=== PATIENT | female | born 1965 | race Caucasian/White ===

== ENCOUNTER → 2017-10-09 11:58 | Outpatient (CLI) | payer OTHER, SELFPAY ==
[2017-10-09 13:51] LABS: Anion Gap 12.1 mmol/L (3-11); BUN 11 mg/dL (7-18); CO2 23.9 mmol/L (21.0-32.0); CREATININE 1.13 mg/dL (0.55-1.02); Calcium 7.6 mg/dL (8.5-10.1); Chloride 104 mmol/L (98-107); Estimated GFR 50.18 (mL/min/1.73m2); Glucose 147 mg/dL (70-100); Magnesium 1.7 mg/dL (1.8-2.4); Potassium 3.4 mmol/L (3.5-5.1); Sodium 140 mmol/L (136-145)
== END ==
PROVIDERS: PCP Family Medicine; Visit Provider Internal Medicine
DX: E83.42 Hypomagnesemia (principal); I10 Essential (primary) hypertension; E03.9 Hypothyroidism, unspecified; E87.6 Hypokalemia
CPT/HCPCS: 36415; 80048; 83735

== ENCOUNTER → 2017-10-16 10:08 | Outpatient (CLI) | payer OTHER, SELFPAY ==
[2017-10-16 10:34] LABS: BUN 29 mg/dL (7-18); Calcium 9.3 mg/dL (8.5-10.1); Chloride 103 mmol/L (98-107); Estimated GFR 29.32 (mL/min/1.73m2); Glucose 117 mg/dL (70-100); Potassium 5.4 mmol/L (3.5-5.1); Sodium 134 mmol/L (136-145)
[2017-10-16 17:21] LABS: Ionized Calcium 1.23 mmol/L (1.12-1.32)
== END ==
PROVIDERS: PCP Family Medicine; Visit Provider Family Medicine
DX: E83.51 Hypocalcemia (principal); I10 Essential (primary) hypertension
CPT/HCPCS: 36415; 80048; 82330

== ENCOUNTER 2017-10-24 10:18 | Emergency (ER) | payer OTHER, SELFPAY ==
[2017-10-24] VITALS (63 sets, daily range): BP systolic 137–155; BP diastolic 86–95; PULSE 70–98; RESP 9–33; TEMP 36.9; O2SAT 95–99
[2017-10-24 12:10] LABS: Abs Immature Grans 0.18 k/cumm (0.0-0.09); Absolute Basophil Count 0.02 k/cumm (0.0-0.2); Absolute Eosinophil Count 0.02 k/cumm (0.0-0.7); Absolute Lymphocyte Count 0.48 k/cumm (1.2-3.4); Absolute Monocyte Count 0.65 k/cumm (0.11-0.7); Absolute Neutrophil Count 22.79 k/cumm (1.2-6.7); Basophils % 0.1; Eosinophils % 0.1; HGB 9.5 g/dL (12.0-15.5); Immature Grans % 0.7; Mean Corp. HGB Concentration 33.9 g/dL (32.0-36.0); Mean Corpuscular Hemoglobin 32.3 pg (27.0-33.0); Mean Corpuscular Volume 95.2 fL (80-95); Mean Platelet Volume 9.4 fL (8.0-11.0); Monocytes % 2.7; Neutrophils % 94.4; Platelet Count 440 x1000/uL (130-400); RBC 2.94 m/cumm (4.00-5.20); RBC Distribution Width 17.5 % (11.7-14.6); White Blood Cell Count 24.14 k/cumm (4.4-10.8)
[2017-10-24 12:21] LABS: ALT 38 U/L (12-78); AST 16 U/L (15-37); Alkaline Phosphatase 92 U/L (46-116); Anion Gap 6.9 mmol/L (3-11); BUN 27 mg/dL (7-18); Bilirubin, Total 0.6 mg/dL (0.2-1.0); CO2 28.1 mmol/L (21.0-32.0); CREATININE 0.98 mg/dL (0.55-1.02); Chloride 103 mmol/L (98-107); Estimated GFR 59.14 (mL/min/1.73m2); Glucose 108 mg/dL (70-100); Magnesium 1.5 mg/dL (1.8-2.4); Sodium 138 mmol/L (136-145); Total Protein 6.4 g/dL (6.4-8.2); Troponin I 0.04 ng/mL (0.00-0.06)
--- NOTE | 2017-10-24 12:22 | ED.GENADUL_ITS ---
Discharge Plan Discharge Details Chief Complaint: GenMedical Clinical Impression: Hypokalemia Primary Care Provider: Trinh Coates ED Provider: Savannah Cheney Disposition Patient Disposition: HOME Condition: Improving Home Meds and New Rx's Prescriptions: No Action fluoxetine [Prozac] 40 MG capsule 40 mg PO DAILY RF: 0 diltiazem HCl 240 MG capsule,extended release 24hr 240 mg PO DAILY RF: 0 triamcinolone acetonide 15 GM cream 15 gm Topical Q12H Qty: 15 RF: 3 cholecalciferol (vitamin D3) 1,000 UNITS tablet 1,000 units PO DAILY RF: 0 ferrous sulfate [Feosol] 325 MG tablet 1 tab PO DAILY RF: 0 losartan 25 mg Tablet PO DAILY RF: 0 cephalexin 500 MG capsule 500 mg PO QID RF: 0 atorvastatin [Lipitor] 20 MG tablet 20 mg PO QPM RF: 0 oxycodone 5 MG tablet 5 mg PO Q4H PRNQty: 12 RF: 0 promethazine 25 MG tablet 25 mg PO Q4H PRN PRNQty: 12 RF: 0 Discharge Instructions Instructions: Hypokalemia (ED) Additional Instructions: Continue to encourage hydration. Please contact her primary care tomorrow to discuss having your potassium and reassess on Sunday. If you develop recurrent symptoms or other new/worsening symptoms to seek care urgently once again. Palliative care referral has been sent, you should hear from them tomorrow regarding follow-up Referrals: Trinh Coates MD [Primary Care Provider] - Discharge Data Discharge Date/Time-TO BE ENTERED AT DEPARTURE: 10/24/17 19:27 Medical Decision Making MDM Narrative Medical decision making narrative: Patient is a 52-year-old female presenting today with multiple complaints. Patient is currently undergoing chemotherapy for breast cancer. Last received treatment last week. Patient is also suffered from hypokalemia and hyperkalemia over the past few weeks. States that when her potassium goes to 1 of the extremes she becomes very symptomatic. She reports that this bone pain that she is experiencing has been experienced previously with her changes in potassium. She reports that when she was admitted last week her discomfort and symptoms are much more severe. She is concerned however that her symptoms may progress and get to that point. She was admitted to the ICU recently with hypokalemia. The facial numbness that she has been experiencing has been constant over the past few weeks. This was associated with her first dose of her new chemotherapy Taxol. Patient does have a drain in the left breast. On exam, this tissue around this is noted to be indurated. However, no tenderness to palpation no surrounding erythema. Patient reports that this induration is typical. I do not see gross amount of drainage coming out. Patient appears frail, pale, fatigued on exam. Not actively vomiting but is holding a emesis bag. Is declining any antiemetics at this time. Patient is endorsing severe pain in her extremities which she describes as bone pain. She reports that she did take oxycodone at home which is unsuccessful at helping her discomfort. She has had narcotics in the past and has found that this has not worked well for her. Prefers to try Tylenol or ibuprofen. I did offer Toradol for the patient which is in agreement with. Nursing staff will access reports, we will hydrate her she does appear quite dehydrated on exam and will give IV Toradol. With her history , and primarily concerned about her potassium level. Not so concerned about her WBC and ANC both of which we will check while here. We will also assess her kidney function. Patient is afebrile. She denies any upper respiratory symptoms. She denies any abdominal pain. Abdomen is soft on exam. Lungs are clear on exam. Discussed plan with patient and she is in agreement EKG was reviewed by Dr. Palomo. She advises no acute abnormalities, no acute ischemic changes are noted We are contacted by the lab, potassium is critically low at 2.7. Will begin replenishing this through the IV. On patient's admission on 10/07/2017, potassium was 1.9. Remaining labs are obtained. White count is 24. On the patient's recent admission on 10/07, WBC was 66. Hemoglobin is 9.5, and recent admission it was noted to be low as well at 9.1. ANC is 22 today, this is down from 64 on 10/07. BUN is 27, this is been elevated historically and it is in the realm of normal. Discussed admission with the patient for her hypokalemia, she would prefer treatment and discharge. I did discuss palliative referral with the patient and her family. They seem quite interested in this given her frequent trips to the hospital as well as complaints at home associated with her chemotherapy treatment inside of Consulted with oncology at [facility]. Spoke with Dr. Feng. He advised that the Taxol is not associated with changes in potassium. They had initially thought that this was associated with patient being on Russo lactone as well as potassium replacement orally. He advised that the patient is already undergoing weekly labs. He advised that this seem to be the most appropriate management and evaluation of her potassium. Given the patient's hyperkalemia historically and recently he did not recommend daily supplementation at this time, rather he encouraged close monitoring of her potassium with replenishment as needed. We did discuss biweekly potassium assessment. He advised that this is typically completed by his primary care physician. He was in agreement with a palliative care referral. I did question the need for admission and he agrees that as the patient wishes to be discharged home, we may try to replenish here and then reassess her potassium level. Patient received a total of 30 mEq IV and 40 p.o. She tolerated this well. She is feeling much improved. Has been hydrated while here. Patient ate twice while in the department. she continues to endorse her facial numbness. However , symptoms are bilateral. No cranial nerve deficit on exam. I did review the side effects of Taxol. Peripheral neuropathy is frequently associated with this medication. I did review further information online and facial numbness often associated and frequent complaint of patients. This did initially began after her first treatment advised that she discuss this further with her oncologist. She appears much more interactive and comfortable as she is moving more about the bed. 2 hours after last dosing of K, level was rechecked as was advised by [facility]. Potassium corrected to 3.8. I discussed these findings with the patient. She will be discharged home with close follow-up. I have asked that she have her blood redrawn on Sunday. She will contact her primary care office to discuss having this arranged. We discussed new/worsening symptoms and to seek care urgently once again. All her questions and concerns were addressed and she is in agreement this plan. Palliative care referral was placed HPI - General Adult General Date/Time Provider Initiated Documentation: 10/24/17 11:10 . Limitations to Documentation: no limitations . Information obtained by: patient and family (Accompanied by ) . HPI Narrative: Patient is a 52-year-old female presenting today with chief complaint of bone pain, malaise, nausea/vomiting and facial numbness. Patient is currently undergoing chemotherapy for breast cancer. Patient received her second of 4 dosing in this current chemotherapy regimen 6 days ago. Patient is currently being treated with Taxol. Reports that she was last treated with A and C. She reports that she was hospitalized here last week with similar symptoms. Was diagnosed with hyperkalemia. Patient reports that her diuretic was stopped. States that her potassium has been very difficult to monitor as it has been spiking and then tanking. Reports that she often gets this bone pain associated with potassium levels. She denies any fevers or chills. Reports that the nausea and vomiting is common associated with her chemotherapy. Does not believe that this is new or changed. She is denying any abdominal pain. No cough. No chest pain. No shortness of breath. Patient does have a drain under the left breast where a spacer is implanted and has had difficulty with healing. She denies any pain around the drain site. Patient reports since being discharged last week she has been having facial numbness. Patient indicates the area from eyebrows down bilaterally as area of numbness. She denies any headache. States that she has intermittent lightheadedness but feels that this is primarily related to her potassium levels Related Data Home Medications Medication Instructions Recorded Confirmed diltiazem HCl 240 mg PO DAILY tab-cap 01/06/13 10/24/17 fluoxetine [Prozac] 40 mg PO DAILY tab-cap 01/06/13 10/24/17 cholecalciferol (vitamin D3) 1,000 units PO DAILY 03/06/13 10/24/17 ferrous sulfate [Feosol] 1 tab PO DAILY 01/26/14 10/24/17 cephalexin 500 mg PO QID 10/07/17 10/24/17 atorvastatin [Lipitor] 20 mg PO QPM 10/08/17 10/24/17 losartan mg PO DAILY 10/24/17 Previous Rx's Medication Instructions Recorded oxycodone 5 mg PO Q4H PRN #12 tab 10/08/17 promethazine 25 mg PO Q4H PRN PRN #12 tab 10/08/17 Allergies Allergy/AdvReac Type Severity Reaction Status Date / Time sertraline [From Zoloft] Allergy Skin Rash Unverified 10/24/17 11:17 Penicillins AdvReac Intermediate Thrush Unverified 10/24/17 11:17 General Stated Complaint: GenMedical GARRY: 3 Review of Systems Constitutional Reports as per HPI, Reports body ache(s), Denies chills, Reports fatigue and Denies fever(s) Eyes Patient Reports as per HPI and Denies loss of vision Cardiovascular Denies chest pain, Denies syncope, Denies pedal edema, Denies leg edema, Reports lightheadedness, Denies palpitations and Denies dyspnea on exertion Respiratory Denies chest congestion, Denies cough, Denies dyspnea on exertion, Denies stridor and Denies wheezing Gastrointestinal Reports as per HPI, Denies abdominal pain, Denies change in bowel habits, Denies diarrhea, Reports nausea and Reports vomiting Genitourinary Denies nipple discharge, Denies dysuria, Denies flank pain and Denies urinary urgency Musculoskeletal Reports as per HPI, Denies abnormal gait and Reports numbness Integumentary/Breasts Reports as per HPI, Denies nipple discharge, Denies non-healing lesions and Denies erythema Neurologic Reports as per HPI, Denies abnormal speech, Denies abnormal gait, Denies behavioral changes, Denies syncope, Denies loss of vision and Reports numbness Psychiatric Denies behavioral changes Endocrine Reports fatigue and Denies palpitations Allergic/Immunologic Denies wheezing PFSH Medical History Attention deficit disorder (ADD) Depression Fibrocystic breast Herpes, genital Hyperlipidemia Hypertension Impaired fasting glucose Kidney stone Obesity Proteinuria Psoriasis Sleep apnea Social History Smoking/Tobacco Use Status: Former Tobacco Use Surgical History Colonoscopy - MAC RIGHT THUMB ARTHROPLASTY (01/27/15) Exam Const General: cooperative, comfortable, well groomed, frail appearing, ill appearing and No well hydrated Orientation: alert and awake [facility] Head: normal to inspection, no palpable skull fracture, normocephalic and atraumatic Ears: hearing grossly normal bilaterally, external ears normal and TM's normal bilaterally General nose exam: external nose normal Face and sinus: normal facial exam Mouth: tongue normal, oropharynx normal, mucous membranes dry, no muffled voice and no trismus Teeth and gingiva: dentition normal Throat: posterior oropharynx normal, tonsils normal, uvula midline, uvula not displaced and no uvular edema Course Vital Signs Temperature 36.9 C 10/24/17 10:29 Pulse 76 10/24/17 10:29 Respiratory Rate 20 10/24/17 10:29 Blood Pressure 155/91 H 10/24/17 10:29 Pulse Oximetry 99 10/24/17 10:29 Temperature 36.9 C 10/24/17 10:29 Pulse 72 10/24/17 11:30 Respiratory Rate 22 10/24/17 11:31 Blood Pressure 143/91 H 10/24/17 11:30 Pulse Oximetry 97 10/24/17 11:31
[2017-10-24 12:24] LABS: Anisocytosis 1+; Diff Comment Agrees w/ Instrument; Hypochromasia 1+
[2017-10-24 12:28] LABS: Potassium 2.7 mmol/L (3.5-5.1)
[2017-10-24] MEDS: Ketorolac 30 MG/ML VIAL IVP (12:29)
[2017-10-24] MEDS: Lactated Ringers 1,000 ML 1000 ML IV (12:29)
[2017-10-24] MEDS: POTASSIUM CHLORIDE 20 MEQ/100 ML BAG 50 MEQ IVPB (12:51)
[2017-10-24 13:48] LABS: Bilirubin Negative (Negative); Blood Negative (Negative); Clarity Clear; Glucose Negative (Negative); Ketones Negative (Negative); Leukocyte Esterase Negative (Negative); Nitrite Negative (Negative); Urobilinogen 0.2 EU/dL (Up TO 0.2)
[2017-10-24 14:01] LABS: Bacteria Few HPF (Negative); Crystals Negative HPF (Negative); Epithelial Cells Moderate HPF (Negative); RBC Negative (0-2)
[2017-10-24 14:02] LABS: C & S Indicated? No/Sq. Contamination; Casts 0-2 Hyaline LPF (Negative); Mucus Trace (Negative)
[2017-10-24] MEDS: Potassium Chloride 20 MEQ TABCR 40 MEQ PO (14:17)
--- NOTE | 2017-10-24 15:27 | PDOC.ERCMPRO ---
Care Management Progress Note 10/24-Savannah CALLES requested assistance with a Palliative Care F/u as soon as possible. Order has been placed. Palliative Care Referral faxed today,.
[2017-10-24 18:45] LABS: Potassium 3.8 mmol/L (3.5-5.1)
== END 2017-10-24 19:27 | disposition home or self-care (01) ==
PROVIDERS: Emergency Provider Physician Assistant; PCP Family Medicine
DX: E87.6 Hypokalemia (principal); C50.912 Malignant neoplasm of unspecified site of left female breast; T45.1X5A Adverse effect of antineoplastic and immunosuppressive drugs, initial encounter; Z79.899 Other long term (current) drug therapy; I10 Essential (primary) hypertension
CPT/HCPCS: 36591; 80053; 93005; 96365; 96375; 99285; 81003; 81015; 83735; 84132; 84484; 85025; 93010; 99283; J1885; J3480; J3490

== ENCOUNTER 2017-10-28 11:41 | Emergency (ER) | payer OTHER, SELFPAY ==
[2017-10-28] VITALS (45 sets, daily range): BP systolic 139–170; BP diastolic 86–108; PULSE 73–98; RESP 11–26; TEMP 36.3; O2SAT 80–98
--- NOTE | 2017-10-28 12:18 | W.ED.GENAD ---
Discharge Plan Disposition Patient Disposition: HOME Condition: Fair Discharge Details Chief Complaint: GenMedical Clinical Impression: Hypokalemia, Hypomagnesemia Primary Care Provider: Trinh Coates ED Provider: Savannah Cheney Home Meds and New Rx's Prescriptions: Continue fluoxetine [Prozac] 40 MG capsule 40 mg PO DAILY RF: 0 diltiazem HCl 240 MG capsule,extended release 24hr 240 mg PO DAILY RF: 0 triamcinolone acetonide 15 GM cream 15 gm Topical Q12H Qty: 15 RF: 3 cholecalciferol (vitamin D3) 1,000 UNITS tablet 1,000 units PO DAILY RF: 0 ferrous sulfate [Feosol] 325 MG tablet 1 tab PO DAILY RF: 0 losartan 25 mg Tablet PO DAILY RF: 0 cephalexin 500 MG capsule 500 mg PO QID RF: 0 atorvastatin [Lipitor] 20 MG tablet 20 mg PO QPM RF: 0 oxycodone 5 MG tablet 5 mg PO Q4H PRNQty: 12 RF: 0 promethazine 25 MG tablet 25 mg PO Q4H PRN PRNQty: 12 RF: 0 Discharge Instructions Additional Instructions: Continue to encourage hydration. Take 40meq of potassium once daily. Please contact your primary care tomorrow to discuss your change in blood draw dates. Should have your potassium and reassess on Sunday per oncology. Please keep her oncology appointment for . At that point, they will reassess her potassium once again. If you develop new or worsening symptoms please seek care urgently once again Palliative care:[phone] Referrals: Trinh Coates MD [Primary Care Provider] - Medical Decision Making [facility] Narrative Medical decision making narrative: Patient presents today with chief complaint of tingling in face hands and feet. On exam, she is neurologically intact. No irregular rhythm was noted. Lungs are clear in all garcia. Her left eye was noted to be enlarged left. No pain at about this. No discoloration. Patient does have a drain in the left breast and did have lymph nodes removed from the left axilla. The drain appears without infection. She is not tachycardic or tachypnea. She is not feeling short of breath. Low suspicion for DVT causing the left arm swelling as the patient is not having any discomfort although patient is at high risk for this so he does remain a concern. Concerned this is related to postsurgical changes. Patinet had been on spironolactone and hydrochlorothiazide. Both these medications that had been stopped when she started having the large fluctuations in her potassium levels. She reports that she has been trying to have a diet high in potassium. EKG reviewed by Dr. Franco. He did compare to previous. No acute abnormality was noted per Dr. Franco's report Potassium is 2.9. Will replace both IV and orally Patient receiving 20meq IV, giving food prior to oral potassium. WBC 14.09, this is down from 24.14. Patient reports she receive neupogen. Platelet count is elevated at 452, this has been elevated historically. Magnesium 1.5. Will replenish this as well. With results back, will consult with [facility] regarding arm swelling, hypokalemia and tingling. We are called back by [facility]. Consult with Dr. Stevenson who is working with oncology. We discussed the patient's history, physical exam findings and laboratory evaluation. She denies replenish the potassium and rechecking. This will recheck the potassium 2 hours after the last dose he has been given. She also advised obtaining ultrasound of the patient's left upper extremity she is concerned for possible DVT as the patient is a high risk. Did discuss the patient is not having any discomfort which we may concern for DVT less likely. This discussed potentially performing a d-dimer as we do not currently have an mechanical manufacturing technician. I am concerned that this may be falsely elevated. She advised that in that setting she would treat the patient with Lovenox and have her return tomorrow for an outpatient ultrasound. Regard to the potassium, she advised placing the patient on 40 mEq daily. Patient is scheduled to have her potassium rechecked tomorrow but we will see if this is able to be pushed back till Sunday. She is scheduled to follow-up with oncology on for another chemotherapy dosing. D-dimer is within normal limits ruling out DVT affecting the patient's swelling in the left Rechecked potassium 2 hours after last dosing, was found to be 3.4. Discussed finding with Dr. Franco who feels that she has come up sufficiently to be able to be discharged home. Discussed these findings with the patient. Advised that she begin a 40 mEq dosing as advised by oncology. She reports that she does have potassium at home but does not know how many she has. A prescription for a week's worth of 40 mEq tablets was called into her pharmacy per her request of oncology. Encourage hydration. She is given strict return precautions she will follow-up in Sunday for reassessment of her potassium level. She will contact her primary care tomorrow to discuss a change in date of blood draw. She has upcoming appointment with oncology. Advised to discuss the tingling she is experiencing at that time with them. I did review side effects expected with her current chemotherapeutic agent found that resulted sensation, particular in the face which is her largest complaint, is not uncommon. In regard to the left upper extremity, advised elevation of this and we did discuss she could try a compression sleeve to help with the swelling. She will discuss this further with oncology on . She is given strict return precautions. All her questions and concerns were addressed and she is in agreement this plan. HPI - General Adult General Mode of arrival: ambulatory. Date/Time Provider Initiated Documentation: 10/28/17 11:42. Limitations to Documentation: no limitations. Information obtained by: patient and family. HPI Narrative: Patient is a 52-year-old female currently undergoing chemotherapy for breast cancer. She was seen by myself for 4 days ago for hypokalemia. Please refer to my previous note for further information. At the time she was discharged, her potassium was 3.8. Since beginning this new chemotherapeutic agent, she has been having difficulty managing her potassium. She has gone through bouts where her potassium was quite low and then spikes very high. She becomes particularly symptomatic when her potassium is low. She feels at this time that her potassium has dropped once again she has noted increased fatigue, increased tingling in her hands. She has chronic nausea which she associates with her chemo. Has not noted increase in this of the past few days. No vomiting today. When she was here last she was endorsing severe bone pain. She is denying severe pain at this time. However, she is concerned that the potassium is recommended again. She already contacted her oncologist who advised evaluation in the emergency department so that we may recheck her potassium level. They advised that if she is found to be low again today that she begin a daily supplementation. They have been hesitant to do this on the last presentation as she had also recently had a high potassium reading. She denies any chest pain. No palpitations. No fevers or chills Related Data Home Medications Medication Instructions Recorded Confirmed diltiazem HCl 240 mg PO DAILY tab-cap 01/06/13 10/28/17 fluoxetine [Prozac] 40 mg PO DAILY tab-cap 01/06/13 10/28/17 cholecalciferol (vitamin D3) 1,000 units PO DAILY 03/06/13 10/28/17 ferrous sulfate [Feosol] 1 tab PO DAILY 01/26/14 10/28/17 cephalexin 500 mg PO QID 10/07/17 10/28/17 atorvastatin [Lipitor] 20 mg PO QPM 10/08/17 10/28/17 losartan mg PO DAILY 10/24/17 Previous Rx's Medication Instructions Recorded oxycodone 5 mg PO Q4H PRN #12 tab 10/08/17 promethazine 25 mg PO Q4H PRN PRN #12 tab 10/08/17 Allergies Allergy/AdvReac Type Severity Reaction Status Date / Time sertraline [From Zoloft] Allergy Skin Rash Unverified 10/28/17 11:57 Penicillins AdvReac Intermediate Thrush Unverified 10/28/17 11:57 General Stated Complaint: GenMedical GARRY: 3 Review of Systems Constitutional Reports as per HPI, Denies chills and Denies fever(s) Eyes Patient Denies change in vision ENT Reports abnormal hearing, Denies bleeding gums, Denies vertigo, Reports dizziness, Denies facial pain (denies pain but continues to endorse facial 'numbness') and Denies hoarseness Cardiovascular Denies chest pain, Denies chest pain at rest, Denies chest pain with activity, Denies diaphoresis, Denies syncope and Denies dyspnea Respiratory Denies chest congestion, Denies cough, Denies dyspnea and Denies wheezing Gastrointestinal Reports as per HPI, Denies abdominal pain, Denies change in bowel habits, Reports nausea and Denies vomiting Genitourinary Reports system reviewed and no additional complaints, except as docu (deneis change in urinary habits) Musculoskeletal Reports as per HPI Integumentary/Breasts Denies rash Neurologic Reports abnormal hearing, Denies vertigo, Reports dizziness and Denies syncope Allergic/Immunologic Denies wheezing [facility] Medical History Attention deficit disorder (ADD) Depression Fibrocystic breast Herpes, genital Hyperlipidemia Hypertension Impaired fasting glucose Kidney stone Obesity Proteinuria Psoriasis Sleep apnea Social History Smoking/Tobacco Use Status: Former Tobacco Use Surgical History Colonoscopy - MAC RIGHT THUMB ARTHROPLASTY (01/27/15) Exam Const General: cooperative, comfortable, no acute distress, well developed and frail appearing Orientation: alert and awake [facility] Head: normal to inspection and normocephalic Ears: hearing grossly normal bilaterally General nose exam: external nose normal Mouth: abnormal oral mucosae (dry) Throat: posterior oropharynx normal, tonsils normal and uvula midline Eyes General: appearance normal, both eyes and all related structures Alignment and Position: alignment normal Eyelids: eyelids normal Pupils: PERRL EOM: EOM intact bilaterally Neck Neck: normal visual inspection, full ROM and no meningeal signs Chest Chest: abnormal inspection of the chest (Exam the chest is concerning for a drain in place under the left breast. The tissue remains dense but no surrounding erythema, warmth or pain on palpation.) Resp Effort & Inspection: normal respiratory effort, able to speak in complete sentences and no respiratory distress Auscultation: clear to auscultation bilaterally Cardio Rate: regular rate Rhythm: regular rhythm Heart Sounds: S1 normal and S2 normal GI Inspection: normal to inspection Palpation: soft, no hepatosplenomegaly, no guarding, not rigid and nontender Auscultation: normal bowel sounds Back/Spine/Pelvis Back: no CVA tenderness Skin General skin exam: no rashes or lesions noted Lesions: no lesions Rashes: no rashes Trauma: no lacerations or abrasions Wounds: no wounds Neuro General: alert, awake and oriented x3 Cranial Nerves: CN's II-XI intact bilaterally Cognition: normal cognition Speech: speech normal Gait: normal gait Motor: muscle tone normal throughout and strength 5/5 throughout Sensory Exam: no sensory deficits noted Coordination: [id number] test normal and [id number] test normal Extrem General: no pedal edema and no calf tenderness Left upper extremity: edema (Circumferential swelling to the left arm. No erythema or discoloration. Full range of motion. No pain on palpation. 2+ distal pulses. No palpable cord) Psych Appearance: grossly normal and well kempt Mental Status: mental status grossly normal Speech and Movement: speech and movement normal Mood: congruent mood Affect: normal affect Attitude: cooperative Thought Process: normal Course Vital Signs Temperature 36.3 C L 10/28/17 11:54 Pulse 90 10/28/17 11:54 Respiratory Rate 16 10/28/17 11:54 Blood Pressure 145/95 H 10/28/17 11:54 Pulse Oximetry 98 10/28/17 11:54 Temperature 36.3 C L 10/28/17 11:54 Pulse 90 10/28/17 11:54 Respiratory Rate 16 10/28/17 11:54 Blood Pressure 145/95 H 10/28/17 11:54 Pulse Oximetry 98 10/28/17 11:54
--- NOTE | 2017-10-28 12:24 | ED.GENADUL_ITS ---
Discharge Plan Disposition Patient Disposition: HOME Condition: Fair Discharge Details Chief Complaint: GenMedical Clinical Impression: Hypokalemia, Hypomagnesemia Primary Care Provider: Trinh Coates ED Provider: Savannah Cheney Home Meds and New Rx's Prescriptions: Continue fluoxetine [Prozac] 40 MG capsule 40 mg PO DAILY RF: 0 diltiazem HCl 240 MG capsule,extended release 24hr 240 mg PO DAILY RF: 0 triamcinolone acetonide 15 GM cream 15 gm Topical Q12H Qty: 15 RF: 3 cholecalciferol (vitamin D3) 1,000 UNITS tablet 1,000 units PO DAILY RF: 0 ferrous sulfate [Feosol] 325 MG tablet 1 tab PO DAILY RF: 0 losartan 25 mg Tablet PO DAILY RF: 0 cephalexin 500 MG capsule 500 mg PO QID RF: 0 atorvastatin [Lipitor] 20 MG tablet 20 mg PO QPM RF: 0 oxycodone 5 MG tablet 5 mg PO Q4H PRNQty: 12 RF: 0 promethazine 25 MG tablet 25 mg PO Q4H PRN PRNQty: 12 RF: 0 Discharge Instructions Additional Instructions: Continue to encourage hydration. Take 40meq of potassium once daily. Please contact your primary care tomorrow to discuss your change in blood draw dates. Should have your potassium and reassess on Sunday per oncology. Please keep her oncology appointment for . At that point, they will reassess her potassium once again. If you develop new or worsening symptoms please seek care urgently once again Palliative care:[phone] Referrals: Trinh Coates MD [Primary Care Provider] - Medical Decision Making [facility] Narrative Medical decision making narrative: Patient presents today with chief complaint of tingling in face hands and feet. On exam, she is neurologically intact. No irregular rhythm was noted. Lungs are clear in all garcia. Her left eye was noted to be enlarged left. No pain at about this. No discoloration. Patient does have a drain in the left breast and did have lymph nodes removed from the left axilla. The drain appears without infection. She is not tachycardic or tachypnea. She is not feeling short of breath. Low suspicion for DVT causing the left arm swelling as the patient is not having any discomfort although patient is at high risk for this so he does remain a concern. Concerned this is related to postsurgical changes. Patinet had been on spironolactone and hydrochlorothiazide. Both these medications that had been stopped when she started having the large fluctuations in her potassium levels. She reports that she has been trying to have a diet high in potassium. EKG reviewed by Dr. Franco. He did compare to previous. No acute abnormality was noted per Dr. Franco's report Potassium is 2.9. Will replace both IV and orally Patient receiving 20meq IV, giving food prior to oral potassium. WBC 14.09, this is down from 24.14. Patient reports she receive neupogen. Platelet count is elevated at 452, this has been elevated historically. Magnesium 1.5. Will replenish this as well. With results back, will consult with [facility] regarding arm swelling, hypokalemia and tingling. We are called back by [facility]. Consult with Dr. Stevenson who is working with oncology. We discussed the patient's history, physical exam findings and laboratory evaluation. She denies replenish the potassium and rechecking. This will recheck the potassium 2 hours after the last dose he has been given. She also advised obtaining ultrasound of the patient's left upper extremity she is concerned for possible DVT as the patient is a high risk. Did discuss the patient is not having any discomfort which we may concern for DVT less likely. This discussed potentially performing a d-dimer as we do not currently have an emission technician. I am concerned that this may be falsely elevated. She advised that in that setting she would treat the patient with Lovenox and have her return tomorrow for an outpatient ultrasound. Regard to the potassium, she advised placing the patient on 40 mEq daily. Patient is scheduled to have her potassium rechecked tomorrow but we will see if this is able to be pushed back till Sunday. She is scheduled to follow-up with oncology on for another chemotherapy dosing. D-dimer is within normal limits ruling out DVT affecting the patient's swelling in the left Rechecked potassium 2 hours after last dosing, was found to be 3.4. Discussed finding with Dr. Franco who feels that she has come up sufficiently to be able to be discharged home. Discussed these findings with the patient. Advised that she begin a 40 mEq dosing as advised by oncology. She reports that she does have potassium at home but does not know how many she has. A prescription for a week's worth of 40 mEq tablets was called into her pharmacy per her request of oncology. Encourage hydration. She is given strict return precautions she will follow-up in Sunday for reassessment of her potassium level. She will contact her primary care tomorrow to discuss a change in date of blood draw. She has upcoming appointment with oncology. Advised to discuss the tingling she is experiencing at that time with them. I did review side effects expected with her current chemotherapeutic agent found that resulted sensation, particular in the face which is her largest complaint, is not uncommon. In regard to the left upper extremity, advised elevation of this and we did discuss she could try a compression sleeve to help with the swelling. She will discuss this further with oncology on . She is given strict return precautions. All her questions and concerns were addressed and she is in agreement this plan. HPI - General Adult General Mode of arrival: ambulatory . Date/Time Provider Initiated Documentation: 10/28/17 11:42 . Limitations to Documentation: no limitations . Information obtained by: patient and family . HPI Narrative: Patient is a 52-year-old female currently undergoing chemotherapy for breast cancer. She was seen by myself for 4 days ago for hypokalemia. Please refer to my previous note for further information. At the time she was discharged, her potassium was 3.8. Since beginning this new chemotherapeutic agent, she has been having difficulty managing her potassium. She has gone through bouts where her potassium was quite low and then spikes very high. She becomes particularly symptomatic when her potassium is low. She feels at this time that her potassium has dropped once again she has noted increased fatigue, increased tingling in her hands. She has chronic nausea which she associates with her chemo. Has not noted increase in this of the past few days. No vomiting today. When she was here last she was endorsing severe bone pain. She is denying severe pain at this time. However, she is concerned that the potassium is recommended again. She already contacted her oncologist who advised evaluation in the emergency department so that we may recheck her potassium level. They advised that if she is found to be low again today that she begin a daily supplementation. They have been hesitant to do this on the last presentation as she had also recently had a high potassium reading. She denies any chest pain. No palpitations. No fevers or chills Related Data Home Medications Medication Instructions Recorded Confirmed diltiazem HCl 240 mg PO DAILY tab-cap 01/06/13 10/28/17 fluoxetine [Prozac] 40 mg PO DAILY tab-cap 01/06/13 10/28/17 cholecalciferol (vitamin D3) 1,000 units PO DAILY 03/06/13 10/28/17 ferrous sulfate [Feosol] 1 tab PO DAILY 01/26/14 10/28/17 cephalexin 500 mg PO QID 10/07/17 10/28/17 atorvastatin [Lipitor] 20 mg PO QPM 10/08/17 10/28/17 losartan mg PO DAILY 10/24/17 Previous Rx's Medication Instructions Recorded oxycodone 5 mg PO Q4H PRN #12 tab 10/08/17 promethazine 25 mg PO Q4H PRN PRN #12 tab 10/08/17 Allergies Allergy/AdvReac Type Severity Reaction Status Date / Time sertraline [From Zoloft] Allergy Skin Rash Unverified 10/28/17 11:57 Penicillins AdvReac Intermediate Thrush Unverified 10/28/17 11:57 General Stated Complaint: GenMedical GARRY: 3 Review of Systems Constitutional Reports as per HPI, Denies chills and Denies fever(s) Eyes Patient Denies change in vision ENT Reports abnormal hearing, Denies bleeding gums, Denies vertigo, Reports dizziness, Denies facial pain (denies pain but continues to endorse facial ' numbness') and Denies hoarseness Cardiovascular Denies chest pain, Denies chest pain at rest, Denies chest pain with activity, Denies diaphoresis, Denies syncope and Denies dyspnea Respiratory Denies chest congestion, Denies cough, Denies dyspnea and Denies wheezing Gastrointestinal Reports as per HPI, Denies abdominal pain, Denies change in bowel habits, Reports nausea and Denies vomiting Genitourinary Reports system reviewed and no additional complaints, except as docu (deneis change in urinary habits) Musculoskeletal Reports as per HPI Integumentary/Breasts Denies rash Neurologic Reports abnormal hearing, Denies vertigo, Reports dizziness and Denies syncope Allergic/Immunologic Denies wheezing [facility] Medical History Attention deficit disorder (ADD) Depression Fibrocystic breast Herpes, genital Hyperlipidemia Hypertension Impaired fasting glucose Kidney stone Obesity Proteinuria Psoriasis Sleep apnea Social History Smoking/Tobacco Use Status: Former Tobacco Use Surgical History Colonoscopy - MAC RIGHT THUMB ARTHROPLASTY (01/27/15) Exam Const General: cooperative, comfortable, no acute distress, well developed and frail appearing Orientation: alert and awake [facility] Head: normal to inspection and normocephalic Ears: hearing grossly normal bilaterally General nose exam: external nose normal Mouth: abnormal oral mucosae (dry) Throat: posterior oropharynx normal, tonsils normal and uvula midline Eyes General: appearance normal, both eyes and all related structures Alignment and Position: alignment normal Eyelids: eyelids normal Pupils: PERRL EOM: EOM intact bilaterally Neck Neck: normal visual inspection, full ROM and no meningeal signs Chest Chest: abnormal inspection of the chest (Exam the chest is concerning for a drain in place under the left breast. The tissue remains dense but no surrounding erythema, warmth or pain on palpation.) Resp Effort & Inspection: normal respiratory effort, able to speak in complete sentences and no respiratory distress Auscultation: clear to auscultation bilaterally Cardio Rate: regular rate Rhythm: regular rhythm Heart Sounds: S1 normal and S2 normal GI Inspection: normal to inspection Palpation: soft, no hepatosplenomegaly, no guarding, not rigid and nontender Auscultation: normal bowel sounds Back/Spine/Pelvis Back: no CVA tenderness Skin General skin exam: no rashes or lesions noted Lesions: no lesions Rashes: no rashes Trauma: no lacerations or abrasions Wounds: no wounds Neuro General: alert, awake and oriented x3 Cranial Nerves: CN's II-XI intact bilaterally Cognition: normal cognition Speech: speech normal Gait: normal gait Motor: muscle tone normal throughout and strength 5/5 throughout Sensory Exam: no sensory deficits noted Coordination: [id number] test normal and [id number] test normal Extrem General: no pedal edema and no calf tenderness Left upper extremity: edema (Circumferential swelling to the left arm. No erythema or discoloration. Full range of motion. No pain on palpation. 2+ distal pulses. No palpable cord) Psych Appearance: grossly normal and well kempt Mental Status: mental status grossly normal Speech and Movement: speech and movement normal Mood: congruent mood Affect: normal affect Attitude: cooperative Thought Process: normal Course Vital Signs Temperature 36.3 C L 10/28/17 11:54 Pulse 90 10/28/17 11:54 Respiratory Rate 16 10/28/17 11:54 Blood Pressure 145/95 H 10/28/17 11:54 Pulse Oximetry 98 10/28/17 11:54 Temperature 36.3 C L 10/28/17 11:54 Pulse 90 10/28/17 11:54 Respiratory Rate 16 10/28/17 11:54 Blood Pressure 145/95 H 10/28/17 11:54 Pulse Oximetry 98 10/28/17 11:54
[2017-10-28] MEDS: Normal Saline 1,000 ML 1000 ML IV (12:30)
[2017-10-28 12:32] LABS: Absolute Lymphocyte Count 0.99 k/cumm (1.2-3.4); HCT 28.9 % (36.0-46.0); HGB 9.2 g/dL (12.0-15.5); Mean Corp. HGB Concentration 31.8 g/dL (32.0-36.0); Mean Corpuscular Hemoglobin 31.9 pg (27.0-33.0); Mean Corpuscular Volume 100.3 fL (80-95); Mean Platelet Volume 8.6 fL (8.0-11.0); Platelet Count 452 x1000/uL (130-400); RBC 2.88 m/cumm (4.00-5.20); RBC Distribution Width 19.3 % (11.7-14.6); White Blood Cell Count 14.09 k/cumm (4.4-10.8)
[2017-10-28 12:43] LABS: ALT 34 U/L (12-78); AST 12 U/L (15-37); Albumin 2.7 g/dL (3.4-5.0); Alkaline Phosphatase 88 U/L (46-116); Anion Gap 8.9 mmol/L (3-11); BUN 29 mg/dL (7-18); Bilirubin, Total 0.3 mg/dL (0.2-1.0); CO2 29.1 mmol/L (21.0-32.0); CREATININE 0.97 mg/dL (0.55-1.02); Calcium 8.1 mg/dL (8.5-10.1); Chloride 106 mmol/L (98-107); Estimated GFR 59.84 (mL/min/1.73m2); Glucose 109 mg/dL (70-100); Sodium 144 mmol/L (136-145); Total Protein 5.8 g/dL (6.4-8.2)
[2017-10-28 12:45] LABS: Potassium 2.9 mmol/L (3.5-5.1)
[2017-10-28 12:49] LABS: Absolute Eosinophil Count 0.14 k/cumm (0.0-0.7); Absolute Monocyte Count 1.83 k/cumm (0.11-0.7); Absolute Neutrophil Count 10.85 k/cumm (1.2-6.7)
[2017-10-28 12:50] LABS: Anisocytosis 2+; Diff Comment Manual Differential; Nucleated RBC 1 /100WBC; Polychromasia Present
[2017-10-28 13:00] LABS: Magnesium 1.5 mg/dL (1.8-2.4)
[2017-10-28] MEDS: POTASSIUM CHLORIDE 20 MEQ/100 ML BAG 50 MEQ IVPB (13:00)
[2017-10-28] MEDS: Potassium Chloride 20 MEQ TABCR 40 MEQ PO (14:22)
[2017-10-28] MEDS: Magnesium Oxide 400 MG TAB PO (14:22)
[2017-10-28 14:38] LABS: D-Dimer 308 ng/mlFEU (<500)
[2017-10-28 17:07] LABS: Potassium 3.4 mmol/L (3.5-5.1)
== END 2017-10-28 18:29 | disposition home or self-care (01) ==
PROVIDERS: Emergency Provider Physician Assistant; PCP Family Medicine
DX: E87.6 Hypokalemia (principal); E83.42 Hypomagnesemia; C50.912 Malignant neoplasm of unspecified site of left female breast; T45.1X5A Adverse effect of antineoplastic and immunosuppressive drugs, initial encounter; Z79.899 Other long term (current) drug therapy; I10 Essential (primary) hypertension; M79.89 Other specified soft tissue disorders
CPT/HCPCS: 36591; 80053; 93005; 96361; 96365; 96366; 99285; 83735; 84132; 85025; 85379; 93010; J3480

== ENCOUNTER 2017-10-30 09:46 | Outpatient (CLI) | payer OTHER, SELFPAY ==
[2017-10-30 11:01] LABS: BUN 18 mg/dL (7-18); CREATININE 1.11 mg/dL (0.55-1.02); Calcium 7.9 mg/dL (8.5-10.1); Chloride 104 mmol/L (98-107); Estimated GFR 51.22 (mL/min/1.73m2); Glucose 201 mg/dL (70-100); Potassium 3.3 mmol/L (3.5-5.1); Sodium 139 mmol/L (136-145)
== END 2017-10-30 10:06 ==
PROVIDERS: PCP Family Medicine; Visit Provider Family Medicine
DX: E87.5 Hyperkalemia (principal)
CPT/HCPCS: 36415; 80048

== ENCOUNTER 2017-11-12 16:09 | Outpatient (CLI) | payer OTHER, SELFPAY ==
[2017-11-12 17:41] LABS: Anion Gap 11.4 mmol/L (3-11); BUN 22 mg/dL (7-18); CO2 28.6 mmol/L (21.0-32.0); CREATININE 1.05 mg/dL (0.55-1.02); Calcium 8.7 mg/dL (8.5-10.1); Chloride 105 mmol/L (98-107); Estimated GFR 54.61 (mL/min/1.73m2); Glucose 151 mg/dL (70-100); Sodium 145 mmol/L (136-145)
== END 2017-11-12 16:29 ==
PROVIDERS: PCP Family Medicine; Visit Provider Family Medicine
DX: E87.6 Hypokalemia (principal)
CPT/HCPCS: 36415; 80048

== ENCOUNTER 2017-11-12 16:11 | Outpatient (REF) | payer OTHER, SELFPAY | END 2017-11-12 16:31 | LOC: NCHCN 16:11 | PROVIDERS: PCP Family Medicine; Visit Provider Family Medicine | DX: N76.6 Ulceration of vulva (principal) | CPT/HCPCS: 87529; 87070; 87205 ==

== ENCOUNTER 2017-11-19 15:11 | Outpatient (CLI) | payer OTHER, SELFPAY ==
[2017-11-19 16:36] LABS: Anion Gap 8.2 mmol/L (3-11); BUN 16 mg/dL (7-18); CO2 28.8 mmol/L (21.0-32.0); CREATININE 0.88 mg/dL (0.55-1.02); Calcium 8.4 mg/dL (8.5-10.1); Chloride 105 mmol/L (98-107); Glucose 133 mg/dL (70-100); Potassium 3.4 mmol/L (3.5-5.1); Sodium 142 mmol/L (136-145)
== END 2017-11-19 15:31 ==
PROVIDERS: PCP Family Medicine; Visit Provider Family Medicine
DX: R73.9 Hyperglycemia, unspecified (principal); E87.6 Hypokalemia; I10 Essential (primary) hypertension; Z00.00 Encounter for general adult medical examination without abnormal findings
CPT/HCPCS: 36415; 80048; 82088; 83036; 84244

== ENCOUNTER 2017-11-26 07:58 | Outpatient (CLI) | payer OTHER, SELFPAY ==
[2017-11-26 09:07] LABS: Hemoglobin A1C 6.1 % (4.5-6.2)
[2017-11-26 15:06] LABS: Anion Gap 11.4 mmol/L (3-11); BUN 22 mg/dL (7-18); CO2 25.6 mmol/L (21.0-32.0); CREATININE 0.96 mg/dL (0.55-1.02); Calcium 9.1 mg/dL (8.5-10.1); Chloride 109 mmol/L (98-107); Glucose 103 mg/dL (70-100); Potassium 4.2 mmol/L (3.5-5.1); Sodium 146 mmol/L (136-145)
[2017-11-28 11:30] LABS: Renin Activity, Plasma <0.6 ng/mL/h
== END 2017-11-26 08:18 ==
PROVIDERS: PCP Family Medicine; Visit Provider Family Medicine
DX: R73.9 Hyperglycemia, unspecified (principal); E87.6 Hypokalemia
CPT/HCPCS: 36415; 80048; 82088; 83036; 84244

== ENCOUNTER 2018-02-07 12:43 | Outpatient (CLI) | payer OTHER, SELFPAY ==
[2018-02-07 14:49] LABS: Anion Gap 12.8 mmol/L (3-11); BUN 18 mg/dL (7-18); CO2 27.2 mmol/L (21.0-32.0); Calcium 9.3 mg/dL (8.5-10.1); Chloride 105 mmol/L (98-107); Estimated GFR 51.76 (mL/min/1.73m2); Glucose 105 mg/dL (70-100); Potassium 3.4 mmol/L (3.5-5.1); Sodium 145 mmol/L (136-145)
== END 2018-02-07 13:03 ==
PROVIDERS: PCP Family Medicine; Visit Provider Family Medicine
DX: E87.6 Hypokalemia (principal)
CPT/HCPCS: 36415; 80048

== ENCOUNTER 2018-03-01 10:48 | Outpatient (CLI) | payer OTHER, SELFPAY ==
[2018-03-01 12:28] LABS: Anion Gap 9.6 mmol/L (3-11); BUN 19 mg/dL (7-18); CO2 27.4 mmol/L (21.0-32.0); Calcium 9.2 mg/dL (8.5-10.1); Chloride 106 mmol/L (98-107); Estimated GFR 51.76 (mL/min/1.73m2); Glucose 95 mg/dL (70-100); Potassium 4.4 mmol/L (3.5-5.1); Sodium 143 mmol/L (136-145)
== END 2018-03-01 11:08 ==
PROVIDERS: PCP Family Medicine; Visit Provider Family Medicine
DX: E87.6 Hypokalemia (principal)
CPT/HCPCS: 36415; 80048

== ENCOUNTER 2018-03-15 07:38 | Outpatient (CLI) | payer OTHER, SELFPAY | END 2018-03-15 07:58 | PROVIDERS: PCP Family Medicine; Visit Provider Internal Medicine Endocrinology, Diabetes & Metabolism | DX: E87.6 Hypokalemia (principal) | CPT/HCPCS: 36415; 82533 ==

== ENCOUNTER 2018-03-28 10:05 | Outpatient (REF) | payer OTHER, SELFPAY ==
[2018-03-29 13:24] LABS: Creatinine,Urine 67.92 mg/dL
[2018-03-29 13:25] LABS: Creatinine,24hr Ur 1.15 g/24hr (0.60-1.80); Total Volume 1775 ml
[2018-04-02 23:04] LABS: Cortisol, U 16 mcg/24 h (3.5-45); Urine Volume 1775 mL
== END 2018-03-28 10:25 ==
LOC: LBN 10:05
PROVIDERS: PCP Family Medicine; Visit Provider Internal Medicine Endocrinology, Diabetes & Metabolism
DX: E87.6 Hypokalemia (principal); I10 Essential (primary) hypertension
CPT/HCPCS: 81050; 82530; 82570; 83789

== ENCOUNTER 2018-04-01 09:18 | Outpatient (REF) | payer OTHER, SELFPAY ==
[2018-04-02 15:16] LABS: Creatinine,Urine 52.25 mg/dL
[2018-04-02 16:03] LABS: Total Volume 2100 ml
[2018-04-04 18:05] LABS: Cortisol, U 27 mcg/24 h (3.5-45); Urine Volume 2100 mL
== END 2018-04-01 09:38 ==
LOC: NCHCN 09:18
PROVIDERS: PCP Family Medicine; Visit Provider Internal Medicine Endocrinology, Diabetes & Metabolism
DX: E87.6 Hypokalemia (principal); I10 Essential (primary) hypertension
CPT/HCPCS: 81050; 82530; 82570; 83789

== ENCOUNTER 2018-04-23 12:10 | Outpatient (CLI) | payer OTHER, SELFPAY | END 2018-04-23 12:30 | PROVIDERS: PCP Family Medicine; Visit Provider Internal Medicine Endocrinology, Diabetes & Metabolism | DX: E87.6 Hypokalemia (principal) | CPT/HCPCS: 36415; 82088 ==

== ENCOUNTER 2018-05-13 10:03 | Outpatient (CLI) | payer OTHER, SELFPAY ==
[2018-05-13 11:31] LABS: Potassium 3.5 mmol/L (3.5-5.1)
== END 2018-05-13 10:23 ==
PROVIDERS: Visit Provider Internal Medicine Endocrinology, Diabetes & Metabolism
DX: E87.6 Hypokalemia (principal)
CPT/HCPCS: 36415; 84132

== ENCOUNTER 2018-05-21 10:21 | Outpatient (CLI) | payer OTHER, SELFPAY ==
[2018-05-24 11:44] LABS: Renin Activity, Plasma <0.6 ng/mL/h
== END 2018-05-21 10:41 ==
PROVIDERS: PCP Family Medicine; Visit Provider Internal Medicine Endocrinology, Diabetes & Metabolism
DX: E87.6 Hypokalemia (principal)
CPT/HCPCS: 36415; 82085; 82088; 84244

== ENCOUNTER 2018-06-12 14:54 | Outpatient (CLI) | payer OTHER, SELFPAY ==
[2018-06-12 16:48] LABS: Anion Gap 9.6 mmol/L (3-11); BUN 29 mg/dL (7-18); CO2 28.4 mmol/L (21.0-32.0); CREATININE 1.03 mg/dL (0.55-1.02); Calcium 8.7 mg/dL (8.5-10.1); Chloride 105 mmol/L (98-107); Estimated GFR 55.84 (mL/min/1.73m2); Glucose 86 mg/dL (70-100); Sodium 143 mmol/L (136-145); TSH (W/Ref FT4) 3.64 uIU/mL (0.358-3.74)
[2018-06-12 16:54] LABS: Potassium 2.8 mmol/L (3.5-5.1)
== END 2018-06-12 15:14 ==
PROVIDERS: PCP Family Medicine; Visit Provider Family Medicine
DX: I10 Essential (primary) hypertension (principal); E87.6 Hypokalemia
CPT/HCPCS: 36415; 80048; 84443

== ENCOUNTER 2018-06-12 15:30 | Outpatient (REF) | payer OTHER, SELFPAY ==
--- NOTE | 2018-06-12 14:30 | PAPFT_PTH ---
PATIENT: Wendy Sandoval LOC: NCN #:[id number] AGE/SX: 52/F ROOM: RE06/12/[address]: Trinh Coates : 1965 BED: DIS: 06/12/2018 SPEC #: [id number] RECD: 06/13/18 10:55 STATUS: SPIKE REPrincess #: [id number] SNOW: 06/12/18 14:[address]: Trinh Coates DEPT: [facility] Cytology RECD BY: Christy Bean Tissues: 1 - CX/ENDOCX FOR PAP SMEARS Procedures: PAP THIN PREP/UVM Screening HPV DNA PROBE Comments: [id number]
== END 2018-06-12 15:50 ==
LOC: NCHCN 15:30
PROVIDERS: PCP Family Medicine; Visit Provider Family Medicine
DX: Z12.4 Encounter for screening for malignant neoplasm of cervix (principal); Z11.51 Encounter for screening for human papillomavirus (HPV)
CPT/HCPCS: 88142; 87624

== ENCOUNTER 2018-06-20 10:00 | Outpatient (CLI) | payer OTHER, SELFPAY ==
[2018-06-20 11:15] LABS: Magnesium 2.1 mg/dL (1.8-2.4); Potassium 5.3 mmol/L (3.5-5.1)
== END 2018-06-20 10:20 ==
PROVIDERS: PCP Family Medicine; Visit Provider Family Medicine
DX: E87.6 Hypokalemia (principal)
CPT/HCPCS: 36415; 83735; 84132

== ENCOUNTER 2018-06-28 09:49 | Outpatient (CLI) | payer OTHER, SELFPAY ==
[2018-06-28 11:20] LABS: Potassium 3.6 mmol/L (3.5-5.1)
== END 2018-06-28 10:09 ==
PROVIDERS: PCP Family Medicine; Visit Provider Family Medicine
DX: E87.6 Hypokalemia (principal)
CPT/HCPCS: 36415; 84132

== ENCOUNTER 2018-07-06 10:49 | Outpatient (CLI) | payer OTHER, SELFPAY ==
[2018-07-06 11:23] LABS: Potassium 3.9 mmol/L (3.5-5.1)
== END 2018-07-06 11:09 ==
PROVIDERS: PCP Family Medicine; Visit Provider Family Medicine
DX: E87.6 Hypokalemia (principal)
CPT/HCPCS: 36415; 84132

== ENCOUNTER 2018-08-08 11:28 | Outpatient (CLI) | payer OTHER, SELFPAY ==
[2018-08-08 12:35] LABS: Anion Gap 12.5 mmol/L (3-11); BUN 33 mg/dL (7-18); CO2 23.5 mmol/L (21.0-32.0); CREATININE 1.25 mg/dL (0.55-1.02); Calcium 9.1 mg/dL (8.5-10.1); Chloride 105 mmol/L (98-107); Glucose 77 mg/dL (70-100); Potassium 4.7 mmol/L (3.5-5.1); Sodium 141 mmol/L (136-145)
== END 2018-08-08 11:48 ==
PROVIDERS: PCP Family Medicine; Visit Provider Internal Medicine Endocrinology, Diabetes & Metabolism
DX: I10 Essential (primary) hypertension (principal); E87.6 Hypokalemia; E26.9 Hyperaldosteronism, unspecified
CPT/HCPCS: 36415; 80048; 84132

== ENCOUNTER 2018-08-27 14:06 | Outpatient (CLI) | payer OTHER, SELFPAY ==
[2018-08-27 16:27] LABS: Anion Gap 10.9 mmol/L (3-11); BUN 28 mg/dL (7-18); CO2 26.1 mmol/L (21.0-32.0); CREATININE 1.18 mg/dL (0.55-1.02); Calcium 8.9 mg/dL (8.5-10.1); Chloride 106 mmol/L (98-107); Estimated GFR 47.56 (mL/min/1.73m2); Glucose 81 mg/dL (70-100); Potassium 3.8 mmol/L (3.5-5.1); Sodium 143 mmol/L (136-145)
== END 2018-08-27 14:26 ==
PROVIDERS: PCP Family Medicine; Visit Provider Family Medicine
DX: I10 Essential (primary) hypertension (principal); Z79.899 Other long term (current) drug therapy
CPT/HCPCS: 36415; 80048

== ENCOUNTER 2018-10-10 18:37 | Outpatient (REF) | payer OTHER, SELFPAY ==
[2018-10-10 18:20] LABS: Anion Gap 10.9 mmol/L (3-11); BUN 27 mg/dL (7-18); CO2 30.1 mmol/L (21.0-32.0); CREATININE 1.15 mg/dL (0.55-1.02); Chloride 105 mmol/L (98-107); Estimated GFR 48.99 (mL/min/1.73m2); Glucose 79 mg/dL (70-100); Potassium 4.3 mmol/L (3.5-5.1); Sodium 146 mmol/L (136-145)
== END 2018-10-10 18:57 ==
LOC: NCHCN 18:37
PROVIDERS: PCP Family Medicine; Visit Provider Family Medicine
DX: I10 Essential (primary) hypertension (principal)
CPT/HCPCS: 80048

== ENCOUNTER 2018-10-23 15:42 | Outpatient (REF) | payer OTHER, SELFPAY ==
[2018-10-23 19:57] LABS: Anion Gap 1.7 mmol/L (3-11); BUN 24 mg/dL (7-18); CO2 28.3 mmol/L (21.0-32.0); CREATININE 1.15 mg/dL (0.55-1.02); Calcium 8.8 mg/dL (8.5-10.1); Chloride 104 mmol/L (98-107); Estimated GFR 48.99 (mL/min/1.73m2); Glucose 94 mg/dL (70-100); HCT 40.4 % (36.0-46.0); HGB 13.2 g/dL (12.0-15.5); Magnesium 2.1 mg/dL (1.8-2.4); Mean Corp. HGB Concentration 32.7 g/dL (32.0-36.0); Mean Corpuscular Hemoglobin 31.2 pg (27.0-33.0); Mean Corpuscular Volume 95.5 fL (80-95); Mean Platelet Volume 9.6 fL (8.0-11.0); Platelet Count 364 x1000/uL (130-400); Potassium 4.3 mmol/L (3.5-5.1); RBC 4.23 m/cumm (4.00-5.20); RBC Distribution Width 13.5 % (11.7-14.6); Sodium 134 mmol/L (136-145); White Blood Cell Count 7.38 k/cumm (4.4-10.8)
== END 2018-10-23 16:02 ==
LOC: NCHCN 15:42
PROVIDERS: PCP Family Medicine; Visit Provider Family Medicine
DX: E87.6 Hypokalemia (principal); N18.3 Chronic kidney disease, stage 3 (moderate); R55 Syncope and collapse
CPT/HCPCS: 80048; 85027; 83735

== ENCOUNTER 2018-12-12 12:28 | Outpatient (REF) | payer OTHER, SELFPAY ==
[2018-12-12 19:33] LABS: Anion Gap 9.3 mmol/L (3-11); BUN 24 mg/dL (7-18); CO2 27.7 mmol/L (21.0-32.0); CREATININE 1.22 mg/dL (0.55-1.02); Calcium 9.5 mg/dL (8.5-10.1); Chloride 105 mmol/L (98-107); Estimated GFR 45.76 (mL/min/1.73m2); Glucose 70 mg/dL (70-100); Potassium 4.5 mmol/L (3.5-5.1); Sodium 142 mmol/L (136-145)
[2018-12-12 19:39] LABS: Hemoglobin A1C 5.9 % (4.5-6.2)
== END 2018-12-12 12:48 ==
LOC: NCHCN 12:28
PROVIDERS: PCP Family Medicine; Visit Provider Family Medicine
DX: R73.03 Prediabetes (principal); I10 Essential (primary) hypertension; E87.6 Hypokalemia
CPT/HCPCS: 80048; 83036; 83735

== ENCOUNTER 2019-01-06 01:21 | Outpatient (CLI) | payer OTHER, SELFPAY ==
--- NOTE | 2019-01-06 11:19 | DI.CT_ITS ---
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 There is no evidence of fracture. The globes appear intact. The extraocular muscles and optic nerves appear symmetric. There is no enlargement of the extraocular muscles or salivary glands. No mass is identified. There is no abnormal attenuat ion in the intraconal fat. The sinuses appear clear. There is an incidental septation in the right maxillary sinus. The mastoid air cells appear clear where visualized. IMPRESSION: Proptosis, right greater than left. No evidence of fracture.
== END 2019-01-06 01:41 ==
PROVIDERS: PCP Family Medicine; Visit Provider Ophthalmology Ophthalmic Plastic and Reconstructive Surgery
DX: H05.331 Deformity of right orbit due to trauma or surgery (principal); H05.25 Intermittent exophthalmos
CPT/HCPCS: 70480

== ENCOUNTER 2019-03-07 11:13 | Outpatient (CLI) | payer OTHER, SELFPAY ==
--- NOTE | 2019-03-07 13:02 | DI.US_ITS ---
EXAM: US UPPER EXTREMITY VENOUS LT CLINICAL HISTORY: LYMPHEDEMA, WORSE SWELLING, INCREASED PAIN, ? CORD BICEPS REGION, ? DVT TECHNIQUE: Ultrasound performed using standard protocol. COMPARISON: No exams were available for comparison FINDINGS: The internal jugular, subclavian, axillary, basilic, brachial and cephalic veins as well as forearm veins appear free of thrombus. No localized fluid collection is seen. There are no superficial vari cosities or superficial venous thrombosis. IMPRESSION: Negative left upper extremity ultrasound.
== END 2019-03-07 11:33 ==
PROVIDERS: PCP Family Medicine; Visit Provider Family Medicine
DX: M79.602 Pain in left arm (principal); R22.32 Localized swelling, mass and lump, left upper limb
CPT/HCPCS: 93971

== ENCOUNTER 2019-07-03 01:50 | Outpatient (CLI) | payer OTHER, SELFPAY ==
[2019-07-03 10:38] LABS: Hemoglobin A1C 6.1 % (3.8-5.6)
[2019-07-03 11:11] LABS: Anion Gap 9.2 mmol/L (3-11); BUN 35 mg/dL (7-18); CO2 24.8 mmol/L (21.0-32.0); CREATININE 1.58 mg/dL (0.55-1.02); Calcium 8.8 mg/dL (8.5-10.1); Chloride 106 mmol/L (98-107); Estimated GFR 33.83 (mL/min/1.73m2); Glucose 108 mg/dL (74-106); Magnesium 1.8 mg/dL (1.8-2.4); Sodium 140 mmol/L (136-145)
== END 2019-07-03 02:10 ==
PROVIDERS: PCP Family Medicine; Visit Provider Radiology Radiation Oncology
DX: R73.03 Prediabetes (principal); I10 Essential (primary) hypertension; E87.6 Hypokalemia; C50.912 Malignant neoplasm of unspecified site of left female breast; Z17.0 Estrogen receptor positive status [ER+]
CPT/HCPCS: 36415; 80048; 83036; 83735

== ENCOUNTER 2019-07-09 00:39 | Outpatient (CLI) | payer OTHER, SELFPAY ==
--- NOTE | 2019-07-09 | DI.NM_ITS ---
EXAM: NM BONE SCAN WHOLE BODY GRP CLINICAL HISTORY: H/O LT BREAST CA,C50.912.ON TAMOXIFEN, RT UPPER ARM PAIN. TECHNIQUE: Injected Dose: 24 mCi Tc-99m MDP Delayed Images: 2-3 hours. COMPARISON: CT CT CHEST W from 07/09/2019 FINDINGS: Increased radiotracer uptake is seen in the shoulders bilaterally right greater than left. The activ ity predominantly involves the acromioclavicular joints. This likely reflects degenerative changes. CT scan of the chest performed the same day shows no destructive lesion in the acromioclavicular pablo nts. There is increased uptake in the mid feet bilaterally. This appears symmetric and is probably degenerative. There is also increased radiotracer uptake seen in the region of the 1st metatarsophal angeal joints bilaterally right greater than left. This also likely reflects degenerative change. X -rays of the feet may be considered for further evaluation. There is increased radiotracer uptake in the cervical spine. This may be degenerative. Cervical spine x-ray should be considered for furthe r evaluation. Bilateral renal excretion is identified. No focal area of intense suspicious uptake is seen. IMPRESSION: 1. Largely symmetric increased activity seen in the shoulders and feet which likely reflects degenera tive changes. X-rays may be obtained for further evaluation. 2. Increased radiotracer uptake seen in the cervical spine. X-ray of the cervical spine may be obtai hollis for further evaluation. 3. No definite evidence to suggest osseous metastatic disease. DATA REPOSITORY:
--- NOTE | 2019-07-09 | DI.CT_ITS ---
EXAM: CT CHEST W CLINICAL HISTORY: H/O LT BREAST CA,C50.912,S/P MASTECTOMIES,UOQ PAIN LT RECONSTRUCTED BREAST/ TECHNIQUE: Imaging Protocol: Axial computed tomography images with coronal and sagittal reformatted images were created and reviewed CONTRAST MATERIAL: Intravenous: Omnipaque 350 Contrast volume:35 mL. COMPARISON: CT RENAL COLIC WO CONTRAST from 02/06/2017 FINDINGS: Tracheobronchial tree: Patent where visualized. Mediastinum and Alba: No dominant adenopathy or fluid collection. Pulmonary parenchyma: No focal consolidating infiltrate is seen. Scarring or atelectasis is seen in the lung apices. Atelectasis is seen in the dependent portion of the lungs. No pulmonary nodules ar e present. Pleura: No effusion or pneumothorax. Heart: Mildly enlarged. Mild coronary artery calcification. No significant pericardial effusion. Aorta: Thoracic aorta non-dilated. Mild atherosclerosis. Upper abdomen: Cholelithiasis. No biliary ductal dilatation. Left nephrolithiasis. Left renal cys t. Lymph nodes: Within normal limits. Bones: Degenerative changes. No aggressive osseous lesions. Soft tissues: Bilateral breast implants. IMPRESSION: 1. No evidence of thoracic metastatic disease. 2. No acute pulmonary process. 3. Cholelithiasis no biliary ductal dilatation. 4. Left nephrolithiasis. RADIATION DOSE DELIVERED: 629.56mGy.cm Total DLP DATA REPOSITORY: All CT scans at this facility are submitted to the National Radiology Data Registry (NRDR) Dose Index Registry (DIR) with the [employer] (A[employer]). RADIATION OPTIMIZATION: All CT scans at this facility use at least one of these dose optimization te chniques: automated exposure control; mA and/or kV adjustment per patient size (includes targeted exa ms where dose is matched to clinical indication); or iterative reconstruction.
[2019-07-09 08:32] LABS: CREATININE 1.57 mg/dL (0.55-1.02); Estimated GFR 34.08 (mL/min/1.73m2)
[2019-07-09] MEDS: Omnipaque 350 MG/ML 50 ML BTL IJ (08:54)
[2019-07-09] MEDS: Normal Saline Flush 10 ML SYR IVP (08:55)
[2019-07-09] MEDS: Normal Saline - Diluent 50 ML VIAL IV (08:55)
== END 2019-07-09 00:59 ==
PROVIDERS: PCP Family Medicine; Visit Provider Radiology Radiation Oncology
DX: N64.4 Mastodynia (principal); I51.7 Cardiomegaly; K80.20 Calculus of gallbladder without cholecystitis without obstruction; N20.0 Calculus of kidney; N28.1 Cyst of kidney, acquired; Z98.82 Breast implant status; J98.11 Atelectasis; C50.912 Malignant neoplasm of unspecified site of left female breast; M79.621 Pain in right upper arm; M19.011 Primary osteoarthritis, right shoulder; M19.012 Primary osteoarthritis, left shoulder
CPT/HCPCS: 78306; 71260; 82565; Q9967

== ENCOUNTER 2019-07-27 17:13 | Emergency (ER) | payer OTHER, SELFPAY ==
[2019-07-27] VITALS (29 sets, daily range): BP systolic 154–172; BP diastolic 92–112; PULSE 59–70; RESP 12–20; TEMP 36.8; O2SAT 93–100
--- NOTE | 2019-07-27 17:29 | W.ED.GENAD ---
Discharge Plan Disposition Patient Disposition: HOME Condition: Stable Discharge Details Chief Complaint: Palpitatns Clinical Impression: Hypertension, Hypokalemia Primary Care Provider: Trinh Coates ED Provider: Ross Ventura Home Meds and New Rx's Prescriptions: Continued fluoxetine [Prozac] 40 MG capsule 40 mg PO DAILY RF: 0 diltiazem HCl 240 MG capsule,extended release 24hr 240 mg PO HS RF: 0 triamcinolone acetonide 15 GM cream 15 gm Topical Q12H Qty: 15 RF: 3 cholecalciferol (vitamin D3) 1,000 UNITS tablet 1,000 units PO DAILY RF: 0 ferrous sulfate [Feosol] 325 MG tablet 1 tab PO DAILY RF: 0 losartan 25 mg Tablet 25 mg PO DAILY RF: 0 spironolactone 25 mg tablet 25 mg PO DAILY RF: 0 gabapentin 300 mg capsule 300 mg PO BID RF: 0 tamoxifen 20 mg tablet 20 mg PO DAILY RF: 0 potassium chloride 20 mEq tablet extended release 20 meq PO DAILY RF: 0 Discharge Instructions Instructions: Hypertension (ED) Additional Instructions: Continue normal routine and activities. Continue your regularly prescribed medications including this evening's blood pressure medications. Please take your blood pressure once daily at the same time at home. Please follow-up with Dr. Coates in clinic for recheck. Today, you received fluids, 20 mEq of potassium, underwent laboratory testing and CT scan of the head. Your CT scan showed normal brain white matter, normal ventricles, and no evidence of sinus infection. Medical Decision Making 54-year-old female presents from home with a sensation over 2 days time of generalized weakness and lightheadedness similar to when she has had hypokalemia in the past. She does take potassium supplementation but had an elevated potassium recently and was decreased from 20 mEq twice daily to 20 mEq once daily. She arrives to the ER well-appearing, in no significant distress. Her vital signs are reassuring. Initial EKG reveals a normal sinus rhythm with a rate of 60, the QRS is narrow, there is nonspecific ST segment flattening throughout. The ST segment changes are similar to those seen on October 28, 2017 Patient's potassium is 3.9. Remainder of her chemistries note a BUN of 31 with creatinine 1.49. During her visit her blood pressure slowly crept up and she began to feel slight vertiginous symptoms and stated seemed to be worse when bending forward. She was given clonidine 0.1 mg and referred for noncontrast CT scan of the head. Patient improved following clonidine. CT scan of the head is unremarkable. We will ask care management to make her a follow-up to recheck in clinic both blood pressure and potassium levels. She understands homecare as well as indications to seek reevaluation. Lab Data Lab results reviewed: Yes I reviewed the patient's lab results. Labs: Laboratory Results - last 24 hr 07/27/19 07/27/19 17:25 17:25 WBC 7.84 RBC 4.07 Hgb 12.8 Hct 39.1 MCV 96.1 H MCH 31.4 MCHC 32.7 RDW 13.4 Plt Count 312 MPV 9.2 Immature Gran % 0.4 Neutrophils % 60.4 Lymphocytes % 23.2 Monocytes % 10.1 Eosinophils % 5.0 Basophils % 0.9 Absolute Neutrophils 4.74 Absolute Lymphocytes 1.82 Absolute Monocytes 0.79 H Absolute Eosinophils 0.39 Absolute Basophils 0.07 Sodium 142 Potassium 3.9 Chloride 107 Carbon Dioxide 24.1 Anion Gap 10.9 BUN 31 H Creatinine 1.49 H Estimated GFR/1.73 m2 36.20 Glucose 132 H Calcium 8.9 Magnesium 1.8 Total Bilirubin 0.3 AST 16 ALT 26 Alkaline Phosphatase 85 Troponin I < 0.05 Total Protein 7.0 Albumin 3.4 HPI General Mode of arrival: ambulatory. Date/Time Provider Initiated Documentation: 07/27/19 17:17. Limitations to Documentation: no limitations. Information obtained by: patient. History of Present Illness 54 year old F presents to the emergency department with the chief complaint of Weakness and palpitations, described as moderate and similar to prior episodes, Quality is described as dull and constant, and is localized to the chest. Patient reports no radiation. Patient started experiencing this hour(s) and it has been constant. No relieving factors improve symptom(s), No exacerbating factors reported . Patient notes loss of appetite; denies syncope. Patient did receive the following treatments prior to arrival, none Related Data Home Medications Medication Instructions Recorded Confirmed diltiazem HCl 240 mg PO HS tab-cap 01/06/13 07/27/19 fluoxetine [Prozac] 40 mg PO DAILY tab-cap 01/06/13 07/27/19 cholecalciferol (vitamin D3) 1,000 units PO DAILY 03/06/13 07/27/19 triamcinolone acetonide 15 gm TOPICAL Q12H #15 gm 12/11/13 07/27/19 ferrous sulfate [Feosol] 1 tab PO DAILY 01/26/14 07/27/19 losartan 25 mg PO DAILY 10/24/17 07/27/19 gabapentin 300 mg PO BID 07/27/19 07/27/19 potassium chloride 20 meq PO DAILY 07/27/19 07/27/19 spironolactone 25 mg PO DAILY 07/27/19 07/27/19 tamoxifen 20 mg PO DAILY 07/27/19 07/27/19 Allergies Allergy/AdvReac Type Severity Reaction Status Date / Time sertraline [From Zoloft] Allergy Skin Rash Unverified 07/27/19 17:42 Penicillins AdvReac Intermediate Thrush Unverified 07/27/19 17:42 General Stated Complaint: Palpitatns GARRY: 3 Review of Systems Narrative: States she has had a decrease in potassium from twice daily to once daily dosing over 3 weeks time. Mild diarrhea this week. No diarrhea today. No vomiting. No recent illness. She has not traveled. 7 systems reviewed and otherwise negative. [facility] Medical History Attention deficit disorder (ADD) Depression Fibrocystic breast Herpes, genital Hyperlipidemia Hypertension Impaired fasting glucose Kidney stone Obesity Proteinuria Psoriasis Sleep apnea Social History Smoking/Tobacco Use Status: Never Alcohol Intake: current Alcohol Intake frequency: holidays/special occasions only Drug use: Never Substance use type: does not use Seatbelt use: always Do you feel safe at home: Yes Do you feel safe in your relationship?: Yes Exam Narrative Exam Narrative: GEN: awake, alert, oriented 3. Pleasant, well groomed, interactive. HEAD: Normocephalic, atraumatic ENT: Mucous membranes moist, oropharynx unremarkable, External ear exam unremarkable EYES: PERRL, EOMI NECK: Full ROM, no BLANCA, no menigismus CHEST/RESP: Nontender, clear to auscultation bilateral, no wheeze/rhonchi/rales CARDIOVASCULAR: RRR, no murmur, rub carina. 2+ Rad pulse bilateral ABDOMEN: Soft, nontender, no mass. +Bowel sounds EXT: Full ROM, no edema, no rash Neuro: Grossly normal neurologic exam, conversant, interactive. Psych: Speech fluent, thoughts congruent, affect normal Course Vital Signs Vital signs: Vital Signs Temperature 36.8 C 07/27/19 17:17 Pulse 67 07/27/19 17:17 Respiratory Rate 07/27/19 17:17 Blood Pressure 168/92 H 07/27/19 17:17 Pulse Oximetry 98 07/27/19 17:17 Temperature 36.8 C 07/27/19 17:17 Temperature Source Skin 07/27/19 17:17 Pulse 67 07/27/19 17:17 Respiratory Rate 07/27/19 17:17 Blood Pressure 168/92 H 07/27/19 17:17 Blood Pressure Position Sitting 07/27/19 17:17 Pulse Oximetry 98 07/27/19 17:17 Oxygen Delivery Method Room Air 07/27/19 17:17 Oxygen Flow Rate 0 07/27/19 17:17 Pain Level 3 07/27/19 17:17
[2019-07-27 17:38] LABS: Abs Immature Grans 0.03 k/cumm (0.0-0.09); Absolute Basophil Count 0.07 k/cumm (0.0-0.2); Absolute Eosinophil Count 0.39 k/cumm (0.0-0.7); Absolute Lymphocyte Count 1.82 k/cumm (1.2-3.4); Absolute Monocyte Count 0.79 k/cumm (0.11-0.7); Absolute Neutrophil Count 4.74 k/cumm (1.2-6.7); Basophils % 0.9; HCT 39.1 % (36.0-46.0); HGB 12.8 g/dL (12.0-15.5); Immature Grans % 0.4 %; Lymphocytes % 23.2; Mean Corp. HGB Concentration 32.7 g/dL (32.0-36.0); Mean Corpuscular Hemoglobin 31.4 pg (27.0-33.0); Mean Corpuscular Volume 96.1 fL (80-95); Mean Platelet Volume 9.2 fL (8.0-11.0); Monocytes % 10.1; Neutrophils % 60.4; Platelet Count 312 x1000/uL (130-400); RBC 4.07 m/cumm (4.00-5.20); RBC Distribution Width 13.4 % (11.7-14.6); White Blood Cell Count 7.84 k/cumm (4.4-10.8)
[2019-07-27] MEDS: Normal Saline 1,000 ML 150 ML IV (17:41)
[2019-07-27 18:03] LABS: ALT 26 U/L (14-59); AST 16 U/L (15-37); Albumin 3.4 g/dL (3.4-5.0); Alkaline Phosphatase 85 U/L (46-116); Anion Gap 10.9 mmol/L (3-11); BUN 31 mg/dL (7-18); Bilirubin, Total 0.3 mg/dL (0.2-1.0); CO2 24.1 mmol/L (21.0-32.0); CREATININE 1.49 mg/dL (0.55-1.02); Calcium 8.9 mg/dL (8.5-10.1); Chloride 107 mmol/L (98-107); Glucose 132 mg/dL (74-106); Magnesium 1.8 mg/dL (1.8-2.4); Potassium 3.9 mmol/L (3.5-5.1); Sodium 142 mmol/L (136-145)
[2019-07-27 18:11] LABS: Troponin I < 0.05 ng/mL (<0.06)
[2019-07-27] MEDS: Meclizine 25 MG TAB PO (18:22)
[2019-07-27] MEDS: Potassium Chloride 20 MEQ TABCR PO (18:22)
--- NOTE | 2019-07-27 19:29 | DI.CT_ITS ---
EXAM: CT HEAD WO CLINICAL HISTORY: Elevated blood pressure, feels vertiginous. TECHNIQUE: Imaging Protocol: Axial computed tomography images with coronal and sagittal reformatted images were created and reviewed COMPARISON: CT CT ORBITS WO from 01/06/2019 FINDINGS: Ventricles and Extra axial spaces: Normal in size and morphology for the patient's age. Hemorrhage: None. Cerebral parenchyma: Normal. Midline shift: None. Brainstem/Cerebellum: Normal. Calvarium: Normal. Visualized Paranasal sinuses/Mastoids: Clear. Soft Tissues: Unremarkable. IMPRESSION: No acute intracranial process. RADIATION DOSE DELIVERED: 737.37mGy.cm Total DLP DATA REPOSITORY: All CT scans at this facility are submitted to the National Radiology Data Registry (NRDR) Dose Index Registry (DIR) with the [employer] (ACR). RADIATION OPTIMIZATION: All CT scans at this facility use at least one of these dose optimization te chniques: automated exposure control; mA and/or kV adjustment per patient size (includes targeted exa ms where dose is matched to clinical indication); or iterative reconstruction.
[2019-07-27] MEDS: cloNIDine 0.1 MG TAB PO (19:33)
--- NOTE | 2019-07-27 19:39 | DI.VRAD_ITS ---
PROCEDURE INFORMATION: Exam: CT Head Without Contrast Exam date and time: 07/27/2019 7:22 PM Age: 54 years old Clinical indication: Patient HX: Dizziness for 2 days, no fall TECHNIQUE: Imaging protocol: Computed tomography of the head without contrast. Radiation optimization: All CT scans at this facility use at least one of these dose optimization techniques: automated exposure control; mA and/or kV adjustment per patient size (includes targeted exams where dose is matched to clinical indication); or iterative reconstruction. Other technique: STROKE PROTOCOL was implemented. COMPARISON: No relevant prior studies available. FINDINGS: Brain: Normal. No hemorrhage. Unremarkable white matter. No mass effect. Ventricles: Normal. No ventriculomegaly. Bones/joints: Unremarkable. No acute fracture. Sinuses: Visualized sinuses are unremarkable. No fluid levels. Mastoid air cells: Visualized mastoid air cells are well aerated. Soft tissues: Unremarkable. IMPRESSION: 1. No intracranial hemorrhage. 2. No large territory acute CVA. ASSESSMENT: ASPECTS (Petal Stroke Program Early CT Score) is 10. Dictated and Authenticated by: Usman Ortiz MD. Ordering:MENG Hawkins MD
--- NOTE | 2019-07-27 20:13 | NUR.NOTE ---
Nursing Note: FAXEED REFERAL TO PCP FOR RECHECK 07/27/19
== END 2019-07-27 20:25 | disposition home or self-care (01) ==
PROVIDERS: Emergency Provider Emergency Medicine; PCP Family Medicine
DX: E87.6 Hypokalemia (principal); I10 Essential (primary) hypertension; R51 Headache; R42 Dizziness and giddiness
CPT/HCPCS: 36415; 80053; 93005; 96360; 96361; 99285; 70450; 83735; 84484; 85025; 93010; 99284

== ENCOUNTER 2019-08-05 13:10 | Outpatient (CLI) | payer OTHER, SELFPAY ==
--- NOTE | 2019-08-05 13:00 | DI.RAD_ITS ---
EXAM: XR SHOULDER RT COMPLETE 2+V CLINICAL HISTORY: SHOULDER PAIN. TECHNIQUE: 2D digital imaging was performed. COMPARISON: No exams were available for comparison FINDINGS: BONES: No acute fracture is present. No bony destructive lesion is seen. Subchondral cysts in the hum eral head. JOINTS: No dislocation present. Moderate spurring at the AC joint. Mild spurring at the glenoid. SOFT TISSUE: Normal. IMPRESSION: Degenerative changes. No acute abnormality. DATA REPOSITORY: RADIATION DOSE DELIVERED:
== END 2019-08-05 13:30 ==
PROVIDERS: PCP Family Medicine; Referring Provider Family Medicine; Visit Provider Student in an Organized Health Care Education/Training Program
DX: M25.511 Pain in right shoulder (principal); M19.011 Primary osteoarthritis, right shoulder
CPT/HCPCS: 73030

== ENCOUNTER 2019-09-30 02:40 | Outpatient (CLI) | payer OTHER, SELFPAY ==
[2019-09-30 10:11] LABS: HCT 39.6 % (36.0-46.0); HGB 12.7 g/dL (11.2-15.7); MCH 31.7 pg (27.0-33.0); MCHC 32.1 % (32.0-36.0); MCV 98.8 fL (80-95); MPV 9.4 fL (8.0-11.0); Platelet Count 310 10^3/uL (130-400); RBC 4.01 10^6/uL (3.93-5.22); RDW 12.6 % (11.7-14.6); RDW-SD 45.4 fL; WBC 8.15 10^3/uL (4.4-10.8)
[2019-09-30 11:13] LABS: Anion Gap 8.1 mmol/L (3-11); BUN 37 mg/dL (7-18); CO2 25.9 mmol/L (21.0-32.0); CREATININE 1.53 mg/dL (0.55-1.02); Chloride 105 mmol/L (98-107); Estimated GFR 35.11 (mL/min/1.73m2); Ferritin 127 ng/mL (8-252); Glucose 106 mg/dL (74-106); Potassium 5.2 mmol/L (3.5-5.1); Sodium 139 mmol/L (136-145)
== END 2019-09-30 03:00 ==
PROVIDERS: PCP Family Medicine; Visit Provider Family Medicine
DX: R53.83 Other fatigue (principal); N18.3 Chronic kidney disease, stage 3 (moderate)
CPT/HCPCS: 36415; 80048; 85027; 82728

== ENCOUNTER 2019-10-01 02:08 | Outpatient (CLI) | payer OTHER, SELFPAY ==
--- NOTE | 2019-10-01 06:30 | DI.MRI_ITS ---
EXAM: MR UPPER JOINT RT WO CLINICAL HISTORY: SHOULDER PAIN, RT ROTATOR CUFF TENDINITIS,M75.81. TECHNIQUE: Multiplanar multisequence MRI was performed. COMPARISON: MR MRI - L UPPER JOINT WO CONT from 05/13/2012 FINDINGS: BONES: There is no fracture or contusion pattern. JOINTS: Moderate hypertrophic changes are seen at the acromioclavicular joint. The glenohumeral join t is normal. Cystic changes are seen in the lesser tuberosity. TENDONS: Supraspinatus: There is a full-thickness tear through the supraspinatus tendon anteriorly with a gap of approximately 2 cm. Infraspinatus: Tendinosis of the infraspinatus tendon. Subscapularis: Hyperintense signal seen in the subscapularis tendon consistent with partial tear/tend inosis. Teres Minor: Unremarkable. Biceps and Badger: Tendinosis of the biceps tendon. MUSCLES: Mild fatty atrophy of the infraspinatus and supraspinatus muscles. GLENOID LABRUM: Degeneration seen in the superior labrum. SOFT TISSUES: Unremarkable. LIGAMENTS: Unremarkable. OTHER: Small amount of fluid in the subacromial subdeltoid bursa. IMPRESSION: 1. Full-thickness tear of the supraspinatus tendon. 2. Partial tear of/tendinosis of the subscapularis tendon, tendinosis of the infraspinatus and biceps tendon. 3. Mild fatty atrophy of the infraspinatus and supraspinatus muscles. 4. Degenerative changes seen at the acromioclavicular joint and the greater tuberosity. 5. Question of degeneration of the superior labrum. DATA REPOSITORY:
== END 2019-10-01 02:28 ==
PROVIDERS: PCP Family Medicine; Visit Provider Student in an Organized Health Care Education/Training Program
DX: S46.011A Strain of muscle(s) and tendon(s) of the rotator cuff of right shoulder, initial encounter (principal); S46.211A Strain of muscle, fascia and tendon of other parts of biceps, right arm, initial encounter; M19.011 Primary osteoarthritis, right shoulder
CPT/HCPCS: 73221

== ENCOUNTER 2019-10-30 03:01 | Outpatient (CLI) | payer OTHER, SELFPAY ==
[2019-10-30 12:04] LABS: Anion Gap 8.4 mmol/L (3-11); BUN 36 mg/dL (7-18); CO2 24.6 mmol/L (21.0-32.0); CREATININE 1.54 mg/dL (0.55-1.02); Calcium 8.6 mg/dL (8.5-10.1); Calculated LDL 192 mg/dL (<100); Chloride 105 mmol/L (98-107); Cholesterol 283 mg/dL (<200); Estimated GFR 34.85 (mL/min/1.73m2); Glucose 103 mg/dL (74-106); HDL Cholesterol 39 mg/dL (40-60); Potassium 4.5 mmol/L (3.5-5.1); Sodium 138 mmol/L (136-145); Triglyceride 264 mg/dL (<150)
== END 2019-10-30 03:21 ==
PROVIDERS: PCP Family Medicine; Visit Provider Family Medicine
DX: I10 Essential (primary) hypertension (principal); E87.6 Hypokalemia; R73.03 Prediabetes
CPT/HCPCS: 36415; 80048; 80061; 83036; 83735

== ENCOUNTER 2019-12-09 07:29 | Outpatient (CLI) | payer OTHER, SELFPAY ==
[2019-12-11 02:09] LABS: COVID-19 RT-PCR Result NEGATIVE (Negative)
== END 2019-12-09 07:49 ==
PROVIDERS: PCP Family Medicine; Visit Provider Student in an Organized Health Care Education/Training Program
DX: Z11.59 Encounter for screening for other viral diseases (principal); Z01.818 Encounter for other preprocedural examination; M19.011 Primary osteoarthritis, right shoulder
CPT/HCPCS: U0003

== ENCOUNTER 2019-12-12 06:16 | Day surgery (SDC) | payer OTHER, SELFPAY ==
[2019-12-12] VITALS (7 sets, daily range): BP systolic 113–134; BP diastolic 65–95; PULSE 66–75; RESP 12–21; TEMP 36.4–36.7; O2SAT 93–100
[2019-12-12] MEDS: Lactated Ringers 1,000 ML 100 ML IV ×2 (07:20→08:50)
[2019-12-12] MEDS: CLINDAMYCIN 900 MG/50 ML BAG 50 MG IVPB (07:56)
[2019-12-12] MEDS: EPINEPHrine 30 MG/30 ML VIAL (08:52)
--- NOTE | 2019-12-12 11:45 | PDOC.DSDIS_ITS ---
Discharge Plan Disposition Patient Disposition: HOME Condition: Stable Discharge Details Reason For Visit: Right shoulder surgery Attending Provider: Samm Nazario Primary Care Provider: Trinh Coates Home Meds and New Rx's Prescriptions: New aspirin 81 mg tablet,delayed release (DR/EC) 81 mg PO DAILY 14 Days Qty: 14 RF: 0 naproxen 250 mg tablet 250 - 500 mg PO BID PRN (Reason: Moderate pain or swelling) Qty: 60 RF: 0 oxycodone 5 mg tablet 5 - 10 mg PO Q4H PRN (Reason: moderate to severe pain) Qty: 22 RF: 0 Continued Stelara 45 mg/0.5 mL solution 45 mg SC Q12W RF: 0 fluoxetine [Prozac] 40 MG capsule 40 mg PO DAILY RF: 0 diltiazem HCl 240 MG capsule,extended release 24hr 240 mg PO HS RF: 0 cholecalciferol (vitamin D3) 1,000 UNITS tablet 1,000 units PO DAILY RF: 0 ferrous sulfate [Feosol] 325 MG tablet 1 tab PO DAILY RF: 0 losartan 25 mg Tablet 25 mg PO DAILY RF: 0 spironolactone 25 mg tablet 25 mg PO DAILY RF: 0 gabapentin 300 mg capsule 300 mg PO BID RF: 0 tamoxifen 20 mg tablet 20 mg PO DAILY RF: 0 Discharge Instructions Additional Instructions: Surgery: Shoulder arthroscopy with rotator cuff repair, biceps tenodesis, extensive debridement, distal clavicle excision, and subacromial decompression. Activity: You should keep your arm at your side in a neutral position at all times except for physical therapy. Do not try to lift or raise your arm using your own muscles. You should use the sling whenever you are out of the house. You may have to adjust the abduction pillow or remove it for comfort. At home it is best to remove the sling and rest the arm on a pillow at your side or support the operative side with your other hand. You may allow the arm to dangle at your side. A physical therapy prescription will be provided separately today and sent electronically to start in a few weeks. Prescriptions: Resume home dose tamoxifen in 2 weeks Aspirin 81 mg take 1 daily starting tomorrow to prevent a blood clot for 2 weeks Naproxen 250 mg take 1-2 every 12 hours with a meal as needed for moderate pain Oxycodone 5 mg take 1-2 every 4-6 hours as needed for severe pain You may use [id number] Tylenol (acetaminophen) as needed for mild pain. These pain medications may be taken all at once or in different combinations as needed. Also, recommend Colace (docusate) as a stool softener as surgery and pain medicine cause constipation. Dressings: Remove shoulder bandage after 3 days. Leave the sticky Steri-Strips in place until they fall off or remove them after you shower. Cover the inc isions with Band-Aids or leave them open to air. [The biceps bandage (inside upper arm) is glued on separately. You may leave this one on a few days longer if it is difficult to remove. There is also glue underneath this bandage that can be left in place until it peels off.] You may shower after 5 days. Follow-up: 10-[address] Nazario You may take off the leg compression stockings this evening at home. You may also leave them on a few days longer if you have a history of leg swelling or edema. Let us know right away if you develop any redness, drainage, fevers, chest pain, or trouble breathing. Do not drink alcohol or drive for at least 24 hours after anesthesia. Please call the office during business hours with any questions or concerns. Referrals: Samm Nazario MD [ [facility] STAFF PHYSICIAN] - Discharge Orders Discharge Orders: Discharge Order (Routine); Ordered 12/12/19 Ordered By: Samm Nazario DS: Diagnosis Discharge Diagnosis (1) Rotator cuff tear, right: Status: Acute (2) Biceps tendinitis of right shoulder: Status: Acute (3) Arthritis of right acromioclavicular joint: Status: Acute
[2019-12-12] MEDS: fentaNYL 100 MCG/2 ML VIAL IVP (11:50)
--- NOTE | 2019-12-12 11:56 | ROE_ITS ---
Date of service: 12/12/19 Time of Service: 11:45 Operative Note Operative Note DATE OF PROCEDURE: 12/12/19 PRE-OP DIAGNOSIS: Right: 1. Rotator cuff tear 2. LHB tendinopathy 3. Bursitis 4. AC joint arthritis POST-OP DIAGNOSIS: same PROCEDURE: Right: 1. Rotator cuff repair, CPT# 36002. This involved repair of the supraspinatus using anchors and sutures to reattach the rotator cuff back to the footprint of the greater tuberosity. 2. Arthroscopic biceps tenodesis, CPT# 43382. This involved arthroscopically suturing and reattaching the long head of the biceps tendon to the proximal h umerus in the subacromial space to a lateral row anchor at the correct tension. 3. Extensive debridement, CPT# 08357. This involved using arthroscopic hand instruments, power instruments, and radiofrequency instruments to release to release the long head of the biceps tendon and debride areas of labral tearing, synovitis, and chondromalacia about the biceps groove within the glenohumeral joint anteriorly, superiorly and posteriorly. 4. Subacromial decompression with partial acromioplasty, CPT# 69504. This involved using arthroscopic power instruments and a radiofrequency wand to complete a bursectomy and remove bone spurs on the undersurface of the acromion. 5. Arthroscopic distal clavicle excision, CPT# 35546. This involved arthroscopically exposing the underside of the acromioclavicular joint, smoothing out bone spurs, and using a aliya to remove approximately 5 mm of the distal clavicle and acromion so there was no engaging bone left at the joint. The mortgage loan assistant was medically required in order to help assist in techniques above, which require positioning the arm, holding the arthroscope, and manipulating multiple instruments and sutures at the same time. This cannot be done without the help of an experienced mortgage loan assistant. SURGEON: Samm Nazario BEREAVEMENT PROGRAM COORDINATOR: Oliverio Tate ANESTHESIA: GETA and regional ESTIMATED BLOOD LOSS: 20 PATHOLOGY: none sent COMPLICATIONS: None Patient was transported to: PACU Patient's condition: stable Implants: Arthrex: 4.75mm SwiveLocks x 4 Indications: The patient was diagnosed with the above conditions and appropriately indicated for surgical intervention. Please see complete medical record for details. Findings: Exam under anesthesia: Full range of motion, no instability Glenohumeral joint: Significant 50% thickness long head of the biceps tear with significant subluxation and fraying about the biceps sling. Full-thickness delaminated supraspinatus tear starting at the rotator interval and involving some of the anterior infraspinatus fibers. Significant synovitis and labral fraying anteriorly and moderately posteriorly. Subacromial space: Moderate bursitis. Significant subacromial bone spurs. Significant engaging acromion distal clavicle arthritis. Full-thickness moderately retracted supraspinatus tear starting at the rotator interval with a delaminated portion centrally and posteriorly and involving the anterior fibers of the infraspinatus wrapping around the greater tuberosity. Remnant tissue laterally about the greater tuberosity. Procedure Description: In the operating room, general anesthesia was induced. Bilateral shoulders were examined. The patient was positioned in the beachchair position. All bony prominences were well-padded. Preoperative antibiotics were administered. The shoulder was prepped and draped in the usual sterile fashion. The correct patient, procedure, and side of the procedure were all verified prior to incision. Starting through the posterior portal a standard complete diagnostic arthroscopy was performed of the glenohumeral joint including inspection of the long head of the biceps, anterior and superior labrum, subscapularis tendon, supraspinatus and infraspinatus tendons, and axillary recess. The glenoid and humeral head cartilage as well as the posterior labrum were inspected from an anterior viewing portal. Significant findings and interventions noted above. The biceps tendon was released from the superior labrum using arthroscopic scissors. Starting through the posterior portal, the arthroscope was directed into the subacromial space. A lateral 50 yard line lateral portal was created. A combination of power instruments and a radiofrequency ablator were used to debride bursitis anteriorly, posteriorly, and laterally as well as expose and smooth bone spurring on the undersurface of the acromion. The coracoacromial ligament was partially released. The bursectomy was completed viewing laterally and working from posteriorly and the rotator cuff was thoroughly inspected with findings noted above. The anterior portal was redirected towards the undersurface of the AC joint. A shaver and electrocautery device were used to clear soft tissue from the undersurface of the AC joint. A aliya was then inserted and used to remove a total of 5 mm of the distal clavicle and acromion. Care was taken to alternate between working through the anterior portal and viewing through the anterior portal to ensure that proper amount of bone was removed and there was no engaging bone left behind especially superiorly. Cannulas were inserted at the superior anterior lateral and superior posterior lateral margins of the acromion as well as at the lateral 50 yard line portal. The rotator cuff tear was inspected and debrided of frayed tissue at the margins exposing a full-thickness complete and moderately retracted tear. The greater was tuberosity cleared of fibrous tissue over the footprint and the bursectomy was extended laterally. Cuff grasper was used to provisionally reduce the rotator cuff, which was excellent from posterior with a small amount of deficient tissue anterior laterally. Percutaneously a punch was used to localize placement the first medial row anchor starting anteriorly that was loaded with fiber tape. A suture passer was as well as a tissue grasper was used to pass both ends of this fiber tape through all layers of the tendon at the appropriate level medially. This process was repeated for the second posterior medial row anchor. Next, a self retrieving suture passer was used to pass fiber link sutures in cinch mode between these medial row anchors. This FiberLink and a fiber tape from the anterior and posterior anchors was brought to an anterior lateral row anchor anterior taking care to ensure appropriate tension and reduction of the rotator cuff with assistance of the FiberLink contracture suture. This process without a fiber link was repeated for the posterior lateral row posterior anchor achieving compression over the reduced rotator cuff repair. This anchor contained a knotless repair stitch that was then passed through the long head of the biceps tendon, which was just anterior to the repair and used to secure it and draped over the anterior lateral footprint for additional soft tissue coverage in this area as well to complete an arthroscopic tenodesis. The repair was inspected through shoulder range of motion and found to be stable with secure fixation. The shoulder was drained of arthroscopic fluid. All portal sites were copiously irrigated. These incisions were closed using 3-0 Monocryl in a buried fashion, covered with Mastisol, Steri-Strips, Xeroform, dry gauze, and ABDs. The dressings were covered and secured with Medipore tape. The operative extremity was placed into a sling for immobilization. The patient awoke from anesthesia without complication and was transferred to the recovery room in a stable condition.
== END 2019-12-12 14:27 | disposition home or self-care (01) ==
PROVIDERS: PCP Family Medicine; Visit Provider Student in an Organized Health Care Education/Training Program
PROC: (CPT 29827; principal; 2019-12-12 07:30)
PROC: (CPT 23430; 2019-12-12 07:30)
DX: M75.121 Complete rotator cuff tear or rupture of right shoulder, not specified as traumatic (principal); M75.51 Bursitis of right shoulder; M75.21 Bicipital tendinitis, right shoulder; M19.011 Primary osteoarthritis, right shoulder; I10 Essential (primary) hypertension; E78.00 Pure hypercholesterolemia, unspecified
CPT/HCPCS: 29827; 29828; 29826; 29823; 29824; 76942; J1885; J2001; J2250; J2370; J2405; J2704; J3010

== ENCOUNTER 2019-12-18 14:51 | Outpatient (REF) | payer OTHER, SELFPAY ==
[2019-12-21 20:56] LABS: Patient Race White; SARS-CoV-2 RNA Undetected (Undetected); SARS-CoV-2 Specimen Source Nasal
== END 2019-12-18 15:11 ==
LOC: NCHCN 14:51
PROVIDERS: PCP Family Medicine; Visit Provider Nurse Practitioner Family
DX: Z20.828 Contact with and (suspected) exposure to other viral communicable diseases (principal)
CPT/HCPCS: U0003

== ENCOUNTER 2020-01-29 05:03 | Outpatient (CLI) | payer OTHER, SELFPAY ==
[2020-01-29 11:10] LABS: Anion Gap 9.9 mmol/L (3-11); BUN 38 mg/dL (7-18); CO2 25.1 mmol/L (21.0-32.0); CREATININE 1.55 mg/dL (0.55-1.02); Calcium 8.8 mg/dL (8.5-10.1); Chloride 105 mmol/L (98-107); Estimated GFR 34.59 (mL/min/1.73m2); Glucose 102 mg/dL (74-106); Magnesium 2.1 mg/dL (1.8-2.4); Potassium 5.1 mmol/L (3.5-5.1); Sodium 140 mmol/L (136-145)
[2020-01-29 11:40] LABS: Vitamin B12 494 pg/mL (193-986)
[2020-01-30 12:37] LABS: Albumin 58.6 % (55.8-66.1); Total Protein 6.9 g/dL (6.3-8.2)
[2020-02-03 07:26] LABS: Pyridoxal 5-Phosphate (PLP), P 12 mcg/L (5-50)
[2020-02-03 10:45] LABS: Thiamine (Vitamin B1), WB 142 nmol/L (70-180)
== END 2020-01-29 05:23 ==
PROVIDERS: Psychiatry & Neurology Neurology; PCP Family Medicine; Visit Provider Family Medicine
DX: I10 Essential (primary) hypertension (principal); E87.6 Hypokalemia; R20.8 Other disturbances of skin sensation; R20.2 Paresthesia of skin
CPT/HCPCS: 36415; 80048; 82607; 83735; 84165; 84207; 84425

== ENCOUNTER 2020-04-22 04:02 | Outpatient (CLI) | payer OTHER, SELFPAY ==
[2020-04-22 10:57] LABS: ALT 40 U/L (14-59); Anion Gap 10.9 mmol/L (3-11); BUN 22 mg/dL (7-18); CO2 26.1 mmol/L (21.0-32.0); CREATININE 1.6 mg/dL (0.55-1.02); Calcium 8.9 mg/dL (8.5-10.1); Calculated LDL 107 mg/dL (<100); Chloride 108 mmol/L (98-107); Cholesterol 190 mg/dL (<200); Estimated GFR 33.34 (mL/min/1.73m2); Glucose 112 mg/dL (74-106); HDL Cholesterol 47 mg/dL (40-60); Potassium 4.7 mmol/L (3.5-5.1); Sodium 145 mmol/L (136-145); Triglyceride 182 mg/dL (<150)
== END 2020-04-22 04:03 | disposition home or self-care (01) ==
LOC: LBO 04:02
PROVIDERS: PCP Family Medicine; Visit Provider Family Medicine
DX: I10 Essential (primary) hypertension (principal); E87.6 Hypokalemia; N18.30 Chronic kidney disease, stage 3 unspecified; E21.0 Primary hyperparathyroidism
CPT/HCPCS: 36415; 80048; 80061; 83735; 84460

== ENCOUNTER 2020-04-27 15:00 | Outpatient (CLI) | payer OTHER, SELFPAY ==
--- NOTE | 2020-04-27 14:45 | DI.RAD_ITS ---
CLINICAL HISTORY: PAIN TECHNIQUE: 2D digital imaging was performed. COMPARISON: No exams were available for comparison FINDINGS: BONES: No acute fracture is present. No bony destructive lesion is seen. JOINTS: The knee is normally aligned. Small joint effusion. SOFT TISSUE: Normal. IMPRESSION: Small joint effusion. No acute fracture or dislocation. DATA REPOSITORY: RADIATION DOSE DELIVERED:
== END 2020-04-27 15:01 | disposition home or self-care (01) ==
LOC: DIORS 15:00
PROVIDERS: PCP Family Medicine; Visit Provider Student in an Organized Health Care Education/Training Program
DX: M25.462 Effusion, left knee (principal)
CPT/HCPCS: 73562

== ENCOUNTER 2020-05-06 01:34 | Outpatient (CLI) | payer OTHER, SELFPAY ==
--- NOTE | 2020-05-06 10:00 | DI.MRI_ITS ---
EXAM: MR LOWER JOINT LT WO CLINICAL HISTORY: Acute traumatic med menisc, ACL injuries,INTERNAL DERANGEMENT,M23.92, TECHNIQUE: Multiplanar multisequence MRI of the knee was performed. COMPARISON: CR XR KNEE LT 3V AP,LAT,ANNEL from 04/27/2020 FINDINGS: EFFUSION: There is a moderate-sized joint effusion. There is no Christensen cyst in the popliteal fossa. There is subcutaneous edema anterior to the patellar ligament and lower patella. MARROW:There is bone contusion signal in the tibial plateau both medial lateral. No significant bone contusion signal in the femoral condyles. No abnormal signal in the fibular head and neck. There a re no significant osseous lesions. PATELLOFEMORAL COMPARTMENT: The quadriceps tendon is intact. The patellar ligament is intact. There is no significant thinning of the retropatellar cartilage. No evidence of fissure nor signific ant chondral defect. No osteochondral defect at this level.There is no intraosseous signal to sugges t recent patellar dislocation. Some increased signal is seen medially related to the medial patellar retinaculum-MCL junction. Mild tearing. No full-thickness MCL tear. CRUCIATE LIGAMENTS: There is a high-grade tear of the anterior cruciate ligament.The posterior crucia te ligament is intact. MEDIAL COMPARTMENT/MEDIAL MENISCUS: There are no tears of the medial meniscus evident.The meniscal ro ot is intact. No meniscal extrusion.. Mild degenerative changes in the medial compartment. No osteochondral defects but there are 2 2 tiny subarticular degenerative cysts in the posterior weight-bearing surface with some mild surrounding i ntraosseous edema in the posterior aspect of the subarticular medial femoral condyle. There is a sma ll marginal osteophyte on the outer aspect of the medial femoral condyle. MEDIAL COLLATERAL LIGAMENT: Mild partial tearing at junction with medial patellar retinaculum. No fu ll-thickness tear. LATERAL COMPARTMENT/LATERAL MENISCUS: There is no evidence of lateral meniscal tear.There are no alexsander dral defects, osteochondral defects, subarticular marrow edema, nor osteophytes evident. ILIOTIBIAL BAND: Intact LATERAL COLLATERAL LIGAMENT COMPLEX: Some soft tissue swelling is seen in this region. Mild increase d signal noted in the popliteus tendon adjacent to the femoral condyle but no high-grade tear. Mild increased signal noted within the upper fibular fibular collateral ligament but no full-thickness tea r.Biceps femorals tendon appears intact. IMPRESSION: 1. There is a high-grade tear of the anterior cruciate ligament. There is bone contusion signal in t he tibial plateau involving both medial and lateral aspect of the tibial plateau. Posterior cruciate ligament is intact 2. There are no meniscal tears. 3. Sprain signal noted in the medial collateral ligament and components of the lateral collateral lig ament complex but no high-grade tears.. 4. Moderate-sized joint effusion. No Christensen cyst. Small degenerative subarticular cyst and mild surrounding edema noted in the posterior subarticular a spect of medial femoral condyle. No osteochondral defect at this level. Small marginal osteophyte m edial compartment DATA REPOSITORY:
== END 2020-05-06 01:54 ==
PROVIDERS: PCP Family Medicine; Visit Provider Student in an Organized Health Care Education/Training Program
DX: S83.512A Sprain of anterior cruciate ligament of left knee, initial encounter (principal); M25.462 Effusion, left knee
CPT/HCPCS: 73721

== ENCOUNTER 2020-07-23 01:57 | Outpatient (CLI) | payer OTHER, SELFPAY ==
[2020-07-23 09:58] LABS: Hemoglobin A1C 6.1 % (<5.7)
[2020-07-23 10:18] LABS: Anion Gap 9.4 mmol/L (3-11); BUN 43 mg/dL (7-18); CO2 25.6 mmol/L (21.0-32.0); CREATININE 1.7 mg/dL (0.55-1.02); Calcium 9.1 mg/dL (8.5-10.1); Chloride 105 mmol/L (98-107); Estimated GFR 30.98 (mL/min/1.73m2); Glucose 109 mg/dL (74-106); Magnesium 2.1 mg/dL (1.8-2.4); Potassium 5.1 mmol/L (3.5-5.1); Sodium 140 mmol/L (136-145)
== END 2020-07-23 01:58 | disposition home or self-care (01) ==
LOC: LBO 01:57
PROVIDERS: PCP Family Medicine; Visit Provider Family Medicine
DX: N18.30 Chronic kidney disease, stage 3 unspecified (principal); I10 Essential (primary) hypertension; R73.03 Prediabetes; E87.6 Hypokalemia
CPT/HCPCS: 36415; 80048; 83036; 83735

== ENCOUNTER 2020-11-19 11:56 | Outpatient (REF) | payer OTHER, SELFPAY ==
[2020-11-20 12:11] LABS: COVID-19 RT-PCR UVMMC Result Negative (Negative)
== END 2020-11-19 11:57 | disposition home or self-care (01) ==
LOC: NCHCN 11:56
PROVIDERS: PCP Family Medicine; Visit Provider Family Medicine
DX: Z20.822 Contact with and (suspected) exposure to COVID-19 (principal); J06.9 Acute upper respiratory infection, unspecified
CPT/HCPCS: U0003

== ENCOUNTER 2020-12-22 03:12 | Outpatient (CLI) | payer OTHER, SELFPAY ==
[2020-12-22 12:50] LABS: Source Nasal/Nares
[2020-12-22 14:49] LABS: COVID-19 PCR Negative (Negative)
== END 2020-12-22 03:13 | disposition home or self-care (01) ==
LOC: LBO 03:13
PROVIDERS: PCP Family Medicine; Visit Provider Student in an Organized Health Care Education/Training Program
DX: Z20.822 Contact with and (suspected) exposure to COVID-19 (principal)
CPT/HCPCS: 87635

== ENCOUNTER 2020-12-24 06:03 | Day surgery (SDC) | payer OTHER, SELFPAY ==
[2020-12-24] VITALS (16 sets, daily range): BP systolic 102–160; BP diastolic 48–92; PULSE 64–79; RESP 11–23; TEMP 36.5–36.8; O2SAT 91–98; BMI 35.8
--- NOTE | 2020-12-24 06:59 | W.ANESPRE ---
General Info Date of Service Date Performed: 12/24/20 Height: 5 ft Weight: 83.2 kg Body Mass Index (BMI): 35.8 Surgical Procedure: Operation Date: 12/24/20 07:40 Proposed Procedures Side Surgeon p Knee ACL Reconstruction with allograft and any indicated mensical,chondral or synovial surgery Left Samm Nazario MD Meds Allergies and Home Medications Allergies Allergy/AdvReac Type Severity Reaction Status Date / Time sertraline [From Zoloft] Allergy Skin Rash Verified 12/24/20 06:23 Penicillins AdvReac Intermediate Thrush Verified 12/24/20 06:23 Home Medication Medication Instructions Recorded diltiazem HCl 240 mg PO HS tab-cap 01/06/13 fluoxetine [Prozac] 40 mg PO DAILY tab-cap 01/06/13 cholecalciferol (vitamin D3) 1,000 units PO DAILY 03/06/13 ferrous sulfate [Feosol] 1 tab PO DAILY 01/26/14 losartan 100 mg PO DAILY 10/24/17 gabapentin 300 mg PO BID 07/27/19 spironolactone 25 mg PO DAILY 07/27/19 ustekinumab 45 mg/0.5 mL 45 mg SC Q12W 08/05/19 subcutaneous solution naproxen 250 - 500 mg PO BID PRN #60 tab 12/12/19 anastrozole 1 mg tablet 1 mg PO DAILY 09/24/20 clobetasol 0.05 % topical cream 1 applic TOPICAL DAILY 09/24/20 rosuvastatin 10 mg tablet 10 mg PO DAILY 09/24/20 triamcinolone acetonide 0.5 % 1 applic TOPICAL TID 09/24/20 topical cream exemestane 25 mg PO DAILY 12/22/20 Current Visit Medications: Current Medications Generic Name Dose Route Start Last Admin Trade Name Freq PRN Reason Stop Dose Admin Ringer's Solution 1,000 mls @ 100 mls/hr 12/24/20 06:00 IV 01/22/21 23:59 INFUSION GEORGINA Cefazolin Sodium/Dextrose 2 gm in 50 mls @ 100 mls/hr 12/24/20 06:00 Ancef Duplex IVPB 12/24/20 16:00 PREOP GEORGINA IV Miscellaneous Supplies 1 each 12/24/20 06:00 Iv Access IV 01/22/21 23:59 DIRECTED GEORGINA Sodium Chloride 0 ml 12/24/20 06:00 Normal Saline Flush 10 Ml Syr IV 01/22/21 23:59 PRN PRN Sodium Chloride 0 ml 12/24/20 06:00 Normal Saline 10 Ml Vial IJ 01/22/21 23:59 DIRECTED PRN Sterile Water 0 ml 12/24/20 06:00 Water,Injection,Sterile 10 Ml Vial IJ 01/22/21 23:59 DIRECTED PRN PFSH Active Problems Active Problems: Problem Status Onset Code Hypokalemia E87.6 Leukocytosis D72.829 Seroma complicating a procedure [id number] Breast cancer C50.919 Hypertension I10 Depression F32.9 Psoriasis L40.9 History of hypothyroidism Z86.39 Hx of hypoparathyroidism Z86.39 Hypomagnesemia E83.42 Abnormal auditory perception 10/27/15 H93.299 Bilateral kidney stones 03/02/17 N20.0 Bursitis of shoulder 12/30/12 M75.50 History of hyperparathyroidism 03/02/17 Z86.39 Irregular bleeding 05/14/14 N92.6 Left ureteral stone 03/02/17 N20.1 Tinnitus 10/27/15 H93.19 Vulvar rash 12/11/13 R21 Left ACL tear ~03/2020 S83.512A Peripheral neuropathy G62.9 Chronic kidney disease N18.9 Prediabetes R73.03 Sciatica M54.30 JACQUELYN (obstructive sleep apnea) G47.33 Exophthalmos H05.20 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 Rotator cuff tear, right M75.101 Right lateral epicondylitis M77.11 Trigger ring finger of right hand M65.341 Biceps tendinitis of right shoulder M75.21 Arthritis of right acromioclavicular joint M19.011 Medical History Medical History Arthritis of right acromioclavicular joint s/p right shoulder arthroscopy DOS: 12/12/19 Attention deficit disorder (ADD) Biceps tendinitis of right shoulder s/p right shoulder arthroscopy DOS: 12/12/19 Depression Fibrocystic breast Herpes, genital History of left breast cancer Hyperaldosteronism Hyperlipidemia Hypertension Impaired fasting glucose Kidney stone Lymphedema Left arm Obesity Proteinuria Psoriasis Right lateral epicondylitis Right rotator cuff tendonitis Sleep apnea Trigger ring finger of right hand Surgical History Surgical History (Updated 12/24/20 @ 06:28 by Victoria Ch RN) Colonoscopy - MAC History of ankle surgery Left Hx of bilateral mastectomy Hx of shoulder surgery L arm clavicle and muscle Hx of shoulder surgery Left RIGHT THUMB ARTHROPLASTY (01/27/15) DR. KANG Rotator cuff tear, right s/p right shoulder arthroscopy with arthroscopic biceps tenodesis DOS: 12/12/19 Tobacco Smoking/Tobacco Use Status: Former Tobacco Use Alcohol Alcohol Intake: current Alcohol intake frequency: a few times a month Substance Use Substance use: Never Substance use type: does not use Vital Signs and Lab Results Vital Signs Most Recent Vital Signs in EMR: Most Recent Vital Signs Temp Pulse Resp BP Pulse Ox 36.6 C 64 18 122/81 97 12/24/20 06:17 12/24/20 06:17 12/24/20 06:17 12/24/20 06:17 12/24/20 06:17 Lab Results Blood Type / Crossmatch: No Data to Display Complete Blood Count: No Data to Display Complete Metabolic Panel: No Data to Display Liver Function Panel: No Data to Display Coagulation Panel: No Data to Display Cardiac Panel: No Data to Display Arterial Blood Gas: No Data to Display Venous Blood Gas: No Data to Display Pancreas Panel: No Data to Display Thyroid Panel: No Data to Display Infectious Disease: Coronavirus (COVID-19)(PCR) Negative (Negative) 12/22/20 10:42 12/22/20 Coronavirus 2019 Source Nasal/Nares 12/22/20 10:42 12/22/20 Blood Cultures: No Data to Display Toxicology Panel: No Data to Display Anesthesia Assessment and Plan Anesthesia History Personal History: PONV Family History: No Family History of Anesthesia Complications Exercise Tolerance Exercise Tolerance: Metabolic Equivalents>4 Pertinent Negatives Pertinent Negatives: No Symptoms of GERD, No Major Cardiovascular Symptoms or Complaints, No Major Pulmonary Symptoms or Complaints and No History of CVA/TIA Cardiac & Pulmonary Exam Cardiac Exam: Normal S1/S2 Heart Sounds Pulmonary Exam: Clear Bilateral Breath Sounds Airway Exam Known Difficult Airway: No Mallampati Class: 3 Mouth Opening: Normal (> 3cm) Thyromental Distance: Less than 3 cm Neck Range of Motion: Full ROM Neck Circumference: Normal Teeth Condition: Normal Dentition ASA Classification ASA Score: ASA 2 Emergency Case?: No NPO Status NPO Status: NPO Clears >2 hours, Solids >8 hours Anesthesia Plan Resuscitation Status: Full Code Anesthesia Technique: General Anesthesia Airway Planned: Endotracheal Tube Monitors Used: Standard Monitors Preoperative Comments:: Hx of difficult IV start
[2020-12-24] MEDS: Lactated Ringers 1,000 ML 100 ML IV (07:40)
--- NOTE | 2020-12-24 07:55 | W.ANESNERVE ---
Nerve Block Single Injection Procedure Date and Time Date Performed: 12/24/20 Procedure Start: 07:29 Location Where Procedure Performed Procedure Location: Day Surgery Unit Reason Performed: Postoperative Analgesia Requesting Provider: Samm Nazario Timeout Performed Timeout Performed: Yes Monitoring Used ECG, Blood Pressure and SpO2 Sterility Sterility: Hand Hygiene, Surgical Cap, Surgical Mask, Sterile Gloves and Chlorhexidine Sedation Given During Procedure Sedation Given (Indicate Dose Given): Versed IV Dose:: 2 mg Patient Mental Status Patient Mental Status: Sedate with meaningful communication Nerve Block 1st Nerve Block: Laterality: Left Block Type: Femoral Needle / Catheter Used: 100mm SonoPlex II Local Anesthetic Bolus (Indicate Dose Given): Lidocaine used for local infiltration of skin, Injected in 3-5ml increments after negative blood aspiration, Bupivacaine 0.5% Dose:: 15 ml and Exparel Dose:: 10 ml Additives (Indicate Dose Given): None Ultrasound: Sterile probe cover and gel used Ultrasound Image Saved?: Yes Nerve Stimulator: Not Used Paresthesia: None Procedure Tolerated: No Complications and Patient tolerated well Procedure Outcome: Successful Performed By: Fide
[2020-12-24] MEDS: ceFAZolin 2 GM/50 ML BAG IVPB (08:33)
[2020-12-24] MEDS: EPINEPHrine 30 MG/30 ML VIAL (11:11)
--- NOTE | 2020-12-24 11:45 | W.PM.DSUDISC ---
Discharge Plan Disposition Patient Disposition: HOME Condition: Stable Discharge Details Reason For Visit: ACL RUPTURE Attending Provider: Samm Nazario Primary Care Provider: Trinh Coates Home Meds and New Rx's Prescriptions: New naproxen 250 mg tablet 250 - 500 mg PO BID PRN (Reason: Moderate pain or swelling) Qty: 60 RF: 0 aspirin 81 mg tablet,delayed release (DR/EC) 81 mg PO BID 30 Days Qty: 60 RF: 0 oxycodone 5 mg tablet 5 - 10 mg PO Q4H PRN (Reason: moderate to severe pain) Qty: 22 RF: 0 Continued Stelara 45 mg/0.5 mL solution 45 mg SC Q12W RF: 0 fluoxetine [Prozac] 40 MG capsule 40 mg PO DAILY RF: 0 diltiazem HCl 240 MG capsule,extended release 24hr 240 mg PO HS RF: 0 rosuvastatin [Crestor] 10 mg tablet 10 mg PO DAILY RF: 0 anastrozole 1 mg tablet 1 mg PO DAILY RF: 0 clobetasol 0.05 % cream 1 applic topical DAILY RF: 0 triamcinolone acetonide 0.5 % cream 1 applic topical TID RF: 0 cholecalciferol (vitamin D3) 1,000 UNITS tablet 1,000 units PO DAILY RF: 0 ferrous sulfate [Feosol] 325 MG tablet 1 tab PO DAILY RF: 0 losartan 25 mg Tablet 100 mg PO DAILY RF: 0 spironolactone 25 mg tablet 25 mg PO DAILY RF: 0 gabapentin 300 mg capsule 300 mg PO BID RF: 0 naproxen 250 mg tablet 250 - 500 mg PO BID PRN (Reason: Moderate pain or swelling) Qty: 60 RF: 0 exemestane 25 mg tablet 25 mg PO DAILY RF: 0 Discharge Instructions Additional Instructions: Surgery: Left knee arthroscopy with allograft ACL reconstruction and lateral meniscal root repair Activity: Protected weightbearing with crutches for 6 weeks. No flexion past 90 degrees for 6 weeks. No weighted deep flexion for 10 weeks. Restore full extension as soon as possible. Isometrics/spin/bike okay after 8 weeks. A physical therapy prescription will be sent electronically to start in 2 to 3 weeks. Prescriptions: Aspirin 81 mg take 1 twice daily to prevent a blood clot for 30 days Naproxen 250 mg take 1-2 every 12 hours with a meal as needed for moderate pain Oxycodone 5 mg take 1-2 every 4-6 hours as needed for severe pain You may use [id number] Tylenol (acetaminophen) as needed for mild pain. These pain medications may be taken all at once or in different combinations as needed. Also, recommend Colace (docusate) as a stool softener as surgery and pain medicine cause constipation. Dressings: Leave dressing in place for 5 days. Use Velcro brace as needed for support and comfort. Loosen to accommodate swelling. May remove while resting and at night. May then remove all dressings and leave open to air or cover incisions with Band-Aids. May shower after 7 days. Follow-up: 10-[address] Nazario. Please call to add time to this appointment or make a separate appointment to reevaluate your right shoulder. Let us know right away if you develop any redness, drainage, fevers, chest pain, or trouble breathing. Do not drink alcohol or drive for at least 24 hours after anesthesia. Please call the office during business hours with any questions or concerns. Referrals: Samm Nazario MD [ [facility] STAFF PHYSICIAN] - Discharge Orders Discharge Orders: Discharge Order (Routine); Ordered 12/24/20 Ordered By: Samm Nazario DS: Diagnosis Discharge Diagnosis (1) Left ACL tear: Status: Acute
[2020-12-24] MEDS: fentaNYL 100 MCG/2 ML VIAL IVP ×2 (11:46→12:05)
[2020-12-24] MEDS: ACETAMINOPHEN 1,000 MG/100 ML BTL 400 MG IVPB (11:52)
[2020-12-24] MEDS: HYDROmorphone 2 MG/ML VIAL IVP ×2 (12:32→12:44)
[2020-12-24] MEDS: oxyCODONE 5 MG TAB PO (12:55)
--- NOTE | 2020-12-24 13:30 | ROE_ITS ---
Date of service: 12/24/20 Time of Service: 08:00 Operative Note Operative Note DATE OF PROCEDURE: 12/24/20 PRE-OP DIAGNOSIS: Left ACL rupture POST-OP DIAGNOSIS: other Left knee 1. ACL rupture 2. Lateral meniscal root tear PROCEDURE: Left knee 1. Allograft ACL reconstruction, CPT #45016: All inside quadrupled semitendinosis 2. Lateral meniscal root repair, CPT #87124 SURGEON: Samm Nazario TAPPER HELPER: Viridiana Tate ANESTHESIA TYPE: Local By Surgeon, General LMA/ETT and Primary Nerve Block Refer to Anesthesia Record ESTIMATED BLOOD LOSS: 15 TOURNIQUET TIME: 0 COMPLICATIONS: None Patient was transported to: PACU Patient's condition: stable Implants: Arthrex ACL TightRope II RT and ABS with 14mm round cortical button; 4.75mm SwiveLock with 2x 0-FiberLink for root repair Indications: Please see complete medical record for details. Findings: Exam under anesthesia confirmed gross laxity without endpoint Marshall testing as well as positive pivot shift Arthroscopic exam confirmed complete ACL rupture mid substance. There was an additional new complete lateral meniscal root tear. Articular cartilage is intact throughout. Medial meniscus and PCL were intact. Procedure Description: In the operating room, general anesthesia was induced. The patient was positioned supine on the operating room table. All bony prominences were well-padded. Preoperative antibiotics were administered. The left knee was prepped and draped in the usual sterile fashion. The correct patient, procedure, and side of the procedure were all verified prior to incis ion. On the back table, the allograft was prepared. A semitendinosis measuring 270 mm and doubled over 8 mm was prepared into a quadrupled graft link fashion with a tight rope to RT on the femoral side and tight rope to ABS on the tibial side. The free limbs were secured together using a suture tape FiberLink and passed through the crotch on the MBS side and tied over the tendon here before being brought over the graft prep and secured with the AVS sutures as well. A suture tape was then used to secure in a buried fashion the 4 strands of the graft with 2 pairs total four 360 degree security sutures placed on the tibial and and 2 pairs placed on the femoral side. Sutures were carefully spaced so as not to be more than 20 mm from the ends of the graft. The graft was measured prior to tension about 68 mm. It was about 10.5 mm in diameter. The 10 mm graft was used to compress the graft into the appropriate size and tension applied on the back table. The graft was covered in a vancomycin wet lap while the knee was prepared. Exam under anesthesia was performed. 20 cc of 0.25% bupivacaine containing epinephrine was infiltrated about the planned anteromedial, anterolateral, pre tibial, and lateral femoral knee portals and incisions. The standard high and tight anterolateral anteromedial portals were established and a complete diagnostic arthroscopy was performed with relevant findings detailed above. In the intercondylar area, the mechanical shaver was used to remove the remnant ACL leaving but no footprint on the femur and tibia to localize tunnels. A small notchplasty was performed to optimize visualization as well as allow better access to the lateral meniscal root. The lateral meniscal root had been probed and unfortunately confirmed a complete tear. Given the concomitant ACL surgery as well as intact articular cartilage, decision was made to proceed with root repair. The 12 x 3 mm passport was inserted medially and an 8 x 3 mm passport laterally. The adjustable root guide was brought in, hooked posteriorly and adjusted so the drill what and 5 mm off the posterior margin at the location of the root tear. The guide was positioned centrally and distally on the anteromedial tibia to avoid interfering with ACL drilling. A small pretibial longitudinal incision was made and the drill guide inserted down to bone. The 6 mm flip cutter was then drilled carefully to the marked location. The drill guide handle removed. The flip cutter flipped to the 6 mm and in retrograde drilling down about 5 mm. The blade retracted flip cutter removed and fiber stick inserted through the tunnel retrieved out the anterior medial portal. The knee scorpion was then used to pass a 0 fiber link through the more medial aspect of the tear in cinch mode. With traction on the stitch an additional 0 fiber link was placed through the body of the meniscus slightly more laterally also in cinch mode. Both repair stitches were shuttled through the root repair tunnel. Tension confirmed appropriate meniscus reduction and repair suture tissue strength. The pretibial wound was cleared of soft tissue, and a 1 cm bone bridge distally used to predrill, tap, and then secure both repair stitches with a 4.75 mm bio composite swivel lock with visualization confirming appropriate tension on the lateral meniscal root repair. Care was taken to ensure the SwiveLock anchor was completely flush may be just counter flush with the anterior tibia bone to avoid hardware prominence. Repair was probed and found to be stable. There is no additional tear or need for posterior horn meniscal capsular repair stitches. Attention was turned back to the notch. The 6 and 9 guide was used to target the appropriate location for anatomic placement of the ACL origin. A small incision was made at the lateral thigh for placement of the drill guide down to bone. The flip cutter was used targeting the appropriate location. The drill guide malleted 7 mm appropriately into the far cortex. The remainder of the handling guide was removed. The flip cutter was deployed to 10 mm and then retrograde reaming done for socket of 30 mm depth. A fiber stick was then used to secure a shuttle suture and secured laterally. The tibial guide was then used in some remnant ACL at the tibial insertion was removed centrally to allow best placement for the guide. A separate pretibial incision was made in the drill guide placed on bone. The flip cutter was then used to drill to the tibia. There was concern for short tunnel length may be 25 mm only allowing a 20 mm socket, so the angle the guide was adjusted from 50 degrees to 55 degrees and an additional pretibial incision made more centrally. When the drill guide was placed on bone the measured depth was still only about 25 mm. Instead, the pretibial incision for the repair was extended slightly proximally. The angle increased to 60 degrees. The drill guide centered at the insertion in the knee and down to bone taking care to ensure at least a 1 cm bridge between this ACL tunnel and the prior repair tunnel. There is now a more appropriate tunnel length 30-35 mm. The flip cutter was drilled into the appropriate viridiana. The drill guide malleted 7 mm into the cortex the remainder of the guide and handle removed. The flip cutter deployed to 10 mm and then in retrograde fashion a socket of 25 mm created. A fiber stick was used to place a passing suture here and secured anterior medially. The mechanical shaver was used to remove bone drilling debriding thoroughly as well as carefully chamfer and remove soft tissue from the edges of the sockets to allow for best graft passage. The prepared graft was then brought over to the knee. The femoral RT sutures were then shuttled through the anteromedial portal out the lateral thigh. The tight rope device had been lengthened to allow for camera placement in the anteromedial portal as well once the button was passed into the femoral tunnel. Under direct visualization the button was advanced to the end of the socket and then through the drill hole and carefully flipped on the far cortex. Back pressure on the graft confirmed appropriate cortical placement as well as toggling the past and flipping sutures. The camera was brought back to the anterior lateral portal and the graft advanced into the knee through the anteromedial passport and then advanced 20 mm into the femoral socket. The ABS and fiber loop sutures were then shuttled through the anterior tunnel. The graft was assisted into the knee and into the tibial socket with the probe. The graft was dunked about 15 mm with manual pressure on the ABS loop. A larger 14 mm round button was selected given the multiple drill holes on the anteromedial tibial cortex and carefully loaded with the ABS sutures as well as the fiber loop stitches. The sutures were tightened bringing the button down to the anterior tibial cortex. At least 20 mm was advanced into the tibia. There is no longer graft prep suture visualized in the knee. Additional tightening was done on both the femoral and tibial sides. The knee was then cycled 22 times an additional tightening done on both the femoral and tibial sides. The graft tension and trajectory was confirmed and appropriate. There was no impingement or notching in full extension. There is no additional tightening on the sutures. Marshall exam was stable. Passing sutures removed. The fiber loop sutures were tied over the ABS button. Both the AVS and RT sutures were tied and cut. The knee was copiously irrigated and the mechanical shaver used to ensure no bone tunnel or debris remained in the knee. All portals and incisions were copiously irrigated. 3-0 Monocryl was used to close the portals and small incisions in a buried interrupted fashion. Mastisol Steri-Strips Xeroform and 4 x 4 gauze applied over the incisions. The knee was wrapped in sterile soft roll and the extremity gently in an Joselito bandage. The soft knee immobilizer placed. The patient awoke from anesthesia without complication and was transferred to the recovery room in a stable condition.
--- NOTE | 2020-12-24 15:27 | W.ANESPOSTOP ---
Postoperative Evaluation Date, Time and Location Date Performed: 12/24/20 Time Performed: 15:27 Patient Location: Day Surgery Unit Vital Signs Most Recent Imported Vital Signs: Most Recent Vital Signs Temp Pulse Resp BP Pulse Ox 36.5 C 66 14 129/92 H 94 12/24/20 14:31 12/24/20 14:31 12/24/20 14:31 12/24/20 14:31 12/24/20 14:31 Pain Score Most Recent Pain Score: Most Recent Pain Score Pain Level 9 12/24/20 14:02 Assessment Mental Status: Awake (Alert & Oriented to Patient Baseline) Airway and Respiratory Function: Patent airway with normal (patient baseline) respiratory exam Cardiovascular Function: Hemodynamically Stable Hydration Status: Adequately Hydrated Nausea & Vomiting: No Nausea or Vomiting Pain: Pain is tolerable per patient (Sciatic pain much better with repositioning. ) Peripheral Nerve Block: Regional nerve block not resolved at time of post operative discharge Teaching Patient Teaching: Discussed Safe Use of Pain Medication Given Likely or Known JACQUELYN
== END 2020-12-24 16:53 | disposition home or self-care (01) ==
PROVIDERS: PCP Family Medicine; Visit Provider Student in an Organized Health Care Education/Training Program
PROC: (CPT 29888; principal; 2020-12-24 07:30)
DX: S83.512A Sprain of anterior cruciate ligament of left knee, initial encounter (principal); S83.282A Other tear of lateral meniscus, current injury, left knee, initial encounter; X58.XXXA Exposure to other specified factors, initial encounter; I10 Essential (primary) hypertension; E78.5 Hyperlipidemia, unspecified
CPT/HCPCS: 29888; 29882; J0131; J0690; J1100; J1885; J2001; J2250; J2405; J2704; J3010

== ENCOUNTER 2021-01-28 01:08 | Outpatient (CLI) | payer OTHER, SELFPAY ==
[2021-01-28 11:45] LABS: Anion Gap 9.6 mmol/L (3-11); BUN 32 mg/dL (7-18); CO2 27.4 mmol/L (21.0-32.0); CREATININE 1.4 mg/dL (0.55-1.02); Calcium 9.3 mg/dL (8.5-10.1); Chloride 106 mmol/L (98-107); Estimated GFR 38.76 (mL/min/1.73m2); Glucose 103 mg/dL (74-106); Magnesium 2.1 mg/dL (1.8-2.4); Potassium 4.1 mmol/L (3.5-5.1); Sodium 143 mmol/L (136-145)
[2021-01-31 11:08] LABS: Hemoglobin A1C 6.1 % (<5.7)
[2021-02-01 09:55] LABS: Hepatitis C Ab w Rflx HCV PCR Negative (Negative)
== END 2021-01-28 01:09 | disposition home or self-care (01) ==
LOC: LBO 01:08
PROVIDERS: PCP Family Medicine; Visit Provider Family Medicine
DX: R73.03 Prediabetes (principal); N18.30 Chronic kidney disease, stage 3 unspecified; Z11.59 Encounter for screening for other viral diseases; Z00.00 Encounter for general adult medical examination without abnormal findings
CPT/HCPCS: 36415; 80048; 86803; 87389; 83036; 83735

== ENCOUNTER 2021-03-11 01:40 | Outpatient (CLI) | payer OTHER, SELFPAY ==
[2021-03-11 11:19] LABS: Source Nasal/Nares
[2021-03-11 14:01] LABS: COVID-19 PCR Negative (Negative)
== END 2021-03-11 01:41 | disposition home or self-care (01) ==
LOC: LBO 01:41
PROVIDERS: PCP Family Medicine; Visit Provider Surgery
DX: Z20.822 Contact with and (suspected) exposure to COVID-19 (principal)
CPT/HCPCS: 87635

== ENCOUNTER 2021-03-14 08:29 | Day surgery (SDC) | payer OTHER, SELFPAY ==
--- NOTE | 2021-03-14 06:48 | COLE_ITS ---
Colonoscopy Report Date of procedure: 03/14/21 Pre-op diagnosis general: Colon cancer Screening and Hx of polyps Procedure: Colonoscopy Surgeon: Daniella Mota Anesthesia Type: General:No Airway Complications: None Disposition: same day Indications: The patient is here for Colonoscopy pre-op. Her last screening was in 2010 and she had hyperplastic polyps. She has a family history of colon cancer in her Maternal grandfather and maternal uncle. She has no family history of colon cancer. She has not had any bowel habit changes. -Discussed colonoscopy bowel prep as well as the procedure. Discussed possible complications of the procedure to include bleeding, pain, perforation, missed small lesion/polyp, sore throat, aspiration and adverse reaction to the medications. Questions were answered to patient?s satisfaction. No guarantees were implied or given. Educational handouts regarding hemorrhoids were provided. Discussed the use of a daily fiber supplement such as psyllium husk to promote soft BMs. Also advocated for her to increase her daily water intake. Will provide her with a prescription for topical steroid cream to help reduce inflammation when irritated. Also discussed and encouraged the use of Sitz baths. She would like Dr. Mota to evaluate her external hemorrhoids and she wishes to discuss the possibility of having a hemorrhoidectomy. Prep: Miralax/Dulcolax Procedure Start Time: 10:03 Procedure End Time: 10:37 Retraction Time: 22 minutes Findings: multiple small polyps Diverticulosis Procedure Description: After informed consent was obtained the patient was taken to the procedure room and placed in a left decubitous position. Monitors were applied and a time out was done. The patients name, date of , procedure, allergies to medications and metal in their body was reviewed. The patient was then sedated. Once sedated and comfortable a rectal exam was done. External exam showed some mucosal prolapse. Internal exam revealed a normal sphincter tone and no palpable masses. The scope was then introduced and retro-flexed. Grade 1 internal hemorrhoids were noted on retroflexion. No polyps or masses were identified on retro- flexion. The scope was then advanced to the cecum without difficulty. The ileocecal vlave and appendiceal orifice were identified. The prep was adequate. The scope was then slowly retracted over 22 minutes back into the rectum. Polyps were removed with cold forceps in the transverse colon x2, descending colon x2, sigmoid colon. There was mild boyd- diverticulosis noted. The scope was removed and the patient was woken up and taken back to Same day surgery in stable condition. The patient tolerated the procedure well and there were no immediate complications. Follow up: The patient should follow up in 3-5 years unless they develop changes in bowel habits or other new gastrointestinal complaints.
--- NOTE | 2021-03-14 06:49 | W.PM.DSUDISC ---
Discharge Plan Disposition Patient Disposition: HOME Condition: Good Discharge Details Reason For Visit: Colonoscopy Attending Provider: Daniella Mota Primary Care Provider: Trinh Coates Home Meds and New Rx's Prescriptions: Continued Stelara 45 mg/0.5 mL solution 45 mg SC Q12W RF: 0 fluoxetine [Prozac] 40 MG capsule 40 mg PO DAILY RF: 0 diltiazem HCl 240 MG capsule,extended release 24hr 240 mg PO HS RF: 0 rosuvastatin [Crestor] 10 mg tablet 10 mg PO DAILY RF: 0 clobetasol 0.05 % cream 1 applic topical DAILY RF: 0 cholecalciferol (vitamin D3) 1,000 UNITS tablet 1,000 units PO DAILY RF: 0 ferrous sulfate [Feosol] 325 MG tablet 1 tab PO DAILY RF: 0 losartan 25 mg Tablet 100 mg PO DAILY RF: 0 spironolactone 25 mg tablet 25 mg PO DAILY RF: 0 gabapentin 300 mg capsule 300 mg PO BID RF: 0 exemestane 25 mg tablet 25 mg PO DAILY RF: 0 Discontinued polyethylene glycol 3350 17 gram/dose powder 238 g PO ONCE Qty: 238 RF: 0 bisacodyl [Dulcolax (bisacodyl)] 5 mg tablet,delayed release (DR/EC) 5 mg PO ONCE Qty: 4 RF: 0 Discharge Instructions Instructions: Colorectal Polyps (DC), Diverticulosis (DC) Additional Instructions: Findings: 5 small polyps mild boyd-diverticulosis Follow up: 3-5 years Please call if you develop: fevers >101.5 Nausea or Vomiting Abdominal pain that is not transient Rectal bleeding that is more then a tbsp A hard abdomen and inability to pass gas DAY SURGERY UNIT POST ENDOSCOPY INSTRUCTIONS Instructions for everyone who is given Anesthesia: For your safety, please do the following for the next 24 Hours: a. Do not drive or operate dangerous equipment b. Do not drink alcohol beverages or use any recreational drugs for the first 24 hours or while taking pain medications. The medications in your body may have a reaction that can be dangerous. c. Do not make any important decisions or sign any important papers 1. Generally there are no restrictions on your activity after a day or so has gone by, but you may feel a bit fatigued for a few days. 2. After you arrive home you may have a light meal and return to a normal diet as you can tolerate it without feeling sick to your stomach. 3. After surgery, you may feel pain or discomfort. This should be only transient, but if it persists please contact your doctor. 4. If there are any questions regarding the findings of your procedure, please feel free to contact your doctor. 6. If you are unable to contact your doctor with a problem, contact the hospital at [phone]. 7. Continue all your regular medications unless directed otherwise. I understand the above instructions and have no questions. Signature of Patient or Responsible Adult Escort Date/Time Name of Responsible Adult Escort Signature of Nurse Date/Time Activity:: Activity as Tolerated Diet:: high fiber diet Discharge Orders Discharge Orders: Discharge Order (Routine); Ordered 03/14/21 Ordered By: Daniella Mota
[2021-03-14 08:44] VITALS: BP 123/80; PULSE 68; RESP 18; TEMP 36.2; O2SAT 99
--- NOTE | 2021-03-14 08:46 | W.ANESPRE ---
General Info Date of Service Date Performed: 03/14/21 Height: 5 ft Weight: 86.183 kg Body Mass Index (BMI): 37.0 Surgical Procedure: Operation Date: 03/14/21 10:05 Proposed Procedures Side Surgeon p Colonoscopy Daniella Mota MD Meds Allergies and Home Medications Allergies Allergy/AdvReac Type Severity Reaction Status Date / Time sertraline [From Zoloft] Allergy Skin Rash Verified 03/14/21 08:49 Penicillins AdvReac Intermediate Thrush Verified 03/14/21 08:49 Home Medication Medication Instructions Recorded diltiazem HCl 240 mg PO HS tab-cap 01/06/13 fluoxetine [Prozac] 40 mg PO DAILY tab-cap 01/06/13 cholecalciferol (vitamin D3) 1,000 units PO DAILY 03/06/13 ferrous sulfate [Feosol] 1 tab PO DAILY 01/26/14 losartan 100 mg PO DAILY 10/24/17 gabapentin 300 mg PO BID 07/27/19 spironolactone 25 mg PO DAILY 07/27/19 ustekinumab 45 mg/0.5 mL 45 mg SC Q12W 08/05/19 subcutaneous solution clobetasol 0.05 % topical cream 1 applic TOPICAL DAILY 09/24/20 rosuvastatin 10 mg tablet 10 mg PO DAILY 09/24/20 exemestane 25 mg PO DAILY 12/22/20 bisacodyl 5 mg tablet,delayed 5 mg PO ONCE #4 tab 03/04/21 release polyethylene glycol 3350 17 238 g PO ONCE #238 g 03/04/21 gram/dose oral powder Current Visit Medications: Current Medications Generic Name Dose Route Start Last Admin Trade Name Freq PRN Reason Stop Dose Admin Hyoscyamine Sulfate 0.125 mg 03/14/21 06:49 Hyoscyamine 0.125 Mg Sl/Oral/Chew SL DIRECTED PRN Ringer's Solution 1,000 mls @ 80 mls/hr 03/14/21 06:00 IV 04/10/21 23:59 INFUSION GEORGINA IV Miscellaneous Supplies 1 each 03/14/21 06:00 Iv Access IV 04/10/21 23:59 DIRECTED GEORGINA Ondansetron HCl 4 mg 03/14/21 06:49 Ondansetron 4 Mg/2 Ml Vial IVP Q4H PRN PRN Nausea / Vomiting Sodium Chloride 0 ml 03/14/21 06:00 Normal Saline Flush 10 Ml Syr IV 04/10/21 23:59 PRN PRN Sodium Chloride 0 ml 03/14/21 06:00 Normal Saline 10 Ml Vial IJ 04/10/21 23:59 DIRECTED PRN Sterile Water 0 ml 03/14/21 06:00 Water,Injection,Sterile 10 Ml Vial IJ 04/10/21 23:59 DIRECTED PRN PFSH Active Problems Active Problems: Problem Status Onset Code JACQUELYN (obstructive sleep apnea) G47.33 Screening for colon cancer Z12.11 Medical History Medical History Abnormal auditory perception (10/27/15) Acute lateral meniscal injury of left knee Arthritis of right acromioclavicular joint s/p right shoulder arthroscopy DOS: 12/12/19 Attention deficit disorder (ADD) Biceps tendinitis of right shoulder s/p right shoulder arthroscopy DOS: 12/12/19 Bilateral kidney stones (03/02/17) Breast cancer Bursitis of shoulder (12/30/12) Chronic kidney disease Depression Exophthalmos Fibrocystic breast Herpes, genital History of hyperparathyroidism (03/02/17) History of hypothyroidism History of left breast cancer Hx of hypoparathyroidism Hyperaldosteronism Hyperlipidemia Hypertension Hypokalemia Hypomagnesemia Impaired fasting glucose Irregular bleeding (05/14/14) currently treated w/ POPs, to amenorhea Kidney stone Left ACL tear (~03/2020) Left ureteral stone (03/02/17) Leukocytosis Lichen simplex chronicus Lymphedema Left arm Obesity Peripheral neuropathy Prediabetes Proteinuria Psoriasis Psoriasis Right lateral epicondylitis Right rotator cuff tendonitis Sciatica Seroma complicating a procedure Tinnitus (10/27/15) Trigger ring finger of right hand Vulvar rash (12/11/13) lichen simplex chronicus, w/ features of psoriasis which pt has on hands and elsewhere. treated w/ steroids Surgical History Surgical History Colonoscopy - MAC History of ankle surgery Left Hx of bilateral mastectomy Hx of knee surgery Hx of shoulder surgery L arm clavicle and muscle Hx of shoulder surgery Left RIGHT THUMB ARTHROPLASTY (01/27/15) DR. KANG Rotator cuff tear, right s/p right shoulder arthroscopy with arthroscopic biceps tenodesis DOS: 12/12/19 Tobacco Smoking/Tobacco Use Status: Former Tobacco Use Alcohol Alcohol Intake: current Alcohol intake frequency: a few times a week Substance Use Substance use: Never Substance use type: does not use Vital Signs and Lab Results Lab Results Blood Type / Crossmatch: No Data to Display Complete Blood Count: No Data to Display Complete Metabolic Panel: No Data to Display Liver Function Panel: No Data to Display Coagulation Panel: No Data to Display Cardiac Panel: No Data to Display Arterial Blood Gas: No Data to Display Venous Blood Gas: No Data to Display Pancreas Panel: No Data to Display Thyroid Panel: No Data to Display Infectious Disease: Coronavirus (COVID-19)(PCR) Negative (Negative) 03/11/21 08:33 03/11/21 Coronavirus 2019 Source Nasal/Nares 03/11/21 08:33 03/11/21 Blood Cultures: No Data to Display Toxicology Panel: No Data to Display Imaging and Studies Imaging and Studies Study information below may be from another EMR and interpreted by another provider. Please see original notes in EMR for more complete details. Echocardiogram Summary: 06/01/2017: [facility] [place]: EF 70%, Mild LVH, Trace MR, Other valves normal. Anesthesia Assessment and Plan Anesthesia History Personal History: PONV Family History: No Family History of Anesthesia Complications Exercise Tolerance Exercise Tolerance: Metabolic Equivalents>4 Pertinent Negatives Pertinent Negatives: No Symptoms of GERD, No Major Cardiovascular Symptoms or Complaints and No Major Pulmonary Symptoms or Complaints Cardiac & Pulmonary Exam Cardiac Exam: Normal S1/S2 Heart Sounds Pulmonary Exam: Clear Bilateral Breath Sounds Implantable Cardiac Device Does patient have a Pacemaker or an ICD?: No Airway Exam Known Difficult Airway: No Mallampati Class: 2 Mouth Opening: Normal (> 3cm) Thyromental Distance: Less than 3 cm Neck Range of Motion: Full ROM Neck Circumference: Normal Teeth Condition: Normal Dentition ASA Classification ASA Score: ASA 2 Emergency Case?: No NPO Status NPO Status: NPO Clears >2 hours, Solids >8 hours Anesthesia Plan Resuscitation Status: Full Code Anesthesia Technique: General Anesthesia Airway Planned: Natural Airway Monitors Used: Standard Monitors
[2021-03-14 09:01] VITALS: BMI 37.0
[2021-03-14] MEDS: Lactated Ringers 1,000 ML 80 ML IV (09:10)
--- NOTE | 2021-03-14 10:21 | BOWEL_PTH ---
PATIENT: Wendy Sandoval LOC: [facility] U#:[id number] AGE/SX: 55/F ROOM: RE03/14/[address]: Daniella Mota MD : [id number] BED: DIS: 03/14/2021 SPEC #: [id number] RECD: 03/14/21 12:29 STATUS: SPIKE REPrincess #: [id number] SNOW: 03/14/21 10:[address]: Daniella Mota DEPT: Surgical Specimen RECD BY: Micaela Iverson ENTERED: 03/14/21 12:31 SP TYPE: Bowel OTHR DR: Trinh Coates Tissues: 1 - BIOPSY BOWEL 2 - BIOPSY BOWEL 3 - BIOPSY BOWEL 4 - BIOPSY BOWEL Procedures: GROSS AND MICRO LEVEL 4 Comments: [id number]
[2021-03-14 10:46] VITALS: BP 112/65; PULSE 61; RESP 20; TEMP 36.1; O2SAT 94
[2021-03-14] MEDS: Hyoscyamine 0.125 MG SL/ORAL/CHEW SL (11:09)
[2021-03-14 11:19] VITALS: BP 127/75; PULSE 59; RESP 18; TEMP 36.5; O2SAT 96
--- NOTE | 2021-03-14 11:43 | W.ANESPOSTOP ---
Postoperative Evaluation Date, Time and Location Date Performed: 03/14/21 Time Performed: 11:23 Patient Location: Day Surgery Unit Vital Signs Most Recent Imported Vital Signs: Most Recent Vital Signs Temp Pulse Resp BP Pulse Ox 36.5 C 59 L 18 127/75 96 03/14/21 11:19 03/14/21 11:19 03/14/21 11:19 03/14/21 11:19 03/14/21 11:19 Pain Score Most Recent Pain Score: Most Recent Pain Score Pain Level 5 03/14/21 11:19 Assessment Mental Status: Awake (Alert & Oriented to Patient Baseline) Airway and Respiratory Function: Patent airway with normal (patient baseline) respiratory exam Cardiovascular Function: Hemodynamically Stable Hydration Status: Adequately Hydrated Nausea & Vomiting: No Nausea or Vomiting Pain: Pt. Denies Any Pain Peripheral Nerve Block: Patient did not receive a nerve block
== END 2021-03-14 11:56 | disposition home or self-care (01) ==
LOC: SUR 08:29
PROVIDERS: PCP Family Medicine; Visit Provider Surgery
PROC: 0DJD8ZZ Inspection of Lower Intestinal Tract, Via Natural or Artificial Opening Endoscopic (ICD-10-PCS; CPT 45378; principal; 2021-03-14 10:00)
DX: Z12.11 Encounter for screening for malignant neoplasm of colon (principal); D12.3 Benign neoplasm of transverse colon; D12.5 Benign neoplasm of sigmoid colon; D21.4 Benign neoplasm of connective and other soft tissue of abdomen; Z86.010 Personal history of colon polyps; K64.0 First degree hemorrhoids; K57.30 Diverticulosis of large intestine without perforation or abscess without bleeding
CPT/HCPCS: 45380; 88305; J3490

== ENCOUNTER 2021-08-01 13:36 | Outpatient (REF) | payer OTHER, SELFPAY ==
[2021-08-01 14:39] LABS: HCT 39.2 % (36.0-46.0); HGB 12.9 g/dL (11.2-15.7); MCH 31.2 pg (27.0-33.0); MCHC 32.9 % (32.0-36.0); MCV 95 fL (80-95); MPV 10.3 fL (8.0-11.0); Platelet Count 315 10^3/uL (130-400); RBC 4.13 10^6/uL (3.93-5.22); RDW 13.3 % (11.7-14.6); RDW-SD 46.7 fL; WBC 8.59 10^3/uL (4.4-10.8)
[2021-08-01 16:13] LABS: Calculated LDL 86 mg/dL (<100); Cholesterol 162 mg/dL (<200); HDL Cholesterol 61 mg/dL (40-60); Triglyceride 75 mg/dL (<150)
[2021-08-01 16:34] LABS: Vitamin D 25 Total 60.6 ng/mL (30-100)
[2021-08-02 09:21] LABS: Parathyroid Hormone,Intact 28 pg/mL (19-88)
[2021-08-02 10:08] LABS: HIV-1/2 Ag & Ab Screen Negative (Negative)
[2021-08-03 09:29] LABS: ALT 35 U/L (14-59); AST 24 U/L (15-37); Alkaline Phosphatase 107 U/L (46-116); Anion Gap 11.3 mmol/L (3-11); BUN 43 mg/dL (7-18); Bilirubin, Total 0.7 mg/dL (0.2-1.0); CO2 21.7 mmol/L (21.0-32.0); CREATININE 1.8 mg/dL (0.55-1.02); Calcium 9.5 mg/dL (8.5-10.1); Chloride 104 mmol/L (98-107); Glucose 68 mg/dL (74-106); Potassium 4.5 mmol/L (3.5-5.1); Sodium 137 mmol/L (136-145); Total Protein 7.4 g/dL (6.4-8.2)
== END 2021-08-01 13:37 | disposition home or self-care (01) ==
LOC: NCHCN 13:36
PROVIDERS: PCP Family Medicine; Visit Provider Family Medicine
DX: I10 Essential (primary) hypertension (principal); R73.03 Prediabetes; E78.5 Hyperlipidemia, unspecified; E21.0 Primary hyperparathyroidism; N18.32 Chronic kidney disease, stage 3b; Z00.00 Encounter for general adult medical examination without abnormal findings; Z11.4 Encounter for screening for human immunodeficiency virus [HIV]
CPT/HCPCS: 80053; 80061; 82306; 85027; 87389; 83970

== ENCOUNTER 2021-08-12 16:41 | Outpatient (REF) | payer OTHER, SELFPAY ==
[2021-08-12 18:44] LABS: Anion Gap 9.4 mmol/L (3-11); BUN 40 mg/dL (7-18); CO2 25.6 mmol/L (21.0-32.0); CREATININE 1.5 mg/dL (0.55-1.02); Chloride 102 mmol/L (98-107); Estimated GFR 35.67 (mL/min/1.73m2); Glucose 99 mg/dL (74-106); Potassium 4.4 mmol/L (3.5-5.1); Sodium 137 mmol/L (136-145)
== END 2021-08-12 16:42 | disposition home or self-care (01) ==
LOC: NCHCN 16:41
PROVIDERS: PCP Family Medicine; Visit Provider Family Medicine
DX: N18.32 Chronic kidney disease, stage 3b (principal)
CPT/HCPCS: 80048

== ENCOUNTER 2021-11-17 18:16 | Outpatient (REF) | payer OTHER, SELFPAY ==
[2021-11-17 15:11] LABS: Bilirubin Negative (Negative); Blood Moderate (Negative); Clarity Cloudy (Clear); Glucose Negative (Negative); Ketones Negative (Negative); Leukocyte Esterase Small (Negative); Nitrite Negative (Negative); Specific Gravity 1.025 (1.005-1.025); Urobilinogen 0.2 EU/dL (Up TO 0.2); pH 5.5 (5-8)
[2021-11-17 15:38] LABS: Bacteria Rare HPF (Negative); C & S Indicated? Yes; Crystals Negative HPF (Negative); Epithelial Cells Few HPF (Negative); Mucus Negative (Negative); Other Cells Few Transitional (Negative); WBC >50 HPF (0-5)
== END 2021-11-17 18:17 | disposition home or self-care (01) ==
LOC: NCHCN 18:16
PROVIDERS: PCP Family Medicine; Visit Provider Physician Assistant
DX: R30.0 Dysuria (principal)
CPT/HCPCS: 87077; 81003; 81015; 87086; 87186

== ENCOUNTER 2022-02-16 11:24 | Outpatient (REF) | payer OTHER, SELFPAY ==
[2022-02-16 16:08] LABS: Anion Gap 7.7 mmol/L (3-11); BUN 31 mg/dL (7-18); CO2 28.3 mmol/L (21.0-32.0); CREATININE 1.7 mg/dL (0.55-1.02); Calcium 9.4 mg/dL (8.5-10.1); Chloride 106 mmol/L (98-107); Estimated GFR 34.55 (mL/min/1.73m2); Glucose 148 mg/dL (74-106); Potassium 4.3 mmol/L (3.5-5.1); Sodium 142 mmol/L (136-145)
== END 2022-02-16 11:25 | disposition home or self-care (01) ==
LOC: NCHCN 11:24
PROVIDERS: PCP Family Medicine; Visit Provider Family Medicine
DX: N18.32 Chronic kidney disease, stage 3b (principal)
CPT/HCPCS: 80048

== ENCOUNTER 2022-03-28 02:28 | Outpatient (CLI) | payer OTHER, SELFPAY ==
--- NOTE | 2022-03-28 14:40 | DI.MRI_ITS ---
Exam(s) MR ANGIO BRAIN WO EXAM: MR ANGIO BRAIN WO CLINICAL HISTORY: FAMILY H/O BRAIN ANEURSYM,Z82.0 TECHNIQUE: Multiplanar multisequence MRI of the brain was performed using noninfused [id number] sequence. COMPARISON: CT CT HEAD WO from 07/27/2019 FINDINGS: ANTERIOR CIRCULATION: Both internal carotid arteries are patent in the skull base-carotid canals and are also demonstrated to be patent within the cavernous sinuses. The intracavernous right ICA exhibits a small outpouching on its medial aspect inferiorly which is just inferior to the takeoff point of the right ophthalmic artery.. This is subtle. Above this level the internal carotid artery is unremarkable in the upper cavernous sinus and supraclinoid aspects of both internal carotid arteries are patent and nonaneurysm al. Both A1 segments are patent as are the anterior cerebral arteries. There is no evidence of aneu rysm at the level of the anterior communicating artery. POSTERIOR CIRCULATION: At the skull base the vertebral arteries both contribute to the formation of t he basilar artery. Vertebral arteries give rise to the posterior inferior cerebellar arteries at [facility] base. Basilar artery ascends with no evidence of significant stenosis. Distally the basilar stefano ry gives off patent bilateral superior cerebellar arteries. Above this level it terminates as patent right posterior cerebral artery. The P1 segment of the left posterior cerebral artery is twig like. Instead, the majority of flow in the left posterior cerebral artery comes from a posterior communic ating artery on the left side of the ziyuyu-cq-Ryunrf which exhibits a luminal diameter of 2 millimet ers. There is no evidence of aneurysm tip of the basilar artery. IMPRESSION: 1. The lower aspect of the intracavernous right internal carotid artery exhibits a medial outpouching just below the takeoff point of the right ophthalmic artery. This may represent a small medial poin ting aneurysm at this level. Recommend CT angiography. No other aneurysms evident. 2. Majority of the left posterior cerebral artery flow comes from a 2 millimeter diameter posterior c ommunicating artery on the left side of the yavron-rg-Izrvot as described above. The right posterior cerebral artery arises in conventional fashion off the distal basilar artery. There is no evidence of aneurysm at the tip of the basilar artery. . DATA REPOSITORY:
== END 2022-03-28 02:48 ==
PROVIDERS: PCP Family Medicine; Visit Provider Family Medicine
DX: R94.02 Abnormal brain scan (principal)
CPT/HCPCS: 70544

== ENCOUNTER 2022-10-25 09:24 | Outpatient (CLI) | payer OTHER, SELFPAY ==
--- NOTE | 2022-10-25 09:00 | DI.RAD_ITS ---
Exam(s) XR KNEE LT 2V AP,LAT EXAM: XR KNEE LT 2V AP,LAT CLINICAL HISTORY: LEFT KNEE PAIN. TECHNIQUE: 2D digital imaging was performed of the left knee. Two images were obtained. AP and lat eral views were obtained. COMPARISON: CR XR KNEE LT 3V AP,LAT,ANNEL from 04/27/2020 FINDINGS: BONES: No acute fracture is present. No bony destructive lesion is seen. There are findings of a hany or ACL repair. JOINTS: The knee is normally aligned. There is a moderate joint effusion. No loose body. SOFT TISSUE: Normal. IMPRESSION: No acute abnormality. DATA REPOSITORY: RADIATION DOSE DELIVERED:
== END 2022-10-25 09:25 | disposition home or self-care (01) ==
LOC: DIORS 09:24
PROVIDERS: PCP Family Medicine; Visit Provider Student in an Organized Health Care Education/Training Program
DX: M25.562 Pain in left knee (principal)
CPT/HCPCS: 73560

== ENCOUNTER → 2022-11-15 01:20 | Outpatient (CLI) | payer OTHER, SELFPAY ==
--- NOTE | 2022-11-15 07:15 | DI.MRI_ITS ---
Exam(s) MR LOWER JOINT LT WO EXAM: MR LOWER JOINT LT WO CLINICAL HISTORY: ? MEDIAL MENISCAL TEAR,acute, pain,s93.8x2a. TECHNIQUE: Multiplanar multisequence MRI was performed. COMPARISON: MR MR LOWER JOINT LT WO from 05/06/2020 CR XR KNEE LT 2V AP,LAT from 10/25/2022 FINDINGS: The examination is limited due to patient motion artifact. BONES: There is no fracture or contusion pattern. There are findings consistent with a prior ACL repa ir. JOINTS: There is mild thinning of the articular cartilage in the medial femoral tibial joint. There is a moderate joint effusion. Patellar plica are seen. TENDONS: Extensor mechanism: Unremarkable. Medial retinaculum: Unremarkable. Lateral retinaculum: Unremarkable. Popliteus: Unremarkable. MUSCLES: Unremarkable. MENISCI: There is a tear of the posterior horn of the medial meniscus. The lateral meniscus is unrem arkable. SOFT TISSUES: There is a tiny popliteal cyst. LIGAMENTS: Anterior Cruciate: The central fibers of the anterior cruciate ligament appears discontinuous consist ent with a tear. Posterior Cruciate: Unremarkable. Medial Collateral:There is a sprain of the medial collateral ligament without evidence of a tear. Lateral Collateral: Unremarkable. OTHER: IMPRESSION: 1. The anterior cruciate ligament appears discontinuous consistent with a tear. 2. Tear of the posterior horn of the medial meniscus. 3. MCL sprain without evidence of a tear. 4. Moderate joint effusion. DATA REPOSITORY:
== END ==
PROVIDERS: PCP Family Medicine; Visit Provider Student in an Organized Health Care Education/Training Program
DX: S83.411A Sprain of medial collateral ligament of right knee, initial encounter; X58.XXXA Exposure to other specified factors, initial encounter
CPT/HCPCS: 73721

== ENCOUNTER 2022-11-30 13:55 | Outpatient (REF) | payer OTHER, SELFPAY ==
[2022-11-30 16:18] LABS: HCT 39.4 % (36.0-46.0); HGB 12.9 g/dL (11.2-15.7); MCH 31.4 pg (27.0-33.0); MCHC 32.7 % (32.0-36.0); MCV 96 fL (80-95); MPV 9.6 fL (8.0-11.0); Platelet Count 360 10^3/uL (130-400); RBC 4.11 10^6/uL (3.93-5.22); RDW 12.9 % (11.7-14.6); RDW-SD 45.2 fL
[2022-11-30 16:38] LABS: NT-proBNP 226 pg/mL (<300)
== END 2022-11-30 13:56 | disposition home or self-care (01) ==
LOC: NCHCN 13:55
PROVIDERS: PCP Family Medicine; Visit Provider Family Medicine
DX: N18.32 Chronic kidney disease, stage 3b (principal); I10 Essential (primary) hypertension; R73.03 Prediabetes
CPT/HCPCS: 85027; 83880

== ENCOUNTER 2022-12-12 16:04 | Outpatient (REF) | payer OTHER, SELFPAY | END 2022-12-12 16:05 | disposition home or self-care (01) | LOC: LBN 16:04 | PROVIDERS: PCP Family Medicine; Visit Provider Nurse Practitioner Family | DX: R30.0 Dysuria (principal); R82.89 Other abnormal findings on cytological and histological examination of urine | CPT/HCPCS: 87086 ==

== ENCOUNTER 2023-03-02 23:27 | Outpatient (REF) | payer OTHER, SELFPAY ==
[2023-03-02 19:03] LABS: Anion Gap 9.8 mmol/L (3-11); CO2 25.2 mmol/L (21.0-32.0); CREATININE 2.2 mg/dL (0.55-1.02); Calcium 9.7 mg/dL (8.5-10.1); Chloride 105 mmol/L (98-107); Glucose 101 mg/dL (74-106); Potassium 4.4 mmol/L (3.5-5.1); Sodium 140 mmol/L (136-145)
[2023-03-02 19:31] LABS: Hemoglobin A1C 5.8 % (<5.7)
[2023-03-02 22:04] LABS: BUN 38 mg/dL (7-18)
== END 2023-03-02 23:28 | disposition home or self-care (01) ==
LOC: NCHCN 23:27
PROVIDERS: PCP Family Medicine; Visit Provider Family Medicine
DX: N18.32 Chronic kidney disease, stage 3b (principal); R73.03 Prediabetes
CPT/HCPCS: 80048; 83036

== ENCOUNTER 2023-04-02 09:26 | Outpatient (REF) | payer OTHER, SELFPAY ==
[2023-04-02 15:59] LABS: Anion Gap 12.7 mmol/L (3-11); BUN 31 mg/dL (7-18); CO2 23.3 mmol/L (21.0-32.0); CREATININE 1.9 mg/dL (0.55-1.02); Calcium 9.5 mg/dL (8.5-10.1); Chloride 110 mmol/L (98-107); Estimated GFR 30.04 (mL/min/1.73m2); Glucose 93 mg/dL (74-106); Potassium 5.1 mmol/L (3.5-5.1); Sodium 146 mmol/L (136-145)
== END 2023-04-02 09:27 | disposition home or self-care (01) ==
LOC: NCHCN 09:26
PROVIDERS: PCP Family Medicine; Visit Provider Family Medicine
DX: N18.32 Chronic kidney disease, stage 3b (principal)
CPT/HCPCS: 80048

== ENCOUNTER 2023-04-20 17:37 | Observation (INO) | payer OTHER, SELFPAY ==
[2023-04-20] VITALS (27 sets, daily range): BP systolic 121–163; BP diastolic 79–100; PULSE 57–83; RESP 13–24; TEMP 35.6–36.7; O2SAT 93–100; BMI 34.9
--- NOTE | 2023-04-20 07:13 | W.PM.DSUDISC ---
Date of service: 04/20/23 Time of Service: 15:30 Discharge Plan Disposition Patient Disposition: Home Condition: Stable Discharge Details Attending Provider: Samm Nazario Primary Care Provider: Trinh Coates Home Meds and New Rx's Prescriptions: New naproxen 250 mg tablet 250 - 500 mg PO BID PRN (Reason: moderate pain and swelling) Qty: 40 0RF oxycodone 5 mg tablet 5 - 10 mg PO .q4-6h PRN (Reason: severe pain) Qty: 9 0RF Continued Stelara 45 mg/0.5 mL solution 45 mg SC Q12W Patient Comments: Pt states this was last received 12 weeks ago.HE calcium carbonate [Calcium 600] 600 mg calcium (1,500 mg) tablet 600 mg PO DAILY aspirin 81 mg tablet,delayed release (DR/EC) 81 mg PO DAILY fluoxetine [Prozac] 40 MG capsule 40 mg PO DAILY diltiazem HCl 240 MG capsule,extended release 24hr 240 mg PO HS rosuvastatin [Crestor] 10 mg tablet 10 mg PO DAILY clobetasol 0.05 % cream 1 applic topical DAILY cholecalciferol (vitamin D3) 1,000 UNITS tablet 1,000 units PO DAILY ferrous sulfate [Feosol] 325 MG tablet 1 tab PO DAILY losartan 25 mg Tablet 100 mg PO DAILY spironolactone 25 mg tablet 25 mg PO DAILY Patient Comments: TAKE 1 TABLET BY MOUTH ONCE DAILY gabapentin 300 mg capsule 300 mg PO BID Patient Comments: TK 1 C PO IN THE MORNING AND HS exemestane 25 mg tablet 25 mg PO DAILY Patient Comments: TAKE 1 TABLET BY MOUTH DAILY Discharge Instructions Additional Instructions: Surgery: Left knee arthroscopy with revision ACL reconstruction (quadriceps allograft), partial medial meniscectomy, and pretibial hardware removal Activity: Weightbearing as tolerated. Use crutches for support for a few weeks if needed. Advance range of motion as comfort allows. It is important to restore full knee extension soon as possible. Encourage ankle pumps, wiggle toes, and elevate to minimize swelling and discomfort and improve circulation. Recommend avoiding sports, pivoting, and squatting for about 6-9 months. A physical therapy prescription will be sent electronically to start in about 2 weeks. Prescriptions: Resume daily aspirin Naproxen 250 mg take 1-2 every 12 hours with a meal as needed for moderate pain Oxycodone 5 mg take 1-2 every 4-6 hours as needed for severe pain You may use [id number]-lexenbh Tylenol (acetaminophen) as needed for mild pain. These pain medications may be taken all at once or in different combinations as needed. Also, recommend Colace (docusate) as a stool softener as surgery and pain medicine cause constipation. You may try ticl-ays-gmsozqy diphenhydramine (Benadryl) 25-50 mg nightly as a sleep aid Dressings: Leave dressing in place for 3-5 days. May then remove and leave open to air or cover incisions with Band-Aids. Leave the sticky Steri-Strips in place until they fall off or remove them after you shower. May shower after 5-7 days. Follow-up: 10-[address] Nazario You may take off the leg compression stockings this evening at home. You may also leave them on a few days longer if you have a history of leg swelling or edema. Let us know right away if you develop any redness, drainage, fevers, chest pain, or trouble breathing. Do not drink alcohol or drive for at least 24 hours after anesthesia. Please call the office during business hours with any questions or concerns. Discharge Orders Discharge Orders: Discharge Order (Routine); Ordered 04/20/23 Ordered By: Samm Nazario DS: Diagnosis Discharge Diagnosis (1) Left ACL tear: Status: Acute (2) Acute medial meniscus tear of left knee: Status: Acute
--- NOTE | 2023-04-20 07:13 | W.PM.OP ---
Date of service: 04/20/23 Time of Service: 12:00 Operative Note Operative Note DATE OF PROCEDURE: 04/20/23 PRE-OP DIAGNOSIS: Left knee 1. ACL graft failure 2. Medial meniscus tear 3. Painful pretibial cortical button hardware POST-OP DIAGNOSIS: other PROCEDURE: Left knee 1. Revision ACL reconstruction, CPT #95794: Quadriceps allograft 2. Partial medial meniscetomy, CPT #25436 3. Removal of deep hardware, CPT #37263 SURGEON: Samm Nazario MEDICAL REVIEWER: Veronica Peres ANESTHESIA TYPE: Local By Surgeon, General LMA/ETT and Primary Nerve Block Refer to Anesthesia Record ESTIMATED BLOOD LOSS: 15 TOURNIQUET TIME: 0 COMPLICATIONS: None Patient was transported to: PACU Patient's condition: stable Implants: Arthrex ACL TightRope II RT and ABS with 14mm round cortical button Indications: Please see complete medical record for details. Findings: Grossly positive Marshall, stable varus and valgus, full range of motion. Moderate medial femoral condyle chondromalacia and degenerative?type posterior horn medial meniscus tear horizontal to about the red zone. Frayed and partially torn previous ACL graft about 50% mid substance with the remainder showing laxity. Partially scarred healed posterior horn lateral meniscus with the remainder lateral meniscus intact and lateral compartment intact. Procedure Description: In the operating room, general anesthesia was induced. The patient was positioned supine on the operating room table. All bony prominences were well-padded. Preoperative antibiotics were administered. The Left knee was prepped and draped in the usual sterile fashion. The correct patient, procedure, and side of the procedure were all verified prior to incision. The pretibial button was palpated, this site and the remainder of the planned incisions preinjected with 0.25% bupivacaine containing epinephrine. Small longitudinal incision was made over the palpable button, button exposed although deep beneath periosteum and fibrous tissue, uncover, and removed in 2 pieces with all prominent suture material. Care was taken to ensure this small incision did not have any remaining prominent material. Next, the previously used anteromedial anterolateral portals were opened and diagnostic arthroscopy performed. Passports were inserted. The ACL remnant had partial tearing the remainder was poor quality, in combination with the knee instability, decision was made to proceed with revision ACL reconstruction. The remnant was removed and the notch was prepared for ACL reconstruction. There is odessa and hand instruments had to be used to remove suture material from the prior graft around the previous bone sockets, The medial meniscus posterior horn tear was then examined, alternate between mechanical shaver and meniscal biters the meniscus tear was resected and remnant contoured to a more smooth and stable margin taking care to preserve as much meniscus as reasonable although the horizontal degenerative part of the tear did progress to the red to capsular zone. The lateral meniscus was largely intact, sutures from the prior root repair were slightly prominent in the lateral notch and were resected. On the back table, the quadriceps allograft was prepared. It was presutured with FiberTape and the tight ropes were added on both sides. Graft measured about 10 x 70 mm, did not elongate under testing, and was readily compressed into a 9 mm graft tube under vancomycin soaked sponges. Back in the knee, the 6?9 guide was used to localize the previous anatomic femoral socket. Unfortunate, the femoral button could not readily be removed and did not want to make a large incision to remove it, but it did seem to block the flip cutter from resting in exactly the same location. The drill guide was rotated lower, more posteriorly, and then drilled into the knee exiting in a similar location. Transosseous length was somewhat shorter due to this change in location about 30 mm with a 20 mm socket. The flip cutter was run multiple times in various hand instruments used to remove suture and prior graft material from interfering in the socket. The tibial guide was then used to localize tibial socket, moved deliberately more posteriorly than the prior socket and to avoid convergence, it was set along on the tibia to have adequate length given the short femoral socket to about 60 degrees and the root repair pretibial incision was used for the guide placed down to bone. Flip cutter was drilled into the knee, flip coated to a socket of 40 mm, and again run a few times to clear prior suture material at this time likely from the root repair. Passing sutures were in place and brought out the anterior portal. The graft was then brought over the knee, femoral passing suture was used to deliver the femoral RT cortical button into the socket, and flipped at the appropriately marked length onto the lateral femoral condyle. The graft was then delivered about 15 mm into the femoral socket and then shuttled through the pretibial socket and then with probe assistance dunked into the tibial socket. It was advanced as far as possible about 17- mm into the femoral socket and then tensioned with the remainder of space in the longer tibial socket with a larger round 14 mm cortical button placed down to bone taking care to avoid soft tissues. The knee was cycled numerous times. Tension rechecked on both sides, and final tightening done with the knee in full extension with a moderate reverse Marshall maintained. The graft position and tension were appropriate. There was no impingement in full extension. Marshall exam was stable. Femoral passing sutures were removed. Backup knots were then tied on both sides and suture tails cut. The knee and all portals were copiously irrigated and then knee drained of arthroscopic fluid. 3-0 Monocryl was used to close the portals and small incisions in a buried interrupted fashion. Mastisol, Steri-Strips, Xeroform, 4 x 4 gauze, and sterile soft roll was applied. The extremity was wrapped gently with an Joselito bandage. The patient awoke from anesthesia without complication and was transferred to the recovery room in a stable condition.
--- NOTE | 2023-04-20 08:25 | W.ANESPRE ---
General Info Date of Service Date Performed: 04/20/23 Height: 5 ft Weight: 81.193 kg Body Mass Index (BMI): 34.9 Surgical Procedure: Operation Date: 04/20/23 12:10 Proposed Procedure Side Surgeon p Knee Arthroscopy w/Revision ACL Reconstruction Left Samm Nazario MD s Hardware Removal Left Samm Nazario MD Meds Allergies and Home Medications Allergies Allergy/AdvReac Type Severity Reaction Status Date / Time sertraline [From Zoloft] Allergy Skin Rash Verified 04/20/23 09:04 Penicillins AdvReac Intermediate Thrush Verified 04/20/23 09:04 Home Medication Medication Instructions Recorded diltiazem HCl 240 mg 240 mg PO HS 01/06/13 capsule,extended release 24 hr fluoxetine 40 mg capsule (Prozac) 40 mg PO DAILY 01/06/13 cholecalciferol (vitamin D3) 25 1,000 units PO DAILY 03/06/13 mcg (1,000 unit) tablet ferrous sulfate 325 mg (65 mg 1 tab PO DAILY 01/26/14 iron) tablet (Feosol) losartan 25 mg tablet 100 mg PO DAILY 10/24/17 gabapentin 300 mg capsule 300 mg PO BID 07/27/19 spironolactone 25 mg tablet 25 mg PO DAILY 07/27/19 ustekinumab 45 mg/0.5 mL 45 mg subcut Q12W 08/05/19 subcutaneous solution (Stelara) clobetasol 0.05 % topical cream 1 applic topical DAILY 09/24/20 rosuvastatin 10 mg tablet (Crestor) 10 mg PO DAILY 09/24/20 exemestane 25 mg tablet 25 mg PO DAILY 12/22/20 calcium carbonate 600 mg calcium 600 mg PO DAILY 12/06/21 (1,500 mg) tablet (Calcium) aspirin 81 mg tablet,delayed 81 mg PO DAILY 09/19/22 release Current Visit Medications: Current Medications Generic Name Dose Route Start Last Admin Trade Name Freq PRN Reason Stop Dose Admin Acetaminophen 1,000 mg 04/20/23 07:12 Acetaminophen 500 Mg Tab PO 05/20/23 07:11 Q6H PRN PRN Ringer's Solution 1,000 mls @ 30 mls/hr 04/20/23 06:00 IV 04/20/23 23:59 INFUSION GEORGINA Cefazolin Sodium/Dextrose 2 gm in 50 mls @ 100 mls/hr 04/20/23 06:00 Ancef Duplex IVPB 04/20/23 23:59 PREOP GEORGINA IV Miscellaneous Supplies 1 each 04/20/23 06:00 Iv Access IV 04/20/23 23:59 DIRECTED GEORGINA Naproxen 250 - 500 mg 04/20/23 07:12 Naproxen 500 Mg Tab PO 05/20/23 07:11 BID PRN PRN Sodium Chloride 0 ml 04/20/23 06:00 Normal Saline Flush 10 Ml Syr IV 04/20/23 23:59 PRN PRN Sodium Chloride 0 ml 04/20/23 06:00 Normal Saline 10 Ml Vial IJ 04/20/23 23:59 DIRECTED PRN Sterile Water 0 ml 04/20/23 06:00 Water,Injection,Sterile 10 Ml Vial IJ 04/20/23 23:59 DIRECTED PRN Tramadol HCl 50 mg 04/20/23 07:12 Tramadol 50 Mg Tab PO 05/20/23 07:11 Q6H PRN PRN PFSH Active Problems Active Problems: Problem Status Onset Code Left ACL tear ~03/2020 S83.512A Acute lateral meniscal injury of left knee S83.8X2A Acute medial meniscus tear of left knee ~10/07/22 S83.242A Brain aneurysm I67.1 External hemorrhoids K64.4 Sessile colonic polyp K63.5 Tubular adenoma of colon D12.6 JACQUELYN (obstructive sleep apnea) G47.33 Screening for colon cancer Z12.11 Medical History Medical History Lichen simplex chronicus Exophthalmos History of left breast cancer Sciatica Prediabetes Chronic kidney disease Peripheral neuropathy Lymphedema Left arm Hyperaldosteronism Right rotator cuff tendonitis Right lateral epicondylitis Trigger ring finger of right hand Biceps tendinitis of right shoulder s/p right shoulder arthroscopy DOS: 12/12/19 Arthritis of right acromioclavicular joint s/p right shoulder arthroscopy DOS: 12/12/19 Vulvar rash (12/11/13) lichen simplex chronicus, w/ features of psoriasis which pt has on hands and elsewhere. treated w/ steroids Tinnitus (10/27/15) Left ureteral stone (03/02/17) Irregular bleeding (05/14/14) currently treated w/ POPs, to amenorhea History of hyperparathyroidism (03/02/17) Bursitis of shoulder (12/30/12) Bilateral kidney stones (03/02/17) Abnormal auditory perception (10/27/15) Obesity Hypertension Psoriasis Proteinuria Impaired fasting glucose Kidney stone Hyperlipidemia Herpes, genital Fibrocystic breast Depression Attention deficit disorder (ADD) Hypomagnesemia Hx of hypoparathyroidism History of hypothyroidism Psoriasis Breast cancer Seroma complicating a procedure Leukocytosis Hypokalemia Surgical History Surgical History Brain surgery within last 3 months Hx of knee surgery History of ankle surgery Left Hx of shoulder surgery Left Hx of bilateral mastectomy Hx of shoulder surgery L arm clavicle and muscle Rotator cuff tear, right s/p right shoulder arthroscopy with arthroscopic biceps tenodesis DOS: 12/12/19 RIGHT THUMB ARTHROPLASTY (01/27/15) [facility] [place] [facility] [place] Tobacco Smoking/Tobacco Use Status: Former Tobacco Use Alcohol Alcohol Intake: current Alcohol intake frequency: a few times a week Substance Use Substance use: Never Substance use type: does not use Vital Signs and Lab Results Vital Signs Most Recent Vital Signs in EMR: Temp Pulse Resp BP Pulse Ox 36.6 C 71 16 124/84 97 04/20/23 09:06 04/20/23 09:06 04/20/23 09:06 04/20/23 09:06 04/20/23 09:06 Lab Results Blood Type / Crossmatch: No Data to Display Complete Blood Count: No Data to Display Complete Metabolic Panel: Sodium 146 mmol/L (136-145) H 04/02/23 08:25 Potassium 5.1 mmol/L (3.5-5.1) 04/02/23 08:25 Chloride 110 mmol/L (98-107) H 04/02/23 08:25 Carbon Dioxide 23.3 mmol/L (21.0-32.0) 04/02/23 08:25 BUN 31 mg/dL (7-18) H 04/02/23 08:25 Creatinine 1.9 mg/dL (0.55-1.02) H 04/02/23 08:25 Est GFR (CKD-EPI 2020) 30.04 (mL/min/1.73m2) 04/02/23 08:25 Calcium 9.5 mg/dL (8.5-10.1) 04/02/23 08:25 Glucose 93 mg/dL (74-106) 04/02/23 08:25 Liver Function Panel: No Data to Display Coagulation Panel: No Data to Display Cardiac Panel: No Data to Display Arterial Blood Gas: No Data to Display Venous Blood Gas: No Data to Display Pancreas Panel: No Data to Display Thyroid Panel: No Data to Display Infectious Disease: No Data to Display Blood Cultures: No Data to Display Toxicology Panel: No Data to Display Imaging and Studies Imaging and Studies Study information below may be from another EMR and interpreted by another provider. Please see original notes in EMR for more complete details. Echocardiogram Summary: 12/11: LVEF 55-60%, no sig valve dz. 06/01/2017: [facility] [place]: EF 70%, Mild LVH, Trace MR, Other valves normal. Anesthesia Assessment and Plan Anesthesia History Personal History: No History of Anesthesia Complications Family History: No Family History of Anesthesia Complications Exercise Tolerance Exercise Tolerance: Metabolic Equivalents>4 Pertinent Negatives Pertinent Negatives: No Symptoms of GERD, No Major Cardiovascular Symptoms or Complaints and No Major Pulmonary Symptoms or Complaints Cardiac & Pulmonary Exam Cardiac Exam: Normal S1/S2 Heart Sounds Pulmonary Exam: Clear Bilateral Breath Sounds Implantable Cardiac Device Does patient have a Pacemaker or an ICD?: No Airway Exam Known Difficult Airway: No Mallampati Class: 2 Mouth Opening: Normal (> 3cm) Thyromental Distance: Less than 3 cm Neck Range of Motion: Full ROM Neck Circumference: Normal Teeth Condition: Normal Dentition ASA Classification ASA Score: ASA 2 Emergency Case?: No NPO Status NPO Status: NPO Clears >2 hours, Solids >8 hours Anesthesia Plan Resuscitation Status: Full Code Anesthesia Technique: General Anesthesia Airway Planned: Endotracheal Tube Pain Management: Surgeon and patient request nerve block Monitors Used: Standard Monitors Preoperative Comments:: 57 yo female for knee scope/acl revision. 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 flow diverting stent embolization performed 08/11 [facility] [place] preDM, hyperaldosteronism, beast CA (mastectomy, radiation, chemo), CKD, former smoker (quit 1992), occ ETOH. Previous Anes: - colo, prop, natural airway, no issues. - ACL, dex/ketamine, prop, glide 3 grade 1, easy mask. femoral nerve block, 15 mL 0.5%, exparel 10 mL, 9/10 pain on post op note. - shoulder, prop, phenyl, glide 3 grade 1, easy mask. ISB, 15 mL 0.5% bup, exparel 10 mL - [facility] [place] mastectomy, mac 3 marquise 1. Discussed regional anesthesia plan, discussed the 9/10 that was listed on her post op note, she states that she was comfortable and that the block lasted for 2 days and she would like to repeat the same procedure (femoral nerve block.
[2023-04-20] MEDS: Lactated Ringers 1,000 ML 30 ML IV (09:32)
[2023-04-20] MEDS: ceFAZolin 2 GM/50 ML BAG IVPB (12:00)
--- NOTE | 2023-04-20 12:10 | W.ANESNERVE ---
Nerve Block Single Injection Procedure Date and Time Date Performed: 04/20/23 Procedure Start: 11:30 Location Where Procedure Performed Procedure Location: Day Surgery Unit Reason Performed: Postoperative Analgesia Requesting Provider: Samm Nazario Timeout Performed Timeout Performed: Yes Monitoring Used ECG, Blood Pressure and SpO2 Sterility Sterility: Hand Hygiene, Surgical Cap, Surgical Mask, Sterile Gloves and Chlorhexidine Sedation Given During Procedure Sedation Given (Indicate Dose Given): Versed IV Dose:: 2 mg Patient Mental Status Patient Mental Status: Sedate with meaningful communication Nerve Block 1st Nerve Block: Laterality: Left Block Type: Femoral Ultrasound Image Saved?: Yes Needle / Catheter Used: 100mm SonoPlex II Local Anesthetic Bolus (Indicate Dose Given): Lidocaine used for local infiltration of skin, Bupivacaine 0.375% Dose:: 15 mL and Exparel Dose:: 10 mL Additives (Indicate Dose Given): None Ultrasound: Sterile probe cover and gel used Nerve Stimulator: Supplement to Ultrasound use and No twitch or parasthesia noted < 0.5 mA Paresthesia: None Procedure Tolerated: No Complications Procedure Outcome: Successful Performed By: Sushant Montoya
[2023-04-20] MEDS: Tranexamic Acid 1,000 MG/10 ML VIAL 1000 MG (12:14)
[2023-04-20] MEDS: EPINEPHrine 10 MG/10 ML ML (14:50)
--- NOTE | 2023-04-20 15:03 | W.ANESPOSTOP ---
Postoperative Evaluation Date, Time and Location Date Performed: 04/20/23 Time Performed: 15:03 Patient Location: PACU Vital Signs Most Recent Imported Vital Signs: Most Recent Vital Signs Temp Pulse Resp BP Pulse Ox 36.3 C L 74 20 133/80 99 04/20/23 14:50 04/20/23 14:50 04/20/23 14:50 04/20/23 14:50 04/20/23 14:50 Pain Score Most Recent Pain Score: Most Recent Pain Score Pain Level 0 04/20/23 11:27 Assessment Mental Status: Arousable with meaningful communication Airway and Respiratory Function: Patent airway with normal (patient baseline) respiratory exam Cardiovascular Function: Hemodynamically Stable Hydration Status: Adequately Hydrated Nausea & Vomiting: No Nausea or Vomiting Pain: Pain is Moderate or Severe Postoperative Pain Management: Pain being addressed with medication Peripheral Nerve Block: Regional nerve block not resolved at time of post operative discharge
[2023-04-20] MEDS: HYDROmorphone 2 MG/ML SYR IVP ×2 (15:04→15:15)
[2023-04-20] MEDS: fentaNYL 100 MCG/2 ML VIAL IVP (15:50)
[2023-04-20] MEDS: Methocarbamol 750 MG TAB PO (16:07)
[2023-04-20] MEDS: traMADol 50 MG TAB PO ×2 (16:27→22:21)
[2023-04-20] MEDS: Naproxen 500 MG TAB PO (18:42)
[2023-04-20] MEDS: Acetaminophen 500 MG TAB 1000 MG PO (18:42)
[2023-04-20] MEDS: Gabapentin 300 MG CAP PO (20:25)
[2023-04-20] MEDS: oxyCODONE 5 MG TAB PO (20:25)
[2023-04-20] MEDS: dilTIAZem CD 120 MG CAPCR 240 MG PO (22:21)
[2023-04-21] MEDS: oxyCODONE 5 MG TAB PO ×2 (00:24→05:26)
[2023-04-21 00:37] VITALS: BP 133/83; PULSE 82; RESP 18; TEMP 36.2; O2SAT 94
[2023-04-21 04:20] VITALS: BP 122/80; PULSE 82; RESP 16; TEMP 36.2; O2SAT 95
[2023-04-21 07:03] VITALS: BP 129/82; PULSE 77; RESP 16; TEMP 36.4; O2SAT 95
--- NOTE | 2023-04-21 08:40 | W.PM.PROGNOT ---
Date of Service Date of service: 04/21/23 Time of Service: 09:30 Assessment and Plan Assessment and plan (1) Left ACL tear: Status: Acute Assessment and plan: 57 year old female POD#1 s/p Left knee arthroscopy with revision ACL reconstruction (quadriceps allograft), partial medial meniscectomy, and pretibial hardware removal Patient observed overnight d/t pain. Chart reviewed showing improvements. OK for discharge today when appropriate. Remainder as per DSU discharge document. Qualifiers: Encounter type: initial encounter Qualified Code(s): S83.512A - Sprain of anterior cruciate ligament of left knee, initial encounter (2) Acute medial meniscus tear of left knee: Status: Acute Objective Last Vital Signs Temp 97.6 F 04/21/23 07:03 Pulse 77 04/21/23 07:03 Resp 16 04/21/23 07:03 BP 129/82 04/21/23 07:03 Pulse Ox 95 04/21/23 07:03 Time Spent with Patient Time Spent with Patient: <25 minutes Time was spent: care coordination
[2023-04-21] MEDS: Acetaminophen 500 MG TAB 1000 MG PO (08:54)
[2023-04-21] MEDS: Losartan 25 MG TAB 100 MG PO (08:55)
[2023-04-21] MEDS: Gabapentin 300 MG CAP PO (08:55)
[2023-04-21] MEDS: Aspirin E.C. 81 MG TABEC PO (08:55)
[2023-04-21] MEDS: Spironolactone 25 MG TAB PO (08:55)
[2023-04-21] MEDS: FLUoxetine 20 MG CAP 40 MG PO (08:55)
[2023-04-21] MEDS: Naproxen 500 MG TAB PO (11:14)
== END 2023-04-21 11:46 | disposition home or self-care (01) ==
LOC: MS 17:47 → SUR 22:19 → MS 22:19
PROVIDERS: Admitting Provider Student in an Organized Health Care Education/Training Program; PCP Family Medicine; Visit Provider Student in an Organized Health Care Education/Training Program
PROC: (CPT 29888; principal; 2023-04-20 12:00)
PROC: (CPT 29888; 2023-04-20 12:00)
DX: M23.222 Derangement of posterior horn of medial meniscus due to old tear or injury, left knee (principal); T84.84XA Pain due to internal orthopedic prosthetic devices, implants and grafts, initial encounter; T84.89XA Other specified complication of internal orthopedic prosthetic devices, implants and grafts, initial encounter; Z79.82 Long term (current) use of aspirin; Z79.899 Other long term (current) drug therapy; K64.4 Residual hemorrhoidal skin tags; Z86.010 Personal history of colon polyps; G47.33 Obstructive sleep apnea (adult) (pediatric); R73.03 Prediabetes; N18.9 Chronic kidney disease, unspecified; G62.9 Polyneuropathy, unspecified; I89.0 Lymphedema, not elsewhere classified; Z85.3 Personal history of malignant neoplasm of breast; M54.30 Sciatica, unspecified side; E66.9 Obesity, unspecified; I12.9 Hypertensive chronic kidney disease with stage 1 through stage 4 chronic kidney disease, or unspecified chronic kidney disease; E78.5 Hyperlipidemia, unspecified; F32.A Depression, unspecified; M94.262 Chondromalacia, left knee
CPT/HCPCS: 29888; 29881; 20680; 76942; C9290; G0378; J0171; J0665; J0690; J1100; J1170; J2250; J2371; J2405; J2704; J3010; J3370; J3475

== ENCOUNTER 2023-05-18 08:25 | Emergency (ER) | payer OTHER, SELFPAY ==
--- NOTE | 2023-05-18 08:30 | DI.CT_ITS ---
Exam(s) CT PELVIC WO EXAM: CT PELVIC WO CLINICAL HISTORY: back pain fall hip pain. TECHNIQUE: Imaging Protocol: Axial computed tomography images with coronal and sagittal reformatted images were created and reviewed. CONTRAST MATERIAL: Oral: / no COMPARISON: CT RENAL COLIC WO CONTRAST from 02/06/2017 FINDINGS: Bladder: Symmetric distention, no gross wall thickening. Bowel: No obstruction or bowel wall thickening. Moderate quantity of stool. Peritoneal cavity: No ascites, collection or mesenteric inflammatory response. Reproductive: Unremarkable. Bones: No fracture. No significant degenerative changes of the hips. SI joints and pubic symphysis are unremarkable. No lytic or blastic lesions. Soft tissues: Surgical clips in anterior abdominal wall. No evidence of recurrence hernia. IMPRESSION: No acute abnormality. RADIATION DOSE DELIVERED: Total DLP DATA REPOSITORY: All CT scans at this facility are submitted to the National Radiology Data Registry (NRDR) Dose Index Registry (DIR) with the [employer] (A[employer]). RADIATION OPTIMIZATION: All CT scans at this facility use at least one of these dose optimization te chniques: automated exposure control; mA and/or kV adjustment per patient size (includes targeted exa ms where dose is matched to clinical indication); or iterative reconstruction.
--- NOTE | 2023-05-18 08:30 | DI.CT_ITS ---
Exam(s) CT THORACIC LUMBAR SPINE WO EXAM: CT THORACIC LUMBAR SPINE WO CLINICAL HISTORY: back pain. TECHNIQUE: Imaging Protocol: Axial, coronal and sagittal images were reconstructed utilizing bone a nd soft tissue algorithm. COMPARISON: CT RENAL COLIC WO CONTRAST from 02/06/[address] CHEST W from 07/09/2019 FINDINGS: THORACIC SPINE: Bones: No fractures are seen. The alignment of the spine is normal including the cervicothoracic perfecto ction. There are endplate osteophytes which project anteriorly. No encroachment into the central can al are neural foramen. Mild facet joint degenerative changes. Soft tissues: The soft tissues of the chest are unremarkable. No large disk herniations are identifie d. No acute pulmonary abnormality. Tiny hiatal hernia. LUMBAR SPINE: No fracture is identified. Degenerative disc changes and facet degenerative changes are present. Soft tissues: There is no large disc herniation. Mild disc bulging at L2-3. Narrowing of the L3-4 disc space eccentric toward the right with endplate osteophytes. Minimal disc bulging. Right neural foraminal narrowing. No paraspinal hematoma. Mild disc bulging at L4-5. Facet degenerative changes and ligamentous hypertrophy combine to produce mild central canal stenosis. Mild disc bulging at L5-S1. Mild bilateral neural foraminal narrowing. 6 millimeter nonobstructing stone upper pole left kidney. Additional smaller stone inferiorly. IMPRESSION: No acute abnormality of the thoracic or lumbar spine. Degenerative changes as above. RADIATION DOSE DELIVERED: Total DLP DATA REPOSITORY: All CT scans at this facility are submitted to the National Radiology Data Registry (NRDR) Dose Index Registry (DIR) with the [employer] (ACR). RADIATION OPTIMIZATION: All CT scans at this facility use at least one of these dose optimization te chniques: automated exposure control; mA and/or kV adjustment per patient size (includes targeted exa ms where dose is matched to clinical indication); or iterative reconstruction.
[2023-05-18 08:33] VITALS: BP 133/75; PULSE 66; RESP 16; TEMP 36.6
--- NOTE | 2023-05-18 08:37 | ED.GENADUL_ITS ---
Discharge Plan Disposition Patient Disposition: Home Condition: Improving Discharge Details Clinical Impression: Severe back pain Primary Care Provider: Trinh Coates ED Provider: Rodolfo Perdomo Home Meds and New Rx's Prescriptions: New lidocaine 5 % adhesive patch,medicated 2 patch topical DAILY Qty: 15 0RF Rx Instructions: leave on most painful area for up to 12 hrs methocarbamol 500 mg tablet 1,000 mg PO TID PRN (Reason: spasms) Qty: 30 0RF diazepam [Valium] 5 mg tablet 5 mg PO TID PRN (Reason: muscle spasm) Qty: 9 0RF No Action Stelara 45 mg/0.5 mL solution 45 mg SC Q12W Patient Comments: Pt states this was last received 12 weeks ago.HE calcium carbonate [Calcium 600] 600 mg calcium (1,500 mg) tablet 600 mg PO DAILY aspirin 81 mg tablet,delayed release (DR/EC) 81 mg PO DAILY fluoxetine [Prozac] 40 MG capsule 40 mg PO DAILY diltiazem HCl 240 MG capsule,extended release 24hr 240 mg PO HS rosuvastatin [Crestor] 10 mg tablet 10 mg PO DAILY clobetasol 0.05 % cream 1 applic topical DAILY cholecalciferol (vitamin D3) 1,000 UNITS tablet 1,000 units PO DAILY ferrous sulfate [Feosol] 325 MG tablet 1 tab PO DAILY losartan 25 mg Tablet 100 mg PO DAILY spironolactone 25 mg tablet 25 mg PO DAILY Patient Comments: TAKE 1 TABLET BY MOUTH ONCE DAILY gabapentin 300 mg capsule 300 mg PO BID Patient Comments: TK 1 C PO IN THE MORNING AND HS exemestane 25 mg tablet 25 mg PO DAILY Patient Comments: TAKE 1 TABLET BY MOUTH DAILY Discharge Instructions Instructions: Back Pain (ED) Additional Instructions: Please take medications as prescribed. Continue Motrin and Tylenol. Please follow-up with your PCP. Symptoms may not completely resolve for a few days but you still have continued improvement slowly. Return if you have weakness or sensory loss, any incontinence. HPI General Date/Time Provider Initiated Documentation: 05/18/23 08:32 . Limitations to Documentation: physical limitation . Information obtained by: patient and EMS . HPI Narrative: 57y F with PMH of breast ca (5 years ago s/p mastectomy), brain aneurysm, presents for evaluation of severe back pain. localizes pain to the right lower back. does not radiate. is severe, not relieved by tylenol. did have fentanyl by EMS and had some relief. pain not associated with weakness or sensory change, but was so severe this morning that she fell onto the right hip. she denies any other trauma. states that she feels better laying on her stomach. has had prior left sided sciatica but never anything like this. Related Data Home Medications Medication Instructions Recorded Confirmed diltiazem HCl 240 mg 240 mg PO HS 01/06/13 05/02/23 capsule,extended release 24 hr fluoxetine 40 mg capsule (Prozac) 40 mg PO DAILY 01/06/13 05/02/23 cholecalciferol (vitamin D3) 25 1,000 units PO DAILY 03/06/13 05/02/23 mcg (1,000 unit) tablet ferrous sulfate 325 mg (65 mg 1 tab PO DAILY 01/26/14 05/02/23 iron) tablet (Feosol) losartan 25 mg tablet 100 mg PO DAILY 10/24/17 05/02/23 gabapentin 300 mg capsule 300 mg PO BID 07/27/19 05/02/23 spironolactone 25 mg tablet 25 mg PO DAILY 07/27/19 05/02/23 ustekinumab 45 mg/0.5 mL 45 mg subcut Q12W 08/05/19 05/02/23 subcutaneous solution (Stelara) clobetasol 0.05 % topical cream 1 applic topical DAILY 09/24/20 05/02/23 rosuvastatin 10 mg tablet (Crestor) 10 mg PO DAILY 09/24/20 05/02/23 exemestane 25 mg tablet 25 mg PO DAILY 12/22/20 05/02/23 calcium carbonate 600 mg calcium 600 mg PO DAILY 12/06/21 05/02/23 (1,500 mg) tablet (Calcium) aspirin 81 mg tablet,delayed 81 mg PO DAILY 09/19/22 05/02/23 release diazepam 5 mg tablet (Valium) 5 mg PO TID PRN muscle spasm #9 05/18/23 tabs lidocaine 5 % topical patch 2 patch topical DAILY #15 ea 05/18/23 methocarbamol 500 mg tablet 1,000 mg (2 x 500 mg) PO TID PRN 05/18/23 spasms #30 tabs Previous Rx's Medication Instructions Recorded diazepam 5 mg tablet (Valium) 5 mg PO TID PRN muscle spasm #9 05/18/23 tabs lidocaine 5 % topical patch 2 patch topical DAILY #15 ea 05/18/23 methocarbamol 500 mg tablet 1,000 mg (2 x 500 mg) PO TID PRN 05/18/23 spasms #30 tabs Allergies Allergy/AdvReac Type Severity Reaction Status Date / Time sertraline [From Zoloft] Allergy Skin Rash Verified 05/02/23 08:59 Penicillins AdvReac Intermediate Thrush Verified 05/02/23 08:59 General Stated Complaint: Nk/Back Pain GARRY: 3 Exam Narrative Exam Narrative: Review of Systems: All systems reviewed & are unremarkable except as noted in HPI and below Well-developed, appears very uncomfortable, laying prone on back board NCAT PERRL, normal conjunctiva RRR Unlabored respiratory effort, CTAB Nondistended abdomen , non tender external hemorroid, bleeding no midline back step off or deformity, generalized tenderness with touching No rashes or lesions. no focal neurologic deficits, sensation intact Appropriate mood and affect Course Vital Signs Vital signs: Vital Signs Temperature 36.6 C 05/18/23 08:33 Pulse 66 05/18/23 08:33 Respiratory Rate 16 05/18/23 08:33 Blood Pressure 133/75 05/18/23 08:33 Temperature 36.6 C 05/18/23 08:33 Temperature Source Tympanic 05/18/23 08:33 Pulse 66 05/18/23 08:33 Respiratory Rate 16 05/18/23 08:33 Blood Pressure 133/75 05/18/23 08:33 Blood Pressure Position Right Lateral 05/18/23 08:33 Oxygen Delivery Method Room Air 05/18/23 08:33 Oxygen Flow Rate 0 05/18/23 08:33 Pain Level 8 05/18/23 08:33 Medical Decision Making emergent evaluation of back pain. initial ddx includes metastatic disease, pathologic fracture, hip fracture, muscle spams. given her history of breast CA, suspicious for spinal lesion. plan for pain control and imaging of spine and pelvis. 1020 CT imaging reviewed. There does seem to be some degenerative disc disease, but no acute process or fractures. Patient is neurologically intact, so I doubt cauda equina. I reassessed her after medications and she is sitting in bed. She does have some improvement in symptoms, but has worsened pain with movement. Patient was observed to ambulate with some assistance in the ED. Significant improvement in symptoms and mobility. Will discharge home with medications including Valium. Recommend continuation of medications. Return precautions advised. Follow-up with PCP if symptoms are not improving. Medical Records Medical records reviewed: Yes I reviewed the patient's medical records. Lab Data Lab results reviewed: Yes I reviewed the patient's lab results. Quality:SDOH Health Related Social Needs: No Data to Display PFSH All Active Problems (Updated 05/18/23 @ 11:47 by Rodolfo Perdomo MD) Severe back pain (Acute) Left ACL tear (Acute ~03/2020) Acute lateral meniscal injury of left knee (Acute) Acute medial meniscus tear of left knee (Acute ~10/07/22) Brain aneurysm (Acute) External hemorrhoids (Acute) Sessile colonic polyp (Acute) Tubular adenoma of colon (Acute) JACQUELYN (obstructive sleep apnea) (Chronic) Screening for colon cancer (Acute) Medical History Lichen simplex chronicus Exophthalmos History of left breast cancer Sciatica Prediabetes Chronic kidney disease Peripheral neuropathy Lymphedema Left arm Hyperaldosteronism Right rotator cuff tendonitis Right lateral epicondylitis Trigger ring finger of right hand Biceps tendinitis of right shoulder s/p right shoulder arthroscopy DOS: 12/12/19 Arthritis of right acromioclavicular joint s/p right shoulder arthroscopy DOS: 12/12/19 Vulvar rash (12/11/13) lichen simplex chronicus, w/ features of psoriasis which pt has on hands and elsewhere. treated w/ steroids Tinnitus (10/27/15) Left ureteral stone (03/02/17) Irregular bleeding (05/14/14) currently treated w/ POPs, to amenorhea History of hyperparathyroidism (03/02/17) Bursitis of shoulder (12/30/12) Bilateral kidney stones (03/02/17) Abnormal auditory perception (10/27/15) Obesity Hypertension Psoriasis Proteinuria Impaired fasting glucose Kidney stone Hyperlipidemia Herpes, genital Fibrocystic breast Depression Attention deficit disorder (ADD) Hypomagnesemia Hx of hypoparathyroidism History of hypothyroidism Psoriasis Breast cancer Seroma complicating a procedure Leukocytosis Hypokalemia Surgical History Brain surgery within last 3 months Hx of knee surgery History of ankle surgery Left Hx of shoulder surgery Left Hx of bilateral mastectomy Hx of shoulder surgery L arm clavicle and muscle Rotator cuff tear, right s/p right shoulder arthroscopy with arthroscopic biceps tenodesis DOS: 12/12/19 RIGHT THUMB ARTHROPLASTY (01/27/15) DR. KANG [facility] [place] (~02/2021) Family History Mother Lymphoma Social History Smoking/Tobacco Use Status: Former Tobacco Use Quit Date: 02/20/92 Smoking risk assessment performed?: Yes Alcohol Intake: current Alcohol Intake frequency: a few times a week Drug use: Never Substance use type: does not use Housing: house Current gender identity: female Seatbelt use: always Do you feel safe at home: Yes Do you feel safe in your relationship?: Yes
[2023-05-18] MEDS: Ketorolac 15 MG/ML VIAL 10 MG IVP (08:52)
[2023-05-18] MEDS: HYDROmorphone 2 MG/ML SYR IVP (08:52)
[2023-05-18] MEDS: Ondansetron 4 MG/2 ML VIAL IVP (08:52)
[2023-05-18] MEDS: Methocarbamol 500 MG TAB 1000 MG PO (09:55)
[2023-05-18] MEDS: diazePAM 5 MG TAB PO (11:00)
[2023-05-18 12:18] VITALS: BP 152/85; RESP 18; TEMP 36.4; O2SAT 92
== END 2023-05-18 12:19 | disposition home or self-care (01) ==
PROVIDERS: Emergency Provider Emergency Medicine; PCP Family Medicine
DX: M54.50 Low back pain, unspecified (principal)
CPT/HCPCS: 96374; 96375; 99284; 72128; 72131; 72192; J1170; J1885; J2405

== ENCOUNTER 2023-05-20 13:08 | Inpatient (IN) | payer OTHER, SELFPAY ==
[2023-05-20 13:13] VITALS: BP 114/79; PULSE 82; RESP 16; TEMP 37; O2SAT 97
[2023-05-20] MEDS: ACETAMINOPHEN 1,000 MG/100 ML BTL 400 MG IVPB ×2 (14:32→22:22)
[2023-05-20] MEDS: HYDROmorphone 2 MG/ML SYR 0.5 MG IVP (14:33)
[2023-05-20] MEDS: Dexamethasone 10 MG/ML VIAL IVP (14:35)
[2023-05-20 14:46] LABS: Abs Immature Grans 0.05 10^3/uL (0.0-0.06); Absolute Basophil Count 0.11 10^3/uL (0.0-0.2); Basophils % 0.9; Eosinophils % 1.6; HCT 39.2 % (36.0-46.0); HGB 12.7 g/dL (11.2-15.7); Immature Grans % 0.4; Lymphocytes % 14.9; MCH 31.1 pg (27.0-33.0); MCHC 32.4 % (32.0-36.0); MCV 96 fL (80-95); MPV 9.5 fL (8.0-11.0); Monocytes % 10.6; Neutrophils % 71.6; Platelet Count 347 10^3/uL (130-400); RBC 4.09 10^6/uL (3.93-5.22); RDW 13.6 % (11.7-14.6); RDW-SD 48.4 fL; WBC 12.31 10^3/uL (4.4-10.8)
[2023-05-20 14:50] LABS: ESR 63 mm/hr (0-30)
[2023-05-20 14:52] LABS: Absolute Lymphocyte Count 1.83 10^3/uL (1.2-3.4); Absolute Neutrophil Count 8.81 10^3/uL (1.2-6.7)
[2023-05-20 15:06] LABS: ALT 23 U/L (14-59); AST 13 U/L (15-37); Albumin 3.6 g/dL (3.4-5.0); Alkaline Phosphatase 117 U/L (46-116); Anion Gap 11.6 mmol/L (3-11); BUN 39 mg/dL (7-18); Bilirubin, Total 0.6 mg/dL (0.2-1.0); C-Reactive Protein 8.98 mg/dL (<or=0.5); CO2 24.4 mmol/L (21.0-32.0); CREATININE 1.9 mg/dL (0.55-1.02); Chloride 105 mmol/L (98-107); Estimated GFR 30.04 (mL/min/1.73m2); Glucose 78 mg/dL (74-106); Potassium 3.9 mmol/L (3.5-5.1); Sodium 141 mmol/L (136-145); Total Protein 8.2 g/dL (6.4-8.2)
--- NOTE | 2023-05-20 15:58 | W.ED.GENAD ---
Discharge Plan Disposition Patient Disposition: Admit to [facility] Discharge Details Clinical Impression: Intractable back pain Admit Date/Time: 05/20/23 16:42 Admit Provider: Flex Wilkerson Attending Provider: Flex Wilkerson Primary Care Provider: Trinh Coates ED Provider: Jamil Flores Discharge Data Discharge Date/Time-TO BE ENTERED AT DEPARTURE: 05/20/23 18:13 HPI <STEVAN Reynolds - Last Filed: 05/21/23 17:36> General Date/Time Provider Initiated Documentation: 05/20/23 13:45. HPI Narrative: 57-year-old female with history of brain aneurysm clipped, and hypoaldosteronism presents with report of lumbar and right-sided back pain with radiation down to right mid thigh, denies any strength or sensation change but was evaluated previously and had CTs that did not show significant acute abnormality was discharged home on methocarbamol and Valium without significant relief in pain. Denies any chest pain, shortness of breath, dysuria or frequency. Status post left knee surgery with femoral nerve block and peripheral pain meds only. Denies any changes in bowel or bladder, focal weakness to lower extremities, or groin numbness. Related Data Home Medications Medication Instructions Recorded Confirmed diltiazem HCl 240 mg 240 mg PO HS 01/06/13 05/20/23 capsule,extended release 24 hr fluoxetine 40 mg capsule (Prozac) 40 mg PO DAILY 01/06/13 05/20/23 cholecalciferol (vitamin D3) 25 1,000 units PO DAILY 03/06/13 05/20/23 mcg (1,000 unit) tablet ferrous sulfate 325 mg (65 mg 1 tab PO DAILY 01/26/14 05/20/23 iron) tablet (Feosol) losartan 25 mg tablet 100 mg PO DAILY 10/24/17 05/20/23 gabapentin 300 mg capsule 300 mg PO BID 07/27/19 05/20/23 spironolactone 25 mg tablet 25 mg PO DAILY 07/27/19 05/20/23 ustekinumab 45 mg/0.5 mL 45 mg subcut Q12W 08/05/19 05/20/23 subcutaneous solution (Stelara) clobetasol 0.05 % topical cream 1 applic topical DAILY PRN 09/24/20 05/21/23 rosuvastatin 10 mg tablet (Crestor) 10 mg PO DAILY 09/24/20 05/20/23 exemestane 25 mg tablet 25 mg PO DAILY 12/22/20 05/20/23 calcium carbonate 600 mg calcium 600 mg PO DAILY 12/06/21 05/20/23 (1,500 mg) tablet (Calcium) aspirin 81 mg tablet,delayed 81 mg PO DAILY 09/19/22 05/20/23 release diazepam 5 mg tablet (Valium) 5 mg PO TID PRN muscle spasm #9 05/18/23 05/20/23 tabs lidocaine 5 % topical patch 2 patch topical DAILY #15 ea 05/18/23 05/20/23 methocarbamol 500 mg tablet 1,000 mg (2 x 500 mg) PO TID PRN 05/18/23 05/20/23 spasms #30 tabs acetaminophen 500 mg tablet 650 mg (1.3 x 500 mg) PO QID #0 05/21/23 tabs docusate sodium 100 mg capsule 100 mg PO TID #0 caps 05/21/23 (Colace) polyethylene glycol 3350 17 gram 17 g PO BID #0 ea 05/21/23 oral powder packet prednisone 20 mg tablet 40 mg (2 x 20 mg) PO DAILY #8 tabs 05/21/23 Previous Rx's Medication Instructions Recorded diazepam 5 mg tablet (Valium) 5 mg PO TID PRN muscle spasm #9 05/18/23 tabs lidocaine 5 % topical patch 2 patch topical DAILY #15 ea 05/18/23 methocarbamol 500 mg tablet 1,000 mg (2 x 500 mg) PO TID PRN 05/18/23 spasms #30 tabs acetaminophen 500 mg tablet 650 mg (1.3 x 500 mg) PO QID #0 05/21/23 tabs docusate sodium 100 mg capsule 100 mg PO TID #0 caps 05/21/23 (Colace) polyethylene glycol 3350 17 gram 17 g PO BID #0 ea 05/21/23 oral powder packet prednisone 20 mg tablet 40 mg (2 x 20 mg) PO DAILY #8 tabs 05/21/23 Allergies Allergy/AdvReac Type Severity Reaction Status Date / Time sertraline [From Zoloft] Allergy Skin Rash Verified 05/20/23 13:20 Penicillins AdvReac Intermediate Thrush Verified 05/20/23 13:20 General Stated Complaint: Nk/Back Pain GARRY: 3 Course <STEVAN Reynolds - Last Filed: 05/21/23 17:36> Vital Signs Vital signs: Vital Signs Temperature 37 C 05/20/23 13:13 Pulse 82 05/20/23 13:13 Respiratory Rate 16 05/20/23 13:13 Blood Pressure 114/79 05/20/23 13:13 Pulse Oximetry 97 05/20/23 13:13 Temperature 37 C 05/20/23 13:13 Temperature Source Skin 05/20/23 13:13 Pulse 82 05/20/23 13:13 Respiratory Rate 16 05/20/23 13:13 Respiratory Effort Normal, Non-Labored 05/20/23 13:34 Blood Pressure 114/79 05/20/23 13:13 Blood Pressure Position Sitting 05/20/23 13:13 Pulse Oximetry 97 05/20/23 13:13 Oxygen Delivery Method Room Air 05/20/23 13:13 Oxygen Flow Rate 0 05/20/23 13:13 Pain Level 10 05/20/23 13:13 Lab/Test Results Lab/Test Results: Laboratory Tests Range/Units 05/20/23 14:38 WBC (4.4-10.8) 10^3/uL 12.31 H RBC (3.93-5.22) 10^6/uL 4.09 Hgb (11.2-15.7) g/dL 12.7 Hct (36.0-46.0) % 39.2 MCV (80-95) fL 96 H MCH (27.0-33.0) pg 31.1 MCHC (32.0-36.0) % 32.4 RDW (11.7-14.6) % 13.6 Plt Count (130-400) 10^3/uL 347 MPV (8.0-11.0) fL 9.5 Immature Gran % 0.4 Neutrophils % 71.6 Lymphocytes % 14.9 Monocytes % 10.6 Eosinophils % 1.6 Basophils % 0.9 Nucleated RBC % (0.0-0.3) % 0.0 Absolute Neutrophils (1.2-6.7) 10^3/uL 8.81 H Absolute Lymphocytes (1.2-3.4) 10^3/uL 1.83 Absolute Monocytes (0.1-0.8) 10^3/uL 1.30 H Absolute Eosinophils (0.0-0.7) 10^3/uL 0.20 Absolute Basophils (0.0-0.2) 10^3/uL 0.11 ESR (0-30) mm/hr 63 H Sodium (136-145) mmol/L 141 Potassium (3.5-5.1) mmol/L 3.9 Chloride (98-107) mmol/L 105 Carbon Dioxide (21.0-32.0) mmol/L 24.4 Anion Gap (3-11) mmol/L 11.6 H BUN (7-18) mg/dL 39 H Creatinine (0.55-1.02) mg/dL 1.9 H Est GFR (CKD-EPI 2020) (mL/min/1.73m2) 30.04 Glucose (74-106) mg/dL 78 Calcium (8.5-10.1) mg/dL 9.0 Total Bilirubin (0.2-1.0) mg/dL 0.6 AST (15-37) U/L 13 L ALT (14-59) U/L 23 Alkaline Phosphatase (46-116) U/L 117 H C-Reactive Protein (<or=0.5) mg/dL 8.98 H Total Protein (6.4-8.2) g/dL 8.2 Albumin (3.4-5.0) g/dL 3.6 Medical Decision Making <STEVAN Reynolds - Last Filed: 05/21/23 17:36> 57-year-old female presenting with low back pain with radiation into right lower extremity, return visit, taking meds at home for 2 days, presents secondary to persistent and worsening pain, back with radiation into right lower extremity. No signs or symptoms consistent with cauda equina syndrome, with blood cell count of 12,000, afebrile, stable vitals Negative straight leg raise, negative Babinski, strength and sensation intact distally, reproducible tenderness to sciatic region tenderness with abduction of hip Reviewed CT imaging of patient's pelvis and thoracic and lumbar spine, did not show acute abnormality Given Dilaudid and prednisone here, mild relief in symptoms, ambulatory trial performed, mild elevation in CRP and sed rate, I think patient would benefit from MRI of her lumbar spine, have low suspicion that this is infectious, however given her level of pain and limited ability to ambulate, I think she would benefit from admission for MRI and IV analgesia at this time At this time, patient had significan pain and was unable to ambulate more than 2 feet without assistance from 2 people at bedside She will need admission for MRI and analgesia Quality:[facility] Health Related Social Needs: No Data to Display <Jamil Flores NP - Last Filed: 05/20/23 16:49> 57-year-old female presenting with low back pain with radiation into right lower extremity, return visit, taking meds at home for 2 days, presents secondary to persistent and worsening pain, back with radiation into right lower extremity. No signs or symptoms consistent with cauda equina syndrome, with blood cell count of 12,000, afebrile, stable vitals Negative straight leg raise, negative Babinski, strength and sensation intact distally, reproducible tenderness to sciatic region tenderness with abduction of hip Reviewed CT imaging of patient's pelvis and thoracic and lumbar spine, did not show acute abnormality Given Dilaudid and prednisone here, mild relief in symptoms, ambulatory trial performed, mild elevation in CRP and sed rate, I think patient would benefit from MRI of her lumbar spine, have low suspicion that this is infectious, however given her level of pain and limited ability to ambulate, I think she would benefit from admission for MRI and IV analgesia at this time At this time, patient had significan pain and was unable to ambulate more than 2 feet without assistance from 2 people at bedside She will need admission for MRI and analgesia 1610-received signout from Micaela. Please see above documentation. Concern for irretractable back pain, return patient after 2 days of attempting outpatient therapy with no improvement and slight worsening, patient unable to take more than a couple steps without assistance which is not baseline, given elevated inflammatory markers and some noted leukocytosis there is also concern for discitis. Given that patient is afebrile and normal tensive antibiotics held at this time but patient is already received IV Tylenol, Dilaudid, and steroids. Will continue to monitor and plan to discuss case with hospitalist for admission of irretractable back pain and need of MRI imaging. Did review previous emergency department visit dated 05/[address] imaging was done and showed degenerative disease but no other emergent findings were noted at that time. Discussed case with hospitalist who agreed to admit patient for further pain control and advanced MRI imaging when available. PFSH <STEVAN Reynolds - Last Filed: 05/21/23 17:36> All Active Problems (Updated 05/20/23 @ 20:44 by Flex Wilkerson MD) Intractable back pain (Acute) Severe back pain (Acute) Left ACL tear (Acute ~03/2020) Acute lateral meniscal injury of left knee (Acute) Acute medial meniscus tear of left knee (Acute ~10/07/22) Brain aneurysm (Acute) External hemorrhoids (Acute) Sessile colonic polyp (Acute) Tubular adenoma of colon (Acute) JACQUELYN (obstructive sleep apnea) (Chronic) Screening for colon cancer (Acute) Medical History Lichen simplex chronicus Exophthalmos History of left breast cancer Sciatica Prediabetes Chronic kidney disease Peripheral neuropathy Lymphedema Left arm Hyperaldosteronism Right rotator cuff tendonitis Right lateral epicondylitis Trigger ring finger of right hand Biceps tendinitis of right shoulder s/p right shoulder arthroscopy DOS: 12/12/19 Arthritis of right acromioclavicular joint s/p right shoulder arthroscopy DOS: 12/12/19 Vulvar rash (12/11/13) lichen simplex chronicus, w/ features of psoriasis which pt has on hands and elsewhere. treated w/ steroids Tinnitus (10/27/15) Left ureteral stone (03/02/17) Irregular bleeding (05/14/14) currently treated w/ POPs, to amenorhea History of hyperparathyroidism (03/02/17) Bursitis of shoulder (12/30/12) Bilateral kidney stones (03/02/17) Abnormal auditory perception (10/27/15) Obesity Hypertension Psoriasis Proteinuria Impaired fasting glucose Kidney stone Hyperlipidemia Herpes, genital Fibrocystic breast Depression Attention deficit disorder (ADD) Hypomagnesemia Hx of hypoparathyroidism History of hypothyroidism Psoriasis Breast cancer Seroma complicating a procedure Leukocytosis Hypokalemia Surgical History Brain surgery within last 3 months Hx of knee surgery History of ankle surgery Left Hx of shoulder surgery Left Hx of bilateral mastectomy Hx of shoulder surgery L arm clavicle and muscle Rotator cuff tear, right s/p right shoulder arthroscopy with arthroscopic biceps tenodesis DOS: 12/12/19 RIGHT THUMB ARTHROPLASTY (01/27/15) DR. KANG Colonoscopy - [facility] (~02/2021) Family History Mother Lymphoma Social History Smoking/Tobacco Use Status: Former Tobacco Use Quit Date: 02/20/92 Smoking risk assessment performed?: Yes Alcohol Intake: current Alcohol Intake frequency: a few times a week Drug use: Never Substance use type: does not use Housing: house Current gender identity: female Seatbelt use: always Do you feel safe at home: Yes Do you feel safe in your relationship?: Yes Sign Out <STEVAN Reynolds - Last Filed: 05/21/23 17:36> Sign Out Data: Sign Out Comment: pending admission, intractable back pain Last updated by Micaela Juarez PA at 05/20/23 16:07 PAWSS <STEVAN Reynolds - Last Filed: 05/21/23 17:36> Have you Been Recently Intoxicated or Drunk Within the Last 30 days?: No Have you Ever Experienced Previous Episodes of Alcohol Withdrawal?: No Have you ever Experienced Withdrawal Seizures?: No Have you ever Experienced Delirium Tremens(DT)s?: No Have you ever undergone Alcohol Rehabilitation Treatment (i.e, inpt ot outpatient treatment programs)?: No Have you ever Experienced Blackouts?: No Have you ever Combined Alcohol with other Downers within the last 90 days?: No Have you ever Combined Alcohol with any other Substance of Abuse during the last 90 days?: No Result: 0 <Jamil Flores NP - Last Filed: 05/20/23 16:49> Result: 0
--- NOTE | 2023-05-20 17:46 | HPE_ITS ---
Date of service: 05/20/23 Time of Service: 17:46 Assessment and Plan Assessment and plan (1) Intractable back pain: Status: Acute Assessment and plan: admit on observation status, scheduled Tylenonl, Robaxin, lidoderm patches, prn oxycodone (dilaudid for breakthrough pain), steroids, check MRI of LS spine, consult P.T., begin PPI for GI protection while on steroids, avoid NSAIDs given her chronic kidney disease. (2) Hyperaldosteronism: Assessment and plan: Continue aldosterone and losartan for her blood pressure (3) Hypertension: Assessment and plan: As above Qualifiers: Hypertension type: secondary to endocrine disorders Qualified Code(s): I15.2 - Hypertension secondary to endocrine disorders History of Present Illness History of Present Illness Chief Complaint: intractable back pain Narrative: 57-year-old female with history of breast cancer status post bilateral mastectomies, hypertension, hyperaldosteronism, hyperparathyroidism status post parathyroidectomy, JACQUELYN, OA, recent left TKA about 1 month ago has been in outpatient physical therapy ambulating with crutches. She states she started with acute lower back pain that began last (3 days ago) initially this started while she was getting ready for work and she took a hot shower hoping that this will calm down she uses Tylenol and ibuprofen but when the pain got progressively worse overnight by Sunday morning she was in exquisite pain unable to ambulate and actually fell. She has had radicular pain down her right leg to about the level of her knee. No numbness or tingling in her feet. She denies any recent fevers or chills. Patient presented to the emergency department initially on 05/18/2023 She had imaging of her pelvis and her thoracic and lumbar spine. Pelvic CT showed no acute abnormality. Thoracic and lumbar spine showed degenerative changes with mild disc bulging at L2-3, narrowing of the L3-4 disc space with the centricity towards the right with endplate osteophytes and minimal disc bulging. There is some right neural foraminal narrowing but no paraspinal hematoma. She had mild disc bulging at L4-5 with facet joint degenerative changes and ligamentous hypertrophy causing mild central canal stenosis and mild disc bulging at L5-S1 with mild bilateral neural foraminal narrowing. Incidental finding clued a 6 mm nonobstructing stone in her left upper pole of her kidney. On 05/18/2023 she was discharged from the emergency department with prescription for lidocaine patches methocarbamol and Valium. Patient Thony presented to the emergency department today because of worsening pain and inability to ambulate. She is able to move her right leg but it is painful and she is not able to climb stairs or to ambulate on her own. There is no numbness of her right foot but there is pain radiating from her right buttock down to the right leg to about the level of her knee. In the emergency department today she was treated with IV Tylenol and IV Decadron and given a dose of Dilaudid 0.5 mg IV push. This is given her some significant pain relief but she is still not able to ambulate without exquisite pain and not able to transfer out of bed. Laboratory studies today showed an elevated white cell count of 12,300 and elevated CRP of 8.9. Patient is now admitted for further evaluation including MRI of her lumbosacral spine to rule out discitis versus ruptured disc versus degenerative disc disease with possible nerve impingement. She has no symptoms of cauda equina such as bowel incontinence or bladder incontinence and no perineal paresthesias. She will be admitted on observation status where she will receive muscle relaxants Tylenol oral narcotic analgesics as well as IV narcotic analgesics for breakthrough pain and physical therapy and corticosteroids. MRI scan with and without contrast to be performed in the morning to rule out an epidural abscess or discitis. Review of Systems All systems reviewed & are unremarkable except as noted in HPI and below PFSH All Active Problems (Updated 05/20/23 @ 20:44 by Flex Wilkerson MD) Intractable back pain (Acute) Severe back pain (Acute) Left ACL tear (Acute ~03/2020) Acute lateral meniscal injury of left knee (Acute) Acute medial meniscus tear of left knee (Acute ~10/07/22) Brain aneurysm (Acute) External hemorrhoids (Acute) Sessile colonic polyp (Acute) Tubular adenoma of colon (Acute) JACQUELYN (obstructive sleep apnea) (Chronic) Screening for colon cancer (Acute) Medical History Lichen simplex chronicus Exophthalmos History of left breast cancer Sciatica Prediabetes Chronic kidney disease Peripheral neuropathy Lymphedema Left arm Hyperaldosteronism Right rotator cuff tendonitis Right lateral epicondylitis Trigger ring finger of right hand Biceps tendinitis of right shoulder s/p right shoulder arthroscopy DOS: 12/12/19 Arthritis of right acromioclavicular joint s/p right shoulder arthroscopy DOS: 12/12/19 Vulvar rash (12/11/13) lichen simplex chronicus, w/ features of psoriasis which pt has on hands and elsewhere. treated w/ steroids Tinnitus (10/27/15) Left ureteral stone (03/02/17) Irregular bleeding (05/14/14) currently treated w/ POPs, to amenorhea History of hyperparathyroidism (03/02/17) Bursitis of shoulder (12/30/12) Bilateral kidney stones (03/02/17) Abnormal auditory perception (10/27/15) Obesity Hypertension Psoriasis Proteinuria Impaired fasting glucose Kidney stone Hyperlipidemia Herpes, genital Fibrocystic breast Depression Attention deficit disorder (ADD) Hypomagnesemia Hx of hypoparathyroidism History of hypothyroidism Psoriasis Breast cancer Seroma complicating a procedure Leukocytosis Hypokalemia Surgical History Brain surgery within last 3 months Hx of knee surgery History of ankle surgery Left Hx of shoulder surgery Left Hx of bilateral mastectomy Hx of shoulder surgery L arm clavicle and muscle Rotator cuff tear, right s/p right shoulder arthroscopy with arthroscopic biceps tenodesis DOS: 12/12/19 RIGHT THUMB ARTHROPLASTY (01/27/15) DR. KANG Colonoscopy - MAC (~02/2021) Family History Mother Lymphoma Social History Smoking/Tobacco Use Status: Former Tobacco Use Quit Date: 02/20/92 Smoking risk assessment performed?: Yes Alcohol Intake: current Alcohol Intake frequency: a few times a week Drug use: Never Substance use type: does not use Housing: house Current gender identity: female Seatbelt use: always Do you feel safe at home: Yes Do you feel safe in your relationship?: Yes Meds Allergies and Home Medications Allergies Allergy/AdvReac Type Severity Reaction Status Date / Time sertraline [From Zoloft] Allergy Skin Rash Verified 05/20/23 13:20 Penicillins AdvReac Intermediate Thrush Verified 05/20/23 13:20 Home Medications Medication Instructions Recorded Confirmed Type diltiazem HCl 240 mg 240 mg PO HS 01/06/13 05/20/23 History capsule,extended release 24 hr fluoxetine 40 mg capsule (Prozac) 40 mg PO DAILY 01/06/13 05/20/23 History cholecalciferol (vitamin D3) 25 1,000 units PO DAILY 03/06/13 05/20/23 History mcg (1,000 unit) tablet ferrous sulfate 325 mg (65 mg 1 tab PO DAILY 01/26/14 05/20/23 History iron) tablet (Feosol) losartan 25 mg tablet 100 mg PO DAILY 10/24/17 05/20/23 History gabapentin 300 mg capsule 300 mg PO BID 07/27/19 05/20/23 History spironolactone 25 mg tablet 25 mg PO DAILY 07/27/19 05/20/23 History ustekinumab 45 mg/0.5 mL 45 mg subcut Q12W 08/05/19 05/20/23 History subcutaneous solution (Stelara) clobetasol 0.05 % topical cream 1 applic topical DAILY 09/24/20 05/20/23 History rosuvastatin 10 mg tablet (Crestor) 10 mg PO DAILY 09/24/20 05/20/23 History exemestane 25 mg tablet 25 mg PO DAILY 12/22/20 05/20/23 History calcium carbonate 600 mg calcium 600 mg PO DAILY 12/06/21 05/20/23 History (1,500 mg) tablet (Calcium) aspirin 81 mg tablet,delayed 81 mg PO DAILY 09/19/22 05/20/23 History release diazepam 5 mg tablet (Valium) 5 mg PO TID PRN muscle spasm #9 05/18/23 05/20/23 Rx tabs lidocaine 5 % topical patch 2 patch topical DAILY #15 ea 05/18/23 05/20/23 Rx methocarbamol 500 mg tablet 1,000 mg (2 x 500 mg) PO TID PRN 05/18/23 05/20/23 Rx spasms #30 tabs Exam Narrative Exam Narrative: Obese white female [facility] in [facility] emergency department eating her dinner. She is alert and orient x 3 she appears to be uncomfortable but no distress. She is pleasant and cooperative answers questions appropriately. HEENT is unremarkable Neck supple no JVD normal carotid pulses Lungs clear Heart regular rate and rhythm Abdomen soft nontender normal bowel sounds no palpable masses or organomegaly Lower extremities no peripheral cyanosis or edema Motor strength normal range of motion upper extremities lower extremities she has normal dorsiflexion plantarflexion of the right foot cannot really assess hip flexors and extensors due to the extensive pain with this because they are in her lower back. She has normal range of motion and strength in her left leg. She has a healing scar of the left knee from left previous TKA there are some mild edema of her left knee but no erythema or induration. Pedal pulses are intact Back exam reveals scarring in the right and left lower lateral thoracic areas in the flank from previous surgery. She has tenderness to palpation in the lower lumbar region over the vertebral vertebra as well as along the right paralumbar region. No pain over the left paralumbar region. Results Labs 05/20/23 14:38 05/20/23 14:38 Labs: Laboratory Results - last 24 hr 05/20/23 14:38 WBC 12.31 H RBC 4.09 Hgb 12.7 Hct 39.2 MCV 96 H MCH 31.1 MCHC 32.4 RDW 13.6 Plt Count 347 MPV 9.5 Immature Gran % 0.4 Neutrophils % 71.6 Lymphocytes % 14.9 Monocytes % 10.6 Eosinophils % 1.6 Basophils % 0.9 Nucleated RBC % 0.0 Absolute Neutrophils 8.81 H Absolute Lymphocytes 1.83 Absolute Monocytes 1.30 H Absolute Eosinophils 0.20 Absolute Basophils 0.11 ESR 63 H Sodium 141 Potassium 3.9 Chloride 105 Carbon Dioxide 24.4 Anion Gap 11.6 H BUN 39 H Creatinine 1.9 H Est GFR (CKD-EPI 2020) 30.04 Glucose 78 Calcium 9.0 Total Bilirubin 0.6 AST 13 L ALT 23 Alkaline Phosphatase 117 H C-Reactive Protein 8.98 H Total Protein 8.2 Albumin 3.6 Last Vital Signs Temp 37 C 05/20/23 13:13 Pulse 82 05/20/23 13:13 Resp 16 05/20/23 13:13 BP 114/79 05/20/23 13:13 Pulse Ox 97 05/20/23 13:13 PAWSS Have you Been Recently Intoxicated or Drunk Within the Last 30 days?: No Have you Ever Experienced Previous Episodes of Alcohol Withdrawal?: No Have you ever Experienced Withdrawal Seizures?: No Have you ever Experienced Delirium Tremens(DT)s?: No Have you ever undergone Alcohol Rehabilitation Treatment (i.e, inpt ot outpatient treatment programs)?: No Have you ever Experienced Blackouts?: No Have you ever Combined Alcohol with other Downers within the last 90 days?: No Have you ever Combined Alcohol with any other Substance of Abuse during the last 90 days?: No Result: 0 Time Spent Time spent with Patient: 40-54 minutes Time was spent: preparing to see the patient(eg.review tests), obtaining and/or reviewing separately otained hiistory, ordering medications,tests, procedures, referring, communicating with other health inpatient care manager rn, indepentently interpreting results, counseling the patient and care coordination
[2023-05-20 18:07] VITALS: BP 114/79; PULSE 82; RESP 16; TEMP 37; O2SAT 97
[2023-05-20 18:24] VITALS: BP 123/76; PULSE 75; RESP 18; TEMP 36.6; O2SAT 97
[2023-05-20] MEDS: Methocarbamol 500 MG TAB 1000 MG PO ×2 (18:41→22:21)
[2023-05-20] MEDS: Gabapentin 300 MG CAP PO (22:21)
[2023-05-20] MEDS: dilTIAZem CD 120 MG CAPCR 240 MG PO (22:21)
[2023-05-20] MEDS: Docusate Sodium 100 MG CAP PO (22:22)
[2023-05-20] MEDS: Polyethylene Glycol 3350 17 GM PACKET PO (22:22)
[2023-05-20] MEDS: Heparin 5,000 UNITS/ML VIAL 5000 UNITS SC (22:24)
[2023-05-20] MEDS: Normal Saline Flush 10 ML SYR IVP (22:25)
[2023-05-20 22:57] VITALS: BP 131/94; PULSE 72; RESP 16; TEMP 36; O2SAT 94
[2023-05-21 04:20] VITALS: BP 122/88; PULSE 65; RESP 18; O2SAT 93
[2023-05-21] MEDS: ACETAMINOPHEN 1,000 MG/100 ML BTL 400 MG IVPB (04:20)
[2023-05-21] MEDS: Heparin 5,000 UNITS/ML VIAL 5000 UNITS SC ×3 (04:21→20:32)
--- NOTE | 2023-05-21 08:00 | DI.MRI_ITS ---
Exam(s) MR LUMBAR SPINE WO/W EXAM: MR LUMBAR SPINE WO/W CLINICAL HISTORY: acute back pain, r/o discitis. TECHNIQUE: Multiplanar multisequence MRI of the Lumbar Spine was performed. CONTRAST MATERIAL: IV Contrast: 17 mL of Dotarem contrast administered. COMPARISON: CT RENAL COLIC WO CONTRAST from 02/06/[address] THORACIC LUMBAR SPINE WO from 05/18/2023 FINDINGS: Bones: The last intervertebral disc space is designated the L5/S1 level for the numbering purpose of this examination. The vertebral body heights are well maintained. Alignment is satisfactory. There i s hyperintense signal seen on the T2 weighted images in the L3-L4 disc space. Also at this level mil d degenerative endplate signal changes are seen. There is also mild diffuse disc bulge. There is lo ss of height of the disc space at this level. The irregularity of the inferior cortex of L3 is uncha nged dating back to the CT scan from 02/06/2017. There are degenerative changes of the facets seen a t L4-L5. Cord: The conus tip ends at the T12 level. It is of normal size and signal intensity. T12-L1: No disc herniations or bulges are present. No central spinal canal or neural foraminal stenos is. L1-2: No disc herniations or bulges are present. No central spinal canal or neural foraminal stenosis . L2-3: No disc herniations or bulges are present. No central spinal canal or neural foraminal stenosis . L3-4: There is a mild diffuse disc bulge. No significant central spinal canal stenosis is seen. No abnormal fluid collection is seen in the adjacent soft tissues. Mild bilateral neural foraminal sten osis is seen, right greater than left. L4-5: Facet. No significant central spinal canal stenosis is seen. No right neural foraminal stenos is. There is [id number] left neural foraminal stenosis. L5-S1: No disc herniations or bulges are present. There are degenerative changes of the facets, left greater than right. No significant central spinal canal stenosis is seen. There is no right neural foraminal stenosis. There is mild narrowing of the left neural foramen. Soft tissues: The visualized SI joints and sacrum are well maintained. Bilateral simple renal cysts a re seen. No follow-up is recommended. There is a 1 x 0.7 cm peripherally enhancing fluid collection in the paraspinal soft tissues posterio r to the left L5-S1 facet joint. (Series [id number] image 13). This may represent a synovial cyst or an abscess. There is no abnormal enhancement seen in the L3-4 disc space. There is mild enhancement at the inferior endplate of L3 and the superior endplate of L4. This may be degenerative in nature. N o enhancing fluid collection is seen in the soft tissues adjacent to the L3-L4 disc space. IMPRESSION: 1. 1 x 0.7 cm peripherally enhancing fluid collection in the paraspinal soft tissues posterior to the left L5-S1 facet joint. This may represent a synovial cyst or abscess. 2. Multilevel degenerative changes in the lumbar spine from L3-4 through L5-S1. No significant centr al spinal canal stenosis. Varying degrees of neural foraminal stenosis is seen. Please see the abov e discussion for level by level details. 3. T2 hyperintense signal seen in the L3-4 disc but no abnormal enhancement is seen following contras t administration. No fluid collection is seen in the paraspinal soft tissues around L3-4 to suggest an abscess. If symptoms persist, a follow-up MRI of the lumbar spine should be considered for re-duncan luation. DATA REPOSITORY:
[2023-05-21 08:26] VITALS: BP 121/85; PULSE 69; RESP 17; TEMP 36.7; O2SAT 95
[2023-05-21 08:34] LABS: Bilirubin Negative (Negative); Blood Negative (Negative); Clarity Clear (Clear); Glucose 100 mg/dL (Negative); Ketones Negative (Negative); Leukocyte Esterase Negative (Negative); Nitrite Negative (Negative); Urobilinogen 0.2 mg/dL (Up to 0.2); pH 5.5 (5-8)
[2023-05-21 08:42] LABS: Bacteria Negative HPF (Negative); C & S Indicated? No; Casts 5-10 Hyaline LPF (Negative); Crystals Negative HPF (Negative); Epithelial Cells Few HPF (Negative); Mucus Negative (Negative); RBC Negative HPF (0-2); WBC Negative HPF (0-5)
[2023-05-21] MEDS: Docusate Sodium 100 MG CAP PO ×3 (08:46→20:33)
[2023-05-21] MEDS: Lidocaine 5% Patch 2 PATCH TP (08:46)
[2023-05-21] MEDS: Pantoprazole 40 MG TABCR PO (08:46)
[2023-05-21] MEDS: Spironolactone 25 MG TAB PO (08:46)
[2023-05-21] MEDS: Cholecalciferol (Vitamin D3) 1,000 UNIT TAB 1000 UNITS PO (08:46)
[2023-05-21] MEDS: Methocarbamol 500 MG TAB 1000 MG PO ×3 (08:46→20:33)
[2023-05-21] MEDS: predniSONE 20 MG TAB 40 MG PO (08:47)
[2023-05-21] MEDS: Gabapentin 300 MG CAP PO ×2 (08:47→20:33)
[2023-05-21] MEDS: FLUoxetine 20 MG CAP 40 MG PO (08:47)
[2023-05-21] MEDS: Calcium Carbonate 1.5 GM TAB PO (08:47)
[2023-05-21] MEDS: Ferrous Sulfate 325 MG TAB PO (08:47)
[2023-05-21] MEDS: Losartan 25 MG TAB 100 MG PO (08:47)
[2023-05-21] MEDS: Rosuvastatin 10 MG TAB PO (08:47)
[2023-05-21] MEDS: Normal Saline Flush 10 ML SYR IVP ×3 (08:49→20:37)
--- NOTE | 2023-05-21 08:53 | PDOC.CMIN ---
Date of service: 05/21/23 Time of Service: 08:53 Care Management Initial Assmt Initial Assessment REASON FOR HOSPITALIZATION:: intractable back pain PREVIOUS FUNCTIONAL STATUS/SOCIAL/FAMILY SUPPORTS:: Wendy lives in a single family home in [place], [place] with her Phillip and their son. They also have a daughter who lives in [place]. 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 Wendy is independent at baseline and does not receive any community services. CURRENT FUNCTIONAL STATUS:: Wendy was sitting up in a chair when CM met with her. She was pleasant and engaged easily with CM. Wendy stated that she is feeling much better. She is now able to ambulate with a walker and her pain is better controlled. She will possibly be discharged later today. 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 Wendy stated that while there are a lot of benefits to working from home, such as being with her dogs and not having to leave the house in bad weather, it is also challenging being with the same people all day every day without the ability to socialize outside of the home in a work setting. ADVANCE DIRECTIVES:: none Has patient been provided with info about the portal/API?: Yes Did the patient sign up for the portal?: Yes CODE STATUS:: Full Code INSURANCE COVERAGE / FINANCIAL ISSUES:: [employer] PRIMARY CARE PHYSICIAN:: Trinh Coates POTENTIAL DISCHARGE NEEDS:: follow up appointments PATIENT/FAMILY EDUCATION NEEDS:: Review of discharge instructions, activity, limitations, pain control, discuss Ask Me Three TRANSPORTATION:: via private vehicle with family PLAN:: Anticipate Wendy will be discharged home with no new services. She will follow up with her community providers and plan of care and transport with family. CM will follow and continue to assess for discharge needs. PFSH All Active Problems (Updated 05/20/23 @ 20:44 by Felx Wilkerson MD) Intractable back pain (Acute) Severe back pain (Acute) Left ACL tear (Acute ~03/2020) Acute lateral meniscal injury of left knee (Acute) Acute medial meniscus tear of left knee (Acute ~10/07/22) Brain aneurysm (Acute) External hemorrhoids (Acute) Sessile colonic polyp (Acute) Tubular adenoma of colon (Acute) JACQUELYN (obstructive sleep apnea) (Chronic) Screening for colon cancer (Acute) Medical History Lichen simplex chronicus Exophthalmos History of left breast cancer Sciatica Prediabetes Chronic kidney disease Peripheral neuropathy Lymphedema Left arm Hyperaldosteronism Right rotator cuff tendonitis Right lateral epicondylitis Trigger ring finger of right hand Biceps tendinitis of right shoulder s/p right shoulder arthroscopy DOS: 12/12/19 Arthritis of right acromioclavicular joint s/p right shoulder arthroscopy DOS: 12/12/19 Vulvar rash (12/11/13) lichen simplex chronicus, w/ features of psoriasis which pt has on hands and elsewhere. treated w/ steroids Tinnitus (10/27/15) Left ureteral stone (03/02/17) Irregular bleeding (05/14/14) currently treated w/ POPs, to amenorhea History of hyperparathyroidism (03/02/17) Bursitis of shoulder (12/30/12) Bilateral kidney stones (03/02/17) Abnormal auditory perception (10/27/15) Obesity Hypertension Psoriasis Proteinuria Impaired fasting glucose Kidney stone Hyperlipidemia Herpes, genital Fibrocystic breast Depression Attention deficit disorder (ADD) Hypomagnesemia Hx of hypoparathyroidism History of hypothyroidism Psoriasis Breast cancer Seroma complicating a procedure Leukocytosis Hypokalemia Surgical History Brain surgery within last 3 months Hx of knee surgery History of ankle surgery Left Hx of shoulder surgery Left Hx of bilateral mastectomy Hx of shoulder surgery L arm clavicle and muscle Rotator cuff tear, right s/p right shoulder arthroscopy with arthroscopic biceps tenodesis DOS: 12/12/19 RIGHT THUMB ARTHROPLASTY (01/27/15) DR. KANG Colonoscopy - MAC (~02/2021) Family History Mother Lymphoma Social History Smoking/Tobacco Use Status: Former Tobacco Use Quit Date: 02/20/92 Smoking risk assessment performed?: Yes Alcohol Intake: current Alcohol Intake frequency: a few times a week Drug use: Never Substance use type: does not use Housing: house Current gender identity: female Seatbelt use: always Do you feel safe at home: Yes Do you feel safe in your relationship?: Yes SDOH(Care Management) Screening Will the Patient Participate in the Screening?: Declined to provide
[2023-05-21] MEDS: Gadoterate meglumine 20 ML VIAL IVP (09:50)
[2023-05-21] MEDS: Acetaminophen 500 MG TAB 1000 MG PO ×3 (10:31→20:33)
[2023-05-21] MEDS: diazePAM 5 MG TAB PO (10:42)
--- NOTE | 2023-05-21 11:08 | IN_ITS ---
PT Notes Visit Reasons: Intractable Back Pain, R/O Discitis Physical Therapy Inpatient Initial Evaluation Date: 05/21/2023 Referring Doctor: Flex Wilkerson MD PT Orders: PT CONSULT: Safety consult for DC Precautions: Fall. Standard. Activity as tolerated. Lymphedema in the L UE. Patient Profile/Admitting Diagnosis: Wendy is a 57-year-old female with past medical history significant for sciatica who presented to the ED on 05/18/2023 due to severe back pain mostly in her right lower back that radiates down to below her right buttock. She also fell on Sunday onto her right hip because of her pain level that prompted her to go to the ED. She presented again at the ED on 05/20/2023 due to persistent right-sided low back pain. Patient is admitted for management of intractable low back pain, hyperaldosterone anemia hypertension, and recent TKA 1 month ago and is currently receiving outpatient physical therapy for it. PMHX: All Active Problems (Updated 05/20/23 @ 20:44 by Flex Wilkerson MD) Intractable back pain (Acute) Severe back pain (Acute) Left ACL tear (Acute ~03/2020) Acute lateral meniscal injury of left knee (Acute) Acute medial meniscus tear of left knee (Acute ~10/07/22) Brain aneurysm (Acute) External hemorrhoids (Acute) Sessile colonic polyp (Acute) Tubular adenoma of colon (Acute) JACQUELYN (obstructive sleep apnea) (Chronic) Screening for colon cancer (Acute) Medical History Lichen simplex chronicus Exophthalmos History of left breast cancer Sciatica Prediabetes Chronic kidney disease Peripheral neuropathy Lymphedema Left armHyperaldosteronism Right rotator cuff tendonitis Right lateral epicondylitis Trigger ring finger of right hand Biceps tendinitis of right shoulder s/p right shoulder arthroscopy DOS: 12/12/19 Arthritis of right acromioclavicular joint s/p right shoulder arthroscopy DOS: 12/12/19Vulvar rash (12/11/13) lichen simplex chronicus, w/ features of psoriasis which pt has on hands and elsewhere. treated w/ steroids Tinnitus (10/27/15) Left ureteral stone (03/02/17) Irregular bleeding (05/14/14) currently treated w/ POPs, to amenorhea History of hyperparathyroidism (03/02/17) Bursitis of shoulder (12/30/12) Bilateral kidney stones (03/02/17) Abnormal auditory perception (10/27/15) Obesity Hypertension Psoriasis Proteinuria Impaired fasting glucose Kidney stone Hyperlipidemia Herpes, genital Fibrocystic breast Depression Attention deficit disorder (ADD) Hypomagnesemia Hx of hypoparathyroidism History of hypothyroidism Psoriasis Breast cancer Seroma complicating a procedure Leukocytosis Hypokalemia May need to have a-year-old can Surgical History Brain surgery within last 3 months Hx of knee surgery History of ankle surgery Left Hx of shoulder surgery Left Hx of bilateral mastectomy Hx of shoulder surgery L arm clavicle and muscleRotator cuff tear, right s/p right shoulder arthroscopy with arthroscopic biceps tenodesis DOS: 12/12/19RIGHT THUMB ARTHROPLASTY (01/27/15) DR. ALCANTAR Colonoscopy - [facility] (~02/2021) Social History/Home Situation: Equipment Owned/DME: Lives with and son in a private home with 2 steps to enter. Son works during the day. Has used bilateral axillary crutches in the past 3 days due to worsening low back pain. Subjective: Patient reports to 7/10 pain in the low back with weight bearing. She did verbalize that her pain level has subsided compared to last Sunday. Added that she just was diagnosed of of a brain aneurysm in February 2023 and has a stent in place. Objective: General Observation: Resting in bed. Son Phillip present in room and the start of evaluation. He can open that 100 Mental Status: Alert and oriented as to person, place, time, and purpose. Able to pay attention, focus, and respond appropriately. Pain: As above Vital Signs: Closely monitored by nursing ROM: Right Upper Extremity: Shoulder Flexion WFL. Shoulder abduction WFL. Elbow flexion WFL. Wrist flexion WFL. Functional opening and closing of hand WFL. Left Upper Extremity: Shoulder Flexion lacks the last 25% of AROM. Shoulder abduction lacks the last 25% of AROM. Elbow flexion WFL. Wrist flexion WFL. Functional opening and closing of hand WFL. Right Lower Extremity: Hip flexion allows up to 90 degrees only. SLR less than 10 degrees in supine. Hip abduction WFL. Knee flexion WFL. Ankle dorsiflexion WFL. Ankle plantarflexion WFL. Left Lower Extremity: Hip flexion WFL. Hip abduction WFL. SLR up to 80 degrees in supine.educated Knee flexion WFL. Ankle dorsiflexion WFL. Ankle plantarflexion WFL. Strength: Right Upper Extremity: Shoulder flexors 5/5. Shoulder abductors 5/5. Elbow flexors 5/5. Elbow extensors 5/5. Farm Marketer strong. Left Upper Extremity: Shoulder flexors 4-/5. Shoulder abductors 4-/5. Elbow flexors 4-/5. Elbow extensors 4-/5. Farm Marketer strong. Right Lower Extremity: Hip flexors 3-/5. Hip abductors 4-/5. Knee flexors 4-/5. Knee extensors 3-/5. Ankle dorsiflexors 4-/5. Ankle plantarflexors 4-/5. Left Lower Extremity: Hip flexors 5/5. Hip abductors 5/5. Knee flexors 5/5. Knee extensors 5/5. Ankle dorsiflexors 5/5. Ankle plantarflexors 5/5. Bed Mobility/Transfers: Minimal cueing provided for use of B hands as needed for support, movement sequence, AD management, and posture to reduce fall risk and minimize pain report Supine to sit contact guard assist with HOB at 45 degrees Sit to stand contact guard assist with FWW Stand to sit contact guard assist with FWW Bed to reclining chair contact guard assist with FWW Bed to toilet seat contact guard assist with FWW Gait: Facilitated safe and correct performance level surface ambulation covering a distance of 50 feet using front wheeled walker with step to gait pattern requiring contact-guard assist and minimal verbal cueing for posture, limb advancement, and AD management to reduce fall risk and minimize pain report. Balance: Static Sitting: Good Dynamic Sitting: Fair Static Standing: Fair Dynamic Standing: Poor Special Tests: Mobility Limitations Standardized Measure [facility] AM-PAC 6 clicks Basic Mobility Inpatient Short Form: Raw Score: 18 CMS Score: 47% deficit SLR on the R: less than 10 degrees due to pain FABERE: Negative Posterior pelvic tilt: Increased irritability of low back Anterior pelvic tilt: Increased irritability of low back Slump test: Deferred due to patient's pain level Informed Consent/Education: Patient was instructed in purpose of PT consult and plan of care. Agreeable to proceed with established PT POC to achieve personal goals. ASSESSMENT: Limited ability to assess due to high irritability of patient's symptoms with flexion and extension of trunk/B hips and knees. Did tolerate short distance ambulation with pain level reaching up to 7-8/10 which Nurse Hightower was updated about. Patient presents with clinical signs and symptoms consistent with current/admitting diagnoses that have resulted to mobility limitations, gait i nstability, generalized weakness, and overall ADL decline as demonstrated by the following impairment level findings: 1. Decreased strength R hip and knee major muscle groups 2. Impaired standing balance/toelrance 3. Impaired activity tolerance 4. Limitation of joint range of motion in R hip 5. Lymphedema of R UE (chronic) Impairments are contributing to the following functional limitations: 1. Decline in bed mobility skills 2. Decline in transfer skills 3. Difficulty with ambulation without assistive device and physical assistance 4. Increased completion time for mobility ADL performance 5. Increased risk for falls 6. Difficulty with managing steps alone safely Patient is assessed as a 75348 moderate complexity based on the following: History: 57-year-old female with past medical history as indicated above Examination: Demonstrable impairment in strength, balance, and mobility level with underlying impairments and functional limitations as exhibited above as well as deficit score of 47% utilizing the [facility] Mobility Inpatient Short Form Presentation: Evolving Decision Makin moderate complexity Goals: Goals X1 week 1. Supine-Sit independent 2. Sit-Supine independent 3. Sit-Stand independent 4. Stand-Sit independent with FWW 5. Bed-Chair independent with FWW 6. Chair-Bed independent with FWW 7. Independent gait on level surface with use of FWW for at least 150 feet without report of pain nor dyspnea 8. Independent stair negotiation while holding onto B rails for at least 2 steps without report of pain nor dyspnea 9. Independent with home exercise program 10. Good static and dynamic standing balance/tolerance Plan of Care/Treatment Plan: 1-2x/day, 7 days/week x 1 week. Plan of care has been reviewed with the LAY OUT WORKER providing the service under Physical Therapy direction. Initiate Physical Therapy intervention for pain management as needed, strengthening, bed mobility, transfers, gait, stairs, balance training, and use of assistive device. DISCHARGE RECOMMENDATIONS: [] Home with no services [] [] Home with services [specify] [X] Home with outpatient PT for continue L knee rehab and additional back rehab upon re-evaluation by outpatient PT. Will require refrral for lymphedema management for L UE. [] SNF for continued rehabilitation [] [] Detention Care [] [] SNF versus LTC based on ability to participate and progress [] TREATMENT CODE/TIME: 96810 x 20 minutes for 1 unit, 24245 x 14 minutes for 1 unit (11:08-11:46). Thank you for the opportunity to participate in the care of this patient. Ethel Theodore PT, DPT, CLT [facility] [place], [place]
--- NOTE | 2023-05-21 11:40 | DSE_ITS ---
Date of service: 05/21/23 Time of Service: 11:40 DS: Diagnosis Discharge Diagnosis (1) Intractable back pain: Status: Acute (2) Hyperaldosteronism: (3) Hypertension: Discharge Plan Disposition Patient Disposition: Home Condition: Stable Discharge Details Reason For Visit: Intractable Back Pain, R/O Discitis Admit Date/Time: 05/20/23 16:42 Admit Provider: Flex Wilkerson Attending Provider: Flex Wilkerson Primary Care Provider: Trinh Coates Home Meds and New Rx's Prescriptions: New polyethylene glycol 3350 17 gram Powder In Packet 17 g PO BID Qty: 0 0RF prednisone 20 mg Tablet 40 mg PO DAILY Qty: 8 0RF acetaminophen 500 mg Tablet 650 mg PO QID Qty: 0 0RF docusate sodium [Colace] 100 mg Capsule 100 mg PO TID Qty: 0 0RF Continued Stelara 45 mg/0.5 mL solution 45 mg SC Q12W Patient Comments: Pt states this was last received 12 weeks ago.HE calcium carbonate [Calcium 600] 600 mg calcium (1,500 mg) tablet 600 mg PO DAILY aspirin 81 mg tablet,delayed release (DR/EC) 81 mg PO DAILY fluoxetine [Prozac] 40 MG capsule 40 mg PO DAILY diltiazem HCl 240 MG capsule,extended release 24hr 240 mg PO HS rosuvastatin [Crestor] 10 mg tablet 10 mg PO DAILY clobetasol 0.05 % cream 1 applic topical DAILY PRN Patient Comments: not using currently 05/21/23 cholecalciferol (vitamin D3) 1,000 UNITS tablet 1,000 units PO DAILY ferrous sulfate [Feosol] 325 MG tablet 1 tab PO DAILY losartan 25 mg Tablet 100 mg PO DAILY spironolactone 25 mg tablet 25 mg PO DAILY Patient Comments: TAKE 1 TABLET BY MOUTH ONCE DAILY gabapentin 300 mg capsule 300 mg PO BID Patient Comments: TK 1 C PO IN THE MORNING AND HS exemestane 25 mg tablet 25 mg PO DAILY Patient Comments: TAKE 1 TABLET BY MOUTH DAILY lidocaine 5 % adhesive patch,medicated 2 patch topical DAILY Qty: 15 0RF Rx Instructions: leave on most painful area for up to 12 hrs methocarbamol 500 mg tablet 1,000 mg PO TID PRN (Reason: spasms) Qty: 30 0RF diazepam [Valium] 5 mg tablet 5 mg PO TID PRN (Reason: muscle spasm) Qty: 9 0RF Discharge Instructions Instructions: Back Pain (ED) Referrals: Trinh Coates MD [Primary Care Provider] - Activity:: Activity as Tolerated Equipment/Supplies:: No Equipment Needed Diet:: As Tolerated DS: Summary Quality:SDOH Health Related Social Needs: No Data to Display DS: Data Vitals/I&O Vitals and I&O: Vital Signs Temperature 36.7 C 05/21/23 08:26 Temperature Source Tympanic 05/21/23 08:26 Pulse 69 05/21/23 08:26 Pulse Rhythm Regular 05/20/23 22:00 Respiratory Rate 17 05/21/23 08:26 Respiratory Effort Normal, Non-Labored 05/20/23 22:00 Respiratory Depth Normal 05/20/23 22:00 Respiratory Pattern Normal 05/20/23 22:00 Blood Pressure 121/85 05/21/23 08:26 Blood Pressure Position Sitting 05/20/23 13:13 Pulse Oximetry 95 05/21/23 08:26 Oxygen Delivery Method Room Air 05/21/23 08:26 Oxygen Flow Rate 0 05/21/23 08:26 Pain Level 6 05/21/23 08:26 Intake & Output 05/20/23 05/20/23 05/21/23 11:59 23:59 11:59 Intake Total 300 / 300 110 / 110 Output Total 200 / 200 300 / 300 Balance 100 / 100 -190 / -190 Weight 83.915 kg Intake: IV 300 / 300 110 / 110 Output: Urine 200 / 200 300 / 300 Other: Urine Color Yellow Yellow Urine Appearance Clear Clear Voiding Methods Toilet Data Completed and Pending Labs on day of discharge: Labs from last 24 hours 05/21/23 05/20/23 08:00 14:38 WBC 12.31 H RBC 4.09 Hgb 12.7 Hct 39.2 MCV 96 H MCH 31.1 MCHC 32.4 RDW 13.6 Plt Count 347 MPV 9.5 Immature Gran % 0.4 Neutrophils % 71.6 Lymphocytes % 14.9 Monocytes % 10.6 Eosinophils % 1.6 Basophils % 0.9 Nucleated RBC % 0.0 Absolute Neutrophils 8.81 H Absolute Lymphocytes 1.83 Absolute Monocytes 1.30 H Absolute Eosinophils 0.20 Absolute Basophils 0.11 ESR 63 H Sodium 141 Potassium 3.9 Chloride 105 Carbon Dioxide 24.4 Anion Gap 11.6 H BUN 39 H Creatinine 1.9 H Est GFR (CKD-EPI 2020) 30.04 Glucose 78 Calcium 9.0 Total Bilirubin 0.6 AST 13 L ALT 23 Alkaline Phosphatase 117 H C-Reactive Protein 8.98 H Total Protein 8.2 Albumin 3.6 Urine Color Yellow Urine Clarity Clear Urine pH 5.5 Ur Specific [place] 1.020 Urine Protein 100 H Urine Ketones Negative Urine Blood Negative Urine Nitrite Negative Urine Bilirubin Negative Urine Urobilinogen 0.2 Ur Leukocyte Esterase Negative Urine RBC Negative Urine WBC Negative Ur Epithelial Cells Few Urine Crystals Negative Urine Bacteria Negative Urine Casts 5-10 Hyaline Urine Mucus Negative Ur Culture Indicated? No Urine Glucose 100 H 05/20/23 16:37 Blood Blood Culture - Pending 05/20/23 16:29 Blood Blood Culture - Pending Preliminary micro results at discharge 05/20/23 16:37 Blood Culture - Pending Blood 05/20/23 16:29 Blood Culture - Pending Blood PFSH All Active Problems (Updated 05/20/23 @ 20:44 by Flex Wilkerson MD) Intractable back pain (Acute) Severe back pain (Acute) Left ACL tear (Acute ~03/2020) Acute lateral meniscal injury of left knee (Acute) Acute medial meniscus tear of left knee (Acute ~10/07/22) Brain aneurysm (Acute) External hemorrhoids (Acute) Sessile colonic polyp (Acute) Tubular adenoma of colon (Acute) JACQUELYN (obstructive sleep apnea) (Chronic) Screening for colon cancer (Acute) Medical History Lichen simplex chronicus Exophthalmos History of left breast cancer Sciatica Prediabetes Chronic kidney disease Peripheral neuropathy Lymphedema Left arm Hyperaldosteronism Right rotator cuff tendonitis Right lateral epicondylitis Trigger ring finger of right hand Biceps tendinitis of right shoulder s/p right shoulder arthroscopy DOS: 12/12/19 Arthritis of right acromioclavicular joint s/p right shoulder arthroscopy DOS: 12/12/19 Vulvar rash (12/11/13) lichen simplex chronicus, w/ features of psoriasis which pt has on hands and elsewhere. treated w/ steroids Tinnitus (10/27/15) Left ureteral stone (03/02/17) Irregular bleeding (03/26/15) currently treated w/ POPs, to amenorhea History of hyperparathyroidism (03/02/17) Bursitis of shoulder (12/30/12) Bilateral kidney stones (03/02/17) Abnormal auditory perception (10/27/15) Obesity Hypertension Psoriasis Proteinuria Impaired fasting glucose Kidney stone Hyperlipidemia Herpes, genital Fibrocystic breast Depression Attention deficit disorder (ADD) Hypomagnesemia Hx of hypoparathyroidism History of hypothyroidism Psoriasis Breast cancer Seroma complicating a procedure Leukocytosis Hypokalemia Surgical History Brain surgery within last 3 months Hx of knee surgery History of ankle surgery Left Hx of shoulder surgery Left Hx of bilateral mastectomy Hx of shoulder surgery L arm clavicle and muscle Rotator cuff tear, right s/p right shoulder arthroscopy with arthroscopic biceps tenodesis DOS: 12/12/19 RIGHT THUMB ARTHROPLASTY (01/27/15) [facility] [place] Family History Mother Lymphoma Social History Smoking/Tobacco Use Status: Former Tobacco Use Quit Date: 02/20/92 Smoking risk assessment performed?: Yes Alcohol Intake: current Alcohol Intake frequency: a few times a week Drug use: Never Substance use type: does not use Housing: house Current gender identity: female Seatbelt use: always Do you feel safe at home: Yes Do you feel safe in your relationship?: Yes
[2023-05-21] MEDS: oxyCODONE 5 MG TAB PO ×2 (12:50→19:11)
--- NOTE | 2023-05-21 14:38 | PTTR_ITS ---
PT Notes Visit Reasons: Intractable Back Pain, R/O Discitis Inpatient Physical Therapy Treatment Note [facility] Date: 05/21/23 SUBJECTIVE: Wendy states that she is feeling better than she did at admission. She is hoping to go home as soon as [facility] reads her MRI. She reports her biggest issue is st bearing through her right LE as well as flexing at the hip. OBJECTIVE: []? PAIN: right sided low back. Did not rate it. VITALS: ?monitored by nursing. Therapeutic Activities ([id number]): Direct one-on-one instruction in dynamic activities to improve functional performance. ? BED MOBILITY/TRANSFERS? Sit-supine: min assist with R LE.? Sit-stand:SBA? Stand-sit: SBA? Chair-bed: SBA Provided skilled cues and instruction on performance and technique throughout.? Cues to engage core and glutes with change of position. ? GAIT? Assistive Device: FWW? Weight bearing: AT Assist: SBA ? Distance:? approx 40'x2 ? Deviation: slow radha. step to gait pattern. She was toileted with S. Independent abdiaziz care.? ASSESSMENT:? good effort given with PT. Pain limits her functional mobility...mostly into flexion of the right hip. Extension significantly decreases her pain. PLAN: continue progressing her functional mobility to tolerance. TREATMENT CODE/TIME: 20 min. [id number]. [id number].
[2023-05-21 15:44] VITALS: BP 134/83; PULSE 73; RESP 18; TEMP 36.7; O2SAT 93
--- NOTE | 2023-05-21 16:18 | W.PM.PROGNOT ---
Date of Service Date of service: 05/21/23 Time of Service: 16:18 Assessment and Plan Assessment and plan (1) Intractable back pain: Status: Acute Assessment and plan: Findings from MRI discussed with neurosurgery at [facility] they feel the area of concern most likely inflammation and agreed to continue steroids at this point. We should follow her inflammatory markers monitor for signs of fever or infection. She is responding to current pain management will continue as scheduled with aggressive bowel management PT OT. (2) Hyperaldosteronism: Assessment and plan: Continue aldosterone and losartan for her blood pressure (3) Hypertension: Assessment and plan: As above Discussed with Qualifiers: Hypertension type: secondary to endocrine disorders Qualified Code(s): I15.2 - Hypertension secondary to endocrine disorders Subjective Subjective Patient reports: still having pain, pain is less, tolerating liquids well, tolerating a regular diet and afebrile; denies shortness of breath Exam Narrative Exam Narrative: White female older appearing than stated age chronically ill-appearing head is atraumatic eyes nonicteric noninjected neck is supple with no JVD cardiovascular regular rate and rhythm respirations even and unlabored abdomen benign moves all extremities equally sensation intact to bilateral lower extremities strength equal. Denies any saddle anesthesia no bowel or bladder incontinence or retention. Objective Last Vital Signs Temp 36.7 C 05/21/23 15:44 Pulse 73 05/21/23 15:44 Resp 18 05/21/23 15:44 BP 134/83 05/21/23 15:44 Pulse Ox 93 05/21/23 15:44 Laboratory Results - last 24 hr 05/21/23 08:00 Urine Color Yellow Urine Clarity Clear Urine pH 5.5 Ur Specific [place] 1.020 Urine Protein 100 H Urine Ketones Negative Urine Blood Negative Urine Nitrite Negative Urine Bilirubin Negative Urine Urobilinogen 0.2 Ur Leukocyte Esterase Negative Urine RBC Negative Urine WBC Negative Ur Epithelial Cells Few Urine Crystals Negative Urine Bacteria Negative Urine Casts 5-10 Hyaline Urine Mucus Negative Ur Culture Indicated? No Urine Glucose 100 H PAWSS Have you Been Recently Intoxicated or Drunk Within the Last 30 days?: No Have you Ever Experienced Previous Episodes of Alcohol Withdrawal?: No Have you ever Experienced Withdrawal Seizures?: No Have you ever Experienced Delirium Tremens(DT)s?: No Have you ever undergone Alcohol Rehabilitation Treatment (i.e, inpt ot outpatient treatment programs)?: No Have you ever Experienced Blackouts?: No Have you ever Combined Alcohol with other Downers within the last 90 days?: No Have you ever Combined Alcohol with any other Substance of Abuse during the last 90 days?: No Result: 0 Time Spent with Patient Time Spent with Patient: 35-49 minutes Time was spent: preparing to see the patient(eg.review tests), obtaining and/or reviewing separately otained hiistory, ordering medications,tests, procedures, referring, communicating with other health senior resident care director, indepentently interpreting results and counseling the patient
[2023-05-21 17:57] LABS: Abs Immature Grans 0.15 10^3/uL (0.0-0.06); Absolute Basophil Count 0.02 10^3/uL (0.0-0.2); Absolute Lymphocyte Count 1.12 10^3/uL (1.2-3.4); Absolute Monocyte Count 0.77 10^3/uL (0.1-0.8); Basophils % 0.1; HCT 33.8 % (36.0-46.0); HGB 11.1 g/dL (11.2-15.7); Immature Grans % 0.9; Lymphocytes % 6.8; MCHC 32.8 % (32.0-36.0); MCV 94 fL (80-95); MPV 9.2 fL (8.0-11.0); Monocytes % 4.7; Neutrophils % 87.5; Platelet Count 332 10^3/uL (130-400); RBC 3.58 10^6/uL (3.93-5.22); RDW 13.2 % (11.7-14.6); RDW-SD 45.6 fL; WBC 16.46 10^3/uL (4.4-10.8)
[2023-05-21 18:15] LABS: ALT 29 U/L (14-59); AST 19 U/L (15-37); Albumin 2.8 g/dL (3.4-5.0); Alkaline Phosphatase 101 U/L (46-116); Anion Gap 13.3 mmol/L (3-11); BUN 42 mg/dL (7-18); Bilirubin, Total 0.4 mg/dL (0.2-1.0); C-Reactive Protein 5.85 mg/dL (<or=0.5); CO2 20.7 mmol/L (21.0-32.0); CREATININE 1.9 mg/dL (0.55-1.02); Calcium 8.6 mg/dL (8.5-10.1); Chloride 105 mmol/L (98-107); Estimated GFR 30.04 (mL/min/1.73m2); Glucose 275 mg/dL (74-106); Potassium 4.5 mmol/L (3.5-5.1); Sodium 139 mmol/L (136-145); Total Protein 6.9 g/dL (6.4-8.2)
[2023-05-21] MEDS: dilTIAZem CD 120 MG CAPCR 240 MG PO (20:33)
[2023-05-21] MEDS: Senna TAB 1 TAB PO (20:33)
[2023-05-21] MEDS: Polyethylene Glycol 3350 17 GM PACKET PO (20:34)
--- NOTE | 2023-05-21 21:01 | RESPIRATORY ---
RT spoke with pt. for JACQUELYN diagnosis. Pt. states that she uses a CPAP machine called [employer] but pt. did not bring it here in the hospital. Pt. refused to use hospital's CPAP machine by saying she will be okay without it. Pt. also advised Rt that a family member will be bringing it by tomorrow if she is going to stay more nights in the hospital.
[2023-05-21 23:36] VITALS: BP 149/79; PULSE 78; RESP 19; TEMP 36.3; O2SAT 93
[2023-05-22] MEDS: Acetaminophen 500 MG TAB 1000 MG PO ×3 (04:03→20:06)
[2023-05-22] MEDS: diazePAM 5 MG TAB PO ×3 (04:04→23:46)
[2023-05-22] MEDS: oxyCODONE 5 MG TAB PO ×3 (04:04→23:46)
[2023-05-22] MEDS: Heparin 5,000 UNITS/ML VIAL 5000 UNITS SC ×3 (04:04→20:05)
[2023-05-22 07:47] VITALS: BP 139/74; PULSE 64; RESP 18; TEMP 35.9; O2SAT 93
[2023-05-22] MEDS: Polyethylene Glycol 3350 17 GM PACKET PO ×2 (08:08→20:04)
[2023-05-22] MEDS: Losartan 25 MG TAB 100 MG PO (08:09)
[2023-05-22] MEDS: Gabapentin 300 MG CAP PO ×2 (08:10→20:07)
[2023-05-22] MEDS: Calcium Carbonate 1.5 GM TAB PO (08:10)
[2023-05-22] MEDS: Rosuvastatin 10 MG TAB PO (08:10)
[2023-05-22] MEDS: Cholecalciferol (Vitamin D3) 1,000 UNIT TAB 1000 UNITS PO (08:10)
[2023-05-22] MEDS: Methocarbamol 500 MG TAB 1000 MG PO ×3 (08:10→20:06)
[2023-05-22] MEDS: predniSONE 20 MG TAB 40 MG PO (08:10)
[2023-05-22] MEDS: FLUoxetine 20 MG CAP 40 MG PO (08:11)
[2023-05-22] MEDS: Docusate Sodium 100 MG CAP PO ×3 (08:11→20:07)
[2023-05-22] MEDS: Pantoprazole 40 MG TABCR PO (08:11)
[2023-05-22] MEDS: Spironolactone 25 MG TAB PO (08:11)
[2023-05-22] MEDS: Ferrous Sulfate 325 MG TAB PO (08:11)
[2023-05-22] MEDS: Normal Saline Flush 10 ML SYR IVP (08:26)
--- NOTE | 2023-05-22 11:21 | PT.INTREAT ---
PT Notes Visit Reasons: Intractable Back Pain, R/O Discitis Physical Therapy Inpatient Treatment Note Date: 05/22/2023 Precautions: Fall. Standard. Activity as tolerated. Lymphedema in the L UE. Subjective: Feeling better today. agreeable to a second walk in the hallway and then covering back exercises this afternoon for the second session. Indicated that she already walked with nursing staff from the shower room to her room. Has better pain control today compared to yesterday. Still awaiting recommendation from [facility] [place] to how to procceed with her MRI findings. Objective: General Observation: Resting in bed. Mental Status: Alert and oriented as to person, place, time, and purpose. Able to pay attention, focus, and respond appropriately. Pain: As above Vital Signs: Closely monitored by nursing Bed Mobility/Transfers: Minimal cueing provided for use of B hands as needed for support, movement sequence, AD management, and posture to reduce fall risk and minimize pain report Supine to sit stand by assist with HOB at 45 degrees Sit to stand stand by assist with FWW Stand to sit stand by assist with FWW Bed to reclining chair stand by assist with FWW Gait: Facilitated safe and correct performance level surface ambulation covering a distance of 150 feet using front-wheeled walker with step through gait pattern requiring contact-guard assist and minimal verbal cueing for posture, limb advancement, and AD management to reduce fall risk and minimize pain report. R DF increased today. Balance: Static Sitting: Good Dynamic Sitting: Fair Static Standing: Fair Dynamic Standing: Poor ASSESSMENT: Pain tolerance improving. Ambulation distance significantly increased. MRI results still being shared with [facility] by Xiomara Hernandez and awaiting interpretation as well as recommendation for further management of suspected inflammation vs abscess in spinal cord. Patient presents with clinical signs and symptoms consistent with current/admitting diagnoses that have resulted to mobility limitations, gait instability, generalized weakness, and overall ADL decline as demonstrated by the following impairment level findings: 1. Decreased strength R hip and knee major muscle groups 2. Impaired standing balance/toelrance 3. Impaired activity tolerance 4. Limitation of joint range of motion in R hip 5. Lymphedema of R UE (chronic) Impairments are contributing to the following functional limitations: 1. Decline in bed mobility skills 2. Decline in transfer skills 3. Difficulty with ambulation without assistive device and physical assistance 4. Increased completion time for mobility ADL performance 5. Increased risk for falls 6. Difficulty with managing steps alone safely Plan of Care/Treatment Plan: 1-2x/day, 7 days/week x 1 week. Plan of care has been reviewed with the MORTARMAN providing the service under Physical Therapy direction. Initiate Physical Therapy intervention for pain management as needed, strengthening, bed mobility, transfers, gait, stairs, balance training, and use of assistive device. Teach HEP as follows for this afternoon's session: Access Code: [email or web address] URL: [email or web address] Date: 05/22/2023 Prepared by: Ethel Theodore Exercises - Supine Posterior Pelvic Tilt - 1 x daily - 7 x weekly - 1 sets - 10 reps - 5 hold - Supine Anterior Pelvic Tilt - 1 x daily - 7 x weekly - 1 sets - 10 reps - 5 hold - Supine Single Knee to Chest Stretch - 1 x daily - 7 x weekly - 1 sets - 10 reps - 5 hold - Supine 90/90 Alternating Toe Touch - 1 x daily - 7 x weekly - 1 sets - 10 reps - 5 hold - Seated Hamstring Stretch - 1 x daily - 7 x weekly - 1 sets - 10 reps - 5 hold - Supine Gluteal Sets - 1 x daily - 7 x weekly - 1 sets - 10 reps - 5 hold DISCHARGE RECOMMENDATIONS: [] Home with no services [] [] Home with services [specify] [X] Home with outpatient PT for continued L knee rehab and additional back rehab upon re-evaluation by outpatient PT. Will require refrral for lymphedema management for L UE. [] SNF for continued rehabilitation [] [] Custodial Care [] [] SNF versus LTC based on ability to participate and progress [] TREATMENT CODE/TIME: 38630 x 38 minutes for 3 units (11:16-11:51).
--- NOTE | 2023-05-22 13:45 | PDOC.CMPRO ---
Date of service: 05/22/23 Time of Service: 13:45 Care Management Progress Note Progress Note Text Progress Note Text: S/O: Wendy is being closely monitored for s/sx of infection and being treated with steroids. Neurosurgery at [facility] was consulted, recommendations provided. Wendy has been up and out of bed today. She was sleeping when CM attempted to meet with her this afternoon and earlier in the day she was unavailable. Awaiting PT recommendation. CM will continue to follow. A: 57 year old female admitted to [facility] on 05/20/2023 with Intractable back pain, P: Anticipate Wendy will be discharged home with no new services. She will follow up with her community providers and plan of care and transport with family. CM will follow and continue to assess for discharge needs. SDOH(Care Management) Screening Will the Patient Participate in the Screening?: Declined to provide
--- NOTE | 2023-05-22 14:30 | PT.INTREAT ---
PT Notes Visit Reasons: Intractable Back Pain, R/O Discitis Inpatient Physical Therapy Treatment Note [facility] Date: 05/22/23 PRECAUTIONS:Standard SUBJECTIVE: Pt reports that she had medication recently and was going to look into a pain patch as well. OBJECTIVE: ? Therapeutic Activities (05456e[]): Direct one-on-one instruction in dynamic activities to improve functional performance. ? BED MOBILITY/TRANSFERS? Supine-sit: SBA? Sit-supine: SBA ? Sit-stand: CGA? Stand-sit: CGA ? Provided skilled cues and instruction on performance and technique throughout. ? Therapeutic Exercises (44308c[1]): Direct one-on-one instruction in therapeutic exercises to develop strength, endurance, range of motion and flexibility. ? Exercises ? Supine exercises: Rowing x 10 Shoulder horizontal abd x 10 Shoulder circles x 10 Shoulder flexion x 10 Ankle pumps x 10 Q.S. x 10 Pt did not feel she could tolerate core stabilization ther ex this afternoon. Ambulation ? Assistive Device: FWW ? Weight bearing: Full Assist: CGA? Distance:? Approx 75ft x 2? ASSESSMENT:? Pt tolerated today's session fairly well. She was still experiencing discomfort but reports it is improved some. PLAN: Cont as per PT POC. TREATMENT CODE/TIME: 1:55-2:30 (35) TEx2
--- NOTE | 2023-05-22 14:51 | PGE_ITS ---
Date of Service Date of service: 05/22/23 Time of Service: 14:51 Assessment and Plan Assessment and plan (1) Intractable back pain: Status: Acute Assessment and plan: Findings from MRI discussed again today, now with IR at [facility] plan to go down and back for IR drainage of abscess on for 2:20 pm procedure. needs to be NPO after midnight on sundayMay 22 patient has been afebrile with CRP trending downward, WBC up from 13 to 16 (? steroids) agreed to continue steroids at this point. We should follow her inflammatory markers monitor for signs of fever or infection. holding off on antibiotics at this point until culture can be obtained, low threshold to initiate if clinical picture changes She is responding to current pain management will continue as scheduled with aggressive bowel management PT OT. (2) Hyperaldosteronism: Assessment and plan: Continue aldosterone and losartan for her blood pressure (3) Hypertension: Assessment and plan: As above Discussed with Qualifiers: Hypertension type: secondary to endocrine disorders Qualified Code(s): I15.2 - Hypertension secondary to endocrine disorders Subjective Subjective Patient reports: still having pain, tolerating liquids well, tolerating a regular diet, voiding w/o difficulty and afebrile; denies shortness of breath Interval history since last seen: one episode of urinary incontinence this am. denies saddle anesthesia, Exam Narrative Exam Narrative: White female older appearing than stated age chronically ill-appearing head is atraumatic eyes nonicteric noninjected neck is supple with no JVD cardiovascular regular rate and rhythm respirations even and unlabored abdomen benign moves all extremities equally sensation intact to bilateral lower extremities strength equal. Denies any saddle anesthesia Objective Last Vital Signs Temp 35.9 C L 05/22/23 07:47 Pulse 64 05/22/23 07:47 Resp 18 05/22/23 07:47 BP 139/74 05/22/23 07:47 Pulse Ox 93 05/22/23 07:47 Laboratory Results - last 24 hr 05/21/23 17:46 WBC 16.46 H RBC 3.58 L Hgb 11.1 L Hct 33.8 L MCV 94 MCH 31.0 MCHC 32.8 RDW 13.2 Plt Count 332 MPV 9.2 Immature Gran % 0.9 Neutrophils % 87.5 Lymphocytes % 6.8 Monocytes % 4.7 Eosinophils % 0.0 Basophils % 0.1 Nucleated RBC % 0.0 Absolute Neutrophils 14.40 H Absolute Lymphocytes 1.12 L Absolute Monocytes 0.77 Absolute Eosinophils 0.00 Absolute Basophils 0.02 Sodium 139 Potassium 4.5 Chloride 105 Carbon Dioxide 20.7 L Anion Gap 13.3 H BUN 42 H Creatinine 1.9 H Est GFR (CKD-EPI 2020) 30.04 Glucose 275 H Calcium 8.6 Total Bilirubin 0.4 AST 19 ALT 29 Alkaline Phosphatase 101 C-Reactive Protein 5.85 H Total Protein 6.9 Albumin 2.8 L PAWSS Have you Been Recently Intoxicated or Drunk Within the Last 30 days?: No Have you Ever Experienced Previous Episodes of Alcohol Withdrawal?: No Have you ever Experienced Withdrawal Seizures?: No Have you ever Experienced Delirium Tremens(DT)s?: No Have you ever undergone Alcohol Rehabilitation Treatment (i.e, inpt ot outpatient treatment programs)?: No Have you ever Experienced Blackouts?: No Have you ever Combined Alcohol with other Downers within the last 90 days?: No Have you ever Combined Alcohol with any other Substance of Abuse during the last 90 days?: No Result: 0 Time Spent with Patient Time Spent with Patient: >50 minutes Time was spent: preparing to see the patient(eg.review tests), obtaining and/or reviewing separately otained hiistory, ordering medications,tests, procedures, referring, communicating with other health care transitions nurse, indepentently interpreting results, counseling the patient and care coordination
[2023-05-22 15:26] VITALS: BP 127/86; PULSE 65; RESP 17; TEMP 36.6; O2SAT 94
[2023-05-22] MEDS: dilTIAZem CD 120 MG CAPCR 240 MG PO (20:05)
[2023-05-22] MEDS: Senna TAB 1 TAB PO (20:07)
[2023-05-22 20:12] VITALS: BP 140/92; PULSE 70; RESP 18; O2SAT 95
[2023-05-22 23:05] VITALS: BP 133/89; PULSE 76; RESP 16; TEMP 36; O2SAT 94
[2023-05-23 06:55] VITALS: BP 142/83; PULSE 55; RESP 22; TEMP 35.5; O2SAT 93
[2023-05-23 07:05] LABS: Abs Immature Grans 0.33 10^3/uL (0.0-0.06); Absolute Basophil Count 0.03 10^3/uL (0.0-0.2); Absolute Lymphocyte Count 1.47 10^3/uL (1.2-3.4); Absolute Neutrophil Count 13.66 10^3/uL (1.2-6.7); Basophils % 0.2; Lymphocytes % 8.8; MCH 30.9 pg (27.0-33.0); MCHC 32.4 % (32.0-36.0); MCV 95 fL (80-95); MPV 9.3 fL (8.0-11.0); Monocytes % 7.2; Neutrophils % 81.8; Platelet Count 370 10^3/uL (130-400); RBC 3.88 10^6/uL (3.93-5.22); RDW 13.2 % (11.7-14.6); RDW-SD 46.7 fL
[2023-05-23] MEDS: Gabapentin 300 MG CAP PO ×2 (07:57→20:42)
[2023-05-23] MEDS: Losartan 25 MG TAB 100 MG PO (07:57)
[2023-05-23] MEDS: Polyethylene Glycol 3350 17 GM PACKET PO ×2 (07:57→20:42)
[2023-05-23] MEDS: diazePAM 5 MG TAB PO (07:58)
[2023-05-23] MEDS: Calcium Carbonate 1.5 GM TAB PO (07:58)
[2023-05-23] MEDS: Spironolactone 25 MG TAB PO (07:58)
[2023-05-23] MEDS: Methocarbamol 500 MG TAB 1000 MG PO ×3 (07:58→20:41)
[2023-05-23] MEDS: Rosuvastatin 10 MG TAB PO (07:58)
[2023-05-23] MEDS: oxyCODONE 5 MG TAB PO (07:59)
[2023-05-23] MEDS: FLUoxetine 20 MG CAP 40 MG PO (07:59)
[2023-05-23] MEDS: Cholecalciferol (Vitamin D3) 1,000 UNIT TAB 1000 UNITS PO (07:59)
[2023-05-23] MEDS: predniSONE 20 MG TAB 40 MG PO (07:59)
[2023-05-23] MEDS: Ferrous Sulfate 325 MG TAB PO (07:59)
[2023-05-23] MEDS: Normal Saline Flush 10 ML SYR IVP ×2 (08:00→20:47)
[2023-05-23] MEDS: Docusate Sodium 100 MG CAP PO ×3 (08:00→20:42)
[2023-05-23] MEDS: Pantoprazole 40 MG TABCR PO (08:09)
[2023-05-23] MEDS: Milk of Magnesia 30 ML CUP PO ×2 (08:09→20:42)
--- NOTE | 2023-05-23 09:57 | W.PM.PROGNOT ---
Date of Service Date of service: 05/23/23 Time of Service: 09:57 Assessment and Plan Assessment and plan (1) Intractable back pain: Status: Acute Assessment and plan: Findings from MRI discussed with [facility] [place] IR at [facility] and return on for 2:20 pm procedure. NPO after midnight on sundayMay 22 Patient has been afebrile no increased inflammatory markers No increase in leukocytosis Continue steroids Monitor her inflammatory markers monitor for signs of fever or infection. Still holding off on antibiotics: Until culture from IR can be obtained, will continue pain management regimen as scheduled with aggressive bowel management PT OT. (2) Hyperaldosteronism: Assessment and plan: Will Continue aldosterone and losartan for her blood pressure (3) Hypertension: Assessment and plan: As above DVT prophylaxis on heparin holding for IR Discussed with Qualifiers: Hypertension type: secondary to endocrine disorders Qualified Code(s): I15.2 - Hypertension secondary to endocrine disorders Subjective Subjective Patient reports: no new complaints, feels better, pain is less, tolerating liquids well, tolerating a regular diet, voiding w/o difficulty, flatus and no bowel movement (since sunday ); denies diarrhea, vomiting, shortness of breath or fever Exam Narrative Exam Narrative: Constitutional The patient is sitting in bed without acute distress HENMT: Facial structures with normal appearance Eyes: Well aligned Neck: Normal ROM, no meningeal signs Neuro:alert and oriented to self, person, place,time and situation. No neurological focal deficit Resp: Normal respiratory pattern, speaks in full sentences, unlabored breathing, clear lung bilaterally Cardio: regular rhythm, S1, S2, no murmur, capillary refill<3 sec., bilateral radial and dorsalis pedis pulses are positive GI: Abdomen is not distended, soft and non tender, bowel sounds are present : Negative Costovertebral angle tenderness Back/spine/Pelvis: No back tenderness, tingling or numbness, normal alignment Integumentary: No skin lesions or rash Extremities: strength 5/5 to bilateral lower and upper extremities Psych: RASS 0, congruent mood and normal affect. Objective Last Vital Signs Temp 35.5 C L 05/23/23 06:55 Pulse 55 L 05/23/23 06:55 Resp 22 05/23/23 06:55 BP 142/83 H 05/23/23 06:55 Pulse Ox 93 05/23/23 06:55 Laboratory Results - last 24 hr 05/23/23 06:35 WBC 16.70 H RBC 3.88 L Hgb 12.0 Hct 37.0 MCV 95 MCH 30.9 MCHC 32.4 RDW 13.2 Plt Count 370 MPV 9.3 Immature Gran % 2.0 Neutrophils % 81.8 Lymphocytes % 8.8 Monocytes % 7.2 Eosinophils % 0.0 Basophils % 0.2 Nucleated RBC % 0.0 Absolute Neutrophils 13.66 H Absolute Lymphocytes 1.47 Absolute Monocytes 1.20 H Absolute Eosinophils 0.00 Absolute Basophils 0.03 PAWSS Have you Been Recently Intoxicated or Drunk Within the Last 30 days?: No Have you Ever Experienced Previous Episodes of Alcohol Withdrawal?: No Have you ever Experienced Withdrawal Seizures?: No Have you ever Experienced Delirium Tremens(DT)s?: No Have you ever undergone Alcohol Rehabilitation Treatment (i.e, inpt ot outpatient treatment programs)?: No Have you ever Experienced Blackouts?: No Have you ever Combined Alcohol with other Downers within the last 90 days?: No Have you ever Combined Alcohol with any other Substance of Abuse during the last 90 days?: No Result: 0 Time Spent with Patient Time Spent with Patient: >50 minutes Time was spent: preparing to see the patient(eg.review tests), obtaining and/or reviewing separately otained hiistory, ordering medications,tests, procedures, referring, communicating with other health medicare compliance auditor, indepentently interpreting results, counseling the patient and care coordination
[2023-05-23 10:09] VITALS: TEMP 36.1
--- NOTE | 2023-05-23 10:42 | PT.INTREAT ---
PT Notes Visit Reasons: Intractable Back Pain, R/O Discitis Inpatient Physical Therapy Treatment Note [facility] Date: 05/23/23 PRECAUTIONS:Standard SUBJECTIVE: Pt reports that she did not sleep well last night. OBJECTIVE: Therapeutic Activities (86218g[]): Direct one-on-one instruction in dynamic activities to improve functional performance. ? BED MOBILITY/TRANSFERS? Supine-sit: CGAx1? Sit-supine: CGAx1? Sit-stand: CGAx1 ? Stand-sit: CGAx1 ? GAIT? Assistive Device: FWW? Weight bearing:Full Assist: CGAx1 ? Distance:? Approx 120ft ? Therapeutic Exercises (95092g[]): Direct one-on-one instruction in therapeutic exercises to develop strength, endurance, range of motion and flexibility. ? Exercises Rowing x 10 Shoulder horizontal abd x 10 Shoulder circles x 10 Shoulder flexion x 10 Ankle pumps x 10 Q.S. x 10 R LE LAQ x 10 Seated marching x 10 Ankle pumps x10 Supine hip abd x 10 Pt did not feel she could tolerate core stabilization ther ex this am ASSESSMENT:? Pt does feel she is doing better. There are still movements that cause discomfort. PLAN: Cont as per PT POC. TREATMENT CODE/TIME: 10:15-10:40 (25) HUI DAVILA
[2023-05-23] MEDS: Heparin 5,000 UNITS/ML VIAL 5000 UNITS SC (11:51)
[2023-05-23] MEDS: Acetaminophen 500 MG TAB 1000 MG PO ×2 (13:21→20:42)
--- NOTE | 2023-05-23 13:31 | CMPROGNOTE_ITS ---
Date of service: 05/23/23 Time of Service: 13:31 Care Management Progress Note Progress Note Text Progress Note Text: S/O: Wendy was lying in bed when CM met with her. She is awake and engages in conversation. She has her Ipad and is working on puzzles to stay occupied. She will be going to [facility] for a down and back procedure for drainage and culture of an abscess. She denies concerns at this time, her back pain is tolerable. Wendy shares that she and her network operations analyst so she will have support when she is ready for discharge. CM will follow. A: 57 year old female admitted to [facility] on 05/20/2023 with Intractable back pain, P: [facility] procedure planned for 05/24/23, culture needed them ABX course will follow. Anticipate, Wendy will be discharged home with no new services. She will follow up with her community providers and plan of care and transport with family. CM will follow and continue to assess for discharge needs. SDOH(Care Management) Screening Will the Patient Participate in the Screening?: Declined to provide
--- NOTE | 2023-05-23 14:47 | PHA.REVIEW2 ---
Pharmacy Admission Review Admission Clinical Review Admission Pharmacy Review: Intractable back pain (Acute) sertraline [From Zoloft] Allergy (Verified 05/20/23 13:20) Skin Rash Penicillins Adverse Reaction (Intermediate, Verified 05/20/23 13:20) Thrush Resuscitation Status Full Code Height 5 ft Weight 82.8 kg Comments Comments/Follow Ups: Per progress note, plan for down and [place] [facility] [place] on at 1400. Will be NPO after midnight tonight Pharmacy Admission Review Renal Dosing Renal Dosing: BUN 42 mg/dL (7-18) H 05/21/23 17:46 Creatinine 1.9 mg/dL (0.55-1.02) H 05/21/23 17:46 Medications needing adjustments: Reviewed (CrCl 30.35 mL/min) List of meds needing interventions: Current medications are okay Anticoagulation Anticoagulation: Hgb 12.0 g/dL (11.2-15.7) 05/23/23 06:35 Hct 37.0 % (36.0-46.0) 05/23/23 06:35 Plt Count 370 10^3/uL (130-400) 05/23/23 06:35 Creatinine 1.9 mg/dL (0.55-1.02) H 05/21/23 17:46 DVT Prophylaxis: Reviewed Medications: Heparin (q8h) Opiate Usage Evaluate Pain Scale/Pains Meds: Reviewed (PRN oxycodone) Scheduled Bowel Reg ordered if on Opiates?: Yes (GEORGINA Miralax/Docusate) Relevant Labs Relevant Labs: ESR 63 mm/hr (0-30) H 05/20/23 14:38 Sodium 139 mmol/L (136-145) 05/21/23 17:46 Potassium 4.5 mmol/L (3.5-5.1) 05/21/23 17:46 Chloride 105 mmol/L (98-107) 05/21/23 17:46 C-Reactive Protein 5.85 mg/dL (<or=0.5) H 05/21/23 17:46 Electrolytes, C-Reactive P, ESR: Reviewed (WBC increased from 16.46 to 16.7, no other new labs for today, blood culture showing no growth)) Cardiac Review BP, HR, EF%: Reviewed (BP 142/83 and HR 55) QTc Review QTc: Reviewed (No EKG on file) IV to PO Switch IV Medications: Reviewed Home Meds Home Med List reviewed: Reviewed Relevent Home Meds Not ordered & why?: Kami (q12w injection) Waiting to hear back if patients exemestane can be brought in from home. Order currently in there as patients own. Current Meds Current Medication Order Review: Reviewed Comments Comments/Follow Ups: Per progress note, plan for down and back to [facility] [place] on at 1400. Will be NPO after midnight tonight
--- NOTE | 2023-05-23 15:34 | PT.INTREAT ---
PT Notes Visit Reasons: Intractable Back Pain, R/O Discitis Date: 05/23/23 PRECAUTIONS: Fall. Standard. Activity as tolerated. Lymphedema in the L UE. SUBJECTIVE: Pt in bed when approached for therapy this afternoon, pt agreed to participating with therapy but request to pass by the toilet n the way out so she doesn't have to go back in after. OBJECTIVE: ? PAIN: recalcitrant lowback pain VITALS: monitored by nursing ? Therapeutic Activities [id number]: Direct one-on-one instruction in dynamic activities to improve functional performance. ?? BED MOBILITY/TRANSFERS? Rolling L/R: supervision Supine-sit: ? supervision? Sit-supine: ? supervision? Sit-stand: ? ?supervision ? Stand-sit: ?? supervision? Bed-Chair:? ?supervision ? Chair-bed: supervision Provided skilled cues and instruction on performance and technique throughout. Gait Training 23661q: Direct one-on-one instruction and skilled instruction in: Employing an assistive device Modified weight-bearing status Movement sequencing Turning and movement with proper form Provided verbal cues for equipment management and technique Provided instruction in gait pattern Patient education regarding pacing and breathing techniques to maximize activity tolerance? GAIT? Assistive Device: ?FWW ? Weight bearing: FWB Assist: ?SBA? Distance:?? 300' ? Deviation: ? slow radha low step height, short step length? ASSESSMENT:?pt able to transition from bed to toilet without LOB only requiring supervision, pt would like to trial stairs for tomorrows session. PLAN: Continue with balance training, global strengthening and general conditioning for improved safety, mobility and activity tolerance until pt is ready for DC. TREATMENT CODE/TIME: 59289r6 15mins (3:10-3:25pm)
[2023-05-23] MEDS: Bisacodyl 5 MG TABEC PO (18:55)
[2023-05-23] MEDS: dilTIAZem CD 120 MG CAPCR 240 MG PO (20:41)
[2023-05-23] MEDS: Senna TAB 1 TAB PO (20:42)
[2023-05-23 20:43] VITALS: BP 137/94; PULSE 66; RESP 18; TEMP 37; O2SAT 93
[2023-05-24] MEDS: Acetaminophen 500 MG TAB 1000 MG PO ×3 (04:42→21:24)
--- NOTE | 2023-05-24 06:13 | PGE_ITS ---
Date of Service Date of service: 05/24/23 Time of Service: 06:13 Assessment and Plan Assessment and plan (1) Intractable back pain: Status: Acute Assessment and plan: Findings from MRI discussed with [facility] on 05/21: IR at [facility] and return today 2:20 pm procedure. NPO Patient remains afebrile, f/u on inflammatory markers in AM No increased in WBC Continue steroids Still holding off on antibiotics: Until culture from IR can be obtained, Will continue pain management regimen as scheduled with aggressive bowel management PT OT. (2) Constipation: Status: Acute Assessment and plan: Bowel management meds ordered Patient refused suppository this AM (3) Difficult intravenous access: Status: Acute Assessment and plan: Midline consult and R basilic midline inserted (4) Hyperkalemia: Status: Acute Assessment and plan: IVF Lasix hold losartan repeat BMP today prior to departure BMP in AM (5) Hypermagnesemia: Status: Acute Assessment and plan: As above (6) Hyperaldosteronism: Assessment and plan: Will Continue aldosterone and hold losartan for her blood pressure (7) Hypertension: Assessment and plan: As above DVT prophylaxis on heparin on hold Discussed with Qualifiers: Hypertension type: secondary to endocrine disorders Qualified Code(s): I15.2 - Hypertension secondary to endocrine disorders Subjective Subjective Patient reports: no new complaints, still having pain, pain is less, tolerating liquids well (NPO), voiding w/o difficulty, flatus and no bowel movement (declined bowel management until return ); denies diarrhea, nausea, vomiting, shortness of breath or fever Exam Narrative Exam Narrative: Constitutional The patient is sitting in bed without acute distress Neuro:alert and oriented X4 No neurological focal deficit Resp: Normal respiratory pattern, speaks in full sentences, unlabored breathing, clear lung bilaterally Cardio: regular rhythm, S1, S2, no murmur, capillary refill<3 sec., bilateral radial and dorsalis pedis pulses are positive GI: Abdomen is not distended, soft and non tender, bowel sounds are present : Negative Costovertebral angle tenderness Back/spine/Pelvis: No back tenderness, tingling or numbness, normal alignment, but right gluteal muscle tenderness on palpation Integumentary: No skin lesions or rash Extremities: strength 5/5 to bilateral lower and upper extremities Psych: RASS 0, congruent mood and normal affect. Objective Last Vital Signs Temp 37 C 05/23/23 20:43 Pulse 66 05/23/23 20:43 Resp 18 05/23/23 20:43 BP 137/94 H 05/23/23 20:43 Pulse Ox 93 05/23/23 20:43 Laboratory Results - last 24 hr 05/23/23 06:35 WBC 16.70 H RBC 3.88 L Hgb 12.0 Hct 37.0 MCV 95 MCH 30.9 MCHC 32.4 RDW 13.2 Plt Count 370 MPV 9.3 Immature Gran % 2.0 Neutrophils % 81.8 Lymphocytes % 8.8 Monocytes % 7.2 Eosinophils % 0.0 Basophils % 0.2 Nucleated RBC % 0.0 Absolute Neutrophils 13.66 H Absolute Lymphocytes 1.47 Absolute Monocytes 1.20 H Absolute Eosinophils 0.00 Absolute Basophils 0.03 PAWSS Have you Been Recently Intoxicated or Drunk Within the Last 30 days?: No Have you Ever Experienced Previous Episodes of Alcohol Withdrawal?: No Have you ever Experienced Withdrawal Seizures?: No Have you ever Experienced Delirium Tremens(DT)s?: No Have you ever undergone Alcohol Rehabilitation Treatment (i.e, inpt ot outpatient treatment programs)?: No Have you ever Experienced Blackouts?: No Have you ever Combined Alcohol with other Downers within the last 90 days?: No Have you ever Combined Alcohol with any other Substance of Abuse during the last 90 days?: No Result: 0 Time Spent with Patient Time Spent with Patient: >50 minutes Time was spent: preparing to see the patient(eg.review tests), obtaining and/or reviewing separately otained hiistory, ordering medications,tests, procedures, referring, communicating with other health critical care transport nurse, indepentently interpreting results, counseling the patient and care coordination
--- NOTE | 2023-05-24 06:45 | NUR.NOTE ---
report given to or nurse at [facility] via telephone. this morning. Has appotment this afternoon. Pt NPO at this time.Nursing Note:
[2023-05-24 06:47] LABS: Abs Immature Grans 0.66 10^3/uL (0.0-0.06); Absolute Basophil Count 0.05 10^3/uL (0.0-0.2); Absolute Lymphocyte Count 1.81 10^3/uL (1.2-3.4); Basophils % 0.3; Eosinophils % 0.1; HCT 37.1 % (36.0-46.0); Immature Grans % 4.2; Lymphocytes % 11.5; MCH 30.7 pg (27.0-33.0); MCHC 32.3 % (32.0-36.0); MCV 95 fL (80-95); MPV 9.3 fL (8.0-11.0); Neutrophils % 74.9; Platelet Count 366 10^3/uL (130-400); RBC 3.91 10^6/uL (3.93-5.22); RDW 13.3 % (11.7-14.6); RDW-SD 46.6 fL
[2023-05-24 06:49] VITALS: BP 137/94; PULSE 66; RESP 18; TEMP 37; O2SAT 93
[2023-05-24 06:50] LABS: Absolute Eosinophil Count 0.02 10^3/uL (0.0-0.7); Absolute Monocyte Count 1.41 10^3/uL (0.1-0.8); Absolute Neutrophil Count 11.76 10^3/uL (1.2-6.7)
[2023-05-24 07:09] LABS: PTT Activated 29.5 sec (23.6-32.8); Prothrombin Time 10.1 sec (9.1-11.1)
[2023-05-24 07:13] LABS: Diff Comment Diff Reviewed; RBC Morphology Normal
[2023-05-24 07:15] LABS: Anion Gap 10.1 mmol/L (3-11); BUN 53 mg/dL (7-18); CO2 23.9 mmol/L (21.0-32.0); Calcium 8.9 mg/dL (8.5-10.1); Chloride 105 mmol/L (98-107); Estimated GFR 28.25 (mL/min/1.73m2); Glucose 196 mg/dL (74-106); Magnesium 2.9 mg/dL (1.8-2.4); Potassium 5.4 mmol/L (3.5-5.1); Sodium 139 mmol/L (136-145)
[2023-05-24 07:50] VITALS: BP 141/89; PULSE 68; RESP 15; TEMP 37; O2SAT 100
[2023-05-24] MEDS: Methocarbamol 500 MG TAB 1000 MG PO ×2 (08:21→21:26)
[2023-05-24] MEDS: Cholecalciferol (Vitamin D3) 1,000 UNIT TAB 1000 UNITS PO (08:21)
[2023-05-24] MEDS: Calcium Carbonate 1.5 GM TAB PO (08:21)
[2023-05-24] MEDS: Rosuvastatin 10 MG TAB PO (08:22)
[2023-05-24] MEDS: Gabapentin 300 MG CAP PO ×2 (08:22→21:25)
[2023-05-24] MEDS: Pantoprazole 40 MG TABCR PO (08:22)
[2023-05-24] MEDS: FLUoxetine 20 MG CAP 40 MG PO (08:22)
[2023-05-24] MEDS: Spironolactone 25 MG TAB PO (08:22)
[2023-05-24] MEDS: Ferrous Sulfate 325 MG TAB PO (08:23)
[2023-05-24] MEDS: Losartan 50 MG TAB 100 MG PO (08:23)
[2023-05-24] MEDS: predniSONE 20 MG TAB 40 MG PO (08:23)
[2023-05-24] MEDS: Lidocaine 5% Patch 2 PATCH TP (08:24)
[2023-05-24] MEDS: Normal Saline Flush 10 ML SYR IVP ×2 (08:30→21:27)
[2023-05-24] MEDS: Normal Saline 1,000 ML 1000 ML IV (10:54)
[2023-05-24] MEDS: Furosemide 20 MG/2 ML VIAL IVP (10:54)
--- NOTE | 2023-05-24 12:04 | PDOC.CMPRO ---
Date of service: 05/24/23 Time of Service: 12:04 Care Management Progress Note Progress Note Text Progress Note Text: S/O: Wendy was lying in bed when CM met with her. She is awake and engages in conversation. She is going to [facility] IR for a down and back procedure for drainage and culture of an abscess. She denies concerns at this time, her back pain is tolerable. Per pt, her works from home so she will be well supported after discharge. CM will follow. A: 57 year old female admitted to [facility] on 05/20/2023 with Intractable back pain, P: [facility] IR procedure planned for 05/24/23, culture needed them ABX course will follow. Anticipate, Wendy will be discharged home with no new services. She will follow up with her community providers and plan of care and transport with family. CM will follow and continue to assess for discharge needs. SDOH(Care Management) Screening Will the Patient Participate in the Screening?: Declined to provide
--- NOTE | 2023-05-24 12:07 | PT.INTREAT ---
PT Notes Visit Reasons: Intractable Back Pain, R/O Discitis Date: 05/24/23 PRECAUTIONS: Fall. Standard. Activity as tolerated. Lymphedema in the L UE. SUBJECTIVE: Pt in bed when approached for therapy this morning, pt reports she is going to [facility] and is NPO and leaving at 1pm, pt agreed to participating with therapy so she could pass by the toilet prior to going on gait training. reports pain is well managed by present medication. OBJECTIVE: ? PAIN: recalcitrant lowback pain VITALS: monitored by nursing ? Therapeutic Activities [id number]: Direct one-on-one instruction in dynamic activities to improve functional performance. ?? BED MOBILITY/TRANSFERS? Rolling L/R: supervision Supine-sit: ? supervision? Sit-supine: ? supervision? Sit-stand: ? ?supervision ? Stand-sit: ?? supervision? Bed-Chair:? ?supervision ? Chair-bed: supervision Provided skilled cues and instruction on performance and technique throughout. Gait Training [id number]: Direct one-on-one instruction and skilled instruction in: Employing an assistive device Modified weight-bearing status Movement sequencing Turning and movement with proper form Provided verbal cues for equipment management and technique Provided instruction in gait pattern Patient education regarding pacing and breathing techniques to maximize activity tolerance? GAIT? Assistive Device: ?FWW ? Weight bearing: FWB Assist: ?SBA? Distance:?? 300' ? Deviation: ? slow radha low step height, short step length? ASSESSMENT:?pt able to transition from bed to toilet without LOB only requiring supervision, pt would like to trial stairs for tomorrows session. PLAN: Continue with balance training, global strengthening and general conditioning for improved safety, mobility and activity tolerance until pt is ready for DC. TREATMENT CODE/TIME: [id number] 15mins (11:40-11:55am)
[2023-05-24 13:15] LABS: Anion Gap 9.4 mmol/L (3-11); BUN 52 mg/dL (7-18); CO2 26.6 mmol/L (21.0-32.0); CREATININE 1.9 mg/dL (0.55-1.02); Chloride 103 mmol/L (98-107); Estimated GFR 30.04 (mL/min/1.73m2); Glucose 144 mg/dL (74-106); Potassium 5.5 mmol/L (3.5-5.1); Sodium 139 mmol/L (136-145)
[2023-05-24 13:23] LABS: Calcium 9.1 mg/dL (8.5-10.1)
[2023-05-24] MEDS: oxyCODONE 5 MG TAB PO (13:38)
[2023-05-24 19:22] VITALS: BP 165/92; PULSE 60; RESP 18; TEMP 36.1; O2SAT 94
--- NOTE | 2023-05-24 19:25 | NUR.NOTE ---
Arabella RN from [facility] called to give report on patient. Nurse report that psoas abscess was aspirated and send for test at [facility]. 2mg versed and 120mcg fentanyl adminstered for procedure. VS were stable during procedure BP:160/80 HR:60 spo2 95.
--- NOTE | 2023-05-24 19:29 | NUR.NOTE ---
An from [facility] called and reported that patient mid-line to the left upper arm was bleeding profusely and a new IV had to be started into the right forearm. Same was reported to the CC
[2023-05-24] MEDS: Polyethylene Glycol 3350 17 GM PACKET PO (21:24)
[2023-05-24] MEDS: Milk of Magnesia 30 ML CUP PO (21:24)
[2023-05-24] MEDS: dilTIAZem CD 120 MG CAPCR 240 MG PO (21:25)
[2023-05-24] MEDS: Docusate Sodium 100 MG CAP PO (21:26)
[2023-05-24] MEDS: Senna TAB 1 TAB PO (21:26)
[2023-05-24 23:56] LABS: Potassium 5.1 mmol/L (3.5-5.1)
[2023-05-25] MEDS: Acetaminophen 500 MG TAB 1000 MG PO ×2 (03:31→10:30)
[2023-05-25 06:35] LABS: Anion Gap 9.2 mmol/L (3-11); BUN 56 mg/dL (7-18); CO2 27.8 mmol/L (21.0-32.0); CREATININE 1.8 mg/dL (0.55-1.02); Calcium 8.2 mg/dL (8.5-10.1); Chloride 105 mmol/L (98-107); Estimated GFR 32.06 (mL/min/1.73m2); Glucose 163 mg/dL (74-106); Magnesium 2.8 mg/dL (1.8-2.4); Potassium 5.1 mmol/L (3.5-5.1); Sodium 142 mmol/L (136-145)
[2023-05-25 07:27] LABS: HCT 38.5 % (36.0-46.0); HGB 12.4 g/dL (11.2-15.7); MCH 30.4 pg (27.0-33.0); MCHC 32.2 % (32.0-36.0); MCV 94 fL (80-95); MPV 8.9 fL (8.0-11.0); RBC 4.08 10^6/uL (3.93-5.22); RDW-SD 47.4 fL; WBC 14.99 10^3/uL (4.4-10.8)
[2023-05-25 07:50] VITALS: BP 159/95; PULSE 62; RESP 16; TEMP 36.7; O2SAT 94
[2023-05-25 07:50] LABS: Absolute Lymphocyte Count 3.45 10^3/uL (1.2-3.4); Absolute Monocyte Count 1.35 10^3/uL (0.1-0.8); Absolute Neutrophil Count 9.89 10^3/uL (1.2-6.7); Anisocytosis 1+; Diff Comment Manual Differential; Metamyelocytes % 2; Polychromasia Present
[2023-05-25] MEDS: Polyethylene Glycol 3350 17 GM PACKET PO (08:06)
[2023-05-25] MEDS: Lidocaine 5% Patch 2 PATCH TP (08:07)
[2023-05-25] MEDS: Docusate Sodium 100 MG CAP PO ×2 (08:08→14:09)
[2023-05-25] MEDS: Methocarbamol 500 MG TAB 1000 MG PO ×2 (08:08→14:09)
[2023-05-25] MEDS: Calcium Carbonate 1.5 GM TAB PO (08:08)
[2023-05-25] MEDS: Pantoprazole 40 MG TABCR PO (08:08)
[2023-05-25] MEDS: Rosuvastatin 10 MG TAB PO (08:09)
[2023-05-25] MEDS: Ferrous Sulfate 325 MG TAB PO (08:09)
[2023-05-25] MEDS: Gabapentin 300 MG CAP PO (08:09)
[2023-05-25] MEDS: FLUoxetine 20 MG CAP 40 MG PO (08:09)
[2023-05-25] MEDS: predniSONE 20 MG TAB 40 MG PO (08:09)
[2023-05-25] MEDS: Cholecalciferol (Vitamin D3) 1,000 UNIT TAB 1000 UNITS PO (08:09)
[2023-05-25] MEDS: Spironolactone 25 MG TAB PO (08:09)
[2023-05-25] MEDS: Normal Saline Flush 10 ML SYR IVP (08:10)
[2023-05-25 09:01] LABS: RDW 13.6 % (11.7-14.6)
[2023-05-25 09:02] LABS: Platelet Count 375 10^3/uL (130-400)
--- NOTE | 2023-05-25 13:52 | W.PM.DS.N ---
Date of service: 05/25/23 Time of Service: 13:52 DS: Diagnosis Discharge Diagnosis (1) Intractable back pain: Status: Acute (2) Constipation: Status: Acute (3) Difficult intravenous access: Status: Acute (4) Hyperkalemia: Status: Acute (5) Hypermagnesemia: Status: Acute (6) Hyperaldosteronism: (7) Hypertension: Discharge Plan Disposition Patient Disposition: Home Condition: Stable Discharge Details Reason For Visit: Intractable Back Pain, R/O Discitis Admit Date/Time: 05/23/23 11:29 Admit Provider: Flex Wilkerson Attending Provider: Flex Wilkerson Primary Care Provider: Trinh Coates [facility] Course Hospital Course: This is a 57-year-old female patient with past medical history significant for breast cancer status post mastectomies obstructive sleep apnea brain aneurysm status post stenting who developed intractable low back pain with radiation down her right leg. She presented to the emergency department for evaluation and was started on steroids and admitted to the medical surgical unit for MRI. She had no fever or signs of systemic infection. She had no recent spinal injections or history of drug abuse. Her MRI was concerning for a small paraspinal area of either inflammation or fluid collection. The case was discussed with neurosurgery and IR at [facility] and ultimately she did go down for down and back IR drainage of the area. She continued to respond to steroid therapy improving in her symptoms. Her white count did elevate but thought to be due to the steroids. Discharge is discussed with patient and she wishes for discharge to home while awaiting culture reports. Again with improved symptoms stable white count and no fever it is unlikely infectious. She was advised to return here sooner for new or worsening symptoms and should follow-up with her primary care provider to follow [facility] culture reports. She will be given steroid burst to complete her course discharged home with no services discharge discussed with Dr. Hurley Home Meds and New Rx's Prescriptions: New polyethylene glycol 3350 17 gram Powder In Packet 17 g PO BID Qty: 0 0RF prednisone 20 mg Tablet 40 mg PO DAILY Qty: 8 0RF acetaminophen 500 mg Tablet 650 mg PO QID Qty: 0 0RF docusate sodium [Colace] 100 mg Capsule 100 mg PO TID Qty: 0 0RF Continued calcium carbonate [Calcium 600] 600 mg calcium (1,500 mg) tablet 600 mg PO DAILY aspirin 81 mg tablet,delayed release (DR/EC) 81 mg PO DAILY fluoxetine [Prozac] 40 MG capsule 40 mg PO DAILY diltiazem HCl 240 MG capsule,extended release 24hr 240 mg PO HS rosuvastatin [Crestor] 10 mg tablet 10 mg PO DAILY cholecalciferol (vitamin D3) 1,000 UNITS tablet 1,000 units PO DAILY ferrous sulfate [Feosol] 325 MG tablet 1 tab PO DAILY losartan 25 mg Tablet 100 mg PO DAILY spironolactone 25 mg tablet 25 mg PO DAILY Patient Comments: TAKE 1 TABLET BY MOUTH ONCE DAILY gabapentin 300 mg capsule 300 mg PO BID Patient Comments: TK 1 C PO IN THE MORNING AND HS exemestane 25 mg tablet 25 mg PO DAILY Patient Comments: TAKE 1 TABLET BY MOUTH DAILY lidocaine 5 % adhesive patch,medicated 2 patch topical DAILY Qty: 15 0RF Rx Instructions: leave on most painful area for up to 12 hrs methocarbamol 500 mg tablet 1,000 mg PO TID PRN (Reason: spasms) Qty: 30 0RF diazepam [Valium] 5 mg tablet 5 mg PO TID PRN (Reason: muscle spasm) Qty: 9 0RF No Action Stelara 45 mg/0.5 mL syringe 45 mg SUBCUT Q12W Discharge Instructions Instructions: Back Pain (ED) Additional Instructions: your culture report is still pending. will call you with results, please call Sunday or Sunday if you have not heard anything. Stand Alone Forms: Nursing Discharge Form Referrals: Samm Nazario MD [ [facility] STAFF PHYSICIAN] - 06/13/23 9:15 am Trinh Coates MD [Primary Care Provider] - 06/08/23 2:20 pm Activity:: Activity as Tolerated Equipment/Supplies:: No Equipment Needed Diet:: As Tolerated Discharge Orders Discharge Orders: Discharge Order (Routine); Ordered 05/25/23 Ordered By: Mary Alberts Discharge Data Discharge Date/Time-TO BE ENTERED AT DEPARTURE: 05/25/23 17:16 DS: Summary Time Spent with Patient providing and/or coordinating discharge services: Greater than 30 minutes Status at Discharge Functional status at discharge: uses cane/walker Overall status at discharge: patient is progressing back to baseline Mental Status: mental status grossly normal Speech and Movement: speech and movement normal Mood: congruent mood Affect: normal affect Quality:SDOH Health Related Social Needs: No Data to Display Exam Narrative Exam Narrative: White female older appearing than stated age chronically ill-appearing head is atraumatic eyes nonicteric noninjected neck is supple with no JVD cardiovascular regular rate and rhythm respirations even and unlabored abdomen benign moves all extremities equally sensation intact to bilateral lower extremities strength equal. Denies any saddle anesthesia Psych Mental Status: mental status grossly normal Speech and Movement: speech and movement normal Mood: congruent mood Affect: normal affect DS: Data Vitals/I&O Vitals and I&O: Vital Signs Temperature 36.7 C 05/25/23 07:50 Temperature Source Tympanic 05/25/23 07:50 Pulse 62 05/25/23 07:50 Pulse Rhythm Regular 05/25/23 07:30 Respiratory Rate 16 05/25/23 07:50 Respiratory Effort Normal, Non-Labored 05/25/23 07:30 Respiratory Depth Normal 05/25/23 07:30 Respiratory Pattern Normal 05/25/23 07:30 Blood Pressure 159/95 H 05/25/23 07:50 Blood Pressure Position Sitting 05/20/23 13:13 Pulse Oximetry 94 05/25/23 07:50 Oxygen Delivery Method Room Air 05/25/23 07:50 Oxygen Flow Rate 0 05/25/23 07:50 Pain Level 2 05/25/23 10:30 Comment bp taken on right leg 05/25/23 07:50 Intake & Output 05/24/23 05/25/23 05/25/23 23:59 11:59 23:59 Weight 81.9 kg Other: Urine Color Yellow Urine Appearance Clear Stool Size Large Stool Characteristics Soft Formed Voiding Methods Toilet Data Completed and Pending Labs on day of discharge: Labs from last 24 hours 05/25/23 05/25/23 05/24/23 07:15 05:45 23:40 WBC 14.99 H Cancelled RBC 4.08 Cancelled Hgb 12.4 Cancelled Hct 38.5 Cancelled MCV 94 Cancelled MCH 30.4 Cancelled MCHC 32.2 Cancelled RDW 13.6 Cancelled Plt Count 375 Cancelled MPV 8.9 Cancelled Immature Gran % See Differential Cancelled Neutrophils % 66.0 Cancelled Band Neutrophils % Cancelled Lymphocytes % 23.0 Cancelled Atypical Lymphs % Cancelled Monocytes % 9.0 Cancelled Eosinophils % 0.0 Cancelled Basophils % 0.0 Cancelled Metamyelocytes % 2 Cancelled Myelocytes % Cancelled Promyelocytes % Cancelled Other Cells % Cancelled Nucleated RBC % 0.0 Cancelled Absolute Neutrophils 9.89 H Cancelled Absolute Lymphocytes 3.45 H Cancelled Absolute Monocytes 1.35 H Cancelled Absolute Eosinophils 0.00 Cancelled Absolute Basophils 0.00 Cancelled RBC Morphology See Below Cancelled Polychromasia Present Cancelled Hypochromasia Cancelled Poikilocytosis Cancelled Basophilic Stippling Cancelled Anisocytosis 1+ Cancelled Microcytosis Cancelled Macrocytosis Cancelled Spherocytes Cancelled Tear Drop Cells Cancelled Ovalocytes Cancelled Stomatocytes Cancelled Sanon-Cromwell Bodies Cancelled Langley Cells/Echinocytes Cancelled Acanthocytes (Spur) Cancelled Schistocytes Cancelled Sodium 142 Potassium 5.1 5.1 Chloride 105 Carbon Dioxide 27.8 Anion Gap 9.2 BUN 56 H Creatinine 1.8 H Est GFR (CKD-EPI 2020) 32.06 Glucose 163 H Calcium 8.2 L Magnesium 2.8 H 05/24/23 21:45 WBC RBC Hgb Hct MCV MCH MCHC RDW Plt Count MPV Immature Gran % Neutrophils % Band Neutrophils % Lymphocytes % Atypical Lymphs % Monocytes % Eosinophils % Basophils % Metamyelocytes % Myelocytes % Promyelocytes % Other Cells % Nucleated RBC % Absolute Neutrophils Absolute Lymphocytes Absolute Monocytes Absolute Eosinophils Absolute Basophils RBC Morphology Polychromasia Hypochromasia Poikilocytosis Basophilic Stippling Anisocytosis Microcytosis Macrocytosis Spherocytes Tear Drop Cells Ovalocytes Stomatocytes Sanon-Cromwell Bodies Sammie Cells/Echinocytes Acanthocytes (Spur) Schistocytes Sodium Potassium Cancelled Chloride Carbon Dioxide Anion Gap BUN Creatinine Est GFR (CKD-EPI 2020) Glucose Calcium Magnesium Preliminary micro results at discharge 05/20/23 16:29 Blood Culture - Preliminary Blood NO GROWTH 96 HOURS 05/20/23 16:37 Blood Culture - Preliminary Blood NO GROWTH 96 HOURS PFSH All Active Problems (Updated 05/24/23 @ 13:17 by Shruthi Hutchins APRN) Hypermagnesemia (Acute) Hyperkalemia (Acute) Difficult intravenous access (Acute) Constipation (Acute) Intractable back pain (Acute) Severe back pain (Acute) Left ACL tear (Acute ~03/2020) Acute lateral meniscal injury of left knee (Acute) Acute medial meniscus tear of left knee (Acute ~10/07/22) Brain aneurysm (Acute) External hemorrhoids (Acute) Sessile colonic polyp (Acute) Tubular adenoma of colon (Acute) JACQUELYN (obstructive sleep apnea) (Chronic) Screening for colon cancer (Acute) Medical History Lichen simplex chronicus Exophthalmos History of left breast cancer Sciatica Prediabetes Chronic kidney disease Peripheral neuropathy Lymphedema Left arm Hyperaldosteronism Right rotator cuff tendonitis Right lateral epicondylitis Trigger ring finger of right hand Biceps tendinitis of right shoulder s/p right shoulder arthroscopy DOS: 12/12/19 Arthritis of right acromioclavicular joint s/p right shoulder arthroscopy DOS: 12/12/19 Vulvar rash (12/11/13) lichen simplex chronicus, w/ features of psoriasis which pt has on hands and elsewhere. treated w/ steroids Tinnitus (10/27/15) Left ureteral stone (03/02/17) Irregular bleeding (05/14/14) currently treated w/ POPs, to amenorhea History of hyperparathyroidism (03/02/17) Bursitis of shoulder (12/30/12) Bilateral kidney stones (03/02/17) Abnormal auditory perception (10/27/15) Obesity Hypertension Psoriasis Proteinuria Impaired fasting glucose Kidney stone Hyperlipidemia Herpes, genital Fibrocystic breast Depression Attention deficit disorder (ADD) Hypomagnesemia Hx of hypoparathyroidism History of hypothyroidism Psoriasis Breast cancer Seroma complicating a procedure Leukocytosis Hypokalemia Surgical History Brain surgery within last 3 months Hx of knee surgery History of ankle surgery Left Hx of shoulder surgery Left Hx of bilateral mastectomy Hx of shoulder surgery L arm clavicle and muscle Rotator cuff tear, right s/p right shoulder arthroscopy with arthroscopic biceps tenodesis DOS: 12/12/19 RIGHT THUMB ARTHROPLASTY (01/27/15) DR. KANG Colonoscopy - [facility] (~02/2021) Family History Mother Lymphoma Social History Smoking/Tobacco Use Status: Former Tobacco Use Quit Date: 02/20/92 Smoking risk assessment performed?: Yes Alcohol Intake: current Alcohol Intake frequency: a few times a week Drug use: Never Substance use type: does not use Housing: house Current gender identity: female Seatbelt use: always Do you feel safe at home: Yes Do you feel safe in your relationship?: Yes Time Spent with Patient Time Spent with Patient: 45-69 minutes Time was spent: preparing to see the patient(eg.review tests), obtaining and/or reviewing separately otained hiistory, ordering medications,tests, procedures, indepentently interpreting results and counseling the patient
--- NOTE | 2023-05-25 13:56 | CMDISCH_ITS ---
Date of service: 05/25/23 LACE Index Scoring Tool Questions: Length of Stay (in days): 2 Was the patient admitted via the E.D.?: Yes E.D. Visits: 1 Answers: Total Score: 6 Risk of Readmission: Low Risk Care Management Discharge Plan Reason for Hospitalization: Intractable back pain Discharge Plan: Wendy will discharge home via private vehicle by family. She will follow up with her PCP and discharge plan of care as prescribed. She will not have any new services. Patient/Family Education Needs: Review discharge instructions and plan of care as prescribed. Discussion of Ask Me Three [facility] Health Related Social Needs: No Data to Display
--- NOTE | 2023-05-25 14:51 | PT.INNT ---
PT Notes Visit Reasons: Intractable Back Pain, R/O Discitis pt declined PT this am due to being tired and sore from procedure at [facility] yesterday. She also declined PT in pm stating that she has been up, cleaned up and ready to go home at some point this pm.
== END 2023-05-25 17:16 | disposition home or self-care (01) | DRG 552 ==
LOC: ER 16:49 → MS 18:14
PROVIDERS: Family Medicine; Nurse Practitioner Acute Care; Physician Assistant; Admitting Provider Internal Medicine; Emergency Provider Nurse Practitioner Family; PCP Family Medicine; Visit Provider Internal Medicine
DX: M46.96 Unspecified inflammatory spondylopathy, lumbar region (principal); M54.50 Low back pain, unspecified; I15.2 Hypertension secondary to endocrine disorders; E26.9 Hyperaldosteronism, unspecified; K59.00 Constipation, unspecified; G47.33 Obstructive sleep apnea (adult) (pediatric); Z96.652 Presence of left artificial knee joint; Z85.3 Personal history of malignant neoplasm of breast; Z90.13 Acquired absence of bilateral breasts and nipples; E89.2 Postprocedural hypoparathyroidism; N20.0 Calculus of kidney; R26.2 Difficulty in walking, not elsewhere classified; R73.03 Prediabetes; N18.9 Chronic kidney disease, unspecified; G62.9 Polyneuropathy, unspecified; I89.0 Lymphedema, not elsewhere classified; E66.9 Obesity, unspecified; L40.9 Psoriasis, unspecified; E78.5 Hyperlipidemia, unspecified; F32.A Depression, unspecified; E03.9 Hypothyroidism, unspecified; Z68.35 Body mass index [BMI] 35.0-35.9, adult; E83.41 Hypermagnesemia; E87.5 Hyperkalemia; M47.816 Spondylosis without myelopathy or radiculopathy, lumbar region; M51.35 Other intervertebral disc degeneration, thoracolumbar region
CPT/HCPCS: 36410; 00123; 36415; 72158; 80048; 80053; 85652; 87040; 96365; 96366; 96372; 96375; 97110; 97162; 97530; 99285; 81003; 81015; 83735; 84132; 85025; 85610; 85730; 86140; 99222; 99232; 99233; 99239; G0378; J0131; J1100; J1170; J1644; J1941; J7512

== ENCOUNTER 2023-09-04 12:09 | Outpatient (CLI) | payer OTHER, SELFPAY ==
--- NOTE | 2023-09-04 09:15 | DI.RAD_ITS ---
Exam(s) XR KNEE LT 2V AP,LAT EXAM: XR KNEE LT 2V AP,LAT CLINICAL HISTORY: F/U KNEE SURGERY. TECHNIQUE: 2D digital imaging was performed. COMPARISON: CR XR KNEE LT 2V AP,LAT from 10/25/2022 FINDINGS: Two views-AP and lateral No evidence of fracture but there is a prominent joint effusion again noted. Again noted is evidence of prior a seal surgery with interval revision, as there are now 2 identical fixation plates along the outer cortex of the distal lateral femoral metaphysis (previously was a sin gle plate on the October 2022 images). In addition, the tibial channel has been deep end and the f ixation but min is located more caudally than on the previous images. There is significant narrowing of the medial compartment evident on the weight-bearing view and ladonna nal osteophytes off the medial compartment, more so than previous. The lateral compartment continues to exhibit normal height. Bone density normal. No osseous lesions. IMPRESSION: Compared to images of 10/25/2022 there has been interval revision of the ACL graft which was shown to be discontinuous-torn on MRI scan of 11/15/2022. There has been progression of degenerative change in the medial compartment of the knee. There is a joint effusion again noted in the suprapatellar bursa. DATA REPOSITORY: RADIATION DOSE DELIVERED:
== END 2023-09-04 12:10 | disposition home or self-care (01) ==
LOC: DIORS 12:09
PROVIDERS: PCP Family Medicine; Visit Provider Student in an Organized Health Care Education/Training Program
DX: S83.512A Sprain of anterior cruciate ligament of left knee, initial encounter (principal); M17.12 Unilateral primary osteoarthritis, left knee; M25.462 Effusion, left knee
CPT/HCPCS: 73560

== ENCOUNTER 2023-09-07 11:13 | Outpatient (REF) | payer OTHER, SELFPAY ==
--- OUTSIDE RECORDS SUMMARY | 2023-09-07 11:23 | XMS_ITS | Encounter Summary ---
Author Organization Formerly [facility] [place] [address] Care Team Providers Care Interface Designer Name Role Phone Trinh Coates MD Primary Care Provider Encounter Details Date Type Department Care Team (Late st Contact Info) Description 02/01/2023 Telephone [place] [address] Erich Davis MD [facility] [place] [address] Social History Tobacco Use Types Packs/Day Years Used Date Smoking Tobacco: Former Cigarettes Q uit: 08/07/1991 Smokeless Tobacco: Never Alcohol Use Standard Drinks/Week Comments Yes 0 (1 standard drink = 0.6 oz pur e alcohol) socially once a month Sex and Gender Information Value Date Recorded Sex Assigned at Not on file Gender Identity Not on file Sexual Orientation Not on file documented as of this encounter Miscellaneous Notes * Telephone Encounter - Jazmyn Bowen - 02/01/2023 8:38 AM EST Images from the original note were not included. 1 yr recall entered to schedule angiogram Erich Davis MD [facility] Neurosurgery [place], This patient will follow up with Dr Watts with a repeat cerebral angiogram in one year. Thank you, Arian documented in this encounter Plan of Treatment Upcoming Encounters Date Type Department Care Team (Late st Contact Info) Description 01/22/2024 10:30 AM EST Appointment Mammography/DXA at [place] [phone] Ladi Mendosa MD [facility] HEMATOLOGY/[place] [address] 01/30/2024 11:30 AM EST Office Visit Dermatology at [address] [place] [phone] Nilda Luis MD [facility] [place] [phone] 02/15/2024 9:30 AM EST Appoint[place] [address] [place] [address] documented as of this encounter Visit Diagnoses Not on filedocumented in this encounter Care Teams Interface Designer Relationship Specialty Start Date End Date Trinh Coates MD [facility] [address] [place] [address] PCP - General 01/11/10 documented as of this encounter
--- OUTSIDE RECORDS SUMMARY | 2023-09-07 11:23 | XMS_ITS | Encounter Summary ---
Author Organization [facility] [place] [address] Care Team Providers Care Flowers Salesperson Name Role Phone Trinh Coates MD Primary Care Provider [phone] Reason for Referral * Diagnostic Test (Routine) - New Request Specialty Diagnoses / Procedures Referred By Diamante marin Referred To Contact Radiology Diagnoses Right internal carotid artery aneurysm Procedures IR Arteriogram Cerebral [place] [address] [place] [address] Referral ID Status Reason Start Date Expiration Date Visits Requested Visits Authorized [id number] New Request Specialty Service Requested 3 08/07/2024 1 1 Encounter Details Date Type Department Care Team (Late st Contact Info) Description 02/06/2023 Orders [place] [address] [place] [address] 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 Social History Tobacco Use Types Packs/Day Years [...] on file documented as of this encounter Plan of Treatment Upcoming Encounters Date Type Department Care Team (Late st Contact Info) Description 01/22/2024 10:30 AM EST Appointment Mammography/DXA at [place] [phone] Ladi Mendosa MD [facility] HEMATOLOGY/[place] [address] 01/30/2024 11:30 AM EST Office Visit Dermatology at [address] [place] [phone] Nilda Luis MD [facility] [address] [place] [address] 02/15/2024 9:30 AM EST Appointment [place] [phone] [place] [address] Scheduled Orders Name Type Priority Associated Diagnoses Orde r Schedule IR Arteriogram Cerebral Imaging Routine 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
--- OUTSIDE RECORDS SUMMARY | 2023-09-07 11:23 | XMS_ITS | Encounter Summary ---
Author Organization [facility] Address [facility] [place] [address] Care Team Providers Care Can Closing Machine Operator Name Role Phone Trinh Coates MD Primary Care Provider [phone] Encounter Details Date Type Department Care Team (Late st Contact Info) Description 03/05/2023 Telephone [place] [address] Tawana Booth RN Social History Tobacco Use Types Packs/Day Years [...] encounter Miscellaneous Notes * Telephone Encounter - Tawana Booth RN - 03/05/2023 3:32 PM EST Received call back from Xiomara at [facility]. They will proceed with patient's surgery with her on aspirin. documented in this encounter Plan of Treatment Upcoming Encounters Date Type Department Care Team (Late st Contact Info) Description 01/22/2024 10:30 AM EST Appointment Mammography/[place] [address] Ladi Mendosa MD [facility] DR HEMATOLOGY/[place] [address] 01/30/2024 11:30 AM EST Office Visit Dermatology at [facility] [address] [address] Nilda Luis MD [facility] DR LIDIA [place] [address] 02/15/2024 9:30 AM EST Appointment [place] [phone] [place] [address] documented as of this encounter Visit Diagnoses Not on filedocumented in this encounter Care Teams Can Closing Machine Operator Relationship Specialty Start Date End Date Trinh Coates MD [facility] [address] [place] [address] PCP - General 01/11/10 documented as of this encounter
--- OUTSIDE RECORDS SUMMARY | 2023-09-07 11:23 | XMS_ITS | Encounter Summary ---
Author Organization [facility] Address [facility] [place] [address] Care Team Providers Care Career Technology Teacher Name Role Phone Trinh Coates MD Primary Care Provider [phone] Encounter Details Date Type Department Care Team (Latest Contact Info) Description 05/15/2023 3:00 PM EDT Office Visit Nephrology [place] [address] [place] [address] Chronic kidney disease, unspecified CKD stage; Hyperaldosteronism Social History Tobacco Use Types Packs/Day Years [...] on file documented as of this encounter Last Filed Vital Signs Vital Sign Reading Time Taken Comments Blood Pressure 121/78 05/15/2023 3:11 PM EDT Pulse 77 05/15/2023 3:11 PM EDT Temperature - - Respiratory Rate - - Oxygen Saturation 95% 05/15/2023 3:11 PM EDT Inhaled Oxygen Concentration - - Weight 83.9 kg (185 lb) 05/15/2023 3:11 PM EDT Height 152.4 cm (5') 05/15/2023 3:11 PM EDT Body Mass Index 36.13 05/15/2023 3:11 PM EDT documented in this encounter Progress Notes * Zackery Dawson MD - 05/15/2023 3:00 PM EDT PATIENT: Wendy Sandoval : 1965 Interval history: Patient reports overall doing well. She underwent clipping of cerebral aneurysm. She also had knee replacement in the interval. Tolerated this without issue. She has no complaints today. Assessment/Plan: #Creatinine elevation CKD stage III A3 CR 1.89-> eGFR 30ml/min . Of note BUN to creatinine ratio greater than 20 suggestive of some element of azotemia. Creatinine fluctuate between around 1 and 2 mg/dL and what appears to be hemodynamic pattern. Patient does have bilateral cysts (and new brain aneurysm detected via screening) plus Ihave. Sub- gram proteinuria with albuminuria 318 mcg/mg creatinine/0.4 g per spot UPC. Improved compared to prior spot checks in 2014. Serologic work-up was negative. Patient reports proteinuria has been present since episode of eclampsia during . Plan: Continue to focus on hydration. Patient is on losartan, diltiazem and Spironolactone, all noted to have anti-proteinuric properties. Will send urine sample for surveillance of proteinuria. Plan for ultrasound in 1 year for surveillance of renal cysts. #Hyperaldosteroism BP 121/78: Has been well controlled at recent clinic visits. Aldosteronism is Bilateral disease perrenal vein sampling. Potassium managed without supplementation. Patient is on spironolactone, and blood pressure and hypokalemia appears to be relatively well managed at this point in time. Would continue to monitor potassium and magnesium at least quarterly. Continue spironolactone, diltiazem and losartan Renal Clinic Follow-Up Plan: 12 months Past Medical History: Diagnosis Date CKD (chronic kidney disease) stage 3, GFR 30-59 ml/min Fibrocystic breast determined by biopsy High blood pressure Hyperlipidemia Hypertension Impaired fasting glucose Malignant neoplasm of upper-outer quadrant of left breast in female, estrogen receptor positive 03/31/2017 Obstructive sleep apnea on CPAP Proteinuria Tubular adenoma of colon 05/15/2023 Past Surgical History: Procedure Laterality Date BREAST BIOPSY Right 11/01 SECTION x 2 HAND SURGERY Right IR ARTERIOGRAM CEREBRAL 05/19/2022 IR Arteriogram Cerebral 05/19/2022 Joanna Watts MD [facility] RAD IR ARTERIOGRAM CEREBRAL 01/31/2023 IR Arteriogram Cerebral 01/31/2023 Joanna Watts MD [facility] IR DRAIN CHECK/CHANGE/REMOVE 11/20/2017 IR Drain Check/Change/Remove 11/20/2017 Marcos Dey MD [facility] IR EMBOLIZATION CEREBRAL 07/24/2022 IR Embolization Cerebral 07/24/2022 Joanna Watts MD [facility] RAD IR MEDIPORT REMOVAL 01/25/2018 IR Mediport Removal 01/25/2018 Scooby Muñoz APRN [facility] RAD PRG EMG, LARYNX N/A 11/02/2015 FACIAL NERVE MONITORING, SETUP LARYNGEAL performed by Valentina Lucas MD at [facility] MAIN OR PRO BREAST RECONSTRUCTION IMMT/DLYD W/TISS SOLUTION ANALYST SBSQ EXPANSION Bilateral 04/26/2017 BREAST RECONSTRUCTION, IMMEDIATE OR DELAYED, W/ TISSUE SOLUTION ANALYST, INCLUDING SUBSEQUENT EXPANSION (WRVU 18.5) performed by Andre Gimenez MD at [facility] MAIN OR PRO BREAST RECONSTRUCTION W FREE FLAP Bilateral 04/26/2017 @BREAST RECONSTRUCTION W/ FREE FLAP, SUSAN (WRVU 42.58) performed by Andre Gimenez MD at [facility] [place] PRO BREAST RECONSTRUCTION W/LATSMS D/SI FLAP WO PRSTHC IMPL Bilateral 12/12/2017 @BREAST RECONSTRUCTION W/ LAT DORSI FLAP,W/O IMPLANT, SUSAN (WRVU 23.36) performed by Andre Gimenez MD at [facility] MAIN OR PRO DEBRIDEMENT SUBCUTANEOUS TISSUE 20 SQCM/< 06/22/2017 DEBRIDEMENT SKIN AND SUBCU, BREAST (WRVU 1.01) performed by Andre Gimenez MD at [facility] MAIN OR PRO EXPLORE PARATHYROID GLANDS N/A 11/02/2015 PARATHYROIDECTOMY OR EXPLORATION OF PARATHYROID(S) performed by Valentina Lucas MD at [facility] MAIN OR PRO FULL THICK GRFT TRUNK <20 SQCM Bilateral 04/26/2017 FTSG, FREE, DIR CLOSE DONOR SITE, TRUNK, 20 SQ CM OR LESS (WRVU 9.15) performed by Andre Gimenez MD at [facility] MAIN OR PRO INCISION OF LYMPH CHANNELS Left 10/18/2018 INCISION & DRAINAGE LYMPHOCELE (WRVU 6.81) performed by Andre Gimenez MD at [facility] OR [facility] IV INJ TO TEST BLOOD FLOW IN FLAP/GRAFT Left 10/18/2018 IV INJECTION, AGENT TO TEST VASC FLOW IN FLAP OR GRAFT, ENT (WRVU 1.95) performed by Andre Gimenez MD at [facility] MAIN OR PRO MASTECTOMY, SIMPLE, COMPLETE Bilateral 04/26/2017 MASTECTOMY, SIMPLE, COMPLETE-SUSAN (WRVU 15.85) performed by Jolie Menendez MD at [facility] MAIN OR [facility] PARTIAL REMOVAL OF RIB Bilateral 04/26/2017 EXCISION OF RIB, PARTIAL (WRVU 7.26) performed by Andre Gimenez MD at [facility] MAIN OR [facility] PERM OCCLUSION/EMBOLIZATION, PERCUT, SEMICONDUCTOR LAB TECHNICIAN N/A 07/24/2022 @TRANSCATHETER OCCLUSION/EMBOLIZATION FOR TUMOR DESTRUCTION (WRVU 20.12) performed by Joanna Watts MD at [facility] [place] PRO REMOVE ARMPITS LYMPH NODES COMPLT Left 04/26/2017 LYMPHADENECTOMY, AXILLARY, COMPLETE (WRVU 13.87) performed by Jolie Menendez MD at [facility] MAIN OR PRO REPLACE TISSUE SOLUTION ANALYST Bilateral 12/12/2017 TISSUE SOLUTION ANALYST REPLACEMENT, WITH PERMANENT PROSTHESIS, SUSAN (WRVU 8.01) performed by Andre Gimenez MD at [facility] MAIN OR PRO REVISION RECONSTRUCTED BREAST Left 06/22/2017 REVISION OF RECONSTRUCTED BREAST (WRVU 10.41) performed by Andre Gimenez MD at [facility] MAIN OR PRO REVISION RECONSTRUCTED BREAST Bilateral 12/12/2017 REVISION OFRECONSTRUCTED BREAST, SUSAN (WRVU 10.41) performed by Andre Gimenez MD at [facility] MAIN OR PRO THYMECTOMY, TRANSCERVICAL N/A 11/02/2015 THYMECTOMY, TRANSCERVICAL APPROACH performed by Valentina Lucas MD at [facility] OR SHOULDER SURGERY Left UMBILICAL HERNIA REPAIR Family History Problem Relation Age of Onset Breast Cancer Maternal Cousin 45 Dx'd with Stg IV BR CA, in remission (age 48 in 2018); per pt report, genetic test inconclusive Breast Cancer Mother 70 Breast Cancer Maternal Aunt 39 contralateral breast cancer at 50; per pt report, negative genetic testing Prostate Cancer Father 60 Colorectal Cancer Maternal Grandfather 79 Colorectal Cancer Maternal Uncle 68 Stomach Cancer Maternal Cousin 51 Breast Cancer Other 60 Colorectal Cancer Other 64 Ovarian Cancer Other 57 Stomach Cancer Maternal Cousin 57 Social History Social History Narrative Not on file Outpatient medications: Current Outpatient Medications on File Prior to Visit Medication Sig Dispense Refill doxycycline (Vibramycin) 100 mg capsule TAKE TWO CAPSULES BY MOUTH A SINGLE DOSE ferrous sulfate (FeroSul) 325 mg (65 mg iron) tablet 1 tablet. fosfomycin tromethamine (MONUROL) 3 gram Packet DRINK ONE PACKET DISSOLVED IN WATER FOR A SINGLE DOSE ibuprofen (Motrin) 400 mg tablet Take 1 tab q 6 hrs daily as needed naproxen (Naprosyn) 250 mg tablet TAKE ONE TO TWO TABLETS BY MOUTH TWICE A DAY NEEDED FOR MODERATE PAIN AND SWELLING omeprazole (PriLOSEC OTC) [address] tablet 1 CAP daily oxyCODONE (Roxicodone) 5 mg tablet TAKE ONE TO TWO TABLETS BY MOUTH EVERY 4 TO 6 HOURS NEEDED FOR SEVERE PAIN topiramate (Topamax) 25 mg tablet Take 1 tablet by mouth 2 times daily. topiramate (Topamax) 50 mg tablet Take 1 tablet by mouth 2 times daily. phentermine (Ivon-Trim) 15 mg capsule Take 1 capsule by mouth daily. valACYclovir (Valtrex) 500 mg tablet TAKE ONE TABLET BY MOUTH TWICE A DAY FOR 3 DAYS valsartan (Diovan) 320 mg tablet Take 1 tablet by mouth daily. acetaminophen (Tylenol) 325 mg tablet Take 2 tablets by mouth every 4 hours as needed for Pain. 30 tablet 1 Stelara 45 mg/0.5 mL subcutaneous injection MAINTENANCE: INJECT 1 SYRINGE SUBCUTANEOUSLY EVERY 12 WEEKS. REFRIGERATE. DO NOT FREEZE 0.5 mL 2 exemestane (Aromasin) 25 mg tablet Take 1 tablet by mouth daily. 90 tablet 3 prasterone, dhea, (Intrarosa) 6.[address] 6.5 mg vaginally daily. 30 each 6 clobetasoL (Temovate) 0.05 % Ointment Apply to vulva scant amount twice a day for 2 weeks and then nightly 30 g 0 fluconazole (Diflucan) 150 mg tablet Take 1 tablet by mouth every 3 days. 2 tablet 0 acetaminophen (Tylenol) 500 mg tablet Take 1,000 mg by mouth every 6 hours as needed for Pain. fluorouraciL (EFUDEX) 5 % Cream Apply a thin layer to affected areas on the right upper lip twice daily (morning and night) as tolerated for 2 weeks. CAUTION: THIS MEDICATION IS TOXIC TO PETS. (Patient not taking: Reported on 11/10/2022) 40 g 0 aspirin 81 mg chewable tablet Take 81 mg by mouth daily. 30 tablet 3 gabapentin (Neurontin) 300 mg capsule One in am, two at night MULTI-VITAMIN ORAL Take 1 tablet by mouth daily. calcium carbonate (CALCIUM 600 ORAL) Take 600 mg by mouth every other day. rosuvastatin (Crestor) 10 mg Tablet TAKE 1 TABLET BY MOUTH DAILY AT BEDTIME dilTIAZem (CARDIZEM CD) 240 mg Capsule, Sust. Release 24 hr Take 240 mg by mouth daily. spironolactone (ALDACTONE) 25 mg Tablet Take 1 tablet by mouth daily. 90 tablet 3 losartan (COZAAR) 100 mg Tablet take 1 tablet by mouth once daily 0 cholecalciferol, Vitamin D3, 125 mcg (5,000 unit) Tablet Take by mouth daily. ferrous gluconate 324 mg (37.5 mg iron) Tablet Take 324 mg by mouth daily. fluoxetine (PROZAC) 40 mg capsule Take 40 mg by mouth daily. No current facility-administered medications on file prior to visit. MEDICATIONS: Allergies Allergen Reactions Penicillins Thrsara DUENAS Penicillin Allergy Risk Assessment 07/20/2022: Moderate Risk Reaction. Patient referred to allergy clinic for pre-op testing. Other Reaction(s): Thrush Sertraline PSORIASIS FLARE Other Reaction(s): Skin Rash ROS: Constitutional - No fevers, chills, weight loss Skin - No rash or itchy skin HEENT - No headaches, visual changes, oral mucosa dryness Resp - No cough, shortness of breath CV - No chest pain, difficulty breathing lying flat, leg swelling GI - No nausea, vomiting,change in bowel habits/abdominal pain - No change in urine output. No pain urinating or blood in urine. Neuro - No weakness. No numbness/ tingling in extremities. MSK- No joint pain/swelling PHYSICAL EXAM: Last value Temperature Heart Rate Blood Pressure Respiratory Rate SpO2 STUDIES: Labs: CBC: Recent Labs 02/01/23 0245 01/24/23 1212 WBC 9.0 -- HGB 12.1 -- PLATELET 332 375* Chemistry: Recent Labs 05/15/23 1315 02/01/23 0245 01/24/23 1212 NA 141 138 143 K 4.7 4.3 4.5 CL 106 108* 106 CO2 22 22 24 BUN 40* 32* 35* CREATININE 1.89* 1.63* 1.91* GLUCOSE 184 79 76 Recent Labs 05/15/23 1315 02/01/23 0245 01/24/23 1212 11/08/22 1002 CALCIUM 9.4 8.6 10.2 10.2 MAGNESIUM 0.95 -- -- 0.89 Time attestation: 30 minutes spent on encounter greater than 50% direct middle school guidance counselor with patient Zackery Dawson MD, MPH Section of Nephrology #[id number] documented in this encounter Plan of Treatment Upcoming Encounters Date Type Department Care Team (Late st Contact Info) Description 01/22/2024 10:30 AM EST Appointment Mammography/[place] [phone] Ladi Mendosa MD [facility] HEMATOLOGY/[place] [address] 01/30/2024 11:30 AM EST Office Visit Dermatology at [address] [phone] Nilda Luis MD [facility] DR LIDIA [place] [address] 02/15/2024 9:30 AM EST Appointment [place] [address] [place] [address] Scheduled Orders Name Type Priority Associated Diagnoses Orde r Schedule Protein/Creatinine Ratio, urine Lab Routine Chronic kidney disease, unspecified CKD stage Expected: 05/15/2023, Expires: 05/15/2024 U Albumin/Cre Ratio Lab Routine Chronic kidney disease, unspecified CKD stage Expected: 05/15/2023, Expires: 05/15/2024 US Retroperitoneal Complete Imaging Routine Chronic kidney disease, unspecified CKD stage Expected: 05/14/2024, Expires: 11/14/2024 documented as of this encounter Procedures Procedure Name Priority Date/Time Associated Diagnosis Comments PROTEIN/CREATININE RATIO, URINE Routine 05/15/2023 3:00 PM EDT U ALBUMIN/CRE RATIO Routine 05/15/2023 3 :00 PM EDT documented in this encounter Results * (ABNORMAL) Protein/Creatinine Ratio, urine (05/15/2023 3:00 PM EDT) U Creatinine 82 mg/dL [facility] U Protein Ran 45(H) 0 - 12 mg/dL [facility] Prot/Cre Ratio 0.5 ratio [facility] Urine Urine / Unknown 05/15/2023 3 :00 PM EDT 05/15/2023 4:35 PM EDT Narrative Resulting Agency Comment Spec In Lab Zackery Dawson MD URINE ORDERABLES [facility] [place] [address] * (ABNORMAL) U Albumin/Cre Ratio (05/15/2023 3:00 PM EDT) Alb/Cr Ratio, Random 430(H) 0 - 29 mcg/mg Cr [facility] Comment: Reference Ranges: <30 mcg/mg: Normal 30-300 mcg/mg: Moderately increased albuminuria.* >300 mcg/mg: Severely increased albuminuria. * ACEI or ARB recommended if diabetic; suggested if BP>130/80 without diabetes ACEI or ARB strongly recommended if diabetic; recommended if BP>130/80 without diabetes Two of three specimens collected within a 3 to 6 month period should be abnormal before considering a patient to have albuminuria. Transient causes: exercise, fever, infection, CHF, marked hyperglycemia or hypertension. Persistent albuminuria indicates CKD and is an independent risk factor for ASCVD. ADA Standards of Medical Care in Diabetes-2016; KDIGO: Kidney International Supplements (2012) 2, 357? 362 U Albumin Conc, Random 352.8 mg/L [facility] U Creatinine 82 mg/dL [facility] Urine Urine / Unknown 05/15/2023 3 :00 PM EDT 05/15/2023 4:35 PM EDT Narrative Resulting Agency Comment Spec In Lab Zackery Dawson MD URINE ORDERABLES [facility] [place] [address] documented in this encounter Visit Diagnoses Diagnosis Chronic kidney disease, unspecified CKD stage Hyperaldosteronism Hyperaldosteronism, unspecified documented in this encounter Care Teams Career Technology Teacher Relationship Specialty Start Date End Date Trinh Coates MD [address] [place] [address] PCP - General 01/11/10 documented as of this encounter
--- OUTSIDE RECORDS SUMMARY | 2023-09-07 11:23 | XMS_ITS | Encounter Summary ---
Author Organization [facility] [place] [address] Care Team Providers Care A Class Lineman Name Role Phone Trinh Coates MD Primary Care Provider Encounter Details Date Type Department Care Team (Late st Contact Info) Description 02/05/2023 Telephone [place] [phone] [place] [address] Social History Tobacco Use Types Packs/Day Years [...] encounter Miscellaneous Notes * Telephone Encounter - Joanna Watts MD - 02/05/2023 1:00 PM EST Rec'd portal message about nosebleed and pending ED evaluation. Called Phillip's cell phone and left a message. We look forward to hearing from them and are ready to help however we can with her evaluation. Joanna Watts MD Open cerebrovascular and endovascular neurosurgery attending documented in this encounter Plan of Treatment Upcoming Encounters Date Type Department Care Team (Late st Contact Info) Description 01/22/2024 10:30 AM EST Appointment Mammography/[place] [address] Ladi Mendosa MD [facility] HEMATOLOGY/[place] [address] 01/30/2024 11:30 AM EST Office Visit Dermatology at [facility] [address] [place] [phone] Nilda Luis MD [facility] [place] [address] 02/15/2024 9:30 AM EST Appointment [place] [address] [place] [address] documented as of this encounter Visit Diagnoses Not on filedocumented in this encounter Care Teams A Class Lineman Relationship Specialty Start Date End Date Trinh Coates MD [employer] [address] [place] [address] PCP - General 01/11/10 documented as of this encounter
--- OUTSIDE RECORDS SUMMARY | 2023-09-07 11:23 | XMS_ITS | Encounter Summary ---
Author Organization [facility] [place] [address] Care Team Providers Care Gas Inspector Name Role Phone Trinh Coates MD Primary Care Provider [phone] Encounter Details Date Type Department Care Team (Late st Contact Info) Description 05/21/2023 3:05 PM EDT Ancillary Procedure [place] [phone] Marcos Dey MD [facility] [place] [address] Social History Tobacco Use Types Packs/Day Years [...] 01/22/2024 10:30 AM EST Appointment Mammography[place] [phone] Ladi Mendosa MD [facility] HEMATOLOGY/[place] [address] 01/30/2024 11:30 AM EST Office Visit Dermatology at [facility] [address] [place] [address] Nilda Luis MD [facility] DR LID[address] [place] [address] 02/15/2024 9:30 AM EST [place] [phone] [place] [address] documented as of this encounter Procedures Procedure Name Priority Date/Time Associated Diagnosis Comments FILM LIBRARY STORAGE ONLY MR SPINE Routine 05/21/2023 3:00 PM EDT documented in this encounter Results * Film Library- Storage Only MR Spine (05/21/2023 3:00 PM EDT) Narrative [facility] - 05/21/2023 3:00 PM EDT This exam is auto-finalizing. It's purpose is for storage only. Marcos Dey MD IMG FILM LIBRARY ORD ERABLES [place], [place] documented in this encounter Visit Diagnoses Not on filedocumented in this encounter Care Teams Gas Inspector Relationship Specialty Start Date End Date Trinh Coates MD [address] [place] [address] PCP - General 01/11/10 documented as of this encounter
--- OUTSIDE RECORDS SUMMARY | 2023-09-07 11:23 | XMS_ITS | Encounter Summary ---
Author Organization [facility] [place] [address] Care Team Providers Care Machine Puller Over Name Role Phone Trinh Coates MD Primary Care Provider [phone] Encounter Details Date Type Department Care Team (Late st Contact Info) Description 03/01/2023 Telephone [place] [address] Gerald Zuluaga, RN Social History Tobacco Use Types Packs/Day [...] Encounter - Tawana Booth RN - 03/05/2023 3:34 PM EST Received call back from Xiomara at [facility]. They will proceed with patient's surgery with her on aspirin. * Telephone Encounter - Gerald Zuluaga RN - 03/05/2023 12:22 PM EST Attempted call x1, left message on nurse line stating that Wendy should not stop her aspirin if at all possible. Requested they return call to further discuss. * Telephone Encounter - Gerald Zuluaga RN - 03/01/2023 5:05 PM EST Copied from [facility] #[id number]. Topic: Specialty Dept CRMs - Generic Call >> Mar 01, 2023 3:39 PM Melonie Carcamo wrote: Specialist: Joanna Watts MD Relationship (if other than patient-full name): Xiomara - [facility] Reason for Call: Xiomara states patient is scheduled to have left knee surgery on 04/20/23. Xiomara askedif patient's aspirin 81 mg chewable tablet could be held for 5 days prior to patient's surgery. Please call to advise. documented in this encounter Plan of Treatment Upcoming Encounters Date Type Department Care Team (Late st Contact Info) Description 01/22/2024 10:30 AM EST Appointment Mammography/DXA at [place] [phone] Ladi Mendosa MD [facility] HEMATOLOGY/[place] [address] 01/30/2024 11:30 AM EST Office Visit Dermatology at [address] [address] Nilda Luis MD [facility] [address] [place] [address] 02/15/2024 9:30 AM EST Appointment Radiology at [place] [phone] [place] [address] documented as of this encounter Visit Diagnoses Not on filedocumented in this encounter Care Teams Machine Puller Over Relationship Specialty Start Date End Date Trinh Coates MD [address] [place] [address] PCP - General 01/11/10 documented as of this encounter
--- OUTSIDE RECORDS SUMMARY | 2023-09-07 11:23 | XMS_ITS | Encounter Summary ---
Author Organization [facility] Address [facility] [place] [address] Care Team Providers Care Matcher Name Role Phone Trinh Coates MD Primary Care Provider [phone] Encounter Details Date Type Department Care Team (Latest Contact Info) Description 07/17/2023 Travel Social History Tobacco Use Types Packs/Day Years [...] 01/22/2024 10:30 AM EST Appointment Mammography[place] [address] Ladi Mendosa MD [facility] HEMATOLOGY/[place] [address] 01/30/2024 11:30 AM EST Office Visit Dermatology at [facility] [address] [place] [phone] Nilda Luis MD [facility] [address] [place] [address] 02/15/2024 9:30 AM EST [place] [address] [place] [address] documented as of this encounter Visit Diagnoses Not on filedocumented in this encounter Care Teams Matcher Relationship Specialty Start Date End Date Trinh Coates MD [facility] [address] [facility] [address] [place] [address] PCP - General 01/11/10 documented as of this encounter
--- OUTSIDE RECORDS SUMMARY | 2023-09-07 11:23 | XMS_ITS ---
Author Organization [facility] [place] [address] Care Team Providers Care Wildlife Science Professor Name Role Phone Trinh Coates MD Primary Care Provider [phone] Active Problems Problem Noted Date Diagnosed Date Acute lateral meniscal injury of left knee 05/14 Arthritis of right acromioclavicular joint 05/14 Biceps tendinitis of right shoulder 05/15/2023 Chronic kidney disease 05/15/2023 External hemorrhoids 05/15/2023 History of ankle surgery 05/15/2023 Hx of knee surgery 05/15/2023 History of hypothyroidism 05/15/2023 Hx of bilateral mastectomy 05/15/2023 Hyperaldosteronism 05/15/2023 Hypomagnesemia 05/15/2023 Leukocytosis 05/15/2023 Malignant neoplasm of breast 05/15/2023 Right lateral epicondylitis 05/15/2023 Right rotator cuff tendonitis 05/15/2023 Rotator cuff tear, right 05/15/2023 Sciatica 05/15/2023 Screening for colon cancer 05/15/2023 Sessile colonic polyp 05/15/2023 Trigger ring finger of right hand 05/15/2023 Tubular adenoma of colon 05/15/2023 Headache 01/31/2023 Acute cystitis 12/12/2022 Overview (05/15/2023): Problem Code: N30.01; Problem Code Type: ICD-10; Dyspnea 11/03/2022 Overview (05/15/2023): 11/03/2022 - Comments only - Trinh Coates MD - Has had chemotherapy for breast cancer. Other risk factors for CHF include HTN, obesity, sleep apnea, prediabetes. Last ECHO was 5 years ago, will repeat along with BNP. Denies any chest pain, if progressive or any chest pain would proceed with stress testing. 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 Neprology recommendations for contrast based studies: If using contrast would plan hydartion both before and following procedure to minimize risk for contrast injury following either approach with NS: Outpatients - 3 mL/kg over one hour preprocedure and 1 to 1.5 mL/kg/hour during and for four to six hours postprocedure, with administration of at least 6 mL/kg postprocedure. Inpatients - 1 mL/kg/hour for 6 to 12 hours preprocedure, intraprocedure, and for 6 to 12 hours postprocedure. 05/19/2022: DSA showing 4mm AXEL aneurysm, likely carotid cave 07/24/2022: Flow diverting stent placement of right ICA aneurysm via right common femoral artery, Dr. Watts Discharged with ASA 81mg and Plavix 75mg daily. 01/2023 DSA no recurrence, DAPT stopped Abnormal imaging of central nervous system 03/29 Overview (05/15/2023): Problem Code: R90.89; Problem Code Type: ICD-10; Intracranial aneurysm 03/27/2022 Overview (05/15/2023): s/p stenting 07/2021 [facility] neurosurgery Adjustment reaction 02/16/2022 Overview (05/15/2023): 02/16/2022 - Comments only - Trinh Coates MD - supportive listening Problem Code: F43.20; Problem Code Type: ICD-10; Family history of neurological disorder 02/17/20 22 Overview (05/15/2023): 02/16/2022 - Unchanged - Trinh Coates MD - MRA brain ordered given 3 family members, including BOTH parents with brain aneurysms. Problem Code: Z82.0; Problem Code Type: ICD-10; Dysuria 11/17/2021 Overview (05/15/2023): Problem Code: R30.0; Problem Code Type: ICD-10; 11/17/2021 - Comments only - Tien Oni BURGOS - Symptoms consistent with uncomplicated UTI. Urine positive for leukocytes and blood. We will send for culture. Empiric antibiotic. She is prone to vaginal candidiasis so we will send Diflucan to have on hand. She will call if symptoms fail to improve over the next several days. Problem Code: R30.0; Problem Code Type: ICD-10; Osteopenia 10/26/2021 Overview (05/15/2023): 10/2021 Femoral neck T score -1.1 Acute stress disorder 06/15/2021 Overview (05/15/2023): Problem Code: F43.0; Problem Code Type: ICD-10; Disorder of skin or subcutaneous tissue 02/01/20 21 Overview (05/15/2023): Problem Code: L98.9; Problem Code Type: ICD-10; Acute bronchospasm 11/19/2020 Overview (05/15/2023): 11/19/2020 - Comments only - Trinh Coates MD - pollo woodall. Albuterol with spacer 2 puffs q 4-6 hours prn Prednisone 40 mg daily for 5 days, then 20 mg daily for 5 days. Problem Code: J98.01; Problem Code Type: ICD-10; Acute upper respiratory infection 11/19/2020 Overview (05/15/2023): Problem Code: J06.9; Problem Code Type: ICD-10; Foot pain 08/09/2020 Overview (05/15/2023): Problem Code: M79.673; Problem Code Type: ICD-10; Benign paroxysmal positional vertigo 08/15/2019 Overview (05/15/2023): Problem Code: H81.10; Problem Code Type: ICD-10; Ingrowing nail 08/15/2019 Overview (05/15/2023): Problem Code: L60.0; Problem Code Type: ICD-10; Pain in joint of right shoulder 07/16/2019 Overview (05/15/2023): Problem Code: M25.511; Problem Code Type: ICD-10; Pain in left arm 03/07/2019 Overview (05/15/2023): Problem Code: M79.602; Problem Code Type: ICD-10; Edema of lower extremity 11/26/2018 Overview (05/15/2023): on spironolactone Normal ECHO 11/2022 Syncope and collapse 10/23/2018 Overview (05/15/2023): Problem Code: R55; Problem Code Type: ICD-10; Stage 3b chronic kidney disease 10/17/2018 Overview (05/15/2023): 02/02/2020 - Comments only - Trinh Coates MD - stable based on recent labs, continue to follow BMP and magnesium q 3 months. Candidiasis of vagina 07/17/2018 Overview (05/15/2023): Problem Code: B37.3; Problem Code Type: ICD-10; Lymphedema 07/17/2018 Overview (05/15/2023): Left arm Noninflammatory disorder of vulva or perineum Overview (05/15/2023): Problem Code: N90.9; Problem Code Type: ICD-10; History of breast cancer 12/12/2017 Hyperglycemia 11/13/2017 Overview (05/15/2023): Problem Code: R73.9; Problem Code Type: ICD-10; Prediabetes 11/13/2017 Ulceration of vulva 11/12/2017 Overview (05/15/2023): 11/12/2017 - Comments only - Trinh Coates MD - likely herpes. Viral culture obtained. Start VALTREX 500 mg po BID for 3 days. If culture negative and not improving, to [employer]Y ASSOCIATE. I told her that if it is herpes she needs to let her oncologist know prior to this weeks chemotherapy dosing. Problem Code: N76.6; Problem Code Type: ICD-10; Renal function test abnormal 10/17/2017 Overview (05/15/2023): Problem Code: R94.4; Problem Code Type: ICD-10; Seroma of breast 09/13/2017 Bacterial conjunctivitis 09/07/2017 Hypokalemia 07/20/2017 Surgery follow-up 05/10/2017 Abdominal wound dehiscence 05/10/2017 S/P breast reconstruction, bilateral 04/27/2017 Malignant neoplasm of upper- outer quadrant of left breast in female, estrogen receptor positive 03/31/2017 Neuralgia of left sciatic nerve 03/16/2017 Calculus of kidney 03/02/2017 Left ureteral stone 03/02/2017 Personal history of other en docrine, nutritional and metabolic disease 03/02/2017 Hypothyroidism 08/23/2016 Overview (05/15/2023): Problem Code: E03.9; Problem Code Type: ICD-10; Increased frequency of urination 08/23/2016 Overview (05/15/2023): 08/23/2016 - Comments only - Trnih Coates MD - We will check UA to make sure that there is no blood in her urine. If urine culture is negative, or symptoms do not resolve with Cipro 500 twice a day for 7 days, would proceed with pelvic/bladder ultrasound. Problem Code: R35.0; Problem Code Type: ICD-10; Hematuria 08/18/2016 Overview (05/15/2023): Problem Code: R31.9; Problem Code Type: ICD-10; Lump on face 01/26/2016 Pain in thoracic spine 01/05/2016 Overview (05/15/2023): Problem Code: M54.9; Problem Code Type: ICD-10; Dysphagia 11/25/2015 Overview (05/15/2023): 11/29/2015 - Comments only - Trinh Coates MD - this may be related to some reflux, so suggested that she start back on PPI. Problem Code: R13.10; Problem Code Type: ICD-10; Hyperparathyroidism 11/02/2015 Abnormal auditory perception 10/27/2015 Tinnitus 07/15/2015 Overview (05/15/2023): saw ENT in 2016 Paresthesia 05/12/2015 Overview (05/15/2023): Problem Code: R20.2; Problem Code Type: ICD-10; Exophthalmos 04/09/2015 Fatigue 02/03/2015 Overview (05/15/2023): 07/04/2019 - Comments only - Trinh Coates MD - will check CBC and ferritin. Continue CPAP. Try stopping atorvastatin for few weeks, call me if symptoms are better off. Problem Code: R53.83; Problem Code Type: ICD-10; Problem Code: R53.83; Problem Code Type: ICD-10; Onychomycosis due to dermatophyte 02/03/2015 Overview (05/15/2023): Problem Code: B35.1; Problem Code Type: ICD-10; Obstructive sleep apnea (adult) (pediatric) 10/21 OA (osteoarthritis) 11/12/2014 Overweight(278.02) 11/12/2014 Hypercalcemia 08/12/2014 Overview (05/15/2023): Problem Code: E83.52; Problem Code Type: ICD-10; Low back pain 08/12/2014 Overview (05/15/2023): Problem Code: M54.5; Problem Code Type: ICD-10; Pain in finger 08/12/2014 Overview (05/15/2023): Problem Code: M79.646; Problem Code Type: ICD-10; Irregular bleeding 05/14/2014 Gastritis 02/09/2014 Lichen simplex chronicus 12/22/2013 Overview (05/15/2023): Problem Code: L28.0; Problem Code Type: ICD-10; Vulvar rash 12/11/2013 Hypertension 03/15/2013 Depression 03/15/2013 Bursitis of shoulder 12/30/2012 Attention deficit disorder (ADD) 12/25/2012 Overview (05/15/2023): no medications Herpes, genital 06/24/2009 Overview (05/15/2023): Problem Code: 054.10; Problem Code Type: ICD-9; Herpesvirus infection 06/24/2009 Overview (05/15/2023): valtrex prn Impaired fasting glucose 08/12/2006 Overview (05/15/2023): Problem Code: R73.01; Problem Code Type: ICD-10; Obesity 2006 Overweight 2006 Overview (05/15/2023): 08/12/2014 - Comments only - Trinh Coates MD - She is congratulated on her recent weight loss. Fibrocystic breast disease 02/19/1999 Overview (05/15/2023): Problem Code: N60.19; Problem Code Type: ICD-10; Problem Code: 610.1; Problem Code Type: ICD-9; History of urinary stone 02/19/1999 Hyperlipidemia 02/19/1999 Overview (05/15/2023): on statin Proteinuria 02/19/1999 Psoriasis 02/19/1999 Overview (05/15/2023): babar Current Oncology Plans No current plan information found. Past Plans ADULT TREATMENT Plan Name Start Date Discontinue Date Treatment Medications Discontinue Reason Plan Provider Cycles BCN AMB ONC BREAST CANCER - PACLitaxel (DOSE DENSE) 018 03/12/2018 PACLitaxeL (Taxol) in Non-PVC sodium chloride 0.9% 250 mL infusion Therapy Complete Josias Barnett MD 4 of 4 cycles started BCN AMB ONC BREAST CANCER - DOXOrubicin / CYCLOPHOSPHAMIDE (DOSE DENSE) 018 10/01/2017 cycloPHOSphamide (Cytoxan) in sodium chloride 0.9% 250 mL infusionDOXOrubicin (Adriamycin) Therapy Complete Gustavo Mota MD 4 of 4 cycles started Radiation Treatments * No radiation treatments are documented for this patient in [facility]. Treatments may have been administered in another system. Lifetime Dose Tracking * Chemical Lifetime Dose Automatic Entry Manual Entr y doxorubicin 236.163 mg/m2 (439.2 mg) 236.163 mg/m2 (4 39.2 mg) 0 mg/m2 (0 mg)
--- OUTSIDE RECORDS SUMMARY | 2023-09-07 11:23 | XMS_ITS | Encounter Summary ---
Author Organization [facility] [place] [address] Care Team Providers Care Prototype Technician Name Role Phone Trinh Coates MD Primary Care Provider [phone] Reason for Visit * Reason Onset Date Comments Appointment 05/25/2023 Encounter Details Date Type Department Care Team (Late st Contact Info) Description 05/25/2023 [place] [address] [place] [address] Appointment Social History Tobacco Use Types Packs/Day Years [...] * Telephone Encounter - Jazmyn Bowen - 05/25/2023 2:30 PM EDT Called patient scheduled for 06/[address] Watts ----- Message from Joanna Watts MD sent at 05/25/2023 10:38 AM EDT ----- Regarding: FW: Aspiration Can we have this patient f/u with one of our PAs or myself in 2-3 weeks please? ----- Message ----- From: Isidoro Cao DO Sent: 05/24/2023 5:40 PM EDT To: Marilin Patel MD; Joanna Watts MD Subject: Aspiration Hello Catie Watts and Jorge, Touching base about this mutual patient that we had been asked to aspirate/sample fluid of the psoas/facet. We were able to place our needles in the offending areas but we did not get much of anything to return. We washed out the areas with sterile saline and sent that off for culture in hopes we can get something to grow. I hope we were able to help out in some way. - Isidoro Interventional Radiology documented in this encounter Plan of Treatment Upcoming Encounters Date Type Department Care Team (Late st Contact Info) Description 01/22/2024 10:30 AM EST Appointment Mammography/DXA at [place] [phone] Ladi Mendosa MD [facility] [place]ATOLOGY/[place] [address] 01/30/2024 11:30 AM EST Office Visit Dermatology at [address] [phone] Nilda Luis MD [facility] [address] [address] 02/15/2024 9:30 AM EST [place] [address] [place] [address] documented as of this encounter Visit Diagnoses Not on filedocumented in this encounter Care Teams Prototype Technician Relationship Specialty Start Date End Date Trinh Coates MD [facility] [address] [place] [address] PCP - General 01/11/10 documented as of this encounter
--- OUTSIDE RECORDS SUMMARY | 2023-09-07 11:23 | XMS_ITS | Encounter Summary ---
Author Organization Counts Include [facility] Address [facility] [place] [address] Care Team Providers Care Electrical Logger Name Role Phone Trinh Coates MD Primary Care Provider [phone] Encounter Details Date Type Department Care Team (Late st Contact Info) Description 05/15/2023 Orders Only Nephrology [place] [phone] Zackery Dawson MD [facility] [place] [address] Chronic kidney disease, unspecified CKD stage Social History Tobacco Use Types Packs/Day Years [...] 01/22/2024 10:30 AM EST Appointment Mammography/[place] [phone] Ladi Mendosa MD [facility] HEMATOLOGY/[place] [address] 01/30/2024 11:30 AM EST Office Visit Dermatology at [facility] [address] [place] [address] Nilda Luis MD [facility] [address] [place] [address] 02/15/2024 9:30 AM EST [place] [phone] [place] [address] documented as of this encounter Results * Vitamin D, 25-Hydroxy (05/15/2023 1:15 PM EDT) Pathologist [facility] 25-OH Vit D Total 62 21 - 100 ng/mL [facility] 25-OH Vit D Interp Sufficient [facility] Blood 05/15/2023 1:15 PM EDT 05/15/2023 1:18 PM EDT Narrative Resulting Agency Comment Spec In Lab Zackery Dawson MD CHEMISTRY ORDERABLES [facility] [place] [place] [address] * PTH (05/15/2023 1:15 PM EDT) Pathologist [facility] PTH 47 15 - 65 pg/mL [facility] Blood 05/15/2023 1:15 PM EDT 05/15/2023 1:18 PM EDT Narrative Resulting Agency Comment Spec In Lab Zackery Dawson MD CHEMISTRY ORDERABLES [facility] [place] [address] * Magnesium (05/15/2023 1:15 PM EDT) Pathologist [facility] Magnesium 0.95 0.69 - 1.07 mmol/L [facility] Blood 05/15/2023 1:15 PM EDT 05/15/2023 1:18 PM EDT Narrative Resulting Agency Comment Spec In Lab Zackery Dawson MD CHEMISTRY ORDERABLES [facility] [place] [address] * (ABNORMAL) Basic Metabolic Panel (non-fasting) (05/15/2023 1:15 PM EDT) Glucose Lvl 184 65 - 199 mg/dL [facility] Comment:Diabetes: >=200 mg/d L plus symptoms BUN 40(H) 8 - 18 mg/dL [facility] Creatinine 1.89(H) 0.70 - 1.20 mg/dL [facility] Sodium 141 135 - 145 mmol/L [facility] Potassium 4.7 3.5 - 5.0 mmol/L [facility] Comment: Please note: ??Patients with WBC >100,000 may have falsely elevated Potassium levels. ??For accurate Potassium quantification in these patients send serum separator tube (gold top) for subsequent determinations. ??Contact the Clinical Chemistry Laboratory if there are any questions. Chloride 106 98 - 107 mmol/L [facility] CO2 22 22 - 31 mmol/L [facility] Anion Gap 13 5 - 15 mmol/L [facility] Calcium 9.4 8.5 - 10.5 mg/dL [facility] Estimated GFR 30(L) >=60 mL/min/1. 73 m?? [facility] Comment: This patient's estimated GFR was calculated using the 2020 CKD-EPI equation. The estimated GFR can vary from the measured GFR by up to 30% in the absence of rapidly changing kidney function. Assessment of the estimated GFR is not appropriate when creatinine concentrations are rapidly changing. For clinical situations in which a more precise estimate of GFR is necessary, consider alternative methods of GFR estimation such as a 24-hour urine creatinine clearance. Assignment of CKD stage 1-5 for patients with an eGFR near the transition point between stages may be based on clinical assessment of muscle mass and symptoms in addition to eGFR. Blood 05/15/2023 1:15 PM EDT 05/15/2023 1:18 PM EDT Narrative Resulting Agency Comment Spec In Lab Zackery Dawson MD CHEMISTRY ORDERABLES [facility] [place] [address] documented in this encounter Visit Diagnoses Diagnosis Chronic kidney disease, unspecified CKD stage documented in this encounter Care Teams Electrical Logger Relationship Specialty Start Date End Date Trinh Coates MD [facility] [address] [place] [address] PCP - General 01/11/10 documented as of this encounter
--- OUTSIDE RECORDS SUMMARY | 2023-09-07 11:23 | XMS_ITS | Clinical Summary ---
Author Organization [facility] Address [facility] [place] [address] Care Team Providers Care Swabber Name Role Phone Trinh Coates MD Primary Care Provider [phone] Allergies Active Allergy Reactions Criticality Noted Date Comments Penicillins High 03/15/2013 Thrush PAT Penicillin Allergy Risk Assessment 07/20/2022: Moderate Risk Reaction. Patient referred to allergy clinic for pre-op testing. Other Reaction(s): Thrush Sertraline Medium 11/12/2014 PSORIASIS FLARE Other Reaction(s): Skin Rash Medications Medication Sig Dispensed Refills Start Date End Date Status fluoxetine (PROZAC) 40 mg capsule Take 40 mg by mouth daily. 10/31/2012 Active ferrous gluconate 324 mg (37.5 mg iron) TabletIndications:Pro teinuria,Essential hypertension,Hypercal cemia Take 324 mg by mouth daily. Active cholecalciferol, Vitamin D3, 125 mcg (5,000 unit) Tablet Take by mouth daily. Active losartan (COZAAR) 100 mg Tablet take 1 tablet by mouth once daily 0 10/09/2017 Active spironolactone (ALDACTONE) 25 mg Tablet Take 1 tablet by mouth daily. 90 tablet 3 07/23/2018 Active dilTIAZem (CARDIZEM CD) 240 mg Capsule, Sust. Release 24 hr Take 240 mg by mouth daily. Active rosuvastatin (Crestor) 10 mg Tablet TAKE 1 TABLET BY MOUTH DAILY AT BEDTIME 04/26/2020 Active calcium carbonate (CALCIUM 600 ORAL) Take 600 mg by mouth every other day. Active aspirin 81 mg chewable tablet Take 81 mg by mouth daily. 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 CAUTION: THIS MEDICATION IS TOXIC TO PETS. 40 g 09/26/2022 Active Additional Information Patient not taking.Reported on 07/17/2023 acetaminophen (Tylenol) 500 mg tablet Take 1,000 mg by mouth every 6 hours as needed for Pain. Active clobetasoL (Temovate) 0.05 % OintmentIndications:I rritation of vulva Apply to vulva scant amount twice a day for 2 weeks and then nightly 30 g 11/10/2022 Active fluconazole (Diflucan) 150 mg tabletIndications:Dys uria Take 1 tablet by mouth every 3 days. 2 tablet 11/10/2022 Active exemestane (Aromasin) 25 mg tabletIndications:Mal ignant neoplasm of upper-outer quadrant of left breast in female, estrogen receptor positive Take 1 tablet by mouth daily. 90 tablet 3 01/08/2023 Active ibuprofen (Motrin) 400 mg tablet Take 1 tab q 6 hrs daily as needed 11/15/2015 Active valACYclovir (Valtrex) 500 mg tablet TAKE ONE TABLET BY MOUTH TWICE A DAY FOR 3 DAYS Active liraglutide (Victoza 2-Steve) 0.6 mg/0.1 mL (18 mg/3 mL) Pen Injector take 0.6 mg daily for 1 month, then increase to 1.2 mg daily 06/15/2023 Active ustekinumab (Stelara) 45 mg/0.5 mL subcutaneous injectionIndications: Psoriasis MAINTENANCE: INJECT 1 SYRINGE SUBCUTANEOUSLY EVERY 12 WEEKS. REFRIGERATE. DO NOT FREEZE 0.5 mL 3 07/17/2023 Active Active Problems Problem Noted Date Diagnosed Date [...] aneurysm 03/27/2022 Overview (05/15/2023): s/p stenting 07/2021 [facility] [place] Adjustment reaction 02/16/2022 Overview (05/15/2023): 02/16/2022 - Comments only - Trinh Coates MD - supportive listening Problem Code: F43.20; Problem Code Type: ICD-10; Family history of neurological disorder 02/17/20 Overview (05/15/2023): 02/16/2022 - Unchanged - Trinh Coates MD - MRA brain ordered given 3 family members, including BOTH parents with brain aneurysms. Problem Code: Z82.0; Problem Code Type: ICD-10; Dysuria 11/17/2021 Overview (05/15/2023): Problem Code: R30.0; Problem Code Type: ICD-10; 11/17/2021 - Comments only - Tien Bunn RPA - Symptoms consistent with uncomplicated UTI. Urine [...] Disorder of skin or subcutaneous tissue 02/01/20 Overview (05/15/2023): Problem Code: L98.9; Problem Code [...] If culture negative and not improving, to SKIN LAP BONDER. I told her that if it is [...] Overview (05/15/2023): 08/23/2016 - Comments only - Trinh Coates MD - We will check UA [...] Tinnitus 07/15/2015 Overview (05/15/2023): saw ENT in 2015 Paresthesia 05/12/2015 Overview (05/15/2023): Problem Code: R20.2; [...] statin Proteinuria 02/19/1999 Psoriasis 02/19/1999 Overview (05/15/2023): stelara Encounters Date Type Department Care Team Description 07/30/2023 [place] [phone] Felisa Chavis 07/17/2023 11:50 AM EDT Laboratory Appointment Lab at [facility] [address] [place] [address] High risk medication use 07/17/2023 11:00 AM EDT Office Visit Dermatology at [facility] [address] [place] [address] Nilda Luis MD Psoriasis; High risk medication use; Neoplasm of unspecified behavior of bone, soft tissue, and skin; Actinic keratoses; Seborrheic keratoses; Lentigo; History of atypical nevus; Sebaceous hyperplasia; Milia 07/17/2023 Travel 06/13/2023 2:00 PM EDT Office Visit Neurosurgery at [facility] [place] [address] Joanna Watts MD Sciatica of right side 06/13/2023 Travel from Last 3 Months Immunizations Name Administration Dates Next Due Moderna Covid-19 Monovalent 12Yr+ (Auto Garage Attendant 100mc g) 06/04/2020,05/06/2020 Td Adult, Unspecified Formulation 03/23/1996 Tdap 08/11/2020,07/01/2007 Zoster (ShingRix), Recombinant 10/31/2021,2021 Family History Medical History Relation Comments Prostate Cancer Father Breast Cancer Maternal Aunt contralateral br east cancer at 50; per pt report, negative genetic testing Breast Cancer Maternal Cousin 1 Dx'd with Stg IV BR CA, in remission (age 48 in 2018); per pt report, genetic test inconclusive Stomach Cancer Maternal Cousin 2 Stomach Cancer Maternal Cousin 3 Colorectal Cancer Maternal Grandfather Colorectal Cancer Maternal Uncle Breast Cancer Mother Breast Cancer Other 1 Colorectal Cancer Other 2 Ovarian Cancer Other 3 Relation Status Comments Father Alive Maternal Aunt Alive Maternal Cousin 1 Alive Maternal Cousin 2 Alive Maternal Cousin 3 Alive Maternal Grandfather (Age 82) Maternal Grandmother (Age 68) Maternal Uncle Alive Mother Alive Other 1 (Age 70) Other 2 (Age 68) Other 3 (Age 57) Paternal Grandfather Paternal Grandmother Sister Alive Social History Tobacco Use Types Packs/Day Years Used Date Smoking Tobacco: Former Cigarettes Q uit: 08/07/1991 Smokeless Tobacco: Never Tobacco Cessation:Counseling Given: Not Answered Alcohol Use Standard Drinks/Week Comments Yes 0 (1 standard drink = 0.6 oz pur e alcohol) socially once a month Sex and Gender Information Value Date Recorded Sex Assigned at Not on file Gender Identity Not on file Sexual Orientation Not on file Last Filed Vital Signs Vital Sign Reading Time Taken Comments Blood Pressure 136/85 06/13/2023 1:45 PM EDT Pulse 79 06/13/2023 1:45 PM EDT Temperature 36.6 ??C (97.8 ??F) 06/13/2023 1:45 PM ED T Respiratory Rate 17 06/13/2023 1:45 PM EDT Oxygen Saturation 95% 06/13/2023 1:45 PM EDT Inhaled Oxygen Concentration - - Weight 84.4 kg (186 lb 1.1 oz) 06/13/2023 1:45 P M EDT Height 152.4 cm (5') 06/13/2023 1:45 PM EDT Body Mass Index 36.34 06/13/2023 1:45 PM EDT Plan of Treatment Upcoming Encounters Date Type Department Care Team (Late st Contact Info) Description 01/22/2024 10:30 AM EST Appointment Mammography/[place] [address] Ladi Mendosa MD [facility] HEMATOLOGY/[place] [address] 01/30/2024 11:30 AM EST Office Visit Dermatology at [address] [place] [phone] Nilda Luis MD [facility] [address] [place] [address] 02/15/2024 9:30 AM EST [place] [address] [place] [address] Health Maintenance Due Date Last Done Comments CT Colonography 1963 Colonoscopy 1963 Colorectal Cancer Screening 1963 FIT DNA 1963 FIT 1963 Sigmoidoscopy (10 year) with FIT yearly 1963 Sigmoidoscopy 1963 HIV screen 06/26/1981 Breast Cancer Share Decision Needed 2003 Advance Directive 06/26/2018 Breast Cancer screening 03/12/2019 03/12/19 18, 01/07/2016, 12/04/2014, Additional history exists Covid-19 Vaccine (2022-2 4 season) 2022 08/29/2021, 01/31/2021, 06/04/2020, Additional history exists Influenza (Flu) vaccine (1 o f 1 - Influenza standard series) 10/21/2023 Pre-DM monitoring (HgbA1C or FBG) 07/16/2024 07/17/2023, 05/15/2023, 02/01/2023, Additional history exists HPV test 11/11/2027 11/10/2022 PAP Smear 11/11/2027 11/10/2022 Tetanus vaccine 08/11/2030 08/11/2020, 06/19, 03/23/1996 Hepatitis C Screening Completed 07/24/2018 Tdap adult Completed 08/11/2020, 07/01/2007 Zoster vaccine Completed 10/31/2021, 08/23/2021 Diabetes Screening (HgbA1C o r Glucose) Discontinued 07/17/2023, 05/15/2023, 02/01/2023, Additional history exists Medical Devices Implanted Type Area Financial Center Manager Device Identifier Shelf Expiration Date Model / Serial / Lot Breast Clip-03/20/2017 Implanted:Qty: 1 on 03/20/2017 by Kim Rodriguez MD Breast Clip Left: Breast [id number] / / [id number] Description:SANGEETHA Breast Clip-03/29/2017 Implanted:03/29 by Kim Rodriguez MD (Quantity not on file) Breast Clip Left: Axilla ULTRACOR [id number] / / [id number] Description:TWIRL Expand,Tiss,Art oura,600cc ([id number]) (Autoreq) - [id number] Implanted:Qty: 1 on 04/26/2017 by [facility] IMPLANTS Right: Breast DO NOT USE [employer] - [id number] 12/17/2020 [id number] / [id number] Expand,Tiss,Art oura,600cc ([id number]) (Autoreq) - [id number] Implanted:Qty: 1 on 04/26/2017 by Andre Gimenez MD [facility] IMPLANTS Left: Breast DO NOT USE [employer] - [id number] 04/01/2020 [id number] / [id number] Mamma,Gel,Xtra, Mod+,Rnd,405cc ([id number]) (Autoreq) - [id number] Implanted:Qty: 1 on 12/12/2017 by Andre Gimenez MD [facility] IMPLANTS [facility] [employer] - [employer] 12/14/2021 [id number] / [id number] Mamma,Gel,Xtra, Mod+,Rnd,405cc ([id number]) (Autoreq) - [id number] Implanted:Qty: 1 on 12/12/2017 by Andre Gimenez MD [facility] IMPLANTS [facility] [employer] 12/13/2021 [id number] / [id number] Coil Embolization Stent Pipeline 5.0x25mm N Coat ([id number] Implanted:Qty: 1 on 07/24/2022 by Joanna Watts MD IMPLANTS Right: Arterial [employer] [facility] - [employer] 06/06/2025 [id number] Description:AXEL Explanted Type Area Financial Center Manager Device Identifier Shelf Expiration Date Model / Serial / Lot Community Artist,Gold, 3.0mm ([id number]) - [id number] Implanted:Qty : 1 Explanted:Qty : 1 on 04/26/2017 by Andre Gimenez MD [facility] IMPLANTS Left: Breast [employer] - - [id number] 01/08/2022 [id number] / / [id number] Community Artist,Gold, 3.0mm ([id number]) - [id number] Implanted:Qty : 1 Explanted:Qty : 1 on 04/26/2017 by Andre Gimenez MD [facility] IMPLANTS Left: Breast [employer] - - [id number] 12/14/2021 [id number] / / [id number] Community Artist,Gold, 3.0mm ([id number]) - [id number] Implanted:Qty : 1 Explanted:Qty : 1 on 04/26/2017 by Andre Gimenez MD [facility] IMPLANTS Right: Breast [employer] - - [id number] 01/08/2022 [id number] / / [id number] Port,Ct,Low Profile,Vacce ss ([id number])-06/19 Implanted:Qty : 1 on 07/03/2017 by Scooby Muñoz APRN Explanted:Qty : 1 on 01/25/2018 by Scooby Muñoz APRN IMPLANTS Right: Vein [employer] - [id number] / / [id number] Description:6fr low profile power vaccess Procedures Procedure Name Priority Date/Time Associated Diagnosis Comments SPECIMEN TO PATHOLOGY Routine 07/17/2023 12:46 PM EDT Neoplasm of unspecified behavior of bone, soft tissue, and skin DIFFERENTIAL, AUTOMATED Routine 07/17/2023 12:07 PM EDT High risk medication use HEMOGRAM Routine 07/17/2023 12:07 PM EDT High risk medication use COMPREHENSIVE METABOLIC PANEL (NON-FASTING) Routine 07/17/2023 12:07 PM EDT High risk medication use HC CBC,PLT & AUTO DIFF Routine 12:07 PM EDT High risk medication use HC VENIPUNCTURE Routine 07/17/2023 12:07 PM EDT High risk medication use SURGICAL PATHOLOGY REPORT Routine 07/17/2023 11:35 AM EDT HPV Routine 11/10/2022 11:30 AM EDT SKIN LAP BONDER CYTOLOGY FINAL REPORT Routine 11/10/2022 11:30 AM EDT HEPATITIS C ANTIBODY Routine 07/24/2018 4:14 PM EDT High risk medications (not anticoagulants) long-term use MAMMO SCREENING CAD AND BOB BILATERAL Routine 03/12/2017 1:38 PM EST Encounter for screening mammogram for breast cancer from Last 3 Months or Most Recently Relevant to Health Maintenance Results * Specimen to Pathology (07/17/2023 12:46 PM EDT) AP Specimen 07/17/2023 12:4 6 PM EDT 07/17/2023 12:46 PM EDT Narrative [facility] - 07/17/2023 12:46 PM EDT Specimen requisition ordered. ??Separate Pathology report to follow Nilda Luis MD PATHOLOGY/CYTOLOGY ORDERABLES Performing Organization Address City/[facility]/ZIP Co de Phone Number [facility] [place] [address] * QuantiFERON-TB Gold (07/17/2023 12:07 PM EDT) QFT Nil 0.029 IU/mL [facility] QFT TB Ag1-Nil -0.003 IU/mL [facility] QFT TB Ag2-Nil 0.006 IU/mL [facility] QFT Mitogen-Nil 9.971 IU/mL [facility] Quantiferon TB Negative Negative [facility] Quantiferon TB Interp M. tuberculosis infection NOT likely A negative specimen should have a TB1 Ag minus Nil value and TB2 Ag minus Nil value of less than 0.35 IU/mL OR a TB1 Ag minus Nil or TB2 Ag minus Nil value greater than or equal to 0.35 IU/mL AND a TB Ag minus Nil value from the same tube of less than 25% of the Nil value. A negative specimen must also have a mitogen minus Nil value greater than or equal to 0.5 IU/mL. A negative QFT-Plus result does not preclude the possibility of M. tuberculosis infection. False negative results can occur due to stage of infection (specimen obtained prior to the development of immune response), co-morbid conditions which affect immune function, or other immunological factors. [facility] Blood 07/17/2023 12:0 7 PM EDT 07/18/2023 11:35 AM EDT Narrative Resulting Agency Comment Spec In Lab Nilda Luis MD CHEMISTRY ORDERABLE S [facility] [place] [address] * (ABNORMAL) Hemogram (07/17/2023 12:07 PM EDT) [facility] WBC 10.0(H) 4.0 - 9.5 x10(3)/[facility] LABORATORY RBC 3.91(L) 4.00 - 5.21 x10(6)/[facility] LABORATORY Hemoglobin 12.3 11.7 - 15.5 g/dL [facility] Hematocrit 39.0 35.7 - 45.8 % [facility] MCV 99.7(H) 82.6 - 94.4 [facility] LABORATORY MCH 31.5 27.1 - 32.0 pg [facility] MCHC 31.5(L) 31.7 - 35.0 g/dL [facility] Platelets 344 145 - 357 x10(3)/[facility] RDWSD 53.5(H) 37.0 - 46.0 [facility] LABORATORY RDWCV 14.4(H) 11.5 - 14.1 % [facility] MPV 9.8 7.6 - 12.9 [facility] nRBC % Auto 0.0 % [facility] nRBC Abs Auto 0.000 0.000 - 0.000 x10(3)/[facility] LABORATORY Blood 07/17/2023 12:0 7 PM EDT 07/17/2023 4:05 PM EDT Narrative Resulting Agency Comment Spec In Lab Nilda Luis MD [place] [address] * (ABNORMAL) Differential, Automated (07/17/2023 12:07 PM EDT) [facility] Neutrophils % 60.1 % [facility] Neutr Abs (ANC) 5.99 1.70 - 6.10 x10(3)/ L [facility] Lymphocytes % 21.1 % [facility] Lymphocytes Abs 2.1 0.9 - 3.2 x10(3)/ L [facility] Monocytes % 11.5 % [facility] Monocyte Abs 1.2(H) 0.3 - 0.9 x10(3)/[facility] LABORATORY Eosinophils % 5.4 % [facility]ORY Eosinophils Abs 0.5(H) 0.0 - 0.4 x10(3)/[facility] LABORATORY Basophils % 1.6 % [facility] Basophils Abs 0.2(H) 0.0 - 0.1 x10(3)/[facility] LABORATORY Immature Gran % 0.30 % [facility] Comment: Immature granulocytes(IG's)percentage and absolute count will include metamyelocytes, myelocytes, and promyelocytes. Blood smears from CBCs yielding IG's will be scanned manually for concordance. If this scan disagrees with the automated IG or if promyelocytes are noted, a manual differential will be performed. Nova Gran Abs 0.03 0.00 - 0.04 x10(3)/[facility] LABORATORY Blood 07/17/2023 12:0 7 PM EDT 07/17/2023 4:05 PM EDT Narrative Resulting Agency Comment Spec In Lab Nilda Luis MD HEMATOLOGY ORDERABL ES [facility] [place] [address] * (ABNORMAL) Comprehensive metabolic panel (non-fasting) (07/17/2023 12:07 PM EDT) Glucose Lvl 91 65 - 199 mg/dL [facility] Comment:Diabetes: >=200 mg/d L plus symptoms BUN 34(H) 8 - 18 mg/dL [facility] Creatinine 1.82(H) 0.70 - 1.20 mg/dL [facility] Sodium 143 135 - 145 mmol/L [facility] Potassium 4.7 3.5 - 5.0 mmol/L [facility] Comment: Please note: ??Patients with WBC >100,000 may have falsely elevated Potassium levels. ??For accurate Potassium quantification in these patients send serum separator tube (gold top) for subsequent determinations. ??Contact the Clinical Chemistry Laboratory if there are any questions. Chloride 107 98 - 107 mmol/L [facility] CO2 22 22 - 31 mmol/L [facility] Anion Gap 14 5 - 15 mmol/L [facility] Calcium 9.5 8.5 - 10.5 mg/dL [facility] Total Protein 7.1 6.1 - 8.0 g/dL [facility] Albumin 4.5 3.2 - 5.2 g/dL [facility] AST 15 0 - 30 unit/L [facility] ALT 16 0 - 30 unit/L [facility] Alk Phos 111(H) 35 - 105 unit/L [facility] Total Bilirubin 0.5 0.2 - 1.3 mg/dL [facility] Estimated GFR 31(L) >=60 mL/min/1. 73 m?? [facility] Comment: This patient's estimated GFR was [...] and symptoms in addition to eGFR. Blood 07/17/2023 12:0 7 PM EDT 07/17/2023 4:00 PM EDT Narrative Resulting Agency Comment Spec In Lab Nilda Luis MD CHEMISTRY ORDERABLE S [facility] [place] [id number] * Surgical Pathology Report (07/17/2023 11:35 AM EDT) Surgical Pathology Report [id number] ? Location: [facility] The signing pathologist has (i) examined the relevant preparation(s) for the specimen(s) and (ii) rendered or confirmed the diagnosis(es). . ?Surgical Pathology DIAGNOSIS L eft medial lower leg, skin shave biopsy: - Pigmented macular ??seborrheic keratosis Electronically signed by: ?Oscar RENEE, PhD, Pk Lanier Verified: ??07/24/2023 8:42 ?? Dermatopathologist, Bone & Soft Tissue Pathologist Performed at: ??-[facility] Dept. of [place]ology, [place] [address] Gaming Cage Worker: Yoselin Pimentel MD, FCAP, ??CLIA Certificate: [id number] SPECIMEN(S) SUBMITTED A - left medial lower leg, skin shave biopsy (1) CLINICAL INFORMATION 1.5 x 0.6 cm ill-defined, brown patch with focal hyperpigmentation and comedonal - like cysts on dermoscopy SPECIMEN PROCESSING A - Labeled/Fixative: Patient demographics, formalin. Quantity/Size: ??Single, 1.5 x 0.8 x 0.1 cm. Tissue Description: Shave of caputo skin with a 0.5 x 0.4 cm brown macule. Sections/Processing: Inked, serially sectioned and entirely submitted in 2 cassettes as follows: ?A1: ??Tips ?A2: ??Body ??sdy [facility] 07/17/2023 11:3 5 AM EDT Nilda Luis MD PATHOLOGY/CYTOLOGY ORDERABLES Performing Organization Address [facility] Co de Phone Number [facility] [place] [address] * HPV (11/10/2022 11:30 AM EDT) HPV 16 NEGATIVE NEGATIVE [facility] HPV 18 NEGATIVE NEGATIVE [facility] HPV Other HR NEGATIVE NEGATIVE [facility] HPV Interpretation See Comment [facility] Comment: NEGATIVE for high-risk HPV *. ?? *Testing negative for high risk HPV means that high risk HPV DNA is not detected in the specimen for the following 14 types tested: types 16, 18, 31, 33, 35, 39, 45, 51, 52, 56, 58, 59, 66, and 68. The test is not intended to detect low risk HPV types. ?? Method: Josesito noel HPV test (FDA-approved for clinical use) Specimen: HPV Testing ? Cytology Liquid Based Prep This test is validated for cervical specimens only for use in cervical cancer screening. ??Other uses or specimen types are not validated/recommended. Cervical 11/10/2022 11:3 0 AM EDT 11/10/2022 3:29 PM EDT Narrative Resulting Agency Comment Spec In Lab Abby Phoenix CNM PATHOLOGY/CYTOLO GY ORDERABLES Performing Organization Address [facility] Co de Phone Number [facility] [place] [address] * Service Line Coordinator Cytology Final Report (11/10/2022 11:30 AM EDT) Service Line Coordinator Cytology Final Report [id number] ? Location: 5L The signing pathologist has (i) examined the relevant preparation(s) for the specimen(s) and (ii) rendered or confirmed the diagnosis(es). . ? Service Line Coordinator Final DIAGNOSIS Normal Negative for intraepithelial lesion or malignancy (NILM). For consensus guidelines for the management of cervical cancer screening test results, please see: ?? http://www.asccp.o rg . Electronically signed by: ?Bk CARL(ASCP), Jillian Lanier Verified: ??11/27/2022 12:15 ??School Speech Therapist Performed at: ??-[facility] Dept. of Pathology, [place] [address] Gaming Cage Worker: Yoselni Pimentel MD, AP, ??IA Certificate: [id number] DISCUSSION Shift in faheem suggestive of bacterial vaginosis. HPV RESULTS HPV16 (Result) ?Negative HPV18 (Result) ?Negative HPVOHR (Result) ? Negative HPV (Interpretation) ?See Below HPV (Interpretation) Text: NEGATIVE for high-risk HPV *. *Testing negative for high risk HPV means that high risk HPV DNA is not detected in the specimen for the following 14 types tested: types 16, 18, 31, 33, 35, 39, 45, 51, 52, 56, 58, 59, 66, and 68. The test is not intended to detect low risk HPV types. Method: Josesito noel HPV test (FDA-approved for clinical use) Specimen: HPV Testing ?? - Cytology Liquid Based Prep This test is validated for cervical specimens only for use in cervical cancer screening. ??Other uses or specimen types are not validated/rec ommended. The Josesito noel ? HPV test was validated, performed and results reported through the [facility] ([facility]) at [facility]. ? - Dave Arizmendi, PhD, [facility], Director-[facility] STATEMENT OF ADEQUACY Specimen submitted is satisfactory. Endocervical component present. CLINICAL INFORMATION HPV Option: ?Concurrent HPV and Pap CT/NG Option: ?No Preparation: ? Liquid based Pap Specimen Source: ? Cervical/Endocervi kee LMP: ? postmenopause Hysterectomy: ?No : ?No : ?No I.U.D.: ?No Pelvic Radiation: ?No Hist Abnl Pap/Biopsy: ?Yes, history of previous abnormal Pap Prior SKIN LAP BONDER Therapy: ? No . CLINICAL INFORMATION Hist of HPV Vaccine: ? No ICD Diagnosis: ? Z12.4 Encounter for screening for malignant neoplasm of cervix Clinical Data, Significant Therapy and Clinical Impression ?? : ?_ This Pap Test has been evaluated with the assistance of the [employer] Pap Test Imaging System. Note: The Pap test is a screening test for cervical cancer with an inherent false-negative rate dependent upon several variables. For further information please contact the [facility]. Reference: Kalyan RODRIGUEZ. Crystallographer of Pap Smear Results. In: Shaggy BS, Laci ABBASI, ed. The Pap Smear. [place]: Adebayo, 2002: 71-77. [facility] 11/10/2022 11:3 0 AM EDT Abby Phoenix CNM PATHOLOGY/CYTOLO GY ORDERABLES [facility] [place] [address] * Hepatitis C Antibody (07/24/2018 4:14 PM EDT) Hepatitis C Ab Negative Negative [facility] Blood specimen (specimen) 07/24/2018 4:14 PM EDT 07/24/2018 6:02 PM EDT Narrative Resulting Agency Comment Spec In Lab Ernestine Gaines MD IMMUNOLOGY ORDERABLE S [facility] [place] [address] * Mammo Screen CAD and Bob Bilat (Generic) (03/12/2017 1:38 PM EST) Anatomical Region Laterality Modality Breast Bilateral Mammography Impressions 03/13/2017 9:48 AM EST BIRADS CATEGORY 0: Additional imaging required. Diagnostic imaging of the left breast. Narrative 03/13/2017 9:48 AM EST REASON FOR EXAM: Screening TECHNIQUE: CC and MLO views were obtained of the bilateral breasts. Computer aided detection was used. 3D tomosynthesis images were obtained in addition to 2D images. FINDINGS: Breast density: The breasts are heterogeneously dense, which may obscure small masses. Right breast. ??There are no suspicious microcalcifications, masses, or areas of distortion. No changes compared to prior studies. The Left breast is abnormal and additional imaging is required. There is a mass/focal asymmetry of the upper outer left breast, approximately 2:00, 8 to 9 cm from the nipple. Trinh Coates MD IMG MAMMO ORDERABLES from Last 3 Months or Most Recently Relevant to Health Maintenance Advance Directives * Attempt Cardiopulmonary Resuscitation - Inpatient (Latest Code Status on File) Date Activated Date Inactivated Comments 05/24/2023 3:36 PM 05/25/2023 4:33 AM Question Answer Comments Code Status decision made by: Patient * Attempt Cardiopulmonary Resuscitation - Inpatient Date Activated Date Inactivated Comments 05/24/2023 3:36 PM 05/24/2023 3:36 PM Question Answer Comments Code Status decision made by: Patient * Attempt Cardiopulmonary Resuscitation - Inpatient Date Activated Date Inactivated Comments 01/31/2023 1:11 PM 01/31/2023 10:15 PM Question Answer Comments Code Status decision made by: Patient * Attempt Cardiopulmonary Resuscitation - Inpatient Date Activated Date Inactivated Comments 01/24/2023 2:23 PM 01/31/2023 4:41 AM Question Answer Comments Code Status decision made by: Patient * Attempt Cardiopulmonary Resuscitation - Inpatient Date Activated Date Inactivated Comments 07/24/2022 1:45 PM 07/25/2022 6:40 PM Question Answer Comments Code Status decision made by: Patient Care Teams Swabber Relationship Specialty Start Date End Date Trinh Coates MD [facility] [address] [place] [address] PCP - General 01/11/10
--- OUTSIDE RECORDS SUMMARY | 2023-09-07 11:23 | XMS_ITS | Encounter Summary ---
Author Organization [facility] Address [facility] [place] [address] Care Team Providers Care Rehabilitation Tech Name Role Phone Trinh Coates MD Primary Care Provider [phone] Reason for Visit * Reason Comments Skin Cancer Examination Encounter Details Date Type Department Care Team (Late st Contact Info) Description 07/17/2023 11:00 AM EDT Office Visit Dermatology at [facility] [address] [place] [address] Jay Luis MD [facility] [address] Psoriasis; High risk medication use; Neoplasm of unspecified behavior of bone, soft tissue, and skin; Actinic keratoses; Seborrheic keratoses; Lentigo; History of atypical nevus; Sebaceous hyperplasia; Milia Social History Tobacco Use Types Packs/Day Years [...] on file documented as of this encounter Patient Instructions * Patient Instructions* Samantha Sanchez RN - 07/17/2023 11:00 AM EDT Shave Biopsy Wound Care Instructions Your treatment today: You have had a shave biopsy of your skin, which is a removal of tissue for examination under a microscope. This wound will heal without stitches. Allow 3-6 weeks for the wound to heal fully. If bleeding should occur, hold firm, constant pressure against the wound for 15- 20 minutes (with nopeeking). If bleeding continues, call the clinic or go to your local emergency department. Please allow 1-2 weeks for the biopsy results to return. In accordance with the Century Cures Act Final Rule, the pathology results will be released to [facility] patient portal at the same timethey are available to the physician to review. Your physician or nurse will contact you within 3 business days of receiving the results; follow-up will be discussed at that time. If in 2 weeks, you have not heard from us, please feel free to call the clinic to discuss your biopsy results. Wound care instructions: Keep the bandage placed over the wound dry and intact for 24 hours. Afterwards, perform the following wound care daily: Wash your hands. Remove the bandage, clean the area with soap and water, and gently pat dry. Apply a small amount of Vaseline and cover with a Band-Aid. Repeat daily until the wound is healed fully. A small amount of yellow drainage is part of the normal healing process. The area might appear as asmall depression with redness around the edge of the wound; this is normal. Please contact the clinic if you notice any of the following signs of infection: increased pain, tenderness, drainage, or redness that becomes hot or hard around the wound. Contact information: For non-urgent questions, please call the clinic at [phone] (weekdays, 8 am to 5 pm). After 5 pm, and on weekends and holidays, for urgent concerns that cannot wait until the next business day, please call the hospital at [phone] and ask for the [employer] Slide Machine Operator On-Call. documented in this encounter Progress Notes * Jay Luis MD - 07/17/2023 11:00 AM EDT Images from the original note were not included. DEPARTMENT OF DERMATOLOGY Medical Dermatology Clinic Provider: JAY LUIS MD Patient's preferred name Wendy Preferred contact method for results [x]Phone []myD-H []Letter Detailed phone message OK? Yes Are there any other people with whom we may discuss your care? (Phillip) Past Medical History Date, location, treatment Melanoma No Dysplastic nevi 09/08/13: Left neck, atypical lentiginous junctional melanocytic proliferation (s/pexcision 10/10/13) SCC No BCC No AKs Yes: LN2 UV Exposure & Protection Other relevant past medical history + Psoriasis (since age 16), started Stelara 09/12/18; previous treatments: triamcinolone ointment, calcipotriene, clobetasol cream, MG217 + Sebaceous hyperplasia + H/O estrogen+ breast cancer + H/O hyperparathyroidism Family History Details Melanoma No NMSC No Other relevant family history Mother - psoriasis Social History Occupation: Works at [employer] Pre-Procedure Questions Details Allergy to lidocaine, epinephrine, Dermabond, chlorhexidine, or adhesives No Bleeding disorder or blood thinners No Pacemaker, defibrillator, deep brain stimulator, cochlear implant No History of Present Illness: Wendy Sandoval is a 58 y.o. Patient returns to the clinic today for a skin cancer screening and psoriasis follow up. Concerns today include: - ? New and/or ? changing brown lesion on the left cheek. She doesn't recall this being as noticeable. - White bumps on the right lower eyelid. Not bothersome but wants to discuss options for removal. - Brown lesion on the left medial calf that has become darker. - Discuss treatment options for bump on the right upper cutaneous lip; she opted not to treat with Efudex. - Says psoriasis continues to do well on Stelara. Denies injection site reactions. No recent illnesses or infections. Not treated with topical steroids. Last visit at Dermatology: 09/26/2022 Last FSE: 2022 Medications: Reviewed in eD-H Allergies: Reviewed in eD-H Skin Examination: Full skin examination: Patient asked to undress to their comfort level. Verbalized that the provider's preference is that patient remove all clothing and that the provider will not examine areas patient elects to keep covered. Examination of the scalp, hair, head, face, ears, neck, chest, axillae, abdomen, back, buttocks, and upper and lower extremities was normal with the exception of the findings below. Genitalia not examined. Assessment/Plan A. Pigmented SK R/O Atypical Melanocytic Lesion - 1.5 x 0.6 cm ill-defined, brown patch with focal hyperpigmentation and comedonal-like cysts on dermoscopy on the left medial lower leg (Figures 1-2, specimen A). - Recommended a skin biopsy to confirm/clarify the nature of the skin lesion. After discussing potential risks (e.g., bleeding, pain, infection, pigment change, scarring, recurrence), patient agreed to proceed. - Patient denies known allergies to lidocaine and epinephrine. Procedure: Skin shave biopsy. Location: Left medial lower leg Time of procedure: 11:35 am Indications and expectations, including risks and benefits, discussed. Verbal consent obtained. Skin prepped with alcohol. Local anesthesia administered with 1% xylocaine, 1:100,000 epinephrine. Sample of lesion removed by shave technique to level of dermis and submitted to Pathology. Hemostasis obtained (AlCl3). There were no complications; patient tolerated procedure well. Wound dressed. Post-procedure expectations, wound care, and activity restrictions reviewed. Follow-up based on pathology results. B. Actinic Keratosis - Ill-defined, gritty papule on the right upper vermilion lip border x1. - Explained premalignant potential of these lesions. - Recommended treatment with cryotherapy; after reviewing post-procedure expectations (e.g., scabbing, blistering) and wound care, patient elected to proceed. - Instructed patient to return to clinic for re-evaluation if lesion does not resolve with this treatment. Procedure: Destruction of pre-malignant lesion with cryotherapy (LN2). Location: As noted above. Number: 1 Indication and expectations, including risks (especially hypopigmentation) and benefits, discussed.Possibility of recurrence and need for additional treatment reviewed. Verbal consent obtained. Frozen with LN2, 15-30 second thaw time, twice. There were no complications; patient tolerated procedurewell. Post- procedure expectations and wound care reviewed. C. Lentigo vs Macular Seborrheic Keratosis - 0.4 cm thin, brown papule on the left cheek (Figure 3). - Measured and photographed today. - Will continue to monitor. D. Seborrheic Keratoses - [place]-brown papules/plaques with waxy, stuck-on appearance scattered on the head, trunk, and extremities. - Explained that these are hereditary and adult-acquired. Reassured patient of benign nature. No treatment necessary. E. Milia - Firm, round, white subcutaneous papules on the right lower eyelid. - Discussed benign nature and provided reassurance. No treatment necessary. - Noted option of cosmetic removal with our cosmetic provider or metalsmith apprentice; patient not interested in pursuing at this time. F. Sebaceous Hyperplasia - Yellowish papules with central umbilication on the face. - Reviewed diagnosis and etiology (benign growths of sebaceous glands and hair follicle unit). - Provided reassurance. No treatment necessary at this time. - Noted option of cosmetic treatment with our cosmetic provider; patient not interested in pursuingat this time. G. Psoriasis - No active disease on exam today. - Well-controlled on Stelara. - Refill and continue Rx Stelara 45 mg/0.5 mL: Inject the contents of 1 syringe subcutaneously every 12 weeks. - Labs today: CBC, CMP, Q-TB Gold H. History of Atypical Lentiginous Junctional Melanocytic Proliferation - Well- healed scar on the left neck as per skin history. - No evidence of recurrence; will continue to monitor. Figure 1 Figure 2 Figure 3 Photo(s) taken and charted with patient's verbal consent. Other: Sun protection discussed (protective clothing and SPF30+ broad-spectrum sunscreen) RTC: Based on pathology results; otherwise in 6 months for SCS []Note routed to police department secretary []Recall placed in scheduling system [x]Appointment scheduled at checkout Scribe attestation: Samantha Sanchez RN has performed the documentation for this encounter in the presence of and acting as a scribe for JAY ULIS MD. I performed the above scribed service and agree with the accuracy of the documentation in this encounter. Reviewed and signed by: JAY LUIS MD Dermatology [facility] * Jay Luis MD - 07/17/2023 11:00 AM EDT Hi Wendy, Your recent biopsy showed a benign keratosis. Good news. No further treatment is neededat this time. I hope you are healing well. Please let me know if you have any questions or concerns. -Jay Luis documented in this encounter Plan of Treatment Upcoming Encounters Date Type Department Care Team (Late st Contact Info) Description 01/22/2024 10:30 AM EST Appointment Mammography/[place] [id number] Ladi Mendosa MD [facility] HEMATOLOGY/[place] [address] 01/30/2024 11:30 AM EST Office Visit Dermatology at [address] [address] Jay Luis MD [facility] [address] [place] [address] 02/15/2024 9:30 AM EST [place] [address] [place] [address] documented as of this encounter Procedures Procedure Name Priority Date/Time Associated Diagnosis Comments SPECIMEN TO PATHOLOGY Routine 07/17/2023 12:46 PM EDT Neoplasm of unspecified behavior of bone, soft tissue, and skin SURGICAL PATHOLOGY REPORT Routine 07/17/2023 11:35 AM EDT documented in this encounter Results * Specimen to Pathology (07/17/2023 12:46 PM EDT) AP Specimen 07/17/2023 12:4 6 PM EDT 07/17/2023 12:46 PM EDT Narrative [facility] - 07/17/2023 12:46 PM EDT Specimen requisition ordered. ??Separate Pathology report to follow Jay Luis MD PATHOLOGY/CYTOLOGY ORDERABLES Performing Organization Address City/[facility]/ZIP Co de Phone Number [facility] [place] [address] * QuantiFERON-TB Gold (07/17/2023 12:07 PM EDT) QFT Nil 0.029 IU/mL [facility] QFT TB Ag1-Nil -0.003 IU/mL [facility] QFT TB Ag2-Nil 0.006 IU/mL [facility] QFT Mitogen-Nil 9.971 IU/mL [facility] Quantiferon TB Negative Negative [facility] Quantiferon TB Interp M. tuberculosis infection [...] affect immune function, or other immunological factors. [facility] Blood 07/17/2023 12:0 7 PM EDT 07/18/2023 11:35 AM EDT Narrative Resulting Agency Comment Spec In Lab Jay Luis MD CHEMISTRY ORDERABLE S Performing Organization Address [facility]/ZIP Co de Phone Number [facility] [place] [address] * (ABNORMAL) Comprehensive metabolic panel (non-fasting) (07/17/2023 12:07 PM EDT) Glucose Lvl 91 65 - 199 mg/dL [facility] Comment:Diabetes: >=200 mg/d L plus symptoms BUN 34(H) 8 - 18 mg/dL [facility] Creatinine 1.82(H) 0.70 - 1.20 mg/dL [facility] Sodium 143 135 - 145 mmol/L [facility] Potassium 4.7 3.5 - 5.0 mmol/L [facility] Comment: Please note: ??Patients with WBC >100,000 may have falsely elevated Potassium levels. ??For accurate Potassium quantification in these patients send serum separator tube (gold top) for subsequent determinations. ??Contact the Clinical Chemistry Laboratory if there are any questions. Chloride 107 98 - 107 mmol/L [facility] CO2 22 22 - 31 mmol/L [facility] Anion Gap 14 5 - 15 mmol/L [facility] Calcium 9.5 8.5 - 10.5 mg/dL [facility] Total Protein 7.1 6.1 - 8.0 g/dL [facility] Albumin 4.5 3.2 - 5.2 g/dL [facility] AST 15 0 - 30 unit/L [facility] ALT 16 0 - 30 unit/L [facility] Alk Phos 111(H) 35 - 105 unit/L [facility] Total Bilirubin 0.5 0.2 - 1.3 mg/dL [facility] Estimated GFR 31(L) >=60 mL/min/1. 73 m?? [facility] Comment: This patient's estimated [...] Narrative Resulting Agency Comment Spec In Lab Jay Luis MD CHEMISTRY ORDERABLE S [facility] [place] [address] * Surgical Pathology Report (07/17/2023 11:35 AM EDT) Surgical Pathology Report [id number] ? Location: [facility] The signing pathologist has (i) examined the relevant preparation(s) for the specimen(s) and (ii) rendered or confirmed the diagnosis(es). . ?Surgical Pathology DIAGNOSIS L eft medial lower leg, skin shave biopsy: - Pigmented macular ??seborrheic keratosis Electronically signed by: ?Oscar RENEE, PhD, Pk Lanier Verified: ??07/24/2023 8:42 ?? Dermatopathologist, Bone & Soft Tissue Pathologist Performed at: ??-[facility] Dept. of Pathology, [place] [address] Blue Line Hanger: Yoselin Pimentel MD, FCAP, ??CLIA Certificate: [id number] SPECIMEN(S) SUBMITTED A - left medial lower [...] as follows: ?A1: ??Tips ?A2: ??Body ??sdy [facility] 07/17/2023 11:3 5 AM EDT Jay Luis MD PATHOLOGY/CYTOLOGY ORDERABLES [facility] [place] [address] documented in this encounter Visit Diagnoses Diagnosis Psoriasis Other psoriasis High risk medication use Encounter for long-term (current) use of other medications Neoplasm of unspecified behavior of bone, soft tissue, and skin Actinic keratoses Actinic keratosis Seborrheic keratoses Lentigo Other dyschromia History of atypical nevus Personal history of diseases of skin and subcutaneous tissue Sebaceous hyperplasia Other specified disease of sebaceous glands Milia Sebaceous cyst documented in this encounter Care Teams Rehabilitation Tech Relationship Specialty Start Date End Date Tirnh Coates MD [facility] [address] [place] [address] PCP - General 01/11/10 documented as of this encounter
--- OUTSIDE RECORDS SUMMARY | 2023-09-07 11:23 | XMS_ITS | Encounter Summary ---
Author Organization [facility] [place] [address] Care Team Providers Care Maintenance Plumber Name Role Phone Trinh Coates MD Primary Care Provider [phone] Reason for Referral * Diagnostic Test (Routine) - Closed Specialty Diagnoses / Procedures Referred By Contac t Referred To Contact Radiology Diagnoses Abdominal pain, unspecified abdominal location Procedures CT Guided Aspiration Muscle Soft Tissue Juan Kat PA [facility] [place] [address] [facility] [place] [address] Referral ID Status Reason Start Date Expiration Date V isits Requested Visits Authorized [id number] Closed Specialty Service Requested 05/22/2023 11/20/2024 1 1 Reason for Visit * Diagnostic Test (Routine) - Closed Specialty Diagnoses / Procedures Referred By Contac t Referred To Contact Radiology Diagnoses Abdominal pain, unspecified abdominal location Procedures CT Guided Aspiration Muscle Soft Tissue Juan Kat [place] [facility] [place] [address] [facility] [place] [address] Referral ID Status Reason Start Date Expiration Date V isits Requested Visits Authorized [id number] Closed Specialty Service Requested 05/22/2023 11/20/2024 1 1 Encounter Details Date Type Department Care Team (Latest Contact Info) Description 05/24/2023 2:50 PM EDT - 05/24/2023 11:59 PM EDT Hospital [place] [address] Andre Crowley MD [facility] [place] [address] Abdominal pain, unspecified abdominal location Discharge Disposition: Home Social History Tobacco Use Types Packs/Day Years [...] Sign Reading Time Taken Comments Blood Pressure 153/139 05/24/2023 5:45 PM EDT Pulse 70 05/24/2023 5:25 PM EDT Temperature 36.6 ??C (97.8 ??F) 05/24/2023 5:40 PM ED T Respiratory Rate 18 05/24/2023 5:45 PM EDT Oxygen Saturation 93% 05/24/2023 5:45 PM EDT Inhaled Oxygen Concentration - - Weight - - Height - - Body Mass Index - - documented in this encounter Discharge Instructions * Discharge Instructions* Arabella Ford RN - 05/24/2023 5:34 PM EDT Discharge Instructions For Your Puncture Site Activity and Diet: Go Home and rest quietly for the remainder of the day. You may resume your normal activities tomorrow. Resume your usual diet after the procedure. Bandage: There is a sterile dressing over the puncture site consisting of small gauze with a clear dressing (Tegaderm). This dressing should be left in place for 24 hours. If the clear dressing becomes loose you should place tape over the edges to secure it in place. Bathing: Do not take a shower until 24 hours after your procedure; after this time you may shower with the dressing in place, then remove it and pat your skin dry. You may use a bandaid to cover the site if there is any drainage. When to call your healthcare provider: If you notice bleeding or a bulge from the puncture site, you should apply firm pressure over the site for 10-15 minutes, keeping the site covered and call your doctor. If you are still bleeding after 10-15 minutes, reapply pressure, and have someone drive you to the nearest Emergency Department, or call 911. If you develop pain, redness, drainage or swelling at or around the puncture site. If you develop fever equal to or greater than 101F and/or shaking chills. When to call the Interventional Radiology Department: Please call with any questions or concerns. If it is during regular office hours, please call [phone]. If it is after regular office hours, or on weekends or holidays, please call [phone] and ask to speak to the Keypunch Operator buttermaker continuous churn for Interventional Radiology. You have received medication during your procedure to help lessen anxiety and keep you comfortable.These medications affect judgement and reaction time. We recommend that you do not drive, operate equipment, sign any important documents, or smoke unattended for 24 hours following your procedure. Because of the sedation, be careful on stairs, as you may be unsteady on your feet. You may resume your regular diet as tolerated. IV site -- slight redness, or tenderness is normal, you can use a warm compress. If tenderness and redness increases or foul drainage occurs, please contact your M. D. Revised 03/05/15 documented in this encounter Medications at Time of Discharge Medication Sig Dispensed Refills Start Date End Date losartan (COZAAR) 100 mg Tablet take 1 tablet by mouth once daily 0 10/09/2017 cholecalciferol, Vitamin D3, 125 mcg (5,000 unit) Tablet Take by mouth daily. ferrous gluconate 324 mg (37.5 mg iron) TabletIndications:Prote inuria,Essential hypertension,Hypercalce osmin Take 324 mg by mouth daily. fluoxetine (PROZAC) 40 mg capsule Take 40 mg by mouth daily. 10/31/2012 ibuprofen (Motrin) 400 mg tablet Take 1 tab q 6 hrs daily as needed 11/15/2015 valACYclovir (Valtrex) 500 mg tablet TAKE ONE TABLET BY MOUTH TWICE A DAY FOR 3 DAYS exemestane (Aromasin) 25 mg tabletIndications:Malig nant neoplasm of upper-outer quadrant of left breast in female, estrogen receptor positive Take 1 tablet by mouth daily. 90 tablet 3 01/08/2023 clobetasoL (Temovate) 0.05 % OintmentIndications:Irr itation of vulva Apply to vulva scant amount twice a day for 2 weeks and then nightly 30 g 11/10/2022 fluconazole (Diflucan) 150 mg tabletIndications:Dysur ia Take 1 tablet by mouth every 3 days. 2 tablet 11/10/2022 acetaminophen (Tylenol) 500 mg tablet Take 1,000 mg by mouth every 6 hours as needed for Pain. fluorouraciL (EFUDEX) 5 % CreamIndications:Actini c cheilitis Apply a thin layer to affected areas on the right upper lip twice daily (morning and night) as tolerated for 2 weeks. CAUTION: THIS MEDICATION IS TOXIC TO PETS. 40 g 09/26/2022 aspirin 81 mg chewable tablet Take 81 mg by mouth daily. 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 rosuvastatin (Crestor) 10 mg Tablet TAKE 1 TABLET BY MOUTH DAILY AT BEDTIME 04/26/2020 dilTIAZem (CARDIZEM CD) 240 mg Capsule, Sust. Release 24 hr Take 240 mg by mouth daily. spironolactone (ALDACTONE) 25 mg Tablet Take 1 tablet by mouth daily. 90 tablet 3 07/23/2018 Stelara 45 mg/0.5 mL subcutaneous injectionIndications:Ps oriasis MAINTENANCE: INJECT 1 SYRINGE SUBCUTANEOUSLY EVERY 12 WEEKS. REFRIGERATE. DO NOT FREEZE 0.5 mL 2 01/30/2023 07/17/2023 documented as of this encounter Progress Notes * Arabella Ford, RN - 05/24/2023 4:54 PM EDT [facility] NURSING DATABASE Name: Wendy Sandoval Date of : 1965 AGE: 57 y.o. Address: [address] [place] [id number] (home) [phone] (work) Mobile: Telephone Information: Referring Provider: Juan Kat REASON FOR VISIT: Order Questions Answers Where will study be performed? [facility] [place] Radiology [120] Is the patient on anticoagulant / antiplatelet therapy ? No Does the patient have any pertinent outside imaging? No Reason for exam and clinical history: Enhancing right psoas lesion on MRI Clinical information / arteaga questions for radiologist: Abdominal pain Stat read required? No Does patient require sedation? IV Planned procedure: Right psoas collection aspiration Labs to be performed day of procedure: No labs Sedation: Moderate (Conscious sedation) Prophylactic antibiotic : None Contrast: No contrast Additional medications for procedure: Lidocaine Position: Prone; Left Decub Consent: Pending Medications to discontinue (and days held): None Case Urgency:: F- Elective OUT-patient intervention within 3 days Allergies Allergen Reactions Penicillins Thrush PAT Penicillin Allergy Risk Assessment 07/20/2022: Moderate Risk Reaction. Patient referred to allergy clinic for pre-op testing. Other Reaction(s): Thrush Sertraline PSORIASIS FLARE Other Reaction(s): Skin Rash Pertinent PMH: Patient Active Problem List Diagnosis Code Hypertension I10 Depression F32.A Obstructive sleep apnea (adult) (pediatric) G47.33 OA (osteoarthritis) M19.90 Overweight(278.02) E66.3 Hyperparathyroidism E21.3 Malignant neoplasm of upper-outer quadrant of left breast in female, estrogen receptor positive C50.412, Z17.0 S/P breast reconstruction, bilateral Z98.890 Surgery follow-up Z09 Abdominal wound dehiscence T81.30XA Hypokalemia E87.6 Bacterial conjunctivitis H10.9 Seroma of breast N64.89 History of breast cancer Z85.3 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 Headache R51.9 Abnormal auditory perception H93.299 Abnormal imaging of central nervous system R90.89 Acute bronchospasm J98.01 Acute cystitis N30.00 Acute lateral meniscal injury of left knee S83.8X2A Acute stress disorder F43.0 Acute upper respiratory infection J06.9 Adjustment reaction F43.20 Arthritis of right acromioclavicular joint M19.011 Attention deficit disorder (ADD) F98.8 Benign paroxysmal positional vertigo H81.10 Biceps tendinitis of right shoulder M75.21 Intracranial aneurysm I67.1 Bursitis of shoulder M75.50 Calculus of kidney N20.0 Candidiasis of vagina B37.31 Chronic kidney disease N18.9 Dysphagia R13.10 Dyspnea R06.00 Dysuria R30.0 Edema of lower extremity R60.0 Exophthalmos H05.20 External hemorrhoids K64.4 Family history of neurological disorder Z82.0 Fatigue R53.83 Fibrocystic breast disease N60.19 Foot pain M79.673 Gastritis K29.70 Hematuria R31.9 Herpes, genital A60.00 Herpesvirus infection B00.9 History of ankle surgery Z98.890 Hx of knee surgery Z98.890 History of hypothyroidism Z86.39 History of urinary stone Z87.442 Hx of bilateral mastectomy Z90.13 Hyperaldosteronism E26.9 Hypercalcemia E83.52 Hyperglycemia R73.9 Hyperlipidemia E78.5 Hypomagnesemia E83.42 Hypothyroidism E03.9 Impaired fasting glucose R73.01 Increased frequency of urination R35.0 Ingrowing nail L60.0 Irregular bleeding N92.6 Left ureteral stone N20.1 Leukocytosis D72.829 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 Low back pain M54.50 Pain in thoracic spine M54.6 Lump on face R22.0 Lymphedema I89.0 Malignant neoplasm of breast C50.919 Neuralgia of left sciatic nerve M54.32 Noninflammatory disorder of vulva or perineum N90.9 Obesity E66.9 Onychomycosis due to dermatophyte B35.1 Osteopenia M85.80 Overweight E66.3 Pain in finger M79.646 Pain in joint of right shoulder M25.511 Paresthesia R20.2 Disorder of skin or subcutaneous tissue L98.9 Pain in left arm M79.602 Personal history of other endocrine, nutritional and metabolic disease Z86.39 Prediabetes R73.03 Proteinuria R80.9 Psoriasis L40.9 Renal function test abnormal R94.4 Right lateral epicondylitis M77.11 Right rotator cuff tendonitis M75.81 Rotator cuff tear, right M75.101 Sciatica M54.30 Screening for colon cancer Z12.11 Sessile colonic polyp K63.5 Stage 3b chronic kidney disease N18.32 Syncope and collapse R55 Tinnitus H93.19 Trigger ring finger of right hand M65.341 Tubular adenoma of colon D12.6 Ulceration of vulva N76.6 Vulvar rash R21 Date/Procedure Meds Given/Comments 04/30/17 Rt breast drain exchange and repositioning, 10Fr. Versed 2mg IV, Fentanyl 100mcg IV. Tolerated well. 05/11/2017 Left axillary aspiration/ 45 ml Clear yellow Versed 3 mg IV, Fentanyl 150 mcg IV 05/14/2017 Left Axillary Drain placement Fentanyl 100 mcg IV; Pt tolerated procedure well. 05/25/17 Bilat. Sinogram of axillary/breast drain, removed of left side drain Local only with Lido gel. 06/06/17 sinograms b/l breast drains. Mediport procedure cancelled d/t concern of L breast infection. R drain removed. Fentanyl 50 mcg IV [id number] Left breast aspiration/ 30 ml Fentanyl 100 mg IV 07/03/[address] power-injectable port placement Clindamycin 900 mg IV, versed 3 mg IV, fentanyl 150 mcg IV 09/06/17: Left breast drain placement, 320 cc output, sent for culture Fentanyl 150 mcg, tolerated well 11/20/17 Sinogram L. Breast drain No meds/ no intervention 01/25/2018 Mediport removal Fentanyl 150 mcg IV Versed 2 mg IV 07/12/18 Adrenal Vein Sampling Cortrosyn at 50 mcg/ hour for total of 250cc, versed 4 mg IV and fentanyl 200 mcg 05.19.22 Cerebral Arteriogram - diagnostic Fentanyl 125 mcg, IV. Midazolam 1.5 mg, IV. Radial cocktail: heparin 3000 units, verapamil 2.5 mg, nitroglycerin 200 mcg, IV. 07/24/22 Cerebral Embolization ANES 01/31/23 Cerebral Angiogram Fentanyl 175 mcg IV, Versed 2 mg IV 05/24/23 CT Guided Aspiration muscle soft tissue Right Psoas Fentanyl mcg/IV, Versed mg/IV. 05/24/2023 Right Psoas lesion aspiration Fentanyl 125 mcg, Versed 2.5 mg 16:[address] 5 via stretcher. Onto table prone. All monitors, O2, safety strap in place. Meds per protocol. Laboratory Results: Lab Results Component Value Date INR 1.1 11/30/2017 Lab Results Component Value Date CREATININE 1.89 (H) 05/15/2023 Lab Results Component Value Date K 4.7 05/15/2023 Lab Results Component Value Date PLATELET 332 02/01/2023 documented in this encounter H&P Notes * Isidoro Cao DO - 05/24/2023 3:25 PM EDT Interventional Radiology Interval H&P: Procedure: CT guided aspiration of soft tissue The patient's history and physical exam have been reviewed and completed. There has been no interval change from that of the pre-operative history and physical exam done within the last 30 days. Physical Exam: Cardiovascular: Regular, Normal Pulmonary: Breath sounds clear to auscultation Abdomen: soft, NT/ND Vascular: WWP The planned procedure (and sedation plan if appropriate), its benefits and risks, and alternatives were discussed with the patient. The patient consented to the procedure. The indications for the procedure are still present. Pre-sedation Assessment: Sedation Plan: moderate (conscious sedation) ASA: 3: Patient with severe systemic disease Mallampati: III: only the base of the uvula can be seen Confirm NPO status: Yes History of anesthetic complications: No Current medications reviewed: Yes Allergies reviewed: Yes documented in this encounter Plan of Treatment Upcoming Encounters Date Type Department Care Team (Late st Contact Info) Description 01/22/2024 10:30 AM EST Appointment Mammography/[place] [address] Ladi Mendosa MD [facility] HEMATOLOGY/[place] [address] 01/30/2024 11:30 AM EST Office Visit Dermatology at [facility] [address] [place] [address] Nilda Luis MD [facility] [address] [address] 02/15/2024 9:30 AM EST Appointment [place] [id number] [place] [address] documented as of this encounter Procedures Procedure Name Priority Date/Time Associated Diagnosis Comments CT GUIDED ASPIRATION MUSCLE Routine 05/24/2023 5:41 PM EDT Abdominal pain, unspecified abdominal location ANAEROBIC CULTURE Routine 05/24/2023 5:3 0 PM EDT HC GRAM STAIN FOR BACTERIA Routine 05/24/2023 5:30 PM EDT BODY FLUID CULTURE, AEROBIC Routine 05/24/2023 5:30 PM EDT ANAEROBIC CULTURE Routine 05/24/2023 5:2 0 PM EDT HC GRAM STAIN FOR BACTERIA Routine 05/24/2023 5:20 PM EDT BODY FLUID CULTURE, AEROBIC Routine 05/24/2023 5:20 PM EDT documented in this encounter Results * CT Guided Aspiration Muscle Soft Tissue (05/24/2023 5:41 PM EDT) Anatomical Region Laterality Modality Computed Tomogra phy Narrative 05/25/2023 8:04 AM EDT INTERVENTIONAL RADIOLOGY PROCEDURE NOTE Procedure: Aspiration of left facet at L5 and right psoas at L4 Indication for Procedure: Enhancing right psoas on MRI Informed Consent: After discussing risks (including infection, trauma / damage to surrounding structures, hemorrhage, non-success, amongst others), and benefits of the procedure, the patient consented to the procedure. Anesthesia: 1. Conscious sedation with titrated Fentanyl and Versed during continuous hemodynamic monitoring including pulse oximetry, heart rate and blood pressure was provided by an independent qualified trained Nurse. ?? I was present during the intraservice time as documented by the IR Nurse. ?? Please see nursing notes for exact medication dosages. 2. 1% lidocaine, local. Procedure Events and Technique: A standard time-out was conducted just before the start of the procedure to verify all arteaga aspects; including the correct patient and planned procedure, procedure location, informed consent, and all relevant critical information, all of which were correct. The patient was positioned prone on the procedure table. The target sites were localized using CT guidance. The site was cleaned and prepped in typical sterile fashion; maximum sterile barrier technique was used throughout. ?? Local anesthetic was administered to the skin and deep soft tissues. An 18g chiba needle was advanced into the site under CT guidance. Aspiration was attempted once the appropriate location was confirmed on CT. 2ccs of sterile saline was used to wash the area of concern and aspirated. Once both sites were sampled, the needles were removed and a final confirmatory CT was performed. Medications: Fentanyl 125 mcg IV Versed 2.5 mg IV 1% Lidocaine <10ccs subcutaneous Contrast: none Estimated Blood Loss: 5 cc. Complications: ??No immediate. Findings: No al fluid collections at the left L5 facet or right psoas muscle at L4 Return of lite serosanguinous fluid after sterile saline wash. Sent for culture. No immediate post-procedure hematoma. Impression: 1) No al pus at the area of concern 2) No immediate post-procedure complications. Plan: - Follow up on body fluid cultures. - Patient may return to original facility for further care when meets criteria. Resident/Fellow: Isidoro Cao DO Attending: Dr. Adorno I was the attending physician supervising the resident in the above care and I was present with the resident for the entire procedure. Andre Crowley MD G CT ORDERABLES * Anaerobic Culture (05/24/2023 5:30 PM EDT) Anaerobic Culture No anaerobic organisms isolated [facility] Fluid 05/24/2023 5:30 PM EDT 05/24/2023 6:18 PM EDT Comment:Left L5/S1 facet flu id Narrative Resulting Agency Comment Spec In Lab Khris Adorno MD MICROBIOLOGY - GENER AL ORDERABLES Performing Organization Address [facility] Co de Phone Number [facility] [place] [place] [address] * Body Fluid Culture, Aerobic (05/24/2023 5:30 PM EDT) Body Fluid Culture No growth [facility] Gram Stain Few Neutrophils seen No microorganisms seen. [facility] Fluid 05/24/2023 5:30 PM EDT 05/24/2023 6:18 PM EDT Comment:Left L5/S1 facet flu id Narrative Resulting Agency Comment Spec In Lab Khris Adorno MD MICROBIOLOGY - GENER AL ORDERABLES Performing Organization Address [facility] [place] [address] * Anaerobic Culture (05/24/2023 5:20 PM EDT) Anaerobic Culture No anaerobic organisms isolated [facility] Fluid 05/24/2023 5:20 PM EDT 05/24/2023 6:17 PM EDT Comment:Enhancing right psoa s lesion on MRI, Abdominal pain, unspecified abdominal location Narrative Resulting Agency Comment Spec In Lab Khris Adorno MD MICROBIOLOGY - GENER AL ORDERABLES Performing Organization Address [facility] Co de Phone Number [facility] [place] [address] * Body Fluid Culture, Aerobic (05/24/2023 5:20 PM EDT) Body Fluid Culture No growth [facility] Gram Stain Few Neutrophils seen No microorganisms seen. [facility] Fluid 05/24/2023 5:20 PM EDT 05/24/2023 6:17 PM EDT Comment:Enhancing right psoa s lesion on MRI, Abdominal pain, unspecified abdominal location Narrative Resulting Agency Comment Spec In Lab Khris Adorno MD MICROBIOLOGY - [place] [address] documented in this encounter Visit Diagnoses Diagnosis Abdominal pain, unspecified abdominal location documented in this encounter Administered Medications Inactive Administered Medications - up to 3 most recent administrations Medication Order MAR Action Action Date Dose Rate Site fentaNYL (pf) (50 mcg/mL) multi-dose injection 25-50 mcg 25-50 mcg, Intravenous, EVERY 3 MIN PRN, Starting on Sosa 4 at 1529, Until Sosa 424 at 1811, Pain, per unit protocol, For use in Interventional Radiology (IR) only for procedural sedation with direct provider supervision and verbal order. - Start dose: 50 mcg (reduce dose to 25 mcg if history of sedation sensitivity). - Titration dose: 25-50 mcg IV, (based on patient response) every 3 minutes PRN to maintain procedural pain less than 2 per Pain Scale. Maximum dose: 50 mcg/dose, 250 mcg/hour, Angio/IR (Intra-Procedure), Routine Given 05/24/2023 5:14 PM EDT 25 mcg Given 05/24/2023 5:05 PM EDT 50 mcg Given 05/24/2023 4:58 PM EDT 50 mcg midazolam (pf) (Versed) (1 mg/mL) multi-dose injection 0.5-1 mg 0.5-1 mg, Intravenous, EVERY 3 MIN PRN, Starting on Sosa 424 at 1529, Until Sosa 424 at 1811, Sedation, For use in Interventional Radiology (IR) only for procedural sedation with direct provider supervision and verbal order. - Start dose: 1 mg (Reduce dose to 0.5 mg if history of sedation sensitivity). - Titration dose: 0.5 mg - 1 mg (based on patient response) every 3 minutes PRN to obtain RASS score of -3. Maximum dose: 1 mg/dose, 5 mg/hour., Angio/IR (Intra-Procedure), Routine Given 05/24/2023 5:14 PM EDT 0.5 mg Given 05/24/2023 5:05 PM EDT 1 mg Given 05/24/2023 4:58 PM EDT 1 mg documented in this encounter Care Teams Maintenance Plumber Relationship Specialty Start Date End Date Trinh Coates MD [address] [place] [address] PCP - General 01/11/10 documented as of this encounter
--- OUTSIDE RECORDS SUMMARY | 2023-09-07 11:23 | XMS_ITS | Encounter Summary ---
Author Organization [facility] Address [facility] [place] [address] Care Team Providers Care Home Inspector Name Role Phone Trinh Coates MD Primary Care Provider [phone] Encounter Details Date Type Department Care Team (Latest Contact Info) Description 05/15/2023 Travel Social History Tobacco Use Types Packs/Day [...] 01/22/2024 10:30 AM EST Appointment Mammography/[place] [address] Ladi Mendosa MD [facility] HEMATOLOGY/[place] [address] 01/30/2024 11:30 AM EST Office Visit Dermatology at [facility] [address] [place] [id number] Nilda Luis MD [facility] [address] [place] [address] 02/15/2024 9:30 AM EST Appointment [place] [address] [place] [address] documented as of this encounter Visit Diagnoses Not on filedocumented in this encounter Care Teams Home Inspector Relationship Specialty Start Date End Date Trinh Coates MD [facility] [address] [facility] [address] [place] [address] PCP - General 01/11/10 documented as of this encounter
--- OUTSIDE RECORDS SUMMARY | 2023-09-07 11:23 | XMS_ITS | Encounter Summary ---
Author Organization [facility] [place] [address] Care Team Providers Care Public Welfare Director Name Role Phone Trinh Coates MD Primary Care Provider [phone] Encounter Details Date Type Department Care Team (Late st Contact Info) Description 02/05/2023 Telephone [place] [phone] [place] [address] Social History Tobacco Use Types Packs/Day Years [...] Encounter - Joanna Watts MD - 02/05/2023 1:22 PM EST Patient called back. Her nosebleed stopped after an hour, has not needed to go to the ED. No doublevision, blurry vision, facial asymmetry, facial numbness, body numbnes or weakness. Last dose of ticagrelor was yesterday, so still functionally on DAPT. Suspect DAPT + dry heating systems in winter are the reason for her nosebleed as there was no trauma or inciting events. If the nosebleed starts again, I advised her to go to the ED. Continue to stay off ticagrelor, continue to take aspirin. Joanna Watts MD Open cerebrovascular and endovascular neurosurgery attending documented in this encounter Plan of Treatment Upcoming Encounters Date Type Department Care Team (Late st Contact Info) Description 01/22/2024 10:30 AM EST Appointment Mammography/DXA at [place] [phone] Ladi Mendosa MD [facility] HEMATOLOGY/[place] [address] 01/30/2024 11:30 AM EST Office Visit Dermatology at [address] [place] [address] Nilda Luis MD [facility] [address] [place] [address] 02/15/2024 9:30 AM EST Appointment [place] [address] [place] [address] documented as of this encounter Visit Diagnoses Not on filedocumented in this encounter Care Teams Public Welfare Director Relationship Specialty Start Date End Date Trinh Coates MD [address] [place] [address] PCP - General 01/11/10 documented as of this encounter
--- OUTSIDE RECORDS SUMMARY | 2023-09-07 11:23 | XMS_ITS | Encounter Summary ---
Author Organization [facility] Address [facility] [place] [address] Care Team Providers Care Paper Baling Machine Operator Name Role Phone Trinh Coates MD Primary Care Provider Encounter Details Date Type Department Care Team (Latest Contact Info) Description 06/13/2023 Travel Social History Tobacco Use Types Packs/Day [...] 01/22/2024 10:30 AM EST Appointment Mammography[place] [address] Ladi Mendosa MD [facility] HEMATOLOGY/[place] [address] 01/30/2024 11:30 AM EST Office Visit Dermatology at [facility] [address] [place] [phone] Nilda Luis MD [facility] [address] [address] 02/15/2024 9:30 AM [place] [address] [place] [address] documented as of this encounter Visit Diagnoses Not on filedocumented in this encounter Care Teams Paper Baling Machine Operator Relationship Specialty Start Date End Date Trinh Coates MD [facility] [address] [place] [address] PCP - General 01/11/10 documented as of this encounter
--- OUTSIDE RECORDS SUMMARY | 2023-09-07 11:23 | XMS_ITS | Encounter Summary ---
Author Organization [facility] [place] [address] Care Team Providers Care Purchasing Department Clerk Name Role Phone Trinh Coates MD Primary Care Provider [phone] Encounter Details Date Type Department Care Team (Late st Contact Info) Description 02/14/2023 Notes [place] [address] Araceli Levi, [place] [address] Social History Tobacco Use Types Packs/Day Years [...] on file documented as of this encounter Progress Notes * Araceli Levi APRN - 02/14/2023 8:27 AM EST NEURORADIOLOGY BRIEF PRE-PROCEDURE NOTE Name: Wendy Sandoval Date of : 1965 Referring Physician: Joanna Watts MD Indication: AXEL aneurysm, pipeline stent Planned Procedure: diagnostic cerebral angiogram Chief Complaint/HPI: Wendy Sandoval is a 57 y.o. female with PMH notable for CKD, followed by nephrology. Allergies: Allergies Allergen Reactions Penicillins Thrush PAT Penicillin Allergy Risk Assessment 07/20/2022: Moderate Risk Reaction. Patient referred to allergy clinic for pre-op testing. Other Reaction(s): Thrush Sertraline PSORIASIS FLARE Other Reaction(s): Skin Rash Medications: Current Outpatient Medications: acetaminophen (Tylenol) 325 mg tablet, Take 2 tablets by mouth every 4 hours as needed for Pain., Disp: 30 tablet, Rfl: 1 Stelara 45 mg/0.5 mL subcutaneous injection, MAINTENANCE: INJECT 1 SYRINGE SUBCUTANEOUSLY EVERY 12 WEEKS. REFRIGERATE. DO NOT FREEZE, Disp: 0.5 mL, Rfl: 2 exemestane (Aromasin) 25 mg tablet, Take 1 tablet by mouth daily., Disp: 90 tablet, Rfl: 3 prasterone, dhea, (Intrarosa) 6.5 mg Insert, Place 6.5 mg vaginally daily., Disp: 30 each, Rfl: 6 clobetasoL (Temovate) 0.05 % Ointment, Apply to vulva scant amount twice a day for 2 weeks and thennightly, Disp: 30 g, Rfl: 0 fluconazole (Diflucan) 150 mg tablet, Take 1 tablet by mouth every 3 days., Disp: 2 tablet, Rfl: 0 acetaminophen (Tylenol) 500 mg tablet, Take 1,000 mg by mouth every 6 hours as needed for Pain., Disp: , Rfl: fluorouraciL (EFUDEX) 5 % Cream, Apply a thin layer to affected areas on the right upper lip twice daily (morning and night) as tolerated for 2 weeks. CAUTION: THIS MEDICATION IS TOXIC TO PETS. (Patient not taking: Reported on 11/10/2022), Disp: 40 g, Rfl: 0 aspirin 81 mg chewable tablet, Take 81 mg by mouth daily., Disp: 30 tablet, Rfl: 3 gabapentin (Neurontin) 300 mg capsule, One in am, two at night, Disp: , Rfl: MULTI-VITAMIN ORAL, Take 1 tablet by mouth daily., Disp: , Rfl: calcium carbonate (CALCIUM 600 ORAL), Take 600 mg by mouth every other day., Disp: , Rfl: rosuvastatin (Crestor) 10 mg Tablet, TAKE 1 TABLET BY MOUTH DAILY AT BEDTIME, Disp: , Rfl: dilTIAZem (CARDIZEM CD) 240 mg Capsule, Sust. Release 24 hr, Take 240 mg by mouth daily., Disp: , Rfl: spironolactone (ALDACTONE) 25 mg Tablet, Take 1 tablet by mouth daily., Disp: 90 tablet, Rfl: 3 losartan (COZAAR) 100 mg Tablet, take 1 tablet by mouth once daily, Disp: , Rfl: 0 cholecalciferol, Vitamin D3, 125 mcg (5,000 unit) Tablet, Take by mouth daily., Disp: , Rfl: ferrous gluconate 324 mg (37.5 mg iron) Tablet, Take 324 mg by mouth daily., Disp: , Rfl: fluoxetine (PROZAC) 40 mg capsule, Take 40 mg by mouth daily., Disp: , Rfl: Labs: Creatinine Date Value Ref Range Status 02/01/2023 1.63 (H) 0.70 - 1.20 mg/dL Final 01/24/2023 1.91 (H) 0.70 - 1.20 mg/dL Final 11/08/2022 1.87 (H) 0.70 - 1.20 mg/dL Final 11/08/2022 1.87 (H) 0.70 - 1.20 mg/dL Final Platelets Date Value Ref Range Status 02/01/2023 332 145 - 357 x10(3)/mcL Final Imaging: in edh Assessment: 57 y.o. female with the above history. No contraindications to procedure. Will follow renal protocol for fluids abdiaziz-procedure, as follows: NaCl 0.9% 250ml/hr x 1 hour prior to procedure. NaCl 0.9% 100ml/hr during procedure. NaCl 0.9% 250ml/hr x 2 hours post procedure. Labs to be performed day of procedure: creatinine Medications to discontinue: none, continue ASA Position: supine Sedation: moderate Additional medications for procedure: Lidocaine 1% Consent: day of procedure Araceli Levi APRN 02/14/2023 8:27 AM documented in this encounter Plan of Treatment Upcoming Encounters Date Type Department Care Team (Late st Contact Info) Description 01/22/2024 10:30 AM EST Appointment Mammography/[place] [address] Ladi Mendosa MD [facility] DR HEMATOLOGY/[place] [address] 01/30/2024 11:30 AM EST Office Visit Dermatology at [facility] [address] [place] [address] Nilda Luis MD [facility] [address] [place] [address] 02/15/2024 9:30 AM [place] [address] [place] [address] Scheduled Orders Name Type Priority Associated Diagnoses Orde r Schedule Creatinine Lab STAT Hypertension, unspecified type Expected: 08/16/2023, Expires: 02/15/2024 documented as of this encounter Visit Diagnoses Diagnosis Hypertension, unspecified type documented in this encounter Care Teams Purchasing Department Clerk Relationship Specialty Start Date End Date Trinh Coates MD [facility] [address] [place] [address] PCP - General 01/11/10 documented as of this encounter
--- OUTSIDE RECORDS SUMMARY | 2023-09-07 11:23 | XMS_ITS | Encounter Summary ---
Author Organization [facility] [place] [address] Care Team Providers Care Cyber Forensic Specialist Name Role Phone Trinh Coates MD Primary Care Provider [phone] Encounter Details Date Type Department Care Team (Late st Contact Info) Description 02/05/2023 [place] [address] Tawana Booth RN Social History [...] Telephone Encounter - Tawana Booth RN - 02/05/2023 9:12 AM EST Patient's called and reports that patient has been having heavy nose bleed for approximately 45 minutes. He reports that is has not slowed down and there have been several clots that have come out of her nose as well. Patient stopped blood thinner yesterday but is still taking baby aspirin.Patient underwent DSA for R ICA aneurysm on 01/31/23. I have directed patient to go to the ED for further evaluation. Patient and in agreement. Will also send this information to Dr. Watts. documented in this encounter Plan of Treatment Upcoming Encounters Date Type Department Care Team (Late st Contact Info) Description 01/22/2024 10:30 AM EST Appointment Mammography/[place] [phone] Ladi Mendosa MD [facility] HEMATOLOGY/[place] [address] 01/30/2024 11:30 AM EST Office Visit Dermatology at [place] [address] [place] [phone] Nilda Luis MD [facility] [place] [address] 02/15/2024 9:30 AM EST [place] [phone] [place] [address] documented as of this encounter Visit Diagnoses Not on filedocumented in this encounter Care Teams Cyber Forensic Specialist Relationship Specialty Start Date End Date Trinh Coates MD [address] [place] [address] PCP - General 01/11/10 documented as of this encounter
--- OUTSIDE RECORDS SUMMARY | 2023-09-07 11:23 | XMS_ITS | Encounter Summary ---
Author Organization [facility] [place] [address] Care Team Providers Care Toll Collector Name Role Phone Trinh Coates MD Primary Care Provider [phone] Reason for Referral * Diagnostic Test (Routine) - Closed Specialty Diagnoses / Procedures Referred By Diamante marin Referred To Contact Radiology Diagnoses Abdominal pain, unspecified abdominal location Procedures CT Guided Aspiration Muscle Soft Tissue Juan Kat [place] [facility] [address] [facility] [place] [address] Referral ID Status Reason Start Date Expiration Date V isits Requested Visits Authorized [id number] Closed Specialty Service Requested 05/22/2023 11/20/2024 1 1 Encounter Details Date Type Department Care Team (Late st Contact Info) Description 05/22/2023 Notes [place] [address] Juan Kat PA [facility] [address] Social History Tobacco Use Types Packs/Day Years [...] on file documented as of this encounter H&P Notes * Juan Kat PA - 05/22/2023 12:01 PM EDT Images from the original note were not included. Interventional Radiology Focused Pre-procedure H&P: PCP: Tirnh Coates MD Procedure indication: Abdominal pain, enhancing right psoas lesion on MRI IR workflow: Interventional Radiology Service contacted by [facility] at 1140 regarding the procedure request below. History of present illness: Per chart review, Wendy Sandoval is a 57 y.o. female who presents toInterventional Radiology to undergo aspiration of enhancing right psoas in the setting of pain. Per neurosurgery note 05/21/23: [...] Wendy Sandoval who is a 57 y.o. 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 Watts) who presented to OSH yesterday with c/o sudden onset back pain with radiculopathy 2 days prior to presentation limiting ambulation; MRI was obtained today and shows a left sided T2 hyperintense, enhancing lesion in the paraspinal muscles adjacent to L5/S1 facet. Remainder of patient's medical and surgical history, allergies, medications, and social/family history obtained below as previously outlined in patient's medical record. IR history: 04/30/17 Rt breast drain exchange and repositioning, [...] R drain removed. Fentanyl 50 mcg IV [id number] Left breast aspiration/ 30 ml Fentanyl 100 [...] 4 mg IV and fentanyl 200 mcg 3. Cerebral Arteriogram - diagnostic Fentanyl 125 mcg, IV. Midazolam 1.5 mg, IV. Radial cocktail: heparin 3000 units, verapamil 2.5 mg, nitroglycerin 200 mcg, IV. 07/24/22 Cerebral Embolization ANES 01/31/23 Cerebral Angiogram Fentanyl 175 mcg IV, Versed 2 mg IV Imaging: Assessment: 57 y.o. female with enhancing right psoas on MRI presenting to Interventional Radiologyfor aspiration. Plan Planned procedure: Right psoas collection aspiration Labs to be performed day of procedure: No labs Sedation: Moderate (Conscious sedation) Prophylactic antibiotic : None Contrast: No contrast Additional medications for procedure: Lidocaine Position: Prone, Left Decub Consent: Pending Medications to discontinue (and days held): None Cytopathology presence needed: No Case Urgency:: F- Elective OUT-patient intervention within 3 days Plan or recommendation formulated in discussion with and directed by Interventional Radiology attending physician Carline. Labs: Lab Results Component Value Date HGB 12.1 02/01/2023 HCT 36.2 02/01/2023 WBC 9.0 02/01/2023 PLATELET 332 02/01/2023 INR 1.1 11/30/2017 BUN 40 (H) 05/15/2023 CREATININE 1.89 (H) 05/15/2023 ALBUMIN 4.3 2022 BILITOT 0.3 2022 AST 13 2022 ALT 16 2022 ALKPHOS 90 2022 Allergies: Penicillins and Sertraline Medications: Current Outpatient Medications on File Prior to Visit Medication Sig Dispense Refill ibuprofen (Motrin) 400 mg tablet Take 1 tab q 6 hrs daily as needed valACYclovir (Valtrex) 500 mg tablet TAKE ONE TABLET BY MOUTH TWICE A DAY FOR 3 DAYS Stelara 45 mg/0.5 mL subcutaneous injection MAINTENANCE: INJECT 1 SYRINGE SUBCUTANEOUSLY EVERY 12 WEEKS. REFRIGERATE. DO NOT FREEZE 0.5 mL 2 exemestane (Aromasin) 25 mg tablet Take 1 tablet by mouth daily. 90 tablet 3 clobetasoL (Temovate) 0.05 % Ointment Apply to [...] MEDICATION IS TOXIC TO PETS. 40 g 0 aspirin 81 mg chewable tablet Take 81 mg by mouth daily. 30 tablet 3 gabapentin (Neurontin) 300 mg capsule One in am, two at night calcium carbonate (CALCIUM 600 ORAL) Take 600 [...] facility-administered medications on file prior to visit. Past medical/surgical history: Patient Active Problem List Diagnosis Code Hypertension [...] Ulceration of vulva N76.6 Vulvar rash R21 Past Medical History: Diagnosis Date CKD (chronic [...] IR Arteriogram Cerebral 05/19/2022 Joanna Watts MD [facility] RAD IR ARTERIOGRAM CEREBRAL 01/31/2023 IR Arteriogram Cerebral 01/31/2023 Joanna Watts MD [facility] RAD IR DRAIN CHECK/CHANGE/REMOVE 11/20/2017 IR Drain Check/Change/Remove 11/20/2017 Marcos Dey MD [facility] RAD IR EMBOLIZATION CEREBRAL 07/24/2022 IR Embolization Cerebral 07/24/2022 Joanna Watts MD [facility] RAD IR MEDIPORT REMOVAL 01/25/2018 IR Mediport Removal 01/25/2018 Scooby Muñoz, AARTI [facility] RAD PRG EMG, LARYNX N/A 11/02/2015 FACIAL NERVE MONITORING, SETUP LARYNGEAL performed by Valentina Lucas MD at [facility] MAIN OR PRO BREAST RECONSTRUCTION IMMT/DLYD W/TISS PCMH SPECIALIST SBSQ EXPANSION Bilateral 04/26/2017 BREAST RECONSTRUCTION, IMMEDIATE OR DELAYED, W/ TISSUE PCMH SPECIALIST, INCLUDING SUBSEQUENT EXPANSION (WRVU 18.5) performed by Andre Gimenez MD at [facility] OR PRO BREAST RECONSTRUCTION W FREE FLAP Bilateral 04/26/2017 @BREAST RECONSTRUCTION W/ FREE FLAP, USSAN (WRVU 42.58) performed by Andre Gimenez MD at [facility] [place] PRO BREAST RECONSTRUCTION W/LATSMS D/SI FLAP WO PRSTHC IMPL Bilateral 12/12/2017 @BREAST RECONSTRUCTION W/ LAT DORSI FLAP,W/O IMPLANT, SUSAN (WRVU 23.36) performed by Andre Gimenez MD at [facility] OR [facility] DEBRIDEMENT SUBCUTANEOUS TISSUE 20 SQCM/< 06/22/2017 DEBRIDEMENT SKIN AND SUBCU, BREAST (WRVU 1.01) performed by Andre Gimenez MD at [facility] OR [facility] EXPLORE PARATHYROID GLANDS N/A 11/02/2015 PARATHYROIDECTOMY OR EXPLORATION OF PARATHYROID(S) performed by Valentina Lucas MD at [facility] OR [facility] FULL THICK GRFT TRUNK <20 SQCM Bilateral 04/26/2017 FTSG, FREE, DIR CLOSE DONOR SITE, TRUNK, 20 SQ CM OR LESS (WRVU 9.15) performed by Andre Gimenez MD at [facility] OR [facility] INCISION OF LYMPH CHANNELS Left 10/18/2018 INCISION & DRAINAGE LYMPHOCELE (WRVU 6.81) performed by Andre Gimenez MD at [facility] OR [facility] IV INJ TO TEST BLOOD FLOW IN FLAP/GRAFT Left 10/18/2018 IV INJECTION, AGENT TO TEST VASC FLOW IN FLAP OR GRAFT, ENT (WRVU 1.95) performed by Andre Gimenez MD at [facility] OR PRO MASTECTOMY, SIMPLE, COMPLETE Bilateral 04/26/2017 MASTECTOMY, SIMPLE, COMPLETE-SUSAN (WRVU 15.85) performed by Jolie Menendez MD at [facility] OR PRO PARTIAL REMOVAL OF RIB Bilateral 04/26/2017 EXCISION OF RIB, PARTIAL (WRVU 7.26) performed by Andre Gimenez MD at [facility] OR [facility] PERM OCCLUSION/EMBOLIZATION, PERCUT, PIPE TURNER N/A 07/24/2022 @TRANSCATHETER OCCLUSION/EMBOLIZATION FOR TUMOR DESTRUCTION (WRVU 20.12) performed by Joanna Watts MD at [facility] [place] PRO REMOVE ARMPITS LYMPH NODES COMPLT Left 04/26/2017 LYMPHADENECTOMY, AXILLARY, COMPLETE (WRVU 13.87) performed by Jolie Menendez MD at [facility] MAIN OR PRO REPLACE TISSUE PCMH SPECIALIST Bilateral 12/12/2017 TISSUE PCMH SPECIALIST REPLACEMENT, WITH PERMANENT PROSTHESIS, SUSAN (WRVU 8.01) performed by Andre Gimenez MD at [facility] MAIN OR PRO REVISION RECONSTRUCTED BREAST Left 06/22/2017 REVISION OF RECONSTRUCTED BREAST (WRVU 10.41) performed by Andre Gimenez MD at [facility] MAIN OR PRO REVISION RECONSTRUCTED BREAST Bilateral 12/12/2017 REVISION OFRECONSTRUCTED BREAST, SUSAN (WRVU 10.41) performed by Andre Gimenez MD at [facility] MAIN OR PRO THYMECTOMY, TRANSCERVICAL N/A 11/02/2015 THYMECTOMY, TRANSCERVICAL APPROACH performed by Valentina Lucas MD at [facility] MAIN OR SHOULDER SURGERY Left UMBILICAL HERNIA REPAIR Social history and habits: Social History Tobacco Use Smoking status: Former Types: Cigarettes Quit date: 08/07/1991 Years since quittin.8 Smokeless tobacco: Never Vaping Use Vaping Use: Never used Substance Use Topics Alcohol use: Yes Comment: socially once a month Drug use: No Significant family history: Family History Problem Relation Age of Onset [...] Other 57 Stomach Cancer Maternal Cousin 57 Pertinent ROS: as per HPI Physical exam: Pending (to be performed in interventional radiology the day of procedure) ASA: Pending (to be assessed in interventional radiology the day of procedure) Mallampati class: Pending (to be assessed in interventional radiology the day of procedure) 05/22/2023 STEVAN Leone documented in this encounter Plan of Treatment Upcoming Encounters Date Type Department Care Team (Late st Contact Info) Description 01/22/2024 10:30 AM EST Appointment Mammography/[place] [address] Ladi Mendosa MD [facility] HEMATOLOGY/[place] [address] 01/30/2024 11:30 AM EST Office Visit Dermatology at [place] [address] [place] [phone] Nilda Luis MD [facility] [place] [address] 02/15/2024 9:30 AM EST Appointment [place] [address] [place] [address] documented as of this encounter Results * CT Guided Aspiration [...] for the entire procedure. Andre Crowley MD IMG CT ORDERABLES documented in this encounter Visit Diagnoses Diagnosis Abdominal pain, unspecified abdominal location Abdominal pain, unspecified abdominal location documented in this encounter Care Teams Toll Collector Relationship Specialty Start Date End Date Trinh Coates MD [facility] [address] [place] [address] PCP - General 01/11/10 documented as of this encounter
--- OUTSIDE RECORDS SUMMARY | 2023-09-07 11:23 | XMS_ITS | Encounter Summary ---
[place] [address] Care Team Providers Care Defense Analyst Name Role Phone Trinh Coates MD Primary Care Provider [phone] Reason for Visit * Auth/Cert (Routine) Specialty Diagnoses / Procedures Referred By Diamante marin Referred To Contact Diagnoses Headache Post-Op monitoring Procedures ER [place]BSVO [place] [address] [facility] Referral ID Status Reason Start Date Expiration Date Visits Re quested Visits Authorized [id number] 1 1 Encounter Details Date Type Department Care Team (Latest Contact Info) Description 01/31/2023 10:15 PM EST - 02/01/2023 10:08 AM EST Hospital Encounter [place] [address] [place] [address] Discharge Disposition: Home Social History Tobacco Use [...] Sign Reading Time Taken Comments Blood Pressure 143/80 02/01/2023 7:39 AM EST Pulse - - Temperature 36.7 ??C (98.1 ??F) 02/01/2023 7:39 AM ES T Respiratory Rate 16 02/01/2023 3:55 AM EST Oxygen Saturation 98% 02/01/2023 7:39 AM EST Inhaled Oxygen Concentration - - Weight - - Height - - Body Mass Index - - documented in this encounter Discharge Summaries * Erich Davis MD - 02/01/2023 8:23 AM EST Images from the original note were not included. Neurosurgery Discharge Summary Patient Name: Wendy Sandoval Patient Age: 57 y.o. 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 Pending confirmation of complete occlusion, can d/c plavix, continue aspirin for life. The patient understands to contact neurosurgery or seek emergent help with any acute worsening of neurologic symptoms. PLAN SUMMARY: DSA Jan 2023 already scheduled Hospital Course: Patient was admitted electively to [facility] via the same day surgery program and underwent the above procedure. She tolerated DSA well and was transferred from the PACU to the Same Day in good condition a few hours after surgery. She was originally planned to go home after the procedure but was endorsing HODGES and we elected to keep her overnight for observation. In the AM, the HODGES resolved and patient was medically appropriate for discharge home. Patient Active Problem List Diagnosis Code Hypertension [...] - likely carotid cave I67.1 Headache R51.9 EXAM: Vital Signs at Discharge: Weight: Wt Readings from Last 1 Encounters: 01/02/23 81.6 kg (179 lb 14.3 oz) Height: Ht Readings from Last 1 Encounters: 01/02/23 152.4 cm (5') BMI: There is no height or weight on file to calculate BMI. Last value Range last 24 hrs Temperature Temp: 36.7 ??C (98.1 ??F) Temp: [36.6 ??C (97.9 ??F)-37.2 ??C (99 ??F)] Heart Rate Heart Rate: [54-76] Blood Pressure BP: 139/83 BP: (111-183)/(57-129) Respiratory Rate Resp: 16 Resp: [13-20] SpO2 SpO2: 97 % SpO2: [92 %-100 %] Physical Exam on Discharge: GEN:NAD NEURO:AA+Ox3 Speech fluent and appropriate. No facial asymmetry Tongue midline MOTOR: RUE:5/5 LUE:5/5 RLE: 5/5 LLE: 5/5 No pronator drift LT sensation intact x 4 Groin site without hematoma, Radial access site without hematoma Distal pulses palpable Dressings dry and intact Discharge Condition: Good Discharge to: Home Discharge Medications: Your Medications Continued medications with new dosing Dose Details * acetaminophen 500 mg tablet Commonly known as: Tylenol Take 1,000 mg by mouth every 6 hours as needed for Pain. What changed: Another medication with the same name was added. Make sure you understand how and when to take each. 1,000 mg Refills: 0 * acetaminophen 325 mg tablet Commonly known as: Tylenol Take 2 tablets by mouth every 4 hours as needed for Pain. What changed: You were already taking a medication with the same name, and this prescription was added. Make sure you understand how and when to take each. 650 mg Quantity: 30 tablet Refills: 1 * This list has 2 medication(s) that are the same as other medications prescribed for you. Read thedirections carefully, and ask your doctor or other care provider to review them with you. Continued medications, unchanged Dose Details aspirin 81 mg chewable tablet Take 81 mg by mouth daily. 81 mg Quantity: 30 tablet Refills: 3 CALCIUM 600 ORAL Take 600 mg by mouth every other day. 600 mg Refills: 0 cholecalciferol (Vitamin D3) 125 mcg (5,000 unit) tablet Commonly known as: Vitamin D3 Take by mouth daily. Refills: 0 clobetasoL 0.05 % Ointment Commonly known as: Temovate Apply to vulva scant amount twice a day for 2 weeks and then nightly Quantity: 30 g Refills: 0 dilTIAZem CD 240 mg CD (ER) 24 hr casule Commonly known as: Cardizem CD Take 240 mg by mouth daily. 240 mg Refills: 0 exemestane 25 mg tablet Commonly known as: Aromasin Take 1 tablet by mouth daily. 25 mg Quantity: 90 tablet Refills: 3 ferrous gluconate 324 mg (37.5 mg iron) tablet Commonly known as: Ferate Take 324 mg by mouth daily. 324 mg Refills: 0 fluconazole 150 mg tablet Commonly known as: Diflucan Take 1 tablet by mouth every 3 days. 150 mg Quantity: 2 tablet Refills: 0 FLUoxetine 40 mg capsule Commonly known as: PROzac Take 40 mg by mouth daily. 40 mg Refills: 0 gabapentin 300 mg capsule Commonly known as: Neurontin One in am, two at night Refills: 0 losartan 100 mg tablet Commonly known as: Cozaar take 1 tablet by mouth once daily Refills: 0 MULTI-VITAMIN ORAL Take 1 tablet by mouth daily. 1 tablet Refills: 0 prasterone (dhea) 6.5 mg Insert Commonly known as: Intrarosa Place 6.5 mg vaginally daily. 6.5 mg Quantity: 30 each Refills: 6 rosuvastatin 10 mg tablet Commonly known as: Crestor TAKE 1 TABLET BY MOUTH DAILY AT BEDTIME Refills: 0 spironolactone 25 mg tablet Commonly known as: Aldactone Take 1 tablet by mouth daily. 25 mg Quantity: 90 tablet Refills: 3 Stelara 45 mg/0.5 mL subcutaneous injection MAINTENANCE: INJECT 1 SYRINGE SUBCUTANEOUSLY EVERY 12 WEEKS. REFRIGERATE. DO NOT FREEZE Generic drug: ustekinumab Quantity: 0.5 mL Refills: 2 STOPPED Medications clopidogreL 75 mg tablet Commonly known as: Plavix UNREVIEWED medications - Discuss With Your Provider Dose Details fluorouraciL 5 % Cream Commonly known as: EFUDEX Apply a thin layer to affected areas on the right upper lip twice daily (morning and night) as tolerated for 2 weeks. CAUTION: THIS MEDICATION IS TOXIC TO PETS. Quantity: 40 g Refills: 0 Updated Allergies/ADRs: Allergies Allergen Reactions Penicillins Thrush PAT Penicillin Allergy Risk Assessment 07/20/2022: Moderate Risk Reaction. Patient referred to allergy clinic for pre-op testing. Other Reaction(s): Thrush Sertraline PSORIASIS FLARE Other Reaction(s): Skin Rash Instructions Given to Patient at Discharge: Patient Instructions ANGIOGRAM DISCHARGE INSTRUCTIONS PRESCRIPTION INSTRUCTIONS: Please see the medication reconciliation list on this discharge summary for a current list of your medications. WHEN TO SEEK MEDICAL CARE: Signs or symptoms of an infection - Fever over 101F - Redness, swelling, or increasing pain around your puncture site - Drainage of pus or blood from your puncture site Headaches - Headaches that are not relieved with pain medications, progressively worsen, or are severe New neurologic symptoms - New unsteadiness when walking - New weakness or sensory changes to one side of your body - Facial droop - Slurred speech or difficulty speaking - Confusion - Seizure - Any other concerning neurologic symptom Symptoms of a deep venous thrombosis (DVT) or pulmonary embolism (PE): - Swelling/warmth/redness of the leg - Pain in the leg, which can be worse with standing or walking - Chest pain or shortness of breath To help prevent a DVT: - Exercise regularly. Walking, at least several times daily, is helpful. - Ankle pump exercises (like pressing and releasing the gas pedal) should be done regularly. - Keep hydrated with water or other clear liquids (coffee/tea/cola can dehydrate you). - Avoid alcohol and crossing your legs. - Remember not to sit or lay in bed, while awake, for prolonged amounts of time. DIET: - You may resume your usual diet. ACTIVITY: - You may increase your activities as tolerated. - Restrict strenuous activity (such as running, jumping, jogging, shoveling, heavy lifting, etc.) for at least 2 weeks. - Do not drive while taking any narcotic pain medication, if prescribed. FOLLOW UP PLAN: We will plan for a follow up angiogram in one year. You will follow-up with: [x] Dr. Watts [] Dr. Durbin [] Dr. Meyer Imaging: [] CT: [] Head [] Neck [] CTA: [] Head [] Neck [] MRA: [] Head [] Neck HOW TO REACH NEUROSURGERY Office Hours (Sunday through Sunday 8am-5pm): Call On weekends or after office hours (after 5pm or before 8am): Call [phone] and ask the ballpoint pen assembly machine operator to page the Neurosurgery Resident/Advanced Practice Provider manufacturing controller. *Your surgeon may not be call center operator (especially after office hours or on the weekend) so be ready totell about yourself and your surgery when you call. Neurosurgery Providers Adult Neurosurgery Dr. Curtis Colunga Pediatric Neurosurgery Dr. Arpita Jarrett Advanced Practice Providers Nallely Barry, Nurse Practitioner (outpatient telehealth) Jackie Sarmiento, Physician Catalyst Operator Chief (inpatient/outpatient: neuro-oncology) Christy Bentley, Physician Catalyst Operator Chief (inpatient) Manuel Nunez, Nurse Practitioner (outpatient: pediatric) Araceli Levi, Nurse Practitioner (outpatient: vascular) Venessa Mckeon, Physician Catalyst Operator Chief (outpatient: spine) Mitch Aguilar Physician Catalyst Operator Chief (outpatient) Outpatient Nurses JENNYFER Mcfadden RN General Instructions None Future Appointments and Orders Future Appointments and Orders Future Appointments Provider Department Dept Phone 02/06/2023 11:20 AM Abby Phoenix CNM Obstetrics and Gynecology at [facility] Arrive at: Health Social Work Professor Area [phone] 07/17/2023 11:00 AM Nilda Luis MD Dermatology at [facility] Arrive at: Health Social Work Professor [address] [place] [address] Scheduled Appointments: Future Appointments Date Time Provider Department Center 02/06/2023 11:20 AM Abby Phoenix CNM [facility] OBG 5L [facility] 07/17/2023 11:00 AM Nilda Luis MD [facility] Primary Care Doctor: Trinh Coates MD [phone] Signed: Erich Davis MD 02/01/2023 documented in this encounter Discharge Instructions * Patient Instructions* Erich Davis MD - 02/01/2023 8:32 AM EST ANGIOGRAM DISCHARGE INSTRUCTIONS PRESCRIPTION INSTRUCTIONS: Please see the medication reconciliation list on this discharge summary for a current list of your medications. WHEN TO SEEK MEDICAL CARE: Signs or symptoms of an infection - Fever over 101F - Redness, swelling, or increasing pain around your puncture site - Drainage of pus or blood from your puncture site Headaches - Headaches that are not relieved with pain medications, progressively worsen, or are severe New neurologic symptoms - New unsteadiness when walking - New weakness or sensory changes to one side of your body - Facial droop - Slurred speech or difficulty speaking - Confusion - Seizure - Any other concerning neurologic symptom Symptoms of a deep venous thrombosis (DVT) or pulmonary embolism (PE): - Swelling/warmth/redness of the leg - Pain in the leg, which can be worse with standing or walking - Chest pain or shortness of breath To help prevent a DVT: - Exercise regularly. Walking, at least several times daily, is helpful. - Ankle pump exercises (like pressing and releasing the gas pedal) should be done regularly. - Keep hydrated with water or other clear liquids (coffee/tea/cola can dehydrate you). - Avoid alcohol and crossing your legs. - Remember not to sit or lay in bed, while awake, for prolonged amounts of time. DIET: - You may resume your usual diet. ACTIVITY: - You may increase your activities as tolerated. - Restrict strenuous activity (such as running, jumping, jogging, shoveling, heavy lifting, etc.) for at least 2 weeks. - Do not drive while taking any narcotic pain medication, if prescribed. FOLLOW UP PLAN: We will plan for a follow up angiogram in one year. You will follow-up with: [x] Dr. Watts [] Dr. Durbin [] Dr. Meyer Imaging: [] CT: [] Head [] Neck [] CTA: [] Head [] Neck [] MRA: [] Head [] Neck HOW TO REACH NEUROSURGERY Office Hours (Sunday through Sunday 8am-5pm): Call On weekends or after office hours (after 5pm or before 8am): Call [phone] and ask the ballpoint pen assembly machine operator to page the Neurosurgery Resident/Advanced Practice Provider manufacturing controller. *Your surgeon may not be call center operator (especially after office hours or on the weekend) so be ready totell about yourself and your surgery when you call. Neurosurgery Providers Adult Neurosurgery Dr. Curtis Colunga Pediatric Neurosurgery Dr. Arpita Jarrett Advanced Practice Providers Nallely Barry, Nurse Practitioner (outpatient telehealth) Jackie Sarmiento, Physician Catalyst Operator Chief (inpatient/outpatient: neuro-oncology) Christy Bentley, Physician Catalyst Operator Chief (inpatient) Manuel Nunez, Nurse Practitioner (outpatient: pediatric) Araceli Levi, Nurse Practitioner (outpatient: vascular) Venessa Mckeon, Physician Catalyst Operator Chief (outpatient: spine) Mitch Aguilar, Physician Catalyst Operator Chief (outpatient) Outpatient Nurses Rachna Guerrero, RN Gerald Zuluaga RN documented in this encounter Medications at Time [...] q 6 hrs daily as needed 11/15/2015 exemestane (Aromasin) 25 mg tabletIndications:Stan bañuelos neoplasm of upper-outer quadrant of left breast [...] by mouth daily. 90 tablet 3 07/23/2018 doxycycline (Vibramycin) 100 mg capsule TAKE TWO CAPSULES BY MOUTH A SINGLE DOSE 01/08/2023 05/15/2023 ferrous sulfate (FeroSul) 325 mg (65 mg iron) tablet 1 tablet. 01/26/2014 05/15/2023 fosfomycin tromethamine (MONUROL) 3 gram Packet DRINK ONE PACKET DISSOLVED IN WATER FOR A SINGLE DOSE 12/12/2022 05/15/2023 omeprazole (PriLOSEC OTC) [address] tablet 1 CAP daily 03/27/2014 024 acetaminophen (Tylenol) 325 mg tablet Take 2 tablets by mouth every 4 hours as needed for Pain. 30 tablet 1 02/01/2023 05/15/2023 Stelara 45 mg/0.5 mL subcutaneous injectionIndications:Ps oriasis MAINTENANCE: INJECT 1 SYRINGE SUBCUTANEOUSLY EVERY 12 WEEKS. REFRIGERATE. DO NOT FREEZE 0.5 mL 2 01/30/2023 07/17/2023 prasterone, dhea, (Intrarosa) 6.5 mg InsertIndications:Vagin al dryness, menopausal Place 6.5 mg vaginally daily. 30 each 6 11/10/2022 05/15/2023 MULTI-VITAMIN ORAL Take 1 tablet by mouth daily. 05/15/2023 documented as of this encounter Progress Notes * Flip Ye RN - 02/01/2023 10:07 AM EST [facility] Short Stay Unit Discharge Note All relevant discharge milestones have been met by the patent. After Visit Summary and discharge teaching reviewed with the patient. IV access has been discontinued. All personal belongings have been returned to the patient/family upon their departure from the unit. Patient has been discharged to home The patient has been discharged without VNA services. * Erich Davis MD - 02/01/2023 7:16 AM EST NEUROSURGERY PROGRESS NOTE ID: Wendy Sandoval is a 57 y.o. female with AXEL aneurism s/p prior pipeline stent placement whois now s/p routine f/u DSA HD# 1 POD # 1 INTERVAL HX/ROS: - HODGES better - Feels well MEDICATIONS: Scheduled Meds: aspirin 81 mg Oral Daily calcium carbonate 500 mg Oral Every Other Day cholecalciferol (Vitamin D3) 5,000 Units Oral Daily dilTIAZem CD 240 mg Oral Daily ferrous gluconate 324 mg Oral Daily FLUoxetine 40 mg Oral Daily losartan 100 mg Oral Daily rosuvastatin 10 mg Oral Nightly spironolactone 25 mg Oral Daily gabapentin 300 mg Oral QAM And gabapentin 600 mg Oral Nightly sodium chloride 0.9 % (flush) 5 mL Intravenous BID senna-docusate 2 tablet Oral BID acetaminophen 1,000 mg Oral Q6H GE[place] Or acetaminophen 975 mg Oral Q6H [place] Or acetaminophen 650 mg Rectal Q6H [place] Continuous Infusions: PRN Meds: sodium chloride 0.9 % (flush), lidocaine, polyethylene glycoL, ondansetron OR ondansetron, labetaloL EXAM: Vitals: Temp: [36.6 ??C (97.9 ??F)-37.2 ??C (99 ??F)] Heart Rate: [54-76] Resp: [13-20] BP: (111-183)/(57-129) SpO2: [92 %-100 %] Heart Rate from SpO2: [47 bpm-85 bpm] BMI: I/O: I/O last 3 completed shifts: In: 360 [P.O.:360] Out: 350 [Urine:350] GEN:NAD NEURO:AA+Ox3 Speech fluent and appropriate. No facial asymmetry Tongue midline MOTOR: RUE:5/5 LUE:5/5 RLE: 5/5 LLE: 5/5 No pronator drift LT sensation intact x 4 Groin site without hematoma, Radial access site without hematoma Distal pulses palpable Dressings dry and intact LABS: Recent Labs 02/01/23 0245 WBC 9.0 HGB 12.1 PLATELET 332 Recent Labs 02/01/23 0245 NA 138 K 4.3 CL 108* CO2 22 BUN 32* CREATININE 1.63* No results for input(s): PT, INR in the last 72 hours. IMAGING: none Assessment: Wendy Sandoval is a 57 y.o. female with AXEL aneurism s/p prior pipeline stent placement who is now s/p routine f/u DSA. Stayed the night for HODGES, now feels better. Problem List: AXEL aneurism Plan: - DC home today - Will follow up with repeat angio in 1 year PLEASE PAGE [phone] WITH QUESTIONS Active Hospital Problems Diagnosis Headache Resolved Hospital Problems No resolved problems to display. 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 History of breast cancer Seroma of breast Bacterial conjunctivitis Hypokalemia Surgery follow-up Abdominal wound dehiscence S/P breast reconstruction, bilateral Malignant neoplasm of upper-outer quadrant of left breast in female, estrogen receptor positive Hyperparathyroidism Obstructive sleep apnea (adult) (pediatric) OA (osteoarthritis) Overweight(278.02) Hypertension Depression Erich Davis MD 02/01/2023 Associated attestation - Joanna Watts MD - 02/06/2023 7:24 PM EST I, Joanna Watts, discussed the patient with the resident/ASHTYN team, personally reviewed the imaging, agree with the assessment and plan as documented in the resident/ASHTYN note, and personally evaluated the patient. No new neuro deficits. No hematoma at groin site. Headache resolved. Plan d/c home later. Joanna Watts MD Open cerebrovascular and endovascular neurosurgery attending documented in this encounter H&P Notes * Marilin Patel MD - 01/31/2023 10:26 PM EST Neurosurgery H&P Wendy Sandoval is being admitted for Obs/pain control (for headaches) following surveillance DSAon 01/31/23. HPI: Wendy Sandoval is a 57 y.o. female w PMH of HTN, breast cancer, CKD stage III (Cr 1-2) and JACQUELYN (on CPAP) and R ICA aneurysm s/p flow diverting stent placement via R HYDROGEOLOGY PROFESSOR (07/24/22; Dr. Watts) who returned 01/31/23 for surveillance DSA (via R HYDROGEOLOGY PROFESSOR) with hypertension to 180s post-procedure s/p hydralazine x2 after which she developed headaches and neck pain. Exam: NAD RRR CTAB AO x4 CN 2-12 intact No pronator drift Full strength x4 SILT x4 R groin Distal pulses BLE 2+ A/P: - Admit for Observation, NSGY Attending Dr. Watts - Ok for q4h neuro checks - Pain control - SBP 90-160 - Continue home meds Marilin Patel MD 01/31/23 10:26 PM Past Medical History: Past Medical History: Diagnosis Date CKD (chronic kidney disease) stage 3, GFR 30-59 ml/min Fibrocystic breast determined by biopsy High blood pressure Hyperlipidemia Hypertension Impaired fasting glucose Malignant neoplasm of upper-outer quadrant of left breast in female, estrogen receptor positive 03/31/2017 Obstructive sleep apnea on CPAP Proteinuria Past Surgical History: Past Surgical History: Procedure Laterality Date BREAST BIOPSY Right 11/01 SECTION x 2 HAND SURGERY Right IR ARTERIOGRAM CEREBRAL 05/19/2022 IR Arteriogram Cerebral 05/19/2022 Joanna Watts MD [facility] INTERVENTIONL RAD IR DRAIN CHECK/CHANGE/REMOVE 11/20/2017 IR Drain Check/Change/Remove 11/20/2017 Marcos Dey MD [facility] INTERVENTIONL RAD IR EMBOLIZATION CEREBRAL 07/24/2022 IR Embolization Cerebral 07/24/2022 Joanna Watts MD [facility] INTERVENTIONL RAD IR MEDIPORT REMOVAL 01/25/2018 IR Mediport Removal 01/25/2018 Scooby Muñoz, GAS DESULFURIZER [facility] INTERVENTIONL RAD PRG EMG, LARYNX N/A 11/02/2015 FACIAL NERVE MONITORING, SETUP LARYNGEAL performed by Valentina Lucas MD at [facility] MAIN OR PRO BREAST RECONSTRUCTION IMMT/DLYD W/TISS LITIGATION ASSOCIATE SBSQ EXPANSION Bilateral 04/26/2017 BREAST RECONSTRUCTION, IMMEDIATE OR DELAYED, W/ TISSUE LITIGATION ASSOCIATE, INCLUDING SUBSEQUENT EXPANSION (WRVU 18.5) performed by Andre Gimenez MD at [facility] MAIN OR PRO BREAST RECONSTRUCTION W FREE FLAP Bilateral 04/26/2017 @BREAST RECONSTRUCTION W/ FREE FLAP, SUSAN (WRVU 42.58) performed by Andre Gimenez MD at [facility] [place] PRO BREAST RECONSTRUCTION W/LATSMS D/SI FLAP WO PRSTHC IMPL Bilateral 12/12/2017 @BREAST RECONSTRUCTION W/ LAT DORSI FLAP,W/O IMPLANT, SUSAN (WRVU 23.36) performed by Andre Gimenez MD at [facility] MAIN OR PRO DEBRIDEMENT SUBCUTANEOUS TISSUE 20 SQCM/< 06/22/2017 DEBRIDEMENT SKIN AND SUBCU, BREAST (WRVU 1.01) performed by Andre Gimenez MD at [facility] OR [facility] EXPLORE PARATHYROID GLANDS N/A 11/02/2015 PARATHYROIDECTOMY OR EXPLORATION OF PARATHYROID(S) performed by Valentina Lucas MD at [facility] OR [facility] FULL THICK GRFT TRUNK <20 SQCM Bilateral 04/26/2017 FTSG, FREE, DIR CLOSE DONOR SITE, TRUNK, 20 SQ CM OR LESS (WRVU 9.15) performed by Andre Gimenez MD at [facility] OR [facility] INCISION OF LYMPH CHANNELS Left 10/18/2018 INCISION & DRAINAGE LYMPHOCELE (WRVU 6.81) performed by Andre Gimenez MD at [facility] OR [facility] IV INJ TO TEST BLOOD FLOW IN FLAP/GRAFT Left 10/18/2018 IV INJECTION, AGENT TO TEST VASC FLOW IN FLAP OR GRAFT, ENT (WRVU 1.95) performed by Andre Gimenez MD at [facility] OR [facility] MASTECTOMY, SIMPLE, COMPLETE Bilateral 04/26/2017 MASTECTOMY, SIMPLE, COMPLETE-SUSAN (WRVU 15.85) performed by Jolie Menendez MD at [facility] OR [facility] PARTIAL REMOVAL OF RIB Bilateral 04/26/2017 EXCISION OF RIB, PARTIAL (WRVU 7.26) performed by Andre Gimenez MD at [facility] OR [facility] PERM OCCLUSION/EMBOLIZATION, PERCUT, SURVEILLANCE ANALYST N/A 07/24/2022 @TRANSCATHETER OCCLUSION/EMBOLIZATION FOR TUMOR DESTRUCTION (WRVU 20.12) performed by Joanna Watts MD at [facility] REMOVE ARMPITS LYMPH NODES COMPLT Left 04/26/2017 LYMPHADENECTOMY, AXILLARY, COMPLETE (WRVU 13.87) performed by Jolie Menendez MD at [facility] OR [facility] REPLACE TISSUE LITIGATION ASSOCIATE Bilateral 12/12/2017 TISSUE LITIGATION ASSOCIATE REPLACEMENT, WITH PERMANENT PROSTHESIS, SUSAN (WRVU 8.01) performed by Andre Gimenez MD at [facility] MAIN OR [facility] REVISION RECONSTRUCTED BREAST Left 06/22/2017 REVISION OF RECONSTRUCTED BREAST (WRVU 10.41) performed by Andre Gimenez MD at [facility] OR [facility] REVISION RECONSTRUCTED BREAST Bilateral 12/12/2017 REVISION OFRECONSTRUCTED BREAST, SUSAN (WRVU 10.41) performed by Andre Gimenez MD at [facility] MAIN OR PRO THYMECTOMY, TRANSCERVICAL N/A 11/02/2015 THYMECTOMY, TRANSCERVICAL APPROACH performed by Valentina Lucas MD at [facility] MAIN OR SHOULDER SURGERY Left UMBILICAL HERNIA REPAIR Medications: Current Facility-Administered Medications on File Prior to Encounter Medication Dose Route Frequency Provider Last Rate Last Admin [COMPLETED] lidocaine (Xylocaine) 1% (10 mg/mL) injection 10 mg 10 mg Subcutaneous Once Araceli Levi GAS DESULFURIZER 10 mg at 01/31/23 1513 [COMPLETED] iodixanoL (Visipaque) (320 mg/mL) injection solution 1-400 mL 1-400 mL Intra-arterial Once Araceli Levi GAS DESULFURIZER 25 mL at 01/31/23 1315 [] sodium chloride 0.9% infusion 250 mL/hr Intravenous Continuous LeviAraceli castrejon APRN [] sodium chloride 0.9% infusion 100 mL/hr Intravenous Continuous LeviAraceli castrejon GAS DESULFURIZER hydrALAZINE (Apresoline) (20 mg/mL) injection 10 mg 10 mg Intravenous Q6H PRN Maximilian Sanchez MD 10 mg at 01/31/23 1632 [COMPLETED] hydrALAZINE (Apresoline) (20 mg/mL) injection 10 mg 10 mg Intravenous Once PRN Araceli Levi APRN 10 mg at 01/31/23 1836 [COMPLETED] acetaminophen (Tylenol) tablet 975 mg 975 mg Oral Once Marilin Patel MD 975 mg at 01/31/23 2030 [DISCONTINUED] sodium chloride 0.9 % (flush) (BD PosiFlush Normal Saline 0.9) flush 5 mL 5 mL Intravenous BID Araceli Levi APRN [DISCONTINUED] sodium chloride 0.9 % (flush) (BD PosiFlush Normal Saline 0.9) flush 5-20 mL 5-20 mLIntravenous Q1 Min PRN Araceli Levi APRN [DISCONTINUED] lidocaine (Xylocaine) 1% (10 mg/mL) injection 3 mg 0.3 mL Subcutaneous Once PRN Araceli Levi APRN [DISCONTINUED] sodium chloride 0.9 % (flush) (BD PosiFlush Normal Saline 0.9) flush 10 mL 10 mL Intravenous Daily PRN Araceli Levi GAS DESULFURIZER [DISCONTINUED] fentaNYL (pf) (50 mcg/mL) multi-dose injection 25-50 mcg 25-50 mcg Intravenous Q3 Min PRN Araceli Levi, GAS DESULFURIZER 50 mcg at 01/31/23 1542 [DISCONTINUED] flumazeniL (Romazicon) (0.1 mg/mL) injection 0.2 mg 0.2 mg Intravenous Q2 Min PRN Levi, Araceli Leach, GAS DESULFURIZER [DISCONTINUED] naloxone (NARCAN) injection 1 mg/mL 0.1 mg 0.1 mg Intravenous Q2 Min PRN Levi, Araceli Leach, GAS DESULFURIZER [DISCONTINUED] midazolam (pf) (Versed) (1 mg/mL) multi-dose injection 0.5-1 mg 0.5-1 mg IntravenousQ3 Min PRN Araceli Levi, GAS DESULFURIZER 0.5 mg at 01/31/23 1542 [DISCONTINUED] sodium chloride 0.9% infusion 1,000 mL Intravenous Continuous LeviAraceli GAS DESULFURIZER 100 mL/hr at 01/31/23 1428 1,000 mL at 01/31/23 1428 [DISCONTINUED] nitroGLYcerin 100 mcg/mL intracoronary dilution 200 mcg 200 mcg Intra-arterial Once LeviAraceli GAS DESULFURIZER [DISCONTINUED] verapamiL (Isoptin) (2.5 mg/mL) injection 2.5 mg 2.5 mg Intra- arterial Once LeviAraceli GAS DESULFURIZER [DISCONTINUED] heparin (porcine) (1,000 units/mL) injection 3,000 Units 3,000 Units Intra-arterial Once LeviAraceli GAS DESULFURIZER [DISCONTINUED] ondansetron (pf) (Zofran) (2 mg/mL) injection 4 mg 4 mg Intravenous Once PRN Levi,Araceli Leach, GAS DESULFURIZER [DISCONTINUED] sodium chloride 0.9 % (flush) (BD PosiFlush Normal Saline 0.9) flush 5 mL 5 mL Intravenous BID LeviAraceli castrejon GAS DESULFURIZER [DISCONTINUED] sodium chloride 0.9 % (flush) (BD PosiFlush Normal Saline 0.9) flush 5-20 mL 5-20 mLIntravenous Q1 Min PRN Levi, Araceli Leach GAS DESULFURIZER [DISCONTINUED] lidocaine (Xylocaine) 1% (10 mg/mL) injection 3 mg 0.3 mL Subcutaneous Once PRN Levi, Araceli L, GAS DESULFURIZER [DISCONTINUED] sodium chloride 0.9 % (flush) (BD PosiFlush Normal Saline 0.9) flush 10 mL 10 mL Intravenous Daily PRN Araceli Levi L, GAS DESULFURIZER [DISCONTINUED] fentaNYL (pf) (50 mcg/mL) multi-dose injection 25-50 mcg 25-50 mcg Intravenous Q3 Min PRN Levi, Araceli L, GAS DESULFURIZER [DISCONTINUED] flumazeniL (Romazicon) (0.1 mg/mL) injection 0.2 mg 0.2 mg Intravenous Q2 Min PRN Levi, Araceli L, GAS DESULFURIZER [DISCONTINUED] naloxone (NARCAN) injection 1 mg/mL 0.1 mg 0.1 mg Intravenous Q2 Min PRN Levi, Araceli L, GAS DESULFURIZER [DISCONTINUED] midazolam (pf) (Versed) (1 mg/mL) multi-dose injection 0.5-1 mg 0.5-1 mg IntravenousQ3 Min PRN Levi, Araceli L, GAS DESULFURIZER [DISCONTINUED] ondansetron (pf) (Zofran) (2 mg/mL) injection 4 mg 4 mg Intravenous Once PRN Araceli Levi L, GAS DESULFURIZER [DISCONTINUED] sodium chloride 0.9% infusion 100 mL/hr Intravenous Continuous Levi, Araceli L, GAS DESULFURIZER [DISCONTINUED] sodium chloride 0.9 % (flush) (BD PosiFlush Normal Saline 0.9) flush 5 mL 5 mL Intravenous BID Joanna Watts MD [DISCONTINUED] sodium chloride 0.9 % (flush) (BD PosiFlush Normal Saline 0.9) flush 5-20 mL 5-20 mLIntravenous Q1 Min PRN Joanna Watts MD [DISCONTINUED] lidocaine (Xylocaine) 1% (10 mg/mL) injection 3 mg 0.3 mL Subcutaneous Once PRN Joanna Watts MD [DISCONTINUED] sodium chloride 0.9 % (flush) (BD PosiFlush Normal Saline 0.9) flush 10 mL 10 mL Intravenous Daily PRN Joanna Watts MD [DISCONTINUED] fentaNYL (pf) (50 mcg/mL) multi-dose injection 25-50 mcg 25-50 mcg Intravenous Q3 Min PRN Joanna Watts MD [DISCONTINUED] flumazeniL (Romazicon) (0.1 mg/mL) injection 0.2 mg 0.2 mg Intravenous Q2 Min PRN Joanna Watts MD [DISCONTINUED] naloxone (NARCAN) injection 1 mg/mL 0.1 mg 0.1 mg Intravenous Q2 Min PRN Joanna Watts MD [DISCONTINUED] midazolam (pf) (Versed) (1 mg/mL) multi-dose injection 0.5-1 mg 0.5-1 mg IntravenousQ3 Min PRN Joanna Watts MD Current Outpatient Medications on File Prior to Encounter Medication Sig Dispense Refill Stelara 45 mg/0.5 mL subcutaneous injection MAINTENANCE: [...] capsule One in am, two at night [DISCONTINUED] clopidogreL (Plavix) 75 mg tablet Take 1 tablet by mouth daily. 90 tablet 3 MULTI-VITAMIN ORAL Take 1 tablet by mouth [...] capsule Take 40 mg by mouth daily. Allergies: Allergies Allergen Reactions Penicillins Thrush PAT Penicillin Allergy Risk Assessment 07/20/2022: Moderate Risk Reaction. Patient referred to allergy clinic for pre-op testing. Other Reaction(s): Thrush Sertraline PSORIASIS FLARE Other Reaction(s): Skin Rash Family History: Family History Problem Relation Age of Onset [...] 57 Stomach Cancer Maternal Cousin 57 Social History: Social History Socioeconomic History Marital status: Spouse name: Not on file Number of children: Not on file Years of education: Not on file Highest education level: Not on file Occupational History Not on file Tobacco Use Smoking status: Former Types: Cigarettes Quit date: 08/07/1991 Years since quittin.5 Smokeless tobacco: Never Vaping Use Vaping Use: Never used Substance and Sexual Activity Alcohol use: Yes Comment: socially once a month Drug use: No Sexual activity: Not on file Other Topics Concern Not on file Social History Narrative Not on file Social Determinants of Health Financial Resource Strain: Not on file Food Insecurity: Not on file Transportation Needs: Not on file Physical Activity: Not on file Intimate Partner Violence: Not on file Housing Stability: Not on file Review of Systems: As above, otherwise noncontributory. Vital Signs: Visit Vitals BP 133/70 SpO2 97% Labs: CBC: Lab Results Component Value Date/Time WBC 13.9 (H) 07/25/2022 02:21 AM HGB 10.5 (L) 07/25/2022 02:21 AM PLATELET 375 (H) 01/24/2023 12:12 PM BMP: Lab Results Component Value Date/Time NA 143 01/24/2023 12:12 PM K 4.5 01/24/2023 12:12 PM CL 106 01/24/2023 12:12 PM CO2 24 01/24/2023 12:12 PM BUN 35 (H) 01/24/2023 12:12 PM CREATININE 1.91 (H) 01/24/2023 12:12 PM Coags: No results found for: INR, PT, PTT Associated attestation - Joanna Watts MD - 02/05/2023 8:51 PM EST IJoanna, discussed the patient with the resident/ASHTYN team and personally reviewed the imaging. Suspect post-contrast headache and flat time related neck discomfort. Low suspicion for othermore serious etiologies of headache at this time, particularly given patient had not received any pain control, including Tylenol, at the time of evaluation. Plan to monitor closely. Joanna Watts MD Open cerebrovascular and endovascular neurosurgery attending documented in this encounter Miscellaneous Notes * Care Management - Shayna Hutson RN - 02/01/2023 10:08 AM EST Hospital Course: Patient was admitted electively to [facility] via the same day surgery program and underwent the above procedure. She tolerated DSA well and was transferred from the PACU to the Same Day in good condition a few hours after surgery. She was originally planned to go home after the procedure but was endorsing HODGES and we elected to keep her overnight for observation. In the AM, the HODGES resolved and patient was medically appropriate for discharge home. Left without OCM assessment. documented in this encounter Plan of Treatment Upcoming Encounters Date Type Department Care Team (Late st Contact Info) Description 01/22/2024 10:30 AM EST Appointment Mammography/[place] [phone] Ladi Mendosa MD [facility] HEMATOLOGY/[place] [address] 01/30/2024 11:30 AM EST Office Visit Dermatology at [address] [place] [id number] Nilda Luis MD [facility] DR LID[place] [address] 02/15/2024 9:30 AM EST [place] [address] [place] [address] documented as of this encounter Procedures Procedure Name Priority Date/Time Associated Diagnosis Comments HEMOGRAM Routine 02/01/2023 2:45 AM EST DIFFERENTIAL, AUTOMATED Routine 02/01/2023 2:45 AM EST HC CBC,PLT & AUTO DIFF Routine 02/01/2023 2:45 AM EST BASIC METABOLIC PANEL (NON-FASTING) Routine 02/01/2023 2:45 AM EST documented in this encounter Results * (ABNORMAL) Differential, Automated (02/01/2023 2:45 AM EST) Neutrophils % 62.8 % [facility] Neutr Abs (ANC) 5.62 1.70 - 6.10 x10(3)/mc L [facility] Lymphocytes % 20.2 % [facility] Lymphocytes Abs 1.8 0.9 - 3.2 x10(3)/mc L [facility] Monocytes % 10.9 % [facility] Monocyte Abs 1.0(H) 0.3 - 0.9 x10(3)/mc L [facility] Eosinophils % 4.0 % [facility] Eosinophils Abs 0.4 0.0 - 0.4 x10(3)/mc L [facility] Basophils % 1.5 % [facility] Basophils Abs 0.1 0.0 - 0.1 x10(3)/ L [facility] Immature Gran % 0.60 % [facility] Comment: Immature granulocytes(IG's)percentage and absolute count will include metamyelocytes, myelocytes, and promyelocytes. Blood smears from CBCs yielding IG's will be scanned manually for concordance. If this scan disagrees with the automated IG or if promyelocytes are noted, a manual differential will be performed. Nova Gran Abs 0.05(H) 0.00 - 0.04 x10(3)/ L [facility] Blood 02/01/2023 2:45 AM EST 02/01/2023 2:56 AM EST Narrative Resulting Agency Comment Spec In Lab Marilin Patel MD HEMATOLOGY ORDERAB LES Performing Organization Address City/State/[facility] Co de Phone Number [facility] [place] [address] * (ABNORMAL) Hemogram (02/01/2023 2:45 AM EST) WBC 9.0 4.0 - 9.5 x10(3)/[facility] RBC 3.78(L) 4.00 - 5.21 x10(6)/[facility] Hemoglobin 12.1 11.7 - 15.5 g/dL [facility] Hematocrit 36.2 35.7 - 45.8 % [facility] MCV 95.8(H) 82.6 - 94.4 fL [facility] MCH 32.0 27.1 - 32.0 pg [facility] MCHC 33.4 31.7 - 35.0 g/dL [facility] Platelets 332 145 - 357 x10(3)/[facility] RDWSD 49.1(H) 37.0 - 46.0 [facility] RDWCV 13.8 11.5 - 14.1 % [facility] MPV 8.8 7.6 - 12.9 [facility] nRBC % Auto 0.0 % [facility] nRBC Abs Auto 0.000 0.000 - 0.000 x10(3)/mcL [facility] Blood 02/01/2023 2:45 AM EST 02/01/2023 2:56 AM EST Narrative Resulting Agency Comment Spec In Lab Marilin Patel MD HEMATOLOGY ORDERAB LES [facility] [place] [address] * (ABNORMAL) Basic Metabolic Panel (non-fasting) (02/01/2023 2:45 AM EST) Glucose Lvl 79 65 - 199 mg/dL [facility] Comment:Diabetes: >=200 mg/d L plus symptoms BUN 32(H) 8 - 18 mg/dL [facility] Creatinine 1.63(H) 0.70 - 1.20 mg/dL [facility] Sodium 138 135 - 145 mmol/L [facility] Potassium 4.3 3.5 - 5.0 mmol/L [facility] Comment: Please note: ??Patients with WBC >100,000 may have falsely elevated Potassium levels. ??For accurate Potassium quantification in these patients send serum separator tube (gold top) for subsequent determinations. ??Contact the Clinical Chemistry Laboratory if there are any questions. Chloride 108(H) 98 - 107 mmol/L [facility] CO2 22 22 - 31 mmol/L [facility] Anion Gap 8 5 - 15 mmol/L [facility] Calcium 8.6 8.5 - 10.5 mg/dL [facility] Estimated GFR 36(L) >=60 mL/min/1. 73 m?? [facility] Comment: This patient's estimated GFR [...] and symptoms in addition to eGFR. Blood 02/01/2023 2:45 AM EST 02/01/2023 2:56 AM EST Narrative Resulting Agency Comment Spec In Lab Joanna Watts MD CHEMISTRY ORDERABLE S [facility] [place] [address] documented in this encounter Visit Diagnoses Diagnosis Headache- Primary documented in this encounter Admitting Diagnoses Diagnosis Headache documented in this encounter Administered Medications Inactive Administered Medications - up to 3 most recent administrations Medication Order MAR Action Action Date Dose Rate Site acetaminophen (Tylenol) (32.02 mg/mL) oral liquid 1,000 mg 1,000 mg, Oral, EVERY 6 HOURS SCHEDULED, First dose on Sosa 02/01/23 at 0000, Until Discontinued, Maximum dose of acetaminophen is 4,000 mg from all sources in 24 hours. When ordered for pain, acetaminophen should be given even when other ordered pain medications are indicated., Routine acetaminophen (Tylenol) suppository 650 mg 650 mg, Rectal, EVERY 6 HOURS SCHEDULED, First dose on Sosa 02/01/23 at 0000, Until Discontinued, Maximum dose of acetaminophen is 4,000 mg from all sources in 24 hours. When ordered for pain, acetaminophen should be given even when other ordered pain medications are indicated., Routine acetaminophen (Tylenol) tablet 975 mg 975 mg, Oral, EVERY 6 HOURS SCHEDULED, First dose on Sosa 02/01/23 at 0000, Until Discontinued, Maximum dose of acetaminophen is 4,000 mg from all sources in 24 hours. When ordered for pain, acetaminophen should be given even when other ordered pain medications are indicated., Routine Given 02/01/2023 6:04 AM EST 975 mg Given 01/31/2023 11:16 PM EST 975 mg aspirin chewable tablet 81 mg 81 mg, Oral, DAILY, First dose on Sosa 02/01/23 at 0900, Until Discontinued, Routine Given 02/01/2023 8:40 AM EST 81 mg calcium carbonate (TUMS) chewable tablet 500 mg 500 mg, Oral, EVERY OTHER DAY, First dose on Sun02/01/23 at 0900, Until Discontinued Given 02/01/2023 8:36 AM EST 500 mg cholecalciferol (Vitamin D3) tablet 5,000 Units 5,000 Units, Oral, DAILY, First dose on Sun02/01/23 at 0900, Until Discontinued, Routine Given 02/01/2023 8:36 AM EST 5,000 Units dilTIAZem CD (Cardizem CD) capsule 240 mg 240 mg, Oral, DAILY, First dose on Sun02/01/23 at 0900, Until Discontinued, DO NOT CRUSH OR OPEN, Routine Given 02/01/2023 8:37 AM EST 240 mg diphenhydrAMINE (Benadryl) (50 mg/mL) injection 25 mg 25 mg, Intravenous, ONCE, 1 dose, On Sun01/31/23 at 2345, Severe headache cocktail: administer 25mg benadryl IV followed by 10mg compazine IV. If headache does not improve to a tolerable level, administer 30mg toradol IV and page provider., Routine Given 01/31/2023 11:10 PM EST 25 m g ferrous gluconate (Ferate) tablet 324 mg 324 mg, Oral, DAILY, First dose on Sun02/01/23 at 0900, Until Discontinued Given 02/01/2023 8:41 AM EST 324 mg FLUoxetine (PROzac) capsule 40 mg 40 mg, Oral, DAILY, First dose on Sun02/01/23 at 0900, Until Discontinued, Routine Given 02/01/2023 8:40 AM EST 40 mg gabapentin (Neurontin) capsule 300 mg 300 mg, Oral, EVERY MORNING, First dose on Sun02/01/23 at 0700, Until Discontinued, Routine Given 02/01/2023 6:04 AM EST 300 mg gabapentin (Neurontin) capsule 600 mg 600 mg, Oral, NIGHTLY, First dose on Sun01/31/23 at 2315, Until Discontinued, Routine Given 01/31/2023 10:42 PM EST 600 mg losartan (Cozaar) tablet 100 mg 100 mg, Oral, DAILY, First dose on Sun02/01/23 at 0900, Until Discontinued, Routine Given 02/01/2023 8:39 AM EST 100 mg ondansetron (pf) (Zofran) (2 mg/mL) injection 4 mg 4 mg, Intravenous, EVERY 8 HOURS PRN, Starting on Sun01/31/23 at 2215, Until Sun02/01/23 at 1209, Nausea, If multiple antiemetics are ordered, use ondansetron first, prochlorperazine second, and metoclopramide third. PO Preferred. If patient unable to take PO, may give IV if ordered. May repeat times one in 30 minutes if ineffective. Maximum daily dose = 24 mg/24 hours ondansetron (Zofran) tablet 4 mg 4 mg, Oral, EVERY 8 HOURS PRN, Starting on Sun01/31/23 at 2215, Until Sosa 02/01/23 at 1209, Nausea, Vomiting, If multiple antiemetics are ordered, use ondansetron first, prochlorperazine second, and metoclopramide third. PO Preferred. If patient unable to take PO, may give IV if ordered. May repeat times one in 45 minutes if ineffective. Maximum daily dose = 24 mg/24 hours, Routine prochlorperazine (Compazine) (5 mg/mL) injection 10 mg 10 mg, Intravenous, ONCE, 1 dose, On Sun01/31/23 at 2345, Severe headache cocktail: administer 25mg benadryl IV followed by 10mg compazine IV. If headache does not improve to a tolerable level, administer 30mg toradol IV and page provider., Routine Given 01/31/2023 11:11 PM EST 10 m g rosuvastatin (Crestor) tablet 10 mg 10 mg, Oral, NIGHTLY, First dose on Sun01/31/23 at 2315, Until Discontinued, Routine Given 01/31/2023 10:42 PM EST 10 mg sodium chloride 0.9 % (flush) (BD PosiFlush Normal Saline 0.9) flush 5 mL 5 mL, Intravenous, 2 TIMES DAILY, First dose on Sun01/31/23 at 2315, Until Discontinued, Recovery (Recovery-Hospital Unit), Routine Given 02/01/2023 8:42 AM EST 5 mLs Given 01/31/2023 10:49 PM EST 5 mLs sodium chloride 0.9% 1,000 mL IV bolus Intravenous, ONCE, 1 dose, On Sun01/31/23 at 2345 New Bag 01/31/2023 11:10 PM EST spironolactone (Aldactone) tablet 25 mg 25 mg, Oral, DAILY, First dose on Sosa 02/01/23 at 0900, Until Discontinued, DO NOT SPLIT, CRUSH OR OPEN, Routine Given 02/01/2023 8:39 AM EST 25 mg documented in this encounter Active and Recently Administered Medications Times are shown in EST. Scheduled Medication Order 01/30/2023 01/31/2023 02/01/2023 acetaminophen (Tylenol) (32.02 mg/mL) oral liquid 1,000 mg(Linked Group 1) 1,000 mg, Oral, EVERY 6 HOURS SCHEDULED, First dose on Sosa 02/01/23 at 0000, Until Discontinued, Maximum dose of acetaminophen is 4,000 mg from all sources in 24 hours. When ordered for pain, acetaminophen should be given even when other ordered pain medications are indicated., Routine 2316 (See Alternative - Provider: Jacqueline Mcfarlane RN) 0604 (See Alternative - Provider: Jacqueline Mcfarlane RN) acetaminophen (Tylenol) suppository 650 mg(Linked Group 1) 650 mg, Rectal, EVERY 6 HOURS SCHEDULED, First dose on Sosa 02/01/23 at 0000, Until Discontinued, Maximum dose of acetaminophen is 4,000 mg from all sources in 24 hours. When ordered for pain, acetaminophen should be given even when other ordered pain medications are indicated., Routine 2316 (See Alternative - Provider: Jacqueline Mcfarlane RN) 0604 (See Alternative - Provider: Jacqueline Mcfarlane RN) acetaminophen (Tylenol) tablet 975 mg(Linked Group 1) 975 mg, Oral, EVERY 6 HOURS SCHEDULED, First dose on Sosa 02/01/23 at 0000, Until Discontinued, Maximum dose of acetaminophen is 4,000 mg from all sources in 24 hours. When ordered for pain, acetaminophen should be given even when other ordered pain medications are indicated., Routine 2316 (Given - Provider: Jacqueline Mcfarlane RN) 0604 (Given - Provider: Jacqueline Mcfarlane RN) aspirin chewable tablet 81 mg 81 mg, Oral, DAILY, First dose on Sun02/01/23 at 0900, Until Discontinued, Routine 0840 (Given - Provid er: Flip eY RN) calcium carbonate (TUMS) chewable tablet 500 mg 500 mg, Oral, EVERY OTHER DAY, First dose on Sun02/01/23 at 0900, Until Discontinued 0836 (Given - Provid er: Flip Ye RN) cholecalciferol (Vitamin D3) tablet 5,000 Units 5,000 Units, Oral, DAILY, First dose on Sun02/01/23 at 0900, Until Discontinued, Routine 0836 (Given - Provid er: Flip Ye RN) dilTIAZem CD (Cardizem CD) capsule 240 mg 240 mg, Oral, DAILY, First dose on Sun02/01/23 at 0900, Until Discontinued, DO NOT CRUSH OR OPEN, Routine 0837 (Given - Provid er: Flip Ye RN) diphenhydrAMINE (Benadryl) (50 mg/mL) injection 25 mg (COMPLETED) 25 mg, Intravenous, ONCE, 1 dose, On Sun01/31/23 at 2345, Severe headache cocktail: administer 25mg benadryl IV followed by 10mg compazine IV. If headache does not improve to a tolerable level, administer 30mg toradol IV and page provider., Routine 2310 (Given - Provider: Jacqueline Mcfarlane RN) ferrous gluconate (Ferate) tablet 324 mg 324 mg, Oral, DAILY, First dose on Sun02/01/23 at 0900, Until Discontinued 08 (Given - Provid er: Flip Ye RN) FLUoxetine (PROzac) capsule 40 mg 40 mg, Oral, DAILY, First dose on Sun02/01/23 at 0900, Until Discontinued, Routine 0840 (Given - Provid er: Flip Ye RN) gabapentin (Neurontin) capsule 300 mg(Linked Group 2) 300 mg, Oral, EVERY MORNING, First dose on Sun02/01/23 at 0700, Until Discontinued, Routine 0604 (Given - Provid er: Jacqueline Mcfarlane RN) gabapentin (Neurontin) capsule 600 mg(Linked Group 2) 600 mg, Oral, NIGHTLY, First dose on 12/13/23 at 2315, Until Discontinued, Routine 224 (Given - Provider: Jacqueline Mcfarlane RN) losartan (Cozaar) tablet 100 mg 100 mg, Oral, DAILY, First dose on Sun02/01/23 at 0900, Until Discontinued, Routine 0839 (Given - Provid er: Flip Ye RN) prochlorperazine (Compazine) (5 mg/mL) injection 10 mg (COMPLETED) 10 mg, Intravenous, ONCE, 1 dose, On Sun01/31/23 at 2345, Severe headache cocktail: administer 25mg benadryl IV followed by 10mg compazine IV. If headache does not improve to a tolerable level, administer 30mg toradol IV and page provider., Routine 2310 (Given - Provider: Jacqueline Mcfarlane RN) rosuvastatin (Crestor) tablet 10 mg 10 mg, Oral, NIGHTLY, First dose on Sun01/31/23 at 2315, Until Discontinued, Routine 2241 (Given - Provider: Jacqueline Mcfarlane RN) senna-docusate (Pericolace) 8.6-50 mg per tablet 2 tablet 2 tablet, Oral, 2 TIMES DAILY, First dose on Sun01/31/23 at 2315, Until Discontinued, Hold for loose stool. , Routine 2314 (Not Given - Provider: Jacqueline Mcfarlane RN - Reason: Patient/family refused) 0900 (Not Given - Provider: Flip Ye RN - Reason: Patient/family refused) sodium chloride 0.9 % (flush) (BD PosiFlush Normal Saline 0.9) flush 5 mL 5 mL, Intravenous, 2 TIMES DAILY, First dose on Sun01/31/23 at 2315, Until Discontinued, Recovery (Recovery-Hospital Unit), Routine 224 (Given - Provider: Jacqueline Mcfarlane RN) 0842 (Given - Provider: Flip Ye, RN) sodium chloride 0.9% 1,000 mL IV bolus (COMPLETED) Intravenous, ONCE, 1 dose, On Sun01/31/23 at 2345 2310 (New Bag - Provider: Jacqueline Mcfarlane RN) spironolactone (Aldactone) tablet 25 mg 25 mg, Oral, DAILY, First dose on Sun02/01/23 at 0900, Until Discontinued, DO NOT SPLIT, CRUSH OR OPEN, Routine 0839 (Given - Provid er: Flip Ye RN) PRN Medication Order 01/30/2023 01/31/2023 02/01/2023 labetaloL (Normodyne) (5 mg/mL) injection solution 10-20 mg 10-20 mg, Intravenous, EVERY 1 HOUR PRN, Starting on Sun01/31/23 at 2215, Until Sosa 02/01/23 at 1209, High Blood Pressure, Target systolic blood pressure (SBP) less than 160 mmHg. Administer 10 mg over 2 minutes. May repeat every 15 minutes if SBP remains above goal. If inadequate effect with second 10 mg dose, then increase dose to 20 mg for subsequent dosing every 15 minutes. Dose not to exceed 300 mg per day. Hold if pulse is less than 50 beats per minute., Routine lidocaine (Xylocaine) 1% (10 mg/mL) injection 3 mg 3 mg (0.3 mL), Subcutaneous, ONCE PRN, 1 dose, Starting on Sun01/31/23 at 2215, Until Sosa 02/01/23 at 1209, for discomfort with PIV insertion, Recovery (Recovery-Hospital Unit), Routine ondansetron (pf) (Zofran) (2 mg/mL) injection 4 mg(Linked Group 3) 4 mg, Intravenous, EVERY 8 HOURS PRN, Starting on Sun01/31/23 at 2215, Until Sosa 02/01/23 at 1209, Nausea, If multiple antiemetics are ordered, use ondansetron first, prochlorperazine second, and metoclopramide third. PO Preferred. If patient unable to take PO, may give IV if ordered. May repeat times one in 30 minutes if ineffective. Maximum daily dose = 24 mg/24 hours ondansetron (Zofran) tablet 4 mg(Linked Group 3) 4 mg, Oral, EVERY 8 HOURS PRN, Starting on Sun01/31/23 at 2215, Until Sosa 02/01/23 at 1209, Nausea, Vomiting, If multiple antiemetics are ordered, use ondansetron first, prochlorperazine second, and metoclopramide third. PO Preferred. If patient unable to take PO, may give IV if ordered. May repeat times one in 45 minutes if ineffective. Maximum daily dose = 24 mg/24 hours, Routine polyethylene glycoL (Miralax) packet 17 g 17 g, Oral, DAILY PRN, Starting on Sun01/31/23 at 2215, Until Sosa 02/01/23 at 1209, Constipation, Administer if no bowel movement within 48 hours to achieve: (1) One bowel movement at least every 48 hours, AND (2) without straining. If multiple PRN bowel medications ordered, start with polyethylene glycoL, then lactulose, then oral bisacodyL, then bisacodyL suppository, then magnesium citrate, then tap water enema. Multiple medications may be given concomitantly for constipation., Routine sodium chloride 0.9 % (flush) (BD PosiFlush Normal Saline 0.9) flush 5-20 mL 5-20 mL, Intravenous, EVERY 1 MIN PRN, Starting on Sun01/31/23 at 2215, Until Sosa 02/01/23 at 1209, flush, Flush pertains to all indwelling lines. Flush per protocol found in the job aid using the link provided on this medication record., Recovery (Recovery-Hospital Unit), Routine Linked Groups Order Group 1: acetaminophen (Tylenol) (32.02 mg/mL) oral liquid 1,000 mgJump to med 1,000 mg, Oral, EVERY 6 HOURS SCHEDULED, First dose on Sosa 02/01/23 at 0000, Until Discontinued, Maximum dose of acetaminophen is 4,000 mg from all sources in 24 hours. When ordered for pain, acetaminophen should be given even when other ordered pain medications are indicated., Routine Or acetaminophen (Tylenol) tablet 975 mgJump to med 975 mg, Oral, EVERY 6 HOURS SCHEDULED, First dose on Sosa 02/01/23 at 0000, Until Discontinued, Maximum dose of acetaminophen is 4,000 mg from all sources in 24 hours. When ordered for pain, acetaminophen should be given even when other ordered pain medications are indicated., Routine Or acetaminophen (Tylenol) suppository 650 mgJump to med 650 mg, Rectal, EVERY 6 HOURS SCHEDULED, First dose on Sosa 02/01/23 at 0000, Until Discontinued, Maximum dose of acetaminophen is 4,000 mg from all sources in 24 hours. When ordered for pain, acetaminophen should be given even when other ordered pain medications are indicated., Routine Group 2: gabapentin (Neurontin) capsule 300 mgJump to med 300 mg, Oral, EVERY MORNING, First dose on Sosa 02/01/23 at 0700, Until Discontinued, Routine And gabapentin (Neurontin) capsule 600 mgJump to med 600 mg, Oral, NIGHTLY, First dose on Sun01/31/23 at 2315, Until Discontinued, Routine Group 3: ondansetron (Zofran) tablet 4 mgJump to med 4 mg, Oral, EVERY 8 HOURS PRN, Starting on Sun01/31/23 at 2215, Until Sosa 02/01/23 at 1209, Nausea, Vomiting, If multiple antiemetics are ordered, use ondansetron first, prochlorperazine second, and metoclopramide third. PO Preferred. If patient unable to take PO, may give IV if ordered. May repeat times one in 45 minutes if ineffective. Maximum daily dose = 24 mg/24 hours, Routine Or ondansetron (pf) (Zofran) (2 mg/mL) injection 4 mgJump to med 4 mg, Intravenous, EVERY 8 HOURS PRN, Starting on Sun01/31/23 at 2215, Until Sosa 02/01/23 at 1209, Nausea, If multiple antiemetics are ordered, use ondansetron first, prochlorperazine second, and metoclopramide third. PO Preferred. If patient unable to take PO, may give IV if ordered. May repeat times one in 30 minutes if ineffective. Maximum daily dose = 24 mg/24 hours documented in this encounter Care Teams Defense Analyst Relationship Specialty Start Date End Date Trinh Coates MD [address] [place] [address] PCP - General 01/11/10 documented as of this encounter
--- OUTSIDE RECORDS SUMMARY | 2023-09-07 11:23 | XMS_ITS | Encounter Summary ---
Author Organization [facility] [place] [address] Care Team Providers Care Wastewater Plant Civil Engineer Name Role Phone Trinh Coates MD Primary Care Provider [phone] Encounter Details Date Type Department Care Team (Latest Contact Info) Description 01/31/2023 8:44 PM EST - 01/31/2023 10:14 PM [facility] Hospital [place] [address] [place] [address] Discharge Disposition: Home Social History Tobacco Use [...] on file documented as of this encounter Medications at Time of Discharge [...] as needed 11/15/2015 exemestane (Aromasin) 25 mg tabletIndications:Malsamara nantomas neoplasm of upper-outer quadrant of left breast [...] daily. 05/15/2023 documented as of this encounter Plan of Treatment Upcoming Encounters Date Type Department Care Team (Late st Contact Info) Description 01/22/2024 10:30 AM EST Appointment Mammography/[place] [phone] Ladi Mendosa MD [facility] HEMATOLOGY/[place] [address] 01/30/2024 11:30 AM EST Office Visit Dermatology at [address] [phone] Nilda Luis MD [facility] [address] [address] 02/15/2024 9:30 AM [place] [address] Joanna Watts MD [place], [place] [id number] documented as of this encounter Procedures Procedure Name Priority Date/Time Associated Diagnosis Comments CT HEAD WO CONTRAST (GENERIC) STAT 01/31/2023 8:47 PM EST documented in this encounter Results * CT Head wo Contrast (Generic) (01/31/2023 8:47 PM EST) Anatomical Region Laterality Modality Head Computed Tomogra phy Impressions 01/31/2023 8:56 PM EST No acute intracranial hemorrhage, mass or mass effect. Thank you for letting us participate in the care of this patient. ??If you are a health care provider and have any questions regarding this report, please contact the number below. ??For patients who have questions please contact the health dog day care attendant that requested your imaging first. ? Narrative 01/31/2023 8:56 PM EST EXAMINATION: CT HEAD WO CONTRAST (GENERIC) CLINICAL HISTORY: headache s/p DSA TECHNIQUE: CT head performed without intravenous contrast administration. COMPARISON: CT angiogram of the [place] 11/08/2022. Head CT 07/24/2022 FINDINGS: Ventricles are normal in size. Basal cisterns are patent. No mass effect or midline shift. No acute intracranial hemorrhage. No extra-axial fluid collections. Alas matter white matter differentiation is well preserved, no evidence of acute cortical infarction. The orbits are unremarkable. The visualized paranasal sinuses are clear. The mastoid air cells are clear. Incomplete osseous fusion of the posterior arch of C1, a normal anatomic variant. No suspicious osseous lesions. No calvarial fracture. No scalp hematoma. There is a stent within the right cavernous and supraclinoid ICA. Procedure Note Bill Smith MD - 01/31/2023 EXAMINATION: CT HEAD WO CONTRAST (GENERIC) CLINICAL HISTORY: headache s/p DSA TECHNIQUE: CT head performed without intravenous contrast administration. COMPARISON: CT angiogram of the [place] 11/08/2022. Head CT 07/24/2022 FINDINGS: Ventricles are normal in size. Basal cisterns are patent. No mass effector midline shift. No acute intracranial hemorrhage. No extra-axial fluid collections. Alas matter white matter differentiation is well preserved,no evidence of acute cortical infarction. The orbits are unremarkable. The visualized paranasal sinuses are clear. The mastoid air cells are clear. Incomplete osseous fusion of the posterior arch of C1, a normal anatomic variant. No suspicious osseous lesions. No calvarial fracture. No scalp hematoma. There is a stent within the right cavernous and supraclinoid ICA. IMPRESSION No acute intracranial hemorrhage, mass or mass effect. Thank you for letting us participate in the care of this patient. If youare a health care provider and have any questions regarding this report,please contact the number below. For patients who have questions please contactthe health dog day care attendant that requested your imaging first. Araceli Leach Levi CLEANER LABORATORY EQUIPMENT IMG CT ORDERABLES documented in this encounter Visit Diagnoses Not on filedocumented in this encounter Care Teams Wastewater Plant Civil Engineer Relationship Specialty Start Date End Date Trinh Coates MD [address] [place] [address] PCP - General 01/11/10 documented as of this encounter
--- OUTSIDE RECORDS SUMMARY | 2023-09-07 11:23 | XMS_ITS | Encounter Summary ---
Author Organization [facility] [place] [address] Care Team Providers Care Roving Winder Name Role Phone Trinh Coates MD Primary Care Provider [phone] Encounter Details Date Type Department Care Team (Late st Contact Info) Description 07/30/2023 [place] [address] Felisa Chavis Social History Tobacco Use Types Packs/Day Years [...] encounter Miscellaneous Notes * Telephone Encounter - Felisa Chavis - 07/30/2023 11:59 AM EDT Left message to reschedule angiogram on 12/[address] Watts is out of office documented in this encounter Plan of Treatment Upcoming Encounters Date Type Department Care Team (Late st Contact Info) Description 01/22/2024 10:30 AM EST Appointment Mammography/[place] [address] Ladi Mendosa MD [facility] [place] [address] 01/30/2024 11:30 AM EST Office Visit Dermatology at [facility] [address] [place] [address] Nilda Luis MD [facility] [place] [address] 02/15/2024 9:30 AM EST [place] [address] [place] [address] documented as of this encounter Visit Diagnoses Not on filedocumented in this encounter Care Teams Roving Winder Relationship Specialty Start Date End Date Trinh Coates MD [facility] [address] [place] [address] PCP - General 01/11/10 documented as of this encounter
--- OUTSIDE RECORDS SUMMARY | 2023-09-07 11:23 | XMS_ITS | Encounter Summary ---
Author Organization [facility] [place] [address] Care Team Providers Care Ice Delivery Driver Name Role Phone Trinh Coates MD Primary Care Provider [phone] Encounter Details Date Type Department Care Team (Late st Contact Info) Description 02/06/2023 Telephone [place] [address] [place] [address] Social History Tobacco Use Types Packs/Day Years [...] * Telephone Encounter - Jazmyn Bowen - 02/06/2023 1:37 PM EST Recall entered in edh for Jan 2024 angiogram ----- Message from Joanna Watts MD sent at 02/06/2023 9:59 AM EST ----- F/u angiogram in Jan 2024 please! documented in this encounter Plan of Treatment Upcoming Encounters Date Type Department Care Team (Late st Contact Info) Description 01/22/2024 10:30 AM EST Appointment Mammography/[place] [address] Ladi Mendosa MD [facility] HEMATOLOGY/[place] [address] 01/30/2024 11:30 AM EST Office Visit Dermatology at [place] [address] [place] [phone] Nilda Luis MD [facility] [place] [address] 02/15/2024 9:30 AM EST Appointment [place] [address] [place] [address] documented as of this encounter Visit Diagnoses Not on filedocumented in this encounter Care Teams Ice Delivery Driver Relationship Specialty Start Date End Date Trinh Coates MD [facility] [address] [place] [address] PCP - General 01/11/10 documented as of this encounter
--- OUTSIDE RECORDS SUMMARY | 2023-09-07 11:23 | XMS_ITS | Encounter Summary ---
Author Organization [facility] [place] [address] Care Team Providers Care Backend Java Developer Name Role Phone Trinh Coates MD Primary Care Provider [phone] Encounter Details Date Type Department Care Team (Late st Contact Info) Description 06/13/2023 2:00 PM EDT Office [place] [address] [place] [address] Sciatica of right side Social History Tobacco Use Types Packs/Day Years [...] Mass Index 36.34 06/13/2023 1:45 PM EDT documented in this encounter Progress Notes * Joanna Watts MD - 06/13/2023 2:00 PM EDT Cerebrovascular & Neurosurgery Clinic Note Patient Wendy Sandoval 1965 DATE OF VISIT: 06/13/2023 REASON FOR VISIT: Problem List Items Addressed This Visit Sciatica RELEVANT NARRATIVE: Wendy Sandoval is a 57 y.o. 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 She is following up today for admission at OSH for radiating low back pain. Pain started on a morning, she awoke with right lower back pain radiating into the right leg. The prior night she bent over to metal pickling equipment operator a toy for her dog and felt something shift or pop in her back, but it wasn't painful. She has had prior L sided sciatic pain, but no prior back surgeries, injections, or other intervention. Got progressively worse, then went to the ED at [facility] via EMS. No incontinence or retention, but had difficulty making it to the bathroom in time due to pain. Her mri w/wo contrast was concerning for an area of contrast enhancement in the paraspinal muscles medial to the left L5/S1 facet joint now s/p IR biopsy with no growth from cultures to date. She hasnot had any antibiotic therapy and has no had any fevers or chills. Has been improving with NSAIDs,PT. Her pain is much improved today, only a residual ache at her right lower back. No further radiatingleg pain. No assistive devices, walked to appt without difficulty today. PAST MEDICAL HISTORY: Past Medical History: Diagnosis Date CKD (chronic kidney disease) stage 3, GFR 30-59 ml/min Fibrocystic breast determined by biopsy Fibrocystic breast disease 02/19/1999 High blood pressure Hyperlipidemia Hypertension Impaired fasting glucose Malignant neoplasm of upper-outer quadrant of left breast in female, estrogen receptor positive 03/31/2017 Obstructive sleep apnea on CPAP Proteinuria Tubular adenoma of colon 05/15/2023 PAST SURGICAL HISTORY: Past Surgical History: Procedure Laterality Date BREAST BIOPSY Right 11/[address] GUIDED ASPIRATION MUSCLE 05/24/2023 CT Guided Aspiration Muscle Soft Tissue 05/24/2023 Khris Adorno MD [facility] RAD CT SCAN HAND SURGERY Right IR ARTERIOGRAM CEREBRAL 05/19/2022 IR Arteriogram Cerebral 05/19/2022 Joanna Watts MD [facility] INTERVENTIONL RAD IR ARTERIOGRAM CEREBRAL 01/31/2023 IR Arteriogram Cerebral 01/31/2023 Joanna Watts MD [facility] INTER[facility]ION[facility] RAD IR DRAIN CHECK/CHANGE/REMOVE 11/20/2017 IR Drain Check/Change/Remove 11/20/2017 Marcos Dey MD [facility] RAD IR EMBOLIZATION CEREBRAL 07/24/2022 IR Embolization Cerebral 07/24/2022 Joanna Watts MD [facility] RAD IR MEDIPORT REMOVAL 01/25/2018 IR Mediport Removal 01/25/2018 Scooby Muñoz, STATION DETECTIVE [facility] INTER[facility]ION[facility] RAD PRG EMG, LARYNX N/A 11/02/2015 FACIAL NERVE MONITORING, SETUP LARYNGEAL performed by Valentina Lucas MD at [facility] MAIN OR PRO BREAST RECONSTRUCTION IMMT/DLYD W/TISS APPEALS REVIEWER VETERAN SBSQ EXPANSION Bilateral 04/26/2017 BREAST RECONSTRUCTION, IMMEDIATE OR DELAYED, W/ TISSUE APPEALS REVIEWER VETERAN, INCLUDING SUBSEQUENT EXPANSION (WRVU 18.5) performed by Andre Gimenez MD at [facility] MAIN OR PRO BREAST RECONSTRUCTION W FREE FLAP Bilateral 04/26/2017 @BREAST RECONSTRUCTION W/ FREE FLAP, SUSAN (WRVU 42.58) performed by Andre Gimenez MD at [facility] LLOYD PRO BREAST RECONSTRUCTION W/LATSMS D/SI FLAP WO PRSTHC IMPL Bilateral 12/12/2017 @BREAST RECONSTRUCTION W/ LAT DORSI FLAP,W/O IMPLANT, SUSAN (WRVU 23.36) performed by Andre Gimenez MD at [facility] MAIN OR PRO DEBRIDEMENT SUBCUTANEOUS TISSUE 20 SQCM/< 06/22/2017 DEBRIDEMENT SKIN AND SUBCU, BREAST (WRVU 1.01) performed by Andre Gimenez MD at [facility] MAIN OR PRO EXPLORE PARATHYROID GLANDS N/A 11/02/2015 PARATHYROIDECTOMY OR EXPLORATION OF PARATHYROID(S) performed by Valentina Lucas MD at [facility] OR [facility] FULL THICK GRFT TRUNK <20 SQCM Bilateral 04/26/2017 FTSG, FREE, DIR CLOSE DONOR SITE, TRUNK, 20 SQ CM OR LESS (WRVU 9.15) performed by Andre Gimenez MD at [facility] OR [facility] INCISION OF LYMPH CHANNELS Left 10/18/2018 INCISION & DRAINAGE LYMPHOCELE (WRVU 6.81) performed by Andre Gimenez MD at [facility] OR [facility] IV INJ TO TEST BLOOD FLOW IN FLAP/GRAFT Left 10/18/2018 IV INJECTION, AGENT TO TEST VASC FLOW IN FLAP OR GRAFT, ENT (WRVU 1.95) performed by Andre Gimenez MD at [facility] OR [facility] MASTECTOMY, SIMPLE, COMPLETE Bilateral 04/26/2017 MASTECTOMY, SIMPLE, COMPLETE-SUSAN (WRVU 15.85) performed by Jolie Menendez MD at [facility] OR [facility] PARTIAL REMOVAL OF RIB Bilateral 04/26/2017 EXCISION OF RIB, PARTIAL (WRVU 7.26) performed by Andre Gimenez MD at [facility] OR [facility] PERM OCCLUSION/EMBOLIZATION, PERCUT, SENIOR BUSINESS ARCHITECT N/A 07/24/2022 @TRANSCATHETER OCCLUSION/EMBOLIZATION FOR TUMOR DESTRUCTION (WRVU 20.12) performed by Joanna Watts MD at [facility] ENRIQUE PRO REMOVE ARMPITS LYMPH NODES COMPLT Left 04/26/2017 LYMPHADENECTOMY, AXILLARY, COMPLETE (WRVU 13.87) performed by Jolie Menendez MD at [facility] OR [facility] REPLACE TISSUE APPEALS REVIEWER VETERAN Bilateral 12/12/2017 TISSUE APPEALS REVIEWER VETERAN REPLACEMENT, WITH PERMANENT PROSTHESIS, SUSAN (WRVU 8.01) performed by Andre Gimenez MD at [facility] MAIN OR [facility] REVISION RECONSTRUCTED BREAST Left 06/22/2017 REVISION OF RECONSTRUCTED BREAST (WRVU 10.41) performed by Andre Gimenez MD at [facility] OR [facility] REVISION RECONSTRUCTED BREAST Bilateral 12/12/2017 REVISION OFRECONSTRUCTED BREAST, SUSAN (WRVU 10.41) performed by Andre Gimenez MD at [facility] MAIN OR [facility] THYMECTOMY, TRANSCERVICAL N/A 11/02/2015 THYMECTOMY, TRANSCERVICAL APPROACH performed by Valentina Lucas MD at [facility] MAIN OR SHOULDER SURGERY Left UMBILICAL HERNIA REPAIR OBJECTIVE: BP 136/85 (BP Location (NBP): Right arm, Patient Position: Sitting, BP Cuff Sizes: Adult (25-34 cm)) Pulse 79 Temp 36.6 ??C (97.8 ??F) (Temporal) Resp 17 Ht 152.4 cm (5') Wt 84.4 kg (186 lb1.1 oz) SpO2 95% BMI 36.34 kg/m?? RELEVANT FINDINGS ON NEUROLOGIC EXAMINATION: Well-appearing, NAD Awake, alert, and in no acute distress Speech: Appropriate and fluent; answers questions appropriately Cranial Nerves: Vision is grossly intact. No facial asymmetry or gross CN deficits. Motor: Deconditioned, o/w normal muscle bulk and tone. No pronator drift. STRENGTH R L Shoulder Abduction Elbow Flexion 5 5 Elbow Extension 5 5 Wrist Dorsiflexion Finger Abduction Chartered Financial Analyst 5 5 Hip Flexion 5 5 Knee Flexion 5 5 Knee Extension 5 5 Ankle dorsiflexion 5 5 Ankle plantarflexion 5 5 Extensor hallucis 5 5 Muscle strength gradin = normal, 3= antigravity only, 0 = no muscle firing Sensation: Grossly intact to light touch in all four extremities. No deficits BLE. Gait: Independent and stable CURRENT MEDICATIONS: FLUoxetine, acetaminophen, aspirin, calcium carbonate, cholecalciferol (Vitamin D3), clobetasoL, dilTIAZem CD, exemestane, ferrous gluconate, fluconazole, fluorouraciL, gabapentin, ibuprofen, losartan, rosuvastatin, spironolactone, ustekinumab, and valACYclovir IMAGING & STUDIES PERSONALLY INTERPRETED: Reviewed MRI L spine 05/21/2023. Multilevel mild degenerative disease with a minor disk herniation atL3/4. No central stenosis. No clear neural foraminal stenosis from a disk herniation. Appreciate the area of contrast enhancement with central hypointensity on T1 post images near the L5/S1 facet. ASSESSMENT & PLAN: Problem List Items Addressed This Visit Sciatica She is clinically doing much better with NSAIDs, PT, there were no symptoms of infection, and her cultures are all negative. I think this pain was likely musculoskeletal in nature rather than infectious, and she has made excellent progress. We will plan for prn follow up for this problem and our next touch point will be her DSA in December 2023. The patient understands to contact neurosurgery or seek emergent help with any acute worsening of neurologic symptoms. I spent a total of 30 minutes in the care of this patient today including review of prior notes, review of prior images, interval history, physical exam as outlined above, personal review and independent interpretation of studies outlined above, patient counseling, documentation in the medical record, and coordination of care. -- Joanna Watts MD Open cerebrovascular and endovascular neurosurgery attending Section of Neurosurgery Department of Surgery [facility] documented in this encounter Plan of Treatment Upcoming Encounters Date Type Department Care Team (Late st Contact Info) Description 01/22/2024 10:30 AM EST Appointment Mammography/[place] [phone] Ladi Mendosa MD [facility] HEMATOLOGY/[place] [address] 01/30/2024 11:30 AM EST Office Visit Dermatology at [address] [address] Nilda Luis MD [facility] [place] [address] 02/15/2024 9:30 AM EST [place] [phone] [place] [address] documented as of this encounter Visit Diagnoses Diagnosis Sciatica of right side Sciatica documented in this encounter Care Teams Backend Java Developer Relationship Specialty Start Date End Date Trinh Coates MD [facility] [address] [place] [address] PCP - General 01/11/10 documented as of this encounter
--- OUTSIDE RECORDS SUMMARY | 2023-09-07 11:23 | XMS_ITS | Encounter Summary ---
Author Organization [facility] Address [facility] [place] [address] Care Team Providers Care Network Systems Administrator Name Role Phone Trinh Coates MD Primary Care Provider [phone] Encounter Details Date Type Department Care Team (Latest Contact Info) Description 05/15/2023 1:30 PM EDT Laboratory Appointment Lab [address] [place] [phone] Chronic kidney disease, unspecified CKD stage Social [...] 01/22/2024 10:30 AM EST Appointment Mammography/[place] [phone] Ladi Mendosa MD [facility] [address] HEMATOLOGY/[place] [address] 01/30/2024 11:30 AM EST Office Visit Dermatology at [facility] [address] [place] [phone] Nilda Luis MD [facility] [address] [place] [address] 02/15/2024 9:30 AM EST [place] [phone] [place] [address] documented as of this encounter Procedures Procedure Name Priority Date/Time Associated Diagnosis Comments HC PARATHYROID HORMONE(PTH INTACT Routine 05/15/2023 1:15 PM EDT Chronic kidney disease, unspecified CKD stage HC VENIPUNCTURE Routine 05/15/2023 1:15 PM EDT Chronic kidney disease, unspecified CKD stage HC MAGNESIUM, SERUM Routine 05/15/2023 1 :15 PM EDT Chronic kidney disease, unspecified CKD stage BASIC METABOLIC PANEL (NON-FASTING) Routine 05/15/2023 1:15 PM EDT Chronic kidney disease, unspecified CKD stage documented in this encounter Results * (ABNORMAL) Basic Metabolic Panel (non-fasting) (05/15/2023 1:15 PM EDT) Glucose Lvl 184 65 - 199 mg/dL [facility] Comment:Diabetes: >=200 mg/d L plus symptoms BUN 40(H) 8 - 18 mg/dL [facility] Creatinine 1.89(H) 0.70 - 1.20 mg/dL [facility] Sodium 141 135 - 145 mmol/L [facility] Potassium 4.7 3.5 - 5.0 mmol/L [facility] Comment: Please note: ??Patients with WBC >100,000 may have falsely elevated Potassium levels. ??For accurate Potassium quantification in these patients send serum separator tube (gold top) for subsequent determinations. ??Contact the Clinical Chemistry Laboratory if there are any questions. Chloride 106 98 - 107 mmol/L [facility] CO2 22 22 - 31 mmol/L [facility] Anion Gap 13 5 - 15 mmol/L [facility] Calcium 9.4 8.5 - 10.5 mg/dL [facility] Estimated GFR 30(L) >=60 mL/min/1. 73 m?? [facility] Comment: This patient's estimated [...] In Lab Zackery Dawson MD CHEMISTRY ORDERABLES Performing Organization Address [facility] Co de Phone Number [facility] [place] [address] * Magnesium (05/15/2023 1:15 PM EDT) Magnesium 0.95 0.69 - 1.07 mmol/L [facility] Blood 05/15/2023 1:15 PM EDT 05/15/2023 1:18 PM EDT Narrative Resulting Agency Comment Spec In Lab Zackery Dawson MD CHEMISTRY ORDERABLES Performing Organization Address [facility]/ZIP Co de Phone Number [facility] [place] [address] * PTH (05/15/2023 1:15 PM EDT) PTH 47 15 - 65 pg/mL [facility] Blood 05/15/2023 1:15 PM EDT 05/15/2023 1:18 PM EDT Narrative Resulting Agency Comment Spec In Lab Zackery Dawson MD CHEMISTRY ORDERABLES Performing Organization Address City/[facility]/ZIP Co de Phone Number [facility] [place] [address] * Vitamin D, 25-Hydroxy (05/15/2023 1:15 PM EDT) 25-OH Vit D Total 62 21 - 100 ng/mL [facility] 25-OH Vit D Interp Sufficient [facility] Blood 05/15/2023 1:15 PM EDT 05/15/2023 1:18 PM EDT Narrative Resulting Agency Comment Spec In Lab Zackery Dawson MD CHEMISTRY ORDERABLES Performing Organization Address City/[facility]/ZIP Co de Phone Number [facility] [place] [address] documented in this encounter Visit Diagnoses Diagnosis Chronic kidney disease, unspecified CKD stage documented in this encounter Care Teams Network Systems Administrator Relationship Specialty Start Date End Date Trinh Coates MD [address] [place] [address] PCP - General 01/11/10 documented as of this encounter
--- OUTSIDE RECORDS SUMMARY | 2023-09-07 11:23 | XMS_ITS | Encounter Summary ---
Author Organization [facility] Address [facility] [place] [address] Care Team Providers Care Business Continuity Planner Name Role Phone Trinh Coates MD Primary Care Provider [phone] Encounter Details Date Type Department Care Team (Latest Contact Info) Description 05/24/2023 Travel Social History Tobacco Use Types Packs/Day [...] 01/22/2024 10:30 AM EST Appointment Mammography/[place] [address] Ladi Mendosa MD [facility] HEMATOLOGY/[place] [address] 01/30/2024 11:30 AM EST Office Visit Dermatology at [facility] [address] [place] [phone] Nilda Luis MD [facility] DR [place] [address] 02/15/2024 9:30 AM EST Appointment [place] [address] [place] [address] documented as of this encounter Visit Diagnoses Not on filedocumented in this encounter Care Teams Business Continuity Planner Relationship Specialty Start Date End Date Trinh Coates MD [facility] [address] [facility] [place] [address] PCP - General 01/11/10 documented as of this encounter
--- OUTSIDE RECORDS SUMMARY | 2023-09-07 11:23 | XMS_ITS | Encounter Summary ---
Author Organization [facility] Address [facility] [place] [address] Care Team Providers Care Routing Clerk Name Role Phone Trinh Coates MD Primary Care Provider [phone] Encounter Details Date Type Department Care Team (Late st Contact Info) Description 05/21/2023 [place] [phone] Marilin Patel MD [facility] [place] [address] Social History Tobacco Use Types Packs/Day Years [...] encounter Miscellaneous Notes * Telephone Encounter - Marilin Patel MD - 05/21/2023 4:13 PM EDT CC: back pain with radiculopathy in setting of paraspinal enhancing lesion, c/f abscess vs cyst Received a call from Mary Alberts APRN of [facility] regarding Wendy Sandoval who is a 57 y.o. 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 Watts) who presented to OSH yesterdaywith c/o sudden onset back pain with radiculopathy 2 days prior to presentation limiting ambulation; MRI was obtained today and shows a left sided T2 hyperintense, enhancing lesion in the paraspinal muscles adjacent to L5/S1 facet. Per report from AARTI Alberts, the patient's radiculopathy tracks down posterolateral R thigh but does not go beyond the knee. She is not having B/B changes or saddle anesthesia. On exam, she is sensorimotor intact without long tract signs. Afebrile. W 12, CRP 8, ESR 63. Can manage her symptoms with multimodal pain regimen, avoiding NSAIDs given CKD, and consider steroids, but in the setting of question of abscess would advise IR guided biopsy for diagnosis to guide further management steps. Would not warrant acute neurosurgical intervention, most of her spinal stenosis is degenerative and her exam is reassuring. documented in this encounter Plan of Treatment Upcoming Encounters Date Type Department Care Team (Late st Contact Info) Description 01/22/2024 10:30 AM EST Appointment Mammography/[place] [address] Ladi Mendosa MD [facility] HEMATOLOGY/[place] [address] 01/30/2024 11:30 AM EST Office Visit Dermatology at [address] [phone] Nilda Luis MD [facility] [address] [address] 02/15/2024 9:30 AM EST [place] [address] Joanna Watts MD [place], [place] [phone] documented as of this encounter Visit Diagnoses Not on filedocumented in this encounter Care Teams Routing Clerk Relationship Specialty Start Date End Date Trinh Coates MD [address] [facility] [place] [address] PCP - General 01/11/10 documented as of this encounter
--- OUTSIDE RECORDS SUMMARY | 2023-09-07 11:23 | XMS_ITS | Encounter Summary ---
Author Organization [facility] Address [facility] [address] Care Team Providers Care Federal Appellate Law Clerk Name Role Phone Trinh Coates MD Primary Care Provider [phone] Encounter Details Date Type Department Care Team (Latest Contact Info) Description 07/17/2023 11:50 AM EDT Laboratory Appointment Lab at [place] [address] [place] [phone] High risk medication use Social History Tobacco Use Types Packs/Day Years [...] as of this encounter Progress Notes * Nilda Luis MD - 07/17/2023 11:50 AM EDT Just a note to let you know I reviewed your recent labs, and it is OK to continue Kami. Nilda Okeefe documented in this encounter Plan of Treatment Upcoming Encounters Date Type Department Care Team (Late st Contact Info) Description 01/22/2024 10:30 AM EST Appointment Mammography/[place] [phone] Ladi Mendosa MD [facility] HEMATOLOGY/[place] [address] 01/30/2024 11:30 AM EST Office Visit Dermatology at [facility] [address] [place] [phone] [facility] [address] [address] 02/15/2024 9:30 AM EST [place] [phone] [place] [address] documented as of this encounter Procedures Procedure Name Priority Date/Time Associated Diagnosis Comments HC VENIPUNCTURE Routine 07/17/2023 12:07 PM EDT High risk medication use HEMOGRAM Routine 07/17/2023 12:07 PM EDT High risk medication use DIFFERENTIAL, AUTOMATED Routine 07/17/2023 12:07 PM EDT High risk medication use HC CBC,PLT & AUTO DIFF Routine 12:07 PM EDT High risk medication use COMPREHENSIVE METABOLIC PANEL (NON-FASTING) Routine 07/17/2023 12:07 PM EDT High risk medication use documented in this encounter Results * (ABNORMAL) Differential, Automated (07/17/2023 12:07 PM EDT) Neutrophils % 60.1 % [facility] Neutr Abs (ANC) 5.99 1.70 - 6.10 x10(3)/mc L [facility] Lymphocytes % 21.1 % [facility] Lymphocytes Abs 2.1 0.9 - 3.2 x10(3)/mc L [facility] Monocytes % 11.5 % [facility] Monocyte Abs 1.2(H) 0.3 - 0.9 x10(3)/[facility] Eosinophils % 5.4 % [facility] Eosinophils Abs 0.5(H) 0.0 - 0.4 x10(3)/[facility] Basophils % 1.6 % [facility] Basophils Abs 0.2(H) 0.0 - 0.1 x10(3)/[facility] Immature Gran % 0.30 % [facility] Comment: Immature granulocytes(IG's)percentage and absolute count will include metamyelocytes, myelocytes, and promyelocytes. Blood smears from CBCs yielding IG's will be scanned manually for concordance. If this scan disagrees with the automated IG or if promyelocytes are noted, a manual differential will be performed. Nova Gran Abs 0.03 0.00 - 0.04 x10(3)/[facility] Blood 07/17/2023 12:0 7 PM EDT 07/17/2023 4:05 PM EDT Narrative Resulting Agency Comment Spec In Lab Nilda Luis MD HEMATOLOGY ORDERABL ES [facility] [place] [address] * (ABNORMAL) Hemogram (07/17/2023 12:07 PM EDT) WBC 10.0(H) 4.0 - 9.5 x10(3)/[facility] RBC 3.91(L) 4.00 - 5.21 x10(6)/[facility] Hemoglobin 12.3 11.7 - 15.5 g/dL [facility] Hematocrit 39.0 35.7 - 45.8 % [facility] MCV 99.7(H) 82.6 - 94.4 fL [facility] MCH 31.5 27.1 - 32.0 pg [facility] MCHC 31.5(L) 31.7 - 35.0 g/dL [facility] Platelets 344 145 - 357 x10(3)/[facility] RDWSD 53.5(H) 37.0 - 46.0 fL [facility] RDWCV 14.4(H) 11.5 - 14.1 % [facility] MPV 9.8 7.6 - 12.9 fL [facility] nRBC % Auto 0.0 % [facility] nRBC Abs Auto 0.000 0.000 - 0.000 x10(3)/[facility] Blood 07/17/2023 12:0 7 PM EDT 07/17/2023 4:05 PM EDT Narrative Resulting Agency Comment Spec In Lab Nilda Luis MD HEMATOLOGY ORDERABL ES [facility] [place] [address] * (ABNORMAL) Comprehensive metabolic panel (non-fasting) (07/17/2023 12:07 PM EDT) Glucose Lvl 91 65 - 199 mg/dL [facility] Comment:Diabetes: >=200 mg/d L plus symptoms BUN 34(H) 8 - 18 mg/dL [facility] Creatinine 1.82(H) 0.70 - 1.20 mg/dL [facility] Sodium 143 135 - 145 mmol/L [facility] Potassium 4.7 3.5 - 5.0 mmol/L [facility] Comment: Please note: ??Patients with WBC >100,000 may have falsely elevated Potassium levels. ??For accurate Potassium quantification in these patients send serum separator tube (gold top) for subsequent determinations. ??Contact the Clinical Chemistry Laboratory if there are any questions. Chloride 107 98 - 107 mmol/L [facility] CO2 22 22 - 31 mmol/L [facility] Anion Gap 14 5 - 15 mmol/L [facility] Calcium 9.5 8.5 - 10.5 mg/dL [facility] Total Protein 7.1 6.1 - 8.0 g/dL [facility] Albumin 4.5 3.2 - 5.2 g/dL [facility] AST 15 0 - 30 unit/L [facility] ALT 16 0 - 30 unit/L [facility] Alk Phos 111(H) 35 - 105 unit/L [facility] Total Bilirubin 0.5 0.2 - 1.3 mg/dL [facility] Estimated GFR 31(L) >=60 mL/min/1. 73 m?? [facility] Comment: This patient's estimated [...] Lab Nilda Luis MD CHEMISTRY ORDERABLE S [facility] [place] [address] * QuantiFERON-TB Gold (07/17/2023 12:07 PM EDT) QFT Nil 0.029 IU/mL [facility] QFT TB Ag1-Nil -0.003 IU/mL [facility] QFT TB Ag2-Nil 0.006 IU/mL [facility] QFT Mitogen-Nil 9.971 IU/mL [facility] Quantiferon TB Negative Negative [facility] Quantiferon TB Interp M. [...] affect immune function, or other immunological factors. [facility] Blood 07/17/2023 12:0 7 PM EDT 07/18/2023 11:35 AM EDT Narrative Resulting Agency Comment Spec In Lab Nilda Luis MD CHEMISTRY ORDERABLE S [facility] [place] [address] documented in this encounter Visit Diagnoses Diagnosis High risk medication use Encounter for long-term (current) use of other medications documented in this encounter Care Teams Federal Appellate Law Clerk Relationship Specialty Start Date End Date Trinh Coates MD [address] [place] [address] PCP - General 01/11/10 documented as of this encounter
--- OUTSIDE RECORDS SUMMARY | 2023-09-07 11:24 | XMS_ITS | Encounter Summary ---
[place] [address] Care Team Providers Care Drafter Automotive Design Layout Name Role Phone Trinh Coates MD Primary Care Provider [phone] Encounter Details Date Type Department Care Team (Late st Contact Info) Description 11/29/2022 [place] [address] Rachna Guerrero RN Social History Tobacco Use Types Packs/Day [...] encounter Miscellaneous Notes * Telephone Encounter - Rachna Guerrero RN - 11/29/2022 1:50 PM EDT Attempted phone call again. Left a VM to call my office when Xiomara has a chance to discuss. * Telephone Encounter - Melonie Lucas - 11/29/2022 1:44 PM EDT Xiomara, from [facility], is returning call. Please call to advise. * Telephone Encounter - Rachna Guerrero RN - 11/29/2022 12:38 PM EDT Copied from [facility] #[id number]. Topic: Specialty Dept CRMs - Generic Call >> Nov 29, 2022 10:49 AM Lindsey Gonzalez wrote: Specialist: Joanna Watts MD Relationship (if other than patient-full name): Xiomara Reason for Call: surgery instructions needed for patient's upcoming surgery, looking for some guidance if patient is a candidate for this surgery, left knee surgery ACL reconstruction is what is needed, also have medication questions as well. Please call to assist. Caller: Xiomara Reason for call: see above Attempted to call ortho office back to discuss questions. Left VM to call back when they have a chance, phone number provided. Wendy is needing a knee surgery, scheduled for 02/08/23. Needing clearance to hold ASA 5 days, okay to continue if not okay to hold but will be at risk for more bruising. Plan would be for her to be off plavix if all looks good with angiogram on 02/02/23. Will check with provider on this but explained that we won't have any official info until the angiogram is complete. Response from Araceli Levi regarding patient below. She would be able to be off ASA if necessary, but you are correct that there is an outside chance that she will continue on the plavix if her stent isn't fully integrated (probably less than 10% chance of this). If it wouldn't greatly increase her risk for knee surgery, staying on ASA 81mg would be great, but ok if the risk is too high. documented in this encounter Plan of Treatment Upcoming Encounters Date Type Department Care Team (Late st Contact Info) Description 01/22/2024 10:30 AM EST Appointment Mammography/[place] [address] [facility] HEMATOLOGY/[place] [address] 01/30/2024 11:30 AM EST Office Visit Dermatology at [facility] [address] [place] [address] [facility] [address] AGUIL[address] [address] 02/15/2024 9:30 AM [place] [phone] [place] [address] documented as of this encounter Visit Diagnoses Not on filedocumented in this encounter Care Teams Drafter Automotive Design Layout Relationship Specialty Start Date End Date Trinh Coates MD [facility] [address] [place] [address] PCP - General 01/11/10 documented as of this encounter
--- OUTSIDE RECORDS SUMMARY | 2023-09-07 11:24 | XMS_ITS | Encounter Summary ---
Author Organization [facility] [place] [address] Care Team Providers Care Supervisor Felling Bucking Name Role Phone Trinh Coates MD Primary Care Provider [phone] Reason for Visit * Reason Comments Specialty Pharmacy Review Encounter Details Date Type Department Care Team (Late st Contact Info) Description 01/30/2023 Specialty [place] [phone] Mike Cavazos, [facility] Social History Tobacco Use Types Packs/Day Years [...] as of this encounter Progress Notes * Mike Cavazos - 01/30/2023 11:59 PM EST The [facility] has completed a benefits investigation for Wendy Sandoval to review their eligibility to fill at [facility]. Per patient's medication list they are prescribed STELARA 45 MG/0.5 ML and the medication is not able to be filled at the [facility]. At this time insurance mandates this medication must be filled through [facility]. documented in this encounter Plan of Treatment Upcoming Encounters Date Type Department Care Team (Late st Contact Info) Description 01/22/2024 10:30 AM EST Appointment Mammography/[place] [address] Ladi Mendosa MD [facility] HEMATOLOGY/[place] [address] 01/30/2024 11:30 AM EST Office Visit Dermatology at [facility] [address] [place] [phone] Nilda Luis MD [facility] [place] [address] 02/15/2024 9:30 AM EST Appointment [place] [address] [place] [address] documented as of this encounter Visit Diagnoses Not on filedocumented in this encounter Care Teams Supervisor Felling Bucking Relationship Specialty Start Date End Date Trinh Coates MD [facility] [address] [place] [address] PCP - General 01/11/10 documented as of this encounter
--- OUTSIDE RECORDS SUMMARY | 2023-09-07 11:24 | XMS_ITS | Encounter Summary ---
Author Organization [facility] Address [facility] [place] [address] Care Team Providers Care Service Restorer Emergency Name Role Phone Trinh Coates MD Primary Care Provider [phone] Encounter Details Date Type Department Care Team (Latest Contact Info) Description 11/08/2022 10:15 AM EDT Laboratory Appointment Lab [address] [place] [phone] 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 [...] 01/22/2024 10:30 AM EST Appointment Mammography/[place] [phone] Ladi Mendosa MD [facility] HEMATOLOGY/[place] [address] 01/30/2024 11:30 AM EST Office Visit Dermatology at [facility] [address] [place] [phone] Nilda Luis MD [facility] [address] [place] [address] 02/15/2024 9:30 AM EST Appointment [place] [phone] [place] [address] documented as of this encounter Procedures Procedure Name Priority Date/Time Associated Diagnosis Comments HC VENIPUNCTURE STAT 11/08/2022 10:02 AM EDT 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 documented in this encounter Results * (ABNORMAL) Creatinine (11/08/2022 10:02 AM EDT) Creatinine 1.87(H) 0.70 - 1.20 mg/dL [facility] Estimated GFR 31(L) >=60 mL/min/1. 73 m?? [facility] [...] and symptoms in addition to eGFR. 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
--- OUTSIDE RECORDS SUMMARY | 2023-09-07 11:24 | XMS_ITS | Encounter Summary ---
Author Organization [facility] [place] [address] Care Team Providers Care Database Dba Name Role Phone Trinh Coates MD Primary Care Provider [phone] Encounter Details Date Type Department Care Team (Late st Contact Info) Description 01/26/2023 Notes [place] [address] [place] [address] Social History Tobacco Use Types Packs/Day Years [...] Progress Notes * Araceli Levi APRN - 01/26/2023 5:14 PM EST NEURORADIOLOGY BRIEF PRE-PROCEDURE NOTE Name: Wendy Sandoval Date of : 1965 Referring Physician: Araceli Levi APRN Indication: AXEL aneurysm stent placement Planned Procedure: diagnostic cerebral angiogram, Dr. Watts Chief Complaint/HPI: Wendy Sandoval is a 57 y.o. female with history notable for CKD, followed by nephrology. AXEL aneurysm stent placed 07/24/22; due to followup angiogram to ensure stent endothelialization. Allergies: Allergies Allergen Reactions Penicillins Thrush PAT Penicillin Allergy Risk Assessment 07/20/2022: Moderate Risk Reaction. Patient referred to allergy clinic for pre-op testing. Other Reaction(s): Thrush Sertraline PSORIASIS FLARE Other Reaction(s): Skin Rash Medications: Current Outpatient Medications: exemestane (Aromasin) 25 mg tablet, Take 1 [...] mouth daily., Disp: 30 tablet, Rfl: 3 clopidogreL (Plavix) 75 mg tablet, Take 1 tablet by mouth daily., Disp: 90 tablet, Rfl: 3 gabapentin (Neurontin) 300 mg capsule, One in am, two at night, Disp: , Rfl: MULTI-VITAMIN ORAL, Take 1 tablet by mouth daily., Disp: , Rfl: Stelara 45 mg/0.5 mL subcutaneous injection, MAINTENANCE: INJECT 1 SYRINGE SUBCUTANEOUSLY EVERY 12 WEEKS. REFRIGERATE. DO NOT FREEZE, Disp: 0.5 mL, Rfl: 2 calcium carbonate (CALCIUM 600 ORAL), Take 600 [...] mg by mouth daily., Disp: , Rfl: No current facility-administered medications for this visit. Facility-Administered Medications Ordered in Other Visits: sodium chloride 0.9 % (flush) (BD PosiFlush Normal Saline 0.9) flush 5 mL, 5 mL, Intravenous, BID, Levi, Araceli L, BRIDGE WELDER sodium chloride 0.9 % (flush) (BD PosiFlush Normal Saline 0.9) flush 5-20 mL, 5- 20 mL, Intravenous,Q1 Min PRN, Levi, Araceli L, BRIDGE WELDER lidocaine (Xylocaine) 1% (10 mg/mL) injection 3 mg, 0.3 mL, Subcutaneous, Once PRN, Levi, Araceli L, BRIDGE WELDER sodium chloride 0.9 % (flush) (BD PosiFlush Normal Saline 0.9) flush 10 mL, 10 mL, Intravenous, Daily PRN, Levi, Araceli L, BRIDGE WELDER fentaNYL (pf) (50 mcg/mL) multi-dose injection 25-50 mcg, 25-50 mcg, Intravenous, Q3 Min PRN, Levi, Araceli L, BRIDGE WELDER flumazeniL (Romazicon) (0.1 mg/mL) injection 0.2 mg, 0.2 mg, Intravenous, Q2 Min PRN, Levi, AmberL, BRIDGE WELDER naloxone (NARCAN) injection 1 mg/mL 0.1 mg, 0.1 mg, Intravenous, Q2 Min PRN, Levi, Araceli L, BRIDGE WELDER midazolam (pf) (Versed) (1 mg/mL) multi-dose injection 0.5-1 mg, 0.5-1 mg, Intravenous, Q3 Min PRN,Levi, Araceli L, BRIDGE WELDER ondansetron (pf) (Zofran) (2 mg/mL) injection 4 mg, 4 mg, Intravenous, Once PRN, Levi, Araceli L, BRIDGE WELDER sodium chloride 0.9% infusion, 100 mL/hr, Intravenous, Continuous, Levi, Araceli L, BRIDGE WELDER sodium chloride 0.9 % (flush) (BD PosiFlush Normal Saline 0.9) flush 5 mL, 5 mL, Intravenous, BID, Joanna Watts MD sodium chloride 0.9 % (flush) (BD PosiFlush Normal Saline 0.9) flush 5-20 mL, 5- 20 mL, Intravenous,Q1 Min PRN, Joanna Watts MD lidocaine (Xylocaine) 1% (10 mg/mL) injection 3 mg, 0.3 mL, Subcutaneous, Once PRN, Joanna Watts MD sodium chloride 0.9 % (flush) (BD PosiFlush Normal Saline 0.9) flush 10 mL, 10 mL, Intravenous, Daily PRN, Joanna Watts MD fentaNYL (pf) (50 mcg/mL) multi-dose injection 25-50 mcg, 25-50 mcg, Intravenous, Q3 Min PRN, Joanna Watts MD flumazeniL (Romazicon) (0.1 mg/mL) injection 0.2 mg, 0.2 mg, Intravenous, Q2 Min PRN, Joanna Watts MD naloxone (NARCAN) injection 1 mg/mL 0.1 mg, 0.1 mg, Intravenous, Q2 Min PRN, Joanna Watts MD midazolam (pf) (Versed) (1 mg/mL) multi-dose injection 0.5-1 mg, 0.5-1 mg, Intravenous, Q3 Min PRN,Joanna Watts MD Labs: Creatinine Date Value Ref Range Status 01/24/2023 1.91 (H) 0.70 - 1.20 mg/dL Final Imaging: in edh Assessment: 57 y.o. female with the above history. No contraindications to procedure. Will follow renal protocol for fluids abdiaziz-procedure, as follows: NaCl 0.9% 250ml/hr x 1 hour prior to procedure. NaCl 0.9% 100ml/hr during procedure. NaCl 0.9% 250ml/hr x 2 hours post procedure. Labs to be performed day of procedure: creatinine Medications to discontinue: none Position: supine Sedation: moderate Additional medications for procedure: Lidocaine 1%, radial access Consent: day of procedure Araceli Levi APRN 01/26/2023 5:15 PM documented in this encounter Plan of Treatment Upcoming Encounters Date Type Department Care Team (Late st Contact Info) Description 01/22/2024 10:30 AM EST Appointment Mammography/DXA at [place] [phone] Ladi Mendosa MD [facility] HEMATOLOGY/[place] [address] 01/30/2024 11:30 AM EST Office Visit Dermatology at [place] [address] [place] [phone] Nilda Luis MD [facility] [address] [place] [address] 02/15/2024 9:30 AM EST Appointment [place] [address] [place] [address] documented as of this encounter Visit Diagnoses Not on filedocumented in this encounter Care Teams Database Dba Relationship Specialty Start Date End Date Trinh Coates MD [facility] [address] [place] [address] PCP - General 01/11/10 documented as of this encounter
--- OUTSIDE RECORDS SUMMARY | 2023-09-07 11:24 | XMS_ITS | Encounter Summary ---
Author Organization [facility] Address [facility] [place] [address] Care Team Providers Care Owner Name Role Phone Trinh Coates MD Primary Care Provider [phone] Encounter Details Date Type Department Care Team (Late st Contact Info) Description 11/08/2022 10:25 AM EDT Laboratory Appointment Lab [address] [place] [phone] Social History Tobacco Use Types Packs/Day Years [...] 01/22/2024 10:30 AM EST Appointment Mammography[place] [address] Ladi Mendosa MD [facility] HEMATOLOGY/[place] [address] 01/30/2024 11:30 AM EST Office Visit Dermatology at [facility] [address] [place] [address] Nilda Luis MD [facility] [address] [place] [address] 02/15/2024 9:30 AM EST [place] [phone] [place] [address] documented as of this encounter Procedures Procedure Name Priority Date/Time Associated Diagnosis Comments TSH Routine 11/08/2022 10:02 AM EDT MAGNESIUM Routine 11/08/2022 10:02 AM EDT HEMOGLOBIN A1C Routine 11/08/2022 10:02 AM EDT BASIC METABOLIC PANEL (NON-FASTING) Routine 11/08/2022 10:02 AM EDT documented in this encounter Results * (ABNORMAL) Basic Metabolic Panel (non-fasting) (11/08/2022 10:02 AM EDT) Glucose Lvl 107 65 - 199 mg/dL [facility] Comment:Diabetes: >=200 mg/d L plus symptoms BUN 41(H) 8 - 18 mg/dL [facility] Creatinine 1.87(H) 0.70 - 1.20 mg/dL [facility] Sodium 138 135 - 145 mmol/L [facility] Potassium 4.9 3.5 - 5.0 mmol/L [facility] Comment: Please note: ??Patients with WBC >100,000 may have falsely elevated Potassium levels. ??For accurate Potassium quantification in these patients send serum separator tube (gold top) for subsequent determinations. ??Contact the Clinical Chemistry Laboratory if there are any questions. Chloride 102 98 - 107 mmol/L [facility] CO2 23 22 - 31 mmol/L [facility] Anion Gap 13 5 - 15 mmol/L [facility] Calcium 10.2 8.5 - 10.5 mg/dL [facility] Estimated GFR 31(L) >=60 mL/min/1. 73 m?? [facility] Comment: This patient's estimated GFR [...] and symptoms in addition to eGFR. Blood Venous Draw / Unknown 11/08/2022 10:02 AM EDT 11/08/2022 10:44 AM EDT Narrative Resulting Agency Comment Spec In Lab Trinh Coates MD CHEMISTRY ORDERABLES [facility] [place] [address] * (ABNORMAL) Hemoglobin A1c (11/08/2022 10:02 AM EDT) Hemoglobin A1C 5.7(H) 4.3 - 5.6 % [facility] Comment: Reference Range: 4.3 - 5.6% 5.7 - 6.4% - Increased Risk of Developing Diabetes Mellitus >= 6.5% - Consistent with diagnosis of Diabetes Mellitus In the absence of hyperglycemia (i.e. plasma glucose > 200 mg/dL) or classic symptoms of hyperglycemia a repeat measurement of HbA1c should be performed on a separate sample to confirm the diagnosis. Diagnosis and Classification of Diabetes Mellitus, Diabetes Care 2013; 36: Suppl. 1, Y97-98 Est Avg Gluc 117 mg/dL [facility] Comment: eAG equivalents for HbA1c percentages: HbA1c(%) ?eAG(mg/dL) 6.0 ?126 6.5 ?140 7.0 ?154 7.5 ?169 8.0 ?183 8.5 ?197 9.0 ?212 9.5 ?226 10.0 ? 240 Limitations: The eAG calculation has not been validated on women, individuals below 18 years old and above 70 years old, and individuals with hemoglobinopathies. Additional resources are available on the ADA website. Prosper JERONIMO, Hank J, Yunior R, et al. ??Translating the A1C assay into estimated average glucose values. ??Diabetes Care 2008:31(8):7867-4525. Blood Venous Draw / Unknown 11/08/2022 10:02 AM EDT 11/08/2022 10:41 AM EDT Narrative Resulting Agency Comment Spec In Lab Trinh Coates MD CHEMISTRY ORDERABLES Performing Organization Address [facility] de Phone Number [facility] [place] [address] * Magnesium (11/08/2022 10:02 AM EDT) Magnesium 0.89 0.69 - 1.07 mmol/L [facility] Blood Venous Draw / Unknown 11/08/2022 10:02 AM EDT 11/08/2022 10:44 AM EDT Narrative Resulting Agency Comment Spec In Lab Trinh Coates MD CHEMISTRY ORDERABLES Performing Organization Address [facility] de Phone Number [facility] [place] [address] * (ABNORMAL) TSH (11/08/2022 10:02 AM EDT) TSH 4.55(H) 0.27 - 4.20 mcIU/mL [facility] Comment: Reference Interval (mcIU/mL): Females: ??First Trimester: 0.23-3.88 ??Second Trimester: 0.22-3.90 ??Third Trimester: 0.44-4.66 Blood Venous Draw / Unknown 11/08/2022 10:02 AM EDT 11/08/2022 10:44 AM EDT Narrative Resulting Agency Comment Spec In Lab Trinh Coates MD CHEMISTRY ORDERABLES [facility] [place] [address] documented in this encounter Visit Diagnoses Not on filedocumented in this encounter Care Teams Owner Relationship Specialty Start Date End Date Trinh Coates MD [address] [place] [address] [address] [place] [address] PCP - General 01/11/10 documented as of this encounter
--- OUTSIDE RECORDS SUMMARY | 2023-09-07 11:24 | XMS_ITS | Encounter Summary ---
Author Organization [facility] [place] [address] Care Team Providers Care Fleece Tier Name Role Phone Trinh Coates MD Primary Care Provider [phone] Reason for Visit * Reason Onset Date Comments Appointment 08/08/2022 Encounter Details Date Type Department Care Team (Late st Contact Info) Description 08/08/2022 Telephone [place] [address] Rachna Guerrero, RN Appointment Social History Tobacco Use Types Packs/Day [...] encounter Miscellaneous Notes * Telephone Encounter - Ailyn Helms - 08/09/2022 1:40 PM EDT PSC scheduled 3 mo HCK on 11/08 at [address] Joanna Watts Closing encounter * Telephone Encounter - Jazmyn Bowen - 08/08/2022 9:14 AM EDT Images from the original note were not included. LM for pt regarding scheduling 2 wk Telehealth appt with Araceli Levi for this Sunday, 08/11 at 1:00 Sent a [employer] message to pt with appt details as well. Ask CTA Safety ?'s if patient calls back and schedule 3 mo f/u with Dr. Watts and CTA PSC Scheduling Instructions Provider: Joanna Watts MD Visit Type: HCK Appt Note: 3 mo HCK, s/p stent placement of right ICA aneurysm 07/24/22-AMM CTA prior Imaging appt needed?: CTA PSC to ask patient Screening Questions? Yes PSC to coordinate same day appt with Radiology? Yes Additional Info Needed: Schedule on/around 10/24/22 ~~~~~~~~~~~~~~~~~~~~~~~~~~~~~~~~~~~~~~~~~~~~~~~ Rachna Guerrero RN P [facility] Project Manager Just looking through patients chart and they will be due this week for f/u in clinic with an ASHTYN. Had a procedure with Dr. Watts. Likely needs to see Araceli and f/u with Dr. Watts in 3mos with CTA head/neck prior. Thanks! Michelle documented in this encounter Plan of Treatment Upcoming Encounters Date Type Department Care Team (Late st Contact Info) Description 01/22/2024 10:30 AM EST Appointment Mammography/[place] [address] Ladi Mendosa MD [facility] HEMATOLOGY/[place] [address] 01/30/2024 11:30 AM EST Office Visit Dermatology at [facility] [address] [place] [phone] Nilda Luis MD [facility] [address] [address] 02/15/2024 9:30 AM EST Appointment [place] [address] [place] [address] documented as of this encounter Visit Diagnoses Not on filedocumented in this encounter Care Teams Fleece Tier Relationship Specialty Start Date End Date Trinh Coates MD [facility] [address] [facility] [address] [place] [address] PCP - General 01/11/10 documented as of this encounter
--- OUTSIDE RECORDS SUMMARY | 2023-09-07 11:24 | XMS_ITS | Encounter Summary ---
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 [...] 01/22/2024 10:30 AM EST Appointment Mammography[place] [phone] Ladi Mendosa MD [facility] DR HEMATOLOGY/[place] [address] 01/30/2024 11:30 AM EST Office Visit Dermatology at [facility] [address] [place] [phone] Nilda Luis MD [facility] [address] [place] [address] 02/15/2024 9:30 AM EST [place] [phone] [place] [address] documented as of this encounter Procedures Procedure Name Priority Date/Time Associated Diagnosis Comments HC PLATELET COUNT STAT 01/24/2023 12: 12 PM EST 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 BASIC METABOLIC PANEL (NON-FASTING) STAT 01/24/2023 12:12 PM EST 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 documented in this encounter Results * (ABNORMAL) Basic Metabolic Panel (non-fasting) (01/24/2023 12:12 PM EST) Glucose Lvl 76 65 - 199 mg/dL [facility] Comment:Diabetes: >=200 mg/d L plus symptoms BUN 35(H) 8 - 18 mg/dL [facility] Creatinine 1.91(H) 0.70 - 1.20 mg/dL [facility] Sodium 143 135 - 145 mmol/L [facility] Potassium 4.5 3.5 - 5.0 mmol/L [facility] Comment: Please note: ??Patients with WBC >100,000 may have falsely elevated Potassium levels. ??For accurate Potassium quantification in these patients send serum separator tube (gold top) for subsequent determinations. ??Contact the Clinical Chemistry Laboratory if there are any questions. Chloride 106 98 - 107 mmol/L [facility] CO2 24 22 - 31 mmol/L [facility] Anion Gap 13 5 - 15 mmol/L [facility] Calcium 10.2 8.5 - 10.5 mg/dL [facility] Estimated GFR 30(L) >=60 mL/min/1. 73 m?? [facility] Comment: This patient's estimated GFR [...] and symptoms in addition to eGFR. Blood 01/24/2023 12:1 2 PM EST 01/24/2023 12:16 PM EST Narrative Resulting Agency Comment Spec In Lab Araceli Levi APRN CHEMISTRY ORDERABLES [facility] [place] [place] [address] * (ABNORMAL) Platelet count (01/24/2023 12:12 PM EST) Platelets 375(H) 145 - 357 x10(3)/mc L [facility] Plat Immature % 0.8 0.0 - 7.4 % [facility] Comment: Limitation of the Immature Platelet Fraction (IPF)-May be less reliable when the platelet count is less than 76n791/uL due to statistical imprecision. The IPF value provides an assessment of the Bone Marrow production status. ??It is useful in differentiating Thrombocytopenia caused by platelet destruction/consumption versus decreased production. It also helps to determine the imminent release of platelets and can be therefore a helpful parameter in Chemotherapy and Bone marrow transplant patients. ELEVATED IPF value: ?? When the bone marrow is in a state of over production such as when increased destruction and consumption are the underlying issue. ?? When the marrow is recovering post chemotherapy or bone marrow transplant. LOW to NORMAL IPF value: ?? When the bone marrow in not responding and is in a decreased state of production. References: [employer] The Clinical Value of the Immature Platelet Fraction (IPF) in Cell Recovery Document Number 10-1143 07/2010 [employer] 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
--- OUTSIDE RECORDS SUMMARY | 2023-09-07 11:24 | XMS_ITS | Encounter Summary ---
Author Organization [facility] Address [facility] [place] [address] Care Team Providers Care Reinforcing Steel Worker Name Role Phone Trinh Coates MD Primary Care Provider [phone] Encounter Details Date Type Department Care Team (Latest Contact Info) Description 09/26/2022 Travel Social History Tobacco Use Types Packs/Day [...] 01/22/2024 10:30 AM EST Appointment Mammography/[place] [address] Ladi Mendosa MD [facility] HEMATOLOGY/[place] [address] 01/30/2024 11:30 AM EST Office Visit Dermatology at [facility] [address] [place] [phone] Nilda Luis MD [facility] [address] [place] [address] 02/15/2024 9:30 AM EST [place] [address] [place] [address] documented as of this encounter Visit Diagnoses Not on filedocumented in this encounter Care Teams Reinforcing Steel Worker Relationship Specialty Start Date End Date Trinh Coates MD [facility] [address] [facility] [address] [place] [address] PCP - General 01/11/10 documented as of this encounter
--- OUTSIDE RECORDS SUMMARY | 2023-09-07 11:24 | XMS_ITS | Encounter Summary ---
Author Organization [facility] Address [facility] [place] [address] Care Team Providers Care Fringing Machine Operator Name Role Phone Trinh Coates MD Primary Care Provider [phone] Reason for Visit * Reason Comments Medication Refill Encounter Details Date Type Department Care Team (Late st Contact Info) Description 10/04/2022 Refill Dermatology at [facility] [address] [place] [address] Nilda Luis MD [facility] [address] [address] Actinic cheilitis Social History Tobacco Use Types Packs/Day Years [...] 01/22/2024 10:30 AM EST Appointment Mammography[place] [address] Ladi Mendosa MD [facility] HEMATOLOGY/[place] [address] 01/30/2024 11:30 AM EST Office Visit Dermatology at [facility] [address] [place] [address] Nilda Luis MD [facility] [address] [address] 02/15/2024 9:30 AM EST [place] [phone] [place] [address] documented as of this encounter Visit Diagnoses Diagnosis Actinic cheilitis Acute dermatitis due to solar radiation documented in this encounter Care Teams Fringing Machine Operator Relationship Specialty Start Date End Date Trinh Coates MD [address] [place] [address] PCP - General 01/11/10 documented as of this encounter
--- OUTSIDE RECORDS SUMMARY | 2023-09-07 11:24 | XMS_ITS | Encounter Summary ---
Author [place] [address] Care Team Providers Care Stud Sheep Farmer Name Role Phone Trinh Coates MD Primary Care Provider [phone] Reason for Visit * Reason Comments Prior Authorization Stelara 45mg/0.5mL S OSY Encounter Details Date Type Department Care Team (Late st Contact Info) Description 09/07/2022 Specialty Pharmacy [place] [address] Jose Cullen, BUILDING MAINTENANCE MECHANIC Social History Tobacco Use Types Packs/Day Years [...] as of this encounter Progress Notes * Jose Cullen - 09/07/2022 11:19 AM EDT [facility], Medication Prior Authorization Submission Patient: Wendy Sandoval Patient : 1965 Patient Address: [address] [place] [facility] [address] (home) Medication Name: STELARA 45 MG/0.5 ML SUBCUTANEOUS SYRINGE Medication ID: Subscriber Insurance: [employer] (ADV) Subscriber Insurance Comment: Fax: Physician: NILDA LUIS Physician Comment: Sent Via: Fax La: Ref/Case/PA#: Medication Strength Frequency Requested: Stelara 45mg/0.5mL SOSY. Inject the contents of one syringe (45mg) SQ every 12 weeks Qty/Day Supply: New Start: Renewal Diagnosis & ICD-10 Code: Psoriasis L40.9 Patient Notified: No Submission Notes: None Jose Cullen 09/07/22 11:21 AM * Jose Cullen - 09/07/2022 11:19 AM EDT [facility], Prior Authorization Approval Medication Name: STELARA 45 MG/0.5 ML SUBCUTANEOUS SYRINGE Medication ID: Approval Dates: 09/07/2022 to 09/15/2023 Insurance requirements/notes: - For Reauth only, currently filling with [facility] Other Notes: None Case/Reference #: N/A Approval notification Received via: Fax Copay: Copay assistance: Copay Card Copay Notes: Insurance mandated Pharmacy: [facility] Fillable at [facility]: No Patient Notified: No Pharmacy staff will be reaching out to the patient to inform them of [facility]. If applicable, a pharmacist will speak with the patient to offer our specialty pharmacy services and to arrange delivery of their medication. Jose Cullen 09/07/22 1:12 PM documented in this encounter Plan of Treatment Upcoming Encounters Date Type Department Care Team (Late st Contact Info) Description 01/22/2024 10:30 AM EST Appointment Mammography/[place] [address] Ladi Mendosa MD [facility] HEMATOLOGY/[place] [address] 01/30/2024 11:30 AM EST Office Visit Dermatology at [place] [address] [place] [phone] Nilda Luis MD [facility] [address] LID[address] AMEZCUA[place] [address] 02/15/2024 9:30 AM EST Appointment Radiology at [place] [phone] [place] [address] documented as of this encounter Visit Diagnoses Not on filedocumented in this encounter Care Teams Stud Sheep Farmer Relationship Specialty Start Date End Date Trinh Coates MD [facility] [address] [place] [address] PCP - General 01/11/10 documented as of this encounter
--- OUTSIDE RECORDS SUMMARY | 2023-09-07 11:24 | XMS_ITS | Encounter Summary ---
Author Organization [facility] Address [facility] [place] [address] Care Team Providers Care Accounting Manager Name Role Phone Trinh Coates MD Primary Care Provider [phone] Encounter Details Date Type Department Care Team (Latest Contact Info) Description 11/10/2022 Travel Social History Tobacco Use Types Packs/Day [...] 01/22/2024 10:30 AM EST Appointment Mammography[place] [address] Ladi Mendosa MD [facility] HEMATOLOGY/[place] [address] 01/30/2024 11:30 AM EST Office Visit Dermatology at [facility] [address] [place] [phone] Nilda Luis MD [facility] [address] LID[address] [place] [address] 02/15/2024 9:30 AM EST [place] [address] [place] [address] documented as of this encounter Visit Diagnoses Not on filedocumented in this encounter Care Teams Accounting Manager Relationship Specialty Start Date End Date Trinh Coates MD [facility] [address] [place] [address] PCP - General 01/11/10 documented as of this encounter
--- OUTSIDE RECORDS SUMMARY | 2023-09-07 11:24 | XMS_ITS | Encounter Summary ---
Author Organization [facility] Address [facility] [place] [address] Care Team Providers Care Power Digger Operator Name Role Phone Trinh Coates MD Primary Care Provider [phone] Encounter Details Date Type Department Care Team (Latest Contact Info) Description 01/02/2023 Travel Social History Tobacco Use Types Packs/Day [...] 01/22/2024 10:30 AM EST Appointment Mammography[place] [address] Ladi Mendosa MD [facility] HEMATOLOGY/[place] [address] 01/30/2024 11:30 AM EST Office Visit Dermatology at [facility] [address] [place] [phone] Nilda Luis MD [facility] [address] [place] [address] 02/15/2024 9:30 AM [place] [address] [place] [address] documented as of this encounter Visit Diagnoses Not on filedocumented in this encounter Care Teams Power Digger Operator Relationship Specialty Start Date End Date Trinh Coates MD [facility] EVNA [address] [facility] [address] [place] [address] PCP - General 01/11/10 documented as of this encounter
--- OUTSIDE RECORDS SUMMARY | 2023-09-07 11:24 | XMS_ITS | Encounter Summary ---
Author Organization [facility] Address [facility] [place] [address] Care Team Providers Care Featheredge Machine Operator Name Role Phone Trinh Coates MD Primary Care Provider [phone] Encounter Details Date Type Department Care Team (Latest Contact Info) Description 08/03/2022 Travel Social History Tobacco Use Types Packs/Day [...] 01/22/2024 10:30 AM EST Appointment Mammography/[place] [address] Ladi Mendosa MD [facility] HEMATOLOGY/[place] [address] 01/30/2024 11:30 AM EST Office Visit Dermatology at [facility] [address] [place] [phone] Nilda Luis MD [facility] [address] [address] 02/15/2024 9:30 AM EST Appointment [place] [address] [place] [address] documented as of this encounter Visit Diagnoses Not on filedocumented in this encounter Care Teams Featheredge Machine Operator Relationship Specialty Start Date End Date Trinh Coates MD [facility] [address] [facility] [address] [place] [address] PCP - General 01/11/10 documented as of this encounter
--- OUTSIDE RECORDS SUMMARY | 2023-09-07 11:24 | XMS_ITS | Encounter Summary ---
Author Organization [facility] Address [facility] [address] [facility] [place] [address] Care Team Providers Care Prop Worker Name Role Phone Trinh Coates MD Primary Care Provider [phone] Encounter Details Date Type Department Care Team (Late st Contact Info) Description 08/04/2022 Telephone Dermatology at [facility] [address] [place] [address] Nilda Luis MD [facility] [address] [place] [address] Social History Tobacco Use Types Packs/Day Years [...] encounter Miscellaneous Notes * Telephone Encounter - Pat Durbin - 08/04/2022 9:37 AM EDT I returned Wendy Lanier Lori call and was unable to reach them at the call back number provided. I left my number to return my call [phone] (Dr. Flores / Dr. Luis) or to send a message via My . documented in this encounter Plan of Treatment Upcoming Encounters Date Type Department Care Team (Late st Contact Info) Description 01/22/2024 10:30 AM EST Appointment Mammography[place] [phone] Ladi Mendosa MD [facility] HEMATOLOGY/[place] [address] 01/30/2024 11:30 AM EST Office Visit Dermatology at [address] [place] [phone] Nilda Luis MD [facility] [place] [address] 02/15/2024 9:30 AM [place] [address] [place] [address] documented as of this encounter Visit Diagnoses Not on filedocumented in this encounter Care Teams Prop Worker Relationship Specialty Start Date End Date Trinh Coates MD [address] [place] [address] PCP - General 01/11/10 documented as of this encounter
--- OUTSIDE RECORDS SUMMARY | 2023-09-07 11:24 | XMS_ITS | Encounter Summary ---
Author Organization [facility] [place] [address] Care Team Providers Care Information Director Name Role Phone Trinh Coates MD Primary Care Provider [phone] Reason for Visit * Diagnostic Test (Routine) - Closed Specialty Diagnoses / Procedures Referred By Diamante marin Referred To Contact Radiology Diagnoses Right internal carotid artery aneurysm Procedures IR Arteriogram Cerebral [place] [address] [place] [address] Referral ID Status Reason Start Date Expiration Date V isits Requested Visits Authorized [id number] Closed Specialty Service Requested 09/20/2022 03/23/2024 1 1 Encounter Details Date Type Department Care Team (Latest Contact Info) Description 01/31/2023 12:36 PM EST - 01/31/2023 8:43 PM EST Hospital En[place] [address] Araceli Levi [place] [address] 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; Pre-op testing; Hypokalemia Discharge Disposition: Home Social History Tobacco Use [...] Sign Reading Time Taken Comments Blood Pressure 151/89 01/31/2023 8:40 PM EST Pulse 62 01/31/2023 3:55 PM EST Temperature 36.7 ??C (98 ??F) 01/31/2023 4:08 PM EST Respiratory Rate 16 01/31/2023 6:00 PM EST Oxygen Saturation 97% 01/31/2023 8:40 PM EST Inhaled Oxygen Concentration - - Weight - - Height - - Body Mass Index - - documented in this encounter Discharge Instructions * Discharge Instructions* Susana Posadas RN - 01/31/2023 3:35 PM EST [facility] Interventional Radiology Post Angiography Instructions Procedure: Arteriogram Cerebral Puncture Site: Right groin 01/31/2023 Physician: MD Mac 1. At home we advise you to rest quietly in bed or on the couch with your hip straight until the next morning. Until the next morning you may get up only to go to the bathroom. 2. Resume your previous diet. Drink 6-8 ounces of fluid per hour for the next 8 hours. Avoid alcoholic or caffeinated beverages for 24 hours. 3. Avoid strenuous activity for the next 48 hours, particularly in the next 24 hours. Stair climbing should be kept to a minimum. Do not lift objects heavier than 10-15 pounds for the next 48 hours Avoid straining for bowel movements as you can pop open the clot that has formed on the artery. 4. If you develop bulging under the skin or bleeding at the puncture site, put direct pressure on the puncture site for 15 minutes and call your doctor. If the bleeding persists, reapply pressure, and go to your local Emergency Department. 5. If you notice a sudden change in the feeling (numbness, tingling and/or pain) of your leg on theside of the puncture call your doctor. 6. You may develop a bruise at the puncture site. This should go away within a week to 10 days. If a bulge develops after the first three days, call your doctor or the Radiology/Vascular Department here. Report signs of infection (redness, swelling, discharge, soreness, or fever) to your doctor. 7. Leave the bandage on for 24-48 hours. You may shower the following day after the procedure. You should NOT swim or tub bathe for [address] for 24 hours after the procedure. Do not sign any important documents or smoke unattended for 24 hours. You may return to work with the above restrictions on . 9. If you have any questions or concerns, please call Interventional Radiology Department at until 6pm. After 6pm, or on weekends or hoildays, call and ask for the residential program coordinator pulmonary physician. OR Vascular Department at until 4:45pm. After 4:45pm call and ask for the Vascular resident pulmonary physician. 10. If you are a diabetic and take Metformin or Janumet, Do not take it for 2 days after the procedure. You have received medication during your procedure to help lesson anxiety and keep you comfortable and which affects judgement and reaction time. We recommend that you do not drive, operate equipment, sign any important documents, or smoke unattended for 24 hours following your procedure. Because of the sedation please be careful on stairs, as you may be unsteady on your feet. You may resume your regular diet as tolerated. IV site -- slight redness, or tenderness is normal, you can use a warm compress. If tenderness and redness increases or foul drainage occurs, please contact your M. D. Revised 12/05/18 * Patient Instructions* Maximilian Sanchez MD - 01/31/2023 4:03 PM EST ANGIOGRAM DISCHARGE INSTRUCTIONS PRESCRIPTION INSTRUCTIONS: Please see the medication reconciliation list on this discharge summary for a current list of your medications. OK to stop plavix, please continue aspirin WHEN TO SEEK MEDICAL CARE: Signs or [...] pain medication, if prescribed. FOLLOW UP PLAN: [x] Please follow up in the Neurosurgery Clinic in 1 year . Please call the Neurosurgery Office at [phone] if you do not receive a scheduled appointment within two weeks. You will follow-up with: [x] Dr. Watts [] Dr. Durbin [] Dr. Meyer Imaging: DSA HOW TO REACH NEUROSURGERY Office Hours (Sunday through Sunday 8am-5pm): Call On weekends or after office hours (after 5pm or before 8am): Call [phone] and ask the field laboratory operator to page the Neurosurgery Resident/Advanced Practice Provider pulmonary physician. *Your surgeon may not be at home independent call center agent (especially after office hours or on the weekend) so be ready totell about yourself and your surgery when you call. Neurosurgery Providers Adult Neurosurgery Dr. Nevan Nathan Dr. Sherman Echt Dr. Hollissaige Colunga Pediatric Neurosurgery Dr. Arpita Jarrett Advanced Practice Providers Nallely Barry, Nurse Practitioner (outpatient telehealth) Jackie Sarmiento, Physician Parts Manager (inpatient/outpatient: neuro-oncology) Christy Bentley, Physician Parts Manager (inpatient) Manuel Nunez, Nurse Practitioner (outpatient: pediatric) Araceli Levi, Nurse Practitioner (outpatient: vascular) Venessa Mckeon, Physician Parts Manager (outpatient: spine) Mitch Aguilar, Physician Parts Manager (outpatient) Outpatient Nurses Rachna Guerrero, JENNYFER Zuluaga RN documented in this encounter Medications [...] as needed 11/15/2015 exemestane (Aromasin) 25 mg tabletIndications:Malig nant neoplasm [...] as of this encounter Progress Notes * Maximilian Sanchez MD - 01/31/2023 4:27 PM EST NEUROSURGERY PROGRESS NOTE ID: Wendy Sandoval is a 57 y.o. female with AXEL aneurism s/p prior pipeline stent placement whois now s/p routine f/u DSA HD# 0 POD # Day of Surgery INTERVAL HX/ROS: POC Hypertensive to 180's, PRN hydralazine ordered MEDICATIONS: Scheduled Meds: sodium chloride 0.9 % (flush) 5 mL Intravenous BID nitroGLYcerin 200 mcg Intra-arterial Once verapamiL 2.5 mg Intra-arterial Once heparin (porcine) 3,000 Units Intra-arterial Once Continuous Infusions: sodium chloride 0.9% infusion 1,000 mL Intravenous Continuous ### PRN Meds: sodium chloride 0.9 % (flush), lidocaine, sodium chloride 0.9 % (flush), fentaNYL (PF), flumazeniL, naloxone, midazolam (PF), ondansetron, hydrALAZINE EXAM: Vitals: Temp: [36.7 ??C (98 ??F)-37.2 ??C (99 ??F)] Heart Rate: [54-76] Resp: [13-20] BP: (111-183)/(67-129) SpO2: [92 %-100 %] Heart Rate from SpO2: [53 bpm-76 bpm] BMI: I/O: No intake/output data recorded. GEN:NAD NEURO:AA+Ox3 Speech fluent and appropriate. No facial asymmetry Tongue midline MOTOR: RUE:5/5 LUE:5/5 RLE: 5/5 LLE: 5/5 No pronator drift LT sensation intact x 4 Groin site without hematoma, Radial access site without hematoma Dressings dry and intact LABS: No results for input(s): WBC, HGB, PLATELET in the last 72 hours. No results for input(s): NA, K, CL, CO2, BUN, CREATININE in the last 72 hours. No results for input(s): PT, INR in the last 72 hours. IMAGING: none Assessment: Wendy Sandoval is a 57 y.o. female with AXEL aneurism s/p prior pipeline stent placement who is now s/p routine f/u DSA. Some elevated BP post op possibly 2/2 discomfort. PRN hydralazine ordered Problem List: AXEL aneurism Plan: - Flat 4 hours post angio - PRN hydralazine for HTN, SBP<160 -Discharge once criteria met PLEASE PAGE [phone] WITH QUESTIONS There are no hospital problems to display for this patient. 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 [address]: [address] [place] [phone] (home) [phone] (work) Mobile: Telephone Information: Referring Provider: Araceli Levi REASON FOR VISIT: Order Questions Answers Where will study be performed? [facility] Radiology [120] Is the patient on anticoagulant / antiplatelet therapy ? Aspirin,Clopidogrel Reason for exam and clinical history: stent rx AXEL aneurysm Exam/Procedure requested: DSA, Dr. Watts Does patient require sedation? 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 Onto table supine. All monitors, O2, safety strap in place.Meds per protocol. Arterial Puncture Post Procedure Time of Arterial Puncture: 151 Site: Right groin Closure device used: Angio Seal Time sheath removed: 1546 Time of hemostasis: 1551 Hematoma present?: No Anticipated up time: 1951 Laboratory Results: Lab Results Component Value Date INR 1.1 11/30/2017 Lab Results Component Value Date CREATININE 1.91 (H) 01/24/2023 Lab Results Component Value Date K 4.5 01/24/2023 Lab Results Component Value Date PLATELET 375 (H) 01/24/2023 documented in this encounter H&P Notes * Araceli Levi, JEWEL HOLE GAUGER - 01/31/2023 10:54 AM EST NEURORADIOLOGY BRIEF PRE-PROCEDURE NOTE Name: Wendy Sandoval Date of : 1965 Indication: AXEL aneurysm, pipeline stent Planned Procedure: diagnostic cerebral angiogram, Dr. Watts Chief Complaint/HPI: Wendy Sandoval is a 57 y.o. female presenting for above procedure. Medical history, medications, allergies reviewed. Denies fevers, chills, cough, dyspnea, chest pain, bleeding difficulty. Current Outpatient Medications: Stelara 45 mg/0.5 mL subcutaneous injection, MAINTENANCE: [...] Rfl: No current facility-administered medications for this encounter. Allergies Allergen Reactions Penicillins Thrush PAT Penicillin Allergy Risk Assessment 07/20/2022: Moderate Risk Reaction. Patient referred to allergy clinic for pre-op testing. Other Reaction(s): Thrush Sertraline PSORIASIS FLARE Other Reaction(s): Skin Rash Physical Exam: A&Ox3, in NAD. HR reg, s1/s2 RR reg, nonlabored, symmetric chest expansion, lungs CTA. BS active x4, soft, nondistended Fluent speech. EOMs full. VFF. Face symmetric, tongue midline. No pronator drift. UE/LE strength full. Light touch sensation intact. ASA: II Mallampati: III Labs: Creatinine Date Value Ref Range Status 01/24/2023 1.91 (H) 0.70 - 1.20 mg/dL Final 11/08/2022 1.87 (H) 0.70 - 1.20 mg/dL Final 11/08/2022 1.87 (H) 0.70 - 1.20 mg/dL Final 07/25/2022 1.46 (H) 0.70 - 1.20 mg/dL Final 07/20/2022 1.70 (H) 0.70 - 1.20 mg/dL Final 2022 1.60 (H) 0.70 - 1.20 mg/dL Final Platelets Date Value Ref Range Status 01/24/2023 375 (H) 145 - 357 x10(3)/mcL Final Assessment: 57 y.o. female with the above history. No contraindications to procedure. Will follow renal protocol for fluids abdiaziz-procedure, as follows: NaCl 0.9% 250ml/hr x 1 hour prior to procedure. NaCl 0.9% 100ml/hr during procedure. NaCl 0.9% 250ml/hr x 2 hours post procedure. Position: supine Prophylaxis: n/a Pathology: n/a Sedation: moderate Additional medications for procedure: radial access Consent: obtained Araceli Levi APRN 01/31/2023 10:55 AM documented in this encounter Miscellaneous Notes * Brief Op Note - Maximilian Sanchez MD - 01/31/2023 3:55 PM EST Brief Operative Note Patient Name: Wendy Sandoval : [id number] MR#: [id number] Case Date: 01/31/2023 Surgeon: Mac Preoperative diagnosis: AXEL aneurism Postoperative diagnosis: AXEL aneurism DSA R Radial access attempted R MEDICAL SCIENTIFIC LIAISON, Closed with angioseal Anesthesia: Concious sedation Findings: subtle small residual filling with good stent opposition and no endoleak Complications: None Estimated Blood Loss: <100cc Specimens removed during surgery: none Fluids: Intraprocedure Crystalloid Total None PRBCs: none (See Anesthesia Record/Report for Other Blood Products) Urine Output: (no urine output recorded) Drains: none Disposition: aroused from sedation, and taken to the recovery room in a stable condition Condition: doing well without problems (Please see the Surgical Encounter Summary for any Implant and Specimen details pertinent to this patient.) Maximilian Sanchez MD documented in this encounter Plan of Treatment Upcoming Encounters Date Type Department Care Team (Late st Contact Info) Description 01/22/2024 10:30 AM EST Appointment Mammography/DXA at [place] [phone] Ladi Mendosa MD [facility] DR HEMATOLOGY/ONCOLOGY [place] [id number] 01/30/2024 11:30 AM EST Office Visit Dermatology at [address] [place] [address] Nilda Luis MD [facility] [address] [place] [address] 02/15/2024 9:30 AM EST [place]ment [place] [phone] [place] [address] Scheduled Orders Name Type Priority Associated Diagnoses Orde r Schedule Basic Metabolic Panel (non-fasting) Lab STAT 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 ? Electronically signed by: Bill Smith MD, [facility] ([phone]), at 01/31/2023 8:56 PM Narrative 01/31/2023 8:56 PM EST EXAMINATION: CT HEAD WO CONTRAST (GENERIC) CLINICAL HISTORY: headache s/p DSA TECHNIQUE: CT head performed without intravenous contrast administration. COMPARISON: [facility] 11/08/2022. Head CT 07/24/2022 FINDINGS: [...] contrast administration. COMPARISON: CT [facility] 11/08/2022. Head CT 07/24/2022 FINDINGS: [...] patients who have questions please contactthe health career education teacher that requested your imaging first. 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 When ordered for pain, acetaminophen should be given even when other ordered pain medications are indicated., Angio/IR (Intra-Procedure), STAT Given 01/31/2023 8:30 PM EST 975 mg fentaNYL (pf) (50 mcg/mL) multi-dose injection 25-50 mcg 25-50 mcg, Intravenous, EVERY 3 MIN PRN, Starting on Sun01/31/23 at 1253, Until Sun01/31/23 at 2210, Pain, per unit protocol, For use in [...] mcg/dose, 250 mcg/hour, Angio/IR (Intra-Procedure), Routine Given 01/31/2023 3:42 PM EST 50 mcg Given 01/31/2023 3:07 PM EST 50 mcg Given 01/31/2023 2:49 PM EST 25 mcg hydrALAZINE (Apresoline) (20 mg/mL) injection 10 mg 10 mg, Intravenous, EVERY 6 HOURS PRN, Starting on Sun01/31/23 at 1626, Until Sun02/01/23 at 0234, High Blood Pressure, For SBP>160 Given 01/31/2023 4:32 PM EST 10 mg hydrALAZINE (Apresoline) (20 mg/mL) injection 10 mg 10 mg, Intravenous, ONCE PRN, 1 dose, Starting on Sun01/31/23 at 1822, Until Sun01/31/23 at 1836, High Blood Pressure, Not to exceed 20mg every 6 hours., Angio/IR (Day of Procedure) Given 01/31/2023 6:36 PM EST 10 mg iodixanoL (Visipaque) (320 mg/mL) injection solution 1-400 mL 1-400 mL, Intra-arterial, ONCE, 1 dose, On Sun01/31/23 at 1315, For intra-procedural use by proceduralist., Angio/IR (Intra-Procedure), Routine Given 01/31/2023 1:15 PM EST 25 mLs lidocaine (Xylocaine) 1% (10 mg/mL) injection 10 mg 10 mg, Subcutaneous, ONCE, 1 dose, On Sun01/31/23 at 1315, For use in Interventional Radiology (IR) only for procedure with direct provider supervision and verbal order., Angio/IR (Intra-Procedure), Routine Given 01/31/2023 3:13 PM EST 10 mg Given 01/31/2023 2:51 PM EST 10 mg midazolam (pf) (Versed) (1 mg/mL) multi-dose injection 0.5-1 mg 0.5-1 mg, Intravenous, EVERY 3 MIN PRN, Starting on Sun01/31/23 at 1253, Until Sun01/31/23 at 2210, Sedation, For use in Interventional Radiology (IR) [...] mg/dose, 5 mg/hour., Angio/IR (Intra-Procedure), Routine Given 01/31/2023 3:42 PM EST 0.5 mg Given 01/31/2023 2:49 PM EST 0.5 mg Given 01/31/2023 2:41 PM EST 0.5 mg sodium chloride 0.9% infusion 1,000 mL, at 100 mL/hr, Intravenous, CONTINUOUS, Starting on Sun01/31/23 at 1315, Until Sun01/31/23 at 2210, Angio/IR (Day of Procedure) New Bag 01/31/2023 2:28 PM EST 1,000 mLs 100 mL/hr documented in this encounter Care Teams Information Director Relationship Specialty Start Date End Date Trinh Coates MD [address] [place] [address] PCP - General 01/11/10 documented as of this encounter
--- OUTSIDE RECORDS SUMMARY | 2023-09-07 11:24 | XMS_ITS | Encounter Summary ---
Author Organization [facility] [place] [address] Care Team Providers Care Hydrotreater Operator Name Role Phone Trinh Coates MD Primary Care Provider [phone] Encounter Details Date Type Department Care Team (Latest Contact Info) Description 08/24/2022 9:40 AM EDT TH Visit (TeleHealth) [place] [address] Araceli Levi, E LEARNING COORDINATOR 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 Inpatients - 1 mL/kg/hour for 6 to 12 hours preprocedure, intraprocedure, and for 6 to 12 hours postprocedure. 05/19/2022: DSA showing 4mm AXEL aneurysm, likely carotid cave 07/24/2022: Flow diverting stent placement of right ICA aneurysm via right common femoral artery Discharged with ASA 81mg and Plavix 75mg daily. History of breast cancer Seroma of breast Bacterial conjunctivitis Hypokalemia Surgery follow-up Abdominal wound dehiscence S/P breast reconstruction, bilateral Malignant neoplasm of upper-outer quadrant of left breast in female, estrogen receptor positive Hyperparathyroidism Obstructive sleep apnea (adult) (pediatric) OA (osteoarthritis) Overweight(278.02) Hypertension Depression HISTORY: Wendy Sandoval Seen via video visit. Returns in followup for unruptured AXEL cerebral aneurysm. Antiplatelet therapy ASA 81mg, Plavix 75mg. Aneurysm treatment: Pipeline stent placement Doing well functionally. Tolerating antiplatelet therapies. Headaches: no Fatigue: no change Vision change: no change Weakness/sensory loss: no Gait impairment: no Puncture site healed, no hematoma. PHYSICAL EXAM: No acute distress Awake, Alert, Interactive IMAGING & OTHER RESULTS: N/a ASSESSMENT/PLAN: Doing well following aneurysm treatment. Followup CTA scheduled in 3 months; 11/08/22. documented in this encounter Plan of Treatment Upcoming Encounters Date Type Department Care Team (Late st Contact Info) Description 01/22/2024 10:30 AM EST Appointment Mammography/[place] [phone] Ladi Mendosa MD [facility] HEMATOLOGY/[place] [address] 01/30/2024 11:30 AM EST Office Visit Dermatology at [facility] [address] [place] [address] Nilda Luis MD [facility] [address] [address] 02/15/2024 9:30 AM EST [place] [phone] [place] [address] documented as of this encounter Visit Diagnoses Diagnosis 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
--- OUTSIDE RECORDS SUMMARY | 2023-09-07 11:24 | XMS_ITS | Encounter Summary ---
Author Organization [facility] Address [facility] [place] [address] Care Team Providers Care Dock Worker Name Role Phone Trinh Coates MD Primary Care Provider [phone] Reason for Visit * Reason Comments Medication Refill Encounter Details Date Type Department Care Team (Late st Contact Info) Description 01/30/2023 Refill Dermatology at [facility] [address] [place] [address] Nilda Luis MD [facility] [address] [place] [address] Psoriasis Social History Tobacco Use Types Packs/Day Years [...] encounter Miscellaneous Notes * Telephone Encounter - Cristina Gleason LPN - 01/30/2023 7:52 AM EST Medication Refill Request Order(s) pended and routed to Dr. Luis to review and sign, if appropriate. - Medication(s) requested to refill: Stelara - Associated diagnosis: psoriasis - Last visit: 09/26/2022 - Recommended follow up: 2 months for 5FU - Next scheduled: Visit date not found - Special considerations: will needs annual follow up at least Q-Gold due in June - Appropriate to refill: pending MD approval documented in this encounter Plan of Treatment Upcoming Encounters Date Type Department Care Team (Late st Contact Info) Description 01/22/2024 10:30 AM EST Appointment Mammography[place] [phone] Ladi Mendosa MD [facility] HEMATOLOGY/[place] [address] 01/30/2024 11:30 AM EST Office Visit Dermatology at [address] [phone] Nilda Luis MD [facility] DR [address] [place] [address] 02/15/2024 9:30 AM EST [place] [address] [place] [address] documented as of this encounter Visit Diagnoses Diagnosis Psoriasis Other psoriasis documented in this encounter Care Teams Dock Worker Relationship Specialty Start Date End Date Trinh Coates MD [facility] [address] [place] [address] PCP - General 01/11/10 documented as of this encounter
--- OUTSIDE RECORDS SUMMARY | 2023-09-07 11:24 | XMS_ITS | Encounter Summary ---
Author Organization [facility] [place] [address] Care Team Providers Care Property Specialist Name Role Phone Trinh Coates MD Primary Care Provider [phone] Reason for Referral * Diagnostic Test (Routine) - Closed Specialty Diagnoses / Procedures Referred By Diamante marin Referred To Contact Radiology Diagnoses Brain aneurysm Procedures CT Angiogram [place] Alfred Stover MD [facility] [place] [address] [facility] [place] [address] Referral ID Status Reason Start Date Expiration Date V isits Requested Visits Authorized [id number] Closed Specialty Service Requested 10/26/2022 04/24/2023 1 1 Reason for Visit * Auth/Cert (Routine) Specialty Diagnoses / Procedures Referred By Diamante marin Referred To Contact Diagnoses Cerebral aneurysm, nonruptured AXEL pipeline Procedures PRO PERM OCCLUSION/EMBOLIZATION, PERCUT, ENGAGEMENT DIRECTOR @TRANSCATHETER OCCLUSION/EMBOLIZATION FOR TUMOR DESTRUCTION (WRVU 20.12) [place] [address] [facility] Referral ID Status Reason Start Date Expiration Date Visits Re quested Visits Authorized [id number] 1 1 Encounter Details Date Type Department Care Team (Latest Contact Info) Description 07/24/2022 6:06 AM EDT - 07/25/2022 4:40 PM EDT Hospital Encounter Surgical [place] [address] [place] [address] Brain aneurysm; Neuropathy due to chemotherapeutic drug; Malignant neoplasm of upper-outer quadrant of left breast in female, estrogen receptor positive Discharge Disposition: Home Social History Tobacco Use [...] Sign Reading Time Taken Comments Blood Pressure 135/78 07/24/2022 12:42 PM EDT Pulse 85 07/25/2022 3:00 PM EDT Temperature 37.3 ??C (99.1 ??F) 07/25/2022 2:00 PM ED T Respiratory Rate 17 07/25/2022 3:00 PM EDT Oxygen Saturation 95% 07/25/2022 3:00 PM EDT Inhaled Oxygen Concentration - - Weight 76.2 kg (168 lb) 07/24/2022 6:18 AM EDT Height 152.4 cm (5') 07/24/2022 6:18 AM EDT Body Mass Index 32.81 07/24/2022 6:18 AM EDT documented in this encounter Discharge Summaries * Christy Bentley PA - 07/25/2022 6:27 AM EDT Neurosurgery Discharge Summary Patient Name: Wendy Sandoval Patient Age: 57 y.o. Birthdate: 1965 Admit date: 07/24/2022 Discharge date: 07/25/2022 Attending Physician: Joanna Watts MD Discharge Diagnoses: Right ophthalmic artery aneurysm Operations/Major Procedures: 07/24/2022: Flow diverting stent placement of right ICA aneurysm via right common femoral artery. Procedure(s): @TRANSCATHETER OCCLUSION/EMBOLIZATION FOR TUMOR DESTRUCTION (WRVU 20.12) 07/24/2022 History of Presentation: The below history was copied from the patient's H&P from 07/24: 57F with PMH of HTN, breast cancer, CKD stage III (Cr 1-2) and JACQUELYN (o CPAP) who had a screening MRA due to family history of ruptured aneurysms and was found to have a R 2mm aneurysm proximal to theophthalmic origin with DSA on 05/19/22 suggesting that this now 4mm aneurysm had an intradural component. Returns for flow diverting stent placement. Hospital Course: Patient was admitted electively to [facility] via the same day surgery program and underwent the above procedure. She tolerated surgery well and was transferred to the ICU in good condition. Right groin access site was bleeding for short period of time postprocedure. Manual pressure was held and the bleeding resolved. No other issues with the groin access site. Patient's hospital course was otherwise uncomplicated. She remained afebrile, with stable vital signs throughout her hospital stay. Today, onPOD#1 she has met all criteria for discharge home: her pain is well controlled with medications by mouth, she is tolerating a regular diet, is voiding spontaneously without difficulties, and is up and ambulating without complications. She has been deemed safe for discharge to home. 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 Last value Range last 24 hrs Temperature Temp: 37.3 ??C (99.1 ??F) Temp: [36.4 ??C (97.5 ??F)-37.4 ??C (99.3 ??F)] Heart Rate Heart Rate: 85 Heart Rate: [67-90] Blood Pressure BP: 135/78 BP: -- Respiratory Rate Resp: 17 Resp: [15-26] SpO2 SpO2: 95 % SpO2: [90 %-96 %] Physical Exam on Discharge: Gen: NAD Pulm: RA CV: Nontachycardic Neuro: AOx4 PERRL, EOMI FS, TM 5/5 strength throughout Sensation intact and equal bilaterally Right groin: small, stable hematoma, mildly tender. No expansion overnight. Pulses: distal pulses intact. Discharge Condition: Good Discharge to: Home Discharge Medications: Your Medications Continued medications with new dosing Dose Details acetaminophen 325 mg tablet Commonly known as: Tylenol Take 3 tablets by mouth every 6 hours as needed. What changed: how much to take when to take this reasons to take this 975 mg Quantity: 30 tablet Refills: 1 aspirin 81 mg chewable tablet Take 81 mg by mouth daily. Start taking on: July 26, 2022 What changed: additional instructions 81 mg Quantity: 30 tablet Refills: 3 clopidogreL 75 mg tablet Commonly known as: Plavix Take 1 tablet by mouth daily. Start taking on: July 26, 2022 What changed: additional instructions 75 mg Quantity: 90 tablet Refills: 3 Continued medications, unchanged Dose Details CALCIUM 600 ORAL Take 600 mg by mouth every other day. 600 mg Refills: 0 cholecalciferol (Vitamin D3) 125 mcg (5,000 unit) tablet Commonly known as: Vitamin D3 Take by mouth daily. Refills: 0 dilTIAZem CD 240 mg CD (ER) 24 hr casule Commonly known as: Cardizem CD Take 240 mg by mouth daily. 240 mg Refills: 0 exemestane 25 mg tablet Commonly known as: Aromasin Take 1 tablet by mouth daily. 25 mg Quantity: 30 tablet Refills: 11 ferrous gluconate 324 mg (37.5 mg iron) tablet Commonly known as: Ferate Take 324 mg by mouth daily. 324 mg Refills: 0 FLUoxetine 40 mg capsule Commonly known as: PROzac Take 40 mg by mouth daily. 40 mg Refills: 0 losartan 100 mg tablet Commonly known as: Cozaar take 1 tablet by mouth once daily Refills: 0 MULTI-VITAMIN ORAL Take 1 tablet by mouth daily. 1 tablet Refills: 0 rosuvastatin 10 mg tablet Commonly known as: [...] drug: ustekinumab Quantity: 0.5 mL Refills: 2 valACYclovir 500 mg tablet Commonly known as: Valtrex TAKE 1 TABLET BY MOUTH TWICE DAILY FOR 3 DAYS Refills: 0 STOPPED Medications ibuprofen 200 mg tablet Commonly known as: Advil UNREVIEWED medications - Discuss With Your Provider Dose Details gabapentin 300 mg capsule Commonly known as: Neurontin Take 1 capsule by mouth 3 times daily. 300 mg Quantity: 90 capsule Refills: 3 Updated Allergies/ADRs: Allergies Allergen Reactions Penicillins Thrush PAT Penicillin Allergy Risk Assessment 07/20/2022: Moderate Risk Reaction. Patient referred to allergy clinic for pre-op testing. Zoloft [Sertraline] PSORIASIS FLARE Instructions Given to Patient at Discharge: Patient Instructions ENDOVASCULAR TREATMENT OF UNRUPTURED INTRACRANIAL ANEURYSM DISCHARGE INSTRUCTIONS PRESCRIPTION INSTRUCTIONS: Please see the medication reconciliation list on this discharge summary for a current list of your medications. If not already on blood thinners, these will be started at the time of your coiling procedure [x] Plavix (clopidogrel): Please take this medication following treatment of your aneurysm. Your doctor will tell you how long you need to be on this medication at your follow up appointment. [x] Aspirin: Please take an aspirin daily for lifelong. This is necessary due to the coils that areplaced in your aneurysm. -Please contact us if you are having bruising, bleeding from gums or nose, or heartburn/stomach pain while taking the blood thinners. WHEN TO SEEK MEDICAL CARE: Signs or symptoms of an infection - Fever over 101F - Redness, swelling, or increasing pain around your puncture site - Drainage of pus or blood from your puncture site Headaches - These can be very intense for a few days, and are partially related to the dye used during the procedure and will get better on their own. - For headaches that are not relieved with pain medications, progressively worsen, or are severe please call New neurologic symptoms - New unsteadiness when walking - New weakness or sensory changes to one side of your body - Slurred speech or difficulty speaking - Facial droop - Confusion - Seizure - Any other [...] while awake, for prolonged amounts of time. WOUND CARE: - The puncture site at the top of your thigh has no sutures. No wound care is necessary. The puncture site at the top of your leg can be very tender for a week or two. Avoid soaking in the tub or swimming for 7 days after procedure. Call us if you develop a hard or expanding lump, or worsening pain. Bruising at the area and along your thigh happens frequently. DIET: - You may resume your usual diet. ACTIVITY: - You may increase your activities as tolerated. - Restrict strenuous activity (such as running, jumping, jogging, shoveling, heavy lifting, etc.) for at least 2 weeks. FOLLOW UP PLAN: [x] Please follow up in the Neurosurgery Clinic in two weeks with an advanced practice provider. Please call the Neurosurgery Office at [phone] if you do not receive a scheduled appointment within two weeks. You will follow-up with Dr. Watts in 3 months Imaging: [] None [] CT: [] Head [] Neck [x] CTA: [x] Head [x] Neck [] MRA: [] Head [] Neck SMOKING: Smoking has a negative impact on bone healing, in terms of delayed union, nonunion, and more complications. Smoking is the leading preventable cause of , and quitting is the single most important thing you can do for your health. However, it's hard to quit smoking and you might need some help. Nicotine in tobacco is an addictive drug and it can be a very difficult to quit. Seventy percent of all adult smokers want to quit smoking but are overwhelmed with the process. We can help! Our Tobacco Dependence Clinics We have tobacco dependence clinics in these locations: [facility]: [place] [facility] Tobacco Treatment [place], [place] Other Programs at [facility] in [place] Living Free of Tobacco support group: For anyone who has quit tobacco or is considering quitting tobacco. [facility] Health Education Center, Level 4, [place] 3:30 to 4:30 p.m. on the sunday of every month. Other Programs in the Area [facility] in [place] One-on-one counseling, hypnosis. Arpita Bess [facility] in [place], [place] One-on-one counseling, QuitLine, classes. Alejandra Hall [facility]: One-on-one counseling. All ages and incomes eligible. Breann Sheffield [facility]: Classes & support group. [facility] in [place], [place] One-on-one counseling, QuitLine, classes, hypnosis therapy. Lorie Linares Information about Quitting Smoking and Tobacco See our Quitting Smoking - Information and Materials page ([email or web address]- information/smoking/information_on_quitting_smoking.html) for educational information about quitting smoking, downloadable smoking cessation materials, podcasts, websites, helplines, and more. FOLLOW UP PLAN: Future Appointments Date Time Provider Department Center 08/03/2022 10:15 AM Tahira Cardenas APRN [facility] [place] [facility] HOW TO REACH NEUROSURGERY Office Hours (Sunday through Sunday 8am-5pm): Call On weekends or after office hours (after 5pm or before 8am): Call [phone] and ask the basin operator to page the Neurosurgery Resident/Advanced Practice Provider telecommunications consultant. *Your surgeon may not be national basketball association scout (especially after office hours or on the weekend) so be ready totell about yourself and your surgery when you call. Neurosurgery Providers Adult Neurosurgery Dr. Curtis Mann Pediatric Neurosurgery Dr. Arpita Jarrett Advanced Practice Providers Nallely Barry, Nurse Practitioner (outpatient) Jackie Sarmiento, Physician Entry Level Software Developer (inpatient/outpatient: neuro-oncology) Halie Grande, Nurse Practitioner (inpatient) Christy Bentley, Physician Entry Level Software Developer (inpatient) Manuel Nunez, Nurse Practitioner (outpatient: pediatric) Araceli Levi, Nurse Practitioner (outpatient: vascular) Venessa Mckeon, Physician Entry Level Software Developer (outpatient: spine) Kana Melendrez, Nurse Practitioner (inpatient/outpatient) Mitch Aguilar, Physician Entry Level Software Developer (outpatient) Outpatient Nurses Rachna Guerrero General Instructions None Future Appointments and Orders Future Appointments and Orders Future Appointments Provider Department Dept Phone 08/03/2022 10:15 AM Tahira Cardenas APRN Radiation Oncology at [facility] Arrive at: [facility] door at end of hallway [phone] Future Orders Complete By Expires CT Angiogram [place] [[id number] Custom] 10/25/2022 04/26/2023 Process Instructions: Scheduling Instructions: Questions: Clinical information / arteaga questions for radiologist: Where will study be performed?: [facility] Radiology Stat read required?: Does patient require sedation?: GA rationale: Date of injury if applicable: Notify physician (specify) [FGG031 Custom] As directed Process Instructions: Scheduling Instructions: Comments: *Nausea or vomiting *Temperature of Greater than 100.4 Degrees Farenheit *Redness, tenderness, odor, or discharge around the incision site *Severe Pain Questions: Scheduled Appointments: Future Appointments Date Time Provider Department Center 08/03/2022 10:15 AM Tahira Cardenas, COMMUNITY HE[facility] NURSING DIRECTOR [facility] Primary Care Doctor: Trinh Coates MD [phone] Signed: STEVAN Pink 07/25/2022 documented in this encounter Discharge Instructions * Patient Instructions* hCristy Bentley PA - 07/25/2022 9:55 AM EDT ENDOVASCULAR TREATMENT OF UNRUPTURED INTRACRANIAL ANEURYSM DISCHARGE INSTRUCTIONS PRESCRIPTION INSTRUCTIONS: Please see the medication reconciliation list on this discharge summary for a current list of your medications. If not already on blood thinners, these will be started at the time of your coiling procedure [x] Plavix (clopidogrel): Please take this medication following treatment of your aneurysm. Your doctor will tell you how long you need to be on this medication at your follow up appointment. [x] Aspirin: Please take an aspirin daily for lifelong. This is necessary due to the coils that areplaced in your aneurysm. -Please contact us if you are having bruising, bleeding from gums or nose, or heartburn/stomach pain while taking the blood thinners. WHEN TO SEEK MEDICAL CARE: Signs or symptoms of an infection - Fever over 101F - Redness, swelling, or increasing pain around your puncture site - Drainage of pus or blood from your puncture site Headaches - These can be very intense for a few days, and are partially related to the dye used during the procedure and will get better on their own. - For headaches that are not relieved with pain medications, progressively worsen, or are severe please call New neurologic symptoms - New unsteadiness when walking - New weakness or sensory changes to one side of your body - Slurred speech or difficulty speaking - Facial droop - Confusion - Seizure - Any other [...] while awake, for prolonged amounts of time. WOUND CARE: - The puncture site at the top of your thigh has no sutures. No wound care is necessary. The puncture site at the top of your leg can be very tender for a week or two. Avoid soaking in the tub or swimming for 7 days after procedure. Call us if you develop a hard or expanding lump, or worsening pain. Bruising at the area and along your thigh happens frequently. DIET: - You may resume your usual diet. ACTIVITY: - You may increase your activities as tolerated. - Restrict strenuous activity (such as running, jumping, jogging, shoveling, heavy lifting, etc.) for at least 2 weeks. FOLLOW UP PLAN: [x] Please follow up in the Neurosurgery Clinic in two weeks with an advanced practice provider. Please call the Neurosurgery Office at [phone] if you do not receive a scheduled appointment within two weeks. You will follow-up with Dr. Watts in 3 months Imaging: [] None [] CT: [] Head [] Neck [x] CTA: [x] Head [x] Neck [] MRA: [] Head [] Neck SMOKING: Smoking has a negative impact on bone healing, in terms of delayed union, nonunion, and more complications. Smoking is the leading preventable cause of , and quitting is the single most important thing you can do for your health. However, it's hard to quit smoking and you might need some help. Nicotine in tobacco is an addictive drug and it can be a very difficult to quit. Seventy percent of all adult smokers want to quit smoking but are overwhelmed with the process. We can help! Our Tobacco Dependence Clinics We have tobacco dependence clinics in these locations: [facility]: [place] [facility] Tobacco Treatment Center [place], [place] Other Programs at [facility] in [place] Living Free of Tobacco support group: For anyone who has quit tobacco or is considering quitting tobacco. [facility] Health Education Center, Level 4, [place] 3:30 to 4:30 p.m. on the sunday of every month. Other Programs in the Area [facility] in [place] One-on-one counseling, hypnosis. Arpita Bess [facility] in [place], [place] One-on-one counseling, QuitLine, classes. Alejandra Hall [facility]: One-on-one counseling. All ages and incomes eligible. [facility]: Classes & support group. [facility] in [place], [place] One-on-one counseling, QuitLine, classes, hypnosis therapy. Lorie Linares Information about Quitting Smoking and Tobacco See our Quitting Smoking - Information and Materials page (http://[email or web address].org/medical- information/smoking/information_on_quitting_smoking.html) for educational information about quitting smoking, downloadable smoking cessation materials, podcasts, websites, helplines, and more. FOLLOW UP PLAN: Future Appointments Date Time Provider Department Center 08/03/2022 10:15 AM Tahira Cardenas APRN [facility] [place] [facility] HOW TO REACH NEUROSURGERY Office Hours (Sunday through Sunday 8am-5pm): Call On weekends or after office hours (after 5pm or before 8am): Call [phone] and ask the basin operator to page the Neurosurgery Resident/Advanced Practice Provider telecommunications consultant. *Your surgeon may not be national basketball association scout (especially after office hours or on the weekend) so be ready totell about yourself and your surgery when you call. Neurosurgery Providers Adult Neurosurgery Dr. Nevan Nathan Dr. Sherman Echt Dr. Nish Mann Pediatric Neurosurgery Dr. Arpita Jarrett Advanced Practice Providers Nallely Barry, Nurse Practitioner (outpatient) Jackie Sarmiento, Physician Entry Level Software Developer (inpatient/outpatient: neuro-oncology) Halie Grande, Nurse Practitioner (inpatient) Christy Bentley, Physician Entry Level Software Developer (inpatient) Manuel Nunez, Nurse Practitioner (outpatient: pediatric) Araceli Levi, Nurse Practitioner (outpatient: vascular) Venessa Mckeon, Physician Entry Level Software Developer (outpatient: spine) Kana Melendrez, Nurse Practitioner (inpatient/outpatient) Mitch Aguilar, Physician Entry Level Software Developer (outpatient) Outpatient Nurses Rachna Guerrero documented in this encounter Medications at Time [...] q 6 hrs daily as needed 11/15/2015 aspirin 81 mg chewable tablet Take 81 [...] by mouth daily. 90 tablet 3 07/23/2018 ferrous sulfate (FeroSul) 325 mg (65 mg iron) tablet 1 tablet. 01/26/2014 05/15/2023 omeprazole (PriLOSEC OTC) [address] tablet 1 CAP daily 03/27/2014 024 clopidogreL (Plavix) 75 mg tablet Take 1 tablet by mouth daily. 90 tablet 3 07/26/2022 01/31/2023 MULTI-VITAMIN ORAL Take 1 tablet by mouth daily. 05/15/2023 Stelara 45 mg/0.5 mL subcutaneous injectionIndications:Ps oriasis MAINTENANCE: INJECT 1 SYRINGE SUBCUTANEOUSLY EVERY 12 WEEKS. REFRIGERATE. DO NOT FREEZE 0.5 mL 2 05/16/2022 01/30/2023 valACYclovir (Valtrex) 500 mg Tablet TAKE 1 TABLET BY MOUTH TWICE DAILY FOR 3 DAYS 12/30/2021 08/03/2022 exemestane (Aromasin) 25 mg TabletIndications:Malig nant neoplasm of upper-outer quadrant of left breast in female, estrogen receptor positive Take 1 tablet by mouth daily. 30 tablet 11 10/13/2021 01/08/2023 documented as of this encounter Progress Notes * Marilin Patel MD - 07/25/2022 6:28 AM EDT NEUROSURGERY PROGRESS NOTE PLEASE PAGE [phone] WITH QUESTIONS ID: Wendy Sandoval is a 57 y.o. female with PMH of HTN, breast cancer, CKD stage III (Cr 1-2) and JACQUELYN (o CPAP) who had a screening MRA due to family history of ruptured aneurysms and was found to have a R 2mm aneurysm proximal to the ophthalmic origin with DSA on 05/19/22 suggesting that this now4mm aneurysm had an intradural component. Now s/p flow diverting stent placement via R AUTOMOBILE ACCESSORIES SALESPERSON. HD# 1 POD # 1 Day Post-Op 07/24/22, Dr. Watts: flow diverting stent placement for R ICA aneurysm (R AUTOMOBILE ACCESSORIES SALESPERSON access) INTERVAL HX/ROS: CTH for headaches > negative No further issues with groin site overnight This morning groin site benign No complaints this AM Neuro stable (intact) EXAM: No drains GEN:NAD NEURO:AA+Ox3 Speech fluent and appropriate. Naming and repetition intact. PERRL. EOMI. V1-3 intact bilaterally. No facial asymmetry Tongue midline MOTOR: RUE:5/5 LUE:5/5 RLE: 5/5 LLE: 5/5 No pronator drift LT sensation intact x 4 Groin site with bruising but soft and flat (no hematoma), distal pulses 2+ Dressings dry and intact A/P: Wendy Sandoval is a 57 y.o. female with PMH of HTN, breast cancer, CKD stage III (Cr 1-2) and JACQUELYN (o CPAP) who had a screening MRA due to family history of ruptured aneurysms and was found tohave a R 2mm aneurysm proximal to the ophthalmic origin with DSA on 05/19/22 suggesting that this now 4mm aneurysm had an intradural component. Now s/p flow diverting stent placement via R AUTOMOBILE ACCESSORIES SALESPERSON. -D/c Treviño and ensure voiding -Mobilize -ADAT -D/c home with f/u as follows: --continue DAPT --f/u in 2wks with ASHTYN for check up --f/u in 3 months with AM with CTA --f/u in 6 months with AM for DSA -PT/OT/FIELD GAUGER : } -DISPOSITION: home today -FULL CODE Please page [phone] with questions/concerns for in-house NSGY patients IMAGING: Results for orders placed or performed during the hospital encounter of 07/24/22 CT Head wo Contrast (Generic) (Exam End: 07/24/2022 12:21 PM) Impression No acute intracranial processes. Thank you for letting us participate in the care of this patient. If you are a health care provider and have any questions regarding this report, please contact the number below. For patients who have questions please contact the health clinical care manager that requested your imaging first. CATIONS: Scheduled Meds: gabapentin 600 mg Oral TID aspirin 81 mg Oral Daily clopidogreL 75 mg Oral Daily losartan 100 mg Oral Daily dilTIAZem CD 240 mg Oral Nightly rosuvastatin 10 mg Oral QPM exemestane 25 mg Oral Daily lidocaine 1 patch Transdermal Q24H Continuous Infusions: sodium chloride 0.9% infusion 100 mL/hr Intravenous Continuous ### PRN Meds: prochlorperazine, heparin (porcine), fentaNYL (pf) OR [DISCONTINUED] fentaNYL (pf), trimethobenzamide, ondansetron, oxyCODONE, acetaminophen Vitals: Temp: [36.4 ??C (97.5 ??F)-37.2 ??C (99 ??F)] Heart Rate: [65-90] Resp: [10-26] BP: (135)/(78) SpO2: [90 %-100 %] Heart Rate from SpO2: [67 bpm-93 bpm] BMI: Weight: 76.2 kg (168 lb) (07/24/22617) BMI (Calculated): 32.81 BMI Classification: Obese I/O: I/O last 3 completed shifts: In: 3761 [P.O.:120; I.V.:3641] Out: 3130 [Urine:3120; Blood:10] LABS: Recent Labs 07/25/22220 WBC 13.9* HGB 10.5* PLATELET 266 Recent Labs 07/25/22220 NA 141 K 4.2 CL 112* CO2 18* BUN 33* CREATININE 1.46* No results for input(s): PT, INR in the last 72 hours. Active Hospital Problems Diagnosis Brain aneurysm Resolved Hospital Problems No resolved problems to display. 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 History of breast cancer Seroma of breast Bacterial conjunctivitis Hypokalemia Surgery follow-up Abdominal wound dehiscence S/P breast reconstruction, bilateral Malignant neoplasm of upper-outer quadrant of left breast in female, estrogen receptor positive Hyperparathyroidism Obstructive sleep apnea (adult) (pediatric) OA (osteoarthritis) Overweight(278.02) Hypertension Depression Marilin Patel MD 07/25/2022 Associated attestation - Joanna Watts MD - 07/25/2022 3:31 PM EDT IJoanna, discussed the patient with the resident/ASHTYN team, personally reviewed the imaging, and agree with the assessment and plan as documented in the resident/ASHTYN note. 07/25/2022 3:31 PM Joanna Watts MD Open cerebrovascular and endovascular neurosurgery attending * Usman Barrera RN - 07/24/2022 7:25 PM EDT OUTCOME EVALUATION NOTE: OUTCOME SUMMARY: Patient arrived to floor and groin site was actively bleeding, team placed direct pressure upon arrival, bleeding managed, 5lb sandbag placed over site to maintain pressure. Patient stated intense neck pain upon arrival to unit, taken for STAT head CT. On 1430 check new blood noted at groin site, direct pressure applied, team assessed at bedside, bleeding managed after 20min direct pressure. 5lb sandbag continued. New blood noted again at 1530, direct pressure applied, team notified and assessed patient at bedside. Direct pressure maintained for 20min, bleeding stopped, new pressure dressing placed and 10lbs sandbags applied per team. 10lb sandbags remained in place until 1800 per team, Patient remained flat until 1830 per team at which point HOB was allowed to 15 degrees. Bruising present around incision site, NO hematoma noted. R foot pulses 1+ to palpation, L foot pulses 2+ to palpation. BP managed with nicard drip, see MAR. Treviño draining adequate amounts of CYU. Neck pain/headache managed with one time dose fentanyl. PLAN MOVING FORWARD: HOB allowed to 30 degrees at 1930 Q1 neuro checks Q1 neurovasc checks Regular diet D/c maint fluids when drinking appropriately? documented in this encounter H&P Notes * Senia Jose PA - 07/24/2022 12:31 PM EDT NEUROCRITICAL CARE HISTORY & PHYSICAL Date of Admission: 07/24/2022 6:06 AM HPI: Wendy Sandoval is a 57 y.o. 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 Procedure reportedly uncomplicated. Reportedly angioseal failure at end of procedure requiring manual pressure with no hematoma noted.. She is admitted to the Neurocritical Care service for frequent neurologic monitoring and close observation post-operatively. Upon arrival to the unit, she is complaining of worsening headache and dizziness. Right groin site evaluated by neurovascular attending and noted to have bleeding which was treated with manual pressure and sandbag with improvement. Due to worsening headache, pt taken urgently for repeat CT which was negative for acute intracranial process. ROS: Limited due to anesthesia Past Medical History: Diagnosis Date CKD (chronic kidney disease) stage 3, GFR 30-59 ml/min Fibrocystic breast determined by biopsy High blood pressure Hyperlipidemia Hypertension Impaired fasting glucose Malignant neoplasm of upper-outer quadrant of left breast in female, estrogen receptor positive 03/31/2017 Obstructive sleep apnea on CPAP Proteinuria Past Surgical History: Procedure Laterality Date BREAST BIOPSY Right 11/01 SECTION x 2 HAND SURGERY Right IR ARTERIOGRAM CEREBRAL 05/19/2022 IR Arteriogram Cerebral 05/19/2022 Joanna Watts MD [facility] INTERVENTIONL RAD IR DRAIN CHECK/CHANGE/REMOVE 11/20/2017 IR Drain Check/Change/Remove 11/20/2017 Marcos Dey MD [facility] INTERVENTIONL RAD IR MEDIPORT REMOVAL 01/25/2018 IR Mediport Removal 01/25/2018 Scooby Muñoz, COMMUNITY HEALTH NURSING DIRECTOR [facility] INTERVENTIONL RAD PRG EMG, LARYNX N/A 11/02/2015 FACIAL NERVE MONITORING, SETUP LARYNGEAL performed by Valentina Lucas MD at [facility] MAIN OR PRO BREAST RECONSTRUCTION IMMT/DLYD W/TISS HEAVY MOBILE EQUIPMENT REPAIRER SBSQ EXPANSION Bilateral 04/26/2017 BREAST RECONSTRUCTION, IMMEDIATE OR DELAYED, W/ TISSUE HEAVY MOBILE EQUIPMENT REPAIRER, INCLUDING SUBSEQUENT EXPANSION (WRVU 18.5) performed by Andre Gimenez MD at [facility] MAIN OR PRO BREAST RECONSTRUCTION W FREE FLAP Bilateral 04/26/2017 @BREAST RECONSTRUCTION W/ FREE FLAP, SUSAN (WRVU 42.58) performed by Andre Gimenez MD at [facility] [place] PRO BREAST RECONSTRUCTION W/LATSMS D/SI FLAP WO PRSTHC IMPL Bilateral 12/12/2017 @BREAST RECONSTRUCTION W/ LAT DORSI FLAP,W/O IMPLANT, SUSAN (WRVU 23.36) performed by Andre Gimenez MD at [facility] MAIN OR PRO DEBRIDEMENT SUBCUTANEOUS TISSUE 20 SQCM/< 06/22/2017 DEBRIDEMENT SKIN AND SUBCU, BREAST (WRVU 1.01) performed by Andre Gimenez MD at [facility] MAIN OR [facility] EXPLORE PARATHYROID GLANDS N/A 11/02/2015 PARATHYROIDECTOMY OR EXPLORATION OF PARATHYROID(S) performed by Valentina Lucas MD at [facility] OR [facility] FULL THICK GRFT TRUNK <20 SQCM Bilateral 04/26/2017 FTSG, FREE, DIR CLOSE DONOR SITE, TRUNK, 20 SQ CM OR LESS (WRVU 9.15) performed by Andre Gimenez MD at [facility] OR [facility] INCISION OF LYMPH CHANNELS Left 10/18/2018 INCISION & DRAINAGE LYMPHOCELE (WRVU 6.81) performed by Andre Gimenez MD at [facility] OR [facility] IV INJ TO TEST BLOOD FLOW IN FLAP/GRAFT Left 10/18/2018 IV INJECTION, AGENT TO TEST VASC FLOW IN FLAP OR GRAFT, ENT (WRVU 1.95) performed by Andre Gimenez MD at [facility] OR [facility] MASTECTOMY, SIMPLE, COMPLETE Bilateral 04/26/2017 MASTECTOMY, SIMPLE, COMPLETE-SUSAN (WRVU 15.85) performed by Jolie Menendez MD at [facility] OR [facility] PARTIAL REMOVAL OF RIB Bilateral 04/26/2017 EXCISION OF RIB, PARTIAL (WRVU 7.26) performed by Andre Gimenez MD at [facility] OR [facility] REMOVE ARMPITS LYMPH NODES COMPLT Left 04/26/2017 LYMPHADENECTOMY, AXILLARY, COMPLETE (WRVU 13.87) performed by Jolie Menendez MD at [facility] OR [facility] REPLACE TISSUE HEAVY MOBILE EQUIPMENT REPAIRER Bilateral 12/12/2017 TISSUE HEAVY MOBILE EQUIPMENT REPAIRER REPLACEMENT, WITH PERMANENT PROSTHESIS, SUSAN (WRVU 8.01) performed by Andre Gimenez MD at [facility] MAIN OR PRO REVISION RECONSTRUCTED BREAST Left 06/22/2017 REVISION OF RECONSTRUCTED BREAST (WRVU 10.41) performed by Andre Gimenez MD at [facility] OR [facility] REVISION RECONSTRUCTED BREAST Bilateral 12/12/2017 REVISION OFRECONSTRUCTED BREAST, SUSAN (WRVU 10.41) performed by Andre Gimenez MD at [facility] MAIN OR PRO THYMECTOMY, TRANSCERVICAL N/A 11/02/2015 THYMECTOMY, TRANSCERVICAL APPROACH performed by Valentina Lucas MD at [facility] OR SHOULDER SURGERY Left UMBILICAL HERNIA REPAIR Social History Tobacco Use Smoking status: Former Types: Cigarettes Quit date: 08/07/1991 Years since quittin.9 Smokeless tobacco: Never Substance Use Topics Alcohol use: Yes Comment: socially once a month Medications Prior to Admission Medication Sig Dispense Refill Last Dose aspirin 81 mg chewable tablet Take 81 mg by mouth daily. 4 tablets per day until surgery 07/24/22 07/24/2022 clopidogreL (Plavix) 75 mg tablet Take 1 tablet by mouth daily. Start 06/26/22, prior to aneurysm procedure. 90 tablet 3 07/24/2022 MULTI-VITAMIN ORAL Take 1 tablet by mouth daily. 07/20/2022 calcium carbonate (CALCIUM 600 ORAL) Take 600 mg by mouth every other day. 07/21/2022 exemestane (Aromasin) 25 mg Tablet Take 1 tablet by mouth daily. 30 tablet 11 07/21/2022 rosuvastatin (Crestor) 10 mg Tablet TAKE 1 TABLET BY MOUTH DAILY AT BEDTIME 07/21/2022 ibuprofen (ADVIL;MOTRIN) 200 mg Tablet Take 200 mg by mouth every 6 hours as needed for Pain. Past Month dilTIAZem (CARDIZEM CD) 240 mg Capsule, Sust. Release 24 hr Take 240 mg by mouth daily. 07/21/2022 spironolactone (ALDACTONE) 25 mg Tablet Take 1 tablet by mouth daily. 90 tablet 3 07/21/2022 gabapentin (NEURONTIN) 300 mg Capsule Take 1 capsule by mouth 3 times daily. (Patient taking differently: Take 300 mg by mouth 3 times daily. One in am, two at night) 90 capsule 3 07/21/2022 losartan (COZAAR) 100 mg Tablet take 1 tablet by mouth once daily 0 07/21/2022 cholecalciferol, Vitamin D3, 125 mcg (5,000 unit) Tablet Take by mouth daily. 07/21/2022 acetaminophen (TYLENOL) 325 mg Tablet Take 2 tablets by mouth every 4 hours as needed for Pain. Past Week ferrous gluconate 324 mg (37.5 mg iron) Tablet Take 324 mg by mouth daily. 07/21/2022 fluoxetine (PROZAC) 40 mg capsule Take 40 mg by mouth daily. 07/24/2022 Stelara 45 mg/0.5 mL subcutaneous injection MAINTENANCE: INJECT 1 SYRINGE SUBCUTANEOUSLY EVERY 12 WEEKS. REFRIGERATE. DO NOT FREEZE 0.5 mL 2 More than a month valACYclovir (Valtrex) 500 mg Tablet TAKE 1 TABLET BY MOUTH TWICE DAILY FOR 3 DAYS More than a month Vital Sign Ranges: Last value Range last 24 hrs Temperature Temp: 36.5 ??C (97.7 ??F) Temp: [36.5 ??C (97.7 ??F)] Heart Rate Heart Rate: 83 Heart Rate: [61-84] Blood Pressure BP: 135/78 BP: (128-135)/(78) Respiratory Rate Resp: 17 Resp: [10-21] SpO2 SpO2: 99 % SpO2: [97 %-99 %] Art BP BP (Arterial Line): 126/72 BP (Arterial Line): (126-152)/(72-82) Labs: Recent Results (from the past 24 hour(s)) POCT Glucose Result Value Ref Range POC Glucose 113 65 - 199 mg/dL Imaging: CT Head wo contrast (07/24/2022) No acute intracranial process Physical Exam: Gen: NAD, Resp: CTAB CV: RRR no murmur/rubs Abd: obese, soft NT Neuro: A&OX3, speech clear & Fluent pupils 3mm BL, EOMI, blinks to threat BL, no facial asymmetry, strength 4/5 BL UE & LE Ext: WWP, R groin site with superficial bleeding- no palpable hematoma, palpable bilateral DP pulses. ASSESSMENT & PLAN: Wendy Sandoval is a 57 y.o. 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 # Neuro- - q1h neuro checks, VS - HOB flat x4 hours groin precautions - continue DAPT - HOB > 30 deg - analgesia: tylenol, oxycodone prn - continue home gabapentin 300mg TID # CV - - MAP goal 70-90 - maintain arterial line for close BP monitoring - continue home losartan 100mg daily & home diltiazem 240mg ER NIGHTLY # Pulm - - goal O2 sats > 92% - continue chest PT/pulm toileting - IS 10x q1h while awake # GI - - diet: sips/chips for now --> ADAT - maintain bowel reg # FEN/ - - continue IVF until tolerating full diet - daily BMP, Mg, PO4 - ICU lyte replacement protocol - d/c treviño when HOB restrictions are lifted # Heme / Oncologic - daily CBC - SCDs only for DVT ppx, hold chemoppx - continue home exemestane 25mg daily # Endo - - goal glucose 120-180 --> ISS PRN # Integumentary > hx psoriasis - home med: Stelara 45mg SQ Q12wks # ID - - for temp > 38.4 C --> UA, CXR, blood cx, sputum cx - tylenol PRN T/L/D - arterial line, PIV x 2 Code Status - History Dispo - NCCU * Marilin Patel MD - 07/24/2022 7:02 AM EDT Neurosurgery Pre-Op H&P Wendy Sandoval was seen and examined in SDP with at bedside. No interval events or changes in health status since preoperative note (see EPIC note dated 07/20/22 by Araceli Levi APRN). All questions were answered. Stable for surgery as scheduled. Has been on DAPT since 07/03. HPI: 57F with PMH of HTN, breast cancer, CKD stage III (Cr 1-2) and JACQUELYN (o CPAP) who had a screening MRAdue to family history of ruptured aneurysms and was found to have a R 2mm aneurysm proximal to the ophthalmic origin with DSA on 05/19/22 suggesting that this now 4mm aneurysm had an intradural component. Returns for flow diverting stent placement. Exam: Awake, alert, oriented x4 Speech fluent and appropriate with intact naming & repetition CN 2-12 intact, VFFTC Full strength x4 No pronator drift SILT x4 R radial and bilateral DP pulses marked ( L radial deferred d/t lymphedema of RUE from lymph node removal/mastectomy) A/P: -Proceed with surgery as planned. Marilin Patel MD 07/24/22 6:35 AM Past Medical History: Past Medical History: Diagnosis [...] IR Arteriogram Cerebral 05/19/2022 Joanna Watts MD [facility] INTERVENTIONL RAD IR DRAIN CHECK/CHANGE/REMOVE 11/20/2017 IR Drain Check/Change/Remove 11/20/2017 Marcos Dey MD [facility] INTERVENTIONL RAD IR MEDIPORT REMOVAL 01/25/2018 IR Mediport Removal 01/25/2018 Scooby Muñoz, COMMUNITY HEALTH NURSING DIRECTOR [facility] INTERVENTIONL RAD PRG EMG, LARYNX N/A 11/02/2015 FACIAL NERVE MONITORING, SETUP LARYNGEAL performed by Valentina Lucas MD at [facility] MAIN OR PRO BREAST RECONSTRUCTION IMMT/DLYD W/TISS HEAVY MOBILE EQUIPMENT REPAIRER SBSQ EXPANSION Bilateral 04/26/2017 BREAST RECONSTRUCTION, IMMEDIATE OR DELAYED, W/ TISSUE HEAVY MOBILE EQUIPMENT REPAIRER, INCLUDING SUBSEQUENT EXPANSION (WRVU 18.5) performed by Andre Gimenez MD at [facility] MAIN OR PRO BREAST RECONSTRUCTION W FREE FLAP Bilateral 04/26/2017 @BREAST RECONSTRUCTION W/ FREE FLAP, SUSAN (WRVU 42.58) performed by Andre Gimenez MD at [facility] [place] PRO BREAST RECONSTRUCTION W/LATSMS D/SI FLAP WO PRSTHC IMPL Bilateral 12/12/2017 @BREAST RECONSTRUCTION W/ LAT DORSI FLAP,W/O IMPLANT, SUSAN (WRVU 23.36) performed by Andre Gimenez MD at [facility] MAIN OR PRO DEBRIDEMENT SUBCUTANEOUS TISSUE 20 SQCM/< 06/22/2017 DEBRIDEMENT SKIN AND SUBCU, BREAST (WRVU 1.01) performed by Andre Gimenez MD at [facility] OR [facility] EXPLORE PARATHYROID GLANDS N/A 11/02/2015 PARATHYROIDECTOMY OR EXPLORATION OF PARATHYROID(S) performed by Valentina Lucas MD at [facility] OR [facility] FULL THICK GRFT TRUNK <20 SQCM Bilateral 04/26/2017 FTSG, FREE, DIR CLOSE DONOR SITE, TRUNK, 20 SQ CM OR LESS (WRVU 9.15) performed by Andre Gimenez MD at [facility] OR [facility] INCISION OF LYMPH CHANNELS Left 10/18/2018 INCISION & DRAINAGE LYMPHOCELE (WRVU 6.81) performed by Andre Gimenez MD at [facility] OR [facility] IV INJ TO TEST BLOOD FLOW IN FLAP/GRAFT Left 10/18/2018 IV INJECTION, AGENT TO TEST VASC FLOW IN FLAP OR GRAFT, ENT (WRVU 1.95) performed by Andre Gimenez MD at [facility] OR [facility] MASTECTOMY, SIMPLE, COMPLETE Bilateral 04/26/2017 MASTECTOMY, SIMPLE, COMPLETE-SUSAN (WRVU 15.85) performed by Jolie Menendez MD at [facility] OR [facility] PARTIAL REMOVAL OF RIB Bilateral 04/26/2017 EXCISION OF RIB, PARTIAL (WRVU 7.26) performed by Andre Gimenez MD at [facility] OR [facility] REMOVE ARMPITS LYMPH NODES COMPLT Left 04/26/2017 LYMPHADENECTOMY, AXILLARY, COMPLETE (WRVU 13.87) performed by Jolie Menendez MD at [facility] OR [facility] REPLACE TISSUE HEAVY MOBILE EQUIPMENT REPAIRER Bilateral 12/12/2017 TISSUE HEAVY MOBILE EQUIPMENT REPAIRER REPLACEMENT, WITH PERMANENT PROSTHESIS, SUSAN (WRVU 8.01) performed by Andre Gimenez MD at [facility] OR [facility] REVISION RECONSTRUCTED BREAST Left 06/22/2017 REVISION OF RECONSTRUCTED BREAST (WRVU 10.41) performed by Andre Gimenez MD at [facility] OR [facility] REVISION RECONSTRUCTED BREAST Bilateral 12/12/2017 REVISION OFRECONSTRUCTED BREAST, SUSAN (WRVU 10.41) performed by Andre Gimenez MD at [facility] OR [facility] THYMECTOMY, TRANSCERVICAL N/A 11/02/2015 THYMECTOMY, TRANSCERVICAL APPROACH performed by Valentina Lucas MD at [facility] OR SHOULDER SURGERY Left UMBILICAL HERNIA REPAIR Medications: No current facility-administered medications on file prior to encounter. Current Outpatient Medications on File Prior to Encounter Medication Sig Dispense Refill aspirin 81 mg chewable tablet Take 81 mg by mouth daily. 4 tablets per day until surgery 07/24/22 clopidogreL (Plavix) 75 mg tablet Take 1 tablet by mouth daily. Start 06/26/22, prior to aneurysm procedure. 90 tablet 3 MULTI-VITAMIN ORAL Take 1 tablet by mouth daily. calcium carbonate (CALCIUM 600 ORAL) Take 600 mg by mouth every other day. exemestane (Aromasin) 25 mg Tablet Take 1 tablet by mouth daily. 30 tablet 11 rosuvastatin (Crestor) 10 mg Tablet TAKE 1 TABLET BY MOUTH DAILY AT BEDTIME ibuprofen (ADVIL;MOTRIN) 200 mg Tablet Take 200 mg by mouth every 6 hours as needed for Pain. dilTIAZem (CARDIZEM CD) 240 mg Capsule, Sust. Release 24 hr Take 240 mg by mouth daily. spironolactone (ALDACTONE) 25 mg Tablet Take 1 tablet by mouth daily. 90 tablet 3 gabapentin (NEURONTIN) 300 mg Capsule Take 1 capsule by mouth 3 times daily. (Patient taking differently: Take 300 mg by mouth 3 times daily. One in am, two at night) 90 capsule 3 losartan (COZAAR) 100 mg Tablet take 1 tablet by mouth once daily 0 cholecalciferol, Vitamin D3, 125 mcg (5,000 unit) Tablet Take by mouth daily. acetaminophen (TYLENOL) 325 mg Tablet Take 2 tablets by mouth every 4 hours as needed for Pain. ferrous gluconate 324 mg (37.5 mg iron) Tablet Take 324 mg by mouth daily. fluoxetine (PROZAC) 40 mg capsule Take 40 mg by mouth daily. Stelara 45 mg/0.5 mL subcutaneous injection MAINTENANCE: INJECT 1 SYRINGE SUBCUTANEOUSLY EVERY 12 WEEKS. REFRIGERATE. DO NOT FREEZE 0.5 mL 2 valACYclovir (Valtrex) 500 mg Tablet TAKE 1 TABLET BY MOUTH TWICE DAILY FOR 3 DAYS Allergies: Allergies Allergen Reactions Penicillins Thrush PAT Penicillin Allergy Risk Assessment 07/20/2022: Moderate Risk Reaction. Patient referred to allergy clinic for pre-op testing. Zoloft [Sertraline] PSORIASIS FLARE Family History: Family History Problem Relation Age [...] Types: Cigarettes Quit date: 08/07/1991 Years since quittin.9 Smokeless tobacco: Never Vaping Use Vaping Use: [...] on file Physical Activity: Not on file Housing Stability: Not on file Review of Systems: As above, otherwise noncontributory. Vital Signs: Visit Vitals BP 128/78 Pulse 61 Temp 36.5 ??C (97.7 ??F) (Temporal) Resp 18 Ht 152.4 cm (5') Wt 76.2 kg (168 lb) SpO2 97% BMI 32.81 kg/m?? Labs: CBC: Lab Results Component Value Date/Time WBC 9.1 2022 03:01 PM HGB 13.0 2022 03:01 PM PLATELET 343 2022 03:01 PM BMP: Lab Results Component Value Date/Time NA 140 07/20/2022 11:44 AM K 4.8 07/20/2022 11:44 AM CL 105 07/20/2022 11:44 AM CO2 24 07/20/2022 11:44 AM BUN 36 (H) 07/20/2022 11:44 AM CREATININE 1.70 (H) 07/20/2022 11:44 AM Coags: No results found for: INR, PT, PTT documented in this encounter Miscellaneous Notes * Plan of Care - Enoch Lewis RN - 07/25/2022 4:11 PM EDT Patient discharge to home. IV removed, site benign. My assessment remains unchanged from my previous assessment. RN Discussed pain management with patient, pain tolerable. Patient medicated prior to discharge. Patient has all belongings and supplies needed. Patient received After Visit Summary and p rescriptions. These were reviewed, patient verbalizes understanding of AVS. All questions answered.Patient encouraged to call with questions or concerns. Patient discharged to home with family. * Initial Assessments - Rachna Odom RN - 07/25/2022 9:25 AM EDT Office of Care Management Initial Assessment Rachna Odom RN reviewed record and discussed patient with Care Team. Source of Information: Team, bedside nurse, medical record, and Patient Introduced self/reviewed role; services accepted. Spoke with patient this am. She lives with her Phillip and her son. Her Daughter lives in [place] and is planning on staying with her for a short while after discharge. 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 Reason for Hospitalization: flow diverting stent placement via [employer]. Covid Vaccination Status: 1st, 2nd & booster Last COVID test: Past medical History: Past Medical History: Diagnosis Date CKD (chronic kidney disease) stage 3, GFR 30-59 ml/min Fibrocystic breast determined by biopsy High blood pressure Hyperlipidemia Hypertension Impaired fasting glucose Malignant neoplasm of upper-outer quadrant of left breast in female, estrogen receptor positive 03/31/2017 Obstructive sleep apnea on CPAP Proteinuria Hospitalizations Within the Past 30 Days: no previous admission in last 30 days Current Decision-Making Capacity: Self If AD's have not been completed the following surrogate would be surrogate decision maker per [place] surrogate decision making law. (Only good for 180 days) Any patient receiving care in [place] must abide by [place] law. The hierarchy for surrogate decision making is: (a) Patient???s spouse or civil union partner unless there is a divorce proceeding, separation agreement, or restraining order limiting that person???s relationship with the patient. (b) Any adult son or daughter of the patient. (c) Either parent of the patient. (d) Any adult brother or sister of the patient. (e) Any adult grandchild of the patient. (f) Any grandparent of the patient. (g) Any adult aunt, uncle, niece, or nephew of the patient. (h) A close friend of the patient. (i) The agent with financial power of clinical application manager or a conservator appointed in accordance with RSA 464-A. (j) The guardian of the patient???s estate. Advance Care Planning: Attempt Cardiopulmonary Resuscitation - Inpatient <no information> -Advanced Directive: No, declines Current Coping/Education/Information Needs: denies at this time Current Functional Ability: Assistive Person Functional Status Prior to Admission: Independent Prior ADLs & IADLs: Independent with all ADLs & IADLs Home Environment: Others in the home: child(opal), adult, spouse, pet(s) (Patient lives with her , son, and 2 dogs). Current Living Arrangements: home/apartment/condo. Accessibility Concerns:Patient has 4 steps to enter her home with 1st floor living. Resource / Environmental Concerns: Resource/Environmental Concerns: none Current DME: none Home Address confirmed as: [address] [place] [phone] Social & Family Supports: All names listed below confirmed with patient as current and correct Extended Emergency Contact Information Primary Emergency Contact: Phillip Sandoval Address: [address] [place] [phone] [facility] Relation: Spouse Current Care Provided by: self Provides Primary Care For: no one Caregiver if needed: spouse, child(opal), adult Quality of Family relationships: helpful, involved, supportive Community Resources being provided currently: none Behavioral Health History: denies Substance Use/Abuse listed: Social History Tobacco Use Smoking Status Former Types: Cigarettes Quit date: 08/07/1991 Years since quittin.9 Smokeless Tobacco Never 0 No problems reported 1-2 Low level 3-5 Moderate level 6-8 Substantial level 9- 10 Severe level 0 to 7 points: Low risk 8 to 15 points: Medium risk 16 to 19 points: High risk 20 to 40 points: Addiction likely Other Pertinent/Service Specific Information: denies at this time Health/Prescription Coverage: Primary Insurance: [facility] Payor: MVP / Plan: MVP [place] / Product Type: *No Product type* / Secondary Insurance: N/A ; Prescription Coverage: Yes Preferred Pharmacy: [facility] - [place], [place] - [address] [facility] [address] [facility] [address] [facility] [address] [place] [address] [place] [address] [facility] - [place], [place] - [address] [facility] [address] [facility] [address] - [place], [place] - [address] [facility] [address] [facility] [address] Status: Patient is a : No Primary Care Provider confirmed: Trinh Coates MD [phone] Patient/Caregiver Goals of Treatment: return home when medically ready for discharge. Potential Needs for Transition of Care: none Agency Referrals: Not Applicable Transportation: no concerns Transportation Anticipated: family or friend will provide Concerns to be Addressed: denies needs/concerns at this time Assessment: Patient is admitted to neurosurgery service for flow diverting stent placement via R [employer] SALESPERSON. Plan: patient will have treviño removed, will need to work with PT/OT/FIELD GAUGER, team is hoping to discharge today. A member of the Care Management team will continue to monitor progress, follow for continuity of care and assist with transition of care planning. Rachna VIGIL RN Phone: [phone] Pager: [phone] documented in this encounter Plan of Treatment Upcoming Encounters Date Type Department Care Team (Late st Contact Info) Description 01/22/2024 10:30 AM EST Appointment Mammography/[place] [phone] Ladi Mendosa MD [facility] [address] [place]EMATOLOGY/[place] [address] 01/30/2024 11:30 AM EST Office Visit Dermatology at [facility] [address] [place] [phone] Nilda Luis MD [facility] [address] [place] [address] 02/15/2024 9:30 AM EST [place] [phone] [place] [address] documented as of this encounter Procedures Procedure Name Priority Date/Time Associated Diagnosis Comments HEMOGRAM Routine 07/25/2022 2:21 AM EDT DIFFERENTIAL, AUTOMATED Routine 07/25/2022 2:21 AM EDT HC CBC,PLT & AUTO DIFF Routine 07/25/2022 2:21 AM EDT HC PHOSPHORUS, SERUM Routine 07/25/2022 2:21 AM EDT HC MAGNESIUM, SERUM Routine 07/25/2022 2 :21 AM EDT BASIC METABOLIC PANEL (NON-FASTING) Routine 07/25/2022 2:[address] HEAD WO CONTRAST (GENERIC) STAT 07/24/2022 12:21 PM EDT POCT GLUCOSE Routine 07/24/2022 11:58 AM EDT Perm Occlusion/Embolizat ion, Percut, Reviewer Sales ([id number]) 07/24/2022 7:37 AM EDT AXEL pipeline documented in this encounter Results * CT Angiogram [place] (11/08/2022 12:15 PM EDT) Anatomical Region Laterality Modality Neck, Head Computed Tomogra phy Impressions 11/08/2022 2:44 PM EDT 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 Thank you for letting us participate in the care of this patient. ??If you are a health care provider and have any questions regarding this report, please contact the number below. ??For patients who have questions please contact the health clinical care manager that requested your imaging first. ? 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 No evidence for recurrence. Apparent filling defect within the right ICA at the horizontal/cavernous junction which may reflect dissection. Anterior communicating artery complex is normal. Vertebrobasilar system is normal. No central branch occlusion in the [place]. 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 No evidence for recurrence. Apparent filling defect within theright ICA at the horizontal/cavernous junction which may reflect dissection.Anterior communicating artery complex is normal. Vertebrobasilar system is normal.No central branch occlusion in the [place]. 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 Thank you for letting us participate in the care of this patient. If youare a health care provider and have any questions regarding this report,please contact the number below. For patients who have questions please contactthe health clinical care manager that requested your imaging first. Joanna Watts MD IMG CT ORDERABLES * (ABNORMAL) Differential, Automated (07/25/2022 2:21 AM EDT) Neutrophils % 84.0 % [facility] Neutr Abs (ANC) 11.68(H) 1.70 - 6.10 x10(3)/mc L [facility] Lymphocytes % 7.7 % [facility] Lymphocytes Abs 1.1 0.9 - 3.2 x10(3)/mc L [facility] Monocytes % 7.3 % [facility] Monocyte Abs 1.0(H) 0.3 - 0.9 x10(3)/mc L [facility] Eosinophils % 0.0 % [facility] Eosinophils Abs 0.0 0.0 - 0.4 x10(3)/mc L [facility] Basophils % 0.3 % [facility] Basophils Abs 0.0 0.0 - 0.1 x10(3)/mc L [facility] Immature Gran % 0.70 % [facility] Comment: Immature granulocytes(IG's)percentage and absolute count will include metamyelocytes, myelocytes, and promyelocytes. Blood smears from CBCs yielding IG's will be scanned manually for concordance. If this scan disagrees with the automated IG or if promyelocytes are noted, a manual differential will be performed. Nova Gran Abs 0.10(H) 0.00 - 0.04 x10(3)/mc L [facility] Blood 07/25/2022 2:21 AM EDT 07/25/2022 2:26 AM EDT Narrative Resulting Agency Comment Spec In Lab Senia CALLES HEMATOLOGY ORDERABLE S [facility] [place] [address] * (ABNORMAL) Hemogram (07/25/2022 2:21 AM EDT) WBC 13.9(H) 4.0 - 9.5 x10(3)/[facility] RBC 3.37(L) 4.00 - 5.21 x10(6)/[facility] Hemoglobin 10.5(L) 11.7 - 15.5 g/dL [facility] Hematocrit 32.0(L) 35.7 - 45.8 % [facility] MCV 95.0(H) 82.6 - 94.4 fL [facility] MCH 31.2 27.1 - 32.0 pg [facility] MCHC 32.8 31.7 - 35.0 g/dL [facility] Platelets 266 145 - 357 x10(3)/[facility] RDWSD 48.1(H) 37.0 - 46.0 [facility] RDWCV 13.8 11.5 - 14.1 % [facility] MPV 9.0 7.6 - 12.9 [facility] nRBC % Auto 0.0 % [facility] nRBC Abs Auto 0.000 0.000 - 0.000 x10(3)/mcL [facility] Blood 07/25/2022 2:21 AM EDT 07/25/2022 2:26 AM EDT Narrative Resulting Agency Comment Spec In Lab Senia CALLES HEMATOLOGY ORDERABLE S Performing Organization Address [facility]/ZIP Co de Phone Number [facility] [place] [address] * Phosphorus (07/25/2022 2:21 AM EDT) Phosphorus 2.7 2.5 - 4.5 mg/dL [facility] Blood 07/25/2022 2:21 AM EDT 07/25/2022 2:26 AM EDT Narrative Resulting Agency Comment Spec In Lab Joanna Watts MD CHEMISTRY ORDERABLE S Performing Organization Address [facility] Co de Phone Number [facility] [place] [address] * Magnesium (07/25/2022 2:21 AM EDT) Magnesium 0.74 0.69 - 1.07 mmol/L [facility] Blood 07/25/2022 2:21 AM EDT 07/25/2022 2:26 AM EDT Narrative Resulting Agency Comment Spec In Lab Joanna Watts MD CHEMISTRY ORDERABLE S Performing Organization Address [facility] Co de Phone Number [facility] [place] [address] * (ABNORMAL) Basic Metabolic Panel (non-fasting) (07/25/2022 2:21 AM EDT) Glucose Lvl 189 65 - 199 mg/dL [facility] Comment:Diabetes: >=200 mg/d L plus symptoms BUN 33(H) 8 - 18 mg/dL [facility] Creatinine 1.46(H) 0.70 - 1.20 mg/dL [facility] Sodium 141 135 - 145 mmol/L [facility] Potassium 4.2 3.5 - 5.0 mmol/L [facility] Comment: Please note: ??Patients with WBC >100,000 may have falsely elevated Potassium levels. ??For accurate Potassium quantification in these patients send serum separator tube (gold top) for subsequent determinations. ??Contact the Clinical Chemistry Laboratory if there are any questions. Chloride 112(H) 98 - 107 mmol/L [facility] CO2 18(L) 22 - 31 mmol/L [facility] Anion Gap 11 5 - 15 mmol/L [facility] Calcium 7.7(L) 8.5 - 10.5 mg/dL [facility] Estimated GFR 41(L) >=60 mL/min/1. 73 m?? [facility] [...] and symptoms in addition to eGFR. Blood 07/25/2022 2:21 AM EDT 07/25/2022 2:26 AM EDT Narrative Resulting Agency Comment Spec In Lab Joanna Watts MD CHEMISTRY ORDERABLE S [facility] [place] [address] * CT Head wo Contrast (Generic) (07/24/2022 12:21 PM EDT) Anatomical Region Laterality Modality Head Computed Tomogra phy Impressions 07/24/2022 12:27 PM EDT No acute intracranial processes. Thank you for letting us participate in the care of this patient. ??If you are a health care provider and have any questions regarding this report, please contact the number below. ??For patients who have questions please contact the health clinical care manager that requested your imaging first. ? Narrative 07/24/2022 12:27 PM EDT EXAMINATION: CT HEAD WO CONTRAST (GENERIC) CLINICAL HISTORY: Subarachnoid hemorrhage (SAH) suspected TECHNIQUE: ??CT images of the head were acquired without intravenous contrast. COMPARISON: Brain MRI 03/28/2022. FINDINGS: Ventricles/extra-axial spaces : No ventriculomegaly or extra-axial fluid collection Brain parenchyma: No acute hemorrhage or focal intra-axial lesion. No mass effect or herniation. Normal ojeda-white differentiation. Right cavernous carotid flow diverting stent identified. Extracranial structures: Normal bones, orbits, and soft tissues. Clear paranasal sinuses and mastoids. Procedure Note Mitch Infante MD - 07/24/2022 EXAMINATION: CT HEAD WO CONTRAST (GENERIC) CLINICAL HISTORY: Subarachnoid hemorrhage (SAH) suspected TECHNIQUE: CT images of the head were acquired without intravenouscontrast. COMPARISON: Brain MRI 03/28/2022. FINDINGS: Ventricles/extra-axial spaces : No ventriculomegaly or extra-axial fluid collection Brain parenchyma: No acute hemorrhage or focal intra-axial lesion. Nomass effect or herniation. Normal ojeda-white differentiation. Right cavernouscarotid flow diverting stent identified. Extracranial structures: Normal bones, orbits, and soft tissues. Clearparanasal sinuses and mastoids. IMPRESSION No acute intracranial processes. Thank you for letting us participate in the care of this patient. If youare a health care provider and have any questions regarding this report,please contact the number below. For patients who have questions please contactthe health clinical care manager that requested your imaging first. 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, estrogen receptor positive Brain aneurysm Cerebral aneurysm, nonruptured documented in this encounter Admitting Diagnoses Diagnosis Brain aneurysm Cerebral aneurysm, nonruptured documented in this encounter Administered Medications Inactive Administered Medications - up to 3 most recent administrations Medication Order MAR Action Action Date Dose Rate Site acetaminophen (Ofirmev) (1,000 mg/100 mL) infusion 1,000 mg 1,000 mg, Intravenous, at 400 mL/hr, Administer over 15 Minutes, EVERY 6 HOURS SCHEDULED, 1 dose, First dose on Sun07/24/22 at 1300, Maximum dose of acetaminophen is 4,000 mg from all sources in 24 hours. When ordered for pain, acetaminophen should be given even when other ordered pain medications are indicated. , Routine, Is ketorolac (Toradol) IV contraindicated? Yes, Can this patient tolerate oral medications or suppositories? Yes Given 07/24/2022 12:55 PM EDT 1,000 mg 400 mL/hr acetaminophen (Tylenol) tablet 975 mg 975 mg, Oral, EVERY 6 HOURS PRN, Starting on Sun07/24/22 at 2020, Until Sun07/25/22 at 1840, Pain, Headaches, Fever, Maximum dose of acetaminophen is 4,000 mg from all sources in 24 hours. When ordered for pain, acetaminophen should be given even when other ordered pain medications are indicated. , Routine aspirin chewable tablet 81 mg 81 mg, Oral, DAILY, First dose on Sun07/25/22 at 0900, Until Discontinued, Routine Given 07/25/2022 9:28 AM EDT 81 mg clopidogreL (Plavix) tablet 75 mg 75 mg, Oral, DAILY, First dose on Sun07/25/22 at 0900, Until Discontinued, Routine Given 07/25/2022 9:29 AM EDT 75 mg dilTIAZem CD (Cardizem CD) capsule 240 mg 240 mg, Oral, NIGHTLY, First dose on Sun07/24/22 at 2100, Until Discontinued, DO NOT CRUSH OR OPEN, Routine Given 07/24/2022 9:49 PM EDT 240 mg exemestane (Aromasin) tablet 25 mg 25 mg, Oral, DAILY, First dose on Sun07/25/22 at 0900, Until Discontinued, DO NOT SPLIT, CRUSH OR OPEN, Routine Given 07/25/2022 9:29 AM EDT 25 mg fentaNYL (pf) (50 mcg/mL) multi-dose injection 25 mcg 25 mcg, Intravenous, EVERY 1 HOUR PRN, 2 doses, Starting on Sun07/24/22 at 1156, Until Sun07/25/22 at 1840, Pain, Mild to moderate pain (1-5 out of 10), PACU Recovery, Routine Given 07/24/2022 12:07 PM EDT 25 mcg gabapentin (Neurontin) capsule 300 mg 300 mg, Oral, 3 TIMES DAILY, First dose on Sun07/24/22 at 1500, Until Discontinued, Routine Given 07/24/2022 9:50 PM EDT 300 mg gabapentin (Neurontin) capsule 300 mg 300 mg, Oral, ONCE, 1 dose, On Sun07/25/22 at 0130, Routine Given 07/25/2022 12:54 AM EDT 300 mg gabapentin (Neurontin) capsule 600 mg 600 mg, Oral, 3 TIMES DAILY, First dose (after last modification) on Sun07/25/22 at 0900, Until Discontinued, Routine Given 07/25/2022 9:28 AM EDT 300 mg gabapentin (Neurontin) capsule 600 mg 600 mg, Oral, 3 TIMES DAILY, First dose (after last modification) on Sun07/25/22 at 1500, Until Discontinued, Routine heparin (porcine) (1,000 units/mL) injection 3,000 Units 3,000 Units, Intra-arterial, ONCE PRN, 1 dose, Starting on Sun07/24/22 at 1154, Until Sun07/25/22 at 1840, should access be radial, For radial artery access. For use in Interventional Radiology (IR) only for procedure with direct provider supervision and verbal order., Angio/IR (Intra-Procedure), Routine lactated ringers infusion 1,000 mL, at 100 mL/hr, Intravenous, CONTINUOUS, Starting on Sun07/24/22 at 0700, Until Sun07/24/22 at 1157, Day of Surgery (Day of Procedure) New Bag 07/24/2022 10:26 AM EDT New Bag 07/24/2022 7:37 AM EDT New Bag 07/24/2022 7:17 AM EDT 1,000 mLs 100 mL/hr lidocaine (Lidoderm) 5% patch 1 patch 1 patch, Transdermal, Administer over 12 Hours, EVERY 24 HOURS, First dose on Sun07/24/22 at 1545, Until Discontinued, Apply patch(es) for 12 hours, and then remove for 12 hours., Routine Patch Applied 07/24/2022 4:35 PM EDT 1 patch 20-Other (document in comment section) losartan (Cozaar) tablet 100 mg 100 mg, Oral, DAILY, First dose on Sun07/25/22 at 0900, Until Discontinued, Routine Given 07/25/2022 9:29 AM EDT 100 mg magnesium sulfate 2 g in sterile water 50 mL infusion 2 g, Intravenous, ONCE, 1 dose, On Sun07/25/22 at 0345, Administer over 120 Minutes Rate/Dose Verify 07/25/2022 6:00 AM EDT 25 mL/hr New Bag 07/25/2022 4:52 AM EDT 2 g 25 mL/hr niCARdipine (Cardene) (0.2 mg/mL) in sodium chloride 200 mL infusion 0-15 mg/hr (0-75 mL/hr), Intravenous, CONTINUOUS, Starting on Sun07/24/22 at 1330, Until Sun07/25/22 at 0627, Titrate to MAP greater than 70 and less than 90 mmHg. Start at 5 mg/hour, titrate to maintain target SBP, adjust infusion rate by 2.5 mg/hour every 5 minutes to a maximum of 15 mg/hour. Rotate IV site every 12 hours, Routine Rate/Dose Verify 07/25/2022 6:00 AM EDT 2.5 mg/hr 12.5 mL/hr Rate/Dose Verify 07/25/2022 4:00 AM EDT 2.5 mg/hr 12.5 mL /hr Rate/Dose Verify 07/24/2022 11:46 PM EDT 2.5 mg/hr 12.5 m L/hr ondansetron (pf) (Zofran) (2 mg/mL) injection 4 mg 4 mg, Intravenous, EVERY 8 HOURS PRN, Starting on Sun07/24/22 at 1230, Until Sun07/25/22 at 1840, Nausea Given 07/24/2022 12:00 PM EDT 4 mg ondansetron (Zofran) 4 mg/2 mL injection 1 dose, Starting on Sun07/24/22 at 1149, Until Sun07/24/22 at 1200, SO KOO: cabinet override oxyCODONE (Roxicodone) tablet 5 mg 5 mg, Oral, EVERY 4 HOURS PRN, Starting on Sun07/24/22 at 1251, Until Sun07/25/22 at 1840, Pain, Routine prochlorperazine (Compazine) (5 mg/mL) injection 5 mg 5 mg, Intravenous, EVERY 30 MIN PRN, 2 doses, Starting on Sun07/24/22 at 1154, Until Sun07/25/22 at 1840, Nausea, Vomiting, If multiple antiemetics ordered, use ondansetron first and if ineffective use prochlorperazine or haloperidoL second, PACU Recovery, Routine rosuvastatin (Crestor) tablet 10 mg 10 mg, Oral, EVERY EVENING, First dose on Sun07/24/22 at 1700, Until Discontinued, Routine sodium chloride 0.9% infusion 100 mL/hr, Intravenous, CONTINUOUS, Starting on Sun07/24/22 at 1245, Until Sun07/25/22 at 1517, PACU Recovery New Bag 07/25/2022 8:08 AM EDT 100 mL/hr 100 mL/hr Rate/Dose Verify 07/25/2022 6:00 AM EDT 100 mL/hr 100 mL/ hr Rate/Dose Verify 07/25/2022 4:00 AM EDT 100 mL/hr 100 mL/ hr trimethobenzamide (Tigan) (100 mg/mL) injection 200 mg 200 mg, Intramuscular, EVERY 8 HOURS PRN, Starting on Sun07/24/22 at 1230, Until Sun07/25/22 at 1840, Nausea, Routine documented in this encounter Active and Recently Administered Medications Times are shown in EDT. Scheduled Medication Order 07/23/2022 07/24/2022 07/25/2022 acetaminophen (Ofirmev) (1,000 mg/100 mL) infusion 1,000 mg (COMPLETED) 1,000 mg, Intravenous, at 400 mL/hr, Administer over 15 Minutes, EVERY 6 HOURS SCHEDULED, 1 dose, First dose on Sun07/24/22 at 1300, Maximum dose of acetaminophen is 4,000 mg from all sources in 24 hours. When ordered for pain, acetaminophen should be given even when other ordered pain medications are indicated. , Routine, Is ketorolac (Toradol) IV contraindicated? Yes, Can this patient tolerate oral medications or suppositories? Yes 1255 (Given - Provider: Usman Barrera RN) aspirin chewable tablet 81 mg 81 mg, Oral, DAILY, First dose on Sun07/25/22 at 0900, Until Discontinued, Routine 927 (Given - Provid er: Enoch Lewis RN) clopidogreL (Plavix) tablet 75 mg 75 mg, Oral, DAILY, First dose on Sun07/25/22 at 0900, Until Discontinued, Routine 928 (Given - Provid er: Enoch Lewis RN) dilTIAZem CD (Cardizem CD) capsule 240 mg 240 mg, Oral, NIGHTLY, First dose on Sun07/24/22 at 2100, Until Discontinued, DO NOT CRUSH OR OPEN, Routine 3613 (Given - Provider: Addie Palomino RN)2346 (IV Pause - Provider: Morena Shanks RN) exemestane (Aromasin) tablet 25 mg 25 mg, Oral, DAILY, First dose on Sun07/25/22 at 0900, Until Discontinued, DO NOT SPLIT, CRUSH OR OPEN, Routine 0929 (Given - Provid er: Enoch Lewis RN) gabapentin (Neurontin) capsule 300 mg (CANCELED) 300 mg, Oral, 3 TIMES DAILY, First dose on Sun07/24/22 at 1500, Until Discontinued, Routine 1500 (Not Given - Provider: Usman Barrera RN - Reason: See comment - Comment: HOB flat not safe to drink)2150 (Given - Provider: Addie Palomino RN) gabapentin (Neurontin) capsule 300 mg (COMPLETED) 300 mg, Oral, ONCE, 1 dose, On Sun07/25/22 at 0130, Routine 0054 (Given - Provid er: Addie Palomino RN) gabapentin (Neurontin) capsule 600 mg (CANCELED) 600 mg, Oral, 3 TIMES DAILY, First dose (after last modification) on Sun07/25/22 at 0900, Until Discontinued, Routine 0928 (Given - Provid er: Enoch Lewis RN - Comment: PT only takes 300mg in AM, 600 in PM) gabapentin (Neurontin) capsule 600 mg 600 mg, Oral, 3 TIMES DAILY, First dose (after last modification) on Sun07/25/22 at 1500, Until Discontinued, Routine 1500 (Not Given - Provider: Enoch Lewis RN - Reason: Patient/family refused - Comment: PT takes med 2x a day, AM-300mg, 2100-600mg) lidocaine (Lidoderm) 5% patch 1 patch 1 patch, Transdermal, Administer over 12 Hours, EVERY 24 HOURS, First dose on Sun07/24/22 at 1545, Until Discontinued, Apply patch(es) for 12 hours, and then remove for 12 hours., Routine 1635 (Patch Applied - Provider: Usman Barrera RN - Comment: neck) 0435 (Patch Removed - Provider: Addie Palomino RN)1545 (Due) losartan (Cozaar) tablet 100 mg 100 mg, Oral, DAILY, First dose on Sun07/25/22 at 0900, Until Discontinued, Routine 0929 (Given - Provid er: Enoch Lewis RN) magnesium sulfate 2 g in sterile water 50 mL infusion (COMPLETED) 2 g, Intravenous, ONCE, 1 dose, On Sun07/25/22 at 0345, Administer over 120 Minutes 0452 (New Bag - Provider: Addie Palomino RN)0600 (Rate/Dose Verify - Provider: Morena Shanks, JENNYFER)0652 (Stopped - Provider: Morena Shanks RN) rosuvastatin (Crestor) tablet 10 mg 10 mg, Oral, EVERY EVENING, First dose on Sun07/24/22 at 1700, Until Discontinued, Routine 1700 (Not Given - Provider: Usman Barrera RN - Reason: See comment - Comment: HOB flat) sodium chloride 0.9% 500 mL IV bolus (COMPLETED) Intravenous, ONCE, 1 dose, On Sun07/24/22 at 0700, Please administer prior to Angio case on 07/24/22 0732 (New Bag - Provider: Juan Cho CRNA) Continuous Medication Order 07/23/2022 07/24/2022 07/25/2022 lactated ringers infusion (CANCELED) 1,000 mL, at 100 mL/hr, Intravenous, CONTINUOUS, Starting on Sun07/24/22 at 0700, Until Sun07/24/22 at 1157, Day of Surgery (Day of Procedure) 0717 (New Bag - Provider: Chuyita Denis RN)0736 (Paused - Provider: Juan Cho CRNA - Comment: Switch to gravity)0737 (New Bag - Provider: Juan Cho CRNA)1026 (New Bag - Provider: Juan Cho CRNA)1136 (Anesthesia Volume Adjustment - Provider: Juan Cho CRNA)1200 (Stopped - Provider: Usman Barrera RN - Comment: d/c'd prior to arrival to ICU) niCARdipine (Cardene) (0.2 mg/mL) in sodium chloride 200 mL infusion (CANCELED) 0-15 mg/hr (0-75 mL/hr), Intravenous, CONTINUOUS, Starting on Sun07/24/22 at 1330, Until 6/6/23 at 0627, Titrate to MAP greater than 70 and less than 90 mmHg. Start at 5 mg/hour, titrate to maintain target SBP, adjust infusion rate by 2.5 mg/hour every 5 minutes to a maximum of 15 mg/hour. Rotate IV site every 12 hours, Routine 1242 (New Bag - Provider: Usman Barrera, RN)1255 (Rate/Dose Change - Provider: Usman Barrera, RN)1300 (Rate/Dose Change - Provider: Usman Barrera RN)1310 (Rate/Dose Change - Provider: Usman Barrera, RN)1320 (Stopped - Provider: Usman Barrera RN)1600 (Restarted - Provider: Usman Barrera, RN)1610 (Rate/Dose Change - Provider: Usman Barrera, RN)1700 (Rate/Dose Change - Provider: Usman Barrera RN)1935 (Rate/Dose Verify - Provider: Morena Shanks RN)2200 (Rate/Dose Verify - Provider: Morena Shanks RN)2346 (Rate/Dose Verify - Provider: Morena Shanks RN) 0400 (Rate/Dose Verify - Provider: Morena Shanks RN)0600 (Rate/Dose Verify - Provider: Morena Shanks RN)0627 (Stopped - Provider: Morena Shanks RN) sodium chloride 0.9% infusion (CANCELED) 100 mL/hr, Intravenous, CONTINUOUS, Starting on Sun07/24/22 at 1245, Until Sun07/25/22 at 1517, PACU Recovery 1239 (New Bag - Provider: Usman Barrera RN)1935 (Rate/Dose Verify - Provider: Morena Shanks RN)2200 (Rate/Dose Verify - Provider: Morena Shanks RN)2346 (Rate/Dose Verify - Provider: Morena Shanks RN) 0400 (Rate/Dose Verify - Provider: Morena Shanks RN)0600 (Rate/Dose Verify - Provider: Morena Shanks RN)0808 (New Bag - Provider: Sumi Vela, JENNYFER)1150 (Stopped - Provider: Sumi Vela, JENNYFER) PRN Medication Order 07/23/2022 07/24/2022 07/25/2022 acetaminophen (Tylenol) tablet 975 mg 975 mg, Oral, EVERY 6 HOURS PRN, Starting on Sun07/24/22 at 2020, Until Sun07/25/22 at 1840, Pain, Headaches, Fever, Maximum dose of acetaminophen is 4,000 mg from all sources in 24 hours. When ordered for pain, acetaminophen should be given even when other ordered pain medications are indicated. , Routine fentaNYL (pf) (50 mcg/mL) multi-dose injection 25 mcg(Linked Group 1) 25 mcg, Intravenous, EVERY 1 HOUR PRN, 2 doses, Starting on Sun07/24/22 at 1156, Until Sun07/25/22 at 1840, Pain, Mild to moderate pain (1-5 out of 10), PACU Recovery, Routine 1207 (Given - Provider: Lou Reed RN) heparin (porcine) (1,000 units/mL) injection 3,000 Units 3,000 Units, Intra-arterial, ONCE PRN, 1 dose, Starting on Sun07/24/22 at 1154, Until Sun07/25/22 at 1840, should access be radial, For radial artery access. For use in Interventional Radiology (IR) only for procedure with direct provider supervision and verbal order., Angio/IR (Intra-Procedure), Routine ondansetron (pf) (Zofran) (2 mg/mL) injection 4 mg 4 mg, Intravenous, EVERY 8 HOURS PRN, Starting on Sun07/24/22 at 1230, Until Sun07/25/22 at 1840, Nausea 1200 (Given - Provider: Usman Barrera RN) oxyCODONE (Roxicodone) tablet 5 mg 5 mg, Oral, EVERY 4 HOURS PRN, Starting on Sun07/24/22 at 1251, Until Sun07/25/22 at 1840, Pain, Routine prochlorperazine (Compazine) (5 mg/mL) injection 5 mg 5 mg, Intravenous, EVERY 30 MIN PRN, 2 doses, Starting on Sun07/24/22 at 1154, Until Sun07/25/22 at 1840, Nausea, Vomiting, If multiple antiemetics ordered, use ondansetron first and if ineffective use prochlorperazine or haloperidoL second, PACU Recovery, Routine trimethobenzamide (Tigan) (100 mg/mL) injection 200 mg 200 mg, Intramuscular, EVERY 8 HOURS PRN, Starting on Sun07/24/22 at 1230, Until Sun07/25/22 at 1840, Nausea, Routine Linked Groups Order Group 1: fentaNYL (pf) (50 mcg/mL) multi-dose injection 25 mcgJump to med 25 mcg, Intravenous, EVERY 1 HOUR PRN, 2 doses, Starting on Sun07/24/22 at 1156, Until Sun07/25/22 at 1840, Pain, Mild to moderate pain (1-5 out of 10), PACU Recovery, Routine documented in this encounter Care Teams Property Specialist Relationship Specialty Start Date End Date Trinh Coates MD [facility] [address] [place] [address] PCP - General 01/11/10 documented as of this encounter
--- OUTSIDE RECORDS SUMMARY | 2023-09-07 11:24 | XMS_ITS | Encounter Summary ---
Author Organization [facility] [place] [address] Care Team Providers Care Player Development Manager Name Role Phone Trinh Coates MD Primary Care Provider [phone] Reason for Visit * Reason Comments Specialty Pharmacy Review Encounter Details Date Type Department Care Team (Late st Contact Info) Description 09/26/2022 Specialty [place] [phone] Mike Cavazos, [facility] Social History Tobacco Use Types Packs/Day [...] encounter Progress Notes * Mike Cavazos - 09/26/2022 11:59 PM EDT The [facility] has completed a benefits investigation for Wendy Sandoval to review their eligibility to fill at [facility]. Per patient's medication list they are prescribed STELARA 45 MG/0.5 ML and the medication is not able to be filled at the [facility]. At this time insurance mandates this medication must be filled through [facility]. documented in this encounter Plan of Treatment Upcoming Encounters Date Type Department Care Team (Late st Contact Info) Description 01/22/2024 10:30 AM EST Appointment Mammography/DXA at [place] [phone] Ladi Mendosa MD [facility] HEMATOLOGY/[place] [address] 01/30/2024 11:30 AM EST Office Visit Dermatology at [place] [address] [place] [phone] Nilda Luis MD [facility] [place] [address] 02/15/2024 9:30 AM EST [place] [phone] [place] [address] documented as of this encounter Visit Diagnoses Not on filedocumented in this encounter Care Teams Player Development Manager Relationship Specialty Start Date End Date Trinh Coates MD [facility] [address] [place] [address] PCP - General 01/11/10 documented as of this encounter
--- OUTSIDE RECORDS SUMMARY | 2023-09-07 11:24 | XMS_ITS | Encounter Summary ---
Author Organization [facility] [place] [address] Care Team Providers Care Bulldozer Operator Name Role Phone Trinh Coates MD Primary Care Provider [phone] Encounter Details Date Type Department Care Team (Latest Contact Info) Description 01/24/2023 7:33 AM EST - 01/24/2023 11:59 PM [facility] [place] [phone] Discharge Disposition: Home Social History Tobacco Use [...] DR tablet 1 CAP daily 03/27/2014 024 prasterone, dhea, (Intrarosa) 6.5 mg InsertIndications:Vagin al dryness, menopausal Place 6.5 mg vaginally daily. 30 each 6 11/10/2022 05/15/2023 clopidogreL (Plavix) 75 mg tablet Take 1 tablet by mouth daily. 90 tablet 3 07/26/2022 01/31/2023 MULTI-VITAMIN ORAL Take 1 tablet by mouth daily. 05/15/2023 Stelara 45 mg/0.5 mL subcutaneous injectionIndications:Ps oriasis MAINTENANCE: INJECT 1 SYRINGE SUBCUTANEOUSLY EVERY 12 WEEKS. REFRIGERATE. DO NOT FREEZE 0.5 mL 2 05/16/2022 01/30/2023 documented as of this encounter Plan of Treatment Upcoming Encounters Date Type Department Care Team (Late st Contact Info) Description 01/22/2024 10:30 AM EST Appointment Mammography/[place] [phone] Ladi Mendosa MD [facility] HEMATOLOGY/[place] [address] 01/30/2024 11:30 AM EST Office Visit Dermatology at [address] [phone] Nilda Luis MD [facility] DR LIDIA [place] [address] 02/15/2024 9:30 AM EST Appointment [place] [phone] [place] [address] documented as of this encounter Visit Diagnoses Not on filedocumented in this encounter Care Teams Bulldozer Operator Relationship Specialty Start Date End Date Trinh Coates MD [facility] [address] [place] [address] PCP - General 01/11/10 documented as of this encounter
--- OUTSIDE RECORDS SUMMARY | 2023-09-07 11:24 | XMS_ITS | Encounter Summary ---
Author Organization [facility]ly [facility], Later [facility] Address [facility] [place] [address] Care Team Providers Care Shagger Name Role Phone Trinh Coates MD Primary Care Provider [phone] Reason for Visit * Reason Comments Annual Exam Encounter Details Date Type Department Care Team (Late st Contact Info) Description 11/10/2022 10:40 AM EDT Office Visit Obstetrics [place] [address] [place] [address] Irritation of vulva; Cervical cancer screening; Vaginal dryness, menopausal; Dysuria; Encounter for gynecological examination with abnormal finding Social History Tobacco Use Types Packs/Day Years [...] Sign Reading Time Taken Comments Blood Pressure 136/84 11/10/2022 10:35 AM EDT Pulse 52 11/10/2022 10:35 AM EDT Temperature 36.6 ??C (97.8 ??F) 11/10/2022 10:35 AM E DT Respiratory Rate 18 11/10/2022 10:35 AM EDT Oxygen Saturation 98% 11/10/2022 10:35 AM EDT Inhaled Oxygen Concentration - - Weight 81.2 kg (179 lb 1.6 oz) 11/10/2022 10:35 AM EDT Height 152.4 cm (5') 11/10/2022 10:35 AM EDT Body Mass Index 34.98 11/10/2022 10:35 AM EDT documented in this encounter Progress Notes * Abby Phoenix CNM - 11/10/2022 10:40 AM EDT Reason for Visit: Wendy Sandoval is a 57 y.o. No obstetric history on file. postmenopausal female who presents for annual SEEING EYE DOG TRAINER exam. Wendy Sandoval would like to discuss today: needs a pap; also has been having some pain with urination or a different sensation she had a CT with contrast earlier this week Med hx significant for: Breast cancer survivor- currently taking Exemestane R ICA Aneurysm- doing well, on ASA and Plavix Song Lyricist Health Maintenance: - Menopausal at age: early 50s - How was your menopause transition: went through breast cancer treatment at same time so unsure really how it was, not able to focus on it - HRT: NO - Vaginal bleeding since menopause: NO - Date of last pap smear: about 5 yrs ago - Results of last pap smear, if known: Normal per Wendy - Personal history of prior abnormal pap smear?: yes, a long time ago - Pregnancies: - Deliveries: - SEEING EYE DOG TRAINER surgeries: just 2 c-sections - Hx of Polyps or Fibroids: n - Hx of DVT/Blood clot:NO Sexual Health: - Currently having sex of any kind? 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 declined - Sexual questions/concerns: vaginal dryness Song Lyricist Focused ROS (bold indicates positive): - Breast concerns: masses, skin changes, pain or nipple discharge - Urinary concerns: dysuria, urinary frequency, urgency, nocturia, enuresis, hematuria or incontinence - Sexual concerns: dyspareunia, post-coital bleeding, decreased libido, or inability to achieve orgasm - Gynecologic concerns: abnormal vaginal discharge or odor, vulvar/vaginal itching, burning or irritation, pelvic pain - Menopausal concerns: hot flashes, night sweats, vaginal dryness, vaginal bleeding, sleep disturbance, mood changes, weight concerns Social History: - 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 aspirin 81 mg chewable tablet Take 81 mg by mouth daily. 30 tablet 3 clopidogreL (Plavix) 75 mg tablet Take 1 tablet by mouth daily. 90 tablet 3 gabapentin (Neurontin) 300 mg capsule One in am, two at night MULTI-VITAMIN ORAL Take 1 tablet by mouth daily. Stelara 45 mg/0.5 mL subcutaneous injection MAINTENANCE: INJECT 1 SYRINGE SUBCUTANEOUSLY EVERY 12 WEEKS. REFRIGERATE. DO NOT FREEZE 0.5 mL 2 calcium carbonate (CALCIUM 600 ORAL) Take 600 [...] capsule Take 40 mg by mouth daily. fluorouraciL (EFUDEX) 5 % Cream Apply a thin layer to affected areas on the right upper lip twice daily (morning and night) as tolerated for 2 weeks. CAUTION: THIS MEDICATION IS TOXIC TO PETS. (Patient not taking: Reported on 11/10/2022) 40 g 0 No current facility-administered medications on file prior to visit. Allergies Allergen Reactions Penicillins Thrush PAT Penicillin Allergy Risk Assessment 07/20/2022: Moderate Risk Reaction. Patient referred to allergy clinic for pre-op testing. Other Reaction(s): Thrush Sertraline PSORIASIS FLARE Other Reaction(s): Skin Rash There is no immunization history on file for this patient. Past Medical History: Diagnosis Date CKD (chronic [...] IR Arteriogram Cerebral 05/19/2022 Joanna Watts MD [facility] INTERVENTIONL RAD IR DRAIN CHECK/CHANGE/REMOVE 11/20/2017 IR Drain Check/Change/Remove 11/20/2017 Marcos Dey MD [facility] INTERVENTIONL RAD IR EMBOLIZATION CEREBRAL 07/24/2022 IR Embolization Cerebral 07/24/2022 Joanna Watts MD [facility] INTERVENTIONL RAD IR MEDIPORT REMOVAL 01/25/2018 IR Mediport Removal 01/25/2018 Scooby Muñoz, CHEF INSTRUCTOR [facility] INTERVENTIONL RAD PRG EMG, LARYNX N/A 11/02/2015 FACIAL NERVE MONITORING, SETUP LARYNGEAL performed by Valentina Lucas MD at [facility] MAIN OR PRO BREAST RECONSTRUCTION IMMT/DLYD W/TISS INTELLIGENCE CHIEF SBSQ EXPANSION Bilateral 04/26/2017 BREAST RECONSTRUCTION, IMMEDIATE OR DELAYED, W/ TISSUE INTELLIGENCE CHIEF, INCLUDING SUBSEQUENT EXPANSION (WRVU 18.5) performed by Andre Gimenez MD at [facility] MAIN OR PRO BREAST RECONSTRUCTION W FREE FLAP Bilateral 04/26/2017 @BREAST RECONSTRUCTION W/ FREE FLAP, SUSAN (WRVU 42.58) performed by Andre Gimenez MD at [facility] LLOYD PRO BREAST RECONSTRUCTION W/LATSMS D/SI FLAP WO PRSTHC IMPL Bilateral 12/12/2017 @BREAST RECONSTRUCTION W/ LAT DORSI FLAP,W/O IMPLANT, SUSAN (WRVU 23.36) performed by Andre Gimenez MD at [facility] MAIN OR PRO DEBRIDEMENT SUBCUTANEOUS TISSUE 20 SQCM/< 06/22/2017 DEBRIDEMENT SKIN AND SUBCU, BREAST (WRVU 1.01) performed by Andre Gimenez MD at [facility] OR [facility] EXPLORE PARATHYROID GLANDS N/A 11/02/2015 PARATHYROIDECTOMY OR EXPLORATION OF PARATHYROID(S) performed by Valentina Lucas MD at [facility] OR [facility] FULL THICK GRFT TRUNK <20 SQCM Bilateral 04/26/2017 FTSG, FREE, DIR CLOSE DONOR SITE, TRUNK, 20 SQ CM OR LESS (WRVU 9.15) performed by Andre Gimenez MD at [facility] OR [facility] INCISION OF LYMPH CHANNELS Left 10/18/2018 INCISION & DRAINAGE LYMPHOCELE (WRVU 6.81) performed by Andre Gimenez MD at [facility] OR [facility] IV INJ TO TEST BLOOD FLOW IN FLAP/GRAFT Left 10/18/2018 IV INJECTION, AGENT TO TEST VASC FLOW IN FLAP OR GRAFT, ENT (WRVU 1.95) performed by Andre Gimenez MD at [facility] OR [facility] MASTECTOMY, SIMPLE, COMPLETE Bilateral 04/26/2017 MASTECTOMY, SIMPLE, COMPLETE-SUSAN (WRVU 15.85) performed by Jolie Menendez MD at [facility] OR [facility] PARTIAL REMOVAL OF RIB Bilateral 04/26/2017 EXCISION OF RIB, PARTIAL (WRVU 7.26) performed by Andre Gimenez MD at [facility] OR [facility] PERM OCCLUSION/EMBOLIZATION, PERCUT, MALTED MILK MIXER N/A 07/24/2022 @TRANSCATHETER OCCLUSION/EMBOLIZATION FOR TUMOR DESTRUCTION (WRVU 20.12) performed by Joanna Watts MD at [facility] REMOVE ARMPITS LYMPH NODES COMPLT Left 04/26/2017 LYMPHADENECTOMY, AXILLARY, COMPLETE (WRVU 13.87) performed by Jolie Menendez MD at [facility] OR [facility] REPLACE TISSUE INTELLIGENCE CHIEF Bilateral 12/12/2017 TISSUE INTELLIGENCE CHIEF REPLACEMENT, WITH PERMANENT PROSTHESIS, SUSAN (WRVU 8.01) performed by Andre Gimenez MD at [facility] OR [facility] REVISION RECONSTRUCTED BREAST Left 06/22/2017 REVISION OF RECONSTRUCTED BREAST (WRVU 10.41) performed by Adnre Gimenez MD at [facility] OR [facility] REVISION RECONSTRUCTED BREAST Bilateral 12/12/2017 REVISION OFRECONSTRUCTED BREAST, SUSAN (WRVU 10.41) performed by Andre Gimenez MD at [facility] OR PRO THYMECTOMY, TRANSCERVICAL N/A 11/02/2015 THYMECTOMY, TRANSCERVICAL APPROACH performed by Valentina Lucas MD at [facility] MAIN OR SHOULDER SURGERY Left UMBILICAL [...] Stomach Cancer Maternal Cousin 57 Social History Socioeconomic History Marital status: Spouse name: Not on file Number of children: Not on file Years of education: Not on file Highest education level: Not on file Occupational History Not on file Tobacco Use Smoking status: Former Types: Cigarettes Quit date: 08/07/1991 Years since quittin.2 Smokeless tobacco: Never Vaping Use Vaping Use: [...] on file Housing Stability: Not on file ROS: Constitutional: No fevers, chills, weight loss, fatigue. HEENT: No visual changes, hearing loss, epistaxis, or rhinorrhea. Cardio: No Chest pain, palpitations, angina, dyspnea, shortness of breath. Resp: No wheeze\ing, cough, or sputum production. Abdomen/GI: No abdominal pain, nausea, vomiting, GERD, constipation, diarrhea, blood in stool. : No dysuria, abnormal discharge, lesions, itching, or irritation. Musculoskeletal: No changes in ROM, no joint swelling, sudden weakness. Skin: No rashes or discoloration. Psych:No sadness, depression, anxietyor suicidal ideation. Neuro: No seizures, HODGES, syncope, numbness or change in balance PE: BP 136/84 Pulse 52 Temp 36.6 ??C (97.8 ??F) (Temporal) Resp 18 Ht 152.4 cm (5') Wt 81.2 kg (179 lb 1.6 oz) SpO2 98% BMI 34.98 kg/m?? General - A&O x 3. Pleasant with no apparent distress. Breasts - No dominant masses, nipple discharge, or retraction. Pelvic exam External Genitalia - No lesions, discharge, or erythema, normal hair pattern Vagina - pale pink with atrophic changes, no lesions Left vulva- slightly demarcated area of slightly pink, raised area of skin Cervix - Neg CMT, without lesions or abnormal discharge Uterus - normal size, non-tender, mobile Adnexa - non-tender, no palpable masses Business Insurance Agent present for exam Assessment/ Plan: Healthy 57 y.o. 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 Pap/HPV today Vulvar psoriasis or LS?- plan clobetasol steroid ointment scant amount twice a day and then daily when itching improves. RTC for f/u in 6-8 wks, if not improved plan vulvar bx. Dysuria- +leuks, nitrates and blood on urine dip, will send in Bactrim. She also requests yeast meds- will send in Diflucan. Urine cx as well. Genitourinary symptoms of menopause (GSM)- started DHEA (prasterone) nightly suppositories for vaginal dryness. Declined vaginal estrogen due to recent breast cancer Breast screening risk reviewed. Mammogram yearly Up to date on health maintenance I recommend for all patients to follow up with primary care provider for age and disease specific screenings Return for pelvic/breast exam in 1-2 years or as needed Preventative recommendations for this patient include: BSE Regular exercise Healthy diet Abby Phoenix CNM documented in this encounter Plan of Treatment Upcoming Encounters Date Type Department Care Team (Late st Contact Info) Description 01/22/2024 10:30 AM EST Appointment Mammography/[place] [phone] Ladi Mendosa MD [facility] HEMATOLOGY/[place] [address] 01/30/2024 11:30 AM EST Office Visit Dermatology at [facility] [address] [place] [phone] Nilda Luis MD [facility] [address] [place] [address] 02/15/2024 9:30 AM EST [place] [phone] [place] [address] documented as of this encounter Procedures Procedure Name Priority Date/Time Associated Diagnosis Comments HPV Routine 11/10/2022 11:30 AM EDT SEEING EYE DOG TRAINER CYTOLOGY INTERPRETATION Routine 11/10/2022 11:30 AM EDT SEEING EYE DOG TRAINER CYTOLOGY FINAL REPORT Routine 11/10/2022 11:30 AM EDT CYTOPATHOLOGY GYNECOLOGICAL Routine 11/10/2022 11:30 AM EDT Cervical cancer screening URINALYSIS MICROSCOPIC EXAM Routine 11/10/2022 10:40 AM EDT URINALYSIS WITH REFLEX CULTURE Routine 11/10/2022 10:40 AM EDT HC FUNGUS CULTURE, MISC SOURCE Routine 11/10/2022 10:40 AM EDT Irritation of vulva URINE CULTURE Routine 11/10/2022 10:40 AM EDT POCT URINE DIPSTICK Routine 11/10/2022 Dysuria documented in this encounter Results * SEEING EYE DOG TRAINER Cytology Interpretation (11/10/2022 11:30 AM EDT) Song Lyricist Cytology Interpretation [facility] Comment:Song Lyricist Cytology Final R eport Song Lyricist Cytology Comment Present [facility] Endocervical Component Present [facility] AP Specimen 11/10/2022 11:3 0 AM EDT 11/27/2022 12:15 PM EDT Abby MEANSM PATHOLOGY/CYTOLO GY ORDERABLES [facility] [place] [address] * Song Lyricist Cytology Final Report (11/10/2022 11:30 AM EDT) Song Lyricist Cytology Final Report [id number] ? Location: 5L The signing pathologist has (i) examined the relevant preparation(s) for the specimen(s) and (ii) rendered or confirmed the diagnosis(es). . ? Song Lyricist Final DIAGNOSIS Normal Negative for intraepithelial lesion or malignancy (NILM). For consensus guidelines for the management of cervical cancer screening test results, please see: ?? [email or web address] . Electronically signed by: ?Bk CARL(ASCP)Jillian Verified: ??11/27/2022 12:15 ??Community Administrator Performed at: ??-[facility] Dept. of Pathology, [place] [address] [place] Filler: Yoselin Pimentel MD, FCAP, ??CLIA Certificate: [id number] DISCUSSION Shift in faheem suggestive of bacterial [...] Clinical Genomics and Advanced Technology (CGAT) at [facility]. ? - Dave Arizmendi, PhD, [facility], Director-CGAT STATEMENT OF ADEQUACY Specimen submitted is satisfactory. Endocervical component present. CLINICAL INFORMATION HPV Option: ?Concurrent HPV and Pap CT/NG Option: ?No Preparation: ? Liquid based Pap Specimen Source: ? Cervical/Endocervi kee LMP: ? postmenopause Hysterectomy: ?No : ?No : ?No I.U.D.: ?No Pelvic Radiation: ?No Hist Abnl Pap/Biopsy: ?Yes, history of previous abnormal Pap Prior SEEING EYE DOG TRAINER Therapy: ? No . CLINICAL INFORMATION Hist of HPV Vaccine: ? No ICD Diagnosis: ? Z12.4 Encounter for screening for malignant neoplasm of cervix Clinical Data, Significant Therapy and Clinical Impression ?? : ?_ This Pap Test has been evaluated with the assistance of the ThinPrep Pap Test Imaging System. Note: The Pap test is a screening test for cervical cancer with an inherent false-negative rate dependent upon several variables. For further information please contact the [facility]. Reference: Kalyan RODRIGUEZ. Pole Peeler of Pap Smear Results. In: Shaggy BS, Laci HH, ed. The Pap Smear. [facility] [place]: Adebayo, 2002: 71-77. [facility] 11/10/2022 11:3 0 AM EDT Abby MEANS PATHOLOGY/CYTOLO GY ORDERABLES Performing Organization Address [facility]/[place] [address] * HPV (11/10/2022 11:30 AM EDT) HPV 16 NEGATIVE NEGATIVE [facility] HPV 18 NEGATIVE NEGATIVE [facility] HPV Other HR NEGATIVE NEGATIVE [facility] HPV Interpretation See Comment [facility] Comment: NEGATIVE for high-risk HPV [...] CNM PATHOLOGY/CYTOLO GY ORDERABLES Performing Organization Address City/[facility]/ZIP Co de Phone Number [facility] [place] [address] * Cytopathology Gynecological (11/10/2022 11:30 AM EDT) AP Specimen 11/10/2022 11:3 0 AM EDT 11/10/2022 11:30 AM EDT Narrative [facility] - 11/10/2022 11:30 AM EDT Specimen requisition ordered. ??Separate Pathology report to follow Abby Phoenix CNM PATHOLOGY/CYTOLO GY ORDERABLES [facility] [place] [address] * (ABNORMAL) Urine culture (11/10/2022 10:40 AM EDT) Urine Culture 10,000-49,000 cfu/ml Escherichia coli(A) [facility] Organism Escherichia coli(A) [facility] Urine 11/10/2022 10:4 0 AM EDT 11/10/2022 7:17 PM EDT Narrative Resulting Agency Comment Spec In Lab Organism Antibiotic Method Susceptibility Escherichia coli Amikacin VITEK 2 METHOD Sensitive Escherichia coli Ampicillin + Sulbactam VITEK 2 METHOD Sensitive Escherichia coli Aztreonam VITEK 2 METHOD Sensitive Escherichia coli Cefazolin VITEK 2 METHOD Sensitive Escherichia coli Cefepime VITEK 2 METHOD <=1: Sensitive Escherichia coli Ceftazidime VITEK 2 METHOD <=1: Sensitive Escherichia coli Ceftriaxone VITEK 2 METHOD Sensitive Escherichia coli Ertapenem VITEK 2 METHOD Sensitive Escherichia coli Gentamicin VITEK 2 METHOD Sensitive Escherichia coli Levofloxacin VITEK 2 METHOD Sensitive Comment: Levofloxacin and Ciprofloxacin may not adequately treat infections in critically ill patients even when isolates test susceptible in the laboratory. Contact Infectious Disease before using in critically ill patients. Escherichia coli Meropenem VITEK 2 METHOD <=0.25: Sensitive Escherichia coli Nitrofurantoin VITEK 2 METHOD Sensitive Escherichia coli Piperacillin/Tazobactam VITEK 2 METHO D <=4: Sensitive Escherichia coli Tetracycline VITEK 2 METHOD Sensitive Escherichia coli Tobramycin VITEK 2 METHOD Sensitive Escherichia coli Trimethoprim/Sulfa VITEK 2 METHOD Sensitive Abby Phoenix CNM MICROBIOLOGY - G ENERAL ORDERABLES Performing Organization Address City/[facility]/ZIP Co de Phone Number [facility] [place] [address] * (ABNORMAL) Urinalysis Microscopic Exam (11/10/2022 10:40 AM EDT) RBC UA 2 0 - 4 /HPF [facility] WBC UA >100(H) 0 - 5 /HPF [facility] Bacteria UA Few(A) None /HPF [facility] Squam Epith UA 5(H) <=4 /HPF [facility] Hyaline Cast UA 6(H) 0 - 2 /LPF [facility] Urine Urine / Unknown 11/10/2022 1 0:40 AM EDT 11/10/2022 3:59 PM EDT Narrative Resulting Agency Comment Spec In Lab Abby MEANS URINE ORDERABLES Performing Organization Address [facility]/ZIP Co de Phone Number [facility] [place] [address] * (ABNORMAL) Urinalysis with reflex Culture (11/10/2022 10:40 AM EDT) Glucose UA Negative Negative mg/dL [facility] Protein UA 100(A) Negative mg/dL [facility] Bilirubin UA Negative Negative mg/dL [facility] Comment: Clinical correlation required for positive Urine Bilirubin results as false positive may occur with some drugs and drug related products. If a false positive is suspected a serum total bilirubin should be considered if clinically indicated. Urobilinogen UA Normal Normal mg/dL [facility] pH UA 6.5 5.0 - 8.0 [facility] Blood UA Trace(A) Negative mg/dL [facility] Ketones UA Negative Negative mg/dL [facility] Nitrite UA Negative Negative [facility] Leukocytes UA Large(A) Negative mcL [facility] Appearance UA Cloudy(A) Clear [facility] Spec [place] UA 1.018 1.005 - 1.030 [facility] Color UA Yellow Yellow [facility] Culture Reflexed Yes [facility] Urine Urine / Unknown 11/10/2022 1 0:40 AM EDT 11/10/2022 3:59 PM EDT Narrative Resulting Agency Comment Spec In Lab Abby Phoenix CNM URINE ORDERABLES Performing Organization Address City/[facility]/ZIP Co de Phone Number [facility] [place] [address] * Yeast culture Other (11/10/2022 10:40 AM EDT) Yeast Culture No Yeast isolated [facility] Other 11/10/2022 10:4 0 AM EDT 11/10/2022 4:30 PM EDT Comment:vulva Narrative Resulting Agency Comment Spec In Lab Abby Phoenix CNM MICROBIOLOGY - G ENERAL ORDERABLES Performing Organization Address [facility]/ZIP Co de Phone Number [facility] [place] [address] * (ABNORMAL) POCT urine dipstick (11/10/2022) POC Sp [place] 1.0(A) 1.002 - 1.030 POC pH, UA 6 5.0 - 8.5 POC Leuk, UA ++ Negative - Negative POC Nitrite, UA neg Negative - Negative POC Protein, UA ++ Negative - Negative mg/dL POC Glucose, UA norm Normal - Normal mg/dL POC Ketone, UA neg Negative - Negative POC Urobil, UA norm 0.2 - 1.0 mg/dL POC Bili, UA neg Negative - Negative POC Blood, UA 50 Negative - Negative dany/uL Abby Phoenix CNM POINT OF CARE TE ST ORDERABLES documented in this encounter Visit Diagnoses Diagnosis Irritation of vulva Other specified noninflammatory disorder of vulva and perineum Cervical cancer screening Screening for malignant neoplasm of the cervix Vaginal dryness, menopausal Symptomatic menopausal or female climacteric states Dysuria Encounter for gynecological examination with abnormal finding Routine gynecological examination documented in this encounter Care Teams Shagger Relationship Specialty Start Date End Date Trinh Coates MD [address] [place] [address] PCP - General 01/11/10 documented as of this encounter
--- OUTSIDE RECORDS SUMMARY | 2023-09-07 11:24 | XMS_ITS | Encounter Summary ---
Author Organization [facility] Address [facility] [place] [address] Care Team Providers Care Railroad Operator Name Role Phone Trinh Coates MD Primary Care Provider [phone] Encounter Details Date Type Department Care Team (Latest Contact Info) Description 01/31/2023 Travel Social History Tobacco Use Types Packs/Day [...] 01/22/2024 10:30 AM EST Appointment Mammography/[place] [address] Ladi Mendosa MD [facility] HEMATOLOGY/[place] [address] 01/30/2024 11:30 AM EST Office Visit Dermatology at [facility] [address] [place] [phone] Nilda Luis MD [facility] DR LID[address] [place] [address] 02/15/2024 9:30 AM EST [place] [address] [place] [address] documented as of this encounter Visit Diagnoses Not on filedocumented in this encounter Care Teams Railroad Operator Relationship Specialty Start Date End Date Trinh Coates MD [facility] [address] [facility] [address] [place] [address] PCP - General 01/11/10 documented as of this encounter
--- OUTSIDE RECORDS SUMMARY | 2023-09-07 11:24 | XMS_ITS | Encounter Summary ---
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 Social History Tobacco Use Types Packs/Day Years [...] Sign Reading Time Taken Comments Blood Pressure 130/78 08/03/2022 10:15 AM EDT Pulse 60 08/03/2022 10:15 AM EDT Temperature 35.9 ??C (96.7 ??F) 08/03/2022 10:15 AM E DT Respiratory Rate 18 08/03/2022 10:15 AM EDT Oxygen Saturation 100% 08/03/2022 10:15 AM EDT Inhaled Oxygen Concentration - - Weight 76.4 kg (168 lb 6.4 oz) 08/03/2022 10:15 AM EDT Height 152.4 cm (5') 08/03/2022 10:15 AM EDT Body Mass Index 32.89 08/03/2022 10:15 AM EDT documented in this encounter Progress Notes * Ronald Tahira AARTI Lanier - 08/03/2022 10:15 AM EDTSummary: 57 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 completed xrt (03/11/18). s/p B skin sparing mast . Arreaga and Arimedex switched [facility] [address] Phone: RADIATION ONCOLOGY FOLLOW UP NOTE Date of visit: 07/21/2022 Patient Wendy Sandoval 1965 PCP: Trinh Coates MD Radiation oncologist: Emily Choi MD Chief Complaint: scheduled FUV for breast cancer, post radiation therapy Time since completed RT: completed xrt (03/11/18) Current treatment: Surveillance and med onc for hormone management . Exemestane now (x8 months) andnot the tamoxifen or arimidex. HPI: Wenyd is a 55 y/o f who completed xrt (03/11/18) for breast ca, L, IDC, gr 3, ER+CO+, 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 Adjuvant chemo then given, followed by senior packaging engineer exchange for implants. She was taking arreaga, started after xrt completion; switched to arimidex for a while, then back to arreaga, then back to arimidex. At this time she has been switched to exemestane and now on for approximately the last year, she feels she is not having any symptoms or side effects with medication. 10/18/18 lymphovenous bypass L upper ext by Dr. Gimenez. 10/30/18 fu w/Rashaad Azevedo APRN Plastics, resume PT for lymphedema. 07/09/19 bone scan: Largely symmetric increased activity in shoulders & feet which likely reflects degenerative change; xrays may be obtained for further eval. Increased radiotracer uptake in C spine, xrays of C spine may be obtained for further eval. No definite evidence to suggest osseous met dz. 07/09/19 CT chest: No thoracic met dz. No acute pulmonary process. Cholelithiasis, no biliary ductaldilatation. L nephrolithiasis. 08/05/19 plain xray R shoulder: Degenerative changes. No acute abnlty. 12/12/19 repair of R rotator cuff by Ortho group in [facility]. Subjective: Aches & pains in joints & muscles which makes it difficult for her to walk by end of day. Stiff L neck following recent black fly bites on L neck. L arm lymphedema stable. Dec 24, 2020 ACL and meniscus surgery. Had PT for this and did well. She has significant lymphedema in L arm and attending [facility]. she will check in with Sheron her lymphedema specialist on this due to use of crutches increasing the lymphedema problem of her left arm. Interim HPI: Wendy relates a history of her mother having had a brain aneurysm which accounted for what she had earlier thought was chemo brain. Her mother has since recently from COVID and pneumonia that she acquired post surgery for her brain aneurysm. Because Wendy's father and mother both had vascular abnormalities and it was felt to be genetically related she was worked up for vascular abnormalities and found to have an aneurysm herself. She is just status post repair for aneurysm on July 24 and she is following closely with [facility] allergy department. She does not have any residual neurological deficits and feels like she is recovered well. She is on Plavix now for another 3 to 6 months. She does note significant bruising as she is on dual therapy with aspirin and Plavix. She anticipates another CT of the brain in Oct. and Dr. Jennings is her neurologist. Previously she had shared her mothers lymphoma hx: Her mother was diagnosed with lymphoma in her abdomen. Her mother is in her 80s and does not quite understand what the diagnosis is completely. Wendy brought her mother here from [place] for her treatment. There is a ceratin amt of concern for memory issues and perhaps a bit of chemo brain fog in this regard there is concern about her mother wanting to return to home in [place] without the support s he needs. We discussed neuro cognitive testing for her mom which can happen here and she should bring to attn of the tx oncologist. 03/11/21 Nephrology visit (follows q6 months) #Creatinine elevation suspect likely CKD stage III CR 1.4 -> eGFR 38ml/min #Hyperaldosteroism BP is well controlled at 121/69 Bilateral disease per renal vein sampling. Medications 07/20/22 1317 Medication Sig Taking? clopidogreL (Plavix) 75 mg tablet Take 1 tablet by mouth daily. Start 06/26/22, prior to aneurysm procedure. magnesium hydroxide (MAGNESIA ORAL) Take 1 tablet by mouth daily. MULTI-VITAMIN ORAL Take 1 tablet by mouth daily. Stelara 45 mg/0.5 mL subcutaneous injection MAINTENANCE: INJECT 1 SYRINGE SUBCUTANEOUSLY EVERY 12 WEEKS. REFRIGERATE. DO NOT FREEZE valACYclovir (Valtrex) 500 mg Tablet TAKE 1 TABLET BY MOUTH TWICE DAILY FOR 3 DAYS calcium carbonate (CALCIUM 600 ORAL) Take 600 mg by mouth every other day. exemestane (Aromasin) 25 mg Tablet Take 1 tablet by mouth daily. rosuvastatin (Crestor) 10 mg Tablet TAKE 1 TABLET BY MOUTH DAILY AT BEDTIME ibuprofen (ADVIL;MOTRIN) 200 mg Tablet Take 200 mg by mouth every 6 hours as needed for Pain. dilTIAZem (CARDIZEM CD) 240 mg Capsule, Sust. Release 24 hr Take 240 mg by mouth daily. spironolactone (ALDACTONE) 25 mg Tablet Take 1 tablet by mouth daily. gabapentin (NEURONTIN) 300 mg Capsule Take 1 capsule by mouth 3 times daily. Patient taking differently: Take 300 mg by mouth 3 times daily. One in am, two at night losartan (COZAAR) 100 mg Tablet take 1 tablet by mouth once daily cholecalciferol, Vitamin D3, 125 mcg (5,000 unit) Tablet Take by mouth daily. acetaminophen (TYLENOL) 325 mg Tablet Take 2 tablets by mouth every 4 hours as needed for Pain. ferrous gluconate 324 mg (37.5 mg iron) Tablet Take 324 mg by mouth daily. fluoxetine (PROZAC) 40 mg capsule Take 40 mg by mouth daily. Allergies Allergen Reactions Penicillins Thrush PAT Penicillin Allergy Risk Assessment 07/20/2022: Moderate Risk Reaction. Patient referred to allergy clinic for pre-op testing. Zoloft [Sertraline] PSORIASIS FLARE Past Medical History: Diagnosis Date CKD (chronic [...] IR Arteriogram Cerebral 05/19/2022 Joanna Watts MD [facility] INTERVENTIONL RAD IR DRAIN CHECK/CHANGE/REMOVE 11/20/2017 IR Drain Check/Change/Remove 11/20/2017 Marcos Dey MD [facility] INTERVENTIONL RAD IR MEDIPORT REMOVAL 01/25/2018 IR Mediport Removal 01/25/2018 Scooby Muñoz, UNMANNED EQUIPMENT OPERATOR [facility] INTERVENTIONL RAD PRG EMG, LARYNX N/A 11/02/2015 FACIAL NERVE MONITORING, SETUP LARYNGEAL performed by Valentina Lucas MD at [facility] MAIN OR PRO BREAST RECONSTRUCTION IMMT/DLYD W/TISS MOTOR ROOM CONTROLLER SBSQ EXPANSION Bilateral 04/26/2017 BREAST RECONSTRUCTION, IMMEDIATE OR DELAYED, W/ TISSUE MOTOR ROOM CONTROLLER, INCLUDING SUBSEQUENT EXPANSION (WRVU 18.5) performed by Andre Gimenez MD at [facility] MAIN OR PRO BREAST RECONSTRUCTION W FREE FLAP Bilateral 04/26/2017 @BREAST RECONSTRUCTION W/ FREE FLAP, SUSAN (WRVU 42.58) performed by Andre Gimenez MD at [facility] LLOYD PRO BREAST RECONSTRUCTION W/LATSMS D/SI FLAP WO PRSTHC IMPL Bilateral 12/12/2017 @BREAST RECONSTRUCTION W/ LAT DORSI FLAP,W/O IMPLANT, SUSAN (WRVU 23.36) performed by Andre Gimenez MD at [facility] MAIN OR PRO DEBRIDEMENT SUBCUTANEOUS TISSUE 20 SQCM/< 06/22/2017 DEBRIDEMENT SKIN AND SUBCU, BREAST (WRVU 1.01) performed by Andre Gimenez MD at [facility] MAIN OR PRO EXPLORE PARATHYROID GLANDS N/A 11/02/2015 PARATHYROIDECTOMY OR EXPLORATION OF PARATHYROID(S) performed by Valentina Lucas MD at [facility] MAIN OR PRO FULL THICK GRFT TRUNK <20 SQCM Bilateral 04/26/2017 FTSG, FREE, DIR CLOSE DONOR SITE, TRUNK, 20 SQ CM OR LESS (WRVU 9.15) performed by Andre Gimenez MD at [facility] MAIN OR [facility] INCISION OF LYMPH CHANNELS Left 10/18/2018 INCISION & DRAINAGE LYMPHOCELE (WRVU 6.81) performed by Andre Gimenez MD at [facility] MAIN OR PRO IV INJ TO TEST BLOOD FLOW IN FLAP/GRAFT Left 10/18/2018 IV INJECTION, AGENT TO TEST VASC FLOW IN FLAP OR GRAFT, ENT (WRVU 1.95) performed by Andre Gimenez MD at [facility] MAIN OR PRO MASTECTOMY, SIMPLE, COMPLETE Bilateral 04/26/2017 MASTECTOMY, SIMPLE, COMPLETE-SUSAN (WRVU 15.85) performed by Jolie Menendez MD at [facility] MAIN OR [facility] PARTIAL REMOVAL OF RIB Bilateral 04/26/2017 EXCISION OF RIB, PARTIAL (WRVU 7.26) performed by Andre Gimenez MD at [facility] MAIN OR [facility] REMOVE ARMPITS LYMPH NODES COMPLT Left 04/26/2017 LYMPHADENECTOMY, AXILLARY, COMPLETE (WRVU 13.87) performed by Jolie Menendez MD at [facility] MAIN OR [facility] REPLACE TISSUE MOTOR ROOM CONTROLLER Bilateral 12/12/2017 TISSUE MOTOR ROOM CONTROLLER REPLACEMENT, WITH PERMANENT PROSTHESIS, SUSAN (WRVU 8.01) performed by Andre Gimenez MD at [facility] MAIN OR PRO REVISION RECONSTRUCTED BREAST Left 06/22/2017 REVISION OF RECONSTRUCTED BREAST (WRVU 10.41) performed by Andre Gimenez MD at [facility] MAIN OR PRO REVISION RECONSTRUCTED BREAST Bilateral 12/12/2017 REVISION OFRECONSTRUCTED BREAST, SUSAN (WRVU 10.41) performed by Andre Gimenez MD at [facility] MAIN OR PRO THYMECTOMY, TRANSCERVICAL N/A 11/02/2015 THYMECTOMY, TRANSCERVICAL APPROACH performed by Valentina Lucas MD at [facility] OR SHOULDER SURGERY Left UMBILICAL HERNIA REPAIR [...] Stomach Cancer Maternal Cousin 57 Social History Tobacco Use Smoking status: Former Types: Cigarettes Quit date: 08/07/1991 Years since quittin.9 Smokeless tobacco: Never Vaping Use Vaping Use: Never used Substance Use Topics Alcohol use: Yes Comment: socially once a month Drug use: No Review of Symptoms: Patient concerns for today's visit: Skin changes at radiation /surgery site:telangiectasias under L breast, mild Lymphedema of breast and/or arm:LE is signif over the whole L arm. Has guantlet but dog has chewed so not using. She is using the full left arm compression sleeve. Fatigue: Fatigue is present but not as bad as nearer to tx. However, brain fog has been present since chemotherapy. Respiratory symptoms:no infection sx , no resp difficulties. Cardiac symptoms:no cardiac sx, edema r/t surgery. Mood changes: There is some sadness and depression. But she has had a lot going on between her own breast cancer. Torn ACL w/ Nov surgery and her mother recent diagnosis of GI cancer Alteration sexual function/body image: Not discussed at this time. Pain: States that she is doing well for pain control. And this in reference to her ACL repair. Breast chest arm tissue is not painful to her. Lifestyle/health: Weight/diet/appetite: dropped 20lbs and happy with that. No changes in appetite. Sleep: Sleeping okay function/transportation: Exercise/Bone health: Jan 09 ACL repair no other bone pain Smoking:former smoker quit 30 years ago Alcohol: No alcohol at this time Support/ social relationships: Phillip, spouse Regular visits with PCP/immunizations/screenings: Advanced directives: Not discussed at this time Performance Status: KPS Score ECOG Grade Definition x 90-100 0 Fully active, able to carry on all pre-disease performance without restriction 70-80 1 Restricted in physically strenuous activity but ambulatory and able to carry out work of a light or sedentary nature, e.g., light house work, office work 50-60 2 Ambulatory and capable of all selfcare but unable to carry out any work activities; up and about more than 50% of waking hours 30-40 3 Capable of only limited selfcare; confined to bed or chair more than 50% of waking hours 10-20 4 Completely disabled; cannot carry on any selfcare; totally confined to bed or chair Physical Examination: Body mass index is 32.89 kg/m??. BP 130/78 (Patient Position: Sitting) Pulse 60 Temp 35.9 ??C (96.7 ??F) (Temporal) Resp 18 Ht 152.4 cm (5') Wt 76.4 kg (168 lb 6.4 oz) 3 Constitutional: seen by self in clinic , no distress HENT: normocephalic, anicteric, neck supple, no adenopathy Cardiovascular: Rate and Rhythm: Normal rate and regular rhythm. Heart sounds: Normal heart sounds. No murmur Pulmonary: Effort: Pulmonary effort is normal. Breath sounds: Normal breath sounds. No wheezing or rales. Musculoskeletal: Normal range of motion. Has fairly good range of motion in her left arm despite lymphedema which is extensive over her left arm and hand Comments: Ambulates with use of crutches Skin: General: Skin is warm and dry. Neurological: General: No focal deficit present. Mental Status: alert and oriented to person, place, and time. Gait: Gait normal. Psychiatric: Mood and Affect: Mood normal. Behavior: Behavior normal. Thought Content: Thought content normal. Judgment: Judgment normal. Breast exam: L breast/axilla arm examined. LE much less severe of L arm and hand. Scars from bilateral mastectomies appreciated, well-healed. Skin of chest is without erythema or discoloration exceptfor a fine area of telangiectasias under the left breast. Left and right breast palpated without discomfort. There is some asymmetry with left breast a little bit higher and more firm than right breast. Can appreciate edges of prosthetics my palpation. No adenopathy appreciated axillary clavicular or cervical brannon areas bilaterally. No abdominal tenderness New Imaging Reviewed this Visit: Bilateral mastectomies with prosthetics. Assessment: 57 y.o. presenting for follow up of breast cancer, for which she completed adjuvant radiation 03/11/18. Bilateral mastectomies with prosthetics. She has much improved LE of L arm. This at last visit had been aggravated by ACL repair and crutch use. She has access to PT as needed. She does not have any other real complaints, she feels that her ACL surgery turned out well and that she is recovered well. Her primary focus has been on her mother's needs due to need for chemo in her dx of lymphoma. Medical Decision Making/Recommendations/Plan: # breast cancer: Lymphedema of left arm. Much reduced and improved. Good ROM No other concerning reported symptoms or physical examination findings today. No bone pain. No neuro issues, no bone pain. # effects of EBRT: we discussed the potential for late effects of radiation including but not limited to skin changes (thickening, pigmentation changes, retraction, fibrosis, telangiectasias, edema of breast/arm; lung and/ or cardiac injury/inflammation. # survivorship concerns: Due to multiple health issues and many medical appt, Wendy feels that she will not need to f/u ongoing with radiation oncology. She is welcome to call at anytime for survivorship f/u. We will not make any scheduled follow up at this time. [facility] # lifestyle/wellness concerns: # Reviewed: Symptoms that you should bring to the attention of your provider: 1. Anything that represents a brand new symptom; 2. Anything that represents a persistent symptom for more than 2 weeks: 3. Anything you are worried about that may be related to your cancer coming back For example, Persistent pain, cough, shortness of breath, headache. Any change in skin at treatment site from post treatment baseline or new lump or nipple discharge. Vaginal bleeding/spotting if you are on tamoxifen. # follow up: NCCN guidelines: history and physical examination every 6-12 months X 5 years, annual mammogram. Since she is seeing oncology every 6 months and surgery annually for mammogram, we don't need to continue to see her in radiation. She is agreeable to this plan. She was encouraged to call anytime if she has questions or concerns. Wendy Sandoval had the opportunity to ask questions and I answered them to the best of my knowledge. Wendy Sandoval agreed to contact radiation oncology in between visits if she has any questions/concerns or new symptoms in regards to the radiation therapy/breast cancer Next visit: none further per pt. With bilateral mastectomies no mammogram is scheduled. Tahira Cardenas MSN, UNMANNED EQUIPMENT OPERATOR, ENGINEERING DESIGNER-C Nurse Practitioner Radiation Oncology documented in this encounter Plan of Treatment Upcoming Encounters Date Type Department Care Team (Late st Contact Info) Description 01/22/2024 10:30 AM EST Appointment Mammography[place] [address] Ladi Mendosa MD [facility] HEMATOLOGY/[place] [address] 01/30/2024 11:30 AM EST Office Visit Dermatology at [place] [address] [place] [address] Nilda Luis MD [facility] [place] [address] 02/15/2024 9:30 AM [place] [address] [place] [address] documented as of this encounter Visit Diagnoses Diagnosis 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 [address] [place] [id number] PCP - General 01/11/10 documented as of this encounter
--- OUTSIDE RECORDS SUMMARY | 2023-09-07 11:24 | XMS_ITS | Encounter Summary ---
Author Organization [facility] [place] [address] Care Team Providers Care Diploma Maker Name Role Phone Trinh Coates MD Primary Care Provider [phone] Encounter Details Date Type Department Care Team (Late st Contact Info) Description 11/08/2022 2:00 PM EDT [place] [address] [place] [address] Right internal carotid artery aneurysm Social History Tobacco Use Types Packs/Day Years [...] Sign Reading Time Taken Comments Blood Pressure 128/76 11/08/2022 1:50 PM EDT Pulse 55 11/08/2022 1:50 PM EDT Temperature 36.9 ??C (98.5 ??F) 11/08/2022 1:50 PM ED T Respiratory Rate 17 11/08/2022 1:50 PM EDT Oxygen Saturation 98% 11/08/2022 1:50 PM EDT Inhaled Oxygen Concentration - - Weight 81.8 kg (180 lb 6.4 oz) 11/08/2022 1:50 P M EDT Height 152.4 cm (5') 11/08/2022 1:50 PM EDT Body Mass Index 35.23 11/08/2022 1:50 PM EDT documented in this encounter Progress Notes * Joanna Watts MD - 11/08/2022 2:00 PM EDT Cerebrovascular & Neurosurgery Clinic Note Patient Wendy Sandoval 1965 DATE OF VISIT: 11/08/2022 REASON FOR VISIT: Problem List Items Addressed This Visit 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 S/p pipeline stenting on 07/24/2022 for R ICA carotid cave 4mm aneurysm Doing well, no stroke like symptoms. On aspirin and plavix. Has increased SOB since around the time of her procedure. Being worked up with PCP, echo pending PAST MEDICAL HISTORY: Past Medical History: Diagnosis Date CKD (chronic kidney disease) stage 3, GFR 30-59 ml/min Fibrocystic breast determined by biopsy High blood pressure Hyperlipidemia Hypertension Impaired fasting glucose Malignant neoplasm of upper-outer quadrant of left breast in female, estrogen receptor positive 03/31/2017 Obstructive sleep apnea on CPAP Proteinuria PAST SURGICAL HISTORY: Past Surgical History: Procedure Laterality Date BREAST BIOPSY Right 11/01 SECTION x 2 HAND SURGERY Right IR ARTERIOGRAM CEREBRAL 05/19/2022 IR Arteriogram Cerebral 05/19/2022 Joanna Watts MD [facility] INTERVENTIONL RAD IR DRAIN CHECK/CHANGE/REMOVE 11/20/2017 IR Drain Check/Change/Remove 11/20/2017 Marcos Dey MD [facility] INTERVENTIONL RAD IR EMBOLIZATION CEREBRAL 07/24/2022 IR Embolization Cerebral 07/24/2022 Joanna Watts MD [facility] INTERVENTIONL RAD IR MEDIPORT REMOVAL 01/25/2018 IR Mediport Removal 01/25/2018 Scooby Muñoz, IRS AGENT [facility] INTERVENTIONL RAD PRG EMG, LARYNX N/A 11/02/2015 FACIAL NERVE MONITORING, SETUP LARYNGEAL performed by Valentina Lucas MD at [facility] MAIN OR PRO BREAST RECONSTRUCTION IMMT/DLYD W/TISS APPEALS ANALYST SBSQ EXPANSION Bilateral 04/26/2017 BREAST RECONSTRUCTION, IMMEDIATE OR DELAYED, W/ TISSUE APPEALS ANALYST, INCLUDING SUBSEQUENT EXPANSION (WRVU 18.5) performed by Andre Gimenez MD at [facility] OR PRO BREAST RECONSTRUCTION W FREE FLAP Bilateral 04/26/2017 @BREAST RECONSTRUCTION W/ FREE FLAP, SUSAN (WRVU 42.58) performed by Andre Gimenez MD at [facility] LLOYD PRO BREAST RECONSTRUCTION W/LATSMS D/SI FLAP WO PRSTHC IMPL Bilateral 12/12/2017 @BREAST RECONSTRUCTION W/ LAT DORSI FLAP,W/O IMPLANT, SUSAN (WRVU 23.36) performed by Andre Gimenez MD at [facility] OR [facility] DEBRIDEMENT SUBCUTANEOUS TISSUE 20 SQCM/< 06/22/2017 DEBRIDEMENT SKIN AND SUBCU, BREAST (WRVU 1.01) performed by Andre Gimenez MD at [facility] OR [facility] EXPLORE PARATHYROID GLANDS N/A 11/02/2015 PARATHYROIDECTOMY OR EXPLORATION OF PARATHYROID(S) performed by Valentina Lucas MD at [facility] OR [facility] FULL THICK GRFT TRUNK <20 SQCM Bilateral 04/26/2017 FTSG, FREE, DIR CLOSE DONOR SITE, TRUNK, 20 SQ CM OR LESS (WRVU 9.15) performed by Andre Gimenez MD at [facility] OR [facility] INCISION OF LYMPH CHANNELS Left 10/18/2018 INCISION & DRAINAGE LYMPHOCELE (WRVU 6.81) performed by Andre Gimenez MD at [facility] OR [facility] IV INJ TO TEST BLOOD FLOW IN FLAP/GRAFT Left 10/18/2018 IV INJECTION, AGENT TO TEST VASC FLOW IN FLAP OR GRAFT, ENT (WRVU 1.95) performed by Andre Gimenez MD at [facility] OR PRO MASTECTOMY, SIMPLE, COMPLETE Bilateral 04/26/2017 MASTECTOMY, SIMPLE, COMPLETE-SUSAN (WRVU 15.85) performed by Jolie Menendez MD at [facility] OR PRO PARTIAL REMOVAL OF RIB Bilateral 04/26/2017 EXCISION OF RIB, PARTIAL (WRVU 7.26) performed by Andre Gimenez MD at [facility] OR PRO PERM OCCLUSION/EMBOLIZATION, PERCUT, YARDER N/A 07/24/2022 @TRANSCATHETER OCCLUSION/EMBOLIZATION FOR TUMOR DESTRUCTION (WRVU 20.12) performed by Joanna Watts MD at [facility] ENRIQUE PRO REMOVE ARMPITS LYMPH NODES COMPLT Left 04/26/2017 LYMPHADENECTOMY, AXILLARY, COMPLETE (WRVU 13.87) performed by Jolie Menendez MD at [facility] MAIN OR PRO REPLACE TISSUE APPEALS ANALYST Bilateral 12/12/2017 TISSUE APPEALS ANALYST REPLACEMENT, WITH PERMANENT PROSTHESIS, SUSAN (WRVU 8.01) performed by Andre Gimenez MD at [facility] MAIN OR PRO REVISION RECONSTRUCTED BREAST Left 06/22/2017 REVISION OF RECONSTRUCTED BREAST (WRVU 10.41) performed by Andre Gimenez MD at [facility] MAIN OR PRO REVISION RECONSTRUCTED BREAST Bilateral 12/12/2017 REVISION OFRECONSTRUCTED BREAST, SUSAN (WRVU 10.41) performed by Andre Gimenez MD at [facility] MAIN OR PRO THYMECTOMY, TRANSCERVICAL N/A 11/02/2015 THYMECTOMY, TRANSCERVICAL APPROACH performed by Valentina Lucas MD at [facility] MAIN OR SHOULDER SURGERY Left UMBILICAL HERNIA REPAIR OBJECTIVE: BP 128/76 (BP Location (NBP): Right arm, Patient Position: Sitting, BP Cuff Sizes: Adult (25-34 cm)) Pulse 55 Temp 36.9 ??C (98.5 ??F) (Temporal) Resp 17 Ht 152.4 cm (5') Wt 81.8 kg (180 lb6.4 oz) SpO2 98% BMI 35.23 kg/m?? RELEVANT FINDINGS ON NEUROLOGIC EXAMINATION: No acute distress Awake, Alert, Interactive Pupils equal and reactive Extraocular movements intact No drift Moving all extremities with full strength Gait: Unremarkable CURRENT MEDICATIONS: FLUoxetine, acetaminophen, aspirin, calcium carbonate, cholecalciferol (Vitamin D3), clopidogreL, dilTIAZem CD, exemestane, ferrous gluconate, fluorouraciL, gabapentin, losartan, multivitamin, rosuvastatin, spironolactone, and ustekinumab IMAGING & STUDIES PERSONALLY INTERPRETED: CTA today shows possible minimal residual aneurysm. Patent stent. No new aneurysms. Appreciate signal change reported by radiology in the R petrous ICA. No clinical relevance. 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 Pending confirmation of complete occlusion, can d/c plavix, continue aspirin for life. The patient understands to contact neurosurgery or seek emergent help with any acute worsening of neurologic symptoms. PLAN SUMMARY: DSA Jan 2023 already scheduled I spent a total of 20 minutes in the care of this patient today including review of prior notes, review of prior images, interval history, physical exam as outlined above, personal review and independent interpretation of studies outlined above, patient counseling, documentation in the medical record, and coordination of care. -- 11/08/2022 2:42 PM Joanna Watts MD Open cerebrovascular and endovascular neurosurgery attending Section of Neurosurgery Department of Surgery [facility] documented in this encounter Plan of Treatment Upcoming Encounters Date Type Department Care Team (Late st Contact Info) Description 01/22/2024 10:30 AM EST Appointment Mammography/DXA at [place] [phone] Ladi Mendosa MD [facility] DR HEMATOLOGY/[place] [address] 01/30/2024 11:30 AM EST Office Visit Dermatology at [address] [phone] Nilda Luis MD [facility] [address] [place] [address] 02/15/2024 9:30 AM EST Appointment Radiology at [place] [phone] [place] [address] documented as of this encounter Visit Diagnoses Diagnosis 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
--- OUTSIDE RECORDS SUMMARY | 2023-09-07 11:24 | XMS_ITS | Encounter Summary ---
Author Organization [facility] Address [facility] [place] [address] Care Team Providers Care College Instructor Name Role Phone Trinh Coates MD Primary Care Provider Encounter Details Date Type Department Care Team (Late st Contact Info) Description 10/20/2022 Orders [place] [phone] Araceli Levi APRN [facility] [place] [address] 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 [...] 01/22/2024 10:30 AM EST Appointment Mammography/[place] [phone] Ladi Mendosa MD [facility] HEMATOLOGY/[place] [address] 01/30/2024 11:30 AM EST Office Visit Dermatology at [facility] [address] [place] [address] Nilda Luis MD [facility] [address] [place] [address] 02/15/2024 9:30 AM EST [place] [phone] Joanna Watts MD [place], [place] [phone] documented as of this encounter Results * (ABNORMAL) Creatinine (11/08/2022 10:02 AM EDT) Creatinine 1.87(H) 0.70 - 1.20 mg/dL [facility] Estimated GFR 31(L) >=60 mL/min/1. 73 m?? 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
--- OUTSIDE RECORDS SUMMARY | 2023-09-07 11:24 | XMS_ITS | Encounter Summary ---
Author Organization [facility] Address [facility] [place] [address] Care Team Providers Care Paint Line Supervisor Name Role Phone Trinh Coates MD Primary Care Provider [phone] Encounter Details Date Type Department Care Team (Late st Contact Info) Description 11/07/2022 Telephone Dermatology at [facility] [address] [place] [address] Nilda Luis MD [facility] [address] [place] [address] Social History Tobacco Use Types Packs/Day Years [...] * Telephone Encounter - Pat Durbin - 11/07/2022 3:02 PM EDT Wendy Martinezmoreno left a voicemail on 11/07 in regards to her appointment on 12/12. She stated that she is hesitant to begin the efudex cream. She mentioned possibly doing it after she returns from a trip in December. documented in this encounter Plan of Treatment Upcoming Encounters Date Type Department Care Team (Late st Contact Info) Description 01/22/2024 10:30 AM EST Appointment Mammography/[place] [phone] Ladi Mendosa MD [facility] [place]ATOLOGY/[place] [address] 01/30/2024 11:30 AM EST Office Visit Dermatology at [address] [place] [phone] Nilda Luis MD [facility] [address] [place] [address] 02/15/2024 9:30 AM [place] [address] [place] [address] documented as of this encounter Visit Diagnoses Not on filedocumented in this encounter Care Teams Paint Line Supervisor Relationship Specialty Start Date End Date Trinh Coates MD [address] [place] [address] PCP - General 01/11/10 documented as of this encounter
--- OUTSIDE RECORDS SUMMARY | 2023-09-07 11:24 | XMS_ITS | Encounter Summary ---
Author Organization [facility] [place] [address] Care Team Providers Care Medical Support Assistant Name Role Phone Trinh Coates MD Primary Care Provider [phone] Reason for Referral * Diagnostic Test (Routine) - Closed Specialty Diagnoses / Procedures Referred By Diamante t Referred To Contact Radiology Diagnoses Brain aneurysm Procedures CT Angiogram Alfred Martínez MD [facility] [place] [address] [facility] [place] [address] Referral ID Status Reason Start Date Expiration Date V isits Requested Visits Authorized [id number] Closed Specialty Service Requested 10/26/2022 04/24/2023 1 1 Reason for Visit * Diagnostic Test (Routine) - Closed Specialty Diagnoses / Procedures Referred By Diamante marin Referred To Contact Radiology Diagnoses Brain aneurysm Procedures CT Angiogram Alfred Martínez MD [facility] [place] [address] [facility] [place] [address] Referral ID Status Reason Start Date Expiration Date V isits Requested Visits Authorized [id number] Closed Specialty Service Requested 10/26/2022 04/24/2023 1 1 Encounter Details Date Type Department Care Team (Latest Contact Info) Description 11/08/2022 11:14 AM EDT - 11/08/2022 11:59 PM EDT [place] [address] [place] [address] Brain aneurysm Discharge Disposition: Home Social History Tobacco Use [...] q 6 hrs daily as needed 11/15/2015 acetaminophen (Tylenol) 500 mg tablet Take 1,000 [...] NOT FREEZE 0.5 mL 2 05/16/2022 01/30/2023 exemestane (Aromasin) 25 mg TabletIndications:Stan nantomas neoplasm of upper-outer quadrant of left breast in female, estrogen receptor positive Take 1 tablet by mouth daily. 30 tablet 11 10/13/2021 01/08/2023 documented as of this encounter Plan of Treatment Upcoming Encounters Date Type Department Care Team (Late st Contact Info) Description 01/22/2024 10:30 AM EST Appointment Mammography/[place] [address] Ladi Mendosa MD [facility] HEMATOLOGY/[place] [address] 01/30/2024 11:30 AM EST Office Visit Dermatology at [place] [address] [phone] Nilda Luis MD [facility] [address] [place] [address] 02/15/2024 9:30 AM [place] [address] [place] [address] documented as of this encounter Procedures Procedure Name Priority Date/Time Associated Diagnosis Comments CT [place] W CONTRAST Routine 11/08/2022 12:15 PM EDT Brain aneurysm documented in this encounter Results * CT Angiogram [place] (11/08/2022 12:15 PM EDT) Anatomical Region Laterality [...] who have questions please contact the health sub acute care nurse that requested your imaging first. ? Electronically signed by: Margie Colon [facility] ([phone]), at 11/08/2022 2:44 PM Narrative 11/08/2022 2:44 PM EDT EXAMINATION: CT ANGIOGRAM [place] CLINICAL HISTORY: Cerebral aneurysm, follow-up TECHNIQUE: CT angiogram of the [place] was performed after the intravenous administration of 65 cc Visipaque 320, MIP and 3D reconstructions were reviewed after being processed on an independent workstation COMPARISON: MRA cra[place] 03/28/2022 FINDINGS: Status post stent-diversion of right ICA paraophthalmic artery aneurysm. No evidence for recurrence. Apparent filling defect within the right ICA at the horizontal/cavernous junction which may reflect dissection. Anterior communicating artery complex is normal. Vertebrobasilar system is normal. No central branch occlusion in the [place]. origin left AREA MANAGER. Procedure Note Margie Colno MD - 11/08/2022 EXAMINATION: CT ANGIOGRAM [place] CLINICAL HISTORY: Cerebral aneurysm, follow-up TECHNIQUE: CT angiogram of the [place] was performed after the intravenous administration of 65 cc Visipaque 320, MIP and 3Dreconstructions were reviewed after being processed on an independent workstation COMPARISON: MRA [place] 03/28/2022 FINDINGS: Status post stent-diversion of right ICA paraophthalmic artery aneurysm. No evidence for recurrence. Apparent filling defect within theright ICA at the horizontal/cavernous junction which may reflect dissection.Anterior communicating artery complex is normal. Vertebrobasilar system is normal.No central branch occlusion in the [place]. origin left AREA MANAGER. 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 Thank you for letting us participate in the care of this patient. If youare a health care provider and have any questions regarding this report,please contact the number below. For patients who have questions please contactthe health sub acute care nurse that requested your imaging first. Joanna Watts MD IMG CT ORDERABLES documented in this encounter Visit Diagnoses Diagnosis Brain aneurysm Cerebral aneurysm, nonruptured documented in this encounter Administered Medications Inactive Administered Medications - up to 3 most recent administrations Medication Order MAR Action Action Date Dose Rate Site iodixanoL (Visipaque) (320 mg/mL) injection solution 0-200 mL 0-200 mL, Intravenous, ONCE PRN, 1 dose, Starting on Sun11/08/22 at 1212, Until Sun11/08/22 at 1213, Per Protocol, Radiology Contrast, Routine Given 11/08/2022 12:13 PM EDT 65 mLs documented in this encounter Care Teams Medical Support Assistant Relationship Specialty Start Date End Date Trinh Coates MD [address] [place] [address] PCP - General 01/11/10 documented as of this encounter
--- OUTSIDE RECORDS SUMMARY | 2023-09-07 11:24 | XMS_ITS | Encounter Summary ---
Author Organization [facility] Address [facility] [place] [address] Care Team Providers Care Regulation Supervisor Name Role Phone Trinh Coates MD Primary Care Provider [phone] Encounter Details Date Type Department Care Team (Latest Contact Info) Description 01/24/2023 Travel Social History Tobacco Use Types Packs/Day [...] 01/22/2024 10:30 AM EST Appointment Mammography/[place] [address] Ladi Mendosa MD [facility] [place]EMATOLOGY/[place] [address] 01/30/2024 11:30 AM EST Office Visit Dermatology at [facility] [address] [place] [phone] Nilda Luis MD [facility] [address] [place] [address] 02/15/2024 9:30 AM EST [place] [address] [place] [address] documented as of this encounter Visit Diagnoses Not on filedocumented in this encounter Care Teams Regulation Supervisor Relationship Specialty Start Date End Date Trinh Coates MD [facility] [address] [facility] [address] [place] [address] PCP - General 01/11/10 documented as of this encounter
--- OUTSIDE RECORDS SUMMARY | 2023-09-07 11:24 | XMS_ITS | Encounter Summary ---
Author Organization [facility] Address [facility] [place] [address] Care Team Providers Care Firer Watertender Name Role Phone Trinh Coates MD Primary Care Provider [phone] Encounter Details Date Type Department Care Team (Latest Contact Info) Description 11/08/2022 Travel Social History Tobacco Use Types Packs/Day [...] 01/22/2024 10:30 AM EST Appointment Mammography/[place] [address] Ladi Mendosa MD [facility] HEMATOLOGY/[place] [address] 01/30/2024 11:30 AM EST Office Visit Dermatology at [facility] [address] [place] [phone] Nilda Luis MD [facility] [address] [place] [address] 02/15/2024 9:30 AM EST Appointment [place] [address] [place] [address] documented as of this encounter Visit Diagnoses Not on filedocumented in this encounter Care Teams Firer Watertender Relationship Specialty Start Date End Date Trinh Coates MD [facility] [address] [facility] [address] [place] [address] PCP - General 01/11/10 documented as of this encounter
--- OUTSIDE RECORDS SUMMARY | 2023-09-07 11:24 | XMS_ITS | Encounter Summary ---
Author Organization [place] [address] Care Team Providers Care Composite Bond Technician Name Role Phone Trinh Coates MD Primary Care Provider [phone] Reason for Referral * Diagnostic Test (Routine) - Closed Specialty Diagnoses / Procedures Referred By Diamante marin Referred To Contact Radiology Diagnoses Right internal carotid artery aneurysm Procedures IR Arteriogram Cerebral Araceli Levi APRN [facility] [place] [address] [place] [address] Referral ID Status Reason Start Date Expiration Date V isits Requested Visits Authorized [id number] Closed Specialty Service Requested 09/20/2022 03/23/2024 1 1 Encounter Details Date Type Department Care Team (Late st Contact Info) Description 09/19/2022 [place] [address] Rachna Guerrero RN Social History [...] of this encounter Progress Notes * Araceli Leiv, AARTI - 09/20/2022 12:07 PM EDT NEURORADIOLOGY BRIEF PRE-PROCEDURE NOTE Name: Wendy Sandoval Date of : 1965 Referring provider: Araceli Levi APRN Indication: AXEL aneurysm stent placement Planned Procedure: diagnostic cerebral angiogram, Dr. Watts Chief Complaint/HPI: Wendy Sandoval is a 57 y.o. female Allergies: Allergies Allergen Reactions ??? Penicillins Thrush PAT Penicillin Allergy Risk Assessment 07/20/2022: Moderate Risk Reaction. Patient referred to allergy clinic for pre-op testing. ??? Zoloft [Sertraline] PSORIASIS FLARE Medications: Current Outpatient Medications: ??? acetaminophen (Tylenol) 325 mg tablet, Take 3 tablets by mouth every 6 hours as needed., Disp: 30 tablet, Rfl: 1 ??? aspirin 81 mg chewable tablet, Take 81 mg by mouth daily., Disp: 30 tablet, Rfl: 3 ??? clopidogreL (Plavix) 75 mg tablet, Take 1 tablet by mouth daily., Disp: 90 tablet, Rfl: 3 ??? gabapentin (Neurontin) 300 mg capsule, One in am, two at night, Disp: , Rfl: ??? MULTI-VITAMIN ORAL, Take 1 tablet by mouth daily., Disp: , Rfl: ??? Stelara 45 mg/0.5 mL subcutaneous injection, MAINTENANCE: INJECT 1 SYRINGE SUBCUTANEOUSLY EVERY12 WEEKS. REFRIGERATE. DO NOT FREEZE, Disp: 0.5 mL, Rfl: 2 ??? calcium carbonate (CALCIUM 600 ORAL), Take 600 mg by mouth every other day., Disp: , Rfl: ??? exemestane (Aromasin) 25 mg Tablet, Take 1 tablet by mouth daily., Disp: 30 tablet, Rfl: 11 ??? rosuvastatin (Crestor) 10 mg Tablet, TAKE 1 TABLET BY MOUTH DAILY AT BEDTIME, Disp: , Rfl: ??? dilTIAZem (CARDIZEM CD) 240 mg Capsule, Sust. Release 24 hr, Take 240 mg by mouth daily., Disp:, Rfl: ??? spironolactone (ALDACTONE) 25 mg Tablet, Take 1 tablet by mouth daily., Disp: 90 tablet, Rfl: 3 ??? losartan (COZAAR) 100 mg Tablet, take 1 tablet by mouth once daily, Disp: , Rfl: 0 ??? cholecalciferol, Vitamin D3, 125 mcg (5,000 unit) Tablet, Take by mouth daily., Disp: , Rfl: ??? ferrous gluconate 324 mg (37.5 mg iron) Tablet, Take 324 mg by mouth daily., Disp: , Rfl: ??? fluoxetine (PROZAC) 40 mg capsule, Take 40 mg by mouth daily., Disp: , Rfl: Labs: Creatinine Date Value Ref Range Status 07/25/2022 1.46 (H) 0.70 - 1.20 mg/dL Final 07/20/2022 1.70 (H) 0.70 - 1.20 mg/dL Final 2022 1.60 (H) 0.70 - 1.20 mg/dL Final Potassium Date Value Ref Range Status 07/25/2022 4.2 3.5 - 5.0 mmol/L Final Comment: Please note: Patients with WBC >100,000 may have falsely elevated Potassium levels. For accurate Potassium quantification in these patients send serum separator tube (gold top) for subsequent determinations. Contact the Clinical Chemistry Laboratory if there are any questions. 07/20/2022 4.8 3.5 - 5.0 mmol/L Final Comment: Please note: Patients with WBC >100,000 may have falsely elevated Potassium levels. For accurate Potassium quantification in these patients send serum separator tube (gold top) for subsequent determinations. Contact the Clinical Chemistry Laboratory if there are any questions. 2022 4.2 3.5 - 5.0 mmol/L Final Comment: Please note: Patients with WBC >100,000 may have falsely elevated Potassium levels. For accurate Potassium quantification in these patients send serum separator tube (gold top) for subsequent determinations. Contact the Clinical Chemistry Laboratory if there are any questions. Platelets Date Value Ref Range Status 07/25/2022 266 145 - 357 x10(3)/mcL Final Imaging: in edh Assessment: 57 y.o. female without contraindication to proceed. Has CKD, will give pre-procedure hydration 1L, with additional 180-200mL following procedure. (see problem list for renal guidelines). Labs to be performed day of procedure: BMP, platelets Medications to discontinue: None, continue aSA and Plavix Position: supine Sedation: moderate Additional medications for procedure: Lidocaine 1%, radial access Consent: day of procedure Araceli Levi APRN 09/20/2022 12:07 PM documented in this encounter Miscellaneous Notes * Telephone Encounter - Araceli Levi APRN - 09/20/2022 11:[address] Wood's office. Planned surgery is hemorrhoidectomy/banding. Relayed the following: Need to stay on ASA/Plavix for 6 months after aneurysm stent placement. Will repeat aniogram at 6 months to ensure stent endothelialized, at which time Plavix will be discontinued and aspirin 81mg continued lifelong. After 6 month angiogram completed, will be able to stop ASA for procedures as needed. If a procedure is urgent, can consider repeating angiogram prior to 6 months. Will arrange for angiogram in early January, so that patient may proceed with her surgery with . * Telephone Encounter - Rachna Guerrero RN - 09/19/2022 1:51 PM EDT Copied from [facility] #[id number]. Topic: Specialty Dept CRMs - Generic Call >> Sep 19, 2022 1:41 PM Lindsey Gonzalez wrote: Specialist: Dr. Watts Relationship (if other than patient-full name): Dr. Wood from [facility] Reason for Call: reaching out to Dr. Watts, provider stated this is not an urgent request, but wondering if Dr. Watts can call to discuss patient coming off of Plavix for an elective surgery. Provider wants to consult about this prior to setting up the appointment for patient. [phone] documented in this encounter Plan of Treatment Upcoming Encounters Date Type Department Care Team (Ricardo Contact Info) Description 01/22/2024 10:30 AM EST Appointment Mammography/[place] [address] Ladi Mendosa MD [facility] [place] [address] 01/30/2024 11:30 AM EST Office Visit Dermatology at [facility] [address] [place] [id number] Nilda Luis MD [facility] [place] [address] 02/15/2024 9:30 AM EST [place] [address] [place] [address] documented as of this encounter Results * IR Arteriogram Cerebral (01/31/2023 4:05 PM EST) Anatomical Region Laterality Modality X-Ray Angiograph y Impressions 02/06/2023 9:38 AM EST 1. ??Today's diagnostic cerebral angiogram demonstrates subtle residual filling of the right ICA aneurysm status post pipeline embolization, with evidence of ongoing thrombosis. 2. ??3-D rotational angiographic data was reformatted on a dedicated workstation by the attending physician. 3. ??Findings discussed with the patient at the time of completion of the diagnostic angiogram. ATTESTATION Signer name: Joanna Watts MD I attest that I was present for the entire procedure. I reviewed the stored images and agree with the report as written. Sedation attestation: I was present during the intra-service time as documented by IR nurse. Thank you for letting us participate in the care of this patient. ??If you are a health care provider and have any questions regarding this report, please contact the number below. ??For patients who have questions please contact the health manager of care that requested your imaging first. ? Electronically signed by: Joanna Watts MD, [facility] ([phone]), at 02/06/2023 9:38 AM Narrative 02/06/2023 9:38 AM EST PROCEDURE NAME: IR ARTERIOGRAM CEREBRAL 01/31/2023 2:20 PM CLINICAL HISTORY: The patient is a 57 years Female with family history of ruptured aneurysm status post flow diverting stenting of a 4 mm right ICA aneurysm. Follow up angiogram is performed to evaluate for residual. COMPARISON: CT Angio head November 08, 2022, cerebral angiogram with embolization July 24, 2022 OPERATING PHYSICIANS: 1. ??Maximilian Sanchez MD, Neurosurgery Resident 2. ??Joanna Watts MD, Interventional Neuroradiology Attending ATTESTATION: Joanna Watts MD was the attending present who directly participated throughout the entire procedure. ANESTHESIA: Moderate conscious sedation was achieved with IV medications administered by Joanna Watts MD. The times and doses are accurately reflected in the patient?s medical record. Oxygenation was given via nasal cannula and the patient was monitored closely with pulse oximetry, blood pressure, and vital signs, by an independent, trained, qualified observer throughout the procedure to ensure the safety of the administration of the drugs. Full details are available in the procedure log and report. I, Dr Joanna Watts MD, attest that I personally was present for continuous 1:1 monitoring throughout the entire procedure and while sedation was being administered. The above times reflect physician/patient [id number] time. MEDICATIONS: 1% Lidocaine 10 ml SC Fentanyl 175 mcg IV Versed 2 mg IV CONTRAST VOLUME: 25 ml of iodinated contrast. RADIATION EXPOSURE: Fluoroscopy time: 6.4 minutes, Total Air Kerma (K)*: 171 mGy COMPLICATIONS: None ESTIMATED BLOOD LOSS: < 10ml. ACCESS: Right common femoral artery CLOSURE: Angio-Seal 6F vascular closure device VESSELS SELECTED: 1. ??Right common carotid artery VIEWS OBTAINED: 1. ??Single fluoroscopic image of the right hip. 2. ??Right common carotid artery, AP and lateral cervical roadmap views. 3. ??Right common carotid artery, AP and lateral cranial views. 4. ??Right common carotid artery, AP and lateral oblique magnified views. 5. ??Right common femoral artery. ?? INTERVENTION: None. EQUIPMENT: ?? 1. ??Micropuncture access kit. 2. ??0.035 x 150 cm Bentson guidewire. ?? 3. ??0.035 x 180 cm angled Glidewire 4. ??5-Samoan ??45 cm vascular sheath. 5. ??5-Samoan VERT catheter, 100cm 6. ??6-Samoan Angio-Seal Device PROCEDURE COMMENTS: After explaining the risks and benefits of the procedure to the patient, written informed consent was obtained and placed in the patient's chart. ??The risks, benefits, and alternatives to the procedure were explained in detail. ??The risks include, but are not limited to, bleeding, infection, arterial injury, groin hematoma, pseudoaneurysm, hemorrhagic or embolic stroke, contrast allergy, nephropathy, coma, and/or . ??The patient understood the risks and wished to proceed with the procedure. ?? The patient was brought to the angiography suite and placed in the supine position on the angiography table. ??Both groins were prepped and draped in the usual sterile fashion. ??A hard stop time-out was then performed to verify the patient's identity, the planned procedure, and procedure location. After proper patient identification and verification of the planned procedure, the procedure continued. The right groin was then infiltrated with 1% buffered lidocaine solution. ??A micropuncture needle was used to access the right common femoral artery without difficulty under ultrasound guidance. The micropuncture needle was then exchanged for an introducer followed by a 5-Samoan ??45 cm vascular sheath utilizing a Bentson wire. ??The sheath was then double flushed and hooked to heparinized saline via pressure bag. ??Subsequently a 5-Samoan ??VERT catheter and wire were used to selectively catheterize the vessels enumerated above. Multiple angiographic runs were performed. At the conclusion of the procedure, all catheters and equipment were removed. ??A 6 Samoan Angio-Seal closure device was subsequently prepared and advanced over a wire and deployed successfully with immediate hemostasis. ??A sterile dressing was placed. ??The dorsalis pedis pulses were stable bilaterally at the conclusion of the procedure. The patient tolerated the procedure well and left interventional suite in stable condition. FINDINGS: The following is a detailed description of each angiographic run: SINGLE FLUOROSCOPIC IMAGE OF THE RIGHT HIP. A single spot radiograph was obtained after the groin access into the right common femoral artery. ??This image demonstrates the puncture site to overlie the medial and middle portion of the femoral head, which is consistent with groin access being below the inguinal ligament. RIGHT COMMON CAROTID ARTERY, AP AND LATERAL CERVICAL ROADMAP VIEWS. Full evaluation limited secondary to patient motion. Severe tortuosity in the proximal common carotid artery without focal abnormality. No evidence of flow-limiting stenosis at the carotid bifurcation. RIGHT COMMON CAROTID ARTERY, AP AND LATERAL CRANIAL VIEWS. The distal cervical, petrous, and cavernous segments of the left internal carotid artery are smooth and normal in course and caliber. Stable position of the stent within the supraclinoid ICA with minimal intimal hyperplasia without flow-limiting stenosis noted. The ICA terminus is normal. The right middle cerebral artery smooth and normal in course and caliber. The right anterior cerebral artery is smooth and normal in course and caliber. No significant opacification of an anterior communicating artery complex on the present injection. Parenchymal and venous phases are normal. Dural venous sinuses are patent. The visualized branches of the external carotid artery appear normal. RIGHT COMMON CAROTID ARTERY, AP AND LATERAL OBLIQUE MAGNIFIED VIEWS. Magnified oblique views of the right internal carotid artery injection demonstrate subtle delayed filling of the central portion of the right ICA aneurysm best appreciated on the AP view of series 4. No new aneurysms or vascular malformations are identified. RIGHT COMMON FEMORAL ARTERY. Injection of the right common femoral artery shows puncture site above the level of the bifurcation of the femoral artery and below the takeoff of the inferior epigastric artery, suitable for placement of closure device. There is no evidence of vessel injury, dissection, or flow limitation on this injection. Procedure Note Joanna Watts MD - 02/06/2023 PROCEDURE NAME: IR ARTERIOGRAM CEREBRAL 01/31/2023 2:20 PM CLINICAL HISTORY: The patient is a 57 years Female with family historyof ruptured aneurysm status post flow diverting stenting of a 4 mm rightICA aneurysm. Follow up angiogram is performed to evaluate for residual. COMPARISON: CT Angio head November 08, 2022, cerebral angiogram with embolization July 24, 2022 OPERATING PHYSICIANS: 1. Maximilian Sanchez MD, Neurosurgery Resident 2. Joanna Watts MD, Interventional Neuroradiology Attending ATTESTATION: Joanna Watts MD was the attending present who directly participated throughout the entire procedure. ANESTHESIA: Moderate conscious sedation was achieved with IV medications administeredby Joanna Watts MD. The times and doses are accurately reflected in the patient?s medicalrecord. Oxygenation was given via nasal cannula and the patient was monitoredclosely with pulse oximetry, blood pressure, and vital signs, by an independent, trained, qualified observer throughout the procedure to ensure the safetyof the administration of the drugs. Full details are available in the procedurelog and report. I, Dr Joanna Watts MD, attest that I personally was present forcontinuous 1:1 monitoring throughout the entire procedure and while sedation wasbeing administered. The above times reflect physician/patient [id number]. MEDICATIONS: 1% Lidocaine 10 ml SC Fentanyl 175 mcg IV Versed 2 mg IV CONTRAST VOLUME: 25 ml of iodinated contrast. RADIATION EXPOSURE: Fluoroscopy time: 6.4 minutes, Total Air Kerma (K)*: 171 mGy COMPLICATIONS: None ESTIMATED BLOOD LOSS: < 10ml. ACCESS: Right common femoral artery CLOSURE: Angio-Seal 6F vascular closure device VESSELS SELECTED: 1. Right common carotid artery VIEWS OBTAINED: 1. Single fluoroscopic image of the right hip. 2. Right common carotid artery, AP and lateral cervical roadmap views. 3. Right common carotid artery, AP and lateral cranial views. 4. Right common carotid artery, AP and lateral oblique magnified views. 5. Right common femoral artery. INTERVENTION: None. EQUIPMENT: 1. Micropuncture access kit. 2. 0.035 x 150 cm Bentson guidewire. 3. 0.035 x 180 cm angled Glidewire 4. 5-Samoan 45 cm vascular sheath. 5. 5-Samoan VERT catheter, 100cm 6. 6-Samoan Angio-Seal Device PROCEDURE COMMENTS: After explaining the risks and benefits of the procedure to the patient,written informed consent was obtained and placed in the patient's chart. Therisks, benefits, and alternatives to the procedure were explained in detail. Therisks include, but are not limited to, bleeding, infection, arterial injury,groin hematoma, pseudoaneurysm, hemorrhagic or embolic stroke, contrastallergy, nephropathy, coma, and/or . The patient understood the risks andwished to proceed with the procedure. The patient was brought to the angiography suite and placed in thesupine position on the angiography table. Both groins were prepped and draped inthe usual sterile fashion. A hard stop time-out was then performed to verifythe patient's identity, the planned procedure, and procedure location. Afterproper patient identification and verification of the planned procedure, theprocedure continued. The right groin was then infiltrated with 1% buffered lidocaine solution.A micropuncture needle was used to access the right common femoral arterywithout difficulty under ultrasound guidance. The micropuncture needle was then exchanged for an introducer followed by a 5-Samoan 45 cm vascularsheath utilizing a Bentson wire. The sheath was then double flushed and hookedto heparinized saline via pressure bag. Subsequently a 5-Samoan VERTcatheter and wire were used to selectively catheterize the vessels enumerated above.Multiple angiographic runs were performed. At the conclusion of the procedure, all catheters and equipment wereremoved. A 6 Samoan Angio-Seal closure device was subsequently prepared and advancedover a wire and deployed successfully with immediate hemostasis. A steriledressing was placed. The dorsalis pedis pulses were stable bilaterally at theconclusion of the procedure. The patient tolerated the procedure well and left interventional suite instable condition. FINDINGS: The following is a detailed description of each angiographic run: SINGLE FLUOROSCOPIC IMAGE OF THE RIGHT HIP. A single spot radiograph was obtained after the groin access into theright common femoral artery. This image demonstrates the puncture site tooverlie the medial and middle portion of the femoral head, which is consistent withgroin access being below the inguinal ligament. RIGHT COMMON CAROTID ARTERY, AP AND LATERAL CERVICAL ROADMAP VIEWS. Full evaluation limited secondary to patient motion. Severe tortuosity inthe proximal common carotid artery without focal abnormality. No evidence of flow-limiting stenosis at the carotid bifurcation. RIGHT COMMON CAROTID ARTERY, AP AND LATERAL CRANIAL VIEWS. The distal cervical, petrous, and cavernous segments of the leftinternal carotid artery are smooth and normal in course and caliber. Stableposition of the stent within the supraclinoid ICA with minimal intimal hyperplasiawithout flow-limiting stenosis noted. The ICA terminus is normal. The rightmiddle cerebral artery smooth and normal in course and caliber. The rightanterior cerebral artery is smooth and normal in course and caliber. Nosignificant opacification of an anterior communicating artery complex on the present injection. Parenchymal and venous phases are normal. Dural venous sinusesare patent. The visualized branches of the external carotid artery appearnormal. RIGHT COMMON CAROTID ARTERY, AP AND LATERAL OBLIQUE MAGNIFIED VIEWS. Magnified oblique views of the right internal carotid artery injection demonstrate subtle delayed filling of the central portion of the rightICA aneurysm best appreciated on the AP view of series 4. No new aneurysmsor vascular malformations are identified. RIGHT COMMON FEMORAL ARTERY. Injection of the right common femoral artery shows puncture site above thelevel of the bifurcation of the femoral artery and below the takeoff of theinferior epigastric artery, suitable for placement of closure device. There is no evidence of vessel injury, dissection, or flow limitation on thisinjection. IMPRESSION 1. Today's diagnostic cerebral angiogram demonstrates subtle residualfilling of the right ICA aneurysm status post pipeline embolization, with evidenceof ongoing thrombosis. 2. 3-D rotational angiographic data was reformatted on a dedicatedworkstation by the attending physician. 3. Findings discussed with the patient at the time of completion of the diagnostic angiogram. ATTESTATION Signer name: Joanna Watts MD I attest that I was present for the entire procedure. I reviewed thestored images and agree with the report as written. Sedation attestation: I was present during the intra-service time asdocumented by IR nurse. Thank you for letting us participate in the care of this patient. If youare a health care provider and have any questions regarding this report,please contact the number below. For patients who have questions please contactthe health manager of care that requested your imaging first. Electronically signed by: Joanna Watts MD, [facility]([phone]), at 02/06/2023 9:38 AM Araceli Levi APRN IMG IR ORDERABLES * (ABNORMAL) Platelet count (01/24/2023 12:12 PM EST) Platelets 375(H) 145 - 357 x10(3)/[facility] LABORATORY Plat Immature % 0.8 0.0 - 7.4 % [facility] Comment: Limitation of the Immature Platelet Fraction (IPF)-May be less reliable when the platelet count is less than 32k135/uL due to statistical imprecision. The IPF value [...] in a decreased state of production. References: [employer] The Clinical Value of the Immature Platelet Fraction (IPF) in Cell Recovery Document Number [id number] 07/2010 [employer] The Role of the Immature Platelet Fraction (IPF) in the Differential Diagnosis of Thrombocytopenia, Document [id number] V05/02/01 P014 Blood 01/24/2023 12:1 2 PM EST 01/24/2023 12:16 PM EST Narrative Resulting Agency Comment Spec In Lab Araceli Levi BILINGUAL SOCIAL WORKER HEMATOLOGY ORDERABLE S [facility] [place] [address] * (ABNORMAL) Basic Metabolic Panel (non-fasting) (01/24/2023 12:12 PM EST) Glucose Lvl 76 65 - 199 mg/dL [facility] Comment:Diabetes: >=200 mg/d L plus symptoms BUN 35(H) 8 - 18 mg/dL [facility] Creatinine 1.91(H) 0.70 - 1.20 mg/dL [facility] Sodium 143 135 - 145 mmol/L [facility] Potassium 4.5 3.5 - 5.0 mmol/L [facility] Comment: Please note: ??Patients with WBC >100,000 may have falsely elevated Potassium levels. ??For accurate Potassium quantification in these patients send serum separator tube (gold top) for subsequent determinations. ??Contact the Clinical Chemistry Laboratory if there are any questions. Chloride 106 98 - 107 mmol/L [facility] CO2 24 22 - 31 mmol/L [facility] Anion Gap 13 5 - 15 mmol/L [facility] Calcium 10.2 8.5 - 10.5 mg/dL [facility] Estimated GFR 30(L) >=60 mL/min/1. 73 m?? 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
--- OUTSIDE RECORDS SUMMARY | 2023-09-07 11:24 | XMS_ITS | Encounter Summary ---
Author Organization [facility] Address [facility] [place] [address] Care Team Providers Care Office Administration Name Role Phone Trinh Coates MD Primary Care Provider [phone] Reason for Visit * Reason Comments Follow-up Encounter Details Date Type Department Care Team (Late st Contact Info) Description 01/02/2023 9:00 AM EST Office Visit Hematology [place] [address] Ladi Mendosa MD [facility] HEMATOLOGY/[place] [address] Malignant neoplasm of upper-outer quadrant of left breast in female, estrogen receptor positive Social History Tobacco Use Types Packs/Day Years [...] Sign Reading Time Taken Comments Blood Pressure 122/68 01/02/2023 9:01 AM EST Pulse 54 01/02/2023 9:01 AM EST Temperature 36.6 ??C (97.9 ??F) 01/02/2023 9:01 AM ES T Respiratory Rate 17 01/02/2023 9:01 AM EST Oxygen Saturation 99% 01/02/2023 9:01 AM EST Inhaled Oxygen Concentration - - Weight 81.6 kg (179 lb 14.3 oz) 01/02/2023 9:01 AM EST Height 152.4 cm (5') 01/02/2023 9:01 AM EST Body Mass Index 35.13 01/02/2023 9:01 AM EST documented in this encounter Progress Notes * Ladi Mendosa MD - 01/02/2023 9:00 AM EST Breast cancer Follow up Cc: 57 yo with hx left breast cancer Interval history: Wendy is doing ok, doing ok on exemestane. Taking calcium supplements. S/p kneesurgery and aneurysm stent with revision. F/u has been uneventful. Family history unchanged. Otherwise feels well. Left lymphedema is stable, doesn't wear a sleeve. Not interested in PT right now. cousin of gastric cancer 2 yrs ago, and another cousin dx with renal tumor. Daughter 28, asking about screening. HPI: Diagnosis of Invasive ductal carcinoma, left breast, in March 2017. 2.0 cm cancer, high-grade. ER/MO +++, HER-2/pat negative, 4/18 nodes (1/18 additional nodes with ITC). LVI negative. S/P left MRM and SALVADOR recon. S/P right prophylactic MRM and deep reconstruction, pathology benign. 07/20/17: Started adjuvant chemotherapy with dose-dense AC. 10/04/17: Transitioned to dose-dense Taxol adjuvant chemo. Completed 11/15/17. Completed radiation therapy at the end of March 2018 started tamoxifen. Switched to anastrazole, then back to tamoxifen, then back to anastrazole. Switched to Exemestane in Sep 2020 d/t joint aches on anastrozole. PMH: Past Medical History Past Medical History: Diagnosis Date Fibrocystic breast determined by biopsy Hyperlipidemia Hypertension Impaired fasting glucose Malignant neoplasm of upper-outer quadrant of left breast in female, estrogen receptor positive 03/31/2017 Obstructive sleep apnea on CPAP Proteinuria No h/o thromboembolic events LMP was just prior to diagnosis DEXA 01/29/19 normal. Family Hx: There is family h/o breast cancer, as follows: Mother - in her 60's (?DCIS). Now A&W age 76. MAunt - at age 39; developed a contralateral BrCa at age 50. MCfabricioin - at age 46. Alive, no testing Patient has a daughter and sister. There is also colon ca on her mother's side. Oct 2017 Genetic testing: [employer] Common Hereditary Cancers Panel showed no mutation was detected. This means that Wendy does not carry a mutation in the genes detectable by this test. The following genes were evaluated for sequence changes and exonic deletions/duplications: APC, AMAURY, AXIN2, BARD1, BMPR1A, BRCA1, BRCA2, BRIP1, CDH1, CDKN2A (p14ARF), CDKN2A ([id number]), CHEK2, CTNNA1, DICER1, EPCAM (EPCAM: Deletion/duplication testing only ([id number]), GREM1 (GREM1: Promoter region deletion/duplication testing only.), KIT, MEN1, MLH1, MSH2, MSH3, MSH6, MUTYH, NBN, NF1, PALB2, PDGFRA, PMS2, POLD1, POLE, PTEN, RAD50, RAD51C, RAD51D, SDHB, SDHC, SDHD, SMAD4, SMARCA4, STK11, TP53, TSC1, TSC 2, VHL. The following genes were evaluated for sequence changes only: HOXB13 (c.251G>A, p.Fap17Whz variant only), NTHL1 (NTHL1: Deletion/duplication analysis is not offered for this gene ([id number]), and SDHA. A variant of uncertain significance in the AMAURY gene, specifically c.5727G>A (p.[id number]), was detected. Exam Visit Vitals Last value Range last 8 hrs Temperature Temp: 36.6 ??C (97.9 ??F) Temp: [36.6 ??C (97.9 ??F)] Heart Rate Heart Rate: 54 Heart Rate: [54] Blood Pressure BP: 122/68 BP: (122)/(68) Respiratory Rate Resp: 17 Resp: [17] SpO2 SpO2: 99 % SpO2: [99 %] PERRL, EOMi, sclera nonicteric No BLANCA No spine tenderness S/P bilateral mastectomy/recon; no CW nodules Chest clear to A and P CV: RRR, no m/ Abd: No HSM, NT, +BS Ext: left arm larger than right Neuro grossly non-focal Assessment and Plan: 57 yo woman diagnosed in Mar 2017 with a high-grade, node-positive left breast cancer ER+/MO+/HER2-. She is s/p bilateral mastectomy, completed adjuvant chemo in October 2017. 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 Doing well on exemestane. now on year 5 out of 7. Will continue until 04/16. dexa 11/10 with osteopenia, repeat next year. F/u 1 yr documented in this encounter Plan of Treatment Upcoming Encounters Date Type Department Care Team (Late st Contact Info) Description 01/22/2024 10:30 AM EST Appointment Mammography/[place] [phone] Ladi Mendosa MD [facility] DR [place]EMATOLOGY/[place] [address] 01/30/2024 11:30 AM EST Office Visit Dermatology at [address] [address] Nilda Luis MD [facility] [address] [address] 02/15/2024 9:30 AM [place] [phone] [place] [address] Scheduled Orders Name Type Priority Associated Diagnoses Orde r Schedule DXA Central Spine, Hip, and/or Whole Body (Generic) Imaging Routine Malignant neoplasm of upper-outer quadrant of left breast in female, estrogen receptor positive Expected: 01/09/2024, Expires: 07/08/2024 documented as of this encounter Visit Diagnoses Diagnosis Malignant neoplasm of upper-outer quadrant of left breast in female, estrogen receptor positive documented in this encounter Care Teams Office Administration Relationship Specialty Start Date End Date Trinh Coates MD [address] [place] [address] PCP - General 01/11/10 documented as of this encounter
--- OUTSIDE RECORDS SUMMARY | 2023-09-07 11:24 | XMS_ITS | Encounter Summary ---
Author Organization [facility] Address [facility] [facility] [place] [address] Care Team Providers Care Property Developer Name Role Phone Trinh Coates MD Primary Care Provider [phone] Reason for Visit * Reason Comments Skin Lesion Encounter Details Date Type Department Care Team (Late st Contact Info) Description 09/26/2022 10:00 AM EDT Office Visit Dermatology at [facility] [address] [place] [address] Jay Luis MD [facility] [place] [address] Actinic cheilitis; Seborrheic keratosis; Nevus; Sebaceous hyperplasia Social History Tobacco Use Types Packs/Day Years [...] as of this encounter Progress Notes * Jay Luis MD - 09/26/2022 10:00 AM EDT Images from the original note were not included. DEPARTMENT OF DERMATOLOGY Medical Dermatology Clinic Provider: JAY LUIS MD Patient's preferred name Wendy Preferred contact method for results [x]Phone []myD-H []Letter Detailed phone message OK? Yes Are there any other people with whom we may discuss your care? Yes Past Medical History Date, location, treatment Melanoma No Dysplastic nevi 09/08/2013: left neck, Atypical lentiginous junctional melanocytic proliferation, S/P WLE 10/10/2013 SCC No BCC No AKs No UV Exposure & Protection Other relevant past medical history + Psoriasis (since age 16), started Stelara 09/12/18; previous treatments: triamcinolone ointment, calcipotriene, clobetasol cream, MG217 + H/O estrogen+ breast cancer + H/O Hyperparathyroidism Family History Details Melanoma No NMSC No Other relevant family history Psoriasis (Mother) Social History Occupation: Works at [employer] Pre-Procedure Questions Details Allergy to lidocaine, epinephrine, Dermabond, chlorhexidine, or adhesives No Bleeding disorder or blood thinners No Pacemaker, defibrillator, deep brain stimulator, cochlear implant No History of Present Illness: Wendy Sandoval is a 57 y.o. Patient returns to clinic today for a focused exam with the following concerns: - Follow-up evaluation of an actinic keratosis on the upper right cutaneous lip, treated with cryotherapy at her 2022 full skin exam. Wendy states that the lesion has not resolved since treatment. She states that she recently scratched off the top portion of the lesion. - She notes an additional raised lesion on the right vermilion border with recent onset. She describes it as a pimple that never came to a head. She denies associated tenderness or bleeding. - Wendy reports two new lesions on the right thigh, one lateral and one medial. She would like reassurance that they are benign. Last FSE: 2022 Medications: Reviewed in eD-H Allergies: Reviewed in eD-H Skin Examination: Focused skin examination of the left cheek, upper cutaneous lip, and right thigh was normal with the exception of the findings below. Assessment/Plan 1. Seborrheic Keratoses - Stuck on, waxy papule on the right lateral thigh. - Benign. No treatment needed. 2. Benign Nevus - Medium brown macules on the right medial thigh with reassuring pigment pattern ondermoscopy. - Reassured of benign appearance on exam today. - Advised patient to watch for any new or changing lesions. - Reviewed warning signs of skin cancer. 3. Sebaceous Hyperplasia - Scattered yellowish papules with central umbilication on the left malar cheek. - Patient reassured of benign nature. - No treatment necessary. 4. Actinic Cheilitis - Chrisney, erythematous patch on the upper right cutaneous lip. - No pain on palpation or induration - Discussed premalignant nature and risk of developing into skin cancer - Start Rx: 5-fluorouracil (Efudex) 0.5% cream: apply twice daily to the affected area of the lip for two weeks - Reviewed pamphlet and photographs which detail expectations and typical reaction to treatment. Redness, crusting, swelling and tenderness of treated skin expected to develop during treatment, and is a sign that the medication is working. Warned not to get in eyes. Discussed using medication as tolerated and stopping use for a day or two if inflammation becomes too intense or patient experiences discomfort. For any severe discomfort or side effects, patient was encouraged to call for furtheradvice and possible evaluation. Avoid pet exposure, discussed. - Patient will plan to start in October. Other: N/A RTC: November for 5FU f/u []Note routed to electronic system engineer []Recall placed in scheduling system [x]Appointment scheduled at checkout Scribe attestation: RANDY Villatoro has performed the documentation for this encounter in the presence of and acting as a scribe for JAY LUIS MD. I performed the above scribed service and agree with the accuracy of the documentation in this encounter. Reviewed and signed by: JAY LUIS MD Dermatology [facility] documented in this encounter Plan of Treatment Upcoming Encounters Date Type Department Care Team (Late st Contact Info) Description 01/22/2024 10:30 AM EST Appointment Mammography/[place] [address] Ladi Mendosa MD [facility] HEMATOLOGY/[place] [address] 01/30/2024 11:30 AM EST Office Visit Dermatology at [facility] [address] [place] [address] Jay Luis MD [facility] DR [address] [place] [address] 02/15/2024 9:30 AM EST [place] [phone] [place] [address] documented as of this encounter Visit Diagnoses Diagnosis Actinic cheilitis Acute dermatitis due to solar radiation Seborrheic keratosis Other seborrheic keratosis Nevus Benign neoplasm of skin, site unspecified Sebaceous hyperplasia Other specified disease of sebaceous glands documented in this encounter Care Teams Property Developer Relationship Specialty Start Date End Date Trinh Coates MD [facility] [address] [address] PCP - General 01/11/10 documented as of this encounter
--- OUTSIDE RECORDS SUMMARY | 2023-09-07 11:25 | XMS_ITS | Encounter Summary ---
[place] [address] Care Team Providers Care Special Education Itinerant Teacher Name Role Phone Trinh Coates MD Primary Care Provider [phone] Encounter Details Date Type Department Care Team (Late st Contact Info) Description 05/24/2022 [place]phone [place] [address] Felisa Chavis Social History Tobacco [...] * Telephone Encounter - Felisa Chavis - 05/24/2022 9:31 AM EDT Left message to schedule Embo with Dr. Watts documented in this encounter Plan of Treatment Upcoming Encounters Date Type Department Care Team (Late st Contact Info) Description 01/22/2024 10:30 AM EST Appointment Mammography/[place] [address] Ladi Mendosa MD [facility] HEMATOLOGY/[place] [address] 01/30/2024 11:30 AM EST Office Visit Dermatology at [facility] [address] [place] [address] Nilda Luis MD [facility] [address] [place] [address] 02/15/2024 9:30 AM EST [place]ointment [place] [address] [place] [address] documented as of this encounter Visit Diagnoses Not on filedocumented in this encounter Care Teams Special Education Itinerant Teacher Relationship Specialty Start Date End Date Trinh Coates MD [facility] [address] [facility] [address] [place] [address] PCP - General 01/11/10 documented as of this encounter
--- OUTSIDE RECORDS SUMMARY | 2023-09-07 11:25 | XMS_ITS | Encounter Summary ---
Author Organization [facility]ly [facility] [place] [address] Care Team Providers Care Food Beverage Manager Name Role Phone Trinh Coates MD Primary Care Provider [phone] Reason for Referral * Diagnostic Test (Routine) - Closed Specialty Diagnoses / Procedures Referred By Diamante marin Referred To Contact Radiology Diagnoses Right internal carotid artery aneurysm Procedures IR Embolization [place]erebral [place] [address] [place] [address] Referral ID Status Reason Start Date Expiration Date V isits Requested Visits Authorized [id number] Closed Specialty Service Requested 05/19/2022 11/19/2023 1 1 Encounter Details Date Type Department Care Team (Late st Contact Info) Description 05/19/2022 [place] [address] [place] [address] Right internal carotid artery aneurysm (Primary Dx) Social History Tobacco Use Types Packs/Day Years [...] 01/22/2024 10:30 AM EST Appointment Mammography/[place] [phone] Ladi Mendosa MD [facility] HEMATOLOGY/[place] [address] 01/30/2024 11:30 AM EST Office Visit Dermatology at [place] [address] [place] [phone] Nilda Luis MD [facility] [address] [address] 02/15/2024 9:30 AM EST [place] [phone] [place] [address] documented as of this encounter Results * IR Embolization Cerebral (07/24/2022 11:37 AM EDT) Anatomical Region Laterality Modality Spine X-Ray Angiograph y Impressions 07/24/2022 1:42 PM EDT 1. ??Today's cerebral angiogram demonstrates successful flow diverting stent embolization of right ICA supraclinoid aneurysm. 2. ??3-D rotational angiographic data was reformatted on a dedicated workstation by Dr. Watts , attending physician. 3. ??Right groin hemostasis achieved with a combination of Angio-Seal 6F vascular closure device and manual pressure. The right common femoral artery and right dorsalis pedis pulses were palpable at the conclusion of the procedure. 4. ??Findings discussed with the patient's family after transfer to MICU. Bedside sign out given to the ICU nurse and Neuro critical care advance practice provider. ATTESTATION Signer name: Joanna Wtats MD I attest that I was present for the entire procedure. I reviewed the stored images and agree with the report as written. Sedation attestation: N/A Thank you for letting us participate in the care of this patient. ??If you are a health care provider and have any questions regarding this report, please contact the number below. ??For patients who have questions please contact the health hemodialysis patient care specialist that requested your imaging first. ? Electronically signed by: Joanna Watts MD, [facility] ([phone]), at 07/24/2022 1:42 PM Narrative 07/24/2022 1:42 PM EDT PROCEDURE NAME: IR EMBOLIZATION CEREBRAL CLINICAL HISTORY: Patient is a 57-year-old woman with a strong family history of ruptured aneurysm. Previously demonstrated 4 mm supraclinoid aneurysm for which intradural component is not excluded. Patient presents today for flow diverting embolization of the aneurysm. COMPARISON: Cerebral angiogram May 19, 2022 OPERATING PHYSICIANS: 1. ??Joanna Watts MD, Interventional Neuroradiology Attending TECHNICAL DETAILS: ACCESS: Right common femoral artery CLOSURE: Angio-Seal 6F vascular closure device MEDICATIONS: 1% Lidocaine 7 ml SC Heparin 5000 U IA Protamine 50 mg IV CONTRAST VOLUME: 60 ml of Visipaque 320 contrast. RADIATION EXPOSURE: Fluoro time: 28.2 mins, Total Air Kerma (K)*: 1398 mGy ANESTHESIA: ??General anesthesia was administered by the adult anesthesiology service. VESSELS SELECTED: 1. ??Right common carotid artery 2. ??Right internal carotid artery 3. ??Right middle cerebral artery VIEWS OBTAINED: 1. ??Single fluoroscopic image of the right hip. 2. ??Right common femoral artery, AP pelvic view 3. ??Right brachiocephalic and right common carotid artery, AP and lateral roadmap images 4. ??Right internal carotid artery, AP and lateral intracranial views 5. ??Right internal carotid artery, 3-D reconstruction images 6. ??Right internal carotid artery, magnified AP and lateral oblique projections 7. ??Right internal carotid artery, magnified AP and lateral oblique working road map projections 8. ??Right internal carotid artery, magnified AP and lateral oblique orientation projections, post stent placement (series 10-11) 9. ??Right internal carotid artery, AP and lateral intracranial views 10. ??Right common carotid artery, AP and lateral cervical and intracranial views COMPLICATIONS: None. ESTIMATED BLOOD LOSS: < 10ml. ?? INTERVENTION: 1. ??Flow diverting stent embolization of a right internal carotid artery aneurysm EQUIPMENT: ?? 1. ??Micropuncture access kit. 2. ??0.035 Bentson Guidewire. 3. ??0.035 flexible Glidewire with WeComicsumo torque device. 4. ??6-Nepalese, 90-cm NeuronMax 5. ??5-Nepalese Envoy guide catheter. 6. ??5-Nepalese, 125-cm Mann II angiographic catheter. 7. ??5-Nepalese NARESH catheter. 8. ??5-Nepalese 0.055 ??x 125 cm Mary Distal Access Catheter 9. ??Phenom 27 microcatheter. 10. ??0.014 Synchro 2 hydrophilic guidewire. 11. ??Pipeline Shield 5.0 x 25mm 12. ??6-Nepalese Angio-Seal Device ?? PROCEDURE COMMENTS: After explaining the risks and benefits of the procedure to the patient, written informed consent was obtained and placed in the patient's chart. Given the aneurysm location, morphology, patient's anatomy, clinical condition, and medical comorbidities, endovascular treatment was considered a safe, effective, and reasonable option. Specifically considered were the treatment alternatives of open surgical procedures, non-invasive medical management, and no treatment. Endovascular treatment was further discussed in detail including the risk. These include, but are not limited to, bleeding, infection, arterial injury, groin hematoma, pseudoaneurysm, hemorrhagic or embolic stroke resulting in sensory loss, paralysis, language dysfunction, and vision loss, as well as contrast allergy, nephropathy, cardiopulmonary dysfunction, coma, and/or . ??The patient understood the risks and wished to proceed with endovascular stent placement treatment. ?? The patient was brought to the angiography suite and placed in the supine position on the angiography table. General anesthesia was induced by the adult anesthesiology service. Both groins were prepped and draped in the [...] femoral artery without difficulty under ultrasound guidance. ??The micropuncture needle was then exchanged for an introducer followed by a 6-Nepalese ??90 cm vascular sheath utilizing a Alyotech wire. The sheath was then double flushed and hooked to heparinized saline via pressure bag. Subsequently a Beyond Credentials 2 angiographic catheter was initially used to attempt selection of the right common carotid artery which was unsuccessful. This was switched out for a 5-Nepalese ??VERT catheter which was used to selectively catheterize the right common carotid artery. The sheath was advanced up to the level of the first carotid loop, and the angiographic catheter and Glidewire were removed. A 5 Nepalese Mary was introduced into the sheath and snaked up to the level of the petrous right internal carotid artery. A Glidewire was introduced into the 5 Nepalese Reanna up to the level of the distal cervical carotid artery, keeping the wire within the catheter. The sheath was then advanced over the system to the level of the distal carotid, straightening out the common carotid loop. The Glidewire was then removed. Multiple angiographic runs were performed. 3-D rotational angiographic data was reformatted on a dedicated workstation by Dr. Watts to obtain a 3-D angiogram. INTERVENTION: For the intervention portion of the procedure, all equipment manipulations were performed using continuous fluoroscopic and roadmap guidance. Heparin was admininstered IV to maintain an ACT over 250 during the intervention portion of the case. Under roadmap guidance, the microcatheter and microwire were used to select the middle cerebral artery M2 segment without difficulty. Tension was released from the system and the microwire was removed. A 5.0 mm x 25 mm device was selected based on the parent vessel measurements. The device was introduced into the rotating hemostatic valve and allowed to backflush through the introducer. The device was then introduced into the microcatheter without difficulty and advanced to the tip of the microcatheter. The distal end of the device was unsheathed in the M1 and the distal device opened without difficulty. The device was withdrawn to the planned distal landing zone proximal to the posterior communicating artery origin. The remainder of the device was then deployed by a combination of pushing device and unsheathing to attain full opening of the stent. Once the stent was fully deployed, the microcatheter was used to recapture the microwire without difficulty, then the distal access catheter was advanced over the microcatheter to improve the wall apposition of the device. Fluoroscopic and angiographic evaluation showed satisfactory device position and excellent wall apposition. Final angiographic evaluation demonstrated contrast stasis in the distal ICA. The microcatheter and microwire were withdrawn from the 5 Nepalese Reanna. The access sheath was withdrawn to the level of the distal common carotid artery, leaving the [address] to maintain access across the right ICA. Radiographic evaluation demonstrated no evidence of intraluminal thrombus, intimal flap, or flow-limiting vasospasm. The sheath was withdrawn into the aortic arch over the distal access catheter, then the distal access catheter was gently withdrawn from the right common carotid and brachiocephalic artery. At the conclusion of the procedure, all catheters and equipment were removed and the right groin was reprepped and draped in the usual sterile fashion. ??A 6 Nepalese Angio-Seal closure device was subsequently prepared and advanced over a wire and deployed, achieving partial hemostasis. Manual pressure was held for an additional 45 minutes with good hemostasis. ??A sterile dressing was placed. ??The [...] groin access into the right common femoral artery had been achieved demonstrating the point of groin puncture to be along the medial portion of the femoral head in the upper third. Subsequent angiographic evaluation shows the puncture site is above the bifurcation and below the inguinal ligament. RIGHT COMMON FEMORAL ARTERY, AP PELVIC VIEW Injection of the right common femoral artery shows puncture site above the level of the bifurcation of the femoral artery and below the takeoff of the inferior epigastric artery, suitable for placement of closure device. There is no evidence of vessel injury, dissection, or flow limitation on this injection. RIGHT BRACHIOCEPHALIC AND RIGHT COMMON CAROTID ARTERY, AP AND LATERAL ROADMAP IMAGES Roadmap images of the right brachiocephalic and right common carotid artery were obtained for angiographic evaluation and distal artery selection planning. Severe tortuosity is noted in the proximal right common carotid artery with 2 180 degree loops in sequence. No abnormality of the carotid bulb. ??There is no abnormality of the cervical segment of the right internal carotid artery. ?? The right external artery and its branches are widely patent. RIGHT INTERNAL CAROTID ARTERY, AP AND LATERAL INTRACRANIAL VIEWS The distal cervical, petrous, and cavernous segments of the right internal carotid artery are smooth and normal in course and caliber. Redemonstration of the medially projecting 4 mm supraclinoid ICA aneurysm which is multilobulated, otherwise similar in appearance to prior angiographic evaluation. The ophthalmic, posterior communicating, and anterior choroidal arteries are patent. ??The right anterior cerebral artery is smooth and normal in course and caliber. No significant flow across the anterior communicating artery complex. ??The right middle cerebral artery is smooth and normal in course and caliber. ??The parenchymal and venous phases are normal. ?? The dural venous sinuses are patent. ??No additional aneurysms or vascular malformations are identified. RIGHT INTERNAL CAROTID ARTERY, 3-D RECONSTRUCTION IMAGES The 3-D rotational angiographic data was reformatted on a dedicated workstation by Dr. Watts to obtain a 3-D angiogram. 3-D reconstruction images were essential for sizing of the flow diverting stent, as well as to obtain appropriate working projections for stent deployment. RIGHT INTERNAL CAROTID ARTERY, MAGNIFIED AP AND LATERAL OBLIQUE PROJECTIONS Two-dimensional working projections adequately demonstrate the proximal and distal plan landing zones for the stent on the lateral view. Access for the middle cerebral artery is well demonstrated on the AP view. RIGHT INTERNAL CAROTID ARTERY, MAGNIFIED AP AND LATERAL OBLIQUE WORKING ROAD MAP PROJECTIONS Roadmap images of the right internal carotid artery were obtained for angiographic evaluation and distal artery selection planning. No significant interval change in comparison with prior angiographic evaluation. RIGHT INTERNAL CAROTID ARTERY, MAGNIFIED AP AND LATERAL OBLIQUE ORIENTATION PROJECTIONS, POST STENT PLACEMENT (SERIES 10-11) Interval placement of a flow diverting stent across the neck of the aneurysm. The distal branches of the middle cerebral and anterior cerebral arteries are patent. No evidence of contrast extravasation, in-stent thrombus, or flow-limiting vasospasm. The proximal and distal landing zones of the stent are well opposed to the wall of the parent vessel. RIGHT INTERNAL CAROTID ARTERY, AP AND LATERAL INTRACRANIAL VIEWS The distal cervical, petrous, and cavernous segments of the right internal carotid artery are smooth and normal in course and caliber. Interval placement of the flow diverting stent across the medially projecting 4 mm supraclinoid ICA aneurysm, which has good wall apposition and is adequately covered by the stent. The ophthalmic, posterior communicating, and anterior choroidal arteries are patent. ?? The right anterior cerebral artery is smooth and normal in course and caliber. ?? The right middle cerebral artery is smooth and normal in course and caliber. ??Incomplete contrast washout is noted in the distal right ICA, otherwise parenchymal and venous phases are normal. ?? The dural venous sinuses are patent. ?? No additional aneurysms or vascular malformations are identified. RIGHT COMMON CAROTID ARTERY, AP AND LATERAL CERVICAL AND INTRACRANIAL VIEWS No abnormality noted in the visualized portion of the right common carotid artery. The branches of the external carotid artery are patent and normal in course and caliber. No focal abnormality of the carotid bulb. There is a focus of vasospasm versus vascular kinking in the proximal right internal carotid artery which is not flow limiting. No evidence of intimal flap or dissection. No evidence of intraluminal thrombus. The intracranial branches of the ICA, middle cerebral, and anterior cerebral arteries are patent. Procedure Note Joanna Watts MD - 07/24/2022 PROCEDURE NAME: IR EMBOLIZATION CEREBRAL CLINICAL HISTORY: Patient is a 57-year-old woman with a strong familyhistory of ruptured aneurysm. Previously demonstrated 4 mm supraclinoid aneurysm forwhich intradural component is not excluded. Patient presents today for flowdiverting embolization of the aneurysm. COMPARISON: Cerebral angiogram May 19, 2022 OPERATING PHYSICIANS: 1. Joanna Watts MD, Interventional Neuroradiology Attending TECHNICAL DETAILS: ACCESS: Right common femoral artery CLOSURE: Angio-Seal 6F vascular closure device MEDICATIONS: 1% Lidocaine 7 ml SC Heparin 5000 U IA Protamine 50 mg IV CONTRAST VOLUME: 60 ml of Visipaque 320 contrast. RADIATION EXPOSURE: Fluoro time: 28.2 mins, Total Air Kerma (K)*: 1398 mGy ANESTHESIA: General anesthesia was administered by the adultanesthesiology service. VESSELS SELECTED: 1. Right common carotid artery 2. Right internal carotid artery 3. Right middle cerebral artery VIEWS OBTAINED: 1. Single fluoroscopic image of the right hip. 2. Right common femoral artery, AP pelvic view 3. Right brachiocephalic and right common carotid artery, AP andlateral roadmap images 4. Right internal carotid artery, AP and lateral intracranial views 5. Right internal carotid artery, 3-D reconstruction images 6. Right internal carotid artery, magnified AP and lateral obliqueprojections 7. Right internal carotid artery, magnified AP and lateral obliqueworking road map projections 8. Right internal carotid artery, magnified AP and lateral obliqueorientation projections, post stent placement (series 10-11) 9. Right internal carotid artery, AP and lateral intracranial views 10. Right common carotid artery, AP and lateral cervical and intracranialviews COMPLICATIONS: None. ESTIMATED BLOOD LOSS: < 10ml. INTERVENTION: 1. Flow diverting stent embolization of a right internal carotid artery aneurysm EQUIPMENT: 1. Micropuncture access kit. 2. 0.035 Bentson Guidewire. 3. 0.035 flexible Glidewire with WeComicsumEmpower Futures torque device. 4. 6-Nepalese, 90-cm NeuronMax 5. 5-Nepalese Envoy guide catheter. 6. 5-Nepalese, 125-cm Mann II angiographic catheter. 7. 5-Nepalese NARESH catheter. 8. 5-Nepalese 0.055 x 125 cm Mary Distal Access Catheter 9. Phenom 27 microcatheter. 10. 0.014 Synchro 2 hydrophilic guidewire. 11. Pipeline Shield 5.0 x 25mm 12. 6-Nepalese Angio-Seal Device PROCEDURE COMMENTS: After explaining the risks and benefits of the procedure to the patient,written informed consent was obtained and placed in the patient's chart. Giventhe aneurysm location, morphology, patient's anatomy, clinical condition,and medical comorbidities, endovascular treatment was considered a safe,effective, and reasonable option. Specifically considered were the treatmentalternatives of open surgical procedures, non-invasive medical management, and notreatment. Endovascular treatment was further discussed in detail including the risk.These include, but are not limited to, bleeding, infection, arterial injury,groin hematoma, pseudoaneurysm, hemorrhagic or embolic stroke resulting insensory loss, paralysis, language dysfunction, and vision loss, as well ascontrast allergy, nephropathy, cardiopulmonary dysfunction, coma, and/or .The patient understood the risks and wished to proceed with endovascularstent placement treatment. The patient was brought to the angiography suite and placed in thesupine position on the angiography table. General anesthesia was induced by [facility] anesthesiology service. Both groins were prepped and draped in the usualsterile fashion. A hard stop time-out was then performed to verify thepatient's identity, the planned procedure, and procedure location. After properpatient identification and verification of the planned procedure, the procedure continued. The right groin was then infiltrated with 1% buffered lidocaine solution.A micropuncture needle was used to access the right common femoral arterywithout difficulty under ultrasound guidance. The micropuncture needle was then exchanged for an introducer followed by a 6-Nepalese 90 cm vascularsheath utilizing a Alyotech wire. The sheath was then double flushed and hookedto heparinized saline via pressure bag. Subsequently a Beyond Credentials 2angiographic catheter was initially used to attempt selection of the right commoncarotid artery which was unsuccessful. This was switched out for a 5-FrenchVERT catheter which was used to selectively catheterize the right commoncarotid artery. The sheath was advanced up to the level of the first carotid loop,and the angiographic catheter and Glidewire were removed. A 5 Nepalese Sofiawas introduced into the sheath and snaked up to the level of the petrousright internal carotid artery. A Glidewire was introduced into the 5 FrenchSophia up to the level of the distal cervical carotid artery, keeping the wirewithin the catheter. The sheath was then advanced over the system to the level ofthe distal carotid, straightening out the common carotid loop. The Glidewirewas then removed. Multiple angiographic runs were performed. 3-D rotational angiographic data was reformatted on a dedicatedworkstation by Dr. Watts to obtain a 3-D angiogram. INTERVENTION: For the intervention portion of the procedure, all equipment manipulationswere performed using continuous fluoroscopic and roadmap guidance. Heparinwas admininstered IV to maintain an ACT over 250 during the interventionportion of the case. Under roadmap guidance, the microcatheter and microwire were used toselect the middle cerebral artery M2 segment without difficulty. Tension was releasedfrom the system and the microwire was removed. A 5.0 mm x 25 mm device was selected based on the parent vesselmeasurements. The device was introduced into the rotating hemostatic valve and allowedto backflush through the introducer. The device was then introduced intothe microcatheter without difficulty and advanced to the tip of themicrocatheter. The distal end of the device was unsheathed in the M1 and the distaldevice opened without difficulty. The device was withdrawn to the planneddistal landing zone proximal to the posterior communicating artery origin. The remainder of the device was then deployed by a combination of pushingdevice and unsheathing to attain full opening of the stent. Once the stent wasfully deployed, the microcatheter was used to recapture the microwire without difficulty, then the distal access catheter was advanced over themicrocatheter to improve the wall apposition of the device. Fluoroscopic and angiographic evaluation showed satisfactory deviceposition and excellent wall apposition. Final angiographic evaluation demonstratedcontrast stasis in the distal ICA. The microcatheter and microwire were withdrawnfrom the 5 Nepalese Reanna. The access sheath was withdrawn to the level of thedistal common carotid artery, leaving the [address] to maintainaccess across the right ICA. Radiographic evaluation demonstrated no evidenceof intraluminal thrombus, intimal flap, or flow-limiting vasospasm. Thesheath was withdrawn into the aortic arch over the distal access catheter, then thedistal access catheter was gently withdrawn from the right common carotid and brachiocephalic artery. At the conclusion of the procedure, all catheters and equipment wereremoved and the right groin was reprepped and draped in the usual sterile fashion. A6 Nepalese Angio-Seal closure device was subsequently prepared and advancedover a wire and deployed, achieving partial hemostasis. Manual pressure was heldfor an additional 45 minutes with good hemostasis. A sterile dressing wasplaced. The dorsalis pedis pulses were stable bilaterally at the conclusion of the procedure. The patient tolerated the procedure well and left interventional suite instable condition. FINDINGS: The following is a detailed description of each angiographic run: SINGLE FLUOROSCOPIC IMAGE OF THE RIGHT HIP. A single spot radiograph was obtained after the groin access into theright common femoral artery had been achieved demonstrating the point of groin puncture to be along the medial portion of the femoral head in the upperthird. Subsequent angiographic evaluation shows the puncture site is above the bifurcation and below the inguinal ligament. RIGHT COMMON FEMORAL ARTERY, AP PELVIC VIEW Injection of the right common femoral artery shows puncture site above thelevel of the bifurcation of the femoral artery and below the takeoff of theinferior epigastric artery, suitable for placement of closure device. There is no evidence of vessel injury, dissection, or flow limitation on thisinjection. RIGHT BRACHIOCEPHALIC AND RIGHT COMMON CAROTID ARTERY, AP AND LATERALROADMAP IMAGES Roadmap images of the right brachiocephalic and right common carotidartery were obtained for angiographic evaluation and distal artery selectionplanning. Severe tortuosity is noted in the proximal right common carotid arterywith 2 180 degree loops in sequence. No abnormality of the carotid bulb. Thereis no abnormality of the cervical segment of the right internal carotid artery.The right external artery and its branches are widely patent. RIGHT INTERNAL CAROTID ARTERY, AP AND LATERAL INTRACRANIAL VIEWS The distal cervical, petrous, and cavernous segments of the rightinternal carotid artery are smooth and normal in course and caliber.Redemonstration of the medially projecting 4 mm supraclinoid ICA aneurysm which ismultilobulated, otherwise similar in appearance to prior angiographic evaluation. The ophthalmic, posterior communicating, and anterior choroidal arteries arepatent. The right anterior cerebral artery is smooth and normal in course andcaliber. No significant flow across the anterior communicating artery complex.The right middle cerebral artery is smooth and normal in course and caliber.The parenchymal and venous phases are normal. The dural venous sinuses arepatent. No additional aneurysms or vascular malformations are identified. RIGHT INTERNAL CAROTID ARTERY, 3-D RECONSTRUCTION IMAGES The 3-D rotational angiographic data was reformatted on a dedicatedworkstation by Dr. Watts to obtain a 3-D angiogram. 3-D reconstruction images were essential for sizing of the flow diverting stent, as well as to obtain appropriate working projections for stent deployment. RIGHT INTERNAL CAROTID ARTERY, MAGNIFIED AP AND LATERAL OBLIQUEPROJECTIONS Two-dimensional working projections adequately demonstrate the proximaland distal plan landing zones for the stent on the lateral view. Access forthe middle cerebral artery is well demonstrated on the AP view. RIGHT INTERNAL CAROTID ARTERY, MAGNIFIED AP AND LATERAL OBLIQUE WORKINGROAD MAP PROJECTIONS Roadmap images of the right internal carotid artery were obtained for angiographic evaluation and distal artery selection planning. Nosignificant interval change in comparison with prior angiographic evaluation. RIGHT INTERNAL CAROTID ARTERY, MAGNIFIED AP AND LATERAL OBLIQUEORIENTATION PROJECTIONS, POST STENT PLACEMENT (SERIES 10-11) Interval placement of a flow diverting stent across the neck of theaneurysm. The distal branches of the middle cerebral and anterior cerebral arteriesare patent. No evidence of contrast extravasation, in-stent thrombus, or flow-limiting vasospasm. The proximal and distal landing zones of thestent are well opposed to the wall of the parent vessel. RIGHT INTERNAL CAROTID ARTERY, AP AND LATERAL INTRACRANIAL VIEWS The distal cervical, petrous, and cavernous segments of the rightinternal carotid artery are smooth and normal in course and caliber. Intervalplacement of the flow diverting stent across the medially projecting 4 mmsupraclinoid ICA aneurysm, which has good wall apposition and is adequately covered by thestent. The ophthalmic, posterior communicating, and anterior choroidal arteriesare patent. The right anterior cerebral artery is smooth and normal incourse and caliber. The right middle cerebral artery is smooth and normal in courseand caliber. Incomplete contrast washout is noted in the distal right ICA, otherwise parenchymal and venous phases are normal. The dural venoussinuses are patent. No additional aneurysms or vascular malformations areidentified. RIGHT COMMON CAROTID ARTERY, AP AND LATERAL CERVICAL AND INTRACRANIALVIEWS No abnormality noted in the visualized portion of the right commoncarotid artery. The branches of the external carotid artery are patent and normalin course and caliber. No focal abnormality of the carotid bulb. There is afocus of vasospasm versus vascular kinking in the proximal right internalcarotid artery which is not flow limiting. No evidence of intimal flap ordissection. No evidence of intraluminal thrombus. The intracranial branches of the ICA,middle cerebral, and anterior cerebral arteries are patent. IMPRESSION 1. 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 2. 3-D rotational angiographic data was reformatted on a dedicatedworkstation by Dr. Watts , attending physician. 3. Right groin hemostasis achieved with a combination of Angio-Seal 6Fvascular closure device and manual pressure. The right common femoral artery andright dorsalis pedis pulses were palpable at the conclusion of the procedure. 4. Findings discussed with the patient's family after transfer to MICU.Bedside sign out given to the ICU nurse and Neuro critical care advance practice provider. ATTESTATION Signer name: Joanna Watts MD I attest that I was present for the entire procedure. I reviewed thestored images and agree with the report as written. Sedation attestation: N/A Thank you for letting us participate in the care of this patient. If youare a health care provider and have any questions regarding this report,please contact the number below. For patients who have questions please contactthe health hemodialysis patient care specialist that requested your imaging first. 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
--- OUTSIDE RECORDS SUMMARY | 2023-09-07 11:25 | XMS_ITS | Encounter Summary ---
[place] [address] Care Team Providers Care Wage Conciliator Name Role Phone Trinh Coates MD Primary Care Provider [phone] Reason for Visit * Reason Comments Prior Authorization Stelara 45mg/0.5 mL SOSY Encounter Details Date Type Department Care Team (Late st Contact Info) Description 05/16/2022 Specialty [place] [address] Mike Cavazos, MEDICAL OFFICE TECHNOLOGY INSTRUCTOR Social History Tobacco Use Types Packs/Day Years [...] encounter Progress Notes * Mike Cavazos - 05/16/2022 8:33 AM EDT [facility], Medication Prior Authorization Submission Patient: Wendy Sandoval Patient : 1965 Patient Address: [address] [place] [facility] [address] (home) Medication Name: STELARA 45 MG/0.5 ML SUBCUTANEOUS SYRINGE Medication ID: [id number] Subscriber Insurance: Nanalysis (ADV) Subscriber Insurance Comment: Fax: Physician: NILDA LUIS Physician Comment: Sent Via: [facility] La: [id number] Ref/Case/PA#: [id number] Medication Strength Frequency Requested: Inject the contents of 1 syringe (45 mg) subcutaneously once every 12 weeks Qty/Day Supply: New Start: Renewal Diagnosis & ICD-10 Code: L40.9 Psoriasis Patient Notified: Yes Submission Notes: None Mike Cavazos 05/16/22 8:36 AM * Mike Cavazos - 05/16/2022 8:33 AM EDT [facility], Prior Authorization Approval Medication Name: STELARA 45 MG/0.5 ML SUBCUTANEOUS SYRINGE Medication ID: [id number] Approval Dates: 09/14/2021 to 09/14/2022 Insurance requirements/notes: None Other Notes: None Case/Reference #: Approval notification Received via: Telephone Copay: Copay assistance: Other (Enter Comment) Copay Notes: Unable to obtain copay information as the patient fills with [facility] Specialty Insurance mandated Pharmacy: [facility] Specialty Fillable at [facility]: No Patient Notified: Yes Pharmacy staff will be reaching out to the patient to inform them of [facility]. If applicable, a pharmacist will speak with the patient to offer our specialty pharmacy services and to arrange delivery of their medication. Mike Cavazos 05/16/22 3:06 PM documented in this encounter Plan of Treatment Upcoming Encounters Date Type Department Care Team (Late st Contact Info) Description 01/22/2024 10:30 AM EST Appointment Mammography/[place] [address] [facility] HEMATOLOGY/[place] [address] 01/30/2024 11:30 AM EST Office Visit Dermatology at [facility] [address] [place] [address] [facility] [address] [place] [address] 02/15/2024 9:30 AM EST [place] [address] [place] [address] documented as of this encounter Visit Diagnoses Not on filedocumented in this encounter Care Teams Wage Conciliator Relationship Specialty Start Date End Date Trinh Coates MD [facility] [address] [facility] [address] [place] [address] PCP - General 01/11/10 documented as of this encounter
--- OUTSIDE RECORDS SUMMARY | 2023-09-07 11:25 | XMS_ITS | Encounter Summary ---
Author Organization [facility] Address [facility]ita [facility] [place] [address] Care Team Providers Care Print Room Worker Name Role Phone Trinh Coates MD Primary Care Provider [phone] Encounter Details Date Type Department Care Team (Late st Contact Info) Description 07/20/2022 2:30 PM EDT [place] [address] Social History Tobacco Use Types Packs/Day Years [...] 01/22/2024 10:30 AM EST Appointment Mammography/[place] [address] Ladi Mendosa MD [facility] HEMATOLOGY/[place] [address] 01/30/2024 11:30 AM EST Office Visit Dermatology at [facility] [address] [place] [address] Nilda Luis MD [facility] [address] [place] [address] 02/15/2024 9:30 AM EST [place] [phone] [place] [address] documented as of this encounter Visit Diagnoses Not on filedocumented in this encounter Care Teams Print Room Worker Relationship Specialty Start Date End Date Trinh Coates MD [facility] [address] [place] [address] PCP - General 01/11/10 documented as of this encounter
--- OUTSIDE RECORDS SUMMARY | 2023-09-07 11:25 | XMS_ITS | Encounter Summary ---
Author Organization [facility] Address [facility] [place] [address] Care Team Providers Care Salesperson Recreational Vehicles Name Role Phone Trinh Coates MD Primary Care Provider [phone] Reason for Visit * Reason Comments Medication Refill Encounter Details Date Type Department Care Team (Late st Contact Info) Description 05/16/2022 Refill Dermatology at [facility] [address] [place] [address] Nilda Luis MD [facility] [place] [address] Psoriasis Social History Tobacco Use Types Packs/Day [...] Telephone Encounter - Cristina Gleason LPN - 05/16/2022 7:23 AM EDT Medication(s) requested to refill Stelara Last visit: 05/10/21 Follow up recommended one year F/U Scheduled: 06/27/22 Assessment/Plan for this/these medications: psoriasis Appropriate to refill: pending MD approval Special Considerations: has a follow up and will need labs at that time, last labs 04/2021 Order/orders pended and routed to Dr Luis for review and approval documented in this encounter Plan of Treatment Upcoming Encounters Date Type Department Care Team (Late st Contact Info) Description 01/22/2024 10:30 AM EST Appointment Mammography[place] [address] Ladi Mendosa MD [facility] HEMATOLOGY/[place] [address] 01/30/2024 11:30 AM EST Office Visit Dermatology at [place] [address] [place] [address] Nilda Luis MD [facility] [address] [place] [address] 02/15/2024 9:30 AM EST [place] [address] [place] [address] documented as of this encounter Visit Diagnoses Diagnosis Psoriasis Other psoriasis documented in this encounter Care Teams Salesperson Recreational Vehicles Relationship Specialty Start Date End Date Trinh Coates MD [facility] [address] [place] [address] PCP - General 01/11/10 documented as of this encounter
--- OUTSIDE RECORDS SUMMARY | 2023-09-07 11:25 | XMS_ITS | Encounter Summary ---
Author Organization [facility] Address [facility] [place] [address] Care Team Providers Care Decorator Store Name Role Phone Trinh Coates MD Primary Care Provider [phone] Encounter Details Date Type Department Care Team (Latest Contact Info) Description 07/20/2022 Travel Social History Tobacco Use Types Packs/Day [...] 01/22/2024 10:30 AM EST Appointment Mammography[place] [address] Ladi Mendosa MD [facility] HEMATOLOGY/[place] [address] 01/30/2024 11:30 AM EST Office Visit Dermatology at [facility] [address] [place] [address] Nilda Luis MD [facility] [address] [facility] [address] 02/15/2024 9:30 AM EST [place] [address] [place] [address] documented as of this encounter Visit Diagnoses Not on filedocumented in this encounter Care Teams Decorator Store Relationship Specialty Start Date End Date Trinh Coates MD [facility] [address] [facility] [address] [place] [address] PCP - General 01/11/10 documented as of this encounter
--- OUTSIDE RECORDS SUMMARY | 2023-09-07 11:25 | XMS_ITS | Encounter Summary ---
Author Organization [facility] Address [facility] [place] [address] Care Team Providers Care Csr Retail Name Role Phone Trinh Coates MD Primary Care Provider [phone] Reason for Visit * Reason Comments Skin Check Encounter Details Date Type Department Care Team (Late st Contact Info) Description 2022 2:15 PM EDT Office Visit Dermatology at [place] [address] [place] [address] Jay Luis MD [facility] [place] [address] Psoriasis; History of dysplastic nevus; High risk medication use; Lentigines; Seborrheic keratoses; AK (actinic keratosis) Social History Tobacco Use Types Packs/Day Years [...] Progress Notes * Jay Luis MD - 2022 2:15 PM EDT Images from the original note were not included. DEPARTMENT OF DERMATOLOGY Medical Dermatology Clinic Provider: JAY LUIS MD Patient's preferred name Wendy Preferred contact method for results [x]?Phone []?myD-H []?Letter Detailed phone message OK? Yes Are there any other people with whom we may discuss your care? Yes ?? Past Medical History Date, location, treatment Melanoma No Dysplastic nevi 09/08/2013: left neck,??Atypical lentiginous junctional melanocytic proliferation, S/P WLE 10/10/2013 SCC No BCC No AKs No UV Exposure & Protection ?? Other relevant past medical history + Psoriasis (since age 16), started Stelara 09/12/18; previous treatments: triamcinolone ointment, calcipotriene, clobetasol cream,??MG217 + H/O estrogen+ breast cancer + H/O Hyperparathyroidism Family History Details Melanoma No NMSC No Other relevant family history Psoriasis (Mother) Social History Occupation: Works at [employer] Hobbies: Other: ?? Pre-Procedure Questions Details Allergy to lidocaine, epinephrine, Dermabond, chlorhexidine, or adhesives No Bleeding disorder or blood thinners No Pacemaker, defibrillator, deep brain stimulator, cochlear implant No History of Present Illness: Wendy Sandoval is a 57 y.o. Patient returns to clinic today for a full skin exam with the following concerns: - She notes a dry lesion on the right upper cutaneous lip. She intermittently peels the skin off with her fingertips. She has been frequently reapplying Chapstick. - She notes an occasionally inflamed lesion on the right lateral thigh. - She would like to have a lesion on the right cheek that was previously treated with cryotherapy reassessed today. - Wendy's psoriasis is well-controlled with her current Q12W injection of Rx: Stelara 45mg/0.5mL.She denies any noted side effects from the medication. She denies any recent viral illnesses. - Of note, Wendy is scheduled for surgery next week to treat a AXEL aneurysm. Last visit at Dermatology: 05/10/2021 Last visit with this provider: 05/10/2021 Medications: Reviewed in eD-[facility] Allergies: Reviewed in [...] the findings below. Genitalia not examined. Assessment/Plan 1. Psoriasis - No active disease today. - Continue Rx: Stelara 45mg SC Q12W. - Labs (CBC, CMP, and Q-Gold) ordered today. 2. History of Dysplastic Nevus - Well healed scar on the left neck. - NER; will continue to clinically monitor. 3. Lentigines - Scattered, light-brown, evenly pigmented, well-demarcated macules on sun-exposed areas of the trunk and extremities. - No worrisome pigmented lesions. Discussed benign nature of lesions and provided reassurance. Willcontinue to monitor. 4. Seborrheic Keratoses - Stuck on, waxy papules on the face, trunk, and extremities. - Benign. No treatment needed. 5. Actinic Keratosis - Ill-defined, gritty papule on the upper right cutaneous lip (x1). - Explained etiology, natural history and premalignant potential of these lesions. - Patient opted to proceed with liquid nitrogen. - Patient should return to return to clinic for re-evaluation if lesion does not resolve with this treatment. Procedure: Destruction of lesion with cryotherapy. Location: As noted above Number: 1 Discussed procedure and expectations including risks and benefits. Verbal consent obtained. Treatedwith LN2. There were no complications. Patient tolerated the procedure well. Post-procedure expectations and wound care were reviewed. Other: ??? N/A RTC: 1 year for FSE []Note routed to corporate legal secretary [x]Recall placed in scheduling system []Appointment scheduled at checkout Scribe attestation: RANDY Villatoro has performed the documentation for this encounter in the presence of and acting as a scribe for JAY LUIS MD. I performed the above scribed service and agree with the accuracy of the documentation in this encounter. Reviewed and signed by: JAY LUIS MD Dermatology [facility] documented in this encounter Plan of Treatment Upcoming Encounters Date Type Department Care Team (Late st Contact Info) Description 01/22/2024 10:30 AM EST Appointment Mammography/[place] [address] Ladi Mendosa MD [facility] HEMATOLOGY/[place] [address] 01/30/2024 11:30 AM EST Office Visit Dermatology at [facility] [address] [place] [address] Jay Luis MD [facility] [address] [place] [address] 02/15/2024 9:30 AM EST [place] [address] [place] [address] documented as of this encounter Results * QuantiFERON-TB Gold (2022 3:01 PM EDT) QFT Nil 0.005 IU/mL [facility] QFT TB Ag1-Nil 0.012 IU/mL [facility] QFT TB Ag2-Nil 0.014 IU/mL [facility] QFT Mitogen-Nil 9.995 IU/mL [facility] Quantiferon TB [...] immunological factors. [facility] Blood 2022 3:01 PM EDT 06/28/2022 9:38 AM EDT Narrative Resulting Agency Comment Spec In Lab Jay Luis MD CHEMISTRY ORDERABLE S [facility] [place] [address] * (ABNORMAL) Comprehensive metabolic panel (non-fasting) (2022 3:01 PM EDT) Glucose Lvl 100 65 - 199 mg/dL [facility] Comment:Diabetes: >=200 mg/d L plus symptoms BUN 34(H) 8 - 18 mg/dL [facility] Creatinine 1.60(H) 0.70 - 1.20 mg/dL [facility] Sodium 130(L) 135 - 145 mmol/L [facility] Potassium 4.2 3.5 - 5.0 mmol/L [facility] Comment: Please note: ??Patients with WBC >100,000 may have falsely elevated Potassium levels. ??For accurate Potassium quantification in these patients send serum separator tube (gold top) for subsequent determinations. ??Contact the Clinical Chemistry Laboratory if there are any questions. Chloride 97(L) 98 - 107 mmol/L [facility] CO2 24 22 - 31 mmol/L [facility] Anion Gap 9 5 - 15 mmol/L [facility] Calcium 9.3 8.5 - 10.5 mg/dL [facility] Total Protein 6.7 6.1 - 8.0 g/dL [facility] Albumin 4.3 3.2 - 5.2 g/dL [facility] AST 13 0 - 30 unit/L [facility] ALT 16 0 - 30 unit/L [facility] Alk Phos 90 35 - 105 unit/L [facility] Total Bilirubin 0.3 0.2 - 1.3 mg/dL [facility] Estimated GFR 37(L) >=60 mL/min/1. 73 m?? [facility] [...] and symptoms in addition to eGFR. Blood 2022 3:01 PM EDT 2022 4:44 PM EDT Narrative Resulting Agency Comment Spec In Lab Jay Luis MD CHEMISTRY ORDERABLE S [facility] [place] [address] documented in this encounter Visit Diagnoses Diagnosis Psoriasis Other psoriasis History of dysplastic nevus Personal history of diseases of skin and subcutaneous tissue High risk medication use Encounter for long-term (current) use of other medications Lentigines Other dyschromia Seborrheic keratoses AK (actinic keratosis) Actinic keratosis documented in this encounter Care Teams Csr Retail Relationship Specialty Start Date End Date Trinh Coates MD [address] [place] [address] PCP - General 01/11/10 documented as of this encounter
--- OUTSIDE RECORDS SUMMARY | 2023-09-07 11:25 | XMS_ITS | Encounter Summary ---
Author Organization [facility] [place] [address] Care Team Providers Care Circuit Judge Name Role Phone Trinh Coates MD Primary Care Provider [phone] Encounter Details Date Type Department Care Team (Latest Contact Info) Description 2022 3:00 PM EDT Laboratory Appointment Lab at [facility] [address] [place] [address] High risk medication use Social History Tobacco [...] Progress Notes * Nilda Luis MD - 2022 3:00 PM EDT CD, The labs show an elevated creatinine (kidney function) and low sodium. I would like her to get a repeat bmp. If the labs are abnormal on recheck I'd like her to follow up with her PCP. Sometimes blood pressure medicine can contribute to abnormal labs like these, but an opinion from her PCP would bebest. Labs are OK to continue Stelara. Please notify patient. documented in this encounter Plan of Treatment Upcoming Encounters Date Type Department Care Team (Late st Contact Info) Description 01/22/2024 10:30 AM EST Appointment Mammography/[place] [address] Randy Mendosa MD [facility] HEMATOLOGY/[place] [address] 01/30/2024 11:30 AM EST Office Visit Dermatology at [facility] [address] [place] [phone] Nilda Luis MD [facility] [address] [address] 02/15/2024 9:30 AM EST [place] [address] [place] [address] documented as of this encounter Procedures Procedure Name Priority Date/Time Associated Diagnosis Comments HC QUANTIFERON Routine 2022 3:01 PM EDT High risk medication use HEMOGRAM Routine 2022 3:01 PM EDT High risk medication use DIFFERENTIAL, AUTOMATED Routine 2022 3:01 PM EDT High risk medication use HC CBC,PLT & AUTO DIFF Routine 2022 3:01 PM EDT High risk medication use HC VENIPUNCTURE Routine 2022 3:01 PM EDT High risk medication use documented in this encounter Results * (ABNORMAL) Differential, Automated (2022 3:01 PM EDT) Neutrophils % 64.9 % [facility] Neutr Abs (ANC) 5.92 1.70 - 6.10 x10(3)/mc L [facility] Lymphocytes % 19.0 % [facility] Lymphocytes Abs 1.7 0.9 - 3.2 x10(3)/[facility] Monocytes % 8.5 % [facility] Monocyte Abs 0.8 0.3 - 0.9 x10(3)/[facility] Eosinophils % 5.6 % [facility] Eosinophils Abs 0.5(H) 0.0 - 0.4 x10(3)/[facility] Basophils % 1.6 % [facility] Basophils Abs 0.2(H) 0.0 - 0.1 x10(3)/[facility] Immature Gran % 0.40 % [facility] Comment: Immature granulocytes(IG's)percentage and absolute count will include metamyelocytes, myelocytes, and promyelocytes. Blood smears from CBCs yielding IG's will be scanned manually for concordance. If this scan disagrees with the automated IG or if promyelocytes are noted, a manual differential will be performed. Nova Gran Abs 0.04 0.00 - 0.04 x10(3)/[facility] Blood 2022 3:01 PM EDT 2022 4:12 PM EDT Narrative Resulting Agency Comment Spec In Lab Nilda Luis MD HEMATOLOGY ORDERABL ES [facility] [place] [address] * (ABNORMAL) Hemogram (2022 3:01 PM EDT) WBC 9.1 4.0 - 9.5 x10(3)/[facility] RBC 4.05 4.00 - 5.21 x10(6)/[facility] Hemoglobin 13.0 11.7 - 15.5 g/dL [facility] Hematocrit 39.4 35.7 - 45.8 % [facility] MCV 97.3(H) 82.6 - 94.4 fL [facility] MCH 32.1(H) 27.1 - 32.0 pg [facility] MCHC 33.0 31.7 - 35.0 g/dL [facility] Platelets 343 145 - 357 x10(3)/[facility] RDWSD 50.4(H) 37.0 - 46.0 [facility] RDWCV 13.9 11.5 - 14.1 % [facility] MPV 9.9 7.6 - 12.9 [facility] nRBC % Auto 0.0 % [facility] nRBC Abs Auto 0.000 0.000 - 0.000 x10(3)/[facility] Blood 2022 3:01 PM EDT 2022 4:12 PM EDT Narrative Resulting Agency Comment Spec In Lab Nilda Luis MD HEMATOLOGY ORDERABL ES Performing Organization Address City/State/[facility] Co de Phone Number [facility] [place] [address] * QuantiFERON-TB Gold (2022 3:01 PM EDT) QFT Nil 0.005 IU/mL [facility] QFT TB Ag1-Nil 0.012 IU/mL [facility] QFT TB Ag2-Nil 0.014 IU/mL [facility] QFT Mitogen-Nil 9.995 IU/mL [facility] Quantiferon TB Negative Negative [facility] [place] Quantiferon TB Interp M. tuberculosis infection NOT [...] affect immune function, or other immunological factors. [facility] Blood 2022 3:01 PM EDT 06/28/2022 9:38 AM EDT Narrative Resulting Agency Comment Spec In Lab Nilda Luis MD CHEMISTRY ORDERABLE S [facility] [place] [address] * (ABNORMAL) Comprehensive metabolic panel (non-fasting) (2022 3:01 PM EDT) Pathologist [facility] Glucose Lvl 100 65 - 199 mg/dL [facility] Comment:Diabetes: >=200 mg/d L plus symptoms BUN 34(H) 8 - 18 mg/dL [facility] Creatinine 1.60(H) 0.70 - 1.20 mg/dL [facility] Sodium 130(L) 135 - 145 mmol/L [facility] Potassium 4.2 3.5 - 5.0 mmol/L [facility] Comment: Please note: ??Patients with WBC >100,000 may have falsely elevated Potassium levels. ??For accurate Potassium quantification in these patients send serum separator tube (gold top) for subsequent determinations. ??Contact the Clinical Chemistry Laboratory if there are any questions. Chloride 97(L) 98 - 107 mmol/L [facility] CO2 24 22 - 31 mmol/L [facility] Anion Gap 9 5 - 15 mmol/L [facility] Calcium 9.3 8.5 - 10.5 mg/dL [facility] Total Protein 6.7 6.1 - 8.0 g/dL [facility] Albumin 4.3 3.2 - 5.2 g/dL [facility] AST 13 0 - 30 unit/L [facility] ALT 16 0 - 30 unit/L [facility] Alk Phos 90 35 - 105 unit/L [facility] Total Bilirubin 0.3 0.2 - 1.3 mg/dL [facility] Estimated GFR 37(L) >=60 mL/min/1. 73 m?? [facility] Comment: This patient's estimated GFR [...] Lab Nilda Luis MD CHEMISTRY ORDERABLE S Performing Organization Address City/State/[facility] Co de Phone Number [facility] [place] [address] documented in this encounter Visit Diagnoses Diagnosis High risk medication use Encounter for long-term (current) use of other medications documented in this encounter Care Teams Circuit Judge Relationship Specialty Start Date End Date Trinh Coates MD [address] [place] [address] PCP - General 01/11/10 documented as of this encounter
--- OUTSIDE RECORDS SUMMARY | 2023-09-07 11:25 | XMS_ITS | Encounter Summary ---
Author Organization [facility] Address [facility] [place] [address] Care Team Providers Care Senior Sales Operations Analyst Name Role Phone Trinh Coates MD Primary Care Provider [phone] Encounter Details Date Type Department Care Team (Latest Contact Info) Description 04/07/2022 Travel Social History Tobacco Use Types Packs/Day [...] 01/22/2024 10:30 AM EST Appointment Mammography/[place] [address] Ladi Mendosa MD [facility] HEMATOLOGY/[place] [address] 01/30/2024 11:30 AM EST Office Visit Dermatology at [facility] [address] [place] [phone] Nilda Luis MD [facility] [address] [address] 02/15/2024 9:30 AM EST [place] [address] [place] [address] documented as of this encounter Visit Diagnoses Not on filedocumented in this encounter Care Teams Senior Sales Operations Analyst Relationship Specialty Start Date End Date Trinh Coates MD [facility] [address] [place] [address] PCP - General 01/11/10 documented as of this encounter
--- OUTSIDE RECORDS SUMMARY | 2023-09-07 11:25 | XMS_ITS | Encounter Summary ---
Author Organization [facility] Address [facility] [place] [address] Care Team Providers Care Sales Project Coordinator Name Role Phone Trinh Coates MD Primary Care Provider [phone] Encounter Details Date Type Department Care Team (Latest Contact Info) Description 2022 Travel Social History Tobacco Use Types Packs/Day [...] 01/22/2024 10:30 AM EST Appointment Mammography/[place] [address] Ladi Mendosa MD [facility] HEMATOLOGY/[place] [address] 01/30/2024 11:30 AM EST Office Visit Dermatology at [facility] [address] [place] [phone] Nilda Luis MD [facility] [address] [place] [address] 02/15/2024 9:30 AM EST [place]ointment [place] [address] [place] [address] documented as of this encounter Visit Diagnoses Not on filedocumented in this encounter Care Teams Sales Project Coordinator Relationship Specialty Start Date End Date Trinh Coates MD [facility] [address] [place] [address] PCP - General 01/11/10 documented as of this encounter
--- OUTSIDE RECORDS SUMMARY | 2023-09-07 11:25 | XMS_ITS | Encounter Summary ---
Author Organization [facility] Address [facility] [place] [address] Care Team Providers Care Auto Damage Trainee Name Role Phone Trinh Coates MD Primary Care Provider [phone] Encounter Details Date Type Department Care Team (Late st Contact Info) Description 04/14/2022 Telephone Dermatology at [facility] [address] [place] [address] Nilda Luis MD [facility] [address] [place] [address] Social History Tobacco Use Types Packs/Day Years [...] * Telephone Encounter - Pat Durbin - 04/14/2022 8:19 AM EST I left a message for Wendy Martinezmoreno returning her voicemail to get scheduled with Dr. Luis. documented in this encounter Plan of Treatment Upcoming Encounters Date Type Department Care Team (Late st Contact Info) Description 01/22/2024 10:30 AM EST Appointment Mammography/[place] [address] Ladi Mendosa MD [facility] HEMATOLOGY/[place] [address] 01/30/2024 11:30 AM EST Office Visit Dermatology at [facility] [address] [place] [phone] Nilda Luis MD [facility] [address] [place] [address] 02/15/2024 9:30 AM EST Appointment [place] [phone] [place] [address] documented as of this encounter Visit Diagnoses Not on filedocumented in this encounter Care Teams Auto Damage Trainee Relationship Specialty Start Date End Date Trinh Coates MD [facility] [address] [place] [address] PCP - General 01/11/10 documented as of this encounter
--- OUTSIDE RECORDS SUMMARY | 2023-09-07 11:25 | XMS_ITS | Encounter Summary ---
Author Organization Formerly [facility] [place] [address] Care Team Providers Care Travertine Installer Name Role Phone Trinh Coates MD Primary Care Provider [phone] Reason for Visit * Auth/Cert (Routine) Specialty Diagnoses / Procedures Referred By Diamante marin Referred To Contact Diagnoses Cerebral aneurysm, nonruptured AXEL pipeline Procedures PRO PERM OCCLUSION/EMBOLIZATION, PERCUT, FOOD TECHNOLOGIST @TRANSCATHETER OCCLUSION/EMBOLIZATION FOR TUMOR DESTRUCTION (WRVU 20.12) [place] [address] [facility] Referral ID Status Reason Start Date Expiration Date Visits Re quested Visits Authorized [id number] 1 1 Encounter Details Date Type Department Care Team (Late st Contact Info) Description 07/24/2022 7:37 AM ED[place] [address] Bill Orlando MD [facility] [place] [address] Richelle Aguillon [place] [address] Anesthesia Record Procedure Summary Procedure Name Responsible Anesthesiologist Anesthesia Start Time Anesthesia Stop Time @TRANSCATHETER OCCLUSION/EMBOLIZATIO N FOR TUMOR DESTRUCTION (WRVU 20.12) Bill Orlando MD 07/24/22 0737 07/24/22 1154 Events Date Time Event Comment 07/24/2022 0737 0737 AN Verify 0737 Start 0737 An Start Data 0802 An Induction 0802 Quick Note Anesthesia mach ine checked within the last 24 hours. Leak test performed and passed immediatly prior to the case. Pt preoxygenated with 100% O2. Smooth IV induction. Eyes taped. Airway placed without incident. Atraumatic. Teeth as before. Airway secured with tape. Refer to the airway note for additional details. 0805 An Intubation 0836 Anesthesia Ready 0900 Procedure Start 1035 Procedure Stop Holding press ure for failed angio seal 1133 Extubation/LMA Out 1133 Quick Note Pt reversed at the time noted by reversal medication administration. TOF 4/4 without fade. Pt suctioned. Oral airway in place. Spontaneously ventilating. Tidal volume greater than 350mL. Rate regular. Eyes open to voice. Airway removed and pt placed on oxygen face mask 6lpm. Pt spontaneously ventilating after extubation. O2 saturation greater than 95%. To recovery area. Once in the recovery area monitors applied. Vital signs stable. Pt spontaneously ventilating. Report given to recovery nurse at handoff. 1136 an stop data 1154 Recovery or ICU Handoff 1154 Stop Meds Name Total Midazolam 2 mg fentaNYL 100 mcg Propofol 150 mg Rocuronium 80 mg PHENYLephrine 960 mcg ePHEDrine 25 mg Ondansetron 4 mg Dexamethasone 4 mg sodium chloride 0.9% 500 mL IV bolus 500 mL Heparin 5,000 Units Protamine 50 mg Sugammadex 400 mg lactated ringers infusion 1,200 mL * Agents Name O2 Air N2O Sevoflurane (et) * Blood No blood administrations on file. Lines, Drains, and Airways Type Details Placement Removal Drain/Device Site 12/12/17; 1805; Left ; upper; mid axillary; collapsible closed device; Dr. Gimenez; Drain number 1; 01/31/23 LDA not present on assessment; 01/31/23; 14212/12/17 1805 by Constanza Corona RN 01/31/23 142 by Susana Posadas RN Drain/Device Site 12/12/17; 1807; Left ; lower; mid axillary; collapsible closed device; 01/31/23 LDA not present on assessment; 01/31/23; 1425 12/12/17 1807 by Constanza Corona RN 01/31/23 1425 by Susana Posadas RN Drain/Device Site 12/12/17; 1807; Righ t; upper; mid axillary; collapsible closed device; 01/31/23 not present on admission; 01/31/23; 1423 12/12/17 1807 by Constanza Corona, JENNYFER 01/31/23 1423 by Susana Posadas RN Drain/Device Site 12/12/17; 1808; Righ t; lower; mid axillary; collapsible closed device; 01/31/23 LDA not present on assessment; 01/31/23; 1424 12/12/17 1808 by Constanza Corona, RN 01/31/23 1424 by Susana Posadas RN Incision 05/19/22; 0821; Righ t, anterior, distal, lower; arm; non-laparascopic puncture; LDA not present upon assessment; 01/31/23; 1425 05/19/22 0821 by Krishna Pittman RN 01/31/23 1425 by Susana Posadas, RN (RETIRED) Peripheral IV Line - Single Lumen 07/24/22; 0716; median cubital vein (antecubital fossa), right; 20 gauge; distraction, intradermal injection, tolerated well; no longer indicated; 07/25/22; 1556 07/24/22 0716 by Chuyita Denis RN 07/25/22 1556 by Enoch Lewis RN Urethral Catheter 07/24/22; 0800; Surg dany longer than 2 hours; Immobility without alternative; indwelling double lumen catheter; 100% silicone; 16; inserted at this facility; 1; 10; 10; other (see comments) (Intubated and sedated); drainage bag; urethral catheter removed, tubing intact, physician notified; 07/25/22; 1227 07/24/22 0800 by Joan Mason RN 07/25/22 1227 by Penny Gray ETT Mask Ventilation: Adjunct (2); ETT Type: Cuffed; ETT Size: 7 mm; Mac Blade: 3; Notes: Stylette, Asleep, Pre-O2; Attempts: 1; Laryngoscopy Grade: 1; ETT Placement Verified By: Auscultation, Capnometry, Visual; Secured at Teeth: 22 cm; Inserted by: Marquis; Removal Date: 07/24/22; Removal Time: 11307/24/22 0802 by Juan Cho CRNA 07/24/22 1133 by Juan Cho CRNA (RETIRED) Peripheral IV Line - Single Lumen 07/24/22; 0821; dorsal arch vein (top of hand), right; uxvr-hzf-vzfsil catheter system; Anatomical Landmarks; 18 gauge; weed; 07/25/22; 1444 07/24/22 0821 by Juan Cho CRNA 07/25/22 1444 by Sumi Vela RN Arterial Line 07/24/22; 0835; radi al artery, right; 20 gauge; Anatomical Landmarks, Ultrasound Guidance, Guidewire; Yes - US guidance used for evaluation of potential access sites, vessel patency and realtime visualization of needle entry with permanent recording.; continuous blood pressure monitoring, frequent blood gas measurement; weed; Sterile Prep, Sterile Gloves; 3; radial artery, right; no longer indicated, removed per policy; 07/25/22; 1140 07/24/22 0835 by Juan Cho CRNA 07/25/22 1140 by Enoch Lewis RN Incision 07/24/22; 0904; Righ t; groin; non-laparascopic puncture; Cerebral angiogram w/ MD Watts; 01/31/23; 1516 07/24/22 0904 by Joan Mason, RN 01/31/23 1516 by Susana Posadas RN documented in this encounter Social History Tobacco Use Types Packs/Day Years [...] on file documented as of this encounter OR Notes * Anesthesia Postprocedure Evaluation - Bill Orlando MD - 07/24/2022 12:31 PM EDT Department of Anesthesiology Post-procedure Note Patient: Wendy Sandoval Procedure Summary Date: 07/24/22 Room / Location: [facility] INTERVENTIONAL RADIOLOGY / [facility] Anesthesia Start: 736 Anesthesia Stop: 1154 Procedure: @TRANSCATHETER OCCLUSION/EMBOLIZATION FOR TUMOR DESTRUCTION (WRVU 20.12) Diagnosis: (AXEL pipeline) Surgeons: Joanna Watts MD Responsible Provider: Bill Orlando MD Anesthesia Type: general ASA Status: 3 All Anesthesia Providers: Anesthesiologist: Bill Orlando MD ROASTER SUPERVISOR: Juan Cho CRNA Vitals Value Taken Time BP Temp Pulse 70 07/24/22 1231 Resp 15 07/24/22 1231 SpO2 99 % 07/24/22 1231 Pain Level Vitals shown include unvalidated device data. Patient Location: ICU Level of Consciousness: Awake and Alert Pain Management: Satisfactory Analgesia PONV: None Cardiovascular Status: At Baseline and Hemodynamically Stable Respiratory Status: At Baseline, Supplemental O2 (NC or FM) and Stable Respiratory Status Postoperative Fluid Status: Intravascular EUvolemia Possible Anesthetic Complications: NONE apparent at time of evaluation Final Primary Anesthesia Type: General (The anesthetic type performed was the same as planned.) Comments: * Anesthesia Preprocedure Evaluation - Bill Orlando MD - 07/20/2022 11:56 AM EDT Pre-Anesthesia Evaluation for: Wendy Sandoval a 57 y.o. female. Procedure(s): @TRANSCATHETER OCCLUSION/EMBOLIZATION FOR TUMOR DESTRUCTION (WRVU 20.12) Patient Active Problem List Diagnosis Date Noted ??? 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 History of breast cancer 12/12/2017 ??? Seroma of breast 09/13/2017 ??? Bacterial conjunctivitis 09/07/2017 ??? Hypokalemia 07/20/2017 ??? Surgery follow-up 05/10/2017 ??? Abdominal wound dehiscence 05/10/2017 ??? S/P breast reconstruction, bilateral 04/27/2017 ??? Malignant neoplasm of upper-outer quadrant of left breast in female, estrogen receptor znhtaohe06/10/2018 ??? Hyperparathyroidism 11/02/2015 ??? Obstructive sleep apnea (adult) (pediatric) 11/12/2014 ??? OA (osteoarthritis) 11/12/2014 ??? Overweight(278.02) 11/12/2014 ??? Hypertension 03/15/2013 ??? Depression 03/15/2013 Past Medical History: Diagnosis Date ??? CKD (chronic kidney disease) stage 3, GFR 30-59 ml/min ??? Fibrocystic breast determined by biopsy ??? Hyperlipidemia ??? Hypertension ??? Impaired fasting glucose ??? Malignant neoplasm of upper-outer quadrant of left breast in female, estrogen receptor amsabufc21/10/2018 ??? Obstructive sleep apnea on CPAP ??? Proteinuria Past Surgical History: Procedure Laterality Date ??? BREAST BIOPSY Right 11/01 ??? SECTION x 2 ??? HAND SURGERY Right ??? IR ARTERIOGRAM CEREBRAL 05/19/2022 IR Arteriogram Cerebral 05/19/2022 Joanna Watts MD [facility] INTERVENTION[facility] RAD ??? IR DRAIN CHECK/CHANGE/REMOVE 11/20/2017 IR Drain Check/Change/Remove 11/20/2017 Marcos Dey MD [facility] INTERVENT[facility] RAD ??? IR MEDIPORT REMOVAL 01/25/2018 IR Mediport Removal 01/25/2018 Scooby Muñoz, MANAGER CLINICAL RESEARCH [facility] INTERVENTION[facility] RAD ??? PRG EMG, LARYNX N/A 11/02/2015 FACIAL NERVE MONITORING, SETUP LARYNGEAL performed by Valentina Lucas MD at [facility] MAIN OR ??? PRO BREAST RECONSTRUCTION IMMT/DLYD W/TISS MERCHANDISE PROCESSOR SBSQ EXPANSION Bilateral 04/26/2017 BREAST RECONSTRUCTION, IMMEDIATE OR DELAYED, W/ TISSUE MERCHANDISE PROCESSOR, INCLUDING SUBSEQUENT EXPANSION (WRVU 18.5) performed by Andre Gimenez MD at [facility] MAIN OR ??? PRO BREAST RECONSTRUCTION W FREE FLAP Bilateral 04/26/2017 @BREAST RECONSTRUCTION W/ FREE FLAP, SUSAN (WRVU 42.58) performed by Andre Gimenez MD at [facility] LLOYD ??? PRO BREAST RECONSTRUCTION W/LATSMS D/SI FLAP WO PRSTHC IMPL Bilateral 12/12/2017 @BREAST RECONSTRUCTION W/ LAT DORSI FLAP,W/O IMPLANT, SUSAN (WRVU 23.36) performed by Andre Gimenez MD at [facility] MAIN OR ? ? PRO DEBRIDEMENT SUBCUTANEOUS TISSUE 20 SQCM/< 06/22/2017 DEBRIDEMENT SKIN AND SUBCU, BREAST (WRVU 1.01) performed by Andre Gimenez MD at [facility] OR ??? PRO EXPLORE PARATHYROID GLANDS N/A 11/02/2015 PARATHYROIDECTOMY OR EXPLORATION OF PARATHYROID(S) performed by Valentina Lucas MD at [facility] OR ? ? PRO FULL THICK GRFT TRUNK <20 SQCM Bilateral 04/26/2017 FTSG, FREE, DIR CLOSE DONOR SITE, TRUNK, 20 SQ CM OR LESS (WRVU 9.15) performed by Andre Gimenez MD at [facility] OR ??? PRO INCISION OF LYMPH CHANNELS Left 10/18/2018 INCISION & DRAINAGE LYMPHOCELE (WRVU 6.81) performed by Andre Gimenez MD at [facility] OR ??? PRO IV INJ TO TEST BLOOD FLOW IN FLAP/GRAFT Left 10/18/2018 IV INJECTION, AGENT TO TEST VASC FLOW IN FLAP OR GRAFT, ENT (WRVU 1.95) performed by Andre Gimenez MD at [facility] OR ??? PRO MASTECTOMY, SIMPLE, COMPLETE Bilateral 04/26/2017 MASTECTOMY, SIMPLE, COMPLETE-SUSAN (WRVU 15.85) performed by Jolie Menendez MD at [facility] OR ??? PRO PARTIAL REMOVAL OF RIB Bilateral 04/26/2017 EXCISION OF RIB, PARTIAL (WRVU 7.26) performed by Andre Gimenez MD at [facility] OR ??? PRO REMOVE ARMPITS LYMPH NODES COMPLT Left 04/26/2017 LYMPHADENECTOMY, AXILLARY, COMPLETE (WRVU 13.87) performed by Jolie Menendez MD at [facility] OR ??? PRO REPLACE TISSUE MERCHANDISE PROCESSOR Bilateral 12/12/2017 TISSUE MERCHANDISE PROCESSOR REPLACEMENT, WITH PERMANENT PROSTHESIS, SUSAN (WRVU 8.01) performed by Andre Gimenez MD at [facility] OR ??? PRO REVISION RECONSTRUCTED BREAST Left 06/22/2017 REVISION OF RECONSTRUCTED BREAST (WRVU 10.41) performed by Andre Gimenez MD at [facility] MAIN OR ??? PRO REVISION RECONSTRUCTED BREAST Bilateral 12/12/2017 REVISION OFRECONSTRUCTED BREAST, SUSAN (WRVU 10.41) performed by Andre Gimenez MD at [facility] MAIN OR ??? PRO THYMECTOMY, TRANSCERVICAL N/A 11/02/2015 THYMECTOMY, TRANSCERVICAL APPROACH performed by Valentina Lucas MD at [facility] MAIN OR ??? SHOULDER SURGERY Left ??? UMBILICAL HERNIA REPAIR Social History Tobacco Use ??? Smoking status: Former Types: Cigarettes Quit date: 08/07/1991 Years since quittin.9 ??? Smokeless tobacco: Never Substance Use Topics ??? Alcohol use: Yes Comment: socially once a month Social History Substance and Sexual Activity Drug Use No Allergies Allergen Reactions ??? Penicillins Thrush ??? Zoloft [Sertraline] PSORIASIS FLARE Medications: MAR and/or home medications have been reviewed. Physical Exam: Preprocedure Vitals Current as of 07/20/22 1156 No BP, pulse, respiration, SpO2, or temperature recorded. Height: Weight: BMI: IBW: Airway Assessment: Mallampati: III TM distance: >3 FB Neck ROM: full Cardiovascular Assessment: system normal Pulmonary Assessment: pulmonary exam normal Dental Assessment: - normal exam Misc Assessment: Last Filed Perioperative Cognitive Screening None Anesthesia Plan: ASA 3 general, with a(n) intravenous induction Wendy Sandoval is a 57 y.o. female w/ AXEL aneurysm who presents for IR guided transcatheter embolization PMH: (See attached PCC note for more details). BMI 32, JACQUELYN, HTN, AXEL aneurysm, hx of breast CA (left side) Anesth Hx: tolerated GA previously, no issues (grd 1 view noted in 2016) Denies CP/SOB. No cardiac hx. Echo 2018: 1. Technically difficult study. 2. Mild concentric left ventricular hypertrophy is observed. There is normal global left ventricular systolic function. Ejection fraction is estimated to be 70%. There are no left ventricular segmental wall motion abnormalities. 3. The right ventricle is probably normal in size. Right ventricular global systolic function is probably normal. 4. The cardiac valves appear structurally and functionally normal. Labs: 06/27/22 05/19/22 1501 0645 WBC 9.1 -- HGB 13.0 -- HCT 39.4 -- PLATELET 343 337 07/20/22 06/27/22 05/19/22 1144 1501 0645 NA 140 130* -- K 4.8 4.2 -- CL 105 97* -- CO2 24 24 -- BUN 36* 34* -- CREATININE 1.70* 1.60* 1.65* 06/27/22 1501 AST 13 ALT 16 ALKPHOS 90 BILITOT 0.3 No results for input(s): PT, INR, PTT in the last 168 hours. No results found for: ABORH Pt is appropriately NPO Anesthetic Plan GA with ETT Standard ASA monitors, IV access Arterial line Region - Intracranial (vascular) Informed Consent: Anesthetic plan and risks discussed with patient. Use of blood products discussed with patient who consented to blood products. Plan discussed with ROASTER SUPERVISOR and attending. Anesthesia Screening Note: Date and Time of Entry: 07/20/2022 11:56 AM Entered By: Jasmin Aguilera MD Reason for Evaluation: Surgeon Request Other Reason: CKDIII, concern for GREGORY given contrast during Screening Visit Type: Interviewed in person Additional/Outside Records Requested? Did not request medical information from outside organization. Findings, Assessment and Plan: 57 y.o. female BMI 34 presenting for pre-anesthesia consultation prior to flow- diverting stent placement for treatment of AXEL aneurysm with Dr. Watts 07/24/22. Seen in [facility] given known CKD III (GFR 37) and significant contrast use in aneurysm embolization. ?? MEDICAL HISTORY: #HTN: diltiazem, losartan, spironolactone #JACQUELYN, not on CPAP #hyperparathyroidism #depression: fluoxetine #breast cancer s/p bilateral mastectomy and chemotherapy. exemestane #psoriasis: stelara #CKD III GFR 34 - 44, Cr between 1 - 2; followed by nephrology. Unclear origin, potentially relatedto HTN. Diagnostic cerebral angiography performed 05/16/22 without complication. ?? Instructed to start DAPT 21 days prior to surgery. ?? TTE 06/01/17 1. Technically difficult study. 2. Mild concentric left ventricular hypertrophy is observed. ??There is normal global left ventricular systolic function. ??Ejection fraction is estimated to be 70%. There are no left ventricular segmental wall motion abnormalities. 3. The right ventricle is probably normal in size. ??Right ventricular global systolic function is probably normal. 4. The cardiac valves appear structurally and functionally normal. 5. See remainder of report for additional findings. ?? Social History: Tobacco Use: Former, quit in 1991 Alcohol: Social, monthly use ?? SURGICAL HISTORY: BL mastectomy, previous orthopedic surgeries ANESTHETIC HISTORY: No issues with anesthesia. No history of challenging intubations per patient ?? Allergies reviewed No current facility-administered medications for this encounter. ??? clopidogreL (Plavix) 75 mg tablet ??? magnesium hydroxide (MAGNESIA ORAL) ??? MULTI-VITAMIN ORAL ??? Stelara 45 mg/0.5 mL subcutaneous injection ??? valACYclovir (Valtrex) 500 mg Tablet ??? calcium carbonate (CALCIUM 600 ORAL) ??? exemestane (Aromasin) 25 mg Tablet ??? rosuvastatin (Crestor) 10 mg Tablet ??? ibuprofen (ADVIL;MOTRIN) 200 mg Tablet ??? dilTIAZem (CARDIZEM CD) 240 mg Capsule, Sust. Release 24 hr ??? spironolactone (ALDACTONE) 25 mg Tablet ??? gabapentin (NEURONTIN) 300 mg Capsule ??? losartan (COZAAR) 100 mg Tablet ??? cholecalciferol, Vitamin D3, 125 mcg (5,000 unit) Tablet ??? acetaminophen (TYLENOL) 325 mg Tablet ??? ferrous gluconate 324 mg (37.5 mg iron) Tablet ??? fluoxetine (PROZAC) 40 mg capsule ?? Labs: Recent Labs 06/27/22 1501 05/19/22 0645 WBC 9.1 -- HGB 13.0 -- HCT 39.4 -- PLATELET 343 337 ?? Recent Labs 06/27/22 1501 05/19/22 0645 NA 130* -- K 4.2 -- CL 97* -- CO2 24 -- BUN 34* -- CREATININE 1.60* 1.65* ?? Recent Labs 06/27/22 1501 AST 13 ALT 16 ALKPHOS 90 BILITOT 0.3 ?? FUNCTIONAL EXERCISE TOLERANCE: Able to walk up 2 flights of stairs without stopping. Not functionally limited. Overall: Patient was seen and evaluated by PCC. She followed by nephrology. Her GFR has been consistently 35- 40 since 2019. Given her clinical picture, recommend renal protective strategies in the setting of contrast load include adequate IV fluid hydration with crystalloid prior to contrast use and during and after procedure, maintanance of adequate perfusion pressure/MAP throughout the abdiaziz- operative period and avoidance of nephrotoxic drugs. Nephrology in discussion with NSGY Recommendations made for day of procedure: If using contrast would plan hydartion both before and following procedure to minimize risk for contrast injury following either approach with NS: Outpatients -?? 3 mL/kg over one hour preprocedure and 1 to 1.5 mL/kg/hour during and for four to six hours postprocedure, with administration of at least 6 mL/kg postprocedure. Inpatients -??1 mL/kg/hour for 6 to 12 hours preprocedure, intraprocedure, and for 6 to 12 hours postprocedure. Additional procedural modifications include using the lowest concentration and volume of contrast feasible to safely perform the embolization. Patient was consulted for surgery. All questions where answered. Consent to be signed into the chart. Jasmin Aguilera MD 07/20/22 2:28 PM ?? documented in this encounter Miscellaneous Notes * Addendum Note - Juan Cho CRNA - 07/24/2022 1:06 PM EDT Addendum created 07/24/22 1196 by Juan Cho CRNA Intraprocedure Event edited, Intraprocedure Meds edited documented in this encounter Plan of Treatment Upcoming Encounters Date Type Department Care Team (Late st Contact Info) Description 01/22/2024 10:30 AM EST Appointment Mammography/[place] [address] Ladi Mendosa MD [facility] DR HEMATOLOGY/[place] [address] 01/30/2024 11:30 AM EST Office Visit Dermatology at [facility] [address] [place] [address] Nilda Luis MD [facility] DR LIDIA [place] [address] 02/15/2024 9:30 AM EST [place] [id number] [place] [address] documented as of this encounter Visit Diagnoses Not on filedocumented in this encounter Administered Medications Inactive Administered Medications - up to 3 most recent administrations Medication Order MAR Action Action Date Dose Rate Site dexAMETHasone (Decadron) injection Intravenous, PRN, Starting on Sun07/24/22 at 0802, Until Sun07/24/22 at 1154, Anesthesia Intra-op, Routine Given 07/24/2022 8:02 AM EDT 4 mg ePHEDrine sulfate (5 mg/mL) multi-dose injection Intravenous, PRN, Starting on Sun07/24/22 at 0827, Until Sun07/24/22 at 1154, Anesthesia Intra-op, Routine Given 07/24/2022 8:44 AM EDT 5 mg Given 07/24/2022 8:27 AM EDT 10 mg Given 07/24/2022 8:17 AM EDT 10 mg fentaNYL (pf) (50 mcg/mL) multi-dose injection Intravenous, PRN, Starting on Sun07/24/22 at 0802, Until Sun07/24/22 at 1154, Anesthesia Intra-op, Routine Given 07/24/2022 10:35 AM EDT 50 mcg Given 07/24/2022 8:02 AM EDT 50 mcg heparin (porcine) (1,000 units/mL) injection Intravenous, PRN, Starting on Sun07/24/22 at 0936, Until Sun07/24/22 at 1154, Anesthesia Intra-op, Routine Given 07/24/2022 9:36 AM EDT 5,000 Uni ts lactated ringers infusion 1,000 mL, at 100 mL/hr, Intravenous, CONTINUOUS, Starting on Sun07/24/22 at 0700, Until Sun07/24/22 at 1157, Day of Surgery (Day of Procedure) New Bag 07/24/2022 10:26 AM EDT New Bag 07/24/2022 7:37 AM EDT New Bag 07/24/2022 7:17 AM EDT 1,000 mLs 100 mL/hr midazolam (pf) (Versed) (1 mg/mL) multi-dose injection Intravenous, PRN, Starting on Sun07/24/22 at 0738, Until Sun07/24/22 at 1154, Anesthesia Intra-op, Routine Given 07/24/2022 7:38 AM EDT 2 mg ondansetron (pf) (Zofran) (2 mg/mL) injection Intravenous, PRN, Starting on Sun07/24/22 at 1035, Until Sun07/24/22 at 1154, Anesthesia Intra-op, Routine Given 07/24/2022 10:35 AM EDT 4 mg PHENYLephrine in NS (PF) (LENA-SYNEPHRINE) 0.8 mg/10 mL (80 mcg/mL) multi-dose injection Syringe Intravenous, PRN, Starting on Sun07/24/22 at 0817, Until Sun07/24/22 at 1154, Anesthesia Intra-op, Routine Given 07/24/2022 10:26 AM EDT 160 mcg Given 07/24/2022 9:46 AM EDT 160 mcg Given 07/24/2022 9:03 AM EDT 160 mcg propofoL (Diprivan) 10 mg/mL bolus injection (Anesthesia) Intravenous, PRN, Starting on Sun07/24/22 at 0802, Until Sun07/24/22 at 1154, Anesthesia Intra-op Given 07/24/2022 8:02 AM EDT 150 mg protamine (10 mg/mL) injection Intravenous, PRN, Starting on Sun07/24/22 at 1043, Until Sun07/24/22 at 1154, Anesthesia Intra-op, Routine Given 07/24/2022 10:43 AM EDT 50 mg rocuronium (Zemuron) (10 mg/mL) multi-dose injection Intravenous, PRN, Starting on Sun07/24/22 at 0802, Until Sun07/24/22 at 1154, Anesthesia Intra-op, Routine Given 07/24/2022 9:03 AM EDT 30 mg Given 07/24/2022 8:02 AM EDT 50 mg sodium chloride 0.9% 500 mL IV bolus Intravenous, ONCE, 1 dose, On Sun07/24/22 at 0700, Please administer prior to Angio case on 07/24/22 New Bag 07/24/2022 7:32 AM EDT 500 mLs sugammadex (Bridion) 100 mg/mL injection Intravenous, PRN, Starting on Sun07/24/22 at 1125, Until Sun07/24/22 at 1154, Anesthesia Intra-op, Routine Given 07/24/2022 11:25 AM EDT 400 mg documented in this encounter Care Teams Travertine Installer Relationship Specialty Start Date End Date Trinh Coates MD [address] [place] [address] PCP - General 01/11/10 documented as of this encounter
--- OUTSIDE RECORDS SUMMARY | 2023-09-07 11:25 | XMS_ITS | Encounter Summary ---
Author Organization [facility] [place] [address] Care Team Providers Care Button Maker Name Role Phone Trinh Coates MD Primary Care Provider [phone] Reason for Referral * Diagnostic Test (Routine) - Closed Specialty Diagnoses / Procedures Referred By Diamante marin Referred To Contact Radiology Diagnoses Right internal carotid artery aneurysm Procedures IR Embolization [place]erebral [place] [address] [place] [address] Referral ID Status Reason Start Date Expiration Date V isits Requested Visits Authorized [id number] Closed Specialty Service Requested 05/19/2022 11/19/2023 1 1 Reason for Visit * Auth/Cert (Routine) Specialty Diagnoses / Procedures Referred By Diamante marin Referred To Contact Diagnoses Cerebral aneurysm, nonruptured AXEL pipeline Procedures PRO PERM OCCLUSION/EMBOLIZATION, PERCUT, INSURANCE LEGAL ASSISTANT @TRANSCATHETER OCCLUSION/EMBOLIZATION FOR TUMOR DESTRUCTION (WRVU 20.12) [place] [address] [facility] Referral ID Status Reason Start Date Expiration Date Visits Re quested Visits Authorized [id number] 1 1 Encounter Details Date Type Department Care Team (Latest Contact Info) Description 07/24/2022 7:30 AM EDT - 07/24/2022 11:59 PM EDT Hospital [place] [address] [place] [address] Right internal carotid artery aneurysm Discharge Disposition: Home Social History Tobacco [...] on file documented as of this encounter Discharge Instructions * Discharge Instructions* Joan Maosn RN - 07/24/2022 8:20 AM EDT [facility] Interventional Radiology Post Angiography Instructions Procedure: Cerebral angiogram Puncture Site: Right groin Date: 07/24/22 Physician: MD Watts 1. At home we advise you to [...] or hoildays, call and ask for the cco & president internal controls specialist 10. If you are a diabetic and take Metformin or Janumet, Do not take it for 2 days after the procedure. XX You have received medication during your procedure [...] please contact your M. D. Revised 12/05/18 documented in this encounter Medications at Time [...] mouth daily. 90 tablet 3 07/26/2022 01/31/2023 aspirin 81 mg chewable tablet Take 81 mg by mouth daily. 4 tablets per day until surgery 07/24/22 07/25/2022 clopidogreL (Plavix) 75 mg tablet Take 1 tablet by mouth daily. Start 06/26/22, prior to aneurysm procedure. 90 tablet 3 05/26/2022 07/25/2022 MULTI-VITAMIN ORAL Take 1 tablet by mouth [...] mouth daily. 30 tablet 11 10/13/2021 01/08/2023 ibuprofen (ADVIL;MOTRIN) 200 mg Tablet Take 200 mg by mouth every 6 hours as needed for Pain. 07/25/2022 gabapentin (NEURONTIN) 300 mg CapsuleIndications:Elaine rojas neoplasm of upper-outer quadrant of left breast in female, estrogen receptor positive,Neuropathy due to chemotherapeutic drug Take 1 capsule by mouth 3 times daily. 90 capsule 3 05/29/2018 07/25/2022 acetaminophen (TYLENOL) 325 mg Tablet Take 2 tablets by mouth every 4 hours as needed for Pain. 11/03/2015 07/25/2022 documented as of this encounter Progress Notes * Joanna Watts MD - 07/24/2022 12:24 PM EDT CTH negative. updated by phone. 07/24/2022 12:24 PM Joanna Watts MD Open cerebrovascular and endovascular neurosurgery attending * Joan Mason RN - 07/24/2022 8:17 AM EDT ANGIO NURSING DATABASE Name: Wendy Sandoval Date of : 1965 AGE: 57 y.o. [address]: [address] [place] [phone] (home) [phone] (work) Mobile: Telephone Information: Referring Provider: Joanna Watts REASON FOR VISIT: Order Questions Answers Where will study be performed? [facility] Radiology [120] Does this patient have any known bleeding risk factors or conditions that places them at higher risk for a procedural hemorrhage? None Reason for exam and clinical history: AXEL zacarias Is the patient on anticoagulant / antiplatelet therapy ? Aspirin,Clopidogrel No data recorded Allergies Allergen Reactions Penicillins Thrush PAT Penicillin Allergy Risk Assessment 07/20/2022: Moderate Risk Reaction. Patient referred to allergy clinic for pre-op testing. Zoloft [Sertraline] PSORIASIS FLARE Pertinent PMH: Patient Active Problem List Diagnosis [...] mg, nitroglycerin 200 mcg, IV. 07/24/22 Cerebral angiogram ANES Arterial Puncture Post Procedure Site: Right groin Closure device used: Manual hold Time sheath removed: 1033 Time of hemostasis: 1125 Hematoma present?: No Anticipated up time: 1525 Laboratory Results: Lab Results Component Value Date INR 1.1 11/30/2017 Lab Results Component Value Date CREATININE 1.70 (H) 07/20/2022 Lab Results Component Value Date K 4.8 07/20/2022 Lab Results Component Value Date PLATELET 343 2022 documented in this encounter Miscellaneous Notes * Brief Op Note - Joanna Watts MD - 07/24/2022 10:41 AM EDT INTERVENTIONAL RADIOLOGY BRIEF PROCEDURE NOTE Patient Name: Wendy Sandoval : 1965 Case Date: 07/24/2022 Operators: Attending: All Staff: Staff Role No Staff Documented Post-operative diagnosis/Indication: Right internal carotid artery aneurysm Name of Procedure Performed: Flow diverting stent placement for AXEL aneurysm Description of the procedure: R FUDGER 6Fr access. Attempted 6Fr angioseal closure with incomplete hemostasis, manual pressure held. Findings of the procedure: Uncomplicated placement of AXEL flow diverting stent. EBL: <10 mL Specimens: None Complications: No immediate Plan/Disposition: Transfer to [facility]. MAP 70-90 overnight. Asa, plavix home doses tomorrow morning (last taken this AM). FULL PROCEDURE NOTE TO FOLLOW IN IMAGE REPORT documented in this encounter Plan of Treatment Upcoming Encounters Date Type Department Care Team (Late st Contact Info) Description 01/22/2024 10:30 AM EST Appointment Mammography/[place] [address] Ladi Mendosa MD [facility] [place] [address] 01/30/2024 11:30 AM EST Office Visit Dermatology at [facility] [address] [place] [address] Nilda Luis MD [facility] [address] [address] 02/15/2024 9:30 AM [place] [address] [place] [address] documented as of this encounter Procedures Procedure Name Priority Date/Time Associated Diagnosis Comments IR EMBOLIZATION CEREBRAL Routine 07/24/2022 11:37 AM EDT Right internal carotid artery aneurysm documented in this encounter Results * IR Embolization Cerebral [...] who have questions please contact the health menagerie caretaker that requested your imaging first. ? Electronically signed by: Joanna Watts MD, [facility] ([phone]), at 07/24/2022 1:42 PM Narrative 07/24/2022 1:42 [...] Bentson Guidewire. 3. ??0.035 flexible Glidewire with Terumo torque device. 4. ??6-Cuban, 90-cm NeuronMax 5. ??5-Cuban Envoy guide catheter. 6. ??5-Cuban, 125-cm Mann II angiographic catheter. 7. ??5-Cuban NARESH catheter. 8. ??5-Cuban 0.055 ??x 125 cm Mary Distal Access Catheter 9. ??Phenom 27 microcatheter. 10. ??0.014 Synchro 2 hydrophilic guidewire. 11. ??Pipeline Shield 5.0 x 25mm 12. ??6-Cuban Angio-Seal Device ?? PROCEDURE COMMENTS: After explaining [...] exchanged for an introducer followed by a 6-Cuban ??90 cm vascular sheath utilizing a Bentson wire. The sheath was then double flushed and hooked to heparinized saline via pressure bag. Subsequently a Mann 2 angiographic catheter was initially used to attempt selection of the right common carotid artery which was unsuccessful. This was switched out for a 5-Cuban ??VERT catheter which was used to selectively catheterize the right common carotid artery. The sheath was advanced up to the level of the first carotid loop, and the angiographic catheter and Glidewire were removed. A 5 Cuban Mary was introduced into the sheath and snaked up to the level of the petrous right internal carotid artery. A Glidewire was introduced into the 5 Cuban Reanna up to the level of the [...] and microwire were withdrawn from the 5 Cuban Reanna. The access sheath was withdrawn to the level of the distal common carotid artery, leaving the [address] to maintain access across [...] in the usual sterile fashion. ??A 6 Cuban Angio-Seal closure device was subsequently prepared and [...] Bentson Guidewire. 3. 0.035 flexible Glidewire with Terumo torque device. 4. 6-Cuban, 90-cm NeuronMax 5. 5-Cuban Envoy guide catheter. 6. 5-Cuban, 125-cm Mann II angiographic catheter. 7. 5-Cuban NARESH catheter. 8. 5-Cuban 0.055 x 125 cm Mary Distal Access Catheter 9. Phenom 27 microcatheter. 10. 0.014 Synchro 2 hydrophilic guidewire. 11. Pipeline Shield 5.0 x 25mm 12. 6-Cuban Angio-Seal Device PROCEDURE COMMENTS: After explaining the [...] angiography table. [facility] Both groins were prepped and [...] exchanged for an introducer followed by a 6-Cuban 90 cm vascularsheath utilizing a Bentson wire. The sheath was then double flushed and hookedto heparinized saline via pressure bag. Subsequently a Mann 2angiographic catheter was initially used to attempt selection of the right commoncarotid artery which was unsuccessful. This was switched out for a 5-FrenchVERT catheter which was used to selectively catheterize the right commoncarotid artery. The sheath was advanced up to the level of the first carotid loop,and the angiographic catheter and Glidewire were removed. A 5 Cuban Sofiawas introduced into the sheath and snaked [...] microcatheter and microwire were withdrawnfrom the 5 Cuban Reanna. The access sheath was withdrawn to the level of thedistal common carotid artery, leaving the [address] to maintainaccess across the [...] draped in the usual sterile fashion. A6 Cuban Angio-Seal closure device was subsequently prepared and [...] patients who have questions please contactthe health menagerie caretaker that requested your imaging first. Electronically signed by: Joanna Watts MD, [facility]([phone]), at 07/24/2022 1:42 PM Joanna Watts MD IM IR ORDERABLES documented in this encounter Visit Diagnoses Diagnosis Right internal carotid artery aneurysm Cerebral aneurysm, nonruptured documented in this encounter Administered Medications Inactive Administered Medications - up to 3 most recent administrations Medication Order MAR Action Action Date Dose Rate Site iodixanoL (Visipaque) (320 mg/mL) injection solution 150 mL 150 mL, Intravenous, ONCE PRN, 1 dose, Starting on Sun07/24/22 at 1049, Until 07/24/22 at 1050, Per Protocol, Routine Given 07/24/2022 10:50 AM EDT 60 mLs documented in this encounter Care Teams Button Maker Relationship Specialty Start Date End Date Trinh Coates MD [facility] [address] [place] [address] PCP - General 01/11/10 documented as of this encounter
--- OUTSIDE RECORDS SUMMARY | 2023-09-07 11:25 | XMS_ITS | Encounter Summary ---
[place] [address] Care Team Providers Care Barrel Charrer Name Role Phone Trinh Coates MD Primary Care Provider [phone] Reason for Referral * Consultation (Routine) - Canceled Specialty Diagnoses / Procedures Referred By Diamante marin Referred To Contact Orthopaedics Diagnoses Acute meniscal injury of knee, left, initial encounter Rupture of anterior cruciate ligament of left knee, initial encounter ACUTE meniscal injury of knee, left Rupture of anterior cruciate ligament of left knee Samm Nazario MD [address] [place] [address] [facility] [address] [place] [phone] Referral ID Status Reason Start Date Expiration Date Visits Requested Visits Authorized [id number] Canceled Consult, Test & Treat PCP Updated and/or Approved 01/06/2022 01/06/2023 6 6 Encounter Details Date Type Department Care Team (Latest Contact Info) Description 01/06/2022 Transcribe Orders eDH Incoming Referrals [phone] Samm Nazario MD [address] [place] [address] Acute meniscal injury of knee, left, initial encounter; Rupture of anterior cruciate ligament of left knee, initial encounter Social History Tobacco Use Types Packs/Day [...] 01/22/2024 10:30 AM EST Appointment Mammography[place] [address] Ladi Mendosa MD [facility] HEMATOLOGY/[place] [address] 01/30/2024 11:30 AM EST Office Visit Dermatology at [address] [place] [phone] Nilda Luis MD [facility] DR [address] [place] [address] 02/15/2024 9:30 AM EST [place] [phone] [place] [address] Scheduled Referrals Name Type Priority Associated Diagnoses Order Schedule Referral to Orthopaedics Outpatient Referral Routine Acute meniscal injury of knee, left, initial encounter Rupture of anterior cruciate ligament of left knee, initial encounter Ordered: 01/06/2022 documented as of this encounter Visit Diagnoses Diagnosis Acute meniscal injury of knee, left, initial encounter Rupture of anterior cruciate ligament of left knee, initial encounter documented in this encounter Care Teams Barrel Charrer Relationship Specialty Start Date End Date Trinh Coates MD [address] [place] [address] PCP - General 01/11/10 documented as of this encounter
--- OUTSIDE RECORDS SUMMARY | 2023-09-07 11:25 | XMS_ITS | Encounter Summary ---
Author Organization [facility] Address [facility] [place] [address] Care Team Providers Care Evaluation Advisor Name Role Phone Trinh Coates MD Primary Care Provider [phone] Encounter Details Date Type Department Care Team (Latest Contact Info) Description 04/28/2022 3:00 PM EST TH Visit (TeleHealth) Nephrology [place] [address] Zackery Dawson MD [facility] [place] [address] Stage 3 chronic kidney disease, unspecified whether stage 3a or 3b CKD; Hypertension, unspecified type Social History Tobacco Use Types Packs/Day Years [...] as of this encounter Progress Notes * Zackery Dawson MD - 04/28/2022 3:00 PM EST PATIENT: Wendy Sandoval : 1965 Interval history: Patient had screening for brain aneurysms as a family member recently , and was found to have aneurysmal disease. She is going in for further studies to determine if intervention is necessary. Otherwise denies changes in her health. She is tolerating her medications without issue. Assessment/Plan: Creatinine elevation CKD stage III A3 CR??1.7->??eGFR??34ml/min??.?Creatinine fluctuate between around 1 and??2??mg/dL and what appears to be hemodynamic pattern. Patient does have bilateral cysts (and new brain aneurysm detected via screening) plus I have.?Sub-gram proteinuria with albuminuria??318 mcg/mg creatinine/0.4 g per spot UPC.?Improved compared to prior spot checks in 2015. Serologic work-up was negative. ??Patient reports proteinuria has been present since episode of eclampsia during . Plan:?? Continue to focus on hydration. ??Patient is on losartan, diltiazem and Spironolactone,??all noted to have anti-proteinuric properties.? 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 ??Potassium managed without supplementation. Patient is on spironolactone, and blood pressure and hypokalemia appears to be relatively well managed at this point in time.?Would continue??to monitor potassium and magnesium at least quarterly.? Continue spironolactone, diltiazem and losartan Renal Clinic Follow-Up Plan: 6 months Past Medical History: Diagnosis Date ??? Fibrocystic breast determined by biopsy ??? Hyperlipidemia ??? Hypertension ??? Impaired fasting glucose ??? Malignant neoplasm of upper-outer quadrant of left breast in female, estrogen receptor positive03/31/2017 ??? Obstructive sleep apnea on CPAP ??? Proteinuria Past Surgical History: Procedure Laterality Date ??? BREAST BIOPSY Right 11/01 ??? SECTION x 2 ??? HAND SURGERY Right ??? IR DRAIN CHECK/CHANGE/REMOVE 11/20/2017 IR Drain Check/Change/Remove 11/20/2017 Marcos Dey MD [facility] INTERVENTIONL RAD ??? IR MEDIPORT REMOVAL 01/25/2018 IR Mediport Removal 01/25/2018 Scooby Muñoz APRN [facility] INTERVENTIONL RAD ??? PRG EMG, LARYNX N/A 11/02/2015 FACIAL NERVE MONITORING, SETUP LARYNGEAL performed by Valentina Lucas MD at [facility] OR ??? PRO BREAST RECONSTRUCTION IMMT/DLYD W/TISS CLIENT SUPPORT ASSOCIATE SBSQ EXPANSION Bilateral 04/26/2017 BREAST RECONSTRUCTION, IMMEDIATE OR DELAYED, W/ TISSUE CLIENT SUPPORT ASSOCIATE, INCLUDING SUBSEQUENT EXPANSION (WRVU 18.5) performed by Andre Gimenez MD at [facility] OR ??? PRO BREAST RECONSTRUCTION W FREE FLAP Bilateral 04/26/2017 @BREAST RECONSTRUCTION W/ FREE FLAP, SUSAN (WRVU 42.58) [facility] ??? PRO BREAST RECONSTRUCTION W/LATSMS D/SI FLAP WO PRSTHC IMPL Bilateral 12/12/2017 @BREAST RECONSTRUCTION W/ LAT DORSI FLAP,W/O IMPLANT, SUSAN (WRVU 23.36) performed by Andre Gimenez MD at [facility] OR ? ? PRO DEBRIDEMENT SUBCUTANEOUS TISSUE 20 SQCM/< 06/22/2017 DEBRIDEMENT SKIN AND SUBCU, BREAST (WRVU 1.01) performed by Andre Gimenez MD at [facility] MAIN OR ??? PRO EXPLORE PARATHYROID GLANDS N/A 11/02/2015 PARATHYROIDECTOMY OR EXPLORATION OF PARATHYROID(S) performed by Valentina Lucas MD at [facility] OR ? ? PRO FULL THICK GRFT TRUNK <20 SQCM Bilateral 04/26/2017 FTSG, FREE, DIR CLOSE DONOR SITE, TRUNK, 20 SQ CM OR LESS (WRVU 9.15) performed by Andre Gimenez MD at [facility] OR ??? PRO INCISION OF LYMPH CHANNELS Left 10/18/2018 INCISION & DRAINAGE LYMPHOCELE (WRVU 6.81) performed by Andre Gimenez MD at [facility] OR ??? PRO IV INJ TO TEST BLOOD FLOW IN FLAP/GRAFT Left 10/18/2018 IV INJECTION, AGENT TO TEST VASC FLOW IN FLAP OR GRAFT, ENT (WRVU 1.95) performed by Andre Gimenez MD at [facility] OR ??? PRO MASTECTOMY, SIMPLE, COMPLETE Bilateral 04/26/2017 MASTECTOMY, SIMPLE, COMPLETE-SUSAN (WRVU 15.85) performed by Jolie Menendez MD at [facility] OR ??? PRO PARTIAL REMOVAL OF RIB Bilateral 04/26/2017 EXCISION OF RIB, PARTIAL (WRVU 7.26) performed by Andre Gimenez MD at [facility] MAIN OR ??? PRO REMOVE ARMPITS LYMPH NODES COMPLT Left 04/26/2017 LYMPHADENECTOMY, AXILLARY, COMPLETE (WRVU 13.87) performed by Jolie Menendez MD at [facility] OR ??? PRO REPLACE TISSUE CLIENT SUPPORT ASSOCIATE Bilateral 12/12/2017 TISSUE CLIENT SUPPORT ASSOCIATE REPLACEMENT, WITH PERMANENT PROSTHESIS, SUSAN (WRVU 8.01) performed by Andre Gimenez MD at [facility] MAIN OR ??? PRO REVISION RECONSTRUCTED BREAST Left 06/22/2017 REVISION OF RECONSTRUCTED BREAST (WRVU 10.41) performed by Andre Gimenez MD at [facility] OR ??? PRO REVISION RECONSTRUCTED BREAST Bilateral 12/12/2017 REVISION OFRECONSTRUCTED BREAST, SUSAN (WRVU 10.41) performed by Andre Gimenez MD at [facility] OR ??? PRO THYMECTOMY, TRANSCERVICAL N/A 11/02/2015 THYMECTOMY, TRANSCERVICAL APPROACH performed by Valentina Lucas MD at [facility] OR ??? SHOULDER SURGERY Left ??? UMBILICAL HERNIA REPAIR Family History Problem Relation Age of Onset ??? Breast Cancer Maternal Cousin 45 Dx'd with Stg IV BR CA, in remission (age 48 in 2018); per pt report, genetic test inconclusive ??? Breast Cancer Mother 70 ??? Breast Cancer Maternal Aunt 39 contralateral breast cancer at 50; per pt report, negative genetic testing ??? Prostate Cancer Father 60 ??? Colorectal Cancer Maternal Grandfather 79 ??? Colorectal Cancer Maternal Uncle 68 ??? Stomach Cancer Maternal Cousin 51 ??? Breast Cancer Other 60 ??? Colorectal Cancer Other 64 ??? Ovarian Cancer Other 57 ??? Stomach Cancer Maternal Cousin 57 Social History Social History Narrative Not on file Outpatient medications: Current Outpatient Medications on File Prior to Visit Medication Sig Dispense Refill ??? valACYclovir (Valtrex) 500 mg Tablet TAKE 1 TABLET BY MOUTH TWICE DAILY FOR 3 DAYS ??? calcium carbonate (CALCIUM 600 ORAL) Take 600 mg by mouth every other day. ??? exemestane (Aromasin) 25 mg Tablet Take 1 tablet by mouth daily. 30 tablet 11 ??? ustekinumab (Stelara) 45 mg/0.5 mL subcutaneous injection MAINTENANCE: INJECT 1 SYRINGE SUBCUTANEOUSLY EVERY 12 WEEKS. REFRIGERATE. DO NOT FREEZE 0.5 mL 3 ??? rosuvastatin (Crestor) 10 mg Tablet TAKE 1 TABLET BY MOUTH DAILY AT BEDTIME ??? ibuprofen (ADVIL;MOTRIN) 200 mg Tablet Take 200 mg by mouth every 6 hours as needed for Pain. ??? dilTIAZem (CARDIZEM CD) 240 mg Capsule, Sust. Release 24 hr Take 240 mg by mouth daily. ??? spironolactone (ALDACTONE) 25 mg Tablet Take 1 tablet by mouth daily. 90 tablet 3 ??? gabapentin (NEURONTIN) 300 mg Capsule Take 1 capsule by mouth 3 times daily. (Patient taking differently: Take 300 mg by mouth 3 times daily. One in am, two at night) 90 capsule 3 ??? losartan (COZAAR) 100 mg Tablet take 1 tablet by mouth once daily 0 ??? cholecalciferol, Vitamin D3, 125 mcg (5,000 unit) Tablet Take by mouth daily. ??? acetaminophen (TYLENOL) 325 mg Tablet Take 2 tablets by mouth every 4 hours as needed for Pain. ??? ferrous gluconate 324 mg (37.5 mg iron) Tablet Take 324 mg by mouth daily. ??? fluoxetine (PROZAC) 40 mg capsule Take 40 mg by mouth daily. No current facility-administered medications on file prior to visit. MEDICATIONS: Allergies Allergen Reactions ??? Penicillins Thrush ??? Zoloft [Sertraline] PSORIASIS FLARE ROS: Constitutional - No fevers, chills, weight [...] Heart Rate Blood Pressure Respiratory Rate SpO2 Time attestation: 25 minutes spent on encounter greater than 50% direct on awake counselor with patient Zackery Dawson MD, MPH Section of Nephrology #[id number] documented in this encounter Plan of Treatment Upcoming Encounters Date Type Department Care Team (Late st Contact Info) Description 01/22/2024 10:30 AM EST Appointment Mammography/[place] [phone] Ladi Mendosa MD [facility] HEMATOLOGY/[place] [address] 01/30/2024 11:30 AM EST Office Visit Dermatology at [place] [address] [place] [phone] Nilda Luis MD [facility] [address] [address] 02/15/2024 9:30 AM EST App[place]ment [place] [address] [place] [address] documented as of this encounter Visit Diagnoses Diagnosis Stage 3 chronic kidney disease, unspecified whether stage 3a or 3b CKD Hypertension, unspecified type documented in this encounter Care Teams Evaluation Advisor Relationship Specialty Start Date End Date Trinh Coates MD [address] [place] [address] PCP - General 01/11/10 documented as of this encounter
--- OUTSIDE RECORDS SUMMARY | 2023-09-07 11:25 | XMS_ITS | Encounter Summary ---
Author Organization [facility] [place] [address] Care Team Providers Care Expense Clerk Name Role Phone Trinh Coates MD Primary Care Provider [phone] Reason for Referral * Diagnostic Test (Routine) - Closed Specialty Diagnoses / Procedures Referred By Contac t Referred To Contact Radiology Diagnoses Right internal carotid artery aneurysm Procedures IR Arteriogram Cerebral IR Arteriogram [place]ere[place] [address] [place] [address] Referral ID Status Reason Start Date Expiration Date V isits Requested Visits Authorized [id number] Closed Specialty Service Requested 04/07/2022 10/06/2023 1 1 Reason for Visit * Diagnostic Test (Routine) - Closed Specialty Diagnoses / Procedures Referred By Contac t Referred To Contact Radiology Diagnoses Right internal carotid artery aneurysm Procedures IR Arteriogram Cerebral IR Arteriogram Cere[place] [address] [place] [address] Referral ID Status Reason Start Date Expiration Date V isits Requested Visits Authorized [id number] Closed Specialty Service Requested 04/07/2022 10/06/2023 1 1 Encounter Details Date Type Department Care Team (Latest Contact Info) Description 05/19/2022 6:33 AM EDT - 05/19/2022 11:59 PM EDT Hospital [place] [address] Araceli Levi APRN [facility] [address] Right internal carotid artery aneurysm Discharge Disposition: [...] Sign Reading Time Taken Comments Blood Pressure 132/84 05/19/2022 11:24 AM EDT reassessed on arm, backto baseline. Dr. Watts at bedside aware. Pulse 66 05/19/2022 9:03 AM EDT Temperature 35.8 ??C (96.5 ??F) 05/19/2022 9 :13 AM EDT Respiratory Rate 16 05/19/2022 11:2 4 AM EDT Oxygen Saturation 96% 05/19/2022 11: 24 AM EDT Inhaled Oxygen Concentration - - Weight - - Height - - Body Mass Index - - documented in this encounter Discharge Instructions * Discharge Instructions* Krishna Pittman RN - 05/19/2022 8:39 AM EDT Radial Artery Instructions Procedure: Cerebral Arteriogram Puncture Site: right wrist (radial artery) Date: May 19, 2022 1. At home we advise you to rest quietly in bed or on the couch until the next morning. You may getup and walk around but keep your activity to a minimum. DO NOT USE WRIST OF AFFECTED SIDE TO PUSH YOURSELF UP IN BED OR CHAIR TO SHIFT POSITION FOR 12 HOURS POST PROCEDURE. 2. Resume your previous diet. Drink 6-8 ounces of fluid per hour for the next 8 hours. Avoid alcoholic or caffeinated beverages for 24 hours. If you are a diabetic and take Metformin or Janumet or the combination med's that include Metformin, DO NOT take for 2 days after the procedure. 3. Avoid strenuous activity for the next 48 hours, particularly in the next 24 hours. Do not lift anything for the next 48 hours or engage in any sports activity for 48 hours. You may engage in sexual activity after 48 hours. Problems to watch for: 1. If you develop bleeding at the puncture site, put direct pressure on the site for 15 minutes andcall your doctor. Call for help. If the bleeding persists, reapply firm pressure, call 911 for an ambulance and go to your local Emergency Department. 2. If you notice a sudden change in the feeling (numbness, tingling and/or pain) of your hand on the side of the puncture call your doctor. 3. You may develop a bruise and swelling at the catheter insertion site. If you develop a bulge, you may have bleeding inside. Contact your doctor or the Radiology/Vascular Department here. Report signs of infection (redness, swelling, discharge, soreness, or fever) to your doctor. 4. Leave the bandage on for 24-48 hours. A little spot of blood at the catheter insertion site is normal. A small lump or bruise under the skin is normal. They generally disappear in 3-4 days. You may shower the following day after the procedure. You should NOT swim or tub bathe for 48 hours. 5. Expect some mild tenderness over the catheter insertion area. You will notice this after the local anesthetic wears off. This should improve during the 24-48 hours after the procedure. Take tylenol if needed. Contact your doctor is the discomfort worsens. 6. Watch for signs for infection at the catheter site for the first few days at home. Signs include: Redness, swelling with increased soreness, yellow, green or brown fowl smelling drainage. If you think you may have these symptoms, take your temperature, then call your doctor. 7. You have received medication during your procedure to help lessen anxiety and keep you comfortable and which affects judgement and reaction time. We recommend that you do not drive, operate equipment, sign any important documents, or smoke unattended for 24 hours following your procedure. Because of the sedation please be careful on stairs, as you may be unsteady on your feet. You may return to work with the above restrictions on . The limb where the catheter was inserted should look and feel normal in color, sensation, and temperature. If your arm/hand becomes cool, pale, blue or changing color with numbess and tingling, CALL YOUR DOCTOR. If you have any questions or concerns, please call Interventional Radiology Department at until 6pm. After 6pm, or on weekends or hoildays, kee and ask for the NeurologyRadiology resident jd edwards consultant. OR Peripheral IV site -- slight redness, or tenderness [...] q 6 hrs daily as needed 11/15/2015 calcium carbonate (CALCIUM 600 ORAL) Take 600 [...] aneurysm procedure. 90 tablet 3 05/26/2022 07/25/2022 Stelara 45 mg/0.5 mL subcutaneous injectionIndications:Ps oriasis MAINTENANCE: INJECT 1 SYRINGE SUBCUTANEOUSLY EVERY 12 WEEKS. REFRIGERATE. DO NOT FREEZE 0.5 mL 2 05/16/2022 01/30/2023 valACYclovir (Valtrex) 500 mg Tablet TAKE 1 TABLET BY MOUTH TWICE DAILY FOR 3 DAYS 12/30/2021 08/03/2022 exemestane (Aromasin) 25 mg TabletIndications:Stan bañuelos neoplasm of upper-outer quadrant of left [...] as of this encounter Progress Notes * Jennifer Bunch RN - 05/16/2022 9:13 AM EDT ANGIO NURSING DATABASE Name: Wendy Sandoval Date of : 1965 AGE: 56 y.o. Address: [address] [place] [id number] (home) [phone] (work) Mobile: Telephone Information: Referring Provider: Araceli Levi REASON FOR VISIT: No data recorded Allergies Allergen Reactions ??? Penicillins Thrush ??? Zoloft [Sertraline] PSORIASIS FLARE Order Questions Answers Where will study be performed? [facility] Radiology [120] Is the patient on anticoagulant / antiplatelet therapy ? No Reason for exam and clinical history: AXEL aneurysm, eval for intracranial v extracranial and for treatment options, [place] Does patient require sedation? IV Please ensure a History and Physical exam is completed within 30 days of the Radiology Procedure OK Pertinent PMH: Patient Active Problem List Diagnosis Code ??? Hypertension I10 ??? Depression F32.A ??? Obstructive sleep apnea (adult) (pediatric) G47.33 ??? OA (osteoarthritis) M19.90 ??? Overweight(278.02) E66.3 ??? Hyperparathyroidism E21.3 ??? Malignant neoplasm of upper-outer quadrant of left breast in female, estrogen receptor [id number], Z17.0 ??? S/P breast reconstruction, bilateral Z98.890 ??? Surgery follow-up Z09 ??? Abdominal wound dehiscence T81.30XA ??? Hypokalemia E87.6 ??? Bacterial conjunctivitis H10.9 ??? Seroma of breast N64.89 ??? History of breast cancer Z85.3 ??? Right internal carotid artery aneurysm I67.1 Date/Procedure Meds Given/Comments 04/30/17 Rt breast drain exchange and repositioning, 10Fr. Versed 2mg IV, Fentanyl 100mcg IV. Tolerated well. 05/11/2017 Left axillary aspiration/ 45 ml ??Clear yellow Versed 3 mg IV, Fentanyl 150 mcg IV 05/14/2017??Left Axillary Drain placement?? Fentanyl 100 mcg IV; Pt tolerated procedure well.? 05/25/17 ??Bilat. Sinogram of axillary/breast drain, removed of left side drain Local only with Lido gel. 06/06/17 sinograms b/l breast drains. Mediport procedure cancelled d/t concern of L breast infection. R drain removed. Fentanyl 50 mcg IV? [id number] Left breast aspiration/ 30 ml Fentanyl 100 mg IV 07/03/[address] power-injectable port placement Clindamycin 900 mg IV, versed 3 mg IV, fentanyl 150 mcg IV 09/06/17: Left breast drain placement, 320 cc output, sent for culture Fentanyl 150 mcg, tolerated well 11/20/17 Sinogram L. Breast drain?? No meds/ no intervention 01/25/2018 Mediport removal Fentanyl 150 mcg IV Versed 2 mg IV 07/12/18 Adrenal Vein Sampling ? Cortrosyn at 50 mcg/ hour for total of 250cc, versed 4 mg IV andfentanyl 200 mcg ? 05.19.22 Cerebral Arteriogram - diagnostic Fentanyl 125 mcg, IV. Midazolam 1.5 mg, IV. Radial cocktail: heparin 3000 units, verapamil 2.5 mg, nitroglycerin 200 mcg, IV. ? Arterial Puncture Post Procedure Time of Arterial Puncture: 822 Site: Right radial Closure device used: TR Band Time sheath removed: 09 Time of hemostasis: 899 Hematoma present?: No Anticipated up time: Radial Access: TR Band applied at: 09 # ml's in TR band: 10 ccs 0945 Removed 2mL 8cc in band 0955 Removed 2 mL 6cc in band 1005 Removed 2 mL 4cc in band 1015 Removed 2 mL 2 cc in band 1025 Removed 2mL 0cc in band 1035 Band removed Laboratory Results: Lab Results Component Value Date INR 1.1 11/30/2017 Lab Results Component Value Date CREATININE 1.47 (H) 05/10/2021 Lab Results Component Value Date K 4.3 05/10/2021 Lab Results Component Value Date PLATELET 318 05/10/2021 documented in this encounter H&P Notes * Araceli Levi, METAL BUFFER - 05/18/2022 5:41 PM EDT NEURORADIOLOGY BRIEF PRE-PROCEDURE NOTE Name: Wendy Sandoval Date of : 1965 Indication: AXEL aneurysm Planned Procedure: diagnostic cerebral angiogram, Dr. Watts Chief Complaint/HPI: Wendy Sandoval is a 56 y.o. female presenting for above procedure. Medical history, medications, allergies reviewed. Denies fevers, chills, cough, dyspnea, chest pain, bleeding difficulty. Seen by nephrology 04/28/22 for CKD stage III. Creatinine trends between 1 and 2, felt to be a hemodynamic pattern. No parameters given for angiogram, provider felt patient able to proceed with further workup. Current Outpatient Medications: ??? Stelara 45 mg/0.5 mL subcutaneous injection, MAINTENANCE: INJECT 1 SYRINGE SUBCUTANEOUSLY EVERY12 WEEKS. REFRIGERATE. DO NOT FREEZE, Disp: 0.5 mL, Rfl: 2 ??? valACYclovir (Valtrex) 500 mg Tablet, TAKE 1 TABLET BY MOUTH TWICE DAILY FOR 3 DAYS, Disp: , Rfl: ??? calcium carbonate (CALCIUM 600 ORAL), Take 600 mg by mouth every other day., Disp: , Rfl: ??? exemestane (Aromasin) 25 mg Tablet, Take 1 tablet by mouth daily., Disp: 30 tablet, Rfl: 11 ??? rosuvastatin (Crestor) 10 mg Tablet, TAKE 1 TABLET BY MOUTH DAILY AT BEDTIME, Disp: , Rfl: ??? ibuprofen (ADVIL;MOTRIN) 200 mg Tablet, Take 200 mg by mouth every 6 hours as needed for Pain.,Disp: , Rfl: ??? dilTIAZem (CARDIZEM CD) 240 mg Capsule, Sust. Release 24 hr, Take 240 mg by mouth daily., Disp:, Rfl: ??? spironolactone (ALDACTONE) 25 mg Tablet, Take 1 tablet by mouth daily., Disp: 90 tablet, Rfl: 3 ??? gabapentin (NEURONTIN) 300 mg Capsule, Take 1 capsule by mouth 3 times daily. (Patient taking differently: Take 300 mg by mouth 3 times daily. One in am, two at night), Disp: 90 capsule, Rfl: 3 ??? losartan (COZAAR) 100 mg Tablet, take 1 tablet by mouth once daily, Disp: , Rfl: 0 ??? cholecalciferol, Vitamin D3, 125 mcg (5,000 unit) Tablet, Take by mouth daily., Disp: , Rfl: ??? acetaminophen (TYLENOL) 325 mg Tablet, Take 2 tablets by mouth every 4 hours as needed for Pain., Disp: , Rfl: ??? ferrous gluconate 324 mg (37.5 mg iron) Tablet, Take 324 mg by mouth daily., Disp: , Rfl: ??? fluoxetine (PROZAC) 40 mg capsule, Take 40 mg by mouth daily., Disp: , Rfl: Allergies Allergen Reactions ??? Penicillins Thrush ??? Zoloft [Sertraline] PSORIASIS FLARE Physical Exam: A&Ox3, in NAD. HR reg, s1/s2, RR reg, nonlabored, symmetric chest expansion, lungs CTA. BS active x4, soft, nondistended Face symmetric, tongue/uvulva midline, EOMs full No pronator drift UE/LE strength full ASA/Mallampati: ASA II, Mallampati III Labs: Platelets Date Value Ref Range Status 05/19/2022 337 145 - 357 x10(3)/mcL Final Creatinine Date Value Ref Range Status 05/19/2022 1.65 (H) 0.70 - 1.20 mg/dL Final 02/16/22 external lab creatinine 1.7, eGFR 34.55 Assessment: 56 y.o. female without new findings. Creatinine stable. Will give 1L 0.9% normal salinegiven history of CKD. Position: supine Prophylaxis: n/a Pathology: n/a Sedation: moderate Additional medications for procedure: lidocaine 1%, radial access Consent: obtained Araceli Levi APRN 05/18/2022 5:41 PM documented in this encounter Miscellaneous Notes * Brief Op Note - Priscila Watts MD - 05/19/2022 9:16 AM EDT INTERVENTIONAL RADIOLOGY BRIEF PROCEDURE NOTE Patient Name: Wendy Sandoval : 1965 Case Date: 05/19/2022 Operators: Attending: PRISCILA WATTS All Staff: Staff Role Kelly Vang Metal Hardener Jan Durbin MD Attending Krishna Pittman, test clerk Nurse Priscila Watts MD Visitor Christy Rizo RN RAD IR Nurse Resource Post-operative diagnosis/Indication: Right internal carotid artery aneurysm Name of Procedure Performed: DSA Description of the procedure: R radial access, closed with TR band. RCCA cathterized and imaged. 1.5mg versed, 125mcg fentanyl Findings of the procedure: 4mm AXEL aneurysm just proximal to the ophthalmic artery origin, medially projecting. Cannot rule out intradural component. EBL: <10 mL Specimens: None Complications: No immediate Plan/Disposition: IR recovery. Results of angio discussed with patient in recovery. FULL PROCEDURE NOTE TO FOLLOW IN IMAGE REPORT documented in this encounter Plan of Treatment Upcoming Encounters Date Type Department Care Team (Late st Contact Info) Description 01/22/2024 10:30 AM EST Appointment Mammography/[place] [address] Ladi Mendosa MD [facility] HEMATOLOGY/[place] [address] 01/30/2024 11:30 AM EST Office Visit Dermatology at [facility] [address] [place] [id number] Nilda Luis MD [facility] [address] [address] 02/15/2024 9:30 AM [place] [phone] [place] [address] documented as of this encounter Procedures Procedure Name Priority Date/Time Associated Diagnosis Comments IR ARTERIOGRAM CEREBRAL Routine 05/19/2022 9:12 AM EDT Right internal carotid artery aneurysm HC CREATININE Routine 05/19/2022 6:45 AM EDT Right internal carotid artery aneurysm HC PLATELET COUNT Routine 05/19/2022 6:4 5 AM EDT Right internal carotid artery aneurysm documented in this encounter Results * IR Arteriogram Cerebral (05/19/2022 9:12 AM EDT) Anatomical Region Laterality Modality X-Ray Angiograph y Impressions 06/06/2022 3:20 PM EDT 1. ??Today's diagnostic cerebral angiogram demonstrates a 4mm aneurysm at of the right internal carotid artery medial to the ophthalmic artery origin. Cannot exclude an intradural component. 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 2. ?? 3-D rotational angiographic data was reformatted on a dedicated workstation by the attending physician. 3. ?? Right wrist ??hemostasis achieved with TR band compression. 4. ??Findings discussed with the patient and her at the time of completion of the diagnostic angiogram. Given the strong family history of brain aneurysms, the patient favors treatment. We will work to set up treatment with a flow diverting stent at the next available date. Subarachnoid hemorrhage/ruptured aneurysm signs and symptoms and precautions given. ATTESTATION Signer name: Priscila Watts MD I attest that I was [...] who have questions please contact the health medicare insurance specialist that requested your imaging first. ? Electronically signed by: Priscila Watts MD, [facility] ([phone]), at 06/06/2022 3:20 PM Narrative 06/06/2022 3:20 PM EDT PROCEDURE NAME: IR ARTERIOGRAM CEREBRAL CLINICAL HISTORY: Patient is a 56-year-old woman with a strong family history of brain aneurysm with evidence of 2 mm right ICA aneurysm and screening MRA. Diagnostic cerebral angiography is indicated for further characterization of potential treatment planning. COMPARISON: MR head March 28, 2022 OPERATING PHYSICIANS: 1. ??Jan Durbin MD, Interventional Neuroradiology Attending. 2. ??Priscila Watts MD, Interventional Neuroradiology Attending PROCEDURE: Transradial cerebral angiogram. ANESTHESIA: Moderate conscious sedation was achieved with IV medications administered by Priscila Watts MD. The times and doses are [...] the procedure log and report. I, Dr Priscila Watts MD, attest that I personally was present for continuous 1:1 monitoring throughout the entire procedure and while sedation was being administered. The above times reflect physician/patient amfc-uh-peed time. MEDICATIONS: 1% Lidocaine 10 ml SC Fentanyl 125 mcg IV Versed 1.5 mg IV Heparin 3000 U IA Verapamil 2.5mg IA Nitroglycerin 200mcg IA CONTRAST VOLUME: 60 ml of Visipaque 320 contrast. RADIATION EXPOSURE: Fluoro time: 14.4 mins, Total Air Kerma (K)*: 143 mGy COMPLICATIONS: None ESTIMATED BLOOD LOSS: < 10ml ACCESS: Right radial artery CLOSURE: TR band compression VESSELS SELECTED: 1. ??Right common carotid artery VIEWS OBTAINED: 1. ??Right radial and brachial arteries, AP arm and forearm roadmap view. (Series 1) 2. ??Right common carotid artery, AP and lateral intracranial and extracranial views. (Series 2) 3. ??Right common carotid artery, AP and lateral oblique magnified views. (Series 3) 4. ??Right common carotid artery, 3-D reconstruction images (series 4) INTERVENTION: None. EQUIPMENT: ?? 1. ??Micropuncture access kit. 2. ??5-Slovak, 10 cm radial Glidesheath 3. ??5-Slovak Mann II Glidecatheter 4. ??1.5 J Glidewire 5. ??0.035 x 150 cm long tapered angled Glidewire 6. ??TR band compression PROCEDURE COMMENTS: After explaining the risks and [...] the supine position on the angiography table. The right forearm and both groins were prepped and draped in the usual sterile fashion. ??A hard stop time-out was then performed to verify the patient's identity, the planned procedure, and procedure location. After proper patient identification and verification of the planned procedure, the procedure continued. Using ultrasound guidance, the skin overlying the radial artery was infiltrated with local anesthetic. The radial artery was accessed using a micropuncture kit without difficulty under ultrasound guidance and the 5-Slovak, 10 cm radial Glidesheath was placed and flushed. An infusion of spasmolytic cocktail specified above was hemodiluted to a volume of 20 mL of aspirated blood then infused into the radial artery over 2-3 min. The sheath was intermittently flushed with heparinized saline solution as needed during the procedure. The diagnostic catheter was then double flushed on the back table and hooked to continuous heparinized saline flush via pressure bag. Roadmap was obtained of the right radial artery in the forearm and arm to evaluate for a radial artery loop prior to advancing the guidewire and diagnostic catheter proximally. Under continuous fluoroscopic and roadmap guidance the catheter and guidewire were advanced proximally without difficulty. The diagnostic catheter and guidewire were used to selectively catheterize the vessels enumerated above. Multiple angiographic runs were performed. 3-D rotational angiographic data was reformatted on a dedicated workstation by Dr. Watts. At the conclusion of the procedure, all catheters and equipment were removed and the right wrist was reprepped and draped in the usual sterile fashion. ??Patent hemostasis was obtained by application of TR band compression without difficulty. The patient tolerated the procedure well and left interventional suite in stable condition. FINDINGS: The following is a detailed description of each angiographic run: RIGHT RADIAL AND BRACHIAL ARTERIES, AP ARM and FOREARM ROADMAP: The arteries of the arm are of normal appearance with no focal stenosis. There is no significant radial artery loop present. RIGHT COMMON CAROTID ARTERY, AP AND LATERAL INTRACRANIAL AND EXTRACRANIAL VIEWS. (SERIES 2) The visualized right external carotid artery and its branches are widely patent. There is normal appearance of the occipital artery and internal maxillary and its terminal branches. ?? The right superficial temporal artery is normal in course and caliber. ?? No dural arteriovenous fistula identified. The distal cervical and petrous segments of the right internal carotid artery are smooth and normal in course and caliber. The cavernous right internal carotid artery is smooth and normal in course and caliber up to the junction with the dural ring where there is a medially and inferiorly projecting 4 mm aneurysm, favored to represent either a superior hypophyseal origin aneurysm or carotid cave aneurysm, which is likely to have an intradural component. The ophthalmic and anterior choroidal arteries are patent. ?? The right anterior cerebral artery is smooth and normal in course and caliber. ??There is a patent anterior communicating artery complex, and there is flow into the contralateral left anterior cerebral artery. ??The right middle cerebral artery is smooth and normal in course and caliber. ??The parenchymal and venous phases are normal. ?? The dural venous sinuses are patent. ?? No additional aneurysms or vascular malformations are identified. RIGHT COMMON CAROTID ARTERY, AP AND LATERAL OBLIQUE MAGNIFIED VIEWS. (SERIES 3) Transorbital/oblique views of the right internal carotid artery was were performed to evaluate the middle cerebral artery trifurcation as well as the anterior communicating artery. The anterior communicating artery complex is not opacified on the present injection, however there is no double density to suggest aneurysm of the right A1/A2 junction. There is no aneurysm at the middle cerebral artery trifurcation. Redemonstration of the periophthalmic aneurysm previously described. RIGHT COMMON CAROTID ARTERY, 3-D RECONSTRUCTION IMAGES (SERIES 4) The 3-D rotational angiographic data was reformatted on a dedicated workstation by Dr. Watts to obtain a 3-D angiogram. 4 mm medially and inferiorly projecting ICA aneurysm around the expected location of the dural ring. Intradural location or at least an intradural component cannot be excluded. Procedure Note Priscila Watts MD - 06/06/2022 PROCEDURE NAME: IR ARTERIOGRAM CEREBRAL CLINICAL HISTORY: Patient is a 56-year-old woman with a strong familyhistory of brain aneurysm with evidence of 2 mm right ICA aneurysm and screeningMRA. Diagnostic cerebral angiography is indicated for further characterizationof potential treatment planning. COMPARISON: MR head March 28, 2022 OPERATING PHYSICIANS: 1. Jan Durbin MD, Interventional Neuroradiology Attending. 2. Priscila Watts MD, Interventional Neuroradiology Attending PROCEDURE: Transradial cerebral angiogram. ANESTHESIA: Moderate conscious sedation was achieved with IV medications administeredby Priscila Watts MD. The times and doses are accurately reflected in the patient?s medicalrecord. Oxygenation was given via nasal cannula and the patient was monitoredclosely with pulse oximetry, blood pressure, and vital signs, by an independent, trained, qualified observer throughout the procedure to ensure the safetyof the administration of the drugs. Full details are available in the procedurelog and report. I, Dr Priscila Watts MD, attest that I personally was present forcontinuous 1:1 monitoring throughout the entire procedure and while sedation wasbeing administered. The above times reflect physician/patient [id number]. MEDICATIONS: 1% Lidocaine 10 ml SC Fentanyl 125 mcg IV Versed 1.5 mg IV Heparin 3000 U IA Verapamil 2.5mg IA Nitroglycerin 200mcg IA CONTRAST VOLUME: 60 ml of Visipaque 320 contrast. RADIATION EXPOSURE: Fluoro time: 14.4 mins, Total Air Kerma (K)*: 143 mGy COMPLICATIONS: None ESTIMATED BLOOD LOSS: < 10ml ACCESS: Right radial artery CLOSURE: TR band compression VESSELS SELECTED: 1. Right common carotid artery VIEWS OBTAINED: 1. Right radial and brachial arteries, AP arm and forearm roadmap view.(Series 1) 2. Right common carotid artery, AP and lateral intracranial andextracranial views. (Series 2) 3. Right common carotid artery, AP and lateral oblique magnified views.(Series 3) 4. Right common carotid artery, 3-D reconstruction images (series 4) INTERVENTION: None. EQUIPMENT: 1. Micropuncture access kit. 2. 5-Slovak, 10 cm radial Glidesheath 3. 5-Slovak Mann II Glidecatheter 4. 1.5 J Glidewire 5. 0.035 x 150 cm long tapered angled Glidewire 6. TR band compression PROCEDURE COMMENTS: After explaining the risks and [...] in thesupine position on the angiography table. The right forearm and both groinswere prepped and draped in the usual sterile fashion. A hard stop time-out wasthen performed to verify the patient's identity, the planned procedure, andprocedure location. After proper patient identification and verification of theplanned procedure, the procedure continued. Using ultrasound guidance, the skin overlying the radial artery wasinfiltrated with local anesthetic. The radial artery was accessed using amicropuncture kit without difficulty under ultrasound guidance and the 5-Slovak, 10 cmradial Glidesheath was placed and flushed. An infusion of spasmolytic cocktail specified above was hemodiluted to a volume of 20 mL of aspirated bloodthen infused into the radial artery over 2-3 min. The sheath wasintermittently flushed with heparinized saline solution as needed during the procedure. The diagnostic catheter was then double flushed on the back table andhooked to continuous heparinized saline flush via pressure bag. Roadmap was obtainedof the right radial artery in the forearm and arm to evaluate for a radialartery loop prior to advancing the guidewire and diagnostic catheter proximally.Under continuous fluoroscopic and roadmap guidance the catheter and guidewirewere advanced proximally without difficulty. The diagnostic catheter andguidewire were used to selectively catheterize the vessels enumerated above.Multiple angiographic runs were performed. 3-D rotational angiographic data was reformatted on a dedicatedworkstation by Dr. Watts. At the conclusion of the procedure, all catheters and equipment wereremoved and the right wrist was reprepped and draped in the usual sterile fashion.Patent hemostasis was obtained by application of TR band compression without difficulty. The patient tolerated the procedure well and left interventional suite instable condition. FINDINGS: The following is a detailed description of each angiographic run: RIGHT RADIAL AND BRACHIAL ARTERIES, AP ARM and FOREARM ROADMAP: Thearteries of the arm are of normal appearance with no focal stenosis. There is nosignificant radial artery loop present. RIGHT COMMON CAROTID ARTERY, AP AND LATERAL INTRACRANIAL AND EXTRACRANIALVIEWS. (SERIES 2) The visualized right external carotid artery and its branches are widelypatent. There is normal appearance of the occipital artery and internal maxillaryand its terminal branches. The right superficial temporal artery is normalin course and caliber. No dural arteriovenous fistula identified. The distal cervical and petrous segments of the right internal carotidartery are smooth and normal in course and caliber. The cavernous rightinternal carotid artery is smooth and normal in course and caliber up to thejunction with the dural ring where there is a medially and inferiorly projecting 4mm aneurysm, favored to represent either a superior hypophyseal originaneurysm or carotid cave aneurysm, which is likely to have an intradural component.The ophthalmic and anterior choroidal arteries are patent. The rightanterior cerebral artery is smooth and normal in course and caliber. There is apatent anterior communicating artery complex, and there is flow into thecontralateral left anterior cerebral artery. The right middle cerebral artery is smoothand normal in course and caliber. The parenchymal and venous phases arenormal. The dural venous sinuses are patent. No additional aneurysms orvascular malformations are identified. RIGHT COMMON CAROTID ARTERY, AP AND LATERAL OBLIQUE MAGNIFIED VIEWS.(SERIES 3) Transorbital/oblique views of the right internal carotid artery was were performed to evaluate the middle cerebral artery trifurcation as well asthe anterior communicating artery. The anterior communicating artery complexis not opacified on the present injection, however there is no double densityto suggest aneurysm of the right A1/A2 junction. There is no aneurysm at themiddle cerebral artery trifurcation. 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 RIGHT COMMON CAROTID ARTERY, 3-D RECONSTRUCTION IMAGES (SERIES 4) The 3-D rotational angiographic data was reformatted on a dedicatedworkstation by Dr. Watts to obtain a 3-D angiogram. 4 mm medially and inferiorlyprojecting ICA aneurysm around the expected location of the dural ring. Intradurallocation or at least an intradural component cannot be excluded. IMPRESSION 1. 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 Favor carotid cave or superiorhypophyseal aneurysm. 2. 3-D rotational angiographic data was reformatted on a dedicatedworkstation by the attending physician. 3. Right wrist hemostasis achieved with TR band compression. 4. Findings discussed with the patient and her at the time of completion of the diagnostic angiogram. Given the strong family history ofbrain aneurysms, the patient favors treatment. We will work to set up treatmentwith a flow diverting stent at the next available date. Subarachnoid hemorrhage/ruptured aneurysm signs and symptoms and precautions given. ATTESTATION Signer name: Priscila Watts MD I attest that I was [...] patients who have questions please contactthe health medicare insurance specialist that requested your imaging first. Electronically signed by: Priscila Watts MD, [facility]([phone]), at 06/06/2022 3:20 PM [facility] L [facility]AL [facility] IMG IR ORDERABLES * (ABNORMAL) Creatinine (05/19/2022 6:45 AM EDT) Creatinine 1.65(H) 0.70 - 1.20 mg/dL [facility] Estimated GFR 36(L) >=60 mL/min/1. 73 m?? [facility] Comment: This patient's estimated GFR [...] and symptoms in addition to eGFR. Blood 05/19/2022 6:45 AM EDT 05/19/2022 6:56 AM EDT Narrative Resulting Agency Comment Spec In Lab Araceli L Levi METAL [facility]FFER CHEMISTRY ORDERABLES [facility] [place] [address] * Platelet count (05/19/2022 6:45 AM EDT) Platelets 337 145 - 357 x10(3)/mc L [facility] Plat Immature % 1.0 0.0 - 7.4 % [facility] Comment: Limitation of the Immature Platelet Fraction (IPF)-May be less reliable when the platelet count is less than 49r715/uL due to statistical imprecision. The IPF value [...] in a decreased state of production. References: [employer] The Clinical Value of the Immature Platelet Fraction (IPF) in Cell Recovery Document Number [id number] 07/2010 [employer] 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, nonruptured documented in this encounter Administered Medications Inactive Administered Medications - up to 3 most recent administrations Medication Order MAR Action Action Date Dose Rate Site fentaNYL (pf) (50 mcg/mL) multi-dose injection 25-50 mcg 25-50 mcg, Intravenous, EVERY 3 MIN PRN, Starting on Sun05/19/22 at 0724, Until Sun05/19/22 at 1134, Pain, per unit protocol, For use in [...] mcg/dose, 250 mcg/hour, Angio/IR (Intra-Procedure), Routine Given 05/19/2022 8:57 AM EDT 25 mcg Given 05/19/2022 8:23 AM EDT 25 mcg Given 05/19/2022 8:21 AM EDT 25 mcg heparin (porcine) (1,000 units/mL) injection 3,000 Units 3,000 Units, Intra-arterial, ONCE, 1 dose, On Sun05/19/22 at 0745, For radial artery access. For use in Interventional Radiology (IR) only for procedure with direct provider supervision and verbal order., Angio/IR (Intra-Procedure), Routine Given 05/19/2022 8:26 AM EDT 3,000 Units iodixanoL (Visipaque) (320 mg/mL) injection solution 150 mL 150 mL, Intra-arterial, ONCE PRN, 1 dose, Starting on Sun05/19/22 at 0913, Until Sun05/19/22 at 0913, Per Protocol, Routine Given 05/19/2022 9:13 AM EDT 60 mLs lidocaine (Xylocaine) 1% (10 mg/mL) injection 10 mg 10 mg, Subcutaneous, ONCE, 1 dose, On Sun05/19/22 at 0745, For use in Interventional Radiology (IR) only for procedure with direct provider supervision and verbal order., Angio/IR (Intra-Procedure), Routine Given 05/19/2022 8:20 AM EDT 5 mg midazolam (pf) (Versed) (1 mg/mL) multi-dose injection 0.5-1 mg 0.5-1 mg, Intravenous, EVERY 3 MIN PRN, Starting on Sun05/19/22 at 0724, Until Sun05/19/22 at 1134, Sedation, For use in Interventional Radiology (IR) [...] mg/dose, 5 mg/hour., Angio/IR (Intra-Procedure), Routine Given 05/19/2022 8:21 AM EDT 0.5 mg Given 05/19/2022 8:08 AM EDT 0.5 mg Given 05/19/2022 7:59 AM EDT 0.5 mg nitroGLYcerin 100 mcg/mL intracoronary dilution 200 mcg 200 mcg, Intra-arterial, ONCE, 1 dose, On Sun05/19/22 at 0745, For radial artery access. For use in Interventional Radiology (IR) only for procedure with direct provider supervision and verbal order., Angio/IR (Intra-Procedure), Routine Given 05/19/2022 8:25 AM EDT 200 mcg sodium chloride 0.9% infusion 1,000 mL, at 100 mL/hr, Intravenous, CONTINUOUS, Starting on Sun05/19/22 at 0745, Until Sun05/19/22 at 1134, Angio/IR (Day of Procedure) New Bag 05/19/2022 8:00 AM EDT 1,000 mLs 100 mL/hr verapamiL (Isoptin) (2.5 mg/mL) injection 2.5 mg 2.5 mg, Intra-arterial, ONCE, 1 dose, On Sun05/19/22 at 0745, Administer over 2 Minutes, For radial artery access. For use in Interventional Radiology (IR) only for procedure with direct provider supervision and verbal order., Angio/IR (Intra-Procedure) Given 05/19/2022 8:26 AM EDT 2.5 mg 30 mL/hr documented in this encounter Care Teams Expense Clerk Relationship Specialty Start Date End Date Trinh Coates MD [facility] [address] [place] [address] PCP - General 01/11/10 documented as of this encounter
--- OUTSIDE RECORDS SUMMARY | 2023-09-07 11:25 | XMS_ITS | Encounter Summary ---
Author Organization [facility] [place] [address] Care Team Providers Care Medical Researcher Name Role Phone Trinh Coates MD Primary Care Provider [phone] Reason for Visit * Auth/Cert (Routine) Specialty Diagnoses / Procedures Referred By Diamante t Referred To Contact Diagnoses Cerebral aneurysm, nonruptured AXEL pipeline Procedures PRO PERM OCCLUSION/EMBOLIZATION, PERCUT, WILDLIFE REHABILITATOR @TRANSCATHETER OCCLUSION/EMBOLIZATION FOR TUMOR DESTRUCTION (WRVU 20.12) [place] [address] [facility] Referral ID Status Reason Start Date Expiration Date Visits Re quested Visits Authorized [id number] 1 1 Encounter Details Date Type Department Care Team (Late st Contact Info) Description 07/24/2022 7:30 AM EDT - 07/24/2022 11:50 [place] [address] [place] [address] @TRANSCATHETER OCCLUSION/EMBOLIZATION FOR TUMOR DESTRUCTION (WRVU 20.12) Social History Tobacco Use Types Packs/Day Years [...] Sign Reading Time Taken Comments Blood Pressure 128/78 07/24/2022 6:18 AM EDT Pulse 84 07/24/2022 11:50 AM EDT Temperature 36.5 ??C (97.7 ??F) 07/24/2022 6:18 AM ED T Respiratory Rate 16 07/24/2022 11:50 AM EDT Oxygen Saturation 99% 07/24/2022 11:50 AM EDT Inhaled Oxygen Concentration - - [...] Hospital Course: Patient was admitted electively to [facility] via the same day surgery program and [...] provider. Please call the Neurosurgery Office at [phone] if you do not receive a scheduled [...] have tobacco dependence clinics in these locations: [facility] for Tobacco-Free Communities: DEMETRIA Reardon [facility] Tobacco Treatment [place], [place] Other Programs at [facility] in [place] Living Free of Tobacco support group: For anyone who has quit tobacco or is considering quitting tobacco. [facility] Health Education Center, Level 4, [place] 3:30 to 4:30 p.m. on the sunday of every month. Other Programs in the Area [facility] in [place] One-on-one counseling, hypnosis. Arpita Bess [facility] in [place], [place] One-on-one counseling, QuitLine, classes. Alejandra Hall [facility]: One-on-one counseling. All ages and incomes eligible. Breann [facility]: Classes & support group. [place] [facility] in [place], [place] One-on-one counseling, QuitLine, classes, hypnosis therapy. Lorie Linares Information about Quitting Smoking and Tobacco See our Quitting Smoking - Information and Materials page (http://www.[facility].org/medical- information/smoking/information_on_quitting_smoking.html) for educational information about quitting smoking, downloadable smoking cessation materials, podcasts, websites, helplines, and more. FOLLOW UP PLAN: Future Appointments Date Time Provider Department Center 08/03/2022 10:15 AM Tahira Cardenas APRN [facility] [place] [facility] HOW TO REACH NEUROSURGERY Office Hours (Sunday through Sunday 8am-5pm): Call On weekends or after office hours (after 5pm or before 8am): Call [phone] and ask the liquor bridge operator to page the Neurosurgery Resident/Advanced Practice Provider taxation inspector. *Your surgeon may not be dinkey motor operator (especially after office hours or on the weekend) so be ready totell about yourself and your surgery when you call. Neurosurgery Providers Adult Neurosurgery Dr. Curtis Mann Pediatric Neurosurgery Dr. Arpita Jarrett Advanced Practice Providers Nallely Barry, Nurse Practitioner (outpatient) Jackie Sarmiento, Physician Paraoptometric (inpatient/outpatient: neuro-oncology) Halie Grande, Nurse Practitioner (inpatient) Christy Bentley, Physician Paraoptometric (inpatient) Manuel Nunez, Nurse Practitioner (outpatient: pediatric) Araceli Levi, Nurse Practitioner (outpatient: vascular) Venessa Mckeon, Physician Paraoptometric (outpatient: spine) Kana Melendrez, Nurse Practitioner (inpatient/outpatient) Mitch Aguilar, Physician Paraoptometric (outpatient) Outpatient Nurses Rachna Guerrero General Instructions None Future Appointments and Orders Future Appointments and Orders Future Appointments Provider Department Dept Phone 08/03/2022 10:15 AM Tahira Cardenas APRN Radiation Oncology at [facility] Arrive at: [facility] door at end of hallway [phone] Future Orders Complete By Expires CT Angiogram [place] [[id number] Custom] 10/25/2022 04/26/2023 Process Instructions: Scheduling Instructions: Questions: Clinical information / arteaga questions for radiologist: Where will study be performed?: [facility] Radiology Stat read required?: Does patient require sedation?: GA rationale: Date of injury if applicable: Notify physician (specify) [[id number] Custom] As directed Process Instructions: Scheduling Instructions: Comments: *Nausea or vomiting *Temperature of Greater than 100.4 Degrees Farenheit *Redness, tenderness, odor, or discharge around the incision site *Severe Pain Questions: Scheduled Appointments: Future Appointments Date Time Provider Department Center 08/03/2022 10:15 AM Tahira Cardenas APRN [facility] Rad [facility] Primary Care Doctor: Trinh Coates MD [phone] Signed: STEVAN Pink 07/25/2022 documented in this encounter Discharge Instructions * Patient Instructions* Christy Bentley PA - 07/25/2022 9:55 AM EDT [...] provider. Please call the Neurosurgery Office at [phone] if you do not receive a scheduled [...] have tobacco dependence clinics in these locations: [facility] for Tobacco-Free Communities: [place] [facility] Tobacco Treatment [place], [place] Other Programs at [facility] in [place] Living Free of Tobacco support group: For anyone who has quit tobacco or is considering quitting tobacco. [facility] Health Education Center, Level 4, [place] 3:30 to 4:30 p.m. on the second Sunday of every month. Other Programs in the Area [facility] in [place] One-on-one counseling, hypnosis. Arpita Bess [facility] in [place], [place] One-on-one counseling, QuitLine, classes. Alejandra Hall [facility]: One-on-one counseling. All ages and incomes eligible. [facility]: Classes & support group. [facility] in [place], [place] One-on-one counseling, QuitLine, classes, hypnosis therapy. Lorie Linares Information about Quitting Smoking and Tobacco See our Quitting Smoking - Information and Materials page (http://www.[facility].org/medical- information/smoking/information_on_quitting_smoking.html) for educational information about quitting smoking, downloadable smoking cessation materials, podcasts, websites, helplines, and more. FOLLOW UP PLAN: Future Appointments Date Time Provider Department Center 08/03/2022 10:15 AM Tahira Cardenas APRN [facility] [place] [facility] HOW TO REACH NEUROSURGERY Office Hours (Sunday through Sunday 8am-5pm): Call On weekends or after office hours (after 5pm or before 8am): Call [phone] and ask the liquor bridge operator to page the Neurosurgery Resident/Advanced Practice Provider taxation inspector. *Your surgeon may not be dinkey motor operator (especially after office hours or on the weekend) so be ready totell about yourself and your surgery when you call. Neurosurgery Providers Adult Neurosurgery Dr. Curtis Mann Pediatric Neurosurgery Dr. Arpita Jarrett Advanced Practice Providers Nallely Barry, Nurse Practitioner (outpatient) Jackie Sarmiento, Physician Paraoptometric (inpatient/outpatient: neuro-oncology) Halie Grande, Nurse Practitioner (inpatient) Christy Bentley, Physician Paraoptometric (inpatient) Manuel Nunez, Nurse Practitioner (outpatient: pediatric) Araceli Levi, Nurse Practitioner (outpatient: vascular) Venessa Mckeon, Physician Paraoptometric (outpatient: spine) Kana Melendrez, Nurse Practitioner (inpatient/outpatient) Mitch Aguilar, Physician Paraoptometric (outpatient) Outpatient Nurses Rachna Guerrero documented in [...] AM EDT NEUROSURGERY PROGRESS NOTE PLEASE PAGE [phone] WITH QUESTIONS ID: Wendy Sandoval is a [...] s/p flow diverting stent placement via [employer]. HD# 1 POD # 1 Day Post-Op 07/24/22, Dr. 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 -D/c Treviño and ensure voiding -Mobilize -ADAT -D/c home with f/u as follows: --continue DAPT --f/u in 2wks with ASHTYN for check up --f/u in 3 months with AM with CTA --f/u in 6 months with AM for DSA -PT/OT/HARDNESS INSPECTOR : } -DISPOSITION: home today -FULL CODE Please page [phone] with questions/concerns for in-house NSGY patients IMAGING: [...] who have questions please contact the health healthcare interpreter that requested your imaging first. CATIONS: Scheduled [...] bpm] BMI: Weight: 76.2 kg (168 lb) (07/24/22 0618) BMI (Calculated): 32.81 BMI Classification: Obese I/O: [...] Watts MD - 07/25/2022 3:31 PM EDT I, Joanna Watts, discussed the patient with [...] past medical history of psoriasis(on Stelara since 2018), left breast cancer s/p susan mastectomy and [...] IR Arteriogram Cerebral 05/19/2022 Joanna Watts MD [facility] INTERVENTIONL RAD IR DRAIN CHECK/CHANGE/REMOVE 11/20/2017 IR Drain Check/Change/Remove 11/20/2017 Marcos Dey MD [facility] INTERVENTIONL RAD IR MEDIPORT REMOVAL 01/25/2018 IR Mediport Removal 01/25/2018 Scooby Muñoz R, PUG MILL OPERATOR [facility] INTERVENTIONL RAD PRG EMG, LARYNX N/A 11/02/2015 FACIAL NERVE MONITORING, SETUP LARYNGEAL performed by Valentina Lucas MD at [facility] MAIN OR PRO BREAST RECONSTRUCTION IMMT/DLYD W/TISS DRAWER IN HAND SBSQ EXPANSION Bilateral 04/26/2017 BREAST RECONSTRUCTION, IMMEDIATE OR DELAYED, W/ TISSUE DRAWER IN HAND, INCLUDING SUBSEQUENT EXPANSION (WRVU 18.5) performed by Andre Gimenez MD at [facility] OR PRO BREAST RECONSTRUCTION W FREE FLAP Bilateral 04/26/2017 @BREAST RECONSTRUCTION W/ FREE FLAP, SUSAN (WRVU 42.58) performed by Andre Gimenez MD at [facility] [place] PRO BREAST RECONSTRUCTION W/LATSMS D/SI FLAP WO PRSTHC IMPL Bilateral 12/12/2017 @BREAST RECONSTRUCTION W/ LAT DORSI FLAP,W/O IMPLANT, SUSAN (WRVU 23.36) performed by Andre Gimenez MD at [facility] OR [facility] DEBRIDEMENT SUBCUTANEOUS TISSUE 20 SQCM/< 06/22/2017 DEBRIDEMENT SKIN AND SUBCU, BREAST (WRVU 1.01) performed by Andre Gimenez MD at [facility] MAIN OR PRO EXPLORE PARATHYROID GLANDS N/A 11/02/2015 PARATHYROIDECTOMY OR EXPLORATION OF PARATHYROID(S) performed by Valentina Lucas MD at [facility] OR [facility] FULL THICK GRFT TRUNK <20 SQCM Bilateral 04/26/2017 FTSG, FREE, DIR CLOSE DONOR SITE, TRUNK, 20 SQ CM OR LESS (WRVU 9.15) performed by Andre Gimenez MD at [facility] OR PRO INCISION OF LYMPH CHANNELS Left 10/18/2018 INCISION & DRAINAGE LYMPHOCELE (WRVU 6.81) performed by Andre Gimenez MD at [facility] OR PRO IV INJ TO TEST BLOOD FLOW IN FLAP/GRAFT Left 10/18/2018 IV INJECTION, AGENT TO TEST VASC FLOW IN FLAP OR GRAFT, ENT (WRVU 1.95) performed by Andre Gimenez MD at [facility] MAIN OR PRO MASTECTOMY, SIMPLE, COMPLETE Bilateral 04/26/2017 MASTECTOMY, SIMPLE, COMPLETE-SUSAN (WRVU 15.85) performed by Jolie Menendez MD at [facility] MAIN OR PRO PARTIAL REMOVAL OF RIB Bilateral 04/26/2017 EXCISION OF RIB, PARTIAL (WRVU 7.26) performed by Andre Gimenez MD at [facility] MAIN OR PRO REMOVE ARMPITS LYMPH NODES COMPLT Left 04/26/2017 LYMPHADENECTOMY, AXILLARY, COMPLETE (WRVU 13.87) performed by Jolie Menendez MD at [facility] MAIN OR PRO REPLACE TISSUE DRAWER IN HAND Bilateral 12/12/2017 TISSUE DRAWER IN HAND REPLACEMENT, WITH PERMANENT PROSTHESIS, SUSAN (WRVU 8.01) performed by Andre Gimenez MD at [facility] MAIN OR PRO REVISION RECONSTRUCTED BREAST Left 06/22/2017 REVISION OF RECONSTRUCTED BREAST (WRVU 10.41) performed by Andre Gimenez MD at [facility] MAIN OR PRO REVISION RECONSTRUCTED BREAST Bilateral 12/12/2017 REVISION OFRECONSTRUCTED BREAST, SUSAN (WRVU 10.41) performed by Andre Gimenez MD at [facility] MAIN OR PRO THYMECTOMY, TRANSCERVICAL N/A 11/02/2015 THYMECTOMY, TRANSCERVICAL APPROACH performed by Valentina Lucas MD at [facility] MAIN OR SHOULDER SURGERY Left UMBILICAL [...] past medical history of psoriasis(on Stelara since 2018), left breast cancer s/p susan mastectomy and [...] IR Arteriogram Cerebral 05/19/2022 Joanna Watts MD [facility] INTERVENTIONL RAD IR DRAIN CHECK/CHANGE/REMOVE 11/20/2017 IR Drain Check/Change/Remove 11/20/2017 Marcos Dey MD [facility] INTERVENTIONL RAD IR MEDIPORT REMOVAL 01/25/2018 IR Mediport Removal 01/25/2018 Scooby Muñoz, PUG MILL OPERATOR [facility] INTERVENTIONL RAD PRG EMG, LARYNX N/A 11/02/2015 FACIAL NERVE MONITORING, SETUP LARYNGEAL performed by Valentina Lucas MD at [facility] OR PRO BREAST RECONSTRUCTION IMMT/DLYD W/TISS DRAWER IN HAND SBSQ EXPANSION Bilateral 04/26/2017 BREAST RECONSTRUCTION, IMMEDIATE OR DELAYED, W/ TISSUE DRAWER IN HAND, INCLUDING SUBSEQUENT EXPANSION (WRVU 18.5) performed by Andre Gimenez MD at [facility] OR PRO BREAST RECONSTRUCTION W FREE FLAP Bilateral 04/26/2017 @BREAST RECONSTRUCTION W/ FREE FLAP, SUSAN (WRVU 42.58) [facility]AST RECONSTRUCTION W/LATSMS D/SI FLAP WO PRSTHC IMPL Bilateral 12/12/2017 @BREAST RECONSTRUCTION W/ LAT DORSI FLAP,W/O IMPLANT, SUSAN (WRVU 23.36) performed by Andre Gimenez MD at [facility] OR [facility] DEBRIDEMENT SUBCUTANEOUS TISSUE 20 SQCM/< 06/22/2017 DEBRIDEMENT SKIN AND SUBCU, BREAST (WRVU 1.01) performed by Andre Gimenez MD at [facility] OR [facility] EXPLORE PARATHYROID GLANDS N/A 11/02/2015 PARATHYROIDECTOMY OR EXPLORATION OF PARATHYROID(S) performed by Valentina Lucas MD at [facility] OR [facility] FULL THICK GRFT TRUNK <20 SQCM Bilateral 04/26/2017 FTSG, FREE, DIR CLOSE DONOR SITE, TRUNK, 20 SQ CM OR LESS (WRVU 9.15) performed by Andre Gimenez MD at [facility] OR [facility] INCISION OF LYMPH CHANNELS Left 10/18/2018 INCISION & DRAINAGE LYMPHOCELE (WRVU 6.81) performed by Andre Gimenez MD at [facility] OR PRO IV INJ TO TEST BLOOD FLOW IN FLAP/GRAFT Left 10/18/2018 IV INJECTION, AGENT TO TEST VASC FLOW IN FLAP OR GRAFT, ENT (WRVU 1.95) performed by Andre Gimenez MD at [facility] MAIN OR PRO MASTECTOMY, SIMPLE, COMPLETE Bilateral 04/26/2017 MASTECTOMY, SIMPLE, COMPLETE-SUSAN (WRVU 15.85) performed by Jolie Menendez MD at [facility] MAIN OR PRO PARTIAL REMOVAL OF RIB Bilateral 04/26/2017 EXCISION OF RIB, PARTIAL (WRVU 7.26) performed by Andre Gimenez MD at [facility] MAIN OR PRO REMOVE ARMPITS LYMPH NODES COMPLT Left 04/26/2017 LYMPHADENECTOMY, AXILLARY, COMPLETE (WRVU 13.87) performed by Jolie Menendez MD at [facility] MAIN OR PRO REPLACE TISSUE DRAWER IN HAND Bilateral 12/12/2017 TISSUE DRAWER IN HAND REPLACEMENT, WITH PERMANENT PROSTHESIS, SUSAN (WRVU 8.01) performed by Andre Gimenez MD at [facility] MAIN OR PRO REVISION RECONSTRUCTED BREAST Left 06/22/2017 REVISION OF RECONSTRUCTED BREAST (WRVU 10.41) performed by Andre Gimenez MD at [facility] MAIN OR PRO REVISION RECONSTRUCTED BREAST Bilateral 12/12/2017 REVISION OFRECONSTRUCTED BREAST, SUSAN (WRVU 10.41) performed by Andre Gimenez MD at [facility] MAIN OR PRO THYMECTOMY, TRANSCERVICAL N/A 11/02/2015 THYMECTOMY, TRANSCERVICAL APPROACH performed by Valentina Lucas MD at [facility] OR SHOULDER SURGERY Left UMBILICAL [...] and her son. Her Daughter lives in [place] and is planning on staying with her for a short while after discharge. 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 Reason for Hospitalization: flow diverting stent placement via [employer]. Covid Vaccination Status: 1st, 2nd & booster [...] surrogate would be surrogate decision maker per [place] surrogate decision making law. (Only good for 180 days) Any patient receiving care in [place] must abide by [place] law. The hierarchy for surrogate decision making [...] (i) The agent with financial power of regulatory attorney or a conservator appointed in accordance with [...] Current DME: none Home Address confirmed as: [address] ([place] [phone] Social & Family Supports: All names listed below confirmed with patient as current and correct Extended Emergency Contact Information Primary Emergency Contact: Phillip Sandoval Address: [address] [place] [id number] [facility] Mobile Relation: Spouse Current Care Provided by: [...] at this time Health/Prescription Coverage: Primary Insurance: MVP Payor: MVP / Plan: MVP [place] / Product Type: *No Product type* / Secondary Insurance: N/A ; Prescription Coverage: Yes Preferred Pharmacy: [facility] - [place], [place] - [address] [address] [facility] [place] - [place] [address] [place] [address] [place] [address] [facility] - [place], [place] - [address] [facility] [address] [address] [address] - [place], [place] - [address] [facility] [address] [facility] [address] [place] Status: Patient is a : No Primary Care Provider confirmed: Trinh Coates MD [phone] Patient/Caregiver Goals of Treatment: return home when medically ready for discharge. Potential Needs for Transition of Care: none Agency Referrals: Not Applicable Transportation: no concerns Transportation Anticipated: family or friend will provide Concerns to be Addressed: denies needs/concerns at this time Assessment: Patient is admitted to neurosurgery service for flow diverting stent placement via [employer]. Plan: patient will have treviño removed, will need to work with PT/OT/HARDNESS INSPECTOR, team is hoping to discharge today. A member of the Care Management team will continue to monitor progress, follow for continuity of care and assist with transition of care planning. Rachna VIGIL RN Phone: [phone] Pager: [phone] documented in this encounter Plan of Treatment Upcoming Encounters Date Type Department Care Team (Late st Contact Info) Description 01/22/2024 10:30 AM EST Appointment Mammography/DXA at [place] [phone] Ladi Mendosa MD [facility] [place] [address] 01/30/2024 11:30 AM EST Office Visit Dermatology at [address] [phone] Nilda Luis MD [facility] [place] [address] 02/15/2024 9:30 AM EST Appointment [place] [phone] [place] [address] documented as of this encounter Procedures Procedure [...] 11:58 AM EDT Perm Occlusion/Embolizat ion, Percut, Clinical Study Manager ([id number]) 07/24/2022 7:37 AM EDT AXEL pipeline documented in this encounter Results * CT Angiogram [place] (11/08/2022 12:15 PM EDT) Anatomical [...] who have questions please contact the health healthcare interpreter that requested your imaging first. ? 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 No evidence for recurrence. Apparent filling defect within the right ICA at the horizontal/cavernous junction which may reflect dissection. Anterior communicating artery complex is normal. Vertebrobasilar system is normal. No central branch occlusion in the [place]. origin left ELECTRONIC ORGAN MECHANIC. 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 No evidence for recurrence. Apparent filling defect within theright ICA at the horizontal/cavernous junction which may reflect dissection.Anterior communicating artery complex is normal. Vertebrobasilar system is normal.No central branch occlusion in the [place]. origin left ELECTRONIC ORGAN MECHANIC. 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 Thank you for letting us participate in the care of this patient. If youare a health care provider and have any questions regarding this report,please contact the number below. For patients who have questions please contactthe health healthcare interpreter that requested your imaging first. Joanna Watts MD IMG CT ORDERABLES * (ABNORMAL) Differential, Automated (07/25/2022 2:21 AM EDT) Neutrophils % 84.0 % [facility] Neutr Abs (ANC) 11.68(H) 1.70 - 6.10 x10(3)/[facility] Lymphocytes % 7.7 % [facility] Lymphocytes Abs 1.1 0.9 - 3.2 x10(3)/[facility]OR[facility] Monocytes % 7.3 % [facility] Monocyte Abs 1.0(H) 0.3 - 0.9 x10(3)/[facility]OR[facility] Eosinophils % 0.0 % [facility] Eosinophils Abs 0.0 0.0 - 0.4 x10(3)/[facility] Basophils % 0.3 % [facility] Basophils Abs 0.0 0.0 - 0.1 x10(3)/[facility]OR[facility] Immature Gran % 0.70 % [facility] Comment: Immature granulocytes(IG's)percentage and absolute count will include metamyelocytes, myelocytes, and promyelocytes. Blood smears from CBCs yielding IG's will be scanned manually for concordance. If this scan disagrees with the automated IG or if promyelocytes are noted, a manual differential will be performed. Nova Gran Abs 0.10(H) 0.00 - 0.04 x10(3)/[facility] LABOR[facility] Blood 07/25/2022 2:21 AM EDT 07/25/2022 2:26 AM EDT Narrative Resulting Agency Comment Spec In Lab Senia CALLES HEMATOLOGY ORDERABLE S [facility] [place] [address] * (ABNORMAL) Hemogram (07/25/2022 2:21 AM EDT) WBC 13.9(H) 4.0 - 9.5 x10(3)/[facility] LABORATORY RBC 3.37(L) 4.00 - 5.21 x10(6)/[facility] LABORATORY Hemoglobin 10.5(L) 11.7 - 15.5 g/dL [facility] Hematocrit 32.0(L) 35.7 - 45.8 % [facility] MCV 95.0(H) 82.6 - 94.4 fL [facility] MCH 31.2 27.1 - 32.0 pg [facility] MCHC 32.8 31.7 - 35.0 g/dL [facility] [facility] [place] 266 145 - 357 x10(3)/[facility] LABORATORY RDWSD 48.1(H) 37.0 - 46.0 [facility] LABORATORY RDWCV 13.8 11.5 - 14.1 % [facility] MPV 9.0 7.6 - 12.9 [facility] LABORATORY nRBC % Auto 0.0 % [facility] nRBC Abs Auto 0.000 0.000 - 0.000 x10(3)/[facility] LABORATORY Blood 07/25/2022 2:21 AM EDT 07/25/2022 2:26 AM EDT Narrative Resulting Agency Comment Spec In Lab Senia CALLES HEMATOLOGY ORDERABLE S [facility] [place] [address] * Phosphorus (07/25/2022 2:21 AM EDT) Phosphorus 2.7 2.5 - 4.5 mg/dL [facility] Blood 07/25/2022 2:21 AM EDT 07/25/2022 2:26 AM EDT Narrative Resulting Agency Comment Spec In Lab Joanna Watts MD CHEMISTRY ORDERABLE S [facility] [place] [address] * Magnesium (07/25/2022 2:21 AM EDT) Magnesium 0.74 0.69 - 1.07 mmol/L [facility] Blood 07/25/2022 2:21 AM EDT 07/25/2022 2:26 AM EDT Narrative Resulting Agency Comment Spec In Lab Joanna Watts MD CHEMISTRY ORDERABLE S Performing Organization Address [facility] Co de Phone Number [facility] [place] [address] * (ABNORMAL) Basic Metabolic Panel (non-fasting) (07/25/2022 2:21 AM EDT) Glucose Lvl 189 65 - 199 mg/dL [facility] Comment:Diabetes: >=200 mg/d L plus symptoms BUN 33(H) 8 - 18 mg/dL [facility] Creatinine 1.46(H) 0.70 - 1.20 mg/dL [facility] Sodium 141 135 - 145 mmol/L [facility] Potassium 4.2 3.5 - 5.0 mmol/L [facility] Comment: Please note: ??Patients with WBC >100,000 may have falsely elevated Potassium levels. ??For accurate Potassium quantification in these patients send serum separator tube (gold top) for subsequent determinations. ??Contact the Clinical Chemistry Laboratory if there are any questions. Chloride 112(H) 98 - 107 mmol/L [facility] CO2 18(L) 22 - 31 mmol/L [facility] Anion Gap 11 5 - 15 mmol/L [facility] Calcium 7.7(L) 8.5 - 10.5 mg/dL [facility] Estimated GFR 41(L) >=60 mL/min/1. 73 m?? [facility] [...] Lab Joanna Watts MD CHEMISTRY ORDERABLE S [facility] [place] [address] * CT Head wo Contrast (Generic) (07/24/2022 [...] who have questions please contact the health healthcare interpreter that requested your imaging first. ? Electronically signed by: Mitch Infante [facility] ([phone]), at 07/24/2022 12:27 PM Narrative 07/24/2022 12:27 PM EDT EXAMINATION: CT [...] patients who have questions please contactthe health healthcare interpreter that requested your imaging first. Electronically signed by: Mitch Infante [facility]([phone]), at 07/24/2022 12:27 PM Joanna Watts MD IMG CT ORDERABLES * POCT Glucose (07/24/2022 11:58 AM EDT) POC Glucose 113 65 - 199 mg/dL [facility] Comment: Supplemental ranges: <140 mg/dL before meals <180 mg/dL all other times of the day Blood 07/24/2022 11:5 8 AM EDT 07/24/2022 11:58 AM EDT Joanna Watts MD POINT [place] [address] documented in this encounter Visit Diagnoses Not on filedocumented in this encounter Admitting Diagnoses Diagnosis Brain [...] PM EDT 25 mcg gabapentin (Neurontin) capsule 600 mg 600 mg, [...] supervision and verbal order., Angio/IR (Intra-Procedure), Routine lidocaine (Lidoderm) 5% patch 1 patch 1 [...] Given 07/25/2022 9:29 AM EDT 100 mg ondansetron (pf) (Zofran) (2 mg/mL) injection 4 mg 4 mg, Intravenous, EVERY 8 HOURS PRN, Starting on Sun07/24/22 at 1230, Until Sun07/25/22 at 1840, Nausea Given 07/24/2022 12:00 PM EDT 4 mg oxyCODONE (Roxicodone) tablet 5 mg 5 mg, [...] on Sun07/24/22 at 1700, Until Discontinued, Routine trimethobenzamide (Tigan) (100 mg/mL) injection 200 [...] Discontinued, DO NOT CRUSH OR OPEN, Routine 2148 (Given - Provider: Addie Palomino RN)2346 (IV Pause - Provider: Morena Shanks RN) exemestane (Aromasin) tablet 25 mg 25 mg, Oral, DAILY, First dose on Sun07/25/22 at 0900, Until Discontinued, DO NOT SPLIT, CRUSH OR OPEN, Routine 928 (Given - Provid er: Enoch [...] Routine 1242 (New Bag - Provider: Usman Barrera RN)1255 (Rate/Dose Change - Provider: Usman Barrear RN)1300 (Rate/Dose Change - Provider: Usman Barrera RN)1310 (Rate/Dose Change - Provider: Usman Barrera RN)1320 (Stopped - Provider: Usman Barrera RN)1600 (Restarted - Provider: Usman Barrera RN)1610 (Rate/Dose Change - Provider: Usman Barrera RN)1700 (Rate/Dose Change - Provider: Usman Barrera [...] Sumi Vela, JENNYFER)1150 (Stopped - Provider: Sumi Vela RN) PRN Medication Order 07/23/2022 07/24/2022 07/25/2022 acetaminophen [...] 1 HOUR PRN, 2 doses, Starting on 07/24/22 at 1156, Until Sun07/25/22 at 1840, Pain, Mild to moderate pain (1-5 out of 10), PACU Recovery, Routine documented in this encounter Care Teams Medical Researcher Relationship Specialty Start Date End Date Trinh Coates MD [facility] [address] [place] [address] PCP - General 01/11/10 documented as of this encounter
--- OUTSIDE RECORDS SUMMARY | 2023-09-07 11:25 | XMS_ITS | Encounter Summary ---
Author Organization [facility]ly [facility] Address [facility] [place] [address] Care Team Providers Care Diagnostic Technologist Name Role Phone Trinh Coates MD Primary Care Provider [phone] Encounter Details Date Type Department Care Team (Late st Contact Info) Description 06/30/2022 Orders Only Dermatology at [facility] [address] [place] [address] Nilda Luis MD [facility] [address] [address] High risk medication use Social History Tobacco [...] as of this encounter Progress Notes * Cristina Gleason LPN - 06/30/2022 3:26 PM EDT Labs per Dr Luis documented in this encounter Plan of Treatment Upcoming Encounters Date Type Department Care Team (Late st Contact Info) Description 01/22/2024 10:30 AM EST Appointment Mammography/[place] [address] Ladi Mendosa MD [facility] DR HEMATOLOGY/ONCOLOGY [place] [id number] 01/30/2024 11:30 AM EST Office Visit Dermatology at [facility] [address] [place] [address] Nilda Luis MD [facility] [address] [address] 02/15/2024 9:30 AM EST [place] [address] [place] [address] documented as of this encounter Results * (ABNORMAL) Basic Metabolic Panel (non-fasting) (07/20/2022 11:44 AM EDT) Glucose Lvl 92 65 - 199 mg/dL [facility] Comment:Diabetes: >=200 mg/d L plus symptoms BUN 36(H) 8 - 18 mg/dL [facility] Creatinine 1.70(H) 0.70 - 1.20 mg/dL [facility] Sodium 140 135 - 145 mmol/L [facility] Potassium 4.8 3.5 - 5.0 mmol/L [facility] Comment: Please note: ??Patients with WBC >100,000 may have falsely elevated Potassium levels. ??For accurate Potassium quantification in these patients send serum separator tube (gold top) for subsequent determinations. ??Contact the Clinical Chemistry Laboratory if there are any questions. Chloride 105 98 - 107 mmol/L [facility] CO2 24 22 - 31 mmol/L [facility] Anion Gap 11 5 - 15 mmol/L [facility] Calcium 9.5 8.5 - 10.5 mg/dL [facility] Estimated GFR 34(L) >=60 mL/min/1. 73 m?? [facility] and symptoms in addition to eGFR. Blood 07/20/2022 11:4 4 AM EDT 07/20/2022 12:04 PM EDT Narrative Resulting Agency Comment Spec In Lab Nilda Luis MD CHEMISTRY ORDERABLE S Performing Organization Address City/State/[facility] Co de Phone Number [facility] [place] [address] documented in this encounter Visit Diagnoses Diagnosis High risk medication use Encounter for long-term (current) use of other medications documented in this encounter Care Teams Diagnostic Technologist Relationship Specialty Start Date End Date Trinh Coates MD [address] [place] [address] PCP - General 01/11/10 documented as of this encounter
--- OUTSIDE RECORDS SUMMARY | 2023-09-07 11:25 | XMS_ITS | Encounter Summary ---
Author Organization Counts Include [facility] [address] Care Team Providers Care Sheet Rock Installer Name Role Phone Trinh Coates MD Primary Care Provider [phone] Encounter Details Date Type Department Care Team (Late st Contact Info) Description 05/22/2022 Telephone [place] [address] [place] [address] Social History Tobacco Use Types Packs/Day Years [...] * Telephone Encounter - Jazmyn Bowen - 05/23/2022 8:42 AM EDT Called pt scheduled for 05/[address] Watts, [place] for time of call. Closing Encounter * Telephone Encounter - Lindsey Gonazlez - 05/22/2022 2:59 PM EDT Patient called in will be responding to Jazmyn's [employer] message through the portal. Please advise. * Telephone Encounter - Jazmyn Bowen - 05/22/2022 2:08 PM EDT LMOM for patient to call back to schedule Appt with Dr. Watts Sent a [employer] message to patient as well regarding scheduling. PSC Scheduling Instructions Provider: Joanna Watts MD Visit Type: OV Appt Note: OV, To Discuss angiogram results Angio 05/19 Imaging appt needed?: None PSC to ask patient Screening Questions? N/A PSC to coordinate same day appt with Radiology? N/A Additional Info Needed: Schedule next in person appt unless pt can get to [place], Dr. Watts is not licensed in [place] so can not do a Telehealth appt. From: Joanna Watts <[email or web address]> Sent: Thursday, May 19, 2022 11:38 AM To: Jazmyn Bowen <[email or web address]> Subject: Fwd: New flow diverter case Can you set this patient up with a virtual visit to discuss questions before the procedure sometimenext week or the following? Thanks! Joanna Watts MD documented in this encounter Plan of Treatment Upcoming Encounters Date Type Department Care Team (Late st Contact Info) Description 01/22/2024 10:30 AM EST Appointment Mammography/[place] [address] Ladi Mendosa MD [facility] HEMATOLOGY/[place] [address] 01/30/2024 11:30 AM EST Office Visit Dermatology at [place] [address] [place] [address] Nilda Luis MD [facility] [address] [address] 02/15/2024 9:30 AM EST Appointment [place] [phone] [place] [address] documented as of this encounter Visit Diagnoses Not on filedocumented in this encounter Care Teams Sheet Rock Installer Relationship Specialty Start Date End Date Trinh Coates MD [facility] [address] [place] [address] PCP - General 01/11/10 documented as of this encounter
--- OUTSIDE RECORDS SUMMARY | 2023-09-07 11:25 | XMS_ITS | Encounter Summary ---
Author Organization [facility] [place] [address] Care Team Providers Care Asset Analyst Name Role Phone Trinh Coates MD Primary Care Provider [phone] Encounter Details Date Type Department Care Team (Late st Contact Info) Description 05/19/2022 Notes [place] [address] Araceli Levi, PH[employer] [place] [address] Social History Tobacco Use Types Packs/Day Years [...] Progress Notes * Araceli Levi APRN - 05/19/2022 4:11 PM EDT NEURORADIOLOGY BRIEF PRE-PROCEDURE NOTE Name: Wendy Sandoval Date of : 1965 Indication: AXEL aneurysm Planned Procedure: Endovascular placement of pipeline stent, Dr. Watts Chief Complaint/HPI: Wendy Sandoval is a 56 y.o. female Has CKD III, followed by nephrology. Needs DAPT (ASA and Plavix) 3 weeks prior. Allergies: Allergies Allergen Reactions ??? Penicillins Thrush ??? Zoloft [Sertraline] PSORIASIS FLARE Medications: Current Outpatient Medications: ??? Stelara 45 mg/0.5 [...] visit. Facility-Administered Medications Ordered in Other Visits: ??? sodium chloride 0.9 % (flush) (BD PosiFlush Normal Saline 0.9) flush 5 mL, 5 mL, Intravenous, BID, Joanna Watts MD ??? sodium chloride 0.9 % (flush) (BD PosiFlush Normal Saline 0.9) flush 5-20 mL, 5-20 mL, Intravenous, Q1 Min PRN, Joanna Watts MD Labs: Creatinine Date Value Ref Range Status 05/19/2022 1.65 (H) 0.70 - 1.20 mg/dL Final Platelets Date Value Ref Range Status 05/19/2022 337 145 - 357 x10(3)/mcL Final Imaging: in edh Assessment: 56 y.o. female referred for above procedure. Plan for femoral access due to tortuosity of radial vessels on diagnostic angiogram. Have asked nephrology for clearance re: anesthesia and contrast dye. Contacted PCP to assist with medication adjustments due to interactions between Plavix and Prozac/Crestor. Labs to be performed day of procedure: Per anesthesia/nephrology Medications to discontinue: Will reduce crestor dose, platelet assay day of procedure. Position: supine Sedation: GA Additional medications for procedure: Lidocaine 1% Consent: day of procedure Araceli Levi APRN 05/19/2022 4:13 PM documented in this encounter Plan of Treatment Upcoming Encounters Date Type Department Care Team (Late st Contact Info) Description 01/22/2024 10:30 AM EST Appointment Mammography/[place] [address] Ladi Mendosa MD [facility] [place]ATOLOG[place] [address] 01/30/2024 11:30 AM EST Office Visit Dermatology at [facility] [address] [place] [address] Nilda Luis MD [facility] [address] [address] 02/15/2024 9:30 AM EST Appointment [place] [address] [place] [address] documented as of this encounter Visit Diagnoses Diagnosis 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
--- OUTSIDE RECORDS SUMMARY | 2023-09-07 11:25 | XMS_ITS | Encounter Summary ---
Author Organization [facility] [place] [address] Care Team Providers Care In Mold Coater Name Role Phone Trinh Coates MD Primary Care Provider [phone] Encounter Details Date Type Department Care Team (Late st Contact Info) Description 05/25/2022 10:40 AM EDT TH Visit (TeleHealth) [place] [address] [place] [address] Right internal carotid artery aneurysm Social History [...] Progress Notes * Joanna Watts MD - 05/25/2022 10:40 AM EDT Cerebrovascular & Neurosurgery Telehealth Note Patient Wendy Sandoval 1965 DATE OF VISIT: 05/25/2022 MODALITY: Telephone REASON FOR VISIT: Problem List Items Addressed This Visit 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 DSA was performed on 05/19/2022 suggestive of intradural component of the aneurysm. Given the strong family history of ru ptured aneurysm, treatment was recommended. SUBJECTIVE: She has been doing well post-angiogram with no concerning symptoms. Site is healing well. PAST MEDICAL HISTORY: Past Medical History: Diagnosis Date ??? Fibrocystic breast determined by biopsy ??? Hyperlipidemia ??? Hypertension ??? Impaired fasting glucose ??? Malignant neoplasm of upper-outer quadrant of left breast in female, estrogen receptor positive03/31/2017 ??? Obstructive sleep apnea on CPAP ??? Proteinuria PAST SURGICAL HISTORY: Past Surgical History: Procedure Laterality Date ??? BREAST BIOPSY Right 11/01 ??? SECTION x 2 ??? HAND SURGERY Right ??? IR DRAIN CHECK/CHANGE/REMOVE 11/20/2017 IR Drain Check/Change/Remove 11/20/2017 Marcos Dey MD [facility] INTERVENTIONL RAD ??? IR MEDIPORT REMOVAL 01/25/2018 IR Mediport Removal 01/25/2018 Scooby Muñoz APRN [facility] INTERVENTIONL RAD ??? PRG EMG, LARYNX N/A 11/02/2015 FACIAL NERVE MONITORING, SETUP LARYNGEAL performed by Valentina Lucas MD at [facility] MAIN OR ??? PRO BREAST RECONSTRUCTION IMMT/DLYD W/TISS BAKERY MACHINE MECHANIC SBSQ EXPANSION Bilateral 04/26/2017 BREAST RECONSTRUCTION, IMMEDIATE OR DELAYED, W/ TISSUE BAKERY MACHINE MECHANIC, INCLUDING SUBSEQUENT EXPANSION (WRVU 18.5) performed by Andre Gimenez MD at [facility] MAIN OR ??? PRO BREAST RECONSTRUCTION W FREE FLAP Bilateral 04/26/2017 @BREAST RECONSTRUCTION W/ FREE FLAP, SUSAN (WRVU 42.58) performed by Andre Gimenez MD at [facility] [place] ??? PRO BREAST RECONSTRUCTION W/LATSMS D/SI FLAP WO PRSTHC IMPL Bilateral 12/12/2017 @BREAST RECONSTRUCTION W/ LAT DORSI FLAP,W/O IMPLANT, SUSAN (WRVU 23.36) performed by Andre Gimenez MD at [facility] MAIN OR ? ? PRO DEBRIDEMENT SUBCUTANEOUS TISSUE 20 SQCM/< 06/22/2017 DEBRIDEMENT SKIN AND SUBCU, BREAST (WRVU 1.01) performed by Andre Gimenez MD at [facility] OR ??? PRO EXPLORE PARATHYROID GLANDS N/A 11/02/2015 PARATHYROIDECTOMY OR EXPLORATION OF PARATHYROID(S) performed by Valentina Lucas MD at [facility] OR ? ? PRO FULL THICK GRFT TRUNK <20 SQCM Bilateral 04/26/2017 FTSG, FREE, DIR CLOSE DONOR SITE, TRUNK, 20 SQ CM OR LESS (WRVU 9.15) performed by Andre Gimenez MD at [facility] OR ??? PRO INCISION OF LYMPH CHANNELS Left 10/18/2018 INCISION & DRAINAGE LYMPHOCELE (WRVU 6.81) performed by Andre Gimenez MD at [facility] OR ??? PRO IV INJ TO TEST BLOOD FLOW IN FLAP/GRAFT Left 10/18/2018 IV INJECTION, AGENT TO TEST VASC FLOW IN FLAP OR GRAFT, ENT (WRVU 1.95) performed by Andre Gimenez MD at [facility] OR ??? PRO MASTECTOMY, SIMPLE, COMPLETE Bilateral 04/26/2017 MASTECTOMY, SIMPLE, COMPLETE-SUSAN (WRVU 15.85) performed by Jolie Menendez MD at [facility] OR ??? PRO PARTIAL REMOVAL OF RIB Bilateral 04/26/2017 EXCISION OF RIB, PARTIAL (WRVU 7.26) performed by Andre Gimenez MD at [facility] OR ??? PRO REMOVE ARMPITS LYMPH NODES COMPLT Left 04/26/2017 LYMPHADENECTOMY, AXILLARY, COMPLETE (WRVU 13.87) performed by Jolie Menendez MD at [facility] OR ??? PRO REPLACE TISSUE BAKERY MACHINE MECHANIC Bilateral 12/12/2017 TISSUE BAKERY MACHINE MECHANIC REPLACEMENT, WITH PERMANENT PROSTHESIS, SUSAN (WRVU 8.01) performed by Andre Gimenez MD at [facility] OR ??? PRO REVISION RECONSTRUCTED BREAST Left 06/22/2017 REVISION OF RECONSTRUCTED BREAST (WRVU 10.41) performed by Andre Gimenez MD at [facility] OR ??? PRO REVISION RECONSTRUCTED BREAST Bilateral 12/12/2017 REVISION OFRECONSTRUCTED BREAST, SUSAN (WRVU 10.41) performed by Andre Gimenez MD at [facility] OR ??? PRO THYMECTOMY, TRANSCERVICAL N/A 11/02/2015 THYMECTOMY, TRANSCERVICAL APPROACH performed by Valentina Lucas MD at [facility] MAIN OR ??? SHOULDER SURGERY Left ??? 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 The aneurysm is small, but I think there is an intradural component and given her family history I think treatment is reasonable. Overall the risk of significant morbidity and mortality with aneurysm treatment procedures, whetheropen or endovascular, is around 5%, including, but not limited to, the risk of bleeding, infection,hemorrhagic or ischemic stroke, access site or surgical site complications, anesthestic or medication related reactions, contrast-related kidney injury. For an aneurysm of this location the specific neurologic functions that would be most at risk would be left sided motor and sensory function, vision, hemibody awareness, and cognitive changes. She will need to be on dual anti-platelet therapy (DAPT) for a minimum of 3-6 months to protect against in-stent thrombosis and stroke. During this time it is important that she avoid high-risk activities like ATV riding or mountain biking that would put her at risk for traumatic bleeding, which would be worse on DAPT than otherwise. We discussed thatkayye would be willing to receive a blood transfusion if it were necessary. The procedure will be done under general anesthesia and we will plan for an overnight stay in the ICU for intensive monitoring post-procedure. Many patients are able to go home post-procedure day 1. We discussed the signs and symptoms of aneurysm rupture including severe, intractable headache, without or without new neurologic deficit. The patient understands to seek emergent help with these or any other concerning neurologic symptoms. PLAN SUMMARY: ??? Plan for flow-diverting stent placement for treatment of AXEL aneurysm. Plan for general anesthesia with femoral access. ??? Start DAPT 21 days prior to procedure I spent a total of 20 minutes in the care of this patient today including review of prior notes, review of prior images, interval history, patient counseling, documentation in the medical record and coordination of care. -- 05/25/2022 10:36 AM Joanna Watts MD Open cerebrovascular and endovascular neurosurgery attending Section of Neurosurgery Department of Surgery [facility] documented in this encounter Plan of Treatment Upcoming Encounters Date Type Department Care Team (Late st Contact Info) Description 01/22/2024 10:30 AM EST Appointment Mammography/[place] [phone] Ladi Mendosa MD [facility] HEMATOLOGY/[place] [address] 01/30/2024 11:30 AM EST Office Visit Dermatology at [address] [address] Nilda Luis MD [facility] DR [address] [place] [address] 02/15/2024 9:30 AM EST [place]ointment [place] [phone] [place] [address] documented as of this encounter Visit Diagnoses Diagnosis 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
--- OUTSIDE RECORDS SUMMARY | 2023-09-07 11:25 | XMS_ITS | Encounter Summary ---
Author Organization [place] [address] Care Team Providers Care Hog Cooler Name Role Phone Trinh Coates MD Primary Care Provider [phone] Reason for Referral * Consultation (Routine) - Closed Specialty Diagnoses / Procedures Referred By Diamante marin Referred To Contact Neurosurgery Diagnoses Family history of brain aneurysm Abnormal finding on MRI of brain Trinh Coates MD [address] [place] [address] [facility] [address] [place] [phone] Referral ID Status Reason Start Date Expiration Date V isits Requested Visits Authorized [id number] Closed Consult, Test & Treat PCP Updated and/or Approved 03/30/2022 03/30/2023 6 6 Encounter Details Date Type Department Care Team (Latest Contact Info) Description 03/30/2022 Transcribe Orders eDH Incoming Referrals [phone] Trinh Coates MD [address] [place] [address] Family history of brain aneurysm; Abnormal finding on MRI of brain Social History Tobacco Use Types Packs/Day Years [...] 01/22/2024 10:30 AM EST Appointment Mammography/DXA at [place] [phone] Ladi Mendosa MD [facility] HEMATOLOGY/[place] [address] 01/30/2024 11:30 AM EST Office Visit Dermatology at [address] [place] [phone] Nilda Luis MD [facility] DR [address] [place] [address] 02/15/2024 9:30 AM EST Appointment [place] [phone] [place] [address] Scheduled Referrals Name Type Priority Associated Diagnoses Order Schedule Referral to Neurosurgery Outpatient Referral Routine Family history of brain aneurysm Abnormal finding on MRI of brain Ordered: 03/30/2022 documented as of this encounter Visit Diagnoses Diagnosis Family history of brain aneurysm Family history of stroke (cerebrovascular) Abnormal finding on MRI of brain Nonspecific (abnormal) findings on radiological and other examination of skull and head documented in this encounter Care Teams Hog Cooler Relationship Specialty Start Date End Date Trinh Coates MD [facility] [address] [place] [address] PCP - General 01/11/10 documented as of this encounter
--- OUTSIDE RECORDS SUMMARY | 2023-09-07 11:25 | XMS_ITS | Encounter Summary ---
Author Organization [facility] [place] [address] Care Team Providers Care Wet Trimmer Name Role Phone Trinh Coates MD Primary Care Provider [phone] Reason for Visit * Reason Comments Specialty Pharmacy Review Encounter Details Date Type Department Care Team (Late st Contact Info) Description 05/02/2022 Specialty [place] [phone] Mike Cavazos, [facility] Social History Tobacco Use Types Packs/Day Years [...] encounter Progress Notes * Mike Cavazos - 05/02/2022 11:59 PM EDT The [facility] has completed a benefits investigation for Wendy Sandoval to review their eligibility to fill at [facility]. Per patient's medication list they are prescribed STELARA 45 MG/0.5 ML and the medication is not able to be filled at the [facility]. At this time insurance mandates this medication must be filled through [facility]. documented in this encounter Plan of Treatment Upcoming Encounters Date Type Department Care Team (Late st Contact Info) Description 01/22/2024 10:30 AM EST Appointment Mammography/DXA at [place] [phone] Ladi Mendosa MD [facility] HEMATOLOGY/[place] [address] 01/30/2024 11:30 AM EST Office Visit Dermatology at [place] [address] [place] [address] Nilda Luis MD [facility] [place] [address] 02/15/2024 9:30 AM EST Appoint[place] [address] [place] [address] documented as of this encounter Visit Diagnoses Not on filedocumented in this encounter Care Teams Wet Trimmer Relationship Specialty Start Date End Date Trinh Coates MD [facility] [address] [place] [address] PCP - General 01/11/10 documented as of this encounter
--- OUTSIDE RECORDS SUMMARY | 2023-09-07 11:25 | XMS_ITS | Encounter Summary ---
Author Organization [facility] [place] [address] Care Team Providers Care Snailer Name Role Phone Trinh Coates MD Primary Care Provider [phone] Encounter Details Date Type Department Care Team (Late st Contact Info) Description 03/28/2022 Ancillary Procedure [place] [phone] Trinh Coates MD [address] [place] [address] [address] [place] [address] Social History Tobacco Use Types Packs/Day Years [...] 01/22/2024 10:30 AM EST Appointment Mammography/[place] [address] Ladi Mendosa MD [facility] HEMATOLOGY/[place] [address] 01/30/2024 11:30 AM EST Office Visit Dermatology at [facility] [address] [place] [address] Nilda Luis MD [facility] [address] L[address] [place] [address] 02/15/2024 9:30 AM EST Appointment [place] [phone] [place] [address] documented as of this encounter Procedures Procedure Name Priority Date/Time Associated Diagnosis Comments FILM LIBRARY STORAGE ONLY MR HEAD Routine 03/28/2022 12:00 AM EST documented in this encounter Results * Film Library- Storage Only MR Head (03/28/2022 12:00 AM EST) Narrative [facility] - 03/30/2022 4:04 PM EST This exam is auto-finalizing. It's purpose is for storage only. Trinh Coates MD [facility] FILM LIBRARY ORD ERABLES [place], [place] documented in this encounter Visit Diagnoses Not on filedocumented in this encounter Care Teams Snailer Relationship Specialty Start Date End Date Trinh Coates MD [facility] [address] [place] [address] PCP - General 01/11/10 documented as of this encounter
--- OUTSIDE RECORDS SUMMARY | 2023-09-07 11:25 | XMS_ITS | Encounter Summary ---
Author Organization [place] [address] Care Team Providers Care Extension Agent Name Role Phone Trinh Coates MD Primary Care Provider [phone] Encounter Details Date Type Department Care Team (Late st Contact Info) Description 07/20/2022 2:00 PM EDT Clinical [place] [phone] Social History Tobacco Use Types Packs/Day Years [...] Sign Reading Time Taken Comments Blood Pressure - - Pulse - - Temperature - - Respiratory Rate - - Oxygen Saturation - - Inhaled Oxygen Concentration - - Weight 75.7 kg (166 lb 12.8 oz) 07/20/2022 1:23 PM EDT Height 152.4 cm (5') 07/20/2022 1:23 PM EDT Body Mass Index 32.58 07/20/2022 1:23 PM EDT documented in this encounter Progress Notes * Annelise Amador RN - 07/20/2022 2:00 PM EDT PAT questionnaire reviewed with patient while in Pre Admission testing. Pre- operative instruction booklet reviewed. Patient verbalizes a good understanding of all information reviewed. Pt stated she had covid 01/11 but was not hospitalized; stated no sx now or in the last 4 weeks PLAN: Testing: Blood work done at [facility] Special medication instructions: no losartan, no spironolactone, no vitamins suppliments or herbals, pt was told she could keep taking her plavix per md Procedure date: 07/24/22 Mac DUENAS Penicillin Allergy Risk Assessment 07/20/2022: Moderate Risk Reaction. Patient referred to allergy clinic for pre-op testing. 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 documented in this encounter Plan of Treatment Upcoming Encounters Date Type Department Care Team (Late st Contact Info) Description 01/22/2024 10:30 AM EST Appointment Mammography/[place] [phone] Ladi Mendosa MD [facility] DR HEMATOLOGY/[place] [address] 01/30/2024 11:30 AM EST Office Visit Dermatology at [address] [phone] Nilda Luis MD [facility] [address] [place] [address] 02/15/2024 9:30 AM EST Appointment [place] [phone] [place] [address] documented as of this encounter Visit Diagnoses Not on filedocumented in this encounter Care Teams Extension Agent Relationship Specialty Start Date End Date Trinh Coates MD [address] [place] [address] PCP - General 01/11/10 documented as of this encounter
--- OUTSIDE RECORDS SUMMARY | 2023-09-07 11:25 | XMS_ITS | Encounter Summary ---
Author Organization [facility] Address [facility] [place] [address] Care Team Providers Care Security Attendant Name Role Phone Trinh Coates MD Primary Care Provider [phone] Encounter Details Date Type Department Care Team (Late st Contact Info) Description 11/15/2021 11:30 AM EDT Office Visit H[place] [address] Ladi Mendosa MD [facility] HEMATOLOGY/[place] [address] Malignant neoplasm of upper-outer quadrant of left [...] Sign Reading Time Taken Comments Blood Pressure 129/80 11/15/2021 11:36 AM EDT Pulse 65 11/15/2021 11:36 AM EDT Temperature 37 ??C (98.6 ??F) 11/15/2021 11: 36 AM EDT Respiratory Rate 18 11/15/2021 11:3 6 AM EDT Oxygen Saturation 98% 11/15/2021 11: 36 AM EDT Inhaled Oxygen Concentration - - Weight 77.5 kg (170 lb 13.7 oz) 022 11:36 AM EDT Height 156.3 cm (5' 1.54) 11/15/2021 1 1:36 AM EDT Body Mass Index 31.72 11/15/2021 11:36 AM EDT documented in this encounter Progress Notes * Ladi Mendosa MD - 11/15/2021 11:30 AM EDT Breast cancer Follow up Cc: 56 yo with hx left breast cancer ?? HPI: Diagnosis of??Invasive ductal carcinoma, left breast, in March 2017. 2.0 cm cancer, high-grade. ??ER/DE +++, HER-2/pat negative, 4/18 nodes (1/18 additional nodes with ITC). ??LVI negative. ?? S/P left MRM and SALVADOR recon. ? S/P right prophylactic MRM and deep reconstruction, pathology benign. ?? 07/20/17: Started adjuvant chemotherapy with dose-dense AC. 10/04/17: Transitioned to dose-dense Taxol adjuvant chemo. Completed 11/15/17. ?? Completed radiation therapy at the end of Feb. March 2018 started tamoxifen. Switched to anastrazole, then back to tamoxifen, then back to anastrazole. Switched to Exemestane in Sep 2020 d/t joint aches on anastrozole. ?? PMH: Past Medical History Past Medical History: Diagnosis Date ??? Fibrocystic breast determined by biopsy ? Hyperlipidemia ? Hypertension ? Impaired fasting glucose ? Malignant neoplasm of upper-outer quadrant of left breast in female, estrogen receptor positive03/31/2017 ??? Obstructive sleep apnea on CPAP ? Proteinuria ?? No h/o thromboembolic events LMP was just prior to diagnosis DEXA 01/29/19 normal. ?? Family Hx: There is family h/o breast cancer, as follows: Mother - in her 60's (?DCIS). Now A&W age 76. MAunt - at age 39; developed a contralateral BrCa at age 50. Marky - at age 46. Alive, no testing Patient has a daughter and sister. There is also colon ca on her mother's side. Oct 2017 Genetic testing: The [employer] Common Hereditary Cancers Panel??showed no mutation was detected. ??This means that??Wendy??does??not carry a??mutation??in the genes??detectable by this test.?The following genes were evaluated for sequence changes and exonic deletions/duplications: APC, AMAURY, AXIN2, BARD1, BMPR1A, BRCA1, BRCA2, BRIP1, CDH1, CDKN2A (p14ARF), CDKN2A (l72HBP7m), CHEK2, CTNNA1, DICER1, EPCAM (EPCAM: Deletion/duplication testing only ([id number]), GREM1 (GREM1: Promoter region deletion/duplication testing only.), KIT, MEN1, MLH1, MSH2, MSH3, MSH6, MUTYH, NBN, NF1, PALB2,PDGFRA, PMS2, POLD1, POLE, PTEN, RAD50, RAD51C, RAD51D, SDHB, SDHC, SDHD, SMAD4, SMARCA4, STK11, TP53, TSC1, TSC2, VHL. ??The following genes were evaluated for sequence changes only: HOXB13 (c.251G>A, p.Jup76Ikq variant only), NTHL1 (NTHL1: Deletion/duplication analysis is not offered for this gene (NM_[id number]), and SDHA. ??A variant of uncertain significance in the AMAURY??gene, specifically c. 5727G>A (p.Vct6054Nql), was detected. ? Interval Hx/ROS: Prior switching between endocrine agents was because of issues with wt gain and irritability, whichare not of concern now. She however while on anastrazole began experiencing total body aches, ariadna in hips and feet. She once again did a 'drug holiday' which helped, but within a week of restarting body aches returned. After switch to exemestane in September 2020, the hip pain is gone. Still with sometingling in hands L>R (started with chemo). No hot flashes. Reports no new problems with frequent headaches, double vision, cough, SOB at rest, bleeding, chronic heartburn or diarrhea. ROS otherwise neg. ?? Exam Visit Vitals Last value Range last 8 hrs Temperature Temp: 37 ??C (98.6 ??F) Temp: [37 ??C (98.6 ??F)] Heart Rate Heart Rate: 65 Heart Rate: [65] Blood Pressure BP: 129/80 BP: (129)/(80) Respiratory Rate Resp: 18 Resp: [18] SpO2 SpO2: 98 % SpO2: [98 %] PERRL, EOMi, sclera nonicteric No BLANCA No spine tenderness S/P bilateral mastectomy/recon; no CW nodules Chest clear to A and P CV: RRR, no m/ Abd: No HSM, NT, +BS Ext: no c.c.e Neuro grossly non-focal ? Assessment and Plan: ?? 56 yo woman diagnosed in Mar 2017 with a high-grade, node-positive left breast cancer ER+/DE+/HER2-. She is s/p bilateral mastectomy, completed adjuvant chemo in October 2017. ?? 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 ?? Last Sep switched to aromasin and tolerating this much better, now on year 4 out of 7. Will continue. dexa today with osteopenia, discussed lifestyle changes vs medications , she prefers to focus on lifestyle first, will consider medication in 2 yrs if necessary. F/u 1 yr ?? documented in this encounter Plan of Treatment Upcoming Encounters Date Type Department Care Team (Late st Contact Info) Description 01/22/2024 10:30 AM EST Appointment Mammography/[place] [address] Ladi Mendosa MD [facility] HEMATOLOGY/[place] [address] 01/30/2024 11:30 AM EST Office Visit Dermatology at [facility] [address] [place] [address] Nilda Luis MD [facility] [address] [address] 02/15/2024 9:30 AM EST [place] [phone] [place] [address] documented as of this encounter Visit Diagnoses Diagnosis Malignant neoplasm of upper-outer quadrant of left breast in female, estrogen receptor positive documented in this encounter Care Teams Security Attendant Relationship Specialty Start Date End Date Trinh Coates MD [facility] [address] [facility] 1 [place] [address] PCP - General 01/11/10 documented as of this encounter
--- OUTSIDE RECORDS SUMMARY | 2023-09-07 11:25 | XMS_ITS | Encounter Summary ---
Author Organization [facility] [place] [address] Care Team Providers Care Resourcing Consultant Name Role Phone Trinh Coates MD Primary Care Provider [phone] Reason for Visit * Reason Comments Specialty Pharmacy Review Encounter Details Date Type Department Care Team (Late st Contact Info) Description 2022 Specialty [place] [phone] Mike Cavazos, [facility] Social History Tobacco Use Types Packs/Day Years [...] encounter Progress Notes * Mike Cavazos - 2022 11:59 PM EDT The [facility] has completed a benefits investigation for Wendy Sandoval to review their eligibility to fill at [facility]. Per patient's medication list they are prescribed STELARA 45 MG/0.5 ML and the medication is not able to be filled at the [facility]. At this time insurance mandates this medication must be filled through [facility]. documented in this encounter Plan of Treatment Upcoming Encounters Date Type Department Care Team (Late st Contact Info) Description 01/22/2024 10:30 AM EST Appointment Mammography/DXA at [place] [phone] Ladi Mendosa MD [facility] HEMATOLOGY/[place] [address] 01/30/2024 11:30 AM EST Office Visit Dermatology at [place] [address] [place] [phone] Nilda Luis MD [facility] [address] 02/15/2024 9:30 AM EST Appointment [place] [address] [place] [address] documented as of this encounter Visit Diagnoses Not on filedocumented in this encounter Care Teams Resourcing Consultant Relationship Specialty Start Date End Date Trinh Coates MD [facility] [address] [place] [address] PCP - General 01/11/10 documented as of this encounter
--- OUTSIDE RECORDS SUMMARY | 2023-09-07 11:25 | XMS_ITS | Encounter Summary ---
Author Organization [facility] Address [facility] [place] [address] Care Team Providers Care Roundsman Name Role Phone Trinh Coates MD Primary Care Provider [phone] Reason for Visit * Reason Comments Medication Refill Encounter Details Date Type Department Care Team (Late st Contact Info) Description 06/15/2022 Refill Obstetrics [place] [phone] Josefa Herbert APRN [facility] OBSTETRICS & [place] [address] Social History Tobacco Use Types Packs/Day Years [...] 01/22/2024 10:30 AM EST Appointment Mammography[place] [phone] Ladi Mendosa MD [facility] HEMATOLOGY/[place] [address] 01/30/2024 11:30 AM EST Office Visit Dermatology at [facility] [address] [place] [address] Nilda Luis MD [facility] DR [address] [place] [address] 02/15/2024 9:30 AM EST [place] [phone] [place] [address] documented as of this encounter Visit Diagnoses Not on filedocumented in this encounter Care Teams Roundsman Relationship Specialty Start Date End Date Trinh Coates MD [address] [facility] 1 [place] [address] PCP - General 01/11/10 documented as of this encounter
--- OUTSIDE RECORDS SUMMARY | 2023-09-07 11:25 | XMS_ITS | Encounter Summary ---
Author Organization [facility] Address [facility] [place] [address] Care Team Providers Care Used Car Renovator Name Role Phone Trinh Coates MD Primary Care Provider Encounter Details Date Type Department Care Team (Latest Contact Info) Description 05/17/2022 Travel Social History Tobacco Use Types Packs/Day [...] 01/22/2024 10:30 AM EST Appointment Mammography/[place] [address] Ladi Mendosa MD [facility] HEMATOLOGY/[place] [address] 01/30/2024 11:30 AM EST Office Visit Dermatology at [facility] [address] [place] [phone] Nilda Luis MD [facility] [address] [address] 02/15/2024 9:30 AM EST [place] [address] [place] [address] documented as of this encounter Visit Diagnoses Not on filedocumented in this encounter Care Teams Used Car Renovator Relationship Specialty Start Date End Date Trinh Coates MD [facility] [address] [facility] 1 [place] [address] PCP - General 01/11/10 documented as of this encounter
--- OUTSIDE RECORDS SUMMARY | 2023-09-07 11:25 | XMS_ITS | Encounter Summary ---
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; High risk medication use Social History Tobacco [...] 01/22/2024 10:30 AM EST Appointment Mammography/[place] [address] Ladi Mendosa MD [facility] HEMATOLOGY/[place] [address] 01/30/2024 11:30 AM EST Office Visit Dermatology at [facility] [address] [address] Nilda Luis MD [facility] [address] [place] [address] 02/15/2024 9:30 AM EST [place] [phone] [place] [address] documented as of this encounter Procedures Procedure Name Priority Date/Time Associated Diagnosis Comments HC P2Y12 ANTIPLATELET ASSAY (VERIFYNOW) Routine 07/20/2022 11:44 AM EDT snf current use of antithrombotics/ant iplatelets 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 BASIC METABOLIC PANEL (NON-FASTING) Routine 07/20/2022 11:44 AM EDT High risk medication use documented in this encounter Results * (ABNORMAL) Basic Metabolic Panel (non-fasting) (07/20/2022 11:44 AM EDT) Glucose Lvl 92 65 - 199 mg/dL [facility] Comment:Diabetes: >=200 mg/d L plus symptoms BUN 36(H) 8 - 18 mg/dL [facility] Creatinine 1.70(H) 0.70 - 1.20 mg/dL [facility] Sodium 140 135 - 145 mmol/L [facility] Potassium 4.8 3.5 - 5.0 mmol/L [facility] Comment: Please note: ??Patients with WBC >100,000 may have falsely elevated Potassium levels. ??For accurate Potassium quantification in these patients send serum separator tube (gold top) for subsequent determinations. ??Contact the Clinical Chemistry Laboratory if there are any questions. Chloride 105 98 - 107 mmol/L [facility] CO2 24 22 - 31 mmol/L [facility] Anion Gap 11 5 - 15 mmol/L [facility] Calcium 9.5 8.5 - 10.5 mg/dL [facility] Estimated GFR 34(L) >=60 mL/min/1. 73 m?? [facility] [...] Narrative Resulting Agency Comment Spec In Lab Nilad Luis MD CHEMISTRY ORDERABLE S [facility] [place] [id number] * P2Y12 Antiplatelet ([facility]) (07/20/2022 11:44 AM EDT) [facility] P2Y12 36 PRU [facility] Comment: Test results are reported in P2Y12 reaction units (PRU). PRU is a measure of the degree of inhibition of platelet aggregation in response to P2Y12 inhibitors such as clopidogrel (Plavix), prasugrel (Effient), ticagrelor (Brilinta), ticlopidine (Ticlid). The reference interval for healthy individuals who are not on a P2Y12 inhibitor is 180-376 PRU. PRU values <180 are evidence for a P2Y12 inhibitor effect while on the drug. This test is intended to be used as an indication of drug effect in patients on a P2Y12 inhibitor only in conjunction with a baseline, pre-treatment determination. 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
--- OUTSIDE RECORDS SUMMARY | 2023-09-07 11:25 | XMS_ITS | Encounter Summary ---
Author Organization Formerly [facility] Address [facility] [place] [address] Care Team Providers Care Multi Purpose Machine Operator Name Role Phone Trinh Coates MD Primary Care Provider [phone] Encounter Details Date Type Department Care Team (Latest Contact Info) Description 05/19/2022 Travel Social History Tobacco Use Types Packs/Day [...] 01/22/2024 10:30 AM EST Appointment Mammography/[place] [address] Ladi Mendosa MD [facility] HEMATOLOGY/[place] [address] 01/30/2024 11:30 AM EST Office Visit Dermatology at [facility] [address] [place] [phone] Nilda Luis MD [facility] [address] [place] [address] 02/15/2024 9:30 AM EST [place] [address] [place] [address] documented as of this encounter Visit Diagnoses Not on filedocumented in this encounter Care Teams Multi Purpose Machine Operator Relationship Specialty Start Date End Date Trinh Coates MD [facility] [address] [place] [address] PCP - General 01/11/10 documented as of this encounter
--- OUTSIDE RECORDS SUMMARY | 2023-09-07 11:25 | XMS_ITS | Encounter Summary ---
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 4mm AXEL aneurysm - likely carotid [...] showing 4mm AXEL aneurysm, likely carotid cave ??? History of breast cancer ??? Seroma of breast ??? Bacterial conjunctivitis ??? Hypokalemia ??? Surgery follow-up ??? Abdominal wound dehiscence ??? S/P breast reconstruction, bilateral ??? Malignant neoplasm of upper-outer quadrant of left breast in female, estrogen receptor positive ??? Hyperparathyroidism ??? Obstructive sleep apnea (adult) (pediatric) ??? OA (osteoarthritis) ??? Overweight(278.02) ??? Hypertension ??? Depression HISTORY: Wendy Martinezmoreno Presents for pre-procedure evaluation for endovascular aneurysm treatment on 07/24/22. Plan is for stent assisted embolization of aneurysm. Started DAPT; is taking Prozac, so will check platelet assay today due to potential interaction. Has CKDIII; spoke with neprology with following recommendations made for day of procedure: If using [...] and for 6 to 12 hours postprocedure. Having intermittent wavy lines in R eye visual field, comes and goes. Seen by eye surgeon, no cause found. Review of Systems Constitutional: Negative for chills and fever. HENT: Negative for nosebleeds. Respiratory: Negative for cough and shortness of breath. Cardiovascular: Negative for chest pain, orthopnea and leg swelling. Gastrointestinal: Negative for abdominal pain, blood in stool, diarrhea and vomiting. Neurological: Negative for sensory change, focal weakness and headaches. Endo/Heme/Allergies: Bruises/bleeds easily. PHYSICAL EXAM: No acute distress Awake, Alert, Interactive Pupils equal and reactive Moving all extremities with full strength Gait independent and stable Physical Exam Constitutional: General: She is not in acute distress. Appearance: Normal appearance. HENT: Head: Normocephalic. Nose: Nose normal. Mouth/Throat: Mouth: Mucous membranes are moist. Pharynx: Oropharynx is clear. Eyes: Extraocular Movements: Extraocular movements intact. Pupils: Pupils are equal, round, and reactive to light. Cardiovascular: Rate and Rhythm: Normal rate and regular rhythm. Heart sounds: Normal heart sounds. Pulmonary: Effort: Pulmonary effort is normal. Breath sounds: Normal breath sounds. Abdominal: General: Bowel sounds are normal. Palpations: Abdomen is soft. Neurological: Mental Status: She is alert and oriented to person, place, and time. Cranial Nerves: No cranial nerve deficit. Sensory: No sensory deficit. Motor: No weakness. Coordination: Coordination normal. Gait: Gait normal. IMAGING & OTHER RESULTS: No new imaging. ASSESSMENT/PLAN: Focused H&P without findings of concern. Expected bruising from DAPT without concerning bleeding. Platelet assay within expected parameters. Will proceed as planned with aneurysm stent-assisted embolization procedure. Will communicate with anesthesia provider for pre- and itra-procedural fluid needs for renal protection. Continue DAPT up to and including day of procedure. documented in this encounter Plan of Treatment Upcoming Encounters Date Type Department Care Team (Late st Contact Info) Description 01/22/2024 10:30 AM EST Appointment Mammography/[place] [address] Ladi Mendosa MD [facility] HEMATOLOGY/[place] [address] 01/30/2024 11:30 AM EST Office Visit Dermatology at [facility] [address] [place] [phone] Nilda Luis MD [facility] [place] [address] 02/15/2024 9:30 AM [place] [address] [place] [address] documented as of this encounter Visit Diagnoses Diagnosis 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
--- OUTSIDE RECORDS SUMMARY | 2023-09-07 11:25 | XMS_ITS | Encounter Summary ---
Author Organization [facility] [address] Care Team Providers Care Aviation Neuropsychologist Name Role Phone Trinh Coates MD Primary Care Provider [phone] Encounter Details Date Type Department Care Team (Late st Contact Info) Description 02/22/2022 Telephone [place] [address] Tahira Gray Social History Tobacco Use Types Packs/Day Years [...] encounter Miscellaneous Notes * Telephone Encounter - Tahira Gray - 02/22/2022 11:27 AM EST LM for patient to call and schedule a follow up appointment documented in this encounter Plan of Treatment Upcoming Encounters Date Type Department Care Team (Late st Contact Info) Description 01/22/2024 10:30 AM EST Appointment Mammography[place] [address] Ladi Mendosa MD [facility] HEMATOLOGY/[place] [address] 01/30/2024 11:30 AM EST Office Visit Dermatology at [facility] [address] [place] [address] Nilda Luis MD [facility] [address] [address] 02/15/2024 9:30 AM [place] [address] [place] [address] documented as of this encounter Visit Diagnoses Not on filedocumented in this encounter Care Teams Aviation Neuropsychologist Relationship Specialty Start Date End Date Trinh Coates MD [facility] [address] [place] [address] PCP - General 01/11/10 documented as of this encounter
--- OUTSIDE RECORDS SUMMARY | 2023-09-07 11:25 | XMS_ITS | Encounter Summary ---
Author Organization [facility] [place] [address] Care Team Providers Care Settlement Technician Name Role Phone Trinh Coates MD Primary Care Provider [phone] Reason for Referral * Diagnostic Test (Routine) - Closed Specialty Diagnoses / Procedures Referred By Diamante marin Referred To Contact Radiology Diagnoses Right internal carotid artery aneurysm Procedures IR Arteriogram Cerebral IR Arteriogram Cerebral [place] [address] [place] [address] Referral ID Status Reason Start Date Expiration Date V isits Requested Visits Authorized [id number] Closed Specialty Service Requested 04/07/2022 10/06/2023 1 1 Reason for Visit * Consultation (Routine) - Closed Specialty Diagnoses / Procedures Referred By Diamante marin Referred To Contact Neurosurgery Diagnoses Family history of brain aneurysm Abnormal finding on MRI of brain Trinh Coates MD [address] [place] [address] [facility] Neurosurgery [address] [place] [phone] Referral ID Status Reason Start Date Expiration Date V isits Requested Visits Authorized [id number] Closed Consult, Test & Treat PCP Updated and/or Approved 03/30/2022 03/30/2023 6 6 Encounter Details Date Type Department Care Team (Late st Contact Info) Description 04/07/2022 11:20 AM EST Office [place] [address] Araceli Levi, CUT OFF SAW OPERATOR PIPE BLANKS [facility] [place] [address] Right internal carotid artery aneurysm Social History [...] Sign Reading Time Taken Comments Blood Pressure 130/86 04/07/2022 11:04 AM EST Pulse 63 04/07/2022 11:04 AM EST Temperature 36.6 ??C (97.8 ??F) 04/07/2022 11:[address] Respiratory Rate 18 04/07/2022 11:04 AM EST Oxygen Saturation 98% 04/07/2022 11:04 AM EST Inhaled Oxygen Concentration - - Weight 79.4 kg (175 lb) 04/07/2022 11:04 AM EST Height 152.4 cm (5') 04/07/2022 11:04 AM EST Body Mass Index 34.18 04/07/2022 11:04 AM EST documented in this encounter Progress Notes * Araceli Levi, CUT OFF SAW OPERATOR PIPE BLANKS - 04/07/2022 11:20 AM EST Ms. Sandoval is a 56 y.o. female who was found to have cerebral aneurysm on workup for family history of aneurysm. Accompanied by her spouse, Phillip. Family history of cerebral aneurysm. Father from anuerysmal SAH. Mother from aneurysmal SAH from giant aneurysm, here at [facility] 12/2021. Grandparents also had cerebral aneurysm hemorrhage. Had screening MRA showing AXEL with 2mm outpouching suggestive of aneurysm Nonsmoker. Takes medication for HTN, recently has been normotensive. PAST MEDICAL HISTORY: Past Medical History: Diagnosis [...] IR Drain Check/Change/Remove 11/20/2017 Marcos Dey MD [facility] INTERVENTIONL RAD ??? IR MEDIPORT REMOVAL 01/25/2018 IR Mediport Removal 01/25/2018 Scooby Muñoz APRN [facility] INTERVENTIONL RAD ??? PRG EMG, LARYNX N/A 11/02/2015 FACIAL NERVE MONITORING, SETUP LARYNGEAL performed by Valentina Lucas MD at [facility] OR ??? PRO BREAST RECONSTRUCTION IMMT/DLYD W/TISS SEAM STAYER SBSQ EXPANSION Bilateral 04/26/2017 BREAST RECONSTRUCTION, IMMEDIATE OR DELAYED, W/ TISSUE SEAM STAYER, INCLUDING SUBSEQUENT EXPANSION (WRVU 18.5) performed by Andre Gimenez MD at [facility] OR ??? PRO BREAST RECONSTRUCTION W FREE FLAP Bilateral 04/26/2017 @BREAST RECONSTRUCTION W/ FREE FLAP, SUSAN (WRVU 42.58) [facility] ??? PRO BREAST RECONSTRUCTION W/LATSMS D/SI FLAP WO PRSTHC IMPL Bilateral 12/12/2017 @BREAST RECONSTRUCTION W/ LAT DORSI FLAP,W/O IMPLANT, SUSAN (WRVU 23.36) performed by Andre Gimenez MD at [facility] OR ? ? PRO DEBRIDEMENT SUBCUTANEOUS TISSUE 20 SQCM/< 06/22/2017 DEBRIDEMENT SKIN AND SUBCU, BREAST (WRVU 1.01) performed by Andre Gimenez MD at [facility] OR ??? PRO EXPLORE PARATHYROID GLANDS N/A 11/02/2015 PARATHYROIDECTOMY OR EXPLORATION OF PARATHYROID(S) performed by Valentina Lucas MD at [facility] OR ? ? PRO FULL THICK GRFT TRUNK <20 SQCM Bilateral 04/26/2017 FTSG, FREE, DIR CLOSE DONOR SITE, TRUNK, 20 SQ CM OR LESS (WRVU 9.15) performed by Andre Gimenez MD at [facility] OR ??? PRO INCISION OF LYMPH CHANNELS Left 10/18/2018 INCISION & DRAINAGE LYMPHOCELE (WRVU 6.81) performed by Andre Gimenez MD at [facility] OR ??? PRO IV INJ TO TEST BLOOD FLOW IN FLAP/GRAFT Left 10/18/2018 IV INJECTION, AGENT TO TEST VASC FLOW IN FLAP OR GRAFT, ENT (WRVU 1.95) performed by Andre Gimenez MD at [facility] OR ??? PRO MASTECTOMY, SIMPLE, COMPLETE Bilateral 04/26/2017 MASTECTOMY, SIMPLE, COMPLETE-SUSAN (WRVU 15.85) performed by Jolie Menendez MD at [facility] OR ??? PRO PARTIAL REMOVAL OF RIB Bilateral 04/26/2017 EXCISION OF RIB, PARTIAL (WRVU 7.26) performed by Andre Gimenez MD at [facility] OR ??? PRO REMOVE ARMPITS LYMPH NODES COMPLT Left 04/26/2017 LYMPHADENECTOMY, AXILLARY, COMPLETE (WRVU 13.87) performed by Jolie Menendez MD at [facility] OR ??? PRO REPLACE TISSUE SEAM STAYER Bilateral 12/12/2017 TISSUE SEAM STAYER REPLACEMENT, WITH PERMANENT PROSTHESIS, SUSAN (WRVU 8.01) performed by Andre Gimenez MD at [facility] OR ??? PRO REVISION RECONSTRUCTED BREAST Left 06/22/2017 REVISION OF RECONSTRUCTED BREAST (WRVU 10.41) performed by Andre Gimenez MD at [facility] OR ??? PRO REVISION RECONSTRUCTED BREAST Bilateral 12/12/2017 REVISION OFRECONSTRUCTED BREAST, SUSAN (WRVU 10.41) performed by Andre Gimenez MD at [facility] OR ??? PRO THYMECTOMY, TRANSCERVICAL N/A 11/02/2015 THYMECTOMY, TRANSCERVICAL APPROACH performed by Valentina Lucas MD at [facility] OR ??? SHOULDER SURGERY Left ??? UMBILICAL HERNIA REPAIR SOCIAL HISTORY: Social History Tobacco Use ??? Smoking status: Former Types: Cigarettes Quit date: 08/07/1991 Years since quittin.6 ??? Smokeless tobacco: Never Vaping Use ??? Vaping Use: Never used Substance Use Topics ??? Alcohol use: Yes Comment: socially once a month ??? Drug use: No CURRENT MEDICATIONS: ??? exemestane (Aromasin) 25 mg Tablet ??? ustekinumab (Stelara) 45 mg/0.5 mL subcutaneous injection ??? rosuvastatin (Crestor) 10 mg Tablet ??? [...] Tablet ??? fluoxetine (PROZAC) 40 mg capsule ??? clobetasoL (TEMOVATE) 0.05 % Solution ALLERGIES: Allergies Allergen Reactions ??? Penicillins Thrush ??? Zoloft [Sertraline] PSORIASIS FLARE PHYSICAL EXAMINATION: Blood pressure 130/86, pulse 63, temperature 36.6 ??C (97.8 ??F), temperature source Temporal, resp. rate 18, height 152.4 cm (5'), weight 79.4 kg (175 lb), SpO2 98 %. Awake, alert, and in no acute distress Speech: Appropriate and fluent; answers questions appropriately. Cranial Nerves: II-XII grossly intact. Motor: Normal muscle bulk and tone. No pronator drift. Full strength throughout. Gait: Independent and stable. RADIOGRAPHIC STUDIES: MRA head 03/28/22 personally reviewed 2-3mm medially projecting aneurysm of AXEL, just proximal to R ophthalmic artery. IMPRESSION AND PLAN: Ms. Sandoval is a 56 y.o. female presenting with incidental finding of cerebral aneurysm. I reviewedthe imaging studies with the patient and her family Discussed intracranial aneurysms, natural history and treatment options. Discussed risks of hemorrhage based on size, personal risk factors, aneurysm configuration. Appears cavernous location but given proximity to ophthalmic artery may have intradural component. She has a notable family history of aneurysmal SAH, which is understandably concerning to her. We had a lengthy discussion about management options. In our visit today, we discussed the patient's current condition, the natural course history without treatment and various interventional options. Discussed option of CTA v conventional angiogram to determine location as being intra or extradural, advised that if CTA were not definitive, then we would proceed to DSA. She would like to pursue definitive diagnostics, particularly in light of her family history. Will move forward with cerebral angiogram with moderate sedation. * Araceli Levi APRN - 04/07/2022 11:20 AM EST NEURORADIOLOGY BRIEF PRE-PROCEDURE NOTE Name: Wendy Sandoval Date of : 1965 Indication: AXEL aneurysm Planned Procedure: diagnostic cerebral angiogram, Dr. Watts Chief Complaint/HPI: Wendy Sandoval is a 56 y.o. female with recent finding of AXEL aneurysm, unclear whether fully extradural. Due to notable family history of aneurysmal hemorrhage, elected for diagnostic angiogram. She has JACQUELYN and uses CPAP at night, no nocturnal oxygen use. Allergies: Allergies Allergen Reactions ??? Penicillins Thrush ??? Zoloft [Sertraline] PSORIASIS FLARE Medications: Current Outpatient Medications: ??? exemestane (Aromasin) 25 mg Tablet, Take 1 tablet by mouth daily., Disp: 30 tablet, Rfl: 11 ??? ustekinumab (Stelara) 45 mg/0.5 mL subcutaneous injection, MAINTENANCE: INJECT 1 SYRINGE SUBCUTANEOUSLY EVERY 12 WEEKS. REFRIGERATE. DO NOT FREEZE, Disp: 0.5 mL, Rfl: 3 ??? rosuvastatin (Crestor) 10 mg Tablet, TAKE [...] Rfl: ??? fluoxetine (PROZAC) 40 mg capsule, daily., Disp: , Rfl: ??? clobetasoL (TEMOVATE) 0.05 % Solution, Apply topically to scalp once daily as needed. (Patient not taking: Reported on 11/15/2021), Disp: 25 mL, Rfl: 5 Labs: Platelets Date Value Ref Range Status 05/10/2021 318 145 - 357 x10(3)/mcL Final Creatinine Date Value Ref Range Status 05/10/2021 1.47 (H) 0.70 - 1.20 mg/dL Final Imaging: MRA head in [facility]. Assessment: 56 y.o. female with the above history. No contraindication to proceed as planned. Will repeat renal function labs on day of procedure. Supplemental oxygen prn via NC or mask during procedure. Informed consent obtained from patient today in office. Labs to be performed day of procedure: Platelet count, creatinine Medications to discontinue: none Position: supine Sedation: moderate Additional medications for procedure: Lidocaine 1% Consent: obtained Araceli Levi APRN 04/07/2022 1:37 PM documented in this encounter Plan of Treatment Upcoming Encounters Date Type Department Care Team (Late st Contact Info) Description 01/22/2024 10:30 AM EST Appointment Mammography/[place] [address] Ladi Mendosa MD [facility] HEMATOLOGY/[place] [address] 01/30/2024 11:30 AM EST Office Visit Dermatology at [facility] [address] [place] [address] Nilda Luis MD [facility] [place] [address] 02/15/2024 9:30 AM EST App[place]ment [place] [address] Joanna Watts MD [place], [place] [phone] documented as of this encounter Results * [...] symptoms and precautions given. ATTESTATION Signer name: Joanna Watts MD I [...] who have questions please contact the health rental boats caretaker that requested your imaging first. ? Electronically signed by: Joanna Watts MD, [facility] ([phone]), at 06/06/2022 3:20 PM Narrative 06/06/2022 3:20 [...] ??Jan Durbin MD, Interventional Neuroradiology Attending. 2. ??Joanna Watts MD, Interventional Neuroradiology Attending PROCEDURE: Transradial [...] being administered. The above times reflect physician/patient [id number] time. MEDICATIONS: 1% Lidocaine 10 ml SC [...] EQUIPMENT: ?? 1. ??Micropuncture access kit. 2. ??5-Omani, 10 cm radial Glidesheath 3. ??5-Omani Mann II Glidecatheter 4. ??1.5 J Glidewire [...] without difficulty under ultrasound guidance and the 5-Omani, 10 cm radial Glidesheath was placed and [...] intradural component cannot be excluded. Procedure Note Joanna Watts MD - 06/06/2022 PROCEDURE NAME: IR ARTERIOGRAM CEREBRAL CLINICAL HISTORY: Patient is a 56-year-old woman with a strong familyhistory of brain aneurysm with evidence of 2 mm right ICA aneurysm and screeningMRA. Diagnostic cerebral angiography is indicated for further characterizationof potential treatment planning. COMPARISON: MR head March 28, 2022 OPERATING PHYSICIANS: 1. Jan Durbin MD, Interventional Neuroradiology Attending. 2. Joanna Watts MD, Interventional Neuroradiology Attending PROCEDURE: Transradial [...] wasbeing administered. The above times reflect physician/patient [id number]. MEDICATIONS: 1% Lidocaine 10 ml SC Fentanyl [...] None. EQUIPMENT: 1. Micropuncture access kit. 2. 5-Omani, 10 cm radial Glidesheath 3. 5-Omani Mnan II Glidecatheter 4. 1.5 J Glidewire 5. [...] without difficulty under ultrasound guidance and the 5-Omani, 10 cmradial Glidesheath was placed and flushed. [...] symptoms and precautions given. ATTESTATION Signer name: Joanna Watts MD I [...] patients who have questions please contactthe health rental boats caretaker that requested your imaging first. Electronically signed by: Joanna Watts MD, [facility]([phone]), at 06/06/2022 3:20 PM Araceli L Levi CUT OFF SAW OPERATOR PIPE BLANKS IMG IR ORDERABLES * Platelet count (05/19/2022 6:45 AM EDT) Platelets 337 145 - 357 x10(3)/mc L [facility] Plat Immature % 1.0 0.0 - 7.4 % [facility] Comment: Limitation of the Immature Platelet Fraction (IPF)-May be less reliable when the platelet count is less than 88u806/uL due to statistical imprecision. The IPF value [...] in a decreased state of production. References: [employer] The Clinical Value of the Immature Platelet Fraction (IPF) in Cell Recovery Document Number [id number] 07/2010 [employer] The Role of the Immature Platelet Fraction (IPF) in the Differential Diagnosis of Thrombocytopenia, Document [id number] V05 P05 Blood 05/19/2022 6:45 AM EDT 05/19/2022 6:56 AM EDT Narrative Resulting Agency Comment Spec In Lab Araceli Levi AARTI HEMATOLOGY ORDERABLE S [facility] [place] [address] * (ABNORMAL) Creatinine (05/19/2022 6:45 AM EDT) Pathologist [facility] Creatinine 1.65(H) 0.70 - 1.20 mg/dL [facility] Estimated GFR 36(L) >=60 mL/min/1. 73 m?? [facility] [...] In Lab Araceli Levi APRN CHEMISTRY ORDERABLES [facility] [place] [address] documented in this encounter Visit Diagnoses Diagnosis Right internal carotid artery aneurysm Cerebral aneurysm, nonruptured Right internal carotid artery aneurysm Cerebral aneurysm, nonruptured documented in this encounter Care Teams Settlement Technician Relationship Specialty Start Date End Date Trinh Coates MD [address] [place] [address] PCP - General 01/11/10 documented as of this encounter
--- OUTSIDE RECORDS SUMMARY | 2023-09-07 11:26 | XMS_ITS | Encounter Summary ---
Author Organization Pending [facility] To [facility] Address [facility] [place] [address] Care Team Providers Care Song And Dance Performer Name Role Phone Trinh Coates MD Primary Care Provider [phone] Reason for Visit * Reason Comments Follow-up Urgent visit Encounter Details Date Type Department Care Team (Late st Contact Info) Description 10/04/2021 3:40 PM EDT Office Visit Obstetrics [place] [address] [facility] [place] [address] Labial lesion Social History Tobacco Use Types Packs/Day Years [...] Sign Reading Time Taken Comments Blood Pressure 128/73 10/04/2021 3:41 PM EDT Pulse 66 10/04/2021 3:41 PM EDT Temperature 37.1 ??C (98.7 ??F) 10/04/2021 3:41 PM ED T Respiratory Rate 18 10/04/2021 3:41 PM EDT Oxygen Saturation 99% 10/04/2021 3:41 PM EDT Inhaled Oxygen Concentration - - Weight - - Height - - Body Mass Index - - documented in this encounter Progress Notes * Yola Gallardo LNA - 10/04/2021 3:40 PM EDT Examination chaperoned by AMELIA Downey. * Abby Phoenix CNM - 10/04/2021 3:40 PM EDT CC: Subjective: Wendy aSndoval is a 56 y.o. female who is here today with right labial lesion. She noticed this on last week. No LMP recorded. Patient is postmenopausal.. Just had poison ijeoma possibly on her legs and arms- prednisone took care of it. Finished course of prednisone 09/27/21. Then noticed labial lesion on 09/29/21. labial lesion that is causing pain and itching and burning. Wendy no currently sexually active using postmenopause for contraception. She has been with her 30+ yrs. Patient Active Problem List Diagnosis Date Noted ??? History of breast cancer 12/12/2017 ??? Seroma of breast 09/13/2017 ??? Bacterial conjunctivitis 09/07/2017 ??? Hypokalemia 07/20/2017 ??? Surgery follow-up 05/10/2017 ??? Abdominal wound dehiscence 05/10/2017 ??? S/P breast reconstruction, bilateral 04/27/2017 ??? Malignant neoplasm of upper-outer quadrant of left breast in female, estrogen receptor snnwgjco16/10/2018 ??? Hyperparathyroidism 11/02/2015 ??? Obstructive sleep apnea (adult) (pediatric) 11/12/2014 ??? OA (osteoarthritis) 11/12/2014 ??? Overweight(278.02) 11/12/2014 ??? Hypertension 03/15/2013 ??? Depression 03/15/2013 Past Medical History: Diagnosis Date ??? Fibrocystic [...] LARYNGEAL performed by Valentina Lucas MD at [facility] OR ??? PRO BREAST RECONSTRUCTION IMMT/DLYD W/TISS PRINT BUYER SBSQ EXPANSION Bilateral 04/26/2017 BREAST RECONSTRUCTION, IMMEDIATE OR DELAYED, W/ TISSUE PRINT BUYER, INCLUDING SUBSEQUENT EXPANSION (WRVU 18.5) performed by Andre Gimenez MD at [facility] OR ??? PRO BREAST RECONSTRUCTION W FREE FLAP Bilateral 04/26/2017 @BREAST RECONSTRUCTION W/ FREE FLAP, SUSAN (WRVU 42.58) performed by Andre Gimenez MD at [facility] ??? PRO BREAST RECONSTRUCTION W/LATSMS D/SI FLAP WO PRSTHC IMPL Bilateral 12/12/2017 @BREAST RECONSTRUCTION W/ LAT DORSI FLAP,W/O IMPLANT, SUSAN (WRVU 23.36) performed by Andre Gimenez MD at [facility] OR ? ? PRO DEBRIDEMENT SUBCUTANEOUS TISSUE 20 SQCM/< 06/22/2017 DEBRIDEMENT SKIN AND SUBCU, BREAST (WRVU 1.01) performed by Andre Gimenez MD at [facility] ??? PRO EXPLORE PARATHYROID GLANDS N/A 11/02/2015 PARATHYROIDECTOMY OR EXPLORATION OF PARATHYROID(S) performed by Valentina Lucas MD at [facility] ? ? PRO FULL THICK GRFT TRUNK <20 SQCM Bilateral 04/26/2017 FTSG, FREE, DIR CLOSE DONOR SITE, TRUNK, 20 SQ CM OR LESS (WRVU 9.15) performed by Andre Gimenez MD at [facility] ??? PRO INCISION OF LYMPH CHANNELS Left 10/18/2018 INCISION & DRAINAGE LYMPHOCELE (WRVU 6.81) performed by Andre Gimenez MD at [facility] ??? PRO IV INJ TO TEST BLOOD FLOW IN FLAP/GRAFT Left 10/18/2018 IV INJECTION, AGENT TO TEST VASC FLOW IN FLAP OR GRAFT, ENT (WRVU 1.95) performed by Andre Gimenez MD at [facility] ??? PRO MASTECTOMY, SIMPLE, COMPLETE Bilateral 04/26/2017 MASTECTOMY, SIMPLE, COMPLETE-SUSAN (WRVU 15.85) performed by Jolie Menendez MD at [facility] ??? PRO PARTIAL REMOVAL OF RIB Bilateral 04/26/2017 EXCISION OF RIB, PARTIAL (WRVU 7.26) performed by Andre Gimenez MD at [facility] ??? PRO REMOVE ARMPITS LYMPH NODES COMPLT Left 04/26/2017 LYMPHADENECTOMY, AXILLARY, COMPLETE (WRVU 13.87) performed by Jolie Menendez MD at [facility] ??? PRO REPLACE TISSUE PRINT BUYER Bilateral 12/12/2017 TISSUE PRINT BUYER REPLACEMENT, WITH PERMANENT PROSTHESIS, SUSAN (WRVU 8.01) performed by Andre Gimenez MD at [facility] ??? PRO REVISION RECONSTRUCTED BREAST Left 06/22/2017 REVISION OF RECONSTRUCTED BREAST (WRVU 10.41) performed by Andre Gimenez MD at [facility] ??? PRO REVISION RECONSTRUCTED BREAST Bilateral 12/12/2017 REVISION OFRECONSTRUCTED BREAST, SUSAN (WRVU 10.41) performed by Andre Gimenez MD at [facility] ??? PRO THYMECTOMY, TRANSCERVICAL N/A 11/02/2015 THYMECTOMY, TRANSCERVICAL APPROACH performed by Valentina Lucas MD at [facility] ??? SHOULDER SURGERY Left ??? UMBILICAL HERNIA REPAIR Outpatient Medications Marked as Taking for the 10/04/21 encounter (Office Visit) with Abby Phoenix CNM Medication Sig Dispense Refill ??? ustekinumab (Stelara) 45 mg/0.5 mL subcutaneous injection MAINTENANCE: INJECT 1 SYRINGE SUBCUTANEOUSLY EVERY 12 WEEKS. REFRIGERATE. DO NOT FREEZE 0.5 mL 3 ??? exemestane (Aromasin) 25 mg Tablet Take 1 tablet by mouth daily. 30 tablet 11 ??? rosuvastatin (Crestor) 10 mg Tablet TAKE 1 TABLET BY MOUTH DAILY AT BEDTIME ??? clobetasoL (TEMOVATE) 0.05 % Solution Apply topically to scalp once daily as needed. 25 mL 5 ??? clobetasoL (TEMOVATE) 0.05 % Cream Apply to affected areas on knees, elbows and hands twice daily for two week cycles as needed. 60 g 3 ??? ibuprofen (ADVIL;MOTRIN) 200 mg Tablet Take 200 mg by mouth every 6 hours as needed for Pain. ??? dilTIAZem (CARDIZEM CD) 240 mg Capsule, Sust. Release 24 hr Take 240 mg by mouth daily. ??? triamcinolone (KENALOG) 0.1 % Ointment Apply 1 each topically 2 times daily. To affected areas on trunk 454 g 1 ??? spironolactone (ALDACTONE) 25 mg Tablet Take 1 tablet by mouth daily. 90 tablet 3 ??? gabapentin (NEURONTIN) 300 mg Capsule Take 1 capsule by mouth 3 times daily. 90 capsule 3 ??? losartan (COZAAR) 100 mg Tablet take 1 tablet by mouth once daily 0 ??? cholecalciferol, Vitamin D3, 125 mcg (5,000 unit) Tablet Take by mouth. ??? acetaminophen (TYLENOL) 325 mg Tablet Take 2 tablets by mouth every 4 hours as needed for Pain. ??? ferrous gluconate 324 mg (37.5 mg iron) Tablet Take 324 mg by mouth daily. ??? fluoxetine (PROZAC) 40 mg capsule daily. Allergies Allergen Reactions ??? Zoloft [Sertraline] PSORIASIS FLARE ROS: See HPI, all others negative. Objective: BP 128/73 Pulse 66 Temp 37.1 ??C (98.7 ??F) Resp 18 SpO2 99% General: Appears healthy and well nourished. No apparent distress. Pelvic Exam: Urethra: No lesions. Normal opening. Vulva: No lesions. Normal hair distribution. Right labia with a 1cm x 1cm crusted over lesion and a1 white papule about the size of a pin head. Optical Technician present Assessment/Plan: Wendy is a 56 yo here for a labial lesion that is causing pain and itching and burning. 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 Of note she was recently treated forpoison ijeoma but that has since resolved. - F/u as needed. Abby Phoenix CNM documented in this encounter Plan of Treatment Upcoming Encounters Date Type Department Care Team (Late st Contact Info) Description 01/22/2024 10:30 AM EST Appointment Mammography/[place] [address] Ladi Mendosa MD [facility] HEMATOLOGY/[place] [address] 01/30/2024 11:30 AM EST Office Visit Dermatology at [address] [place] [phone] Nilda Luis MD [facility] [place] [address] 02/15/2024 9:30 AM EST Appointment [place] [address] Joanna Watts MD [place], [place] [id number] documented as of this encounter Procedures Procedure Name Priority Date/Time Associated Diagnosis Comments HC HERPES SIMPLEX VIRUS 1/2 BY PCR Routine 10/04/2021 3:40 PM EDT Labial lesion documented in this encounter Results * (ABNORMAL) HSV 1 and 2 PCR (10/04/2021 3:40 PM EDT) HSV-1 PCR Not Detected Not Detected [facility] HSV-2 PCR Detected(A) Not Detected [facility] HSV Source Labial [facility] Comment: The only FDA approved specimen types for this assay are CSF and genital lesions. Labial 10/04/2021 3:40 PM EDT 10/04/2021 5:22 PM EDT Comment:Specimen Type:->Labi al Narrative Resulting Agency Comment Spec In Lab Abby Phoenix CNM MICROBIOLOGY - G ENERAL ORDERABLES [facility] [place] [address] documented in this encounter Visit Diagnoses Diagnosis Labial lesion Other specified noninflammatory disorder of vulva and perineum documented in this encounter Care Teams Song And Dance Performer Relationship Specialty Start Date End Date Trinh Coates MD [address] [place] [address] PCP - General 01/11/10 documented as of this encounter
--- OUTSIDE RECORDS SUMMARY | 2023-09-07 11:26 | XMS_ITS | Encounter Summary ---
Author Organization Formerly [facility] Address [facility] [place] [address] Care Team Providers Care Expense Clerk Name Role Phone Trinh Coates MD Primary Care Provider [phone] Encounter Details Date Type Department Care Team (Late st Contact Info) Description 01/14/2020 Notes [place] [address] Antwon Dowell MD [facility] [address] Social History Tobacco Use Types Packs/Day Years [...] as of this encounter Progress Notes * Anna Fitzgerald RN - 01/14/2020 4:41 PM EST Antwon Dowell MD Sent: SunJanuary 13, 2020 ??4:57 PM To: Anna Fitzgerald RN ?? Message Anna can you please send lab work ??to [facility]. Faxed this am. documented in this encounter Plan of Treatment Upcoming Encounters Date Type Department Care Team (Late st Contact Info) Description 01/22/2024 10:30 AM EST Appointment Mammography/[place] [address] Ladi Mendosa MD [facility] HEMATOLOGY/[place] [address] 01/30/2024 11:30 AM EST Office Visit Dermatology at [facility] [address] [place] [phone] Nilda Luis MD [facility] [place] [address] 02/15/2024 9:30 AM EST Appointment [place] [address] [place] [address] documented as of this encounter Visit Diagnoses Not on filedocumented in this encounter Care Teams Expense Clerk Relationship Specialty Start Date End Date Trinh Coates MD [facility] [address] [place] [address] PCP - General 01/11/10 documented as of this encounter
--- OUTSIDE RECORDS SUMMARY | 2023-09-07 11:26 | XMS_ITS | Encounter Summary ---
Author Organization [facility] [place] [address] Care Team Providers Care Drainage Engineer Name Role Phone Trinh Coates MD Primary Care Provider [phone] Encounter Details Date Type Department Care Team (Late st Contact Info) Description 10/07/2021 Orders Only Obstetrics [place] [phone] [address] [address] [facility] [place] [address] Social History Tobacco Use Types Packs/Day Years [...] 01/22/2024 10:30 AM EST Appointment Mammography/[place] [address] Ladi Mendosa MD [facility] HEMATOLOGY/[place] [address] 01/30/2024 11:30 AM EST Office Visit Dermatology at [facility] [address] [place] [address] Nilda Luis MD [facility] [address] [place] [address] 02/15/2024 9:30 AM EST Appointment [place] [phone] [place] [address] documented as of this encounter Visit Diagnoses Not on filedocumented in this encounter Care Teams Drainage Engineer Relationship Specialty Start Date End Date Trinh Coates MD [facility] [address] [place] [address] PCP - General 01/11/10 documented as of this encounter
--- OUTSIDE RECORDS SUMMARY | 2023-09-07 11:26 | XMS_ITS | Encounter Summary ---
[place] [address] Care Team Providers Care Brim Pouncing Machine Operator Name Role Phone Trinh Coates MD Primary Care Provider [phone] Reason for Visit * Reason Onset Date Comments Follow-up 09/03/2020 restart Encounter Details Date Type Department Care Team (Late st Contact Info) Description 09/03/2020 Telephone Hematology [place] [phone] Arpita Ordonez RN Follow-up (restart ) Social History Tobacco Use Types Packs/Day Years [...] encounter Miscellaneous Notes * Telephone Encounter - Arpita Ordonez RN - 09/03/2020 9:36 AM EDT Images from the original note were not included. Message received from typing secretary: Kim Sanchez [facility] T[facility] Breast Good morning, Wendy called to give an update on how she is doing since re-starting her Anastrazole. Could you please give her a call at [phone]? Doing okay back on anastrozole. Total body ache that is waking her up. It is in her muscles and canhardly go up a flight of stairs without stopping with pain. End of day is worse. Appointment with rail specialist is in September. . Will stop the anastrozole Message sent to provider to follow up. Plan of care per: Ladi Mendosa MD Andrews, Patricia A, RN Agree with stopping AI, she should check back in in 4-6 wks. ??MyDh message sent to patient Message sent to schedulers for a f/u appointment in 4-6 weeks with provider. documented in this encounter Plan of Treatment Upcoming Encounters Date Type Department Care Team (Late st Contact Info) Description 01/22/2024 10:30 AM EST Appointment Mammography/DXA at [place] [phone] [facility] DR HEMATOLOGY/[place] [address] 01/30/2024 11:30 AM EST Office Visit Dermatology at [address] [phone] Nilda Luis MD [facility] [address] [place] [address] 02/15/2024 9:30 AM EST [place]oint[place] [phone] [place] [address] documented as of this encounter Visit Diagnoses Not on filedocumented in this encounter Care Teams Brim Pouncing Machine Operator Relationship Specialty Start Date End Date Trinh Coates MD [address] [place] [address] PCP - General 01/11/10 documented as of this encounter
--- OUTSIDE RECORDS SUMMARY | 2023-09-07 11:26 | XMS_ITS | Encounter Summary ---
Author Organization [facility] Address [facility] [place] [address] Care Team Providers Care Mold Maker Plaster Name Role Phone Trinh Coates MD Primary Care Provider Encounter Details Date Type Department Care Team (Late st Contact Info) Description 01/20/2021 1:00 PM EST Office Visit Radiation Oncology at [address] [phone] Tahira Cardenas, [facility] [place] [address] Hormone receptor positive malignant neoplasm [...] Sign Reading Time Taken Comments Blood Pressure 147/84 01/20/2021 1:05 PM EST Pulse 76 01/20/2021 1:05 PM EST Temperature 37 ??C (98.6 ??F) 01/20/2021 1:05 PM EST Respiratory Rate 18 01/20/2021 1:05 PM EST Oxygen Saturation 97% 01/20/2021 1:05 PM EST Inhaled Oxygen Concentration - - Weight 82.6 kg (182 lb 3.2 oz) 01/20/2021 1:05 P M EST Height 153.1 cm (5' 0.28) 01/20/2021 1:05 PM ES T Body Mass Index 35.26 01/20/2021 1:05 PM EST documented in this encounter Progress Notes * RonaldTahira AARTI Lanier - 01/20/2021 1:00 PM ESTSummary: 55 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 completed xrt (03/11/18). s/p B skin sparing mast . Arreaga and Arimedex switched [facility] [place] [address] Phone: RADIATION ONCOLOGY FOLLOW UP NOTE Date of visit: 01/20/2021 Patient Wendy Sandoval 1965 PCP: Trinh Coates MD Radiation oncologist: Emily Choi MD Chief Complaint: scheduled FUV for breast cancer, post radiation therapy Time since completed RT: completed xrt (03/11/18) Current treatment: Surveillance and med onc for hormone management . Exemestane now (x2 months) andnot the tamoxifen or arimidex. 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 Adjuvant chemo then given, followed by dredge or barge shore hand exchange for implants. ?? She was taking arreaga, started after xrt completion; switched to arimidex for a while, then back to arreaga, then back to arimidex. At this time she has been switched to exemestane and now on for approximately 2 months she feels she is not having any symptoms or side effects with medication. ?? 10/18/18 lymphovenous bypass L upper ext by Dr. Gimenez. ?? 10/30/18 fu w/A. Azevedo, [facility] [employer], resume PT for lymphedema. ?? 07/09/19 bone scan: Largely symmetric increased activity in shoulders & feet which likely reflects degenerative change; xrays may be obtained for further eval. Increased radiotracer uptake in C spine, xrays of C spine may be obtained for further eval. No definite evidence to suggest osseous met dz. ?? 07/09/19 CT chest: No thoracic met dz. No acute pulmonary process. Cholelithiasis, no biliary ductaldilatation. L nephrolithiasis. ?? 08/05/19 plain xray R shoulder: Degenerative changes. No acute abnlty. ?? 12/12/19 repair of R rotator cuff by Ortho group in [facility]. ?? Subjective: Aches & pains in joints & muscles which makes it difficult for her to walk by end of day. Stiff L neck following recent black fly bites on L neck. L arm lymphedema stable. ?? Interim HPI: Had ACL and meniscus surgery Dec 24 and is doing well. On crutches She has significant lymphedema in L arm and attending [facility]. she will check in with Sheron her lymphedema specialist on this due to use of crutches increasing the lymphedema problem of her left arm. Getting PT also for her ACL/meniscus repair. Wendy feels she is doing very well with her ACL repair. Her mother was recently diagnosed with some form of cancer in her abdomen. Her mother is in her 80sand does not quite understand what the diagnosis is completely she feels that she has a couple of lymph nodes near her pancreas that showed cancer Wendy is going to have her physician in [place] to find out what is going on there she perhaps may send her son out to [place] to help figure out what is going on with her mother. Medications 10/08/20 2020 Medication Sig Taking? exemestane (Aromasin) 25 mg Tablet Take 1 tablet by mouth daily. ustekinumab (Stelara) 45 mg/0.5 mL subcutaneous injection MAINTENANCE: INJECT 1 SYRINGE SUBCUTANEOUSLY EVERY 12 WEEKS. REFRIGERATE. DO NOT FREEZE rosuvastatin (Crestor) 10 mg Tablet TAKE 1 TABLET BY MOUTH DAILY AT BEDTIME clobetasoL (TEMOVATE) 0.05 % Solution Apply topically to scalp once daily as needed. Patient not taking: Reported on 10/07/2020 clobetasoL (TEMOVATE) 0.05 % Cream Apply to affected areas on knees, elbows and hands twice daily for two week cycles as needed. Patient not taking: Reported on 10/07/2020 ibuprofen (ADVIL;MOTRIN) 200 mg Tablet Take 200 mg by mouth every 6 hours as needed for Pain. dilTIAZem (CARDIZEM CD) 240 mg Capsule, Sust. Release 24 hr Take 240 mg by mouth daily. triamcinolone (KENALOG) 0.1 % Ointment Apply 1 each topically 2 times daily. To affected areas on trunk Patient not taking: Reported on 10/07/2020 spironolactone (ALDACTONE) 25 mg Tablet Take 1 tablet by mouth daily. gabapentin (NEURONTIN) 300 mg Capsule Take 1 capsule by mouth 3 times daily. losartan (COZAAR) 100 mg Tablet take 1 tablet by mouth once daily cholecalciferol, Vitamin D3, (VITAMIN D-3) 5,000 unit Tablet Take by mouth. acetaminophen (TYLENOL) 325 mg Tablet Take 2 tablets by mouth every 4 hours as needed for Pain. ferrous gluconate 324 mg (37.5 mg iron) Tablet Take 324 mg by mouth daily. fluoxetine (PROZAC) 40 mg capsule daily. Allergies Allergen Reactions ??? Zoloft [Sertraline] PSORIASIS FLARE Past Medical History: Diagnosis Date ??? Fibrocystic [...] IR Drain Check/Change/Remove 11/20/2017 Marcos Dey MD [facility] INTERVENTIONL RAD ??? IR MEDIPORT REMOVAL 01/25/2018 IR Mediport Removal 01/25/2018 Scooby Muñoz APRN [facility] INTERVENTIONL RAD ??? PRG EMG, LARYNX N/A 11/02/2015 FACIAL NERVE MONITORING, SETUP LARYNGEAL performed by Valentina Lucas MD at [facility] MAIN OR ??? PRO BREAST RECONSTRUC W FREE FLAP Bilateral 04/26/2017 @BREAST RECONSTRUCTION W/ FREE FLAP, SUSAN (WRVU 42.58) performed by Andre Gimenez MD at [facility] [place] ??? PRO BREAST RECONSTRUC W FREE FLAP, W/O IMPLANT Bilateral 12/12/2017 @BREAST RECONSTRUCTION W/ LAT DORSI FLAP,W/O IMPLANT, SUSAN (WRVU 23.36) performed by Andre Gimenez MD at [facility] OR ??? PRO BREAST RECONSTRUC W TISS EXPANDR Bilateral 04/26/2017 BREAST RECONSTRUCTION, IMMEDIATE OR DELAYED, W/ TISSUE COTTON CLEANER, INCLUDING SUBSEQUENT EXPANSION (WRVU 18.5) performed by Andre Gimenez MD at [facility] OR ? ? PRO DEBRIDEMENT SUBCUTANEOUS TISSUE 20 SQCM/< 06/22/2017 DEBRIDEMENT SKIN AND SUBCU, BREAST (WRVU 1.01) performed by Andre Gimenez MD at [facility] OR ??? PRO EXPLORE PARATHYROID GLANDS N/A 11/02/2015 PARATHYROIDECTOMY OR EXPLORATION OF PARATHYROID(S) performed by Valentina Lucas MD at [facility] OR ? ? PRO FULL THICK GRFT TRUNK <20 SQCM Bilateral 04/26/2017 FTSG, FREE, DIR CLOSE DONOR SITE, TRUNK, 20 SQ CM OR LESS (WRVU 9.15) performed by Andre Giemnez MD at [facility] OR ??? PRO INCISION OF LYMPH CHANNELS Left 10/18/2018 INCISION & DRAINAGE LYMPHOCELE (WRVU 6.81) performed by Andre Gimenez MD at [facility] OR ??? PRO IV INJ TO TEST BLOOD FLOW IN FLAP/GRAFT Left 10/18/2018 IV INJECTION, AGENT TO TEST VASC FLOW IN FLAP OR GRAFT, ENT (WRVU 1.95) performed by Andre Gimenez MD at [facility] OR ??? PRO MASTECTOMY, SIMPLE, COMPLETE Bilateral 04/26/2017 MASTECTOMY, SIMPLE, COMPLETE-SUSAN (WRVU 15.85) performed by Jolie Menendez MD at [facility] OR ??? PRO PARTIAL REMOVAL OF RIB Bilateral 04/26/2017 EXCISION OF RIB, PARTIAL (WRVU 7.26) performed by Andre Gimenez MD at [facility] OR ??? PRO REMOVE ARMPITS LYMPH NODES COMPLT Left 04/26/2017 LYMPHADENECTOMY, AXILLARY, COMPLETE (WRVU 13.87) performed by Jolie Menendez MD at [facility] MAIN OR ??? PRO REPLACE TISSUE COTTON CLEANER Bilateral 12/12/2017 TISSUE COTTON CLEANER REPLACEMENT, WITH PERMANENT PROSTHESIS, SUSAN (WRVU 8.01) performed by Andre Gimenez MD at [facility] MAIN OR ??? PRO REVISION RECONSTRUCTED BREAST Left 06/22/2017 REVISION OF RECONSTRUCTED BREAST (WRVU 10.41) performed by Andre Gimenez MD at [facility] MAIN OR ??? PRO REVISION RECONSTRUCTED BREAST Bilateral 12/12/2017 REVISION OFRECONSTRUCTED BREAST, SUSAN (WRVU 10.41) performed by Andre Gimenez MD at [facility] OR ??? PRO THYMECTOMY, TRANSCERVICAL N/A 11/02/2015 THYMECTOMY, TRANSCERVICAL APPROACH performed by Valentina Lucas MD at [facility] MAIN OR ??? SHOULDER SURGERY Left [...] Maternal Cousin 57 Social History Tobacco Use ??? Smoking status: Former Smoker Quit date: 08/07/1991 Years since quittin.4 ??? Smokeless tobacco: Never Used Vaping Use ??? Vaping Use: Never used Substance Use Topics ??? Alcohol use: Yes Comment: socially once a month ??? Drug use: No Review of Symptoms: Patient [...] between her own breast cancer. Torn ACL on surgery and her mother recent diagnosis of Alteration sexual function/body image: Not discussed at this time. Pain: States that she is doing well for pain control. And this in reference to her ACL repair. Breast chest arm tissue is not painful to her. Lifestyle/health: Weight/diet/appetite: No changes in weight or appetite. Sleep: Sleeping okay function/transportation: On crutches due to surgery. Exercise/Bone health: Recent ACL repair no other bone pain Smoking:former smoker quit 30 years ago Alcohol: No alcohol at this time Support/ social relationships: Phillip spouse Regular visits with PCP/immunizations/screenings: Advanced directives: Not discussed at this time Performance Status: KPS Score ECOG Grade Definition 90-100 0 Fully active, able to carry on all pre-disease performance without restriction X 70-80 1 Restricted in physically strenuous activity [...] chair Physical Examination: Body mass index is 35.26 kg/m??. BP 147/84 (Patient Position: Sitting) Pulse 76 Temp 37 ??C (98.6 ??F) (Temporal) Resp 18 Ht153.1 cm (5' 0.28) Wt 82.6 kg (182 lb 3.2 oz) Constitutional: seen by self in clinic , [...] Breast exam: L breast/axilla arm examined. LE severe of L arm and hand. She has a compression sleeve on but no compression on hand which is involved with the lymphedema as well. Scars from bilateral mastectomies appreciated, well-healed. Skin of chest is without erythema or discoloration except fora fine area of telangiectasias under the left breast. Left and right breast palpated without discomfort. There is some asymmetry with left breast a little bit higher and more firm than right breast. Can appreciate edges of prosthetics my palpation. No adenopathy appreciated axillary clavicular or cervical brannon areas bilaterally. No abdominal tenderness New Imaging Reviewed this Visit: Assessment: 55 y.o. presenting for follow up of breast cancer, for which she completed adjuvant radiation 03/11/18. Bilateral mastectomies with prosthetics. She has signif LE of L arm with sleeve in place. This has most certainly been aggravated by the fact that she had ACL repair has required the utilization of crutches over the course of the last month. She will touch base with her lymphedema specialist at the local physical therapy office where she is getting her ACL physical therapy. They are apparentlyin the same office as is convenient. She does not have any other real complaints, she feels that her ACL surgery turned out well and that she is recovering well. Medical Decision Making/Recommendations/Plan: # breast cancer: Lymphedema of left arm. Patient will discuss with her lymphedema specialist at hernext physical therapy appointment. No other concerning reported symptoms or physical examination findings today. Aside from ACL repair there is no other bone pain. # effects of EBRT: we discussed the potential for late effects of radiation including but not limited to skin changes (thickening, pigmentation changes, retraction, fibrosis, telangiectasias, edema of breast/arm; lung and/ or cardiac injury/inflammation. # survivorship concerns: At this time recovery from her orthopedic surgery is the most pressing matter and is well per mother's recent diagnosis and need for treatment in [place] of great concern to her. She may send her son out to [place] to see how he may be of help. # lifestyle/wellness concerns: # Reviewed: Symptoms that [...] to the radiation therapy/breast cancer Next visit: 6 months return to clinic. With bilateral mastectomies no mammogram is scheduled. Tahira Cardenas MSN, [employer], [employer] Nurse Practitioner Radiation Oncology documented in this encounter Plan of Treatment Upcoming Encounters Date Type Department Care Team (Late st Contact Info) Description 01/22/2024 10:30 AM EST Appointment Mammography/[place] [address] Ladi Mendosa MD [facility] HEMATOLOG[place] [address] 01/30/2024 11:30 AM EST Office Visit Dermatology at [facility] [address] [place] [address] Nilda Luis MD [facility] DR [place] [address] 02/15/2024 9:30 AM EST Appointment [place] [phone] [place] [address] documented as of this encounter Visit Diagnoses Diagnosis 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
--- OUTSIDE RECORDS SUMMARY | 2023-09-07 11:26 | XMS_ITS | Encounter Summary ---
Author Organization [facility] [place] [address] Care Team Providers Care Liquefaction Plant Operator Name Role Phone Trinh Coates MD Primary Care Provider [phone] Reason for Visit * Reason Comments Specialty Pharmacy Review Encounter Details Date Type Department Care Team (Late st Contact Info) Description 05/04/2020 Specialty [place] [phone] [facility] Social History Tobacco Use Types Packs/Day Years [...] as of this encounter Progress Notes * [facility] - 05/04/2020 11:59 PM EDT The - Specialty Pharmacy has completed a benefits investigation for Wendy Sandoval to review their eligibility to fill at [facility]. Per patient's medication list they are prescribed STELARA 45 MG/0.5 ML and the medication is not able to be filled at the - Specialty Pharmacy. documented in this encounter Plan of Treatment Upcoming Encounters Date Type Department Care Team (Late st Contact Info) Description 01/22/2024 10:30 AM EST Appointment Mammography/[place] [address] [facility] HEMATOLOGY/ONCOLOGY [place] [id number] 01/30/2024 11:30 AM EST Office Visit Dermatology at [facility] [address] [place] [address] [facility] [address] L[place] [address] 02/15/2024 9:30 AM EST Appointment Radiology at [place] [phone] [place] [address] documented as of this encounter Visit Diagnoses Not on filedocumented in this encounter Care Teams Liquefaction Plant Operator Relationship Specialty Start Date End Date Trinh Coates MD [facility] [address] [place] [address] PCP - General 01/11/10 documented as of this encounter
--- OUTSIDE RECORDS SUMMARY | 2023-09-07 11:26 | XMS_ITS | Encounter Summary ---
Author Organization [facility] [place] [address] Care Team Providers Care Filer Repairer Name Role Phone Trinh Coates MD Primary Care Provider [phone] Reason for Visit * Consultation (Routine) - Closed Specialty Diagnoses / Procedures Referred By Diamante marin Referred To Contact Neurology Diagnoses Dysesthesia of scalp Anderson Zhou MD [facility] [address] [place] [address] [facility] [address] [place] [address] Referral ID Status Reason Start Date Expiration Date V isits Requested Visits Authorized [id number] Closed Consult, Test & Treat 10/20/2019 10/19/2020 1 1 Encounter Details Date Type Department Care Team (Latest Contact Info) Description 01/13/2020 4:00 PM EST TH Visit (TeleHealth) [place] [address] Antwon Dowell MD [facility] [place] [address] Paresthesia of foot, bilateral (Primary Dx); Dysesthesia of scalp Social History Tobacco Use Types Packs/Day Years [...] as of this encounter Progress Notes * Antwon Dowell MD - 01/13/2020 4:00 PM EST Patient verbally consents to this telephone visit and understands that this visit may be billed, similar to a clinic office visit. I was asked to see Wendy Sandoval at the request of Dr. Morillo for further evaluation of scalp dysesthesia. Wendy is a 54-year-old female who I spoke to her via telehealth today. I did review dermatology note. The last mentions that after he had chemotherapy for breast cancer in 2018 she began to note some intermittent itching of her scalp after chemo was done and her hair started growing back. She has been followed by hematology here. She was on Taxel and ended up developing peripheral neuropathy. She did not note the scalp itching initially with his neuropathy. She was noticing some numbness tingling of her feet and fingers. She has been on gabapentin 300 mg twice daily. This does help with the neuropathy symptoms and she also mentions that her fingertingling has improved over time. She did not have any balance complaints. She has not had any otherlab tests for neuropathy although she mentions having a borderline hemoglobin A1c through her PCP. Her gabapentin is prescribed by her PCP. She tolerates it fine. As for the scalp complaints she notes itching intermittently through the day. This is been chronic and daily. He does again have time without it. She notes it either on the right or left scalp regionand sometimes also on the back of her head. She did not have any during the appointment initially but at the end of the appointment mentions some scalp itching on the back of her head. She notes it more at night and in the evening. She does not usually notice any burning pain with it except she says when she itches it it can burn some transiently. She does not otherwise notice any precipitating or relieving factors. It has not really changed over the last year. Dermatology has not noticed anything on exam. She does have psoriasis and is on Stelara. She also has tried clobetasol cream althoughthat was not helpful. She denies double vision, neck pain, visual complaints, or headaches. Patient Active Problem List Diagnosis Date Noted ??? History of breast cancer 12/12/2017 ??? Seroma of breast 09/13/2017 ??? Bacterial conjunctivitis 09/07/2017 ??? Hypokalemia 07/20/2017 ??? Surgery follow-up 05/10/2017 ??? Abdominal wound dehiscence 05/10/2017 ??? S/P breast reconstruction, bilateral 04/27/2017 ??? Malignant neoplasm of upper-outer quadrant of left breast in female, estrogen receptor [id number]/10/2018 ??? Hyperparathyroidism 11/02/2015 ??? Obstructive sleep apnea (adult) (pediatric) 11/12/2014 ??? OA (osteoarthritis) 11/12/2014 ??? Overweight(278.02) 11/12/2014 ??? Hypertension 03/15/2013 ??? Depression 03/15/2013 Past Surgical History: Procedure Laterality Date ??? BREAST BIOPSY Right 11/01 ??? SECTION x 2 ??? HAND SURGERY Right ??? IR DRAIN CHECK/CHANGE/REMOVE 11/20/2017 IR Drain Check/Change/Remove 11/20/2017 Marcos Dey MD [facility] ??? IR MEDIPORT REMOVAL 01/25/2018 IR Mediport Removal 01/25/2018 Scooby Muñoz, AARTI [facility] ??? PRG EMG, LARYNX N/A 11/02/2015 FACIAL NERVE MONITORING, SETUP LARYNGEAL performed by Valentina Lucas MD at [facility] ??? PRO BREAST RECONSTRUC W FREE FLAP Bilateral 04/26/2017 @BREAST RECONSTRUCTION W/ FREE FLAP, SUSAN (WRVU 42.58) performed by Andre Gimenez MD at [facility] ??? PRO BREAST RECONSTRUC W FREE FLAP, W/O IMPLANT Bilateral 12/12/2017 @BREAST RECONSTRUCTION W/ LAT DORSI FLAP,W/O IMPLANT, SUSAN (WRVU 23.36) performed by Andre Gimenez MD at [facility] ??? PRO BREAST RECONSTRUC W TISS EXPANDR Bilateral 04/26/2017 BREAST RECONSTRUCTION, IMMEDIATE OR DELAYED, W/ TISSUE CLIENT RELATION SPECIALIST, INCLUDING SUBSEQUENT EXPANSION (WRVU 18.5) performed by Andre Gimenez MD at [facility] ? ? PRO DEBRIDEMENT SUBCUTANEOUS TISSUE 20 SQCM/< 06/22/2017 DEBRIDEMENT SKIN AND SUBCU, BREAST (WRVU 1.01) performed by Andre Gimenez MD at [facility] OR ??? PRO EXPLORE PARATHYROID GLANDS N/A 11/02/2015 PARATHYROIDECTOMY OR EXPLORATION OF PARATHYROID(S) performed by Valentina Lucas MD at [facility] OR ? ? PRO FULL THICK GRFT TRUNK <20 SQCM Bilateral 04/26/2017 FTSG, FREE, DIR CLOSE DONOR SITE, TRUNK, 20 SQ CM OR LESS (WRVU 9.15) performed by Andre Gimenez MD at [facility] OR ??? PRO INCISION OF LYMPH CHANNELS Left 10/18/2018 INCISION & DRAINAGE LYMPHOCELE (WRVU 6.81) performed by Andre Gimenez MD at [facility] OR ??? PRO IV INJ TO TEST BLOOD FLOW IN FLAP/GRAFT Left 10/18/2018 IV INJECTION, AGENT TO TEST VASC FLOW IN FLAP OR GRAFT, ENT (WRVU 1.95) performed by Andre Gimenez MD at [facility] OR ??? PRO MASTECTOMY, SIMPLE, COMPLETE Bilateral 04/26/2017 MASTECTOMY, SIMPLE, COMPLETE-SUSAN (WRVU 15.85) performed by Jolie Menendez MD at [facility] OR ??? PRO PARTIAL REMOVAL OF RIB Bilateral 04/26/2017 EXCISION OF RIB, PARTIAL (WRVU 7.26) performed by Andre Gimenez MD at [facility] OR ??? PRO REMOVE ARMPITS LYMPH NODES COMPLT Left 04/26/2017 LYMPHADENECTOMY, AXILLARY, COMPLETE (WRVU 13.87) performed by Jolie Menendez MD at [facility] OR ??? PRO REPLACE TISSUE CLIENT RELATION SPECIALIST Bilateral 12/12/2017 TISSUE CLIENT RELATION SPECIALIST REPLACEMENT, WITH PERMANENT PROSTHESIS, SUASN (WRVU 8.01) performed by Andre Gimenez MD at [facility] OR ??? PRO REVISION RECONSTRUCTED BREAST Left 06/22/2017 REVISION OF RECONSTRUCTED BREAST (WRVU 10.41) performed by Andre Gimenez MD at [facility] OR ??? PRO REVISION RECONSTRUCTED BREAST Bilateral 12/12/2017 REVISION OFRECONSTRUCTED BREAST, SUSAN (WRVU 10.41) performed by Andre Gimenez MD at [facility] ??? PRO THYMECTOMY, TRANSCERVICAL N/A 11/02/2015 THYMECTOMY, TRANSCERVICAL APPROACH performed by Valentina Lucas MD at [facility] ??? SHOULDER SURGERY Left ??? UMBILICAL HERNIA REPAIR Medications 01/13/20 1631 Medication Sig Taking? anastrozole (Arimidex) 1 mg Tablet Take 1 tablet by mouth daily. clobetasoL (TEMOVATE) 0.05 % Solution Apply topically to scalp once daily as needed. clobetasoL (TEMOVATE) 0.05 % Cream Apply to affected areas on knees, elbows and hands twice daily for two week cycles as needed. ustekinumab (Stelara) 45 mg/0.5 mL subcutaneous injection Inject 0.5 mLs subcutaneously Every 12 weeks. tamoxifen (NOLVADEX) 20 mg Tablet Take 1 tablet by mouth daily. ibuprofen (ADVIL;MOTRIN) 200 mg Tablet Take 200 mg by mouth every 6 hours as needed for Pain. dilTIAZem (CARDIZEM CD) 240 mg Capsule, Sust. Release 24 hr Take 240 mg by mouth daily. triamcinolone (KENALOG) 0.1 % Ointment Apply 1 each topically 2 times daily. To affected areas on trunk spironolactone (ALDACTONE) 25 mg Tablet Take 1 tablet by mouth daily. gabapentin (NEURONTIN) 300 mg Capsule Take 1 capsule by mouth 3 times daily. losartan (COZAAR) 100 mg Tablet take 1 tablet by mouth once daily potassium chloride 20 mEq Tablet Sustained Release 1 tablet daily. cholecalciferol, Vitamin D3, (VITAMIN D-3) 5,000 unit Tablet Take by mouth. atorvastatin (LIPITOR) 20 mg Tablet Take 1 tablet by mouth daily. acetaminophen (TYLENOL) 325 mg Tablet Take 2 tablets by mouth every 4 hours as needed for Pain. Patient not taking: Reported on 12/29/2019 ferrous gluconate 324 mg (37.5 mg iron) Tablet Take 324 mg by mouth daily. fluoxetine (PROZAC) 40 mg capsule daily. Allergies Allergen Reactions ??? Zoloft [Sertraline] PSORIASIS FLARE Family history is negative for neuropathy. Social history: She lives with her outside of [place]. She does not smoke and drinks alcohol rarely. As this was a telehealth visit exam was limited although she is alert and attentive. Speech fluent and goal-directed without dysarthria. Extraocular muscles intact. Normal facial strength. She does not notice any loss of sensation over her scalp. Assessment: The etiology of her chronic itching of the scalp is unclear and we discussed that this can be a difficult symptom to tease out. A neuropathic process is possible. She does notice her symptoms worse in the evening and at night. She does have a history of peripheral neuropathy likely secondary to chemo. Her neuropathy symptoms occurred in the context of chemo and then she began to have itching of the scalp after completing chemo. I cannot completely rule out a coasting phenomenon where chemotherapy contributed to some small fiber neuropathy component of the scalp but that would be highly unusual. She may just have idiopathic scalp itching process without a clear neurologic cause. Recommendations: We did discuss further evaluation of neuropathy. We can send lab work requisition to [facility] for neuropathy screen including B12, vitamin B1, B6, SPEP. She mentions having hemoglobin A1c screening and TSH screening through her PCP. She mentions TSH was fine and hemoglobin A1c borderline. We also discussed that I can see her in the clinic and also proceed with EMG nerve conduction studies for evaluation of her neuropathy to see if that sheds any light on her clinical picture and she is interested in proceeding with that. She would like to have this done at the end of the year in thecontext of her insurance and we will work to set that up for her and I can see her back at that time including for the EMG. As for symptomatic treatment she can try increasing gabapentin to 600 mg in the evening and see if that leads to any improvement. We also discussed that we could consider a pain clinic consultation including consideration of low-dose naltrexone although she would like to hold off on that at this point. A compound cream could also be considered but she does have larger areas on the scalp with itching and I am not really sure how feasible or effective that would be. That could be considered by the pain clinic as well in the future if she did have an evaluation with them. I provided care to the patient today via telehealth. The total time associated with this visit was 40 minutes. This note was created with voice recognition software. documented in this encounter Plan of Treatment Upcoming Encounters Date Type Department Care Team (Late st Contact Info) Description 01/22/2024 10:30 AM EST Appointment Mammography[place] [address] Ladi Mendosa MD [facility] [place]AT[place] [address] 01/30/2024 11:30 AM EST Office Visit Dermatology at [place] [address] [place] [id number] Nilda Luis MD [facility] [place] [address] 02/15/2024 9:30 AM EST Appointment Radiology at [place] [phone] [place] [address] documented as of this encounter Visit Diagnoses Diagnosis Paresthesia of foot, bilateral- Primary Dysesthesia of scalp documented in this encounter Care Teams Filer Repairer Relationship Specialty Start Date End Date Trinh Coates MD [facility] [address] [place] [address] PCP - General 01/11/10 documented as of this encounter
--- OUTSIDE RECORDS SUMMARY | 2023-09-07 11:26 | XMS_ITS | Encounter Summary ---
Author Organization [facility] Address [facility] [place] [address] Care Team Providers Care Communications Representative Name Role Phone Trinh Coates MD Primary Care Provider [phone] Reason for Referral * Diagnostic Test (Routine) - Closed Specialty Diagnoses / Procedures Referred By Contac t Referred To Contact Radiology Diagnoses Malignant neoplasm of upper-outer quadrant of left breast in female, estrogen receptor positive Procedures DXA Central Spine, Hip, and/or Whole Body (Generic) Piter Barnett MD [facility] HEMATOLOGY/[place] [address] [facility] [address] [place] [address] [place] [address] Referral ID Status Reason Start Date Expiration Date V isits Requested Visits Authorized [id number] Closed Specialty Service Requested 02/24/2021 08/24/2022 1 1 Reason for Visit * Diagnostic Test (Routine) - Closed Specialty Diagnoses / Procedures Referred By Contac t Referred To Contact Radiology Diagnoses Malignant neoplasm of upper-outer quadrant of left breast in female, estrogen receptor positive Procedures DXA Central Spine, Hip, and/or Whole Body (Generic) Piter Barnett MD [facility] HEMATOLOGY/[place] [address] [facility] [employer] [facility] [address] [place] [address] [place] [address] Referral ID Status Reason Start Date Expiration Date V isits Requested Visits Authorized [id number] Closed Specialty Service Requested 02/24/2021 08/24/2022 1 1 Encounter Details Date Type Department Care Team (Latest Contact Info) Description 11/15/2021 10:04 AM EDT - 11/15/2021 11:59 PM EDT Hospital Encounter Mammography/DXA at [facility] [place] [address] Piter Barnett MD [facility] HEMATOLOGY/[place] [address] Malignant neoplasm of upper-outer quadrant of left [...] q 6 hrs daily as needed 11/15/2015 rosuvastatin (Crestor) 10 mg Tablet TAKE 1 [...] DR tablet 1 CAP daily 03/27/2014 024 exemestane (Aromasin) 25 mg TabletIndications:Stan bañuelos neoplasm of upper-outer quadrant of left breast in female, estrogen receptor positive Take 1 tablet by mouth daily. 30 tablet 11 10/13/2021 01/08/2023 ustekinumab (Stelara) 45 mg/0.5 mL subcutaneous injectionIndications:Ps oriasis MAINTENANCE: INJECT 1 SYRINGE SUBCUTANEOUSLY EVERY 12 WEEKS. REFRIGERATE. DO NOT FREEZE 0.5 mL 3 05/11/2021 05/16/2022 clobetasoL (TEMOVATE) 0.05 % SolutionIndications:Fol liculitis,Psoriasis Apply topically to scalp once daily as needed. 25 mL 5 10/20/2019 04/27/2022 ibuprofen (ADVIL;MOTRIN) 200 mg Tablet Take 200 [...] 11/03/2015 07/25/2022 documented as of this encounter Plan of Treatment Upcoming Encounters Date Type Department Care Team (Late st Contact Info) Description 01/22/2024 10:30 AM EST Appointment Mammography[place] [address] Ladi Mendosa MD [facility] HEMATOLOGY/[place] [address] 01/30/2024 11:30 AM EST Office Visit Dermatology at [facility] [address] [place] [address] Nilda Luis MD [facility] DR LIDIA [place] [address] 02/15/2024 9:30 AM [place] [phone] [place] [address] documented as of this encounter Procedures Procedure Name Priority Date/Time Associated Diagnosis Comments DXA CENTRAL SPINE, HIP, AND/OR WHOLE BODY (GENERIC) Routine 11/15/2021 10:54 AM EDT Malignant neoplasm of upper-outer quadrant of left breast in female, estrogen receptor positive documented in this encounter Results * DXA Central Spine, Hip, and/or Whole Body (Generic) (11/15/2021 10:54 AM EDT) Anatomical Region Laterality Modality C-spine, Hip N/A Other Impressions 11/15/2021 1:36 PM EDT Measurements meet WHO criteria for osteopenia. Bone mineral density measurements are decreased at the hip by 5% over 3 years. Estimating Fracture Risk: The relationship between bone mineral density (BMD) and risk of fracture is well established. As BMD decreases, risk increases. Quantifying risk is difficult and is usually limited to estimation of the relative risk - a term which may have limited value when trying to discuss an individual's risk. Estimating the absolute risk for a patient requires an understanding of the incidence rate in a given population and consideration of multiple, partially independent, risk factors in addition to BMD. The World Health Organization (WHO) has developed a fracture risk prediction tool that calculates a ten-year risk of major osteoporotic fracture based on femoral neck bone density measurements and nine clinical risk factors for individuals who have not been treated for osteoporosis. This is available through an interactive web-based interface (http://www.shef.ac.uk/FRAX/) and can be used to estimate a given patient's absolute risk of major osteoporotic fracture or hip fracture over the next 10 years. These estimates may prove useful when discussing risk with a patient. It is important, however, to understand the tool's limitations and how a given individual's risk might differ from the tool's estimate. The tool does not take into account the dose-response associated with most risk factors. For example, the significant increase in risk associated with multiple prior fractures compared to a single prior fracture is not taken into account. Similarly, the location of a previous fracture, the amount of glucocorticoids and number of cigarettes smoked are not considered. These limitations are discussed in a Frequently Asked Questions section of the FRAX website which you are encouraged to review. DEXA data sheets with BMD measurements and plots are available in [email or web address] under the imaging tab. Paper copies will be sent to providers without [employer] access. If you have received this report without the data sheet and do not have access to [email or web address], please contact Radiology [facility] at [phone] Sunday thru Sunday 8am-4pm. ? Bone Density Report ? Name: ?Lori Wendy Yannick Age: ? 56 Sex: ? Female Ethnicity: ? White Date of : 1965 Referring Provider: PITER BARNETT Study: Bone densitometry was performed. Exam Date: November 15, 2021 Accession number: [id number] Bone Density: Region ?BMD ?T-score ??Z-score ? AP Spine(L1-L4) ?1.180 ?1.2 ?2.5 ? Femoral Neck (Left) ?? 0.723 ?? -1.1 ?0.1 ? Total Hip (Left) ? 0.811 ?? -1.1 ? -0.2 ? 1/3 Forearm (Right) ?0.709 ?0.3 ?1.4 ? World Health Organization criteria for BMD impression classify patients as: Normal (T-score at or above -1.0), Osteopenia (T-score between -1.0 and -2.5), or Osteoporosis (T-score at or below -2.5). Reported by: ?? on 11/15/2021 10:52:00 AM. Thank you for letting us participate in the care of this patient. ??If you are a health care provider and have any questions regarding this report, please contact the number below. ??For patients who have questions please contact the health intensive care unit nurse that requested your imaging first. ? Electronically signed by: Ophelia Carver MD, [facility] ([phone]), at 11/15/2021 1:36 PM Narrative 11/15/2021 1:36 PM EDT EXAMINATION: DXA CENTRAL SPINE, HIP, AND/OR WHOLE BODY (GENERIC) CLINICAL HISTORY: ??56 years Female Aromatase inhibitor therapy for BrCa (as entered by ordering provider) TECHNIQUE: Scans were acquired at the lumbar spine, distal right forearm and left hip using the Sky[employer] A system. FINDINGS: Femoral neck BMD: 0.723 g/cm2 Lowest T-score at the diagnostic region of interest: T-score: -1.1, BUSHRA: Femoral neck, WHO diagnosis: osteopenia. ......... Comparison......... Baseline scan:January 29, 2019 Total spine: Compared to the baseline, 0.033 g/cm2 (3 %) increase. At [facility], least significant change for bone mineral density measurements at the spine region of interest: 0.031 g/cm2 Total hip: Compared to the baseline, -0.042 g/cm2 (5 %) decrease. At [facility], least significant change for bone mineral density measurements at the left total hip region of interest: 0.025 g/cm2 Procedure Note Ophelia Carver MD - 11/15/2021 EXAMINATION: DXA CENTRAL SPINE, HIP, AND/OR WHOLE BODY (GENERIC) CLINICAL HISTORY: 56 years Female Aromatase inhibitor therapy for BrCa(as entered by ordering provider) TECHNIQUE: Scans were acquired at the lumbar spine, distal right forearmand left hip using the SkyPower A system. FINDINGS: Femoral neck BMD: 0.723 g/cm2 Lowest T-score at the diagnostic region of interest: T-score: -1.1, BUSHRA: Femoral neck, WHO diagnosis: osteopenia. ......... Comparison......... Baseline scan:January 29, 2019 Total spine: Compared to the baseline, 0.033 g/cm2 (3 %) increase. At [facility], least significant change for bonemineral density measurements at the spine region of interest: 0.031 g/cm2 Total hip: Compared to the baseline, -0.042 g/cm2 (5 %) decrease. At [facility], least significant change for bonemineral density measurements at the left total hip region of interest: 0.025g/cm2 IMPRESSION Measurements meet WHO criteria for osteopenia. Bone mineral density measurements are decreased at the hip by 5% over 3years. Estimating Fracture Risk: The relationship between bone mineral density (BMD) and risk of fractureis well established. As BMD decreases, risk increases. Quantifying risk isdifficult and is usually limited to estimation of the relative risk - a term which mayhave limited value when trying to discuss an individual's risk. Estimatingthe absolute risk for a patient requires an understanding of the incidencerate in a given population and consideration of multiple, partially independent,risk factors in addition to BMD. The World Health Organization (WHO) has developed a fracture riskprediction tool that calculates a ten-year risk of major osteoporotic fracture basedon femoral neck bone density measurements and nine clinical risk factorsfor individuals who have not been treated for osteoporosis. This isavailable through an interactive web-based interface (http://www.shef.ac.uk/FRAX/)and can be used to estimate a given patient's absolute risk of majorosteoporotic fracture or hip fracture over the next 10 years. These estimates mayprove useful when discussing risk with a patient. It is important, however, to understand the tool's limitations and how a given individual's risk mightdiffer from the tool's estimate. The tool does not take into account thedose-response associated with most risk factors. For example, the significant increasein risk associated with multiple prior fractures compared to a single priorfracture is not taken into account. Similarly, the location of a previous fracture,the amount of glucocorticoids and number of cigarettes smoked are notconsidered. These limitations are discussed in a Frequently Asked Questions sectionof the FRAX website which you are encouraged to review. DEXA data sheets with BMD measurements and plots are available in [employer] the imaging tab. Paper copies will be sent to providers without [email or web address] access.If you have received this report without the data sheet and do not haveaccess to [employer], please contact Radiology [facility] at [phone] Sunday thruFrid 8am-4pm. Bone Density Report Name: Wendy Sandoval Age: 56 Sex: Female Ethnicity: White Date of : 1965 Referring Provider: PITER BARNETT Study: Bone densitometry was performed. Exam Date: November 15, 2021 Accession number: [id number] Bone Density: Region BMD T-score Z-score AP Spine(L1-L4) 1.180 1.2 2.5 Femoral Neck (Left) 0.723 -1.1 0.1 Total Hip (Left) 0.811 -1.1 -0.2 1/3 Forearm (Right) 0.709 0.3 1.4 World Health Organization criteria for BMD impression classify patients as: Normal (T-score at or above -1.0), Osteopenia (T-score between -1.0 and -2.5), or Osteoporosis (T-score at or below -2.5). Reported by: on 11/15/2021 10:52:00 AM. Thank you for letting us participate in the care of this patient. If youare a health care provider and have any questions regarding this report,please contact the number below. For patients who have questions please contactthe health intensive care unit nurse that requested your imaging first. Piter Barnett MD IMG DEXA ORDERABLES documented in this encounter Visit Diagnoses Diagnosis Malignant neoplasm of upper-outer quadrant of left breast in female, estrogen receptor positive documented in this encounter Care Teams Communications Representative Relationship Specialty Start Date End Date Trinh Coates MD [address] [facility] [address] [place] [address] PCP - General 01/11/10 documented as of this encounter
--- OUTSIDE RECORDS SUMMARY | 2023-09-07 11:26 | XMS_ITS | Encounter Summary ---
[place] [address] Care Team Providers Care Seed Cleaning Machine Operator Name Role Phone Trinh Coates MD Primary Care Provider [phone] Reason for Visit * Reason Onset Date Comments Follow-up 08/03/2020 AI Holiday Encounter Details Date Type Department Care Team (Late st Contact Info) Description 08/03/2020 Telephone Hematology [place] [phone] Arpita Ordonez RN Follow-up (AI Holiday) Social History Tobacco Use Types Packs/Day Years [...] Telephone Encounter - Arpita Ordonez RN - 08/03/2020 8:39 AM EDT Images from the original note were not included. Arpita Ordonez RN P [facility] Hem Onc Triage Breast Follow up AI anastrozole holiday started 07/14 for all over joint and body aches Per MD notes 07/29/20 She will continue her holiday for 2 more weeks and then let us know how she feels. If significantly better, will resume. If no better, will refer back to PCP to work up these sxs as unlikely all dueto the AI. If they return after restarting the anastrazole, will consider a switch to a different AI. Call placed to patient 08/03 left message Not as much achiness and pains. Lower back and elbow and feet are still areas most troublesome. Feet 10/10 by end of day. 7/10 other aches. Taking 3 x200mg IBU sometimes only when I can't stand the pain anymore. She also just keeps moving. We discussed a trial of taking the IBU per package directions but around the clock for a couple of days to see if this gets her ahead of the pain versus random usage. Revisited discussion from last visit concerning what does this break tell us and how we move forward from there. It may involve a multi pronged approach with PCP following up on some areas and othershelped by the holiday and may involve switching AIs or some of all of these. Follow up with patient in one week which will make 4 week holiday total. documented in this encounter Plan of Treatment Upcoming Encounters Date Type Department Care Team (Late st Contact Info) Description 01/22/2024 10:30 AM EST Appointment Mammography/DXA at [place] [phone] Ladi Mendosa MD [facility] HEMATOLOGY/[place] [address] 01/30/2024 11:30 AM EST Office Visit [address]atology [address] [place] [phone] Nilda Luis MD [facility] DR LID[place] [address] 02/15/2024 9:30 AM EST Appointment Radiology at [place] [phone] [place] [address] documented as of this encounter Visit Diagnoses Not on filedocumented in this encounter Care Teams Seed Cleaning Machine Operator Relationship Specialty Start Date End Date Trinh Coates MD [address] [facility] [address] [place] [address] PCP - General 01/11/10 documented as of this encounter
--- OUTSIDE RECORDS SUMMARY | 2023-09-07 11:26 | XMS_ITS | Encounter Summary ---
Author Organization [facility] Address [facility] [place] [address] Care Team Providers Care Senior Information Systems Architect Name Role Phone Trinh Coates MD Primary Care Provider [phone] Reason for Visit * Reason Comments Skin Cancer Examination Encounter Details Date Type Department Care Team (Late st Contact Info) Description 05/04/2020 10:15 AM EDT Office Visit Dermatology at [address] [phone] Nilda Luis MD [facility] [place] [address] High risk medications (not anticoagulants) long-term use; Psoriasis; Dysesthesia of scalp; Sebaceous gland hyperplasia; Multiple benign nevi; Lentigines; History of atypical nevus Social History Tobacco Use Types Packs/Day Years [...] Progress Notes * Nilda Luis MD - 05/04/2020 10:15 AM EDT DERMATOLOGY ESTABLISHED PATIENT CLINIC NOTE Date of Service: 05/04/2020 Wendy Sandoval : 1965 Provider: Nilda Luis MD Chief Complaint Patient presents with ??? Skin Cancer Examination SKIN HX Personal History Y/N Date, location, treatment Melanoma N DN Y 09/08/2013: left neck, Atypical lentiginous junctional melanocytic proliferation, S/P WLE 10/10/2013 SCC N BCC N AK or field cancerization therapy N 5FU/Carac: PDT: nicotinamide: [] Yes [] No Immunosuppression or malignancy Y H/O Breast cancer S/P chemotherapy and radiation Blistering sunburns or tanning bed use N Other (i.e., eczema, psoriasis) Y Psoriasis (since age 16), started Stelara 09/12/18; previous treatments: triamcinolone ointment, calcipotriene, clobetasol cream, [id number] Relevant social history Family History Y/N Parents, siblings, children Melanoma N NMSC N Other Y Mother: psoriasis Patient Preferences Preferred name Wendy Preferred contact method [x] Home [] Cell [] myD-H [] Other: Permission to leave detailed message including results [x] Yes [] No Permission to discuss care with N/A Preferred pharmacy [facility] in [place], [place] Procedure Screening Questions Y/N Allergies to lidocaine or epinephrine N Blood thinners N Pacemaker or defibrillator N HPI Wendy Yannick Sandoval is a 54 y.o. female, established patient last seen by Dr. Zhou on 10/20/2019. Here today for a full skin exam with the following concerns: - Patient notes that she uses clobetasol solution on the scalp with no improvement. Her scalp is itchy, especially at night. - Two asymptomatic psoriasis patches on the right leg present for 3 weeks. clobetasol no Last FSE: 03/04/2019 MEDS Current Outpatient Medications Medication Sig Dispense Refill ??? Stelara 45 mg/0.5 mL subcutaneous injection MAINTENANCE: INJECT 1 SYRINGE SUBCUTANEOUSLY EVERY 12 WEEKS. REFRIGERATE. DO NOT FREEZE 4 mL 2 ??? anastrozole (Arimidex) 1 mg Tablet Take 1 tablet by mouth daily. 90 tablet 3 ??? clobetasoL (TEMOVATE) 0.05 % Solution Apply topically to scalp once daily as needed. 25 mL 5 ??? clobetasoL (TEMOVATE) 0.05 % Cream Apply to affected areas on knees, elbows and hands twice daily for two week cycles as needed. 60 g 3 ??? tamoxifen (NOLVADEX) 20 mg Tablet Take 1 tablet by mouth daily. 90 tablet 3 ??? ibuprofen (ADVIL;MOTRIN) 200 mg Tablet [...] tablet by mouth once daily 0 ??? potassium chloride 20 mEq Tablet Sustained Release 1 tablet daily. 0 ??? cholecalciferol, Vitamin D3, (VITAMIN D-3) 5,000 unit Tablet Take by mouth. ??? atorvastatin (LIPITOR) 20 mg Tablet Take 1 tablet by mouth daily. 0 ??? acetaminophen (TYLENOL) 325 mg Tablet Take 2 tablets by mouth every 4 hours as needed for Pain.(Patient not taking: Reported on 12/29/2019) ??? ferrous gluconate 324 mg (37.5 mg iron) Tablet Take 324 mg by mouth daily. ??? fluoxetine (PROZAC) 40 mg capsule daily. No current facility-administered medications for this visit. ADR Allergies Allergen Reactions ??? Zoloft [Sertraline] PSORIASIS FLARE ROS General: Feeling well Skin: Denies other skin complaints EXAM General: NAD, pleasant, cooperative Skin: Patient was asked to undress to the level of her comfort. Verbalized that the provider's preference is for the patient to remove all clothing and that the provider will not examine areas patient elects to keep covered. Patient's decision was to remove bra and underwear but keep compression garment on the left arm (lymphadenopathy) for a total body skin exam. This includes examination of thescalp, hair, face, ears, neck, chest, breasts, abdomen, back, axillae, right upper extremity, lowerextremities, right hand, and feet. Genitalia were not examined. Buttocks were examined with patient's consent. Areas of face under mask examined (COVID-19): [x] Yes [] No Significant Skin Findings: A. Few pink scattered plaques on the scalp, worse on the occipital scalp; Few < 1 cm plaques on the legs, otherwise skin is clear of psoriasis B. Heme crusted papules on the left scalp C. Face: Scattered 0.2-0.3 cm yellowish papules with central umbilication. D. Trunk and extremities: Multiple 0.3-0.5 cm medium-brown, evenly-pigmented macules and papules. All with regular pigment pattern on dermoscopy. No pigmented lesions suspicious for melanoma. E. Sun-exposed areas of the trunk and extremities: Scattered 0.3-0.6 cm light- brown, evenly pigmented, well-demarcated macules. F. Well-healed scar per skin history. ASSESSMENT/PLAN A. Psoriasis - Well controlled. - Continue Rx ustekinumab (Stelara) 45mg/0.5mL pen or syringe: inject 45mg (1 pen/syringe) SQ every12 weeks. - Reviewed necessity of lab monitoring and routine follow ups. - Labs: QuantGold, CBC, CMP B. Favor Scalp Dysesthesia - Based on limited extent of psoriasis on the scalp, is unlikely to be main driver's license reviewing officer of the pruritus. - Discussed treatment options, including topical steroids, antihistamines, and XTRAC laser. Patientwill consider XTRAC laser for the future. - Continue Rx clobetasol (Temovate) 0.05% solution: Apply topically to scalp as needed. Labs: TTg C. Sebaceous Hyperplasia - Discussed diagnosis and etiology (benign growths of sebaceous glands and hair follicle unit). - Provided reassurance. No treatment necessary at this time. D. Benign-Appearing Nevi - No atypical lesions or features worrisome for malignancy. - Advised patient to watch for anything new or changing. Discussed changes (bleeding, pain, change in color or shape) that should prompt re-evaluation. - Will continue to monitor. E. Lentigines - No worrisome pigmented lesions. Discussed benign nature of lesions and provided reassurance. No treatment necessary at this time. - Discussed importance of sun protection (protective clothing and SPF 30+ broad- spectrum sunscreen)and sun avoidance strategies. F. History of Atypical Nevus - No evidence of recurrence; will continue to monitor. Follow Up: RTC in 1 year for: [x] FSE [x] Follow up - psoriasis [] Note routed to administrative secretary to schedule [x] Recall placed in scheduling system [] Appointment scheduled before exiting Note initiated by: Ailyn Cornejo CMA I am documenting this encounter acting as the scribe for and in the presence of Dr. Luis: Abby Espinal I performed the above scribed service and agree with the accuracy of the documentation in this encounter. Nilda Luis MD Manager Business Development [facility] Department of Dermatology [facility] cc: Trinh Coates MD * Nilda Luis MD - 05/04/2020 10:15 AM EDT CD, Labs are OK to continue Stelara. There was mildly elevated creatinine (renal function), which was actually better than it has been in the past but should be followed by her PCP if it is not already. Testing for celiac / wheat allergy was negative. Please notify patient. documented in this encounter Plan of Treatment Upcoming Encounters Date Type Department Care Team (Late st Contact Info) Description 01/22/2024 10:30 AM EST Appointment Mammography[place] [address] Ladi Mendosa MD [facility] [place] [address] 01/30/2024 11:30 AM EST Office Visit Dermatology at [facility] [address] [place] [address] Nilda Luis MD [facility] [address] [place] [address] 02/15/2024 9:30 AM EST [place] [phone] [place] [address] documented as of this encounter Procedures Procedure Name Priority Date/Time Associated Diagnosis Comments HC QUANTIFERON Routine 05/04/2020 11:06 AM EDT High risk medications (not anticoagulants) long-term use HEMOGRAM Routine 05/04/2020 11:06 AM EDT High risk medications (not anticoagulants) long-term use DIFFERENTIAL, AUTOMATED Routine 05/05/19 11:06 AM EDT High risk medications (not anticoagulants) long-term use HC TISSUE TRANSGLUTAMINASE AB Routine 05/04/2020 11:06 AM EDT High risk medications (not anticoagulants) long-term use HC CBC,PLT & AUTO DIFF Routine 11:06 AM EDT High risk medications (not anticoagulants) long-term use HC VENIPUNCTURE Routine 05/04/2020 11:06 AM EDT High risk medications (not anticoagulants) long-term use documented in this encounter Results * (ABNORMAL) Differential, Automated (05/04/2020 11:06 AM EDT) Neutrophils % 65.4 % [facility] Neutr Abs (ANC) 5.84 1.70 - 6.10 x10(3)/mc L [facility] Lymphocytes % 18.2 % [facility] Lymphocytes Abs 1.6 0.9 - 3.2 x10(3)/mc L [facility] Monocytes % 9.3 % [facility] Monocyte Abs 0.8 0.3 - 0.9 x10(3)/mc L [facility] Eosinophils % 5.3 % [facility] Eosinophils Abs 0.5(H) 0.0 - 0.4 x10(3)/[facility] Basophils % 1.6 % [facility] Basophils Abs 0.1 0.0 - 0.1 x10(3)/[facility] Immature Gran % 0.20 % [facility] Comment: Immature granulocytes(IG's)percentage and absolute count will include metamyelocytes, myelocytes, and promyelocytes. Blood smears from CBCs yielding IG's will be scanned manually for concordance. If this scan disagrees with the automated IG or if promyelocytes are noted, a manual differential will be performed. Nova Gran Abs 0.02 0.00 - 0.04 x10(3)/[facility] Blood specimen (specimen) 05/04/2020 11:06 AM EDT 05/04/2020 1:26 PM EDT Narrative Resulting Agency Comment Spec In Lab Nilda Luis MD HEMATOLOGY ORDERABL ES [facility] [place] [address] * (ABNORMAL) Hemogram (05/04/2020 11:06 AM EDT) WBC 8.9 4.0 - 9.5 x10(3)/[facility] RBC 4.34 4.00 - 5.21 x10(6)/[facility] Hemoglobin 13.7 11.7 - 15.5 gm/dL [facility] Hematocrit 42.4 35.7 - 45.8 % [facility] MCV 97.7(H) 82.6 - 94.4 fL [facility] MCH 31.6 27.1 - 32.0 pg [facility] MCHC 32.3 31.7 - 35.0 gm/dL [facility] Platelets 309 145 - 357 x10(3)/[facility] RDWSD 46.6(H) 37.0 - 46.0 fL [facility] RDWCV 13.1 11.5 - 14.1 % [facility] MPV 10.3 7.6 - 12.9 [facility] nRBC % Auto 0.0 % [facility] nRBC Abs Auto 0.000 0.000 - 0.000 x10(3)/[facility] Blood specimen (specimen) 05/04/2020 11:06 AM EDT 05/04/2020 1:26 PM EDT Narrative Resulting Agency Comment Spec In Lab Nilda Luis MD HEMATOLOGY ORDERABL ES [facility] [place] [address] * (ABNORMAL) Comprehensive metabolic panel (non-fasting) (05/04/2020 11:06 AM EDT) Glucose Lvl 97 65 - 199 mg/dL [facility] Comment:Diabetes: >=200 mg/d L plus symptoms BUN 27(H) 8 - 18 mg/dL [facility] Creatinine 1.34(H) 0.70 - 1.20 mg/dL [facility] Sodium 143 135 - 145 mmol/L [facility] Potassium 4.5 3.5 - 5.0 mmol/L [facility] Comment: Please note: ??Patients with WBC >100,000 may have falsely elevated Potassium levels. ??For accurate Potassium quantification in these patients send serum separator tube (gold top) for subsequent determinations. ??Contact the Clinical Chemistry Laboratory if there are any questions. Chloride 108(H) 98 - 107 mmol/L [facility] CO2 24 22 - 31 mmol/L [facility] Anion Gap 11 5 - 15 mmol/L [facility] Calcium 9.5 8.5 - 10.5 mg/dL [facility] Total Protein 7.5 6.1 - 8.0 gm/dL [facility] Albumin 4.5 3.2 - 5.2 gm/dL [facility] AST 19 0 - 30 unit/L [facility] ALT 29 0 - 30 unit/L [facility] Alk Phos 97 35 - 105 unit/L [facility] Total Bilirubin 0.4 0.2 - 1.3 mg/dL [facility] Estimated GFR 44(L) >=60 mL/min/1. 73 m?? [facility] Comment: This patient? s estimated glomerular filtration rate (eGFR) is between 44 mL/min/1.73 m2 (patients with less muscle mass) and 51 mL/min/1.73 m2 (patients with more muscle mass) as determined by the CKD-EPI equation. Assessment of eGFR is not appropriate when creatinine concentrations are rapidly changing. For clinical decisions where creatinine clearance will affect therapy, a 24-hour urine creatinine clearance may be advised. Assignment of CKD stage 1 - 5 for patients with an eGFR near the transition point between stages may be based on clinical assessment of muscle mass and symptoms in addition to eGFR. Blood specimen (specimen) 05/04/2020 11:06 AM EDT 05/04/2020 12:56 PM EDT Narrative Resulting Agency Comment Spec In Lab Nilda Luis MD CHEMISTRY ORDERABLE S Performing Organization Address City/State/[facility] Co de Phone Number [facility] [place] [address] * QuantiFERON-TB Gold (05/04/2020 11:06 AM EDT) QFT Nil 0.010 IU/mL [facility] QFT TB Ag1-Nil 0.000 IU/mL [facility] QFT TB Ag2-Nil 0.000 IU/mL [facility] QFT Mitogen-Nil 9.410 IU/mL [facility] Quantiferon TB Negative Negative [facility] Quantiferon TB Interp M. [...] affect immune function, or other immunological factors. [facility] Comment: The performance of the QFT-Plus assay has not been extensively evaluated with specimens from the following individuals: Individuals who have impaired or altered immune functions, such as those who have HIV infection or AIDS, those who have transplantation managed with immunosuppressive treatment or others who receive immunosuppressive drugs (e.g., corticosteroids, methotrexate, azathioprine, cancer chemotherapy), those who have other clinical conditions, such as diabetes, silicosis, chronic renal failure, and hematological disorders (e.g., leukemia and lymphomas), or those with other specific malignancies (e.g., carcinoma of the head or neck and lung). Individuals younger than age 17 years women. Diagnosis of, or the exclusion of tuberculosis disease, and assessment of Latent Tuberculosis Infection (LTBI) requires a combination of epidemiological, historical, Medical and diagnostic findings that should be taken into account when interpreting QFT-Plus results. Blood specimen (specimen) 05/04/2020 11:06 AM EDT 05/06/2020 7:15 AM EDT Narrative Resulting Agency Comment Spec In Lab Nilda Luis MD CHEMISTRY ORDERABLE S [facility] [place] [address] * Tissue transglutaminase, IgA (05/04/2020 11:06 AM EDT) TTG IgA Ab 1.0 0.1 - 10.0 u/ml [facility] Comment: Negative = <7 U/mL Equivocal = 7-10 U/mL Positive = >10 U/mL Blood specimen (specimen) 05/04/2020 11:06 AM EDT 05/04/2020 3:28 PM EDT Narrative Resulting Agency Comment Spec In Lab Nilda Luis MD IMMUNOLOGY ORDERABL ES Performing Organization Address City/State/[facility] Co de Phone Number [facility] [place] [address] documented in this encounter Visit Diagnoses Diagnosis High risk medications (not anticoagulants) long-term use Encounter for long-term (current) use of other medications Psoriasis Other psoriasis Dysesthesia of scalp Sebaceous gland hyperplasia Other specified disease of sebaceous glands Multiple benign nevi Benign neoplasm of skin, site unspecified Lentigines Other dyschromia History of atypical nevus Personal history of diseases of skin and subcutaneous tissue documented in this encounter Care Teams Senior Information Systems Architect Relationship Specialty Start Date End Date Trinh Coates MD [address] [place] [address] PCP - General 01/11/10 documented as of this encounter
--- OUTSIDE RECORDS SUMMARY | 2023-09-07 11:26 | XMS_ITS | Encounter Summary ---
Author Organization [facility] [place] [address] Care Team Providers Care Data Science And Iot Manager Name Role Phone Trinh Coates MD Primary Care Provider [phone] Reason for Referral * Consultation (Routine) - Closed Specialty Diagnoses / Procedures Referred By Diamante marin Referred To Contact Neurology Diagnoses Dysesthesia of scalp Anderson Zhou MD [facility] [address] [place] [address] [facility] [address] [place] [id number] Referral ID Status Reason Start Date Expiration Date V isits Requested Visits Authorized [id number] Closed Consult, Test & Treat 10/20/2019 10/19/2020 1 1 Reason for Visit * Reason Comments Psoriasis Encounter Details Date Type Department Care Team (Late st Contact Info) Description 10/20/2019 3:00 PM EDT Office Visit Dermatology at [facility] [address] [place] [address] Anderson Zhou MD [facility] [address] [address] SK (seborrheic keratosis); Psoriasis; Folliculitis; Pruritus; Dysesthesia of scalp Social History Tobacco Use [...] as of this encounter Progress Notes * Winnie Anderson R - 10/20/2019 3:00 PM EDT Images from the original note were not included. DERMATOLOGY - ESTABLISHED PATIENT FOLLOW-UP Date of service: 10/20/2019 Wendy Sandoval : 1965, 54 y.o. Chief Complaint: Chief Complaint Patient presents with ??? Psoriasis HPI: Wendy Sandoval is a 54 y.o. female last seen by myself on 03/04/2019. Ms. Sandoval returns today for psoriasis follow up, currently treating with Stelara 45mg SQ q 12 weeks and clobetasol ointment as needed for flares, with good control, although her scalp continues to be itchy, particularly at night. Continues clobetasol solution to scalp with temporary relief. No other concerns today. Arm itch resolved. She has not noted any other new, growing, changing, bleeding,painful or otherwise symptomatic moles or other lesions. She has not noted any other changes in anypreexisting lesions. Relevant Skin History: Skin cancer: No Skin disease: Psoriasis (since age 16), started Stelara 09/12/18; previous treatments: triamcinoloneointment, calcipotriene, clobetasol cream,??MG217? 09/08/2013 Left neck, punch biopsy: Atypical lentiginous junctional melanocytic proliferation, extending to the peripheral margin, and associated lentiginous compound nevus.??Comment:??There is a proliferation of single and nested junctional melanocytes which is concerning because it is on actinically damaged skin. ??We do not see enough proliferation for the diagnosis of melanoma in situ, and there is a central nevus component. ??However, because the nature of the proliferation is not certain, re-excision is recommended to fully remove the lesion and prevent recurrence.??- s/p WLE 10/10/13?? - 03/04/2019: Skin, left chest, shave biopsy: Compound melanocytic nevus with features of congenital onset and post-inflammatory ??pigment alterations, present at the peripheral and deep specimen edges Relevant Medical History: - History of breast cancer??s/p chemo,??radiation ?? Family Skin History: Melanoma: father had non melanoma skin cancer in his ears Skin disease: Mother has psoriasis ?? 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 Medications: Current Outpatient Medications Medication Sig Dispense Refill ??? ustekinumab (Stelara) 45 mg/0.5 mL Syringe Inject 0.5 mLs subcutaneously Every 12 weeks. 1 Syringe 0 ??? tamoxifen (NOLVADEX) 20 mg Tablet Take 1 tablet by mouth daily. 90 tablet 3 ??? ibuprofen (ADVIL;MOTRIN) 200 mg Tablet Take 200 mg by mouth every 6 hours as needed for Pain. ??? dilTIAZem (CARDIZEM CD) 240 mg Capsule, Sust. Release 24 hr Take 240 mg by mouth daily. ??? clobetasol (TEMOVATE) 0.05 % Solution Apply topically to scalp once daily as needed. 25 mL 5 ??? triamcinolone (KENALOG) 0.1 % Ointment Apply [...] Take 324 mg by mouth daily. ??? clobetasol (TEMOVATE) 0.05 % Cream Apply to affected areas on knees, elbows and hands twice daily for two week cycles as needed. 60 g 3 ??? fluoxetine (PROZAC) 40 mg capsule daily. No current facility-administered medications for this visit. Allergies: Allergies Allergen Reactions ??? Zoloft [Sertraline] PSORIASIS FLARE Review of Systems: - General: Feels well - Skin: No other skin concerns. Examination: - Constitutional: Patient was alert, well-appearing and in no noticeable distress. - Focused Exam: Skin examination of the bilateral upper and lower extremities, hands, and scalp wasnormal with the exception of the findings listed below - A nurse/MA was present and on standby during my examination. Diagnosis/Skin findings/Assessment/Plan: # Psoriasis. Skin clear today - Continue sensitive Skin Care with moisturizers 2x daily; avoid drying soaps; stop all aggressive scrubbing of plaques - If needed ok to restart Clobetasol 0.05% ointment to thick plaques BID as needed. Refill Rx today - Continue Stelara 45mg SQ q 12 weeks. Refill Rx today. - Plan to check labs at next visit ?? # Seborrheic Keratosis: Scattered brown and flesh colored waxy nummular stuck on plaques located onright thigh - Reassured of benign nature, return to clinic if these lesions become inflamed or irritating # Scalp dysesthesia- Scalp clear today Advised that itch can be associated with a primary skin condition such as: psoriasis, atopic dermatitis,or scabies or can be a sign of an underlying systemic illness (HIV, Hep B/C, parasite, anemia, iron deficiency) or drug side effect. Alternately dry skin and a combination of harsh soaps and decreased humidity with winter can cause xerosis cutis and cause pruritus. Common medications that can cause pruritus include: Opioids, OCPs, erythromycin, Acetaminophen, ASA, and ADINA-Inhibitors - Discussed pruritus is likely exacerbated by her kidney disease - Referral to Neurology for consideration of alternative management options - Suggested she contact her oncologist to see if they have any suggestions - Continue Rx: Clobetasol solution daily as needed RTC: 6 months for psoriasis f/u and labs. Routed for scheduling. Note initiated by Rachna Llamas CMA. I, Rachna Llamas CMA, have performed the documentation for this encounter in the presence of and acting as a scribe for Anderson Zhou MD. I performed the services which were documented by the scribe, and I agree with the accuracy of the documentation in this encounter. Anderson Zhou MD Reviewed and signed by: Anderson Zhou MD Resident in Dermatology [facility] Patient seen and evaluated with staff systems security analyst: Isabel Flores MD Department of Dermatology [facility] * Isabel Flores MD - 10/20/2019 3:00 PM EDT I was the supervising physician working with dermatology resident Dr. Zhou in the dermatology clinic during this patient visit. The level of resident supervision for this patient visit was indirectsupervision with direct supervision immediately available. (definition: [facility] Policy Statement on Graduate Medical Education, Supervision of Graduate Medical Trainees) I was immediately available to Dr. Zhou for questions and discussion regarding this visit. I have reviewed his encounter note details and level of service. ISABEL FLORES MD Staff Physician documented in this encounter Plan of Treatment Upcoming Encounters Date Type Department Care Team (Late st Contact Info) Description 01/22/2024 10:30 AM EST Appointment Mammography/[place] [address] Ladi Mendosa MD [facility] H[place]ATOLOG[place] [address] 01/30/2024 11:30 AM EST Office Visit Dermatology at [facility] [address] [place] [address] Nilda Luis MD [facility] [place] [address] 02/15/2024 9:30 AM [place] [phone] [place] [address] Scheduled Referrals Name Type Priority Associated Diagnoses Orde r Schedule Referral to Neurology Outpatient Referral Routine Dysesthesia of scalp Ordered: 10/20/2019 documented as of this encounter Visit Diagnoses Diagnosis SK (seborrheic keratosis) Other seborrheic keratosis Psoriasis Other psoriasis Folliculitis Other specified disease of hair and hair follicles Pruritus Unspecified pruritic disorder Dysesthesia of scalp documented in this encounter Care Teams Data Science And Iot Manager Relationship Specialty Start Date End Date Trinh Coates MD [facility] [address] [facility] [address] [place] [address] PCP - General 01/11/10 documented as of this encounter
--- OUTSIDE RECORDS SUMMARY | 2023-09-07 11:26 | XMS_ITS | Encounter Summary ---
Author Organization [facility] Address [facility] [place] [address] Care Team Providers Care Vector Control Specialist Name Role Phone Trinh Coates MD Primary Care Provider [phone] Reason for Visit * Reason Onset Date Comments Medication Refill 05/18/2020 Encounter Details Date Type Department Care Team (Late st Contact Info) Description 05/18/2020 Refill Dermatology at [facility] [address] [place] [address] Nilda Luis MD [facility] [address] [place] [address] Psoriasis Social History Tobacco Use Types Packs/Day [...] Telephone Encounter - Cristina Gleason LPN - 05/18/2020 8:29 AM EDT Patient called and requests Stelara be sent to her specialty pharmacy. New order sent to Dr. Luis documented in this encounter Plan of Treatment Upcoming Encounters Date Type Department Care Team (Late st Contact Info) Description 01/22/2024 10:30 AM EST Appointment Mammography/[place] [phone] Ladi Mendosa MD [facility] HEMATOLOGY/[place] [address] 01/30/2024 11:30 AM EST Office Visit Dermatology at [facility] [address] [place] [phone] Nilda Luis MD [facility] [address] [place] [address] 02/15/2024 9:30 AM EST Appointment [place] [address] [place] [address] documented as of this encounter Visit Diagnoses Diagnosis Psoriasis Other psoriasis documented in this encounter Care Teams Vector Control Specialist Relationship Specialty Start Date End Date Trinh Coates MD [facility] [address] [place] [address] PCP - General 01/11/10 documented as of this encounter
--- OUTSIDE RECORDS SUMMARY | 2023-09-07 11:26 | XMS_ITS | Encounter Summary ---
Author Organization [facility] Address [facility] [place] [address] Care Team Providers Care Customer Relations Coordinator Name Role Phone Trinh Coates MD Primary Care Provider [phone] Reason for Visit * Reason Comments Follow-up Encounter Details Date Type Department Care Team (Late st Contact Info) Description 10/07/2020 1:15 PM EDT Office Visit Hematology [place] [address] Josias Barnett MD [facility] HEMATOLOGY/[place] [address] Shruthi Carlson MD [facility] HEMATOLOGY/[place] [address] Malignant neoplasm of upper-outer quadrant of left [...] Sign Reading Time Taken Comments Blood Pressure 145/95 10/07/2020 1:06 PM EDT Pulse 68 10/07/2020 1:06 PM EDT Temperature 36.8 ??C (98.2 ??F) 10/07/2020 1:06 PM ED T Respiratory Rate 20 10/07/2020 1:06 PM EDT Oxygen Saturation 97% 10/07/2020 1:06 PM EDT Inhaled Oxygen Concentration - - Weight 83.2 kg (183 lb 6.4 oz) 10/07/2020 1:06 P M EDT Height 153.1 cm (5' 0.28) 10/07/2020 1:06 PM ED T Body Mass Index 35.49 10/07/2020 1:06 PM EDT documented in this encounter Progress Notes * Josias Barnett MD - 10/07/2020 1:15 PM EDT Breast cancer Follow up HPI: Diagnosis of Invasive ductal carcinoma, left breast, in March 2017. 2.0 cm cancer, high-grade. ER/RI +++, HER-2/pat negative, 4/18 nodes (1/18 additional [...] back to tamoxifen, then back to anastrazole. PMH: Past Medical History: Diagnosis Date ??? Fibrocystic breast determined by biopsy ??? Hyperlipidemia ??? Hypertension ??? Impaired fasting glucose ??? Malignant neoplasm of upper-outer quadrant of left breast in female, estrogen receptor positive03/31/2017 ??? Obstructive sleep apnea on CPAP ??? Proteinuria No h/o thromboembolic events LMP was just prior to diagnosis DEXA 01/29/19 normal. Family Hx: There is family h/o breast cancer, as follows: Mother - in her 60's (?DCIS). Now A&W age 76. MAunt - at age 39; developed a contralateral BrCa at age 50. MCousin - at age 46. Alive, no testing Patient has a daughter and sister. There is also colon ca on her mother's side. Sept 2018 Genetic testing: [employer] Common Hereditary Cancers Panel showed no mutation was detected. This means that Wendy does not carry a mutation in the genes detectable by this test. The following genes were evaluated for sequence changes and exonic deletions/duplications: APC, AMAURY, AXIN2, BARD1, BMPR1A, BRCA1, BRCA2, BRIP1, CDH1, CDKN2A (p14ARF), CDKN2A (u43FYA3v), CHEK2, CTNNA1, DICER1, EPCAM (EPCAM: Deletion/duplication testing only (NM_[id number]), GREM1 (GREM1: Promoter region deletion/duplication testing only.), KIT, MEN1, MLH1, MSH2, MSH3, MSH6, MUTYH, NBN, NF1, PALB2, PDGFRA, PMS2, POLD1, POLE, PTEN, RAD50, RAD51C, RAD51D, SDHB, SDHC, SDHD, SMAD4, SMARCA4, STK11, TP53, TSC1, TSC 2, VHL. The following genes were evaluated for sequence changes only: HOXB13 (c.251G>A, p.Ovh47Jqw variant only), NTHL1 (NTHL1: Deletion/duplication analysis is not offered for this gene (NM_002528.6), and SDHA. A variant of uncertain significance in the AMAURY gene, specifically c.5727G>A (p.[id number]), was detected. Interval Hx/ROS: Prior switching between endocrine agents was because of issues with wt gain and irritability, whichare not of concern now. She however while on anastrazole began experiencing for the past 2 months total body aches, ariadna in hips and feet. She once again did a 'drug holiday' which helped, but within a week of restarting body aches returned. She also has some pain in her feet that seem to be a different issue as this didn't get better (will be seeing golf stud riveter). Reports no new problems with frequent headaches, double vision, cough, SOB at rest, bleeding, chronic heartburn or diarrhea. ROS otherwise neg. Exam No exam Assessment and Plan: 55 yo woman diagnosed in Mar 2017 with a high-grade, node-positive left breast cancer ER+/RI+/HER2-. She is s/p bilateral mastectomy, completed adjuvant chemo in October 2017. Given her LMP was right before chemo initiation, recommended adjuvant Tamoxifen, which she started March 2017 after radiation completion. 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 Previously, given side effects from tamoxifen, and post-menopausal status confirmed with FSH/E2, tried switch to anastrazole, but requested return to tamoxifen b/o side effects. When seen in December2019, since this did not improve/change things, she switched back to anastrazole. This ultimately did not resolve things. Today we discussed switching to a different AI. Reviewed aromasin as an option and she is willing/prepared to give this a try. Script sent to local pharmacy. Total time of visit, with >50% in [id number] counselin min. RTC 3 mo. documented in this encounter Plan of Treatment Upcoming Encounters Date Type Department Care Team (Late st Contact Info) Description 01/22/2024 10:30 AM EST Appointment Mammography/[place] [phone] Ladi Mendosa MD [facility] DR [place]EMATOLOGY/[place] [address] 01/30/2024 11:30 AM EST Office Visit Dermatology at [address] [phone] Nilda Luis MD [facility] [address] [place] [address] 02/15/2024 9:30 AM EST Appointment [place] [address] Joanna Watts MD [place], [place] [phone] documented as of this encounter Visit Diagnoses Diagnosis Malignant neoplasm of upper-outer quadrant of left breast in female, estrogen receptor positive documented in this encounter Care Teams Customer Relations Coordinator Relationship Specialty Start Date End Date Trinh Coates MD [address] [place] [address] PCP - General 01/11/10 documented as of this encounter
--- OUTSIDE RECORDS SUMMARY | 2023-09-07 11:26 | XMS_ITS | Encounter Summary ---
Author Organization [facility] Address [facility] [place] [address] Care Team Providers Care Landfill Gas Collection Operator Name Role Phone Trinh Coates MD Primary Care Provider [phone] Encounter Details Date Type Department Care Team (Latest Contact Info) Description 07/29/2020 11:15 AM EDT TH Visit (TeleHealth) [place]ematology [place] [address] Josias Barnett MD [facility] HEMATOLOGY/[place] [address] Malignant neoplasm of upper-outer quadrant of left [...] as of this encounter Progress Notes * Josias Barnett MD - 07/29/2020 11:15 AM EDT Breast cancer Follow up HPI: Diagnosis of Invasive ductal carcinoma, left breast, in March 2017. 2.0 cm cancer, high-grade. ER/AK +++, HER-2/pat negative, 4/18 nodes (1/18 additional [...] her mother's side. Oct 2017 Genetic testing: [employer] Common Hereditary Cancers Panel showed no mutation was detected. This means that Wendy does not carry a mutation in the genes detectable by this test. The following genes were evaluated for sequence changes and exonic deletions/duplications: APC, AMAURY, AXIN2, BARD1, BMPR1A, BRCA1, BRCA2, BRIP1, CDH1, CDKN2A (p14ARF), CDKN2A (t62OJZ2x), CHEK2, CTNNA1, DICER1, EPCAM (EPCAM: Deletion/duplication testing only (NM_[id number]), GREM1 (GREM1: Promoter region deletion/duplication testing only.), KIT, MEN1, MLH1, MSH2, MSH3, MSH6, MUTYH, NBN, NF1, PALB2, PDGFRA, PMS2, POLD1, POLE, PTEN, RAD50, RAD51C, RAD51D, SDHB, SDHC, SDHD, SMAD4, SMARCA4, STK11, TP53, TSC1, TSC 2, VHL. The following genes were evaluated for sequence changes only: HOXB13 (c.251G>A, p.Wpl47Kxp variant only), NTHL1 (NTHL1: Deletion/duplication analysis is not offered for this gene (NM_002528.6), and SDHA. A variant of uncertain significance in the AMAURY gene, specifically c.5727G>A (p.[id number]), was detected. Interval Hx/ROS: Prior switching between endocrine agents was because of issues with wt gain and irritability, whichare not of concern now. She however while on anastrazole began experiencing for the past 2 months total body aches, ariadna in hips and feet. We had her start a 'drug holiday' 2 wk ago, and today she reports some lessening, but still problematic. Persistent unchanged neuropathy in feet & toes - Still taking gabapentin (taking 300mg bid now). Reports no new problems with frequent headaches, doublevision, cough, SOB at rest, bleeding, chronic heartburn or diarrhea. ROS otherwise neg. Exam No exam Assessment and Plan: 55 yo woman diagnosed in Mar 2017 with a high-grade, node-positive left breast cancer ER+/AK+/HER2-. She is s/p bilateral mastectomy, completed adjuvant [...] improve/change things, she switched back to anastrazole. Now with aches c/w anastrazole side effect. She will continue her holiday for 2 more weeks and then let us know how she feels. If significantly better, will resume. If no better, will refer back to PCP to work up these sxs as unlikely all due to the AI. If they return after restarting the anastrazole, will consider a switch to a different AI. RTC 6 mo. documented in this encounter Plan of Treatment Upcoming Encounters Date Type Department Care Team (Late st Contact Info) Description 01/22/2024 10:30 AM EST Appointment Mammography[place] [address] Ladi Mendosa MD [facility] HEMATOLOGY/[place] [address] 01/30/2024 11:30 AM EST Office Visit Dermatology at [facility] [address] [place] [phone] Nilda Luis MD [facility] [address] [place] [address] 02/15/2024 9:30 AM EST Appointment Radiology at [place] [phone] [place] [address] documented as of this encounter Visit Diagnoses Diagnosis Malignant neoplasm of upper-outer quadrant of left breast in female, estrogen receptor positive documented in this encounter Care Teams Landfill Gas Collection Operator Relationship Specialty Start Date End Date Trinh Coates MD [facility] [address] [address] PCP - General 01/11/10 documented as of this encounter
--- OUTSIDE RECORDS SUMMARY | 2023-09-07 11:26 | XMS_ITS | Encounter Summary ---
Author Organization [facility] Address [facility] [place] [address] Care Team Providers Care Pairer Name Role Phone Trinh Coates MD Primary Care Provider [phone] Reason for Visit * Reason Onset Date Comments TeleHealth 01/12/2020 Encounter Details Date Type Department Care Team (Late st Contact Info) Description 01/12/2020 [place] [address] Antwon Dowell MD [facility] [place] [address] TeleHealth Social History Tobacco Use Types Packs/Day Years [...] encounter Miscellaneous Notes * Telephone Encounter - Nallely Larsen RN - 01/12/2020 3:54 PM EST Unable to reach this patient by phone to review medications and allergies prior to upcoming tele-appointment scheduled with Neurology provider. No message left. documented in this encounter Plan of Treatment Upcoming Encounters Date Type Department Care Team (Late st Contact Info) Description 01/22/2024 10:30 AM EST Appointment Mammography/[place] [address] Ladi Mendosa MD [facility] HEMATOLOGY/[place] [address] 01/30/2024 11:30 AM EST Office Visit Dermatology at [place] [address] [place] [phone] Nilda Luis MD [facility] [place] [address] 02/15/2024 9:30 AM EST Appointment Radiology at [place] [phone] [place] [address] documented as of this encounter Visit Diagnoses Not on filedocumented in this encounter Care Teams Pairer Relationship Specialty Start Date End Date Trinh Coates MD [facility] [address] [place] [address] PCP - General 01/11/10 documented as of this encounter
--- OUTSIDE RECORDS SUMMARY | 2023-09-07 11:26 | XMS_ITS | Encounter Summary ---
[place] [address] Care Team Providers Care Wind Instrument Repairer Name Role Phone Trinh Coates MD Primary Care Provider [phone] Reason for Visit * Reason Onset Date Comments Follow-up 07/13/2020 AI s/s Encounter Details Date Type Department Care Team (Late st Contact Info) Description 07/13/2020 Telephone Hematology [place] [phone] Arpita Ordonez RN Follow-up (AI s/s) Social History Tobacco Use Types Packs/Day Years [...] Telephone Encounter - Arpita Ordonez RN - 07/13/2020 8:43 AM EDT Images from the original note were not included. Message received from medical records secretary: Lakia Alfaro [facility] Hem Onc Triage Breast Call back [phone] Wendy called with c/o joint, muscle, overall body aches and pains. She met with Dr. Choi yesterday who told her to reach out to us as it may be s/e from her anastrozole. Please call mobile number today as Wendy will not be home. Josias Barnett MD Sent: SunJuly 13, 2020 ??7:27 AM To: Arpita Ordonez, RN Please have her take a 3-4 wk holiday, then let us know how she feels. Thx Call placed to patient. We discussed how the AI holiday works and why we do it for patients from time to time over their treatment. Patient agrees to the 3-4 week holiday which will start tomorrow 07/14. She has an appointment 07/[address] Barnett know how she is doing. Triage Rnn to follow up in 3 weeks by phone. documented in this encounter Plan of Treatment Upcoming Encounters Date Type Department Care Team (Late st Contact Info) Description 01/22/2024 10:30 AM EST Appointment Mammography/[place] [phone] Ladi Mendosa MD [facility] HEMATOLOGY/[place] [address] 01/30/2024 11:30 AM EST Office Visit Dermatology at [address] [address] Nilda Luis MD [facility] [address] [place] [address] 02/15/2024 9:30 AM EST [place] [address] [place] [address] documented as of this encounter Visit Diagnoses Not on filedocumented in this encounter Care Teams Wind Instrument Repairer Relationship Specialty Start Date End Date Trinh Coates MD [facility] [address] [place] [address] PCP - General 01/11/10 documented as of this encounter
--- OUTSIDE RECORDS SUMMARY | 2023-09-07 11:26 | XMS_ITS | Encounter Summary ---
Author Organization [facility] Address [facility] [place] [address] Care Team Providers Care Checker Product Design Name Role Phone Trinh Coates MD Primary Care Provider [phone] Reason for Referral * Diagnostic Test (Routine) - Closed Specialty Diagnoses / Procedures Referred By Diamante marin Referred To Contact Radiology Diagnoses Malignant neoplasm of upper-outer quadrant of left breast in female, estrogen receptor positive Procedures DXA Central Spine, Hip, and/or Whole Body (Generic) Piter Barnett MD [facility] HEMATOLOGY/[place] [address] [place] [address] Referral ID Status Reason Start Date Expiration Date V isits Requested Visits Authorized [id number] Closed Specialty Service Requested 02/24/2021 08/24/2022 1 1 Reason for Visit * Reason Comments Follow-up Encounter Details Date Type Department Care Team (Late st Contact Info) Description 02/24/2021 10:45 AM EST Office Visit Hematology [place] [address] Piter Barnett MD [facility] HEMATOLOGY/[place] [address] Malignant neoplasm of upper-outer quadrant of left [...] Sign Reading Time Taken Comments Blood Pressure 144/93 02/24/2021 10:42 AM EST Pulse 60 02/24/2021 10:42 AM EST Temperature 36.7 ??C (98.1 ??F) 02/24/2021 10:[address] Respiratory Rate 18 02/24/2021 10:42 AM EST Oxygen Saturation 97% 02/24/2021 10:42 AM EST Inhaled Oxygen Concentration - - Weight 85.5 kg (188 lb 9.6 oz) 02/24/2021 10:42 AM EST Height 153.2 cm (5' 0.3) 02/24/2021 10:42 AM ES T Body Mass Index 36.47 02/24/2021 10:42 AM EST documented in this encounter Progress Notes * Piter Barnett MD - 02/24/2021 10:45 AM EST Breast cancer Follow up HPI: Diagnosis of Invasive ductal carcinoma, left breast, in March 2017. 2.0 cm cancer, high-grade. ER/MN +++, HER-2/pat negative, 4/18 nodes (1/18 additional [...] joint aches on anastrozole. PMH: Past Medical History: Diagnosis Date ??? [...] her mother's side. Oct 2017 Genetic testing: [employer]'s Common Hereditary Cancers Panel showed no mutation was detected. This means that Wendy does not carry a mutation in the genes detectable by this test. The following genes were evaluated for sequence changes and exonic deletions/duplications: APC, AMAURY, AXIN2, BARD1, BMPR1A, BRCA1, BRCA2, BRIP1, CDH1, CDKN2A (p14ARF), CDKN2A (r33QKG5p), CHEK2, CTNNA1, DICER1, EPCAM (EPCAM: Deletion/duplication testing only (NM_002354.2), GREM1 (GREM1: Promoter region deletion/duplication testing only.), KIT, MEN1, MLH1, MSH2, MSH3, MSH6, MUTYH, NBN, NF1, PALB2, PDGFRA, PMS2, POLD1, POLE, PTEN, RAD50, RAD51C, RAD51D, SDHB, SDHC, SDHD, SMAD4, SMARCA4, STK11, TP53, TSC1, TSC 2, VHL. The following genes were evaluated for sequence changes only: HOXB13 (c.251G>A, p.Hdb40Wgo variant only), NTHL1 (NTHL1: Deletion/duplication analysis is not offered for this gene (NM_002528.6), and SDHA. A variant of uncertain significance in the AMAURY gene, specifically c.5727G>A (p.Dnr1163Rjf), was detected. Interval Hx/ROS: Prior switching between [...] heartburn or diarrhea. ROS otherwise neg. Exam Visit Vitals BP 144/93 (Patient Position: Sitting) Pulse 60 Temp 36.7 ??C (98.1 ??F) (Temporal) Resp 18 Ht 153.2 cm (5' 0.3) Wt 85.5 kg (188 lb 9.6 oz) SpO2 97% BMI 36.47 kg/m?? PERRL, EOMi, sclera nonicteric No BLANCA No spine tenderness S/P bilateral mastectomy/recon; no CW nodules Chest clear to A and P CV: RRR, no m/ Abd: No HSM, NT, +BS Ext: no c.c.e Neuro grossly non-focal Assessment and Plan: 55 yo woman diagnosed in Mar 2017 with a high-grade, node-positive left breast cancer ER+/MN+/HER2-. She is s/p bilateral mastectomy, completed adjuvant [...] anastrazole. This ultimately did not resolve things. Last Sep switched to aromasin and tolerating this much better. Will continue. Is due for a DEXA, which we'll do at her next f/u appointment in 6 mo. All questions answered. documented in this encounter Plan of Treatment Upcoming Encounters Date Type Department Care Team (Late st Contact Info) Description 01/22/2024 10:30 AM EST Appointment Mammography[place] [address] Ladi Mendosa MD [facility] DR HEMATOLOGY/[place] [address] 01/30/2024 11:30 AM EST Office Visit Dermatology at [facility] [address] [place] [phone] Nilda Luis MD [facility] DR [address] AGUILAR-[place] [address] 02/15/2024 9:30 AM [place] [address] [place] [address] documented as of this encounter Results * DXA Central Spine, [...] BMD measurements and plots are available in [employer] under the imaging tab. Paper copies will be sent to providers without [employer] access. If you have received this report without the data sheet and do not have access to [employer], please contact Radiology Master Dyer at [phone] Sunday thru Sunday 8am-4pm. ? Bone Density Report ? Name: ?Wendy Sandoval Age: ? 56 Sex: ? Female Ethnicity: ? White Date of : 1965 Referring Provider: PITER BARNETT Study: Bone densitometry was performed. Exam Date: November 15, 2021 Accession number: [id number] Bone Density: Region ?BMD ?T-score ??Z-score ? [...] who have questions please contact the health rn urgent care that requested your imaging first. ? Electronically signed by: Ophelia Carver MD, [facility] ([phone]), at 11/15/2021 1:36 PM Narrative 11/15/2021 1:36 PM EDT EXAMINATION: DXA CENTRAL SPINE, HIP, AND/OR WHOLE BODY (GENERIC) CLINICAL HISTORY: ??56 years Female Aromatase inhibitor therapy for BrCa (as entered by ordering provider) TECHNIQUE: Scans were acquired at the lumbar spine, distal right forearm and left hip using the [employer] A system. FINDINGS: Femoral neck BMD: 0.723 g/cm2 Lowest T-score at the diagnostic region of interest: T-score: -1.1, BUSHRA: Femoral neck, WHO diagnosis: osteopenia. ......... Comparison......... Baseline scan:January 29, 2019 Total spine: Compared to the baseline, 0.033 g/cm2 (3 %) increase. At [facility], least significant change for bone mineral density measurements at the spine region of interest: 0.031 g/cm2 Total hip: Compared to the baseline, -0.042 g/cm2 (5 %) decrease. At [facility], least significant change for bone mineral density measurements at the left total hip region of interest: 0.025 g/cm2 Procedure Note Ophelia Carver MD - 11/15/2021 EXAMINATION: DXA CENTRAL SPINE, HIP, AND/OR WHOLE BODY (GENERIC) CLINICAL HISTORY: 56 years Female Aromatase inhibitor therapy for BrCa(as entered by ordering provider) TECHNIQUE: Scans were acquired at the lumbar spine, distal right forearmand left hip using the [employer]Queue A system. FINDINGS: Femoral neck BMD: 0.723 g/cm2 Lowest T-score at the diagnostic region of interest: T-score: -1.1, BUSHRA: Femoral neck, WHO diagnosis: osteopenia. ......... Comparison......... Baseline scan:January 29, 2019 Total spine: Compared to the baseline, 0.033 g/cm2 (3 %) increase. At [facility], least significant change for bonemineral density measurements at the spine region of interest: 0.031 g/cm2 Total hip: Compared to the baseline, -0.042 g/cm2 (5 %) decrease. At [facility], least significant change for bonemineral density measurements [...] BMD measurements and plots are available in [employer] the imaging tab. Paper copies will be sent to providers without [employer] access.If you have received this report without the data sheet and do not haveaccess to [employer], please contact Radiology Master Dyer at [phone] Sunday thruFriday 8am-4pm. Bone Density Report Name: Wendy Sandoval Age: 56 Sex: Female Ethnicity: White Date of : 1965 Referring Provider: PITER BARNETT Study: Bone densitometry was performed. Exam Date: November 15, 2021 Accession number: [id number] Bone Density: Region BMD T-score Z-score AP [...] patients who have questions please contactthe health rn urgent care that requested your imaging first. Electronically signed by: Ophelia Carver MD, [facility]([phone]), at 11/15/2021 1:36 PM Piter Barnett MD IMG DEXA ORDERABLES documented in this encounter Visit Diagnoses Diagnosis Malignant neoplasm of upper-outer quadrant of left breast in female, estrogen receptor positive Malignant neoplasm of upper-outer quadrant of left breast in female, estrogen receptor positive documented in this encounter Care Teams Checker Product Design Relationship Specialty Start Date End Date Trinh Coates MD [address] [place] [address] PCP - General 01/11/10 documented as of this encounter
--- OUTSIDE RECORDS SUMMARY | 2023-09-07 11:26 | XMS_ITS | Encounter Summary ---
Author Organization [facility] Address [facility] [place] [address] Care Team Providers Care Gas Plant Operator Name Role Phone Trinh Coates MD Primary Care Provider [phone] Encounter Details Date Type Department Care Team (Latest Contact Info) Description 09/19/2019 10:00 AM EDT Laboratory Appointment Lab [address] [place] [phone] Hypertension, unspecified type Social History Tobacco Use [...] 01/22/2024 10:30 AM EST Appointment Mammography/[place] [phone] Ladi Mendosa MD [facility] HEMATOLOGY/[place] [address] 01/30/2024 11:30 AM EST Office Visit Dermatology at [facility] [address] [place] [phone] Nilda Luis MD [facility] [address] [place] [address] 02/15/2024 9:30 AM EST Appointment [place] [phone] [place] [address] documented as of this encounter Procedures Procedure Name Priority Date/Time Associated Diagnosis Comments MAGNESIUM Routine 09/19/2019 10:05 AM EDT HC VENIPUNCTURE Routine 09/19/2019 10:05 AM EDT Hypertension, unspecified type documented in this encounter Results * Magnesium (09/19/2019 10:05 AM EDT) Magnesium 0.86 0.69 - 1.07 mmol/L [facility] Blood specimen (specimen) Venous Draw / Unknown 09/19/2019 10:05 AM EDT 09/19/2019 10:28 AM EDT Narrative Resulting Agency Comment Spec In Lab Zackery Dawson MD CHEMISTRY ORDERABLES [facility] [place] [address] * (ABNORMAL) Basic Metabolic Panel (non-fasting) (09/19/2019 10:05 AM EDT) Glucose Lvl 96 65 - 199 mg/dL [facility] Comment:Diabetes: >=200 mg/d L plus symptoms BUN 37(H) 8 - 18 mg/dL [facility] Creatinine 1.65(H) 0.70 - 1.20 mg/dL [facility] Sodium 141 135 - 145 mmol/L [facility] Potassium 4.9 3.5 - 5.0 mmol/L [facility] Comment: Please note: ??Patients with WBC >100,000 may have falsely elevated Potassium levels. ??For accurate Potassium quantification in these patients send serum separator tube (gold top) for subsequent determinations. ??Contact the Clinical Chemistry Laboratory if there are any questions. Chloride 107 98 - 107 mmol/L [facility] CO2 22 22 - 31 mmol/L [facility] Anion Gap 12 5 - 15 mmol/L [facility] Calcium 9.3 8.5 - 10.5 mg/dL [facility] Estimated GFR 34(L) >=60 mL/min/1. 73 m?? [facility] Comment: The eGFR was calculated using the CKD-EPI equation. As with all creatinine based estimates of kidney function, eGFR values calculated with the CKD-EPI equation are not accurate in patients with acute kidney failure, extremes of body mass or the acutely ill. [email or web address] ENIDnkf eGFR 40(L) >=60 mL/min/1. 73 m?? [facility] Comment: The eGFR was calculated using the CKD-EPI equation. As with all creatinine based estimates of kidney function, eGFR values calculated with the CKD-EPI equation are not accurate in patients with acute kidney failure, extremes of body mass or the acutely ill. [email or web address] Blood specimen (specimen) 09/19/2019 10:05 AM EDT 09/19/2019 10:20 AM EDT Narrative Resulting Agency Comment Spec In Lab Zackery Dawson MD CHEMISTRY ORDERABLES [facility] [place] [address] documented in this encounter Visit Diagnoses Diagnosis Hypertension, unspecified type documented in this encounter Care Teams Gas Plant Operator Relationship Specialty Start Date End Date Trinh Coates MD [address] [place] [address] PCP - General 01/11/10 documented as of this encounter
--- OUTSIDE RECORDS SUMMARY | 2023-09-07 11:26 | XMS_ITS | Encounter Summary ---
Author Organization [facility] Address [facility] [place] [address] Care Team Providers Care Rubber And Pounder Name Role Phone Trinh Coates MD Primary Care Provider [phone] Reason for Visit * Consultation (Routine) - Closed Specialty Diagnoses / Procedures Referred By Diamante marin Referred To Contact Dermatology Diagnoses Disorder of the skin and subcutaneous tissue, unspecified Lesion - on face Trinh Coates MD [facility] [address] [place] [address] [facility] Dermatology [address] [place] [address] Referral ID Status Reason Start Date Expiration Date V isits Requested Visits Authorized [id number] Closed Consult, Test & Treat Connection Center PCP Updated and/or Approved 01/31/2021 01/31/2022 6 6 Encounter Details Date Type Department Care Team (Late st Contact Info) Description 05/10/2021 10:00 AM EDT Office Visit Dermatology at [facility] [address] [place] [address] Jay Luis MD [facility] [address] [place] [address] Psoriasis; Actinic keratoses; Milia; Sebaceous hyperplasia; High risk medication use Social History Tobacco [...] Progress Notes * Jay Luis MD - 05/10/2021 10:00 AM EDT Images from the original note were not included. DEPARTMENT OF DERMATOLOGY Medical Dermatology Clinic Provider: JAY LUIS MD Patient's preferred name Wendy Preferred contact method for results [x]Phone []myD-H []Letter Detailed phone message OK? Yes Are there any other people with whom we may discuss your care? Yes Past Medical History Date, location, treatment Melanoma No Dysplastic nevi Yes - 09/08/2013: left neck, Atypical lentiginous junctional melanocytic proliferation, S/P WLE 10/10/2013 SCC No BCC No AKs No UV Exposure & Protection Other relevant past medical history Psoriasis (since age 16), started Stelara 09/12/18; previous treatments: triamcinolone ointment, calcipotriene, clobetasol cream,??MG217 Family History Details Melanoma No NMSC No Other relevant family history Yes - Mother: Psoriasis Social History Occupation: Hobbies: Other: Pre-Procedure Questions Details Allergy to lidocaine, epinephrine, Dermabond, chlorhexidine, or adhesives No Bleeding disorder or blood thinners No Pacemaker, defibrillator, deep brain stimulator, cochlear implant No History of Present Illness: Wendy Sandoval is a 55 y.o. Patient returns to clinic today for FSE and to discuss the following - - Psoriasis patient reports she is doing well, she is still taking Rx Stelara - A lesion on the face that PCP recommended she gets looked, patient reports it has been present for a long time Last visit at Dermatology: 05/04/2020 Last visit with this provider: 05/04/2020 Medications: Reviewed in eD-H Allergies: Reviewed in eD-H Skin Examination: Full skin examination: Patient asked to undress to their comfort level. Verbalized that the provider???s preference is that the patient remove all clothing and that the provider will not examine areas patient elects to keep covered. Patient elects to keep underwear on and have the following examined: scalp, hair, face, ears, neck, chest, axillae, abdomen, back, and upper and lower extremities. Genitalia and buttocks were not examined. Assessment/Plan A. Psoriasis - one pink scaly plaque on the left knee upon visit today - Well controlled. - Continue Rx ustekinumab (Stelara) 45mg/0.5mL pen or syringe: inject 45mg (1 pen/syringe) SQ every12 weeks. - Reviewed necessity of lab monitoring and routine follow ups. - Labs: QuantGold, CBC, CMP B. Actinic Keratosis - Ill-defined gritty papule on the right cheek . - Explained premalignant potential of these lesions. - Discussed treatment with cryotherapy. Patient elects to proceed with cryotherapy today. - Instructed patient to return to clinic for re-evaluation if lesion(s) does not resolve as expected with this treatment. Procedure: Destruction of lesion(s) with cryotherapy (LN2). Location(s): As noted above. Number: 1 Discussed procedure and expectations, including risks and benefits. Verbal consent obtained. Treated with LN2. There were no complications; Patient tolerated the procedure well. Post-procedure expectations and wound care reviewed. C. Sebaceous hyperplasia-yellow papules with crown of vessels and central dell on dermoscopy D. Venous Betancourt - Blue-purple vascular macule that blanches upon diascopy on the lip. - Discussed benign nature of lesion and provided reassurance. No treatment necessary at this time. E. Milia - 0.1 cm firm, round, white subcutaneous papule on the right ear. - Discussed benign nature of lesion and provided reassurance. No treatment necessary. Other: ??? N/A RTC: 1 year for FSE []Note routed to certified legal secretary specialist [x]Recall placed in scheduling system []Appointment scheduled at checkout Scribe attestation: RANDY Vaughn has performed the documentation for this encounter in the presence of and acting as a scribe for JAY LUIS MD. I performed the above scribed service and agree with the accuracy of the documentation in this encounter. Reviewed and signed by: JAY LUIS MD Dermatology [facility] * Jay Luis MD - 05/10/2021 10:00 AM EDT Just a note to let you know I reviewed your recent labs, and it is OK to continue the Stela. Jay Luis documented in this encounter Plan of Treatment Upcoming Encounters Date Type Department Care Team (Late st Contact Info) Description 01/22/2024 10:30 AM EST Appointment Mammography/[place] [phone] Ladi Mendosa MD [facility] HEMATOLOGY/[place] [address] 01/30/2024 11:30 AM EST Office Visit Dermatology at [address] [address] Jay Luis MD [facility] [place] [address] 02/15/2024 9:30 AM EST [place] [address] [place] [address] documented as of this encounter Procedures Procedure Name Priority Date/Time Associated Diagnosis Comments HC VENIPUNCTURE Routine 05/10/2021 10:45 AM EDT High risk medication use HEMOGRAM Routine 05/10/2021 10:45 AM EDT High risk medication use DIFFERENTIAL, AUTOMATED Routine 05/10/2021 10:45 AM EDT High risk medication use HC CBC,PLT & AUTO DIFF Routine 10:45 AM EDT High risk medication use COMPREHENSIVE METABOLIC PANEL (NON-FASTING) Routine 05/10/2021 10:45 AM EDT High risk medication use documented in this encounter Results * (ABNORMAL) Differential, Automated (05/10/2021 10:45 AM EDT) Neutrophils % 63.6 % [facility] Neutr Abs (ANC) 5.56 1.70 - 6.10 x10(3)/[facility] Lymphocytes % 18.2 % [facility] Lymphocytes Abs 1.6 0.9 - 3.2 x10(3)/[facility] Monocytes % 11.3 % [facility] Monocyte Abs 1.0(H) 0.3 - 0.9 x10(3)/[facility] Eosinophils % 4.7 % [facility] Eosinophils Abs 0.4 0.0 - 0.4 x10(3)/[facility] Basophils % 1.7 % [facility] Basophils Abs 0.2(H) 0.0 - 0.1 x10(3)/[facility] Immature Gran % 0.50 % [facility] Comment: Immature granulocytes(IG's)percentage and absolute count will include metamyelocytes, myelocytes, and promyelocytes. Blood smears from CBCs yielding IG's will be scanned manually for concordance. If this scan disagrees with the automated IG or if promyelocytes are noted, a manual differential will be performed. Nova Gran Abs 0.04 0.00 - 0.04 x10(3)/[facility] Blood 05/10/2021 10:4 5 AM EDT 05/10/2021 1:04 PM EDT Narrative Resulting Agency Comment Spec In Lab Jay Luis MD HEMATOLOGY ORDERABL ES [facility] [place] [address] * (ABNORMAL) Hemogram (05/10/2021 10:45 AM EDT) [facility] WBC 8.7 4.0 - 9.5 x10(3)/[facility] RBC 4.54 4.00 - 5.21 x10(6)/[facility] Hemoglobin 14.0 11.7 - 15.5 g/dL [facility] Hematocrit 42.9 35.7 - 45.8 % [facility] MCV 94.5(H) 82.6 - 94.4 fL [facility] MCH 30.8 27.1 - 32.0 pg [facility] MCHC 32.6 31.7 - 35.0 g/dL [facility] Platelets 318 145 - 357 x10(3)/[facility] RDWSD 47.3(H) 37.0 - 46.0 [facility] RDWCV 13.6 11.5 - 14.1 % [facility] MPV 9.9 7.6 - 12.9 [facility] nRBC % Auto 0.0 % [facility] nRBC Abs Auto 0.000 0.000 - 0.000 x10(3)/[facility] Blood 05/10/2021 10:4 5 AM EDT 05/10/2021 1:04 PM EDT Narrative Resulting Agency Comment Spec In Lab Jay Luis MD HEMATOLOGY ORDERABL ES [facility] [place] [address] * QuantiFERON-TB Gold (05/10/2021 10:45 AM EDT) Pathologist [facility] QFT Nil 0.037 IU/mL [facility] QFT TB Ag1-Nil 0.010 IU/mL [facility] QFT TB Ag2-Nil 0.021 IU/mL [facility] QFT Mitogen-Nil 9.963 IU/mL [facility] Quantiferon [...] factors. [facility] Blood 05/10/2021 10:4 5 AM EDT 05/12/2021 6:45 AM EDT Narrative Resulting Agency Comment Spec In Lab Jay Luis MD CHEMISTRY ORDERABLE S [facility] [place] [address] * (ABNORMAL) Comprehensive metabolic panel (non-fasting) (05/10/2021 10:45 AM EDT) Glucose Lvl 90 65 - 199 mg/dL [facility] Comment:Diabetes: >=200 mg/d L plus symptoms BUN 27(H) 8 - 18 mg/dL [facility] Creatinine 1.47(H) 0.70 - 1.20 mg/dL [facility] Sodium 139 135 - 145 mmol/L [facility] Potassium 4.3 3.5 - 5.0 mmol/L [facility] Comment: Please note: ??Patients with WBC >100,000 may have falsely elevated Potassium levels. ??For accurate Potassium quantification in these patients send serum separator tube (gold top) for subsequent determinations. ??Contact the Clinical Chemistry Laboratory if there are any questions. Chloride 108(H) 98 - 107 mmol/L [facility] CO2 23 22 - 31 mmol/L [facility] Anion Gap 8 5 - 15 mmol/L [facility] Calcium 9.1 8.5 - 10.5 mg/dL [facility] Total Protein 6.8 6.1 - 8.0 g/dL [facility] Albumin 4.2 3.2 - 5.2 g/dL [facility] AST 15 0 - 30 unit/L [facility] ALT 17 0 - 30 unit/L [facility] Alk Phos 116(H) 35 - 105 unit/L [facility] Total Bilirubin 0.4 0.2 - 1.3 mg/dL [facility] Estimated GFR 39(L) >=60 mL/min/1. 73 m?? [facility] Comment: This patient? s estimated glomerular filtration rate (eGFR) is between 39 mL/min/1.73 m2 (patients with less muscle mass) and 45 mL/min/1.73 m2 (patients with more muscle mass) [...] and symptoms in addition to eGFR. Blood 05/10/2021 10:4 5 AM EDT 05/10/2021 1:06 PM EDT Narrative Resulting Agency Comment Spec In Lab Jay Luis MD CHEMISTRY ORDERABLE S [facility] [place] [address] documented in this encounter Visit Diagnoses Diagnosis Psoriasis Other psoriasis Actinic keratoses Actinic keratosis Milia Sebaceous cyst Sebaceous hyperplasia Other specified disease of sebaceous glands High risk medication use Encounter for long-term (current) use of other medications documented in this encounter Care Teams Rubber And Pounder Relationship Specialty Start Date End Date Trinh Coates MD [address] [place] [address] PCP - General 01/11/10 documented as of this encounter
--- OUTSIDE RECORDS SUMMARY | 2023-09-07 11:26 | XMS_ITS | Encounter Summary ---
Author Organization [facility] [place] [address] Care Team Providers Care Street Cleaning Equipment Operator Name Role Phone Trinh Coates MD Primary Care Provider [phone] Reason for Visit * Reason Comments Medication Refill Encounter Details Date Type Department Care Team (Late st Contact Info) Description 03/03/2020 Refill Dermatology at [facility] [address] [place] [address] [facility] [address] [place] [address] Psoriasis Social History Tobacco Use Types Packs/Day [...] 01/22/2024 10:30 AM EST Appointment Mammography/[place] [address] [facility] HEMATOLOGY/[place] [address] 01/30/2024 11:30 AM EST Office Visit Dermatology at [facility] [address] [place] [address] [facility] [address] [place] [address] 02/15/2024 9:30 AM EST [place] [phone] [place] [address] documented as of this encounter Visit Diagnoses Diagnosis Psoriasis Other psoriasis documented in this encounter Care Teams Street Cleaning Equipment Operator Relationship Specialty Start Date End Date Trinh Coates MD [address] [place] [address] PCP - General 01/11/10 documented as of this encounter
--- OUTSIDE RECORDS SUMMARY | 2023-09-07 11:26 | XMS_ITS | Encounter Summary ---
Author Organization [facility] Address [facility] [place] [address] Care Team Providers Care Denitrator Operator Name Role Phone Trinh Coates MD Primary Care Provider [phone] Reason for Visit * Reason Comments Follow-up Encounter Details Date Type Department Care Team (Latest Contact Info) Description 01/07/2020 11:30 AM EST Office Visit Hematology [place] [address] Josias Barnett MD [facility] [address] [place]EMATOLOGY/[place] [address] Malignant neoplasm of upper-outer quadrant of left breast in female, estrogen receptor positive; Neuropathy due to chemotherapeutic drug Social History Tobacco Use Types Packs/Day Years [...] Sign Reading Time Taken Comments Blood Pressure 139/90 01/07/2020 11:11 AM EST Pulse 65 01/07/2020 11:11 AM EST Temperature 36.9 ??C (98.4 ??F) 01/07/2020 11:[address] Respiratory Rate 16 01/07/2020 11:11 AM EST Oxygen Saturation 98% 01/07/2020 11:11 AM EST Inhaled Oxygen Concentration - - Weight 85.5 kg (188 lb 6.4 oz) 01/07/2020 11:11 AM EST Height 158 cm (5' 2.21) 01/07/2020 11:11 AM EST Body Mass Index 34.23 01/07/2020 11:11 AM EST documented in this encounter Progress Notes * Josias Barnett MD - 01/07/2020 11:30 AM EST Breast cancer Follow up HPI: Diagnosis of Invasive ductal carcinoma, left breast, in March 2017. 2.0 cm cancer, high-grade. ER/NE +++, HER-2/pat negative, 4/18 nodes (1/18 additional nodes with ITC). LVI negative. S/P left MRM and SALVADOR recon. S/P right prophylactic MRM and deep reconstruction, pathology benign. 07/20/17: Started adjuvant chemotherapy with dose-dense AC. 10/04/17: Transitioned to dose-dense Taxol adjuvant chemo. Completed 11/15/17. Completed radiation therapy at the end of Feb. March 2018 started tamoxifen. Switched to anastrazole, then back to tamoxifen since last seen PMH: Past Medical History: Diagnosis Date ??? [...] her mother's side. Oct 2017 Genetic testing: [employer] Common Hereditary Cancers Panel showed no mutation was detected. This means that Wendy does not carry a mutation in the genes detectable by this test. The following genes were evaluated for sequence changes and exonic deletions/duplications: APC, AMAURY, AXIN2, BARD1, BMPR1A, BRCA1, BRCA2, BRIP1, CDH1, CDKN2A (p14ARF), CDKN2A ([id number]), CHEK2, CTNNA1, DICER1, EPCAM (EPCAM: Deletion/duplication testing only ([id number]), GREM1 (GREM1: Promoter region deletion/duplication testing only.), KIT, MEN1, MLH1, MSH2, MSH3, MSH6, MUTYH, NBN, NF1, PALB2, PDGFRA, PMS2, POLD1, POLE, PTEN, RAD50, RAD51C, RAD51D, SDHB, SDHC, SDHD, SMAD4, SMARCA4, STK11, TP53, TSC1, TSC 2, VHL. The following genes were evaluated for sequence changes only: HOXB13 (c.251G>A, p.Zzr66Sel variant only), NTHL1 (NTHL1: Deletion/duplication analysis is not offered for this gene ([id number]), and SDHA. A variant of uncertain significance in the AMAURY gene, specifically c.5727G>A (p.[id number]), was detected. Interval Hx/ROS: Today reports that her issue with wt gain and irritability are no different following the switch back from anastrazole to tamoxifen. Had right rotator cuff surgery last month. Persistent neuropathy in feet & toes - Still taking gabapentin (taking 300mg bid now). Leg cramps at nite gone. Reportsno new problems with frequent headaches, double vision, cough, SOB, bleeding, change in bowel or bladder function. ROS otherwise neg. Exam Patient Vitals for the past 24 hrs: Temp Pulse Resp BP SpO2 01/07/20 1111 36.9 ??C (98.4 ??F) 65 16 139/90 98 % PERRL, EOMi, sclera nonicteric No BLANCA No spine tenderness S/P bilateral mastectomy/recon; no recall nodules Chest clear to A and P CV: RRR, no m/ Abd: No HSM, NT, +BS Ext: no c.c.e Neuro grossly non-focal Assessment and Plan: 54 yo woman diagnosed in Mar 2017 with a high-grade, node-positive left breast cancer ER+/NE+/HER2-. She is s/p bilateral mastectomy, completed adjuvant chemo in October 2017. Given her LMP was right before chemo initiation, recommended adjuvant Tamoxifen, which she started March 2017 after radiation completion. 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 Given side effects from tamoxifen, and post-menopausal status confirmed with FSH/E2, tried switch to anastrazole, but requested return to tamoxifen b/o side effects. Today, since this did not improve/change things, she is willing to switch back to anastrazole. Will finish her current supply of tamoxifen, then switch to anastrazole. RTC 6 mo. documented in this encounter Plan of Treatment Upcoming Encounters Date Type Department Care Team (Late st Contact Info) Description 01/22/2024 10:30 AM EST Appointment Mammography/[place] [phone] Ladi Mendosa MD [facility] HEMATOLOGY/[place] [address] 01/30/2024 11:30 AM EST Office Visit Dermatology at [address] [address] Nilda Luis MD [facility] [place] [address] 02/15/2024 9:30 AM EST [place] [phone] [place] [address] documented as of this encounter Visit Diagnoses Diagnosis Malignant neoplasm of upper-outer quadrant of left breast in female, estrogen receptor positive Neuropathy due to chemotherapeutic drug Polyneuropathy due to drugs documented in this encounter Care Teams Denitrator Operator Relationship Specialty Start Date End Date Trinh Coates MD [address] [place] [address] PCP - General 01/11/10 documented as of this encounter
--- OUTSIDE RECORDS SUMMARY | 2023-09-07 11:26 | XMS_ITS | Encounter Summary ---
Author Organization [facility] Address [facility] Marg[facility]ita [facility] [place] [address] Care Team Providers Care High [employer] Foreign Language Teacher Name Role Phone Trinh Coates MD Primary Care Provider [phone] Reason for Visit * Reason Comments Medication Refill Encounter Details Date Type Department Care Team (Late st Contact Info) Description 03/01/2021 Refill Dermatology at [facility] [address] [place] [address] Anderson Zhou MD [facility] [place] [address] Psoriasis Social History Tobacco Use Types Packs/Day [...] 01/22/2024 10:30 AM EST Appointment Mammography[place] [address] Ladi Mendosa MD [facility] HEMATOLOGY/[place] [address] 01/30/2024 11:30 AM EST Office Visit Dermatology at [facility] [address] [place] [address] Nilda Luis MD [facility] DR [address] [place] [address] 02/15/2024 9:30 AM EST [place] [phone] [place] [address] documented as of this encounter Visit Diagnoses Diagnosis Psoriasis Other psoriasis documented in this encounter Care Teams [employer] Foreign Language Teacher Relationship Specialty Start Date End Date Trinh Coates MD [address] [place] [address] PCP - General 01/11/10 documented as of this encounter
--- OUTSIDE RECORDS SUMMARY | 2023-09-07 11:26 | XMS_ITS | Encounter Summary ---
Author Organization Formerly [facility], Later [facility] Address [facility] [place] [address] Care Team Providers Care Punch Out Crew Member Name Role Phone Trinh Coates MD Primary Care Provider [phone] Encounter Details Date Type Department Care Team (Latest Contact Info) Description 09/19/2019 11:00 AM EDT Office Visit [place] [address] [place] [address] Hypertension, unspecified type; Aldosteronism; GREGORY (acute kidney injury) Social History Tobacco Use Types Packs/Day Years [...] Sign Reading Time Taken Comments Blood Pressure 117/71 09/19/2019 10:34 AM EDT Pulse 61 09/19/2019 10:34 AM EDT Temperature - - Respiratory Rate - - Oxygen Saturation - - Inhaled Oxygen Concentration - - Weight 83.9 kg (185 lb) 09/19/2019 10:34 AM EDT Height 154.9 cm (5' 1) 09/19/2019 10:34 AM EDT Body Mass Index 34.96 09/19/2019 10:34 AM EDT documented in this encounter Progress Notes * Zackery Dawson MD - 09/19/2019 11:00 AM EDT PATIENT: Wendy Sandoval : 1965 Interval history: Patient reports overall doing well. She has had tapering of her potassium supplementation per PCP. She does report occasional cramping in the back of her legs. She does not believe she is as hydrated as she could be. She will continue to focus on this Assessment/Plan: #Creatinine elevation suspect likely CKD stage III CR 1.65 -> eGFR 34 . Creatinine appears to fluctuate between around 1 and 2 mg/dL and what appears to be hemodynamic pattern. BUN to creatinine ratio approximately 20 and patient endorses poor hydration. Sub-gram proteinuria with albuminuria 318 mcg/mg creatinine/0.5 g per spot UPC. Improved compared to prior spot checks in 2014. Patient reports proteinuria has been present since episode of eclampsiaduring . Plan: Further encourage patient to stay well-hydrated particularly in the summer months, would continue to monitor BMP at least quarterly Patient is on losartan, diltiazem and Spironolactone, all noted to have anti-proteinuric properties. Recommend stretching and hydration with regards to ongoing cramping ?? 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 Potassium and blood pressure well controlled well controlled. Patient is on spironolactone, and blood pressure and hypokalemia appears to be relatively well managed at this point in time. Knowing toxic effects of aldosterone overtime with regards to the heart in the kidney system may consider maximizing dose . Would continue to monitor potassium and magnesiumat least quarterly. ?? #Hemodynamics Hypertension well controlled in clinic blood pressure 117/71 mmHg. patient underwent 24-hour monitor in January 2019 with 24-hour average pressure at goal 123/76 with appropriate dipping status antihypertensives: 25 mg spironolactone, diltiazem 240 mg losartan 100 mg. Patient appears to be tolerating this regimen at this time and blood pressure is well controlled. Will continue present management Unclear whether spironolactone Has any effect on anastrozole, and breast cancer risk. Renal Clinic Follow-Up Plan: 6 months Past [...] IR Drain Check/Change/Remove 11/20/2017 Marcos Dey MD [facility] INTERVENTIONL RAD ??? IR MEDIPORT REMOVAL 01/25/2018 IR Mediport Removal 01/25/2018 Scooby Muñoz, AARTI [facility] INTERVENTIONL RAD ??? PRG EMG, LARYNX N/A 11/02/2015 FACIAL NERVE MONITORING, SETUP LARYNGEAL performed by Valentina Lucas MD at [facility] OR ??? PRO BREAST RECONSTRUC W FREE FLAP Bilateral 04/26/2017 @BREAST RECONSTRUCTION W/ FREE FLAP, SUSAN (WRVU 42.58) performed by [facility] ??? PRO BREAST RECONSTRUC W FREE FLAP, W/O IMPLANT Bilateral 12/12/2017 @BREAST RECONSTRUCTION W/ LAT DORSI FLAP,W/O IMPLANT, SUSAN (WRVU 23.36) performed by Andre Gimenez MD at [facility] OR ??? PRO BREAST RECONSTRUC W TISS EXPANDR Bilateral 04/26/2017 BREAST RECONSTRUCTION, IMMEDIATE OR DELAYED, W/ TISSUE MOTORIZED SQUAD LIEUTENANT, INCLUDING SUBSEQUENT EXPANSION (WRVU 18.5) performed by Andre Gimenez MD at [facility] OR ? ? PRO DEBRIDEMENT SUBCUTANEOUS TISSUE 20 SQCM/< 06/22/2017 DEBRIDEMENT SKIN AND SUBCU, BREAST (WRVU 1.01) performed by Andre Gimenez MD at [facility] OR ??? PRO EXPLORE PARATHYROID GLANDS N/A 11/02/2015 PARATHYROIDECTOMY OR EXPLORATION OF PARATHYROID(S) performed by Valentina Lucas MD at [facility] OR ? ? PRO FULL THICK GRFT TRUNK <20 SQCM Bilateral 04/26/2017 FTSG, FREE, DIR CLOSE DONOR SITE, TRUNK, 20 SQ CM OR LESS (WRVU 9.15) performed by Andre Gimenez MD at [facility] OR ??? PRO INCISION OF LYMPH CHANNELS Left 10/18/2018 INCISION & DRAINAGE LYMPHOCELE (WRVU 6.81) performed by Andre Gimenez MD at [facility] OR ??? PRO IV INJ TO TEST BLOOD FLOW IN FLAP/GRAFT Left 10/18/2018 IV INJECTION, AGENT TO TEST VASC FLOW IN FLAP OR GRAFT, ENT (WRVU 1.95) performed by Andre Gimenez MD at [facility] OR ??? PRO MASTECTOMY, SIMPLE, COMPLETE Bilateral 04/26/2017 MASTECTOMY, SIMPLE, COMPLETE-SUSAN (WRVU 15.85) performed by Jolie Menendez MD at [facility] OR ??? PRO PARTIAL REMOVAL OF RIB Bilateral 04/26/2017 EXCISION OF RIB, PARTIAL (WRVU 7.26) performed by Andre Gimenez MD at [facility] OR ??? PRO REMOVE ARMPITS LYMPH NODES COMPLT Left 04/26/2017 LYMPHADENECTOMY, AXILLARY, COMPLETE (WRVU 13.87) performed by Jolie Menendez MD at [facility] OR ??? PRO REPLACE TISSUE MOTORIZED SQUAD LIEUTENANT Bilateral 12/12/2017 TISSUE MOTORIZED SQUAD LIEUTENANT REPLACEMENT, WITH PERMANENT PROSTHESIS, SUSAN (WRVU 8.01) performed by Andre Gimenez MD at [facility] OR ??? PRO REVISION RECONSTRUCTED BREAST Left 06/22/2017 REVISION OF RECONSTRUCTED BREAST (WRVU 10.41) performed by Andre Gimenez MD at [facility] OR ??? PRO REVISION RECONSTRUCTED BREAST Bilateral 12/12/2017 REVISION OFRECONSTRUCTED BREAST, SUSAN (WRVU 10.41) performed by Andre Gimenez MD at [facility] OR ??? PRO THYMECTOMY, TRANSCERVICAL N/A 11/02/2015 THYMECTOMY, TRANSCERVICAL APPROACH performed by Valentina Lucas MD at [facility] OR ??? SHOULDER SURGERY Left ??? UMBILICAL [...] to Visit Medication Sig Dispense Refill ??? ustekinumab (Stelara) [...] 5,000 unit Tablet Take by mouth. ??? acetaminophen (TYLENOL) [...] ??? fluoxetine (PROZAC) 40 mg capsule daily. ??? [DISCONTINUED] anastrozole (ARIMIDEX) 1 mg Tablet Take 1 tablet by mouth daily. Start week of Dec 16, 2018 (having stopped tamoxifen for 7-10 days). (Patient not taking: Reported on 06/30/2019) 90tablet 3 ??? atorvastatin (LIPITOR) 20 mg Tablet Take 1 tablet by mouth daily. 0 No current facility-administered medications on file prior to visit. MEDICATIONS: Allergies Allergen Reactions ??? Zoloft [Sertraline] PSORIASIS FLARE ROS: Constitutional [...] PHYSICAL EXAM: Last value Temperature Heart Rate Heart Rate: 61 Blood Pressure BP: 117/71 Respiratory Rate SpO2 Appearance - Alert, Comfortable. Skin - No exanthem. HEENT - Sclera white. Mucous membranes moist. Chest:. Lungs clear to ausculatation w/o wheezes/ rhonchi/ crackles. Heart - S1 and S2 clear w/o murmur, gallop, or rub. JVP not elevated. Abd - Soft. + BS. No bruit. Non tender. Ext - . Warm. No cyanosis. No dependent edema. Left UE in compression bandages/Lymphadema Neuro - No asterixis. STUDIES: Labs: CBC: Recent Labs 03/04/19 1031 WBC 8.2 HGB 13.6 PLATELET 348 Chemistry: Recent Labs 03/04/19 1031 NA 142 K 4.8 CL 107 CO2 23 BUN 27* CREATININE 1.34* GLUCOSE 132 Recent Labs 03/04/19 1031 CALCIUM 9.4 LFT's: Recent Labs 03/04/19 1031 BILITOT 0.3 ALBUMIN 4.2 ALKPHOS 94 ALT 18 AST 17 Zackery Dawson MD, MPH Section of Nephrology #[id number] documented in this encounter Plan of Treatment Upcoming Encounters Date Type Department Care Team (Late st Contact Info) Description 01/22/2024 10:30 AM EST Appointment Mammography/[place] [address] Ladi Mendosa MD [facility] HEMATOLOGY/[place] [address] 01/30/2024 11:30 AM EST Office Visit Dermatology at [facility] [address] [place] [address] Nilda Luis MD [facility] [address] [address] 02/15/2024 9:30 AM EST [place] [address] [place] [address] documented as of this encounter Procedures Procedure Name Priority Date/Time Associated Diagnosis Comments HC PROTEIN, QUANTITATIVE, URINE Routine 09/19/2019 11:05 AM EDT Hypertension, unspecified type documented in this encounter Results * (ABNORMAL) Protein/Creatinine Ratio, urine (09/19/2019 11:05 AM EDT) U Creatinine 92 mg/dL [facility] U Protein Ran 36(H) 0 - 12 mg/dL [facility] Prot/Cre Ratio 0.4 ratio [facility] Urine specimen (specimen) 09/19/2019 11:05 AM EDT 09/19/2019 11:34 AM EDT Narrative Resulting Agency Comment Spec In Lab Zackery Dawson MD URINE ORDERABLES [facility] [place] [address] documented in this encounter Visit Diagnoses Diagnosis Hypertension, unspecified type Aldosteronism Hyperaldosteronism, unspecified GREGORY (acute kidney injury) Acute kidney failure, unspecified documented in this encounter Care Teams Punch Out Crew Member Relationship Specialty Start Date End Date Trinh Coates MD [address] [facility] [address] [place] [address] PCP - General 01/11/10 documented as of this encounter
--- OUTSIDE RECORDS SUMMARY | 2023-09-07 11:26 | XMS_ITS | Encounter Summary ---
Author Organization [facility] Address [facility] [place] [address] Care Team Providers Care Hand Paster Name Role Phone Trinh Coates MD Primary Care Provider [phone] Encounter Details Date Type Department Care Team (Late st Contact Info) Description 05/11/[address] [facility] [address] [place] [address] Nilda Luis MD [facility] [address] [place] [address] Psoriasis Social History Tobacco Use Types Packs/Day [...] 01/22/2024 10:30 AM EST Appointment Mammography/[place] [address] Ladi Mendosa MD [facility] HEMATOLOGY/[place] [address] 01/30/2024 11:30 AM EST Office Visit Dermatology at [facility] [address] [place] [address] Nilda Luis MD [facility] [address] [place] [address] 02/15/2024 9:30 AM EST Appointment [place] [phone] [place] [address] documented as of this encounter Visit Diagnoses Diagnosis Psoriasis Other psoriasis documented in this encounter Care Teams Hand Paster Relationship Specialty Start Date End Date Trinh Coates MD [address] [place] [address] PCP - General 01/11/10 documented as of this encounter
--- OUTSIDE RECORDS SUMMARY | 2023-09-07 11:26 | XMS_ITS | Encounter Summary ---
Author Organization [facility] Address [facility] [place] [address] Care Team Providers Care Marketing Services Vice President Name Role Phone Trinh Coates MD Primary Care Provider [phone] Reason for Visit * Reason Comments Specialty Pharmacy Review Encounter Details Date Type Department Care Team (Late st Contact Info) Description 10/20/2019 Specialty [place] [address] [employer] Social History Tobacco Use Types Packs/Day Years [...] 01/22/2024 10:30 AM EST Appointment Mammography/[place] [address] Ladi Mendosa MD [facility] HEMATOLOGY/[place] [address] 01/30/2024 11:30 AM EST Office Visit Dermatology at [facility] [address] [place] [address] Nilda Luis MD [facility] [place] [address] 02/15/2024 9:30 AM [place] [phone] [place] [address] documented as of this encounter Visit Diagnoses Not on filedocumented in this encounter Care Teams Marketing Services Vice President Relationship Specialty Start Date End Date Trinh Coates MD [facility] [address] [place] [address] PCP - General 01/11/10 documented as of this encounter
--- OUTSIDE RECORDS SUMMARY | 2023-09-07 11:26 | XMS_ITS | Encounter Summary ---
Author Organization [facility] Address [facility] [place] [address] Care Team Providers Care Restoration Officer Name Role Phone Trinh Coates MD Primary Care Provider [phone] Encounter Details Date Type Department Care Team (Late st Contact Info) Description 01/30/2020 External Results [place] [address] Antwon Dowell MD [facility] [place] [address] Social History Tobacco Use Types Packs/Day Years [...] 10:30 AM EST Appointment Mammography/[place] [address] Ladi Mendosa MD [facility] HEMATOLOGY/[place] [address] 01/30/2024 11:30 AM EST Office Visit Dermatology at [address] [place] [address] Nilda Luis MD [facility] [address] [place] [address] 02/15/2024 9:30 AM EST Appointment [place] [phone] [place] [address] documented as of this encounter Procedures Procedure Name Priority Date/Time Associated Diagnosis Comments EMG SCAN Routine 01/30/2020 documented in this encounter Results * Scan Doc: EMG (01/30/2020) Antwon Dowell MD MEDIA MGR SCAN EXT O RDR/RSLT documented in this encounter Visit Diagnoses Not on filedocumented in this encounter Care Teams Restoration Officer Relationship Specialty Start Date End Date Trinh Coates MD [address] [place] [address] PCP - General 01/11/10 documented as of this encounter
--- OUTSIDE RECORDS SUMMARY | 2023-09-07 11:26 | XMS_ITS | Encounter Summary ---
Author Organization [facility] Address [facility] [place] [address] Care Team Providers Care Lineman A Class Name Role Phone Trinh Coates MD Primary Care Provider [phone] Encounter Details Date Type Department Care Team (Late st Contact Info) Description 09/01/2019 Telephone Radiation Oncology at [address] [address] Mayda Calvert RN Social History Tobacco Use Types Packs/Day [...] encounter Miscellaneous Notes * Telephone Encounter - Mayda Calvert RN - 09/01/2019 12:36 PM EDT Telephone call to patient. I let her know taht 08/05/19 xray of her right shoulder showed degenerative change and no evidence of cancer. I also let her know that Dr. Choi will arrange follow up appointment for Jan 2020. She states that she is thankful for the phone call and good news. * Telephone Encounter - Mayda Calvert RN - 09/01/2019 12:34 PM EDT ----- Message from Emily Choi MD sent at 08/27/2019 1:11 PM EDT ----- Regardin08/05/19 plain xray R shoulder Mayda, will you please let her know 08/05/19 plain xray R shoulder showed degenerative change, no evidence of cancer & that we will arrange followup appointment w/me in ? [facility], epf w/me in , please. Emily documented in this encounter Plan of Treatment Upcoming Encounters Date Type Department Care Team (Late st Contact Info) Description 01/22/2024 10:30 AM EST Appointment Mammography/[place] [phone] Ladi Mendosa MD [facility] DR HEMATOLOGY/[place] [address] 01/30/2024 11:30 AM EST Office Visit Dermatology at [address] [phone] Nilda Luis MD [facility] DR [address] [place] [address] 02/15/2024 9:30 AM [place] [address] [place] [address] documented as of this encounter Visit Diagnoses Not on filedocumented in this encounter Care Teams Lineman A Class Relationship Specialty Start Date End Date Trinh Coates MD [address] [place] [address] PCP - General 01/11/10 documented as of this encounter
--- OUTSIDE RECORDS SUMMARY | 2023-09-07 11:26 | XMS_ITS | Encounter Summary ---
Author Organization [facility] Address [facility] [place] [address] Care Team Providers Care Bi Consultant Name Role Phone Trinh Coates MD Primary Care Provider [phone] Encounter Details Date Type Department Care Team (Latest Contact Info) Description 03/11/2021 11:00 AM EST Office Visit [place] [address] [place] [address] Hypertension, unspecified type; Aldosteronism Social History Tobacco Use Types Packs/Day Years [...] Sign Reading Time Taken Comments Blood Pressure 130/72 03/11/2021 10:44 AM EST Pulse 59 03/11/2021 10:44 AM EST Temperature - - Respiratory Rate - - Oxygen Saturation - - Inhaled Oxygen Concentration - - Weight 86.6 kg (191 lb) 03/11/2021 10:44 AM EST Height 154.9 cm (5' 1) 03/11/2021 10:44 AM EST Body Mass Index 36.09 03/11/2021 10:44 AM EST documented in this encounter Progress Notes * Zackery Dawson MD - 03/11/2021 11:00 AM EST PATIENT: Wendy Sandoval : 1965 Interval history: Patient reports overall doing well. She continues to experience fatigue. She has sleep apnea well managed with recent interrogation of her prescription. She has also had recent titration of her gabapentin. We will recommend that she take long-acting antihypertensives at night as able. Assessment/Plan: #Creatinine elevation??suspect likely CKD stage III CR??1.4??->??eGFR 38ml/min .?Creatinine fluctuate between around 1 and 2 mg/dL and what appears to be hemodynamic pattern. BUN to creatinine ratio approximately 22 and patient endorses poor hydration.? Sub-gram proteinuria with albuminuria 318 mcg/mg creatinine/0.4 g per spot UPC. Improved compared to prior spot checks in 2014. Serologic work-up was negative. ??Patient reports proteinuria has been present since episode of eclampsia during . Plan: Continue to focus on hydration. ??Patient is on losartan, diltiazem and Spironolactone,??all noted to have anti-proteinuric properties. Recommend stretching and hydration with regards to ongoing cramping ?? #Hyperaldosteroism BP is well controlled at 130/72 Bilateral disease per renal vein sampling. Potassium managed without supplementation. Patient is on spironolactone, and blood pressure and hypokalemia appears to be relatively well managed at this point in time.?Would continue to monitor potassium and magnesium at least quarterly. ?? Continue spironolactone, diltiazem and losartan ?? Renal Clinic Follow-Up Plan: 6 months Past [...] IR Drain Check/Change/Remove 11/20/2017 Marcos Dey MD [facility] INTERVENTIONL RAD ??? IR MEDIPORT REMOVAL 01/25/2018 IR Mediport Removal 01/25/2018 Toni Scooby Carlos Alberto, OIL PLANT OPERATOR [facility] INTERVENTIONL RAD ??? PRG EMG, LARYNX N/A 11/02/2015 FACIAL NERVE MONITORING, SETUP LARYNGEAL performed by Valentina Lucas MD at [facility] OR ??? PRO BREAST RECONSTRUCTION IMMT/DLYD W/TISS HOME OFFICE CLAIMS EXAMINER SBSQ EXPANSION Bilateral 04/26/2017 BREAST RECONSTRUCTION, IMMEDIATE OR DELAYED, W/ TISSUE HOME OFFICE CLAIMS EXAMINER, INCLUDING SUBSEQUENT EXPANSION (WRVU 18.5) performed by Andre Gimenez MD at [facility] OR ??? PRO BREAST RECONSTRUCTION W FREE FLAP Bilateral 04/26/2017 @BREAST RECONSTRUCTION W/ FREE FLAP, SUSAN (WRVU 42.58) [facility] ??? PRO BREAST RECONSTRUCTION W/LATSMS D/SI FLAP WO PRSTHC IMPL Bilateral 12/12/2017 @BREAST RECONSTRUCTION W/ LAT DORSI FLAP,W/O IMPLANT, SUSAN (WRVU 23.36) performed by Andre Gimenez MD at [facility] OR ? ? PRO DEBRIDEMENT SUBCUTANEOUS TISSUE 20 SQCM/< 06/22/2017 DEBRIDEMENT SKIN AND SUBCU, BREAST (WRVU 1.01) performed by Andre Gimenez MD at [facility] OR ??? PRO EXPLORE PARATHYROID GLANDS N/A 11/02/2015 PARATHYROIDECTOMY OR EXPLORATION OF PARATHYROID(S) performed by Valentina Lucas MD at [facility] OR ? ? PRO FULL THICK GRFT TRUNK <20 SQCM Bilateral 04/26/2017 FTSG, FREE, DIR CLOSE DONOR SITE, TRUNK, 20 SQ CM OR LESS (WRVU 9.15) performed by Andre Gimenez MD at [facility] OR ??? PRO INCISION OF LYMPH CHANNELS Left 10/18/2018 INCISION & DRAINAGE LYMPHOCELE (WRVU 6.81) performed by Andre Gimenez MD at [facility] OR ??? PRO IV INJ TO TEST BLOOD FLOW IN FLAP/GRAFT Left 10/18/2018 IV INJECTION, AGENT TO TEST VASC FLOW IN FLAP OR GRAFT, ENT (WRVU 1.95) performed by Andre Gimenez MD at [facility] OR ??? PRO MASTECTOMY, SIMPLE, COMPLETE Bilateral 04/26/2017 MASTECTOMY, SIMPLE, COMPLETE-SUSAN (WRVU 15.85) performed by Jolie Menendez MD at [facility] OR ??? PRO PARTIAL REMOVAL OF RIB Bilateral 04/26/2017 EXCISION OF RIB, PARTIAL (WRVU 7.26) performed by Andre Gimenez MD at [facility] OR ??? PRO REMOVE ARMPITS LYMPH NODES COMPLT Left 04/26/2017 LYMPHADENECTOMY, AXILLARY, COMPLETE (WRVU 13.87) performed by Jolie Menendez MD at [facility] OR ??? PRO REPLACE TISSUE HOME OFFICE CLAIMS EXAMINER Bilateral 12/12/2017 TISSUE HOME OFFICE CLAIMS EXAMINER REPLACEMENT, WITH PERMANENT PROSTHESIS, SUSAN (WRVU 8.01) performed by Andre Gimenez MD at [facility] OR ??? PRO REVISION RECONSTRUCTED BREAST Left 06/22/2017 REVISION OF RECONSTRUCTED BREAST (WRVU 10.41) performed by Andre Gimenez MD at [facility] OR ??? PRO REVISION RECONSTRUCTED BREAST Bilateral 12/12/2017 REVISION OFRECONSTRUCTED BREAST, SUSAN (WRVU 10.41) performed by Andre Gimenez MD at [facility] OR ??? PRO THYMECTOMY, TRANSCERVICAL N/A 11/02/2015 THYMECTOMY, TRANSCERVICAL APPROACH performed by Valentina Lucas MD at [facility] OR ??? SHOULDER SURGERY Left [...] once daily 0 ??? cholecalciferol, Vitamin D3, (VITAMIN D-3) 5,000 unit Tablet Take by mouth. ??? acetaminophen (TYLENOL) 325 mg Tablet Take 2 tablets by mouth every 4 hours as needed for Pain. ??? ferrous gluconate 324 mg (37.5 mg iron) Tablet Take 324 mg by mouth daily. ??? fluoxetine (PROZAC) 40 mg capsule daily. No current facility-administered medications on file prior to visit. MEDICATIONS: Allergies Allergen Reactions ??? Zoloft [Sertraline] PSORIASIS FLARE ROS: Constitutional - No fevers, chills, weight loss. fatigue Skin - No rash or itchy skin [...] Last value Temperature Heart Rate Heart Rate: 59 Blood Pressure BP: 130/72 Respiratory Rate SpO2 Appearance - Alert, Comfortable. Skin - No exanthem. HEENT - Sclera white. Mucous membranes moist. Chest:. Lungs clear to ausculatation w/o wheezes/ rhonchi/ crackles. Heart - S1 and S2 clear w/o murmur, gallop, or rub. JVP not elevated. Abd - Soft. + BS. No bruit. Non tender. Ext - . Warm. No cyanosis. No dependent edema. Neuro - No asterixis. Zackery Dawson MD, MPH Section of Nephrology #[id number] documented in this encounter Plan of Treatment Upcoming Encounters Date Type Department Care Team (Late st Contact Info) Description 01/22/2024 10:30 AM EST Appointment Mammography/DXA at [place] [phone] Ladi Mendosa MD [facility] DR HEMATOLOGY/[place] [address] 01/30/2024 11:30 AM EST Office Visit Dermatology at [address] [place] [address] Nilda Luis MD [facility] [address] [place] [address] 02/15/2024 9:30 AM EST [place] [address] [place] [address] documented as of this encounter Visit Diagnoses Diagnosis Hypertension, unspecified type Aldosteronism Hyperaldosteronism, unspecified documented in this encounter Care Teams Bi Consultant Relationship Specialty Start Date End Date Trinh Coates MD [facility] [address] [facility] [address] [place] [address] PCP - General 01/11/10 documented as of this encounter
--- OUTSIDE RECORDS SUMMARY | 2023-09-07 11:26 | XMS_ITS | Encounter Summary ---
[place] [address] Care Team Providers Care Hollow Tile Partition Erector Name Role Phone Trinh Coates MD Primary Care Provider [phone] Reason for Visit * Reason Onset Date Comments Follow-up 08/11/2020 AI Holiday anast rozole Encounter Details Date Type Department Care Team (Late st Contact Info) Description 08/11/2020 Telephone [place] [phone] Arpita Ordonez RN Follow-up (AI Holiday anastrozole) Social History Tobacco Use Types Packs/Day Years [...] Telephone Encounter - Arpita Ordonez RN - 08/11/2020 9:19 AM EDT Images from the original note were not included. Arpita Ordonez RN [facility] Hem Onc Triage Breast Follow up AI holiday 4 weeks off anastroxzole for elbow, low back and foot pain. See 07/13 and 08/04 notes. Call placed to patient. She does feel a little better. Elbow, back and foot are still a problem although somewhat better, about 20% better. Saw PCP yesterday and received a referral for a foot provider. Tried taking IBU round the clock following package directions for for two days with no relief. Taking IBU now mostly at night but not really helping pain but allows her to get to sleep. Plan of care: Will start taking the anastrozole tomorrow AM and will call with new or worsening s/s. Will see foot doctor for foot pain. Will try splint for hand and see if that helps elbow pain. Years ago she had an xray of her back and there was arthritis but she has enough going on and will wait to tackle this. She may try Aleve and see if her body responds better to that analgesic. No follow up needed at this time. documented in this encounter Plan of Treatment Upcoming Encounters Date Type Department Care Team (Late st Contact Info) Description 01/22/2024 10:30 AM EST Appointment Mammography/DXA at [place] [phone] Ladi Mendosa MD [facility] DR HEMATOLOGY/[place] [address] 01/30/2024 11:30 AM EST Office Visit Dermatology at [address] [phone] Nilda Luis MD [facility] DR [address] [address] 02/15/2024 9:30 AM EST [place] [address] [place] [address] documented as of this encounter Visit Diagnoses Not on filedocumented in this encounter Care Teams Hollow Tile Partition Erector Relationship Specialty Start Date End Date Trinh Coates MD [facility] [address] [place] [id number] PCP - General 01/11/10 documented as of this encounter
--- OUTSIDE RECORDS SUMMARY | 2023-09-07 11:26 | XMS_ITS | Encounter Summary ---
Author Organization [facility] [place] [address] Care Team Providers Care Asphalt Heater Operator Name Role Phone Trinh Coates MD Primary Care Provider [phone] Reason for Visit * Reason Comments Medication Refill Encounter Details Date Type Department Care Team (Late st Contact Info) Description 03/17/2020 Refill Dermatology at [facility] [address] [place] [address] Tino Mann MD [facility] DR LIDIA [place] [address] Psoriasis Social History Tobacco Use Types Packs/Day [...] 01/22/2024 10:30 AM EST Appointment Mammography[place] [address] Ladi Mendosa MD [facility] HEMATOLOGY/[place] [address] 01/30/2024 11:30 AM EST Office Visit Dermatology at [facility] [address] [place] [address] Nilda Luis MD [facility] DR LIDIA [place] [address] 02/15/2024 9:30 AM EST [place] [phone] [place] [address] documented as of this encounter Visit Diagnoses Diagnosis Psoriasis Other psoriasis documented in this encounter Care Teams Asphalt Heater Operator Relationship Specialty Start Date End Date Trinh Coates MD [address] [place] [address] PCP - General 01/11/10 documented as of this encounter
--- OUTSIDE RECORDS SUMMARY | 2023-09-07 11:26 | XMS_ITS | Encounter Summary ---
Author Organization [facility] Address [facility] [place] [address] Care Team Providers Care Hosted Services Analyst Name Role Phone Trinh Coates MD Primary Care Provider [phone] Reason for Visit * Reason Comments Radiation Follow-up Encounter Details Date Type Department Care Team (Late st Contact Info) Description 07/12/2020 1:00 PM EDT Office Visit Radiation Oncology at [address] [phone] Emily Choi MD [facility] DR [place] [address] Hormone receptor positive malignant neoplasm [...] Sign Reading Time Taken Comments Blood Pressure 127/75 07/12/2020 1:09 PM EDT Pulse 66 07/12/2020 1:09 PM EDT Temperature 37.1 ??C (98.8 ??F) 07/12/2020 1 :09 PM EDT Respiratory Rate 16 07/12/2020 1:09 PM EDT Oxygen Saturation 98% 07/12/2020 1:0 9 PM EDT Inhaled Oxygen Concentration - - Weight 85.9 kg (189 lb 6.4 oz) 07/13/19 1:09 PM EDT with shoes Height - - Body Mass Index 34.41 01/07/2020 11:11 AM EST documented in this encounter Patient Instructions * Patient Instructions* Emily Choi MD - 07/12/2020 1:00 PM EDT Your exam is without worrisome finding. I think the stiffness/tightness of left neck is likely related to black fly bites. I think your joint & muscle soreness is from anastrozole (arimidex) & recommend you contactDr. Barnett's office @ [phone] & ask if it might help to have a drug holiday. I will notify him that you may be calling. I would like to see you for followup in 6 months. Someone will contact you to schedule appointment. documented in this encounter Progress Notes * Emily Choi MD - 07/12/2020 1:00 PM EDT Images from the original note were not included. CC: Sched'd fu s/p xrt completion. HPI: Wendy is a 55 y/o f who completed xrt 2 yrs, 4 mos ago (03/11/18) for breast ca, L, IDC, gr 3, ER+DC+, Her2 FISH neg, s/p B skin sparing mastectomies w/B free nipple grafts & L ax dissxn; immed B free flap recon attempted but could not be done due to flap arterial spasms; expanders placed; pT1c pN2a. Adjuvant chemo then given, followed by rd manager exchange for implants. She is taking anne, started after xrt completion; switched to arimidex for a while, then back to anne, then back to arimidex. 10/18/18 lymphovenous bypass L upper ext by [...] R rotator cuff by Ortho group in [facility]. Subjective: Aches & pains in joints & muscles which makes it difficult for her to walk by end of day. Stiff L neck following recent black fly bites on L neck. L arm lymphedema stable. Past Medical History: Diagnosis Date ??? Fibrocystic breast determined by biopsy ??? Hyperlipidemia ??? Hypertension ??? Impaired fasting glucose ??? Malignant neoplasm of upper-outer quadrant of left breast in female, estrogen receptor positive03/31/2017 ??? Obstructive sleep apnea on CPAP ??? Proteinuria Psoriasis Hypothyroidism Nephrolithiasis Primary hyperparathyroidism, s/p 3 gland removal Past Surgical History: Procedure Laterality Date ??? BREAST BIOPSY Right 11/01 ??? SECTION x 2 ??? HAND SURGERY Right ??? IR DRAIN CHECK/CHANGE/REMOVE 11/20/2017 IR Drain Check/Change/Remove 11/20/2017 Marcos Dey MD [facility] INTERVENTIONL RAD ??? IR MEDIPORT REMOVAL 01/25/2018 IR Mediport Removal 01/25/2018 Scooby Muñoz APRN [facility] INTERVENTIONL RAD ??? PRG EMG, LARYNX N/A 11/02/2015 FACIAL NERVE MONITORING, SETUP LARYNGEAL performed by Valentina Lucas MD at [facility] MAIN OR ??? PRO BREAST RECONSTRUC W FREE FLAP Bilateral 04/26/2017 @BREAST RECONSTRUCTION W/ FREE FLAP, SUSAN (WRVU 42.58) performed by Andre Gimenez MD at [facility] [place] ??? PRO BREAST RECONSTRUC W FREE FLAP, W/O IMPLANT Bilateral 12/12/2017 @BREAST RECONSTRUCTION W/ LAT DORSI FLAP,W/O IMPLANT, SUSAN (WRVU 23.36) performed by Andre Gimenez MD at [facility] MAIN OR ??? PRO BREAST RECONSTRUC W TISS EXPANDR Bilateral 04/26/2017 BREAST RECONSTRUCTION, IMMEDIATE OR DELAYED, W/ TISSUE CATALYST OPERATOR, INCLUDING SUBSEQUENT EXPANSION (WRVU 18.5) performed by Andre Gimenez MD at [facility] OR ? ? PRO DEBRIDEMENT SUBCUTANEOUS TISSUE 20 SQCM/< 06/22/2017 DEBRIDEMENT SKIN AND SUBCU, BREAST (WRVU 1.01) performed by Andre Gimenez MD at [facility] OR ??? PRO EXPLORE PARATHYROID GLANDS N/A 11/02/2015 PARATHYROIDECTOMY OR EXPLORATION OF PARATHYROID(S) performed by Valentina Lucas MD at [facility] OR ? ? PRO FULL THICK GRFT TRUNK <20 SQCM Bilateral 04/26/2017 FTSG, FREE, DIR CLOSE DONOR SITE, TRUNK, 20 SQ CM OR LESS (WRVU 9.15) performed by Andre Gimenez MD at [facility] OR ??? PRO INCISION OF LYMPH CHANNELS Left 10/18/2018 INCISION & DRAINAGE LYMPHOCELE (WRVU 6.81) performed by Adnre Gimenez MD at [facility] OR ??? PRO IV INJ TO TEST BLOOD FLOW IN FLAP/GRAFT Left 10/18/2018 IV INJECTION, AGENT TO TEST VASC FLOW IN FLAP OR GRAFT, ENT (WRVU 1.95) performed by Andre Gimenez MD at [facility] OR ??? PRO MASTECTOMY, SIMPLE, COMPLETE Bilateral 04/26/2017 MASTECTOMY, SIMPLE, COMPLETE-SUSAN (WRVU 15.85) performed by Jolie Menendez MD at [facility] OR ??? PRO PARTIAL REMOVAL OF RIB Bilateral 04/26/2017 EXCISION OF RIB, PARTIAL (WRVU 7.26) performed by Andre Gimenez MD at [facility] OR ??? PRO REMOVE ARMPITS LYMPH NODES COMPLT Left 04/26/2017 LYMPHADENECTOMY, AXILLARY, COMPLETE (WRVU 13.87) performed by Jolie Menendez MD at [facility] OR ??? PRO REPLACE TISSUE CATALYST OPERATOR Bilateral 12/12/2017 TISSUE CATALYST OPERATOR REPLACEMENT, WITH PERMANENT PROSTHESIS, SUSAN (WRVU 8.01) performed by Andre Gimenez MD at [facility] OR ??? PRO REVISION RECONSTRUCTED BREAST Left 06/22/2017 REVISION OF RECONSTRUCTED BREAST (WRVU 10.41) performed by Andre Gimenez MD at [facility] MAIN OR ??? PRO REVISION RECONSTRUCTED BREAST Bilateral 12/12/2017 REVISION OFRECONSTRUCTED BREAST, SUSAN (WRVU 10.41) performed by Andre Gimenez MD at [facility] MAIN OR ??? PRO THYMECTOMY, TRANSCERVICAL N/A 11/02/2015 THYMECTOMY, TRANSCERVICAL APPROACH performed by Valentina Lucas MD at [facility] MAIN OR ??? SHOULDER SURGERY Left ??? UMBILICAL HERNIA REPAIR Your Medications Accurate as of July 12, 2020 1:16 PM. If you have any questions, ask your nurse or doctor. Continued medications, unchanged Dose Details acetaminophen 325 mg Tab Commonly known as: Tylenol Take 2 tablets by mouth every 4 hours as needed for Pain. 650 mg Refills: 0 anastrozole 1 mg Tab Commonly known as: Arimidex Take 1 tablet by mouth daily. 1 mg Quantity: 90 tablet Refills: 3 * clobetasoL 0.05 % Soln Commonly known as: TEMOVATE Apply topically to scalp once daily as needed. Quantity: 25 mL Refills: 5 * clobetasoL 0.05 % Crea Commonly known as: TEMOVATE Apply to affected areas on knees, elbows and hands twice daily for two week cycles as needed. Quantity: 60 g Refills: 3 dilTIAZem CD 240 mg Cp24 Commonly known as: Cardizem CD Take 240 mg by mouth daily. 240 mg Refills: 0 ferrous gluconate 324 mg (37.5 mg iron) Tab Commonly known as: Fergon Take 324 mg by mouth daily. 324 mg Refills: 0 FLUoxetine 40 mg Cap Commonly known as: PROzac daily. Refills: 0 gabapentin 300 mg Cap Commonly known as: Neurontin Take 1 capsule by mouth 3 times daily. 300 mg Quantity: 90 capsule Refills: 3 ibuprofen 200 mg Tab Commonly known as: Advil;Motrin Take 200 mg by mouth every 6 hours as needed for Pain. 200 mg Refills: 0 losartan 100 mg Tab Commonly known as: COZAAR take 1 tablet by mouth once daily Refills: 0 rosuvastatin 10 mg Tab Commonly known as: Crestor TAKE 1 TABLET BY MOUTH DAILY AT BEDTIME Refills: 0 spironolactone 25 mg Tab Commonly known as: Aldactone Take 1 tablet by mouth daily. 25 mg Quantity: 90 tablet Refills: 3 Stelara 45 mg/0.5 mL subcutaneous injection MAINTENANCE: INJECT 1 SYRINGE SUBCUTANEOUSLY EVERY 12 WEEKS. REFRIGERATE. DO NOT FREEZE Generic drug: ustekinumab Quantity: 0.5 mL Refills: 3 tamoxifen 20 mg Tab Commonly known as: NOLVADEX Take 1 tablet by mouth daily. 20 mg Quantity: 90 tablet Refills: 3 triamcinolone 0.1 % Oint Commonly known as: KENALOG Apply 1 each topically 2 times daily. To affected areas on trunk 1 each Quantity: 454 g Refills: 1 Vitamin D-3 125 mcg (5,000 unit) Tab Take by mouth. Generic drug: cholecalciferol (Vitamin D3) Refills: 0 * This list has 2 medication(s) that are the same as other medications prescribed for you. Read thedirections carefully, and ask your doctor or other care provider to review them with you. Physical Exam Constitutional: She is oriented to person, place, and time. She appears well- developed and well-nourished. No distress. BP 127/75 (Patient Position: Sitting) Pulse 66 Temp 37.1 ??C (98.8 ??F) (Temporal) Resp 16 Wt 85.9 kg (189 lb 6.4 oz) Comment: with shoes SpO2 98% BMI 34.41 kg/m?? HENT: Head: Normocephalic and atraumatic. Eyes: Conjunctivae and EOM are normal. Right eye exhibits no discharge. Left eye exhibits no discharge. No scleral icterus. Neck: 2 black fly bites on L neck, w/o evidence of infxn. Normal range of motion. Neck supple. No tracheal deviation present. No thyromegaly present. Pulmonary/Chest: Effort normal. No stridor. No respiratory distress. S/p B mastectomies w/B recon w/free nipple grafts. No hyperpigmentation/erythema. No visible/palpable ca on chest. Abdominal: Soft. She exhibits no distension and no mass. There is no tenderness. There is no rebound and no guarding. Musculoskeletal: L arm in lymphedema sleeve. Nl ROM arms @ shoulder. Lymphadenopathy: Head (right side): No submental, no submandibular, no preauricular, no posterior auricular and no occipital adenopathy present. Head (left side): No submental, no submandibular, no preauricular, no posterior auricular and no occipital adenopathy present. She has no cervical adenopathy. She has no axillary adenopathy. Right: No supraclavicular adenopathy present. Left: No supraclavicular adenopathy present. Neurological: She is oriented to person, place, and time. No cranial nerve deficit. She exhibits normal muscle tone. Coordination normal. Skin: Skin is warm and dry. She is not diaphoretic. Psychiatric: She has a normal mood and affect. Her behavior is normal. Judgment and thought contentnormal. A: GAVINO. Diffuse arthralgias & myalgias could be from anastrozole. P: Ask Dr. Barnett if arthralgias & myalgias could be from anastrozole & if it might help totake a drug holiday. Rtc 6 mos. 20 mins in encounter. documented in this encounter Plan of Treatment Upcoming Encounters Date Type Department Care Team (Late st Contact Info) Description 01/22/2024 10:30 AM EST Appointment Mammography/DXA at [place] [phone] Ladi Mendosa MD [facility] DR HEMATOLOGY/[place] [address] 01/30/2024 11:30 AM EST Office Visit Dermatology at [place] [address] [place] [address] Nidla Luis MD [facility] DR L[address] [place] [address] 02/15/2024 9:30 AM EST [place] [address] [place] [address] documented as of this encounter Visit Diagnoses Diagnosis Hormone receptor positive malignant neoplasm of left breast documented in this encounter Care Teams Hosted Services Analyst Relationship Specialty Start Date End Date Trinh Coates MD [address] [place] [address] PCP - General 01/11/10 documented as of this encounter
--- OUTSIDE RECORDS SUMMARY | 2023-09-07 11:26 | XMS_ITS | Encounter Summary ---
Author Organization [facility] Address [facility] [place] [address] Care Team Providers Care Basket Hand Weaver Name Role Phone Trinh Coates MD Primary Care Provider [phone] Encounter Details Date Type Department Care Team (Late st Contact Info) Description 09/11/2019 Telephone Dermatology at [facility] [address] [place] [address] Tino Mann MD [facility] [address] [place] [address] Social History Tobacco Use Types Packs/Day Years [...] encounter Miscellaneous Notes * Telephone Encounter - Chuyita Henry - 09/11/2019 8:58 AM EDT Received call from Wendy Sandoval stating that [facility] sent her a letter stating that a prior authorization needed to be done for her Tristan and that a notification was sent to the Dermatology team, please start prior authorization. documented in this encounter Plan of Treatment Upcoming Encounters Date Type Department Care Team (Late st Contact Info) Description 01/22/2024 10:30 AM EST Appointment Mammography/[place] [address] Ladi Mendosa MD [facility] HEMATOLOGY/[place] [address] 01/30/2024 11:30 AM EST Office Visit Dermatology at [place] [address] [place] [phone] Nilda Luis MD [facility] [place] [address] 02/15/2024 9:30 AM [place] [address] [place] [address] documented as of this encounter Visit Diagnoses Not on filedocumented in this encounter Care Teams Basket Hand Weaver Relationship Specialty Start Date End Date Trinh Coates MD [facility] [address] [place] [address] PCP - General 01/11/10 documented as of this encounter
--- OUTSIDE RECORDS SUMMARY | 2023-09-07 11:26 | XMS_ITS | Encounter Summary ---
Author Organization [facility] [place] [address] Care Team Providers Care Musical Instruments Assembler Name Role Phone Trinh Coates MD Primary Care Provider [phone] Reason for Visit * Reason Onset Date Comments Follow-up 11/19/2019 Encounter Details Date Type Department Care Team (Late st Contact Info) Description 11/19/2019 Telephone Hematology [place] [address] Korin Guzman, RN Follow-up Social History Tobacco Use Types Packs/Day Years [...] encounter Miscellaneous Notes * Telephone Encounter - Korin Guzman, RN - 11/19/2019 1:17 PM EDT Message received from medical secretary: Call back [phone] Wendy called to ask some questions prior to having right shoulder surgery on 12/11. Her surgeon requested that she ask if she's okay to stop tamoxifen 2 weeks before and after her surgery date. He also needs to know if they can do an IV in her left arm where she has some lymphedema and currently wears a compression sleeve. Please follow-up with Wendy with the information. Call placed to patient. All above reviewed with patient, asked if she had any other questions or concerns and patient states she just needs the answers to the questions above. Discussed with Dr. Barnett. Plan per Dr. Barnett: Yes, to the holding off tamoxifen before and after surgery, as requested. Do not use the arm with lymphedema for an iv. Call placed to patient. Above plan reviewed with patient. Pt verbalized agreement with plan and knows to call clinic with any concerns and/or questions. documented in this encounter Plan of Treatment Upcoming Encounters Date Type Department Care Team (Late st Contact Info) Description 01/22/2024 10:30 AM EST Appointment Mammography/[place] [address] Ladi Mendosa MD [facility] HEMATOLOGY/[place] [address] 01/30/2024 11:30 AM EST Office Visit Dermatology at [address] [address] Nilda Luis MD [facility] [address] [place] [address] 02/15/2024 9:30 AM EST Appointment [place] [address] [place] [address] documented as of this encounter Visit Diagnoses Not on filedocumented in this encounter Care Teams Musical Instruments Assembler Relationship Specialty Start Date End Date Trinh Coates MD [address] [place] [address] PCP - General 01/11/10 documented as of this encounter
--- OUTSIDE RECORDS SUMMARY | 2023-09-07 11:26 | XMS_ITS | Encounter Summary ---
Author Organization [facility] Address [facility] [place] [address] Care Team Providers Care Settlement Processor Name Role Phone Trinh Coates MD Primary Care Provider [phone] Encounter Details Date Type Department Care Team (Latest Contact Info) Description 01/30/2020 10:30 AM EST Procedure [place] [address] Antwon Dowell MD [facility] [place] [address] Polyneuropathy; Dysesthesia of scalp Social History Tobacco Use [...] Progress Notes * Antwon Dowell MD - 01/30/2020 10:30 AM EST I am seeing Wendy Lanier Lori for EMG nerve conduction studies for evaluation of peripheral neuropathy. Please see initial telehealth note from January 12. In the interim she mentioned increasing gabapentin at night by 300 mg a couple of nights but then forgot to do it consistently. She also mentions having intermittent leg cramps mainly at night. She denies any scalp paresthesias at the time ofthe EMG. Medications 01/30/20 1107 Medication Sig Taking? anastrozole (Arimidex) 1 mg [...] daily. fluoxetine (PROZAC) 40 mg capsule daily. On focused exam extraocular muscles intact. Strength testing in the upper and lower extremities 5 out of 5 throughout except right shoulder abduction not tested in the context of recent shoulder surgery. Reflexes 2+ throughout the upper extremities and 1+ knee jerks bilaterally. Ankle jerks trace bilaterally. Toes downgoing to plantar stimulation. Sensory exam with moderate impaired vibratory sense in the toes. Normal light touch except for some mild alteration distally in the feet to the distal garcia. Gait normal. EMG nerve conduction studies today, please see scanned report for complete data. Right sural amplitude is mildly reduced at 7.9 ??V. Left sural amplitude is slightly reduced at 9.0 ??V. The right peroneal and right tibial motor studies are normal. Left superficial peroneal studies normal. Radial sensory study on the right is normal. Focused EMG of the right lower extremity for tibialis anterior and gastroc revealed no active denervation and normal motor unit action potentials. Assessment: EMG nerve conduction studies revealed mildly reduced sural sensory amplitudes which maysuggest a mild generalized sensory peripheral neuropathy. 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 Her neuropathy symptoms occurred in the context of chemo and then she began to have itching of the scalp after completing chemo. As per previous note I cannot completely rule out a coasting phenomenon where chemotherapy contributed to some small fiber neuropathy component of the scalp but that would be highly unusual. She may have only idiopathic scalp itching process without a clear neurologic cause. She does have also a history of prediabetes with hemoglobin A1c from October of 6.0 and its possible that could also contribute to some small fiber component of her peripheral neuropathy although I think it highly unlikely contributing to her scalp paresthesias. Recommendations: As per previous note we did order peripheral neuropathy lab testing and she had that done recently although the results are not available as of yet. Pending are her vitamin B12, B1, B6, SPEP. She is already had hemoglobin A1c as above. I do not see a recent TSH but she says she has had that throughher PCP. We will call her when her results return. She can continue with gabapentin 300 mg in the morning and 600 mg in the evening. We discussed thatafter being on this for 2 weeks she could possibly then increase to 600 mg twice daily and follow-up with her PCP. We discussed depending on response she could then be further increased eventually to600 mg 3 times daily slowly but if that did not really lead any improvement of the scalp paresthesias it is unlikely further increases would and she could then slowly taper back down to have her initial dose of 300 mg twice daily which she is taking for her peripheral neuropathy. Low-dose amitriptyline could also be consideration but may lead to side effects including sedation and possible weightgain and I think if gabapentin is not helpful is unlikely amitriptyline with the much benefit. We again discussed that depending on her clinical course she could possibly referred for pain clinic consultation including consideration of low-dose naltrexone trial. She did either get a referral through her PCP or through neurology if needed. No further neurological follow-up made with me for now. We could see her in the future if needed depending on clinical course. As above we will call when her recent neuropathy labs are received. As for her leg cramps she can do stretching in the evening. We also discussed she could try vitaminB complex daily for couple months and see if that helps follow-up with her PCP. At least 10 minutes of 15-minute office follow-up portion of visit was dedicated to counseling during discussion of the scalp paresthesias as well as mild peripheral neuropathy including possible management. Time was exclusive the time for EMG nerve conduction studies. documented in this encounter Plan of Treatment Upcoming Encounters Date Type Department Care Team (Late st Contact Info) Description 01/22/2024 10:30 AM EST Appointment Mammography/[place] [phone] Ladi Mendosa MD [facility] DR HEMATOLOGY/[place] [address] 01/30/2024 11:30 AM EST Office Visit Dermatology at [address] [address] Nilda Luis MD [facility] [address] [place] [address] 02/15/2024 9:30 AM EST Appointment [place] [address] [place] [address] documented as of this encounter Visit Diagnoses Diagnosis Polyneuropathy Unspecified hereditary and idiopathic peripheral neuropathy Dysesthesia of scalp documented in this encounter Care Teams Settlement Processor Relationship Specialty Start Date End Date Trinh Coates MD [address] [place] [address] PCP - General 01/11/10 documented as of this encounter
--- OUTSIDE RECORDS SUMMARY | 2023-09-07 11:26 | XMS_ITS | Encounter Summary ---
Author Organization [facility] Address [facility] [place] [address] Care Team Providers Care Ladies Locker Room Attendant Name Role Phone Trinh Coates MD Primary Care Provider [phone] Reason for Visit * Reason Onset Date Comments Medication Refill 03/02/2021 Encounter Details Date Type Department Care Team (Late st Contact Info) Description 03/02/2021 Refill Dermatology at [facility] [address] [place] [address] Nilda Luis MD [facility] [place] [address] Psoriasis Social History Tobacco Use Types Packs/Day [...] Telephone Encounter - Cristina Gleason LPN - 03/02/2021 7:07 AM EST Medication(s) requested to refill Stelara Last visit: 05/04/20 Follow up recommended one year F/U Scheduled: 05/10/21 Assessment/Plan for this/these medications: psoriasis Appropriate to refill: yes Special Considerations: none Order/orders pended and routed to Dr. Luis for review and approval documented in this encounter Plan of Treatment Upcoming Encounters Date Type Department Care Team (Late st Contact Info) Description 01/22/2024 10:30 AM EST Appointment Mammography/[place] [address] Ladi Mendosa MD [facility] HEMATOLOGY/[place] [address] 01/30/2024 11:30 AM EST Office Visit Dermatology at [address] [place] [phone] Nilad Luis MD [facility] [address] [place] [address] 02/15/2024 9:30 AM EST [place]ointment [place] [address] [place] [address] documented as of this encounter Visit Diagnoses Diagnosis Psoriasis Other psoriasis documented in this encounter Care Teams Ladies Locker Room Attendant Relationship Specialty Start Date End Date Trinh Coates MD [facility] [address] [place] [address] PCP - General 01/11/10 documented as of this encounter
--- OUTSIDE RECORDS SUMMARY | 2023-09-07 11:26 | XMS_ITS | Encounter Summary ---
Author Organization [facility] Address [facility] [place] [address] Care Team Providers Care Golf Player Assistant Name Role Phone Trinh Coates MD Primary Care Provider [phone] Encounter Details Date Type Department Care Team (Latest Contact Info) Description 05/10/2021 Travel Social History Tobacco Use Types Packs/Day [...] 01/22/2024 10:30 AM EST Appointment Mammography[place] [address] Ladi Mendosa MD [facility] HEMATOLOGY/[place] [address] 01/30/2024 11:30 AM EST Office Visit Dermatology at [facility] [address] [place] [address] Nilda Luis MD [facility] [address] [place] [address] 02/15/2024 9:30 AM EST [place] [address] [place] [address] documented as of this encounter Visit Diagnoses Not on filedocumented in this encounter Care Teams Golf Player Assistant Relationship Specialty Start Date End Date Trinh Coates MD [facility] [address] [facility] [address] [place] [address] PCP - General 01/11/10 documented as of this encounter
--- OUTSIDE RECORDS SUMMARY | 2023-09-07 11:26 | XMS_ITS | Encounter Summary ---
Author Organization [facility] [place] [address] Care Team Providers Care Laydown Machine Operator Name Role Phone Trinh Coates MD Primary Care Provider [phone] Encounter Details Date Type Department Care Team (Late st Contact Info) Description 10/04/2021 Telephone Obstetrics [place] [address] Mana Juárez RN Social History Tobacco Use Types Packs/Day [...] encounter Miscellaneous Notes * Telephone Encounter - Mana Juárez RN - 10/04/2021 11:29 AM EDT Incoming call from Wendy Sandoval 56 y.o. No obstetric history on file to discuss concern for labia sore/lesion. Wendy reports that 4-5 days ago she noted a spot on her right labia that was raw,tender, burning and pink/red. She reports that the spot is about the size of a dime and has a clearliquid discharging from it. Reports the amount of discharge from the area is scant to light. Attempted hydrocortisone cream to reduce discomfort without relief. She also notes a new pimple appearing lesion. Reports this has not occurred before, but she did have exam for vulvar rash in 2019. Denies new sexual partners and concern for STD/STI. Denies VB, abnormal vaginal discharge, fevers,chills, nausea, vomiting, diarrhea, and dysuria. Due to patient experiencing new lesions recommended she have an acute appointment for assessment. Patient transferred to secretaries to schedule. documented in this encounter Plan of Treatment Upcoming Encounters Date Type Department Care Team (Late st Contact Info) Description 01/22/2024 10:30 AM EST Appointment Mammography/DXA at [place] [phone] Ladi Mendosa MD [facility] HEMATOLOGY/[place] [address] 01/30/2024 11:30 AM EST Office Visit Dermatology at [address] [address] Nilda Luis MD [facility] [place] [address] 02/15/2024 9:30 AM EST [place]ointment [place] [address] [place] [address] documented as of this encounter Visit Diagnoses Not on filedocumented in this encounter Care Teams Laydown Machine Operator Relationship Specialty Start Date End Date Trinh Coates MD [facility] [address] [place] [address] PCP - General 01/11/10 documented as of this encounter
--- OUTSIDE RECORDS SUMMARY | 2023-09-07 11:26 | XMS_ITS | Encounter Summary ---
[place] [address] Care Team Providers Care Color Paste Mixer Name Role Phone Trinh Coates MD Primary Care Provider [phone] Encounter Details Date Type Department Care Team (Late st Contact Info) Description 08/26/2019 Telephone [place]rology [place] [phone] Tahira Cedeno Social History Tobacco Use Types Packs/Day Years [...] Miscellaneous Notes * Telephone Encounter - Tahira Cedeno - 08/26/2019 10:55 AM EDT Recall Information: Recall Date: 04/24/19 Provider: Samir Visit Type: OV Reason/Notes: f/u 3 months Communication History: User: TAHIRA CEDENO Date/time: 08/26/19 10:54 AM Comment: LMOM x2 Context: [place]asta Recall Report Outcome: Left Message Phone number: [phone] Phone Type: ?? Comm. type: Telephone Call type: Outgoing Contact: Wendy Sandoval Relation to patient: Self User: TAHIRA CEDENO Date/time: 08/26/19 10:54 AM Comment: letter sent x2 Context: [place]asta Recall Report Outcome: No Answer - Letter Sent Phone number: [phone] Phone Type: ?? Comm. type: Telephone Call type: Outgoing Contact: LoriWendy Relation to patient: Self User: SANDIE TONEY Date/time: 07/23/19 2:30 PM Comment: Sent ltr. x1 Context: [place]asta Recall Report Outcome: No Answer - Letter Sent Phone number: [phone] Phone Type: ?? Comm. type: Telephone Call type: Outgoing Contact: LoriWendy Relation to patient: Self User: GUDELIANSANDIE H Date/time: 07/23/19 2:11 PM Comment: LMOM x1 Context: [place] Recall Report Outcome: Left Message Phone number: [phone] Phone Type: ?? Comm. type: Telephone Call type: Outgoing Contact: Wendy Sandoval Relation to patient: Self documented in this encounter Plan of Treatment Upcoming Encounters Date Type Department Care Team (Late st Contact Info) Description 01/22/2024 10:30 AM EST Appointment Mammography/DXA at [place] [phone] Ladi Mendosa MD [facility] HEMATOLOGY/[place] [address] 01/30/2024 11:30 AM EST Office Visit Dermatology at [address] [address] Nilda Luis MD [facility] [address] [place] [address] 02/15/2024 9:30 AM EST [place] [address] [place] [address] documented as of this encounter Visit Diagnoses Not on filedocumented in this encounter Care Teams Color Paste Mixer Relationship Specialty Start Date End Date Trinh Coates MD [facility] [address] [place] [address] PCP - General 01/11/10 documented as of this encounter
--- OUTSIDE RECORDS SUMMARY | 2023-09-07 11:26 | XMS_ITS | Encounter Summary ---
Author Organization [facility] Address [facility] [place] [address] Care Team Providers Care Donor Specialist Name Role Phone Trinh Coates MD Primary Care Provider [phone] Encounter Details Date Type Department Care Team (Late st Contact Info) Description 07/21/2021 1:45 PM EDT Office Visit Radiation Oncology at [address] [phone] Tahira Cardenas, FARMWORKER [employer]GETABLE [facility] [place] [address] Hormone receptor positive malignant neoplasm [...] Sign Reading Time Taken Comments Blood Pressure 121/69 07/21/2021 1:50 PM EDT Pulse 66 07/21/2021 1:50 PM EDT Temperature 36.4 ??C (97.5 ??F) 07/21/2021 1:50 PM ED T Respiratory Rate 18 07/21/2021 1:50 PM EDT Oxygen Saturation 98% 07/21/2021 1:50 PM EDT Inhaled Oxygen Concentration - - Weight 77.6 kg (171 lb) 07/21/2021 1:50 PM EDT Height 154.9 cm (5' 0.98) 07/21/2021 1:50 PM ED T Body Mass Index 32.33 07/21/2021 1:50 PM EDT documented in this encounter Progress Notes * Tahira Cardenas, AARTI - 07/21/2021 1:45 PM EDTSummary: 55 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 completed xrt (03/11/18). s/p B skin sparing mast . Arreaga and Arimedex switched [facility] [place] [address] Phone: RADIATION ONCOLOGY FOLLOW UP NOTE Date of visit: 07/21/2021 Patient Wendy Sandoval 1965 PCP: Trinh Coates [...] for breast ca, L, IDC, gr 3, ER+MT+, 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 Adjuvant chemo then given, followed by bus assistant exchange for implants. ?? She was taking arreaga, started after xrt completion; switched to arimidex for a while, then back to arreaga, then back to arimidex. At this time she has been switched to exemestane and now on for approximately 8 months she feels she is not having any symptoms or side effects with medication. ?? 10/18/18 lymphovenous bypass L upper ext by Dr. Gimenez. ?? 9/11/19 fu w/Rashaad Azevedo APRN Plastics, resume PT for lymphedema. ?? 07/09/19 [...] R rotator cuff by Ortho group in [facility]. ?? Subjective: Aches & pains in [...] the lymphedema problem of her left arm. ?? Interim HPI: Her mother was diagnosed with lymphoma in her abdomen. Her mother is in her 80s and does not quite understand what the diagnosis is completely. Wendy brought her mother here from [place] for her treatment. There is a ceratin amt of concern for memory issues and perhaps a bit of chemo brain fog in this regard there is concern about her mother wanting to return to home in [place] without the support s he needs. We discussed neuro cognitive testing for her mom which can happen here and she should bring to attn of the tx oncologist. 03/11/21 Nephrology visit (follows q6 months) #Creatinine elevation??suspect likely CKD stage III CR??1.4??->??eGFR??38ml/min?? #Hyperaldosteroism BP is well controlled at 121/69 Bilateral disease per renal vein sampling. Medications 03/11/21 1100 Medication Sig Taking? ustekinumab (Stelara) 45 mg/0.5 mL subcutaneous injection MAINTENANCE: INJECT 1 SYRINGE SUBCUTANEOUSLY EVERY 12 WEEKS. REFRIGERATE. DO NOT FREEZE exemestane (Aromasin) 25 mg Tablet Take 1 tablet by mouth daily. rosuvastatin (Crestor) 10 mg Tablet TAKE 1 TABLET BY MOUTH DAILY AT BEDTIME clobetasoL (TEMOVATE) 0.05 % Solution Apply topically to scalp once daily as needed. clobetasoL (TEMOVATE) 0.05 % Cream Apply to affected areas on knees, elbows and hands twice daily for two week cycles as needed. ibuprofen (ADVIL;MOTRIN) 200 mg Tablet Take 200 [...] IR Drain Check/Change/Remove 11/20/2017 Marcos Dey MD [facility] INTERVENTION[facility] RAD ??? IR MEDIPORT REMOVAL 01/25/2018 IR Mediport Removal 01/25/2018 Scooby Muñoz APRN [facility] INTER[facility] RAD ??? PRG EMG, LARYNX N/A 11/02/2015 FACIAL NERVE MONITORING, SETUP LARYNGEAL performed by Valentina Lucas MD at [facility] MAIN OR ??? PRO BREAST RECONSTRUCTION IMMT/DLYD W/TISS MACHINE FASTENER SBSQ EXPANSION Bilateral 04/26/2017 BREAST RECONSTRUCTION, IMMEDIATE OR DELAYED, W/ TISSUE MACHINE FASTENER, INCLUDING SUBSEQUENT EXPANSION (WRVU 18.5) performed by Andre Gimenez MD at [facility] OR ??? PRO BREAST RECONSTRUCTION W FREE FLAP Bilateral 04/26/2017 @BREAST RECONSTRUCTION W/ FREE FLAP, SUSAN (WRVU 42.58) performed by Andre Gimenez MD at [facility] [place] ??? PRO BREAST RECONSTRUCTION W/LATSMS D/SI FLAP WO PRSTHC IMPL Bilateral 12/12/2017 @BREAST RECONSTRUCTION W/ LAT DORSI FLAP,W/O IMPLANT, SUSAN (WRVU 23.36) performed by Andre Gimenez MD at [facility] OR ? ? PRO DEBRIDEMENT SUBCUTANEOUS TISSUE 20 SQCM/< 06/22/2017 DEBRIDEMENT SKIN AND SUBCU, BREAST (WRVU 1.01) performed by Andre Gimenez MD at [facility] OR ??? PRO EXPLORE PARATHYROID GLANDS N/A 11/02/2015 PARATHYROIDECTOMY OR EXPLORATION OF PARATHYROID(S) performed by Valentina Lucas MD at [facility] OR ? ? PRO FULL THICK GRFT TRUNK <20 SQCM Bilateral 04/26/2017 FTSG, FREE, DIR CLOSE DONOR SITE, TRUNK, 20 SQ CM OR LESS (WRVU 9.15) performed by Andre Gimenez MD at [facility] OR ??? PRO INCISION OF LYMPH CHANNELS Left 10/18/2018 INCISION & DRAINAGE LYMPHOCELE (WRVU 6.81) performed by Andre Gimenez MD at [facility] OR ??? PRO IV INJ TO TEST BLOOD FLOW IN FLAP/GRAFT Left 10/18/2018 IV INJECTION, AGENT TO TEST VASC FLOW IN FLAP OR GRAFT, ENT (WRVU 1.95) performed by Andre Gimenez MD at [facility] OR ??? PRO MASTECTOMY, SIMPLE, COMPLETE Bilateral 04/26/2017 MASTECTOMY, SIMPLE, COMPLETE-SUSAN (WRVU 15.85) performed by Jolie Menendez MD at [facility] OR ??? PRO PARTIAL REMOVAL OF RIB Bilateral 04/26/2017 EXCISION OF RIB, PARTIAL (WRVU 7.26) performed by Andre Gimenez MD at [facility] MAIN OR ??? PRO REMOVE ARMPITS LYMPH NODES COMPLT Left 04/26/2017 LYMPHADENECTOMY, AXILLARY, COMPLETE (WRVU 13.87) performed by Jolie Menendez MD at [facility] OR ??? PRO REPLACE TISSUE MACHINE FASTENER Bilateral 12/12/2017 TISSUE MACHINE FASTENER REPLACEMENT, WITH PERMANENT PROSTHESIS, SUSAN (WRVU 8.01) performed by Andre Gimenez MD at [facility] OR ??? PRO REVISION RECONSTRUCTED BREAST Left 06/22/2017 REVISION OF RECONSTRUCTED BREAST (WRVU 10.41) performed by Andre Gimenez MD at [facility] OR ??? PRO REVISION RECONSTRUCTED BREAST Bilateral 12/12/2017 REVISION OFRECONSTRUCTED BREAST, SUSAN (WRVU 10.41) performed by Andre Gimenez MD at [facility] OR ??? PRO THYMECTOMY, TRANSCERVICAL N/A 11/02/2015 THYMECTOMY, TRANSCERVICAL APPROACH performed by Valentina Lucas MD at [facility] MAIN OR ??? SHOULDER SURGERY Left [...] Former Smoker Quit date: 08/07/1991 Years since quittin.9 ??? Smokeless tobacco: Never Used Vaping Use [...] her own breast cancer. Torn ACL w/ Dec surgery and her mother recent diagnosis of [...] chair Physical Examination: Body mass index is 32.33 kg/m??. BP 121/69 (Patient Position: Sitting) Pulse 66 Temp 36.4 ??C (97.5 ??F) (Temporal) Resp 18 Ht 154.9 cm (5' 0.98) Wt 77.6 kg (171 lb) Constitutional: seen by self in clinic , [...] this Visit: Bilateral mastectomies with prosthetics. Assessment: 56 y.o. presenting for follow up of breast [...] injury/inflammation. # survivorship concerns: At this time she feels recovered from her orthopedic surgery. The most pressing matter is her mother's lymphoma diagnosis and need for completion of treatment tx here locally. She worries about her mother returning to her home in [place] with some mentation/cognitive issues. # lifestyle/wellness concerns: # Reviewed: Symptoms that [...] to the radiation therapy/breast cancer Next visit: one year With bilateral mastectomies no mammogram is scheduled. Tahira Cardenas MSN, [employer], GENERAL STUDIES PROGRAM CHAIR-C Nurse Practitioner Radiation Oncology documented in this encounter Plan of Treatment Upcoming Encounters Date Type Department Care Team (Late st Contact Info) Description 01/22/2024 10:30 AM EST Appointment Mammography/[place] [address] Ladi Mendosa MD [facility] HEMATOLOGY/[place] [address] 01/30/2024 11:30 AM EST Office Visit Dermatology at [facility] [address] [place] [address] Nilda Luis MD [facility] [address] [address] 02/15/2024 9:30 AM EST Appointment [place] [phone] [place] [address] documented as of this encounter Visit Diagnoses Diagnosis Hormone receptor positive malignant neoplasm of left breast documented in this encounter Care Teams Donor Specialist Relationship Specialty Start Date End Date Trinh Coates MD [facility] [address] [place] [address] PCP - General 01/11/10 documented as of this encounter
--- OUTSIDE RECORDS SUMMARY | 2023-09-07 11:26 | XMS_ITS | Encounter Summary ---
[place] [address] Care Team Providers Care Housekeeper Caregiver Name Role Phone Trinh Coates MD Primary Care Provider [phone] Reason for Visit * Reason Comments Prior Authorization Stelara 45mg/0.5mL S OSY Encounter Details Date Type Department Care Team (Late st Contact Info) Description 09/16/2019 Specialty [place] [address] Carrington Encarnacion Social History Tobacco Use Types Packs/Day Years [...] as of this encounter Progress Notes * Carrington Encarnacion - 09/16/2019 9:36 AM EDT [facility], Prior Authorization Approval Medication Name: STELARA 45 MG/0.5 ML SUBCUTANEOUS SYRINGE Medication ID: [id number] Fillable at [facility] Specialty Pharmacy: No Approval Dates: 09/15/2019 to 09/14/2020 Insurance requirements/notes: MUST BE FILLED THROUGH [facility] Other Notes: None Case/Reference #: [id number] Approval notification Received via: Telephone Copay: Copay assistance: Copay Card Copay Notes: PATIENT CAN GET COPAY CARD IF PT DOES NOT HAVE COPAY CARD ALREADY Insurance mandated Pharmacy: [facility] Specialty Pharmacy staff will be reaching out to the patient to inform them of their medication's [facility]. If applicable, a pharmacist will speak with the patient to offer our specialty pharmacy services and to arrange delivery of their medication. documented in this encounter Plan of Treatment Upcoming Encounters Date Type Department Care Team (Late st Contact Info) Description 01/22/2024 10:30 AM EST Appointment Mammography/DXA at [place] [phone] Ladi Mendosa MD [facility] HEMATOLOGY/ONCOLOGY [place] [phone] 01/30/2024 11:30 AM EST Office Visit Dermatology at [address] [place] [phone] Nilda Luis MD [facility] [address] [address] 02/15/2024 9:30 AM EST Appointment [place] [phone] [place] [address] documented as of this encounter Visit Diagnoses Not on filedocumented in this encounter Care Teams Housekeeper Caregiver Relationship Specialty Start Date End Date Trinh Coates MD [facility] [address] [place] [address] PCP - General 01/11/10 documented as of this encounter
--- OUTSIDE RECORDS SUMMARY | 2023-09-07 11:26 | XMS_ITS | Encounter Summary ---
Author Organization [facility] [address] Care Team Providers Care Slot Service Specialist Name Role Phone Trinh Coates MD Primary Care Provider [phone] Reason for Visit * Reason Onset Date Comments Medication Refill 10/13/2021 Encounter Details Date Type Department Care Team (Late st Contact Info) Description 10/13/2021 Refill Hematology [place] [phone] Arpita Ordonez RN Malignant neoplasm of upper-outer quadrant of left [...] Telephone Encounter - Arpita Ordonez RN - 10/13/2021 8:46 AM EDT ----- Message from Yolis Edward sent at 10/13/2021 8:14 AM EDT ----- Regarding: med/david Wendy called and was told by her pcp that she needed to get her exemestane (Aromasin) 25 mg Tablet by us. Please call and discuss with her [phone] Received request via [employer] for refill of exemestane. Per review of medical record- tamoxifen, tried switch to anastrazole, return to tamoxifen b/o side effects. December 2019, switched back to anastrazole. Sep 2020 switched to aromasin Per review of medical record, refill is appropriate. Last prescribed 10/07/20 Script prepared and sent to provider for review, signature and escribe. documented in this encounter Plan of Treatment Upcoming Encounters Date Type Department Care Team (Late st Contact Info) Description 01/22/2024 10:30 AM EST Appointment Mammography/DXA at [place] [phone] Ladi Mendosa MD [facility] HEMATOLOGY/[place] [address] 01/30/2024 11:30 AM EST Office Visit Dermatology at [address] [phone] Nilda Luis MD [facility] [place] [address] 02/15/2024 9:30 AM EST Appointment [place] [phone] [place] [address] documented as of this encounter Visit Diagnoses Diagnosis Malignant neoplasm of upper-outer quadrant of left breast in female, estrogen receptor positive documented in this encounter Care Teams Slot Service Specialist Relationship Specialty Start Date End Date Trinh Coates MD [address] [place] [address] PCP - General 01/11/10 documented as of this encounter
--- OUTSIDE RECORDS SUMMARY | 2023-09-07 11:26 | XMS_ITS | Encounter Summary ---
Author Organization [facility] Address [facility] [place] [address] Care Team Providers Care Quilt Maker Name Role Phone Trinh Coates MD Primary Care Provider [phone] Reason for Visit * Reason Comments Radiation Follow-up Encounter Details Date Type Department Care Team (Late st Contact Info) Description 12/29/2019 3:00 PM EST Office Visit Radiation Oncology at [address] [phone] Emily Choi MD [facility] DR [place] [address] Hormone receptor positive malignant neoplasm [...] Sign Reading Time Taken Comments Blood Pressure 162/87 12/29/2019 3:03 PM EST Pulse 73 12/29/2019 3:03 PM EST Temperature 37.2 ??C (99 ??F) 12/29/2019 3:0 3 PM EST Respiratory Rate 18 12/29/2019 3:03 PM EST Oxygen Saturation 100% 12/29/2019 3:0 3 PM EST Inhaled Oxygen Concentration - - Weight 86.5 kg (190 lb 9.6 oz) 12/29/2019 3:03 PM EST with shoes and arm sling Height - - Body Mass Index 36.01 09/19/2019 10:34 AM EDT documented in this encounter Patient Instructions * Patient Instructions* Emily Choi MD - 12/29/2019 3:00 PM EST Your exam is without worrisome finding. Followup with me in 6 months is advised. Someone will contact you to schedule appointment. documented in this encounter Progress Notes * Emily Choi MD - 12/29/2019 3:00 PM EST Images from the original note were not included. CC: Sched'd fu s/p xrt completion. HPI: Wendy is a 54 y/o f who completed xrt 1 yr., 9.5 mos ago (03/11/18) for breast ca, L, IDC, gr3, ER+OR+, Her2 FISH neg, s/p B skin sparing mastectomies w/B free nipple grafts & L ax dissxn;immed B free flap recon attempted but could not be done due to flap arterial spasms; expanders placed; pT1c pN2a. Adjuvant chemo then given, followed by performance consultant exchange for implants. She is taking anne, started after xrt completion; switched to arimidex for a while & then back to anne. 10/18/18 lymphovenous bypass L upper ext by Dr. Gimenez. 10/30/18 fu w/Monserrat. AARTI [facility], resume PT for lymphedema. 07/09/19 bone [...] R rotator cuff by Ortho group in [facility]. Subjective: Recovering well from R shoulder surgery, expected to gain significant ROM from surgery.Swelling of L upper ext fluctuates but usually not too bothersome, since R shoulder surgery has notbeen wearing lymphedema glove & sleeve because too difficult w/R arm in sling & @ present just a little swelling in L hand/arm. No pain. Energy level good Past Medical History: Diagnosis Date ??? Fibrocystic [...] IR Drain Check/Change/Remove 11/20/2017 Marcos Dey MD [facility] INTERVENTIONL RAD ??? IR MEDIPORT REMOVAL 01/25/2018 IR Mediport Removal 01/25/2018 Scooby Muñoz, AARTI [facility] INTERVENTION[facility] RAD ??? PRG EMG, LARYNX N/A 11/02/2015 FACIAL NERVE MONITORING, SETUP LARYNGEAL performed by Valentina Lucas MD at [facility] OR ??? PRO BREAST RECONSTRUC W FREE FLAP Bilateral 04/26/2017 @BREAST RECONSTRUCTION W/ FREE FLAP, SUSAN (WRVU 42.58) performed by Andre Gimenez MD at [facility] [place] ??? PRO BREAST RECONSTRUC W FREE FLAP, W/O IMPLANT Bilateral 12/12/2017 @BREAST RECONSTRUCTION W/ LAT DORSI FLAP,W/O IMPLANT, SUSAN (WRVU 23.36) performed by Andre Gimenez MD at [facility] MAIN OR ??? PRO BREAST RECONSTRUC W TISS EXPANDR Bilateral 04/26/2017 BREAST RECONSTRUCTION, IMMEDIATE OR DELAYED, W/ TISSUE MINING SPECULATOR, INCLUDING SUBSEQUENT EXPANSION (WRVU 18.5) performed by Andre Gimenez MD at [facility] MAIN OR ? ? PRO DEBRIDEMENT SUBCUTANEOUS TISSUE 20 SQCM/< 06/22/2017 DEBRIDEMENT SKIN AND SUBCU, BREAST (WRVU 1.01) performed by Andre Gimenez MD at [facility] OR ??? PRO EXPLORE PARATHYROID GLANDS N/A 11/02/2015 PARATHYROIDECTOMY OR EXPLORATION OF PARATHYROID(S) performed by Valentina Lucas MD at [facility] OR ? ? PRO FULL THICK GRFT TRUNK <20 SQCM Bilateral 04/26/2017 FTSG, FREE, DIR CLOSE DONOR SITE, TRUNK, 20 SQ CM OR LESS (WRVU 9.15) performed by Andre Gimenez MD at [facility] OR ??? PRO INCISION OF LYMPH CHANNELS Left 10/18/2018 INCISION & DRAINAGE LYMPHOCELE (WRVU 6.81) performed by Andre Gimenez MD at [facility] OR ??? PRO IV INJ TO TEST BLOOD FLOW IN FLAP/GRAFT Left 10/18/2018 IV INJECTION, AGENT TO TEST VASC FLOW IN FLAP OR GRAFT, ENT (WRVU 1.95) performed by Andre Gimenez MD at [facility] OR ??? PRO MASTECTOMY, SIMPLE, COMPLETE Bilateral 04/26/2017 MASTECTOMY, SIMPLE, COMPLETE-SUSAN (WRVU 15.85) performed by Jolie Menendez MD at [facility] OR ??? PRO PARTIAL REMOVAL OF RIB Bilateral 04/26/2017 EXCISION OF RIB, PARTIAL (WRVU 7.26) performed by Andre Gimenez MD at [facility] OR ??? PRO REMOVE ARMPITS LYMPH NODES COMPLT Left 04/26/2017 LYMPHADENECTOMY, AXILLARY, COMPLETE (WRVU 13.87) performed by Jolie Menendez MD at [facility] OR ??? PRO REPLACE TISSUE MINING SPECULATOR Bilateral 12/12/2017 TISSUE MINING SPECULATOR REPLACEMENT, WITH PERMANENT PROSTHESIS, SUSAN (WRVU 8.01) performed by Andre Gimenez MD at [facility] OR ??? PRO REVISION RECONSTRUCTED BREAST Left 06/22/2017 REVISION OF RECONSTRUCTED BREAST (WRVU 10.41) performed by Andre Gimenez MD at [facility] OR ??? PRO REVISION RECONSTRUCTED BREAST Bilateral 12/12/2017 REVISION OFRECONSTRUCTED BREAST, SUSAN (WRVU 10.41) performed by Andre Gimenez MD at [facility] OR ??? PRO THYMECTOMY, TRANSCERVICAL N/A 11/02/2015 THYMECTOMY, TRANSCERVICAL APPROACH performed by Valentina Lucas MD at [facility] MAIN OR ??? SHOULDER SURGERY Left ??? UMBILICAL HERNIA REPAIR Your Medications Accurate as of December 29, 2019 11:59 PM. If you have any questions, ask your nurse or doctor. Continued medications, unchanged Dose Details acetaminophen 325 mg Tab Commonly known as: Tylenol Take 2 tablets by mouth every 4 hours as needed for Pain. 650 mg Refills: 0 atorvastatin 20 mg Tab Commonly known as: Lipitor Take 1 tablet by mouth daily. 1 tablet Refills: 0 * clobetasoL 0.05 % Soln Commonly known [...] tablet by mouth once daily Refills: 0 potassium chloride 20 mEq Tbsr 1 tablet daily. 1 tablet Refills: 0 spironolactone 25 mg Tab Commonly known as: Aldactone Take 1 tablet by mouth daily. 25 mg Quantity: 90 tablet Refills: 3 Stelara 45 mg/0.5 mL subcutaneous injection Inject 0.5 mLs subcutaneously Every 12 weeks. Generic drug: ustekinumab 45 mg Quantity: 1 Syringe Refills: 0 tamoxifen 20 mg Tab Commonly known as: [...] well- developed and well-nourished. No distress. BP 162/87 (Patient Position: Sitting) Pulse 73 Temp 37.2 ??C (99 ??F) (Temporal) Resp 18 Wt 86.5 kg (190 lb 9.6 oz) Comment: with shoes and arm sling SpO2 100% BMI 36.01 kg/m?? HENT: Head: Normocephalic and atraumatic. Eyes: Conjunctivae and EOM are normal. Right eye exhibits no discharge. Left eye exhibits no discharge. No scleral icterus. Neck: Normal range of motion. Neck supple. No tracheal deviation present. No thyromegaly present. Pulmonary/Chest: Effort normal. No stridor. No respiratory distress. S/p B mastectomies w/B recon w/free nipple grafts. No hyperpigmentation/erythema. No visible/palpable ca on chest. Abdominal: Soft. She exhibits no distension and no mass. There is no tenderness. There is no rebound and no guarding. Musculoskeletal: R arm in sling. She exhibits +1 edema dorsal L hand. Nl ROM L arm @ shoulder. Lymphadenopathy: Head (right side): No [...] is normal. Judgment and thought contentnormal. A: GAVINO P: Rtc 6 mos. documented in this encounter Plan of Treatment Upcoming Encounters Date Type Department Care Team (Late st Contact Info) Description 01/22/2024 10:30 AM EST Appointment Mammography/DXA at [place] [phone] Ladi Mendosa MD [facility] HEMATOLOGY/[place] [address] 01/30/2024 11:30 AM EST Office Visit Dermatology at [address] [phone] Nilda Luis MD [facility] [place] [address] 02/15/2024 9:30 AM EST Appointment [place] [phone] [place] [address] documented as of this encounter Visit Diagnoses Diagnosis Hormone receptor positive malignant neoplasm of left breast documented in this encounter Care Teams Quilt Maker Relationship Specialty Start Date End Date Trinh Coates MD [facility] [address] [place] [address] PCP - General 01/11/10 documented as of this encounter
--- OUTSIDE RECORDS SUMMARY | 2023-09-07 11:27 | XMS_ITS | Encounter Summary ---
Author Organization [facility] Address [facility] [place] [address] Care Team Providers Care Vacuum Cleaner Mechanic Name Role Phone Trinh Coates MD Primary Care Provider [phone] Encounter Details Date Type Department Care Team (Late st Contact Info) Description 11/15/2018 Telephone Hematology [place] [address] Susana Paulson APRN [facility] DR HEMATOLOGY [place] [address] Social History Tobacco Use Types Packs/Day Years Used Date Smoking Tobacco: Former Smokeless Tobacco: Never Alcohol Use Standard Drinks/Week Comments Yes 0 (1 standard drink = 0.6 oz pur e alcohol) socially once a month Sex and Gender Information Value Date Recorded Sex Assigned at Not on file Gender Identity Not on file Sexual Orientation Not on file documented as of this encounter Miscellaneous Notes * Telephone Encounter - Susana Paulson, RN - 11/15/2018 10:36 AM EDT Request for New Compression sleeve and gauntlet received. Orders entered, signed, and faxed to [facility] at [phone]. documented in this encounter Plan of Treatment Upcoming Encounters Date Type Department Care Team (Late st Contact Info) Description 01/22/2024 10:30 AM EST Appointment Mammography/[place] [address] Ladi Mendosa MD [facility] HEMATOLOGY/[place] [address] 01/30/2024 11:30 AM EST Office Visit [facility] at [facility] [address] [place] [phone] Nilda Luis MD [facility] DR LIDIA [place] [address] 02/15/2024 9:30 AM EST Appointment Radiology at [place] [phone] [place] [address] documented as of this encounter Visit Diagnoses Diagnosis Malignant neoplasm of upper-outer quadrant of left breast in female, estrogen receptor positive documented in this encounter Care Teams Vacuum Cleaner Mechanic Relationship Specialty Start Date End Date Trinh Coates MD [facility] [place] [address] [address] PCP - General 01/11/10 documented as of this encounter
--- OUTSIDE RECORDS SUMMARY | 2023-09-07 11:27 | XMS_ITS | Encounter Summary ---
Author Organization [facility] Address [facility] [place] [address] Care Team Providers Care Security System Engineer Name Role Phone Trinh Coates MD Primary Care Provider [phone] Encounter Details Date Type Department Care Team (Late st Contact Info) Description 06/29/2019 Telephone Hematology/Oncology at [address] [phone] Cosme Sawyer Social History Tobacco Use Types Packs/Day Years [...] encounter Miscellaneous Notes * Telephone Encounter - Cosme Sawyer - 06/29/2019 3:32 PM EDT Called Wendy to inform her of the following: As a new precaution with COVID-19 we are calling all patients before they come in for their appointment to screen for any potential symptoms. 1. EXPOSURE: ???Have you been in contact with anyone suspected or confirmed to have COVID-19 in thepast 14 days??? Yes/No 2. Do you have a fever, cough, or shortness of breath? Yes/No [if they say yes to symptoms but no to exposure OR yes to symptoms and yes to exposure include the following and route to triage] I am going to forward this information on to our triage nurse. Someone should be calling you about next steps in regards to your appointment. Another precaution we are taking is that we are not allowing visitors at this time. If needed, someone may bring you to your appointment but they will be asked to wait outside. If you develop symptoms of shortness of breath, cough, or fever prior to your appointment do not come in for your appointment. Please call the Cancer Center before coming in. documented in this encounter Plan of Treatment Upcoming Encounters Date Type Department Care Team (Late st Contact Info) Description 01/22/2024 10:30 AM EST Appointment Mammography/DXA at [place] [phone] Ladi Mendosa MD [facility] HEMATOLOGY/[place] [address] 01/30/2024 11:30 AM EST Office Visit Dermatology at [address] [phone] Nilda Luis MD [facility] DR [place] [address] 02/15/2024 9:30 AM [place] [address] [place] [address] documented as of this encounter Visit Diagnoses Not on filedocumented in this encounter Care Teams Security System Engineer Relationship Specialty Start Date End Date Trinh Coates MD [facility] [place] [address] [place] [address] PCP - General 01/11/10 documented as of this encounter
--- OUTSIDE RECORDS SUMMARY | 2023-09-07 11:27 | XMS_ITS | Encounter Summary ---
Author Organization [facility] Address [facility] Margarita [place] [address] Care Team Providers Care Architectural Drafter Name Role Phone Trinh Coates MD Primary Care Provider [phone] Encounter Details Date Type Department Care Team (Late st Contact Info) Description 03/07/[address] 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 I left a brief message with the above results. Anderson Zhou MD PhD Dermatology Resident documented in this encounter Plan of Treatment Upcoming Encounters Date Type Department Care Team (Late st Contact Info) Description 01/22/2024 10:30 AM EST Appointment Mammography/[place] [phone] Ladi Mendosa MD [facility] HEMATOLOGY/[place] [address] 01/30/2024 11:30 AM EST Office Visit Dermatology at [place] [address] [place] [phone] Nilda Luis MD [facility] DR [address] [address] 02/15/2024 9:30 AM EST Appointment [place] [address] [place] [address] documented as of this encounter Visit Diagnoses Not on filedocumented in this encounter Care Teams Architectural Drafter Relationship Specialty Start Date End Date Trinh Coates MD [facility] [address] [place] [address] PCP - General 01/11/10 documented as of this encounter
--- OUTSIDE RECORDS SUMMARY | 2023-09-07 11:27 | XMS_ITS | Encounter Summary ---
Author Organization [facility] Address [facility] [place] [address] Care Team Providers Care Renewable Energy Broker Name Role Phone Trinh Coates MD Primary Care Provider [phone] Reason for Visit * Reason Comments Radiation Follow-up Encounter Details Date Type Department Care Team (Late st Contact Info) Description 12/02/2018 1:00 PM EDT Office Visit Radiation Oncology at [address] [phone] Emily Choi MD [facility] [place] [address] Hormone receptor positive malignant neoplasm [...] Sign Reading Time Taken Comments Blood Pressure 139/81 12/02/2018 1:07 PM EDT Pulse 95 12/02/2018 1:07 PM EDT Temperature 37 ??C (98.6 ??F) 12/02/2018 1:0 7 PM EDT Respiratory Rate 16 12/02/2018 1:07 PM EDT Oxygen Saturation 100% 12/02/2018 1:0 7 PM EDT Inhaled Oxygen Concentration - - Weight 80.9 kg (178 lb 6.4 oz) 12/03/19 1:07 PM EDT with shoes Height - - Body Mass Index 33.68 05/29/2018 2:54 PM EDT documented in this encounter Patient Instructions * Patient Instructions* Emily Choi MD - 12/02/2018 1:00 PM EDT Your exam is without worrisome finding. We will mail you a letter with an appointment for followup with me in 6 months. documented in this encounter Progress Notes * Emily Choi MD - 12/02/2018 1:00 PM EDT Images from the original note were not included. CC: Sched'd fu s/p xrt completion. HPI: 53 y/o f who completed xrt 8.5 mos ago (03/11/18) for breast ca, L, IDC, gr 3, ER+RI+, Her2 FISH neg, s/p B skin sparing mastectomies w/B free nipple grafts & L ax dissxn; immed B free flap recon attempted but could not be done due to flap arterial spasms; expanders placed; pT1c pN2a. Adjuvant chemo then given, followed by cleaning team member exchange for implants. She is taking anne, started after xrt completion. 10/18/18 lymphovenous bypass L upper ext by Dr. Gimenez. 10/30/18 fu w/[facility], resume PT for lymphedema. ROS: Dry itchy scalp; says a derm told her it is likely from anne. Swelling of L upper ext decreasedby 60% since lymphatic bypass by Dr. Gimenez. She has been doing MLD for intermittent swelling L breast & has last PT appt tomorrow; MLD effective. Recent return from trip to [place], [place] where she spent a lot of time on her feet & she notes /increased B leg swelling since the trip; B leg swelling present since starting spironolactone. Skin w/in irrad'd area ok. Energy level ok. Past Medical History: Diagnosis Date ??? Fibrocystic [...] IR Drain Check/Change/Remove 11/20/2017 Marcos Dey MD [facility] INTERVENTIONL RAD ??? IR MEDIPORT REMOVAL 01/25/2018 IR Mediport Removal 01/25/2018 Scooby Muñoz, AARTI [facility] INTERVENTIONL RAD ??? PRG EMG, LARYNX N/A 11/02/2015 FACIAL NERVE MONITORING, SETUP LARYNGEAL performed by Valentina Lucas MD at [facility] OR ??? PRO BREAST RECONSTRUC W FREE FLAP Bilateral 04/26/2017 @BREAST RECONSTRUCTION W/ FREE FLAP, SUSAN (WRVU 42.58) performed by [facility] ??? PRO BREAST RECONSTRUC W FREE FLAP, W/O IMPLANT Bilateral 12/12/2017 @BREAST RECONSTRUCTION W/ LAT DORSI FLAP,W/O IMPLANT, SUSAN (WRVU 23.36) performed by Andre Gimenez MD at [facility] OR ??? PRO BREAST RECONSTRUC W TISS EXPANDR Bilateral 04/26/2017 BREAST RECONSTRUCTION, IMMEDIATE OR DELAYED, W/ TISSUE MOTOR VEHICLE COMPLIANCE ANALYST, INCLUDING SUBSEQUENT EXPANSION (WRVU 18.5) performed by Andre Gimenez MD at [facility] OR ? ? PRO DEBRIDEMENT SUBCUTANEOUS TISSUE 20 SQCM/< 06/22/2017 DEBRIDEMENT SKIN AND SUBCU, BREAST (WRVU 1.01) performed by Andre Gimenez MD at [facility] OR ??? PRO EXPLORE PARATHYROID GLANDS N/A 11/02/2015 PARATHYROIDECTOMY OR EXPLORATION OF PARATHYROID(S) performed by Valentina Lucas MD at [facility] OR ? ? PRO FULL THICK GRFT TRUNK <20 SQCM Bilateral 04/26/2017 FTSG, FREE, DIR CLOSE DONOR SITE, TRUNK, 20 SQ CM OR LESS (WRVU 9.15) performed by Andre Gimenez MD at [facility] OR ??? PRO INCISION OF LYMPH CHANNELS Left 10/18/2018 INCISION & DRAINAGE LYMPHOCELE (WRVU 6.81) performed by Andre Gimenez MD at [facility] OR ??? PRO IV INJ TO TEST BLOOD FLOW IN FLAP/GRAFT Left 10/18/2018 IV INJECTION, AGENT TO TEST VASC FLOW IN FLAP OR GRAFT, ENT (WRVU 1.95) performed by Andre Gimenez MD at [facility] OR ??? PRO MASTECTOMY, SIMPLE, COMPLETE Bilateral 04/26/2017 MASTECTOMY, SIMPLE, COMPLETE-SUSAN (WRVU 15.85) performed by Jolie Menendez MD at [facility] OR ??? PRO PARTIAL REMOVAL OF RIB Bilateral 04/26/2017 EXCISION OF RIB, PARTIAL (WRVU 7.26) performed by Andre Gimenez MD at [facility] OR ??? PRO REMOVE ARMPITS LYMPH NODES COMPLT Left 04/26/2017 LYMPHADENECTOMY, AXILLARY, COMPLETE (WRVU 13.87) performed by Jolie Menendez MD at [facility] OR ??? PRO REPLACE TISSUE MOTOR VEHICLE COMPLIANCE ANALYST Bilateral 12/12/2017 TISSUE MOTOR VEHICLE COMPLIANCE ANALYST REPLACEMENT, WITH PERMANENT PROSTHESIS, SUSAN (WRVU 8.01) performed by Andre Gimenez MD at [facility] OR ??? PRO REVISE BREAST RECONSTRUCTION Left 06/22/2017 REVISION OF RECONSTRUCTED BREAST (WRVU 10.41) performed by Andre Gimenez MD at [facility] OR ??? PRO REVISE BREAST RECONSTRUCTION Bilateral 12/12/2017 REVISION OFRECONSTRUCTED BREAST, SUSAN (WRVU 10.41) performed by Andre Gimenez MD at [facility] OR ??? PRO THYMECTOMY, TRANSCERVICAL N/A 11/02/2015 THYMECTOMY, TRANSCERVICAL APPROACH performed by Valentina Lucas MD at [facility] OR ??? SHOULDER SURGERY Left ??? UMBILICAL HERNIA REPAIR Your Medications Accurate as of December 02, 2018 1:20 PM. If you have any questions, ask your nurse or doctor. Continued medications, unchanged Dose Details acetaminophen 325 mg Tab Commonly known as: TYLENOL Take 2 tablets by mouth every 4 hours as needed for Pain. 650 mg Refills: 0 amLODIPine 10 mg Tab Commonly known as: NORVASC Take 10 mg by mouth daily. 10 mg Refills: 0 atorvastatin 20 mg Tab Commonly known as: LIPITOR Take 1 tablet by mouth daily. 1 tablet Refills: 0 clobetasol 0.05 % Crea Commonly known as: TEMOVATE Apply to affected areas on knees, elbows and hands twice daily for two week cycles as needed. Quantity: 60 g Refills: 3 ferrous gluconate 324 mg (37.5 mg iron) Tab Take 324 mg by mouth daily. 324 mg Refills: 0 FLUoxetine 40 mg Cap Commonly known as: PROzac daily. Refills: 0 gabapentin 300 mg Cap Commonly known as: NEURONTIN Take 1 capsule by mouth 3 times daily. 300 mg Quantity: 90 capsule Refills: 3 losartan 100 mg Tab Commonly known as: COZAAR take 1 tablet by mouth once daily Refills: 0 potassium chloride 20 mEq Tbsr take 3 tablets by mouth daily Refills: 0 spironolactone 25 mg Tab Commonly known as: ALDACTONE Take 1 tablet by mouth daily. 25 mg Quantity: 90 tablet Refills: 3 tamoxifen 20 mg Tab Commonly known as: NOLVADEX Take 1 tablet by mouth daily. 20 mg Quantity: 90 tablet Refills: 3 triamcinolone 0.1 % Oint Commonly known as: KENALOG Apply 1 each topically 2 times daily. To affected areas on trunk 1 each Quantity: 454 g Refills: 1 ustekinumab 45 mg/0.5 mL Syrg Commonly known as: STELARA Inject 45mg subcutaneously every 12 weeks, starting 4 weeks after initial dose. Quantity: 0.5 mL Refills: 5 Vitamin D-3 5,000 unit Tab Take by mouth. Generic drug: cholecalciferol (Vitamin D3) Refills: 0 Physical Exam Constitutional: She is oriented to person, place, and time. She appears well- developed and well-nourished. No distress. BP 139/81 (Patient Position: Sitting) Pulse 95 Temp 37 ??C (98.6 ??F) (Oral) Resp 16 Wt 80.9 kg (178 lb 6.4 oz) Comment: with shoes SpO2 100% BMI 33.68 kg/m?? HENT: Head: Normocephalic and atraumatic. Eyes: Conjunctivae and EOM are normal. Right eye exhibits no discharge. Left eye exhibits no discharge. No scleral icterus. Neck: Normal range of motion. Neck supple. No tracheal deviation present. No thyromegaly present. Pulmonary/Chest: Effort normal. No stridor. No respiratory distress. S/p B mastectomies w/B recon w/free nipple grafts. Minimal hyperpigmentation L reconstructed breast. Resolution of prior psoriasison reconstructed area. No visible/palpable ca on chest. Abdominal: Soft. She exhibits no distension and no mass. There is no tenderness. There is no rebound and no guarding. Musculoskeletal: Normal range of motion. She exhibits edema (L arm & hand in compression glove & sleeve). L upper ext 1.3 X R upper ext. B nonpitting edema lower exts B w/perhaps subtle brawny induration. Lymphadenopathy: Head (right side): No submental, no [...] is normal. Judgment and thought contentnormal. A: Healing well post xrt. GAVINO. P: Rtc 6 mos. documented in this encounter Plan of Treatment Upcoming Encounters Date Type Department Care Team (Late st Contact Info) Description 01/22/2024 10:30 AM EST Appointment Mammography[place] [phone] Ladi Mendosa MD [facility] [place]ATOLOGY/[place] [address] 01/30/2024 11:30 AM EST Office Visit Dermatology at [address] [place] [address] Nilda Luis MD [facility] [address] [place] [address] 02/15/2024 9:30 AM [place] [phone] [place] [address] documented as of this encounter Visit Diagnoses Diagnosis 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
--- OUTSIDE RECORDS SUMMARY | 2023-09-07 11:27 | XMS_ITS | Encounter Summary ---
Author Organization [facility] Address [facility] [place] [address] Care Team Providers Care Digital Printer Name Role Phone Trinh Coates MD Primary Care Provider [phone] Reason for Visit * Reason Comments Establish Care hard lesion on R s ludmila, red itchy rash, x 1 year, not visible today. Vulvodynia painful intercourse * Consultation (Routine) - Closed Specialty Diagnoses / Procedures Referred By Contac t Referred To Contact Obstetrics and Gynecology Diagnoses VULVA LESION Trinh Coates MD [facility] [address] [place] [address] [facility] [employer] [address] [place] [address] Referral ID Status Reason Start Date Expiration Date V isits Requested Visits Authorized [id number] Closed Consult, Test & Treat Connection Center 07/01/2018 07/01/2019 1 1 Encounter Details Date Type Department Care Team (Late st Contact Info) Description 10/16/2018 11:00 AM EDT Office Visit Obstetrics [place] [address] Vaishali Allison MD [facility] OBSTET[facility] [place] [address] Vulvar itching; Vulvar rash; Psoriasis Social History Tobacco Use Types Packs/Day [...] Sign Reading Time Taken Comments Blood Pressure 132/78 10/16/2018 10:55 AM EDT Pulse 84 10/16/2018 10:55 AM EDT Temperature 36.9 ??C (98.4 ??F) 10/16/2018 10:55 AM E DT Respiratory Rate - - Oxygen Saturation 98% 10/16/2018 10:55 AM EDT Inhaled Oxygen Concentration - - Weight 75.5 kg (166 lb 6.4 oz) 10/16/2018 10:55 AM EDT Height - - Body Mass Index 31.42 05/29/2018 2:54 PM EDT documented in this encounter Progress Notes * Vaishali Allison MD - 10/16/2018 11:00 AM EDT 10/16/2018 Ms. Sandoval is a 53 y.o. P2 seen at the request of Dr. Trinh Coates for vulvar rash. She has had symptoms for over a year. Currently not really symptomatic (initially says it is 'subtle' right now) Gets an intermittent itchy red rash over the vulva at least 3X/year. It starts on the L side and then spreads all over. Her last bad episode was in July; she last had treatment for yeast ? around this time with 2 fluconazole pills. She had an old prescription for triamcinolone 0.5% cream which she has used in the past for psoriasis which she uses when it gets bad. She denies any vulvar skin problems when she was younger. Long history of psoriasis, mom had it also. She was started on stelara last month through the derm clinic here because her back scars were getting psoriatic. No side effects so far. PMH: Hypertension, hyperlipidemia, depression, neuropathy, psoriasis, L invasive ductal carcinoma of breast, s/p surgery, RT and now on tamoxifen. PSH: parathyoidectomy 2016, double mastectomy 2018, hernia repair in distant past, shoulder surgery ROS: + lymphedema L arm, having surgery by Dr. Gimenez to try and help with symptoms. 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 ??? ustekinumab (STELARA) 45 mg/0.5 mL Syringe ??? triamcinolone (KENALOG) 0.1 % Ointment ??? spironolactone (ALDACTONE) 25 mg Tablet ??? amLODIPine (NORVASC) 10 mg Tablet ??? tamoxifen (NOLVADEX) 20 mg Tablet ??? gabapentin (NEURONTIN) 300 mg Capsule ??? losartan (COZAAR) 100 mg Tablet ??? potassium chloride 20 mEq Tablet Sustained Release ??? cholecalciferol, Vitamin D3, (VITAMIN D-3) 5,000 unit Tablet ??? atorvastatin (LIPITOR) 20 mg Tablet ??? acetaminophen (TYLENOL) 325 mg Tablet ??? ferrous gluconate 324 mg (37.5 mg iron) Tablet ??? clobetasol (TEMOVATE) 0.05 % Cream ??? fluoxetine (PROZAC) 40 mg capsule ??? DILTiazem (CARDIZEM CD) 240 mg Capsule, Sust. Release 24 hr Patient Active Problem List Diagnosis Date Noted ??? History of breast cancer 12/12/2017 ??? Seroma of breast 09/13/2017 ??? Bacterial conjunctivitis 09/07/2017 ??? Hypokalemia 07/20/2017 ??? Surgery follow-up 05/10/2017 ??? Abdominal wound dehiscence 05/10/2017 ??? S/P breast reconstruction, bilateral 04/27/2017 ??? Malignant neoplasm of upper-outer quadrant of left breast in female, estrogen receptor lbshlwau10/10/2018 ??? Hyperparathyroidism 11/02/2015 ??? Obstructive sleep apnea (adult) (pediatric) 11/12/2014 ??? OA (osteoarthritis) 11/12/2014 ??? Overweight(278.02) 11/12/2014 ??? Hypertension 03/15/2013 ??? Depression 03/15/2013 BP 132/78 (BP Location (NBP): Right arm, Patient Position: Sitting, BP Cuff Sizes: Large Adult (32-43 cm)) Pulse 84 Temp 36.9 ??C (98.4 ??F) (Oral) Wt 75.5 kg (166 lb 6.4 oz) SpO2 98% BMI 31.42 kg/m?? On exam, she looks well. The mons is normal. She has erythema of the L labia majus, with a bit of roughened feel to the skin. The R labia majus has a bit of patchy erythema but is a bit milder. Area of hypopigmentation in the middle of it - she declines previous biopsy etc in the area. She can feelsomething subq - ? small granule felt. Introitus seems mildly erythematous too, nontender to touch.The labia minora and clitoris are normal. Speculum exam: mild vaginal erythema, small amt of vaginal secretions, yeast culture done. Bimanual exam,limited due to weight and discomfort with palpation of lower abd scar, no palpable adnexal mass, nl sized uterus. Wet mount: nl squames, no hyphae or spores, nl #s WBCs Impression: ? psoriasis of the vulva Plan: check yeast culture, discussed association between tamoxifen and yogesh glabrata, discussed how to buy boric acid on amazon, she'll call her insurance in case they cover compounded products. She'll call with the next flare and I will reassess, I told her how to schedule Maybe the stelara she is on for her other psoriaisis will help her vulva as well! If yeast culture is positive, may need f/u visit repeat culture. documented in this encounter Plan of Treatment Upcoming Encounters Date Type Department Care Team (Late st Contact Info) Description 01/22/2024 10:30 AM EST Appointment Mammography/[place] [address] Ladi Mendosa MD [facility] [place]EMAT[place] [address] 01/30/2024 11:30 AM EST Office Visit Dermatology at [facility] [address] [place] [address] Nilda Luis MD [facility] [address] [place] [address] 02/15/2024 9:30 AM EST [place] [phone] [place] [address] documented as of this encounter Procedures Procedure Name Priority Date/Time Associated Diagnosis Comments HC FUNGUS CULTURE, MISC SOURCE Routine 10/16/2018 4:18 PM EDT Vulvar itching Vulvar rash documented in this encounter Results * Yeast culture Vaginal (10/16/2018 4:18 PM EDT) Yeast Culture No Yeast isolated [facility] Vaginal 10/16/2018 4:18 PM EDT 10/16/2018 4:18 PM EDT Narrative Resulting Agency Comment Spec In Lab Vaishali Allison MD MICROBIOLOGY - [facility] ORDERABLES [facility] [place] [address] documented in this encounter Visit Diagnoses Diagnosis Vulvar itching Pruritus of genital organs Vulvar rash Rash and other nonspecific skin eruption Psoriasis Other psoriasis documented in this encounter Care Teams Digital Printer Relationship Specialty Start Date End Date Trinh Coates MD [address] [address] [place] [address] PCP - General 01/11/10 documented as of this encounter
--- OUTSIDE RECORDS SUMMARY | 2023-09-07 11:27 | XMS_ITS | Encounter Summary ---
Author Organization [facility] Address [facility] [place] [address] Care Team Providers Care Child Nutrition Director Name Role Phone Trinh Coates MD Primary Care Provider [phone] Reason for Referral * Diagnostic Test (Routine) - Closed Specialty Diagnoses / Procedures Referred By Diamante marin Referred To Contact Radiology Diagnoses Malignant neoplasm of upper-outer quadrant of left breast in female, estrogen receptor positive Procedures DXA Central Spine, Hip, and/or Whole Body (Generic) Josias Barnett MD [facility] HEMATOLOGY/[place] [address] [place] [address] Referral ID Status Reason Start Date Expiration Date V isits Requested Visits Authorized [id number] Closed Specialty Service Requested 1 1 Reason for Visit * Reason Comments Follow-up Encounter Details Date Type Department Care Team (Late st Contact Info) Description 12/06/2018 10:30 AM EDT Office Visit Hematology and Oncology at [facility] [place] [address] Josias Barnett MD [facility] HEMATOLOGY/[place] [address] Malignant neoplasm of upper-outer quadrant [...] Sign Reading Time Taken Comments Blood Pressure 129/77 12/06/2018 10:18 AM EDT Pulse 81 12/06/2018 10:18 AM EDT Temperature 36.6 ??C (97.9 ??F) 12/06/2018 10:18 AM E DT Respiratory Rate 16 12/06/2018 10:18 AM EDT Oxygen Saturation 100% 12/06/2018 10:18 AM EDT Inhaled Oxygen Concentration - - Weight 79.4 kg (175 lb) 12/06/2018 10:18 AM EDT with shoes Height 157.4 cm (5' 1.97) 12/06/2018 10:18 AM E DT with shoes Body Mass Index 32.04 12/06/2018 10:18 AM EDT documented in this encounter Progress Notes * Josias Barnett MD - 12/06/2018 10:30 AM EDT Breast cancer Follow up visit HPI: Diagnosis of Invasive ductal carcinoma, left [...] the end of March 2018 started tamoxifen. PMH: Past Medical History: Diagnosis Date ??? Fibrocystic breast determined by biopsy ??? Hyperlipidemia ??? Hypertension ??? Impaired fasting glucose ??? Malignant neoplasm of upper-outer quadrant of left breast in female, estrogen receptor positive03/31/2017 ??? Obstructive sleep apnea on CPAP ??? Proteinuria No h/o thromboembolic events LMP was just prior to diagnosis Family Hx: There is family h/o breast cancer, as follows: Mother - in her 60's (?DCIS). Now A&W age 76. Elsa - at age 39; developed a contralateral BrCa at age 50. Marky - at age 46. Alive, no testing Patient has a daughter and sister. There is also colon ca on her mother's side. Oct 2017 Genetic testing: [employer]'s Common Hereditary Cancers Panel showed no mutation was detected. This means that Wendy does not carry a mutation in the genes detectable by this test. The following genes were evaluated for sequence changes and exonic deletions/duplications: APC, AMAURY, AXIN2, BARD1, BMPR1A, BRCA1, BRCA2, BRIP1, CDH1, CDKN2A (p14ARF), CDKN2A (j50XSL3x), CHEK2, CTNNA1, DICER1, EPCAM (EPCAM: Deletion/duplication testing only ([id number]), GREM1 (GREM1: Promoter region deletion/duplication testing only.), KIT, MEN1, MLH1, MSH2, MSH3, MSH6, MUTYH, NBN, NF1, PALB2, PDGFRA, PMS2, POLD1, POLE, PTEN, RAD50, RAD51C, RAD51D, SDHB, SDHC, SDHD, SMAD4, SMARCA4, STK11, TP53, TSC1, TSC 2, VHL. The following genes were evaluated for sequence changes only: HOXB13 (c.251G>A, p.Mfg53Brf variant only), NTHL1 (NTHL1: Deletion/duplication analysis is not offered for this gene ([id number]), and SDHA. A variant of uncertain significance in the AMAURY gene, specifically c.5727G>A (p.Yxz6005Lpx), was detected. Interval Hx/ROS: Persistent neuropathy of the hands and feet - which she noticed after her 2nd week of taxol. As before, occasionally affects her walking and feels she sometimes drops items. No hot flashes. Some relief with gabapentin (taking 300mg bid now). On tamoxifen experiencing increased irritability and memory issues. Leg cramps at nite. Denies headaches, double vision, cough, SOB, bleeding, change in bowel or bladder function. ROS otherwise neg. Exam Most Recent Vitals: 12/06/18 1018 BP: 129/77 Pulse: 81 Resp: 16 Temp: 36.6 ??C (97.9 ??F) SpO2: 100% Gen: WD/WN F, A&C in NAD Skin: warm and dry, no suspect rashes HEENT: Conjunctiva clear, sclera anicteric, PERRL, EOMI, MMM, OP clear Neck: Supple Lymph: no cervical, supraclavicular, or axillary adenopathy Chest: CTA Bilat Breast: s/p bilat mastectomies, no nodularity Cardiac: RRR, no M/R/G Abdomen: Soft, ND/NT, no appreciable HSM Extremities: WWP w/out cyanosis. L. Arm > R. Arm lymphedema - arm wrapped w/ significant ritika-bandage Neuro: grossly nonfocal Labs: Ref. Range 12/06/2018 Estradiol Latest Units: pg/mL <5 FSH Latest Units: mlU/ML 34.3 Assessment and Plan: Mrs. Sandoval is a 53 yo woman diagnosed in Mar 2017 with a high-grade, node- positive left breast cancer ER+/AK+/HER2-. She is s/p bilateral mastectomy, completed adjuvant chemo in October 2017. Given her LMP was right before chemo initiation, recommended adjuvant Tamoxifen, which she started March 2017 after radiation completion. For her ongoing neuropathy we discussed increasing the gabapentin dose, initially to 600mg at nite,keeping daytime dose at 300. Given side effects from tamoxifen, and post-menopausal status confirmed with FSH/E2, will switch toanastrazole. Will get DEXA in mid Jan when she's here for another appointment. documented in this encounter Plan of Treatment Upcoming Encounters Date Type Department Care Team (Late st Contact Info) Description 01/22/2024 10:30 AM EST Appointment Mammography/[place] [phone] Ladi Mendosa MD [facility] HEMATOLOGY/[place] [address] 01/30/2024 11:30 AM EST Office Visit Dermatology at [facility] [address] [place] [address] Nilda Luis MD [facility] [address] [place] [address] 02/15/2024 9:30 AM EST [place]ment [place] [address] [place] [address] documented as of this encounter Results * DXA Central Spine, Hip, and/or Whole Body (Generic) (01/29/2019 9:37 AM EST) Anatomical Region Laterality Modality C-spine, Hip N/A Other Impressions 02/04/2019 4:57 PM EST * ??Normal by WHO diagnostic criteria. Estimating Fracture Risk: ? The relationship between bone mineral density (BMD) [...] independent, risk factors in addition to BMD. ? The World Health Organization (WHO) has developed [...] website which you are encouraged to review. ? DXA data sheets with BMD measurements and plots are available in EReelBig under the imaging tab. Paper copies will be sent to providers without Sembraire access. If you have received this report without the data sheet and do not have access to DoTheGlobe, please contact Radiology [facility] Supervisor at [phone] Sunday thru Sunday 8am-4pm. Thank you for letting us participate in the care of this patient. For questions regarding this report, please contact the number below. ? Narrative 02/04/2019 4:57 PM EST EXAMINATION: DXA CENTRAL SPINE, HIP, AND/OR WHOLE BODY (GENERIC) CLINICAL HISTORY: Starting aromatase inhibitor for BrCa TECHNIQUE: Scans were acquired at the lumbar spine and left hip .. Additional measurements were acquired at the right forearm. Densitometer: HoloReviewPro Discovery A COMPARISON: None FINDINGS: Lowest T-score at a diagnostic region of interest: T-score: -0.7, BUSHRA: Femoral neck and total hip, WHO diagnosis: Normal. Procedure Note Alonso Coles MD - 02/04/2019 EXAMINATION: DXA CENTRAL SPINE, HIP, AND/OR WHOLE BODY (GENERIC) CLINICAL HISTORY: Starting aromatase inhibitor for BrCa TECHNIQUE: Scans were acquired at the lumbar spine and left hip ..Additional measurements were acquired at the right forearm. Densitometer: HoloReviewPro Discovery A COMPARISON: None FINDINGS: Lowest T-score at a diagnostic region of interest: T-score: -0.7, BUSHRA: Femoral neck and total hip, WHO diagnosis: Normal. IMPRESSION * Normal by WHO diagnostic criteria. Estimating Fracture Risk: ? The relationship between bone mineral density (BMD) [...] partially independent,risk factors in addition to BMD. ? The World Health Organization (WHO) has developed [...] website which you are encouraged to review. ? DXA data sheets with BMD measurements and plots are available in EReelBigunder the imaging tab. Paper copies will be sent to providers without E- access.If you have received this report without the data sheet and do not haveaccess to E-, please contact Radiology [facility] Supervisor at [phone] Sunday thruFrid 8am-4pm. Thank you for letting us participate in the care of this patient. Forquestions regarding this report, please contact the number below. Josias Barnett MD IMG DEXA ORDERABLES * Follicle Stimulating Hormone (12/06/2018 11:12 AM EDT) FSH 34.3 mlU/ML [facility] Comment: Reference Ranges: Females: Follicular: ? 3.5-12.5 mIU/mL Ovulation: ?4.7-21.5 mIU/mL Luteal: ? 1.7-7.7 mIU/mL Postmenopausal: 25.8-134.8 mIU/mL Blood specimen (specimen) 12/06/2018 11:12 AM EDT 12/06/2018 11:35 AM EDT Narrative Resulting Agency Comment Spec In Lab Josias Barnett MD CHEMISTRY ORDERABLES [facility] [place] [address] * Estradiol (12/06/2018 11:12 AM EDT) Estradiol <5 pg/mL [facility] Comment: Reference ranges: Males: Adult: ? 11 to 43 pg/mL Females: Non- females: ?Follicular: ??12-233 pg/mL ?Ovulation: ?? 41-398 pg/mL ?Luteal: ?22-341 pg/mL ?Postmenopausal: ?? 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
--- OUTSIDE RECORDS SUMMARY | 2023-09-07 11:27 | XMS_ITS | Encounter Summary ---
Author Organization [facility] Address [facility] [place] [address] Care Team Providers Care Human Resource Professional Name Role Phone Trinh Coates MD Primary Care Provider [phone] Reason for Visit * Reason Comments Medication Refill Encounter Details Date Type Department Care Team (Late st Contact Info) Description 08/20/[address] [facility] [address] [place] [address] Tino Mann MD [facility] [place] [address] Psoriasis Social History Tobacco Use Types Packs/Day [...] encounter Miscellaneous Notes * Telephone Encounter - Tino Mann MD - 08/20/2019 1:45 PM EDT Pt needs to schedule follow up to receive further medications documented in this encounter Plan of Treatment Upcoming Encounters Date Type Department Care Team (Late st Contact Info) Description 01/22/2024 10:30 AM EST Appointment Mammography/[place] [address] Ladi Mendosa MD [facility] HEMATOLOGY/[place] [address] 01/30/2024 11:30 AM EST Office Visit Dermatology at [facility] [address] [place] [phone] Nilda uLis MD [facility] [address] [place] [address] 02/15/2024 9:30 AM EST Appointment Radiology at [place] [phone] [place] [address] documented as of this encounter Visit Diagnoses Diagnosis Psoriasis Other psoriasis documented in this encounter Care Teams Human Resource Professional Relationship Specialty Start Date End Date Trinh Coates MD [facility] [address] [place] [address] PCP - General 01/11/10 documented as of this encounter
--- OUTSIDE RECORDS SUMMARY | 2023-09-07 11:27 | XMS_ITS | Encounter Summary ---
Author Organization [facility] Address [facility]ita [facility] [place] [address] Care Team Providers Care Respiratory Support Technician Name Role Phone Trinh Coates MD Primary Care Provider [phone] Encounter Details Date Type Department Care Team (Late st Contact Info) Description 10/16/2018 9:00 AM EDT Office Visit [place] [address] Jolie Menendez MD [facility] [place] [address] History of breast cancer Social History Tobacco Use Types Packs/Day Years [...] Pressure - - Pulse - - Temperature 36.6 ??C (97.9 ??F) 10/16/2018 9:07 AM ED T Respiratory Rate - - Oxygen Saturation - - Inhaled Oxygen Concentration - - Weight - - Height - - Body Mass Index - - documented in this encounter Progress Notes * Jolie Menendez MD - 10/16/2018 9:00 AM EDT Breast cancer Follow up visit HPI: Diagnosis of Invasive ductal carcinoma, left breast, in March 2017. A. 2.0 cm cancer, high-grade, grade 3. ER/LA +++, HER-2/pat negative, 4/18 nodes (1/18 additional nodes with ITC). LVI negative. B. S/P left MRM and D IEP recon. 1. Abdominal wound dehiscence and possible infection. C. S/P right prophylactic MRM and deep reconstruction, pathology benign. 07/20/17: Started adjuvant chemotherapy with dose-dense AC. 10/04/17: Transitioned to dose-dense Taxol adjuvant chemo. Completed 11/15/17. Completed radiation therapy at the end of Feb, 2018. March 2018 started tamoxifen. Wendy has had a long 19 months since surgery. She had a lat flap/implant to replace lost SALVADOR. She has some chemobrain. She is struggling with lymphedema and planning corrective surgery later this week. She has some fatigue with some good days. She has been struggling with low potassium (requiring hospitalizations) and persistent hypertension with DBPs still running in 100s. PMH: Past Medical History: Diagnosis Date ??? Fibrocystic breast determined by biopsy ??? Hyperlipidemia ??? Hypertension ??? Impaired fasting glucose ??? Malignant neoplasm of upper-outer quadrant of left breast in female, estrogen receptor positive03/31/2017 ??? Obstructive sleep apnea on CPAP ??? Proteinuria No h/o thromboembolic events LMP at diagnosis Family Hx: There is family h/o breast cancer, as follows: Mother - in her 60's (?DCIS). Now A&W age 76. MAunt - at age 39; developed a contralateral BrCa at age 50. MCousin - at age 46. Alive, no testing Patient has a daughter and sister. There is also colon ca on her mother's side. Oct 2017 Genetic testing: [employer]'s Common Hereditary Cancers Panel showed no mutation was detected. Exam There were no vitals filed for this visit. Gen: WD/WN F, A&C in NAD Skin: warm and dry, no suspect rashes HEENT: Conjunctiva clear, sclera anicteric, PERRL, EOMI, MMM, OP clear Neck: Supple Lymph: no cervical, supraclavicular, or axillary adenopathy. Left axilla consistent with prior dissection. Sleeve place. Bilateral chest wall with viable skin, no nodules or masses. There is asymmetry with contracture and edema of the left . No abdominal tenderness. Imaging: no new imaging Assessment and Plan: Wendy is a 53 yo woman with a history of PMH of high-grade, node-positive left breast cancer ER+/LA+/HER2- (dx 03/2017, s/p bilateral mastectomy) who completed adjuvant chemo in October 2017 and radiation in February,. She is struggling with side effects of treatment but has no evidence of recurrence. I will see Wendy back as needed if issues arise. We discussed the risk of chest wall recurrence and signs for which she should seek medical attention. documented in this encounter Plan of Treatment Upcoming Encounters Date Type Department Care Team (Late st Contact Info) Description 01/22/2024 10:30 AM EST Appointment Mammography/[place] [phone] [facility] DR HEMATOLOGY/[place] [address] 01/30/2024 11:30 AM EST Office Visit Dermatology at [address] [phone] Nilda Luis MD [facility] [address] [place] [address] 02/15/2024 9:30 AM EST [place] [phone] [place] [address] documented as of this encounter Visit Diagnoses Diagnosis History of breast cancer Personal history of malignant neoplasm of breast documented in this encounter Care Teams Respiratory Support Technician Relationship Specialty Start Date End Date Trinh Coates MD [facility] [place] [address] [address] PCP - General 01/11/10 documented as of this encounter
--- OUTSIDE RECORDS SUMMARY | 2023-09-07 11:27 | XMS_ITS | Encounter Summary ---
Author Organization [facility] Address [facility] [place] [address] Care Team Providers Care Hob Machine Operator Name Role Phone Trinh Coates MD Primary Care Provider [phone] Reason for Referral * Diagnostic Test (Routine) - Closed Specialty Diagnoses / Procedures Referred By Contac t Referred To Contact Radiology Diagnoses Malignant neoplasm of upper-outer quadrant of left breast in female, estrogen receptor positive Procedures DXA Central Spine, Hip, and/or Whole Body (Generic) Josias Barnett MD [facility] HEMATOLOGY/[place] [address] [facility] [address] [place] [address] [place] [address] Referral ID Status Reason Start Date Expiration Date V isits Requested Visits Authorized [id number] Closed Specialty Service Requested 1 1 Reason for Visit * Diagnostic Test (Routine) - Closed Specialty Diagnoses / Procedures Referred By Contac t Referred To Contact Radiology Diagnoses Malignant neoplasm of upper-outer quadrant of left breast in female, estrogen receptor positive Procedures DXA Central Spine, Hip, and/or Whole Body (Generic) Josias Barnett MD [facility] HEMATOLOGY/[place] [address] [facility] Rad Xray [address] [place] [address] [place] [address] Referral ID Status Reason Start Date Expiration Date V isits Requested Visits Authorized [id number] Closed Specialty Service Requested 1 1 Encounter Details Date Type Department Care Team (Latest Contact Info) Description 01/29/2019 9:15 AM EST - 01/29/2019 11:59 PM EST Hospital Encounter XRay at [address] [place] [address] Josias Barnett MD [facility] HEMATOLOGY/[place] [address] Malignant neoplasm of upper-outer quadrant of left [...] q 6 hrs daily as needed 11/15/2015 dilTIAZem (CARDIZEM CD) 240 mg Capsule, Sust. Release 24 hr Take 240 mg by mouth daily. spironolactone (ALDACTONE) 25 mg Tablet Take 1 tablet by mouth daily. 90 tablet 3 07/23/2018 potassium chloride 20 mEq Tablet Sustained Release 1 tablet daily. 0 09/17/2017 07/12/2020 atorvastatin (LIPITOR) 20 mg Tablet Take 1 tablet by mouth daily. 0 03/02/2017 07/12/2020 clobetasol (TEMOVATE) 0.05 % CreamIndications:Psoria sis Apply to affected areas on knees, elbows and hands twice daily for two week cycles as needed. 60 g 3 04/16/2014 10/20/2019 ferrous sulfate (FeroSul) 325 mg (65 mg iron) tablet 1 tablet. 01/26/2014 05/15/2023 omeprazole (PriLOSEC OTC) [address] tablet 1 CAP daily 03/27/2014 024 ibuprofen (ADVIL;MOTRIN) 200 mg Tablet Take 200 mg by mouth every 6 hours as needed for Pain. 07/25/2022 TURMERIC ORAL Take by mouth daily. 2019 clobetasol (TEMOVATE) 0.05 % SolutionIndications:Fol liculitis,Psoriasis Apply topically to scalp once daily as needed. 25 mL 5 01/07/2019 10/20/2019 anastrozole (ARIMIDEX) 1 mg TabletIndications:Loysamara bañuelos neoplasm of upper-outer quadrant of left breast in female, estrogen receptor positive Take 1 tablet by mouth daily. Start week of Dec 16, 2018 (having stopped tamoxifen for 7-10 days). 90 tablet 3 12/06/2018 09/19/2019 ustekinumab (STELARA) 45 mg/0.5 mL SyringeIndications:Psor iasis Inject 45mg subcutaneously every 12 weeks, starting 4 weeks after initial dose. 0.5 mL 5 09/04/2018 08/20/2019 triamcinolone (KENALOG) 0.1 % OintmentIndications:Pso riasis Apply 1 each topically 2 times daily. To affected areas on trunk 454 g 1 07/24/2018 11/15/2021 gabapentin (NEURONTIN) 300 mg CapsuleIndications:Elaineponcho rojas neoplasm of upper-outer quadrant of left [...] 01/22/2024 10:30 AM EST Appointment Mammography/[place] [address] Ladi Mendosa MD [facility] DR HEMATOLOGY/[place] [address] 01/30/2024 11:30 AM EST Office Visit Dermatology at [facility] [address] [place] [address] Nilda Luis MD [facility] DR [place] [address] 02/15/2024 9:30 AM EST [place] [phone] [place] [address] documented as of this encounter Procedures Procedure Name Priority Date/Time Associated Diagnosis Comments DXA CENTRAL SPINE, HIP, AND/OR WHOLE BODY (GENERIC) Routine 01/29/2019 9:37 AM EST Malignant neoplasm of upper-outer quadrant of left [...] BMD measurements and plots are available in [employer] under the imaging tab. Paper copies will be sent to providers without [employer] access. If you have received this report without the data sheet and do not have access to [employer], please contact Radiology [employer] Manager at [phone] Sunday thru Sunday 8am-4pm. Thank you for letting us participate in the care of this patient. For questions regarding this report, please contact the number below. ? Electronically signed by: Alonso Coles, [facility] ([phone]), at 02/04/2019 4:57 PM Narrative 02/04/2019 4:57 PM EST EXAMINATION: DXA CENTRAL SPINE, HIP, AND/OR WHOLE BODY (GENERIC) CLINICAL HISTORY: Starting aromatase inhibitor for BrCa TECHNIQUE: Scans were acquired at the lumbar spine and left hip .. Additional measurements were acquired at the right forearm. Densitometer: Hologic Discovery A COMPARISON: None FINDINGS: Lowest T-score [...] were acquired at the right forearm. Densitometer: Hologic Discovery A COMPARISON: None FINDINGS: Lowest T-score [...] BMD measurements and plots are available in [employer] the imaging tab. Paper copies will be sent to providers without [employer] access.If you have received this report without the data sheet and do not haveaccess to [employer], please contact Radiology [employer] Manager at [phone] Sunday thrrid 8am-4pm. Thank you for letting us participate in the care of this patient. Forquestions regarding this report, please contact the number below. Electronically signed by: Alonso Coles [facility]([phone]), at 02/04/2019 4:57 PM Josias Barnett MD IMG DEXA ORDERABLES documented in this encounter Visit Diagnoses Diagnosis Malignant neoplasm of upper-outer quadrant of left breast in female, estrogen receptor positive documented in this encounter Care Teams Hob Machine Operator Relationship Specialty Start Date End Date Trinh Coates MD [facility] [address] [place] [address] PCP - General 01/11/10 documented as of this encounter
--- OUTSIDE RECORDS SUMMARY | 2023-09-07 11:27 | XMS_ITS | Encounter Summary ---
Author Organization [facility] Address [facility] [place] [address] Care Team Providers Care Near Eastern Archaeology Lecturer Name Role Phone Trinh Coates MD Primary Care Provider [phone] Encounter Details Date Type Department Care Team (Late st Contact Info) Description 11/22/2018 Telephone Hematology [place] [address] Mana Hardin RN Social History Tobacco Use Types Packs/Day [...] Miscellaneous Notes * Telephone Encounter - Mana Rosenberg RN - 11/22/2018 9:22 AM EDT Scripts for compression glove and sleeve refaxed to [facility] at [phone]. documented in this encounter Plan of Treatment Upcoming Encounters Date Type Department Care Team (Late st Contact Info) Description 01/22/2024 10:30 AM EST Appointment Mammography/[place] [address] Ladi Mendosa MD [facility] HEMATOLOGY/[place] [address] 01/30/2024 11:30 AM EST Office Visit Dermatology at [facility] [address] [place] [address] Nilda Luis MD [facility] [address] [place] [address] 02/15/2024 9:30 AM EST Appoint[place] [phone] [place] [address] documented as of this encounter Visit Diagnoses Not on filedocumented in this encounter Care Teams Near Eastern Archaeology Lecturer Relationship Specialty Start Date End Date Trinh Coates MD [facility] [address] [place] [address] PCP - General 01/11/10 documented as of this encounter
--- OUTSIDE RECORDS SUMMARY | 2023-09-07 11:27 | XMS_ITS | Encounter Summary ---
Author Organization [facility] Address [facility] [place] [address] Care Team Providers Care Supervisor Cold Rolling Name Role Phone Trinh Coates MD Primary Care Provider [phone] Encounter Details Date Type Department Care Team (Latest Contact Info) Description 06/16/2019 4:15 PM EDT TH Visit (TeleHealth) Hematology [place] [address] Josias Barnett MD [facility] HEMATOLOGY/[place] [address] Malignant neoplasm of upper-outer quadrant of left [...] Progress Notes * Josias Barnett MD - 06/16/2019 4:15 PM EDT Breast cancer Follow up Phone call HPI: Diagnosis of Invasive ductal carcinoma, left breast, in March 2017. 2.0 cm cancer, high-grade. ER/IA +++, HER-2/pat negative, 4/18 nodes (1/18 additional [...] her mother's side. Oct 2017 Genetic testing: [employer]'s Common Hereditary Cancers Panel showed no mutation was detected. This means that Wendy does not carry a mutation in the genes detectable by this test. The following genes were evaluated for sequence changes and exonic deletions/duplications: APC, AMAURY, AXIN2, BARD1, BMPR1A, BRCA1, BRCA2, BRIP1, CDH1, CDKN2A (p14ARF), CDKN2A (q42QQB2k), CHEK2, CTNNA1, DICER1, EPCAM (EPCAM: Deletion/duplication testing only (NM_[id number]), GREM1 (GREM1: Promoter region deletion/duplication testing only.), KIT, MEN1, MLH1, MSH2, MSH3, MSH6, MUTYH, NBN, NF1, PALB2, PDGFRA, PMS2, POLD1, POLE, PTEN, RAD50, RAD51C, RAD51D, SDHB, SDHC, SDHD, SMAD4, SMARCA4, STK11, TP53, TSC1, TSC 2, VHL. The following genes were evaluated for sequence changes only: HOXB13 (c.251G>A, p.Axc39Gld variant only), NTHL1 (NTHL1: Deletion/duplication analysis is not offered for this gene (NM_002528.6), and SDHA. A variant of uncertain significance in the AMAURY gene, specifically c.5727G>A (p.Zcr2578Tns), was detected. 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 On anastrazole experienced weight gain and irritability, now back on tamoxifen. Leg cramps at nite occas. Reports no new problems with frequent headaches, double vision, cough, SOB, bleeding, change in bowel or bladder function. ROS otherwise neg. Exam No exam [phone call] Assessment and Plan: Mrs. Sandoval is a 53 yo woman diagnosed in Mar 2017 with a high-grade, node- positive left breast cancer ER+/IA+/HER2-. She is s/p bilateral mastectomy, completed adjuvant chemo in October 2017. Given her LMP was right before chemo initiation, recommended adjuvant Tamoxifen, which she started March 2017 after radiation completion. Ongoing neuropathy slightly better (gone in hands), still on gabapentin. Given side effects from tamoxifen, and post-menopausal status confirmed with FSH/E2, tried switch to anastrazole, but requested return to tamoxifen b/o side effects. documented in this encounter Plan of Treatment Upcoming Encounters Date Type Department Care Team (Late st Contact Info) Description 01/22/2024 10:30 AM EST Appointment Mammography/[place] [address] Ladi Mendosa MD [facility] HEMATOLOGY/[place] [address] 01/30/2024 11:30 AM EST Office Visit Dermatology at [place] [address] [place] [phone] Nilda Luis MD [facility] DR LID[place] [address] 02/15/2024 9:30 AM EST Appointment [place] [address] [place] [address] documented as of this encounter Visit Diagnoses Diagnosis Malignant neoplasm of upper-outer quadrant of left breast in female, estrogen receptor positive documented in this encounter Care Teams Supervisor Cold Rolling Relationship Specialty Start Date End Date Trinh Coates MD [facility] [address] [place] [address] PCP - General 01/11/10 documented as of this encounter
--- OUTSIDE RECORDS SUMMARY | 2023-09-07 11:27 | XMS_ITS | Encounter Summary ---
Author Organization Count Includes [facility] Address [facility] [place] [address] Care Team Providers Care Breaker Up Name Role Phone Trinh Coates MD Primary Care Provider [phone] Reason for Visit * Reason Comments Follow Up Surgery Lymphatic mapping le ft arm Encounter Details Date Type Department Care Team (Late st Contact Info) Description 01/07/2019 10:15 AM EST Office Visit [place] [address] Mali Lakhani MD [facility] [place] [address] Surgery follow-up Social History Tobacco Use Types Packs/Day Years [...] as of this encounter Progress Notes * Mali Lakhani MD - 01/07/2019 10:15 AM EST Plastic Surgery Follow Up Note Date of surgery: 10/18/18 Procedure(s): Lymphatic mapping, lymphevenous bypass (Ammy) Complications: None reported Date of surgery: 12/16/17 Procedure: Revision of reconstructed breasts bilaterally. Breast reconstruction with LAT DORSI flapwith permanent prosthesis bilaterally. 405 cc mentor silicone and were placed in a retro-muscular plane. It should be noted that tacking sutures were placed along the axillary aspect of the latissimus muscle to prevent migration laterally Date of surgery: 06/22/17 Procedure(s) left breast wound debridement, excision and closure. Debridement of umbilicus. Deflation of route rider volume, This leaves 450 cc in the left tissue route rider and 500 cc on the right side Date of surgery: 04/26/17 Procedure(s): Bilateral breast reconstruction with attempted SALVADOR flaps, eventual tissue route rider placement with [place] Artoura 600 cc expanders placed bilaterally and filled with 450 cc of methyleneblue impregnated saline.) Complications: right parietal and visceral pleural tear, arterial flap failure bilaterally HPI: Patient reports that she is doing well. She is trying to keep her spirits up. Her arm feels better some days and other days she does too much work and it becomes uncomfortable. She has been wearing compression wraps, which seem to help. She continues to perform self-massage and that brings some relief to her arm. Examination: Patient is alert, conversant, comfortable, ambulating Patient has had some clear improvement in the dorsum of the hand and lower forearm. Still stom swelling, but this is not pitting. The upper arm is still moderately large and at the antecubital fossa. Left hand is neurovascularly intact. Left wrist is 20 cm ,mid forearm is 30 cm, elbow is 32.5, mid upper arm is 34. Right wrist is 18.5 cm, mid forearm is 26, elbow antecubital fossa is 30, mid upper arm is 35.5. Impression: Wendy Sandoval is a 53 y.o. female who was seen today for follow- up after the above procedure. Please see the operative note for details. I assured the patient I see nothing worrisome.We did discuss lymph node transplant from her abdomen, if she wishes. I think it may make a difference in her arm, as she has achieved much improvement with the bypass. I would like her to undergo treatment for water retention prior to undergoing any further surgeries. She states she will discontinue therapy until needed, as she doesn't want to use up her approved amount. Plan: Follow up 3-6 months or if there are concerns. Undergo treatment for water retention. Continue with compression and massage. ITara, have performed the documentation for this encounter in the presence of and acting as a scribe for MALI LAKHANI MD. I performed the services which were documented by the scribe, and I agree with the accuracy of the documentation in this encounter. MALI LAKHANI MD documented in this encounter Plan of Treatment Upcoming Encounters Date Type Department Care Team (Late st Contact Info) Description 01/22/2024 10:30 AM EST Appointment Mammography/DXA at [place] [phone] Ladi Mendosa MD [facility] HEMATOLOGY/[place] [address] 01/30/2024 11:30 AM EST Office Visit Dermatology at [address] [place] [phone] Nilda Luis MD [facility] DR LIDIA [place] [address] 02/15/2024 9:30 AM EST Appointment [place] [phone] [place] [address] documented as of this encounter Visit Diagnoses Diagnosis Surgery follow-up Follow-up examination, following unspecified surgery documented in this encounter Care Teams Breaker Up Relationship Specialty Start Date End Date Trinh Coates MD [facility] [address] [place] [address] PCP - General 01/11/10 documented as of this encounter
--- OUTSIDE RECORDS SUMMARY | 2023-09-07 11:27 | XMS_ITS | Encounter Summary ---
Author Organization [place] [address] Care Team Providers Care Hospital Mortician Name Role Phone Trinh Coates MD Primary Care Provider [phone] Reason for Visit * Reason Onset Date Comments Appointment 12/25/2018 Urgent Referral Encounter Details Date Type Department Care Team (Late st Contact Info) Description 12/25/2018 Telephone [place] [phone] Aida Hale Appointment (Urgent Referral) Social History Tobacco Use Types Packs/Day Years [...] encounter Miscellaneous Notes * Telephone Encounter - Aida Hale - 12/25/2018 8:49 AM EST Caller and relationship to patient (if other than patient): Referring MD office Patients Best time to reach caller: Today please Message or Reason for Call: RMD office sent Urgent Referral two weeks ago. Patient has not heard from anyone at [facility]. They requested patient be contacted today Appt Needed and Reason: Yes CKD III Provider: TBD documented in this encounter Plan of Treatment Upcoming Encounters Date Type Department Care Team (Late st Contact Info) Description 01/22/2024 10:30 AM EST Appointment Mammography[place] [phone] Ladi Mendosa MD [facility] HEMATOLOGY/[place] [address] 01/30/2024 11:30 AM EST Office Visit Dermatology at [address] [place] [phone] Nilda Luis MD [facility] [place] [address] 02/15/2024 9:30 AM [place] [phone] [place] [address] documented as of this encounter Visit Diagnoses Not on filedocumented in this encounter Care Teams Hospital Mortician Relationship Specialty Start Date End Date Trinh Coates MD [address] [place] [address] PCP - General 01/11/10 documented as of this encounter
--- OUTSIDE RECORDS SUMMARY | 2023-09-07 11:27 | XMS_ITS | Encounter Summary ---
Author Organization [facility] Address [facility] [place] [address] Care Team Providers Care Home Service Consultant Name Role Phone Trinh Coates MD Primary Care Provider [phone] Encounter Details Date Type Department Care Team (Late st Contact Info) Description 09/11/2018 Telephone Dermatology at [facility] [address] [place] [address] Tino Mann MD [facility] [address] LID[address] [place] [address] Social History Tobacco Use Types Packs/Day Years [...] encounter Miscellaneous Notes * Telephone Encounter - Cassy Caceres - 09/11/2018 10:40 AM EDT Called and left a message for Wendy Lanier Lori requesting a call back to schedule her stelara injection. RX here * Telephone Encounter - Chuyita Henry - 09/11/2018 10:15 AM EDT Received patient's Stelara injection in clinic. documented in this encounter Plan of Treatment Upcoming Encounters Date Type Department Care Team (Late st Contact Info) Description 01/22/2024 10:30 AM EST Appointment Mammography/[place] [phone] Ladi Mendosa MD [facility] HEMATOLOGY/[place] [address] 01/30/2024 11:30 AM EST Office Visit Dermatology at [address] [place] [phone] Nilda Luis MD [facility] DR LIDIA [place] [address] 02/15/2024 9:30 AM [place] [phone] [place] [address] documented as of this encounter Visit Diagnoses Not on filedocumented in this encounter Care Teams Home Service Consultant Relationship Specialty Start Date End Date Trinh Coates MD [facility] [address] [place] [address] PCP - General 01/11/10 documented as of this encounter
--- OUTSIDE RECORDS SUMMARY | 2023-09-07 11:27 | XMS_ITS | Encounter Summary ---
Author Organization [facility] Address [facility] [place] [address] Care Team Providers Care Device Test Engineer Name Role Phone Trinh Coates MD Primary Care Provider [phone] Reason for Referral * Physical Therapy (Routine) - Closed Specialty Diagnoses / Procedures Referred By Diamante marin Referred To Contact Diagnoses Lymphedema Jolene Azevedo APRN [facility] [place] [address] Unknown None Referral ID Status Reason Start Date Expiration Date V isits Requested Visits Authorized [id number] Closed Evaluate and Treat 10/30/2018 04/28/2019 12 12 Reason for Visit * Reason Comments Follow Up Surgery s/p lymphatic mappin g, lymphevenous bypass Encounter Details Date Type Department Care Team (Late st Contact Info) Description 10/30/2018 10:20 AM EDT Office Visit [place] [address] Jolene Azevedo LECTURER OF [place] [place] [address] Lymphedema Social History Tobacco Use Types Packs/Day Years [...] as of this encounter Progress Notes * Jolene Azevedo APRN - 10/30/2018 10:20 AM EDT Plastic Surgery Follow Up Note Date of [...] and closure. Debridement of umbilicus. Deflation of sound truck operator volume, This leaves 450 cc in the left tissue sound truck operator and 500 cc on the right side Date of surgery: 04/26/17 Procedure(s): Bilateral breast reconstruction with attempted SALVADOR flaps, eventual tissue sound truck operator placement with [place] Artoura 600 cc expanders placed bilaterally and filled with 450 cc of methyleneblue impregnated saline.) Complications: right parietal and visceral pleural tear, arterial flap failure bilaterally HPI: Pt reports that she is doing well. Patient feels that she appreciates improvement in her edema. Her left hand and arm feel soft. She will need another referral for physical therapy. Examination: Patient is alert, conversant, comfortable, ambulating Left arm soft. Incisions: CDI, healing well. Prolene sutures removed today. No collection, no erythema, no evidence of cellulitis. Impression: Wedny Sandoval is a 53 y.o. female who was seen today for follow- up after the above procedure. Please see the operative note for details. She is doing well without complaints. Plan: Follow up: [address] Ammy Edwards PT for lymphedema. Referral sent today. I, Senia Mitchell, have preformed the documentation for this encounter in the presence of and acting as a scribe for JOLENE AZEVEDO APRN. I performed the services which were documented by the scribe, and I agree with the accuracy of the documentation in this encounter. JOLENE AZEVEDO APRN documented in this encounter Plan of Treatment Upcoming Encounters Date Type Department Care Team (Late st Contact Info) Description 01/22/2024 10:30 AM EST Appointment Mammography/[place] [phone] Ladi Mendosa MD [facility] HEMATOLOGY/[place] [address] 01/30/2024 11:30 AM EST Office Visit Dermatology at [address] [phone] Nilda Luis MD [facility] DR L[place] [address] 02/15/2024 9:30 AM EST Appointment [place] [phone] [place] [address] Scheduled Referrals Name Type Priority Associated Diagnoses Orde r Schedule Referral to Physical Therapy Outpatient Referral Routine Lymphedema Ordered: 10/30/2018 documented as of this encounter Visit Diagnoses Diagnosis Lymphedema Other lymphedema documented in this encounter Care Teams Device Test Engineer Relationship Specialty Start Date End Date Trinh Coates MD [facility] [address] [place] [address] PCP - General 01/11/10 documented as of this encounter
--- OUTSIDE RECORDS SUMMARY | 2023-09-07 11:27 | XMS_ITS | Encounter Summary ---
Author Organization [facility] [place] [address] Care Team Providers Care Score Caller Name Role Phone Trinh Coates MD Primary Care Provider Reason for Visit * Reason Onset Date Comments Medical Care Coordination 03/06/2019 Encounter Details Date Type Department Care Team (Late st Contact Info) Description 03/06/2019 Telephone [place] [phone] Gail Rowley, RN Medical Care Coordination Social History Tobacco Use Types Packs/Day Years [...] encounter Miscellaneous Notes * Telephone Encounter - Gail Rowley, RN - 03/06/2019 3:13 PM EST TELEPHONE NOTE Date of call: 03/06/2019 Time of call: 3:13 PM Caller:Wendy Reason for call: Lymphedema left arm, ache from elbow to shoulder/neck x 4 days Assessment: patient states present x 4 days. Increased discomfort from elbow into shoulder/neck. Describes as soreness. Motrin taking edge off. No neurovascular symptoms. left hand- warm to touch, no numbness/tingling, pink in color. No redness in extremity. No fevers. Has been shoveling snow, noother significant activities. No trauma. Wearing compression sleeve, taking motrin and massaging. Plan: Appointment scheduled for 03/12 @ 9:20am with Monserrat Azevedo. Continue wearing compression sleeve, performing massage and taking motrin. Call for any changes. Seek immediate care for any signs of neurovascular compromise, signs of infection or chest pain/difficulty breathing. Wendy verbalizes understanding of and agrees with plan documented in this encounter Plan of Treatment Upcoming Encounters Date Type Department Care Team (Late st Contact Info) Description 01/22/2024 10:30 AM EST Appointment Mammography/[place] [phone] Ladi Mendosa MD [facility] [place]ATOLOGY/[place] [address] 01/30/2024 11:30 AM EST Office Visit Dermatology at [address] [phone] Nilda Luis MD [facility] [address] 02/15/2024 9:30 AM EST App[place] [phone] [place] [address] documented as of this encounter Visit Diagnoses Not on filedocumented in this encounter Care Teams Score Caller Relationship Specialty Start Date End Date Trinh Coates MD [facility] [address] [place] [address] PCP - General 01/11/10 documented as of this encounter
--- OUTSIDE RECORDS SUMMARY | 2023-09-07 11:27 | XMS_ITS | Encounter Summary ---
Author Organization [facility] Address [facility] [place] [address] Care Team Providers Care Brick Unloader Tender Name Role Phone Trinh Coates MD Primary Care Provider [phone] Reason for Visit * Reason Comments Follow-up Encounter Details Date Type Department Care Team (Late st Contact Info) Description 09/12/2018 9:30 AM EDT Office Visit Dermatology at [address] [address] Andre Lara MD [facility] DR L[address] [place] [address] Psoriasis; High risk medication use Social History Tobacco [...] as of this encounter Progress Notes * Andre Lara - 09/12/2018 9:30 AM EDT Images from the original note were not included. DERMATOLOGY - ESTABLISHED PATIENT FOLLOW-UP Date of service: 09/12/2018 Wendy Sandoval : 1965, 53 y.o. Chief Complaint: Chief Complaint Patient presents with ??? Follow-up HPI: Wendy Sandoval is a 53 y.o. female last seen by Tino Mann MD on 07/24/2018. Ms. Sandoval returns today for her first Stelara injection, she notes that her psoriasis is doing stable , she has been using moisturizer on it, she has only been using her triamcinolone minimally dueto the greasiness. Relevant Skin History: - Okay to leave detailed message with results? yes - Skin cancer (including type): no - psoriasis ?? Family History: Melanoma: no ?? Relevant Social History: - Medications: Current Outpatient Medications Medication Sig Dispense Refill ??? ustekinumab (STELARA) 45 mg/0.5 mL Syringe Inject 45mg subcutaneously every 12 weeks, starting 4 weeks after initial dose. 0.5 mL 5 ??? triamcinolone (KENALOG) 0.1 % Ointment Apply 1 each topically 2 times daily. To affected areas on trunk 454 g 1 ??? spironolactone (ALDACTONE) 25 mg Tablet Take 1 tablet by mouth daily. (Patient not taking: Reported on 08/19/2018) 90 tablet 3 ??? amLODIPine (NORVASC) 10 mg Tablet Take 10 mg by mouth daily. ??? tamoxifen (NOLVADEX) 20 mg Tablet Take 1 tablet by mouth daily. 90 tablet 3 ??? gabapentin (NEURONTIN) 300 mg Capsule Take 1 capsule by mouth 3 times daily. 90 capsule 3 ??? losartan (COZAAR) 100 mg Tablet take 1 tablet by mouth once daily 0 ??? potassium chloride 20 mEq Tablet Sustained Release take 3 tablets by mouth daily 0 ??? cholecalciferol, Vitamin D3, (VITAMIN D-3) 5,000 unit Tablet Take by mouth. ??? atorvastatin (LIPITOR) 20 mg Tablet Take 1 tablet by mouth daily. 0 ??? acetaminophen (TYLENOL) 325 mg Tablet Take 2 tablets by mouth every 4 hours as needed for Pain. ??? DILTiazem (CARDIZEM CD) 240 mg Capsule, Sust. Release 24 hr Take 1 capsule by mouth daily. ??? ferrous gluconate 324 mg (37.5 mg [...] FLARE Review of Systems: - General: Feels well. - Skin: No other skin concerns. Examination: - Constitutional: Patient was alert, well-appearing and in no noticeable distress. - Skin: Skin examination of the legs, back, scalp - A female nurse was present and on standby during my examination. Diagnosis/Skin findings/Assessment/Plan: # Psoriasis-scattered erythematous plaques with micaceous scale overlying the Chest, Back, and scalp with - kebernization over prior flap sites of breast reconstruction - pink scaly papules on the hands, upper chest, over reconstructed breasts, drain sites, umbilicus, legs, right elbow - reviewed medication with patient including side effects, contraindications and answered all questions, patient would like to continue with the injection today - Rx: Stelara (Ustekinumab) 45mg SQ on day 1, day 28 then q 12 weeks thereafter. - Discussed risks of medication including but not limited to infection, progressive multifocal leukoencephalopathy, hypersensitivity reaction - Stelara injection 45 mg/ 0.5 ml today into the right upper arm. Subcutaneous injection. [facility]: [id number] Drug lot: [id number] Expires: 09/2020 ?? RTC: 6 months for Stelara f/u and labs Note initiated by RANDY Dunbar. I, RANDY Dunbar, have performed the documentation for this encounter in the presence of and acting as a scribe for Andre Lara MD. I performed the services which were documented by the scribe, and I agree with the accuracy of the documentation in this encounter. Andre Lara MD Reviewed and signed by: Andre Lara MD Resident in Dermatology [facility] Patient seen and evaluated with staff pit hand: Eliseo Sorensen MD Section of Dermatology [facility] * Eliseo Sorensen III, MD - 09/12/2018 9:30 AM EDT I directly supervised Dr. Ramakrishna Lara during this office visit. He presented the history and physical exam to me. I then saw and examined this patient with Dr. Lara. We reviewed the history and pertinent details and I confirmed the physical findings. I agree with the details of the history and physical exam as documented in Dr. Lara's note. ELISEO SORENSEN III, MD Staff Physician documented in this encounter Plan of Treatment Upcoming Encounters Date Type Department Care Team (Late st Contact Info) Description 01/22/2024 10:30 AM EST Appointment Mammography/DXA at [place] [phone] Ladi Mendosa MD [facility] HEMATOLOGY/[place] [address] 01/30/2024 11:30 AM EST Office Visit Dermatology at [address] [phone] Nilda Luis MD [facility] DR LIDIA [place] [address] 02/15/2024 9:30 AM EST [place] [phone] [place] [address] documented as of this encounter Visit Diagnoses Diagnosis Psoriasis Other psoriasis High risk medication use Encounter for long-term (current) use of other medications documented in this encounter Care Teams Brick Unloader Tender Relationship Specialty Start Date End Date Trinh Coates MD [address] [place] [address] PCP - General 01/11/10 documented as of this encounter
--- OUTSIDE RECORDS SUMMARY | 2023-09-07 11:27 | XMS_ITS | Encounter Summary ---
Author Organization [facility] Address [facility] [place] [address] Care Team Providers Care Tongue And Groove Machine Feeder Name Role Phone Trinh Coates MD Primary Care Provider [phone] Reason for Visit * Reason Onset Date Comments Medication Refill 09/12/2018 Encounter Details Date Type Department Care Team (Late st Contact Info) Description 09/12/2018 Refill Dermatology at [address] [phone] CallAndre MD [facility] DR LID[address] AME[place] [address] Psoriasis Social History Tobacco Use Types Packs/Day [...] encounter Miscellaneous Notes * Telephone Encounter - Trudi Vidal RPH - 09/12/2018 10:42 AM EDT Opened in error documented in this encounter Plan of Treatment Upcoming Encounters Date Type Department Care Team (Late st Contact Info) Description 01/22/2024 10:30 AM EST Appointment Mammography/[place] [phone] Ladi Mendosa MD [facility] HEMATOLOGY/[place] [address] 01/30/2024 11:30 AM EST Office Visit Dermatology at [facility] [address] [place] [phone] Nilda Luis MD [facility] [address] LIDIA [place] [address] 02/15/2024 9:30 AM EST Appointment Radiology at [place] [phone] [place] [address] documented as of this encounter Visit Diagnoses Diagnosis Psoriasis Other psoriasis documented in this encounter Care Teams Tongue And Groove Machine Feeder Relationship Specialty Start Date End Date Trinh Coates MD [facility] [address] [place] [address] PCP - General 01/11/10 documented as of this encounter
--- OUTSIDE RECORDS SUMMARY | 2023-09-07 11:27 | XMS_ITS | Encounter Summary ---
Author Organization [facility] [place] [address] Care Team Providers Care Chuck Wagon Cook Name Role Phone Trinh Coates MD Primary Care Provider [phone] Encounter Details Date Type Department Care Team (Late st Contact Info) Description 07/27/2019 Ancillary Procedure [place] [phone] Trinh Coates MD [facility] [address] [place] [address] Social History Tobacco Use Types [...] 01/22/2024 10:30 AM EST Appointment Mammography[place] [address] Ladi Mendosa MD [facility] HEMATOLOGY/[place] [address] 01/30/2024 11:30 AM EST Office Visit Dermatology at [facility] [address] [place] [address] Nilda Luis MD [facility] DR LIDIA [place] [address] 02/15/2024 9:30 AM EST [place] [phone] [place] [address] documented as of this encounter Procedures Procedure Name Priority Date/Time Associated Diagnosis Comments FILM LIBRARY STORAGE ONLY CT HEAD Routine 07/27/2019 12:00 AM EDT documented in this encounter Results * Film Library- Storage Only CT Head (07/27/2019 12:00 AM EDT) Narrative [facility] - 03/30/2022 4:02 PM EST This exam is auto-finalizing. It's purpose is for storage only. Trinh Coates MD [facility] FILM LIBRARY ORD ERABLES [place], [place] documented in this encounter Visit Diagnoses Not on filedocumented in this encounter Care Teams Chuck Wagon Cook Relationship Specialty Start Date End Date Trinh Coates MD [facility] [address] [place] [address] PCP - General 01/11/10 documented as of this encounter
--- OUTSIDE RECORDS SUMMARY | 2023-09-07 11:27 | XMS_ITS | Encounter Summary ---
Author Organization [place] [address] Care Team Providers Care Systems Test Analyst Name Role Phone Trinh Coates MD Primary Care Provider [phone] Reason for Referral * Consultation (Routine) - Canceled Specialty Diagnoses / Procedures Referred By Diamante marin Referred To Contact Neurology Diagnoses S/P breast reconstruction, bilateral Numbness and tingling in left arm Mali Lakhani MD [facility] [place] [address] [facility] [address] [place] [phone] Referral ID Status Reason Start Date Expiration Date V isits Requested Visits Authorized [id number] Canceled Consult, Test & Treat 04/16/2019 04/15/2020 1 1 Reason for Visit * Reason Comments Follow Up Surgery rediscuss lympnoid t ransfer left arm Encounter Details Date Type Department Care Team (Late st Contact Info) Description 04/16/2019 11:45 AM EST Office [place] [address] Mali Lakhani MD [facility] [place] [address] Surgery follow-up; S/P breast reconstruction, bilateral; Numbness and tingling in left arm; Lymphedema Social History Tobacco Use Types Packs/Day [...] Progress Notes * Mali Lakhani MD - 04/16/2019 11:45 AM EST Plastic Surgery Follow Up Note Mali Lakhani MD. Date of surgery: 10/18/18 Procedure(s): Lymphatic mapping, [...] and closure. Debridement of umbilicus. Deflation of synthetic chemist volume, This leaves 450 cc in the left tissue synthetic chemist and 500 cc on the right side Date of surgery: 04/26/17 Procedure(s): Bilateral breast reconstruction with attempted SALVADOR flaps, eventual tissue synthetic chemist placement with [place] Artoura 600 cc expanders placed bilaterally and filled with 450 cc of methyleneblue impregnated saline.) Complications: right parietal and visceral pleural tear, arterial flap failure bilaterally HPI: Patient arrives to clinic unaccompanied for today's visit. She reports that her arm has remained the same with minimal improvement. However, she states that the constant aching has improved since using the Flexi pump. She reports intermittent tingling in her left fingers, especially with a flexed arm at elbow. Examination: Patient is alert, conversant, comfortable, ambulating Right hand is neurovascularly intact. Persistent edema in left arm. Bypass incisions healing well. No signs of infection. Intermittent tinging in fingers ariadna with flexed arm at elbow Moderate case of lymphedema. Patient is functional and requires garment therapy. Impression: Wendy Sandoval is a 53 y.o. female who was seen today for follow- up after the above procedures. The patient is still experiencing intermittent tingling in her fingers of her left hand,especially when the arm is flexed at her elbow. She also reports tingling and pain into her neck and upper back. I explained to the patient that the tinging that she is experiencing in her fingers could potentially be caused by the lymphedema, however, it could also be a nerve compression and I would recommend an EMG to rule this out. I did explain to the patient that the pain and tingling into her neck and back sounds more consistent with a disk injury and not related to a neuropathy compression. We will begin with ordering an EMG to rule out the nerve compression first. The patient would like to proceed and a referral to Neurology has been placed for the EMG. We briefly discussed her current state following the lymphevenous bypass. We discussed further treatment to improve her symptoms of her lymphedema. One option would be to potentially implant a cluster of lymph nodes in hopes that the lymph node will start to eliminate the lymphedema. Another optionwould be processing tissue from inside the abdomen which processes lymphedema intra- abdominally. Wewill further address this at a later time. We will follow-up with the patient once she has completed the EMG study and the results have been received. Plan: Referral placed to Neurology for EMG. Follow up with Dr. Lakhani once the results from the EMG are obtained to discuss next steps. Katia Atkinson, have performed the documentation for this encounter in the presence of and acting as a scribe for MALI LAKHANI MD. MALI Atkinson MD, have performed the documentation for this encounter in the presence of and acting as a scribe for MALI LAKHANI MD. documented in this encounter Plan of Treatment Upcoming Encounters Date Type Department Care Team (Late st Contact Info) Description 01/22/2024 10:30 AM EST Appointment Mammography/[place] [address] Ladi Mendosa MD [facility] HEMATOLOGY/[place] [address] 01/30/2024 11:30 AM EST Office Visit Dermatology at [facility] [address] [place] [address] Nilda Luis MD [facility] DR LID[address] [place] [address] 02/15/2024 9:30 AM EST [place] [address] [place] [address] Scheduled Referrals Name Type Priority Associated Diagnoses Orde r Schedule Referral to Neurology Outpatient Referral Routine S/P breast reconstruction, bilateral Numbness and tingling in left arm Ordered: 04/16/2019 documented as of this encounter Visit Diagnoses Diagnosis Surgery follow-up Follow-up examination, following unspecified surgery S/P breast reconstruction, bilateral Breast replaced by other means Numbness and tingling in left arm Disturbance of skin sensation Lymphedema Other lymphedema documented in this encounter Care Teams Systems Test Analyst Relationship Specialty Start Date End Date Trinh Coates MD [address] [place] [address] PCP - General 01/11/10 documented as of this encounter
--- OUTSIDE RECORDS SUMMARY | 2023-09-07 11:27 | XMS_ITS | Encounter Summary ---
Author Organization [facility] Address [facility] [place] [address] Care Team Providers Care Career Portals Teacher Name Role Phone Trinh Coates MD Primary Care Provider [phone] Reason for Visit * Auth/Cert Specialty Diagnoses / Procedures Referred By Diamante marin Referred To Contact Diagnoses lymphedema Procedures PRO INCISION OF LYMPH CHANNELS PRO IV INJ TO TEST BLOOD FLOW IN FLAP/GRAFT INCISION & DRAINAGE LYMPHOCELE (WRVU 6.81) IV INJECTION, AGENT TO TEST VASC FLOW IN FLAP OR GRAFT, ENT (WRVU 1.95) Referral ID Status Reason Start Date Expiration Date Visits Re quested Visits Authorized [id number] 1 1 Encounter Details Date Type Department Care Team (Late st Contact Info) Description 10/18/2018 1:56 PM EDT - 10/18/2018 4:19 PM EDT Surgery [place] [id number] Mali Lakhani MD [facility] [place] [address] INCISION & DRAINAGE LYMPHOCELE (WRVU 6.81) Social History Tobacco Use Types Packs/Day Years [...] Sign Reading Time Taken Comments Blood Pressure 144/91 10/18/2018 1:32 PM EDT Pulse 77 10/18/2018 1:32 PM EDT Temperature 36.4 ??C (97.5 ??F) 10/18/2018 1:32 PM ED T Respiratory Rate 16 10/18/2018 1:32 PM EDT Oxygen Saturation 100% 10/18/2018 1:32 PM EDT Inhaled Oxygen Concentration - - Weight - - Height - - Body Mass Index - - documented in this encounter Discharge Instructions * Discharge Instructions* Jasmin Wilson RN - 10/18/2018 7:17 PM EDT POST ANESTHESIA INSTRUCTIONS Go home, rest, use caution on stairs. Change positions slowly. Do not smoke if you are alone. Diet light to regular as tolerated today. If nausea occurs start with clear liquids and progress slowly. No driving, operating machinery, alcoholic beverages and no important decisions for 24 hours. Monitor IV site for signs and symptoms of infection: increasing redness, swelling, foul drainage, if occurs contact M.D. Patients who have had endotrachial tubes (this tube, used by anesthesia department, is passed down your throat after you are asleep, to ensure safe air passage during your operation). A sore throat is normal due to the tube. Cold liquids or soothing lozenges will help ease the discomfort. The generalized muscle aches are due to the medication given to you just before the tube is inserted. As the medication wears off, you may develop muscle soreness, which usually goes away in 12-24 hours. * Patient Instructions* Yo Krueger MD - 10/18/2018 7:05 PM EDT DISCHARGE INSTRUCTIONS WOUND CARE: You must avoid sunlight exposure to your incision(s). Do not use any over the counter ointments on the incisions postoperatively unless instructed by your provider. Please apply bacitracin twice a day to your incisions for the next five days. Your sutures will be removed at your follow-up appointment. Remove dressing and put your lymphedema garment back on tomorrow. SHOWERING: Ok to shower after 48 hours. ANTIBIOTIC THERAPY: None needed. ACTIVITIES: Minimize contact to affected area(s). No heavy lifting until seen by MD. Keep arm elevated to decrease swelling. DIET: Regular healthy diet. DO???S AND DON???TS FOR THE NEXT 6 WEEKS Do not smoke or be around anyone who smokes for 2 weeks after your surgery this is because smoking delays healing and can lead to infection. Do take it easy for the next few weeks, especially the first few days after surgery. Do not participate in strenuous activities such as running or aerobics for 6 weeks. Do resume walking at a gentle pace. Protect your incisions from the sun for 6 months to 1 year. CALL MD IF: Your incision opens up. You have signs of infection that include: a temperature over 100.4F or 38C, redness or warmth spreading away from the incision lines after the first 48 hours, you notice a yellow pus-like or foul smelling drainage larger than dime size from the incisions or drainage sites, you feel increased pain that is not relived by your pain medicine. During office hours: Sunday - Sunday 8am-5pm call [phone]. On weekends or after hours call [phone] and ask the bleach machine operator to page the plastic surgery resident managed care liaison. MEDICATIONS: You may resume your home medications. CONTACT INFORMATION: During office hours: Sunday through Sunday 8 am to 5 pm Call [phone] On weekends or after hours: Call [phone] and ask the bleach machine operator to page the Plastic Surgery Resident managed care liaison. NEXT STEPS: You will have an appointment in approximately two week to remove your sutures. documented in this encounter Medications at Time [...] q 6 hrs daily as needed 11/15/2015 spironolactone (ALDACTONE) 25 mg Tablet Take 1 [...] DR tablet 1 CAP daily 03/27/2014 024 ustekinumab (STELARA) 45 mg/0.5 mL SyringeIndications:Psor iasis Inject 45mg subcutaneously every 12 weeks, starting 4 weeks after initial dose. 0.5 mL 5 09/04/2018 08/20/2019 triamcinolone (KENALOG) 0.1 % OintmentIndications:Pso riasis Apply 1 each topically 2 times daily. To affected areas on trunk 454 g 1 07/24/2018 11/15/2021 amLODIPine (NORVASC) 10 mg Tablet Take 10 mg by mouth daily. 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 90 capsule 3 05/29/2018 07/25/2022 acetaminophen (TYLENOL) 325 mg Tablet Take 2 tablets by mouth every 4 hours as needed for Pain. 11/03/2015 07/25/2022 documented as of this encounter H&P Notes * Phillip Zimmer MD - 10/18/2018 2:17 PM EDT Patient Name: Wendy Sandoval Patient Age: 53 y.o. Birthdate: 1965 Admit date: 10/18/2018 Attending Physician: Mali Lakhani MD Plastic Surgery Preoperative H&P: Patient Name: Wendy Sandoval Patient : 1965 Today's Date: 10/18/2018 Wendy Sandoval is a 53 y.o. female with left arm lymphadema who presents today for left arm lymphovenous bypass. No changes since last seen. Past Medical History: Diagnosis Date ??? Fibrocystic [...] IR Drain Check/Change/Remove 11/20/[address] [facility] [place] INTERVENTIONL RAD ??? IR MEDIPORT REMOVAL 01/25/2018 IR Mediport Removal 01/25/2018 Scooby Muñoz APRN [facility] [place] INTERVENTIONL RAD ??? PRG EMG, LARYNX N/A 11/02/2015 FACIAL NERVE MONITORING, SETUP LARYNGEAL performed by Valentina Lucas MD at [facility] OR ??? PRO BREAST RECONSTRUC W FREE FLAP Bilateral 04/26/2017 @BREAST RECONSTRUCTION W/ FREE FLAP, SUSAN (WRVU 42.58) performed by Mali Lakhani MD at [facility] [place] ??? PRO BREAST RECONSTRUC W FREE FLAP, W/O IMPLANT Bilateral 12/12/2017 @BREAST RECONSTRUCTION W/ LAT DORSI FLAP,W/O IMPLANT, SUSAN (WRVU 23.36) performed by Mali Lakhani MD at [facility] OR ??? PRO BREAST RECONSTRUC W TISS EXPANDR Bilateral 04/26/2017 BREAST RECONSTRUCTION, IMMEDIATE OR DELAYED, W/ TISSUE ROLL WINDER, INCLUDING SUBSEQUENT EXPANSION (WRVU 18.5) performed by Mali Lakhani MD at [facility] OR ? ? PRO DEBRIDEMENT SUBCUTANEOUS TISSUE 20 SQCM/< 06/22/2017 DEBRIDEMENT SKIN AND SUBCU, BREAST (WRVU 1.01) performed by Mali Lakhani MD at [facility] OR ??? PRO EXPLORE PARATHYROID GLANDS N/A 11/02/2015 PARATHYROIDECTOMY OR EXPLORATION OF PARATHYROID(S) performed by Valentina Lucas MD at [facility] OR ? ? PRO FULL THICK GRFT TRUNK <20 SQCM Bilateral 04/26/2017 FTSG, FREE, DIR CLOSE DONOR SITE, TRUNK, 20 SQ CM OR LESS (WRVU 9.15) performed by Mali Lakhani MD at [facility] OR ??? PRO MASTECTOMY, SIMPLE, COMPLETE Bilateral 04/26/2017 MASTECTOMY, SIMPLE, COMPLETE-SUSAN (WRVU 15.85) performed by Jolie Menendez MD at [facility] OR ??? PRO PARTIAL REMOVAL OF RIB Bilateral 04/26/2017 EXCISION OF RIB, PARTIAL (WRVU 7.26) performed by Mali Lakhani MD at [facility] OR ??? PRO REMOVE ARMPITS LYMPH NODES COMPLT Left 04/26/2017 LYMPHADENECTOMY, AXILLARY, COMPLETE (WRVU 13.87) performed by Jolie Menendez MD at [facility] OR ??? PRO REPLACE TISSUE ROLL WINDER Bilateral 12/12/2017 TISSUE ROLL WINDER REPLACEMENT, WITH PERMANENT PROSTHESIS, SUSAN (WRVU 8.01) performed by Mali Lakhani MD at [facility] OR ??? PRO REVISE BREAST RECONSTRUCTION Left 06/22/2017 REVISION OF RECONSTRUCTED BREAST (WRVU 10.41) performed by Mali Lakhani MD at [facility] OR ??? PRO REVISE BREAST RECONSTRUCTION Bilateral 12/12/2017 REVISION OFRECONSTRUCTED BREAST, SUSAN (WRVU 10.41) performed by Mali Lakhani MD at [facility] OR ??? PRO THYMECTOMY, TRANSCERVICAL N/A 11/02/2015 THYMECTOMY, TRANSCERVICAL APPROACH performed by Valentina Lucas MD at [facility] OR ??? SHOULDER SURGERY Left ??? [...] Maternal Cousin 57 Social History Socioeconomic History ??? Marital status: Spouse name: Not on file ??? Number of children: Not on file ??? Years of education: Not on file ??? Highest education level: Not on file Occupational History ??? Not on file Social Needs ??? Financial resource strain: Not on file ??? Food insecurity: Worry: Not on file Inability: Not on file ??? Transportation needs: Medical: Not on file Non-medical: Not on file Tobacco Use ??? Smoking status: Former Smoker ??? Smokeless tobacco: Never Used Substance and Sexual Activity ??? Alcohol use: Yes Comment: socially once a month ??? Drug use: No ??? Sexual activity: Not on file Lifestyle ??? Physical activity: Days per week: Not on file Minutes per session: Not on file ??? Stress: Not on file Relationships ??? Social connections: Talks on phone: Not on file Gets together: Not on file Attends scientology service: Not on file Active member of club or organization: Not on file Attends meetings of clubs or organizations: Not on file Relationship status: Not on file ??? Intimate partner violence: Fear of current or ex partner: Not on file Emotionally abused: Not on file Physically abused: Not on file Forced sexual activity: Not on file Other Topics Concern ??? Not on file Social History Narrative ??? Not on file Allergies Allergen Reactions ??? Zoloft [Sertraline] PSORIASIS FLARE Review of systems: As per HPI, otherwise non-contributory. Exam: General: NAD Resp: CTAB CV: normal rate, regular rhythm Extremity: Left arm lymphedema, surgical site marked A/P: Wendy Sandoval is a 53 y.o. female with left arm lymphadema who presents today for left armlymphovenous bypass. - Proceed to OR. The risks, benefits and indications were reviewed with the patient and there remains an indication for surgery. Consent signed. - Preoperative abx ordered - Surgical site marked Phillip Zimmer MD Plastic Surgery Resident, PGY-3 documented in this encounter Miscellaneous Notes * Op Note - Mali Lakhani MD - 10/18/2018 8:57 PM EDT [facility] [place] Operative Note Patient Name: Wendy Sandoval : [id number] MR#: [id number] Case Date: 10/18/2018 Surgeon: Surgeon(s) and Role: * Mali Lakhani MD - Primary * Yo Krueger MD - Resident * Phillip Zimmer MD - Resident Preoperative diagnosis: lymphedema Postoperative diagnosis: lymphedema Procedure(s) (LRB): INCISION & DRAINAGE LYMPHOCELE (WRVU 6.81) (Left) IV INJECTION, AGENT TO TEST VASC FLOW IN FLAP OR GRAFT, ENT (WRVU 1.95) (Left) Anesthesia: General Estimated Blood Loss: 3 ml Specimens removed during surgery: None Drains: none Drain/Device Site 12/12/17 1805 Left upper mid axillary collapsible closed device (Active) Drain/Device Site 12/12/17 1807 Left lower mid axillary collapsible closed device (Active) Drain/Device Site 12/12/17 1807 Right upper mid axillary collapsible closed device (Active) Drain/Device Site 12/12/17 1808 Right lower mid axillary collapsible closed device (Active) Surgical Closure: Primary Closure - skin incision is completely closed without any wires, destiney, drains or other devices Disposition: awakened from anesthesia, extubated and taken to the recovery room in a stable condition, having suffered no apparent untoward event. Condition: doing well without problems (Please see the Surgical Encounter Summary for any Implant and Specimen details pertinent to this patient.) HPI/Surgical Indications: 53 year old female s/p bilateral mastectomy with sentinel lyph node dissection and now symptomatic left arm lymphedema. We offered her lymphatic imaging and lymphovenous bypass and she agreed, electing to proceed. Procedure Description: The patient was identified and marked in the preoperative holding area. The surgical plan was reviewed, she understood the potential risks and complications, and elected to proceed. The patient was brought to the operating room and placed on the operating room table in the supine position. Anesthetic monitors and SCDs were applied. After induction of general anesthesia the patient was intubated orally and maintained on general anesthesia throughout the remainder of the case. The left arm was prepped and draped in a standard sterile fashion. The operation began by performing lymphatic imaging utilizing the [employer] imaging system. Small aliquots of indocyanine green were injected between the webspaces of the finger and then on the volar aspect of the thenar eminence and hyperthenar eminence. Laser camera imaging was utilized to trace out lymphatic channels on the forearm. 2 were identified which appeared to be able to be used for lymphovenous bypass. Both were dorsal, 1 just proximal to the wrist crease and the other over the mobile wad of the proximal forearm. There were no obvious mappable lymphatic channels rather a diffuse pattern on the volar aspect of the forearm. The microscope was then brought in and our incision was made over the proximal wrist site first. Th e incision was taken through skin and dermis. Utilizing our markings we were able to locate a lymphatic channel in the superficial fat. The nearby vein was identified as well for bypass. Both structures were dissected out to allow for tension-free repair. Next, under 30 X magnification an end-to-end anastomosis was performed between the lymphatic channel and the vein in an anterograde fashion utilizing 10-0 micro suture. Diameter of each of the structures was 1 mm. We were able to visualize indocyanine green traversing the anastomosis and entering the vein after the bypass was performed. The wound was closed with interrupted 4-0 Prolene suture at the level of the skin after irrigation and a hemostatic surveillance. We then went to the more proximal aspect of the forearm and made our incision in the premarked area through skin and dermis. We are again able to locate the lymphatic at the level of the superficial fat. Nearby vein was also identified and dissected out. There was a 2-1 size mismatch with the vein being larger. There is no adjacent alternative vein we therefore opted to utilize a telescoping technique for the bypass. Suture was passed through the external wall of the vein then internally and across to the lymphatic and then back internal to external as a horizontal mattress into the vein. When the suture was tied down this effectively telescoped the lymphatic into the vein itself. The size mismatch was then addressed utilizing micro-hemostatic clips to take up anyexcess venous capacity at its cut end. The horizontal mattress suture was then cut and removed and the lymphatics stayed effectively telescoped into the vein. Lymphatic was not pumping and we could not milk any contrast beyond its and however it was well visualized with laser camera imaging telescop ed 5 mm into the vein. The size of the lymphatic was 0.5 mm. The size of the vein was approximately1.2 mm. Wound was irrigated and a final hemostatic surveillance was performed. Closure was performed with 4-0 Prolene suture in the interrupted fashion. Xeroform and bacitracin followed by a padded compressive wrap was applied to the arm. The drapes were removed and the patient was weaned from anesthesia and extubated in the operating room. She was transitioned to her or stretcher and transportedto the postanesthesia care unit where she was reported to be stable and breathing spontaneously. There were no apparent complications to the procedure and the patient tolerated the procedure well. All sponge and needle counts were reported as correct by nursing staff at the end of the case. Infection Bundle used? No Attestation: Case Date: 10/18/2018 I was present and I participated during the entire procedure (does not need to include opening and closing). MALI LAKHANI MD 10/22/2018 documented in this encounter Plan of Treatment Upcoming Encounters Date Type Department Care Team (Late st Contact Info) Description 01/22/2024 10:30 AM EST Appointment Mammography/[place] [address] Ladi Mendosa MD [facility] HEMATOLOGY/[place] [address] 01/30/2024 11:30 AM EST [facility] [address] [place] [address] Nilda Luis MD [facility] DR LIDIA [place] [address] 02/15/2024 9:30 AM EST [place] [phone] [place] [address] documented as of this encounter Procedures Procedure Name Priority Date/Time Associated Diagnosis Comments Iv Inj To Test Blood Flow In Flap/Graft (67946) Yes 10/18/2018 3:43 PM EDT S/P breast reconstruction, bilateral Incision Of Lymph Channels (25617) Yes 10/18/2018 3:43 PM EDT S/P breast reconstruction, bilateral IV INJECTION, AGENT TO TEST VASC FLOW IN FLAP OR GRAFT, ENT Routine 10/18/2018 1:12 PM EDT S/P breast reconstruction, bilateral documented in this encounter Visit Diagnoses Diagnosis S/P breast reconstruction, bilateral Breast replaced by other means S/P breast reconstruction, bilateral Breast replaced by other means documented in this encounter Administered Medications Inactive Administered Medications - up to 3 most recent administrations Medication Order MAR Action Action Date Dose Rate Site acetaminophen (TYLENOL) tablet 1,000 mg 1,000 mg, Oral, EVERY 6 HOURS PRN, Starting on Sun10/17/18 at 1958, Until Sun10/18/18 at 2257, Pain, Maximum dose of acetaminophen is 4000 mg from all sources in 24 hours., Routine Given 10/18/2018 8:50 PM EDT 1,000 mg Given 10/18/2018 1:55 PM EDT 1,000 mg bacitracin ointment ONCE PRN, Starting on Sun10/18/18 at 1908, Until Sun10/18/18 at 2257, Intra-Operative (Intra-Procedure) Given 10/18/2018 7:08 PM EDT 1 Tube indocyanine green (IC-GREEN) injection ONCE PRN, Starting on Sun10/18/18 at 1630, Until Sun10/18/18 at 2257, Intra-Operative (Intra-Procedure), Routine Given 10/18/2018 4:30 PM EDT 2.5 mg Left Arm lidocaine-EPINEPHrine 1.5 %-1:200,000 injection ONCE PRN, Starting on Sun10/18/18 at 1635, Until Sun10/18/18 at 2257, Intra-Operative (Intra-Procedure), Routine Given 10/18/2018 4:35 PM EDT 6 mLs oxyCODONE (ROXICODONE) immediate release tablet 5 mg 5 mg, Oral, EVERY 4 HOURS PRN, Starting on Sosa 10/17/18 at 1958, Until Sun10/18/18 at 2257, Pain, Routine prochlorperazine (COMPAZINE) injection 5 mg 5 mg, Intravenous, EVERY 30 MIN PRN, 2 doses, Starting on Sun10/18/18 at 1916, Until Sun10/18/18 at 2051, Nausea, May repeat 5 mg once in 30 minutes. If multiple antiemetics ordered, use ondansetron first and if ineffective use prochlorperazine second and if ineffective use promethazine, PACU Recovery, Routine Given 10/18/2018 8:37 PM EDT 5 mg documented in this encounter Active and Recently Administered Medications Times are shown in EDT. Scheduled Medication Order 10/16/2018 10/17/2018 10/18/2018 ceFAZolin (ANCEF) 1g in dextrose 5% 50mL (COMPLETED) 1 g, Intravenous, ONCE, 1 dose, On Sun10/18/18 at 1445, Administer over 30 Minutes, Day of Surgery (Day of Procedure), Indication for (Active or Suspected): Prophylaxis 1603 (Given - Provid er: Lakeisha Morse MD)1624 (Canceled Entry - Provider: Lakeisha Morse MD) PRN Medication Order 10/16/2018 10/17/2018 10/18/2018 acetaminophen (TYLENOL) tablet 1,000 mg 1,000 mg, Oral, EVERY 6 HOURS PRN, Starting on Sosa 10/17/18 at 1958, Until Sun10/18/18 at 2257, Pain, Maximum dose of acetaminophen is 4000 mg from all sources in 24 hours., Routine 1355 (Given - Provid er: Natalya Murillo RN)0 (Given - Provider: Jasmin Wilson RN) bacitracin ointment (CANCELED) ONCE PRN, Starting on Sun10/18/18 at 1908, Until Sun10/18/18 at 2257, Intra-Operative (Intra-Procedure) 1908 (Given - Provid er: Mali Lakhani MD) indocyanine green (IC-GREEN) injection (CANCELED) ONCE PRN, Starting on Sun10/18/18 at 1630, Until Sun10/18/18 at 2257, Intra-Operative (Intra-Procedure), Routine 1630 (Given - Provid er: Mali Lakhani MD) lidocaine-EPINEPHrine 1.5 %-1:200,000 injection (CANCELED) ONCE PRN, Starting on Sun10/18/18 at 1635, Until Sun10/18/18 at 2257, Intra-Operative (Intra-Procedure), Routine 1635 (Given - Provid er: Mali Lakhani MD) oxyCODONE (ROXICODONE) immediate release tablet 5 mg 5 mg, Oral, EVERY 4 HOURS PRN, Starting on Sosa 10/17/18 at 1958, Until Sun10/18/18 at 2257, Pain, Routine prochlorperazine (COMPAZINE) injection 5 mg (CANCELED) 5 mg, Intravenous, EVERY 30 MIN PRN, 2 doses, Starting on Sun10/18/18 at 1916, Until Sun10/18/18 at 2050, Nausea, May repeat 5 mg once in 30 minutes. If multiple antiemetics ordered, use ondansetron first and if ineffective use prochlorperazine second and if ineffective use promethazine, PACU Recovery, Routine 2036 (Given - Provid er: Jasmin Wilson RN) documented in this encounter Care Teams Career Portals Teacher Relationship Specialty Start Date End Date Trinh Coates MD [facility] [address] [place] [address] PCP - General 01/11/10 documented as of this encounter
--- OUTSIDE RECORDS SUMMARY | 2023-09-07 11:27 | XMS_ITS | Encounter Summary ---
Author Organization [facility] Address [facility] [place] [address] Care Team Providers Care Banbury Mill Operator Name Role Phone Trinh Coates MD Primary Care Provider [phone] Reason for Visit * Auth/Cert Specialty Diagnoses [...] Expiration Date Visits Re quested Visits Authorized [id number] 1 1 Encounter Details Date Type Department Care Team (Late st Contact Info) Description 10/18/2018 3:44 PM EDT Anesthesia Event [place] [address] Cesario Segundo MD [facility] [address] Lakeisha Morse MD [facility] [place] [address] Anesthesia Record Procedure Summary Procedure Name Responsible Anesthesiologist Anesthesia Start Time Anesthesia Stop Time INCISION & DRAINAGE LYMPHOCELE (WRVU 6.81) (Left: Arm) Cesario Segundo MD 10/18/18 1544 10/18/18 1910 Events Date Time Event Comment 10/18/2018 1510 1544 AN Verify 1544 Start 1545 An Start Data 1550 An Induction 1553 An Intubation 1600 Quick Note Temperature pro be malfunctioning. Skin temperature monitor showing 35.5 1603 Anesthesia Ready 1619 Quick Note Esophageal temp erature probe replaced 1633 Procedure Start 1641 Handoff Intra-procedure anesthesia care was transferred after review of the patient's history, current anesthetic/surgical status and plan, according to the ANES Provider Handoff Checklist. 185 Procedure Stop 1856 Extubation/LMA Out Patient s pontaneously ventilating; adequate tidal volumes ( >450 mL); regular respiratory rate & rhythm; minute ventilation > 4L/min; following commands. Oropharynx suctioned. Extubated without issue to 6L/min O2 via face mask. VSS. 1900 an stop data 1908 Recovery or ICU Handoff Adriana ent care was transferred to the destination unit staff after review of the patient's medical history, current anesthetic/surgical status and plan, according to the Provider Handoff Checklist. 1909 Stop Patient awake; appropriately follows commands. Spontaneous ventilation without issue. VSS. Full report given to TAKE OUT WAITRESS. Meds Name Total Propofol 180 mg Propofol INF 481.69 mg fentaNYL 75 mcg IV Lidocaine 30 mg Dexamethasone 8 mg Ondansetron 4 mg ePHEDrine 35 mg PHENYLephrine 320 mcg ceFAZolin (ANCEF) 1g in dextrose 5% 50mL 2 g Dexmedetomidine 4 mcg HYDROmorphone 0.8 mg Lactated Ringers 450 mL * Agents Name O2 Air N2O Sevoflurane (et) O2 Auxiliary Flowmeter 1 * Blood No blood administrations on file. Lines, Drains, and Airways Type Details Placement Removal Incision 12/12/17; 1632; scapula; 10/17/21 (LDA cleanup utility RA#[id number]); 1715 (LDA cleanup utility RA#[id number]) 12/12/17 1632 by Constanza Corona RN 10/17/21 1715 by Yraa Ly Incision 12/12/17; 1632; scapula; 10/17/21 (LDA cleanup utility RA#[id number]); 1715 (LDA cleanup utility RA#[id number]) 12/12/17 1632 by Constanza Corona RN 10/17/21 1715 by Yara Ly Incision 12/12/17; 1800; [place] [address]; 10/17/21 (LDA cleanup utility RA#[id number]); 1715 (LDA cleanup utility RA#[id number]) 12/12/17 1800 by Delio Trejo RN 10/17/21 1715 by Yara Ly Incision 12/12/17; 1800; [place] [address]; 10/17/21 (LDA cleanup utility RA#[id number]); 1715 (LDA cleanup utility RA#[id number]) 12/12/17 1800 by Delio Trejo RN 10/17/21 1715 by Yara Ly Drain/Device Site 12/12/17; 1805; Left ; upper; mid axillary; collapsible closed device; Dr. Gimenez; Drain number 1; 01/31/23 LDA not present on assessment; 01/31/23; 1424 12/12/17 1805 by Constanza Corona, JENNYFER 01/31/23 1424 by Susana Posadas RN Drain/Device Site 12/12/17; 1807; Left ; lower; mid axillary; collapsible closed device; 01/31/23 LDA not present on assessment; 01/31/23; 1425 12/12/17 1807 by Constanza Corona, RN 01/31/23 1425 by Susana Posadas RN Drain/Device Site 12/12/17; 1807; Righ t; upper; mid axillary; collapsible closed device; 01/31/23 not present on admission; 01/31/23; 1423 12/12/17 1807 by Constanza Corona, RN 01/31/23 1423 by Susana Posadas RN Drain/Device Site 12/12/17; 1808; Righ t; lower; mid axillary; collapsible closed device; 01/31/23 LDA not present on assessment; 01/31/23; 1424 12/12/17 1808 by Constanza Corona, RN 01/31/23 1424 by Susana Posadas RN Incision 01/25/18; 1418; ches t; horizontal; Mediport removal; 10/17/21 (LDA cleanup utility RA#[id number]); 1715 (LDA cleanup utility RA#[id number]) 01/25/18 1418 by Tony Colon RN 10/17/21 1715 by Yara Ly Incision 07/12/18; 0803; groi n; laparoscopic puncture; adrenal vein sampling; 10/17/21 (LDA cleanup utility RA#[id number]); 1715 (LDA cleanup utility RA#[id number]) 07/12/18 0803 by Jadyn Hammer RN 10/17/21 1715 by Yara Ly (RETIRED) Peripheral IV Line - Single Lumen 10/18/18; 1509; cephalic vein (lateral side of arm), right; osap-app-iaazud catheter system; 22 gauge, 1 in length, 3/4 in length; K. Labgriselda VINESN VAS; distraction, intradermal injection, tolerated well, appears comfortable; no longer indicated, catheter/device intact; 10/18/18; 205010/18/18 1509 by Lay Taylor RN 10/18/182050 by Jasmin Wilson RN Supraglottic Mask Ventilation: Byron gonzalez (1); LMA Type: iGel; LMA Size: 4; Inserted by: Lakeisha Morse MD; Removal Date: 10/18/18; Removal Time: 185510/18/18 160 by Lakeisha Morse MD 10/18/18 185 by Kelly Garsia CRNA Incision 10/18/18; 1635; arm (Distal incision); 10/17/21 (LDA cleanup utility RA#[id number]); 1715 (LDA cleanup utility RA#[id number]) 10/18/18 1635 by Nathaly Hooper RN 10/17/21 1715 by Yara Ly Incision 10/18/18; 1743; arm (Proximal Incision); 10/17/21 (LDA cleanup utility RA#[id number]); 1715 (LDA cleanup utility RA#[id number]) 10/18/18 1743 by Nathaly Hooper RN 10/17/21 1715 by Yara Ly documented in this encounter Social History Tobacco [...] OR Notes * Anesthesia Postprocedure Evaluation - Cesario Segundo MD - 10/18/2018 7:52 PM EDT Department of Anesthesiology Post-procedure Note Patient: Wendy Sandoval Procedure Summary Date: 10/18/18 Room / Location: [facility] OR [facility] MAIN OR Anesthesia Start: 1543 Anesthesia Stop: 1909 Procedures: INCISION & DRAINAGE LYMPHOCELE (WRVU 6.81) (Left Arm) IV INJECTION, AGENT TO TEST VASC FLOW IN FLAP OR GRAFT, ENT (WRVU 1.95) (Left Arm) Diagnosis: S/P breast reconstruction, bilateral (lymphedema) Surgeon: Andre Gimenez MD Responsible Provider: Cesario Segundo MD Anesthesia Type: general ASA Status: 2 All Anesthesia Providers: Anesthesiologist: Dinesh Gupta MD; Cesario Segundo MD WOODWORKING MACHINE OFFBEARER: Kelly Garsia CRNA Athletic Turf Worker: Lakeisha Morse MD Vitals Value Taken Time BP 133/92 10/18/2018 7:45 PM Temp Pulse Resp SpO2 92 % 10/18/2018 7:51 PM Pain Level Vitals shown include unvalidated device data. Patient Location: PACU[facility] Level of Consciousness: Awake and Alert Pain Management: Satisfactory Analgesia PONV: None Cardiovascular Status: At Baseline and Hemodynamically Stable Respiratory Status: At Baseline and Room Air Postoperative Fluid Status: Intravascular EUvolemia Possible Anesthetic Complications: NONE apparent at time of evaluation Final Primary Anesthesia Type: General (The anesthetic type performed was the same as planned.) Comments: CESARIO SEGUNDO MD * Anesthesia Preprocedure Evaluation - Dinesh Gupta MD - 10/17/2018 8:29 PM EDT Pre-Anesthesia Evaluation for: Wendy Sandoval a 53 y.o. female. Procedure(s): INCISION & DRAINAGE LYMPHOCELE (WRVU 6.81) IV INJECTION, AGENT TO TEST VASC FLOW IN FLAP OR GRAFT, ENT (WRVU 1.95) Patient Active Problem List Diagnosis ??? History of breast cancer ??? Seroma of breast ??? Bacterial conjunctivitis ??? Hypokalemia ??? Surgery follow-up ??? Abdominal wound dehiscence ??? S/P breast reconstruction, bilateral ??? Malignant neoplasm of upper-outer quadrant of left breast in female, estrogen receptor positive ??? Hyperparathyroidism ??? Obstructive sleep apnea (adult) (pediatric) ??? OA (osteoarthritis) ??? Overweight(278.02) ??? Hypertension ??? Depression Past Medical History: Diagnosis Date ??? Fibrocystic [...] IR Mediport Removal 01/25/2018 Scooby Muñoz, AARTI [facility] INTERVENTIONL [...] BREAST RECONSTRUCTION, IMMEDIATE OR DELAYED, W/ TISSUE AVIATION NEUROPSYCHOLOGIST, INCLUDING SUBSEQUENT EXPANSION (WRVU 18.5) performed by [...] MEDICAL CENTER OR ??? PRO REPLACE TISSUE AVIATION NEUROPSYCHOLOGIST Bilateral 12/12/2017 TISSUE AVIATION NEUROPSYCHOLOGIST REPLACEMENT, WITH PERMANENT PROSTHESIS, SUSAN (WRVU 8.01) performed by Andre Gimenez MD at [facility] OR ??? PRO REVISE BREAST RECONSTRUCTION Left 06/22/2017 REVISION OF RECONSTRUCTED BREAST (WRVU 10.41) performed by Andre Gimenez MD at [facility] OR ??? PRO REVISE BREAST RECONSTRUCTION Bilateral 12/12/2017 REVISION OFRECONSTRUCTED BREAST, SUSAN (WRVU 10.41) performed by Andre Gimenez MD at [facility] OR ??? PRO THYMECTOMY, TRANSCERVICAL N/A 11/02/2015 THYMECTOMY, TRANSCERVICAL APPROACH performed by Valentina Lucas MD at [facility] OR ??? SHOULDER SURGERY Left ??? UMBILICAL HERNIA REPAIR Social History Tobacco Use ??? Smoking status: Former Smoker ??? Smokeless tobacco: Never Used Substance Use Topics ??? Alcohol use: Yes Comment: socially once a month Social History Substance and Sexual Activity Drug Use No Allergies Allergen Reactions ??? Zoloft [Sertraline] PSORIASIS FLARE Medications: MAR and/or home medications have been reviewed. Physical Exam: There were no vitals filed for this visit. There is no height or weight on file to calculate BMI. Airway Assessment: Mallampati: II TM distance: >3 FB Neck ROM: full Cardiovascular Assessment: Pulmonary Assessment: Dental Assessment: - normal exam Misc Assessment: Anesthesia Plan: ASA 2 general, with a(n) intravenous induction Wendy Sandoval is a 53 y.o. 75.5kg female former smoker with h/o JACQUELYN (CPAP), HLD (statin), depression/anxiety (prozac), HTN (Spiranolactone, amlidipine, losartan), breast cancer s/p mastectomy andreconstruction now with lymphedema, chronic pain (gabapentin) presenting for Procedure(s): INCISION & DRAINAGE LYMPHOCELE (WRVU 6.81) IV INJECTION, AGENT TO TEST VASC FLOW IN FLAP OR GRAFT, ENT (WRVU 1.95) with Dr. Gimenez. No current N/V. NPO status appropriate. ROS: Patient denies CVA, seizure, CAD, chest pain, URI, asthma, COPD, SOB, CALDERÓN, orthopnea, thyroid disease, GERD, liver disease, kidney disease, bleeding disorder. METs>4 Code Status: full code intraoperatively Meds: Current Facility-Administered Medications: ??? acetaminophen (TYLENOL) tablet 1,000 mg, 1,000 mg, Oral, Q6H PRN, Yo Krueger MD??? oxyCODONE (ROXICODONE) immediate release tablet 5 mg, 5 mg, Oral, Q4H PRN, Yo Krueger MD Current Outpatient Medications: ??? spironolactone (ALDACTONE) 25 mg Tablet, Take 1 tablet by mouthdaily., Disp: 90 tablet, Rfl: 3??? amLODIPine (NORVASC) 10 mg Tablet, Take 10 mg by mouth daily., Disp: , Rfl: ??? gabapentin (NEURONTIN) 300 mg Capsule, Take 1 capsule by mouth 3 times daily., Disp:90 capsule, Rfl: 3??? losartan (COZAAR) 100 mg Tablet, take 1 tablet by mouth once daily, Disp: , Rfl: 0??? atorvastatin (LIPITOR) 20 mg Tablet, Take 1 tablet by mouth daily., Disp: , Rfl: 0??? fluoxetine (PROZAC) 40 mg capsule, daily., Disp: , Rfl: ??? ustekinumab (STELARA) 45 mg/0.5 mL Syringe, Inject 45mg subcutaneously every 12 weeks, starting 4 weeks after initial dose., Disp: 0.5 mL, Rfl: 5??? triamcinolone (KENALOG) 0.1 % Ointment, Apply 1 each topically 2 times daily. To affected areas on trunk, Disp: 454 g, Rfl: 1??? tamoxifen (NOLVADEX) 20 mg Tablet, Take 1 tablet by mouth daily., Disp: 90 tablet, Rfl: 3??? potassium chloride 20 mEq Tablet Sustained Release, take 3 tablets by mouth daily, Disp: , Rfl: 0??? cholecalciferol, Vitamin D3, (VITAMIN D-3) 5,000 unit Tablet, Take by mouth., Disp: , Rfl: ??? acetaminophen (TYLENOL) 325 mg Tablet, Take 2 tablets by mouth every 4 hours as needed for Pain., Disp: , Rfl: ??? ferrous gluconate 324 mg (37.5 mg iron) Tablet, Take 324 mg by mouth daily., Disp: , Rfl: ??? clobetasol (TEMOVATE) 0.05 % Cream, Apply to affected areas on knees,elbows and hands twice daily for two week cycles as needed., Disp: 60 g, Rfl: 3 Allergies: -- Zoloft (Sertraline) -- PSORIASIS FLARE Anesth hx: Adjuct mask ventilation, ETT 7mm, Mac3 blade grade 1 view Smoking: former Drug use: no Alcohol use: socially EKG: Sinus tachycardiaNonspecific T wave abnormality ECHO: ?? 1. Technically difficult study. 2. Mild concentric [...] See remainder of report for additional findings. Labs: 07/24/18 07/12/181613 0622 WBC 9.6* -- HGB 11.8 -- HCT 36.5 -- PLATELET 338 365* 07/24/18 07/12/181613 0622 NA 143 -- K 3.8 -- CL 102 -- CO2 27 -- BUN 29* -- CREATININE 1.27* 0.98 07/24/181613 AST 21 ALT 21 ALKPHOS 79 BILITOT 0.5 No results for input(s): PT, INR, PTT in the last 168 hours. Access: PIV Plan for GA with LMA; standard ASA monitoring. Region - Other Informed Consent: Anesthetic plan and risks discussed with patient. Use of blood products discussed with patient who consented to blood products. Plan discussed with attending. PAT Clinic Note documented in this encounter Plan of Treatment Upcoming Encounters Date Type Department Care Team (Late st Contact Info) Description 01/22/2024 10:30 AM EST Appointment Mammography/DXA at [place] [phone] Ladi Mendosa MD [facility] DR HEMATOLOGY/[place] [address] 01/30/2024 11:30 AM EST Office Visit Dermatology at [address] [phone] Nilda Luis MD [facility] [address] [place] [address] 02/15/2024 9:30 AM EST Appointment [place] [address] [place] [address] documented as of this encounter Visit Diagnoses Not on filedocumented in this encounter Administered Medications Inactive Administered Medications - up to 3 most recent administrations Medication Order MAR Action Action Date Dose Rate Site ceFAZolin (ANCEF) 1g in dextrose 5% 50mL 1 g, Intravenous, ONCE, 1 dose, On Sun10/18/18 at 1445, Administer over 30 Minutes, Day of Surgery (Day of Procedure), Indication for (Active or Suspected): Prophylaxis Given 10/18/2018 4:03 PM EDT 2 g dexamethasone (DECADRON) injection Intravenous, PRN, Starting on Sun10/18/18 at 1603, Until Sun10/18/18 at 1910, Anesthesia Intra-op, Routine Given 10/18/2018 4:03 PM EDT 8 mg dexmedetomidine (PRECEDEX) injection PRN, Starting on Sun10/18/18 at 1634, Until Sun10/18/18 at 1910, Anesthesia Intra-op, Routine Given 10/18/2018 4:34 PM EDT 4 mcg ePHEDrine 5 mg/mL multi-dose injection Intravenous, PRN, Starting on Sun10/18/18 at 1604, Until Sun10/18/18 at 1910, Anesthesia Intra-op, Routine Given 10/18/2018 4:14 PM EDT 15 mg Given 10/18/2018 4:09 PM EDT 10 mg Given 10/18/2018 4:04 PM EDT 10 mg fentaNYL 50 mcg/mL multi-dose injection Intravenous, PRN, Starting on Sun10/18/18 at 1550, Until Sun10/18/18 at 1910, Anesthesia Intra-op, Routine Given 10/18/2018 4:34 PM EDT 50 mcg Given 10/18/2018 3:50 PM EDT 25 mcg HYDROmorphone (DILAUDID) injection PRN, Starting on Sun10/18/18 at 1719, Until Sun10/18/18 at 1910, Anesthesia Intra-op, Routine Given 10/18/2018 6:58 PM EDT 0.2 mg Given 10/18/2018 6:43 PM EDT 0.2 mg Given 10/18/2018 5:37 PM EDT 0.2 mg lactated ringers infusion CONTINUOUS PRN, Starting on Sun10/18/18 at 1544, Until Sun10/18/18 at 1910, Anesthesia Intra-op New Bag 10/18/2018 3:44 PM EDT lidocaine (PF) (XYLOCAINE) 100 mg/5 mL (2 %) injection Intravenous, PRN, Starting on Sun10/18/18 at 1550, Until Sun10/18/18 at 1910, Anesthesia Intra-op, Routine Given 10/18/2018 3:50 PM EDT 30 mg ondansetron (ZOFRAN) injection Intravenous, PRN, Starting on Sun10/18/18 at 1739, Until Sun10/18/18 at 1910, Anesthesia Intra-op, Routine Given 10/18/2018 5:39 PM EDT 4 mg PHENYLephrine in NS (PF) (LENA-SYNEPHRINE) 0.8 mg/10 mL (80 mcg/mL) multi-dose injection Syrg Intravenous, PRN, Starting on Sun10/18/18 at 1618, Until Sun10/18/18 at 1910, Anesthesia Intra-op, Routine Given 10/18/2018 4:28 PM EDT 160 mcg Given 10/18/2018 4:18 PM EDT 160 mcg propofol (DIPRIVAN) 10 mg/mL bolus injection (Anesthesia) Intravenous, PRN, Starting on Sun10/18/18 at 1550, Until Sun10/18/18 at 1910, Anesthesia Intra-op Given 10/18/2018 3:50 PM EDT 180 mg propofol (DIPRIVAN) infusion Intravenous, CONTINUOUS PRN, Starting on Sun10/18/18 at 1615, Until Sun10/18/18 at 1910, Anesthesia Intra-op, Routine Rate/Dose Change 10/18/2018 6:11 PM EDT 30 mcg/kg/min 13.6 mL/hr Rate/Dose Change 10/18/2018 4:34 PM EDT 50 mcg/kg/min 22.7 mL/hr New Bag 10/18/2018 4:15 PM EDT 30 mcg/kg/min 13.6 mL/hr documented in this encounter Care Teams Banbury Mill Operator Relationship Specialty Start Date End Date Trinh Coates MD [address] [place] [address] PCP - General 01/11/10 documented as of this encounter
--- OUTSIDE RECORDS SUMMARY | 2023-09-07 11:27 | XMS_ITS | Encounter Summary ---
Author Organization [facility] Address [facility] [place] [address] Care Team Providers Care Creative Manager Name Role Phone Trinh Coates MD Primary Care Provider [phone] Encounter Details Date Type Department Care Team (Late st Contact Info) Description 2019 Telephone Radiation Oncology at [address] [phone] Narcisa Hair RN Social History Tobacco Use Types Packs/Day [...] encounter Miscellaneous Notes * Telephone Encounter - Narcisa Hair RN - 2019 4:48 PM EDT Radiation Oncology Nurse Telephone Note [facility]- [place], [place] ---- Message from Cosme Sawyer sent at 2019 12:13 PM EDT ----- Regarding: please call Wendy called and wanted to know if she should come in on Sunday or if she should have a TOV. She is having pain in her breast. Her apt is an in person FUV right now. I told her I would have nursingcall to confirm whether or not she could have a telephone visit. I will leave the apt as an in person visit for now. Please let me know if something needs to change. Favian 4:45 06/27/19 Called patient. She states that her left axilla region has pain gosia she uses her arm alot with house or yard work. The pain has been intermittent for a while. She uses a lymphedema pumpmachine every night. She doesn't see and visible differences in the size of her arms, but she feelsthat her right axilla gets swollen when she over works her arm. She reports that overall, this pain has greatly improved and it used to be much worse. Plan: she will plan to see Dr Choi Sunday so that she can physically assess her . documented in this encounter Plan of Treatment Upcoming Encounters Date Type Department Care Team (Late st Contact Info) Description 01/22/2024 10:30 AM EST Appointment Mammography/[place] [phone] Ladi Mendosa MD [facility] HEMATOLOGY/[place] [address] 01/30/2024 11:30 AM EST Office Visit Dermatology at [address] [phone] Nilda Luis MD [facility] DR LIDIA [place] [address] 02/15/2024 9:30 AM [place] [address] Joanna Watts MD [place], [place] [phone] documented as of this encounter Visit Diagnoses Not on filedocumented in this encounter Care Teams Creative Manager Relationship Specialty Start Date End Date Trinh Caotes MD [facility] [address] [place] [id number] PCP - General 01/11/10 documented as of this encounter
--- OUTSIDE RECORDS SUMMARY | 2023-09-07 11:27 | XMS_ITS | Encounter Summary ---
Author Organization [facility] Address [facility] [place] [address] Care Team Providers Care Periodicals Clerk Name Role Phone Trinh Coates MD Primary Care Provider [phone] Encounter Details Date Type Department Care Team (Late st Contact Info) Description 07/09/2019 Ancillary Procedure [place]iology [place] [phone] Emily Choi MD [facility] [place] [address] Social History Tobacco Use Types Packs/Day Years [...] 01/22/2024 10:30 AM EST Appointment Mammography[place] [address] Ladi Mendosa MD [facility] HEMATOLOGY/[place] [address] 01/30/2024 11:30 AM EST Office Visit Dermatology at [facility] [address] [place] [address] Nilda Luis MD [facility] DR [place] [address] 02/15/2024 9:30 AM EST [place] [phone] [place] [address] documented as of this encounter Procedures Procedure Name Priority Date/Time Associated Diagnosis Comments FILM LIBRARY STORAGE ONLY CT CHEST Routine 07/09/2019 12:00 AM EDT documented in this encounter Results * Film Library- Storage Only CT Chest (07/09/2019 12:00 AM EDT) Narrative [facility] - 07/10/2019 6:51 AM EDT This exam is auto-finalizing. It's purpose is for storage only. Emily Choi MD IMG FILM LIBRARY ORD ERABLES [place], [place] documented in this encounter Visit Diagnoses Not on filedocumented in this encounter Care Teams Periodicals Clerk Relationship Specialty Start Date End Date Trinh Coates MD [address] [place] [address] PCP - General 01/11/10 documented as of this encounter
--- OUTSIDE RECORDS SUMMARY | 2023-09-07 11:27 | XMS_ITS | Encounter Summary ---
Author Organization [facility] Address [facility] [place] [address] Care Team Providers Care Turret Press Operator Name Role Phone Trinh Coates MD Primary Care Provider [phone] Encounter Details Date Type Department Care Team (Late Contact Info) Description 06/25/2019 Telephone Radiation Oncology at [address] [phone] Cosme Sawyer Social History Tobacco [...] Encounters Date Type Department Care Team (Late Contact Info) Description 01/22/2024 10:30 AM EST Appointment Mammography/[place] [address] [facility] HEMATOLOGY/[place] [address] 01/30/2024 11:30 AM EST Office Visit Dermatology at [facility] [address] [place] [phone] Nilda Luis MD [facility] [address] [place] [address] 02/15/2024 9:30 AM EST Appointment [place] [phone] [place] [address] documented as of this encounter Visit Diagnoses Not on filedocumented in this encounter Care Teams Turret Press Operator Relationship Specialty Start Date End Date Trinh Coates MD [facility] [address] [place] [address] PCP - General 01/11/10 documented as of this encounter
--- OUTSIDE RECORDS SUMMARY | 2023-09-07 11:27 | XMS_ITS | Encounter Summary ---
Author Organization [facility] [place] [address] Care Team Providers Care Public Health Registrar Name Role Phone Trinh Coates MD Primary Care Provider [phone] Reason for Visit * Reason Comments Follow Up Surgery left arm lymphedena Encounter Details Date Type Department Care Team (Late st Contact Info) Description 03/12/2019 9:20 AM EST Office [place] [address] Jolene Azevedo APRN [facility] [place] [address] Surgery follow-up Social History Tobacco Use Types [...] Progress Notes * Jolene Azevedo APRN - 03/12/2019 9:20 AM EST Plastic Surgery Follow Up Note Jolene Azevedo APRN Date of surgery: 10/18/18 Procedure(s): Lymphatic mapping, lymphevenous bypass (Nigr[place]) Complications: None reported Date of surgery: 12/16/17 [...] and closure. Debridement of umbilicus. Deflation of residential door unit installer volume, This leaves 450 cc in the left tissue residential door unit installer and 500 cc on the right side Date of surgery: 04/26/17 Procedure(s): Bilateral breast reconstruction with attempted SALVADOR flaps, eventual tissue residential door unit installer placement with [place] Artoura 600 cc expanders placed bilaterally and filled with 450 cc of methyleneblue impregnated saline.) Complications: right parietal and visceral pleural tear, arterial flap failure bilaterally HPI: Patient reports that she has been having episodes arm swelling and pain in her arm and shoulder, worsening throughout the day. Her symptoms suddenly worsened after a day of heavy activity including shoveling. She wears her compression sleeves at all times. By mid-morning she begins to experiencing severe pain and swelling, making the sleeves unbearably tight. She has been working with PT, and has begun using the pneumatic machine recommended. She used it once, last night, and did not find it helpful. Edema appears to be directly correlated to her activity level. Increased according to her activity level, which she has decreased. Examination: Patient is alert, conversant, comfortable, ambulating Right hand is neurovascularly intact. Edema in hand and arm. Impression: Wendy Sandoval is a 53 y.o. female who was seen today for follow- up after the above procedure. She has new worsening of symptoms that correlates with increased activity. Plan: Follow up 3-6 months or if there are concerns. Continue treatment for lymphedema. If shoulder pain persists after lymphedema improved, return to PCP. I, Destiny Mueller, have performed the documentation for this encounter [...] 01/22/2024 10:30 AM EST Appointment Mammography/[place] [address] Ladi Mendosa MD [facility] HEMATOLOGY/[place] [address] 01/30/2024 11:30 AM EST Office Visit Dermatology at [place] [address] [place] [phone] Nilda Luis MD [facility] [address] 02/15/2024 9:30 AM EST [place] [address] [place] [address] documented as of this encounter Visit Diagnoses Diagnosis Surgery follow-up Follow-up examination, following unspecified surgery documented in this encounter Care Teams Public Health Registrar Relationship Specialty Start Date End Date Trinh Coates MD [facility] [address] [place] [address] PCP - General 01/11/10 documented as of this encounter
--- OUTSIDE RECORDS SUMMARY | 2023-09-07 11:27 | XMS_ITS | Encounter Summary ---
Author Organization [facility] Address [facility] [place] [address] Care Team Providers Care Manager Economic Name Role Phone Trinh Coates MD Primary Care Provider [phone] Encounter Details Date Type Department Care Team (Late st Contact Info) Description 07/09/2019 12:05 AM EDT Ancillary Procedure [place] [phone] Emily Choi MD [facility] [place] [address] Social History Tobacco Use Types Packs/Day Years [...] 01/22/2024 10:30 AM EST Appointment Mammography[place] [phone] Ladi Mendosa MD [facility] HEMATOLOGY/[place] [address] 01/30/2024 11:30 AM EST Office Visit Dermatology at [facility] [address] [place] [address] Nilda Luis MD [facility] DR [address] [place] [address] 02/15/2024 9:30 AM EST [place] [address] [place] [address] documented as of this encounter Procedures Procedure Name Priority Date/Time Associated Diagnosis Comments FILM LIBRARY STORAGE ONLY NUCLEAR MEDICINE Routine 07/09/2019 12:05 AM EDT documented in this encounter Results * Film Library- Storage Only nuclear medicine (07/09/2019 12:05 AM EDT) Narrative [facility] - 07/10/2019 6:52 AM EDT This exam is auto-finalizing. It's purpose is for storage only. Emily Choi MD IMG FILM LIBRARY ORD ERABLES [place], [place] documented in this encounter Visit Diagnoses Not on filedocumented in this encounter Care Teams Manager Economic Relationship Specialty Start Date End Date Trinh Coates MD [address] [place] [address] PCP - General 01/11/10 documented as of this encounter
--- OUTSIDE RECORDS SUMMARY | 2023-09-07 11:27 | XMS_ITS | Encounter Summary ---
Author Organization [facility] Address [facility] [place] [address] Care Team Providers Care Program Architect Name Role Phone Trinh Coates MD Primary Care Provider [phone] Reason for Visit * Reason Comments Radiation Follow-up Encounter Details Date Type Department Care Team (Late st Contact Info) Description 06/30/2019 2:30 PM EDT Office Visit Radiation Oncology at [address] [phone] Emily Choi MD [facility] [place] [address] Hormone receptor positive malignant neoplasm [...] Sign Reading Time Taken Comments Blood Pressure 142/95 06/30/2019 2:48 PM EDT Pulse 63 06/30/2019 2:48 PM EDT Temperature - - Respiratory Rate 16 06/30/2019 2:48 PM EDT Oxygen Saturation 96% 06/30/2019 2:4 8 PM EDT Inhaled Oxygen Concentration - - Weight 84.2 kg (185 lb 9.6 oz) 06/30/19 20 2:48 PM EDT with shoes Height - - Body Mass Index 35.07 01/23/2019 1:34 PM EST documented in this encounter Patient Instructions * Patient Instructions* Emily Choi MD - 06/30/2019 2:30 PM EDT Bone scan recommended for evaluation of right upper arm pain. CT chest recommended for evaluation of upper outer left chest/left underarm tightness/discomfort. Someone will contact you to schedule bone scan & [facility] @ [facility]. Cr blood level needs to be drawn within [address]. We will talk about next step after bone scan & CT chest. documented in this encounter Progress Notes * Emily Choi MD - 06/30/2019 2:30 PM EDT Images from the original note were not included. CC: Sched'd fu s/p xrt completion. 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 She is taking anne, started after xrt completion; switched to arimidex for a while & then back to anne. 10/18/18 lymphovenous bypass L upper ext by Dr. Gimenez. 10/30/18 fu w/Rashaad Azevedo APRN Plastics, resume PT for lymphedema. ROS: Over the past few wks has noticed intermittent pain upper R arm/shoulder, for which she takes 400 mg ibuprofen up to several times/day. Also has noticed discomfort/tightness UOQ L reconstructed breast/low L axilla. Swelling of L upper ext decreased by 60% since lymphatic bypass by Dr. Gimenez.Lymphedema L upper ext stable, managed w/glove & sleeve. ROM arms around shoulders ok. Past Medical History: Diagnosis Date ??? [...] IR Drain Check/Change/Remove 11/20/2017 Marcos Dey MD [facility] INTER[facility] RAD ??? IR MEDIPORT REMOVAL 01/25/2018 IR Mediport Removal 01/25/2018 Scooby Muñoz APRN [facility] RAD ??? PRG EMG, LARYNX N/A 11/02/2015 FACIAL NERVE MONITORING, SETUP LARYNGEAL performed by Valentina Lucas MD at [facility] OR ??? PRO BREAST RECONSTRUC W FREE FLAP Bilateral 04/26/2017 @BREAST RECONSTRUCTION W/ FREE FLAP, SUSAN (WRVU 42.58) [facility] ??? PRO BREAST RECONSTRUC W FREE FLAP, W/O IMPLANT Bilateral 12/12/2017 @BREAST RECONSTRUCTION W/ LAT DORSI FLAP,W/O IMPLANT, SUSAN (WRVU 23.36) performed by Andre Gimenez MD at [facility] OR ??? PRO BREAST RECONSTRUC W TISS EXPANDR Bilateral 04/26/2017 BREAST RECONSTRUCTION, IMMEDIATE OR DELAYED, W/ TISSUE MILL ATTENDANT, INCLUDING SUBSEQUENT EXPANSION (WRVU 18.5) performed by Andre Gimenez MD at [facility] OR ? ? PRO DEBRIDEMENT SUBCUTANEOUS TISSUE 20 SQCM/< 06/22/2017 DEBRIDEMENT SKIN AND SUBCU, BREAST (WRVU 1.01) performed by Andre Gimenez MD at [facility] OR ??? PRO EXPLORE PARATHYROID GLANDS N/A 11/02/2015 PARATHYROIDECTOMY OR EXPLORATION OF PARATHYROID(S) performed by Valentina Lucas MD at [facility] OR ? ? PRO FULL THICK GRFT TRUNK <20 SQCM Bilateral 04/26/2017 FTSG, FREE, DIR CLOSE DONOR SITE, TRUNK, 20 SQ CM OR LESS (WRVU 9.15) performed by Andre Gimenez MD at [facility] OR ??? PRO INCISION OF LYMPH CHANNELS Left 10/18/2018 INCISION & DRAINAGE LYMPHOCELE (WRVU 6.81) performed by Andre Gimenez MD at [facility] OR ??? PRO IV INJ TO TEST BLOOD FLOW IN FLAP/GRAFT Left 10/18/2018 IV INJECTION, AGENT TO TEST VASC FLOW IN FLAP OR GRAFT, ENT (WRVU 1.95) performed by Andre Gimenez MD at [facility] OR ??? PRO MASTECTOMY, SIMPLE, COMPLETE Bilateral 04/26/2017 MASTECTOMY, SIMPLE, COMPLETE-SUSAN (WRVU 15.85) performed by Jolie Menendez MD at [facility] OR ??? PRO PARTIAL REMOVAL OF RIB Bilateral 04/26/2017 EXCISION OF RIB, PARTIAL (WRVU 7.26) performed by Andre Gimenez MD at [facility] OR ??? PRO REMOVE ARMPITS LYMPH NODES COMPLT Left 04/26/2017 LYMPHADENECTOMY, AXILLARY, COMPLETE (WRVU 13.87) performed by Jolie Menendez MD at [facility] OR ??? PRO REPLACE TISSUE MILL ATTENDANT Bilateral 12/12/2017 TISSUE MILL ATTENDANT REPLACEMENT, WITH PERMANENT PROSTHESIS, SUSAN (WRVU 8.01) performed by Andre Gimenez MD at [facility] OR ??? PRO REVISION RECONSTRUCTED BREAST Left 06/22/2017 REVISION OF RECONSTRUCTED BREAST (WRVU 10.41) performed by Andre Gimenez MD at [facility] OR ??? PRO REVISION RECONSTRUCTED BREAST Bilateral 12/12/2017 REVISION OFRECONSTRUCTED BREAST, SUSAN (WRVU 10.41) performed by Andre Gimenez MD at [facility] OR ??? PRO THYMECTOMY, TRANSCERVICAL N/A 11/02/2015 THYMECTOMY, TRANSCERVICAL APPROACH performed by Valentina Lucas MD at [facility] OR ??? SHOULDER SURGERY Left ??? UMBILICAL HERNIA REPAIR Your Medications Accurate as of June 30, 2019 3:32 PM. If you have any questions, ask your nurse or doctor. Continued medications, unchanged Dose Details acetaminophen 325 mg Tab Commonly known as: Tylenol Take 2 tablets by mouth every 4 hours as needed for Pain. 650 mg Refills: 0 anastrozole 1 mg Tab Commonly known as: Arimidex Take 1 tablet by mouth daily. Start week of Dec 16, 2018 (having stopped tamoxifen for 7-10 days). 1 mg Quantity: 90 tablet Refills: 3 atorvastatin 20 mg Tab Commonly known as: Lipitor Take 1 tablet by mouth daily. 1 tablet Refills: 0 * clobetasoL 0.05 % Crea Commonly known as: TEMOVATE Apply to affected areas on knees, elbows and hands twice daily for two week cycles as needed. Quantity: 60 g Refills: 3 * clobetasoL 0.05 % Soln Commonly known as: TEMOVATE Apply topically to scalp once daily as needed. Quantity: 25 mL Refills: 5 dilTIAZem 240 mg Cp24 Commonly known as: CARDIZEM CD Take 240 mg by mouth daily. [...] Refills: 0 potassium chloride 20 mEq Tbsr 2 tablets. 2 tablet Refills: 0 spironolactone 25 mg Tab [...] Quantity: 0.5 mL Refills: 5 Vitamin D-3 125 mcg (5,000 unit) Tab [...] well- developed and well-nourished. No distress. BP (!) 142/95 (Patient Position: Sitting) Pulse 63 Resp 16 Wt 84.2 kg (185 lb 9.6 oz) Comment: with shoes SpO2 96% BMI 35.07 kg/m?? HENT: Head: Normocephalic and atraumatic. Eyes: [...] edema (L arm & hand in compression sleeve). Lymphadenopathy: Head (right side): No submental, no [...] is normal. Judgment and thought contentnormal. A: Pain in upper R arm & UOQ L chest/low L axilla of unknown etiology. P: Bone scan. CT chest. Talk after imaging re next step. documented in this encounter Plan of Treatment Upcoming Encounters Date Type Department Care Team (Late st Contact Info) Description 01/22/2024 10:30 AM EST Appointment Mammography/[place] [phone] Ladi Mendosa MD [facility] HEMATOLOGY/[place] [address] 01/30/2024 11:30 AM EST Office Visit Dermatology at [address] [place] [phone] Nilda Luis MD [facility] DR [address] [place] [address] 02/15/2024 9:30 AM EST [place] [phone] [place] [address] documented as of this encounter Visit Diagnoses Diagnosis 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
--- OUTSIDE RECORDS SUMMARY | 2023-09-07 11:27 | XMS_ITS | Encounter Summary ---
Author Organization Formerly [facility] [place] [address] Care Team Providers Care Hydrotel Operator Name Role Phone Trinh Coates MD Primary Care Provider [phone] Reason for Visit * Reason Comments Follow-up fse Skin Lesion itchy scalp Encounter Details Date Type Department Care Team (Late st Contact Info) Description 03/04/2019 10:00 AM EST Office Visit Dermatology at [place] [address] [place] [address] Anderson Zhou MD [facility] [address] [place] [address] High risk medication use; Psoriasis vulgaris; Scalp pruritus; Brachioradial pruritus; Nevus Social History Tobacco Use Types Packs/Day Years [...] as of this encounter Progress Notes * Anderson Zhou - 03/04/2019 10:00 AM EST Images from the original note were not included. DERMATOLOGY - ESTABLISHED PATIENT FOLLOW-UP Date of service: 03/04/2019 Wendy Yannick Sandoval : 1965, 53 y.o. Chief Complaint: Chief Complaint Patient presents with ??? Follow-up fse ??? Skin Lesion itchy scalp HPI: Wendy Sandoval is a 53 y.o. female last seen by Dr. Luis on 01/07/2019. Ms. Sandoval returns today for Full skin exam and follow up on itchy scalp. Pt states scalp is much less itchy now, clobetasol seems to be helping. No other pressing concerns. Psoriasis seems to be under control only itchy once in a while. No other concerns. She has not noted any other new, growing, changing, bleeding, painful or otherwise symptomatic moles or other lesions. She has not noted any other changes in any preexisting lesions. Relevant Skin History: Skin cancer: No Skin disease: Psoriasis (since age 16), started Stelara 09/12/18; previous treatments: triamcinoloneointment, calcipotriene, clobetasol cream, MG217 ?? 09/08/2013 Left neck, punch biopsy: Atypical lentiginous junctional melanocytic proliferation, extending to the peripheral margin, and associated lentiginous compound nevus. Comment: There is a proliferation ofsingle and nested junctional melanocytes which is concerning because it is on actinically damaged skin. ??We do not see enough proliferation for the diagnosis of melanoma in situ, and there is a central nevus component. ??However, because the nature of the proliferation is not certain, re-excision is recommended to fully remove the lesion and prevent recurrence. - s/p WLE 10/10/13 ?? Other: - Nevi ?? Relevant Medical History: - History of breast cancer s/p chemo, radiation ?? Family Skin History: Melanoma: father had non melanoma skin cancer in his ears Skin disease: Mother has psoriasis ?? 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 ibuprofen (ADVIL;MOTRIN) 200 mg Tablet Take 200 mg by mouth every 6 hours as needed for Pain. ??? dilTIAZem (CARDIZEM CD) 240 mg Capsule, Sust. Release 24 hr Take 240 mg by mouth daily. ??? clobetasol (TEMOVATE) 0.05 % Solution Apply topically to scalp once daily as needed. 25 mL 5 ??? anastrozole (ARIMIDEX) 1 mg Tablet Take 1 tablet by mouth daily. Start week of Dec 16, 2018 (having stopped tamoxifen for 7-10 days). 90 tablet 3 ??? ustekinumab (STELARA) 45 mg/0.5 mL Syringe [...] potassium chloride 20 mEq Tablet Sustained Release 2 tablets. 0 ??? cholecalciferol, Vitamin D3, (VITAMIN D-3) [...] fluoxetine (PROZAC) 40 mg capsule daily. ??? TURMERIC ORAL Take by mouth daily. ??? clobetasol (TEMOVATE) 0.05 % Cream Apply to affected areas on knees, elbows and hands twice daily for two week cycles as needed. (Patient not taking: Reported on 03/04/2019) 60 g 3 No current facility-administered medications for this visit. Allergies: Allergies Allergen Reactions ??? Zoloft [Sertraline] PSORIASIS FLARE Review of Systems: - General: Feels well. - Skin: No other skin concerns. Examination: - Constitutional: Patient was alert, well-appearing and in no noticeable distress. - Skin: Skin examination of the scalp, face, ears, neck, back, chest, abdomen, right and left upperextremities, right and left lower extremities, hands, feet, and buttocks was normal with the exception of the findings listed below. Genitalia not examined. - Osman De Los Santos, VICENTEA was present and on standby during my examination. Diagnosis/Skin findings/Assessment/Plan: 1. Brachioradialis pruritus: On the right lateral forearm, scattered excoriations no primary findings appreciated. Discussed that etiology thought to be secondary to proximal neuropathy of the extremity versus extensive photodamage - Start OTC Capsaicin cream, Use 3-4 times a day x 1 week. - Can also try Sarna lotion topical to 3 times daily as needed for itch - Can also consider treatments including acupuncture, gabapentin - If no improvement, can consider referral to pain management 2. Benign Appearing Nevi- On the trunk and extremities multiple, 0.3-0.5cm, medium-brown, evenly-pigmented macules and papules. - Reassurance, discussed importance of ABCDE's and monthly self exams 3. Nevus rule out atypia- 3mm dark papule on the left chest - Joint decision made to pursue shave biopsy Procedure Shave Procedure Discussed with patient diagnostic options, including the risks and benefits of observation, empirictreatment, and biopsy, including but not limited to recurrence, cosmesis (scar, dyspigmentation, scar spread,keloid), pain, keloid/hypertrophic scar, bleeding, infection. Patient verbally understandsand elects biopsy. -Time Out Performed: Full Name, , and site(s) confirmed with patient -Site was prepped in sterile fashion with Alcohol. Anesthesia with 1% lidocaine + 1:100,0000 epinephrine. Lesion biopsied with shave technique using gila blade. -Hemostasis achieved with Drysol. <1ml blood loss. No complications. Specimen(s): Placed in formalin and sent to Pathology for histologic examination. Post-op care: Vaseline, Pressure Dressing 4. Psoriasis. Faint thin red plaque on the right lower leg - Sensitive Skin Care with moisturizers 2x daily; avoid drying soaps; stop all aggressive scrubbingof plaques - Restart Clobetasol 0.05% ointment to thick plaques BID as needed - Continue Stelara 45mg SQ q 12 weeks - Labs today: CBC, CMP ?? 5. Scalp Pruritis- clear on exam today - Continue clobetasol 0.05% solution RTC: In six months for follow-up The following photos were obtained with patient consent: Note initiated by RANDY Lorenzo. I, RANDY Lorenzo, have performed the documentation for this encounter in the presence of and acting as a scribe for Anderson Zhou MD. I performed the services which were documented by the scribe, and I agree with the accuracy of the documentation in this encounter. Anderson Zhou MD Reviewed and signed by: Anderson Zhou MD Resident in Dermatology [facility] Patient seen and evaluated with staff magneto repairer: Natasha Ascencio MD Section of Dermatology [facility] * Natasha Ascencio MD - 03/04/2019 10:00 AM EST I directly supervised Dr. Zhou during this office visit. Dr. Zhou presented the history and physical exam to me. I then saw and examined this patient with Dr. Zhou. We reviewed the history and pertinent details and I confirmed the physical findings. I agree with the details of the history andphysical exam as documented in Dr. Zhou's note. Natasha Ascencio MD Staff Physician documented in this encounter Plan of Treatment Upcoming Encounters Date Type Department Care Team (Late st Contact Info) Description 01/22/2024 10:30 AM EST Appointment Mammography[place] [address] Ladi Mendosa MD [facility] HEMATOLOGY/[place] [address] 01/30/2024 11:30 AM EST Office Visit Dermatology at [facility] [address] [place] [address] Nilda Luis MD [facility] [address] [place] [address] 02/15/2024 9:30 AM EST [place]ment [place] [id number] [place] [address] documented as of this encounter Procedures Procedure Name Priority Date/Time Associated Diagnosis Comments HEMOGRAM Routine 03/04/2019 10:31 AM EST High risk medication use DIFFERENTIAL, AUTOMATED Routine 03/04/2019 10:31 AM EST High risk medication use HC CBC,PLT & AUTO DIFF Routine 03/04/2019 10:31 AM EST High risk medication use HC VENIPUNCTURE Routine 03/04/2019 10:31 AM EST High risk medication use SPECIMEN TO PATHOLOGY Routine 03/04/2019 10:17 AM EST High risk medication use SURGICAL PATHOLOGY REPORT Routine 03/04/2019 10:10 AM EST documented in this encounter Results * (ABNORMAL) Differential, Automated (03/04/2019 10:31 AM EST) Neutrophils % 67.8 % [facility] Neutr Abs (ANC) 5.56 1.70 - 6.10 x10(3)/mc L [facility] Lymphocytes % 15.1 % [facility] Lymphocytes Abs 1.2 0.9 - 3.2 x10(3)/mc L [facility] Monocytes % 9.3 % [facility] Monocyte Abs 0.8 0.3 - 0.9 x10(3)/mc L [facility] Eosinophils % 5.9 % [facility] Eosinophils Abs 0.5(H) 0.0 - 0.4 x10(3)/mc L [facility] Basophils % 1.3 % [facility] Basophils Abs 0.1 0.0 - 0.1 x10(3)/mc L [facility] Immature Gran % 0.60 % [facility] Comment: Immature granulocytes(IG's)percentage and absolute count will include metamyelocytes, myelocytes, and promyelocytes. Blood smears from CBCs yielding IG's will be scanned manually for concordance. If this scan disagrees with the automated IG or if promyelocytes are noted, a manual differential will be performed. Nova Gran Abs 0.05(H) 0.00 - 0.04 x10(3)/mc L [facility] Blood specimen (specimen) 03/04/2019 10:31 AM EST 03/04/2019 12:46 PM EST Narrative Resulting Agency Comment Spec In Lab Anderson Zhou MD HEMATOLOGY ORDERABLE S Performing Organization Address City/State/[facility] Co de Phone Number [facility] [address] * (ABNORMAL) Hemogram (03/04/2019 10:31 AM EST) WBC 8.2 4.0 - 9.5 x10(3)/[facility] RBC 4.34 4.00 - 5.21 x10(6)/[facility] Hemoglobin 13.6 11.7 - 15.5 gm/dL [facility] Hematocrit 43.2 35.7 - 45.8 % [facility] MCV 99.5(H) 82.6 - 94.4 fL [facility] MCH 31.3 27.1 - 32.0 pg [facility] MCHC 31.5(L) 31.7 - 35.0 gm/dL [facility] Platelets 348 145 - 357 x10(3)/[facility] RDWSD 47.1(H) 37.0 - 46.0 fL [facility] RDWCV 12.7 11.5 - 14.1 % [facility] MPV 9.6 7.6 - 12.9 fL [facility] nRBC % Auto 0.0 % [facility] nRBC Abs Auto 0.000 0.000 - 0.000 x10(3)/mcL [facility] Blood specimen (specimen) 03/04/2019 10:31 AM EST 03/04/2019 12:46 PM EST Narrative Resulting Agency Comment Spec In Lab Anderson Zhou MD HEMATOLOGY ORDERABLE S [facility] [place] [address] * (ABNORMAL) Comprehensive metabolic panel (non-fasting) (03/04/2019 10:31 AM EST) Glucose Lvl 132 65 - 199 mg/dL [facility] Comment:Diabetes: >=200 mg/d L plus symptoms BUN 27(H) 8 - 18 mg/dL [facility] Creatinine 1.34(H) 0.70 - 1.20 mg/dL [facility] Sodium 142 135 - 145 mmol/L [facility] Potassium 4.8 3.5 - 5.0 mmol/L [facility] [...] 15 mmol/L [facility] Calcium 9.4 8.5 - 10.5 mg/dL [facility] Total Protein 6.9 6.1 - 8.0 gm/dL [facility] Albumin 4.2 3.2 - 5.2 gm/dL [facility] AST 17 0 - 30 unit/L [facility] ALT 18 0 - 30 unit/L [facility] Alk Phos 94 35 - 105 unit/L [facility] Total Bilirubin 0.3 0.2 - 1.3 mg/dL [facility] Estimated GFR 44(L) >=60 mL/min/1. 73 m?? [facility] Comment: The eGFR was calculated using the CKD-EPI equation. As with all creatinine based estimates of kidney function, eGFR values calculated with the CKD-EPI equation are not accurate in patients with acute kidney failure, extremes of body mass or the acutely ill. [email or web address] eGFR 52(L) >=60 mL/min/1. 73 m?? [facility] Comment: The eGFR was calculated using the CKD-EPI equation. As with all creatinine based estimates of kidney function, eGFR values calculated with the CKD-EPI equation are not accurate in patients with acute kidney failure, extremes of body mass or the acutely ill. [email or web address] Blood specimen (specimen) 03/04/2019 10:31 AM EST 03/04/2019 1:00 PM EST Narrative Resulting Agency Comment Spec In Lab Natasha Ascencio MD CHEMISTRY ORDERABLES Performing Organization Address [facility] Co de Phone Number [facility] [place] [address] * Specimen to Pathology (03/04/2019 10:17 AM EST) AP Specimen 03/04/2019 10:1 7 AM EST 03/04/2019 6:31 PM EST Narrative [facility] - 03/04/2019 6:31 PM EST Specimen requisition ordered. ??Separate Pathology report to follow Resulting Agency Comment Spec In Lab Natasha Ascencio MD PATHOLOGY/CYTOLOGY O RDERABLES Performing Organization Address [facility] Co de Phone Number [facility] [address] * Surgical Pathology Report (03/04/2019 10:10 AM EST) Surgical Pathology Report [id number] ? Location: [facility] The signing pathologist has (i) examined the relevant preparation(s) for the specimen(s) and (ii) rendered or confirmed the diagnosis(es). . 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 of Pathology, [place], [place] ADDITIONAL STUDIES Multiple step-leveled sections are examined. CLINICAL INFORMATION Specimen Submitted: A - Skin, left chest, shave biopsy (1) Clinical History and Diagnosis: Nevus rule out atypia, 3 mm dark papule SPECIMEN PROCESSING A - Labeled/Fixativ e: Patient demographics, formalin. Quantity/Size: ??Single, 0.7 x 0.5 by less than 0.1 cm. Tissue Description: Cordero-white skin ellipse with 0.3 x 0.2 dark brown macule. Sections/Proces sing: Inked, bisected and entirely submitted in 1 cassette labeled A1. ??MLL [facility] 03/04/2019 10:1 0 AM EST Anderson Zhou MD PATHOLOGY/CYTOLOGY O SHANITA [facility] [address] documented in this encounter Visit Diagnoses Diagnosis High risk medication use Encounter for long-term (current) use of other medications Psoriasis vulgaris Other psoriasis Scalp pruritus Unspecified pruritic disorder Brachioradial pruritus Nevus Benign neoplasm of skin, site unspecified documented in this encounter Care Teams Hydrotel Operator Relationship Specialty Start Date End Date Trinh Coates MD [address] [facility] [address] [place] [address] PCP - General 01/11/10 documented as of this encounter
--- OUTSIDE RECORDS SUMMARY | 2023-09-07 11:27 | XMS_ITS | Encounter Summary ---
Author Organization Formerly [facility] Address [facility] [place] [address] Care Team Providers Care Desulphuring Operator Name Role Phone Trinh Coates MD Primary Care Provider [phone] Reason for Visit * Consultation (Urgent) - Specialty Diagnoses / Procedures Referred By Contac t Referred To Contact Nephrology Diagnoses Essential (primary) hypertension Chronic kidney disease, stage 3 (moderate) HYPERTENSION, CHRONIC KIDNEY DISEASE STAGE 3 Trinh Coates MD [facility] [address] [place] [address] [facility] Nephrology [address] [place] [phone] Referral ID Status Reason Start Date Expiration Date V isits Requested Visits Authorized [id number] Consult, Test & Treat Connection Center PCP Updated and/or Approved 12/13/2018 12/13/2019 6 6 Encounter Details Date Type Department Care Team (Latest Contact Info) Description 01/23/2019 2:00 PM EST Office Visit Neph[place] [address] Zackery Dawson MD [facility] [place] [address] Hypertension, unspecified type Social History Tobacco Use [...] Sign Reading Time Taken Comments Blood Pressure 116/73 01/23/2019 1:34 PM EST Pulse 68 01/23/2019 1:34 PM EST Temperature - - Respiratory Rate - - Oxygen Saturation - - Inhaled Oxygen Concentration - - Weight 82.1 kg (181 lb) 01/23/2019 1:34 PM EST Height 154.9 cm (5' 1) 01/23/2019 1:34 PM EST Body Mass Index 34.2 01/23/2019 1:34 PM EST documented in this encounter Progress Notes * Giovanna Multani CMA - 01/23/2019 2:00 PM EST Per request Dr Dawson, 24 hour Blood Pressure monitor put on patient. Patient given instruction about monitor, and will call if has questions/problems. Patient given box with paid UPS label to returnmonitor via UPS for download of report from monitor. Patient verbalized understanding, and was in agreement with this plan. * Zackery Dawson MD - 01/23/2019 2:00 PM EST PATIENT: Wendy aSndoval : 1965 REASON FOR CONSULTATION: Creatinine fluctuation and hypertension HPI: 53-year-old female presents for evaluation of renal function fluctuation and hypertension. Patient establish with endocrinology and diagnosed with hyperaldosteronism. Per adrenal vein sampling apparently bilateral, and patient was placed on mineralocorticoid receptor blockade. Patient also has a history of breast cancer and remains on antiestrogen therapy. Assessment/Plan: #Creatinine elevation suspect likely CKD stage III CR 1.22 -> eGFR 47 per external labs in 12/07. Creatinine appears to fluctuate between around 1 and 1.5 mg/dL and what appears to be hemodynamic pattern. Dipstick 2+ for protein, spot proteins within our system demonstrate 0.5 to 1.3 g per spot dating back to 2014. Patient reports proteinuria has been present since episode of eclampsia during . Plan: Will send formal UA and measure degree of Proteinuria (microalbumin/UPC). Will consider conduct workup for secondary processes including HIV/Hep, C3/C4 and SPEP/SFLC. Patient is on losartan, diltiazem and Spironolactone, all noted to have anti-proteinuric properties Patient reports history of nephrolithiasis, and will consider doing work-up for this. Empirically recommended increase fluid intake up to 3 L daily #Hyperaldosteroism Reports significant history of hypokalemia, with level down to 1.9 mmol/L in combination with hypertension. Patient established with endocrinology and was told reportedly bilateral, via adrenal vein sampling. We do not have renin measured within our system. Patient is on spironolactone, and blood pressure and hypokalemia appears to be relatively well managed at this point in time. Knowing toxic effects of aldosterone overtime with regards to the heart in the kidney system may consider maximizing dose . Would continue potassium supplementation for the time being, also would continue to monitor magnesium and replete if necessary. Also with history of hyperparathyroidism #Hemodynamics Hypertension well controlled in clinic blood pressure 116/73 mmHg. Patient has home blood pressure cuff and we will calibrate. She is also agreeable to performing 24-hour blood pressure monitoring tofully understand patient's trend. Concern for potential hyperaldosteronism as above Antihypertensives: 25 mg spironolactone, diltiazem 240 mg losartan 100 mg. Patient appears to be tolerating this regimen at this time and blood pressure is well controlled. Will continue present management Unclear whether spironolactone Has any effect on anastrozole, and breast cancer risk. Clinic Follow-Up Plan: 2 months renal Social history: Patient works from home for [employer]. Denies tobacco/Illicit Drug Use Family History Denies known family History of Chronic Kidney Disease or potassium issues Past Medical History: Diagnosis Date ??? Fibrocystic [...] IR Drain Check/Change/Remove 11/20/2017 Marcos Dey MD [facility] ??? IR MEDIPORT REMOVAL 01/25/2018 IR Mediport Removal 01/25/2018 Scooby Muñoz Carlos Alberto, WOOD CASKET ASSEMBLER [facility] ??? PRG EMG, LARYNX N/A 11/02/2015 FACIAL NERVE MONITORING, SETUP LARYNGEAL performed by Valentina Lucas MD at [facility] OR ??? PRO BREAST RECONSTRUC W FREE FLAP Bilateral 04/26/2017 @BREAST RECONSTRUCTION W/ FREE FLAP, SUSAN (WRVU 42.58) performed by Andre Gimenez MD at [facility] [place] ??? PRO BREAST RECONSTRUC W FREE FLAP, W/O IMPLANT Bilateral 12/12/2017 @BREAST RECONSTRUCTION W/ LAT DORSI FLAP,W/O IMPLANT, SUSAN (WRVU 23.36) performed by Andre Gimenez MD at [facility] OR ??? PRO BREAST RECONSTRUC W TISS EXPANDR Bilateral 04/26/2017 BREAST RECONSTRUCTION, IMMEDIATE OR DELAYED, W/ TISSUE LINE MANAGER, INCLUDING SUBSEQUENT EXPANSION (WRVU 18.5) performed by Andre Gimenez MD at [facility] OR ? ? PRO DEBRIDEMENT SUBCUTANEOUS TISSUE 20 SQCM/< 06/22/2017 DEBRIDEMENT SKIN AND SUBCU, BREAST (WRVU 1.01) performed by Andre Gimenez MD at [facility] OR ??? PRO EXPLORE PARATHYROID GLANDS N/A 11/02/2015 PARATHYROIDECTOMY OR EXPLORATION OF PARATHYROID(S) performed by aVlentina Lucas MD at [facility] OR ? ? PRO FULL THICK GRFT TRUNK <20 SQCM Bilateral 04/26/2017 FTSG, FREE, DIR CLOSE DONOR SITE, TRUNK, 20 SQ CM OR LESS (WRVU 9.15) performed by Andre Gimenez MD at [facility] OR ??? PRO INCISION OF LYMPH CHANNELS Left 10/18/2018 INCISION & DRAINAGE LYMPHOCELE (WRVU 6.81) performed by Andre Gimenez MD at [facility] OR ??? PRO IV INJ TO TEST BLOOD FLOW IN FLAP/GRAFT Left 10/18/2018 IV INJECTION, AGENT TO TEST VASC FLOW IN FLAP OR GRAFT, ENT (WRVU 1.95) performed by Andre Gimenez MD at [facility] OR ??? PRO MASTECTOMY, SIMPLE, COMPLETE Bilateral 04/26/2017 MASTECTOMY, SIMPLE, COMPLETE-SUSAN (WRVU 15.85) performed by Jolie Menendez MD at [facility] OR ??? PRO PARTIAL REMOVAL OF RIB Bilateral 04/26/2017 EXCISION OF RIB, PARTIAL (WRVU 7.26) performed by Andre Gimenez MD at [facility] OR ??? PRO REMOVE ARMPITS LYMPH NODES COMPLT Left 04/26/2017 LYMPHADENECTOMY, AXILLARY, COMPLETE (WRVU 13.87) performed by Jolie Menendez MD at [facility] OR ??? PRO REPLACE TISSUE LINE MANAGER Bilateral 12/12/2017 TISSUE LINE MANAGER REPLACEMENT, WITH PERMANENT PROSTHESIS, SUSAN (WRVU 8.01) performed by Andre Gimenez MD at [facility] OR ??? PRO REVISE BREAST RECONSTRUCTION Left 06/22/2017 REVISION OF RECONSTRUCTED BREAST (WRVU 10.41) performed by Andre Gimenez MD at [facility] OR ??? PRO REVISE BREAST RECONSTRUCTION Bilateral 12/12/2017 REVISION OFRECONSTRUCTED BREAST, SUSAN (WRVU 10.41) performed by Andre Gimenez MD at [facility] OR ??? PRO THYMECTOMY, TRANSCERVICAL N/A 11/02/2015 THYMECTOMY, TRANSCERVICAL APPROACH performed by Valentina Lucas MD at [facility] OR ??? SHOULDER SURGERY Left ??? UMBILICAL [...] to Visit Medication Sig Dispense Refill ??? ibuprofen (ADVIL;MOTRIN) 200 mg Tablet Take 200 mg by mouth every 6 hours as needed for Pain. ??? dilTIAZem (CARDIZEM CD) 240 mg Capsule, Sust. Release 24 hr Take 240 mg by mouth daily. ??? TURMERIC ORAL Take by mouth [...] by mouth daily. 90 tablet 3 ??? [DISCONTINUED] amLODIPine (NORVASC) 10 mg Tablet Take 10 mg by mouth daily. ??? gabapentin (NEURONTIN) 300 mg Capsule Take [...] (PROZAC) 40 mg capsule daily. ??? [DISCONTINUED] doxycycline (VIBRAMYCIN) 100 mg Capsule Take 1 capsule by mouth twice daily (morning and evening) for 14 days. 28 capsule 0 No current facility-administered medications on file [...] Last value Temperature Heart Rate Heart Rate: 68 Blood Pressure BP: 116/73 Respiratory Rate SpO2 Appearance - Alert, Comfortable. Skin - No exanthem. HEENT - Sclera white. Mucous membranes moist. Chest:. Lungs clear to ausculatation w/o wheezes/ rhonchi/ crackles. Heart - S1 and S2 clear w/o murmur, gallop, or rub. JVP not elevated. Abd - Soft. + BS. No bruit. Non tender. Ext - . Warm. No cyanosis. No dependent edema. Neuro - No asterixis. STUDIES: Labs: CBC: Recent Labs 07/24/18 1614 07/12/18 0622 WBC 9.6* -- HGB 11.8 -- PLATELET 338 365* Chemistry: Recent Labs 07/24/18 1614 07/12/18 0622 NA 143 -- K 3.8 -- CL 102 -- CO2 27 -- BUN 29* -- CREATININE 1.27* 0.98 GLUCOSE 141 -- Recent Labs 07/24/18 1614 CALCIUM 9.1 LFT's: Recent Labs 07/24/18 1614 BILITOT 0.5 ALBUMIN 3.9 ALKPHOS 79 ALT 21 AST 21 Zackery Dawson MD, MPH Section of Nephrology #[id number] documented in this encounter Plan of Treatment Upcoming Encounters Date Type Department Care Team (Late st Contact Info) Description 01/22/2024 10:30 AM EST Appointment Mammography/[place] [address] Ladi Mendosa MD [facility] DR HEMATOLOGY/[place] [address] 01/30/2024 11:30 AM EST Office Visit Dermatology at [facility] [address] [place] [address] Nilda Luis MD [facility] [address] [address] 02/15/2024 9:30 AM EST Appointment [place] [phone] [place] [address] documented as of this encounter Procedures Procedure Name Priority Date/Time Associated Diagnosis Comments HC PROTEIN, QUANTITATIVE, URINE Routine 01/23/2019 2:00 PM EST Hypertension, unspecified type HC MICROALBUMIN, URINE Routine 01/23/2019 2:00 PM EST Hypertension, unspecified type HC UA W/OUT MICROSCOPIC Routine 01/23/2019 2:00 PM EST Hypertension, unspecified type documented in this encounter Results * (ABNORMAL) Basic Metabolic Panel (non-fasting) (09/19/2019 10:05 AM EDT) Glucose Lvl 96 65 - 199 mg/dL [facility] Comment:Diabetes: >=200 mg/d L plus symptoms BUN 37(H) 8 - 18 mg/dL [facility] Creatinine 1.65(H) 0.70 - 1.20 mg/dL [facility] Sodium 141 135 - 145 mmol/L [facility] Potassium 4.9 3.5 - 5.0 mmol/L [facility] Anion Gap 12 5 - 15 mmol/L [facility] Calcium 9.3 8.5 - 10.5 mg/dL [facility] Estimated GFR 34(L) >=60 mL/min/1. 73 m?? [facility] Comment: The eGFR was calculated using the CKD-EPI equation. As with all creatinine based estimates of kidney function, eGFR values calculated with the CKD-EPI equation are not accurate in patients with acute kidney failure, extremes of body mass or the acutely ill. http://[employer] eGFR 40(L) >=60 mL/min/1. 73 m?? [facility] Comment: The eGFR was calculated using the CKD-EPI equation. As with all creatinine based estimates of kidney function, eGFR values calculated with the CKD-EPI equation are not accurate in patients with acute kidney failure, extremes of body mass or the acutely ill. http://[employer]/[facility] Blood specimen (specimen) 09/19/2019 10:05 AM EDT 09/19/2019 10:20 AM EDT Narrative Resulting Agency Comment Spec In Lab Zackery Dawson MD CHEMISTRY ORDERABLES [facility] [place] [address] * (ABNORMAL) U Albumin/Cre Ratio (01/23/2019 2:00 PM EST) Alb/Cr Ratio, Random 318(H) 0 - 29 mcg/mg Cr [facility] Comment: Reference Ranges: <30 mcg/mg: Normal [...] 2, 357? 362 U Albumin Conc, Random 429.8 mg/L [facility] U Creatinine 135 mg/dL [facility] Urine specimen (specimen) 01/23/2019 2:00 PM EST 01/23/2019 3:57 PM EST Narrative Resulting Agency Comment Spec In Lab Zackery Dawson MD URINE ORDERABLES Performing Organization Address [facility] de Phone Number [facility] [place] [address] * (ABNORMAL) Protein/Creatinine Ratio, urine (01/23/2019 2:00 PM EST) U Creatinine 135 mg/dL [facility] U Protein Ran 64(H) 0 - 12 mg/dL [facility] Prot/Cre Ratio 0.5 ratio [facility] Urine specimen (specimen) 01/23/2019 2:00 PM EST 01/23/2019 3:57 PM EST Narrative Resulting Agency Comment Spec In Lab Zackery Dawson MD URINE ORDERABLES Performing Organization Address [facility] Co de Phone Number [facility] [place] [address] * (ABNORMAL) Urinalysis without microscopic (01/23/2019 2:00 PM EST) Glucose UA Negative Negative mg/dL [facility] Protein UA 100(A) Negative mg/dL [facility] Bilirubin UA Negative Negative mg/dL [facility] Comment: Clinical correlation required for positive Urine Bilirubin results as false positive may occur with some drugs and drug related products. If a false positive is suspected a serum total bilirubin should be considered if clinically indicated. Urobilinogen UA Normal Normal mg/dL [facility] pH UA 5.0 5.0 - 8.0 [facility] Blood UA Negative Negative mg/dL [facility] Ketones UA Negative Negative mg/dL [facility] Nitrite UA Negative Negative [facility] Leukocytes UA Negative Negative mcL MAR Y [facility] Appearance UA Cloudy Clear [facility] Spec Bowie UA 1.019 1.002 - 1.030 [facility] Color UA Yellow Yellow [facility] Urine specimen (specimen) 01/23/2019 2:00 PM EST 01/23/2019 3:57 PM EST Narrative Resulting Agency Comment Spec In Lab Zackery Dawson MD URINE ORDERABLES Performing Organization Address City/State/[facility] Co de Phone Number [facility] [place] [address] documented in this encounter Visit Diagnoses Diagnosis Hypertension, unspecified type documented in this encounter Care Teams Desulphuring Operator Relationship Specialty Start Date End Date Trinh Coates MD [address] [place] [address] PCP - General 01/11/10 documented as of this encounter
--- OUTSIDE RECORDS SUMMARY | 2023-09-07 11:27 | XMS_ITS | Encounter Summary ---
Author Organization Formerly [facility] [place] [address] Care Team Providers Care Ironworker Foreman Name Role Phone Trinh Coates MD Primary Care Provider [phone] Encounter Details Date Type Department Care Team (Latest Contact Info) Description 12/06/2018 10:54 AM EDT - 12/06/2018 11:59 PM EDT Hospital Encounter Hematology [place] [address] Malignant neoplasm of upper-outer quadrant of left [...] DR tablet 1 CAP daily 03/27/2014 024 anastrozole (ARIMIDEX) 1 mg TabletIndications:Malig nant neoplasm of upper-outer quadrant [...] Take 10 mg by mouth daily. 01/23/2019 gabapentin (NEURONTIN) 300 mg CapsuleIndications:Elaine gnant neoplasm [...] 01/22/2024 10:30 AM EST Appointment Mammography/[place] [address] Ladi Mendosa MD [facility] HEMATOLOGY/[place] [address] 01/30/2024 11:30 AM EST Office Visit Dermatology at [facility] [address] [place] [phone] Nilda Luis MD [facility] DR LID[address] [place] [address] 02/15/2024 9:30 AM EST Appointment [place] [address] [place] [address] documented as of this encounter Procedures Procedure Name Priority Date/Time Associated Diagnosis Comments HC VENIPUNCTURE Routine 12/06/2018 11:12 AM EDT Malignant neoplasm of upper-outer quadrant of left breast in female, estrogen receptor positive HC FSH ASSAY, SERUM Routine 12/06/2018 1 1:12 AM EDT Malignant neoplasm of upper-outer quadrant of left breast in female, estrogen receptor positive documented in this encounter Results * Follicle Stimulating Hormone (12/06/2018 11:12 AM EDT) FSH 34.3 mlU/ML [facility] Comment: Reference Ranges: Females: Follicular: ? 3.5-12.5 mIU/mL Ovulation: ?4.7-21.5 mIU/mL Luteal: ? 1.7-7.7 mIU/mL Postmenopausal: 25.8-134.8 mIU/mL Blood specimen (specimen) 12/06/2018 11:12 AM EDT 12/06/2018 11:35 AM EDT Narrative Resulting Agency Comment Spec In Lab Josias Barnett MD CHEMISTRY ORDERABLES Performing Organization Address [facility] de Phone Number [facility] [place] [address] * Estradiol (12/06/2018 11:12 AM EDT) Estradiol <5 pg/mL [facility] Comment: Reference ranges: Males: Adult: ? 11 to 43 pg/mL Females: Non- females: ?Follicular: ??12-233 pg/mL ?Ovulation: ?? 41-398 pg/mL ?Luteal: ?22-341 pg/mL ?Postmenopausal: ?? <5 -138 pg/mL females: ?1st trimester: ??154-3243 pg/mL ?2nd trimester: ??1561-59026 pg/mL ?3rd trimester: ??8525- >51352 pg/mL Blood specimen (specimen) 12/06/2018 11:12 AM EDT 12/06/2018 11:35 AM EDT Narrative Resulting Agency Comment Spec In Lab Josias Barnett MD CHEMISTRY ORDERABLES Performing Organization Address [facility] Co de Phone Number [facility] [place] [address] documented in this encounter Visit Diagnoses Diagnosis Malignant neoplasm of upper-outer quadrant of left breast in female, estrogen receptor positive documented in this encounter Care Teams Ironworker Foreman Relationship Specialty Start Date End Date Trinh Coates MD [address] [place] [address] PCP - General 01/11/10 documented as of this encounter
--- OUTSIDE RECORDS SUMMARY | 2023-09-07 11:27 | XMS_ITS | Encounter Summary ---
Author Organization [facility] Address [facility] [place] [address] Care Team Providers Care Manager Star Name Role Phone Trinh Coates MD Primary Care Provider [phone] Reason for Referral * Consultation (Routine) - Closed Specialty Diagnoses / Procedures Referred By Diamante marin Referred To Contact Orthopaedic Surgery Diagnoses Osteoarthritis of multiple joints, unspecified osteoarthritis type Emily Choi MD [facility] [place] [address] Referral ID Status Reason Start Date Expiration Date V isits Requested Visits Authorized [id number] Closed Consult, Test & Treat 07/11/2019 01/07/2020 1 1 Reason for Visit * Reason Onset Date Comments Other 07/11/2019 Encounter Details Date Type Department Care Team (Late st Contact Info) Description 07/11/2019 Telephone [place] [address] Emily Choi MD [facility] [place] [address] Other Social History Tobacco Use Types Packs/Day Years [...] encounter Miscellaneous Notes * Telephone Encounter - Emily Choi MD - 07/11/2019 2:16 PM EDT I called Wendy to discuss result of 07/09/19 bone scan & CT chest. Bone scan showed increased uptake in feet, hands & shoulders, likely from degenerative changes; also increased uptake in C spine which may be degenerative; plain xray C spine rec'd for further eval. CT chest showed L nephrolithiasis (she's aware of), cholelithiasis (she's not been aware of) & cyst in L kidney (not been aware of). She continues to be bothered by discomfort in feet & R shoulder. She would like to proceed w/plain xray C spine & R shoulder. She also would like to see an Orthopod for help w/thearthritic pain. Will refer her to Ortho group ([facility]) in [facility]. I also advised her tocontact Dr. Coates for help w/managing the arthritic pain. Will speak w/her after plain xray C spine& R shoulder result available. Rtc 6 mos. Cc: Dr. Coates documented in this encounter Plan of Treatment Upcoming Encounters Date Type Department Care Team (Late st Contact Info) Description 01/22/2024 10:30 AM EST Appointment Mammography/[place] [address] Ladi Mendosa MD [facility] HEMATOLOGY/[place] [address] 01/30/2024 11:30 AM EST Office Visit Dermatology at [facility] [address] [place] [address] Nilda Luis MD [facility] DR LID[address] [place] [address] 02/15/2024 9:30 AM [place] [address] [place] [address] Scheduled Referrals Name Type Priority Associated Diagnoses Orde r Schedule Referral to Orthopaedics Outpatient Referral Routine Osteoarthritis of multiple joints, unspecified osteoarthritis type Ordered: 07/11/2019 documented as of this encounter Visit Diagnoses Diagnosis Hormone receptor positive malignant neoplasm of left breast Osteoarthritis of multiple joints, unspecified osteoarthritis type documented in this encounter Care Teams Manager Star Relationship Specialty Start Date End Date Trinh Coates MD [facility] [address] [facility] [address] [place] [address] PCP - General 01/11/10 documented as of this encounter
--- OUTSIDE RECORDS SUMMARY | 2023-09-07 11:27 | XMS_ITS | Encounter Summary ---
Author Organization [facility] Address [facility] [place] [address] Care Team Providers Care Grain Elevator Operator Name Role Phone Trinh Coates MD Primary Care Provider [phone] Reason for Visit * Auth/Cert Specialty Diagnoses [...] Expiration Date Visits Re quested Visits Authorized [id number] 1 1 Encounter Details Date Type Department Care Team (Latest Contact Info) Description 10/18/2018 1:05 PM EDT - 10/18/2018 8:57 PM EDT Hospital Encounter [place] [phone] Mali Lakhani MD [facility] [place] [address] S/P breast reconstruction, bilateral Discharge Disposition: Home Social History Tobacco Use [...] Sign Reading Time Taken Comments Blood Pressure 127/86 10/18/2018 8:15 PM EDT Pulse 97 10/18/2018 7:04 PM EDT Temperature 37.5 ??C (99.5 ??F) 10/18/2018 7:04 PM ED T Respiratory Rate 16 10/18/2018 7:04 PM EDT Oxygen Saturation 96% 10/18/2018 8:15 PM EDT Inhaled Oxygen Concentration - - [...] office hours: Sunday - Sunday 8am-5pm call [phone]. On weekends or after hours call [phone] and ask the cyanide furnace operator to page the plastic surgery resident production control expediter. MEDICATIONS: You may resume your home medications. CONTACT INFORMATION: During office hours: Sunday through Sunday 8 am to 5 pm Call [phone] On weekends or after hours: Call [phone] and ask the cyanide furnace operator to page the Plastic Surgery Resident production control expediter. NEXT STEPS: You will have an appointment [...] 10/18/2018 2:17 PM EDT Patient Name: Wendy Sanodval Patient Age: 53 y.o. Birthdate: 1965 Admit [...] IR Mediport Removal 01/25/2018 Scooby Muñoz APRN [facility] INTERVENTIONL RAD ??? PRG EMG, LARYNX N/A 11/02/2015 FACIAL NERVE MONITORING, SETUP LARYNGEAL performed by Valentina Lucas MD at [facility] OR ??? PRO BREAST RECONSTRUC W FREE FLAP Bilateral 04/26/2017 @BREAST RECONSTRUCTION W/ FREE FLAP, SUSAN (WRVU 42.58) performed by Mali Lakhani MD at [facility] [place] ??? PRO BREAST RECONSTRUC W FREE FLAP, W/O IMPLANT Bilateral 12/12/2017 @BREAST RECONSTRUCTION W/ LAT DORSI FLAP,W/O IMPLANT, SUSAN (WRVU 23.36) performed by Mali Lakhani MD at [facility] OR ??? PRO BREAST RECONSTRUC W TISS EXPANDR Bilateral 04/26/2017 BREAST RECONSTRUCTION, IMMEDIATE OR DELAYED, W/ TISSUE MAXILLOFACIAL PROSTHODONTIST, INCLUDING SUBSEQUENT EXPANSION (WRVU 18.5) performed by Mali Lakhani MD at [facility] OR ? ? PRO DEBRIDEMENT SUBCUTANEOUS TISSUE 20 SQCM/< 06/22/2017 DEBRIDEMENT SKIN AND SUBCU, BREAST (WRVU 1.01) performed by Mali Lakhani MD at [facility] OR ??? PRO EXPLORE PARATHYROID GLANDS N/A 11/02/2015 PARATHYROIDECTOMY OR EXPLORATION OF PARATHYROID(S) performed by Valentina Lucas MD at [facility] OR ? ? PRO FULL THICK GRFT TRUNK <20 SQCM Bilateral 04/26/2017 FTSG, FREE, DIR CLOSE DONOR SITE, TRUNK, 20 SQ CM OR LESS (WRVU 9.15) performed by Mali Lakhani MD at [facility] OR ??? PRO MASTECTOMY, SIMPLE, COMPLETE Bilateral 04/26/2017 MASTECTOMY, SIMPLE, COMPLETE-SUSAN (WRVU 15.85) performed by Jolie Menendez MD at [facility] OR ??? PRO PARTIAL REMOVAL OF RIB Bilateral 04/26/2017 EXCISION OF RIB, PARTIAL (WRVU 7.26) performed by Mali Lakhani MD at [facility] OR ??? PRO REMOVE ARMPITS LYMPH NODES COMPLT Left 04/26/2017 LYMPHADENECTOMY, AXILLARY, COMPLETE (WRVU 13.87) performed by Jolie Menendez MD at [facility] OR ??? PRO REPLACE TISSUE MAXILLOFACIAL PROSTHODONTIST Bilateral 12/12/2017 TISSUE MAXILLOFACIAL PROSTHODONTIST REPLACEMENT, WITH PERMANENT PROSTHESIS, SUSAN (WRVU 8.01) performed by Mlai Lakhani MD at [facility] OR ??? PRO REVISE BREAST RECONSTRUCTION Left 06/22/2017 REVISION OF RECONSTRUCTED BREAST (WRVU 10.41) performed by Mali Lakhani MD at [facility] ??? PRO REVISE BREAST RECONSTRUCTION Bilateral 12/12/2017 REVISION OFRECONSTRUCTED BREAST, SUSAN (WRVU 10.41) performed by Mali Lakhani MD at [facility] OR ??? PRO THYMECTOMY, TRANSCERVICAL N/A 11/02/2015 THYMECTOMY, TRANSCERVICAL APPROACH performed by Valentina Lucas MD at [facility] OR ??? SHOULDER SURGERY Left ??? UMBILICAL [...] file Gets together: Not on file Attends muslim service: Not on file Active member of [...] Lakhani MD - 10/18/2018 8:57 PM EDT [facility] Operative Note Patient Name: Wendy Sandoval : [id number] MR#: [id number] Case Date: 10/18/2018 Surgeon: Surgeon(s) and Role: [...] began by performing lymphatic imaging utilizing the Lopoly imaging system. Small aliquots of indocyanine green [...] 01/22/2024 10:30 AM EST Appointment Mammography/[place] [address] Ladi Mendosa MD [facility] HEMATOLOGY/[place] [address] 01/30/2024 11:30 AM EST Office Visit Dermatology at [facility] [address] [place] [address] Nilda Luis MD [facility] [address] [place] [address] 02/15/2024 9:30 AM EST [place] [phone] [place] [address] documented as of this encounter Procedures Procedure Name Priority Date/Time Associated Diagnosis Comments Iv Inj To Test Blood Flow In Flap/Graft (51942) Yes 10/18/2018 3:43 PM EDT S/P breast reconstruction, bilateral Incision Of Lymph Channels (42230) Yes 10/18/2018 3:43 PM EDT S/P breast [...] Given 10/18/2018 1:55 PM EDT 1,000 mg oxyCODONE (ROXICODONE) immediate release tablet 5 mg [...] Routine 1355 (Given - Provid er: Natalya Murillo, JENNYFER)0 (Given - Provider: Jasmin Wilson RN) bacitracin [...] on Sun10/18/18 at 1916, Until Sun10/18/18 at 205, Nausea, May repeat 5 mg once in 30 minutes. If multiple antiemetics ordered, use ondansetron first and if ineffective use prochlorperazine second and if ineffective use promethazine, PACU Recovery, Routine 2036 (Given - Provid er: Jasmin Wilson RN) documented in this encounter Care Teams Grain Elevator Operator Relationship Specialty Start Date End Date Trinh Coates MD [address] [facility] [address] [place] [address] PCP - General 01/11/10 documented as of this encounter
--- OUTSIDE RECORDS SUMMARY | 2023-09-07 11:27 | XMS_ITS | Encounter Summary ---
Author Organization [facility] Address [facility] [place] [address] Care Team Providers Care Blueprint Reader Name Role Phone Trinh Coates MD Primary Care Provider [phone] Reason for Visit * Reason Comments Psoriasis Scalp pruritus Encounter Details Date Type Department Care Team (Late st Contact Info) Description 01/07/2019 9:15 AM EST Office Visit Dermatology at [facility] [address] [place] [address] Nilda Luis MD [facility] [address] Folliculitis; Psoriasis Social History Tobacco Use Types Packs/Day [...] Progress Notes * Nilda Luis MD - 01/07/2019 9:15 AM EST DERMATOLOGY ESTABLISHED PATIENT CLINIC NOTE Date of service: 01/07/2019 Wendy Sandoval : 1965 Provider: Nilda Luis MD Chief Complaint Patient presents with ??? Psoriasis Scalp pruritus SKIN HX: Skin cancer: No Skin disease: Psoriasis (since age 16), started Stelara 09/12/18; previous treatments: triamcinoloneointment, calcipotriene, clobetasol cream, MG217 09/08/2013 Left neck, punch biopsy: Atypical lentiginous [...] and prevent recurrence. 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 female, established patient, new to me, last seen by Dr. Lara on 09/12/18. Here today for a focused exam of the scalp. Patient continues Stelara (most recent injection was 01/05/19) for psoriasis and is scheduled for a 6-month follow up and labs with Dr. Lara on 03/11/09. Today patient complains of burning sensation, scattered bumps, and overall pruritus of scalp, which she has not treated with topicals. She first noticed a few pimple-like lesions on her scalp when her hair started growing back after chemotherapy. MEDS: Current Outpatient Medications Medication Sig Dispense Refill ??? anastrozole (ARIMIDEX) 1 mg Tablet Take [...] by mouth daily. 90 tablet 3 ??? amLODIPine (NORVASC) 10 [...] fluoxetine (PROZAC) 40 mg capsule daily. ??? clobetasol (TEMOVATE) 0.05 % Cream Apply to affected areas on knees, elbows and hands twice daily for two week cycles as needed. (Patient not taking: Reported on 01/07/2019) 60 g 3 No current facility-administered medications for this visit. ADR: Allergies Allergen Reactions ??? Zoloft [Sertraline] PSORIASIS FLARE ROS: General: feeling well Skin: denies other skin complaints EXAM: General: NAD, pleasant, cooperative Skin: A focused skin examination of the scalp, significant for??the following: Significant Skin Findings: A. Scalp: Scattered heme crusted papules on the occipital scalp in background of Thin scaly plaques/psoriasis. Rare pustule on the scalp. Few heme crusted papules on the central chest. ASSESSMENT/PLAN: A. Folliculitis in Background of Psoriasis - Start Rx: doxycycline 100 mg PO BID x 14 days. Counseled side effects (GI upset, esophagitis, photosensitivity, possibility of vaginal yeast infection) and advised taking after eating bland foods, with a full glass of water and to avoid laying down for 30 minutes. Noted interaction with calcium and iron. - Start Rx: clobetasol solution: Apply topically to the scalp once daily as needed. Follow up: RTC in 3-4 weeks for a follow up of the above, sooner if needed. Patient scheduled priorto exiting. Instructed patient to call with questions or concerns. I am documenting this encounter acting as the scribe for and in the presence of Dr. Luis: RANDY Sahni and Denisha Kwan I performed the above scribed service and agree with the accuracy of the documentation in this encounter. Nilda Luis MD Fire Technology Instructor of Dermatology Department of Surgery [facility] documented in this encounter Plan of Treatment Upcoming Encounters Date Type Department Care Team (Late st Contact Info) Description 01/22/2024 10:30 AM EST Appointment Mammography/DXA at [place] [phone] Ladi Mendosa MD [facility] DR HEMATOLOGY/[place] [address] 01/30/2024 11:30 AM EST Office Visit Dermatology at [address] [address] Nilda Luis MD [facility] DR L[address] [place] [address] 02/15/2024 9:30 AM EST [place] [address] [place] [address] documented as of this encounter Visit Diagnoses Diagnosis Folliculitis Other specified disease of hair and hair follicles Psoriasis Other psoriasis documented in this encounter Care Teams Blueprint Reader Relationship Specialty Start Date End Date Trinh Coates MD [address] [place] [address] PCP - General 01/11/10 documented as of this encounter
--- OUTSIDE RECORDS SUMMARY | 2023-09-07 11:27 | XMS_ITS | Encounter Summary ---
Author Organization [place] [address] Care Team Providers Care Carnival Worker Name Role Phone Trinh Coates MD Primary Care Provider [phone] Reason for Visit * Reason Comments Medication Management Encounter Details Date Type Department Care Team (Late st Contact Info) Description 09/12/2018 Specialty [place] [phone] Trudi Vidal RPH Social History Tobacco Use Types Packs/Day Years [...] as of this encounter Progress Notes * Trudi Vidal RPH - 09/12/2018 9:47 AM EDT Patient Injection/Medication Education []Methotrexate []Orencia (abatacept) [] Simponi (golimumab) []Enbrel(etanercept) [] Cimzia (certolizumab) [x] Stelara (ustekinumab) []Humira(adalimumab) []Actemra (tocilizumab) [] Benlysta [] Yes No Not Required Date & Comments Injection Form PEN [] [x] SYRINGE/VIAL [x] [] TEACHING METHODS Demonstration - Hands On [x] [] Video/Talking Devices [] [x] Verbal/Written Material [] [x] EDUCATION Proper Storage/Disposal [x] [] Administration of Medication [x] [] Drug Monitoring (Labs needed) [x] [] Common Side effects [x] [] When to hold medication Illness/Infection/Surgery/Live Vaccines [x] [] OUTCOMES/GOALS Patient verbalizes Understanding of why they are taking Injectable medication [x] [] Patient was able to safely and correctly inject medication [] [x] Patient not able to self-inject and Designated person performs injection safely and correctly [x] [] Her gave her the injection in the back her upper, right arm. Does Patient/Designated person need Remedial training [x] [] Remedial Training Provided [] [x] Miscellaneous Discuss PA process [] [] [x] Offer Individual Medication Services/ Offer Copay Cards [] [] [x] Patient presents to clinic for a teaching appointment for Kami. We briefly went over Kami's medication profile, going over side effects, precautions and warnings and dosing schedule. I recommended calling [facility] about a week before her next dose to coordinate delivery for there next dose, emphasizing change in delivery from the office to her home address. We wend over proper storage,administration and disposal. Patient and her confirms understanding. Her gave the injection into her the back of her right upper arm. No injection reactions were noted and patient appeared in no apparent distress. Patient was given our contact information should she have any questions or concerns going forward. Lot number [id number] Exp: 09/2020 documented in this encounter Plan of Treatment Upcoming Encounters Date Type Department Care Team (Late st Contact Info) Description 01/22/2024 10:30 AM EST Appointment Mammography/DXA at [facility] [place] [phone] Ladi Mendosa MD [facility] HEMATOLOGY/[place] [address] 01/30/2024 11:30 AM EST Office Visit Dermatology at [facility] [address] [place] [address] Nilda Luis MD [facility] [address] [place] [address] 02/15/2024 9:30 AM EST [place] [phone] [place] [address] documented as of this encounter Visit Diagnoses Not on filedocumented in this encounter Care Teams Carnival Worker Relationship Specialty Start Date End Date Trinh Coates MD [facility] [address] [address] PCP - General 01/11/10 documented as of this encounter
--- OUTSIDE RECORDS SUMMARY | 2023-09-07 11:27 | XMS_ITS | Encounter Summary ---
Author Organization [facility] [place] [address] Care Team Providers Care Chemical Process Equipment Operator Name Role Phone Trinh Coates MD Primary Care Provider [phone] Encounter Details Date Type Department Care Team (Late st Contact Info) Description 04/07/2019 Telephone [place]phrology [place] [address] Alejandra Garcia Social History Tobacco Use Types Packs/Day Years [...] encounter Miscellaneous Notes * Telephone Encounter - Alejandra Garcia - 04/07/2019 4:18 PM EST LM for pt to call an glen. W/Dr. Dawson documented in this encounter Plan of Treatment Upcoming Encounters Date Type Department Care Team (Late st Contact Info) Description 01/22/2024 10:30 AM EST Appointment Mammography/[place] [address] Ladi Mendosa MD [facility] DR [place]EMATOLOGY/[place] [address] 01/30/2024 11:30 AM EST Office Visit Dermatology at [facility] [address] [place] [address] Nilda Luis MD [facility] [address] [place] [address] 02/15/2024 9:30 AM EST Appointment [place] [address] [place] [address] documented as of this encounter Visit Diagnoses Not on filedocumented in this encounter Care Teams Chemical Process Equipment Operator Relationship Specialty Start Date End Date Trinh Coates MD [facility] [address] [facility] [address] [place] [address] PCP - General 01/11/10 documented as of this encounter
--- OUTSIDE RECORDS SUMMARY | 2023-09-07 11:28 | XMS_ITS | Encounter Summary ---
Author Organization [facility] Address [facility] [place] [address] Care Team Providers Care Tow Motor Mechanic Name Role Phone Trinh Coates MD Primary Care Provider [phone] Encounter Details Date Type Department Care Team (Late st Contact Info) Description 05/15/2018 Orders [place] [phone] Lakeisha Reza MD [facility] [place] [address] Hypokalemia; Hypertension, unspecified type Social History Tobacco Use [...] 10:30 AM EST Appointment Mammography/[place] [phone] Ladi Mendosa MD [facility] HEMATOLOGY/[place] [address] 01/30/2024 11:30 AM EST Office Visit Dermatology at [address] [place] [address] Nilda Luis MD [facility] [address] [address] 02/15/2024 9:30 AM EST Appointment [place] [phone] [place] [address] documented as of this encounter Visit Diagnoses Diagnosis Hypokalemia Hypopotassemia Hypertension, unspecified type documented in this encounter Care Teams Tow Motor Mechanic Relationship Specialty Start Date End Date Trinh Coates MD [address] [place] [address] PCP - General 01/11/10 documented as of this encounter
--- OUTSIDE RECORDS SUMMARY | 2023-09-07 11:28 | XMS_ITS | Encounter Summary ---
Author Organization [facility] Address [facility] [place] [address] Care Team Providers Care Maintenance Painter Apprentice Name Role Phone Trinh Coates MD Primary Care Provider [phone] Encounter Details Date Type Department Care Team (Late st Contact Info) Description 08/20/2018 Orders Only Dermatology at [facility] [address] [place] [address] [facility] [address] AGUILAR[place] [address] Psoriasis Social History Tobacco Use Types Packs/Day [...] 01/22/2024 10:30 AM EST Appointment Mammography[place] [phone] Ladi Mendosa MD [facility] HEMATOLOGY/[place] [address] 01/30/2024 11:30 AM EST Office Visit Dermatology at [facility] [address] [address] [facility] [address] AGUILAR[place] [address] 02/15/2024 9:30 AM EST [place] [phone] [place] [address] documented as of this encounter Visit Diagnoses Diagnosis Psoriasis Other psoriasis documented in this encounter Care Teams Maintenance Painter Apprentice Relationship Specialty Start Date End Date Trinh Coates MD [facility] [address] [address] PCP - General 01/11/10 documented as of this encounter
--- OUTSIDE RECORDS SUMMARY | 2023-09-07 11:28 | XMS_ITS | Encounter Summary ---
Author Organization [place] [address] Care Team Providers Care Curator Of Manuscripts Name Role Phone Trinh Coates MD Primary Care Provider [phone] Reason for Visit * Diagnostic Test (Routine) - Closed Specialty Diagnoses / Procedures Referred By Contac t Referred To Contact Radiology Diagnoses S/P breast reconstruction, bilateral Procedures NM Lymphoscintigraphy w Imaging Peripheral Edema Andre Gimenez MD [facility] [place] [place] [address] [place] [address] Referral ID Status Reason Start Date Expiration Date V isits Requested Visits Authorized [id number] Closed Specialty Service Requested 07/24/2018 07/24/2019 1 1 Encounter Details Date Type Department Care Team (Latest Contact Info) Description 08/14/2018 9:48 AM EDT - 08/14/2018 11:59 PM EDT Hospital Encounter [place] [address] Andre Gimenez MD [facility] [place] [address] Discharge Disposition: Home Social History Tobacco Use [...] ferrous gluconate 324 mg (37.5 mg iron) TabletIndications:Protei sukhjinder,Essential hypertension,Hypercalcem ia Take 324 mg by mouth daily. fluoxetine [...] tablet by mouth daily. 0 03/02/2017 07/12/2020 DILTiazem (CARDIZEM CD) 240 mg Capsule, Sust. Release 24 hr Take 1 capsule by mouth daily. 07/26/2015 10/17/2018 clobetasol (TEMOVATE) 0.05 % CreamIndications:Psorias is Apply to affected areas on knees, elbows and hands twice daily for two week cycles as needed. 60 g 3 04/16/2014 10/20/2019 ferrous sulfate (FeroSul) 325 mg (65 mg iron) tablet 1 tablet. 01/26/2014 05/15/2023 omeprazole (PriLOSEC OTC) [address] tablet 1 CAP daily 03/27/2014 024 ustekinumab (STELARA) 45 mg/0.5 mL SyringeIndications:Psori asis Starter pack 45mg SC on day 0 and then 4 weeks later. Then maintenance dose 45mg SC every 12 weeks 0.5 mL 08/16/2018 09/03/2018 triamcinolone (KENALOG) 0.1 % OintmentIndications:Psor iasis Apply 1 each topically 2 times daily. To affected areas on trunk 454 g 1 07/24/2018 11/15/2021 amLODIPine (NORVASC) 10 mg Tablet Take 10 mg by mouth daily. 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 90 tablet 3 05/29/2018 12/06/2018 gabapentin (NEURONTIN) 300 mg CapsuleIndications:Malig nant neoplasm of upper-outer quadrant of left breast in female, estrogen receptor positive,Neuropathy due to chemotherapeutic drug Take 1 capsule by mouth 3 times daily. 90 capsule 3 05/29/2018 07/25/2022 omeprazole (PRILOSEC) 40 mg Capsule, Delayed Release(E.C.) Take 1 capsule by mouth daily. 90 capsule 11 08/23/2017 08/23/2018 acetaminophen (TYLENOL) 325 mg Tablet Take 2 tablets by mouth every 4 hours as needed for Pain. 11/03/2015 07/25/2022 documented as of this encounter Plan of Treatment Upcoming Encounters Date Type Department Care Team (Late st Contact Info) Description 01/22/2024 10:30 AM EST Appointment Mammography/DXA at [place] [phone] Ladi Mendosa MD [facility] HEMATOLOGY/[place] [address] 01/30/2024 11:30 AM EST Office Visit Dermatology at [address] [place] [address] Nilda Luis MD [facility] DR LIDIA AMEZCUA-[place] [address] 02/15/2024 9:30 AM EST [place] [address] [place] [address] documented as of this encounter Procedures Procedure Name Priority Date/Time Associated Diagnosis Comments NM LYMPHOSCINTIGRAPHY WITH IMAGING PERIPHERAL EDEMA Routine 08/14/2018 12:35 PM EDT S/P breast reconstruction, bilateral documented in this encounter Results * NM Lymphoscintigraphy w Imaging Peripheral Edema (08/14/2018 12:35 PM EDT) Anatomical Region Laterality Modality Nuclear Medicine Impressions 08/14/2018 7:23 PM EDT 1. ??Decreased lymphatic flow in the left upper extremity with backflow pattern, as above. 2. ??Slow lymphatic flow in the right upper extremity with activity seen in the right axilla at 90 minutes post injection. Thank you for letting us participate in the care of this patient. For questions regarding this report, please contact the number below. ? Electronically signed by: Marilin Weinberg [facility] ([phone]), at 08/14/2018 7:23 PM Narrative 08/14/2018 7:23 PM EDT EXAMINATION: NM LYMPHOSCINTIGRAPHY W IMAGING PERIPHERAL EDEMA CLINICAL HISTORY: Lymphedema, left arm, post mastectomy TECHNIQUE: The web interspaces between the second and third fingers and third and fourth fingers, bilaterally, were injected intradermally with technetium-99m sulfur colloid, total dose on the right 1 mCi and total dose on the left 1 mCi. Dynamic images of the forearms were then acquired in the anterior projection for 30 minutes. This was followed by anterior static image of the forearms, and of the upper chest with a corresponding cobalt transmission image 40 minutes post injection. Subsequently, 90 minute delayed post injection static images were acquired of the forearms and of the chest. COMPARISON: CT chest 09/15/2017. FINDINGS: Left: The dynamic images show faint activity moving through the lymphatic vessels in the forearm. On the 40 minute post injection static images, activity is seen in the supraclavicular region, as well as a dermal backflow pattern in the visualized distal upper arm. No activity is identified in the axilla. On the 90 minute post injection images, there is diffuse dermal backflow pattern seen throughout the forearm and distal upper arm. Persistent activity is identified in the supraclavicular brannon region. Right: No activity is seen moving through the lymphatic vessels in the right forearm on the dynamic images. On the 40 minute postinjection images, no activity is seen in the forearm, nor in the axilla or supraclavicular region. On the 90 minute delayed images, there is faint activity is visualized in the lymphatic channels of the forearm with brannon radiotracer deposition in the right axilla. No dermal backflow pattern is seen. Procedure Note Marilin Weinberg MD - 08/14/2018 EXAMINATION: NM LYMPHOSCINTIGRAPHY W IMAGING PERIPHERAL EDEMA CLINICAL HISTORY: Lymphedema, left arm, post mastectomy TECHNIQUE: The web interspaces between the second and third fingers and third andfourth fingers, bilaterally, were injected intradermally with technetium-99msulfur colloid, total dose on the right 1 mCi and total dose on the left 1 mCi.Dynamic images of the forearms were then acquired in the anterior projection for30 minutes. This was followed by anterior static image of the forearms, andof the upper chest with a corresponding cobalt transmission image 40 minutespost injection. Subsequently, 90 minute delayed post injection static imageswere acquired of the forearms and of the chest. COMPARISON: CT chest 09/15/2017. FINDINGS: Left: The dynamic images show faint activity moving through thelymphatic vessels in the forearm. On the 40 minute post injection static images,activity is seen in the supraclavicular region, as well as a dermal backflowpattern in the visualized distal upper arm. No activity is identified in the axilla.On the 90 minute post injection images, there is diffuse dermal backflow patternseen throughout the forearm and distal upper arm. Persistent activity isidentified in the supraclavicular brannon region. Right: No activity is seen moving through the lymphatic vessels in theright forearm on the dynamic images. On the 40 minute postinjection images, no activity is seen in the forearm, nor in the axilla or supraclavicularregion. On the 90 minute delayed images, there is faint activity is visualized inthe lymphatic channels of the forearm with brannon radiotracer deposition in theright axilla. No dermal backflow pattern is seen. IMPRESSION 1. Decreased lymphatic flow in the left upper extremity with backflowpattern, as above. 2. Slow lymphatic flow in the right upper extremity with activity seen inthe right axilla at 90 minutes post injection. Thank you for letting us participate in the care of this patient. Forquestions regarding this report, please contact the number below. Electronically signed by: Marilin Weinberg [facility]([phone]), at 08/14/2018 7:23 PM Andre Gimenez MD IMG NM ORDERABLES documented in this encounter Visit Diagnoses Not on filedocumented in this encounter Care Teams Curator Of Manuscripts Relationship Specialty Start Date End Date Trinh Coates MD [facility] [address] [place] [address] PCP - General 01/11/10 documented as of this encounter
--- OUTSIDE RECORDS SUMMARY | 2023-09-07 11:28 | XMS_ITS | Encounter Summary ---
Author Organization [facility] Address [facility]ita [facility] [place] [address] Care Team Providers Care Rail Director Name Role Phone Trinh Coates MD Primary Care Provider [phone] Encounter Details Date Type Department Care Team (Latest Contact Info) Description 07/12/2018 7:00 AM EDT Laboratory [place] [phone] Pre-op testing; Hypertension, unspecified type Social History Tobacco Use [...] 01/22/2024 10:30 AM EST Appointment Mammography/[place] [phone] Ladi Mendosa MD [facility] HEMATOLOGY/[place] [address] 01/30/2024 11:30 AM EST Office Visit Dermatology at [facility] [address] [place] [phone] Nilda Luis MD [facility] [address] [place] [address] 02/15/2024 9:30 AM [place] [phone] [place] [address] documented as of this encounter Procedures Procedure Name Priority Date/Time Associated Diagnosis Comments CREATININE STAT 07/12/2018 6:22 AM EDT Pre-op testing Hypertension, unspecified type PLATELET COUNT STAT 07/12/2018 6:22 AM EDT Pre-op testing Hypertension, unspecified type documented in this encounter Results * Creatinine (07/12/2018 6:22 AM EDT) Creatinine 0.98 0.70 - 1.20 mg/dL [facility] Estimated GFR 65 >=60 mL/min/1.7 3 m?? [facility] Comment: The eGFR was calculated using the CKD-EPI equation. As with all creatinine based estimates of kidney function, eGFR values calculated with the CKD-EPI equation are not accurate in patients with acute kidney failure, extremes of body mass or the acutely ill. [email or web address] eGFR 75 >=60 mL/min/1.7 3 m?? [facility] Comment: The eGFR was calculated using the CKD-EPI equation. As with all creatinine based estimates of kidney function, eGFR values calculated with the CKD-EPI equation are not accurate in patients with acute kidney failure, extremes of body mass or the acutely ill. [email or web address] Blood specimen (specimen) 07/12/2018 6:22 AM EDT 07/12/2018 6:25 AM EDT Narrative Resulting Agency Comment Spec In Lab Marcos Dey MD CHEMISTRY ORDERABLES [facility] [place] [address] * (ABNORMAL) Platelet count (07/12/2018 6:22 AM EDT) Platelets 365(H) 145 - 357 x10(3)/mc L [facility] Plat Immature % 0.5 0.0 - 7.4 % [facility] Comment: Limitation of the Immature Platelet Fraction (IPF)-May be less reliable when the platelet count is less than 67v710/uL due to statistical imprecision. The IPF value [...] in a decreased state of production. References: [employer] The Clinical Value of the Immature Platelet Fraction (IPF) in Cell Recovery Document Number 10-1143 07/2010 [employer] The Role of the Immature Platelet Fraction (IPF) in the Differential Diagnosis of Thrombocytopenia, Document [id number] V05/02/01 P05/14 Blood specimen (specimen) 07/12/2018 6:22 AM EDT 07/12/2018 6:25 AM EDT Narrative Resulting Agency Comment Spec In Lab Marcos Dey MD HEMATOLOGY ORDERABLE S [facility] [place] [address] documented in this encounter Visit Diagnoses Diagnosis Pre-op testing Preoperative examination, unspecified Hypertension, unspecified type documented in this encounter Care Teams Rail Director Relationship Specialty Start Date End Date Trinh Coates MD [facility] [address] [facility] [address] [place] [address] PCP - General 01/11/10 documented as of this encounter
--- OUTSIDE RECORDS SUMMARY | 2023-09-07 11:28 | XMS_ITS | Encounter Summary ---
Author Organization [facility] Address [facility] [place] [address] Care Team Providers Care Room Service Waiter Name Role Phone Trinh Coates MD Primary Care Provider [phone] Encounter Details Date Type Department Care Team (Late st Contact Info) Description 07/23/2018 Orders [place] [phone] Lakeisha Reza MD [facility] [place] [address] Hyperaldosteronism Social History Tobacco Use Types Packs/Day [...] 01/22/2024 10:30 AM EST Appointment Mammography[place] [phone] Ladi Mendosa MD [facility] HEMATOLOGY/[place] [address] 01/30/2024 11:30 AM EST Office Visit Dermatology at [facility] [address] [place] [address] Nilda Luis MD [facility] DR [address] [address] 02/15/2024 9:30 AM EST [place] [phone] [place] [address] documented as of this encounter Visit Diagnoses Diagnosis Hyperaldosteronism Hyperaldosteronism, unspecified documented in this encounter Care Teams Room Service Waiter Relationship Specialty Start Date End Date Trinh Coates MD [facility] [address] [place] [address] PCP - General 01/11/10 documented as of this encounter
--- OUTSIDE RECORDS SUMMARY | 2023-09-07 11:28 | XMS_ITS | Encounter Summary ---
Author Organization [facility] Address [facility]ita [facility] [place] [address] Care Team Providers Care Kiln Loader Name Role Phone Trinh Coates MD Primary Care Provider [phone] Encounter Details Date Type Department Care Team (Late st Contact Info) Description 08/08/[address] [facility] [address] [place] [address] Tino Mann MD [facility] [address] [place] [address] Social History Tobacco Use Types Packs/Day Years [...] encounter Miscellaneous Notes * Telephone Encounter - Malka Rudolph - 08/08/2018 10:[address] Champagne contacted the clinic today to complete a Peer to Peer for a one of Wendy's medication. He will be available at [phone] until 1pm. Message passed along to Dr. Mann verbally. documented in this encounter Plan of Treatment Upcoming Encounters Date Type Department Care Team (Late st Contact Info) Description 01/22/2024 10:30 AM EST Appointment Mammography/[place] [address] Ladi Mendosa MD [facility] HEMATOLOGY/[place] [address] 01/30/2024 11:30 AM EST Office Visit Dermatology at [place] [address] [place] [phone] Nilda Luis MD [facility] [place] [place] [address] 02/15/2024 9:30 AM EST [place] [address] [place] [address] documented as of this encounter Visit Diagnoses Not on filedocumented in this encounter Care Teams Kiln Loader Relationship Specialty Start Date End Date Trinh Coates MD [facility] [address] [place] [address] PCP - General 01/11/10 documented as of this encounter
--- OUTSIDE RECORDS SUMMARY | 2023-09-07 11:28 | XMS_ITS | Encounter Summary ---
Author Organization [facility] [address] Care Team Providers Care Fishing Captain Name Role Phone Trinh Coates MD Primary Care Provider [phone] Reason for Referral * Diagnostic Test (Routine) - Closed Specialty Diagnoses / Procedures Referred By Diamante marin Referred To Contact Radiology Diagnoses Primary hyperaldosteronism Procedures IR Adrenal Vein Sampling Marcos Dey MD [facility] [place] [address] [place] [address] Referral ID Status Reason Start Date Expiration Date V isits Requested Visits Authorized [id number] Closed Specialty Service Requested 06/26/2018 06/26/2019 1 1 Encounter Details Date Type Department Care Team (Latest Contact Info) Description 06/26/2018 [place] [address] Marcos Dey MD [facility] [place] [address] Primary hyperaldosteronism Social History Tobacco Use Types Packs/Day Years [...] as of this encounter Progress Notes * Marcos Dey MD - 06/26/2018 9:13 AM EDT Images from the original note were not included. FOCUSED H&P and PRE-PROCEDURE IR NOTE: PCP: Trinh Coates MD Referring Physician: Lakeisha Reza MD Planned Procedure: Adrenal vein sampling Procedure Indication: hyperaldosteronism Presenting Diagnosis/ Complaint: Wendy Sandoval is a 53 y.o. female with history of Invasive ductal carcinoma ER/KS +++, HER-2/pat negative [id number], s/p bilateral mastectomy and adjuvant chemotherapy, primary hyperparathyroidism s/p parathyroidectomy, and longstanding hypertension who presented to Endocrine clinic for evaluation of hypokalemia. Lab studies show normal cortisol, but she has renin of <0.6 and aldosterone of 21 ng/dl. Hypertension relatively controlle d, but with K 2.8. To evaluate for unilateral aldosterone production, adrenal vein sampling is desired. HPI: diagnosed with toxemia during her [id number], but hypertension persisted after delivery. treated with HCTZ and required potassium replacement. She initially had good BP control, but later required the addition of Valsartan, changed to losartan. After diagnosed with breast ca on screening mammogram 03/21/17, her HCTZ and potassium were discontinued. She then developed severe leg cramping was found to have K of 1.8. 03/09/18 was taking spironolactone 12.5 mg daily, potassium chloride 20 meq BID, and losartan 100 mgdaily. Peripheral edema resolved with initiation of spironolactone. MRI abdomen 03/2017 in staging for breast ca demonstrated normal adrenal glands. 12/16/17 had revision of bilat reconstructed breasts. Completed XRT 03/09. Ms. Sandoval also has a history of hyperparathyroidism and was referred to Dr. Green by her PCP 10/15/15 for Ca of 10.9 c/b nephrolithiasis. Localization studies including ultrasound and sestamibi scan indicated a right lower??parathyroid abnormality and she had 3 gland parathyroidectomy on 11/02/15. Interestingly, both father and sister had nephrolithasis and primary hyperparathyroidism as well. Past Medical/Surgical History: Patient Active Problem List Diagnosis Code ??? Hypertension I10 ??? Depression F32.9 ??? Obstructive sleep apnea (adult) (pediatric) G47.33 ??? OA (osteoarthritis) M19.90 ??? Overweight(278.02) E66.3 ??? Hyperparathyroidism E21.3 ??? S/P breast reconstruction, bilateral Z98.890 ??? Surgery follow-up Z09 ??? Abdominal wound dehiscence T81.30XA ??? Hypokalemia E87.6 ??? Bacterial conjunctivitis H10.9 ??? Seroma of breast N64.89 ??? History of breast cancer Z85.3 Psoriasis Nephrolithiasis Past Medical History: Diagnosis Date ??? Fibrocystic breast determined by biopsy ??? Hyperlipidemia ??? Impaired fasting glucose ??? Malignant neoplasm of upper-outer quadrant of left breast in female, estrogen receptor positive03/31/2017 ??? Obstructive sleep apnea on CPAP ??? Proteinuria Past Surgical History: Procedure Laterality Date ??? BREAST BIOPSY Right 11/01 ??? SECTION x 2 ??? HAND SURGERY Right ??? IR DRAIN CHECK/CHANGE/REMOVE 11/20/2017 IR Drain Check/Change/Remove 11/20/2017 Marcos Dey MD [facility] INTERVENTIONL RAD ??? IR MEDIPORT REMOVAL 01/25/2018 IR Mediport Removal 01/25/2018 Scooby Muñoz APRN [facility] INTERVENTIONL RAD ??? PRG EMG, LARYNX N/A 11/02/2015 FACIAL NERVE MONITORING, SETUP LARYNGEAL performed by Valentina Lucas MD at [facility] MAIN OR ??? PRO BREAST RECONSTRUC W FREE FLAP Bilateral 04/26/2017 @BREAST RECONSTRUCTION W/ FREE FLAP, SUSAN (WRVU 42.58) performed by Andre Gimenez MD at [facility] [place] ??? PRO BREAST RECONSTRUC W FREE FLAP, W/O IMPLANT Bilateral 12/12/2017 @BREAST RECONSTRUCTION W/ LAT DORSI FLAP,W/O IMPLANT, SUSAN (WRVU 23.36) performed by Andre Gimenez MD at [facility] MAIN OR ??? PRO BREAST RECONSTRUC W TISS EXPANDR Bilateral 04/26/2017 BREAST RECONSTRUCTION, IMMEDIATE OR DELAYED, W/ TISSUE RECREATIONAL THERAPY TECHNICIAN, INCLUDING SUBSEQUENT EXPANSION (WRVU 18.5) performed by Andre Gimenez MD at [facility] OR ? ? PRO DEBRIDEMENT SUBCUTANEOUS TISSUE 20 SQCM/< 06/22/2017 DEBRIDEMENT SKIN AND SUBCU, BREAST (WRVU 1.01) performed by Andre Gimenez MD at [facility] OR ??? PRO EXPLORE PARATHYROID GLANDS N/A 11/02/2015 PARATHYROIDECTOMY OR EXPLORATION OF PARATHYROID(S) performed by Valentina Lucas MD at [facility] OR ? ? PRO FULL THICK GRFT TRUNK <20 SQCM Bilateral 04/26/2017 FTSG, FREE, DIR CLOSE DONOR SITE, TRUNK, 20 SQ CM OR LESS (WRVU 9.15) performed by Andre Gimenez MD at [facility] OR ??? PRO MASTECTOMY, SIMPLE, COMPLETE Bilateral 04/26/2017 MASTECTOMY, SIMPLE, COMPLETE-SUSAN (WRVU 15.85) performed by Jolie Menendez MD at [facility] OR ??? PRO PARTIAL REMOVAL OF RIB Bilateral 04/26/2017 EXCISION OF RIB, PARTIAL (WRVU 7.26) performed by Andre Gimenez MD at [facility] OR ??? PRO REMOVE ARMPITS LYMPH NODES COMPLT Left 04/26/2017 LYMPHADENECTOMY, AXILLARY, COMPLETE (WRVU 13.87) performed by Jolie Menendez MD at [facility] OR ??? PRO REPLACE TISSUE RECREATIONAL THERAPY TECHNICIAN Bilateral 12/12/2017 TISSUE RECREATIONAL THERAPY TECHNICIAN REPLACEMENT, WITH PERMANENT PROSTHESIS, SUSAN (WRVU 8.01) performed by Andre Gimenez MD at [facility] OR ??? PRO REVISE BREAST RECONSTRUCTION Left 06/22/2017 REVISION OF RECONSTRUCTED BREAST (WRVU 10.41) performed by Andre Gimenez MD at [facility] OR ??? PRO REVISE BREAST RECONSTRUCTION Bilateral 12/12/2017 REVISION OFRECONSTRUCTED BREAST, SUSAN (WRVU 10.41) performed by Andre Gimenez MD at [facility] OR ??? PRO THYMECTOMY, TRANSCERVICAL N/A 11/02/2015 THYMECTOMY, TRANSCERVICAL APPROACH performed by Valentina Lucas MD at [facility] OR ??? SHOULDER SURGERY Left ??? UMBILICAL HERNIA REPAIR Medications: Medication Sig ??? tamoxifen (NOLVADEX) 20 mg Tablet Take 1 tablet by mouth daily. ??? gabapentin (NEURONTIN) 300 mg Capsule Take 1 capsule by mouth 3 times daily. ??? hydroCHLOROthiazide (HYDRODIURIL) 25 mg Tablet Take 1 tablet by mouth daily. ??? spironolactone (ALDACTONE) 25 mg Tablet 0.5 tablets daily. ??? losartan (COZAAR) 100 mg Tablet take 1 tablet by mouth once daily ??? potassium chloride 20 mEq Tablet Sustained Release take 3 tablets by mouth daily ??? omeprazole (PRILOSEC) 40 mg Capsule, Delayed Release(E.C.) Take 1 capsule by mouth daily. (Patient not taking: Reported on 05/29/2018) ??? cholecalciferol, Vitamin D3, (VITAMIN D-3) 5,000 unit Tablet Take by mouth. ??? atorvastatin (LIPITOR) 20 mg Tablet Take 1 tablet by mouth daily. ??? triamcinolone (ARISTOCORT) 0.5 % Cream Apply topically 3 times daily. To hand, elbow and lower back Indications: Plaque Psoriasis ??? acetaminophen (TYLENOL) 325 mg Tablet Take [...] daily for two week cycles as needed. ??? fluoxetine (PROZAC) 40 mg capsule daily. Allergies: Zoloft [sertraline] Social History and Habits: Social History Socioeconomic History ??? Marital status: [...] file Gets together: Not on file Attends restorationist service: Not on file Active member of [...] Social History Narrative ??? Not on file Significant Family History: Family History Problem Relation Age [...] 57 ??? Stomach Cancer Maternal Cousin 57 Physical Exam: Pending Labs: Lab Results Component Value Date WBC 13.1 (H) 12/15/2017 ANC 12.19 (H) 10/04/2017 HCT 24.6 (L) 12/15/2017 PLATELET 339 12/15/2017 INR 1.1 11/30/2017 BUN 24 (H) 12/15/2017 CREATININE 1.35 (H) 12/15/2017 ALKPHOS 77 12/15/2017 AST 15 12/15/2017 ALBUMIN 2.6 (L) 12/15/2017 BILITOT <0.2 (L) 12/15/2017 ALT <5 12/15/2017 PROT 5.5 (L) 12/15/2017 04/01/18: The 24 hour urinary cortisol level pre dexamethasone administration was 16 mcg/24 hours (normal 3.5-45mcg/24hrs) and post dexamethasone 24 hour urinary cortisol was 27. 24 hour urine creatinine 1.15 and 1.10, respectively. ALDOSTERONE 21 (ng/dl) (<21) 05/21/18 RENIN ACTIVITY <0.6 ng/ml/h (>2.9) Prior Imagin01/16/18 CT: Solid organs: Punctate nonobstructing renal calculi are present in the bilateral renal pelvises. The largest calculus measures 4 mm and is present in the left superior pole. No hydronephrosis. High attenuation material is present within the antrum of the stomach, and could correspond to ingested medication. Small amount of calcified sludge layering independently within the gallbladder. Osseous structures: No suspicious lesions Assessment: Mrs. Sandoval is a 53 yo woman with longstanding hypertension, hyperaldosteronism and hypokalemia, her plasma alsdosterone-renin ratio is >35. Hypertension relatively controlled, but with K 2.8. Plan: Bilateral adrenal vein sampling. Patient to remain off spironolactone until after procedure. Labs: [per IR/CT protocol] Prophylactic antibiotic: [none] Medications to discontinue (and when): [none] Patient Position: [supine] Access site: Right CFV Sedation Plan : Mod Conscious Discharge Plan: home documented in this encounter Plan of Treatment Upcoming Encounters Date Type Department Care Team (Late st Contact Info) Description 01/22/2024 10:30 AM EST Appointment Mammography/[place] [address] Ladi Mendosa MD [facility] [place] [address] 01/30/2024 11:30 AM EST Office Visit Dermatology at [place] [address] [place] [phone] Nilda Luis MD [facility] [address] [place] [address] 02/15/2024 9:30 AM EST [place] [address] [place] [address] documented as of this encounter Results * IR Adrenal Vein Sampling (07/12/2018 9:59 AM EDT) Anatomical Region Laterality Modality X-Ray Angiograph y Addenda Addendum by Marcos Dey MD on 07/22/2018 3:43 PM EDT ADDENDUM: Sample location ??Cortisol ??Aldosterone A/C R/L Right ??08:34 ?512 ?2410 ? 4.7 ? 1.3 ?? Left ??08:41 ?724 ?2570 ? 3.5 ? IVC ??08:46 ?30.6 ?36 ? 1.2 ? Adrenal vein sampling was successful as adrenal cortisols were 5x greater than perhipheral sample. ?? Unilateral aldosterone hypersecretion was NOT documented by cortisol corrected aldosterone ratio, as it was less than 4. ??(sens 95.5%, specif 100%) ??(Young Surgery 2004;136:1227) Narrative 07/12/2018 2:00 PM EDT IR PROCEDURE REPORT: ?? Bilateral adrenal vein sampling Indication: Patient is a 53 yo woman with longstanding hypertension, hyperaldosteronism, hypokalemia, and plasma alsdosterone-renin ratio >35. ?? IR consulted for adrenal vein sampling to evaluate for unilateral source (aldosterone producing adenoma). Technique: After discussing risks (including infection, hemorrhage, and allergic reaction), and benefits, patient consented to the procedure. Due to the painful nature of the procedure, split doses of fentanyl and versed were administered by the IR nurse during continuous monitoring of pulse, blood pressure and oxygen saturation. ??Procedure was performed in accordance with [facility] protocol. ??An IV infusion of 50 mcg of cosyntropin /hr was begun 45 minutes prior to groin access. ?? After sterile preparation, localization with fluoroscopy, and 8cc lidocaine 1% local anesthesia, a 21 ga needle was advanced into the right common femoral vein. ??An .018 inch guidewire was placed, and over this a 5 Fr introducer advanced. ??Wire and inner dilator were removed and through this a .035 inch guidewire was advanced. ??A 5 Fr sheath was placed. ?? The 5 Fr C2 catheter was advanced over a guidewire into the suprarenal cava, and the right adrenal vein was selected. ??Coaxially an .018 inch guidewire was advanced just beyond the catheter tip. ??Position confirmed with hand injection of contrast, AP/lateral spot images, and DynaCT spin images. ??A specimen was obtained with wire in place through a [id number]. ??Specimen was sent for stat cortisol (08:34)and aldosterone (08:37). A Sos Omni catheter was then advanced over a guidewire into the left renal vein. ??With an .018 inch guidewire, the left adrenal vein was selected, and the 3 Fr Renegade HiFlo catheter was advanced into the left adrenal vein. ??Position was confirmed with hand injection of contrast and AP spot image. ??Specimen was obtained for aldosterone and cortisone levels (08:41). Catheter was then retracted to the infrarenal IVC, and specimen again obtained (08:46). Additional right adrenal branches were selected with the C2 catheter, and confirmed with contrast spot and DynaCT spin images. ??Specimens were obtained (09:02 and 09:44). ??Sheath was removed and hemostasis obtained with manual compression. Patient tolerated the procedure well and there were no immediate complications. ?? Fluoro time: 28.7 ??min. ??Contrast : 50 cc Omnipaque 350 IV. ?? EBL: 30 cc Impression: Technically successful sample of bilateral adrenal veins and infrarenal IVC for cortisol and aldosterone levels. Final analysis will be appended in approximately 1 week, pending results of aldosterone and cortisol levels. Fellow: Kevyn Lara Attending: ??Connie Dey I, Dr. Dey, was present throughout the procedure. I was present during the intraservice time as documented by the IR Nurse. ?? Marcos Dey MD IMG IR ORDERABLES documented in this encounter Visit Diagnoses Diagnosis Primary hyperaldosteronism Hyperaldosteronism, unspecified Pre-op testing Preoperative examination, unspecified Hypertension, unspecified type Primary hyperaldosteronism Hyperaldosteronism, unspecified documented in this encounter Care Teams Fishing Captain Relationship Specialty Start Date End Date Trinh Coates MD [facility] [address] [place] [address] PCP - General 01/11/10 documented as of this encounter
--- OUTSIDE RECORDS SUMMARY | 2023-09-07 11:28 | XMS_ITS | Encounter Summary ---
[place] [address] Care Team Providers Care Bss Solution Architect Name Role Phone Trinh Coates MD Primary Care Provider [phone] Encounter Details Date Type Department Care Team (Late st Contact Info) Description 07/19/2018 Telephone [place] [phone] Susana Cabezas LPN Social History Tobacco Use Types Packs/Day Years [...] Miscellaneous Notes * Telephone Encounter - Susana Cabezas LPN - 07/23/2018 8:42 AM EDT Patient called, and left message, stating she'd had a procedure done on 07/12 and is anxiously awaiting results. Would like Dr. Reza to call at her earliest convenience. Patient called again on Sun, 07/22 leaving similar message to above. Note forwarded to Dr. Reza. documented in this encounter Plan of Treatment Upcoming Encounters Date Type Department Care Team (Late st Contact Info) Description 01/22/2024 10:30 AM EST Appointment Mammography/[place] [address] Ladi Mendosa MD [facility] HEMATOLOGY/[place] [address] 01/30/2024 11:30 AM EST Office Visit Dermatology at [place] [address] [place] [phone] Nilda Luis MD [facility] [address] [place] [address] 02/15/2024 9:30 AM EST Appointment Radiology at [place] [phone] [place] [address] documented as of this encounter Visit Diagnoses Not on filedocumented in this encounter Care Teams Bss Solution Architect Relationship Specialty Start Date End Date Trinh Caotes MD [facility] [address] [place] [address] PCP - General 01/11/10 documented as of this encounter
--- OUTSIDE RECORDS SUMMARY | 2023-09-07 11:28 | XMS_ITS | Encounter Summary ---
Author Organization [facility] Address [facility] [place] [address] Care Team Providers Care Chief Controller Tower Name Role Phone Trinh Coates MD Primary Care Provider [phone] Reason for Visit * Consultation (Routine) - Specialty Diagnoses / Procedures Referred By Diamante marin Referred To Contact Endocrinology Diagnoses HYPOKALEMIA Trinh Coates MD [address] [place] [address] [facility] [address] [place] [address] [facility] [address] [place] [phone] Referral ID Status Reason Start Date Expiration Date V isits Requested Visits Authorized [id number] Consult, Test & Treat Connection Center 12/10/2017 12/10/2018 6 6 Encounter Details Date Type Department Care Team (Late st Contact Info) Description 03/12/2018 10:30 AM EST Office [place] [address] Flip Angel MD [facility] [place] [address] Lakeisha Reza MD [facility] [place] [address] Hypokalemia; Hypertension, unspecified type Social History Tobacco [...] Sign Reading Time Taken Comments Blood Pressure 157/103 03/12/2018 10:26 AM EST Pulse 86 03/12/2018 10:26 AM EST Temperature 36.8 ??C (98.3 ??F) 03/12/2018 10:[address] Respiratory Rate 16 03/12/2018 10:26 AM EST Oxygen Saturation 99% 03/12/2018 10:26 AM EST Inhaled Oxygen Concentration - - Weight - - Height 152.4 cm (5') 03/12/2018 10:26 AM EST Body Mass Index - - documented in this encounter Patient Instructions * Patient Instructions* Lakeisha Reza MD - 03/12/2018 10:30 AM EST To further evaluate for hormonal causes of your low potassium and high blood pressure, we are goingto look for a condition of excess stress hormone/cortisol known as Stronghurst's syndrome, as well as excess aldosterone. The first test we would like you to do is a dexamethasone suppression test. To have this done you should take the 1 mg of dexamethasone provided to you at this appointment at 11 pm. The following morning you should bring the cortisol lab slip to your local lab at 8 am and have the cortisol level done. Under normal circumstances this cortisol level should be low/suppressed. Once you have had this lab work done, please call [phone] if you have not heard back from me within 1 week to ensure I received the lab results. If this lab test is normal, we will proceed in testing for hyperaldosteronism. To have these tests performed we need to stop your spironolactone. I will prescribe you an alternative blood pressure medicine (hydrochlorothiazide) to replace spironolactone and have you perform potassium checks (weekly) once the spironolactone is stopped to ensure this remains normal. You should be off spironolactone for 1 month when you go to your local lab to have your renin and aldosterone levels checked. Again, please call me if you haven't heard from me within 1 week of this blood drawn. If these hormones are not elevated, the other reason for low potassium may be related to your kidneys ability to reabsorb potassium, which can sometimes occur with chemotherapy. If this is the case you will likely need to continue the potassium replacement. 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 History of Presenting Illness: Ms. Sandoval was diagnosed with toxemia during her , but notes hypertension persisted after delivery of her son 26 years ago. She was initially treated with HCTZ and required potassium replacement. She initially had good BP control, but later required the addition of Valsartan, followed by losartan due to recall. She was diagnosed with breast ca on screening mammogram 03/21/17. She states during oncology evaluation it was questioned why she was on HCTZ and potassium, and both were discontinued. She subsequently developed severe leg cramping and on presentation to OSH was found to have K of 1.8. She notes 3 OSH admissions within 2 weeks. She denies any problems with diarrhea at the time of these admissions (stool looser while on chemotherapy-Cyclophosphamide and Doxorubicin, but small and once daily). She has not had any urine studies for excessive urinary K excretion. Ms. Sandoval notes she initially had good BP control, but lately BP is harder to control. She is currently taking spironolactone 12.5 mg daily, potassium chloride 20 meq BID, and losartan 100 mg daily. She did have peripheral edema previously, but this resolved with initiation of spironolactone. MRIabdomen 03/2017 in staging for breast ca demonstrated normal adrenal glands. She received dexamethasone for nausea during chemotherapy, but denies other steroid administration. Ms. Sandoval also has a history of hyperparathyroidism and was referred to Dr. Green by her PCP 10/15/15 for Ca of 10.9 c/b nephrolithiasis. Localization studies including ultrasound and sestamibi scan indicating a right lower parathyroid abnormality and she had 3 gland parathyroidectomy on 11/02/15. Interestingly, both father and sister had nephrolithasis and primary hyperparathyroidism as well. ROS: Gen: Weight gain+-30 lbs since diagnosis of breast ca, eating more since nausea resolved and exercising less, feels majority is in abdominal region Endocrine: Easy bruising+ Cardiac: No chest pain, no palpitations Resp: No SOB, no cough Abdomen: No nausea or vomiting, no diarrhea, constipation+ Neuro: No headaches, no visual changes, No dizziness Skin: red, itchy skin at site of radiation Past Medical History: Patient Active Problem List Diagnosis Code ??? Hypertension I10 ??? Depression F32.9 ??? Obstructive sleep apnea (adult) (pediatric) G47.33 ??? OA (osteoarthritis) M19.90 ??? Overweight(278.02) E66.3 ??? Hyperparathyroidism E21.3 ??? Malignant neoplasm of upper-outer quadrant of left breast in female, estrogen receptor pbrzdcmdB07.412, Z17.0 ??? S/P breast reconstruction, bilateral Z98.890 ??? Surgery follow-up Z09 ??? Abdominal wound dehiscence T81.30XA ??? Hypokalemia E87.6 ??? Bacterial conjunctivitis H10.9 ??? Seroma of breast N64.89 ??? History of breast cancer Z85.3 Invasive Ductal carcinoma-L breast Bilateral mastectomy on 04/26/18 ??2.0 cm cancer, high-grade, grade 3. ??ER/OR +++, HER-2/pat negative, 4/18 nodes (1/ additional nodes with ITC). ??LVI negative. S/p Cyclophasmide and Doxorubicin She finished radiation 03/11 (5.5 weeks) Past Surgical Hx: Umbilical Hernia repair Shoulder surgery Parathyroidectomy Bilateral mastecomy Current Outpatient Medications on File Prior to Visit Medication Sig Dispense Refill ??? silver sulfADIAZINE (SILVADENE) 1 % Cream Apply at least daily and prn. 2-4 gm/day 400 g 0 ??? spironolactone (ALDACTONE) 25 mg Tablet 0.5 tablets daily. 0 ??? gabapentin (NEURONTIN) 300 mg Capsule take 1 capsule by mouth at bedtime 0 ??? emollient base (CREAM BASE TOP) Apply topically. Jeans Cream. Apply to area of radiation twice a day but no less than 2 hours before a treatment. ??? gabapentin (NEURONTIN) 100 mg Capsule Take 1 capsule by mouth nightly as needed. If no benefit after a week, can increase to 200mg, then 300mg at night if not too sedating. 60 capsule 2 ??? tamoxifen (NOLVADEX) 20 mg Tablet Take 1 tablet by mouth daily. Start 2-3 weeks after radiationtherapy is completed. 90 tablet 3 ??? losartan (COZAAR) 100 mg Tablet take 1 tablet by mouth once daily 0 ??? potassium chloride 20 mEq Tablet Sustained Release take 3 tablets by mouth daily 0 ??? omeprazole (PRILOSEC) 40 mg Capsule, Delayed Release(E.C.) Take 1 capsule by mouth daily. 90 capsule 11 ??? cholecalciferol, Vitamin D3, (VITAMIN D-3) 5,000 unit Tablet Take by mouth. ??? atorvastatin (LIPITOR) 20 mg Tablet Take 1 tablet by mouth daily. 0 ??? triamcinolone (ARISTOCORT) 0.5 % Cream Apply [...] fluoxetine (PROZAC) 40 mg capsule daily. ??? LORazepam (ATIVAN) 0.5 mg Tablet Take 1 tablet by mouth every 6 hours as needed for Anxiety. (Patient not taking: Reported on 03/12/2018) 30 tablet 0 No current facility-administered medications on file prior to visit. Allergies: Allergies Allergen Reactions ??? 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 Lives in [facility] with and son (26 yoa). Daughter lives in [place], but moved home recently to help during her cancer treatments. Vitals Last value Temperature Temp: 36.8 ??C (98.3 ??F) Heart Rate Heart Rate: 86 Blood Pressure BP: (!) 157/103 Respiratory Rate Resp: 16 Body mass index is 34.57 kg/m??. Physical Exam: General appearance: pleasant female patient sitting comfortably in chair, +rounding of the face HEENT: EOMI, CONTRERAS, moist mucus membranes Neck: No thyromegaly, no nodules or cervical LAD appreciated on palpation, no supraclavicular or dorsocervical LAD CVS: RRR, +S1, S2. no murmurs or added sounds Pulm: Breathing comfortably on RA, clear to auscultation BL Abd: central adiposity, soft, non-tender, no striae Extremities: no peripheral edema Skin: No ecchymosis, healthy appearing aside from erythema at left chest/radiation site Pertinent Laboratory Findings: Ref. Range 12/05/2017 10:24 12/13/2017 05:16 12/14/2017 04:40 12/15/2017 10:05 12/15/2017 15:20 Sodium Latest Ref Range: 135 - 145 mmol/L 145 142 137 143 144 Potassium Latest Ref Range: 3.5 - 5.0 mmol/L 3.5 3.2 (L) 3.5 3.6 3.8 Chloride Latest Ref Range: 98 - 107 mmol/L 105 103 99 110 (H) 109 (H) CO2 Latest Ref Range: 22 - 31 mmol/L 25 20 (L) 22 22 22 Anion Gap Latest Ref Range: 5 - 15 mmol/L 15 19 (H) 16 (H) 11 13 BUN Latest Ref Range: 8 - 18 mg/dL 12 14 34 (H) 28 (H) 24 (H) Creatinine Latest Ref Range: 0.70 - 1.20 mg/dL 0.89 1.19 2.20 (H) 1.40 (H) 1.35 (H) eGFR Latest Ref Range: >=60 mL/min/1.73 m?? 73 52 (L) 25 (L) 42 (L) 44 (L) eGFR Latest Ref Range: >=60 mL/min/1.73 m?? 85 60 29 (L) 49 (L) 51 (L) Glucose Lvl Latest Ref Range: 65 - 199 mg/dL 118 184 159 199 182 Calcium Latest Ref Range: 8.5 - 10.5 mg/dL 9.1 7.8 (L) 7.6 (L) 8.2 (L) 8.2 (L) Magnesium Latest Ref Range: 0.69 - 1.07 mmol/L 0.63 (L) Total Protein Latest Ref Range: 6.1 - 8.0 gm/dL 6.6 5.5 (L) Albumin Latest Ref Range: 3.2 - 5.2 gm/dL 3.9 2.6 (L) Total Bilirubin Latest Ref Range: 0.2 - 1.3 mg/dL 0.2 <0.2 (L) Alk Phos Latest Ref Range: 40 - 104 unit/L 122 (H) 77 AST Latest Ref Range: 0 - 30 unit/L 15 15 ALT Latest Ref Range: 0 - 30 unit/L 18 <5 Assessment: Wendy Sandvoal is a 52 yoa F with PMH of Invasive ductal carcinoma ER/OR +++, HER-2/pat negatives/p bilateral mastectomy and adjuvant chemotherapy, primary hyperparathyroidism s/p parathyroidectomy, and longstanding hypertension who presents to Endocrine clinic for evaluation of hypokalemia. HTN at a young age (diagnosed ~28 yoa) and persistent HTN on 2 antihypertensives with hypokalemia raises concern for hyperaldosteronism or Justina's syndrome. However, primary adrenal issue is felt to be less likely based on normal adrenal glands on relatively recent MRI abdomen. As she is currently on spironolactone, cannot test for hyperaldosteronism for several weeks after transitioning to an alte rnative antihypertensive. Consequently, plan to test for Justina's syndrome first with Dexamethasone suppression testing. Though unlikely, it is possible with strong family history of primary hyperparathyroidism that she has familial condition such as MEN 1 with ACTH producing pituitary tumor (Justina's Disease). She has some features suggestive of excess cortisol with rounding of face, central adiposity, but no striae or supraclavicular fat pads. She also received dexamethasone during chemotherapy treatments, which could contribute to these clinical features. If dexamethasone suppression test is unrevealing, will transition spironolactone to HCTZ to continue HTN treatment x 4 weeks (in addition to continuing losartan), and then perform Renin and aldosterone testing for potential hyperaldosteronism. As this transition may exacerbate hypokalemia, will plan to monitor potassium every week. If work up for Endocrine related causes of hypokalemia is unrevealing, suspect hypokalemia may be due to renal tubular losses of potassium, which can be worsened with some chemotherapeutic agents. She may benefit from urine electrolyte studies if Renin, aldosterone, and dexamethasone suppression testing are normal. Plan: #HTN with hypokalemia -Evaluate for Justina's syndrome with Dexamethasone suppression test (dexamethasone provided and aswell as external lab slip) -If 8am cortisol <1.8 following dexamethasone (negative Stronghurst's screen), discontinue spironolactone and start HCTZ with weekly K checks x 4 weeks -Once off spironolactone x 4 weeks will obtain Renin and Aldosterone -If above work up is unrevealing, consider urine electrolyte testing as may have renal tubular lossas etiology for hypokalemia (eg. Type 1 RTA) This case has been discussed with Dr. Angel of Endocrinology. Lakeisha Reza PGY 4 Endocrinology Pager [phone] * Flip Angel MD - 03/12/2018 10:30 AM EST I have seen the patient and reviewed Dr Reza's history and I agree with the details as written. The assessment and plan were formulated in discussion with me and I agree with them as documented. Flip Angel MD Actuarial Clerkrespiratory director Endocrinology Section [facility] documented in this encounter Plan of Treatment Upcoming Encounters Date Type Department Care Team (Late st Contact Info) Description 01/22/2024 10:30 AM EST Appointment Mammography/[place] [phone] Ladi Mendosa MD [facility] [place] [address] 01/30/2024 11:30 AM EST Office Visit Dermatology at [facility] [address] [place] [address] Nilda Luis MD [facility] [address] [place] [address] 02/15/2024 9:30 AM EST [place] [address] [place] [address] documented as of this encounter Visit Diagnoses Diagnosis Hypokalemia Hypopotassemia Hypertension, unspecified type documented in this encounter Care Teams Chief Controller Tower Relationship Specialty Start Date End Date Trinh Coates MD [facility] [address] [place] [address] PCP - General 01/11/10 documented as of this encounter
--- OUTSIDE RECORDS SUMMARY | 2023-09-07 11:28 | XMS_ITS | Encounter Summary ---
Author Organization [facility] [place] [address] Care Team Providers Care Cryptographic Technician Name Role Phone Trinh Coates MD Primary Care Provider Encounter Details Date Type Department Care Team (Late st Contact Info) Description 08/12/2018 Telephone Hematology [place] [address] Mana Hardin RN Social History [...] Telephone Encounter - Mana Rosenberg RN - 08/12/2018 2:53 PM EDT Message received from bilingual secretary: Wendy calls today and states that she mentioned to Dr. Barnett at her last visit that since starting Tamoxifen, she has been having itching attacks over her entire body. More disturbing to her are that the inside of her ear and her entire scalp are incessantly itchy. She saw her triage specialist who confirmed that the itching is not being caused by her psoriasis. She would like to speak with someone about what she can do about the itching, and would be interested in switching to a different medication if possible. Could you please call her at her home number [phone] to discuss her options? T/C to pt: Pt reports that she developed itching on her scalp within one week of starting Tamoxifen in March. This has spread to her back and legs. (has tried lotion without relief) Denies a rash, drainage or visible changes to her skin.. She scratches her scalp so hard she develops scabs. She has tried Itchy Scalp Shampoo without relief. Today the itching spread to her ear. She has not tried anything else for itch. She is inquiring if she needs to stop the tamoxifen and try something else. Plan: Per Sally Ren PRODUCTION MINER: Please ask her to stop tamoxifen for 2 weeks and see if itching resolves. Pt verbalized agreement and understanding. This RN will call pt in 2 weeks to assess symptoms. documented in this encounter Plan of Treatment Upcoming Encounters Date Type Department Care Team (Late st Contact Info) Description 01/22/2024 10:30 AM EST Appointment Mammography/[place] [phone] Ladi Mendosa MD [facility] HEMATOLOGY/[place] [address] 01/30/2024 11:30 AM EST Office Visit Dermatology at [address] [phone] Nilda Luis MD [facility] [address] [place] [address] 02/15/2024 9:30 AM EST [place] [address] [place] [address] documented as of this encounter Visit Diagnoses Not on filedocumented in this encounter Care Teams Cryptographic Technician Relationship Specialty Start Date End Date Trinh Coates MD [address] [place] [address] PCP - General 01/11/10 documented as of this encounter
--- OUTSIDE RECORDS SUMMARY | 2023-09-07 11:28 | XMS_ITS | Encounter Summary ---
Author Organization [facility] Address [facility] [place] [address] Care Team Providers Care Brake Operator Name Role Phone Trinh Coates MD Primary Care Provider [phone] Reason for Visit * Reason Comments Radiation Follow-up Encounter Details Date Type Department Care Team (Late st Contact Info) Description 05/14/2018 11:00 AM EDT Office Visit Radiation Oncology at [address] [phone] Emily Choi MD [facility] [place] [address] Malignant neoplasm of upper-outer quadrant of left female breast, unspecified estrogen receptor status Social History Tobacco Use Types Packs/Day Years [...] Sign Reading Time Taken Comments Blood Pressure 157/97 05/14/2018 10:55 AM EDT Pulse 80 05/14/2018 10:55 AM EDT Temperature 37.2 ??C (99 ??F) 05/14/2018 10:55 AM EDT Respiratory Rate 18 05/14/2018 10:55 AM EDT Oxygen Saturation 99% 05/14/2018 10:55 AM EDT Inhaled Oxygen Concentration - - Weight 78.7 kg (173 lb 9.6 oz) 05/14/2018 10:55 AM EDT Height 152.4 cm (5') 05/14/2018 10:55 AM EDT Body Mass Index 33.9 05/14/2018 10:55 AM EDT documented in this encounter Patient Instructions * Patient Instructions* Emily Choi MD - 05/14/2018 11:00 AM EDT Your exam shows that you are healing nicely from radiotherapy & there is no evidence of cancer. You may use a straight/regular razor on your left underarm. You may expose the irradiated area to sun, but it is recommended that you apply sunscreen with an SPF of @ least #45 on the irradiated area prior to exposing it to sun. You may swim in chlorinated water. You may expose irradiated area to hot tub water. We will mail you a letter with an appointment for followup with me in 6 months. documented in this encounter Progress Notes * Emily Choi MD - 05/14/2018 11:00 AM EDT Images from the original note were not included. CC: Sched'd fu s/p xrt completion. HPI: 52 y/o f who completed xrt 2 mos ago (03/11/18) for breast ca, L, IDC, gr 3, ER+WY+, Her2 FISH neg, s/p B skin sparing mastectomies w/B free nipple grafts & L ax dissxn; immed B free flap recon attempted but could not be done due to flap arterial spasms; expanders placed; pT1c pN2a. Adjuvant chemo then given, followed by network support specialist exchange for implants. She is taking anne, started after xrt completion. ROS: Her psoriasis has started acting up, in areas of nipple grafts & along scars & on back. She plans to start triamcinolone cream for it, which Dr. Coates has rec'd & will black pickler refillof clobetasol cream when she sees Dr. Coates for fu in May. Otherwise, skin w/in irrad'd area doing ok. Energy level improving. Still w/L upper ext edema. Past Medical History: Diagnosis Date ??? Fibrocystic [...] Drain Check/Change/Remove 11/20/2017 Marcos Dey MD [facility] INTERVENTIONL RAD ??? IR MEDIPORT REMOVAL 01/25/2018 IR Mediport Removal 01/25/2018 Scooby Muñoz APRN [facility] INTERVENTIONL RAD ??? PRG EMG, LARYNX N/A 11/02/2015 FACIAL NERVE MONITORING, SETUP LARYNGEAL performed by Valentina Lucas MD at [facility] OR ??? PRO BREAST RECONSTRUC W FREE FLAP Bilateral 04/26/2017 @BREAST RECONSTRUCTION W/ FREE FLAP, SUSAN (WRVU 42.58) performed by [facility] ??? PRO BREAST RECONSTRUC W FREE FLAP, W/O IMPLANT Bilateral 12/12/2017 @BREAST RECONSTRUCTION W/ LAT DORSI FLAP,W/O IMPLANT, SUSAN (WRVU 23.36) performed by Andre Gimenez MD at [facility] OR ??? PRO BREAST RECONSTRUC W TISS EXPANDR Bilateral 04/26/2017 BREAST RECONSTRUCTION, IMMEDIATE OR DELAYED, W/ TISSUE TABLEMAN, INCLUDING SUBSEQUENT EXPANSION (WRVU 18.5) performed by Andre Gimenez MD at [facility] OR ? ? PRO DEBRIDEMENT SUBCUTANEOUS TISSUE 20 SQCM/< 06/22/2017 DEBRIDEMENT SKIN AND SUBCU, BREAST (WRVU 1.01) performed by Andre Gimenez MD at [facility] OR ??? PRO EXPLORE PARATHYROID GLANDS N/A 11/02/2015 PARATHYROIDECTOMY OR EXPLORATION OF PARATHYROID(S) performed by Valentina Lucas MD at [facility] OR ? ? PRO FULL THICK GRFT TRUNK <20 SQCM Bilateral 04/26/2017 FTSG, FREE, DIR CLOSE DONOR SITE, TRUNK, 20 SQ CM OR LESS (WRVU 9.15) performed by Andre Gimenez MD at [facility] OR ??? PRO MASTECTOMY, SIMPLE, COMPLETE Bilateral 04/26/2017 MASTECTOMY, SIMPLE, COMPLETE-SUSAN (WRVU 15.85) performed by Jolie Menendez MD at [facility] OR ??? PRO PARTIAL REMOVAL OF RIB Bilateral 04/26/2017 EXCISION OF RIB, PARTIAL (WRVU 7.26) performed by Andre Gimenez MD at [facility] OR ??? PRO REMOVE ARMPITS LYMPH NODES COMPLT Left 04/26/2017 LYMPHADENECTOMY, AXILLARY, COMPLETE (WRVU 13.87) performed by Jolie Menendez MD at [facility] OR ??? PRO REPLACE TISSUE TABLEMAN Bilateral 12/12/2017 TISSUE TABLEMAN REPLACEMENT, WITH PERMANENT PROSTHESIS, SUSAN (WRVU 8.01) performed by Andre Gimenez MD at [facility] OR ??? PRO REVISE BREAST RECONSTRUCTION Left 06/22/2017 REVISION OF RECONSTRUCTED BREAST (WRVU 10.41) performed by Andre Gimenez MD at [facility] OR ??? PRO REVISE BREAST RECONSTRUCTION Bilateral 12/12/2017 REVISION OFRECONSTRUCTED BREAST, SUSAN (WRVU 10.41) performed by Andre Gimenez MD at [facility] OR ??? PRO THYMECTOMY, TRANSCERVICAL N/A 11/02/2015 THYMECTOMY, TRANSCERVICAL APPROACH performed by Valentina Lucas MD at [facility] OR ??? SHOULDER SURGERY Left ??? UMBILICAL HERNIA REPAIR Your Medications Accurate as of 05/14/18 2:47 PM. If you have any questions, ask [...] as needed. Quantity: 60 g Refills: 3 CREAM BASE TOP Apply topically. Jeans Cream. Apply to area of radiation twice a day but no less than 2 hours before a treatment. Refills: 0 dilTIAZem 240 mg Cp24 Commonly known as: CARDIZEM CD Take 1 capsule by mouth daily. 1 capsule Refills: 0 ferrous gluconate 324 mg (37.5 mg iron) Tab Take 324 mg by mouth daily. 324 mg Refills: 0 FLUoxetine 40 mg Cap Commonly known as: PROzac daily. Refills: 0 * gabapentin 100 mg Cap Commonly known as: NEURONTIN Take 1 capsule by mouth nightly as needed. If no benefit after a week, can increase to 200mg, then 300mg at night if not too sedating. 100 mg Quantity: 60 capsule Refills: 2 * gabapentin 300 mg Cap Commonly known as: NEURONTIN take 1 capsule by mouth at bedtime Refills: 0 hydroCHLOROthiazide 25 mg Tab Commonly known as: HYDRODIURIL Take 1 tablet by mouth daily. 25 mg Quantity: 40 tablet Refills: 0 LORazepam 0.5 mg Tab Commonly known as: ATIVAN Take 1 tablet by mouth every 6 hours as needed for Anxiety. 0.5 mg Quantity: 30 tablet Refills: 0 losartan 100 mg Tab Commonly known as: COZAAR take 1 tablet by mouth once daily Refills: 0 omeprazole 40 mg Cpdr Commonly known as: PriLOSEC Take 1 capsule by mouth daily. 40 mg Quantity: 90 capsule Refills: 11 potassium chloride 20 mEq Tbsr take 3 tablets by mouth daily Refills: 0 silver sulfADIAZINE 1 % Crea Commonly known as: SILVADENE Apply at least daily and prn. 2-4 gm/day Quantity: 400 g Refills: 0 spironolactone 25 mg Tab Commonly known as: ALDACTONE 0.5 tablets daily. 0.5 tablet Refills: 0 tamoxifen 20 mg Tab Commonly known as: NOLVADEX Take 1 tablet by mouth daily. Start 2-3 weeks after radiation therapy is completed. 20 mg Quantity: 90 tablet Refills: 3 triamcinolone 0.5 % Crea Commonly known as: ARISTOCORT Apply topically 3 times daily. To hand, elbow and lower back Indications: Plaque Psoriasis Refills: 0 Vitamin D-3 5,000 unit Tab Take by [...] developed and well-nourished. No distress. BP (!) 157/97 (Patient Position: Sitting) Pulse 80 Temp 37.2 ??C (99 ??F) (Oral) Resp 18 Ht152.4 cm (5') Wt 78.7 kg (173 lb 9.6 oz) SpO2 99% BMI 33.90 kg/m?? HENT: Head: Normocephalic and atraumatic. Eyes: Conjunctivae and EOM are normal. Right eye exhibits no discharge. Left eye exhibits no discharge. No scleral icterus. Neck: Normal range of motion. Neck supple. No tracheal deviation present. No thyromegaly present. Pulmonary/Chest: Effort normal. No stridor. No respiratory distress. Abdominal: Soft. She exhibits no distension and no mass. There is no tenderness. There is no rebound and no guarding. Musculoskeletal: Normal range of motion. She exhibits edema (L arm & hand in ritika wrap). Lymphadenopathy: Head (right side): No submental, no [...] warm and dry. She is not diaphoretic. Psoriatic skin involving free nipple grafts, along scars on flanks & @ drain site scar in L midax line. Psychiatric: She has a normal mood and affect. Her behavior is normal. Judgment and thought contentnormal. A: Healing well post xrt. Psoriasis. P: Agree w/restarting triamcinolone cream & asking Dr. Coates for refill of clobetasol cream. Care of irrad'd skin discussed. Rtc 6 mos. documented in this encounter Plan of Treatment Upcoming Encounters Date Type Department Care Team (Late st Contact Info) Description 01/22/2024 10:30 AM EST Appointment Mammography/[place] [phone] Ladi Mendosa MD [facility] [place] [address] 01/30/2024 11:30 AM EST Office Visit Dermatology at [address] [place] [phone] Nilda Luis MD [facility] [address] [place] [address] 02/15/2024 9:30 AM EST Appointment [place] [phone] [place] [address] documented as of this encounter Visit Diagnoses Diagnosis Malignant neoplasm of upper-outer quadrant of left female breast, unspecified estrogen receptor status documented in this encounter Care Teams Brake Operator Relationship Specialty Start Date End Date Trinh Coates MD [facility] [address] [place] [address] PCP - General 01/11/10 documented as of this encounter
--- OUTSIDE RECORDS SUMMARY | 2023-09-07 11:28 | XMS_ITS | Encounter Summary ---
Author Organization [facility] Address [facility] [place] [address] Care Team Providers Care Vice President Tax Name Role Phone Trinh Coates MD Primary Care Provider [phone] Reason for Visit * Reason Comments Follow Up Surgery f/u josefina salvador Encounter Details Date Type Department Care Team (Late st Contact Info) Description 03/19/2018 10:00 AM EST Office [place] [address] Mali Lakhani MD [facility] [place] [address] S/P breast reconstruction, bilateral Social History Tobacco Use Types Packs/Day Years [...] Progress Notes * Mali Lakhani MD - 03/19/2018 10:00 AM EST Plastic Surgery Follow Up Note Date of surgery: 12/16/17 Procedure: Revision of [...] and closure. Debridement of umbilicus. Deflation of sewer head volume, This leaves 450 cc in the left tissue sewer head and 500 cc on the right side Date of surgery: 04/26/17 Procedure(s): Bilateral breast reconstruction with attempted SALVADOR flaps, eventual tissue sewer head placement with Ramsay Artoura 600 cc expanders placed bilaterally and filled with 450 cc of methyleneblue impregnated saline.) Complications: right parietal and visceral pleural tear, arterial flap failure bilaterally Chemotherapy: yes - last dose 11/15 Radiation: yes. On left side. HPI: Pt reports that she has been okay. She is unaccompanied for today's visit. The patient reportsshe is feeling much better. She has some soreness of her left breast. The patient finished radiation last week. She would like to discuss nipple grafts in the future. The patient wears a compression garment for her left arm lymphedema. She reports that the lymphedema has been bothersome to her. Thepatient believes that she needs to be fitted for a new compression garment because it's too tight. Examination: Patient is alert, conversant, comfortable, ambulating Moderate-severe post radiation changes to the left breast With superficial epidermolysis and proliferation Right breast is soft Nipple appears well Left breast is generally soft as well, but again significant erythema and edema Back scars are healing well No sign of infection or fluid collection Some dry areas on the back due to psoriasis Impression: Wendy Sandoval is a 52 y.o. female who was seen today for follow- up after the above procedures. Please see the procedure notes for further details. I assured her that she is healing reasonably for 1 week post-radiation, as would be expected. I explained that she should continue to heal overtime. I recommend waiting 6 months before performing nipple grafts. We may discuss the optionof a lymphovenous bypass surgery at her follow up appointment in 6 months. Plan: Follow up 6 months I, Sanket Davila, have performed the documentation for this encounter in the presence of and acting as a scribe for Mali Lakhani MD I, MALI LAKHANI MD, have performed the documentation for this encounter in the presence of and acting as a scribe for MALI LAKHANI MD. documented in this encounter Plan of Treatment Upcoming Encounters Date Type Department Care Team (Late st Contact Info) Description 01/22/2024 10:30 AM EST Appointment Mammography/DXA at [place] [phone] Ladi Mendosa MD [facility] HEMATOLOGY/[place] [address] 01/30/2024 11:30 AM EST Office Visit Dermatology at [address] [place] [phone] Nilda Luis MD [facility] DR [place] [address] 02/15/2024 9:30 AM EST [place] [phone] [place] [address] documented as of this encounter Visit Diagnoses Diagnosis S/P breast reconstruction, bilateral Breast replaced by other means documented in this encounter Care Teams Vice President Tax Relationship Specialty Start Date End Date Trinh Coates MD [facility] [address] [place] [address] PCP - General 01/11/10 documented as of this encounter
--- OUTSIDE RECORDS SUMMARY | 2023-09-07 11:28 | XMS_ITS | Encounter Summary ---
[place] [address] Care Team Providers Care Mapping Technician Name Role Phone Trinh Coates MD Primary Care Provider [phone] Reason for Visit * Reason Onset Date Comments Prior Authorization 07/26/2018 Stelara 45mg /0.5mL Encounter Details Date Type Department Care Team (Late st Contact Info) Description 07/26/2018 [place] [address] Carrington Encarnacion Prior Authorization (Stelara 45mg/0.5mL) Social History Tobacco Use Types Packs/Day Years [...] encounter Miscellaneous Notes * Telephone Encounter - Carrington Encarnacion - 07/30/2018 11:39 AM EDT [facility], Prior Authorization Denial Medication Name: Kami Case/Reference #: [id number] Denial Summary: Scanning Denial Letter into [facility] once received. Pt has a history of Malignancy, PA could not be approved due to pt having that history. Patient Notified of Denial:Will Notify Additional Information from Insurance carrier. Please see below: Scanned Denial Letter into Scan Docs in [facility] For any questions relating to this denial please reach out directly to your section???s specialty pharmacist, or the specialty pharmacy team at [facility] * Telephone Encounter - Carrington Encarnacion - 07/26/2018 1:02 PM EDT [facility], Medication Prior Authorization Patient: Wendy Sandoval Patient : 1965 Patient Address: [address] [place] [address] (home) Medication: Stelara 45mg/0.5mL SOSY Subscriber Insurance: [employer]) ([facility]) Physician: Tino Mann Sent Via: [facility] La: [id number] Ref/Case/PA#: Medication Strength Frequency Requested: Stelara 45mg/0.5mL SOSY: Inject 45mg subcutaneously on day0, then day 28, then again every 12 weeks thereafter Qty/Day Supply: 1 syringe/28 days New Start: Yes Diagnosis & ICD-10 Code: L40.9 Psoraisis documented in this encounter Plan of Treatment Upcoming Encounters Date Type Department Care Team (Late st Contact Info) Description 01/22/2024 10:30 AM EST Appointment Mammography/[place] [address] Ladi Mendosa MD [facility] DR HEMATOLOGY/[place] [address] 01/30/2024 11:30 AM EST Office Visit Dermatology at [facility] [address] [place] [phone] Nilda Luis MD [facility] [address] L[place] [address] 02/15/2024 9:30 AM EST [place] [address] [place] [address] documented as of this encounter Visit Diagnoses Not on filedocumented in this encounter Care Teams Mapping Technician Relationship Specialty Start Date End Date Trinh Coates MD [facility] [address] [facility] [address] [place] [address] PCP - General 01/11/10 documented as of this encounter
--- OUTSIDE RECORDS SUMMARY | 2023-09-07 11:28 | XMS_ITS | Encounter Summary ---
Author Organization [facility] Address [facility] [place] [address] Care Team Providers Care Machine Striper Name Role Phone Trinh Coates MD Primary Care Provider [phone] Encounter Details Date Type Department Care Team (Late st Contact Info) Description 09/03/2018 Refill Dermatology at [facility] [address] [place] [address] Tino Mann MD [facility] [address] [place] [address] Psoriasis Social History Tobacco Use Types Packs/Day [...] 01/22/2024 10:30 AM EST Appointment Mammography[place] [address] Ladi Mendosa MD [facility] HEMATOLOGY/[place] [address] 01/30/2024 11:30 AM EST Office Visit Dermatology at [facility] [address] [place] [address] Nilda Luis MD [facility] [address] [place] [address] 02/15/2024 9:30 AM EST [place] [phone] [place] [address] documented as of this encounter Visit Diagnoses Diagnosis Psoriasis Other psoriasis documented in this encounter Care Teams Machine Striper Relationship Specialty Start Date End Date Trinh Coates MD [facility] [address] [place] [address] PCP - General 01/11/10 documented as of this encounter
--- OUTSIDE RECORDS SUMMARY | 2023-09-07 11:28 | XMS_ITS | Encounter Summary ---
Author Organization [facility] [place] [address] Care Team Providers Care Preparole Counseling Aide Name Role Phone Trinh Coates MD Primary Care Provider [phone] Reason for Referral * Diagnostic Test (Routine) - Closed Specialty Diagnoses / Procedures Referred By Diamante marin Referred To Contact Radiology Diagnoses S/P breast reconstruction, bilateral Procedures NM Lymphoscintigraphy w Imaging Peripheral Edema Mali Lakhani MD [facility] [place] [address] [place] [address] Referral ID Status Reason Start Date Expiration Date V isits Requested Visits Authorized [id number] Closed Specialty Service Requested 07/24/2018 07/24/2019 1 1 Reason for Visit * Reason Comments Follow Up Surgery f/u bilat latiss Encounter Details Date Type Department Care Team (Late st Contact Info) Description 07/24/2018 11:30 AM EDT Office [place] [phone] Mali Lakhani MD [facility] [place] [address] S/P breast reconstruction, bilateral Social History Tobacco [...] Progress Notes * Mali Lakhani MD - 07/24/2018 11:30 AM EDT Images from the original note were not included. Plastic Surgery Follow Up Note Date of [...] and closure. Debridement of umbilicus. Deflation of pearl technician volume, This leaves 450 cc in the left tissue pearl technician and 500 cc on the right side Date of surgery: 04/26/17 Procedure(s): Bilateral breast reconstruction with attempted SALVADOR flaps, eventual tissue pearl technician placement with Himrod Artoura 600 cc expanders placed bilaterally and filled with 450 cc of methyleneblue impregnated saline.) Complications: right parietal and visceral pleural tear, arterial flap failure bilaterally Chemotherapy: yes - last dose 11/15 Radiation: yes. On left side. HPI: Pt reports she has been experiencing psoriasis on the incisions of her back and free nipple grafts. She is seeing her automotive product specialist today regarding the psoriasis and lesions on her chest. She isunaccompanied for today's visit. She is interested in discussing options for her left arm lymphedema, as it is uncomfortable for her and limiting her daily activities. Examination: Patient is alert, conversant, comfortable, ambulating Breasts: Breasts are soft Psoriasis along the free nipple grafts, back and chest incisions Radiation changes to the right breast persists. Slightly more full in the left breast compared to the right I do not appreciate any fluid collection Implants are soft. There is no pain Left arm: Pt continues to have lymphedema in the left arm. Left arm is in a garment. It is approximately twice the size of the right arm There is no pitting edema. Lymphedema extends from the elbow to the hand. Fingers are spared. Palpable radial pulse. 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 female who was seen today for follow- up after the above procedures. Please see the procedure notes for further details. Healing well to date. I assured the patient that the lymphedema sometimes occurs in breast cancer patents. I explained the nature of lymphedema. Lymphoscintigraphy recommended to evaluate the lymph system and lymph channels. Depending on the results of the lymphoscintigraphy I would recommend performing a lymphavenous bypass or a lymph node transfer to help with her lymphedema. The nature of this procedures were explained to the patient in detail. We discussed potential lymph node harvest sites. Her parathyroid incision may complicate lymph nodes from being harvested in the area. Reverse lymphatic mapping was also described in length with the patient. I explained that any treatment is not a cure for her disease, but may reduceheaviness and swelling in her arm. She would need to continue garment therapy after any surgical intervention. She is interested in proceeding with a lymphoscintigraphy and would like to schedule. Plan: Follow up after lymphocintrigraphy Schedule lymphocintrigaphy. ITara, have performed the documentation for this [...] 01/22/2024 10:30 AM EST Appointment Mammography/[place] [address] Ladi Mendosa MD [facility] HEMATOLOGY/[place] [address] 01/30/2024 11:30 AM EST Office Visit Dermatology at [facility] [address] [place] [address] Nilda Luis MD [facility] DR LIDIA [place] [address] 02/15/2024 9:30 AM [place] [phone] [place] [address] documented as of this encounter Results * NM Lymphoscintigraphy w [...] please contact the number below. ? Narrative 08/14/2018 7:23 PM EDT EXAMINATION: NM [...] number below. Electronically signed by: Marilin Weinberg [facility]([phone]), at 08/14/2018 7:23 PM Mali Lakhani MD IM NM ORDERABLES documented in this encounter Visit Diagnoses Diagnosis S/P breast reconstruction, bilateral Breast replaced by other means S/P breast reconstruction, bilateral Breast replaced by other means documented in this encounter Care Teams Preparole Counseling Aide Relationship Specialty Start Date End Date Trinh Coates MD [address] [place] [address] PCP - General 01/11/10 documented as of this encounter
--- OUTSIDE RECORDS SUMMARY | 2023-09-07 11:28 | XMS_ITS | Encounter Summary ---
Author Organization [facility] Address [facility] [place] [address] Care Team Providers Care Marine Pipefitter Helper Name Role Phone Trinh Coates MD Primary Care Provider [phone] Encounter Details Date Type Department Care Team (Late st Contact Info) Description 09/04/2018 Telephone Dermatology at [facility] [address] [place] [address] Tino Mann MD [facility] [address] [place] [address] Social History Tobacco Use Types Packs/Day Years [...] * Telephone Encounter - Malka Rudolph - 09/04/2018 4:54 PM EDT Patient contacted the clinic today to let us know that her Humira will be shipped to our office andshould arrive Sunday, 09/06. documented in this encounter Plan of Treatment Upcoming Encounters Date Type Department Care Team (Late st Contact Info) Description 01/22/2024 10:30 AM EST Appointment Mammography/[place] [address] Ladi Mendosa MD [facility] HEMATOLOGY/[place] [address] 01/30/2024 11:30 AM EST Office Visit Dermatology at [place] [address] [place] [phone] Nilda Luis MD [facility] [address] [place] [address] 02/15/2024 9:30 AM EST Appointment Radiology at [place] [phone] [place] [address] documented as of this encounter Visit Diagnoses Not on filedocumented in this encounter Care Teams Marine Pipefitter Helper Relationship Specialty Start Date End Date Trinh Coates MD [facility] [address] [place] [address] PCP - General 01/11/10 documented as of this encounter
--- OUTSIDE RECORDS SUMMARY | 2023-09-07 11:28 | XMS_ITS | Encounter Summary ---
Author Organization [facility] Address [facility] [place] [address] Care Team Providers Care Insulation Worker Furnace Installer Name Role Phone Trinh Coates MD Primary Care Provider [phone] Encounter Details Date Type Department Care Team (Late st Contact Info) Description 03/12/2018 Orders Only H[place] [address] Ricarda Mcclendon Social History Tobacco Use Types Packs/Day Years [...] 01/22/2024 10:30 AM EST Appointment Mammography[place] [address] Ladi Mendosa MD [facility] HEMATOLOGY/[place] [address] 01/30/2024 11:30 AM EST Office Visit Dermatology at [facility] [address] [place] [address] Nilda Luis MD [facility] [address] [place] [address] 02/15/2024 9:30 AM EST [place] [phone] [place] [address] documented as of this encounter Visit Diagnoses Not on filedocumented in this encounter Care Teams Insulation Worker Furnace Installer Relationship Specialty Start Date End Date Trinh Coates MD [facility] [address] [place] [address] PCP - General 01/11/10 documented as of this encounter
--- OUTSIDE RECORDS SUMMARY | 2023-09-07 11:28 | XMS_ITS | Encounter Summary ---
[place] [address] Care Team Providers Care Tank Carpenter Name Role Phone Trinh Coates MD Primary Care Provider [phone] Encounter Details Date Type Department Care Team (Late st Contact Info) Description 04/24/2018 Telephone [place] [address] Lakeisha Reza MD [facility] DR ENDOCRIN[place] [address] Social History Tobacco Use Types Packs/Day Years [...] encounter Miscellaneous Notes * Telephone Encounter - Lakeisha Reza MD - 04/24/2018 3:59 PM EST Called to follow up on blood pressure recordings. Left voicemail message. Lakeisha Reza PGY 4 Endocrinology Pager [phone] documented in this encounter Plan of Treatment Upcoming Encounters Date Type Department Care Team (Late st Contact Info) Description 01/22/2024 10:30 AM EST Appointment Mammography/DXA at [place] [phone] Ladi Mendosa MD [facility] HEMATOLOGY/[place] [address] 01/30/2024 11:30 AM EST Office Visit Dermatology at [facility] [address] [place] [phone] Nilda Luis MD [facility] [address] [address] 02/15/2024 9:30 AM EST Appointment Radiology at [place] [phone] [place] [address] documented as of this encounter Visit Diagnoses Not on filedocumented in this encounter Care Teams Tank Carpenter Relationship Specialty Start Date End Date Trinh Coates MD [facility] [address] [place] [address] PCP - General 01/11/10 documented as of this encounter
--- OUTSIDE RECORDS SUMMARY | 2023-09-07 11:28 | XMS_ITS | Encounter Summary ---
Author Organization [facility] Address [facility] [place] [address] Care Team Providers Care Manager Cancer Name Role Phone Trinh Coates MD Primary Care Provider [phone] Reason for Visit * Reason Comments Psoriasis * Consultation (Routine) - Specialty Diagnoses / Procedures Referred By Diamante marin Referred To Contact Dermatology Diagnoses PSORIASIS Trinh Coates MD [facility] [address] [facility] [address] [place] [address] [facility] Dermatology [address] [place] [address] Referral ID Status Reason Start Date Expiration Date V isits Requested Visits Authorized [id number] Consult, Test & Treat [facility] 07/01/2018 07/01/2019 6 6 Encounter Details Date Type Department Care Team (Late st Contact Info) Description 07/24/2018 3:30 PM EDT Office Visit Dermatology at [facility] [address] [place] [address] Tino Mann MD [facility] [address] [place] [address] High risk medications (not anticoagulants) long-term use; Psoriasis Social History Tobacco Use Types Packs/Day [...] as of this encounter Progress Notes * Tino Mann - 07/24/2018 3:30 PM EDT Images from the original note were not included. DERMATOLOGY - NEW PATIENT NOTE Date of service: 07/24/2018 Wendy Sandoval : 1965, 53 y.o. Chief Complaint: Chief Complaint Patient presents with ??? Psoriasis HPI: Wendy Sandoval is a 53 y.o. female referred by Trinh Coates with the following concerns: Here today for for her psoriasis, that has worsened since she finished her chemo and radiation for her breast cancer. .Her psoriasis was clear while on Chemo. It has effected areas where her scars are from her surgeries and where the reconstruction of her nipples are. She has been using White Stone moisture lotion. No other topicals. Hx of intermittent itch with scratching. Relevant Skin History: - Okay to leave detailed message with results? yes - Skin cancer (including type): no - psoriasis Family History: Melanoma: no Relevant Social History: - Meds: Current Outpatient Medications Medication Sig Dispense Refill ??? spironolactone (ALDACTONE) 25 mg Tablet Take [...] daily. (Patient not taking: Reported on 05/29/2018) 90 capsule 11 ??? cholecalciferol, Vitamin D3, [...] as needed. (Patient not taking: Reported on 07/24/2018) 60 g 3 ??? fluoxetine (PROZAC) 40 mg capsule daily. No current facility-administered medications for this visit. Allergies: Allergies Allergen Reactions ??? Zoloft [Sertraline] PSORIASIS FLARE Review of Systems: - General: Feels well. - Skin: No other skin concerns. Examination: - Constitutional: Patient was alert, well-appearing and in no noticeable distress. - Skin: Skin examination of the scalp, face, ears, neck, back, chest, axillae, abdomen, right and left upper extremities, right and left lower extremities, hands, feet, and buttocks was normal with the exception of the findings listed below. Genitalia not examined. - A female nurse was present and on standby during my examination. Diagnosis/Skin findings/Assessment/Plan: 1. Psoriasis-scattered erythematous plaques with micaceous scale overlying the Chest, Back, and scalp with - kebernization over prior flap sites of breast reconstruction - pink scaly papules on the hands, upper chest, over reconstructed breasts, drain sites, umbilicus, legs, right elbow BSA 5 % Plan: Sensitive Skin Care with daily Moisturizers 2x daily; avoid drying soaps; rec Dove body soap RX: Triamcinolone 0.1% BID to the affected areas till to improve texture and itch while waiting for systemic treatment approval. Pt has tried multiple topical agents in past and would like something systemic and asymptomatic -Discussed side effects and risks with chronic use including: glaucoma and cataracts with facial use and atrophy and ulceration on other sandi of the body with prolonged daily use Systemic treatment options include: MTX, cyclosporine and biologics such as Humira(Adulinumab), Stelara(ustikinumab), Cosentyx(secukinumab), and Taltz(ixekizumab) -Given pt's hx of Malignancy will avoid MTX and TNF-alpha Plan: Baseline Labs CBC, CMP, Hep B, Hep C, and quantiferon Gold for TB; if labs WNL will start ustekinumab; paperwork given to patient today. The first 2 injections are at 0 weeks and 4 weeks, then injections are every 12 weeks -ustekinumab is an antibody which blocks IL-12 and IL-23, a different molecular target in inflammation than in other biologic medications. Discussed efficacy profile of 80% responding to achieve clearance of PASI 75. - we discussed the side effect profile of ustekinumab, theoretical increase in the risk of infections and malignancy If not acheving complete response in 3 months can consider increasing to 90mg SC RX: 45mg SC injection day 0 and then in 4 weeks Maintenance dose 45mg SC Q12 weeks The following photos were obtained with patient consent: Note initiated by LOUIS CAMPOVERDE LPN. I, LOUIS CAMPOVERDE LPN, have performed the documentation for this encounter in the presence of and acting as a scribe for Tino Mann MD. I performed the services which were documented by the scribe, and I agree with the accuracy of the documentation in this encounter. Tino Mann MD Reviewed and signed by Tino Mann MD Resident in Dermatology [facility] Patient seen in conjunction with staff diamond saw operator: Section of Dermatology [facility] * Ernestine Gaines MD - 07/24/2018 3:30 PM EDT I directly supervised Dr. Tino Mann in the care of this patient. I saw and evaluated this patient with Dr. Mann. He presented the history and physical exam details to me, then we saw the patient together and I confirmed these findings. I agree with details as written. My physical examination confirms Dr. Coe's findings. The assessment and plan were formulated in discussion with me at the time of visit and I agree with them as documented. documented in this encounter Plan of Treatment Upcoming Encounters Date Type Department Care Team (Late st Contact Info) Description 01/22/2024 10:30 AM EST Appointment Mammography/[place] [phone] Ladi Mendosa MD [facility] HEMATOLOGY/[place] [address] 01/30/2024 11:30 AM EST Office Visit Dermatology at [address] [place] [address] Nilda Luis MD [facility] DR [address] [place] [address] 02/15/2024 9:30 AM EST [place] [phone] [place] [address] documented as of this encounter Procedures Procedure Name Priority Date/Time Associated Diagnosis Comments QUANTIFERON-TB GOLD Routine 07/24/2018 4 :14 PM EDT High risk medications (not anticoagulants) long-term use HEMOGRAM Routine 07/24/2018 4:14 PM EDT High risk medications (not anticoagulants) long-term use DIFFERENTIAL, AUTOMATED Routine 07/24/2018 4:14 PM EDT High risk medications (not anticoagulants) long-term use HEPATITIS C ANTIBODY Routine 07/24/2018 4:14 PM EDT High risk medications (not anticoagulants) long-term use HEPATITIS A ANTIBODY, TOTAL Routine 07/24/2018 4:14 PM EDT High risk medications (not anticoagulants) long-term use HEPATITIS B SURFACE ANTIBODY Routine 07/24/2018 4:14 PM EDT High risk medications (not anticoagulants) long-term use HEPATITIS B SURFACE ANTIGEN Routine 07/24/2018 4:14 PM EDT High risk medications (not anticoagulants) long-term use CBC (WITH DIFF) Routine 07/24/2018 4:14 PM EDT High risk medications (not anticoagulants) long-term use COMPREHENSIVE METABOLIC PANEL (NON-FASTING) Routine 07/24/2018 4:14 PM EDT High risk medications (not anticoagulants) long-term use documented in this encounter Results * (ABNORMAL) Differential, Automated (07/24/2018 4:14 PM EDT) Neutrophils % 69.5 % [facility] Neutr Abs (ANC) 6.68(H) 1.70 - 6.10 x10(3)/mc L [facility] Lymphocytes % 14.6 % [facility] Lymphocytes Abs 1.4 0.9 - 3.2 x10(3)/mc L [facility] Monocytes % 9.0 % [facility] Monocyte Abs 0.9 0.3 - 0.9 x10(3)/mc L [facility] Eosinophils % 5.3 % [facility] Eosinophils Abs 0.5(H) 0.0 - 0.4 x10(3)/mc L [facility] Basophils % 1.2 % [facility] Basophils Abs 0.1 0.0 - 0.1 x10(3)/mc L [facility] Immature Gran % 0.40 % [facility] Comment: Immature granulocytes(IG's)percentage and absolute count will include metamyelocytes, myelocytes, and promyelocytes. Blood smears from CBCs yielding IG's will be scanned manually for concordance. If this scan disagrees with the automated IG or if promyelocytes are noted, a manual differential will be performed. Nova Gran Abs 0.04 0.00 - 0.04 x10(3)/mc L [facility] Blood specimen (specimen) 07/24/2018 4:14 PM EDT 07/24/2018 5:55 PM EDT Narrative Resulting Agency Comment Spec In Lab Tino Mann MD HEMATOLOGY ORDERABLE S [facility] [place] [place] [address] * (ABNORMAL) Hemogram (07/24/2018 4:14 PM EDT) WBC 9.6(H) 4.0 - 9.5 x10(3)/[facility] RBC 3.83(L) 4.00 - 5.21 x10(6)/[facility] Hemoglobin 11.8 11.7 - 15.5 gm/dL [facility] Hematocrit 36.5 35.7 - 45.8 % [facility] MCV 95.3(H) 82.6 - 94.[address] [facility] MCH 30.8 27.1 - 32.[address] [facility] MCHC 32.3 31.7 - 35.0 gm/dL [facility] Platelets 338 145 - 357 x10(3)/[facility] LABORATORY RDWSD 50.1(H) 37.0 - 46.0 [facility]AT[facility] RDWCV 14.3(H) 11.5 - 14.1 % [facility] MPV 9.5 7.6 - 12.9 [facility]ATORY nRBC % Auto 0.0 % [facility] nRBC Abs Auto 0.000 0.000 - 0.000 x10(3)/mcL [facility] Blood specimen (specimen) 07/24/2018 4:14 PM EDT 07/24/2018 5:55 PM EDT Narrative Resulting Agency Comment Spec In Lab Tino Mann MD HEMATOLOGY ORDERABLE S Performing Organization Address City/[facility]/ZIP Co de Phone Number [facility] [place] [address] * Hepatitis C Antibody (07/24/2018 4:14 PM EDT) Hepatitis C Ab Negative Negative [facility] Blood specimen (specimen) 07/24/2018 4:14 PM EDT 07/24/2018 6:02 PM EDT Narrative Resulting Agency Comment Spec In Lab Ernestine Gaines MD IMMUNOLOGY ORDERABLE S Performing Organization Address [facility]/ZIP Co de Phone Number [facility] [place] [address] * Hepatitis B Surface Antigen (07/24/2018 4:14 PM EDT) HepB Surface Ag Negative Negative [facility] Blood specimen (specimen) 07/24/2018 4:14 PM EDT 07/24/2018 6:02 PM EDT Narrative Resulting Agency Comment Spec In Lab Ernestine Gaines MD CHEMISTRY ORDERABLES Performing Organization Address [facility] Co de Phone Number [facility] [place] [address] * Hepatitis B Surface Antibody (07/24/2018 4:14 PM EDT) HepB Surface Ab Quant <3.5 IU/L [facility] Comment: HepB Surface Ab Quant: Unvaccinated: < 8.5 IU/L Vaccinated: > 11.5 IU/L HepB Surface Ab Negative [facility] Comment: Patient is presumed to be not vaccinated or immune to HBV infection. Expected Results: Vaccinated: Positive Unvaccinated: Negative Blood specimen (specimen) 07/24/2018 4:14 PM EDT 07/24/2018 6:02 PM EDT Narrative Resulting Agency Comment Spec In Lab Ernestine Gaines MD IMMUNOLOGY ORDERABLE S Performing Organization Address City/[facility]/ZIP Co de Phone Number [facility] [place] [address] * Hepatitis A Antibody, Total (07/24/2018 4:14 PM EDT) Hepatitis A Ab Total Negative Negative [facility] Blood specimen (specimen) 07/24/2018 4:14 PM EDT 07/24/2018 6:02 PM EDT Narrative Resulting Agency Comment Spec In Lab Ernestine Gaines MD IMMUNOLOGY ORDERABLE S Performing Organization Address [facility] Co de Phone Number [facility] [place] [address] * QuantiFERON-TB Gold (07/24/2018 4:14 PM EDT) QFT Nil 0.040 IU/mL [facility] QFT TB Ag1-Nil 0.000 IU/mL [facility] QFT TB Ag2-Nil -0.020 IU/mL [facility] QFT Mitogen-Nil >10.000 IU/mL [facility] Quantiferon TB Negative Negative [facility] Quantiferon TB Interp M. tuberculosis [...] affect immune function, or other immunological factors. [facility] Comment: The performance of the QFT-Plus [...] when interpreting QFT-Plus results. Blood specimen (specimen) 07/24/2018 4:14 PM EDT 07/25/2018 10:47 AM EDT Narrative Resulting Agency Comment Spec In Lab Ernestine Gaines MD CHEMISTRY ORDERABLES [facility] [place] [address] * (ABNORMAL) Comprehensive metabolic panel (non-fasting) (07/24/2018 4:14 PM EDT) Glucose Lvl 141 65 - 199 mg/dL [facility] Comment:Diabetes: >=200 mg/d L plus symptoms BUN 29(H) 8 - 18 mg/dL [facility] Creatinine 1.27(H) 0.70 - 1.20 mg/dL [facility] Sodium 143 135 - 145 mmol/L [facility] Potassium 3.8 3.5 - 5.0 mmol/L [facility] Comment: Please note: ??Patients with WBC >100,000 may have falsely elevated Potassium levels. ??For accurate Potassium quantification in these patients send serum separator tube (gold top) for subsequent determinations. ??Contact the Clinical Chemistry Laboratory if there are any questions. Chloride 102 98 - 107 mmol/L [facility] CO2 27 22 - 31 mmol/L [facility] Anion Gap 14 5 - 15 mmol/L [facility] Calcium 9.1 8.5 - 10.5 mg/dL [facility] Total Protein 6.7 6.1 - 8.0 gm/dL [facility] Albumin 3.9 3.2 - 5.2 gm/dL [facility] AST 21 0 - 30 unit/L [facility] ALT 21 0 - 30 unit/L [facility] Alk Phos 79 40 - 104 unit/L [facility] Total Bilirubin 0.5 0.2 - 1.3 mg/dL [facility] Estimated GFR 47(L) >=60 mL/min/1. 73 m?? [facility] Comment: The eGFR was calculated using the CKD-EPI equation. As with all creatinine based estimates of kidney function, eGFR values calculated with the CKD-EPI equation are not accurate in patients with acute kidney failure, extremes of body mass or the acutely ill. http://Getourguide/[facility] eGFR 55(L) >=60 mL/min/1. 73 m?? [facility] Comment: The eGFR was calculated using the CKD-EPI equation. As with all creatinine based estimates of kidney function, eGFR values calculated with the CKD-EPI equation are not accurate in patients with acute kidney failure, extremes of body mass or the acutely ill. http://Getourguide/[facility] Blood specimen (specimen) 07/24/2018 4:14 PM EDT 07/24/2018 6:02 PM EDT Narrative Resulting Agency Comment Spec In Lab Ernestine Gaines MD CHEMISTRY ORDERABLES [facility] [place] [place] [address] documented in this encounter Visit Diagnoses Diagnosis High risk medications (not anticoagulants) long-term use Encounter for long-term (current) use of other medications Psoriasis Other psoriasis documented in this encounter Care Teams Manager Cancer Relationship Specialty Start Date End Date Trinh Coates MD [address] [place] [address] PCP - General 01/11/10 documented as of this encounter
--- OUTSIDE RECORDS SUMMARY | 2023-09-07 11:28 | XMS_ITS | Encounter Summary ---
Author Organization [facility] Address [facility] [address] [facility] [place] [address] Care Team Providers Care Veneer Taping Machine Offbearer Name Role Phone Trinh Coates MD Primary Care Provider [phone] Encounter Details Date Type Department Care Team (Late st Contact Info) Description 03/11/2018 Notes Only Radiation Oncology at [address] [address] Emily Choi MD [facility] [place] [address] Social History Tobacco Use Types Packs/Day [...] as of this encounter Progress Notes * Emily Choi MD - 03/11/2018 11:59 PM EST Wendy M Lori has completed xrt for breast ca, L, IDC, gr 3, ER+ND+, Her2 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 Adjuvantchemo then given, followed by lining setter exchange for implants. The course of xrt is summarized as follows: Treatment was given from 01/29/18 to 03/11/18. 50.4 Gy in 28 fxs was given to L supraclavicular fossa, L axilla & L reconstructed breast/chestwall with 6 &10 MV Xray external beam using deep inspiration breath hold (DIBH). 3D xrt used. The course of xrt was tolerated well, w/the expected side effect of skin reaction within irradiatedarea managed w/aquaphor ointment, skintegrity, mepilex-lite, radiagel sheets, skintegrity gauze dressing, saline soaks & silvadene. Exam near completion of xrt showed folliculitis UIQ L breast & on L posterior shoulder, multiple (4) 0.5-1.0 cm erythematous round lesions on L lateral chest wall in mid axillary line w/most inferior 2 lesions @ drain site scars & the most inferior of the2 being the largest of the 4 lesions & crusted. Mild to moderate erythema of irradiated area w/minimal dry desquamation. L arm & hand in ritika wrap. FU w/me in 1-2 mos. documented in this encounter Plan of Treatment Upcoming Encounters Date Type Department Care Team (Late st Contact Info) Description 01/22/2024 10:30 AM EST Appointment Mammography/[place] [address] Ladi Mendosa MD [facility] DR HEMATOLOGY/[place] [address] 01/30/2024 11:30 AM EST Office Visit Dermatology at [place] [address] [place] [address] Nilda Luis MD [facility] DR [address] [place] [address] 02/15/2024 9:30 AM EST [place] [phone] [place] [address] documented as of this encounter Visit Diagnoses Not on filedocumented in this encounter Care Teams Veneer Taping Machine Offbearer Relationship Specialty Start Date End Date Trinh Coates MD [facility] [address] [facility] [place] [address] PCP - General 01/11/10 documented as of this encounter
--- OUTSIDE RECORDS SUMMARY | 2023-09-07 11:28 | XMS_ITS | Encounter Summary ---
Author Organization [facility] Address [facility] [place] [address] Care Team Providers Care Tactical Intelligence Officer Name Role Phone Trinh Coates MD Primary Care Provider [phone] Encounter Details Date Type Department Care Team (Late st Contact Info) Description 09/02/2018 Telephone Dermatology at [facility] [address] [place] [address] Tino Mann MD [facility] [address] [place] [address] Social History Tobacco Use Types Packs/Day Years [...] Miscellaneous Notes * Telephone Encounter - Lakeisha Parks - 09/02/2018 3:14 PM EDT I received a phone call from Wendy Sandoval stating she called the [facility] specialty pharmacy in regards to her stelara medication and they had no record of receiving anything from us. I noticed that a script was sent on 08/16. I told Wendy I would send a message to Dr. Mann to see if he could follow up on this. The best number to reach her back is [phone] and it is ok to leave a detailedmessage. documented in this encounter Plan of Treatment Upcoming Encounters Date Type Department Care Team (Late st Contact Info) Description 01/22/2024 10:30 AM EST Appointment Mammography/[place] [address] Ladi Mendosa MD [facility] HEMATOLOGY/[place] [address] 01/30/2024 11:30 AM EST Office Visit Dermatology at [facility] [address] [place] [address] Nilda Luis MD [facility] [address] LIDIA [place] [address] 02/15/2024 9:30 AM EST Appointment [place] [address] [place] [address] documented as of this encounter Visit Diagnoses Not on filedocumented in this encounter Care Teams Tactical Intelligence Officer Relationship Specialty Start Date End Date Trinh Coates MD [facility] [address] [place] [address] PCP - General 01/11/10 documented as of this encounter
--- OUTSIDE RECORDS SUMMARY | 2023-09-07 11:28 | XMS_ITS | Encounter Summary ---
Author Organization [facility] Address [facility] [place] [address] Care Team Providers Care Money Room Teller Name Role Phone Trinh Coates MD Primary Care Provider [phone] Encounter Details Date Type Department Care Team (Late st Contact Info) Description 09/09/2018 Telephone Dermatology at [facility] [address] [place] [address] Tino Mann MD [facility] DR [address] [place] [address] Social History Tobacco Use Types Packs/Day Years [...] * Telephone Encounter - Lakeisha Parks - 09/09/2018 1:14 PM EDT I spoke with Cosme to schedule delivery for Wendy Sandoval's stelara medication. It will be delivered to us 09/10/18. documented in this encounter Plan of Treatment Upcoming Encounters Date Type Department Care Team (Late st Contact Info) Description 01/22/2024 10:30 AM EST Appointment Mammography/[place] [address] Ladi Mendosa MD [facility] HEMATOLOGY/[place] [address] 01/30/2024 11:30 AM EST Office Visit Dermatology at [place] [address] [place] [address] Nilda Luis MD [facility] [address] [place] [address] 02/15/2024 9:30 AM EST Appointment [place] [address] [place] [address] documented as of this encounter Visit Diagnoses Not on filedocumented in this encounter Care Teams Money Room Teller Relationship Specialty Start Date End Date Trinh Coates MD [facility] [address] [place] [address] PCP - General 01/11/10 documented as of this encounter
--- OUTSIDE RECORDS SUMMARY | 2023-09-07 11:28 | XMS_ITS | Encounter Summary ---
Author Organization [facility] Address [facility] [place] [address] Care Team Providers Care Systems Tester Name Role Phone Trinh Coates MD Primary Care Provider [phone] Encounter Details Date Type Department Care Team (Late st Contact Info) Description 05/27/2018 Orders [place] [address] Lakeisha Reza MD [facility] [place] [address] Social History Tobacco Use Types Packs/Day Years [...] 01/22/2024 10:30 AM EST Appointment Mammography[place] [address] Ladi Mendosa MD [facility] [place]EMATOLOGY/[place] [address] 01/30/2024 11:30 AM EST Office Visit Dermatology at [facility] [address] [place] [address] Nilda Luis MD [facility] [address] [address] 02/15/2024 9:30 AM [place] [address] [place] [address] documented as of this encounter Visit Diagnoses Not on filedocumented in this encounter Care Teams Systems Tester Relationship Specialty Start Date End Date Trinh Coates MD [facility] [address] [address] PCP - General 01/11/10 documented as of this encounter
--- OUTSIDE RECORDS SUMMARY | 2023-09-07 11:28 | XMS_ITS | Encounter Summary ---
Author Organization [facility] Address [facility] [place] [address] Care Team Providers Care Urology Physician Name Role Phone Trinh Coates MD Primary Care Provider [phone] Encounter Details Date Type Department Care Team (Late st Contact Info) Description 03/13/2018 Telephone Radiation Oncology at [address] [address] Nracisa Hair, RN Social History Tobacco Use Types Packs/Day [...] Telephone Encounter - Narcisa Hair RN - 03/13/2018 3:33 PM EST Radiation Oncology Nurse Telephone Note [facility]- [place], [place] ----- Message from Jimbo Lei sent at 03/13/2018 3:18 PM EST ----- Regarding: Pt has oozing sore under breast- please call back Contact: Good Afternoon, Wendy called and said that she has a sore area under her breast that has now started to ooze. Please give her a call back at [phone]. Thanks, Jimbo 03/13/18 3:35 Telephone to pt at above number . She confirms that she is having drainage under her treated breast. Is is a yellowish green. She reports some stinging in this area that she is taking tylenol for that and ,for the most part, it is helping her pain. She is applying silvadene to this area and also her axilla. She is also doing saline soaks occasionally about QOD. She also has the mepliex pads that she is using. She knows not to apply Jeans cream to opened skin. She is not wearing a bra and is keeping the area exposed to the air. She denies feeling feverish. Intervention: I reassured her that this is an anticipated side effect of the treatment. She was instructed to call clinic if this gets worse, or if she develops a fever which could indicate infection. Patient verbalized understanding of these instructions and expressed appreciation for this call. documented in this encounter Plan of Treatment Upcoming Encounters Date Type Department Care Team (Late st Contact Info) Description 01/22/2024 10:30 AM EST Appointment Mammography[place] [address] Ladi Mendosa MD [facility] HEMATOLOGY/[place] [address] 01/30/2024 11:30 AM EST Office Visit Dermatology at [address] [address] Nilda Luis MD [facility] DR [address] [place] [address] 02/15/2024 9:30 AM EST [place] [address] [place] [address] documented as of this encounter Visit Diagnoses Not on filedocumented in this encounter Care Teams Urology Physician Relationship Specialty Start Date End Date Trinh Coates MD [facility] [address] [place] [address] PCP - General 01/11/10 documented as of this encounter
--- OUTSIDE RECORDS SUMMARY | 2023-09-07 11:28 | XMS_ITS | Encounter Summary ---
Author Organization [facility] Address [facility] [place] [address] Care Team Providers Care Public Area Supervisor Name Role Phone Trinh Coates MD Primary Care Provider [phone] Encounter Details Date Type Department Care Team (Late st Contact Info) Description 08/14/2018 Telephone Dermatology at [facility] [address] [place] [address] Tino Mann MD [facility] DR [address] [place] [address] Social History Tobacco Use Types Packs/Day Years [...] * Telephone Encounter - Chuyita Henry - 08/23/2018 1:16 PM EDT Called Wendy Sandoval to notify that RX was sent. * Telephone Encounter - Chuyita Henry - 08/20/2018 2:24 PM EDT Received called stating that the medication needs to be sent to [facility]. * Telephone Encounter - Ailyn Kee - 08/14/2018 3:49 PM EDT Wendy M Juanmoreno's ustekinumab (STELARA) 45 mg/0.5 mL Syringe script has been approved starting today until August 15, 2019. The approval number is [id number]. Ailyn Kee, Clinical Computerized Mill Mill Recorder documented in this encounter Plan of Treatment Upcoming Encounters Date Type Department Care Team (Late st Contact Info) Description 01/22/2024 10:30 AM EST Appointment Mammography/[place] [address] Ladi Mendosa MD [facility] HEMATOLOGY/[place] [address] 01/30/2024 11:30 AM EST Office Visit Dermatology at [address] [address] Nilda Luis MD [facility] [place] [address] 02/15/2024 9:30 AM EST Appointment [place] [address] [place] [address] documented as of this encounter Visit Diagnoses Not on filedocumented in this encounter Care Teams Public Area Supervisor Relationship Specialty Start Date End Date Trinh Coates MD [facility] [address] [place] [address] PCP - General 01/11/10 documented as of this encounter
--- OUTSIDE RECORDS SUMMARY | 2023-09-07 11:28 | XMS_ITS | Encounter Summary ---
Author Organization [facility] [place] [address] Care Team Providers Care Production Potter Name Role Phone Trinh Coates MD Primary Care Provider [phone] Reason for Referral * Diagnostic Test (Routine) - Closed Specialty Diagnoses / Procedures Referred By Contac t Referred To Contact Radiology Diagnoses Primary hyperaldosteronism Procedures IR Adrenal Vein Sampling Marcos Dey MD [facility] DIAGNOSTIC [place] [address] [place] [address] Referral ID Status Reason Start Date Expiration Date V isits Requested Visits Authorized [id number] Closed Specialty Service Requested 06/26/2018 06/26/2019 1 1 Reason for Visit * Diagnostic Test (Routine) - Closed Specialty Diagnoses / Procedures Referred By Contac t Referred To Contact Radiology Diagnoses Primary hyperaldosteronism Procedures IR Adrenal Vein Sampling Marcos Dey MD [facility] [place]NOSTIC [place] [address] [facility] [place] [address] Referral ID Status Reason Start Date Expiration Date V isits Requested Visits Authorized [id number] Closed Specialty Service Requested 06/26/2018 06/26/2019 1 1 Encounter Details Date Type Department Care Team (Latest Contact Info) Description 07/12/2018 6:27 AM EDT - 07/12/2018 11:59 PM EDT Hospital Encounter Radiology at [facility] [place] [address] Marcos Dey MD [facility] DR DIAGNOSTIC [place] [address] Pre-op testing; Hypertension, unspecified type; Primary hyperaldosteronism Discharge Disposition: Home Social History Tobacco Use [...] Sign Reading Time Taken Comments Blood Pressure 159/104 07/12/2018 10:15 AM EDT Pulse 92 07/12/2018 9:50 AM EDT Temperature 36 ??C (96.8 ??F) 07/12/2018 10:01 AM EDT Respiratory Rate 16 07/12/2018 10:15 AM EDT Oxygen Saturation 95% 07/12/2018 10:15 AM EDT Inhaled Oxygen Concentration - - Weight - - Height - - Body Mass Index - - documented in this encounter Discharge Instructions * Discharge Instructions* Madisyn Licea RN - 07/12/2018 10:11 AM EDT [facility] Vascular and Interventional Radiology Discharge Instructions For Your Puncture Site Activity and Diet: ??? Go Home and rest quietly for the remainder of the day. You may resume your normal activities tomorrow. ??? Resume your usual diet after the procedure. [...] drainage. When to call your healthcare provider: ??? If you notice bleeding or a bulge from the puncture site, you should apply firm pressure over the site for 10-15 minutes, keeping the site covered and call your doctor. If you are still bleeding after 10-15 minutes, reapply pressure, and have someone drive you to the nearest Emergency Department, or call 911. ??? If you develop pain, redness, drainage or swelling at or around the puncture site. ??? If you develop fever equal to or greater than 101F and/or shaking chills. When to call the Interventional Radiology Department: Please call with any questions or concerns. If it is during regular office hours, please call [phone]. If it is after regular office hours, or on weekends or holidays, please call [phone] and ask to speak to the Employee Relations Advisor application integration engineer for Interventional Radiology. You have received medication [...] ferrous gluconate 324 mg (37.5 mg iron) TabletIndications:Protein uria,Essential hypertension,Hypercalcemi a Take 324 mg by mouth daily. fluoxetine (PROZAC) 40 mg capsule Take 40 mg by mouth daily. 10/31/2012 ibuprofen (Motrin) 400 mg tablet Take 1 tab q 6 hrs daily as needed 11/15/2015 potassium chloride 20 mEq Tablet Sustained Release 1 tablet daily. 0 09/17/2017 07/12/2020 atorvastatin (LIPITOR) 20 mg Tablet Take 1 tablet by mouth daily. 0 03/02/2017 07/12/2020 triamcinolone (ARISTOCORT) 0.5 % CreamIndications:plaque psoriasis Apply topically 3 times daily. To hand, elbow and lower back Indications: Plaque Psoriasis 07/24/2018 DILTiazem (CARDIZEM CD) 240 mg Capsule, Sust. Release 24 hr Take 1 capsule by mouth daily. 07/26/2015 10/17/2018 clobetasol (TEMOVATE) 0.05 % CreamIndications:Psoriasi s Apply to affected areas on knees, elbows and hands twice daily for two week cycles as needed. 60 g 3 04/16/2014 10/20/2019 ferrous sulfate (FeroSul) 325 mg (65 mg iron) tablet 1 tablet. 01/26/2014 05/15/2023 omeprazole (PriLOSEC OTC) [address] tablet 1 CAP daily 03/27/2014 05/15/2023 amLODIPine (NORVASC) 10 mg Tablet Take 10 mg by mouth daily. 01/23/2019 tamoxifen (NOLVADEX) 20 mg TabletIndications:Maligna nt neoplasm of upper-outer quadrant of left breast in female, estrogen receptor positive Take 1 tablet by mouth daily. 90 tablet 3 05/29/2018 12/06/2018 gabapentin (NEURONTIN) 300 mg CapsuleIndications:Malign ant neoplasm of upper-outer quadrant of left breast in female, estrogen receptor positive,Neuropathy due to chemotherapeutic drug Take 1 capsule by mouth 3 times daily. 90 capsule 3 05/29/2018 07/25/2022 hydroCHLOROthiazide (HYDRODIURIL) 25 mg Tablet Take 1 tablet by mouth daily. 40 tablet 05/27/2018 07/24/2018 spironolactone (ALDACTONE) 25 mg Tablet 0.5 tablets daily. 0 02/06/2018 07/23/2018 omeprazole (PRILOSEC) 40 mg Capsule, Delayed Release(E.C.) Take 1 capsule by mouth daily. 90 capsule 11 08/23/2017 08/23/2018 acetaminophen (TYLENOL) 325 mg Tablet Take 2 tablets by mouth every 4 hours as needed for Pain. 11/03/2015 07/25/2022 documented as of this encounter Progress Notes * Jadyn Hammer RN - 07/09/2018 2:31 PM EDT [facility] Name: WENDY SANDOVAL Date of : 1965 AGE: 53 y.o. [address]: [address] [place] [id number] (home) [phone] (work) Mobile: Telephone Information: Referring Provider: Marcos Dey REASON FOR VISIT: Adrenal vein sampling Order Questions Answers Where will study be performed? [facility] [120] Reason for exam and clinical history: primary hyperaldosteronism Exam/Procedure requested: bilat adrenal vein sample Is the patient ? Unknown Does patient require sedation? IV Please ensure a History and Physical exam is completed within 30 days of the Radiology Procedure OK Is the patient on anticoagulant / anitplatelet therapy ? No Plan: Bilateral adrenal vein sampling. Patient to remain off spironolactone until after procedure. ? Labs: [per IR/CT protocol] Prophylactic antibiotic: [none] Medications to discontinue (and when): [none] Patient Position: [supine] Access site: Right CFV Sedation Plan : Mod Conscious Discharge Plan: home Allergies Allergen Reactions ??? Zoloft [Sertraline] PSORIASIS FLARE Pertinent PMH: Patient Active Problem List Diagnosis Code ??? Hypertension I10 ??? Depression F32.9 ??? Obstructive sleep apnea (adult) (pediatric) G47.33 ??? OA (osteoarthritis) M19.90 ??? Overweight(278.02) E66.3 ??? Hyperparathyroidism E21.3 ??? Malignant neoplasm of upper-outer quadrant of left breast in female, estrogen receptor netntjpbV20.412, Z17.0 ??? S/P breast reconstruction, bilateral Z98.890 ??? Surgery follow-up Z09 ??? Abdominal wound dehiscence T81.30XA ??? Hypokalemia E87.6 ??? Bacterial conjunctivitis H10.9 ??? Seroma of breast N64.89 ??? History of breast cancer Z85.3 Pertinent PSH: Past Surgical History: Procedure Laterality Date ??? BREAST BIOPSY Right 11/01 ??? SECTION x 2 ??? HAND SURGERY Right ??? IR DRAIN CHECK/CHANGE/REMOVE 11/20/2017 IR Drain Check/Change/Remove 11/20/2017 Marcos Dey MD [facility] ??? IR MEDIPORT REMOVAL 01/25/2018 IR Mediport Removal 01/25/2018 Scooby Muñoz, [facility] ??? PRG EMG, LARYNX N/A 11/02/2015 FACIAL NERVE MONITORING, SETUP LARYNGEAL performed by Valentina Lucas MD at [facility] OR ??? PRO BREAST RECONSTRUC W FREE FLAP Bilateral 04/26/2017 @BREAST RECONSTRUCTION W/ FREE FLAP, SUSAN (WRVU 42.58) [facility] ??? PRO BREAST RECONSTRUC W FREE FLAP, W/O IMPLANT Bilateral 12/12/2017 @BREAST RECONSTRUCTION W/ LAT DORSI FLAP,W/O IMPLANT, SUSAN (WRVU 23.36) performed by Andre Gimenez MD at [facility] OR ??? PRO BREAST RECONSTRUC W TISS EXPANDR Bilateral 04/26/2017 BREAST RECONSTRUCTION, IMMEDIATE OR DELAYED, W/ TISSUE LITHOGRAPH PRESS FEEDER, INCLUDING SUBSEQUENT EXPANSION (WRVU 18.5) performed by Andre Gimenez MD at [facility] OR ? ? PRO DEBRIDEMENT SUBCUTANEOUS TISSUE 20 SQCM/< 06/22/2017 DEBRIDEMENT SKIN AND SUBCU, BREAST (WRVU 1.01) performed by Andre Gimenez MD at [facility] OR ??? PRO EXPLORE PARATHYROID GLANDS N/A 11/02/2015 PARATHYROIDECTOMY OR EXPLORATION OF PARATHYROID(S) performed by Valentina Lucas MD at [facility] OR ? ? PRO FULL THICK GRFT TRUNK <20 SQCM Bilateral 04/26/2017 FTSG, FREE, DIR CLOSE DONOR SITE, TRUNK, 20 SQ CM OR LESS (WRVU 9.15) performed by Andre Gimenez MD at [facility] OR ??? PRO MASTECTOMY, SIMPLE, COMPLETE Bilateral 04/26/2017 MASTECTOMY, SIMPLE, COMPLETE-SUSAN (WRVU 15.85) performed by Jolie Menendez MD at [facility] OR ??? PRO PARTIAL REMOVAL OF RIB Bilateral 04/26/2017 EXCISION OF RIB, PARTIAL (WRVU 7.26) performed by Andre Gimenez MD at [facility] OR ??? PRO REMOVE ARMPITS LYMPH NODES COMPLT Left 04/26/2017 LYMPHADENECTOMY, AXILLARY, COMPLETE (WRVU 13.87) performed by Jolie Menendez MD at [facility] OR ??? PRO REPLACE TISSUE LITHOGRAPH PRESS FEEDER Bilateral 12/12/2017 TISSUE LITHOGRAPH PRESS FEEDER REPLACEMENT, WITH PERMANENT PROSTHESIS, SUSAN (WRVU 8.01) performed by Andre Gimenez MD at [facility] OR ??? PRO REVISE BREAST RECONSTRUCTION Left 06/22/2017 REVISION OF RECONSTRUCTED BREAST (WRVU 10.41) performed by Andre Gimenez MD at [facility] OR ??? PRO REVISE BREAST RECONSTRUCTION Bilateral 12/12/2017 REVISION OFRECONSTRUCTED BREAST, SUSAN (WRVU 10.41) performed by Andre Gimenez MD at [facility] OR ??? PRO THYMECTOMY, TRANSCERVICAL N/A 11/02/2015 THYMECTOMY, TRANSCERVICAL APPROACH performed by Valentina Lucas MD at [facility] OR ??? SHOULDER SURGERY Left ??? UMBILICAL HERNIA REPAIR Date/Procedure ?Med's given/comments 04/30/17 Rt breast drain exchange and repositioning, [...] R drain removed. Fentanyl 50 mcg IV? [id number] Left breast aspiration/ 30 ml Fentanyl 100 [...] versed 4 mg IV andfentanyl 200 mcg ?To procedure room 3 via stretcher. Onto table supine (position) All monitors, O2, safety strap inplace. Med's per protocol. Laboratory Results: Lab Results Component Value Date INR 1.1 11/30/2017 Lab Results Component Value Date CREATININE 1.35 (H) 12/15/2017 Lab Results Component Value Date K 3.8 12/15/2017 Lab Results Component Value Date PLATELET 339 12/15/2017 Medications: Prior to Admission medications Medication Sig Start Date End Date Taking? Authorizing Provider tamoxifen (NOLVADEX) 20 mg Tablet Take 1 tablet by mouth daily. 05/29/18 Josias Barnett MD gabapentin (NEURONTIN) 300 mg Capsule Take 1 capsule by mouth 3 times daily. 05/29/18 Josias Barnett MD hydroCHLOROthiazide (HYDRODIURIL) 25 mg Tablet Take 1 tablet by mouth daily. 05/27/18 05/27/19 Lakeisha Reza MD spironolactone (ALDACTONE) 25 mg Tablet 0.5 tablets daily. 02/06/18 PROVIDER, HISTORICAL losartan (COZAAR) 100 mg Tablet take 1 tablet by mouth once daily 10/09/17 PROVIDER, HISTORICAL potassium chloride 20 mEq Tablet Sustained Release take 3 tablets by mouth daily 09/17/17 PROVIDER, HISTORICAL omeprazole (PRILOSEC) 40 mg Capsule, Delayed Release(E.C.) Take 1 capsule by mouth daily. Patient not taking: Reported on 05/29/2018 08/23/17 08/23/18 Gustavo Mota MD cholecalciferol, Vitamin D3, (VITAMIN D-3) 5,000 unit Tablet Take by mouth. PROVIDER, HISTORICAL atorvastatin (LIPITOR) 20 mg Tablet Take 1 tablet by mouth daily. 03/02/17 PROVIDER, HISTORICAL triamcinolone (ARISTOCORT) 0.5 % Cream Apply topically 3 times daily. To hand, elbow and lower backIndications: Plaque Psoriasis PROVIDER, HISTORICAL acetaminophen (TYLENOL) 325 mg Tablet Take 2 tablets by mouth every 4 hours as needed for Pain. 11/03/15 Nathaly Saenz APRN DILTiazem (CARDIZEM CD) 240 mg Capsule, Sust. Release 24 hr Take 1 capsule by mouth daily. 07/26/15 PROVIDER, HISTORICAL ferrous gluconate 324 mg (37.5 mg iron) Tablet Take 324 mg by mouth daily. PROVIDER, HISTORICAL clobetasol (TEMOVATE) 0.05 % Cream Apply to affected areas on knees, elbows and hands twice daily for two week cycles as needed. 04/16/14 Ernestine Gaines MD fluoxetine (PROZAC) 40 mg capsule daily. 10/31/12 PROVIDER, HISTORICAL documented in this encounter H&P Notes * Doreen Mcgovern MD - 07/12/2018 6:56 AM EDT Images from the original note were not included. FOCUSED H&P and PRE-PROCEDURE IR NOTE: ?? PCP: Trinh Coates MD Referring Physician: Lakeisha Reza MD ?? Planned Procedure: Adrenal vein sampling Procedure Indication: hyperaldosteronism ?? Presenting Diagnosis/ Complaint: Wendy Sandoval is a 53 y.o. 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 Lab studies show normal cortisol, but she has renin of <0.6 and aldosterone of 21 ng/dl. Hypertension relatively contro lled, but with K 2.8. To evaluate for unilateral aldosterone production, adrenal vein sampling is desired. ?? HPI: diagnosed with toxemia during her [id number], but hypertension persisted after delivery. treated with HCTZ and required potassium replacement.??She initially had good BP control, but later required the addition of??Valsartan, changed to losartan. ?? After diagnosed with breast ca on screening mammogram 03/21/17, her HCTZ and??potassium were discontinued. She then developed severe leg cramping was found to have K of 1.8. 03/09/18 was taking spironolactone 12.5 mg daily, potassium chloride 20 meq BID, and losartan 100 mgdaily. Peripheral edema resolved with initiation of spironolactone.??MRI abdomen 03/2017 in stagingfor breast ca demonstrated normal adrenal glands. 12/16/17 had revision of bilat reconstructed breasts. Completed XRT 03/09. ?? Ms. Sandoval also has a history of hyperparathyroidism and was referred to Dr. Green by her PCP 10/15/15 for Ca of 10.9 c/b nephrolithiasis. Localization studies including ultrasound and sestamibi scan indicated a right lower??parathyroid abnormality??and she had 3 gland parathyroidectomy on 6. Interestingly, both father and sister had nephrolithasis and primary hyperparathyroidism as well.? Past Medical/Surgical History: Patient Active Problem List [...] breast determined by biopsy ? Hyperlipidemia ? Impaired fasting glucose ? Malignant neoplasm of upper-outer quadrant of left breast in female, estrogen receptor positive03/31/2017 ??? Obstructive sleep apnea on CPAP ? Proteinuria ? Past??Surgical??History Past Surgical History: Procedure Laterality Date ??? BREAST BIOPSY Right 11/01 ??? SECTION ? x 2 ??? HAND SURGERY Right ? IR DRAIN CHECK/CHANGE/REMOVE ?? 11/20/2017 ?? IR Drain Check/Change/Remove 11/20/2017 Marcos Dey MD [facility] ??? IR MEDIPORT REMOVAL ?? 01/25/2018 ?? IR Mediport Removal 01/25/2018 Scooby Muñoz APRN [facility] ??? PRG EMG, LARYNX N/A 11/02/2015 ?? FACIAL NERVE MONITORING, SETUP LARYNGEAL performed by Valentina Lucas MD at [facility] OR ??? PRO BREAST RECONSTRUC W FREE FLAP Bilateral 04/26/2017 ?? @BREAST RECONSTRUCTION W/ FREE FLAP, SUSAN (WRVU 42.58) performed by Andre Gimenez MD at [facility] OR ??? PRO BREAST RECONSTRUC W FREE FLAP, W/O IMPLANT Bilateral 12/12/2017 ?? @BREAST RECONSTRUCTION W/ LAT DORSI FLAP,W/O IMPLANT, SUSAN (WRVU 23.36) performed by Andre Gimenez MD at [facility] OR ??? PRO BREAST RECONSTRUC W TISS EXPANDR Bilateral 04/26/2017 ?? BREAST RECONSTRUCTION, IMMEDIATE OR DELAYED, W/ TISSUE LITHOGRAPH PRESS FEEDER, INCLUDING SUBSEQUENT EXPANSION (WRVU 18.5) performed by Andre Gimenez MD at [facility] OR ? ? PRO DEBRIDEMENT SUBCUTANEOUS TISSUE 20 SQCM/< ?? 06/22/2017 ?? DEBRIDEMENT SKIN AND SUBCU, BREAST (WRVU 1.01) performed by Andre Gimenez MD at [facility] OR ??? PRO EXPLORE PARATHYROID GLANDS N/A 11/02/2015 ?? PARATHYROIDECTOMY OR EXPLORATION OF PARATHYROID(S) performed by Valentina Lucas MD at [facility] OR ? ? PRO FULL THICK GRFT TRUNK <20 SQCM Bilateral 04/26/2017 ?? FTSG, FREE, DIR CLOSE DONOR SITE, TRUNK, 20 SQ CM OR LESS (WRVU 9.15) performed by Susana Gimenez MD at [facility] OR ??? PRO MASTECTOMY, SIMPLE, COMPLETE Bilateral 04/26/2017 ?? MASTECTOMY, SIMPLE, COMPLETE-SUSAN (WRVU 15.85) performed by Jolie Menendez MD at [facility] OR ??? PRO PARTIAL REMOVAL OF RIB Bilateral 04/26/2017 ?? EXCISION OF RIB, PARTIAL (WRVU 7.26) performed by Andre Gimenez MD at [facility] OR ??? PRO REMOVE ARMPITS LYMPH NODES COMPLT Left 04/26/2017 ?? LYMPHADENECTOMY, AXILLARY, COMPLETE (WRVU 13.87) performed by Jolie Menendez MD at [facility] OR ??? PRO REPLACE TISSUE LITHOGRAPH PRESS FEEDER Bilateral 12/12/2017 ?? TISSUE LITHOGRAPH PRESS FEEDER REPLACEMENT, WITH PERMANENT PROSTHESIS, SUSAN (WRVU 8.01) performed by Andre Gimenez MD at [facility] OR ??? PRO REVISE BREAST RECONSTRUCTION Left 06/22/2017 ?? REVISION OF RECONSTRUCTED BREAST (WRVU 10.41) performed by Andre Gimenez MD at [facility] OR ??? PRO REVISE BREAST RECONSTRUCTION Bilateral 12/12/2017 ?? REVISION OFRECONSTRUCTED BREAST, SUSAN (WRVU 10.41) performed by Andre Gimenez MD at [facility] OR ??? PRO THYMECTOMY, TRANSCERVICAL N/A 11/02/2015 ?? THYMECTOMY, TRANSCERVICAL APPROACH performed by Valentina Lucas MD at [facility] OR ??? SHOULDER SURGERY Left ? UMBILICAL HERNIA REPAIR ? Medications: Medication Sig ??? tamoxifen (NOLVADEX) 20 [...] ??? fluoxetine (PROZAC) 40 mg capsule daily. ?? Allergies: Zoloft [sertraline] ?? Social History and Habits: Social History ?? Socioeconomic History ??? Marital status: ? Spouse name: Not on file ??? Number of children: Not on file ??? Years of education: Not on file ??? Highest education level: Not on file Occupational History ??? Not on file Social Needs ??? Financial resource strain: Not on file ??? Food insecurity: ? Worry: Not on file ? Inability: Not on file ??? Transportation needs: ? Medical: Not on file ? Non-medical: Not on file Tobacco Use ??? Smoking status: Former Smoker ??? Smokeless tobacco: Never Used Substance and Sexual Activity ??? Alcohol use: Yes ? Comment: socially once a month ??? Drug use: No ??? Sexual activity: Not on file Lifestyle ??? Physical activity: ? Days per week: Not on file ? Minutes per session: Not on file ??? Stress: Not on file Relationships ??? Social connections: ? Talks on phone: Not on file ? Gets together: Not on file ? Attends orthodox service: Not on file ? Active member of club or organization: Not on file ? Attends meetings of clubs or organizations: Not on file ? Relationship status: Not on file ??? Intimate partner violence: ? Fear of current or ex partner: Not on file ? Emotionally abused: Not on file ? Physically abused: Not on file ? Forced sexual activity: Not on file Other Topics Concern ??? Not on file Social History Narrative ??? Not on file ?? Significant Family History: Family??History Family History Problem Relation Age of Onset ??? Breast Cancer Maternal Cousin 45 ?? Dx'd with Stg IV BR CA, in remission (age 48 in 2018); per pt report, genetic test inconclusive ??? Breast Cancer Mother 70 ??? Breast Cancer Maternal Aunt 39 ?? contralateral breast cancer at 50; per pt report, negative genetic testing ??? Prostate Cancer Father 60 ??? Colorectal Cancer Maternal Grandfather 79 ??? Colorectal Cancer Maternal Uncle 68 ??? Stomach Cancer Maternal Cousin 51 ??? Breast Cancer Other 60 ??? Colorectal Cancer Other 64 ??? Ovarian Cancer Other 57 ??? Stomach Cancer Maternal Cousin 57 ? Physical Exam: Pending ?? Labs: Lab Results Component Value Date ?? WBC 13.1 (H) 12/15/2017 ?? ANC 12.19 (H) 10/04/2017 ?? HCT 24.6 (L) 12/15/2017 ?? PLATELET 339 12/15/2017 ?? INR 1.1 11/30/2017 ?? BUN 24 (H) 12/15/2017 ?? CREATININE 1.35 (H) 12/15/2017 ?? ALKPHOS 77 12/15/2017 ?? AST 15 12/15/2017 ?? ALBUMIN 2.6 (L) 12/15/2017 ?? BILITOT <0.2 (L) 12/15/2017 ?? ALT <5 12/15/2017 ?? PROT 5.5 (L) 12/15/2017 ? 04/01/18: The 24 hour urinary cortisol level pre dexamethasone administration was 16 mcg/24 hours (normal 3.5-45mcg/24hrs) and post dexamethasone 24 hour urinary cortisol was 27. 24 hour urine creatinine 1.15 and 1.10, respectively. ?? ALDOSTERONE 21 (ng/dl) (<21) 05/21/18 RENIN ACTIVITY <0.6 ng/ml/h (>2.9) ?? Prior Imagin01/16/18 CT: Solid organs: Punctate nonobstructing [...] Hypertension relatively controlled, but with K 2.8. ?? Plan: Bilateral adrenal vein sampling. Patient to remain off spironolactone until after procedure. ? Labs: [per IR/CT protocol] Prophylactic antibiotic: [none] Medications to discontinue (and when): [none] Patient Position: [supine] Access site: Right CFV Sedation Plan : Mod Conscious Discharge Plan: home INTERVENTIONAL RADIOLOGY Focused/Interval H&P ADDENDUM Procedure: Bilateral adrenal vein sampling The planned procedure, its benefits and risks were discussed with the patient. The patient consented to the procedure. Physical Exam Gen: NAD AAO X 3 Heart: RRR Lungs: Clear Abdomen: S/ND/NT Sedation Plan: moderate (conscious sedation) Confirm NPO status: Yes History of anesthetic complications: No Current medications reviewed: Yes Allergies reviewed: Yes ASA Classification: ASA 2 - Patient with mild systemic disease with no functional limitations Mallampati Classification: II (soft palate, uvula, fauces visible) 07/12/2018 documented in this encounter Plan of Treatment Upcoming Encounters Date Type Department Care Team (Late st Contact Info) Description 01/22/2024 10:30 AM EST Appointment Mammography[place] [phone] Ladi Mendosa MD [facility] HEMATOLOGY/[place] [address] 01/30/2024 11:30 AM EST Office Visit Dermatology at [place] [address] [place] [phone] Nilda Luis MD [facility] DR LIDIA [place] [address] 02/15/2024 9:30 AM EST [place] [phone] [place] [address] documented as of this encounter Procedures Procedure Name Priority Date/Time Associated Diagnosis Comments IR ADRENAL VEIN SAMPLING Routine 07/12/2018 9:59 AM EDT Primary hyperaldosteronism ALDOSTERONE Routine 07/12/2018 9:44 AM EDT CORTISOL Routine 07/12/2018 9:44 AM EDT ALDOSTERONE Routine 07/12/2018 9:02 AM EDT CORTISOL Routine 07/12/2018 9:02 AM EDT ALDOSTERONE Routine 07/12/2018 8:46 AM EDT CORTISOL Routine 07/12/2018 8:46 AM EDT ALDOSTERONE Routine 07/12/2018 8:41 AM EDT CORTISOL Routine 07/12/2018 8:41 AM EDT ALDOSTERONE Routine 07/12/2018 8:37 AM EDT CORTISOL STAT 07/12/2018 8:34 AM EDT documented in this encounter Results * IR Adrenal Vein [...] saturation. ??Procedure was performed in accordance with [facility] protocol. ??An IV infusion of 50 mcg [...] obtained with wire in place through a [id number]. ??Specimen was sent for stat cortisol (08:34)and [...] ?? Marcos Dey MD IMG IR ORDERABLES * (ABNORMAL) Aldosterone (07/12/2018 9:44 AM EDT) Aldosterone 1990(H) <=21 ng/dL [facility] Comment: ADDITIONAL INFORMATION Reference range for patients 11 years and older is based on upright A.M. collection from subjects without sodium restrictions. This test was developed and its performance characteristics determined by [facility] in a manner consistent with CLIA requirements. This test has not been cleared or approved by the U.S. Food and Drug Administration. Test Performed by: [facility] [place] [address] Blood specimen (specimen) 07/12/2018 9:44 AM EDT 07/12/2018 11:28 AM EDT Narrative Resulting Agency Comment Spec In Lab Marcos Dey MD CHEMISTRY ORDERABLES Performing Organization Address [facility]/ZIP Co de Phone Number [facility] [place] [address] * Cortisol (07/12/2018 9:44 AM EDT) Cortisol 775.5 mcg/dL [facility] Comment: Reference ranges: ??AM (6-10am): ??4.8-19.5 mcg/dL ??PM (4-8pm) : ??2.5-11.9 mcg/dL Blood specimen (specimen) 07/12/2018 9:44 AM EDT 07/12/2018 9:58 AM EDT Narrative Resulting Agency Comment Spec In Lab Marcos Dey MD CHEMISTRY ORDERABLES Performing Organization Address City/[facility]/ZIP Co de Phone Number [facility] [place] [address] * (ABNORMAL) Aldosterone (07/12/2018 9:02 AM EDT) Aldosterone 37(H) <=21 ng/dL [facility] Comment: ADDITIONAL INFORMATION Reference range for patients 11 years and older is based on upright A.M. collection from subjects without sodium restrictions. This test was developed and its performance characteristics determined by [facility] in a manner consistent with CLIA requirements. This test has not been cleared or approved by the U.S. Food and Drug Administration. Test Performed by: [facility] - [facility] [address] [place] [id number] Blood specimen (specimen) 07/12/2018 9:02 AM EDT 07/12/2018 12:44 PM EDT Narrative Resulting Agency Comment Spec In Lab Marcos Dey MD CHEMISTRY ORDERABLES Performing Organization Address City/[facility]/ZIP Co de Phone Number [facility] [place] [address] * Cortisol (07/12/2018 9:02 AM EDT) Cortisol 35.8 mcg/dL [facility] Comment: Reference ranges: ??AM (6-10am): ??4.8-19.5 mcg/dL ??PM (4-8pm) : ??2.5-11.9 mcg/dL Blood specimen (specimen) 07/12/2018 9:02 AM EDT 07/12/2018 9:58 AM EDT Narrative Resulting Agency Comment Spec In Lab Marcos Dey MD CHEMISTRY ORDERABLES [facility] [place] [address] * (ABNORMAL) Aldosterone (07/12/2018 8:46 AM EDT) Aldosterone 36(H) <=21 ng/dL [facility] Comment: ADDITIONAL INFORMATION Reference range for patients 11 years and older is based on upright A.M. collection from subjects without sodium restrictions. This test was developed and its performance characteristics determined by [facility] in a manner consistent with CLIA requirements. This test has not been cleared or approved by the U.S. Food and Drug Administration. Test Performed by: [facility] [address] [place] [address] Blood specimen (specimen) 07/12/2018 8:46 AM EDT 07/12/2018 11:28 AM EDT Narrative Resulting Agency Comment Spec In Lab Marcos Dey MD CHEMISTRY ORDERABLES Performing Organization Address [facility] Co de Phone Number [facility] [place] [address] * Cortisol (07/12/2018 8:46 AM EDT) Cortisol 30.6 mcg/dL [facility] Comment: Reference ranges: ??AM (6-10am): ??4.8-19.5 mcg/dL ??PM (4-8pm) : ??2.5-11.9 mcg/dL Blood specimen (specimen) 07/12/2018 8:46 AM EDT 07/12/2018 9:24 AM EDT Narrative Resulting Agency Comment Spec In Lab Marcos Dey MD CHEMISTRY ORDERABLES Performing Organization Address City/[facility] Co de Phone Number [facility] [place] [address] * (ABNORMAL) Aldosterone (07/12/2018 8:41 AM EDT) Aldosterone 2570(H) <=21 ng/dL [facility] Comment: ADDITIONAL INFORMATION Reference range for patients 11 years and older is based on upright A.M. collection from subjects without sodium restrictions. This test was developed and its performance characteristics determined by [facility] in a manner consistent with CLIA requirements. This test has not been cleared or approved by the U.S. Food and Drug Administration. Test Performed by: [facility] [address] [place] [address] Blood specimen (specimen) 07/12/2018 8:41 AM EDT 07/12/2018 11:28 AM EDT Narrative Resulting Agency Comment Spec In Lab Marcos Dey MD CHEMISTRY ORDERABLES Performing Organization Address City/[facility]/ZIP Co de Phone Number [facility] [place] [address] * Cortisol (07/12/2018 8:41 AM EDT) Cortisol 724.0 mcg/dL [facility] Comment: Reference ranges: ??AM (6-10am): ??4.8-19.5 mcg/dL ??PM (4-8pm) : ??2.5-11.9 mcg/dL Blood specimen (specimen) 07/12/2018 8:41 AM EDT 07/12/2018 9:22 AM EDT Narrative Resulting Agency Comment Spec In Lab Marcos Dey MD CHEMISTRY ORDERABLES Performing Organization Address City/[facility]/ZIP Co de Phone Number [facility] [place] [address] * (ABNORMAL) Aldosterone (07/12/2018 8:37 AM EDT) Aldosterone 2410(H) <=21 ng/dL [facility] Comment: ADDITIONAL INFORMATION Reference range for patients 11 years and older is based on upright A.M. collection from subjects without sodium restrictions. This test was developed and its performance characteristics determined by [facility] in a manner consistent with CLIA requirements. This test has not been cleared or approved by the U.S. Food and Drug Administration. Test Performed by: [facility] [address] [facility], [place] [address] Blood specimen (specimen) 07/12/2018 8:37 AM EDT 07/12/2018 11:28 AM EDT Narrative Resulting Agency Comment Spec In Lab Marcos Dey MD CHEMISTRY ORDERABLES Performing Organization Address [facility] Co de Phone Number [facility] [place] [address] * Cortisol (07/12/2018 8:34 AM EDT) Cortisol 512.0 mcg/dL [facility] Comment: Called by: paige, Read back by: Elisa Lei, Date/Time:07/12/18 09:46. Reference ranges: ??AM (6-10am): ??4.8-19.5 mcg/dL ??PM (4-8pm) : ??2.5-11.9 mcg/dL Blood specimen (specimen) 07/12/2018 8:34 AM EDT 07/12/2018 8:45 AM EDT Narrative Resulting Agency Comment Spec In Lab Marcos Dey MD CHEMISTRY ORDERABLES Performing Organization Address [facility] Co de Phone Number [facility] [place] [address] * Creatinine (07/12/2018 6:22 AM EDT) Creatinine 0.98 0.70 - 1.20 mg/dL [facility] Estimated GFR 65 >=60 mL/min/1.7 3 m?? [facility] Comment: The eGFR was calculated using the CKD-EPI equation. As with all creatinine based estimates of kidney function, eGFR values calculated with the CKD-EPI equation are not accurate in patients with acute kidney failure, extremes of body mass or the acutely ill. [email or web address] – BOISE CITYnkf eGFR 75 >=60 mL/min/1.7 3 m?? [facility] Comment: The eGFR was calculated using the CKD-EPI equation. As with all creatinine based estimates of kidney function, eGFR values calculated with the CKD-EPI equation are not accurate in patients with acute kidney failure, extremes of body mass or the acutely ill. [email or web address]/[email or web address] Blood specimen (specimen) 07/12/2018 6:22 AM EDT 07/12/2018 6:25 AM EDT Narrative Resulting Agency Comment Spec In Lab Marcos Dey MD CHEMISTRY ORDERABLES [facility] [place] [address] * (ABNORMAL) Platelet count (07/12/2018 6:22 AM EDT) Platelets 365(H) 145 - 357 x10(3)/mc L [facility] Plat Immature % 0.5 0.0 - 7.4 % [facility] Comment: Limitation of the Immature Platelet Fraction (IPF)-May be less reliable when the platelet count is less than 71n963/uL due to statistical imprecision. The IPF value [...] in a decreased state of production. References: [employer] The Clinical Value of the Immature Platelet Fraction (IPF) in Cell Recovery Document Number 10-1143 07/2010 [employer] The Role of the Immature Platelet Fraction (IPF) in the Differential Diagnosis of Thrombocytopenia, Document [id number] V006/30/13 P007/02 Blood specimen (specimen) 07/12/2018 6:22 AM EDT 07/12/2018 6:25 AM EDT Narrative Resulting Agency Comment Spec In Lab Marcos Dey MD HEMATOLOGY ORDERABLE [facility] [address] documented in this encounter Visit Diagnoses Diagnosis Pre-op testing Preoperative examination, unspecified Hypertension, unspecified type Primary hyperaldosteronism Hyperaldosteronism, unspecified documented in this encounter Administered Medications Inactive Administered Medications - up to 3 most recent administrations Medication Order MAR Action Action Date Dose Rate Site cosyntropin (CORTROSYN) 0.25 mg in sodium chloride 0.9% 250 mL Infusion 50 mcg/hr (50 mL/hr), Intravenous, CONTINUOUS, Starting on Sun07/12/18 at 0700, Until Sun07/12/18 at 1027, For use in Interventional Radiology (IR) only for procedure with direct provider supervision and verbal order. Start 30 minutes prior to procedure, Angio/IR (Day of Procedure) New Bag 07/12/2018 7:00 AM EDT 50 mcg/hr 50 mL/hr fentaNYL 50 mcg/mL multi-dose injection 25-50 mcg, Intravenous, EVERY 5 MIN PRN, Starting on Sun07/12/18 at 0640, Until Sun07/12/18 at 0947, Pain, per unit protocol, - Start dose 50 mcg (reduce dose to 25 mcg if history of sedation sensitivity). - Titration dose 25-50 mcg IV, (based on patient response) every 3 minutes PRN, to maintain procedural pain less than 2 per pain Scale. Maximum dose: 50 mcg/dose, 250 mcg/hour For use in Interventional Radiology (IR) only for procedural sedation with direct provider supervision and verbal order., Angio/IR (Intra-Procedure), Routine Given 07/12/2018 8:46 AM EDT 25 mcg Given 07/12/2018 8:22 AM EDT 50 mcg Given 07/12/2018 8:16 AM EDT 25 mcg iohexol (OMNIPAQUE) 350 mg/mL solution 150 mL 150 mL, Intravenous, ONCE, 1 dose, On Sun07/12/18 at 1015, Warning Vesicant/Irritant Medication , Angio/IR (Intra-Procedure), Routine Given 07/12/2018 10:15 AM EDT 50 mLs lidocaine (XYLOCAINE) 10 mg/mL (1 %) injection 10 mg 10 mg, Subcutaneous, ONCE, 1 dose, On Sun07/12/18 at 0700, For use in Interventional Radiology (IR) only for procedure with direct provider supervision and verbal order., Angio/IR (Intra-Procedure), Routine Given 07/12/2018 8:02 AM EDT 10 mg midazolam (PF) (VERSED) multi-dose injection 0.5-1 mg 0.5-1 mg, Intravenous, EVERY 3 MIN PRN, Starting on Sun07/12/18 at 0640, Until Sun07/12/18 at 0947, Sleep, - Start dose; 1 mg (Reduce dose to 0.5 mg if history of sedation sensitivity). - Titration dose: 0.5 mg - 1 mg (based on patient response) every 3 minutes PRN to obtain RASS score of -3. Maximum dose: 1 mg per dose, 5 mg/hour. For use in Interventional Radiology (IR) only for procedural sedation with direct provider supervision and verbal order., Angio/IR (Intra-Procedure), Routine Given 07/12/2018 8:46 AM EDT 0.5 mg Given 07/12/2018 8:22 AM EDT 1 mg Given 07/12/2018 8:16 AM EDT 0.5 mg sodium chloride 0.9% infusion 1,000 mL, at 100 mL/hr, Intravenous, CONTINUOUS, Starting on Sun07/12/18 at 0700, Until Sun07/12/18 at 1027, Day of Surgery (Day of Procedure) New Bag 07/12/2018 7:00 AM EDT 1,000 mLs 100 mL/hr documented in this encounter Care Teams Production Potter Relationship Specialty Start Date End Date Trinh Coates MD [address] [place] [address] PCP - General 01/11/10 documented as of this encounter
--- OUTSIDE RECORDS SUMMARY | 2023-09-07 11:28 | XMS_ITS | Encounter Summary ---
Author Organization [facility] [place] [address] Care Team Providers Care Executive Vice President And Chief Operating Officer Name Role Phone Trinh Coates MD Primary Care Provider [phone] Encounter Details Date Type Department Care Team (Late st Contact Info) Description 04/15/2018 Telephone [place] [phone] Lakeisha Reza MD [facility] [place] [address] Social History Tobacco Use Types Packs/Day Years [...] Telephone Encounter - Lakeisha Reza MD - 04/15/2018 10:08 AM EST Called Wendy to discuss 2 x 24 hour urinary cortisol levels (both normal at 27 mcg and 16 mcg). Voicemail message left. Will send myDH message regarding transition plan to HCTZ from spironolactone to allow for testing for hyperaldosteronism in future. Lakeisha Reza PGY 4 Endocrinology Pager [phone] documented in this encounter Plan of Treatment Upcoming Encounters Date Type Department Care Team (Late st Contact Info) Description 01/22/2024 10:30 AM EST Appointment Mammography/DXA at [place] [phone] Ladi Mendosa MD [facility] [place] [address] 01/30/2024 11:30 AM EST Office Visit Dermatology at [place] [address] [place] [phone] Nilda Luis MD [facility] [address] [place] [address] 02/15/2024 9:30 AM EST Appointment [place] [address] [place] [address] documented as of this encounter Visit Diagnoses Diagnosis Hypokalemia Hypopotassemia documented in this encounter Care Teams Executive Vice President And Chief Operating Officer Relationship Specialty Start Date End Date Trinh Coates MD [address] [place] [address] PCP - General 01/11/10 documented as of this encounter
--- OUTSIDE RECORDS SUMMARY | 2023-09-07 11:28 | XMS_ITS | Encounter Summary ---
Author Organization [place] [address] Care Team Providers Care User Support Analyst Supervisor Name Role Phone Trinh Coates MD Primary Care Provider [phone] Encounter Details Date Type Department Care Team (Late st Contact Info) Description 07/23/2018 Telephone [place] [address] Lakeisha Reza MD [facility] [place] [address] Social History Tobacco Use Types Packs/Day Years [...] Telephone Encounter - Lakeisha Reza MD - 07/23/2018 9:49 AM EDT Attempted to reach patient on both mobile and home phones to discuss results of adrenal venous sampling. Left voicemail message with contact details and will send [facility] message. Lakeisha Reza PGY 4 Endocrinology Pager [phone] documented in this encounter Plan of Treatment Upcoming Encounters Date Type Department Care Team (Late st Contact Info) Description 01/22/2024 10:30 AM EST Appointment Mammography/[place] [address] Ladi Mendosa MD [facility] HEMATOLOGY/[place] [address] 01/30/2024 11:30 AM EST Office Visit Dermatology at [facility] [address] [place] [address] Nilda Luis MD [facility] [address] [place] [address] 02/15/2024 9:30 AM EST Appointment Radiology at [place] [phone] [place] [address] documented as of this encounter Visit Diagnoses Not on filedocumented in this encounter Care Teams User Support Analyst Supervisor Relationship Specialty Start Date End Date Trinh Coates MD [facility] [address] [facility] [address] [place] [address] PCP - General 01/11/10 documented as of this encounter
--- OUTSIDE RECORDS SUMMARY | 2023-09-07 11:28 | XMS_ITS | Encounter Summary ---
Author Organization [facility] Address [facility] [place] [address] Care Team Providers Care Physician Allergist Immunologist Name Role Phone Trinh Coates MD Primary Care Provider [phone] Encounter Details Date Type Department Care Team (Late st Contact Info) Description 03/19/2018 Orders [place] [phone] Lakeisha Reza MD [facility] [place] [address] Hypokalemia; Hypertension, unspecified type Social History Tobacco [...] 01/22/2024 10:30 AM EST Appointment Mammography[place] [phone] Ladi Mendosa MD [facility] HEMATOLOGY/[place] [address] 01/30/2024 11:30 AM EST Office Visit Dermatology at [address] [place] [address] Nilda Luis MD [facility] [address] [address] 02/15/2024 9:30 AM EST [place] [phone] [place] [address] documented as of this encounter Visit Diagnoses Diagnosis Hypokalemia Hypopotassemia Hypertension, unspecified type documented in this encounter Care Teams Physician Allergist Immunologist Relationship Specialty Start Date End Date Trinh Coates MD [address] [place] [address] PCP - General 01/11/10 documented as of this encounter
--- OUTSIDE RECORDS SUMMARY | 2023-09-07 11:28 | XMS_ITS | Encounter Summary ---
Author Organization [facility] Address [facility] [place] [address] Care Team Providers Care Closed Circuit Screen Watcher Name Role Phone Trinh Coates MD Primary Care Provider [phone] Encounter Details Date Type Department Care Team (Late st Contact Info) Description 04/15/2018 Orders [place] [phone] Lakeisha Reza MD [facility] [place] [address] Social History Tobacco Use Types Packs/Day Years [...] 01/22/2024 10:30 AM EST Appointment Mammography[place] [phone] Ladi Mendosa MD [facility] HEMATOLOGY/[place] [address] 01/30/2024 11:30 AM EST Office Visit Dermatology at [facility] [address] [place] [address] Nilda Luis MD [facility] [address] [place] [address] 02/15/2024 9:30 AM [place] [phone] [place] [address] documented as of this encounter Visit Diagnoses Not on filedocumented in this encounter Care Teams Closed Circuit Screen Watcher Relationship Specialty Start Date End Date Trinh Coates MD [facility] [address] [address] PCP - General 01/11/10 documented as of this encounter
--- OUTSIDE RECORDS SUMMARY | 2023-09-07 11:28 | XMS_ITS | Encounter Summary ---
Author Organization Formerly [facility] [place] [address] Care Team Providers Care Composite Layup Worker Name Role Phone Trinh Coates MD Primary Care Provider [phone] Reason for Visit * Reason Comments Follow Up Surgery Discuss lymphoscinti graphy Encounter Details Date Type Department Care Team (Late st Contact Info) Description 08/19/2018 2:15 PM EDT Office [place] [address] Mali Gimenez MD [facility] [place] [address] S/P breast reconstruction, bilateral Social History Tobacco [...] this encounter Patient Instructions * Patient Instructions* Clarisse Crump RN - 08/19/2018 2:15 PM EDT You were given written and verbal preoperative instructions today. Patient was advised to: 2 weeks prior to surgery: Stop taking aspirin & ibuprofen type products, Stop vitamin E, Garlic supplements, Ginseng, Fish oil tablets, Ginkgo and Daiana's Wort. May resume 48 hours after surgery and Stop taking Tamoxifen and Estrogen and remain off these products for 2 weeks after surgery 3 days before surgery: Do not shave near your surgical site 1 day before surgery: Shower the night before and the morning of your surgery using an antibacterial soap (Dial or Lever 2000) or Hibiclens that was provided Photos Taken: No To prepare for your upcoming surgery, please review the Pre-Operative Instruction brochure that youwere given at today's appointment. Feel free to call our office [phone] if you have any nursingquestions or concerns. We monitor the phones from 8-5 Sunday through Sunday. Expect a call from the Same Day Dept the business day before surgery to go over your list of medications and instruct you on arrival time, and when to stop eating and drinking. For questions pertaining to your surgery date or time please call Tawana at [phone]. documented in this encounter Progress Notes * Mali Gimenez MD - 08/19/2018 2:15 PM EDT Plastic Surgery Follow Up Note Date [...] and closure. Debridement of umbilicus. Deflation of vice president education volume, This leaves 450 cc in the left tissue vice president education and 500 cc on the right side Date of surgery: 04/26/17 Procedure(s): Bilateral breast reconstruction with attempted SALVADOR flaps, eventual tissue vice president education placement with Eupora Artoura 600 cc expanders placed bilaterally and filled with 450 cc of methyleneblue impregnated saline.) Complications: right parietal and visceral pleural tear, arterial flap failure bilaterally Chemotherapy: yes - last dose 11/15 Radiation: yes. On left side. HPI: Patient returns to our office today to discuss the results of her lymphoscintigraphy, which was performed 08/14/18. Examination: Patient is alert, conversant, comfortable, ambulating Radiology: Lymphoscintigraphy 08/14/18 IMPRESSION 1. Decreased lymphatic flow in the left upper extremity with backflow pattern, as above. 2. Slow lymphatic flow in the right upper extremity with activity seen in the right axilla at 90 minutes post injection. Impression: Wendy Sandoval is a 53 y.o. female who was seen today for follow- up after the above procedures. Please see the procedure notes for further details. I explained to the patient that her lymphoscintigraphy showed evidence of lymphedema. I discussed the nature of the lymphatic system with her in great length and that surgical intervention would not cure her lymphedema, but may offer her some relief. She may still have to wear her surgical garment. Surgical correction in the form of lymphevenous bypass was discussed with the patient in detail including that this would be an outpatient procedure. We also Discussed the possibility of transplanting a cluster of lymph nodes to the armor nearer to the wrist may be the most useful. We discussed that this may take up to a year to materialize and that this would require hospitalization for about 3 days. Patient would prefer to start with the LV bypass. Surgical consent was signed. We discussed potential risks and complications which include but are not limited to: Pain, bleeding, infection, scarring, asymmetry, hematoma, seroma, poor cosmetic outcome, failure ofprocedure, possible need for revision, damage to adjacent structures. Plan: Surgeon: Ammy Duration: 2.5 hours Timeframe: Elective Coordinated with: None Procedure: Lymphatic mapping, lymphevenous bypass CPT: 66037, 05203 Surgical site: Arm Side: Left Anesthesia: General Follow up: 7 to 10 Days with AEE PAT: Tara Osman, have performed the documentation for this encounter in the presence of and acting as a scribe for MALI GIMENEZ MD. MALI Atkinson MD, have performed the documentation for this encounter in the presence of and acting as a scribe for MALI GIMENEZ MD. documented in this encounter Plan of Treatment Upcoming Encounters Date Type Department Care Team (Late st Contact Info) Description 01/22/2024 10:30 AM EST Appointment Mammography/[place] [address] Ladi Mendosa MD [facility] HEMATOLOGY/[place] [address] 01/30/2024 11:30 AM EST Office Visit Dermatology at [place] [address] [place] [address] Nilda Luis MD [facility] DR LIDIA AMEZCUA-DERMATOLGY [place], [place] [phone] 02/15/2024 9:30 AM EST Appointment Radiology at [place] [phone] [place] [address] documented as of this encounter Procedures Procedure Name Priority Date/Time Associated Diagnosis Comments INCISION & DRAINAGE LYMPHOCELE Routine 08/19/2018 2:44 PM EDT S/P breast reconstruction, bilateral documented in this encounter Visit Diagnoses Diagnosis S/P breast reconstruction, bilateral Breast replaced by other means documented in this encounter Care Teams Composite Layup Worker Relationship Specialty Start Date End Date Trinh Coates MD [address] [place] [address] PCP - General 01/11/10 documented as of this encounter
--- OUTSIDE RECORDS SUMMARY | 2023-09-07 11:28 | XMS_ITS | Encounter Summary ---
Author Organization [facility] Address [facility] [place] [address] Care Team Providers Care Medical Office Technology Instructor Name Role Phone Trinh Coates MD Primary Care Provider [phone] Encounter Details Date Type Department Care Team (Late st Contact Info) Description 08/22/2018 Orders Only Dermatology at [facility] [address] [place] [address] CallAndre MD [facility] [address] [address] Psoriasis Social History Tobacco Use Types Packs/Day [...] 01/22/2024 10:30 AM EST Appointment Mammography/[place] [phone] Ladi Mendosa MD [facility] HEMATOLOGY/[place] [address] 01/30/2024 11:30 AM EST Office Visit Dermatology at [facility] [address] [place] [address] Nilda Luis MD [facility] [address] [place] [address] 02/15/2024 9:30 AM EST Appointment [place] [phone] [place] [address] documented as of this encounter Visit Diagnoses Diagnosis Psoriasis Other psoriasis documented in this encounter Care Teams Medical Office Technology Instructor Relationship Specialty Start Date End Date Trinh Coates MD [facility] [address] [address] PCP - General 01/11/10 documented as of this encounter
--- OUTSIDE RECORDS SUMMARY | 2023-09-07 11:28 | XMS_ITS | Encounter Summary ---
Author Organization [facility] Address [facility] [place] [address] Care Team Providers Care Store Facility Technician Name Role Phone Trinh Coates MD Primary Care Provider [phone] Encounter Details Date Type Department Care Team (Late st Contact Info) Description 08/14/2018 Refill Dermatology at [facility] [address] [place] [address] Tino Mann MD [facility] DR LIDIA [place] [address] Psoriasis Social History Tobacco Use Types Packs/Day [...] Miscellaneous Notes * Telephone Encounter - Mana Lei RPH - 08/14/2018 4:51 PM EDT Specialty Pharmacy Referral; Mana Lei RPH Transfer of Services Wendy Sandoval [address] [facility] [address] Telephone Information: The [facility] has received a prescription for Stelara for patient Ms. Wendy Sandoval 53 y.o. (1965). Due to a mandate from the patient's insurer, the prescription needs to be filled with [facility]. We left message for patient to notify of this change and to provide number to reach then filling pharmacy. A copy of patient's medication profile was offered to the accepting pharmacy. Additional instructions provided to patient about transfer: no The patient has been advised to call the [facility] at [phone] with any questions or concerns on this referral. Thank you, Mana Lei RPH 08/14/18 4:51 PM Patient understands no changes to current drug regimen were made at this time. documented in this encounter Plan of Treatment Upcoming Encounters Date Type Department Care Team (Late st Contact Info) Description 01/22/2024 10:30 AM EST Appointment Mammography[place] [phone] Ladi Mendosa MD [facility] HEMATOLOGY/[place] [address] 01/30/2024 11:30 AM EST Office Visit Dermatology at [address] [phone] Nilda Luis MD [facility] DR LID[address] [place] [address] 02/15/2024 9:30 AM EST [place] [phone] Joanna Watts MD [place], [place] [phone] documented as of this encounter Visit Diagnoses Diagnosis Psoriasis Other psoriasis documented in this encounter Care Teams Store Facility Technician Relationship Specialty Start Date End Date Trinh Coates MD [facility] [address] [place] [address] PCP - General 01/11/10 documented as of this encounter
--- OUTSIDE RECORDS SUMMARY | 2023-09-07 11:28 | XMS_ITS | Encounter Summary ---
Author Organization [facility] Address [facility] [address] [facility] [place] [address] Care Team Providers Care Painter Aircraft Name Role Phone Trinh Coates MD Primary Care Provider [phone] Reason for Visit * Reason Comments Follow-up Encounter Details Date Type Department Care Team (Latest Contact Info) Description 05/29/2018 3:00 PM EDT Office Visit Hematology [place] [address] Josias Barnett MD [facility] DR HEMATOLOGY/[place] [address] Malignant neoplasm of upper-outer quadrant of left [...] Sign Reading Time Taken Comments Blood Pressure 154/85 05/29/2018 2:54 PM EDT Pulse 71 05/29/2018 2:54 PM EDT Temperature 37 ??C (98.6 ??F) 05/29/2018 2:54 PM EDT Respiratory Rate 18 05/29/2018 2:54 PM EDT Oxygen Saturation 98% 05/29/2018 2:54 PM EDT Inhaled Oxygen Concentration - - Weight 76.2 kg (168 lb) 05/29/2018 2:54 PM EDT Height 155 cm (5' 1.02) 05/29/2018 2:54 PM EDT Body Mass Index 31.72 05/29/2018 2:54 PM EDT documented in this encounter Progress Notes * Josias Barnett MD - 05/29/2018 3:00 PM EDT Breast cancer Follow up visit HPI: Diagnosis of Invasive ductal carcinoma, left breast, in March 2017. A. 2.0 cm cancer, high-grade, grade 3. ER/AL +++, HER-2/pat negative, 4/18 nodes (1/18 additional [...] her mother's side. Oct 2017 Genetic testing: [employer] Common Hereditary Cancers Panel showed no mutation was detected. This means that Wendy does not carry a mutation in the genes detectable by this test. The following genes were evaluated for sequence changes and exonic deletions/duplications: APC, AMAURY, AXIN2, BARD1, BMPR1A, BRCA1, BRCA2, BRIP1, CDH1, CDKN2A (p14ARF), CDKN2A (p02LBK7l), CHEK2, CTNNA1, DICER1, EPCAM (EPCAM: Deletion/duplication testing only (NM_[id number]), GREM1 (GREM1: Promoter region deletion/duplication testing only.), KIT, MEN1, MLH1, MSH2, MSH3, MSH6, MUTYH, NBN, NF1, PALB2, PDGFRA, PMS2, POLD1, POLE, PTEN, RAD50, RAD51C, RAD51D, SDHB, SDHC, SDHD, SMAD4, SMARCA4, STK11, TP53, TSC1, TSC 2, VHL. The following genes were evaluated for sequence changes only: HOXB13 (c.251G>A, p.Lhw68Oyt variant only), NTHL1 (NTHL1: Deletion/duplication analysis is not offered for this gene (NM_002528.6), and SDHA. A variant of uncertain significance in the AMAURY gene, specifically c.5727G>A (p.[id number]), was detected. Interval Hx/ROS: Since seen last Nov, she has received XRT and had bilateral reconstruction surgery (and mediport removed). Overall doing well. 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 Asbefore, occasionally affects her walking and feels she sometimes drops items. Some relief with gabapentin (taking 400mg total in a day now). Since starting tamoxifen has been experiencing nonbloody vaginal discharge (no odor). Also with random itching. Denies headaches, double vision, cough, SOB, bleeding, change in bowel or bladder function. She has Persistent L. Arm swelling from lymphedma - goes to PT once weekly and uses an ritika bandage wrap. ROS otherwise neg. Exam Most Recent Vitals: 05/29/18 1454 BP: 154/85 Pulse: 71 Resp: 18 Temp: 37 ??C (98.6 ??F) SpO2: 98% Gen: WD/WN F, A&C in NAD Skin: [...] wrapped w/ significant ritika-bandage Neuro: grossly nonfocal Assessment and Plan: Mrs. Sandoval is a 52 yo woman with a PMH of high-grade, node-positive left breast cancer ER+/AL+/HER2- (dx 03/2017, s/p bilateral mastectomy) who completed adjuvant chemo in October 2017. She is scheduled for bilateral breast reconstruction surgery with Plastic Surgery next week. She is then planning on meeting with Dr. Steph horan/ radiation oncology in early December to discuss radiation treatment. Given her hormone receptor positive disease, we discussed at prior visit the role of endocrine therapy in reducing the risk of recurrence or distant metastasis. Given her LMP was right before chemo initiation, recommended adjuvant Tamoxifen, which she started last Mar after radiation completion. Suggested she switch time of day taking tamoxifen. For her ongoing neuropathy we discussed increasing the gabapentin dose, initially to 600/d, then adding in 100mg mid-day as needed.. RTC 6 mo. If no period, will check FSH/Estradiol. documented in this encounter Plan of Treatment Upcoming Encounters Date Type Department Care Team (Late st Contact Info) Description 01/22/2024 10:30 AM EST Appointment Mammography/[place] [phone] Ladi Mendosa MD [facility] [place]ATOLOGY[place] [address] 01/30/2024 11:30 AM EST Office Visit Dermatology at [place] [address] [place] [phone] Nilda Luis MD [facility] [address] [place] [address] 02/15/2024 9:30 AM EST [place] [address] [place] [address] documented as of this encounter Visit Diagnoses Diagnosis Malignant neoplasm of upper-outer quadrant of left breast in female, estrogen receptor positive Neuropathy due to chemotherapeutic drug Polyneuropathy due to drugs documented in this encounter Care Teams Painter Aircraft Relationship Specialty Start Date End Date Trinh Coates MD [facility] [address] [facility] [address] [place] [address] PCP - General 01/11/10 documented as of this encounter
--- OUTSIDE RECORDS SUMMARY | 2023-09-07 11:28 | XMS_ITS | Encounter Summary ---
Author Organization [facility] [place] [address] Care Team Providers Care Manager Case Name Role Phone Trinh Coates MD Primary Care Provider [phone] Encounter Details Date Type Department Care Team (Late st Contact Info) Description 06/14/2018 Tele[place] [phone] Lakeisha Reza MD [facility] [place] [address] Social History Tobacco Use Types Packs/Day Years [...] Telephone Encounter - Lakeisha Reza MD - 06/14/2018 3:16 PM EDT Called Ms. Sandoval 06/13/18 at 8 am and discussed lab results (suppressed renin of <0.6 and aldosterone of 21 ng/dl on losartan and HCTZ suggestive of hyperaldosteronism). Ms. Sandoval stated blood pressure has been relatively well controlled, but she has had problems with low potassium (2.8) and her potassium replacement has been increased. We discussed that this condition can typically be managed medically with re-starting of spironolactone, or surgically if overproduction is unilateral (adenoma or unilateral hyperplasia). Of note, 03/2017 MRI abdomen did not report adrenal adenoma present. In order to determine if excess production localizes to one side adrenal venous sampling is required. Ms. Sandoval is interested in surgical management with unilateral adrenalectomy if possible and wishes to undergo adrenal venous sampling for further evaluation. Contacted interventional radiology and spoke with Diana Azevedo (IR PUBLICATION DIRECTOR) who will assist in coordinating initial IR review and scheduli rose. Lakeisha Reza PGY 4 Endocrinology Pager [phone] documented in this encounter Plan of Treatment Upcoming Encounters Date Type Department Care Team (Late st Contact Info) Description 01/22/2024 10:30 AM EST Appointment Mammography[place] [phone] Ladi Mendosa MD [facility] HEMATOLOGY/[place] [address] 01/30/2024 11:30 AM EST Office Visit Dermatology at [address] [phone] Nilda Luis MD [facility] [address] L[address] [place] [address] 02/15/2024 9:30 AM EST [place] [address] [place] [address] documented as of this encounter Visit Diagnoses Not on filedocumented in this encounter Care Teams Manager Case Relationship Specialty Start Date End Date Trinh Coates MD [address] [place] [address] PCP - General 01/11/10 documented as of this encounter
--- OUTSIDE RECORDS SUMMARY | 2023-09-07 11:28 | XMS_ITS | Encounter Summary ---
Author Organization [facility] Address [facility] [address] Care Team Providers Care Printer Slotter Operator Name Role Phone Trinh Coates MD Primary Care Provider [phone] Encounter Details Date Type Department Care Team (Late st Contact Info) Description 04/10/2018 Telephone [place] [address] Patricia Betancourt MD [facility] [place] [address] Social History Tobacco Use Types Packs/Day Years [...] encounter Miscellaneous Notes * Telephone Encounter - Patricia Betancourt CW - 04/10/2018 2:56 PM EST Endocrinology Telephone Note: Covering for Dr. Reza who is currently out of the [place]. Labs returned in paper form to Dr. Reza's in basket. The 24 hour urinary cortisol level pre dexamethasone administration was 16 mcg/24 hours (normal 3.5-45mcg/24hrs) and post dexamethasone 24 hour urinary cortisol was 27. 24 hour urine creatinine 1.15 and 1.10, respectively. Discussed these results with Comi. We both interpret these as normal with a touch of variability which is not unexpected. Called pt's home and cell to leave VM I would send her my- message. Looks like plan will be to transition to HCTZ, will plan to do this when Dr Chen returns. Patricia Betancourt MD PGY-4 [facility] Endocrinology Fellow Pager #[phone] documented in this encounter Plan of Treatment Upcoming Encounters Date Type Department Care Team (Late st Contact Info) Description 01/22/2024 10:30 AM EST Appointment Mammography/DXA at [place] [phone] Ladi Mendosa MD [facility] HEMATOLOGY/[place] [address] 01/30/2024 11:30 AM EST Office Visit Dermatology at [place] [address] [place] [phone] Nilda Luis MD [facility] [address] [place] [address] 02/15/2024 9:30 AM EST Appointment [place] [address] [place] [address] documented as of this encounter Visit Diagnoses Not on filedocumented in this encounter Care Teams Printer Slotter Operator Relationship Specialty Start Date End Date Trinh Coates MD [facility] [address] [place] [address] PCP - General 01/11/10 documented as of this encounter
--- OUTSIDE RECORDS SUMMARY | 2023-09-07 11:28 | XMS_ITS | Encounter Summary ---
Author Organization [facility] [place] [address] Care Team Providers Care Furniture Assembler And Installer Name Role Phone Trinh Coates MD Primary Care Provider [phone] Encounter Details Date Type Department Care Team (Late st Contact Info) Description 07/31/2018 Telephone Dermatology at [facility] [address] [place] [phone] Katie Lombardo, RN Social History Tobacco Use Types Packs/Day [...] encounter Miscellaneous Notes * Telephone Encounter - Katie Lombardo LPN - 07/31/2018 12:46 PM EDT Patient called back in [facility] to co message. Gave patient results and patient states she is having issues with her potassium right now and was unsure if this could be the cause of the kidney decreased function. Patient asked for labs to be sent to [facility] in [facility] for 08/07/18. Patient asked about coverage for Stelara. According to note in chart Stelara was rejected because of history of malignancy. Patient would like to know her options now. Patient states she is willing to take pills if that iswhat it takes. Told patient I would let Dr. Mann know and he should reach out with further options. documented in this encounter Plan of Treatment Upcoming Encounters Date Type Department Care Team (Late st Contact Info) Description 01/22/2024 10:30 AM EST Appointment Mammography/[place] [phone] Ladi Mendosa MD [facility] HEMATOLOGY/[place] [address] 01/30/2024 11:30 AM EST Office Visit Dermatology at [place] [address] [place] [phone] Nilda Luis MD [facility] [address] [place] [address] 02/15/2024 9:30 AM EST Appointment [place] [phone] [place] [address] documented as of this encounter Visit Diagnoses Diagnosis High risk medication use Encounter for long-term (current) use of other medications documented in this encounter Care Teams Furniture Assembler And Installer Relationship Specialty Start Date End Date Trinh Coates MD [address] [place] [address] PCP - General 01/11/10 documented as of this encounter
--- OUTSIDE RECORDS SUMMARY | 2023-09-07 11:28 | XMS_ITS | Encounter Summary ---
Author Organization Formerly [facility] [address] Care Team Providers Care Aircraft Cleaner Name Role Phone Trinh Coates MD Primary Care Provider [phone] Reason for Referral * Diagnostic Test (Routine) - Closed Specialty Diagnoses / Procedures Referred By Contac t Referred To Contact Radiology Diagnoses S/P breast reconstruction, bilateral Procedures NM Lymphoscintigraphy w Imaging Peripheral Edema Andre Gimenez MD [facility] [place] [address] [place] [address] Referral ID Status Reason Start Date Expiration Date V isits Requested Visits Authorized [id number] Closed Specialty Service Requested 07/24/2018 07/24/2019 1 1 Reason for Visit * Diagnostic Test (Routine) - Closed Specialty Diagnoses / Procedures Referred By Contac t Referred To Contact Radiology Diagnoses S/P breast reconstruction, bilateral Procedures NM Lymphoscintigraphy w Imaging Peripheral Edema Andre Gimenez MD [facility] [place] [address] [place] [address] Referral ID Status Reason Start Date Expiration Date V isits Requested Visits Authorized [id number] Closed Specialty Service Requested 07/24/2018 07/24/2019 1 1 Encounter Details Date Type Department Care Team (Latest Contact Info) Description 08/14/2018 9:47 AM EDT Hospital Encounter Nuclear Medicine at [facility] [place] [address] Andre Gimenez MD [facility] [place] [address] S/P breast reconstruction, bilateral Discharge Disposition: Home [...] 01/22/2024 10:30 AM EST Appointment Mammography/[place] [address] Ladi Mendosa MD [facility] DR HEMATOLOGY/[place] [address] 01/30/2024 11:30 AM EST Office Visit Dermatology at [facility] [address] [place] [address] Nilda Luis MD [facility] DR L[place] [place] [address] 02/15/2024 9:30 AM EST App[place]ment [place] [phone] [place] [address] documented as of this encounter Procedures Procedure [...] below. ? Electronically signed by: Marilin Weinberg [facility] ([phone]), at 08/14/2018 7:23 PM Narrative 08/14/2018 7:23 [...] number below. Electronically signed by: Marilin Weinberg [facility]([phone]), at 08/14/2018 7:23 PM Andre Gimenez MD [facility] [place]LES documented in this encounter Visit Diagnoses Diagnosis S/P breast reconstruction, bilateral Breast replaced by other means documented in this encounter Administered Medications Inactive Administered Medications - up to 3 most recent administrations Medication Order MAR Action Action Date Dose Rate Site technetium (Tc-99m) sulfur colloid injection 2 mCi 2 mCi, Intradermal, ONCE PRN, 1 dose, Starting on Sun08/14/18 at 1037, Until Sun08/14/18 at 1038, Per Protocol, Routine Given 08/14/2018 10:38 AM EDT 2 mCi documented in this encounter Care Teams Aircraft Cleaner Relationship Specialty Start Date End Date Trinh Coates MD [address] [place] [address] PCP - General 01/11/10 documented as of this encounter
--- OUTSIDE RECORDS SUMMARY | 2023-09-07 11:28 | XMS_ITS | Encounter Summary ---
Author Organization Formerly [facility] [place] [address] Care Team Providers Care Crime Scene Specialist Name Role Phone Trinh Coates MD Primary Care Provider [phone] Encounter Details Date Type Department Care Team (Late st Contact Info) Description 07/31/2018 Telephone Dermatology at [facility] [address] [place] [phone] Katie Lombardo, RN Social History Tobacco Use [...] Encounter - Katie Lombardo LPN - 07/31/2018 12:25 PM EDT Called patient in regards to her lab results. Patient was not available and left message to give usa call back. Patients labs: Negative Hep B & C Negative TB test LFTs normal. Mild elevation in WBCs Kidney fxn decreased would recheck BMP in 2 weeks to reassess CR and GFR documented in this encounter Plan of Treatment Upcoming Encounters Date Type Department Care Team (Late st Contact Info) Description 01/22/2024 10:30 AM EST Appointment Mammography/[place] [address] Ldai Mendosa MD [facility] HEMATOLOGY/[place] [address] 01/30/2024 11:30 AM EST Office Visit Dermatology at [facility] [address] [place] [phone] Nilda Luis MD [facility] [address] [place] [address] 02/15/2024 9:30 AM EST Appointment Radiology at [place] [phone] [place] [address] documented as of this encounter Visit Diagnoses Diagnosis High risk medication use Encounter for long-term (current) use of other medications documented in this encounter Care Teams Crime Scene Specialist Relationship Specialty Start Date End Date Trinh Coates MD [facility] [address] [place] [address] PCP - General 01/11/10 documented as of this encounter
--- OUTSIDE RECORDS SUMMARY | 2023-09-07 11:29 | XMS_ITS | Encounter Summary ---
[place] [address] Care Team Providers Care Invoice Control Clerk Name Role Phone Trinh Coates MD Primary Care Provider [phone] Encounter Details Date Type Department Care Team (Late st Contact Info) Description 12/14/2017 Telephone Hematology [place] [address] Arpita Culver, RN Social History Tobacco Use Types Packs/Day [...] Miscellaneous Notes * Telephone Encounter - Arpita Culver, RN - 12/14/2017 2:07 PM EDT Request received from pt's Physical Therapist requesting order for a LUE compression sleeve 20-30 mmHg and L hand gauntlet/glove. Order placed, signed by provider & faxed to Joyce Perry PT @ with confirmation received. documented in this encounter Plan of Treatment Upcoming Encounters Date Type Department Care Team (Late st Contact Info) Description 01/22/2024 10:30 AM EST Appointment Mammography/[place] [address] Ladi Mendosa MD [facility] [place]ATOLOG[place] [address] 01/30/2024 11:30 AM EST Office Visit Dermatology at [facility] [address] [place] [phone] Nilda Luis MD [facility] [address] [place] [address] 02/15/2024 9:30 AM EST Appointment Radiology at [place] [phone] [place] [address] documented as of this encounter Visit Diagnoses Diagnosis History of breast cancer Personal history of malignant neoplasm of breast documented in this encounter Care Teams Invoice Control Clerk Relationship Specialty Start Date End Date Trinh Coates MD [facility] [address] [address] PCP - General 01/11/10 documented as of this encounter
--- OUTSIDE RECORDS SUMMARY | 2023-09-07 11:29 | XMS_ITS | Encounter Summary ---
Author Organization [facility] Address [facility] [place] [address] Care Team Providers Care Senior Talent Acquisition Specialist Name Role Phone Trinh Coates MD Primary Care Provider [phone] Reason for Visit * Reason Comments Follow Up Surgery s/p bilat expanders Encounter Details Date Type Department Care Team (Late st Contact Info) Description 12/05/2017 8:40 AM EDT Office [place] [address] Jolene Azevedo APRN [facility] [place] [address] S/P breast reconstruction, bilateral Social History Tobacco [...] Progress Notes * Jolene Azevedo APRN - 12/05/2017 8:40 AM EDT Plastic Surgery Follow Up Note Date of surgery: 04/26/17 Procedure(s): Bilateral breast reconstruction with attempted SALVADOR flaps, eventual tissue manager trust placement with [facility] [employer] 600 cc expanders placed bilaterally and filled with 450 cc of methyleneblue impregnated saline.) Complications: right parietal and visceral pleural tear, arterial flap failure bilaterally Date of surgery: 06/22/17 Procedure(s) left breast wound debridement, excision and closure. Debridement of umbilicus. Deflation of manager trust volume, This leaves 450 cc in the left tissue manager trust and 500 cc on the right side Chemotherapy: yes - last dose 11/15 Radiation: yes. On left side. Anticipated timeline: chemotherapy completion, when recovered will have expanders removed and permanent implants placed, approximately 3 weeks later will begin radiation. HPI: Pt reports she has been well since her last visit. She is scheduled for implant exchange on 12/14. She has an appointment with her oncology team later today. Examination: Patient is alert, conversant, comfortable, ambulating Tissue expanders in place. Drain remains in place with serous fluid in bag. Drain site free of signs of infection. Drain removed today. Impression: Wendy Sandoval is a 52 y.o. female who was seen today for follow- up after the above procedure. Please see the operative note for details. Dr. Gimenez in to discuss next stage with Wendy and her . They discussed implant swap onlyvs latissimus flap at time of exchange. Plan: Surgical scheduling (implant exchange and bilateral latissimus dorsi flaps) Surgeon: Ammy Duration: 5 hours + 2 night stay Timeframe: elective Procedure: revision of breast reconstruction with bilateral latissimus dorsi flaps, placement of permanent implants, capsulotomies CPT: 56461, 93975, 67537, [address] Surgical site: Breasts, back Side: iain Anesthesia: General Follow up: 10-14 Days After discharge AEE PAT: No Implants needed: 3x [id number] 350CC 12.3 RSZ-LFI429N MSEU163 370CC 12.6 RSZ-LOL946R PDJY861 405CC 12.7 RSZ-ZRJ293X OTBA655 440CC 13.1 RSZ-EMV121T CRME020 465CC 13.3 RSZ-YSO031C QHXR487 490CC 13.6 RSZ-BPN688O RPPR725 525CC 13.9 RSZ-QBQ353W ZJBT347 545CC 14 RSZ-XYQ406L HXCJ472 560CC 14.3 RSZ-LUI425I TGHT219 605CC 14.5 RSZ-ORT443V I, Nimo Llamas, have performed the documentation for this encounter in the presence of and actingas a scribe for Jolene Azevedo APRN. I performed the services which were documented by the scribe, and I agree with the accuracy of the documentation in this encounter. JOLENE AZEVEDO APRN documented in this encounter Plan of Treatment Upcoming Encounters Date Type Department Care Team (Late st Contact Info) Description 01/22/2024 10:30 AM EST Appointment Mammography/DXA at [place] [phone] Ladi Mendosa MD [facility] HEMATOLOGY/[place] [address] 01/30/2024 11:30 AM EST Office Visit [address]atology [address] [place] [phone] Nilda Luis MD [facility] DR [address] [place] [address] 02/15/2024 9:30 AM EST [place] [address] [place] [address] documented as of this encounter Visit Diagnoses Diagnosis S/P breast reconstruction, bilateral Breast replaced by other means documented in this encounter Care Teams Senior Talent Acquisition Specialist Relationship Specialty Start Date End Date Trinh Coates MD [facility] [address] [place] [address] PCP - General 01/11/10 documented as of this encounter
--- OUTSIDE RECORDS SUMMARY | 2023-09-07 11:29 | XMS_ITS | Encounter Summary ---
Author Organization [facility] Address [facility] [place] [address] Care Team Providers Care Supervising Airplane Pilot Name Role Phone Trinh Coates MD Primary Care Provider [phone] Reason for Visit * Reason Comments On Treatment Visit Encounter Details Date Type Department Care Team (Late st Contact Info) Description 02/13/2018 10:00 AM EST Office Visit Radiation Oncology at [address] [phone] Emily Choi MD [facility] [place] [address] Malignant neoplasm of upper-outer quadrant [...] Sign Reading Time Taken Comments Blood Pressure 159/114 02/13/2018 11:14 AM EST Pulse 85 02/13/2018 11:14 AM EST Temperature 36.8 ??C (98.2 ??F) 02/13/2018 11:[address] Respiratory Rate 18 02/13/2018 11:14 AM EST Oxygen Saturation 100% 02/13/2018 11:14 AM EST Inhaled Oxygen Concentration - - Weight 78.3 kg (172 lb 9.6 oz) 02/13/2018 11:14 AM EST Height 152.4 cm (5') 02/13/2018 11:14 AM EST Body Mass Index 33.71 02/13/2018 11:14 AM EST documented in this encounter Progress Notes * Emily Choi MD - 02/13/2018 10:00 AM EST Images from the original note were not included. DIAGNOSIS: Breast ca, L, IDC, gr 3, ER+OK+, 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 Adjuvant chemo then given, followed by director professional services exchange for implants. CURRENT TREATMENT DOSE: 19.8 Gy L supraclav, L axilla & L reconstructed breast/chest wall ANTICIPATED TOTAL DOSE: 50.4 Gy L supraclav, L axilla & L reconstructed breast/chest wall Current # of xrt received: 11 L supraclav, L axilla & L reconstructed breast/chest wall Anticipated total # of xrt txs: 28 L supraclav, L axilla & L reconstructed breast Evaluation of port verification films: Approved. For details, see electronic film record in [facility]. Changes in Medical Condition: No change in small red spots on L post shoulder & along L side ofchest. No itchiness. Pain?: No. Your Medications Accurate as of 02/13/18 11:46 AM. If you have any questions, ask your [...] 2 hours before a treatment. Refills: 0 dexamethasone 4 mg Tab Commonly known as: DECADRON Take 1 tablet by mouth 2 times daily (with meals). 4 mg Quantity: 20 tablet Refills: 0 dilTIAZem 240 mg Cp24 Commonly known as: CARDIZEM CD Take 1 capsule by mouth daily. 1 capsule Refills: 0 ferrous gluconate 324 mg (37.5 mg iron) Tab Take 324 mg by mouth daily. 324 mg Refills: 0 FLUoxetine 40 mg Cap Commonly known as: PROzac daily. Refills: 0 gabapentin 100 mg Cap Commonly known as: NEURONTIN Take 1 capsule by mouth nightly as needed. If no benefit after a week, can increase to 200mg, then 300mg at night if not too sedating. 100 mg Quantity: 60 capsule Refills: 2 LORazepam 0.5 mg Tab Commonly known as: [...] 40 mg Quantity: 90 capsule Refills: 11 oxyCODONE 5 mg Tab Commonly known as: ROXICODONE Take 1 tablet by mouth every 6 hours as needed for Pain (moderate pain (4-6)). 5 mg Quantity: 8 tablet Refills: 0 potassium chloride 20 mEq Tbsr take 3 tablets by mouth daily Refills: 0 tamoxifen 20 mg Tab Commonly known as: NOLVADEX Take 1 tablet by mouth daily. Start 2-3 weeks after radiation therapy is completed. 20 mg Quantity: 90 tablet Refills: 3 triamcinolone 0.5 % Crea Commonly known as: ARISTOCORT Apply topically 3 times daily. Refills: 0 Vitamin D-3 5,000 unit Tab Take by mouth. Generic drug: cholecalciferol (Vitamin D3) Refills: 0 Physical Exam: BP (!) 159/114 (Patient Position: Sitting) Pulse 85 Temp 36.8 ??C (98.2 ??F) (Oral) Resp 18 Ht 152.4 cm (5') Wt 78.3 kg (172 lb 9.6 oz) SpO2 100% BMI 33.71 kg/m?? A&Ox3, NAD. 1-2 mm erythematous excoriations on L post shoulder consistent w/folliculitis due to xrt. Multiple (4) 0.5-1.0 cm erythematous round lesions on L lateral chest wall in mid axillary line; the m ost inferior 2 lesions being @ drain site scars & the most inferior of these 2 is the largest of the 4 lesions & is crusted. Minimal erythema of rest of irrad'd area. L arm & hand in ritika wrap. Imagin01/16/18 Dx'ic Rad Interp CTsim: No acute infxn/met dz. No complication of recent mastectomies/lymphadenectomies w/B silicone breast implant placement. Performance Status: KPS 90% Response to xrt: As expected. Irradiation Related Symptoms: Skin rxn. Treatment for Symptom Control: Ander's cream. Pain Management: Not needed. Recommendation on Continuing Course of xrt: Cont. Follow erythematous lesions on lateral L chest wall closely. She started a new antihypertensive med today & she plans to inform her PCP of today's bp. documented in this encounter Plan of Treatment Upcoming Encounters Date Type Department Care Team (Late st Contact Info) Description 01/22/2024 10:30 AM EST Appointment Mammography/[place] [address] Ladi Mendosa MD [facility] HEMATOLOGY/ONCOLOGY [place], [place] [phone] 01/30/2024 11:30 AM EST Office Visit Dermatology at [address] [place] [phone] Nilda Luis MD [facility] DR L[address] AGUILAR-DERMATOLGY [place], [place] [phone] 02/15/2024 9:30 AM [place] [address] Joanna Watts MD [place], [place] [phone] documented as of this encounter Visit Diagnoses Diagnosis Malignant neoplasm of upper-outer quadrant of left female breast, unspecified estrogen receptor status documented in this encounter Care Teams Supervising Airplane Pilot Relationship Specialty Start Date End Date Trinh Coates MD [address] [place] [address] PCP - General 01/11/10 documented as of this encounter
--- OUTSIDE RECORDS SUMMARY | 2023-09-07 11:29 | XMS_ITS | Encounter Summary ---
Author Organization [facility] Address [facility] [place] [address] Care Team Providers Care High Climber Name Role Phone Trinh Coates MD Primary Care Provider [phone] Reason for Referral * Consultation (Routine) - Specialty Diagnoses / Procedures Referred By Diamante marin Referred To Contact Radiation Oncology Diagnoses Malignant neoplasm of upper-outer quadrant of left female breast, unspecified estrogen receptor status Procedures Simulation for Radiation Therapy Planning PRG RADIATION THERAPY PLAN COMPLEX PRG SPECIAL RADIATION TREATMENT PRG SET RADIATION THERAPY FIELD COMPLEX PRG RADIATION TREATMENT AID(S) INTERM PRG SET RADIATION THERAPY FIELD 3D RECON PRG RESPIRATORY MOTION MANAGEMENT PLANNING PRG BASIC RADIATION DOSIMETRY CALCULATION PRG RADIATION TREATMENT AID(S) COMPLX PRG SET RADIATION THERAPY FIELD SIMPLE CHG RADN RX DELIVERY COMPLX =<5 MEV RADIOLOGY PORT FILM(S) CHG RADN PHYSICS CONSULT CONTINUING PRG RADIATION MANAGEMENT, 5 TREATMENTS [address] Emily Choi MD [facility] [place] [address] St Rad Onc Office [address] [place] [phone] Referral ID Status Reason Start Date Expiration Date V isits Requested Visits Authorized [id number] Consult, Test & Treat 01/01/2018 04/22/2018 28 28 Encounter Details Date Type Department Care Team (Late st Contact Info) Description 12/18/2017 Orders Only Radiation Oncology at [address] [phone] Emily Choi MD [facility] [place] [address] Malignant neoplasm of upper-outer quadrant of left [...] 01/22/2024 10:30 AM EST Appointment Mammography/[place] [phone] Ladi Mendosa MD [facility] DR HEMATOLOGY/[place] [address] 01/30/2024 11:30 AM EST Office Visit Dermatology at [address] [phone] Nilda Luis MD [facility] DR [place] [address] 02/15/2024 9:30 AM EST [place] [phone] [place] [address] Scheduled Orders Name Type Priority Associated Diagnoses Orde r Schedule Simulation for Radiation Therapy Planning Procedures Routine Malignant neoplasm of upper-outer quadrant of left female breast, unspecified estrogen receptor status Ordered: 12/18/2017 documented as of this encounter Visit Diagnoses Diagnosis Malignant neoplasm of upper-outer quadrant of left female breast, unspecified estrogen receptor status documented in this encounter Care Teams High Climber Relationship Specialty Start Date End Date Trinh Coates MD [address] [facility] [address] [place] [address] PCP - General 01/11/10 documented as of this encounter
--- OUTSIDE RECORDS SUMMARY | 2023-09-07 11:29 | XMS_ITS | Encounter Summary ---
Author Organization [facility] Address [facility] [place] [address] Care Team Providers Care Market Maker Name Role Phone Trinh Coates MD Primary Care Provider [phone] Reason for Referral * Consultation (Routine) - Duplicate Referral Specialty Diagnoses / Procedures Referred By Diamante marin Referred To Contact Radiation Oncology Diagnoses Malignant neoplasm of upper-outer quadrant of left female breast, unspecified estrogen receptor status Procedures Simulation for Radiation Therapy Planning Emily Choi MD [facility] [place] [address] St Rad Onc Office [address] [place] [phone] Referral ID Status Reason Start Date Expiration Date Visits Requested Visits Authorized [id number] Duplicate Referral Consult, Test & Treat 8 01/01/2019 1 1 Encounter Details Date Type Department Care Team (Late st Contact Info) Description 01/01/2018 Orders Only Radiation Oncology at [address] [phone] Emily Chio MD [facility] [place] [address] Malignant neoplasm of upper-outer quadrant of left [...] 01/22/2024 10:30 AM EST Appointment Mammography/DXA at [place] [phone] Ladi Mendosa MD [facility] HEMATOLOGY/[place] [address] 01/30/2024 11:30 AM EST Office Visit Dermatology at [address] [place] [phone] Nilda Luis MD [facility] [address] [place] [address] 02/15/2024 9:30 AM EST Appointment Radiology at [place] [phone] [place] [address] Scheduled Orders Name Type Priority Associated Diagnoses Orde r Schedule Simulation for Radiation Therapy Planning Procedures Routine Malignant neoplasm of upper-outer quadrant of left female breast, unspecified estrogen receptor status Ordered: 01/01/2018 documented as of this encounter Visit Diagnoses Diagnosis Malignant neoplasm of upper-outer quadrant of left female breast, unspecified estrogen receptor status documented in this encounter Care Teams Market Maker Relationship Specialty Start Date End Date Trinh Coates MD [address] [place] [address] PCP - General 01/11/10 documented as of this encounter
--- OUTSIDE RECORDS SUMMARY | 2023-09-07 11:29 | XMS_ITS | Encounter Summary ---
Author Organization Formerly [facility] Address [facility] [place] [address] Care Team Providers Care Photovoltaic Technician Name Role Phone Trinh Coates MD Primary Care Provider [phone] Encounter Details Date Type Department Care Team (Late st Contact Info) Description 01/16/2018 Notes Only Radiation Oncology at [address] [phone] Miriam Carrillo, [employer] OFFICE OF CARE MANAGEMENT Social History Tobacco Use Types Packs/Day Years [...] as of this encounter Progress Notes * Miriam Carrillo MSW - 01/16/2018 10:53 AM EST Reason for Referral: Brief assessment of social and emotional needs. Met with pt and after sim today. Social Supports: Pt identified her primary support as her Phillip of 29 years, They have a son and a daughter who are local. Living Situation/Daily Activities/Transportation: Pt manages her daily chores and activities. She lives local and does not expect any issues with transportation. 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 Her schedule is flexible. She has MVP for insurance. Advance Directives: Pt has not completed her advance directive and does not want information about this. Utilization of Community Resources: None at this time. Adjustment to Illness/Mental Health Issues: pt indicated she is coping as best she can. She and report they have good support. Identified Needs: Pt did not identify any specific needs at this time. Referrals: None at this time. Plan: Informed pt of [employer] availability and will follow for support and resources. documented in this encounter Plan of Treatment Upcoming Encounters Date Type Department Care Team (Late st Contact Info) Description 01/22/2024 10:30 AM EST Appointment Mammography/DXA at [place] [phone] Ladi Mendosa MD [facility] HEMATOLOGY/[place] [address] 01/30/2024 11:30 AM EST Office Visit Dermatology at [address] [phone] Nilda Luis MD [facility] DR [address] [address] 02/15/2024 9:30 AM EST [place] [phone] [place] [address] documented as of this encounter Visit Diagnoses Not on filedocumented in this encounter Care Teams Photovoltaic Technician Relationship Specialty Start Date End Date Trinh Coates MD [facility] [address] [place] [address] PCP - General 01/11/10 documented as of this encounter
--- OUTSIDE RECORDS SUMMARY | 2023-09-07 11:29 | XMS_ITS | Encounter Summary ---
Author Organization [facility] Address [facility] [place] [address] Care Team Providers Care Identification And Records Commander Name Role Phone Trinh Coates MD Primary Care Provider [phone] Encounter Details Date Type Department Care Team (Late st Contact Info) Description 03/11/2018 Notes Only Radiation Oncology at [address] [phone] Mayda Calvert, RN Social History Tobacco Use Types Packs/Day [...] as of this encounter Progress Notes * Mayda Calvert RN - 03/11/2018 11:23 AM EST Radiation Oncology Nursing Completion of Treatment Note Pt completed 24 Fxs totaling 5040 cGY to Left supraclavicle, left axilla and left reconstructed breast/chest for breast cancer. . Side effects/problems noted today: Skin reaction. Teaching and discharge instructions reviewed: Reviewed instructions given by Dr. Choi 03/05/18. Expected follow up/referrals: Per Dr. Choi, follow up appointment in 1 month. Patient states thatshe has adequate supply of skin care products. Patient has our contact numbers Patient/family response to instructions: Patient verbalized understanding of these instructions. documented in this encounter Plan of Treatment Upcoming Encounters Date Type Department Care Team (Late st Contact Info) Description 01/22/2024 10:30 AM EST Appointment Mammography/DXA at [place] [phone] Ladi Mendosa MD [facility] HEMATOLOGY/[place] [address] 01/30/2024 11:30 AM EST Office Visit Dermatology at [address] [place] [phone] Nilda Luis MD [facility] DR [address] [address] 02/15/2024 9:30 AM EST Appointment [place] [phone] [place] [address] documented as of this encounter Visit Diagnoses Not on filedocumented in this encounter Care Teams Identification And Records Commander Relationship Specialty Start Date End Date Trinh Coates MD [facility] [address] [place] [address] PCP - General 01/11/10 documented as of this encounter
--- OUTSIDE RECORDS SUMMARY | 2023-09-07 11:29 | XMS_ITS | Encounter Summary ---
Author Organization [facility] [place] [address] Care Team Providers Care Field Aide Name Role Phone Trinh Coates MD Primary Care Provider [phone] Reason for Visit * Reason Comments Follow Up Surgery Encounter Details Date Type Department Care Team (Late st Contact Info) Description 01/02/2018 10:40 AM EST Office [place] [phone] Jolene Azevedo APRN [facility] [place] [address] Surgery follow-up Social History Tobacco Use Types [...] this encounter Patient Instructions * Patient Instructions* Jolene Azevedo APRN - 01/02/2018 10:40 AM EST Follow up after radiation. Sooner with any questions or concerns from the patient or her radiation team. Physical Therapy for Lymphedema management and arm ROM. May take Ibuprofen and Tylenol. Oxycodone as needed for breakthrough pain. Leave drain site dressing in place for 24 hours. Then may remove for shower. Replace dressing as needed for drainage. Do not lift, push or pull more than 5 pounds. documented in this encounter Progress Notes * Jolene Azevedo APRN - 01/02/2018 10:40 AM EST Plastic Surgery Follow Up Note [...] and closure. Debridement of umbilicus. Deflation of hr generalist volume, This leaves 450 cc in the left tissue hr generalist and 500 cc on the right side Date of surgery: 04/26/17 Procedure(s): Bilateral breast reconstruction with attempted SALVADOR flaps, eventual tissue hr generalist placement with [place] Art[place]ra 600 cc expanders placed bilaterally and filled with 450 cc of methyleneblue impregnated saline.) Complications: right parietal and visceral pleural tear, arterial flap failure bilaterally Chemotherapy: yes - last dose 11/15 Radiation: yes. On left side. HPI: Pt reports that she is doing ok. She is here with her daughter at today's visit. Drain output has been 10-30 mls per day per day for 5 days. She had a visit with Dr. Mendoza yesterday. Her simulation was not done due to having her drains in place. She will be seeing Physical Therapy to help with her ROM with her arms. Examination: Patient is alert, conversant, comfortable, ambulating Breasts are soft and symmetric. Breast incisions intact with Prolene sutures removed today. Back incisions intact. All Drains in place x 4. Serous fluid in bulbs. Drains removed today. Impression: Wendy Sandoval is a 52 y.o. female who was seen today for follow- up after the above procedure. Healing very well. No signs or concerns of infection. Plan: Follow up after radiation. Sooner with any questions or concerns from the patient or her radiation team. Physical Therapy for Lymphedema management and arm ROM. May take Ibuprofen and Tylenol. Oxycodone as needed for breakthrough pain. Leave drain site dressing in place for 24 hours. Then may remove for shower. Replace dressing as needed for drainage. Do not lift, push or pull more than [address] Gimenez in to examine patient. He agrees with this plan. documented in this encounter Plan of Treatment Upcoming Encounters Date Type Department Care Team (Late st Contact Info) Description 01/22/2024 10:30 AM EST Appointment Mammography/DXA at [place] [phone] Ladi Mendosa MD [facility] HEMATOLOGY/[place] [address] 01/30/2024 11:30 AM EST Office Visit Dermatology at [address] [phone] Nilda Luis MD [facility] DR [address] [place] [address] 02/15/2024 9:30 AM EST [place] [phone] [place] [address] documented as of this encounter Visit Diagnoses Diagnosis Surgery follow-up Follow-up examination, following unspecified surgery documented in this encounter Care Teams Field Aide Relationship Specialty Start Date End Date Trinh Coates MD [address] [place] [address] PCP - General 01/11/10 documented as of this encounter
--- OUTSIDE RECORDS SUMMARY | 2023-09-07 11:29 | XMS_ITS | Encounter Summary ---
Author Organization Formerly [facility] Address [facility] [place] [address] Care Team Providers Care Semiconductor Packages Sealer Name Role Phone Trinh Coates MD Primary Care Provider [phone] Reason for Visit * Reason Comments On Treatment Visit Encounter Details Date Type Department Care Team (Late st Contact Info) Description 02/20/2018 10:30 AM EST Office Visit Radiation Oncology at [address] [phone] Emily Choi MD [facility] [place] [address] Malignant neoplasm of upper-outer quadrant [...] Sign Reading Time Taken Comments Blood Pressure 156/101 02/20/2018 10:00 AM EST Pulse 76 02/20/2018 10:00 AM EST Temperature 37 ??C (98.6 ??F) 02/20/2018 10:00 AM EST Respiratory Rate 16 02/20/2018 10:00 AM EST Oxygen Saturation 98% 02/20/2018 10:00 AM EST Inhaled Oxygen Concentration - - Weight 79 kg (174 lb 3.2 oz) 02/20/2018 10:00 AM EST Height - - Body Mass Index 34.02 02/13/2018 11:14 AM EST documented in this encounter Progress Notes * Emily Choi MD - 02/20/2018 10:30 AM EST Images from the original note were not included. DIAGNOSIS: Breast ca, L, IDC, gr 3, ER+MO+, 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 Adjuvant chemo then given, followed by sausage stringer exchange for implants. CURRENT TREATMENT DOSE: 27 Gy L supraclav, L axilla & L reconstructed breast/chest wall ANTICIPATED TOTAL DOSE: 50.4 Gy L supraclav, L axilla & L reconstructed breast/chest wall Current # of xrt received: 15 L supraclav, L axilla & L reconstructed breast/chest wall Anticipated total # of xrt txs: 28 L supraclav, L axilla & L reconstructed breast Evaluation of port verification films: Approved. For details, see electronic film record in [employer] System. Changes in Medical Condition: New red spots UIQ L breast. No change in small red spots on L post shoulder & along L side of chest. No itchiness. She is keeping Dr. Coates informed of her bp readings from this clinic. Pain?: No. Your Medications Accurate as of 02/20/18 11:06 AM. If you have any questions, ask [...] D3) Refills: 0 Physical Exam: BP (!) 156/101 (Patient Position: Sitting) Pulse 76 Temp 37 ??C (98.6 ??F) (Oral) Resp 16 Wt 79 kg (174 lb 3.2 oz) SpO2 98% BMI 34.02 kg/m?? A&Ox3, NAD. Folliculitis UIQ L breast & on L post shoulder. Multiple (4) 0.5-1.0 cm erythematous round lesions on L lateralchest wall in mid axillary line; the most inferior 2 lesions being @ drain site scars & the most inferior of these 2 is the largest of the 4 lesions & is crusted. Mild erythema of rest of irrad'd area. L [...] lesions on lateral L chest wall closely. documented in this encounter Plan of Treatment Upcoming Encounters Date Type Department Care Team (Late st Contact Info) Description 01/22/2024 10:30 AM EST Appointment Mammography/[place] [phone] Ladi Mendosa MD [facility] DR HEMATOLOGY/[place] [address] 01/30/2024 11:30 AM EST Office Visit Dermatology at [address] [phone] Nilda Luis MD [facility] DR [place] [address] 02/15/2024 9:30 AM EST Appointment [place] [phone] Joanna Watts MD [place], [place] [phone] documented as of this encounter Visit Diagnoses Diagnosis Malignant neoplasm of upper-outer quadrant of left female breast, unspecified estrogen receptor status documented in this encounter Care Teams Semiconductor Packages Sealer Relationship Specialty Start Date End Date Trinh Coates MD [address] [place] [address] PCP - General 01/11/10 documented as of this encounter
--- OUTSIDE RECORDS SUMMARY | 2023-09-07 11:29 | XMS_ITS | Encounter Summary ---
Author Organization [facility] Address [facility] [place] [address] Care Team Providers Care Plate Keeper Name Role Phone Trinh Coates MD Primary Care Provider [phone] Reason for Visit * Reason Comments On Treatment Visit Encounter Details Date Type Department Care Team (Late st Contact Info) Description 02/26/2018 10:00 AM EST Office Visit Radiation Oncology at [address] [phone] Emily Choi MD [facility] [place] [address] Malignant neoplasm of upper-outer quadrant [...] Sign Reading Time Taken Comments Blood Pressure 140/94 02/26/2018 11:00 AM EST Pulse 82 02/26/2018 11:00 AM EST Temperature 37.2 ??C (99 ??F) 02/26/2018 11:00 AM EST Respiratory Rate 18 02/26/2018 11:00 AM EST Oxygen Saturation 100% 02/26/2018 11:00 AM EST Inhaled Oxygen Concentration - - Weight - - Height - - Body Mass Index - - documented in this encounter Progress Notes * Emily Choi MD - 02/26/2018 10:00 AM EST Images from the original note were not included. 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 Adjuvant chemo then given, followed by coater brake linings exchange for implants. CURRENT TREATMENT DOSE: 34.2 Gy L supraclav, L axilla & L reconstructed breast/chest wall ANTICIPATED TOTAL DOSE: 50.4 Gy L supraclav, L axilla & L reconstructed breast/chest wall Current # of xrt received: 19 L supraclav, L axilla & L reconstructed breast/chest wall Anticipated total # of xrt txs: 28 L supraclav, L axilla & L reconstructed breast Evaluation of port verification films: Approved. For details, see electronic film record in [employer] System. Changes in Medical Condition: No change in small red spots on L post shoulder & along L side ofchest. Minimal itchiness UIQ L breast. She is keeping Dr. Coates informed of her bp readings from this clinic. Pain?: No. Your Medications Accurate as of 02/26/18 11:42 AM. If you have any questions, ask [...] capsule by mouth at bedtime Refills: 0 LORazepam 0.5 mg Tab Commonly [...] provider to review them with you. Physical Exam: BP (!) 140/94 Pulse 82 Temp 37.2 ??C (99 ??F) Resp 18 SpO2 100% A&Ox3, NAD. Folliculitis UIQ L breast & on L post shoulder. Multiple (4) 0.5-1.0 cm erythematous round lesions on L lateral chest wall in mid axillary line; the most [...] 01/22/2024 10:30 AM EST Appointment Mammography/DXA at [place] [phone] Ladi Mendosa MD [facility] HEMATOLOGY/[place] [address] 01/30/2024 11:30 AM EST Office Visit Dermatology at [address] [phone] Nilda Luis MD [facility] DR LID[address] [place] [address] 02/15/2024 9:30 AM EST Appointment [place] [phone] [place] [address] documented as of this encounter Visit Diagnoses Diagnosis Malignant neoplasm of upper-outer quadrant of left female breast, unspecified estrogen receptor status documented in this encounter Care Teams Plate Keeper Relationship Specialty Start Date End Date Trinh Coates MD [address] [facility] [address] [place] [address] PCP - General 01/11/10 documented as of this encounter
--- OUTSIDE RECORDS SUMMARY | 2023-09-07 11:29 | XMS_ITS | Encounter Summary ---
Author Organization [facility] Address [facility] [place] [address] Care Team Providers Care Custodial Services Manager Name Role Phone Trinh Coates MD Primary Care Provider [phone] Reason for Visit * Auth/Cert Specialty Diagnoses / Procedures Referred By Diamante t Referred To Contact Diagnoses Malignant neoplasm of upper-outer quadrant of left female breast Estrogen receptor positive status (ER+) hx of breast cancer Procedures PRO REVISE BREAST RECONSTRUCTION PRO REPLACE TISSUE LINTING MACHINE OPERATOR PRO SURGERY OF BREAST CAPSULE REVISION OFRECONSTRUCTED BREAST, SUSAN (WRVU 10.41) TISSUE LINTING MACHINE OPERATOR REPLACEMENT, WITH PERMANENT PROSTHESIS, SUSAN (WRVU 8.01) BREAST, CAPSULOTOMY, OPEN PERIPROSTHETIC -SUSAN (WRVU 9.17) Referral ID Status Reason Start Date Expiration Date Visits Re quested Visits Authorized [id number] 1 1 Encounter Details Date Type Department Care Team (Latest Contact Info) Description 12/12/2017 1:02 PM EDT - 12/16/2017 4:31 PM EDT Hospital Encounter [address] [place] [address] Mali Lakhani MD [facility] [place] [address] Discharge Disposition: Home Social History Tobacco Use [...] Sign Reading Time Taken Comments Blood Pressure 161/105 12/16/2017 12:10 PM EDT RN notified Pulse 81 12/12/2017 10:15 PM EDT Temperature 36.8 ??C (98.2 ??F) 12/16/2017 1 2:10 PM EDT Respiratory Rate 16 12/16/2017 12:1 0 PM EDT Oxygen Saturation 97% 12/16/2017 12: 10 PM EDT Inhaled Oxygen Concentration - - Weight 86.8 kg (191 lb 4.8 oz) 12/13/19 18 11:16 PM EDT Height 152.4 cm (5') 12/12/2017 11:16 PM EDT Body Mass Index 37.36 12/12/2017 11:16 PM EDT documented in this encounter Discharge Summaries * Kaveh Whiteside MD - 12/16/2017 8:23 AM EDT Inpatient - Discharge Summary Patient Name: Wendy Sandoval Patient Age: 52 y.o. Birthdate: 1965 Admit date: 12/12/2017 Discharge date and time: 12/16/17 Attending Physician: Mali Lakhani MD Discharge Diagnoses (Hospital Problems) and Secondary Diagnoses (Chronic Problems): Active Hospital Problems Diagnosis ??? History of breast cancer Resolved Hospital Problems No resolved problems to display. Active Non-Hospital Problems Diagnosis ??? Seroma of breast ??? Bacterial conjunctivitis ??? Hypokalemia ??? Surgery follow-up ??? Abdominal wound dehiscence ??? S/P breast reconstruction, bilateral ??? Malignant neoplasm of upper-outer quadrant of left breast in female, estrogen receptor positive ??? Hyperparathyroidism ??? Obstructive sleep apnea (adult) (pediatric) ??? OA (osteoarthritis) ??? Overweight(278.02) ??? Hypertension ??? Depression ? ? Acute kidney injury- abrupt increase of sCr of > 0.3 mg/dl, or decreased urine output (< 0.5 mg/kg/hr for more than 6 hours) Operations/Major Procedures: Operations: Procedure(s) with comments: REVISION OFRECONSTRUCTED BREAST, SUSAN (WRVU 10.41) - Surgeon: Ammy Duration: 5 hours + 2 night stay Timeframe: elective Procedure: revision of breast reconstruction with bilateral latissimus dorsi flaps, placement of permanent implants, capsulotomies CPT: 28394, 12565, 27615, 28274 Surgical site: Breasts, back Side: susan Anesthesia: General Follow up: 10-14 Days After discharge AEE PAT: No Implants needed: 3x @BREAST RECONSTRUCTION W/ LAT DORSI FLAP,W/O IMPLANT, SUSAN (WRVU 23.36) 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 Date of surgery: 06/22/17 Procedure(s) left breast wound debridement, excision and closure. Debridement of umbilicus. Deflation of loin puller volume, This leaves 450 cc in the left tissue loin puller and 500 cc on the right side ?? Chemotherapy: yes - last dose 11/15 Radiation: yes. On left side. Anticipated timeline: chemotherapy completion, when recovered will have expanders removed and permanent implants placed, approximately 3 weeks later will begin radiation. ?? Pt reports she has been well since her last visit. She is scheduled for implant exchange on 12/14. She has an appointment with her oncology team later today. Hospital Course: Patient was admitted following above listed procedures. Patient did exceedingly well. By morning ofPOD1 pt was ambulating well. Patient was urinating spontaneously and was taking adequate PO. Her Creatinine was noted to be elevated, which resolved on subsequent labs following IVF hydration (Acute k idney injury- abrupt increase of sCr of > 0.3 mg/dl, or decreased urine output (< 0.5 mg/kg/hr for more than 6 hours). Her potassium also required supplementation this admission. By POD 4, her pain was well controlled on PO meds and Patient was discharged to home. She has all 4 drains intact on discharge. Pending Studies and Lab Data: No current labs Discharge Conditions/Prognosis: stable Discharge to: home Discharge Medications: Your Medications New Medications Dose Details oxyCODONE 5 mg Tab Commonly known as: ROXICODONE Take 1 tablet by mouth every 3 hours as needed for Pain (moderate pain (4-6)). 5 mg Quantity: 20 tablet Refills: 0 Continued medications, unchanged Dose Details acetaminophen 325 [...] as needed. Quantity: 60 g Refills: 3 dexamethasone 4 mg Tab Commonly known as: [...] Generic drug: cholecalciferol (Vitamin D3) Refills: 0 STOPPED Medications Lactobacillus 0.5 mg (100 million cell) Tab Commonly known as: BACID Updated Allergies/ADRs: Allergies Allergen Reactions ??? Zoloft [Sertraline] PSORIASIS FLARE Instructions Given to Patient at Discharge: Patient Instructions PLASTIC SURGERY DISCHARGE INSTRUCTIONS WOUND CARE: No showering til drains are removed, you may sponge off remainder of body, wash hair without getting drains wet. This is to prevent water and bacteria tracking in along the drains to the implants. Do not submerge in water until cleared by MD. Record drain amount daily and bring the record with you to clinic. You must avoid sunlight exposure to your incision(s). Do not use ointments on the incisions postoperatively unless instructed by MD. ACTIVITIES: Minimize contact to affected area(s). No heavy lifting until seen by MD. No driving or operating heavy machinery when on narcotics. DIET: Slowly advance diet as tolerated to a regular healthy diet. CALL MD IF: Increased pain, numbness, tingling, weakness, swelling, bruising, bleeding, or any other concerningsigns/symptoms. FOLLOW UP: Future Appointments and Orders Future Appointments and Orders Future Appointments Provider Department Dept Phone 12/24/2017 3:00 PM Emily Choi MD Radiation Oncology at [facility] [phone] 12/25/2017 11:20 AM Jolene Azevedo APRN [facility] [place] [facility] at: [employer] [facility] [phone] 03/12/2018 10:30 AM Lakeisha Reza MD; Flip Angel MD Endocrinology at [place] [facility] at: [employer] [facility] [phone] 06/05/2018 2:30 PM Josias Barnett MD Hematology and Oncology at [place] [facility] at: [employer] [facility] [phone] MEDICATIONS: Your Medications New Medications Dose Details oxyCODONE 5 mg Tab Commonly known as: ROXICODONE Take 1 tablet by mouth every 3 hours as needed for Pain (moderate pain (4-6)). 5 mg Quantity: 20 tablet Refills: 0 Continued medications, unchanged Dose Details acetaminophen 325 [...] as needed. Quantity: 60 g Refills: 3 dexamethasone 4 mg Tab Commonly known as: [...] Generic drug: cholecalciferol (Vitamin D3) Refills: 0 STOPPED Medications Lactobacillus 0.5 mg (100 million cell) Tab Commonly known as: BACID NARCOTICS: You may be given a prescription for a narcotic medication immediately following your surgery. Narcotics are prescribed for short-term use to help treat your pain. Surgical pain requiring narcotics will usually be greatly decreased 2-3 days after surgery & should be mild to absent by 10-14 days. We will prescribe a narcotic pain reliever for no longer than 1 week following your surgery. This will be determined by your surgeon. Narcotics do not reduce inflammation and it is inflammation that is usually a major cause of pain after surgery. Narcotics have many side effects such as constipation, lightheadedness, dizziness, sedation, confusion, nausea and vomiting. Driving and the use of alcohol are not recommended while you are using narcotic pain medications. Non-steroidal anti-inflammatories (NSAIDS) such as aspirin, Aleve and ibuprofen (Advil, Motrin) aremedications that reduce pain and inflammation. If you find your pain is not adequately controlled with the prescribed dose of your narcotic pain medication, NSAIDS may be used 48 hours after surgery with your narcotic to help alleviate the pain caused by inflammation. As you progress through your post-operative period, your pain should decrease and the use of narcotic medications should be less necessary. To reduce your chance of side effects, it is recommended that you save your narcotic medication for nighttime use and switch to NSAIDS or Acetaminophen (Tylenol) during the day. Alternative means of pain relief such as rest and relaxation, positioning, as well as decreasing stimulants such as coffee, tea, soft drinks, and nicotine may also help to alleviate pain. If you continue to experience significant pain 4-5 days after your procedure, it may be necessary to be re-evaluated by your physician. PRESCRIPTION RENEWALS: Renewal requests should be called in to our prescription line at [phone]. Narcotic renewals may be requested from 8am-4pm Sunday through Sunday. Due to patient safety, narcotic renewals will not be honored after hours or on weekends. It is best to make your request 2-3 days before you run out of your medication as it will take at least 24 hours for physician approval and nurse follow-up. Note that certain prescriptions, such as Percocet, Oxycodone, Vicodin, & Hydrocodone can not becalled in to a pharmacy and must be picked up or mailed to you. If mailed to you, expect 2-5 business days prior to arrival. PRESCRIPTION RENEWALS: Renewal requests should be called in to our prescription line at [phone]. Narcotic renewals may be requested from 8am-4pm Sunday through Sunday. Due to patient safety, narcotic renewals will not be honored after hours or on weekends. It is best to make your request 2-3 days before you run out of your medication as it will take at least 24 hours for physician approval and nurse follow-up. Note that certain prescriptions, such as Percocet, Oxycodone, Vicodin, & Hydrocodone can not becalled in to a pharmacy and must be picked up by the patient. CONTACT INFORMATION: During office hours: Sunday through Sunday 8 am to 5 pm Call [phone] On weekends or after hours: Call [phone] and ask the casing operator to page the Plastic Surgery Resident biodiesel production associate. General Instructions None Future Appointments and Orders Future Appointments and Orders Future Appointments Provider Department Dept Phone 12/24/2017 3:00 PM Emily Choi MD Radiation Oncology at [facility] [phone] 12/25/2017 11:20 AM Jolene Azevedo APRN [facility] [place] [facility] at: [employer] [facility] [phone] 03/12/2018 10:30 AM Lakeisha Reza MD; Flip Angel MD Endocrinology at [place] at: [employer] [facility] [phone] 06/05/2018 2:30 PM Josias Barnett MD Hematology and Oncology at [place] [facility] at: [employer] [facility] [phone] Discharge References/Attachments: Discharge References/Attachments None Electronically Signed By: Kaveh Whiteside MD 12/16/2017 documented in this encounter Discharge Instructions * Patient Instructions* Kaveh Whiteside MD - 12/16/2017 8:22 AM EDT PLASTIC SURGERY DISCHARGE INSTRUCTIONS WOUND CARE: No showering til drains are removed, you may sponge off remainder of body, wash hair without getting drains wet. This is to prevent water and bacteria tracking in along the drains to the implants. Do not submerge in water until cleared by MD. Record drain amount daily and bring the record with you to clinic. You must avoid sunlight exposure to your incision(s). Do not use ointments on the incisions postoperatively unless instructed by MD. ACTIVITIES: Minimize contact to affected area(s). No heavy lifting until seen by MD. No driving or operating heavy machinery when on narcotics. DIET: Slowly advance diet as tolerated to a regular healthy diet. CALL MD IF: Increased pain, numbness, tingling, weakness, swelling, bruising, bleeding, or any other concerningsigns/symptoms. FOLLOW UP: Future Appointments and Orders Future Appointments and Orders Future Appointments Provider Department Dept Phone 12/24/2017 3:00 PM Emily Choi MD Radiation Oncology at [facility] [phone] 12/25/2017 11:20 AM Jolene Azevedo APRN [facility] [place] [facility] at: [employer] [facility] [phone] 03/12/2018 10:30 AM Lakeisha Reza MD; Flip Angel MD Endocrinology at [place] [facility] at: [employer] [facility] [phone] 06/05/2018 2:30 PM Josias Barnett MD Hematology and Oncology at [place] [facility] at: [employer] [facility] [phone] MEDICATIONS: Your Medications New Medications Dose Details oxyCODONE 5 mg Tab Commonly known as: ROXICODONE Take 1 tablet by mouth every 3 hours as needed for Pain (moderate pain (4-6)). 5 mg Quantity: 20 tablet Refills: 0 Continued medications, unchanged Dose Details acetaminophen 325 [...] as needed. Quantity: 60 g Refills: 3 dexamethasone 4 mg Tab Commonly known as: [...] Generic drug: cholecalciferol (Vitamin D3) Refills: 0 STOPPED Medications Lactobacillus 0.5 mg (100 million cell) Tab Commonly known as: BACID NARCOTICS: You may be given a prescription for a narcotic medication immediately following your surgery. Narcotics are prescribed for short-term use to help treat your pain. Surgical pain requiring narcotics will usually be greatly decreased 2-3 days after surgery & should be mild to absent by 10-14 days. We will prescribe a narcotic pain reliever for no longer than 1 week following your surgery. This will be determined by your surgeon. Narcotics do not reduce inflammation and it is inflammation that is usually a major cause of pain after surgery. Narcotics have many side effects such as constipation, lightheadedness, dizziness, sedation, confusion, nausea and vomiting. Driving and the use of alcohol are not recommended while you are using narcotic pain medications. Non-steroidal anti-inflammatories (NSAIDS) such as aspirin, Aleve and ibuprofen (Advil, Motrin) aremedications that reduce pain and inflammation. If you find your pain is not adequately controlled with the prescribed dose of your narcotic pain medication, NSAIDS may be used 48 hours after surgery with your narcotic to help alleviate the pain caused by inflammation. As you progress through your post-operative period, your pain should decrease and the use of narcotic medications should be less necessary. To reduce your chance of side effects, it is recommended that you save your narcotic medication for nighttime use and switch to NSAIDS or Acetaminophen (Tylenol) during the day. Alternative means of pain relief such as rest and relaxation, positioning, as well as decreasing stimulants such as coffee, tea, soft drinks, and nicotine may also help to alleviate pain. If you continue to experience significant pain 4-5 days after your procedure, it may be necessary to be re-evaluated by your physician. PRESCRIPTION RENEWALS: Renewal requests should be called in to our prescription line at [phone]. Narcotic renewals may be requested from 8am-4pm Sunday through Sunday. Due to patient safety, narcotic renewals will not be honored after hours or on weekends. It is best to make your request 2-3 days before you run out of your medication as it will take at least 24 hours for physician approval and nurse follow-up. Note that certain prescriptions, such as Percocet, Oxycodone, Vicodin, & Hydrocodone can not becalled in to a pharmacy and must be picked up or mailed to you. If mailed to you, expect 2-5 business days prior to arrival. PRESCRIPTION RENEWALS: Renewal requests should be called in to our prescription line at [phone]. Narcotic renewals may be requested from 8am-4pm Sunday through Sunday. Due to patient safety, narcotic renewals will not be honored after hours or on weekends. It is best to make your request 2-3 days before you run out of your medication as it will take at least 24 hours for physician approval and nurse follow-up. Note that certain prescriptions, such as Percocet, Oxycodone, Vicodin, & Hydrocodone can not becalled in to a pharmacy and must be picked up by the patient. CONTACT INFORMATION: During office hours: Sunday through Sunday 8 am to 5 pm Call [phone] On weekends or after hours: Call [phone] and ask the casing operator to page the Plastic Surgery Resident biodiesel production associate. documented in this encounter Medications at Time of Discharge Medication Sig Dispensed Refills Start Date End Date losartan (COZAAR) 100 mg Tablet take 1 tablet by mouth once daily 0 10/09/2017 cholecalciferol, Vitamin D3, 125 mcg (5,000 unit) Tablet Take by mouth daily. ferrous gluconate 324 mg (37.5 mg iron) TabletIndications:Prot einuria,Essential hypertension,Hypercalc emia Take 324 mg by mouth daily. fluoxetine (PROZAC) 40 mg capsule Take 40 mg by mouth daily. 10/31/2012 ibuprofen (Motrin) 400 mg tablet Take 1 tab q 6 hrs daily as needed 11/15/2015 gabapentin (NEURONTIN) 100 mg Capsule Take 1 capsule by mouth nightly as needed. If no benefit after a week, can increase to 200mg, then 300mg at night if not too sedating. 60 capsule 2 12/05/2017 05/29/2018 potassium chloride 20 mEq Tablet Sustained Release 1 tablet daily. 0 09/17/2017 07/12/2020 atorvastatin (LIPITOR) 20 mg Tablet Take 1 tablet by mouth daily. 0 03/02/2017 07/12/2020 triamcinolone (ARISTOCORT) 0.5 % CreamIndications:plaqu e psoriasis Apply topically 3 times daily. To hand, elbow and lower back Indications: Plaque Psoriasis 07/24/2018 DILTiazem (CARDIZEM CD) 240 mg Capsule, Sust. Release 24 hr Take 1 capsule by mouth daily. 07/26/2015 10/17/2018 clobetasol (TEMOVATE) 0.05 % CreamIndications:Psori asis Apply to affected areas on knees, elbows and hands twice daily for two week cycles as needed. 60 g 3 04/16/2014 10/20/2019 ferrous sulfate (FeroSul) 325 mg (65 mg iron) tablet 1 tablet. 01/26/2014 05/15/2023 omeprazole (PriLOSEC OTC) [address] tablet 1 CAP daily 03/27/2014 024 oxyCODONE (ROXICODONE) 5 mg Tablet Take 1 tablet by mouth every 3 hours as needed for Pain (moderate pain (4-6)). 20 tablet 12/16/2017 12/25/2017 tamoxifen (NOLVADEX) 20 mg Tablet Take 1 tablet by mouth daily. Start 2-3 weeks after radiation therapy is completed. 90 tablet 3 12/05/2017 05/29/2018 dexamethasone (DECADRON) 4 mg Tablet Take 1 tablet by mouth 2 times daily (with meals). 20 tablet 10/19/2017 02/26/2018 omeprazole (PRILOSEC) 40 mg Capsule, Delayed Release(E.C.) Take 1 capsule by mouth daily. 90 capsule 11 08/23/2017 08/23/2018 acetaminophen (TYLENOL) 325 mg Tablet Take 2 tablets by mouth every 4 hours as needed for Pain. 11/03/2015 07/25/2022 documented as of this encounter Progress Notes * Ailyn Miranda - 12/16/2017 4:31 PM EDT error * Andreea Singleton RN - 12/16/2017 4:29 PM EDT Patient discharge to home. IV [...] Patient discharged to home with family. * Kaveh Whiteside MD - 12/15/2017 9:23 AM EDT PLASTIC SURGERY INPATIENT PROGRESS NOTE ID: Wendy Sandoval is a 52 y.o. female s/p bilateral breast reconstruction and latissimus dorsi flaps. 24/S: -Pain moderately well-controlled -Drains: RAKESH 20cc, LL 95cc, RU 55cc, RL 95cc O: Temp: [36.6 ??C (97.9 ??F)-36.9 ??C (98.4 ??F)] Resp: [16-18] BP: (121-156)/(70-92) Intake/Output Summary (Last 24 hours) at 12/15/2017 0923 Last data filed at 12/15/2017 0530 Gross per 24 hour Intake 360 ml Output 1665 ml Net -1305 ml Lab Results Component Value Date NA 137 12/14/2017 K 3.5 12/14/2017 CL 99 12/14/2017 CO2 22 12/14/2017 BUN 34 (H) 12/14/2017 CREATININE 2.20 (H) 12/14/2017 GLUCOSE 159 12/14/2017 CALCIUM 7.6 (L) 12/14/2017 Lab Results Component Value Date WBC 23.0 (H) 12/13/2017 HGB 9.0 (L) 12/13/2017 HCT 28.4 (L) 12/13/2017 MCV 98.3 (H) 12/13/2017 PLATELET 380 (H) 12/13/2017 Lab Results Component Value Date INR 1.1 11/30/2017 Physical Exam General: resting comfortably, no acute distress HEENT: normocephalic, atraumatic CVS: regular rate Pulm: non-labored breathing Abd: soft, non tender, non distended Neuro: no focal deficits, moving all extremities Incision: Compression bra in place Dressings removed, no evidence of hematoma or infection, appropriately TTP A/P: Wendy Sandvoal is a 52 y.o. female patient s/p b/l breast reconstruction and latissimus flaps. Doing well post-operatively. -f/u AM BMP (Cr, K) - DVT px: lovenox - Activity: OOB, light activity BUE - Dressings: compression bra, posterior dressings removed 12/14 - ok to leave open to air, prolenesout in 2wks - Diet: regular - Dispo: pending post-op course Kaveh Whiteside MD 12/15/2017 Pager: [phone] * Aly Jaimes MD - 12/14/2017 7:06 AM EDT PLASTIC SURGERY INPATIENT PROGRESS NOTE ID: Wendy Sandoval is a 52 y.o. female s/p bilateral breast reconstruction and latissimus dorsi flaps. 24/S: -NAEON -Pain well-controlled -NS infiltrate to R arm IV, arm soft this am, elevated appropriately -HTN improved over prior night -Drains: RAKESH 85cc, LL 120cc, RU 40cc, RL 105cc -K improved to 3.5 this am -Cr bump to 2.2 (1.2) this am O: Temp: [36.6 ??C (97.9 ??F)-36.9 ??C (98.4 ??F)] Resp: [16-18] BP: (127-149)/(73-88) Intake/Output Summary (Last 24 hours) at 12/14/2017 0706 Last data filed at 12/14/2017 0552 Gross per 24 hour Intake 640 ml Output 1195 ml Net -555 ml Lab Results Component Value Date NA 137 12/14/2017 K 3.5 12/14/2017 CL 99 12/14/2017 CO2 22 12/14/2017 BUN 34 (H) 12/14/2017 CREATININE 2.20 (H) 12/14/2017 GLUCOSE 159 12/14/2017 CALCIUM 7.6 (L) 12/14/2017 Lab Results Component Value Date WBC 23.0 (H) 12/13/2017 HGB 9.0 (L) 12/13/2017 HCT 28.4 (L) 12/13/2017 MCV 98.3 (H) 12/13/2017 PLATELET 380 (H) 12/13/2017 Lab Results Component Value Date INR 1.1 11/30/2017 Physical Exam General: resting comfortably, no acute distress HEENT: normocephalic, atraumatic CVS: regular rate Pulm: non-labored breathing Abd: soft, non tender, non distended Neuro: no focal deficits, moving all extremities Incision: Compression bra in place Dressings and Incisions c/d/i, no evidence of hematoma or infection, appropriately TTP A/P: Wendy Sandoval is a 52 y.o. female patient s/p b/l breast reconstruction and latissimus flaps. Doing well post-operatively. -continue to elevate RUE in setting of IV infiltrate -K improved this am, continue po K supplementation -Cr increased at 2.2 this am, continue mIVF -repeat CBC (WBC elevated yesterday am), BMP tomorrow am -HTN improved with better pain control, will assess home meds - DVT px: lovenox - Antibiotics: Ancef while in house - Activity: OOB, light activity BUE - Dressings: compression bra, posterior dressings removed 12/14 - ok to leave open to air, prolenesout in 2wks - Diet: regular - Dispo: pending post-op course Aly Jaimes MD 12/14/2017 Pager: [phone] * Lakia Casey RN - 12/13/2017 8:59 PM EDT Images from the original note were not included. Infiltration/Extravasation Scale Wendy Sandoval [id number]/[id number] Infiltration appearance: Infiltration harm % for this extremity 14 Based on measurement calculation (greatest measurement X divided by length of extremity multiplied by 100= %) Considerations and La: Consider the following: If the percentage of limb affected is <5% then select 1 If the percentage of limb affected is 6-25% then select 2 If the percentage of limb affected is 26-49% then select 3 If the percentage of limb affected is > 50% then always select 4 2 Skin blanched Edema 1 to 6 inches (2.5 to 15 cm) in any direction Cool to touch With or without pain Infiltration appearance score: 2 Medication Name infiltrated is NS / Ancef which is a (n) other Location of infiltration:right arm: anterior Measurement in cm of length and width of affected area---Affected extremity 10 x circumference of arm 22 Measurement of Circumference in cm of Infiltrated area of affected extremity Measurement of Circumference in cm of Unaffected extremity (at same location as affected extremity) Patient has lymphedema RWrist- 22/ RAC- 32 LWrist- 24\ L AC 34 Pulses present on affected extremity yes Medicated treatment given per policy/ order: no treatment indicated Plan for continued monitoring of infiltration/extravasation Name of MD contacted bacilio Braden [phone] 8:59 PM Name of RN contacted Oscar 8:59 PM Name of Pharmacist if consulted NA 8:59 PM Plastics Provider contacted: no 8:59 PM Name of Plastics MD (if consulted) SOLID WASTE MANAGER CARING FOR THIS PATIENT WILL CONTINUE TO MONITOR AND WILL ASSUME CARE, VASCULAR ACCESS WILL NOT FOLLOW THIS EVENT AT THE SIGNING OF THIS NOTE. * Aly Jaimes MD - 12/13/2017 7:41 AM EDT PLASTIC SURGERY INPATIENT PROGRESS NOTE ID: Wendy Sandoval is a 52 y.o. female s/p bilateral breast reconstruction and latissimus dorsi flaps. 24/S: -Pain poorly controlled post-operatively, improved this am following intervention of o/n resident -HTN o/n requiring labetalol x2. Likely 2/2 poor pain control -Some concern of vision changes o/n. Improved upon o/n resident evaluation and resolved this am. -Tolerating po -Treviño in place, to be removed today O: Temp: [36.5 ??C (97.7 ??F)-37 ??C (98.6 ??F)] Heart Rate: [73-87] Resp: [11-19] BP: (136-191)/(85-108) Intake/Output Summary (Last 24 hours) at 12/13/2017 0741 Last data filed at 12/13/2017 0601 Gross per 24 hour Intake 4410.5 ml Output 1395 ml Net 3015.5 ml Lab Results Component Value Date NA 142 12/13/2017 K 3.2 (L) 12/13/2017 CL 103 12/13/2017 CO2 20 (L) 12/13/2017 BUN 14 12/13/2017 CREATININE 1.19 12/13/2017 GLUCOSE 184 12/13/2017 CALCIUM 7.8 (L) 12/13/2017 Lab Results Component Value Date WBC 23.0 (H) 12/13/2017 HGB 9.0 (L) 12/13/2017 HCT 28.4 (L) 12/13/2017 MCV 98.3 (H) 12/13/2017 PLATELET 380 (H) 12/13/2017 Lab Results Component Value Date INR 1.1 11/30/2017 Physical Exam General: resting comfortably, no acute distress HEENT: normocephalic, atraumatic CVS: regular rate Pulm: non-labored breathing Abd: soft, non tender, non distended Neuro: no focal deficits, moving all extremities Incision: Compression bra in place Dressings and Incisions where exposed c/d/i, no evidence of hematoma Some edema at inferior portion of back suture line but without fluid collection A/P: Wendy Sandoval is a 52 y.o. female patient s/p b/l breast reconstruction and latissimus flaps. Doing well post-operatively. -Treviño out today -Ok for blood draws, bp cuff on right arm -Hep lock fluids - DVT px: lovenox - Antibiotics: Ancef while in house - Activity: OOB, light activity BUE - Dressings: to be changed 12/14, prolenes out in 2wks - Diet: regular - Dispo: pending post-op course Aly Jaimes MD 12/13/2017 Pager: [phone] * Andreea Garcia MD - 12/13/2017 12:33 AM EDT Surgery Post Op Check Wendy Sandoval is a 52 y.o. female status post bilateral breast reconstruction, latissimus dorsiflaps (bilateral) S: Complaining of severe pain overlying the lat flap incisions. No nausea/vomiting, chest pain, SOB. Denies pain between shoulder blades, denies headaches O: Temp: [36.6 ??C (97.9 ??F)-37 ??C (98.6 ??F)] Heart Rate: [73-87] Resp: [11-18] BP: (136-191)/(85-108) SpO2: [91 %-99 %] Heart Rate from SPO2: [74 bpm-87 bpm] I/O last 3 completed shifts: In: 1000 [I.V.:1000] Out: 30 [Urine:30] I/O this shift: In: 2365.5 [I.V.:2365.5] Out: 970 [Urine:775; Other:95; Blood:100] Physical Exam General: NAD, laying uncomfortably in bed with eyes squeezed closed HEENT: PERRL, anicteric sclerae Chest: bilateral breast incisions c/d/i with xeroform and gauze. Back incisions covered with gauze and medipore tape, c/d/i. 4 drains with sanguinous output CVS: Regular rate and rhythm Pulm: Clear bilaterally Abd: soft, non tender, non distended Neuro: grossly nonfocal, moving all extremities AP Wendy Sandoval is a 52 y.o. female status post bilateral breast reconstruction with bilaterallatissimus dorsi flaps, currently in stable condition and in need of pain control (and by extension, blood pressure control). - increased pain meds to oxycodone 5-15mg q3h prn - labetalol 10 mg IV x1 for SBP 180 - UOP adequate -continue to monitor -home CPAP Andreea Garcia Pager: [phone] 12/13/17 12:39 AM * Valerie Stratton RN - 12/12/2017 8:40 PM EDT Arrived from OR in bed with oral airway in place. Attached to monitors and alarms set appropriatelyfor patient. YG drains draining serosang fluid. Treviño draining clear, yellow urine. Dressings CDI. Report called to JENNYFER Moore documented in this encounter H&P Notes * Pallavi Green MD - 12/12/2017 3:03 PM EDT Plastic Surgery Preoperative H&P: Patient Name: Wendy Sandoval Patient : 1965 Today's Date: 12/12/2017 Wendy Sandoval is a 52 y.o. female who presents for b/l implant exchange with capsulotomies and latissimus flaps. No changes since last seen. Past Medical History: Diagnosis Date ??? Fibrocystic breast determined by biopsy ??? Hyperlipidemia ??? Hypertension ??? Impaired fasting glucose ??? Malignant neoplasm of upper-outer quadrant of left breast in female, estrogen receptor positive03/31/2017 ??? Obstructive sleep apnea on CPAP ??? Proteinuria Past Surgical History: Procedure Laterality Date ??? @BREAST RECONSTRUCTION W/ FREE FLAP, SUSAN (WRVU 42.58) Bilateral 04/26/2017 Performed by Mali Lakhani MD at [facility] OR ??? BREAST BIOPSY Right 11/01 ??? BREAST RECONSTRUCTION, IMMEDIATE OR DELAYED, W/ TISSUE LINTING MACHINE OPERATOR, INCLUDING SUBSEQUENT EXPANSION(WRVU 18.5) Bilateral 04/26/2017 Performed by Mali Lakhani MD at [facility] OR ??? SECTION x 2 ??? DEBRIDEMENT SKIN AND SUBCU, BREAST (WRVU 1.01) 06/22/2017 Performed by Mali Lakhani MD at [facility] OR ??? EXCISION OF RIB, PARTIAL (WRVU 7.26) Bilateral 04/26/2017 Performed by Mali Lakhani MD at [facility] OR ??? FACIAL NERVE MONITORING, SETUP LARYNGEAL (WRVU 1.57) N/A 11/02/2015 Performed by Valentina Lucas MD at [facility] OR ??? FTSG, FREE, DIR CLOSE DONOR SITE, TRUNK, 20 SQ CM OR LESS (WRVU 9.15) Bilateral 04/26/2017 Performed by Mali Lakhani MD at [facility] OR ??? HAND SURGERY Right ??? LYMPHADENECTOMY, AXILLARY, COMPLETE (WRVU 13.87) Left 04/26/2017 Performed by Jolie Menendez MD at [facility] OR ??? MASTECTOMY, SIMPLE, COMPLETE-SUSAN (WRVU 15.85) Bilateral 04/26/2017 Performed by Jolie Menendez MD at [facility] OR ??? MODIFIER , NIPPLE SPARING Bilateral 04/26/2017 Performed by Jolie Menendez MD at [facility] OR ??? PARATHYROIDECTOMY OR EXPLORATION OF PARATHYROID(S) (WRVU 15.6) N/A 11/02/2015 Performed by Valentina Lucas MD at [facility] OR ??? PRG EMG, LARYNX N/A 11/02/2015 FACIAL NERVE MONITORING, SETUP LARYNGEAL performed by Valentina uLcas MD at [facility] OR ??? PRO BREAST RECONSTRUC W FREE FLAP Bilateral 04/26/2017 @BREAST RECONSTRUCTION W/ FREE FLAP, SUSAN (WRVU 42.58) performed by Mali Lakhani MD at [facility] ??? PRO BREAST RECONSTRUC W TISS EXPANDR Bilateral 04/26/2017 BREAST RECONSTRUCTION, IMMEDIATE OR DELAYED, W/ TISSUE LINTING MACHINE OPERATOR, INCLUDING SUBSEQUENT EXPANSION (WRVU 18.5) performed by Mali Lakhani MD at [facility] OR ? ? PRO DEBRIDEMENT SUBCUTANEOUS TISSUE 20 SQCM/< 06/22/2017 DEBRIDEMENT SKIN AND SUBCU, BREAST (WRVU 1.01) performed by Mali Lakhani MD at [facility] OR ??? PRO EXPLORE PARATHYROID GLANDS N/A 11/02/2015 PARATHYROIDECTOMY OR EXPLORATION OF PARATHYROID(S) performed by Valentina Lucas MD at [facility] OR ? ? PRO FULL THICK GRFT TRUNK <20 SQCM Bilateral 04/26/2017 FTSG, FREE, DIR CLOSE DONOR SITE, TRUNK, 20 SQ CM OR LESS (WRVU 9.15) performed by Mali Lakhani MD at [facility] OR ??? PRO MASTECTOMY, SIMPLE, COMPLETE Bilateral 04/26/2017 MASTECTOMY, SIMPLE, COMPLETE-SUSAN (WRVU 15.85) performed by Jolie Menendez MD at [facility] OR ??? PRO PARTIAL REMOVAL OF RIB Bilateral 04/26/2017 EXCISION OF RIB, PARTIAL (WRVU 7.26) performed by Mali Lakhani MD at [facility] OR ??? PRO REMOVE ARMPITS LYMPH NODES COMPLT Left 04/26/2017 LYMPHADENECTOMY, AXILLARY, COMPLETE (WRVU 13.87) performed by Jolie Menendez MD at [facility] OR ??? PRO REVISE BREAST RECONSTRUCTION Left 06/22/2017 REVISION OF RECONSTRUCTED BREAST (WRVU 10.41) performed by Mali Lakhani MD at [facility] OR ??? PRO THYMECTOMY, TRANSCERVICAL N/A 11/02/2015 THYMECTOMY, TRANSCERVICAL APPROACH performed by Valentina Lucas MD at [facility] OR ??? REVISION OF RECONSTRUCTED BREAST (WRVU 10.41) Left 06/22/2017 Performed by Mali Lakhani MD at [facility] OR ??? SHOULDER SURGERY Left ??? THYMECTOMY, TRANSCERVICAL APPROACH (WRVU 17.16) N/A 11/02/2015 Performed by Valentina Lucas MD at [facility] OR ??? UMBILICAL HERNIA REPAIR Family History Problem [...] Other 62 ??? Ovarian Cancer Other 55 Social History Socioeconomic History ??? Marital status: Spouse name: Not on file ??? Number of children: Not on file ??? Years of education: Not on file ??? Highest education level: Not on file Social Needs ??? Financial resource strain: Not on file ??? Food insecurity - worry: Not on file ??? Food insecurity - inability: Not on file ??? Transportation needs - medical: Not on file ??? Transportation needs - non-medical: Not on file Occupational History ??? Not on file Tobacco Use ??? Smoking status: Former Smoker ??? Smokeless tobacco: Never Used Substance and Sexual Activity ??? Alcohol use: Yes Comment: socially once a month ??? Drug use: No ??? Sexual activity: Not on file Other Topics Concern ??? Not on file Social History Narrative ??? Not on file Allergies Allergen Reactions ??? Zoloft [Sertraline] PSORIASIS FLARE Review of systems: As per HPI, otherwise non-contributory. Exam: General: NAD Resp: CTAB CV: normal rate, regular rhythm A/P: Wendy Sandoval is a 52 y.o. female who presents for b/l implant exchange with capsulotomiesand latissimus flaps. - Proceed to OR. The risks, benefits and indications were reviewed with the patient and there remains an indication for surgery. Consent signed. - Preoperative abx ordered Pallavi Green MD Plastic Surgery Resident P# [phone] documented in this encounter Miscellaneous Notes * Op Note - Mali Lakhani MD - 12/16/2017 4:31 PM EDT [facility] [place] Operative Note Patient Name: Wendy Sandoval : [id number] MR#: [id number] Case Date: 12/12/2017 Surgeon: Surgeon(s) and Role: * Mali Lakhani MD - Primary * Pallavi Green MD - Resident-Surgeon Hubert Preoperative diagnosis: hx of breast cancer Postoperative diagnosis: hx of breast cancer Procedure(s) (LRB): REVISION OFRECONSTRUCTED BREAST, SUSAN (WRVU 10.41) (Bilateral) @BREAST RECONSTRUCTION W/ LAT DORSI FLAP,W/O IMPLANT, SUSAN (WRVU 23.36) (Bilateral) TISSUE LINTING MACHINE OPERATOR REPLACEMENT, WITH PERMANENT PROSTHESIS, SUSAN (WRVU 8.01) (Bilateral) Anesthesia: General Estimated Blood Loss: 100 mL Implant Name Type Inv. Item Serial No. Large Engine Assembler Lot No. LRB No. Used Action MAMMA,GEL,XTRA,MOD+,RND,405CC ([id number]) (AUTOREQ) - [id number] IMPLANTS MAMMA,GEL,XTRA,MOD+,RND,405CC ([id number]) (AUTOREQ) [id number] [employer] [id number] Right 1 Implanted MAMMA,GEL,XTRA,MOD+,RND,405CC ([id number]) (AUTOREQ) - [id number] IMPLANTS MAMMA,GEL,XTRA,MOD+,RND,405CC ([id number]) (AUTOREQ) [id number] [employer] [id number] Left 1 Implanted Specimens removed during surgery: None Drains: # 15 juliano x 4 Drain/Device Site 12/12/17 1805 Left upper mid axillary collapsible closed device (Active) Insertion Site clean and dry;dressing intact 12/16/2017 8:45 AM Drain Device Number 1 12/16/2017 8:45 AM Drainage Characteristics/Odor serosanguineous 12/16/2017 8:45 AM Drainage Amount scant 12/16/2017 8:45 AM General Output (mL) 10 12/16/2017 12:00 PM Drain/Device Site 12/12/17 1807 Left lower mid axillary collapsible closed device (Active) Insertion Site clean and dry;dressing intact 12/16/2017 8:45 AM Drain Device Number 2 12/16/2017 8:45 AM Drainage Characteristics/Odor serosanguineous 12/16/2017 8:45 AM Drainage Amount small 12/16/2017 8:45 AM General Output (mL) 40 12/16/2017 12:00 PM Drain/Device Site 12/12/17 1807 Right upper mid axillary collapsible closed device (Active) Insertion Site clean and dry;dressing intact 12/16/2017 8:45 AM Drain Device Number 3 12/16/2017 8:45 AM Drainage Characteristics/Odor serosanguineous 12/16/2017 8:45 AM Drainage Amount scant 12/16/2017 8:45 AM General Output (mL) 15 12/16/2017 12:00 PM Drain/Device Site 12/12/17 1808 Right lower mid axillary collapsible closed device (Active) Insertion Site clean and dry 12/16/2017 8:45 AM Drain Device Number 4 12/16/2017 8:45 AM Drainage Characteristics/Odor serosanguineous 12/16/2017 8:45 AM Drainage Amount scant 12/16/2017 8:45 AM General Output (mL) 20 12/16/2017 12:00 PM Surgical Closure: Primary Closure - skin incision is completely closed without any wires, destiney, drains or other devices Disposition: awakened from anesthesia, extubated and taken to the recovery room in a stable condition, having suffered no apparent untoward event. Condition: doing well without problems (Please see the Surgical Encounter Summary for any Implant and Specimen details pertinent to this patient.) HPI/Surgical Indications: 52 year old female with a history of breast cancer and recent completion of chemotherapy Procedure Description: The patient was identified and marked in the upright position in the preoperative holding area. Surgical plan was reviewed, she understood the potential risks and complications, and elected to proceed. The patient was brought to the operating room and underwent placement of anesthetic monitors and SCDs in her or stretcher. After induction of general anesthesia the patient was intubated orally and maintained on general anesthesia throughout the remainder of the case. She was then transitioned to the prone position on the OR table and fully padded. The back and arms were prepped and draped in a standard sterile fashion. Preoperative markings were refreshed in anticipation of bilateral latissimus myocutaneous flaps. We began by making incisions along her premarked lines through skin and subcuticular tissue and fat. Dissection ensued from superficial to deep with electrocautery. The superficial surface of the latissimus muscle was exposed bilaterally. Insertions along the posterior iliac crest and paraspinous fascia were released the flaps were divided at this these distal extensions and traced proximally toward the pedicle. The thoracodorsal pedicle was identified on both sides we thendissected into the tissue loin puller pocket on both sides and removed intact tissue expanders. There is a moderate amount of serous fluid from the left side and a small amount from the right side. The humeral insertion was divided on each side and the flap was transposed into the implant pockets. Theproximal end of the muscle was then tacked to remaining thoracodorsal fascia for stability using 2-0 vicryl. Flaps remained warm pink and well perfused throughout the procedure. #15 Juliano drain was inserted in each implant capsule and in each back donor site. Closure of the back donor sites was performed in a multilayered fashion with 0 Vicryl for fascial level repair, 2-0 Vicryl for deep dermis,and 3-0 Monocryl as a running subcuticular closure of the skin. Dermabond was applied as a dressing. Drains were activated with grenade suction. The drapes were taken down and the patient was transitioned to a second OR table in the supine position and fully padded. The chest was prepped and drapedin a standard sterile fashion. The operation began by making incisions through pre-existing mastecto my scars through skin and subcuticular tissue and fat. The implant pockets were opened and the flaps were retrieved. Bilateral capsulotomies were performed with radial scoring to maximize the pocket space. Implant silicone sizers were inserted to size final implants. Once this was decided on the skin flaps were de-epithelialized but maintained to add bulk to the reconstruction. Latissimus was tacked down along the inframammary fold and medial insertions bilaterally. The implants used were 405 cc mentor silicone and were placed in a retro- muscular plane. It should be noted that tacking sutureswere placed along the axillary aspect of the latissimus muscle to prevent migration laterally. We ch anged our gloves and reprepped the sites prior to inserting the implants. Closure of the incisions was then performed in a multilayered fashion utilizing 2-0 Vicryl for deep and deep dermal sutures and 4-0 Monocryl as a running subcuticular closure of the skin. Operative sites were cleansed and dried Xeroform and bacitracin was applied across the wound margins. The drapes were taken down and the patient was weaned from anesthesia and extubated in the operating room. She was transitioned to her OR stretcher and transported to the postanesthesia care unit where she was reported to be stable andbreathing spontaneously. There were no apparent complications to the procedure the patient tolerated the procedure well. All sponge and needle counts were reported as correct by nursing staff at the end of the case. Infection Bundle used? No Attestation: Case Date: 12/12/2017 I was present and I participated during the entire procedure (does not need to include opening and closing). MALI LAKHANI MD 12/18/2017 * Plan of Care - Gerald Vanessa RN - 12/16/2017 5:29 AM EDT Problem: Patient Care Overview Goal: Plan of Care Review Outcome: Ongoing (Interventions Implemented as Appropriate) 12/16/17 0528 Plan of Care Review Progress improving Coping/Psychosocial Plan Of Care Reviewed With patient OUTCOME EVALUATION NOTE: OUTCOME SUMMARY: Pt resting between care throughout shift. Pain adequately controlled w/ PRN and scheduled medications, see MAR. JPx4 in place, see doc flowsheets for output. Frequent repositioning encouraged. VSS. Will continue to monitor. PLAN MOVING FORWARD: Pain control, mobilize, d/c planning INDIVIDUALIZED FALL PREVENTION INTERVENTIONS: Patient-specific fall risk factors per assessment: [current deficits]: Hospital environment, pain medications, impaired mobility Assistance [level of assistance required for transfers and ambulation]: SBA assist Supervision [direct monitoring required during toileting and ADLs]: Hands on Surveillance [continuous indirect monitoring]: Hourly rounding, Adeline NKE at bedside, call [place] within reach Patient-specific fall prevention interventions for sensory deficits provided, if applicable: CPG GOAL OUTCOME EVALUATION: * Plan of Care - Karley Easton RN - 12/15/2017 3:15 PM EDT Problem: Patient Care Overview Goal: Plan of Care Review Outcome: Ongoing (Interventions Implemented as Appropriate) 12/13/17 0541 12/15/17 1000 Plan of Care Review Progress improving -- Coping/Psychosocial Plan Of Care Reviewed With -- patient OUTCOME EVALUATION NOTE: ?? OUTCOME SUMMARY: ?? Pt A+O, VSS. Pain controlled with scheduled meds, see APR. Pt has 4 YG drains that are intact and draining sanguineous output. Compression bra on. Voiding without difficulty. Son at bedside and attentive to pts needs. No other acute events, will continue to monitor. ?? PLAN MOVING FORWARD: ?? Pain control, mobility, d/c planning ?? INDIVIDUALIZED FALL PREVENTION INTERVENTIONS: ?? Patient-specific fall risk factors per assessment: [current deficits]: Pain, hospital environment, generalized weakness ?? Assistance [level of assistance required for transfers and ambulation]: SBA ?? Supervision [direct monitoring required during toileting and ADLs]: Eyes on ?? Surveillance [continuous indirect monitoring]: Masimo, purposeful rounding ?? Patient-specific fall prevention interventions for sensory deficits provided, if applicable: [X] N/A ? CPG GOAL OUTCOME EVALUATION: * Consult Note - Lanre Odonnell [facility] - 12/15/2017 10:12 AM EDT Clinical Pharmacist Note - Renal Dose Adjustment for Antimicrobials Wendy Sandoval (A# [id number]) is being treated with the following antimicrobial agent(s) which require dose adjustment based on current renal function: 1. Cefazolin 1000 mg IV every 8 hours The indication for antimicrobial treatment is: post op prophylaxis Pharmacokinetic information: Height: Ht Readings from Last 1 Encounters: 12/12/17 152.4 cm (5') Weight: Wt Readings from Last 1 Encounters: 12/12/17 86.8 kg (191 lb 4.8 oz) Body mass index is 37.36 kg/m??. Estimated Creatinine Clearance: 28.6 mL/min (A) (based on SCr of 2.2 mg/dL (H)). Recent Labs 12/14/17 0440 12/13/17 0516 CREATININE 2.20* 1.19 BUN 34* 14 I/O Yesterday: 12/14 0701 - 12/15 0700 In: 360 [P.O.:360] Out: 1665 [Urine:1400] Recommendations: Based on current renal function assessment, the following change(s) have been made to the patient'santimicrobial regimen: 1. For CrCl 10 to 34 mL/min, dose cefazolin at 1000 mg IV every 12 hours We will continue to monitor the patient???s renal function and adjust antimicrobial dosing as needed. Please page the care area pharmacist with any questions you may have. Per P&T approved Renal Dose Adjustment Policy LANRE ODONNELL RPH * Plan of Care - Celine German RN - 12/15/2017 6:34 AM EDT Problem: Skin Integrity Impairment, Risk/Actual (Adult) Goal: Identify Related Risk Factors and Signs and Symptoms Related risk factors and signs and symptoms are identified upon initiation of Human Response Clinical Practice Guideline (CPG) Outcome: Ongoing (Interventions Implemented as Appropriate) 12/13/17 1651 Skin Integrity Impairment, Risk/Actual Skin Integrity Impairment, Risk/Actual: Related Risk Factors edema;immobility;moisture;surgery/procedure Signs and Symptoms (Skin Integrity Impairment) edema Goal: Skin Integrity/Wound Healing Patient will demonstrate the desired outcomes by discharge/transition of care. Outcome: Ongoing (Interventions Implemented as Appropriate) 12/13/17 1651 Skin Integrity Impairment, Risk/Actual (Adult) Skin Integrity/Wound Healing making progress toward outcome Problem: Patient Care Overview Goal: Plan of Care Review Outcome: Ongoing (Interventions Implemented as Appropriate) 12/13/17 0541 12/14/172023 Plan of Care Review Progress improving -- Coping/Psychosocial Plan Of Care Reviewed With -- patient OUTCOME EVALUATION NOTE: OUTCOME SUMMARY: Pt resting between care throughout shift. Pain adequately controlled w/ PRN and scheduled medications, see MAR. Frequent repositioning encouraged. VSS. Will continue to monitor. Pt still putting out from 4 YG drains. Back incisions open to air. Pt wearing surgical bra. Family in for beginning of shift, very supportive. PLAN MOVING FORWARD: Pain control, mobilize, d/c planning, INDIVIDUALIZED FALL PREVENTION INTERVENTIONS: Patient-specific fall risk factors per assessment: [current deficits]: Hospital environment, pain medications, impaired mobility, Assistance [level of assistance required for transfers and ambulation]: Standby assist Supervision [direct monitoring required during toileting and ADLs]: standby Surveillance [continuous indirect monitoring]: Hourly rounding, KAROL Lr at bedside, call [place] within reach. Patient-specific fall prevention interventions for sensory deficits provided, if applicable: CPG GOAL OUTCOME EVALUATION: Goal: Individualization & Mutuality Outcome: Ongoing (Interventions Implemented as Appropriate) 12/13/17539 Individualization Patient Specific Preferences That my pain will be controlled Patient Specific Goals none currently Patient Specific Interventions B/P control, Pain control, Incision checks Mutuality/Individual Preferences What Anxieties, Fears or Concerns Do You Have About Your Health or Care? none currently What Questions Do You Have About Your Health or Care? none What Information Would Help Us Give You More Personalized Care? none Goal: Fall Prevention-Safe Patient Handling Outcome: Ongoing (Interventions Implemented as Appropriate) 12/14/17 1000 12/14/172023 [place] Fall Risk History of Falling -- 0 Secondary Diagnosis -- 15 Ambulatory Aids -- 0 Intravenous Therapy/Heparin/Saline Lock -- 20 Gait/Transferring -- 10 Mental Status -- 0 Score -- 45 OTHER [place] Fall Risk -- High Restraint Interventions Safety Promotion/Fall Prevention -- activity supervised Positioning Body Position -- supine, head elevated Activity Activity Type ambulated to bathroom -- Activity Assistance Provided assistance, stand-by -- Assistive Device Utilized none -- Goal: Infection Control Outcome: Ongoing (Interventions Implemented as Appropriate) 12/14/17 1000 12/14/172023 Safety Interventions Isolation Precautions -- standard precautions maintained Infection Prevention single patient room provided -- Coping Strategies Supportive Measures -- active listening utilized Goal: Discharge Needs Assessment Outcome: Ongoing (Interventions Implemented as Appropriate) 12/13/17 0540 12/13/17 1651 Discharge Needs Assessment Concerns To Be Addressed -- no discharge needs identified Readmission Within The Last 30 Days -- no previous admission in last 30 days Discharge Disposition still a patient -- Living Environment Transportation Available family or friend will provide -- Goal: Interdisciplinary Rounds/Family Conf Outcome: Ongoing (Interventions Implemented as Appropriate) 12/13/17 1651 Interdisciplinary Rounds/Family Conf Participants patient;family;nursing * Plan of Care - Karley Easton RN - 12/14/2017 3:11 PM EDT Problem: Patient Care Overview Goal: Plan of Care Review Outcome: Ongoing (Interventions Implemented as Appropriate) 12/13/17 0541 12/14/17 0900 Plan of Care Review Progress improving -- Coping/Psychosocial Plan Of Care Reviewed With -- patient OUTCOME EVALUATION NOTE: OUTCOME SUMMARY: Pt A+O, VSS. Pain controlled with PRN and scheduled meds, see MAR. Pt has 4 YG drains that are intact and draining sanguineous output. Compression bra on. Pt voiding without difficulty. Was up to chair for a few hours today and tolerated well. Pt dose endorse baseline neuropathy to hands and feet. R arm kept elevated from old infiltrate. Daughter at bedside and attentive to pts needs. No other acute events, will continue to monitor. PLAN MOVING FORWARD: Pain control, mobility, d/c planning INDIVIDUALIZED FALL PREVENTION INTERVENTIONS: Patient-specific fall risk factors per assessment: [current deficits]: Pain, hospital environment, generalized weakness Assistance [level of assistance required for transfers and ambulation]: SBA Supervision [direct monitoring required during toileting and ADLs]: Eyes on Surveillance [continuous indirect monitoring]: Masimo, purposeful rounding Patient-specific fall prevention interventions for sensory deficits provided, if applicable: [X] N/A CPG GOAL OUTCOME EVALUATION: * Plan of Care - Jamil Wallace RN - 12/14/2017 5:11 AM EDT Problem: Patient Care Overview Goal: Plan of Care Review Outcome: Ongoing (Interventions Implemented as Appropriate) 12/13/17 0541 12/13/17 2100 Plan of Care Review Progress improving -- Coping/Psychosocial Plan Of Care Reviewed With -- patient OUTCOME EVALUATION NOTE: ?? OUTCOME SUMMARY: ?? Patient alert and oriented X 4 with pain located to bilateral upper back and chest region. Patient shows to have peripheral pulses present with swelling located to left arm. Patient has not reported any chest pain or shortness of breath. Lung garcia appear to be clear with no labored breathing. Patient has baseline peripheral lower extremity numbness and tingling from baseline neuropathy. Patienthas been able to void with low PVR's, but has only had 300 output during evening. Patient has been able to ambulate with stand by assist. YG drains have shown less than 100 output during topographical surveyor.Patient's pain has been well controlled. Will continue to monitor. ?? PLAN MOVING FORWARD: ?? Pain control Mobilize Neurovascular checks ?? INDIVIDUALIZED FALL PREVENTION INTERVENTIONS: ?? Patient-specific fall risk factors per assessment: [current deficits]: Generalized weakness, Decreased mobility, Pain ?? Assistance [level of assistance required for transfers and ambulation]: Unknown assistance level atthis point ?? Supervision [direct monitoring required during toileting and ADLs]: No direct supervision required ?? Surveillance [continuous indirect monitoring]: Masimo, Hourly rounds, Nursing communication ?? Patient-specific fall prevention interventions for sensory deficits provided, if applicable: [X] No ? CPG GOAL OUTCOME EVALUATION: * Plan of Care - Celine German RN - 12/13/2017 5:05 PM EDT Problem: Skin Integrity Impairment, Risk/Actual (Adult) Goal: Identify Related Risk Factors and Signs and Symptoms Related risk factors and signs and symptoms are identified upon initiation of Human Response Clinical Practice Guideline (CPG) Outcome: Ongoing (Interventions Implemented as Appropriate) 12/13/17 1651 Skin Integrity Impairment, Risk/Actual Skin Integrity Impairment, Risk/Actual: Related Risk Factors edema;immobility;moisture;surgery/procedure Signs and Symptoms (Skin Integrity Impairment) edema Goal: Skin Integrity/Wound Healing Patient will demonstrate the desired outcomes by discharge/transition of care. Outcome: Ongoing (Interventions Implemented as Appropriate) 12/13/17 1651 Skin Integrity Impairment, Risk/Actual (Adult) Skin Integrity/Wound Healing making progress toward outcome Problem: Patient Care Overview Goal: Plan of Care Review Outcome: Ongoing (Interventions Implemented as Appropriate) 12/13/17 0541 12/13/17911 Plan of Care Review Progress improving -- Coping/Psychosocial Plan Of Care Reviewed With -- patient OUTCOME EVALUATION NOTE: OUTCOME SUMMARY: Pt resting between care throughout shift. Pain adequately controlled w/ PRN and scheduled medications, see MAR. Frequent repositioning encouraged. VSS. Will continue to monitor. Pt got out of bed this afternoon and ambulated 50 feet. Treviño was pulled today. Due to void [id number]. Daughter at bedside. PLAN MOVING FORWARD: Pain control, mobilize, d/c planning, INDIVIDUALIZED FALL PREVENTION INTERVENTIONS: Patient-specific fall risk factors per assessment: [current deficits]: Hospital environment, pain medications, impaired mobility, preexisting numbness in bilateral arms and feet from chemotherapy. Assistance [level of assistance required for transfers and ambulation]: 2 assist w/ handhold Supervision [direct monitoring required during toileting and ADLs]: 1 assist Surveillance [continuous indirect monitoring]: Hourly rounding, Masimo, NKE at bedside, call [place] within reach, Patient-specific fall prevention interventions for sensory deficits provided, if applicable: CPG GOAL OUTCOME EVALUATION: Pt making progress towards goal. Goal: Individualization & Mutuality Outcome: Ongoing (Interventions Implemented as Appropriate) 12/13/17 05 Individualization Patient Specific Preferences That my pain will be controlled Patient Specific Goals none currently Patient Specific Interventions B/P control, Pain control, Incision checks Mutuality/Individual Preferences What Anxieties, Fears or Concerns Do You Have About Your Health or Care? none currently What Questions Do You Have About Your Health or Care? none What Information Would Help Us Give You More Personalized Care? none Goal: Fall Prevention-Safe Patient Handling Outcome: Ongoing (Interventions Implemented as Appropriate) 12/13/17911 [place] Fall Risk History of Falling 0 Secondary Diagnosis 15 Ambulatory Aids 0 Intravenous Therapy/Heparin/Saline Lock 20 Gait/Transferring 0 Mental Status 0 Score 35 OTHER [place] Fall Risk Med Restraint Interventions Safety Promotion/Fall Prevention activity supervised Positioning Body Position foot of bed elevated;supine, head elevated Activity Activity Type activity adjusted per tolerance Activity Assistance Provided assistance, 2 people Assistive Device Utilized none Goal: Infection Control Outcome: Ongoing (Interventions Implemented as Appropriate) 12/13/1791112/13/171650 Safety Interventions Isolation Precautions -- standard precautions maintained Infection Prevention barrier precautions utilized -- Coping Strategies Supportive Measures active listening utilized;goal setting facilitated;positive reinforcement provided;verbalization of feelings encouraged -- Goal: Discharge Needs Assessment 12/13/171650 Discharge Needs Assessment Concerns To Be Addressed no discharge needs identified Readmission Within The Last 30 Days no previous admission in last 30 days Goal: Interdisciplinary Rounds/Family Conf Outcome: Ongoing (Interventions Implemented as Appropriate) 12/13/171650 Interdisciplinary Rounds/Family Conf Participants patient;family;nursing * Care Management - Cosme Gomez, RN - 12/13/2017 4:48 PM EDT Chart reviewed and met with pt while she was ambulating with nursing. Pt had:bilateral breast reconstruction and latissimus dorsi flaps yesterday byt Dr Lakhani. Pt was dx with Breast Ca in Feb and had surgery in 04/26/17: 51 y.o.??female??with breast CA to the left. ?Pt underwent bilateral breast reconstruction after mastectomy with SALVADOR flaps (04/26/17); ??complicated by intraoperative demise followed by Tissue Integrated Logistics Operations Manager placement. Pt had Chemo after surgery and it was completed 11/15. Pt is , works from home, dtr is going to move to [place] and be a speech pathologist, her son is not working presently and is at home. He states he will stay with me until I am feeling good. Pt will have RT and has met with Dr Mendoza. I explained what to expect when she goes M-F. Pt has used [facility] in the past but does not feel the need but if she changes her mind I told her I would put the referral through. Pt states her back feels the worst and I encouraged her to take the pain meds to enable her to move around more easily. Will follow. ?? * Plan of Care - Jamil Wallace RN - 12/13/2017 5:49 AM EDT Problem: Patient Care Overview Goal: Plan of Care Review Outcome: Ongoing (Interventions Implemented as Appropriate) 12/13/17 0010 12/13/17 0541 Plan of Care Review Progress -- improving Coping/Psychosocial Plan Of Care Reviewed With patient -- OUTCOME EVALUATION NOTE: OUTCOME SUMMARY: Patient alert and oriented X 4 with pain located to bilateral upper back and chest region. Patient shows to have peripheral pulses present with swelling located to left arm. Patient has not reported any chest pain or shortness of breath. Lung garcia appear to be clear with no labored breathing. Patient has baseline peripheral lower extremity numbness and tingling from baseline neuropathy. Patienthas been able to keep treviño patent with no distress noted. Pain has been moderately controlled withcurrent regiment. B/P has been elevated during shift with some resolution following PRN medicationsgiven. Patient also reported visual change that has shown resolution following blood pressure resolu tion. Patient was unable to focus on objects and had slight nystagmus to left eye upon tracking downward. Will continue to monitor. PLAN MOVING FORWARD: Pain control Mobilize Neurovascular checks INDIVIDUALIZED FALL PREVENTION INTERVENTIONS: Patient-specific fall risk factors per assessment: [current deficits]: Generalized weakness, Decreased mobility, Pain Assistance [level of assistance required for transfers and ambulation]: Unknown assistance level atthis point Supervision [direct monitoring required during toileting and ADLs]: No direct supervision required Surveillance [continuous indirect monitoring]: Masimo, Hourly rounds, Nursing communication Patient-specific fall prevention interventions for sensory deficits provided, if applicable: [X] No CPG GOAL OUTCOME EVALUATION: * Brief Op Note - Pallavi Green MD - 12/12/2017 8:23 PM EDT Brief Operative Note Patient Name: Wendy Sandoval : [id number] MR#: [id number] Case Date: 12/12/2017 Surgeon: Surgeon(s) and Role: * Mali Lakhani MD - Primary * Pallavi Green MD - Resident-Surgeon Hubert Preoperative diagnosis: hx of breast cancer Postoperative diagnosis: hx of breast cancer Procedure(s) (LRB): REVISION OFRECONSTRUCTED BREAST, SUSAN (WRVU 10.41) (Bilateral) @BREAST RECONSTRUCTION W/ LAT DORSI FLAP,W/O IMPLANT, SUSAN (WRVU 23.36) (Bilateral) TISSUE LINTING MACHINE OPERATOR REPLACEMENT, WITH PERMANENT PROSTHESIS, SUSAN (WRVU 8.01) (Bilateral) Anesthesia: General Findings: Implant Name Type Inv. Item Serial No. Large Engine Assembler Lot No. LRB No. Used Action MAMMA,GEL,XTRA,MOD+,RND,405CC ([id number]) (AUTOREQ) - [id number] IMPLANTS MAMMA,GEL,XTRA,MOD+,RND,405CC ([id number]) (AUTOREQ) [id number] [employer] [id number] Right 1 Implanted MAMMA,GEL,XTRA,MOD+,RND,405CC ([id number]) (AUTOREQ) - [id number] IMPLANTS MAMMA,GEL,XTRA,MOD+,RND,405CC ([id number]) (AUTOREQ) [id number] [employer] [id number] Left 1 Implanted Complications: none Estimated Blood Loss: 100 mL Specimens removed during surgery: * No orders in the log * Fluids: Intraprocedure Crystalloid Total None PRBCs: none (See Anesthesia Record/Report for Other Blood Products) Urine Output: 100 mL Drains: two drains on either side on back Disposition: awakened from anesthesia, extubated and taken to the recovery room in a stable condition, having suffered no apparent untoward event. Condition: doing well without problems (Please see the Surgical Encounter Summary for any Implant and Specimen details pertinent to this patient.) Infection Bundle used? N/A Post Op Plan: Follow up in 2 weeks for wound check and drain removal based on nursing assessment Suture removal in 2 weeks Antibiotics while drains in place documented in this encounter Plan of Treatment Upcoming Encounters Date Type Department Care Team (Late st Contact Info) Description 01/22/2024 10:30 AM EST Appointment Mammography/[place] [address] Ladi eMndosa MD [facility] DR HEMATOLOGY/[place] [address] 01/30/2024 11:30 AM EST Office Visit Dermatology at [facility] [address] [place] [id number] Nilda Luis MD [facility] DR [place] [address] 02/15/2024 9:30 AM EST [place] [address] [place] [address] documented as of this encounter Procedures Procedure Name Priority Date/Time Associated Diagnosis Comments COMPREHENSIVE METABOLIC PANEL (NON-FASTING) Routine 12/15/2017 3:20 PM EDT HEMOGRAM Routine 12/15/2017 10:05 AM EDT DIFFERENTIAL, AUTOMATED Routine 12/16/19 18 10:05 AM EDT CBC (WITH DIFF) Routine 12/15/2017 10:05 AM EDT BASIC METABOLIC PANEL (NON-FASTING) Routine 12/15/2017 10:05 AM EDT BASIC METABOLIC PANEL (NON-FASTING) Routine 12/14/2017 4:40 AM EDT SCAN, PERIPHERAL BLOOD Routine 8 5:16 AM EDT HEMOGRAM Routine 12/13/2017 5:16 AM EDT DIFFERENTIAL, AUTOMATED Routine 12/14/19 18 5:16 AM EDT CBC (WITH DIFF) Routine 12/13/2017 5:16 AM EDT MAGNESIUM Routine 12/13/2017 5:16 AM EDT BASIC METABOLIC PANEL (NON-FASTING) Routine 12/13/2017 5:16 AM EDT TISSUE LINTING MACHINE OPERATOR REPLACEMENT, WITH PERMANENT PROSTHESIS, SUSAN (WRVU 7.49) Yes 12/12/2017 3:52 PM EDT hx of breast cancer @BREAST RECONSTRUCTION W/ LAT DORSI FLAP,W/O IMPLANT, SUSAN (WRVU 23.36) Yes 12/12/2017 3:52 PM EDT hx of breast cancer REVISION OFRECONSTRUCTED BREAST, SUSAN (WRVU 11.17) Yes 12/12/2017 3:52 PM EDT hx of breast cancer TISSUE LINTING MACHINE OPERATOR REPLACE, W/PERMANENT PROSTHESIS, SUSAN Routine 12/12/2017 1:13 PM EDT BREAST RECONSTRUCTION W/ LAT DORSI FLAP,W OR W/O IMPLANT, SUSAN Routine 12/12/2017 1:13 PM EDT SWIM INSTRUCTOR SCAN 12/12/2017 12:00 AM EDT documented in this encounter Results * (ABNORMAL) Comprehensive metabolic panel (non-fasting) (12/15/2017 3:20 PM EDT) Glucose Lvl 182 65 - 199 mg/dL [facility] Comment:Diabetes: >=200 mg/d L plus symptoms BUN 24(H) 8 - 18 mg/dL [facility] Creatinine 1.35(H) 0.70 - 1.20 mg/dL [facility] Sodium 144 135 - 145 mmol/L [facility] Potassium 3.8 3.5 - 5.0 mmol/L [facility] Comment: Please note: ??Patients with WBC >100,000 may have falsely elevated Potassium levels. ??For accurate Potassium quantification in these patients send serum separator tube (gold top) for subsequent determinations. ??Contact the Clinical Chemistry Laboratory if there are any questions. Chloride 109(H) 98 - 107 mmol/L [facility] CO2 22 22 - 31 mmol/L [facility] Anion Gap 13 5 - 15 mmol/L [facility] Calcium 8.2(L) 8.5 - 10.5 mg/dL [facility] Total Protein 5.5(L) 6.1 - 8.0 gm/dL [facility] Albumin 2.6(L) 3.2 - 5.2 gm/dL [facility] AST 15 0 - 30 unit/L [facility] ALT <5 0 - 30 unit/L [facility] Alk Phos 77 40 - 104 unit/L [facility] Total Bilirubin <0.2(L) 0.2 - 1.3 mg/dL [facility] Estimated GFR 44(L) >=60 mL/min/1. 73 m?? [facility] Comment: The eGFR was calculated using the CKD-EPI equation. As with all creatinine based estimates of kidney function, eGFR values calculated with the CKD-EPI equation are not accurate in patients with acute kidney failure, extremes of body mass or the acutely ill. [email or web address] eGFR 51(L) >=60 mL/min/1. 73 m?? [facility] Comment: The eGFR was calculated using the CKD-EPI equation. As with all creatinine based estimates of kidney function, eGFR values calculated with the CKD-EPI equation are not accurate in patients with acute kidney failure, extremes of body mass or the acutely ill. [email or web address] Blood specimen (specimen) 12/15/2017 3:20 PM EDT 12/15/2017 3:29 PM EDT Narrative Resulting Agency Comment Spec In Lab Mali Lakhani MD CHEMISTRY ORDERABLES [facility] [place] [address] * (ABNORMAL) Differential, Automated (12/15/2017 10:05 AM EDT) Neutrophils % 76.4 % [facility] Neutr Abs (ANC) 9.98(H) 1.70 - 6.10 x10(3)/mc L [facility] Lymphocytes % 8.9 % [facility] Lymphocytes Abs 1.2 0.9 - 3.2 x10(3)/[facility] Monocytes % 7.8 % [facility] Monocyte Abs 1.0(H) 0.3 - 0.9 x10(3)/[facility] Eosinophils % 5.2 % [facility] Eosinophils Abs 0.7(H) 0.0 - 0.4 x10(3)/[facility] Basophils % 0.7 % [facility] Basophils Abs 0.1 0.0 - 0.1 x10(3)/[facility] Immature Gran % 1.00 % [facility] Comment: Immature granulocytes(IG's)percentage and absolute count will include metamyelocytes, myelocytes, and promyelocytes. Blood smears from CBCs yielding IG's will be scanned manually for concordance. If this scan disagrees with the automated IG or if promyelocytes are noted, a manual differential will be performed. Nova Gran Abs 0.13(H) 0.00 - 0.04 x10(3)/[facility] Blood specimen (specimen) 12/15/2017 10:05 AM EDT 12/15/2017 10:23 AM EDT Narrative Resulting Agency Comment Spec In Lab Aly Jaimes MD HEMATOLOGY ORDERABLE S [facility] [place] [address] * (ABNORMAL) Hemogram (12/15/2017 10:05 AM EDT) WBC 13.1(H) 4.0 - 9.5 x10(3)/[facility] RBC 2.50(L) 4.00 - 5.21 x10(6)/[facility] Hemoglobin 7.7(L) 11.7 - 15.5 gm/dL [facility] Hematocrit 24.6(L) 35.7 - 45.8 % [facility] MCV 98.4(H) 82.6 - 94.4 fL [facility] MCH 30.8 27.1 - 32.0 pg [facility] MCHC 31.3(L) 31.7 - 35.0 gm/dL [facility] Platelets 339 145 - 357 x10(3)/[facility] RDWSD 55.8(H) 37.0 - 46.0 fL [facility] RDWCV 15.6(H) 11.5 - 14.1 % [facility] MPV 9.2 7.6 - 12.9 fL [facility] nRBC % Auto 0.0 % [facility] nRBC Abs Auto 0.000 0.000 - 0.000 x10(3)/[facility] Blood specimen (specimen) 12/15/2017 10:05 AM EDT 12/15/2017 10:23 AM EDT Narrative Resulting Agency Comment Spec In Lab Aly Jaimes MD HEMATOLOGY ORDERABLE S [facility] [place] [address] * (ABNORMAL) Basic Metabolic Panel (non-fasting) (12/15/2017 10:05 AM EDT) Glucose Lvl 199 65 - 199 mg/dL [facility] Comment:Diabetes: >=200 mg/d L plus symptoms BUN 28(H) 8 - 18 mg/dL [facility] Creatinine 1.40(H) 0.70 - 1.20 mg/dL [facility] Sodium 143 135 - 145 mmol/L [facility] Potassium 3.6 3.5 - 5.0 mmol/L [facility] Comment: Please note: ??Patients with WBC >100,000 may have falsely elevated Potassium levels. ??For accurate Potassium quantification in these patients send serum separator tube (gold top) for subsequent determinations. ??Contact the Clinical Chemistry Laboratory if there are any questions. Chloride 110(H) 98 - 107 mmol/L [facility] CO2 22 22 - 31 mmol/L [facility] Anion Gap 11 5 - 15 mmol/L [facility] Calcium 8.2(L) 8.5 - 10.5 mg/dL [facility] Estimated GFR 42(L) >=60 mL/min/1. 73 m?? [facility] Comment: The eGFR was calculated using the CKD-EPI equation. As with all creatinine based estimates of kidney function, eGFR values calculated with the CKD-EPI equation are not accurate in patients with acute kidney failure, extremes of body mass or the acutely ill. [email or web address] eGFR 49(L) >=60 mL/min/1. 73 m?? [facility] Comment: The eGFR was calculated using the CKD-EPI equation. As with all creatinine based estimates of kidney function, eGFR values calculated with the CKD-EPI equation are not accurate in patients with acute kidney failure, extremes of body mass or the acutely ill. [email or web address] Blood specimen (specimen) 12/15/2017 10:05 AM EDT 12/15/2017 10:23 AM EDT Narrative Resulting Agency Comment Spec In Lab Mali Lakhani MD CHEMISTRY ORDERABLES [facility] [place] [address] * (ABNORMAL) Basic Metabolic Panel (non-fasting) (12/14/2017 4:40 AM EDT) Glucose Lvl 159 65 - 199 mg/dL [facility] Comment:Diabetes: >=200 mg/d L plus symptoms BUN 34(H) 8 - 18 mg/dL [facility] Comment:delta result recheck ed-KLA Creatinine 2.20(H) 0.70 - 1.20 mg/dL [facility] [facility] Comment:delta result recheck ed-KLA Sodium 137 135 - 145 mmol/L [facility] Potassium 3.5 3.5 - 5.0 mmol/L [facility] Comment: Please note: ??Patients with WBC >100,000 may have falsely elevated Potassium levels. ??For accurate Potassium quantification in these patients send serum separator tube (gold top) for subsequent determinations. ??Contact the Clinical Chemistry Laboratory if there are any questions. Chloride 99 98 - 107 mmol/L [facility] CO2 22 22 - 31 mmol/L [facility] Anion Gap 16(H) 5 - 15 mmol/L [facility] Calcium 7.6(L) 8.5 - 10.5 mg/dL [facility] Estimated GFR 25(L) >=60 mL/min/1. 73 m?? [facility] Comment: The eGFR was calculated using the CKD-EPI equation. As with all creatinine based estimates of kidney function, eGFR values calculated with the CKD-EPI equation are not accurate in patients with acute kidney failure, extremes of body mass or the acutely ill. [email or web address] eGFR 29(L) >=60 mL/min/1. 73 m?? [facility] Comment: The eGFR was calculated using the CKD-EPI equation. As with all creatinine based estimates of kidney function, eGFR values calculated with the CKD-EPI equation are not accurate in patients with acute kidney failure, extremes of body mass or the acutely ill. [email or web address] Blood specimen (specimen) 12/14/2017 4:40 AM EDT 12/14/2017 4:57 AM EDT Narrative Resulting Agency Comment Spec In Lab Mali Lakhani MD CHEMISTRY ORDERABLES [facility] [place] [address] * Scan, Peripheral Blood (12/13/2017 5:16 AM EDT) Plat Estimate Increased [facility] RBC Morphology Abnormal [facility] Macrocytes 1-5 /HPF [facility] Sammie Cells 1-5 /HPF [facility] Blood specimen (specimen) 12/13/2017 5:16 AM EDT 12/13/2017 5:25 AM EDT Narrative Resulting Agency Comment Spec In Lab Pallavi Green MD HEMATOLOGY ORDERABLES Performing Organization Address City/State/[facility] Co de Phone Number [facility] [place] [address] * (ABNORMAL) Differential, Automated (12/13/2017 5:16 AM EDT) Neutrophils % 89.7 % [facility] Neutr Abs (ANC) 20.59(H) 1.70 - 6.10 x10(3)/mc L [facility] Lymphocytes % 1.9 % [facility] Lymphocytes Abs 0.4(L) 0.9 - 3.2 x10(3)/mc L [facility] Monocytes % 7.4 % [facility] Monocyte Abs 1.7(H) 0.3 - 0.9 x10(3)/mc L [facility] Eosinophils % 0.0 % [facility] Eosinophils Abs 0.0 0.0 - 0.4 x10(3)/mc L [facility] Basophils % 0.2 % [facility] Basophils Abs 0.0 0.0 - 0.1 x10(3)/mc L [facility] Immature Gran % 0.80 % [facility] Comment: Immature granulocytes(IG's)percentage and absolute count will include metamyelocytes, myelocytes, and promyelocytes. Blood smears from CBCs yielding IG's will be scanned manually for concordance. If this scan disagrees with the automated IG or if promyelocytes are noted, a manual differential will be performed. Nova Gran Abs 0.18(H) 0.00 - 0.04 x10(3)/mc L [facility] Blood specimen (specimen) 12/13/2017 5:16 AM EDT 12/13/2017 5:25 AM EDT Narrative Resulting Agency Comment Spec In Lab Pallavi Green MD HEMATOLOGY ORDERABLES [facility] [place] [address] * (ABNORMAL) Hemogram (12/13/2017 5:16 AM EDT) WBC 23.0(H) 4.0 - 9.5 x10(3)/[facility] RBC 2.89(L) 4.00 - 5.21 x10(6)/[facility] Hemoglobin 9.0(L) 11.7 - 15.5 gm/dL [facility] Hematocrit 28.4(L) 35.7 - 45.8 % [facility] MCV 98.3(H) 82.6 - 94.4 [facility] MCH 31.1 27.1 - 32.0 pg [facility] MCHC 31.7 31.7 - 35.0 gm/dL [facility] Platelets 380(H) 145 - 357 x10(3)/[facility] RDWSD 54.8(H) 37.0 - 46.0 [facility] RDWCV 15.1(H) 11.5 - 14.1 % [facility] MPV 8.9 7.6 - 12.9 [facility] nRBC % Auto 0.0 % [facility] nRBC Abs Auto 0.000 0.000 - 0.000 x10(3)/[facility] Blood specimen (specimen) 12/13/2017 5:16 AM EDT 12/13/2017 5:25 AM EDT Narrative Resulting Agency Comment Spec In Lab Pallavi Green MD HEMATOLOGY ORDERABLES [facility] [place] [address] * (ABNORMAL) Magnesium (12/13/2017 5:16 AM EDT) Pathologist [facility] Magnesium 0.63(L) 0.69 - 1.07 mmol/L [facility] Blood specimen (specimen) 12/13/2017 5:16 AM EDT 12/13/2017 5:25 AM EDT Narrative Resulting Agency Comment Spec In Lab Mali Lakhani MD CHEMISTRY ORDERABLES Performing Organization Address [facility]/ZIP Co de Phone Number [facility] [place] [address] * (ABNORMAL) Basic Metabolic Panel (non-fasting) (12/13/2017 5:16 AM EDT) [facility] Glucose Lvl 184 65 - 199 mg/dL [facility] Comment:Diabetes: >=200 mg/d L plus symptoms BUN 14 8 - 18 mg/dL [facility] Creatinine 1.19 0.70 - 1.20 mg/dL [facility] Sodium 142 135 - 145 mmol/L [facility] Potassium 3.2(L) 3.5 - 5.0 mmol/L [facility] Comment: Please note: ??Patients with WBC >100,000 may have falsely elevated Potassium levels. ??For accurate Potassium quantification in these patients send serum separator tube (gold top) for subsequent determinations. ??Contact the Clinical Chemistry Laboratory if there are any questions. Chloride 103 98 - 107 mmol/L [facility] CO2 20(L) 22 - 31 mmol/L [facility] Anion Gap 19(H) 5 - 15 mmol/L [facility] Calcium 7.8(L) 8.5 - 10.5 mg/dL [facility] Estimated GFR 52(L) >=60 mL/min/1. 73 m?? [facility] Comment: The eGFR was calculated using the CKD-EPI equation. As with all creatinine based estimates of kidney function, eGFR values calculated with the CKD-EPI equation are not accurate in patients with acute kidney failure, extremes of body mass or the acutely ill. [email or web address] eGFR 60 >=60 mL/min/1. 73 m?? [facility] Comment: The eGFR was calculated using the CKD-EPI equation. As with all creatinine based estimates of kidney function, eGFR values calculated with the CKD-EPI equation are not accurate in patients with acute kidney failure, extremes of body mass or the acutely ill. [email or web address] Blood specimen (specimen) 12/13/2017 5:16 AM EDT 12/13/2017 5:25 AM EDT Narrative Resulting Agency Comment Spec In Lab Mali Lakhani MD CHEMISTRY ORDERABLES Performing Organization Address City/State/[facility] Co de Phone Number [facility] [place] [place] [address] * SCAN DOC: SWIM INSTRUCTOR (12/12/2017 12:00 AM EDT) Anatomical Region Laterality Modality Other Narrative 12/12/2017 12:00 AM EDT Ordered by an unspecified provider. Scanning Provider MEDIA MGR SCAN EXT O RDR/RSLT documented in this encounter Visit Diagnoses Diagnosis History of breast cancer Personal history of malignant neoplasm of breast documented in this encounter Administered Medications Inactive Administered Medications - up to 3 most recent administrations Medication Order MAR Action Action Date Dose Rate Site acetaminophen (TYLENOL) tablet 1,000 mg 1,000 mg, Oral, ONCE, 1 dose, On Sun12/12/17 at 1400, Administer with SIP of H2O only., Day of Surgery (Day of Procedure), Routine Given 12/12/2017 2:12 PM EDT 1,000 mg acetaminophen (TYLENOL) tablet 1,000 mg 1,000 mg, Oral, EVERY 8 HOURS SCHEDULED, First dose on Sun12/12/17 at 2200, Until Discontinued, Maximum total acetaminophen dose 4 grams per 24 hours., Routine Given 12/16/2017 1:49 PM EDT 1,000 mg Given 12/16/2017 6:17 AM EDT 1,000 mg Given 12/15/2017 8:48 PM EDT 1,000 mg atorvastatin (LIPITOR) tablet 20 mg 20 mg, Oral, EVERY EVENING, First dose on Sun12/12/17 at 2300, Until Discontinued, Routine Given 12/15/2017 8:4 7 PM EDT 20 mg Given 12/14/2017 8:24 PM EDT 20 mg Given 12/13/2017 9:52 PM EDT 20 mg ceFAZolin (ANCEF) 1g in dextrose 5% 50mL 1 g, Intravenous, EVERY 8 HOURS, 2 doses, First dose on Sosa 12/13/17 at 0300, Last dose on Sosa 12/13/17 at 1100, Administer over 30 Minutes, *Beta-lactam based antibiotics (eg. Ampicillin, Cefazolin, Aztreonam) should be administered within 4 hours of the preceding intraoperative dose. *Vancomycin, Flouroquinolones, Clindamycin, Gentamicin, and Metronidazole should be administered within 8 hours of the preceding intraoperative dose., Recovery (Recovery-Hospital Unit), Indication for (Active or Suspected): Prophylaxis New Bag 12/13/2017 2:22 AM EDT 1 g 100 mL/hr ceFAZolin (ANCEF) 1g in dextrose 5% 50mL 1 g, Intravenous, EVERY 8 HOURS, 1 dose, First dose (after last modification) on Sosa 12/13/17 at 1100, Administer over 30 Minutes, *Beta-lactam based antibiotics (eg. Ampicillin, Cefazolin, Aztreonam) should be administered within 4 hours of the preceding intraoperative dose. *Vancomycin, Flouroquinolones, Clindamycin, Gentamicin, and Metronidazole should be administered within 8 hours of the preceding intraoperative dose., Indication for (Active or Suspected): Prophylaxis New Bag 12/13/2017 11:25 AM EDT 1 g 100 mL/hr ceFAZolin (ANCEF) 1g in dextrose 5% 50mL 1 g, Intravenous, EVERY 8 HOURS, First dose on Sosa 12/13/17 at 1900, Until Discontinued, Administer over 30 Minutes, Indication for (Active or Suspected): Prophylaxis New Bag 12/15/2017 2:47 AM EDT 1 g 100 mL/ hr New Bag 12/14/2017 6:37 PM EDT 1 g 100 mL/hr New Bag 12/14/2017 11:13 AM EDT 1 g 100 mL/hr ceFAZolin (ANCEF) 1g in dextrose 5% 50mL 1 g, Intravenous, EVERY 12 HOURS, First dose (after last reorder) on 12/15/17 at 1400, Until Discontinued, Administer over 30 Minutes, Renally dosed per P&T approved Renal Dosing Policy, Indication for (Active or Suspected): Prophylaxis New Bag 12/16/2017 1:35 AM EDT 1 g 100 mL/ hr New Bag 12/15/2017 2:30 PM EDT 1 g 100 mL/hr ceFAZolin (ANCEF) 1g in dextrose 5% 50mL 1 g, Intravenous, EVERY 8 HOURS, First dose (after last modification) on 12/16/17 at 1000, Until Discontinued, Administer over 30 Minutes, Renally dosed per P&T approved Renal Dosing Policy - with improvement of renal function, returning to standard dosing, Indication for (Active or Suspected): Prophylaxis New Bag 12/16/2017 10:20 AM EDT 1 g 100 mL /hr diazePAM (VALIUM) tablet 5 mg 5 mg, Oral, EVERY 6 HOURS PRN, Starting on Sosa 12/13/17 at 0508, Until Sosa 12/13/17 at 1030, for muscle spasm/pain control s/p Latissimus dorsi flaps, Routine Given 12/13/2017 5:36 AM EDT 5 mg diazePAM (VALIUM) tablet 5 mg 5 mg, Oral, EVERY 8 HOURS, First dose (after last modification) on Sosa 12/13/17 at 1345, Until Discontinued, Routine Given 12/16/2017 1:49 PM EDT 5 mg Given 12/16/2017 6:17 AM EDT 5 mg Given 12/15/2017 8:47 PM EDT 5 mg dilTIAZem (DILTIAZEM CD) ER capsule 240 mg 240 mg, Oral, DAILY, First dose on Sosa 12/13/17 at 0900, Until Discontinued, DO NOT CRUSH OR OPEN, Routine Given 12/16/2017 8:49 AM EDT 240 mg Given 12/15/2017 9:25 AM EDT 240 mg Given 12/14/2017 9:16 AM EDT 240 mg docusate sodium (COLACE) capsule 100 mg 100 mg, Oral, 2 TIMES DAILY, First dose on Sun12/12/17 at 2315, Until Discontinued, Routine Given 12/16/2017 8:49 AM EDT 100 mg Given 12/15/2017 8:47 PM EDT 100 mg Given 12/15/2017 9:26 AM EDT 100 mg enoxaparin (LOVENOX) injection 40 mg 40 mg, Subcutaneous, NIGHTLY, First dose on Sosa 12/13/17 at 2100, Until Discontinued, Routine Given 12/15/2017 8:47 PM EDT 40 mg Given 12/14/2017 8:24 PM EDT 40 mg Given 12/13/2017 9:51 PM EDT 40 mg FLUoxetine (PROzac) capsule 40 mg 40 mg, Oral, DAILY, First dose on Sosa 12/13/17 at 0900, Until Discontinued, Routine Given 12/16/2017 8:48 AM EDT 40 mg Given 12/15/2017 9:26 AM EDT 40 mg Given 12/14/2017 9:18 AM EDT 40 mg gabapentin (NEURONTIN) capsule 100 mg 100 mg, Oral, NIGHTLY, First dose on Sun12/12/17 at 2315, Until Discontinued, Routine Given 12/15/2017 8:4 7 PM EDT 100 mg Given 12/14/2017 8:25 PM EDT 100 mg Given 12/13/2017 9:51 PM EDT 100 mg HYDROmorphone (DILAUDID) injection 0.2-0.4 mg 0.2-0.4 mg, Intravenous, EVERY 5 MIN PRN, Starting on Sun12/12/17 at 2019, Until Sun12/12/17 at 2224, Pain, Give 0.2 mg every 5 minutes PRN for mild to moderate pain (1-5) Give 0.4 mg every 5 minutes PRN for moderate to severe pain (6-10). Hold for respiratory rate less than 10 per minute. Maximum dose 4 mg over one hour. If multiple pain medications are ordered, start with hydromorphone or morphine and use fentanyl for breakthrough pain., PACU Recovery, Routine Given 12/12/2017 10:13 PM EDT 0.4 mg Given 12/12/2017 9:46 PM EDT 0.4 mg Given 12/12/2017 9:35 PM EDT 0.4 mg labetalol (NORMODYNE,TRANDATE) injection 10 mg 10 mg, Intravenous, ONCE, 1 dose, On Sosa 18 at 0100, Routine Given 12/13/2017 12:36 AM EDT 10 mg labetalol (NORMODYNE,TRANDATE) injection 20 mg 20 mg, Intravenous, ONCE, 1 dose, On Sosa 12/13/17 at 0315, STAT Given 12/13/2017 2:55 AM EDT 20 mg lactated Ringers infusion 1,000 mL 1,000 mL, at 100 mL/hr, Intravenous, CONTINUOUS, Starting on Sun12/12/17 at 1400, Until Sun12/12/17 at 2224, Day of Surgery (Day of Procedure) New Bag 12/12/2017 2:09 PM EDT 1,000 mLs 100 mL/hr lactated Ringers infusion 75 mL/hr, Intravenous, CONTINUOUS, Starting on Sun12/12/17 at 2130, Until Sun12/13/17 at 0806, Recovery (Recovery-Hospital Unit) New Bag 12/12/2017 9:14 PM EDT 75 mL/hr 75 mL/ hr lactated Ringers infusion 75 mL/hr, Intravenous, CONTINUOUS, Starting on Sosa 12/13/17 at 2230, Until Sun12/16/17 at 1831 New Bag 12/14/2017 11:12 AM EDT 75 mL/hr 75 mL/hr New Bag 12/13/2017 10:30 PM EDT 75 mL/hr 75 mL/hr lactobacillus with pectin 1 capsule 1 capsule, Oral, DAILY, First dose on Sun12/13/17 at 0900, Until Discontinued, Routine Given 12/16/2017 8:49 AM EDT 1 capsule Given 12/15/2017 9:26 AM EDT 1 capsule Given 12/14/2017 9:17 AM EDT 1 capsule lidocaine (XYLOCAINE) 10 mg/mL (1 %) injection 3 mg 3 mg (0.3 mL), Subcutaneous, ONCE PRN, 1 dose, Starting on Sun12/12/17 at 1340, Until Sun12/12/17 at 1408, for discomfort with PIV insertion, Day of Surgery (Day of Procedure), Routine Given 12/12/2017 2:08 PM EDT 3 mg losartan (COZAAR) tablet 100 mg 100 mg, Oral, DAILY, First dose on Sosa 12/13/17 at 0900, Until Discontinued, Routine Given 12/16/2017 8:4 8 AM EDT 100 mg Given 12/15/2017 9:26 AM EDT 100 mg Given 12/13/2017 9:14 AM EDT 100 mg oxyCODONE (ROXICODONE) immediate release tablet 10 mg 10 mg, Oral, EVERY 4 HOURS PRN, Starting on Sun12/12/17 at 2102, Until Sosa 12/13/17 at 0030, Pain, pain 8-10, Routine Given 12/12/2017 10:01 PM EDT 10 mg oxyCODONE (ROXICODONE) immediate release tablet 10-15 mg 10-15 mg, Oral, EVERY 3 HOURS PRN, Starting on Sosa 12/13/17 at 0030, Until 12/16/17 at 1831, Pain, severe pain (7-10), Initial dose 10mg. If pain control not adequate in 60 minutes, give additional 5mg, Routine Given 12/14/2017 3:22 AM EDT 10 mg Given 12/13/2017 8:00 PM EDT 10 mg Given 12/13/2017 2:00 PM EDT 10 mg oxyCODONE (ROXICODONE) immediate release tablet 5 mg 5 mg, Oral, EVERY 4 HOURS PRN, Starting on Sun12/12/17 at 0548, Until Sosa 12/13/17 at 0030, Pain, Routine Given 12/12/2017 11:13 PM EDT 5 mg oxyCODONE (ROXICODONE) immediate release tablet 5-10 mg 5-10 mg, Oral, EVERY 3 HOURS PRN, Starting on Sosa 12/13/17 at 0030, Until 12/16/17 at 1831, Pain, moderate pain (4-6), Initial dose 5mg. If pain control not adequate in 60 minutes, give additional 5mg, Routine Given 12/16/2017 3:56 PM EDT 5 mg Given 12/16/2017 9:19 AM EDT 5 mg Given 12/15/2017 8:47 PM EDT 5 mg polyethylene glycol (MIRALAX) packet 17 g 17 g, Oral, DAILY PRN, Starting on 12/15/17 at 2100, Until 12/16/17 at 1831, Constipation, Routine Given 12/16/2017 6:17 AM EDT 17 g potassium chloride (K-DUR/KLOR-CON) extended release tablet 20 mEq 20 mEq, Oral, DAILY, First dose on Sun12/13/17 at 0115, Until Discontinued, 20 mEq tablet may be dissolved in water for administration, Routine Given 12/13/2017 2:21 AM EDT 20 mEq potassium chloride (K-DUR/KLOR-CON) extended release tablet 20 mEq 20 mEq, Oral, 3 TIMES DAILY, First dose (after last modification) on Sosa 12/13/17 at 1100, Until Discontinued, 20 mEq tablet may be dissolved in water for administration, Routine Given 12/16/2017 3:56 PM EDT 20 mEq Given 12/16/2017 8:49 AM EDT 20 mEq Given 12/15/2017 8:47 PM EDT 20 mEq sodium chloride 0.9 % flush 5 mL 5 mL, Intravenous, 2 TIMES DAILY, First dose on Sun12/12/17 at 2315, Until Discontinued, Recovery (Recovery-Hospital Unit), Routine Given 12/16/2017 8:47 AM EDT 5 mLs Given 12/15/2017 8:48 PM EDT 5 mLs Given 12/15/2017 9:29 AM EDT 5 mLs documented in this encounter Active and Recently Administered Medications Times are shown in EDT. Scheduled Medication Order 12/14/2017 12/15/2017 12/16/2017 acetaminophen (TYLENOL) tablet 1,000 mg 1,000 mg, Oral, EVERY 8 HOURS SCHEDULED, First dose on Sun12/12/17 at 2200, Until Discontinued, Maximum total acetaminophen dose 4 grams per 24 hours., Routine 0551 (Given - Provider: Jamil Wallace RN)141 (Given - Provider: Karley Easton RN)2023 (Given - Provider: Celine German RN) 0530 (Given - Provider: Celine German RN)1429 (Given - Provider: Karley Easton RN)2047 (Given - Provider: Gerald Vanessa, JENNYFER) 0617 (Given - Provider: Gerald Vanessa RN)1349 (Given - Provider: Andreea Singleton RN) atorvastatin (LIPITOR) tablet 20 mg 20 mg, Oral, EVERY EVENING, First dose on Sun12/12/17 at 2300, Until Discontinued, Routine 2023 (Given - Provider: Celine German RN) 204 (Given - Provider: Geradl Vanessa, JENNYFER) ceFAZolin (ANCEF) 1g in dextrose 5% 50mL (CANCELED) 1 g, Intravenous, EVERY 8 HOURS, First dose on Sosa 12/13/17 at 1900, Until Discontinued, Administer over 30 Minutes, Indication for (Active or Suspected): Prophylaxis 0323 (New Bag - Provider: Jamil Wallace RN)0353 (Stopped - Provider: Jamil Wallace RN)1113 (New Bag - Provider: Alyssa Cruz)1143 (Stopped - Provider: Karley Easton, JENNYFER)1837 (New Bag - Provider: Karley Easton RN)1907 (Stopped - Provider: Gerald Vanessa RN) 0247 (New Bag - Provider: Celine German, JENNYFER)0317 (Stopped - Provider: Celine German RN) ceFAZolin (ANCEF) 1g in dextrose 5% 50mL (CANCELED) 1 g, Intravenous, EVERY 12 HOURS, First dose (after last reorder) on [facility] 12/15/17 at 1400, Until Discontinued, Administer over 30 Minutes, Renally dosed per P&T approved Renal Dosing Policy, Indication for (Active or Suspected): Prophylaxis 1430 (New Bag - Provider: Karley Easton RN)1500 (Stopped - Provider: Karley Easton RN) 0135 (New Bag - Provider: Gerald Vanessa RN)0205 (Stopped - Provider: Gerald Vanessa RN) ceFAZolin (ANCEF) 1g in dextrose 5% 50mL 1 g, Intravenous, EVERY 8 HOURS, First dose (after last modification) on [place] 12/16/17 at 1000, Until Discontinued, Administer over 30 Minutes, Renally dosed per P&T approved Renal Dosing Policy - with improvement of renal function, returning to standard dosing, Indication for (Active or Suspected): Prophylaxis 1020 (New Bag - Provider: Andreea Singleton RN)1050 (Stopped - Provider: Andreea Singleton RN) diazePAM (VALIUM) tablet 5 mg 5 mg, Oral, EVERY 8 HOURS, First dose (after last modification) on Sosa 12/13/17 at 1345, Until Discontinued, Routine 0552 (Given - Provider: Jamil Wallace RN)1419 (Given - Provider: Karley Easton RN) 0009 (Given - Provider: Celine German RN)0928 (Given - Provider: Karley Easton RN)1429 (Given - Provider: Karley aEston RN)2046 (Given - Provider: Gerald Vanessa, JENNYFER) 0617 (Given - Provider: Gerald Vanessa RN)1349 (Given - Provider: Andreea Singleton RN) dilTIAZem (DILTIAZEM CD) ER capsule 240 mg 240 mg, Oral, DAILY, First dose on Sosa 12/13/17 at 0900, Until Discontinued, DO NOT CRUSH OR OPEN, Routine 0916 (Given - Provider: Alyssa Cruz - Comment: bp 107/64) 09 (Given - Provider: Karley Easton RN) 0849 (Given - Provider: Andreea Singleton RN) docusate sodium (COLACE) capsule 100 mg 100 mg, Oral, 2 TIMES DAILY, First dose on Sun12/12/17 at 2315, Until Discontinued, Routine 18 (Given - Provider: Alyssa Cruz)2024 (Given - Provider: Celine German RN) 09 (Given - Provider: Karley Easton RN)2046 (Given - Provider: Gerald Vanessa, JENNYFER) 0849 (Given - Provider: Andreea Singleton RN) enoxaparin (LOVENOX) injection 40 mg 40 mg, Subcutaneous, NIGHTLY, First dose on Sosa 12/13/17 at 2100, Until Discontinued, Routine 2023 (Given - Provider: Celine German, JENNYFER) 2046 (Given - Provider: Gerald Vanessa, JENNYFER) FLUoxetine (PROzac) capsule 40 mg 40 mg, Oral, DAILY, First dose on Sun12/13/17 at 0900, Until Discontinued, Routine 09 (Given - Provider: Alyssa Cruz) 09 (Given - Provider: Karley Easton RN) 0848 (Given - Provider: Andreea Singleton RN) gabapentin (NEURONTIN) capsule 100 mg 100 mg, Oral, NIGHTLY, First dose on Sun12/12/17 at 2315, Until Discontinued, Routine 2024 (Given - Provider: Celine German, RN) 2046 (Given - Provider: Gerald Vanessa, JENNYFER) lactobacillus with pectin 1 capsule 1 capsule, Oral, DAILY, First dose on Sosa 12/13/17 at 0900, Until Discontinued, Routine 0917 (Given - Provider: Alyssa Cruz) 0926 (Given - Provider: Karley Easton RN) 0849 (Given - Provider: Andreea Singleton RN) losartan (COZAAR) tablet 100 mg 100 mg, Oral, DAILY, First dose on Sosa 12/13/17 at 0900, Until Discontinued, Routine 1200 (Not Given - Provider: Karley Easton RN - Reason: Order parameters not met) 0926 (Given - Provider: Karley Easton RN) 0848 (Given - Provider: Andreea Singleton RN) potassium chloride (K-DUR/KLOR-CON) extended release tablet 20 mEq 20 mEq, Oral, 3 TIMES DAILY, First dose (after last modification) on Sun12/13/17 at 1100, Until Discontinued, 20 mEq tablet may be dissolved in water for administration, Routine 0916 (Given - Provider: Alyssa Cruz - Comment: K+ 3.5)141 (Given - Provider: Karley Easton RN)2024 (Given - Provider: Celine German RN) 0926 (Given - Provider: Kraley Easton RN)142 (Given - Provider: Karley Easton RN)2046 (Given - Provider: Gerald Vanessa RN) 0849 (Given - Provider: Andreea Singleton, JENNYFER)1556 (Given - Provider: Andreea Singleton RN) sodium chloride 0.9 % flush 5 mL 5 mL, Intravenous, 2 TIMES DAILY, First dose on Sun12/12/17 at 2315, Until Discontinued, Recovery (Recovery-Hospital Unit), Routine 0900 (Not Given - Provider: Alyssa Cruz - Reason: See comment - Comment: ivf running)2023 (Given - Provider: Celine German RN) 09 (Given - Provider: Karley Easton RN)2047 (Given - Provider: Gerald Vanessa RN) 0847 (Given - Provider: Andreea Singleton, RN) Continuous Medication Order 12/14/2017 12/15/2017 12/16/2017 lactated Ringers infusion 75 mL/hr, Intravenous, CONTINUOUS, Starting on Sosa 12/13/17 at 2230, Until 12/16/17 at 1831 1112 (New Bag - Provider: Alyssa Cruz) PRN Medication Order 12/14/2017 12/15/2017 12/16/2017 bisacodyl (DULCOLAX) suppository 10 mg 10 mg, Rectal, DAILY PRN, Starting on 12/12/17 at 2249, Until 12/16/17 at 1831, Constipation, Administer if needed per patient's routine or if no bowel movement within 48 hours to achieve: (1) One bowel movement at least every 48 hours, AND (2) Without straining. - If multiple PRN bowel medications ordered, start with magnesium hydroxide, then bisacodyl. - Multiple medications may be given concomitantly for constipation., Routine lidocaine (XYLOCAINE) 10 mg/mL (1 %) injection 3 mg 3 mg (0.3 mL), Subcutaneous, ONCE PRN, 1 dose, Starting on 12/12/17 at 2249, Until 12/16/17 at 1831, for discomfort with PIV insertion, Recovery (Recovery-Hospital Unit), Routine oxyCODONE (ROXICODONE) immediate release tablet 10-15 mg(Linked Group 1) 10-15 mg, Oral, EVERY 3 HOURS PRN, Starting on Sosa 12/13/17 at 0030, Until 12/16/17 at 1831, Pain, severe pain (7-10), Initial dose 10mg. If pain control not adequate in 60 minutes, give additional 5mg, Routine 0322 (Given - Provider: aJmil Wallace RN)1058 (See Alternative - Provider: Alyssa Cruz)183 (See Alternative - Provider: Karley Easton RN) 0604 (See Alternative - Provider: Celine German RN)2046 (See Alternative - Provider: Gerald Vanessa RN) 0919 (See Alternative - Provider: Andreea Singleton, JENNYFER)1556 (See Alternative - Provider: Andreea Singleton RN) oxyCODONE (ROXICODONE) immediate release tablet 5-10 mg(Linked Group 1) 5-10 mg, Oral, EVERY 3 HOURS PRN, Starting on Sosa 12/13/17 at 0030, Until 12/16/17 at 1831, Pain, moderate pain (4-6), Initial dose 5mg. If pain control not adequate in 60 minutes, give additional 5mg, Routine 0322 (See Alternative - Provider: Jamil Wallace RN)1058 (Given - Provider: Alyssa Cruz - Comment: patient aware she will be reassessed within 1 hour to determine follow-up pain score)183 (Given - Provider: Karley Easton RN) 0604 (Given - Provider: Celine German RN)2047 (Given - Provider: Gerald Vanessa, JENNYFER) 0919 (Given - Provider: Andreea Singleton RN)1556 (Given - Provider: Andreea Singleton RN) polyethylene glycol (MIRALAX) packet 17 g 17 g, Oral, DAILY PRN, Starting on 12/15/17 at 2100, Until 12/16/17 at 1831, Constipation, Routine 0617 (Given - Provider: Gerald Vanessa, JENNYFER) sodium chloride 0.9 % flush 5-20 mL 5-20 mL, Intravenous, EVERY 1 MIN PRN, Starting on 12/12/17 at 2249, Until 12/16/17 at 1831, flush, Flush pertains to all indwelling lines. Flush per protocol found in the job aid using the link provided on this medication record., Recovery (Recovery-Hospital Unit), Routine Linked Groups Order Group 1: oxyCODONE (ROXICODONE) immediate release tablet 5-10 mgJump to med 5-10 mg, Oral, EVERY 3 HOURS PRN, Starting on Sosa 12/13/17 at 0030, Until 12/16/17 at 1831, Pain, moderate pain (4-6), Initial dose 5mg. If pain control not adequate in 60 minutes, give additional 5mg, Routine Or oxyCODONE (ROXICODONE) immediate release tablet 10-15 mgJump to med 10-15 mg, Oral, EVERY 3 HOURS PRN, Starting on Sosa 12/13/17 at 0030, Until 12/16/17 at 1831, Pain, severe pain (7-10), Initial dose 10mg. If pain control not adequate in 60 minutes, give additional 5mg, Routine documented in this encounter Care Teams Custodial Services Manager Relationship Specialty Start Date End Date Trinh Coates MD [address] [place] [address] PCP - General 01/11/10 documented as of this encounter
--- OUTSIDE RECORDS SUMMARY | 2023-09-07 11:29 | XMS_ITS | Encounter Summary ---
Author Organization [facility] Address [facility] [place] [address] Care Team Providers Care Annealing Furnace Operator Name Role Phone Trinh Coates MD Primary Care Provider [phone] Reason for Referral * Physical Therapy (Routine) - Specialty Diagnoses / Procedures Referred By Diamante marin Referred To Contact Physical Therapy Diagnoses Malignant neoplasm of upper-outer quadrant of left female breast, unspecified estrogen receptor status Emily Choi MD [facility] [place] [address] Referral ID Status Reason Start Date Expiration Date V isits Requested Visits Authorized [id number] Evaluate and Treat 01/01/2018 06/30/2018 12 12 Reason for Visit * Consultation (Routine) - [...] CONSULT CONTINUING PRG RADIATION MANAGEMENT, 5 TREATMENTS [id number] Emily Choi MD [facility] [place] [address] [facility] Rad Onc Office [address] [place] [phone] Referral ID Status Reason Start Date Expiration Date V isits Requested Visits Authorized [id number] Consult, Test & Treat 01/01/2018 04/22/2018 28 28 Encounter Details Date Type Department Care Team (Latest Contact Info) Description 01/01/2018 11:30 AM EST Ancillary Appointment Radiation Oncology at [address] [phone] Emily Choi MD [facility] [place] [address] Malignant neoplasm of upper-outer quadrant of left [...] this encounter Patient Instructions * Patient Instructions* Narcisa Hair RN - 01/01/2018 11:30 AM EST Information for Patients receiving radiation therapy to the Breast Approximately two weeks after your first treatment, you may begin to experience side effects causedby the radiation. These effects may continue throughout the treatment period and not start improving until 1-2 weeks after treatment is completed. Your doctor will tell you which side effects you aremost likely to experience, when you will notice them and how long they might last. It is important to follow the appropriate instructions to minimize your discomfort. Skin Care ??? Wash skin in the treatment field with lukewarm water and mild or moisturizing, unscented soap daily. Blot skin dry with a soft towel. ??? Do not apply any ointment, salve, deodorant, perfume, cologne, cosmetic or self-remedy to the treatment area while you are undergoing radiation and for 1-2 weeks following treatment. An all natural deodorant with no aluminum can be used if necessary. ??? Moisturizing cream will be provided for you. This may be used in the treatment area once daily beginning on your first treatment day. Do not apply 2 hours before your radiation treatments. As dryness/redness develop you can use this more often. ??? Do not rub or scratch the skin in the treatment field. This includes shaving unless you use an electric razor. If your skin becomes dry or itchy, tell your nurse or doctor. If necessary, your doctor may order a medication specifically for this problem. ??? Do not use hot water bottles, heating lights, electric heating pads, or hot packs to the treatment area. ??? Keep treated areas out of the sun throughout the treatment period. Be careful of sun exposure to the treatment field for one year following treatment. Please use SPF> 30 to all exposed areas of skin and limit sun exposure. ??? Avoid tight fitting clothes. We would prefer that you wear a cotton t-shirt instead of a bra. If you are unable to go without a bra please wear a soft cotton bra without underwire. ??? Examine your skin in the treatment area daily and watch for changes. If you cannot reach the whole treatment field ask a family member to look at it and apply cream as needed. Be careful to keep the area under your breast clean and dry as this area can get irritated first. ??? You will meet with your nurse and doctor weekly. They will check your skin and help you with any side effects you are having. Please ask to see the nurse if you have concerns in between these days. ??? During the last weeks of treatment you may notice some peeling of skin and/or a moist reaction.Be sure to let us know if this happens so we can provide you with further skin care instructions.. ??? Continue to stay active, walk daily, eat healthy foods and drink several glasses of water each day. Fatigue You may notice that you feel unusually tired towards the end of treatment. This is not unusual. We recommend that you pace your activities and plan for rest periods to avoid becoming over-tired. Feel free to direct any questions or concerns you may have related to your treatment to your nurse or doctor. [facility] Radiation Oncology Our normal business hours are: Sunday - Sunday 8 AM to 5 PM [facility] [place], [place] For emergent situations after hours please call for either location and ask for the Radiation Oncologist provider relations specialist. documented in this encounter Progress Notes * Narcisa Hair RN - 01/01/2018 11:30 AM EST Radiation Oncology Simulation Note Patient is here for radiation planning , undergoing a simulation to the left chest wall for breast cancer treatment . Usual radiation oncology routines and purpose of on treatment visits every Sunday were explained. 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 * Emily Choi MD - 01/01/2018 11:30 AM EST Here for sim. 11/15/17 chemo completed. 12/12/17 B workforce planning analyst replacement w/implants. 2 drains placed on each side. 12/25/17 fu w/[facility]; resume PT for lymphedema; rtc 1 wk. S: Drains still in place. O: 10 cm long sutured incision w/in prior L mastectomy scar; incision healing well. [address] in L mid ax line, 10 cm inf to mastectomy scar. Vertical scar from original mastectomy surgery extends from L axilla inferiorly along L post ax line by 30 cm. No visible/palpable ca L chest wall/recon'd breast. Decreased ROM L arm around shoulder; unable to raise L arm to shoulder level. L arm inlymphedema wrap. A: Needs more time for healing w/removal of drains from L & increasing ROM L arm so can raise Larm above shoulder & behind head for xrt tx position. P: Sim resched'd for 01/16/18. Rashaad [facility]N [facility] tomorrow. PT referral to Tina healy. documented in this encounter Plan of Treatment Upcoming Encounters Date Type Department Care Team (Late st Contact Info) Description 01/22/2024 10:30 AM EST Appointment Mammography/DXA at [place] [phone] Ladi Mendosa MD [facility] [place] [address] 01/30/2024 11:30 AM EST Office Visit Dermatology at [address] [place] [phone] Nilda Luis MD [facility] [address] [address] 02/15/2024 9:30 AM EST [place] [address] [place] [address] Scheduled Referrals Name Type Priority Associated Diagnoses Orde r Schedule Referral to Physical Therapy Outpatient Referral Routine Malignant neoplasm of upper-outer quadrant of left female breast, unspecified estrogen receptor status Ordered: 01/01/2018 documented as of this encounter Visit Diagnoses Diagnosis Malignant neoplasm of upper-outer quadrant of left female breast, unspecified estrogen receptor status documented in this encounter Care Teams Annealing Furnace Operator Relationship Specialty Start Date End Date Trinh Coates MD [address] [place] [address] PCP - General 01/11/10 documented as of this encounter
--- OUTSIDE RECORDS SUMMARY | 2023-09-07 11:29 | XMS_ITS | Encounter Summary ---
Author Organization [facility] [place] [address] Care Team Providers Care Conveyor Installer Name Role Phone Trinh Coates MD Primary Care Provider [phone] Reason for Referral * Diagnostic Test (Routine) - Closed Specialty Diagnoses / Procedures Referred By Diamante marin Referred To Contact Radiology Diagnoses Malignant neoplasm of upper-outer quadrant of left breast in female, estrogen receptor positive Procedures IR Mediport Removal Piter Barnett MD [facility] DR HEMATOLOGY/[place] [address] [facility] [place] [address] Referral ID Status Reason Start Date Expiration Date V isits Requested Visits Authorized [id number] Closed Specialty Service Requested 01/07/2018 01/07/2019 1 1 Encounter Details Date Type Department Care Team (Late st Contact Info) Description 12/05/2017 10:30 AM EDT Office Visit Hematology [place] [phone] Piter Barnett MD [facility] [place]OLOG[place] [address] Malignant neoplasm of upper-outer quadrant [...] Sign Reading Time Taken Comments Blood Pressure 151/103 12/05/2017 10:38 AM EDT took BP three times, all came out the same Pulse 85 12/05/2017 10:33 AM EDT Temperature 36.4 ??C (97.5 ??F) 12/05/2017 1 0:33 AM EDT Respiratory Rate 17 12/05/2017 10:3 3 AM EDT Oxygen Saturation 98% 12/05/2017 10: 33 AM EDT Inhaled Oxygen Concentration - - Weight 79.5 kg (175 lb 3.2 oz) 12/05/2017 10:33 AM EDT Height 155 cm (5' 1.02) 12/05/2017 10: 33 AM EDT Body Mass Index 33.08 12/05/2017 10:33 AM EDT documented in this encounter Progress Notes * Abby Stevenson MD - 12/05/2017 10:30 AM EDT Breast cancer Follow up visit HPI: Diagnosis of Invasive ductal carcinoma, left breast, in March 2017. A. 2.0 cm cancer, high-grade, grade 3. ER/HI +++, HER-2/pat negative, 4/18 nodes (1/18 additional nodes with ITC). LVI negative. B. S/P left MRM and D IEP recon. 1. Abdominal wound dehiscence and possible infection. C. S/P right prophylactic MRM and deep reconstruction, pathology benign. 07/20/17: Started adjuvant chemotherapy with dose-dense AC. 10/04/17: Transitioned to dose-dense Taxol adjuvant chemo. PMH: Past Medical History: Diagnosis Date ??? [...] developed a contralateral BrCa at age 48. Morganin - at age 44. Alive, no testing Patient has a daughter and sister. There is also colon ca on her mother's side. She had genetic test drawn yesterday, results pending. Interval Hx/ROS: Completed chemotherapy at the end of October. Overall doing well. She has plastic surgery breast reconstruction next week (12/14/17), which she is eager for. 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 Neuropathy described as tingling, numbness, and sometimes pain of her bilat fingers and feet. Occasionally affects her walking and feels she sometimes drops items. Denies falls, headaches, change in vision, or weakness. She has Persistent L. Arm swelling from lymphedma - goes to PT once weekly and uses an ritika bandage wrap. Otherwise doing well. Denies HAs, change in vision, cough, SOB, fevers, bleeding, nausea/emesis, change in bowel or bladder function. ROS otherwise neg. Exam Most Recent Vitals: 12/05/17 1038 BP: (!) 151/103 Pulse: Resp: Temp: SpO2: Gen: WD/WN F, A&C in NAD Skin: warm and dry, no suspect rashes HEENT: Conjunctiva clear, sclera anicteric, PERRL, EOMI, MMM, OP clear Neck: Supple Lymph: no cervical, supraclavicular, or axillary adenopathy Chest: CTA Bilat Breast: exam deferred, s/p bilat mastectomies Cardiac: RRR, no M/R/G Abdomen: Soft, ND/NT, no appreciable HSM Extremities: WWP w/out cyanosis. L. Arm > R. Arm lymphedema - arm wrapped w/ significant ritika-bandage Neuro: No gross neuro deficits Recent Results (from the past 24 hour(s)) Comprehensive metabolic panel (non-fasting) Result Value Ref Range Glucose Lvl 118 65 - 199 mg/dL BUN 12 8 - 18 mg/dL Creatinine 0.89 0.70 - 1.20 mg/dL Sodium 145 135 - 145 mmol/L Potassium 3.5 3.5 - 5.0 mmol/L Chloride 105 98 - 107 mmol/L CO2 25 22 - 31 mmol/L Anion Gap 15 5 - 15 mmol/L Calcium 9.1 8.5 - 10.5 mg/dL Total Protein 6.6 6.1 - 8.0 gm/dL Albumin 3.9 3.2 - 5.2 gm/dL AST 15 0 - 30 unit/L ALT 18 0 - 30 unit/L Alk Phos 122 (H) 40 - 104 unit/L Total Bilirubin 0.2 0.2 - 1.3 mg/dL eGFR 73 >=60 mL/min/1.73 m?? eGFR 85 >=60 mL/min/1.73 m?? Hemogram Result Value Ref Range WBC 10.8 (H) 4.0 - 9.5 x10(3)/mcL RBC 3.22 (L) 4.00 - 5.21 x10(6)/mcL Hemoglobin 10.1 (L) 11.7 - 15.5 gm/dL Hematocrit 31.2 (L) 35.7 - 45.8 % MCV 96.9 (H) 82.6 - 94.4 fL MCH 31.4 27.1 - 32.0 pg MCHC 32.4 31.7 - 35.0 gm/dL Platelets 403 (H) 145 - 357 x10(3)/mcL RDWSD 54.4 (H) 37.0 - 46.0 fL RDWCV 15.4 (H) 11.5 - 14.1 % MPV 8.6 7.6 - 12.9 fL nRBC % Auto 0.0 % nRBC Abs Auto 0.000 0.000 - 0.000 x10(3)/mcL Differential, Automated Result Value Ref Range Neutrophils % 70.1 % Neutr Abs (ANC) 7.54 (H) 1.70 - 6.10 x10(3)/mcL Lymphocytes % 13.0 % Lymphocytes Abs 1.4 0.9 - 3.2 x10(3)/mcL Monocytes % 11.1 % Monocyte Abs 1.2 (H) 0.3 - 0.9 x10(3)/mcL Eosinophils % 3.5 % Eosinophils Abs 0.4 0.0 - 0.4 x10(3)/mcL Basophils % 1.2 % Basophils Abs 0.1 0.0 - 0.1 x10(3)/mcL Immature Gran % 1.10 % Nova Gran Abs 0.12 (H) 0.00 - 0.04 x10(3)/mcL Assessment and Plan: Mrs. Sandoval is a 52 yo woman with a PMH of high-grade, node-positive left breast cancer ER+/HI+/HER2- (dx 03/2017, s/p bilateral mastectomy) who completed adjuvant chemo in October 2017. She is scheduled for bilateral breast reconstruction surgery with Plastic Surgery next week. She is then planning on meeting with Dr. Steph horan/ radiation oncology in early December to discuss radiation treatment. Given her hormone receptor positive disease, we discussed the role of endocrine therapy in reducingthe risk of recurrence or distant metastasis. Given her LMP was right before chemo initiation, we recommend adjuvant Tamoxifen upon radiation completion. We discussed the risks, benefits, and common side effects of Tamoxifen, and she agrees to proceed when radiation is complete. 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 Recommend initiation of Gabapentin for symptom control, as tolerated. Will defer ongoing hypokalemia evaluation to PCP. All questions were answered. Plan: - Initiate Gabapentin nightly for neuropathy (discussed dosing titration) - continue massage/PT for arm lymphedema - Initiate Tamoxifen when radiation is complete (Rx sent) - Follow up in 6 months Abby Stevenson MD Hematology/Oncology Fellow Pager #[phone] 12/05/17 * Piter Barnett MD - 12/05/2017 10:30 AM EDT Attending Attestation I saw the patient with in clinic. My exam and review of the data are in agreement with that documented in her note today. Concur with recommendations, as outlined. Hardik Barnett MD Oncology documented in this encounter Miscellaneous Notes * Addendum Note - Piter Barnett MD - 12/05/2017 10:30 AM EDTAddended by: PITER BARNETT on: 01/07/2018 03:40 PM Modules accepted: Orders documented in this encounter Plan of Treatment Upcoming Encounters Date Type Department Care Team (Late st Contact Info) Description 01/22/2024 10:30 AM EST Appointment Mammography[place] [phone] Ladi Mendosa MD [facility] HEMATOLOGY/[place] [address] 01/30/2024 11:30 AM EST Office Visit Dermatology at [address] [phone] Nilda Luis MD [facility] DR LIDIA AMEZCUA-DERMATOLGY [place], [place] [phone] 02/15/2024 9:30 AM EST [place] [phone] [place] [address] documented as of this encounter Results * IR Mediport Removal (01/25/2018 2:49 PM EST) Anatomical Region Laterality Modality X-Ray Angiograph y Addenda Addendum by Marcos Dey MD on 03/16/2018 8:41 PM EST I was present during the intraservice time as documented by the IR nurse. Narrative 01/25/2018 5:09 PM EST IR PROCEDURE NOTE Procedure: Chest port removal Indication for Procedure: Breast cancer, s/p chemotherapy, vascular access no longer needed Procedure events and findings: After obtaining informed consent patient was positioned supine on procedure table. ??right neck base and upper chest port site prepped and draped, maximum sterile barrier technique was used throughout. Due to the painful nature of the procedure, patient received split doses of intravenous fentanyl and versed from the IR nurse while pulse, pressure, and oxygen saturation were continuously monitored. Local anesthesia was provided with 1% lidocaine plus 0.25% bupivacaine with epinephrine. A transverse skin incision was made at the level of the port hub. The port was dissected free and removed. The port catheter was withdrawn without incident.Removal of the port reservoir, cuff, and catheter from the patient were confirmed by their identification outside the patient The pocket incision was closed with interrupted deep 2-0 resorbable suture, superficial 4-0 resorbable suture and tissue adhesive. Medications: Fentanyl 150 mcg IV, Versed 2 mg IV 1% Lidocaine <10ccs subcutaneous Antibiotic Prophylaxis: None ? Est Blood Loss: <10 cc Complications: ??No immediate Impression: Removal of right chest port and port catheter. Associate Provider: ??Scooby Muñoz APRN Attending: Dr. Dey Piter Barnett MD IMG IR ORDERABLES documented in this encounter Visit Diagnoses Diagnosis Malignant neoplasm of upper-outer quadrant of left breast in female, estrogen receptor positive Malignant neoplasm of upper-outer quadrant of left breast in female, estrogen receptor positive documented in this encounter Care Teams Conveyor Installer Relationship Specialty Start Date End Date Trinh Coates MD [address] [place] [address] PCP - General 01/11/10 documented as of this encounter
--- OUTSIDE RECORDS SUMMARY | 2023-09-07 11:29 | XMS_ITS | Encounter Summary ---
Author Organization [facility] Address [facility] [place] [address] Care Team Providers Care Alternative Dispute Resolution Mediator Name Role Phone Trinh Coates MD Primary Care Provider [phone] Reason for Visit * Auth/Cert Specialty Diagnoses / Procedures Referred By Diamante t Referred To Contact Diagnoses Malignant neoplasm of upper-outer quadrant of left female breast Estrogen receptor positive status (ER+) hx of breast cancer Procedures PRO REVISE BREAST RECONSTRUCTION PRO REPLACE TISSUE HAND POTTER PRO SURGERY OF BREAST CAPSULE REVISION OFRECONSTRUCTED BREAST, SUSAN (WRVU 10.41) TISSUE HAND POTTER REPLACEMENT, WITH PERMANENT PROSTHESIS, SUSAN (WRVU 8.01) BREAST, CAPSULOTOMY, OPEN PERIPROSTHETIC -SUSAN (WRVU 9.17) Referral ID Status Reason Start Date Expiration Date Visits Re quested Visits Authorized [id number] 1 1 Encounter Details Date Type Department Care Team (Late st Contact Info) Description 12/12/2017 3:04 PM EDT - 12/12/2017 8:32 PM EDT Surgery [place] [address] Mali Lakhani MD [facility] [place] [address] @BREAST RECONSTRUCTION W/ LAT DORSI FLAP,W/O IMPLANT, SUSAN (WRVU 23.36) Social History Tobacco Use Types Packs/Day Years [...] Sign Reading Time Taken Comments Blood Pressure 157/99 12/12/2017 1:39 PM EDT Pulse 75 12/12/2017 1:39 PM EDT Temperature 36.5 ??C (97.7 ??F) 12/12/2017 1:39 PM ED T Respiratory Rate 16 12/12/2017 1:39 PM EDT Oxygen Saturation 100% 12/12/2017 1:39 PM EDT Inhaled Oxygen Concentration - - [...] Operations: Procedure(s) with comments: REVISION OFRECONSTRUCTED BREAST, SUASN (WRVU 10.41) - Surgeon: Ammy Duration: 5 hours + 2 night stay Timeframe: elective Procedure: revision of breast reconstruction with bilateral latissimus dorsi flaps, placement of permanent implants, capsulotomies CPT: 75972, 02089, 31861, 14724 Surgical site: Breasts, back Side: susan Anesthesia: General Follow up: 10-14 Days After discharge AEE PAT: No Implants needed: 3x @BREAST RECONSTRUCTION W/ LAT DORSI FLAP,W/O IMPLANT, SUSAN (WRVU 23.36) TISSUE HAND POTTER REPLACEMENT, WITH PERMANENT PROSTHESIS, SUSAN (WRVU 8.01) 04/26/17 Procedure(s): Bilateral breast reconstruction with attempted SALVADOR flaps, eventual tissue boiler setter placement with [place] [employer]??600 cc expanders placed bilaterally and filled??with 450 cc of methylene blue impregnated saline.) Complications: right??parietal and visceral pleural tear, arterial flap failure bilaterally ?? Date of surgery: 06/22/17 Procedure(s) left breast wound debridement, excision and closure. Debridement of umbilicus. Deflation of boiler setter volume, This leaves 450 cc in the left tissue boiler setter and 500 cc on the right side [...] PM Emily Choi MD Radiation Oncology at [facility] [phone] 12/25/2017 11:20 AM Jolene Azevedo APRN [facility]astic [facility] 03/12/2018 10:30 AM Lakeisha Reza MD; Flip Angel MD Endocrinology at [facility] [phone] 06/05/2018 2:30 PM Josias Barnett MD Hematology and Oncology at [facility]: [facility] 3K [phone] MEDICATIONS: Your Medications New Medications Dose Details [...] called in to our prescription line at [phone]. Narcotic renewals may be requested from 8am-4pm [...] called in to our prescription line at [phone]. Narcotic renewals may be requested from 8am-4pm [...] Sunday 8 am to 5 pm Call [phone] On weekends or after hours: Call [phone] and ask the belt loop machine operator to page the Plastic Surgery Resident eye care professional. General Instructions None Future Appointments and Orders Future Appointments and Orders Future Appointments Provider Department Dept Phone 12/24/2017 3:00 PM Emily Choi MD Radiation Oncology at [facility] [phone] 12/25/2017 11:20 AM Jolene Azevedo APRN [facility] 4M [phone] 03/12/2018 10:30 AM Lakeisha Reza MD; Flip Angel MD Endocrin[facility] 5C [phone] 06/05/2018 2:30 PM Josias Barnett MD Hematology and Oncology [facility] [phone] Discharge References/Attachments: Discharge References/Attachments None Electronically Signed [...] PM Emily Choi MD Radiation Oncology at [facility] [phone] 12/25/2017 11:20 AM Jolene Azevedo APRN [facility] 4M [phone] 03/12/2018 10:30 AM Lakeisha Reza MD; Flip Angel MD Endocrinology [facility]: [facility] 5C [phone] 06/05/2018 2:30 PM Josias Barnett MD Hematology and Oncology at [facility]: [facility] 3K [phone] MEDICATIONS: Your Medications New Medications Dose Details [...] called in to our prescription line at [phone]. Narcotic renewals may be requested from 8am-4pm [...] called in to our prescription line at [phone]. Narcotic renewals may be requested from 8am-4pm [...] CONTACT INFORMATION: During office hours: Sunday through Cliff 8 am to 5 pm Call [phone] On weekends or after hours: Call [phone] and ask the belt loop machine operator to page the Plastic Surgery Resident eye care professional. documented in this encounter Medications at Time [...] Intake/Output Summary (Last 24 hours) at 12/15/2017 09 Last data filed at 12/15/2017 0530 Gross [...] post-op course Kaveh Whiteside MD 12/15/2017 Pager: [phone] * Aly Jaimes MD - 12/14/2017 7:06 [...] post-op course Aly Jaimes MD 12/14/2017 Pager: [phone] * Lakia Casey RN - 12/13/2017 8:59 PM EDT Images from the original note were not included. Infiltration/Extravasation Scale [facility] [id number] 311/311-B Infiltration appearance: Infiltration harm % for [...] PM Name of Plastics MD (if consulted) FOOD SERVICE ORDER CLERK CARING FOR THIS PATIENT WILL CONTINUE TO [...] post-op course Aly Jaimes MD 12/13/2017 Pager: [phone] * Andreea Garcia MD - 12/13/2017 12:33 [...] to monitor -home CPAP Andreea Garcia Pager: [phone] 12/13/17 12:39 AM * Valerie Stratton RN [...] 04/26/2017 Performed by Mali Lakhani MD at [facility] OR ??? BREAST BIOPSY Right 11/01 ??? BREAST RECONSTRUCTION, IMMEDIATE OR DELAYED, W/ TISSUE HAND POTTER, INCLUDING SUBSEQUENT EXPANSION(WRVU 18.5) Bilateral 04/26/2017 Performed by Mali Lakhani MD at [facility] OR ??? SECTION x 2 ??? DEBRIDEMENT SKIN AND SUBCU, BREAST (WRVU 1.01) 06/22/2017 Performed by Mali Lakhani MD at [facility] OR ??? EXCISION OF RIB, PARTIAL (WRVU 7.26) Bilateral 04/26/2017 Performed by Mali Lakhani MD at [facility] OR ??? FACIAL NERVE MONITORING, SETUP LARYNGEAL (WRVU 1.57) N/A 11/02/2015 Performed by Valentina Lucas MD at [facility] OR ??? FTSG, FREE, DIR CLOSE DONOR SITE, TRUNK, 20 SQ CM OR LESS (WRVU 9.15) Bilateral 04/26/2017 Performed by Mali Lakhani MD at [facility] OR ??? HAND SURGERY Right ??? LYMPHADENECTOMY, AXILLARY, COMPLETE (WRVU 13.87) Left 04/26/2017 Performed by Jolie Menendez MD at [facility] OR ??? MASTECTOMY, SIMPLE, COMPLETE-SUSAN (WRVU 15.85) Bilateral 04/26/2017 Performed by Jolie Menendez MD at [facility] OR ??? MODIFIER , NIPPLE SPARING Bilateral 04/26/2017 Performed by Jolie Menendez MD at [facility] OR ??? PARATHYROIDECTOMY OR EXPLORATION OF PARATHYROID(S) (WRVU 15.6) N/A 11/02/2015 Performed by Valentina Lucas MD at [facility] OR ??? PRG EMG, LARYNX N/A 11/02/2015 FACIAL NERVE MONITORING, SETUP LARYNGEAL performed by Valentina Lucas MD at [facility] OR ??? PRO BREAST RECONSTRUC W FREE FLAP Bilateral 04/26/2017 @BREAST RECONSTRUCTION W/ FREE FLAP, SUSAN (WRVU 42.58) performed by Mali Lakhani MD at [facility] ??? PRO BREAST RECONSTRUC W TISS EXPANDR Bilateral 04/26/2017 BREAST RECONSTRUCTION, IMMEDIATE OR DELAYED, W/ TISSUE HAND POTTER, INCLUDING SUBSEQUENT EXPANSION (WRVU 18.5) performed by Mali Lakhani MD at [facility] OR ? ? PRO DEBRIDEMENT SUBCUTANEOUS TISSUE 20 SQCM/< 06/22/2017 DEBRIDEMENT SKIN AND SUBCU, BREAST (WRVU 1.01) performed by Mali Lakhani MD at [facility] OR ??? PRO EXPLORE PARATHYROID GLANDS N/A 11/02/2015 PARATHYROIDECTOMY OR EXPLORATION OF PARATHYROID(S) performed by Valentina Lucas MD at [facility] OR ? ? PRO FULL THICK GRFT TRUNK <20 SQCM Bilateral 04/26/2017 FTSG, FREE, DIR CLOSE DONOR SITE, TRUNK, 20 SQ CM OR LESS (WRVU 9.15) performed by Mali Lakhani MD at [facility] OR ??? PRO MASTECTOMY, SIMPLE, COMPLETE Bilateral 04/26/2017 MASTECTOMY, SIMPLE, COMPLETE-SUSAN (WRVU 15.85) performed by Jolie Menendez MD at [facility] OR ??? PRO PARTIAL REMOVAL OF RIB Bilateral 04/26/2017 EXCISION OF RIB, PARTIAL (WRVU 7.26) performed by Mali Lakhani MD at [facility] OR ??? PRO REMOVE ARMPITS LYMPH NODES COMPLT Left 04/26/2017 LYMPHADENECTOMY, AXILLARY, COMPLETE (WRVU 13.87) performed by Jolie Menendez MD at [facility] OR ??? PRO REVISE BREAST RECONSTRUCTION Left 06/22/2017 REVISION OF RECONSTRUCTED BREAST (WRVU 10.41) performed by Mali Lakhani MD at [facility] OR ??? PRO THYMECTOMY, TRANSCERVICAL N/A 11/02/2015 THYMECTOMY, TRANSCERVICAL APPROACH performed by Valentina Lucas MD at [facility] OR ??? REVISION OF RECONSTRUCTED BREAST (WRVU 10.41) Left 06/22/2017 Performed by Mali Lakhani MD at [facility] OR ??? SHOULDER SURGERY Left ??? THYMECTOMY, TRANSCERVICAL APPROACH (WRVU 17.16) N/A 11/02/2015 Performed by Valentina Lucas MD at [facility] OR ??? UMBILICAL HERNIA REPAIR Family [...] Pallavi Green MD Plastic Surgery Resident P# [phone] documented in this encounter Miscellaneous Notes * Op Note - Mali Lakhani MD - 12/16/2017 4:31 PM EDT [facility] Operative Note Patient Name: Wendy Sandoval : [id number] MR#: [id number] Case Date: 12/12/2017 Surgeon: Surgeon(s) and Role: * Mali Lakhani MD - Primary * Pallavi Green MD - Resident-Surgeon Hubert Preoperative diagnosis: hx of breast cancer Postoperative diagnosis: hx of breast cancer Procedure(s) (LRB): REVISION OFRECONSTRUCTED BREAST, SUSAN (WRVU 10.41) (Bilateral) @BREAST RECONSTRUCTION W/ LAT DORSI FLAP,W/O IMPLANT, SUSAN (WRVU 23.36) (Bilateral) TISSUE HAND POTTER REPLACEMENT, WITH PERMANENT PROSTHESIS, SUSAN (WRVU 8.01) (Bilateral) Anesthesia: General Estimated Blood Loss: 100 mL Implant Name Type Inv. Item Serial No. Skein Bleacher Lot No. LRB No. Used Action MAMMA,GEL,XTRA,MOD+,RND,405CC ([id number]) (AUTOREQ) - [id number] IMPLANTS MAMMA,GEL,XTRA,MOD+,RND,405CC ([id number]) (AUTOREQ) [id number] [employer] [id number] Right 1 Implanted MAMMA,GEL,XTRA,MOD+,RND,405CC ([id number]) (AUTOREQ) - [id number] IMPLANTS MAMMA,GEL,XTRA,MOD+,RND,405CC ([id number]) (AUTOREQ) [id number] [employer] [id number] Left 1 Implanted Specimens removed during surgery: [...] both sides we thendissected into the tissue boiler setter pocket on both sides and removed intact [...] on Surveillance [continuous indirect monitoring]: Hourly rounding, Masimo, NKE at bedside, call [place] within reach [...] VSS. Pain controlled with scheduled meds, see MAR. Pt has 4 [...] EVALUATION: * Consult Note - Lanre Odonnell RP - 12/15/2017 10:12 AM EDT Clinical Pharmacist Note - Renal Dose Adjustment for Antimicrobials Wendy Sandoval (A# [id number]) is being treated with the following antimicrobial [...] Outcome: Ongoing (Interventions Implemented as Appropriate) 12/13/17 165 Skin Integrity Impairment, Risk/Actual Skin Integrity Impairment, [...] standby Surveillance [continuous indirect monitoring]: Hourly rounding, Masimo, NKE at bedside, call [place] within reach. Patient-specific [...] controlled with PRN and scheduled meds, see APR. Pt has 4 [...] ADLs]: Eyes on Surveillance [continuous indirect monitoring]: Adeline purposeful rounding Patient-specific fall prevention interventions for [...] have shown less than 100 output during ed tech.Patient's pain has been well controlled. Will continue [...] Treviño was pulled today. Due to void . Daughter at bedside. PLAN MOVING FORWARD: Pain [...] Control Outcome: Ongoing (Interventions Implemented as Appropriate) 12/13/1791112/13/17 1651 Safety Interventions Isolation Precautions -- standard precautions maintained Infection Prevention barrier precautions utilized -- Coping Strategies Supportive Measures active listening utilized;goal setting facilitated;positive reinforcement provided;verbalization of feelings encouraged -- Goal: Discharge Needs Assessment 12/13/17 1651 Discharge Needs Assessment Concerns To Be Addressed no discharge needs identified Readmission Within The Last 30 Days no previous admission in last 30 days Goal: Interdisciplinary Rounds/Family Conf Outcome: Ongoing (Interventions Implemented as Appropriate) 12/13/17 1651 Interdisciplinary Rounds/Family Conf Participants patient;family;nursing * Care [...] ??complicated by intraoperative demise followed by Tissue Video Intern placement. Pt had Chemo after surgery and it was completed 11/15. Pt is , works from home, dtr is going to move to [place] and be a speech pathologist, her son is not working presently and is at home. He states he will stay with me until I am feeling good. Pt will have RT and has met with Dr Mendoza. I explained what to expect when she goes M-F. Pt has used [facility] in the past but does not feel the need but if she changes her mind I told her I would put the referral through. Pt states her back feels the worst and I encouraged her to take the pain meds to enable her to move around more easily. Will follow. ?? * Plan of Care - Jamil Wallace, RN - 12/13/2017 5:49 AM EDT Problem: [...] Operative Note Patient Name: Wendy Sandoval : [id number] MR#: [id number] Case Date: 12/12/2017 Surgeon: Surgeon(s) and Role: * Mali Lakhani MD - Primary * Pallavi Green MD - Resident-Surgeon Hubert Preoperative diagnosis: hx of breast cancer Postoperative diagnosis: hx of breast cancer Procedure(s) (LRB): REVISION OFRECONSTRUCTED BREAST, SUSAN (WRVU 10.41) (Bilateral) @BREAST RECONSTRUCTION W/ LAT DORSI FLAP,W/O IMPLANT, SUSAN (WRVU 23.36) (Bilateral) TISSUE HAND POTTER REPLACEMENT, WITH PERMANENT PROSTHESIS, SUSAN (WRVU 8.01) (Bilateral) Anesthesia: General Findings: Implant Name Type Inv. Item Serial No. Skein Bleacher Lot No. LRB No. Used Action MAMMA,GEL,XTRA,MOD+,RND,405CC ([id number]) (AUTOREQ) - [id number] IMPLANTS MAMMA,GEL,XTRA,MOD+,RND,405CC ([id number]) (AUTOREQ) [id number] [employer] [id number] Right 1 Implanted MAMMA,GEL,XTRA,MOD+,RND,405CC ([id number]) (AUTOREQ) - [id number] IMPLANTS MAMMA,GEL,XTRA,MOD+,RND,405CC ([id number]) (AUTOREQ) [id number] [employer] [id number] Left 1 Implanted Complications: none Estimated Blood [...] 01/22/2024 10:30 AM EST Appointment Mammography/[place] [phone] Ladi Mendosa MD [facility] HEMATOLOGY/[place] [address] 01/30/2024 11:30 AM EST Office Visit Dermatology at [address] [place] [address] Nilda Luis MD [facility] DR [place] [address] 02/15/2024 9:30 AM EST [place] [phone] [place] [address] documented as of this encounter Procedures Procedure [...] (NON-FASTING) Routine 12/13/2017 5:16 AM EDT TISSUE HAND POTTER REPLACEMENT, WITH PERMANENT PROSTHESIS, SUSAN (WRVU 7.49) Yes 12/12/2017 3:52 PM EDT hx of breast cancer @BREAST RECONSTRUCTION W/ LAT DORSI FLAP,W/O IMPLANT, SUSAN (WRVU 23.36) Yes 12/12/2017 3:52 PM EDT hx of breast cancer REVISION OFRECONSTRUCTED BREAST, SUSAN (WRVU 11.17) Yes 12/12/2017 3:52 PM EDT hx of breast cancer TISSUE HAND POTTER REPLACE, W/PERMANENT PROSTHESIS, SUSAN Routine 12/12/2017 1:13 PM EDT BREAST RECONSTRUCTION W/ LAT DORSI FLAP,W OR W/O IMPLANT, SUSAN Routine 12/12/2017 1:13 PM EDT DIRECTOR PROCESS ENGINEERING SCAN 12/12/2017 12:00 AM EDT documented in this encounter Results * (ABNORMAL) Comprehensive metabolic panel (non-fasting) (12/15/2017 3:20 PM EDT) Glucose Lvl 182 65 - 199 mg/dL [facility] Comment:Diabetes: >=200 mg/d L plus symptoms BUN 24(H) 8 - 18 mg/dL [facility] Creatinine 1.35(H) 0.70 - 1.20 mg/dL [facility] Sodium 144 135 - 145 mmol/L [facility] Potassium 3.8 3.5 - 5.0 mmol/L [facility] Comment: Please note: ??Patients with WBC >100,000 may have falsely elevated Potassium levels. ??For accurate Potassium quantification in these patients send serum separator tube (gold top) for subsequent determinations. ??Contact the Clinical Chemistry Laboratory if there are any questions. Chloride 109(H) 98 - 107 mmol/L [facility] CO2 22 22 - 31 mmol/L [facility] Anion Gap 13 5 - 15 mmol/L [facility] Calcium 8.2(L) 8.5 - 10.5 mg/dL [facility] Total Protein 5.5(L) 6.1 - 8.0 gm/dL [facility] Albumin 2.6(L) 3.2 - 5.2 gm/dL [facility] AST 15 0 - 30 unit/L [facility] ALT <5 0 - 30 unit/L [facility] Alk Phos 77 40 - 104 unit/L [facility] Total Bilirubin <0.2(L) 0.2 - 1.3 mg/dL [facility] Estimated GFR 44(L) >=60 mL/min/1. 73 m?? [facility] Comment: The eGFR was calculated using the CKD-EPI equation. As with all creatinine based estimates of kidney function, eGFR values calculated with the CKD-EPI equation are not accurate in patients with acute kidney failure, extremes of body mass or the acutely ill. [email or web address] eGFR 51(L) >=60 mL/min/1. 73 m?? [facility] Comment: The eGFR was calculated using the CKD-EPI equation. As with all creatinine based estimates of kidney function, eGFR values calculated with the CKD-EPI equation are not accurate in patients with acute kidney failure, extremes of body mass or the acutely ill. [email or web address]/[facility] Blood specimen (specimen) 12/15/2017 3:20 PM EDT 12/15/2017 3:29 PM EDT Narrative Resulting Agency Comment Spec In Lab Mali Lakhani MD CHEMISTRY ORDERABLES [facility] [place] [address] * (ABNORMAL) Differential, Automated (12/15/2017 10:05 AM EDT) Neutrophils % 76.4 % [facility] Neutr Abs (ANC) 9.98(H) 1.70 - 6.10 x10(3)/mc L [facility] Lymphocytes % 8.9 % [facility] Lymphocytes Abs 1.2 0.9 - 3.2 x10(3)/mc L [facility] Monocytes % 7.8 % [facility] Monocyte Abs 1.0(H) 0.3 - 0.9 x10(3)/[facility] Eosinophils % 5.2 % [facility] Eosinophils Abs 0.7(H) 0.0 - 0.4 x10(3)/[facility] Basophils % 0.7 % [facility] Basophils Abs 0.1 0.0 - 0.1 x10(3)/[facility] Immature Gran % 1.00 % [facility] Comment: Immature granulocytes(IG's)percentage and absolute count will include metamyelocytes, myelocytes, and promyelocytes. Blood smears from CBCs yielding IG's will be scanned manually for concordance. If this scan disagrees with the automated IG or if promyelocytes are noted, a manual differential will be performed. Nova Gran Abs 0.13(H) 0.00 - 0.04 x10(3)/[facility] Blood specimen (specimen) 12/15/2017 10:05 AM EDT 12/15/2017 10:23 AM EDT Narrative Resulting Agency Comment Spec In Lab Aly Jaimes MD HEMATOLOGY ORDERABLE S [facility] [place] [address] * (ABNORMAL) Hemogram (12/15/2017 10:05 AM EDT) WBC 13.1(H) 4.0 - 9.5 x10(3)/[facility] RBC 2.50(L) 4.00 - 5.21 x10(6)/[facility] Hemoglobin 7.7(L) 11.7 - 15.5 gm/dL [facility] Hematocrit 24.6(L) 35.7 - 45.8 % [facility] MCV 98.4(H) 82.6 - 94.4 fL [facility] MCH 30.8 27.1 - 32.[address] [facility] MCHC 31.3(L) 31.7 - 35.0 gm/dL [facility] Platelets 339 145 - 357 x10(3)/[facility] LABORATORY RDWSD 55.8(H) 37.0 - 46.[address] [facility] RDWCV 15.6(H) 11.5 - 14.1 % [facility] MPV 9.2 7.6 - 12.[address] [facility] nRBC % Auto 0.0 % [facility] nRBC Abs Auto 0.000 0.000 - 0.000 x10(3)/[facility] Blood specimen (specimen) 12/15/2017 10:05 AM EDT 12/15/2017 10:23 AM EDT Narrative Resulting Agency Comment Spec In Lab Aly Jaimes MD HEMATOLOGY ORDERABLE S [facility] [place] [address] * (ABNORMAL) Basic Metabolic Panel (non-fasting) (12/15/2017 10:05 AM EDT) Glucose Lvl 199 65 - 199 mg/dL [facility] Comment:Diabetes: >=200 mg/d L plus symptoms BUN 28(H) 8 - 18 mg/dL [facility] Creatinine 1.40(H) 0.70 - 1.20 mg/dL [facility] Sodium 143 135 - 145 mmol/L [facility] Potassium 3.6 3.5 - 5.0 mmol/L [facility] Comment: Please note: ??Patients with WBC >100,000 may have falsely elevated Potassium levels. ??For accurate Potassium quantification in these patients send serum separator tube (gold top) for subsequent determinations. ??Contact the Clinical Chemistry Laboratory if there are any questions. Chloride 110(H) 98 - 107 mmol/L [facility] CO2 22 22 - 31 mmol/L [facility] Anion Gap 11 5 - 15 mmol/L [facility] Calcium 8.2(L) 8.5 - 10.5 mg/dL [facility] Estimated GFR 42(L) >=60 mL/min/1. 73 m?? [facility] Comment: The eGFR was calculated using the CKD-EPI equation. As with all creatinine based estimates of kidney function, eGFR values calculated with the CKD-EPI equation are not accurate in patients with acute kidney failure, extremes of body mass or the acutely ill. [email or web address]/[email or web address] eGFR 49(L) >=60 mL/min/1. 73 m?? [facility] Comment: The eGFR was calculated using the CKD-EPI equation. As with all creatinine based estimates of kidney function, eGFR values calculated with the CKD-EPI equation are not accurate in patients with acute kidney failure, extremes of body mass or the acutely ill. [email or web address]/[email or web address] Blood specimen (specimen) 12/15/2017 10:05 AM EDT 12/15/2017 10:23 AM EDT Narrative Resulting Agency Comment Spec In Lab Mali Lakhani MD CHEMISTRY ORDERABLES [facility] [place] [address] * (ABNORMAL) Basic Metabolic Panel (non-fasting) (12/14/2017 4:40 AM EDT) Glucose Lvl 159 65 - 199 mg/dL [facility] Comment:Diabetes: >=200 mg/d L plus symptoms BUN 34(H) 8 - 18 mg/dL [facility] Comment:delta result recheck ed-KLA Creatinine 2.20(H) 0.70 - 1.20 mg/dL [facility] Comment:delta result recheck ed-KLA Sodium 137 135 - 145 mmol/L [facility] Potassium 3.5 3.5 - 5.0 mmol/L [facility] Comment: Please note: ??Patients with WBC >100,000 may have falsely elevated Potassium levels. ??For accurate Potassium quantification in these patients send serum separator tube (gold top) for subsequent determinations. ??Contact the Clinical Chemistry Laboratory if there are any questions. Chloride 99 98 - 107 mmol/L [facility] CO2 22 22 - 31 mmol/L [facility] Anion Gap 16(H) 5 - 15 mmol/L [facility] Calcium 7.6(L) 8.5 - 10.5 mg/dL [facility] Estimated GFR 25(L) >=60 mL/min/1. 73 m?? [facility] Comment: The eGFR was calculated using the CKD-EPI equation. As with all creatinine based estimates of kidney function, eGFR values calculated with the CKD-EPI equation are not accurate in patients with acute kidney failure, extremes of body mass or the acutely ill. [email or web address]/[email or web address] eGFR 29(L) >=60 mL/min/1. 73 m?? [facility] Comment: The eGFR was calculated using the CKD-EPI equation. As with all creatinine based estimates of kidney function, eGFR values calculated with the CKD-EPI equation are not accurate in patients with acute kidney failure, extremes of body mass or the acutely ill. [email or web address] Blood specimen (specimen) 12/14/2017 4:40 AM EDT 12/14/2017 4:57 AM EDT Narrative Resulting Agency Comment Spec In Lab Mali Lakhani MD CHEMISTRY ORDERABLES [facility] [place] [address] * Scan, Peripheral Blood (12/13/2017 5:16 AM EDT) Plat Estimate Increased [facility] RBC Morphology Abnormal [facility] Macrocytes 1-5 /HPF [facility] Sammie Cells 1-5 /HPF [facility] Blood specimen (specimen) 12/13/2017 5:16 AM EDT 12/13/2017 5:25 AM EDT Narrative Resulting Agency Comment Spec In Lab Pallavi Green MD HEMATOLOGY ORDERABLES [facility] [place] [address] * (ABNORMAL) Differential, Automated (12/13/2017 5:16 AM EDT) Neutrophils % 89.7 % [facility] Neutr Abs (ANC) 20.59(H) 1.70 - 6.10 x10(3)/ L [facility] Lymphocytes % 1.9 % [facility] Lymphocytes Abs 0.4(L) 0.9 - 3.2 x10(3)/[facility] Monocytes % 7.4 % [facility] Monocyte Abs 1.7(H) 0.3 - 0.9 x10(3)/[facility] Eosinophils % 0.0 % [facility] Eosinophils Abs 0.0 0.0 - 0.4 x10(3)/[facility] Basophils % 0.2 % [facility] Basophils Abs 0.0 0.0 - 0.1 x10(3)/[facility] Immature Gran % 0.80 % [facility] Comment: Immature granulocytes(IG's)percentage and absolute count will include metamyelocytes, myelocytes, and promyelocytes. Blood smears from CBCs yielding IG's will be scanned manually for concordance. If this scan disagrees with the automated IG or if promyelocytes are noted, a manual differential will be performed. Nova Gran Abs 0.18(H) 0.00 - 0.04 x10(3)/ L [facility] Blood specimen (specimen) 12/13/2017 5:16 AM EDT 12/13/2017 5:25 AM EDT Narrative Resulting Agency Comment Spec In Lab Pallavi Green MD [place] [address] * (ABNORMAL) Hemogram (12/13/2017 5:16 AM EDT) WBC 23.0(H) 4.0 - 9.5 x10(3)/[facility] RBC 2.89(L) 4.00 - 5.21 x10(6)/[facility] Hemoglobin 9.0(L) 11.7 - 15.5 gm/dL [facility] Hematocrit 28.4(L) 35.7 - 45.8 % [facility] MCV 98.3(H) 82.6 - 94.[address] [facility] MCH 31.1 27.1 - 32.[address] [facility] MCHC 31.7 31.7 - 35.0 gm/dL [facility] Platelets 380(H) 145 - 357 x10(3)/[facility] RDWSD 54.8(H) 37.0 - 46.0 [facility] RDWCV 15.1(H) 11.5 - 14.1 % [facility] MPV 8.9 7.6 - 12.9 [facility] nRBC % Auto 0.0 % [facility] nRBC Abs Auto 0.000 0.000 - 0.000 x10(3)/[facility] Blood specimen (specimen) 12/13/2017 5:16 AM EDT 12/13/2017 5:25 AM EDT Narrative Resulting Agency Comment Spec In Lab Pallavi Green MD HEMATOLOGY ORDERABLES [facility] [place] [address] * (ABNORMAL) Magnesium (12/13/2017 5:16 AM EDT) Magnesium 0.63(L) 0.69 - 1.07 mmol/L [facility] Blood specimen (specimen) 12/13/2017 5:16 AM EDT 12/13/2017 5:25 AM EDT Narrative Resulting Agency Comment Spec In Lab Mali Lakhani MD CHEMISTRY ORDERABLES [facility] [place] [address] * (ABNORMAL) Basic Metabolic Panel (non-fasting) (12/13/2017 5:16 AM EDT) Glucose Lvl 184 65 - 199 mg/dL [facility] Comment:Diabetes: >=200 mg/d L plus symptoms BUN 14 8 - 18 mg/dL [facility] Creatinine 1.19 0.70 - 1.20 mg/dL [facility] Sodium 142 135 - 145 mmol/L [facility] Potassium 3.2(L) 3.5 - 5.0 mmol/L [facility] Comment: Please note: ??Patients with WBC >100,000 may have falsely elevated Potassium levels. ??For accurate Potassium quantification in these patients send serum separator tube (gold top) for subsequent determinations. ??Contact the Clinical Chemistry Laboratory if there are any questions. Chloride 103 98 - 107 mmol/L [facility] CO2 20(L) 22 - 31 mmol/L [facility] Anion Gap 19(H) 5 - 15 mmol/L [facility] Calcium 7.8(L) 8.5 - 10.5 mg/dL [facility] Estimated GFR 52(L) >=60 mL/min/1. 73 m?? [facility] Comment: The eGFR was calculated using the CKD-EPI equation. As with all creatinine based estimates of kidney function, eGFR values calculated with the CKD-EPI equation are not accurate in patients with acute kidney failure, extremes of body mass or the acutely ill. [email or web address] eGFR 60 >=60 mL/min/1. 73 m?? [facility] Comment: The eGFR was calculated using the CKD-EPI equation. As with all creatinine based estimates of kidney function, eGFR values calculated with the CKD-EPI equation are not accurate in patients with acute kidney failure, extremes of body mass or the acutely ill. [email or web address]/[email or web address] Blood specimen (specimen) 12/13/2017 5:16 AM EDT 12/13/2017 5:25 AM EDT Narrative Resulting Agency Comment Spec In Lab Mali Lakhani MD CHEMISTRY ORDERABLES [facility] [place] [address] * SCAN DOC: DIRECTOR PROCESS ENGINEERING (12/12/2017 12:00 AM EDT) Anatomical Region Laterality [...] HOURS, First dose (after last modification) on Sun12/16/17 at 1000, Until Discontinued, Administer over 30 [...] 40 mg, Subcutaneous, NIGHTLY, First dose on Sun12/13/17 at 2100, Until Discontinued, Routine Given 12/15/2017 [...] Given 12/13/2017 9:51 PM EDT 100 mg lactated Ringers infusion 75 mL/hr, Intravenous, CONTINUOUS, Starting on Sosa 12/13/17 at 2230, Until 12/16/17 at 1831 New Bag 12/14/2017 11:12 AM EDT 75 mL/hr 75 mL/hr New Bag 12/13/2017 10:30 PM EDT 75 mL/hr 75 mL/hr lactobacillus with pectin 1 capsule 1 capsule, Oral, DAILY, First dose on Sosa 12/13/17 at 0900, Until Discontinued, Routine Given 12/16/2017 8:49 AM EDT 1 capsule Given 12/15/2017 9:26 AM EDT 1 capsule Given 12/14/2017 9:17 AM EDT 1 capsule losartan (COZAAR) tablet 100 mg 100 mg, Oral, DAILY, First dose on Sosa 12/13/17 at 0900, Until Discontinued, Routine Given 12/16/2017 8:4 8 AM EDT 100 mg Given 12/15/2017 9:26 AM EDT 100 mg Given 12/13/2017 9:14 AM EDT 100 mg oxyCODONE (ROXICODONE) immediate release tablet 10-15 mg 10-15 mg, Oral, EVERY 3 HOURS PRN, Starting on [facility] 12/13/17 at 0030, Until 12/16/17 at 1831, Pain, severe pain (7-10), Initial dose 10mg. If pain control not adequate in 60 minutes, give additional 5mg, Routine Given 12/14/2017 3:22 AM EDT 10 mg Given 12/13/2017 8:00 PM EDT 10 mg Given 12/13/2017 2:00 PM EDT 10 mg oxyCODONE (ROXICODONE) immediate release tablet 5-10 [...] 24 hours., Routine 0551 (Given - Provider: Jmail Wallace RN)1418 (Given - Provider: Karley Easton RN)2023 (Given - Provider: Celine German, JENNYFER) 0530 (Given - Provider: Celine German, JENNYFER)142 (Given - Provider: Karley Easton RN)2047 (Given - Provider: Gerald Vanessa RN) 0617 (Given - Provider: Gerald Vanessa RN)1349 (Given - Provider: Andreea Singleton, RN) atorvastatin (LIPITOR) tablet 20 mg 20 mg, Oral, EVERY EVENING, First dose on Sun12/12/17 at 2300, Until Discontinued, Routine 2023 (Given - Provider: Celine German, RN) 2046 (Given - Provider: Gerald Vanessa, RN) ceFAZolin (ANCEF) 1g in dextrose 5% 50mL (CANCELED) 1 g, Intravenous, EVERY 8 HOURS, First dose on Sosa 12/13/17 at 1900, Until Discontinued, Administer over 30 Minutes, Indication for (Active or Suspected): Prophylaxis 0323 (New Bag - Provider: Jamil Wallace RN)0353 (Stopped - Provider: Jamil Wallace RN)1113 (New Bag - Provider: Alyssa Cruz)1143 (Stopped - Provider: Karley Easton RN)1837 (New Bag - Provider: Karley Easton RN)1907 (Stopped - Provider: Gerald Vanessa RN) 0247 (New Bag - Provider: Celine German, JENNYFER)0317 (Stopped - Provider: Celine German, JENNYFER) ceFAZolin (ANCEF) 1g in dextrose 5% 50mL (CANCELED) 1 g, Intravenous, EVERY 12 HOURS, First dose (after last reorder) on 12/15/17 at 1400, Until Discontinued, Administer over 30 Minutes, Renally dosed per P&T approved Renal Dosing Policy, Indication for (Active or Suspected): Prophylaxis 1430 (New Bag - Provider: Karley Easton RN)1500 (Stopped - Provider: Karley Easton, JENNYFER) 0135 (New Bag - Provider: Gerald Vanessa, JENNYFER)0205 (Stopped - Provider: Gerald Vanessa, JENNYFER) ceFAZolin (ANCEF) 1g in dextrose [...] HOURS, First dose (after last modification) on Sun12/13/17 at 1345, Until Discontinued, Routine 0552 (Given - Provider: Jamil Wallace RN)1419 (Given - Provider: Karley Easton, JENNYFER) 0009 (Given - Provider: Celine German RN)0928 (Given - Provider: Karley Easton RN)142 (Given - Provider: Karley Easton RN)204 (Given - Provider: Gerald Vanessa, JENNYFER) 0617 (Given - Provider: Gerald Vanessa RN)134 (Given - Provider: Andreea Singleton RN) dilTIAZem (DILTIAZEM CD) ER capsule 240 mg 240 mg, Oral, DAILY, First dose on Sun12/13/17 at 0900, Until Discontinued, DO NOT CRUSH OR OPEN, Routine 0916 (Given - Provider: Alyssa Cruz - Comment: bp 107/64) 0925 (Given - Provider: Karley Easton RN) 0849 (Given - Provider: Andreea Singleton RN) docusate sodium (COLACE) capsule 100 mg 100 mg, Oral, 2 TIMES DAILY, First dose on Sun12/12/17 at 2315, Until Discontinued, Routine 0918 (Given - Provider: Alyssa Cruz)2024 (Given - Provider: Celine German RN) 0926 (Given - Provider: Karley Easton RN)2046 (Given - Provider: Gerald Vanessa RN) 0849 (Given - Provider: Andreea Singleton RN) enoxaparin (LOVENOX) injection 40 mg 40 mg, Subcutaneous, NIGHTLY, First dose on Sun12/13/17 at 2100, Until Discontinued, Routine 2023 (Given - Provider: Celine German, JENNYFER) 204 (Given - Provider: Gerald Vanessa, JENNYFER) FLUoxetine (PROzac) capsule 40 mg 40 mg, Oral, DAILY, First dose on Sosa 10/25/18 at 0900, Until Discontinued, Routine 0918 (Given - Provider: Alyssa Cruz) 0926 (Given - Provider: Karley Easton RN) 0848 (Given - Provider: Andreea Singleton RN) gabapentin (NEURONTIN) capsule 100 mg 100 mg, Oral, NIGHTLY, First dose on Sun12/12/17 at 2315, Until Discontinued, Routine 2024 (Given - Provider: Celine German RN) 2046 (Given - Provider: Gerald Vanessa RN) lactobacillus with pectin 1 capsule 1 capsule, Oral, DAILY, First dose on Sosa 12/13/17 at 0900, Until Discontinued, Routine 0917 (Given - Provider: Alyssa Cruz) 09 (Given - Provider: Karley Easton RN) 0849 (Given - Provider: Andreea Singleton RN) losartan (COZAAR) tablet 100 mg 100 mg, Oral, DAILY, First dose on Sosa 12/13/17 at 0900, Until Discontinued, Routine 1200 (Not Given - Provider: Karley Easton RN - Reason: Order parameters not met) 09 (Given - Provider: Karley Easton RN) 0848 (Given - Provider: Andreea Singleton RN) potassium chloride (K-DUR/KLOR-CON) extended release tablet 20 mEq 20 mEq, Oral, 3 TIMES DAILY, First dose (after last modification) on Sosa 12/13/17 at 1100, Until Discontinued, 20 mEq tablet may be dissolved in water for administration, Routine 0916 (Given - Provider: Alyssa Cruz - Comment: K+ 3.5)1419 (Given - Provider: Karley Easton RN)2024 (Given - Provider: Celine German RN) 09 (Given - Provider: Karley Easton RN)1429 (Given - Provider: Karley Easton RN)2046 (Given - Provider: Gerald Vanessa RN) 0849 (Given - Provider: Andreea Singleton RN)1556 (Given - Provider: Andreea Singleton RN) sodium chloride 0.9 % flush 5 mL 5 mL, Intravenous, 2 TIMES DAILY, First dose on Sun12/12/17 at 2315, Until Discontinued, Recovery (Recovery-Hospital Unit), Routine 0900 (Not Given - Provider: Alyssa Cruz - Reason: See comment - Comment: ivf running)2023 (Given - Provider: Celine German, JENNYFER) 09 (Given - Provider: Karley Easton, JENNYFER)2047 (Given - Provider: Gerald Vanessa, JENNYFER) 0847 (Given - Provider: Andreea Singleton RN) Continuous Medication Order 12/14/2017 12/15/2017 12/16/2017 [...] additional 5mg, Routine 0322 (Given - Provider: Jamil Wallace RN)1058 (See Alternative - Provider: Alyssa Cruz)1837 (See Alternative - Provider: Karley Easton RN) 0604 (See Alternative - Provider: Celine German, RN)2046 (See Alternative - Provider: Gerald Vanessa, JENNYFER) 0919 (See Alternative - Provider: Andreea Singleton, JENNYFER)1556 (See Alternative - Provider: Andreea Singleton, RN) oxyCODONE (ROXICODONE) immediate release tablet 5-10 [...] within 1 hour to determine follow-up pain score)1836 (Given - Provider: Karley Easton RN) 06 (Given - Provider: Celine German, JENNYFER)2046 (Given - Provider: Gerald Vanessa, JENNYFER) 0919 (Given - Provider: Andreea Singleton, JENNYFER)155 (Given - Provider: Andreea Singleton, JENNYFER) polyethylene glycol (MIRALAX) packet 17 g 17 [...] Routine documented in this encounter Care Teams Alternative Dispute Resolution Mediator Relationship Specialty Start Date End Date Trinh Coates MD [facility] [address] [place] [address] PCP - General 01/11/10 documented as of this encounter
--- OUTSIDE RECORDS SUMMARY | 2023-09-07 11:29 | XMS_ITS | Encounter Summary ---
Author Organization [facility] [place] [address] Care Team Providers Care Supervisor Typesetting Name Role Phone Trinh Coates MD Primary Care Provider [phone] Reason for Visit * Reason Comments Follow Up Surgery s/p implant replacem ent dos 12/12 Encounter Details Date Type Department Care Team (Late st Contact Info) Description 12/25/2017 11:20 AM EST Office [place] [address] Jolene Azevedo APRN [facility] [place] [address] Surgery follow-up Social History Tobacco Use Types [...] Sign Reading Time Taken Comments Blood Pressure 127/89 12/25/2017 12:51 PM EST Pulse 81 12/25/2017 12:51 PM EST Temperature - - Respiratory Rate 12 12/25/2017 12:51 PM EST Oxygen Saturation 97% 12/25/2017 12:51 PM EST Inhaled Oxygen Concentration - - Weight - - Height - - Body Mass Index - - documented in this encounter Patient Instructions * Patient Instructions* Jolene Azevedo APRN - 12/25/2017 11:20 AM EST Follow up in 1 week or sooner if drain ready for removal. Drains will remain. When output is less than 30 mls per day x two days call the clinic to have drains removed Resume Physical Therapy for Lymphedema. May take Ibuprofen and Tylenol. Oxycodone as needed for breakthrough pain. Refill of Oxycodone for pain control. Dispense #7 tablets. Leave drain dressing in place until your next follow-up. Do not lift, push or pull more than 5 pounds. Do not raise your arms above your shoulders. documented in this encounter Progress Notes * Jolene Azevedo APRN - 12/25/2017 11:20 AM EST Plastic Surgery Follow Up Note [...] and closure. Debridement of umbilicus. Deflation of edge grinder volume, This leaves 450 cc in the left tissue edge grinder and 500 cc on the right side Date of surgery: 04/26/17 Procedure(s): Bilateral breast reconstruction with attempted SALVADOR flaps, eventual tissue edge grinder placement with [place] [employer] 600 cc expanders placed bilaterally and filled with 450 cc of methyleneblue impregnated saline.) Complications: right parietal and visceral pleural tear, arterial flap failure bilaterally Chemotherapy: yes - last dose 11/15 Radiation: yes. On left side. Consult next week. HPI: Pt reports that she is doing ok. She is very sore. She is unable to lift her arms and certain movements cause her discomfort. She reports that she has jabbing pain located within her back. She reports hypertension in the hospital. She has an upcoming appointment with her PCP regarding this. She has [address] with output of 40-60 ml per day per drain. She does not have visiting nursesat this time. She and her has concerns with the left lower back area. She will be seeing Dr. Rivera. She is asking for a refill of her Oxycodone. She has been taking tylenol for her discomfort as well. Examination: Patient is alert, conversant, comfortable, ambulating Breasts are soft and symmetric. Left side with more edema than right. Breast incisions intact with Prolene sutures in place. Back incisions intact. Drains in place x 4. Serous fluid in bulbs. Drain sites free of signs of infection. Impression: Wendy Sandoval is a 52 y.o. female who was seen today for follow- up after the above procedure. Healing very well. No signs or concerns of infection. Drains remain. Plan: Follow up in 1 week or sooner if drain ready for removal. Drains will remain. When output is less than 30 mls per day x two days call the clinic to have drains removed Resume Physical Therapy for Lymphedema. May take Ibuprofen and Tylenol. Oxycodone as needed for breakthrough pain. Refill of Oxycodone for pain control. Dispense #7 tablets. Leave drain dressing in place until your next follow-up. Do not lift, push or pull more than 5 pounds. Do not raise your arms above your shoulders. I, KAM SMITH, have performed the documentation for this encounter in the presence of and acting as a scribe for JOLENE AZEVEDO APRN. I performed the services which were documented by the scribe, and I agree with the accuracy of the documentation in this encounter. JOLENE AZEVEDO APRN ' documented in this encounter Plan of Treatment Upcoming Encounters Date Type Department Care Team (Late st Contact Info) Description 01/22/2024 10:30 AM EST Appointment Mammography/[place] [phone] Ladi Mendosa MD [facility] HEMATOLOGY/[place] [address] 01/30/2024 11:30 AM EST Office Visit Dermatology at [address] [place] [address] Nilda Luis MD [facility] [address] [place] [address] 02/15/2024 9:30 AM [place] [phone] [place] [address] documented as of this encounter Visit Diagnoses Diagnosis Surgery follow-up Follow-up examination, following unspecified surgery documented in this encounter Care Teams Supervisor Typesetting Relationship Specialty Start Date End Date Trnih Coates MD [address] [place] [address] PCP - General 01/11/10 documented as of this encounter
--- OUTSIDE RECORDS SUMMARY | 2023-09-07 11:29 | XMS_ITS | Encounter Summary ---
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 Side effects that patient is experiencing: Skin reaction. Assessment: Raised reddened reaction noted in treatment field, area of dry desquamation in axilla. Itching not relieved with jeans cream. She did purchase and start using hydrocortisone 1 % otc yesterday which has been helpful for the itching but effect does not last long. Does awaken her at night.Axilla discomfort 4/10 at times with movement. Anticipatory guidance/ interventions: Dr. Choi updated. She advised that patient can use benadrylotc at hs prn. She also ordered silvadene to be applied at least daily and prn 2-4 Gm/day. Dispense: 400gm, Refill:0. I instructed patient regarding benadryl prn and new silvadene prescription. She verbalized good understanding and requested that silvadene prescription be sent to [facility]. Plan: Weekly otv with Dr. Choi tomorrow. Nursing otv daily prn. documented in this encounter Plan of Treatment Upcoming Encounters Date Type Department Care Team (Late st Contact Info) Description 01/22/2024 10:30 AM EST Appointment Mammography/DXA at [place] [phone] Ladi Mendosa MD [facility] DR HEMATOLOGY/[place] [address] 01/30/2024 11:30 AM EST Office Visit Dermatology at [address] [phone] Nilda Luis MD 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
--- OUTSIDE RECORDS SUMMARY | 2023-09-07 11:29 | XMS_ITS | Encounter Summary ---
Author Organization [facility] Address [facility] [place] [address] Care Team Providers Care Manager Heavy Equipment Name Role Phone Trinh Coates MD Primary Care Provider [phone] Reason for Visit * Reason Comments On Treatment Visit Encounter Details Date Type Department Care Team (Late st Contact Info) Description 03/05/2018 10:00 AM EST Office Visit Radiation Oncology at [address] [phone] Puneet Choi MD [facility] [place] [address] Malignant neoplasm of upper-outer quadrant [...] Sign Reading Time Taken Comments Blood Pressure 145/101 03/05/2018 10:58 AM EST Pulse 86 03/05/2018 10:58 AM EST Temperature 37.2 ??C (99 ??F) 03/05/2018 10:58 AM EST Respiratory Rate 16 03/05/2018 10:58 AM EST Oxygen Saturation 100% 03/05/2018 10:58 AM EST Inhaled Oxygen Concentration - - Weight 80.3 kg (177 lb) 03/05/2018 10:58 AM EST Height - - Body Mass Index 34.57 02/13/2018 11:14 AM EST documented in this encounter Patient Instructions * Patient Instructions* Puneet Choi MD - 03/05/2018 10:00 AM EST Your last radiotherapy will be on M., 03/11/18. Please continue the silvadene &/or skintegrity &/or aquaphor ointment. Put the saline in frig to cool, then soak gauze in it & apply to irradiated skin for cooling effect. Please do not use deodorant other than Larry's/Crystal/George's/cornstarch/baking soda on your left underarm. Please do not use a straight/regular razor on your left underarm. An electric razor is ok. Please do not expose the irradiated area to sun. Please do not expose irradiated area to chlorinated water. Saltwater or freshwater is ok. Please do not expose irradiated area to hot tub water. Hot bath/shower ok. We will mail you a letter with an appointment for followup with me in 1 month. documented in this encounter Progress Notes * Puneet Choi MD - 03/05/2018 10:00 AM EST Images from the original note were not included. 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 Adjuvant chemo then given, followed by radiographer angiogram exchange for implants. CURRENT TREATMENT DOSE: 43.2 Gy L supraclav, L axilla & L reconstructed breast/chest wall ANTICIPATED TOTAL DOSE: 50.4 Gy L supraclav, L axilla & L reconstructed breast/chest wall Current # of xrt received: 19 L supraclav, L axilla & L reconstructed breast/chest wall Anticipated total # of xrt txs: 24 L supraclav, L axilla & L reconstructed breast Evaluation of port verification films: Approved. For details, see electronic film record in [employer]. Changes in Medical Condition: Silvadene decreases itchiness & irritation w/in irrad'd area a little. 1% htc does not help to decrease the itchiness. Ander's cream irritated her skin. She is keeping Dr. Coates informed of her bp readings from this clinic. She asks when to start anne. Pain?: No. Your Medications Accurate as of 03/05/18 11:15 AM. If you have any questions, ask [...] care provider to review them with you. STOPPED Medications oxyCODONE 5 mg Tab Commonly known as: ROXICODONE Stopped by: PUNEET CHOI MD Physical Exam: BP (!) 145/101 Pulse 86 Temp 37.2 ??C (99 ??F) (Oral) Resp 16 Wt 80.3 kg (177 lb) SpO2 100% BMI 34.57 kg/m?? A&Ox3, NAD. Folliculitis UIQ L breast & on L post shoulder. Multiple (4) 0.5-1.0 cm erythematous round lesions on L lateral chest wall in mid axillary line; the most inferior 2 lesions being @ drain site scars & the most inferior of these 2 is the largest of the 4 lesions & is crusted. Mild to moderate erythema of irrad'd area w/minimal dry desquamation. L arm & hand in ritika wrap. Imagin01/16/18 Dx'ic Rad Interp CTsim: No acute infxn/met dz. No complication of recent mastectomies/lymphadenectomies w/B silicone breast implant placement. Performance Status: KPS 90% Response to xrt: As expected. Irradiation Related Symptoms: Skin rxn. Treatment for Symptom Control: Given aquaphor ointment, skintegrity, mepilex- lite, radiagel sheets,skintegrity gauze dressing, bottle of saline, gauze pads. Advised to put saline in frig to cool & then apply saline soaked gauze to irrad'd skin for cooling effect. Could try benadryl cream to irrad'd area for itchiness. Could take benadryl tab/cap q HS for itchiness. Silvadene. Pain Management: Not needed. Recommendation on Continuing Course of xrt: Cont. Follow erythematous lesions on lateral L chest wall closely. Completes xrt 03/11/18. Care of irrad'd skin discussed. Advised that Dr. Barnett's rx indicates start anne 2-3 wks after xrt completion. documented in this encounter Plan of Treatment Upcoming Encounters Date Type Department Care Team (Late st Contact Info) Description 01/22/2024 10:30 AM EST Appointment Mammography/[place] [phone] Ladi Mendosa MD [facility] HEMATOLOGY/[place] [address] 01/30/2024 11:30 AM EST Office Visit Dermatology at [address] [phone] Nilda Luis MD [facility] DR [place] [address] 02/15/2024 9:30 AM EST [place] [phone] Joanna Watts MD [place], [place] [phone] documented as of this encounter Visit Diagnoses Diagnosis Malignant neoplasm of upper-outer quadrant of left female breast, unspecified estrogen receptor status documented in this encounter Care Teams Manager Heavy Equipment Relationship Specialty Start Date End Date Trinh Coates MD [address] [place] [address] PCP - General 01/11/10 documented as of this encounter
--- OUTSIDE RECORDS SUMMARY | 2023-09-07 11:29 | XMS_ITS | Encounter Summary ---
Author Organization [facility] [address] Care Team Providers Care Supervisor Transcribing Operators Name Role Phone Trinh Coates MD Primary Care Provider [phone] Reason for Referral * Diagnostic Test (Routine) - Closed Specialty Diagnoses / Procedures Referred By Contac t Referred To Contact Radiology Diagnoses Malignant neoplasm of upper-outer quadrant of left breast in female, estrogen receptor positive Procedures IR Mediport Removal Josias Barnett MD [facility] DR HEMATOLOGY/[place] [address] [facility] [place] [address] Referral ID Status Reason Start Date Expiration Date V isits Requested Visits Authorized [id number] Closed Specialty Service Requested 01/07/2018 01/07/2019 1 1 Reason for Visit * Diagnostic Test (Routine) - Closed Specialty Diagnoses / Procedures Referred By Contac t Referred To Contact Radiology Diagnoses Malignant neoplasm of upper-outer quadrant of left breast in female, estrogen receptor positive Procedures IR Mediport Removal Josias Barnett MD [facility] HEMATOLOGY/[place] [address] [facility] [place] [address] Referral ID Status Reason Start Date Expiration Date V isits Requested Visits Authorized [id number] Closed Specialty Service Requested 01/07/2018 01/07/2019 1 1 Encounter Details Date Type Department Care Team (Latest Contact Info) Description 01/25/2018 1:00 PM EST - 01/25/2018 11:59 PM EST Hospital En[place] [address] Josias Barnett MD [facility] HEMATOLOGY/[place] [address] Malignant neoplasm of upper-outer quadrant of left [...] Sign Reading Time Taken Comments Blood Pressure 160/99 01/25/2018 3:30 PM EST Pulse 91 01/25/2018 2:45 PM EST Temperature 36.2 ??C (97.2 ??F) 01/25/2018 2:56 PM ES T Respiratory Rate 20 01/25/2018 3:15 PM EST Oxygen Saturation 96% 01/25/2018 3:30 PM EST Inhaled Oxygen Concentration - - Weight - - Height - - Body Mass Index - - documented in this encounter Discharge Instructions * Discharge Instructions* Tony Agosto RN - 01/25/2018 2:[address] [facility] Vascular and Interventional Radiology Discharge Instructions for your Chest Port Removal Activity: ??? Relax for the next 24 hours Diet: ??? Drink plenty of fluids. ??? Resume your regular diet Bandage: There is a sterile dressing consisting of small gauze with a clear dressing (Tegaderm or IV 3000). This dressing should be left in place for 48 hours. If the clear dressing becomes loose youshould place tape over the edges to secure it in place. No tub baths, swimming or whirlpools for 1 week. No showering for 48 hours. Note: If you have steri-strips beneath your dressing, simply allow them to fall off. Do not peel them off. There may be Vidor-tyson (skin glue) also, allow this to flake off. Do not pick this off. Bathing: Do not take a shower until 48 hours after your port is removed; after this time you may shower with the dressing in place, then remove it and pat your skin dry. After 48 hours, we recommend that you cover the area with THE AQUA GUARD PROVIDED for 1 week while showering, facing away from the shower stream. You may use a bandaid to cover the site after the 48 hours are up if there is any drainage. No tub baths, whirlpools or swimming for one week following port removal. Pain: Apply ice bag to site (s) at 30 minute intervals (30 minutes on and 30 minutes off) for 24 hours?? . May use as needed for pain and/or bruising after 24 hours. When to call your healthcare provider: ??? If you notice bleeding from the incision on your chest, you should lie flat and apply firm pressure over the site for 10-15 minutes, keeping the site covered and call your doctor. If you are still bleeding after 10-15 minutes, reapply pressure, and have someone drive you to the nearest Emergency Department, or call 911. ??? If you develop pain, redness, drainage or swelling at or around chest incision site. ??? If you develop a fever equal to or greater than 101 degrees Fahrenheit. When to call the Interventional Radiology Department: Please call with any questions or concerns. If it is during regular office hours, please call [phone]. If it is after regular office hours, or on weekends or holidays, please call [phone] and ask to speak to the Artist Consultant station usher for Interventional Radiology. You have received medication [...] as needed for Pain (moderate pain (4-6)). 8 tablet 12/25/2017 03/05/2018 tamoxifen (NOLVADEX) 20 mg Tablet Take 1 [...] as of this encounter Progress Notes * Scooby Muñoz APRN - 01/25/2018 1:16 PM EST ASA: 2: Patient with mild systemic disease Mallampati: II: tonsillar pillars are blocked by the tongue Cardiovascular: Rhythm: Regular Rate: Normal Pulmonary: Breath sounds clear to auscultation Consent: The sedation plan, its benefits and risks, and alternatives were discussed with the patient. The planned procedure, its benefits and risks, and alternatives were discussed with the patient. The patient consented to the procedure. Sedation Plan: moderate (conscious sedation) * Tony Agosto RN - 01/22/2018 10:09 AM EST [facility] Name: WENDY SANDOVAL Date of : 1965 AGE 52 y.o. [address]: [address] [place] [phone] (home) [phone] (work) Mobile: Telephone Information: Referring Provider: Josias Barnett REASON FOR VISIT: Date/time of procedure: Pertinent info from Pre-call (if any): Labs ordered: Med's stopped: Question Answer Comment Where will study be performed? [facility] Reason for exam and clinical history: completed iv chemo Exam/Procedure requested: remove mediport Is the patient on anticoagulant / anitplatelet therapy ? No Is the patient ? No Allergies Allergen Reactions ??? Zoloft [Sertraline] PSORIASIS FLARE Pertinent PMH: Patient Active Problem List Diagnosis Code ??? Hypertension I10 ??? Depression F32.9 ??? Obstructive sleep apnea (adult) (pediatric) G47.33 ??? OA (osteoarthritis) M19.90 ??? Overweight(278.02) E66.3 ??? Hyperparathyroidism E21.3 ??? Malignant neoplasm of upper-outer quadrant of left breast in female, estrogen receptor akzyshjiG36.412, Z17.0 ??? S/P breast reconstruction, bilateral Z98.890 [...] IR Drain Check/Change/Remove 11/20/2017 Marcos Dey MD [facility] INTERVENTIONL RAD ??? PRG EMG, LARYNX N/A 11/02/2015 FACIAL NERVE MONITORING, SETUP LARYNGEAL performed by Valentina Lucas MD at [facility] MAIN OR ??? PRO BREAST RECONSTRUC W FREE FLAP Bilateral 04/26/2017 @BREAST RECONSTRUCTION W/ FREE FLAP, SUSAN (WRVU 42.58) performed by Andre Gimenez MD at [facility] [place] ??? PRO BREAST RECONSTRUC W FREE FLAP, W/O IMPLANT Bilateral 12/12/2017 @BREAST RECONSTRUCTION W/ LAT DORSI FLAP,W/O IMPLANT, SUSAN (WRVU 23.36) performed by Andre Gimenez MD at [facility] MAIN OR ??? PRO BREAST RECONSTRUC W TISS EXPANDR Bilateral 04/26/2017 BREAST RECONSTRUCTION, IMMEDIATE OR DELAYED, W/ TISSUE JUTE BAG CUTTING MACHINE OPERATOR, INCLUDING SUBSEQUENT EXPANSION (WRVU 18.5) [...] [facility] OR ??? PRO REPLACE TISSUE JUTE BAG CUTTING MACHINE OPERATOR Bilateral 12/12/2017 TISSUE JUTE BAG CUTTING MACHINE OPERATOR REPLACEMENT, WITH PERMANENT PROSTHESIS, SUSAN [...] R drain removed. Fentanyl 50 mcg IV? [id number] Left breast aspiration/ 30 ml Fentanyl 100 [...] 150 mcg IV Versed 2 mg IV ? Laboratory Results: Lab Results Component Value Date INR 1.1 11/30/2017 Lab Results Component Value Date CREATININE 1.35 (H) 12/15/2017 Lab Results Component Value Date K 3.8 12/15/2017 Lab Results Component Value Date PLATELET 339 12/15/2017 Medications: Prior to Admission medications Medication Sig Start Date End Date Taking? Authorizing Provider emollient base (CREAM BASE TOP) Apply topically. Jeans Cream. Apply to area of radiation twice a day but no less than 2 hours before a treatment. Emily Choi MD oxyCODONE (ROXICODONE) 5 mg Tablet Take 1 tablet by mouth every 6 hours as needed for Pain (moderate pain (4-6)). Patient not taking: Reported on 01/16/2018 12/25/17 Jolene Azevedo APRN gabapentin (NEURONTIN) 100 mg Capsule Take 1 capsule by mouth nightly as needed. If no benefit after a week, can increase to 200mg, then 300mg at night if not too sedating. 12/05/17 12/05/18 Josias Barnett MD tamoxifen (NOLVADEX) 20 mg Tablet Take 1 tablet by mouth daily. Start 2-3 weeks after radiation therapy is completed. Patient not taking: Reported on 01/02/2018 12/05/17 Josias Barnett MD dexamethasone (DECADRON) 4 mg Tablet Take 1 tablet by mouth 2 times daily (with meals). Patient not taking: Reported on 01/02/2018 10/19/17 Sally Ren APRN losartan (COZAAR) 100 mg Tablet take 1 tablet by mouth once daily 10/09/17 PROVIDER, HISTORICAL potassium chloride 20 mEq Tablet Sustained Release take 3 tablets by mouth daily 09/17/17 PROVIDER, HISTORICAL omeprazole (PRILOSEC) 40 mg Capsule, Delayed Release(E.C.) Take 1 capsule by mouth daily. 08/23/17 08/23/18 Gustavo Mota MD cholecalciferol, Vitamin D3, (VITAMIN D-3) 5,000 unit Tablet Take by mouth. PROVIDER, HISTORICAL LORazepam (ATIVAN) 0.5 mg Tablet Take 1 tablet by mouth every 6 hours as needed for Anxiety. Patient not taking: Reported on 01/16/2018 06/01/17 Sally Ren APRN atorvastatin (LIPITOR) 20 mg Tablet Take 1 tablet by mouth daily. 03/02/17 PROVIDER, HISTORICAL triamcinolone (ARISTOCORT) 0.5 % Cream Apply topically 3 times daily. PROVIDER, HISTORICAL acetaminophen (TYLENOL) 325 mg Tablet [...] documented in this encounter H&P Notes * Scooby Muñoz APRN - 01/24/2018 9:40 AM EST Images from the original note were not included. INTERVENTIONAL RADIOLOGY FOCUSED H&P and PRE-PROCEDURE NOTE: PCP: Trinh Coates MD Referring Provider: Josias Barnett Planned Procedure: Planned procedure: Mediport removal Procedure Indication: Chemotherapy complete, Mediport no longer needed Order Questions Answers Where will study be performed? [facility] [120] Reason for exam and clinical history: completed iv chemo Exam/Procedure requested: remove mediport Is the patient on anticoagulant / anitplatelet therapy ? No Is the patient ? No Presenting Diagnosis/ Complaint: Wendy Sand[place] is a 52 y.o. female with a PMHx significant for HTN, depression, JACQUELYN and breast cancer. IR has been consulted for removal of R IJ Mediport placed inIR on 07/03/17. Past Medical/Surgical History: Patient Active Problem List Diagnosis Code ??? Hypertension I10 ??? Depression F32.9 ??? Obstructive sleep apnea (adult) (pediatric) G47.33 ??? OA (osteoarthritis) M19.90 ??? Overweight(278.02) E66.3 ??? Hyperparathyroidism E21.3 ??? Malignant neoplasm of upper-outer quadrant of left breast in female, estrogen receptor ffnwdrlzL00.412, Z17.0 ??? S/P breast reconstruction, bilateral Z98.890 ??? Surgery follow-up Z09 ??? Abdominal wound dehiscence T81.30XA ??? Hypokalemia E87.6 ??? Bacterial conjunctivitis H10.9 ??? Seroma of breast N64.89 ??? History of breast cancer Z85.3 Past Medical History: Diagnosis Date ??? Fibrocystic [...] IR Drain Check/Change/Remove 11/20/2017 Marcos Dey MD [facility] INTERVENTIONL RAD ??? PRG EMG, LARYNX N/A 11/02/2015 FACIAL NERVE MONITORING, SETUP LARYNGEAL performed by Valentina Lucas MD at [facility] MAIN OR ??? PRO BREAST RECONSTRUC W [...] BREAST RECONSTRUCTION, IMMEDIATE OR DELAYED, W/ TISSUE JUTE BAG CUTTING MACHINE OPERATOR, INCLUDING SUBSEQUENT EXPANSION (WRVU 18.5) performed by Andre Gimenez MD at [facility] MAIN OR ? ? PRO DEBRIDEMENT SUBCUTANEOUS [...] 9.15) performed by Andre Gimenez MD at [facility] MAIN OR ??? PRO MASTECTOMY, SIMPLE, COMPLETE [...] [facility]AB[facility]ATION [facility] OR ??? PRO REPLACE TISSUE JUTE BAG CUTTING MACHINE OPERATOR Bilateral 12/12/2017 TISSUE JUTE BAG CUTTING MACHINE OPERATOR REPLACEMENT, WITH PERMANENT PROSTHESIS, SUSAN [...] SURGERY Left ??? UMBILICAL HERNIA REPAIR Medications: Current Outpatient Medications on File Prior to Encounter Medication Sig Dispense Refill ??? emollient base (CREAM BASE TOP) Apply topically. Jeans Cream. Apply to area of radiation twice a day but no less than 2 hours before a treatment. ??? oxyCODONE (ROXICODONE) 5 mg Tablet Take 1 tablet by mouth every 6 hours as needed for Pain (moderate pain (4-6)). (Patient not taking: Reported on 01/16/2018) 8 tablet 0 ??? gabapentin (NEURONTIN) 100 mg Capsule Take 1 capsule by mouth nightly as needed. If no benefit after a week, can increase to 200mg, then 300mg at night if not too sedating. 60 capsule 2 ??? tamoxifen (NOLVADEX) 20 mg Tablet Take 1 tablet by mouth daily. Start 2-3 weeks after radiationtherapy is completed. (Patient not taking: Reported on 01/02/2018) 90 tablet 3 ??? dexamethasone (DECADRON) 4 mg Tablet Take 1 tablet by mouth 2 times daily (with meals). (Patient not taking: Reported on 01/02/2018) 20 tablet 0 ??? losartan (COZAAR) 100 mg Tablet take 1 tablet by mouth once daily 0 ??? potassium chloride 20 mEq Tablet Sustained Release take 3 tablets by mouth daily 0 ??? omeprazole (PRILOSEC) 40 mg Capsule, Delayed Release(E.C.) Take 1 capsule by mouth daily. 90 capsule 11 ??? cholecalciferol, Vitamin D3, (VITAMIN D-3) 5,000 unit Tablet Take by mouth. ??? LORazepam (ATIVAN) 0.5 mg Tablet Take 1 tablet by mouth every 6 hours as needed for Anxiety. (Patient not taking: Reported on 01/16/2018) 30 tablet 0 ??? atorvastatin (LIPITOR) 20 mg Tablet Take 1 tablet by mouth daily. 0 ??? triamcinolone (ARISTOCORT) 0.5 % Cream Apply topically 3 times daily. ??? acetaminophen (TYLENOL) 325 mg Tablet [...] facility-administered medications on file prior to encounter. Allergies: Zoloft [sertraline] Social History and Habits: [...] Other 64 ??? Ovarian Cancer Other 57 Pertinent ROS: as per HPI Labs: Lab Results Component Value Date WBC 13.1 (H) 12/15/2017 ANC 12.19 (H) 10/04/2017 HCT 24.6 (L) 12/15/2017 PLATELET 339 12/15/2017 INR 1.1 11/30/2017 BUN 24 (H) 12/15/2017 CREATININE 1.35 (H) 12/15/2017 ALKPHOS 77 12/15/2017 AST 15 12/15/2017 ALBUMIN 2.6 (L) 12/15/2017 BILITOT <0.2 (L) 12/15/2017 ALT <5 12/15/2017 PROT 5.5 (L) 12/15/2017 Imaging: IR Mediport placement 07/03/17 Physical Exam: Pending (to be performed in angio the day of procedure) ASA: Pending (to be assessed in angio the day of procedure) Mallampati Class: Pending (to be assessed in angio the day of procedure) Assessment: 52 y.o. female who presents to IR for Mediport removal. Plan: Plan Planned procedure: Mediport removal Labs to be performed day of procedure: No labs Prophylactic antibiotic : Cipro Additional medications for procedure: Lidocaine(Lidocaine with epinephrine ) Planned access site: R chest wall Position: Supine Consent: Pending 01/24/2018 documented in this encounter Nursing Notes * Tony Agosto, RN - 01/25/2018 2:13 PM EST To procedure room 2 via stretcher. Remains on stretcher All monitors, O2, safety strap in place. Med's per protocol. documented in this encounter Plan of Treatment Upcoming Encounters Date Type Department Care Team (Late st Contact Info) Description 01/22/2024 10:30 AM EST Appointment Mammography/[place] [phone] Ladi Mendosa MD [facility] HEMATOLOGY/[place] [address] 01/30/2024 11:30 AM EST Office Visit Dermatology at [address] [phone] Nilda Luis MD [facility] DR [place] [address] 02/15/2024 9:30 AM EST Appointment [place] [phone] [place] [address] documented as of this encounter Procedures Procedure Name Priority Date/Time Associated Diagnosis Comments IR MEDIPORT REMOVAL Routine 01/25/2018 2 :49 PM EST Malignant neoplasm of upper-outer quadrant of left breast in female, estrogen receptor positive documented in this encounter Results * IR Mediport Removal [...] Provider: ??Scooby Muñoz APRN Attending: Dr. Dey Josias Barnett MD IMG IR ORDERABLES documented in this encounter Visit Diagnoses Diagnosis Malignant neoplasm of upper-outer quadrant of left breast in female, estrogen receptor positive documented in this encounter Administered Medications Inactive Administered Medications - up to 3 most recent administrations Medication Order MAR Action Action Date Dose Rate Site fentaNYL 50 mcg/mL multi-dose injection 25-50 mcg, Intravenous, EVERY 5 MIN PRN, Starting on Sun01/25/18 at 1306, Until Sun01/25/18 at 1450, Pain, per unit protocol, - Start dose [...] and verbal order., Angio/IR (Intra-Procedure), Routine Given 01/25/2018 2:33 PM EST 50 mcg Given 01/25/2018 2:15 PM EST 50 mcg Given 01/25/2018 2:08 PM EST 50 mcg lidocaine (XYLOCAINE) 10 mg/mL (1 %) injection 10 mg 10 mg, Subcutaneous, ONCE, 1 dose, On Sun01/25/18 at 1330, For use in Interventional Radiology (IR) only for procedure with direct provider supervision and verbal order., Angio/IR (Intra-Procedure), Routine Given 01/25/2018 2:10 PM EST 10 mg lidocaine-EPINEPHrine 2 %-1:100,000 injection 1 dose, Starting on Sun01/25/18 at 1402, Until Sun01/25/18 at 1415, TONY AGOSTO: cabinet override Given 01/25/2018 2:15 PM EST 10 mLs midazolam (PF) (VERSED) multi-dose injection 0.5-1 mg 0.5-1 mg, Intravenous, EVERY 3 MIN PRN, Starting on Sun01/25/18 at 1306, Until Sun01/25/18 at 1450, Sleep, - Start dose; 1 mg (Reduce [...] and verbal order., Angio/IR (Intra-Procedure), Routine Given 01/25/2018 2:14 PM EST 1 mg Given 01/25/2018 2:05 PM EST 1 mg documented in this encounter Care Teams Supervisor Transcribing Operators Relationship Specialty Start Date End Date Trinh Coates MD [address] [place] [address] PCP - General 01/11/10 documented as of this encounter
--- OUTSIDE RECORDS SUMMARY | 2023-09-07 11:29 | XMS_ITS | Encounter Summary ---
Author Organization [facility] Address [facility] [place] [address] Care Team Providers Care Tight Rope Walker Name Role Phone Trinh Coates MD Primary Care Provider [phone] Reason for Visit * Consultation (Routine) - Duplicate Referral Specialty Diagnoses / Procedures Referred By Diamante marin Referred To Contact Radiation Oncology Diagnoses Malignant neoplasm of upper-outer quadrant of left female breast, unspecified estrogen receptor status Procedures Simulation for Radiation Therapy Planning Emily Choi MD [facility] [place] [address] [facility] Rad Onc Office [address] [place] [phone] Referral ID Status Reason Start Date Expiration Date Visits Requested Visits Authorized [id number] Duplicate Referral Consult, Test & Treat 8 01/01/2019 1 1 Encounter Details Date Type Department Care Team (Latest Contact Info) Description 01/16/2018 10:00 AM EST Ancillary Appointment Radiation Oncology at [address] [address] Emily Choi MD [facility] [place] [address] Malignant neoplasm of upper-outer quadrant of left [...] Progress Notes * Emily Choi MD - 01/16/2018 10:00 AM EST Here for sim. 11/15/17 chemo completed. 12/12/17 B jack machine operator replacement w/implants. 2 drains placed each side. 12/25/17 fu w/Rashaad Azevedo APRN Plastics; resume PT for lymphedema. 01/02/18 fu w/Rashaad Azevedo APRN Plastics; drains removed; rtc after xrt. Sim: Custom vac bag & breast bd immobilization; 5 flat bbs on L mastectomy, 9 flat bbs on L flap recon scar & a flat bb @ each L drain site scar (2 drain site scars); CT through neck & chest showed heart to approach chest wall & so 2nd CT was then done w/deep inspiration breath hold(DIBH); 3D xrt planned. She tolerated sim well, w/o problem. Tx Plan: 3D xrt. Start xrt 01/28/18. documented in this encounter Plan of Treatment Upcoming Encounters Date Type Department Care Team (Late st Contact Info) Description 01/22/2024 10:30 AM EST Appointment Mammography/[place] [address] Ladi Mendosa MD [facility] HEMATOLOGY/[place] [address] 01/30/2024 11:30 AM EST Office Visit Dermatology at [facility] [address] [place] [phone] Nilda Luis MD [facility] [address] [place] [address] 02/15/2024 9:30 AM EST [place] [address] [place] [address] documented as of this encounter Visit Diagnoses Diagnosis Malignant neoplasm of upper-outer quadrant of left female breast, unspecified estrogen receptor status documented in this encounter Care Teams Tight Rope Walker Relationship Specialty Start Date End Date Trinh Coates MD [facility] [address] [place] [address] PCP - General 01/11/10 documented as of this encounter
--- OUTSIDE RECORDS SUMMARY | 2023-09-07 11:29 | XMS_ITS | Encounter Summary ---
Author Organization [facility] Address [facility] Margarita [facility] [place] [address] Care Team Providers Care Supervisor Properties Name Role Phone Trinh Coates MD Primary Care Provider [phone] Encounter Details Date Type Department Care Team (Late st Contact Info) Description 01/08/2018 Telephone [place]ematology [place] [phone] Angela Martinez, JENNYFER Social History Tobacco Use Types Packs/Day Years [...] 01/22/2024 10:30 AM EST Appointment Mammography[place] [phone] Ladi Mendosa MD [facility] HEMATOLOGY/[place] [address] 01/30/2024 11:30 AM EST Office Visit Dermatology at [facility] [address] [place] [address] Nilda Luis MD [facility] DR LIDIA AME[facility]CU[facility]-[place] [address] 02/15/2024 9:30 AM EST [place] [phone] [place] [address] documented as of this encounter Visit Diagnoses Diagnosis Malignant neoplasm of upper-outer quadrant of left breast in female, estrogen receptor positive S/P breast reconstruction, bilateral Breast replaced by other means documented in this encounter Care Teams Supervisor Properties Relationship Specialty Start Date End Date Trinh Coates MD [facility] [place] [address] [place] [address] PCP - General 01/11/10 documented as of this encounter
--- OUTSIDE RECORDS SUMMARY | 2023-09-07 11:29 | XMS_ITS | Encounter Summary ---
Author Organization [facility] Address [facility] [place] [address] Care Team Providers Care Direct Mail Manager Name Role Phone Trinh Coates MD Primary Care Provider [phone] Reason for Visit * Auth/Cert Specialty Diagnoses / Procedures Referred By Diamante t Referred To Contact Diagnoses Malignant neoplasm of upper-outer quadrant of left female breast Estrogen receptor positive status (ER+) hx of breast cancer Procedures PRO REVISE BREAST RECONSTRUCTION PRO REPLACE TISSUE SHAKE OUT WORKER PRO SURGERY OF BREAST CAPSULE REVISION OFRECONSTRUCTED BREAST, SUSAN (WRVU 10.41) TISSUE SHAKE OUT WORKER REPLACEMENT, WITH PERMANENT PROSTHESIS, SUSAN (WRVU 8.01) BREAST, CAPSULOTOMY, OPEN PERIPROSTHETIC -SUSAN (WRVU 9.17) Referral ID Status Reason Start Date Expiration Date Visits Re quested Visits Authorized [id number] 1 1 Encounter Details Date Type Department Care Team (Late st Contact Info) Description 12/12/2017 3:54 PM EDT Anesthesia Event [place] [address] Carmen Sena MD [facility] [place] [address] Dave Rubi MD [facility] [place] [address] Anesthesia Record Procedure Summary Procedure Name Responsible Anesthesiologist Anesthesia Start Time Anesthesia Stop Time REVISION OFRECONSTRUCTED BREAST, SUSAN (WRVU 11.17) (Bilateral: Trunk) Carmen Sena MD 12/12/17 1554 12/12/17 2043 Events Date Time Event Comment 12/12/2017 1452 1554 AN Verify 1554 Start 1554 An Start Data 1601 An Induction 1606 An Intubation 1616 Anesthesia Ready 1650 Break/Relief In Ermias Correia alex, ELECTROCARDIOGRAM TECHNICIAN 1824 Handoff Intra-procedure anesthesia care was transferred after review of the patient's history, current anesthetic/surgical status and plan, according to the ANES Provider Handoff Checklist. 1845 Quick Note Pt. To supine p ostion 2026 Extubation/LMA Out 2041 an stop data 2042 Recovery or ICU Handoff Adriana ent care was transferred to the destination unit staff after review of the patient's medical history, current anesthetic/surgical status and plan, according to the Provider Handoff Checklist. 2042 Stop Meds Name Total Midazolam 2 mg fentaNYL 100 mcg IV Lidocaine 60 mg Propofol 200 mg Rocuronium 50 mg PHENYLephrine 80 mcg ePHEDrine 15 mg Dexamethasone 8 mg Dexmedetomidine 16 mcg Propofol INF 910.28 mg ceFAZolin (ANCEF) 2g in dextrose 5% 100 mL 4 g HYDROmorphone 1 mg Lactated Ringers 2,000 mL Sodium Chloride 0.9% 1,300 mL * Agents Name O2 Air N2O Sevoflurane (et) * Blood No blood administrations on file. Lines, Drains, and Airways Type Details Placement Removal (RETIRED) Implanted Port - Single Lumen (non-apheresis) 07/03/17; 1313; infraclavicular fossa, right; pressure injectable catheter; Norberto Muñoz APRN; 6 F; 01/25/18; 1422 07/03/17 1313 by Cory Nick RN 01/25/18 1422 by Tony Colon RN Incision 09/06/17; 1330; [address]; Left breast drain placement; 12/15/17; 0632 09/06/17 1330 by Joyce Qureshi RN 12/15/17 0632 by Gerald Vanessa RN Drain/Device Site 09/06/17; 1333; Left ; medial; breast; collapsible closed device; Andre Crowley MD; Sterile prep and drape; Lidocaine 1%; 12/15/17; 0632 09/06/17 1333 by Joyce Qureshi RN 12/15/17 0632 by Gerald Vanessa RN (RETIRED) Peripheral IV Line - Single Lumen 12/12/17; 1407; metacarpal vein (top of hand), right; msxo-ooa-xalesp catheter system; 22 gauge, 1 in length; Cheyenne Shanks RN; distraction, tolerated well, appears comfortable; 1; metacarpal vein (top of hand), right; site symptomatic, site care per policy/procedure, catheter/device intact, removed per policy/procedure; 12/13/17; 209912/12/17 1407 by Ira Smith RN 12/13/172099 by Lakia Casey RN ETT Mask Ventilation: Ad junct (2); ETT Type: Cuffed; ETT Size: 7 mm; Mac Blade: 3; Notes: Asleep, Pre-O2, Stylette; Attempts: 1; Laryngoscopy Grade: 1; ETT Placement Verified By: Auscultation, Capnometry, Visual; Inserted by: april teran; Removal Date: 12/12/17; Removal Time: 202612/12/17 161 by Ermias Batista CRNA 12/12/172026 by Poly Galloway CRNA (RETIRED) Peripheral IV Line - Single Lumen 12/12/17; 1624; other (see comments) (right saphenous); lnwx-iab-abafyy catheter system; 18 gauge; april teran; 12/12/17; 221612/12/17 1624 by Ermias Batista CRNA 12/12/172216 by Valerie Cruz RN Urethral Catheter 12/12/17; 1630; Surg dany longer than 2 hours, Physician order; Physician order; indwelling catheter with core temperature probe; hydrophilic coated; 14; inserted at this facility; 1; 10; 10; none; drainage bag to dependent drainage; 12/13/17; 1606 12/12/17 1630 by Constanza Corona RN 12/13/17 1606 by Lizbeth Hodges PAPIER MACHE MOLDER Incision 12/12/17; 1632; scap nia; 10/17/21 (LDA cleanup utility RA#[id number]); 1715 (LDA cleanup utility RA#[id number]) 12/12/17 1632 by Constanza Corona RN 10/17/21 1715 by Rosa Lyre L Incision 12/12/17; 1632; scap nia; 10/17/21 (LDA cleanup utility RA#[id number]); 1715 (LDA cleanup utility RA#[id number]) 12/12/17 1632 by Constanza Corona RN 10/17/21 1715 by Aliyah Dierdre L Incision 12/12/17; 1800; [address]; 10/17/21 (LDA cleanup utility RA#[id number]); 1715 (LDA cleanup utility RA#[id number]) 12/12/17 1800 by Delio Trejo RN 10/17/21 1715 by Rosa Lyre L Incision 12/12/17; 1800; [address]; 10/17/21 (LDA cleanup utility RA#[id number]); 1715 (LDA cleanup utility RA#[id number]) 12/12/17 1800 by Delio Trejo RN 10/17/21 1715 by Rosa Lyre Haylee Drain/Device Site 12/12/17; 1805; Left ; upper; mid axillary; collapsible closed device; Dr. Gimenez; Drain number 1; 01/31/23 LDA not present on assessment; 01/31/23; 1424 12/12/17 1805 by Constanza Corona RN 01/31/23 1424 by Susana Posadas RN Drain/Device [...] not present on assessment; 01/31/23; 1424 12/12/17 180 by Constanza Corona RN 01/31/23 1424 by Susana Posadas RN documented in this [...] OR Notes * Anesthesia Postprocedure Evaluation - Carmen Sena MD - 12/12/2017 10:56 PM EDT [facility] of Anesthesiology Post-procedure Note Patient: Wendy Sandoval Procedure Summary Date: 12/12/17 Room / Location: [address] MAIN OR Anesthesia Start: 1553 Anesthesia Stop: 2042 Procedures: REVISION OFRECONSTRUCTED BREAST, SUSAN (WRVU 10.41) (Bilateral Trunk) @BREAST RECONSTRUCTION W/ LAT DORSI FLAP,W/O IMPLANT, SUSAN (WRVU 23.36) (Bilateral Breast) TISSUE SHAKE OUT WORKER REPLACEMENT, WITH PERMANENT PROSTHESIS, SUSAN (WRVU 8.01) (Bilateral Breast) Diagnosis: (hx of breast cancer) Surgeon: Andre Gimenez MD Responsible Provider: Carmen Sena MD Anesthesia Type: general ASA Status: 3 All Anesthesia Providers: Anesthesiologist: Carmen Sena MD; Tino Booker MD ELECTROCARDIOGRAM TECHNICIAN: Poly Galloway CRNA Most Recent Vitals: 12/12/17 2254 BP: (!) 191/108 Pulse: Resp: 18 Temp: 36.7 ??C (98.1 ??F) SpO2: 99% Pain 8 (12/12/17 2313) Patient Location: PACU/[facility] Level of Consciousness: Conscious but Sleepy Pain Management: Satisfactory Analgesia PONV: None Cardiovascular Status: At Baseline and Hemodynamically Stable Respiratory Status: At Baseline and Supplemental O2 (NC or FM) Postoperative Fluid Status: Intravascular EUvolemia Possible Anesthetic Complications: NONE apparent at time of evaluation Final Primary Anesthesia Type: General (The anesthetic type performed was the same as planned.) Comments: CARMEN SENA MD * Anesthesia Preprocedure Evaluation - Tino Booker MD - 12/11/2017 3:51 PM EDT Pre-Anesthesia Evaluation for: Wendy Sandoval a 52 y.o. female. Procedure(s): REVISION OFRECONSTRUCTED BREAST, SUSAN (WRVU 10.41) @BREAST RECONSTRUCTION W/ LAT DORSI FLAP,W/O IMPLANT, SUSAN (WRVU 23.36) TISSUE SHAKE OUT WORKER REPLACEMENT, WITH PERMANENT PROSTHESIS, SUSAN (WRVU 8.01) BREAST, CAPSULOTOMY, OPEN PERIPROSTHETIC -SUSAN (WRVU 9.17) Patient Active Problem List Diagnosis ??? Seroma of breast ??? Bacterial [...] x 2 ??? HAND SURGERY Right ??? SHOULDER SURGERY Left ??? UMBILICAL HERNIA [...] >3 FB Neck ROM: full Cardiovascular Assessment: Rhythm: regular Rate: normal Pulmonary Assessment: breath sounds clear to auscultation Dental Assessment: - normal exam Misc Assessment: Anesthesia Plan: ASA 3 general, with a(n) intravenous induction This is a 52 y.o. female here for bilateral breast revision reconstruction with placement of permanent implants s/p breast cancer mastectomy. Underwent bilateral breast reconstruction with attempted SALVADOR flaps 04/26/17 arterial flap failure bilaterally, underwent left breast debridement 06/2017, tissue expanders in place. PMHx additionally significant for HTN prescribed losartan diltiazem, JACQUELYN utilizing CPAP, Obesity, hypothyroidism, s/p parathyroidectomy. Medications allergies reviewed and listed below. Allergies: -- Zoloft (Sertraline) -- PSORIASIS FLARE Anesthetic History: Previously tolerated GA without adverse event grade 1 view w/ MAC3 iGel size 4 Anesthetic Plan: GA with ETT Arterial line PIVx2 Dave Rubi MD 12/11/2017 Region - Other Informed Consent: Anesthetic plan and risks discussed with patient. Plan discussed with ELECTROCARDIOGRAM TECHNICIAN. PAT Staff Note documented in this encounter Plan of Treatment Upcoming Encounters Date Type Department Care Team (Late st Contact Info) Description 01/22/2024 10:30 AM EST Appointment Mammography/[place] [address] Ladi Mendosa MD [facility] HEMATOLOGY/[place] [address] 01/30/2024 11:30 AM EST Office Visit Dermatology at [place] [address] [place] [phone] Nilda Luis MD [facility] [address] [place] [address] 02/15/2024 9:30 AM EST [place] [phone] [place] [address] documented as of this encounter Visit Diagnoses Not on filedocumented in this encounter Administered Medications Inactive Administered Medications - up to 3 most recent administrations Medication Order MAR Action Action Date Dose Rate Site ceFAZolin (ANCEF) 2g in dextrose 5% 100 mL 2 g, Intravenous, ONCE, 1 dose, On Sun12/12/17 at 0615, Administer over 30 Minutes, Indication for (Active or Suspected): Prophylaxis Given 12/12/2017 7:03 PM EDT 2 g Given 12/12/2017 4:05 PM EDT 2 g dexamethasone (DECADRON) injection PRN, Starting on Sun12/12/17 at 1616, Until Sun12/12/17 at 2043, Anesthesia Intra-op, Routine Given 12/12/2017 4:16 PM EDT 8 mg dexmedetomidine (PRECEDEX) injection PRN, Starting on Sun12/12/17 at 1601, Until Sun12/12/17 at 2043, Anesthesia Intra-op, Routine Given 12/12/2017 4:01 PM EDT 16 mcg ePHEDrine 5 mg/mL multi-dose injection PRN, Starting on Sun12/12/17 at 1654, Until Sun12/12/17 at 2043, Anesthesia Intra-op, Routine Given 12/12/2017 5:14 PM EDT 5 mg Given 12/12/2017 4:54 PM EDT 10 mg fentaNYL 50 mcg/mL multi-dose injection PRN, Starting on Sun12/12/17 at 1745, Until Sun12/12/17 at 2043, Anesthesia Intra-op, Routine Given 12/12/2017 5:45 PM EDT 50 mcg Given 12/12/2017 4:00 PM EDT 50 mcg HYDROmorphone (DILAUDID) injection PRN, Starting on Sun12/12/17 at 1945, Until Sun12/12/17 at 2250, Anesthesia Intra-op, Routine Given 12/12/2017 7:53 PM EDT 0.5 mg Given 12/12/2017 7:45 PM EDT 0.5 mg lactated Ringers infusion CONTINUOUS PRN, Starting on Sun12/12/17 at 1554, Until Sun12/12/17 at 2042, Anesthesia Intra-op New Bag 12/12/2017 3:54 PM EDT New Bag 12/12/2017 3:54 PM EDT lidocaine (PF) (XYLOCAINE) 100 mg/5 mL (2 %) injection PRN, Starting on Sun12/12/17 at 1601, Until Sun12/12/17 at 2042, Anesthesia Intra-op, Routine Given 12/12/2017 4:01 PM EDT 60 mg midazolam (PF) (VERSED) multi-dose injection PRN, Starting on Sun12/12/17 at 1554, Until Sun12/12/17 at 2042, Anesthesia Intra-op, Routine Given 12/12/2017 3:54 PM EDT 2 mg PHENYLephrine in NS (PF) (LENA-SYNEPHRINE) 0.8 mg/10 mL (80 mcg/mL) multi-dose injection Syrg PRN, Starting on Sun12/12/17 at 1714, Until Sun12/12/17 at 2042, Anesthesia Intra-op, Routine Given 12/12/2017 5:14 PM EDT 80 mcg propofol (DIPRIVAN) 10 mg/mL bolus injection (Anesthesia) PRN, Starting on Sun12/12/17 at 1601, Until Sun12/12/17 at 2042, Anesthesia Intra-op Given 12/12/2017 4:01 PM EDT 200 mg propofol (DIPRIVAN) infusion CONTINUOUS PRN, Starting on Sun12/12/17 at 1611, Until Sun12/12/17 at 2042, Anesthesia Intra-op, Routine New Bag 12/12/2017 4:11 PM EDT 50 mcg/kg/min 23.9 mL/hr rocuronium (ZEMURON) multi-dose injection PRN, Starting on Sun12/12/17 at 1601, Until Sun12/12/17 at 2042, Anesthesia Intra-op, Routine Given 12/12/2017 4:01 PM EDT 50 mg sodium chloride 0.9% infusion CONTINUOUS PRN, Starting on Sun12/12/17 at 1616, Until Sun12/12/17 at 2042, Anesthesia Intra-op New Bag 12/12/2017 4:16 PM EDT documented in this encounter Care Teams Direct Mail Manager Relationship Specialty Start Date End Date Trinh Coates MD [facility] [address] [place] [address] PCP - General 01/11/10 documented as of this encounter
--- OUTSIDE RECORDS SUMMARY | 2023-09-07 11:29 | XMS_ITS | Encounter Summary ---
Author Organization [facility] Address [facility] [place] [address] Care Team Providers Care Video Production Engineer Name Role Phone Trinh Coates MD Primary Care Provider [phone] Reason for Visit * Reason Comments On Treatment Visit Encounter Details Date Type Department Care Team (Late st Contact Info) Description 01/29/2018 1:00 PM EST Office Visit Radiation Oncology at [address] [phone] Emily Choi MD [facility] [place] [address] Malignant neoplasm of upper-outer quadrant [...] Sign Reading Time Taken Comments Blood Pressure 145/83 01/29/2018 1:52 PM EST Pulse 67 01/29/2018 1:52 PM EST Temperature 36.9 ??C (98.4 ??F) 01/29/2018 1:52 PM ES T Respiratory Rate - - Oxygen Saturation 98% 01/29/2018 1:52 PM EST Inhaled Oxygen Concentration - - Weight - - Height - - Body Mass Index - - documented in this encounter Progress Notes * Emily Choi MD - 01/29/2018 1:00 PM EST Images from the original note were not included. DIAGNOSIS: Breast ca, L, IDC, gr 3, ER+ME+, 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 Adjuvant chemo then given, followed by anesthesiologist exchange for implants. CURRENT TREATMENT DOSE: 1.8 Gy L supraclav, L axilla & L reconstructed breast/chest wall ANTICIPATED TOTAL DOSE: 50.4 Gy L supraclav, L axilla & L reconstructed breast/chest wall Current # of xrt received: 1 Anticipated total # of xrt txs: 28 Evaluation of port verification films: Approved. For details, see electronic film record in [employer] System. Changes in Medical Condition: None. Sees PT 2 X/wk for lymphedema L arm. Pain?: No. Your Medications Accurate as of 01/29/18 2:08 PM. If you have any questions, ask [...] (Vitamin D3) Refills: 0 Physical Exam: BP 145/83 Pulse 67 Temp 36.9 ??C (98.4 ??F) (Oral) SpO2 98% A&Ox3, NAD. L arm & hand in ritika wrap. Imagin01/16/18 Dx'ic Rad Interp CTsim: No acute infxn/met dz. No complication of recent mastectomies/lymphadenectomies w/B silicone breast implant placement. Performance Status: KPS 90% Response to xrt: As expected. Irradiation Related Symptoms: None. Treatment for Symptom Control: Ander's cream. Pain Management: Not needed. Recommendation on Continuing Course of xrt: Cont. documented in this encounter Plan of Treatment Upcoming Encounters Date Type Department Care Team (Late st Contact Info) Description 01/22/2024 10:30 AM EST Appointment Mammography/[place] [address] Ladi Mendosa MD [facility] HEMATOLOGY/[place] [address] 01/30/2024 11:30 AM EST Office Visit Dermatology at [facility] [address] [place] [address] Nilda Luis MD [facility] DR [place] [address] 02/15/2024 9:30 AM EST [place] [address] [place] [address] documented as of this encounter Visit Diagnoses Diagnosis Malignant neoplasm of upper-outer quadrant of left female breast, unspecified estrogen receptor status documented in this encounter Care Teams Video Production Engineer Relationship Specialty Start Date End Date Trinh Coates MD [facility] [place] [address] [address] PCP - General 01/11/10 documented as of this encounter
--- OUTSIDE RECORDS SUMMARY | 2023-09-07 11:29 | XMS_ITS | Encounter Summary ---
[place] [address] Care Team Providers Care Membership Assistant Name Role Phone Trinh Coates MD Primary Care Provider [phone] Encounter Details Date Type Department Care Team (Late Contact Info) Description 01/17/2018 Telephone Hematology [place] [address] Sneha Vo, RN Social History Tobacco Use Types Packs/Day [...] encounter Miscellaneous Notes * Telephone Encounter - Sneha Vo RN - 01/17/2018 10:25 AM EST Message received: [employer] called- Wendy is asking for a prescription for two more gloves and two more sleeves - [phone] Orders entered, faxed to the above number, confirmation received documented in this encounter Plan of Treatment Upcoming Encounters Date Type Department Care Team (Late Contact Info) Description 01/22/2024 10:30 AM EST Appointment Mammography[place] [address] Ladi Mendosa MD [facility] HEMATOLOGY/[place] [address] 01/30/2024 11:30 AM EST Office Visit Dermatology at [facility] [address] [place] [address] Nilda Luis MD [facility] [address] [place] [address] 02/15/2024 9:30 AM EST [place] [address] [place] [address] documented as of this encounter Visit Diagnoses Diagnosis Malignant neoplasm of upper-outer quadrant of left breast in female, estrogen receptor positive documented in this encounter Care Teams Membership Assistant Relationship Specialty Start Date End Date Trinh Coates MD [facility] [place] [facility] [address] [place] [address] PCP - General 01/11/10 documented as of this encounter
--- OUTSIDE RECORDS SUMMARY | 2023-09-07 11:29 | XMS_ITS | Encounter Summary ---
Author Organization [facility] Address [facility] [place] [address] Care Team Providers Care House Piping Inspector Name Role Phone Trinh Coates MD Primary Care Provider [phone] Reason for Visit * Reason Comments On Treatment Visit Encounter Details Date Type Department Care Team (Late st Contact Info) Description 02/05/2018 1:00 PM EST Office Visit Radiation Oncology at [address] [phone] Emily Choi MD [facility] [place] [address] Malignant neoplasm of upper-outer quadrant [...] Sign Reading Time Taken Comments Blood Pressure 159/99 02/05/2018 12:55 PM EST Pulse 76 02/05/2018 12:55 PM EST Temperature 37.1 ??C (98.8 ??F) 02/05/2018 12:[address] Respiratory Rate 18 02/05/2018 12:55 PM EST Oxygen Saturation 100% 02/05/2018 12:55 PM EST Inhaled Oxygen Concentration - - Weight 80.7 kg (178 lb) 02/05/2018 12:55 PM EST Height 152.4 cm (5') 02/05/2018 12:55 PM EST Body Mass Index 34.76 02/05/2018 12:55 PM EST documented in this encounter Progress Notes * Emily Choi MD - 02/05/2018 1:00 PM EST Images from the original note were not included. DIAGNOSIS: Breast ca, L, IDC, gr 3, ER+PA+, 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 Adjuvant chemo then given, followed by inspector tool exchange for implants. CURRENT TREATMENT DOSE: 10.8 Gy L supraclav, L axilla & L reconstructed breast/chest wall ANTICIPATED TOTAL DOSE: 50.4 Gy L supraclav, L axilla & L reconstructed breast/chest wall Current # of xrt received: 6 L supraclav, L axilla & L reconstructed breast/chest wall Anticipated total # of xrt txs: 28 L supraclav, L axilla & L reconstructed breast Evaluation of port verification films: Approved. For details, see electronic film record in [employer] [facility]. Changes in Medical Condition: Has noticed small red spots on L post shoulder & along L side of chest. No itchiness. Pain?: No. Your Medications Accurate as of 02/05/18 1:04 PM. If you have any questions, ask [...] D3) Refills: 0 Physical Exam: BP (!) 159/99 (Patient Position: Sitting) Pulse 76 Temp 37.1 ??C (98.8 ??F) (Oral) Resp 18 Ht 152.4 cm (5') Wt 80.7 kg (178 lb) SpO2 100% BMI 34.76 kg/m?? A&Ox3, NAD.1-2 mm erythematous excoriations on L post shoulder [...] 01/22/2024 10:30 AM EST Appointment Mammography/DXA at [place] [phone] Ladi Mendosa MD [facility] HEMATOLOGY/[place] [address] 01/30/2024 11:30 AM EST Office Visit Dermatology at [address] [phone] Nilda Luis MD [facility] [address] [place] [address] 02/15/2024 9:30 AM EST Appointment [place] [address] [place] [address] documented as of this encounter Visit Diagnoses Diagnosis Malignant neoplasm of upper-outer quadrant of left female breast, unspecified estrogen receptor status documented in this encounter Care Teams House Piping Inspector Relationship Specialty Start Date End Date Trinh Coates MD [address] [facility] [place] [address] PCP - General 01/11/10 documented as of this encounter
--- OUTSIDE RECORDS SUMMARY | 2023-09-07 11:30 | XMS_ITS | Encounter Summary ---
Author Organization [facility] Address [facility] [place] [address] Care Team Providers Care Hot Strip Mill Supervisor Name Role Phone Trinh Coates MD Primary Care Provider [phone] Reason for Visit * Reason Comments Follow Up Surgery f/u breast recon, dr knight check Encounter Details Date Type Department Care Team (Late st Contact Info) Description 11/01/2017 9:20 AM EDT Office Visit [place] [address] Jolene Azevedo APRN [facility] [place] [address] S/P breast reconstruction, bilateral Social History Tobacco [...] Progress Notes * Jolene Azevedo APRN - 11/01/2017 9:20 AM EDT Plastic Surgery Follow Up Note Date of surgery: 04/26/17 Procedure(s): Bilateral breast reconstruction with attempted SALVADOR flaps, eventual tissue directory compiler placement with [place] Artoura 600 cc expanders placed bilaterally and filled with 450 cc of methyleneblue impregnated saline.) Complications: right parietal and visceral pleural tear, arterial flap failure bilaterally Date of surgery: 06/22/17 Procedure(s) left breast wound debridement, excision and closure. Debridement of umbilicus. Deflation of directory compiler volume, This leaves 450 cc in the left tissue directory compiler and 500 cc on the right side Chemotherapy: yes Radiation: yes Anticipated timeline: chemotherapy completion, when recovered will have expanders removed and permanent implants placed, approximately 3 weeks later will begin radiation. HPI: Pt reports she has been okay. She had two recent visits to the ED due to low potassium levels,which occurred on a weekend. She has started a potassium supplement. Drain output has been 40-80ml the past two days. She has two more chemotherapy treatments. Last treatment scheduled for 11/15. She reports left arm swelling. She reports that she was evaluated in ED and no DVT was found. Examination: Patient is alert, conversant, comfortable, ambulating Drain in place with gravity bag - Bag and tubing changed today. No erythema. Impression: Wendy Sandoval is a 52 y.o. female who was seen today for follow- up after the above procedure. Please see the operative note for details. Plan: Follow up in 5-6 weeks (3-4 weeks after completion of chemotherapy) PT PTT INR CBC at that time. If drain output gets below 30 ml per day x 2 days, please call IR for evaluation and possible removal. Continue on antibiotics until drain removed. Dr. Gimenez in to examine patient. He agrees with this plan. I, Nimo Llamas, have performed the documentation [...] 01/22/2024 10:30 AM EST Appointment Mammography/[place] [address] Ladi Mendosa MD [facility] HEMATOLOGY/[place] [address] 01/30/2024 11:30 AM EST Office Visit Dermatology at [facility] [address] [place] [address] Nilda Luis MD [facility] [address] [place] [address] 02/15/2024 9:30 AM EST Appointment [place] [address] [place] [address] documented as of this encounter Visit Diagnoses Diagnosis S/P breast reconstruction, bilateral Breast replaced by other means documented in this encounter Care Teams Hot Strip Mill Supervisor Relationship Specialty Start Date End Date Trinh Coates MD [facility] [address] [facility] 1 [place] [address] PCP - General 01/11/10 documented as of this encounter
--- OUTSIDE RECORDS SUMMARY | 2023-09-07 11:30 | XMS_ITS | Encounter Summary ---
Author Organization [facility] Address [facility] [place] [address] Care Team Providers Care Sand Slinger Name Role Phone Trinh Coates MD Primary Care Provider [phone] Encounter Details Date Type Department Care Team (Late st Contact Info) Description 11/16/2017 Orders [place] [phone] Jolene Azevedo APRN [facility] [place] [address] Social History Tobacco Use Types Packs/Day Years [...] 01/22/2024 10:30 AM EST Appointment Mammography[place] [phone] Ladi Mendosa MD [facility] HEMATOLOGY/[place] [address] 01/30/2024 11:30 AM EST Office Visit Dermatology at [facility] [address] [place] [address] Nilda Luis MD [facility] [address] [address] 02/15/2024 9:30 AM EST [place] [phone] [place] [address] documented as of this encounter Visit Diagnoses Not on filedocumented in this encounter Care Teams Sand Slinger Relationship Specialty Start Date End Date Trinh Coates MD [facility] [address] [address] PCP - General 01/11/10 documented as of this encounter
--- OUTSIDE RECORDS SUMMARY | 2023-09-07 11:30 | XMS_ITS | Encounter Summary ---
Author Organization [facility] Address [facility] [place] [address] Care Team Providers Care Physical Scientist Name Role Phone Trinh Coates MD Primary Care Provider [phone] Encounter Details Date Type Department Care Team (Late st Contact Info) Description 10/07/2017 Orders Only H[place]ology [place] [phone] García Chapin MD [facility] DR HEMATOLOGY/[place] [address] Social History Tobacco Use Types Packs/Day Years [...] 01/22/2024 10:30 AM EST Appointment Mammography[place] [phone] Ladi Mendosa MD [facility] DR HEMATOLOGY/[place] [address] 01/30/2024 11:30 AM EST Office Visit Dermatology at [facility] [address] [place] [address] Nilda Luis MD [facility] [address] [place] [address] 02/15/2024 9:30 AM EST [place] [phone] [place] [address] documented as of this encounter Visit Diagnoses Not on filedocumented in this encounter Care Teams Physical Scientist Relationship Specialty Start Date End Date Trinh Coates MD [facility] [address] [address] PCP - General 01/11/10 documented as of this encounter
--- OUTSIDE RECORDS SUMMARY | 2023-09-07 11:30 | XMS_ITS | Encounter Summary ---
Author Organization [facility] [place] [address] Care Team Providers Care Box Shook Patcher Name Role Phone Trinh Coates MD Primary Care Provider [phone] Reason for Visit * Reason Comments Breast Cancer * Treatment/Therapy Plan Authorization (Routine) - Closed Specialty Diagnoses / Procedures Referred By Diamante marin Referred To Contact Diagnoses Malignant neoplasm of upper-outer quadrant of left breast in female, estrogen receptor positive Procedures TC PACLITAXEL, 1MG, INJ TC PEGFILGRASTIM, 6MG, INJECTION Josias Barnett MD [facility] DR HEMATOLOGY/[place] [address] [facility]c [address] [place] [address] Referral ID Status Reason Start Date Expiration Date Visits Re quested Visits Authorized [id number] Closed 10/01/2017 10/01/2018 21 21 Encounter Details Date Type Department Care Team (Latest Contact Info) Description 11/01/2017 10:17 AM EDT - 11/01/2017 11:59 PM EDT Hospital Encounter [place] [address] Malignant neoplasm of upper-outer quadrant of left [...] Sign Reading Time Taken Comments Blood Pressure 144/92 11/01/2017 12:42 PM EDT Pulse - - Temperature - - Respiratory Rate - - Oxygen Saturation - - Inhaled Oxygen Concentration - - Weight - - Height - - Body Mass Index - - documented in this encounter Medications at Time [...] mg DR tablet 1 CAP daily 03/27/2014 dexamethasone (DECADRON) 4 mg Tablet Take 1 tablet by mouth 2 times daily (with meals). 20 tablet 10/19/2017 02/26/2018 cephalexin (KEFLEX) 500 mg Capsule 0 10/09/2017 11/16/2017 magnesium oxide (MAG-OX) 400 mg Tablet take 1 tablet by mouth twice a day 0 10/08/2017 11/30/2017 oxyCODONE (ROXICODONE) 5 mg Tablet take 1 tablet by mouth every 4 hours if needed 0 10/08/2017 11/30/2017 promethazine (PHENERGAN) 25 mg Tablet take 1 tablet by mouth every 4 hours if needed 0 10/08/2017 11/30/2017 omeprazole (PRILOSEC) 40 mg Capsule, Delayed Release(E.C.) Take 1 capsule by mouth daily. 90 capsule 11 08/23/2017 08/23/2018 prochlorperazine (COMPAZINE) 10 mg Tablet Take 1 tablet by mouth every 6 hours as needed for Nausea. 30 tablet 06/01/2017 11/30/2017 ondansetron (ZOFRAN) 4 mg Tablet Take 1 tablet by mouth every 8 hours as needed for Nausea. 20 tablet 05/25/2017 11/30/2017 Lactobacillus (BACID) 0.5 mg (100 million cell) Tablet Take 1 tablet by mouth daily. 30 tablet 05/01/2017 12/12/2017 acetaminophen (TYLENOL) 325 mg Tablet Take 2 tablets by mouth every 4 hours as needed for Pain. 11/03/2015 07/25/2022 documented as of this encounter Progress Notes * Loida Martinez RN - 11/01/2017 12:31 PM EDT Patient Name: Wendy Sandoval Patient Age: 52 y.o. Birthdate: 1965 Admit date: 11/01/2017 Attending Physician: No att. providers found Wendy Sandoval, 52 y.o. female with diagnosis of Breast Cancer is here for chemotherapy infusionof Paclitaxel. PROTOCOL: CYCLE: 3 DAY: 1 S: Pt. offers no complaints at this time. O: Chemotherapy orders independently verified for correct drug name, route and dosage per patient'sheight, weight and BSA by Loida Martinez RN and onsite pharmacist REACTIONS (DESCRIPTION, TIME, INTERVENTION AND EFFECTIVENESS) none A: Pt. Tolerated treatment well. Wendy Sandoval confirms that all questions and issues have beenaddressed. P: Return to clinic per routine. documented in this encounter Plan of Treatment Upcoming Encounters Date Type Department Care Team (Late st Contact Info) Description 01/22/2024 10:30 AM EST Appointment Mammography[place] [phone] Ladi Mendosa MD [facility] HEMATOLOGY/[place] [address] 01/30/2024 11:30 AM EST Office Visit Dermatology at [address] [place] [phone] Nilda Luis MD [facility] [address] 02/15/2024 9:30 AM [place] [phone] [place] [address] documented as of this encounter Visit Diagnoses Diagnosis Malignant neoplasm of upper-outer quadrant of left breast in female, estrogen receptor positive documented in this encounter Administered Medications Inactive Administered Medications - up to 3 most recent administrations Medication Order MAR Action Action Date Dose Rate Site dexamethasone (DECADRON) injection 10 mg 10 mg, Intravenous, ONCE, 1 dose, On Sosa 11/01/17 at 1215, Administer 30 minutes prior to PACLitaxel Given 11/01/2017 12:40 PM EDT 10 mg diphenhydrAMINE (BENADRYL) capsule 25 mg 25 mg, Oral, ONCE, 1 dose, On Sosa 11/01/17 at 1215, Routine Given 11/01/2017 12:39 PM EDT 25 mg famotidine (PEPCID) injection 20 mg 20 mg, Intravenous, ONCE, 1 dose, On Sosa 11/01/17 at 1215, Administer 30 minutes prior to PACLitaxel Given 11/01/2017 12:44 PM EDT 20 mg heparin, porcine 100 unit/mL flush 500 Units 500 Units, Intravenous, ONCE PRN, Starting on Sosa 11/01/17 at 1152, Until Sun11/02/17 at 0442, Line Care, Refer to Intravenous (IV) Procedure: Accessing Implanted Vascular Access Devices (654) procedure and/or Intravenous (IV) Job Aid: Adult Flushing & Catheter Care (2214) job aid for additional information regarding guidelines and administration., Routine Given 11/01/2017 4:42 PM EDT 500 Units ondansetron (ZOFRAN) injection 8 mg 8 mg, Intravenous, ONCE, 1 dose, On Sosa 11/01/17 at 1215 Given 11/01/2017 12:43 PM EDT 8 mg PACLitaxel (TAXOL) 317 mg in dextrose 5% Non-PVC 552.8333 mL chemo infusion 317 mg (rounded from 316.75 mg = 175 mg/m2/dose ? 1.81 m2 Treatment Plan BSA from Recorded weight), Intravenous, ONCE, 1 dose, On Sosa 11/01/17 at 1315, Administer over 3 Hours, Warning Vesicant/Irritant Medication New Bag 11/01/2017 1:28 PM EDT 317 mg 184.3 mL/hr sodium chloride 0.9 % flush 5-20 mL 5-20 mL, Intravenous, EVERY 1 MIN PRN, Starting on Sosa 11/01/17 at 1152, Until Sun11/02/17 at 0442, Line Care, Flush pertains to all indwelling lines. Flush per protocol found in the job aid using the link provided on this medication record. Refer to Intravenous (IV) Job Aid: Adult Flushing & Catheter Care (6852) job aid for additional information regarding guidelines and administration., Routine Given 11/01/2017 4:42 PM EDT 10 mLs documented in this encounter Care Teams Box Shook Patcher Relationship Specialty Start Date End Date Trinh Coates MD [facility] [address] [place] [address] PCP - General 01/11/10 documented as of this encounter
--- OUTSIDE RECORDS SUMMARY | 2023-09-07 11:30 | XMS_ITS | Encounter Summary ---
Author Organization [facility] [place] [address] Care Team Providers Care Security Incident Response Engineer Name Role Phone Trinh Coates MD Primary Care Provider [phone] Reason for Visit * Treatment/Therapy Plan Authorization (Routine) - Closed Specialty Diagnoses / Procedures Referred By Diamante marin Referred To Contact Diagnoses Malignant neoplasm of upper-outer quadrant of left breast in female, estrogen receptor positive Procedures TC PACLITAXEL, 1MG, INJ TC PEGFILGRASTIM, 6MG, INJECTION Josias Barnett MD [facility] DR HEMATOLOGY/[place] [address] [facility] [address] [place] [address] Referral ID Status Reason Start Date Expiration Date Visits Re quested Visits Authorized [id number] Closed 10/01/2017 10/01/2018 21 21 Encounter Details Date Type Department Care Team (Latest Contact Info) Description 10/18/2017 8:00 AM EDT - 10/18/2017 8:14 AM EDT Hospital Encounter [place] [address] Malignant neoplasm of upper-outer quadrant of left breast in female, estrogen receptor positive (Primary Dx) Discharge Disposition: Home Social History Tobacco Use [...] DR tablet 1 CAP daily 03/27/2014 024 cephalexin (KEFLEX) 500 mg Capsule 0 10/09/2017 11/16/2017 magnesium oxide (MAG-OX) 400 mg Tablet take 1 tablet by mouth twice a day 0 10/08/2017 11/30/2017 oxyCODONE (ROXICODONE) 5 mg Tablet take 1 tablet by mouth every 4 hours if needed 0 10/08/2017 11/30/2017 promethazine (PHENERGAN) 25 mg Tablet take 1 tablet by mouth every 4 hours if needed 0 10/08/2017 11/30/2017 traMADol (ULTRAM) 50 mg Tablet Take 1 tablet by mouth every 12 hours as needed for Pain. 7 tablet 10/07/2017 11/01/2017 omeprazole (PRILOSEC) 40 mg Capsule, Delayed Release(E.C.) [...] as of this encounter Progress Notes * Jenni Solo RN - 10/18/2017 8:28 AM EDT Patient Name: Wendy Sandoval Patient Age: 52 y.o. Birthdate: 1965 Admit date: 10/18/2017 Attending Physician: No att. providers found Access visit. See MAR and/or flowsheet. documented in this encounter Plan of Treatment Upcoming Encounters Date Type Department Care Team (Late st Contact Info) Description 01/22/2024 10:30 AM EST Appointment Mammography/[place] [phone] Ladi Mendosa MD [facility] HEMATOLOGY/[place] [address] 01/30/2024 11:30 AM EST Office Visit Dermatology at [address] [place] [address] Nilda Luis MD [facility] DR LIDIA AM[place] [address] 02/15/2024 9:30 AM [place] [phone] [place] [address] documented as of this encounter Procedures Procedure Name Priority Date/Time Associated Diagnosis Comments SCAN, PERIPHERAL BLOOD STAT 8 8:30 AM EDT HEMOGRAM STAT 10/18/2017 8:30 AM EDT Malignant neoplasm of upper-outer quadrant of left breast in female, estrogen receptor positive DIFFERENTIAL, AUTOMATED STAT 10/18/2017 8:30 AM EDT Malignant neoplasm of upper-outer quadrant of left breast in female, estrogen receptor positive CBC (WITH DIFF) STAT 10/18/2017 8:30 AM EDT Malignant neoplasm of upper-outer quadrant of left breast in female, estrogen receptor positive COMPREHENSIVE METABOLIC PANEL (NON-FASTING) STAT 10/18/2017 8:30 AM EDT Malignant neoplasm of upper-outer quadrant of left breast in female, estrogen receptor positive documented in this encounter Results * Scan, Peripheral Blood (10/18/2017 8:30 AM EDT) Plat Estimate Normal [facility] RBC Morphology Abnormal [facility] Microcytes 1-5 /HPF [facility] Ovalocytes 1-5 /HPF [facility] Giant Platelets Less than 1 /HPF [facility] Blood specimen (specimen) 10/18/2017 8:30 AM EDT 10/18/2017 8:32 AM EDT Narrative Resulting Agency Comment Spec In Lab Josias Barnett MD [place] [address] * (ABNORMAL) Differential, Automated (10/18/2017 8:30 AM EDT) Neutrophils % 75.9 % [facility] Neutr Abs (ANC) 14.84(H) 1.70 - 6.10 x10(3)/[facility] Lymphocytes % 5.9 % [facility] Lymphocytes Abs 1.2 0.9 - 3.2 x10(3)/[facility] Monocytes % 9.7 % [facility] Monocyte Abs 1.9(H) 0.3 - 0.9 x10(3)/[facility] Eosinophils % 1.9 % [facility] Eosinophils Abs 0.4 0.0 - 0.4 x10(3)/[facility] Basophils % 1.7 % [facility] Basophils Abs 0.3(H) 0.0 - 0.1 x10(3)/[facility] Immature Gran % 4.90 % [facility] Comment: Immature granulocytes(IG's)percentage and absolute count will include metamyelocytes, myelocytes, and promyelocytes. Blood smears from CBCs yielding IG's will be scanned manually for concordance. If this scan disagrees with the automated IG or if promyelocytes are noted, a manual differential will be performed. Nova Gran Abs 0.97(H) 0.00 - 0.04 x10(3)/[facility] Blood specimen (specimen) 10/18/2017 8:30 AM EDT 10/18/2017 8:32 AM EDT Narrative Resulting Agency Comment Spec In Lab Josias Barnett MD HEMATOLOGY ORDERABLE S [facility] [place] [address] * (ABNORMAL) Hemogram (10/18/2017 8:30 AM EDT) [facility] WBC 19.6(H) 4.0 - 9.5 x10(3)/[facility] RBC 3.15(L) 4.00 - 5.21 x10(6)/[facility] Hemoglobin 9.9(L) 11.7 - 15.5 gm/dL [facility] Hematocrit 30.1(L) 35.7 - 45.8 % [facility] MCV 95.6(H) 82.6 - 94.4 fL [facility] MCH 31.4 27.1 - 32.0 pg [facility] MCHC 32.9 31.7 - 35.0 gm/dL [facility] Platelets 337 145 - 357 x10(3)/[facility] RDWSD 63.4(H) 37.0 - 46.0 [facility]ATORY RDWCV 18.5(H) 11.5 - 14.1 % [facility] MPV 8.8 7.6 - 12.9 [facility] nRBC % Auto 0.3 % [facility] nRBC Abs Auto 0.050(H) 0.000 - 0.000 x10(3)/[facility] Blood specimen (specimen) 10/18/2017 8:30 AM EDT 10/18/2017 8:32 AM EDT Narrative Resulting Agency Comment Spec In Lab Josias Barnett MD HEMATOLOGY ORDERABLE S [facility] [place] [address] * (ABNORMAL) Comprehensive metabolic panel (non-fasting) (10/18/2017 8:30 AM EDT) [facility] Glucose Lvl 121 65 - 199 mg/dL [facility] Comment:Diabetes: >=200 mg/d L plus symptoms BUN 27(H) 8 - 18 mg/dL [facility] Creatinine 1.36(H) 0.70 - 1.20 mg/dL [facility] Sodium 139 135 - 145 mmol/L [facility] Potassium 4.3 3.5 - 5.0 mmol/L [facility] Comment: Please note: ??Patients with WBC >100,000 may have falsely elevated Potassium levels. ??For accurate Potassium quantification in these patients send serum separator tube (gold top) for subsequent determinations. ??Contact the Clinical Chemistry Laboratory if there are any questions. Chloride 104 98 - 107 mmol/L [facility] CO2 20(L) 22 - 31 mmol/L [facility] Anion Gap 15 5 - 15 mmol/L [facility] Calcium 9.0 8.5 - 10.5 mg/dL [facility] Total Protein 6.9 6.1 - 8.0 gm/dL [facility] Albumin 3.9 3.2 - 5.2 gm/dL [facility] AST 13 0 - 30 unit/L [facility] ALT 24 0 - 30 unit/L [facility] Alk Phos 139(H) 40 - 104 unit/L [facility] Total Bilirubin 0.3 0.2 - 1.3 mg/dL [facility] Estimated GFR 44(L) >=60 mL/min/1. 73 m?? [facility] Comment: The eGFR was calculated using the CKD-EPI equation. As with all creatinine based estimates of kidney function, eGFR values calculated with the CKD-EPI equation are not accurate in patients with acute kidney failure, extremes of body mass or the acutely ill. http://[employer]/[facility] eGFR 51(L) >=60 mL/min/1. 73 m?? [facility] Comment: The eGFR was calculated using the CKD-EPI equation. As with all creatinine based estimates of kidney function, eGFR values calculated with the CKD-EPI equation are not accurate in patients with acute kidney failure, extremes of body mass or the acutely ill. http://[employer]/[facility] Blood specimen (specimen) 10/18/2017 8:30 AM EDT 10/18/2017 8:32 AM EDT Narrative Resulting Agency Comment Spec In Lab Josias Barnett MD CHEMISTRY ORDERABLES [facility] [place] [address] documented in this encounter Visit Diagnoses Diagnosis Malignant neoplasm of upper-outer quadrant of left breast in female, estrogen receptor positive- Primary documented in this encounter Administered Medications Inactive Administered Medications - up to 3 most recent administrations Medication Order MAR Action Action Date Dose Rate Site sodium chloride 0.9 % flush 5-20 mL 5-20 mL, Intravenous, EVERY 1 MIN PRN, Starting on Sosa 10/18/17 at 0816, Until Sun10/19/17 at 0439, Line Care, Flush pertains to all indwelling lines. Flush per protocol found in the job aid using the link provided on this medication record. Refer to Intravenous (IV) Job Aid: Adult Flushing & Catheter Care (9381) job aid for additional information regarding guidelines and administration., Routine Given 10/18/2017 8:26 AM EDT 20 mLs documented in this encounter Care Teams Security Incident Response Engineer Relationship Specialty Start Date End Date Trinh Coates MD [address] [place] [address] PCP - General 01/11/10 documented as of this encounter
--- OUTSIDE RECORDS SUMMARY | 2023-09-07 11:30 | XMS_ITS | Encounter Summary ---
Author Organization [facility] [place] [address] Care Team Providers Care Communications Tower Technician Name Role Phone Trinh Coates MD Primary Care Provider [phone] Encounter Details Date Type Department Care Team (Latest Contact Info) Description 12/05/2017 9:30 AM EDT - 12/05/2017 11:59 PM EDT Hospital Encounter Hematology [place] [address] Malignant neoplasm of upper-outer quadrant of left [...] mouth daily. 90 capsule 11 08/23/2017 08/23/2018 Lactobacillus (BACID) 0.5 mg (100 million cell) Tablet Take 1 tablet by mouth daily. 30 tablet 05/01/2017 12/12/2017 acetaminophen (TYLENOL) 325 mg Tablet Take 2 tablets by mouth every 4 hours as needed for Pain. 11/03/2015 07/25/2022 documented as of this encounter Progress Notes * Madai Alvarez RN - 12/05/2017 10:26 AM EDT Patient Name: Wendy Sandoval Patient Age: 52 y.o. Birthdate: 1965 Admit date: 12/05/2017 Attending Physician: No att. providers found Access visit. See MAR and/or flowsheet. documented in this encounter Plan of Treatment Upcoming Encounters Date Type Department Care Team (Late st Contact Info) Description 01/22/2024 10:30 AM EST Appointment Mammography/[place] [phone] Ladi Mendosa MD [facility] DR HEMATOLOGY/[place] [address] 01/30/2024 11:30 AM EST Office Visit Dermatology at [address] [phone] Nilda Luis MD [facility] [address] [place] [address] 02/15/2024 9:30 AM EST Appointment [place] [phone] [place] [address] documented as of this encounter Procedures Procedure Name Priority Date/Time Associated Diagnosis Comments HEMOGRAM STAT 12/05/2017 10:24 AM EDT Malignant neoplasm of upper-outer quadrant of left breast in female, estrogen receptor positive DIFFERENTIAL, AUTOMATED STAT 12/05/2017 10:24 AM EDT Malignant neoplasm of upper-outer quadrant of left breast in female, estrogen receptor positive CBC (WITH DIFF) STAT 12/05/2017 10:24 AM EDT Malignant neoplasm of upper-outer quadrant of left breast in female, estrogen receptor positive COMPREHENSIVE METABOLIC PANEL (NON-FASTING) STAT 12/05/2017 10:24 AM EDT Malignant neoplasm of upper-outer quadrant of left breast in female, estrogen receptor positive documented in this encounter Results * (ABNORMAL) Differential, Automated (12/05/2017 10:24 AM EDT) Neutrophils % 70.1 % [facility] Neutr Abs (ANC) 7.54(H) 1.70 - 6.10 x10(3)/[facility] Lymphocytes % 13.0 % [facility] Lymphocytes Abs 1.4 0.9 - 3.2 x10(3)/[facility] Monocytes % 11.1 % [facility] Monocyte Abs 1.2(H) 0.3 - 0.9 x10(3)/[facility] Eosinophils % 3.5 % [facility] Eosinophils Abs 0.4 0.0 - 0.4 x10(3)/[facility] Basophils % 1.2 % [facility] Basophils Abs 0.1 0.0 - 0.1 x10(3)/[facility] Immature Gran % 1.10 % [facility] Comment: Immature granulocytes(IG's)percentage and absolute count will include metamyelocytes, myelocytes, and promyelocytes. Blood smears from CBCs yielding IG's will be scanned manually for concordance. If this scan disagrees with the automated IG or if promyelocytes are noted, a manual differential will be performed. Nova Gran Abs 0.12(H) 0.00 - 0.04 x10(3)/ L [facility] Blood specimen (specimen) 12/05/2017 10:24 AM EDT 12/05/2017 10:38 AM EDT Narrative Resulting Agency Comment Spec In Lab Sallyjessie Ren APRN HEMATOLOGY ORDERABL ES Performing Organization Address City/[facility]/[place] [address] * (ABNORMAL) Hemogram (12/05/2017 10:24 AM EDT) WBC 10.8(H) 4.0 - 9.5 x10(3)/[facility] LABORATORY RBC 3.22(L) 4.00 - 5.21 x10(6)/[facility] Hemoglobin 10.1(L) 11.7 - 15.5 gm/dL [facility] Hematocrit 31.2(L) 35.7 - 45.8 % [facility] MCV 96.9(H) 82.6 - 94.4 [facility] MCH 31.4 27.1 - 32.0 pg [facility] MCHC 32.4 31.7 - 35.0 gm/dL [facility] Platelets 403(H) 145 - 357 x10(3)/[facility] LAB[facility]ATORY RDWSD 54.4(H) 37.0 - 46.0 [facility] RDWCV 15.4(H) 11.5 - 14.1 % [facility] MPV 8.6 7.6 - 12.9 [facility] nRBC % Auto 0.0 % [facility] nRBC Abs Auto 0.000 0.000 - 0.000 x10(3)/[facility] Blood specimen (specimen) 12/05/2017 10:24 AM EDT 12/05/2017 10:38 AM EDT Narrative Resulting Agency Comment Spec In Lab Sally Ren APRN HEMATOLOGY ORDERABL ES Performing Organization Address City/[facility]/ZIP Co de Phone Number [facility] [place] [address] * (ABNORMAL) Comprehensive metabolic panel (non-fasting) (12/05/2017 10:24 AM EDT) Glucose Lvl 118 65 - 199 mg/dL [facility] Comment:Diabetes: >=200 mg/d L plus symptoms BUN 12 8 - 18 mg/dL [facility] Creatinine 0.89 0.70 - 1.20 mg/dL [facility] Sodium 145 135 - 145 mmol/L [facility] Potassium 3.5 3.5 - 5.0 mmol/L [facility] Comment: Please note: ??Patients with WBC >100,000 may have falsely elevated Potassium levels. ??For accurate Potassium quantification in these patients send serum separator tube (gold top) for subsequent determinations. ??Contact the Clinical Chemistry Laboratory if there are any questions. Chloride 105 98 - 107 mmol/L [facility] CO2 25 22 - 31 mmol/L [facility] Anion Gap 15 5 - 15 mmol/L [facility] Calcium 9.1 8.5 - 10.5 mg/dL [facility] Total Protein 6.6 6.1 - 8.0 gm/dL [facility] Albumin 3.9 3.2 - 5.2 gm/dL [facility] AST 15 0 - 30 unit/L [facility] ALT 18 0 - 30 unit/L [facility] Alk Phos 122(H) 40 - 104 unit/L [facility] Total Bilirubin 0.2 0.2 - 1.3 mg/dL [facility] Estimated GFR 73 >=60 mL/min/1. 73 m?? [facility] Comment: The eGFR was calculated using the CKD-EPI equation. As with all creatinine based estimates of kidney function, eGFR values calculated with the CKD-EPI equation are not accurate in patients with acute kidney failure, extremes of body mass or the acutely ill. http://[employer]/[facility]nkf eGFR 85 >=60 mL/min/1. 73 m?? [facility] Comment: The eGFR was calculated using the CKD-EPI equation. As with all creatinine based estimates of kidney function, eGFR values calculated with the CKD-EPI equation are not accurate in patients with acute kidney failure, extremes of body mass or the acutely ill. http://[employer]/[facility]MCnkf Blood specimen (specimen) 12/05/2017 10:24 AM EDT 12/05/2017 10:38 AM EDT Narrative Resulting Agency Comment Spec In Lab Sally Leach Gela COMMUNICATIONS ADMINISTRATOR CHEMISTRY ORDERABLE S [facility] [place] [address] documented in this encounter Visit Diagnoses Diagnosis Malignant neoplasm of upper-outer quadrant of left breast in female, estrogen receptor positive documented in this encounter Administered Medications Inactive Administered Medications - up to 3 most recent administrations Medication Order MAR Action Action Date Dose Rate Site heparin, porcine 100 unit/mL flush 500 Units 500 Units (5 mL), Intravenous, ONCE PRN, 1 dose, Starting on Sun12/05/17 at 1011, Until 12/05/17 at 1025, Line Care, Dormant flush every 4 weeks, Routine Given 12/05/2017 10:25 AM EDT 500 Units sodium chloride 0.9 % flush 10 mL 10 mL, Intravenous, EVERY 1 MIN PRN, Starting on 12/05/17 at 1011, Until Sosa 12/06/17 at 0439, To maintain line, Implanted IV Ports- Intermittent Flush; Give before and after medications or transfusions, Routine Given 12/05/2017 10:25 AM EDT 20 mLs documented in this encounter Care Teams Communications Tower Technician Relationship Specialty Start Date End Date Trinh Coates MD [address] [place] [address] PCP - General 01/11/10 documented as of this encounter
--- OUTSIDE RECORDS SUMMARY | 2023-09-07 11:30 | XMS_ITS | Encounter Summary ---
Author Organization [facility] Address [facility] [place] [address] Care Team Providers Care Solid Tire Tuber Machine Operator Name Role Phone Trinh Coates MD Primary Care Provider [phone] Reason for Visit * Reason Comments Follow Up Surgery breast drain Encounter Details Date Type Department Care Team (Late st Contact Info) Description 10/04/2017 8:00 AM EDT Office [place] [address] Jolene Azevedo APRN [facility] [place] [address] S/P breast reconstruction, bilateral Social History Tobacco [...] * Patient Instructions* Jolene Azevedo APRN - 10/04/2017 8:00 AM EDT Follow up 1 week Continue with antibiotics until drain removal documented in this encounter Progress Notes * Jolene Azevedo APRN - 10/04/2017 8:00 AM EDT Plastic Surgery Follow Up Note Date of surgery: 04/26/17 Procedure(s): Bilateral breast reconstruction with attempted SALVADOR flaps, eventual tissue electronic tech placement with [place] Artoura 600 cc expanders placed bilaterally and filled with 450 cc of methyleneblue impregnated saline.) Complications: right parietal and visceral pleural tear, arterial flap failure bilaterally Date of surgery: 06/22/17 Procedure(s) left breast wound debridement, excision and closure. Debridement of umbilicus. Deflation of electronic tech volume, This leaves 450 cc in the left tissue electronic tech and 500 cc on the right side Chemotherapy: yes Radiation: yes Anticipated timeline: chemotherapy completion, when recovered will have expanders removed and permanent implants placed, approximately 3 weeks later will begin radiation. HPI: Pt reports that she has been okay, but has felt some firmness in her left breast today. She isaccompanied by her daughter for today's visit. Her drain output has been averaging 30-40 ml per day. She reports that Josias Barnett is her Oncologist. Examination: Patient is alert, conversant, comfortable, ambulating Tissue expanders in place. Left breast drain in place with serous fluid in bag. Erythema completely resolved. Superior pole fullness. Impression: Wendy Sandoval is a 52 y.o. female who was seen today for follow- up after the above procedure. Please see the operative note for details. Drainage increasing. Discussed leaving the drain in place and continuing antibiotics until 1 week after the drain is removed. Plan: Follow up 1 week Continue with antibiotics until drain removal ISanket, have performed the documentation for this encounter in the presence of and acting as a scribe for JOLENE AZEVEDO APRN. I performed the services which were documented by the scribe, and I agree with the accuracy of the documentation in this encounter. Jolene Azevedo APRN documented in this encounter Plan of Treatment Upcoming Encounters Date Type Department Care Team (Late st Contact Info) Description 01/22/2024 10:30 AM EST Appointment Mammography[place] [phone] Ladi Mendosa MD [facility] HEMATOLOGY/[place] [address] 01/30/2024 11:30 AM EST Office Visit Dermatology at [facility] [address] [place] [address] Nilda Luis MD [facility] DR L[address] [place] [address] 02/15/2024 9:30 AM [place] [address] [place] [address] documented as of this encounter Visit Diagnoses Diagnosis S/P breast reconstruction, bilateral Breast replaced by other means documented in this encounter Care Teams Solid Tire Tuber Machine Operator Relationship Specialty Start Date End Date Trinh Coates MD [facility] [address] [place] [address] PCP - General 01/11/10 documented as of this encounter
--- OUTSIDE RECORDS SUMMARY | 2023-09-07 11:30 | XMS_ITS | Encounter Summary ---
Author Organization Formerly [facility] Address [facility] [place] [address] Care Team Providers Care Corporate Compliance Officer Name Role Phone Trinh Coates MD Primary Care Provider [phone] Encounter Details Date Type Department Care Team (Late st Contact Info) Description 10/18/2017 9:00 AM EDT Office Visit Hematology [place] [address] Sally Ren APRN [facility] [place] [address] Malignant neoplasm of upper-outer quadrant of left [...] Sign Reading Time Taken Comments Blood Pressure 147/99 10/18/2017 8:59 AM EDT Pulse 85 10/18/2017 8:59 AM EDT Temperature 36.9 ??C (98.4 ??F) 10/18/2017 8:59 AM ED T Respiratory Rate 18 10/18/2017 8:59 AM EDT Oxygen Saturation 100% 10/18/2017 8:59 AM EDT Inhaled Oxygen Concentration - - Weight 75.7 kg (166 lb 12.8 oz) 10/18/2017 8:59 AM EDT Height 156 cm (5' 1.42) 10/18/2017 8:59 AM EDT Body Mass Index 31.09 10/18/2017 8:59 AM EDT documented in this encounter Progress Notes * Sally Ren, BOOK CLEANER - 10/18/2017 9:00 AM EDT Subjective: Patient ID: Wendy Sandoval is a 52 y.o. female here for cycle 2 of adjuvant dose dense taxol today. Interval Hx: Wendy returns in follow up, accompanied by her son today. She still has a drain in her left breast, she continues on keflex. She notes the drainage has been fluctuating from 20 cc to 100 cc. She isconcerned because the color changed to an orange red yesterday. She does have follow up scheduled with plastic surgery today. She did have significant bone pain from her first taxol, starting on day 3. She called and was prescribed tramadol. This was not effective and she went to ED where she was found to have a K+ of 1.1 and WBC count of 33. She was admitted for hypokalemia and pain control. Shereports the pain was from her hips down to her feet and in her forearms. She has a decreased appetite. Her bowels are a bit loose. She was taken off diuretic and valsartan and started on losartan forblood pressure control. ROSEMARY Nguyen is a 51-year-old woman with a recent diagnosis of node positive breast cancer. She presented due to screening mammography, 03/08, this revealing a suspicious 2 cm nodule in the upper outer quadrant left breast. Right breast was unremarkable. Core biopsy demonstrated invasive cancer, ER/NV positive, HER- 2/pat negative. Breast MRI demonstrated additional findings as per the full report. She was seen in surgery and has undergone now bilateral MRM and SALVADOR reconstruction, as noted below she does have a significant family history of breast cancer. Her post-op course was complicated by infection and delayed wound healing. Review of Systems Constitutional: Positive for appetite change. Negative for chills and fever. HENT: Negative. Eyes: Negative. Eyes are watery Respiratory: Negative for cough and shortness of breath. Cardiovascular: Negative. Gastrointestinal: Negative. Endocrine: Negative. Genitourinary: Negative. Musculoskeletal: Negative. Skin: Negative. Allergic/Immunologic: Negative. Neurological: Negative. Hematological: Negative. Psychiatric/Behavioral: Negative. Objective: Physical Exam Constitutional: She is oriented to person, place, and time. She appears well- developed and well-nourished. No distress. HENT: Nose: Nose normal. Mouth/Throat: Oropharynx is clear and moist. No oropharyngeal exudate. Eyes: EOM are normal. Pupils are equal, round, and reactive to light. No scleral icterus. Neck: Neck supple. Cardiovascular: Normal rate, regular rhythm and normal heart sounds. No murmur heard. Pulmonary/Chest: Effort normal and breath sounds normal. She has no wheezes. She exhibits no tenderness. Port in right chest, site benign. YG drain to left chest. No axillary adenopathy bilaterally. Left reconstruction/tombstone erector helper larger than right. Abdominal: Soft. Bowel sounds are normal. She exhibits no distension. There is no tenderness. Musculoskeletal: Normal range of motion. She exhibits no edema or tenderness. Lymphadenopathy: She has no cervical adenopathy. Neurological: She is alert and oriented to person, place, and time. No cranial nerve deficit. Skin: Skin is warm and dry. She is not diaphoretic. Psychiatric: She has a normal mood and affect. Her behavior is normal. Most Recent Vitals: 10/18/17 0859 BP: (!) 147/99 Pulse: 85 Resp: 18 Temp: 36.9 ??C (98.4 ??F) SpO2: 100% Recent Results (from the past 72 hour(s)) Comprehensive metabolic panel (non-fasting) Result Value Ref Range Glucose Lvl 121 65 - 199 mg/dL BUN 27 (H) 8 - 18 mg/dL Creatinine 1.36 (H) 0.70 - 1.20 mg/dL Sodium 139 135 - 145 mmol/L Potassium 4.3 3.5 - 5.0 mmol/L Chloride 104 98 - 107 mmol/L CO2 20 (L) 22 - 31 mmol/L Anion Gap 15 5 - 15 mmol/L Calcium 9.0 8.5 - 10.5 mg/dL Total Protein 6.9 6.1 - 8.0 gm/dL Albumin 3.9 3.2 - 5.2 gm/dL AST 13 0 - 30 unit/L ALT 24 0 - 30 unit/L Alk Phos 139 (H) 40 - 104 unit/L Total Bilirubin 0.3 0.2 - 1.3 mg/dL eGFR 44 (L) >=60 mL/min/1.73 m?? eGFR 51 (L) >=60 mL/min/1.73 m?? Hemogram Result Value Ref Range WBC 19.6 (H) 4.0 - 9.5 x10(3)/mcL RBC 3.15 (L) 4.00 - 5.21 x10(6)/mcL Hemoglobin 9.9 (L) 11.7 - 15.5 gm/dL Hematocrit 30.1 (L) 35.7 - 45.8 % MCV 95.6 (H) 82.6 - 94.4 fL MCH 31.4 27.1 - 32.0 pg MCHC 32.9 31.7 - 35.0 gm/dL Platelets 337 145 - 357 x10(3)/mcL RDWSD 63.4 (H) 37.0 - 46.0 fL RDWCV 18.5 (H) 11.5 - 14.1 % MPV 8.8 7.6 - 12.9 fL nRBC % Auto 0.3 % nRBC Abs Auto 0.050 (H) 0.000 - 0.000 x10(3)/mcL Assessment and Plan: Wendy Sandoval is a 52 y.o. with ER/NV positive, HER-2/pat negative left breast cancer. She is s/p bilateral MRM with attempted SALVADOR flap reconstruction. This failed and she has expanders in place. This was complicated by delayed wound healing and infection. She has developed a fairly large seroma behind her left breast tombstone erector helper. Drain remains in place and she is on keflex. She received her first dose dense taxol two weeks ago. She had significant arthralgias and myalgias. She was hospitalized for a critical potassium. Her diuretic was stopped and she then developed a high potassium. She is having weekly labs with her PCP. Her labs are as above today. I will give her a liter of fluid in a ddition to her chemotherapy today for elevated kidney functions. Her electrolytes are WNL. I will hold her neulasta today. We discussed that she should call with any signs of infection or fever and that this could potentially delay her next cycle if her counts are not adequate. I have asked that her labs next week are forwarded to me. For her bone pain, I have called in dexamethasone 4 mg to be taken bid for 3 days starting on day 3. She also has 6 tabs of oxycodone from her hospitalization that she can take if needed. She will call if pain not controlled. Consider taxol dose reduction if pain persists. All questions were answered. She will call with questions or concerns. Sally Ren APRN documented in this encounter Plan of Treatment Upcoming Encounters Date Type Department Care Team (Late st Contact Info) Description 01/22/2024 10:30 AM EST Appointment Mammography/[place] [phone] Ladi Mendosa MD [facility] HEMATOLOGY/[place] [address] 01/30/2024 11:30 AM EST Office Visit Dermatology at [address] [address] Nilda Luis MD [facility] [address] [place] [address] 02/15/2024 9:30 AM EST Appointment [place] [address] [place] [address] documented as of this encounter Visit Diagnoses Diagnosis Malignant neoplasm of upper-outer quadrant of left breast in female, estrogen receptor positive documented in this encounter Care Teams Corporate Compliance Officer Relationship Specialty Start Date End Date Trinh Coates MD [address] [place] [address] PCP - General 01/11/10 documented as of this encounter
--- OUTSIDE RECORDS SUMMARY | 2023-09-07 11:30 | XMS_ITS | Encounter Summary ---
Author Organization Formerly [facility], Later [facility] [address] Care Team Providers Care Gasoline Pump Installer Name Role Phone Trinh Coates MD Primary Care Provider [phone] Reason for Visit * Reason Comments Breast Cancer * Treatment/Therapy Plan Authorization (Routine) - Closed Specialty Diagnoses / Procedures Referred By Diamante marin Referred To Contact Diagnoses Malignant neoplasm of upper-outer quadrant of left breast in female, estrogen receptor positive Procedures TC PACLITAXEL, 1MG, INJ TC PEGFILGRASTIM, 6MG, INJECTION Josias Barnett MD [facility] DR HEMATOLOGY/[place] [address] [facility] [address] [place] [address] Referral ID Status Reason Start Date Expiration Date Visits Re quested Visits Authorized [id number] Closed 10/01/2017 10/01/2018 21 21 Encounter Details Date Type Department Care Team (Latest Contact Info) Description 10/18/2017 8:15 AM EDT - 10/18/2017 11:59 PM EDT Hospital Encounter [place] [address] Malignant neoplasm of upper-outer quadrant [...] of this encounter Progress Notes * Jolene Winkler RN - 10/18/2017 10:54 AM EDT Patient Name: Wendy Sandoval Patient Age: 52 y.o. Birthdate: 1965 Admit date: 10/18/2017 Attending Physician: No att. providers found TIME TREATMENT STARTED: 1050 TIME TREATMENT ENDED: 1540 Wendy Sandoval, 52 y.o. female with diagnosis of breast cancer is here for chemotherapy infusionof Paclitaxel. PROTOCOL: n/a CYCLE: 2 WEEK: n/a DAY: 1 S: Pt. offers no complaints at this time. O: Chemotherapy orders independently verified for correct drug name, route and dosage per patient'sheight, weight and BSA by Jolene Winkler RN and onsite pharmacist REACTIONS (DESCRIPTION, TIME, INTERVENTION AND EFFECTIVENESS) none A: Pt. Tolerated treatment well. Wendy Sandoval confirms that all questions and issues have beenaddressed. P: Return to clinic as advised. documented in this encounter Plan of Treatment Upcoming Encounters Date Type Department Care Team (Late st Contact Info) Description 01/22/2024 10:30 AM EST Appointment Mammography/[place] [phone] Ladi Mendosa MD [facility] HEMATOLOGY/[place] [address] 01/30/2024 11:30 AM EST Office Visit Dermatology at [place] [address] [place] [phone] Nilda Luis MD [facility] [address] [address] 02/15/2024 9:30 AM EST [place] [phone] [place] [address] documented as of this encounter Visit Diagnoses Diagnosis Malignant neoplasm of upper-outer quadrant of left breast in female, estrogen receptor positive documented in this encounter Administered Medications Inactive Administered Medications - up to 3 most recent administrations Medication Order MAR Action Action Date Dose Rate Site dexamethasone (DECADRON) injection 10 mg 10 mg, Intravenous, ONCE, 1 dose, On Sosa 10/18/17 at 1045, Administer 30 minutes prior to PACLitaxel Given 10/18/2017 11:36 AM EDT 10 mg diphenhydrAMINE (BENADRYL) capsule 25 mg 25 mg, Oral, ONCE, 1 dose, On Sosa 10/18/17 at 1145, Routine Given 10/18/2017 11:28 AM EDT 25 mg famotidine (PEPCID) injection 20 mg 20 mg, Intravenous, ONCE, 1 dose, On Sosa 10/18/17 at 1045, Administer 30 minutes prior to PACLitaxel Given 10/18/2017 11:32 AM EDT 20 mg heparin, porcine 100 unit/mL flush 500 Units 500 Units, Intravenous, ONCE PRN, Starting on Sosa 10/18/17 at 1025, Until Sun10/19/17 at 0439, Line Care, Refer to Intravenous (IV) Procedure: Accessing Implanted Vascular Access Devices (654) procedure and/or Intravenous (IV) Job Aid: Adult Flushing & Catheter Care (1394) job aid for additional information regarding guidelines and administration., Routine Given 10/18/2017 3:37 PM EDT 500 Units ondansetron (ZOFRAN) injection 8 mg 8 mg, Intravenous, ONCE, 1 dose, On Sosa 10/18/17 at 1045 Given 10/18/2017 11:34 AM EDT 8 mg PACLitaxel (TAXOL) 317 mg in dextrose 5% Non-PVC 552.8333 mL chemo infusion 317 mg (rounded from 316.75 mg = 175 mg/m2/dose ? 1.81 m2 Treatment Plan BSA from Recorded weight), Intravenous, ONCE, 1 dose, On Sosa 10/18/17 at 1145, Administer over 3 Hours, Warning Vesicant/Irritant Medication New Bag 10/18/2017 12:22 PM EDT 317 mg 184.3 mL/hr sodium chloride 0.9 % flush 5-20 mL 5-20 mL, Intravenous, EVERY 1 MIN PRN, Starting on Sosa 10/18/17 at 1025, Until Sun10/19/17 at 0439, Line Care, Flush pertains to all indwelling lines. Flush per protocol found in the job aid using the link provided on this medication record. Refer to Intravenous (IV) Job Aid: Adult Flushing & Catheter Care (4993) job aid for additional information regarding guidelines and administration., Routine Given 10/18/2017 3:37 PM EDT 20 mLs sodium chloride 0.9% infusion 1,000 mL, at 999 mL/hr, Intravenous, ONCE, 1 dose, On Sosa 10/18/17 at 1045 New Bag 10/18/2017 11:20 AM EDT 1,000 mLs 999 mL/hr Implanted Port documented in this encounter Care Teams Gasoline Pump Installer Relationship Specialty Start Date End Date Trinh Coates MD [facility] [address] [place] [address] PCP - General 01/11/10 documented as of this encounter
--- OUTSIDE RECORDS SUMMARY | 2023-09-07 11:30 | XMS_ITS | Encounter Summary ---
Author Organization [facility] Address [facility] [place] [address] Care Team Providers Care Quality Tester Name Role Phone Trinh Coates MD Primary Care Provider Reason for Visit * Reason Comments Follow Up Surgery s/p bilat expanders Encounter Details Date Type Department Care Team (Late st Contact Info) Description 11/30/2017 11:20 AM EDT Office Visit [place] [address] Jolene Azevedo TRACTOR SWEEPER OPERATOR [facility] [place] [address] Malignant neoplasm of upper-outer quadrant of left [...] this encounter Patient Instructions * Patient Instructions* Gerri Kendrick RN - 11/30/2017 11:20 AM EDT You were given written and verbal preoperative instructions today. Patient was advised to: 2 weeks prior to surgery: Stop taking aspirin & ibuprofen type products, Stop vitamin E, Garlic supplements, Ginseng, Fish oil tablets, Ginkgo and Sammy Martinez's Wort. May resume 48 hours after surgery, Stop taking Tamoxifen and Estrogen and remain off these products for 2 weeks after surgery and Notify the doctor that has prescribed this medication that you have been requested to stop this medication 5 days before surgery: Nasal carriage of Staphylococcus aureus including methicillin-resistant S. aureus (MRSA) is associated with an increased risk for postoperative staphylococcal infection. Studies have shown that eliminating this germ from your nose prior to surgery may reduce your risk of developing a surgical site infection. For that reason, your provider has recommended the following preventative measure: Directions for Nasal Mupirocin 2% (Bactroban) Beginning five (5) days before your surgery, applyointment to both nostrils twice daily: 1) Wash your hands thoroughly with soap and water. 2) Apply a dab (approximately the size of a large pea) of medication to the finger tip. 3) Place the dab of medication inside your nostril and gently massage until absorbed. 4) Repeat in the other nostril. Log Chart Date of Surgery: Mupirocin Start Date: AM: Day 1 Day 2 Day 3 Day 4 Day 5 PM: Day 1 Day 2 Day 3 Day 4 Day 5 3 days before surgery: Do not shave near your surgical site 1 day before surgery: Shower the night before and the morning of your surgery using an antibacterial soap (Dial or Lever 2000) or Hibiclens that was provided Photos Taken: Yes with iPad To prepare for your upcoming surgery, please review the Pre-Operative Instruction brochure that youwere given at today's appointment. Feel free to call our office [phone] if you have any nursingquestions or concerns. We monitor the phones from 8-5 Sunday through Sunday. Expect a call from the Same Day Dept the business day before surgery to go over your list of medications and instruct you on arrival time, and when to stop eating and drinking. For questions pertaining to your surgery date or time please call Tawana at [phone]. documented in this encounter Progress Notes * Jolene Azevedo, TRACTOR SWEEPER OPERATOR - 11/30/2017 11:20 AM EDT Plastic Surgery Follow Up Note Date of surgery: 04/26/17 Procedure(s): Bilateral breast reconstruction with attempted SALVADOR flaps, eventual tissue marble rubber placement with [place] Artoura 600 cc expanders placed bilaterally and filled with 450 cc of methyleneblue impregnated saline.) Complications: right parietal and visceral pleural tear, arterial flap failure bilaterally Date of surgery: 06/22/17 Procedure(s) left breast wound debridement, excision and closure. Debridement of umbilicus. Deflation of marble rubber volume, This leaves 450 cc in the left tissue marble rubber and 500 cc on the right side Chemotherapy: yes - last dose 11/15 Radiation: yes Anticipated timeline: chemotherapy completion, when recovered will have expanders removed and permanent implants placed, approximately 3 weeks later will begin radiation. HPI: Pt reports she is generally well, she has finished chemotherapy treatment. She will had more labs including a CBC next week at her follow-up appointment. Drain output has been 25-30cc per day, and trending down. It has been 4 days now with drainage less than 30cc. IR is having her flush the drain daily. She reports her left breast feels more heavy than the right. Examination: Patient is alert, conversant, comfortable, ambulating Tissue expanders in place. Drain remains in place with serous fluid in bag. Drain site free of signs of infection. Impression: Wendy Sandoval is a 52 y.o. female who was seen today for follow- up after the above procedure. Please see the operative note for details. I discussed her care with Dr. Gimenez today, who recommended a tentative surgical date for 2-4 weeks from now for her exchange to implants (4-6 weeks after completion of chemotherapy). We will keep her drain in place for 1 more week. Plan: Follow up 1 week for drain removal, coordinated with Oncology appt Do not flush drain between now and next appt Surgical planning Surgeon: Ammy Duration: 90 mins Timeframe: 2-4 weeks Procedure: revision of breast reconstruction with exchange to permanent implants, capsulotomies CPT: 01959, 89699, 97855 Surgical site: Breasts Side: Fredo Anesthesia: General Follow up: 10-14 Days AEE when JN in clinic PAT: No Implants needed: 3x [id number] 350CC 12.3 [id number]-[id number] 370CC 12.6 [id number]-[id number] 405CC 12.7 RSZ-[id number] 440CC 13.1 RSZ-[id number] 465CC 13.3 RSZ-[id number] [id number] 490CC 13.6 RSZ-[id number] 525CC 13.9 RSZ-[id number] 545CC 14 RSZ-[id number] 560CC 14.3 RSZ-[id number] 605CC 14.5 [id number] I, Nimo Llamas, have performed the documentation [...] 01/22/2024 10:30 AM EST Appointment Mammography/[place] [address] Ladi Mendosa MD [facility] HEMATOLOGY/[place] [address] 01/30/2024 11:30 AM EST Office Visit Dermatology at [place] [address] [place] [phone] Nilda Luis MD [facility] DR [address] [place] [address] 02/15/2024 9:30 AM EST Appointment [place] [address] [place] [address] documented as of this encounter Procedures Procedure Name Priority Date/Time Associated Diagnosis Comments REVISION, RECONSTRUCTED BREAST, FREDO Routine 11/30/2017 11:26 AM EDT documented in this encounter Results * APTT (11/30/2017 10:29 AM EDT) PTT 33 25 - 37 sec [facility] Comment: The PTT is NOT appropriate for heparin monitoring. Use the Anti-Xa level for heparin monitoring (HEP UFH) or LMWH monitoring (HEP LMW). A PTT less than 37 seconds generally indicates adequate hemostasis. Blood specimen (specimen) 11/30/2017 10:29 AM EDT 11/30/2017 10:45 AM EDT Narrative Resulting Agency Comment Spec In Lab Jolene Azevedo APRN HEMATOLOGY ORDERABLE S Performing Organization Address City/[facility] Co de Phone Number [facility] [place] [address] * Prothrombin Time (11/30/2017 10:29 AM EDT) PT 12.3 9.4 - 12.5 sec [facility] INR 1.1 [facility] Comment: An INR <2.0 indicates adequate procoagulant activity for hemostasis in most patients without underlying bleeding disorders, though the INR may not adequately reflect hemostatic capacity in patients with liver disease and synthetic impairment. The recommended target INR range for therapeutic anticoagulation is 2.0 ? 3.0 for most applications, though lower and higher ranges may be appropriate depending on clinical circumstances. Blood specimen (specimen) 11/30/2017 10:29 AM EDT 11/30/2017 10:45 AM EDT Narrative Resulting Agency Comment Spec In Lab Jolene Azevedo APR[place] [address] documented in this encounter Visit Diagnoses Diagnosis Malignant neoplasm of upper-outer quadrant of left breast in female, estrogen receptor positive documented in this encounter Care Teams Quality Tester Relationship Specialty Start Date End Date Trinh Cotaes MD [address] [place] [address] PCP - General 01/11/10 documented as of this encounter
--- OUTSIDE RECORDS SUMMARY | 2023-09-07 11:30 | XMS_ITS | Encounter Summary ---
Author Organization [facility] Address [facility] [place] [address] Care Team Providers Care Inventory Control Assistant Name Role Phone Trinh Coates MD Primary Care Provider [phone] Encounter Details Date Type Department Care Team (Late st Contact Info) Description 10/28/2017 Telephone [place] [address] Abby Stevenson MD [facility] DR HEMATOLOGY/[place] [address] Social History Tobacco Use Types Packs/Day Years [...] encounter Miscellaneous Notes * Telephone Encounter - Abby Stevenson MD - 10/28/2017 10:44 AM EDT Mrs. Sandoval called in with worsening persistent numbness and tingling in her hands and feet. This has been ongoing intermittently for the last two weeks, requiring 2 ED visits to [facility] with potassium of 1.8 a few weeks ago requiring ICU monitoring, and a potassium of 2.7 on last check lastweek. She also reports left arm swelling - noticed today - with tingling in her L. Hand without associated redness or warmth. Otherwise denies fevers, CP, palpitations, SOB, abd pain, N/V or any other symptoms. Though she has labs set up at [facility] tomorrow, given her history of significant hypokalemia with high risk of arrhythmias, I recommended going to the ED to have her labs checked today. Requested that if she is hypokalemic, that they send her home with potassium supplementation prior to discharge. Also recommended evaluation of the L. Arm for possible DVT (though her port is on the R. Side). She understood the plan and agreed to call if she had any further questions. If discharged today, will still plan on getting labs checked tomorrow and faxed to [facility] for follow up. Encouraged her to call back if she has any further questions. Abby Stevenson MD Hematology/Oncology Fellow 10/28/17 CC: Dr. Barnett & Breast casing blower documented in this encounter Plan of Treatment Upcoming Encounters Date Type Department Care Team (Late st Contact Info) Description 01/22/2024 10:30 AM EST Appointment Mammography/DXA at [place] [phone] Ladi Mendosa MD [facility] DR [place]EMATOLOGY/[place] [address] 01/30/2024 11:30 AM EST Office Visit Dermatology at [place] [address] [place] [address] Nilda Luis MD [facility] [address] [place] [address] 02/15/2024 9:30 AM [place] [address] [place] [address] documented as of this encounter Visit Diagnoses Not on filedocumented in this encounter Care Teams Inventory Control Assistant Relationship Specialty Start Date End Date Trinh Coates MD [facility] [address] [place] [address] PCP - General 01/11/10 documented as of this encounter
--- OUTSIDE RECORDS SUMMARY | 2023-09-07 11:30 | XMS_ITS | Encounter Summary ---
Author Organization [facility] Address [facility] [place] [address] Care Team Providers Care Restoration Ecologist Name Role Phone Trinh Coates MD Primary Care Provider [phone] Encounter Details Date Type Department Care Team (Late st Contact Info) Description 10/28/2017 Telephone [place]ology [place] [address] Abby Stevenson MD [facility] DR HEMATOLOGY/[place] [address] Social History Tobacco Use Types Packs/Day Years [...] Encounter - Abby Stevenson MD - 10/28/2017 1:49 PM EDT Received a call from lucas Nuñez at [facility] calling to discuss Mrs. Sandoval's care. (please see previous note regarding Mrs. Sandoval's tingling/numnbess). She was hypokalemic at 2.9 with Mg 1.5, in addition to an elevated BUN concerning for dehydration so she was given oral K+, IV Mg, and some IVF. Significant labs: WBC 14 (recently received neulasta), Hgb 9.2, Plt 452 K 2.9, Mg 1.5, Ca 8.1 Given her ongoing hypokalemia, recommended discharging her with oral potassium daily until her scheduled follow up with us on . Has labs ordered for tomorrow at [facility], but asked if these couldbe deferred until Sunday for a better idea of her potassium status. Of note, she was also noted to have significant (and acutely new) L. Arm swelling without pain or erythema (new since visit 4 days ago); however, I expressed concern for possible DVT vs. 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 Unfortunately they may not have US today (and we don't at [facility]), so if there was high enough suspicion for DVT based off of their exam, recommended a dose of lovenox with outpatient US tomorrow (which is what we would do at the [facility] ED on a weekend). EKG was normal and no CP/SOB/tachycardia to suggest PE. All questions were answered and they were encouraged to call with any other concerns. Asked Mrs. Sandoval to call the clinic tomorrow with any updates. CC: Dr. Barnett & Breast Onc 3d modeler Abby Stevenson MD Hematology/Oncology Fellow 10/28/17 documented in this encounter Plan of Treatment Upcoming Encounters Date Type Department Care Team (Late st Contact Info) Description 01/22/2024 10:30 AM EST Appointment Mammography[place] [address] Ladi Mendosa MD [facility] HEMATOLOGY/[place] [address] 01/30/2024 11:30 AM EST Office Visit Dermatology at [facility] [address] [place] [phone] Nilda Luis MD [facility] DR [address] [place] [address] 02/15/2024 9:30 AM [place] [address] [place] [address] documented as of this encounter Visit Diagnoses Not on filedocumented in this encounter Care Teams Restoration Ecologist Relationship Specialty Start Date End Date Trinh Coates MD [facility] [address] [place] [address] PCP - General 01/11/10 documented as of this encounter
--- OUTSIDE RECORDS SUMMARY | 2023-09-07 11:30 | XMS_ITS | Encounter Summary ---
Author Organization [facility] Address [facility] [place] [address] Care Team Providers Care Maori Physiotherapist Name Role Phone Trinh Coates MD Primary Care Provider [phone] Reason for Visit * Reason Comments Follow Up Surgery check breast drain Encounter Details Date Type Department Care Team (Late st Contact Info) Description 10/10/2017 10:20 AM EDT Office [place] [address] Jolene Azevedo APRN [facility] [place] [place] [address] Surgery follow-up Social History Tobacco Use Types [...] Sign Reading Time Taken Comments Blood Pressure 137/88 10/10/2017 10:49 AM EDT Pulse 79 10/10/2017 10:49 AM EDT Temperature 36.9 ??C (98.4 ??F) 10/10/2017 10:49 AM E DT Respiratory Rate - - Oxygen Saturation 98% 10/10/2017 10:49 AM EDT Inhaled Oxygen Concentration - - Weight - - Height - - Body Mass Index - - documented in this encounter Progress Notes * Jolene Azevedo APRN - 10/10/2017 10:20 AM EDT Plastic Surgery Follow Up Note Date of surgery: 04/26/17 Procedure(s): Bilateral breast reconstruction with attempted SALVADOR flaps, eventual tissue order manager placement with Kendalia Artoura 600 cc expanders placed bilaterally and filled with 450 cc of methyleneblue impregnated saline.) Complications: right parietal and visceral pleural tear, arterial flap failure bilaterally Date of surgery: 06/22/17 Procedure(s) left breast wound debridement, excision and closure. Debridement of umbilicus. Deflation of order manager volume, This leaves 450 cc in the left tissue order manager and 500 cc on the right side Chemotherapy: yes Radiation: yes Anticipated timeline: chemotherapy completion, when recovered will have expanders removed and permanent implants placed, approximately 3 weeks later will begin radiation. HPI: Pt reports that she has been okay. She has been feeling weird and reports facial numbness. She was seen in the ED at [facility] where she was treated by Dr. Javier Wilson. Drain output has increased recently. She meets with Oncology next week. Examination: Most Recent Vitals: 10/10/17 1049 BP: 137/88 Pulse: 79 Temp: 36.9 ??C (98.4 ??F) SpO2: 98% Patient is alert, conversant, comfortable, ambulating Tissue expanders in place. Drain in place with serous fluid in bag. Drain site free of sings of infection. Impression: Wendy Sandoval is a 52 y.o. female who was seen today for follow- up after the above procedure. Please see the operative note for details. Drain will not be removed today given increased serous output. I did call her PCP's office to discuss recent admission and reports of facial numbness. They will contact the patient. Plan: Follow up 1 week for drain check. Leave drain dressing in place until your visit next week. Continue antibiotics until 1 week after drain removed. Your PCP will call you today. I, Ann Marie Smalls, have performed the documentation for this encounter in the presence of and acting as a scribe for Jolene Azevedo APRN I performed the services which were documented by the scribe, and I agree with the accuracy of thedocumentation in this encounter. Jolene Azevedo APRN documented in this encounter Plan of Treatment Upcoming Encounters Date Type Department Care Team (Late st Contact Info) Description 01/22/2024 10:30 AM EST Appointment Mammography/[place] [phone] Ladi Mendosa MD [facility] H[place]ATOLOGY/[place] [address] 01/30/2024 11:30 AM EST Office Visit Dermatology at [address] [place] [phone] Nilda Luis MD [facility] [address] [place] [address] 02/15/2024 9:30 AM EST [place] [address] [place] [address] documented as of this encounter Visit Diagnoses Diagnosis Surgery follow-up Follow-up examination, following unspecified surgery documented in this encounter Care Teams Maori Physiotherapist Relationship Specialty Start Date End Date Trinh Coates MD [facility] [address] [place] [address] PCP - General 01/11/10 documented as of this encounter
--- OUTSIDE RECORDS SUMMARY | 2023-09-07 11:30 | XMS_ITS | Encounter Summary ---
Author Organization [facility] [place] [address] Care Team Providers Care Forensic Locksmith Name Role Phone Trinh Coates MD Primary Care Provider [phone] Encounter Details Date Type Department Care Team (Late st Contact Info) Description 11/14/2017 Telephone Hematology [place] [address] Corine Barron [facility] HEMATOLOGY/[place] [address] Social History Tobacco Use Types Packs/Day Years [...] encounter Miscellaneous Notes * Telephone Encounter - Corine Barron LGC - 11/14/2017 4:10 PM EDT This test result was discussed with the patient by phone. A copy of a letter sent to the patient containing these results is provided below. Please be advised that [place] law requires that allhealth care workers respect the confidentiality of this information and not pass it along to other health care providers, insurance companies, or individuals without the written permission of the patient. The Familial Cancer Program welcomes any questions about these matters. Our phone number is: [phone]. On October 31, 2017, Wendy underwent genetic testing for a hereditary predisposition to common hereditary cancers, including breast, gynecologic and gastrointestinal cancers. Following are the results of this test. Result: [facility]'s Common Hereditary Cancers Panel showed no mutation was detected. This means that Wendy does not carry a mutation in the genes detectable by this test. The following genes were evaluated for sequence changes and exonic deletions/duplications: APC, AMAURY, AXIN2, BARD1, BMPR1A, BRCA1, BRCA2,BRIP1, CDH1, CDKN2A (p14ARF), CDKN2A ([id number]), CHEK2, CTNNA1, DICER1, EPCAM (EPCAM: Deletion/duplication testing only ([id number]), GREM1 (GREM1: Promoter region deletion/duplication testing only.), KIT, MEN1, MLH1, MSH2, MSH3, MSH6, MUTYH, NBN, NF1, PALB2, PDGFRA, PMS2, POLD1, POLE, PTEN, RAD50, RAD51C, RAD51D, SDHB, SDHC, SDHD, SMAD4, SMARCA4, STK11, TP53, TSC1, TSC2, VHL. The following genes were evaluated for sequence changes only: HOXB13 (c.251G>A, p.Hfy79Wdc variant only), NTHL1 (NTHL1: Deletion/duplication analysis is not offered for this gene ([id number]), and SDHA. A variant of uncertain significance in the AMAURY gene, specifically c.5727G>A (p.[id number]), was detected. [facility] enclosing a printed copy of Wendy's test results. Interpretation: It is unclear at this time whether the AMAURY variant of uncertain significance identified in Wendy is a cancer associated mutation or is a benign change in the gene with no increased cancer risks. [facility] is continually collecting and analyzing their data, in an effort to reclassify these variants as either cancer causing mutations or benign changes in a gene (also called polymorphisms). We will be contacted by the laboratory when reclassification is made and we would then notify Wendy. Because the genetic basis, if any, of the breast cancer in Wendy and breast and colon cancer in her family has not been identified, this negative test result does not necessarily mean that Wendy's cancer was sporadic (i.e. not attributable to an inherited predisposition). This is because of twoimportant limitations of the test. First, not all inherited predisposition to cancer is attributable to the genes tested by this panel. Research has identified other genes that when mutated can increase one???s risk of cancer. Second, a small percentage of mutations in genes tested by this panel may be missed by current technology. Additional genetic testing for Wendy is not recommended at this time. Family members should NOT be tested for the AMAURY variant of uncertain significance identified to find out their cancer risk. Although her maternal aunt, Ladi, and her maternal cousins, Bethany and Barbie, may want to consider comprehensive genetic testing themselves at this time, if not all ready done or if done more than 3 years ago. Screening Recommendations Based on genetic test results and personal and family history, upon completion of treatment, we recommend: Breast cancer screening ?? Having undergone a bilateral mastectomy, there is no established breast cancer screening recommended. Ovarian cancer screening ?? We do not recommend any special screening studies in addition to an annual R D ENGINEER exam at this time. Other cancer screening ?? Periodic colonoscopy screening as recommended by Wendy's outside food server. ?? Periodic skin exams documented in this encounter Plan of Treatment Upcoming Encounters Date Type Department Care Team (Late st Contact Info) Description 01/22/2024 10:30 AM EST Appointment Mammography[place] [address] Ladi Mendosa MD [facility] HEMATOLOGY/[place] [address] 01/30/2024 11:30 AM EST Office Visit Dermatology at [place] [address] [place] [address] Nilda Luis MD [facility] DR [address] [place] [address] 02/15/2024 9:30 AM EST [place] [address] [place] [address] documented as of this encounter Visit Diagnoses Not on filedocumented in this encounter Care Teams Forensic Locksmith Relationship Specialty Start Date End Date Trinh Coates MD [facility] [address] [facility] [address] [place] [address] PCP - General 01/11/10 documented as of this encounter
--- OUTSIDE RECORDS SUMMARY | 2023-09-07 11:30 | XMS_ITS | Encounter Summary ---
Author Organization [facility] Address [facility] [address] Care Team Providers Care Correspondence Representative Name Role Phone Trinh Coates MD Primary Care Provider [phone] Encounter Details Date Type Department Care Team (Late st Contact Info) Description 10/24/2017 Telephone Hematology [place] [address] Jonathan Brown MD [facility] DR HEMATOLOGY/[place] [address] Social History Tobacco Use Types Packs/Day Years [...] encounter Miscellaneous Notes * Telephone Encounter - Jonathan Brown - 10/24/2017 1:56 PM EDT Patient presented to ED again with potassium 2.6. ED physician calling to get recommendations. Patient frustrated with frequent hospital visits. Her potassiums have been labile, with elevations and drops in number. Ultimately, we decided to replenish it in the ED, recheck to ensure that it is improving. documented in this encounter Plan of Treatment Upcoming Encounters Date Type Department Care Team (Late st Contact Info) Description 01/22/2024 10:30 AM EST Appointment Mammography[place] [phone] Ladi Mendosa MD [facility] HEMATOLOGY/[place] [address] 01/30/2024 11:30 AM EST Office Visit Dermatology at [address] [place] [phone] Nilda Luis MD [facility] [address] 02/15/2024 9:30 AM EST Appointment Radiology at [place] [phone] [place] [address] documented as of this encounter Visit Diagnoses Not on filedocumented in this encounter Care Teams Correspondence Representative Relationship Specialty Start Date End Date Trinh Coates MD [facility] [address] [place] [address] PCP - General 01/11/10 documented as of this encounter
--- OUTSIDE RECORDS SUMMARY | 2023-09-07 11:30 | XMS_ITS | Encounter Summary ---
Author Organization [facility] [place] [address] Care Team Providers Care Clean Rice Broker Name Role Phone Trinh Coates MD Primary Care Provider [phone] Reason for Referral * Diagnostic Test (Routine) - Closed Specialty Diagnoses / Procedures Referred By Contac t Referred To Contact Radiology Diagnoses Malignant neoplasm of left female breast, unspecified estrogen receptor status, unspecified site of breast Procedures IR Drain Check/Change/Remove Doreen Mcgovern MD [facility] [place] [address] [place] [address] Referral ID Status Reason Start Date Expiration Date V isits Requested Visits Authorized [id number] Closed Specialty Service Requested 11/16/2017 11/16/2018 1 1 Reason for Visit * Diagnostic Test (Routine) - Closed Specialty Diagnoses / Procedures Referred By Contac t Referred To Contact Radiology Diagnoses Malignant neoplasm of left female breast, unspecified estrogen receptor status, unspecified site of breast Procedures IR Drain Check/Change/Remove Doreen Mcgovern MD [facility] [place] [address] [place] [address] Referral ID Status Reason Start Date Expiration Date V isits Requested Visits Authorized [id number] Closed Specialty Service Requested 11/16/2017 11/16/2018 1 1 Encounter Details Date Type Department Care Team (Latest Contact Info) Description 11/20/2017 9:46 AM EDT - 11/20/2017 11:59 PM EDT Hospital [place] [address] Marcos Dey MD [facility] [place] [address] Malignant neoplasm of left female breast, unspecified estrogen receptor status, unspecified site of breast Discharge Disposition: Home Social History Tobacco Use [...] Sign Reading Time Taken Comments Blood Pressure 156/99 11/20/2017 10:40 AM EDT Pulse 85 11/20/2017 10:17 AM EDT Temperature 36.7 ??C (98.1 ??F) 11/20/2017 10:17 AM E DT Respiratory Rate 18 11/20/2017 10:40 AM EDT Oxygen Saturation 96% 11/20/2017 10:45 AM EDT Inhaled Oxygen Concentration - - Weight - - Height - - Body Mass Index - - documented in this encounter Discharge Instructions * Discharge Instructions* Agapito Schrader RN - 11/20/2017 10:49 AM EDT Images from the original note were not included. INTERVENTIONAL RADIOLOGY DRAIN CARE INSTRUCTIONS Drains help to keep fluid from collecting by removing the extra blood and fluid from under the skinor from an abscess within the body. A drain is temporary. It stays in place until the drainage has slowed down or stopped. Your Provider will decide when each drain should be removed. This is usuallyafter each drain has 30cc or less in 24 hours for 2-3 days in a row. You will then be scheduled for what is called a Sinogram to check and see if the fluid collection has gotten smaller. How do I care for the drains at home? Pin your drain/s to your clothing by using a safety pin through the plastic loop on the top of the bulb. If the drain is not attached to your clothing, it may pull out from under your skin. Also, a drain usually feels more comfortable when it???s attached. To care for the drain at home, you will have to empty the drain, ???strip?? the drain tubing, and change the dressing if applicable. * See the following pages for instructions on how to do this. What problems may I have with my drain? The bulb is not compressed- The bulb may not be squeezed tightly enough, the plug may not be closed securely, or the tube has slipped out a bit and is leaking. Follow the instructions on how to empty the drain. If the bulb remains expanded, then notify your doctor or nurse during business hours. ??? No drainage or sudden decrease in amount of drainage- This may be due to a plug in the drain. Please notify your doctor or nurse during business hours. ??? The tube accidentally falls out- If this happens, place a dry gauze dressing over the drain site and notify your doctor or nurse during business hours. ??? Increased redness, swelling, or heat around the tube insertion site- This may be a sign of infection. Take your temperature: if it is higher than 101F or 38.8C, call your doctor or nurse immediately. Otherwise, notify your doctor or nurse during business hours and keep the dressing clean and dry. How to Empty Your Drain and flush drain Note: Wash your hands thoroughly before emptying your drain(s). Unpin the drain from your clothing. 1. Turn the white stopcock so it is not parallel (in line) with the tubing. 2. Unscrew the tubing with the bulb attached from stopcock. Make sure you keep everything clean. 3. Attach the syringe with sterile saline to the stopcock. 4. Inject saline per MD order, 3-5 cc's once daily. Forward flush only, do not aspirate back. 5. Re-attach the tubing with the bulb to the stopcock. 6. Invert the bulb and pull open the plug. 7. Have the plastic measuring cup from the hospital ready to collect and measure the drainage. Please measure the output at the same time every 24 hours and record the amount. 8. Turn the drain upside down and squeeze the contents of the bulb into the measuring cup. Be sure to empty the bulb as completely as possible. Flush the contents in the toilet. 9. Use the drain output log chart to record the amount of drainage twice a day or any time the bulbis full. Record the total for 24 hours for each drain you have. 10. If you have more than one drain, remember to record the drainage from each drain separately. 11. To prevent infection, do not let the stopper or top of the bottle touch the measuring cup or any other surface. 1. 2. Use one hand to squeeze all of the air from the drain. With the drain still squeezed, use your other hand to replace the top. This creates the suction necessary to remove the fluids from your body. 3. Pin the drain back on your clothing to avoid pulling it out accidently. 4. Wash your hands again. Remember to wash your hands before and after the procedure to reduce the risk of infection. Flushing the Drain: Your doctor may want the drain to be flushed once daily to keep the fluid from plugging the drain. Flush the drain with 3-5 cc daily with the syringes supplied to you. FORWARD FLUSH ONLY, DO NOT ASPIRATE BACK. When to call the Interventional Radiology Department: Please call with any questions or concerns. If it is during regular office hours, please call [phone]. If it is after regular office hours, or on weekends or holidays, please call [phone] and ask to speak to the Dietetic Assistant environmental health technician for Interventional Radiology. XX You have received medication during your procedure to help lesson anxiety and keep you comfortable. These medications affect judgement and reaction time. We [...] please contact your M. D. Revised 03/05/15 Drainage Record NAME: Date of Surgery: Date: Time: If more than one drain, which one: Drainage Amount (per drain) Total Amount (per drain; in 24 hours) documented in this encounter Medications at Time [...] mg DR tablet 1 CAP daily 03/27/2014 cephalexin (KEFLEX) 500 mg Capsule Take 1 capsule by mouth 4 times daily for 7 days. 28 capsule 11/16/2017 11/23/2017 nystatin (MYCOSTATIN) 100,000 unit/mL Suspension Take 5 mLs by mouth 4 times daily. Swish and spit. 60 mL 11/15/2017 11/30/2017 valACYclovir (VALTREX) 500 mg Tablet Take 1 tablet by mouth daily. 30 tablet 11/15/2017 11/30/2017 dexamethasone (DECADRON) 4 mg Tablet Take 1 tablet by mouth 2 times daily (with meals). 20 tablet 10/19/2017 02/26/2018 magnesium oxide (MAG-OX) 400 mg Tablet take [...] Progress Notes * Scooby Muñoz APRN - 11/20/2017 10:26 AM EDT Ms. Sandoval states that the drain output has tapered to between 5-20ml/day over the past week. She experienced one episode of leaking around the drain while asleep but has not noted this since. * Becki Oscar MD - 11/16/2017 3:32 PM EDT Images from the original note were not included. INTERVENTIONAL RADIOLOGY FOCUSED H&P and PRE-PROCEDURE NOTE: PCP: Trinh Coates MD Referring Physician: Doreen Mcgovern Planned Procedure: Drain check #1 Procedure Indication: Left breast drain displaced Presenting Diagnosis/ Complaint: Wendy Sandoval is a 52 y.o. female with a PMHx significant for HTN, and left breast cancer s/p bilateral mastectomy with tissue expanders (04/26/17). Multiple drainsand aspiration to left breast in IR for seromas, and infections last being an aspiration on 06/26/17 when 35ml was aspirated adjacent to the left breast implant. IR placed a left breast drain on 09/06, 320 cc mildly cloudy pale yellow fluid aspirated. Patient reports drain displaced with leaking around the skin entry site. Patient scheduled for drain check #1. Past Medical/Surgical History: Patient Active Problem List Diagnosis Code ??? Hypertension I10 ??? Depression F32.9 ??? Obstructive sleep apnea (adult) (pediatric) G47.33 ??? OA (osteoarthritis) M19.90 ??? Overweight(278.02) E66.3 ??? Hyperparathyroidism E21.3 ??? Malignant neoplasm of upper-outer quadrant of left breast in female, estrogen receptor lyjjhezzY84.412, Z17.0 ??? S/P breast reconstruction, bilateral Z98.890 ??? Surgery follow-up Z09 ??? Abdominal wound dehiscence T81.30XA ??? Hypokalemia E87.6 ??? Bacterial conjunctivitis H10.9 ??? Seroma of breast N64.89 Past Medical History: Diagnosis Date ??? Fibrocystic breast determined by biopsy ??? Hyperlipidemia ??? Hypertension ??? Impaired fasting glucose ??? Malignant neoplasm of upper-outer quadrant of left breast in female, estrogen receptor positive03/31/2017 ??? Obstructive sleep apnea on CPAP ??? Proteinuria Past Surgical History: Procedure Laterality Date ??? BREAST BIOPSY Right 11/01 ??? SECTION x 2 ??? HAND SURGERY Right ??? PRG EMG, LARYNX N/A 11/02/2015 FACIAL NERVE MONITORING, SETUP LARYNGEAL performed by Valentina Lucas MD at [facility] OR ??? PRO BREAST RECONSTRUC W FREE FLAP Bilateral 04/26/2017 @BREAST RECONSTRUCTION W/ FREE FLAP, SUSAN (WRVU 42.58) performed by Andre Gimenez MD at [facility] ??? PRO BREAST RECONSTRUC W TISS EXPANDR Bilateral 04/26/2017 BREAST RECONSTRUCTION, IMMEDIATE OR DELAYED, W/ TISSUE CUSTOMER SALES SPECIALIST, INCLUDING SUBSEQUENT EXPANSION (WRVU 18.5) performed by Andre Gimenez MD at [facility] OR ? ? PRO DEBRIDEMENT SUBCUTANEOUS TISSUE 20 SQCM/< 06/22/2017 DEBRIDEMENT SKIN AND SUBCU, BREAST (WRVU 1.01) performed by Andre Gimenez MD at [facility] OR ??? PRO EXPLORE PARATHYROID GLANDS N/A 11/02/2015 PARATHYROIDECTOMY OR EXPLORATION OF PARATHYROID(S) performed by Valentina Lucas MD at [facility] OR ? ? PRO FULL THICK GRFT TRUNK <20 SQCM Bilateral 04/26/2017 FTSG, FREE, DIR CLOSE DONOR SITE, TRUNK, 20 SQ CM OR LESS (WRVU 9.15) performed by Andre Gimenez MD at [facility] OR ??? PRO MASTECTOMY, SIMPLE, COMPLETE Bilateral 04/26/2017 MASTECTOMY, SIMPLE, COMPLETE-SUSAN (WRVU 15.85) performed by Jolie Menendez MD at [facility] OR ??? PRO PARTIAL REMOVAL OF RIB Bilateral 04/26/2017 EXCISION OF RIB, PARTIAL (WRVU 7.26) performed by Andre Gimenez MD at [facility] OR ??? PRO REMOVE ARMPITS LYMPH NODES COMPLT Left 04/26/2017 LYMPHADENECTOMY, AXILLARY, COMPLETE (WRVU 13.87) performed by Jolie Menendez MD at [facility] OR ??? PRO REVISE BREAST RECONSTRUCTION Left 06/22/2017 REVISION OF RECONSTRUCTED BREAST (WRVU 10.41) performed by Andre Gimenez MD at [facility] OR ??? PRO THYMECTOMY, TRANSCERVICAL N/A 11/02/2015 THYMECTOMY, TRANSCERVICAL APPROACH performed by Valentina Lucas MD at [facility] OR ??? SHOULDER SURGERY Left ??? UMBILICAL HERNIA REPAIR Medications: Current Outpatient Prescriptions on File Prior to Encounter Medication Sig Dispense Refill ??? cephalexin (KEFLEX) 500 mg Capsule Take 1 capsule by mouth 4 times daily for 7 days. 28 capsulePRN ??? nystatin (MYCOSTATIN) 100,000 unit/mL Suspension Take 5 mLs by mouth 4 times daily. Swish and spit. 60 mL 0 ??? valACYclovir (VALTREX) 500 mg Tablet Take 1 tablet by mouth daily. 30 tablet 0 ??? dexamethasone (DECADRON) 4 mg Tablet Take 1 tablet by mouth 2 times daily (with meals). 20 tablet 0 ??? losartan (COZAAR) 100 mg Tablet take 1 tablet by mouth once daily 0 ??? magnesium oxide (MAG-OX) 400 mg Tablet take 1 tablet by mouth twice a day 0 ??? oxyCODONE (ROXICODONE) 5 mg Tablet take 1 tablet by mouth every 4 hours if needed 0 ??? potassium chloride 20 mEq Tablet Sustained Release take 3 tablets by mouth daily 0 ??? promethazine (PHENERGAN) 25 mg Tablet take 1 tablet by mouth every 4 hours if needed 0 ??? [DISCONTINUED] cephalexin (KEFLEX) 500 mg Capsule 0 ??? omeprazole (PRILOSEC) 40 mg Capsule, Delayed Release(E.C.) Take 1 capsule by mouth daily. 90 capsule 11 ??? cholecalciferol, Vitamin D3, (VITAMIN D-3) 5,000 unit Tablet Take by mouth. ??? LORazepam (ATIVAN) 0.5 mg Tablet Take 1 tablet by mouth every 6 hours as needed for Anxiety. (Patient not taking: Reported on 11/15/2017) 30 tablet 0 ??? prochlorperazine (COMPAZINE) 10 mg Tablet Take 1 tablet by mouth every 6 hours as needed for Nausea. (Patient not taking: Reported on 11/15/2017) 30 tablet 0 ??? ondansetron (ZOFRAN) 4 mg Tablet Take 1 tablet by mouth every 8 hours as needed for Nausea. (Patient not taking: Reported on 11/15/2017) 20 tablet 0 ??? Lactobacillus (BACID) 0.5 mg (100 million cell) Tablet Take 1 tablet by mouth daily. 30 tablet 0 ??? atorvastatin (LIPITOR) 20 mg Tablet Take 1 tablet by mouth daily. 0 ??? triamcinolone (ARISTOCORT) 0.5 % Cream Apply topically 3 times daily. ??? acetaminophen (TYLENOL) 325 mg Tablet Take 2 tablets by mouth every 4 hours as needed for Pain.(Patient not taking: Reported on 11/15/2017) ??? DILTiazem (CARDIZEM CD) 240 mg Capsule, [...] ??? fluoxetine (PROZAC) 40 mg capsule daily. Current Facility-Administered Medications on File Prior to Encounter Medication Dose Route Frequency Provider Last Rate Last Dose ??? [] diphenhydrAMINE (BENADRYL) injection 25 mg 25 mg Intravenous Once Josias Barnett MD ??? [COMPLETED] PACLitaxel (TAXOL) 285 mg in dextrose 5% Non-PVC 547.5 mL chemo infusion 157.5 mg/m2/dose (Treatment Plan Recorded) Intravenous Once Sally Ren APRN Stopped at 11/15/17 1659 ??? [DISCONTINUED] heparin, porcine 100 unit/mL flush 500 Units 500 Units Intravenous Once PRN Josias Barnett MD ??? [DISCONTINUED] sodium chloride 0.9 % flush 5-20 mL 5-20 mL Intravenous Q1 Min PRN Josias Barnett MD 20 mL at 11/15/17 1108 ??? [DISCONTINUED] heparin, porcine 100 unit/mL flush 500 Units 500 Units Intravenous Once PRN Josias Barnett MD 500 Units at 11/15/17 1701 ??? [DISCONTINUED] sodium chloride 0.9 % flush 5-20 mL 5-20 mL Intravenous Q1 Min PRN Josias Barnett MD 20 mL at 11/15/17 1701 Allergies: Zoloft [sertraline] Social History and Habits: Social History Social History ??? Marital status: Spouse name: N/A ??? Number of children: N/A ??? Years of education: N/A Occupational History ??? Not on file. Social History Main Topics ??? Smoking status: Former Smoker ??? Smokeless tobacco: Never Used ??? Alcohol use Yes Comment: socially once a month ??? Drug use: No ??? Sexual activity: Not on file Other Topics Concern ??? Not on file Social History Narrative Significant Family History: Family History Problem Relation [...] Other 64 ??? Ovarian Cancer Other 55 Physical Examination: pending Labs: Lab Results Component Value Date WBC 7.6 11/15/2017 ANC 12.19 (H) 10/04/2017 HCT 30.1 (L) 11/15/2017 PLATELET 327 11/15/2017 BUN 13 11/15/2017 CREATININE 0.88 11/15/2017 ALKPHOS 111 (H) 11/15/2017 AST 19 11/15/2017 ALBUMIN 3.9 11/15/2017 BILITOT 0.3 11/15/2017 ALT 28 11/15/2017 PROT 6.7 11/15/2017 Imaging: Assessment/Plan: 52 y.o. female with a PMHx significant for HTN, and left breast cancer s/p bilateral mastectomy with tissue expanders (04/26/17). Multiple drains and aspiration to left breast in IR for seromas, and infections last being an aspiration on 06/26/17 when 35ml was aspirated adjacent to theleft breast implant. IR placed a left breast drain on 09/06, 320 cc mildly cloudy pale yellow fluid a spirated. Patient reports drain displaced with leaking around the skin entry site. Patient scheduled for drain check #1. Labs to be performed day of procedure: none Medication to STOP: none Sedation: fentanyl vs local Planned access site: pre-existing drain Position: supine Consent: Pending Becki Oscar MD 11/16/2017 * Agapito Schrader RN - 11/16/2017 2:41 PM EDT [facility] Name: WENDY SANDOVAL Date of : 1965 AGE 52 y.o. Address: [address] [place] [phone] (home) [phone] (work) Mobile: Telephone Information: Referring Provider: Doreen Mcgovern REASON FOR VISIT: Order Questions Question Answer Comment Where will study be performed? [facility] Reason for exam and clinical history: L Breast drain (09/06), pt reports drain displaced, was leaking around skin entry site Exam/Procedure requested: drain check #1 Is the patient ? Unknown Is the patient on anticoagulant / anitplatelet therapy ? No Date/time of procedure: Pertinent info from Pre-call (if any): Labs ordered: Med's stopped: COPY/PASTE Procedure Plan from provider's note, bottom of MD workup Allergies Allergen Reactions ??? Zoloft [Sertraline] PSORIASIS FLARE Pertinent PMH: Patient Active Problem List Diagnosis Code ??? Hypertension I10 ??? Depression F32.9 ??? Obstructive sleep apnea (adult) (pediatric) G47.33 ??? OA (osteoarthritis) M19.90 ??? Overweight(278.02) E66.3 ??? Hyperparathyroidism E21.3 ??? Malignant neoplasm of upper-outer quadrant of left breast in female, estrogen receptor xvixmvoxV74.412, Z17.0 ??? S/P breast reconstruction, bilateral Z98.890 ??? Surgery follow-up Z09 ??? Abdominal wound dehiscence T81.30XA ??? Hypokalemia E87.6 ??? Bacterial conjunctivitis H10.9 ??? Seroma of breast N64.89 Pertinent PSH: Past Surgical History: Procedure Laterality Date ??? BREAST BIOPSY Right 11/01 ??? SECTION x 2 ??? HAND SURGERY Right ??? PRG EMG, LARYNX N/A 11/02/2015 FACIAL NERVE MONITORING, SETUP LARYNGEAL performed by Valentina Lucas MD at [facility] OR ??? PRO BREAST RECONSTRUC W FREE FLAP Bilateral 04/26/2017 @BREAST RECONSTRUCTION W/ FREE FLAP, SUSAN (WRVU 42.58) [facility] ??? PRO BREAST RECONSTRUC W TISS EXPANDR Bilateral 04/26/2017 BREAST RECONSTRUCTION, IMMEDIATE OR DELAYED, W/ TISSUE CUSTOMER SALES SPECIALIST, INCLUDING SUBSEQUENT EXPANSION (WRVU 18.5) performed by Andre Gimenez MD at [facility] OR ? ? PRO DEBRIDEMENT SUBCUTANEOUS TISSUE 20 SQCM/< 06/22/2017 DEBRIDEMENT SKIN AND SUBCU, BREAST (WRVU 1.01) performed by Andre Gimenez MD at [facility] OR ??? PRO EXPLORE PARATHYROID GLANDS N/A 11/02/2015 PARATHYROIDECTOMY OR EXPLORATION OF PARATHYROID(S) performed by Valentina Lucas MD at [facility] OR ? ? PRO FULL THICK GRFT TRUNK <20 SQCM Bilateral 04/26/2017 FTSG, FREE, DIR CLOSE DONOR SITE, TRUNK, 20 SQ CM OR LESS (WRVU 9.15) performed by Andre Gimenez MD at [facility] OR ??? PRO MASTECTOMY, SIMPLE, COMPLETE Bilateral 04/26/2017 MASTECTOMY, SIMPLE, COMPLETE-SUSAN (WRVU 15.85) performed by Jolie Menendez MD at [facility] OR ??? PRO PARTIAL REMOVAL OF RIB Bilateral 04/26/2017 EXCISION OF RIB, PARTIAL (WRVU 7.26) performed by Andre Gimenez MD at [facility] OR ??? PRO REMOVE ARMPITS LYMPH NODES COMPLT Left 04/26/2017 LYMPHADENECTOMY, AXILLARY, COMPLETE (WRVU 13.87) performed by Jolie Menendez MD at [facility] OR ??? PRO REVISE BREAST RECONSTRUCTION Left 06/22/2017 REVISION OF RECONSTRUCTED BREAST (WRVU 10.41) performed by Andre Gimenez MD at [facility] OR ??? PRO THYMECTOMY, TRANSCERVICAL N/A 11/02/2015 THYMECTOMY, TRANSCERVICAL APPROACH performed by Valentina Lucas MD at [facility] OR ??? SHOULDER SURGERY Left ??? [...] R drain removed. Fentanyl 50 mcg IV? [id number] Left breast aspiration/ 30 ml Fentanyl 100 mg IV 07/03/[address] power-injectable port placement Clindamycin 900 mg IV, versed 3 mg IV, fentanyl 150 mcg IV 09/06/17: Left breast drain placement, 320 cc output, sent for culture Fentanyl 150 mcg, tolerated well 11/20/17 Sinogram L. Breast drain?? No meds/ no intervention ? Laboratory Results: Lab Results Component Value Date CREATININE 0.88 11/15/2017 Lab Results Component Value Date K 3.6 11/15/2017 Lab Results Component Value Date PLATELET 327 11/15/2017 Medications: Prior to Admission medications Medication Sig Start Date End Date Taking? Authorizing Provider cephalexin (KEFLEX) 500 mg Capsule Take 1 capsule by mouth 4 times daily for 7 days. 11/16/17 11/23/17 Jolene Azevedo APRN nystatin (MYCOSTATIN) 100,000 unit/mL Suspension Take 5 mLs by mouth 4 times daily. Swish and spit.11/15/17 Sally Ren APRN valACYclovir (VALTREX) 500 mg Tablet Take 1 tablet by mouth daily. 11/15/17 Sally Ren APRN dexamethasone (DECADRON) 4 mg Tablet Take 1 tablet by mouth 2 times daily (with meals). 10/19/17 Sally Ren APRN losartan (COZAAR) 100 mg Tablet take 1 tablet by mouth once daily 10/09/17 PROVIDER, HISTORICAL magnesium oxide (MAG-OX) 400 mg Tablet take 1 tablet by mouth twice a day 10/08/17 PROVIDER, HISTORICAL oxyCODONE (ROXICODONE) 5 mg Tablet take 1 tablet by mouth every 4 hours if needed 10/08/17 PROVIDER,HISTORICAL potassium chloride 20 mEq Tablet Sustained Release take 3 tablets by mouth daily 09/17/17 PROVIDER, HISTORICAL promethazine (PHENERGAN) 25 mg Tablet take 1 tablet by mouth every 4 hours if needed 10/08/17 PROVIDER, HISTORICAL cephalexin (KEFLEX) 500 mg Capsule 10/09/17 11/16/17 PROVIDER, HISTORICAL omeprazole (PRILOSEC) 40 mg Capsule, Delayed Release(E.C.) Take 1 capsule by mouth daily. 08/23/17 08/23/18 Gustavo Mota MD cholecalciferol, Vitamin D3, (VITAMIN D-3) 5,000 unit Tablet Take by mouth. PROVIDER, HISTORICAL LORazepam (ATIVAN) 0.5 mg Tablet Take 1 tablet by mouth every 6 hours as needed for Anxiety. Patient not taking: Reported on 11/15/2017 06/01/17 Sally Ren APRN prochlorperazine (COMPAZINE) 10 mg Tablet Take 1 tablet by mouth every 6 hours as needed for Nausea. Patient not taking: Reported on 11/15/2017 06/01/17 Sally Ren APRN ondansetron (ZOFRAN) 4 mg Tablet Take 1 tablet by mouth every 8 hours as needed for Nausea. Patient not taking: Reported on 11/15/2017 05/25/17 Jolene Azevedo APRN Lactobacillus (BACID) 0.5 mg (100 million cell) Tablet Take 1 tablet by mouth daily. 05/01/17 Alma Castillo PA atorvastatin (LIPITOR) 20 mg Tablet Take 1 tablet by mouth daily. 03/02/17 PROVIDER, HISTORICAL triamcinolone (ARISTOCORT) 0.5 % Cream Apply topically 3 times daily. PROVIDER, HISTORICAL acetaminophen (TYLENOL) 325 mg Tablet Take 2 tablets by mouth every 4 hours as needed for Pain. Patient not taking: Reported on 11/15/2017 11/03/15 Nathaly Saenz APRN DILTiazem (CARDIZEM CD) [...] 10/31/12 PROVIDER, HISTORICAL documented in this encounter Nursing Notes * Agapito Schrader RN - 11/20/2017 10:23 AM EDT To procedure room IR 2 via stretcher. Onto table in supine position. All monitors, O2, safety strapin place. Med's per protocol. documented in this encounter Plan of Treatment Upcoming Encounters Date Type Department Care Team (Late st Contact Info) Description 01/22/2024 10:30 AM EST Appointment Mammography/[place] [address] Ladi Mendosa MD [facility] HEMATOLOGY/[place] [address] 01/30/2024 11:30 AM EST Office Visit Dermatology at [address] [place] [phone] Nilda Luis MD [facility] DR [place] [address] 02/15/2024 9:30 AM EST [place] [id number] [place] [address] documented as of this encounter Procedures Procedure Name Priority Date/Time Associated Diagnosis Comments IR DRAIN CHECK/CHANGE/REMOVE Routine 11/20/2017 10:58 AM EDT Malignant neoplasm of left female breast, unspecified estrogen receptor status, unspecified site of breast documented in this encounter Results * IR Drain Check/Change/Remove (11/20/2017 10:58 AM EDT) Anatomical Region Laterality Modality Head X-Ray Angiograph y Impressions 12/27/2017 3:40 PM EST : ?? Drain within residual collection adjacent to left breast fish bin tender. Recommend: continue drain to bulb suction. ??Flush with 5 cc NS q12 h. ?? Re-check in 1 week. I, Dr. Dey, was present throughout the procedure. I was present during the intraservice time as documented by the IR Nurse. ?? Narrative 12/27/2017 3:40 PM EST IR PROCEDURE REPORT : ??Drain check INDICATION:Left breast cancer s/p bilateral mastectomy with tissue expanders (04/26/17). Multiple drains and aspiration to left breast in IR for seromas, and infections last being an aspiration on 06/26/17 when 35ml was aspirated adjacent to the left breast implant. IR placed left breast drain due to new fluid collection. ?? TECHNIQUE: Spot image obtained. ??Contrast injected, spot image obtained. ?? Patient tolerated the procedure well and there were no immediate complications. Contrast : ??5 cc Omnipaque 350. ??( 45 cc discarded) ??Fluoro time : ??1 min. ??EBL : ??0 cc. FINDINGS: Drain within curvilinear residual collection Marcos Dey MD IMG IR ORDERABLES documented in this encounter Visit Diagnoses Diagnosis Malignant neoplasm of left female breast, unspecified estrogen receptor status, unspecified site of breast documented in this encounter Care Teams Clean Rice Broker Relationship Specialty Start Date End Date Trinh Coates MD [address] [place] [address] PCP - General 01/11/10 documented as of this encounter
--- OUTSIDE RECORDS SUMMARY | 2023-09-07 11:30 | XMS_ITS | Encounter Summary ---
Author Organization [facility] [place] [address] Care Team Providers Care Digital Tech Name Role Phone Trinh Coates MD Primary Care Provider [phone] Encounter Details Date Type Department Care Team (Late st Contact Info) Description 11/14/2017 Telephone Hematology [place] [address] Corine Barron LGC [facility] HEMATOLOGY/[place] [address] Social History Tobacco Use Types Packs/Day Years [...] Encounter - Corine Barron LGC - 11/14/2017 3:38 PM EDT Left message asking Wendy to call me back to go over her genetic test results. documented in this encounter Plan of Treatment Upcoming Encounters Date Type Department Care Team (Late st Contact Info) Description 01/22/2024 10:30 AM EST Appointment Mammography/[place] [address] Ladi Mendosa MD [facility] HEMATOLOGY/[place] [address] 01/30/2024 11:30 AM EST Office Visit Dermatology at [place] [address] [place] [phone] Nilda Luis MD [facility] [address] [place] [address] 02/15/2024 9:30 AM EST [place] [address] [place] [address] documented as of this encounter Visit Diagnoses Not on filedocumented in this encounter Care Teams Digital Tech Relationship Specialty Start Date End Date Trinh Coates MD [facility] [address] [place] [address] PCP - General 01/11/10 documented as of this encounter
--- OUTSIDE RECORDS SUMMARY | 2023-09-07 11:30 | XMS_ITS | Encounter Summary ---
Author Organization [facility] [place] [address] Care Team Providers Care Barrow Worker Name Role Phone Trinh Coates MD Primary Care Provider [phone] Reason for Visit * Reason Comments Breast Cancer Chemotherapy * Treatment/Therapy Plan Authorization (Routine) - Closed Specialty Diagnoses / Procedures Referred By Diamante marin Referred To Contact Diagnoses Malignant neoplasm of upper-outer quadrant of left breast in female, estrogen receptor positive Procedures TC PACLITAXEL, 1MG, INJ TC PEGFILGRASTIM, 6MG, INJECTION Josias Barnett MD [facility] DR HEMATOLOGY/[place] [address] [facility] Hem Onc [address] [place] [address] Referral ID Status Reason Start Date Expiration Date Visits Re quested Visits Authorized [id number] Closed 10/01/2017 10/01/2018 21 21 Encounter Details Date Type Department Care Team (Latest Contact Info) Description 11/15/2017 10:06 AM EDT - 11/15/2017 11:59 PM EDT Hospital Encounter Hematology [place] [address] Malignant neoplasm of upper-outer quadrant [...] Sign Reading Time Taken Comments Blood Pressure 149/85 11/15/2017 4:20 PM EDT Pulse 87 11/15/2017 4:20 PM EDT Temperature 36.5 ??C (97.7 ??F) 11/15/2017 4:20 PM ED T Respiratory Rate 18 11/15/2017 4:20 PM EDT Oxygen Saturation 97% 11/15/2017 4:20 PM EDT Inhaled Oxygen Concentration - - [...] DR tablet 1 CAP daily 03/27/2014 024 nystatin (MYCOSTATIN) 100,000 unit/mL Suspension Take 5 [...] as of this encounter Progress Notes * Cornelia Rosales RN - 11/15/2017 5:59 PM EDT Patient Name: Wendy Sandoval Patient Age: 52 y.o. Birthdate: 1965 Admit date: 11/15/2017 Attending Physician: No att. providers found TIME TREATMENT STARTED: 1216 TIME TREATMENT ENDED: 1701 Wendy Sandoval, 52 y.o. female with diagnosis of left breast cancer is here for chemotherapy infusion of taxol. PROTOCOL: no CYCLE: 4 DAY: 1 S: Pt. offers no complaints at this time. O: Chemotherapy orders independently verified for correct drug name, route and dosage per patient'sheight, weight and BSA by Glenroy BURGER and onsite pharmacist REACTIONS (DESCRIPTION, TIME, INTERVENTION AND EFFECTIVENESS) none A: Pt. Tolerated treatment well. Wendy Sandoval confirms that all questions and issues have beenaddressed. P: Return to clinic as scheduled. documented in this encounter Plan of Treatment Upcoming Encounters Date Type Department Care Team (Late st Contact Info) Description 01/22/2024 10:30 AM EST Appointment Mammography/DXA at [place] [phone] Ladi Mendosa MD [facility] DR HEMATOLOGY/[place] [address] 01/30/2024 11:30 AM EST Office Visit Dermatology at [address] [address] Nilda Luis MD [facility] [address] [place] [address] 02/15/2024 9:30 AM EST [place] [address] [place] [address] documented as of this encounter Results * (ABNORMAL) Comprehensive metabolic panel (non-fasting) (11/15/2017 10:45 AM EDT) Glucose Lvl 108 65 - 199 mg/dL [facility] Comment:Diabetes: >=200 mg/d L plus symptoms BUN 13 8 - 18 mg/dL [facility] Creatinine 0.88 0.70 - 1.20 mg/dL [facility] Sodium 143 135 - 145 mmol/L [facility] Potassium 3.6 3.5 - 5.0 mmol/L [facility] Comment: Please note: ??Patients with WBC >100,000 may have falsely elevated Potassium levels. ??For accurate Potassium quantification in these patients send serum separator tube (gold top) for subsequent determinations. ??Contact the Clinical Chemistry Laboratory if there are any questions. Chloride 105 98 - 107 mmol/L [facility] CO2 23 22 - 31 mmol/L [facility] Anion Gap 15 5 - 15 mmol/L [facility] Calcium 8.5 8.5 - 10.5 mg/dL [facility] Total Protein 6.7 6.1 - 8.0 gm/dL [facility] Albumin 3.9 3.2 - 5.2 gm/dL [facility] AST 19 0 - 30 unit/L [facility] ALT 28 0 - 30 unit/L [facility] Alk Phos 111(H) 40 - 104 unit/L [facility] Total Bilirubin 0.3 0.2 - 1.3 mg/dL [facility] Estimated GFR 74 >=60 mL/min/1. 73 m?? [facility] Comment: The eGFR was calculated using the CKD-EPI equation. As with all creatinine based estimates of kidney function, eGFR values calculated with the CKD-EPI equation are not accurate in patients with acute kidney failure, extremes of body mass or the acutely ill. http://[email or web address] eGFR 86 >=60 mL/min/1. 73 m?? [facility] Comment: The eGFR was calculated using the CKD-EPI equation. As with all creatinine based estimates of kidney function, eGFR values calculated with the CKD-EPI equation are not accurate in patients with acute kidney failure, extremes of body mass or the acutely ill. [email or web address] Blood specimen (specimen) 11/15/2017 10:45 AM EDT 11/15/2017 11:32 AM EDT Narrative Resulting Agency Comment Spec In Lab Josias Barnett MD CHEMISTRY ORDERABLES [facility] [place] [address] documented in this encounter Visit Diagnoses Diagnosis Malignant neoplasm of upper-outer quadrant of left breast in female, estrogen receptor positive documented in this encounter Administered Medications Inactive Administered Medications - up to 3 most recent administrations Medication Order MAR Action Action Date Dose Rate Site dexamethasone (DECADRON) injection 10 mg 10 mg, Intravenous, ONCE, 1 dose, On Sosa 11/15/17 at 1245, Administer 30 minutes prior to PACLitaxel Given 11/15/2017 1:12 PM EDT 10 mg diphenhydrAMINE (BENADRYL) capsule 25 mg 25 mg, Oral, ONCE, 1 dose, On Sosa 11/15/17 at 1245, Routine Given 11/15/2017 1:09 PM EDT 25 mg famotidine (PEPCID) injection 20 mg 20 mg, Intravenous, ONCE, 1 dose, On Sosa 11/15/17 at 1245, Administer 30 minutes prior to PACLitaxel Given 11/15/2017 1:11 PM EDT 20 mg heparin, porcine 100 unit/mL flush 500 Units 500 Units, Intravenous, ONCE PRN, Starting on Sosa 11/15/17 at 1226, Until Sun11/16/17 at 0441, Line Care, Refer to Intravenous (IV) Procedure: Accessing Implanted Vascular Access Devices (424) procedure and/or Intravenous (IV) Job Aid: Adult Flushing & Catheter Care (1470) job aid for additional information regarding guidelines and administration., Routine Given 11/15/2017 5:01 PM EDT 500 Units ondansetron (ZOFRAN) injection 8 mg 8 mg, Intravenous, ONCE, 1 dose, On Sosa 11/15/17 at 1245 Given 11/15/2017 1:16 PM EDT 8 mg PACLitaxel (TAXOL) 285 mg in dextrose 5% Non-PVC 547.5 mL chemo infusion 285 mg (rounded from 285.075 mg = 157.5 mg/m2/dose ? 1.81 m2 Treatment Plan BSA from Recorded weight), Intravenous, ONCE, 1 dose, On Sosa 11/15/17 at 1345, Administer over 3 Hours, Warning Vesicant/Irritant Medication New Bag 11/15/2017 1:47 PM EDT 285 mg 182.5 mL/hr sodium chloride 0.9 % flush 5-20 mL 5-20 mL, Intravenous, EVERY 1 MIN PRN, Starting on Sosa 11/15/17 at 1226, Until Sun11/16/17 at 0441, Line Care, Flush pertains to all indwelling lines. Flush per protocol found in the job aid using the link provided on this medication record. Refer to Intravenous (IV) Job Aid: Adult Flushing & Catheter Care (8510) job aid for additional information regarding guidelines and administration., Routine Given 11/15/2017 5:01 PM EDT 20 mLs documented in this encounter Care Teams Barrow Worker Relationship Specialty Start Date End Date Trinh Coates MD [facility] [address] [place] [address] PCP - General 01/11/10 documented as of this encounter
--- OUTSIDE RECORDS SUMMARY | 2023-09-07 11:30 | XMS_ITS | Encounter Summary ---
Author Organization [facility] Address [facility] [place] [address] Care Team Providers Care Etiologist Name Role Phone Trinh Coates MD Primary Care Provider [phone] Encounter Details Date Type Department Care Team (Latest Contact Info) Description 11/30/2017 10:55 AM EDT Laboratory Appointment Lab [address] [place] [phone] Malignant neoplasm of upper-outer quadrant of left [...] 01/22/2024 10:30 AM EST Appointment Mammography/[place] [phone] Ladi Mendosa MD [facility] HEMATOLOGY/[place] [address] 01/30/2024 11:30 AM EST Office Visit Dermatology at [facility] [address] [phone] Nilda Luis MD [facility] [address] [place] [address] 02/15/2024 9:30 AM EST [place]ment [place] [phone] [place] [address] documented as of this encounter Procedures Procedure Name Priority Date/Time Associated Diagnosis Comments APTT Routine 11/30/2017 10:29 AM EDT Malignant neoplasm of upper-outer quadrant of left breast in female, estrogen receptor positive PROTHROMBIN TIME Routine 11/30/2017 10:2 9 AM EDT Malignant neoplasm of upper-outer quadrant of left breast in female, estrogen receptor positive documented in this encounter Results * APTT (11/30/2017 10:29 AM EDT) PTT 33 25 - 37 sec [facility] Comment: The PTT is NOT appropriate for heparin monitoring. Use the Anti-Xa level for heparin monitoring (HEP UFH) or LMWH monitoring (HEP LMW). A PTT less than 37 seconds generally indicates adequate hemostasis. Blood specimen (specimen) 11/30/2017 10:29 AM EDT 11/30/2017 10:45 AM EDT Narrative Resulting Agency Comment Spec In Lab Jolene Azevedo APRN HEMATOLOGY ORDERABLE S [facility] [place] [address] * Prothrombin Time (11/30/2017 10:29 AM EDT) PT 12.3 9.4 - 12.5 sec [facility] INR 1.1 [facility] Comment: An INR <2.0 indicates [...] Agency Comment Spec In Lab Jolene Azevedo ORDER DESK CLERK HEMATOLOGY ORDERABLE S Performing Organization Address City/State/[facility] Co de Phone Number [facility] [place] [address] documented in this encounter Visit Diagnoses Diagnosis Malignant neoplasm of upper-outer quadrant of left breast in female, estrogen receptor positive documented in this encounter Care Teams Etiologist Relationship Specialty Start Date End Date Trinh Coates MD [address] [place] [address] PCP - General 01/11/10 documented as of this encounter
--- OUTSIDE RECORDS SUMMARY | 2023-09-07 11:30 | XMS_ITS | Encounter Summary ---
Author Organization [facility] Address [facility] [place] [address] Care Team Providers Care Property Staff Accountant Name Role Phone Trinh Coates MD Primary Care Provider [phone] Encounter Details Date Type Department Care Team (Late st Contact Info) Description 10/04/2017 8:30 AM EDT Office Visit Hematology [place] [address] Josias Barnett MD [facility] [place]ATOLOGY/[place] [address] Malignant neoplasm of upper-outer quadrant of left [...] Sign Reading Time Taken Comments Blood Pressure 159/92 10/04/2017 8:37 AM EDT Pulse 90 10/04/2017 8:37 AM EDT Temperature 36.7 ??C (98.1 ??F) 10/04/2017 8:37 AM ED T Respiratory Rate 17 10/04/2017 8:37 AM EDT Oxygen Saturation 100% 10/04/2017 8:37 AM EDT Inhaled Oxygen Concentration - - Weight 76.5 kg (168 lb 9.6 oz) 10/04/2017 8:37 A M EDT Height 157 cm (5' 1.81) 10/04/2017 8:37 AM EDT Body Mass Index 31.03 10/04/2017 8:37 AM EDT documented in this encounter Progress Notes * Josias Barnett MD - 10/04/2017 8:30 AM EDT Breast cancer treatment visit HPI: Diagnosis of Invasive ductal carcinoma, left breast, in March 2017. A. 2.0 cm cancer, high-grade, grade 3. ER/SC +++, HER-2/pat negative, 4/18 nodes (1/18 additional [...] also colon ca on her mother's side. ?? Wendy returns in follow-up, for cycle 3 of adjuvant chemotherapy. She did have moderately significant nausea after cycle 1, we added demands and her nausea was somewhat better although still remained moderately significant. Symptoms began about a 2 or 3 in last few days. She did use Compazine which has been helpful. She has had no episodes of emesis. She has had some increasing heartburn as well over the last month to 6 weeks since initiation of chemotherapy. Finally she did have moderate significant arthralgias that began about take 3 or 4 this occurred cycle 1 but they were moderately worse with cycle 2. Interval Hx/ROS: Here today to start adjuvant taxol, having completed her dose-dense Johnathon + Cytoxan x 4. Reports no problems with daily HAs, cough, SOB, fevers, bleeding, nausea/emesis, change in bowel orbladder function. ROS otherwise neg. Exam Most Recent Vitals: 10/04/17 0837 BP: (!) 159/92 Pulse: 90 Resp: 17 Temp: 36.7 ??C (98.1 ??F) SpO2: 100% PERRL, EOMi, sclera nonicteric Oropharynx benign No BLANCA Mediport site nontender and without e/o infection Chest clear to A and P CV: RRR, no m/ Abd: No HSM, NT, +BS Ext: no c.c.e Neuro grossly non-focal Recent Labs 10/04/17 0730 09/20/17 0900 09/13/17 1242 09/06/17 1000 08/23/17 1035 08/09/17 1020 08/03/17 0915 07/05/17 0844 WBC 15.8* 12.7* 17.1* 19.1* 16.3* 11.4* 2.6* 13.2* NEUTROABS -- 8.82* 12.25* -- 11.42* 7.02* 0.42* 9.66* HGB 9.7* 10.4* 10.8* 11.4* 11.7 12.9 12.8 12.2 HCT 29.6* 31.7* 32.6* 33.0* 35.3* 38.7 38.9 36.9 PLATELET 247 533* 573* 251 205 486* 294 414* Ref. Range 10/04/2017 Sodium Latest Ref Range: 135 - 145 mmol/L 140 Potassium Latest Ref Range: 3.5 - 5.0 mmol/L 3.6 Chloride Latest Ref Range: 98 - 107 mmol/L 102 CO2 Latest Ref Range: 22 - 31 mmol/L 24 Anion Gap Latest Ref Range: 5 - 15 mmol/L 14 BUN Latest Ref Range: 8 - 18 mg/dL 15 Creatinine Latest Ref Range: 0.70 - 1.20 mg/dL 0.97 eGFR Latest Ref Range: >=60 mL/min/1.73 m?? 66 eGFR Latest Ref Range: >=60 mL/min/1.73 m?? 77 Glucose Lvl Latest Ref Range: 65 - 199 mg/dL 104 Calcium Latest Ref Range: 8.5 - 10.5 mg/dL 8.5 Total Protein Latest Ref Range: 6.1 - 8.0 gm/dL 6.7 Albumin Latest Ref Range: 3.2 - 5.2 gm/dL 3.8 Total Bilirubin Latest Ref Range: 0.2 - 1.3 mg/dL 0.2 Alk Phos Latest Ref Range: 40 - 104 unit/L 122 (H) AST Latest Ref Range: 0 - 30 unit/L 9 ALT Latest Ref Range: 0 - 30 unit/L 15 Assessment and Plan: 52 yo diagnosed last Mar with a high-grade, node-positive left breast cancer. She is s/p bilateral mastectomy. Has been on adjuvant chemo since 07/20/17. Today transitioning to dose-dense taxol I discussed the differences in side effects with taxol. She's likely to experience less nausea but more aches and pains associated with the Neulasta. Prepared to proceed. Labs ok for treatment. documented in this encounter Plan of Treatment Upcoming Encounters Date Type Department Care Team (Late st Contact Info) Description 01/22/2024 10:30 AM EST Appointment Mammography/[place] [address] Ladi Mendosa MD [facility] DR HEMATOLOGY/ONCOLOGY [place], [place] [phone] 01/30/2024 11:30 AM EST Office Visit Dermatology at [facility] [address] [place] [phone] Nilda Luis MD [facility] [address] AG[place] [address] 02/15/2024 9:30 AM EST Appointment [place] [address] [place] [address] documented as of this encounter Visit Diagnoses Diagnosis Malignant neoplasm of upper-outer quadrant of left breast in female, estrogen receptor positive documented in this encounter Care Teams Property Staff Accountant Relationship Specialty Start Date End Date Trinh Coates MD [facility] [address] [facility] [address] [place] [address] PCP - General 01/11/10 documented as of this encounter
--- OUTSIDE RECORDS SUMMARY | 2023-09-07 11:30 | XMS_ITS | Encounter Summary ---
Author Organization [facility] [place] [address] Care Team Providers Care Gas Reverser Name Role Phone Trinh Coates MD Primary Care Provider [phone] Reason for Visit * Treatment/Therapy Plan Authorization (Routine) - Closed Specialty Diagnoses / Procedures Referred By Diamante marin Referred To Contact Diagnoses Malignant neoplasm of upper-outer quadrant of left breast in female, estrogen receptor positive Procedures TC PACLITAXEL, 1MG, INJ TC PEGFILGRASTIM, 6MG, INJECTION Josias Barnett MD [facility] DR HEMATOLOGY/[place] [address] [facility] [address] [place] [address] Referral ID Status Reason Start Date Expiration Date Visits Re quested Visits Authorized [id number] Closed 10/01/2017 10/01/2018 21 21 Encounter Details Date Type Department Care Team (Latest Contact Info) Description 11/01/2017 10:00 AM EDT - 11/01/2017 10:16 AM EDT Hospital Encounter [place]ematology [place] [address] Malignant neoplasm of upper-outer quadrant [...] DR tablet 1 CAP daily 03/27/2014 024 dexamethasone (DECADRON) 4 mg Tablet Take 1 [...] as of this encounter Progress Notes * Jimbo Freire RN - 11/01/2017 10:37 AM EDT Patient Name: Wendy Sandoval Patient Age: 52 y.o. Birthdate: 1965 Admit date: 11/01/2017 Attending Physician: No att. providers found Access visit. See MAR and/or doc flowsheet documented in this encounter Plan of Treatment Upcoming Encounters Date Type Department Care Team (Late st Contact Info) Description 01/22/2024 10:30 AM EST Appointment Mammography/[place] [address] Randy Mendosa MD [facility] HEMATOLOGY/[place] [address] 01/30/2024 11:30 AM EST Office Visit Dermatology at [address] [place] [address] Nilda Luis MD [facility] DR LIDIA [place] [address] 02/15/2024 9:30 AM EST [place] [phone] [place] [address] documented as of this encounter Procedures Procedure Name Priority Date/Time Associated Diagnosis Comments HEMOGRAM STAT 11/01/2017 10:30 AM EDT Malignant neoplasm of upper-outer quadrant of left breast in female, estrogen receptor positive DIFFERENTIAL, AUTOMATED STAT 11/01/2017 10:30 AM EDT Malignant neoplasm of upper-outer quadrant of left breast in female, estrogen receptor positive CBC (WITH DIFF) STAT 11/01/2017 10:30 AM EDT Malignant neoplasm of upper-outer quadrant of left breast in female, estrogen receptor positive COMPREHENSIVE METABOLIC PANEL (NON-FASTING) STAT 11/01/2017 10:30 AM EDT Malignant neoplasm of upper-outer quadrant of left breast in female, estrogen receptor positive documented in this encounter Results * (ABNORMAL) Differential, Automated (11/01/2017 10:30 AM EDT) Neutrophils % 69.4 % [facility] Neutr Abs (ANC) 7.00(H) 1.70 - 6.10 x10(3)/mc L [facility] Lymphocytes % 8.6 % [facility] Lymphocytes Abs 0.9 0.9 - 3.2 x10(3)/mc L [facility] Monocytes % 12.7 % [facility] Monocyte Abs 1.3(H) 0.3 - 0.9 x10(3)/mc L [facility] Eosinophils % 7.9 % [facility] Eosinophils Abs 0.8(H) 0.0 - 0.4 x10(3)/[facility] Basophils % 0.7 % [facility] Basophils Abs 0.1 0.0 - 0.1 x10(3)/[facility] Immature Gran % 0.70 % [facility] Comment: Immature granulocytes(IG's)percentage and absolute count will include metamyelocytes, myelocytes, and promyelocytes. Blood smears from CBCs yielding IG's will be scanned manually for concordance. If this scan disagrees with the automated IG or if promyelocytes are noted, a manual differential will be performed. Nova Gran Abs 0.07(H) 0.00 - 0.04 x10(3)/[facility] Blood specimen (specimen) 11/01/2017 10:30 AM EDT 11/01/2017 11:03 AM EDT Narrative Resulting Agency Comment Spec In Lab Josias Barnett MD HEMATOLOGY ORDERABLE S [facility] [place] [place] [address] * (ABNORMAL) Hemogram (11/01/2017 10:30 AM EDT) WBC 10.1(H) 4.0 - 9.5 x10(3)/[facility] RBC 3.01(L) 4.00 - 5.21 x10(6)/[facility] Hemoglobin 9.6(L) 11.7 - 15.5 gm/dL [facility] Hematocrit 29.6(L) 35.7 - 45.8 % [facility] MCV 98.3(H) 82.6 - 94.4 fL [facility] MCH 31.9 27.1 - 32.0 pg [facility] MCHC 32.4 31.7 - 35.0 gm/dL [facility] Platelets 359(H) 145 - 357 x10(3)/[facility] RDWSD 64.3(H) 37.0 - 46.0 fL [facility] RDWCV 17.7(H) 11.5 - 14.1 % [facility] MPV 9.0 7.6 - 12.9 fL [facility] nRBC % Auto 0.0 % [facility] nRBC Abs Auto 0.000 0.000 - 0.000 x10(3)/[facility] Blood specimen (specimen) 11/01/2017 10:30 AM EDT 11/01/2017 11:03 AM EDT Narrative Resulting Agency Comment Spec In Lab Josias Barnett MD HEMATOLOGY ORDERABLE S Performing Organization Address City/State/[facility] Co de Phone Number [facility] [place] [address] * Comprehensive metabolic panel (non-fasting) (11/01/2017 10:30 AM EDT) Glucose Lvl 131 65 - 199 mg/dL [facility] Comment:Diabetes: >=200 mg/d L plus symptoms BUN 16 8 - 18 mg/dL [facility] Creatinine 0.89 0.70 - 1.20 mg/dL [facility] Sodium 140 135 - 145 mmol/L [facility] Potassium 3.7 3.5 - 5.0 mmol/L [facility] Comment: Please note: ??Patients with WBC >100,000 may have falsely elevated Potassium levels. ??For accurate Potassium quantification in these patients send serum separator tube (gold top) for subsequent determinations. ??Contact the Clinical Chemistry Laboratory if there are any questions. Chloride 101 98 - 107 mmol/L [facility] CO2 25 22 - 31 mmol/L [facility] Anion Gap 14 5 - 15 mmol/L [facility] Calcium 9.3 8.5 - 10.5 mg/dL [facility] Total Protein 6.4 6.1 - 8.0 gm/dL [facility] Albumin 3.5 3.2 - 5.2 gm/dL [facility] AST 15 0 - 30 unit/L [facility] ALT 27 0 - 30 unit/L [facility] Alk Phos 86 40 - 104 unit/L [facility] Total Bilirubin 0.5 0.2 - 1.3 mg/dL [facility] Estimated GFR 73 >=60 mL/min/1. 73 m?? [facility] Comment: The eGFR was calculated using the CKD-EPI equation. As with all creatinine based estimates of kidney function, eGFR values calculated with the CKD-EPI equation are not accurate in patients with acute kidney failure, extremes of body mass or the acutely ill. [email or web address] Live/[facility] TULSAnkf eGFR 85 >=60 mL/min/1. 73 m?? [facility] Comment: The eGFR was calculated using the CKD-EPI equation. As with all creatinine based estimates of kidney function, eGFR values calculated with the CKD-EPI equation are not accurate in patients with acute kidney failure, extremes of body mass or the acutely ill. [email or web address] [email or web address] Blood specimen (specimen) 11/01/2017 10:30 AM EDT 11/01/2017 11:03 AM EDT Narrative Resulting Agency Comment Spec In Lab Josias Barnett MD CHEMISTRY ORDERABLES [facility] [place] [address] documented in this encounter Visit Diagnoses Diagnosis [...] MIN PRN, Starting on Sosa 11/01/17 at 1022, Until Sun11/02/17 at 0442, Line Care, Flush pertains to all indwelling lines. Flush per protocol found in the job aid using the link provided on this medication record. Refer to Intravenous (IV) Job Aid: Adult Flushing & Catheter Care (9954) job aid for additional information regarding guidelines and administration., Routine Given 11/01/2017 10:35 AM EDT 20 mLs documented in this encounter Care Teams Gas Reverser Relationship Specialty Start Date End Date Trinh Coates MD [facility] [address] [place] [address] PCP - General 01/11/10 documented as of this encounter
--- OUTSIDE RECORDS SUMMARY | 2023-09-07 11:30 | XMS_ITS | Encounter Summary ---
Author Organization [facility] [place] [address] Care Team Providers Care Sole Leveling Machine Operator Name Role Phone Trinh Coates MD Primary Care Provider [phone] Reason for Visit * Treatment/Therapy Plan Authorization (Routine) - Closed Specialty Diagnoses / Procedures Referred By Diamante marin Referred To Contact Diagnoses Malignant neoplasm of upper-outer quadrant of left breast in female, estrogen receptor positive Procedures TC PACLITAXEL, 1MG, INJ TC PEGFILGRASTIM, 6MG, INJECTION Josias Barnett MD [facility] [address] HEMATOLOGY/[place] [address] [facility] [address] [place] [address] Referral ID Status Reason Start Date Expiration Date Visits Re quested Visits Authorized [id number] Closed 10/01/2017 10/01/2018 21 21 Encounter Details Date Type Department Care Team (Latest Contact Info) Description 11/15/2017 10:05 AM EDT Hospital Encounter Hematology [place] [address] Malignant neoplasm of upper-outer quadrant [...] as of this encounter Progress Notes * Melodie Beckwith, RN - 11/15/2017 11:09 AM EDT Patient Name: Wendy Sandoval Patient Age: 52 y.o. Birthdate: 1965 Admit date: 11/15/2017 Attending Physician: No att. providers found Access visit. See MAR and/or flowsheet. documented in this encounter Plan of Treatment Upcoming Encounters Date Type Department Care Team (Late st Contact Info) Description 01/22/2024 10:30 AM EST Appointment Mammography/DXA at [facility] [place] [address] Ladi Mendosa MD [facility] HEMATOLOGY/[place] [address] 01/30/2024 11:30 AM EST Office Visit Dermatology at [facility] [address] [place] [phone] Nilda Luis MD [facility] [address] [place] [address] 02/15/2024 9:30 AM EST Appointment [place] [phone] [place] [address] documented as of this encounter Procedures Procedure Name Priority Date/Time Associated Diagnosis Comments HEMOGRAM STAT 11/15/2017 10:45 AM EDT Malignant neoplasm of upper-outer quadrant of left breast in female, estrogen receptor positive DIFFERENTIAL, AUTOMATED STAT 11/15/2017 10:45 AM EDT Malignant neoplasm of upper-outer quadrant of left breast in female, estrogen receptor positive CBC (WITH DIFF) STAT 11/15/2017 10:45 AM EDT Malignant neoplasm of upper-outer quadrant of left breast in female, estrogen receptor positive COMPREHENSIVE METABOLIC PANEL (NON-FASTING) STAT 11/15/2017 10:45 AM EDT Malignant neoplasm of upper-outer quadrant of left breast in female, estrogen receptor positive documented in this encounter Results * (ABNORMAL) Differential, Automated (11/15/2017 10:45 AM EDT) Neutrophils % 64.2 % [facility] Neutr Abs (ANC) 4.89 1.70 - 6.10 x10(3)/mc L [facility] Lymphocytes % 11.2 % [facility] Lymphocytes Abs 0.8(L) 0.9 - 3.2 x10(3)/mc L [facility] Monocytes % 16.8 % [facility] Monocyte Abs 1.3(H) 0.3 - 0.9 x10(3)/mc L [facility] Eosinophils % 5.4 % [facility] Eosinophils Abs 0.4 0.0 - 0.4 x10(3)/[facility] Basophils % 1.4 % [facility] Basophils Abs 0.1 0.0 - 0.1 x10(3)/[facility] Immature Gran % 1.00 % [facility] Comment: Immature granulocytes(IG's)percentage and absolute count will include metamyelocytes, myelocytes, and promyelocytes. Blood smears from CBCs yielding IG's will be scanned manually for concordance. If this scan disagrees with the automated IG or if promyelocytes are noted, a manual differential will be performed. Nova Gran Abs 0.08(H) 0.00 - 0.04 x10(3)/[facility] Blood specimen (specimen) 11/15/2017 10:45 AM EDT 11/15/2017 11:32 AM EDT Narrative Resulting Agency Comment Spec In Lab Josias Barnett MD HEMATOLOGY ORDERABLE S [facility] [place] [address] * (ABNORMAL) Hemogram (11/15/2017 10:45 AM EDT) WBC 7.6 4.0 - 9.5 x10(3)/[facility] RBC 3.06(L) 4.00 - 5.21 x10(6)/[facility] Hemoglobin 9.7(L) 11.7 - 15.5 gm/dL [facility] Hematocrit 30.1(L) 35.7 - 45.8 % [facility] MCV 98.4(H) 82.6 - 94.4 fL [facility] MCH 31.7 27.1 - 32.0 pg [facility] MCHC 32.2 31.7 - 35.0 gm/dL [facility] Platelets 327 145 - 357 x10(3)/[facility] RDWSD 56.2(H) 37.0 - 46.0 fL [facility] RDWCV 15.6(H) 11.5 - 14.1 % [facility] MPV 8.8 7.6 - 12.9 fL [facility] nRBC % Auto 0.0 % [facility] nRBC Abs Auto 0.000 0.000 - 0.000 x10(3)/mcL [facility] Blood specimen (specimen) 11/15/2017 10:45 AM EDT 11/15/2017 11:32 AM EDT Narrative Resulting Agency Comment Spec In Lab Josias Barnett MD HEMATOLOGY ORDERABLE S [facility] [place] [address] * (ABNORMAL) Comprehensive metabolic panel (non-fasting) (11/15/2017 10:45 AM EDT) Glucose Lvl 108 65 - 199 mg/dL [facility] Comment:Diabetes: >=200 mg/d L plus symptoms BUN 13 8 - 18 mg/dL [facility] Creatinine 0.88 0.70 - 1.20 mg/dL [facility] Sodium 143 135 - 145 mmol/L [facility] Potassium 3.6 3.5 - 5.0 mmol/L [facility] Comment: Please note: ??Patients with WBC >100,000 may have falsely elevated Potassium levels. ??For accurate Potassium quantification in these patients send serum separator tube (gold top) for subsequent determinations. ??Contact the Clinical Chemistry Laboratory if there are any questions. Chloride 105 98 - 107 mmol/L [facility] CO2 23 22 - 31 mmol/L [facility] Anion Gap 15 5 - 15 mmol/L [facility] Calcium 8.5 8.5 - 10.5 mg/dL [facility] Total Protein 6.7 6.1 - 8.0 gm/dL [facility] Albumin 3.9 3.2 - 5.2 gm/dL [facility] AST 19 0 - 30 unit/L [facility] ALT 28 0 - 30 unit/L [facility] Alk Phos 111(H) 40 - 104 unit/L [facility] Total Bilirubin 0.3 0.2 - 1.3 mg/dL [facility] Estimated GFR 74 >=60 mL/min/1. 73 m?? [facility] Comment: The eGFR was calculated using the CKD-EPI equation. As with all creatinine based estimates of kidney function, eGFR values calculated with the CKD-EPI equation are not accurate in patients with acute kidney failure, extremes of body mass or the acutely ill. http://[employer]/[facility]WTONnkf eGFR 86 >=60 mL/min/1. 73 m?? [facility] Comment: The eGFR was calculated using the CKD-EPI equation. As with all creatinine based estimates of kidney function, eGFR values calculated with the CKD-EPI equation are not accurate in patients with acute kidney failure, extremes of body mass or the acutely ill. [email or web address]/[facility]ONnkf Blood specimen (specimen) 11/15/2017 10:45 AM EDT 11/15/2017 11:32 AM EDT Narrative Resulting Agency Comment Spec In Lab Josias Barnett MD CHEMISTRY ORDERABLES Performing Organization Address City/State/[facility] Co de Phone Number [facility] [place] [address] documented in this encounter Visit Diagnoses Diagnosis [...] MIN PRN, Starting on Sosa 11/15/17 at 1012, Until 11/16/17 at 0441, Line Care, Flush pertains to all indwelling lines. Flush per protocol found in the job aid using the link provided on this medication record. Refer to Intravenous (IV) Job Aid: Adult Flushing & Catheter Care (7317) job aid for additional information regarding guidelines and administration., Routine Given 11/15/2017 11:08 AM EDT 20 mLs documented in this encounter Care Teams Sole Leveling Machine Operator Relationship Specialty Start Date End Date Trinh Coates MD [address] [place] [address] PCP - General 01/11/10 documented as of this encounter
--- OUTSIDE RECORDS SUMMARY | 2023-09-07 11:30 | XMS_ITS | Encounter Summary ---
Author Organization [facility] Address [facility] [place] [address] Care Team Providers Care Fender Finisher Name Role Phone Trinh Coates MD Primary Care Provider [phone] Reason for Visit * Reason Comments Follow-up Encounter Details Date Type Department Care Team (Late st Contact Info) Description 11/15/2017 11:00 AM EDT Office Visit Hematology [place] [address] Sally Ren APRN [facility] [address] Malignant neoplasm of upper-outer quadrant of left [...] Sign Reading Time Taken Comments Blood Pressure 175/97 11/15/2017 11:06 AM EDT Pulse 98 11/15/2017 11:06 AM EDT Temperature 36.8 ??C (98.2 ??F) 11/15/2017 11:06 AM E DT Respiratory Rate 18 11/15/2017 11:06 AM EDT Oxygen Saturation 99% 11/15/2017 11:06 AM EDT Inhaled Oxygen Concentration - - Weight 75.1 kg (165 lb 9.6 oz) 11/15/2017 11:06 AM EDT Height 156 cm (5' 1.42) 11/15/2017 11:06 AM EDT Body Mass Index 30.87 11/15/2017 11:06 AM EDT documented in this encounter Progress Notes * Sally Ren, PUBLIC EMPLOYMENT MEDIATOR - 11/15/2017 11:00 AM EDT Subjective: Patient ID: Wendy Sandoval is a 52 y.o. female here for cycle 4 of adjuvant dose dense taxol today. Interval Hx: Wendy returns in follow up, accompanied by her son and daughter today. She still has a drain in her left breast, she is draining 40-60 cc per day. She will likely have surgery in one month for implant exchange. She notes lymphedema of her left arm. She has not heard from PT to schedule appointment. 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 She states it feels like she is walking on jello. 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 Her appetite is fair. Bowels are regular. ROSEMARY Nguyen is a 51-year-old woman with a recent diagnosis of node positive breast cancer. She presented due to screening mammography, 03/08, this revealing a suspicious 2 cm nodule in the upper outer quadrant left breast. Right breast was unremarkable. Core biopsy demonstrated invasive cancer, ER/NH positive, HER- 2/pat negative. Breast MRI demonstrated additional findings as per the full report. She was seen in surgery and has undergone now bilateral MRM and SALVADOR reconstruction, as noted below she does have a significant family history of breast cancer. Her post-op course was complicated by infection and delayed wound healing. Review of Systems Constitutional: Positive for fatigue. Negative for chills and fever. HENT: Negative. Eyes: Negative. Respiratory: Negative for cough and shortness of [...] left chest. No axillary adenopathy bilaterally. Left reconstruction/safety director larger than right. Abdominal: Soft. Bowel sounds are normal. She exhibits no distension. There is no tenderness. Musculoskeletal: Normal range of motion. She exhibits no tenderness. Lymphedema of left arm Lymphadenopathy: She has no cervical adenopathy. Neurological: She is alert and oriented to person, place, and time. No cranial nerve deficit. Skin: Skin is warm and dry. No rash noted. She is not diaphoretic. No erythema. Psychiatric: She has a normal mood and affect. Her behavior is normal. Most Recent Vitals: 11/15/17 1106 BP: (!) 175/97 Pulse: 98 Resp: 18 Temp: 36.8 ??C (98.2 ??F) SpO2: 99% Recent Results (from the past 72 hour(s)) Comprehensive metabolic panel (non-fasting) Result Value Ref Range Glucose Lvl 108 65 - 199 mg/dL BUN 13 8 - 18 mg/dL Creatinine 0.88 0.70 - 1.20 mg/dL Sodium 143 135 - 145 mmol/L Potassium 3.6 3.5 - 5.0 mmol/L Chloride 105 98 - 107 mmol/L CO2 23 22 - 31 mmol/L Anion Gap 15 5 - 15 mmol/L Calcium 8.5 8.5 - 10.5 mg/dL Total Protein 6.7 6.1 - 8.0 gm/dL Albumin 3.9 3.2 - 5.2 gm/dL AST 19 0 - 30 unit/L ALT 28 0 - 30 unit/L Alk Phos 111 (H) 40 - 104 unit/L Total Bilirubin 0.3 0.2 - 1.3 mg/dL eGFR 74 >=60 mL/min/1.73 m?? eGFR 86 >=60 mL/min/1.73 m?? Hemogram Result Value Ref Range WBC 7.6 4.0 - 9.5 x10(3)/mcL RBC 3.06 (L) 4.00 - 5.21 x10(6)/mcL Hemoglobin 9.7 (L) 11.7 - 15.5 gm/dL Hematocrit 30.1 (L) 35.7 - 45.8 % MCV 98.4 (H) 82.6 - 94.4 fL MCH 31.7 27.1 - 32.0 pg MCHC 32.2 31.7 - 35.0 gm/dL Platelets 327 145 - 357 x10(3)/mcL RDWSD 56.2 (H) 37.0 - 46.0 fL RDWCV 15.6 (H) 11.5 - 14.1 % MPV 8.8 7.6 - 12.9 fL nRBC % Auto 0.0 % nRBC Abs Auto 0.000 0.000 - 0.000 x10(3)/mcL Differential, Automated Result Value Ref Range Neutrophils % 64.2 % Neutr Abs (ANC) 4.89 1.70 - 6.10 x10(3)/mcL Lymphocytes % 11.2 % Lymphocytes Abs 0.8 (L) 0.9 - 3.2 x10(3)/mcL Monocytes % 16.8 % Monocyte Abs 1.3 (H) 0.3 - 0.9 x10(3)/mcL Eosinophils % 5.4 % Eosinophils Abs 0.4 0.0 - 0.4 x10(3)/mcL Basophils % 1.4 % Basophils Abs 0.1 0.0 - 0.1 x10(3)/mcL Immature Gran % 1.00 % Nova Gran Abs 0.08 (H) 0.00 - 0.04 x10(3)/mcL Assessment and Plan: Wendy Sandoval is a 52 y.o. with ER/NH positive, HER-2/pat negative left breast cancer. She is s/p bilateral MRM with attempted SALVADOR flap reconstruction. This failed and she has expanders in place. This was complicated by delayed wound healing and infection. She has developed a fairly large seroma behind her left breast safety director. Drain remains in place and she is on keflex. Surgery will planned in about one month for implant exchange. She has oral thrush on exam and I have called in [place] emergency department. I have also sent a one month supply of valacyclovir to take while she finishes chemotherapy to prevent further outbreaks. I will fax referralfor PT with a certified lymphedema specialist. She is working with her PCP on better blood pressurecontrol. Her labs are as above and remarkable for anemia. We will proceed with her final dose dense Taxol today. I have decreased the dose by 10% for her neuropathy. She will not receive neulasta. I will arrange a radiation follow up for her in [facility]. She will likely start this one month after her surgery. She will follow up in one month with Dr. Barnett. All questions answered. Sally Ren APRN documented in this encounter Plan of Treatment Upcoming Encounters Date Type Department Care Team (Late st Contact Info) Description 01/22/2024 10:30 AM EST Appointment Mammography/[place] [phone] Ladi Mendosa MD [facility] [address] HEMATOLOGY/[place] [address] 01/30/2024 11:30 AM EST Office Visit Dermatology at [address] [place] [address] Nilda Luis MD [facility] [address] [place] [address] 02/15/2024 9:30 AM EST [place] [address] [place] [address] documented as of this encounter Results * (ABNORMAL) Comprehensive metabolic panel (non-fasting) (12/05/2017 10:24 AM EDT) Glucose Lvl 118 65 - 199 mg/dL [facility] Comment:Diabetes: >=200 mg/d L plus symptoms BUN 12 8 - 18 mg/dL [facility] Creatinine 0.89 0.70 - 1.20 mg/dL [facility] Sodium 145 135 - 145 mmol/L [facility] Potassium 3.5 3.5 - 5.0 mmol/L [facility] Comment: Please note: ??Patients with WBC >100,000 may have falsely elevated Potassium levels. ??For accurate Potassium quantification in these patients send serum separator tube ([facility] top) for subsequent determinations. ??Contact the Clinical Chemistry Laboratory if there are any questions. Chloride 105 98 - 107 mmol/L [facility] CO2 25 22 - 31 mmol/L [facility] Anion Gap 15 5 - 15 mmol/L [facility] Calcium 9.1 8.5 - 10.5 mg/dL [facility] Total Protein 6.6 6.1 - 8.0 gm/dL [facility] Albumin 3.9 3.2 - 5.2 gm/dL [facility] AST 15 0 - 30 unit/L [facility] ALT 18 0 - 30 unit/L [facility] Alk Phos 122(H) 40 - 104 unit/L [facility] Total Bilirubin 0.2 0.2 - 1.3 mg/dL [facility] Estimated GFR 73 >=60 mL/min/1. 73 m?? [facility] Comment: The eGFR was calculated using the CKD-EPI equation. As with all creatinine based estimates of kidney function, eGFR values calculated with the CKD-EPI equation are not accurate in patients with acute kidney failure, extremes of body mass or the acutely ill. http://[employer]sela/DHnkf eGFR 85 >=60 mL/min/1. 73 m?? [facility] Comment: The eGFR was calculated using the CKD-EPI equation. As with all creatinine based estimates of kidney function, eGFR values calculated with the CKD-EPI equation are not accurate in patients with acute kidney failure, extremes of body mass or the acutely ill. http://[employer]/DHMCnkf Blood specimen (specimen) 12/05/2017 10:24 AM EDT 12/05/2017 10:38 AM EDT Narrative Resulting Agency Comment Spec In Lab Sally Haylee Ren PUBLIC EMPLOYMENT MEDIATOR CHEMISTRY ORDERABLE S Performing Organization Address City/State/[facility] Co de Phone Number [facility] [place] [address] documented in this encounter Visit Diagnoses Diagnosis Malignant neoplasm of upper-outer quadrant of left breast in female, estrogen receptor positive documented in this encounter Care Teams Fender Finisher Relationship Specialty Start Date End Date Trinh Coates MD [address] [place] [address] PCP - General 01/11/10 documented as of this encounter
--- OUTSIDE RECORDS SUMMARY | 2023-09-07 11:30 | XMS_ITS | Encounter Summary ---
Author Organization [facility] Address [facility] [place] [address] Care Team Providers Care Citrix Architect Name Role Phone Trinh Coates MD Primary Care Provider [phone] Encounter Details Date Type Department Care Team (Late st Contact Info) Description 10/19/2017 Orders Only Hematology [place] [phone] Sally Ren APRN [facility] [place] [address] Social History Tobacco Use Types Packs/Day Years [...] 01/22/2024 10:30 AM EST Appointment Mammography/[place] [address] Ladi Mendosa MD [facility] HEMATOLOGY/[place] [address] 01/30/2024 11:30 AM EST Office Visit Dermatology at [facility] [address] [place] [address] Nilda Luis MD [facility] [address] [address] 02/15/2024 9:30 AM EST Appointment [place] [phone] [place] [address] documented as of this encounter Visit Diagnoses Not on filedocumented in this encounter Care Teams Citrix Architect Relationship Specialty Start Date End Date Trinh Coates MD [facility] [address] [address] PCP - General 01/11/10 documented as of this encounter
--- OUTSIDE RECORDS SUMMARY | 2023-09-07 11:30 | XMS_ITS | Encounter Summary ---
Author Organization [facility] [place] [address] Care Team Providers Care Glycerin Supervisor Name Role Phone Trinh Coates MD Primary Care Provider [phone] Reason for Referral * Diagnostic Test (Routine) - Closed Specialty Diagnoses / Procedures Referred By Diamante marin Referred To Contact Radiology Diagnoses Malignant neoplasm of left female breast, unspecified estrogen receptor status, unspecified site of breast Procedures IR Drain Check/Change/Remove Doreen Mcgovern MD [facility] [place] [address] [place] [address] Referral ID Status Reason Start Date Expiration Date V isits Requested Visits Authorized [id number] Closed Specialty Service Requested 11/16/2017 11/16/2018 1 1 Encounter Details Date Type Department Care Team (Late st Contact Info) Description 11/16/2017 Orders [place] [address] Doreen Mcgovern MD [facility] [place] [address] Malignant neoplasm of left female breast, unspecified estrogen receptor status, unspecified site of breast Social History Tobacco Use Types Packs/Day [...] 01/22/2024 10:30 AM EST Appointment Mammography/DXA at [place] [phone] Ladi Mendosa MD [facility] HEMATOLOGY/[place] [address] 01/30/2024 11:30 AM EST Office Visit Dermatology at [address] [phone] Nilda Luis MD [facility] [address] [place] [address] 02/15/2024 9:30 AM EST Appointment Radiology at [place] [phone] [place] [address] documented as of this encounter Results * IR Drain Check/Change/Remove (11/20/2017 10:58 AM EDT) Anatomical Region Laterality Modality Head X-Ray Angiograph y Impressions 12/27/2017 3:40 PM EST : ?? Drain within residual collection adjacent to left breast interventional pain physician. Recommend: continue drain to bulb suction. ??Flush [...] estrogen receptor status, unspecified site of breast Malignant neoplasm of left female breast, unspecified estrogen receptor status, unspecified site of breast documented in this encounter Care Teams Glycerin Supervisor Relationship Specialty Start Date End Date Trinh Coates MD [address] [place] [address] PCP - General 01/11/10 documented as of this encounter
--- OUTSIDE RECORDS SUMMARY | 2023-09-07 11:30 | XMS_ITS | Encounter Summary ---
Author Organization Counts Include [facility] Address [facility] [place] [address] Care Team Providers Care Process Improvement Analyst Name Role Phone Trinh Coates MD Primary Care Provider [phone] Reason for Referral * Physical Therapy (Routine) - Specialty Diagnoses / Procedures Referred By Diamante marin Referred To Contact Physical Therapy Diagnoses Malignant neoplasm of upper-outer quadrant of left breast in female, estrogen receptor positive Josias Barnett MD [facility] HEMATOLOGY/[place] [address] Referral ID Status Reason Start Date Expiration Date V isits Requested Visits Authorized [id number] Evaluate and Treat 11/01/2017 04/30/2018 12 12 Encounter Details Date Type Department Care Team (Late st Contact Info) Description 11/01/2017 11:00 AM EDT Office Visit Hematology [place] [address] Josias Barnett MD [facility] [place]OLOG[place] [address] Malignant neoplasm of upper-outer quadrant of left [...] Sign Reading Time Taken Comments Blood Pressure 162/99 11/01/2017 10:49 AM EDT Pulse 100 11/01/2017 10:49 AM EDT Temperature 36.9 ??C (98.4 ??F) 11/01/2017 10:49 AM E DT Respiratory Rate 18 11/01/2017 10:49 AM EDT Oxygen Saturation 99% 11/01/2017 10:49 AM EDT Inhaled Oxygen Concentration - - Weight 77.1 kg (170 lb) 11/01/2017 10:49 AM EDT Height 156 cm (5' 1.42) 11/01/2017 10:49 AM EDT Body Mass Index 31.69 11/01/2017 10:49 AM EDT documented in this encounter Progress Notes * Josias Barnett MD - 11/01/2017 11:00 AM EDT Breast cancer treatment visit HPI: Diagnosis of Invasive ductal carcinoma, left breast, in March 2017. A. 2.0 cm cancer, high-grade, grade 3. ER/AR +++, HER-2/pat negative, 4/18 nodes (1/18 additional [...] test drawn yesterday, results pending. Interval Hx/ROS: Here today to continue adjuvant taxol. She received her 2nd taxol on 10/18. Since her ANC was high (nearly 15K) and she had significant bilateral leg pains for a few days related to the neulasta, thatwas not given. Much less leg pains this time. She has been dealing with hypokalemia since last seen here. Had visits to ER up [place], with fatigue, dehydration and K=2.7. Feeing better now. On oral K. She has tingling and numbness in fingers and toes. Also, lips are numb. Reports no problems with daily HAs, cough, SOB, fevers, bleeding, nausea/emesis, change in bowel orbladder function. ROS otherwise neg. Exam Most Recent Vitals: 11/01/17 1049 BP: (!) 162/99 Pulse: 100 Resp: 18 Temp: 36.9 ??C (98.4 ??F) SpO2: 99% PERRL, EOMi, sclera nonicteric Oropharynx benign No BLANCA Mediport site nontender and without e/o infection Chest clear to A and P CV: RRR, no m/ Abd: No HSM, NT, +BS Ext: no c.c.e other than some lymphedema in left arm Neuro grossly non-focal Recent Results (from the past 24 hour(s)) Comprehensive metabolic panel (non-fasting) Result Value Ref Range Glucose Lvl 131 65 - 199 mg/dL BUN 16 8 - 18 mg/dL Creatinine 0.89 0.70 - 1.20 mg/dL Sodium 140 135 - 145 mmol/L Potassium 3.7 3.5 - 5.0 mmol/L Chloride 101 98 - 107 mmol/L CO2 25 22 - 31 mmol/L Anion Gap 14 5 - 15 mmol/L Calcium 9.3 8.5 - 10.5 mg/dL Total Protein 6.4 6.1 - 8.0 gm/dL Albumin 3.5 3.2 - 5.2 gm/dL AST 15 0 - 30 unit/L ALT 27 0 - 30 unit/L Alk Phos 86 40 - 104 unit/L Total Bilirubin 0.5 0.2 - 1.3 mg/dL eGFR 73 >=60 mL/min/1.73 m?? eGFR 85 >=60 mL/min/1.73 m?? Hemogram Result Value Ref Range WBC 10.1 (H) 4.0 - 9.5 x10(3)/mcL RBC 3.01 (L) 4.00 - 5.21 x10(6)/mcL Hemoglobin 9.6 (L) 11.7 - 15.5 gm/dL Hematocrit 29.6 (L) 35.7 - 45.8 % MCV 98.3 (H) 82.6 - 94.4 fL MCH 31.9 27.1 - 32.0 pg MCHC 32.4 31.7 - 35.0 gm/dL Platelets 359 (H) 145 - 357 x10(3)/mcL RDWSD 64.3 (H) 37.0 - 46.0 fL RDWCV 17.7 (H) 11.5 - 14.1 % MPV 9.0 7.6 - 12.9 fL nRBC % Auto 0.0 % nRBC Abs Auto 0.000 0.000 - 0.000 x10(3)/mcL Differential, Automated Result Value Ref Range Neutrophils % 69.4 % Neutr Abs (ANC) 7.00 (H) 1.70 - 6.10 x10(3)/mcL Lymphocytes % 8.6 % Lymphocytes Abs 0.9 0.9 - 3.2 x10(3)/mcL Monocytes % 12.7 % Monocyte Abs 1.3 (H) 0.3 - 0.9 x10(3)/mcL Eosinophils % 7.9 % Eosinophils Abs 0.8 (H) 0.0 - 0.4 x10(3)/mcL Basophils % 0.7 % Basophils Abs 0.1 0.0 - 0.1 x10(3)/mcL Immature Gran % 0.70 % Nova Gran Abs 0.07 (H) 0.00 - 0.04 x10(3)/mcL Assessment and Plan: 52 yo diagnosed last Mar with a high-grade, node-positive left breast cancer. She is s/p bilateral mastectomy. Has been on adjuvant chemo since 07/20/17. Today transitioning to dose-dense taxol She is prepared to continue with treatment. Wants to again avoid Neulasta. Given counts, will do so, but cautioned her that in 2 wk we might have to delay her final infusion if counts not recovered enough. Labs ok for treatment. * Elisa Abbott RN - 11/01/2017 11:00 AM EDT Message from provider to arrange for PT for lymphedema. Patient prefers to receive therapy closer to [place], [place]. RN Placed call to [facility] PT department ([phone]), who confirmed they do havea lymphedema certified physical therapist. RN will notify secretaries to set up referral. [facility] PT . documented in this encounter Plan of Treatment Upcoming Encounters Date Type Department Care Team (Late st Contact Info) Description 01/22/2024 10:30 AM EST Appointment Mammography/DXA at [place] [phone] Ladi Mendosa MD [facility] HEMATOLOGY/[place] [address] 01/30/2024 11:30 AM EST Office Visit Dermatology at [address] [phone] Nilda Luis MD [facility] [address] [place] [address] 02/15/2024 9:30 AM EST [place] [address] [place] [address] Scheduled Referrals Name Type Priority Associated Diagnoses Orde r Schedule Referral to Physical Therapy Outpatient Referral Routine Malignant neoplasm of upper-outer quadrant of left breast in female, estrogen receptor positive Ordered: 11/01/2017 documented as of this encounter Visit Diagnoses Diagnosis Malignant neoplasm of upper-outer quadrant of left breast in female, estrogen receptor positive documented in this encounter Care Teams Process Improvement Analyst Relationship Specialty Start Date End Date Trinh Coates MD [address] [place] [address] PCP - General 01/11/10 documented as of this encounter
--- OUTSIDE RECORDS SUMMARY | 2023-09-07 11:30 | XMS_ITS | Encounter Summary ---
Author Organization [facility] [place] [address] Care Team Providers Care Intel Analyst Name Role Phone Trinh Coates MD Primary Care Provider [phone] Reason for Visit * Reason Comments Follow Up Surgery Encounter Details Date Type Department Care Team (Late st Contact Info) Description 10/18/2017 10:20 AM EDT Office [place] [address] Jolene Azevedo APRN [facility] [place] [address] Surgery follow-up Social History Tobacco Use Types [...] Progress Notes * Jolene Azevedo APRN - 10/18/2017 10:20 AM EDT Plastic Surgery Follow Up Note Date of surgery: 04/26/17 Procedure(s): Bilateral breast reconstruction with attempted SALVADOR flaps, eventual tissue expansion joint finisher placement with [place] 600 cc expanders placed bilaterally and filled with 450 cc of methyleneblue impregnated saline.) Complications: right parietal and visceral pleural tear, arterial flap failure bilaterally Date of surgery: 06/22/17 Procedure(s) left breast wound debridement, excision and closure. Debridement of umbilicus. Deflation of expansion joint finisher volume, This leaves 450 cc in the left tissue expansion joint finisher and 500 cc on the right side Chemotherapy: yes Radiation: yes Anticipated timeline: chemotherapy completion, when recovered will have expanders removed and permanent implants placed, approximately 3 weeks later will begin radiation. HPI: Pt reports that she feels about the same. She is a little teary and frustrated at today's visit. Her drain out put is variable. 5-100 ml per day. She expresses that the output has changed in color. It is deeper, more pink/red. Her left breast is still very sensitive and painful to the touch. She has followed up regarding her electrolytes. Potassium was high and medications adjusted. After today, she has two more cycles of chemotherapy. Examination: Patient is alert, conversant, comfortable, ambulating Tissue expanders in place. Drain remains in place with serous fluid in bag. Drain site free of sings of infection. Impression: Wendy Sandoval is a 52 y.o. female who was seen today for follow- up after the above procedure. Please see the operative note for details. Continues with high serous out put. Drain remains. Plan: Follow up in one week for drain check. Continue course of antibiotics. Dr. Gimenez in to examine patient. He agrees with this plan. I, KAM SMITH, have performed the documentation [...] 01/22/2024 10:30 AM EST Appointment Mammography[place] [address] Ladi Mendosa MD [facility] HEMATOLOGY/[place] [address] 01/30/2024 11:30 AM EST Office Visit Dermatology at [facility] [address] [place] [address] Nilda Luis MD [facility] [address] [place] [address] 02/15/2024 9:30 AM EST [place]ment [place] [phone] [place] [address] documented as of this encounter Visit Diagnoses Diagnosis Surgery follow-up Follow-up examination, following unspecified surgery documented in this encounter Care Teams Intel Analyst Relationship Specialty Start Date End Date Trinh Coates MD [facility] [address] [place] [address] PCP - General 01/11/10 documented as of this encounter
--- OUTSIDE RECORDS SUMMARY | 2023-09-07 11:30 | XMS_ITS | Encounter Summary ---
Author Organization [facility] Address [facility] [place] [address] Care Team Providers Care Art Education Professor Name Role Phone Trinh Coates MD Primary Care Provider Reason for Visit * Reason Comments Genetic Evaluation recent dx of breast cancer and fam hx of breast and other cancers * Consultation (Routine) - Closed Specialty Diagnoses / Procedures Referred By Diamante marin Referred To Contact Hematology and Oncology Diagnoses Malignant neoplasm of upper-outer quadrant of left breast in female, estrogen receptor positive Sally Ren, AARTI [facility] [place] [address] Stj Hem Onc Office [address] [place] [phone] Referral ID Status Reason Start Date Expiration Date V isits Requested Visits Authorized [id number] Closed Consult, Test & Treat 05/30/2017 05/30/2018 1 1 Encounter Details Date Type Department Care Team (Late st Contact Info) Description 10/31/2017 1:00 PM EDT Office Visit Hematology/Oncolog y at [address] [phone] Corine Barron LGC [facility] HEMATOLOGY/[place] [address] Malignant neoplasm of left breast in female, estrogen receptor positive, unspecified site of breast; Family history of malignant neoplasm of breast; Family history of malignant neoplasm of ovary; Family history of malignant neoplasm of gastrointestinal tract Social History Tobacco Use Types Packs/Day Years [...] as of this encounter Progress Notes * Corine Barron LGC - 10/31/2017 1:00 PM EDT Ms. Sandoval was seen by Cindy Barron MS [facility] in consultation at the request of Dr. Jolie Menendez to advise regarding possible heritable predisposition to cancer. I spent 40 minutes of this face to face encounter with the patient gathering medical and family history and discussing the likelihood of a genetic predisposition to cancer and the option of genetic testing. Reason for referral/Chief complaint Recent diagnosis of breast cancer and family history of breast, colon, stomach and ovarian cancer. Medical history Cancer hx and treatment: Wendy was recently diagnosed with node positive, left breast cancer.??Her tumor was ER/AR positive, HER-2/pat negative. ?? She was treated with bilateral mastectomy and SALVADOR reconstruction. She is currently undergoing adjuvant chemotherapy. Age at 1st menses: 10 Age at 1st child: 26 Menopause status: Perimenopausal with last menstrual cycle in April of 2017. Oral contraceptive use: In the past, for a total of over 10 years. Hormone replacement therapy use: In the past from [id number] (Progestin). Family History of Cancer Problem Relation Age of Onset ??? Breast Cancer Maternal 1st 1 45 Dx'd with Stg IV BR CA, in remission (age 48 in 2018); per pt report, genetic test inconclusive ??? Breast Cancer Mother 70 ??? Breast Cancer Maternal Aunt 39 contralateral breast cancer at 50; per pt report, negative genetic testing ??? Prostate Cancer Father 60 ??? Colorectal Cancer Maternal Grandfather 79 ??? Colorectal Cancer Maternal Uncle 68 ??? Stomach Cancer Maternal 1st Cousin 2 51 ??? Breast Cancer Maternal Great Aunt (grandmother's sister) 60 ??? Colorectal Cancer Maternal Great Aunt's Daughter 64 ??? Ovarian Cancer Maternal Great Grandmother (grandmother's mother) 57 Maternal ethnic background is Polish. Paternal ethnic background is unknown. Genetic risk assessment Panel genetic testing for an inherited predisposition to cancer, including breast, colon and ovarian, was discussed. The risks, benefits and limitations of panel genetic testing were reviewed, specifically a high rate of identifying a variant of uncertain significance (~20%), lack of knowledge of cancer risk for newly identified, moderate risk genes included in the panel and lack of effective screening, as well as cancer risk for other cancers not observed in the family. The likelihood that Wendy would be found to have a mutation in a cancer predisposition gene is high enough to offer the option of genetic testing. Wendy opted for testing with [facility] Common Hereditary Cancers Panel, a next generation sequencing panel that simultaneously analyzes 46 genes, including BRCA1 and BRCA2,that contribute to increased risk for cancer, including breast, colon and ovarian. Wendy was consented. Her blood sample was drawn and sent to [facility]. Testing will take approximately 3 weeks. Wendy will be contacted via telephone once her test results become available. If positive, we will schedule an in person follow-up appointment. At that time, we will discuss with Wendy the implications that this test result may have for her, as well as her family members. We will also provide Wendy with screening guidelines for cancer prevention and early detection, as well as answer any questions she may have. documented in this encounter Plan of Treatment Upcoming Encounters Date Type Department Care Team (Late st Contact Info) Description 01/22/2024 10:30 AM EST Appointment Mammography/[place] [address] Ladi Mendosa MD [facility] HEMATOLOGY/[place] [address] 01/30/2024 11:30 AM EST Office Visit Dermatology at [facility] [address] [place] [phone] Nilda Luis MD [facility] [address] [place] [address] 02/15/2024 9:30 AM EST [place]ment [place] [phone] [place] [address] Scheduled Referrals Name Type Priority Associated Diagnoses Orde r Schedule Referral to Familial Cancer Outpatient Referral Routine Malignant neoplasm of upper-outer quadrant of left breast in female, estrogen receptor positive Ordered: 05/30/2017 documented as of this encounter Visit Diagnoses Diagnosis Malignant neoplasm of left breast in female, estrogen receptor positive, unspecified site of breast Family history of malignant neoplasm of breast Family history of malignant neoplasm of ovary Family history of malignant neoplasm of gastrointestinal tract documented in this encounter Care Teams Art Education Professor Relationship Specialty Start Date End Date Trinh Coates MD [facility] [address] [place] [address] PCP - General 01/11/10 documented as of this encounter
--- OUTSIDE RECORDS SUMMARY | 2023-09-07 11:30 | XMS_ITS | Encounter Summary ---
Author Organization [facility] Address [facility] Margarita [facility] [place] [address] Care Team Providers Care Solutions Specialist Name Role Phone Trinh Coates MD Primary Care Provider [phone] Encounter Details Date Type Department Care Team (Late st Contact Info) Description 10/23/2017 Notes Only Hematology [place] [address] [facility] DR HEMATOLOGY/[place] [address] Social History Tobacco Use Types Packs/Day Years [...] Progress Notes * Josias Barnett MD - 10/23/2017 3:58 PM EDT I have reviewed the patient's record and given personal and/or family history of cancer she should be seen by genetic counselor. This is scheduled for next week. documented in this encounter Plan of Treatment Upcoming Encounters Date Type Department Care Team (Late st Contact Info) Description 01/22/2024 10:30 AM EST Appointment Mammography/[place] [address] [facility] HEMATOLOGY/[place] [address] 01/30/2024 11:30 AM EST Office Visit Dermatology at [place] [address] [place] [phone] Nilda Luis MD [facility] [address] [place] [address] 02/15/2024 9:30 AM EST Appointment Radiology at [place] [phone] [place] [address] documented as of this encounter Visit Diagnoses Not on filedocumented in this encounter Care Teams Solutions Specialist Relationship Specialty Start Date End Date Trinh Coates MD [facility] [address] [place] [address] PCP - General 01/11/10 documented as of this encounter
--- OUTSIDE RECORDS SUMMARY | 2023-09-07 11:30 | XMS_ITS | Encounter Summary ---
Author Organization [facility] Address [facility] [place] [address] Care Team Providers Care Import And Export Clerk Name Role Phone Trinh Coates MD Primary Care Provider [phone] Encounter Details Date Type Department Care Team (Late st Contact Info) Description 10/06/2017 Telephone Hematology [place] [address] García Chapin MD [facility] DR HEMATOLOGY/[place] [address] Social History Tobacco Use Types Packs/Day Years [...] encounter Miscellaneous Notes * Telephone Encounter - García Chairez MD - 10/06/2017 7:12 PM EDT Received page from patient's son. He noted that his mother started having intermittent sharp pains in both her hips today morning. Patient had C1D1 of taxol on 10/04. Denies any fevers, chills, or other symptoms. Denies any association between walking or changing positions with pain. She had tried a dose of ibuprofen earlier with some relief. I discussed with him that taxol can cause pain which is usually limited to few days after the infusion. I recommended that she try tylenol 500mg q6hr and applying heat packs to the area. In addition,I recommended that she continue to exercise and keep herself active as it would help with the pain. documented in this encounter Plan of Treatment Upcoming Encounters Date Type Department Care Team (Late st Contact Info) Description 01/22/2024 10:30 AM EST Appointment Mammography/[place] [phone] Ladi Mendosa MD [facility] HEMATOLOGY/[place] [address] 01/30/2024 11:30 AM EST Office Visit Dermatology at [address] [phone] Nilda Luis MD [facility] [address] [address] 02/15/2024 9:30 AM EST [place] [address] [place] [address] documented as of this encounter Visit Diagnoses Not on filedocumented in this encounter Care Teams Import And Export Clerk Relationship Specialty Start Date End Date Trinh Coates MD [facility] [address] [place] [address] PCP - General 01/11/10 documented as of this encounter
--- OUTSIDE RECORDS SUMMARY | 2023-09-07 11:31 | XMS_ITS | Encounter Summary ---
Author Organization [facility] Address [facility] [address] Care Team Providers Care Decker Operator Name Role Phone Trinh Coates MD Primary Care Provider [phone] Encounter Details Date Type Department Care Team (Late st Contact Info) Description 08/08/2017 Orders Only Hematology [place] [address] Sally Ren APRN [facility] [place] [address] Malignant neoplasm of upper-outer quadrant of left [...] 01/22/2024 10:30 AM EST Appointment Mammography/[place] [address] Ladi Mendosa MD [facility] HEMATOLOGY/[place] [address] 01/30/2024 11:30 AM EST Office Visit Dermatology at [facility] [address] [place] [address] Nilda Luis MD [facility] [address] [place] [address] 02/15/2024 9:30 AM EST Appointment [place] [phone] [place] [address] documented as of this encounter Results * (ABNORMAL) Comprehensive metabolic panel (non-fasting) (08/09/2017 10:20 AM EDT) Glucose Lvl 155 65 - 199 mg/dL [facility] Comment:Diabetes: >=200 mg/d L plus symptoms BUN 18 8 - 18 mg/dL [facility] Creatinine 0.95 0.70 - 1.20 mg/dL [facility] Sodium 140 135 - 145 mmol/L [facility] Potassium 3.0(Criti kee) 3.5 - 5.0 mmol/L [facility] Comment: Result rechecked. Called by: ROXANNE, Read back by: Argentina Conner, Date/Time:08/09/17 11:57. Please note: ??Patients with WBC >100,000 may have falsely elevated Potassium levels. ??For accurate Potassium quantification in these patients send serum separator tube (gold top) for subsequent determinations. ??Contact the Clinical Chemistry Laboratory if there are any questions. Chloride 98 98 - 107 mmol/L [facility] CO2 27 22 - 31 mmol/L [facility] Anion Gap 15 5 - 15 mmol/L [facility] Calcium 8.9 8.5 - 10.5 mg/dL [facility] Total Protein 6.9 6.1 - 8.0 gm/dL [facility] Albumin 4.1 3.2 - 5.2 gm/dL [facility] AST 16 0 - 30 unit/L [facility] ALT 21 0 - 30 unit/L [facility] Alk Phos 138(H) 40 - 104 unit/L [facility] Total Bilirubin <0.2(L) 0.2 - 1.3 mg/dL [facility] Estimated GFR 68 >=60 mL/min/1. 73 m?? [facility] Comment: The eGFR was calculated using the CKD-EPI equation. As with all creatinine based estimates of kidney function, eGFR values calculated with the CKD-EPI equation are not accurate in patients with acute kidney failure, extremes of body mass or the acutely ill. http://[employer]Appnkdep http://[employer]/iBuildAppnkf eGFR 79 >=60 mL/min/1. 73 m?? [facility] Comment: The eGFR was calculated using the CKD-EPI equation. As with all creatinine based estimates of kidney function, eGFR values calculated with the CKD-EPI equation are not accurate in patients with acute kidney failure, extremes of body mass or the acutely ill. http://[employer]nkdep http://[employer]/DHnkf Blood specimen (specimen) 08/09/2017 10:20 AM EDT 08/09/2017 11:04 AM EDT Narrative Resulting Agency Comment Spec In Lab Sally Ren PATTERNMAKER SAMPLE CHEMISTRY ORDERABLE S [facility] [place] [address] documented in this encounter Visit Diagnoses Diagnosis Malignant neoplasm of upper-outer quadrant of left breast in female, estrogen receptor positive documented in this encounter Care Teams Decker Operator Relationship Specialty Start Date End Date Trinh Coates MD [address] [place] [address] PCP - General 01/11/10 documented as of this encounter
--- OUTSIDE RECORDS SUMMARY | 2023-09-07 11:31 | XMS_ITS | Encounter Summary ---
Author Organization [facility] Address [facility] [place] [address] Care Team Providers Care Coffin Maker Name Role Phone Trinh Coates MD Primary Care Provider [phone] Reason for Visit * Reason Comments Follow-up Encounter Details Date Type Department Care Team (Late st Contact Info) Description 09/20/2017 10:00 AM EDT Office Visit Hematology [place] [address] Sally Ren APRN [facility] [place] [address] Essential hypertension; Malignant neoplasm of upper-outer quadrant of left breast in female, estrogen receptor positive; Seroma of breast Social History Tobacco Use Types [...] Reading Time Taken Comments Blood Pressure 145/95 09/20/2017 9:52 AM EDT Pulse 77 09/20/2017 9:52 AM EDT Temperature 36.9 ??C (98.4 ??F) 09/20/2017 9:52 AM ED T Respiratory Rate 18 09/20/2017 9:52 AM EDT Oxygen Saturation 99% 09/20/2017 9:52 AM EDT Inhaled Oxygen Concentration - - Weight 77.1 kg (170 lb) 09/20/2017 9:52 AM EDT Height 157.2 cm (5' 1.89) 09/20/2017 9:52 AM ED T Body Mass Index 31.2 09/20/2017 9:52 AM EDT documented in this encounter Progress Notes * Sally Ren, NURSE ESTHETICIAN - 09/20/2017 10:00 AM EDT Subjective: Patient ID: Wendy Sandoval is a 52 y.o. female here for cycle 4 of adjuvant chemotherapy today. Interval Hx: Wendy returns in follow up with her son today. She still has a drain in her left breast, she continues on keflex. The drain is still putting out 50-90 cc per day. She is afebrile. Her energy is much better. She did have some diarrhea with the antibiotics but this is resolving. Her eyes have cleared from the conjunctivitis, although, she had to see her eye doctor for a stronger prescription. Shedoes not have any pain. Her appetite is good. She is feeling ready to proceed with cycle 4 of AC today. ROSEMARY Nguyen is a 51-year-old woman with a recent diagnosis of node positive breast cancer. She presented due to screening mammography, 03/08, this revealing a suspicious 2 cm nodule in the upper outer quadrant left breast. Right breast was unremarkable. Core biopsy demonstrated invasive cancer, ER/VT positive, HER- 2/pat negative. Breast MRI demonstrated additional findings as per the full report. She was seen in surgery and has undergone now bilateral MRM and SALVADOR reconstruction, as noted below she does have a significant family history of breast cancer. Her post-op course was complicated by infection and delayed wound healing. Review of Systems Constitutional: Negative for chills and fever. HENT: Negative. [...] to left chest. No axillary adenopathy bilaterally. Abdominal: Soft. Bowel sounds are normal. She [...] Her behavior is normal. Most Recent Vitals: 09/20/17 0952 BP: (!) 145/95 Pulse: 77 Resp: 18 Temp: 36.9 ??C (98.4 ??F) SpO2: 99% Recent Results (from the past 72 hour(s)) Comprehensive metabolic panel (non-fasting) Result Value Ref Range Glucose Lvl 141 65 - 199 mg/dL BUN 19 (H) 8 - 18 mg/dL Creatinine 1.01 0.70 - 1.20 mg/dL Sodium 139 135 - 145 mmol/L Potassium 3.3 (L) 3.5 - 5.0 mmol/L Chloride 98 98 - 107 mmol/L CO2 27 22 - 31 mmol/L Anion Gap 14 5 - 15 mmol/L Calcium 9.6 8.5 - 10.5 mg/dL Total Protein 6.7 6.1 - 8.0 gm/dL Albumin 3.8 3.2 - 5.2 gm/dL AST 16 0 - 30 unit/L ALT 24 0 - 30 unit/L Alk Phos 112 (H) 40 - 104 unit/L Total Bilirubin 0.3 0.2 - 1.3 mg/dL eGFR 63 >=60 mL/min/1.73 m?? eGFR 73 >=60 mL/min/1.73 m?? Hemogram Result Value Ref Range WBC 12.7 (H) 4.0 - 9.5 x10(3)/mcL RBC 3.49 (L) 4.00 - 5.21 x10(6)/mcL Hemoglobin 10.4 (L) 11.7 - 15.5 gm/dL Hematocrit 31.7 (L) 35.7 - 45.8 % MCV 90.8 82.6 - 94.4 fL MCH 29.8 27.1 - 32.0 pg MCHC 32.8 31.7 - 35.0 gm/dL Platelets 533 (H) 145 - 357 x10(3)/mcL RDWSD 55.2 (H) 37.0 - 46.0 fL RDWCV 16.5 (H) 11.5 - 14.1 % MPV 8.7 7.6 - 12.9 fL nRBC % Auto 0.0 % nRBC Abs Auto 0.000 0.000 - 0.000 x10(3)/mcL Differential, Automated Result Value Ref Range Neutrophils % 69.6 % Neutr Abs (ANC) 8.82 (H) 1.70 - 6.10 x10(3)/mcL Lymphocytes % 7.8 % Lymphocytes Abs 1.0 0.9 - 3.2 x10(3)/mcL Monocytes % 12.8 % Monocyte Abs 1.6 (H) 0.3 - 0.9 x10(3)/mcL Eosinophils % 6.3 % Eosinophils Abs 0.8 (H) 0.0 - 0.4 x10(3)/mcL Basophils % 2.5 % Basophils Abs 0.3 (H) 0.0 - 0.1 x10(3)/mcL Immature Gran % 1.00 % Nova Gran Abs 0.13 (H) 0.00 - 0.04 x10(3)/mcL Scan, Peripheral Blood Result Value Ref Range Plat Estimate Increased RBC Morphology Abnormal Microcytes 1-5 /HPF Assessment and Plan: Wendy Sandoval is a 52 y.o. with ER/VT positive, HER-2/pat negative left breast cancer. She is s/p bilateral MRM with attempted SALVADOR flap reconstruction. This failed and she has expanders in place. This was complicated by delayed wound healing and infection. She had cycle 3 of AC 4 weeks ago. 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 Drain remains in place and she is on keflex. She had a significantly delayed initiation of chemotherapy due to flap failure and wound healing. She now has delayed cycle 4 of AC for 4 weeks due to seroma and drain. I have discussed her case with Dr. Cyr and we will proceed with cycle 4 today. Her labs are as above and notable for a K+ of 3.3, she is taking oral potassium. Her diarrhea has stopped, I will not adjust her potassium today. She has stopped her valsartan from the recall. She has still not heard from her PCP in regards to high blood pressure and I will call their office today. She will call with any signs orsymptoms of infection or fever. We will see her back in 2 weeks with labs and consideration of cycle 1 of taxol. Plastics is going to follow her on a weekly basis. All questions answered. She will call in the interim with concerns. Sally Ren APRN documented in this encounter Plan of Treatment Upcoming Encounters Date Type Department Care Team (Late st Contact Info) Description 01/22/2024 10:30 AM EST Appointment Mammography/DXA at [place] [phone] Ladi Mendosa MD [facility] DR HEMATOLOGY/[place] [address] 01/30/2024 11:30 AM EST Office Visit [address]ology [address] [place] [address] Nilda Luis MD [facility] [address] [place] [address] 02/15/2024 9:30 AM EST [place]ointment [place] [address] [place] [address] documented as of this encounter Visit Diagnoses Diagnosis Essential hypertension Unspecified essential hypertension Malignant neoplasm of upper-outer quadrant of left breast in female, estrogen receptor positive Seroma of breast documented in this encounter Care Teams Coffin Maker Relationship Specialty Start Date End Date Trinh Coates MD [address] [facility] [address] [place] [address] PCP - General 01/11/10 documented as of this encounter
--- OUTSIDE RECORDS SUMMARY | 2023-09-07 11:31 | XMS_ITS | Encounter Summary ---
Author Organization [facility] [place] [address] Care Team Providers Care Flavoring Machine Operator Name Role Phone Trinh Coates MD Primary Care Provider [phone] Encounter Details Date Type Department Care Team (Latest Contact Info) Description 09/20/2017 8:45 AM EDT - 09/20/2017 8:46 AM EDT Hospital Encounter [place]ology [place] [address] Malignant neoplasm of upper-outer quadrant of left [...] Sig Dispensed Refills Start Date End Date cholecalciferol, Vitamin D3, 125 mcg (5,000 unit) Tablet Take by mouth daily. ferrous gluconate 324 mg (37.5 mg iron) TabletIndications:Pro teinuria,Essential hypertension,Hypercal cemia Take 324 mg by mouth daily. fluoxetine [...] 0 03/02/2017 07/12/2020 triamcinolone (ARISTOCORT) 0.5 % CreamIndications:plaq ue psoriasis Apply topically 3 times daily. To hand, elbow and lower back Indications: Plaque Psoriasis 07/24/2018 DILTiazem (CARDIZEM CD) 240 mg Capsule, Sust. Release 24 hr Take 1 capsule by mouth daily. 07/26/2015 10/17/2018 clobetasol (TEMOVATE) 0.05 % CreamIndications:Psor iasis Apply to affected areas on knees, elbows and hands twice daily for two week cycles as needed. 60 g 3 04/16/2014 10/20/2019 ferrous sulfate (FeroSul) 325 mg (65 mg iron) tablet 1 tablet. 01/26/2014 05/15/2023 omeprazole (PriLOSEC OTC) [address] tablet 1 CAP daily 03/27/2014 024 amoxicillin-clavulana te (AUGMENTIN) 875-125 mg TabletIndications:S/P breast reconstruction, bilateral,Seroma of breast Take 1 tablet by mouth 2 times daily for 14 days. Take antibiotics until drain removed. When Keflex complete, transition to Augmentin. 28 tablet 2 09/18/2017 10/02/2017 cephalexin (KEFLEX) 500 mg Capsule Take 1 capsule by mouth 4 times daily for 10 days. 40 capsule 09/13/2017 09/23/2017 omeprazole (PRILOSEC) 40 mg Capsule, Delayed Release(E.C.) [...] by mouth daily. 30 tablet 05/01/2017 12/12/2017 valsartan-hydrochloro thiazide (DIOVAN-HCT) 160-12.5 mg Tablet Take 1 tablet by mouth daily. 02/20/2017 10/10/2017 acetaminophen (TYLENOL) 325 mg Tablet Take 2 tablets by mouth every 4 hours as needed for Pain. 11/03/2015 07/25/2022 documented as of this encounter Progress Notes * Aida Jackson RN - 09/20/2017 9:12 AM EDT Patient Name: Wendy Sandoval Patient Age: 52 y.o. Birthdate: 1965 Admit date: 09/20/2017 Attending Physician: Donna att. providers found Access visit. See MAR and/or flowsheet. documented in this encounter Plan of Treatment Upcoming Encounters Date Type Department Care Team (Late st Contact Info) Description 01/22/2024 10:30 AM EST Appointment Mammography/[place] [phone] Ladi Mendosa MD [facility] DR HEMATOLOGY/[place] [address] 01/30/2024 11:30 AM EST Office Visit Dermatology at [address] [phone] Nilda Luis MD [facility] [address] [place] [address] 02/15/2024 9:30 AM [place] [phone] [place] [address] documented as of this encounter Procedures Procedure Name Priority Date/Time Associated Diagnosis Comments SCAN, PERIPHERAL BLOOD STAT 8 9:00 AM EDT HEMOGRAM STAT 09/20/2017 9:00 AM EDT Malignant neoplasm of upper-outer quadrant of left breast in female, estrogen receptor positive DIFFERENTIAL, AUTOMATED STAT 09/20/2017 9:00 AM EDT Malignant neoplasm of upper-outer quadrant of left breast in female, estrogen receptor positive CBC (WITH DIFF) STAT 09/20/2017 9:00 AM EDT Malignant neoplasm of upper-outer quadrant of left breast in female, estrogen receptor positive COMPREHENSIVE METABOLIC PANEL (NON-FASTING) STAT 09/20/2017 9:00 AM EDT Malignant neoplasm of upper-outer quadrant of left breast in female, estrogen receptor positive documented in this encounter Results * Scan, Peripheral Blood (09/20/2017 9:00 AM EDT) Plat Estimate Increased [facility] RBC Morphology Abnormal [facility] Microcytes 1-5 /HPF [facility] Blood specimen (specimen) 09/20/2017 9:00 AM EDT 09/20/2017 9:29 AM EDT Narrative Resulting Agency Comment Spec In Lab Sally Ren PICKLE SORTER HEMATOLOGY ORDERABL ES [facility] [place] [address] * (ABNORMAL) Differential, Automated (09/20/2017 9:00 AM EDT) Neutrophils % 69.6 % [facility] Neutr Abs (ANC) 8.82(H) 1.70 - 6.10 x10(3)/mc L [facility] Lymphocytes % 7.8 % [facility] Lymphocytes Abs 1.0 0.9 - 3.2 x10(3)/mc L [facility] Monocytes % 12.8 % [facility] Monocyte Abs 1.6(H) 0.3 - 0.9 x10(3)/mc L [facility] Eosinophils % 6.3 % [facility] Eosinophils Abs 0.8(H) 0.0 - 0.4 x10(3)/[facility] Basophils % 2.5 % [facility] Basophils Abs 0.3(H) 0.0 - 0.1 x10(3)/[facility] Immature Gran % 1.00 % [facility] Comment: Immature granulocytes(IG's)percentage and absolute count will include metamyelocytes, myelocytes, and promyelocytes. Blood smears from CBCs yielding IG's will be scanned manually for concordance. If this scan disagrees with the automated IG or if promyelocytes are noted, a manual differential will be performed. Nova Gran Abs 0.13(H) 0.00 - 0.04 x10(3)/[facility] Blood specimen (specimen) 09/20/2017 9:00 AM EDT 09/20/2017 9:29 AM EDT Narrative Resulting Agency Comment Spec In Lab Sally Ren APRN HEMATOLOGY ORDERABL ES [facility] [place] [address] * (ABNORMAL) Hemogram (09/20/2017 9:00 AM EDT) WBC 12.7(H) 4.0 - 9.5 x10(3)/[facility] RBC 3.49(L) 4.00 - 5.21 x10(6)/[facility] Hemoglobin 10.4(L) 11.7 - 15.5 gm/dL [facility] Hematocrit 31.7(L) 35.7 - 45.8 % [facility] MCV 90.8 82.6 - 94.4 fL [facility] MCH 29.8 27.1 - 32.0 pg [facility] MCHC 32.8 31.7 - 35.0 gm/dL [facility] Platelets 533(H) 145 - 357 x10(3)/[facility] RDWSD 55.2(H) 37.0 - 46.0 fL [facility] RDWCV 16.5(H) 11.5 - 14.1 % [facility] MPV 8.7 7.6 - 12.9 fL [facility] nRBC % Auto 0.0 % [facility] nRBC Abs Auto 0.000 0.000 - 0.000 x10(3)/[facility] Blood specimen (specimen) 09/20/2017 9:00 AM EDT 09/20/2017 9:29 AM EDT Narrative Resulting Agency Comment Spec In Lab Sally Ren PICKLE SORTER HEMATOLOGY ORDERABL ES [facility] [place] [address] * (ABNORMAL) Comprehensive metabolic panel (non-fasting) (09/20/2017 9:00 AM EDT) Glucose Lvl 141 65 - 199 mg/dL [facility] Comment:Diabetes: >=200 mg/d L plus symptoms BUN 19(H) 8 - 18 mg/dL [facility] Creatinine 1.01 0.70 - 1.20 mg/dL [facility] Sodium 139 135 - 145 mmol/L [facility] Potassium 3.3(L) 3.5 - 5.0 mmol/L [facility] Comment: Please note: ??Patients with WBC >100,000 may have falsely elevated Potassium levels. ??For accurate Potassium quantification in these patients send serum separator tube (gold top) for subsequent determinations. ??Contact the Clinical Chemistry Laboratory if there are any questions. Chloride 98 98 - 107 mmol/L [facility] CO2 27 22 - 31 mmol/L [facility] Anion Gap 14 5 - 15 mmol/L [facility] Calcium 9.6 8.5 - 10.5 mg/dL [facility] Total Protein 6.7 6.1 - 8.0 gm/dL [facility] Albumin 3.8 3.2 - 5.2 gm/dL [facility] AST 16 0 - 30 unit/L [facility] ALT 24 0 - 30 unit/L [facility] Alk Phos 112(H) 40 - 104 unit/L [facility] Total Bilirubin 0.3 0.2 - 1.3 mg/dL [facility] Estimated GFR 63 >=60 mL/min/1. 73 m?? [facility] Comment: The eGFR was calculated using the CKD-EPI equation. As with all creatinine based estimates of kidney function, eGFR values calculated with the CKD-EPI equation are not accurate in patients with acute kidney failure, extremes of body mass or the acutely ill. [email or web address] eGFR 73 >=60 mL/min/1. 73 m?? [facility] Comment: The eGFR was calculated using the CKD-EPI equation. As with all creatinine based estimates of kidney function, eGFR values calculated with the CKD-EPI equation are not accurate in patients with acute kidney failure, extremes of body mass or the acutely ill. [email or web address] Blood specimen (specimen) 09/20/2017 9:00 AM EDT 09/20/2017 9:29 AM EDT Narrative Resulting Agency Comment Spec In Lab Sally Ren PICKLE SORTER CHEMISTRY ORDERABLE S [facility] [place] [address] documented in this encounter Visit Diagnoses Diagnosis Malignant neoplasm of upper-outer quadrant of left breast in female, estrogen receptor positive documented in this encounter Administered Medications Inactive Administered Medications - up to 3 most recent administrations Medication Order MAR Action Action Date Dose Rate Site sodium chloride 0.9 % flush 10 mL 10 mL, Intravenous, EVERY 1 MIN PRN, Starting on Sun09/20/17 at 0849, Until Sun09/21/17 at 0437, To maintain line, Implanted IV Ports- Intermittent Flush; Give before and after medications or transfusions, Routine Given 09/20/2017 9:13 AM EDT 20 mLs documented in this encounter Care Teams Flavoring Machine Operator Relationship Specialty Start Date End Date Trinh Coates MD [address] [place] [address] PCP - General 01/11/10 documented as of this encounter
--- OUTSIDE RECORDS SUMMARY | 2023-09-07 11:31 | XMS_ITS | Encounter Summary ---
Author Organization [facility] [place] [address] Care Team Providers Care Cutter And Edge Trimmer Name Role Phone Trinh Coates MD Primary Care Provider [phone] Encounter Details Date Type Department Care Team (Latest Contact Info) Description 08/09/2017 9:44 AM EDT - 08/09/2017 11:59 PM EDT Hospital Encounter Hematology [place] [address] Malignant neoplasm of upper-outer quadrant of left [...] q 6 hrs daily as needed 11/15/2015 atorvastatin (LIPITOR) 20 mg Tablet Take 1 [...] DR tablet 1 CAP daily 03/27/2014 024 potassium chloride (KLOR-CON M20) 20 mEq Tab Sust.Rel. Particle/Crystal Take 3 tablets by mouth daily for 30 days. 90 tablet 2 08/03/2017 09/02/2017 prochlorperazine (COMPAZINE) 10 mg Tablet Take 1 tablet by mouth every 6 hours as needed for Nausea. 30 tablet 06/01/2017 11/30/2017 ondansetron (ZOFRAN) 4 mg Tablet Take 1 tablet by mouth every 8 hours as needed for Nausea. 20 tablet 05/25/2017 11/30/2017 Lactobacillus (BACID) 0.5 mg (100 million cell) Tablet Take 1 tablet by mouth daily. 30 tablet 05/01/2017 12/12/2017 valsartan-hydrochlorot hiazide (DIOVAN-HCT) 160-12.5 mg Tablet Take 1 tablet by mouth daily. 02/20/2017 10/10/2017 acetaminophen (TYLENOL) 325 mg Tablet Take 2 tablets by mouth every 4 hours as needed for Pain. 11/03/2015 07/25/2022 documented as of this encounter Progress Notes * Lou Hinkle RN - 08/09/2017 10:27 AM EDT Patient Name: Wendy Sandoval Patient Age: 52 y.o. Birthdate: 1965 Admit date: 08/09/2017 Attending Physician: No att. providers found Access visit. See MAR and/or flowsheet. Port accessed, labs obtained, pt tolerated well. documented in this encounter Plan of Treatment Upcoming Encounters Date Type Department Care Team (Late st Contact Info) Description 01/22/2024 10:30 AM EST Appointment Mammography/[place] [address] Ladi Mendosa MD [facility] HEMATOLOGY/[place] [address] 01/30/2024 11:30 AM EST Office Visit Dermatology at [address] [phone] Nilda Luis MD [facility] DR LIDIA AMEZCUA-DERMATOLGY [place], [place] [id number] 02/15/2024 9:30 AM EST Appointment [place] [address] [place] [address] documented as of this encounter Procedures Procedure Name Priority Date/Time Associated Diagnosis Comments SCAN, PERIPHERAL BLOOD STAT 8 10:20 AM EDT HEMOGRAM STAT 08/09/2017 10:20 AM EDT Malignant neoplasm of upper-outer quadrant of left breast in female, estrogen receptor positive DIFFERENTIAL, AUTOMATED STAT 08/09/2017 10:20 AM EDT Malignant neoplasm of upper-outer quadrant of left breast in female, estrogen receptor positive CBC (WITH DIFF) STAT 08/09/2017 10:20 AM EDT Malignant neoplasm of upper-outer quadrant of left breast in female, estrogen receptor positive COMPREHENSIVE METABOLIC PANEL (NON-FASTING) STAT 08/09/2017 10:20 AM EDT Malignant neoplasm of upper-outer quadrant of left breast in female, estrogen receptor positive documented in this encounter Results * Scan, Peripheral Blood (08/09/2017 10:20 AM EDT) Plat Estimate Increased [facility] RBC Morphology Normal [facility] Giant Platelets Less than 1 /HPF [facility] Blood specimen (specimen) 08/09/2017 10:20 AM EDT 08/09/2017 11:04 AM EDT Narrative Resulting Agency Comment Spec In Lab Sally Ren MANAGER OF DISTRIBUTION HEMATOLOGY ORDERABL ES [facility] [place] [address] * (ABNORMAL) Differential, Automated (08/09/2017 10:20 AM EDT) Pathologist [facility] Neutrophils % 61.8 % [facility] Neutr Abs (ANC) 7.02(H) 1.70 - 6.10 x10(3)/mc L [facility] Lymphocytes % 14.6 % [facility] Lymphocytes Abs 1.7 0.9 - 3.2 x10(3)/ L [facility] Monocytes % 12.7 % [facility] Monocyte Abs 1.4(H) 0.3 - 0.9 x10(3)/mc L [facility] Eosinophils % 2.0 % [facility] Eosinophils Abs 0.2 0.0 - 0.4 x10(3)/mc L [facility] Basophils % 2.6 % [facility] Basophils Abs 0.3(H) 0.0 - 0.1 x10(3)/mc L [facility] Immature Gran % 6.30 % [facility] Comment: Immature granulocytes(IG's)percentage and absolute count will include metamyelocytes, myelocytes, and promyelocytes. Blood smears from CBCs yielding IG's will be scanned manually for concordance. If this scan disagrees with the automated IG or if promyelocytes are noted, a manual differential will be performed. Nova Gran Abs 0.72(H) 0.00 - 0.04 x10(3)/ L [facility] Blood specimen (specimen) 08/09/2017 10:20 AM EDT 08/09/2017 11:04 AM EDT Narrative Resulting Agency Comment Spec In Lab Sally Ren MANAGER OF DISTRIBUTION HEMATOLOGY ORDERABL ES [facility] [place] [address] * (ABNORMAL) Hemogram (08/09/2017 10:20 AM EDT) WBC 11.4(H) 4.0 - 9.5 x10(3)/[facility] RBC 4.33 4.00 - 5.21 x10(6)/[facility] Hemoglobin 12.9 11.7 - 15.5 gm/dL [facility] Hematocrit 38.7 35.7 - 45.8 % [facility] MCV 89.4 82.6 - 94.4 [facility] MCH 29.8 27.1 - 32.0 pg [facility] MCHC 33.3 31.7 - 35.0 gm/dL [facility] Platelets 486(H) 145 - 357 x10(3)/[facility] RDWSD 44.2 37.0 - 46.0 [facility] RDWCV 13.7 11.5 - 14.1 % [facility] MPV 8.8 7.6 - 12.9 [facility] nRBC % Auto 0.2 % [facility] nRBC Abs Auto 0.020(H) 0.000 - 0.000 x10(3)/[facility] Blood specimen (specimen) 08/09/2017 10:20 AM EDT 08/09/2017 11:04 AM EDT Narrative Resulting Agency Comment Spec In Lab Sally Ren MANAGER OF DISTRIBUTION HEMATOLOGY ORDERABL ES [facility] [address] [place] [address] * (ABNORMAL) Comprehensive metabolic panel (non-fasting) (08/09/2017 10:20 AM EDT) Glucose Lvl 155 65 - 199 mg/dL [facility] Comment:Diabetes: >=200 mg/d L plus symptoms BUN 18 8 - 18 mg/dL [facility] Creatinine 0.95 0.70 - 1.20 mg/dL [facility] Sodium 140 135 - 145 mmol/L [facility] Potassium 3.0(Criti kee) 3.5 - 5.0 mmol/L [facility] Comment: Result rechecked. Called by: ROXANNE, Read back by: Argentina Conner, Date/Time:08/09/17 11:57. Please note: ??Patients with WBC >100,000 may have falsely elevated Potassium levels. ??For accurate Potassium quantification in these patients send serum separator tube (gold top) for subsequent determinations. ??Contact the Clinical Chemistry Laboratory if there are any questions. Chloride 98 98 - 107 mmol/L [facility] CO2 27 22 - 31 mmol/L [facility] Anion Gap 15 5 - 15 mmol/L [facility] Calcium 8.9 8.5 - 10.5 mg/dL [facility] Total Protein 6.9 6.1 - 8.0 gm/dL [facility] Albumin 4.1 3.2 - 5.2 gm/dL [facility] AST 16 0 - 30 unit/L [facility] ALT 21 0 - 30 unit/L [facility] Alk Phos 138(H) 40 - 104 unit/L [facility] Total Bilirubin <0.2(L) 0.2 - 1.3 mg/dL [facility] Estimated GFR 68 >=60 mL/min/1. 73 m?? [facility] Comment: The eGFR was calculated using the CKD-EPI equation. As with all creatinine based estimates of kidney function, eGFR values calculated with the CKD-EPI equation are not accurate in patients with acute kidney failure, extremes of body mass or the acutely ill. [email or web address]/itravelnkdep [email or web address]/itravelnkf eGFR 79 >=60 mL/min/1. 73 m?? [facility] Comment: The eGFR was calculated using the CKD-EPI equation. As with all creatinine based estimates of kidney function, eGFR values calculated with the CKD-EPI equation are not accurate in patients with acute kidney failure, extremes of body mass or the acutely ill. [email or web address]ravelnkdep [email or web address]ravelnkf Blood specimen (specimen) 08/09/2017 10:20 AM EDT 08/09/2017 11:04 AM EDT Narrative Resulting Agency Comment Spec In Lab Sally Ren MANAGER OF DISTRIBUTION CHEMISTRY ORDERABLE S [facility] [place] [id number] documented in this encounter Visit Diagnoses Diagnosis Malignant neoplasm of upper-outer quadrant of left breast in female, estrogen receptor positive- Primary documented in this encounter Administered Medications Inactive Administered Medications - up to 3 most recent administrations Medication Order MAR Action Action Date Dose Rate Site sodium chloride 0.9 % flush 20 mL 20 mL, Intravenous, ONCE, 1 dose, On Sosa 08/09/17 at 1015, Routine Given 08/09/2017 10:20 AM EDT 20 mLs documented in this encounter Care Teams Cutter And Edge Trimmer Relationship Specialty Start Date End Date Trinh Coates MD [address] [place] [address] PCP - General 01/11/10 documented as of this encounter
--- OUTSIDE RECORDS SUMMARY | 2023-09-07 11:31 | XMS_ITS | Encounter Summary ---
Author Organization [facility] [place] [address] Care Team Providers Care Barrer And Tacker Name Role Phone Trinh Coates MD Primary Care Provider [phone] Reason for Visit * Reason Comments Follow Up Surgery f/u expanders Encounter Details Date Type Department Care Team (Late st Contact Info) Description 09/06/2017 9:15 AM EDT Office Visit [place] [address] [facility] [place] [address] S/P breast reconstruction, bilateral; Seroma of breast Social History Tobacco Use [...] this encounter Patient Instructions * Patient Instructions* Andre Gimenez MD - 09/06/2017 9:15 AM EDT Follow Up: 1 week with Jolene, discuss if she can continue chemotherapy Augmentin prescribed Ultrasound guided drainage today Do not proceed with chemotherapy today Continue with blood work today Avoid laying/trauma to left breast documented in this encounter Progress Notes * Andre Gimenez MD - 09/06/2017 9:15 AM EDT Plastic Surgery Follow Up Note Date of surgery: 04/26/17 Procedure(s): Bilateral breast reconstruction with attempted SALVADOR flaps, eventual tissue soubrette placement with [place] Artoura 600 cc expanders placed bilaterally and filled with 450 cc of methyleneblue impregnated saline.) Complications: right parietal and visceral pleural tear, arterial flap failure bilaterally Date of surgery: 06/22/17 Procedure(s) left breast wound debridement, excision and closure. Debridement of umbilicus. Deflation of soubrette volume, This leaves 450 cc in the left tissue soubrette and 500 cc on the right side Chemotherapy: yes Radiation: TBD HPI: Pt reports she has been well. The patient is accompanied by her son for today's visit. She has2 more months of chemotherapy, her last being 2 weeks ago and her next one today. Her left breast has been swollen for 3 days and is tender. The patient denies doing any vigorous activity or trauma to the breast. She has been sleeping a lot, but reports that she sleeps on her stomach. Her eyes havebeen itchy and goopy and draining. The patient states she has Allergies Allergen Reactions ??? Zoloft [Sertraline] PSORIASIS FLARE Examination: Patient is alert, conversant, comfortable, ambulating Has new onset of swelling of left breast, appears consistent with a seroma Erythema in the central portion of the breast Denies fevers or chills No open wound or evidence of deep seeded infection No collection, no erythema, no evidence of cellulitis Impression: Wendy Sandoval is a 52 y.o. female who was seen today for follow- up after the above procedure. Please see the operative note for details. The patient has a new onset of swelling of herleft breast that appears consistent with a seroma. I recommend antibiotics for the patient and an ultrasound guided drainage today. I do not recommend she have chemotherapy today. Plan: Follow Up: 1 week with Jolene, discuss if she can continue chemotherapy Augmentin prescribed Ultrasound guided drainage today Do not proceed with chemotherapy today Continue with blood work today Avoid laying/trauma to left breast I, Sanket Davila, have performed the documentation for this encounter in the presence of and acting as a scribe for Andre Gimenez MD I performed the services which were documented by the scribe, and I agree with the accuracy of the documentation in this encounter. Andre Gimenez MD documented in this encounter Plan of Treatment Upcoming Encounters Date Type Department Care Team (Late st Contact Info) Description 01/22/2024 10:30 AM EST Appointment Mammography/[place] [phone] [facility] HEMATOLOGY/[place] [address] 01/30/2024 11:30 AM EST Office Visit Dermatology at [address] [place] [address] [facility] [address] [place] [address] 02/15/2024 9:30 AM EST Appointment [place] [phone] [place] [address] documented as of this encounter Results * US Breast Limited Left (09/06/2017 11:29 AM EDT) Anatomical Region Laterality Modality Breast Left Mammography Narrative 09/06/2017 11:55 AM EDT DIAGNOSTIC ULTRASOUND OF THE LEFT BREAST CLINICAL HISTORY: Possible left breast seroma s/p left breast reconstruction.. Prior drain in June 2017 4 seroma COMPARISONS: 07/03/2017 AREA SCANNED: Entire LEFT breast reconstruction FINDINGS: There is a approximately 9 x 2 x 15 cm fluid collection lying beneath the central scar and extending superiorly and to a lesser degree inferiorly anterior to the implant. It contains fibrous mobile septae and low level echoes. It is consistent with a recurrent seroma. INTERPRETATION: BIRADS 2. Benign finding MANAGEMENT: She was immediately referred to interventional radiology for insertion of a drain Andre Gimenez MD IMG MAMMO ORDERABLES documented in this encounter Visit Diagnoses Diagnosis S/P breast reconstruction, bilateral Breast replaced by other means Seroma of breast S/P breast reconstruction, bilateral Breast replaced by other means Seroma of breast documented in this encounter Care Teams Barrer And Tacker Relationship Specialty Start Date End Date Trinh Coates MD [address] [place] [address] PCP - General 01/11/10 documented as of this encounter
--- OUTSIDE RECORDS SUMMARY | 2023-09-07 11:31 | XMS_ITS | Encounter Summary ---
Author Organization [facility] Address [facility] [place] [address] Care Team Providers Care Pantry Chef Name Role Phone Trinh Coates MD Primary Care Provider [phone] Reason for Visit * Treatment/Therapy Plan Authorization (Routine) - Closed Specialty Diagnoses / Procedures Referred By Diamante marin Referred To Contact Hematology and Oncology Diagnoses Malignant neoplasm of upper-outer quadrant of left breast in female, estrogen receptor positive Procedures TC PALONOSETRON HCL, 25MCG, INJECTION (ALOXI) TC DOXORUBICIN HCL, 10MG, INJECTION (ADRIAMYCIN) TC CYCLOPHOSPHAMIDE, 100MG (CYTOXAN) TC PEGFILGRASTIM, 6MG, INJECTION Gustavo Mota MD [facility] DR HEMATOLOGY/[place] [address] [address] Referral ID Status Reason Start Date Expiration Date Visits Re quested Visits Authorized [id number] Closed 07/02/2017 07/02/2018 12 12 Encounter Details Date Type Department Care Team (Latest Contact Info) Description 08/23/2017 10:09 AM EDT - 08/23/2017 11:59 PM EDT Hospital Encounter Hematology [place] [address] Malignant neoplasm of upper-outer quadrant [...] DR tablet 1 CAP daily 03/27/2014 024 omeprazole (PRILOSEC) 40 mg Capsule, Delayed Release(E.C.) Take 1 capsule by mouth daily. 90 capsule 11 08/23/2017 08/23/2018 potassium chloride (KLOR-CON M20) 20 mEq Tab [...] Progress Notes * Jenni Solo RN - 08/23/2017 10:39 AM EDT Patient Name: Wendy Sandoval Patient Age: 52 y.o. Birthdate: 1965 Admit date: 08/23/2017 Attending Physician: Donna att. providers found Access visit. See MAR and/or flowsheet. documented in this encounter Plan of Treatment Upcoming Encounters Date Type Department Care Team (Late st Contact Info) Description 01/22/2024 10:30 AM EST Appointment Mammography/[place] [address] Ladi Mendosa MD [facility] HEMATOLOGY/[place] [address] 01/30/2024 11:30 AM EST Office Visit Dermatology at [facility] [address] [place] [phone] Nilda Luis MD [facility] [address] [place] [address] 02/15/2024 9:30 AM EST Appointment [place] [address] [place] [address] documented as of this encounter Procedures Procedure Name Priority Date/Time Associated Diagnosis Comments SCAN, PERIPHERAL BLOOD STAT 8 10:35 AM EDT HEMOGRAM STAT 08/23/2017 10:35 AM EDT Malignant neoplasm of upper-outer quadrant of left breast in female, estrogen receptor positive DIFFERENTIAL, AUTOMATED STAT 08/23/2017 10:35 AM EDT Malignant neoplasm of upper-outer quadrant of left breast in female, estrogen receptor positive CBC (WITH DIFF) STAT 08/23/2017 10:35 AM EDT Malignant neoplasm of upper-outer quadrant of left breast in female, estrogen receptor positive COMPREHENSIVE METABOLIC PANEL (NON-FASTING) STAT 08/23/2017 10:35 AM EDT Malignant neoplasm of upper-outer quadrant of left breast in female, estrogen receptor positive documented in this encounter Results * Scan, Peripheral Blood (08/23/2017 10:35 AM EDT) Plat Estimate Increased [facility] RBC Morphology Normal [facility] Blood specimen (specimen) 08/23/2017 10:35 AM EDT 08/23/2017 10:54 AM EDT Narrative Resulting Agency Comment Spec In Lab Gustavo Mota MD HEMATOLOGY ORDERABLE S [facility] [place] [address] * (ABNORMAL) Differential, Automated (08/23/2017 10:35 AM EDT) Neutrophils % 70.0 % [facility] Neutr Abs (ANC) 11.42(H) 1.70 - 6.10 x10(3)/mc L [facility] Lymphocytes % 7.6 % [facility] Lymphocytes Abs 1.2 0.9 - 3.2 x10(3)/[facility] Monocytes % 8.0 % [facility] Monocyte Abs 1.3(H) 0.3 - 0.9 x10(3)/[facility] Eosinophils % 2.5 % [facility] Eosinophils Abs 0.4 0.0 - 0.4 x10(3)/[facility] Basophils % 1.4 % [facility] Basophils Abs 0.2(H) 0.0 - 0.1 x10(3)/[facility] Immature Gran % 10.50 % [facility] Comment: Immature granulocytes(IG's)percentage and absolute count will include metamyelocytes, myelocytes, and promyelocytes. Blood smears from CBCs yielding IG's will be scanned manually for concordance. If this scan disagrees with the automated IG or if promyelocytes are noted, a manual differential will be performed. Nova Gran Abs 1.71(H) 0.00 - 0.04 x10(3)/[facility] Blood specimen (specimen) 08/23/2017 10:35 AM EDT 08/23/2017 10:54 AM EDT Narrative Resulting Agency Comment Spec In Lab Gustavo Mota MD HEMATOLOGY ORDERABLE S [facility] [place] [address] * (ABNORMAL) Hemogram (08/23/2017 10:35 AM EDT) WBC 16.3(H) 4.0 - 9.5 x10(3)/[facility] RBC 3.96(L) 4.00 - 5.21 x10(6)/[facility] Hemoglobin 11.7 11.7 - 15.5 gm/dL [facility] Hematocrit 35.3(L) 35.7 - 45.8 % [facility] MCV 89.1 82.6 - 94.4 fL [facility] MCH 29.5 27.1 - 32.0 pg [facility] MCHC 33.1 31.7 - 35.0 gm/dL [facility] Platelets 205 145 - 357 x10(3)/[facility] RDWSD 47.4(H) 37.0 - 46.0 [facility] RDWCV 14.8(H) 11.5 - 14.1 % [facility] MPV 9.3 7.6 - 12.9 [facility] nRBC % Auto 0.0 % [facility] nRBC Abs Auto 0.000 0.000 - 0.000 x10(3)/[facility] Blood specimen (specimen) 08/23/2017 10:35 AM EDT 08/23/2017 10:54 AM EDT Narrative Resulting Agency Comment Spec In Lab Gustavo Mota MD HEMATOLOGY ORDERABLE S [facility] [place] [address] * (ABNORMAL) Comprehensive metabolic panel (non-fasting) (08/23/2017 10:35 AM EDT) Glucose Lvl 178 65 - 199 mg/dL [facility] Comment:Diabetes: >=200 mg/d L plus symptoms BUN 23(H) 8 - 18 mg/dL [facility] Creatinine 1.28(H) 0.70 - 1.20 mg/dL [facility] Sodium 141 135 - 145 mmol/L [facility] Potassium 3.5 3.5 - 5.0 mmol/L [facility] Comment: Please note: ??Patients with WBC >100,000 may have falsely elevated Potassium levels. ??For accurate Potassium quantification in these patients send serum separator tube (gold top) for subsequent determinations. ??Contact the Clinical Chemistry Laboratory if there are any questions. Chloride 100 98 - 107 mmol/L [facility] CO2 26 22 - 31 mmol/L [facility] Anion Gap 15 5 - 15 mmol/L [facility] Calcium 9.1 8.5 - 10.5 mg/dL [facility] Total Protein 6.8 6.1 - 8.0 gm/dL [facility] Albumin 3.8 3.2 - 5.2 gm/dL [facility] AST 14 0 - 30 unit/L [facility] ALT 16 0 - 30 unit/L [facility] Alk Phos 151(H) 40 - 104 unit/L [facility] Total Bilirubin 0.2 0.2 - 1.3 mg/dL [facility] Estimated GFR 47(L) >=60 mL/min/1. 73 m?? [facility] Comment: The eGFR was calculated using the CKD-EPI equation. As with all creatinine based estimates of kidney function, eGFR values calculated with the CKD-EPI equation are not accurate in patients with acute kidney failure, extremes of body mass or the acutely ill. [email or web address]/SiteBrainsnkdep http://[employer]/DHMCnkf eGFR 55(L) >=60 mL/min/1. 73 m?? [facility] Comment: The eGFR was calculated using the CKD-EPI equation. As with all creatinine based estimates of kidney function, eGFR values calculated with the CKD-EPI equation are not accurate in patients with acute kidney failure, extremes of body mass or the acutely ill. http://[employer]/DHnkdep http://[employer]/DHMCnkf Blood specimen (specimen) 08/23/2017 10:35 AM EDT 08/23/2017 10:54 AM EDT Narrative Resulting Agency Comment Spec In Lab Gustavo Mota MD CHEMISTRY ORDERABLES [facility] [address] [place] [address] documented in this encounter Visit Diagnoses Diagnosis Malignant neoplasm of upper-outer quadrant of left breast in female, estrogen receptor positive documented in this encounter Administered Medications Inactive Administered Medications - up to 3 most recent administrations Medication Order MAR Action Action Date Dose Rate Site sodium chloride 0.9 % flush 5-20 mL 5-20 mL, Intravenous, EVERY 1 MIN PRN, Starting on Sosa 08/23/17 at 1014, Until Sun08/24/17 at 0438, Line Care, Flush pertains to all indwelling lines. Flush per protocol found in the job aid using the link provided on this medication record. Refer to Intravenous (IV) Job Aid: Adult Flushing & Catheter Care (4423) job aid for additional information regarding guidelines and administration., Routine Given 08/23/2017 10:39 AM EDT 20 mLs documented in this encounter Care Teams Pantry Chef Relationship Specialty Start Date End Date Trinh Coates MD [facility] [address] [place] [address] PCP - General 01/11/10 documented as of this encounter
--- OUTSIDE RECORDS SUMMARY | 2023-09-07 11:31 | XMS_ITS | Encounter Summary ---
Author Organization [facility] Address [facility] [place] [address] Care Team Providers Care Cattle Manager Name Role Phone Trinh Coates MD Primary Care Provider [phone] Encounter Details Date Type Department Care Team (Late st Contact Info) Description 09/19/2017 Orders Only Hematology [place] [phone] Sally Ren APRN [facility] [place] [address] Social History Tobacco Use Types Packs/Day Years [...] 10:30 AM EST Appointment Mammography/[place] [address] Ladi Mendosa MD [facility] HEMATOLOGY/[place] [address] 01/30/2024 11:30 AM EST Office Visit Dermatology at [facility] [address] [place] [address] Nilda Luis MD [facility] DR [place] [address] 02/15/2024 9:30 AM EST Appointment [place] [phone] [place] [address] documented as of this encounter Visit Diagnoses Not on filedocumented in this encounter Care Teams Cattle Manager Relationship Specialty Start Date End Date Trinh Coates MD [facility] [address] [address] PCP - General 01/11/10 documented as of this encounter
--- OUTSIDE RECORDS SUMMARY | 2023-09-07 11:31 | XMS_ITS | Encounter Summary ---
Author Organization [facility] Address [facility] Margarita [facility] [place] [address] Care Team Providers Care Social Media Content Specialist Name Role Phone Trinh Coates MD Primary Care Provider [phone] Reason for Visit * Reason Comments Chemotherapy * Treatment/Therapy Plan Authorization (Routine) - Closed Specialty Diagnoses / Procedures Referred By Diamante marin Referred To Contact Hematology and Oncology Diagnoses Malignant neoplasm of upper-outer quadrant of left breast in female, estrogen receptor positive Procedures TC PALONOSETRON HCL, 25MCG, INJECTION (ALOXI) TC DOXORUBICIN HCL, 10MG, INJECTION (ADRIAMYCIN) TC CYCLOPHOSPHAMIDE, 100MG (CYTOXAN) TC PEGFILGRASTIM, 6MG, INJECTION Gustavo Mota MD [facility] DR HEMATOLOGY/[place] [address] [facility] [address] [place] [address] Referral ID Status Reason Start Date Expiration Date Visits Re quested Visits Authorized [id number] Closed 07/02/2017 07/02/2018 12 12 Encounter Details Date Type Department Care Team (Latest Contact Info) Description 08/23/2017 10:09 AM EDT - 08/23/2017 11:59 PM EDT Hospital Encounter Hematology [place] [address] Malignant neoplasm of upper-outer quadrant [...] Progress Notes * Jimbo Freire RN - 08/23/2017 1:39 PM EDT Patient Name: Wendy Sandoval Patient Age: 52 y.o. Birthdate: 1965 Admit date: 08/23/2017 Attending Physician: No att. providers found Wendy Sandoval, 52 y.o. female with diagnosis of Breast Cancer is here for chemotherapy infusionof Cyclophasmide and Doxorubicin. PROTOCOL: n/a CYCLE: 3 WEEK: n/a DAY:1 S: Pt. offers no complaints at this time. O: Chemotherapy orders independently verified for correct drug name, route and dosage per patient'sheight, weight and BSA by Jimbo Freire RN and onsite pharmacist REACTIONS (DESCRIPTION, TIME, INTERVENTION AND EFFECTIVENESS) none A: Pt. Tolerated treatment well. Wendy Sandoval confirms that all questions and issues have beenaddressed. P: Return to clinic as scheduled documented in this encounter Plan of Treatment Upcoming Encounters Date Type Department Care Team (Late st Contact Info) Description 01/22/2024 10:30 AM EST Appointment Mammography/[place] [phone] Ladi Mendosa MD [facility] DR HEMATOLOGY/[place] [address] 01/30/2024 11:30 AM EST Office Visit Dermatology at [facility] [address] [place] [phone] Nilda Luis MD [facility] [address] [address] 02/15/2024 9:30 AM EST Appointment [place] [phone] [place] [address] documented as of this encounter Visit Diagnoses Diagnosis Malignant neoplasm of upper-outer quadrant of left breast in female, estrogen receptor positive documented in this encounter Administered Medications Inactive Administered Medications - up to 3 most recent administrations Medication Order MAR Action Action Date Dose Rate Site cyclophosphamide (CYTOXAN) 1,098 mg in sodium chloride 0.9% 304.9 mL chemo infusion 1,098 mg (600 mg/m2/dose ? 1.83 m2 Treatment Plan BSA from Recorded weight), Intravenous, ONCE, 1 dose, On Sosa 08/23/17 at 1345, Administer over 30 Minutes, Warning Vesicant/Irritant Medication New Bag 08/23/2017 2:13 PM EDT 1,098 mg 609.8 mL/hr dexamethasone (DECADRON) injection 10 mg 10 mg, Intravenous, ONCE, 1 dose, On Sosa 08/23/17 at 1245, Administer prior to chemotherapy Given 08/23/2017 1:32 PM EDT 10 mg DOXOrubicin (ADRIAMYCIN) chemo injection 109.8 mg 109.8 mg (60 mg/m2/dose ? 1.83 m2 Treatment Plan BSA from Recorded weight), Intravenous, ONCE, 1 dose, On Sosa 08/23/17 at 1345, Administer over 3 Minutes, Administer each syringe over a minimum of 3 minutes per syringe. Given 08/23/2017 2:18 PM EDT 109.8 mg 1098 mL/hr fosaprepitant (EMEND) 150 mg in sodium chloride 0.9% 155 mL infusion 150 mg, Intravenous, at 310 mL/hr, Administer over 30 Minutes, ONCE, 1 dose, On Sosa 08/23/17 at 1245, Routine New Bag 08/23/2017 1:33 PM EDT 150 mg 310 mL/hr heparin, porcine 100 unit/mL flush 500 Units 500 Units, Intravenous, ONCE PRN, Starting on Sosa 08/23/17 at 1229, Until Sun08/24/17 at 0438, Line Care, Refer to Intravenous (IV) Procedure: Accessing Implanted Vascular Access Devices (374) procedure and/or Intravenous (IV) Job Aid: Adult Flushing & Catheter Care (7324) job aid for additional information regarding guidelines and administration., Routine Given 08/23/2017 3:09 PM EDT 500 Units LORazepam (ATIVAN) tablet 0.5 mg 0.5 mg, Oral, ONCE, 1 dose, On Sosa 08/23/17 at 1245, Administer prior to chemotherapy, Routine Given 08/23/2017 1:26 PM EDT 0.5 mg palonosetron (ALOXI) injection 0.5 mg 0.5 mg, Intravenous, ONCE, 1 dose, On Sosa 08/23/17 at 1245, Administer over 30 seconds. Administer prior to chemotherapy, Routine Given 08/23/2017 1:28 PM EDT 0.5 mg pegfilgrastim (NEULASTA ONPRO) injection kit 6 mg, Subcutaneous, ONCE, 1 dose, On Sosa 08/23/17 at 1245, Allow the prefilled syringe co-packaged with the on-body injector to reach room temperature at least 30 minutes prior to administration., Routine, This agent is restricted to outpatient use. Is this drug being given as an outpatient? Yes Given 08/23/2017 3:15 PM EDT 6 mg prochlorperazine (COMPAZINE) tablet 10 mg 10 mg, Oral, ONCE, 1 dose, On Sosa 08/23/17 at 1245, Maximum dose: 50 mg / 24 hrs, Routine Given 08/23/2017 1:26 PM EDT 10 mg sodium chloride 0.9 % flush 5-20 mL 5-20 mL, Intravenous, EVERY 1 MIN PRN, Starting on Sosa 08/23/17 at 1229, Until Sun08/24/17 at 0438, Line Care, Flush pertains to all indwelling lines. Flush per protocol found in the job aid using the link provided on this medication record. Refer to Intravenous (IV) Job Aid: Adult Flushing & Catheter Care (1977) job aid for additional information regarding guidelines and administration., Routine Given 08/23/2017 3:09 PM EDT 20 mLs documented in this encounter Care Teams Social Media Content Specialist Relationship Specialty Start Date End Date Trinh Coates MD [facility] [address] [facility] [address] [place] [address] PCP - General 01/11/10 documented as of this encounter
--- OUTSIDE RECORDS SUMMARY | 2023-09-07 11:31 | XMS_ITS | Encounter Summary ---
Author Organization Count Includes [facility] Address [facility] [place] [address] Care Team Providers Care Side Laster Name Role Phone Trinh Coates MD Primary Care Provider [phone] Reason for Visit * Reason Comments Follow-up Encounter Details Date Type Department Care Team (Latest Contact Info) Description 09/06/2017 1:00 PM EDT Office Visit Hematology [place] [address] Sally Ren APRN [facility] [place] [address] Malignant neoplasm of upper-outer quadrant of left breast in female, estrogen receptor positive; Bacterial conjunctivitis Social History Tobacco Use Types Packs/Day Years [...] Sign Reading Time Taken Comments Blood Pressure 162/104 09/06/2017 3:13 PM EDT Pulse 89 09/06/2017 3:13 PM EDT Temperature 37.1 ??C (98.8 ??F) 09/06/2017 3:13 PM ED T Respiratory Rate 18 09/06/2017 3:13 PM EDT Oxygen Saturation 99% 09/06/2017 3:13 PM EDT Inhaled Oxygen Concentration - - Weight 79.1 kg (174 lb 6.4 oz) 09/06/2017 3:13 P M EDT Height 157.2 cm (5' 1.89) 09/06/2017 3:13 PM ED T Body Mass Index 32.01 09/06/2017 3:13 PM EDT documented in this encounter Progress Notes * Sally Ren, CORPORATE COMPLIANCE OFFICER - 09/06/2017 1:00 PM EDT Subjective: Patient ID: Wendy Sandoval is a 52 y.o. female here for cycle 4 of adjuvant chemotherapy today. Interval Hx: Wendy returns in follow up with her son today. Her nausea was better controlled with cycle 3. Shehas generally been feeling worn out and naps frequently. Her appetite is fair. Her bowels are regular. She does note that she gets up to go to the bathroom frequently at night. Her eyes have been hurting and she has green discharge in the morning. She reports they burn. She developed swelling of her left breast about 4 days ago. She was seen in plastics earlier today and found to have a large seroma. She has a drain in place and about 350 cc of fluid was drawn off. ROSEMARY Nguyen is a 51-year-old woman with a recent diagnosis of node positive breast cancer. She presented due to screening mammography, 03/08, this revealing a suspicious 2 cm nodule in the upper outer quadrant left breast. Right breast was unremarkable. Core biopsy demonstrated invasive cancer, ER/WV positive, HER- 2/pat negative. Breast MRI demonstrated additional findings as per the full report. She was seen in surgery and has undergone now bilateral MRM and SALVADOR reconstruction, as noted below she does have a significant family history of breast cancer. Her post-op course was complicated by infection and delayed wound healing. Review of Systems Constitutional: Positive for activity change and fatigue. Negative for chills and fever. HENT: Negative. Eyes: Positive for pain, discharge, redness and itching. Respiratory: Negative for cough and shortness of breath. Cardiovascular: Negative. Gastrointestinal: Negative. Endocrine: Negative. Genitourinary: Nocturia Musculoskeletal: Negative. Skin: Negative. Allergic/Immunologic: Negative. Neurological: Negative. Hematological: Negative. Psychiatric/Behavioral: Negative. Objective: Physical Exam Constitutional: She is oriented to person, place, and time. She appears well- developed and well-nourished. No distress. HENT: Nose: Nose normal. Mouth/Throat: Oropharynx is clear and moist. No oropharyngeal exudate. Eyes: EOM are normal. Pupils are equal, round, and reactive to light. Right eye exhibits discharge.Left eye exhibits discharge. Right conjunctiva is injected. Left conjunctiva is injected. No scleral icterus. Neck: Neck supple. Cardiovascular: [...] Her behavior is normal. Most Recent Vitals: 09/06/17 1513 BP: (!) 162/104 Pulse: 89 Resp: 18 Temp: 37.1 ??C (98.8 ??F) SpO2: 99% Recent Results (from the past 72 hour(s)) Comprehensive metabolic panel (non-fasting) Result Value Ref Range Glucose Lvl 151 65 - 199 mg/dL BUN 17 8 - 18 mg/dL Creatinine 1.03 0.70 - 1.20 mg/dL Sodium 142 135 - 145 mmol/L Potassium 3.1 (L) 3.5 - 5.0 mmol/L Chloride 99 98 - 107 mmol/L CO2 26 22 - 31 mmol/L Anion Gap 17 (H) 5 - 15 mmol/L Calcium 8.6 8.5 - 10.5 mg/dL Total Protein 6.9 6.1 - 8.0 gm/dL Albumin 3.9 3.2 - 5.2 gm/dL AST 12 0 - 30 unit/L ALT 16 0 - 30 unit/L Alk Phos 152 (H) 40 - 104 unit/L Total Bilirubin <0.2 (L) 0.2 - 1.3 mg/dL eGFR 62 >=60 mL/min/1.73 m?? eGFR 71 >=60 mL/min/1.73 m?? Hemogram Result Value Ref Range WBC 19.1 (H) 4.0 - 9.5 x10(3)/mcL RBC 3.70 (L) 4.00 - 5.21 x10(6)/mcL Hemoglobin 11.4 (L) 11.7 - 15.5 gm/dL Hematocrit 33.0 (L) 35.7 - 45.8 % MCV 89.2 82.6 - 94.4 fL MCH 30.8 27.1 - 32.0 pg MCHC 34.5 31.7 - 35.0 gm/dL Platelets 251 145 - 357 x10(3)/mcL RDWSD 49.5 (H) 37.0 - 46.0 fL RDWCV 15.9 (H) 11.5 - 14.1 % MPV 9.4 7.6 - 12.9 fL nRBC % Auto 0.2 % nRBC Abs Auto 0.040 (H) 0.000 - 0.000 x10(3)/mcL Differential, Manual Result Value Ref Range Neutrophil % 78 % Lymphocyte % 8 % Monocyte % 3 % Eosinophil % 4 % Metamyelo % 7 % Neutrophil Abs 14.9 (H) 1.5 - 6.3 x10(3)/mcL Neutr Abs (ANC) 14.91 (H) 1.70 - 6.10 x10(3)/mcL Lymphocyte Abs 1.5 1.0 - 3.6 x10(3)/mcL Monocyte Abs 0.6 0.2 - 1.0 x10(3)/mcL Eosinophil Abs 0.8 (H) 0.0 - 0.5 x10(3)/mcL Metamyelo Abs 1.3 (H) 0.0 - 0.0 x10(3)/mcL Tot Diff Cell Ct 100 Plat Estimate Normal RBC Morphology Normal Giant Platelets Less than 1 /HPF Body Fluid Culture, Aerobic Result Value Ref Range Body Fluid Culture Few Gram Negative Rods (A) Gram Stain (A) Cytocentrifuge Gram Stain performed Many White Blood Cells seen Rare Gram Positive Cocci seen Organism Gram Positive Cocci (A) Anaerobic Culture Result Value Ref Range Anaerobic Culture No anaerobic organisms isolated to date Assessment and Plan: Wendy Sandoval is a 52 y.o. with ER/WV positive, HER-2/pat negative left breast cancer. She is s/p bilateral MRM with attempted SALVADOR flap reconstruction. This failed and she has expanders in place. This was complicated by delayed wound healing and infection. She had cycle 3 of AC 2 weeks ago. She had slightly better control of nausea. She had been feeling very fatigued and naps frequently. 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 She had a drain put in in IR. She is starting Augmentin today. In addition she has bacterial conjunctivitis. I have sent a prescription for polytrim to her pharmacy. Wendy has been taking her diuretic containing bp medication atnight. I have asked her to take this in the a.m to decrease her nocturia. She has poor blood pressure control and I will make a second call to her primary care office for management. Her labs are as above and notable for decreased potassium. She admittedly has not been taking the prescribed potassium because her pharmacy gave her a different brand and they are hard to swallow. I have asked her tobreak them in half and put in applesauce. I will hold her chemotherapy today. She will follow up in2 weeks as scheduled for consideration of cycle 4 AC. All questions answered. She will call in the interim with concerns. Sally Ren APRN documented in this encounter Plan of Treatment Upcoming Encounters Date Type Department Care Team (Late st Contact Info) Description 01/22/2024 10:30 AM EST Appointment Mammography/[place] [address] Ladi Mendosa MD [facility] [place]ATOLOG[place] [address] 01/30/2024 11:30 AM EST Office Visit Dermatology at [facility] [address] [place] [address] Nilda Luis MD [facility] [address] [place] [address] 02/15/2024 9:30 AM EST [place] [address] [place] [address] documented as of this encounter Visit Diagnoses Diagnosis Malignant neoplasm of upper-outer quadrant of left breast in female, estrogen receptor positive Bacterial conjunctivitis Other conjunctivitis documented in this encounter Care Teams Side Laster Relationship Specialty Start Date End Date Trinh Coates MD [facility] [address] [place] [address] PCP - General 01/11/10 documented as of this encounter
--- OUTSIDE RECORDS SUMMARY | 2023-09-07 11:31 | XMS_ITS | Encounter Summary ---
Author Organization [facility] Address [facility] [place] [address] Care Team Providers Care Drugless Doctor Name Role Phone Trinh Coates MD Primary Care Provider [phone] Encounter Details Date Type Department Care Team (Late st Contact Info) Description 09/28/2017 Orders [place] [phone] Andre Gimenez MD [facility] [place] [address] Social History Tobacco Use Types Packs/Day Years [...] AM EST Appointment Mammography[place] [phone] Ladi Mendosa MD [facility] HEMATOLOGY/[place] [address] 01/30/2024 11:30 AM EST Office Visit Dermatology at [facility] [address] [place] [address] Nilda Luis MD [facility] [address] [address] 02/15/2024 9:30 AM EST [place] [phone] [place] [address] documented as of this encounter Visit Diagnoses Not on filedocumented in this encounter Care Teams Drugless Doctor Relationship Specialty Start Date End Date Trinh Coates MD [facility] [address] [address] PCP - General 01/11/10 documented as of this encounter
--- OUTSIDE RECORDS SUMMARY | 2023-09-07 11:31 | XMS_ITS | Encounter Summary ---
Author Organization [facility] Address [facility] [place] [address] Care Team Providers Care Forming Process Worker Name Role Phone Trinh Coates MD Primary Care Provider [phone] Reason for Visit * Reason Comments Follow-up Encounter Details Date Type Department Care Team (Late st Contact Info) Description 08/23/2017 11:30 AM EDT Office Visit H[place]ology [place] [address] Gustavo Mota MD [facility] HEMATOLOGY/[place] [address] Malignant neoplasm of upper-outer quadrant of left breast in female, estrogen receptor positive; Essential hypertension; Obstructive sleep apnea (adult) (pediatric); Hyperparathyroidism Social History Tobacco Use Types Packs/Day Years [...] Sign Reading Time Taken Comments Blood Pressure 132/89 08/23/2017 11:30 AM EDT Pulse 79 08/23/2017 11:30 AM EDT Temperature 36.8 ??C (98.2 ??F) 08/23/2017 11:30 AM E DT Respiratory Rate 18 08/23/2017 11:30 AM EDT Oxygen Saturation 98% 08/23/2017 11:30 AM EDT Inhaled Oxygen Concentration - - Weight 78.5 kg (173 lb) 08/23/2017 11:30 AM EDT Height 157.2 cm (5' 1.89) 08/23/2017 11:30 AM E DT Body Mass Index 31.75 08/23/2017 11:30 AM EDT documented in this encounter Progress Notes * Gustavo Mota MD - 08/23/2017 11:30 AM EDT Subjective: Patient ID: Wendy Sandoval is a 52 y.o. female, who returns in followup for treatment and management of her breast cancer, and other medical problems. Her past medical history, social history, andfamily history are unchanged from that noted in my prior notes. Problem list: ?? 1. Invasive ductal carcinoma, left breast, 04/08. ?? A. 2.0 cm cancer, high-grade, grade 3. ER/FL +++, HER-2/pat negative, 4/18 nodes (1/ 18 additional nodes with ITC). Alvei negative. B. S/P left MRM and D IEP recon. 1. Abdominal wound dehiscence and possible infection. C. S/P right prophylactic MRM and deep reconstruction, pathology benign. ROSEMARY Nguyen returns in follow-up, for cycle 3 of [...] they were moderately worse with cycle 2. Review of Systems Except as noted above, Wendy Sandovals full remaining review of systems, including constitutional, cardiac, pulmonary, GI, , neurologic, musculskeletal, and all remaining, is otherwise fully unremarkable. Current Outpatient Prescriptions on File Prior to Visit Medication Sig Dispense Refill ??? potassium chloride (KLOR-CON M20) 20 mEq Tab Sust.Rel. Particle/Crystal Take 3 tablets by mouthdaily for 30 days. 90 tablet 2 ??? cholecalciferol, Vitamin D3, (VITAMIN D-3) 5,000 unit Tablet Take by mouth. ??? Lactobacillus (BACID) 0.5 mg (100 million cell) Tablet Take 1 tablet by mouth daily. 30 tablet 0 ??? valsartan-hydrochlorothiazide (DIOVAN-HCT) 160-12.5 mg Tablet Take 1 tablet by mouth daily. ??? atorvastatin (LIPITOR) 20 mg Tablet Take 1 tablet by mouth daily. 0 ??? triamcinolone (ARISTOCORT) 0.5 % Cream Apply topically 3 times daily. ??? DILTiazem (CARDIZEM CD) 240 mg Capsule, [...] for Anxiety. (Patient not taking: Reported on 07/20/2017) 30 tablet 0 ??? prochlorperazine (COMPAZINE) 10 mg Tablet Take 1 tablet by mouth every 6 hours as needed for Nausea. (Patient not taking: Reported on 07/20/2017) 30 tablet 0 ??? ondansetron (ZOFRAN) 4 mg Tablet Take 1 tablet by mouth every 8 hours as needed for Nausea. (Patient not taking: Reported on 07/20/2017) 20 tablet 0 ??? acetaminophen (TYLENOL) 325 mg Tablet Take 2 tablets by mouth every 4 hours as needed for Pain.(Patient not taking: Reported on 07/20/2017) Current Facility-Administered Medications on File Prior to Visit Medication Dose Route Frequency Provider Last Rate Last Dose ??? heparin, porcine 100 unit/mL flush 500 Units 500 Units Intravenous Once PRN Gustavo Mota MD ??? sodium chloride 0.9 % flush 5-20 mL 5-20 mL Intravenous Q1 Min PRN Gustavo Mota MD 20 mL at 08/23/17 1039 ??? pegfilgrastim (NEULASTA ONPRO) injection kit 6 mg Subcutaneous Once Gustavo Mota MD ??? [COMPLETED] fosaprepitant (EMEND) 150 mg in sodium chloride 0.9% 155 mL infusion 150 mg Intravenous Once Gustavo Mota MD Stopped at 08/23/17 1409 ??? [COMPLETED] prochlorperazine (COMPAZINE) tablet 10 mg 10 mg Oral Once Gustavo Mota MD 10 mg at 08/23/17 1326 ??? [COMPLETED] palonosetron (ALOXI) injection 0.5 mg 0.5 mg Intravenous Once Gustavo Mota MD 0.5 mg at 08/23/17 1328 ??? [COMPLETED] dexamethasone (DECADRON) injection 10 mg 10 mg Intravenous Once Gustavo Mota MD 10 mg at 08/23/17 1332 ??? [COMPLETED] LORazepam (ATIVAN) tablet 0.5 mg 0.5 mg Oral Once Gustavo Mota MD 0.5 mg at 08/23/17 1326 ??? [COMPLETED] DOXOrubicin (ADRIAMYCIN) chemo injection 109.8 mg 60 mg/m2/dose (Treatment Plan Recorded) Intravenous Once Gustavo Mota MD 109.8 mg at 08/23/17 1418 ??? [COMPLETED] cyclophosphamide (CYTOXAN) 1,098 mg in sodium chloride 0.9% 304.9 mL chemo [id number] mg/m2/dose (Treatment Plan Recorded) Intravenous Once Gustavo Mota MD Stopped at 08/23/17 1507 ??? sodium chloride 0.9 % flush 5-20 mL 5-20 mL Intravenous Q1 Min PRN Gustavo Mota MD 20 mL at 08/23/17 1509 ??? heparin, porcine 100 unit/mL flush 500 Units 500 Units Intravenous Once PRN Gustavo Mota MD 500 Units at 08/23/17 1509 Objective: Physical Exam Vitals Office Visit from 08/23/2017 in Hematology and Oncology at [place] Weight 78.5 kg (173 lb) Height 157.2 cm (5' 1.89) BSA (Calculated - sq m) 1.85 sq meters BMI (Calculated) 31.75 Temp 36.8 ??C (98.2 ??F) Temp src Temporal Heart Rate 79 Heart Rate Source NIBP Resp 18 BP 132/89 SpO2 98 % Objective: Wendy Sandoval is well appearing and in no acute distress. HEENT: Unremarkable. Musculoskeletal Exam: Normal range of motion, otherwise overall within normal limits as well. Back without CVA or spinal tenderness to percussion or palpation. Chest: Overall clear to percussion and ascultation. Nodes: No peripheral adenopathy is present. Cor: RRR, S1, S2. No murmur, rub, or S3 present. Breast Exam: No concerning palpable findings present on exam. Abdomen: Bowel sounds unremarkable, soft, nontender with no palpable HSM or other abnormalities. Extremities without significant cyanosis,clubbing, or edema. Neurologic Exam: Alert and oriented, grossly nonfocal, cranial nerve's III - XII unremarkable, DTR's symmetric throughout. Recent Results (from the past 24 hour(s)) Comprehensive metabolic panel (non-fasting) Result Value Ref Range Glucose Lvl 178 65 - 199 mg/dL BUN 23 (H) 8 - 18 mg/dL Creatinine 1.28 (H) 0.70 - 1.20 mg/dL Sodium 141 135 - 145 mmol/L Potassium 3.5 3.5 - 5.0 mmol/L Chloride 100 98 - 107 mmol/L CO2 26 22 - 31 mmol/L Anion Gap 15 5 - 15 mmol/L Calcium 9.1 8.5 - 10.5 mg/dL Total Protein 6.8 6.1 - 8.0 gm/dL Albumin 3.8 3.2 - 5.2 gm/dL AST 14 0 - 30 unit/L ALT 16 0 - 30 unit/L Alk Phos 151 (H) 40 - 104 unit/L Total Bilirubin 0.2 0.2 - 1.3 mg/dL eGFR 47 (L) >=60 mL/min/1.73 m?? eGFR 55 (L) >=60 mL/min/1.73 m?? Hemogram Result Value Ref Range WBC 16.3 (H) 4.0 - 9.5 x10(3)/mcL RBC 3.96 (L) 4.00 - 5.21 x10(6)/mcL Hemoglobin 11.7 11.7 - 15.5 gm/dL Hematocrit 35.3 (L) 35.7 - 45.8 % MCV 89.1 82.6 - 94.4 fL MCH 29.5 27.1 - 32.0 pg MCHC 33.1 31.7 - 35.0 gm/dL Platelets 205 145 - 357 x10(3)/mcL RDWSD 47.4 (H) 37.0 - 46.0 fL RDWCV 14.8 (H) 11.5 - 14.1 % MPV 9.3 7.6 - 12.9 fL nRBC % Auto 0.0 % nRBC Abs Auto 0.000 0.000 - 0.000 x10(3)/mcL Differential, Automated Result Value Ref Range Neutrophils % 70.0 % Neutr Abs (ANC) 11.42 (H) 1.70 - 6.10 x10(3)/mcL Lymphocytes % 7.6 % Lymphocytes Abs 1.2 0.9 - 3.2 x10(3)/mcL Monocytes % 8.0 % Monocyte Abs 1.3 (H) 0.3 - 0.9 x10(3)/mcL Eosinophils % 2.5 % Eosinophils Abs 0.4 0.0 - 0.4 x10(3)/mcL Basophils % 1.4 % Basophils Abs 0.2 (H) 0.0 - 0.1 x10(3)/mcL Immature Gran % 10.50 % Nova Gran Abs 1.71 (H) 0.00 - 0.04 x10(3)/mcL Scan, Peripheral Blood Result Value Ref Range Plat Estimate Increased RBC Morphology Normal Recent Labs 08/23/17 1035 08/09/17 1020 08/03/17 0915 07/05/17 0844 06/11/17 0944 06/06/17 1322 WBC 16.3* 11.4* 2.6* 13.2* 11.9* 12.0* NEUTROABS 11.42* 7.02* 0.42* 9.66* 7.86* 7.16* HGB 11.7 12.9 12.8 12.2 12.6 12.2 HCT 35.3* 38.7 38.9 36.9 37.9 36.9 PLATELET 205 486* 294 414* 421* 416* Recent Labs 08/23/17 1035 08/09/17 1020 08/03/17 0915 07/05/17 0844 03/29/17 1021 AST 14 16 13 16 12 ALT 16 21 18 21 21 ALKPHOS 151* 138* 139* 112* 79 BILITOT 0.2 <0.2* <0.2* 0.3 0.5 Assessment and Plan: Wendy returns in follow-up, labs are as above and adequate to proceed with the next cycle treatment. There are couple of issues as a noted above. Firstly we had a demand cycle 2, given her ongoing nausea I have recommended increasing her dose of Aloxi and will see if this helps. Reinforced that she should use Compazine if needed which she has found helpful. She has had some increasing heartburnand reflux which may be aggravating her nausea and will proceed with a trial of Prilosec. She has been using some Zantac which she has had laying around the house, as needed and has found this helpful. Finally regards to her arthralgias she used Tylenol first 2 cycles which helped a little bit but I recommended she proceed with trial of Aleve which she will begin prophylactically beginning the evening of day 2. documented in this encounter Plan of Treatment Upcoming Encounters Date Type Department Care Team (Late st Contact Info) Description 01/22/2024 10:30 AM EST Appointment Mammography/[place] [phone] Ladi Mendosa MD [facility] HEMATOLOGY/[place] [address] 01/30/2024 11:30 AM EST Office Visit Dermatology at [address] [place] [address] Nilda Luis MD [facility] DR L[address] AMEZCUA-DERMATOLGY [place], [place] [id number] 02/15/2024 9:30 AM EST [place] [phone] [place] [address] documented as of this encounter Visit Diagnoses Diagnosis Malignant neoplasm of upper-outer quadrant of left breast in female, estrogen receptor positive Essential hypertension Unspecified essential hypertension Obstructive sleep apnea (adult) (pediatric) Hyperparathyroidism Hyperparathyroidism, unspecified documented in this encounter Care Teams Forming Process Worker Relationship Specialty Start Date End Date Trinh Coates MD [facility] [address] [facility] [address] [place] [address] PCP - General 01/11/10 documented as of this encounter
--- OUTSIDE RECORDS SUMMARY | 2023-09-07 11:31 | XMS_ITS | Encounter Summary ---
Author Organization [facility] [place] [address] Care Team Providers Care Market Risk Manager Name Role Phone Trinh Coates MD Primary Care Provider [phone] Reason for Visit * Reason Comments Breast Cancer Chemotherapy * Treatment/Therapy Plan Authorization (Routine) - Closed Specialty Diagnoses / Procedures Referred By Diamante marin Referred To Contact Diagnoses Malignant neoplasm of upper-outer quadrant of left breast in female, estrogen receptor positive Procedures TC PACLITAXEL, 1MG, INJ TC PEGFILGRASTIM, 6MG, INJECTION Josias Barnett MD [facility] [address] HEMATOLOGY/[place] [address] [facility] [address] [place] [address] Referral ID Status Reason Start Date Expiration Date Visits Re quested Visits Authorized [id number] Closed 10/01/2017 10/01/2018 21 21 Encounter Details Date Type Department Care Team (Latest Contact Info) Description 10/04/2017 7:20 AM EDT - 10/04/2017 11:59 PM EDT Hospital Encounter Hematology [place] [address] Malignant neoplasm of upper-outer quadrant [...] 03/27/2014 024 cephalexin (KEFLEX) 500 mg Capsule Take 1 capsule by mouth 4 times daily for 7 days. 28 capsule 2 09/28/2017 10/05/2017 omeprazole (PRILOSEC) 40 mg Capsule, Delayed Release(E.C.) [...] Progress Notes * Cornelia Rosales RN - 10/04/2017 11:21 AM EDT Patient Name: Wendy Sandoval Patient Age: 52 y.o. Birthdate: 1965 Admit date: 10/04/2017 Attending Physician: Donna att. providers found TIME TREATMENT STARTED: 1005 TIME TREATMENT ENDED: 1502 Wendy Sandoval, 52 y.o. female with diagnosis of left breast cancer is here for chemotherapy infusion of taxol. ONPRO applied. PROTOCOL: no CYCLE: 1 DAY: 1 S: Pt. offers no complaints at this time. O: Chemotherapy orders independently verified for correct drug name, route and dosage per patient'sheight, weight and BSA by Jaz BURGER and onsite pharmacist REACTIONS (DESCRIPTION, TIME, INTERVENTION AND EFFECTIVENESS) none A: Pt. Tolerated treatment well. Wendy Sandoval confirms that all questions and issues have beenaddressed. P: Return to clinic as scheduled. documented in this encounter Miscellaneous Notes * Addendum Note - Cornelia Rosales RN - 10/04/2017 4:15 PM EDTEncounter addended by: Cornelia Rosales RN on: 10/04/2017 4:15 PM
Actions taken: Sign clinical note documented in this encounter Plan of Treatment Upcoming Encounters Date Type Department Care Team (Late st Contact Info) Description 01/22/2024 10:30 AM EST Appointment Mammography/[place] [address] Ladi Mendosa MD [facility] HEMATOLOGY/[place] [address] 01/30/2024 11:30 AM EST Office Visit Dermatology at [address] [place] [address] Nilda Luis MD [facility] [address] [place] [address] 02/15/2024 9:30 AM EST [place]ment [place] [address] [place] [address] documented as of this encounter Visit Diagnoses Diagnosis Malignant neoplasm of upper-outer quadrant of left breast in female, estrogen receptor positive documented in this encounter Administered Medications Inactive Administered Medications - up to 3 most recent administrations Medication Order MAR Action Action Date Dose Rate Site dexamethasone (DECADRON) injection 10 mg 10 mg, Intravenous, ONCE, 1 dose, On Sosa 10/04/17 at 1000, Administer 30 minutes prior to PACLitaxel Given 10/04/2017 10:46 AM EDT 10 mg diphenhydrAMINE (BENADRYL) injection 25 mg 25 mg, Intravenous, ONCE, 1 dose, On Sosa 10/04/17 at 1000, Administer 30 minutes prior to PACLitaxel, Routine Given 10/04/2017 10:58 AM EDT 25 mg famotidine (PEPCID) injection 20 mg 20 mg, Intravenous, ONCE, 1 dose, On Sosa 10/04/17 at 1000, Administer 30 minutes prior to PACLitaxel Given 10/04/2017 10:42 AM EDT 20 mg heparin, porcine 100 unit/mL flush 500 Units 500 Units, Intravenous, ONCE PRN, Starting on Sosa 10/04/17 at 0944, Until Sun10/05/17 at 0438, Line Care, Refer to Intravenous (IV) Procedure: Accessing Implanted Vascular Access Devices (654) procedure and/or Intravenous (IV) Job Aid: Adult Flushing & Catheter Care (8507) job aid for additional information regarding guidelines and administration., Routine Given 10/04/2017 3:02 PM EDT 500 Units LORazepam (ATIVAN) injection 0.5 mg 0.5 mg, Intravenous, EVERY 4 HOURS PRN, Starting on Sosa 10/04/17 at 1154, Until Sun10/04/17 at 2353, Anxiety, Nausea, Vomiting, If multiple antiemetics are ordered, use in the following sequence: Ondansetron>Prochlorpera zine or Promethazine>Lorazepam>M etoclopramide, Routine Given 10/04/2017 12:09 PM EDT 0.5 mg ondansetron (ZOFRAN) injection 8 mg 8 mg, Intravenous, ONCE, 1 dose, On Sosa 10/04/17 at 1000 Given 10/04/2017 10:43 AM EDT 8 mg PACLitaxel (TAXOL) 320 mg in dextrose 5% Non-PVC 553.3333 mL chemo infusion 320 mg (rounded from 320.25 mg = 175 mg/m2/dose ? 1.83 m2 Treatment Plan BSA from Recorded weight), Intravenous, ONCE, 1 dose, On Sosa 10/04/17 at 1100, Administer over 3 Hours, Warning Vesicant/Irritant Medication New Bag 10/04/2017 11:39 AM EDT 320 mg 184.4 mL/hr pegfilgrastim (NEULASTA ONPRO) injection kit 6 mg, Subcutaneous, ONCE, 1 dose, On Sosa 10/04/17 at 1000, Allow the prefilled syringe co-packaged with the on-body injector to reach room temperature at least 30 minutes prior to administration., Routine, This agent is restricted to outpatient use. Is this drug being given as an outpatient? Yes Given 10/04/2017 2:10 PM EDT 6 mg Right Arm documented in this encounter Care Teams Market Risk Manager Relationship Specialty Start Date End Date Trinh Coates MD [address] [place] [address] PCP - General 01/11/10 documented as of this encounter
--- OUTSIDE RECORDS SUMMARY | 2023-09-07 11:31 | XMS_ITS | Encounter Summary ---
Author Organization [facility] [place] [address] Care Team Providers Care Bulbs Farmworker Name Role Phone Trinh Coates MD Primary Care Provider [phone] Reason for Visit * Reason Onset Date Comments Diarrhea 09/10/2017 Encounter Details Date Type Department Care Team (Late st Contact Info) Description 09/10/2017 Telephone Hematology [place] [address] Elisa Abbott RN Diarrhea Social History Tobacco Use Types Packs/Day Years [...] encounter Miscellaneous Notes * Telephone Encounter - Elisa Abbott RN - 09/10/2017 11:33 AM EDT Message received from school secretary: Update on patients diarrhea still has it, very dark and gita,doesnt smell as bad as it did. T/C to patient: Patient stated she took loperamide this afternoon and so far has not had another BM. She stated she will monitor over night and call tomorrow if she is still having diarrhea. She denies fever, nausea, or vomiting. Patient states she is drinking about 32 ounces per day. RN advised her to drink closer to 64 ounces per day if possible. Patient stated she will try. Patient also mentioned she went to eye doctor today at [facility]. She stated she does have an eyeinfection and her doctor has prescribed her medication for it. Plan: Patient will contact our office if she has diarrhea not controlled with loperamide. Patient verbalized understanding and is in agreement with this plan. She knows to call 11/09 with any questions or concerns. documented in this encounter Plan of Treatment Upcoming Encounters Date Type Department Care Team (Late st Contact Info) Description 01/22/2024 10:30 AM EST Appointment Mammography/DXA at [place] [phone] Ladi Mendosa MD [facility] HEMATOLOGY/[place] [address] 01/30/2024 11:30 AM EST Office Visit Dermatology at [address] [phone] Nilda Luis MD [facility] [address] [place] [address] 02/15/2024 9:30 AM EST Appointment [place] [phone] [place] [address] documented as of this encounter Visit Diagnoses Not on filedocumented in this encounter Care Teams Bulbs Farmworker Relationship Specialty Start Date End Date Trinh Coates MD [facility] [address] [place] [address] PCP - General 01/11/10 documented as of this encounter
--- OUTSIDE RECORDS SUMMARY | 2023-09-07 11:31 | XMS_ITS | Encounter Summary ---
Author Organization Formerly [facility] [place] [address] Care Team Providers Care Poultry Scalder Name Role Phone Trinh Coates MD Primary Care Provider [phone] Reason for Referral * Diagnostic Test (Routine) - Canceled Specialty Diagnoses / Procedures Referred By Shadyac t Referred To Contact Radiology Diagnoses Surgery follow-up Procedures IR Breast Drain Placement Jolene Azevedo [employer] M[employer] OPERATOR [facility] [place] [address] [place] [address] Referral ID Status Reason Start Date Expiration Date Visits Requested Visits Authorized [id number] Canceled Specialty Service Requested 07/03/2017 07/03/2018 1 1 Reason for Visit * Diagnostic Test (Routine) - Canceled Specialty Diagnoses / Procedures Referred By Contrenan t Referred To Contact Radiology Diagnoses Surgery follow-up Procedures IR Breast Drain Placement Jolene Azevedo APRN [facility] [place] [address] [place] [address] Referral ID Status Reason Start Date Expiration Date Visits Requested Visits Authorized [id number] Canceled Specialty Service Requested 07/03/2017 07/03/2018 1 1 Encounter Details Date Type Department Care Team (Latest Contact Info) Description 09/06/2017 11:29 AM EDT - 09/06/2017 11:59 PM EDT Hospital Encounter [place] [address] [address] [facility] [place] [address] Surgery follow-up Discharge Disposition: Home Social History Tobacco Use [...] Sign Reading Time Taken Comments Blood Pressure 172/112 09/06/2017 2:16 PM EDT Pulse 79 09/06/2017 11:58 AM EDT Temperature 36.4 ??C (97.6 ??F) 09/06/2017 1:55 PM ED T Respiratory Rate 16 09/06/2017 2:16 PM EDT Oxygen Saturation 97% 09/06/2017 2:16 PM EDT Inhaled Oxygen Concentration - - Weight - - Height - - Body Mass Index - - documented in this encounter Discharge Instructions * Discharge Instructions* Jazmyn Burrell RN - 09/06/2017 2:04 PM EDT Images from the original note [...] dressing if applicable. * See the following information on instructions on how to do this. You will go home with a dressing over the insertion site. Usually, Visiting Nurses are set up to show you how to change the dressing and care for the drain. They may teach a family member if they arewilling. The dressing needs to only be change once a week provided there is no leakage around the tube. What problems may I have with my [...] syringe with sterile saline to the stopcock. 5. Re-attach the tubing with the bulb [...] procedure to reduce the risk of infection. When to call the Interventional Radiology Department: Please call with any questions or concerns. If it is during regular office hours, please call [phone]. If it is after regular office hours, or on weekends or holidays, please call [phone] and ask to speak to the Residential Living Assistant individual pension adviser for Interventional Radiology. XX You have received medication during your procedure to help lessen anxiety and keep you comfortable. These medications [...] foul drainage occurs, please contact your M. Margarita. Revised 07/17/17 Drainage Record NAME: Date of Surgery: Date: [...] DR tablet 1 CAP daily 03/27/2014 024 amoxicillin-clavulanat e (AUGMENTIN) 875-125 mg TabletIndications:S/P breast reconstruction, bilateral,Seroma of breast Take 1 tablet by mouth 2 times daily. 20 tablet 09/06/2017 09/18/2017 omeprazole (PRILOSEC) 40 mg Capsule, Delayed Release(E.C.) [...] of this encounter Progress Notes * Ailyn Bryson RN - 09/06/2017 11:59 PM EDT Interventional and Vascular Radiology Post-Procedure Call Name: Wendy Sandoval Age: 52 y.o. Sex; Female Date of : 1965 (home) Telephone Information: PCP Trinh Coates MD [phone] Date/Time of call: September 07, 2017/9:42 AM Procedure: L breast drain Procedural Provider: juaquin Contact with patient or if not, with whom? yes Are you having pain related to your procedure now? no Are you having any swelling or bleeding from the site? no Are there any improvement in your symptoms? Yes draining well Are you having any other problems related to your procedure? There was an issue immediately after but was addressed and bulb changed to bag. Comments: Did you understand the discharge instructions given and do you have any questions? Comments: All set Do you have any comments about your Nurse or Provider or the care you received? Great care as usual Nurse Comments: * Jazmyn Burrell RN - 09/06/2017 4:00 PM EDT Pt discharged from IR recovery around 1507. YG bulb suction not holding, device does not appear to be cracked and is sealed appropriately. This RN emptied drain for pt during drain teaching, suction appeared to be holding, pt left IR to another attend another appointment and instructed to return ifdrain still losing suction. 1600: Pt returned to IR recovery as drain was still not holding suction. MD Crowley notified, nursing instructed to changed drain from bulb suction to gravity bag. Pt instructed the care of the bag and all connections intact when she left. Supplies provided. Nursing will call to check on patient in the morning per protocol and instructed to call with any further questions or concerns. * Andre Crowley MD - 09/06/2017 12:10 PM EDT Images from the original note were not included. IR Addendum: The patient's history and physical exam have been reviewed and completed. There has been no interval change from that of the pre-operative history and physical exam done within the last 30 days. Risks (including hemorrhage, infection, damage to air traffic controller center), and benefits discussed and patient consented to the procedure. Physical Exam Heart: RRR Lungs: clear ASA Classification: ASA 3 - Patient with moderate systemic disease with functional limitations Mallampati Classification: NA, not a candidate for moderate sedation. Plan: U/S guided left breast drain. Scooby Muñoz, AARTI Nurse Practitioner Signed Interventional Radiology H&P Date of Service: 09/06/2017 11:32 AM Expand All Collapse All []Hide copied text INTERVENTIONAL RADIOLOGY ?? FOCUSED H&P and PRE-PROCEDURE NOTE: ?? PCP: Trinh Coates MD Referring Provider: Jolene Azevedo Planned Procedure: USG left breast drain placement Procedure Indication: Recurrent left breast collection ?? Presenting Diagnosis/ Complaint: Wendy Sandoval is a 52 y.o. female with a PMHx significant for HTN, and left breast cancer s/p bilateral mastectomy with tissue expanders (04/26/17). Multiple drainsand aspiration to left breast in IR for seromas, and infections last being an aspiration on 06/26/17 when 35ml was aspirated adjacent to the left breast implant. IR has been consulted for left breast drain placement 2/2 new fluid collection. ?? Past Medical/Surgical History: Patient Active Problem List Diagnosis Code ??? Hypertension I10 ??? Depression F32.9 ??? Obstructive sleep apnea (adult) (pediatric) G47.33 ??? OA (osteoarthritis) M19.90 ??? Overweight(278.02) E66.3 ??? Hyperparathyroidism E21.3 ??? Malignant neoplasm of upper-outer quadrant of left breast in female, estrogen receptor rcbknhguW92.412, Z17.0 ??? S/P breast reconstruction, bilateral Z98.890 ??? Surgery follow-up Z09 ??? Abdominal wound dehiscence T81.30XA ??? Hypokalemia E87.6 ?? Past Medical History Past Medical History: Diagnosis Date ??? Fibrocystic breast determined by biopsy ? Hyperlipidemia ? Hypertension ? Impaired fasting glucose ? Malignant neoplasm of upper-outer quadrant of left breast in female, estrogen receptor positive03/31/2017 ??? Obstructive sleep apnea on CPAP ? Proteinuria ? Past Surgical History Past Surgical History: Procedure Laterality Date ??? BREAST BIOPSY Right 11/01 ??? SECTION ? x 2 ??? HAND SURGERY Right ? PRG EMG, LARYNX N/A 11/02/2015 ?? FACIAL NERVE MONITORING, SETUP LARYNGEAL performed by Valentina Lucas MD at [facility] OR ??? PRO BREAST RECONSTRUC W FREE FLAP Bilateral 04/26/2017 ?? @BREAST RECONSTRUCTION W/ FREE FLAP, SUSAN (WRVU 42.58) performed by Andre Gimenez MD at [facility] OR ??? PRO BREAST RECONSTRUC W TISS EXPANDR Bilateral 04/26/2017 ?? BREAST RECONSTRUCTION, IMMEDIATE OR DELAYED, W/ TISSUE INDUSTRY CONSULTANT, INCLUDING SUBSEQUENT EXPANSION (WRVU 18.5) performed by Andre Gimenez MD at [facility] OR ? ? PRO DEBRIDEMENT SUBCUTANEOUS TISSUE 20 SQCM/< ?? 06/22/2017 ?? DEBRIDEMENT SKIN AND SUBCU, BREAST (WRVU 1.01) performed by Andre Gimenez MD at [facility] OR ??? PRO EXPLORE PARATHYROID GLANDS N/A 11/02/2015 ?? PARATHYROIDECTOMY OR EXPLORATION OF PARATHYROID(S) performed by Valentina Lucas MD at [facility] OR ? ? PRO FULL THICK GRFT TRUNK <20 SQCM Bilateral 04/26/2017 ?? FTSG, FREE, DIR CLOSE DONOR SITE, TRUNK, 20 SQ CM OR LESS (WRVU 9.15) performed by Susana Gimenez MD at [facility] OR ??? PRO MASTECTOMY, SIMPLE, COMPLETE Bilateral 04/26/2017 ?? MASTECTOMY, SIMPLE, COMPLETE-SUSAN (WRVU 15.85) performed by Jolie Menendez MD at [facility] OR ??? PRO PARTIAL REMOVAL OF RIB Bilateral 04/26/2017 ?? EXCISION OF RIB, PARTIAL (WRVU 7.26) performed by Andre Gimenez MD at [facility] OR ??? PRO REMOVE ARMPITS LYMPH NODES COMPLT Left 04/26/2017 ?? LYMPHADENECTOMY, AXILLARY, COMPLETE (WRVU 13.87) performed by Jolie Menendez MD at [facility] OR ??? PRO REVISE BREAST RECONSTRUCTION Left 06/22/2017 ?? REVISION OF RECONSTRUCTED BREAST (WRVU 10.41) performed by Andre Gimenez MD at [facility] OR ??? PRO THYMECTOMY, TRANSCERVICAL N/A 11/02/2015 ?? THYMECTOMY, TRANSCERVICAL APPROACH performed by Valentina Lucas MD at [facility] OR ??? SHOULDER SURGERY Left ? UMBILICAL HERNIA REPAIR ? Medications: Current Outpatient Prescriptions on File Prior to Encounter Medication Sig Dispense Refill ??? amoxicillin-clavulanate (AUGMENTIN) 875-125 mg Tablet Take 1 tablet by mouth 2 times daily. 20 tablet 0 ??? omeprazole (PRILOSEC) 40 mg Capsule, Delayed Release(E.C.) Take 1 capsule by mouth daily. 90 capsule 11 ??? cholecalciferol, Vitamin D3, (VITAMIN D-3) 5,000 unit Tablet Take by mouth. ? LORazepam (ATIVAN) 0.5 mg Tablet Take 1 [...] Reported on 07/20/2017) 20 tablet 0 ??? Lactobacillus (BACID) 0.5 mg (100 million cell) Tablet Take 1 tablet by mouth daily. (Patient not taking: Reported on 09/06/2017) 30 tablet 0 ??? valsartan-hydrochlorothiazide (DIOVAN-HCT) 160-12.5 mg Tablet Take 1 tablet by mouth daily. ? atorvastatin (LIPITOR) 20 mg Tablet Take 1 tablet by mouth daily. ?? 0 ??? triamcinolone (ARISTOCORT) 0.5 % Cream Apply topically 3 times daily. ? acetaminophen (TYLENOL) 325 mg Tablet Take 2 tablets by mouth every 4 hours as needed for Pain.? DILTiazem (CARDIZEM CD) 240 mg Capsule, Sust. Release 24 hr Take 1 capsule by mouth daily. ? ferrous gluconate 324 mg (37.5 mg iron) Tablet Take 324 mg by mouth daily. ? clobetasol (TEMOVATE) 0.05 % Cream Apply to affected areas on knees, elbows and hands twice daily for two week cycles as needed. (Patient not taking: Reported on 09/06/2017) 60 g 3 ??? fluoxetine (PROZAC) 40 mg capsule daily. ? Current Facility-Administered Medications on File Prior to Encounter Medication Dose Route Frequency Provider Last Rate Last Dose ??? sodium chloride 0.9 % flush 5-20 mL 5-20 mL Intravenous Q1 Min PRN Gustavo Mota MD ? 20mL at 09/06/17 1004 ??? heparin, porcine 100 unit/mL flush 500 Units 500 Units Intravenous Once PRN Gustavo Mota MD ? 500 Units at 09/06/17 1004 ?? Allergies: Zoloft [sertraline] ?? Social History and Habits: Social History Social History ?? Social History ??? Marital status: ? Spouse name: N/A ??? Number of children: N/A ??? Years of education: N/A ?? Occupational History ??? Not on file. ?? Social History Main Topics ??? Smoking status: Former Smoker ??? Smokeless tobacco: Never Used ??? Alcohol use Yes ? Comment: socially once a month ??? Drug use: No ??? Sexual activity: Not on file ?? Other Topics Concern ??? Not on file ?? Social History Narrative ?? Significant Family History: Family History Family History Problem Relation Age of Onset ??? Breast Cancer Other 46 ? Dx'd with Stg IV BR CA, in remission (age 46 in 2018) ??? Breast Cancer Mother 60 ? In her 60's ??? Breast Cancer Maternal Aunt 39 ? Contralateral BR CA at age 51 ??? Prostate Cancer Father 60 ? In his 60's ??? Colorectal Cancer Maternal Grandfather 80 ? In his 80's ??? Colorectal Cancer Maternal Uncle 60 ? In his 60's ??? Ovarian Cancer Neg Hx ? Pertinent ROS: as per HPI ?? Labs: Lab Results Component Value Date ?? WBC 19.1 (H) 09/06/2017 ?? HCT 33.0 (L) 09/06/2017 ?? PLATELET 251 09/06/2017 ?? BUN 17 09/06/2017 ?? CREATININE 1.03 09/06/2017 ?? ALKPHOS 152 (H) 09/06/2017 ?? AST 12 09/06/2017 ?? ALBUMIN 3.9 09/06/2017 ?? BILITOT <0.2 (L) 09/06/2017 ?? ALT 16 09/06/2017 ?? PROT 6.9 09/06/2017 ? Imaging: Left breast US 09/06/17 ?? Physical Exam: Pending (to be performed in angio the day of procedure) ?? ASA: Pending (to be assessed in angio the day of procedure) Mallampati Class: Pending (to be assessed in angio the day of procedure) ?? Assessment: 52 y.o. female who presents to IR for left breast drain placement with fluid cultures. ?? Plan: Plan Planned procedure: Left breast drain placement Labs to be performed day of procedure: Other (see comments) (fluid cultures) Sedation: fentanyl only Additional medications for procedure: Lidocaine Planned access site: Left breast pending US evaluation Position: Supine Consent: Pending ?? 09/06/2017 ? * Joyce Qureshi RN - 09/06/2017 11:24 AM EDT ANGIO NURSING DATABASE Name: WENDY SANDOVAL Date of : 1965 AGE 52 y.o. Address: [address] [place] [id number] (home) [phone] (work) Mobile: Telephone Information: Referring Provider: Jolene Azevedo REASON FOR VISIT: Breast drain Reason for exam and clinical history: Possible left breast seroma s/p left breast reconstruction Exam/Procedure requested: Drain if seroma found COPY/PASTE Procedure Plan from provider's note, bottom of MD workup Allergies Allergen Reactions ??? Zoloft [Sertraline] PSORIASIS FLARE Pertinent PMH: Patient Active Problem List Diagnosis Code ??? Hypertension I10 ??? Depression F32.9 ??? Obstructive sleep apnea (adult) (pediatric) G47.33 ??? OA (osteoarthritis) M19.90 ??? Overweight(278.02) E66.3 ??? Hyperparathyroidism E21.3 ??? Malignant neoplasm of upper-outer quadrant of left breast in female, estrogen receptor cfnmfoqdQ75.412, Z17.0 ??? S/P breast reconstruction, bilateral Z98.890 ??? Surgery follow-up Z09 ??? Abdominal wound dehiscence T81.30XA ??? Hypokalemia E87.6 Pertinent PSH: Past Surgical History: Procedure Laterality Date ??? BREAST BIOPSY Right 11/01 ??? SECTION x 2 ??? HAND SURGERY Right ??? PRG EMG, LARYNX N/A 11/02/2015 FACIAL NERVE MONITORING, SETUP LARYNGEAL performed by Valentina Lucas MD at [facility] OR ??? PRO BREAST RECONSTRUC W FREE FLAP Bilateral 04/26/2017 @BREAST RECONSTRUCTION W/ FREE FLAP, SUSAN (WRVU 42.58) performed by Andre Gimenez MD at [facility] ??? PRO BREAST RECONSTRUC W TISS EXPANDR Bilateral 04/26/2017 BREAST RECONSTRUCTION, IMMEDIATE OR DELAYED, W/ TISSUE INDUSTRY CONSULTANT, INCLUDING SUBSEQUENT EXPANSION (WRVU 18.5) performed by Andre Gimenez MD at [facility] OR ? ? PRO DEBRIDEMENT SUBCUTANEOUS TISSUE 20 SQCM/< 06/22/2017 DEBRIDEMENT SKIN AND SUBCU, BREAST (WRVU 1.01) performed by Andre Gimenez MD at [facility] OR ??? PRO EXPLORE PARATHYROID GLANDS N/A 11/02/2015 PARATHYROIDECTOMY OR EXPLORATION OF PARATHYROID(S) performed by Valentina Lucas MD at [facility] OR ? ? PRO FULL THICK GRFT TRUNK <20 SQCM Bilateral 04/26/2017 FTSG, FREE, DIR CLOSE DONOR SITE, TRUNK, 20 SQ CM OR LESS (WRVU 9.15) performed by Andre Gimenez MD at [facility] OR ??? PRO MASTECTOMY, SIMPLE, COMPLETE Bilateral 04/26/2017 MASTECTOMY, SIMPLE, COMPLETE-SUSAN (WRVU 15.85) performed by Jolie Menendez MD at [facility] OR ??? PRO PARTIAL REMOVAL OF RIB Bilateral 04/26/2017 EXCISION OF RIB, PARTIAL (WRVU 7.26) performed by Anrde Gimenez MD at [facility] OR ??? PRO REMOVE ARMPITS LYMPH NODES COMPLT Left 04/26/2017 LYMPHADENECTOMY, AXILLARY, COMPLETE (WRVU 13.87) performed by Jolie Menendez MD at [facility] OR ??? PRO REVISE BREAST RECONSTRUCTION Left 06/22/2017 REVISION OF RECONSTRUCTED BREAST (WRVU 10.41) performed by Andre Gimenez MD at [facility] OR ??? PRO THYMECTOMY, TRANSCERVICAL N/A 11/02/2015 THYMECTOMY, TRANSCERVICAL APPROACH performed by Valentina Lucas MD at [facility] OR ??? SHOULDER SURGERY Left ??? UMBILICAL HERNIA REPAIR ?? Date/Procedure ?Med's given/comments 04/30/17 Rt breast drain [...] R drain removed. Fentanyl 50 mcg IV? [id number] Left breast aspiration/ 30 ml Fentanyl 100 mg IV 07/03/[address] power-injectable port placement Clindamycin 900 mg IV, versed 3 mg IV, fentanyl 150 mcg IV 09/06/17: Left breast drain placement, 320 cc output, sent for culture Fentanyl 150 mcg, tolerated well ? Laboratory Results: Lab Results Component Value Date CREATININE 1.03 09/06/2017 Lab Results Component Value Date K 3.1 (L) 09/06/2017 Lab Results Component Value Date PLATELET 251 09/06/2017 Medications: Prior to Admission medications Medication Sig Start Date End Date Taking? Authorizing Provider amoxicillin-clavulanate (AUGMENTIN) 875-125 mg Tablet Take 1 tablet by mouth 2 times daily. 09/06/17Andre Gimenez MD omeprazole (PRILOSEC) 40 mg Capsule, Delayed Release(E.C.) Take 1 capsule by mouth daily. 08/23/17 08/23/18 Gustavo Mota MD cholecalciferol, Vitamin D3, (VITAMIN D-3) 5,000 unit Tablet Take by mouth. PROVIDER, HISTORICAL LORazepam (ATIVAN) 0.5 mg Tablet Take 1 tablet by mouth every 6 hours as needed for Anxiety. Patient not taking: Reported on 07/20/2017 06/01/17 Sally Ren APRN prochlorperazine (COMPAZINE) 10 mg Tablet Take 1 tablet by mouth every 6 hours as needed for Nausea. Patient not taking: Reported on 07/20/2017 06/01/17 Sally Ren APRN ondansetron (ZOFRAN) 4 mg Tablet Take 1 tablet by mouth every 8 hours as needed for Nausea. Patient not taking: Reported on 07/20/2017 05/25/17 Jolene Azevedo APRN Lactobacillus (BACID) 0.5 mg (100 million cell) Tablet Take 1 tablet by mouth daily. Patient not taking: Reported on 09/06/2017 05/01/17 Alma Castillo PA valsartan-hydrochlorothiazide (DIOVAN-HCT) 160-12.5 mg Tablet Take 1 tablet by mouth daily. 02/20/17 PROVIDER, HISTORICAL atorvastatin (LIPITOR) 20 mg Tablet [...] as needed. Patient not taking: Reported on 09/06/2017 04/16/14 Ernestine Gaines MD fluoxetine (PROZAC) 40 mg capsule daily. 10/31/12 PROVIDER, HISTORICAL documented in this encounter H&P Notes * Scooby Muñoz APRN - 09/06/2017 11:32 AM EDT Images from the original note were not included. INTERVENTIONAL RADIOLOGY FOCUSED H&P and PRE-PROCEDURE NOTE: PCP: Trinh Coates MD Referring Provider: Jolene Azevedo Planned Procedure: USG left breast drain placement Procedure Indication: Recurrent left breast collection Presenting Diagnosis/ Complaint: Wendy Sandoval is a 52 y.o. female with a PMHx significant for HTN, and left breast cancer s/p bilateral mastectomy with tissue expanders (04/26/17). Multiple drainsand aspiration to left breast in IR for seromas, and infections last being an aspiration on 06/26/17 when 35ml was aspirated adjacent to the left breast implant. IR has been consulted for left breast drain placement 2/2 new fluid collection. Past Medical/Surgical History: Patient Active Problem List Diagnosis Code ??? Hypertension I10 ??? Depression F32.9 ??? Obstructive sleep apnea (adult) (pediatric) G47.33 ??? OA (osteoarthritis) M19.90 ??? Overweight(278.02) E66.3 ??? Hyperparathyroidism E21.3 ??? Malignant neoplasm of upper-outer quadrant of left breast in female, estrogen receptor frtuoalrK49.412, Z17.0 ??? S/P breast reconstruction, bilateral Z98.890 ??? Surgery follow-up Z09 ??? Abdominal wound dehiscence T81.30XA ??? Hypokalemia E87.6 Past Medical History: Diagnosis Date ??? Fibrocystic [...] LARYNGEAL performed by Valentina Lucas MD at [facility] OR ??? PRO BREAST RECONSTRUC W FREE FLAP Bilateral 04/26/2017 @BREAST RECONSTRUCTION W/ FREE FLAP, SUSAN (WRVU 42.58) performed by Andre Gimenez MD at [facility] ??? PRO BREAST RECONSTRUC W TISS EXPANDR Bilateral 04/26/2017 BREAST RECONSTRUCTION, IMMEDIATE OR DELAYED, W/ TISSUE INDUSTRY CONSULTANT, INCLUDING SUBSEQUENT EXPANSION (WRVU 18.5) performed by Andre Gimenez MD at [facility] OR ? ? PRO DEBRIDEMENT SUBCUTANEOUS TISSUE 20 SQCM/< 06/22/2017 DEBRIDEMENT SKIN AND SUBCU, BREAST (WRVU 1.01) performed by Andre Gimenez MD at [facility] OR ??? PRO EXPLORE PARATHYROID GLANDS N/A 11/02/2015 PARATHYROIDECTOMY OR EXPLORATION OF PARATHYROID(S) performed by Valentina Lucas MD at [facility] OR ? ? PRO FULL THICK GRFT TRUNK <20 SQCM Bilateral 04/26/2017 FTSG, FREE, DIR CLOSE DONOR SITE, TRUNK, 20 SQ CM OR LESS (WRVU 9.15) performed by Andre Gimenez MD at [facility] OR ??? PRO MASTECTOMY, SIMPLE, COMPLETE Bilateral 04/26/2017 MASTECTOMY, SIMPLE, COMPLETE-SUSAN (WRVU 15.85) performed by Jolie Menendez MD at [facility] OR ??? PRO PARTIAL REMOVAL OF RIB Bilateral 04/26/2017 EXCISION OF RIB, PARTIAL (WRVU 7.26) performed by Andre Gimenez MD at [facility] OR ??? PRO REMOVE ARMPITS LYMPH NODES COMPLT Left 04/26/2017 LYMPHADENECTOMY, AXILLARY, COMPLETE (WRVU 13.87) performed by Jolie Menendez MD at [facility] OR ??? PRO REVISE BREAST RECONSTRUCTION Left 06/22/2017 REVISION OF RECONSTRUCTED BREAST (WRVU 10.41) performed by Andre Gimenez MD at [facility] OR ??? PRO THYMECTOMY, TRANSCERVICAL N/A 11/02/2015 THYMECTOMY, TRANSCERVICAL APPROACH performed by Valentina Lucas MD at [facility] OR ??? SHOULDER SURGERY Left ??? UMBILICAL HERNIA REPAIR Medications: Current Outpatient Prescriptions on File Prior to Encounter Medication Sig Dispense Refill ??? amoxicillin-clavulanate (AUGMENTIN) 875-125 mg Tablet Take 1 tablet by mouth 2 times daily. 20 tablet 0 ??? omeprazole (PRILOSEC) 40 mg Capsule, [...] Reported on 07/20/2017) 20 tablet 0 ??? Lactobacillus (BACID) 0.5 mg (100 million cell) Tablet Take 1 tablet by mouth daily. (Patient not taking: Reported on 09/06/2017) 30 tablet 0 ??? valsartan-hydrochlorothiazide (DIOVAN-HCT) 160-12.5 [...] as needed. (Patient not taking: Reported on 09/06/2017) 60 g 3 ??? fluoxetine (PROZAC) 40 mg capsule daily. Current Facility-Administered Medications on File Prior to Encounter Medication Dose Route Frequency Provider Last Rate Last Dose ??? sodium chloride 0.9 % flush 5-20 mL 5-20 mL Intravenous Q1 Min PRN Gustavo Mota MD 20 mL at 09/06/17 1004 ??? heparin, porcine 100 unit/mL flush 500 Units 500 Units Intravenous Once PRN Gustavo Mota MD 500 Units at 09/06/17 1004 Allergies: Zoloft [sertraline] Social History and Habits: [...] Relation Age of Onset ??? Breast Cancer Other 46 Dx'd with Stg IV BR CA, in remission (age 46 in 2018) ??? Breast Cancer Mother 60 In her 60's ??? Breast Cancer Maternal Aunt 39 Contralateral BR CA at age 51 ??? Prostate Cancer Father 60 In his 60's ??? Colorectal Cancer Maternal Grandfather 80 In his 80's ??? Colorectal Cancer Maternal Uncle 60 In his 60's ??? Ovarian Cancer Neg Hx Pertinent ROS: as per HPI Labs: Lab Results Component Value Date WBC 19.1 (H) 09/06/2017 HCT 33.0 (L) 09/06/2017 PLATELET 251 09/06/2017 BUN 17 09/06/2017 CREATININE 1.03 09/06/2017 ALKPHOS 152 (H) 09/06/2017 AST 12 09/06/2017 ALBUMIN 3.9 09/06/2017 BILITOT <0.2 (L) 09/06/2017 ALT 16 09/06/2017 PROT 6.9 09/06/2017 Imaging: Left breast US 09/06/17 Physical Exam: Pending (to be performed in angio the day of procedure) ASA: Pending (to be assessed in angio the day of procedure) Mallampati Class: Pending (to be assessed in angio the day of procedure) Assessment: 52 y.o. female who presents to IR for left breast drain placement with fluid cultures. Plan: Plan Planned procedure: Left breast drain placement Labs to be performed day of procedure: Other (see comments) (fluid cultures) Sedation: fentanyl only Additional medications for procedure: Lidocaine Planned access site: Left breast pending US evaluation Position: Supine Consent: Pending 09/06/2017 documented in this encounter Procedure Notes * Andre Crowley MD - 09/06/2017 4:01 PM EDT IR PROCEDURE NOTE Procedure: Left breast drain placement. Indication for Procedure: Per Norberto Toni BROUSSARD, Wendy Sandoval is a 52 y.o. female with a PMHx significant for HTN, and left breast cancer s/p bilateral mastectomy with tissue expanders (04/26/17). Multiple drains and aspiration to left breast in IR for seromas, and infections last being an aspiration on 06/26/17 when 35ml was aspirated adjacentto the left breast implant. IR has been consulted for left breast drain placement 2/2 new fluid collection. Procedure events and findings: After obtaining informed consent, pt was positioned supine on procedure table. Initial U/S showed fluid surrounding the Left breast air traffic controller center as seen on the breast US from earlier today. A site for drain placement was chosen and identified on the skin. The skin was prepped, and local anesthesia provided with 1% lidocaine. Maximum sterile barrier technique was used throughout. Due to the painful nature of the procedure, patient received split doses of intravenous fentanyl from the IR nurse while pulse, pressure, and oxygen saturation were continuously monitored. An 18 ga needle was directed into the collection with U/S guidance. A guide wire was placed and looped in the breast around the air traffic controller center under fluoroscopy, position within the collection confirmed with U/S. The access tract was dilated under fluoroscopy and a 8 Fr locking pigtail drainage catheter was placed. Post placement U/S showed the catheter within the fluid collection. Roughly 320 cc of mildly cloudy pale yellow fluid was aspirated. Catheter anchored with suture and connected to bulb drainage. Sample sent for gram stain and cultures. Medications: Fentanyl 150 mcg IV, 1% Lidocaine <10ccs subcutaneous. Fluoro Time: 0.3 mins Est Blood Loss: <5cc. Complications: No immediate. Impression: 1. Left breast drain placement, 8 Kenyan. 2. 320 cc of mildly cloudy pale yellow fluid aspirated, sample sent for labs. Resident/Fellow: Dr. Mcgovern. Attending: I, Dr. Crowley performed this procedure. documented in this encounter Nursing Notes * Joyce Qureshi RN - 09/06/2017 1:[address] Crowley in procedure room to ultrasound left breast. After discussion with patient, he determinedit would be best to perform procedure with flouro. Patient transferred to exam table for procedure.Safety strap in place. * Joyce Qureshi RN - 09/06/2017 12:55 PM EDT To procedure room IR 2 via stretcher. Remaining on stretcher (position) All monitors, safety strap in place. Med's per protocol. documented in this encounter Miscellaneous Notes * Brief Op Note - Andre Crowley MD - 09/06/2017 1:55 PM EDT INTERVENTIONAL RADIOLOGY BRIEF PROCEDURE NOTE Patient Name: Wendy Sandoval : 1965 Case Date: 09/06/2017 Operators: Attending: Juaquin Resident/Fellow/Student: Shaniqua Post-operative diagnosis/Indication: Recurrent left breast seroma. 52 y.o.??female??with h/o left breast cancer s/p bilateral mastectomy with tissue expanders (04/26/17). Multiple drains and aspirationto left breast in IR for seromas, and infections, last being an aspiration on 06/26/17 when 35ml was a spirated adjacent to the left breast implant. Name of Procedure Performed: US guided Left breast drain placement Brief description of the procedure: To follow Findings of the procedure: ?? Recurrent Left Breast Seroma ?? 320 cc of serous fluid aspirated EBL: <10 mL Specimens: Aspirated fluid for culture and sensitivities Complications: No immediate Meds: Fentanyl 150 mcg IV, 1% Lidocaine <10ccs subcutaneous. documented in this encounter Plan of Treatment Upcoming Encounters Date Type Department Care Team (Late st Contact Info) Description 01/22/2024 10:30 AM EST Appointment Mammography/[place] [address] [facility] HEMATOLOGY/[place] [address] 01/30/2024 11:30 AM EST Office Visit Dermatology at [place] [address] [place] [phone] [facility] [place] [address] 02/15/2024 9:30 AM EST Appointment [place] [address] [place] [address] documented as of this encounter Procedures Procedure Name Priority Date/Time Associated Diagnosis Comments IR BREAST DRAIN PLACEMENT Routine 09/06/2017 1:55 PM EDT Surgery follow-up ANAEROBIC CULTURE Routine 09/06/2017 1:2 5 PM EDT BODY FLUID CULTURE, AEROBIC & ANAEROBIC Routine 09/06/2017 1:25 PM EDT BODY FLUID CULTURE, AEROBIC Routine 09/06/2017 1:25 PM EDT documented in this encounter Results * IR Breast Drain Placement (09/06/2017 1:55 PM EDT) Anatomical Region Laterality Modality X-Ray Angiograph y Narrative 09/06/2017 4:00 PM EDT IR PROCEDURE NOTE Procedure: Left breast drain placement. Indication for Procedure: Per Wendy Maldonado APRN is a 52 y.o. female with a PMHx significant for HTN, and left breast cancer s/p bilateral mastectomy with tissue expanders (04/26/17). Multiple drains and aspiration to left breast in IR for seromas, and infections last being an aspiration on 06/26/17 when 35ml was aspirated adjacent to the left breast implant. IR has been consulted for left breast drain placement 2/2 new fluid collection. Procedure events and findings: After obtaining informed consent, pt was positioned supine on procedure table. ??Initial U/S showed fluid surrounding the Left breast air traffic controller center as seen on the ??breast US from earlier today. ??A site for drain placement was chosen and identified on the skin. ??The skin was prepped, and local anesthesia provided with 1% lidocaine. ??Maximum sterile barrier technique was used throughout. ??Due to the painful nature of the procedure, patient received split doses of intravenous fentanyl from the IR nurse while pulse, pressure, and oxygen saturation were continuously monitored. An 18 ga needle was directed into the collection with U/S guidance. ??A guide wire was placed and looped in the breast around the air traffic controller center under fluoroscopy, position within the collection confirmed with U/S. ??The access tract was dilated under fluoroscopy and a 8 Fr locking pigtail drainage catheter was placed. ??Post placement U/S showed the catheter within the fluid collection. ??Roughly 320 cc of mildly cloudy pale yellow fluid was aspirated. ??Catheter anchored with suture and connected to bulb drainage. ??Sample sent for gram stain and cultures. Medications: Fentanyl 150 mcg IV, ??1% Lidocaine <10ccs subcutaneous. Fluoro Time: ??0.3 mins Est Blood Loss: <5cc. Complications: ??No immediate. Impression: 1. ??Left breast drain placement, 8 Kenyan. 2. ??320 cc of mildly cloudy pale yellow fluid aspirated, sample sent for labs. Resident/Fellow: ??Dr. Mcgovern. Attending: I, Dr. Crowley performed this procedure. ?? Jolene Azevedo ROLLED OATS MILL OPERATOR IMG IR ORDERABLES * Anaerobic Culture (09/06/2017 1:25 PM EDT) Anaerobic Culture No anaerobic organisms isolated [facility] Fluid specimen (specimen) 09/06/2017 1:25 PM EDT 09/06/2017 2:03 PM EDT Comment:FLUID COLLECTION IN THE LEFT BREAST S/P BREAST RECON Narrative Resulting Agency Comment Spec In Lab Trinh Coates MD MICROBIOLOGY - GENER AL ORDERABLES Performing Organization Address City/[facility]/ZIP Co de Phone Number [facility] [place] [address] * (ABNORMAL) Body Fluid Culture, Aerobic (09/06/2017 1:25 PM EDT) Body Fluid Culture Few Escherichia coli(A) [facility] Gram Stain Cytocentrifuge Gram Stain performed Many White Blood Cells seen Rare Gram Positive Cocci seen (A) [facility] Organism Escherichia coli(A) [facility] Organism Gram Positive Cocci(A) [facility] Fluid specimen (specimen) 09/06/2017 1:25 PM EDT 09/06/2017 2:03 PM EDT Comment:FLUID COLLECTION IN THE LEFT BREAST S/P BREAST RECON Narrative Resulting Agency Comment Spec In Lab Organism Antibiotic Method Susceptibility Escherichia coli Amikacin MICROSCAN METHOD Sensitive Escherichia coli Ampicillin MICROSCAN METHOD Sensitive Escherichia coli Ampicillin + Sulbactam MICROSCAN METH OD Sensitive Escherichia coli Aztreonam MICROSCAN METHOD Sensitive Escherichia coli Cefazolin MICROSCAN METHOD Sensitive Escherichia coli Cefepime MICROSCAN METHOD <=4: Sensitive Escherichia coli Ceftazidime MICROSCAN METHOD <=1: Sensitive Escherichia coli Ceftriaxone MICROSCAN METHOD Sensitive Escherichia coli Cefuroxime MICROSCAN METHOD Sensitive Escherichia coli Ciprofloxacin MICROSCAN METHOD Sensitive Escherichia coli Gentamicin MICROSCAN METHOD Sensitive Escherichia coli Levofloxacin MICROSCAN METHOD Sensitive Escherichia coli Meropenem MICROSCAN METHOD <=1: Sensitive Escherichia coli Piperacillin/Tazobactam MICROSCAN MET HOD <=16: Sensitive Escherichia coli Tetracycline MICROSCAN METHOD Sensitive Escherichia coli Tigecycline MICROSCAN METHOD Sensitive Escherichia coli Tobramycin MICROSCAN METHOD Sensitive Escherichia coli Trimethoprim/Sulfa MICROSCAN METHOD Sensitive Trinh Coates MD MICROBIOLOGY - GENER AL ORDERABLES Performing Organization Address City/[facility]/ZIP Co de Phone Number [facility] [place] [address] documented in this encounter Visit Diagnoses Diagnosis Surgery follow-up Follow-up examination, following unspecified surgery documented in this encounter Administered Medications Inactive Administered Medications - up to 3 most recent administrations Medication Order MAR Action Action Date Dose Rate Site fentaNYL 50 mcg/mL multi-dose injection 25-50 mcg, Intravenous, EVERY 5 MIN PRN, Starting on Sosa 09/06/17 at 1203, Until Sosa 09/06/17 at 1345, Pain, per unit protocol, - Start dose [...] and verbal order., Angio/IR (Intra-Procedure), Routine Given 09/06/2017 1:44 PM EDT 25 mcg Given 09/06/2017 1:26 PM EDT 50 mcg Given 09/06/2017 1:19 PM EDT 25 mcg lidocaine (XYLOCAINE) 10 mg/mL (1 %) injection 10 mg 10 mg, Subcutaneous, ONCE, 1 dose, On Sosa 09/06/17 at 1230, For use in Interventional Radiology (IR) only for procedure with direct provider supervision and verbal order., Angio/IR (Intra-Procedure), Routine Given 09/06/2017 1:26 PM EDT 10 mg sodium chloride 0.9% infusion 1,000 mL, at 100 mL/hr, Intravenous, CONTINUOUS, Starting on Sosa 09/06/17 at 1230, Until Sosa 09/06/17 at 1425, Day of Surgery (Day of Procedure) New Bag 09/06/2017 12:50 PM EDT 1,000 mLs 100 mL/hr documented in this encounter Care Teams Poultry Scalder Relationship Specialty Start Date End Date Trinh Coates MD [facility] [address] [place] [address] PCP - General 01/11/10 documented as of this encounter
--- OUTSIDE RECORDS SUMMARY | 2023-09-07 11:31 | XMS_ITS | Encounter Summary ---
Author Organization [facility] Address [facility] [place] [address] Care Team Providers Care Chop Saw Operator Name Role Phone Trinh Coates MD Primary Care Provider Reason for Visit * Reason Comments Follow-up Encounter Details Date Type Department Care Team (Late st Contact Info) Description 08/03/2017 10:00 AM EDT Office Visit Hematology [place] [address] Sally Ren APRN [facility] [place] [address] Malignant neoplasm of upper-outer quadrant of left [...] Sign Reading Time Taken Comments Blood Pressure 148/92 08/03/2017 9:51 AM EDT Pulse 72 08/03/2017 9:51 AM EDT Temperature 36.6 ??C (97.9 ??F) 08/03/2017 9:51 AM ED T Respiratory Rate 18 08/03/2017 9:51 AM EDT Oxygen Saturation 97% 08/03/2017 9:51 AM EDT Inhaled Oxygen Concentration - - Weight 80.1 kg (176 lb 9.6 oz) 08/03/2017 9:51 A M EDT Height 157.4 cm (5' 1.97) 08/03/2017 9:51 AM ED T Body Mass Index 32.33 08/03/2017 9:51 AM EDT documented in this encounter Progress Notes * Sally Ren, LASER PRINTING OPERATOR - 08/03/2017 10:00 AM EDT Subjective: Patient ID: Wendy Sandoval is a 52 y.o. female here for cycle 2 of adjuvant chemotherapy today. Interval Hx: Wendy returns in follow up with her son and daughter today. She tolerated cycle one of AC very well. She did have nausea for 5 days after treatment, first thing in the morning. She only took compazine once. She also had heartburn that she took zantac for. She had a headache for one day, tylenol was mildly helpful. Her energy is fair, she gets tired in the afternoons. She is still working. Her appetite is good, bowels are regular. ROSEMARY Nguyen is a 51-year-old woman with a recent diagnosis of node positive breast cancer. She presented due to screening mammography, 03/08, this revealing a suspicious 2 cm nodule in the upper outer quadrant left breast. Right breast was unremarkable. Core biopsy demonstrated invasive cancer, ER/MO positive, HER- 2/pat negative. Breast MRI demonstrated [...] Cardiovascular: Negative. Gastrointestinal: Negative. Endocrine: Negative. Genitourinary: Menses started yesterday, heavier than usual Musculoskeletal: Negative. Skin: Negative. Allergic/Immunologic: Negative. Neurological: Negative. Hematological: Negative. Psychiatric/Behavioral: Negative. Objective: Physical Exam Constitutional: She is oriented to person, place, and time. She appears well- developed and well-nourished. No distress. HENT: Nose: Nose normal. Mouth/Throat: Oropharynx is clear and moist. No oropharyngeal exudate. Eyes: Conjunctivae and EOM are normal. Pupils are equal, round, and reactive to light. Right eye exhibits no discharge. Left eye exhibits no discharge. Neck: Neck supple. Cardiovascular: Normal rate, regular rhythm and normal heart sounds. No murmur heard. Pulmonary/Chest: Effort normal and breath sounds normal. She has no wheezes. She exhibits no tenderness. Abdominal: Soft. Bowel sounds are normal. She [...] mood and affect. Her behavior is normal. Recent Results (from the past 24 hour(s)) Comprehensive metabolic panel (non-fasting) Result Value Ref Range Glucose Lvl 158 65 - 199 mg/dL BUN 18 8 - 18 mg/dL Creatinine 0.95 0.70 - 1.20 mg/dL Sodium 140 135 - 145 mmol/L Potassium 3.3 (L) 3.5 - 5.0 mmol/L Chloride 99 98 - 107 mmol/L CO2 25 22 - 31 mmol/L Anion Gap 16 (H) 5 - 15 mmol/L Calcium 8.9 8.5 - 10.5 mg/dL Total Protein 6.8 6.1 - 8.0 gm/dL Albumin 3.9 3.2 - 5.2 gm/dL AST 13 0 - 30 unit/L ALT 18 0 - 30 unit/L Alk Phos 139 (H) 40 - 104 unit/L Total Bilirubin <0.2 (L) 0.2 - 1.3 mg/dL eGFR 68 >=60 mL/min/1.73 m?? eGFR 79 >=60 mL/min/1.73 m?? Hemogram Result Value Ref Range WBC 2.6 (L) 4.0 - 9.5 x10(3)/mcL RBC 4.33 4.00 - 5.21 x10(6)/mcL Hemoglobin 12.8 11.7 - 15.5 gm/dL Hematocrit 38.9 35.7 - 45.8 % MCV 89.8 82.6 - 94.4 fL MCH 29.6 27.1 - 32.0 pg MCHC 32.9 31.7 - 35.0 gm/dL Platelets 294 145 - 357 x10(3)/mcL RDWSD 44.4 37.0 - 46.0 fL RDWCV 13.5 11.5 - 14.1 % MPV 8.5 7.6 - 12.9 fL nRBC % Auto 0.0 % nRBC Abs Auto 0.000 0.000 - 0.000 x10(3)/mcL Differential, Automated Result Value Ref Range Neutrophils % 15.9 % Neutr Abs (ANC) 0.42 (CRIT) 1.70 - 6.10 x10(3)/mcL Lymphocytes % 46.0 % Lymphocytes Abs 1.2 0.9 - 3.2 x10(3)/mcL Monocytes % 21.7 % Monocyte Abs 0.6 0.3 - 0.9 x10(3)/mcL Eosinophils % 8.4 % Eosinophils Abs 0.2 0.0 - 0.4 x10(3)/mcL Basophils % 3.4 % Basophils Abs 0.1 0.0 - 0.1 x10(3)/mcL Immature Gran % 4.60 % Nova Gran Abs 0.12 (H) 0.00 - 0.04 x10(3)/mcL Assessment and Plan: Wendy Sandoval is a 52 y.o. with ER/MO positive, HER-2/pat negative left breast cancer. She is s/p bilateral MRM with SALVADOR reconstruction. This was complicated by delayed wound healing and infection. She had cycle 1 of AC 2 weeks ago, she tolerated this well but for some heartburn and nausea. Her labs are remarkable for neutropenia with an ANC of 0.42. She does not report any problems with the onpro injection kit, everything seemed to go well. Her potassium remains low. I will hold her chemotherapy today. I have increased her potassium to 60 meq per day- script sent to pharmacy. Plan to reschedule labs and chemo for next . Wendy will call with any fevers or signs of infection. Allquestions answered. Sally Ren APRN documented in this encounter Plan of Treatment Upcoming Encounters Date Type Department Care Team (Late Contact Info) Description 01/22/2024 10:30 AM EST Appointment Mammography/[place] [address] Ladi Mendosa MD [facility] [place]AT[place] [address] 01/30/2024 11:30 AM EST Office Visit Dermatology at [place] [address] [place] [phone] Nilda Luis MD [facility] [place] [address] 02/15/2024 9:30 AM EST App[place] [address] [place] [address] documented as of this encounter Visit Diagnoses Diagnosis Malignant neoplasm of upper-outer quadrant of left breast in female, estrogen receptor positive documented in this encounter Care Teams Chop Saw Operator Relationship Specialty Start Date End Date Trinh Coates MD [facility] [address] [place] [address] PCP - General 01/11/10 documented as of this encounter
--- OUTSIDE RECORDS SUMMARY | 2023-09-07 11:31 | XMS_ITS | Encounter Summary ---
Author Organization Counts Include [facility] Address [facility] [place] [address] Care Team Providers Care Mushroom Cutter Name Role Phone Trinh Coates MD Primary Care Provider [phone] Encounter Details Date Type Department Care Team (Late st Contact Info) Description 10/01/2017 Orders Only Hematology [place] [phone] Sally Ren APRN [facility] [place] [address] Social History Tobacco Use Types Packs/Day Years [...] 01/22/2024 10:30 AM EST Appointment Mammography[place] [address] Ladi Mendoas MD [facility] HEMATOLOGY/[place] [address] 01/30/2024 11:30 AM EST Office Visit Dermatology at [facility] [address] [place] [address] Nilda Luis MD [facility] [address] [place] [address] 02/15/2024 9:30 AM EST [place]ment [place] [phone] [place] [address] documented as of this encounter Visit Diagnoses Not on filedocumented in this encounter Care Teams Mushroom Cutter Relationship Specialty Start Date End Date Trinh Coates MD [facility] [address] [address] PCP - General 01/11/10 documented as of this encounter
--- OUTSIDE RECORDS SUMMARY | 2023-09-07 11:31 | XMS_ITS | Encounter Summary ---
Author Organization [facility] [place] [address] Care Team Providers Care Aircraft De Icer Installer Name Role Phone Trinh Coates MD Primary Care Provider [phone] Reason for Visit * Treatment/Therapy Plan Authorization (Routine) - Closed Specialty Diagnoses / Procedures Referred By Diamante marin Referred To Contact Diagnoses Malignant neoplasm of upper-outer quadrant of left breast in female, estrogen receptor positive Procedures TC PACLITAXEL, 1MG, INJ TC PEGFILGRASTIM, 6MG, INJECTION Josias Barnett MD [facility] DR HEMATOLOGY/[place] [address] [facility] Hem Onc [address] [place] [address] Referral ID Status Reason Start Date Expiration Date Visits Re quested Visits Authorized [id number] Closed 10/01/2017 10/01/2018 21 21 Encounter Details Date Type Department Care Team (Latest Contact Info) Description 10/04/2017 7:15 AM EDT - 10/04/2017 7:19 AM EDT Hospital Encounter Hematology [place] [address] Malignant neoplasm of upper-outer quadrant [...] as of this encounter Progress Notes * Joan Grubbs RN - 10/04/2017 7:33 AM EDT Patient Name: Wendy Sandoval Patient Age: 52 y.o. Birthdate: 1965 Admit date: 10/04/2017 Attending Physician: No att. providers found Mediport accessed, labs drawn; see MAR/flowsheet. documented in this encounter Plan of Treatment Upcoming Encounters Date Type Department Care Team (Late st Contact Info) Description 01/22/2024 10:30 AM EST Appointment Mammography/[place] [phone] Ladi Mendosa MD [facility] HEMATOLOGY/[place] [address] 01/30/2024 11:30 AM EST Office Visit Dermatology at [facility] [address] [place] [phone] Nilda Luis MD [facility] DR LIDIA AGUIL[place] [address] 02/15/2024 9:30 AM EST [place] [address] [place] [address] documented as of this encounter Procedures Procedure Name Priority Date/Time Associated Diagnosis Comments SMEAR REVIEW REPORT Routine 10/04/2017 7 :30 AM EDT DIFFERENTIAL, MANUAL STAT 10/04/2017 7:30 AM EDT HEMOGRAM STAT 10/04/2017 7:30 AM EDT Malignant neoplasm of upper-outer quadrant of left breast in female, estrogen receptor positive CBC (WITH DIFF) STAT 10/04/2017 7:30 AM EDT Malignant neoplasm of upper-outer quadrant of left breast in female, estrogen receptor positive COMPREHENSIVE METABOLIC PANEL (NON-FASTING) STAT 10/04/2017 7:30 AM EDT Malignant neoplasm of upper-outer quadrant of left breast in female, estrogen receptor positive documented in this encounter Results * Smear Review Report (10/04/2017 7:30 AM EDT) Smear Review Report [id number] ? Location: The signing pathologist has (i) examined the relevant preparation(s) for the specimen(s) and (ii) rendered or confirmed the diagnosis(es). . ? Smear Review DIAGNOSIS PERIPHERAL BLOOD, SMEAR: ?? 1. ??Moderate normochromic normocytic anemia ?? 2. ??Left-shifted granulocytosis Electronically signed by: ??Marcos Dickinson MD Verified: ??10/05/2017 ?Hematopathologi st Performed at: ??-[facility] Dept. of Pathology, [place], [place] DISCUSSION The findings are likely related to the patient ?? 's history of cancer treatment and neulasta therapy. Clinical correlation is recommended. ADDITIONAL STUDIES WBC ??15.31x071/uL, RBC 3.20x10 6/uL, HGB 9.7g/dL, HCT 29.6%, MCV 92.5fL, MCHC 32.8g/dL, RDW-CV 16.6%, PLT 247x10 ?? 3/uL The peripheral smear shows a moderate normochromic normocytic anemia. Anisopoikilocytos is is increased, and ovalocytes and rare teardrop cells are seen. Polychromasia is mildly increased. The platelet counts and morphology are normal. The white cell count is increased due to an absolute left-shifted granulocytosis (ANC 12.19x10 3/uL, IG 0.8x10 3/uL). The neutrophils are left shifted and display reactive changes including toxic granulation. A few left-shifted granulocytic precursors are also seen. Remaining leukocyte morphology is generally unremarkable. CLINICAL INFORMATION A 52 year old woman for whom smear review was requested internally by the lab for leukocyte morphology review. The clinical history is significant for ER/MA positive HER-2/pat negative breast cancer. She is s/p MRM and SALVADOR reconstruction, complicated by infection and delayed wound healing. She is on aduvant chemotherapy and also on neulasta, with the last dose given on 10/04/2017. [facility] 10/04/2017 7:30 AM EDT Josias Barnett MD PATHOLOGY/CYTOLOGY O RDERASIERRA Performing Organization Address City/State/[facility] Co de Phone Number [facility] [place] [address] * (ABNORMAL) Differential, Manual (10/04/2017 7:30 AM EDT) Neutrophil % 77 % [facility] Lymphocyte % 5 % [facility] Monocyte % 7 % [facility] Eosinophil % 4 % [facility] Basophil % 2 % [facility] Metamyelo % 4 % [facility] Blasts % 1 % [facility] Neutrophil Abs 12.2(H) 1.5 - 6.3 x10(3)/[facility] LABORATORY Neutr Abs (ANC) 12.19(H) 1.70 - 6.10 x10(3)/[facility]ATORY Lymphocyte Abs 0.8(L) 1.0 - 3.6 x10(3)/[facility] Monocyte Abs 1.1(H) 0.2 - 1.0 x10(3)/[facility]ATORY Eosinophil Abs 0.6(H) 0.0 - 0.5 x10(3)/[facility] Basophil Abs 0.3(H) 0.0 - 0.2 x10(3)/[facility]ORATORY Metamyelo Abs 0.6(H) 0.0 - 0.0 x10(3)/[facility] Blast Abs 0.2(H) 0.0 - 0.0 x10(3)/[facility] LABORATORY Tot Diff Cell Ct 100 [facility] Plat Estimate Normal [facility] RBC Morphology Abnormal [facility] Microcytes 1-5 /HPF [facility] Ovalocytes 1-5 /HPF [facility] Toxic Granulation Present [facility] Dohle Bodies Present [facility] Giant Platelets Less than 1 /HPF [facility] Blood specimen (specimen) 10/04/2017 7:30 AM EDT 10/04/2017 7:39 AM EDT Narrative Resulting Agency Comment Spec In Lab Josias Barnett MD HEMATOLOGY ORDERABLE S [facility] [place] [address] * (ABNORMAL) Hemogram (10/04/2017 7:30 AM EDT) WBC 15.8(H) 4.0 - 9.5 x10(3)/[facility] LABORATORY RBC 3.20(L) 4.00 - 5.21 x10(6)/[facility] Hemoglobin 9.7(L) 11.7 - 15.5 gm/dL [facility] Hematocrit 29.6(L) 35.7 - 45.8 % [facility] MCV 92.5 82.6 - 94.4 fL [facility] MCH 30.3 27.1 - 32.0 pg [facility] MCHC 32.8 31.7 - 35.0 gm/dL [facility] Platelets 247 145 - 357 x10(3)/[facility] LABORATORY RDWSD 55.8(H) 37.0 - 46.0 [facility] RDWCV 16.6(H) 11.5 - 14.1 % [facility] MPV 9.2 7.6 - 12.9 [facility] nRBC % Auto 0.1 % [facility] nRBC Abs Auto 0.020(H) 0.000 - 0.000 x10(3)/[facility] Blood specimen (specimen) 10/04/2017 7:30 AM EDT 10/04/2017 7:39 AM EDT Narrative Resulting Agency Comment Spec In Lab Josias Barnett MD HEMATOLOGY ORDERABLE S [facility] [place] [address] * (ABNORMAL) Comprehensive metabolic panel (non-fasting) (10/04/2017 7:30 AM EDT) Glucose Lvl 104 65 - 199 mg/dL [facility] Comment:Diabetes: >=200 mg/d L plus symptoms BUN 15 8 - 18 mg/dL [facility] Creatinine 0.97 0.70 - 1.20 mg/dL [facility] Sodium 140 135 - 145 mmol/L [facility] Potassium 3.6 3.5 - 5.0 mmol/L [facility] Comment: Please note: ??Patients with WBC >100,000 may have falsely elevated Potassium levels. ??For accurate Potassium quantification in these patients send serum separator tube (gold top) for subsequent determinations. ??Contact the Clinical Chemistry Laboratory if there are any questions. Chloride 102 98 - 107 mmol/L [facility] CO2 24 22 - 31 mmol/L [facility] Anion Gap 14 5 - 15 mmol/L [facility] Calcium 8.5 8.5 - 10.5 mg/dL [facility] Total Protein 6.7 6.1 - 8.0 gm/dL [facility] Albumin 3.8 3.2 - 5.2 gm/dL [facility] AST 9 0 - 30 unit/L [facility] ALT 15 0 - 30 unit/L [facility] Alk Phos 122(H) 40 - 104 unit/L [facility] Total Bilirubin 0.2 0.2 - 1.3 mg/dL [facility] Estimated GFR 66 >=60 mL/min/1. 73 m?? [facility] Comment: The eGFR was calculated using the CKD-EPI equation. As with all creatinine based estimates of kidney function, eGFR values calculated with the CKD-EPI equation are not accurate in patients with acute kidney failure, extremes of body mass or the acutely ill. http://[employer]/[facility] eGFR 77 >=60 mL/min/1. 73 m?? [facility] Comment: The eGFR was calculated using the CKD-EPI equation. As with all creatinine based estimates of kidney function, eGFR values calculated with the CKD-EPI equation are not accurate in patients with acute kidney failure, extremes of body mass or the acutely ill. http://[employer]/[facility] Blood specimen (specimen) 10/04/2017 7:30 AM EDT 10/04/2017 7:39 AM EDT Narrative Resulting Agency Comment Spec In Lab Josias Barnett MD CHEMISTRY ORDERABLES [facility] [place] [address] documented in this encounter Visit Diagnoses Diagnosis Malignant neoplasm of upper-outer quadrant of left breast in female, estrogen receptor positive- Primary documented in this encounter Administered Medications Inactive Administered Medications - up to 3 most recent administrations Medication Order MAR Action Action Date Dose Rate Site sodium chloride 0.9 % flush 5-20 mL 5-20 mL, Intravenous, EVERY 1 MIN PRN, Starting on Sosa 10/04/17 at 0719, Until 10/05/17 at 0438, Line Care, Flush pertains to all indwelling lines. Flush per protocol found in the job aid using the link provided on this medication record. Refer to Intravenous (IV) Job Aid: Adult Flushing & Catheter Care (5455) job aid for additional information regarding guidelines and administration., Routine Given 10/04/2017 7:32 AM EDT 20 mLs documented in this encounter Care Teams Aircraft De Icer Installer Relationship Specialty Start Date End Date Trinh Coates MD [address] [place] [address] PCP - General 01/11/10 documented as of this encounter
--- OUTSIDE RECORDS SUMMARY | 2023-09-07 11:31 | XMS_ITS | Encounter Summary ---
Author Organization Formerly [facility] Address [facility] [place] [address] Care Team Providers Care International Affairs Vice President Name Role Phone Trinh Coates MD Primary Care Provider [phone] Encounter Details Date Type Department Care Team (Latest Contact Info) Description 09/06/2017 10:43 AM EDT - 09/06/2017 11:28 AM EDT Hospital [place] [address] Andre Gimenez MD [facility] [place] [address] S/P breast reconstruction, bilateral; Seroma of breast Discharge Disposition: Home Social History [...] 01/22/2024 10:30 AM EST Appointment Mammography/[place] [phone] Ladi Mendosa MD [facility] HEMATOLOGY/[place] [address] 01/30/2024 11:30 AM EST Office Visit Dermatology at [place] [address] [place] [phone] Nilda Luis MD [facility] DR LIDIA [place] [address] 02/15/2024 9:30 AM EST [place] [address] [place] [address] documented as of this encounter Procedures Procedure Name Priority Date/Time Associated Diagnosis Comments MAMMO BREAST US LIMITED LEFT Routine 09/06/2017 11:29 AM EDT S/P breast reconstruction, bilateral Seroma of breast documented in this encounter Results * US Breast Limited [...] breast documented in this encounter Care Teams International Affairs Vice President Relationship Specialty Start Date End Date Trinh Coates MD [facility] [address] [facility] [address] [place] [address] PCP - General 01/11/10 documented as of this encounter
--- OUTSIDE RECORDS SUMMARY | 2023-09-07 11:31 | XMS_ITS | Encounter Summary ---
Author Organization [facility] Address [place] [address] Care Team Providers Care Residence Director Name Role Phone Trinh Coates MD Primary Care Provider [phone] Encounter Details Date Type Department Care Team (Late st Contact Info) Description 08/09/2017 11:00 AM EDT Office Visit Hematology [place] [address] Jimmie Mays APRN [facility] [place] [address] Malignant neoplasm of upper-outer quadrant of left [...] Sign Reading Time Taken Comments Blood Pressure 163/99 08/09/2017 10:59 AM EDT Pulse 93 08/09/2017 10:59 AM EDT Temperature 36.2 ??C (97.2 ??F) 08/09/2017 10:59 AM E DT Respiratory Rate 18 08/09/2017 10:59 AM EDT Oxygen Saturation 98% 08/09/2017 10:59 AM EDT Inhaled Oxygen Concentration - - Weight 79.7 kg (175 lb 9.6 oz) 08/09/2017 10:59 AM EDT Height 157.2 cm (5' 1.89) 08/09/2017 10:59 AM E DT Body Mass Index 32.23 08/09/2017 10:59 AM EDT documented in this encounter Progress Notes * Jimmie Mays, PROJECT ENGINEER CHEMICALS - 08/09/2017 11:00 AM EDT Subjective: Patient ID: Wendy Sandoval is a 52 y.o. female here for cycle 2 of adjuvant chemotherapy today. Interval Hx: Wendy returns in follow up with her daughter today. Her second cycle was put on hold last week for neutropenia. She has continued to feel fatigued this week and usually takes a nap late morning. Her hair has started to fall out and is very tender to lay on. She is otherwise feeling well. ROSEMARY Nguyen is a 51-year-old woman with a recent diagnosis of node positive breast cancer. She presented due to screening mammography, 03/08, this revealing a suspicious 2 cm nodule in the upper outer quadrant left breast. Right breast was unremarkable. Core biopsy demonstrated invasive cancer, ER/FL positive, HER- 2/pat negative. Breast MRI demonstrated [...] tenderness. Port in right chest, site benign. Abdominal: Soft. Bowel sounds are normal. She [...] (non-fasting) Result Value Ref Range Glucose Lvl 155 65 - 199 mg/dL BUN 18 8 - 18 mg/dL Creatinine 0.95 0.70 - 1.20 mg/dL Sodium 140 135 - 145 mmol/L Potassium 3.0 (CRIT) 3.5 - 5.0 mmol/L Chloride 98 98 - 107 mmol/L CO2 27 22 - 31 mmol/L Anion Gap 15 5 - 15 mmol/L Calcium 8.9 8.5 - 10.5 mg/dL Total Protein 6.9 6.1 - 8.0 gm/dL Albumin 4.1 3.2 - 5.2 gm/dL AST 16 0 - 30 unit/L ALT 21 0 - 30 unit/L Alk Phos 138 (H) 40 - 104 unit/L Total Bilirubin <0.2 (L) 0.2 - 1.3 mg/dL eGFR 68 >=60 mL/min/1.73 m?? eGFR 79 >=60 mL/min/1.73 m?? Hemogram Result Value Ref Range WBC 11.4 (H) 4.0 - 9.5 x10(3)/mcL RBC 4.33 4.00 - 5.21 x10(6)/mcL Hemoglobin 12.9 11.7 - 15.5 gm/dL Hematocrit 38.7 35.7 - 45.8 % MCV 89.4 82.6 - 94.4 fL MCH 29.8 27.1 - 32.0 pg MCHC 33.3 31.7 - 35.0 gm/dL Platelets 486 (H) 145 - 357 x10(3)/mcL RDWSD 44.2 37.0 - 46.0 fL RDWCV 13.7 11.5 - 14.1 % MPV 8.8 7.6 - 12.9 fL nRBC % Auto 0.2 % nRBC Abs Auto 0.020 (H) 0.000 - 0.000 x10(3)/mcL Differential, Automated Result Value Ref Range Neutrophils % 61.8 % Neutr Abs (ANC) 7.02 (H) 1.70 - 6.10 x10(3)/mcL Lymphocytes % 14.6 % Lymphocytes Abs 1.7 0.9 - 3.2 x10(3)/mcL Monocytes % 12.7 % Monocyte Abs 1.4 (H) 0.3 - 0.9 x10(3)/mcL Eosinophils % 2.0 % Eosinophils Abs 0.2 0.0 - 0.4 x10(3)/mcL Basophils % 2.6 % Basophils Abs 0.3 (H) 0.0 - 0.1 x10(3)/mcL Immature Gran % 6.30 % Nova Gran Abs 0.72 (H) 0.00 - 0.04 x10(3)/mcL Scan, Peripheral Blood Result Value Ref Range Plat Estimate Increased RBC Morphology Normal Giant Platelets Less than 1 /HPF Assessment and Plan: Wendy Sandoval is a 52 y.o. with ER/FL positive, HER-2/pat negative left breast cancer. She is s/p bilateral MRM with SALVADOR reconstruction. This was complicated by delayed wound healing and infection. She had cycle 1 of AC 3 weeks ago, she tolerated this well but for some heartburn and nausea. Cycle2 was delayed for neutropenia. Her counts are as above and adequate for treatment today. She does have critical K+ of 3.0, I will order 20 meq of IV replacement. She will use the Onpro injection kit for neulasta delivery. She will call with any fevers or signs of infection. All questions answered. We will see her back in 2 weeks for consideration of cycle 3. Jimmie Mays APRN documented in this encounter Miscellaneous Notes * Addendum Note - Jimmie Mays APRN - 08/09/2017 12:02 PM EDTAddended by: JIMMIE MAYS on: 08/09/2017 12:02 PM Modules accepted: Orders documented in this encounter Plan of Treatment Upcoming Encounters Date Type Department Care Team (Late st Contact Info) Description 01/22/2024 10:30 AM EST Appointment Mammography/[place] [phone] Ladi Mendosa MD [facility] HEMATOLOGY/[place] [address] 01/30/2024 11:30 AM EST Office Visit Dermatology at [address] [phone] Nilda Luis MD [facility] [place] [address] 02/15/2024 9:30 AM EST [place] [phone] [place] [address] documented as of this encounter Visit Diagnoses Diagnosis Malignant neoplasm of upper-outer quadrant of left breast in female, estrogen receptor positive documented in this encounter Care Teams Residence Director Relationship Specialty Start Date End Date Trinh Coates MD [facility] [address] [place] [address] PCP - General 01/11/10 documented as of this encounter
--- OUTSIDE RECORDS SUMMARY | 2023-09-07 11:31 | XMS_ITS | Encounter Summary ---
Author Organization [facility] Address [facility] [place] [place] [address] Care Team Providers Care Independent Sales Representative Name Role Phone Trinh Coates MD Primary Care Provider [phone] Reason for Visit * Reason Comments Chemotherapy [...] TC PEGFILGRASTIM, 6MG, INJECTION Gustavo Mota MD [facility] DR HEMATOLOGY/[place] [address] [facility] [address] [place] [address] Referral ID Status Reason Start Date Expiration Date Visits Re quested Visits Authorized [id number] Closed 07/02/2017 07/02/2018 12 12 Encounter Details Date Type Department Care Team (Latest Contact Info) Description 08/09/2017 9:43 AM EDT Hospital Encounter Hematology [place] [address] Malignant neoplasm of upper-outer quadrant [...] as of this encounter Progress Notes * Rasheeda Knight RN - 08/09/2017 4:29 PM EDT Patient Name: Wendy Sandoval Patient Age: 52 y.o. Birthdate: 1965 Admit date: 08/09/2017 Attending Physician: No att. providers found Wendy Sandoval, 52 y.o. female with diagnosis of Breast cancer is here for chemotherapy infusionof Adriamycin and cytoxan, 20meq of potassium PROTOCOL: CYCLE: 2 DAY: 1 S: Pt. offers no complaints at this time. O: Chemotherapy orders independently verified for correct drug name, route and dosage per patient'sheight, weight and BSA by Batsheva Knight RN and onsite pharmacist REACTIONS (DESCRIPTION, TIME, INTERVENTION AND EFFECTIVENESS) none A: Pt. Tolerated treatment well. Wendy Sandoval confirms that all questions and issues have beenaddressed. P: Return to clinic per schedule documented in this encounter Plan of Treatment Upcoming Encounters Date Type Department Care Team (Late st Contact Info) Description 01/22/2024 10:30 AM EST Appointment Mammography/[place] [phone] Ladi Mendosa MD [facility] HEMATOLOGY/[place] [address] 01/30/2024 11:30 AM EST Office Visit Dermatology at [facility] [address] [place] [address] Nilda Luis MD [facility] [address] [place] [address] 02/15/2024 9:30 AM EST Appointment [place] [phone] [place] [address] documented as of this encounter Visit Diagnoses [...] weight), Intravenous, ONCE, 1 dose, On Sosa 08/09/17 at 1415, Administer over 30 Minutes, Warning Vesicant/Irritant Medication New Bag 08/09/2017 3:40 PM EDT 1,098 mg 609.8 mL/hr dexamethasone (DECADRON) injection 10 mg 10 mg, Intravenous, ONCE, 1 dose, On Sosa 08/09/17 at 1315, Administer prior to chemotherapy Given 08/09/2017 1:16 PM EDT 10 mg DOXOrubicin (ADRIAMYCIN) chemo injection 109.8 mg 109.8 mg (60 mg/m2/dose ? 1.83 m2 Treatment Plan BSA from Recorded weight), Intravenous, ONCE, 1 dose, On Sosa 08/09/17 at 1415, Administer over 3 Minutes, Administer each syringe over a minimum of 3 minutes per syringe. Given 08/09/2017 3:31 PM EDT 109.8 mg 1098 mL/hr fosaprepitant (EMEND) 150 mg in sodium chloride 0.9% 155 mL infusion 150 mg, Intravenous, at 310 mL/hr, Administer over 30 Minutes, ONCE, 1 dose, On Sosa 08/09/17 at 1315, Routine New Bag 08/09/2017 2:40 PM EDT 150 mg 310 mL/hr heparin, porcine 100 unit/mL flush 500 Units 500 Units, Intravenous, ONCE PRN, Starting on Sosa 08/09/17 at 1256, Until Sun08/10/17 at 0441, Line Care, Refer to Intravenous (IV) Procedure: Accessing Implanted Vascular Access Devices (654) procedure and/or Intravenous (IV) Job Aid: Adult Flushing & Catheter Care (5959) job aid for additional information regarding guidelines and administration., Routine Given 08/09/2017 4:20 PM EDT 500 Units LORazepam (ATIVAN) tablet 0.5 mg 0.5 mg, Oral, ONCE, 1 dose, On Sosa 08/09/17 at 1315, Administer prior to chemotherapy, Routine Given 08/09/2017 1:59 PM EDT 0.5 mg palonosetron (ALOXI) injection 0.25 mg 0.25 mg, Intravenous, ONCE, 1 dose, On Sosa 08/09/17 at 1315, Administer over 30 seconds. Administer prior to chemotherapy, Routine Given 08/09/2017 2:32 PM EDT 0.25 mg pegfilgrastim (NEULASTA ONPRO) injection kit 6 mg, Subcutaneous, ONCE, 1 dose, On Sosa 08/09/17 at 1315, Allow the prefilled syringe co-packaged with the on-body injector to reach room temperature at least 30 minutes prior to administration., Routine, This agent is restricted to outpatient use. Is this drug being given as an outpatient? Yes Given 08/09/2017 4:30 PM EDT 6 mg Right Arm potassium chloride 20 mEq in 100 mL 20 mEq, Intravenous, ONCE, 1 dose, On Sosa 08/09/17 at 1315, Administer over 60 Minutes, Warning Vesicant/Irritant Medication New Bag 08/09/2017 1:20 PM EDT 20 mEq 100 mL/hr prochlorperazine (COMPAZINE) tablet 10 mg 10 mg, Oral, ONCE, 1 dose, On Sosa 08/09/17 at 1315, Maximum dose: 50 mg / 24 hrs, Routine Given 08/09/2017 1:59 PM EDT 10 mg documented in this encounter Care Teams Independent Sales Representative Relationship Specialty Start Date End Date Trinh Coates MD [address] [place] [address] PCP - General 01/11/10 documented as of this encounter
--- OUTSIDE RECORDS SUMMARY | 2023-09-07 11:31 | XMS_ITS | Encounter Summary ---
Author Organization [facility] [place] [address] Care Team Providers Care Frameman Name Role Phone Trinh Coates MD Primary Care Provider [phone] Reason for Visit * Reason Comments Follow Up Surgery Encounter Details Date Type Department Care Team (Late st Contact Info) Description 09/18/2017 10:00 AM EDT Office [place] [address] Jolene Azevedo APRN [facility] [place] [address] Surgery follow-up; S/P breast reconstruction, bilateral; Seroma of breast [...] * Patient Instructions* Jolene Azevedo APRN - 09/18/2017 10:00 AM EDT Follow up weekly. Complete course of Keflex. Prescription for Augmented once Keflex runs out. documented in this encounter Progress Notes * Jolene Azevedo APRN - 09/18/2017 10:00 AM EDT Plastic Surgery Follow Up Note Date of surgery: 04/26/17 Procedure(s): Bilateral breast reconstruction with attempted SALVADOR flaps, eventual tissue steel spar operator placement with Fontana Artoura 600 cc expanders placed bilaterally and filled with 450 cc of methyleneblue impregnated saline.) Complications: right parietal and visceral pleural tear, arterial flap failure bilaterally Date of surgery: 06/22/17 Procedure(s) left breast wound debridement, excision and closure. Debridement of umbilicus. Deflation of steel spar operator volume, This leaves 450 cc in the left tissue steel spar operator and 500 cc on the right side Chemotherapy: yes Radiation: TBD HPI: Pt reports no new changes. She continues to have drain output of 50-70 ml per day.She continues to have pain to the left breast, inferiorly. She continues to take her course of Keflex. Examination: Temp-98.3 Patient is alert, conversant, comfortable, ambulating Tissue expanders in place. Left breast drain in place with serous fluid in bag. Left breast with mild erythema. Superior pole fullness. Impression: Wendy Sandoval is a 52 y.o. female who was seen today for follow- up after the above procedure. Please see the operative note for details. Continues with erythema but slight improvementand continues to have high drain output. Currently without signs of acute infection. From a plasticsurgery standpoint, may advance with chemo while drain in place. Will remain on antibiotics until drain removed. Plan: Follow up weekly. Complete course of Keflex. Prescription for Augmented once Keflex runs out. IAilyn have performed the documentation for this encounter in the presence of and acting as a scribe for JOLENE AZEVEDO APRN. I performed the services which were documented by the scribe, and I agree with the accuracy of the documentation in this encounter. AARTI CHILD Dr. examined patient. He agrees with this plan. documented in this encounter Plan of Treatment Upcoming Encounters Date Type Department Care Team (Late st Contact Info) Description 01/22/2024 10:30 AM EST Appointment Mammography/[place] [address] Ladi Mendosa MD [facility] HEMATOLOGY/[place] [address] 01/30/2024 11:30 AM EST Office Visit Dermatology at [facility] [address] [place] [phone] Nilda Luis MD [facility] DR [address] [place] [address] 02/15/2024 9:30 AM EST Appointment Radiology at [place] [phone] [place] [address] documented as of this encounter Visit Diagnoses Diagnosis Surgery follow-up Follow-up examination, following unspecified surgery S/P breast reconstruction, bilateral Breast replaced by other means Seroma of breast documented in this encounter Care Teams Frameman Relationship Specialty Start Date End Date Trinh Coates MD [facility] [address] [facility] [address] [place] [address] PCP - General 01/11/10 documented as of this encounter
--- OUTSIDE RECORDS SUMMARY | 2023-09-07 11:31 | XMS_ITS | Encounter Summary ---
Author Organization [facility] Address [facility] [place] [address] Care Team Providers Care Rn Ortho Name Role Phone Trinh Coates MD Primary Care Provider [phone] Reason for Visit * Reason Comments Chemotherapy AC OnPro * Treatment/Therapy Plan Authorization (Routine) - Closed Specialty Diagnoses / Procedures Referred By Diamante marin Referred To Contact Hematology and Oncology Diagnoses Malignant neoplasm of upper-outer quadrant of left breast in female, estrogen receptor positive Procedures TC PALONOSETRON HCL, 25MCG, INJECTION (ALOXI) TC DOXORUBICIN HCL, 10MG, INJECTION (ADRIAMYCIN) TC CYCLOPHOSPHAMIDE, 100MG (CYTOXAN) TC PEGFILGRASTIM, 6MG, INJECTION Gustavo Mota MD [facility] DR HEMATOLOGY/[place] [address] [facility] [address] [place] [address] Referral ID Status Reason Start Date Expiration Date Visits Re quested Visits Authorized [id number] Closed 07/02/2017 07/02/2018 12 12 Encounter Details Date Type Department Care Team (Latest Contact Info) Description 09/20/2017 8:47 AM EDT - 09/20/2017 11:59 PM EDT Hospital Encounter Hematology [place] [address] Malignant neoplasm of upper-outer quadrant [...] of this encounter Progress Notes * Jay Tate RN - 09/20/2017 11:42 AM EDT Patient Name: Wendy Sandoval Patient Age: 52 y.o. Birthdate: 1965 Admit date: 09/20/2017 Attending Physician: No att. providers found TIME TREATMENT STARTED: 1130 TIME TREATMENT ENDED: 1415 Wendy Sandoval, 52 y.o. female with diagnosis of Breast Ca is here for chemotherapy infusion of AC/OnPro. PROTOCOL: NA CYCLE: 4 WEEK: NA DAY: 1 S: Pt. offers no complaints at this time. Blood return noted before during and after the administration of Adriamycin. OnPro flashing green upon discharge. Patient discharged to home with son. O: Patient's Chemotherapy orders independently verified for correct drug name, route and dosage perpatient's height, weight and BSA by Jay Tate RN and Pharmacist. REACTIONS (DESCRIPTION, TIME, INTERVENTION AND EFFECTIVENESS) None noted. A: Pt. Tolerated treatment well. Wendy Sandoval confirms that all questions and issues have beenaddressed. Fluid intake, exercise, watching for a fever and handwashing discussed with patient. P: Return to clinic per routine. documented in this encounter Plan of Treatment Upcoming Encounters Date Type Department Care Team (Late st Contact Info) Description 01/22/2024 10:30 AM EST Appointment Mammography/[place] [phone] Ladi Mendosa MD [facility] HEMATOLOGY/[place] [address] 01/30/2024 11:30 AM EST Office Visit Dermatology at [address] [place] [address] Nilda Luis MD [facility] DR [address] [place] [address] 02/15/2024 9:30 AM EST [place] [phone] [place] [address] documented as of this encounter Visit Diagnoses Diagnosis Malignant neoplasm of upper-outer quadrant of left breast in female, estrogen receptor positive documented in this encounter Administered Medications Inactive Administered Medications - up to 3 most recent administrations Medication Order MAR Action Action Date Dose Rate Site aprepitant (CINVANTI) injection Emul 130 mg 130 mg, Intravenous, Administer over 2 Minutes, ONCE, 1 dose, On Sosa 09/20/17 at 1100, Alternative administration of IV push over 2 minutes is a recommendation from the director organizational., Routine Given 09/20/2017 12:26 PM EDT 130 mg cyclophosphamide (CYTOXAN) 1,098 mg in sodium chloride 0.9% 304.9 mL chemo infusion 1,098 mg (600 mg/m2/dose ? 1.83 m2 Treatment Plan BSA from Recorded weight), Intravenous, ONCE, 1 dose, On Sosa 09/20/17 at 1145, Administer over 30 Minutes, Warning Vesicant/Irritant Medication New Bag 09/20/2017 1:22 PM EDT 1,098 mg 609.8 mL/hr dexamethasone (DECADRON) injection 10 mg 10 mg, Intravenous, ONCE, 1 dose, On Sosa 09/20/17 at 1045, Administer prior to chemotherapy Given 09/20/2017 12:07 PM EDT 10 mg DOXOrubicin (ADRIAMYCIN) chemo injection 109.8 mg 109.8 mg (60 mg/m2/dose ? 1.83 m2 Treatment Plan BSA from Recorded weight), Intravenous, ONCE, 1 dose, On Sosa 09/20/17 at 1145, Administer over 3 Minutes, Administer each syringe over a minimum of 3 minutes per syringe. Given 09/20/2017 1:10 PM EDT 109.8 mg 1098 mL/hr heparin, porcine 100 unit/mL flush 500 Units 500 Units, Intravenous, ONCE PRN, Starting on Sosa 09/20/17 at 1028, Until Sun09/21/17 at 0437, Line Care, Refer to Intravenous (IV) Procedure: Accessing Implanted Vascular Access Devices (454) procedure and/or Intravenous (IV) Job Aid: Adult Flushing & Catheter Care (3999) job aid for additional information regarding guidelines and administration., Routine Given 09/20/2017 2:09 PM EDT 500 Units LORazepam (ATIVAN) tablet 0.5 mg 0.5 mg, Oral, ONCE, 1 dose, On Sosa 09/20/17 at 1045, Administer prior to chemotherapy, Routine Given 09/20/2017 12:05 PM EDT 0.5 mg palonosetron (ALOXI) injection 0.5 mg 0.5 mg, Intravenous, ONCE, 1 dose, On Sosa 09/20/17 at 1045, Administer over 30 seconds. Administer prior to chemotherapy, Routine Given 09/20/2017 12:23 PM EDT 0.5 mg pegfilgrastim (NEULASTA ONPRO) injection kit 6 mg, Subcutaneous, ONCE, 1 dose, On Sosa 09/20/17 at 1045, Allow the prefilled syringe co-packaged with the on-body injector to reach room temperature at least 30 minutes prior to administration., Routine, This agent is restricted to outpatient use. Is this drug being given as an outpatient? Yes Given 09/20/2017 2:06 PM EDT 6 mg Right Arm prochlorperazine (COMPAZINE) tablet 10 mg 10 mg, Oral, ONCE, 1 dose, On Sosa 09/20/17 at 1045, Maximum dose: 50 mg / 24 hrs, Routine Given 09/20/2017 12:05 PM EDT 10 mg documented in this encounter Care Teams Rn Ortho Relationship Specialty Start Date End Date Trinh Coates MD [address] [place] [address] PCP - General 01/11/10 documented as of this encounter
--- OUTSIDE RECORDS SUMMARY | 2023-09-07 11:31 | XMS_ITS | Encounter Summary ---
Author Organization [facility] Address [facility] [place] [address] Care Team Providers Care Dietetic Aide Name Role Phone Trinh Coates MD Primary Care Provider [phone] Encounter Details Date Type Department Care Team (Late st Contact Info) Description 10/03/2017 Orders Only Hematology [place] [phone] Josias Barnett MD [facility] DR HEMATOLOGY/[place] [address] Social History Tobacco Use Types Packs/Day Years [...] 01/22/2024 10:30 AM EST Appointment Mammography/[place] [phone] Ladi Mendosa MD [facility] DR HEMATOLOGY/[place] [address] 01/30/2024 11:30 AM EST Office Visit Dermatology at [facility] [address] [place] [address] Nilda Luis MD [facility] [address] [place] [address] 02/15/2024 9:30 AM EST Appointment [place] [phone] [place] [address] documented as of this encounter Visit Diagnoses Not on filedocumented in this encounter Care Teams Dietetic Aide Relationship Specialty Start Date End Date Trinh Coates MD [facility] [address] [address] PCP - General 01/11/10 documented as of this encounter
--- OUTSIDE RECORDS SUMMARY | 2023-09-07 11:31 | XMS_ITS | Encounter Summary ---
Author Organization [facility] Address [facility] [place] [address] Care Team Providers Care Gum Remover Name Role Phone Trinh Coates MD Primary Care Provider [phone] Reason for Visit * Treatment/Therapy Plan Authorization (Routine) - Closed Specialty Diagnoses / Procedures Referred By Diamante marin Referred To Contact Hematology and Oncology Diagnoses Malignant neoplasm of upper-outer quadrant of left breast in female, estrogen receptor positive Procedures TC PALONOSETRON HCL, 25MCG, INJECTION (ALOXI) TC DOXORUBICIN HCL, 10MG, INJECTION (ADRIAMYCIN) TC CYCLOPHOSPHAMIDE, 100MG (CYTOXAN) TC PEGFILGRASTIM, 6MG, INJECTION Gustavo Mota MD [facility] DR HEMATOLOGY/[place] [address] [address] Referral ID Status Reason Start Date Expiration Date Visits Re quested Visits Authorized [id number] Closed 07/02/2017 07/02/2018 12 12 Encounter Details Date Type Department Care Team (Latest Contact Info) Description 09/06/2017 9:30 AM EDT - 09/06/2017 9:47 AM EDT Hospital Encounter [place] [address] Malignant neoplasm of upper-outer quadrant [...] Progress Notes * Jimbo Freire RN - 09/06/2017 10:05 AM EDT Patient Name: Wendy Sandoval Patient Age: 52 y.o. Birthdate: 1965 Admit date: 09/06/2017 Attending Physician: No att. providers found Access visit. See MAR and/or doc flowsheet documented in this encounter Plan of Treatment Upcoming Encounters Date Type Department Care Team (Late st Contact Info) Description 01/22/2024 10:30 AM EST Appointment Mammography/[place] [address] Ladi Mendosa MD [facility] [place]ATOLOGY/[place] [address] 01/30/2024 11:30 AM EST Office Visit Dermatology at [facility] [address] [place] [phone] Nilda Luis MD [facility] [address] [place] [address] 02/15/2024 9:30 AM EST [place] [phone] [place] [address] documented as of this encounter Procedures Procedure Name Priority Date/Time Associated Diagnosis Comments DIFFERENTIAL, MANUAL STAT 09/06/2017 10:00 AM EDT HEMOGRAM STAT 09/06/2017 10:00 AM EDT Malignant neoplasm of upper-outer quadrant of left breast in female, estrogen receptor positive CBC (WITH DIFF) STAT 09/06/2017 10:00 AM EDT Malignant neoplasm of upper-outer quadrant of left breast in female, estrogen receptor positive COMPREHENSIVE METABOLIC PANEL (NON-FASTING) STAT 09/06/2017 10:00 AM EDT Malignant neoplasm of upper-outer quadrant of left breast in female, estrogen receptor positive documented in this encounter Results * (ABNORMAL) Differential, Manual (09/06/2017 10:00 AM EDT) Neutrophil % 78 % [facility] Lymphocyte % 8 % [facility] Monocyte % 3 % [facility] Eosinophil % 4 % [facility] Metamyelo % 7 % [facility] Neutrophil Abs 14.9(H) 1.5 - 6.3 x10(3)/mc L [facility] Neutr Abs (ANC) 14.91(H) 1.70 - 6.10 x10(3)/mc L [facility] Lymphocyte Abs 1.5 1.0 - 3.6 x10(3)/mc L [facility] Monocyte Abs 0.6 0.2 - 1.0 x10(3)/mc L [facility] Eosinophil Abs 0.8(H) 0.0 - 0.5 x10(3)/mc L [facility] Metamyelo Abs 1.3(H) 0.0 - 0.0 x10(3)/mc L [facility] Tot Diff Cell Ct 100 [facility] Plat Estimate Normal [facility] RBC Morphology Normal [facility] Giant Platelets Less than 1 /HPF [facility] Blood specimen (specimen) 09/06/2017 10:00 AM EDT 09/06/2017 10:24 AM EDT Narrative Resulting Agency Comment Spec In Lab Gustavo Mota MD HEMATOLOGY ORDERABLE S [facility] [place] [address] * (ABNORMAL) Hemogram (09/06/2017 10:00 AM EDT) WBC 19.1(H) 4.0 - 9.5 x10(3)/[facility] LABORAT[facility] RBC 3.70(L) 4.00 - 5.21 x10(6)/[facility]ATORY Hemoglobin 11.4(L) 11.7 - 15.5 gm/dL [facility] Hematocrit 33.0(L) 35.7 - 45.8 % [facility] MCV 89.2 82.6 - 94.4 [facility] LABORATORY MCH 30.8 27.1 - 32.0 pg [facility] MCHC 34.5 31.7 - 35.0 gm/dL [facility] Platelets 251 145 - 357 x10(3)/[facility] RDWSD 49.5(H) 37.0 - 46.0 [facility] LABORATORY RDWCV 15.9(H) 11.5 - 14.1 % [facility] MPV 9.4 7.6 - 12.9 [facility] nRBC % Auto 0.2 % [facility] nRBC Abs Auto 0.040(H) 0.000 - 0.000 x10(3)/[facility]ATORY Blood specimen (specimen) 09/06/2017 10:00 AM EDT 09/06/2017 10:24 AM EDT Narrative Resulting Agency Comment Spec In Lab Gustavo Mota MD HEMATOLOGY ORDERABLE S [facility] [place] [address] * (ABNORMAL) Comprehensive metabolic panel (non-fasting) (09/06/2017 10:00 AM EDT) Glucose Lvl 151 65 - 199 mg/dL [facility] Comment:Diabetes: >=200 mg/d L plus symptoms BUN 17 8 - 18 mg/dL [facility] Creatinine 1.03 0.70 - 1.20 mg/dL [facility] Sodium 142 135 - 145 mmol/L [facility] Potassium 3.1(L) 3.5 - 5.0 mmol/L [facility] Comment: Please note: ??Patients with WBC >100,000 may have falsely elevated Potassium levels. ??For accurate Potassium quantification in these patients send serum separator tube (gold top) for subsequent determinations. ??Contact the Clinical Chemistry Laboratory if there are any questions. Chloride 99 98 - 107 mmol/L [facility] CO2 26 22 - 31 mmol/L [facility] Anion Gap 17(H) 5 - 15 mmol/L [facility] Calcium 8.6 8.5 - 10.5 mg/dL [facility] Total Protein 6.9 6.1 - 8.0 gm/dL [facility] Albumin 3.9 3.2 - 5.2 gm/dL [facility] AST 12 0 - 30 unit/L [facility] ALT 16 0 - 30 unit/L [facility] Alk Phos 152(H) 40 - 104 unit/L [facility] Total Bilirubin <0.2(L) 0.2 - 1.3 mg/dL [facility] Estimated GFR 62 >=60 mL/min/1. 73 m?? [facility] Comment: The eGFR was calculated using the CKD-EPI equation. As with all creatinine based estimates of kidney function, eGFR values calculated with the CKD-EPI equation are not accurate in patients with acute kidney failure, extremes of body mass or the acutely ill. http://Bitex.la/Holvinkdep http://Bitex.la/Holvinkf eGFR 71 >=60 mL/min/1. 73 m?? [facility] Comment: The eGFR was calculated using the CKD-EPI equation. As with all creatinine based estimates of kidney function, eGFR values calculated with the CKD-EPI equation are not accurate in patients with acute kidney failure, extremes of body mass or the acutely ill. http://Bitex.la/Holvinkdep [email or web address]://Bitex.la/[facility] OKLAHOMA CITYnkf Blood specimen (specimen) 09/06/2017 10:00 AM EDT 09/06/2017 10:24 AM EDT Narrative Resulting Agency Comment Spec In Lab Gustavo Mota MD CHEMISTRY ORDERABLES [facility] [place] [address] documented in this encounter Visit Diagnoses Diagnosis Malignant neoplasm of upper-outer quadrant of left breast in female, estrogen receptor positive documented in this encounter Administered Medications Inactive Administered Medications - up to 3 most recent administrations Medication Order MAR Action Action Date Dose Rate Site heparin, porcine 100 unit/mL flush 500 Units 500 Units, Intravenous, ONCE PRN, Starting on Sosa 09/06/17 at 0946, Until Sun09/07/17 at 0442, Line Care, Refer to Intravenous (IV) Procedure: Accessing Implanted Vascular Access Devices (944) procedure and/or Intravenous (IV) Job Aid: Adult Flushing & Catheter Care (6538) job aid for additional information regarding guidelines and administration., Routine Given 09/06/2017 10:04 AM EDT 500 Units sodium chloride 0.9 % flush 5-20 mL 5-20 mL, Intravenous, EVERY 1 MIN PRN, Starting on Sosa 09/06/17 at 0946, Until 09/07/17 at 0442, Line Care, Flush pertains to all indwelling lines. Flush per protocol found in the job aid using the link provided on this medication record. Refer to Intravenous (IV) Job Aid: Adult Flushing & Catheter Care (5280) job aid for additional information regarding guidelines and administration., Routine Given 09/06/2017 10:04 AM EDT 20 mLs documented in this encounter Care Teams Gum Remover Relationship Specialty Start Date End Date Trinh Coates MD [address] [place] [address] PCP - General 01/11/10 documented as of this encounter
--- OUTSIDE RECORDS SUMMARY | 2023-09-07 11:31 | XMS_ITS | Encounter Summary ---
Author Organization [facility] Address [facility] [place] [address] Care Team Providers Care Restaurant Shift Supervisor Name Role Phone Trinh Coates MD Primary Care Provider [phone] Reason for Visit * Reason Comments Follow Up Surgery Encounter Details Date Type Department Care Team (Late st Contact Info) Description 09/13/2017 11:20 AM EDT Office [place] [address] Jolene Azevedo APRN [facility] [place] [address] Surgery follow-up Social History Tobacco Use Types [...] Sign Reading Time Taken Comments Blood Pressure 144/89 09/13/2017 11:53 AM EDT Pulse 81 09/13/2017 11:53 AM EDT Temperature 37.1 ??C (98.8 ??F) 09/13/2017 11:53 AM E DT Respiratory Rate 16 09/13/2017 11:53 AM EDT Oxygen Saturation - - Inhaled Oxygen Concentration - - Weight - - Height - - Body Mass Index - - documented in this encounter Patient Instructions * Patient Instructions* Jolene Azevedo APRN - 09/13/2017 11:20 AM EDT Follow up next Sunday. Stop Augmentin. Begin 10 day course of Keflex. Go to lab on your way home today - CBC. Leave drain dressing in place. Continue to monitor drain output and record. Contact our office with any worsening symptoms - increasing redness, thick drainage, fevers/chills. documented in this encounter Progress Notes * Jolene Azevedo APRN - 09/13/2017 11:20 AM EDT Images from the original note were not included. Plastic Surgery Follow Up Note Date of surgery: 04/26/17 Procedure(s): Bilateral breast reconstruction with attempted SALVADOR flaps, eventual tissue ultrasonic seaming machine operator placement with [place] [employer] 600 cc expanders placed bilaterally and filled with 450 cc of methyleneblue impregnated saline.) Complications: right parietal and visceral pleural tear, arterial flap failure bilaterally Date of surgery: 06/22/17 Procedure(s) left breast wound debridement, excision and closure. Debridement of umbilicus. Deflation of ultrasonic seaming machine operator volume, This leaves 450 cc in the left tissue ultrasonic seaming machine operator and 500 cc on the right side Chemotherapy: yes Radiation: TBD HPI: Pt reports that she generally feels a little better than last week. Her drain output has been approximately 90 ml per day. She has tenderness and redness to her left breast. She has been taking Augmentin. Examination: Most Recent Vitals: 09/13/17 1153 BP: 144/89 Pulse: 81 Resp: 16 Temp: 37.1 ??C (98.8 ??F) Patient is alert, conversant, comfortable, ambulating Tissue expanders in place. Left breast drain in place with serous fluid in bag. Left breast with mild erythema. Superior pole fullness. Impression: Wendy Sandoval is a 52 y.o. female who was seen today for follow- up after the above procedure. Please see the operative note for details. Somewhat improved from last week. Continued erythema and high drain output. I spoke with Dr. Gimenez and Destiny Ren when Wendy was in clinic today. They helped to formulate the following plan. Wendy was given Nulasta. This may have impacted her last WBC - 19. This infusion should no longerbe impacting her WBC. Plan: Follow up next Sunday. Stop Augmentin. Begin 10 day course of Keflex. Go to lab on your way home today - CBC. Leave drain dressing in place. Continue to monitor drain output and record. Contact our office with any worsening symptoms - increasing redness, thick drainage, fevers/chills. IAilyn have performed the documentation for this [...] 01/22/2024 10:30 AM EST Appointment Mammography/DXA at [place] [phone] Ladi Mendosa MD [facility] HEMATOLOGY/[place] [address] 01/30/2024 11:30 AM EST Office Visit Dermatology at [address] [phone] Nilda Luis MD [facility] DR [place] [address] 02/15/2024 9:30 AM [place] [address] [place] [address] documented as of this encounter Procedures Procedure Name Priority Date/Time Associated Diagnosis Comments HEMOGRAM Routine 09/13/2017 12:42 PM EDT Surgery follow-up DIFFERENTIAL, AUTOMATED Routine 09/13/2017 12:42 PM EDT Surgery follow-up CBC (WITH DIFF) Routine 09/13/2017 12:42 PM EDT Surgery follow-up documented in this encounter Results * (ABNORMAL) Differential, Automated (09/13/2017 12:42 PM EDT) Neutrophils % 71.7 % [facility] Neutr Abs (ANC) 12.25(H) 1.70 - 6.10 x10(3)/ L [facility] Lymphocytes % 7.5 % [facility] Lymphocytes Abs 1.3 0.9 - 3.2 x10(3)/[facility] Monocytes % 14.4 % [facility] Monocyte Abs 2.5(H) 0.3 - 0.9 x10(3)/[facility] Eosinophils % 3.2 % [facility] Eosinophils Abs 0.6(H) 0.0 - 0.4 x10(3)/[facility] Basophils % 1.7 % [facility] Basophils Abs 0.3(H) 0.0 - 0.1 x10(3)/[facility] Immature Gran % 1.50 % [facility] Comment: Immature granulocytes(IG's)percentage and absolute count will include metamyelocytes, myelocytes, and promyelocytes. Blood smears from CBCs yielding IG's will be scanned manually for concordance. If this scan disagrees with the automated IG or if promyelocytes are noted, a manual differential will be performed. Nova Gran Abs 0.25(H) 0.00 - 0.04 x10(3)/[facility] Blood specimen (specimen) 09/13/2017 12:42 PM EDT 09/13/2017 12:54 PM EDT Narrative Resulting Agency Comment Spec In Lab Jolene Azevedo [facility] ORDERABLE S [facility] [place] [address] * (ABNORMAL) Hemogram (09/13/2017 12:42 PM EDT) WBC 17.1(H) 4.0 - 9.5 x10(3)/[facility] RBC 3.53(L) 4.00 - 5.21 x10(6)/[facility] Hemoglobin 10.8(L) 11.7 - 15.5 gm/dL [facility] Hematocrit 32.6(L) 35.7 - 45.8 % [facility] MCV 92.4 82.6 - 94.4 [facility] MCH 30.6 27.1 - 32.0 pg [facility] MCHC 33.1 31.7 - 35.0 gm/dL [facility] Platelets 573(H) 145 - 357 x10(3)/[facility] RDWSD 54.9(H) 37.0 - 46.0 [facility] RDWCV 16.7(H) 11.5 - 14.1 % [facility] MPV 8.6 7.6 - 12.9 [facility] nRBC % Auto 0.0 % [facility] nRBC Abs Auto 0.000 0.000 - 0.000 x10(3)/[facility] Blood specimen (specimen) 09/13/2017 12:42 PM EDT 09/13/2017 12:54 PM EDT Narrative Resulting Agency Comment Spec In Lab Jolene Azevedo APRN HEMATOLOGY ORDERABLE S Performing Organization Address City/[facility]/ZIP Co de Phone Number [facility] [place] [address] documented in this encounter Visit Diagnoses Diagnosis Surgery follow-up Follow-up examination, following unspecified surgery documented in this encounter Care Teams Restaurant Shift Supervisor Relationship Specialty Start Date End Date Trinh Coates MD [address] [place] [address] PCP - General 01/11/10 documented as of this encounter
--- OUTSIDE RECORDS SUMMARY | 2023-09-07 11:31 | XMS_ITS | Encounter Summary ---
Author Organization [facility] Address [facility] [place] [address] Care Team Providers Care Environmental Safety Specialist Name Role Phone Trinh Coates MD Primary Care Provider [phone] Reason for Visit * Reason Comments Follow Up Surgery check breast drain Encounter Details Date Type Department Care Team (Late st Contact Info) Description 09/26/2017 10:00 AM EDT [place] [address] Jolene Azevedo APRN [facility] [place] [address] Surgery follow-up Social History Tobacco Use Types [...] * Patient Instructions* Jolene Azevedo APRN - 09/26/2017 10:00 AM EDT Follow up with Jolene on 10/04/17. Continue with antibiotics until drain removal. documented in this encounter Progress Notes * Jolene Azevedo APRN - 09/26/2017 10:00 AM EDT Plastic Surgery Follow Up Note Date of surgery: 04/26/17 Procedure(s): Bilateral breast reconstruction with attempted SALVADOR flaps, eventual tissue clay stain mixer placement with [place] Art[employer] 600 cc expanders placed bilaterally and filled with 450 cc of methyleneblue impregnated saline.) Complications: right parietal and visceral pleural tear, arterial flap failure bilaterally Date of surgery: 06/22/17 Procedure(s) left breast wound debridement, excision and closure. Debridement of umbilicus. Deflation of clay stain mixer volume, This leaves 450 cc in the left tissue clay stain mixer and 500 cc on the right side Chemotherapy: yes Radiation: yes Anticipated timeline: chemotherapy completion, when recovered will have expanders removed and permanent implants placed, approximately 3 weeks later will begin radiation. HPI: Pt reports that she is doing ok. Drain output down to 30-40 ml per day. Overall, she feels ok.She is here with her daughter for today's visit. Examination: Patient is alert, conversant, comfortable, ambulating Tissue expanders in place. Left breast drain in place with serous fluid in bag. Erythema completely resolved. Superior pole fullness. Impression: Wendy Sandoval is a 52 y.o. female who was seen today for follow- up after the above procedure. Please see the operative note for details. Erythema resolved. Drainage decreasing. Discussed leaving drain placed until next weeks visit. Plan: Follow up with Jolene on 10/04/17. Continue with antibiotics until drain removal. IAilyn have performed the documentation for this [...] 01/22/2024 10:30 AM EST Appointment Mammography/[place] [address] Ladi Mendosa MD [facility] DR [place]EMATOLOGY/[place] [address] 01/30/2024 11:30 AM EST Office Visit Dermatology at [facility] [address] [place] [phone] Nilda Luis MD [facility] [address] [place] [address] 02/15/2024 9:30 AM [place] [address] [place] [address] documented as of this encounter Visit Diagnoses Diagnosis Surgery follow-up Follow-up examination, following unspecified surgery documented in this encounter Care Teams Environmental Safety Specialist Relationship Specialty Start Date End Date Trinh Coates MD [facility] [place] [address] [address] PCP - General 01/11/10 documented as of this encounter
--- OUTSIDE RECORDS SUMMARY | 2023-09-07 11:32 | XMS_ITS | Encounter Summary ---
Author Organization [facility] [place] [address] Care Team Providers Care Agriculture Scientist Name Role Phone Trinh Coates MD Primary Care Provider [phone] Reason for Visit * Diagnostic Test (Routine) - Closed Specialty Diagnoses / Procedures Referred By Diamante marin Referred To Contact Radiology Diagnoses Malignant neoplasm of upper-outer quadrant of left breast in female, estrogen receptor positive Procedures IR Mediport Placement / Exchange Sally Ren APRN [facility] [place] [address] [place] [address] Referral ID Status Reason Start Date Expiration Date V isits Requested Visits Authorized [id number] Closed Specialty Service Requested 06/01/2017 06/01/2018 1 1 Encounter Details Date Type Department Care Team (Latest Contact Info) Description 07/03/2017 11:11 AM EDT - 07/03/2017 1:29 PM EDT Hospital [place] [address] Sally Ren STOCK PREPARER [facility] [place] [place] [address] Discharge Disposition: Home Social History [...] Sign Reading Time Taken Comments Blood Pressure 154/80 07/03/2017 1:25 PM EDT Pulse 92 07/03/2017 1:25 PM EDT Temperature 36.9 ??C (98.4 ??F) 07/03/2017 11:20 AM E DT Respiratory Rate 20 07/03/2017 1:25 PM EDT Oxygen Saturation 98% 07/03/2017 1:25 PM EDT Inhaled Oxygen Concentration - - Weight - - Height - - Body Mass Index - - documented in this encounter Discharge Instructions * Discharge Instructions* Agapito Schrader RN - 07/03/2017 2:08 PM EDT Images from the original note were not included. [facility] Department of Vascular and Interventional Radiology Discharge Instructions for your Chest Port You have received a ???Power Port?? , which provides access for infusions and blood draws. What makes this a ???Power Port?? is the unique ability to ???power inject?? contrast (intravenous dye) through the port when getting a CT scan, which produces superior images (pictures). Patients who don???t have these special ports need to have an IV started if they need dye injected for their CT scan. Your port is printed with the letters ???CT?? which can be detected by x- ray to identify it as a ???Power Port?? . You will be provided with an ID card stating the j2ee architect and type of port you have. Please carry this with you in a safe place. Bandage: There is a sterile dressing over the port site consisting of small gauze with a clear dressing (Tegaderm or [id number] ). This dressing should be left in place for 48 hours. If the clear dressing becomes loose you should place tape over the edges to secure it in place. Note: If you have steri-strips beneath your dressing, simply allow them to fall off. Do not peel them off. Pain: Apply ice bag to site (s) at 30 minute intervals (30 minutes on and 30 minutes off) for 24 hours?? . May use as needed for pain and/or bruising after 24 hours. Bathing: Do not take a shower until 48 hours after your port is placed; after this time you may shower with the dressing in place, then remove it and pat your skin dry. After 48 hours, we recommend that you cover the area with THE AQUA GUARD PROVIDED for 1 week while showering, facing away from theshower stream. You may use a bandaid to cover the site after the 48 hours are up if there is any drainage. No tub baths, whirlpools or swimming for one week following port placement. What to expect when your port is accessed: 1. You may feel tenderness the first few times it is accessed but generally this subsides over time. Ask your healthcare provider to use a local anesthetic on the site if discomfort is a problem for you. You may ask for a prescription for a topical cream (EMLA) from your clinician; you may apply athome prior to your appointments, to help numb the skin over your port. 2. The clinician should be wearing sterile gloves and a mask during the access procedure. Anyone inthe room with you should also have a mask on. 3. The skin over and 2 inches around the port should be cleaned with a disinfectant 4. Tell the clinician if you would like the skin numbed (lidocaine) before the access needle is placed. 5. Unless you are unable to take heparin (blood thinner), the port should be injected with a heparin solution before deaccess (at end of each treatment or blood draw). When to call your healthcare provider: ??? If you notice bleeding from the puncture site in your neck, or from the port incision on your chest, you should apply firm pressure over the site for 10-15 minutes, keeping the site covered. Callif you are still bleeding after 10-15 minutes. ??? If you develop pain, redness, drainage or swelling at or around the port site, or the puncture site in the neck ??? If you develop fever (elevation of more than 2 degrees or greater than 101F) and/or shaking chills When to call the Interventional Radiology Department: Please call with any questions or concerns. If it is during regular office hours, please call [phone]. If it is after regular office hours, or on weekends or holidays, please call [phone] and ask to speak to the Associate Account Manager customer contact representative for Interventional Radiology. XXX You have received medication during your procedure [...] DR tablet 1 CAP daily 03/27/2014 024 prochlorperazine (COMPAZINE) 10 mg Tablet Take 1 [...] hours as needed for Pain. 11/03/2015 07/25/2022 KLOR-CON M20 20 mEq extended release tablet 2 times daily. 10/31/2012 08/03/2017 documented as of this encounter Progress Notes * Ira Noyola RN - 07/03/2017 1:29 PM EDT Interventional and Vascular Radiology Post-Procedure Call Name: Wendy Sandoval Age: 52 y.o. Sex; Female Date of : 1965 (home) Telephone Information: PCP Trinh Coates MD [phone] Date/Time of call: July 04, 2017/8:30 AM Procedure: mediport placement Procedural Provider: Contact with patient or if not, with whom? Message left on answering machine? yes Provider notified via phone or email if unable to contact pt: (yes/no) Are you having pain related to your procedure now? Lung bx: Any shortness of breath, coughing up blood or chest pain? Liver bx: Any pain a biopsy site: Are you having any swelling or bleeding from the site? Are there any improvement in your symptoms? Are you having any other problems related to your procedure? Comments: Did you understand the discharge instructions given and do you have any questions? Comments: Do you have any comments about your Nurse or Provider or the care you received? Nurse Comments: * Cory Valencia RN - 06/28/2017 4:13 PM EDT [facility] NUR[facility] DATABASE Name: WENDY SANDOVAL Date of : 1965 AGE 52 y.o. Address: [address] [place] [id number] (home) [phone] (work) Mobile: Telephone Information: Referring Provider: Sally Ren REASON FOR VISIT: Date/time of procedure: Pertinent info from Pre-call (if any): Labs ordered: Med's stopped: Question Answer Comment Where will study be performed? [facility] Is the patient on anticoagulant / anitplatelet therapy ? No Reason for exam and clinical history: breast cancer, chemotherapy administration Exam/Procedure requested: port placement Is the patient ? No Allergies Allergen Reactions ??? Pcn [Penicillins] ??? Zoloft [Sertraline] PSORIASIS FLARE Pertinent PMH: Patient Active Problem List Diagnosis Code ??? Hypertension I10 ??? Depression F32.9 ??? Obstructive sleep apnea (adult) (pediatric) G47.33 ??? OA (osteoarthritis) M19.90 ??? Overweight(278.02) E66.3 ??? Hyperparathyroidism E21.3 ??? Malignant neoplasm of upper-outer quadrant of left breast in female, estrogen receptor qwfqsvvaP67.412, Z17.0 ??? S/P breast reconstruction Z98.82 ??? Surgery follow-up Z09 ??? Abdominal wound dehiscence T81.30XA Pertinent PSH: Past Surgical History: Procedure Laterality Date ??? BREAST BIOPSY Right 11/01 ??? SECTION x 2 ??? HAND SURGERY Right ??? PRG EMG, LARYNX N/A 11/02/2015 FACIAL NERVE MONITORING, SETUP LARYNGEAL performed by Valentina Lucas MD at [facility] MAIN OR ??? PRO BREAST RECONSTRUC W FREE FLAP Bilateral 04/26/2017 @BREAST RECONSTRUCTION W/ FREE FLAP, SUSAN (WRVU 42.58) [facility] ??? PRO BREAST RECONSTRUC W TISS EXPANDR Bilateral 04/26/2017 BREAST RECONSTRUCTION, IMMEDIATE OR DELAYED, W/ TISSUE PHOTOFLASH POWDER MIXER, INCLUDING SUBSEQUENT EXPANSION (WRVU 18.5) performed by Andre Gimenez MD at [facility] OR ? ? PRO DEBRIDEMENT SUBCUTANEOUS TISSUE 20 SQCM/< 06/22/2017 DEBRIDEMENT SKIN AND SUBCU, BREAST (WRVU 1.01) performed by Andre Gimenez MD at [facility] OR ??? PRO EXPLORE PARATHYROID GLANDS N/A 11/02/2015 PARATHYROIDECTOMY OR EXPLORATION OF PARATHYROID(S) performed by Valentina Lucas MD at [facility] OR ? ? PRO FULL THICK GRFT TRUNK <20 SQCM Bilateral 04/26/2017 FTSG, FREE, DIR CLOSE DONOR SITE, TRUNK, 20 SQ CM OR LESS (WRVU 9.15) performed by Andre Gimenez MD at [facility] OR ??? PRO MASTECTOMY, SIMPLE, COMPLETE Bilateral 04/26/2017 MASTECTOMY, SIMPLE, COMPLETE-SUSAN (WRVU 15.85) performed by Jolie Menendez MD at [facility] OR ??? PRO PARTIAL REMOVAL OF RIB Bilateral 04/26/2017 EXCISION OF RIB, PARTIAL (WRVU 7.26) performed by Andre Gimenez MD at [facility] OR ??? PRO REMOVE ARMPITS LYMPH NODES COMPLT Left 04/26/2017 LYMPHADENECTOMY, AXILLARY, COMPLETE (WRVU 13.87) performed by Jolie Menendez MD at [facility] OR ??? PRO REVISE BREAST RECONSTRUCTION Left 06/22/2017 REVISION OF RECONSTRUCTED BREAST (WRVU 10.41) performed by Andre Gimenez MD at [facility] OR ??? PRO THYMECTOMY, TRANSCERVICAL N/A 11/02/2015 THYMECTOMY, TRANSCERVICAL APPROACH performed by Valentina Lucas MD at [facility] OR ??? SHOULDER SURGERY Left [...] R drain removed. Fentanyl 50 mcg IV? [id number] Left breast aspiration/ 30 ml Fentanyl 100 mg IV 07/03/[address] power-injectable port placement Clindamycin 900 mg IV, versed 3 mg IV, fentanyl 150 mcg IV ? Laboratory Results: Lab Results Component Value Date CREATININE 0.87 05/10/2017 Lab Results Component Value Date K 3.4 (L) 05/10/2017 Lab Results Component Value Date PLATELET 421 (H) 06/11/2017 Medications: Prior to Admission medications Medication Sig Start Date End Date Taking? Authorizing Provider cephalexin (KEFLEX) 500 mg Tablet Take 1 tablet by mouth 4 times daily for 7 days. 06/22/17 06/29/17 Khris Castro MD cholecalciferol, Vitamin D3, (VITAMIN D-3) 5,000 unit Tablet Take by mouth. PROVIDER, HISTORICAL LORazepam (ATIVAN) 0.5 mg Tablet Take 1 tablet by mouth every 6 hours as needed for Anxiety. 06/01/17 Sally Ren APRN prochlorperazine (COMPAZINE) 10 mg Tablet Take 1 tablet by mouth every 6 hours as needed for Nausea. 06/01/17 Sally Ren APRN ondansetron (ZOFRAN) 4 mg Tablet Take 1 tablet by mouth every 8 hours as needed for Nausea. 05/25/17 Jolene Azevedo APRN silver sulfADIAZINE (SILVADENE) 1 % Cream Apply topically 2 times daily. Patient not taking: Reported on 06/26/2017 05/15/17 Alma Castillo PA Lactobacillus (BACID) 0.5 mg (100 million cell) Tablet Take 1 tablet by mouth daily. 05/01/17 Alma Castillo PA valsartan-hydrochlorothiazide (DIOVAN-HCT) 160-12.5 [...] 40 mg capsule daily. 10/31/12 PROVIDER, HISTORICAL KLOR-CON M20 20 mEq extended release tablet 2 times daily. 10/31/12 PROVIDER, HISTORICAL documented in this encounter H&P Notes * Diana Azevedo APRN - 07/02/2017 4:12 PM EDT Images from the original note were not included. Patient Name: Wendy Sandoval Patient Age: 52 y.o. Birthdate: 1965 Admit date: (Not on file) Attending Physician: Sally Ren APRN INTERVENTIONAL RADIOLOGY ADDENDUM TO NOTE OF DR. JAIMES: Plastic Surgery called this morning with request to attempt aspiration vs drain placement into recurrent fluid around LEFT breast. We will await Mammography today to evaluate fluid cavity. GEN: NAD CV: RRR No R/G/M PULM: CTA bilaterally ASA 3 MALLMAPATI 3 FOCUSED H&P and PRE-PROCEDURE NOTE: PCP: Trinh Coates MD Referring Provider: Sally Ren Planned Procedure: Mediport Placement Procedure Indication: Chemotherapy Presenting Diagnosis/ Complaint: Wendy Sandoval is a 52 y.o. female with LEFT breast cancer, s/pbilateral mastectomy with tissue expanders (04/26/17). ??Patient has had multiple drains bilaterally with IR for seromas and infections. ?Last with IR 06/26/17. Request is for Mediport placement for c hemotherapy administration. Past Medical/Surgical History: Patient Active Problem List Diagnosis Code ??? Hypertension I10 ??? Depression F32.9 ??? Obstructive sleep apnea (adult) (pediatric) G47.33 ??? OA (osteoarthritis) M19.90 ??? Overweight(278.02) E66.3 ??? Hyperparathyroidism E21.3 ??? Malignant neoplasm of upper-outer quadrant of left breast in female, estrogen receptor vrbegmgkI50.412, Z17.0 ??? S/P breast reconstruction Z98.82 ??? Surgery follow-up Z09 ??? Abdominal wound dehiscence T81.30XA Past Medical History: Diagnosis Date ??? Fibrocystic [...] by Valentina Lucas MD at [facility] OR ??? PRO BREAST RECONSTRUC W FREE FLAP Bilateral 04/26/2017 @BREAST RECONSTRUCTION W/ FREE FLAP, SUSAN (WRVU 42.58) [facility] ??? PRO BREAST RECONSTRUC W TISS EXPANDR Bilateral 04/26/2017 BREAST RECONSTRUCTION, IMMEDIATE OR DELAYED, W/ TISSUE PHOTOFLASH POWDER MIXER, INCLUDING SUBSEQUENT EXPANSION (WRVU 18.5) performed by Andre Gimenez MD at [facility] OR ? ? PRO DEBRIDEMENT SUBCUTANEOUS TISSUE 20 SQCM/< 06/22/2017 DEBRIDEMENT SKIN AND SUBCU, BREAST (WRVU 1.01) performed by Andre Gimenez MD at [facility] OR ??? PRO EXPLORE PARATHYROID GLANDS N/A 11/02/2015 PARATHYROIDECTOMY OR EXPLORATION OF PARATHYROID(S) performed by Valentina Lucas MD at [facility] OR ? ? PRO FULL THICK GRFT TRUNK <20 SQCM Bilateral 04/26/2017 FTSG, FREE, DIR CLOSE DONOR SITE, TRUNK, 20 SQ CM OR LESS (WRVU 9.15) performed by Andre Gimenez MD at [facility] OR ??? PRO MASTECTOMY, SIMPLE, COMPLETE Bilateral 04/26/2017 MASTECTOMY, SIMPLE, COMPLETE-SUSAN (WRVU 15.85) performed by Jolie Menendez MD at [facility] OR ??? PRO PARTIAL REMOVAL OF RIB Bilateral 04/26/2017 EXCISION OF RIB, PARTIAL (WRVU 7.26) performed by Andre Gimenez MD at [facility] OR ??? PRO REMOVE ARMPITS LYMPH NODES COMPLT Left 04/26/2017 LYMPHADENECTOMY, AXILLARY, COMPLETE (WRVU 13.87) performed by Jolie Menendez MD at [facility] OR ??? PRO REVISE BREAST RECONSTRUCTION Left 06/22/2017 REVISION OF RECONSTRUCTED BREAST (WRVU 10.41) performed by Andre Gimenez MD at [facility] OR ??? PRO THYMECTOMY, TRANSCERVICAL N/A 11/02/2015 THYMECTOMY, TRANSCERVICAL APPROACH performed by Valentina Lucas MD at [facility] OR ??? SHOULDER SURGERY Left ??? UMBILICAL HERNIA REPAIR Medications: Current Outpatient Prescriptions on File Prior to Encounter Medication Sig Dispense Refill ??? cholecalciferol, Vitamin D3, (VITAMIN D-3) 5,000 unit Tablet Take by mouth. ??? LORazepam (ATIVAN) 0.5 mg Tablet Take 1 tablet by mouth every 6 hours as needed for Anxiety. 30tablet 0 ??? prochlorperazine (COMPAZINE) 10 mg Tablet Take 1 tablet by mouth every 6 hours as needed for Nausea. 30 tablet 0 ??? ondansetron (ZOFRAN) 4 mg Tablet Take 1 tablet by mouth every 8 hours as needed for Nausea. 20 tablet 0 ??? silver sulfADIAZINE (SILVADENE) 1 % Cream Apply topically 2 times daily. (Patient not taking: Reported on 06/26/2017) 50 g 0 ??? Lactobacillus (BACID) 0.5 mg (100 [...] fluoxetine (PROZAC) 40 mg capsule daily. ??? KLOR-CON M20 20 mEq extended release tablet 2 times daily. No current facility-administered medications on file prior to encounter. Allergies: Pcn [penicillins] and Zoloft [sertraline] Social History and Habits: Social [...] Labs: Lab Results Component Value Date WBC 11.9 (H) 06/11/2017 HCT 37.9 06/11/2017 PLATELET 421 (H) 06/11/2017 BUN 20 (H) 05/10/2017 CREATININE 0.87 05/10/2017 ALKPHOS 79 03/29/2017 AST 12 03/29/2017 ALBUMIN 3.9 03/29/2017 BILITOT 0.5 03/29/2017 ALT 21 03/29/2017 PROT 6.6 03/29/2017 Imaging: Physical Exam: Pending (to be performed in angio the day of procedure) ASA: Pending (to be assessed in angio the day of procedure) Mallampati Class: Pending (to be assessed in angio the day of procedure) Assessment: 52 y.o. female with LEFT breast cancer, s/p bilateral mastectomy with tissue expanders (04/26/17). ??Patient has had multiple drains bilaterally with IR for seromas and infections. ?Lastwith IR 06/26/17. Request is for Mediport placement for chemotherapy administration. Plan: Plan Planned procedure: Mediport placement Labs to be performed day of procedure: PLT, Coags Sedation: moderate (conscious sedation) Prophylactic antibiotic : Other (see comments) (Clinda 900 mg IV) Additional medications for procedure: Lidocaine Planned access site: Rt chest Position: Supine Consent: Pending Additional medications for procedure: Lidocaine 07/02/2017 documented in this encounter Nursing Notes * Cory Valencia RN - 07/03/2017 12:42 PM EDT To procedure room 2 via stretcher for port placement. Onto table supine. All monitors, O2, safety strap in place. Versed and fentanyl per protocol. documented in this encounter Plan of Treatment Upcoming Encounters Date Type Department Care Team (Late st Contact Info) Description 01/22/2024 10:30 AM EST Appointment Mammography/[place] [phone] Ladi Mendosa MD [facility] HEMATOLOGY/[place] [address] 01/30/2024 11:30 AM EST Office Visit Dermatology at [address] [place] [phone] Nilda Luis MD [facility] DR [place] [address] 02/15/2024 9:30 AM [place] [phone] [place] [address] documented as of this encounter Procedures Procedure Name Priority Date/Time Associated Diagnosis Comments IR MEDIPORT PLACEMENT Routine 07/03/2017 1:49 PM EDT Malignant neoplasm of upper-outer quadrant of left breast in female, estrogen receptor positive documented in this encounter Visit Diagnoses Not on filedocumented in this encounter Administered Medications Inactive Administered Medications - up to 3 most recent administrations Medication Order MAR Action Action Date Dose Rate Site clindamycin (CLEOCIN) 900mg in dextrose 5% 50mL 900 mg, Intravenous, ONCE, 1 dose, On Sun07/03/17 at 1145, Administer over 30 Minutes, Give over 30-60 minutes. Do not exceed 30mg/minute. Redose every 6 hours if CrCl is greater than 20. Redose every 6 hours if CrCl is less than 20., Day of Surgery (Day of Procedure), Indication for (Active or Suspected): Prophylaxis New Bag 07/03/2017 12:15 PM EDT 900 mg 100 mL/hr fentaNYL 50 mcg/mL multi-dose injection 25-50 mcg, Intravenous, EVERY 5 MIN PRN, Starting on Sun07/03/17 at 1120, Until Tu07/03/17 at 1339, Pain, per unit protocol, - Start dose [...] and verbal order., Angio/IR (Intra-Procedure), Routine Given 07/03/2017 1:01 PM EDT 50 mcg Given 07/03/2017 12:50 PM EDT 50 mcg Given 07/03/2017 12:40 PM EDT 50 mcg lidocaine (XYLOCAINE) 10 mg/mL (1 %) injection 10 mg 10 mg, Subcutaneous, ONCE, 1 dose, On Sun07/03/17 at 1145, For use in Interventional Radiology (IR) only for procedure with direct provider supervision and verbal order., Angio/IR (Intra-Procedure), Routine Given 07/03/2017 1:02 PM EDT 10 mg lidocaine-EPINEPHrine 1 %-1:100,000 injection 50 mL 50 mL, Intradermal, ONCE, 1 dose, On Sun07/03/17 at 1230, For use in Interventional Radiology (IR) only for Radiofrequency Ablation of Saphenous Vein procedure with direct provider supervision and verbal order., Angio/IR (Intra-Procedure), Routine Given 07/03/2017 1:08 PM E DT 30 mLs lidocaine-EPINEPHrine 1 %-1:100,000 injection 1 dose, Starting on Sun07/03/17 at 1212, Until Sun07/03/17 at 1308, CORY VALENCIA: janice override midazolam (PF) (VERSED) 1 mg/mL multi-dose injection 0.5-1 mg 0.5-1 mg, Intravenous, EVERY 3 MIN PRN, Starting on 07/03/17 at 1120, Until 07/03/17 at 1339, Sleep, - Start dose; 1 mg (Reduce [...] and verbal order., Angio/IR (Intra-Procedure), Routine Given 07/03/2017 1:01 PM EDT 1 mg Given 07/03/2017 12:50 PM EDT 1 mg Given 07/03/2017 12:40 PM EDT 1 mg documented in this encounter Care Teams Agriculture Scientist Relationship Specialty Start Date End Date Trinh Cotaes MD [facility] [address] [place] [address] PCP - General 01/11/10 documented as of this encounter
--- OUTSIDE RECORDS SUMMARY | 2023-09-07 11:32 | XMS_ITS | Encounter Summary ---
Author Organization [facility] [place] [address] Care Team Providers Care Activity Therapy Specialist Name Role Phone Trihn Coates MD Primary Care Provider [phone] Reason for Referral * Diagnostic Test (Routine) - Closed Specialty Diagnoses / Procedures Referred By Contac t Referred To Contact Radiology Diagnoses Fluid collection at surgical site, initial encounter Procedures IR All Drainage Procedures Jarod Damico MD [facility] [place] [address] [place] [address] Referral ID Status Reason Start Date Expiration Date V isits Requested Visits Authorized [id number] Closed Specialty Service Requested 06/05/2017 06/05/2018 1 1 Reason for Visit * Diagnostic Test (Routine) - Closed Specialty Diagnoses / Procedures Referred By Contac t Referred To Contact Radiology Diagnoses Fluid collection at surgical site, initial encounter Procedures IR All Drainage Procedures Jarod Damico MD [facility] [place] [address] [place] [address] Referral ID Status Reason Start Date Expiration Date V isits Requested Visits Authorized [id number] Closed Specialty Service Requested 06/05/2017 06/05/2018 1 1 Encounter Details Date Type Department Care Team (Latest Contact Info) Description 06/06/2017 10:43 AM EDT - 06/06/2017 11:59 PM EDT Hospital Encounter Radiology at [facility] [place] [address] Jarod Damico MD [facility] [place] [address] Fluid collection at surgical site, initial encounter Discharge Disposition: Home Social History Tobacco Use Types Packs/Day Years Used Date Smoking Tobacco: Former Smokeless Tobacco: Never Alcohol Use Standard Drinks/Week Comments Yes 0 (1 standard drink = 0.6 oz pur e alcohol) socially Sex and Gender Information Value Date Recorded [...] daily. 07/26/2015 10/17/2018 clobetasol (TEMOVATE) 0.05 % CreamIndications:Psoria sis Apply to affected areas on knees, elbows and hands twice daily for two week cycles as needed. 60 g 3 04/16/2014 10/20/2019 ferrous sulfate (FeroSul) 325 mg (65 mg iron) tablet 1 tablet. 01/26/2014 05/15/2023 omeprazole (PriLOSEC OTC) [address] tablet 1 CAP daily 03/27/2014 024 linezolid (ZYVOX) 600 mg Tablet Take 1 tablet by mouth 2 times daily for 7 days. 14 tablet 06/07/2017 06/14/2017 sulfamethoxazole-trimet hoprim (BACTRIM DS) 800-160 mg Tablet Take 1 tablet by mouth 2 times daily for 10 days. 20 tablet 06/06/2017 06/16/2017 cephalexin (KEFLEX) 500 mg Capsule 0 06/02/2017 06/11/2017 prochlorperazine (COMPAZINE) 10 mg Tablet Take 1 tablet by mouth every 6 hours as needed for Nausea. 30 tablet 06/01/2017 11/30/2017 ondansetron (ZOFRAN) 4 mg Tablet Take 1 tablet by mouth every 8 hours as needed for Nausea. 20 tablet 05/25/2017 11/30/2017 silver sulfADIAZINE (SILVADENE) 1 % Cream Apply topically 2 times daily. 50 g 05/15/2017 07/03/2017 Lactobacillus (BACID) 0.5 mg (100 million cell) Tablet Take 1 tablet by mouth daily. 30 tablet 05/01/2017 12/12/2017 valsartan-hydrochloroth iazide (DIOVAN-HCT) 160-12.5 mg Tablet Take 1 tablet by mouth daily. 02/20/2017 10/10/2017 levothyroxine (SYNTHROID) 112 mcg Tablet Take 1 tablet by mouth daily. 0 01/25/2017 06/20/2017 acetaminophen (TYLENOL) 325 mg Tablet Take 2 tablets by mouth every 4 hours as needed for Pain. 11/03/2015 07/25/2022 KLOR-CON M20 20 mEq extended release tablet 2 times daily. 10/31/2012 documented as of this encounter Plan of Treatment Upcoming Encounters Date Type Department Care Team (Late st Contact Info) Description 01/22/2024 10:30 AM EST Appointment Mammography/[place] [address] Ladi Mendosa MD [facility] HEMATOLOGY/[place] [address] 01/30/2024 11:30 AM EST Office Visit Dermatology at [facility] [address] [place] [phone] Nilda Luis MD [facility] DR LIDIA [place] [address] 02/15/2024 9:30 AM [place] [phone] [place] [address] documented as of this encounter Procedures Procedure Name Priority Date/Time Associated Diagnosis Comments IR ALL DRAINAGE PROCEDURES Routine 06/06/2017 12:06 PM EDT Fluid collection at surgical site, initial encounter documented in this encounter Results * IR All Drainage Procedures (06/06/2017 12:06 PM EDT) Anatomical Region Laterality Modality X-Ray Angiograph y Narrative 06/06/2017 1:23 PM EDT IR Procedure Note Procedure: ?1. Right breast drain removal ?2. Left breast drain injection ?3. US evaluation of the left breast History/indication: 51 y.o. female with history of left breast cancer s/p bilateral mastectomy, with tissue otolaryngology rep placement. Seen in Plastic Surgery clinic yesterday c/o new pain and swelling in her LEFT breast. Output of existing drain now cloudy. The patient continues on abx. Patient on Keflex. ??? That the surgical drain is incompletely draining the fluid, and/or there may be a new collection. ? Discussed with Plastics who requests: -US LEFT breast and place drain if collection observed. -RIGHT drain removal if appropriate (patient reports it's 5-10cc per day) -Patient is to go to Plastic Surgery clinic immediately following procedure for evaluation -Given concern of potential infection, we have decided to hold placing chest port today, and will reschedule once infections are cleared. ?? Technique: The existing drainage catheters and surrounding skin were prepped and draped in a sterile fashion. ??The patient received split doses of intravenous fentanyl from the IR nurse while pulse, pressure, end tidal CO2 parameters and oxygen saturation were continuously monitored. Right breast drain removal: Over an Amplatz wire, the locking loop was released and the tube removed. The site was observed for signs of bleeding; there was none. The wire was then removed and a sterile dressing applied. The patient tolerated the procedure well. Left breast US: Evaluation of the left breast demonstrated the tissue otolaryngology rep with several folds but no discreet adjacent fluid collection. Images and exam were reviewed with Dr. Rodriguez (Breast Division) Left breast drain injection showing : The drain is patent; a portion of the contrast collects around the drain laterally; contrast also opacifies a curvilinear space surrounding the otolaryngology rep. Complications: ?None immediate; ??EBL=0 Medications: ??1% lidocaine (<10 cc); fentanyl 50 mcg Contrast: ??5 cc non-ionic/omniapque Fluoroscopy time: 1.6 minutes Findings: 1. Right breast drain removal. 2. Left breast US with no fluid collection adjacent to the otolaryngology rep observed 3. Left breast drain injection showing contrast collecting around the drain laterally as well as opacifying a curvilinear space around the otolaryngology rep. Attending: ?Rashaad Paulson MD ? I was present during the intraservice time as documented by the IR Nurse. Jarod Damico MD IM IR ORDERABLES documented in this encounter Visit Diagnoses Diagnosis Fluid collection at surgical site, initial encounter documented in this encounter Care Teams Activity Therapy Specialist Relationship Specialty Start Date End Date Trinh Coates MD [facility] [address] [place] [address] PCP - General 01/11/10 documented as of this encounter
--- OUTSIDE RECORDS SUMMARY | 2023-09-07 11:32 | XMS_ITS | Encounter Summary ---
Author Organization [facility] Address [facility] [place] [address] Care Team Providers Care Scrap Burner Name Role Phone Trinh Coates MD Primary Care Provider [phone] Reason for Visit * Reason Comments Follow-up Encounter Details Date Type Department Care Team (Late st Contact Info) Description 07/05/2017 10:00 AM EDT Office Visit [place] [address] Gustavo Mota MD [facility] HEMATOLOGY/[place]O [place] [address] aSlly Ren APRN [facility] [place] [address] Malignant neoplasm of upper-outer quadrant of left [...] Sign Reading Time Taken Comments Blood Pressure 161/84 07/05/2017 9:58 AM EDT Pulse 73 07/05/2017 9:58 AM EDT Temperature 36.9 ??C (98.4 ??F) 07/05/2017 9:58 AM ED T Respiratory Rate 18 07/05/2017 9:58 AM EDT Oxygen Saturation 99% 07/05/2017 9:58 AM EDT Inhaled Oxygen Concentration - - Weight 80.6 kg (177 lb 9.6 oz) 07/05/2017 9:58 A M EDT Height 157.7 cm (5' 2.09) 07/05/2017 9:58 AM ED T Body Mass Index 32.39 07/05/2017 9:58 AM EDT documented in this encounter Progress Notes * Sally Ren, PIPE TESTING TECHNICIAN - 07/05/2017 10:00 AM EDT Subjective: Patient ID: Wendy Sandoval is a 52 y.o. female here to start adjuvant chemotherapy today. ROSEMARY Nguyen is a 51-year-old woman with a recent diagnosis of node positive breast cancer. She presented due to screening mammography, 03/08, this revealing a suspicious 2 cm nodule in the upper outer quadrant left breast. Right breast was unremarkable. Core biopsy demonstrated invasive cancer, ER/MN positive, HER- 2/pat negative. Breast MRI demonstrated additional findings as per the full report. She was seen in surgery and has undergone now bilateral MRM and D IEP reconstruction, as noted below zoltan have a significant family history of breast cancer. She did have a complication in apparently a nicking of her pleura during her procedure which was operatively repaired. She additionally has dev eloped complications with delayed wound healing and possibly postop infection of her abdominal wound she had a wound VAC placed last week. She has remained afebrile and is on antibiotics as well. Review of Systems Constitutional: Negative for chills and fever. HENT: Negative. Eyes: Positive for itching. Respiratory: Negative for cough and shortness of breath. Gastrointestinal: Negative. Endocrine: Negative. Genitourinary: Negative. Musculoskeletal: Negative. Skin: Left breast leaking yellow fluid. Allergic/Immunologic: Negative. Neurological: Negative. Hematological: Negative. Psychiatric/Behavioral: Negative. Objective: Physical Exam Constitutional: She is oriented to person, place, and time. She appears well- developed and well-nourished. No distress. HENT: Mouth/Throat: Oropharynx is clear and moist. No oropharyngeal exudate. Eyes: Conjunctivae and EOM are normal. Pupils are equal, round, and reactive to light. Right eye exhibits no discharge. Left eye exhibits no discharge. Neck: Neck supple. Cardiovascular: Normal rate, regular rhythm and normal heart sounds. No murmur heard. Pulmonary/Chest: Effort normal and breath sounds normal. She has no wheezes. Left breast with gauze dressing, soaked with serous fluid. No axillary adenopathy bilaterally. Abdominal: Soft. Bowel sounds are normal. She exhibits no distension. Umbilicus with dressing, healing well. Musculoskeletal: Normal range of motion. She exhibits no edema or tenderness. Lymphadenopathy: She has no cervical adenopathy. Neurological: She is alert and oriented to person, place, and time. No cranial nerve deficit. Skin: Skin is warm and dry. She is not diaphoretic. Psychiatric: She has a normal mood and affect. Her behavior is normal. Assessment and Plan: Wendy returns to clinic, she was supposed to start chemotherapy today, however she has had some complications with her left breast. She was taken to the OR on 06/22 for debridement of left breast wound. She has subsequently developed leakage from the incision. Fluid collection has grown E-coli. Shehas been on Keflex per her report, since April. Plastics has agreed to see her today in follow up to evaluate her drainage. In light of her growing e-coli from breast fluid while on keflex, I recommend antibiotic change. I will defer to Dr. Mota and the plastics team. I took down the port dressing down and this site is without signs of infection. I will arrange follow up for her in one week to see Dr. Mota. All questions answered. Sally Ren APRN documented in this encounter Plan of Treatment Upcoming Encounters Date Type Department Care Team (Late st Contact Info) Description 01/22/2024 10:30 AM EST Appointment Mammography/[place] [address] Ladi Mendosa MD [facility] DR HEMATOLOGY/[place] [address] 01/30/2024 11:30 AM EST Office Visit Dermatology at [facility] [address] [place] [address] Nilda Luis MD [facility] DR LIDIA AGUILAR[place] [address] 02/15/2024 9:30 AM [place] [phone] [place] [address] documented as of this encounter Visit Diagnoses Diagnosis Malignant neoplasm of upper-outer quadrant of left breast in female, estrogen receptor positive documented in this encounter Care Teams Scrap Burner Relationship Specialty Start Date End Date Trinh Coates MD [facility] [address] [facility] [address] [place] [address] PCP - General 01/11/10 documented as of this encounter
--- OUTSIDE RECORDS SUMMARY | 2023-09-07 11:32 | XMS_ITS | Encounter Summary ---
Author Organization [facility] Address [facility] [place] [address] Care Team Providers Care Hairspring Vibrator Name Role Phone Trinh Coates MD Primary Care Provider [phone] Reason for Visit * Treatment/Therapy Plan Authorization (Routine) - Closed Specialty Diagnoses / Procedures Referred By Diamante marin Referred To Contact Hematology and Oncology Diagnoses Malignant neoplasm of upper-outer quadrant of left breast in female, estrogen receptor positive Procedures TC PALONOSETRON HCL, 25MCG, INJECTION (ALOXI) TC DOXORUBICIN HCL, 10MG, INJECTION (ADRIAMYCIN) TC CYCLOPHOSPHAMIDE, 100MG (CYTOXAN) TC PEGFILGRASTIM, 6MG, INJECTION Gustavo Mota MD [facility] DR HEMATOLOGY/[place] [address] [address] Referral ID Status Reason Start Date Expiration Date Visits Re quested Visits Authorized [id number] Closed 07/02/2017 07/02/2018 12 12 Encounter Details Date Type Department Care Team (Latest Contact Info) Description 07/20/2017 11:19 AM EDT Hospital Encounter Hematology [place] [address] Malignant neoplasm of upper-outer quadrant [...] Progress Notes * Cornelia Rosales RN - 07/20/2017 6:32 PM EDT Patient Name: Wendy Sandoval Patient Age: 52 y.o. Birthdate: 1965 Admit date: 07/20/2017 Attending Physician: Donna att. providers found Patient completed cytoxan without issue. ONPRO applied and instructions given. Patient states understanding. Pt ambulated out at 1816, driving home. documented in this encounter Plan of Treatment Upcoming Encounters Date Type Department Care Team (Late st Contact Info) Description 01/22/2024 10:30 AM EST Appointment Mammography/[place] [phone] Ladi Mendosa MD [facility] HEMATOLOGY/[place] [address] 01/30/2024 11:30 AM EST Office Visit Dermatology at [address] [address] Nilda Luis MD [facility] DR LIDIA [place] [address] 02/15/2024 9:30 AM EST [place] [phone] [place] [address] documented as of this encounter Visit Diagnoses [...] Recorded weight), Intravenous, ONCE, 1 dose, On Sun07/20/17 at 1615, Administer over 30 Minutes, Warning Vesicant/Irritant Medication New Bag 07/20/2017 5:11 PM EDT 1,098 mg 609.8 mL/hr dexamethasone (DECADRON) injection 10 mg 10 mg, Intravenous, ONCE, 1 dose, On Sun07/20/17 at 1515, Administer prior to chemotherapy Given 07/20/2017 4:12 PM EDT 10 mg DOXOrubicin (ADRIAMYCIN) chemo injection 109.8 mg 109.8 mg (60 mg/m2/dose ? 1.83 m2 Treatment Plan BSA from Recorded weight), Intravenous, ONCE, 1 dose, On Sun07/20/17 at 1615, Administer over 3 Minutes, Administer each syringe over a minimum of 3 minutes per syringe. Given 07/20/2017 5:12 PM EDT 109.8 mg 1098 mL/hr fosaprepitant (EMEND) 150 mg in sodium chloride 0.9% 155 mL infusion 150 mg, Intravenous, at 310 mL/hr, Administer over 30 Minutes, ONCE, 1 dose, On Sun07/20/17 at 1515, Routine New Bag 07/20/2017 4:13 PM EDT 150 mg 310 mL/hr heparin, porcine 100 unit/mL flush 500 Units 500 Units, Intravenous, ONCE PRN, Starting on Sun07/20/17 at 1446, Until 07/21/17 at 0436, Line Care, Refer to Intravenous (IV) Procedure: Accessing Implanted Vascular Access Devices (524) procedure and/or Intravenous (IV) Job Aid: Adult Flushing & Catheter Care (0053) job aid for additional information regarding guidelines and administration., Routine Given 07/20/2017 6:14 PM EDT 500 Units LORazepam (ATIVAN) tablet 0.5 mg 0.5 mg, Oral, ONCE, 1 dose, On Sun07/20/17 at 1515, Administer prior to chemotherapy, Routine Given 07/20/2017 4:12 PM EDT 0.5 mg palonosetron (ALOXI) injection 0.25 mg 0.25 mg, Intravenous, ONCE, 1 dose, On Sun07/20/17 at 1515, Administer over 30 seconds. Administer prior to chemotherapy, Routine Given 07/20/2017 4:12 PM EDT 0.25 mg pegfilgrastim (NEULASTA ONPRO) injection kit 6 mg, Subcutaneous, ONCE, 1 dose, On Sun07/20/17 at 1515, Allow the prefilled syringe co-packaged with the on-body injector to reach room temperature at least 30 minutes prior to administration., Routine, This agent is restricted to outpatient use. Is this drug being given as an outpatient? Yes Given 07/20/2017 6:13 PM EDT 6 mg Right Arm prochlorperazine (COMPAZINE) tablet 10 mg 10 mg, Oral, ONCE, 1 dose, On Sun07/20/17 at 1515, Maximum dose: 50 mg / 24 hrs, Routine Given 07/20/2017 4:11 PM EDT 10 mg sodium chloride 0.9 % flush 5-20 mL 5-20 mL, Intravenous, EVERY 1 MIN PRN, Starting on Sun07/20/17 at 1446, Until 07/21/17 at 0436, Line Care, Flush pertains to all indwelling lines. Flush per protocol found in the job aid using the link provided on this medication record. Refer to Intravenous (IV) Job Aid: Adult Flushing & Catheter Care (7553) job aid for additional information regarding guidelines and administration., Routine Given 07/20/2017 6:13 PM EDT 20 mLs documented in this encounter Care Teams Hairspring Vibrator Relationship Specialty Start Date End Date Trinh Coates MD [address] [place] [address] PCP - General 01/11/10 documented as of this encounter
--- OUTSIDE RECORDS SUMMARY | 2023-09-07 11:32 | XMS_ITS | Encounter Summary ---
Author Organization [facility] Address [facility] [place] [address] Care Team Providers Care Steam Box Operator Name Role Phone Trinh Coates MD Primary Care Provider [phone] Reason for Visit * Reason Comments Follow Up Surgery Encounter Details Date Type Department Care Team (Late st Contact Info) Description 07/10/2017 8:30 AM EDT Office [place] [address] Mali Lakhani MD [facility] [place] [address] S/P breast reconstruction, bilateral Social History Tobacco [...] this encounter Patient Instructions * Patient Instructions* Mali Lakhani MD - 07/10/2017 8:30 AM EDT Follow up 07/17 with Jolene, proceed with chemotherapy following the appointment if there are no concerns documented in this encounter Progress Notes * Mali Lakhani MD - 07/10/2017 8:30 AM EDT Plastic Surgery Follow Up Note Date of surgery: 04/26/17 Procedure(s): Bilateral breast reconstruction with attempted SALVADOR flaps, eventual tissue heat and frost insulator placement with Alexandria Yulia 600 cc expanders placed bilaterally and filled with 450 cc of methyleneblue impregnated saline.) Complications: right parietal and visceral pleural tear, arterial flap failure bilaterally Date of surgery: 06.22.17 Procedure(s) left breast wound debridement, excision and closure. Debridement of umbilicus. Deflation of heat and frost insulator volume, This leaves 450 cc in the left tissue heat and frost insulator and 500 cc on the right side Chemotherapy: TBD Radiation: TBD HPI: Pt reports she has been okay and is accompanied by her . She appreciated a small amountof drainage from her left breast 5 days ago. The patient believes it is improving and has not had any drainage since. Her left breast is tender. She reports that she has had a lot of swelling in the past and is concerned that allowed the heat and frost insulator to flip. She has questions about when she can begin chemotherapy. Examination: Patient is alert, conversant, comfortable, ambulating Left tissue heat and frost insulator appears to have maintained its fill volume Suture line is intact No sign of drainage No cellultitis Do not palpate any fluid collection Pt has a new Mediport placed in the right breast No sign of purulence in the umbilical remnant Impression: Wendy Sadnoval is a 52 y.o. female who was seen today for follow- up after the above procedure. Please see the operative note for details. We discussed that the heat and frost insulator may have flipped from the front to the back. This could be adjusted in the future, but I recommend the patient further heal. We may not be able to fill from the back of the heat and frost insulator,however, I will discuss this withthe Rep from [facility]. I would not recommend expansions until the patient is a few weeks or more intochemotherapy. I am hopeful with what I see that the patient will be able to begin chemotherapy nextweek following her appointment with Jolene Azevedo. Plan: Follow up next week with Jolene, proceed with chemotherapy following the appointment if there are no concerns I, Sanket Davila, have performed the documentation [...] 01/22/2024 10:30 AM EST Appointment Mammography/DXA at [place] [phone] Ladi Mendosa MD [facility] [place]AT[place] [address] 01/30/2024 11:30 AM EST Office Visit Dermatology at [address] [place] [phone] Nilda Luis MD [facility] [address] 02/15/2024 9:30 AM EST [place] [phone] [place] [address] documented as of this encounter Visit Diagnoses Diagnosis S/P breast reconstruction, bilateral Breast replaced by other means documented in this encounter Care Teams Steam Box Operator Relationship Specialty Start Date End Date Trinh Coates MD [facility] [address] [place] [address] PCP - General 01/11/10 documented as of this encounter
--- OUTSIDE RECORDS SUMMARY | 2023-09-07 11:32 | XMS_ITS | Encounter Summary ---
[place] [address] Care Team Providers Care International Editorial Producer Name Role Phone Trinh Coates MD Primary Care Provider [phone] Reason for Referral * Diagnostic Test (Routine) - Closed Specialty Diagnoses / Procedures Referred By Contac t Referred To Contact Radiology Diagnoses S/P breast reconstruction Procedures IR Breast Drain Placement IR All Drainage Procedures Jolene Azevedo APRN [facility] [place] [address] [place] [address] Referral ID Status Reason Start Date Expiration Date V isits Requested Visits Authorized [id number] Closed Specialty Service Requested 06/26/2017 06/26/2018 1 1 Reason for Visit * Diagnostic Test (Routine) - Closed Specialty Diagnoses / Procedures Referred By Contrenan t Referred To Contact Radiology Diagnoses S/P breast reconstruction Procedures IR Breast Drain Placement IR All Drainage Procedures Jolene Azevedo MIRROR SILVERER [facility] [place] [address] [place] [address] Referral ID Status Reason Start Date Expiration Date V isits Requested Visits Authorized [id number] Closed Specialty Service Requested 06/26/2017 06/26/2018 1 1 Encounter Details Date Type Department Care Team (Latest Contact Info) Description 06/26/2017 2:26 PM EDT - 06/26/2017 11:59 PM EDT Hospital [place] [address] Jolene Azevedo APRN [facility] [place] [address] S/P breast reconstruction Discharge Disposition: Home Social History Tobacco Use [...] Sign Reading Time Taken Comments Blood Pressure 193/101 06/26/2017 4:15 PM EDT per pt BP is always high and has to be taken on leg Pulse 79 06/26/2017 3:50 PM EDT Temperature 36.6 ??C (97.8 ??F) 06/26/2017 2 :41 PM EDT Respiratory Rate 18 06/26/2017 4:15 PM EDT Oxygen Saturation 96% 06/26/2017 4:1 5 PM EDT Inhaled Oxygen Concentration - - Weight - - Height - - Body Mass Index - - documented in this encounter Discharge Instructions * Discharge Instructions* Libertad Wong RN - 06/26/2017 3:51 PM EDT [facility] Vascular and Interventional Radiology Discharge Instructions For [...] is during regular office hours, please call [phone]. If it is after regular office hours, or on weekends or holidays, please call [phone] and ask to speak to the Icu Clerk backend python developer for Interventional Radiology. You have received medication [...] daily 03/27/2014 024 cephalexin (KEFLEX) 500 mg Tablet Take 1 tablet by mouth 4 times daily for 7 days. 28 tablet 1 06/22/2017 06/29/2017 prochlorperazine (COMPAZINE) 10 mg Tablet Take 1 [...] daily. 10/31/2012 documented as of this encounter Progress Notes * Agapito Schrader RN - 06/26/2017 11:59 PM EDT Interventional and Vascular Radiology Post-Procedure Call Name: Wendy Sandoval Age: 52 y.o. Sex; Female Date of : 1965 (home) Telephone Information: PCP Trinh Coates MD [phone] Date/Time of call: 2017/8:50 AM Procedure: Breast Drain Placement Procedural Provider: Dr. Crowley/ Dr. Astudillo Contact with patient or if not, with whom? No Message left on answering machine? Yes Provider notified via phone or email if unable to contact pt: (yes/no) Are you having pain related to your procedure now? Are you having any swelling or bleeding from the site? Are there any improvement in your symptoms? Are you having any other problems related to your procedure? Comments: Did you understand the discharge instructions given and do you have any questions? Comments: Do you have any comments about your Nurse or Provider or the care you received? Nurse Comments: * Libertad Wong RN - 06/26/2017 3:32 PM EDT 1517 To procedure room 2 via stretcher. On stretcher. BP cuff and Pulse Ox on patient. Fentanyl only. * Libertad Wong RN - 06/26/2017 3:28 PM EDT [facility] Name: WENDY SANDOVAL Date of : 1965 AGE 52 y.o. [address]: [address] [place] [phone] (home) [phone] (work) Mobile: Telephone Information: Referring Provider: Jolene Azevedo REASON FOR VISIT: Date/time of procedure: Pertinent info from Pre-call (if any): Labs ordered: Med's stopped: Where will study be performed? [facility] Laterality Left Reason for exam and clinical history: possible fluid collection left breast s/p breast reconstruction. please drain if found. leave indewelling drain. Do not flush. Exam/Procedure requested: IR drain placement Is the patient ? Unknown Is the patient on anticoagulant / anitplatelet therapy ? No Plan Planned procedure: ASPIRATE LEFT BREAST FLUID; SEND FLUID FOR CX Sedation: fentanyl only Planned access site: LEFT BREAST; SITE TO BE DETERMINED Position: Supine Allergies Allergen Reactions ??? Pcn [Penicillins] ??? Zoloft [Sertraline] PSORIASIS FLARE Pertinent PMH: Patient Active Problem List Diagnosis Code ??? Hypertension I10 ??? Depression F32.9 ??? Obstructive sleep apnea (adult) (pediatric) G47.33 ??? OA (osteoarthritis) M19.90 ??? Overweight(278.02) E66.3 ??? Hyperparathyroidism E21.3 ??? Malignant neoplasm of upper-outer quadrant of left breast in female, estrogen receptor kfiklmpqH67.412, Z17.0 ??? S/P breast reconstruction Z98.82 ??? Surgery follow-up Z09 ??? Abdominal wound dehiscence T81.30XA Pertinent PSH: Past Surgical History: Procedure Laterality Date ??? BREAST BIOPSY Right 11/01 ??? SECTION x 2 ??? HAND SURGERY Right ??? PRG EMG, LARYNX N/A 11/02/2015 FACIAL NERVE MONITORING, SETUP LARYNGEAL performed by Valentina Lucas MD at [facility] MAIN OR ??? PRO BREAST RECONSTRUC W FREE FLAP Bilateral 04/26/2017 @BREAST RECONSTRUCTION W/ FREE FLAP, SUSAN (WRVU 42.58) performed by Andre Gimenez MD at [facility] [place] ??? PRO BREAST RECONSTRUC W TISS EXPANDR Bilateral 04/26/2017 BREAST RECONSTRUCTION, IMMEDIATE OR DELAYED, W/ TISSUE RIGGING MAN, INCLUDING SUBSEQUENT EXPANSION (WRVU 18.5) performed by Andre Gimenez MD at [facility] MAIN OR ? ? PRO DEBRIDEMENT SUBCUTANEOUS TISSUE 20 SQCM/< 06/22/2017 DEBRIDEMENT SKIN AND SUBCU, BREAST (WRVU 1.01) performed by Andre Gimenez MD at [facility] OR ??? PRO EXPLORE PARATHYROID GLANDS N/A 11/02/2015 PARATHYROIDECTOMY OR EXPLORATION OF PARATHYROID(S) performed by Valentina Lucas MD at [facility] OR ? ? PRO FULL THICK GRFT TRUNK <20 SQCM Bilateral 04/26/2017 FTSG, FREE, DIR CLOSE DONOR SITE, TRUNK, 20 SQ CM OR LESS (WRVU 9.15) performed by Andre Gimenez MD at [facility] OR ??? PRO MASTECTOMY, SIMPLE, COMPLETE Bilateral 04/26/2017 MASTECTOMY, SIMPLE, COMPLETE-SUSAN (WRVU 15.85) performed by Jolie Menendez MD at [facility] OR ??? PRO PARTIAL REMOVAL OF RIB Bilateral 04/26/2017 EXCISION OF RIB, PARTIAL (WRVU 7.26) performed by Andre Gimenez MD at [facility] OR ??? PRO REMOVE ARMPITS LYMPH NODES COMPLT Left 04/26/2017 LYMPHADENECTOMY, AXILLARY, COMPLETE (WRVU 13.87) performed by Jolie Menendez MD at [facility] OR ??? PRO REVISE BREAST RECONSTRUCTION Left 06/22/2017 REVISION OF RECONSTRUCTED BREAST (WRVU 10.41) performed by Andre Gimenez MD at [facility] OR ??? PRO THYMECTOMY, TRANSCERVICAL N/A 11/02/2015 THYMECTOMY, TRANSCERVICAL APPROACH performed by Valentina Lucas MD at [facility] OR ??? SHOULDER [...] R drain removed. Fentanyl 50 mcg IV? [id number] Left breast aspiration/ 30 ml Fentanyl 100 mg IV Laboratory Results: Lab Results Component Value Date [...] tablet 2 times daily. 10/31/12 PROVIDER, HISTORICAL * Diana Azevedo APRN - 06/26/2017 2:49 PM EDT Images from the original note were not included. INTERVENTIONAL RADIOLOGY FOCUSED H&P and PRE-PROCEDURE NOTE: PCP: Trinh Coates MD Referring Provider: Jolene Azevedo Planned Procedure: Drainage of fluid around LEFT breast lead electrical controls engineer Procedure Indication: Recurrent, palpable fluid around lead electrical controls engineer Presenting Diagnosis/ Complaint: Wendy Sandoval is a 52 y.o. female with LEFT breast cancer, s/pbilateral mastectomy with tissue expanders (04/26/17). Patient has had multiple drains bilaterally with IR for seromas and infections. Last with IR 06/06/17 : The RIGHT drain was removed, and LEFT breast drain left in place, and subsequently removed in clinic by Jolene Azevedo APRN. On 06/22/17 patient underwent LEFT breast wound debridement, excision and closure, with decrease in lead electrical controls engineer on left to 450cc. Postoperative visit today demonstrated a palpable mass around the lead electrical controls engineer on the LEFT; US showed small fluid collection. Past Medical/Surgical History: Patient Active Problem List Diagnosis Code ??? Hypertension I10 ??? Depression F32.9 ??? Obstructive sleep apnea (adult) (pediatric) G47.33 ??? OA (osteoarthritis) M19.90 ??? Overweight(278.02) E66.3 ??? Hyperparathyroidism E21.3 ??? Malignant neoplasm of upper-outer quadrant of left breast in female, estrogen receptor ysmlnkivW63.412, Z17.0 ??? S/P breast reconstruction Z98.82 ??? [...] LARYNGEAL performed by Valentina Lucas MD at [facility] OR ??? PRO BREAST RECONSTRUC W FREE FLAP Bilateral 04/26/2017 @BREAST RECONSTRUCTION W/ FREE FLAP, SUSAN (WRVU 42.58) [facility] ??? PRO BREAST RECONSTRUC W TISS EXPANDR Bilateral 04/26/2017 BREAST RECONSTRUCTION, IMMEDIATE OR DELAYED, W/ TISSUE RIGGING MAN, INCLUDING SUBSEQUENT EXPANSION (WRVU 18.5) performed by Andre Gimenez MD at [facility] OR ? ? PRO DEBRIDEMENT SUBCUTANEOUS TISSUE 20 SQCM/< 06/22/2017 DEBRIDEMENT SKIN AND SUBCU, BREAST (WRVU 1.01) performed by Andre Gimenez MD at [facility] OR ??? PRO EXPLORE PARATHYROID GLANDS N/A 11/02/2015 PARATHYROIDECTOMY OR EXPLORATION OF PARATHYROID(S) performed by Valentina Lucas MD at [facility] OR ? ? PRO FULL THICK GRFT TRUNK <20 SQCM Bilateral 04/26/2017 FTSG, FREE, DIR CLOSE DONOR SITE, TRUNK, 20 SQ CM OR LESS (WRVU 9.15) performed by Andre Gimenez MD at [facility] MAIN OR ??? PRO MASTECTOMY, SIMPLE, COMPLETE Bilateral 04/26/2017 MASTECTOMY, SIMPLE, COMPLETE-SUSAN (WRVU 15.85) performed by Jolie Menendez MD at [facility] OR ??? PRO PARTIAL REMOVAL OF RIB Bilateral 04/26/2017 EXCISION OF RIB, PARTIAL (WRVU 7.26) performed by Andre Gimenez MD at [facility] OR ??? PRO REMOVE ARMPITS LYMPH NODES COMPLT Left 04/26/2017 LYMPHADENECTOMY, AXILLARY, COMPLETE (WRVU 13.87) performed by Jolie Menendez MD at [facility] OR ??? PRO REVISE BREAST RECONSTRUCTION Left 06/22/2017 REVISION OF RECONSTRUCTED BREAST (WRVU 10.41) performed by Andre Gimenez MD at [facility] OR ??? PRO THYMECTOMY, TRANSCERVICAL N/A 11/02/2015 THYMECTOMY, TRANSCERVICAL APPROACH performed by Valentina Lucas MD at [facility] OR ??? SHOULDER SURGERY Left ??? UMBILICAL HERNIA REPAIR Medications: Current Outpatient Prescriptions on File Prior to Encounter Medication Sig Dispense Refill ??? cephalexin (KEFLEX) 500 mg Tablet Take 1 tablet by mouth 4 times daily for 7 days. 28 tablet 1 ??? cholecalciferol, Vitamin D3, (VITAMIN D-3) 5,000 [...] ALT 21 03/29/2017 PROT 6.6 03/29/2017 Imaging: Assessment: 52 y.o. female with history as above who presents for recurrent fluid collection aroundLEFT breast tissue lead electrical controls engineer. Insufficient volume for drain placement, but can aspirate and send forculture. Plan Planned procedure: ASPIRATE LEFT BREAST FLUID; SEND FLUID FOR CX Sedation: fentanyl only Planned access site: LEFT BREAST; SITE TO BE DETERMINED Position: Supine 06/26/2017 documented in this encounter Procedure Notes * Andre Crowley MD - 06/26/2017 5:25 PM EDT IR PROCEDURE NOTE Procedure: US guided left breast aspiration. Indication for Procedure: Per Diana Hansen's note: Wendy Sandoval is a 52 y.o. female with LEFT breast cancer, s/p bilateral mastectomy with tissue expanders (04/26/17). Patient has had multiple drains bilaterally with IR for seromas and infections. Last with IR 06/06/17 : The RIGHT drain was removed, and LEFT breast drain left in place, and subsequently removed in clinic by Jolene Azevedo APRN. ?? On 06/22/17 patient underwent LEFT breast wound debridement, excision and closure, with decrease in lead electrical controls engineer on left to 450cc. ?? Postoperative visit today demonstrated a palpable mass around the lead electrical controls engineer on the LEFT; US showed small fluid collection. Procedure events and findings: After discussing risks (including infection and hemorrhage), and benefits, patient consented to the procedure. Maximal sterile barrier technique was utilized throughoutthe procedure. Due to the painful nature of the procedure, patient received split doses of intravenous fentanyl from the IR nurse while pulse, pressure, and oxygen saturation were continuously monitored. Fluid was identified along the lateral periphery of the patient's left breast implant. After sterile preparation of the overlying skin, 1% lidocaine SQ was administered for local anesthesia, and a 21ga needle was advanced under US guidance into the fluid near the left axilla. 35 cc of serosanguinous fluid was aspirated. Residual fluid remained, elected not to attempt re-access to remove more dueto proximity to implant. The patient tolerated the procedure well. Medications: Fentanyl 100 mcg IV, 1% Lidocaine <10ccs subcutaneous. Est Blood Loss: <5cc. Complications: No immediate Impression: 1. US guided aspiration of 35ccs fluid adjacent to the left breast implant, sent for labs. 2. There is residual fluid, elected not to attempt re-access to remove more due to proximity to implant. 3. Ms. Sandoval due to return for port placement, additional fluid could potentially be removed at that time if indicated. Resident/Fellow: Baudilio Attending: Dr. Crowley. I, Dr. Crowley was present throughout this procedure. documented in this encounter Plan of Treatment Upcoming Encounters Date Type Department Care Team (Late st Contact Info) Description 01/22/2024 10:30 AM EST Appointment Mammography/DXA at [place] [phone] Ladi Mendosa MD [facility] [place] [address] 01/30/2024 11:30 AM EST Office Visit Dermatology at [address] [phone] Nilda Luis MD [facility] [address] [place] [address] 02/15/2024 9:30 AM EST [place] [address] [place] [address] documented as of this encounter Procedures Procedure Name Priority Date/Time Associated Diagnosis Comments IR BREAST DRAIN PLACEMENT Routine 06/26/2017 4:02 PM EDT S/P breast reconstruction ABSCESS/WOUND ASPIRATE CULTURE Routine 06/26/2017 3:50 PM EDT S/P breast reconstruction documented in this encounter Results * IR Breast Drain Placement (06/26/2017 4:02 PM EDT) Anatomical Region Laterality Modality X-Ray Angiograph y Narrative 06/26/2017 5:25 PM EDT IR PROCEDURE NOTE Procedure: US guided left breast aspiration. Indication for Procedure: Per Diana Hansen's note: Wendy Sandoval is a 52 y.o. female with LEFT breast cancer, s/p bilateral mastectomy with tissue expanders (04/26/17). ??Patient has had multiple drains bilaterally with IR for seromas and infections. ?? Last with IR 06/06/17 : ??The RIGHT drain was removed, and LEFT breast drain left in place, and subsequently removed in clinic by Jolene Azevedo APRN. ?? On 06/22/17 patient underwent LEFT breast wound debridement, excision and closure, with decrease in lead electrical controls engineer on left to 450cc. ?? Postoperative visit today demonstrated a palpable mass around the lead electrical controls engineer on the LEFT; US showed small fluid collection. Procedure events and findings: After discussing risks (including infection and hemorrhage), and benefits, patient consented to the procedure. Maximal sterile barrier technique was utilized throughout the procedure. Due to the painful nature of the procedure, patient received split doses of intravenous fentanyl from the IR nurse while pulse, pressure, and oxygen saturation were continuously monitored. Fluid was identified along the lateral periphery of the patient's left breast implant. After sterile preparation of the overlying skin, 1% lidocaine SQ was administered for local anesthesia, and a 21 ga needle was advanced under US guidance into the fluid near the left axilla. ?? 35 cc of serosanguinous fluid was aspirated. ??Residual fluid remained, elected not to attempt re-access to remove more due to proximity to implant. The patient tolerated the procedure well. Medications: Fentanyl 100 mcg IV, 1% Lidocaine <10ccs subcutaneous. Est Blood Loss: <5cc. Complications: ??No immediate Impression: 1. ??US guided aspiration of 35ccs fluid adjacent to the left breast implant, sent for labs. 2. ??There is residual fluid, elected not to attempt re-access to remove more due to proximity to implant. 3. ??Ms. Sandoval due to return for port placement, additional fluid could potentially be removed at that time if indicated. Resident/Fellow: Baudilio Attending: Dr. Crowley. ??I, Dr. Crowley was present throughout this procedure. ? Jolene Azevedo APRN IMG IR ORDERABLES * (ABNORMAL) Abscess/Wound Aspirate Culture Fluid; Breast, Left (06/26/2017 3:50 PM EDT) Abscess/Wound Aspirate Culture Few Escherichia coli(A) [facility] Gram Stain Moderate White Blood Cells seen No microorganisms seen. (A) [facility] Organism Escherichia coli(A) [facility] Fluid specimen (specimen) LEFT BREAST STRUCTURE / Unknown 06/26/2017 3:50 PM EDT 2017 7:27 AM EDT Narrative Resulting Agency Comment Spec In Lab Organism Antibiotic Method Susceptibility Escherichia coli Amikacin MICROSCAN METHOD Sensitive Escherichia coli Ampicillin MICROSCAN METHOD Sensitive Escherichia coli Ampicillin + Sulbactam MICROSCAN METH OD Sensitive Escherichia coli Aztreonam MICROSCAN METHOD Sensitive Escherichia coli Cefazolin MICROSCAN METHOD Sensitive Escherichia coli Cefepime MICROSCAN METHOD Sensitive Escherichia coli Ceftazidime MICROSCAN METHOD Sensitive Escherichia coli Ceftriaxone MICROSCAN METHOD Sensitive Escherichia coli Cefuroxime MICROSCAN METHOD Sensitive Escherichia coli Ciprofloxacin MICROSCAN METHOD Sensitive Escherichia coli Gentamicin MICROSCAN METHOD Sensitive Escherichia coli Levofloxacin MICROSCAN METHOD Sensitive Escherichia coli Meropenem MICROSCAN METHOD Sensitive Escherichia coli Piperacillin/Tazobactam MICROSCAN MET HOD Sensitive Escherichia coli Tetracycline MICROSCAN METHOD Sensitive Escherichia coli Tigecycline MICROSCAN METHOD Sensitive Escherichia coli Tobramycin MICROSCAN METHOD Sensitive Escherichia coli Trimethoprim/Sulfa MICROSCAN METHOD Sensitive Jolene Azevedo APRN MICROBIOLOGY - GENER AL ORDERABLES [facility] [place] [address] documented in this encounter Visit Diagnoses Diagnosis S/P breast reconstruction Breast replaced by other means documented in this encounter Administered Medications Inactive Administered Medications - up to 3 most recent administrations Medication Order MAR Action Action Date Dose Rate Site fentaNYL 50 mcg/mL multi-dose injection 25-50 mcg, Intravenous, EVERY 5 MIN PRN, Starting on Sun06/26/17 at 1508, Until Tu06/26/17 at 1553, Pain, per unit protocol, - Start dose [...] and verbal order., Angio/IR (Intra-Procedure), Routine Given 06/26/2017 3:36 PM EDT 50 mcg Given 06/26/2017 3:30 PM EDT 50 mcg lidocaine (XYLOCAINE) 10 mg/mL (1 %) injection 10 mg 10 mg, Subcutaneous, ONCE, 1 dose, On Sun06/26/17 at 1530, For use in Interventional Radiology (IR) only for procedure with direct provider supervision and verbal order., Angio/IR (Intra-Procedure), Routine Given 06/26/2017 3:15 PM EDT 10 mg sodium chloride 0.9% infusion 1,000 mL, at 100 mL/hr, Intravenous, CONTINUOUS, Starting on Sun06/26/17 at 1530, Until Sun06/26/17 at 1639, Day of Surgery (Day of Procedure) New Bag 06/26/2017 3:30 PM EDT 1,000 mLs 100 mL/hr documented in this encounter Care Teams International Editorial Producer Relationship Specialty Start Date End Date Trinh Coates MD [address] [place] [address] PCP - General 01/11/10 documented as of this encounter
--- OUTSIDE RECORDS SUMMARY | 2023-09-07 11:32 | XMS_ITS | Encounter Summary ---
Author Organization [facility] Address [facility] [place] [address] Care Team Providers Care Central Service Technician Name Role Phone Trinh Coates MD Primary Care Provider [phone] Reason for Visit * Reason Comments Follow Up Surgery check breast wound Encounter Details Date Type Department Care Team (Late st Contact Info) Description 06/11/2017 9:30 AM EDT Office [place] [address] Mali Lakhani MD [facility] [place] [address] S/P breast reconstruction, bilateral Social History Tobacco [...] this encounter Patient Instructions * Patient Instructions* Sanket Davila - 06/11/2017 9:30 AM EDT 1. Proceed with visit with Jolene on June 20, cancel June 13 appt 2. Begin using wet to dry dressings on NAC, discontinue silvadene on nipples. 3. Continue silvadene on umbilicus, continue silver foam on abdominal incision 4. Rx of Keflex given 5. Able to have Mediport placed 6. Letter given to to be out of jury duty documented in this encounter Progress Notes * Mali Lakhani MD - 06/11/2017 9:30 AM EDT Plastic Surgery Follow Up Note Date of surgery: 04/26/17 Procedure(s): Bilateral mastectomies with attempted SALVADOR flaps, SALVADOR flaps debrided and TE expanderbreast reconstruction ([place] Artura 600 cc expanders placed bilaterally and filled with 450 cc of methylene blue impregnated saline.) Complications: Failure of SALVADOR flaps HPI: Pt reports that she is feeling better. She is accompanied by her for today's visit. The patient continues to have an average daily drain output of 30-50 cc's from her breast drain. The patient's was concerned about the drainage smelling like urine. She has been taking Keflex,but has some nausea. She has not been taking the Linezolid. The patient denies any fever or chills or diarrhea. She has tenderness in her left arm and breast. She has not begun physical therapy, but when she begins she would like to do it in [place]. Her Mediport was not placed last week. The patient will begin chemotherapy on June 21, and will proceed with radiation after she finishes stalin motherapy. Examination: Patient is alert, conversant, comfortable, ambulating Drainage output appears consistent with old fat +/- lymph No evidence of cellulitis or infection Nipple grafts continue to resolve bilaterally Abdominal wound is near completely closed, silver dressing in place No active drainage, infection, or discharge Abdominal drains are gone Debrided back areas of bilateral FNG and umbilicus Bilateral breast tissue expanders continue to have a total volume of 500 ml, no expansion was performed today Impression: Wendy Sandoval is a 51 y.o. female who was seen today for follow- up after the above procedure. Please see the operative note for details. I assured the patient she continues to heal and her tenderness should continue to improve over time. The patient will begin wet to dry dressings on her NAC and discontinue the silvadene application. She will continue silvadene application on her umbilicus and silver foam on her abdominal incision. Her abdominal incision is nearly healed. The nature of wet to dry dressings was discussed. From my standpoint, I am okay with the patient having her Mediport placed, I see no active infection. She will follow up on June 20, at which time hopefullythe drain may be removed. Plan: 1. Proceed with visit with Jolene on June 20, cancel June 13 appt 2. Begin using wet to dry dressings on NAC, discontinue silvadene on nipples. 3. Continue silvadene on umbilicus, continue silver foam on abdominal incision 4. Rx of Keflex given 5. Able to have Mediport placed 6. Letter given to to be out of jury duty I, Sanket Davila, have performed the documentation for this encounter in the presence of and acting as a scribe for MALI LAKHANI MD. I performed the services which were documented by the scribe, and I agree with the accuracy of the documentation in this encounter. Mali Lakhani MD documented in this encounter Plan of Treatment Upcoming Encounters Date Type Department Care Team (Late st Contact Info) Description 01/22/2024 10:30 AM EST Appointment Mammography/DXA at [place] [phone] Ladi Mendosa MD [facility] HEMATOLOGY/[place] [address] 01/30/2024 11:30 AM EST Office Visit Dermatology at [address] [place] [phone] Nilda Luis MD [facility] [address] [place] [address] 02/15/2024 9:30 AM EST Appointment [place] [address] [place] [address] documented as of this encounter Visit Diagnoses Diagnosis S/P breast reconstruction, bilateral Breast replaced by other means documented in this encounter Care Teams Central Service Technician Relationship Specialty Start Date End Date Trinh Coates MD [address] [place] [address] PCP - General 01/11/10 documented as of this encounter
--- OUTSIDE RECORDS SUMMARY | 2023-09-07 11:32 | XMS_ITS | Encounter Summary ---
Author Organization [facility] Address [facility] [place] [address] Care Team Providers Care Mushroom Growing Supervisor Name Role Phone Trinh Coates MD Primary Care Provider [phone] Reason for Visit * Auth/Cert Specialty Diagnoses / Procedures Referred By Diamante t Referred To Contact Diagnoses left breast wound Procedures PRO DEBRIDEMENT SUBCUTANEOUS TISSUE 20 SQCM/< PRO ADJ TISS XFER TRUNK <10SQCM PRO ADJ TISS XFER TRUNK 10.1-30 DEBRIDEMENT SKIN AND SUBCU, BREAST (WRVU 1.01) ADJ.TISSUE TRANSFER, REARRANGEMENT, TRUNK,10SQ.CM OR LESS (WRVU 6.37) ADJ.TISSUE TRANSFER, REARRANGEMENT, TRUNK,10.1 TO 30 SQ CM (WRVU 8.78) Referral ID Status Reason Start Date Expiration Date Visits Re quested Visits Authorized [id number] 1 1 Encounter Details Date Type Department Care Team (Latest Contact Info) Description 06/22/2017 3:33 PM EDT - 06/22/2017 7:26 PM EDT Hospital Encounter [place] [phone] Mali Lakhani MD [facility] [place] [address] Discharge Disposition: Home Social History Tobacco Use [...] Sign Reading Time Taken Comments Blood Pressure 148/98 06/22/2017 6:45 PM EDT Pulse 70 06/22/2017 4:00 PM EDT Temperature 36.8 ??C (98.2 ??F) 06/22/2017 5:49 PM ED T Respiratory Rate 18 06/22/2017 4:00 PM EDT Oxygen Saturation 95% 06/22/2017 6:51 PM EDT Inhaled Oxygen Concentration - - Weight - - Height - - Body Mass Index - - documented in this encounter Discharge Instructions * Discharge Instructions* Carrie Ahumada RN - 06/22/2017 6:39 PM EDT ?? * Patient Instructions* Yo Krueger MD - 06/22/2017 5:14 PM EDT DISCHARGE INSTRUCTIONS WOUND CARE: Keep dressing clean dry and intact for 48 hours, then ok to remove and leave open to air. You must avoid sunlight exposure to your incision(s). Do not use any over the counter ointments on the incisions postoperatively unless instructed by your provider. SHOWERING: OK to shower two days after surgery and get incisions wet. Gently wash your incisions with soap andwater. Pat dry with a clean towel. Do not submerge your surgical site under water until cleared by your provider. MEDICATIONS: You should resume your home medications. ACTIVITIES: Minimize contact to affected area(s). No heavy lifting until seen by MD. DIET: Regular healthy diet. DO???S AND DON???TS FOR THE NEXT 6 WEEKS: Do not drive a motor vehicle for 1-2 weeks or until you can handle the steering wheel without discomfort. Do not smoke or be around anyone who smokes for 2 weeks after your surgery this is because smoking delays healing and can lead to infection. Do not lift more than 5 pounds for 6 weeks. Do not participate in strenuous activities such as running or aerobics for 6 weeks. Do resume walking at a gentle pace. Protect your incisions from the sun for 6 months to 1 year. CALL MD IF: - Your incision opens up. - You have signs of infection such as: - temperature over 100.4F or 38C - redness or warmth spreading away from the incision lines after the first 48 hours - yellow pus-like or foul smelling drainage larger than dime size from the incisions or drainage sites - increased swelling or pain During office hours: Sunday - Sunday 8am-5pm call [phone]. On weekends or after hours call [phone] and ask the vibrator operator to page the plastic surgery resident school transportation supervisor. CONTACT INFORMATION: During office hours (Sunday through Sunday 8 am to 5 pm): Call [phone]. On weekends or after hours: Call [phone] and ask the vibrator operator to speak to the Plastic Surgery Resident on-call. FOLLOW-UP APPOINTMENTS: Your follow-up has been scheduled: Future Appointments Date Time Provider Department Center 06/26/2017 10:00 AM Jolene Azevedo APRN [facility] 07/03/2017 12:00 PM [facility] IR ROOM 2 IR [facility] 07/05/2017 8:45 AM LABORATORY, TECH [facility]K [facility] 07/05/2017 10:00 AM Gustavo Mota MD [facility] Onc [facility] 07/05/2017 11:30 AM [facility] IN[facility]ION THERAPY [facility] 10/31/2017 1:00 PM Corine Barron, [facility] STJ Hem Off [facility] documented in this encounter Medications at Time [...] as of this encounter Progress Notes * Carrie Ahumada RN - 06/22/2017 7:25 PM EDT Patient discharge to home. IV removed, site benign. My assessment remains unchanged from my previous assessment. RN Discussed pain management with patient, pain tolerable. Patient medicated prior to discharge. Patient has all belongings and supplies needed. Patient received After Visit Summary. This was reviewed with patient and spouse, patient verbalizes understanding of AVS. All questions answered. Patient encouraged to call with questions or concerns. Patient discharged to home with family. documented in this encounter H&P Notes * Khris Castro MD - 06/22/2017 3:54 PM EDT Plastic Surgery Service Day of Surgery History and Physical HPI: Wendy Sadnoval ( ) is a 51 y.o. female who presents for I&D of Left breasttoday. Her condition is unchanged since her H&P was performed in clinic. She has had no changes to herhealth, medical/surgical history, or medications. From Dr. Lakhani's clinic note: S/p bilateral SALVADOR flaps with subsequent failure of SALVADOR flaps, nowwith nonhealing open area of left NAC. Discussed planning for debridement of the wound with closureto expedite her wound healing and enable her to begin her chemotherapy and travel for her daughter's graduation. Allergies: Allergies Allergen Reactions ??? Pcn [Penicillins] ??? Zoloft [Sertraline] PSORIASIS FLARE Home Medications: Prescriptions Prior to Admission Medication Sig Dispense Refill Last Dose ??? cholecalciferol, Vitamin D3, (VITAMIN D-3) 5,000 unit Tablet Take by mouth. 06/21/2017 at Unknowntime ??? Lactobacillus (BACID) 0.5 mg (100 million cell) Tablet Take 1 tablet by mouth daily. 30 tablet 0 06/21/2017 at Unknown time ??? valsartan-hydrochlorothiazide (DIOVAN-HCT) 160-12.5 mg Tablet Take 1 tablet by mouth daily. 06/20/2017 at Unknown time ??? atorvastatin (LIPITOR) 20 mg Tablet Take 1 tablet by mouth daily. 0 06/21/2017 at Unknown time ??? DILTiazem (CARDIZEM CD) 240 mg Capsule, Sust. Release 24 hr Take 1 capsule by mouth daily. 06/21/2017 at Unknown time ??? ferrous gluconate 324 mg (37.5 mg iron) Tablet Take 324 mg by mouth daily. 06/21/2017 at Unknown time ??? fluoxetine (PROZAC) 40 mg capsule daily. 06/22/2017 at 800 ??? KLOR-CON M20 20 mEq extended release tablet 2 times daily. 06/21/2017 at Unknown time ??? LORazepam (ATIVAN) 0.5 mg Tablet Take 1 tablet by mouth every 6 hours as needed for Anxiety. 30tablet 0 More than a month at Unknown time ??? prochlorperazine (COMPAZINE) 10 mg Tablet Take 1 tablet by mouth every 6 hours as needed for Nausea. 30 tablet 0 More than a month at Unknown time ??? ondansetron (ZOFRAN) 4 mg Tablet Take 1 tablet by mouth every 8 hours as needed for Nausea. 20 tablet 0 More than a month at Unknown time ??? silver sulfADIAZINE (SILVADENE) 1 % Cream Apply topically 2 times daily. 50 g 0 Taking at Unknown time ??? triamcinolone (ARISTOCORT) 0.5 % Cream Apply topically 3 times daily. Taking at Unknown time ??? acetaminophen (TYLENOL) 325 mg Tablet Take 2 tablets by mouth every 4 hours as needed for Pain.Taking at Unknown time ??? clobetasol (TEMOVATE) 0.05 % Cream Apply to affected areas on knees, elbows and hands twice daily for two week cycles as needed. 60 g 3 Taking at Unknown time Vitals: Last value Temperature Temp: 36.9 ??C (98.4 ??F) Heart Rate Heart Rate: 70 Blood Pressure BP: (!) 146/94 Respiratory Rate Resp: 18 SpO2 SpO2: 98 % Physical Exam: General: resting comfortably in no acute distress. Neuro: Awake, alert, responds to questions appropriately, CN II-XII grossly intact, moving all fourextremities spontaneously. CV: Regular rate Abd: Soft, nontender. Small area of open granulating tissue at the umbilicus Pulm: Normal effort, no respiratory distress on RA Chest: Open area of granulating tissue is present at the left nipple. A YG drain exits laterally from the left axilla with serous output. Skin: warm, dry. Assessment: Wendy Sandoval ( ) is a 51 y.o. female who presents for I&D Left breast today. Patient appears fit for surgery. The details, alternatives, risks, and benefits of the procedure were reviewed, and the patient wishes to proceed. Risks include but are not limited to pain, infection, bleeding, need for additional procedures, delayed wound healing, scarring, poor cosmetic result. Informed consent was obtained, she understands and wishes to proceed. All questions were answered to the patient's satisfaction. Plan: - proceed to OR for planned procedure Khris Castro MD 06/22/2017 4:06 PM documented in this encounter Miscellaneous Notes * Op Note - Mali Lakhani MD - 06/22/2017 7:26 PM EDT [facility] [place]ative [place] Patient Name: Wendy Sandoval : [id number] MR#: [id number] Case Date: 06/22/2017 Surgeon: Surgeon(s) and Role: * Mali Lakhani MD - Primary * Yo Krueger MD Preoperative diagnosis: left breast wound Postoperative diagnosis: left breast wound Procedure(s) (LRB): DEBRIDEMENT SKIN AND SUBCU, BREAST (WRVU 1.01) REVISION OF RECONSTRUCTED BREAST (WRVU 10.41) (Left) Anesthesia: General Estimated Blood Loss: 5 ml Specimens removed during surgery: None Drains: Surgical Closure: Primary Closure - closure of ALL tissue levels during the original surgery regardless of wires, wickes, drains, or other devices extruding through the incision Disposition: awakened from anesthesia, extubated and taken to the recovery room in a stable condition, having suffered no apparent untoward event. Condition: doing well without problems (Please see the Surgical Encounter Summary for any Implant and Specimen details pertinent to this patient.) HPI/Surgical Indications: 51 year old female with small wound healing area along the left mastectomy incision. We offered her excision of the wound and re- closure. She agreed, electing to proceed. Procedure Description: The patient was identified and marked in the preoperative holding area. Surgical plan was reviewed, she understood the potential risks and complications, and elected to proceed. The patient was brought to the operating room placed on the operating room table in the supine position. Anesthetic monitors and SCDs were applied. After induction of general anesthesia the patient was intubated orally and maintained on general anesthesia throughout the remainder of the case. The chest breasts and abdomen were prepped and draped in a standard sterile fashion. Patient's indwellingleft axillary drain was removed prior to proper prepping and draping. The operation began by infiltrating local anesthesia in and around the left breast in the area of the biliary wound. 50 cc of fluid was removed from the left tissue global logistics manager. This leaves 450 cc in the left tissue global logistics manager and 500cc on the right side. Next the wound was excised through skin and subcuticular tissue and capsule. Hemostasis was achieved with electrocautery. The wound and the capsule and device were irrigated copiously. There is no sign of active infection or purulent collection. We performed reclosure of the wound in a multilayered fashion with 2-0 Vicryl for capsular and deep sutures and 4-0 Prolene for skin in both the interrupted horizontal mattress and simple fashion. Xeroform and bacitracin was applied across the wound margins followed by typical over dressing. We performed some debridement of nonviable aspects of the umbilicus with sharp scissors in an excisional fashion over an area of 2 cm??. The wound appeared clean after irrigation, the umbilical remnant was then packed with a saline dampened gauze and a Mepilex over dressing was applied. Mepilex was applied over the drain site as well. The drapes were taken down and the patient was weaned from anesthesia and extubated in the operating room. She was transitioned to her or stretcher and transported to the postanesthesia care unit whereshe was reported to be stable and breathing spontaneously. There were no apparent complications to the procedure the patient tolerated the procedure well. All sponge and needle counts were reported as correct by nursing staff at the end of the case. Infection Bundle used? No Attestation: Case Date: 06/22/2017 I performed this procedure without the involvement of a resident. MALI LAKHANI MD 06/25/2017 * Brief Op Note - Mali Lakhani MD - 06/22/2017 7:26 PM EDT Brief Operative Note Patient Name: Wendy Sandoval : [id number] MR#: [id number] Case Date: 06/22/2017 Surgeon: Surgeon(s) and Role: * Mali Lakhani MD - Primary * Yo Krueger MD Preoperative diagnosis: left breast wound Postoperative diagnosis: left breast wound Procedure(s) (LRB): DEBRIDEMENT SKIN AND SUBCU, BREAST (WRVU 1.01) REVISION OF RECONSTRUCTED BREAST (WRVU 10.41) (Left) Anesthesia: General Findings: left breast wound Complications: none apparent Intake: 1 liter Intraprocedure Crystalloid Total None Transfusion No data found. Output: Estimated Blood Loss: 5 ml Urine Output:: (no blood products) Other Output: (no other output recorded) Drains: none Specimens removed during surgery: None Disposition: awakened from anesthesia, extubated and taken to the recovery room in a stable condition, having suffered no apparent untoward event. Condition: doing well without problems Attestation: Case Date: 06/22/2017 I performed this procedure without the involvement of a resident. (Please see the Surgical Encounter Summary for any Implant and Specimen details pertinent to this patient.) documented in this encounter Plan of Treatment Upcoming Encounters Date Type Department Care Team (Late st Contact Info) Description 01/22/2024 10:30 AM EST Appointment Mammography/[place] [address] Ladi Mendosa MD [facility] [place]ATOLOGY/[place] [address] 01/30/2024 11:30 AM EST Office Visit Dermatology at [facility] [address] [place] [address] Nilda Luis MD [facility] [address] [place] [address] 02/15/2024 9:30 AM EST [place] [phone] [place] [address] documented as of this encounter Procedures Procedure Name Priority Date/Time Associated Diagnosis Comments REVISION OF RECONSTRUCTED BREAST (WRVU 11.17) Yes 06/22/2017 4:44 PM EDT left breast wound DEBRIDEMENT SKIN AND SUBCU, BREAST (WRVU 1.01) Yes 06/22/2017 4:44 PM EDT left breast wound documented in this encounter Visit Diagnoses Not on filedocumented in this encounter Administered Medications Inactive Administered Medications - up to 3 most recent administrations Medication Order MAR Action Action Date Dose Rate Site acetaminophen (TYLENOL) tablet 1,000 mg 1,000 mg, Oral, EVERY 6 HOURS PRN, Starting on Sun06/22/17 at 0559, Until Sun06/22/17 at 2126, Pain, Maximum dose of acetaminophen is 4000 mg from all sources in 24 hours., Routine Given 06/22/2017 7:00 PM EDT 1,000 mg oxyCODONE (ROXICODONE) immediate release tablet 5 mg 5 mg, Oral, EVERY 4 HOURS PRN, Starting on Sun06/22/17 at 0559, Until Sun06/22/17 at 2126, Pain, Routine documented in this encounter Active and Recently Administered Medications Times are shown in EDT. Scheduled Medication Order 06/20/2017 06/21/2017 06/22/2017 clindamycin (CLEOCIN) 600mg in dextrose 5% 50mL (COMPLETED) 600 mg, Intravenous, ONCE, 1 dose, On Sun06/22/17 at 1600, Administer over 20 Minutes, Day of Surgery (Day of Procedure), Indication for (Active or Suspected): Prophylaxis 4052 (Given - Provid er: Thang Scott CRNA) Continuous Medication Order 06/20/2017 06/21/2017 06/22/2017 lactated Ringers infusion 1,000 mL (CANCELED) 1,000 mL, at 100 mL/hr, Intravenous, CONTINUOUS, Starting on Sun06/22/17 at 1630, Until Sun06/22/17 at 1919, Day of Surgery (Day of Procedure) 1624 (New Bag - Prov ider: Thang Scott CRNA)1740 (Anesthesia Volume Adjustment - Provider: Thang Scott CRNA) PRN Medication Order 06/20/2017 06/21/2017 06/22/2017 acetaminophen (TYLENOL) tablet 1,000 mg 1,000 mg, Oral, EVERY 6 HOURS PRN, Starting on Sun06/22/17 at 0559, Until Sun06/22/17 at 2126, Pain, Maximum dose of acetaminophen is 4000 mg from all sources in 24 hours., Routine 1900 (Given - Provid er: Carrie Ahumada RN) lidocaine-EPINEPHrine 1 %-1:200,000 injection (CANCELED) ONCE PRN, Starting on Sun06/22/17 at 1714, Until Sun06/22/17 at 2126, Intra-Operative (Intra-Procedure), Routine 1714 (Given - Provid er: Mali Lakhani MD - Comment: 1 :100,000) oxyCODONE (ROXICODONE) immediate release tablet 5 mg 5 mg, Oral, EVERY 4 HOURS PRN, Starting on Sun06/22/17 at 0559, Until Sun06/22/17 at 2126, Pain, Routine documented in this encounter Care Teams Mushroom Growing Supervisor Relationship Specialty Start Date End Date Trinh Coates MD [address] [place] [address] PCP - General 01/11/10 documented as of this encounter
--- OUTSIDE RECORDS SUMMARY | 2023-09-07 11:32 | XMS_ITS | Encounter Summary ---
[place] [address] Care Team Providers Care Agent Name Role Phone Trinh Coates MD Primary Care Provider [phone] Encounter Details Date Type Department Care Team (Late Contact Info) Description 06/04/2017 Telephone Radiation Oncology at [address] [phone] Mayda Calvert RN Social History [...] Telephone Encounter - Mayda Calvert RN - 06/04/2017 9:30 AM EDT Telephone call to Jolene Azevedo APRN to let her know that I noted cross reaction alert when adding keflex to medication list. I spoke with nurse Gerri who took this information and advised that patient has previously tolerated keflex. Dr. Choi updated with this note. documented in this encounter Plan of Treatment Upcoming Encounters Date Type Department Care Team (Late Contact Info) Description 01/22/2024 10:30 AM EST Appointment Mammography/DXA at [place] [phone] Ladi Mendosa MD [facility] HEMATOLOGY/[place] [address] 01/30/2024 11:30 AM EST Office Visit Dermatology at [facility] [address] [place] [phone] Nilda Luis MD [facility] [address] [place] [address] 02/15/2024 9:30 AM EST Appointment Radiology at [place] [phone] [place] [address] documented as of this encounter Visit Diagnoses Not on filedocumented in this encounter Care Teams Agent Relationship Specialty Start Date End Date Trinh Coates MD [facility] [address] [place] [address] PCP - General 01/11/10 documented as of this encounter
--- OUTSIDE RECORDS SUMMARY | 2023-09-07 11:32 | XMS_ITS | Encounter Summary ---
Author Organization [facility] [place] [address] Care Team Providers Care Electric Wheelchair Repairer Name Role Phone Trinh Coates MD Primary Care Provider [phone] Encounter Details Date Type Department Care Team (Late st Contact Info) Description 07/02/2017 [place] [phone] Kaveh Whiteside MD [facility] [place] [address] Social History Tobacco Use Types Packs/Day Years [...] encounter Miscellaneous Notes * Telephone Encounter - Kaveh Whiteside MD - 07/02/2017 6:46 AM EDT Ms Sandoval called last night from [place]. She had noted some swelling to the breast, and yesterdaya small opening developed and she drained what sounds like a sterile seroma from the breast. We discussed bandage application to the area, warning signs for infection and application of bacitracin tothe wound. She will come to clinic on . She is flying back today. documented in this encounter Plan of Treatment Upcoming Encounters Date Type Department Care Team (Late st Contact Info) Description 01/22/2024 10:30 AM EST Appointment Mammography/DXA at [place] [phone] Ladi Mendosa MD [facility] HEMATOLOGY/[place] [address] 01/30/2024 11:30 AM EST Office Visit Dermatology at [place] [address] [place] [phone] Nilda Luis MD [facility] [address] [place] [address] 02/15/2024 9:30 AM EST Appointment Radiology at [place] [phone] [place] [address] documented as of this encounter Visit Diagnoses Not on filedocumented in this encounter Care Teams Electric Wheelchair Repairer Relationship Specialty Start Date End Date Trinh Coates MD [address] [place] [address] PCP - General 01/11/10 documented as of this encounter
--- OUTSIDE RECORDS SUMMARY | 2023-09-07 11:32 | XMS_ITS | Encounter Summary ---
Author Organization [facility] Address [facility] [place] [address] Care Team Providers Care Radio Repairer Domestic Name Role Phone Trinh Coates MD Primary Care Provider [phone] Reason for Visit * Auth/Cert Specialty Diagnoses [...] Expiration Date Visits Re quested Visits Authorized [id number] 1 1 Encounter Details Date Type Department Care Team (Late st Contact Info) Description 06/22/2017 4:44 PM EDT - 06/22/2017 6:12 PM EDT Surgery [place] [phone] Mali Lakhani MD [facility] [place] [address] REVISION OF RECONSTRUCTED BREAST (WRVU 11.17) Social History Tobacco Use Types Packs/Day Years [...] Sign Reading Time Taken Comments Blood Pressure 154/88 06/22/2017 6:00 PM EDT Pulse 70 06/22/2017 4:00 PM EDT Temperature 36.8 ??C (98.2 ??F) 06/22/2017 5:49 PM ED T Respiratory Rate 18 06/22/2017 4:00 PM EDT Oxygen Saturation 99% 06/22/2017 6:00 PM EDT Inhaled Oxygen Concentration - - [...] office hours: Sunday - Sunday 8am-5pm call [phone]. On weekends or after hours call [phone] and ask the data entry operator to page the plastic surgery resident foundation drill operator helper. CONTACT INFORMATION: During office hours (Sunday through Sunday 8 am to 5 pm): Call [phone]. On weekends or after hours: Call [phone] and ask the data entry operator to speak to the Plastic Surgery Resident on-call. FOLLOW-UP APPOINTMENTS: Your follow-up has been scheduled: Future Appointments Date Time Provider Department Center 06/26/2017 10:00 AM Jolene Azevedo APRN [facility] 4 [facility] 07/03/2017 12:00 PM [facility] IR ROOM 2 IR [facility] 07/05/2017 8:45 AM LABORATORY, TECH [facility] 3K [facility] 07/05/2017 10:00 AM Gustavo Mota MD [facility] Hem Onc [facility] 07/05/2017 11:30 AM [facility] INFUSION THERAPY [facility] 10/31/2017 1:00 PM Corine Barron, [facility] STJ Hem Off [facility] documented in this encounter Medications at [...] of Surgery History and Physical HPI: Wendy Sandoval ( ) is a 51 [...] Lakhani MD - 06/22/2017 7:26 PM EDT [facility] Operative Note Patient Name: Wendy Sandoval : [id number] MR#: [id number] Case Date: 06/22/2017 Surgeon: Surgeon(s) and Role: [...] fluid was removed from the left tissue system administration advisor. This leaves 450 cc in the left tissue system administration advisor and 500cc on the right side. Next [...] Operative Note Patient Name: Wendy Sandoval : [id number] MR#: [id number] Case Date: 06/22/2017 Surgeon: Surgeon(s) and Role: [...] 01/22/2024 10:30 AM EST Appointment Mammography/[place] [address] Ladi Mendosa MD [facility] HEMATOLOGY/[place] [address] 01/30/2024 11:30 AM EST Office Visit Dermatology at [facility] [address] [place] [address] Nilda Luis MD [facility] [address] [place] [address] 02/15/2024 9:30 AM [place] [phone] [place] [address] documented as of this encounter Procedures Procedure [...] Given 06/22/2017 7:00 PM EDT 1,000 mg lidocaine-EPINEPHrine 1 %-1:200,000 injection ONCE PRN, Starting on Sun06/22/17 at 1714, Until Sun06/22/17 at 2126, Intra-Operative (Intra-Procedure), Routine Given 06/22/2017 5:14 PM EDT 10 mLs 19- Surgical Site oxyCODONE (ROXICODONE) immediate release tablet 5 mg [...] Procedure), Indication for (Active or Suspected): Prophylaxis 1653 (Given - Provid er: Thang Scott CRNA) [...] Routine documented in this encounter Care Teams Radio Repairer Domestic Relationship Specialty Start Date End Date Trinh Coates MD [address] [place] [address] PCP - General 01/11/10 documented as of this encounter
--- OUTSIDE RECORDS SUMMARY | 2023-09-07 11:32 | XMS_ITS | Encounter Summary ---
Author Organization [facility] Address [facility] [place] [address] Care Team Providers Care Customer Experience Strategist Name Role Phone Trinh Coates MD Primary Care Provider [phone] Reason for Visit * Auth/Cert Specialty Diagnoses [...] Expiration Date Visits Re quested Visits Authorized [id number] 1 1 Encounter Details Date Type Department Care Team (Late st Contact Info) Description 06/22/2017 4:42 PM EDT Anesthesia [place] [address] Leola Anguiano MD [facility] [place] [address] Fermin Pinon, PLANT DIRECTOR [place] [address] Anesthesia Record Procedure Summary Procedure Name Responsible Anesthesiologist Anesthesia Start Time Anesthesia Stop Time DEBRIDEMENT SKIN AND SUBCU, BREAST (WRVU 1.01) (Abdomen) Leola Anguiano MD 06/22/17 1642 06/22/17 1748 Events Date Time Event Comment 06/22/2017 1602 1642 AN Verify 1642 Start 1646 An Start Data 1650 An Induction 1651 An Intubation 1653 Anesthesia Ready 1702 Procedure Start 1734 Procedure Stop 1735 Extubation/LMA Out 1740 an stop data 1747 Recovery or ICU Handoff Adriana ent care was transferred to the destination unit staff after review of the patient's medical history, current anesthetic/surgical status and plan, according to the Provider Handoff Checklist. 1748 Stop Meds Name Total Midazolam 2 mg fentaNYL 100 mcg IV Lidocaine 40 mg Propofol 130 mg PHENYLephrine 120 mcg ePHEDrine 5 mg Ondansetron 8 mg Dexamethasone 8 mg clindamycin (CLEOCIN) 600mg in dextrose 5% 50mL 600 mg lactated Ringers infusion 1,000 mL 500 m L * Agents Name O2 Air N2O Sevoflurane (et) * Blood No blood administrations on file. Lines, Drains, and Airways Type Details Placement Removal Incision 04/26/17; 0855; abdomen; 09/06/17; 1312 04/26/17 0855 by Rochelle Melendez RN 09/06/17 1312 by Joyce Qureshi RN Incision 04/26/17; 1027; [address]; 09/06/17; 1312 04/26/17 1027 by Rochelle Melendez RN 09/06/17 1312 by Joyce Qureshi RN Incision 04/26/17; 1027; [address]; 09/06/17; 1312 04/26/17 1027 by Rochelle Melendez RN 09/06/17 1312 by Joyce Qureshi RN Drain/Device Site 04/26/17; 1930; Righ t; abdomen; collapsible closed device; Sterile technique, Sterile prep and drape; 19Fr luis drain.; 2; 06/22/17; 1716 04/26/17 1930 by Rochelle Melendez RN 06/22/17 1716 by Vandana Ba RN Wound 05/14/17; 1235; nipple(s); 09/06/17; 13105/14/17 1235 by Darcy García RN 09/06/17 1312 by Joyce Qureshi RN (RETIRED) Peripheral IV Line - Single Lumen 06/06/17; 1050; median vein (underside of arm), right; rozk-fav-rbedhi catheter system; 24 gauge, 3/4 in length; Cosme Martin RN; distraction, intradermal injection; 0; 09/06/17; 131106/06/17 1050 by Loida Mcelroy RN 09/06/17 1312 by Joyce Qureshi RN Incision 06/06/17; 1156; axil la; laparoscopic puncture; R breast drain site; 09/06/17; 131106/06/17 1156 by Loida Mcelroy RN 09/06/17 1312 by Joyce Qureshi RN Incision 06/22/17; breast; 09/06/17; 131106/22/17 0000 by Vandana Ba RN 09/06/17 1312 by Joyce Qureshi RN (RETIRED) Peripheral IV Line - Single Lumen 06/22/17; 1631; median cubital vein (antecubital fossa), right; wkjz-pwi-jwwpjj catheter system; 20 gauge, 1 in length; Natalya Murillo RN; distraction, intradermal injection, tolerated well, appears comfortable; 1; metacarpal vein (top of hand), right; 06/22/17; 192006/22/17 1631 by Natalya Murillo RN 06/22/171920 by Carrie Ahumada RN Supraglottic Mask Ventilation: Ea sy (1); LMA Type: iGel; LMA Size: 4; Removal Date: 06/22/17; Removal Time: 173406/22/171655 by Thang Scott CRNA 06/22/171734 by Thang Scott CRNA documented in this encounter Social History Tobacco [...] OR Notes * Anesthesia Postprocedure Evaluation - Leola Anguiano MD - 06/22/2017 6:28 PM EDT [facility] Department of Anesthesiology Post-procedure Note Patient: Wendy Sandoval Procedure Summary Date Anesthesia Start Anesthesia Stop Room / Location 06/22/17 1642 1748 [facility] OR [facility] MAIN OR Procedure Diagnosis Surgeon Responsible Provider DEBRIDEMENT SKIN AND SUBCU, BREAST (WRVU 1.01) (Abdomen); REVISION OF RECONSTRUCTED BREAST (WRVU 10.41) (Left Breast) (left breast wound ) Andre Gimenez MD Burchman, Corey A, MD All Anesthesia Providers: Anesthesiologist: Leola Anguiano MD PLANT DIRECTOR: Thang Scott CRNA Most Recent Vitals: 06/22/17 1815 BP: (!) 143/102 Pulse: Resp: Temp: SpO2: 96% Pain 0 (06/22/17 1749) Patient Location: PACU/[facility] Level of Consciousness: Awake and Alert Pain Management: Satisfactory Analgesia PONV: None Cardiovascular Status: At Baseline and Hemodynamically Stable Respiratory Status: At Baseline and Room Air Postoperative Fluid Status: Intravascular EUvolemia Possible Anesthetic Complications: NONE apparent at time of evaluation Final Primary Anesthesia Type: General (The anesthetic type performed was the same as planned.) Comments: LEOLA ANGUIANO MD * Anesthesia Preprocedure Evaluation - Leola Anguiano MD - 06/22/2017 4:00 PM EDT Pre-Anesthesia Evaluation for: Wendy Sandoval a 51 y.o. female. Procedure(s): Debridement/revision s/p Reconstruction L breast Patient Active Problem List Diagnosis ??? Surgery follow-up ??? Abdominal wound dehiscence [...] LARYNGEAL performed by Valentina Lucas MD at [facility] OR ??? PRO BREAST RECONSTRUC W FREE FLAP Bilateral 04/26/2017 @BREAST RECONSTRUCTION W/ FREE FLAP, SUSAN (WRVU 42.58) [facility] ??? PRO BREAST RECONSTRUC W TISS EXPANDR Bilateral 04/26/2017 BREAST RECONSTRUCTION, IMMEDIATE OR DELAYED, W/ TISSUE BLIND LACER, INCLUDING SUBSEQUENT EXPANSION (WRVU 18.5) performed by Andre Gimenez MD at [facility] OR ??? PRO EXPLORE PARATHYROID GLANDS N/A 11/02/2015 PARATHYROIDECTOMY OR EXPLORATION OF PARATHYROID(S) performed by Valentina Lucas MD at [facility] OR ? ? PRO FULL THICK GRFT TRUNK <20 SQCM Bilateral 04/26/2017 FTSG, FREE, DIR CLOSE DONOR SITE, TRUNK, 20 SQ CM OR LESS (WRVU 9.15) performed by Andre Gimenez MD at [facility] OR ??? PRO MASTECTOMY, SIMPLE, COMPLETE Bilateral 04/26/2017 MASTECTOMY, SIMPLE, COMPLETE-SUSAN (WRVU 15.85) performed by Jolie Menendez MD at [facility] OR ??? PRO PARTIAL REMOVAL OF RIB Bilateral 04/26/2017 EXCISION OF RIB, PARTIAL (WRVU 7.26) performed by Andre Gimenez MD at [facility] OR ??? PRO REMOVE ARMPITS LYMPH NODES COMPLT Left 04/26/2017 LYMPHADENECTOMY, AXILLARY, COMPLETE (WRVU 13.87) performed by Jolie Menendez MD at [facility] OR ??? PRO THYMECTOMY, TRANSCERVICAL N/A 11/02/2015 THYMECTOMY, TRANSCERVICAL APPROACH performed by Valentina Lucas MD at [facility] MAIN OR ??? SHOULDER SURGERY Left ??? UMBILICAL HERNIA REPAIR Social History Substance Use Topics ??? Smoking status: Former Smoker ??? Smokeless tobacco: Never Used ??? Alcohol use Yes Comment: socially History Drug Use No Allergies Allergen Reactions ??? Pcn [Penicillins] ??? Zoloft [Sertraline] PSORIASIS FLARE Medications: MAR and/or home medications have been reviewed. Physical Exam: There were no vitals filed for this visit. There is no height or weight on file to calculate BMI. Airway Assessment: Mallampati: II TM distance: >3 FB Neck ROM: full Cardiovascular Assessment: cardiovascular exam normal Pulmonary Assessment: pulmonary exam normal Dental Assessment: Misc Assessment: IV access: Peripheral line Anesthesia Plan: ASA 3 general, with a(n) intravenous induction 51 yo female presenting for debridement, revision L Breast Reconstruction revision S/p bilateral mastectomy and breast reconstruction with free flap. History significant for htn, hld, JACQUELYN, overweight, hypothyroidism, and s/p parathyroidectomy. Plan for GA w/LMA Region - Other Informed Consent: Anesthetic plan and risks discussed with patient. Plan discussed with PLANT DIRECTOR. PAT Staff Note documented in this encounter Plan of Treatment Upcoming Encounters Date Type Department Care Team (Late st Contact Info) Description 01/22/2024 10:30 AM EST Appointment Mammography/[place] [address] Ladi Mendosa MD [facility] HEMATOLOGY/[place] [address] 01/30/2024 11:30 AM EST Office Visit Dermatology at [facility] [address] [place] [phone] Nilda Luis MD [facility] DR [address] [address] 02/15/2024 9:30 AM EST [place] [address] [place] [address] documented as of this encounter Visit Diagnoses Not on filedocumented in this encounter Administered Medications Inactive Administered Medications - up to 3 most recent administrations Medication Order MAR Action Action Date Dose Rate Site clindamycin (CLEOCIN) 600mg in dextrose 5% 50mL 600 mg, Intravenous, ONCE, 1 dose, On Sun06/22/17 at 1600, Administer over 20 Minutes, Day of Surgery (Day of Procedure), Indication for (Active or Suspected): Prophylaxis Given 06/22/2017 4:53 PM EDT 600 mg dexamethasone (DECADRON) injection PRN, Starting on Sun06/22/17 at 1658, Until Sun06/22/17 at 1750, Anesthesia Intra-op, Routine Given 06/22/2017 4:58 PM EDT 8 mg ePHEDrine 5 mg/mL multi-dose injection PRN, Starting on Sun06/22/17 at 1713, Until Sun06/22/17 at 1750, Anesthesia Intra-op, Routine Given 06/22/2017 5:13 PM EDT 5 mg fentaNYL 50 mcg/mL multi-dose injection PRN, Starting on Sun06/22/17 at 1643, Until Sun06/22/17 at 1750, Pain, Anesthesia Intra-op, Routine Given 06/22/2017 5:40 PM EDT 25 mcg Given 06/22/2017 5:37 PM EDT 25 mcg Given 06/22/2017 4:50 PM EDT 25 mcg lactated Ringers infusion 1,000 mL 1,000 mL, at 100 mL/hr, Intravenous, CONTINUOUS, Starting on Sun06/22/17 at 1630, Until Sun06/22/17 at 1919, Day of Surgery (Day of Procedure) New Bag 06/22/2017 4:24 PM EDT lidocaine (PF) (XYLOCAINE) 100 mg/5 mL (2 %) injection PRN, Starting on Sun06/22/17 at 1649, Until Sun06/22/17 at 1750, Anesthesia Intra-op, Routine Given 06/22/2017 4:49 PM EDT 40 mg midazolam (PF) (VERSED) 1 mg/mL multi-dose injection PRN, Starting on Sun06/22/17 at 1643, Until Sun06/22/17 at 1750, Sleep, Anesthesia Intra-op, Routine Given 06/22/2017 4:43 PM EDT 2 mg ondansetron (ZOFRAN) injection PRN, Starting on Sun06/22/17 at 1659, Until Sun06/22/17 at 1750, Nausea, Anesthesia Intra-op, Routine Given 06/22/2017 4:59 PM EDT 8 mg PHENYLephrine in NS (PF) (LENA-SYNEPHRINE) 0.8 mg/10 mL (80 mcg/mL) multi-dose injection Syrg PRN, Starting on Sun06/22/17 at 1648, Until Sun06/22/17 at 1750, Anesthesia Intra-op, Routine Given 06/22/2017 5:13 PM EDT 40 mcg Given 06/22/2017 4:48 PM EDT 80 mcg propofol (DIPRIVAN) 10 mg/mL bolus injection (Anesthesia) PRN, Starting on Sun06/22/17 at 1650, Until Sun06/22/17 at 1750, Anesthesia Intra-op Given 06/22/2017 4:50 PM EDT 130 mg documented in this encounter Care Teams Customer Experience Strategist Relationship Specialty Start Date End Date Trinh Coates MD [address] [place] [address] PCP - General 01/11/10 documented as of this encounter
--- OUTSIDE RECORDS SUMMARY | 2023-09-07 11:32 | XMS_ITS | Encounter Summary ---
Author Organization [facility] Address [facility] [facility] [place] [address] Care Team Providers Care Mine Safety Manager Name Role Phone Trinh Coates MD Primary Care Provider Encounter Details Date Type Department Care Team (Latest Contact Info) Description 06/11/2017 10:15 AM EDT Laboratory Appointment Lab [address] [place] [phone] Postoperative wound infection, initial encounter Social History Tobacco Use Types [...] 01/22/2024 10:30 AM EST Appointment Mammography/[place] [address] Ladi Mendosa MD [facility] HEMATOLOGY/[place] [address] 01/30/2024 11:30 AM EST Office Visit Dermatology at [facility] [address] [place] [phone] Nilda Luis MD [facility] [place] [address] 02/15/2024 9:30 AM EST [place] [phone] [place] [address] documented as of this encounter Procedures Procedure Name Priority Date/Time Associated Diagnosis Comments HEMOGRAM Routine 06/11/2017 9:44 AM EDT Postoperative wound infection, initial encounter DIFFERENTIAL, AUTOMATED Routine 06/11/2017 9:44 AM EDT Postoperative wound infection, initial encounter CBC (WITH DIFF) Routine 06/11/2017 9:44 AM EDT Postoperative wound infection, initial encounter documented in this encounter Results * (ABNORMAL) Differential, Automated (06/11/2017 9:44 AM EDT) Neutrophils % 66.3 % [facility] Neutr Abs (ANC) 7.86(H) 1.70 - 6.10 x10(3)/mc L [facility] Lymphocytes % 17.3 % [facility] Lymphocytes Abs 2.0 0.9 - 3.2 x10(3)/mc L [facility] Monocytes % 7.5 % [facility] Monocyte Abs 0.9 0.3 - 0.9 x10(3)/mc L [facility] Eosinophils % 6.8 % [facility] Eosinophils Abs 0.8(H) 0.0 - 0.4 x10(3)/mc L [facility] Basophils % 1.2 % [facility] Basophils Abs 0.1 0.0 - 0.1 x10(3)/mc L [facility] Immature Gran % 0.90 % [facility] Comment: Immature granulocytes(IG's)percentage and absolute count will include metamyelocytes, myelocytes, and promyelocytes. Blood smears from CBCs yielding IG's will be scanned manually for concordance. If this scan disagrees with the automated IG or if promyelocytes are noted, a manual differential will be performed. Nova Gran Abs 0.11(H) 0.00 - 0.04 x10(3)/mc L [facility] Blood specimen (specimen) 06/11/2017 9:44 AM EDT 06/11/2017 9:54 AM EDT Narrative Resulting Agency Comment Spec In Lab Yo Krueger MD HEMATOLOGY ORDERABLE S [facility] [place] [address] * (ABNORMAL) Hemogram (06/11/2017 9:44 AM EDT) WBC 11.9(H) 4.0 - 9.5 x10(3)/[facility]ORAT[facility] RBC 4.12 4.00 - 5.21 x10(6)/[facility] Hemoglobin 12.6 11.7 - 15.5 gm/dL [facility] Hematocrit 37.9 35.7 - 45.8 % [facility] MCV 92.0 82.6 - 94.4 [facility]AT[facility] MCH 30.6 27.1 - 32.0 pg [facility] MCHC 33.2 31.7 - 35.0 gm/dL [facility] Platelets 421(H) 145 - 357 x10(3)/[facility] LABORATORY RDWSD 43.7 37.0 - 46.0 [facility] RDWCV 13.0 11.5 - 14.1 % [facility] MPV 8.8 7.6 - 12.9 [facility] nRBC % Auto 0.0 % [facility] nRBC Abs Auto 0.000 0.000 - 0.000 x10(3)/[facility] Blood specimen (specimen) 06/11/2017 9:44 AM EDT 06/11/2017 9:54 AM EDT Narrative Resulting Agency Comment Spec In Lab Yo Krueger MD HEMATOLOGY ORDERABLE S [facility] [place] [phone] documented in this encounter Visit Diagnoses Diagnosis Postoperative wound infection, initial encounter documented in this encounter Care Teams Mine Safety Manager Relationship Specialty Start Date End Date Trinh Coates MD [address] [place] [address] PCP - General 01/11/10 documented as of this encounter
--- OUTSIDE RECORDS SUMMARY | 2023-09-07 11:32 | XMS_ITS | Encounter Summary ---
Author Organization [facility] Address [facility] [place] [address] Care Team Providers Care It Software Engineer Name Role Phone Trinh Coates MD Primary Care Provider [phone] Reason for Visit * Reason Comments Follow Up Surgery Encounter Details Date Type Department Care Team (Latest Contact Info) Description 06/06/2017 11:30 AM EDT Office Visit [place] [address] Yo Krueger MD [facility] [place] [address] Postoperative wound infection, initial encounter (Primary Dx) Social History Tobacco Use Types [...] as of this encounter Progress Notes * Yo Krueger MD - 06/06/2017 11:30 AM EDT Plastic Surgery Service Outpatient Progress Note Date of surgery: 04/26/17 Procedure(s): Bilateral mastectomies with attempted SALVADOR flaps, SALVADOR flaps debrided and TE expanderbreast reconstruction ([place] Artura??600 cc expanders placed bilaterally and filled??with 450 cc of methylene blue impregnated saline.) IE: Wendy returns today for evaluation following her IR appointment this morning. She presented to interventional radiology where her right breast drain was removed. Her left breast was examined for any undrained fluid collection and none were found. Therefore no new drain was placed in her current left breast drain was left in place. Her left breast and axilla continue to be tender however she has had no worsening of her tenderness, worsening swelling, cellulitis, fever, or other new complaints since yesterday. Physical Exam: General: Sitting on exam table, no acute distress Neuro: Awake, alert, responds to questions appropriately, CN II-XII grossly intact, moving all fourextremities spontaneously. CV: RRR. Pulm: Normal effort, no respiratory distress. Right breast: incisions clean dry and intact, no palpable fluid collection, no cellulitis, dressingover previous drain site Left breast: Slightly larger than right, incisions clean dry and intact, no cellulitis, no palpablefluid collection, overall slightly more firm than right breast indicative of possible soft tissue induration, drain with serous fluid and fibrinous output Abdomen: Necrotic umbilicus without signs of infection, appears to be jennifer in. Transverse abdominal incision opened in midline, appears to be jennifer and healing appropriately. No signs ofinfection. Labs: None Micro: None Antibiotics: Keflex since surgery Assessment: Wendy Sandoval is a 51 y.o. female s/p bilateral mastectomies with attempted SALVADOR flaps, SALVADOR flaps debrided and TE sweeping compound blender breast reconstruction ([place] Artura??600 cc expanders placed bilaterally and filled??with 450 cc of methylene blue impregnated saline.) Her postop course has been complicated by umbilical necrosis, abdominal wound delayed wound healing, high output drainage from bilateral breast drains, now with 2 days of left breast tenderness and new fibrinous drain output concerning for colonization/infection. She has no cellulitis is feeling otherwise well and does not have any sign of infection the last left breast aside from her tenderness and mild swelling. I discussed with her the possibility that if her left breast expanders injected and may need to be removed. Currently she has been taking Keflex since surgery. I discussed Wendy care with Dr. Damico at the time of her appointment. We will plan to change her antibiotics to Bactrim DS twice daily, send her to the lab for a CBC, and follow-up with Dr. Gimenez on Sunday. She has no cellulitis, systemic illness, or wound breakdown there does not appear to be an indication for urgent removal of the sweeping compound blender today, though it is a possibility that she will need this in the near future. I encouraged her to call the clinic or the on-call resident should she have worsening pain, increasing swelling orbreast asymmetry, redness of the skin, or change to her drain quality or quantity. Yo Krueger MD Plastic Surgery, PGY-4 06/06/2017 Addendum: WBC 12 without left shift, will have patient return to clinic Sunday for repeat CBC and drain check. If WBC increasing or worsening symptoms or signs of infection will admit for IV antibiotics. Discussed with Dr Gimenez. Addendum 06/07/2017 9:17 AM Patient called to say she is having n/v with the Bactrim. Rx for linezolid sent to her local pharamcy. F/u in clinic tomorrow. documented in this encounter Miscellaneous Notes * Addendum Note - Yo Krueger MD - 06/07/2017 9:18 AM EDTAddended by: YO KRUEGER on: 06/07/2017 09:18 AM Modules accepted: Orders * Addendum Note - Yo Krueger MD - 06/06/2017 7:16 PM EDTAddended by: YO KRUEGER on: 06/06/2017 07:16 PM Modules accepted: Orders documented in this encounter Plan of Treatment Upcoming Encounters Date Type Department Care Team (Late st Contact Info) Description 01/22/2024 10:30 AM EST Appointment Mammography/[place] [phone] Ladi Mendosa MD [facility] HEMATOLOGY/[place] [address] 01/30/2024 11:30 AM EST Office Visit Dermatology at [facility] [address] [place] [address] Nilda Luis MD [facility] DR [address] [place] [address] 02/15/2024 9:30 AM EST Appointment [place] [phone] [place] [address] documented as of this encounter Procedures Procedure Name Priority Date/Time Associated Diagnosis Comments HEMOGRAM Routine 06/06/2017 1:22 PM EDT Postoperative wound infection, initial encounter DIFFERENTIAL, AUTOMATED Routine 06/06/2017 1:22 PM EDT Postoperative wound infection, initial encounter CBC (WITH DIFF) Routine 06/06/2017 1:22 PM EDT Postoperative wound infection, initial encounter documented in this encounter Results * (ABNORMAL) Differential, Automated (06/06/2017 1:22 PM EDT) Neutrophils % 59.7 % [facility] Neutr Abs (ANC) 7.16(H) 1.70 - 6.10 x10(3)/mc L [facility] Lymphocytes % 21.1 % [facility] Lymphocytes Abs 2.5 0.9 - 3.2 x10(3)/mc L [facility] Monocytes % 9.8 % [facility] Monocyte Abs 1.2(H) 0.3 - 0.9 x10(3)/mc L [facility] Eosinophils % 7.3 % [facility] Eosinophils Abs 0.9(H) 0.0 - 0.4 x10(3)/mc L [facility] Basophils % 1.4 % [facility] Basophils Abs 0.2(H) 0.0 - 0.1 x10(3)/mc L [facility] Immature Gran % 0.70 % [facility] Comment: Immature granulocytes(IG's)percentage and absolute count will include metamyelocytes, myelocytes, and promyelocytes. Blood smears from CBCs yielding IG's will be scanned manually for concordance. If this scan disagrees with the automated IG or if promyelocytes are noted, a manual differential will be performed. Nova Gran Abs 0.08(H) 0.00 - 0.04 x10(3)/[facility] Blood specimen (specimen) 06/06/2017 1:22 PM EDT 06/06/2017 1:28 PM EDT Narrative Resulting Agency Comment Spec In Lab Yo Krueger MD HEMATOLOGY ORDERABLE S [facility] [place] [address] * (ABNORMAL) Hemogram (06/06/2017 1:22 PM EDT) WBC 12.0(H) 4.0 - 9.5 x10(3)/[facility] RBC 4.00 4.00 - 5.21 x10(6)/[facility] Hemoglobin 12.2 11.7 - 15.5 gm/dL [facility] Hematocrit 36.9 35.7 - 45.8 % [facility] MCV 92.3 82.6 - 94.4 fL [facility] MCH 30.5 27.1 - 32.0 pg [facility] MCHC 33.1 31.7 - 35.0 gm/dL [facility] Platelets 416(H) 145 - 357 x10(3)/[facility] RDWSD 43.5 37.0 - 46.0 fL [facility] RDWCV 12.9 11.5 - 14.1 % [facility] MPV 8.7 7.6 - 12.9 [facility] nRBC % Auto 0.0 % [facility] nRBC Abs Auto 0.000 0.000 - 0.000 x10(3)/mcL [facility] Blood specimen (specimen) 06/06/2017 1:22 PM EDT 06/06/2017 1:28 PM EDT Narrative Resulting Agency Comment Spec In Lab Yo Krueger MD HEMATOLOGY ORDERABLE S Performing Organization Address City/State/[facility] Co de Phone Number [facility] [place] [address] documented in this encounter Visit Diagnoses Diagnosis Postoperative wound infection, initial encounter- Primary documented in this encounter Care Teams It Software Engineer Relationship Specialty Start Date End Date Trinh Coates MD [facility] [address] [place] [address] PCP - General 01/11/10 documented as of this encounter
--- OUTSIDE RECORDS SUMMARY | 2023-09-07 11:32 | XMS_ITS | Encounter Summary ---
Author Organization [facility] Address [facility] [place] [address] Care Team Providers Care Drain Tiler Name Role Phone Trinh Coates MD Primary Care Provider [phone] Encounter Details Date Type Department Care Team (Latest Contact Info) Description 07/05/2017 9:00 AM EDT Laboratory Appointment Lab [address] [place] [phone] Malignant neoplasm of upper-outer quadrant of left [...] 01/22/2024 10:30 AM EST Appointment Mammography[place] [phone] Ladi Mendosa MD [facility] HEMATOLOGY/[place] [address] 01/30/2024 11:30 AM EST Office Visit Dermatology at [facility] [address] [place] [phone] Nilda Luis MD [facility] [address] [place] [address] 02/15/2024 9:30 AM EST [place] [phone] [place] [address] documented as of this encounter Procedures Procedure Name Priority Date/Time Associated Diagnosis Comments HEMOGRAM STAT 07/05/2017 8:44 AM EDT Malignant neoplasm of upper-outer quadrant of left breast in female, estrogen receptor positive DIFFERENTIAL, AUTOMATED STAT 07/05/2017 8:44 AM EDT Malignant neoplasm of upper-outer quadrant of left breast in female, estrogen receptor positive CBC (WITH DIFF) STAT 07/05/2017 8:44 AM EDT Malignant neoplasm of upper-outer quadrant of left breast in female, estrogen receptor positive COMPREHENSIVE METABOLIC PANEL (NON-FASTING) STAT 07/05/2017 8:44 AM EDT Malignant neoplasm of upper-outer quadrant of left breast in female, estrogen receptor positive documented in this encounter Results * (ABNORMAL) Differential, Automated (07/05/2017 8:44 AM EDT) Neutrophils % 73.6 % [facility] Neutr Abs (ANC) 9.66(H) 1.70 - 6.10 x10(3)/mc L [facility] Lymphocytes % 11.7 % [facility] Lymphocytes Abs 1.5 0.9 - 3.2 x10(3)/mc L [facility] Monocytes % 6.5 % [facility] Monocyte Abs 0.9 0.3 - 0.9 x10(3)/mc L [facility] Eosinophils % 5.9 % [facility] Eosinophils Abs 0.8(H) 0.0 - 0.4 x10(3)/mc L [facility] Basophils % 1.4 % [facility] Basophils Abs 0.2(H) 0.0 - 0.1 x10(3)/[facility] Immature Gran % 0.90 % [facility] Comment: Immature granulocytes(IG's)percentage and absolute count will include metamyelocytes, myelocytes, and promyelocytes. Blood smears from CBCs yielding IG's will be scanned manually for concordance. If this scan disagrees with the automated IG or if promyelocytes are noted, a manual differential will be performed. Nova Gran Abs 0.12(H) 0.00 - 0.04 x10(3)/[facility] Blood specimen (specimen) 07/05/2017 8:44 AM EDT 07/05/2017 8:51 AM EDT Narrative Resulting Agency Comment Spec In Lab Gustavo Mota MD HEMATOLOGY ORDERABLE S Performing Organization Address City/State/[facility] Co de Phone Number [facility] [place] [address] * (ABNORMAL) Hemogram (07/05/2017 8:44 AM EDT) WBC 13.2(H) 4.0 - 9.5 x10(3)/[facility] LABOR[facility] RBC 3.97(L) 4.00 - 5.21 x10(6)/[facility] Hemoglobin 12.2 11.7 - 15.5 gm/dL [facility] Hematocrit 36.9 35.7 - 45.8 % [facility] MCV 92.9 82.6 - 94.4 fL [facility] MCH 30.7 27.1 - 32.0 pg [facility] MCHC 33.1 31.7 - 35.0 gm/dL [facility] Platelets 414(H) 145 - 357 x10(3)/[facility] LABORATORY RDWSD 45.3 37.0 - 46.0 fL [facility] RDWCV 13.3 11.5 - 14.1 % [facility] MPV 8.6 7.6 - 12.9 fL [facility] nRBC % Auto 0.0 % [facility] nRBC Abs Auto 0.000 0.000 - 0.000 x10(3)/mcL [facility] Blood specimen (specimen) 07/05/2017 8:44 AM EDT 07/05/2017 8:51 AM EDT Narrative Resulting Agency Comment Spec In Lab Gustavo Mota MD HEMATOLOGY ORDERABLE S [facility] [place] [address] * (ABNORMAL) Comprehensive metabolic panel (non-fasting) (07/05/2017 8:44 AM EDT) Glucose Lvl 195 65 - 199 mg/dL [facility] Comment:Diabetes: >=200 mg/d L plus symptoms BUN 16 8 - 18 mg/dL [facility] Creatinine 0.92 0.70 - 1.20 mg/dL [facility] Sodium 141 135 - 145 mmol/L [facility] Potassium 3.1(L) 3.5 - 5.0 mmol/L [facility] Comment: Please note: ??Patients with WBC >100,000 may have falsely elevated Potassium levels. ??For accurate Potassium quantification in these patients send serum separator tube (gold top) for subsequent determinations. ??Contact the Clinical Chemistry Laboratory if there are any questions. Chloride 99 98 - 107 mmol/L [facility] CO2 25 22 - 31 mmol/L [facility] Anion Gap 17(H) 5 - 15 mmol/L [facility] Calcium 8.5 8.5 - 10.5 mg/dL [facility] Total Protein 6.7 6.1 - 8.0 gm/dL [facility] Albumin 3.6 3.2 - 5.2 gm/dL [facility] AST 16 0 - 30 unit/L [facility] ALT 21 0 - 30 unit/L [facility] Alk Phos 112(H) 40 - 104 unit/L [facility] Total Bilirubin 0.3 0.2 - 1.3 mg/dL [facility] Estimated GFR >60 >=60 [facility] Comment: The reported eGFR should be multiplied by 1.2 for patients. The MDRD is not an appropriate measure of renal function for patients with body mass extremes or in patients with acute kidney failure. http://Quanti[employer]ense/DHnkdep http://Quanti[employer]/DHMCnkf Blood specimen (specimen) 07/05/2017 8:44 AM EDT 07/05/2017 8:51 AM EDT Narrative Resulting Agency Comment Spec In Lab Gustavo Mota MD CHEMISTRY ORDERABLES [facility] [place] [address] documented in this encounter Visit Diagnoses Diagnosis Malignant neoplasm of upper-outer quadrant of left breast in female, estrogen receptor positive documented in this encounter Care Teams Drain Tiler Relationship Specialty Start Date End Date Trinh Coates MD [address] [place] [address] PCP - General 01/11/10 documented as of this encounter
--- OUTSIDE RECORDS SUMMARY | 2023-09-07 11:32 | XMS_ITS | Encounter Summary ---
Author Organization [facility] Address [facility] [place] [address] Care Team Providers Care Circulation Director Name Role Phone Trinh Coates MD Primary Care Provider [phone] Encounter Details Date Type Department Care Team (Late st Contact Info) Description 07/19/2017 Orders Only Hematology [place] [address] Sally Ren APRN [facility] [place] [place] [address] Malignant neoplasm of upper-outer quadrant of left [...] 01/22/2024 10:30 AM EST Appointment Mammography/[place] [address] Ladi Mendosa MD [facility] HEMATOLOGY/[place] [address] 01/30/2024 11:30 AM EST Office Visit Dermatology at [facility] [address] [place] [address] Nilda Luis MD [facility] DR [address] [place] [address] 02/15/2024 9:30 AM EST [place] [phone] [place] [address] documented as of this encounter Visit Diagnoses Diagnosis Malignant neoplasm of upper-outer quadrant of left breast in female, estrogen receptor positive documented in this encounter Care Teams Circulation Director Relationship Specialty Start Date End Date Trinh Coates MD [facility] [address] [facility] [address] [place] [address] PCP - General 01/11/10 documented as of this encounter
--- OUTSIDE RECORDS SUMMARY | 2023-09-07 11:32 | XMS_ITS | Encounter Summary ---
Author Organization [facility] Address [facility] [place] [address] Care Team Providers Care Red Lead Burner Name Role Phone Trinh Coates MD Primary Care Provider [phone] Encounter Details Date Type Department Care Team (Late st Contact Info) Description 07/04/2017 Telephone [place] [phone] Ann Marie Smalls Social History Tobacco Use Types Packs/Day Years [...] AM EST Appointment Mammography/[place] [phone] Ladi Mendosa MD [facility] HEMATOLOGY/[place] [address] 01/30/2024 11:30 AM EST Office Visit Dermatology at [facility] [address] [place] [phone] Nilda Luis MD [facility] [address] [place] [address] 02/15/2024 9:30 AM EST [place] [phone] [place] [address] documented as of this encounter Visit Diagnoses Not on filedocumented in this encounter Care Teams Red Lead Burner Relationship Specialty Start Date End Date Trinh Coates MD [address] [place] [address] PCP - General 01/11/10 documented as of this encounter
--- OUTSIDE RECORDS SUMMARY | 2023-09-07 11:32 | XMS_ITS | Encounter Summary ---
Author Organization [facility] Address [facility] [place] [address] Care Team Providers Care Dairy Feed Mixing Operator Name Role Phone Trinh Coates MD Primary Care Provider [phone] Encounter Details Date Type Department Care Team (Latest Contact Info) Description 07/03/2017 1:30 PM EDT - 07/03/2017 11:59 PM EDT Hospital [place] [address] Jolene Azevedo APRN [facility] [place] [address] Surgery follow-up Discharge Disposition: Home Social History [...] 10/31/2012 08/03/2017 documented as of this encounter Plan of Treatment Upcoming Encounters Date Type Department Care Team (Late st Contact Info) Description 01/22/2024 10:30 AM EST Appointment Mammography[place] [phone] Ladi Mendosa MD [facility] HEMATOLOGY/[place] [address] 01/30/2024 11:30 AM EST Office Visit Dermatology at [facility] [address] [place] [address] Nilda Luis MD [facility] [address] [place] [address] 02/15/2024 9:30 AM EST [place] [address] [place] [address] documented as of this encounter Procedures Procedure Name Priority Date/Time Associated Diagnosis Comments MAMMO BREAST US LIMITED LEFT Routine 07/03/2017 2:47 PM EDT Surgery follow-up documented in this encounter Results * US Breast Limited Left (07/03/2017 2:47 PM EDT) Anatomical Region Laterality Modality Breast Left Mammography Impressions 07/03/2017 4:24 PM EDT Decreased size of fluid surrounding the left breast implant. BI-RADS 2, benign findings. I have personally reviewed the image(s) and the residents interpretation and agree with the findings, Javier Shaffer at 07/03/2017 4:24 PM Narrative 07/03/2017 4:24 PM EDT EXAMINATION: US ??BREAST LIMITED LEFT CLINICAL HISTORY: left breast fluid collection s/p breast reconstruction TECHNIQUE: High-resolution ultrasound of the left breast was performed. COMPARISON: 06/26/2017 left breast ultrasound FINDINGS: A thin rim of fluid surrounds the left breast implant, decreased in size since 06/26/2017. The thickest portion of the fluid collection is seen in the retroareolar region where it measures a maximal depth of 6 mm. Jolene Azevedo APRN IMG MAMMO ORDERABLES documented in this encounter Visit Diagnoses Diagnosis Surgery follow-up Follow-up examination, following unspecified surgery documented in this encounter Care Teams Dairy Feed Mixing Operator Relationship Specialty Start Date End Date Trinh Coates MD [address] [place] [address] PCP - General 01/11/10 documented as of this encounter
--- OUTSIDE RECORDS SUMMARY | 2023-09-07 11:32 | XMS_ITS | Encounter Summary ---
[place] [address] Care Team Providers Care Store Operations Specialist Name Role Phone Trinh Coates MD Primary Care Provider [phone] Reason for Referral * Diagnostic Test (Routine) - Canceled Specialty Diagnoses / Procedures Referred By Diamante marin Referred To Contact Radiology Diagnoses Surgery follow-up Procedures IR Breast Drain Placement Jolene Azevedo APRN [facility] [place] [address] [place] [address] Referral ID Status Reason Start Date Expiration Date Visits Requested Visits Authorized [id number] Canceled Specialty Service Requested 07/03/2017 07/03/2018 1 1 Reason for Visit * Reason Comments Follow Up Surgery incision check, left breast, ? fluid Encounter Details Date Type Department Care Team (Latest Contact Info) Description 07/03/2017 8:00 AM EDT Clinical Support [place] [address] Surgery follow-up Social History Tobacco Use Types [...] - - Temperature 36.6 ??C (97.9 ??F) 07/03/2017 10:43 AM E DT Respiratory Rate - - Oxygen Saturation - - Inhaled Oxygen Concentration - - Weight - - Height - - Body Mass Index - - documented in this encounter Patient Instructions * Patient Instructions* Gerri Kendrick RN - 07/03/2017 8:00 AM EDT Patient Instructions: Go to ultrasound and get fluid aspirated from left breast with drain placement. Dressing instructions: apply thin layer of bacitracin to the left breast incision line for 2 days and then switch to Aquaphor. Wendy expressed understanding of instructions,and agrees with the plan of care. Follow up next week when Dr. Gimenez's in clinic or sooner for wound / incision check. documented in this encounter Progress Notes * Gerri Kendrick RN - 07/03/2017 8:00 AM EDT Reason for Visit: Postoperative Evaluation s/p Bilateral breast reconstruction with attempted SALVADOR flaps, eventual tissue lens and frames prescription clerk placement with Yasmine Bender??600 cc expanders placed bilaterally and filled??with 450 cc of methylene blue impregnated saline.) Complications: right??parietal and visceral pleural tear, arterial flap failure bilaterally. 04/26/[address] Gimenez POD # [id number] Wendy is here for an incision check.and swelling of Left breast. Patient states that on Sunday night breast filled up with fluid, she removed a long white string from the front of her incision lineand a little spout of fluid came out and was steady for about one minute. She spoke with our resident who stated that she needed to be seen today. Subjective: Wendy states she has no discomfort. Objective: Bruising: no left breast. Swelling: moderate left breast. Sutures not removed secondary to tension and inflammation,, incision well approximated, bacitracin applied after wound care wash. CONSTRUCTION SALES MANAGER Jolene Azevedo into evaluate the left breast, states that she would like the patient to go down toultrasound, have the fluid removed, cultured and a drain placed. Assessment: No signs of delayed healing, no erythema, fluid collection in the left breast. Incisions CDI. Plan: Go to ultrasound and get fluid aspirated from left breast with drain placement. Dressing instructions: apply thin layer of bacitracin to the left breast incision line for 2 days and then switch to Aquaphor. Wendy expressed understanding of instructions,and agrees with the plan of care. Follow up next week when Dr. Gimenez's in clinic or sooner for wound / incision check. documented in this encounter Plan of Treatment Upcoming Encounters Date Type Department Care Team (Late st Contact Info) Description 01/22/2024 10:30 AM EST Appointment Mammography/[place] [phone] Ladi Mendosa MD [facility] DR [place]ATOLOGY/[place] [address] 01/30/2024 11:30 AM EST Office Visit Dermatology at [address] [phone] Nilda Luis MD [facility] [address] [place] [address] 02/15/2024 9:30 AM EST [place] [phone] [place] [address] documented as of this encounter Results * IR Breast Drain Placement (09/06/2017 1:55 PM EDT) Anatomical Region Laterality Modality X-Ray Angiograph y Narrative 09/06/2017 4:00 PM EDT IR PROCEDURE NOTE Procedure: Left breast drain placement. Indication for Procedure: Per Norberto Toni ENGINE ASSEMBLY SUPERVISOR, Wendy Sandoval is a 52 y.o. female [...] U/S showed fluid surrounding the Left breast lens and frames prescription clerk as seen on the ??breast US from [...] and looped in the breast around the lens and frames prescription clerk under fluoroscopy, position within the collection confirmed [...] Impression: 1. ??Left breast drain placement, 8 Bulgarian. 2. ??320 cc of mildly cloudy pale yellow fluid aspirated, sample sent for labs. Resident/Fellow: ??Dr. Mcgovern. Attending: Dr. Carline Atkinson performed this procedure. ?? Jolene Azevedo APRN IMG IR ORDERABLES * US Breast Limited Left (07/03/2017 2:47 [...] Surgery follow-up Follow-up examination, following unspecified surgery Surgery follow-up Follow-up examination, following unspecified surgery Surgery follow-up Follow-up examination, following unspecified surgery documented in this encounter Care Teams Store Operations Specialist Relationship Specialty Start Date End Date Trinh Coates MD [address] [place] [address] PCP - General 01/11/10 documented as of this encounter
--- OUTSIDE RECORDS SUMMARY | 2023-09-07 11:32 | XMS_ITS | Encounter Summary ---
[place] [address] Care Team Providers Care Cot Assembler Name Role Phone Trinh Coates MD Primary Care Provider [phone] Reason for Referral * Diagnostic Test (Routine) - Closed Specialty Diagnoses / Procedures Referred By Contrenan t Referred To Contact Radiology Diagnoses Malignant neoplasm of female breast, unspecified estrogen receptor status, unspecified laterality, unspecified site of breast Procedures IR Drain Check/Change/Remove Diana Azevedo APRN [facility] [place] [address] [place] [address] Referral ID Status Reason Start Date Expiration Date V isits Requested Visits Authorized [id number] Closed Specialty Service Requested 05/30/2017 05/30/2018 1 1 Reason for Visit * Diagnostic Test (Routine) - Closed Specialty Diagnoses / Procedures Referred By Diamante t Referred To Contact Radiology Diagnoses Malignant neoplasm of female breast, unspecified estrogen receptor status, unspecified laterality, unspecified site of breast Procedures IR Drain Check/Change/Remove Diana Azevedo APRN [facility] [place] [address] [place] [address] Referral ID Status Reason Start Date Expiration Date V isits Requested Visits Authorized [id number] Closed Specialty Service Requested 05/30/2017 05/30/2018 1 1 Encounter Details Date Type Department Care Team (Latest Contact Info) Description 06/06/2017 9:35 AM EDT - 06/06/2017 10:42 AM EDT Hospital Encounter Radiology at [facility] [place] [phone] Diana Azevedo APRN [facility] DR [place]ST[place] [address] Malignant neoplasm of female breast, unspecified estrogen receptor status, unspecified laterality, unspecified site of breast Discharge Disposition: Home [...] Sign Reading Time Taken Comments Blood Pressure 141/90 06/06/2017 10:11 AM EDT Pulse 65 06/06/2017 10:11 AM EDT Temperature 36.8 ??C (98.2 ??F) 06/06/2017 10:11 AM E DT Respiratory Rate 16 06/06/2017 10:11 AM EDT Oxygen Saturation 100% 06/06/2017 10:11 AM EDT Inhaled Oxygen Concentration - - Weight - - Height - - Body Mass Index - - documented in this encounter Discharge Instructions * Discharge Instructions* Loida Mcelroy RN - 06/06/2017 11:[address] [facility] Vascular and Interventional Radiology Discharge Instructions For [...] is during regular office hours, please call [phone]. If it is after regular office hours, or on weekends or holidays, please call [phone] and ask to speak to the Emotional Support Teacher acid conditioning worker for Interventional Radiology. You may resume your regular diet as [...] for 7 days. 14 tablet 06/07/2017 06/14/2017 cephalexin (KEFLEX) 500 mg Capsule 0 06/02/2017 [...] of this encounter Progress Notes * Loida Mcelroy RN - 06/06/2017 11:43 AM EDT ANGIO NURSING DATABASE Name: WENDY SANDOVAL Date of : 1965 AGE 51 y.o. [address]: [address] [place] [phone] (home) [phone] (work) Mobile: Telephone Information: Referring Provider: Diana Azevedo REASON FOR VISIT: Left breast u/s with possible drain placement, R and L breast drain sinograms Anticoagulant/antiplatelet/herbal med. stopped on per MD order. Allergies Allergen Reactions ??? Pcn [Penicillins] ??? Zoloft [Sertraline] PSORIASIS FLARE Pertinent PMH: Patient Active Problem List Diagnosis Code ??? Hypertension I10 ??? Depression F32.9 ??? Obstructive sleep apnea (adult) (pediatric) G47.33 ??? OA (osteoarthritis) M19.90 ??? Overweight(278.02) E66.3 ??? Hyperparathyroidism E21.3 ??? Malignant neoplasm of upper-outer quadrant of left breast in female, estrogen receptor wjqcfumlH28.412, Z17.0 ??? Status post bilateral breast reconstruction Z98.890 ??? Surgery follow-up Z09 ??? Abdominal wound dehiscence T81.30XA Pertinent PSH: Past Surgical History: Procedure Laterality Date ??? BREAST BIOPSY Right 11/01 ??? SECTION x 2 ??? HAND SURGERY Right ??? PRG EMG, LARYNX N/A 11/02/2015 FACIAL NERVE MONITORING, SETUP LARYNGEAL performed by Valentina Lucas MD at [facility] MAIN OR ??? PRO BREAST RECONSTRUC W FREE FLAP Bilateral 04/26/2017 @BREAST RECONSTRUCTION W/ FREE FLAP, SUSAN (WRVU 42.58) performed by Andre Gimenez MD at [facility] [place] ??? PRO BREAST RECONSTRUC W TISS EXPANDR Bilateral 04/26/2017 BREAST RECONSTRUCTION, IMMEDIATE OR DELAYED, W/ TISSUE ICT SALES ASSISTANT, INCLUDING SUBSEQUENT EXPANSION (WRVU 18.5) performed by Andre Gimenez MD at [facility] MAIN OR ??? PRO EXPLORE PARATHYROID GLANDS N/A 11/02/2015 PARATHYROIDECTOMY OR EXPLORATION OF PARATHYROID(S) performed by Valentina Lucas MD at [facility] OR ? ? PRO FULL THICK GRFT TRUNK <20 SQCM Bilateral 04/26/2017 FTSG, FREE, DIR CLOSE DONOR SITE, TRUNK, 20 SQ CM OR LESS (WRVU 9.15) performed by Andre Gimenez MD at [facility] OR ??? PRO MASTECTOMY, SIMPLE, COMPLETE Bilateral 04/26/2017 MASTECTOMY, SIMPLE, COMPLETE-SUSAN (WRVU 15.85) performed by Jolie Menendez MD at [facility] OR ??? PRO PARTIAL REMOVAL OF RIB Bilateral 04/26/2017 EXCISION OF RIB, PARTIAL (WRVU 7.26) performed by Andre Gimenez MD at [facility] OR ??? PRO REMOVE ARMPITS LYMPH NODES COMPLT Left 04/26/2017 LYMPHADENECTOMY, AXILLARY, COMPLETE (WRVU 13.87) performed by Jolie Menendez MD at [facility] OR ??? PRO THYMECTOMY, TRANSCERVICAL N/A 11/02/2015 THYMECTOMY, TRANSCERVICAL APPROACH performed by Valentina Lucas MD at [facility] OR ??? SHOULDER SURGERY Left ??? UMBILICAL HERNIA REPAIR Date/Procedure Med's given/comments 04/30/17 Rt breast drain exchange and [...] R drain removed. Fentanyl 50 mcg IV? Laboratory Results: Lab Results Component Value Date CREATININE 0.87 05/10/2017 Lab Results Component Value Date K 3.4 (L) 05/10/2017 Lab Results Component Value Date PLATELET 575 (H) 05/14/2017 Medications: Prior to Admission medications Medication Sig Start Date End Date Taking? Authorizing Provider cephalexin (KEFLEX) 500 mg Capsule 06/02/17 PROVIDER, HISTORICAL cholecalciferol, Vitamin D3, (VITAMIN D-3) 5,000 unit Tablet Take by mouth. PROVIDER, HISTORICAL LORazepam (ATIVAN) 0.5 mg Tablet Take 1 tablet by mouth every 6 hours as needed for Anxiety. Patient not taking: Reported on 06/04/2017 06/01/17 Sally Ren APRN prochlorperazine (COMPAZINE) 10 mg Tablet Take 1 tablet by mouth every 6 hours as needed for Nausea. Patient not taking: Reported on 06/04/2017 06/01/17 Sally Ren APRN ondansetron (ZOFRAN) 4 mg Tablet Take 1 tablet by mouth every 8 hours as needed for Nausea. Patient not taking: Reported on 06/01/2017 05/25/17 Jolene Azevedo APRN silver sulfADIAZINE (SILVADENE) 1 % Cream Apply topically 2 times daily. 05/15/17 Alma Castillo PA Lactobacillus (BACID) 0.5 mg (100 million cell) Tablet Take 1 tablet by mouth daily. 05/01/17 lAma Castillo PA valsartan-hydrochlorothiazide (DIOVAN-HCT) 160-12.5 mg Tablet Take 1 tablet by mouth daily. 02/20/17 PROVIDER, HISTORICAL levothyroxine (SYNTHROID) 112 mcg Tablet Take 1 tablet by mouth daily. 01/25/17 PROVIDER, HISTORICAL atorvastatin (LIPITOR) 20 mg Tablet [...] 2 times daily. 10/31/12 PROVIDER, HISTORICAL * Loida Mcelroy RN - 06/06/2017 11:23 AM EDT 1115 To procedure room 3 via stretcher. Onto table supine. All monitors, O2, safety strap in place.Med's per protocol. documented in this encounter Plan of Treatment Upcoming Encounters Date Type Department Care Team (Late st Contact Info) Description 01/22/2024 10:30 AM EST Appointment Mammography/[place] [phone] Ladi Mendosa MD [facility] HEMATOLOGY/[place] [address] 01/30/2024 11:30 AM EST Office Visit Dermatology at [address] [phone] Nilda Luis MD [facility] DR LIDIA [place] [address] 02/15/2024 9:30 AM EST Appointment [place] [phone] [place] [address] documented as of this encounter Procedures Procedure Name Priority Date/Time Associated Diagnosis Comments IR DRAIN CHECK/CHANGE/REMOVE Routine 06/06/2017 12:05 PM EDT Malignant neoplasm of female breast, unspecified estrogen receptor status, unspecified laterality, unspecified site of breast documented in this encounter Results * IR Drain Check/Change/Remove (06/06/2017 12:05 PM EDT) Anatomical Region Laterality Modality Head X-Ray Angiograph y Narrative 06/06/2017 1:23 PM EDT IR Procedure Note Procedure: ?1. Right breast drain removal ?2. Left breast drain injection ?3. US evaluation of the left breast History/indication: 51 y.o. female with history of left breast cancer s/p bilateral mastectomy, with tissue drop board worker placement. Seen in Plastic Surgery clinic yesterday [...] of the left breast demonstrated the tissue drop board worker with several folds but no discreet adjacent fluid collection. Images and exam were reviewed with Dr. Rodriguez (Breast Division) Left breast drain injection showing : The drain is patent; a portion of the contrast collects around the drain laterally; contrast also opacifies a curvilinear space surrounding the drop board worker. Complications: ?None immediate; ??EBL=0 Medications: ??1% lidocaine (<10 cc); fentanyl 50 mcg Contrast: ??5 cc non-ionic/omniapque Fluoroscopy time: 1.6 minutes Findings: 1. Right breast drain removal. 2. Left breast US with no fluid collection adjacent to the drop board worker observed 3. Left breast drain injection showing contrast collecting around the drain laterally as well as opacifying a curvilinear space around the drop board worker. Attending: ?Rashaad Paulson MD ? I was present during the intraservice time as documented by the IR Nurse. Diana Azevedo APRN IMG IR ORDERABLES documented in this encounter Visit Diagnoses Diagnosis Malignant neoplasm of female breast, unspecified estrogen receptor status, unspecified laterality, unspecified site of breast documented in this encounter Administered Medications Inactive Administered Medications - up to 3 most recent administrations Medication Order MAR Action Action Date Dose Rate Site fentaNYL 50 mcg/mL multi-dose injection 25-50 mcg, Intravenous, EVERY 5 MIN PRN, Starting on Sun06/06/17 at 1016, Until Sosa 06/07/17 at 0436, Pain, per unit protocol, - Start dose [...] and verbal order., Angio/IR (Intra-Procedure), Routine Given 06/06/2017 11:32 AM EDT 50 mcg iohexol (OMNIPAQUE) 350 mg/mL solution 50 mL 50 mL, Other, ONCE PRN, 1 dose, Starting on Sun06/06/17 at 1206, Until Sun06/06/17 at 1206, Per Protocol, Warning Vesicant/Irritant Medication , Routine Given 06/06/2017 12:06 PM EDT 5 mLs documented in this encounter Care Teams Cot Assembler Relationship Specialty Start Date End Date Trinh Coates MD [facility] [address] [place] [id number] PCP - General 01/11/10 documented as of this encounter
--- OUTSIDE RECORDS SUMMARY | 2023-09-07 11:32 | XMS_ITS | Encounter Summary ---
Author Organization On License Of [facility] Address [facility] [place] [address] Care Team Providers Care Manager Employee Relations Name Role Phone Trinh Coates MD Primary Care Provider [phone] Encounter Details Date Type Department Care Team (Latest Contact Info) Description 06/26/2017 12:41 PM EDT - 06/26/2017 2:25 PM EDT Hospital [place] [address] Jolene Azevedo APRN [facility] [place] [address] Discharge Disposition: Home Social History Tobacco Use [...] 01/22/2024 10:30 AM EST Appointment Mammography[place] [phone] Ladi Mendosa MD [facility] HEMATOLOGY/[place] [address] 01/30/2024 11:30 AM EST Office Visit Dermatology at [facility] [address] [place] [phone] Nilda Luis MD [facility] [place] [address] 02/15/2024 9:30 AM [place] [phone] Joanna Watts MD [place], [place] [phone] documented as of this encounter Procedures Procedure Name Priority Date/Time Associated Diagnosis Comments MAMMO BREAST US LIMITED LEFT Routine 06/26/2017 1:19 PM EDT documented in this encounter Results * US Breast Limited Left (06/26/2017 1:19 PM EDT) Anatomical Region Laterality Modality Breast Left Mammography Impressions 06/26/2017 1:28 PM EDT Circumferential fluid at the superior and inferior aspects of the implant. Decision to drain should be based on clinical assessment as there is not one single large pocket. BI-RADS Category 2: Benign Findings Narrative 06/26/2017 1:28 PM EDT EXAMINATION: US ??BREAST LIMITED LEFT CLINICAL HISTORY: ?fluid collection left breast. Please drain and culture if found TECHNIQUE: I performed high-resolution ultrasound following the technologist. COMPARISON: This study was compared with prior images. FINDINGS: There is a shallow rim of anechoic fluid surrounding the implant. This is becomes 2 cm deep at the superior aspect of the implant and 1 cm deep at the 6:00 radian. The collection laterally to the implant is 1.5 cm deep, decreased in size from 05/14/2017. Jolene Azevedo APRN IMG MAMMO ORDERABLES documented in this encounter Visit Diagnoses Not on filedocumented in this encounter Care Teams Manager Employee Relations Relationship Specialty Start Date End Date Trinh Coates MD [facility] [address] [place] [address] PCP - General 01/11/10 documented as of this encounter
--- OUTSIDE RECORDS SUMMARY | 2023-09-07 11:32 | XMS_ITS | Encounter Summary ---
Author Organization [facility] Address [facility] [place] [address] Care Team Providers Care Him Specialists Name Role Phone Trinh Coates MD Primary Care Provider [phone] Reason for Visit * Reason Comments Follow Up Surgery expansion, Encounter Details Date Type Department Care Team (Late st Contact Info) Description 06/20/2017 11:00 AM EDT Office [place] [address] Jolene Azevedo APRN [facility] [place] [place] [address] Surgery follow-up Social History Tobacco Use Types [...] * Patient Instructions* Jolene Azevedo APRN - 06/20/2017 11:00 AM EDT Plan: Schedule for debridement of left breast wound and closure Wash over all areas with soap and water, pat dry. Allow time to air dry Continue saline moistened gauze dressings to left nipple Continue use of silvadene on belly button. Wash off in between applications. Apply Aquaphor to right nipple documented in this encounter Progress Notes * Jolene Azevedo APRN - 06/20/2017 11:00 AM EDT Plastic Surgery Follow Up Note Date of surgery: 04/26/17 Procedure(s): Bilateral breast reconstruction with attempted SALVADOR flaps, eventual tissue account development representative placement with [place] Artoura 600 cc expanders placed bilaterally and filled with 450 cc of methyleneblue impregnated saline.) Complications: right parietal and visceral pleural tear, arterial flap failure bilaterally Chemotherapy: To begin July 05 Radiation: TBD HPI: Pt reports she has been well since her last visit. She has pain at her left axilla, and notes she has not yet been able to begin PT. Drain output has been 30-35ml daily. She would like to be able to attend her daughter's graduation in [place] next week, and wonders if this is possible. Examination: Patient is alert, conversant, comfortable, ambulating Superficial eschar debrided from left NAC No evidence of infection Drain in place with serous output Bilateral breast tissue expanders remain with 500 ml, no expansion was performed today Impression: Wendy Sandoval is a 51 y.o. female who was seen today for follow- up after the above procedure. Please see the operative note for details. Nonhealing open area of left NAC. Dr. Gimenez in to examine patient, we discussed planning for debridement of the wound with closure to expedite her wound healing and enable her to begin her chemotherapy and travel for her daughter'sgraduation. Plan: Schedule for debridement of left breast wound and closure Wash over all areas with soap and water, pat dry. Allow time to air dry Continue saline moistened gauze dressings to left nipple Continue use of silvadene on belly button. Wash off in between applications. Apply Aquaphor to right nipple Surgeon: Ammy Duration: 60 mins Timeframe:this week Procedure: debridement/closure of left breast wound. Possible abdominal wound debridement. CPT: 81859, [address], [address] Surgical site: breast Side: left Anesthesia: General Follow up: 5 Days NSO or AEE PAT: Donna Atkinson, Nimo [place], have performed the documentation for [...] 01/22/2024 10:30 AM EST Appointment Mammography/[place] [address] Ladi Mendosa MD [facility] [place]AT[place] [address] 01/30/2024 11:30 AM EST Office Visit Dermatology at [address] [phone] Nilda Luis MD [facility] DR [place] [address] 02/15/2024 9:30 AM EST [place] [address] [place] [address] documented as of this encounter Visit Diagnoses Diagnosis Surgery follow-up Follow-up examination, following unspecified surgery documented in this encounter Care Teams Him Specialists Relationship Specialty Start Date End Date Trinh Coates MD [address] [place] [address] PCP - General 01/11/10 documented as of this encounter
--- OUTSIDE RECORDS SUMMARY | 2023-09-07 11:32 | XMS_ITS | Encounter Summary ---
[facility] [place] [address] Care Team Providers Care Furniture Reproducer Name Role Phone Trinh Coates MD Primary Care Provider [phone] Reason for Visit * Reason Comments Follow-up Encounter Details Date Type Department Care Team (Late st Contact Info) Description 07/20/2017 1:00 PM EDT Office Visit Hematology [place] [address] [facility] [place] [address] Malignant neoplasm of upper-outer quadrant of left breast in female, estrogen receptor positive (Primary Dx); Hypokalemia Social History Tobacco Use Types Packs/Day Years [...] Sign Reading Time Taken Comments Blood Pressure 155/92 07/20/2017 12:59 PM EDT Pulse 82 07/20/2017 12:59 PM EDT Temperature 37 ??C (98.6 ??F) 07/20/2017 12:59 PM EDT Respiratory Rate 18 07/20/2017 12:59 PM EDT Oxygen Saturation 95% 07/20/2017 12:59 PM EDT Inhaled Oxygen Concentration - - Weight 81.2 kg (179 lb) 07/20/2017 12:59 PM EDT Height 157.7 cm (5' 2.09) 07/20/2017 12:59 PM E DT Body Mass Index 32.65 07/20/2017 12:59 PM EDT documented in this encounter Progress Notes * Sally Ren, [employer] - 07/20/2017 1:00 PM EDT Subjective: Patient ID: Wendy [...] was unremarkable. Core biopsy demonstrated invasive cancer, ER/UT positive, HER- 2/pat negative. Breast MRI demonstrated [...] has no wheezes. She exhibits no tenderness. Left breast with small scab, no drainage. Abdominal: Soft. Bowel sounds are normal. She exhibits no distension. Musculoskeletal: Normal range of motion. She exhibits no edema or tenderness. Lymphadenopathy: She has no cervical adenopathy. Neurological: She is alert and oriented to person, place, and time. No cranial nerve deficit. Skin: Skin is warm and dry. She is not diaphoretic. Psychiatric: She has a normal mood and affect. Her behavior is normal. Recent Results (from the past 24 hour(s)) Potassium Result Value Ref Range Potassium 3.4 (L) 3.5 - 5.0 mmol/L Assessment and Plan: Wendy Sandoval is a 52 y.o. with ER/UT positive, HER-2/pat negative left breast cancer. She is s/p bilateral MRM with SALVADOR reconstruction. This was complicated by delayed wound healing and infection. She has finished her course of antibiotics, she has healed. She is ready to proceed with adjuvant adriamycin and cytoxan today. We reviewed the side effect profile again. She has medications for nausea at home. She will use the Onpro for neulasta delivery. She will take claritin as directed. I have asked her to continue taking 60 meq's of potassium daily as her K+ is still low. She is aware tocall with any fevers or signs of infection. She will call with further questions or concerns. We will see her back in 2 weeks with labs and for cycle 2. Sally Ren APRN documented in this encounter Plan of Treatment Upcoming Encounters Date Type Department Care Team (Late st Contact Info) Description 01/22/2024 10:30 AM EST Appointment Mammography/[place] [phone] Ladi Mendosa MD [facility] HEMATOLOGY/[place] [address] 01/30/2024 11:30 AM EST Office Visit Dermatology at [facility] [address] [place] [address] [facility] [address] [place] [address] 02/15/2024 9:30 AM EST Appointment [place] [phone] [place] [address] documented as of this encounter Visit Diagnoses Diagnosis Malignant neoplasm of upper-outer quadrant of left breast in female, estrogen receptor positive- Primary Hypokalemia Hypopotassemia documented in this encounter Care Teams Furniture Reproducer Relationship Specialty Start Date End Date Trinh Coates MD [facility] [address] [place] [address] PCP - General 01/11/10 documented as of this encounter
--- OUTSIDE RECORDS SUMMARY | 2023-09-07 11:32 | XMS_ITS | Encounter Summary ---
Author Organization [facility] [place] [address] Care Team Providers Care Grinding Wheel Operator Name Role Phone Trinh Coates MD Primary Care Provider [phone] Reason for Visit * Reason Comments Follow Up Surgery s/p left breast woun d debridement dos 06/22 Encounter Details Date Type Department Care Team (Late st Contact Info) Description 07/20/2017 10:40 AM EDT Office [place] [address] Jolene Azevedo APRN [facility] [place] [address] Surgery follow-up Social History Tobacco Use Types [...] * Patient Instructions* Jolene Azevedo APRN - 07/20/2017 10:40 AM EDT Plan: Follow up in [address] Gimenez, coordinated with chemotherapy Wash over all areas with soap and water. Pat dry, allow time to air dry. Apply nugauze wick to open abdominal area, change daily. Tuck gauze inside bra with any drainage. Continue to wear soft bra. Sports bra ok. documented in this encounter Progress Notes * Jolene Azevedo APRN - 07/20/2017 10:40 AM EDT Plastic Surgery Follow Up Note Date of surgery: 04/26/17 Procedure(s): Bilateral breast reconstruction with attempted SALVADOR flaps, eventual tissue radius corner machine operator placement with [place] Artoura 600 cc expanders placed bilaterally and filled with 450 cc of methyleneblue impregnated saline.) Complications: right parietal and visceral pleural tear, arterial flap failure bilaterally Date of surgery: 06/22/17 Procedure(s) left breast wound debridement, excision and closure. Debridement of umbilicus. Deflation of radius corner machine operator volume, This leaves 450 cc in the left tissue radius corner machine operator and 500 cc on the right side Chemotherapy: yes Radiation: TBD HPI: Pt reports she has generally been very well. She has not noticed any new drainage or swelling.She notes the radius corner machine operator has been uncomfortable. She is wearing a soft bra. She will begin chemotherapy today, with infusions every other week. Examination: Patient is alert, conversant, comfortable, ambulating Left tissue radius corner machine operator appears to have maintained its fill volume Suture line is intact, sutures removed today 1 cm deep open area of umbilicus. Serous drainage. No collection, no erythema, no evidence of cellulitis Impression: Wendy Sandoval is a 52 y.o. female who was seen today for follow- up after the above procedure. Please see the operative note for details. She is doing well. We discussed after she has completed several chemotherapy treatments she may return for discussion of further reconstruction revisions with Dr. Gimenez. Plan: Follow up in [address] Gimenez, coordinated with chemotherapy Wash over all areas with soap and water. Pat dry, allow time to air dry. Apply nugauze wick to open abdominal area, change daily. Tuck gauze inside bra with any drainage. Continue to wear soft bra. Sports bra ok. I, Nimo Llamas, have performed the documentation [...] 01/22/2024 10:30 AM EST Appointment Mammography/[place] [phone] Ladi Mendosa MD [facility] HEMATOLOGY/[place] [address] 01/30/2024 11:30 AM EST Office Visit Dermatology at [place] [address] [place] [phone] Nilda Luis MD [facility] DR LID[place] [address] 02/15/2024 9:30 AM EST Appointment [place] [phone] [place] [address] documented as of this encounter Visit Diagnoses Diagnosis Surgery follow-up Follow-up examination, following unspecified surgery documented in this encounter Care Teams Grinding Wheel Operator Relationship Specialty Start Date End Date Trinh Coates MD [facility] [address] [place] [address] PCP - General 01/11/10 documented as of this encounter
--- OUTSIDE RECORDS SUMMARY | 2023-09-07 11:32 | XMS_ITS | Encounter Summary ---
Author Organization [facility] [place] [address] Care Team Providers Care Resource Teacher Name Role Phone Trinh Coates MD Primary Care Provider [phone] Encounter Details Date Type Department Care Team (Late st Contact Info) Description 07/05/2017 Telephone [place] [address] Jolene Azevedo APRN [facility] [place] [address] Social History Tobacco Use Types Packs/Day Years [...] encounter Miscellaneous Notes * Telephone Encounter - Jolene Azevedo APRN - 07/05/2017 10:03 AM EDT She will come to our office 07/10 at 8:[address]. [address] Cyr or Destiny Ren. Chemo will be delayed until this visit. documented in this encounter Plan of Treatment Upcoming Encounters Date Type Department Care Team (Late st Contact Info) Description 01/22/2024 10:30 AM EST Appointment Mammography/[place] [address] Ladi Mendosa MD [facility] HEMATOLOGY/[place] [address] 01/30/2024 11:30 AM EST Office Visit Dermatology at [place] [address] [place] [phone] Nilda Luis MD [facility] [address] [place] [address] 02/15/2024 9:30 AM EST [place] [address] [place] [address] documented as of this encounter Visit Diagnoses Not on filedocumented in this encounter Care Teams Resource Teacher Relationship Specialty Start Date End Date Trinh Coates MD [facility] [address] [place] [address] PCP - General 01/11/10 documented as of this encounter
--- OUTSIDE RECORDS SUMMARY | 2023-09-07 11:32 | XMS_ITS | Encounter Summary ---
Author Organization [facility] Address [facility] [place] [address] Care Team Providers Care Supervisor Pullet Farm Name Role Phone Trinh Coates MD Primary Care Provider [phone] Reason for Visit * Treatment/Therapy Plan Authorization (Routine) - Closed Specialty Diagnoses / Procedures Referred By Diamante marin Referred To Contact Hematology and Oncology Diagnoses Malignant neoplasm of upper-outer quadrant of left breast in female, estrogen receptor positive Procedures TC PALONOSETRON HCL, 25MCG, INJECTION (ALOXI) TC DOXORUBICIN HCL, 10MG, INJECTION (ADRIAMYCIN) TC CYCLOPHOSPHAMIDE, 100MG (CYTOXAN) TC PEGFILGRASTIM, 6MG, INJECTION Gustavo Mota MD [facility] DR HEMATOLOGY/[place] [address] [address] Referral ID Status Reason Start Date Expiration Date Visits Re quested Visits Authorized [id number] Closed 07/02/2017 07/02/2018 12 12 Encounter Details Date Type Department Care Team (Latest Contact Info) Description 08/03/2017 8:51 AM EDT - 08/03/2017 11:59 PM EDT Hospital Encounter [place]ology [place] [address] Malignant neoplasm of upper-outer quadrant [...] Progress Notes * Aida Jackson RN - 08/03/2017 9:18 AM EDT Patient Name: Wendy Sandoval Patient Age: 52 y.o. Birthdate: 1965 Admit date: 08/03/2017 Attending Physician: No att. providers found Access visit. See MAR and/or flowsheet. documented in this encounter Plan of Treatment Upcoming Encounters Date Type Department Care Team (Late st Contact Info) Description 01/22/2024 10:30 AM EST Appointment Mammography/[place] [phone] Ladi Mendoas MD [facility] HEMATOLOGY/[place] [address] 01/30/2024 11:30 AM EST Office Visit Dermatology at [place] [address] [place] [address] Nilda Luis MD [facility] DR [address] [place] [address] 02/15/2024 9:30 AM EST [place] [address] [place] [address] documented as of this encounter Procedures Procedure Name Priority Date/Time Associated Diagnosis Comments HEMOGRAM STAT 08/03/2017 9:15 AM EDT Malignant neoplasm of upper-outer quadrant of left breast in female, estrogen receptor positive DIFFERENTIAL, AUTOMATED STAT 08/03/2017 9:15 AM EDT Malignant neoplasm of upper-outer quadrant of left breast in female, estrogen receptor positive CBC (WITH DIFF) STAT 08/03/2017 9:15 AM EDT Malignant neoplasm of upper-outer quadrant of left breast in female, estrogen receptor positive COMPREHENSIVE METABOLIC PANEL (NON-FASTING) STAT 08/03/2017 9:15 AM EDT Malignant neoplasm of upper-outer quadrant of left breast in female, estrogen receptor positive documented in this encounter Results * (ABNORMAL) Differential, Automated (08/03/2017 9:15 AM EDT) Neutrophils % 15.9 % [facility] Neutr Abs (ANC) 0.42(Crit ical) 1.70 - 6.10 x10(3)/mc L [facility] Comment: This result has been called to EDWIN HYMAN by Antwon Aguilar on 08 03 2017 at 1005, and has been read back. Lymphocytes % 46.0 % [facility] Lymphocytes Abs 1.2 0.9 - 3.2 x10(3)/mc L [facility] Monocytes % 21.7 % [facility] Monocyte Abs 0.6 0.3 - 0.9 x10(3)/mc L [facility] Eosinophils % 8.4 % [facility] Eosinophils Abs 0.2 0.0 - 0.4 x10(3)/mc L [facility] Basophils % 3.4 % [facility] Basophils Abs 0.1 0.0 - 0.1 x10(3)/mc L [facility] Immature Gran % 4.60 % [facility] Comment: Immature granulocytes(IG's)percentage and absolute count will include metamyelocytes, myelocytes, and promyelocytes. Blood smears from CBCs yielding IG's will be scanned manually for concordance. If this scan disagrees with the automated IG or if promyelocytes are noted, a manual differential will be performed. Nova Gran Abs 0.12(H) 0.00 - 0.04 x10(3)/mc L [facility] Blood specimen (specimen) 08/03/2017 9:15 AM EDT 08/03/2017 9:38 AM EDT Narrative Resulting Agency Comment Spec In Lab Gustavo Mota MD HEMATOLOGY ORDERABLE S [facility] [place] [address] * (ABNORMAL) Hemogram (08/03/2017 9:15 AM EDT) WBC 2.6(L) 4.0 - 9.5 x10(3)/[facility] RBC 4.33 4.00 - 5.21 x10(6)/[facility] Hemoglobin 12.8 11.7 - 15.5 gm/dL [facility] Hematocrit 38.9 35.7 - 45.8 % [facility] MCV 89.8 82.6 - 94.4 fL [facility] MCH 29.6 27.1 - 32.0 pg [facility] MCHC 32.9 31.7 - 35.0 gm/dL [facility] Platelets 294 145 - 357 x10(3)/[facility] RDWSD 44.4 37.0 - 46.0 fL [facility] RDWCV 13.5 11.5 - 14.1 % [facility] MPV 8.5 7.6 - 12.9 fL [facility] nRBC % Auto 0.0 % [facility] nRBC Abs Auto 0.000 0.000 - 0.000 x10(3)/mcL [facility] Blood specimen (specimen) 08/03/2017 9:15 AM EDT 08/03/2017 9:38 AM EDT Narrative Resulting Agency Comment Spec In Lab Gustavo Mota MD HEMATOLOGY ORDERABLE S [facility] [place] [address] * (ABNORMAL) Comprehensive metabolic panel (non-fasting) (08/03/2017 9:15 AM EDT) Glucose Lvl 158 65 - 199 mg/dL [facility] Comment:Diabetes: >=200 mg/d L plus symptoms BUN 18 8 - 18 mg/dL [facility] Creatinine 0.95 0.70 - 1.20 mg/dL [facility] Sodium 140 135 - 145 mmol/L [facility] Potassium 3.3(L) 3.5 - 5.0 mmol/L [facility] Comment: Please note: ??Patients with WBC >100,000 may have falsely elevated Potassium levels. ??For accurate Potassium quantification in these patients send serum separator tube (gold top) for subsequent determinations. ??Contact the Clinical Chemistry Laboratory if there are any questions. Chloride 99 98 - 107 mmol/L [facility] CO2 25 22 - 31 mmol/L [facility] Anion Gap 16(H) 5 - 15 mmol/L [facility] Calcium 8.9 8.5 - 10.5 mg/dL [facility] Total Protein 6.8 6.1 - 8.0 gm/dL [facility] Albumin 3.9 3.2 - 5.2 gm/dL [facility] AST 13 0 - 30 unit/L [facility] ALT 18 0 - 30 unit/L [facility] Alk Phos 139(H) 40 - 104 unit/L [facility] Total Bilirubin <0.2(L) 0.2 - 1.3 mg/dL [facility] Estimated GFR 68 >=60 mL/min/1. 73 m?? [facility] Comment: The eGFR was calculated using the CKD-EPI equation. As with all creatinine based estimates of kidney function, eGFR values calculated with the CKD-EPI equation are not accurate in patients with acute kidney failure, extremes of body mass or the acutely ill. http://[employer] Energykdep http://[employer]/Tracabnkf eGFR 79 >=60 mL/min/1. 73 m?? [facility] Comment: The eGFR was calculated using the CKD-EPI equation. As with all creatinine based estimates of kidney function, eGFR values calculated with the CKD-EPI equation are not accurate in patients with acute kidney failure, extremes of body mass or the acutely ill. http://[employer]nkdep http://[employer]f Blood specimen (specimen) 08/03/2017 9:15 AM EDT 08/03/2017 9:38 AM EDT Narrative Resulting Agency Comment Spec In Lab Gustavo Mota MD CHEMISTRY ORDERABLES [facility] [place] [address] documented in this encounter Visit Diagnoses Diagnosis Malignant neoplasm of upper-outer quadrant of left breast in female, estrogen receptor positive documented in this encounter Administered Medications Inactive Administered Medications - up to 3 most recent administrations Medication Order MAR Action Action Date Dose Rate Site sodium chloride 0.9 % flush 5-20 mL 5-20 mL, Intravenous, EVERY 1 MIN PRN, Starting on Sun08/03/17 at 0859, Until 08/04/17 at 0441, Line Care, Flush pertains to all indwelling lines. Flush per protocol found in the job aid using the link provided on this medication record. Refer to Intravenous (IV) Job Aid: Adult Flushing & Catheter Care (7179) job aid for additional information regarding guidelines and administration., Routine Given 08/03/2017 9:18 AM EDT 20 mLs documented in this encounter Care Teams Supervisor Pullet Farm Relationship Specialty Start Date End Date Trinh Coates MD [facility] [address] [place] [address] PCP - General 01/11/10 documented as of this encounter
--- OUTSIDE RECORDS SUMMARY | 2023-09-07 11:32 | XMS_ITS | Encounter Summary ---
Author Organization [facility] [place] [address] Care Team Providers Care System Technologist Name Role Phone Trinh Coates MD Primary Care Provider [phone] Encounter Details Date Type Department Care Team (Late st Contact Info) Description 07/05/2017 11:20 AM EDT Office [place] [address] Jolene Azevedo APRN [facility] [place] [place] [address] Surgery follow-up Social History Tobacco Use Types [...] * Patient Instructions* Jolene Azevedo APRN - 07/05/2017 11:20 AM EDT Picture obtained of left breast. Follow up 07/10. I will call the patient if any intervention needed before then. Sliver foam and gauze over left breast. Change as needed for drainage. Nugazue wick to umbilicus. Change daily. documented in this encounter Progress Notes * Jolene Azevedo APRN - 07/05/2017 11:20 AM EDT Images from the original note were not included. Plastic Surgery Follow Up Note Date of surgery: 04/26/17 Procedure(s): Bilateral breast reconstruction with attempted SALVADOR flaps, eventual tissue senior technical program manager placement with [place] Artoura 600 cc expanders placed bilaterally and filled with 450 cc of methyleneblue impregnated saline.) Complications: right parietal and visceral pleural tear, arterial flap failure bilaterally Date of surgery: 06.22.17 Procedure(s) left breast wound debridement, excision and closure. Debridement of umbilicus. Deflation of senior technical program manager volume, This leaves 450 cc in the left tissue senior technical program manager and 500 cc on the right side Chemotherapy: To begin July 05 Radiation: TBD HPI: Pt reports that while she was on vacation that she had drainage to her left breast. She continues to have this drainage. She feels that she has been getting an out put of 20-30 cc's. She does still appreciate soreness to the breast mostly where the drain was originally placed. Examination: Patient is alert, conversant, comfortable, ambulating Breast tissue expanders in place. Right NAC well healed. Left breast incision sutures in place. Serous drainage. Approximately 20-30 mls of serous fluid on dressing. No erythema. Impression: Wendy Sandoval is a 52 y.o. female who was seen today for follow- up after the above procedure. Please see the operative note for details. Delayed healing, left breast incision. Chemotherapy continues to be delayed. Plan: Picture obtained of left breast. Follow up 07/10. I will call the patient if any intervention needed before then. Sliver foam and gauze over left breast. Change as needed for drainage. Nugazue wick to umbilicus. Change daily. IAilyn have performed the documentation for this [...] 01/22/2024 10:30 AM EST Appointment Mammography/[place] [address] Ladi Mendosa MD [facility] HEMATOLOGY/[place] [address] 01/30/2024 11:30 AM EST Office Visit Dermatology at [place] [address] [place] [address] Nilda Luis MD [facility] [place] [address] 02/15/2024 9:30 AM EST Appointment [place] [address] [place] [address] documented as of this encounter Visit Diagnoses Diagnosis Surgery follow-up Follow-up examination, following unspecified surgery documented in this encounter Care Teams System Technologist Relationship Specialty Start Date End Date Trinh Coates MD [address] [place], [place] [address] [place] [address] PCP - General 01/11/10 documented as of this encounter
--- OUTSIDE RECORDS SUMMARY | 2023-09-07 11:32 | XMS_ITS | Encounter Summary ---
Author Organization [facility] [place] [address] Care Team Providers Care Phlebotomist Name Role Phone Trinh Coates MD Primary Care Provider [phone] Reason for Referral * Diagnostic Test (Routine) - Closed Specialty Diagnoses / Procedures Referred By Diamante marin Referred To Contact Radiology Diagnoses Fluid collection at surgical site, initial encounter Procedures IR All Drainage Procedures Jarod Damico MD [facility] [place] [place] [address] [place] [address] Referral ID Status Reason Start Date Expiration Date V isits Requested Visits Authorized [id number] Closed Specialty Service Requested 06/05/2017 06/05/2018 1 1 Reason for Visit * Reason Comments Follow-up ? left breast seroma Encounter Details Date Type Department Care Team (Latest Contact Info) Description 06/05/2017 2:00 PM EDT Clinical [place] [address] Fluid collection at surgical site, initial encounter (Primary Dx); Surgery follow-up Social History Tobacco Use Types [...] Pressure - - Pulse - - Temperature 36.9 ??C (98.4 ??F) 06/05/2017 2:11 PM ED T Respiratory Rate - - Oxygen Saturation - - Inhaled Oxygen Concentration - - Weight - - Height - - Body Mass Index - - documented in this encounter Patient Instructions * Patient Instructions* Sara Capellan RN - 06/05/2017 2:00 PM EDT documented in this encounter Progress Notes * Sara Capellan RN - 06/05/2017 2:00 PM EDT Reason for Visit: Postoperative Evaluation s/p Date of surgery: 04/26/17 Procedure(s): Bilateral mastectomies with attempted SALVADOR flaps, SALVADOR flaps debrided and TE expanderbreast reconstruction ([place] Artura??600 cc expanders placed bilaterally and filled??with 450 cc of methylene blue impregnated saline.) Wendy is here for an left breast assessment for fluid collection. Subjective: Wendy states she has moderate discomfort in her left breast she has noticed increasedswelling in the past 24hrs, with increased pain.She reports that her left breast drain as been approx 15ml daily of thick yellow sludge with a very foul odor. She remains on her antibiotics secondaryto the expanders. She denies fever/chills. Objective: Dr. Krueger in to examine Left breast tender on plapation No noticeable visual fluid collection.Left drain fluid is thick yellow. Right breast drain has been clear straw fluid.Drain has been putting out approx 20ml daily. To be evaluated by IR tomorrow. Flaps well perfused. NAC grafts adherent. Eschar centrally bilaterally, cleaned with technicare wash, silvadene re-applied No changes in measurements on abdominal wound form Jolene Hansen's last visit. Abdominal wound: 3.8 x 0.8 x 0.7 cm at the deepest. Cleaned with technicare wash, aquacel ag reapplied. Assessment: Possible fluid collection behind left breast truck cleaner. Plan: Per who reviewed with Dr. Damico Orders put in for IR to assess for left breast fluid collection, if present, culture, and place newdrain, pull out existing drain. Based on findings from IR/ possible OR for wash out per Dr. Krueger. Wendy was told to remain NPO after midnight. Dressing instructions: Continue aquacel AG to abdomin, and silvadene to NACS Wendy expressed understanding of instructions,and agrees with the plan of care. She will follow up with Dr. Krueger / nurses tomorrow after IR appointment. documented in this encounter Plan of Treatment Upcoming Encounters Date Type Department Care Team (Late st Contact Info) Description 01/22/2024 10:30 AM EST Appointment Mammography/[place] [phone] Ladi Mendosa MD [facility] [place] [address] 01/30/2024 11:30 AM EST Office Visit Dermatology at [place] [address] [place] [phone] Nilda Luis MD [facility] [address] [place] [address] 02/15/2024 9:30 AM [place] [phone] [place] [address] documented as of this encounter Results * IR All Drainage Procedures (06/06/2017 12:06 PM EDT) Anatomical Region Laterality Modality X-Ray Angiograph y Narrative 06/06/2017 1:23 PM EDT IR Procedure Note Procedure: ?1. Right breast drain removal ?2. Left breast drain injection ?3. US evaluation of the left breast History/indication: 51 y.o. female with history of left breast cancer s/p bilateral mastectomy, with tissue truck cleaner placement. Seen in Plastic Surgery clinic yesterday [...] of the left breast demonstrated the tissue truck cleaner with several folds but no discreet adjacent fluid collection. Images and exam were reviewed with Dr. Rodriguez (Breast Division) Left breast drain injection showing : The drain is patent; a portion of the contrast collects around the drain laterally; contrast also opacifies a curvilinear space surrounding the truck cleaner. Complications: ?None immediate; ??EBL=0 Medications: ??1% lidocaine (<10 cc); fentanyl 50 mcg Contrast: ??5 cc non-ionic/omniapque Fluoroscopy time: 1.6 minutes Findings: 1. Right breast drain removal. 2. Left breast US with no fluid collection adjacent to the truck cleaner observed 3. Left breast drain injection showing contrast collecting around the drain laterally as well as opacifying a curvilinear space around the truck cleaner. Attending: ?Rashaad Paulson MD ? I was present during the intraservice time as documented by the IR Nurse. Jarod Damico MD IMG IR ORDERABLES documented in this encounter Visit Diagnoses Diagnosis Fluid collection at surgical site, initial encounter- Primary Surgery follow-up Follow-up examination, following unspecified surgery Fluid collection at surgical site, initial encounter documented in this encounter Care Teams Phlebotomist Relationship Specialty Start Date End Date Trinh Coates MD [address] [place] [address] PCP - General 01/11/10 documented as of this encounter
--- OUTSIDE RECORDS SUMMARY | 2023-09-07 11:32 | XMS_ITS | Encounter Summary ---
[place] [address] Care Team Providers Care Operations Tech Name Role Phone Trinh Coates MD Primary Care Provider [phone] Reason for Referral * Diagnostic Test (Routine) - Closed Specialty Diagnoses / Procedures Referred By Diamante marin Referred To Contact Radiology Diagnoses S/P breast reconstruction Procedures IR Breast Drain Placement IR All Drainage Procedures Jolene Azevedo APRN [facility] [place] [address] [place] [address] Referral ID Status Reason Start Date Expiration Date V isits Requested Visits Authorized [id number] Closed Specialty Service Requested 06/26/2017 06/26/2018 1 1 Reason for Visit * Reason Comments Follow Up Surgery Encounter Details Date Type Department Care Team (Latest Contact Info) Description 06/26/2017 10:00 AM EDT Office [place] [address] Jolene Azevedo APRN [facility] [place] [address] Surgery follow-up; S/P breast reconstruction Social History Tobacco Use Types Packs/Day Years [...] * Patient Instructions* Jolene Azevedo APRN - 06/26/2017 10:00 AM EDT US breast to assess possible fluid collection. Drain and culture if found Wash over all areas with soap and water, pat dry. Allow time to air dry Apply saline moistened gauze twice daily to belly button To left breast wound, apply antibiotic ointment once daily. Tuck gauze in bra to cover. documented in this encounter Progress Notes * Jolene Azevedo APRN - 06/26/2017 10:00 AM EDT Plastic Surgery Follow Up Note Date of surgery: 04/26/17 Procedure(s): Bilateral breast reconstruction with attempted SALVADOR flaps, eventual tissue flour blender placement with [place] Artoura 600 cc expanders placed bilaterally and filled with 450 cc of methyleneblue impregnated saline.) Complications: right parietal and visceral pleural tear, arterial flap failure bilaterally Date of surgery: 06.22.17 Procedure(s) left breast wound debridement, excision and closure. Debridement of umbilicus. Deflation of flour blender volume, This leaves 450 cc in the left tissue flour blender and 500 cc on the right side Chemotherapy: To begin July 05 Radiation: TBD HPI: Pt reports some breast soreness after her surgery. She notes tenderness at her inferior pole on the left. She took Tylenol only for one day, then did not feel she needed it. She will be leaving for [place] in two days for her daughter's graduation. She remains on a course of Keflex. She arrives accompanied by her partner. Examination: Patient is alert, conversant, comfortable, ambulating Breast tissue expanders in place. Right NAC well healed. Left breast incision intact, sutures in place Palpable fluid collection surrounding flour blender. Mild erythema on inferior pole. Impression: Wendy Sandoval is a 52 y.o. female who was seen today for follow- up after the above procedure. Please see the operative note for details. Possible fluid collection of left breast. Will plan for US to evaluate this possibility, and drain and culture if found. We will adjust her antibiotic course as needed. Dr. Gimenez in to examine patient, he agrees with this assessment and plan. Plan: US breast to assess possible fluid collection. Drain and culture if found Wash over all areas with soap and water, pat dry. Allow time to air dry Apply saline moistened gauze twice daily to belly button To left breast wound, apply antibiotic ointment once daily. Tuck gauze in bra to cover. I, Nimo Llamas, have performed the documentation [...] 01/22/2024 10:30 AM EST Appointment Mammography/DXA at [place] [phone] Ladi Mendosa MD [facility] [place] [address] 01/30/2024 11:30 AM EST Office Visit Dermatology at [address] [place] [phone] Nilda Luis MD [facility] [address] [place] [address] 02/15/2024 9:30 AM EST [place]ointment [place] [address] Joanna Watts MD [place] [id number] documented as of this encounter Procedures Procedure [...] debridement, excision and closure, with decrease in flour blender on left to 450cc. ?? Postoperative visit today demonstrated a palpable mass around the flour blender on the LEFT; US showed small fluid [...] EDT) Abscess/Wound Aspirate Culture Few Escherichia coli(A) [facility] Gram Stain Moderate White Blood Cells seen No microorganisms seen. (A) [facility] Organism Escherichia coli(A) [facility] Fluid specimen (specimen) LEFT BREAST [...] Azevedo APRN MICROBIOLOGY - GENER AL ORDERABLES [facility] [place] [address] * US Breast Limited Left (06/26/2017 1:19 [...] decreased in size from 05/14/2017. Jolene Azevedo CADD OPERATOR IMG MAMMO ORDERABLES documented in this encounter Visit Diagnoses Diagnosis Surgery follow-up Follow-up examination, following unspecified surgery S/P breast reconstruction Breast replaced by other means S/P breast reconstruction Breast replaced by other means documented in this encounter Care Teams Operations Tech Relationship Specialty Start Date End Date Trinh Coates MD [address] [place] [address] PCP - General 01/11/10 documented as of this encounter
--- OUTSIDE RECORDS SUMMARY | 2023-09-07 11:32 | XMS_ITS | Encounter Summary ---
Author Organization [facility] Address [facility] [place] [address] Care Team Providers Care Sign Poster Name Role Phone Trinh Coates MD Primary Care Provider [phone] Reason for Visit * Treatment/Therapy Plan Authorization (Routine) - Closed Specialty Diagnoses / Procedures Referred By Diamante t Referred To Contact Hematology and Oncology Diagnoses Malignant neoplasm of upper-outer quadrant of left breast in female, estrogen receptor positive Procedures TC PALONOSETRON HCL, 25MCG, INJECTION (ALOXI) TC DOXORUBICIN HCL, 10MG, INJECTION (ADRIAMYCIN) TC CYCLOPHOSPHAMIDE, 100MG (CYTOXAN) TC PEGFILGRASTIM, 6MG, INJECTION Gustavo Mota MD [facility] DR HEMATOLOGY/[place] [address] [address] Referral ID Status Reason Start Date Expiration Date Visits Re quested Visits Authorized [id number] Closed 07/02/2017 07/02/2018 12 12 Encounter Details Date Type Department Care Team (Latest Contact Info) Description 07/20/2017 11:20 AM EDT - 07/20/2017 11:59 PM EDT Hospital Encounter Hematology [place] [address] Malignant neoplasm of upper-outer quadrant of left breast in female, estrogen receptor positive (Primary Dx); S/P breast reconstruction, bilateral Discharge Disposition: Home [...] Progress Notes * Jenni Solo RN - 07/20/2017 12:03 PM EDT Patient Name: Wendy Sandoval Patient Age: 52 y.o. Birthdate: 1965 Admit date: 07/20/2017 Attending Physician: No att. providers found Access visit. See MAR and/or flowsheet. documented in this encounter Plan of Treatment Upcoming Encounters Date Type Department Care Team (Late st Contact Info) Description 01/22/2024 10:30 AM EST Appointment Mammography/[place] [address] Ladi Mendosa MD [facility] [place]EMATOLOGY[place] [address] 01/30/2024 11:30 AM EST Office Visit Dermatology at [address] [phone] Nilda Luis MD [facility] [address] [place] [address] 02/15/2024 9:30 AM EST Appointment [place] [address] Joanna Watts MD [place] [phone] documented as of this encounter Procedures Procedure Name Priority Date/Time Associated Diagnosis Comments POTASSIUM STAT 07/20/2017 12:05 PM EDT S/P breast reconstruction, bilateral documented in this encounter Results * (ABNORMAL) Potassium (07/20/2017 12:05 PM EDT) Potassium 3.4(L) 3.5 - 5.0 mmol/L [facility] Comment: Please note: ??Patients with WBC >100,000 may have falsely elevated Potassium levels. ??For accurate Potassium quantification in these patients send serum separator tube (gold top) for subsequent determinations. ??Contact the Clinical Chemistry Laboratory if there are any questions. Blood specimen (specimen) 07/20/2017 12:05 PM EDT 07/20/2017 12:26 PM EDT Narrative Resulting Agency Comment Spec In Lab Dave Ortiz MD CHEMISTRY ORDERABLES [facility] [place] [address] documented in this encounter Visit Diagnoses Diagnosis Malignant neoplasm of upper-outer quadrant of left breast in female, estrogen receptor positive- Primary S/P breast reconstruction, bilateral Breast replaced by other means documented in this encounter Administered Medications Inactive Administered Medications - up to 3 most recent administrations Medication Order MAR Action Action Date Dose Rate Site sodium chloride 0.9 % flush 5-20 mL 5-20 mL, Intravenous, EVERY 1 MIN PRN, Starting on Sun07/20/17 at 1203, Until 07/21/17 at 0436, Line Care, Flush pertains to all indwelling lines. Flush per protocol found in the job aid using the link provided on this medication record. Refer to Intravenous (IV) Job Aid: Adult Flushing & Catheter Care (5322) job aid for additional information regarding guidelines and administration., Routine Given 07/20/2017 12:04 PM EDT 20 mLs documented in this encounter Care Teams Sign Poster Relationship Specialty Start Date End Date Trinh Coates MD [address] [place] [address] PCP - General 01/11/10 documented as of this encounter
--- OUTSIDE RECORDS SUMMARY | 2023-09-07 11:33 | XMS_ITS | Encounter Summary ---
Author Organization [facility] [place] [address] Care Team Providers Care Alley Cleaner Name Role Phone Trinh Coates MD Primary Care Provider [phone] Reason for Referral * Diagnostic Test (Emergency) - Closed Specialty Diagnoses / Procedures Referred By Diamante t Referred To Contact Radiology Diagnoses Surgery follow-up Procedures CTA Chest for Pulmonary Embolus w Contrast Jolene Azevedo APRN [facility] [address] [facility] [place] [address] Referral ID Status Reason Start Date Expiration Date V isits Requested Visits Authorized [id number] Closed Specialty Service Requested 05/10/2017 06/24/2017 1 1 Reason for Visit * Reason Comments Follow Up Surgery s/p breast recon, po ssible drain removal * Auth/Cert Specialty Diagnoses / Procedures Referred By Contac t Referred To Contact Diagnoses Abdominal wound dehiscence, initial encounter INFECTION Procedures ELA IPI Referral ID Status Reason Start Date Expiration Date Visits Re quested Visits Authorized [id number] 1 1 Encounter Details Date Type Department Care Team (Late st Contact Info) Description 05/10/2017 11:40 AM EDT Office Visit [place] [address] Jolene Azevedo APRN [facility] [place] [address] Surgery follow-up Social History Tobacco Use Types [...] Sign Reading Time Taken Comments Blood Pressure 152/100 05/10/2017 11:30 AM EDT Pulse 88 05/10/2017 11:30 AM EDT Temperature 37.1 ??C (98.8 ??F) 05/10/2017 11:30 AM E DT Respiratory Rate - - Oxygen Saturation 99% 05/10/2017 11:30 AM EDT Inhaled Oxygen Concentration - - Weight - - Height - - Body Mass Index - - documented in this encounter Progress Notes * Jolene Azevedo, SHELL MOLD BONDING MACHINE OPERATOR - 05/10/2017 11:40 AM EDT Plastic Surgery Post Op Note Reason for visit: F/U status post procedure Date of surgery: 04/30/17 Procedure(s): s/p bilateral breast reconstruction. Failed SIEA in OR. Placement of bilateral breasttissue expanders. Complications: flap failure, abdominal wound dehiscence. Chemotherapy: Radiation: Anticipated exchange date: Symmetry surgery: HPI: Pt reports that she is not doing well. She states that her abdomen has worsened and that two of her drains have lost suction. She has had a lot of drainage from her central abdominal wound. She states that her back feels full of fluid. She states that she has a lot of pressure in her chest/back/abdomen. She reports her shortness of breath has improved. She has concerns regarding her bilateral nipples that appear dark in color. Her skin is becoming sore from the tape. She continues to take Keflex. She does not have visiting nurses at this time. She has been taking Tylenol and Ibuprofen for her pain primarily. She reports temp elevated to 100.0 yesterday and didn't drink much. Examination: Temp-98.8 Pulse- 88 Blood pressure- 152/100 SpO2 - 98% Generally ill appearing. Short of breath. Patient is alert, conversant. Breast: Flaps well perfused. NAC grafts adherent, dusky. Incisions intact. Prolene sutures in place. Drains in place bilaterally with serous output. Abdomen: Umbilicus dusky. Central abdominal openin x 1.5 x 3 cm at the deepest. Drains palpable in base. Wound debrided sharply. 2 drains removed from abdomen. No erythema. No purulent drainage. Impression: Wendy Sandoval is a 51 y.o. female who was seen today for follow- up after the above procedure. Please see the operative note for details. New delayed healing in Abdomen. Debrided today. Will begin packing with VNA. Generally, not well appearing with shortness of breath. Will get spiral CT to r/o PE. Plan: 1. CT now to rule out PE 2. CBC, BMP 3. Continue using Silvadene on NAC grafts and umbilicus. 4. Begin to back central abdominal wound with saline moistened gauze. Change 1-2 times daily. 5. Arrange for visiting nurses. 6. Leave antimicrobial drain dressing in place until your drain is removed. 7. Do not shower until 24 hours after your last drain has been removed. 8. Continue antibiotics until 24 hours after you last drain is removed, call for a refill if needed. 9. Limit activities: do not lift > 5 pounds, no pushing, no pulling, no bouncing or running, no chest engaging activities such as push-ups or plank. I, Kam Miranda, am acting as scribe for Jolene Azevedo APRN. All work documented was performed byJolene Aezvedo APRN ???I performed the above scribed service and agree with the accuracy of the note?? JOLENE AZEVEDO APRN documented in this encounter Miscellaneous Notes * Addendum Note - Tono Cotter - 05/10/2017 2:08 PM EDTAddended by: TONO COTTER on: 05/10/2017 02:08 PM Modules accepted: Orders documented in this encounter Plan of Treatment Upcoming Encounters Date Type Department Care Team (Late st Contact Info) Description 01/22/2024 10:30 AM EST Appointment Mammography/[place] [address] Ladi Mendosa MD [facility] HEMATOLOGY/[place] [address] 01/30/2024 11:30 AM EST Office Visit Dermatology at [facility] [address] [place] [address] Nilda Luis MD [facility] DR L[place] [address] 02/15/2024 9:30 AM EST Appointment [place] [address] [place] [address] documented as of this encounter Procedures Procedure Name Priority Date/Time Associated Diagnosis Comments SCAN, PERIPHERAL BLOOD Routine 05/10/2017 2:13 PM EDT HEMOGRAM Routine 05/10/2017 2:13 PM EDT Surgery follow-up DIFFERENTIAL, AUTOMATED Routine 05/10/2017 2:13 PM EDT Surgery follow-up CBC (WITH DIFF) Routine 05/10/2017 2:13 PM EDT Surgery follow-up BASIC METABOLIC PANEL (NON-FASTING) Routine 05/10/2017 2:13 PM EDT Surgery follow-up documented in this encounter Results * Scan, Peripheral Blood (05/10/2017 2:13 PM EDT) Plat Estimate Increased [facility] RBC Morphology Normal [facility] Blood specimen (specimen) 05/10/2017 2:13 PM EDT 05/10/2017 2:18 PM EDT Narrative Resulting Agency Comment Spec In Lab Jolene E Roberto Carlos BROUSSARD HEMATOLOGY ORDERABLE S [facility] [place] [address] * (ABNORMAL) Differential, Automated (05/10/2017 2:13 PM EDT) Neutrophils % 72.4 % [facility] Neutr Abs (ANC) 14.37(H) 1.70 - 6.10 x10(3)/ L [facility] Lymphocytes % 13.4 % [facility] Lymphocytes Abs 2.7 0.9 - 3.2 x10(3)/[facility] Monocytes % 7.8 % [facility] Monocyte Abs 1.5(H) 0.3 - 0.9 x10(3)/[facility] Eosinophils % 3.6 % [facility] Eosinophils Abs 0.7(H) 0.0 - 0.4 x10(3)/[facility] Basophils % 1.4 % [facility] Basophils Abs 0.3(H) 0.0 - 0.1 x10(3)/[facility] Immature Gran % 1.40 % [facility] Comment: Immature granulocytes(IG's)percentage and absolute count will include metamyelocytes, myelocytes, and promyelocytes. Blood smears from CBCs yielding IG's will be scanned manually for concordance. If this scan disagrees with the automated IG or if promyelocytes are noted, a manual differential will be performed. Nova Gran Abs 0.27(H) 0.00 - 0.04 x10(3)/ L [facility] Blood specimen (specimen) 05/10/2017 2:13 PM EDT 05/10/2017 2:18 PM EDT Narrative Resulting Agency Comment Spec In Lab Jolene E Azevedo SHELL MOLD BONDING MACHINE OPERATOR HEMATOLOGY ORDERABLE S [facility] [place] [address] * (ABNORMAL) Hemogram (05/10/2017 2:13 PM EDT) Pathologist [facility] WBC 19.8(H) 4.0 - 9.5 x10(3)/[facility] RBC 3.93(L) 4.00 - 5.21 x10(6)/[facility] Hemoglobin 12.5 11.7 - 15.5 gm/dL [facility] Hematocrit 36.8 35.7 - 45.8 % [facility] MCV 93.6 82.6 - 94.4 [facility] MCH 31.8 27.1 - 32.0 pg [facility] MCHC 34.0 31.7 - 35.0 gm/dL [facility] Platelets 571(H) 145 - 357 x10(3)/[facility] RDWSD 46.3(H) 37.0 - 46.0 [facility] RDWCV 13.5 11.5 - 14.1 % [facility] MPV 8.3 7.6 - 12.9 [facility] nRBC % Auto 0.0 % [facility] nRBC Abs Auto 0.000 0.000 - 0.000 x10(3)/[facility] Blood specimen (specimen) 05/10/2017 2:13 PM EDT 05/10/2017 2:18 PM EDT Narrative Resulting Agency Comment Spec In Lab Jolene Azevedo APRN HEMATOLOGY ORDERABLE S [facility] [place] [address] * (ABNORMAL) Basic Metabolic Panel (non-fasting) (05/10/2017 2:13 PM EDT) Pathologist [facility] Glucose Lvl 105 65 - 199 mg/dL [facility] Comment:Diabetes: >=200 mg/d L plus symptoms BUN 20(H) 8 - 18 mg/dL [facility] Creatinine 0.87 0.70 - 1.20 mg/dL [facility] Sodium 141 135 - 145 mmol/L [facility] Potassium 3.4(L) 3.5 - 5.0 mmol/L [facility] Comment: Please note: ??Patients with WBC >100,000 may have falsely elevated Potassium levels. ??For accurate Potassium quantification in these patients send serum separator tube (gold top) for subsequent determinations. ??Contact the Clinical Chemistry Laboratory if there are any questions. Chloride 100 98 - 107 mmol/L [facility] CO2 25 22 - 31 mmol/L [facility] Anion Gap 16(H) 5 - 15 mmol/L [facility] Calcium 8.6 8.5 - 10.5 mg/dL [facility] Estimated GFR >60 >=60 [facility] Comment: The reported eGFR should be multiplied by 1.2 for patients. The MDRD is not an appropriate measure of renal function for patients with body mass extremes or in patients with acute kidney failure. http://[employer]/DHnkdep http://[employer]/DHMCnkf Blood specimen (specimen) 05/10/2017 2:13 PM EDT 05/10/2017 2:18 PM EDT Narrative Resulting Agency Comment Spec In Lab Jolene Azevedo APRN CHEMISTRY ORDERABLES [facility] [place] [address] * CTA Chest for Pulmonary Embolus w Contrast (05/10/2017 1:05 PM EDT) Anatomical Region Laterality Modality Chest Computed Tomogra phy Impressions 05/10/2017 1:28 PM EDT 1. ??Limited study secondary to suboptimal timing of contrast bolus and respiratory motion. No large central pulmonary embolus. No CT evidence of right heart strain. 2. ??Postoperative changes status post bilateral breast reconstruction with parasternal soft tissue thickening corresponding to sternal lungs or hematomas. 3. ??6.0 x 2.8 x 6.6 cm collection in the left axilla surrounded by some postsurgical change. This is likely a postsurgical collection, the sterility of which cannot be determined by CT appearance alone. Correlate with clinical and laboratory signs of infection/inflammation. Narrative 05/10/2017 1:28 PM EDT EXAMINATION: CTA chest for pulmonary arteries CLINICAL HISTORY: ? ??PE 2 weeks s/p 17 hour operation. TECHNIQUE: 3 mm thick axial contiguous sections were obtained through the chest via helical acquisition after the intravenous administration of 53 cc of Omnipaque-350. Thin-section reconstructions as well as coronal and sagittal MIP reformatted images were generated to aid in evaluation. COMPARISON: CT chest 04/11/2017 FINDINGS: Pulmonary arteries: Limited evaluation of pulmonary artery secondary to suboptimal timing of the contrast bolus. No large central pulmonary embolus. Evaluation is also limited by respiratory motion. No pulmonary arterial filling defects. No dilatation of the right ventricle or bowing of the interventricular septum. Other cardiovascular structures: Normal caliber of the ascending thoracic aorta and main pulmonary artery. No pericardial effusion. Pulmonary parenchyma: No masses or nodules. Dependent atelectasis bilaterally. Airways: No significant findings. Pleura: No significant findings. Lymph nodes: No mediastinal or hilar lymphadenopathy. No axillary lymphadenopathy. There are postsurgical changes status post left axillary surgery, with a 6.0 x 2.8 x 6.6 cm collection in the left axilla. Stranding in the left subpectoral and axillary presumably reflect postsurgical change, but an infectious/inflammatory process is not excluded. Other mediastinal structures: No mediastinal or hilar lymphadenopathy. Upper abdomen: No significant findings. Skeletal structures: No significant findings. Chest wall: Postoperative changes status post breast reconstruction with bilateral tissue expanders. There is parasternal thickening of the anterior chest wall measuring slightly higher than fluid attenuation, possibly representing postoperative seromas or hematomas in the chest wall (series 7, image 25). Procedure Note Kam Keller MD - 05/10/2017 EXAMINATION: CTA chest for pulmonary arteries CLINICAL HISTORY: ? PE 2 weeks s/p 17 hour operation. TECHNIQUE: 3 mm thick axial contiguous sections were obtained through thechest via helical acquisition after the intravenous administration of 53 cc of Omnipaque-350. Thin-section reconstructions as well as coronal andsagittal MIP reformatted images were generated to aid in evaluation. COMPARISON: CT chest 04/11/2017 FINDINGS: Pulmonary arteries: Limited evaluation of pulmonary artery secondary to suboptimal timing of the contrast bolus. No large central pulmonaryembolus. Evaluation is also limited by respiratory motion. No pulmonary arterialfilling defects. No dilatation of the right ventricle or bowing of the interventricularseptum. Other cardiovascular structures: Normal caliber of the ascending thoracicaorta and main pulmonary artery. No pericardial effusion. Pulmonary parenchyma: No masses or nodules. Dependent atelectasisbilaterally. Airways: No significant findings. Pleura: No significant findings. Lymph nodes: No mediastinal or hilar lymphadenopathy. No axillary lymphadenopathy. There are postsurgical changes status post leftaxillary surgery, with a 6.0 x 2.8 x 6.6 cm collection in the left axilla.Stranding in the left subpectoral and axillary presumably reflect postsurgical change,but an infectious/inflammatory process is not excluded. Other mediastinal structures: No mediastinal or hilar lymphadenopathy. Upper abdomen: No significant findings. Skeletal structures: No significant findings. Chest wall: Postoperative changes status post breast reconstruction with bilateral tissue expanders. There is parasternal thickening of theanterior chest wall measuring slightly higher than fluid attenuation, possibly representing postoperative seromas or hematomas in the chest wall (series7, image 25). IMPRESSION 1. Limited study secondary to suboptimal timing of contrast bolus and respiratory motion. No large central pulmonary embolus. No CT evidence ofright heart strain. 2. Postoperative changes status post bilateral breast reconstructionwith parasternal soft tissue thickening corresponding to sternal lungs orhematomas. 3. 6.0 x 2.8 x 6.6 cm collection in the left axilla surrounded by some postsurgical change. This is likely a postsurgical collection, thesterility of which cannot be determined by CT appearance alone. Correlate with clinicaland laboratory signs of infection/inflammation. Jolene Azevedo APRN IMG CT ORDERABLES documented in this encounter Visit Diagnoses Diagnosis Surgery follow-up Follow-up examination, following unspecified surgery Surgery follow-up Follow-up examination, following unspecified surgery documented in this encounter Care Teams Alley Cleaner Relationship Specialty Start Date End Date Trinh Coates MD [address] [place] [address] PCP - General 01/11/10 documented as of this encounter
--- OUTSIDE RECORDS SUMMARY | 2023-09-07 11:33 | XMS_ITS | Encounter Summary ---
Author Organization [facility] Address [facility] [place] [address] Care Team Providers Care Lead Warehouse Associate Name Role Phone Trinh Coates MD Primary Care Provider [phone] Encounter Details Date Type Department Care Team (Late st Contact Info) Description 05/10/2017 Orders [place] [address] Gerri Kendrick, RN S/P breast reconstruction, bilateral Social History Tobacco [...] 01/22/2024 10:30 AM EST Appointment Mammography[place] [address] Ladi Mendosa MD [facility] [place]ATOLOGY[place] [address] 01/30/2024 11:30 AM EST Office Visit Dermatology at [facility] [address] [place] [phone] Nilda Luis MD [facility] DR [place] [address] 02/15/2024 9:30 AM EST [place] [phone] [place] [address] documented as of this encounter Visit Diagnoses Diagnosis S/P breast reconstruction, bilateral Breast replaced by other means documented in this encounter Care Teams Lead Warehouse Associate Relationship Specialty Start Date End Date Trinh Coates MD [address] [facility] [address] [place] [address] PCP - General 01/11/10 documented as of this encounter
--- OUTSIDE RECORDS SUMMARY | 2023-09-07 11:33 | XMS_ITS | Encounter Summary ---
Author Organization [facility] Address [facility] [place] [address] Care Team Providers Care Brewery Pumper Name Role Phone Trinh Coates MD Primary Care Provider [phone] Encounter Details Date Type Department Care Team (Latest Contact Info) Description 05/09/2017 Multidisciplinary Ca re Committee [place] [address] Jolie Menendez MD [facility] [place] [address] Social History Tobacco Use Types Packs/Day Years Used Date Smoking Tobacco: Former Smokeless Tobacco: Never Alcohol Use Standard Drinks/Week Comments Yes 0 (1 standard drink = 0.6 oz pur e alcohol) socially Sex and Gender Information Value Date Recorded Sex Assigned at Not on file Gender Identity Not on file Sexual Orientation Not on file documented as of this encounter Progress Notes * Jolie Menendez MD - 05/09/2017 12:29 PM EDT Breast - Tumor Board Note Date Presented: 05/09/2017 Presenting Physician: Gemma Diagnosis/Tumor Site: Is this Metastatic Disease: No Synopsis of History/HPI:Wendy is a 51 who presented for screening mammogram in February,. This revealed a new mass in the upper, outer left breast. Call back imaging confirmed a suspicious 2cm mass. The right breast was normal. Biopsy revealed strongly ER/ME+, HER2- IDC. MRI was then obtainedfor surgical planning. This revealed a possible second lesion 2 cm from the index lesion as well asabnormal appearing nodes. The right breast was normal. Biopsy of the node was positive. Wendy has a strong family history of cancer (breast and colon). She opted for bilateral mastectomy with immediate reconstruction (SALVADOR converted to boatswain mate). Pathology revealed: 4/18 nodes with focal SANGEETHA 2.0 cm IDC Margin < 1mm to deep Clinical trials: PALLAS, aspirin trial, exercise trial Options Discussed: recommend ddAC-T followed by endocrine therapy. recommend PMRT Recommendations: Medical Oncology consult, Radiation Oncology consult and PT and genetic counseling DISCLAIMER: The patient was discussed and the tumor board made recommendations but it is ultimatelyup to the treatment provider(s) and the patient to determine the patient???s care. documented in this encounter Plan of Treatment Upcoming Encounters Date Type Department Care Team (Late st Contact Info) Description 01/22/2024 10:30 AM EST Appointment Mammography/DXA at [place] [phone] Ladi Mendosa MD [facility] HEMATOLOGY/[place] [address] 01/30/2024 11:30 AM EST Office Visit Dermatology at [address] [address] Nilda Luis MD [facility] DR L[address] [address] 02/15/2024 9:30 AM [place] [address] [place] [address] documented as of this encounter Visit Diagnoses Not on filedocumented in this encounter Care Teams Brewery Pumper Relationship Specialty Start Date End Date Trinh Coates MD [address] [place] [address] PCP - General 01/11/10 documented as of this encounter
--- OUTSIDE RECORDS SUMMARY | 2023-09-07 11:33 | XMS_ITS | Encounter Summary ---
Author Organization [facility] [place] [address] Care Team Providers Care Weather Algorithm Scientist Name Role Phone Trinh Coates MD Primary Care Provider [phone] Reason for Referral * Diagnostic Test (Routine) - Closed Specialty Diagnoses / Procedures Referred By Diamante marin Referred To Contact Cardiology Diagnoses Malignant neoplasm of upper-outer quadrant of left breast in female, estrogen receptor positive Hyperparathyroidism Essential hypertension Depression, unspecified depression type Obstructive sleep apnea (adult) (pediatric) Procedures Echocardiogram Transthoracic(Leb) Bobby Harrison MD [facility] DR HEMATOLOGY/[place] [address] [facility] [place] [address] Referral ID Status Reason Start Date Expiration Date V isits Requested Visits Authorized [id number] Closed Specialty Service Requested 05/22/2017 05/22/2018 1 1 Reason for Visit * Reason Comments Follow-up Encounter Details Date Type Department Care Team (Late st Contact Info) Description 05/21/2017 12:30 PM EDT Office Visit Hematology [place] [address] Bobby Harrison MD [facility] DR HEMATOLOGY/[place] [address] Rasheeda Trent RN Malignant neoplasm of upper-outer quadrant of left breast in female, estrogen receptor positive; Hyperparathyroidism; Essential hypertension; Depression, unspecified depression type; Obstructive sleep apnea (adult) (pediatric) Social History Tobacco Use Types Packs/Day Years [...] Sign Reading Time Taken Comments Blood Pressure 135/83 05/21/2017 12:43 PM EDT Pulse 77 05/21/2017 12:43 PM EDT Temperature 36.8 ??C (98.2 ??F) 05/21/2017 12:43 PM E DT Respiratory Rate 17 05/21/2017 12:43 PM EDT Oxygen Saturation 96% 05/21/2017 12:43 PM EDT Inhaled Oxygen Concentration - - Weight 79.2 kg (174 lb 9.6 oz) 05/21/2017 12:43 PM EDT Height 152.4 cm (5') 05/21/2017 12:43 PM EDT Body Mass Index 34.1 05/21/2017 12:43 PM EDT documented in this encounter Progress Notes * Bobby Harrison MD - 05/21/2017 12:30 PM EDT Oncology - Consultation Note History of Present Illness: ROSEMARY Nguyen is a 51-year-old woman with a recent diagnosis of node positive breast cancer, referred by Dr. Coates for consultation and treatment recommendations. She presented due to screening mammography, 03/08, this revealing a suspicious 2 cm nodule in the upper outer quadrant left breast. Right breast was unremarkable. Core biopsy demonstrated invasive cancer, ER/KY positive, HER- 2/pat negative. Breast MRI demonstrated additional findings as per the full report. She was seen in surgery and has undergone now bilateral MRM and D IEP reconstruction, as noted below she does have a significant family history of breast cancer. She did have a complication in apparently a nicking of her pleura duringher procedure which was operatively repaired. She additionally has developed complications with delayed wound healing and possibly postop infection of her abdominal wound she had a wound VAC placed last week. She has remained afebrile and is on antibiotics as well. Family history: Mother was diagnosed with breast cancer at the age of 71. Maternal aunt was diagnosed she thinks initially with breast cancer at the age of 39 and with a contralateral primary at the age of 50. Maternal cousin presented she thinks in her mid to late 40s with stage IV metastatic breast cancer. She thinks 1 of her family members has undergone genetic testing and understands it to beunremarkable though she thinks possibly another relative had from what I can get from her history potentially a variant of unknown significance. 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 The been fairly unremarkable since that. She has no other significant hormonal medication use Social history: She has a distant past history of cigarette use quitting about 20 or 25 years ago. She drinks EtOH rarely. 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 Her accompanied her to her appointment today. Review of Systems: Review of Systems Except as noted above, Wendy Pantoja full remaining review of systems, including constitutional, cardiac, pulmonary, GI, , neurologic, musculskeletal, and all remaining, is otherwise fully unremarkable. Past Medical and Surgical History: Past Medical History: Diagnosis Date ??? Fibrocystic [...] LARYNGEAL performed by Valentina Lucas MD at [facility] MAIN OR ??? PRO BREAST RECONSTRUC W FREE FLAP Bilateral 04/26/2017 @BREAST RECONSTRUCTION W/ FREE FLAP, SUSAN (WRVU 42.58) performed by Andre Gimenez MD at [facility] [place]D ??? PRO BREAST RECONSTRUC W TISS EXPANDR Bilateral 04/26/2017 BREAST RECONSTRUCTION, IMMEDIATE OR DELAYED, W/ TISSUE ROLL CLEANER, INCLUDING SUBSEQUENT EXPANSION (WRVU 18.5) performed by Andre Gimenez MD at [facility] MAIN OR ??? PRO EXPLORE PARATHYROID GLANDS N/A 11/02/2015 PARATHYROIDECTOMY OR EXPLORATION OF PARATHYROID(S) performed by Valentina Lucas MD at [facility] OR ? ? PRO FULL THICK GRFT TRUNK <20 SQCM Bilateral 04/26/2017 FTSG, FREE, DIR CLOSE DONOR SITE, TRUNK, 20 SQ CM OR LESS (WRVU 9.15) performed by Andre Gimenez MD at [facility] OR ??? PRO MASTECTOMY, SIMPLE, COMPLETE Bilateral 04/26/2017 MASTECTOMY, SIMPLE, COMPLETE-SUSAN (WRVU 15.85) performed by Jolie Menendez MD at [facility] OR ??? PRO PARTIAL REMOVAL OF RIB Bilateral 04/26/2017 EXCISION OF RIB, PARTIAL (WRVU 7.26) performed by Andre Gimenez MD at [facility] OR ??? PRO REMOVE ARMPITS LYMPH NODES COMPLT Left 04/26/2017 LYMPHADENECTOMY, AXILLARY, COMPLETE (WRVU 13.87) performed by Jolie Menendez MD at [facility] OR ??? PRO THYMECTOMY, TRANSCERVICAL N/A 11/02/2015 THYMECTOMY, TRANSCERVICAL APPROACH performed by Valentina Lucas MD at [facility] OR ??? SHOULDER SURGERY Left ??? UMBILICAL HERNIA REPAIR Medications: Current Outpatient Prescriptions: ??? clindamycin (CLEOCIN) 300 mg Capsule, Take 1 capsule by mouth 3 times daily for 7 days., Disp: 21 capsule, Rfl: 0 ??? silver sulfADIAZINE (SILVADENE) 1 % Cream, Apply topically 2 times daily., Disp: 50 g, Rfl: 0 ??? ondansetron (ZOFRAN) 4 mg Tablet, Take 1 tablet by mouth every 8 hours as needed for Nausea., Disp: 20 tablet, Rfl: 0 ??? Lactobacillus (BACID) 0.5 mg (100 million cell) Tablet, Take 1 tablet by mouth daily., Disp: 30tablet, Rfl: 0 ??? valsartan-hydrochlorothiazide (DIOVAN-HCT) 160-12.5 mg Tablet, Take 1 tablet by mouth daily., Disp: , Rfl: ??? levothyroxine (SYNTHROID) 112 mcg Tablet, Take 1 tablet by mouth daily., Disp: , Rfl: 0 ??? atorvastatin (LIPITOR) 20 mg Tablet, Take 1 tablet by mouth daily., Disp: , Rfl: 0 ??? triamcinolone (ARISTOCORT) 0.5 % Cream, Apply topically 3 times daily., Disp: , Rfl: ??? acetaminophen (TYLENOL) 325 mg Tablet, Take 2 tablets by mouth every 4 hours as needed for Pain., Disp: , Rfl: ??? DILTiazem (CARDIZEM CD) 240 mg Capsule, Sust. Release 24 hr, Take 1 capsule by mouth daily., Disp: , Rfl: ??? ferrous gluconate 324 mg (37.5 mg iron) Tablet, Take 324 mg by mouth daily., Disp: , Rfl: ??? clobetasol (TEMOVATE) 0.05 % Cream, Apply to affected areas on knees, elbows and hands twice daily for two week cycles as needed., Disp: 60 g, Rfl: 3 ??? fluoxetine (PROZAC) 40 mg capsule, daily., Disp: , Rfl: ??? KLOR-CON M20 20 mEq extended release tablet, 2 times daily., Disp: , Rfl: ??? norethindrone (AYGESTIN) 5 mg Tablet, Take 1 tablet by mouth daily., Disp: , Rfl: Prior To Admission Medications: (Not in a hospital admission) Allergies: Allergies Allergen Reactions ??? Pcn [Penicillins] ??? Zoloft [Sertraline] PSORIASIS FLARE Family History: Family [...] his 60's ??? Ovarian Cancer Neg Hx Social History and Habits: Social History Social History ??? Marital status: Spouse name: N/A ??? Number of children: N/A ??? Years of education: N/A Occupational History ??? Not on file. Social History Main Topics ??? Smoking status: Former Smoker ??? Smokeless tobacco: Never Used ??? Alcohol use Yes Comment: socially ??? Drug use: No ??? Sexual activity: Not on file Other Topics Concern ??? Not on file Social History Narrative Physical Exam: Last Set of Vitals and Range over past 24 hours: Last value Range last 24 hrs Temperature Temp: 36.8 ??C (98.2 ??F) Temp: [36.8 ??C (98.2 ??F)] Heart Rate Heart Rate: 77 Heart Rate: [77] Blood Pressure BP: 135/83 BP: (135)/(83) Respiratory Rate Resp: 17 Resp: [17] SpO2 SpO2: 96 % SpO2: [96 %] Weight: 79.2 kg (174 lb 9.6 oz) Physical Exam Objective: Wendy Sandoval is well appearing and in no acute distress. HEENT: Unremarkable. Musculoskeletal Exam: Normal range of motion, otherwise overall within normal limits as well. Back without CVA or spinal tenderness to percussion or palpation. Chest: Overall clear to percussion and ascultation. Nodes: No peripheral adenopathy is present. Cor: RRR, S1, S2. No murmur, rub, or S3 present. Breast Exam: Deferred, s/p B MRM and SALVADOR recon, bandages still in place. Abdomen: Bowel sounds unremarkable, soft, nontender with no palpable HSM or other abnormalities. Extremities without significant cyanosis, clubbing, or edema. Neurologic Exam: Alert and oriented, grossly nonfocal, cranial nerve's III - XII unremarkable, DTR's symmetric throughout. Laboratory (Last 24 Hours): No results found for this or any previous visit (from the past 24 hour(s)). Recommendations: Problem list: 1. Invasive ductal carcinoma, left breast, 04/08. A. 2.0 cm cancer, high-grade, grade 3. ER/KY plus plus plus, HER-2/pat negative, 4/18 nodes (1/ 18 additional nodes with ITC). Alvei negative. B. S/P left MRM and D IEP recon. 1. Abdominal wound dehiscence and possible infection. C. S/P right prophylactic MRM and deep reconstruction, pathology benign. Wendy is in summary a 51-year-old premenopausal woman with recent diagnosis of locally advanced breast cancer with pathology as described above in detail. She is having some postoperative complications as noted above. Her drains are still in place and she did have a wound VAC placed. I reviewed however with her and her in some detail her pathology and workup to date which has a number of questions about. I have recommended proceeding with dose dense AC/Taxol and we reviewed the side effect profile, and risks/benefits of this regimen in some detail. We will proceed with a chemotherapy teaching appointment along with a baseline echocardiogram. She is scheduled for a radiation consultation as well. We will have to see how she recuperates and heals up from her abdominal wound I think in regards to timing of either her chemotherapy and/or radiation therapy. She does have she thinkspoor venous access and will discuss further at her chemo teaching appointment proceeding with the Mediport which I reviewed somewhat with her and her today. She of course should also receive therapy with adjuvant hormonal treatment and we briefly touched on Palritika, our phase 3 adjuvant trial which may or may not still be enrolling patients at the time that she comes to this being a study for consideration. Finally I recommend proceeding with a consultation in the familial cancer programas well. BOBBY HARRISON MD05/22/2017 documented in this encounter Plan of Treatment Upcoming Encounters Date Type Department Care Team (Late st Contact Info) Description 01/22/2024 10:30 AM EST Appointment Mammography/[place] [address] Ladi Mendosa MD [facility] HEMATOLOGY/[place] [address] 01/30/2024 11:30 AM EST Office Visit Dermatology at [place] [address] [place] [address] Nilda Luis MD [facility] [address] [place] [address] 02/15/2024 9:30 AM EST Appointment [place] [phone] [place] [address] documented as of this encounter Results * ECHO LMTD W/O CONTRAST W LMTD SPEC DOPP COLOR DOPP (06/01/2017 2:59 PM EDT) EF 70 HEARTLAB SYSTEM Anatomical Region Laterality Modality Other 06/01/2017 Narrative 06/01/2017 3:02 PM EDT Procedure: ?Transthoracic Echocardiogram Patient: ?CORINA Lanier ? (Age): 1965(51y) Med Rec#: ? [id number] ?Sex: ?F ? Site Loc: ? [facility] ?Ht / Wt: ??152(cm)/79.2(kg Pt. Loc: ?Echo Lab ?BSA: ?1.76 Study Date: ?? 06/01/2017 ?Pt. Type: Outpatient Tape: ? Referring: KENZIE Reading: Javier Donohue ([id number]) Palletizer: Tammy Gonzalez Diagnosis: *ICD-10-PCS Malignant neoplasm of upper-outer quadrant of left female breast (C50.412) *ICD-10-PCS Essential (primary) hypertension (I10) *ICD-10-PCS Major depressive disorder, single episode, unspecified (F32.9) *ICD-10-PCS Obstructive sleep apnea (adult) (pediatric) (G47.33) *ICD-10-PCS Hyperparathyroidism, unspecified (E21.3) BP: ? 130/80 SUMMARY: 1. Technically difficult study. 2. Mild concentric [...] See remainder of report for additional findings. Findings ? : Left Ventricle: ? The left ventricular chamber size is normal. ?Mild concentric left ventricular hypertrophy is observed. ?There is normal global left ventricular systolic function. ??Ejection fraction is estimated to be 70%. ?There are no left ventricular segmental wall motion abnormalities. Left Atrium: ? The left atrium is not well visualized. Right Ventricle: ? The right ventricle is probably normal in size. ?Right ventricular global systolic function is probably normal. ?Pulmonary artery hypertension could not be assessed due to inadequate tricuspid regurgitation jet. ?The estimated right atrial pressure is 3 mmHg. Right Atrium: ? The right atrium is not well visualized. Aortic Valve: ? The aortic valve is trileaflet. The leaflets are thin with normal excursion. There is no aortic stenosis or regurgitation present. Mitral Valve: ? The mitral valve appears normal in structure and function. ?There is trace mitral regurgitation present. Tricuspid Valve: ? The tricuspid valve leaflets are morphologically normal. ?Doppler evaluation of tricuspid valve regurgitation is inadequate. Pulmonic Valve: ? The pulmonic valve is probably normal. ?There is no evidence of pulmonic regurgitation. Pericardium: ? The pericardium appears normal and there is no evidence of a pericardial effusion. Aorta: ? The aortic root is normal in size. ?The ascending aorta was not well visualized. Pulmonary Artery: ? The main pulmonary artery is probably normal in size. Venous: ? The inferior vena cava appears normal in size. ?There is a greater than 50% respiratory change in the inferior vena cava dimension. Misc: ? The cardiac valves appear structurally and functionally normal. ?Technically difficult study. ?See remainder of report for additional findings. ?Two-dimensional echo, limited spectral Doppler and color Doppler performed. Chambers 2D ?Value ?Units (Range) ? IVSd (2D) ? 1.2 ?cm ? LVPWd (2D) ?1.1 ?cm ? LVIDd (2D) ?4.6 ?cm ? LVIDs (2D) ?2.9 ?cm ? LV FS (2D) ?37.1 ? % ? EF Teichholz (2D) ?? 67.1 ? % ? Ao root diameter (2D2.8 ?cm (2.1 - 3.6) ? Tricuspid Valve ?Value ?Units (Range) ? RAP ? 3 ?mmHg ? Wall Motion: Segment Name ?Rest ? Base-Anteroseptal ?? Normal ? Base-Anterior ? Normal ? Base-Anterolateral ??Normal ? Base-Posterolateral Normal ? Base-Inferior ? Normal ? Base-Inferoseptal ?? Normal ? Mid-Anteroseptal ?Normal ? Mid-Anterior ?Normal ? Mid-Anterolateral ?? Normal ? Mid-Posterolateral ??Normal ? Mid-Inferior ?Normal ? Mid-Inferoseptal ?Normal ? [place]-Septal ? Normal ? [place]-Anterior ? Normal ? [place]-Lateral ?Normal ? [place]-Inferior ? Normal ? [place]-Tip ?Normal ? This report has been electronically signed by: Javier Donohue M.D. ? 06/01/2017 15:02:16 Images reviewed and interpretation verified [facility] Cardiac Ultrasound Laboratory Procedure Note Javier Donohue MD - 06/01/2017 Procedure: Transthoracic Echocardiogram Patient: CORINA Lanier DOB(Age): 1965(51y) Med Rec#: [id number] Sex: F Site Loc: [facility] Ht / Wt: 152(cm)/79.2(kg Pt. Loc: Echo Lab BSA: 1.76 Study Date: 06/01/2017 Pt. Type: Outpatient Tape: Referring: HUNTERESTELA Reading: Javier Donohue ([id number]) Palletizer: Tammy Gonzalez Diagnosis: *ICD-10-PCS Malignant neoplasm of upper-outer quadrant of left female breast (C50.412) *ICD-10-PCS Essential (primary) hypertension (I10) *ICD-10-PCS Major depressive disorder, single episode, unspecified (F32.9) *ICD-10-PCS Obstructive sleep apnea (adult) (pediatric) (G47.33) *ICD-10-PCS Hyperparathyroidism, unspecified (E21.3) BP: 130/80 SUMMARY: 1. Technically difficult study. 2. Mild concentric [...] See remainder of report for additional findings. Findings : Left Ventricle: The left ventricular chamber size is normal. Mild concentric left ventricular hypertrophy is observed. There is normal global left ventricular systolic function. Ejection fraction is estimated to be 70%. There are no left ventricular segmental wall motion abnormalities. Left Atrium: The left atrium is not well visualized. Right Ventricle: The right ventricle is probably normal in size. Right ventricular global systolic function is probably normal. Pulmonary artery hypertension could not be assessed due to inadequate tricuspid regurgitation jet. The estimated right atrial pressure is 3 mmHg. Right Atrium: The right atrium is not well visualized. Aortic Valve: The aortic valve is trileaflet. The leaflets are thin with normal excursion. There is no aortic stenosis or regurgitation present. Mitral Valve: The mitral valve appears normal in structure and function. There is trace mitral regurgitation present. Tricuspid Valve: The tricuspid valve leaflets are morphologically normal. Doppler evaluation of tricuspid valve regurgitation is inadequate. Pulmonic Valve: The pulmonic valve is probably normal. There is no evidence of pulmonic regurgitation. Pericardium: The pericardium appears normal and there is no evidence of a pericardial effusion. Aorta: The aortic root is normal in size. The ascending aorta was not well visualized. Pulmonary Artery: The main pulmonary artery is probably normal in size. Venous: The inferior vena cava appears normal in size. There is a greater than 50% respiratory change in the inferior vena cava dimension. Misc: The cardiac valves appear structurally and functionally normal. Technically difficult study. See remainder of report for additional findings. Two-dimensional echo, limited spectral Doppler and color Doppler performed. Chambers 2D Value Units (Range) IVSd (2D) 1.2 cm LVPWd (2D) 1.1 cm LVIDd (2D) 4.6 cm LVIDs (2D) 2.9 cm LV FS (2D) 37.1 % EF Teichholz (2D) 67.1 % Ao root diameter (2D2.8 cm (2.1 - 3.6) Tricuspid Valve Value Units (Range) RAP 3 mmHg Wall Motion: Segment Name Rest Base-Anteroseptal Normal Base-Anterior Normal Base-Anterolateral Normal Base-Posterolateral Normal Base-Inferior Normal Base-Inferoseptal Normal Mid-Anteroseptal Normal Mid-Anterior Normal Mid-Anterolateral Normal Mid-Posterolateral Normal Mid-Inferior Normal Mid-Inferoseptal Normal [place]-Septal Normal [place]-Anterior Normal [place]-Lateral Normal [place]-Inferior Normal [place]-Tip Normal This report has been electronically signed by: Javier Donohue M.D. 06/01/2017 15:02:16 Images reviewed and interpretation verified [facility] Cardiac Ultrasound Laboratory Bobby Harrison MD ECHO ORDERABLES documented in this encounter Visit Diagnoses Diagnosis Malignant neoplasm of upper-outer quadrant of left breast in female, estrogen receptor positive Hyperparathyroidism Hyperparathyroidism, unspecified Essential hypertension Unspecified essential hypertension Depression, unspecified depression type Obstructive sleep apnea (adult) (pediatric) Malignant neoplasm of upper-outer quadrant of left breast in female, estrogen receptor positive Hyperparathyroidism Hyperparathyroidism, unspecified Essential hypertension Unspecified essential hypertension Depression, unspecified depression type Obstructive sleep apnea (adult) (pediatric) documented in this encounter Care Teams Weather Algorithm Scientist Relationship Specialty Start Date End Date Trinh Coates MD [address] [place] [address] PCP - General 01/11/10 documented as of this encounter
--- OUTSIDE RECORDS SUMMARY | 2023-09-07 11:33 | XMS_ITS | Encounter Summary ---
Author Organization [facility] Address [facility] [place] [address] Care Team Providers Care Fretted Instruments Inspector Name Role Phone Trinh Coates MD Primary Care Provider [phone] Encounter Details Date Type Department Care Team (Late st Contact Info) Description 05/10/2017 Orders [place] [phone] Andre Gimenez MD [facility] [place] [address] S/P breast reconstruction Social History Tobacco Use [...] 01/22/2024 10:30 AM EST Appointment Mammography/[place] [phone] Ladi Mendosa MD [facility] HEMATOLOGY/[place] [address] 01/30/2024 11:30 AM EST Office Visit Dermatology at [facility] [address] [place] [address] Nilda Luis MD [facility] [address] [place] [address] 02/15/2024 9:30 AM [place] [address] [place] [address] documented as of this encounter Visit Diagnoses Diagnosis S/P breast reconstruction Breast replaced by other means documented in this encounter Care Teams Fretted Instruments Inspector Relationship Specialty Start Date End Date Trinh Coates MD [facility] [address] [place] [address] PCP - General 01/11/10 documented as of this encounter
--- OUTSIDE RECORDS SUMMARY | 2023-09-07 11:33 | XMS_ITS | Encounter Summary ---
Author Organization [facility] Address [facility] [place] [address] Care Team Providers Care Condominium Manager Name Role Phone Trinh Coates MD Primary Care Provider [phone] Reason for Visit * Reason Comments Radiation Consult * Consultation (Routine) - Closed Specialty Diagnoses / Procedures Referred By Diamante marin Referred To Contact Radiation Oncology Diagnoses Breast cancer Jolie Menendez MD [facility] [place] [address] St Rad Onc Office [address] [place] [phone] Referral ID Status Reason Start Date Expiration Date Visits Re quested Visits Authorized [id number] Closed 04/26/2017 04/26/2018 1 1 Encounter Details Date Type Department Care Team (Late st Contact Info) Description 06/04/2017 9:00 AM EDT Office Visit Radiation Oncology at [address] [phone] Emily Choi MD [facility] [place] [address] Malignant neoplasm of left female [...] Reading Time Taken Comments Blood Pressure 144/93 06/04/2017 8:59 AM EDT Pulse 71 06/04/2017 8:59 AM EDT Temperature 36.9 ??C (98.4 ??F) 06/04/2017 8 :59 AM EDT Respiratory Rate 6 06/04/2017 8:59 AM EDT Oxygen Saturation 98% 06/04/2017 8:5 9 AM EDT Inhaled Oxygen Concentration - - Weight 77.3 kg (170 lb 6.4 oz) 06/04/2017 8:59 AM EDT with shoes, room #4 Height - - Body Mass Index 32.09 06/01/2017 11:02 AM EDT documented in this encounter Progress Notes * Mayda Calvert, RN - 06/04/2017 9:00 AM EDT RADIATION ONCOLOGY NURSING INITIAL NURSING ASSESSMENT IDENTIFICATION: Wendy Sandoval is a 51 y.o. year-old female with left breast cancer. PRESENTING SYMPTOMS/CHIEF COMPLAINT: Abnormal screening mammogram. REVIEW OF SYSTEMS:Review of Systems Constitutional: Negative for unexpected weight change. Respiratory: Negative for shortness of breath. Cardiovascular: Negative for chest pain and palpitations. Gastrointestinal: Positive for nausea. Negative for constipation, diarrhea and vomiting. Neurological: Negative for light-headedness and headaches. IN THE PAST 12 MONTHS HAVE YOU: Fallen more than one time? No Injured yourself as result of the fall? N/A Experienced difficulty with walking/problems with balance? no Do you use any assistive devices? No (If patient does not know or declines to answer, please note in the 3 star option) If patient answered yes to any of the above, please offer to print out one of the following resources that may apply to them: Stay Independent http://www.cdc.gov/steadi/pdf/stay_independent_brochure-a.pdf What you can do to prevent falls http://www.cdc.gov/steadi/pdf/what_you_can_do_brochure-a.pdf Check for Safety-A home fall prevention checklist for older adults http://www.cdc.gov/steadi/pdf/check_for_safety_brochure-a.pdf Postural Hypotension-What is it and how to manage it http://www.cdc.gov/steadi/pdf/postural_hypotension-a.pdf Chair Rise Exercises to strengthen the muscles of things and buttocks http://www.cdc.gov/steadi/pdf/chair_rise_exercise-a.pdf Any Implanted Devices/Hardware: Port placement scheduled 06/06. If yes please put alert in ARIA patient summary Prior Radiotherapy: No Prior Chemotherapy: No Prior Hormone Therapy: No Drug(s): Physician/Location: RADIOLOGY SAFETY QUESTIONS REVIEWED: If applicable MRICTSAFETYQUESTIONS LEARNING ASSESSMENT REVIEWED: yes ADVANCED DIRECTIVE: Does not have directive. PAIN ASSESSMENT: 0 out of 10 *eD-H Adult PCS Flow Sheet if 4 or above SOCIAL ASSESSMENT: See EDH social assessment information entered. Support Systems: Spouse, Phillip. Family. Barriers to treatment: none identified. Referrals/Interventions: MANAGER WIRELESS on day of simulation. RADIATION SPECIFIC TEACHING: [facility] Radiation Therapy and You Site specific teaching : Site specific teaching to be done by nursing on day of simulation. Other: PLAN: Per Dr. Choi. * Emily Choi MD - 06/04/2017 9:00 AM EDT CC: Referred by Dr. Coates for eval for xrt for breast ca. HPI: 51 y/o f who presented after screening mmg showed L breast abnlty. 03/12/17 B screening mmg: Mass/focal asymmetry UO L breast. R breast nl. 03/20/17 dx'ic L mmg & L breast US: Highly suspicious 2 cm mass @ 2:00, 8 cm from nipple. 03/20/17 US guided needle core bx 1.9 cm L breast mass @ 2:00, 8 cm from nipple. Path: IDC, high gr, ER+VT+, Her2 FISH neg. 03/27/17 B breast MRI: 1.9 cm known L breast malignancy. 1.1 cm partially enhancing ovoid mass, 2 cm inferior to known malignancy, suspicious for malignancy. Suspicious L axillary lymphadenopathy. R breast nl. 03/29/17 US L breast & L axilla: Benign correlate for L breast lesion #2. Several morphologicallyabnl lymph nodes. 03/29/17 US guided needle core bx L axilla. Path: Lymph node w/met ca; tumor resembles recently dx'd L breast IDC.. 03/29/[address] Menendez 04/11/17 CTA abd/pelvis: Subcm & tiny hypodense liver lesions. Nonobstructing cholelithiasis. Renal cortical cysts. Small scar along deep surface of anterior periumbilical abdominal wall. 04/11/17 bone scan: No skeletal met. 04/18/17 MRI abd: 1. Hepatic & renal cysts. No liver masses concerning for mets. 2. Pancreas divisum. 3. Cholelithiasis. 04/26/17 B skin sparing mastectomies w/free nipple grafts & L level 1 & 2 axillary dissxn. Nolevel 3 L axillary adenopathy on palpation. B free flap recon attempted, but could not be done due to arterial flap spasms. B expanders placed. 1 drain placed on each side & brought through anterior axillary line skin. Small defect parietal & visceral pleura BRADLEY lung for which drain placed in L hemithorax; drain removed by end of reconstructive surgery. Path: R breast benign. L breast w/IDC, gr 3, 20 mm, +DCIS, RM neg, 18 axillary lymph nodes (3 w/macromets, 1 w/micromet, 1w/ITC, largest met 7 mm, +SANGEETHA), pT1c pN2a. R drain became partially dislodged. 04/30/17 new drain placed on R via existing tract. 05/09/17 Breast Tumor Bd: Rec for ddAC-T followed by endocrine tx; rec PMRT. 05/10/17 pt presented w/fevers, malaise, fatigue & was found to have L axillary fluid collection. 05/10/17 CTA for pulmonary arteries: 1. No large central PE. No R heart strain. 2. Postop changes s/p B breast recon w/parasternal soft tissue thickening corresponding to seromas/hematomas. 3. 6.0 x 2.8 x 6.6 cm collection in L axilla surrounded by some postsurgical change; likely a postsurgical collection, sterility of which cannot be determined by CT appearance. 05/11/17 US showed posterior L axillary fluid collection & w/US guidance IR aspirated 45 cc clear serous fluid w/trace amount fluid remaining. Increased axillary swelling. 05/14/17 US L axilla & L breast mount/implant: 3 flattened peripheral fluid collections deemed not significant around tissue rib puller. 5.5 x 2.7 x 4.5 cm postop seroma in L axilla. 05/14/17 US guided drain placement into L axillary fluid collection. 05/21/[address] Mota, w/rec for ddAC/T, endocrine tx & FCP eval. 05/25/17 IR check R breast drain & L axillary drain w/finding of no L axillary fluid collection & L axillary drain removed. 05/30/17 fu w/Rashaad Azevedo APRN [employer]. ROS: Healing ok. Periodically L breast rib puller is very tender (level 5 on 1-10 scale); tenderness relieved by 2 ES tylenol which decreases the pain to a level 1; has not taken any in a couple of days. No hand/arm swelling. ROM L arm around shoulder limited. Appetite ok. Energy level low, although strong enough to grocery shop. Accompanied by . Past Medical History: Diagnosis Date ??? Fibrocystic [...] LARYNGEAL performed by Valentina Lucas MD at [facility] MAIN OR ??? PRO BREAST RECONSTRUC W FREE FLAP Bilateral 04/26/2017 @BREAST RECONSTRUCTION W/ FREE FLAP, SUSAN (WRVU 42.58) performed by Andre Gimenez MD at [facility] [place] ??? PRO BREAST RECONSTRUC W TISS EXPANDR Bilateral 04/26/2017 BREAST RECONSTRUCTION, IMMEDIATE OR DELAYED, W/ TISSUE PRIVATE DUTY RN, INCLUDING SUBSEQUENT EXPANSION (WRVU 18.5) performed by Andre Gimenez MD at [facility] MAIN OR ??? PRO EXPLORE PARATHYROID GLANDS N/A 11/02/2015 PARATHYROIDECTOMY OR EXPLORATION OF PARATHYROID(S) performed by Valentina Lucas MD at [facility] MAIN OR ? ? PRO FULL THICK GRFT TRUNK <20 SQCM Bilateral 04/26/2017 FTSG, FREE, DIR CLOSE DONOR SITE, TRUNK, 20 SQ CM OR LESS (WRVU 9.15) performed by Andre Gimenez MD at [facility] MAIN OR ??? PRO MASTECTOMY, SIMPLE, COMPLETE Bilateral 04/26/2017 MASTECTOMY, SIMPLE, COMPLETE-SUSAN (WRVU 15.85) performed by Jolie Menendez MD at [facility] OR ??? PRO PARTIAL REMOVAL OF RIB Bilateral 04/26/2017 EXCISION OF RIB, PARTIAL (WRVU 7.26) performed by Andre Gimenez MD at [facility] OR ??? PRO REMOVE ARMPITS LYMPH NODES COMPLT Left 04/26/2017 LYMPHADENECTOMY, AXILLARY, COMPLETE (WRVU 13.87) performed by Jolie Menendez MD at [facility] MAIN OR ??? PRO THYMECTOMY, TRANSCERVICAL N/A 11/02/2015 THYMECTOMY, TRANSCERVICAL APPROACH performed by Valentina Lucas MD at [facility] OR ??? SHOULDER SURGERY Left ??? UMBILICAL HERNIA REPAIR Physical Exam Constitutional: She is oriented to person, place, and time. She appears well- developed and well-nourished. No distress. BP (!) 144/93 (Patient Position: Sitting) Pulse 71 Temp 36.9 ??C (98.4 ??F) (Oral) Resp (!) 6 Wt 77.3 kg (170 lb 6.4 oz) Comment: with shoes, room #4 SpO2 98% BMI 32.09 kg/m2 HENT: Head: Normocephalic and atraumatic. Eyes: Conjunctivae and EOM are normal. Right eye exhibits no discharge. Left eye exhibits no discharge. No scleral icterus. Neck: Normal range of motion. Neck supple. No tracheal deviation present. No thyromegaly present. Pulmonary/Chest: Effort normal and breath sounds normal. No stridor. No respiratory distress. She has no wheezes. She has no rales. She exhibits no tenderness. Abdominal: Soft. She exhibits no distension and no mass. There is no tenderness. There is no rebound and no guarding. Musculoskeletal: She exhibits no edema or tenderness. Decreased ROM arms aound shoulder, particularly on L, w/elevation/abduction/external rotation. Lymphadenopathy: Head (right side): No submental, no submandibular, no preauricular, no posterior auricular and no occipital adenopathy present. Head (left side): No submental, no submandibular, no preauricular, no posterior auricular and no occipital adenopathy present. She has no cervical adenopathy. She has no axillary adenopathy. Right: No supraclavicular adenopathy present. Left: No supraclavicular adenopathy present. Neurological: She is alert and oriented to person, place, and time. No cranial nerve deficit. She exhibits normal muscle tone. Coordination normal. Skin: She is not diaphoretic. Erythematous dry plaque like skin on L wrist & L hand which she says is psoriasis. Psychiatric: She has a normal mood and affect. Her behavior is normal. Judgment and thought contentnormal. A: Breast ca, L, IDC, gr 3, ER+VT+, Her2 FISH neg, s/p B skin sparing mastectomies w/B free nipple grafts & L ax dissxn; mmediate B free flap recon attempted but could not be done due to flap arterial spasms; expanders placed; pT1c pN2a, stage III. Adjuvant ddAC/T planned as well as endocrine tx. P: Xrt to L reconstructed breast/chest wall & draining lymphatics recommended to increase likelihood of ca control. Xrt would be comprised of 28 fxs. Xrt would start 3-4 wks after chemo completion or after rib puller exchange for implant. Possible side effects of xrt discussed, w/acute/immediate side effects including: Pinkening, soreness & peeling of skin in treated area; swelling of treated area; soreness of treated area; cough;shortness of breath; sore throat; sense of fullness in throat; swelling of L hand/arm, which could be permanent; numbness, tingling, weakness & difficulty coordinating L hand/arm; tiredness. To decrease risk of lymphedema, she was instructed to avoid bp measurement on L upper extremity, avoid needle sticks on L upper extremity, avoid lifting too heavy of objects with L upper extremity & to contact her physician if upper extremity turns pink or starts to swell. Late/terminologist side effects of xrt discussed include: Treated L reconstructed breast may tighten, become firmer & sit higher; achiness/stiffness of chest wall on treated side; possible small increase in risk of dying of heart disease; L sided rib fracture; CT after xrt may show scarring w/in small volume of lung on treated side; permanent swelling of L hand/arm; small risk of irradiation assoc iated 2nd malignancy. We discussed risk of rib puller/implant contracture/loss as well as risk of fat necrosis. Need for CTsim prior to xrt discussed. At CTsim, she will be evaluated for use of deep inspiration breath hold (DIBH) to decrease dose of xrt to heart. She would like to proceed w/plan for xrt & will be contacted as she nears chemo completion regarding CTsim appt, which will depend on timing of rib puller exchange. She has appt w/PT locally in near future for arm ROM. 25 mins of 40 min face to face visit w/Wendy spent discussing rationale for xrt; hoped for benefit of xrt; possible side effects/complications of xrt; prevention/management of side effects/complications of xrt; logistics of daily xrt; timing of xrt vis a vis chemo/rib puller exchange; CTsimulation w/eval for DIBH; arm position required for xrt; followup after completion of xrt. Radiation garcia:Post mastectomy Radiation boost:No Total dose of radiation: 50.4 Gy documented in this encounter Plan of Treatment Upcoming Encounters Date Type Department Care Team (Late st Contact Info) Description 01/22/2024 10:30 AM EST Appointment Mammography/[place] [phone] Ladi Mendosa MD [facility] HEMATOLOGY/[place] [address] 01/30/2024 11:30 AM EST Office Visit Dermatology at [facility] [address] [place] [address] Nilda Luis MD [facility] [address] [place] [address] 02/15/2024 9:30 AM [place] [phone] [place] [address] documented as of this encounter Visit Diagnoses Diagnosis Malignant neoplasm of left female breast, unspecified estrogen receptor status, unspecified site of breast documented in this encounter Care Teams Condominium Manager Relationship Specialty Start Date End Date Trinh Coates MD [facility] [address] [facility] [address] [place] [address] PCP - General 01/11/10 documented as of this encounter
--- OUTSIDE RECORDS SUMMARY | 2023-09-07 11:33 | XMS_ITS | Encounter Summary ---
Author Organization [facility] [place] [address] Care Team Providers Care Printer Slotter Feeder Name Role Phone Trinh Coates MD Primary Care Provider Reason for Referral * Diagnostic Test (Routine) - Closed Specialty Diagnoses / Procedures Referred By Diamante marin Referred To Contact Radiology Diagnoses Malignant neoplasm of upper-outer quadrant of left breast in female, estrogen receptor positive Procedures IR Mediport Placement / Exchange Sally Ren APRN [facility] [place] [address] [place] [address] Referral ID Status Reason Start Date Expiration Date V isits Requested Visits Authorized [id number] Closed Specialty Service Requested 06/01/2017 06/01/2018 1 1 Encounter Details Date Type Department Care Team (Late st Contact Info) Description 06/01/2017 Orders Only Hematology [place] [address] Sally Ren APRN [facility] [place] [address] Malignant neoplasm of upper-outer quadrant [...] 10:30 AM EST Appointment Mammography/[place] [address] Ladi Mendosa MD [facility] [place] [address] 01/30/2024 11:30 AM EST Office Visit Dermatology at [address] [phone] Nilda Luis MD [facility] [address] [place] [address] 02/15/2024 9:30 AM EST Appointment [place] [address] [place] [address] documented as of this encounter Results * IR Mediport Placement / Exchange (07/03/2017 1:49 PM EDT) Anatomical Region Laterality Modality X-Ray Angiograph y Narrative 07/11/2017 10:31 AM EDT INTERVENTIONAL RADIOLOGY PROCEDURE NOTE Procedure: 1) US guided right internal jugular vein access 2) Placement of right chest port (CT-compatible) Indication for Procedure: Left breast cancer, needs durable venous access for chemotherapy Consent: After discussing the risks (including infection, hemorrhage, damage to surrounding structures, respiratory depression) and benefits, the patient consented to the procedure. Method of Sedation: ??Due to the painful nature of the procedure, patient received split doses of intravenous fentanyl and versed from the IR nurse while pulse, pressure, and oxygen saturation were continuously monitored. 1% lidocaine was used for local analgesia. Technique: Prior to beginning the procedure, a standard time out Moment of Truth was performed to confirm all arteaga aspects (including the patient's identity, informed consent, medical record number, allergies, planned procedure and laterality if appropriate) all of which were correct. The patient received a dose of antibiotics for prophylaxis. Maximum sterile barrier precautions were used throughout. After preparation of the right neck and upper chest, ultrasound was used to localize the right internal jugular vein. ??1% lidocaine SQ was administered for local anesthesia, and a 21 ga needle was advanced under ultrasound guidance into the right internal jugular and a 0.018 wire was advanced into SVC. ??The remainder of the procedure was performed with fluoroscopic guidance. A 4 Fr introducer sheath was placed and the wire exchanged for a 0.035 3J wire. The wire was advanced into the IVC. Lidocaine and Bupivacaine was then infiltrated in a caudal-lateral direction, and infiltrated over a 2 cm infraclavicular area for pocket creation. ??A 1.5 cm incision was made, and with blunt dissection a pocket created. ??The port was attached to the catheter, placed into the pocket. ??A tunneler was then used to bring the catheter through the tunnel to the venotomy site. The 4 Fr introducer sheath was exchanged for a peel-away sheath over the wire. The wire and inner dilator were removed and the catheter advanced into the SVC. ??The sheath was removed. ??The port flushed and aspirated well. ??The pocket was closed using a two layer technique (2-0 vicryl deep interrupted and 4-0 vicryl running subcuticular). The skin closed with indermil. The port was not left accessed. Medications: Lidocaine 1% <10 mL SQ, Bupivacaine-Epinephrine 0.25 %-1:200,000 injection <20 mL;?? Versed 3 mg IV, Fentanyl 150 mcg IV Antibiotic Prophylaxis: Clindamycin 900mg IV EBL: <5 cc Complications: ??No immediate Findings: 1) US exam of the right IJV showed a widely patent compressible vessel. 2) New right chest port with the catheter tip at the cavoatrial junction. Impression: Placement of POWER port in right chest. Plan/Disposition: 1) To Angio recovery room, may discharge to home when meets criteria. 2) Port ready for use. Barrel Handler(s): Associate Provider: Scooby Muñoz APRN. I was present during the intraservice time as documented by the IR nurse. Attending: Dr. 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
--- OUTSIDE RECORDS SUMMARY | 2023-09-07 11:33 | XMS_ITS | Encounter Summary ---
Author Organization [facility] [place] [address] Care Team Providers Care Needle Punch Machine Operator Helper Name Role Phone Trinh Coates MD Primary Care Provider [phone] Reason for Visit * Diagnostic Test (Routine) - Closed Specialty Diagnoses / Procedures Referred By Diamante marin Referred To Contact Radiology Diagnoses Status post bilateral breast reconstruction Procedures IR Drain Check/Change/Remove Andre Crowley MD [facility] DI[facility]NOSTIC [place] [address] [place] [address] Referral ID Status Reason Start Date Expiration Date V isits Requested Visits Authorized [id number] Closed Specialty Service Requested 04/30/2017 04/30/2018 1 1 Encounter Details Date Type Department Care Team (Latest Contact Info) Description 05/25/2017 10:46 AM EDT Hospital [place] [address] Andre Crowley MD [facility] [place] [address] Discharge Disposition: Home Social History [...] Sig Dispensed Refills Start Date End Date ferrous gluconate 324 mg (37.5 mg iron) [...] mouth 4 times daily for 7 days. Take until 24 hours after last drain removed. 28 capsule 1 05/25/2017 06/01/2017 ondansetron (ZOFRAN) 4 mg Tablet Take 1 [...] as of this encounter Progress Notes * Shannan Galan RN - 05/23/2017 4:09 PM EDT [facility] NURSING DATABASE Name: WENDY SANDOVAL Date of : 1965 AGE 51 y.o. Address: [address] [place] [id number] (home) [phone] (work) Mobile: Telephone Information: Referring Provider: Andre Crowley REASON FOR VISIT: Order Questions Question Answer Comment Where will study be performed? [facility] Reason for exam and clinical history: s/p drain placement in IR 04/30/17 via tract of prior surgicaldrain. Exam/Procedure requested: drain check and possible removal Is the patient ? Unknown Is the patient on anticoagulant / anitplatelet therapy ? No Allergies Allergen Reactions ??? Pcn [Penicillins] ??? Zoloft [Sertraline] PSORIASIS FLARE Pertinent PMH: Patient Active Problem List Diagnosis Code ??? Hypertension I10 ??? Depression F32.9 ??? Obstructive sleep apnea (adult) (pediatric) G47.33 ??? OA (osteoarthritis) M19.90 ??? Overweight(278.02) E66.3 ??? Hyperparathyroidism E21.3 ??? Malignant neoplasm of upper-outer quadrant of left breast in female, estrogen receptor uciqqgzqS21.412, Z17.0 ??? Status post bilateral breast reconstruction Z98.890 ??? Surgery follow-up Z09 ??? Abdominal wound dehiscence T81.30XA Pertinent PSH: Past Surgical History: Procedure Laterality Date ??? BREAST BIOPSY Right 11/01 ??? SECTION x 2 ??? HAND SURGERY Right ??? PRG EMG, LARYNX N/A 11/02/2015 FACIAL NERVE MONITORING, SETUP LARYNGEAL performed by Valentina Lucas MD at [facility] OR ??? PRO BREAST RECONSTRUC W FREE FLAP Bilateral 04/26/2017 @BREAST RECONSTRUCTION W/ FREE FLAP, SUSAN (WRVU 42.58) [facility] ??? PRO BREAST RECONSTRUC W TISS EXPANDR Bilateral 04/26/2017 BREAST RECONSTRUCTION, IMMEDIATE OR DELAYED, W/ TISSUE METAL ENGINEERING PROCESS WORKER, INCLUDING SUBSEQUENT EXPANSION (WRVU 18.5) performed by Andre Gimenez MD at [facility] OR ??? PRO EXPLORE PARATHYROID GLANDS N/A 11/02/2015 PARATHYROIDECTOMY OR EXPLORATION OF PARATHYROID(S) performed by Valentina Lucas MD at [facility] OR ? ? PRO FULL THICK GRFT TRUNK <20 SQCM Bilateral 04/26/2017 FTSG, FREE, DIR CLOSE DONOR SITE, TRUNK, 20 SQ CM OR LESS (WRVU 9.15) performed by Andre Gimenez MD at [facility] OR ??? PRO MASTECTOMY, SIMPLE, COMPLETE Bilateral 04/26/2017 MASTECTOMY, SIMPLE, COMPLETE-SUSAN (WRVU 15.85) performed by Jolie Menendez MD at [facility] OR ??? PRO PARTIAL REMOVAL OF RIB Bilateral 04/26/2017 EXCISION OF RIB, PARTIAL (WRVU 7.26) performed by Andre Gimenez MD at [facility] OR ??? PRO REMOVE ARMPITS LYMPH NODES COMPLT Left 04/26/2017 LYMPHADENECTOMY, AXILLARY, COMPLETE (WRVU 13.87) performed by Jolie Menendez MD at [facility] OR ??? PRO THYMECTOMY, TRANSCERVICAL N/A 11/02/2015 THYMECTOMY, TRANSCERVICAL APPROACH performed by Valentina Lucas MD at [facility] OR ??? SHOULDER SURGERY Left ??? UMBILICAL HERNIA REPAIR Date/Procedure ?Med's given/comments 04/30/2017 Right breast drain exchange and repositioning, 10Fr. Versed 2mg IV, Fentanyl 100mcg IV. Tolerated well. 05/11/2017 Left axillary aspiration/ 45 ml ??Clear yellow Versed 3 mg IV, Fentanyl 150 mcg IV 05/14/2017??Left Axillary Drain placement?? Fentanyl 100 mcg IV; Pt tolerated procedure well.? Laboratory Results: Lab Results Component Value Date CREATININE 0.87 05/10/2017 Lab Results Component Value Date K 3.4 (L) 05/10/2017 Lab Results Component Value Date PLATELET 575 (H) 05/14/2017 Medications: Prior to Admission medications Medication Sig Start Date End Date Taking? Authorizing Provider clindamycin (CLEOCIN) 300 mg Capsule Take 1 capsule by mouth 3 times daily for 7 days. 05/15/17 05/22/17 Alma Castillo PA silver sulfADIAZINE (SILVADENE) 1 % Cream Apply topically 2 times daily. 05/15/17 Alma Castillo PA ondansetron (ZOFRAN) 4 mg Tablet Take 1 tablet by mouth every 8 hours as needed for Nausea. 05/15/17Alma Castillo PA Lactobacillus (BACID) 0.5 mg (100 [...] capsule by mouth daily. 07/26/15 PROVIDER, HISTORICAL norethindrone (AYGESTIN) 5 mg Tablet Take 1 tablet by mouth daily. 09/30/15 PROVIDER, HISTORICAL ferrous gluconate 324 mg (37.5 [...] 10/31/12 PROVIDER, HISTORICAL documented in this encounter Plan of Treatment Upcoming Encounters Date Type Department Care Team (Late st Contact Info) Description 01/22/2024 10:30 AM EST Appointment Mammography/[place] [phone] Ladi Mendosa MD [facility] HEMATOLOGY/[place] [address] 01/30/2024 11:30 AM EST Office Visit Dermatology at [place] [address] [place] [address] Nilda Luis MD [facility] DR [address] [place] [address] 02/15/2024 9:30 AM EST [place] [phone] [place] [address] documented as of this encounter Procedures Procedure Name Priority Date/Time Associated Diagnosis Comments IR DRAIN CHECK/CHANGE/REMOV E Routine 05/25/2017 1:21 PM EDT Status post bilateral breast reconstruction documented in this encounter Visit Diagnoses Not on filedocumented in this encounter Administered Medications Inactive Administered Medications - up to 3 most recent administrations Medication Order MAR Action Action Date Dose Rate Site iohexol (OMNIPAQUE) 350 mg/mL solution 50 mL 50 mL, Other, ONCE PRN, 1 dose, Starting on Sun05/25/17 at 1322, Until 05/25/17 at 1322, Per Protocol, Warning Vesicant/Irritant Medication , Angio/IR (Intra-Procedure), Routine Given 05/25/2017 1:22 PM EDT 7 mLs lidocaine (XYLOCAINE) 2 % jelly Topical (Top), EVERY 4 HOURS PRN, Pain, Starting on 05/25/17 at 1105, Until 05/26/17 at 0441, For use in Interventional Radiology (IR) only for procedure with direct provider supervision and verbal order., Angio/IR (Intra-Procedure) Given 05/25/2017 12:32 PM EDT 1 Bottle documented in this encounter Care Teams Needle Punch Machine Operator Helper Relationship Specialty Start Date End Date Trinh Coates MD [facility] [address] [place] [address] PCP - General 01/11/10 documented as of this encounter
--- OUTSIDE RECORDS SUMMARY | 2023-09-07 11:33 | XMS_ITS | Encounter Summary ---
Author Organization [facility] [place] [address] Care Team Providers Care Apparel Manufacture Instructor Name Role Phone Trinh Coates MD Primary Care Provider [phone] Reason for Referral * Diagnostic Test (Routine) - Closed Specialty Diagnoses / Procedures Referred By Diamante marin Referred To Contact Radiology Diagnoses Malignant neoplasm of left female breast, unspecified estrogen receptor status, unspecified site of breast Procedures IR Drain Check/Change/Remove Christy Keenan MD [facility] [place] [address] [place] [address] Referral ID Status Reason Start Date Expiration Date V isits Requested Visits Authorized [id number] Closed Specialty Service Requested 05/15/2017 05/15/2018 1 1 Encounter Details Date Type Department Care Team (Late st Contact Info) Description 05/15/2017 [place] [address] Christy Keenan MD [facility] [place] [address] Malignant neoplasm of left female [...] 01/22/2024 10:30 AM EST Appointment Mammography[place] [address] Ladi Mendosa MD [facility] DR HEMATOLOGY/[place] [address] 01/30/2024 11:30 AM EST Office Visit Dermatology at [address] [phone] Nilda Luis MD [facility] DR [address] [place] [address] 02/15/2024 9:30 AM [place] [address] [place] [address] documented as of this encounter Results * IR Drain Check/Change/Remove (05/25/2017 1:22 PM EDT) Anatomical Region Laterality Modality Head X-Ray Angiograph y Narrative 05/25/2017 2:06 PM EDT IR Procedure Note Procedure: ?Right breast drain check ?Left axillary drain check & removal History/indication: ?51 y.o. female with breast CA to the left. Pt underwent bilateral breast reconstruction after mastectomy with SALVADOR flaps (04/26/17); ??complicated by intraoperative demise followed by Tissue Chisel Grinder placement. Patient had a RIGHT breast insitu with large volume output. The drain became partially dislodged, IR placed a new drain on 04/30 via the existing tract. Patient presented to clinic on 05/11 with fevers, malaise, fatigue and was found to have a LEFT??axillary fluid collection. IR aspirated 45 cc of clear serous fluid on 05/11 with trace amount of fluid remaining. Patient had increased axilla swelling and fluid collection on repeat US on 05/14, IR subsequently placed a drain in the collection. Patient is now presenting for two drain checks: right breast drain and left axillary drain. Technique: The patient was positioned supine. The existing tube and surrounding skin was prepped and draped in a sterile fashion. The initial digital image demonstrates a right breast drain and left axillary drain in the expected locations. There continues to be drainage from the right breast drain >30 cc per day. Contrast injection fills a space surrounding the tissue hostess host. The drain was flushed and re-connected to suction bulb. On the left. Injection of the drain resulted in no significant cavity and contrast tracking retrograde along the catheter. US evaluation confirmed no axillary fluid collection. It was therefore decided to remove the drain. Position of the locking loop within the renal pelvis was confirmed with an injection of contrast. Contrast flowed into the ---- ureter, but did not flow beyond the L-5 level. Peristalsis in the proximal half of the ureter is normal. Over a stiff glide wire, the locking loop was released and the tube removed. The site was observed for signs of bleeding; there was none. The wire was then removed and a sterile dressing applied. The patient tolerated the procedure well. Complications: ?None immediate; ??EBL=0 Medications: ??2% lidocaine jelly Contrast: ?? 7 cc non-ionic/omnipaque Fluoroscopy time: 1 minute Findings: 1. ??Right drain check: continued drainage reported to be from the right breast drain >30 cc per day. Contrast injection fills a space surrounding the tissue hostess host. The drain was flushed and re-connected to suction bulb. 2. ??Left axillary drain check: no significant cavity observed on either drain injection or US evaluation. 3. ??Over the wire removal of the left axillary drain as above. Attending: ?Rashaad Paulson MD ? I was present during the intraservice time as documented by the IR Nurse. Flip Paulson MD IMG IR ORDERABLES documented in this encounter Visit Diagnoses Diagnosis Malignant neoplasm of left female breast, unspecified estrogen receptor status, unspecified site of breast Malignant neoplasm of left female breast, unspecified estrogen receptor status, unspecified site of breast documented in this encounter Care Teams Apparel Manufacture Instructor Relationship Specialty Start Date End Date Trinh Coates MD [address] [facility] [address] [place] [address] PCP - General 01/11/10 documented as of this encounter
--- OUTSIDE RECORDS SUMMARY | 2023-09-07 11:33 | XMS_ITS | Encounter Summary ---
Author Organization [facility] [place] [address] Care Team Providers Care Wash Worker Name Role Phone Trinh Coates MD Primary Care Provider [phone] Reason for Visit * Reason Comments Follow Up Surgery s/p salvador with tissue hog pusher, wound vac Encounter Details Date Type Department Care Team (Late st Contact Info) Description 05/30/2017 10:00 AM EDT Office Visit [place] [address] Jolene Azevedo APRN [facility] [place] [address] Surgery follow-up Social History Tobacco Use Types [...] * Patient Instructions* Jolene Azevedo APRN - 05/30/2017 10:00 AM EDT 1. Follow up 06/[address] Gimenez, anticipate being healed enough to begin treatment at that time. 2. Apply Silvadene to nipples and umbilicus twice daily. Wash off completely between applications. 3. Leave antimicrobial dressing in place over your drain until it is removed. 4. Do not shower until 24 hours after your last drain has been removed. 5. Limit activities: do not lift > 5 pounds, no pushing, no pulling, no bouncing or running, no chest engaging activities such as push-ups or plank. 6. Continue antibiotics until 24 hours after your last drain is removed. 7. Continue with VNA for abdominal dressing changes Sunday, Sunday, Sunday: wound VAC or Aquacell AG. documented in this encounter Progress Notes * Jolene Azevedo APRN - 05/30/2017 10:00 AM EDT Images from the original note were not included. Plastic Surgery Post Op Note Reason for visit: F/U status post procedure Chemotherapy: Yes Radiation: Yes Anticipated exchange: Date of surgery: 04/26/17 Procedure(s): Bilateral mastectomies with attempted SALVADOR flaps, SALVADOR flaps debrided and TE expanderbreast reconstruction (Elton Artura 600 cc expanders placed bilaterally and filled with 450 cc of methylene blue impregnated saline.) HPI: Pt reports that she is doing ok. Overall she is feeling a little better than previously. She has two drains placed with serious output. She reports that the drain on the left is still producing 50-60 ml per day. Her drain on the right side is draining very minimal. She denies having any drainage from her nipples. She has been using a wound vac.She report that she will be having Chemotherapy and Radiation. Her treatment is pending wound healing. Her Oncologist is Dr. Mota. Radiation Oncologist is Dr. Mendoza. Examination: Patient is alert, conversant, comfortable, ambulating Flaps well perfused. NAC grafts adherent. Eschar centrally. Expanders in good position, maintaining fill volume. Abdominal wound: 3.8 x 0.8 x 0.7 cm at the deepest. No undermining or tunneling Drains in place with serous output. Procedure: Under sterile conditions, bilateral breast tissue expanders were injected with 50 ml of sterile saline for a total volume of 500 ml. Impression: Wendy Sandoval is a 51 y.o. female who was seen today for follow- up after the above procedure. Please see the operative note for details. SALVADOR flaps failed intraop. Expanders place. Recovery complicated by delayed healing of breasts and abdomen. Drains remain in place in bilateral breasts. Right side drain with minimal output, will be evaluated by IR. Left side drain output remainsabove criteria for removal. Patient expanded today in hopes that will decrease drainage. Expansion well tolerated. Plan: 1. Follow up 06/[address] Gimenez, anticipate being healed enough to begin treatment at that time. 2. Apply Silvadene to nipples and umbilicus twice daily. Wash off completely between applications. 3. Leave antimicrobial dressing in place over your drain until it is removed. 4. Do not shower until 24 hours after your last drain has been removed. 5. Limit activities: do not lift > 5 pounds, no pushing, no pulling, no bouncing or running, no chest engaging activities such as push-ups or plank. 6. Continue antibiotics until 24 hours after your last drain is removed. 7. Continue with VNA for abdominal dressing changes Sunday, Sunday, Sunday: wound VAC or Aquacell AG. I, Ailyn Miranda, am acting as scribe for Jolene Azevedo APRN. All work documented was performed byJolene Azevedo APRN ???I performed the above scribed service and agree with the accuracy of the note?? JOLENE AZEVEDO APRN documented in this encounter Plan of Treatment Upcoming Encounters Date Type Department Care Team (Late st Contact Info) Description 01/22/2024 10:30 AM EST Appointment Mammography/[place] [address] Ladi Mendosa MD [facility] HEMATOLOGY/[place] [address] 01/30/2024 11:30 AM EST Office Visit Dermatology at [facility] [address] [place] [phone] Nilda Luis MD [facility] [address] [place] [address] 02/15/2024 9:30 AM EST Appointment [place] [address] [place] [address] documented as of this encounter Visit Diagnoses Diagnosis Surgery follow-up Follow-up examination, following unspecified surgery documented in this encounter Care Teams Wash Worker Relationship Specialty Start Date End Date Trinh Coates MD [address] [place] [address] PCP - General 01/11/10 documented as of this encounter
--- OUTSIDE RECORDS SUMMARY | 2023-09-07 11:33 | XMS_ITS | Encounter Summary ---
Author Organization [facility] Address [facility] [place] [address] Care Team Providers Care E Commerce Analyst Name Role Phone Trinh Coates MD Primary Care Provider [phone] Encounter Details Date Type Department Care Team (Latest Contact Info) Description 05/04/2017 12:23 PM EDT - 05/04/2017 11:59 PM EDT Hospital Encounter XRay at [address] [place] [address] Andre Gimenez MD [facility] [address] S/P breast reconstruction Discharge Disposition: Home Social [...] Tablet Take 1 tablet by mouth every 4 hours as needed for Pain (ONLY for pain that is not controlled on tylenol and NSAIDs). 10 tablet 05/04/2017 05/10/2017 cephalexin (KEFLEX) 500 mg Capsule Take 1 capsule by mouth 4 times daily for 7 days. 40 capsule 05/04/2017 05/15/2017 silver sulfADIAZINE (SILVADENE) 1 % Cream Apply topically 2 times daily for 20 days. To umbilicus, thick layer, twice a day. Completely wipe off before reapplying. 50 g 05/04/2017 05/21/2017 Lactobacillus (BACID) 0.5 mg (100 million cell) Tablet Take 1 tablet by mouth daily. 30 tablet 05/01/2017 12/12/2017 ondansetron (ZOFRAN) 4 mg Tablet Take 1 tablet by mouth every 8 hours as needed for Nausea. 6 tablet 05/01/2017 05/21/2017 valsartan-hydrochlorot hiazide (DIOVAN-HCT) 160-12.5 mg Tablet Take 1 tablet by mouth daily. 02/20/2017 10/10/2017 levothyroxine (SYNTHROID) 112 mcg Tablet Take 1 tablet by mouth daily. 0 01/25/2017 06/20/2017 acetaminophen (TYLENOL) 325 mg Tablet Take 2 tablets by mouth every 4 hours as needed for Pain. 11/03/2015 07/25/2022 norethindrone (AYGESTIN) 5 mg Tablet Take 1 tablet by mouth daily. 09/30/2015 05/25/2017 KLOR-CON M20 20 mEq extended release tablet 2 times daily. 10/31/2012 08/03/2017 documented as of this encounter Plan of Treatment Upcoming Encounters Date Type Department Care Team (Late st Contact Info) Description 01/22/2024 10:30 AM EST Appointment Mammography/[place] [address] Ladi Mendosa MD [facility] [place]AT[place] [address] 01/30/2024 11:30 AM EST Office Visit Dermatology at [address] [place] [phone] Nilda Luis MD [facility] [address] [place] [address] 02/15/2024 9:30 AM EST Appointment [place] [address] [place] [address] documented as of this encounter Procedures Procedure Name Priority Date/Time Associated Diagnosis Comments XR CHEST PA AND LATERAL Routine 05/04/2017 12:55 PM EDT S/P breast reconstruction documented in this encounter Results * XR Chest PA & Lateral (Generic) (05/04/2017 12:55 PM EDT) Anatomical Region Laterality Modality Chest N/A Digital Radiogra phy Impressions 05/04/2017 1:14 PM EDT No acute cardiopulmonary pathology identified. Narrative 05/04/2017 1:14 PM EDT EXAMINATION: XR CHEST PA AND LATERAL (GENERIC) CLINICAL HISTORY: shortness of breathe TECHNIQUE: PA and lateral views of the chest. ? COMPARISON: 04/27/2017. FINDINGS: Tissue expanders and left chest wall drain, as before. Right-sided drain appears replaced with a pigtail catheter. The lungs appear clear. No pneumothorax is seen. The cardiomediastinal silhouette, kavita, pulmonary vessels are unchanged. No significant osseous findings are seen. Procedure Note Lizbeth Mcmillan MD - 05/04/2017 EXAMINATION: XR CHEST PA AND LATERAL (GENERIC) CLINICAL HISTORY: shortness of breathe TECHNIQUE: PA and lateral views of the chest. COMPARISON: 04/27/2017. FINDINGS: Tissue expanders and left chest wall drain, as before.Right-sided drain appears replaced with a pigtail catheter. The lungs appear clear.No pneumothorax is seen. The cardiomediastinal silhouette, kavita, pulmonaryvessels are unchanged. No significant osseous findings are seen. IMPRESSION No acute cardiopulmonary pathology identified. Andre Gimenez MD IMG DX ORDERABLES documented in this encounter Visit Diagnoses Diagnosis S/P breast reconstruction Breast replaced by other means documented in this encounter Care Teams E Commerce Analyst Relationship Specialty Start Date End Date Trinh Coates MD [address] [place] [address] PCP - General 01/11/10 documented as of this encounter
--- OUTSIDE RECORDS SUMMARY | 2023-09-07 11:33 | XMS_ITS | Encounter Summary ---
Author Organization [facility] [place] [address] Care Team Providers Care Top Collar Baster Name Role Phone Trinh Coates MD Primary Care Provider [phone] Reason for Referral * Diagnostic Test (Routine) - Closed Specialty Diagnoses / Procedures Referred By Shadyac t Referred To Contact Cardiology Diagnoses Malignant neoplasm of upper-outer quadrant of left breast in female, estrogen receptor positive Hyperparathyroidism Essential hypertension Depression, unspecified depression type Obstructive sleep apnea (adult) (pediatric) Procedures Echocardiogram Transthoracic(Leb) Gustavo Mota MD [facility] DR HEMATOLOGY/[place] [address] [facility] [place] [address] Referral ID Status Reason Start Date Expiration Date V isits Requested Visits Authorized [id number] Closed Specialty Service Requested 05/22/2017 05/22/2018 1 1 Reason for Visit * Diagnostic Test (Routine) - Closed Specialty Diagnoses / Procedures Referred By Contac t Referred To Contact Cardiology Diagnoses Malignant neoplasm of upper-outer quadrant of left breast in female, estrogen receptor positive Hyperparathyroidism Essential hypertension Depression, unspecified depression type Obstructive sleep apnea (adult) (pediatric) Procedures Echocardiogram Transthoracic(Leb) Gustavo Mota MD [facility] DR HEMATOLOGY/[place] [address] [facility] [place] [address] Referral ID Status Reason Start Date Expiration Date V isits Requested Visits Authorized [id number] Closed Specialty Service Requested 05/22/2017 05/22/2018 1 1 Encounter Details Date Type Department Care Team (Latest Contact Info) Description 06/01/2017 1:31 PM EDT - 06/01/2017 11:59 PM EDT Hospital Encounter [place] [address] Gustavo Mota MD [facility] HEMATOLOGY/ONCRALPH [place] DEPT. [place], [place] [id number] Malignant neoplasm of upper-outer quadrant of left breast in female, estrogen receptor positive; Hyperparathyroidism ; Essential hypertension; Depression, unspecified depression type; Obstructive sleep apnea (adult) (pediatric) Discharge Disposition: Home Social History Tobacco Use [...] 01/22/2024 10:30 AM EST Appointment Mammography/[place] [phone] Ladi Mendosa MD [facility] DR HEMATOLOGY/[place] [address] 01/30/2024 11:30 AM EST Office Visit Dermatology at [facility] [address] [place] [address] Nilda Luis MD [facility] DR LIDIA [place] [address] 02/15/2024 9:30 AM EST [place] [phone] [place] [address] documented as of this encounter Procedures Procedure Name Priority Date/Time Associated Diagnosis Comments ECHO LMTD W/O CONTRAST W LMTD SPEC DOPP COLOR DOPP Routine 06/01/2017 2:59 PM EDT Malignant neoplasm of upper-outer quadrant of left breast in female, estrogen receptor positive Hyperparathyroidism Essential hypertension Depression, unspecified depression type Obstructive sleep apnea (adult) (pediatric) documented in this encounter Results * ECHO LMTD W/O CONTRAST W LMTD SPEC DOPP COLOR DOPP (06/01/2017 2:59 PM EDT) EF 70 HEARTLAB SYSTEM Anatomical Region Laterality Modality Other 06/01/2017 Narrative 06/01/2017 3:02 PM EDT Procedure: ?Transthoracic Echocardiogram Patient: ?CORINA WENDY M ? (Age): 1965(51y) Med Rec#: ? [id number] ?Sex: ?F ? [place] [facility] [place] / Wt: ??152(cm)/79.2(kg Pt. Loc: ?Echo Lab ?BSA: ?1.76 Study Date: ?? 06/01/2017 ?Pt. Type: Outpatient Tape: ? Referring: KENZIE Reading: Javier Donohue ([id number]) Wire Walker: Tammy Gonzalez Diagnosis: *ICD-10-PCS Malignant neoplasm of [...] ? Mid-Inferior ?Normal ? Mid-Inferoseptal ?Normal ? Cameron-Septal ? Normal ? Cameron-Anterior ? Normal ? Cameron-Lateral ?Normal ? Cameron-Inferior ? Normal ? Cameron-Tip ?Normal ? This report has been electronically signed by: Javier Donohue M.D. ? 06/01/2017 15:02:16 Images reviewed and interpretation verified [facility] Procedure Note Javier Donohue MD - 06/01/2017 Procedure: Transthoracic Echocardiogram Patient: CORINA Lanier (Age): 1965(51y) Med Rec#: [id number] Sex: F [place] [facility] [place]t / Wt: 152(cm)/79.2(kg Pt. Loc: Echo Lab BSA: 1.76 Study Date: 06/01/2017 Pt. Type: Outpatient Tape: Referring: CHRISTINEANGELA Reading: Javier Donohue ([id number]) Wire Walker: Tammy Gonzalez Diagnosis: *ICD-10-PCS Malignant neoplasm of [...] Normal Mid-Posterolateral Normal Mid-Inferior Normal Mid-Inferoseptal Normal Cameron-Septal Normal Cameron-Anterior Normal Cameron-Lateral Normal Cameron-Inferior Normal Cameron-Tip Normal This report has been electronically signed by: Javier Donohue M.D. 06/01/2017 15:02:16 Images reviewed and interpretation verified [facility] Gustavo Mota MD ECHO ORDERABLES documented in this encounter Visit Diagnoses Diagnosis Malignant neoplasm of upper-outer quadrant of left breast in female, estrogen receptor positive Hyperparathyroidism Hyperparathyroidism, unspecified Essential hypertension Unspecified essential hypertension Depression, unspecified depression type Obstructive sleep apnea (adult) (pediatric) documented in this encounter Care Teams Top Collar Baster Relationship Specialty Start Date End Date Trinh Coates MD [facility] [address] [place] [address] PCP - General 01/11/10 documented as of this encounter
--- OUTSIDE RECORDS SUMMARY | 2023-09-07 11:33 | XMS_ITS | Encounter Summary ---
[place] [address] Care Team Providers Care Quality Assurance Lead Name Role Phone Trinh Coates MD Primary Care Provider [phone] Reason for Referral * Diagnostic Test (Routine) - Closed Specialty Diagnoses / Procedures Referred By Contac t Referred To Contact Radiology Diagnoses Status post bilateral breast reconstruction Procedures IR Drain Check/Change/Remove Mali Crowley MD [facility] [place] [address] [place] [address] Referral ID Status Reason Start Date Expiration Date V isits Requested Visits Authorized [id number] Closed Specialty Service Requested 04/30/2017 04/30/2018 1 1 Reason for Visit * Auth/Cert Specialty Diagnoses / Procedures Referred By Contac t Referred To Contact Diagnoses Abdominal wound dehiscence, initial encounter INFECTION Procedures ELA IPI Referral ID Status Reason Start Date Expiration Date Visits Re quested Visits Authorized [id number] 1 1 Encounter Details Date Type Department Care Team (Latest Contact Info) Description 05/10/2017 3:03 PM EDT - 05/15/2017 4:24 PM EDT Hospital Encounter [address] [place] [address] Mali Lakhani MD [facility] [place] [address] Status post bilateral breast reconstruction Discharge Disposition: Home Social History [...] Sign Reading Time Taken Comments Blood Pressure 140/90 05/15/2017 11:36 AM EDT Pulse 72 05/15/2017 7:41 AM EDT Temperature 37.2 ??C (99 ??F) 05/15/2017 11:36 AM EDT Respiratory Rate 16 05/15/2017 11:36 AM EDT Oxygen Saturation 97% 05/15/2017 11:36 AM EDT Inhaled Oxygen Concentration - - Weight 72.6 kg (160 lb) 05/10/2017 9:05 PM EDT p er pt Height 152.4 cm (5') 05/10/2017 9:05 PM EDT Body Mass Index 31.25 05/10/2017 9:05 PM EDT documented in this encounter Discharge Summaries * Alma Castillo PA - 05/15/2017 12:46 PM EDT Images from the original note were not included. PLASTIC SURGERY DISCHARGE SUMMARY Patient Name: Wendy Sandoval Patient Age, : 51 y.o. 1965 Language, race, ethnicity: Maori, White, Not nor Date of Admission: 05/10/2017 Date of Discharge: 05/15/17 Attending Physician: Mali Lakhani MD Discharge Physician: Mali Lakhani MD Discharge Diagnoses (Hospital Problems) and Secondary Diagnoses (Chronic Problems): Active Hospital Problems Diagnosis ??? Abdominal wound dehiscence Resolved Hospital Problems Diagnosis Date Resolved No resolved problems to display. Active Non-Hospital Problems Diagnosis ??? Surgery follow-up ??? Status post bilateral breast reconstruction ??? Malignant neoplasm of upper-outer quadrant of left breast in female, estrogen receptor positive ??? Hyperparathyroidism ??? Obstructive sleep apnea (adult) (pediatric) ??? OA (osteoarthritis) ??? Overweight(278.02) ??? Hypertension ??? Depression Operations/Major Procedures: History of Presentation: 51yo F pt with history of JACQUELYN on CPAP, left breast CA ER/ID+, HEr2-, HTN, HLD s/p bilateral mastectomy with left axillary SLN excision by Dr Menendez and attempted reconstruction with bilateral SIEA flaps, then bilateral TE placement with FNG by Dr. Lakhani 04/26/2017. Pt reports to clinic today (05/10) for drain removal with symptoms of fevers (up to 100F), malaise, fatigue, decrease in appetite, abdominal pain, lower back pain. Pt reports that she has been on Keflex since last Sunday and has not felt better. Approximately two days ago she developed hardening of her abdomen and pain that she also feels in her lower back. Today in clinic, she complained of SOB for which CT of chest was ordered and is negative to PE. But incidentally it was found that she has afluid collection in her left axilla. Labs reveal a high white blood count. Pt denies chills, nausea, vomiting, dysuria, erythema, edema, drainage. Pt was admitted on 05/10 for IV antibiotic therapy, IR drainage. History obtained through patient interview, review of relevant records, and/or discussion with referring provider. Hospital Course: Patient was admitted from [facility] clinic on 05/10 for IV antibiotic therapy and IR drainage of left axillary fluid collection. HD1: started on IV clindamycin HD2: axillary fluid collection drained by IR, packing changes to abdominal wound HD3: packing changes BID to abdominal wound HD4: wound vac applied to abdomen, IR placed a drain to left axilla for reaccumulation of fluid Today, HD5, she has met all criteria for discharge home: her pain is well controlled with medications by mouth, she is tolerating a regular diet, is voiding spontaneously without difficulties, and isup and ambulating without complications. Pt has been deemed safe for discharge to home with VNA. Past Medical History Past Medical History: Diagnosis Date ??? Fibrocystic breast determined by biopsy ??? Hyperlipidemia ??? Hypertension ??? Impaired fasting glucose ??? Malignant neoplasm of upper-outer quadrant of left breast in female, estrogen receptor positive03/31/2017 ??? Obstructive sleep apnea on CPAP ??? Proteinuria Past Surgical History Past Surgical History: Procedure Laterality Date ??? BREAST BIOPSY Right 11/01 ??? SECTION x 2 ??? HAND SURGERY Right ??? PRG EMG, LARYNX N/A 11/02/2015 FACIAL NERVE MONITORING, SETUP LARYNGEAL performed by Valentina Lucas MD at [facility] OR ??? PRO BREAST RECONSTRUC W FREE FLAP Bilateral 04/26/2017 @BREAST RECONSTRUCTION W/ FREE FLAP, SUSAN (WRVU 42.58) [facility] ??? PRO BREAST RECONSTRUC W TISS EXPANDR Bilateral 04/26/2017 BREAST RECONSTRUCTION, IMMEDIATE OR DELAYED, W/ TISSUE BEAUTY OPERATOR APPRENTICE, INCLUDING SUBSEQUENT EXPANSION (WRVU 18.5) performed by Mali Lakhani MD at [facility] OR ??? PRO EXPLORE PARATHYROID GLANDS N/A 11/02/2015 PARATHYROIDECTOMY OR EXPLORATION OF PARATHYROID(S) performed by Valentina Lucas MD at [facility] OR ? ? PRO FULL THICK GRFT TRUNK <20 SQCM Bilateral 04/26/2017 FTSG, FREE, DIR CLOSE DONOR SITE, TRUNK, 20 SQ CM OR LESS (WRVU 9.15) performed by Mali Lakhani MD at [facility] OR ??? PRO MASTECTOMY, SIMPLE, COMPLETE Bilateral 04/26/2017 MASTECTOMY, SIMPLE, COMPLETE-SUSAN (WRVU 15.85) performed by Jolie Menendez MD at [facility] OR ??? PRO PARTIAL REMOVAL OF RIB Bilateral 04/26/2017 EXCISION OF RIB, PARTIAL (WRVU 7.26) performed by Mali Lakhani MD at [facility] OR ??? PRO REMOVE ARMPITS LYMPH NODES COMPLT Left 04/26/2017 LYMPHADENECTOMY, AXILLARY, COMPLETE (WRVU 13.87) performed by Jolie Menendez MD at [facility] MAIN OR ??? PRO THYMECTOMY, TRANSCERVICAL N/A 11/02/2015 THYMECTOMY, TRANSCERVICAL APPROACH performed by Valentina Lucas MD at [facility] OR ??? SHOULDER SURGERY Left ??? UMBILICAL HERNIA REPAIR Procedures: * No surgery found * * Surgery not found *: Vital Signs at Discharge: Wt Readings from Last 1 Encounters: 05/10/17 72.6 kg (160 lb) Ht Readings from Last 1 Encounters: 05/10/17 152.4 cm (5') Body mass index is 31.25 kg/(m^2). Last value Range last 24 hrs Temperature Temp: 37.2 ??C (99 ??F) Temp: [37 ??C (98.6 ??F)-37.2 ??C (99 ??F)] Heart Rate Heart Rate: 72 Heart Rate: [72-85] Blood Pressure BP: 140/90 BP: (140-154)/(84-93) Respiratory Rate Resp: 16 Resp: [16-18] SpO2 SpO2: 97 % SpO2: [86 %-98 %] Physical Exam on d/c: Intake/Output Summary (Last 24 hours) at 05/15/17 1246 Last data filed at 05/15/17 1111 Gross per 24 hour Intake 1560 ml Output 595 ml Net 965 ml General: Appears in no acute distress, pleasant, cooperative, resting comfortably in bed HEENT: atraumatic, normocephalic, trachea midline, no noted facial asymmetries/echymosis/edema Respiratory: Breathing is non-labored, breath sounds are equal and present bilaterally, no wheezing, on room air Cardiovascular: No peripheral edema, RRR Breast: postoperative bra intact, incisions c/d/i, healing well, no surrounding erythema/edema, nipples necrotic with silvadene on Abdomen: non distended, non tender, wound vac to midline abdomen on with good suction 125mmHg Umbilicus: necrotic, silvadene on Extremities: no clubbing, no cyanosis, capillary refill <2sec, warm/dry and pink, motor and sensation intact on gross exam Mental Status: alert and oriented, normal mood/behavior, speech, motor activity, thought process Functional and Cognitive Status: Ambulating and cognitively intact. Important Studies and Lab Data: Labs: Last wbc, hgb, hct plt Recent Labs 05/14/17 0332 WBC 12.3* HGB 10.6* HCT 32.4* Result Information ? Date and Time Status ? 05/12/2017 ??7:21 AM Preliminary result ? Component Results ? Component Value ? Body Fluid Culture No growth to date. ? Gram Stain Cytocentrifuge Gram Stain performed No WBC's seen. No microorganisms seen. Date and Time Status ? 05/14/2017 ??4:53 PM Preliminary result ? Component Results ? Component Value ? Reviewed Stain No WBC's seen. No microorganisms seen. ? Gram Stain Cytocentrifuge Gram Stain performed No WBC's seen. No microorganisms seen. Imaging Studies: 05/14/17: Indication : recurrent left axillary fluid collection after breast reconstruction with tissue expanders. ?? Technique: After discussing risks (including infection and hemorrhage), and benefits, patient consented to the procedure. Due to the painful nature of the procedure, split doses of fentanyl were administered by the IR nurse during continuous monitoring of pulse, blood pressure and oxygen saturation. ?? Collection was localized with US. After sterile preparation of the overlying skin, 6cc 1% lidocaineSQ was administered for anesthesia, and an 18 ga needle was advanced under US guidance into the collection. Over an .035 guidewire, tract was dilated to 8 Fr, and an 8.5 Fr locking pigtail drain wasplaced. Catheter was secured to the skin and left to bulb suction drainage. Patient tolerated the procedure well. There were no immediate complications. ?? Fluoro time: 0 min. Contrast: 0 cc Omni 350. EBL : 0 cc ?? Findings: 5 cm left axillary fluid collection, clear yellowish fluid aspirated. Specimen submitted for culture. ?? Impression: Technically successful left axillary drain placement . ?? Recommend: to bulb suction drainage Flush with 5-10 cc NS every 8-12 h. Record outputs. 05/14/17 Mammo: FINDINGS: There are 3 flattened peripheral fluid collections around the tissue newspaper manager. There are as follows: ?? Left 3:00 2.5 x 1.1 x 1.3 cm. This is associated with the drain. ?? Left upper inner quadrant: 10:00 radian: 2.7 x 3.8 x 1.4 cm ?? Left upper outer quadrant 2:00 radian: flattened collection 5.2 x 1 x 1.9 cm ?? There is a postoperative seroma in the left axilla measuring 5.5 x 2.7 x 4.5 cm. ?? IMPRESSION Fluid collections as described. The periimplant collections are not significant. ?? Clinical follow-up advised. ?? BI-RADS Category 2: Benign Findings 05/11/17 IR: Technique: The patient was positioned right lateral decubitus. A pre-procedure ultrasound showed a fluid collection in the posterior left axillary region. Prior to beginning the procedure, a standard time out Moment of Truth was performed to confirm all arteaga aspects (including the patient's identity, informed consent, medical record number, allergies, planned procedure and laterality if appropriate) all ofwhich were correct. The posterior left axilla was prepped and draped in a sterile fashion. 1% lidocaine SQ was administered for local anesthesia. With ultrasound guidance, an 21 ga needle directed into the left fluid collection. There was free return of clear serous fluid. A 0.018 wire was advancedand a 4 Fr micropuncture dilator placed. A total of 45 cc of clear serous fluid was aspirated. Ultrasound confirmed trace amount of residual fluid after aspiration. The dilator was removed. ?? Medications: Lidocaine 1% <10 mL SQ, Fentanyl 150 mcg IV, Versed 3 mg IV EBL: <5 cc Complications: No immediate Specimens: Left axillary fluid sent for the requested labs ?? Impression/Findings: 1. Left axillary fluid collection by US evaluation. 2. Total of 45 cc of clear serous fluid aspirated from the fluid collection with trace amount of fluid remaining. Pending Studies and Lab Data: The patient will need the following test completed on: 05/10/2017 1. IR Drain Check/Change/Remove Diagnosis: Status post bilateral breast reconstruction (Z98.890) Authorizing Provider: Mali Crowley MD Medications: Your Medications New Medications Dose Details clindamycin 300 mg Cap Commonly known as: CLEOCIN Take 1 capsule by mouth 3 times daily for 7 days. 300 mg Quantity: 21 capsule Refills: 0 Continued medications with new dosing Dose Details * ondansetron 4 mg Tab Commonly known as: ZOFRAN Take 1 tablet by mouth every 8 hours as needed for Nausea. What changed: Another medication with the same name was added. Make sure you understand how and when to take each. 4 mg Quantity: 6 tablet Refills: 0 * ondansetron 4 mg Tab Commonly known as: ZOFRAN Take 1 tablet by mouth every 8 hours as needed for Nausea. What changed: You were already taking a medication with the same name, and this prescription was added. Make sure you understand how and when to take each. 4 mg Quantity: 20 tablet Refills: 0 * silver sulfADIAZINE 1 % Crea Commonly known as: SILVADENE Apply topically 2 times daily for 20 days. To umbilicus, thick layer, twice a day. Completely wipe off before reapplying. What changed: Another medication with the same name was added. Make sure you understand how and when to take each. Quantity: 50 g Refills: 0 * silver sulfADIAZINE 1 % Crea Commonly known as: SILVADENE Apply topically 2 times daily. What changed: You were already taking a medication with the same name, and this prescription was added. Make sure you understand how and when to take each. Quantity: 50 g Refills: 0 * Notice: This list has 4 medication(s) that are the same as other medications prescribed for you. Read the directions carefully, and ask your doctor or other care provider to review them with you. Continued medications, unchanged Dose Details acetaminophen 325 [...] as needed. Quantity: 60 g Refills: 3 DILTiazem 240 mg Cp24 Commonly known as: CARDIZEM CD Take 1 capsule by mouth daily. 1 capsule Refills: 0 ferrous gluconate 324 mg (37.5 mg iron) Tab Take 324 mg by mouth daily. 324 mg Refills: 0 FLUoxetine 40 mg Cap Commonly known as: PROzac daily. Refills: 0 KLOR-CON M20 20 mEq Tbtq 2 times daily. Generic drug: potassium chloride Refills: 0 Lactobacillus 0.5 mg (100 million cell) Tab Commonly known as: BACID Take 1 tablet by mouth daily. 1 tablet Quantity: 30 tablet Refills: 0 levothyroxine 112 mcg Tab Commonly known as: SYNTHROID Take 1 tablet by mouth daily. 1 tablet Refills: 0 norethindrone 5 mg Tab Commonly known as: AYGESTIN Take 1 tablet by mouth daily. 1 tablet Refills: 0 triamcinolone 0.5 % Crea Commonly known as: ARISTOCORT Apply topically 3 times daily. Refills: 0 valsartan-hydrochlorothiazide 160-12.5 mg Tab Commonly known as: DIOVAN-HCT Take 1 tablet by mouth daily. 1 tablet Refills: 0 STOPPED Medications cephalexin 500 mg Cap Commonly known as: KEFLEX oxyCODONE 5 mg Tab Commonly known as: ROXICODONE Allergies: Allergies Allergen Reactions ??? Pcn [Penicillins] ??? Zoloft [Sertraline] PSORIASIS FLARE Immunizations Given this Hospitalization: There is no immunization history on file for this patient. Smoking Status at Discharge: History Smoking Status ??? Former Smoker Smokeless Tobacco ??? Never Used Discharge to: Home Discharge Instructions: Patient Instructions DISCHARGE INSTRUCTIONS WOUND CARE: Keep wound vac to abdomen clean dry and intact. VAC therapy changes are to begin on Sunday05/16/2017 1. Cleanse or Irrigate wound with approved commercial wound cleanser or saline dressing at each VACchange. 2. Apply black foam to wound as ordered. (Please make sure that black foam is only applied inside the wound and not on healthy appearing skin. Placing sponge on healthy skin will cause ulcerations ofhealthy skin). 3. Change dressing every M-W- and as needed. *If VAC must be placed on hold for any reason, you may substitute dressing with saline dressing (wet to dry) to be changed 1-2 times a day. *When appropriate, the VNA may instruct client or a support system to care for VAC dressings. VAC pressure settings are to be preset by [facility] at 125mm/HG on continuous with low intensity. *VAC treated wounds may have a unique ordor due to the interaction of the foam and wound fluids which contain bacteria and protein. * Skin prep may be used to protect the periwound skin. * Call [facility] with VAC problems or questions . DRAIN CARE: -The drains are made to collect fluid to reduce the risk of an infection and or the formation of a seroma or hematoma. The amount of fluid should decrease daily and turn light pink or light yellow. The drains will be removed by the provider when the output is < 30cc/day for two days in a row. Please keep a log of the output from each drain as you empty the drains and bring the log to your follow up visit with your provider. -At the end of each day milk the tubing and pour out the contents. This is done by sliding 2 fingers along the tubing toward the bulb. Hold the tubing in place with your thumb and index finger from your left hand and pinch the tubing with your thumb and index finger from your right hand and slide the fluid toward the bulb. This prevents the tube from malfunctioning and clogging. When you empty the bulb, unplug the stopper and empty the contents into a cup and record the amount in your log. After that, you can pour the fluid into the toilet. -After emptying the fluid, squeeze the bulb and place the stopper into the bulb. This creates suction to draw out the fluid from the pouch. When the bulb is compressed, it resembles a donut shape. The bulb will expand as fluid drains. Keep the bulb secure by fastening the bulb to your garment with a safety pin. Fasten the bulb below the place where tubing exits the body. There is a tab on the bulb to attach the safety pin made especially for that. -Remember to wash your hands for approximately 30sec before and after handling the drain system anddry your hands with a clean towel to prevent infection each time. SHOWERING: No showering while wound vac is on. You may shower when wound vac is off. Do not submerge your surgical site under water until cleared by your provider. ANTIBIOTIC THERAPY: You will continue antibiotics (clindamycin) Please take as prescribed and complete entire course SILVADENE: Please continue Silvadene to both nipples and umbilicus Apply a thick layer (like icing on cake) twice a day Completely wipe off before reapplying Continue until your follow up appointment in clinic PAIN: You may use Tylenol as needed for pain ACTIVITIES: Minimize contact to affected area(s). No heavy lifting until seen by No driving or operating heavy machinery when on narcotics. DIET: Slowly advance diet as tolerated to a regular healthy diet. Include healthy lean protein in your diet, this helps with wound healing. DO???S AND DON???TS FOR THE NEXT [address] a motor vehicle for 1-2 weeks or until you can handle the steering wheel without discomfort. Do not drive while taking your narcotic. Do not smoke or be around anyone who smokes for 2 weeks after your surgery this is because smoking delays healing and can lead to infection. Do not lift more than 5 pounds or bend at the waist to lift for 6 weeks. Do not participate in strenuous activities such as running or aerobics for 6 weeks. Do resume walking at a gentle pace. Protect your incisions from the sun for 6 months to 1 year. CALL MD IF: You have signs of infection that include: a temperature over 100.4F or 38C, redness or warmth spreading away from the incision lines after the first 48 hours, you notice a yellow pus-like or foul smelling drainage larger than dime size from the incisions or drainage sites. During office hours: Sunday - Sunday 8am-5pm call [phone]. On weekends or after hours call [phone] and ask the decorating kiln operator to page the plastic surgery resident fitness professional. CONTACT INFORMATION: During office hours: Sunday through Sunday 8 am to 5 pm Call [phone] On weekends or after hours: Call [phone] and ask the decorating kiln operator to page the Plastic Surgery Resident fitness professional. Post-Op Plan: - Follow up in 10-14 days for wound check Future Appointments Date Time Provider Department Center 05/21/2017 8:[address] [facility] 05/21/2017 9:00 AM Emily Choi MD [facility] 05/21/2017 12:30 PM Gustavo Mota MD [facility] 05/25/2017 9:40 AM Jolene Azevedo APRN [facility] 05/25/2017 10:30 AM [facility] IR ROOM 4 [facility] General Instructions INTERVENTIONAL RADIOLOGY DRAIN CARE INSTRUCTIONS Drains help [...] on instructions on how to do this. What [...] 4. Inject saline per MD order, 3-5 cc's. Forward flush only, do not aspirate back. [...] want the drain to be flushed once or twice daily to keep the fluid from plugging the drain. Flush the drain with 3-5 cc daily with the syringes supplied to you. FORWARD FLUSH ONLY, DO NOT ASPIRATE BACK. When to call the Interventional Radiology Department: Please call with any questions or concerns. If it is during regular office hours, please call [phone]. If it is after regular office hours, or on weekends or holidays, please call [phone] and ask to speak to the Balance Engineer fitness professional for Interventional Radiology. XX You have received [...] foul drainage occurs, please contact your M. DMary Jo Revised 03/05/15 Drainage Record NAME: Date of Surgery: Date: Time: If more than one drain, which one: Drainage Amount (per drain) Total Amount (per drain; in 24 hours) Future Appointments and Orders Future Appointments Provider Department Dept Phone 05/21/2017 8:[address] [facility] Radiation Oncology at [facility] [phone] 05/21/2017 9:00 AM Emily Choi MD Radiation Oncology at [facility] [phone] 05/21/2017 12:30 PM Rasheeda Trent RN; Gustavo Mota MD; [facility] Hematology and Oncology at [place] [phone] 05/25/2017 9:40 AM Jolene Azevedo APRN Plastic Surgery at [place] [phone] 05/25/2017 10:30 AM [facility] IR ROOM 4 Radiology at [place] [phone] Please expect a call from a radiology nurse within 3 days of your exam, you will need to follow theinstructions given at that time. Future Orders Complete By Expires Referral to Home Health - at DISCHARGE [[id number] CPT(R)] As directed Process Instructions: Scheduling Instructions: Comments: DOCUMENTATION FOR VNA SERVICES (INCLUDING THOSE PATIENTS WITH MEDICARE COVERAGE REQUIRING HOME VNA SERVICES AND/OR HOSPICE SERVICES) PATIENT'S LOCATION: Wendy Sandoval [address] [place] [phone] (home) Cell: Telephone Information: Stand Grinder's Name: self and spouse In discussion with the attending physician, it is certified that this patient is under their care and that they, or a Nurse Practitioner,Clinical Nurse specialist or Physician Wafer Slicer who is working directly with them, had a face to face encounter that meets the physician face to face encounter requirements with this patient on 05/15/2017 The encounter with the patient was in whole, or in part, for the following medical condition, whichis the primary reason for home health care services: abdominal wound dehiscence and YG drain plmt In discussion with the provider, it is certified that, based on their findings, the following services are medically necessary for home health services. To provide the following care/treatments with the clinical findings supporting the need for services as follows: HOME CARE ORDERS: RN ORDERS:Assess wound or incision, vital signs, cardiopulmonary status, nutrition, hydration, elimination, meds effectiveness and management; reinforce education re management of YG drains - assess, monitor and record drain output per MD orders DRAIN CARE: -The drains are made to collect fluid to reduce the risk of an infection and or the formation of a seroma or hematoma. The amount of fluid should decrease daily and turn light pink or light yellow. The drains will be removed by the provider when the output is < 30cc/day for two days in a row. Please keep a log of the output from each drain as you empty the drains and bring the log to your follow up visit with your provider. -At the end of each day milk the tubing and pour out the contents. This is done by sliding 2 fingers along the tubing toward the bulb. Hold the tubing in place with your thumb and index finger from your left hand and pinch the tubing with your thumb and index finger from your right hand and slide the fluid toward the bulb. This prevents the tube from malfunctioning and clogging. When you empty the bulb, unplug the stopper and empty the contents into a cup and record the amount in your log. After that, you can pour the fluid into the toilet. -After emptying the fluid, squeeze the bulb and place the stopper into the bulb. This creates suction to draw out the fluid from the pouch. When the bulb is compressed, it resembles a donut shape. The bulb will expand as fluid drains. Keep the bulb secure by fastening the bulb to your garment with a safety pin. Fasten the bulb below the place where tubing exits the body. There is a tab on the bulb to attach the safety pin made especially for that. -Remember to wash your hands for approximately 30sec before and after handling the drain system anddry your hands with a clean towel to prevent infection each time. VAC therapy changes are to begin on Sunday05/16/2017: 1. Cleanse or Irrigate wound with approved commercial wound cleanser or saline dressing at each VACchange. 2. Apply black foam to wound as ordered. (Please make sure that black foam is only applied inside the wound and not on healthy appearing skin. Placing sponge on healthy skin will cause ulcerations ofhealthy skin). 3. Change dressing every M-W- and as needed. *If VAC must be placed on hold for any reason, you may substitute dressing with a saline dressing (wet to dry) to be changed 1-2 times a day. *When appropriate, the VNA may instruct client or a support system to care for VAC dressings. VAC pressure settings are to be preset by [facility] at 125mm/HG on continuous with low intensity. *VAC treated wounds may have a unique ordor due to the interaction of the foam and wound fluids which contain bacteria and protein. * Skin prep may be used to protect the periwound skin. * Call [facility] with VAC problems or questions . PT ORDERS: Home safety evaluation. assess and continue rehab for managing ADL's and evaluate need for INTEGRATED CAMPAIGN MANAGER as appropriate HOME HEALTH CARE AGENCY: [facility] PHONE: [phone] FAX: [phone] Start of care: 24 hrs after discharge Please note that any additional orders needs or changes will need to be obtained from this patient's PCP: MD Abisai Fuller DR / [facility] [id number] All [facility] agencies which cover the area of patient's residence have been reviewed, either verbally luana writing, and patient/family have chosen the home health care agency noted Questions: Agency name and contact information: [facility] Patient location post discharge: home What services are requested: Registered Nurse Physical Therapy Start date: Responsible MD post discharge contact info: PCP Discharge Medications: Your Medications New Medications Dose Details clindamycin 300 mg Cap Commonly known as: CLEOCIN Take 1 capsule by mouth 3 times daily for 7 days. 300 mg Quantity: 21 capsule Refills: 0 Continued medications with new dosing Dose Details * ondansetron 4 mg Tab Commonly known as: ZOFRAN Take 1 tablet by mouth every 8 hours as needed for Nausea. What changed: Another medication with the same name was added. Make sure you understand how and when to take each. 4 mg Quantity: 6 tablet Refills: 0 * ondansetron 4 mg Tab Commonly known as: ZOFRAN Take 1 tablet by mouth every 8 hours as needed for Nausea. What changed: You were already taking a medication with the same name, and this prescription was added. Make sure you understand how and when to take each. 4 mg Quantity: 20 tablet Refills: 0 * silver sulfADIAZINE 1 % Crea Commonly known as: SILVADENE Apply topically 2 times daily for 20 days. To umbilicus, thick layer, twice a day. Completely wipe off before reapplying. What changed: Another medication with the same name was added. Make sure you understand how and when to take each. Quantity: 50 g Refills: 0 * silver sulfADIAZINE 1 % Crea Commonly known as: SILVADENE Apply topically 2 times daily. What changed: You were already taking a medication with the same name, and this prescription was added. Make sure you understand how and when to take each. Quantity: 50 g Refills: 0 * Notice: This list has 4 medication(s) that are the same as other medications prescribed for you. Read the directions carefully, and ask your doctor or other care provider to review them with you. Continued medications, unchanged Dose Details acetaminophen 325 [...] as needed. Quantity: 60 g Refills: 3 DILTiazem 240 mg Cp24 Commonly known as: CARDIZEM CD Take 1 capsule by mouth daily. 1 capsule Refills: 0 ferrous gluconate 324 mg (37.5 mg iron) Tab Take 324 mg by mouth daily. 324 mg Refills: 0 FLUoxetine 40 mg Cap Commonly known as: PROzac daily. Refills: 0 KLOR-CON M20 20 mEq Tbtq 2 times daily. Generic drug: potassium chloride Refills: 0 Lactobacillus 0.5 mg (100 million cell) Tab Commonly known as: BACID Take 1 tablet by mouth daily. 1 tablet Quantity: 30 tablet Refills: 0 levothyroxine 112 mcg Tab Commonly known as: SYNTHROID Take 1 tablet by mouth daily. 1 tablet Refills: 0 norethindrone 5 mg Tab Commonly known as: AYGESTIN Take 1 tablet by mouth daily. 1 tablet Refills: 0 triamcinolone 0.5 % Crea Commonly known as: ARISTOCORT Apply topically 3 times daily. Refills: 0 valsartan-hydrochlorothiazide 160-12.5 mg Tab Commonly known as: DIOVAN-HCT Take 1 tablet by mouth daily. 1 tablet Refills: 0 STOPPED Medications cephalexin 500 mg Cap Commonly known as: KEFLEX oxyCODONE 5 mg Tab Commonly known as: ROXICODONE Follow-up plan: Pt will continue IR drain per IR, will follow up with IR Continue silvadene to nipples and umbilicus Continue on PO clindamycin x 7 days Wound vac to abdomen with MWF bedside changes by VNA Other/Consults: Code status: full code Future Appointments and Orders Future Appointments Provider Department Dept Phone 05/21/2017 8:30 AM Suraj Mckeon, [facility] Radiation Oncology at [facility] [phone] 05/21/2017 9:00 AM Emily Choi MD Radiation Oncology at [facility] [phone] 05/21/2017 12:30 PM Rasheeda Trent RN; Gustavo Mota MD; CBP, SOCIAL WORK Hematology and Oncology at [facility] [phone] 05/25/2017 9:40 AM Jolene Azevedo APRN Plastic Surgery at [facility] [phone] 05/25/2017 10:30 AM [facility] IR ROOM 4 Radiology at [facility] [phone] Please expect a call from a radiology nurse within 3 days of your exam, you will need to follow theinstructions given at that time. Future Orders Complete By Expires Referral to Home Health - at DISCHARGE [[id number] CPT(R)] As directed Process Instructions: Scheduling Instructions: Comments: DOCUMENTATION FOR VNA SERVICES (INCLUDING THOSE PATIENTS WITH MEDICARE COVERAGE REQUIRING HOME VNA SERVICES AND/OR HOSPICE SERVICES) PATIENT'S LOCATION: Wendy Sandoval [address] [place] [phone] (home) Cell: Telephone Information: Stand Grinder's Name: self and spouse In discussion with the attending physician, it is certified that this patient is under their care and that they, or a Nurse Practitioner,Clinical Nurse specialist or Physician Wafer Slicer who is working directly with them, had a face to face encounter that meets the physician face to face encounter requirements with this patient on 05/15/2017 The encounter with the patient was in whole, or in part, for the following medical condition, whichis the primary reason for home health care services: abdominal wound dehiscence and YG drain plmt In discussion with the provider, it is certified that, based on their findings, the following services are medically necessary for home health services. To provide the following care/treatments with the clinical findings supporting the need for services as follows: HOME CARE ORDERS: RN ORDERS:Assess wound or incision, vital signs, cardiopulmonary status, nutrition, hydration, elimination, meds effectiveness and management; reinforce education re management of YG drains - assess, monitor and record drain output per MD orders DRAIN CARE: -The drains are made to collect fluid to reduce the risk of an infection and or the formation of a seroma or hematoma. The amount of fluid should decrease daily and turn light pink or light yellow. The drains will be removed by the provider when the output is < 30cc/day for two days in a row. Please keep a log of the output from each drain as you empty the drains and bring the log to your follow up visit with your provider. -At the end of each day milk the tubing and pour out the contents. This is done by sliding 2 fingers along the tubing toward the bulb. Hold the tubing in place with your thumb and index finger from your left hand and pinch the tubing with your thumb and index finger from your right hand and slide the fluid toward the bulb. This prevents the tube from malfunctioning and clogging. When you empty the bulb, unplug the stopper and empty the contents into a cup and record the amount in your log. After that, you can pour the fluid into the toilet. -After emptying the fluid, squeeze the bulb and place the stopper into the bulb. This creates suction to draw out the fluid from the pouch. When the bulb is compressed, it resembles a donut shape. The bulb will expand as fluid drains. Keep the bulb secure by fastening the bulb to your garment with a safety pin. Fasten the bulb below the place where tubing exits the body. There is a tab on the bulb to attach the safety pin made especially for that. -Remember to wash your hands for approximately 30sec before and after handling the drain system anddry your hands with a clean towel to prevent infection each time. VAC therapy changes are to begin on Sunday05/16/2017: 1. Cleanse or Irrigate wound with approved commercial wound cleanser or saline dressing at each VACchange. 2. Apply black foam to wound as ordered. (Please make sure that black foam is only applied inside the wound and not on healthy appearing skin. Placing sponge on healthy skin will cause ulcerations ofhealthy skin). 3. Change dressing every M-W- and as needed. *If VAC must be placed on hold for any reason, you may substitute dressing with a saline dressing (wet to dry) to be changed 1-2 times a day. *When appropriate, the VNA may instruct client or a support system to care for VAC dressings. VAC pressure settings are to be preset by [facility] at 125mm/HG on continuous with low intensity. *VAC treated wounds may have a unique ordor due to the interaction of the foam and wound fluids which contain bacteria and protein. * Skin prep may be used to protect the periwound skin. * Call [facility] with VAC problems or questions . PT ORDERS: Home safety evaluation. assess and continue rehab for managing ADL's and evaluate need for INTEGRATED CAMPAIGN MANAGER as appropriate HOME HEALTH CARE AGENCY: [facility]. PHONE: [phone] FAX: [phone] Start of care: 24 hrs after discharge Please note that any additional orders needs or changes will need to be obtained from this patient's PCP: MD Abisai Fuller DR [address] / [facility] [id number] All [facility] agencies which cover the area of patient's residence have been reviewed, either verbally luana writing, and patient/family have chosen the home health care agency noted Questions: Agency name and contact information: [facility] Patient location post discharge: home What services are requested: Registered Nurse Physical Therapy Start date: Responsible MD post discharge contact info: PCP Future Appointments Date Time Provider Department Center 05/21/2017 8:[address] [facility] 05/21/2017 9:00 AM Emily Choi MD [facility] 05/21/2017 12:30 PM Gustavo Mota MD [facility] 05/25/2017 9:40 AM Jolene Azevedo APRN [facility] 05/25/2017 10:30 AM [facility] IR ROOM 4 IR [facility] Primary Care Provider: Trinh Coates MD [phone] VNA: Discharge Procedure Orders Referral to Home Health - at DISCHARGE Order Comments: DOCUMENTATION FOR VNA SERVICES (INCLUDING THOSE PATIENTS WITH MEDICARE COVERAGE REQUIRING HOME VNA SERVICES AND/OR HOSPICE SERVICES) PATIENT'S LOCATION: [address] [phone] (home) Cell: Telephone Information: Stand Grinder's Name: self and spouse In discussion with the attending physician, it is certified that this patient is under their care and that they, or a Nurse Practitioner,Clinical Nurse specialist or Physician Wafer Slicer who is working directly with them, had a face to face encounter that meets the physician face to face encounter requirements with this patient on 05/15/2017 The encounter with the patient was in whole, or in part, for the following medical condition, whichis the primary reason for home health care services: abdominal wound dehiscence and YG drain plmt In discussion with the provider, it is certified that, based on their findings, the following services are medically necessary for home health services. To provide the following care/treatments with the clinical findings supporting the need for services as follows: HOME CARE ORDERS: RN ORDERS:Assess wound or incision, vital signs, cardiopulmonary status, nutrition, hydration, elimination, meds effectiveness and management; reinforce education re management of YG drains - assess, monitor and record drain output per MD orders DRAIN CARE: -The drains are made to collect fluid to reduce the risk of an infection and or the formation of a seroma or hematoma. The amount of fluid should decrease daily and turn light pink or light yellow. The drains will be removed by the provider when the output is < 30cc/day for two days in a row. Please keep a log of the output from each drain as you empty the drains and bring the log to your follow up visit with your provider. -At the end of each day milk the tubing and pour out the contents. This is done by sliding 2 fingers along the tubing toward the bulb. Hold the tubing in place with your thumb and index finger from your left hand and pinch the tubing with your thumb and index finger from your right hand and slide the fluid toward the bulb. This prevents the tube from malfunctioning and clogging. When you empty the bulb, unplug the stopper and empty the contents into a cup and record the amount in your log. After that, you can pour the fluid into the toilet. -After emptying the fluid, squeeze the bulb and place the stopper into the bulb. This creates suction to draw out the fluid from the pouch. When the bulb is compressed, it resembles a donut shape. The bulb will expand as fluid drains. Keep the bulb secure by fastening the bulb to your garment with a safety pin. Fasten the bulb below the place where tubing exits the body. There is a tab on the bulb to attach the safety pin made especially for that. -Remember to wash your hands for approximately 30sec before and after handling the drain system anddry your hands with a clean towel to prevent infection each time. VAC therapy changes are to begin on Sunday05/16/2017: 1. Cleanse or Irrigate wound with approved commercial wound cleanser or saline dressing at each VACchange. 2. Apply black foam to wound as ordered. (Please make sure that black foam is only applied inside the wound and not on healthy appearing skin. Placing sponge on healthy skin will cause ulcerations ofhealthy skin). 3. Change dressing every M-W- and as needed. *If VAC must be placed on hold for any reason, you may substitute dressing with a saline dressing (wet to dry) to be changed 1-2 times a day. *When appropriate, the VNA may instruct client or a support system to care for VAC dressings. VAC pressure settings are to be preset by [facility] at 125mm/HG on continuous with low intensity. *VAC treated wounds may have a unique ordor due to the interaction of the foam and wound fluids which contain bacteria and protein. * Skin prep may be used to protect the periwound skin. * Call [facility] with VAC problems or questions . PT ORDERS: Home safety evaluation. assess and continue rehab for managing ADL's and evaluate need for INTEGRATED CAMPAIGN MANAGER as appropriate HOME HEALTH CARE AGENCY: [facility]. PHONE: [phone] FAX: [phone] Start of care: 24 hrs after discharge Please note that any additional orders needs or changes will need to be obtained from this patient's PCP: Trinh Coates MD [address] / [facility] [id number] All VNA agencies which cover the area of patient's residence have been reviewed, either verbally luana writing, and patient/family have chosen the home health care agency noted Order Specific Question Answer Comments Agency name and contact information [facility] Patient location post discharge home What services are requested Registered Nurse What services are requested Physical Therapy Responsible MD post discharge contact info PCP General Instructions INTERVENTIONAL RADIOLOGY DRAIN CARE INSTRUCTIONS Drains help [...] on instructions on how to do this. What [...] 4. Inject saline per MD order, 3-5 cc's. Forward flush only, do not aspirate back. [...] the measuring cup or any other surface. 5. 6. Use one hand to squeeze all of the air from the drain. With the drain still squeezed, use your other hand to replace the top. This creates the suction necessary to remove the fluids from your body. 7. Pin the drain back on your clothing to avoid pulling it out accidently. 8. Wash your hands again. Remember to wash your hands before and after the procedure to reduce the risk of infection. Flushing the Drain: Your doctor may want the drain to be flushed once or twice daily to keep the fluid from plugging the drain. Flush the drain with 3-5 cc daily with the syringes supplied to you. FORWARD FLUSH ONLY, DO NOT ASPIRATE BACK. When to call the Interventional Radiology Department: Please call with any questions or concerns. If it is during regular office hours, please call [phone]. If it is after regular office hours, or on weekends or holidays, please call [phone] and ask to speak to the Balance Engineer fitness professional for Interventional Radiology. XX You have received [...] Total Amount (per drain; in 24 hours) Your care was managed by [facility]. If you haveany questions or concerns, please feel free to contact us. Provider Contact Information: [place] [facility] [place] documented in this encounter Discharge Instructions * Discharge Instructions* Jazmyn Burrell RN - 05/14/2017 3:48 PM EDT Images from the original note [...] on instructions on how to do this. What [...] 4. Inject saline per MD order, 3-5 cc's. Forward flush only, do not aspirate back. [...] want the drain to be flushed once or twice daily to keep the fluid from plugging the drain. Flush the drain with 3-5 cc daily with the syringes supplied to you. FORWARD FLUSH ONLY, DO NOT ASPIRATE BACK. When to call the Interventional Radiology Department: Please call with any questions or concerns. If it is during regular office hours, please call [phone]. If it is after regular office hours, or on weekends or holidays, please call [phone] and ask to speak to the Balance Engineer fitness professional for Interventional Radiology. XX You have received [...] Total Amount (per drain; in 24 hours) * Patient Instructions* Alma Castillo PA - 05/15/2017 8:00 AM EDT DISCHARGE INSTRUCTIONS WOUND CARE: Keep wound vac to abdomen clean dry and intact. VAC therapy changes are to begin on Sunday05/16/2017 1. Cleanse or Irrigate wound with approved commercial wound cleanser or saline dressing at each VACchange. 2. Apply black foam to wound as ordered. (Please make sure that black foam is only applied inside the wound and not on healthy appearing skin. Placing sponge on healthy skin will cause ulcerations ofhealthy skin). 3. Change dressing every M-W-F and as needed. *If VAC must be placed on hold for any reason, you may substitute dressing with saline dressing (wet to dry) to be changed 1-2 times a day. *When appropriate, the VNA may instruct client or a support system to care for VAC dressings. VAC pressure settings are to be preset by [facility] at 125mm/HG on continuous with low intensity. *VAC treated wounds may have a unique ordor due to the interaction of the foam and wound fluids which contain bacteria and protein. * Skin prep may be used to protect the periwound skin. * Call [facility] with VAC problems or questions . DRAIN CARE: -The drains are made to collect fluid to reduce the risk of an infection and or the formation of a seroma or hematoma. The amount of fluid should decrease daily and turn light pink or light yellow. The drains will be removed by the provider when the output is < 30cc/day for two days in a row. Please keep a log of the output from each drain as you empty the drains and bring the log to your follow up visit with your provider. -At the end of each day milk the tubing and pour out the contents. This is done by sliding 2 fingers along the tubing toward the bulb. Hold the tubing in place with your thumb and index finger from your left hand and pinch the tubing with your thumb and index finger from your right hand and slide the fluid toward the bulb. This prevents the tube from malfunctioning and clogging. When you empty the bulb, unplug the stopper and empty the contents into a cup and record the amount in your log. After that, you can pour the fluid into the toilet. -After emptying the fluid, squeeze the bulb and place the stopper into the bulb. This creates suction to draw out the fluid from the pouch. When the bulb is compressed, it resembles a donut shape. The bulb will expand as fluid drains. Keep the bulb secure by fastening the bulb to your garment with a safety pin. Fasten the bulb below the place where tubing exits the body. There is a tab on the bulb to attach the safety pin made especially for that. -Remember to wash your hands for approximately 30sec before and after handling the drain system anddry your hands with a clean towel to prevent infection each time. SHOWERING: No showering while wound vac is on. You may shower when wound vac is off. Do not submerge your surgical site under water until cleared by your provider. ANTIBIOTIC THERAPY: You will continue antibiotics (clindamycin) Please take as prescribed and complete entire course SILVADENE: Please continue Silvadene to both nipples and umbilicus Apply a thick layer (like icing on cake) twice a day Completely wipe off before reapplying Continue until your follow up appointment in clinic PAIN: You may use Tylenol as needed for pain ACTIVITIES: Minimize contact to affected area(s). No heavy lifting until seen by MD. No driving or operating heavy machinery when on narcotics. DIET: Slowly advance diet as tolerated to a regular healthy diet. Include healthy lean protein in your diet, this helps with wound healing. DO???S AND DON???TS FOR THE NEXT [address] a motor vehicle for 1-2 weeks or until you can handle the steering wheel without discomfort. Do not drive while taking your narcotic. Do not smoke or be around anyone who smokes for 2 weeks after your surgery this is because smoking delays healing and can lead to infection. Do not lift more than 5 pounds or bend at the waist to lift for 6 weeks. Do not participate in strenuous activities such as running or aerobics for 6 weeks. Do resume walking at a gentle pace. Protect your incisions from the sun for 6 months to 1 year. CALL MD IF: You have signs of infection that include: a temperature over 100.4F or 38C, redness or warmth spreading away from the incision lines after the first 48 hours, you notice a yellow pus-like or foul smelling drainage larger than dime size from the incisions or drainage sites. During office hours: Sunday - Sunday 8am-5pm call [phone]. On weekends or after hours call [phone] and ask the decorating kiln operator to page the plastic surgery resident fitness professional. CONTACT INFORMATION: During office hours: Sunday through Sunday 8 am to 5 pm Call [phone] On weekends or after hours: Call [phone] and ask the decorating kiln operator to page the Plastic Surgery Resident fitness professional. Post-Op Plan: - Follow up in 10-14 days for wound check Future Appointments Date Time Provider Department Center 05/21/2017 8:[address] [facility] 05/21/2017 9:00 AM Emily Choi MD [facility] 05/21/2017 12:30 PM Gustavo Mota MD [facility] 05/25/2017 9:40 AM Jolene Azevedo APRN [facility] 4 [facility] 05/25/2017 10:30 AM [facility] IR ROOM 4 [facility] documented in this encounter Medications at [...] mg DR tablet 1 CAP daily 03/27/2014 clindamycin (CLEOCIN) 300 mg Capsule Take 1 capsule by mouth 3 times daily for 7 days. 21 capsule 05/15/2017 05/22/2017 silver sulfADIAZINE (SILVADENE) 1 % Cream Apply topically 2 times daily. 50 g 05/15/2017 07/03/2017 ondansetron (ZOFRAN) 4 mg Tablet Take 1 tablet by mouth every 8 hours as needed for Nausea. 20 tablet 05/15/2017 05/25/2017 silver sulfADIAZINE (SILVADENE) 1 % Cream Apply [...] as of this encounter Progress Notes * Lucina Allred RN - 05/15/2017 2:07 PM EDT Pt d/c to home with VNA per md order. Patient AOx4 hrr, lung sounds clear, no n/v sob or chest painat time of discharge. +bs, lbm 05/15/17, voiding clear yellow urine. Patient ambulating independently at this time. Pain well controlled with PRN APAP. All LDA's removed. All belongings home with patient and spouse. Prescriptions given to patient, all discharge instructions reviewed with patient andspouse. Extensive education provided regarding the portable wound vacuum and drain care. Both pt and spouse verbalized understanding. All questions answered. Report to VNA called, and report faxed. Please see flowsheet for full assessment. * Ira Velazquez RN - 05/15/2017 11:52 AM EDT OFFICE OF CARE MANAGEMENT Wound VAC has been approved and released for pt to discharge today. CM will confirm services with VNA. [facility]. PHONE: [phone] FAX: [phone] [id number] ready vac. Anticipate discharge later today. [employer] form signed and faxed. * Ira Velazquez RN - 05/15/2017 10:45 AM EDT OFFICE OF CARE MANAGEMENT Met with pt this am and we discussed the medical team are hoping to be able to secure needed DME and have pt discharge home today if poss. Per report pt will discharge on PO abx. We discussed the wound VAC form has been completed and signed by and faxed to [facility]- awaiting confirmation/release. CM will contact [facility] and alert need for services to being within 24 hrs. * Christy Keenan MD - 05/15/2017 8:33 AM EDT INTERVENTIONAL RADIOLOGY Inpatient Progress Note Admitted 05/10/2017 Procedure(s): US guided left axillary drain placement Post-procedure day: #1 Time of patient encounter: 6:45 AM 24 Hour Events: -No acute overnight events -Left axillary drain: 30 cc/24 hours of serous fluid drainage -No pain at left axillary drain insertion site Last Value 24 Hour Range Temperature 37.2 ??C (99 ??F) Temp: [37 ??C (98.6 ??F)-37.4 ??C (99.3 ??F)] Heart Rate 72 Heart Rate: [72-85] Blood Pressure (!) 146/92 BP: (140-154)/(84-93) Respiratory Rate 16 Resp: [16-18] SpO2 94 % SpO2: [86 %-98 %] Physical Exam GEN No distress, A&O CARDS RRR LUNGS CTA B/L ABD Non tender EXT Left axillary drain site, nontender, CDI Drains/Tubes: Left axillary drain: 30 cc serous fluid Intake/Output Summary (Last 24 hours) at 05/15/17 0833 Last data filed at 05/15/17 0831 Gross per 24 hour Intake 1800 ml Output 580 ml Net 1220 ml Labs: Reviewed Micro: Left axillary fluid: 05/11: no growth to date 05/15: no growth to date Imaging: No interval imaging. Assessment: 51 y.o. female with Wendy Sandoval??is a 51 y.o.??female??with breast CA to the left. ?Pt underwent bilateral breast reconstruction after mastectomy with SALVADOR flaps (04/26/17); ??complicated by intraoperative demise followed by Tissue Supervisor Fusing Room placement.??Patient has a RIGHT breast insitu with large volume output. ??The drain became partially dislodged, IR placed a new drain on 04/30 via the existing tract. Patient presented to clinic yesterday with fevers, malaise, fatigue and was found to have a LEFT??axillary fluid collection. IR aspirated 45 cc of clear serous fliud on 05/11with trace amount of fluid remaining. Patient then had increased axilla swelling and a re-accumulated fluid collection. Left axillary drain placed on 05/14 with continued serous drainage. Plan: Left axillary drain: -Flush with 5-10 cc normal saline every 8-12 hours. -Record output -Plan for IR drain check in 2 weeks, order placed and activities attendant notified. Christy Keenan Interventional Radiology Balance Engineer PGY2 05/15/2017 * Alma Castillo PA - 05/15/2017 7:38 AM EDT PLASTIC SURGERY INPATIENT PROGRESS NOTE Attending: MALI LAKHANI Patient Location: [address] [place] [address] Hospital Admission Date: 05/10/2017 ID: Wendy Sandoval is a 51 y.o. female patient with PMH of JACQUELYN on CPAP, left breast CA, ER/ID+, HEr2-, HTN, HLD s/p bilateral mastectomy and failed SIEA, left axillary SLN excision and reconstruction with bilateral TE 04/26/2017. S: Doing well this morning with some resolution of pain. O: Patient Vitals for the past 8 hrs: BP Temp Temp src Resp SpO2 05/15/17 0412 (!) 145/93 37 ??C (98.6 ??F) Oral 16 95 % 05/14/17 2342 (!) 145/93 37.2 ??C (99 ??F) Oral 17 95 % Temp: [37 ??C (98.6 ??F)-37.4 ??C (99.3 ??F)] Heart Rate: [79-85] Resp: [16-18] BP: (140-154)/(84-93) Intake/Output Summary (Last 24 hours) at 05/15/17 0738 Last data filed at 05/15/17 0708 Gross per 24 hour Intake 1380 ml Output 580 ml Net 800 ml General: well developed, well nourished, appearing in no acute distress, pleasant, cooperative, resting comfortably HEENT: atraumatic, normocephalic Respiratory: nonlabored, symmetric chest movement Cardiovascular: RRR Breasts: incisions healing well bilaterally, silvadene on to bilateral nipples, bra on, no erythema/edema; no recurrent fluid L axilla Abdomen: transverse abdominal incision healing well, small area at midline of dehiscence of approximatley 3.5cm, no surrounding erythema/edema, wound vac in place, no odor, no purulence, no active drainage, bilateral YG drains in with ss output Umbilicus: necrotic, with silvadene Extremities:warm/dry, well perfused with good capillary refill Skin: pink/warm/dry Labs: Last wbc, hgb, hct plt Recent Labs 05/14/17 0332 WBC 12.3* HGB 10.6* HCT 32.4* Last 3 Coags No results for input(s): PT, INR, PTT in the last 168 hours. Last Ca, Mg, Phos Recent Labs 05/10/17 1413 CALCIUM 8.6 Last 3 Lytes Recent Labs 05/10/17 1413 05/01/17 0339 04/30/17 0327 NA 141 142 145 K 3.4* 3.7 3.8 CL 100 102 106 CO2 25 27 26 BUN 20* 17 16 CREATININE 0.87 1.01 1.00 Last 3 wbc, hgb, hct plt Recent Labs 05/14/17 0332 05/13/17 0346 05/10/17 1720 WBC 12.3* 13.1* 18.6* HGB 10.6* 10.4* 11.7 HCT 32.4* 31.1* 35.3* PLATELET 575* 558* 567* Urine cultures 05/11/17: Date and Time Status ? 05/13/2017 ??2:48 PM Preliminary result ??-- Abnormal ? Component Results ? Component Value ? Urine Culture (Abnormal) 10,000-49,000 cfu/ml Escherichia coli 10,000-49,000 cfu/ml Enterococcus species possible VRE, note Vancomycin Resistance ? Specimen Source Information ? Specimen Type: Clean Catch Urine ? Susceptibility ? Escherichia coli Enterococcus species ? MICROSCAN METHOD MICROSCAN METHOD ? Amikacin Sensitive ? Ampicillin Sensitive Resistant ? Ampicillin + Sulbactam Sensitive ? Aztreonam Sensitive ? Cefazolin Sensitive ? Cefepime Sensitive ? Ceftazidime Sensitive ? Ceftriaxone Sensitive ? Cefuroxime Sensitive ? Ciprofloxacin Sensitive Resistant ? Daptomycin >4 ? Gentamicin Sensitive ? Gentamicin 500 Sensitive ? Levofloxacin Sensitive Resistant ? Linezolid Sensitive ? Meropenem Sensitive ? Nitrofurantoin Sensitive Intermediate ? Penicillin Resistant ? Piperacillin/Tazobactam Sensitive ? Streptomycin 1000 Sensitive ? Tetracycline Sensitive Resistant ? Tobramycin Sensitive ? Trimethoprim/Sulfa Sensitive ? Vancomycin Resistant ? 05/14/17 UA: Results for WENDY SANDOVAL ( ) as of 05/15/2017 07:40 Ref. Range 05/14/2017 17:30 Color UA Latest Ref Range: Yellow Yellow Appearance UA Latest Ref Range: Clear Clear Spec [place] UA Latest Ref Range: 1.002 - 1.030 1.018 pH UA Latest Ref Range: 5.0 - 8.0 6.0 Protein UA Latest Ref Range: Negative mg/dL 100 (A) Glucose UA Latest Ref Range: Negative mg/dL Negative Ketones UA Latest Ref Range: Negative mg/dL Negative Bilirubin UA Latest Ref Range: Negative mg/dL Negative Urobilinogen UA Latest Ref Range: Normal mg/dL Normal Blood UA Latest Ref Range: Negative mg/dL Negative Leukocytes UA Latest Ref Range: Negative mcL Negative Nitrite UA Latest Ref Range: Negative Negative WBC UA Latest Ref Range: 0 - 5 /HPF 2 RBC UA Latest Ref Range: 0 - 4 /HPF 2 Hyaline Cast UA Latest Ref Range: 0 - 2 /LPF 4 (H) Squam Epith UA Latest Ref Range: <=4 /HPF 1 Culture Reflexed Unknown No A/P: Wendy Sandoval is a 51 y.o. female patient s/p bilat mastectomy, left SNL excision, TE placement 04/26. F/u left axillary fluid culture PRS will remove breast sutures today continue IS Prealbumin 46 (05/10), continue protein intake Wound vac on, pt will need wound vac for home for MWF bedside dressing changes by VNA Left axillary drain placed by IR yesterday Continue bilateral drain care and output monitoring Continue clindamycin Continue silvadene to nipples and umbilicus Plan to d/c home with vac Today or Sun pending progress Future Appointments Date Time Provider Department Center 05/21/2017 8:[address] [facility] 05/21/2017 9:00 AM Emily Choi MD [facility] 05/21/2017 12:30 PM Gustavo Mota MD [facility] 05/25/2017 10:30 AM [facility] IR ROOM 4 IR [facility] Alma Castillo PA-C Plastic Surgery Pager [phone] * Darcy García RN - 05/14/2017 5:40 PM EDT Patient stable this shift. Bilateral wound care to nipple, umbilicus with silvadene, non-adherent gauze. Surgical bra. Wound vac applied to transverse abdominal wound per plastic surgery team; -125 continuous. IR placed additional YG dressing to L axilla this shift for a total of YG x 3. Drainage is serosanguinous. and daughter at bedside. Independent ambulation. Awaiting ID recs. Pain managed by oral medication. * Jazmyn Burrell RN - 05/14/2017 3:14 PM EDT To procedure room 1 via stretcher. Pt remains on stretcher in supine position. All monitors, O2, safety strap in place. Med's per protocol. * Kaveh Whiteside MD - 05/14/2017 3:08 PM EDT PLASTIC SURGERY INPATIENT PROGRESS NOTE Attending: MALI LAKHANI Patient Location: [facility] Hospital Admission Date: 05/10/2017 ID: Wendy Sandoval is a 51 y.o. female patient with PMH of JACQUELYN on CPAP, left breast CA, ER/ID+, HEr2-, HTN, HLD s/p bilateral mastectomy and failed SIEA, left axillary SLN excision and reconstruction with bilateral TE 04/26/2017. S: Doing well this morning with some resolution of pain. O: Patient Vitals for the past 8 hrs: BP Temp Temp src Resp SpO2 05/14/17 1453 140/84 37 ??C (98.6 ??F) Temporal 16 98 % 05/14/17 1117 (!) 149/93 37.4 ??C (99.3 ??F) Oral 16 98 % 05/14/17 0720 (!) 149/95 37.4 ??C (99.3 ??F) Oral 16 97 % Temp: [36.6 ??C (97.9 ??F)-37.4 ??C (99.3 ??F)] Resp: [16-18] BP: (140-166)/(84-101) Intake/Output Summary (Last 24 hours) at 05/14/17 1508 Last data filed at 05/14/17 1321 Gross per 24 hour Intake 1500 ml Output 290 ml Net 1210 ml General: well developed, well nourished, appearing in no acute distress, pleasant, cooperative, resting comfortably HEENT: atraumatic, normocephalic Respiratory: nonlabored, symmetric chest movement Cardiovascular: RRR Breasts: incisions healing well bilaterally, silvadene on to bilateral nipples, bra on, no erythema/edema; no recurrent fluid L axilla Abdomen: transverse abdominal incision healing well, small area at midline of dehiscence of approximatley 3.5cm, no surrounding erythema/edema, packing in place, no odor, no purulence, no active drainage, bilateral YG drains in with ss output Umbilicus: necrotic, with silvadene Extremities:warm/dry, well perfused with good capillary refill Skin: pink/warm/dry Labs: Last wbc, hgb, hct plt Recent Labs 05/14/17 0332 WBC 12.3* HGB 10.6* HCT 32.4* Last 3 Coags No results for input(s): PT, INR, PTT in the last 168 hours. Last Ca, Mg, Phos Recent Labs 05/10/17 1413 CALCIUM 8.6 Last 3 Lytes Recent Labs 05/10/17 1413 05/01/17 0339 04/30/17 0327 NA 141 142 145 K 3.4* 3.7 3.8 CL 100 102 106 CO2 25 27 26 BUN 20* 17 16 CREATININE 0.87 1.01 1.00 Last 3 wbc, hgb, hct plt Recent Labs 05/14/17 0332 05/13/17 0346 05/10/17 1720 WBC 12.3* 13.1* 18.6* HGB 10.6* 10.4* 11.7 HCT 32.4* 31.1* 35.3* PLATELET 575* 558* 567* A/P: Wendy Sandoval is a 51 y.o. female patient s/p bilat mastectomy, left SNL excision, TE placement 04/26. F/u left axillary fluid culture continue IS Prealbumin 46 (05/10), continue protein intake Wound vac placed today at bedside IR today for drain for axillary collectoin Continue bilateral drain care and output monitoring Continue clindamycin for now Continue silvadene to nipples and umbilicus Plan to d/c home with vac or Sun pending progress Future Appointments Date Time Provider Department Center 05/21/2017 8:[address] [facility] 05/21/2017 9:00 AM Emily Choi MD [facility] 05/21/2017 12:30 PM Gustavo Mota MD [facility] 05/25/2017 10:30 AM [facility] IR ROOM 4 [facility] Kaveh Whiteside MD Plastic Surgery, PGY-7 * Yo Krueger MD - 05/14/2017 12:00 PM EDT Plastic Surgery Service Wound Vac Change Note ID: Wendy Sandoval ( ) Wound Location: midline lower abdomen Wound Dimensions: 6cm W x 2cm L x 4cm D Tunneling: no Procedure: No medication was given prior to the procedure for pain and anxiolysis. Necrotic fat wasdebrided with a scissor. A single piece of black sponge was used. The sponge and abdiaziz-wound skin were covered with a thin film drape. A hole was cut in the drape for the josh pad, which was applied and connected to the canister. Suction was applied at -125 mmHg continuous suction with good seal. The patient tolerated the procedure well without need for additional pain medication. Yo Krueger MD Plastic Surgery, PGY-4 05/15/2017 * Jazmyn Burrell RN - 05/14/2017 10:07 AM EDT [facility] Name: WENDY SANDOVAL Date of : 1965 AGE 51 y.o. [address]: [address] [place] [phone] (home) [phone] (work) Mobile: Telephone Information: Referring Provider: No ref. provider found REASON FOR VISIT: L axillary drain (Assessment/Plan: 51 y.o. female ??with breast CA to the left. ?Pt underwent bilateral breast reconstruction after mastectomy with SALVDAOR flaps (04/26/17); ??complicated by intraoperative demise followed by Tissue Supervisor Fusing Room placement.??Patient has a RIGHT breast insitu with large volume output. ??The drain became partially dislodged, IR placed a new drain on 04/30 via the existing tract. Patient presented to clinic yesterday with fevers, malaise, fatigue and was found to have a LEFT??axillary fluid collection. IR aspirated 45 cc of clear serous fliud on 05/11 with trace amount of fluid remaining.Patient with increased axilla swelling and fluid collection on repeat US, IR consulted for drain placement. ?Labs to be performed day of procedure: none ?Medication to STOP: ??none ?Sedation: Fentanyl vs moderate sedation ?Planned access site: LEFT??axilla ?Consent: Pending ?? Becki Oscar MD 05/14/2017Anticoagulant/antiplatelet/herbal med. stopped on per order. Allergies Allergen Reactions ??? Pcn [Penicillins] ??? Zoloft [Sertraline] PSORIASIS FLARE Pertinent PMH: Patient Active Problem List Diagnosis Code ??? Hypertension I10 ??? Depression F32.9 ??? Obstructive sleep apnea (adult) (pediatric) G47.33 ??? OA (osteoarthritis) M19.90 ??? Overweight(278.02) E66.3 ??? Hyperparathyroidism E21.3 ??? Malignant neoplasm of upper-outer quadrant of left breast in female, estrogen receptor wdodaapvI49.412, Z17.0 ??? Status post bilateral breast reconstruction Z98.890 ??? Surgery follow-up Z09 ??? Abdominal wound dehiscence T81.30XA Pertinent PSH: Past Surgical History: Procedure Laterality Date ??? BREAST BIOPSY Right 11/01 ??? SECTION x 2 ??? HAND SURGERY Right ??? PRG EMG, LARYNX N/A 11/02/2015 FACIAL NERVE MONITORING, SETUP LARYNGEAL performed by Valentina Lucas MD at [facility] OR ??? PRO BREAST RECONSTRUC W FREE FLAP Bilateral 04/26/2017 @BREAST RECONSTRUCTION W/ FREE FLAP, SUSAN (WRVU 42.58) [facility] ??? PRO BREAST RECONSTRUC W TISS EXPANDR Bilateral 04/26/2017 BREAST RECONSTRUCTION, IMMEDIATE OR DELAYED, W/ TISSUE BEAUTY OPERATOR APPRENTICE, INCLUDING SUBSEQUENT EXPANSION (WRVU 18.5) performed by Mali Lakhani MD at [facility] OR ??? PRO EXPLORE PARATHYROID GLANDS N/A 11/02/2015 PARATHYROIDECTOMY OR EXPLORATION OF PARATHYROID(S) performed by Valentina Lucas MD at [facility] OR ? ? PRO FULL THICK GRFT TRUNK <20 SQCM Bilateral 04/26/2017 FTSG, FREE, DIR CLOSE DONOR SITE, TRUNK, 20 SQ CM OR LESS (WRVU 9.15) performed by Mali Lakhani MD at [facility] OR ??? PRO MASTECTOMY, SIMPLE, COMPLETE Bilateral 04/26/2017 MASTECTOMY, SIMPLE, COMPLETE-SUSAN (WRVU 15.85) performed by Jolie Menendez MD at [facility] OR ??? PRO PARTIAL REMOVAL OF RIB Bilateral 04/26/2017 EXCISION OF RIB, PARTIAL (WRVU 7.26) performed by Mali Lakhani MD at [facility] OR ??? PRO REMOVE ARMPITS LYMPH NODES COMPLT Left 04/26/2017 LYMPHADENECTOMY, AXILLARY, COMPLETE (WRVU 13.87) performed by Jolie Menendez MD at [facility] OR ??? PRO THYMECTOMY, TRANSCERVICAL N/A 11/02/2015 THYMECTOMY, TRANSCERVICAL APPROACH performed by Valentina Lucas MD at [facility] OR ??? SHOULDER SURGERY Left [...] Start Date End Date Taking? Authorizing Provider silver sulfADIAZINE (SILVADENE) 1 % Cream Apply topically 2 times daily for 20 days. To umbilicus, thick layer, twice a day. Completely wipe off before reapplying. 05/04/17 05/24/17 Jolene Azevedo APRN Lactobacillus (BACID) 0.5 mg (100 million cell) Tablet Take 1 tablet by mouth daily. 05/01/17 Alma Castillo PA ondansetron (ZOFRAN) 4 mg Tablet Take 1 tablet by mouth every 8 hours as needed for Nausea. Patient not taking: Reported on 05/04/2017 05/01/17 Alma Castillo PA valsartan-hydrochlorothiazide (DIOVAN-HCT) 160-12.5 [...] 2 times daily. 10/31/12 PROVIDER, HISTORICAL * Becki Oscar MD - 05/14/2017 9:25 AM EDT Images from the original note were not included. INTERVENTIONAL RADIOLOGY FOCUSED H&P and PRE-PROCEDURE NOTE: PCP: Trinh Coates MD Referring Physician: No ref. provider found Planned Procedure:?Aspiration of left axillary fluid collection Procedure Indication:?Fluid collection in the left axilla ? Presenting Diagnosis/ Complaint: ??Wendy Sandoval??is a 51 y.o.??female??with breast CA to the left. ?Pt underwent bilateral breast reconstruction after mastectomy with SALVADOR flaps (04/26/17); ??complicated by intraoperative demise followed by Tissue Supervisor Fusing Room placement. Patient has a RIGHT breast insitu with large volume output. ??The drain became partially dislodged, IR placed a new drain on 04/30 via the existing tract. Patient presented to clinic yesterday with fevers, malaise, fatigue andwas found to have a LEFT axillary fluid collection. IR aspirated 45 cc of clear serous fliud on 05/11 with trace amount of fluid remaining. Patient with increased axilla swelling and fluid collection on repeat US, IR consulted for drain placement. Past Medical/Surgical History: Patient Active Problem List Diagnosis Code ??? Hypertension I10 ??? Depression F32.9 ??? Obstructive sleep apnea (adult) (pediatric) G47.33 ??? OA (osteoarthritis) M19.90 ??? Overweight(278.02) E66.3 ??? Hyperparathyroidism E21.3 ??? Malignant neoplasm of upper-outer quadrant of left breast in female, estrogen receptor eruhassvL56.412, Z17.0 ??? Status post bilateral breast reconstruction [...] LARYNGEAL performed by Valentina Lucas MD at [facility] OR ??? PRO BREAST RECONSTRUC W FREE FLAP Bilateral 04/26/2017 @BREAST RECONSTRUCTION W/ FREE FLAP, SUSAN (WRVU 42.58) performed by Mali Lakhani MD at [facility] [place] ??? PRO BREAST RECONSTRUC W TISS EXPANDR Bilateral 04/26/2017 BREAST RECONSTRUCTION, IMMEDIATE OR DELAYED, W/ TISSUE BEAUTY OPERATOR APPRENTICE, INCLUDING SUBSEQUENT EXPANSION (WRVU 18.5) performed by Mali Lakhani MD at [facility] OR ??? PRO EXPLORE PARATHYROID GLANDS N/A 11/02/2015 PARATHYROIDECTOMY OR EXPLORATION OF PARATHYROID(S) performed by Valentina Lucas MD at [facility] OR ? ? PRO FULL THICK GRFT TRUNK <20 SQCM Bilateral 04/26/2017 FTSG, FREE, DIR CLOSE DONOR SITE, TRUNK, 20 SQ CM OR LESS (WRVU 9.15) performed by Mali Lakhani MD at [facility] OR ??? PRO MASTECTOMY, SIMPLE, COMPLETE Bilateral 04/26/2017 MASTECTOMY, SIMPLE, COMPLETE-SUSAN (WRVU 15.85) performed by Jolie Menendez MD at [facility] OR ??? PRO PARTIAL REMOVAL OF RIB Bilateral 04/26/2017 EXCISION OF RIB, PARTIAL (WRVU 7.26) performed by Mali Lakhani MD at [facility] OR ??? PRO REMOVE ARMPITS LYMPH NODES COMPLT Left 04/26/2017 LYMPHADENECTOMY, AXILLARY, COMPLETE (WRVU 13.87) performed by Jolie Menendez MD at [facility] OR ??? PRO THYMECTOMY, TRANSCERVICAL N/A 11/02/2015 THYMECTOMY, TRANSCERVICAL APPROACH performed by Valentina Lucas MD at [facility] OR ??? SHOULDER SURGERY Left ??? UMBILICAL HERNIA REPAIR Medications: No current facility-administered medications on file prior to encounter. Current Outpatient Prescriptions on File Prior to Encounter Medication Sig Dispense Refill ??? silver sulfADIAZINE (SILVADENE) 1 % Cream Apply topically 2 times daily for 20 days. To umbilicus, thick layer, twice a day. Completely wipe off before reapplying. 50 g 0 ??? Lactobacillus (BACID) 0.5 mg (100 million cell) Tablet Take 1 tablet by mouth daily. 30 tablet 0 ??? ondansetron (ZOFRAN) 4 mg Tablet Take 1 tablet by mouth every 8 hours as needed for Nausea. (Patient not taking: Reported on 05/04/2017) 6 tablet 0 ??? valsartan-hydrochlorothiazide (DIOVAN-HCT) 160-12.5 mg Tablet Take 1 tablet by mouth daily. ??? levothyroxine (SYNTHROID) 112 mcg Tablet Take 1 tablet by mouth daily. 0 ??? atorvastatin (LIPITOR) 20 mg Tablet Take 1 tablet by mouth daily. 0 ??? triamcinolone (ARISTOCORT) 0.5 % Cream Apply topically 3 times daily. ??? acetaminophen (TYLENOL) 325 mg Tablet Take 2 tablets by mouth every 4 hours as needed for Pain. ??? DILTiazem (CARDIZEM CD) 240 mg Capsule, Sust. Release 24 hr Take 1 capsule by mouth daily. ??? norethindrone (AYGESTIN) 5 mg Tablet Take 1 tablet by mouth daily. ??? ferrous gluconate 324 mg (37.5 mg iron) Tablet Take 324 mg by mouth daily. ??? clobetasol (TEMOVATE) 0.05 % Cream Apply to affected areas on knees, elbows and hands twice daily for two week cycles as needed. 60 g 3 ??? fluoxetine (PROZAC) 40 mg capsule daily. ??? KLOR-CON M20 20 mEq extended release tablet 2 times daily. Allergies: Pcn [penicillins] and Zoloft [sertraline] Social [...] his 60's ??? Ovarian Cancer Neg Hx Physical Examination: pending Labs: Lab Results Component Value Date WBC 12.3 (H) 05/14/2017 HCT 32.4 (L) 05/14/2017 PLATELET 575 (H) 05/14/2017 BUN 20 (H) 05/10/2017 CREATININE 0.87 05/10/2017 ALKPHOS 79 03/29/2017 AST 12 03/29/2017 ALBUMIN 3.9 03/29/2017 BILITOT 0.5 03/29/2017 ALT 21 03/29/2017 PROT 6.6 03/29/2017 Imaging: Assessment/Plan: 51 y.o. female ??with breast CA to the left. ?Pt underwent bilateral breast reconstruction after mastectomy with SALVADOR flaps (04/26/17); ??complicated by intraoperative demise followed by Tissue Supervisor Fusing Room placement. Patient has a RIGHT breast insitu with large volume output. ??The drain became partially dislodged, IR placed a new drain on 04/30 via the existing tract. Patient presented to clinic yesterday with fevers, malaise, fatigue and was found to have a LEFT axillary fluid collection. IR aspirated 45 cc of clear serous fliud on 05/11 with trace amount of fluid remaining. Patient with increased axilla swelling and fluid collection on repeat US, IR consulted for drain placement. ?Labs to be performed day of procedure: none ?Medication to STOP: ??none ?Sedation: Fentanyl vs moderate sedation ?Planned access site: LEFT axilla ?Consent: Pending Becki Oscar MD 05/14/2017 * Johnathan Salgado MD - 05/13/2017 6:49 PM EDT Images from the original note were not included. Paged to bedside for increased axilla swelling, see picture below. Good cap refill. Tender at the lateral aspect of incision. Doing well otherwise. Discussed with Dr. Whiteside, will order left breast ultrasound for AM Lucina Pedersen MD P. [phone] Attending: Plan discussed and agree as documented. * Bernardo De La Garza - 05/13/2017 3:56 PM EDT Cardiothoracic Anesthesia Technician Encounter Note Patient Name: Wendy Sandoval : [id number] MR#: [id number] Admit Date: 05/10/2017 3:03 PM Hospital Day 3 days Narrative: Visited to introduce and assess acceptance of Cardiothoracic Anesthesia Technician services. Pt was awake, alert, oriented and in bed watching TV. Assessment: Patient coping positively with stresses of illness/hospitalization at this time. Pt says that she is feeling better and has supportive family care. Pt said that her is caring and children there. Pt asked for prayers and blessings. Intervention and Outcome: Provided emotional, spiritual support and encouraging presence. Cardiothoracic Anesthesia Technician services accepted.Conversation to build trusting relationship.Provided prayer.Provided pastoral presence.Provided spiritual guidance. Follow-up: yes Time in Direct Care:20 Mins Bernardo De La Garza 05/13/2017 * Johnathan Salgado MD - 05/13/2017 10:22 AM EDT PLASTIC SURGERY INPATIENT PROGRESS NOTE Attending: MALI LAKHANI Patient Location: [address] [place] [address] Hospital Admission Date: 05/10/2017 ID: Wendy Sandoval is a 51 y.o. female patient with PMH of JACQUELYN on CPAP, left breast CA, ER/ID+, HEr2-, HTN, HLD s/p bilateral mastectomy and failed SIEA, left axillary SLN excision and reconstruction with bilateral TE 04/26/2017. S: Doing well this morning with some resolution of pain. O: Patient Vitals for the past 8 hrs: BP Temp Temp src Resp SpO2 05/13/17 0831 (!) 147/95 36.8 ??C (98.2 ??F) Oral 16 96 % 05/13/17 0347 (!) 147/91 37.1 ??C (98.8 ??F) Oral 16 96 % Temp: [36.8 ??C (98.2 ??F)-37.2 ??C (99 ??F)] Resp: [16-18] BP: (131-155)/(80-103) Intake/Output Summary (Last 24 hours) at 05/13/17 1022 Last data filed at 05/13/17 0856 Gross per 24 hour Intake 811 ml Output 755 ml Net 56 ml General: well developed, well nourished, appearing in no acute distress, pleasant, cooperative, resting comfortably HEENT: atraumatic, normocephalic Respiratory: nonlabored, symmetric chest movement Cardiovascular: RRR Breasts: incisions healing well bilaterally, silvadene on to bilateral nipples, bra on, no erythema/edema; no recurrent fluid L axilla Abdomen: transverse abdominal incision healing well, small area at midline of dehiscence of approximatley 3.5cm, no surrounding erythema/edema, packing in place, no odor, no purulence, no active drainage, bilateral YG drains in with ss output Umbilicus: necrotic, with silvadene Extremities:warm/dry, well perfused with good capillary refill Skin: pink/warm/dry Labs: Last wbc, hgb, hct plt Recent Labs 05/13/17 0346 WBC 13.1* HGB 10.4* HCT 31.1* Last 3 Coags No results for input(s): PT, INR, PTT in the last 168 hours. Last Ca, Mg, Phos Recent Labs 05/10/17 1413 CALCIUM 8.6 Last 3 Lytes Recent Labs 05/10/17 1413 05/01/17 0339 04/30/17 0327 NA 141 142 145 K 3.4* 3.7 3.8 CL 100 102 106 CO2 25 27 26 BUN 20* 17 16 CREATININE 0.87 1.01 1.00 Last 3 wbc, hgb, hct plt Recent Labs 05/13/17 0346 05/10/17 1720 05/10/17 1413 WBC 13.1* 18.6* 19.8* HGB 10.4* 11.7 12.5 HCT 31.1* 35.3* 36.8 PLATELET 558* 567* 571* A/P: Wendy Sandoval is a 51 y.o. female patient s/p bilat mastectomy, left SNL excision, TE placement 04/26. F/u left axillary fluid culture, continue IS Prealbumin 46 (05/10), continue protein intake Continue abdomen packing BID; will place wound vac prior to d/c Monitor axilla for fluid reaccumulation Continue bilateral drain care and output monitoring Continue clindamycin Continue silvadene to nipples and umbilicus Plan to d/c home with vac Mon Future Appointments Date Time Provider Department Center 05/14/2017 9:00 AM NURSE, PLASTIC SURGERY [facility] 05/14/2017 10:00 AM Jolie Menendez MD [facility] 05/14/2017 3:30 PM Gustavo Mota MD [facility] 05/21/2017 8:[address] [facility] 05/21/2017 9:00 AM Emily Choi MD [facility] 05/25/2017 10:30 AM [facility] IR ROOM 4 IR [facility] Kaveh Whiteside MD Plastic Surgery, PGY-7 Attending: Plan discussed and agree as documented. * Johnathan Salgado MD - 05/12/2017 10:01 AM EDT PLASTIC SURGERY INPATIENT PROGRESS NOTE Attending: MALI LAKHANI Patient Location: [facility] Admission Date: 05/10/2017 ID: Wendy Sandoval is a 51 y.o. female patient with PMH of JACQUELYN on CPAP, left breast CA, ER/ID+, HEr2-, HTN, HLD s/p bilateral mastectomy and failed SIEA, left axillary SLN excision and reconstruction with bilateral TE 04/26/2017. S: Fluid aspirated by IR L axilla yesterday. Doing well this morning with some resolution of pain. O: Patient Vitals for the past 8 hrs: BP Temp Temp src Resp SpO2 05/12/17 0731 142/87 37 ??C (98.6 ??F) Oral 15 96 % 05/12/17 0355 146/86 37 ??C (98.6 ??F) Oral 16 96 % Temp: [36.2 ??C (97.2 ??F)-37.4 ??C (99.3 ??F)] Heart Rate: [72-84] Resp: [11-26] BP: (128-172)/(76-98) Intake/Output Summary (Last 24 hours) at 05/12/17 1001 Last data filed at 05/12/17 0900 Gross per 24 hour Intake 960 ml Output 880 ml Net 80 ml Drains: Left abdomen 90cc Right abdomen 30cc Axilla aspirate 45cc General: well developed, well nourished, appearing in no acute distress, pleasant, cooperative, resting comfortably HEENT: atraumatic, normocephalic Respiratory: nonlabored, symmetric chest movement Cardiovascular: RRR Breasts: incisions healing well bilaterally, silvadene on to bilateral nipples, bra on, no erythema/edema; no recurrent fluid L axilla Abdomen: transverse abdominal incision healing well, small area at midline of dehiscence of approximatley 3.5cm, no surrounding erythema/edema, packing in place, no odor, no purulence, no active drainage, bilateral YG drains in with ss output Umbilicus: necrotic, with silvadene Extremities:warm/dry, well perfused with good capillary refill Skin: pink/warm/dry Labs: Last wbc, hgb, hct plt Recent Labs 05/10/17 1720 WBC 18.6* HGB 11.7 HCT 35.3* Last 3 Coags No results for input(s): PT, INR, PTT in the last 168 hours. Last Ca, Mg, Phos Recent Labs 05/10/17 1413 CALCIUM 8.6 Last 3 Lytes Recent Labs 05/10/17 1413 05/01/17 0339 04/30/17 0327 NA 141 142 145 K 3.4* 3.7 3.8 CL 100 102 106 CO2 25 27 26 BUN 20* 17 16 CREATININE 0.87 1.01 1.00 Last 3 wbc, hgb, hct plt Recent Labs 05/10/17 1720 05/10/17 1413 05/01/17 0339 WBC 18.6* 19.8* 17.2* HGB 11.7 12.5 12.2 HCT 35.3* 36.8 36.4 PLATELET 567* 571* 402* Prealbumin: Cultures: Pathology: Imaging: A/P: Wendy Sandoval is a 51 y.o. female patient s/p bilat mastectomy, left SNL excision, TE placement 04/26. F/u left axillary fluid culture, continue IS Prealbumin 46 (05/10), continue protein intake Continue abdomen packing BID; will place wound vac prior to d/c Monitor axilla for fluid reaccumulation Continue bilateral drain care and output monitoring Regular diet after IR procedure Continue clindamycin Continue silvadene to nipples and umbilicus Future Appointments Date Time Provider Department Center 05/14/2017 9:00 AM NURSE, PLASTIC SURGERY [facility] 05/14/2017 10:00 AM Jolie Menendez MD [facility] 05/14/2017 3:30 PM Gustavo Mota MD [facility] 05/21/2017 8:30 AM Rad Nurse, [facility] 05/21/2017 9:00 AM Emily Choi MD [facility] 05/25/2017 10:30 AM [facility] IR ROOM 4 IR [facility] Kaveh Whiteside MD Plastic Surgery, PGY-7 Pt seen and examined with Dr Whiteside. I agree with the plan as outlined. * Abby King, RD - 05/11/2017 3:40 PM EDT Nutrition Initial Note Wendy Sandoval is a 51 y.o. female Reason for intervention: Diagnosis Nutrition Recommendations: Continue Regular diet and provide patient preferences. Monitor and encourage PO intake. Monitor weights. Patient Active Problem List Diagnosis Code ??? Hypertension I10 ??? Depression F32.9 ??? Obstructive sleep apnea (adult) (pediatric) G47.33 ??? OA (osteoarthritis) M19.90 ??? Overweight(278.02) E66.3 ??? Hyperparathyroidism E21.3 ??? Malignant neoplasm of upper-outer quadrant of left breast in female, estrogen receptor dsebufcrZ83.412, Z17.0 ??? Status post bilateral breast reconstruction Z98.890 ??? Surgery follow-up Z09 ??? Abdominal wound dehiscence T81.30XA Past Medical History: Diagnosis Date ??? Fibrocystic breast determined by biopsy ??? Hyperlipidemia ??? Hypertension ??? Impaired fasting glucose ??? Malignant neoplasm of upper-outer quadrant of left breast in female, estrogen receptor positive03/31/2017 ??? Obstructive sleep apnea on CPAP ??? Proteinuria Active Orders Diet Regular diet Frequency: Effective Now Number of Occurrences: Until Specified Admit Weight: 72.58 kg Estimated body mass index is 31.25 kg/(m^2) as calculated from the following: Height as of this encounter: 152.4 cm (5'). Weight as of this encounter: 72.6 kg (160 lb). [place] Body Weight (IBW): [place] body weight: 45.5 kg (100 lb 4.9 oz) Adjusted ideal body weight: 56.3 kg (124 lb 3 oz) Estimated needs: Calories: 1460 Protein: 88 grams Today's medications: Lipitor, colace, ferrous sulfate, bacid, KCL Lab Results Component Value Date NA 141 05/10/2017 K 3.4 (L) 05/10/2017 CL 100 05/10/2017 CO2 25 05/10/2017 BUN 20 (H) 05/10/2017 CREATININE 0.87 05/10/2017 GLUCOSE 105 05/10/2017 MAGNESIUM 0.78 05/01/2017 CALCIUM 8.6 05/10/2017 PHOS 6.3 (H) 04/27/2017 AST 12 03/29/2017 ALT 21 03/29/2017 ALKPHOS 79 03/29/2017 BILITOT 0.5 03/29/2017 Last Bowel Movement: 05/10/17 Assessment: Pt seen for admission diagnosis of abdominal wound dehiscence. Pt was NPO for IR procedure at midnight last night until 1245 today. She had a chicken caesar salad for lunch and reports good appetite and PO intake at this time. She reports that appetite was fair prior to admission d/t not feeling well, but she has made sure to keep getting in adequate protein intake. Pt reports that the antibiotics give her a bad taste in her mouth, but her food still tastes ok. Pt reports she is familiar with protein sources and has no difficulty getting these foods into her diet. Pt denies any questions or concerns at this time. LENORA LEWIS * Alma Castillo PA - 05/11/2017 11:06 AM EDT PLASTIC SURGERY INPATIENT PROGRESS NOTE Attending: MALI LAKHANI Patient Location: [address] [place] [address] Hospital Admission Date: 05/10/2017 ID: Wendy Sandoval is a 51 y.o. female patient with PMH of JACQUELYN on CPAP, left breast CA, ER/ID+, HEr2-, HTN, HLD s/p bilateral mastectomy and failed SIEA, left axillary SLN excision and reconstruction with bilateral TE 04/26/2017. S: No acute events overnight. No complaints. Pain controlled. O: Patient Vitals for the past 8 hrs: BP Temp Temp src Resp SpO2 05/11/17 1012 (!) 134/98 37.4 ??C (99.3 ??F) Temporal 16 99 % 05/11/17 0833 - - - 16 - 05/11/17 0420 139/90 36.8 ??C (98.2 ??F) Oral 16 97 % Temp: [36.8 ??C (98.2 ??F)-38 ??C (100.4 ??F)] Heart Rate: [88] Resp: [16-17] BP: (134-155)/(90-107) Intake/Output Summary (Last 24 hours) at 05/11/17 1107 Last data filed at 05/11/17 0420 Gross per 24 hour Intake 0 ml Output 520 ml Net -520 ml Drains: Left abdomen 60cc Right abdomen 60cc General: well developed, well nourished, appearing in no acute distress, pleasant, cooperative, resting comfortably HEENT: atraumatic, normocephalic Respiratory: nonlabored, symmetric chest movement Cardiovascular: RRR Breasts: incisions healing well bilaterally, silvadene on to bilateral nipples, bra on, no erythema/edema Abdomen: transverse abdominal incision healing well, small area at midline of dehiscence of approximatley 3.5cm, no surrounding erythema/edema, packing in place, no odor, no purulence, no active drainage, bilateral YG drains in with ss output Umbilicus: necrotic, with silvadene Extremities:warm/dry, well perfused with good capillary refill Skin: pink/warm/dry Labs: Last wbc, hgb, hct plt Recent Labs 05/10/17 1720 WBC 18.6* HGB 11.7 HCT 35.3* Last 3 Coags No results for input(s): PT, INR, PTT in the last 168 hours. Last Ca, Mg, Phos Recent Labs 05/10/17 1413 CALCIUM 8.6 Last 3 Lytes Recent Labs 05/10/17 1413 05/01/17 0339 04/30/17 0327 NA 141 142 145 K 3.4* 3.7 3.8 CL 100 102 106 CO2 25 27 26 BUN 20* 17 16 CREATININE 0.87 1.01 1.00 Last 3 wbc, hgb, hct plt Recent Labs 05/10/17 1720 05/10/17 1413 05/01/17 0339 WBC 18.6* 19.8* 17.2* HGB 11.7 12.5 12.2 HCT 35.3* 36.8 36.4 PLATELET 567* 571* 402* Prealbumin: Cultures: Pathology: Imaging: A/P: Wendy Sandoval is a 51 y.o. female patient s/p bilat mastectomy, left SNL excision, TE placement 04/26. IR drainage of left axillary fluid collection, culture, drain placement per IR Denies urinary symptoms, urine culture ordered given high WBC Denies respiratory symptoms this morning, continue IS Prealbumin 46 (05/10), continue protein intake Continue abdomen packing BID Continue bilateral drain care and output monitoring Regular diet after IR procedure Continue clindamycin Continue silvadene to nipples and umbilicus PRS will continue to follow Future Appointments Date Time Provider Department Center 05/14/2017 9:00 AM NURSE, PLASTIC SURGERY [facility] 05/14/2017 10:00 AM Jolie Menendez MD [facility] 05/14/2017 3:30 PM Gustavo Mota MD [facility] 05/21/2017 8:[address] [facility] 05/21/2017 9:00 AM Emily Choi MD [facility] 05/25/2017 10:30 AM [facility] IR ROOM 4 IR [facility] Alma Castillo PA-C Plastic Surgery Pager [phone] * Libertad Mcfarlane RN - 05/11/2017 11:01 AM EDT 1101 To procedure room 3 via stretcher. Onto table in supine position. All monitors, O2, safety strap in place. Med's per protocol. * Christy Keenan MD - 05/11/2017 10:41 AM EDT PRE-SEDATION ASSESSMENT / FOCUSED H&P Addendum: 51 yo female with left breast ca w/ left tissue newspaper manager placement presenting with a left axillary fluid collection. No interval changes. Risks (including hemorrhage, infection, allergic reaction, occlusion, respiratory depression), and benefits discussed and patient consented to the procedure. I have reviewed with the patient, their prior experience with sedation. The patient has been NPO per protocol I have reviewed the sedation plan for this patient???s case and concur that Fentanyl and Versed areappropriate choices for sedation and will be provided per the protocoled order set for this case Physical Exam Heart: RRR Lungs: clear ASA Classification: ASA 3 - Patient with moderate systemic disease with functional limitations Mallampati Classification: II (soft palate, uvula, fauces visible) Christy Keenan Balance Engineer PGY-2 Pager [phone] * Libertad Mcfarlane RN - 05/11/2017 7:44 AM EDT [facility] NUR[facility] DATABASE Name: WENDY SANDOVAL Date of : 1965 AGE 51 y.o. [address]: [address] [place] [id number] (home) [phone] (work) Mobile: Telephone Information: Referring Provider: No ref. provider found REASON FOR VISIT: Order Questions Question Answer Comment Where will study be performed? [facility] Is the patient on anticoagulant / anitplatelet therapy ? No Reason for exam and clinical history: Left axilla fluid collection Exam/Procedure requested: aspirate fluid collection and culture Is the patient ? No (Assessment/plan from provider's note, bottom of workup) Copy/paste from provider's note (for all CT's) Assessment/Plan: 51 y.o. female with breast CA to the left. ?Pt underwent bilateral breast reconstruction after mastectomy with SALVADOR flaps (04/26/17); ??complicated by intraoperative demise followedby Tissue Supervisor Fusing Room placement. Patient has a RIGHT breast insitu with large volume output. ??The drain became partially dislodged, IR placed a new drain on 04/30 via the existing. Patient now has an axillary fluid collection. IR consulted for aspiration. ?? Of note, patient also due for drain check of breast drain. ?Labs to be performed day of procedure: none ?Medication to STOP: ??none ?Sedation: Fentanyl vs moderate sedation ?Planned access site: Left axilla ?Consent: Pending Anticoagulant/antiplatelet/herbal med. stopped on per MD order. Allergies Allergen Reactions ??? Pcn [Penicillins] ??? Zoloft [Sertraline] PSORIASIS FLARE Pertinent PMH: Patient Active Problem List Diagnosis Code ??? Hypertension I10 ??? Depression F32.9 ??? Obstructive sleep apnea (adult) (pediatric) G47.33 ??? OA (osteoarthritis) M19.90 ??? Overweight(278.02) E66.3 ??? Hyperparathyroidism E21.3 ??? Malignant neoplasm of upper-outer quadrant of left breast in female, estrogen receptor gvssuyenT67.412, Z17.0 ??? Status post bilateral breast reconstruction Z98.890 ??? Surgery follow-up Z09 ??? Abdominal wound dehiscence T81.30XA Pertinent PSH: Past Surgical History: Procedure Laterality Date ??? BREAST BIOPSY Right 11/01 ??? SECTION x 2 ??? HAND SURGERY Right ??? PRG EMG, LARYNX N/A 11/02/2015 FACIAL NERVE MONITORING, SETUP LARYNGEAL performed by Valentina Lucas MD at [facility] OR ??? PRO BREAST RECONSTRUC W FREE FLAP Bilateral 04/26/2017 @BREAST RECONSTRUCTION W/ FREE FLAP, SUSAN (WRVU 42.58) performed by Mali Lakhani [facility] ??? PRO BREAST RECONSTRUC W TISS EXPANDR Bilateral 04/26/2017 BREAST RECONSTRUCTION, IMMEDIATE OR DELAYED, W/ TISSUE BEAUTY OPERATOR APPRENTICE, INCLUDING SUBSEQUENT EXPANSION (WRVU 18.5) performed by Mali Lakhani MD at [facility] OR ??? PRO EXPLORE PARATHYROID GLANDS N/A 11/02/2015 PARATHYROIDECTOMY OR EXPLORATION OF PARATHYROID(S) performed by Valentina Lucas MD at [facility] OR ? ? PRO FULL THICK GRFT TRUNK <20 SQCM Bilateral 04/26/2017 FTSG, FREE, DIR CLOSE DONOR SITE, TRUNK, 20 SQ CM OR LESS (WRVU 9.15) performed by Mali Lakhani MD at [facility] OR ??? PRO MASTECTOMY, SIMPLE, COMPLETE Bilateral 04/26/2017 MASTECTOMY, SIMPLE, COMPLETE-SUSAN (WRVU 15.85) performed by Jolie Menendez MD at [facility] OR ??? PRO PARTIAL REMOVAL OF RIB Bilateral 04/26/2017 EXCISION OF RIB, PARTIAL (WRVU 7.26) performed by Mali Lakhani MD at [facility] OR ??? PRO REMOVE ARMPITS LYMPH NODES COMPLT Left 04/26/2017 LYMPHADENECTOMY, AXILLARY, COMPLETE (WRVU 13.87) performed by Jolie Menendez MD at [facility] OR ??? PRO THYMECTOMY, TRANSCERVICAL N/A 11/02/2015 THYMECTOMY, TRANSCERVICAL APPROACH performed by Valentina Lucas MD at [facility] OR ??? SHOULDER SURGERY Left ??? UMBILICAL HERNIA REPAIR ?? Date/Procedure ?Med's given/comments 04/30/2017 Right breast drain exchange and repositioning, 10Fr. Versed 2mg IV, Fentanyl 100mcg IV. Tolerated well. 05/11/2017 Left axillary aspiration/ 45 ml Clear yellow Versed 3 mg IV, Fentanyl 150 mcg IV ? Laboratory Results: Lab Results Component Value Date CREATININE 0.87 05/10/2017 Lab Results Component Value Date K 3.4 (L) 05/10/2017 Lab Results Component Value Date PLATELET 567 (H) 05/10/2017 Medications: Prior to Admission medications Medication Sig Start Date End Date Taking? Authorizing Provider cephalexin (KEFLEX) 500 mg Capsule Take 1 capsule by mouth 4 times daily for 7 days. 05/04/17 05/11/17 Jolene Azevedo APRN silver sulfADIAZINE (SILVADENE) 1 % Cream Apply topically 2 times daily for 20 days. To umbilicus, thick layer, twice a day. Completely wipe off before reapplying. 05/04/17 05/24/17 Jolene Azevedo APRN Lactobacillus (BACID) 0.5 mg (100 million cell) Tablet Take 1 tablet by mouth daily. 05/01/17 Alma Castillo PA ondansetron (ZOFRAN) 4 mg Tablet Take 1 tablet by mouth every 8 hours as needed for Nausea. Patient not taking: Reported on 05/04/2017 05/01/17 Alma Castillo PA valsartan-hydrochlorothiazide (DIOVAN-HCT) 160-12.5 [...] 2 times daily. 10/31/12 PROVIDER, HISTORICAL * Becki Oscar MD - 05/11/2017 7:00 AM EDT Images from the original note were not included. INTERVENTIONAL RADIOLOGY FOCUSED H&P and PRE-PROCEDURE NOTE: PCP: Trinh Coates MD Referring Physician: No ref. provider found Planned Procedure: Aspiration of left axillary fluid collection Procedure Indication: Fluid collection in the left axilla ?? Presenting Diagnosis/ Complaint: Wendy Sandoval is a 51 y.o. female with breast CA to the left. Pt underwent bilateral breast reconstruction after mastectomy with SALVADOR flaps (04/26/17); complicated by intraoperative demise followed by Tissue Supervisor Fusing Room placement. Patient has a RIGHT breast insitu with large volume output. The drain became partially dislodged, IR placed a new drain on 04/30 via the existing tract. Patient presented to clinic yesterday with fevers, malaise, fatigue and was found tohave a LEFT axillary fluid collection. IR consulted for aspiration. Of note, patient also due for drain check of RIGHT breast drain. Right drain put out 60 cc overnight. Past Medical/Surgical History: Patient Active Problem List Diagnosis Code ??? Hypertension I10 ??? Depression F32.9 ??? Obstructive sleep apnea (adult) (pediatric) G47.33 ??? OA (osteoarthritis) M19.90 ??? Overweight(278.02) E66.3 ??? Hyperparathyroidism E21.3 ??? Malignant neoplasm of upper-outer quadrant of left breast in female, estrogen receptor hgokhghqV57.412, Z17.0 ??? Status post bilateral breast reconstruction [...] LARYNGEAL performed by Valentina Lucas MD at [facility] OR ??? PRO BREAST RECONSTRUC W FREE FLAP Bilateral 04/26/2017 @BREAST RECONSTRUCTION W/ FREE FLAP, SUSAN (WRVU 42.58) performed by Mali [facility] ??? PRO BREAST RECONSTRUC W TISS EXPANDR Bilateral 04/26/2017 BREAST RECONSTRUCTION, IMMEDIATE OR DELAYED, W/ TISSUE BEAUTY OPERATOR APPRENTICE, INCLUDING SUBSEQUENT EXPANSION (WRVU 18.5) performed by Mali Lakhani MD at [facility] OR ??? PRO EXPLORE PARATHYROID GLANDS N/A 11/02/2015 PARATHYROIDECTOMY OR EXPLORATION OF PARATHYROID(S) performed by Valentina Lucas MD at [facility] OR ? ? PRO FULL THICK GRFT TRUNK <20 SQCM Bilateral 04/26/2017 FTSG, FREE, DIR CLOSE DONOR SITE, TRUNK, 20 SQ CM OR LESS (WRVU 9.15) performed by Mali Lakhani MD at [facility] OR ??? PRO MASTECTOMY, SIMPLE, COMPLETE Bilateral 04/26/2017 MASTECTOMY, SIMPLE, COMPLETE-SUSAN (WRVU 15.85) performed by Jolie Menendez MD at [facility] OR ??? PRO PARTIAL REMOVAL OF RIB Bilateral 04/26/2017 EXCISION OF RIB, PARTIAL (WRVU 7.26) performed by Mali Lakhani MD at [facility] OR ??? PRO REMOVE ARMPITS LYMPH NODES COMPLT Left 04/26/2017 LYMPHADENECTOMY, AXILLARY, COMPLETE (WRVU 13.87) performed by Jolie Menendez MD at [facility] OR ??? PRO THYMECTOMY, TRANSCERVICAL N/A 11/02/2015 THYMECTOMY, TRANSCERVICAL APPROACH performed by Valentina Lucas MD at [facility] OR ??? SHOULDER SURGERY Left ??? UMBILICAL HERNIA REPAIR Medications: Current Facility-Administered Medications on File Prior to Encounter Medication Dose Route Frequency Provider Last Rate Last Dose ??? [COMPLETED] iohexol (OMNIPAQUE) 350 mg/mL solution 0-200 mL 0-200 mL Intravenous Once PRN Thang Maldonado MD 53 mL at 05/10/17 1305 Current Outpatient Prescriptions on File Prior to Encounter Medication Sig Dispense Refill ??? cephalexin (KEFLEX) 500 mg Capsule Take 1 capsule by mouth 4 times daily for 7 days. 40 capsule0 ??? silver sulfADIAZINE (SILVADENE) 1 % Cream Apply topically 2 times daily for 20 days. To umbilicus, thick layer, twice a day. Completely wipe off before reapplying. 50 g 0 ??? Lactobacillus (BACID) 0.5 mg (100 million cell) Tablet Take 1 tablet by mouth daily. 30 tablet 0 ??? ondansetron (ZOFRAN) 4 mg Tablet Take 1 tablet by mouth every 8 hours as needed for Nausea. (Patient not taking: Reported on 05/04/2017) 6 tablet 0 ??? valsartan-hydrochlorothiazide (DIOVAN-HCT) 160-12.5 mg Tablet Take 1 tablet by mouth daily. ??? levothyroxine (SYNTHROID) 112 mcg Tablet Take 1 tablet by mouth daily. 0 ??? atorvastatin (LIPITOR) 20 mg Tablet Take 1 tablet by mouth daily. 0 ??? triamcinolone (ARISTOCORT) 0.5 % Cream Apply topically 3 times daily. ??? acetaminophen (TYLENOL) 325 mg Tablet Take 2 tablets by mouth every 4 hours as needed for Pain. ??? DILTiazem (CARDIZEM CD) 240 mg Capsule, Sust. Release 24 hr Take 1 capsule by mouth daily. ??? norethindrone (AYGESTIN) 5 mg Tablet Take 1 tablet by mouth daily. ??? ferrous gluconate 324 mg (37.5 mg iron) Tablet Take 324 mg by mouth daily. ??? clobetasol (TEMOVATE) 0.05 % Cream Apply to affected areas on knees, elbows and hands twice daily for two week cycles as needed. 60 g 3 ??? fluoxetine (PROZAC) 40 mg capsule daily. ??? KLOR-CON M20 20 mEq extended release tablet 2 times daily. Allergies: Pcn [penicillins] and Zoloft [sertraline] Social [...] his 60's ??? Ovarian Cancer Neg Hx Physical Examination: pending Labs: Lab Results Component Value Date WBC 18.6 (H) 05/10/2017 HCT 35.3 (L) 05/10/2017 PLATELET 567 (H) 05/10/2017 BUN 20 (H) 05/10/2017 CREATININE 0.87 05/10/2017 ALKPHOS 79 03/29/2017 AST 12 03/29/2017 ALBUMIN 3.9 03/29/2017 BILITOT 0.5 03/29/2017 ALT 21 03/29/2017 PROT 6.6 03/29/2017 Imaging: ? ASA: Pending (to be assessed in angio the day of procedure) Mallampati Class: Pending (to be assessed in angio the day of procedure) Assessment/Plan: 51 y.o. female with breast CA to the left. Pt underwent bilateral breast reconstruction after mastectomy with SALVADOR flaps (04/26/17); complicated by intraoperative demise followed by Tissue Supervisor Fusing Room placement. Patient has a RIGHT breast insitu with large volume output. The drain became partially dislodged, IR placed a new drain on 04/30 via the existing tract. Patient presented to clinic yesterday with fevers, malaise, fatigue and was found to have a LEFT axillary fluid collection.IR consulted for aspiration. Of note, patient also due for drain check of breast drain. Labs to be performed day of procedure: none Medication to STOP: none Sedation: Fentanyl vs moderate sedation Planned access site: LEFT axilla Consent: Pending Becki Oscar MD 05/11/2017 * Wanda Terry RN - 05/10/2017 4:40 PM EDT Pt arrived to [facility] from [facility]. Patient is alert and oriented. BP 155/107, MD notified. All other vital signs stable. No complaints of chest pain or trouble breathing. No nausea or vomiting.Dressing to umbilicus c/d/i, dressing to panis fully saturated with serous drainage. See flowsheet for further assessments. Pt oriented to room and call [place]. Call [place] within reach. Will continue tomonitor. documented in this encounter H&P Notes * Alma Castillo PA - 05/10/2017 3:10 PM EDT COMPLETE HISTORY AND PHYSICAL for ADMISSION, OBSERVATION OR PROCEDURE Patient Name: Wendy Sandoval Age: 51 y.o. Patient Location: [address] [place] [address] Admission Date: 05/10/2017 3:03 PM Chief Complaint: abdominal pain History of Present Illness: 51yo F pt with history of JACQUELYN on CPAP, left breast CA ER/ID+, HEr2-, HTN, HLD s/p bilateral mastectomy with left axillary SLN excision by Dr Menendez and attempted reconstruction with bilateral SIEA flaps, then bilateral TE placement with FNG by Dr. Lakhani 04/26/2017. Pt reports today to clinic for drain removal with symptoms of fevers (up to 100F), malaise, fatigue, decrease in appetite, abdominal pain, lower back pain. Pt reports that she has been on Keflex since last Sunday and has not felt better. Approximately two days ago she developed hardening of her abdomen and pain that she also feels in her lower back. Today in clinic, she complained of SOB for which CT of chest was ordered and is negative to PE. But incidentally it was found that she has a fluid collection in her left axilla. Labs reveal a high white blood count. Pt denies chills, nausea, vomiting, dysuria, erythema, edema, drainage. Past Medical History: Diagnosis Date ??? Fibrocystic [...] LARYNGEAL performed by Valentina Lucas MD at [facility] OR ??? PRO BREAST RECONSTRUC W FREE FLAP Bilateral 04/26/2017 @BREAST RECONSTRUCTION W/ FREE FLAP, SUSAN (WRVU 42.58) [facility] ??? PRO BREAST RECONSTRUC W TISS EXPANDR Bilateral 04/26/2017 BREAST RECONSTRUCTION, IMMEDIATE OR DELAYED, W/ TISSUE BEAUTY OPERATOR APPRENTICE, INCLUDING SUBSEQUENT EXPANSION (WRVU 18.5) performed by Mali Lakhani MD at [facility] OR ??? PRO EXPLORE PARATHYROID GLANDS N/A 11/02/2015 PARATHYROIDECTOMY OR EXPLORATION OF PARATHYROID(S) performed by Valentina Lucas MD at [facility] OR ? ? PRO FULL THICK GRFT TRUNK <20 SQCM Bilateral 04/26/2017 FTSG, FREE, DIR CLOSE DONOR SITE, TRUNK, 20 SQ CM OR LESS (WRVU 9.15) performed by Mali Lakhani MD at [facility] OR ??? PRO MASTECTOMY, SIMPLE, COMPLETE Bilateral 04/26/2017 MASTECTOMY, SIMPLE, COMPLETE-SUSAN (WRVU 15.85) performed by Jolie Menendez MD at [facility] OR ??? PRO PARTIAL REMOVAL OF RIB Bilateral 04/26/2017 EXCISION OF RIB, PARTIAL (WRVU 7.26) performed by Mali Lakhani MD at [facility] OR ??? PRO REMOVE ARMPITS LYMPH NODES COMPLT Left 04/26/2017 LYMPHADENECTOMY, AXILLARY, COMPLETE (WRVU 13.87) performed by Jolie Menendez MD at [facility] OR ??? PRO THYMECTOMY, TRANSCERVICAL N/A 11/02/2015 THYMECTOMY, TRANSCERVICAL APPROACH performed by Valentina Lucas MD at [facility] OR ??? SHOULDER SURGERY Left ??? UMBILICAL HERNIA REPAIR Social History Social History ??? Marital status: [...] ??? Not on file Social History Narrative Family history non contributory to cc Current Facility-Administered Medications on File Prior to Encounter Medication Dose Route Frequency Provider Last Rate Last Dose ??? [COMPLETED] iohexol (OMNIPAQUE) 350 mg/mL solution 0-200 mL 0-200 mL Intravenous Once PRN Thang Maldonado MD 53 mL at 05/10/17 1305 Current Outpatient Prescriptions on File Prior to Encounter Medication Sig Dispense Refill ??? cephalexin (KEFLEX) 500 mg Capsule Take 1 capsule by mouth 4 times daily for 7 days. 40 capsule0 ??? silver sulfADIAZINE (SILVADENE) 1 % Cream Apply topically 2 times daily for 20 days. To umbilicus, thick layer, twice a day. Completely wipe off before reapplying. 50 g 0 ??? [DISCONTINUED] oxyCODONE (ROXICODONE) 5 mg Tablet Take 1 tablet by mouth every 4 hours as needed for Pain (ONLY for pain that is not controlled on tylenol and NSAIDs). 10 tablet 0 ??? Lactobacillus (BACID) 0.5 mg (100 million cell) Tablet Take 1 tablet by mouth daily. 30 tablet 0 ??? ondansetron (ZOFRAN) 4 mg Tablet Take 1 tablet by mouth every 8 hours as needed for Nausea. (Patient not taking: Reported on 05/04/2017) 6 tablet 0 ??? valsartan-hydrochlorothiazide (DIOVAN-HCT) 160-12.5 mg Tablet Take 1 tablet by mouth daily. ??? levothyroxine (SYNTHROID) 112 mcg Tablet Take 1 tablet by mouth daily. 0 ??? atorvastatin (LIPITOR) 20 mg Tablet Take 1 tablet by mouth daily. 0 ??? triamcinolone (ARISTOCORT) 0.5 % Cream Apply topically 3 times daily. ??? acetaminophen (TYLENOL) 325 mg Tablet Take 2 tablets by mouth every 4 hours as needed for Pain. ??? DILTiazem (CARDIZEM CD) 240 mg Capsule, Sust. Release 24 hr Take 1 capsule by mouth daily. ??? norethindrone (AYGESTIN) 5 mg Tablet Take 1 tablet by mouth daily. ??? ferrous gluconate 324 mg (37.5 mg iron) Tablet Take 324 mg by mouth daily. ??? clobetasol (TEMOVATE) 0.05 % Cream Apply to affected areas on knees, elbows and hands twice daily for two week cycles as needed. 60 g 3 ??? fluoxetine (PROZAC) 40 mg capsule daily. ??? KLOR-CON M20 20 mEq extended release tablet 2 times daily. Allergies Allergen Reactions ??? Pcn [Penicillins] ??? Zoloft [Sertraline] PSORIASIS FLARE Review of Systems: Per HPI, all others negative Constitutional: +fever, denies chills, reports decrease in appetite Skin: denies any changes in appearance, color, texture of surgical sites Resp: denies cough, sputum production, wheezing, pleurisy CV: denies chest pain, palpitations, edema, dyspnea, peripheral edema GI: +abd pain, denies diarrhea, constipation, nausea, vomiting : denies dysuria PV: denies past DVT, claudication MS: denies joint pain, swelling, erythema, muscle weakness Neuro: denies any change in motor function/sensation Heme/Lymph: denies easy bruising, bleeding tendencies Endo: denies heat or cold intolerance,+ fatigue Physical Exam: GENERAL: well developed, well nourished, appears stated age and in no acute distress, resting comfortably in exam chair, alert and oriented, daughter at bedside HEENT: normocephalic, atraumatic, no facial asymmetries LUNGS: symmetrical thorax, A/P to lateral ratio 1:2, no rashes, deformities, intercostal retractions or accessory muscle use noted on inspection BREASTS: symmetrical, incisions healing well, prolene sutures in bilaterally, bilateral NAC with silvadene, bra on, no erythema or edema COR: No peripheral edema. ABD: transverse abdominal incision healing well, small area of about 3.5cm was opened in clinic, packing in, draining clear fluid, bilateral YG drains removed in clinic today, very minimal erythema surrounding open wound marked with green marker, no purulence, no edema, no pain with palpation, no palpable fluid pockets, umbilicus with dark discoloration with overlying silvadene EXTREMITIES: No clubbing/cyanosis, capillary refill <2sec b/l, without discoloration/erythema/edema/coldness or young deformities NEUROLOGIC: Alert and oriented to person/place/time, speech fluent without dysarthria Labs: 05/10: Results for WENDY SANDOVAL ( ) as of 05/10/2017 15:13 Ref. Range 05/10/2017 14:13 WBC Latest Ref Range: 4.0 - 9.5 x10(3)/mcL 19.8 (H) RBC Latest Ref Range: 4.00 - 5.21 x10(6)/mcL 3.93 (L) Hemoglobin Latest Ref Range: 11.7 - 15.5 gm/dL 12.5 Hematocrit Latest Ref Range: 35.7 - 45.8 % 36.8 MCV Latest Ref Range: 82.6 - 94.4 fL 93.6 MCH Latest Ref Range: 27.1 - 32.0 pg 31.8 MCHC Latest Ref Range: 31.7 - 35.0 gm/dL 34.0 RDWSD Latest Ref Range: 37.0 - 46.0 fL 46.3 (H) RDWCV Latest Ref Range: 11.5 - 14.1 % 13.5 Platelets Latest Ref Range: 145 - 357 x10(3)/mcL 571 (H) MPV Latest Ref Range: 7.6 - 12.9 fL 8.3 nRBC % Auto Latest Units: % 0.0 nRBC Abs Auto Latest Ref Range: 0.000 - 0.000 x10(3)/mcL 0.000 Neutr Abs (ANC) Latest Ref Range: 1.70 - 6.10 x10(3)/mcL 14.37 (H) Neutrophils % Latest Units: % 72.4 Immature Gran % Latest Units: % 1.40 Lymphocytes % Latest Units: % 13.4 Monocytes % Latest Units: % 7.8 Eosinophils % Latest Units: % 3.6 Basophils % Latest Units: % 1.4 Nova Gran Abs Latest Ref Range: 0.00 - 0.04 x10(3)/mcL 0.27 (H) Lymphocytes Abs Latest Ref Range: 0.9 - 3.2 x10(3)/mcL 2.7 Monocyte Abs Latest Ref Range: 0.3 - 0.9 x10(3)/mcL 1.5 (H) Eosinophils Abs Latest Ref Range: 0.0 - 0.4 x10(3)/mcL 0.7 (H) Basophils Abs Latest Ref Range: 0.0 - 0.1 x10(3)/mcL 0.3 (H) Plat Estimate Unknown Increased RBC Morphology Unknown Normal Micro: none Radiology: CT chest 05/10: IMPRESSION 1. Limited study secondary to suboptimal timing of contrast bolus and respiratory motion. No large central pulmonary embolus. No CT evidence of right heart strain. ?? 2. Postoperative changes status post bilateral breast reconstruction with parasternal soft tissue thickening corresponding to sternal lungs or hematomas. ?? 3. 6.0 x 2.8 x 6.6 cm collection in the left axilla surrounded by some postsurgical change. This is likely a postsurgical collection, the sterility of which cannot be determined by CT appearance alone. Correlate with clinical and laboratory signs of infection/inflammation. Assessment: Wendy Sandoval is a 51 y.o. female patient Plan: - SOB, continue monitoring, CT for PE negative - Continue silvadene BID to umbilicus and bilateral NAC -Tylenol as needed for pain - Regular diet now, NPO at midnight - IR drain placement for left axillary fluid collection - f-u PAB, possible nutrition consult, protein shakes - IV ancef - continue abdominal binder - Disposition: continue in patient status Future Appointments Date Time Provider Department Center 05/14/2017 9:00 AM NURSE, PLASTIC SURGERY [facility] 05/14/2017 10:00 AM Jolie Menendez MD [facility] 05/14/2017 2:00 PM [facility] IR ROOM 3 [facility] 05/14/2017 3:30 PM Gustavo Mota MD [facility] Hem Onc [facility] 05/21/2017 8:30 AM Rad Nurse, [facility] 05/21/2017 9:00 AM Emily Choi MD [facility] lAma Castillo PA-C Plastic Surgery Pager [phone] documented in this encounter Miscellaneous Notes * Plan of Care - Kristal Alberto RN - 05/15/2017 8:19 AM EDT Problem: Patient Care Overview Goal: Plan of Care Review Outcome: Ongoing (Interventions Implemented as Appropriate) 05/14/17 0529 Plan of Care Review Progress progress toward functional goals as expected Coping/Psychosocial Plan Of Care Reviewed With patient OUTCOME EVALUATION NOTE: OUTCOME SUMMARY: Pt in good spirits, talking on phone with several family members from out of state. Pt denies pain at this time. Dsg changes done to B breast incisions and umbilical incision with Silavadene cream, Telfa and ABD pads. Sutures to breasts SPECIAL EDUCATION CURRICULUM SPECIALIST. Bilateral nipples and umbilicus black in color, pt reports no sensation. JPx3 drains emptied q4h per MD order, serous drainage noted. Wound vac to lower abdomen intact at 125 mmHg continuous suction. Pt OOB independently to BR. PLAN MOVING FORWARD: Pain control, wound vac changes, dsg changes BID, IV abx INDIVIDUALIZED FALL PREVENTION INTERVENTIONS: Patient-specific fall risk factors per assessment: [current deficits]: Invasive tubing, generalizedweakness Assistance [level of assistance required for transfers and ambulation]: OOB independently Supervision [direct monitoring required during toileting and ADLs]: independent Surveillance [continuous indirect monitoring]: Nathan, hourly rounding. Patient-specific fall prevention interventions for sensory deficits provided, if applicable: [X] Yes CPG GOAL OUTCOME EVALUATION: Goal: Individualization & Mutuality Outcome: Ongoing (Interventions Implemented as Appropriate) 05/11/17 1801 05/12/17 1400 Individualization Patient Specific Goals Pain control, infection containment -- Patient Specific Interventions frequent dressing changes -- Mutuality/Individual Preferences What Anxieties, Fears or Concerns Do You Have About Your Health or Care? -- None What Questions Do You Have About Your Health or Care? -- None What Information Would Help Us Give You More Personalized Care? -- None Goal: Fall Prevention-Safe Patient Handling Outcome: Ongoing (Interventions Implemented as Appropriate) 05/13/17 1542 05/14/17 0915 05/14/172049 Daily Care Interventions Self-Care Promotion independence encouraged;BADL personal objects within reach -- -- Restraint Interventions Safety Promotion/Fall Prevention -- activity supervised -- Activity Activity Type -- -- -- Activity Assistance Provided -- -- -- Assistive Device Utilized -- -- -- Positioning Body Position -- -- -- [place] Fall Risk History of Falling -- -- 0 Secondary Diagnosis -- -- 15 Ambulatory Aids -- -- 0 Intravenous Therapy/Heparin/Saline Lock -- -- 20 Gait/Transferring -- -- 10 Mental Status -- -- 0 Score -- -- 45 OTHER [place] Fall Risk -- -- High 05/14/17 2315 Daily Care Interventions Self-Care Promotion -- Restraint Interventions Safety Promotion/Fall Prevention -- Activity Activity Type ambulated to bathroom Activity Assistance Provided independent Assistive Device Utilized none Positioning Body Position independent [place] Fall Risk History of Falling -- Secondary Diagnosis -- Ambulatory Aids -- Intravenous Therapy/Heparin/Saline Lock -- Gait/Transferring -- Mental Status -- Score -- OTHER [place] Fall Risk -- Goal: Infection Control Outcome: Ongoing (Interventions Implemented as Appropriate) 05/13/172012 Coping Strategies Supportive Measures active listening utilized;relaxation techniques promoted;self-care encouraged;verbalization of feelings encouraged Safety Interventions Isolation Precautions standard precautions maintained Infection Prevention environmental surveillance performed;personal protective equipment utilized;rest/sleep promoted;single patient room provided Goal: Discharge Needs Assessment Outcome: Ongoing (Interventions Implemented as Appropriate) 05/11/17 0309 05/12/17 1400 05/14/17 0319 Discharge Needs Assessment Concerns To Be Addressed -- -- no discharge needs identified;denies needs/concerns at this time Readmission Within The Last 30 Days -- -- no previous admission in last 30 days Equipment Needed After Discharge none -- -- Discharge Disposition home or self-care -- -- Current Health Outpatient/Agency/Support Group Needs homecare agency (specify level of care) -- -- Anticipated Changes Related to Illness none -- -- Activity/Self Care Review of Systems Equipment Currently Used at Home -- none -- Living Environment Transportation Available -- family or friend will provide -- Goal: Interdisciplinary Rounds/Family Conf Outcome: Ongoing (Interventions Implemented as Appropriate) 05/13/17 1542 Interdisciplinary Rounds/Family Conf Participants patient;nursing Problem: Infection, Risk/Actual (Adult) Goal: Identify Related Risk Factors and Signs and Symptoms Related risk factors and signs and symptoms are identified upon initiation of Human Response Clinical Practice Guideline (CPG) Outcome: Ongoing (Interventions Implemented as Appropriate) 05/14/17 0319 Infection, Risk/Actual Infection, Risk/Actual: Related Risk Factors chronic illness/condition;surgery/procedure Signs and Symptoms (Infection, Risk/Actual) drainage;pain Goal: Infection Prevention/Resolution Patient will demonstrate the desired outcomes by discharge/transition of care. Outcome: Ongoing (Interventions Implemented as Appropriate) 05/14/17 0318 Infection, Risk/Actual (Adult) Infection Prevention/Resolution making progress toward outcome * Initial Assessments - Ira Velazquez RN - 05/14/2017 4:22 PM EDT OFFICE OF CARE MANAGEMENT Met with pt and her this afternoon. She is reclined in bed and has just returned from procedure in IR. Pt with wound VAC to abdomen and YG drains in place axillary area. We discussed potential d/c needs: Wound VAC ? abx plan- unclear IV vrs PO VNA support.- is familiar with [facility]. The patient/payable representative has been provided a list of Home Health Agencies/DME vendors which servetheir preferred geographic area. A letter describing our affiliations was reviewed with them and they were educated about their right to choose where referrals are placed. Patient requests referral to [facility] [place]. PHONE: [phone] FAX: [phone] Expected date of discharge: TBD Referral routed to the Nursing Teacher for matching with agency/vendor and to provide any required information. The patient/payable representative has been provided a list of Home Health Agencies/DME vendors which servetheir preferred geographic area. A letter describing our affiliations was reviewed with them and they were educated about their right to choose where referrals are placed. Patient requests referral [place], [place] or 2. Expected date of discharge: TBD Referral routed to the Nursing Teacher for matching with agency/vendor and to provide any required information. At this time [facility] initiate [facility] and follow. Pt would need to be able to tolerate VAC dressing change at bedside before d/c if appropriate. * Plan of Care - Elisa Hagen RN - 05/14/2017 5:32 AM EDT Problem: Patient Care Overview Goal: Plan of Care Review Outcome: Ongoing (Interventions Implemented as Appropriate) 05/14/17 0529 Plan of Care Review Progress progress toward functional goals as expected Coping/Psychosocial Plan Of Care Reviewed With patient OUTCOME EVALUATION NOTE: OUTCOME SUMMARY: Pt denies chest pain, SOB, nausea, and n/t. Pt's pain is tolerable. Pt's dressings were changed perMD orders. No acute events over night. See doc flow for full pt assessment. Call [place] within reach.VSS. Will continue to monitor. PLAN MOVING FORWARD: Pain management, dressing changes, d/c planning INDIVIDUALIZED FALL PREVENTION INTERVENTIONS: Patient-specific fall risk factors per assessment: [current deficits]: Hospital environment Assistance [level of assistance required for transfers and ambulation]: Ind Supervision [direct monitoring required during toileting and ADLs]: Ind Surveillance [continuous indirect monitoring]: Masimo, hourly rounding Patient-specific fall prevention interventions for sensory deficits provided, if applicable: [X] N/A * Plan of Care - Milagro Pollard RN - 05/13/2017 3:48 PM EDT Problem: Patient Care Overview Goal: Plan of Care Review Outcome: Ongoing (Interventions Implemented as Appropriate) 05/13/17 7182 Plan of Care Review Progress progress toward functional goals as expected Coping/Psychosocial Plan Of Care Reviewed With patient OUTCOME EVALUATION NOTE: OUTCOME SUMMARY: Patient tolerating PO diet. Patients son at bedside this morning. Patients pain treated with scheduled medication, see MAR. Dressing changes done per MD order this morning and abdomen dressing changed mid afternoon for PRN change. Patient using call [place] appropriately. Will continue to monitor. PLAN MOVING FORWARD: -Pain Control -Mobilize -Dressing changes -Discharge planning INDIVIDUALIZED FALL PREVENTION: Fall Score: 35 - medium Baseline mobility: up at [place] Supervision: -Patient independent for all ADLs Surveillance: -Bed Alarm/Chair Alarm -Masimo -Purposeful Rounding -Team Care -Bedside Nurse Knowledge Exchange CPG OUTCOME EVALUATION: Goal: Fall Prevention-Safe Patient Handling Outcome: Ongoing (Interventions Implemented as Appropriate) 05/13/1789905/13/17 1542 Daily Care Interventions Self-Care Promotion -- independence encouraged;BADL personal objects within reach Restraint Interventions Safety Promotion/Fall Prevention -- activity supervised;fall prevention program maintained;nonskid shoes/slippers when out of bed;safety round/check completed Activity Activity Type -- activity encouraged Activity Assistance Provided -- independent Assistive Device Utilized -- none Positioning Body Position -- independent [place] Fall Risk History of Falling 0 -- Secondary Diagnosis 15 -- Ambulatory Aids 0 -- Intravenous Therapy/Heparin/Saline Lock 20 -- Gait/Transferring 0 -- Mental Status 0 -- Score 35 -- OTHER [place] Fall Risk Med -- Goal: Infection Control Outcome: Ongoing (Interventions Implemented as Appropriate) 05/13/1789905/13/17 154 Coping Strategies Supportive Measures -- active listening utilized;relaxation techniques promoted;self-care encouraged;verbalization of feelings encouraged Safety Interventions Isolation Precautions standard precautions maintained -- Infection Prevention rest/sleep promoted;environmental surveillance performed;single patient room provided -- Goal: Interdisciplinary Rounds/Family Conf Outcome: Ongoing (Interventions Implemented as Appropriate) 05/13/17 1542 Interdisciplinary Rounds/Family Conf Participants patient;nursing Problem: Infection, Risk/Actual (Adult) Goal: Identify Related Risk Factors and Signs and Symptoms Related risk factors and signs and symptoms are identified upon initiation of Human Response Clinical Practice Guideline (CPG) Outcome: Ongoing (Interventions Implemented as Appropriate) 05/13/17 154 Infection, Risk/Actual Infection, Risk/Actual: Related Risk Factors surgery/procedure;chronic illness/condition Signs and Symptoms (Infection, Risk/Actual) drainage;pain Goal: Infection Prevention/Resolution Patient will demonstrate the desired outcomes by discharge/transition of care. Outcome: Ongoing (Interventions Implemented as Appropriate) 05/13/17 154 Infection, Risk/Actual (Adult) Infection Prevention/Resolution making progress toward outcome * Plan of Care - Ailyn Pruitt RN - 05/13/2017 6:30 AM EDT Problem: Patient Care Overview Goal: Plan of Care Review Outcome: Ongoing (Interventions Implemented as Appropriate) 05/11/17180005/12/172017 Plan of Care Review Progress progress toward functional goals as expected -- Coping/Psychosocial Plan Of Care Reviewed With -- patient OUTCOME EVALUATION NOTE: OUTCOME SUMMARY: Patient progressing towards d/c goals appropriately at this time. Patients pain adequately controlled with scheduled Tylenol. Silvadene cream applied to bilat nipples and umbilicus per order. Abdominal wound draining serous drainage, dressing changed and repacked x2 this shift with dry gauze per MDorder. YG x2 draining moderate amounts serous drainage. Pt Independent in room, voiding adequate amounts CYU. Will continue to monitor and help patient reach d/c goals. PLAN MOVING FORWARD: Pain control Dressing changes Wound care D/c planning INDIVIDUALIZED FALL PREVENTION: Patient is currently a low risk to Fall. Patient educated on bed/chair alarm, demonstrates proper use of call [place] and verbalizes understanding of fall preventions implemented. Patient-specific fall risk factors per assessment: [current deficits]: Generalized weakness, Pain, Medications, Hospital Environment. Assistance [level of assistance required for transfers and ambulation]: Independant Supervision [direct monitoring required during toileting and ADLs]: minimal assistance with ADL's Surveillance [continuous indirect monitoring]: Masimo, Purposeful Rounding, Bedside Report Patient-specific fall prevention interventions for sensory deficits provided, if applicable: [X] Yes CPG GOAL OUTCOME EVALUATION: Goal: Individualization & Mutuality Outcome: Ongoing (Interventions Implemented as Appropriate) 05/11/17180005/12/17 1400 Individualization Patient Specific Goals Pain control, infection containment -- Patient Specific Interventions frequent dressing changes -- Mutuality/Individual Preferences What Anxieties, Fears or Concerns Do You Have About Your Health or Care? -- None What Questions Do You Have About Your Health or Care? -- None What Information Would Help Us Give You More Personalized Care? -- None Goal: Fall Prevention-Safe Patient Handling Outcome: Ongoing (Interventions Implemented as Appropriate) 05/12/17 0805/12/172017 Daily Care Interventions Self-Care Promotion independence encouraged;BADL personal objects within reach;BADL personal routines maintained -- [place] Fall Risk History of Falling -- 0 Secondary Diagnosis -- 15 Ambulatory Aids -- 0 Intravenous Therapy/Heparin/Saline Lock -- 20 Gait/Transferring -- 0 Mental Status -- 0 Score -- 35 OTHER [place] Fall Risk -- Med Restraint Interventions Safety Promotion/Fall Prevention -- fall prevention program maintained;nonskid shoes/slippers when out of bed;safety round/check completed Positioning Body Position -- independent Activity Activity Type -- up ad rowena Activity Assistance Provided -- independent Assistive Device Utilized -- none Goal: Infection Control Outcome: Ongoing (Interventions Implemented as Appropriate) 05/12/172017 Safety Interventions Isolation Precautions standard precautions maintained Infection Prevention rest/sleep promoted Coping Strategies Supportive Measures active listening utilized;verbalization of feelings encouraged Problem: Infection, Risk/Actual (Adult) Goal: Identify Related Risk Factors and Signs and Symptoms Related risk factors and signs and symptoms are identified upon initiation of Human Response Clinical Practice Guideline (CPG) Outcome: Ongoing (Interventions Implemented as Appropriate) 05/11/17 0309 Infection, Risk/Actual Infection, Risk/Actual: Related Risk Factors surgery/procedure;tissue perfusion altered Signs and Symptoms (Infection, Risk/Actual) drainage;malaise;pain Goal: Infection Prevention/Resolution Patient will demonstrate the desired outcomes by discharge/transition of care. Outcome: Ongoing (Interventions Implemented as Appropriate) 05/11/17 0309 Infection, Risk/Actual (Adult) Infection Prevention/Resolution making progress toward outcome * Plan of Care - Khris Galicia - 05/12/2017 2:57 PM EDT Problem: Patient Care Overview Goal: Plan of Care Review Outcome: Ongoing (Interventions Implemented as Appropriate) 05/11/17 18005/12/17 08 Plan of Care Review Progress progress toward functional goals as expected -- Coping/Psychosocial Plan Of Care Reviewed With -- patient OUTCOME EVALUATION NOTE: OUTCOME SUMMARY: Patient progressing towards d/c goals appropriately at this time. Patients pain adequately controlled, see MAR for medications given. Pt was mobilizing in room and veyr self sufficent w/ care. Pt hadall dressing changes done at the beginning of shift needed panis dressing done four times throughout shift. All other dressing changes were done at the beginning of the shift. Left arm became edemadous at 15:00 MD made aware. Will continue to monitor and help patient reach d/c goals. PLAN MOVING FORWARD: Pain control Mobilize D/c planning INDIVIDUALIZED FALL PREVENTION: Patient is currently a high risk to Fall. Patient educated on bed/chair alarm, demonstrates proper use of call [place] and verbalizes understanding of fall preventions implemented. Patient-specific fall risk factors per assessment: [current deficits]: Surgical- bra, Pain, Medications, Hospital Environment. Assistance [level of assistance required for transfers and ambulation]: Stand-by assist Supervision [direct monitoring required during toileting and ADLs]: Eyes assistance with ADL's Surveillance [continuous indirect monitoring]: Masimo, Purposeful Rounding, Bedside Report Patient-specific fall prevention interventions for sensory deficits provided, if applicable: [X] N/A CPG GOAL OUTCOME EVALUATION: * Plan of Care - Tahira Aponte RN - 05/12/2017 2:05 AM EDT Problem: Patient Care Overview Goal: Plan of Care Review Outcome: Ongoing (Interventions Implemented as Appropriate) 05/11/17 18005/11/172034 Plan of Care Review Progress progress toward functional goals as expected -- Coping/Psychosocial Plan Of Care Reviewed With -- patient OUTCOME EVALUATION NOTE: OUTCOME SUMMARY: Pt slept in between care overnight. A/Ox4. Pain controlled w/ tylenol. Pt ambulating independently in room. Voiding adequate amounts. Midline wound to lower abdomen packed w/ dry-packing strips (per MD order). Moderate amount of serous drainage from wound. Silvadene applied to bilat nipples and umbilicus. YG putting out moderate amount of serous drainage. Pt denies chest pain, pressure, SOB, n/v.VSS. Oriented to room and call [place]. Will continue to monitor. PLAN MOVING FORWARD: -[x]Pain Control -[x]Mobilize -[x]IV abx -[x]Dressing changes BID INDIVIDUALIZED FALL PREVENTION: Fall Score: 35 Baseline mobility: independent Assistance: -independent Supervision: -[]Hands-on for all transfers and ambulation -[x]Eyes-on for all transfers and ambulation -[]Arms-Reach for all transfers and ambulation Surveillance: -[]Bed Alarm/Chair Alarm -[x]Purposeful Rounding -[x]Team Care -[x]Bedside Nurse Knowledge Exchange CPG OUTCOME EVALUATION: Goal: Individualization & Mutuality 05/11/171800 Individualization Patient Specific Goals Pain control, infection containment Patient Specific Interventions frequent dressing changes Goal: Fall Prevention-Safe Patient Handling 05/11/17 0700 05/11/17180005/11/172034 Daily Care Interventions Self-Care Promotion -- independence encouraged;BADL personal objects within reach -- [place] Fall Risk History of Falling -- -- 0 Secondary Diagnosis -- -- 15 Ambulatory Aids -- -- 0 Intravenous Therapy/Heparin/Saline Lock -- -- 20 Gait/Transferring -- -- 0 Mental Status -- -- 0 Score -- -- 35 OTHER [place] Fall Risk -- -- Med Restraint Interventions Safety Promotion/Fall Prevention -- -- fall prevention program maintained;nonskid shoes/slippers when out of bed Positioning Body Position -- -- independent Activity Activity Type -- -- activity adjusted per tolerance;ambulated in room Activity Assistance Provided -- -- independent Assistive Device Utilized none -- -- Goal: Infection Control 05/11/172034 Safety Interventions Isolation Precautions standard precautions maintained Infection Prevention environmental surveillance performed;rest/sleep promoted Coping Strategies Supportive Measures active listening utilized;self-care encouraged Goal: Discharge Needs Assessment 05/11/17308 Discharge Needs Assessment Concerns To Be Addressed no discharge needs identified Readmission Within The Last 30 Days previous discharge plan unsuccessful Equipment Needed After Discharge none Discharge Disposition home or self-care Current Health Outpatient/Agency/Support Group Needs homecare agency (specify level of care) Anticipated Changes Related to Illness none Activity/Self Care Review of Systems Equipment Currently Used at Home none Living Environment Transportation Available family or friend will provide Goal: Interdisciplinary Rounds/Family Conf 05/11/17308 Interdisciplinary Rounds/Family Conf Participants nursing;patient Problem: Infection, Risk/Actual (Adult) Goal: Identify Related Risk Factors and Signs and Symptoms Related risk factors and signs and symptoms are identified upon initiation of Human Response Clinical Practice Guideline (CPG) 05/11/17308 Infection, Risk/Actual Infection, Risk/Actual: Related Risk Factors surgery/procedure;tissue perfusion altered Signs and Symptoms (Infection, Risk/Actual) drainage;malaise;pain Goal: Infection Prevention/Resolution Patient will demonstrate the desired outcomes by discharge/transition of care. 05/11/17 0309 Infection, Risk/Actual (Adult) Infection Prevention/Resolution making progress toward outcome * Plan of Care - Wanda Terry RN - 05/11/2017 6:12 PM EDT Problem: Patient Care Overview Goal: Plan of Care Review Outcome: Ongoing (Interventions Implemented as Appropriate) 05/11/17 0833 05/11/171800 Plan of Care Review Progress -- progress toward functional goals as expected Coping/Psychosocial Plan Of Care Reviewed With patient -- OUTCOME EVALUATION NOTE: OUTCOME SUMMARY: Patient alert and oriented x4; VSs stable. Pain well controlled with scheduled tylenol. Dressings to panis saturated throughout the day; filled with gauze and reinforced with ABD pad. YG drains collecting small amounts of serous drainage. IV abx administered as ordered. Pt up independently in room;voiding adequately. Will continue to monitor. PLAN MOVING FORWARD: Continue to monitor pain, IV abx, discharge planning. INDIVIDUALIZED FALL PREVENTION INTERVENTIONS: Patient-specific fall risk factors per assessment: [current deficits]: YG drains x2, leaking wound,generalized weakness. Assistance [level of assistance required for transfers and ambulation]: Independent Supervision [direct monitoring required during toileting and ADLs]: Independent. Surveillance [continuous indirect monitoring]: Masimo, purposeful rounding, NKE, hourly safety checks. Patient-specific fall prevention interventions for sensory deficits provided, if applicable: CPG GOAL OUTCOME EVALUATION: Goal: Individualization & Mutuality Outcome: Ongoing (Interventions Implemented as Appropriate) 05/11/17 180 Individualization Patient Specific Goals Pain control, infection containment Patient Specific Interventions frequent dressing changes Goal: Fall Prevention-Safe Patient Handling Outcome: Ongoing (Interventions Implemented as Appropriate) 05/11/17 0700 05/11/17 1145 05/11/17 1430 Daily Care Interventions Self-Care Promotion -- -- -- [place] Fall Risk History of Falling -- -- 0 Secondary Diagnosis -- -- 15 Ambulatory Aids -- -- 0 Intravenous Therapy/Heparin/Saline Lock -- -- 20 Gait/Transferring -- -- 0 Mental Status -- -- 0 Score -- -- 35 OTHER [place] Fall Risk -- -- Med Restraint Interventions Safety Promotion/Fall Prevention -- -- activity supervised;fall prevention program maintained;nonskid shoes/slippers when out of bed;safety round/check completed Positioning Body Position -- -- independent Activity Activity Type -- -- activity adjusted per tolerance;up ad rowena Activity Assistance Provided -- assistance, stand-by -- Assistive Device Utilized none -- -- 05/11/17 180 Daily Care Interventions Self-Care Promotion independence encouraged;BADL personal objects within reach [place] Fall Risk History of Falling -- Secondary Diagnosis -- Ambulatory Aids -- Intravenous Therapy/Heparin/Saline Lock -- Gait/Transferring -- Mental Status -- Score -- OTHER [place] Fall Risk -- Restraint Interventions Safety Promotion/Fall Prevention -- Positioning Body Position -- Activity Activity Type -- Activity Assistance Provided -- Assistive Device Utilized -- Goal: Infection Control Outcome: Ongoing (Interventions Implemented as Appropriate) 05/11/17 0833 05/11/17 1430 Safety Interventions Isolation Precautions -- standard precautions maintained Infection Prevention -- environmental surveillance performed;rest/sleep promoted;single patient room provided Coping Strategies Supportive Measures active listening utilized;goal setting facilitated;positive reinforcement provided;self-care encouraged;verbalization of feelings encouraged -- Goal: Discharge Needs Assessment Outcome: Ongoing (Interventions Implemented as Appropriate) 05/11/17 030 Discharge Needs Assessment Concerns To Be Addressed no discharge needs identified Readmission Within The Last 30 Days previous discharge plan unsuccessful Equipment Needed After Discharge none Discharge Disposition home or self-care Current Health Outpatient/Agency/Support Group Needs homecare agency (specify level of care) Anticipated Changes Related to Illness none Activity/Self Care Review of Systems Equipment Currently Used at Home none Living Environment Transportation Available family or friend will provide Goal: Interdisciplinary Rounds/Family Conf Outcome: Ongoing (Interventions Implemented as Appropriate) 05/11/17308 Interdisciplinary Rounds/Family Conf Participants nursing;patient Problem: Infection, Risk/Actual (Adult) Goal: Identify Related Risk Factors and Signs and Symptoms Related risk factors and signs and symptoms are identified upon initiation of Human Response Clinical Practice Guideline (CPG) Outcome: Ongoing (Interventions Implemented as Appropriate) 05/11/17 0309 Infection, Risk/Actual Infection, Risk/Actual: Related Risk Factors surgery/procedure;tissue perfusion altered Signs and Symptoms (Infection, Risk/Actual) drainage;malaise;pain Goal: Infection Prevention/Resolution Patient will demonstrate the desired outcomes by discharge/transition of care. Outcome: Ongoing (Interventions Implemented as Appropriate) 05/11/17 0309 Infection, Risk/Actual (Adult) Infection Prevention/Resolution making progress toward outcome * Plan of Care - Tahira Aponte RN - 05/11/2017 3:17 AM EDT Problem: Patient Care Overview Goal: Plan of Care Review Outcome: Ongoing (Interventions Implemented as Appropriate) 05/10/171999 Coping/Psychosocial Plan Of Care Reviewed With patient OUTCOME EVALUATION NOTE: OUTCOME SUMMARY: Pt slept in between care overnight. A/Ox4. Pain controlled w/ oxy and tylenol. Pt ambulating independently in room. Voiding adequate amounts. Midline wound to lower abdomen packed w/ dry-packing strips (per MD order). Moderate amount of serous drainage from wound. Silvadene applied to bilat nipplesand umbilicus. YG putting out moderate amount of serosanguinous, purulent drainage. Pt NPO since 0000. VSS. Oriented to room and call [place]. Will continue to monitor. PLAN MOVING FORWARD: -[x]Pain Control -[x]Mobilize -[x]IV abx -[x]OR for abscess drained? INDIVIDUALIZED FALL PREVENTION: Fall Score: 35 Baseline mobility: independent Assistance: -independent Supervision: -[]Hands-on for all transfers and ambulation -[x]Eyes-on for all transfers and ambulation -[]Arms-Reach for all transfers and ambulation Surveillance: -[]Bed Alarm/Chair Alarm -[x]Purposeful Rounding -[x]Team Care -[x]Bedside Nurse Knowledge Exchange CPG OUTCOME EVALUATION: Goal: Fall Prevention-Safe Patient Handling 05/10/171999 [place] Fall Risk History of Falling 0 Secondary Diagnosis 15 Ambulatory Aids 0 Intravenous Therapy/Heparin/Saline Lock 20 Gait/Transferring 0 Mental Status 0 Score 35 OTHER [place] Fall Risk Med Restraint Interventions Safety Promotion/Fall Prevention fall prevention program maintained;nonskid shoes/slippers when outof bed;safety round/check completed Positioning Body Position independent Activity Activity Type activity adjusted per tolerance Activity Assistance Provided independent Goal: Infection Control 05/10/171999 Safety Interventions Isolation Precautions standard precautions maintained Infection Prevention environmental surveillance performed;rest/sleep promoted Coping Strategies Supportive Measures active listening utilized;self-care encouraged Goal: Discharge Needs Assessment 05/11/17308 Discharge Needs Assessment Concerns To Be Addressed no discharge needs identified Readmission Within The Last 30 Days previous discharge plan unsuccessful Equipment Needed After Discharge none Discharge Disposition home or self-care Current Health Outpatient/Agency/Support Group Needs homecare agency (specify level of care) Anticipated Changes Related to Illness none Activity/Self Care Review of Systems Equipment Currently Used at Home none Living Environment Transportation Available family or friend will provide Goal: Interdisciplinary Rounds/Family Conf 05/11/17308 Interdisciplinary Rounds/Family Conf Participants nursing;patient Problem: Infection, Risk/Actual (Adult) Goal: Identify Related Risk Factors and Signs and Symptoms Related risk factors and signs and symptoms are identified upon initiation of Human Response Clinical Practice Guideline (CPG) Outcome: Ongoing (Interventions Implemented as Appropriate) 05/11/17308 Infection, Risk/Actual Infection, Risk/Actual: Related Risk Factors surgery/procedure;tissue perfusion altered Signs and Symptoms (Infection, Risk/Actual) drainage;malaise;pain Goal: Infection Prevention/Resolution Patient will demonstrate the desired outcomes by discharge/transition of care. Outcome: Ongoing (Interventions Implemented as Appropriate) 05/11/17308 Infection, Risk/Actual (Adult) Infection Prevention/Resolution making progress toward outcome documented in this encounter Plan of Treatment Upcoming Encounters Date Type Department Care Team (Late st Contact Info) Description 01/22/2024 10:30 AM EST Appointment Mammography/[place] [address] Ladi Mendosa MD [facility] [place] [address] 01/30/2024 11:30 AM EST Office Visit Dermatology at [facility] [address] [place] [address] Nilda Luis MD [facility] [place] [address] [place] [address] 02/15/2024 9:30 AM EST [place] [id number] [place] [address] documented as of this encounter Procedures Procedure Name Priority Date/Time Associated Diagnosis Comments IR DRAIN CHECK/CHANGE/REMOVE Routine 05/25/2017 1:21 PM EDT Status post bilateral breast reconstruction URINALYSIS MICROSCOPIC EXAM STAT 05/14/2017 5:30 PM EDT URINE HOLD STAT 05/14/2017 5:30 PM EDT URINALYSIS WITH REFLEX CULTURE STAT 05/14/2017 5:30 PM EDT IR ALL DRAINAGE PROCEDURES Routine 05/14/2017 3:49 PM EDT ANAEROBIC CULTURE Routine 05/14/2017 3:2 9 PM EDT BODY FLUID CULTURE, AEROBIC & ANAEROBIC Routine 05/14/2017 3:29 PM EDT BODY FLUID CULTURE, AEROBIC Routine 05/14/2017 3:29 PM EDT MAMMO BREAST US LIMITED LEFT Routine 05/14/2017 9:10 AM EDT HEMOGRAM Routine 05/14/2017 3:32 AM EDT DIFFERENTIAL, AUTOMATED Routine 05/14/2017 3:32 AM EDT CBC (WITH DIFF) Routine 05/14/2017 3:32 AM EDT HEMOGRAM Routine 05/13/2017 3:46 AM EDT DIFFERENTIAL, AUTOMATED Routine 05/13/2017 3:46 AM EDT CBC (WITH DIFF) Routine 05/13/2017 3:46 AM EDT URINE CULTURE Routine 05/11/2017 2:48 PM EDT IR ALL DRAINAGE PROCEDURES Routine 05/11/2017 11:38 AM EDT ANAEROBIC CULTURE Routine 05/11/2017 11: 20 AM EDT BODY FLUID CULTURE, AEROBIC & ANAEROBIC Routine 05/11/2017 11:20 AM EDT BODY FLUID CULTURE, AEROBIC Routine 05/11/2017 11:20 AM EDT HEMOGRAM Routine 05/10/2017 5:20 PM EDT DIFFERENTIAL, AUTOMATED Routine 05/10/2017 5:20 PM EDT CBC (WITH DIFF) Routine 05/10/2017 5:20 PM EDT PREALBUMIN Routine 05/10/2017 5:20 PM EDT documented in this encounter Results * IR Drain Check/Change/Remove (05/25/2017 1:21 PM EDT) Anatomical Region Laterality Modality Head X-Ray Angiograph y Narrative 05/25/2017 2:06 PM EDT IR Procedure Note Procedure: ?Right breast drain check ?Left axillary drain check & removal History/indication: ?51 y.o. female with breast CA to the left. Pt underwent bilateral breast reconstruction after mastectomy with SALVADOR flaps (04/26/17); ??complicated by intraoperative demise followed by Tissue Supervisor Fusing Room placement. Patient had a RIGHT breast insitu [...] injection fills a space surrounding the tissue newspaper manager. The drain was flushed and re-connected to [...] injection fills a space surrounding the tissue newspaper manager. The drain was flushed and re-connected to suction bulb. 2. ??Left axillary drain check: no significant cavity observed on either drain injection or US evaluation. 3. ??Over the wire removal of the left axillary drain as above. Attending: ?Rashaad Paulson MD ? I was present during the intraservice time as documented by the IR Nurse. Mali Crowley MD IMG IR ORDERABLES * (ABNORMAL) Urinalysis Microscopic Exam (05/14/2017 5:30 PM EDT) RBC UA 2 0 - 4 /HPF [facility] WBC UA 2 0 - 5 /HPF [facility] Squam Epith UA 1 <=4 /HPF [facility] Hyaline Cast UA 4(H) 0 - 2 /LPF [facility] Urine specimen obtained by clean catch procedure (specimen) 05/14/2017 5:30 PM EDT 05/14/2017 6:07 PM EDT Narrative Resulting Agency Comment Spec In Lab Kaveh Whiteside MD URINE ORDERA BLES Performing Organization Address City/[facility]/ZIP Co de Phone Number [facility] [place] [address] * Urine Hold (05/14/2017 5:30 PM EDT) Urine Hold Sample in lab. [facility] Urine specimen (specimen) Urine / Unknown 05/14/2017 5:30 PM EDT 05/14/2017 6:08 PM EDT Kaveh Whiteside MD URINE ORDERA BLES Performing Organization Address City/[facility]/ZIP Co de Phone Number [facility] [place] [address] * (ABNORMAL) Urinalysis with reflex Culture (05/14/2017 5:30 PM EDT) Glucose UA Negative Negative mg/dL [facility] Protein UA 100(A) Negative mg/dL [facility] Bilirubin UA Negative Negative mg/dL [facility] LABORATORY Comment: Clinical correlation required for positive Urine Bilirubin results as false positive may occur with some drugs and drug related products. If a false positive is suspected a serum total bilirubin should be considered if clinically indicated. Urobilinogen UA Normal Normal mg/dL M SHERIDAN [facility] pH UA 6.0 5.0 - 8.0 [facility] Blood UA Negative Negative mg/dL [facility] Ketones UA Negative Negative mg/dL [facility] Nitrite UA Negative Negative [facility] Leukocytes UA Negative Negative mcL MAR Y [facility] Appearance UA Clear Clear [facility] Spec [place] UA 1.018 1.002 - 1.030 [facility] Color UA Yellow Yellow [facility] Culture Reflexed No GRICEL John [facility] Urine specimen obtained by clean catch procedure (specimen) 05/14/2017 5:30 PM EDT 05/14/2017 6:07 PM EDT Narrative Resulting Agency Comment Spec In Lab Mali Lakhani MD URINE ORDERABLES [facility] [place] [address] * IR All Drainage Procedures (05/14/2017 3:49 PM EDT) Anatomical Region Laterality Modality X-Ray Angiograph y Narrative 05/14/2017 4:26 PM EDT IR PROCEDURE NOTE: ?? US-guided drain placement Indication : recurrent left axillary fluid collection after breast reconstruction with tissue expanders. Technique: After discussing risks (including infection and hemorrhage), and benefits, patient consented to the procedure. ??Due to the painful nature of the procedure, split doses of fentanyl ??were administered by the IR nurse during continuous monitoring of pulse, blood pressure and oxygen saturation. ?? Collection was localized with US. ??After sterile preparation of the overlying skin, 6cc 1% lidocaine SQ was administered for anesthesia, and an 18 ga needle was advanced under US guidance into the collection. ??Over an .035 guidewire, tract was dilated to 8 Fr, and an 8.5 Fr locking pigtail drain was placed. ??Catheter was secured to the skin and left to bulb suction drainage. ??Patient tolerated the procedure well. ??There were no immediate complications. Fluoro time: ??0 min. ??Contrast: 0 cc Omni 350. ??EBL : 0 cc Findings: 5 cm left axillary fluid collection, clear yellowish fluid aspirated. Specimen submitted for culture. Impression: Technically successful left axillary drain placement . Recommend: ??to bulb suction drainage Flush with 5-10 cc NS every 8-12 h. ?? Record outputs. Resident/Fellow: ?? Attending: ??I, Dr. Dey, was present throughout the procedure. I was present during the intraservice time as documented by the IR Nurse. ?? Mali Lakhani MD IMG IR ORDERABLES * Anaerobic Culture (05/14/2017 3:29 PM EDT) Anaerobic Culture No anaerobic organisms isolated [facility] Fluid specimen (specimen) 05/14/2017 3:29 PM EDT 05/14/2017 4:02 PM EDT Comment:LEFT AXIALLARY DRAIN Narrative Resulting Agency Comment Spec In Lab Mali Lakhani MD MICROBIOLOGY - GENER AL ORDERABLES Performing Organization Address [facility] Co de Phone Number [facility] [place] [address] * Body Fluid Culture, Aerobic (05/14/2017 3:29 PM EDT) Body Fluid Culture No growth [facility] Reviewed Stain No WBC's seen. No microorganisms seen. [facility] Gram Stain Cytocentrifuge Gram Stain performed No WBC's seen. No microorganisms seen. [facility] Fluid specimen (specimen) 05/14/2017 3:29 PM EDT 05/14/2017 4:02 PM EDT Comment:LEFT AXIALLARY DRAIN Narrative Resulting Agency Comment Spec In Lab Mali Lakhani MD MICROBIOLOGY - GENER AL ORDERABLES Performing Organization Address [facility] Co de Phone Number [facility] [place] [address] * US Breast Limited Left (05/14/2017 9:10 AM EDT) Anatomical Region Laterality Modality Breast Left Mammography Impressions 05/14/2017 10:27 AM EDT Fluid collections as described. The periimplant collections are not significant. Clinical follow-up advised. BI-RADS Category 2: Benign Findings Narrative 05/14/2017 10:27 AM EDT EXAMINATION: US ??BREAST LIMITED LEFT CLINICAL HISTORY: 51 y.o. female patient with PMH of JACQUELYN on CPAP, left breast CA, ER/ID+, HEr2-, HTN, HLD s/p bilateral mastectomy and failed SIEA, left axillary SLN excision and reconstruction with bilateral TE 04/26/2017, now with increased left axillary swelling TECHNIQUE: I performed high-resolution ultrasound of the left axilla and left breast mound/implant COMPARISON: This study was compared with prior images. FINDINGS: There are 3 flattened peripheral fluid collections around the tissue newspaper manager. There are as follows: Left 3:00 2.5 x 1.1 x 1.3 cm. This is associated with the drain. Left upper inner quadrant: 10:00 radian: 2.7 x 3.8 x 1.4 cm Left upper outer quadrant 2:00 radian: flattened collection 5.2 x 1 x 1.9 cm There is a postoperative seroma in the left axilla measuring 5.5 x 2.7 x 4.5 cm. Mali Lakhani MD IMG MAMMO ORDERABLES * (ABNORMAL) Differential, Automated (05/14/2017 3:32 AM EDT) Neutrophils % 63.2 % [facility] Neutr Abs (ANC) 7.79(H) 1.70 - 6.10 x10(3)/mc L [facility] Lymphocytes % 16.7 % [facility] Lymphocytes Abs 2.1 0.9 - 3.2 x10(3)/mc L [facility] Monocytes % 9.9 % [facility] Monocyte Abs 1.2(H) 0.3 - 0.9 x10(3)/mc L [facility] Eosinophils % 7.6 % [facility] Eosinophils Abs 0.9(H) 0.0 - 0.4 x10(3)/mc L [facility] Basophils % 1.8 % [facility] Basophils Abs 0.2(H) 0.0 - 0.1 x10(3)/mc L [facility] Immature Gran % 0.80 % [facility] Comment: Immature granulocytes(IG's)percentage and absolute count will include metamyelocytes, myelocytes, and promyelocytes. Blood smears from CBCs yielding IG's will be scanned manually for concordance. If this scan disagrees with the automated IG or if promyelocytes are noted, a manual differential will be performed. Nova Gran Abs 0.10(H) 0.00 - 0.04 x10(3)/[facility] LAB[facility] Blood specimen (specimen) 05/14/2017 3:32 AM EDT 05/14/2017 4:03 AM EDT Narrative Resulting Agency Comment Spec In Lab Kaveh Whiteside MD HEMATOLOGY O RDERABLES [facility] [place] [address] * (ABNORMAL) Hemogram (05/14/2017 3:32 AM EDT) WBC 12.3(H) 4.0 - 9.5 x10(3)/[facility] RBC 3.46(L) 4.00 - 5.21 x10(6)/[facility] Hemoglobin 10.6(L) 11.7 - 15.5 gm/dL [facility] Hematocrit 32.4(L) 35.7 - 45.8 % [facility] MCV 93.6 82.6 - 94.4 [facility] MCH 30.6 27.1 - 32.0 pg [facility] MCHC 32.7 31.7 - 35.0 gm/dL [facility] Platelets 575(H) 145 - 357 x10(3)/[facility] LABOR[facility]ORY RDWSD 46.7(H) 37.0 - 46.0 [facility] RDWCV 13.7 11.5 - 14.1 % [facility] MPV 8.7 7.6 - 12.9 fL [facility] nRBC % Auto 0.0 % [facility] nRBC Abs Auto 0.000 0.000 - 0.000 x10(3)/[facility] Blood specimen (specimen) 05/14/2017 3:32 AM EDT 05/14/2017 4:03 AM EDT Narrative Resulting Agency Comment Spec In Lab Kaveh Whiteside MD HEMATOLOGY O RDERABLES [facility] [place] [address] * (ABNORMAL) Differential, Automated (05/13/2017 3:46 AM EDT) Neutrophils % 61.8 % [facility] Neutr Abs (ANC) 8.09(H) 1.70 - 6.10 x10(3)/[facility]ATORY Lymphocytes % 16.8 % [facility] Lymphocytes Abs 2.2 0.9 - 3.2 x10(3)/[facility] LABORATORY Monocytes % 10.7 % [facility] Monocyte Abs 1.4(H) 0.3 - 0.9 x10(3)/[facility] LABORATORY Eosinophils % 8.1 % [facility] Eosinophils Abs 1.1(H) 0.0 - 0.4 x10(3)/[facility] LABORATORY Basophils % 1.7 % [facility] Basophils Abs 0.2(H) 0.0 - 0.1 x10(3)/[facility]ORAT[facility] Immature Gran % 0.90 % [facility] Comment: Immature granulocytes(IG's)percentage and absolute count will include metamyelocytes, myelocytes, and promyelocytes. Blood smears from CBCs yielding IG's will be scanned manually for concordance. If this scan disagrees with the automated IG or if promyelocytes are noted, a manual differential will be performed. Nova Gran Abs 0.12(H) 0.00 - 0.04 x10(3)/mc L [facility] Blood specimen (specimen) 05/13/2017 3:46 AM EDT 05/13/2017 4:22 AM EDT Narrative Resulting Agency Comment Spec In Lab Kaveh Whiteside MD HEMATOLOGY O RDERABLES [facility] [place] [address] * (ABNORMAL) Hemogram (05/13/2017 3:46 AM EDT) WBC 13.1(H) 4.0 - 9.5 x10(3)/[facility] RBC 3.27(L) 4.00 - 5.21 x10(6)/[facility] Hemoglobin 10.4(L) 11.7 - 15.5 gm/dL [facility] Hematocrit 31.1(L) 35.7 - 45.8 % [facility] MCV 95.1(H) 82.6 - 94.4 [facility] MCH 31.8 27.1 - 32.0 pg [facility] MCHC 33.4 31.7 - 35.0 gm/dL [facility] Platelets 558(H) 145 - 357 x10(3)/[facility] LAB[facility]ORY RDWSD 47.8(H) 37.0 - 46.0 [facility] RDWCV 13.8 11.5 - 14.1 % [facility] MPV 8.7 7.6 - 12.9 [facility] nRBC % Auto 0.0 % [facility] nRBC Abs Auto 0.000 0.000 - 0.000 x10(3)/[facility] Blood specimen (specimen) 05/13/2017 3:46 AM EDT 05/13/2017 4:22 AM EDT Narrative Resulting Agency Comment Spec In Lab Kaveh Whiteside MD HEMATOLOGY O RDERABLES [facility] [place] [address] * (ABNORMAL) Urine culture Clean Catch Urine (05/11/2017 2:48 PM EDT) Urine Culture 10,000-49,000 cfu/ml Escherichia coli 10,000-49,000 cfu/ml Enterococcus faecium * VRE, Vancomycin Resistance * (A) [facility] Organism Escherichia coli(A) [facility] Organism Enterococcus faecium(A) [facility] Urine specimen obtained by clean catch procedure (specimen) 05/11/2017 2:48 PM EDT 05/11/2017 3:24 PM EDT Narrative Resulting Agency Comment Spec [...] coli Meropenem MICROSCAN METHOD Sensitive Escherichia coli Nitrofurantoin MICROSCAN METHOD Sensitive Escherichia coli Piperacillin/Tazobactam MICROSCAN MET HOD Sensitive Escherichia coli Tetracycline MICROSCAN METHOD Sensitive Escherichia coli Tobramycin MICROSCAN METHOD Sensitive Escherichia coli Trimethoprim/Sulfa MICROSCAN METHOD Sensitive Enterococcus faecium Ampicillin MICROSCAN METHOD Resistant Enterococcus faecium Ciprofloxacin MICROSCAN METHOD Resistant Enterococcus faecium Daptomycin MICROSCAN METHOD >4 Enterococcus faecium Gentamicin 500 MICROSCAN METHOD Sensitive Enterococcus faecium Levofloxacin MICROSCAN METHOD Resistant Enterococcus faecium Linezolid MICROSCAN METHOD Sensitive Enterococcus faecium Nitrofurantoin MICROSCAN METHOD Intermediate Enterococcus faecium Penicillin MICROSCAN METHOD Resistant Enterococcus faecium Streptomycin 1000 MICROSCAN METHO D Sensitive Enterococcus faecium Tetracycline MICROSCAN METHOD Resistant Enterococcus faecium Vancomycin MICROSCAN METHOD Resistant Mali Lakhani MD MICROBIOLOGY - [facility] AL ORDERABLES [facility] [place] [address] * IR All Drainage Procedures (05/11/2017 11:38 AM EDT) Anatomical Region Laterality Modality X-Ray Angiograph y Narrative 05/11/2017 2:16 PM EDT VASCULAR AND INTERVENTIONAL RADIOLOGY PROCEDURE NOTE Procedure: Ultrasound guided left axillary fluid collection aspiration Indication for Procedure: Left axillary fluid collection, per Dr. Oscar note: Wendy Sandoval??is a 51 y.o.??female??with breast CA to the left. ?Pt underwent bilateral breast reconstruction after mastectomy with SALVADOR flaps (04/26/17); ??complicated by intraoperative demise followed by Tissue Supervisor Fusing Room placement. Patient has a RIGHT breast insitu with large volume output. ??The drain became partially dislodged, IR placed a new drain on 04/30 via the existing tract. Patient presented to clinic yesterday with fevers, malaise, fatigue and was found to have a LEFT axillary fluid collection. IR consulted for aspiration. Consent: After discussing the risks (including infection, hemorrhage, damage to surrounding structures, respiratory depression) and benefits, the patient consented to the procedure. Method of Sedation: ??Due to the painful nature of the procedure, patient received split doses of intravenous fentanyl and versed from the IR nurse while pulse, pressure, and oxygen saturation were continuously monitored. 1% lidocaine was used for local analgesia. Technique: The patient was positioned right lateral decubitus. A pre-procedure ultrasound showed a fluid collection in the posterior left axillary region. Prior to beginning the procedure, a standard time out Moment of Truth was performed to confirm all arteaga aspects (including the patient's identity, informed consent, medical record number, allergies, planned procedure and laterality if appropriate) all of which were correct. The posterior left axilla was prepped and draped in a sterile fashion. 1% lidocaine SQ was administered for local anesthesia. With ultrasound guidance, an 21 ga needle directed into the left fluid collection. There was free return of clear serous fluid. A 0.018 wire was advanced and a 4 Fr micropuncture dilator placed. A total of 45 cc of clear serous fluid was aspirated. Ultrasound confirmed trace amount of residual fluid after aspiration. The dilator was removed. Medications: Lidocaine 1% <10 mL SQ, Fentanyl ??150 mcg IV, Versed 3 mg IV EBL: <5 cc Complications: ??No immediate Specimens: Left axillary fluid sent for the requested labs Impression/Findings: 1. Left axillary fluid collection by US evaluation. 2. Total of 45 cc of clear serous fluid aspirated from the fluid collection with trace amount of fluid remaining. Operators: Resident: ??Christy Keenan MD Attending: Rashaad Paulson MD (I was present and scrubbed for the entire procedure) I was present during the intraservice time as documented by the IR Nurse. 05/11/2017 Mali Lakhani MD IMG IR ORDERABLES * Anaerobic Culture (05/11/2017 11:20 AM EDT) Anaerobic Culture No anaerobic organisms isolated [facility] Fluid specimen (specimen) 05/11/2017 11:20 AM EDT 05/11/2017 12:03 PM EDT Comment:S/P BREAST RECONSTRU CTION WITH TISSUE EXPANDERS NOW WITH FLUID COLLECTION TO LEFT AXILLA Narrative Resulting Agency Comment Spec In Lab Mali Lakhani MD MICROBIOLOGY - [facility] AL ORDERABLES [facility] [place] [address] * Body Fluid Culture, Aerobic (05/11/2017 11:20 AM EDT) Body Fluid Culture No growth [facility] Gram Stain Cytocentrifuge Gram Stain performed No WBC's seen. No microorganisms seen. [facility] Fluid specimen (specimen) 05/11/2017 11:20 AM EDT 05/11/2017 12:03 PM EDT Comment:S/P BREAST RECONSTRU CTION WITH TISSUE EXPANDERS NOW WITH FLUID COLLECTION TO LEFT AXILLA Narrative Resulting Agency Comment Spec In Lab Mali Lakhani MD MICROBIOLOGY - [facility] AL ORDERABLES Performing Organization Address City/[facility]/[place] [address] * (ABNORMAL) Differential, Automated (05/10/2017 5:20 PM EDT) Neutrophils % 72.0 % [facility] Neutr Abs (ANC) 13.44(H) 1.70 - 6.10 x10(3)/ L [facility] Lymphocytes % 13.0 % [facility] Lymphocytes Abs 2.4 0.9 - 3.2 x10(3)/[facility] LABORATORY Monocytes % 8.7 % [facility] Monocyte Abs 1.6(H) 0.3 - 0.9 x10(3)/[facility] LABORATORY Eosinophils % 3.8 % [facility] Eosinophils Abs 0.7(H) 0.0 - 0.4 x10(3)/[facility] Basophils % 1.3 % [facility] Basophils Abs 0.2(H) 0.0 - 0.1 x10(3)/[facility] Immature Gran % 1.20 % [facility] Comment: Immature granulocytes(IG's)percentage and absolute count will include metamyelocytes, myelocytes, and promyelocytes. Blood smears from CBCs yielding IG's will be scanned manually for concordance. If this scan disagrees with the automated IG or if promyelocytes are noted, a manual differential will be performed. Nova Gran Abs 0.22(H) 0.00 - 0.04 x10(3)/ L [facility] Blood specimen (specimen) 05/10/2017 5:20 PM EDT 05/10/2017 5:40 PM EDT Narrative Resulting Agency Comment Spec In Lab Alma CALLES HEMATOLOGY ORDERABL ES Performing Organization Address City/[facility]/ZIP Co de Phone Number [facility] [place] [address] * (ABNORMAL) Hemogram (05/10/2017 5:20 PM EDT) WBC 18.6(H) 4.0 - 9.5 x10(3)/[facility] RBC 3.71(L) 4.00 - 5.21 x10(6)/[facility] Hemoglobin 11.7 11.7 - 15.5 gm/dL [facility] Hematocrit 35.3(L) 35.7 - 45.8 % [facility] MCV 95.1(H) 82.6 - 94.4 fL [facility] MCH 31.5 27.1 - 32.0 pg [facility] MCHC 33.1 31.7 - 35.0 gm/dL [facility] Platelets 567(H) 145 - 357 x10(3)/[facility] RDWSD 47.4(H) 37.0 - 46.0 [facility] RDWCV 13.5 11.5 - 14.1 % [facility] MPV 8.9 7.6 - 12.9 [facility] nRBC % Auto 0.0 % [facility] nRBC Abs Auto 0.000 0.000 - 0.000 x10(3)/[facility] Blood specimen (specimen) 05/10/2017 5:20 PM EDT 05/10/2017 5:40 PM EDT Narrative Resulting Agency Comment Spec In Lab Alma CALLES HEMATOLOGY ORDERABL ES [facility] [place] [address] * (ABNORMAL) Prealbumin (05/10/2017 5:20 PM EDT) Prealbumin 46(H) 20 - 40 mg/dL [facility] Comment: Prealbumin levels are generally lower in the pediatric population; adult concentrations are usually attained near puberty. Blood specimen (specimen) 05/10/2017 5:20 PM EDT 05/10/2017 5:40 PM EDT Narrative Resulting Agency Comment Spec In Lab Mali Lakhani MD CHEMISTRY ORDERABLES [facility] [place] [address] documented in this encounter Visit Diagnoses Diagnosis Status post bilateral breast reconstruction Breast replaced by other means Abdominal wound dehiscence Disruption of wound, unspecified documented in this encounter Administered Medications Inactive Administered Medications - up to 3 most recent administrations Medication Order MAR Action Action Date Dose Rate Site acetaminophen (TYLENOL) tablet 1,000 mg 1,000 mg, Oral, EVERY 6 HOURS, First dose on Sun05/10/17 at 1745, Until Discontinued, Maximum dose of acetaminophen is 4000 mg from all sources in 24 hours., Routine Given 05/15/2017 12:27 PM EDT 1,000 mg Given 05/15/2017 5:39 AM EDT 1,000 mg Given 05/14/2017 1:49 PM EDT 1,000 mg acetaminophen (TYLENOL) tablet 650 mg 650 mg, Oral, EVERY 4 HOURS PRN, Starting on Sun05/10/17 at 1627, Until Sun05/10/17 at 1727, Pain, Maximum dose of acetaminophen is 4000 mg from all sources in 24 hours., Routine Given 05/10/2017 4:54 PM EDT 650 mg atorvastatin (LIPITOR) tablet 20 mg 20 mg, Oral, EVERY EVENING, First dose on Sun05/10/17 at 1700, Until Discontinued, Routine Given 05/14/2017 5:31 PM EDT 20 mg Given 05/13/2017 5:56 PM EDT 20 mg Given 05/12/2017 4:54 PM EDT 20 mg calcium carbonate (TUMS) chewable tablet 500 mg 500 mg, Oral, DAILY PRN, Starting on Sun05/15/17 at 1155, Until Sun05/15/17 at 1824, Heartburn, Routine Given 05/15/2017 12:38 PM EDT 500 mg Given 05/15/2017 12:26 PM EDT 500 mg clindamycin (CLEOCIN) 900mg in dextrose 5% 50mL 900 mg, Intravenous, EVERY 8 HOURS, 21 doses, First dose on Sosa 05/10/17 at 1645, Last dose on Sosa 05/17/17 at 1300, Administer over 30 Minutes, Do not exceed 30 mg/minute. *Beta-lactam based antibiotics (eg. Ampicillin, Cefazolin, Aztreonam) should be administered within 4 hours of the preceding intraoperative dose. *Vancomycin, Flouroquinolones, Clindamycin, Gentamicin, and Metronidazole should be administered within 8 hours of the preceding intraoperative dose., Recovery (Recovery-Hospital Unit), Indication for (Active or Suspected): Prophylaxis New Bag 05/15/2017 12:31 PM EDT 900 mg 100 mL /hr New Bag 05/15/2017 5:38 AM EDT 900 mg 100 mL/hr New Bag 05/14/2017 9:11 PM EDT 900 mg 100 mL/hr dilTIAZem (DILTIAZEM CD) ER capsule 240 mg 240 mg, Oral, DAILY, First dose on Sosa 05/10/17 at 1800, Until Discontinued, DO NOT CRUSH OR OPEN, Routine Given 05/14/2017 8:50 PM EDT 240 mg Given 05/13/2017 8:13 PM EDT 240 mg Given 05/12/2017 9:42 PM EDT 240 mg docusate sodium (COLACE) capsule 100 mg 100 mg, Oral, 2 TIMES DAILY, First dose on Sosa 05/10/17 at 2100, Until Discontinued, Routine Given 05/15/2017 9:29 AM EDT 100 mg Given 05/14/2017 8:48 PM EDT 100 mg Given 05/13/2017 8:13 PM EDT 100 mg fentaNYL (PF) 50 mcg/mL injection 1 dose, Starting on Sun05/11/17 at 1053, Until Sun05/11/17 at 1105, [address]: janice override fentaNYL 50 mcg/mL multi-dose injection 25-50 mcg, Intravenous, EVERY 5 MIN PRN, Starting on Sun05/11/17 at 1051, Until Sun05/11/17 at 1129, Pain, per unit protocol, - Start dose [...] and verbal order., Angio/IR (Intra-Procedure), Routine Given 05/11/2017 11:24 AM EDT 50 mcg Given 05/11/2017 11:15 AM EDT 50 mcg Given 05/11/2017 11:05 AM EDT 50 mcg fentaNYL 50 mcg/mL multi-dose injection 25-50 mcg, Intravenous, EVERY 5 MIN PRN, Starting on Sun05/14/17 at 1524, Until Sun05/14/17 at 1535, Pain, per unit protocol, - Start dose [...] and verbal order., Angio/IR (Intra-Procedure), Routine Given 05/14/2017 3:30 PM EDT 50 mcg Given 05/14/2017 3:20 PM EDT 50 mcg ferrous gluconate tablet 324 mg 324 mg, Oral, DAILY, First dose on Sosa 05/10/17 at 1645, Until Discontinued Given 05/14/2017 10:00 AM EDT 324 mg Given 05/13/2017 8:33 AM EDT 324 mg Given 05/12/2017 8:34 AM EDT 324 mg FLUoxetine (PROzac) capsule 40 mg 40 mg, Oral, DAILY, First dose on Sosa 05/10/17 at 1645, Until Discontinued, Routine Given 05/15/2017 9:28 AM EDT 40 mg Given 05/14/2017 10:00 AM EDT 40 mg Given 05/13/2017 8:32 AM EDT 40 mg hydroCHLOROthiazide (HYDRODIURIL) tablet 12.5 mg 12.5 mg, Oral, DAILY, First dose on Sosa 05/10/17 at 1800, Until Discontinued, Routine Given 05/14/2017 8:49 PM EDT 12.5 mg Given 05/13/2017 8:13 PM EDT 12.5 mg Given 05/12/2017 9:44 PM EDT 12.5 mg Lactobacillus (BACID) tablet 1 tablet 1 tablet, Oral, DAILY, First dose on Sosa 05/10/17 at 1645, Until Discontinued, Routine Given 05/15/2017 9:29 AM EDT 1 tablet Given 05/14/2017 10:00 AM EDT 1 tablet Given 05/13/2017 8:33 AM EDT 1 tablet levothyroxine (SYNTHROID) tablet 112 mcg 112 mcg, Oral, EVERY MORNING, First dose on Sun05/11/17 at 0600, Until Discontinued, Routine Given 05/15/2017 5:38 AM EDT 112 mcg Given 05/14/2017 6:01 AM EDT 112 mcg Given 05/13/2017 5:55 AM EDT 112 mcg lidocaine (XYLOCAINE) 10 mg/mL (1 %) injection 10 mg 10 mg, Subcutaneous, ONCE, 1 dose, On Sun05/11/17 at 1115, For use in Interventional Radiology (IR) only for procedure with direct provider supervision and verbal order., Angio/IR (Intra-Procedure), Routine Given 05/11/2017 11:15 AM EDT 10 mg midazolam (PF) (VERSED) 1 mg/mL injection 1 dose, Starting on Sun05/11/17 at 1053, Until Sun05/11/17 at 1105, [address]: janice override midazolam (PF) (VERSED) 1 mg/mL multi-dose injection 0.5-1 mg 0.5-1 mg, Intravenous, EVERY 3 MIN PRN, Starting on Sun05/11/17 at 1051, Until Sun05/11/17 at 1129, Sleep, - Start dose; 1 mg (Reduce [...] and verbal order., Angio/IR (Intra-Procedure), Routine Given 05/11/2017 11:25 AM EDT 1 mg Given 05/11/2017 11:15 AM EDT 1 mg Given 05/11/2017 11:05 AM EDT 1 mg ondansetron (ZOFRAN) injection 4 mg 4 mg, Intravenous, EVERY 8 HOURS PRN, Starting on Sosa 05/10/17 at 1627, Until 05/15/17 at 1824, Nausea, May repeat times one in 30 minutes if ineffective. If multiple antiemetics are ordered, use ondanstron first, Recovery (Recovery-Hospital Unit) ondansetron (ZOFRAN) tablet 4 mg 4 mg, Oral, EVERY 8 HOURS PRN, Starting on Sosa 05/10/17 at 1627, Until 05/15/17 at 1824, Nausea, Vomiting, If multiple antiemetics are ordered, use ondansetron first. PO Preferred. If patient unable to take PO, may give IV if ordered. May repeat times one in 45 minutes if ineffective., Recovery (Recovery-Hospital Unit), Routine Given 05/15/2017 12:26 PM EDT 4 mg Given 05/15/2017 5:42 AM EDT 4 mg Given 05/14/2017 1:49 PM EDT 4 mg oxyCODONE (ROXICODONE) immediate release tablet 5 mg 5 mg, Oral, EVERY 4 HOURS PRN, Starting on Sosa 05/10/17 at 1727, Until 05/15/17 at 1824, Pain, Routine Given 05/10/2017 5:51 PM EDT 5 mg potassium chloride (K-DUR/KLOR-CON) extended release tablet 20 mEq 20 mEq, Oral, 2 TIMES DAILY, First dose on Sosa 05/10/17 at 2300, Until Discontinued, 20 mEq tablet may be dissolved in water for administration, Routine Given 05/15/2017 9:29 AM EDT 20 mEq Given 05/14/2017 8:49 PM EDT 20 mEq Given 05/14/2017 10:00 AM EDT 20 mEq prochlorperazine (COMPAZINE) injection 10 mg 10 mg, Intravenous, EVERY 6 HOURS PRN, Starting on Sosa 05/10/17 at 1627, Until 05/15/17 at 1824, Nausea, Vomiting, If multiple antiemetics are ordered, use ondansetron first. If ondansetron ineffective use prochlorperazine. , Recovery (Recovery-Hospital Unit), Routine prochlorperazine (COMPAZINE) tablet 10 mg 10 mg, Oral, EVERY 6 HOURS PRN, Starting on Sosa 05/10/17 at 1627, Until Tu05/15/17 at 1824, Nausea, Vomiting, If multiple antiemetics are ordered, use ondansetron first. If ondansetron ineffective use prochlorperazine. PO Preferred. If patient unable to take PO, may give IV if ordered., Recovery (Recovery-Hospital Unit), Routine silver sulfADIAZINE (SILVADENE) 1 % cream Topical (Top), 2 TIMES DAILY, First dose on Sosa 05/10/17 at 2100, Until Discontinued, BID to umbilicus and nipples Completely wipe off before reapplying Given 05/15/2017 9:45 AM EDT Given 05/14/2017 9:10 PM EDT Given 05/14/2017 10:00 AM EDT sodium chloride 0.9 % flush 5 mL 5 mL, Intravenous, 2 TIMES DAILY, First dose on Sosa 05/10/17 at 2100, Until Discontinued, Recovery (Recovery[facility]Hospital Unit), Routine Given 05/15/2017 9:46 AM EDT 5 mLs Given 05/14/2017 9:10 PM EDT 5 mLs Given 05/14/2017 10:44 AM EDT 5 mLs valsartan (DIOVAN) tablet 160 mg 160 mg, Oral, DAILY, First dose on Sosa 05/10/17 at 1800, Until Discontinued, Routine Given 05/14/2017 8:48 PM EDT 160 mg Given 05/13/2017 8:13 PM EDT 160 mg Given 05/12/2017 9:44 PM EDT 160 mg documented in this encounter Active and Recently Administered Medications Times are shown in EDT. Scheduled Medication Order 05/13/2017 05/14/2017 05/15/2017 acetaminophen (TYLENOL) tablet 1,000 mg 1,000 mg, Oral, EVERY 6 HOURS, First dose on Sosa 05/10/17 at 1745, Until Discontinued, Maximum dose of acetaminophen is 4000 mg from all sources in 24 hours., Routine 0555 (Given - Provider: Ailyn Pruitt RN)1231 (Given - Provider: Rochelle Garcia)1755 (Given - Provider: Rochelle Garcia) 0039 (Given - Provider: Elisa Hagen RN)0601 (Given - Provider: Elisa Hagen RN)1349 (Given - Provider: Darcy García RN - Comment: moved per patient request)1745 (Not Given - Provider: Darcy Garcaí RN - Reason: Patient/family refused)2345 (Not Given - Provider: Kristal Alberto RN - Reason: Patient/family refused) 0539 (Given - Provider: Kristal Alberto RN)1227 (Given - Provider: Lucina Allred RN) atorvastatin (LIPITOR) tablet 20 mg 20 mg, Oral, EVERY EVENING, First dose on Sosa 05/10/17 at 1700, Until Discontinued, Routine 1756 (Given - Provider: Rochelle Garcia) 1731 (Given - Provider: Darcy García RN) clindamycin (CLEOCIN) 900mg in dextrose 5% 50mL 900 mg, Intravenous, EVERY 8 HOURS, 21 doses, First dose on Sosa 05/10/17 at 1645, Last dose on Sosa 05/17/17 at 1300, Administer over 30 Minutes, Do not exceed 30 mg/minute. *Beta-lactam based antibiotics (eg. Ampicillin, Cefazolin, Aztreonam) should be administered within 4 hours of the preceding intraoperative dose. *Vancomycin, Flouroquinolones, Clindamycin, Gentamicin, and Metronidazole should be administered within 8 hours of the preceding intraoperative dose., Recovery (Recovery-Hospital Unit), Indication for (Active or Suspected): Prophylaxis 0556 (New Bag - Provider: Ailyn Pruitt RN)0626 (Stopped - Provider: Milagro Pollard RN)1340 (New Bag - Provider: Milagro Pollard RN)1410 (Stopped - Provider: Milagro Pollard, JENNYFER)2012 (New Bag - Provider: Elisa Hagen RN)2042 (Stopped - Provider: Elisa Hagen RN) 0600 (New Bag - Provider: Elisa Hagen RN)0630 (Stopped - Provider: Darcy García RN)1349 (New Bag - Provider: Darcy García RN)141 (Stopped - Provider: Darcy García RN)211 (New Bag - Provider: Kristal Alberto RN)214 (Stopped - Provider: Kristal Alberto RN) 0538 (New Bag - Provider: Kristal Alberto RN)0608 (Stopped - Provider: Lucina Allred RN)1231 (New Bag - Provider: Lucina Allred RN)1301 (Stopped - Provider: Lucina Allred RN) dilTIAZem (DILTIAZEM CD) ER capsule 240 mg 240 mg, Oral, DAILY, First dose on Sosa 05/10/17 at 1800, Until Discontinued, DO NOT CRUSH OR OPEN, Routine 2012 (Given - Provider: Elisa Hagen RN) 2049 (Given - Provider: Kristal Alberto RN) docusate sodium (COLACE) capsule 100 mg 100 mg, Oral, 2 TIMES DAILY, First dose on Sosa 05/10/17 at 2100, Until Discontinued, Routine 0834 (Given - Provider: Milagro Pollard RN)2012 (Given - Provider: Elisa Hagen RN) 09 (Not Given - Provider: Darcy García RN - Reason: Patient/family refused)2047 (Given - Provider: Kristal Alberto RN) 09 (Given - Provider: Lucian Allred, JENNYFER) ferrous gluconate tablet 324 mg 324 mg, Oral, DAILY, First dose on Sosa 05/10/17 at 1645, Until Discontinued 0833 (Given - Provider: Milagro Pollard RN) 1000 (Given - Provider: aDrcy García, JENNYFER) 0900 (Not Given - Provider: Lucina Allred RN - Reason: Patient/family refused) FLUoxetine (PROzac) capsule 40 mg 40 mg, Oral, DAILY, First dose on Sosa 05/10/17 at 1645, Until Discontinued, Routine 0832 (Given - Provider: Milagro Pollard RN) 1000 (Given - Provider: Darcy García RN) 0928 (Given - Provider: Lucina Allred RN) hydroCHLOROthiazide (HYDRODIURIL) tablet 12.5 mg(Linked Group 1) 12.5 mg, Oral, DAILY, First dose on Sosa 18 at 1800, Until Discontinued, Routine 2012 (Given - Provider: Elisa Hagen RN) 2048 (Given - Provider: Kristal Alberto RN) Lactobacillus (BACID) tablet 1 tablet 1 tablet, Oral, DAILY, First dose on Sun05/10/17 at 1645, Until Discontinued, Routine 0833 (Given - Provider: Milagro Pollard RN) 999 (Given - Provider: Darcy García RN) 09 (Given - Provider: Lucina Allred RN) levothyroxine (SYNTHROID) tablet 112 mcg 112 mcg, Oral, EVERY MORNING, First dose on Sun05/11/17 at 0600, Until Discontinued, Routine 0555 (Given - Provider: Ailyn Pruitt RN) 0601 (Given - Provider: Elisa Hagen RN) 0538 (Given - Provider: Kristal Alberto RN) norethindrone (AYGESTIN) tablet 5 mg 5 mg, Oral, DAILY, First dose on Sun05/10/17 at 1800, Until Discontinued, Routine 0835 (Not Given - Provider: Milagro Pollard RN - Reason: Patient/family refused) 0900 (Not Given - Provider: Darcy García RN - Reason: Patient/family refused) 0900 (Not Given - Provider: Lucina Allred RN - Reason: Patient/family refused) potassium chloride (K-DUR/KLOR-CON) extended release tablet 20 mEq 20 mEq, Oral, 2 TIMES DAILY, First dose on Sun05/10/17 at 2300, Until Discontinued, 20 mEq tablet may be dissolved in water for administration, Routine 0900 (Given - Provider: Milagro Pollard RN)2012 (Given - Provider: Elisa Hagen RN) 999 (Given - Provider: Darcy García RN)2048 (Given - Provider: Kristal Alberto RN) 09 (Given - Provider: Lucina Allred RN) silver sulfADIAZINE (SILVADENE) 1 % cream Topical (Top), 2 TIMES DAILY, First dose on Sun05/10/17 at 2100, Until Discontinued, BID to umbilicus and nipples Completely wipe off before reapplying 0837 (Given - Provider: Milagro Pollard, JENNYFER)2147 (Given - Provider: Elisa Hagen, JENNYFER) 1000 (Given - Provider: Darcy García, JENNYFER)2109 (Given - Provider: Kristal Alberto RN) 0945 (Given - Provider: Lucina Allred, JENNYFER) sodium chloride 0.9 % flush 5 mL 5 mL, Intravenous, 2 TIMES DAILY, First dose on Sosa 05/10/17 at 2100, Until Discontinued, Recovery (Recovery-Hospital Unit), Routine 0837 (Given - Provider: Milagro Pollard RN)2013 (Given - Provider: Elisa Hagen RN) 1044 (Given - Provider: Darcy García RN)2109 (Given - Provider: Kristal Alberto RN) 0946 (Given - Provider: Lucina Allred RN) valsartan (DIOVAN) tablet 160 mg(Linked Group 1) 160 mg, Oral, DAILY, First dose on Sosa 05/10/17 at 1800, Until Discontinued, Routine 2012 (Given - Provider: Elisa Hagen RN) 2047 (Given - Provider: Kristal Alberto RN) PRN Medication Order 05/13/2017 05/14/2017 05/15/2017 bisacodyl (DULCOLAX) suppository 10 mg 10 mg, Rectal, DAILY PRN, Starting on Sosa 05/10/17 at 1627, Until 05/15/17 at 1824, Constipation, Administer if needed per patient's routine or if no bowel movement within 48 hours to achieve: (1) One bowel movement at least every 48 hours, AND (2) Without straining. - If multiple PRN bowel medications ordered, start with magnesium hydroxide, then bisacodyl. - Multiple medications may be given concomitantly for constipation., Routine calcium carbonate (TUMS) chewable tablet 500 mg 500 mg, Oral, DAILY PRN, Starting on 05/15/17 at 1155, Until 05/15/17 at 1824, Heartburn, Routine 1226 (Given - Provid er: Lucina Allred RN)1238 (Given - Provider: Lucina Allred RN - Comment: Given with OK from STEVAN) fentaNYL 50 mcg/mL multi-dose injection (CANCELED) 25-50 mcg, Intravenous, EVERY 5 MIN PRN, Starting on 05/14/17 at 1524, Until 05/14/17 at 1535, Pain, per unit protocol, - Start dose [...] supervision and verbal order., Angio/IR (Intra-Procedure), Routine 1520 (Given - Provider: Jazmyn Burrell RN)1530 (Given - Provider: Jazmyn Burrell RN) lidocaine (XYLOCAINE) 10 mg/mL (1 %) injection 3 mg 3 mg (0.3 mL), Subcutaneous, ONCE PRN, 1 dose, Starting on Sosa 05/10/17 at 1627, Until 05/15/17 at 1824, for discomfort with PIV insertion, Recovery (Recovery-Hospital Unit), Routine ondansetron (ZOFRAN) injection 4 mg(Linked Group 2) 4 mg, Intravenous, EVERY 8 HOURS PRN, Starting on Sosa 05/10/17 at 1627, Until 05/15/17 at 1824, Nausea, May repeat times one in 30 minutes if ineffective. If multiple antiemetics are ordered, use ondanstron first, Recovery (Recovery-Hospital Unit) 1349 (See Alternative - Provider: Darcy García RN) 0542 (See Alternative - Provider: Kristal Alberto RN)1226 (See Alternative - Provider: Lucina Allred, JENNYFER) ondansetron (ZOFRAN) tablet 4 mg(Linked Group 2) 4 mg, Oral, EVERY 8 HOURS PRN, Starting on Sosa 05/10/17 at 1627, Until 05/15/17 at 1824, Nausea, Vomiting, If multiple antiemetics are ordered, use ondansetron first. PO Preferred. If patient unable to take PO, may give IV if ordered. May repeat times one in 45 minutes if ineffective., Recovery (Recovery[facility]Hospital Unit), Routine 1349 (Given - Provider: Darcy García, JENNYFER) 0542 (Given - Provider: Kristal Alberto RN)1226 (Given - Provider: Lucina Allred, JENNYFER - Comment: ppx for nausea with ABX dose) oxyCODONE (ROXICODONE) immediate release tablet 5 mg 5 mg, Oral, EVERY 4 HOURS PRN, Starting on Sosa 05/10/17 at 1727, Until 05/15/17 at 1824, Pain, Routine prochlorperazine (COMPAZINE) injection 10 mg(Linked Group 3) 10 mg, Intravenous, EVERY 6 HOURS PRN, Starting on Sosa 05/10/17 at 1627, Until 05/15/17 at 1824, Nausea, Vomiting, If multiple antiemetics are ordered, use ondansetron first. If ondansetron ineffective use prochlorperazine. , Recovery (Recovery-Hospital Unit), Routine prochlorperazine (COMPAZINE) tablet 10 mg(Linked Group 3) 10 mg, Oral, EVERY 6 HOURS PRN, Starting on Sosa 05/10/17 at 1627, Until 05/15/17 at 1824, Nausea, Vomiting, If multiple antiemetics are ordered, use ondansetron first. If ondansetron ineffective use prochlorperazine. PO Preferred. If patient unable to take PO, may give IV if ordered., Recovery (Recovery[facility]Hospital Unit), Routine sodium chloride 0.9 % flush 5-20 mL 5-20 mL, Intravenous, EVERY 1 MIN PRN, Starting on Sosa 05/10/17 at 1627, Until 05/15/17 at 1824, flush, Flush pertains to all indwelling lines. Flush per protocol found in the job aid using the link provided on this medication record., Recovery (Recovery[facility]ospital Unit), Routine Linked Groups Order Group 1: valsartan (DIOVAN) tablet 160 mgJump to med 160 mg, Oral, DAILY, First dose on Sosa 05/10/17 at 1800, Until Discontinued, Routine And hydroCHLOROthiazide (HYDRODIURIL) tablet 12.5 mgJump to med 12.5 mg, Oral, DAILY, First dose on Sosa 05/10/17 at 1800, Until Discontinued, Routine Group 2: ondansetron (ZOFRAN) tablet 4 mgJump to med 4 mg, Oral, EVERY 8 HOURS PRN, Starting on Sosa 05/10/17 at 1627, Until 05/15/17 at 1824, Nausea, Vomiting, If multiple antiemetics are ordered, use ondansetron first. PO Preferred. If patient unable to take PO, may give IV if ordered. May repeat times one in 45 minutes if ineffective., Recovery (Rec[facility]ospital Unit), Routine Or ondansetron (ZOFRAN) injection 4 mgJump to med 4 mg, Intravenous, EVERY 8 HOURS PRN, Starting on Sosa 05/10/17 at 1627, Until 05/15/17 at 1824, Nausea, May repeat times one in 30 minutes if ineffective. If multiple antiemetics are ordered, use ondanstron first, Recovery (Recovery- Hospital Unit) Group 3: prochlorperazine (COMPAZINE) tablet 10 mgJump to med 10 mg, Oral, EVERY 6 HOURS PRN, Starting on Sosa 05/10/17 at 1627, Until 05/15/17 at 1824, Nausea, Vomiting, If multiple antiemetics are ordered, use ondansetron first. If ondansetron ineffective use prochlorperazine. PO Preferred. If patient unable to take PO, may give IV if ordered., Recovery (Recovery[facility]ospital Unit), Routine Or prochlorperazine (COMPAZINE) injection 10 mgJump to med 10 mg, Intravenous, EVERY 6 HOURS PRN, Starting on Sosa 05/10/17 at 1627, Until 05/15/17 at 1824, Nausea, Vomiting, If multiple antiemetics are ordered, use ondansetron first. If ondansetron ineffective use prochlorperazine. , Recovery (Recovery-Hospital Unit), Routine documented in this encounter Care Teams Quality Assurance Lead Relationship Specialty Start Date End Date Trinh Coates MD [facility] [place] [address] [address] PCP - General 01/11/10 documented as of this encounter
--- OUTSIDE RECORDS SUMMARY | 2023-09-07 11:33 | XMS_ITS | Encounter Summary ---
[place] [address] Care Team Providers Care Rehabilitation Coordinator Name Role Phone Trinh Coates MD Primary Care Provider [phone] Encounter Details Date Type Department Care Team (Late st Contact Info) Description 06/01/2017 Telephone [place] [phone] Gayatri Okeefe Social History Tobacco Use Types Packs/Day Years [...] encounter Miscellaneous Notes * Telephone Encounter - Gayatri Okeefe - 06/01/2017 8:28 AM EDT Age at diagnosis: 57 Date of diagnosis: March 21, 2017 Place of diagnosis: Internal Date of initial appointment: 03/29/17 Surgeon: Gemma Referral to Medical Oncology: Yes, Internal Medical Oncologist:Nakul Referral to Radiation Oncology:Yes Internal Radiation Oncologist: Steph Referral to Plastic Surgery: Yes documented in this encounter Plan of Treatment Upcoming Encounters Date Type Department Care Team (Late st Contact Info) Description 01/22/2024 10:30 AM EST Appointment Mammography/[place] [phone] Ladi Mendosa MD [facility] HEMATOLOGY/[place] [address] 01/30/2024 11:30 AM EST Office Visit Dermatology at [facility] [address] [place] [phone] Nilda Luis MD [facility] [address] [address] 02/15/2024 9:30 AM EST Appointment Radiology at [place] [phone] [place] [address] documented as of this encounter Visit Diagnoses Not on filedocumented in this encounter Care Teams Rehabilitation Coordinator Relationship Specialty Start Date End Date Trinh Coates MD [facility] [address] [place] [address] PCP - General 01/11/10 documented as of this encounter
--- OUTSIDE RECORDS SUMMARY | 2023-09-07 11:33 | XMS_ITS | Encounter Summary ---
Author Organization [facility] [place] [address] Care Team Providers Care Photographic Laboratory Supervisor Name Role Phone Trinh Coates MD Primary Care Provider [phone] Reason for Referral * Diagnostic Test (Emergency) - Closed Specialty Diagnoses / Procedures Referred By Diamante t Referred To Contact Radiology Diagnoses Surgery follow-up Procedures CTA Chest for Pulmonary Embolus w Contrast Jolene Azevedo APRN [facility] [place] [address] [facility] [place] [address] Referral ID Status Reason Start Date Expiration Date V isits Requested Visits Authorized [id number] Closed Specialty Service Requested 05/10/2017 06/24/2017 1 1 Reason for Visit * Auth/Cert Specialty Diagnoses / Procedures Referred By Diamante t Referred To Contact Diagnoses Abdominal wound dehiscence, initial encounter INFECTION Procedures ELA IPI Referral ID Status Reason Start Date Expiration Date Visits Re quested Visits Authorized [id number] 1 1 Encounter Details Date Type Department Care Team (Latest Contact Info) Description 05/10/2017 12:21 PM EDT - 05/10/2017 3:02 PM EDT Hospital [place] [phone] Jolene Azevedo APRN [facility] [place] [address] Surgery follow-up Discharge Disposition: Home Social History [...] DR tablet 1 CAP daily 03/27/2014 024 clindamycin (CLEOCIN) 300 mg Capsule Take 1 capsule by mouth 3 times daily for 7 days. 21 capsule 05/15/2017 05/22/2017 silver sulfADIAZINE (SILVADENE) 1 % Cream Apply topically 2 times daily. 50 g 05/15/2017 05/15/2017 silver sulfADIAZINE (SILVADENE) 1 % Cream Apply topically 2 times daily. 50 g 05/15/2017 07/03/2017 ondansetron (ZOFRAN) 4 mg Tablet Take 1 tablet by mouth every 8 hours as needed for Nausea. 20 tablet 05/15/2017 05/15/2017 ondansetron (ZOFRAN) 4 mg Tablet Take 1 tablet by mouth every 8 hours as needed for Nausea. 20 tablet 05/15/2017 05/25/2017 cephalexin (KEFLEX) 500 mg Capsule Take 1 [...] 01/22/2024 10:30 AM EST Appointment Mammography/[place] [address] Ladi Mendosa MD [facility] DR HEMATOLOGY/[place] [address] 01/30/2024 11:30 AM EST Office Visit Dermatology at [facility] [address] [place] [phone] Nilda Luis MD [facility] [address] [address] 02/15/2024 9:30 AM EST [place] [phone] [place] [address] documented as of this encounter Procedures Procedure Name Priority Date/Time Associated Diagnosis Comments CT CHEST PULMONARY EMBOLISM W CONTRAST STAT 05/10/2017 1:05 PM EDT Surgery follow-up documented in this encounter Results * CTA Chest for Pulmonary Embolus w [...] laboratory signs of infection/inflammation. Jolene Azevedo APRN [facility] ORDERABLES documented in this encounter Visit Diagnoses Diagnosis Surgery follow-up Follow-up examination, following unspecified surgery documented in this encounter Administered Medications Inactive Administered Medications - up to 3 most recent administrations Medication Order MAR Action Action Date Dose Rate Site iohexol (OMNIPAQUE) 350 mg/mL solution 0-200 mL 0-200 mL, Intravenous, ONCE PRN, 1 dose, Starting on Sosa 05/10/17 at 1244, Until Sosa 05/10/17 at 1305, Per Protocol, Warning Vesicant/Irritant Medication , Radiology Contrast, Routine Given 05/10/2017 1:05 PM EDT 53 mLs documented in this encounter Care Teams Photographic Laboratory Supervisor Relationship Specialty Start Date End Date Trinh Coates MD [address] [place] [address] PCP - General 01/11/10 documented as of this encounter
--- OUTSIDE RECORDS SUMMARY | 2023-09-07 11:33 | XMS_ITS | Encounter Summary ---
Author Organization [facility] Address [facility] [place] [address] Care Team Providers Care Shirt Folding Machine Operator Name Role Phone Trinh Coates MD Primary Care Provider [phone] Reason for Visit * Reason Comments Chemotherapy Teaching Encounter Details Date Type Department Care Team (Late st Contact Info) Description 06/01/2017 11:00 AM EDT Office Visit Hematology [place] [address] Sally Ren APRN [facility] [place] [address] Malignant neoplasm of upper-outer quadrant of left [...] Sign Reading Time Taken Comments Blood Pressure 152/90 06/01/2017 11:02 AM EDT Pulse 72 06/01/2017 11:02 AM EDT Temperature 37.1 ??C (98.8 ??F) 06/01/2017 11:02 AM E DT Respiratory Rate 18 06/01/2017 11:02 AM EDT Oxygen Saturation 99% 06/01/2017 11:02 AM EDT Inhaled Oxygen Concentration - - Weight 76 kg (167 lb 9.6 oz) 06/01/2017 11:02 AM EDT Height 155.2 cm (5' 1.1) 06/01/2017 11:02 AM ED T Body Mass Index 31.56 06/01/2017 11:02 AM EDT documented in this encounter Progress Notes * Sally Ren Haylee, PANEL ASSEMBLER - 06/01/2017 11:00 AM EDT PATIENT ID: Wendy Sandoval is a 51 y.o. with ER+/DE+/Her2- node positive left breast cancer who presents today for chemotherapy teaching and is accompanied by her . The plan is for dose dense intravenous chemotherapy given every 2 weeks for a total of 8 cycles. The following information was reviewed with the patient and family. Antitumor Therapy Schedule: Doxorubicin (adriamycin) and Cyclophosphamide (cytoxan) every 2 weeks for 4 cycles Followed by Paclitaxel (taxol) every 2 weeks for 4 cycles Laboratory Tests: Prior to every cycle Wendy will have a complete metabolic panel (CMP) and complete blood count (CBC) with differential drawn. Provider Visits: Wendy will see either her physician or nurse practitioner prior to every cycle Possible Side Effects include, but are not limited to: ??? Doxorubicin (Adriamycin): The most common potential side effects include: Decrease in blood counts (decrease in white blood cells, red blood cells and platelets, resulting in increased risk of infection, anemia and bleeding), nausea/vomiting, hair loss, temporary red discoloration of urine. Less common side effects include mouth sores, damage to the heart, secondary malignancies ??? Cyclophosphamide (Cytoxan): The most common potential side effects include: Hair loss, nausea/vomiting, diarrhea, decrease in blood counts, infertility, changes in skin or nails, and fatigue. Less common side effects include a risk of developing a blood cancer such as leukemia, bladder irritation with high doses and mucositis. ??? Paclitaxel (Taxol): The most common potential side effects include: Decrease in blood counts (decrease in white blood cells, red blood cells and platelets, resulting in increased risk of infection, anemia and bleeding), numbness and tingling in the hands and feet, infusion reactions, nausea/vomiting, hair loss, diarrhea. Less common side effects include rash, muscle aches. Medications: the following prescriptions should be picked up before starting treatment ??? Prochlorperazine (compazine) 1 tablet (10 mg) every 6-8 hours as needed ??? Lorazepam (ativan) 1 tablet (0.5 mg) every 4-6 hours as needed Plan: Wendy Sandoval was given written information regarding chemotherapy regimen, side effects and management strategies. In addition the [facility] DVD was viewed. She was given an opportunity to ask questions and verbalized understanding of the information and treatment plan. No barriers to learning were identified. She was counseled on how to call for any further questions or concerns. ??? Chemotherapy is scheduled to begin on 06/08/17 ??? Testing/Diagnostics o Baseline blood work will be done on day 1 of cycle 1 o An echocardiogram is scheduled for today ??? Supportive Care: o To reduce the risk of neutropenia, she will need injections of neulasta given the day following chemotherapy. Neulasta may cause skeletal pain for several days after each injection. Claritin (loratadine) may be helpful in alleviating neulasta related bone pain. She may take 10 mg starting before her injection and continue to take daily for 5-7 days. - Neulasta will be arranged at [facility]. o Antiemetics were reviewed with Wendy and she understands how and when to take the medications prescribed ??? Fertility: safe sexual practices reviewed ??? Smoking cessation: non smoker ??? Advance Directives: A copy of the Advanced Directive was given to the patient. Will refer to social work to assist with completion ??? Psychosocial: ??? Distress Screening: Baseline assessment performed today. .distress ??? Follow up: Return to clinic on 06/08/17 60 of this 60 minute face to face encounter was spent in counseling, education and coordination of care. documented in this encounter Plan of Treatment Upcoming Encounters Date Type Department Care Team (Late st Contact Info) Description 01/22/2024 10:30 AM EST Appointment Mammography/[place] [address] Ladi Mendosa MD [facility] DR HEMATOLOGY/[place] [address] 01/30/2024 11:30 AM EST Office Visit Dermatology at [facility] [address] [place] [address] Nilda Luis MD [facility] [address] [place] [address] 02/15/2024 9:30 AM EST [place] [address] [place] [address] documented as of this encounter Visit Diagnoses Diagnosis Malignant neoplasm of upper-outer quadrant of left breast in female, estrogen receptor positive documented in this encounter Care Teams Shirt Folding Machine Operator Relationship Specialty Start Date End Date Trinh Coates MD [facility] [address] [place] [address] PCP - General 01/11/10 documented as of this encounter
--- OUTSIDE RECORDS SUMMARY | 2023-09-07 11:33 | XMS_ITS | Encounter Summary ---
Author Organization [facility] Address [facility] [place] [address] Care Team Providers Care Valuer Name Role Phone Trinh Coates MD Primary Care Provider [phone] Encounter Details Date Type Department Care Team (Late st Contact Info) Description 05/21/2017 Notes Only Care Management [facility] [place] [phone] Gail Yo MSW Social History Tobacco Use Types Packs/Day Years Used Date Smoking Tobacco: Former Smokeless Tobacco: Never Alcohol Use Standard Drinks/Week Comments Yes 0 (1 standard drink = 0.6 oz pur e alcohol) socially Sex and Gender Information Value Date Recorded Sex Assigned at Not on file Gender Identity Not on file Sexual Orientation Not on file documented as of this encounter Progress Notes * Gail Yo MSW - 05/21/2017 11:59 PM EDT CCM met with pt after her medical oncology consult with Dr. Mota. Pt was tearful stating, I knew chemotherapy was going to be recommended but to have the doctor confirm it (was upsetting). Pt had bilateral mastectomies followed by SALVADOR breast reconstruction. Unfortunately, pt has had complications with her breast reconstruction and needed to be admitted. Her wounds will need to heal before she can start her chemo treatments but she is anxious to start this therapy. Pt is aware that appts will be made for her to have a port placement and chemo education. I gave pt a gift bag and addressedher questions and encouraged her to contact me with any additional concerns. P- CCM will continue to provide support and resources to pt. documented in this encounter Plan of Treatment Upcoming Encounters Date Type Department Care Team (Late st Contact Info) Description 01/22/2024 10:30 AM EST Appointment Mammography/[place] [phone] Ladi Mendosa MD [facility] HEMATOLOGY/[place] [address] 01/30/2024 11:30 AM EST Office Visit Dermatology at [facility] [address] [place] [phone] Nilda Luis MD [facility] DR LIDIA [place] [address] 02/15/2024 9:30 AM EST [place] [phone] [place] [address] documented as of this encounter Visit Diagnoses Not on filedocumented in this encounter Care Teams Valuer Relationship Specialty Start Date End Date Trinh Coates MD [facility] [address] [place] [address] PCP - General 01/11/10 documented as of this encounter
--- OUTSIDE RECORDS SUMMARY | 2023-09-07 11:33 | XMS_ITS | Encounter Summary ---
Author Organization [facility] [place] [address] Care Team Providers Care Slate Roofer Helper Name Role Phone Trinh Coates MD Primary Care Provider [phone] Reason for Referral * Diagnostic Test (Routine) - Closed Specialty Diagnoses / Procedures Referred By Contac t Referred To Contact Radiology Diagnoses Malignant neoplasm of left female breast, unspecified estrogen receptor status, unspecified site of breast Procedures IR Drain Check/Change/Remove Christy Keenan MD [facility] [place] [address] [facility] [place] [address] Referral ID Status Reason Start Date Expiration Date V isits Requested Visits Authorized [id number] Closed Specialty Service Requested 05/15/2017 05/15/2018 1 1 Reason for Visit * Diagnostic Test (Routine) - Closed Specialty Diagnoses / Procedures Referred By Contac t Referred To Contact Radiology Diagnoses Malignant neoplasm of left female breast, unspecified estrogen receptor status, unspecified site of breast Procedures IR Drain Check/Change/Remove Christy Keenan MD [facility] [place] [address] [facility] [place] [address] Referral ID Status Reason Start Date Expiration Date V isits Requested Visits Authorized [id number] Closed Specialty Service Requested 05/15/2017 05/15/2018 1 1 Encounter Details Date Type Department Care Team (Latest Contact Info) Description 05/25/2017 10:47 AM EDT - 05/25/2017 11:59 PM EDT Hospital Encounter [place] [phone] Flip Paulson MD [facility] [place] [address] Malignant neoplasm of left female breast, unspecified [...] Sign Reading Time Taken Comments Blood Pressure 159/101 05/25/2017 1:00 PM EDT Pulse 72 05/25/2017 1:00 PM EDT Temperature - - Respiratory Rate 22 05/25/2017 1:00 PM EDT Oxygen Saturation 94% 05/25/2017 1:05 PM EDT Inhaled Oxygen Concentration - - [...] as of this encounter Progress Notes * Christy Keenan MD - 05/24/2017 4:28 PM EDT Images from the original note were not included. INTERVENTIONAL RADIOLOGY FOCUSED H&P and PRE-PROCEDURE NOTE: PCP: Trinh Coates MD Referring Provider: Christy Y Shlomo Planned Procedure: 1. Right breast drain check #1 2. Left axillary drain check #1 Procedure Indication: 1. Right breast drain placement after the bilateral breast reconstruction after mastectomy (04/26/17), which was partially dislodged and replaced on 04/30 2. Left axillary drain placement s/p recurrent left axillary fluid collection on 05/14 Presenting Diagnosis/ Complaint: Wendy Arriaga is a 51 y.o. female with breast CA to the left. Pt underwent bilateral breast reconstruction after mastectomy with SALVADOR flaps (04/26/17); ??complicated by intraoperative demise followed by Tissue Hoop Machine Operator placement. Patient had a RIGHT breast insitu with large volume output. The drain became partially dislodged, IR placed a new drain on 04/30 via the existing tract. Patient presented to clinic on 05/11 with fevers, malaise, fatigue and was found tohave a LEFT??axillary fluid collection. IR aspirated 45 cc of clear serous fliud on 05/11 with traceamount of fluid remaining. Patient had increased axilla swelling and fluid collection on repeat US on 05/14, IR subsequently placed a drain in the collection. Patient is now presenting for two drain checks: right breast drain and left axillary drain. Past Medical/Surgical History: Patient Active Problem List Diagnosis Code ??? Hypertension I10 ??? Depression F32.9 ??? Obstructive sleep apnea (adult) (pediatric) G47.33 ??? OA (osteoarthritis) M19.90 ??? Overweight(278.02) E66.3 ??? Hyperparathyroidism E21.3 ??? Malignant neoplasm of upper-outer quadrant of left breast in female, estrogen receptor nasdxoiiH77.412, Z17.0 ??? Status post bilateral breast reconstruction [...] LARYNGEAL performed by Valentina Lucas MD at [facility] OR ??? PRO BREAST RECONSTRUC W FREE FLAP Bilateral 04/26/2017 @BREAST RECONSTRUCTION W/ FREE FLAP, SUSAN (WRVU 42.58) performed by Andre Gimenez MD at [facility] ??? PRO BREAST RECONSTRUC W TISS EXPANDR Bilateral 04/26/2017 BREAST RECONSTRUCTION, IMMEDIATE OR DELAYED, W/ TISSUE MOTTLER MACHINE FEEDER, INCLUDING SUBSEQUENT EXPANSION (WRVU 18.5) performed by Andre Gimenez MD at [facility] OR ??? PRO EXPLORE PARATHYROID GLANDS N/A 11/02/2015 PARATHYROIDECTOMY OR EXPLORATION OF PARATHYROID(S) performed by Valentina Lucas MD at [facility] OR ? ? PRO FULL THICK GRFT TRUNK <20 SQCM Bilateral 04/26/2017 FTSG, FREE, DIR CLOSE DONOR SITE, TRUNK, 20 SQ CM OR LESS (WRVU 9.15) performed by Andre Gimenez MD at [facility] OR ??? PRO MASTECTOMY, SIMPLE, COMPLETE Bilateral 04/26/2017 MASTECTOMY, SIMPLE, COMPLETE-SUSAN (WRVU 15.85) performed by Jolie Menendez MD at [facility] OR ??? PRO PARTIAL REMOVAL OF RIB Bilateral 04/26/2017 EXCISION OF RIB, PARTIAL (WRVU 7.26) performed by Andre Gimenez MD at [facility] OR ??? PRO REMOVE ARMPITS LYMPH NODES COMPLT Left 04/26/2017 LYMPHADENECTOMY, AXILLARY, COMPLETE (WRVU 13.87) performed by Jolie Menendez MD at [facility] OR ??? PRO THYMECTOMY, TRANSCERVICAL N/A 11/02/2015 THYMECTOMY, TRANSCERVICAL APPROACH performed by Valentina Lucas MD at [facility] OR ??? SHOULDER SURGERY Left ??? UMBILICAL HERNIA REPAIR Medications: Current Outpatient Prescriptions on File Prior to Encounter Medication Sig Dispense Refill ??? silver sulfADIAZINE (SILVADENE) 1 % Cream Apply topically 2 times daily. 50 g 0 ??? Lactobacillus (BACID) 0.5 [...] mEq extended release tablet 2 times daily. ??? ondansetron (ZOFRAN) 4 mg Tablet Take 1 tablet by mouth every 8 hours as needed for Nausea. 20 tablet 0 ??? acetaminophen (TYLENOL) 325 mg Tablet Take 2 tablets by mouth every 4 hours as needed for Pain. ??? norethindrone (AYGESTIN) 5 mg Tablet Take 1 tablet by mouth daily. No current facility-administered medications [...] 03/29/2017 ALT 21 03/29/2017 PROT 6.6 03/29/2017 Imagin/26:US guided drain placement in left axillary fluid collection 04/30: Right breast drain via existing tract Physical Exam: Pending (to be performed in angio the day of procedure) ASA: Pending (to be assessed in angio the day of procedure) Mallampati Class: Pending (to be assessed in angio the day of procedure) Assessment: 51 y.o. female with breast CA to the left. Pt underwent bilateral breast reconstructionafter mastectomy with SALVADOR flaps (04/26/17); ??complicated by intraoperative demise followed by Tissue Hoop Machine Operator placement. Patient had a RIGHT breast insitu [...] 05/14, IR subsequently placed a drain in th e collection. Will proceed with two drain checks: right breast drain and left axillary drain. Plan: Two drain checks: right breast drain and left axillary drain. Labs to be performed day of procedure: none Medication to STOP: none Sedation: minimal (single agent only) Prophylactic antibiotic: none Additional medications for procedure: lidocaine jelly Planned access site: as above Position: supine Consent: Pending 05/24/2017 * Alejandra Valencia RN - 05/23/2017 4:03 PM EDT ANGIO NURSING DATABASE Name: WENDY ARRIAGA Date of : 1965 AGE 51 y.o. [address]: [address] [place] [phone] (home) [phone] (work) Mobile: Telephone Information: Referring Provider: Christy Keenan REASON FOR VISIT: Order Questions Question Answer Where will study be performed? [facility] Reason for exam and clinical history: left axillary drain placement (05/14) s/p bilateral mastectomyin setting of left breast CA Exam/Procedure requested: IR drain check Is the patient ? Unknown Is the [...] of left breast in female, estrogen receptor zqhvjzofX03.412, Z17.0 ??? Status post bilateral breast reconstruction Z98.890 ??? Surgery follow-up Z09 ??? Abdominal wound dehiscence T81.30XA Pertinent PSH: Past Surgical History: Procedure Laterality Date ??? BREAST BIOPSY Right 11/01 ??? SECTION x 2 ??? HAND SURGERY Right ??? PRG EMG, LARYNX N/A 11/02/2015 FACIAL NERVE MONITORING, SETUP LARYNGEAL performed by Valentina Lucas MD at [facility] OR ??? PRO BREAST RECONSTRUC W FREE FLAP Bilateral 04/26/2017 @BREAST RECONSTRUCTION W/ FREE FLAP, SUSAN (WRVU 42.58) performed by Andre Gimenez MD at [facility] ??? PRO BREAST RECONSTRUC W TISS EXPANDR Bilateral 04/26/2017 BREAST RECONSTRUCTION, IMMEDIATE OR DELAYED, W/ TISSUE MOTTLER MACHINE FEEDER, INCLUDING SUBSEQUENT EXPANSION (WRVU 18.5) performed by Andre Gimenez MD at [facility] OR ??? PRO EXPLORE PARATHYROID GLANDS N/A 11/02/2015 PARATHYROIDECTOMY OR EXPLORATION OF PARATHYROID(S) performed by Valentina Lucas MD at [facility] OR ? ? PRO FULL THICK GRFT TRUNK <20 SQCM Bilateral 04/26/2017 FTSG, FREE, DIR CLOSE DONOR SITE, TRUNK, 20 SQ CM OR LESS (WRVU 9.15) performed by Andre Gimenez MD at [facility] OR ??? PRO MASTECTOMY, SIMPLE, COMPLETE Bilateral 04/26/2017 MASTECTOMY, SIMPLE, COMPLETE-SUSAN (WRVU 15.85) performed by Jolie Menendez MD at [facility] OR ??? PRO PARTIAL REMOVAL OF RIB Bilateral 04/26/2017 EXCISION OF RIB, PARTIAL (WRVU 7.26) performed by Andre Gimenez MD at [facility] OR ??? PRO REMOVE ARMPITS LYMPH NODES COMPLT Left 04/26/2017 LYMPHADENECTOMY, AXILLARY, COMPLETE (WRVU 13.87) performed by Jolie Menendez MD at [facility] OR ??? PRO THYMECTOMY, TRANSCERVICAL N/A 11/02/2015 THYMECTOMY, TRANSCERVICAL APPROACH performed by Valentina Lucas MD at [facility] OR ??? SHOULDER SURGERY Left ??? UMBILICAL HERNIA REPAIR Date/Procedure ?Med's given/comments 04/30/17 Rt breast drain exchange and repositioning, 10Fr. Versed 2mg IV, Fentanyl 100mcg IV. Tolerated well. 05/11/2017 Left axillary aspiration/ 45 ml ??Clear yellow Versed 3 mg IV, Fentanyl 150 mcg IV 05/14/2017??Left Axillary Drain placement?? Fentanyl 100 mcg IV; Pt tolerated procedure well.? 05/25/17 Bilat. Sinogram of axillary/breast drain, removed of left side drain Local only with Lido gel. ? Laboratory Results: Lab Results Component Value [...] documented in this encounter Nursing Notes * Alejandra Valencia RN - 05/25/2017 12:03 PM EDT To room 3 via stretcher. Onto table supine with bilateral arms above head. Monitors on. No med's brianne given. Lido gel to axillary sites. documented in this encounter Plan of Treatment Upcoming Encounters Date Type Department Care Team (Late st Contact Info) Description 01/22/2024 10:30 AM EST Appointment Mammography/[place] [address] Ladi Mendosa MD [facility] [place]ATOLOGY/[place] [address] 01/30/2024 11:30 AM EST Office Visit Dermatology at [address] [phone] Nilda Luis MD [facility] DR [place] [address] 02/15/2024 9:30 AM EST [place]ment [place] [phone] [place] [address] documented as of this encounter Procedures Procedure Name Priority Date/Time Associated Diagnosis Comments IR DRAIN CHECK/CHANGE/REMOVE Routine 05/25/2017 1:22 PM EDT Malignant neoplasm of left female breast, [...] ??complicated by intraoperative demise followed by Tissue Hoop Machine Operator placement. Patient had a RIGHT breast insitu [...] injection fills a space surrounding the tissue federal appellate clerk. The drain was flushed and re-connected to [...] injection fills a space surrounding the tissue federal appellate clerk. The drain was flushed and re-connected to [...] PRN, 1 dose, Starting on Sun05/25/17 at 1323, Until Sun05/25/17 at 1324, Per Protocol, Warning Vesicant/Irritant Medication , Angio/IR (Intra-Procedure), Routine Given 05/25/2017 1:24 PM EDT 5 mLs documented in this encounter Care Teams Slate Roofer Helper Relationship Specialty Start Date End Date Trinh Coates MD [facility] [address] [place] [address] PCP - General 01/11/10 documented as of this encounter
--- OUTSIDE RECORDS SUMMARY | 2023-09-07 11:33 | XMS_ITS | Encounter Summary ---
Author Organization [facility] [place] [address] Care Team Providers Care Emulsification Operator Name Role Phone Trinh Coates MD Primary Care Provider [phone] Reason for Referral * Physical Therapy (Routine) - Closed Specialty Diagnoses / Procedures Referred By Diamante marin Referred To Contact Physical Therapy Diagnoses Surgery follow-up Jolene Azevedo APRN [facility] [place] [address] Romy Abarca, PT [facility] PHYSICAL MEDICINE & [place] [address] Referral ID Status Reason Start Date Expiration Date V isits Requested Visits Authorized [id number] Closed Evaluate and Treat 05/25/2017 05/25/2018 1 1 Reason for Visit * Reason Comments Follow Up Surgery s/p breast recon, wo und check Encounter Details Date Type Department Care Team (Late st Contact Info) Description 05/25/2017 9:40 AM EDT Office [place] [address] Jolene Azevedo APRN [facility] [place] [address] Surgery follow-up Social History Tobacco Use Types [...] encounter Patient Instructions * Patient Instructions* Jolene Azevedo, AARTI - 05/25/2017 9:40 AM EDT 1. Follow up: coordinated expansion and PT visit in 1-2 weeks 2. Call to make an appointment for drain removal when output is less than 30 ml per day x 2 days 3. Leave antimicrobial dressing in place until your drain is removed. 4. Do not shower until 24 hours after your last drain has been removed. 5. Limit activities: do not lift > 5 pounds, no pushing, no pulling, no bouncing or running, no chest engaging activities such as push-ups or plank. 6. Continue silvadene application 7. Referral to PT 8. Prescription of Keflex and Zofran given 9. Take Keflex (prophylactic antibiotic) until 24 hours after drain removal. 10. Continue wound vac therapy documented in this encounter Progress Notes * Jolene Azevedo, AARTI - 05/25/2017 9:40 AM EDT Plastic Surgery Post Op Note Reason for visit: F/U status post procedure Date of surgery: 04/26/17 Procedure(s): Bilateral TE county records management officer breast reconstruction ([place] 600 cc expanders placed bilaterally and filled with 450 cc of methylene blue impregnated saline.) Complications: None reported HPI: Pt reports she has been okay since surgery. She has finished her course of Clindamycin and reports she was nauseous while taking it and continues to be nauseous. The patient reports that she is feeling pressure in her breasts and pain in her posterior shoulder. She is having VNA visits Sunday,Sunday, and Sunday. The patient continues wound vac therapy. Drains continue to produce serous fluid. Examination: Patient is alert, conversant, comfortable, ambulating Flaps well perfused. NAC grafts adherent. Eschar centrally. Expanders in good position, maintaining fill volume. Abdominal wound: 4.4 x 0.8 x 1.8 cm at the deepest No undermining or tunneling Drains in place with serous output. Impression: Wendy Sandoval is a 51 y.o. female who was seen today for follow- up after the above procedure. Please see the operative note for details. She is doing well without complaints. I assured the patient she is healing generally well to date and the pressure in her chest is normal with expanders. I recommend the patient begin physical therapy and continue her wound vac therapy. We discussed at length that the patient will need another antibiotic and I will prescribe her Keflex and Zofran. Plan: 1. Follow up: coordinated expansion and PT visit in 1-2 weeks 2. Call to make an appointment for drain removal when output is less than 30 ml per day x 2 days 3. Leave antimicrobial dressing in place until your drain is removed. 4. Do not shower until 24 hours after your last drain has been removed. 5. Limit activities: do not lift > 5 pounds, no pushing, no pulling, no bouncing or running, no chest engaging activities such as push-ups or plank. 6. Continue silvadene application 7. Referral to PT 8. Prescription of Keflex and Zofran given 9. Take Keflex (prophylactic antibiotic) until 24 hours after drain removal. 10. Continue wound vac therapy ISanket, am acting as scribe for Jolene Azevedo APRN. All work documented was performed byJolene Azevedo APRN. ???I performed the above scribed service and agree with the accuracy of the note?? JOLENE AZEVEDO APRN documented in this encounter Plan of Treatment Upcoming Encounters Date Type Department Care Team (Late st Contact Info) Description 01/22/2024 10:30 AM EST Appointment Mammography/[place] [address] Ladi Mendosa MD [facility] HEMATOLOGY/[place] [address] 01/30/2024 11:30 AM EST Office Visit Dermatology at [facility] [address] [place] [phone] Nilda Luis MD [facility] DR [address]ID[address] [place] [address] 02/15/2024 9:30 AM EST [place] [phone] [place] [address] Scheduled Referrals Name Type Priority Associated Diagnoses Orde r Schedule Referral to Physical Therapy Outpatient Referral Routine Surgery follow-up Ordered: 05/25/2017 documented as of this encounter Visit Diagnoses Diagnosis Surgery follow-up Follow-up examination, following unspecified surgery documented in this encounter Care Teams Emulsification Operator Relationship Specialty Start Date End Date Trinh Coates MD [facility] [address] [place] [address] PCP - General 01/11/10 documented as of this encounter
--- OUTSIDE RECORDS SUMMARY | 2023-09-07 11:33 | XMS_ITS | Encounter Summary ---
Author Organization [facility] [place] [address] Care Team Providers Care Associate Programmer Name Role Phone Trinh Coates MD Primary Care Provider [phone] Reason for Visit * Reason Comments Follow Up Surgery bilat bolster remova l, breast recon tissue pricing analyst 04/26 Encounter Details Date Type Department Care Team (Latest Contact Info) Description 05/04/2017 11:00 AM EDT Clinical [place] [phone] S/P breast reconstruction; Surgery follow-up Social History Tobacco Use Types [...] * Patient Instructions* Gerri Kendrick RN - 05/04/2017 11:00 AM EDT Patient Instructions: Follow up on May 142017 with a nurse. 1.Continue to monitor drain output. 2.Place silvadene on the belly button cover with gauze. Change twice daily and wash off old silvadene in-between. 3. Apply silvadene to the dark part of both nipples twice a day and apply a thin layer of Aquaphor to the non dark parts of the nipples , wash off old silvadene in between applications and cover withdry gauze. 4. A narcotic script was given today. 5. Need to get a chest X-ray today 6. A script of antibiotics were given, continue to take antibiotics while the drains are in. Signs of Infection : A temperature over 100.4 F or 38 C. Redness at the incision line that is beginning to spread away from the incision after the first 48 hours. Yellow pus-like or foul smelling drainage larger than a dime size from the incision or drain sites. Increased pain / discomfort that is not relieved by your pain medicine. For any of these symptoms please call our nurse's line at [phone] M - F 8 - 5 Silver Sulfadiazine Skin Cream What is silver sulfadiazine skin cream? Silver Sulfadiazine (Silvadene) is an antibiotic cream. What should my doctor know before recommending I use silver sulfadiazine? He/She needs to know if you have any of these conditions or take any of these medications: Anemia or other blood disorders; liver or kidney disease; porphyria; uvoioox-[id number]-[id number] dehydrogenase deficiency; allergies to sulfites, sulfa drugs, furosemide or thiazide diuretics, or oral diabetes or glaucoma medicine, methenamineor any other medicines, foods, dyes, or preservatives; or trying to get ; breast feeding Silver sulfadiazine may interact with collagenase (Santyl) or Travase. Tell your doctor if you are using these ointments How should I use this medicine? Silver sulfadiazine cream is for external use only. Follow the directions on the prescription label. Wash the affected area as directed. Apply the cream to cover the whole area evenly to a depth of about 1/16 th inch. Cover with gauze. Use twice a day Or as prescribed for the entire time prescribed. Do not get the cream in your eyes, nose or mouth. If you do, rinse out with plenty of cool tap water. If ingested, contact your local poison control center or emergency room. Keep out of the sun, or wear protective clothing outdoors and use a sunscreen. Do not use sun lampsor sun tanning beds or booths. NOTE: The ointment may change color (yellow/brown) after application as it mixes with your wound drainage. This is not a sign of an infection. You have been prescribed an antibiotic to treat your infection. While antibiotics effectively kill the bad bacteria causing your infection, they can also cause problems elsewhere by disturbing the good bacteria in other parts of your body. We recommend you take an over the counter probiotic containing Lactobacillus and Bifidobacterium (at least 5-10 Billion CFUs) to help lower your risk for side effects often caused by antibiotics. Plan: Take your probiotic 2 hours before or after your scheduled antibiotic Take your probiotic twice a day while on your antibiotic and for 2 weeks after documented in this encounter Progress Notes * Gerri Kendrick RN - 05/04/2017 11:00 AM EDT Reason for Visit: Postoperative Evaluation s/p bilateral breast reconstruction failed [place] / TE on 04/26/[address] Gimenez. POD # 8 Wendy is here for an incision check and bolster removal. Subjective: Wendy states she has moderate discomfort, she states has had good relief from tylenoland ibuprofen. Wendy states that she has needed narcotics for post op recovery. Objective: Bruising: mild bilaterally on the breast and abdomen. Swelling: moderate bilaterally on the breast and abdomen. Sutures are not ready to be removed today, incision well approximated, aquphor applied to the healthy parts of the nipples applied after wound care wash. Bilateral nipple bolsters removed, nipples are adhered, and dark. All four drain a putting out over 40 cc's and are not ready to come out. Dark eschar spot at the midline of the abdomen that measures 1cm x 4 cm. The rest of the abdomen incisions are clean, dry, and intact. Umblillical has eschar tissue. Dr. Gimenez into see patient, states that nipples are dark and that she should be started on silvadene to apply twice a day, and continue to use the silvadene to the umbilical. Keep darkened eschar area dry on the midline abdomen. Follow up on May 14 with a nurse for wound check and possible drain removal. Assessment: Some signs of delayed healing on the umbilical and midline abdomen, no erythema ,or fluid collection.Incisions CDI Plan: We reviewed post op incision instructions including: We reviewed signs and symptoms of infection, spitting sutures, parameters for normal post op swelling and bruising as stated in our post op brochure. We reviewed sun precautions, increase protein in the diet, and correct phone numbers to call us forconcerns. Dressing instructions: Wendy expressed understanding of instructions,and agrees with the plan of care. Follow up on May 14 2017 or sooner with Nurse for wound/incision check. documented in this encounter Plan of Treatment Upcoming Encounters Date Type Department Care Team (Late st Contact Info) Description 01/22/2024 10:30 AM EST Appointment Mammography/[place] [address] Ladi Mendosa MD [facility] HEMATOLOGY/[place] [address] 01/30/2024 11:30 AM EST Office Visit Dermatology at [address] [place] [address] Nilda Luis MD [facility] DR [address] [place] [address] 02/15/2024 9:30 AM [place] [phone] [place] [address] documented as of this encounter Results * XR Chest PA [...] breast reconstruction Breast replaced by other means Surgery follow-up Follow-up examination, following unspecified surgery S/P breast reconstruction Breast replaced by other means documented in this encounter Care Teams Associate Programmer Relationship Specialty Start Date End Date Trinh Coates MD [address] [place] [address] PCP - General 01/11/10 documented as of this encounter
--- OUTSIDE RECORDS SUMMARY | 2023-09-07 11:33 | XMS_ITS | Encounter Summary ---
Author Organization [facility] Address [facility] [place] [address] Care Team Providers Care Director Medical Name Role Phone Trinh Coates MD Primary Care Provider [phone] Reason for Referral * Diagnostic Test (Routine) - Closed Specialty Diagnoses / Procedures Referred By Diamante marin Referred To Contact Radiology Diagnoses Malignant neoplasm of female breast, unspecified estrogen receptor status, unspecified laterality, unspecified site of breast Procedures IR Drain Check/Change/Remove Diana Azevedo APRN [facility] [place] [address] [place] [address] Referral ID Status Reason Start Date Expiration Date V isits Requested Visits Authorized [id number] Closed Specialty Service Requested 05/30/2017 05/30/2018 1 1 Encounter Details Date Type Department Care Team (Late st Contact Info) Description 05/30/2017 Orders [place] [address] Diana Azevedo APRN [facility] [place] [address] Malignant neoplasm of female breast, unspecified estrogen receptor status, unspecified laterality, unspecified site of breast Social History Tobacco [...] 01/22/2024 10:30 AM EST Appointment Mammography[place] [address] Ladi Mendosa MD [facility] HEMATOLOGY/[place] [address] 01/30/2024 11:30 AM EST Office Visit Dermatology at [address] [phone] Nilda Luis MD [facility] DR [address] [place] [address] 02/15/2024 9:30 AM EST [place] [address] [place] [address] documented as of this encounter Results * IR Drain Check/Change/Remove (06/06/2017 12:05 PM EDT) Anatomical Region Laterality Modality Head X-Ray Angiograph y Narrative 06/06/2017 1:23 PM EDT IR Procedure Note Procedure: ?1. Right breast drain removal ?2. Left breast drain injection ?3. US evaluation of the left breast History/indication: 51 y.o. female with history of left breast cancer s/p bilateral mastectomy, with tissue software application tester placement. Seen in Plastic Surgery clinic yesterday [...] of the left breast demonstrated the tissue software application tester with several folds but no discreet adjacent fluid collection. Images and exam were reviewed with Dr. Rodriguez (Breast Division) Left breast drain injection showing : The drain is patent; a portion of the contrast collects around the drain laterally; contrast also opacifies a curvilinear space surrounding the software application tester. Complications: ?None immediate; ??EBL=0 Medications: ??1% lidocaine (<10 cc); fentanyl 50 mcg Contrast: ??5 cc non-ionic/omniapque Fluoroscopy time: 1.6 minutes Findings: 1. Right breast drain removal. 2. Left breast US with no fluid collection adjacent to the software application tester observed 3. Left breast drain injection showing contrast collecting around the drain laterally as well as opacifying a curvilinear space around the software application tester. Attending: ?Rashaad aPulson MD ? I was present during the intraservice time as documented by the IR Nurse. Diana ALMARAZ IR ORDERABLES documented in this encounter Visit Diagnoses Diagnosis Malignant neoplasm of female breast, unspecified estrogen receptor status, unspecified laterality, unspecified site of breast Malignant neoplasm of female breast, unspecified estrogen receptor status, unspecified laterality, unspecified site of breast documented in this encounter Care Teams Director Medical Relationship Specialty Start Date End Date Trinh Coates MD [address] [place] [address] PCP - General 01/11/10 documented as of this encounter
--- OUTSIDE RECORDS SUMMARY | 2023-09-07 11:33 | XMS_ITS | Encounter Summary ---
Author Organization [facility] Address [facility] [place] [address] Care Team Providers Care Prop Setter Name Role Phone Trinh Coates MD Primary Care Provider [phone] Reason for Referral * Consultation (Routine) - Closed Specialty Diagnoses / Procedures Referred By Diamante marin Referred To Contact Hematology and Oncology Diagnoses Malignant neoplasm of upper-outer quadrant of left breast in female, estrogen receptor positive Sally Ren APRN [facility] [place] [address] [facility] Hem Onc Office [address] [place] [phone] Referral ID Status Reason Start Date Expiration Date V isits Requested Visits Authorized [id number] Closed Consult, Test & Treat 05/30/2017 05/30/2018 1 1 Encounter Details Date Type Department Care Team (Late st Contact Info) Description 05/30/2017 Orders Only Hematology [place] [address] Sally Ren APRN [facility] [place] [address] Malignant neoplasm of upper-outer quadrant of left [...] 01/22/2024 10:30 AM EST Appointment Mammography/DXA at [place] [phone] Ladi Mendosa MD [facility] HEMATOLOGY/[place] [address] 01/30/2024 11:30 AM EST Office Visit Dermatology at [address] [place] [address] Nilda Luis MD [facility] [address] [address] 02/15/2024 9:30 AM EST Appointment Radiology at [place] [phone] [place] [address] Scheduled Referrals Name Type Priority Associated Diagnoses Orde r Schedule Referral to Familial Cancer Outpatient Referral Routine Malignant neoplasm of upper-outer quadrant of left breast in female, estrogen receptor positive Ordered: 05/30/2017 documented as of this encounter Visit Diagnoses Diagnosis Malignant neoplasm of upper-outer quadrant of left breast in female, estrogen receptor positive documented in this encounter Care Teams Prop Setter Relationship Specialty Start Date End Date Trinh Coates MD [address] [place] [address] PCP - General 01/11/10 documented as of this encounter
--- OUTSIDE RECORDS SUMMARY | 2023-09-07 11:34 | XMS_ITS | Encounter Summary ---
Author Organization [place] [address] Care Team Providers Care Animal Care Specialist Name Role Phone Trinh Coates MD Primary Care Provider [phone] Reason for Visit * Auth/Cert Specialty Diagnoses / Procedures Referred By Diamante marin Referred To Contact Diagnoses Left breast cancer Procedures PRO BREAST RECONSTRUC W FREE FLAP @BREAST RECONSTRUCTION W/ FREE FLAP, SUSAN (WRVU 42.58) Referral ID Status Reason Start Date Expiration Date Visits Re quested Visits Authorized [id number] 1 1 Encounter Details Date Type Department Care Team (Latest Contact Info) Description 04/26/2017 6:09 AM EST - 05/01/2017 12:20 PM EDT Hospital Encounter [address] [place] [address] Mali Lakhani MD [facility] [place] [address] Status post bilateral breast reconstruction Discharge Disposition: [...] Reading Time Taken Comments Blood Pressure 156/99 05/01/2017 9:13 AM EDT RN notified Pulse 79 04/30/2017 11:00 AM EDT Temperature 37.4 ??C (99.3 ??F) 05/01/2017 9:13 AM ED T Respiratory Rate 18 05/01/2017 9:13 AM EDT Oxygen Saturation 95% 05/01/2017 9:13 AM EDT Inhaled Oxygen Concentration - - Weight 76.7 kg (169 lb) 04/26/2017 6:19 AM EST Height 152.4 cm (5') 04/26/2017 6:19 AM EST Body Mass Index 33.01 04/26/2017 6:19 AM EST documented in this encounter Discharge Summaries * Alma Castillo PA - 05/01/2017 7:55 AM EDT Images from the original note were not included. PLASTIC SURGERY DISCHARGE SUMMARY Patient Name: Wendy Sandoval Patient Age, : 51 y.o. 1965 Language, race, ethnicity: [place], White, Not nor Date of Admission: 04/26/2017 Date of Discharge: 05/01/17 Attending Physician: Mali Lakhani MD Discharge Physician: Mali Lakhani MD Discharge Diagnoses (Hospital Problems) and Secondary Diagnoses (Chronic Problems): Active Hospital Problems Diagnosis ??? Status post bilateral breast reconstruction Resolved Hospital Problems Diagnosis Date Resolved No resolved problems to display. Active Non-Hospital Problems Diagnosis ??? Malignant neoplasm of upper-outer quadrant of left breast in female, estrogen receptor positive ??? Hyperparathyroidism ??? Obstructive sleep apnea (adult) (pediatric) ??? OA (osteoarthritis) ??? Overweight(278.02) ??? Hypertension ??? Depression Operations/Major Procedures: Procedure(s): @BREAST RECONSTRUCTION W/ FREE FLAP, SUSAN (WRVU 42.58) EXCISION OF RIB, PARTIAL (WRVU 7.26) MASTECTOMY, SIMPLE, COMPLETE-SUSAN (WRVU 15.85) MODIFIER , NIPPLE SPARING LYMPHADENECTOMY, AXILLARY, COMPLETE (WRVU 13.87) BREAST RECONSTRUCTION, IMMEDIATE OR DELAYED, W/ TISSUE COLLEGE OR UNIVERSITY REGISTRAR, INCLUDING SUBSEQUENT EXPANSION (WRVU 18.5) FTSG, FREE, DIR CLOSE DONOR SITE, TRUNK, 20 SQ CM OR LESS (WRVU 9.15) 04/26/2017 - 04/27/2017 History of Presentation: 51yo F pt with history of Er/KY+, HEr2- right breast CA. Per office note by Dr. Lakhani 04/05/2017 Her breast cancer history began with an abnormal mammogram in left breast. Further imaging was ordered and a biopsy revealed infiltrating ductal carcinoma. Her lymph nodes were biopsied and revealed malignancy. She was then referred to Dr. Menendez who discussed a mastectomy, versus breast conservation and she is now considering a bilateral mastectomy. She is unsure if she will have a nipple sparing surgery. Radiation may be planned and chemotherapy may be planned. Genetic testing may be planned. The patient has sleep apnea. She has had a right CTR, left shoulder surgery, 3 parathyroids removed, and left ankle surgery. The patient has had an umbilical hernia, she is unsure if mesh was placed, and 2 C-sections in the past. The patient reports she currently has a kidney stone. The patient had difficulty with anesthesia during 1 surgery, but her last surgeries at [facility] went very smoothly with anesthesia. She currently wears a size C-cup bra and wishes to be the same size after surgery. The patient's mother, aunt, cousin, and her maternal aunt have all had breast cancer. She denies smoking cigarettes. 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 On 04/26/2017 pt underwent bilateral mastectomy and left axillary SLN excision by Dr. Menendez, attempted reconstruction with Bilateral SALVADOR flaps which failed, and had reconstruction with bilateral TE placement and FNG by Dr. Lakhani. History obtained through patient interview, review of relevant records, and/or discussion with referring provider. Hospital Course: Patient was admitted electively to [facility] via the same day surgery program and underwent the above procedure. The patient tolerated the above procedure well and was admitted post-operatively for routine post- operative care. POD5: right breast drain lost suction, breast with accumulated fluid, pt underwent IR drain placement procedure Today, POD#6 she has met all criteria for discharge home: her pain is well controlled with medications by mouth, she is tolerating a regular diet, is voiding spontaneously without difficulties, and is up and ambulating without complications. Pt has been deemed safe for discharge to home. Past Medical History Past Medical History: Diagnosis [...] LARYNGEAL performed by Valentina Lucas MD at [facility] OR ??? PRO BREAST RECONSTRUC W FREE FLAP Bilateral 04/26/2017 @BREAST RECONSTRUCTION W/ FREE FLAP, SUSAN (WRVU 42.58) [facility] ??? PRO BREAST RECONSTRUC W TISS EXPANDR Bilateral 04/26/2017 BREAST RECONSTRUCTION, IMMEDIATE OR DELAYED, W/ TISSUE COLLEGE OR UNIVERSITY REGISTRAR, INCLUDING SUBSEQUENT EXPANSION (WRVU 18.5) performed by Mali Lakhani MD at [facility] OR ??? PRO EXPLORE PARATHYROID GLANDS N/A 11/02/2015 PARATHYROIDECTOMY OR EXPLORATION OF PARATHYROID(S) performed by Valentina Lucas MD at [facility] OR ? ? PRO FULL THICK GRFT TRUNK <20 SQCM Bilateral 04/26/2017 FTSG, FREE, DIR CLOSE DONOR SITE, TRUNK, 20 SQ CM OR LESS (WRVU 9.15) performed by Mali Lakhani MD at [facility] OR ??? PRO MASTECTOMY, SIMPLE, COMPLETE Bilateral 04/26/2017 MASTECTOMY, SIMPLE, COMPLETE-SUSAN (WRVU 15.85) performed by Ria Menendez MD at [facility] OR ??? PRO PARTIAL REMOVAL OF RIB Bilateral 04/26/2017 EXCISION OF RIB, PARTIAL (WRVU 7.26) performed by Mali Lakhani MD at [facility] MAIN OR ??? PRO REMOVE ARMPITS LYMPH NODES COMPLT Left 04/26/2017 LYMPHADENECTOMY, AXILLARY, COMPLETE (WRVU 13.87) performed by Ria Menendez MD at [facility] MAIN OR ??? PRO THYMECTOMY, TRANSCERVICAL N/A 11/02/2015 THYMECTOMY, TRANSCERVICAL APPROACH performed by Valentina Lucas MD at [facility] MAIN OR ??? SHOULDER SURGERY Left ??? UMBILICAL HERNIA REPAIR Procedures: 04/26/2017 - 04/27/2017 Surgeon(s) and Role: Panel 1: * Mali Lakhani MD - Primary * Kaveh Whiteside MD - Resident-Surgeon Hubert * Alyx Estrella MD - *ASSISTING SURGEON Panel 2: * Ria Menendez MD - Primary: Procedure(s): @BREAST RECONSTRUCTION W/ FREE FLAP, SUSAN (WRVU 42.58) EXCISION OF RIB, PARTIAL (WRVU 7.26) MASTECTOMY, SIMPLE, COMPLETE-SUSAN (WRVU 15.85) MODIFIER , NIPPLE SPARING LYMPHADENECTOMY, AXILLARY, COMPLETE (WRVU 13.87) BREAST RECONSTRUCTION, IMMEDIATE OR DELAYED, W/ TISSUE COLLEGE OR UNIVERSITY REGISTRAR, INCLUDING SUBSEQUENT EXPANSION (WRVU 18.5) FTSG, FREE, DIR CLOSE DONOR SITE, TRUNK, 20 SQ CM OR LESS (WRVU 9.15) Vital Signs at Discharge: Wt Readings from Last 1 Encounters: 04/26/17 76.7 kg (169 lb) Ht Readings from Last 1 Encounters: 04/26/17 152.4 cm (5') Body mass index is 33.01 kg/(m^2). Last value Range last 24 hrs Temperature Temp: 37.7 ??C (99.9 ??F) Temp: [35.9 ??C (96.6 ??F)-37.7 ??C (99.9 ??F)] Heart Rate Heart Rate: 79 Heart Rate: [69-85] Blood Pressure BP: (!) 157/99 BP: (137-171)/(88-126) Respiratory Rate Resp: 18 Resp: [12-26] SpO2 SpO2: 95 % SpO2: [92 %-97 %] Physical Exam on d/c: Intake/Output Summary (Last 24 hours) at 05/01/17 0755 Last data filed at 05/01/17 0546 Gross per 24 hour Intake 940 ml Output 2830 ml Net -1890 ml General: Appears in no acute distress, pleasant, cooperative, resting comfortably in bed HEENT: atraumatic, normocephalic, sclerae anicteric, trachea midline, no noted facial asymmetries/echymosis/edema Respiratory: Breathing is non-labored, breath sounds are equal and present bilaterally, no wheezingon room air Cardiovascular: No peripheral edema, RRR Breast: postoperative bra intact, postoperative bilat bolsters on, breasts pink/warm with minimal postop ecchymoses, bilat incisions c/d/i, no evidence of hematoma/sermoa/infection, no palpable fluidpockets, drains intact bilaterally Abdomen: non distended, non tender,transverse abdominal incision intact, no erythema/edema, bilat drains in Umbilicus: slightly dark with overlying silvadene, incision c/d/i, no erythema Extremities: no clubbing, no cyanosis, capillary refill <2sec, warm/dry and pink, motor and sensation intact on gross exam Mental Status: alert and oriented, normal mood/behavior, speech, motor activity, thought process Functional and Cognitive Status: Ambulating and cognitively intact. Important Studies and Lab Data: Labs: Last wbc, hgb, hct plt Recent Labs 05/01/17 0339 WBC 17.2* HGB 12.2 HCT 36.4 Imaging Studies: none Pending Studies and Lab Data: No current labs Medications: Your Medications New Medications Dose Details Lactobacillus 0.5 mg (100 million cell) Tab Commonly known as: BACID Take 1 tablet by mouth daily. 1 tablet Quantity: 30 tablet Refills: 0 ondansetron 4 mg Tab Commonly known as: ZOFRAN Take 1 tablet by mouth every 8 hours as needed for Nausea. 4 mg Quantity: 6 tablet Refills: 0 oxyCODONE 5 mg Tab Commonly known as: ROXICODONE Take 1 tablet by mouth every 4 hours as needed for Pain (ONLY for pain that is not controlled on tylenol and NSAIDs). 5 mg Quantity: 16 tablet Refills: 0 silver sulfADIAZINE 1 % Crea Commonly known as: SILVADENE Apply topically 2 times daily for 20 days. To umbilicus, thick layer, twice a day. Completely wipe off before reapplying. Quantity: 50 g Refills: 0 Continued medications, unchanged Dose Details [...] daily. Generic drug: potassium chloride Refills: 0 levothyroxine 112 mcg Tab Commonly [...] by mouth daily. 1 tablet Refills: 0 Allergies: Allergies Allergen Reactions ??? Pcn [Penicillins] ??? Zoloft [Sertraline] PSORIASIS FLARE Immunizations Given this Hospitalization: There is no immunization history on file for this patient. Smoking Status at Discharge: History Smoking Status ??? Former Smoker Smokeless Tobacco ??? Never Used Discharge to: Home Discharge Instructions: Patient Instructions Implant Based Reconstruction Post-op Instructions Your medications were sent electronically to the [facility] pharmacy The healing process after breast reconstruction surgery varies with each person. You should expect to feel tired for the first 2-3 weeks due to anesthesia and the healing process. Pain ??? With any surgery there is some discomfort or pain. We will give you a prescription for a pain pill to take at home. You may use Tylenol as needed for pain. We also recommend taking an anti-inflammatory (Ibuprofen , may start 48hrs after surgery). Take pain relievers as prescribed and only as needed. ??? Take an hzaf-fbs-daiecst stool softener, such as Colace while taking your narcotic pain reliever to maintain bowel regularity. Drink plenty of water. ??? DO NOT use ice or heat on your incisions. Your ability to feel hot or cold at the incision willbe abnormal for several months. ??? You will have nerve pain after your surgery because the nerve endings have been disturbed. Nerve pain may feel like a burning sensation, itching, or a shooting, electric shock pain. This is normal and will get better as you heal. Swelling ??? Moderate bruising and swelling of the breast(s) is normal for the first few weeks after surgery. Drains -The drains are made to collect fluid to reduce the risk of an infection and or the formation of a seroma or hematoma. The amount of fluid should decrease daily and turn light pink or light yellow. The drains will be removed by the provider when the output is < 30mL/day for two days in a row foreach drain. Please keep a log of the output [...] clean towel to prevent infection each time. -The nurses will show you how to care for the drains ??? Take your antibiotics while drains are in. If you run out of antibiotics while your drains are still in, please call our clinic for a refill. ??? Ensure that antimicrobial disc is in place around drain site at all times. The plastic surgery nurses will remove it at the time of drain removal. Silvadene: - Please apply a thick layer of silvadene to your umbilicus twice a day - Completely wipe off before reapplying - Continue until healed Showering ??? Do NOT shower with drains in place. Sponge bathe. ??? Do not take a bath or use a hot tub until your skin is completely healed, approximately 3 weeks. Incisions ??? Expect to have some red, pink, yellow/clear drainage from your incisions for the first 1-[address] dressings at the incisions while you have drainage. ??? Expect redness at the incision line for several weeks as your absorbable sutures are dissolving. If the redness begins to spread away from the incision, you should call the clinic. ??? Spitting sutures: occasionally an area of redness and tenderness develops where a dissolving stitch becomes irritated and pushes to the surface. This stitch is clear or white and looks like fishing line. If this occurs, it is not an emergency. You may clip the stitch or call the clinic for an appointment with the nurse. Bra ??? Do not wear an under-wire bra for 3 months as your skin may still be numb from surgery. Activity ???If it hurts, don???t do it? For the first 1-2 weeks, when pushing yourself up to get out of bed, avoid using the arm on thereconstructed side. ??? Do not drive for 1-2 weeks while you are on narcotic pain reliever or if driving causes you pain. ??? Do not engage in sexual intercourse for the first 1-2 weeks. ??? Do not sleep on your side or stomach for 2 weeks. ??? Do not lift anything that weighs more than 5 pounds for 6 weeks. ??? No strenuous exercise (tennis, aerobics, jogging) for 6 weeks. ??? Walking is encouraged. At least get up and walk around the house several times per day. Feel free to walk as much as you want. Walking improves circulation, respiratory function and healing. ??? Most women return to work in 4-6 weeks. ??? Traveling is fine but you may wish to say close to your doctor in the first few weeks in case there are any complications. Call our office if: ??? Your incision opens up ??? One breast is hard and is much larger than the other ??? You have signs of infection o A temperature over 100.4 F. o Redness of the incision lines that is beginning to spread away from the incision. o Yellow pus-like or foul smelling drainage from the incision or drain site. o Increase pain/discomfort that is not relieved by your pain medication. To make an appointment or for questions about scheduling, please contact our administrative officesat [phone] For clinical questions, please call our nurses at [phone] Both offices are open Sunday thru Sunday 8a - 5p. With emergencies after hours, call the hospital bandage wrapping machine operator at [phone] and ask for the Plastic Surgery Resident sand conditioner. Narcotics: You may be given a prescription for a narcotic medication immediately following your surgery. Narcotics are prescribed for short-term (1-3 days) use to help treat your pain. Narcotics do not reduce inflammation and it [...] Motrin) aremedications that reduce pain and inflammation. NSAIDS may be used 48 hours after surgery with your narcotic to help alleviate the pain caused by inflammation. To reduce your chance of side effects, it is recommended that you save your narcotic medication fornighttime use and switch to NSAIDS or Acetaminophen [...] called in to our prescription line at [phone]. Narcotic renewals may be requested from 8am-4pm [...] expect 2-5 business days prior to arrival. Post-Op Plan: - Follow up with TRAVEL WRITER/nurse - A nurse from clinic will call you to schedule your appointment for bilateral bolster removal. This needs to be done either Sunday or of this week in our clinic. - Wound Check - Suture removal if needed - Dressings removal if needed - Drain removal per protocol Future Appointments Date Time Provider Department Center 05/07/2017 10:00 AM Romy Abarca, PT PT Rehab [facility] 05/14/2017 9:00 AM NURSE, PLASTIC SURGERY [facility] 05/14/2017 10:00 AM Ria Menendez MD [facility] 05/14/2017 2:00 PM [facility] IR ROOM 3 IR [facility] 05/14/2017 3:30 PM Gustavo Mota MD Leb Hem Onc [facility] 05/21/2017 8:[address] [facility] 05/21/2017 9:00 AM Emily Choi MD [facility] General Instructions INTERVENTIONAL RADIOLOGY DRAIN CARE [...] is during regular office hours, please call [phone]. If it is after regular office hours, or on weekends or holidays, please call [phone] and ask to speak to the Medical Insurance Coder sand conditioner for Interventional Radiology. Revised 03/05/15 Drainage Record NAME: Date of Surgery: Date: Time: If more than one drain, which one: Drainage Amount (per drain) Total Amount (per drain; in 24 hours) Future Appointments and Orders Future Appointments Provider Department Dept Phone 05/07/2017 10:00 AM Romy Abarca PT Physical Therapy at [place] [phone] 05/14/2017 9:00 AM NURSE, PLASTIC SURGERY Plastic Surgery at [place] [phone] 05/14/2017 10:00 AM Ria Menendez MD General Surgery at [place] [phone] 05/14/2017 2:00 PM [facility] IR ROOM 3 Radiology at [place] [phone] Please expect a call from a radiology nurse within 3 days of your exam, you will need to follow theinstructions given at that time. 05/14/2017 3:30 PM Rasheeda Trent RN; Gustavo Mota MD; C[facility], SOCIAL WORK Hematology and Oncology at [place] [phone] 05/21/2017 8:30 AM Rad Nurse, [facility] [place] Radiation Oncology at [facility] [phone] 05/21/2017 9:00 AM Emily Choi MD Radiation Oncology at [facility] [phone] Discharge Medications: Your Medications New Medications Dose Details Lactobacillus 0.5 mg (100 million cell) Tab Commonly known as: BACID Take 1 tablet by mouth daily. 1 tablet Quantity: 30 tablet Refills: 0 ondansetron 4 mg Tab Commonly known as: ZOFRAN Take 1 tablet by mouth every 8 hours as needed for Nausea. 4 mg Quantity: 6 tablet Refills: 0 oxyCODONE 5 mg Tab Commonly known as: ROXICODONE Take 1 tablet by mouth every 4 hours as needed for Pain (ONLY for pain that is not controlled on tylenol and NSAIDs). 5 mg Quantity: 16 tablet Refills: 0 silver sulfADIAZINE 1 % Crea Commonly known as: SILVADENE Apply topically 2 times daily for 20 days. To umbilicus, thick layer, twice a day. Completely wipe off before reapplying. Quantity: 50 g Refills: 0 Continued medications, unchanged Dose Details [...] daily. Generic drug: potassium chloride Refills: 0 levothyroxine 112 mcg Tab Commonly [...] by mouth daily. 1 tablet Refills: 0 Follow-up plan: F-u Sunday or for bolster removal F-u as scheduled for wound check, drain removal per protocol Keflex while drains are in Silvadene to umbilicus Other/Consults: Code status: full code Future Appointments and Orders Future Appointments Provider Department Dept Phone 05/07/2017 10:00 AM Romy Abarca, PT Physical Therapy at [place] [phone] 05/14/2017 9:00 AM NURSE, PLASTIC SURGERY Plastic Surgery at [place] [phone] 05/14/2017 10:00 AM Ria Menendez MD General Surgery at [place] [phone] 05/14/2017 2:00 PM [facility] IR ROOM 3 Radiology at [place] [phone] Please expect a call from a radiology nurse within 3 days of your exam, you will need to follow theinstructions given at that time. 05/14/2017 3:30 PM Rasheeda Trent RN; Gustavo Mota MD; [facility], SOCIAL WORK Hematology and Oncology at [place] [phone] 05/21/2017 8:[address] [facility] Radiation Oncology at [facility] [phone] 05/21/2017 9:00 AM Emily Choi MD Radiation Oncology at [facility] [phone] Future Appointments Date Time Provider Department Center 05/07/2017 10:00 AM [facility] 05/14/2017 9:00 AM NURSE, PLASTIC SURGERY [facility] 05/14/2017 10:00 AM Ria Menendez MD [facility] 05/14/2017 2:00 PM [facility] IR ROOM 3 IR [facility] 05/14/2017 3:30 PM Gustavo Mota MD [facility] Onc [facility] 05/21/2017 8:[address] [facility] Rad [facility] 05/21/2017 9:00 AM Emily Choi MD ST Rad [facility] Primary Care Provider: Trinh Coates MD [phone] VNA: No discharge procedures on file. General Instructions INTERVENTIONAL RADIOLOGY DRAIN CARE INSTRUCTIONS [...] is during regular office hours, please call [phone]. If it is after regular office hours, or on weekends or holidays, please call [phone] and ask to speak to the Medical Insurance Coder sand conditioner for Interventional Radiology. Revised 03/05/15 Drainage Record NAME: Date of Surgery: Date: Time: If more than one drain, which one: Drainage Amount (per drain) Total Amount (per drain; in 24 hours) Your care was managed by the Plastic SurgeryTeam at [facility]. If you haveany questions or concerns, please feel free to contact us. Provider Contact Information: Plastic Surgery Clinic: [facility] (after business hours): documented in this encounter Discharge Instructions * Discharge Instructions* Loida Mcelroy RN - 04/30/2017 11:54 AM EDT Images from the original note [...] is during regular office hours, please call [phone]. If it is after regular office hours, or on weekends or holidays, please call [phone] and ask to speak to the Medical Insurance Coder sand conditioner for Interventional Radiology. Revised 03/05/15 Drainage Record NAME: Date of Surgery: Date: Time: If more than one drain, which one: Drainage Amount (per drain) Total Amount (per drain; in 24 hours) * Patient Instructions* Alma Castillo PA - 05/01/2017 7:35 AM EDT Implant Based Reconstruction Post-op Instructions Your medications were sent electronically to the [facility] pharmacy The healing process after breast reconstruction surgery varies with each person. You should expect to feel tired for the first 2-3 weeks due to anesthesia and the healing process. Pain ??? With any surgery there is some discomfort or pain. We will give you a prescription for a pain pill to take at home. You may use Tylenol as needed for pain. We also recommend taking an anti-inflammatory (Ibuprofen , may start 48hrs after surgery). Take pain relievers as prescribed and only as needed. ??? Take an btxx-xsc-pcpjfla stool softener, such as Colace while taking your narcotic pain reliever to maintain bowel regularity. Drink plenty of water. ??? DO NOT use ice or heat on your incisions. Your ability to feel hot or cold at the incision willbe abnormal for several months. ??? You will have nerve pain after your surgery because the nerve endings have been disturbed. Nerve pain may feel like a burning sensation, itching, or a shooting, electric shock pain. This is normal and will get better as you heal. Swelling ??? Moderate bruising and swelling of the breast(s) is normal for the first few weeks after surgery. Drains -The drains are made to collect fluid to reduce the risk of an infection and or the formation of a seroma or hematoma. The amount of fluid should decrease daily and turn light pink or light yellow. The drains will be removed by the provider when the output is < 30mL/day for two days in a row foreach drain. Please keep a log of the output [...] clean towel to prevent infection each time. -The nurses will show you how to care for the drains ??? Take your antibiotics while drains are in. If you run out of antibiotics while your drains are still in, please call our clinic for a refill. ??? Ensure that antimicrobial disc is in place around drain site at all times. The plastic surgery nurses will remove it at the time of drain removal. Silvadene: - Please apply a thick layer of silvadene to your umbilicus twice a day - Completely wipe off before reapplying - Continue until healed Showering ??? Do NOT shower with drains in place. Sponge bathe. ??? Do not take a bath or use a hot tub until your skin is completely healed, approximately 3 weeks. Incisions ??? Expect to have some red, pink, yellow/clear drainage from your incisions for the first 1-[address] dressings at the incisions while you have drainage. ??? Expect redness at the incision line for several weeks as your absorbable sutures are dissolving. If the redness begins to spread away from the incision, you should call the clinic. ??? Spitting sutures: occasionally an area of redness and tenderness develops where a dissolving stitch becomes irritated and pushes to the surface. This stitch is clear or white and looks like fishing line. If this occurs, it is not an emergency. You may clip the stitch or call the clinic for an appointment with the nurse. Bra ??? Do not wear an under-wire bra for 3 months as your skin may still be numb from surgery. Activity ???If it hurts, don???t do it? For the first 1-2 weeks, when pushing yourself up to get out of bed, avoid using the arm on thereconstructed side. ??? Do not drive for 1-2 weeks while you are on narcotic pain reliever or if driving causes you pain. ??? Do not engage in sexual intercourse for the first 1-2 weeks. ??? Do not sleep on your side or stomach for 2 weeks. ??? Do not lift anything that weighs more than 5 pounds for 6 weeks. ??? No strenuous exercise (tennis, aerobics, jogging) for 6 weeks. ??? Walking is encouraged. At least get up and walk around the house several times per day. Feel free to walk as much as you want. Walking improves circulation, respiratory function and healing. ??? Most women return to work in 4-6 weeks. ??? Traveling is fine but you may wish to say close to your doctor in the first few weeks in case there are any complications. Call our office if: ??? Your incision opens up ??? One breast is hard and is much larger than the other ??? You have signs of infection o A temperature over 100.4 F. o Redness of the incision lines that is beginning to spread away from the incision. o Yellow pus-like or foul smelling drainage from the incision or drain site. o Increase pain/discomfort that is not relieved by your pain medication. To make an appointment or for questions about scheduling, please contact our administrative officesat [phone] For clinical questions, please call our nurses at [phone] Both offices are open Sunday thru Sunday 8a - 5p. With emergencies after hours, call the hospital bandage wrapping machine operator at [phone] and ask for the Plastic Surgery Resident sand conditioner. Narcotics: You may be given a prescription for a narcotic medication immediately following your surgery. Narcotics are prescribed for short-term (1-3 days) use to help treat your pain. Narcotics do not reduce inflammation and it [...] Motrin) aremedications that reduce pain and inflammation. NSAIDS may be used 48 hours after surgery with your narcotic to help alleviate the pain caused by inflammation. To reduce your chance of side effects, it is recommended that you save your narcotic medication fornighttime use and switch to NSAIDS or Acetaminophen [...] called in to our prescription line at [phone]. Narcotic renewals may be requested from 8am-4pm [...] expect 2-5 business days prior to arrival. Post-Op Plan: - Follow up with TRAVEL WRITER/nurse - A nurse from clinic will call you to schedule your appointment for bilateral bolster removal. This needs to be done either Sunday or of this week in our clinic. - Wound Check - Suture removal if needed - Dressings removal if needed - Drain removal per protocol Future Appointments Date Time Provider Department Center 05/07/2017 10:00 AM Romy Abarca PT PT Rehab [facility] 05/14/2017 9:00 AM NURSE, PLASTIC SURGERY [facility] 4 [facility] 05/14/2017 10:00 AM Ria Menendez MD [facility] 05/14/2017 2:00 PM [facility] IR ROOM 3 [facility] 05/14/2017 3:30 PM Gustavo Mota MD [facility] Hem Onc [facility] 05/21/2017 8:[address] [facility] 05/21/2017 9:00 AM Emily Choi MD [facility] documented in this encounter Medications at [...] DR tablet 1 CAP daily 03/27/2014 024 Lactobacillus (BACID) 0.5 mg (100 million cell) Tablet Take 1 tablet by mouth daily. 30 tablet 05/01/2017 12/12/2017 ondansetron (ZOFRAN) 4 mg Tablet Take 1 tablet by mouth every 8 hours as needed for Nausea. 6 tablet 05/01/2017 05/21/2017 oxyCODONE (ROXICODONE) 5 mg Tablet Take 1 tablet by mouth every 4 hours as needed for Pain (ONLY for pain that is not controlled on tylenol and NSAIDs). 16 tablet 05/01/2017 05/04/2017 silver sulfADIAZINE (SILVADENE) 1 % Cream Apply topically 2 times daily for 20 days. To umbilicus, thick layer, twice a day. Completely wipe off before reapplying. 50 g 05/01/2017 05/04/2017 valsartan-hydrochloroth iazide (DIOVAN-HCT) 160-12.5 mg Tablet Take [...] as of this encounter Progress Notes * Senia Meeks RN - 05/01/2017 11:30 AM EDT Patient meets criteria for d/c home. PIV and Masimo removed per order. AVS and signed prescriptionsprovided to patient and d/c teaching performed, Drain teaching explained. Patient verbalizes understanding of teaching. Patient transported off unit via wheelchair by Nurse with AVS prescriptions andall belongings. Senia Meeks RN * Jasmyn Price, PT - 05/01/2017 10:52 AM EDT Physical Therapy Treatment Note Visit #: 4 Patient: 51 y.o. female with PMH including JACQUELYN on CPAP, HTN, hyperlipidemia, and breast CA (L) - newly diagnosed admitted on 04/26/2017 by Mali Hobson MD for bilateral breast reconstruction after mastectomy with SALVADOR flaps that failed intraoperatively and then Tissue Principal Statistical Programmer placement with FNG. Precautions/Restrictions: (P) fall, other (see comments) Precautions Comments: (P) Abdominal binder when out of bed. YG drains x4 (2L, 2R); Maintain trunk flexion greater than 30 degrees; NO ICE to surgical sites. Up with assistance Staff communication/Mobility Recommendations: ?? Pt. Independent for short distance ambulation with nursing. Subjective: I think I'm all set from practicing before, I'm just going to have my assist me in. - RE 2 stairs to enter Objective: Patient seen for 7 mins for follow-up RE home mobility, gentle HEP to perform at this time, and to answer any questions prior to hospital D/C. Assessment: Reviewed gentle AROM (B) LEs to be performed without resistance, below 90* flexion / abduction, and within pain-free ROM. Reviewed option for participation in Anastacia's class, and issued [facility] activities booklet (pt states she has already been introduced to this!). Pt and her report no ongoing questions / concerns at this time and feel functionally ready for hospital D/C. Plan: Continue per plan of care as outlined in initial evaluation. Discharge Recommendations: Home with assistance, recommend outpatient PT referral Equipment needs: No equipment necessary Time IN / OUT: 10:35 - 10:42 Total timed interventions: 0 JASMYN PRICE PT, DPT 05/01/2017 Pager: [phone] Physical Therapy Inpatient Rehabilitation Department * Diana Azevedo, CLOTH PRINTER HELPER - 05/01/2017 6:30 AM EDT Images from the original note were not included. INTERVENTIONAL RADIOLOGY Inpatient Progress Note Admitted 04/26/2017 Procedure(s): RIGHT breast drain replacement Post-procedure day: # 1 Time of patient encounter: 0600 24 Hour Events: Wendy happily reports feeling much improved since the drain was replaced. No fevers or chills. She is hoping to be discharged today. Last Value 24 Hour Range Temperature 37.7 ??C (99.9 ??F) Temp: [35.9 ??C (96.6 ??F)-37.7 ??C (99.9 ??F)] Heart Rate 79 Heart Rate: [69-85] Blood Pressure (!) 157/99 BP: (137-171)/(88-126) Respiratory Rate 18 Resp: [12-26] SpO2 95 % SpO2: [92 %-97 %] Physical Exam GEN No distress, A&O Drains/Tubes: RIGHT breast drain dressing C/D/I. Fluid is serosanguinous. 24 hr total: 340cc Labs: Results for WENDY SANDOVAL ( ) as of 05/01/2017 06:33 04/29/2017 08:09 04/30/2017 03:27 05/01/2017 03:39 WBC 15.7 (H) 14.7 (H) 17.2 (H) Imaging: Assessment: 51 y.o. female with breast CA to the left. Pt underwent bilateral breast reconstructionafter mastectomy with SALVADOR flaps (04/26/17); procedure complicated by intraoperative tissue demise followed by tissue factory helper placement. ?? Patient has a RIGHT breast insitu with large volume output. The drain became dislodged yesterday, and a new drain was placed via the existing tract. Patient subjectively much improved this morning with evacuation of right breast fluid, and removal of surgical drain which had retracted out of fluid collection and into tissue. Plan: 1) Continue drain care, including twice daily flushes (3cc) 2) Drain check in 2 weeks (ordered) 3) We will sign off, but would be happy to see patient again for any issues * Ira Artis RN - 04/30/2017 3:18 PM EDT Office of Care Management Initial Assessment IRA ARTIS RN reviewed record and discussed patient with Care Team. Source of Information: eDH and patient. Introduced self/reviewed role; services accepted. Reason for Hospitalization: Wendy Sandoval??is a 51 y.o.??female??with breast CA to the left. ?Pt underwent bilateral breast reconstruction after mastectomy with SALVADOR flaps (04/26/17); ??complicated by intraoperative demise followed by Tissue Principal Statistical Programmer placement. Past Medical History: Diagnosis Date ??? Fibrocystic breast determined by biopsy ??? Hyperlipidemia ??? Hypertension ??? Impaired fasting glucose ??? Malignant neoplasm of upper-outer quadrant of left breast in female, estrogen receptor positive03/31/2017 ??? Obstructive sleep apnea on CPAP ??? Proteinuria Hospitalizations Within the Past 30 Days: No Anticipated Length Of Stay (If known): TBD Current Decision-Making Capacity: self Advance Care Planning: not on file Current Coping/Education/Information Needs: Reports significant pain in L leg Current Functional Ability: has been OOB and per review PT has used a FWW Functional Status Prior to Admission: independent Home Environment: multi level home Social & Family Supports/Community Resources: Extended Emergency Contact Information Primary Emergency Contact: Phillip Sandoval [facility] Mobile Relation: Spouse Behavioral Health History: No-per chart review Substance Use/Abuse: chart review -none listed Other Pertinent/Service Specific Information: None Health/Prescription Coverage: Primary Insurance: Payor: MVP / Plan: MVP NON REFERRAL / Product Type: *No Product type* / Secondary Insurance: Prescription Coverage: see above Preferred Pharmacy: [phone] [id number] [place], [place] - [address] [facility] [address] [facility] [address] [facility] [address] Other: None Primary Care Provider: Trinh Coates MD [phone] Patient/Caregiver Goals of Treatment: Safe discharge Potential Needs for Transition of Care: Rehab/SNF: no Home Health: declined need- has someone coming to stay with her DME: declined needs Dialysis: No Community Resources: No Transportation: family Other: None Anticipated Barriers to Discharge/Special Considerations: None Plan: Pt declined need for VNA support at this time. A member of the Care Management team will continue to monitor progress, follow for continuity of care and assist with transition of care planning. IRA ARTIS RN Pager: [phone] * Shannan Galan RN - 04/30/2017 11:02 AM EDT To procedure room 4 via stretcher. Onto table in supine positioning. Given additional pillows underknees for comfort. All monitors, O2, safety strap in place. Med's per protocol. * Jasmyn Price, PT - 04/30/2017 10:01 AM EDT Physical Therapy Contact Note PT services continue to follow, PT tx held at this time secondary to pt off of floor to IR for (R)YG drain placement this am. Will continue to follow and will re-attempt when appropriate later today vs tomorrow AM. Per report, anticipate D/C ready tomorrow - pt would benefit from home with assist. Please page this business writer if you have any questions, thank you. Jasmyn Price, PT Pager #[phone] Physical Therapy Inpatient Rehabilitation * Chau Lei - 04/30/2017 8:40 AM EDT [facility] Encounter Note Patient Name: Wendy Sandoval : [id number] MR#: [id number] Admit Date: 04/26/2017 6:09 AM Hospital Day 4 days Narrative: Visited to assess need for life sciences teacher services Assessment: Patent stated that she was fine and didn't need to see a knife finisher Intervention and Outcome: None Follow-up: [facility] services remain available Time in Direct Care: 2 minutes Chau Lei 04/30/2017 * Shannan Galan RN - 04/30/2017 8:39 AM EDT [facility] NURSING DATABASE Name: WENDY SANDOVAL Date of : 1965 AGE 51 y.o. [address]: [address] [place] [phone] (home) [phone] (work) Mobile: Telephone Information: Referring Provider: Ria Menendez REASON FOR VISIT: Laterality Right Reason for exam and clinical history: s/p breast reconstruction with bilateral tissue expanders, high drain output, RIGHT breast drain dislodged partially dislodged (still in place), need to replace to prevent fluid accumulation around factory helper Exam/Procedure requested: drain repalcement Is the patient ? No Is the patient on anticoagulant / anitplatelet therapy ? Low Molecular Weight Heparin Procedure Indication: High fluid output; drain malpositioned ?? Presenting Diagnosis/ Complaint: Wendy Sandoval is a 51 y.o. female with breast CA to the left. Pt underwent bilateral breast reconstruction after mastectomy with SALVADOR flaps (04/26/17); complicated by intraoperative demise followed by Tissue Principal Statistical Programmer placement. ?? Patient has a RIGHT breast insitu with large volume output. The drain has become partially dislodged. ?? Assessment: 51 y.o. female with breast CA to the left. Pt underwent bilateral breast reconstructionafter mastectomy with SALVADRO flaps (04/26/17); complicated by intraoperative demise followed by Tissue Principal Statistical Programmer placement. ?? Patient has a RIGHT breast insitu with large volume output. The drain has become partially dislodged. ? Plan: Replacement of right breast drain ?? Labs to be performed day of procedure: none Medication to STOP: none Sedation: Fentanyl vs moderate sedation Planned access site: RIGHT breast Consent: Pending Allergies Allergen Reactions ??? Pcn [Penicillins] ??? Zoloft [Sertraline] PSORIASIS FLARE Pertinent PMH: Patient Active Problem List Diagnosis Code ??? Hypertension I10 ??? Depression F32.9 ??? Obstructive sleep apnea (adult) (pediatric) G47.33 ??? OA (osteoarthritis) M19.90 ??? Overweight(278.02) E66.3 ??? Hyperparathyroidism E21.3 ??? Malignant neoplasm of upper-outer quadrant of left breast in female, estrogen receptor [id number], Z17.0 ??? Status post bilateral breast reconstruction Z98.890 Pertinent PSH: Past Surgical History: Procedure Laterality Date ??? BREAST BIOPSY Right 11/01 ??? SECTION x 2 ??? HAND SURGERY Right ??? PRG EMG, LARYNX N/A 11/02/2015 FACIAL NERVE MONITORING, SETUP LARYNGEAL performed by Valentina Lucas MD at [facility] MAIN OR ??? PRO BREAST RECONSTRUC W FREE FLAP Bilateral 04/26/2017 @BREAST RECONSTRUCTION W/ FREE FLAP, SUSAN (WRVU 42.58) performed by Mali Lakhani MD at [facility] [place] ??? PRO BREAST RECONSTRUC W TISS EXPANDR Bilateral 04/26/2017 BREAST RECONSTRUCTION, IMMEDIATE OR DELAYED, W/ TISSUE COLLEGE OR UNIVERSITY REGISTRAR, INCLUDING SUBSEQUENT EXPANSION (WRVU 18.5) performed by Mali Lakhani MD at [facility] MAIN OR ??? PRO EXPLORE PARATHYROID GLANDS N/A 11/02/2015 PARATHYROIDECTOMY OR EXPLORATION OF PARATHYROID(S) performed by Valentina Lucas MD at [facility] OR ? ? PRO FULL THICK GRFT TRUNK <20 SQCM Bilateral 04/26/2017 FTSG, FREE, DIR CLOSE DONOR SITE, TRUNK, 20 SQ CM OR LESS (WRVU 9.15) performed by Mali Lakhani MD at [facility] OR ??? PRO MASTECTOMY, SIMPLE, COMPLETE Bilateral 04/26/2017 MASTECTOMY, SIMPLE, COMPLETE-SUSAN (WRVU 15.85) performed by Ria Menendez MD at [facility] OR ??? PRO PARTIAL REMOVAL OF RIB Bilateral 04/26/2017 EXCISION OF RIB, PARTIAL (WRVU 7.26) performed by Mali Lakhani MD at [facility] OR ??? PRO REMOVE ARMPITS LYMPH NODES COMPLT Left 04/26/2017 LYMPHADENECTOMY, AXILLARY, COMPLETE (WRVU 13.87) performed by Ria Menendez MD at [facility] OR ??? PRO THYMECTOMY, TRANSCERVICAL N/A 11/02/2015 THYMECTOMY, TRANSCERVICAL APPROACH performed by Valentina Lucas MD at [facility] OR ??? SHOULDER SURGERY Left ??? UMBILICAL HERNIA REPAIR Date/Procedure Med's given/comments 04/30/2017 Right breast drain exchange and repositioning, 10Fr. Versed 2mg IV, Fentanyl 100mcg IV. Tolerated well. Laboratory Results: Lab Results Component Value Date CREATININE 1.00 04/30/2017 Lab Results Component Value Date K 3.8 04/30/2017 Lab Results Component Value Date PLATELET 350 04/30/2017 Medications: Prior to Admission medications Medication Sig Start Date End Date Taking? Authorizing Provider valsartan-hydrochlorothiazide (DIOVAN-HCT) 160-12.5 mg Tablet Take 1 tablet by mouth daily. 02/20/17 Yes PROVIDER, HISTORICAL levothyroxine (SYNTHROID) 112 mcg Tablet Take 1 tablet by mouth daily. 01/25/17 Yes PROVIDER, HISTORICAL atorvastatin (LIPITOR) 20 mg Tablet Take 1 tablet by mouth daily. 03/02/17 Yes PROVIDER, HISTORICAL triamcinolone (ARISTOCORT) 0.5 % Cream Apply topically 3 times daily. Yes PROVIDER, HISTORICAL DILTiazem (CARDIZEM CD) 240 mg Capsule, Sust. Release 24 hr Take 1 capsule by mouth daily. 07/26/15 Yes PROVIDER, HISTORICAL norethindrone (AYGESTIN) 5 mg Tablet Take 1 tablet by mouth daily. 09/30/15 Yes PROVIDER, HISTORICAL ferrous gluconate 324 mg (37.5 mg iron) Tablet Take 324 mg by mouth daily. Yes PROVIDER, HISTORICAL clobetasol (TEMOVATE) 0.05 % Cream Apply to affected areas on knees, elbows and hands twice daily for two week cycles as needed. 04/16/14 Yes Ernestine Gaines MD fluoxetine (PROZAC) 40 mg capsule daily. 10/31/12 Yes PROVIDER, HISTORICAL KLOR-CON M20 20 mEq extended release tablet 2 times daily. 10/31/12 Yes PROVIDER, HISTORICAL acetaminophen (TYLENOL) 325 mg Tablet Take 2 tablets by mouth every 4 hours as needed for Pain. 11/03/15 Nathaly Saenz APRN * Alma Castillo PA - 04/30/2017 8:25 AM EDT PLASTIC SURGERY INPATIENT PROGRESS NOTE Attending: MALI LAKHANI Patient Location: [address] [place] [address] Hospital Admission Date: 04/26/2017 ID: Wendy Sandoval is a 51 y.o. female patient with hx of JACQUELYN on CPAP, HTN, hyperlipidemia, and breast CA to the left. Pt underwent bilateral breast reconstruction after mastectomy with SALVADOR flapscomplicated by intraoperative demise followed by Tissue Principal Statistical Programmer placement with FNG. POD5 S/IE: No acute events overnight. Continues to feel better each day.. Pain control much improved. Tolerating diet, no nausea or vomiting. Right breast drain partially dislodged. No longer holding suction as channels are outside the wound, but continues to act as stent with considerable serous drainage around drain, to IR today for drain placement on Right side. O: Vitals: Last value Range last 24 hrs Temperature Temp: 37.1 ??C (98.8 ??F) Temp: [37 ??C (98.6 ??F)-37.3 ??C (99.1 ??F)] Heart Rate 80s Heart Rate: [82] Blood Pressure BP: (!) 160/92 BP: (140-160)/(84-93) Respiratory Rate Resp: 16 Resp: [16-18] SpO2 SpO2: 96 % SpO2: [95 %-98 %] Intake/Output Summary (Last 24 hours) at 04/30/17 0825 Last data filed at 04/30/17 0806 Gross per 24 hour Intake 960 ml Output 2525 ml Net -1565 ml Drains: Left abdomen 440 Right abdomen 70 Left breast 515 Right breast 335 (likely underestimate due to fluid draining around drain) General: well developed, well nourished, appearing in no acute distress, pleasant, cooperative, resting comfortably HEENT: atraumatic, normocephalic Respiratory: nonlabored, symmetric chest movement Cardiovascular: RRR Breasts: Mild bruising of mastectomy flaps bilaterally, no sign of mastectomy flap necrosis, nipplebolsters in place, incisions clean dry and intact, + fluid accumulation in right lateral breast, right breast drain in place but partially dislodged, drainage serosanguineous Abdomen: postoperative abdominal binder in place, transverse abdominal incision c/d/i, umbilicus dusky but viable, drains serosang Extremities: no cyanosis, no edema, warm/dry Labs: Last wbc, hgb, hct plt Recent Labs 04/30/17 0327 WBC 14.7* HGB 11.5* HCT 34.5* Last 3 Coags No results for input(s): PT, INR, PTT in the last 168 hours. Last Ca, Mg, Phos Recent Labs 04/30/17 0327 04/27/17 0100 CALCIUM 8.3* < > 7.2* PHOS -- -- 6.3* < > = values in this interval not displayed. Last 3 Lytes Recent Labs 04/30/17 0327 04/29/17 0809 04/28/17 0426 NA 145 142 139 K 3.8 3.5 3.2* CL 106 104 102 CO2 26 25 23 BUN 16 16 29* CREATININE 1.00 0.89 1.09 Last 3 wbc, hgb, hct plt Recent Labs 04/30/17 0327 04/29/17 0809 04/28/17 0426 WBC 14.7* 15.7* 18.0* HGB 11.5* 11.8 10.7* HCT 34.5* 34.6* 31.6* PLATELET 350 300 289 A/P: Wendy Sandoval is a 51 y.o. female patient s/p mastectomy bilat and attempted SALVADOR reconstruction complicated but intraoperative flap compromise converted to bilateral TE placement with FNG. Post operative course complicated by pain. POD5. Will consult IR this AM to replace right breast drain, will need this done in setting of TE placement and high drain output Tylenol, ibuprofen, and dilaudid for pain. Regular diet, NPO at [place] for procedure Ambulation as tolerated Pt will need VNA upon discharge Discharge planning for Sunday pending pt condition Future Appointments Date Time Provider Department Center 04/30/2017 9:00 AM [facility] PENDING IR IR [facility] 05/07/2017 10:00 AM Romy Abarca, PT PT Rehab [facility] 05/14/2017 9:00 AM NURSE, PLASTIC SURGERY [facility] 05/14/2017 10:00 AM Ria Menendez MD [facility] 05/14/2017 3:30 PM Gustavo Mota MD [facility] 05/21/2017 8:[address] [facility] 05/21/2017 9:00 AM Emily Choi MD [facility] Alma Castillo PA-C Plastic Surgery Pager [phone] * Diana Azevedo, CLOTH PRINTER HELPER - 04/30/2017 8:16 AM EDT INTERVENTIONAL RADIOLOGY FOCUSED H&P and PRE-PROCEDURE NOTE: PCP: Trinh Coates MD Referring Provider: Ria Menendez Planned Procedure: Replacement of RIGHT breast drain Procedure Indication: High fluid output; drain malpositioned Presenting Diagnosis/ Complaint: Wendy Sandoval is a 51 y.o. female with breast CA to the left. Pt underwent bilateral breast reconstruction after mastectomy with SALVADOR flaps (04/26/17); complicated by intraoperative demise followed by Tissue Principal Statistical Programmer placement. Patient has a RIGHT breast insitu with large volume output. The drain has become partially dislodged. Past Medical/Surgical History: Patient Active Problem List Diagnosis Code ??? Hypertension I10 ??? Depression F32.9 ??? Obstructive sleep apnea (adult) (pediatric) G47.33 ??? OA (osteoarthritis) M19.90 ??? Overweight(278.02) E66.3 ??? Hyperparathyroidism E21.3 ??? Malignant neoplasm of upper-outer quadrant of left breast in female, estrogen receptor [id number], Z17.0 ??? Status post bilateral breast reconstruction Z98.890 Past Medical History: Diagnosis Date ??? Fibrocystic [...] LARYNGEAL performed by Valentina Lucas MD at [facility] MAIN OR ??? PRO BREAST RECONSTRUC W FREE FLAP Bilateral 04/26/2017 @BREAST RECONSTRUCTION W/ FREE FLAP, SUSAN (WRVU 42.58) performed by Mali Lakhani MD at [facility] [place] ??? PRO BREAST RECONSTRUC W TISS EXPANDR Bilateral 04/26/2017 BREAST RECONSTRUCTION, IMMEDIATE OR DELAYED, W/ TISSUE COLLEGE OR UNIVERSITY REGISTRAR, INCLUDING SUBSEQUENT EXPANSION (WRVU 18.5) performed by Mali Lakhani MD at [facility] OR ??? PRO EXPLORE PARATHYROID GLANDS N/A 11/02/2015 PARATHYROIDECTOMY OR EXPLORATION OF PARATHYROID(S) performed by Valentina Lucas MD at [facility] OR ? ? PRO FULL THICK GRFT TRUNK <20 SQCM Bilateral 04/26/2017 FTSG, FREE, DIR CLOSE DONOR SITE, TRUNK, 20 SQ CM OR LESS (WRVU 9.15) performed by Mali Lakhani MD at [facility] OR ??? PRO MASTECTOMY, SIMPLE, COMPLETE Bilateral 04/26/2017 MASTECTOMY, SIMPLE, COMPLETE-SUSAN (WRVU 15.85) performed by Ria Menendez MD at [facility] OR ??? PRO PARTIAL REMOVAL OF RIB Bilateral 04/26/2017 EXCISION OF RIB, PARTIAL (WRVU 7.26) performed by Mali Lakhani MD at [facility] OR ??? PRO REMOVE ARMPITS LYMPH NODES COMPLT Left 04/26/2017 LYMPHADENECTOMY, AXILLARY, COMPLETE (WRVU 13.87) performed by Ria Menendez MD at [facility] OR ??? PRO THYMECTOMY, TRANSCERVICAL N/A 11/02/2015 THYMECTOMY, TRANSCERVICAL APPROACH performed by Valentina Lucas MD at [facility] OR ??? SHOULDER SURGERY Left ??? UMBILICAL HERNIA REPAIR Medications: Scheduled Meds: ??? potassium chloride 20 mEq Oral BID ??? DILTiazem 240 mg Oral Daily ??? ferrous gluconate 324 mg Oral Daily ??? FLUoxetine 40 mg Oral Daily ??? levothyroxine 112 mcg Oral Daily ??? norethindrone 5 mg Oral Daily ??? sodium chloride 0.9 % 5 mL Intravenous BID ??? Lactobacillus 1 tablet Oral Daily ??? docusate sodium 100 mg Oral BID ??? enoxaparin 40 mg Subcutaneous Nightly ??? atorvastatin 20 mg Oral QPM ??? valsartan 160 mg Oral Daily ??? hydroCHLOROthiazide 12.5 mg Oral Daily ??? acetaminophen 650 mg Oral Q4H GE[place]A Continuous Infusions: PRN Meds:.oxyCODONE OR oxyCODONE OR oxyCODONE, ibuprofen, labetalol, sodium chloride 0.9 %,lidocaine, bisacodyl, ondansetron OR ondansetron, polyethylene glycol, HYDROmorphone, thrombn (Hum Plas)-Fib-Apro-Ca, verapamil, bacitracin Allergies: Pcn [penicillins] and Zoloft [sertraline] Social [...] Labs: Lab Results Component Value Date WBC 14.7 (H) 04/30/2017 HCT 34.5 (L) 04/30/2017 PLATELET 350 04/30/2017 BUN 16 04/30/2017 CREATININE 1.00 04/30/2017 ALKPHOS 79 03/29/2017 AST 12 03/29/2017 ALBUMIN 3.9 03/29/2017 BILITOT 0.5 03/29/2017 ALT 21 03/29/2017 PROT 6.6 03/29/2017 GEN: NAD CV: RRR No R/G/M PULM: CTA bilaterally ASA 3 MALLAMPATI 2 Assessment: 51 y.o. female with breast CA to the left. Pt underwent bilateral breast reconstructionafter mastectomy with SALVADOR flaps (04/26/17); complicated by intraoperative demise followed by Tissue Principal Statistical Programmer placement. Patient has a RIGHT breast insitu with large volume output. The drain has become partially dislodged. Plan: Replacement of right breast drain Labs to be performed day of procedure: none Medication to STOP: none Sedation: Fentanyl vs moderate sedation Planned access site: RIGHT breast Consent: Pending 04/30/2017 * Yo Krueger MD - 04/29/2017 11:53 AM EDT PLASTIC SURGERY INPATIENT PROGRESS NOTE Attending: MALI LAKHANI Patient Location: [address] [place] [address] Hospital Admission Date: 04/26/2017 ID: Wendy Sandoval is a 51 y.o. female patient with hx of JACQUELYN on CPAP, HTN, hyperlipidemia, and breast CA to the left. Pt underwent bilateral breast reconstruction after mastectomy with SALVADOR flapscomplicated by intraoperative demise followed by Tissue Principal Statistical Programmer placement with FNG. POD3 S/IE: No acute events overnight. Continues to feel better each day.. Pain control much improved. Tolerating diet, no nausea or vomiting. Right breast drain partially dislodged. No longer holding suction as channels are outside the wound, but continues to act as stent with considerable serous drainage around drain. O: Vitals: Last value Range last 24 hrs Temperature Temp: 36.7 ??C (98.1 ??F) Temp: [36.6 ??C (97.9 ??F)-37.5 ??C (99.5 ??F)] Heart Rate 80s Heart Rate: [92] Blood Pressure BP: (!) 158/92 (manual) BP: (150-163)/(90-102) Respiratory Rate Resp: 16 Resp: [16-18] SpO2 SpO2: 97 % SpO2: [93 %-97 %] Intake/Output Summary (Last 24 hours) at 04/29/17 1153 Last data filed at 04/29/17 1100 Gross per 24 hour Intake 840 ml Output 2845 ml Net -2005 ml Drains: Left abdomen 465 Right abdomen 150 Left breast 500 Right breast 295 (likely underestimate due to fluid draining around drain) General: well developed, well nourished, appearing in no acute distress, pleasant, cooperative, resting comfortably, MACHINE OPERATOR HOP PICKER at bedside performing sponge bath HEENT: atraumatic, normocephalic Respiratory: nonlabored, symmetric chest movement Cardiovascular: RRR Breasts: Mild bruising of mastectomy flaps bilaterally, no sign of mastectomy flap necrosis, nipplebolsters in place, incisions clean dry and intact, no sign of fluid accumulation in right breast, right breast drain in place but partially dislodged, drainage serosanguineous Abdomen: postoperative abdominal binder in place, transverse abdominal incision c/d/i, umbilicus dusky but viable, drains serosang Extremities: no cyanosis, no edema, warm/dry Labs: Last wbc, hgb, hct plt Recent Labs 04/29/17 0809 WBC 15.7* HGB 11.8 HCT 34.6* Last 3 Coags No results for input(s): PT, INR, PTT in the last 168 hours. Last Ca, Mg, Phos Recent Labs 04/29/17 0809 04/27/17 0100 CALCIUM 7.9* < > 7.2* PHOS -- -- 6.3* < > = values in this interval not displayed. Last 3 Lytes Recent Labs 04/29/17 0809 04/28/17 0426 04/27/17 0100 NA 142 139 140 K 3.5 3.2* 3.4* CL 104 102 98 CO2 25 23 18* BUN 16 29* 25* CREATININE 0.89 1.09 1.40* Last 3 wbc, hgb, hct plt Recent Labs 04/29/17 0809 04/28/17 0426 04/27/17 0100 WBC 15.7* 18.0* 22.7* HGB 11.8 10.7* 12.0 HCT 34.6* 31.6* 36.3 PLATELET 300 289 337 A/P: Wendy Sandoval is a 51 y.o. female patient s/p mastectomy bilat and attempted SALVADOR reconstruction complicated but intraoperative flap compromise converted to bilateral TE placement with FNG. Post operative course complicated by pain. POD3. Will consult IR in AM to replace right breast drain, will need this done in setting of TE placementand high drain output Tylenol, ibuprofen, and dilaudid for pain. Regular diet, NPO at WA for procedure Ambulation as tolerated Pt will need VNA upon discharge Future Appointments Date Time Provider Department Center 05/07/2017 10:00 AM Romy Abarca, PT PT Rehab [facility] 05/14/2017 9:00 AM NURSE, PLASTIC SURGERY [facility] 05/14/2017 10:00 AM Ria Menendez MD [facility] S[facility] 05/14/2017 3:30 PM Gustavo Mota MD [facility] Hem Onc [facility] 05/21/2017 8:[address] [facility] 05/21/2017 9:00 AM Emily Choi MD [facility] Yo Krueger MD Plastic Surgery, PGY-4 [phone] * Yo Krueger MD - 04/28/2017 11:07 AM EST PLASTIC SURGERY INPATIENT PROGRESS NOTE Attending: MALI LAKHANI Patient Location: [address] [place] [address] Hospital Admission Date: 04/26/2017 ID: Wendy Sandoval is a 51 y.o. female patient with hx of JACQUELYN on CPAP, HTN, hyperlipidemia, and breast CA to the left. Pt underwent bilateral breast reconstruction after mastectomy with SALVADOR flapscomplicated by intraoperative demise followed by Tissue Principal Statistical Programmer placement with FNG. POD2. S/IE: No acute events overnight. Feeling much better today. Pain control much improved. Tolerating diet, no nausea or vomiting. Has not yet ambulated. Tachycardia has resolved. O: Vitals: Last value Range last 24 hrs Temperature Temp: 37.1 ??C (98.8 ??F) Temp: [37.1 ??C (98.8 ??F)-38.3 ??C (100.9 ??F)] Heart Rate 80s Heart Rate: [110] Blood Pressure BP: (!) 150/98 BP: (134-167)/(83-105) Respiratory Rate Resp: 16 Resp: [15-17] SpO2 SpO2: 94 % SpO2: [91 %-94 %] Intake/Output Summary (Last 24 hours) at 04/28/17 1107 Last data filed at 04/28/17 0900 Gross per 24 hour Intake 1020 ml Output 3575 ml Net -2555 ml Drains: Left abdomen 190 Right abdomen 200 Left breast 430 Right breast 190 General: well developed, well nourished, appearing in no acute distress, pleasant, cooperative, resting comfortably, empty breakfast tray at bedside HEENT: atraumatic, normocephalic Respiratory: nonlabored, symmetric chest movement Cardiovascular: RRR Breasts: Mild bruising of mastectomy flaps bilaterally, no sign of mastectomy flap necrosis, nipplebolsters in place, incisions clean dry and intact, drains serosanguineous Abdomen: postoperative abdominal binder in place, transverse abdominal incision c/d/i, umbilicus dusky but viable, drains serosang Extremities: no cyanosis, no edema, warm/dry Labs: Last wbc, hgb, hct plt Recent Labs 04/28/17425 WBC 18.0* HGB 10.7* HCT 31.6* Last 3 Coags No results for input(s): PT, INR, PTT in the last 168 hours. Last Ca, Mg, Phos Recent Labs 04/28/17 04204/27/17 0100 CALCIUM 7.3* 7.2* PHOS -- 6.3* Last 3 Lytes Recent Labs 04/28/17 0426 04/27/17 0100 03/29/17 1021 NA 139 140 141 K 3.2* 3.4* 3.7 CL 102 98 101 CO2 23 18* 27 BUN 29* 25* 16 CREATININE 1.09 1.40* 1.01 Last 3 wbc, hgb, hct plt Recent Labs 04/28/17 0426 04/27/17 0100 03/29/17 1021 WBC 18.0* 22.7* 16.3* HGB 10.7* 12.0 14.3 HCT 31.6* 36.3 41.6 PLATELET 289 337 341 A/P: Wendy Sandoval is a 51 y.o. female patient s/p mastectomy bilat and attempted SALVADOR reconstruction complicated but intraoperative flap compromise converted to bilateral TE placement with FNG. Post operative course complicated by pain. POD2. Tylenol and dilaudid for pain. Can add ibuprofen tomorrow. Regular diet Continue drain care and output monitoring Ambulation as tolerated Pt will need VNA upon discharge Future Appointments Date Time Provider Department Center 05/07/2017 10:00 AM Romy Abarca PT PT Rehab [facility] 05/14/2017 9:00 AM NURSE, PLASTIC SURGERY [facility] 4[facility] 05/14/2017 10:00 AM Ria Menendez MD [facility] S[facility] 05/14/2017 3:30 PM Gustavo Mota MD [facility] Hem Onc [facility] 05/21/2017 8:30 AM Rad Nurse, [facility] 05/21/2017 9:00 AM Emily Choi MD [facility] Yo Krueger MD Plastic Surgery, PGY-4 [phone] Associated attestation - Jarod Damico MD - 04/28/2017 11:54 AM EST I have seen and examined this patient today covering for my colleague Dr. Lakhani. I have reviewed plans and agree with above. * Corey Barros RN - 04/27/2017 3:35 PM EST 1535: Portable cxr done at bedside.12-lead done at bedside as ordered. * Alma Castillo PA - 04/27/2017 10:15 AM EST PLASTIC SURGERY INPATIENT PROGRESS NOTE Attending: MALI LAKHANI Patient Location: [address] Hospital Admission Date: 04/26/2017 ID: Wendy Sandoval is a 51 y.o. female patient with hx of JACQUELYN on CPAP, HTN, hyperlipidemia, and breast CA to the left. Pt underwent bilateral breast reconstruction after mastectomy with SALVADOR flapsthat failed intraoperatively and then Tissue Principal Statistical Programmer placement with FNG. POD1. S: No acute events overnight Reports belly and chest pain this morning Has been able to take PO liquids On regular diet Has not ambulated O: Patient Vitals for the past 8 hrs: BP Temp Temp src Pulse Resp SpO2 04/27/17 0700 158/78 38.2 ??C (100.8 ??F) - - 16 96 % 04/27/17 0644 154/76 - - - 20 92 % 04/27/17 0545 - 37.1 ??C (98.8 ??F) Temporal (!) 111 14 95 % 04/27/17 0500 158/81 - - (!) 111 15 95 % 04/27/17 0459 - - - (!) 111 13 95 % 04/27/17 0400 157/81 - - (!) 122 21 95 % 04/27/17 0349 - - - (!) 105 10 95 % 04/27/17 0330 158/79 - - (!) 116 17 95 % 04/27/17 0315 163/88 - - (!) 103 11 94 % 04/27/17 0300 162/81 36.6 ??C (97.9 ??F) Temporal (!) 115 24 95 % 04/27/17 0245 166/85 - - (!) 104 11 94 % 04/27/17 0230 152/83 - - (!) 104 11 93 % Temp: [36.6 ??C (97.9 ??F)-38.2 ??C (100.8 ??F)] Heart Rate: [101-122] Resp: [9-24] BP: (146-167)/(76-89) Intake/Output Summary (Last 24 hours) at 04/27/17 1016 Last data filed at 04/27/17 0629 Gross per 24 hour Intake 3770 ml Output 1260 ml Net 2510 ml Drains: Left abdomen 40 Right abdomen 45 Left breast 80 Right breast 90 General: well developed, well nourished, appearing in no acute distress, pleasant, cooperative, resting comfortably HEENT: atraumatic, normocephalic Respiratory: nonlabored, symmetric chest movement Cardiovascular: RRR Breasts: postop bra on, bilat breast with TE, expected postop ecchymosis bilat, bilat FNG with bolsters on, YG with ss output, tender on palpation Abdomen: postoperative abdominal binder in place, postoperative dressings clean/dry/intact, transverse abdominal incision c/d/i, abdomen nondistended, appropriately tender, bilateral YG drains intactwith SS output and good suction Umbilicus: viable, incisions clean/dry/intact, no erythema Extremities: no cyanosis, no edema, warm/dry Labs: Last wbc, hgb, hct plt Recent Labs 04/27/17 0100 WBC 22.7* HGB 12.0 HCT 36.3 Last 3 Coags No results for input(s): PT, INR, PTT in the last 168 hours. Last Ca, Mg, Phos Recent Labs 04/27/17 0100 CALCIUM 7.2* PHOS 6.3* Last 3 Lytes Recent Labs 04/27/17 0100 03/29/17 1021 NA 140 141 K 3.4* 3.7 CL 98 101 CO2 18* 27 BUN 25* 16 CREATININE 1.40* 1.01 Last 3 wbc, hgb, hct plt Recent Labs 04/27/17 0100 03/29/17 1021 WBC 22.7* 16.3* HGB 12.0 14.3 HCT 36.3 41.6 PLATELET 337 341 Prealbumin: Cultures: Pathology: Imaging: A/P: Wendy Sandoval is a 51 y.o. female patient s/p mastectomy bilat and failed SALVADOR reconstruction, thus, TE placement with FNG bilaterally. POD1. Added PO dilaudid 2mg for breakthrough pain on top of 5-10mg oxycodone and scheduled tylenol Regular diet Continue drain care and output monitoring Ambulation as tolerated Pt will need VNA upon discharge Continue in patient status until pain is more control, pt is able to eat and ambulate Future Appointments Date Time Provider Department Center 05/07/2017 10:00 AM Romy Abarca, PT PT Rehab [facility] 05/14/2017 9:00 AM NURSE, [facility] 05/14/2017 10:00 AM Ria Menendez MD [facility] 05/14/2017 3:30 PM Gustavo Mota MD [facility] Hem Onc [facility] 05/21/2017 8:[address] [facility] 05/21/2017 9:00 AM Emily Choi MD [facility] Alma Castillo PA-C Plastic Surgery Pager [phone] * Lucina Pedersen MD - 04/27/2017 3:09 AM EST Post-Operative Check Wendy Sandoval is a 51 y.o. female s/p Procedure(s): @BREAST RECONSTRUCTION W/ FREE FLAP, SUSAN (WRVU 42.58) EXCISION OF RIB, PARTIAL (WRVU 7.26) MASTECTOMY, SIMPLE, COMPLETE-SUSAN (WRVU 15.85) MODIFIER , NIPPLE SPARING LYMPHADENECTOMY, AXILLARY, COMPLETE (WRVU 13.87) BREAST RECONSTRUCTION, IMMEDIATE OR DELAYED, W/ TISSUE COLLEGE OR UNIVERSITY REGISTRAR, INCLUDING SUBSEQUENT EXPANSION (WRVU 18.5) FTSG, FREE, DIR CLOSE DONOR SITE, TRUNK, 20 SQ CM OR LESS (WRVU 9.15) S: No nausea/vomiting, chest pain, SOB, pain well controlled, offers no complaints. Describes throat hoarseness, very sleepy during encounter. O: Temp: -- Heart Rate: -- Resp: -- BP: -- SpO2: -- Heart Rate from SPO2: -- I/O last 3 completed shifts: In: 4000 [I.V.:4000] Out: 495 [Urine:415; Blood:80] I/O this shift: In: 1600 [I.V.:1600] Out: 185 [Urine:85; Blood:100] No results found for this or any previous visit (from the past 24 hour(s)). Physical Exam Gen: A0x3, NAD, resting comfortably Chest: L breast YG: 50 serosang R breast YG: 50 serosang CVS: RRR Resp: CTAB, breathing comfortably on 3L NC Abd: soft, appropriately tender, nondistended L abd YG: 20 ml serosang R abd YG: 10 ml serosang : treviño in place, clear urine in bag Ext: SCDs in place, WWP AP Wendy Sandoval is a 51 y.o. female s/p bilateral mastectomy and autologous tissue reconstruction complicated by pleural injury requiring YG drain placement into chest wall, currently in stable condition and recovering well - continue post operative plan per primary team - pain well controlled - hemodynamically stable, UOP adequate (165 cc since OR) Lucina Pedersen MD 04/27/2017 * Veronica Gardner RN - 04/27/2017 1:06 AM EST 0045- Pt arrived in PACU from OR. Attached to monitors, Alarm parameters adjusted to pt and appropriate. Alarms audible. VSS. Pt sedated, nasal airway in place. [address], see flowsheet. Treviño catheter in place draining clear yellow urine. Waist bending at 30 degrees per orders. Surgicalbra in place, insicion sites WNL. See PACU flowsheet for further assessment. 0100- Labs drawn and sent. Pt continues to do well. 0120- Abdominal binder placed per orders. Back free from injury, meplex on sacrum 0200- Pt continues to do well, VSS. Working on pain control. See flowsheet for further information. 0300- Sol RENEE at bedside- reviewed labs and chest xray. pt meets phase 1 discharge criteria. Pain1/10, no n/v. VSS. Pt taking sips of water and tolerating well. Surgical bra in place, abdominal binder in place, 4 YG drains with small amt of drainage. Urine output appropriate. Lower abdominal dressing c/d/i. Bilateral breat incisions WNL with minimal drainage or swelling. Pt able to move all extremities with equal strength. Pt alert and oriented resting intermittently. 0330- Viral RENEE at bedside. VSS. Pt resting intermittently. 0700- Spoke with plastics international travel consultant sand conditioner regaurding pts pain 6/10 and getting worse. All pain medications utilized at this time. Per international travel consultant fine to give another 5mg now since only 5mg was given at 0450. 0715- Report given to Mariel in PACU. documented in this encounter H&P Notes * Kaveh Whiteside MD - 04/26/2017 7:22 AM EST INTERVAL H&P CC: breast Ca S: Wendy Sandoval's condition is unchanged since H&P originally performed. Denies any new ED visits, hospitalizations, trauma, or new events. Has been overall doing well. Past Medical History: Diagnosis Date ??? Fibrocystic [...] LARYNGEAL performed by Valentina Lucas MD at [facility] MA[facility] OR ??? PRO EXPLORE PARATHYROID GLANDS N/A 11/02/2015 PARATHYROIDECTOMY OR EXPLORATION OF PARATHYROID(S) performed by Valentina Lucas MD at [facility] MAIN OR ??? PRO THYMECTOMY, TRANSCERVICAL N/A 11/02/2015 THYMECTOMY, TRANSCERVICAL APPROACH performed by Valentina Lucas MD at [facility] MAIN OR ??? SHOULDER SURGERY Left ??? UMBILICAL HERNIA REPAIR Allergies Allergen Reactions ??? Pcn [Penicillins] ??? Zoloft [Sertraline] PSORIASIS FLARE No current facility-administered medications on file prior to encounter. Current Outpatient Prescriptions on File Prior to Encounter Medication Sig Dispense Refill ??? valsartan-hydrochlorothiazide (DIOVAN-HCT) 160-12.5 mg Tablet Take [...] extended release tablet 2 times daily. ??? acetaminophen (TYLENOL) 325 mg Tablet Take 2 tablets by mouth every 4 hours as needed for Pain. Family History Problem Relation Age of Onset [...] ??? Ovarian Cancer Neg Hx Social History Social History ??? Marital status: [...] ??? Not on file Social History Narrative Review of Systems: Constitutional: denies fever, chills Skin: denies any new growths orrashes HEENT: denies head ache,no recent upper respiratory sx Resp: denies any SOB, CALDERÓN CV: No CP, no palpitations GI: denies abd pain, vomiting : denies dysuria, hematuria PV: denies past DVT, claudication MS: denies joint pain, swelling Neuro: denies weakness, numbness Heme/Lymph: denies bruising, bleeding Endo: no troubles with sugar, denies fatigue O: Patient Vitals for the past 24 hrs: BP Temp Temp src Pulse Resp SpO2 Height Weight 04/26/17 0619 (!) 165/91 36.9 ??C (98.4 ??F) Temporal 82 18 97 % 152.4 cm (5') 76.7 kg (169 lb) NAD, A&Ox3 Non-labored respirations, clear to auscultation bilaterally Regular rate and rhythm, no murmur on auscultation Site marked AP: 51 y.o. female with Left breast cancer. - After extensive discussion of the risks, benefits, and alteratives of surgical intervention, the patient consented to proceed with surgery. - IV antibiotics ordered - Proceed to OR for: Procedure(s): @BREAST RECONSTRUCTION W/ FREE FLAP, SUSAN (WRVU 42.58) EXCISION OF RIB, PARTIAL (WRVU 7.26) MASTECTOMY, SIMPLE, COMPLETE-SUSAN (WRVU 15.85) MODIFIER , NIPPLE SPARING LYMPHADENECTOMY, AXILLARY, COMPLETE (WRVU 13.87) Opioid PDMP 04/05/2017 [place] PD[place] Query Date 04/26/2017 [place] QUERY DATE: 04/26/17 Risk Assessment Category: Amrik Sandoval is getting a prescription opioid for the treatment of acute post-operative pain related to the surgical procedure during this encounter. Pt has been advised to take the smallest dose possible to control pain and as the pain improves to take smaller doses and increase the time between doses. In addition to this medication, pt was educated on the non-opioid pain medications that can be taken for adjunct treatment of pain. Non-pharmacological treatments were also discussed that include but not limited to ice, elevation, and activity modification as appropriate. The Acute Opioid Therapy Informed Consent form has been completed during this encounter and sent tomedical records for scanning to chart. Future Appointments Date Time Provider Department Center 05/14/2017 9:00 AM NURSE, PLASTIC SURGERY [facility] [address] Kaveh Whiteside MD Plastic Surgery Resident, PGY-7 * Ria Menendez MD - 04/26/2017 7:12 AM EST ROSEMARY Nguyen is a 51 yo female who presents today in surgical consultation at the request of Dr. Shaffer.She presents with her to discuss newly diagnosed left breast cancer. Wendy presented for screening mammogram in February,. This revealed a new mass in the upper, outer left breast. Callback imaging confirmed a suspicious 2cm mass. The right breast was normal. Biopsy revealed stronglyER/KY+, HER2- IDC. MRI was then obtained for surgical planning. This revealed a possible second lesion 2 cm from the index lesion as well as abnormal appearing nodes. The right breast was normal. Additional imaging of the left is indicated. Wendy is quite worried about her diagnosis particularly in light of her very strong family history. She is physically feeling okay. She denies any known breast masses, skin changes, nipple discharge or adenopathy. ?? SH: with son and daughter ?? FH; strong FH of breast and colorectal cancer ?? Mother - in her 60's (?DCIS), lumpectomy and radiotherapy. Now A&W age 76. Elsa - at age 39 who developed a contralateral BR CA at age 50. Marky - diagnosed two years ago at age 46 with Stg IV BR CA. ??Currently in remission, doing ok. Cousin did not have genetic testing done. ?? PMH Hypercholesterolemia hypothyroidism Hypertension Nephrolithiasis H/o primary hyparathyroidism s/p 3 gland removal ?? Review of Systems Constitutional: Positive for fatigue. HENT: Negative. Eyes: Negative. Respiratory: Negative. Cardiovascular: Negative. Gastrointestinal: Negative. Endocrine: Negative. Musculoskeletal: Negative. Skin: Negative. Allergic/Immunologic: Negative. Neurological: Negative. Hematological: Negative. Psychiatric/Behavioral: Negative. ? Objective: Physical Exam Constitutional: She is oriented to person, place, and time. She appears well- developed and well-nourished. Cardiovascular: Normal rate and regular rhythm. Pulmonary/Chest: Effort normal and breath sounds normal. Abdominal: She exhibits no mass. Musculoskeletal: Normal range of motion. Lymphadenopathy: She has no cervical adenopathy. Right: No supraclavicular adenopathy present. Left: No supraclavicular adenopathy present. Neurological: She is alert and oriented to person, place, and time. Skin: Skin is warm and dry. Psychiatric: She has a normal mood and affect. ?? Imaging: as in HPI. I have reviewed mammograms and MRI CBC with elevated WBC (16,000). Wendy has a known kidney stone but is asymptomatic currently. Plan u/s today LFTs WNL ?? Assessment and Plan: ?? 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 We discussed the findings of imaging/ testing to date. I have recommended ultrasound of breast lesion 2 as well as the nodes. This is scheduled later today. We then discussed therapeutic options. Wendy is a candidate for breast conservation with partial mastectomy (to include lesion 2 if necessary) and radiation vs mastectomy. We discussed the likelihood of post mastectomy radiation if the nodes are malignant. Wendy is a bit torn regarding family hi story. She would like to meet with genetic counseling to help assist with decision making. If positive for mutation, she would like to proceed with bilateral mastectomy and reconstruction. If negative, she may consider BCT. She is aware that her overall survival is equivalent but LRR will be slightly higher with BCT. I also advised her that her lifetime risk of developing a contra- lateral breast cancer may be as high as 80% if she is carrying a gene. We will readdress after genetic testing. ? In terms of the nodes, I advised Wendy that they are quite suspicious on MRI. If proven to be malignant, given > 2 abnormal appearing nodes on MRI, I recommend ALND at the time of surgery. I also advised Wendy that systemic adjuvant therapy will be recommended which will include endocrine therapy and very possibly chemotherapy. We will set up appointments with medical and radiation oncology post operatively. ?? I will call Wendy with results of her evaluation today. We will finalize a plan for surgical intervention at that time. ADDENDUM Node biopsy positive. Several morphologically abnormal nodes on ultrasound. Plan CT scan and bone scan to rule out metastatic disease. If negative, proceed with surgery. Wendy has decided to pursuebilateral mastectomy and autologous tissue reconstruction regardless of genetic testing results. Plan to cancel genetic counseling for now, therefore, and will schedule surgery pending plastic surgery consult. Plan ALND at time of surgery. Stable for LEFT MRM and right prophylactic mastectomy. Will excise skin overlying tumor at time of surgery. documented in this encounter Procedure Notes * Mali Crowley MD - 04/30/2017 11:10 AM EDT IR PROCEDURE NOTE Procedure: Right breast drain via existing tract. Indication for Procedure: Per Wendy Vicente APRN Yannick Sandoval is a 51 y.o. female with breast CA to the left. Pt underwent bilateral breast reconstruction after mastectomy with SALVADOR flaps (04/26/17); complicated by intraoperative demise followed by Tissue Principal Statistical Programmer placement. ??Patient has a RIGHT breast insitu with large volume output. The drain has become partially dislodged. Procedure events and findings: After obtaining informed consent, patient was positioned supine on procedure table and sterile prep and drape performed. Maximum sterile barrier technique was used throughout. Fluoroscopy showed only a few cm of catheter still in patient. Contrast injection via the existing drainage catheter showed no drain lumen in patient. Drain removed. An angled catheter and guide wire were placed and directed under fluoroscopy through the drain tract. Contrast injection showed a space circumferentially around the tissue factory helper. A 10Fr catheter was placed over the guide wire with the pigtail formed at 6 o'clock vs the breast implant with the idea that 6 o'clock would be dependent when Ms. Martinezosh upright. Access site dressed. Medications: Fentanyl 100 mcg IV, Versed 2mg IV, 1% Lidocaine <10ccs subcutaneous. Est Blood Loss: <5cc. Complications: No immediate. Impression: 1. Existing right breast drain was retracted, only a few cm still in pt. 2. 10Fr locking loop drain placed via the existing drain tract, pigtail at 6 o'clock vs the breast implant. 3. Drain to bulb suction. Will plan for f/u in ~2 weeks assuming output declines. Resident/Fellow: None. Attending: Demetrio, Dr. Crowley performed this procedure. I was present during the intraservice time as documented by the IR Nurse. documented in this encounter Miscellaneous Notes * Plan of Care - Karley Easton RN - 05/01/2017 1:17 AM EDT Problem: Patient Care Overview Goal: Plan of Care Review Outcome: Ongoing (Interventions Implemented as Appropriate) 04/30/17 1428 04/30/172003 Coping/Psychosocial Plan Of Care Reviewed With -- patient Plan of Care Review Progress progress toward functional goals as expected -- OUTCOME EVALUATION NOTE: ? OUTCOME SUMMARY: ? Pt slept between care overnight. Pain controlled with scheduled tylenol and PRN oxycodone. ??Voiding adequately. Pt has not had a BM since 04/25, is passing gas and +BS. PRN suppository given with no results yet.??Surgical bra on and abdominal binder on when OOB. YG drains putting out moderate amounts of serosanguinous drainage. ??Drain to R breast replaced today and holding suction. Will continue to monitor. ? PLAN MOVING FORWARD: ? Pain control, YG drains, mobility, Pt/ot, d/c planning ? INDIVIDUALIZED FALL PREVENTION INTERVENTIONS: ? Patient-specific fall risk factors per assessment: [current deficits]:?Recent surgery, pain, narcotics, generalized weakness, hospital environment ? Assistance [level of assistance required for transfers and ambulation]:?1 assist w/ FWW ? Supervision [direct monitoring required during toileting and ADLs]:?Hands on ? Surveillance [continuous indirect monitoring]:?Masimo, purposeful rounding ? Patient-specific fall prevention interventions for sensory deficits provided, if applicable:?[X]N/A ? CPG GOAL OUTCOME EVALUATION:? * Op Note - Mali Lakhani MD - 04/30/2017 5:18 PM EDT [facility] Operative Note Patient Name: Wendy Sandoval : [id number] MR#: [id number] Case Date: 04/26/2017 - 04/27/2017 Surgeon: Surgeon(s) and Role: Panel 1: * Mali Lakhani MD - Primary * Kaveh Whiteside MD - Resident-Surgeon Hubert * Alyx Estrella MD - *ASSISTING SURGEON Panel 2: * Ria Menendez MD - Primary Preoperative diagnosis: Left breast cancer Postoperative diagnosis: Left breast cancer Procedure(s) (LRB): @BREAST RECONSTRUCTION W/ FREE FLAP, SUSAN (WRVU 42.58) (Bilateral) EXCISION OF RIB, PARTIAL (WRVU 7.26) (Bilateral) MASTECTOMY, SIMPLE, COMPLETE-SUSAN (WRVU 15.85) (Bilateral) MODIFIER , NIPPLE SPARING (Bilateral) LYMPHADENECTOMY, AXILLARY, COMPLETE (WRVU 13.87) (Left) BREAST RECONSTRUCTION, IMMEDIATE OR DELAYED, W/ TISSUE COLLEGE OR UNIVERSITY REGISTRAR, INCLUDING SUBSEQUENT EXPANSION (WRVU 18.5) (Bilateral) FTSG, FREE, DIR CLOSE DONOR SITE, TRUNK, 20 SQ CM OR LESS (WRVU 9.15) (Bilateral) Anesthesia: General Estimated Blood Loss: 80 mL Implant Name Type Inv. Item Serial No. Direct Care Provider Lot No. LRB No. Used Action BLOWER INSTALLER,GOLD,3.0MM ([id number]) - [id number] IMPLANTS BLOWER INSTALLER,GOLD,3.0MM ([id number]) Lang Ma - - [id number] Left 1 Implanted and Explanted BLOWER INSTALLER,GOLD,3.0MM ([id number]) - [id number] IMPLANTS BLOWER INSTALLER,GOLD,3.0MM ([id number]) Lang Ma - - [id number] Left 1 Implanted and Explanted BLOWER INSTALLER,GOLD,3.0MM ([id number]) - [id number] IMPLANTS BLOWER INSTALLER,GOLD,3.0MM ([id number]) Lang Ma - - [id number] Right 1 Implanted and Explanted EXPAND,TISS,ARTOURA,600CC ([id number]) (AUTOREQ) - [id number] IMPLANTS EXPAND,TISS,ARTOURA,600CC ([id number]) (AUTOREQ) [id number] [employer] - [id number] Right 1 Implanted EXPAND,TISS,ARTOURA,600CC ([id number]) (AUTOREQ) - [id number] IMPLANTS EXPAND,TISS,ARTOURA,600CC ([id number]) (AUTOREQ) [id number] [employer] - [id number] Left 1 Implanted Specimens removed during surgery: Order Name Source Comment Collection Info Order Time SPECIMEN TO PATHOLOGY Short Stitch=Superior, Long Stitch=Lateral, Single Stitch=Base of Nipple. 26587 Left Breast Cancer Left Breast Yes Excision 04/26/2017 10:52 AM Time removed from patient: 10:50 AM SPECIMEN TO PATHOLOGY 50660 Left Breast Cancer Left Axillary Dissection Yes Excision 04/26/2017 10:52 AM Time removed from patient: 10:52 AM SPECIMEN TO PATHOLOGY Left breast cancer right breast. short suture superior. long suture lateral. single suture base of nipple Excision 04/26/2017 11:56 AM Time removed from patient: 11:56 AM Drains: # 19 Juliano x 2, # 15 Juliano x 2 Drain/Device Site 04/26/17 193 Left abdomen collapsible closed device (Active) Insertion Site clean and dry;dressing intact 04/30/2017 8:06 AM Drain Device Number 3 04/30/2017 8:06 AM Drainage Characteristics/Odor yellow 04/30/2017 11:00 AM Drainage Amount moderate 04/30/2017 8:06 AM General Output (mL) 65 04/30/2017 3:34 PM Drain/Device Site 04/26/17 1930 Right abdomen collapsible closed device (Active) Insertion Site drainage 04/30/2017 8:06 AM Drain Device Number 1 04/30/2017 8:06 AM Drainage Characteristics/Odor serosanguineous 04/30/2017 8:06 AM Drainage Amount scant 04/30/2017 8:06 AM General Output (mL) 40 04/30/2017 3:34 PM Drain/Device Site 04/26/17 1930 Left breast collapsible closed device (Active) Insertion Site clean and dry;dressing intact 04/30/2017 8:06 AM Drain Device Number 4 04/30/2017 8:06 AM Drainage Characteristics/Odor serosanguineous 04/30/2017 11:00 AM Drainage Amount moderate 04/30/2017 8:06 AM General Output (mL) 90 04/30/2017 3:34 PM Drain/Device Site 04/30/17 1100 Right breast collapsible closed device (Active) Insertion Site drainage 04/30/2017 8:06 AM Drain Device Number 2 04/30/2017 8:06 AM Drainage Characteristics/Odor serosanguineous 04/30/2017 11:00 AM Drainage Amount moderate 04/30/2017 8:06 AM Intake (mL) 35 04/27/2017 12:50 AM General Output (mL) 55 04/30/2017 3:34 PM Surgical Closure: Primary Closure - closure of [...] HPI/Surgical Indications: 51 year old female with left breast cancer for planned bilateral mastectomy and immediate reconstruction with abdominally based autologous tissue. The patient understood thepotential risks and complications and elected to proceed. Procedure Description: Flap: Other: SIEA flaps Gram Mastectomy Reduction: Right 600 grams, Left 560 grams Drains: Yes Size: # 15 and # 19 Blakes Donor Site Repair: Direct Closure Anastomosis: Arterial hand sewn end to end SIEA to MEKA Ischemia Time: Right 60 minutes and 20 minutes, Left 45 minutes, 27 minutes, 29 minutes The patient was identified and marked in the upright position in the preoperative holding area. Surgical plan was reviewed, she understood the potential risks and complications of surgery and electedto proceed. The patient was brought to the operating room placed on the operating room table in the supine position. Anesthetic monitors and SCDs were applied. After induction of general anesthesia the patient was intubated orally and maintained on general anesthesia throughout the remainder of the case. The chest, breasts, and abdomen were prepped and draped in the standard sterile fashion. We began our procedure in the abdomen making a low Pfannenstiel incision from iliac crest to iliac crest across the midline, splitting the the flaps in the vertical midline below the umbilicus, and making our upper incision as well. Dissection ensued from superficial to deep with electrocautery. We isolated perforators off the anterior rectus sheath on each side and also isolated the superficial inferior epigastric artery and veins on each side. The veins appeared robust and large. The artery was bounding and measured approximately 1.5 mm at the takeoff from the external iliac vessels. We placed Acland clampson the perforators off the anterior rectus sheath bilaterally and observed full perfusion of the flaps off the superficial system on each side. We therefore opted to perform SIEA flaps and not violate the abdominal fascia at all. The perforators off the anterior rectus sheath were hemoclipped and divided and the flaps were allowed to perfuse in situ for over an hour each with persistent strong doppler tones. Dr. Menendez completed her portion of the procedure which were the bilateral mastectomies and lymph node dissection on the left. Upon her completion of the procedure we went to the chest and elevated the pectoralis major muscle off of the sternal attachments over the third through fourth ribs on each side. The patient had tight interspaces and the third rib costal cartilage was excised on each side for a total of approximately 3 cm to gain access to the internal mammary vessels. On the right side, the fascia deep to the costal segment was tightly adherent and a small rent was created in the parietal pleura removing the cartilaginous segment of rib. Upon attempting to close thesmall rent which was roughly 1 x 1 cm a small needle prick to the visceral parietal pleura occurredand created an air leak. This pinhole air leak was quite small but persistent. We attempted to close the leak with Tisseal fibrin gluel twice unsuccessfully. At this point I consulted Dr. Frankie Estrella of Thoracic surgery to see if there was a minimally invasive way of closing a pinhole leak in the visceral pleura. He presented to the operating room and scrubbed into the procedure opting to perform 2 sutures to imbricate the area over the leak which he did with 4-0 PDS. We then applied a smalldrop of Dermabond to the repair and the air leak completely ceased. Dr. Estrella placed a #15 Juliano drain in the chest to act as a chest tube to either be removed at the end of the procedure or thefollowing day. We utilized a small piece of pectoralis muscle on the right side and parachuted thisdown over the parietal pleural defect with 2-0 vicryl to obtain complete closure of the wound. We then proceeded with the remainder of the case preparing the internal mammary vessels on each side under microscopic assistance. We then sequentially disconnected the SIEA flaps from each side of the abdomen and brought them to the chest. We began in the left chest with the right abdominal flap. We performed a coupled anastomoses with 3 mm escort patients between the superficial inferior epigastric vein andthe internal mammary vein and performed a second coupled anastomosis between a cephalic vein branchand a second superficial inferior epigastric vein. We performed a handsewn end-to-end anastomosis between the superficial inferior epigastric artery and the internal mammary artery with 8-0 microsuture. When Acland clamps were released the flap regained brisk inflow and outflow, there were Doppler tones in the skin paddle of the flap. After approximately 20-30 minutes we noticed spasm in the SIEA vessel in the flap, this was treated with topical verapamil and adventitial stripping. This helped for a short amount of time, approximately 10 minutes, however, the superficial inferior epigastric artery re-spasmed. We took down the arterial anastomosis to check for problems, there was no evidenceof clot or anastomotic complication. We redid the handsewn end-to-end anastomosis again and ultimately obtained the same results which was spasm after approximately 20-30 minutes. We again attempted to treat this with topical verapamil, flap warming with warm saline irrigation and time. This was again unsuccessful and spasm persisted such that we are unable to achieve Doppler signals in the skin paddle of the flap. We again took down the arterial anastomosis and revised that again, there was noevidence of clot or anastomotic complication again. We reperformed a handsewn end-to-end anastomosis with 8-0 microsuture as previously and allowed the flap to perfuse in situ. There appeared to be continued flow through the arterial limb at this point. We therefore proceeded and disconnected the left abdominal flap and brought it to the right chest performing a coupled anastomosis with a 3 mm synovis micro escort patients between the superficial inferior epigastric vein and the internal mammary vein. We performed a handsewn end-to-end anastomosis between the superficial inferior epigastric artery and the internal mammary artery. When Acland clamps were released the flap regained good inflow and outflow and spasm again occurred in approximately 20 minutes. We treated the right side as well with topical verapamil, adventitial stripping, and flap warming. We redid the anastomosis after no resolution of the spasm, it was without clot or anastomotic complication. At this point we noticed that the left breast flap had re-spasmed and we have again lost flow in the artery. We warmed the flaps and asked our anesthesia team to raise the blood pressure, to no effect on the flap arteries. I then went out of the operating room to discuss the situation with the family. I discussed the spasm issues with the artery and that I did not feel that we would be able to overcome these as we had already done 5 arterial anastomoses combined for both sides without ability to achieve persistent inflow into the flaps. I discussed options which would include another revision of the anastomoses which I did not feel would be helpful, versus leaving the operating room with flaps that may or may not achieve via bility, or disconnecting the flaps removing them and placing tissue expanders. Based on our conversations the patient's and son believed the patient would be most interested in placement of the tissue expanders. I returned to the operating room and there was still no arterial inflow to the flaps, the venous anastomoses appeared patent. We hemoclipped the internal mammary artery and vein on each side and divided the flaps, removing them. I explored the arterial anastomoses on each side they were without anastomotic complication or clot. Next, we performed a Valsalva maneuver under copious saline irrigation on the right side and there was no evidence of an air leak. I removed the #15 Juliano chest tube drain and closed the remainder of the pectoralis muscle back to its sternal attachments on both sides. We then inserted mentor Artura 600 cc tissue expanders on each side and and filled them with 450 cc of methylene blue impregnated saline. The factory helper tabs were sewn to the pectoralis muscle and we closed the mastectomy flaps with 2-0 vicryl and 4-0 prolene. #15 Juliano style drains were inserted on each side and brought out through anterior axillary line skin secured with 3-0 Prolene sutures. The nipple areolar complexes had been excised and removed as free grafts earlier in the procedure, these were replaced centered over the tissue expanders on each side 11 cm off the midline and 15 cm from the sternal notch. A 42 mm area of depithelialization was performed on each side and the free nipple grafts were inset utilizing 4-0 chromic gut suture. The nipple areolar grafts were bolstered with Xeroform bacitracin and cotton utilizing 3-0 silk pop-off sutures. In the abdomen we elevated the vertical supraumbilical midline abdominal soft tissue and closed our donor defect inthe abdomen over #19 Portuguese Juliano drains. Closure was performed in multiple layers with 0 Vicryl for Delvis's level repair, 2-0 Vicryl for deep dermis, and 3-0 Monocryl as a running subcuticular closure of the skin. The umbilical remnant was brought out in the vertical midline at the level of the po sterior iliac crest and inset with 2-0 Vicryl and 4-0 chromic gut suture. Operative sites were cleansed and dried Xeroform and bacitracin was applied across the wound margins. The drapes were taken down the patient was weaned from anesthesia and extubated in the operating room. She was transitionedto her hospital bed in the semi-mosqueda's position and transported to the postanesthesia care unit where she was reported to be stable and breathing spontaneously. Complications included a right parietal and visceral pleural tear, and arterial flap failure bilaterally. All sponge and needle counts were correct at the end of the case. Infection Bundle used? No Attestation: Case Date: 04/26/2017 - 04/27/2017 I was present and I participated during the entire procedure (does not need to include opening and closing). MALI LAKHANI MD 04/30/2017 * Plan of Care - Christy Tang RN - 04/30/2017 2:36 PM EDT Problem: Patient Care Overview Goal: Plan of Care Review Outcome: Ongoing (Interventions Implemented as Appropriate) 04/30/17 1428 Coping/Psychosocial Plan Of Care Reviewed With patient Plan of Care Review Progress progress toward functional goals as expected OUTCOME EVALUATION NOTE: OUTCOME SUMMARY: Pt A&Ox4 throughout shift. PRN and scheduled medications managing pain. Pt went down to IR today for new drain placement to the R breast. Surgical bra on and abdominal binder on when OOB. Pt voiding adequate amounts. Pt still has not had a BM yet. Will continue to monitor. PLAN MOVING FORWARD: Pain control Mobilize Ongoing D/C planning INDIVIDUALIZED FALL PREVENTION INTERVENTIONS: Patient-specific fall risk factors per assessment: [current deficits]: Pain, generalized weakness Assistance [level of assistance required for transfers and ambulation]: Standby assist with FWW Supervision [direct monitoring required during toileting and ADLs]: Arms reach Surveillance [continuous indirect monitoring]: john Lr NKE CPG GOAL OUTCOME EVALUATION: * Plan of Care - Karley Easton RN - 04/30/2017 2:20 AM EDT Problem: Patient Care Overview Goal: Plan of Care Review Outcome: Ongoing (Interventions Implemented as Appropriate) 04/29/17 1242 04/29/17 195 Coping/Psychosocial Plan Of Care Reviewed With -- patient Plan of Care Review Progress progress toward functional goals as expected -- OUTCOME EVALUATION NOTE: ?? OUTCOME SUMMARY: ?? Pt slept between care overnight. Pain controlled with scheduled tylenol and PRN oxycodone. Surgicalbra on and abdominal binder on when OOB. YG drains putting out moderate amounts of serosanguinous drainage. YG drain to R breast leaking and not holding suction, IR tomorrow for drain replacement. Will continue to monitor. ?? PLAN MOVING FORWARD: ?? Pain control, YG drains, mobility, Pt/ot, d/c planning ?? INDIVIDUALIZED FALL PREVENTION INTERVENTIONS: ?? Patient-specific fall risk factors per assessment: [current deficits]: Recent surgery, pain, narcotics, generalized weakness, hospital environment ?? Assistance [level of assistance required for transfers and ambulation]: 1 assist w/ FWW ?? Supervision [direct monitoring required during toileting and ADLs]: Hands on ?? Surveillance [continuous indirect monitoring]: Masimo, purposeful rounding ?? Patient-specific fall prevention interventions for sensory deficits provided, if applicable: [X] N/A ? CPG GOAL OUTCOME EVALUATION: * Plan of Care - Cosme Coleman, PT - 04/29/2017 1:10 PM EDT Physical Therapy Treatment Treatment Number PT: (P) 3 Pertinent History of Current Problem: (P) 51 y.o. female with PMH including JACQUELYN on CPAP, HTN, hyperlipidemia, and breast CA (L) - newly diagnosed admitted on 04/26/2017 by Mali Hobson MD for bilateral breast reconstruction after mastectomy with SALVADOR flaps that failed intraoperatively and then Tissue Principal Statistical Programmer placement with FNG. Pt reported that her bra felt looser today but on inspectionwas appropriately positioned. RN had smaller one and pt reported that she would switch to smaller one later. Precautions/Restrictions: (P) fall, other (see comments) Precautions Comments: (P) Abdominal binder when out of bed. YG drains x4 (2L, 2R); Maintain trunk flexion greater than 30 degrees; NO ICE to surgical sites. Up with assistance Assessment: Pt seen for PT following B breast reconstruction. Pt demonstrated improved ability to do step today with Mod assist with hand hold assist. Pt continues to have mobility limitations due topain. Pt steady with toilet transfer and gait. Please see the flow sheet below for patient details and mobility. Pt demonstrated improved mobility today. Pt would benefit from ongoing physical therapy interventions to work on functional mobility. Pt will likely d/c home with assist. Staff Mobility Recommendations 1 person assist for gait. Cosme Coleman, PT Pager: [phone] Inpatient Physical Therapy 04/29/17 1155 Rehab Evaluation Document Type therapy note (daily note) Total Evaluation Minutes, Physical Therapy 15 (gaitx1) Patient Effort good Symptoms Noted During/After Treatment increased pain General Information Patient Profile Review yes Onset of Illness/Injury or Date of Surgery 04/26/17 Patient/Family/Caregiver Comments/Observations Pt reports she is feeling better today with less pain. Pt reports that the plan is to return to OR for drain placement and possible d/c on Sunday. General Observations of Patient Pt supine in bed with head raised. Pertinent History of Current Problem 51 y.o. female with PMH including JACQUELYN on CPAP, HTN, hyperlipidemia, and breast CA (L) - newly diagnosed admitted on 04/26/[address] Lakhani, Mali Pinto MD for bilateral breast reconstruction after mastectomy with SALVADOR flaps that failed intraoperatively and then Tissue Principal Statistical Programmer placement with FNG. Precautions/Restrictions fall;other (see comments) Precautions Comments Abdominal binder when out of bed. YG drains x4 (2L, 2R); Maintain trunk flexion greater than 30 degrees; NO ICE to surgical sites. Up with assistance Treatment Number PT 3 Living Environment Patient population Adult Living Environment Lives With spouse Living Arrangements house Living Environment Comment Pt lives in house with . Pt had 2 steps to enter house without railing. Functional Level Prior Prior Functional Level Comment Pt ind with ADLs/IADLs. No AD Pain Scale/Rating Pain Assessment Scale Numbers (Numeric Rating Pain Scale) Pain Level 4 Pain Assessment Numbers/Faces/Word Pain Body Location - Side Bilateral Pain Body Location breast ROM (Range of Motion) Additional Documentation General Assessment (Group) General Range of Motion Detail B LE WFL during observed motions. MMT (Manual Muscle Testing) Additional Documentation General Assessment (Group) General Manual Muscle Testing Assessment Detail LE strength sufficient for sit to stand transfer and gait in room. Pt able to do step up with assist today. Mobility Assessment/Training Additional Documentation Bed Mobility Assessment/Treatment (Group);Gait Assessment/Treatment (Group);Stairs Assessment/Treatment (Group);Transfer Assessment/Treatment (Group) Bed Mobility Assessment/Treatment Dzbwqh-br-Kst Winkler (Bed Mobility) minimum assist (75% patient effort) Jay-yq-Vwwczh Winkler (Bed Mobility) minimum assist (75% patient effort) Impairments (Bed Mobility) pain Comment (Bed Mobility) Slow transition Transfer Assessment/Treatment Winkler (Sit-Stand Transfers) contact guard assist Winkler (Stand-Sit Transfers) contact guard assist Xzz-Vldke-Prt Assistive Device (Transfers) rolling walker Winkler (Toilet Transfers) (SBA) Assistive Device (Toilet Transfers) grab bar;rolling walker Impairments (Transfers) pain;strength decreased Comment (Transfers) Pt had difficulty with transition secondary to pain. Gait Assessment/Treatment Winkler (Gait) (SBA) Assistive Device (Gait) rolling walker Distance in Feet (Gait) 10ft x 2 Gait Pattern Analysis swing-through gait Deviations (Gait) radha decreased;step length decreased Impairments (Gait) pain Comment (Gait) Pt limited by pain but steady with walking Stairs Assessment/Treatment Number of Stairs (Stairs) 1 Handrail Location (Stairs) none Winkler (Stairs) moderate assist (50% patient effort) Impairments (Stairs) pain;strength decreased Comment (Stairs) Hand hold assist. Pt reports it felt like her back was going to give out but that her pain was tolerable. Motor Skills/Interventions Additional Documentation Balance Skills Training (Group) Balance Skills Training Sitting Balance: Static good balance Sitting Balance: Dynamic good balance Lff-lv-Takuz Balance fair balance Standing Balance: Static fair balance Standing Balance: Dynamic fair balance Plan of Care Review Plan Of Care Reviewed With patient Progress progress toward functional goals as expected Physical Therapy Goal Types Physical Therapy Goal Types Bed Mobility Goal (Group);Gait Training Goal (Group);Transfer Training Goal (Group) Bed Mobility Goal Bed Mobility Goal, Date Established 04/28/17 Bed Mobility Goal, Time to Achieve by discharge Bed Mobility Goal, Activity Type roll left/roll right;supine to sit/sit to supine Bed Mobility Goal, Winkler Level independent Bed Mobility Goal, Date Goal Reviewed 04/29/17 Bed Mobility Goal, Outcome Achieved goal ongoing Gait Training Goal Gait Training Goal, Date Established 04/28/17 Gait Training Goal, Time to Achieve by discharge Gait Training Goal, Winkler Level independent Gait Training Goal, Assist Device walker, rolling Gait Training Goal, Distance to Achieve 100ft Gait Training Goal, Additional Goal Ascend/descent 2 steps Gait Training Goal, Date Goal Reviewed 04/29/17 Gait Training Goal, Outcome goal ongoing Transfer Training Goal Transfer Training Goal, Date Established 04/28/17 Transfer Training Goal, Time to Achieve by discharge Transfer Training Goal, Activity Type bif-ts-iwmwi/otmaq-yj-vmi;eng-ca-lmahp/ctjry-ws-pfn Transfer Train Goal, Winkler Level independent Transfer Training Goal, Assist Device walker, rolling Transfer Train Goal, Date Goal Reviewed 04/29/17 Transfer Training Goal, Outcome goal ongoing Clinical Impression Therapy Frequency 3-5 times/wk Predicted Duration of Therapy Intervention (days/wks) 2 weeks Anticipated Equipment Needs at Discharge (TBD) Anticipated Discharge Disposition home with assist;home with home health General Interventions Additional Documentation Planned Therapy Interventions (Group) Planned Therapy Interventions balance training;bed mobility training;gait training;transfer training;stair training * Plan of Care - Carrie Mann RN - 04/29/2017 12:46 PM EDT Problem: Patient Care Overview Goal: Plan of Care Review Outcome: Ongoing (Interventions Implemented as Appropriate) 04/29/17 1242 Coping/Psychosocial Plan Of Care Reviewed With patient Plan of Care Review Progress progress toward functional goals as expected OUTCOME EVALUATION NOTE: OUTCOME SUMMARY: Alert and oriented. Pt rating pain about 4/10. Pain located generalized breasts and abdomen. Pt states, the dilaudid keeps me awake at night; can we switch back to the oxycodone? Order changed by MD. Will continue to monitor. Pt tolerating a regular diet. Pt had some nausea this morning; relievedby zofran. Voiding without difficulty. 1 assist with walker. Abdominal binder in place when OOB. 4 YG drains present. Right breast drain is not working. MD aware. Pt will be NPO at midnight for IR tomorrow to fix the drain. Pt is leaking moderate amount of serosanguinous fluid from the right breastsite. ABD pads changed 4 times to the right breast area today. 0900 - pt somewhat nauseous. zofran given with relief PLAN MOVING FORWARD: Pain control; mobilize INDIVIDUALIZED FALL PREVENTION INTERVENTIONS: Patient-specific fall risk factors per assessment: [current deficits]: Multiple drains present Assistance [level of assistance required for transfers and ambulation]: Stand by assist Supervision [direct monitoring required during toileting and ADLs]: Minimal assistance with ADLs Surveillance [continuous indirect monitoring]: Masimo; hourly rounding Patient-specific fall prevention interventions for sensory deficits provided, if applicable: [X] Yes CPG GOAL OUTCOME EVALUATION: * Plan of Care - Karley Easton RN - 04/29/2017 12:46 AM EST Problem: Patient Care Overview Goal: Plan of Care Review Outcome: Ongoing (Interventions Implemented as Appropriate) 04/28/17 1105 04/28/172013 Plan of Care Review Progress progress toward functional goals as expected -- Coping/Psychosocial Plan Of Care Reviewed With -- patient OUTCOME EVALUATION NOTE: OUTCOME SUMMARY: Pt slept between care overnight. Pain controlled with scheduled tylenol and PRN dilaudid. Surgical bra on and abdominal binder on when OOB. YG drains putting out moderate amounts of serosanguinous drainage. YG drain to R breast leaking and not holding suction, MD aware, gauze applied as needed. Will continue to monitor. PLAN MOVING FORWARD: Pain control, YG drains, mobility, Pt/ot, d/c planning INDIVIDUALIZED FALL PREVENTION INTERVENTIONS: Patient-specific fall risk factors per assessment: [current deficits]: Recent surgery, pain, narcotics, generalized weakness, hospital environment Assistance [level of assistance required for transfers and ambulation]: 1 assist w/ FWW Supervision [direct monitoring required during toileting and ADLs]: Hands on Surveillance [continuous indirect monitoring]: Masimo, purposeful rounding Patient-specific fall prevention interventions for sensory deficits provided, if applicable: [X] N/A CPG GOAL OUTCOME EVALUATION: * Plan of Care - Salina Jackson RN - 04/28/2017 3:30 PM EST Problem: Pain, Acute (Adult) Goal: Identify Related Risk Factors and Signs and Symptoms Related risk factors and signs and symptoms are identified upon initiation of Human Response Clinical Practice Guideline (CPG) Outcome: Ongoing (Interventions Implemented as Appropriate) 04/27/17 1823 Pain, Acute Related Risk Factors (Acute Pain) surgery Signs and Symptoms (Acute Pain) fatigue/weakness;verbalization of pain descriptors Goal: Acceptable Pain Control/Comfort Level Patient will demonstrate the desired outcomes by discharge/transition of care. Outcome: Ongoing (Interventions Implemented as Appropriate) 04/28/17 1523 Pain, Acute (Adult) Acceptable Pain Control/Comfort Level making progress toward outcome Problem: Skin Integrity Impairment, Risk/Actual () Goal: Identify Related Risk Factors and Signs and Symptoms Related risk factors and signs and symptoms are identified upon initiation of Human Response Clinical Practice Guideline (CPG) 04/27/17 1823 Skin Integrity Impairment, Risk/Actual (Infant) Related Risk Factors (Skin Integrity Impairment) positioning Goal: Skin Integrity Patient will demonstrate the desired outcomes by discharge/transition of care. Outcome: Ongoing (Interventions Implemented as Appropriate) 04/28/17 1523 Skin Integrity Impairment, Risk/Actual () Skin Integrity making progress toward outcome Goal: Wound Healing Patient will demonstrate the desired outcomes by discharge/transition of care. Outcome: Ongoing (Interventions Implemented as Appropriate) 04/27/17 1823 Skin Integrity Impairment, Risk/Actual (Infant) Wound Healing making progress toward outcome Problem: Patient Care Overview Goal: Plan of Care Review Outcome: Ongoing (Interventions Implemented as Appropriate) 04/28/17 1105 Plan of Care Review Progress progress toward functional goals as expected Coping/Psychosocial Plan Of Care Reviewed With patient;spouse OUTCOME EVALUATION NOTE: OUTCOME SUMMARY: Pain adequately controlled with tylenol and prn dilaudid po (see MAR for details). YG drains putting out moderate amounts of serosanguineous drainage (see doc flowsheets). R breast YG began leaking at site and not holding suction late morning, MDs made aware, no further action at this time. Pt ambulating in room with FWW, c/o increased pain with ambulation. PLAN MOVING FORWARD: Continue to monitor YG output, continue to encourage mobility and pulm toilet, and continue medicating for pain per orders, notify MD of any changes. INDIVIDUALIZED FALL PREVENTION INTERVENTIONS: Patient-specific fall risk factors per assessment: [current deficits]: Recent surgery, generalized weakness, narcotics, drain tubing Assistance [level of assistance required for transfers and ambulation]: 1 assist, FWW Supervision [direct monitoring required during toileting and ADLs]: Stand by Surveillance [continuous indirect monitoring]: Masimo, hourly rounding Patient-specific fall prevention interventions for sensory deficits provided, if applicable: CPG GOAL OUTCOME EVALUATION: Goal: Fall Prevention-Safe Patient Handling Outcome: Ongoing (Interventions Implemented as Appropriate) 04/28/1792104/28/17 1500 [place] Fall Risk History of Falling 0 -- Secondary Diagnosis 15 -- Ambulatory Aids 15 -- Intravenous Therapy/Heparin/Saline Lock 20 -- Gait/Transferring 10 -- Mental Status 0 -- Score 60 -- OTHER [place] Fall Risk High -- Restraint Interventions Safety Promotion/Fall Prevention -- muscle strengthening facilitated;fall prevention program maintained;nonskid shoes/slippers when out of bed;safety round/check completed Positioning Body Position -- supine, head elevated Activity Activity Type -- activity adjusted per tolerance Activity Assistance Provided -- assistance, 1 person Assistive Device Utilized -- front-wheel walker Goal: Infection Control Outcome: Ongoing (Interventions Implemented as Appropriate) 04/28/1792104/28/17 1500 Safety Interventions Isolation Precautions -- standard precautions maintained Infection Prevention -- rest/sleep promoted;single patient room provided Coping Strategies Supportive Measures active listening utilized -- * Plan of Care - Cosme Coleman, PT - 04/28/2017 1:36 PM EST Physical Therapy Treatment Treatment Number PT: 2 Pertinent History of Current Problem: From prior note 51 y.o. female with PMH including JACQUELYN on CPAP, HTN, hyperlipidemia, and breast CA (L) - newly diagnosed admitted on 04/26/[address] Lakhani, [place] Pinto MD for bilateral breast reconstruction after mastectomy with SALVADOR flaps that failed intraoperatively and then Tissue Principal Statistical Programmer placement with FNG. Precautions/Restrictions: fall, other (see comments) Precautions Comments: YG drainsx4, Trunk flexion more than 30 degrees, up with assist. No ice to surgical site. Abdominal binder when out of bed. Assessment: Pt seen for PT following B breast reconstruction after mastectomy. Pt demonstrated improved gait today with increased distance. Pt continues to be limited by pain. Pt unable to do step. Please see the flow sheet below for patient details and mobility. Pt would benefit from ongoing physical therapy interventions while in hospital. Will continue to work on step training as pt must do steps to enter house. Staff Mobility Recommendations 1 person assist with gait Cosme Coleman, PT Pager: [phone] Inpatient Physical Therapy 04/28/17 1105 Rehab Evaluation Document Type therapy note (daily note) Total Evaluation Minutes, Physical Therapy 20 (gaitx1, ther.act.x1) Patient Effort good Symptoms Noted During/After Treatment increased pain General Information Patient Profile Review yes Onset of Illness/Injury or Date of Surgery 04/26/17 Patient/Family/Caregiver Comments/Observations pt reports she needs to use bathroom. General Observations of Patient Pt supine in bed with head raised. Pertinent History of Current Problem From prior note 51 y.o. female with PMH including JACQUELYN on CPAP, HTN, hyperlipidemia, and breast CA (L) - newly diagnosed admitted on 04/26/2017 by Susana Hobson MD for bilateral breast reconstruction after mastectomy with SALVADOR flaps that failed intraoperatively and then Tissue Principal Statistical Programmer placement with FNG. Precautions/Restrictions fall;other (see comments) Precautions Comments YG drainsx4, Trunk flexion more than 30 degrees, up with assist. No ice to surgical site. Abdominal binder when out of bed. Treatment Number PT 2 Living Environment Patient population Adult Living Environment Lives With spouse Living Arrangements house Living Environment Comment From leana Pt lives with her supportive and teenage son in a multi story home with a few ALONZO from garage, no rail. Her daughter is away at college but will be home to assist PRN over her school break next week. She is typically independent, remains active. Functional Level Prior Prior Functional Level Comment Pt ind with ADLs/IADLs. No AD Pain Scale/Rating Pain Assessment Scale Numbers (Numeric Rating Pain Scale) Pain Level 4 Pain Assessment Numbers/Faces/Word Pain Body Location - Side Bilateral Pain Body Location breast ROM (Range of Motion) Additional Documentation General Assessment (Group) General Range of Motion Detail B LE WFL during observed functional movements. MMT (Manual Muscle Testing) Additional Documentation General Assessment (Group) General Manual Muscle Testing Assessment Detail LE strength sufficient for sit to stand transfer and gait in room. Pt unable to do steps secondary weakness in B LE. Mobility Assessment/Training Additional Documentation Bed Mobility Assessment/Treatment (Group);Gait Assessment/Treatment (Group);Stairs Assessment/Treatment (Group);Transfer Assessment/Treatment (Group) Bed Mobility Assessment/Treatment Wfnzrk-xq-Izx Winkler (Bed Mobility) minimum assist (75% patient effort) Ago-yt-Nldyqx Winkler (Bed Mobility) minimum assist (75% patient effort) Impairments (Bed Mobility) pain;strength decreased Comment (Bed Mobility) Slow transitions Transfer Assessment/Treatment Winkler (Sit-Stand Transfers) contact guard assist Winkler (Stand-Sit Transfers) contact guard assist Yxq-Pgxca-Jda Assistive Device (Transfers) rolling walker Winkler (Toilet Transfers) (SBA) Assistive Device (Toilet Transfers) grab bar;rolling walker Impairments (Transfers) pain;strength decreased Comment (Transfers) Pt limited by pain. Gait Assessment/Treatment Winkler (Gait) (SBA) Assistive Device (Gait) rolling walker Distance in Feet (Gait) 10ftx4, 10ft x 2 Gait Pattern Analysis swing-through gait Deviations (Gait) radha decreased;step length decreased Impairments (Gait) pain Comment (Gait) Steady with FWW however limited by pain. Stairs Assessment/Treatment Impairments (Stairs) pain Comment (Stairs) Attempted step up but pt unable to lift leg onto step. Motor Skills/Interventions Additional Documentation Balance Skills Training (Group) Balance Skills Training Sitting Balance: Static good balance Sitting Balance: Dynamic good balance Emi-ck-Wmtvt Balance fair balance Standing Balance: Static fair balance Standing Balance: Dynamic fair balance Plan of Care Review Plan Of Care Reviewed With patient;spouse Progress progress toward functional goals as expected Physical Therapy Goal Types Physical Therapy Goal Types Bed Mobility Goal (Group);Gait Training Goal (Group);Transfer Training Goal (Group) Bed Mobility Goal Bed Mobility Goal, Date Established 04/28/17 Bed Mobility Goal, Time to Achieve by discharge Bed Mobility Goal, Activity Type roll left/roll right;supine to sit/sit to supine Bed Mobility Goal, Winkler Level independent Gait Training Goal Gait Training Goal, Date Established 04/28/17 Gait Training Goal, Time to Achieve by discharge Gait Training Goal, Winkler Level independent Gait Training Goal, Assist Device walker, rolling Gait Training Goal, Distance to Achieve 100ft Gait Training Goal, Additional Goal Ascend/descent 2 steps Transfer Training Goal Transfer Training Goal, Date Established 04/28/17 Transfer Training Goal, Time to Achieve by discharge Transfer Training Goal, Activity Type kch-cj-lfbqk/eedck-rp-msw;wjw-oz-kjygc/haczx-yn-jhx Transfer Train Goal, Winkler Level independent Transfer Training Goal, Assist Device walker, rolling Clinical Impression Therapy Frequency 3-5 times/wk Predicted Duration of Therapy Intervention (days/wks) 2weeks Anticipated Equipment Needs at Discharge (TBD) Anticipated Discharge Disposition home with assist General Interventions Additional Documentation Planned Therapy Interventions (Group) Planned Therapy Interventions balance training;bed mobility training;gait training;transfer training;stair training * Plan of Care - Lakeisha Renteria RN - 04/28/2017 3:20 AM EST Problem: Patient Care Overview Goal: Plan of Care Review Outcome: Ongoing (Interventions Implemented as Appropriate) 04/27/17 1130 04/27/17 1700 Plan of Care Review Progress progress toward functional goals as expected -- Coping/Psychosocial Plan Of Care Reviewed With -- patient OUTCOME EVALUATION NOTE: OUTCOME SUMMARY: Pt slept between care. Rating pain tolerable with scheduled tylenol and 2-4mg dilaudid. Pt ambulated in room to the bathroom. Pt endorses some numbness on bilat breast, and some swelling in bilat hands and feet. Surgical bra in place. PLAN MOVING FORWARD: Continue to monitor pain, encourage ambulation, discharge INDIVIDUALIZED FALL PREVENTION INTERVENTIONS: Patient-specific fall risk factors per assessment: [current deficits]: Narcotic medications, surgery, POD 1, hospital environment, Assistance [level of assistance required for transfers and ambulation]: one assist with fww, Supervision [direct monitoring required during toileting and ADLs]: hands on, Surveillance [continuous indirect monitoring]: Masimo, purposeful rounding, bed alarm, bedside NKE, Patient-specific fall prevention interventions for sensory deficits provided, if applicable: CPG GOAL OUTCOME EVALUATION: * Plan of Care - Salina Jackson RN - 04/27/2017 6:32 PM EST Problem: Pain, Acute (Adult) Intervention: Monitor/Manage Analgesia 04/27/171822 Manage Acute Burn Pain Bowel Intervention adequate fluid intake promoted;ambulation promoted Pain Management Interventions analgesic trial initiated;gvelid-mzs-ybrqs dosing utilized;pain management plan reviewed with patient/caregiver Safety Interventions Medication Review/Management medications reviewed Intervention: Mutually Develop/Implement Acute Pain Management Plan 04/27/171822 Manage Acute Burn Pain Pain Management Interventions analgesic trial initiated;zhuqfx-scd-uyduq dosing utilized;pain management plan reviewed with patient/caregiver Intervention: Support/Optimize Psychosocial Response to Acute Pain 04/27/17 1700 04/27/17 182 Coping Strategies Supportive Measures -- active listening utilized Diversional Activities television -- Trust Relationship/Rapport care explained;questions answered;reassurance provided;thoughts/feelingsacknowledged -- Goal: Identify Related Risk Factors and Signs and Symptoms Related risk factors and signs and symptoms are identified upon initiation of Human Response Clinical Practice Guideline (CPG) Outcome: Ongoing (Interventions Implemented as Appropriate) 04/27/17 1823 Pain, Acute Related Risk Factors (Acute Pain) surgery Signs and Symptoms (Acute Pain) fatigue/weakness;verbalization of pain descriptors Goal: Acceptable Pain Control/Comfort Level Patient will demonstrate the desired outcomes by discharge/transition of care. Outcome: Ongoing (Interventions Implemented as Appropriate) 04/27/17 182 Pain, Acute (Adult) Acceptable Pain Control/Comfort Level making progress toward outcome Problem: Skin Integrity Impairment, Risk/Actual () Goal: Identify Related Risk Factors and Signs and Symptoms Related risk factors and signs and symptoms are identified upon initiation of Human Response Clinical Practice Guideline (CPG) Outcome: Ongoing (Interventions Implemented as Appropriate) 04/27/17 1823 Skin Integrity Impairment, Risk/Actual () Related Risk Factors (Skin Integrity Impairment) positioning Goal: Skin Integrity Patient will demonstrate the desired outcomes by discharge/transition of care. Outcome: Ongoing (Interventions Implemented as Appropriate) 04/27/17 1823 Skin Integrity Impairment, Risk/Actual (Infant) Skin Integrity making progress toward outcome Goal: Wound Healing Patient will demonstrate the desired outcomes by discharge/transition of care. Outcome: Ongoing (Interventions Implemented as Appropriate) 04/27/17 1823 Skin Integrity Impairment, Risk/Actual () Wound Healing making progress toward outcome Problem: Patient Care Overview Goal: Plan of Care Review Outcome: Ongoing (Interventions Implemented as Appropriate) 04/27/17 1130 04/27/17 170 Plan of Care Review Progress progress toward functional goals as expected -- Coping/Psychosocial Plan Of Care Reviewed With -- patient OUTCOME EVALUATION NOTE: OUTCOME SUMMARY: Pt arrived from PACU AAOx4, alert. [address] draining serosanguineous fluid, bilat breast incisions well approximated with guaze and post op bra in place, HELEN abd incision d/t dressing- CDI with guaze and medipore tape, abd binder in place. Discussed pain plan with pt, she is in agreement. Treviño pulled at 1700, DTV between [id number]. PLAN MOVING FORWARD: Continue to medicate for pain per orders, monitor drain output, and track PVR. INDIVIDUALIZED FALL PREVENTION INTERVENTIONS: Patient-specific fall risk factors per assessment: [current deficits]: recent surgery, narcotics, IV tubing Assistance [level of assistance required for transfers and ambulation]: 1 assist Supervision [direct monitoring required during toileting and ADLs]: Hands on Surveillance [continuous indirect monitoring]: Masimo, hourly rounding Patient-specific fall prevention interventions for sensory deficits provided, if applicable: CPG GOAL OUTCOME EVALUATION: Goal: Fall Prevention-Safe Patient Handling Outcome: Ongoing (Interventions Implemented as Appropriate) 04/27/17 1700 [place] Fall Risk History of Falling 0 Secondary Diagnosis 15 Ambulatory Aids 0 Intravenous Therapy/Heparin/Saline Lock 20 Gait/Transferring 10 Mental Status 0 Score 45 OTHER [place] Fall Risk High Restraint Interventions Safety Promotion/Fall Prevention activity supervised;fall prevention program maintained;nonskid shoes/slippers when out of bed;safety round/check completed;toileting scheduled Positioning Body Position supine Activity Activity Type activity adjusted per tolerance Activity Assistance Provided assistance, 1 person Assistive Device Utilized none Goal: Infection Control Outcome: Ongoing (Interventions Implemented as Appropriate) 04/27/17 1700 04/27/17 1823 Safety Interventions Isolation Precautions standard precautions maintained -- Infection Prevention barrier precautions utilized -- Coping Strategies Supportive Measures -- active listening utilized * Plan of Care - Jasmyn Price, PT - 04/27/2017 4:52 PM EST Physical Therapy Treatment Number PT: 1 (Evaluation) Pertinent History of Current Problem: Wendy Sandoval is a 51 y.o. female with PMH including JACQUELYN on CPAP, HTN, hyperlipidemia, and breast CA (L) - newly diagnosed admitted on 04/26/2017 by Mali Hobson MD for bilateral breast reconstruction after mastectomy with SALVADOR flaps that failed intraoperatively and then Tissue Principal Statistical Programmer placement with FNG. Past Medical History: Diagnosis Date ??? Fibrocystic [...] LARYNGEAL performed by Valentina Lucas MD at [facility] OR ??? PRO BREAST RECONSTRUC W FREE FLAP Bilateral 04/26/2017 @BREAST RECONSTRUCTION W/ FREE FLAP, SUSAN (WRVU 42.58) [facility] ??? PRO BREAST RECONSTRUC W TISS EXPANDR Bilateral 04/26/2017 BREAST RECONSTRUCTION, IMMEDIATE OR DELAYED, W/ TISSUE COLLEGE OR UNIVERSITY REGISTRAR, INCLUDING SUBSEQUENT EXPANSION (WRVU 18.5) performed by Mali Lakhani MD at [facility] OR ??? PRO EXPLORE PARATHYROID GLANDS N/A 11/02/2015 PARATHYROIDECTOMY OR EXPLORATION OF PARATHYROID(S) performed by Valentina Lucas MD at [facility] OR ? ? PRO FULL THICK GRFT TRUNK <20 SQCM Bilateral 04/26/2017 FTSG, FREE, DIR CLOSE DONOR SITE, TRUNK, 20 SQ CM OR LESS (WRVU 9.15) performed by Mali Lakhani MD at [facility] OR ??? PRO MASTECTOMY, SIMPLE, COMPLETE Bilateral 04/26/2017 MASTECTOMY, SIMPLE, COMPLETE-SUSAN (WRVU 15.85) performed by Ria Menendez MD at [facility] OR ??? PRO PARTIAL REMOVAL OF RIB Bilateral 04/26/2017 EXCISION OF RIB, PARTIAL (WRVU 7.26) performed by Mali Lakhani MD at [facility] OR ??? PRO REMOVE ARMPITS LYMPH NODES COMPLT Left 04/26/2017 LYMPHADENECTOMY, AXILLARY, COMPLETE (WRVU 13.87) performed by Ria Menendez MD at [facility] OR ??? PRO THYMECTOMY, TRANSCERVICAL N/A 11/02/2015 THYMECTOMY, TRANSCERVICAL APPROACH performed by Valentina Lucas MD at [facility] OR ??? SHOULDER SURGERY Left ??? UMBILICAL HERNIA REPAIR Living Environment Comment: Wendy lives with her supportive and teenage son in a multi story home with a few ALNOZO from garage, no rail. Her daughter is away at college but will be home to assist PRN over her school break next week. She is typically independent, remains active. Subjective: Patient/Family/Caregiver Comments/Observations: I'd like to get up, I need to get someof this fluid off! Objective: Please see the Rehab Evaluation Summaries section for objective data and specifics of today???s session. Assessment: Pt seen for PT evaluation this morning in the PACU, presents with supportive son at bedside. Patient presents with the following impairments: pain, reduced ROM, reduced functional strength, limited functional endurance, and requires physical assist to perform mobility tasks at this time. Wendy demonstrates remarkable will to participate as able, however was limited by pain on this first attempt OOB this AM. She was able to perform marching in place x~1 min, then returned to bedchair position for rest. Patient would benefit from ongoing inpatient PT services during this hospital admission to address impairments as noted. Precautions Comments: Full code; YG drains x4 (2L, 2R); Maintain trunk flexion >/=30*; NO ICE tosurgical sites (Up with assistance; Regular diet) Staff Mobility Recommendations: ?? 1 assist with (B) Hand hold support or use of rolling walker, maintaining forward flexion at thetrunk Plan: Therapy Frequency: 3-5 times/wk Discharge Recommendations: Anticipated Equipment Needs at Discharge: (TBD pending pt progression) Anticipated Discharge Disposition: home with assist (? home health) TIME IN / OUT: 11:30 - 12:15 04/27/17 1130 Rehab Evaluation Document Type evaluation Total Evaluation Minutes, Physical Therapy 45 Patient Effort excellent Symptoms Noted During/After Treatment increased pain;fatigue General Information Patient Profile Review yes Onset of Illness/Injury or Date of Surgery 04/26/17 Patient/Family/Caregiver Comments/Observations I'd like to get up, I need to get some of this fluid off! General Observations of Patient Pt upright in bed upon arrival, awake / alert and with her supportive teenage son at bedside throughout Pertinent History of Current Problem Wendy Sandoval is a 51 y.o. female with PMH including JACQUELYN on CPAP, HTN, hyperlipidemia, and breast CA (L) - newly diagnosed admitted on 04/26/2017 by Mali Hobson MD for bilateral breast reconstruction after mastectomy with SALVADOR flaps that failed intraoperatively and then Tissue Principal Statistical Programmer placement with FNG. Precautions Comments Full code; YG drains x4 (2L, 2R); Maintain trunk flexion >/=30*; NO ICE to surgical sites (Up with assistance; Regular diet) Treatment Number PT 1 (Evaluation) Living Environment Patient population Adult Living Environment Living Environment Comment Wendy lives with her supportive and teenage son in a multi story home with a few ALONZO from garage, no rail. Her daughter is away at college but will be home to assist PRN over her school break next week. She is typically independent, remains active. Pain Scale/Rating Pain Assessment Scale Numbers (Numeric Rating Pain Scale) Pain Level 4 Mobility Assessment/Training Additional Documentation Bed Mobility Assessment/Treatment (Group);Transfer Assessment/Treatment (Group);Gait Assessment/Treatment (Group) Bed Mobility Assessment/Treatment Assistive Device (Bed Mobility) bed rails;draw sheet (HOB raised) Mglkqj-gj-Kop Winkler (Bed Mobility) minimum assist (75% patient effort);verbal cues required Aej-ce-Hozzsx Winkler (Bed Mobility) moderate assist (50% patient effort);verbal cues required Safety Issues (Bed Mobility) impaired trunk control for bed mobility Impairments (Bed Mobility) pain;balance impaired;strength decreased;ROM (range of motion) decreased (functional endurance limited post op ) Comment (Bed Mobility) performed with increased time Transfer Assessment/Treatment Winkler (Sit-Stand Transfers) minimum assist (75% patient effort);2 person assist required Winkler (Stand-Sit Transfers) minimum assist (75% patient effort);2 person assist required Hij-Jcyyv-Dso Assistive Device (Transfers) ((B) Hand hold support) Impairments (Transfers) pain;balance impaired;strength decreased;ROM (range of motion) decreased (functional endurance limited post op) Comment (Transfers) performed with increased time; Performed marching at EOB x1 min, unable to progress gait 2/2 pain however anticipate with rehearsal would demonstrate improved tolerance. Gait Assessment/Treatment Winkler (Gait) not appropriate to assess (limited by pain, did perform marching in standing) Plan of Care Review Plan Of Care Reviewed With patient;son (JENNYFER Mariel) Progress progress toward functional goals as expected Clinical Impression Therapy Frequency 3-5 times/wk Predicted Duration of Therapy Intervention (days/wks) 2 weeks Anticipated Equipment Needs at Discharge (TBD pending progression over this hospital admission) Anticipated Discharge Disposition home with assist (? home health) General Interventions Additional Documentation Planned Therapy Interventions (Group) Planned Therapy Interventions balance training;bed mobility training;gait training;home exercise program;stair training;strengthening;ROM (range of motion);postural re-education;patient/family education 2016 PT Evaluation Code Rationale: ?? Diagnosis & Pertinent Co-Morbidities, personal factors, and present illness affecting Plan of Care: Patient Active Problem List Diagnosis Code ??? Hypertension I10 ??? Depression F32.9 ??? Obstructive sleep apnea (adult) (pediatric) G47.33 ??? OA (osteoarthritis) M19.90 ??? Overweight(278.02) E66.3 ??? Hyperparathyroidism E21.3 ??? Malignant neoplasm of upper-outer quadrant of left breast in female, estrogen receptor [id number], Z17.0 ??? Status post bilateral breast reconstruction Z98.890 ?? List of Factors: 0 1-2 3+ X ?? Examination of body system impairments, functional limitations and behaviors, that result in participation restrictions. Addressing 1-2 elements Addressing 3 + elements Addressing 4 + elements X ?? Clinical presentation: See assessment above. Stable/Uncomplicated Evolving/Flucuating Symtoms Unstable/Unpredictable X ?? Clinical decision making of high complexity based on pt's functional performance as outlined in this evaluation. JASMYN PRICE PT, DPT Pager: [phone] Inpatient Physical Therapy * Op Note - Alyx Estrella MD - 04/27/2017 1:58 PM EST [facility] Operative Note Patient Name: Wendy Sandoval : [id number] MR#: [id number] Case Date: 04/26/2017 - 04/27/2017 Surgeon: Surgeon(s) and Role: Panel 1: * Mali Lakhani MD - Primary * Kaveh Whiteside MD - Resident-Surgeon Hubert * Alyx Estrella MD - *ASSISTING SURGEON Panel 2: * Ria Menendez MD - Primary Preoperative diagnosis: Left breast cancer Postoperative diagnosis: Left breast cancer Procedure(s) (LRB): @BREAST RECONSTRUCTION W/ FREE FLAP, SUSAN (WRVU 42.58) (Bilateral) EXCISION OF RIB, PARTIAL (WRVU 7.26) (Bilateral) MASTECTOMY, SIMPLE, COMPLETE-SUSAN (WRVU 15.85) (Bilateral) MODIFIER , NIPPLE SPARING (Bilateral) LYMPHADENECTOMY, AXILLARY, COMPLETE (WRVU 13.87) (Left) BREAST RECONSTRUCTION, IMMEDIATE OR DELAYED, W/ TISSUE COLLEGE OR UNIVERSITY REGISTRAR, INCLUDING SUBSEQUENT EXPANSION (WRVU 18.5) (Bilateral) FTSG, FREE, DIR CLOSE DONOR SITE, TRUNK, 20 SQ CM OR LESS (WRVU 9.15) (Bilateral) Findings: Small defect and parietal and visceral pleura of left upper lobe of lung Anesthesia: General Estimated Blood Loss: 80 mL Specimens removed during surgery: None Drains: #10 flat Trey-Lau drain in the left hemithorax Surgical Closure: Wound closure per plastic surgery Disposition: Operation to be completed by plastic surgery Condition: Operation continued at the conclusion of thoracic portion of case (Please see the Surgical Encounter Summary for any Implant and Specimen details pertinent to this patient.) HPI/Surgical Indications: 51-year-old woman undergoing breast reconstruction following a left mastectomy. I was called to the operating room to assist with closure of a small pleural defect. Procedure Description: I assisted intraoperatively during the plastic surgery closure portion of this case. At the time of my evaluation there was an approximately 2 x 1 cm defect in the parietal pleura of the left superior hemithorax, with exposed lung underneath. There were a few bubbles of air coming from this defect. We flooded the field with saline and delivered a Valsalva to confirm that there was a small leak through the visceral pleura of the upper lobe. The leak was too small to closedwith the stapling device and I elected instead to close it with 4-0 PDS. A running suture was used across the defect which measured about 3 mm in size. This was then reinforced with 2 otgxlr-dw-dqftzpanwiqh also in 4-0 PDS. The leak, although still present, was markedly diminished after this. A flat Trey-Lau drain was placed through the pleural defect and then tunneled out through the skin through a separate stab incision. I advised Dr. Lakhani that, at the conclusion of the wound closure, this drain could be placed to a closed suction bulb. In the event that suction was adequate at thedrain can be removed at the conclusion of the case. We planned for a chest x-ray in the recovery room and on the morning of postoperative day 1. ALYX ESTRELLA MD * Consult Note - Oliverio Machado - 04/27/2017 3:00 AM EST [facility] Department of Thoracic Surgery Inpatient Consultation Note [place], [place] [address] FAX: Patient Name: Wendy Sandoval Patient : 1965 Patient Patient Location: [address] This consultation request was made by: MALI LAKHANI Consulting thoracic surgery attending: Alyx Estrella MD HPI: Wendy Sandoval is a 51 y.o. 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 She presented to [facility] on 04/26/2017 for a scheduled bilateral mastectomy and autologous tissue reconstruction with Dr. Menendez and Dr. Lakhani. Intraoperatively, the there was injury to the pleural space and Dr. Estrella was consulted. A flat YG drain was placed into the chest wall defect. Past Medical History: Patient Active Problem List Diagnosis Date Noted ??? Status post bilateral breast reconstruction 04/27/2017 ??? Malignant neoplasm of upper-outer quadrant of left breast in female, estrogen receptor xgjwllae59/10/2018 ??? Hyperparathyroidism 11/02/2015 ??? Obstructive sleep apnea [...] on CPAP ??? Proteinuria Past Surgical History: Past Surgical History: Procedure Laterality Date ??? BREAST BIOPSY Right 11/01 ??? SECTION x 2 ??? HAND SURGERY Right ??? PRG EMG, LARYNX N/A 11/02/2015 FACIAL NERVE MONITORING, SETUP LARYNGEAL performed by Valentina Lucas MD at [facility] OR ??? PRO EXPLORE PARATHYROID GLANDS N/A 11/02/2015 PARATHYROIDECTOMY OR EXPLORATION OF PARATHYROID(S) performed by Valentina Lucas MD at [facility] OR ??? PRO THYMECTOMY, TRANSCERVICAL N/A 11/02/2015 THYMECTOMY, TRANSCERVICAL APPROACH performed by Valentina Lucas MD at [facility] MAIN OR ??? SHOULDER SURGERY Left ??? UMBILICAL HERNIA REPAIR Medications: Outpatient Prescriptions Marked as Taking for the 04/26/17 encounter (Hospital Encounter) Medication Sig Dispense Refill ??? valsartan-hydrochlorothiazide (DIOVAN-HCT) 160-12.5 mg Tablet Take [...] extended release tablet 2 times daily. Allergies: Allergies Allergen Reactions ??? Pcn [Penicillins] [...] 60's ??? Ovarian Cancer Neg Hx Social History: Social History Social History ??? Marital status: [...] ??? Not on file Social History Narrative Review of Systems: Patient reports moderate throbbing pain of both breasts Patient denies cp, sob, pleurisy, cough, palpitations, headache, nausea, vomiting, abdominal pain, calf pain/swelling, numbness or tingling of the extremities. Vitals: Temp: [36.6 ??C (97.9 ??F)-36.9 ??C (98.4 ??F)] Heart Rate: [82-122] Resp: [9-24] BP: (146-167)/(76-91) SpO2: [89 %-97 %] Heart Rate from SPO2: [101 bpm-122 bpm] Wt & BMI By Encounter Date Admission (Current) from 04/26/2017 in PACU at [facility] Office Visit from 04/05/2017 in Plastic Surgery at [place] Weight 76.7 kg (169 lb) 1 04/26/2017 0619 76.7 kg (169 lb 1.5 oz) [per 03/29/17 apppt] 1 04/05/2017 0959 BMI 33 1 04/26/2017 0619 31.96 1 04/05/2017 0959 Recent Labs 04/27/17 0100 WBC 22.7* HGB 12.0 HCT 36.3 PLATELET 337 No results for input(s): INR in the last 72 hours. Recent Labs 04/27/17 0100 NA 140 K 3.4* CL 98 CO2 18* BUN 25* CREATININE 1.40* Physical Exam: Gen: NAD, AAOx3 Neck: supple, trachea midline Card: RRR, no M/R/G appreciated Chest: post operative dressings cdi Pulm: CTAB, no wheeze/ronchi/rales appreciated, non-labored breathing on 3L NC Abd: soft, NT, BS+ Ext: warm, dry, no edema Neuro: nonfocal Diagnostics: CXR 04/27 FINDINGS: Interval bilateral mastectomy and breast reconstruction with tissue expanders noted bilaterally. No visible pneumothorax. No focal consolidation or pleural effusion. The cardiac silhouette is normal in size. ?? IMPRESSION No visible pneumothorax. Assessment: Wendy Sandoval is a 51 y.o. female with PMHx significant for ER/KY+ HER2- invasive ductal carcinoma s/p bilateral mastectomy and reconstruction who sustained a pleural injury. Dr. Estrella placed a flat YG drain intraoperatively. This was subsequently removed at the end of the case. CXR post operatively was negative for PTX Recommendations: 1. Continue close monitoring for signs of developing pneumothorax, or respiratory 2. Please do not hesitate to contact thoracic surgery with any further questions or concerns. All plans formulated in discussion with and directed by attending thoracic surgeon Dr. Estrella . Lukasz Stratton MD 04/27/2017 Thoracic Surgery Service Pager [phone] Associated attestation - Alyx Estrella MD - 04/27/2017 12:55 PM EST I assisted Dr. Lakhani with the care of this patient intraoperatively. In brief, the patient had a small pleural defect during a flap reconstruction following mastectomy. I reinforced the defect in the visceral pleura with 4-0 PDS suture and assisted with placement of a flat YG drain through the pleural defect. This was connected initially to a closed suction bulb drainage system and because it helps pressure adequately the drain was removed at the conclusion of the case. The patient has no evidence of recurrent pneumothorax and does not require additional drains. Recommend obtaining a discharge chest x-ray, and a chest x- ray at postoperative follow-up. ALYX ESTRELLA MD * Brief Op Note - Kaveh Whiteside MD - 04/27/2017 12:27 AM EST [facility] Brief Operative Note Patient Name: Wendy Sandoval : 1965 MR#: [id number] Case Date: 04/26/2017 Surgeon: Surgeon(s) and Role: MD Ammy - Primary MD Stevo Preoperative diagnosis: Left breast cancer Postoperative diagnosis: Left breast cancer Procedure(s): @BREAST RECONSTRUCTION W/ FREE FLAP, SUSAN (WRVU 42.58) EXCISION OF RIB, PARTIAL (WRVU 7.26) BREAST RECONSTRUCTION, IMMEDIATE OR DELAYED, W/ TISSUE COLLEGE OR UNIVERSITY REGISTRAR, INCLUDING SUBSEQUENT EXPANSION (WRVU 18.5) FTSG, FREE, DIR CLOSE DONOR SITE, TRUNK, 20 SQ CM OR LESS (WRVU 9.15) Anesthesia: gen Estimated Blood Loss: 100cc Specimens removed during surgery: see Dr Menendez's portion of case Drains: 19F x 2 abdomen, 15F b/l breast Surgical Closure: prolene Implant(s): Implant Name Type Inv. Item Serial No. Direct Care Provider Lot No. LRB No. Used Action BLOWER INSTALLER,GOLD,3.0MM ([id number]) - [id number] IMPLANTS BLOWER INSTALLER,GOLD,3.0MM ([id number]) [employer] - - [id number] Left 1 Implanted and Explanted BLOWER INSTALLER,GOLD,3.0MM ([id number]) - [id number] IMPLANTS BLOWER INSTALLER,GOLD,3.0MM ([id number]) [employer] - - [id number] Left 1 Implanted and Explanted BLOWER INSTALLER,GOLD,3.0MM ([id number]) - [id number] IMPLANTS BLOWER INSTALLER,GOLD,3.0MM ([id number]) [employer] - - [id number] Right 1 Implanted and Explanted EXPAND,TISS,ARTOURA,600CC ([id number]) (AUTOREQ) - [id number] IMPLANTS EXPAND,TISS,ARTOURA,600CC ([id number]) (AUTOREQ) [id number] [facility] [id number] Right 1 Implanted EXPAND,TISS,ARTOURA,600CC ([id number]) (AUTOREQ) - [id number] IMPLANTS EXPAND,TISS,ARTOURA,600CC ([id number]) (AUTOREQ) [id number] [facility] [id number] Left 1 Implanted Disposition: awakened from anesthesia, extubated and taken to the recovery room in a stable condition, having suffered no apparent untoward event. Condition: doing well without problems (Please see the Surgical Encounter Summary for any Implant and Specimen details pertinent to this patient.) Post-Op Plan: Sutures out 10-14 days Drains out when < 10cc 2 days consecutively Post op CXR Future Appointments Date Time Provider Department Center 05/07/2017 10:00 AM Romy Abarca, PT PT Rehab [facility] 05/14/2017 9:00 AM NURSE, PLASTIC SURGERY [facility] [address] [place] [address] 05/14/2017 10:00 AM Ria Menendez MD [facility] 05/14/2017 3:30 PM Gustavo Mota MD [facility] Hem Onc [facility] 05/21/2017 8:[address] [facility] Mcke[facility] 05/21/2017 9:00 AM Emily Choi MD [facility] Kaveh Whiteside MD Plastic Surgery, PGY-7 * Op Note - Ria Menendez MD - 04/26/2017 1:02 PM EST [facility] Operative Note Patient Name: Wendy Sandoval : [id number] MR#: [id number] Case Date: 04/26/2017 Surgeon: Surgeon(s) and Role: Panel 1: * Mali Lakhani MD - Primary * Kaveh Whiteside MD - Resident-Surgeon Hubert Panel 2: * Ria Menendez MD - Primary Preoperative diagnosis: Left breast cancer Postoperative diagnosis: Left breast cancer Procedure(s) (LRB): @BREAST RECONSTRUCTION W/ FREE FLAP, SUSAN (WRVU 42.58) (Bilateral) EXCISION OF RIB, PARTIAL (WRVU 7.26) (Bilateral) MASTECTOMY, SIMPLE, COMPLETE-SUSAN (WRVU 15.85) (Bilateral) MODIFIER , NIPPLE SPARING (Bilateral) LYMPHADENECTOMY, AXILLARY, COMPLETE (WRVU 13.87) (Left) Anesthesia: General Estimated Blood Loss: 80 mL Specimens removed during surgery: Order Name Source Comment Collection Info Order Time SPECIMEN TO PATHOLOGY Short Stitch=Superior, Long Stitch=Lateral, Single Stitch=Base of Nipple. [id number] Left Breast Cancer Left Breast Yes Excision 04/26/2017 10:52 AM Time removed from patient: 10:50 AM SPECIMEN TO PATHOLOGY [id number] Left Breast Cancer Left Axillary Dissection Yes Excision 04/26/2017 10:52 AM Time removed from patient: 10:52 AM SPECIMEN TO PATHOLOGY Left breast cancer right breast. short suture superior. long suture lateral. single suture base of nipple Excision 04/26/2017 11:56 AM Time removed from patient: 11:56 AM Drains: Per plastic surgery Surgical Closure: left open for plastic surgery closure Disposition: stable in OR with plastic surgeyr Condition: doing well without problems (Please see the Surgical Encounter Summary for any Implant and Specimen details pertinent to this patient.) HPI/Surgical Indications: Wendy is a 51 yo female with node positive left breast cancer. She has opted for bilateral skin sparing mastectomy (with free nipple grafts) and and left axillary dissection given known brannon disease. Procedure Description: Wendy was admitted through Same Day Surgery. She was brought to the Operating Room and laid supine on the operating table. General anesthetics were administered, and an ETT was placed. The chest and abdomen were prepped and draped in sterile fashion. A time-out confirmed the patient's identity, the correct surgical sites, and the administration of prophylactic antibiotics. Once this had been confirmed, attention was turned to the left breast. Here an elliptical incision inclusive of the nipple and areolar was made. The nipple/areolar complex was later removed for free nipple graft and the site of base of nipple was marked for pathology. The incision was brought through the dermis using electrocautery. Skin flaps were elevated circumferentially until the breast was mobilized superiorly to the infraclavicular border, medially to the sternal border, laterally to the latissimus, and inferiorly to the inframammary fold. The breast was then mobilized inclusive of the underlying pectoralismajor fascia, marked on the anatomic margins, and sent to Pathology. Through the same incision, level 1 and 2 axillary dissection was performed. There was no adenopathyin level 3 upon palpation. The medial border of the latissimus dorsi was dissected. Along the medial border, the thoracodorsal nerves were identified and skeletonized using blunt and sharp dissection. Venous perforators were clipped and ligated as necessary. At this point, the long thoracic nerve was identified along the serratus and skeletonized and mobilized medially to preserve function throughout the dissection. The level 1 axilla was then mobilized from the underlying subscapularis muscle.Again, clips were used to maintain hemostasis where necessary. The entirety of the level 1 axilla was excised. At this point, the level 2 axilla was bluntly dissected. The long thoracic and thoracodorsal nerves were checked and were noted to be functioning. The wound was left open for plastic surgery reconstruction. Attention was then turned to the right breast. In identical fashion, skin sparing mastectomy was performed (with preservation of the nipple /areolar complex via free nipple graft). The wounds were left open for plastic surgical reconstruction. Given complexity of surgery, modified 22 applies. Infection Bundle used? N/A Attestation: Case Date: 04/26/2017 I performed this procedure without the involvement of a resident. RIA MENENDEZ MD 04/26/2017 documented in this encounter Plan of Treatment Upcoming Encounters Date Type Department Care Team (Late st Contact Info) Description 01/22/2024 10:30 AM EST Appointment Mammography/[place] [address] Ladi Mendosa MD [facility] HEMATOLOGY/[place] [address] 01/30/2024 11:30 AM EST Office Visit Dermatology at [place] [address] [place] [address] Nilda Luis MD [facility] [address] [place] [address] 02/15/2024 9:30 AM EST Appointment [place] [id number] [place] [address] documented as of this encounter Procedures Procedure Name Priority Date/Time Associated Diagnosis Comments IMPLANTABLE DEVICES SCAN 05/02/2017 12:00 AM EDT HEMOGRAM Routine 05/01/2017 3:39 AM EDT DIFFERENTIAL, AUTOMATED Routine 05/01/2017 3:39 AM EDT CBC (WITH DIFF) Routine 05/01/2017 3:39 AM EDT MAGNESIUM Routine 05/01/2017 3:39 AM EDT BASIC METABOLIC PANEL (NON-FASTING) Routine 05/01/2017 3:39 AM EDT IR BREAST DRAIN PLACEMENT Routine 04/30/2017 11:18 AM EDT HEMOGRAM Routine 04/30/2017 3:27 AM EDT DIFFERENTIAL, AUTOMATED Routine 04/30/2017 3:27 AM EDT CBC (WITH DIFF) Routine 04/30/2017 3:27 AM EDT MAGNESIUM Routine 04/30/2017 3:27 AM EDT BASIC METABOLIC PANEL (NON-FASTING) Routine 04/30/2017 3:27 AM EDT HEMOGRAM Routine 04/29/2017 8:09 AM EDT DIFFERENTIAL, AUTOMATED Routine 04/29/2017 8:09 AM EDT CBC (WITH DIFF) Routine 04/29/2017 8:09 AM EDT MAGNESIUM Routine 04/29/2017 8:09 AM EDT BASIC METABOLIC PANEL (NON-FASTING) Routine 04/29/2017 8:09 AM EDT HEMOGRAM Routine 04/28/2017 4:26 AM EST DIFFERENTIAL, AUTOMATED Routine 04/28/2017 4:26 AM EST CBC (WITH DIFF) Routine 04/28/2017 4:26 AM EST MAGNESIUM Routine 04/28/2017 4:26 AM EST BASIC METABOLIC PANEL (NON-FASTING) Routine 04/28/2017 4:26 AM EST EKG 12-LEAD STAT 04/27/2017 3:45 PM EST Status post bilateral breast reconstruction XR CHEST ONE VIEW STAT 04/27/2017 3:3 2 PM EST XR CHEST ONE VIEW Routine 04/27/2017 1:4 5 AM EST SCAN, PERIPHERAL BLOOD Routine 8 1:00 AM EST HEMOGRAM Routine 04/27/2017 1:00 AM EST DIFFERENTIAL, AUTOMATED Routine 04/27/2017 1:00 AM EST CREATININE Routine 04/27/2017 1:00 AM EST CBC (WITH DIFF) Routine 04/27/2017 1:00 AM EST BUN Routine 04/27/2017 1:00 AM EST PHOSPHORUS Routine 04/27/2017 1:00 AM EST MAGNESIUM Routine 04/27/2017 1:00 AM EST CALCIUM Routine 04/27/2017 1:00 AM EST ELECTROLYTES PANEL Routine 04/27/2017 1: 00 AM EST BREAST RECONSTRUC, IMMED/DELAY, W/TISSUE EXPAND, INCLUD SUBSEQ EXPANS Routine 04/27/2017 12:20 AM EST FTSG, FREE, DIR CLOSE DONOR SITE, TRUNK, 20 SQ CM OR LESS Routine 04/27/2017 12:20 AM EST SPECIMEN TO PATHOLOGY Routine 04/26/2017 11:57 AM EST SPECIMEN TO PATHOLOGY Routine 04/26/2017 10:52 AM EST SPECIMEN TO PATHOLOGY Routine 04/26/2017 10:52 AM EST SURGICAL PATHOLOGY REPORT Routine 04/26/2017 10:50 AM EST FTSG, FREE, DIR CLOSE DONOR SITE, TRUNK, 20 SQ CM OR LESS (WRVU 9.15) 04/26/2017 7:40 AM EST Left breast cancer BREAST RECONSTRUCTION, IMMEDIATE OR DELAYED, W/ TISSUE COLLEGE OR UNIVERSITY REGISTRAR, INCLUDING SUBSEQUENT EXPANSION (WRVU 14.84) 04/26/2017 7:40 AM EST Left breast cancer LYMPHADENECTOMY, AXILLARY, COMPLETE (WRVU 13.87) 04/26/2017 7:40 AM EST Left breast cancer MODIFIER , NIPPLE SPARING 04/26/2017 7:40 AM EST Left breast cancer MASTECTOMY, SIMPLE, COMPLETE-SUSAN (WRVU 15) 04/26/2017 7:40 AM EST Left breast cancer EXCISION OF RIB, PARTIAL (WRVU 7.26) 04/26/2017 7:40 AM EST Left breast cancer @BREAST RECONSTRUCTION W/ FREE FLAP, SUSAN (WRVU 42.58) 04/26/2017 7:40 AM EST Left breast cancer MASTECTOMY, SIMPLE, COMPLETE, SUSAN Routine 04/26/2017 6:14 AM EST LYMPHADENECTOMY,AXILLA RY,COMPLETE Routine 04/26/2017 6:14 AM EST EXCISION OF RIB, PARTIAL Routine 04/26/2017 6:14 AM EST documented in this encounter Results * SCAN DOC: IMPLANTABLE DEVICES (05/02/2017 12:00 AM EDT) Narrative 05/02/2017 12:00 AM EDT Ordered by an unspecified provider. Scanning Provider MEDIA MGR SCAN EXT O RDR/RSLT * (ABNORMAL) Differential, Automated (05/01/2017 3:39 AM EDT) Neutrophils % 63.4 % [facility] Neutr Abs (ANC) 10.92(H) 1.70 - 6.10 x10(3)/[facility] LABORATORY Lymphocytes % 16.8 % [facility] Lymphocytes Abs 2.9 0.9 - 3.2 x10(3)/[facility] LABORATORY Monocytes % 9.8 % [facility] Monocyte Abs 1.7(H) 0.3 - 0.9 x10(3)/[facility] LABOR[facility]ORY Eosinophils % 5.1 % [facility] Eosinophils Abs 0.9(H) 0.0 - 0.4 x10(3)/[facility] LABORATORY Basophils % 1.5 % [facility] Basophils Abs 0.2(H) 0.0 - 0.1 x10(3)/[facility] LABORATORY Immature Gran % 3.40 % [facility] Comment: Immature granulocytes(IG's)percentage and absolute count will include metamyelocytes, myelocytes, and promyelocytes. Blood smears from CBCs yielding IG's will be scanned manually for concordance. If this scan disagrees with the automated IG or if promyelocytes are noted, a manual differential will be performed. Nova Gran Abs 0.59(H) 0.00 - 0.04 x10(3)/[facility] LABORATORY Blood specimen (specimen) 05/01/2017 3:39 AM EDT 05/01/2017 3:51 AM EDT Narrative Resulting Agency Comment Spec In Lab Yo Krueger MD HEMATOLOGY ORDERABLE S [facility] [place] [address] * (ABNORMAL) Hemogram (05/01/2017 3:39 AM EDT) WBC 17.2(H) 4.0 - 9.5 x10(3)/[facility] LAB[facility] RBC 3.87(L) 4.00 - 5.21 x10(6)/[facility] Hemoglobin 12.2 11.7 - 15.5 gm/dL [facility] Hematocrit 36.4 35.7 - 45.8 % [facility] MCV 94.1 82.6 - 94.4 [facility]ORY MCH 31.5 27.1 - 32.0 pg [facility] MCHC 33.5 31.7 - 35.0 gm/dL [facility] Platelets 402(H) 145 - 357 x10(3)/[facility] RDWSD 47.7(H) 37.0 - 46.0 fL [facility] RDWCV 14.0 11.5 - 14.1 % [facility] MPV 8.9 7.6 - 12.9 [facility] nRBC % Auto 0.0 % [facility] nRBC Abs Auto 0.000 0.000 - 0.000 x10(3)/[facility] Blood specimen (specimen) 05/01/2017 3:39 AM EDT 05/01/2017 3:51 AM EDT Narrative Resulting Agency Comment Spec In Lab Yo Krueger MD HEMATOLOGY ORDERABLE S Performing Organization Address City/[facility]/ZIP Co de Phone Number [facility] [place] [address] * Magnesium (05/01/2017 3:39 AM EDT) Magnesium 0.78 0.69 - 1.07 mmol/L [facility] Blood specimen (specimen) 05/01/2017 3:39 AM EDT 05/01/2017 3:51 AM EDT Narrative Resulting Agency Comment Spec In Lab Mali Lakhani MD CHEMISTRY ORDERABLES Performing Organization Address City/[facility]/ZIP Co de Phone Number [facility] [place] [address] * (ABNORMAL) Basic Metabolic Panel (non-fasting) (05/01/2017 3:39 AM EDT) Glucose Lvl 95 65 - 199 mg/dL [facility] Comment:Diabetes: >=200 mg/d L plus symptoms BUN 17 8 - 18 mg/dL [facility] Creatinine 1.01 0.70 - 1.20 mg/dL [facility] Sodium 142 135 - 145 mmol/L [facility] questions. Chloride 102 98 - 107 mmol/L [facility] CO2 27 22 - 31 mmol/L [facility] Anion Gap 13 5 - 15 mmol/L [facility] Calcium 8.5 8.5 - 10.5 mg/dL [facility] Estimated GFR 57(L) >=60 [facility] Comment: The reported eGFR should be multiplied by 1.2 for patients. The MDRD is not an appropriate measure of renal function for patients with body mass extremes or in patients with acute kidney failure. [email or web address] [email or web address] Blood specimen (specimen) 05/01/2017 3:39 AM EDT 05/01/2017 3:51 AM EDT Narrative Resulting Agency Comment Spec In Lab Mali Lakhani MD CHEMISTRY ORDERABLES [facility] [place] [address] * IR Breast Drain Placement (04/30/2017 11:18 AM EDT) Anatomical Region Laterality Modality X-Ray Angiograph y Narrative 04/30/2017 11:22 AM EDT IR PROCEDURE NOTE ?? Procedure: Right breast drain via existing tract. ?? Indication for Procedure: Per Wendy Vicente APRN Yannick Sandoval??is a 51 y.o.??female??with breast CA to the left. ?Pt underwent bilateral breast reconstruction after mastectomy with SALVADOR flaps (04/26/17); ??complicated by intraoperative demise followed by Tissue Principal Statistical Programmer placement. ??Patient has a RIGHT breast insitu with large volume output. ??The drain has become partially dislodged. ?? Procedure events and findings: After obtaining informed consent, patient was positioned supine on procedure table and sterile prep and drape performed. ??Maximum sterile barrier technique was used throughout. ?? Fluoroscopy showed only a few cm of catheter still in patient. ??Contrast injection via the existing drainage catheter showed no drain lumen in patient. ??Drain removed. ??An angled catheter and guide wire were placed and directed under fluoroscopy through the drain tract. ??Contrast injection showed a space circumferentially around the tissue factory helper. A 10Fr catheter was placed over the guide wire with the pigtail formed at 6 o'clock vs the breast implant with the idea that 6 o'clock would be dependent when Ms. Sandoval upright. ?? Access site dressed. ?? Medications: Fentanyl 100 mcg IV, Versed 2mg IV, 1% Lidocaine <10ccs subcutaneous. ?? Est Blood Loss: <5cc. ?? Complications: ??No immediate. ?? Impression: ?? 1. ??Existing right breast drain was retracted, only a few cm still in pt. ?? 2. ??10Fr locking loop drain placed via the existing drain tract, pigtail at 6 o'clock vs the breast implant. ?? 3. ??Drain to bulb suction. ??Will plan for f/u in ~2 weeks assuming output declines. ?? Resident/Fellow: ??None. ?? Attending: I, Dr. Crowley performed this procedure. ??I was present during the intraservice time as documented by the IR Nurse.? Mali Lakhani MD IMG IR ORDERABLES * (ABNORMAL) Differential, Automated (04/30/2017 3:27 AM EDT) Neutrophils % 61.8 % [facility] Neutr Abs (ANC) 9.05(H) 1.70 - 6.10 x10(3)/[facility] LABORATORY Lymphocytes % 19.6 % [facility] Lymphocytes Abs 2.9 0.9 - 3.2 x10(3)/[facility] LABORATORY Monocytes % 9.3 % [facility] Monocyte Abs 1.4(H) 0.3 - 0.9 x10(3)/[facility] LABORATORY Eosinophils % 5.3 % [facility] Eosinophils Abs 0.8(H) 0.0 - 0.4 x10(3)/[facility] LAB[facility] Basophils % 1.3 % [facility] Basophils Abs 0.2(H) 0.0 - 0.1 x10(3)/[facility] LABORATORY Immature Gran % 2.70 % [facility] Comment: Immature granulocytes(IG's)percentage and absolute count will include metamyelocytes, myelocytes, and promyelocytes. Blood smears from CBCs yielding IG's will be scanned manually for concordance. If this scan disagrees with the automated IG or if promyelocytes are noted, a manual differential will be performed. Nova Gran Abs 0.40(H) 0.00 - 0.04 x10(3)/[facility] LABORATORY Blood specimen (specimen) 04/30/2017 3:27 AM EDT 04/30/2017 3:47 AM EDT Narrative Resulting Agency Comment Spec In Lab Yo Krueger MD HEMATOLOGY ORDERABLE S [facility] [place] [address] * (ABNORMAL) Hemogram (04/30/2017 3:27 AM EDT) WBC 14.7(H) 4.0 - 9.5 x10(3)/[facility] RBC 3.62(L) 4.00 - 5.21 x10(6)/[facility] Hemoglobin 11.5(L) 11.7 - 15.5 gm/dL [facility] Hematocrit 34.5(L) 35.7 - 45.8 % [facility] MCV 95.3(H) 82.6 - 94.4 [facility] LAB[facility]ORY MCH 31.8 27.1 - 32.0 pg [facility] MCHC 33.3 31.7 - 35.0 gm/dL [facility] Platelets 350 145 - 357 x10(3)/[facility] RDWSD 49.0(H) 37.0 - 46.0 [facility] RDWCV 13.9 11.5 - 14.1 % [facility] MPV 9.1 7.6 - 12.9 [facility] nRBC % Auto 0.0 % [facility] nRBC Abs Auto 0.000 0.000 - 0.000 x10(3)/[facility] Blood specimen (specimen) 04/30/2017 3:27 AM EDT 04/30/2017 3:47 AM EDT Narrative Resulting Agency Comment Spec In Lab Yo Krueger MD HEMATOLOGY ORDERABLE S Performing Organization Address City/[facility] Co de Phone Number [facility] [place] [address] * Magnesium (04/30/2017 3:27 AM EDT) Magnesium 0.84 0.69 - 1.07 mmol/L [facility] Blood specimen (specimen) 04/30/2017 3:27 AM EDT 04/30/2017 3:47 AM EDT Narrative Resulting Agency Comment Spec In Lab Mali Lakhani MD CHEMISTRY ORDERABLES Performing Organization Address City/[facility]/ZIP Co de Phone Number [facility] [place] [address] * (ABNORMAL) Basic Metabolic Panel (non-fasting) (04/30/2017 3:27 AM EDT) Glucose Lvl 99 65 - 199 mg/dL [facility] Comment:Diabetes: >=200 mg/d L plus symptoms BUN 16 8 - 18 mg/dL [facility] Creatinine 1.00 0.70 - 1.20 mg/dL [facility] Sodium 145 135 - 145 mmol/L [facility] Potassium 3.8 3.5 - 5.0 mmol/L [facility] Comment: Please note: ??Patients with WBC >100,000 may have falsely elevated Potassium levels. ??For accurate Potassium quantification in these patients send serum separator tube (gold top) for subsequent determinations. ??Contact the Clinical Chemistry Laboratory if there are any questions. Chloride 106 98 - 107 mmol/L [facility] CO2 26 22 - 31 mmol/L [facility] Anion Gap 13 5 - 15 mmol/L [facility] Calcium 8.3(L) 8.5 - 10.5 mg/dL [facility] Estimated GFR 58(L) >=60 [facility] Comment: The reported eGFR should be multiplied by 1.2 for patients. The MDRD is not an appropriate measure of renal function for patients with body mass extremes or in patients with acute kidney failure. http://[employer]/DHnkdep [email or web address] Blood specimen (specimen) 04/30/2017 3:27 AM EDT 04/30/2017 3:47 AM EDT Narrative Resulting Agency Comment Spec In Lab Mali Lakhani MD CHEMISTRY ORDERABLES Performing Organization Address City/[facility] Co de Phone Number [facility] [place] [address] * (ABNORMAL) Differential, Automated (04/29/2017 8:09 AM EDT) Neutrophils % 70.4 % [facility] Neutr Abs (ANC) 11.03(H) 1.70 - 6.10 x10(3)/[facility] LABORATORY Lymphocytes % 14.7 % [facility] Lymphocytes Abs 2.3 0.9 - 3.2 x10(3)/[facility] LAB[facility] Monocytes % 9.1 % [facility] Monocyte Abs 1.4(H) 0.3 - 0.9 x10(3)/[facility] Eosinophils % 3.7 % [facility] Eosinophils Abs 0.6(H) 0.0 - 0.4 x10(3)/[facility] Basophils % 1.0 % [facility] Basophils Abs 0.2(H) 0.0 - 0.1 x10(3)/[facility] LAB[facility] Immature Gran % 1.10 % [facility] Comment: Immature granulocytes(IG's)percentage and absolute count will include metamyelocytes, myelocytes, and promyelocytes. Blood smears from CBCs yielding IG's will be scanned manually for concordance. If this scan disagrees with the automated IG or if promyelocytes are noted, a manual differential will be performed. Nova Gran Abs 0.18(H) 0.00 - 0.04 x10(3)/[facility] LAB[facility] Blood specimen (specimen) 04/29/2017 8:09 AM EDT 04/29/2017 8:16 AM EDT Narrative Resulting Agency Comment Spec In Lab Yo Krueger MD HEMATOLOGY ORDERABLE S [facility] [place] [address] * (ABNORMAL) Hemogram (04/29/2017 8:09 AM EDT) WBC 15.7(H) 4.0 - 9.5 x10(3)/[facility] RBC 3.70(L) 4.00 - 5.21 x10(6)/[facility] Hemoglobin 11.8 11.7 - 15.5 gm/dL [facility] Hematocrit 34.6(L) 35.7 - 45.8 % [facility] MCV 93.5 82.6 - 94.4 fL [facility] MCH 31.9 27.1 - 32.0 pg [facility] MCHC 34.1 31.7 - 35.0 gm/dL [facility] Platelets 300 145 - 357 x10(3)/[facility] RDWSD 47.6(H) 37.0 - 46.0 [facility] RDWCV 13.9 11.5 - 14.1 % [facility] MPV 9.2 7.6 - 12.9 [facility] nRBC % Auto 0.0 % [facility] nRBC Abs Auto 0.000 0.000 - 0.000 x10(3)/[facility] Blood specimen (specimen) 04/29/2017 8:09 AM EDT 04/29/2017 8:16 AM EDT Narrative Resulting Agency Comment Spec In Lab Yo Krueger MD HEMATOLOGY ORDERABLE S Performing Organization Address City/[facility]/ZIP Co de Phone Number [facility] [place] [address] * Magnesium (04/29/2017 8:09 AM EDT) Magnesium 0.88 0.69 - 1.07 mmol/L [facility] Blood specimen (specimen) 04/29/2017 8:09 AM EDT 04/29/2017 8:16 AM EDT Narrative Resulting Agency Comment Spec In Lab Mali Lakhani MD CHEMISTRY ORDERABLES Performing Organization Address City/[facility]/ZIP Co de Phone Number [facility] [place] [address] * (ABNORMAL) Basic Metabolic Panel (non-fasting) (04/29/2017 8:09 AM EDT) [facility] Glucose Lvl 114 65 - 199 mg/dL [facility] Comment:Diabetes: >=200 mg/d L plus symptoms BUN 16 8 - 18 mg/dL [facility] Creatinine 0.89 0.70 - 1.20 mg/dL [facility] Sodium 142 135 - 145 mmol/L [facility] Potassium 3.5 3.5 - 5.0 mmol/L [facility] Comment: Please note: ??Patients with WBC >100,000 may have falsely elevated Potassium levels. ??For accurate Potassium quantification in these patients send serum separator tube (gold top) for subsequent determinations. ??Contact the Clinical Chemistry Laboratory if there are any questions. Chloride 104 98 - 107 mmol/L [facility] CO2 25 22 - 31 mmol/L [facility] Anion Gap 13 5 - 15 mmol/L [facility] Calcium 7.9(L) 8.5 - 10.5 mg/dL [facility] Estimated GFR >60 >=60 [facility] Comment: The reported eGFR should be multiplied by 1.2 for patients. The MDRD is not an appropriate measure of renal function for patients with body mass extremes or in patients with acute kidney failure. http://[employer]/DHnkdep [email or web address]://[email or web address]/DHMCnkf Blood specimen (specimen) 04/29/2017 8:09 AM EDT 04/29/2017 8:16 AM EDT Narrative Resulting Agency Comment Spec In Lab Mali Lakhani MD CHEMISTRY ORDERABLES [facility] [place] [address] * (ABNORMAL) Differential, Automated (04/28/2017 4:26 AM EST) Neutrophils % 78.7 % [facility] Neutr Abs (ANC) 14.15(H) 1.70 - 6.10 x10(3)/[facility] LABORATORY Lymphocytes % 8.4 % [facility] Lymphocytes Abs 1.5 0.9 - 3.2 x10(3)/[facility]ORY Monocytes % 11.2 % [facility] Monocyte Abs 2.0(H) 0.3 - 0.9 x10(3)/[facility] Eosinophils % 0.4 % [facility] Eosinophils Abs 0.1 0.0 - 0.4 x10(3)/[facility] LABOR[facility] Basophils % 0.4 % [facility] Basophils Abs 0.1 0.0 - 0.1 x10(3)/[facility] LABOR[facility]ORY Immature Gran % 0.90 % [facility] Comment: Immature granulocytes(IG's)percentage and absolute count will include metamyelocytes, myelocytes, and promyelocytes. Blood smears from CBCs yielding IG's will be scanned manually for concordance. If this scan disagrees with the automated IG or if promyelocytes are noted, a manual differential will be performed. Nova Gran Abs 0.17(H) 0.00 - 0.04 x10(3)/[facility] LABOR[facility] Blood specimen (specimen) 04/28/2017 4:26 AM EST 04/28/2017 4:50 AM EST Narrative Resulting Agency Comment Spec In Lab Yo Krueger MD HEMATOLOGY ORDERABLE S [facility] [place] [address] * (ABNORMAL) Hemogram (04/28/2017 4:26 AM EST) WBC 18.0(H) 4.0 - 9.5 x10(3)/[facility] RBC 3.43(L) 4.00 - 5.21 x10(6)/[facility] Hemoglobin 10.7(L) 11.7 - 15.5 gm/dL [facility] Hematocrit 31.6(L) 35.7 - 45.8 % [facility] MCV 92.1 82.6 - 94.4 [facility] MCH 31.2 27.1 - 32.0 pg [facility] MCHC 33.9 31.7 - 35.0 gm/dL [facility] Platelets 289 145 - 357 x10(3)/[facility] RDWSD 46.9(H) 37.0 - 46.0 [facility] RDWCV 13.8 11.5 - 14.1 % [facility] MPV 9.4 7.6 - 12.9 [facility] nRBC % Auto 0.0 % [facility] nRBC Abs Auto 0.000 0.000 - 0.000 x10(3)/[facility] Blood specimen (specimen) 04/28/2017 4:26 AM EST 04/28/2017 4:50 AM EST Narrative Resulting Agency Comment Spec In Lab Yo Krueger MD HEMATOLOGY ORDERABLE S Performing Organization Address City/[facility]/[place] [address] * (ABNORMAL) Magnesium (04/28/2017 4:26 AM EST) Magnesium 1.20(H) 0.69 - 1.07 mmol/L [facility] Comment:result rechecked-imm Blood specimen (specimen) 04/28/2017 4:26 AM EST 04/28/2017 4:50 AM EST Narrative Resulting Agency Comment Spec In Lab Mali Lakhani MD CHEMISTRY ORDERABLES [facility] [place] [address] * (ABNORMAL) Basic Metabolic Panel (non-fasting) (04/28/2017 4:26 AM EST) Glucose Lvl 149 65 - 199 mg/dL [facility] Comment:Diabetes: >=200 mg/d L plus symptoms BUN 29(H) 8 - 18 mg/dL [facility] Creatinine 1.09 0.70 - 1.20 mg/dL [facility] Sodium 139 135 - 145 mmol/L [facility] Potassium 3.2(L) 3.5 - 5.0 mmol/L [facility] Comment: Please note: ??Patients with WBC >100,000 may have falsely elevated Potassium levels. ??For accurate Potassium quantification in these patients send serum separator tube (gold top) for subsequent determinations. ??Contact the Clinical Chemistry Laboratory if there are any questions. Chloride 102 98 - 107 mmol/L [facility] CO2 23 22 - 31 mmol/L [facility] Anion Gap 14 5 - 15 mmol/L [facility] Calcium 7.3(L) 8.5 - 10.5 mg/dL [facility] Estimated GFR 53(L) >=60 [facility] Comment: The reported eGFR should be multiplied by 1.2 for patients. The MDRD is not an appropriate measure of renal function for patients with body mass extremes or in patients with acute kidney failure. [email or web address]/DHnkdep [email or web address]/DHMCnkf Blood specimen (specimen) 04/28/2017 4:26 AM EST 04/28/2017 4:50 AM EST Narrative Resulting Agency Comment Spec In Lab Mali Lakhani MD CHEMISTRY ORDERABLES [facility] [place] [address] * EKG 12 Lead (04/27/2017 3:45 PM EST) Ventricular rate 101 BPM MUSE SYSTEM Atrial Rate 101 BPM MUSE SYSTEM P-R Interval 164 ms MUSE SYSTEM QRS Duration 84 ms MUSE SYSTEM Q-T Interval 362 ms MUSE SYSTEM QTC Calculated (Bezet) 469 ms MUSE SYSTEM Calculated P [place] 36 degrees MUSE SYSTEM Calculated R [place] -8 degrees MUSE SYSTEM Calculated T [place] 47 degrees MUSE SYSTEM INTERPRETATION Sinus tachycardia Nonspecific T wave abnormality Abnormal ECG When compared with ECG of 02-NOV-2015 13:47, Nonspecific T wave abnormality, worse in Inferior leads QT has shortened Confirmed by MD LINTON JOHN ([id number]) on 04/28/2017 4:17:57 PM MUSE SYSTEM 04/27/2017 3:45 PM EST 04/28/2017 4:17 PM EST Mali Lakhani MD ECG ORDERABLES MUSE SYSTEM * XR Chest PA or AP 1 view (04/27/2017 3:32 PM EST) Anatomical Region Laterality Modality Chest N/A Digital Radiogra phy Impressions 04/27/2017 3:54 PM EST No pneumothorax or other interval change. I have personally reviewed the image(s) and the residents interpretation and agree with the findings, Thang Maldonado at 04/27/2017 3:54 PM Narrative 04/27/2017 3:54 PM EST EXAMINATION: XR CHEST PA OR AP 1 VIEW CLINICAL HISTORY: plueral tear during surery, now w increasing chest pain and SOB, please r/o ptx TECHNIQUE: Portable AP chest radiograph at 1525 COMPARISON: Chest radiograph obtained today at 0150 FINDINGS: No interval change. No pneumothorax. The lung volumes are low. No focal opacity or pleural effusion. The cardiomediastinal silhouette is unchanged. Procedure Note Thang Maldonado MD - 04/27/2017 EXAMINATION: XR CHEST PA OR AP 1 VIEW CLINICAL HISTORY: plueral tear during surery, now w increasing chest painand SOB, please r/o ptx TECHNIQUE: Portable AP chest radiograph at 1525 COMPARISON: Chest radiograph obtained today at 0150 FINDINGS: No interval change. No pneumothorax. The lung volumes are low.No focal opacity or pleural effusion. The cardiomediastinal silhouette is unchanged. IMPRESSION No pneumothorax or other interval change. I have personally reviewed the image(s) and the residents interpretationand agree with the findings, Thang Maldonado at 04/27/2017 3:54 PM Mali Lakhani MD IMG DX ORDERABLES * XR Chest PA or AP 1 view (04/27/2017 1:45 AM EST) Anatomical Region Laterality Modality Chest N/A Digital Radiogra phy Impressions 04/27/2017 2:05 AM EST No visible pneumothorax. Narrative 04/27/2017 2:05 AM EST EXAMINATION: XR CHEST PA OR AP 1 VIEW CLINICAL HISTORY: plueral injury intraoperatively, assess for pneumothorax, Post-op, to be performed in PACU TECHNIQUE: AP chest. COMPARISON: CT of the chest performed on April 11, 2017. FINDINGS: Interval bilateral mastectomy and breast reconstruction with tissue expanders noted bilaterally. No visible pneumothorax. No focal consolidation or pleural effusion. The cardiac silhouette is normal in size. Procedure Note Wesly Olivera MD - 04/27/2017 EXAMINATION: XR CHEST PA OR AP 1 VIEW CLINICAL HISTORY: plueral injury intraoperatively, assess forpneumothorax, Post-op, to be performed in PACU TECHNIQUE: AP chest. COMPARISON: CT of the chest performed on April 11, 2017. FINDINGS: Interval bilateral mastectomy and breast reconstruction with tissueexpanders noted bilaterally. No visible pneumothorax. No focal consolidation orpleural effusion. The cardiac silhouette is normal in size. IMPRESSION No visible pneumothorax. Mali Lakhani MD IMG DX ORDERABLES * Scan, Peripheral Blood (04/27/2017 1:00 AM EST) Plat Estimate Normal [facility] RBC Morphology Abnormal [facility] Seymour Cells 1-5 /HPF [facility] Blood specimen (specimen) 04/27/2017 1:00 AM EST 04/27/2017 1:20 AM EST Narrative Resulting Agency Comment Spec In Lab Kaveh Whiteside MD HEMATOLOGY O RDERABLES [facility] [place] [address] * (ABNORMAL) Differential, Automated (04/27/2017 1:00 AM EST) Neutrophils % 81.9 % [facility] Neutr Abs (ANC) 18.61(H) 1.70 - 6.10 x10(3)/[facility] LABORATORY Lymphocytes % 4.8 % [facility] Lymphocytes Abs 1.1 0.9 - 3.2 x10(3)/[facility] LAB[facility]ORY Monocytes % 12.3 % [facility] Monocyte Abs 2.8(H) 0.3 - 0.9 x10(3)/[facility] LAB[facility]ORY Eosinophils % 0.0 % [facility] Eosinophils Abs 0.0 0.0 - 0.4 x10(3)/[facility] Basophils % 0.2 % [facility] Basophils Abs 0.0 0.0 - 0.1 x10(3)/[facility] LABORATORY Immature Gran % 0.80 % [facility] Comment: Immature granulocytes(IG's)percentage and absolute count will include metamyelocytes, myelocytes, and promyelocytes. Blood smears from CBCs yielding IG's will be scanned manually for concordance. If this scan disagrees with the automated IG or if promyelocytes are noted, a manual differential will be performed. Nova Gran Abs 0.19(H) 0.00 - 0.04 x10(3)/ L [facility] Blood specimen (specimen) 04/27/2017 1:00 AM EST 04/27/2017 1:20 AM EST Narrative Resulting Agency Comment Spec In Lab Kaveh Whiteside MD [place] [address] * (ABNORMAL) Hemogram (04/27/2017 1:00 AM EST) WBC 22.7(H) 4.0 - 9.5 x10(3)/[facility] RBC 3.79(L) 4.00 - 5.21 x10(6)/[facility] Hemoglobin 12.0 11.7 - 15.5 gm/dL [facility] Hematocrit 36.3 35.7 - 45.8 % [facility] MCV 95.8(H) 82.6 - 94.4 [facility] MCH 31.7 27.1 - 32.0 pg [facility] MCHC 33.1 31.7 - 35.0 gm/dL [facility] Platelets 337 145 - 357 x10(3)/[facility] RDWSD 47.4(H) 37.0 - 46.0 [facility] RDWCV 13.4 11.5 - 14.1 % [facility] MPV 9.3 7.6 - 12.9 [facility] nRBC % Auto 0.0 % [facility] nRBC Abs Auto 0.000 0.000 - 0.000 x10(3)/[facility] Blood specimen (specimen) 04/27/2017 1:00 AM EST 04/27/2017 1:20 AM EST Narrative Resulting Agency Comment Spec In Lab Kaveh Whiteside MD HEMATOLOGY O RDERABLES Performing Organization Address City/[facility]/ZIP Co de Phone Number [facility] [place] [address] * (ABNORMAL) Phosphorus (04/27/2017 1:00 AM EST) Phosphorus 6.3(H) 2.5 - 4.5 mg/dL [facility] Blood specimen (specimen) 04/27/2017 1:00 AM EST 04/27/2017 1:20 AM EST Narrative Resulting Agency Comment Spec In Lab Mali Lakhani MD CHEMISTRY ORDERABLES Performing Organization Address City/[facility]/ZIP Co de Phone Number [facility] [place] [address] * (ABNORMAL) Magnesium (04/27/2017 1:00 AM EST) Magnesium 0.56(L) 0.69 - 1.07 mmol/L [facility] Blood specimen (specimen) 04/27/2017 1:00 AM EST 04/27/2017 1:20 AM EST Narrative Resulting Agency Comment Spec In Lab Mali Lakhani MD CHEMISTRY ORDERABLES Performing Organization Address [facility] Co de Phone Number [facility] [place] [address] * (ABNORMAL) Calcium (04/27/2017 1:00 AM EST) Calcium 7.2(L) 8.5 - 10.5 mg/dL [facility] Blood specimen (specimen) 04/27/2017 1:00 AM EST 04/27/2017 1:20 AM EST Narrative Resulting Agency Comment Spec In Lab Mali Lakhani MD CHEMISTRY ORDERABLES Performing Organization Address [facility] Co de Phone Number [facility] [place] [address] * (ABNORMAL) Creatinine (04/27/2017 1:00 AM EST) Creatinine 1.40(H) 0.70 - 1.20 mg/dL [facility] Estimated GFR 39(L) >=60 [facility] Comment: The reported eGFR should be multiplied by 1.2 for patients. The MDRD is not an appropriate measure of renal function for patients with body mass extremes or in patients with acute kidney failure. http://[employer]/DHnkdep http://[employer]/DHMCnkf Blood specimen (specimen) 04/27/2017 1:00 AM EST 04/27/2017 1:20 AM EST Narrative Resulting Agency Comment Spec In Lab Mali Lakhani MD CHEMISTRY ORDERABLES Performing Organization Address [facility] Co de Phone Number [facility] [place] [address] * (ABNORMAL) BUN (04/27/2017 1:00 AM EST) BUN 25(H) 8 - 18 mg/dL [facility] Blood specimen (specimen) 04/27/2017 1:00 AM EST 04/27/2017 1:20 AM EST Narrative Resulting Agency Comment Spec In Lab Mali Lakhani MD CHEMISTRY ORDERABLES Performing Organization Address [facility] de Phone Number [facility] [place] [address] * (ABNORMAL) Electrolytes panel (04/27/2017 1:00 AM EST) Sodium 140 135 - 145 mmol/L [facility] Potassium 3.4(L) 3.5 - 5.0 mmol/L [facility] Comment: Please note: ??Patients with WBC >100,000 may have falsely elevated Potassium levels. ??For accurate Potassium quantification in these patients send serum separator tube (gold top) for subsequent determinations. ??Contact the Clinical Chemistry Laboratory if there are any questions. Chloride 98 98 - 107 mmol/L [facility] CO2 18(L) 22 - 31 mmol/L [facility] Anion Gap 24(H) 5 - 15 mmol/L [facility] Blood specimen (specimen) 04/27/2017 1:00 AM EST 04/27/2017 1:20 AM EST Narrative Resulting Agency Comment Spec In Lab Mali Lakhani [place] [address] * Specimen to Pathology (04/26/2017 11:57 AM EST) AP Specimen 04/26/2017 11:5 7 AM EST 04/26/2017 12:34 PM EST Narrative [facility] - 04/26/2017 12:34 PM EST Specimen requisition ordered. ??Separate Pathology report to follow Resulting Agency Comment Spec In Lab Mali Lakhani MD PATHOLOGY/CYTOLOGY O RDERABLES Performing Organization Address City/[facility]/[place] [address] * Specimen to Pathology (04/26/2017 10:52 AM EST) AP Specimen 04/26/2017 10:5 2 AM EST 04/26/2017 12:34 PM EST Narrative [facility] - 04/26/2017 12:34 PM EST Specimen requisition ordered. ??Separate Pathology report to follow Resulting Agency Comment Spec In Lab Ria Menendez MD PATHOLOGY/CYTOLOGY ORDERABLES Performing Organization Address City/[facility]/[place] [address] * Specimen to Pathology (04/26/2017 10:52 AM EST) AP Specimen 04/26/2017 10:5 2 AM EST 04/26/2017 12:34 PM EST Narrative [facility] - 04/26/2017 12:34 PM EST Specimen requisition ordered. ??Separate Pathology report to follow Resulting Agency Comment Spec In Lab Ria Menendez MD PATHOLOGY/CYTOLOGY ORDERABLES [facility] [place] [address] * Surgical Pathology Report (04/26/2017 10:50 AM EST) Surgical Pathology Report [id number] ? Location: 3WST; [facility]; A The signing pathologist has (i) examined the relevant preparation(s) for the specimen(s) and (ii) rendered or confirmed the diagnosis(es). . ?Surgical Pathology DIAGNOSIS A - Left breast, nipple-sparing mastectomy: 1. 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 Atypical ductal hyperplasia 4. Intraductal papillomas, sclerosing papillary lesion, radial scar 5. Fibroadenomatous change/fibroadenoma (2.1 cm) 6. Fibrous nodule with dystrophic calcifications, cholesterol clefts, hemosiderin, and xanthogranulomatous inflammation (1.0 cm) 7. Florid usual ductal hyperplasia, apocrine metaplasia, and clustered cysts 8. Biopsy site changes B - Left axillary dissection: 1. Four of eighteen lymph nodes positive for metastatic carcinoma (4/18) 2. One of eighteen lymph nodes with isolated tumor cells 3. Biopsy site changes in one positive node C - Right breast, nipple-sparing mastectomy: Benign breast tissue with sclerosing papillary lesion, intraductal papilloma, florid usual ductal hyperplasia, adenosis, apocrine metaplasia, and cysts Synoptic Report Specimen ? Procedure: ??Total mastectomy ? Specimen Laterality: ?? Left Tumor ? Histologic Type: ?? Invasive ductal carcinoma ? Histologic Grade (James Histologic Score) ?Glandular (Acinar) / Tubular Differentiation: ?Score 3 ?Nuclear Pleomorphism: ?? Score 3 ?Number of Mitoses per 10 High-Power Garnica: ?14 mitotic figures ?Mitotic Rate: ?? Score 2 ?Overall Grade: ?? Grade 3 (scores of 8 or 9) ? Tumor Size: ?? 20 Millimeters (mm) ? Tumor Focality: ?? Single focus of invasive carcinoma ? Ductal Carcinoma In Situ (DCIS): ?DCIS is present in specimen ?Ductal Carcinoma In Situ (DCIS): ?? Negative for extensive intraductal ? component (EIC) ?Architectural Patterns: ?? Solid ?Nuclear Grade: ?? Grade III (high) ?Necrosis: ??Not identified ? Tumor Extent ?Skin: ??Invasive carcinoma does not invade into the dermis or epidermis ?Nipple DCIS: ??Not applicable ?Skeletal Muscle: ?? No skeletal muscle is present ? Accessory Findings ?Lymphovascular Invasion: ?? Not identified ?Microcalcifications: ?? Present in invasive carcinoma, Present in non- ?neoplastic tissue ?Treatment Effect: ?? No known presurgical therapy Margins ? Invasive Carcinoma Margins: ?? Uninvolved by invasive carcinoma ?Distance from Posterior Margin: ?? <1 Millimeters (mm) . DIAGNOSIS ?Distance from Other Specified Margin: ?Nipple margin > 10 Millimeters (mm) ? DCIS Margins: ?? Uninvolved by DCIS ?Distance of DCIS to Posterior Margin: ?2 Millimeters (mm) ?Distance from Other Specified Margin: ?Nipple margin > 10 Millimeters (mm) Lymph Nodes ? Number of Lymph Nodes with Macrometastases ( ??> 2 mm): ?? 3 ? Number of Lymph Nodes with Micrometastases ( ??> 0.2 mm to 2 mm and / or ??> 200 ?cells): ??1 ? Number of Lymph Nodes with Isolated Tumor Cells ( ??<= 0.2 mm and ??<= 200 cells): ? 1 ? Size of Largest Metastatic Deposit: ?7 Millimeters (mm) ? Extranodal Extension: ?? Present ? Number of Lymph Nodes Examined: ?18 Pathologic Stage Classification (pTNM, AJCC 8th Edition) ? Primary Tumor (Invasive Carcinoma) (pT): ?pT1c ? Regional Lymph Nodes (pN) ?Category (pN): ?? pN2a Tumor Block(s): ?? A15 2016 AJCC 8th Edition CAP Annual Release [place], [place], and HER2 testing (performed on prior biopsy, [id number]): ER: Positive ( >90%, strong) [place]: Positive ( >90%, strong) HER2 FISH: Negative Electronically signed by: ??Sally RENEE, Bill Avila Verified: ??05/02/2017 ?Pathologist Performed at: ??-[facility] Dept. of Pathology, [place], [place] CLINICAL INFORMATION Specimen Submitted: A - Left breast B - Left axillary dissection C - Right breast, short suture superior, single suture base of nipple Clinical History: Left breast cancer Clinical Diagnosis: Left breast cancer SPECIMEN PROCESSING A - ??Labeled/Fixative: Left breast, fresh Qty/Size/Weight: Single, 11.6 x 17.2 x 3.8 cm, 559 g. SPECIMEN DESCRIPTION Resection Specimen: Intact left-sided mastectomy, with skin attached, nipple-sparing. Orientation: Short stitch-superior, long stitch-lateral, single stitch-base of nipple. Skin: 19.6 x 3.0 cm, without lesion Nipple: Resection base is 5.6 x 3.6 cm, with no lesion. Deep Margin: Intact, with no muscle or tumor ?? . Multiple lesions are identified: LESION I Description: 1.0 cm mass, caputo-yellow, firm, well-circumscribed Location: 10 o 'clock, slice I, 3.0 cm from the skin. Clip: None. Margins: 0.9 cm to medial margin. LESION II Description: 0.2 cm mass, santamaria-yellow, firm, spiculated . SPECIMEN PROCESSING Location: 9 o 'clock, mid specimen, slice II. Clip: None. Margins: 1.6 cm to deep-black. LESION III Description: 0.4 cm mass, santamaria, firm, stellate Location: Mid specimen, 11 o ??'clock, slice III, 5.5 cm from the skin. Clip: None. Margins: 2.0 cm to superficial-blue, 2.1 cm to deep-black. LESION IV Description: 0.3 cm mass, santamaria, firm, spiculated Location: Mid specimen, slice IV, 12 o ??'clock, 4.0 cm from the skin. Clip: None. Margins: 1.6 cm to deep and black. LESION V Description: 2.0 cm mass, santamaria, firm, poorly circumscribed Location: Mid specimen, 6 o ??'clock, slice V-VII, inferior half of specimen, 5.5 cm from the skin. Clip: Slice VII, A14. Margins: Abutting the deep-black margin. LESION Description: 2.1 cm mass, santamaria, rubbery, irregular Location: 2 o 'clock from the nipple, upper outer quadrant, 5.5 cm from the skin, slice VII. Clip: None. Margins: Abutting the superficial-blue margin. OTHER Parenchyma: Yellow lobular adipose tissue. SECTIONS/PROCESSING: ?? (1-2) slice I, lesion I to medial margin; (3) slice II, normal parenchyma between lesion I and II; (4) slice II, lesion II to deep margin; (5) slice III, nearest superficial margin to lesion III; (6) slice III, lesion III; (7) slice III, nearest deep-black margin to lesion III; (8) slice III, insurance verification representative normal parenchyma, upper inner quadrant; (9) slice III, insurance verification representative normal parenchyma, lower inner quadrant; (10-11) slice IV, lesion IV to nearest deep-black margin; (12) slice V, lesion V to deep-black margin; (13) slice V, lesion V to deep- black margin; (14-15) slice , lesion V to closest deep-black margin, with clip in A14; (16-17) slice VII, lesion to nearest superficial-blue margin; (18) slice , insurance verification representative normal parenchyma, lower outer quadrant, with skin; (19) slice , insurance verification representative normal parenchyma, upper outer quadrant; (20) slice V, nipple base; (21) slice , insurance verification representative subareolar tissue ?? . (R21) Ischemic Time: 210 minutes B - ??Labeled/Fixative: Left axillary dissection, fresh. Quantity/Size: Multiple, 7.5 x 6.5 x 2.2 cm. Tissue Description: Yellow, lobular adipose tissue. Sectioning reveals multiple possible lymph nodes, the largest 2.0 cm. Sections/Processing: (1) three nodes; (2-4) candidate lymphoid tissue; (5) serially sectioned node; (6) serially sectioned node; (7) serially sectioned node; (8) 5 nodes; (9) bisected node; (10) serially sectioned node; (11) serially sectioned node; (12) serially sectioned node; (13) serially sectioned node; (14-15) serially sectioned node; (16) serially sectioned node, with round clip; (17-18) serially sectioned node; (19-20) serially sectioned node; (21-22) serially sectioned node; (23-25) serially sectioned node. (R25) C - ??Labeled/Fixative: Right breast-short suture superior, long suture lateral, single suture base of nipple, fresh Qty/Size/Weight: Single, 22.5 x 16.5 x 3.5 cm, 611 g. SPECIMEN DESCRIPTION Resection Specimen: Right side mastectomy, with skin attached, and nipple-sparing. . SPECIMEN PROCESSING Sectioning: Serially sectioned from medial to lateral into nine slices, of average width 2.5 cm. Orientation: Short suture superior, long suture lateral, single suture base of nipple. Skin: 18.7 x 3.6 cm, without lesion Nipple: The nipple resection base is 3.4 x 2.5 cm, without lesion. Deep Margin: Intact, without muscle, without lesion ?? . LESION Description: Multiple areas of ill-defined, firm fibrous tissue throughout the specimen. Clip: Not identified OTHER Parenchyma: Yellow fibroadipose tissue SECTIONS/PROCESSING: ?? (1-2) slices I, lesional areas closest to superficial margin; (3) slice I, nearest skin to lesional areas; (4) slice II, lesional area; (5) slice III, lesional area closest to superficial-blue margin; (6) slice III, lesional area to deep-black margin; (7) slice III, lesional area to superficial-blue margin; (8) slice IV, lesional area to superficial-blue margin; (9) slice IV, lesional area to posterior-black margin; (10) slice IV, lesional area to deep margin; (11-12) slice V, lesional area abutting the superficial-blue margin; (13) slice , lesional area abutting the [id number]-jqloi margin; (14) slice , lesional area abutting the superficial-blue margin; (15) slice VII, lesional area abutting the deep-black margin; (16) slice VII, lesional area abutting the superficial-blue margin; (17) slice VIII, lesional area to [id number]-[id number]-thgn margin; (18) slice IX, lesional area to lateral margin; (19) slice IV, nipple base; (20) slice , insurance verification representative skin . (R20) Ischemic Time: 170 minutes [facility] 04/26/2017 10:5 0 AM EST Ria Menendez MD PATHOLOGY/CYTOLOGY ORDERABLES [facility] [place] [address] documented in this encounter Visit Diagnoses Diagnosis Status post bilateral breast reconstruction Breast replaced by other means Status post bilateral breast reconstruction Breast replaced by other means documented in this encounter Administered Medications Inactive Administered Medications - up to 3 most recent administrations Medication Order MAR Action Action Date Dose Rate Site acetaminophen (TYLENOL) tablet 1,000 mg 1,000 mg, Oral, ONCE, 1 dose, On Sosa 04/26/17 at 0645, Maximum dose of acetaminophen is 4000 mg from all sources in 24 hours., Day of Surgery (Day of Procedure), Routine Given 04/26/2017 6:45 AM EST 1,000 mg acetaminophen (TYLENOL) tablet 650 mg 650 mg, Oral, EVERY 4 HOURS PRN, Starting on Sun04/27/17 at 0040, Until Sun04/27/17 at 2126, Pain, Maximum dose of acetaminophen is 4000 mg from all sources in 24 hours., Routine Given 04/27/2017 7:28 PM EST 650 mg Given 04/27/2017 12:48 PM EST 650 mg Given 04/27/2017 4:01 AM EST 650 mg acetaminophen (TYLENOL) tablet 650 mg 650 mg, Oral, EVERY 4 HOURS SCHEDULED, First dose (after last modification) on Sun04/27/17 at 2200, Until Discontinued, Maximum dose of acetaminophen is 4000 mg from all sources in 24 hours., Routine Given 05/01/2017 8:16 AM EDT 650 mg Given 05/01/2017 12:03 AM EDT 650 mg Given 04/30/2017 8:04 PM EDT 650 mg atorvastatin (LIPITOR) tablet 20 mg 20 mg, Oral, EVERY EVENING, First dose (after last reorder) on Sun04/27/17 at 1700, Until Discontinued, Routine Given 04/30/2017 5:24 PM EDT 20 mg Given 04/29/2017 3:07 PM EDT 20 mg Given 04/28/2017 5:02 PM EST 20 mg bisacodyl (DULCOLAX) suppository 10 mg 10 mg, Rectal, DAILY PRN, Starting on Sun04/27/17 at 0326, Until Sun05/01/17 at 1420, Constipation, Administer if needed per patient's routine or if no bowel movement within 48 hours to achieve: (1) One bowel movement at least every 48 hours, AND (2) Without straining. - If multiple PRN bowel medications ordered, start with magnesium hydroxide, then bisacodyl. - Multiple medications may be given concomitantly for constipation., Routine Given 05/01/2017 3:45 AM EDT 10 mg clindamycin (CLEOCIN) 900mg in dextrose 5% 50mL 900 mg, Intravenous, EVERY 8 HOURS, 2 doses, First dose on Sun04/27/17 at 0400, Last dose on Sun04/27/17 at 1200, Administer over 30 Minutes, Do not exceed 30 mg/minute. *Beta-lactam based antibiotics (eg. Ampicillin, Cefazolin, Aztreonam) should be administered within 4 hours of the preceding intraoperative dose. *Vancomycin, Flouroquinolones, Clindamycin, Gentamicin, and Metronidazole should be administered within 8 hours of the preceding intraoperative dose., Recovery (Recovery-Hospital Unit), Indication for (Active or Suspected): Prophylaxis New Bag 04/27/2017 12:14 PM EST 900 mg 100 mL /hr New Bag 04/27/2017 4:08 AM EST 900 mg 100 mL/hr dilTIAZem (DILTIAZEM CD) ER capsule 240 mg 240 mg, Oral, DAILY, First dose on Sun04/27/17 at 0900, Until Discontinued, DO NOT CRUSH OR OPEN, Routine Given 05/01/2017 8:17 AM EDT 240 mg Given 04/30/2017 8:03 AM EDT 240 mg Given 04/29/2017 8:13 AM EDT 240 mg docusate sodium (COLACE) capsule 100 mg 100 mg, Oral, 2 TIMES DAILY, First dose on Sun04/27/17 at 0900, Until Discontinued, Routine Given 05/01/2017 8:16 AM EDT 100 mg Given 04/30/2017 8:05 PM EDT 100 mg Given 04/30/2017 8:02 AM EDT 100 mg enoxaparin (LOVENOX) injection 40 mg 40 mg, Subcutaneous, NIGHTLY, First dose on Sun04/27/17 at 2100, Until Discontinued, Routine Given 04/30/2017 8:09 PM EDT 40 mg Given 04/29/2017 8:09 PM EDT 40 mg Given 04/28/2017 8:16 PM EST 40 mg fentaNYL (PF) 50 mcg/mL injection 1 dose, Starting on Sun04/30/17 at 1017, Until Sun04/30/17 at 1030, Shannan Galan: cabinet override fentaNYL 50 mcg/mL multi-dose injection 25-50 mcg, Intravenous, EVERY 5 MIN PRN, Starting on Sun04/30/17 at 0944, Until Sun04/30/17 at 1103, Pain, per unit protocol, - Start dose [...] and verbal order., Angio/IR (Intra-Procedure), Routine Given 04/30/2017 10:50 AM EDT 25 mcg Given 04/30/2017 10:45 AM EDT 25 mcg Given 04/30/2017 10:35 AM EDT 25 mcg ferrous gluconate tablet 324 mg 324 mg, Oral, DAILY, First dose on Sun04/27/17 at 0900, Until Discontinued Given 05/01/2017 8:16 AM EDT 324 mg Given 04/30/2017 8:03 AM EDT 324 mg Given 04/29/2017 8:15 AM EDT 324 mg FLUoxetine (PROzac) capsule 40 mg 40 mg, Oral, DAILY, First dose on Sun04/27/17 at 0900, Until Discontinued, Routine Given 05/01/2017 8:16 AM EDT 40 mg Given 04/30/2017 8:02 AM EDT 40 mg Given 04/29/2017 8:14 AM EDT 40 mg gabapentin (NEURONTIN) capsule 600 mg 600 mg, Oral, ONCE, 1 dose, On Sun04/26/17 at 0645, Day of Surgery (Day of Procedure), Routine Given 04/26/2017 6:45 AM EST 600 mg hydroCHLOROthiazide (HYDRODIURIL) tablet 12.5 mg 12.5 mg, Oral, DAILY, First dose on Sun04/27/17 at 1730, Until Discontinued, Routine Given 05/01/2017 8:16 AM EDT 12.5 mg Given 04/30/2017 8:04 AM EDT 12.5 mg Given 04/29/2017 8:13 AM EDT 12.5 mg HYDROmorphone (DILAUDID) injection 0.2-0.4 mg 0.2-0.4 mg, Intravenous, EVERY 5 MIN PRN, Starting on Sosa 04/26/17 at 2304, Until Sun04/27/17 at 0327, Pain, Give 0.2 mg every 5 minutes [...] for breakthrough pain., PACU Recovery, Routine Given 04/27/2017 2:06 AM EST 0.4 mg Given 04/27/2017 2:00 AM EST 0.2 mg HYDROmorphone (DILAUDID) injection 0.2-0.4 mg 0.2-0.4 mg, Intravenous, EVERY 2 HOURS PRN, Starting on Sun04/27/17 at 1513, Until Sun05/01/17 at 1420, Pain, for breakthrough pain not controlled with oral medication give 0.2mg for pain 1-5, give 0.4mg for pain 6-10., Routine Given 04/27/2017 12:29 AM EST 1 mg HYDROmorphone (DILAUDID) tablet 2 mg 2 mg, Oral, EVERY 4 HOURS PRN, Starting on Sun04/27/17 at 0804, Until Sun04/27/17 at 1514, Pain, Only for breakthrough pain that is not controlled in scheduled tylenol, and 10mg of oxycodone, Routine Given 04/27/2017 2:48 PM EST 2 mg Given 04/27/2017 8:17 AM EST 2 mg HYDROmorphone (DILAUDID) tablet 2 mg 2 mg, Oral, EVERY 4 HOURS PRN, Starting on Sun04/27/17 at 1514, Until Sun04/29/17 at 1034, Pain, for mild pain (1-3), May give an additional 2 mg once if pain not relieved in 30-60 minutes., Routine Given 04/27/2017 7:28 PM EST 2 mg HYDROmorphone (DILAUDID) tablet 2 mg 2 mg, Oral, ONCE, 1 dose, On Sun04/27/17 at 2145, Routine Given 04/27/2017 9:41 PM EST 2 mg HYDROmorphone (DILAUDID) tablet 4 mg 4 mg, Oral, EVERY 4 HOURS PRN, Starting on Sun04/27/17 at 1514, Until Sun04/29/17 at 1034, Pain, for moderate pain (4-6), May give an additional 2 mg once if pain not relieved in 30-60 minutes., Routine Given 04/28/2017 6:51 PM EST 4 mg Given 04/28/2017 2:55 PM EST 4 mg Given 04/28/2017 9:22 AM EST 4 mg HYDROmorphone (DILAUDID) tablet 6 mg 6 mg, Oral, EVERY 4 HOURS PRN, Starting on Sun04/27/17 at 1514, Until Sun04/29/17 at 1034, Pain, for severe pain (7-10), May give an additional 2 mg once if pain not relieved in 30-60 minutes., Routine Given 04/29/2017 5:02 AM EDT 6 mg Given 04/28/2017 10:57 PM EST 6 mg ibuprofen (ADVIL;MOTRIN) tablet 600 mg 600 mg, Oral, EVERY 6 HOURS PRN, Starting on Sun04/29/17 at 1156, Until Sun05/01/17 at 1420, Pain, Administer orally with milk or food to minimize GI irritation. Maximum dose of 3200 mg from all sources in 24 hours, Routine Given 05/01/2017 4:07 AM EDT 600 mg Given 04/30/2017 3:52 PM EDT 600 mg iohexol (OMNIPAQUE) 350 mg/mL solution 50 mL 50 mL, Other, ONCE PRN, 1 dose, Starting on 04/30/17 at 1105, Until 04/30/17 at 1106, Per Protocol, Warning Vesicant/Irritant Medication , Angio/IR (Intra-Procedure), Routine Given 04/30/2017 11:06 AM EDT 15 mLs labetalol (NORMODYNE,TRANDATE) injection 20 mg 20 mg, Intravenous, EVERY 4 HOURS PRN, Starting on 04/28/17 at 2054, Until Sun05/01/17 at 1420, High Blood Pressure, SBP > 160, hold for HR < 60, Routine lactated Ringers infusion 1,000 mL 1,000 mL, at 100 mL/hr, Intravenous, CONTINUOUS, Starting on Sosa 04/26/17 at 0645, Until Sun04/27/17 at 0327, Day of Surgery (Day of Procedure) New Bag 04/26/2017 6:45 AM EST 1,000 mLs 100 mL/hr Lactobacillus (BACID) tablet 1 tablet 1 tablet, Oral, DAILY, First dose on Sun04/27/17 at 0900, Until Discontinued, Routine Given 05/01/2017 8:16 AM EDT 1 tablet Given 04/30/2017 8:03 AM EDT 1 tablet Given 04/29/2017 8:14 AM EDT 1 tablet levothyroxine (SYNTHROID) tablet 112 mcg 112 mcg, Oral, DAILY, First dose on Sun04/27/17 at 0600, Until Discontinued, Routine Given 05/01/2017 5:41 AM EDT 112 mcg Given 04/30/2017 6:02 AM EDT 112 mcg Given 04/29/2017 5:04 AM EDT 112 mcg lidocaine (XYLOCAINE) 10 mg/mL (1 %) injection 10 mg 10 mg, Subcutaneous, ONCE, 1 dose, On Sun04/30/17 at 1000, For use in Interventional Radiology (IR) only for procedure with direct provider supervision and verbal order., Angio/IR (Intra-Procedure), Routine Given 04/30/2017 10:44 AM EDT 10 mg magnesium sulfate 2 g in sterile water 50 mL 2 g, Intravenous, ONCE, 1 dose, On Sun04/27/17 at 0330, Administer over 120 Minutes New Bag 04/27/2017 4:45 AM EST 2 g 25 mL/hr midazolam (PF) (VERSED) 1 mg/mL injection 1 dose, Starting on Sun04/30/17 at 1017, Until Sun04/30/17 at 1030, Shannan Galan: janice override midazolam (PF) (VERSED) 1 mg/mL multi-dose injection 0.5-1 mg 0.5-1 mg, Intravenous, EVERY 3 MIN PRN, Starting on Sun04/30/17 at 0944, Until Sun04/30/17 at 1103, Sleep, - Start dose; 1 mg (Reduce [...] and verbal order., Angio/IR (Intra-Procedure), Routine Given 04/30/2017 10:50 AM EDT 0.5 mg Given 04/30/2017 10:45 AM EDT 0.5 mg Given 04/30/2017 10:35 AM EDT 0.5 mg norethindrone (AYGESTIN) tablet 5 mg 5 mg, Oral, DAILY, First dose on Sun04/27/17 at 0900, Until Discontinued, Routine Given 04/27/2017 9:00 AM EST 5 mg ondansetron (ZOFRAN) injection 4 mg 4 mg, Intravenous, EVERY 8 HOURS PRN, Starting on Sun04/27/17 at 0038, Until Tu05/01/17 at 1420, Nausea, May repeat times one in 30 minutes if ineffective. If multiple antiemetics are ordered, use ondanstron first, Recovery (Recovery-Hospital Unit) Given 04/30/2017 8:31 AM EDT 4 mg ondansetron (ZOFRAN) tablet 4 mg 4 mg, Oral, EVERY 8 HOURS PRN, Starting on Sun04/27/17 at 0038, Until Tu05/01/17 at 1420, Nausea, Vomiting, If multiple antiemetics are ordered, use ondansetron first. PO Preferred. If patient unable to take PO, may give IV if ordered. May repeat times one in 45 minutes if ineffective., Recovery (Recovery-Hospital Unit), Routine Given 05/01/2017 9:45 AM EDT 4 mg Given 04/29/2017 9:34 AM EDT 4 mg oxyCODONE (ROXICODONE) immediate release tablet 10 mg 10 mg, Oral, EVERY 4 HOURS PRN, Starting on 04/29/17 at 1034, Until Sun05/01/17 at 1420, Pain, moderate pain (4-6), May give additional 5 mg in 30 minutes once if pain not relieved., Routine Given 05/01/2017 8:16 AM EDT 10 mg Given 05/01/2017 4:07 AM EDT 10 mg Given 05/01/2017 12:03 AM EDT 10 mg oxyCODONE (ROXICODONE) immediate release tablet 15 mg 15 mg, Oral, EVERY 4 HOURS PRN, Starting on 04/29/17 at 1034, Until Sun05/01/17 at 1420, Pain, severe pain or opiate tolerant patient (7-10), Do not start patient with 15 mg dose. Do not give 15 mg if patient is opiate niave., Routine oxyCODONE (ROXICODONE) immediate release tablet 5 mg 5 mg, Oral, EVERY 4 HOURS PRN, Starting on Sun04/29/17 at 1034, Until Sun05/01/17 at 1420, Pain, mild pain (1-3), May give additional 5 mg in 30 minutes once if pain not relieved., Routine oxyCODONE (ROXICODONE) immediate release tablet 5-10 mg 5-10 mg, Oral, EVERY 4 HOURS PRN, Starting on Sun04/27/17 at 0348, Until Sun04/27/17 at 1514, Pain, Pain less than 5, give 5 mg; for pain 5-10, give 10 mg, Routine Given 04/27/2017 12:48 PM EST 10 mg Given 04/27/2017 4:51 AM EST 5 mg polyethylene glycol (MIRALAX) packet 17 g 17 g, Oral, DAILY PRN, Starting on Sun04/27/17 at 0326, Until Sun05/01/17 at 1420, Constipation, Administer if no bowel movement within 48 hours to achieve: (1) One bowel movement at least every 48 hours, AND (2) without straining. If multiple PRN bowel medications ordered, start with polyethylene glycol, then lactulose, then oral bisacodyl, then bisacodyl suppository, then magnesium citrate, then tap water enema. Multiple medications may be given concomitantly for constipation., Routine Given 04/30/2017 12:08 PM EDT 17 g potassium chloride (K-DUR/KLOR-CON) extended release tablet 20 mEq 20 mEq, Oral, 2 TIMES DAILY, First dose on 04/28/17 at 1000, Until Discontinued, 20 mEq tablet may be dissolved in water for administration, Routine Given 05/01/2017 8:16 AM EDT 20 mEq Given 04/30/2017 8:05 PM EDT 20 mEq Given 04/30/2017 8:03 AM EDT 20 mEq potassium phosphate (monobasic) (K-PHOS) tablet 1,000 mg 1,000 mg, Oral, ONCE, 1 dose, On Sun04/27/17 at 0700, Dissolve tablets in 6-8 oz of water; for best results, soak tablets in water for 2-5 minutes, then stir and give to patient., Routine Given 04/27/2017 8:59 AM EST 1,000 mg silver sulfADIAZINE (SILVADENE) 1 % cream Topical (Top), 2 TIMES DAILY, First dose on 04/30/17 at 1445, Until Discontinued, Apply to silvadene BID to umbilicus Given 05/01/2017 8:18 AM EDT Given 04/30/2017 8:11 PM EDT Given 04/30/2017 3:31 PM EDT sodium chloride 0.9 % flush 5 mL 5 mL, Intravenous, 2 TIMES DAILY, First dose on Sun04/27/17 at 0100, Until Discontinued, Recovery (Recovery-Hospital Unit), Routine Given 05/01/2017 8:18 AM EDT 5 mLs Given 04/30/2017 8:10 PM EDT 5 mLs Given 04/30/2017 8:05 AM EDT 5 mLs sodium chloride 0.9% infusion 1,000 mL, at 100 mL/hr, Intravenous, CONTINUOUS, Starting on Sun04/27/17 at 0100, Until 04/28/17 at 0659, Recovery (Recovery-Hospital Unit) New Bag 04/27/2017 1:05 AM EST 1,000 mLs 100 mL/hr valsartan (DIOVAN) tablet 160 mg 160 mg, Oral, DAILY, First dose on Sun04/27/17 at 1730, Until Discontinued, Routine Given 05/01/2017 8:16 AM EDT 160 mg Given 04/30/2017 8:02 AM EDT 160 mg Given 04/29/2017 8:15 AM EDT 160 mg documented in this encounter Active and Recently Administered Medications Due to Daylight Saving Time, this section may contain times in both EST and EDT. Scheduled Medication Order 04/29/2017 04/30/2017 05/01/2017 acetaminophen (TYLENOL) tablet 650 mg 650 mg, Oral, EVERY 4 HOURS SCHEDULED, First dose (after last modification) on Sun04/27/17 at 2200, Until Discontinued, Maximum dose of acetaminophen is 4000 mg from all sources in 24 hours., Routine 0501 (Given - Provider: Karley Easton RN)0814 (Given - Provider: Carrie Mann RN)1159 (Given - Provider: Carrie Mann RN)1507 (Given - Provider: Carrie Mann RN)2006 (Given - Provider: Karley Easton RN)2319 (Given - Provider: Karley Easton RN) 0339 (Given - Provider: Karley Easton RN)0801 (Given - Provider: Christy Tang RN)1208 (Given - Provider: Christy Tang RN)1531 (Given - Provider: Christy Tang RN)2003 (Given - Provider: Karley Easton RN) 0003 (Given - Provider: Karley Easton RN)0400 (Not Given - Provider: Karley Easton RN - Reason: Patient/family refused)0816 (Given - Provider: Senia Meeks RN)1200 (Due) atorvastatin (LIPITOR) tablet 20 mg 20 mg, Oral, EVERY EVENING, First dose (after last reorder) on Sun04/27/17 at 1700, Until Discontinued, Routine 1507 (Given - Provider: Carrie Mann RN) 1724 (Given - Provider: Christy Tang RN) dilTIAZem (DILTIAZEM CD) ER capsule 240 mg 240 mg, Oral, DAILY, First dose on Sun04/27/17 at 0900, Until Discontinued, DO NOT CRUSH OR OPEN, Routine 0813 (Given - Provider: Carrie Mann RN) 0803 (Given - Provider: Christy Tang RN) 0817 (Given - Provider: Senia Meeks RN) docusate sodium (COLACE) capsule 100 mg 100 mg, Oral, 2 TIMES DAILY, First dose on Sun04/27/17 at 0900, Until Discontinued, Routine 0813 (Given - Provider: Carrie Mann RN)2007 (Given - Provider: Karley Easton RN) 0802 (Given - Provider: Christy Tang RN)2004 (Given - Provider: Karley Easton RN) 0816 (Given - Provider: Senia Meeks RN) enoxaparin (LOVENOX) injection 40 mg 40 mg, Subcutaneous, NIGHTLY, First dose on Sun04/27/17 at 2100, Until Discontinued, Routine 2008 (Given - Provider: Karley Easton RN) 2008 (Given - Provider: Karley Easton RN) ferrous gluconate tablet 324 mg 324 mg, Oral, DAILY, First dose on Sun04/27/17 at 0900, Until Discontinued 0815 (Given - Provider: Carrie Mann RN) 0803 (Given - Provider: Christy Tang RN) 0816 (Given - Provider: Senia Meeks RN) FLUoxetine (PROzac) capsule 40 mg 40 mg, Oral, DAILY, First dose on Sun04/27/17 at 0900, Until Discontinued, Routine 0814 (Given - Provider: Carrie Mann RN) 0802 (Given - Provider: Christy Tang RN) 0816 (Given - Provider: Senia Meeks RN) hydroCHLOROthiazide (HYDRODIURIL) tablet 12.5 mg 12.5 mg, Oral, DAILY, First dose on Sun04/27/17 at 1730, Until Discontinued, Routine 0813 (Given - Provider: Carrie Mann RN) 0804 (Given - Provider: Christy Tang RN) 0816 (Given - Provider: Senia Meeks RN) Lactobacillus (BACID) tablet 1 tablet 1 tablet, Oral, DAILY, First dose on Sun04/27/17 at 0900, Until Discontinued, Routine 0814 (Given - Provider: Carrie Mann RN) 0803 (Given - Provider: Christy Tang RN) 0816 (Given - Provider: Senia Meeks RN) levothyroxine (SYNTHROID) tablet 112 mcg 112 mcg, Oral, DAILY, First dose on Sun04/27/17 at 0600, Until Discontinued, Routine 0504 (Given - Provider: Karley Easton RN) 0602 (Given - Provider: Karley Easton RN) 0541 (Given - Provider: Karley Easton RN) lidocaine (XYLOCAINE) 10 mg/mL (1 %) injection 10 mg (COMPLETED) 10 mg, Subcutaneous, ONCE, 1 dose, On Sun04/30/17 at 1000, For use in Interventional Radiology (IR) only for procedure with direct provider supervision and verbal order., Angio/IR (Intra-Procedure), Routine 1044 (Given - Provider: Mali Crowley MD) norethindrone (AYGESTIN) tablet 5 mg 5 mg, Oral, DAILY, First dose on Sun04/27/17 at 0900, Until Discontinued, Routine 0815 (Not Given - Provider: Carrie Mann RN - Reason: Patient/family refused) 0809 (Not Given - Provider: Christy Tang RN - Reason: Patient/family refused) 0900 (Not Given - Provider: Senia Meeks RN - Reason: Patient/family refused) potassium chloride (K-DUR/KLOR-CON) extended release tablet 20 mEq 20 mEq, Oral, 2 TIMES DAILY, First dose on Sun04/28/17 at 1000, Until Discontinued, 20 mEq tablet may be dissolved in water for administration, Routine 08 (Given - Provider: Carrie Mann RN)2007 (Given - Provider: Karley Easton RN) 802 (Given - Provider: Christy Tang RN)2004 (Given - Provider: Karley Easton RN) 0816 (Given - Provider: Senia Meeks RN) silver sulfADIAZINE (SILVADENE) 1 % cream Topical (Top), 2 TIMES DAILY, First dose on Sun04/30/17 at 1445, Until Discontinued, Apply to silvadene BID to umbilicus 1531 (Given - Provider: Christy Tang RN)2010 (Given - Provider: Karley Easton RN) 0818 (Given - Provider: Senia Meeks RN) sodium chloride 0.9 % flush 5 mL 5 mL, Intravenous, 2 TIMES DAILY, First dose on Sun04/27/17 at 0100, Until Discontinued, Recovery (Recovery-Hospital Unit), Routine 0824 (Given - Provider: Carrie Mann RN)2009 (Given - Provider: Karley Easton RN) 08 (Given - Provider: Christy Tang RN)2009 (Given - Provider: Karley Easton RN) 0818 (Given - Provider: Senia Meeks RN) valsartan (DIOVAN) tablet 160 mg 160 mg, Oral, DAILY, First dose on Sun04/27/17 at 1730, Until Discontinued, Routine 0815 (Given - Provider: Carrie Mann RN) 0802 (Given - Provider: Christy Tang, JENNYFER) 0816 (Given - Provider: Senia Meeks RN) PRN Medication Order 04/29/2017 04/30/2017 05/01/2017 bisacodyl (DULCOLAX) suppository 10 mg 10 mg, Rectal, DAILY PRN, Starting on Sun04/27/17 at 0326, Until Sun05/01/17 at 1420, Constipation, Administer if needed per patient's routine or if no bowel movement within 48 hours to achieve: (1) One bowel movement at least every 48 hours, AND (2) Without straining. - If multiple PRN bowel medications ordered, start with magnesium hydroxide, then bisacodyl. - Multiple medications may be given concomitantly for constipation., Routine 0345 (Given - Provider: Karley Easton RN) fentaNYL 50 mcg/mL multi-dose injection (CANCELED) 25-50 mcg, Intravenous, EVERY 5 MIN PRN, Starting on Sun04/30/17 at 0944, Until Sun04/30/17 at 1103, Pain, per unit protocol, - Start dose [...] supervision and verbal order., Angio/IR (Intra-Procedure), Routine 1030 (Given - Provider: Shannan Galan RN)1035 (Given - Provider: Shannan Galan RN)1045 (Given - Provider: Shannan Galan RN)1050 (Given - Provider: Shannan Galan, JENNYFER) HYDROmorphone (DILAUDID) injection 0.2-0.4 mg 0.2-0.4 mg, Intravenous, EVERY 2 HOURS PRN, Starting on Sun04/27/17 at 1513, Until Sun05/01/17 at 1420, Pain, for breakthrough pain not controlled with oral medication give 0.2mg for pain 1-5, give 0.4mg for pain 6-10., Routine HYDROmorphone (DILAUDID) tablet 6 mg (CANCELED)(Linked Group 1) 6 mg, Oral, EVERY 4 HOURS PRN, Starting on Sun04/27/17 at 1514, Until Sun04/29/17 at 1034, Pain, for severe pain (7-10), May give an additional 2 mg once if pain not relieved in 30-60 minutes., Routine 0502 (Given - Provider: Karley Easton, JENNYFER) ibuprofen (ADVIL;MOTRIN) tablet 600 mg 600 mg, Oral, EVERY 6 HOURS PRN, Starting on Sun04/29/17 at 1156, Until Sun05/01/17 at 1420, Pain, Administer orally with milk or food to minimize GI irritation. Maximum dose of 3200 mg from all sources in 24 hours, Routine 1552 (Given - Provider: Christy Tang, JENNYFER) 0407 (Given - Provider: Karley Easton, JENNYFER) iohexol (OMNIPAQUE) 350 mg/mL solution 50 mL (COMPLETED) 50 mL, Other, ONCE PRN, 1 dose, Starting on 04/30/17 at 1105, Until Sun04/30/17 at 1106, Per Protocol, Warning Vesicant/Irritant Medication , Angio/IR (Intra-Procedure), Routine 1106 (Given - Provider: Keon Bunn) labetalol (NORMODYNE,TRANDATE) injection 20 mg 20 mg, Intravenous, EVERY 4 HOURS PRN, Starting on 04/28/17 at 2054, Until Sun05/01/17 at 1420, High Blood Pressure, SBP > 160, hold for HR < 60, Routine lidocaine (XYLOCAINE) 10 mg/mL (1 %) injection 3 mg 3 mg (0.3 mL), Subcutaneous, ONCE PRN, 1 dose, Starting on Sun04/27/17 at 0038, Until Sun05/01/17 at 1420, for discomfort with PIV insertion, Recovery (Recovery-Hospital Unit), Routine midazolam (PF) (VERSED) 1 mg/mL multi-dose injection 0.5-1 mg (CANCELED) 0.5-1 mg, Intravenous, EVERY 3 MIN PRN, Starting on Sun04/30/17 at 0944, Until Sun04/30/17 at 1103, Sleep, - Start dose; 1 mg (Reduce [...] supervision and verbal order., Angio/IR (Intra-Procedure), Routine 1030 (Given - Provider: Shannan Galan, RN)1035 (Given - Provider: Shannan Galan, RN)1045 (Given - Provider: Shannan Galan, RN)1050 (Given - Provider: Shannan Galan, JENNYFER) ondansetron (ZOFRAN) injection 4 mg(Linked Group 2) 4 mg, Intravenous, EVERY 8 HOURS PRN, Starting on Sun04/27/17 at 0038, Until Sun05/01/17 at 1420, Nausea, May repeat times one in 30 minutes if ineffective. If multiple antiemetics are ordered, use ondanstron first, Recovery (Recovery-Hospital Unit) 0934 (See Alternative - Provider: Carrie Mann RN) 0831 (Given - Provider: Christy Tang, JENNYFER) 0945 (See Alternative - Provider: Senia Meeks RN) ondansetron (ZOFRAN) tablet 4 mg(Linked Group 2) 4 mg, Oral, EVERY 8 HOURS PRN, Starting on Sun04/27/17 at 0038, Until Sun05/01/17 at 1420, Nausea, Vomiting, If multiple antiemetics are ordered, use ondansetron first. PO Preferred. If patient unable to take PO, may give IV if ordered. May repeat times one in 45 minutes if ineffective., Recovery (Recovery-Hospital Unit), Routine 0934 (Given - Provider: Carrie Mann RN) 0831 (See Alternative - Provider: Christy Tang, JENNYFER) 0945 (Given - Provider: Senia Meeks RN) oxyCODONE (ROXICODONE) immediate release tablet 10 mg(Linked Group 3) 10 mg, Oral, EVERY 4 HOURS PRN, Starting on 04/29/17 at 1034, Until Tu05/01/17 at 1420, Pain, moderate pain (4-6), May give additional 5 mg in 30 minutes once if pain not relieved., Routine 1044 (Given - Provider: Carrie Mann RN)1507 (Given - Provider: Carrie Mann RN)1852 (Given - Provider: Carrie Mann RN)2319 (Given - Provider: Karley Easton RN) 0340 (Given - Provider: Karley Easton RN)0802 (Given - Provider: Christy Tang RN)140 (Given - Provider: Christy Tang RN)183 (Given - Provider: Christy Tang, JENNYFER) 0003 (Given - Provider: Karley Easton RN)0407 (Given - Provider: Karley Easton RN)0816 (Given - Provider: Senia Meeks RN) oxyCODONE (ROXICODONE) immediate release tablet 15 mg(Linked Group 3) 15 mg, Oral, EVERY 4 HOURS PRN, Starting on 04/29/17 at 1034, Until 05/01/17 at 1420, Pain, severe pain or opiate tolerant patient (7-10), Do not start patient with 15 mg dose. Do not give 15 mg if patient is opiate niave., Routine 1044 (See Alternative - Provider: Carrie Mann RN)1507 (See Alternative - Provider: Carrie Mann RN)1852 (See Alternative - Provider: Carrie Mann RN)2319 (See Alternative - Provider: Karley Easton RN) 0340 (See Alternative - Provider: Karley Easton RN)0802 (See Alternative - Provider: Christy Tang RN)1401 (See Alternative - Provider: Christy Tang RN)1831 (See Alternative - Provider: Christy Tang RN) 0003 (See Alternative - Provider: Karley Easton RN)0407 (See Alternative - Provider: Karley Easton RN)0816 (See Alternative - Provider: Senia Meeks, JENNYFER) oxyCODONE (ROXICODONE) immediate release tablet 5 mg(Linked Group 3) 5 mg, Oral, EVERY 4 HOURS PRN, Starting on Sun04/29/17 at 1034, Until Sun05/01/17 at 1420, Pain, mild pain (1-3), May give additional 5 mg in 30 minutes once if pain not relieved., Routine 1044 (See Alternative - Provider: Carrie Mann RN)1507 (See Alternative - Provider: Carrie Mann RN)1852 (See Alternative - Provider: Carrie Mann RN)2319 (See Alternative - Provider: Karley Easton RN) 0340 (See Alternative - Provider: Karley Easton RN)0802 (See Alternative - Provider: Christy Tang RN)1401 (See Alternative - Provider: Christy Tang RN)1831 (See Alternative - Provider: Christy Tang RN) 0003 (See Alternative - Provider: Karley Easton RN)0407 (See Alternative - Provider: Karley Easton RN)0816 (See Alternative - Provider: Senia Meeks RN) polyethylene glycol (MIRALAX) packet 17 g 17 g, Oral, DAILY PRN, Starting on Sun04/27/17 at 0326, Until Sun05/01/17 at 1420, Constipation, Administer if no bowel movement within 48 hours to achieve: (1) One bowel movement at least every 48 hours, AND (2) without straining. If multiple PRN bowel medications ordered, start with polyethylene glycol, then lactulose, then oral bisacodyl, then bisacodyl suppository, then magnesium citrate, then tap water enema. Multiple medications may be given concomitantly for constipation., Routine 1208 (Given - Provider: Christy Tang RN) sodium chloride 0.9 % flush 5-20 mL 5-20 mL, Intravenous, EVERY 1 MIN PRN, Starting on Sun04/27/17 at 0038, Until Sun05/01/17 at 1420, flush, Flush pertains to all indwelling lines. Flush per protocol found in the job aid using the link provided on this medication record., Recovery (Recovery-Hospital Unit), Routine Linked Groups Order Group 1: HYDROmorphone (DILAUDID) tablet 2 mg (CANCELED) 2 mg, Oral, EVERY 4 HOURS PRN, Starting on Sun04/27/17 at 1514, Until 04/29/17 at 1034, Pain, for mild pain (1-3), May give an additional 2 mg once if pain not relieved in 30-60 minutes., Routine Or HYDROmorphone (DILAUDID) tablet 4 mg (CANCELED) 4 mg, Oral, EVERY 4 HOURS PRN, Starting on Sun04/27/17 at 1514, Until 04/29/17 at 1034, Pain, for moderate pain (4-6), May give an additional 2 mg once if pain not relieved in 30-60 minutes., Routine Or HYDROmorphone (DILAUDID) tablet 6 mg (CANCELED)Jump to med 6 mg, Oral, EVERY 4 HOURS PRN, Starting on Sun04/27/17 at 1514, Until 04/29/17 at 1034, Pain, for severe pain (7-10), May give an additional 2 mg once if pain not relieved in 30-60 minutes., Routine Group 2: ondansetron (ZOFRAN) tablet 4 mgJump to med 4 mg, Oral, EVERY 8 HOURS PRN, Starting on Sun04/27/17 at 0038, Until 05/01/17 at 1420, Nausea, Vomiting, If multiple antiemetics are ordered, use ondansetron first. PO Preferred. If patient unable to take PO, may give IV if ordered. May repeat times one in 45 minutes if ineffective., Recovery (Recovery-Hospital Unit), Routine Or ondansetron (ZOFRAN) injection 4 mgJump to med 4 mg, Intravenous, EVERY 8 HOURS PRN, Starting on Sun04/27/17 at 0038, Until 05/01/17 at 1420, Nausea, May repeat times one in 30 minutes if ineffective. If multiple antiemetics are ordered, use ondanstron first, Recovery (Recovery- Hospital Unit) Group 3: oxyCODONE (ROXICODONE) immediate release tablet 5 mgJump to med 5 mg, Oral, EVERY 4 HOURS PRN, Starting on 04/29/17 at 1034, Until 05/01/17 at 1420, Pain, mild pain (1-3), May give additional 5 mg in 30 minutes once if pain not relieved., Routine Or oxyCODONE (ROXICODONE) immediate release tablet 10 mgJump to med 10 mg, Oral, EVERY 4 HOURS PRN, Starting on 04/29/17 at 1034, Until 05/01/17 at 1420, Pain, moderate pain (4-6), May give additional 5 mg in 30 minutes once if pain not relieved., Routine Or oxyCODONE (ROXICODONE) immediate release tablet 15 mgJump to med 15 mg, Oral, EVERY 4 HOURS PRN, Starting on 04/29/17 at 1034, Until 05/01/17 at 1420, Pain, severe pain or opiate tolerant patient (7-10), Do not start patient with 15 mg dose. Do not give 15 mg if patient is opiate niave., Routine documented in this encounter Care Teams Animal Care Specialist Relationship Specialty Start Date End Date Trinh Coates MD [facility] [address] [place] [address] PCP - General 01/11/10 documented as of this encounter
--- OUTSIDE RECORDS SUMMARY | 2023-09-07 11:34 | XMS_ITS | Encounter Summary ---
Author Organization [facility] [place] [address] Care Team Providers Care Glass Tube Bender Name Role Phone Trinh Coates MD Primary Care Provider [phone] Reason for Referral * Diagnostic Test (Routine) - Closed Specialty Diagnoses / Procedures Referred By Diamante marin Referred To Contact Radiology Diagnoses Malignant neoplasm of female breast, unspecified estrogen receptor status, unspecified laterality, unspecified site of breast Procedures MRI Abdomen wwo Contrast (Generic) Jolie Menendez MD [facility] [place] [address] [place] [address] Referral ID Status Reason Start Date Expiration Date V isits Requested Visits Authorized [id number] Closed Specialty Service Requested 04/13/2017 05/28/2017 1 1 Encounter Details Date Type Department Care Team (Late st Contact Info) Description 04/13/2017 Orders Only [place] [address] Jolie Menendez MD [facility] [place] [place] [address] Malignant neoplasm of female breast, [...] 01/22/2024 10:30 AM EST Appointment Mammography/[place] [address] Ladi Mendosa MD [facility] HEMATOLOGY/[place] [address] 01/30/2024 11:30 AM EST Office Visit Dermatology at [address] [place] [address] Nilda Luis MD [facility] DR [address] [place] [address] 02/15/2024 9:30 AM EST [place] [address] [place] [address] documented as of this encounter Results * MRI Abdomen wwo Contrast (Generic) (04/18/2017 4:23 PM EST) Anatomical Region Laterality Modality Abdomen Magnetic Resonan ce Impressions 04/18/2017 5:10 PM EST 1. Hepatic and renal cysts. No liver masses concerning for metastases. 2. Pancreas divisum. 3. Cholelithiasis. I have personally reviewed the image(s) and the residents interpretation and agree with the findings, Bri Howard at 04/18/2017 5:10 PM Narrative 04/18/2017 5:10 PM EST EXAMINATION: MRI ABDOMEN WWO CONTRAST (GENERIC) CLINICAL HISTORY: ct with likely cyst, rule out metastatic breast cancer TECHNIQUE: MRI of the abdomen was performed with images obtained prior to and following intravenous administration of 16ml of Dotarem using the dynamic liver protocol. COMPARISONS: CT performed on April 11, 2017. FINDINGS: Liver: The liver is normal in size and signal. There are 4 lobulated T2 hyperintense, T1 hypointense subcentimeter nonenhancing lesion in the right hepatic lobe. These are consistent with benign cysts. There is at least one additional similar lesion in the right hepatic lobe which is punctate and also likely represents a cyst. No additional liver masses are identified. Portal Vein: Widely Patent. Bile ducts: Nondilated. Gallbladder: There are a few tiny gallstones. ??No wall thickening or adjacent inflammation. Spleen: Normal size, no lesions. Pancreas: Normal pancreatic parenchyma. There is pancreas divisum. Adrenals: Normal. Kidneys: There are multiple bilateral simple renal cysts. The largest on the right measures 1.9 cm and the largest on the left measures 1.1 cm. The left kidney again has a small extrarenal pelvis. Aorta: No aneurysm. Lymph nodes: No enlarged lymph nodes. Bowel: Nondilated, no inflammatory changes. Marrow Signal: No suspicious lesions. Procedure Note Bri Howard MD - 04/18/2017 EXAMINATION: MRI ABDOMEN WWO CONTRAST (GENERIC) CLINICAL HISTORY: ct with likely cyst, rule out metastatic breast cancer TECHNIQUE: MRI of the abdomen was performed with images obtained prior toand following intravenous administration of 16ml of Dotarem using the dynamicliver protocol. COMPARISONS: CT performed on April 11, 2017. FINDINGS: Liver: The liver is normal in size and signal. There are 4 lobulated T2 hyperintense, T1 hypointense subcentimeter nonenhancing lesion in theright hepatic lobe. These are consistent with benign cysts. There is at leastone additional similar lesion in the right hepatic lobe which is punctate andalso likely represents a cyst. No additional liver masses are identified. Portal Vein: Widely Patent. Bile ducts: Nondilated. Gallbladder: There are a few tiny gallstones. No wall thickening oradjacent inflammation. Spleen: Normal size, no lesions. Pancreas: Normal pancreatic parenchyma. There is pancreas divisum. Adrenals: Normal. Kidneys: There are multiple bilateral simple renal cysts. The largest onthe right measures 1.9 cm and the largest on the left measures 1.1 cm. Theleft kidney again has a small extrarenal pelvis. Aorta: No aneurysm. Lymph nodes: No enlarged lymph nodes. Bowel: Nondilated, no inflammatory changes. Marrow Signal: No suspicious lesions. IMPRESSION 1. Hepatic and renal cysts. No liver masses concerning for metastases. 2. Pancreas divisum. 3. Cholelithiasis. I have personally reviewed the image(s) and the residents interpretationand agree with the findings, Bri Howard at 04/18/2017 5:10 PM Jolie Menendez MD [facility] MRI ORDERABLES documented in this encounter Visit Diagnoses Diagnosis Malignant neoplasm of female breast, unspecified estrogen receptor status, unspecified laterality, unspecified site of breast Malignant neoplasm of female breast, unspecified estrogen receptor status, unspecified laterality, unspecified site of breast documented in this encounter Care Teams Glass Tube Bender Relationship Specialty Start Date End Date Trinh Coates MD [address] [place] [address] PCP - General 01/11/10 documented as of this encounter
--- OUTSIDE RECORDS SUMMARY | 2023-09-07 11:34 | XMS_ITS | Encounter Summary ---
Author Organization [facility] [address] Care Team Providers Care Ict Systems Test Engineer Name Role Phone Trinh Coates MD Primary Care Provider [phone] Reason for Referral * Diagnostic Test (Routine) - Closed Specialty Diagnoses / Procedures Referred By Diamante marin Referred To Contact Radiology Diagnoses Status post bilateral breast reconstruction Procedures IR Drain Check/Change/Remove Andre Crowley MD [facility] [place] [address] [place] [address] Referral ID Status Reason Start Date Expiration Date V isits Requested Visits Authorized [id number] Closed Specialty Service Requested 04/30/2017 04/30/2018 1 1 Encounter Details Date Type Department Care Team (Late st Contact Info) Description 04/30/2017 Orders Only [place] [address] Andre Crowley MD [facility] [place] [address] Status post bilateral breast reconstruction Social History Tobacco Use Types [...] 01/22/2024 10:30 AM EST Appointment Mammography/DXA at [place] [id number] Ladi Mendosa MD [facility] DR HEMATOLOGY/[place] [address] 01/30/2024 11:30 AM EST Office Visit Dermatology at [place] [address] [phone] Nilda Luis MD [facility] DR L[address] [place] [address] 02/15/2024 9:30 AM EST Appointment [place] [phone] [place] [address] documented as of this encounter Results * [...] ??complicated by intraoperative demise followed by Tissue Territory Account Executive placement. Patient had a RIGHT breast insitu [...] injection fills a space surrounding the tissue animal hospital office supervisor. The drain was flushed and re-connected to [...] injection fills a space surrounding the tissue animal hospital office supervisor. The drain was flushed and re-connected to suction bulb. 2. ??Left axillary drain check: no significant cavity observed on either drain injection or US evaluation. 3. ??Over the wire removal of the left axillary drain as above. Attending: ?Rashaad Paulson MD ? I was present during the intraservice time as documented by the IR Nurse. Andre Crowley MD [facility] [place] ORDERABLES documented in this encounter Visit Diagnoses Diagnosis Status post bilateral breast reconstruction Breast replaced by other means documented in this encounter Care Teams Ict Systems Test Engineer Relationship Specialty Start Date End Date Trinh Coates MD [facility] [address] [place] [address] PCP - General 01/11/10 documented as of this encounter
--- OUTSIDE RECORDS SUMMARY | 2023-09-07 11:34 | XMS_ITS | Encounter Summary ---
Author Organization [facility] [place] [address] Care Team Providers Care Mechanical Oxidizer Name Role Phone Trinh Coates MD Primary Care Provider [phone] Reason for Referral * Diagnostic Test (Routine) - Closed Specialty Diagnoses / Procedures Referred By Contac t Referred To Contact Radiology Diagnoses Malignant neoplasm of female breast, unspecified estrogen receptor status, unspecified laterality, unspecified site of breast Procedures MRI Abdomen wwo Contrast (Generic) Jolie Menendez MD [facility] [place] [address] [place] [address] Referral ID Status Reason Start Date Expiration Date V isits Requested Visits Authorized [id number] Closed Specialty Service Requested 04/13/2017 05/28/2017 1 1 Reason for Visit * Diagnostic Test (Routine) - Closed Specialty Diagnoses / Procedures Referred By Contac t Referred To Contact Radiology Diagnoses Malignant neoplasm of female breast, unspecified estrogen receptor status, unspecified laterality, unspecified site of breast Procedures MRI Abdomen wwo Contrast (Generic) Jolie Menendez MD [facility] [place] [address] [place] [address] Referral ID Status Reason Start Date Expiration Date V isits Requested Visits Authorized [id number] Closed Specialty Service Requested 04/13/2017 05/28/2017 1 1 Encounter Details Date Type Department Care Team (Latest Contact Info) Description 04/18/2017 3:28 PM EST - 04/18/2017 11:59 PM EST [place] [address] Jolie Menendez MD [facility] [place] [address] Malignant neoplasm of female breast, unspecified estrogen [...] 01/22/2024 10:30 AM EST Appointment M[place]ography[place] [address] Ladi Mendosa MD [facility] [place]EMATOLOGY/[place] [address] 01/30/2024 11:30 AM EST Office Visit Dermatology at [facility] [address] [place] [address] Nilda Luis MD [facility] [address] [address] 02/15/2024 9:30 AM [place] [phone] [place] [address] documented as of this encounter Procedures Procedure Name Priority Date/Time Associated Diagnosis Comments MRI ABDOMEN WWO CONTRAST Routine 04/18/2017 4:23 PM EST Malignant neoplasm of female breast, unspecified estrogen receptor status, unspecified laterality, unspecified site of breast documented in this encounter Results * MRI Abdomen wwo [...] MAR Action Action Date Dose Rate Site gadoterate meglumine (DOTAREM) 0.5 mmol/mL injection 0-20 mL/kg 0-20 mL/kg/dose, Intravenous, ONCE PRN, 1 dose, Starting on Sun04/18/17 at 1555, Until Sun04/18/17 at 1700, Per Protocol, Radiology Contrast, Routine Given 04/18/2017 5:00 PM EST 16 mLs documented in this encounter Care Teams Mechanical Oxidizer Relationship Specialty Start Date End Date Trinh Coates MD [address] [place] [address] PCP - General 01/11/10 documented as of this encounter
--- OUTSIDE RECORDS SUMMARY | 2023-09-07 11:34 | XMS_ITS | Encounter Summary ---
Author Organization [facility] [place] [address] Care Team Providers Care Marketing Professor Name Role Phone Trinh Coates MD Primary Care Provider [phone] Reason for Referral * Diagnostic Test (Routine) - Specialty Diagnoses / Procedures [facility] Referred To Contact Radiology Diagnoses Malignant neoplasm of upper-outer quadrant of left breast in female, estrogen receptor positive Procedures CT Angiogram Abdomen & Pelvis CT Angiogram Abdomen Andre Gimenez MD [facility] [place] [address] [facility] [place] [address] Referral ID Status Reason Start Date Expiration Date Visits Requested Visits Authorized [id number] Specialty Service Requested 04/05/2017 05/19/2017 1 1 * Diagnostic Test (Routine) - Closed Specialty Diagnoses / Procedures [facility] Referred To Contact Radiology Diagnoses Malignant neoplasm of left female breast, unspecified estrogen receptor status, unspecified site of breast Procedures CT Chest Abdomen Pelvis w Contrast (Generic) Jolie Menendez MD [facility] [place] [address] [facility] [place] [address] Referral ID Status Reason Start Date Expiration Date V isits Requested Visits Authorized [id number] Closed Specialty Service Requested 04/04/2017 05/19/2017 3 3 Reason for Visit * Diagnostic Test (Routine) - Closed Specialty Diagnoses / Procedures Referred By Contac t Referred To Contact Radiology Diagnoses Malignant neoplasm of left female breast, unspecified estrogen receptor status, unspecified site of breast Procedures CT Chest Abdomen Pelvis w Contrast (Generic) Jolie Menendez MD [facility] [place] [address] [facility] [place] [address] Referral ID Status Reason Start Date Expiration Date V isits Requested Visits Authorized [id number] Closed Specialty Service Requested 04/04/2017 05/19/2017 3 3 Encounter Details Date Type Department Care Team (Latest Contact Info) Description 04/11/2017 11:09 AM EST - 04/11/2017 1:27 PM EST Hospital [place] [id number] Andre Gimenez MD [facility] [place] [address] Malignant neoplasm of left female breast, unspecified estrogen receptor status, unspecified site of breast; Malignant neoplasm of upper-outer quadrant of left [...] 01/22/2024 10:30 AM EST Appointment Mammography/[place] [address] Ladi Mendosa MD [facility] HEMATOLOGY/[place] [address] 01/30/2024 11:30 AM EST Office Visit Dermatology at [address] [place] [id number] Nilda Luis MD [facility] [place] [address] 02/15/2024 9:30 AM [place] [address] [place] [address] documented as of this encounter Procedures Procedure Name Priority Date/Time Associated Diagnosis Comments CT CHEST ABDOMEN PELVIS W CONTRAST (GENERIC) Routine 04/11/2017 11:45 AM EST Malignant neoplasm of left female breast, unspecified estrogen receptor status, unspecified site of breast CT ABDOMEN AND PELVIS ANGIOGRAPHY Routine 04/11/2017 11:45 AM EST Malignant neoplasm of upper-outer quadrant of left breast in female, estrogen receptor positive documented in this encounter Results * CT Angiogram Abdomen & Pelvis (04/11/2017 11:45 AM EST) Anatomical Region Laterality Modality Abdomen, Pelvis Computed Tomogra phy Impressions 04/11/2017 1:33 PM EST SALVADOR arterial branch anatomy as described in the body the report. Left breast mass is associated with asymmetric albeit small enhancing left axillary lymph nodes. Mammographic correlation suggested. Subcentimeter and tiny hypodense liver lesions cannot be further characterized on the study, I suspect these represent tiny cysts. Definitive evaluation however would require MRI. Nonobstructing cholelithiasis. Renal cortical cysts. Small scar noted along the deep surface of the anterior perimbilical abdominal wall. Narrative 04/11/2017 1:33 PM EST EXAMINATION: CT ANGIOGRAM ABDOMEN AND PELVIS, CT CHEST ABDOMEN PELVIS W CONTRAST (GENERIC) CLINICAL HISTORY: Prior to SALVADOR flap to assess for deep epigastic perforators off abdominal wall and rectus sheath TECHNIQUE: Helical CT angiogram of the abdomen and pelvis was performed following intravenous administration of 64cc of Visipaque 320. MPRs were performed. Multiplanar images were reviewed and 3-D images were generated on an independent workstation. COMPARISON: None FINDINGS: VASCULAR FINDINGS Abdominal aorta: Normal caliber. No aneurysm. No mural calcification. Celiac: Widely patent. SMA: Widely patent. Right renal artery: Widely patent. Left renal artery: Dual, widely patent MEKA: Widely patent. Right: Common iliac artery: Widely patent. External iliac artery: Widely patent. Internal iliac artery: Widely patent. Common femoral artery: Widely patent. Superficial femoral artery: The visualized aspects are widely patent. Profundus femoral artery: The visualized aspects are widely patent. Left: Common iliac artery: Widely patent. External iliac artery: Widely patent. Internal iliac artery: Widely patent. Common femoral artery: Widely patent. Superficial femoral artery: The visualized aspects are widely patent. Profundus femoral artery: The visualized aspects are widely patent. Inferior epigastric artery origins are widely patent and smooth-walled bilaterally. Right: The right inferior epigastric artery pierces the rectus musculature 0.4 cm caudal and 6.6 cm to the right of the umbilicus. A single diminutive branch (#1) breeches the fascia 0.9 cm cranial and 6.8 cm to the right of the umbilicus. This subcutaneous branch courses then caudally in the abdominal wall. A very long intramuscular component of this artery courses cranially with its terminal branch (#2) breeching the fascia 7.9 cm cranial and 7.7 cm to the right of the umbilicus. Left: The left inferior epigastric artery pierces the rectus musculature 3.7 cm caudal and 4.3 cm to the left of the umbilicus. This artery bifurcates within the rectus musculature. The medial branch largely velazco out in its intramuscular component with a tiny branch (#3) without durable parents site. Signa fascia 4.5 cm cranial and 2.5 cm to the left of the umbilicus. The lateral branch (#4) pierces the fascia coursing laterally in the subcutaneous tissues, 4.3 cm cranial and 6.9 cm to the left of the umbilicus. NON-VASCULAR FINDINGS: Chest: Lungs and large airways: No pulmonary nodules. Left lower lobe atelectasis. Pleura: Trace left pleural effusion. Heart/vasculature: Normal caliber. No pericardial effusion. No central pulmonary emboli. Lymph nodes/Mediastinum/Alba: No enlarged hilar, mediastinal nor internal mamillary lymph nodes. Scattered enhancing left axillary lymph nodes. 1.8 cm lobulated left inferior lateral breast mass containing focal calcification associated with asymmetric triangular soft tissue in the lateral left breast and an asymmetric peripherally calcified nodule in the medial left breast. Abdomen/Pelvis: Liver: Subcentimeter hypodense central right liver lobe lesion accompanies additional tiny hypodense liver lesions which are too small to further characterize. Bile ducts: Nondilated. Gallbladder: Nonobstructing cholelithiasis Pancreas: Normal attenuation without ductal dilatation. Spleen: Normal. Kidneys: Bilateral hypodense renal cortical lesions the largest of which correspond to simple cysts though the remainder are too small to further characterize I suspect that these also are simple cysts. Nonobstructing subcentimeter nephrolithiasis left interpolar and right lower pole calyces. Adrenals: Normal. Lymph Nodes: ??No enlarged retroperitoneal, deep pelvic nor mesenteric lymph nodes Bowel: Nondilated, no wall thickening. ?? Peritoneum and mesentery: No ascites, free air, or loculated fluid collection. No mesenteric inflammation. Abdominal wall: Small scarring noted along the deep surface of the anterior umbilicus abdominal wall. Urinary Bladder: Normal. Reproductive organs: Normal contours Osseous structures: No suspicious lesions. Procedure Note Arabella Monsalve MD - 04/11/2017 EXAMINATION: CT ANGIOGRAM ABDOMEN AND PELVIS, CT CHEST ABDOMEN PELVIS WCONTRAST (GENERIC) CLINICAL HISTORY: Prior to SALVADOR flap to assess for deep epigasticperforators off abdominal wall and rectus sheath TECHNIQUE: Helical CT angiogram of the abdomen and pelvis was performed following intravenous administration of 64cc of Visipaque 320. MPRs were performed. Multiplanar images were reviewed and 3-D images were generatedon an independent workstation. COMPARISON: None FINDINGS: VASCULAR FINDINGS Abdominal aorta: Normal caliber. No aneurysm. No mural calcification. Celiac: Widely patent. SMA: Widely patent. Right renal artery: Widely patent. Left renal artery: Dual, widely patent MEKA: Widely patent. Right: Common iliac artery: Widely patent. External iliac artery: Widely patent. Internal iliac artery: Widely patent. Common femoral artery: Widely patent. Superficial femoral artery: The visualized aspects are widely patent. Profundus femoral artery: The visualized aspects are widely patent. Left: Common iliac artery: Widely patent. External iliac artery: Widely patent. Internal iliac artery: Widely patent. Common femoral artery: Widely patent. Superficial femoral artery: The visualized aspects are widely patent. Profundus femoral artery: The visualized aspects are widely patent. Inferior epigastric artery origins are widely patent and smooth-walled bilaterally. Right: The right inferior epigastric artery pierces the rectus musculature 0.4cm caudal and 6.6 cm to the right of the umbilicus. A single diminutive branch (#1) breeches the fascia 0.9 cm cranial and 6.8cm to the right of the umbilicus. This subcutaneous branch courses then caudallyin the abdominal wall. A very long intramuscular component of this artery courses cranially withits terminal branch (#2) breeching the fascia 7.9 cm cranial and 7.7 cm to theright of the umbilicus. Left: The left inferior epigastric artery pierces the rectus musculature 3.7 cmcaudal and 4.3 cm to the left of the umbilicus. This artery bifurcates within the rectus musculature. The medial branch largely velazco out in its intramuscular component with atiny branch (#3) without durable parents site. Signa fascia 4.5 cm cranial and2.5 cm to the left of the umbilicus. The lateral branch (#4) pierces the fascia coursing laterally in the subcutaneous tissues, 4.3 cm cranial and 6.9 cm to the left of theumbilicus. NON-VASCULAR FINDINGS: Chest: Lungs and large airways: No pulmonary nodules. Left lower lobeatelectasis. Pleura: Trace left pleural effusion. Heart/vasculature: Normal caliber. No pericardial effusion. No centralpulmonary emboli. Lymph nodes/Mediastinum/Alba: No enlarged hilar, mediastinal norinternal mamillary lymph nodes. Scattered enhancing left axillary lymph nodes. 1.8 cm lobulated left inferior lateral breast mass containing focal calcification associated with asymmetric triangular soft tissue in thelateral left breast and an asymmetric peripherally calcified nodule in the medialleft breast. Abdomen/Pelvis: Liver: Subcentimeter hypodense central right liver lobe lesionaccompanies additional tiny hypodense liver lesions which are too small to further characterize. Bile ducts: Nondilated. Gallbladder: Nonobstructing cholelithiasis Pancreas: Normal attenuation without ductal dilatation. Spleen: Normal. Kidneys: Bilateral hypodense renal cortical lesions the largest of which correspond to simple cysts though the remainder are too small to further characterize I suspect that these also are simple cysts. Nonobstructing subcentimeter nephrolithiasis left interpolar and right lower polecalyces. Adrenals: Normal. Lymph Nodes: No enlarged retroperitoneal, deep pelvic nor mesentericlymph nodes Bowel: Nondilated, no wall thickening. Peritoneum and mesentery: No ascites, free air, or loculated fluidcollection. No mesenteric inflammation. Abdominal wall: Small scarring noted along the deep surface of theanterior umbilicus abdominal wall. Urinary Bladder: Normal. Reproductive organs: Normal contours Osseous structures: No suspicious lesions. IMPRESSION SALVADOR arterial branch anatomy as described in the body the report. Left breast mass is associated with asymmetric albeit small enhancingleft axillary lymph nodes. Mammographic correlation suggested. Subcentimeter and tiny hypodense liver lesions cannot be furthercharacterized on the study, I suspect these represent tiny cysts. Definitiveevaluation however would require MRI. Nonobstructing cholelithiasis. Renal cortical cysts. Small scar noted along the deep surface of the anterior perimbilicalabdominal wall. Andre Gimenez MD [facility] CT ORDERABLES * CT Chest Abdomen Pelvis w Contrast (Generic) (04/11/2017 11:45 AM EST) Anatomical Region Laterality Modality Abdomen, Pelvis Computed Tomogra phy Impressions 04/11/2017 1:33 PM EST SALVADOR arterial branch anatomy as described in the body the report. Left breast mass is associated with asymmetric albeit small enhancing left axillary lymph nodes. Mammographic correlation suggested. Subcentimeter and tiny hypodense liver lesions cannot be further characterized on the study, I suspect these represent tiny cysts. Definitive evaluation however would require MRI. Nonobstructing cholelithiasis. Renal cortical cysts. Small scar noted along the deep surface of the anterior perimbilical abdominal wall. Narrative 04/11/2017 1:33 PM EST EXAMINATION: CT ANGIOGRAM ABDOMEN AND PELVIS, CT CHEST ABDOMEN PELVIS W CONTRAST (GENERIC) CLINICAL HISTORY: Prior to SALVADOR flap to assess for deep epigastic perforators off abdominal wall and rectus sheath TECHNIQUE: Helical CT angiogram of the abdomen and pelvis was performed following intravenous administration of 64cc of Visipaque 320. MPRs were performed. Multiplanar images were reviewed and 3-D images were generated on an independent workstation. COMPARISON: None FINDINGS: VASCULAR FINDINGS Abdominal aorta: Normal caliber. No aneurysm. No mural calcification. Celiac: Widely patent. SMA: Widely patent. Right renal artery: Widely patent. Left renal artery: Dual, widely patent MEAK: Widely patent. Right: Common iliac artery: Widely patent. External iliac artery: Widely patent. Internal iliac artery: Widely patent. Common femoral artery: Widely patent. Superficial femoral artery: The visualized aspects are widely patent. Profundus femoral artery: The visualized aspects are widely patent. Left: Common iliac artery: Widely patent. External iliac artery: Widely patent. Internal iliac artery: Widely patent. Common femoral artery: Widely patent. Superficial femoral artery: The visualized aspects are widely patent. Profundus femoral artery: The visualized aspects are widely patent. Inferior epigastric artery origins are widely patent and smooth-walled bilaterally. Right: The right inferior epigastric artery pierces the rectus musculature 0.4 cm caudal and 6.6 cm to the right of the umbilicus. A single diminutive branch (#1) breeches the fascia 0.9 cm cranial and 6.8 cm to the right of the umbilicus. This subcutaneous branch courses then caudally in the abdominal wall. A very long intramuscular component of this artery courses cranially with its terminal branch (#2) breeching the fascia 7.9 cm cranial and 7.7 cm to the right of the umbilicus. Left: The left inferior epigastric artery pierces the rectus musculature 3.7 cm caudal and 4.3 cm to the left of the umbilicus. This artery bifurcates within the rectus musculature. The medial branch largely velazco out in its intramuscular component with a tiny branch (#3) without durable parents site. Signa fascia 4.5 cm cranial and 2.5 cm to the left of the umbilicus. The lateral branch (#4) pierces the fascia coursing laterally in the subcutaneous tissues, 4.3 cm cranial and 6.9 cm to the left of the umbilicus. NON-VASCULAR FINDINGS: Chest: Lungs and large airways: No pulmonary nodules. Left lower lobe atelectasis. Pleura: Trace left pleural effusion. Heart/vasculature: Normal caliber. No pericardial effusion. No central pulmonary emboli. Lymph nodes/Mediastinum/Alba: No enlarged hilar, mediastinal nor internal mamillary lymph nodes. Scattered enhancing left axillary lymph nodes. 1.8 cm lobulated left inferior lateral breast mass containing focal calcification associated with asymmetric triangular soft tissue in the lateral left breast and an asymmetric peripherally calcified nodule in the medial left breast. Abdomen/Pelvis: Liver: Subcentimeter hypodense central right liver lobe lesion accompanies additional tiny hypodense liver lesions which are too small to further characterize. Bile ducts: Nondilated. Gallbladder: Nonobstructing cholelithiasis Pancreas: Normal attenuation without ductal dilatation. Spleen: Normal. Kidneys: Bilateral hypodense renal cortical lesions the largest of which correspond to simple cysts though the remainder are too small to further characterize I suspect that these also are simple cysts. Nonobstructing subcentimeter nephrolithiasis left interpolar and right lower pole calyces. Adrenals: Normal. Lymph Nodes: ??No enlarged retroperitoneal, deep pelvic nor mesenteric lymph nodes Bowel: Nondilated, no wall thickening. ?? Peritoneum and mesentery: No ascites, free air, or loculated fluid collection. No mesenteric inflammation. Abdominal wall: Small scarring noted along the deep surface of the anterior umbilicus abdominal wall. Urinary Bladder: Normal. Reproductive organs: Normal contours Osseous structures: No suspicious lesions. Procedure Note Arabella Monsalve MD - 04/11/2017 EXAMINATION: CT ANGIOGRAM ABDOMEN AND PELVIS, CT CHEST ABDOMEN PELVIS WCONTRAST (GENERIC) CLINICAL HISTORY: Prior to SALVADOR flap to assess for deep epigasticperforators off abdominal wall and rectus sheath TECHNIQUE: Helical CT angiogram of the abdomen and pelvis was performed following intravenous administration of 64cc of Visipaque 320. MPRs were performed. Multiplanar images were reviewed and 3-D images were generatedon an independent workstation. COMPARISON: None FINDINGS: VASCULAR FINDINGS Abdominal aorta: Normal caliber. No aneurysm. No mural calcification. Celiac: Widely patent. SMA: Widely patent. Right renal artery: Widely patent. Left renal artery: Dual, widely patent MEKA: Widely patent. Right: Common iliac artery: Widely patent. External iliac artery: Widely patent. Internal iliac artery: Widely patent. Common femoral artery: Widely patent. Superficial femoral artery: The visualized aspects are widely patent. Profundus femoral artery: The visualized aspects are widely patent. Left: Common iliac artery: Widely patent. External iliac artery: Widely patent. Internal iliac artery: Widely patent. Common femoral artery: Widely patent. Superficial femoral artery: The visualized aspects are widely patent. Profundus femoral artery: The visualized aspects are widely patent. Inferior epigastric artery origins are widely patent and smooth-walled bilaterally. Right: The right inferior epigastric artery pierces the rectus musculature 0.4cm caudal and 6.6 cm to the right of the umbilicus. A single diminutive branch (#1) breeches the fascia 0.9 cm cranial and 6.8cm to the right of the umbilicus. This subcutaneous branch courses then caudallyin the abdominal wall. A very long intramuscular component of this artery courses cranially withits terminal branch (#2) breeching the fascia 7.9 cm cranial and 7.7 cm to theright of the umbilicus. Left: The left inferior epigastric artery pierces the rectus musculature 3.7 cmcaudal and 4.3 cm to the left of the umbilicus. This artery bifurcates within the rectus musculature. The medial branch largely velazco out in its intramuscular component with atiny branch (#3) without durable parents site. Signa fascia 4.5 cm cranial and2.5 cm to the left of the umbilicus. The lateral branch (#4) pierces the fascia coursing laterally in the subcutaneous tissues, 4.3 cm cranial and 6.9 cm to the left of theumbilicus. NON-VASCULAR FINDINGS: Chest: Lungs and large airways: No pulmonary nodules. Left lower lobeatelectasis. Pleura: Trace left pleural effusion. Heart/vasculature: Normal caliber. No pericardial effusion. No centralpulmonary emboli. Lymph nodes/Mediastinum/Alba: No enlarged hilar, mediastinal norinternal mamillary lymph nodes. Scattered enhancing left axillary lymph nodes. 1.8 cm lobulated left inferior lateral breast mass containing focal calcification associated with asymmetric triangular soft tissue in thelateral left breast and an asymmetric peripherally calcified nodule in the medialleft breast. Abdomen/Pelvis: Liver: Subcentimeter hypodense central right liver lobe lesionaccompanies additional tiny hypodense liver lesions which are too small to further characterize. Bile ducts: Nondilated. Gallbladder: Nonobstructing cholelithiasis Pancreas: Normal attenuation without ductal dilatation. Spleen: Normal. Kidneys: Bilateral hypodense renal cortical lesions the largest of which correspond to simple cysts though the remainder are too small to further characterize I suspect that these also are simple cysts. Nonobstructing subcentimeter nephrolithiasis left interpolar and right lower polecalyces. Adrenals: Normal. Lymph Nodes: No enlarged retroperitoneal, deep pelvic nor mesentericlymph nodes Bowel: Nondilated, no wall thickening. Peritoneum and mesentery: No ascites, free air, or loculated fluidcollection. No mesenteric inflammation. Abdominal wall: Small scarring noted along the deep surface of theanterior umbilicus abdominal wall. Urinary Bladder: Normal. Reproductive organs: Normal contours Osseous structures: No suspicious lesions. IMPRESSION SALVADOR arterial branch anatomy as described in the body the report. Left breast mass is associated with asymmetric albeit small enhancingleft axillary lymph nodes. Mammographic correlation suggested. Subcentimeter and tiny hypodense liver lesions cannot be furthercharacterized on the study, I suspect these represent tiny cysts. Definitiveevaluation however would require MRI. Nonobstructing cholelithiasis. Renal cortical cysts. Small scar noted along the deep surface of the anterior perimbilicalabdominal wall. Jolie Menendez MD IMG CT ORDERABLES documented in this encounter Visit Diagnoses Diagnosis Malignant neoplasm of left female breast, unspecified estrogen receptor status, unspecified site of breast Malignant neoplasm of upper-outer quadrant of left breast in female, estrogen receptor positive documented in this encounter Administered Medications Inactive Administered Medications - up to 3 most recent administrations Medication Order MAR Action Action Date Dose Rate Site iodixanol (VISIPAQUE) 320 mg iodine/mL injection 0-200 mL 0-200 mL, Intravenous, ONCE PRN, 1 dose, Starting on Sun04/11/17 at 1257, Until Sun04/11/17 at 1257, Per Protocol, Radiology Contrast, Routine Given 04/11/2017 12:57 PM EST 64 mLs documented in this encounter Care Teams Marketing Professor Relationship Specialty Start Date End Date Trinh Coates MD [facility] [address] [place] [address] PCP - General 01/11/10 documented as of this encounter
--- OUTSIDE RECORDS SUMMARY | 2023-09-07 11:34 | XMS_ITS | Encounter Summary ---
Author Organization [facility] [place] [address] Care Team Providers Care Maintenance Repairman Name Role Phone Trinh Coates MD Primary Care Provider Reason for Visit * Auth/Cert Specialty Diagnoses / Procedures Referred By Diamante marin Referred To Contact Diagnoses Left breast cancer Procedures PRO BREAST RECONSTRUC W FREE FLAP @BREAST RECONSTRUCTION W/ FREE FLAP, SUSAN (WRVU 42.58) Referral ID Status Reason Start Date Expiration Date Visits Re quested Visits Authorized [id number] 1 1 Encounter Details Date Type Department Care Team (Late st Contact Info) Description 04/26/2017 7:30 AM EST - 04/26/2017 3:58 PM EST Surgery [place] [address] Mali Lakhani MD [facility] [place] [address] @BREAST RECONSTRUCTION W/ FREE FLAP, SUSAN (WRVU 42.58) Social History Tobacco Use Types Packs/Day Years [...] : 51 y.o. 1965 Language, race, ethnicity: Guinean, White, Not nor Date of Admission: 04/26/2017 [...] BREAST RECONSTRUCTION, IMMEDIATE OR DELAYED, W/ TISSUE CLERICAL INVESTIGATOR, INCLUDING SUBSEQUENT EXPANSION (WRVU 18.5) FTSG, FREE, DIR CLOSE DONOR SITE, TRUNK, 20 SQ CM OR LESS (WRVU 9.15) 04/26/2017 - 04/27/2017 History of Presentation: 51yo F pt with history of Er/PA+, HEr2- right breast CA. Per office note [...] 1 surgery, but her last surgeries at [facility] went very smoothly with anesthesia. She currently [...] Hospital Course: Patient was admitted electively to [facility] via the same day surgery program and [...] LARYNGEAL performed by Valentina Lucas MD at [facility] MAIN OR ??? PRO BREAST RECONSTRUC W FREE FLAP Bilateral 04/26/2017 @BREAST RECONSTRUCTION W/ FREE FLAP, SUSAN (WRVU 42.58) [facility] ??? PRO BREAST RECONSTRUC W TISS EXPANDR Bilateral 04/26/2017 BREAST RECONSTRUCTION, IMMEDIATE OR DELAYED, W/ TISSUE CLERICAL INVESTIGATOR, INCLUDING SUBSEQUENT EXPANSION (WRVU 18.5) performed by Mali Lakhani MD at [facility] OR ??? PRO EXPLORE PARATHYROID GLANDS N/A 11/02/2015 PARATHYROIDECTOMY OR EXPLORATION OF PARATHYROID(S) performed by Valentina Lucas MD at [facility] OR ? ? PRO FULL THICK GRFT TRUNK <20 SQCM Bilateral 04/26/2017 FTSG, FREE, DIR CLOSE DONOR SITE, TRUNK, 20 SQ CM OR LESS (WRVU 9.15) performed by Mali Lakhani MD at [facility] OR ??? PRO MASTECTOMY, SIMPLE, COMPLETE Bilateral 04/26/2017 MASTECTOMY, SIMPLE, COMPLETE-SUSAN (WRVU 15.85) performed by Ria Menendez MD at [facility] OR ??? PRO PARTIAL REMOVAL OF RIB Bilateral 04/26/2017 EXCISION OF RIB, PARTIAL (WRVU 7.26) performed by Mali Lakhani MD at [facility] MAIN OR ??? PRO REMOVE ARMPITS LYMPH NODES COMPLT Left 04/26/2017 LYMPHADENECTOMY, AXILLARY, COMPLETE (WRVU 13.87) performed by Ria Menendez MD at [facility] MAIN OR ??? PRO THYMECTOMY, TRANSCERVICAL N/A 11/02/2015 THYMECTOMY, TRANSCERVICAL APPROACH performed by Valenitna Lucas MD at [facility] MAIN OR ??? SHOULDER SURGERY [...] BREAST RECONSTRUCTION, IMMEDIATE OR DELAYED, W/ TISSUE CLERICAL INVESTIGATOR, INCLUDING SUBSEQUENT EXPANSION (WRVU 18.5) FTSG, FREE, [...] Your medications were sent electronically to the [facility] pharmacy The healing process after breast reconstruction [...] and only as needed. ??? Take an ghqs-kmi-xhccjmp stool softener, such as Colace while taking [...] about scheduling, please contact our administrative officesat [phone] For clinical questions, please call our nurses at [phone] Both offices are open Sunday thru Sunday 8a - 5p. With emergencies after hours, call the hospital vertical roll operator at [phone] and ask for the Plastic Surgery Resident supervisor epoxy fabrication. Narcotics: You may be given a prescription [...] called in to our prescription line at [phone]. Narcotic renewals may be requested from 8am-4pm [...] arrival. Post-Op Plan: - Follow up with PLANNING COORDINATOR/nurse - A nurse from clinic will call [...] [facility]b Surg [facility] 05/14/2017 2:00 PM [facility] IR ROOM 3 IR [facility] 05/14/2017 3:30 PM Gustavo Mota MD Leb Hem Onc [facility] 05/21/2017 8:[address] [facility] [place] [facility] 05/21/2017 9:00 AM Emily Choi MD [facility] [place] [facility] General Instructions INTERVENTIONAL RADIOLOGY DRAIN CARE [...] is during regular office hours, please call [phone]. If it is after regular office hours, or on weekends or holidays, please call [phone] and ask to speak to the Compliance Tester supervisor epoxy fabrication for Interventional Radiology. Revised 03/05/15 Drainage Record NAME: Date of Surgery: Date: Time: If more than one drain, which one: Drainage Amount (per drain) Total Amount (per drain; in 24 hours) Future Appointments and Orders Future Appointments Provider Department Dept Phone 05/07/2017 10:00 AM Romy Abarca PT Physical Therapy at [place] [phone] 05/14/2017 9:00 AM NURSE, PLASTIC SURGERY Plastic Surgery [facility] [place] [phone] 05/14/2017 10:00 AM Ria Menendez MD General Surgery at [place] [phone] 05/14/2017 2:00 PM [facility] IR ROOM 3 Radiology at [place] [phone] Please expect a call from a radiology nurse within 3 days of your exam, you will need to follow theinstructions given at that time. 05/14/2017 3:30 PM Rasheeda Trent RN; Gustavo Mota MD; [facility], SOCIAL WORK Hematology and Oncology at [place] [phone] 05/21/2017 8:30 AM Rad Nurse, [facility] Radiation Oncology at [facility] [phone] 05/21/2017 9:00 AM Emily Choi MD Radiation Oncology at [facility] [phone] Discharge Medications: Your Medications New Medications Dose [...] Dept Phone 05/07/2017 10:00 AM Romy Abarca, CALL[facility] Physical Therapy [facility] [place] [phone] 05/14/2017 9:00 AM NURSE, PLASTIC SURGERY Plastic Surgery at [place] [phone] 05/14/2017 10:00 AM Ria Menendez MD General Surgery at [place] [phone] 05/14/2017 2:00 PM [facility] IR ROOM 3 Radiology at [place] [phone] Please expect a call from a radiology nurse within 3 days of your exam, you will need to follow theinstructions given at that time. 05/14/2017 3:30 PM Rasheeda Trent RN; Gustavo Mota MD; [facility], SOCIAL WORK Hematology and Oncology at [place] [phone] 05/21/2017 8:[address] [facility] Radiation Oncology at [facility] [phone] 05/21/2017 9:00 AM Emily Choi MD Radiation Oncology at [facility] [phone] Future Appointments Date Time Provider Department Center 05/07/2017 10:00 AM Romy Abarca PT PT Rehab [facility] 05/14/2017 9:00 AM NURSE, PLASTIC SURGERY [facility] 05/14/2017 10:00 AM Ria Menendez MD [facility] 05/14/2017 2:00 PM [facility] IR ROOM 3 IR [facility] 05/14/2017 3:30 PM Gustavo Mota MD Leb Hem Onc [facility] 05/21/2017 8:[address] [facility] [place] [facility] 05/21/2017 9:00 AM Emily Choi MD [facility] [place] [facility] Primary Care Provider: Trinh Coates MD [phone] VNA: No discharge procedures on file. General [...] is during regular office hours, please call [phone]. If it is after regular office hours, or on weekends or holidays, please call [phone] and ask to speak to the Compliance Tester supervisor epoxy fabrication for Interventional Radiology. Revised 03/05/15 Drainage Record NAME: Date of Surgery: Date: Time: If more than one drain, which one: Drainage Amount (per drain) Total Amount (per drain; in 24 hours) Your care was managed by the [facility] at [facility]. If you haveany questions or concerns, please feel free to contact us. Provider Contact Information: Plastic Surgery Clinic: [facility] (after business hours): documented in this encounter [...] is during regular office hours, please call [phone]. If it is after regular office hours, or on weekends or holidays, please call [phone] and ask to speak to the Compliance Tester supervisor epoxy fabrication for Interventional Radiology. Revised 03/05/15 Drainage Record NAME: Date of Surgery: Date: Time: If more than one drain, which one: Drainage Amount (per drain) Total Amount (per drain; in 24 hours) * Patient Instructions* Alma Castillo PA - 05/01/2017 7:35 AM EDT Implant Based Reconstruction Post-op Instructions Your medications were sent electronically to the [facility] pharmacy The healing process after breast reconstruction [...] and only as needed. ??? Take an eokm-ook-dycfqeq stool softener, such as Colace while taking [...] about scheduling, please contact our administrative officesat [phone] For clinical questions, please call our nurses at [phone] Both offices are open Sunday thru Sunday 8a - 5p. With emergencies after hours, call the hospital vertical roll operator at [phone] and ask for the Plastic Surgery Resident supervisor epoxy fabrication. Narcotics: You may be given a prescription [...] called in to our prescription line at [phone]. Narcotic renewals may be requested from 8am-4pm [...] arrival. Post-Op Plan: - Follow up with PLANNING COORDINATOR/nurse - A nurse from clinic will call [...] CLIN 05/14/2017 9:00 AM NURSE, PLASTIC SURGERY [facility] 4M [facility] 05/14/2017 10:00 AM Ria Menendez MD Leb Surg [facility] 05/14/2017 2:00 PM [facility] IR ROOM 3 IR [facility] 05/14/2017 3:30 PM Gustavo Mota MD Leb Hem Onc [facility] 05/21/2017 8:30 AM Rad [facility] [place] [facility] 05/21/2017 9:00 AM Emily Choi MD [facility] [place] [facility] documented in this encounter Medications at [...] for bilateral breast reconstruction after mastectomy with SALVADRO flaps that failed intraoperatively and then Tissue Jewel Hole Rough Opener placement with FNG. Precautions/Restrictions: (P) fall, other [...] 0 JASMYN PRICE PT, DPT 05/01/2017 Pager: [phone] Physical Therapy Inpatient Rehabilitation Department * Diana Azevedo, EMERGENCY SERVICE WORKER - 05/01/2017 6:30 AM EDT Images from [...] by intraoperative tissue demise followed by tissue human resources support specialist placement. ?? Patient has a RIGHT breast [...] ??complicated by intraoperative demise followed by Tissue Jewel Hole Rough Opener placement. Past Medical History: Diagnosis Date ??? [...] Contact Information Primary Emergency Contact: Phillip Sandoval [facility] Mobile Relation: Spouse Behavioral Health History: No-per chart review Substance Use/Abuse: chart review -none listed Other Pertinent/Service Specific Information: None Health/Prescription Coverage: Primary Insurance: Payor: MVP / Plan: MVP NON REFERRAL / Product Type: *No Product type* / Secondary Insurance: Prescription Coverage: see above Preferred Pharmacy: [phone] [address] [place], [place] - [address] [facility] [address] [facility] [address] [facility] [address] Other: None Primary Care Provider: Trinh Coates MD [phone] Patient/Caregiver Goals of Treatment: Safe discharge Potential [...] of care planning. IRA ARTIS RN Pager: [phone] * Shannan Galan RN - 04/30/2017 11:02 [...] from home with assist. Please page this quality analyst/technical writer if you have any questions, thank you. Jasmyn Price, PT Pager #[phone] Physical Therapy Inpatient Rehabilitation * Chau Lei - 04/30/2017 8:40 AM EDT School Bus Operator Encounter Note Patient Name: Wendy Sandoval : [id number] MR#: [id number] Admit Date: 04/26/2017 6:09 AM Hospital Day 4 days Narrative: Visited to assess need for rush seater services Assessment: Patent stated that she was fine and didn't need to see a sales & service associate Intervention and Outcome: None Follow-up: School Bus Operator services remain available Time in Direct Care: 2 minutes Chau Lei 04/30/2017 * Shannan Galan, RN - 04/30/2017 8:39 AM EDT [facility] NURSING DATABASE Name: WENDY SANDOVAL Date of : 1965 AGE 51 y.o. Address: [address] [place] [phone] (home) [phone] (work) Mobile: Telephone Information: Referring Provider: Ria Menendez REASON FOR VISIT: Laterality Right Reason for exam and clinical history: s/p breast reconstruction with bilateral tissue expanders, high drain output, RIGHT breast drain dislodged partially dislodged (still in place), need to replace to prevent fluid accumulation around human resources support specialist Exam/Procedure requested: drain repalcement Is the patient [...] complicated by intraoperative demise followed by Tissue Jewel Hole Rough Opener placement. ?? Patient has a RIGHT breast insitu with large volume output. The drain has become partially dislodged. ?? Assessment: 51 y.o. female with breast CA to the left. Pt underwent bilateral breast reconstructionafter mastectomy with SALVADOR flaps (04/26/17); complicated by intraoperative demise followed by Tissue Jewel Hole Rough Opener placement. ?? Patient has a RIGHT breast [...] of left breast in female, estrogen receptor glashjmxA14.412, Z17.0 ??? Status post bilateral breast reconstruction Z98.890 Pertinent PSH: Past Surgical History: Procedure Laterality Date ??? BREAST BIOPSY Right 11/01 ??? SECTION x 2 ??? HAND SURGERY Right ??? PRG EMG, LARYNX N/A 11/02/2015 FACIAL NERVE MONITORING, SETUP LARYNGEAL performed by Valentina Lucas MD at [facility] OR ??? PRO BREAST RECONSTRUC W FREE FLAP Bilateral 04/26/2017 @BREAST RECONSTRUCTION W/ FREE FLAP, SUSAN (WRVU 42.58) [facility] ??? PRO BREAST RECONSTRUC W TISS EXPANDR Bilateral 04/26/2017 BREAST RECONSTRUCTION, IMMEDIATE OR DELAYED, W/ TISSUE CLERICAL INVESTIGATOR, INCLUDING SUBSEQUENT EXPANSION (WRVU 18.5) performed by Mali Lakhani MD at [facility] OR ??? PRO EXPLORE PARATHYROID GLANDS N/A 11/02/2015 PARATHYROIDECTOMY OR EXPLORATION OF PARATHYROID(S) performed by Valentina Lucas MD at [facility] OR ? ? PRO FULL THICK GRFT TRUNK <20 SQCM Bilateral 04/26/2017 FTSG, FREE, DIR CLOSE DONOR SITE, TRUNK, 20 SQ CM OR LESS (WRVU 9.15) performed by Mali Lakhani MD at [facility] OR ??? PRO MASTECTOMY, SIMPLE, COMPLETE Bilateral 04/26/2017 MASTECTOMY, SIMPLE, COMPLETE-SUSAN (WRVU 15.85) performed by Ria Menendez MD at [facility] OR ??? PRO PARTIAL REMOVAL OF RIB Bilateral 04/26/2017 EXCISION OF RIB, PARTIAL (WRVU 7.26) performed by Mali Lakhani MD at [facility] OR ??? PRO REMOVE ARMPITS LYMPH NODES COMPLT Left 04/26/2017 LYMPHADENECTOMY, AXILLARY, COMPLETE (WRVU 13.87) performed by Ria Menendez MD at [facility] OR ??? PRO THYMECTOMY, TRANSCERVICAL N/A 11/02/2015 THYMECTOMY, TRANSCERVICAL APPROACH performed by Valentina Lucas MD at [facility] OR ??? SHOULDER SURGERY Left ??? UMBILICAL [...] hours as needed for Pain. 11/03/15 Nathaly Saenz, EMERGENCY SERVICE WORKER * Alma Castillo PA - 04/30/2017 8:25 AM EDT PLASTIC SURGERY INPATIENT PROGRESS NOTE Attending: MALI LAKHANI Patient Location: [address] [place] [address] Hospital Admission Date: 04/26/2017 ID: Wendy Sandoval is a 51 y.o. female patient with hx of JACQUELYN on CPAP, HTN, hyperlipidemia, and breast CA to the left. Pt underwent bilateral breast reconstruction after mastectomy with SALVADOR flapscomplicated by intraoperative demise followed by Tissue Jewel Hole Rough Opener placement with FNG. POD5 S/IE: No acute [...] dilaudid for pain. Regular diet, NPO at OR for procedure Ambulation as tolerated Pt will need VNA upon discharge Discharge planning for Sunday pending pt condition Future Appointments Date Time Provider Department Center 04/30/2017 9:00 AM [facility] PENDING IR IR [facility] 05/07/2017 10:00 AM Romy Abarca, PT PT Rehab [facility] 05/14/2017 9:00 AM NURSE, PLASTIC SURGERY [facility] 4[facility] 05/14/2017 10:00 AM Ria Menendez MD [facility]b Surg [facility] 05/14/2017 3:30 PM Gustavo Mota MD [facility] Hem Onc [facility] 05/21/2017 8:[address] [facility] [place] [facility] 05/21/2017 9:00 AM Emily Choi MD [facility] [place] [facility] Alma Casitllo PA-C Plastic Surgery Pager [phone] * Diana Azevedo, EMERGENCY SERVICE WORKER - 04/30/2017 8:16 AM EDT INTERVENTIONAL RADIOLOGY [...] complicated by intraoperative demise followed by Tissue Jewel Hole Rough Opener placement. Patient has a RIGHT breast insitu with large volume output. The drain has become partially dislodged. Past Medical/Surgical History: Patient Active Problem List Diagnosis Code ??? Hypertension I10 ??? Depression F32.9 ??? Obstructive sleep apnea (adult) (pediatric) G47.33 ??? OA (osteoarthritis) M19.90 ??? Overweight(278.02) E66.3 ??? Hyperparathyroidism E21.3 ??? Malignant neoplasm of upper-outer quadrant of left breast in female, estrogen receptor eeaxgjkqO65.412, Z17.0 ??? Status post bilateral breast reconstruction [...] LARYNGEAL performed by Valentina Lucas MD at [facility] MAIN OR ??? PRO BREAST RECONSTRUC W FREE FLAP Bilateral 04/26/2017 @BREAST RECONSTRUCTION W/ FREE FLAP, SUSAN (WRVU 42.58) performed by Mali Lakhani MD at [facility] [place] ??? PRO BREAST RECONSTRUC W TISS EXPANDR Bilateral 04/26/2017 BREAST RECONSTRUCTION, IMMEDIATE OR DELAYED, W/ TISSUE CLERICAL INVESTIGATOR, INCLUDING SUBSEQUENT EXPANSION (WRVU 18.5) performed by Mali Lakhani MD at [facility] OR ??? PRO EXPLORE PARATHYROID GLANDS N/A 11/02/2015 PARATHYROIDECTOMY OR EXPLORATION OF PARATHYROID(S) performed by Valentina Lucas MD at [facility] OR ? ? PRO FULL THICK GRFT TRUNK <20 SQCM Bilateral 04/26/2017 FTSG, FREE, DIR CLOSE DONOR SITE, TRUNK, 20 SQ CM OR LESS (WRVU 9.15) performed by Mali Lakhani MD at [facility] OR ??? PRO MASTECTOMY, SIMPLE, COMPLETE Bilateral 04/26/2017 MASTECTOMY, SIMPLE, COMPLETE-SUSAN (WRVU 15.85) performed by Ria Menendez MD at [facility] OR ??? PRO PARTIAL REMOVAL OF RIB Bilateral 04/26/2017 EXCISION OF RIB, PARTIAL (WRVU 7.26) performed by Mali Lakhani MD at [facility] OR ??? PRO REMOVE ARMPITS LYMPH NODES COMPLT Left 04/26/2017 LYMPHADENECTOMY, AXILLARY, COMPLETE (WRVU 13.87) performed by Ria Menendez MD at [facility] OR ??? PRO THYMECTOMY, TRANSCERVICAL N/A 11/02/2015 THYMECTOMY, TRANSCERVICAL APPROACH performed by Valentina Lucas MD at [facility] OR ??? SHOULDER SURGERY Left ??? UMBILICAL [...] complicated by intraoperative demise followed by Tissue Jewel Hole Rough Opener placement. Patient has a RIGHT breast insitu [...] PROGRESS NOTE Attending: MALI LAKHANI Patient Location: [address] [place] [address] Hospital Admission Date: 04/26/2017 ID: Wendy Sandoval is a 51 y.o. female patient with hx of JACQUELYN on CPAP, HTN, hyperlipidemia, and breast CA to the left. Pt underwent bilateral breast reconstruction after mastectomy with SALVADOR flapscomplicated by intraoperative demise followed by Tissue Jewel Hole Rough Opener placement with FNG. POD3 S/IE: No acute [...] no acute distress, pleasant, cooperative, resting comfortably, RAILWAY SIGNAL ELECTRICIAN at bedside performing sponge bath HEENT: atraumatic, [...] wbc, hgb, hct plt Recent Labs 04/29/17 08 WBC 15.7* HGB 11.8 HCT 34.6* Last [...] dilaudid for pain. Regular diet, NPO at OR for procedure Ambulation as tolerated Pt will need VNA upon discharge Future Appointments Date Time Provider Department Center 05/07/2017 10:00 AM Romy Abarca, PT PT Rehab [facility] 05/14/2017 9:00 AM NURSE, PLASTIC SURGERY [facility] 4M [facility] 05/14/2017 10:00 AM Ria Menendez MD Leb Surg [facility] 05/14/2017 3:30 PM Gustavo Mota MD Leb Hem Onc [facility] 05/21/2017 8:30 AM Rad , [facility] [place] [facility] 05/21/2017 9:00 AM Emily Choi MD [facility] [place] [facility] Yo Krueger MD Plastic Surgery, PGY-4 [id number] * Yo Krueger MD - 04/28/2017 11:07 AM EST PLASTIC SURGERY INPATIENT PROGRESS NOTE Attending: MALI LAKHANI Patient Location: [address] [place] [address] Hospital Admission Date: 04/26/2017 ID: Wendy Sandoval is a 51 y.o. female patient with hx of JACQUELYN on CPAP, HTN, hyperlipidemia, and breast CA to the left. Pt underwent bilateral breast reconstruction after mastectomy with SALVADOR flapscomplicated by intraoperative demise followed by Tissue Jewel Hole Rough Opener placement with FNG. POD2. S/IE: No acute [...] AM NURSE, PLASTIC SURGERY [facility] 4[facility] 05/14/2017 10:00 AM Ria Menendez MD Leb Surg [facility] 05/14/2017 3:30 PM Gustavo Mota MD Leb Hem Onc [facility] 05/21/2017 8:30 AM Rad Nurse, [facility] ST [facility] [place] [facility] 05/21/2017 9:00 AM Emily Choi MD [facility] [place] [facility] Yo Krueger MD Plastic Surgery, PGY-4 [...] PROGRESS NOTE Attending: MALI LAKHANI [facility] Date: 04/26/2017 ID: Wendy Sandoval is a 51 y.o. female patient with hx of JACQUELYN on CPAP, HTN, hyperlipidemia, and breast CA to the left. Pt underwent bilateral breast reconstruction after mastectomy with SALVADOR flapsthat failed intraoperatively and then Tissue Jewel Hole Rough Opener placement with FNG. POD1. S: No acute [...] 10:00 AM Romy Abarca, PT PT Rehab [facility] 05/14/2017 9:00 AM NURSE, [facility]ERY [facility] 05/14/2017 10:00 AM Ria [facility] 05/14/2017 3:30 PM Gustavo Mota MD Leb Hem Onc [facility] 05/21/2017 8:[address] [facility] [place] [facility] 05/21/2017 9:00 AM Emily Choi MD [facility] [place] [facility] Alma Castillo PA-C Plastic Surgery Pager [phone] * Lucina Pedersen MD - 04/27/2017 3:09 AM EST Post-Operative Check Wendy Sandoval is a 51 y.o. female s/p Procedure(s): @BREAST RECONSTRUCTION W/ FREE FLAP, SUSAN (WRVU 42.58) EXCISION OF RIB, PARTIAL (WRVU 7.26) MASTECTOMY, SIMPLE, COMPLETE-SUSAN (WRVU 15.85) MODIFIER , NIPPLE SPARING LYMPHADENECTOMY, AXILLARY, COMPLETE (WRVU 13.87) BREAST RECONSTRUCTION, IMMEDIATE OR DELAYED, W/ TISSUE CLERICAL INVESTIGATOR, INCLUDING SUBSEQUENT EXPANSION (WRVU 18.5) FTSG, FREE, [...] See flowsheet for further information. 0300- Sol MD at bedside- reviewed labs and chest xray. [...] Pt resting intermittently. 0700- Spoke with plastics technology internship supervisor epoxy fabrication regaurding pts pain 6/10 and getting worse. All pain medications utilized at this time. Per technology internship fine to give another 5mg now since only 5mg was given at 0450. 0715- Report given to Mariel in PACU. documented in this encounter H&P Notes * Kaveh Whiteside MD - 04/26/2017 7:22 AM EST INTERVAL H&P CC: breast Ca S: Wendy Martinezmoreno's condition is unchanged since H&P originally performed. [...] LARYNGEAL performed by Valentina Lucas MD at [facility] MAIN OR ??? PRO EXPLORE PARATHYROID GLANDS N/A 11/02/2015 PARATHYROIDECTOMY OR EXPLORATION OF PARATHYROID(S) performed by Valentina Lucas MD at [facility] MAIN OR ??? PRO THYMECTOMY, TRANSCERVICAL N/A 11/02/2015 THYMECTOMY, TRANSCERVICAL APPROACH performed by Valentina Lucas MD at [facility] MAIN OR ??? SHOULDER SURGERY [...] AXILLARY, COMPLETE (WRVU 13.87) [place]ioid PDMP 04/05/2017 [place] Query Date 04/26/2017 [place] QUERY DATE: 04/26/17 Risk Assessment Category: [...] 05/14/2017 9:00 AM NURSE, PLASTIC SURGERY [facility] Kaveh Whiteside MD Plastic Surgery Resident, PGY-7 [...] The right breast was normal. Biopsy revealed stronglyER/PA+, HER2- IDC. MRI was then obtained for [...] complicated by intraoperative demise followed by Tissue Jewel Hole Rough Opener placement. ??Patient has a RIGHT breast insitu [...] showed a space circumferentially around the tissue human resources support specialist. A 10Fr catheter was placed over the guide wire with the pigtail formed at 6 o'clock vs the breast implant with the idea that 6 o'clock would be dependent when MsMary Jo Martinezosh upright. Access site dressed. Medications: Fentanyl [...] weeks assuming output declines. Resident/Fellow: None. Attending: I, Dr. Crowley performed this procedure. I was [...] Lakhani MD - 04/30/2017 5:18 PM EDT [facility] [place] Note Patient Name: Wendy Sandoval : [id number] MR#: [id number] Case Date: 04/26/2017 - 04/27/2017 Surgeon: Surgeon(s) [...] BREAST RECONSTRUCTION, IMMEDIATE OR DELAYED, W/ TISSUE CLERICAL INVESTIGATOR, INCLUDING SUBSEQUENT EXPANSION (WRVU 18.5) (Bilateral) FTSG, FREE, DIR CLOSE DONOR SITE, TRUNK, 20 SQ CM OR LESS (WRVU 9.15) (Bilateral) Anesthesia: General Estimated Blood Loss: 80 mL Implant Name Type Inv. Item Serial No. Education Courses Sales Representative Lot No. LRB No. Used Action CHIEF INFORMATION OFFICER,GOLD,3.0MM ([id number]) - [id number] IMPLANTS CHIEF INFORMATION OFFICER,GOLD,3.0MM ([id number]) [employer] - - [id number] Left 1 Implanted and Explanted CHIEF INFORMATION OFFICER,GOLD,3.0MM ([id number]) - [id number] IMPLANTS CHIEF INFORMATION OFFICER,GOLD,3.0MM ([id number]) [employer] - - [id number] Left 1 Implanted and Explanted CHIEF INFORMATION OFFICER,GOLD,3.0MM ([id number]) - [id number] IMPLANTS CHIEF INFORMATION OFFICER,GOLD,3.0MM ([id number]) [employer] - - [id number] Right 1 Implanted and Explanted EXPAND,TISS,ARTOURA,600CC ([id number]) (AUTOREQ) - [id number] IMPLANTS EXPAND,TISS,ARTOURA,600CC ([id number]) (AUTOREQ) [id number] [employer] - [id number] Right 1 Implanted EXPAND,TISS,ARTOURA,600CC ([id number]) (AUTOREQ) - [id number] IMPLANTS EXPAND,TISS,ARTOURA,600CC ([id number]) (AUTOREQ) [id number] [employer] - [id number] Left 1 Implanted Specimens removed during surgery: Order Name Source Comment Collection Info Order Time SPECIMEN TO PATHOLOGY Short Stitch=Superior, Long Stitch=Lateral, Single Stitch=Base of Nipple. 40805 Left Breast Cancer Left Breast Yes Excision 04/26/2017 10:52 AM Time removed from patient: 10:50 AM SPECIMEN TO PATHOLOGY 44221 Left Breast Cancer Left Axillary Dissection Yes [...] performed a coupled anastomoses with 3 mm linotyper between the superficial inferior epigastric vein andthe [...] anastomosis with a 3 mm synovis micro linotyper between the superficial inferior epigastric vein and [...] cc of methylene blue impregnated saline. The human resources support specialist tabs were sewn to the pectoralis muscle [...] our donor defect inthe abdomen over #19 Bulgarian Juliano drains. Closure was performed in multiple [...] (Interventions Implemented as Appropriate) 04/29/17 1242 04/29/17 1952 Coping/Psychosocial Plan Of Care Reviewed With -- [...] flaps that failed intraoperatively and then Tissue Jewel Hole Rough Opener placement with FNG. Pt reported that her [...] assist for gait. Cosme Coleman, PT Pager: [phone] Inpatient Physical Therapy 04/29/17 1155 Rehab Evaluation [...] flaps that failed intraoperatively and then Tissue Jewel Hole Rough Opener placement with FNG. Precautions/Restrictions fall;other (see comments) [...] Assessment/Treatment (Group);Transfer Assessment/Treatment (Group) Bed Mobility Assessment/Treatment Zjvzwe-zy-Ztr [place] (Bed Mobility) minimum assist (75% patient effort) Erc-fv-Xifyit [place] (Bed Mobility) minimum assist (75% patient effort) Impairments (Bed Mobility) pain Comment (Bed Mobility) Slow transition Transfer Assessment/Treatment [place] (Sit-Stand Transfers) contact guard assist [place] (Stand-Sit Transfers) contact guard assist Fga-Mmsfb-Lki Assistive Device (Transfers) rolling walker [place] (Toilet Transfers) (SBA) Assistive Device (Toilet Transfers) grab bar;rolling walker Impairments (Transfers) pain;strength decreased Comment (Transfers) Pt had difficulty with transition secondary to pain. Gait Assessment/Treatment [place] (Gait) (SBA) Assistive Device (Gait) rolling walker Distance in Feet (Gait) 10ft x 2 Gait Pattern Analysis swing-through gait Deviations (Gait) radha decreased;step length decreased Impairments (Gait) pain Comment (Gait) Pt limited by pain but steady with walking Stairs Assessment/Treatment Number of Stairs (Stairs) 1 Handrail Location (Stairs) none [place] (Stairs) moderate assist (50% patient effort) Impairments (Stairs) pain;strength decreased Comment (Stairs) Hand hold assist. Pt reports it felt like her back was going to give out but that her pain was tolerable. Motor Skills/Interventions Additional Documentation Balance Skills Training (Group) Balance Skills Training Sitting Balance: Static good balance Sitting Balance: Dynamic good balance Jua-fs-Wnomt Balance fair balance Standing Balance: Static fair [...] to sit/sit to supine Bed Mobility Goal, [place] Level independent Bed Mobility Goal, Date Goal Reviewed 04/29/17 Bed Mobility Goal, Outcome Achieved goal ongoing Gait Training Goal Gait Training Goal, Date Established 04/28/17 Gait Training Goal, Time to Achieve by discharge Gait Training Goal, [place] Level independent Gait Training Goal, Assist Device walker, rolling Gait Training Goal, Distance to Achieve 100ft Gait Training Goal, Additional Goal Ascend/descent 2 steps Gait Training Goal, Date Goal Reviewed 04/29/17 Gait Training Goal, Outcome goal ongoing Transfer Training Goal Transfer Training Goal, Date Established 04/28/17 Transfer Training Goal, Time to Achieve by discharge Transfer Training Goal, Activity Type glq-sw-nzqcq/orgte-km-cuy;mfn-lw-jvhaq/vcddf-ex-hdj Transfer Train Goal, [place] Level independent Transfer Training Goal, Assist Device [...] (CPG) 04/27/17 1823 Skin Integrity Impairment, Risk/Actual () [...] flaps that failed intraoperatively and then Tissue Jewel Hole Rough Opener placement with FNG. Precautions/Restrictions: fall, other (see [...] assist with gait Cosme Coleman, PT Pager: [phone] Inpatient Physical Therapy 04/28/17 1105 Rehab Evaluation [...] flaps that failed intraoperatively and then Tissue Jewel Hole Rough Opener placement with FNG. Precautions/Restrictions fall;other (see comments) [...] Assessment/Treatment (Group);Transfer Assessment/Treatment (Group) Bed Mobility Assessment/Treatment Wboeao-al-Arc [place] (Bed Mobility) minimum assist (75% patient effort) Ple-vd-Cwzofp [place] (Bed Mobility) minimum assist (75% patient effort) Impairments (Bed Mobility) pain;strength decreased Comment (Bed Mobility) Slow transitions Transfer Assessment/Treatment [place] (Sit-Stand Transfers) contact guard assist [place] (Stand-Sit Transfers) contact guard assist Yjz-Wodyb-Dga Assistive Device (Transfers) rolling walker [place] (Toilet Transfers) (SBA) Assistive Device (Toilet Transfers) grab bar;rolling walker Impairments (Transfers) pain;strength decreased Comment (Transfers) Pt limited by pain. Gait Assessment/Treatment [place] (Gait) (SBA) Assistive Device (Gait) rolling walker [...] good balance Sitting Balance: Dynamic good balance Hko-ra-Wsqar Balance fair balance Standing Balance: Static fair [...] to sit/sit to supine Bed Mobility Goal, [place] Level independent Gait Training Goal Gait Training Goal, Date Established 04/28/17 Gait Training Goal, Time to Achieve by discharge Gait Training Goal, [place] Level independent Gait Training Goal, Assist Device walker, rolling Gait Training Goal, Distance to Achieve 100ft Gait Training Goal, Additional Goal Ascend/descent 2 steps Transfer Training Goal Transfer Training Goal, Date Established 04/28/17 Transfer Training Goal, Time to Achieve by discharge Transfer Training Goal, Activity Type jpa-ba-uzuwk/qtvbq-ek-fvz;alj-wl-qaobx/aevqj-cm-okr Transfer Train Goal, [place] Level independent Transfer Training Goal, Assist Device [...] promoted;ambulation promoted Pain Management Interventions analgesic trial initiated;isrowk-etx-runve dosing utilized;pain management plan reviewed with patient/caregiver Safety Interventions Medication Review/Management medications reviewed Intervention: Mutually Develop/Implement Acute Pain Management Plan 04/27/171822 Manage Acute Burn Pain Pain Management Interventions analgesic trial initiated;ezasvi-txe-qgyod dosing utilized;pain management plan reviewed with patient/caregiver Intervention: Support/Optimize Psychosocial Response to Acute Pain 04/27/17 17004/27/171822 Coping Strategies Supportive Measures -- active listening utilized Diversional Activities television -- Trust Relationship/Rapport care explained;questions answered;reassurance provided;thoughts/feelingsacknowledged -- Goal: Identify Related Risk Factors and Signs and Symptoms Related risk factors and signs and symptoms are identified upon initiation of Human Response Clinical Practice Guideline (CPG) Outcome: Ongoing (Interventions Implemented as Appropriate) 04/27/17 182 Pain, Acute Related Risk Factors (Acute Pain) surgery Signs and Symptoms (Acute Pain) fatigue/weakness;verbalization of pain descriptors Goal: Acceptable Pain Control/Comfort Level Patient will demonstrate the desired outcomes by discharge/transition of care. Outcome: Ongoing (Interventions Implemented as Appropriate) 04/27/171822 Pain, Acute (Adult) Acceptable Pain Control/Comfort Level making progress toward outcome Problem: Skin Integrity Impairment, Risk/Actual () Goal: Identify Related Risk Factors and Signs and Symptoms Related risk factors and signs and symptoms are identified upon initiation of Human Response Clinical Practice Guideline (CPG) Outcome: Ongoing (Interventions Implemented as Appropriate) 04/27/17 182 Skin Integrity Impairment, Risk/Actual (Infant) Related Risk Factors (Skin Integrity Impairment) positioning Goal: Skin Integrity Patient will demonstrate the desired outcomes by discharge/transition of care. Outcome: Ongoing (Interventions Implemented as Appropriate) 04/27/17 182 Skin Integrity Impairment, Risk/Actual () Skin Integrity [...] agreement. Treviño pulled at 1700, DTV between [phone]. PLAN MOVING FORWARD: Continue to medicate for [...] flaps that failed intraoperatively and then Tissue Jewel Hole Rough Opener placement with FNG. Past Medical History: Diagnosis [...] Lucas MD at [facility] OR ??? PRO BREAST RECONSTRUC W FREE FLAP Bilateral 04/26/2017 @BREAST RECONSTRUCTION W/ FREE FLAP, SUSAN (WRVU 42.58) [facility] ??? PRO BREAST RECONSTRUC W TISS EXPANDR Bilateral 04/26/2017 BREAST RECONSTRUCTION, IMMEDIATE OR DELAYED, W/ TISSUE CLERICAL INVESTIGATOR, INCLUDING SUBSEQUENT EXPANSION (WRVU 18.5) performed by Mali Lakhani MD at [facility] OR ??? PRO EXPLORE PARATHYROID GLANDS N/A 11/02/2015 PARATHYROIDECTOMY OR EXPLORATION OF PARATHYROID(S) performed by Valentina Lucas MD at [facility] OR ? ? PRO FULL THICK GRFT TRUNK <20 SQCM Bilateral 04/26/2017 FTSG, FREE, DIR CLOSE DONOR SITE, TRUNK, 20 SQ CM OR LESS (WRVU 9.15) performed by Mali Lakhani MD at [facility] OR ??? PRO MASTECTOMY, SIMPLE, COMPLETE Bilateral 04/26/2017 MASTECTOMY, SIMPLE, COMPLETE-SUSAN (WRVU 15.85) performed by Ria Menendez MD at [facility] OR ??? PRO PARTIAL REMOVAL OF RIB Bilateral 04/26/2017 EXCISION OF RIB, PARTIAL (WRVU 7.26) performed by Mali Lakhani MD at [facility] OR ??? PRO REMOVE ARMPITS LYMPH NODES COMPLT Left 04/26/2017 LYMPHADENECTOMY, AXILLARY, COMPLETE (WRVU 13.87) performed by Ria Menendez MD at [facility] OR ??? PRO THYMECTOMY, TRANSCERVICAL N/A 11/02/2015 THYMECTOMY, TRANSCERVICAL APPROACH performed by Valentina Lucas MD at [facility] OR ??? SHOULDER SURGERY Left ??? UMBILICAL [...] flaps that failed intraoperatively and then Tissue Jewel Hole Rough Opener placement with FNG. Precautions Comments Full code; [...] (Bed Mobility) bed rails;draw sheet (HOB raised) Ntpdvm-xo-Oec [place] (Bed Mobility) minimum assist (75% patient effort);verbal cues required Rxf-vz-Jcaely [place] (Bed Mobility) moderate assist (50% patient effort);verbal cues required Safety Issues (Bed Mobility) impaired trunk control for bed mobility Impairments (Bed Mobility) pain;balance impaired;strength decreased;ROM (range of motion) decreased (functional endurance limited post op ) Comment (Bed Mobility) performed with increased time Transfer Assessment/Treatment [place] (Sit-Stand Transfers) minimum assist (75% patient effort);2 person assist required [place] (Stand-Sit Transfers) minimum assist (75% patient effort);2 person assist required Myy-Ctsuq-Dlo Assistive Device (Transfers) ((B) Hand hold support) Impairments (Transfers) pain;balance impaired;strength decreased;ROM (range of motion) decreased (functional endurance limited post op) Comment (Transfers) performed with increased time; Performed marching at EOB x1 min, unable to progress gait 2/2 pain however anticipate with rehearsal would demonstrate improved tolerance. Gait Assessment/Treatment [place] (Gait) not appropriate to assess (limited by [...] of left breast in female, estrogen receptor apjlczhdN57.412, Z17.0 ??? Status post bilateral breast reconstruction [...] this evaluation. JASMYN PRICE PT, DPT Pager: [phone] Inpatient Physical Therapy * Op Note - Alyx Estrella MD - 04/27/2017 1:58 PM EST [facility] Operative Note Patient Name: Wendy Sandoval : [id number] MR#: [id number] Case Date: 04/26/2017 - 04/27/2017 Surgeon: Surgeon(s) [...] BREAST RECONSTRUCTION, IMMEDIATE OR DELAYED, W/ TISSUE CLERICAL INVESTIGATOR, INCLUDING SUBSEQUENT EXPANSION (WRVU 18.5) (Bilateral) FTSG, [...] size. This was then reinforced with 2 stinep-na-zghitkeysyfe also in 4-0 PDS. The leak, although [...] Oliverio Machado - 04/27/2017 3:00 AM EST [facility] Department of Thoracic Surgery Inpatient Consultation Note [facility] [place] [address] [place] [address] FAX: Patient Name: Wendy Sandoval Patient : 1965 Patient Patient Location: [address] This consultation request was made by: MALI LAKHANI Consulting thoracic surgery attending: Alyx Estrella MD HPI: Wendy Sandoval is a 51 y.o. 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 She presented [place] [facility] on [place]/[facility]/2017 for a scheduled bilateral mastectomy [...] of left breast in female, estrogen receptor ikccdfpn25/10/2018 ??? Hyperparathyroidism 11/02/2015 ??? Obstructive sleep apnea [...] LARYNGEAL performed by Valentina Lucas MD at [facility] OR ??? PRO EXPLORE PARATHYROID GLANDS N/A 11/02/2015 PARATHYROIDECTOMY OR EXPLORATION OF PARATHYROID(S) performed by Valentina Lucas MD at [facility] OR ??? PRO THYMECTOMY, TRANSCERVICAL N/A 11/02/2015 THYMECTOMY, TRANSCERVICAL APPROACH performed by Valentina Lucas MD at [facility] OR ??? SHOULDER SURGERY [...] Admission (Current) from 04/26/2017 in PACU at [facility] Office Visit from 04/05/2017 in Plastic Surgery at [place] Weight 76.7 kg (169 lb) 1 04/26/2017 [...] 51 y.o. female with PMHx significant for ER/PA+ HER2- invasive ductal carcinoma s/p bilateral mastectomy [...] Stratton MD 04/27/2017 Thoracic Surgery Service Pager [phone] Associated attestation - Alyx Estrella MD - [...] Whiteside MD - 04/27/2017 12:27 AM EST [facility] Brief Operative Note Patient Name: Wendy Sandoval : 1965 MR#: [id number] Case Date: 04/26/2017 Surgeon: Surgeon(s) and Role: MD Ammy - Primary MD Stevo Preoperative diagnosis: Left breast cancer Postoperative diagnosis: Left breast cancer Procedure(s): @BREAST RECONSTRUCTION W/ FREE FLAP, SUSAN (WRVU 42.58) EXCISION OF RIB, PARTIAL (WRVU 7.26) BREAST RECONSTRUCTION, IMMEDIATE OR DELAYED, W/ TISSUE CLERICAL INVESTIGATOR, INCLUDING SUBSEQUENT EXPANSION (WRVU 18.5) FTSG, FREE, DIR CLOSE DONOR SITE, TRUNK, 20 SQ CM OR LESS (WRVU 9.15) Anesthesia: gen Estimated Blood Loss: 100cc Specimens removed during surgery: see Dr Menendez's portion of case Drains: 19F x 2 abdomen, 15F b/l breast Surgical Closure: prolene Implant(s): Implant Name Type Inv. Item Serial No. Education Courses Sales Representative Lot No. LRB No. Used Action CHIEF INFORMATION OFFICER,GOLD,3.0MM ([id number]) - [id number] IMPLANTS CHIEF INFORMATION OFFICER,GOLD,3.0MM ([id number]) [employer] - - [id number] Left 1 Implanted and Explanted CHIEF INFORMATION OFFICER,GOLD,3.0MM ([id number]) - [id number] IMPLANTS CHIEF INFORMATION OFFICER,GOLD,3.0MM (1509950) [employer] - - [id number] Left 1 Implanted and Explanted CHIEF INFORMATION OFFICER,GOLD,3.0MM (2296534) - [id number] IMPLANTS CHIEF INFORMATION OFFICER,GOLD,3.0MM (6942221) [employer] - - [id number] Right 1 Implanted and Explanted EXPAND,TISS,ARTOURA,600CC ([id number]) (AUTOREQ) - [id number] IMPLANTS EXPAND,TISS,ARTOURA,600CC (2141909) (AUTOREQ) [id number] Kaliki [facility] [id number] Right 1 Implanted EXPAND,TISS,ARTOURA,600CC ([id number]) (AUTOREQ) - [id number] IMPLANTS EXPAND,TISS,ARTOURA,600CC ([id number]) (AUTOREQ) [id number] [id number] [id number] Left 1 Implanted Disposition: awakened from anesthesia, [...] 10:00 AM Romy Abarca PT PT Rehab [facility] 05/14/2017 9:00 AM NURSE, PLASTIC SURGERY [facility] [address] [place] [address] CLIN 05/14/2017 10:00 AM Ria Menendez MD [facility] [place] [facility] 05/14/2017 3:30 PM Gustavo Mota MD [facility] Hem Onc [place] [facility] 05/21/2017 8:[address] Mike J [facility] [place] [facility] 05/21/2017 9:00 AM Emily Choi MD [facility] [place] [facility] Kaveh Whiteside MD Plastic Surgery, PGY-7 * Op Note - Ria Menendez MD - 04/26/2017 1:02 PM EST [facility] Operative Note Patient Name: Wendy Sandoval : [id number] MR#: [id number] Case Date: 04/26/2017 Surgeon: Surgeon(s) and Role: [...] Stitch=Superior, Long Stitch=Lateral, Single Stitch=Base of Nipple. 52623 Left Breast Cancer Left Breast Yes Excision 04/26/2017 10:52 AM Time removed from patient: 10:50 AM SPECIMEN TO PATHOLOGY 20521 Left Breast Cancer Left Axillary Dissection Yes [...] 01/22/2024 10:30 AM EST Appointment Mammography/[place] [address] Ladi Mendosa MD [facility] HEMATOLOG[place] [address] 01/30/2024 11:30 AM EST Office Visit Dermatology at [facility] [address] [place] [address] Nilda Luis MD [facility] DR [place] [address] 02/15/2024 9:30 AM [place] [id number] [place] [address] documented as of this encounter Procedures Procedure [...] BREAST RECONSTRUCTION, IMMEDIATE OR DELAYED, W/ TISSUE CLERICAL INVESTIGATOR, INCLUDING SUBSEQUENT EXPANSION (WRVU 14.84) 04/26/2017 7:40 [...] 3:39 AM EDT) Neutrophils % 63.4 % [facility] Neutr Abs (ANC) 10.92(H) 1.70 - 6.10 x10(3)/ L [facility] Lymphocytes % 16.8 % [facility] Lymphocytes Abs 2.9 0.9 - 3.2 x10(3)/[facility] Monocytes % 9.8 % [facility] Monocyte Abs 1.7(H) 0.3 - 0.9 x10(3)/[facility] Eosinophils % 5.1 % [facility] Eosinophils Abs 0.9(H) 0.0 - 0.4 x10(3)/[facility] Basophils % 1.5 % [facility] Basophils Abs 0.2(H) 0.0 - 0.1 x10(3)/[facility] Immature Gran % 3.40 % [facility] Comment: Immature granulocytes(IG's)percentage and absolute count will include metamyelocytes, myelocytes, and promyelocytes. Blood smears from CBCs yielding IG's will be scanned manually for concordance. If this scan disagrees with the automated IG or if promyelocytes are noted, a manual differential will be performed. Nova Gran Abs 0.59(H) 0.00 - 0.04 x10(3)/[facility] Blood specimen (specimen) 05/01/2017 3:39 AM EDT 05/01/2017 3:51 AM EDT Narrative Resulting Agency Comment Spec In Lab Yo Krueger MD HEMATOLOGY ORDERABLE S [facility] [place] [address] * (ABNORMAL) Hemogram (05/01/2017 3:39 AM EDT) WBC 17.2(H) 4.0 - 9.5 x10(3)/[facility] RBC 3.87(L) 4.00 - 5.21 x10(6)/[facility] Hemoglobin 12.2 11.7 - 15.5 gm/dL [facility] Hematocrit 36.4 35.7 - 45.8 % [facility] MCV 94.1 82.6 - 94.4 [facility]ATORY MCH 31.5 27.1 - 32.0 pg [facility] MCHC 33.5 31.7 - 35.0 gm/dL [facility] Platelets 402(H) 145 - 357 x10(3)/[facility] LABORATORY RDWSD 47.7(H) 37.0 - 46.0 [facility] RDWCV 14.0 11.5 - 14.1 % [facility] MPV 8.9 7.6 - 12.9 [facility] nRBC % Auto 0.0 % [facility] nRBC Abs Auto 0.000 0.000 - 0.000 x10(3)/[facility] Blood specimen (specimen) 05/01/2017 3:39 AM EDT 05/01/2017 3:51 AM EDT Narrative Resulting Agency Comment Spec In Lab Yo Krueger MD HEMATOLOGY ORDERABLE S Performing Organization Address City/[facility] [place] [address] * Magnesium (05/01/2017 3:39 AM EDT) Magnesium 0.78 0.69 - 1.07 mmol/L [facility] Blood specimen (specimen) 05/01/2017 3:39 AM EDT 05/01/2017 3:51 AM EDT Narrative Resulting Agency Comment Spec In Lab Mali Lakhani MD CHEMISTRY ORDERABLES Performing Organization Address City/[facility]/ZIP Co de Phone Number [facility] [place] [address] * (ABNORMAL) Basic Metabolic Panel (non-fasting) (05/01/2017 3:39 AM EDT) Glucose Lvl 95 65 - 199 mg/dL [facility] Comment:Diabetes: >=200 mg/d L plus symptoms BUN 17 8 - 18 mg/dL [facility] Creatinine 1.01 0.70 - 1.20 mg/dL [facility] Sodium 142 135 - 145 mmol/L [facility] Potassium 3.7 3.5 - 5.0 mmol/L [facility] Comment: Please note: ??Patients with WBC >100,000 may have falsely elevated Potassium levels. ??For accurate Potassium quantification in these patients send serum separator tube (gold top) for subsequent determinations. ??Contact the Clinical Chemistry Laboratory if there are any questions. Chloride 102 98 - 107 mmol/L [facility] CO2 27 22 - 31 mmol/L [facility] Anion Gap 13 5 - 15 mmol/L [facility] Calcium 8.5 8.5 - 10.5 mg/dL [facility] Estimated GFR 57(L) >=60 [facility] Comment: The reported eGFR should be multiplied by 1.2 for patients. The MDRD is not an appropriate measure of renal function for patients with body mass extremes or in patients with acute kidney failure. [email or web address] [email or web address] [email or web address] Blood specimen (specimen) 05/01/2017 3:39 AM EDT 05/01/2017 3:51 AM EDT Narrative Resulting Agency Comment Spec In Lab Mali Lakhani MD CHEMISTRY ORDERABLES [facility] [place] [address] * IR Breast Drain Placement (04/30/2017 11:18 [...] ??complicated by intraoperative demise followed by Tissue Jewel Hole Rough Opener placement. ??Patient has a RIGHT breast insitu [...] showed a space circumferentially around the tissue human resources support specialist. A 10Fr catheter was placed over the [...] 3:27 AM EDT) Neutrophils % 61.8 % [facility] Neutr Abs (ANC) 9.05(H) 1.70 - 6.10 x10(3)/[facility] Lymphocytes % 19.6 % [facility] Lymphocytes Abs 2.9 0.9 - 3.2 x10(3)/[facility] Monocytes % 9.3 % [facility] Monocyte Abs 1.4(H) 0.3 - 0.9 x10(3)/[facility] LABORATORY Eosinophils % 5.3 % [facility] LABORATORY Eosinophils Abs 0.8(H) 0.0 - 0.4 x10(3)/[facility] LABORATORY Basophils % 1.3 % [facility] LABORATORY Basophils Abs 0.2(H) 0.0 - 0.1 x10(3)/[facility] LABORATORY Immature Gran % 2.70 % [facility] Comment: Immature granulocytes(IG's)percentage and absolute count will include metamyelocytes, myelocytes, and promyelocytes. Blood smears from CBCs yielding IG's will be scanned manually for concordance. If this scan disagrees with the automated IG or if promyelocytes are noted, a manual differential will be performed. Nova Gran Abs 0.40(H) 0.00 - 0.04 x10(3)/[facility] LABORATORY Blood specimen (specimen) 04/30/2017 3:27 AM EDT 04/30/2017 3:47 AM EDT Narrative Resulting Agency Comment Spec In Lab Yo Krueger MD HEMATOLOGY ORDERABLE S [facility] [place] [place] [address] * (ABNORMAL) Hemogram (04/30/2017 3:27 AM EDT) WBC 14.7(H) 4.0 - 9.5 x10(3)/[facility] LABORATORY RBC 3.62(L) 4.00 - 5.21 x10(6)/[facility] LABORATORY Hemoglobin 11.5(L) 11.7 - 15.5 gm/dL [facility] Hematocrit 34.5(L) 35.7 - 45.8 % [facility]ORAT[facility] MCV 95.3(H) 82.6 - 94.4 [facility] LABORATORY MCH 31.8 27.1 - 32.0 pg [facility] MCHC 33.3 31.7 - 35.0 gm/dL [facility] Platelets 350 145 - 357 x10(3)/[facility] RDWSD 49.0(H) 37.0 - 46.0 [facility] RDWCV 13.9 11.5 - 14.1 % [facility] LABORATORY MPV 9.1 7.6 - 12.9 [facility] LABORATORY nRBC % Auto 0.0 % [facility] LABORATORY nRBC Abs Auto 0.000 0.000 - 0.000 x10(3)/[facility] LABORATORY Blood specimen (specimen) 04/30/2017 3:27 AM EDT 04/30/2017 3:47 AM EDT Narrative Resulting Agency Comment Spec In Lab Yo Krueger MD HEMATOLOGY ORDERABLE S Performing Organization Address City/State/[facility] Co de Phone Number [facility] [place] [place] [address] * Magnesium (04/30/2017 3:27 AM EDT) Magnesium 0.84 0.69 - 1.07 mmol/L [facility] Blood specimen (specimen) 04/30/2017 3:27 AM EDT 04/30/2017 3:47 AM EDT Narrative Resulting Agency Comment Spec In Lab Mali Lakhani MD CHEMISTRY ORDERABLES Performing Organization Address City/[facility]/ZIP Co de Phone Number [facility] [place] [place] [address] * (ABNORMAL) Basic Metabolic Panel (non-fasting) (04/30/2017 3:27 AM EDT) Glucose Lvl 99 65 - 199 mg/dL [facility] Comment:Diabetes: >=200 mg/d L plus symptoms BUN 16 8 - 18 mg/dL [facility] Creatinine 1.00 0.70 - 1.20 mg/dL [facility] Sodium 145 135 - 145 mmol/L [facility] Potassium 3.8 3.5 - 5.0 mmol/L [facility] Comment: Please note: ??Patients with WBC >100,000 may have falsely elevated Potassium levels. ??For accurate Potassium quantification in these patients send serum separator tube (gold top) for subsequent determinations. ??Contact the Clinical Chemistry Laboratory if there are any questions. Chloride 106 98 - 107 mmol/L [facility] CO2 26 22 - 31 mmol/L [facility] Anion Gap 13 5 - 15 mmol/L [facility] Calcium 8.3(L) 8.5 - 10.5 mg/dL [facility] Estimated GFR 58(L) >=60 [facility] Comment: The reported eGFR should be multiplied by 1.2 for patients. The MDRD is not an appropriate measure of renal function for patients with body mass extremes or in patients with acute kidney failure. http://GTX Messaging.FaceBuzz/DHnkdep http://GTX Messaging.FaceBuzz/DHMCnkf Blood specimen (specimen) 04/30/2017 3:27 AM EDT 04/30/2017 3:47 AM EDT Narrative Resulting Agency Comment Spec In Lab Mali Lakhani MD CHEMISTRY ORDERABLES Performing Organization Address [facility] Co de Phone Number [facility] [place] [place] [address] * (ABNORMAL) Differential, Automated (04/29/2017 8:09 AM EDT) Neutrophils % 70.4 % [facility] Neutr Abs (ANC) 11.03(H) 1.70 - 6.10 x10(3)/[facility] LABORATORY Lymphocytes % 14.7 % [facility] Lymphocytes Abs 2.3 0.9 - 3.2 x10(3)/[facility] LABORATORY Monocytes % 9.1 % [facility]OR[facility] Monocyte Abs 1.4(H) 0.3 - 0.9 x10(3)/[facility] LABORATORY Eosinophils % 3.7 % [facility] Eosinophils Abs 0.6(H) 0.0 - 0.4 x10(3)/[facility] LABORATORY Basophils % 1.0 % [facility] LABORATORY Basophils Abs 0.2(H) 0.0 - 0.1 x10(3)/[facility] LABORATORY Immature Gran % 1.10 % [facility] Comment: Immature granulocytes(IG's)percentage and absolute count will include metamyelocytes, myelocytes, and promyelocytes. Blood smears from CBCs yielding IG's will be scanned manually for concordance. If this scan disagrees with the automated IG or if promyelocytes are noted, a manual differential will be performed. Nova Gran Abs 0.18(H) 0.00 - 0.04 x10(3)/[facility] LABORATORY Blood specimen (specimen) 04/29/2017 8:09 AM EDT 04/29/2017 8:16 AM EDT Narrative Resulting Agency Comment Spec In Lab Yo Krueger MD HEMATOLOGY ORDERABLE S [facility] [place] [address] * (ABNORMAL) Hemogram (04/29/2017 8:09 AM EDT) WBC 15.7(H) 4.0 - 9.5 x10(3)/[facility] LABORATORY RBC 3.70(L) 4.00 - 5.21 x10(6)/[facility] LABORATORY Hemoglobin 11.8 11.7 - 15.5 gm/dL [facility] Hematocrit 34.6(L) 35.7 - 45.8 % [facility] MCV 93.5 82.6 - 94.4 [facility] LABORATORY MCH 31.9 27.1 - 32.0 pg [facility] MCHC 34.1 31.7 - 35.0 gm/dL [facility] Platelets 300 145 - 357 x10(3)/[facility] LABORATORY RDWSD 47.6(H) 37.0 - 46.0 [facility] RDWCV 13.9 11.5 - 14.1 % [facility] LABORATORY MPV 9.2 7.6 - 12.9 [facility] LABORATORY nRBC % Auto 0.0 % [facility] LABORATORY nRBC Abs Auto 0.000 0.000 - 0.000 x10(3)/[facility] LABORATORY Blood specimen (specimen) 04/29/2017 8:09 AM EDT 04/29/2017 8:16 AM EDT Narrative Resulting Agency Comment Spec In Lab Yo Krueger MD HEMATOLOGY ORDERABLE S Performing Organization Address City/[facility] Co de Phone Number [facility] [place] [address] * Magnesium (04/29/2017 8:09 AM EDT) Magnesium 0.88 0.69 - 1.07 mmol/L [facility] Blood specimen (specimen) 04/29/2017 8:09 AM EDT 04/29/2017 8:16 AM EDT Narrative Resulting Agency Comment Spec In Lab Mali Lakhani MD CHEMISTRY ORDERABLES Performing Organization Address City/[facility]/ZIP Co de Phone Number [facility] [place] [address] * (ABNORMAL) Basic Metabolic Panel (non-fasting) (04/29/2017 8:09 AM EDT) Glucose Lvl 114 65 - 199 mg/dL [facility] Comment:Diabetes: >=200 mg/d L plus symptoms BUN 16 8 - 18 mg/dL [facility] Creatinine 0.89 0.70 - 1.20 mg/dL [facility] Sodium 142 135 - 145 mmol/L [facility] Potassium 3.5 3.5 - 5.0 mmol/L [facility] Comment: Please note: ??Patients with WBC >100,000 may have falsely elevated Potassium levels. ??For accurate Potassium quantification in these patients send serum separator tube (gold top) for subsequent determinations. ??Contact the Clinical Chemistry Laboratory if there are any questions. Chloride 104 98 - 107 mmol/L [facility] CO2 25 22 - 31 mmol/L [facility] Anion Gap 13 5 - 15 mmol/L [facility] Calcium 7.9(L) 8.5 - 10.5 mg/dL [facility] Estimated GFR >60 >=60 [facility] Comment: The reported eGFR should be multiplied by 1.2 for patients. The MDRD is not an appropriate measure of renal function for patients with body mass extremes or in patients with acute kidney failure. http://GT[employer] Messaging.FaceBuzz/DHnkdep http://GT[employer] Messaging.FaceBuzz/DHMCnkf Blood specimen (specimen) 04/29/2017 8:09 AM EDT 04/29/2017 8:16 AM EDT Narrative Resulting Agency Comment Spec In Lab Mali Lakhani MD CHEMISTRY ORDERABLES Performing Organization Address [facility] Co de Phone Number [facility] [place] [place] [address] * (ABNORMAL) Differential, Automated (04/28/2017 4:26 AM EST) Neutrophils % 78.7 % [facility] Neutr Abs (ANC) 14.15(H) 1.70 - 6.10 x10(3)/[facility] LABORATORY Lymphocytes % 8.4 % [facility] Lymphocytes Abs 1.5 0.9 - 3.2 x10(3)/[facility] LABORATORY Monocytes % 11.2 % [facility] Monocyte Abs 2.0(H) 0.3 - 0.9 x10(3)/[facility] LABORATORY Eosinophils % 0.4 % [facility] Eosinophils Abs 0.1 0.0 - 0.4 x10(3)/[facility] LABORATORY Basophils % 0.4 % [facility] Basophils Abs 0.1 0.0 - 0.1 x10(3)/[facility] LABORATORY Immature Gran % 0.90 % [facility] Comment: Immature granulocytes(IG's)percentage and absolute count will include metamyelocytes, myelocytes, and promyelocytes. Blood smears from CBCs yielding IG's will be scanned manually for concordance. If this scan disagrees with the automated IG or if promyelocytes are noted, a manual differential will be performed. Nova Gran Abs 0.17(H) 0.00 - 0.04 x10(3)/[facility] LABORATORY Blood specimen (specimen) 04/28/2017 4:26 AM EST 04/28/2017 4:50 AM EST Narrative Resulting Agency Comment Spec In Lab Yo Krueger MD HEMATOLOGY ORDERABLE S [facility] [place] [address] * (ABNORMAL) Hemogram (04/28/2017 4:26 AM EST) WBC 18.0(H) 4.0 - 9.5 x10(3)/[facility] LABORATORY RBC 3.43(L) 4.00 - 5.21 x10(6)/[facility] LABORATORY Hemoglobin 10.7(L) 11.7 - 15.5 gm/dL [facility] Hematocrit 31.6(L) 35.7 - 45.8 % [facility] MCV 92.1 82.6 - 94.4 [facility] LABORATORY MCH 31.2 27.1 - 32.0 pg [facility] MCHC 33.9 31.7 - 35.0 gm/dL [facility] Platelets 289 145 - 357 x10(3)/[facility] LABORATORY RDWSD 46.9(H) 37.0 - 46.0 [facility] LABORATORY RDWCV 13.8 11.5 - 14.1 % [facility] MPV 9.4 7.6 - 12.9 [facility] LABORATORY nRBC % Auto 0.0 % [facility] nRBC Abs Auto 0.000 0.000 - 0.000 x10(3)/[facility] LABORATORY Blood specimen (specimen) 04/28/2017 4:26 AM EST 04/28/2017 4:50 AM EST Narrative Resulting Agency Comment Spec In Lab Yo Krueger MD HEMATOLOGY ORDERABLE S [facility] [place] [address] * (ABNORMAL) Magnesium (04/28/2017 4:26 AM EST) Magnesium 1.20(H) 0.69 - 1.07 mmol/L [facility] Comment:result rechecked-imm Blood specimen (specimen) 04/28/2017 4:26 AM EST 04/28/2017 4:50 AM EST Narrative Resulting Agency Comment Spec In Lab Mali Lakhani MD CHEMISTRY ORDERABLES [facility] [place] [place] [address] * (ABNORMAL) Basic Metabolic Panel (non-fasting) (04/28/2017 4:26 AM EST) Glucose Lvl 149 65 - 199 mg/dL [facility] Comment:Diabetes: >=200 mg/d L plus symptoms BUN 29(H) 8 - 18 mg/dL [facility] Creatinine 1.09 0.70 - 1.20 mg/dL [facility] Sodium 139 135 - 145 mmol/L [facility] Potassium 3.2(L) 3.5 - 5.0 mmol/L [facility] Comment: Please note: ??Patients with WBC >100,000 may have falsely elevated Potassium levels. ??For accurate Potassium quantification in these patients send serum separator tube (gold top) for subsequent determinations. ??Contact the Clinical Chemistry Laboratory if there are any questions. Chloride 102 98 - 107 mmol/L [facility] CO2 23 22 - 31 mmol/L [facility] Anion Gap 14 5 - 15 mmol/L [facility] Calcium 7.3(L) 8.5 - 10.5 mg/dL [facility] Estimated GFR 53(L) >=60 [facility] Comment: The reported eGFR should be multiplied by 1.2 for patients. The MDRD is not an appropriate measure of renal function for patients with body mass extremes or in patients with acute kidney failure. http://GT[employer] Messaging.FaceBuzz/DHnkdep http://GT[employer] Messaging.FaceBuzz/DHMCnkf Blood specimen (specimen) 04/28/2017 4:26 AM EST 04/28/2017 4:50 AM EST Narrative Resulting Agency Comment Spec In Lab Mali Lakhani MD CHEMISTRY ORDERABLES [facility] [place] [address] * EKG 12 Lead (04/27/2017 3:45 PM EST) Ventricular rate 101 BPM MUSE SYSTEM Atrial Rate 101 BPM MUSE SYSTEM P-R Interval 164 ms MUSE SYSTEM QRS Duration 84 ms MUSE SYSTEM Q-T Interval 362 ms MUSE SYSTEM QTC Calculated (Bezet) 469 ms MUSE SYSTEM Calculated P [place] 36 degrees MUSE SYSTEM Calculated R [place] -8 degrees MUSE SYSTEM Calculated T [place] 47 degrees MUSE SYSTEM INTERPRETATION Sinus tachycardia [...] IMPRESSION No visible pneumothorax. Mali Lakhani MD G DX ORDERABLES * Scan, Peripheral Blood (04/27/2017 1:00 AM EST) Plat Estimate Normal [facility] RBC Morphology Abnormal [facility] Sammie Cells 1-5 /HPF [facility] Blood specimen (specimen) 04/27/2017 1:00 AM EST 04/27/2017 1:20 AM EST Narrative Resulting Agency Comment Spec In Lab Kaveh Whiteside MD HEMATOLOGY O RDERABLES [facility] [place] [place] [address] * (ABNORMAL) Differential, Automated (04/27/2017 1:00 AM EST) Neutrophils % 81.9 % [facility] Neutr Abs (ANC) 18.61(H) 1.70 - 6.10 x10(3)/[facility] LABORATORY Lymphocytes % 4.8 % [facility] Lymphocytes Abs 1.1 0.9 - 3.2 x10(3)/[facility] LABORATORY Monocytes % 12.3 % [facility] Monocyte Abs 2.8(H) 0.3 - 0.9 x10(3)/[facility] LABORATORY Eosinophils % 0.0 % [facility] Eosinophils Abs 0.0 0.0 - 0.4 x10(3)/[facility] LABORATORY Basophils % 0.2 % [facility] Basophils Abs 0.0 0.0 - 0.1 x10(3)/[facility] LABORATORY Immature Gran % 0.80 % [facility] Comment: Immature granulocytes(IG's)percentage and absolute count will include metamyelocytes, myelocytes, and promyelocytes. Blood smears from CBCs yielding IG's will be scanned manually for concordance. If this scan disagrees with the automated IG or if promyelocytes are noted, a manual differential will be performed. Nova Gran Abs 0.19(H) 0.00 - 0.04 x10(3)/ L [facility] Blood specimen (specimen) 04/27/2017 1:00 AM EST 04/27/2017 1:20 AM EST Narrative Resulting Agency Comment Spec In Lab Kaveh Whiteside MD HEMATOLOGY O RDERABLES Performing Organization Address City/[facility]/[place] [address] * (ABNORMAL) Hemogram (04/27/2017 1:00 AM EST) WBC 22.7(H) 4.0 - 9.5 x10(3)/[facility] LABORATORY RBC 3.79(L) 4.00 - 5.21 x10(6)/[facility] LABORATORY Hemoglobin 12.0 11.7 - 15.5 gm/dL [facility] Hematocrit 36.3 35.7 - 45.8 % [facility] MCV 95.8(H) 82.6 - 94.4 [facility] LABORATORY MCH 31.7 27.1 - 32.0 pg [facility] MCHC 33.1 31.7 - 35.0 gm/dL [facility] Platelets 337 145 - 357 x10(3)/[facility] LABORATORY RDWSD 47.4(H) 37.0 - 46.0 [facility] LABORATORY RDWCV 13.4 11.5 - 14.1 % [facility] MPV 9.3 7.6 - 12.9 [facility] LABORATORY nRBC % Auto 0.0 % [facility] nRBC Abs Auto 0.000 0.000 - 0.000 x10(3)/[facility] LABORATORY Blood specimen (specimen) 04/27/2017 1:00 AM EST 04/27/2017 1:20 AM EST Narrative Resulting Agency Comment Spec In Lab Kaveh Whiteside MD HEMATOLOGY O RDERASIERRA Performing Organization Address City/[facility]/ZIP Co de Phone Number [facility] [place] [address] * (ABNORMAL) Phosphorus (04/27/2017 1:00 AM EST) Phosphorus 6.3(H) 2.5 - 4.5 mg/dL [facility] Blood specimen (specimen) 04/27/2017 1:00 AM EST 04/27/2017 1:20 AM EST Narrative Resulting Agency Comment Spec In Lab Mali Lakhani MD CHEMISTRY ORDERABLES Performing Organization Address City/[facility] Co de Phone Number [facility] [place] [address] * (ABNORMAL) Magnesium (04/27/2017 1:00 AM EST) Magnesium 0.56(L) 0.69 - 1.07 mmol/L [facility] Blood specimen (specimen) 04/27/2017 1:00 AM EST 04/27/2017 1:20 AM EST Narrative Resulting Agency Comment Spec In Lab Mali Lakhani MD CHEMISTRY ORDERABLES Performing Organization Address [facility] Co de Phone Number [facility] [place] [address] * (ABNORMAL) Calcium (04/27/2017 1:00 AM EST) Calcium 7.2(L) 8.5 - 10.5 mg/dL [facility] Blood specimen (specimen) 04/27/2017 1:00 AM EST 04/27/2017 1:20 AM EST Narrative Resulting Agency Comment Spec In Lab Mali Lakhani MD CHEMISTRY ORDERABLES Performing Organization Address [facility] Co de Phone Number [facility] [place] [address] * (ABNORMAL) Creatinine (04/27/2017 1:00 AM EST) Creatinine 1.40(H) 0.70 - 1.20 mg/dL [facility] Estimated GFR 39(L) >=60 [facility] Comment: The reported eGFR should be multiplied by 1.2 for patients. The MDRD is not an appropriate measure of renal function for patients with body mass extremes or in patients with acute kidney failure. http://tokia.lt/DHnkdep http://tokia.lt/DHMCnkf Blood specimen (specimen) 04/27/2017 1:00 AM EST 04/27/2017 1:20 AM EST Narrative Resulting Agency Comment Spec In Lab Mali Lakhani MD CHEMISTRY ORDERABLES Performing Organization Address [facility] de Phone Number [facility] [place] [address] * (ABNORMAL) BUN (04/27/2017 1:00 AM EST) BUN 25(H) 8 - 18 mg/dL [facility] Blood specimen (specimen) 04/27/2017 1:00 AM EST 04/27/2017 1:20 AM EST Narrative Resulting Agency Comment Spec In Lab Mali Lakhani MD CHEMISTRY ORDERABLES Performing Organization Address [facility] Phone Number [facility] [place] [address] * (ABNORMAL) Electrolytes panel (04/27/2017 1:00 AM EST) Sodium 140 135 - 145 mmol/L [facility] Potassium 3.4(L) 3.5 - 5.0 mmol/L [facility] Comment: Please note: ??Patients with WBC >100,000 may have falsely elevated Potassium levels. ??For accurate Potassium quantification in these patients send serum separator tube (gold top) for subsequent determinations. ??Contact the Clinical Chemistry Laboratory if there are any questions. Chloride 98 98 - 107 mmol/L [facility] CO2 18(L) 22 - 31 mmol/L [facility] Anion Gap 24(H) 5 - 15 mmol/L [facility] Blood specimen (specimen) 04/27/2017 1:00 AM EST 04/27/2017 1:20 AM EST Narrative Resulting Agency Comment Spec In Lab Mali Lakhani MD CHEMISTRY ORDERABLES Performing Organization Address [facility] [place] [place] [address] * Specimen to Pathology (04/26/2017 11:57 AM EST) AP Specimen 04/26/2017 11:5 7 AM EST 04/26/2017 12:34 PM EST Narrative [facility] - 04/26/2017 12:34 PM EST Specimen requisition ordered. ??Separate Pathology report to follow Resulting Agency Comment Spec In Lab Mali Lakhani MD PATHOLOGY/CYTOLOGY O RDERABLES Performing Organization Address [facility] [place] [address] * Specimen to Pathology (04/26/2017 10:52 AM EST) AP Specimen 04/26/2017 10:5 2 AM EST 04/26/2017 12:34 PM EST Narrative [facility] - 04/26/2017 12:34 PM EST Specimen requisition ordered. ??Separate Pathology report to follow Resulting Agency Comment Spec In Lab Ria Menendez MD PATHOLOGY/CYTOLOGY ORDERABLES Performing Organization Address [facility]/ZIP Co de Phone Number [facility] [place] [address] * Specimen to Pathology (04/26/2017 10:52 AM EST) AP Specimen 04/26/2017 10:5 2 AM EST 04/26/2017 12:34 PM EST Narrative [facility] - 04/26/2017 12:34 PM EST Specimen requisition ordered. ??Separate Pathology report to follow Resulting Agency Comment Spec In Lab Ria Menendez MD PATHOLOGY/CYTOLOGY ORDERABLES Performing Organization Address City/[facility]/ZIP Co de Phone Number [facility] [place] [address] * Surgical Pathology Report (04/26/2017 10:50 AM EST) Surgical Pathology Report [id number] ? Location: 3T; [facility]; A The signing pathologist has (i) examined [...] AJCC 8th Edition CAP Annual Release ER, PA, and HER2 testing (performed on prior biopsy, [id number]): ER: Positive ( >90%, strong) PA: Positive ( >90%, strong) HER2 FISH: Negative Electronically signed by: ??Bill Zavala MD Verified: ??05/02/2017 ?Pathologist Performed at: ??-[facility] Dept. of Pathology, [place], [place] CLINICAL INFORMATION Specimen Submitted: A - [...] margin to lesion III; (8) slice III, benefits representative normal parenchyma, upper inner quadrant; (9) slice III, benefits representative normal parenchyma, lower inner quadrant; (10-11) slice IV, lesion IV to nearest deep-black margin; (12) slice V, lesion V to deep-black margin; (13) slice V, lesion V to deep- black margin; (14-15) slice , lesion V to closest deep-black margin, with clip in A14; (16-17) slice VII, lesion to nearest superficial-blue margin; (18) slice , benefits representative normal parenchyma, lower outer quadrant, with skin; (19) slice , benefits representative normal parenchyma, upper outer quadrant; (20) slice V, nipple base; (21) slice , benefits representative subareolar tissue ?? . (R21) Ischemic [...] (13) slice , lesional area abutting the ncik-mqg-hbxcq margin; (14) slice , lesional area abutting the superficial-blue margin; (15) slice VII, lesional area abutting the deep-black margin; (16) slice VII, lesional area abutting the superficial-blue margin; (17) slice VIII, lesional area to ofueqztzfcz-vsi-thoh margin; (18) slice IX, lesional area to lateral margin; (19) slice IV, nipple base; (20) slice , benefits representative skin . (R20) Ischemic Time: 170 minutes [facility] 04/26/2017 10:5 0 AM EST Ria Menendez MD PATHOLOGY/CYTOLOGY ORDERABLES [facility] [place] [address] documented in this encounter Visit Diagnoses Not on filedocumented in this encounter Administered Medications Inactive Administered Medications - up to 3 most recent administrations Medication Order MAR Action Action Date Dose Rate Site acetaminophen (TYLENOL) tablet 650 mg 650 mg, [...] Given 04/28/2017 5:02 PM EST 20 mg bacitracin ointment ONCE PRN, Starting on Sosa 04/26/17 at 2119, Until Sun05/01/17 at 1420, Intra-Operative (Intra-Procedure) Given 04/26/2017 11:33 PM EST 1 Tube 19- Surgical Site Given 04/26/2017 9:19 PM EST 1 Tube 19 - Surgical Site bisacodyl (DULCOLAX) suppository 10 mg 10 mg, [...] Given 05/01/2017 3:45 AM EDT 10 mg dilTIAZem (DILTIAZEM CD) ER capsule 240 [...] Given 04/28/2017 8:16 PM EST 40 mg ferrous gluconate tablet 324 mg 324 mg, [...] Given 04/29/2017 8:14 AM EDT 40 mg hydroCHLOROthiazide (HYDRODIURIL) tablet [...] Given 04/27/2017 12:29 AM EST 1 mg ibuprofen (ADVIL;MOTRIN) tablet 600 mg 600 mg, Oral, EVERY 6 HOURS PRN, Starting on 04/29/17 at 1156, Until Sun05/01/17 at 1420, Pain, Administer orally with milk or food to minimize GI irritation. Maximum dose of 3200 mg from all sources in 24 hours, Routine Given 05/01/2017 4:07 AM EDT 600 mg Given 04/30/2017 3:52 PM EDT 600 mg labetalol (NORMODYNE,TRANDATE) injection 20 mg 20 mg, Intravenous, EVERY 4 HOURS PRN, Starting on 04/28/17 at 2054, Until Sun05/01/17 at 1420, High Blood Pressure, SBP > 160, hold for HR < 60, Routine Lactobacillus (BACID) tablet 1 tablet 1 tablet, [...] Given 04/29/2017 5:04 AM EDT 112 mcg norethindrone (AYGESTIN) tablet 5 mg 5 mg, [...] minutes once if pain not relieved., Routine polyethylene glycol (MIRALAX) packet 17 g 17 [...] Given 04/30/2017 8:03 AM EDT 20 mEq silver sulfADIAZINE (SILVADENE) 1 % cream Topical [...] Given 04/30/2017 8:05 AM EDT 5 mLs valsartan (DIOVAN) tablet 160 mg 160 mg, Oral, DAILY, First dose on Sun04/27/17 at 1730, Until Discontinued, Routine Given 05/01/2017 8:16 AM EDT 160 mg Given 04/30/2017 8:02 AM EDT 160 mg Given 04/29/2017 8:15 AM EDT 160 mg verapamil (ISOPTIN) injection ONCE PRN, Starting on Sosa 04/26/17 at 1749, Until Sun05/01/17 at 1420, Administer over 2 Minutes, Intra-Operative (Intra-Procedure) Given 04/26/2017 5:49 PM EST 5 mg 19- Surgical Site documented in this encounter Active and Recently [...] RN)2007 (Given - Provider: Karley Easton RN) 08 (Given - Provider: Christy Tang RN)2004 (Given - Provider: Karley Easton RN) 08 (Given - Provider: Senia Meeks RN) enoxaparin (LOVENOX) injection 40 mg 40 mg, Subcutaneous, NIGHTLY, First dose on Sun04/27/17 at 2100, Until Discontinued, Routine 2008 (Given - Provider: Karley Easton RN) 2008 (Given - Provider: Karley Esaton RN) ferrous gluconate tablet 324 mg 324 [...] [place] Mann RN - Reason: Patient/family refused) 08 (Not Given - Provider: Christy Tang RN - Reason: Patient/family refused) 0900 (Not Given - Provider: Senia Meeks RN - Reason: Patient/family refused) potassium chloride (K-DUR/KLOR-CON) extended release tablet 20 mEq 20 mEq, Oral, 2 TIMES DAILY, First dose on Sun04/28/17 at 1000, Until Discontinued, 20 mEq tablet may be dissolved in water for administration, Routine 0813 (Given - Provider: [place] Mann RN)2007 (Given - Provider: Karley Easton RN) 08 (Given - Provider: Christy Tang RN)2004 (Given - Provider: Karley Easton RN) 0816 (Given - Provider: Senia Meeks RN) silver sulfADIAZINE (SILVADENE) 1 % cream Topical (Top), 2 TIMES DAILY, First dose on Sun04/30/17 at 1445, Until Discontinued, Apply to silvadene BID to umbilicus 1531 (Given - Provider: Christy Tang, JENNYFER)2010 (Given - Provider: Karley Easton RN) 0818 (Given - Provider: Senia Meeks RN) sodium chloride 0.9 % flush 5 mL 5 mL, Intravenous, 2 TIMES DAILY, First dose on Sun04/27/17 at 0100, Until Discontinued, Recovery (Recovery-Hospital Unit), Routine 0824 (Given - Provider: [place] Mann RN)2009 (Given - Provider: Karley Easton RN) 08 (Given - Provider: Christy Tang, JENNYFER)2009 (Given - Provider: Karley Easton RN) 817 (Given - Provider: Senia Meeks, JENNYFER) valsartan (DIOVAN) tablet 160 mg 160 mg, Oral, DAILY, First dose on Sun04/27/17 at 1730, Until Discontinued, Routine 0815 (Given - Provider: [place] Mann RN) 08 (Given - Provider: Christy Tang RN) 0816 [...] (Intra-Procedure), Routine 1030 (Given - Provider: Shannan Glaan RN)1035 (Given - Provider: Shannan Galan, JENNYFER)1045 (Given - Provider: Shannan Galan, JENNYFER)1050 (Given - Provider: Shannan Galan RN) HYDROmorphone (DILAUDID) injection 0.2-0.4 mg 0.2-0.4 mg, [...] Provider: Shannan Galan RN)1035 (Given - Provider: Shannna Galan, RN)1045 (Given - Provider: Shannan Galan, JENNYFER)1050 (Given - Provider: Shannan Galan RN) ondansetron (ZOFRAN) injection 4 mg(Linked Group 2) [...] JENNYFER) 0945 (See Alternative - Provider: Senia Meeks, JENNYFER) ondansetron (ZOFRAN) tablet 4 mg(Linked Group [...] Tang, JENNYFER) 0945 (Given - Provider: Senia Meeks, JENNYFER) oxyCODONE (ROXICODONE) immediate release tablet 10 mg(Linked Group 3) 10 mg, Oral, EVERY 4 HOURS PRN, Starting on 04/29/17 at 1034, Until 05/01/17 at 1420, Pain, moderate pain (4-6), May give additional 5 mg in 30 minutes once if pain not relieved., Routine 1044 (Given - Provider: [place] Mann RN)1507 (Given - Provider: aCrrie Mann RN)1852 (Given - Provider: [place] Mann RN)2319 (Given - Provider: Karley Easton RN) 0340 (Given - Provider: Karley Easton RN)0802 (Given - Provider: Christy Tang RN)1401 (Given - Provider: Christy Tang RN)1831 (Given - Provider: Christy Tang RN) 0003 (Given - Provider: Karley Easton RN)0407 (Given - Provider: Karley Easton RN)0816 (Given - Provider: Senia Meeks, JENNYFER) oxyCODONE (ROXICODONE) immediate release tablet 15 mg(Linked [...] Easton RN)0802 (See Alternative - Provider: Christy aTng RN)1401 (See Alternative - Provider: Christy Tang RN)1831 (See Alternative - Provider: Christy Tang RN) 0003 (See Alternative - Provider: Karley Easton RN)0407 (See Alternative - Provider: Karley Easton RN)0816 (See Alternative - Provider: Senia Meeks, JENNYFER) polyethylene glycol (MIRALAX) packet 17 g [...] Sun04/27/17 at 0038, Until 05/01/17 at 1420, flush, Flush pertains to all [...] Routine documented in this encounter Care 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
--- OUTSIDE RECORDS SUMMARY | 2023-09-07 11:34 | XMS_ITS | Encounter Summary ---
Author Organization [facility] Address [facility] [place] [address] Care Team Providers Care Raker Buffing Wheel Name Role Phone Trinh Coates MD Primary Care Provider [phone] Reason for Visit * Auth/Cert Specialty Diagnoses / Procedures Referred By Diamante marin Referred To Contact Diagnoses Left breast cancer Procedures PRO BREAST RECONSTRUC W FREE FLAP @BREAST RECONSTRUCTION W/ FREE FLAP, SUSAN (WRVU 42.58) Referral ID Status Reason Start Date Expiration Date Visits Re quested Visits Authorized [id number] 1 1 Encounter Details Date Type Department Care Team (Late st Contact Info) Description 04/26/2017 7:41 AM EST Anesthesia [place] [address] Jalil Givens MD [facility] [place] [address] Scooby Hanks MD [facility] [place] [address] Anesthesia Record Procedure Summary Procedure Name Responsible Anesthesiologist Anesthesia Start Time Anesthesia Stop Time @BREAST RECONSTRUCTION W/ FREE FLAP, SUSAN (WRVU 42.58) (Bilateral: Breast) Jlail Givens MD 04/26/17 0741 04/27/17 0104 Events Date Time Event Comment 04/26/2017 0721 0741 AN Verify 0741 Start 0741 An Start Data 0745 An Induction 0747 An Intubation 0811 Anesthesia Ready 0855 Procedure Start [address] Menendez started her portion of the procedure. 1256 Quick Note A-line dampened , no longer drawing. Disconnected and using NIBP for pressures due to inaccuracy 1450 Quick Note Surgical team i dentified small hole in pleura. Sealed with tisseel [address] Lara in room to assist in closing small pleural hole. 1657 Handoff Intra-procedure anesthesia care was transferred after review of the patient's history, current anesthetic/surgical status and plan, according to the ANES Provider Handoff Checklist. 1659 Handoff Intra-procedure anesthesia care was transferred after review of the patient's history, current anesthetic/surgical status and plan, according to the ANES Provider Handoff Checklist. 1845 Handoff Intra-procedure anesthesia care was transferred after review of the patient's history, current anesthetic/surgical status and plan, according to the ANES Provider Handoff Checklist. 2011 Break/Relief In Jalil Givens MD 2203 Quick Note Per surgeon lucy patterson, raising SBP to 140 in attempts to improve perfusion through flap due to concerns for vasospasm. 2233 Break/Relief In Jalil Givens MD 04/27/2017 0043 Extubation/LMA Out 0043 an stop data 0104 Recovery or ICU Handoff Adriana ent care was transferred to the destination unit staff after review of the patient's medical history, current anesthetic/surgical status and plan, according to the Provider Handoff Checklist. 0104 Stop Meds Name Total Midazolam 2 mg fentaNYL 100 mcg IV Lidocaine 100 mg Propofol 240 mg Rocuronium 250 mg ePHEDrine 35 mg Ondansetron 8 mg Dexamethasone 8 mg Neostigmine 5 mg Glycopyrrolate 0.8 mg clindamycin (CLEOCIN) 900mg in dextrose 5% 50mL 2,700 mg Propofol INF 2,213.56 mg Ketamine 10 mg/mL 170 mg Dexmedetomidine 12 mcg HYDROmorphone (DILAUDID) injection 0.2-0 .4 mg 1 mg Lactated Ringers 2,600 mL Lactated Ringers 3,000 mL * Agents Name O2 Air N2O Isoflurane (et) * Blood No blood administrations on file. Lines, Drains, and Airways Type Details Placement Removal (RETIRED) Peripheral IV Line - Single Lumen 04/11/17; 1055; median cubital vein (antecubital fossa), right; ntkl-ttj-ljubck catheter system; 1 in length, 20 gauge; 05/25/17; 1304 04/11/17 1055 by Venessa Posadas 05/25/17 1304 by Alejandra Valencia RN (RETIRED) Peripheral IV Line - Single Lumen 04/26/17; 0636; metacarpal vein (top of hand), right; lado-ejf-mnolta catheter system; 20 gauge, 1 in length; Homa BURGER; intradermal injection, tolerated well, appears comfortable; (not present at arrival to floor); 04/27/17; 18104/26/17 0636 by Poonam Torrez RN 04/27/17 181 by Salina Jackson RN ETT Mask Ventilation: Adjunct (2); ETT Type: Cuffed, Oral; ETT Size: 7.5 mm; Mac Blade: 3; Notes: Asleep, Pre-O2, Cricoid Pressure, Stylette; Attempts: 1; Laryngoscopy Grade: 1; ETT Placement Verified By: Auscultation, Capnometry, Visual; Secured at Teeth: 21 cm; Inserted by: Sneha Jaramillo CRNA; Removal Date: 04/26/17; Removal Time: 1630 04/26/17 0747 by Sneha Jaramillo, SUPERVISOR IRRIGATION 04/26/17 1630 by Eddi Ruiz MD Arterial Line 04/26/17; 0755; radi al artery, right; 20 gauge; Scooby Hanks MD; Sterile Prep, Sterile Gloves; removed in OR prior to arrival in PACU; no longer indicated; 04/26/17; 1800 04/26/17 0755 by Sneha aJramillo, SUPERVISOR IRRIGATION 04/26/17 1800 by Veronica Gardner RN Urethral Catheter 04/26/17; 0800; Surg dany longer than 2 hours; Physician order; indwelling catheter with core temperature probe; latex, silver hydrogel antimicrobial coated; 14; inserted at this facility; 1; 5; 10; drainage bag to dependent drainage; 04/27/17; 1718 04/26/17 0800 by Rochelle Melendez RN 04/27/17 1718 by Debby Lucas RN (RETIRED) Peripheral IV Line - Single Lumen 04/26/17; 0803; median cubital vein (antecubital fossa), right; iayz-gwu-llnbtm catheter system; 18 gauge; Sneha Jaramillo SUPERVISOR IRRIGATION; 04/30/17; 1002 04/26/17 0803 by Sneha Jaramillo, SUPERVISOR IRRIGATION 04/30/17 1002 by Ailyn Bryson RN Incision 04/26/17; 0855; abdo men; 09/06/17; 1312 04/26/17 0855 by Rochelle Melendez RN 09/06/17 1312 by Joyce Qureshi RN Incision 04/26/17; 1027; [address]; 09/06/17; 1312 04/26/17 1027 by Rochelle Melendez RN 09/06/17 1312 by Joyce Qureshi RN Incision 04/26/17; 1027; [address]; 09/06/17; 1312 04/26/17 1027 by Rochelle Melendez RN 09/06/17 1312 by Joyce Qureshi RN Drain/Device Site 04/26/17; 1550; Righ t; chest; collapsible closed device; Sterile technique, Sterile prep and drape; 10Fr luis drain.; 04/26/17; 213404/26/17 1550 by Rochelle Melendez RN 04/26/17 2135 by Rochelle Melendez RN Drain/Device Site 04/26/17; 1930; Left ; abdomen; collapsible closed device; Sterile prep and drape, Sterile technique; 19Fr luis drain.; 4; 05/25/17; 1305 04/26/17 1930 by Rochelle Melendez RN 05/25/17 1305 by Alejandra Valencia RN Drain/Device Site 04/26/17; 1930; Righ t; abdomen; collapsible closed device; Sterile technique, Sterile prep and drape; 19Fr luis drain.; 2; 06/22/17; 1716 04/26/17 1930 by Rochelle Melendez RN 06/22/17 1716 by Vandana Ba RN Drain/Device Site 04/26/17; 1930; Left ; breast; collapsible closed device; Sterile prep and drape, Sterile technique; 15Fr luis drain.; 3; 05/25/17; 1305 04/26/17 1930 by Rochelle Melendez RN 05/25/17 1305 by Alejandra Valencia RN Incision 04/26/17; 2257; abdo men; 05/25/17; 1309 04/26/17 2257 by Tahira Aponte RN 05/25/17 1309 by Alejandra Valencia RN documented in this encounter Social History [...] OR Notes * Anesthesia Postprocedure Evaluation - Jalil Givens MD - 04/27/2017 1:43 AM EST [facility] Department of Anesthesiology Post-procedure Note Patient: Wendy Sandoval Procedure Summary Date Anesthesia Start Anesthesia Stop Room / Location 04/26/17 0741 0104 (04/27/17) [facility] OR / [facility] OR Procedure Diagnosis Surgeon Responsible Provider @BREAST RECONSTRUCTION W/ FREE FLAP, SUSAN (WRVU 42.58) (Bilateral Breast); EXCISION OF RIB, PARTIAL (WRVU 7.26) (Bilateral Chest); BREAST RECONSTRUCTION, IMMEDIATE OR DELAYED, W/ TISSUE DEICER KIT ASSEMBLER, INCLUDING SUBSEQUENT EXPANSION (WRVU 18.5) (Bilateral Breast); FTSG, FREE, DIR CLOSE DONOR SITE, TRUNK, 20 SQ CM OR LESS (WRVU 9.15) (Bilateral Trunk); MASTECTOMY, SIMPLE, COMPLETE-SUSAN (WRVU 15.85) (Bilateral Breast); MODIFIER , NIPPLE SPARING (Bilateral Breast); LYMPHADENECTOMY, AXILLARY, COMPLETE (WRVU 13.87) (Left Axilla) (Left breast cancer) Andre Gimenez MD; Jolie Menendez MD Chow, Vinca W, MD All Anesthesia Providers: Anesthesiologist: Jalil Givens MD; Scooby Hanks MD SUPERVISOR IRRIGATION: Sneha Jaramillo CRNA; Scooby Daniels CRNA; Wang Medrano CRNA Most Recent Vitals: 04/27/17129 BP: 158/81 Pulse: (!) 110 Resp: 15 Temp: SpO2: 92% Pain 0 (04/27/17129) Patient Location: PACU/[facility] Level of Consciousness: Conscious but Sleepy Pain Management: Satisfactory Analgesia PONV: None Cardiovascular Status: At Baseline and Hemodynamically Stable Respiratory Status: At Baseline and Room Air Postoperative Fluid Status: Intravascular EUvolemia Possible Anesthetic Complications: NONE apparent at time of evaluation Final Primary Anesthesia Type: General (The anesthetic type performed was the same as planned.) Comments: Patient sleeping comfortably, pain well-controlled, vitals stable. Jalil Givens MD * Anesthesia Preprocedure Evaluation - Scooby Hanks MD - 04/25/2017 3:19 PM EST Pre-Anesthesia Evaluation for: Wendy Sandoval a 51 y.o. female. Procedure(s): @BREAST RECONSTRUCTION W/ FREE FLAP, SUSAN (WRVU 42.58) EXCISION OF RIB, PARTIAL (WRVU 7.26) MASTECTOMY, SIMPLE, COMPLETE-SUSAN (WRVU 15.85) MODIFIER , NIPPLE SPARING LYMPHADENECTOMY, AXILLARY, COMPLETE (WRVU 13.87) Patient Active Problem List Diagnosis ??? Malignant neoplasm of upper-outer quadrant [...] MD at [facility] MAIN OR ??? PRO EXPLORE PARATHYROID GLANDS N/A 11/02/2015 PARATHYROIDECTOMY OR EXPLORATION OF PARATHYROID(S) performed by Valentina Lucas MD at [facility] MAIN OR ??? PRO THYMECTOMY, TRANSCERVICAL N/A 11/02/2015 THYMECTOMY, TRANSCERVICAL APPROACH performed by Valentina Lucas MD at [facility] MAIN OR ??? SHOULDER SURGERY Left [...] intravenous induction 51 yo female presenting for bilateral mastectomy and breast reconstruction with free flap. History significant for htn, hld, JACQUELYN, overweight, hypothyroidism, and s/p parathyroidectomy, and now with breast CA. Plan for GA w/ ETT, a-line Region - Other Informed Consent: Anesthetic plan and risks discussed with patient. PAT Staff Note documented in this encounter Miscellaneous Notes * Addendum Note - Wang Medrano CRNA - 04/30/2017 7:55 AM EDT Addendum created 04/30/17 0755 by Wang Medrano CRNA Anesthesia Intra Meds edited documented in this encounter Plan of Treatment Upcoming Encounters Date Type Department Care Team (Late st Contact Info) Description 01/22/2024 10:30 AM EST Appointment Mammography/[place] [address] Ladi Mendosa MD [facility] HEMATOLOGY/[place] [address] 01/30/2024 11:30 AM EST Office Visit Dermatology at [facility] [address] [place] [address] Nilda Luis MD [facility] DR [place] [address] 02/15/2024 9:30 AM EST [place] [address] [place] [address] documented as of this encounter Visit Diagnoses Not on filedocumented in this encounter Administered Medications Inactive Administered Medications - up to 3 most recent administrations Medication Order MAR Action Action Date Dose Rate Site clindamycin (CLEOCIN) 900mg in dextrose 5% 50mL 900 mg, Intravenous, ONCE, 1 dose, On Sosa 04/26/17 at 0615, Administer over 30 Minutes, Give in OR, Indication for (Active or Suspected): Prophylaxis Given 04/26/2017 7:56 PM EST 900 mg Given 04/26/2017 2:02 PM EST 900 mg Given 04/26/2017 8:10 AM EST 900 mg dexamethasone (DECADRON) injection PRN, Starting on Sosa 04/26/17 at 0745, Until Sun04/27/17 at 0104, Anesthesia Intra-op, Routine Given 04/26/2017 7:45 AM EST 8 mg dexmedetomidine (PRECEDEX) injection PRN, Starting on Sosa 04/26/17 at 2243, Until Sun04/27/17 at 0104, Anesthesia Intra-op, Routine Given 04/26/2017 11:00 PM EST 4 mcg Given 04/26/2017 10:47 PM EST 4 mcg Given 04/26/2017 10:43 PM EST 4 mcg ePHEDrine 5 mg/mL multi-dose injection PRN, Starting on Sosa 04/26/17 at 0833, Until Sun04/27/17 at 0104, Anesthesia Intra-op, Routine Given 04/26/2017 10:04 PM EST 15 mg Given 04/26/2017 9:57 PM EST 15 mg Given 04/26/2017 8:33 AM EST 5 mg fentaNYL 50 mcg/mL multi-dose injection PRN, Starting on Sosa 04/26/17 at 0745, Until Sun04/27/17 at 0104, Pain, Anesthesia Intra-op, Routine Given 04/26/2017 7:57 AM EST 50 mcg Given 04/26/2017 7:45 AM EST 50 mcg glycopyrrolate (ROBINUL) multi-dose injection PRN, Starting on Sosa 04/26/17 at 0836, Until Sun04/27/17 at 0104, Anesthesia Intra-op, Routine Given 04/26/2017 11:57 PM EST 0.6 mg Given 04/26/2017 8:40 AM EST 0.1 mg Given 04/26/2017 8:36 AM EST 0.1 mg HYDROmorphone (DILAUDID) injection 0.2-0.4 mg 0.2-0.4 mg, Intravenous, EVERY 2 HOURS PRN, Starting on Sun04/27/17 at 1513, Until Sun05/01/17 at 1420, Pain, for breakthrough pain not controlled with oral medication give 0.2mg for pain 1-5, give 0.4mg for pain 6-10., Routine Given 04/27/2017 12:29 AM EST 1 mg ketamine (KETALAR) 10 mg/mL bolus injection (Anesthesia) PRN, Starting on Sosa 04/26/17 at 0855, Until Sun04/27/17 at 0104, Anesthesia Intra-op Given 04/26/2017 9:45 PM EST 20 m g Given 04/26/2017 6:47 PM EST 10 mg Given 04/26/2017 5:49 PM EST 10 mg lactated Ringers infusion CONTINUOUS PRN, Starting on Sosa 04/26/17 at 0741, Until Sun04/27/17 at 0104, Anesthesia Intra-op New Bag 04/26/2017 12:[address] New Bag 04/26/2017 9:08 AM EST New Bag 04/26/2017 7:41 AM EST lactated Ringers infusion CONTINUOUS PRN, Starting on Sosa 04/26/17 at 0752, Until Sun04/27/17 at 0104, Anesthesia Intra-op New Bag 04/26/2017 1:54 PM ES T New Bag 04/26/2017 9:08 AM EST New Bag 04/26/2017 7:52 AM EST lidocaine (PF) (XYLOCAINE) 100 mg/5 mL (2 %) injection PRN, Starting on Sosa 04/26/17 at 0834, Until Sun04/27/17 at 0104, Anesthesia Intra-op, Routine Given 04/26/2017 7:45 AM EST 100 mg midazolam (PF) (VERSED) 1 mg/mL multi-dose injection PRN, Starting on Sosa 04/26/17 at 0741, Until Sun04/27/17 at 0104, Sleep, Anesthesia Intra-op, Routine Given 04/26/2017 7:41 AM EST 2 mg neostigmine (BLOXIVERZ) injection PRN, Starting on Sosa 04/26/17 at 1127, Until Sun04/27/17 at 0104, Anesthesia Intra-op, Routine Given 04/26/2017 11:57 PM EST 5 mg ondansetron (ZOFRAN) injection PRN, Starting on Sosa 04/26/17 at 0800, Until Sun04/27/17 at 0104, Nausea, Anesthesia Intra-op, Routine Given 04/27/2017 12:01 AM EST 4 mg Given 04/26/2017 8:00 AM EST 4 mg propofol (DIPRIVAN) 10 mg/mL bolus injection (Anesthesia) PRN, Starting on Sosa 04/26/17 at 0745, Until Sun04/27/17 at 0104, Anesthesia Intra-op Given 04/26/2017 10:41 PM EST 30 mg Given 04/26/2017 10:38 PM EST 10 mg Given 04/26/2017 7:45 AM EST 200 mg propofol (DIPRIVAN) infusion CONTINUOUS PRN, Starting on Sosa 04/26/17 at 0810, Until Sun04/27/17 at 0104, Anesthesia Intra-op, Routine Rate/Dose Change 04/26/2017 10:57 PM EST 30 mcg/kg/min 13.8 mL/hr Rate/Dose Change 04/26/2017 10:39 PM EST 40 mcg/kg/min 18. 4 mL/hr New Bag 04/26/2017 8:10 AM EST 30 mcg/kg/min 13.8 mL/hr rocuronium (ZEMURON) multi-dose injection PRN, Starting on Sosa 04/26/17 at 0745, Until Sun04/27/17 at 0104, Anesthesia Intra-op, Routine Given 04/26/2017 10:39 PM EST 20 mg Given 04/26/2017 9:18 PM EST 10 mg Given 04/26/2017 7:45 PM EST 20 mg documented in this encounter Care Teams Raker Buffing Wheel Relationship Specialty Start Date End Date Trinh Coates MD [address] [place] [address] PCP - General 01/11/10 documented as of this encounter
--- OUTSIDE RECORDS SUMMARY | 2023-09-07 11:34 | XMS_ITS | Encounter Summary ---
Author Organization [facility] [place] [address] Care Team Providers Care Supervisor Beehive Kiln Name Role Phone Trinh Coates MD Primary Care Provider [phone] Reason for Visit * Diagnostic Test (Routine) - Closed Specialty Diagnoses / Procedures Referred By Diamante marin Referred To Contact Radiology Diagnoses Malignant neoplasm of left female breast, unspecified estrogen receptor status, unspecified site of breast Procedures CT Chest Abdomen Pelvis w Contrast (Generic) Jolie Menendez MD [facility] [place] [address] [facility] [place] [address] Referral ID Status Reason Start Date Expiration Date V isits Requested Visits Authorized [id number] Closed Specialty Service Requested 04/04/2017 05/19/2017 3 3 Encounter Details Date Type Department Care Team (Latest Contact Info) Description 04/11/2017 1:28 PM EST - 04/11/2017 11:59 PM EST Hospital Encounter [place] [address] Jolie Menendez MD [facility] [place] [address] Discharge Disposition: Home Social History [...] 10:30 AM EST Appointment Mammography/[place] [phone] Ladi Mendosa MD [facility] DR HEMATOLOGY/[place] [address] 01/30/2024 11:30 AM EST Office Visit Dermatology at [address] [address] Nilda Luis MD [facility] [address] [place] [address] 02/15/2024 9:30 AM EST Appointment [place] [address] Joanna Watts MD [place], [place] [id number] documented as of this encounter Procedures Procedure Name Priority Date/Time Associated Diagnosis Comments NM BONE SCAN WHOLE BODY Routine 04/11/2017 2:00 PM EST Malignant neoplasm of left female breast, unspecified estrogen receptor status, unspecified site of breast documented in this encounter Results * NM Whole Body Bone Scan (04/11/2017 2:00 PM EST) Anatomical Region Laterality Modality Nuclear Medicine Impressions 04/11/2017 4:59 PM EST No skeletal metastasis. I have personally reviewed the image(s) and the residents interpretation and agree with the findings, Dinesh Kearney at 04/11/2017 4:59 PM Narrative 04/11/2017 4:59 PM EST EXAMINATION: NM WHOLE BODY BONE SCAN CLINICAL HISTORY: locally advanced breast cancer TECHNIQUE: Three hours following the intravenous administration of 26.1 mCi of technetium-99m MDP, planar images of the skeleton in anterior and posterior projection were obtained. COMPARISON: None FINDINGS: Facet arthritic reaction is seen in the right mid cervical spine. No other significant osseous abnormality. The kidneys and bladder are unremarkable. Procedure Note Dinesh Kearney MD - 04/11/2017 EXAMINATION: NM WHOLE BODY BONE SCAN CLINICAL HISTORY: locally advanced breast cancer TECHNIQUE: Three hours following the intravenous administration of 26.1mCi of technetium-99m MDP, planar images of the skeleton in anterior andposterior projection were obtained. COMPARISON: None FINDINGS: Facet arthritic reaction is seen in the right mid cervical spine. Noother significant osseous abnormality. The kidneys and bladder are unremarkable. IMPRESSION No skeletal metastasis. I have personally reviewed the image(s) and the residents interpretationand agree with the findings, Dinesh Kearney at 04/11/2017 4:59 PM Jolie Menendez MD IMG NM ORDERABLES documented in this encounter Visit Diagnoses Not on filedocumented in this encounter Care Teams Supervisor Beehive Kiln Relationship Specialty Start Date End Date Trinh Coates MD [address] [place] [address] PCP - General 01/11/10 documented as of this encounter
--- OUTSIDE RECORDS SUMMARY | 2023-09-07 11:35 | XMS_ITS | Encounter Summary ---
Author Organization [facility] [place] [address] Care Team Providers Care Senior Bi Architect Name Role Phone Trinh Coates MD Primary Care Provider [phone] Reason for Referral * Diagnostic Test (Routine) - Specialty Diagnoses / Procedures Referred By Diamante marin Referred To Contact Radiology Diagnoses Malignant neoplasm of upper-outer quadrant of left breast in female, estrogen receptor positive Procedures CT Angiogram Abdomen & Pelvis CT Angiogram Abdomen Mali Lakhani MD [facility] [place] [address] [facility] [place] [address] Referral ID Status Reason Start Date Expiration Date Visits Requested Visits Authorized [id number] Specialty Service Requested 04/05/2017 05/19/2017 1 1 Reason for Visit * Reason Comments Advice Only breast recon consult Encounter Details Date Type Department Care Team (Late st Contact Info) Description 04/05/2017 10:00 AM EST Office Visit [place] [address] Mali Lakhani MD [facility] [place] [address] Malignant neoplasm of upper-outer quadrant [...] - Inhaled Oxygen Concentration - - Weight 76.7 kg (169 lb 1.5 oz) 04/05/2017 9:59 AM EST per 03/29/17 apppt Height 154.9 cm (5' 0.98) 04/05/2017 9 :59 AM EST per 03/29/17 appt Body Mass Index 31.97 04/05/2017 9:59 AM EST documented in this encounter Patient Instructions * Patient Instructions* Gerri Kendrick RN - 04/05/2017 10:00 AM EST You were given written and verbal preoperative instructions today. To prepare for your upcoming surgery, please review the Pre-Operative Instruction brochure that youwere given at today's appointment. Feel free to call our office [phone] if you have any questions or concerns. We monitor the phones from 8-5 Sunday through Sunday. documented in this encounter Progress Notes * Mali Lakhani MD - 04/05/2017 10:00 AM EST Plastic Surgery Consultation Note Provider: Mali Lakhani MD PCP: Trinh Coates MD Requesting surgeon: Dr. Menendez CC: To discuss breast reconstruction HPI: Her breast surgeon requested this consultation for Wendy Sandoval, a 51 y.o. woman with breast cancer, to discuss options for breast reconstruction. She was accompanied by her , Alessandro, for today's visit. Her breast cancer history began with an [...] unsure if mesh was placed, and 2 C- sections in the past. The patient reports she currently has a kidney stone. The patienthad difficulty with anesthesia during 1 surgery, but her last surgeries at [facility] went very smoothly with anesthesia. She currently wears a size C-cup bra and wishes to be the same size after surgery. The patient's mother, aunt, cousin, and her maternal aunt have all had breast cancer. She denies smoking cigarettes. 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 The [employer] informational link on breast reconstruction was received: Yes. And viewed: Yes If viewed, was the video helpful yes Her intitial preference is for a bilateral mastectomy and autologous reconstruction. Past Medical History: Diagnosis Date ??? Fibrocystic [...] LARYNGEAL performed by Valentina Lucas MD at [facility] MAIN OR ??? PRO EXPLORE PARATHYROID GLANDS N/A 11/02/2015 PARATHYROIDECTOMY OR EXPLORATION OF PARATHYROID(S) performed by Valentina Lucas MD at [facility] MAIN OR ??? PRO THYMECTOMY, TRANSCERVICAL [...] Not on file Social History Narrative Family History Problem Relation Age of Onset [...] his 60's ??? Ovarian Cancer Neg Hx ROS: HEENT, GI, /Renal, Psych, Card, Pulm, Endo, Heme, Immun, Neuro: negative Examination: Ht 154.9 cm (5' 0.98) Comment: per 02/26/17 appt General: On my examination today, Ms. Wendy Sandoval appears to be in good health. Her emotionaloutlook is positive and she asked appropriate questions throughout the visit. Breasts C-cup size breasts Central xyphoid area skin lesion 1+ axillary rolls No nipple retraction or discharge Anatomic Breast Measurements: Right Left Ptosis III III Notch-nipple (cm) 28.5 27 IMF to nipple (cm) 8 8 Base Diameter (cm) 12-13 Abdomen Repaired umbilical hernia, no obvious recurrence Appears to be done through an open incision that is well healed Well healed pfannenstiel type incision Enough abdominal tissue to make bilateral breasts of similar size psoriatic lesion along left and right hip Well healed periumbilical scar Some distortion of umbilical remnant Impression: Wendy Sandoval is a 51 y.o. patient with new diagnosis of breast cancer. After reviewing all options for breast reconstruction or symmetry, she is strongly inclined to pursue: Question: Right Left Plan Surgical treatment requested? X X SALVADOR flaps Delayed inset 3-4 days later? Symmetry Surgery? No Reconstruction Surgical Delay with ligation necessary pre-op necessary no Medical clearance is necessary no Labs are necessary pre op no We are ready to schedule surgery yes Given her medical and surgical history, she is a reasonable candidate for this choice of breast reconstruction. We discussed both implant and autologous options including TRAM flaps, SALVADOR, latissimus dorsi flapsand implants both immediate and two staged with tissue expanders and alloderm. I assured the patient that we may proceed with bilateral SALVADOR flaps to reconstruct her bilateral breasts of similar sizeafter her bilateral mastectomy. I recommend a CT angiogram of her abdomen prior to SALVADOR flap to assess for deep epigastic perforators off abdominal wall and rectus sheath due to her prior abdominal surgeries. The patient is already having 2 CT scans on 04/11/17, so it would be ideal to be performed at the same time. I recommend FNGs for the patient due to the ptosis of her breasts. The patient is understanding that if the SALVADOR flaps fail she will require an alternative reconstruction option including the option of implant based reconstruction with an buccaro placed initially. The longevity ofimplants were discussed including the potential need for revisions or replacements in the future. The recovery expectations of implant reconstruction versus SALVADOR flaps were explained. The patient is understanding that she may require revision surgeries with any reconstruction option she chooses. The post-operative care and restrictions for the SALVADOR procedure were discussed including the need for 3-5 nights over in the hospital, placement of drains, and 4-6 weeks off of vigorous activity. We discussed potential risks and complications which include but are not limited to: Pain, bleeding, infection, scarring, asymmetry, hematoma, seroma, poor cosmetic outcome, failure ofprocedure, pneumothorax, loss of umbilicus, possible need for revision, damage to adjacent structures. The patient wishes to proceed and surgical consent was signed. Prior to her visit today she watched the [employer] informational link on breast reconstruction. I also provided her with a comprehensive packet of printed information includin. ASPS brochures and informed consent documents on breast reduction; TRAM and latissimus dorsi flap reconstruction; and implant reconstruction 2. Postoperative brochures on what to expect after either flap reconstruction, breast implantation and breast reduction 3. Brochures on medications that may increase the risk of bleeding after surgery and on the possible side effects or drug interactions with herbal or dietary supplements 4. Instructions on postmastectomy exercises; postoperative pain management; how to access to myD-H;and an ASPS brochure on making an informed decision 5. Recommended web sites including: www.surgery.med.[facility] www.pxlhbavtjoyfdt451.[email or web address] www.breastimplantsafety.org www.breasthealthonline.com 6. Brochure on the Section of Plastic Surgery's policy on cigarette smoking 7. My business card including contact information and information on how to access [employer]. The risks of these procedures were covered either in the [place] link , the informational materials and/or in our discussion. Risks covered included the following. General risks of surgery including reconstruction and mastectomy: Bleeding; delayed healing; asymmetry; tissue or flap loss; delayed inset or need for revision; immediate versus staged reconstructionof nipple-areolar complex. Latissimus dorsi complications: asymmetry; loss of terminal extension of the arm; donor scar; prolonged drainage and high rate of seroma formation. TRAM Flap: Flap loss or failure, fat necrosis, hernia or bulge, loss of umbilical remnant, need forrevision. Free flap or SALVADOR flap complications: Flap loss or failure, microvascular anastomotic complications, fat necrosis, hernia or bulge, pneumothorax, loss of umbilical remnant, need for revision. Reduction mammaplasty/Mastopexy complications: tissue or nipple loss; fat necrosis. Implant related complications: The specific risks of implants were reviewed and she was provided with an ASPS informed consent document, the IOM report summary on the safety of silicone implants and the [place] brochure: Silicone implants, making an informed decision. We reviewed the general risksof implant reconstruction including: upper pole fullness; asymmetry; implant rupture, migration, infection, or contracture; visible rippling or waviness from the implant; likely need for revision or further surgery in the future. She is ready to proceed with a bilateral mastectomy and SALVADOR reconstruction in coordination with Dr. Menendez. She has considered all options provided to her and is ready to proceed with surgery. Milad communicate this plan to Dr. Trinh Coates MD, and her general surgeon, Dr. Menendez. Plan: Schedule for surgery CT angiogram Surgical Grid: Surgeon: Ammy Duration: 12 hours Timeframe: Coordinated Anticipate 3-5 over night admission Coordinated with: Dr. Menendez Procedure: Breast reconstruction CPT: SALVADOR: 56375, rib resection: 44562 Surgical site: Breast, abdomen Side: Bilateral Anesthesia: General Follow up: 2 weeks after discharge with AEE or NSO PAT: No Pre-auth needed for 2 weeks of post-op Sanket Scott, am acting as scribe for Dr. Lakhani. All work documented was performed by Dr. Lakhani. ???I performed the above scribed service and agree with the accuracy of the note?? MALI LAKHANI MD * Gerri Kendrick RN - 04/05/2017 10:00 AM EST Pre-Op Teaching for Surgery Surgery: Bilat. FRANCO Written and verbal pre-operative instructions were given and reviewed with patient. Patient was advised to discontinue use of NSAIDS and aspirin products 14 days prior to surgery unless otherwise advised by patient's PCP/Audio Visual Production Specialist for cardiac symptoms, to perform the pre-op scrub, and coordinate ride home following surgery. Smoking status and medications were further reviewed to rule out/address current use of Nicotine, Coumadin, Plavix, Estrogen or Tamoxifen. Photos were taken Patient was told to call the clinic for any questions or concerns prior to surgery. documented in this encounter Plan of Treatment Upcoming Encounters Date Type Department Care Team (Late st Contact Info) Description 01/22/2024 10:30 AM EST Appointment Mammography/[place] [address] Ladi Mendosa MD [facility] HEMATOLOGY/[place] [address] 01/30/2024 11:30 AM EST Office Visit Dermatology at [address] [address] Nilda Luis MD [facility] DR [place] [address] 02/15/2024 9:30 AM EST Appointment [place] [phone] [place] [address] documented as of this encounter Procedures Procedure Name Priority Date/Time Associated Diagnosis Comments BREAST RECONSTRUCTION W/ FREE FLAP, SUSAN Routine 04/05/2017 10:36 AM EST documented in this encounter Results [...] deep surface of the anterior perimbilicalabdominal wall. Mali Lakhani MD IMG CT ORDERABLES documented in this encounter Visit Diagnoses Diagnosis Malignant neoplasm of upper-outer quadrant of left breast in female, estrogen receptor positive Malignant neoplasm of left female breast, unspecified estrogen receptor status, unspecified site of breast Malignant neoplasm of upper-outer quadrant of left breast in female, estrogen receptor positive documented in this encounter Care Teams Senior Bi Architect Relationship Specialty Start Date End Date Trinh Coates MD [address] [place] [address] PCP - General 01/11/10 documented as of this encounter
--- OUTSIDE RECORDS SUMMARY | 2023-09-07 11:35 | XMS_ITS | Encounter Summary ---
Author Organization [facility] Address [facility] [place] [address] Care Team Providers Care Chili Powder Mixer Name Role Phone Trinh Coates MD Primary Care Provider [phone] Encounter Details Date Type Department Care Team (Late st Contact Info) Description 03/29/2017 Notes [place] [address] Jhonatan Resendiz MD [facility] [place] [address] Social History Tobacco Use Types Packs/Day Years Used Date Smoking Tobacco: Former Smokeless Tobacco: Never Alcohol Use Standard Drinks/Week Comments Yes 0 (1 standard drink = 0.6 oz pur e alcohol) socially Sex and Gender Information Value Date Recorded Sex Assigned at Not on file Gender Identity Not on file Sexual Orientation Not on file documented as of this encounter Progress Notes * Jhonatan Resendiz MD - 03/29/2017 2:55 PM EST Pre-procedure note for needle breast biopsies performed in radiology. Procedure date: Today Procedure type: left breast ultrasound guided biopsy Allergies: Pcn [penicillins] and Zoloft [sertraline] Medications: Current Outpatient Prescriptions: ??? valsartan-hydrochlorothiazide (DIOVAN-HCT) 160-12.5 mg Tablet, Take [...] by mouth daily., Disp: , Rfl: ??? norethindrone (AYGESTIN) [...] tablet, 2 times daily., Disp: , Rfl: Anticoagulation status: none stopped on: N/A Imaging reviewed and procedural plan approved by Dr. JHONATAN RESENDIZ MD Pre-procedure note for needle breast biopsies performed in radiology. Procedure date: Today Procedure type: left breast ultrasound guided biopsy Allergies: Pcn [penicillins] and Zoloft [sertraline] Medications: Current Outpatient Prescriptions: ??? valsartan-hydrochlorothiazide (DIOVAN-HCT) 160-12.5 mg Tablet, Take [...] by mouth daily., Disp: , Rfl: ??? norethindrone (AYGESTIN) [...] tablet, 2 times daily., Disp: , Rfl: Anticoagulation status: none stopped on: N/A Imaging reviewed and procedural plan approved by Dr. JHONATAN RESENDIZ MD documented in this encounter Plan of Treatment Upcoming Encounters Date Type Department Care Team (Late st Contact Info) Description 01/22/2024 10:30 AM EST Appointment Mammography/[place] [phone] Ladi Mendosa MD [facility] HEMATOLOGY/[place] [address] 01/30/2024 11:30 AM EST Office Visit [address]atology [address] [place] [address] Nilda Luis MD [facility] DR LIDIA [place] [address] 02/15/2024 9:30 AM EST Appointment [place] [address] [place] [address] documented as of this encounter Visit Diagnoses Not on filedocumented in this encounter Care Teams Chili Powder Mixer Relationship Specialty Start Date End Date Trinh Coates MD [facility] [address] [facility] [address] [place] [address] PCP - General 01/11/10 documented as of this encounter
--- OUTSIDE RECORDS SUMMARY | 2023-09-07 11:35 | XMS_ITS | Encounter Summary ---
Author Organization [facility] Address [facility] [place] [address] Care Team Providers Care Foundation Assistant Name Role Phone Trinh Coates MD Primary Care Provider [phone] Encounter Details Date Type Department Care Team (Late st Contact Info) Description 11/15/2015 Telephone [place] [address] Venessa Amato MD [facility] [place] [address] Social History Tobacco Use Types Packs/Day Years [...] encounter Miscellaneous Notes * Telephone Encounter - Venessa Amato - 11/15/2015 10:18 AM EDT General Surgery Consult Resident Telephone Note Called this AM by Ms. Sandoval regarding dizziness this morning. She describes waking up and having trouble sitting up. She said that every time she moves her head the room spins. She also endorses a feeling of a weight on her chest around her collarbone, as well as some subjective difficulty taking deep breaths. Her came home and was able to help her sit up, but she is still having dizziness with head movement. She denies fever/chills. She is 2 weeks s/p parathyroidectomy (11/01) with Dr. Lucas. Her last calcium level was normal (8.7) and she is on supplementation. In light of her recent surgery, however, I advised her to seek evaluation and labs. She [place] from [facility] so I recommended that she present to her local ED [facility]. She is in agreement with this plan. Venessa Amato MD PGY 2 General Surgery Pgr [phone] documented in this encounter Plan of Treatment Upcoming Encounters Date Type Department Care Team (Late st Contact Info) Description 01/22/2024 10:30 AM EST Appointment Mammography/[place] [phone] Ladi Mendosa MD [facility] HEMATOLOGY/[place] [address] 01/30/2024 11:30 AM EST Office Visit Dermatology at [address] [place] [address] Nilda Luis MD [facility] [address] [place] [address] 02/15/2024 9:30 AM EST [place] [phone] [place] [address] documented as of this encounter Visit Diagnoses Not on filedocumented in this encounter Care Teams Foundation Assistant Relationship Specialty Start Date End Date Trinh Coates MD [address] [place] [address] PCP - General 01/11/10 documented as of this encounter
--- OUTSIDE RECORDS SUMMARY | 2023-09-07 11:35 | XMS_ITS | Encounter Summary ---
Author Organization [facility] [place] [address] Care Team Providers Care Meat Service Team Member Name Role Phone Trinh Coates MD Primary Care Provider [phone] Encounter Details Date Type Department Care Team (Late st Contact Info) Description 03/22/2017 Telephone Hematology [place] [phone] Rasheeda Trent RN Social History Tobacco Use Types Packs/Day [...] encounter Miscellaneous Notes * Telephone Encounter - Rasheeda Trent RN - 03/22/2017 11:05 AM EST Comprehensive Breast Program (CBP) Note Date of call: 03/23/17 ?? Reason for call: Contacted patient after Dr. Rodriguez informed her that her breast biopsy results indicated she has invasive ductal carcinoma, to introduce her to the CBP. Wendy Sandoval is a 51 y.o. female with newly diagnosed ER/HI+/HER2 pat pending left breast IDC (left breast U/S guided biopsy 03/20/2017 at [facility] Wendy sounds positive and has support. Her will accompany her to appointments. She appears to be coping well but is anxious to meet with a breast surgeon to determine a treatment plan. She is not interested in having a trained volunteer from [employer] ([employer]) patient support corps accompany her to provider appts. She has access to [employer]. Plan: Appointments for breast MRI and surgical consult with a breast surgeon have been scheduled. She was introduced to the CBP and told she would receive information about her diagnosis and treatment for her review (the Breast Cancer Treatment Handbook and a link to the [facility] Early-Stage: InvasiveBreast Cancer program). Plan to meet with Wendy on the day of her consult apt. Addressed her questions and encouraged her to contact me with any additional questions or concerns.She has our contact information. FAMILY HISTORY Breast Cancer: Mother - in her 60's (?DCIS), lumpectomy and radiotherapy. Now A&W age 76. Elsa - at age 39 who developed a contralateral BR CA at age 50. Marky - diagnosed two years ago at age 46 with Stg IV BR CA. Currently in remission, doing ok. Cousin did not have genetic testing done. Her 23 yo daughter is concerned about family history and they question genetic testing as well as what steps her daughter should take. Wendy has one sister. CRC: MGF in his 80's M Uncle in his 60's Laterality:Left Is this a recurrence:No Family history of breast cancer:Yes Family history of ovarian cancer: No Personal history or breast cancer:No Method of detection: Mammogram Method of diagnosis: Ultrasound Core Biopsy documented in this encounter Plan of Treatment Upcoming Encounters Date Type Department Care Team (Late st Contact Info) Description 01/22/2024 10:30 AM EST Appointment Mammography/[place] [address] Ladi Mendosa MD [facility] HEMATOLOGY/[place] [address] 01/30/2024 11:30 AM EST Office Visit Dermatology at [facility] [address] [place] [address] Nilda Luis MD [facility] DR [address] AGU[place] [address] 02/15/2024 9:30 AM EST [place] [phone] [place] [address] documented as of this encounter Visit Diagnoses Not on filedocumented in this encounter Care Teams Meat Service Team Member Relationship Specialty Start Date End Date Trinh Coates MD [facility] [address] [facility] [address] [place] [address] PCP - General 01/11/10 documented as of this encounter
--- OUTSIDE RECORDS SUMMARY | 2023-09-07 11:35 | XMS_ITS | Encounter Summary ---
Author Organization [facility] Address [facility] [place] [address] Care Team Providers Care Operations Research Scientist Name Role Phone Trinh Coates MD Primary Care Provider [phone] Encounter Details Date Type Department Care Team (Latest Contact Info) Description 03/20/2017 2:16 PM EST - 03/20/2017 11:59 PM [facility] Hospital [place] [address] Jhonatan Rodriguez MD [facility] [place] [address] Abnormal finding on breast imaging Discharge Disposition: Home Social History Tobacco Use [...] DR tablet 1 CAP daily 03/27/2014 024 valsartan-hydrochloroth iazide (DIOVAN-HCT) 160-12.5 mg Tablet Take 1 tablet by mouth daily. 02/20/2017 10/10/2017 potassium chloride 20 mEq Tablet Sustained Release Take 1 tablet by mouth daily. 0 03/19/2017 03/29/2017 levothyroxine (SYNTHROID) 112 mcg Tablet Take 1 tablet by mouth daily. 0 01/25/2017 06/20/2017 terbinafine (LAMISIL) 250 mg Tablet Take 250 mg by mouth once a week. 03/29/2017 acetaminophen (TYLENOL) 325 mg Tablet Take 2 tablets by mouth every 4 hours as needed for Pain. 11/03/2015 07/25/2022 ibuprofen (ADVIL;MOTRIN) 400 mg Tablet Take 1 tablet by mouth every 6 hours as needed for Pain. 11/03/2015 03/29/2017 calciTRIol (ROCALTROL) 0.25 mcg Capsule Take 1 capsule by mouth daily. 30 tablet 3 11/03/2015 03/29/2017 furosemide (LASIX) 20 mg Tablet Take 1 tablet by mouth daily as needed. 09/27/2015 03/29/2017 norethindrone (AYGESTIN) 5 mg Tablet Take 1 tablet by mouth daily. 09/30/2015 05/25/2017 valsartan (DIOVAN) 160 mg Tablet Take 1 tablet by mouth daily. 07/26/2015 03/29/2017 fish oil-omega-3 fatty acids 1,000 mg Capsule Take 1 g by mouth every other day. 03/29/2017 b complex vitamins Capsule Take 1 capsule by mouth daily. 03/29/2017 KLOR-CON M20 20 mEq extended release tablet 2 times daily. 10/31/2012 simvastatin (ZOCOR) 10 mg tablet nightly. 10/31/2012 03/29/2017 triamcinolone (ARISTOCORT) 0.5 % cream 10/24/2012 03/29/2017 documented as of this encounter Plan of Treatment Upcoming Encounters Date Type Department Care Team (Late st Contact Info) Description 01/22/2024 10:30 AM EST Appointment Mammography/[place] [phone] Ladi Mendosa MD [facility] HEMATOLOGY/[place] [address] 01/30/2024 11:30 AM EST Office Visit Dermatology at [address] [place] [address] Nilda Luis MD [facility] [address] [place] [address] 02/15/2024 9:30 AM EST [place] [phone] [place] [address] documented as of this encounter Procedures Procedure Name Priority Date/Time Associated Diagnosis Comments MAMMO US BIOPSY LEFT Routine 03/20/2017 2:57 PM EST Abnormal finding on breast imaging SURGICAL PATHOLOGY REPORT Routine 03/20/2017 2:54 PM EST SPECIMEN TO PATHOLOGY Routine 03/20/2017 2:54 PM EST documented in this encounter Results * Mammo Us Biopsy Left (03/20/2017 2:57 PM EST) Anatomical Region Laterality Modality Breast Left Mammography Impressions 03/21/2017 2:47 PM EST Concordant malignant result RECOMMENDATION: Definitive management. I discussed these results and recommendations with the patient on 03/21/2017 at 1447 hours. REVIEW PATH CONFERENCE?: No Narrative 03/21/2017 2:47 PM EST LEFT BREAST ULTRASOUND GUIDED AUTOMATED CORE BIOPSY CLINICAL HISTORY: abnormal finding. Left breast mass 2:00 radian 8 cm from the nipple measuring 1.9 cm. PROCEDURAL DETAILS: Informed consent was obtained and a timeout procedure was performed per protocol. Using local anesthetic (less than 5 cc of 1% lidocaine), sterile technique, and ultrasound guidance the lesion in the left breast was localized and sampled. Multiple satisfactory core biopsy specimens were obtained using a 14-gauge automated device. A Matomy Money 14G marker clip was placed. The clip was in satisfactory position both sonographically and at follow-up cranio-caudal and true lateral digital mammography. COMPLICATIONS: None. PROCEDURAL ATTESTATION: Resident: Jorge A I was present with the resident for the arteaga component(s) of the procedure and otherwise remained immediately available for the duration of the procedure. I attest to having personally viewed the images/test and approve the above interpretation. IMAGING DIFFERENTIAL DIAGNOSIS: Invasive carcinoma PATHOLOGIC DIAGNOSIS: Invasive carcinoma Jhonatan Rodriguez MD IMG MAMMO ORDERABL ES * Surgical Pathology Report (03/20/2017 2:54 PM EST) Surgical Pathology Report [id number] ? Location: 3L The signing pathologist has (i) examined the relevant preparation(s) for the specimen(s) and (ii) rendered or confirmed the diagnosis(es). . ?Molecular Genetics RESULTS TEST: ??HER2(ERBB2)FISH, Breast METHOD: ??Fluorescence in situ hybridization (FISH) with chromosome 17 centromere (17p11.1-q11.1) probe and a locus specific probe for the HER2 gene locus (17q11.2- q12). SAMPLE ANALYZED: A1-07 RESULT: ?NEGATIVE FOR HER2/DAWN AMPLIFICATION ? TOTAL # SIGNALS/TOTAL # NUCLEI COUNTED FOR HER2 PROBE = 56 ? TOTAL # SIGNALS/TOTAL # NUCLEI COUNTED FOR CEP-17 PROBE = 56 ? HER2 TO CEP-17 RATIO = 1.0 ? (NORMAL RANGE ? <2.0) ? TOTAL # NUCLEI COUNTED = 40 Interpretation: ??Paraffin-embedde d tissue sections were submitted for HER2(ERBB2)gene amplification analysis by FISH. ??Direct analysis was performed using the [employer] Kit. ??Slide adequacy and signal enumeration were evaluated and satisfactory for both control and patient slides. ??A signal ratio derived from the HER2 probe and the CEP-17 centromere probe of ?2.0 is considered positive for HER2 gene amplification. The 2013 ASCO/CAP guideline recommendation for HER2 testing in breast cancer states that samples with a HER2 to CEP-17 ratio of less than 2.0 are non-amplified. Specimens with a HER2 to CEP-17 range of ?2.0 are considered amplified. This test is approved by the U.S. FDA for clinical diagnostic use. Reference: Anum GONZÁLES, et al. Recommendations for human epidermal growth factor receptor 2 testing in breast cancer: [place] Society of Clinical Oncology/College of [employer] Pathologists clinical practice guideline update. J Clin Oncol. 2013 Dec 20. Reviewed by: Susana Ramirez MD Nursing Department Chairperson, Molecular Pathology _ Electronically signed by: ??James RENEE, Susana Glass Verified: ??03/28/2017 ?Pathologist Performed at: ??-[facility] Dept. of Pathology, [place], [place] ? Addendum ADDENDUM DISCUSSION Immunohistochemist ry Studies Specimen: Left breast, core needle biopsy (A1) ER immunoreactivity: Positive ( ??>90% cancer cells with immunostaining) Stain intensity: Strong . ADDENDUM DISCUSSION AR immunoreactivity: Positive ( ??>90%) cancer cells with immunostaining) Stain intensity: Strong HER2 FISH: separate report to follow ? *Diagnostic arteaga for hormone receptors (ASCO/CAP GUIDELINES, 2010): ?Negative immunoreactivity: ?? <1% tumor cells with immunostaining ?Positive immunoreactivity: ?? >1% tumor cells with immunostaining Immunohistochemica l assays were performed on paraffin-embedded tissue sections fixed in 10% neutral buffered formalin for 6-72 hours using the polymer system technique with appropriate positive and negative controls. ??The assays were performed according to the de icer installer ??'s instructions using Anti-ER (SP1) and Anti-AR (16) antibodies. Electronically signed by: ??Mana Ly DO Verified: ??03/22/2017 ?Pathologist Performed at: ??-[facility] Dept. of Pathology, [place], [place] ?Surgical Pathology DIAGNOSIS Needle biopsies: ?Left breast Diagnosis: ?Invasive ductal carcinoma ?High grade, modified SBR score = 8 Microcalcification s: ??N/A Electronically signed by: ??Mana Ly DO Verified: ??03/21/2017 ?Pathologist Performed at: ??-[facility] Dept. of Pathology, [place], [place] DISCUSSION Studies for ER, AR, and HER2 have been ordered; results will be issued in an addendum. CLINICAL INFORMATION Specimen Submitted: A - Left breast us guided bx 14 g Clinical History: Mass 1. IDC 2. [facility] [address] [address] Report to: TRINH COATES SPECIMEN PROCESSING Labeled/Fixative: left breast us guided bx, formalin. Quantity/Size: 3, 0.2 cm in diameter, ranging from 1.5 to 2.2 cm in length. Tissue Description: caputo soft needle core biopsies. Ischemic Time: 6 minutes. Sections/Processin g: (T1) nsm [facility] 03/20/2017 2:54 PM EST Jhonatan Rodriguez MD PATHOLOGY/CYTOLOGY ORDERABLES Performing Organization Address [facility] Co de Phone Number [place] [address] * Specimen to Pathology (03/20/2017 2:54 PM EST) AP Specimen 03/20/2017 2:54 PM EST 03/20/2017 2:54 PM EST Narrative [facility] - 03/20/2017 2:54 PM EST Specimen requisition ordered. ??Separate Pathology report to follow Jhonatan Rodriguez MD PATHOLOGY/CYTOLOGY ORDERABLES Performing Organization Address [facility] Co de Phone [place] [address] documented in this encounter Visit Diagnoses Diagnosis Abnormal finding on breast imaging Other (abnormal) findings on radiological examination of breast documented in this encounter Administered Medications Inactive Administered Medications - up to 3 most recent administrations Medication Order MAR Action Action Date Dose Rate Site lidocaine (XYLOCAINE) 10 mg/mL (1 %) injection 10 mg 10 mg, Intradermal, ONCE, 1 dose, On 03/20/17 at 1445, Routine Given 03/20/2017 2:38 PM EST 10 mg documented in this encounter Care Teams Operations Research Scientist Relationship Specialty Start Date End Date Trinh Coates MD [facility] [address] [place] [address] PCP - General 01/11/10 documented as of this encounter
--- OUTSIDE RECORDS SUMMARY | 2023-09-07 11:35 | XMS_ITS | Encounter Summary ---
Author Organization [place] [address] Care Team Providers Care Job Captain Name Role Phone Trinh Coates MD Primary Care Provider [phone] Reason for Referral * Diagnostic Test (Routine) - Closed Specialty Diagnoses / Procedures Referred By Contac t Referred To Contact Radiology Diagnoses Malignant neoplasm of left female breast, unspecified estrogen receptor status, unspecified site of breast Procedures MRI Breast wwo Contrast Jolie Butterfield MD [facility] [place] [address] [place] [address] Referral ID Status Reason Start Date Expiration Date V isits Requested Visits Authorized [id number] Closed Specialty Service Requested 03/23/2017 05/07/2017 1 1 Reason for Visit * Diagnostic Test (Routine) - Closed Specialty Diagnoses / Procedures Referred By Contac t Referred To Contact Radiology Diagnoses Malignant neoplasm of left female breast, unspecified estrogen receptor status, unspecified site of breast Procedures MRI Breast wwo Contrast Jolie Butterfield MD [facility] [address] [facility] [place] [address] [place] [address] Referral ID Status Reason Start Date Expiration Date V isits Requested Visits Authorized [id number] Closed Specialty Service Requested 03/23/2017 05/07/2017 1 1 Encounter Details Date Type Department Care Team (Latest Contact Info) Description 03/27/2017 6:09 PM EST - 03/27/2017 11:59 PM EST Hospital Encounter MRI at [facility] [place] [address] Jolie Menendez MD [facility] GENERAL [place] [address] Malignant neoplasm of left female breast, unspecified [...] mg DR tablet 1 CAP daily 03/27/2014 03/26/2 024 valsartan-hydrochloroth iazide (DIOVAN-HCT) 160-12.5 mg Tablet [...] 01/22/2024 10:30 AM EST Appointment Mammography[place] [address] Ladi Mendosa MD [facility] HEMATOLOGY/[place]COLOG[place] [address] 01/30/2024 11:30 AM EST Office Visit Dermatology at [facility] [address] [place] [address] Nilda Luis MD [facility] DR L[address] AGUILAR-DERMATOL[place] [address] 02/15/2024 9:30 AM EST [place] [address] [place] [address] documented as of this encounter Procedures Procedure Name Priority Date/Time Associated Diagnosis Comments MRI BREAST WWO CONTRAST BILAT Routine 03/27/2017 8:35 PM EST Malignant neoplasm of left female breast, unspecified estrogen receptor status, unspecified site of breast documented in this encounter Results * MRI Breast wwo Contrast Bilat (03/27/2017 8:35 PM EST) Anatomical Region Laterality Modality Breast N/A Magnetic Resonan ce Impressions 03/28/2017 12:14 PM EST 1.9 cm known left breast malignancy. A 1.1 cm partially enhancing ovoid mass, 2 cm inferior to the known malignancy, suspicious for malignancy. Suspicious left axillary lymphadenopathy. RECOMMENDATION: Definitive surgical management for known breast malignancy. Ultrasound evaluation of left breast lesion #2, with biopsy if appropriate. Left axillary ultrasound and biopsy if appropriate. LEFT BREAST lesion #1: BI-RADS 6. Known malignancy LEFT BREAST lesion #2: BI-RADS 4. Suspicious for malignancy RIGHT BREAST: BI-RADS 1. Normal I have personally reviewed the image(s) and the residents interpretation and agree with the findings, Yluy Jackson at 03/28/2017 12:14 PM Narrative 03/28/2017 12:14 PM EST BILATERAL BREAST MRI CLINICAL INDICATION: ??51-year-old female with newly diagnosed left breast cancer, high-grade invasive ductal carcinoma. TECHNIQUE: Multiplanar sequences were obtained pre- and post- gadolinium enhancement, to include SPGR weighted dynamic run-off and subtraction sequences obtained after the intravenous administration of 15 ccs of Dotarem. Computer algorithm analysis for lesion detection and kinetic contrast enhancement curve analysis was performed, using [employer] software. COMPARISON STUDIES: Compared and/or correlated with prior studies including screening mammogram from 03/12/2017, diagnostic mammogram and ultrasound biopsy from 03/20/2017. FINDINGS: Background Enhancement Pattern (first post gadolinium image): Moderate Amount of Fibroglandular Tissue: Heterogeneous fibroglandular tissue LEFT Breast: Known 1.9 cm left upper outer quadrant malignant mass with susceptibility artifact from associated biopsy clip. There is a partially enhancing 1.1 cm ovoid lesion with a nonenhancing portion of unclear etiology, approximately 2 cm inferior to lesion #1. There are scattered foci of enhancement with increased T2 signal, likely due to fibrocystic changes. A 1.0 cm ovoid nonenhancing mass at the 9:00 radian is consistent with the patient's mammographically identified fibroadenoma. LEFT BREAST LESION #1: ??1.8 x 1.6 x 1.9 cm Mass Upper outer quadrant ??2 O'Clock 8 cm from the nipple by MRI Mass: Shape: Irregular Margins: Circumscribed Enhancement: Heterogeneous Delayed phase: Washout LEFT BREAST LESION #2: ??1.1 cm Mass Lower outer quadrant ??4 O'Clock 7 cm from the nipple by MRI Mass: Shape: Oval/lobulated ??Margins: Circumscribed Enhancement: Heterogeneous Delayed phase: Plateau RIGHT Breast: There are scattered foci of enhancement within the right breast with increased T2 signal, likely representing fibrocystic change. There is susceptibility artifact associated with a prior biopsy clip in the 12:00 radian, approximately 7 cm from the nipple. Lymph Node Basins/Other: There is asymmetric left axillary lymphadenopathy, with 2-3 morphologically abnormal-appearing lymph nodes, which are rounded with cortical thickening. No right axillary lymphadenopathy. No significant abnormalities are seen in the chest wall or skin.. Jolie Menendez MD IMG MRI ORDERABLES documented [...] Intravenous, ONCE PRN, 1 dose, Starting on Sun03/27/17 at 1923, Until Sun03/27/17 at 1923, Per Protocol, Radiology Contrast, Routine Given 03/27/2017 7:23 PM EST 15 mLs documented in this encounter Care Teams Job Captain Relationship Specialty Start Date End Date Trinh Coates MD [address] [place] [address] PCP - General 01/11/10 documented as of this encounter
--- OUTSIDE RECORDS SUMMARY | 2023-09-07 11:35 | XMS_ITS | Encounter Summary ---
Author Organization [facility] [place] [address] Care Team Providers Care Field Sales Consultant Name Role Phone Trinh Coates MD Primary Care Provider [phone] Reason for Referral * Diagnostic Test (Routine) - Closed Specialty Diagnoses / Procedures Referred By Contac t Referred To Contact Radiology Diagnoses Malignant neoplasm of left female breast, unspecified estrogen receptor status, unspecified site of breast Procedures CT Chest Abdomen Pelvis w Contrast (Generic) Jolie Menendez MD [facility] [address] [facility] [place] [address] Referral ID Status Reason Start Date Expiration Date V isits Requested Visits Authorized [id number] Closed Specialty Service Requested 04/04/2017 05/19/2017 3 3 * Diagnostic Test (Routine) - Specialty Diagnoses / Procedures Referred By Contac t Referred To Contact Radiology Diagnoses Malignant neoplasm of left female breast, unspecified estrogen receptor status, unspecified site of breast Procedures NM Whole Body Bone Scan Jolie Menendez MD [facility] [place] [address] [facility] [place] [address] Referral ID Status Reason Start Date Expiration Date Visits Requested Visits Authorized [id number] Specialty Service Requested 04/02/2017 04/02/2018 3 3 Encounter Details Date Type Department Care Team (Late st Contact Info) Description 04/02/2017 Orders [place] [address] Jolie Menendez MD [facility] [place] [address] Malignant neoplasm of left female breast, unspecified [...] 01/22/2024 10:30 AM EST Appointment Mammography/DXA at [address] Ladi Mendosa MD [facility] HEMATOLOGY/[place] [address] 01/30/2024 11:30 AM EST Office Visit Dermatology at [address] [phone] Nilda Luis MD [facility] DR [address] [address] 02/15/2024 9:30 AM EST Appointment Radiology at [place] [phone] [place] [address] (work) documented as of this encounter Results * NM Whole Body [...] at 04/11/2017 4:59 PM Jolie Menendez MD [facility] ORDERABLES * CT Chest Abdomen Pelvis w [...] positive documented in this encounter Care Teams Field Sales Consultant Relationship Specialty Start Date End Date Trinh Coates MD [address] [place] [address] PCP - General 01/11/10 documented as of this encounter
--- OUTSIDE RECORDS SUMMARY | 2023-09-07 11:35 | XMS_ITS | Encounter Summary ---
Author Organization On License [facility] [place] [address] Care Team Providers Care Knowledge Engineer Name Role Phone Trinh Coates MD Primary Care Provider [phone] Reason for Referral * Diagnostic Test (Routine) - Specialty Diagnoses / Procedures Referred By Contac t Referred To Contact Radiology Diagnoses Malignant neoplasm of left female breast, unspecified estrogen receptor status, unspecified site of breast Procedures NM Whole Body Bone Scan Jolie Menendez MD [facility] [place] [address] [facility] [place] [address] Referral ID Status Reason Start Date Expiration Date Visits Requested Visits Authorized [id number] Specialty Service Requested 04/02/2017 04/02/2018 3 3 Reason for Visit * Diagnostic Test (Routine) - Closed Specialty Diagnoses / Procedures Referred By Contac t Referred To Contact Radiology Diagnoses Malignant neoplasm of left female breast, unspecified estrogen receptor status, unspecified site of breast Procedures CT Chest Abdomen Pelvis w Contrast (Generic) Jolie Menendez MD [facility] [place] [address] [facility] [place] [address] Referral ID Status Reason Start Date Expiration Date V isits Requested Visits Authorized [id number] Closed Specialty Service Requested 04/04/2017 05/19/2017 3 3 Encounter Details Date Type Department Care Team (Latest Contact Info) Description 04/11/2017 10:36 AM EST - 04/11/2017 11:08 AM EST Hospital Encounter [place] [phone] [facility] [place] [address] Malignant neoplasm of left female breast, unspecified [...] 01/22/2024 10:30 AM EST Appointment Mammography/[place] [address] [facility] HEMATOLOGY/[place] [address] 01/30/2024 11:30 AM EST Office Visit Dermatology at [facility] [address] [place] [address] [facility] [address] L[place] [place] [address] 02/15/2024 9:30 AM EST [place] [phone] [place] [address] documented as of this encounter Procedures Procedure [...] Note Dinesh Kearney MD - 04/11/2017 EXAMINATION: SC WHOLE BODY BONE SCAN CLINICAL HISTORY: locally [...] Action Date Dose Rate Site technetium (Tc-99m) methylene diphosphonate (MDP) injection 26.1 mCi 26.1 mCi, Intravenous, ONCE PRN, 1 dose, Starting on Sun04/11/17 at 1100, Until Sun04/11/17 at 1100, Per Protocol, RACF, Routine Given 04/11/2017 11:00 AM EST 26.1 mCi documented in this encounter Care Teams Knowledge Engineer Relationship Specialty Start Date End Date Trinh Coates MD [address] [place] [address] PCP - General 01/11/10 documented as of this encounter
--- OUTSIDE RECORDS SUMMARY | 2023-09-07 11:35 | XMS_ITS | Encounter Summary ---
Author Organization [facility] Address [facility] [place] [address] Care Team Providers Care Shearing Machine Feeder Name Role Phone Trinh Coates MD Primary Care Provider [phone] Encounter Details Date Type Department Care Team (Late st Contact Info) Description 03/28/2017 Orders Only [place] [phone] Jolie Menendez MD [facility] [address] Malignant neoplasm of female breast, unspecified estrogen [...] 10:30 AM EST Appointment Mammography/[place] [phone] Ladi Mendosa MD [facility] HEMATOLOGY/[place] [address] 01/30/2024 11:30 AM EST Office Visit Dermatology at [facility] [address] [place] [address] Nilda Luis MD [facility] DR [place] [address] 02/15/2024 9:30 AM EST Appointment [place] [phone] [place] [address] documented as of this encounter Results * Mammo Breast Us Limited Left (03/29/2017 2:03 PM EST) Anatomical Region Laterality Modality Breast Left Mammography Impressions 03/29/2017 3:00 PM EST Benign sonographic correlate for lesion #2 in the left breast. Axillary adenopathy confirmed sonographically, with core biopsy to be performed subsequently. This is dictated separately. Left breast lesion #2: BI-RADS Category 2: Benign Findings Left axilla: ??BI-RADS Category 4: Suspicious Finding - Biopsy Should Be Considered Narrative 03/29/2017 3:00 PM EST EXAMINATION: MAMMO BREAST US LIMITED LEFT CLINICAL HISTORY: lesion 2 on MRI TECHNIQUE: I performed high-resolution ultrasound following the technologist of the left axilla and left lateral breast. COMPARISON: This study was compared with prior images. Specifically the MRI dated 03/27/2017 FINDINGS: Sonographically there is a benign correlate for the imaging finding at the left breast 2 cm inferior to the known lesion at the 2:00 radian. This is a morphologically normal intramammary lymph node at the 3:00 radian 7 cm from the nipple, 2 cm inferior to the index lesion measuring 1 cm in maximal diameter. Sonographically there are several morphologically abnormal lymph nodes. The largest abnormal lymph node measures 1.7 cm in maximal diameter. The rounded lymph node is selected for core biopsy measuring 1 cm in diameter. Jolie Menendez MD IMG MAMMO ORDERABLE S documented in this encounter Visit Diagnoses Diagnosis Malignant neoplasm of female breast, unspecified estrogen receptor status, unspecified laterality, unspecified site of breast Malignant neoplasm of female breast, unspecified estrogen receptor status, unspecified laterality, unspecified site of breast documented in this encounter Care Teams Shearing Machine Feeder Relationship Specialty Start Date End Date Trinh Coates MD [address] [facility] 1 [place] [address] PCP - General 01/11/10 documented as of this encounter
--- OUTSIDE RECORDS SUMMARY | 2023-09-07 11:35 | XMS_ITS | Encounter Summary ---
Author Organization [facility] [place] [address] Care Team Providers Care Access Database Developer Name Role Phone Trinh Coates MD Primary Care Provider [phone] Encounter Details Date Type Department Care Team (Late st Contact Info) Description 11/05/2015 Orders Only [place] [phone] Dyan Martino, RN Hypocalcemia Social History Tobacco Use Types Packs/Day Years Used Date Smoking Tobacco: Former Smokeless Tobacco: Never Alcohol Use Standard Drinks/Week Comments Yes 0 (1 standard drink = 0.6 oz pur e alcohol) socially Sex and Gender Information Value Date Recorded Sex Assigned at Not on file Gender Identity Not on file Sexual Orientation Not on file documented as of this encounter Progress Notes * Dyan Martino, RN - 11/05/2015 10:29 AM EDT Wendy called the clinic today with concerns of numbness and tingling, feeling weak and shaky s/p parathyroidectomy with Dr. Lucas on Sunday. Will have calcium level drawn at [facility] and results faxed to Dr. Lucas. Wendy verbalized an understanding and is in agreement with the plan. Dr. Lucas recommended increasing calcium to 4x/day and doubling the calcitriol at least for the weekend. We will touch base with her on Sunday. She verbalized an understanding and is in agreement with the plan. documented in this encounter Plan of Treatment Upcoming Encounters Date Type Department Care Team (Late st Contact Info) Description 01/22/2024 10:30 AM EST Appointment Mammography/[place] [phone] Ladi Mendosa MD [facility] HEMATOLOGY/[place] [address] 01/30/2024 11:30 AM EST Office Visit Dermatology at [place] [address] [place] [phone] Nilda Luis MD [facility] [place] [address] 02/15/2024 9:30 AM EST Appointment [place] [address] [place] [address] documented as of this encounter Visit Diagnoses Diagnosis Hypocalcemia documented in this encounter Care Teams Access Database Developer Relationship Specialty Start Date End Date Trinh Coates MD [address] [place] [address] PCP - General 01/11/10 documented as of this encounter
--- OUTSIDE RECORDS SUMMARY | 2023-09-07 11:35 | XMS_ITS | Encounter Summary ---
Author Organization [facility] Address [facility] [place] [address] Care Team Providers Care Histopathologist Name Role Phone Trinh Coates MD Primary Care Provider [phone] Encounter Details Date Type Department Care Team (Latest Contact Info) Description 03/20/2017 1:45 PM EST - 03/20/2017 1:47 PM EST Hospital [place] [address] Javier Shaffer MD [facility] [place] [address] Abnormal finding on breast imaging Discharge Disposition: [...] 01/22/2024 10:30 AM EST Appointment Mammography[place] [phone] Ladi Mendosa MD [facility] HEMATOLOGY/[place] [address] 01/30/2024 11:30 AM EST Office Visit Dermatology at [address] [address] Nilda Luis MD [facility] DR [address] [place] [address] 02/15/2024 9:30 AM [place] [address] [place] [address] documented as of this encounter Procedures Procedure Name Priority Date/Time Associated Diagnosis Comments MAMMO CALL BACK DIAGNOSTIC STORM WITHOUT CAD LEFT Routine 03/20/2017 2:14 PM EST Abnormal finding on breast imaging documented in this encounter Results * Mammo Call Back Dx Extra View Storm Without Cad Left (03/20/2017 2:14 PM EST) Anatomical Region Laterality Modality Breast Left Mammography Impressions 03/20/2017 3:17 PM EST Highly suspicious 2 cm mass left breast 2:00 radian 8 cm from the nipple for which ultrasound-guided core breast biopsy is recommended. This is performed and dictated separately on the day of the patient's visit. BI-RADS Category 5: Highly Suggestive of Malignancy - Appropriate Action Should Be Taken Narrative 03/20/2017 3:17 PM EST EXAMINATION: MAMMO CALL BACK DIGITAL DX EXTRA VIEW STORM WITHOUT CAD LEFT, MAMMO BREAST US LIMITED LEFT CLINICAL HISTORY: abnormal mammo TECHNIQUE: CC spot compression, MLO spot compression and true lateral views were obtained of the left breast. 2-D direct digital capture, 3-D tomosynthesis and computer aided detection (CAD) were used.. COMPARISON: This study was compared with prior images. FINDINGS: There is a persistent lobulated spiculated mass in the left upper outer quadrant posterior third. Mammographically this measures 2 cm in maximal diameter. Left breast ultrasound: High-resolution ultrasound confirms an irregular shadowing nonparallel indistinct mass at the 2:00 radian 8 cm from the nipple measuring up to 2 cm in maximal diameter, inclusive of the hyperechoic fibrotic rim. Javier Shaffer MD IMG MAMMO ORDERABLES documented in this encounter Visit Diagnoses Diagnosis Abnormal finding on breast imaging Other (abnormal) findings on radiological examination of breast documented in this encounter Care Teams Histopathologist Relationship Specialty Start Date End Date Trinh Coates MD [address] [facility] 1 [place] [address] PCP - General 01/11/10 documented as of this encounter
--- OUTSIDE RECORDS SUMMARY | 2023-09-07 11:35 | XMS_ITS | Encounter Summary ---
Author Organization [facility] [place] [address] Care Team Providers Care Nurse'S Assistant Name Role Phone Trinh Coates MD Primary Care Provider [phone] Reason for Visit * Consultation (Routine) - Closed Specialty Diagnoses / Procedures Referred By Diamante marin Referred To Contact Hematology and Oncology Diagnoses Breast cancer Trinh Coates MD [address] [place] [address] [facility] 1 [place] [address] [facility] Hem Onc [address] [place] [address] Referral ID Status Reason Start Date Expiration Date Visits Re quested Visits Authorized [id number] Closed 03/21/2017 03/21/2018 1 1 Encounter Details Date Type Department Care Team (Late st Contact Info) Description 03/29/2017 11:00 AM EST Office [place] [address] Jolie Menendez MD [facility] [place] [place] [address] Rasheeda Trent, RN Ureteral stone; Malignant neoplasm of upper-outer quadrant of left [...] Sign Reading Time Taken Comments Blood Pressure 158/93 03/29/2017 10:56 AM EST Pulse 73 03/29/2017 10:56 AM EST Temperature 36.9 ??C (98.4 ??F) 03/29/2017 10:[address] Respiratory Rate 16 03/29/2017 10:56 AM EST Oxygen Saturation 99% 03/29/2017 10:56 AM EST Inhaled Oxygen Concentration - - Weight 76.7 kg (169 lb 1.6 oz) 03/29/2017 10:56 AM EST Height 154.9 cm (5' 1) 03/29/2017 10:56 AM EST Body Mass Index 31.95 03/29/2017 10:56 AM EST documented in this encounter Progress Notes * Rasheeda Trent RN - 03/29/2017 11:00 AM EST Comprehensive Breast Program Note Wendy Sandoval is a 51 y.o. female with left breast cancer. I met with the patient and her , Phillip, in clinic. Wendy is aware that consultations with one of our genetic counselors and a plastic surgeon will be scheduled and she will be contacted. She is aware of apt. in radiology at 1 PM today for additional imaging and potential biopsy/ies. She was given two marsupial pouches for drain management should she elect mastectomy or bilateral mastectomies. SPECIFIC TEACHIN. Breast Cancer Treatment Handbook (Kathleen Myles, 2012) was received via mail. 2. Information from our Shared Decision-Marking Program on Early-Stage Breast Cancer was provided. 3. She understands she will meet with a medical and possibly a radiation oncologist after surgery. 4. Contact phone number for questions or concerns in the immediate post- operative period. 5. Comprehensive Breast Program Binder. 6. Post Breast Surgery Exercises handout created by physical therapists at [facility]. 7. Breast Cancer Treatment Process care map provided and reviewed. 8. Things to Consider...What I Wish I Knew advice from breast cancer patients handout provided. She verbalized understanding of the plan of care and states all her questions were answered. Fifteen minutes was spent in education and providing support. Wendy has our contact information. She is aware surgery will be scheduled after her consultationsand testing results if tested. Pre-op MRI: Yes Abnormalities detected Ipsilateral Referral to familial counseling: Yes * Jolie Menendez MD - 03/29/2017 11:00 AM EST Subjective: Patient ID: Wendy Sandoval is a 51 y.o. female. ROSEMARY Nguyen is a 51 yo female who presents today in surgical consultation at the request of Dr. Shaffer.She presents with her to discuss newly diagnosed left breast cancer. Wendy presented for screening mammogram in February,. This revealed a new mass in the upper, outer left breast. Callback imaging confirmed a suspicious 2cm mass. The right breast was normal. Biopsy revealed stronglyER/WY+, HER2- IDC. MRI was then obtained for [...] masses, skin changes, nipple discharge or adenopathy. SH: with son and daughter FH; strong FH of breast and colorectal cancer Mother - in her 60's (?DCIS), lumpectomy and radiotherapy. Now A&W age 76. RAFFYmarilia - at age 39 who developed a contralateral BR CA at age 50. Marky - diagnosed two years ago at age 46 with Stg IV BR CA. Currently in remission, doing ok. Cousin did not have genetic testing done. PMH Hypercholesterolemia hypothyroidism Hypertension Nephrolithiasis H/o primary hyparathyroidism s/p 3 gland removal Review of Systems Constitutional: Positive for fatigue. [...] She has a normal mood and affect. Imaging: as in HPI. I have reviewed mammograms and MRI CBC with elevated WBC (16,000). Wendy has a known kidney stone but is asymptomatic currently. Plan u/s today LFTs WNL Assessment and Plan: Wendy is a 51 yo female with [...] gene. We will readdress after genetic testing. In terms of the nodes, I advised [...] with medical and radiation oncology post operatively. I will call Wendy with results of [...] consult. Plan ALND at time of surgery. documented in this encounter Plan of Treatment Upcoming Encounters Date Type Department Care Team (Late st Contact Info) Description 01/22/2024 10:30 AM EST Appointment Mammography/DXA at [place] [phone] Ladi Mendosa MD [facility] HEMATOLOGY/[place] [address] 01/30/2024 11:30 AM EST Office Visit Dermatology at [address] [address] Nilda Luis MD [facility] [address] [place] [address] 02/15/2024 9:30 AM EST Appointment [place] [address] [place] [address] documented as of this encounter Procedures Procedure Name Priority Date/Time Associated Diagnosis Comments SURGICAL PATHOLOGY REPORT Routine 03/29/2017 3:20 PM EST documented in this encounter Results * Surgical Pathology Report (03/29/2017 3:20 PM EST) Surgical Pathology Report [id number] ? Location: 4L The signing pathologist has (i) examined the relevant preparation(s) for the specimen(s) and (ii) rendered or confirmed the diagnosis(es). . ?Surgical Pathology DIAGNOSIS Needle biopsies: ?Left axilla Diagnosis: ?Lymph node with metastatic carcinoma (see Discussion) Microcalcification s: ??N/A Electronically signed by: ??Sally RENEE, Bill Avila Verified: ??03/30/2017 ?Pathologist Performed at: ??-[facility] Dept. of Pathology, [place], [place] DISCUSSION The tumor morphologically resembles the patient ?? 's recently diagnosed left breast invasive ductal carcinoma ([id number]). CLINICAL INFORMATION Specimen Submitted: A - Left axilla bx 14g, biopsy (3) Clinical History: Node Clinical Diagnosis: 1. Met 2. Hyperplasia SPECIMEN PROCESSING A - ??Labeled/Fixative : Left axilla BX, formalin. Quantity/Size: Five, ranging from 0.3 x 0.2 cm to 1.0 x 0.2 cm. Tissue Description: Fibrofatty needle core biopsies. Ischemic Time: 5 minutes. Sections/Processin g: (T2) ??sns [facility] 03/29/2017 3:20 PM EST Kim Rodriguez MD PATHOLOGY/CYTOLOGY ORDERABLES Performing Organization Address City/State/[facility] Co de Phone Number [facility] [address] * (ABNORMAL) Urinalysis with reflex Culture (03/29/2017 2:27 PM EST) Glucose UA Negative Negative mg/dL [facility] Protein UA >=500(A) Negative mg/dL [facility] Bilirubin UA Negative Negative mg/dL [facility] Comment: Clinical correlation required for positive Urine Bilirubin results as false positive may occur with some drugs and drug related products. If a false positive is suspected a serum total bilirubin should be considered if clinically indicated. Urobilinogen UA Normal Normal mg/dL [facility] pH UA 5.0 5.0 - 8.0 [facility] Blood UA Negative Negative mg/dL [facility] Ketones UA Negative Negative mg/dL [facility] Nitrite UA Negative Negative [facility] Leukocytes UA Negative Negative mcL [facility] Appearance UA Hazy(A) Clear [facility] Spec [place] UA 1.024 1.002 - 1.030 [facility] Color UA Yellow Yellow [facility] Culture Reflexed No [facility] Urine specimen obtained by clean catch procedure (specimen) 03/29/2017 2:27 PM EST 03/29/2017 2:34 PM EST Narrative Resulting Agency Comment Spec In Lab Jolie Menendez MD URINE ORDERABLES Performing Organization Address City/State/[facility] Co de Phone Number [facility] [place] [address] documented in this encounter Visit Diagnoses Diagnosis Ureteral stone Calculus of ureter Malignant neoplasm of upper-outer quadrant of left breast in female, estrogen receptor positive documented in this encounter Care Teams Nurse'S Assistant Relationship Specialty Start Date End Date Trinh Coates MD [address] [place] [address] PCP - General 01/11/10 documented as of this encounter
--- OUTSIDE RECORDS SUMMARY | 2023-09-07 11:35 | XMS_ITS | Encounter Summary ---
Author Organization [facility] Address [facility] [place] [address] Care Team Providers Care Rn Nursery Name Role Phone Trinh Coates MD Primary Care Provider [phone] Encounter Details Date Type Department Care Team (Latest Contact Info) Description 03/29/2017 2:45 PM EST - 03/29/2017 11:59 PM [facility] Hospital [place] [address] Jolie Menendez MD [facility] [place] [address] Discharge Disposition: Home Social History Tobacco Use [...] 01/22/2024 10:30 AM EST Appointment Mammography[place] [address] Ladi Mendosa MD [facility] HEMATOLOGY/[place] [address] 01/30/2024 11:30 AM EST Office Visit Dermatology at [facility] [address] [place] [address] Nilda Luis MD [facility] [address] [place] [address] 02/15/2024 9:30 AM EST [place] [address] [place] [address] documented as of this encounter Procedures Procedure Name Priority Date/Time Associated Diagnosis Comments MAMMO US BIOPSY LYMPH NODE LEFT Routine 03/29/2017 3:21 PM EST Malignant neoplasm of female breast, unspecified estrogen receptor status, unspecified laterality, unspecified site of breast SPECIMEN TO PATHOLOGY Routine 03/29/2017 3:20 PM EST documented in this encounter Results * Specimen to Pathology (03/29/2017 3:20 PM EST) AP Specimen 03/29/2017 3:20 PM EST 03/29/2017 3:20 PM EST Narrative [facility] - 03/29/2017 3:20 PM EST Specimen requisition ordered. ??Separate Pathology report to follow Kim Rodriguez MD PATHOLOGY/CYTOLOGY ORDERABLES [facility] [place] [address] documented in this encounter Visit Diagnoses Not on filedocumented in this encounter Administered Medications Inactive Administered Medications - up to 3 most recent administrations Medication Order MAR Action Action Date Dose Rate Site lidocaine (XYLOCAINE) 10 mg/mL (1 %) injection 10 mg 10 mg, Intradermal, ONCE, 1 dose, On Sosa 03/29/17 at 1530, Routine Given 03/29/2017 3:10 PM EST 10 mg documented in this encounter Care Teams Rn Nursery Relationship Specialty Start Date End Date Trinh Coates MD [address] [place] [address] PCP - General 01/11/10 documented as of this encounter
--- OUTSIDE RECORDS SUMMARY | 2023-09-07 11:35 | XMS_ITS | Encounter Summary ---
Author Organization Formerly [facility] Address [facility] [place] [address] Care Team Providers Care Skirt Panel Assembler Name Role Phone Trinh Coates MD Primary Care Provider [phone] Reason for Visit * Reason Comments Follow-up Encounter Details Date Type Department Care Team (Latest Contact Info) Description 12/09/2015 11:00 AM EDT Office Visit [place] [address] Valentina Lucas MD [facility] [place] [address] History of hyperparathyroidism Social History Tobacco Use Types Packs/Day Years [...] - Inhaled Oxygen Concentration - - Weight 81.2 kg (179 lb 0.2 oz) 12/09/2015 11:13 AM EDT Height - - Body Mass Index 34.96 11/02/2015 5:19 PM EDT documented in this encounter Progress Notes * Valentina Lucas MD - 12/09/2015 11:00 AM EDT Parathyroidectomy Post-Op Visit Subjective: Ms. Wendy Sandoval is a very pleasant 50 y.o. year old female s/p four gland exploration and 3-gland parathyroidectomy on 11/01 for primary hyperparathyroidism. The left upper parathyroid gland wasmorphologically normal and was confirmed by frozen section. She did have an ED visit for vertigo post- operatively. Her calcium was 8.9 at the time of that visit. She has been taking calcitriol once daily and calcium citrate 2 tabs TID. She does not really describe typical hypocalcemic paresthesias,but does say that she still does not feel normal. She describes a feeling of throat tightening and has recently started Prilosec. She is still complaining of fatigue. Since surgery, she has noticedless bony aches and less headaches. Exam: There were no vitals filed for this visit. Healing anterior neck incision with underlying healing ridge. No hematoma or seroma. Voice appears normal. Pathology results: A - Right lower parathyroid, for frozen section: Benign fibrovascular tissue. B - Central neck contents: One parathyroid gland. Thymic remnant. Three minute benign lymph nodes (0/3). C - Right lower parathyroid: Enlarged parathyroid gland with nodular oncocytic hyperplasia suggestive of adenoma. D - ? Right upper parathyroid for frozen section: Benign fibroadipose tissue. E - ? Left upper parathyroid for frozen section: Fragmented parathyroid gland. F - ? Cervical thymus for frozen section: Intrathymic, parathyroid gland. G - Left carotid sheath, mass, excision: Benign reactive lymph node (0/1). H - ? Right parathyroid gland for frozen section: Minute, fragment of benign adipose. I - Central neck contents: Two benign lymph nodes (0/2). Labs: Lab Results Component Value Date CALCIUM 9.3 12/09/2015 PTH 18 Assessment and Plan: Ms. Wendy Sandoval is a very pleasant 50 y.o. year old female s/p 3-gland parathyroidectomy for primary hyperparathyroidism who has no evidence of postoperative complications. I discussed the pathology results with the patient and recommended no further treatment. Her calcium was checked today and was normal, and her parathyroid hormone level has also returned to normal. A value of 18 suggests excellent viability and function of her remaining parathyroid gland. She will taper off her post- operative supplemental doses of calcium and vitamin D and calcitriol. I did encourage her to discuss calcium supplementation for general bone health purposes with her PCP. I explained that she should have her serum calcium checked annually, and that we do not need to follow PTH levels unless her calcium level rises again. I discussed scar massage with vitamin E to aid in incisional appearance and discussed the importance of UV light protection on scar healing. Overall, she is doing well post-operatively and I recommended follow up with me on an as needed basis hereafter. documented in this encounter Plan of Treatment Upcoming Encounters Date Type Department Care Team (Late st Contact Info) Description 01/22/2024 10:30 AM EST Appointment Mammography/[place] [phone] Ladi Mendosa MD [facility] HEMATOLOGY/[place] [address] 01/30/2024 11:30 AM EST Office Visit Dermatology at [place] [address] [place] [address] Nilda Luis MD [facility] [place] [address] 02/15/2024 9:30 AM EST Appointment [place] [phone] [place] [address] documented as of this encounter Results * PTH (12/09/2015 10:20 AM EDT) PTH 18 15 - 65 pg/mL [facility] Blood specimen (specimen) 12/09/2015 10:20 AM EDT 12/09/2015 10:25 AM EDT Narrative Resulting Agency Comment Spec In Lab Valentina Lucas MD CHEMISTRY ORDERAB LES [facility] [place] [place] [address] documented in this encounter Visit Diagnoses Diagnosis History of hyperparathyroidism Personal history of other endocrine, metabolic, and immunity disorders documented in this encounter Care Teams Skirt Panel Assembler Relationship Specialty Start Date End Date Trinh Coates MD [address] [place] [address] PCP - General 01/11/10 documented as of this encounter
--- OUTSIDE RECORDS SUMMARY | 2023-09-07 11:35 | XMS_ITS | Encounter Summary ---
Author Organization [facility] Address [place] [address] Care Team Providers Care Couture Alterations Dressmaker Name Role Phone Trinh Coates MD Primary Care Provider [phone] Encounter Details Date Type Department Care Team (Latest Contact Info) Description 03/29/2017 12:58 PM EST - 03/29/2017 2:25 PM [facility] Hospital [place] [address] Jolie Menendez MD [facility] [place] [address] Malignant neoplasm of female breast, unspecified estrogen [...] AM EST Appointment Mammography/[place] [phone] Ladi Mendosa MD [facility] HEMATOLOGY/[place] [address] 01/30/2024 11:30 AM EST Office Visit Dermatology at [facility] [address] [place] [address] Nilda Luis MD [facility] [address] [place] [address] 02/15/2024 9:30 AM EST [place] [phone] [place] [address] documented as of this encounter Procedures Procedure Name Priority Date/Time Associated Diagnosis Comments MAMMO BREAST US LIMITED LEFT Routine 03/29/2017 2:03 PM EST Malignant neoplasm of female breast, unspecified estrogen receptor status, unspecified laterality, unspecified site of breast documented in this encounter Results * Mammo Breast Us [...] breast documented in this encounter Care Teams Couture Alterations Dressmaker Relationship Specialty Start Date End Date Trinh Coates MD [address] [facility] [address] [place] [address] PCP - General 01/11/10 documented as of this encounter
--- OUTSIDE RECORDS SUMMARY | 2023-09-07 11:35 | XMS_ITS | Encounter Summary ---
Author Organization Formerly [facility] Address [facility] [place] [address] Care Team Providers Care Alarm Mechanism Adjuster Name Role Phone Trinh Coates MD Primary Care Provider [phone] Encounter Details Date Type Department Care Team (Late st Contact Info) Description 12/09/2015 10:15 AM EDT Laboratory Appointment Lab [address] [place] [address] Social History Tobacco Use Types Packs/Day Years [...] 01/22/2024 10:30 AM EST Appointment Mammography/[place] [address] Ladi Mendosa MD [facility] HEMATOLOGY/[place] [address] 01/30/2024 11:30 AM EST Office Visit Dermatology at [facility] [address] [place] [address] Nilda Luis MD [facility] [address] [place] [address] 02/15/2024 9:30 AM EST [place] [phone] [place] [address] documented as of this encounter Procedures Procedure Name Priority Date/Time Associated Diagnosis Comments HEMOGLOBIN A1C Routine 12/09/2015 10:20 AM EDT documented in this encounter Results * (ABNORMAL) Hemoglobin A1c (12/09/2015 10:20 AM EDT) Hemoglobin A1C 6.2(H) 4.3 - 5.6 % [facility] Comment: Reference Range: 4.3 - 5.6% 5.7 - 6.4% - Increased Risk of Developing Diabetes Mellitus >=6.5% - Consistent with diagnosis of Diabetes Mellitus In the absence of hyperglycemia (i.e. plasma glucose > 200 mg/dL) or classic symptoms of hyperglycemia a repeat measurement of HbA1c should be performed on a separate sample to confirm the diagnosis. Diagnosis and Classification of Diabetes Mellitus, Diabetes Care 2013; 36: Suppl. 1, S67-74 Est Avg Gluc 131 mg/dL [facility] Comment: eAG equivalents for HbA1c percentages: HbA1c(%) ?eAG(mg/dL) 6.0 ?126 6.5 ?140 7.0 ?154 7.5 ?169 8.0 ?183 8.5 ?197 9.0 ?212 9.5 ?226 10.0 ? 240 Limitations: The eAG calculation has not been validated on women, individuals below 18 years old and above 70 years old, and individuals with hemoglobinopathies. Additional resources are available on the ADA website: http://Field Agent.[employer]/DHMCadacalc Prosper JERONIMO, Hank J, Yunior R, et al. ??Translating the A1C assay into estimated average glucose values. ??Diabetes Care 2008:31(8):2744-3681. Blood specimen (specimen) Venous Draw / Unknown 12/09/2015 10:20 AM EDT 12/09/2015 10:25 AM EDT Narrative Resulting Agency Comment Spec In Lab Trinh Coates MD CHEMISTRY ORDERABLES [facility] [place] [address] documented in this encounter Visit Diagnoses Not on filedocumented in this encounter Care Teams Alarm Mechanism Adjuster Relationship Specialty Start Date End Date Trinh Coates MD [facility] [address] [place] [address] PCP - General 01/11/10 documented as of this encounter
--- OUTSIDE RECORDS SUMMARY | 2023-09-07 11:35 | XMS_ITS | Encounter Summary ---
Author Organization [facility] [place] [address] Care Team Providers Care Road Manager Name Role Phone Trinh Coates MD Primary Care Provider [phone] Reason for Referral * Diagnostic Test (Routine) - Closed Specialty Diagnoses / Procedures Referred By Diamante marin Referred To Contact Radiology Diagnoses Malignant neoplasm of left female breast, unspecified estrogen receptor status, unspecified site of breast Procedures MRI Breast wwo Contrast Fredoat Jolie Menendez MD [facility] [place] [address] [place] [address] Referral ID Status Reason Start Date Expiration Date V isits Requested Visits Authorized [id number] Closed Specialty Service Requested 03/23/2017 05/07/2017 1 1 Encounter Details Date Type Department Care Team (Late st Contact Info) Description 03/21/2017 Orders [place] [address] Jolie Menendez MD [facility] [place] [address] Malignant neoplasm of left female [...] 01/22/2024 10:30 AM EST Appointment Mammography[place] [address] Ladi Mendosa MD [facility] HEMATOLOGY/[place] [address] 01/30/2024 11:30 AM EST Office Visit Dermatology at [place] [address] [place] [phone] Nilda Luis MD [facility] [address] [address] 02/15/2024 9:30 AM EST [place] [address] [place] [address] documented as of this encounter Results * (ABNORMAL) Comprehensive metabolic panel (non-fasting) (03/29/2017 10:21 AM EST) Glucose Lvl 134 65 - 199 mg/dL [facility] Comment:Diabetes: >=200 mg/d L plus symptoms BUN 16 8 - 18 mg/dL [facility] Creatinine 1.01 0.70 - 1.20 mg/dL [facility] Sodium 141 135 - 145 mmol/L [facility] Potassium 3.7 3.5 - 5.0 mmol/L [facility] Comment: Please note: ??Patients with WBC >100,000 may have falsely elevated Potassium levels. ??For accurate Potassium quantification in these patients send serum separator tube (gold top) for subsequent determinations. ??Contact the Clinical Chemistry Laboratory if there are any questions. Chloride 101 98 - 107 mmol/L [facility] CO2 27 22 - 31 mmol/L [facility] Anion Gap 13 5 - 15 mmol/L [facility] Calcium 9.0 8.5 - 10.5 mg/dL [facility] Total Protein 6.6 6.1 - 8.0 gm/dL [facility] Albumin 3.9 3.2 - 5.2 gm/dL [facility] AST 12 0 - 30 unit/L [facility] ALT 21 0 - 30 unit/L [facility] Alk Phos 79 40 - 104 unit/L [facility] Total Bilirubin 0.5 0.2 - 1.3 mg/dL [facility] Estimated GFR 57(L) >=60 [facility] Comment: The reported eGFR should be multiplied by 1.2 for patients. The MDRD is not an appropriate measure of renal function for patients with body mass extremes or in patients with acute kidney failure. http://OneName/DHnkdep http://OneName/DHMCnkf Blood specimen (specimen) 03/29/2017 10:21 AM EST 03/29/2017 10:30 AM EST Narrative Resulting Agency Comment Spec In Lab Jolie Menendez MD CHEMISTRY ORDERABLE S [facility] [place] [address] * MRI Breast wwo Contrast Bilat (03/27/2017 [...] residents interpretation and agree with the findings, Yuly Jackson at 03/28/2017 12:14 PM Narrative 03/28/2017 [...] contrast enhancement curve analysis was performed, using [employer] software. COMPARISON STUDIES: Compared and/or correlated with [...] breast documented in this encounter Care Teams Road Manager Relationship Specialty Start Date End Date Trinh Coates MD [address] [place] [address] PCP - General 01/11/10 documented as of this encounter
--- OUTSIDE RECORDS SUMMARY | 2023-09-07 11:35 | XMS_ITS | Encounter Summary ---
Author Organization [facility] Address [facility] [place] [address] Care Team Providers Care Senior Software Qa Analyst Name Role Phone Trinh Coates MD Primary Care Provider [phone] Encounter Details Date Type Department Care Team (Latest Contact Info) Description 03/20/2017 1:48 PM EST - 03/20/2017 2:15 PM [facility] Hospital [place] [address] Javier Shaffer MD [facility] [place] [address] Abnormal finding on breast imaging Discharge Disposition: [...] 01/22/2024 10:30 AM EST Appointment Mammography[place] [phone] Ladi Mendosa MD [facility] HEMATOLOGY/[place] [address] 01/30/2024 11:30 AM EST Office Visit Dermatology at [place] [address] [place] [address] Nilda Luis MD [facility] [address] [address] 02/15/2024 9:30 AM EST [place] [address] [place] [address] documented as of this encounter Procedures Procedure Name Priority Date/Time Associated Diagnosis Comments MAMMO BREAST US LIMITED LEFT Routine 03/20/2017 2:14 PM EST Abnormal finding on breast imaging documented in this encounter Results * Mammo Breast Us Limited Left (03/20/2017 2:14 PM EST) Anatomical Region [...] breast documented in this encounter Care Teams Senior Software Qa Analyst Relationship Specialty Start Date End Date Trinh Coates MD [facility] [address] [place] [address] PCP - General 01/11/10 documented as of this encounter
--- OUTSIDE RECORDS SUMMARY | 2023-09-07 11:35 | XMS_ITS | Encounter Summary ---
Author Organization [facility] [place] [address] Care Team Providers Care Scientologist Name Role Phone Trinh Coates MD Primary Care Provider [phone] Encounter Details Date Type Department Care Team (Latest Contact Info) Description 01/07/2016 1:31 PM EST - 01/07/2016 11:59 PM [facility] Hospital En[place] [address] Trinh Coates MD [facility] [address] [place] [address] Encounter for screening mammogram for malignant neoplasm of breast Discharge Disposition: Home Social History [...] q 6 hrs daily as needed 11/15/2015 DILTiazem (CARDIZEM CD) 240 mg Capsule, Sust. [...] DR tablet 1 CAP daily 03/27/2014 024 terbinafine (LAMISIL) 250 mg Tablet Take 250 [...] 01/22/2024 10:30 AM EST Appointment Mammography/[place] [address] Ladi Mendosa MD [facility] HEMATOLOGY/[place] [address] 01/30/2024 11:30 AM EST Office Visit Dermatology at [facility] [address] [place] [address] Nilda Luis MD [facility] [address] [place] [address] 02/15/2024 9:30 AM EST Appointment [place] [address] [place] [address] documented as of this encounter Procedures Procedure Name Priority Date/Time Associated Diagnosis Comments MAMMO SCREENING CAD AND BOB BILATERAL Routine 01/07/2016 1:51 PM EST Encounter for screening mammogram for malignant neoplasm of breast documented in this encounter Results * Mammo Screen CAD and Bob Bilat (Generic) (01/07/2016 1:51 PM EST) Anatomical Region Laterality Modality Breast Bilateral Mammography Narrative 01/07/2016 3:32 PM EST BILATERAL MAMMOGRAPHY REASON FOR EXAM: Screening TECHNIQUE: CC and MLO views were obtained of each breast using standard 2-D mammography as well as 3-D tomosynthesis. Computer aided detection was used. This is compared with prior images. FINDINGS: ??The breasts are heterogeneously dense, which may obscure small masses. There are no suspicious microcalcifications, masses, or areas of distortion. The pattern is stable. CONCLUSION: No mammographic evidence of malignancy. RECOMMENDATION: The [employer] and The Society of Breast Imaging recommend annual screening beginning at age 40 for the general female population. Screening should continue as long as a woman is in good health and is expected to live 10 more years or longer. All women should be familiar with the known benefits, limitations, and potential harms linked to breast cancer screening. They should also know how their breasts normally look and feel and report any breast changes to a health care provider right away. Some women - because of their family history, a genetic tendency, or certain other factors - should be screened with MRIs along with mammograms. (The number of women who fall into this category is very small.) The patient and health care provider should discuss the patient history and decide if earlier screening and breast MRI are appropriate. A result letter has been sent to this patient by the [facility]. BIRADS CATEGORY 1: NEGATIVE Trinh Coates MD IMG MAMMO ORDERABLES documented in this encounter Visit Diagnoses Diagnosis Encounter for screening mammogram for malignant neoplasm of breast Other screening mammogram documented in this encounter Care Teams Scientologist Relationship Specialty Start Date End Date Trinh Coates MD [address] [place] [address] [address] [place] [address] PCP - General 01/11/10 documented as of this encounter
--- OUTSIDE RECORDS SUMMARY | 2023-09-07 11:35 | XMS_ITS | Encounter Summary ---
Author Organization [facility] Address [facility] [place] [address] Care Team Providers Care Glove Wrapper Name Role Phone Trinh Coates MD Primary Care Provider [phone] Encounter Details Date Type Department Care Team (Late st Contact Info) Description 03/30/2017 Notes Only Hematology [place] [address] Josias Barnett MD [facility] DR HEMATOLOGY/[place] [address] Social History Tobacco Use Types Packs/Day Years [...] Progress Notes * Josias Barnett MD - 03/30/2017 10:45 AM EST I have reviewed the patient's record and given personal and/or family history of cancer she should be seen by genetic counselor. This is scheduled for next week. documented in this encounter Plan of Treatment Upcoming Encounters Date Type Department Care Team (Late st Contact Info) Description 01/22/2024 10:30 AM EST Appointment Mammography/[place] [address] Ladi Mendosa MD [facility] HEMATOLOGY/[place] [address] 01/30/2024 11:30 AM EST Office Visit Dermatology at [place] [address] [place] [address] Nilda Luis MD [facility] [address] [place] [address] 02/15/2024 9:30 AM EST Appointment Radiology at [place] [phone] [place] [address] documented as of this encounter Visit Diagnoses Not on filedocumented in this encounter Care Teams Glove Wrapper Relationship Specialty Start Date End Date Trinh Coates MD [facility] [address] [facility] 1 [place] [address] PCP - General 01/11/10 documented as of this encounter
--- OUTSIDE RECORDS SUMMARY | 2023-09-07 11:35 | XMS_ITS | Encounter Summary ---
Author Organization [facility] Address [facility]ita [facility] [place] [address] Care Team Providers Care Health Administrator Name Role Phone Trinh Coates MD Primary Care Provider [phone] Encounter Details Date Type Department Care Team (Late st Contact Info) Description 03/29/2017 Notes Only Care Management [facility] [place] [phone] Kassi Gates Social History Tobacco Use Types Packs/Day Years Used Date Smoking Tobacco: Former Smokeless Tobacco: Never Alcohol Use Standard Drinks/Week Comments Yes 0 (1 standard drink = 0.6 oz pur e alcohol) socially Sex and Gender Information Value Date Recorded Sex Assigned at Not on file Gender Identity Not on file Sexual Orientation Not on file documented as of this encounter Progress Notes * Kassi Gates - 03/29/2017 12:29 PM EST OFFICE OF CARE MANAGEMENT/CONTINUING MANAGER TRACK Reason for referral: Wendy Sandoval is a 51 y/o, woman who is seen for surgical consultation following a recent dx of ER/NM+ left breast IDC. Medication Technician Hand Candle Molder met with pt to complete a psychosocial assessment and to explain the role of social work in the breast program. Pt was encouraged to contact me or SESAR Castro, VICENTE if she has any questions or concerns. Living arrangements/social supports: Pt lives in [facility] [place] [facility] with her , Phillip. She reports that she has the support of her , her son and local friends. Her daughter lives about 3000 miles away. 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 Pt has P insurance and denies any financial concerns. Tobacco/drug/alcohol history: Pt denies tobacco use. Pt endorses ETOH use- 1 unit of ETOH every 1-2 months. Student provided education re: ACS recommendations. Adjustment to illness/Mental Health Concerns: Pt endorses having hx of depression and is on Prozac to address this condition. Pt reports that, before her recent dx, her sxs had been well managed. Pt states that her sxs have increased since dx and that her sleep is currently impacted. Student encouraged pt to contact MD if sxs persist, especially sleep disturbance. Summary of Visits: Wendy is a 51 y/o, woman who was seen by Dr. Menendez today following a recent dx of ER/NM+ left breast IDC. Pt appeared overwhelmed and reported that she will meet with genetics counseling and plastic surgery before deciding on a tx plan. Pt has a hx of depression and reports that these sxs have increased since her dx. She agreed to connect with her MD if sxs persist (especially sleep disturbance). Pt has the support of her , son and friends during this time. She works for herself and will be able to make modifications as needed. She has insurance coverage and denied any financial concerns. Plan: CCM and student will continue to follow pt to assess and assist with their psychosocial needs. Kassi Gates BA Medication Technician Hand Candle Molder [facility]/[place] [address] documented in this encounter Plan of Treatment Upcoming Encounters Date Type Department Care Team (Late st Contact Info) Description 01/22/2024 10:30 AM EST Appointment Mammography/[place] [address] Ladi Mendosa MD [facility] HEMATOLOGY/[place] [address] 01/30/2024 11:30 AM EST Office Visit Dermatology at [facility] [address] [place] [address] Nilda Luis MD [facility] [address] [place] [address] 02/15/2024 9:30 AM EST [place] [phone] [place] [address] documented as of this encounter Visit Diagnoses Not on filedocumented in this encounter Care Teams Health Administrator Relationship Specialty Start Date End Date Trinh Coates MD [facility] [address] [facility] [address] [place] [address] PCP - General 01/11/10 documented as of this encounter
--- OUTSIDE RECORDS SUMMARY | 2023-09-07 11:35 | XMS_ITS | Encounter Summary ---
Author Organization [facility] Address [facility] [place] [address] Care Team Providers Care Transportation Dispatcher Name Role Phone Trinh Coates MD Primary Care Provider [phone] Encounter Details Date Type Department Care Team (Late st Contact Info) Description 03/20/2017 Notes [place] [address] Jhonatan Resendiz MD [facility] DIAGNOSTIC [place] [address] Social History Tobacco Use Types Packs/Day Years [...] Progress Notes * Jhonatan Resendiz MD - 03/20/2017 2:30 PM EST Pre-procedure note for needle breast biopsies performed in radiology. Procedure date: Today Procedure type: left breast ultrasound guided biopsy Allergies: Pcn [penicillins] and Zoloft [sertraline] Medications: Current Outpatient Prescriptions: ??? terbinafine (LAMISIL) 250 mg Tablet, Take 250 mg by mouth once a week., Disp: , Rfl: ??? acetaminophen (TYLENOL) 325 mg Tablet, Take 2 tablets by mouth every 4 hours as needed for Pain., Disp: , Rfl: ??? ibuprofen (ADVIL;MOTRIN) 400 mg Tablet, Take 1 tablet by mouth every 6 hours as needed for Pain., Disp: , Rfl: ??? calciTRIol (ROCALTROL) 0.25 mcg Capsule, Take 1 capsule by mouth daily., Disp: 30 tablet, Rfl: 3 ??? DILTiazem (CARDIZEM CD) 240 mg Capsule, Sust. Release 24 hr, Take 1 capsule by mouth daily., Disp: , Rfl: ??? furosemide (LASIX) 20 mg Tablet, Take 1 tablet by mouth daily as needed., Disp: , Rfl: ??? norethindrone (AYGESTIN) 5 mg Tablet, Take 1 tablet by mouth daily., Disp: , Rfl: ??? valsartan (DIOVAN) 160 mg Tablet, Take 1 tablet by mouth daily., Disp: , Rfl: ??? fish oil-omega-3 fatty acids 1,000 mg Capsule, Take 1 g by mouth every other day., Disp: , Rfl: ??? b complex vitamins Capsule, Take 1 capsule by mouth daily., Disp: [...] 2 times daily., Disp: , Rfl: ??? simvastatin (ZOCOR) 10 mg tablet, nightly., Disp: , Rfl: ??? triamcinolone (ARISTOCORT) 0.5 % cream, , Disp: , Rfl: No current facility-administered medications for this visit. Facility-Administered Medications Ordered in Other Visits: ??? lidocaine (XYLOCAINE) 10 mg/mL (1 %) injection 10 mg, 10 mg, Intradermal, Once, Jhonatan Resendiz MD Anticoagulation status: none stopped on: N/A Imaging reviewed and procedural plan approved by Dr. JHONATAN RESENDIZ MD documented in this encounter Plan of Treatment Upcoming Encounters Date Type Department Care Team (Late st Contact Info) Description 01/22/2024 10:30 AM EST Appointment Mammography/[place] [phone] Ladi Mendosa MD [facility] HEMATOLOGY/[place] [address] 01/30/2024 11:30 AM EST Office Visit Dermatology at [place] [address] [place] [phone] Nilda Luis MD [facility] [address] [place] [address] 02/15/2024 9:30 AM [place] [phone] [place] [address] documented as of this encounter Visit Diagnoses Not on filedocumented in this encounter Care Teams Transportation Dispatcher Relationship Specialty Start Date End Date Trinh Coates MD [facility] [address] [place] [address] PCP - General 01/11/10 documented as of this encounter
--- OUTSIDE RECORDS SUMMARY | 2023-09-07 11:35 | XMS_ITS | Encounter Summary ---
Author Organization [facility] Address [facility] [place] [address] Care Team Providers Care Isobutylene Operator Chief Name Role Phone Trinh Coates MD Primary Care Provider [phone] Encounter Details Date Type Department Care Team (Latest Contact Info) Description 03/29/2017 9:55 AM EST Laboratory Appointment Lab [address] [place] [phone] Malignant neoplasm of left female breast, unspecified estrogen receptor status, unspecified site of breast; Ureteral stone Social History Tobacco Use Types Packs/Day Years [...] 10:30 AM EST Appointment Mammography/[place] [phone] Ladi Mendosa MD [facility] DR HEMATOLOGY/[place] [address] 01/30/2024 11:30 AM EST Office Visit Dermatology at [facility] [address] [place] [address] Nilda Luis MD [facility] [place] [address] 02/15/2024 9:30 AM EST [place] [phone] [place] [address] documented as of this encounter Procedures Procedure Name Priority Date/Time Associated Diagnosis Comments URINALYSIS MICROSCOPIC EXAM Routine 03/29/2017 2:27 PM EST URINALYSIS WITH REFLEX CULTURE Routine 03/29/2017 2:27 PM EST Ureteral stone HEMOGRAM Routine 03/29/2017 10:21 AM EST Malignant neoplasm of left female breast, unspecified estrogen receptor status, unspecified site of breast DIFFERENTIAL, AUTOMATED Routine 03/29/2017 10:21 AM EST Malignant neoplasm of left female breast, unspecified estrogen receptor status, unspecified site of breast CBC (WITH DIFF) Routine 03/29/2017 10:21 AM EST Malignant neoplasm of left female breast, unspecified estrogen receptor status, unspecified site of breast COMPREHENSIVE METABOLIC PANEL (NON-FASTING) Routine 03/29/2017 10:21 AM EST Malignant neoplasm of left female breast, unspecified estrogen receptor status, unspecified site of breast documented in this encounter Results * (ABNORMAL) Urinalysis Microscopic Exam (03/29/2017 2:27 PM EST) RBC UA 3 0 - 4 /HPF [facility] WBC UA 5 0 - 5 /HPF [facility] Bacteria UA Rare(A) None /HPF [facility] Squam Epith UA 3 <=4 /HPF [facility] Hyaline Cast UA 1 0 - 2 /LPF [facility] Urine specimen obtained by clean catch procedure (specimen) 03/29/2017 2:27 PM EST 03/29/2017 2:34 PM EST Narrative Resulting Agency Comment Spec In Lab Jolie Menendez MD URINE ORDERABLES [facility] [place] [address] * (ABNORMAL) Urinalysis with reflex Culture (03/29/2017 2:27 PM EST) Glucose UA Negative Negative mg/dL [facility] Protein UA >=500(A) Negative mg/dL [facility] Bilirubin UA Negative Negative mg/dL [facility] Comment: Clinical correlation required for positive Urine Bilirubin results as false positive may occur with some drugs and drug related products. If a false positive is suspected a serum total bilirubin should be considered if clinically indicated. Urobilinogen UA Normal Normal mg/dL [facility] pH UA 5.0 5.0 - 8.0 [facility] Blood UA Negative Negative mg/dL [facility] Ketones UA Negative Negative mg/dL [facility] Nitrite UA Negative Negative [facility] Leukocytes UA Negative Negative [facility] Appearance UA Hazy(A) Clear [facility] Spec Bronson UA 1.024 1.002 - 1.030 [facility] Color UA Yellow Yellow [facility] Culture Reflexed No [facility] Urine specimen obtained by clean catch procedure (specimen) 03/29/2017 2:27 PM EST 03/29/2017 2:34 PM EST Narrative Resulting Agency Comment Spec In Lab Jolie Menendez MD URINE ORDERABLES [facility] [place] [address] * (ABNORMAL) Differential, Automated (03/29/2017 10:21 AM EST) Neutrophils % 69.5 % [facility] Neutr Abs (ANC) 11.31(H) 1.70 - 6.10 x10(3)/[facility] Lymphocytes % 16.1 % [facility] Lymphocytes Abs 2.6 0.9 - 3.2 x10(3)/[facility] Monocytes % 8.9 % [facility] Monocyte Abs 1.4(H) 0.3 - 0.9 x10(3)/[facility] Eosinophils % 2.8 % [facility] Eosinophils Abs 0.5(H) 0.0 - 0.4 x10(3)/[facility] Basophils % 1.2 % [facility] Basophils Abs 0.2(H) 0.0 - 0.1 x10(3)/[facility] Immature Gran % 1.50 % [facility] Comment: Immature granulocytes(IG's)percentage and absolute count will include metamyelocytes, myelocytes, and promyelocytes. Blood smears from CBCs yielding IG's will be scanned manually for concordance. If this scan disagrees with the automated IG or if promyelocytes are noted, a manual differential will be performed. Nova Gran Abs 0.25(H) 0.00 - 0.04 x10(3)/[facility] Blood specimen (specimen) 03/29/2017 10:21 AM EST 03/29/2017 10:30 AM EST Narrative Resulting Agency Comment Spec In Lab Jolie Menendez MD HEMATOLOGY ORDERABL ES [facility] [place] [address] * (ABNORMAL) Hemogram (03/29/2017 10:21 AM EST) WBC 16.3(H) 4.0 - 9.5 x10(3)/[facility] RBC 4.50 4.00 - 5.21 x10(6)/[facility] Hemoglobin 14.3 11.7 - 15.5 gm/dL [facility] Hematocrit 41.6 35.7 - 45.8 % [facility] MCV 92.4 82.6 - 94.4 [facility] MCH 31.8 27.1 - 32.0 pg [facility] MCHC 34.4 31.7 - 35.0 gm/dL [facility] Platelets 341 145 - 357 x10(3)/[facility] RDWSD 44.7 37.0 - 46.0 fL [facility] RDWCV 13.1 11.5 - 14.1 % [facility] MPV 9.1 7.6 - 12.9 [facility] nRBC % Auto 0.0 % [facility] nRBC Abs Auto 0.000 0.000 - 0.000 x10(3)/[facility] Blood specimen (specimen) 03/29/2017 10:21 AM EST 03/29/2017 10:30 AM EST Narrative Resulting Agency Comment Spec In Lab Jolie Menendez MD HEMATOLOGY ORDERABL ES [facility] [place] [address] * (ABNORMAL) Comprehensive metabolic panel (non-fasting) (03/29/2017 10:21 AM EST) Glucose Lvl 134 65 - 199 mg/dL [facility] Comment:Diabetes: >=200 mg/d L plus symptoms BUN 16 8 - 18 mg/dL [facility] Creatinine 1.01 0.70 - 1.20 mg/dL [facility] Sodium 141 135 - 145 mmol/L [facility] Potassium 3.7 3.5 - 5.0 mmol/L [facility] Comment: Please note: ??Patients with WBC >100,000 may have falsely elevated Potassium levels. ??For accurate Potassium quantification in these patients send serum separator tube (gold top) for subsequent determinations. ??Contact the Clinical Chemistry Laboratory if there are any questions. Chloride 101 98 - 107 mmol/L [facility] CO2 27 22 - 31 mmol/L [facility] Anion Gap 13 5 - 15 mmol/L [facility] Calcium 9.0 8.5 - 10.5 mg/dL [facility] Total Protein 6.6 6.1 - 8.0 gm/dL [facility] Albumin 3.9 3.2 - 5.2 gm/dL [facility] AST 12 0 - 30 unit/L [facility] ALT 21 0 - 30 unit/L [facility] Alk Phos 79 40 - 104 unit/L [facility] Total Bilirubin 0.5 0.2 - 1.3 mg/dL [facility] Estimated GFR 57(L) >=60 [facility] Comment: The reported eGFR should be multiplied by 1.2 for patients. The MDRD is not an appropriate measure of renal function for patients with body mass extremes or in patients with acute kidney failure. http://itravel.doo/DHnkdep http://FleAffair/DHMCnkf Blood specimen (specimen) 03/29/2017 10:21 AM EST 03/29/2017 10:30 AM EST Narrative Resulting Agency Comment Spec In Lab Jolie Menendez MD CHEMISTRY ORDERABLE S [facility] [place] [address] documented in this encounter Visit Diagnoses Diagnosis Malignant neoplasm of left female breast, unspecified estrogen receptor status, unspecified site of breast Ureteral stone Calculus of ureter documented in this encounter Care Teams Isobutylene Operator Chief Relationship Specialty Start Date End Date Trinh Coates MD [address] [place] [address] PCP - General 01/11/10 documented as of this encounter
--- OUTSIDE RECORDS SUMMARY | 2023-09-07 11:35 | XMS_ITS | Encounter Summary ---
Author Organization [facility] Address [facility] [place] [address] Care Team Providers Care Freight Clerk Name Role Phone Trinh Coates MD Primary Care Provider [phone] Encounter Details Date Type Department Care Team (Latest Contact Info) Description 03/20/2017 2:16 PM EST - 03/20/2017 11:59 PM [facility] Hospital [place] [address] Jhonatan Resendiz MD [facility] [place] [address] Abnormal finding on breast imaging Discharge Disposition: [...] 01/22/2024 10:30 AM EST Appointment Mammography/[place] [phone] Ladi Mendosa MD [facility] HEMATOLOGY/[place] [address] 01/30/2024 11:30 AM EST Office Visit Dermatology at [place] [address] [place] [address] Nilda Luis MD [facility] DR [address] [place] [address] 02/15/2024 9:30 AM EST [place] [address] [place] [address] documented as of this encounter Procedures Procedure Name Priority Date/Time Associated Diagnosis Comments MAMMO DIRECT DIGITAL WITH CAD LEFT Routine 03/20/2017 3:09 PM EST Abnormal finding on breast imaging documented in this encounter Results * Mammo Direct Digital Left (03/20/2017 3:09 PM EST) Anatomical Region Laterality Modality Breast Left Mammography Impressions 03/21/2017 2:49 PM EST Concordant malignant result RECOMMENDATION: Definitive management. I discussed these results and recommendations with the patient on 03/21/2017 at 1447 hours. REVIEW PATH CONFERENCE?: No Narrative 03/21/2017 2:49 PM EST LEFT BREAST ULTRASOUND GUIDED AUTOMATED [...] obtained using a 14-gauge automated device. A [employer] [place] 14G marker clip was placed. The clip [...] Invasive carcinoma PATHOLOGIC DIAGNOSIS: Invasive carcinoma Jhonatan Resendiz MD IMG MAMMO ORDERABL ES documented in this encounter Visit Diagnoses Diagnosis Abnormal finding on breast imaging Other (abnormal) findings on radiological examination of breast documented in this encounter Care Teams Freight Clerk Relationship Specialty Start Date End Date Trinh Coates MD [address] [place] [address] PCP - General 01/11/10 documented as of this encounter
--- OUTSIDE RECORDS SUMMARY | 2023-09-07 11:35 | XMS_ITS | Encounter Summary ---
Author Organization [facility] Address [facility] [place] [address] Care Team Providers Care Material Preparation Worker Name Role Phone Trinh Coates MD Primary Care Provider [phone] Encounter Details Date Type Department Care Team (Latest Contact Info) Description 12/09/2015 10:00 AM EDT Laboratory Appointment Lab [address] [place] [phone] Essential hypertension; History of hyperparathyroidism Social History Tobacco Use [...] 01/22/2024 10:30 AM EST Appointment Mammography/[place] [address] Ladi Mendosa MD [facility] HEMATOLOGY/[place] [address] 01/30/2024 11:30 AM EST Office Visit Dermatology at [facility] [address] [place] [phone] Nilda Luis MD [facility] [place] [address] 02/15/2024 9:30 AM EST Appointment [place] [address] [place] [address] documented as of this encounter Procedures Procedure Name Priority Date/Time Associated Diagnosis Comments PTH Routine 12/09/2015 10:20 AM EDT History of hyperparathyroidism CALCIUM Routine 12/09/2015 10:20 AM EDT Essential hypertension documented in this encounter Results * PTH (12/09/2015 10:20 AM EDT) PTH 18 15 - 65 pg/mL [facility] Blood specimen (specimen) 12/09/2015 10:20 AM EDT 12/09/2015 10:25 AM EDT Narrative Resulting Agency Comment Spec In Lab Valentina Lucas MD CHEMISTRY ORDERAB LES Performing Organization Address City/[facility]/ZIP Co de Phone Number [facility] [place] [address] * Calcium (12/09/2015 10:20 AM EDT) Calcium 9.3 8.5 - 10.5 mg/dL [facility] Blood specimen (specimen) 12/09/2015 10:20 AM EDT 12/09/2015 10:25 AM EDT Narrative Resulting Agency Comment Spec In Lab Valentina Lucas MD CHEMISTRY ORDERAB LES Performing Organization Address City/[facility]/ZIP Co de Phone Number [facility] [place] [address] documented in this encounter Visit Diagnoses Diagnosis Essential hypertension Unspecified essential hypertension History of hyperparathyroidism Personal history of other endocrine, metabolic, and immunity disorders documented in this encounter Care Teams Material Preparation Worker Relationship Specialty Start Date End Date Trinh Coates MD [address] [place] [address] PCP - General 01/11/10 documented as of this encounter
--- OUTSIDE RECORDS SUMMARY | 2023-09-07 11:35 | XMS_ITS | Encounter Summary ---
Author Organization [facility] Address [facility] [place] [address] Care Team Providers Care Travel Accommodations Rater Name Role Phone Trinh Coates MD Primary Care Provider Encounter Details Date Type Department Care Team (Late st Contact Info) Description 03/22/2017 Orders [place] [phone] Jolie Menendez MD [facility] [place] [address] Social History Tobacco Use Types Packs/Day Years [...] 01/22/2024 10:30 AM EST Appointment Mammography/[place] [phone] Ladi Mendosa MD [facility] HEMATOLOGY/[place] [address] 01/30/2024 11:30 AM EST Office Visit Dermatology at [facility] [address] [place] [address] Nilda Luis MD [facility] [address] [address] 02/15/2024 9:30 AM EST [place] [phone] [place] [address] documented as of this encounter Visit Diagnoses Not on filedocumented in this encounter Care Teams Travel Accommodations Rater Relationship Specialty Start Date End Date Trinh Coates MD [facility] [address] [address] PCP - General 01/11/10 documented as of this encounter
--- OUTSIDE RECORDS SUMMARY | 2023-09-07 11:35 | XMS_ITS | Encounter Summary ---
Author Organization [facility] [place] [address] Care Team Providers Care Set Builder Name Role Phone Trinh Coates MD Primary Care Provider [phone] Encounter Details Date Type Department Care Team (Latest Contact Info) Description 03/12/2017 1:21 PM EST - 03/12/2017 11:59 PM [facility] Hospital [place] [address] Trinh Coates MD [facility] [address] [place] [address] Encounter for screening mammogram for breast cancer Discharge Disposition: Home Social History Tobacco Use [...] 01/22/2024 10:30 AM EST Appointment Mammography/[place] [phone] Ladi Mendosa MD [facility] HEMATOLOGY/[place] [address] 01/30/2024 11:30 AM EST Office Visit Dermatology at [address] [place] [phone] Nilda Luis MD [facility] [place] [address] 02/15/2024 9:30 AM [place] [phone] [place] [address] documented as of this encounter Procedures Procedure Name Priority Date/Time Associated Diagnosis Comments MAMMO SCREENING CAD AND BOB BILATERAL Routine 03/12/2017 1:38 PM EST Encounter for screening mammogram for breast cancer documented in this encounter Results * Mammo [...] nipple. Trinh Coates MD IMG MAMMO ORDERABLES documented in this encounter Visit Diagnoses Diagnosis Encounter for screening mammogram for breast cancer documented in this encounter Care Teams Set Builder Relationship Specialty Start Date End Date Trinh Coates MD [address] [facility] 1 [place] [address] PCP - General 01/11/10 documented as of this encounter
--- OUTSIDE RECORDS SUMMARY | 2023-09-07 11:35 | XMS_ITS | Encounter Summary ---
Author Organization [facility] Address [facility] [place] [address] Care Team Providers Care Senior Business Broker Name Role Phone Trinh Coates MD Primary Care Provider [phone] Encounter Details Date Type Department Care Team (Late st Contact Info) Description 11/09/2015 Telephone [place] [phone] Valentina Lucas MD [facility] [place] [address] Social History Tobacco Use Types Packs/Day Years [...] encounter Miscellaneous Notes * Telephone Encounter - Valentina Lucas MD - 11/09/2015 5:13 PM EDT I called Ms. Wendy Sandoval today to discuss the results of her pathology. Specifically, this demonstrated three parathyroid glands. Currently taking 2 tabs citrical max TID plus 0.25mcg calcitriol Her voice sounds normal. She is overall feeling nauseated and fatigued with occasional tingling. Itdoesn't seem to help if she takes more or less calcium or calcitriol. In light of her normal calcium level (8.7) last Sunday, I told her she can experiment with adding an extra calcium dose or doubling her calcitriol. I recommended ibuprofen for the sensation of the lump in her throat. She will check in via my in the next week or so. documented in this encounter Plan of Treatment Upcoming Encounters Date Type Department Care Team (Late st Contact Info) Description 01/22/2024 10:30 AM EST Appointment Mammography/DXA at [place] [phone] Ladi Mendosa MD [facility] HEMATOLOGY/[place] [address] 01/30/2024 11:30 AM EST Office Visit Dermatology at [address] [phone] Nilda Luis MD [facility] DR L[address] AME[place]CU[place] [address] 02/15/2024 9:30 AM EST [place] [address] [place] [address] documented as of this encounter Visit Diagnoses Not on filedocumented in this encounter Care Teams Senior Business Broker Relationship Specialty Start Date End Date Trinh Coates MD [address] [place] [address] PCP - General 01/11/10 documented as of this encounter
--- OUTSIDE RECORDS SUMMARY | 2023-09-07 11:35 | XMS_ITS | Encounter Summary ---
Author Organization [facility] Address [facility] [place] [place] [address] Care Team Providers Care Cotton Bag Clipper Name Role Phone Trinh Coates MD Primary Care Provider [phone] Encounter Details Date Type Department Care Team (Late st Contact Info) Description 04/05/2017 Telephone [place] [phone] Flor Salguero Social History Tobacco Use Types Packs/Day Years [...] encounter Miscellaneous Notes * Telephone Encounter - Flor Salguero - 04/05/2017 10:[address] safety Q documented in this encounter Plan of Treatment Upcoming Encounters Date Type Department Care Team (Late st Contact Info) Description 01/22/2024 10:30 AM EST Appointment Mammography/[place] [phone] Ladi Mendosa MD [facility] HEMATOLOGY/[place] [address] 01/30/2024 11:30 AM EST Office Visit Dermatology at [facility] [address] [place] [address] Nilda Luis MD [facility] DR L[address] [place] [address] 02/15/2024 9:30 AM EST Appoint[place] [phone] [place] [address] documented as of this encounter Visit Diagnoses Not on filedocumented in this encounter Care Teams Cotton Bag Clipper Relationship Specialty Start Date End Date Trinh Coates MD [address] [facility] 1 [place] [address] PCP - General 01/11/10 documented as of this encounter
--- OUTSIDE RECORDS SUMMARY | 2023-09-07 11:36 | XMS_ITS | Encounter Summary ---
Author Organization [facility] Address [facility] [place] [address] Care Team Providers Care Rand Cementer Name Role Phone Trinh Coates MD Primary Care Provider [phone] Encounter Details Date Type Department Care Team (Late st Contact Info) Description 08/13/2014 Ancillary Procedure [place] [phone] Trinh Coates MD [address] [place] [address] [facility] 1 [place] [address] Social History Tobacco Use Types Packs/Day Years Used Date Smoking Tobacco: Former Sex and Gender Information Value Date Recorded Sex Assigned at Not on file Gender Identity Not on file Sexual Orientation Not on file documented as of this encounter Plan of Treatment Upcoming Encounters Date Type Department Care Team (Late st Contact Info) Description 01/22/2024 10:30 AM EST Appointment Mammography[place] [phone] Ladi Mendosa MD [facility] HEMATOLOGY/[place] [address] 01/30/2024 11:30 AM EST Office Visit Dermatology at [facility] [address] [place] [phone] Nilda Luis MD [facility] DR L[address] [place] [address] 02/15/2024 9:30 AM EST [place] [address] [place] [address] documented as of this encounter Procedures Procedure Name Priority Date/Time Associated Diagnosis Comments FILM LIBRARY STORAGE ONLY DX HAND Routine 08/13/2014 12:00 AM EDT documented in this encounter Results * Film Library- Storage Only DX Hand (08/13/2014 12:00 AM EDT) Narrative [facility][NOTE 3] - 12/01/2021 4:34 AM EDT This exam is auto-finalizing. It's purpose is for storage only. Trinh Coates MD IMG FILM LIBRARY ORD ERABLES [place], [place] documented in this encounter Visit Diagnoses Not on filedocumented in this encounter Care Teams Rand Cementer Relationship Specialty Start Date End Date Trinh Coates MD [facility] [address] [place] [address] PCP - General 01/11/10 documented as of this encounter
--- OUTSIDE RECORDS SUMMARY | 2023-09-07 11:36 | XMS_ITS | Encounter Summary ---
Author Organization [facility] Address [facility] [place] [address] Care Team Providers Care Merchandise Executive Name Role Phone Trinh Coates MD Primary Care Provider [phone] Encounter Details Date Type Department Care Team (Late st Contact Info) Description 03/30/2014 Telephone Dermatology at [facility] [address] [place] [phone] Ernestine Gaines MD [facility] [address] [address] Social History Tobacco Use Types Packs/Day Years Used Date Smoking Tobacco: Former Sex and Gender Information Value Date Recorded Sex Assigned at Not on file Gender Identity Not on file Sexual Orientation Not on file documented as of this encounter Miscellaneous Notes * Telephone Encounter - Kamilla Singh - 04/07/2014 10:[address] Gaines patient Miriam, Ms. Sandoval would like her prescription for clobetasol be sent to [facility] [address] [place] [address], [address] [place] [address] since it is cheaper. Please advise when her prescription has been sent, and I can notify her at [phone]. Thank you, Kamilla * Telephone Encounter - Ander Mcfarland - 03/30/2014 10:48 AM EST PATIENT CALLED TODAY WOULD LIKE A REFILL ON clobetasol (TEMOVATE) 0.05 % cream PATIENTS #[phone] documented in this encounter Plan of Treatment Upcoming Encounters Date Type Department Care Team (Late st Contact Info) Description 01/22/2024 10:30 AM EST Appointment Mammography/[place] [phone] Ladi Mendosa MD [facility] HEMATOLOGY/[place] [address] 01/30/2024 11:30 AM EST Office Visit Dermatology at [place] [address] [place] [address] Nilda Luis MD [facility] [address] [address] 02/15/2024 9:30 AM EST Appointment [place] [address] [place] [address] documented as of this encounter Visit Diagnoses Not on filedocumented in this encounter Care Teams Merchandise Executive Relationship Specialty Start Date End Date Trinh Coates MD [address] [place] [address] PCP - General 01/11/10 documented as of this encounter
--- OUTSIDE RECORDS SUMMARY | 2023-09-07 11:36 | XMS_ITS | Encounter Summary ---
Author Organization [facility] [place] [address] Care Team Providers Care Power Distribution Engineer Name Role Phone Trinh Coates MD Primary Care Provider [phone] Encounter Details Date Type Department Care Team (Latest Contact Info) Description 12/04/2014 9:48 AM EDT - 12/04/2014 11:59 PM EDT Hospital [place] [address] Trinh Coates MD [address] [place] [address] [address] [place] [address] Screening breast examination Discharge Disposition: Home Social History Tobacco Use [...] Take 40 mg by mouth daily. 10/31/2012 clobetasol (TEMOVATE) 0.05 % CreamIndications:Psorias is Apply to affected areas on knees, elbows and hands twice daily for two week cycles as needed. 60 g 3 04/16/2014 10/20/2019 ferrous sulfate (FeroSul) 325 mg (65 mg iron) tablet 1 tablet. 01/26/2014 05/15/2023 omeprazole (PriLOSEC OTC) [address] tablet 1 CAP daily 03/27/2014 024 cholecalciferol, Vitamin D3, 2,000 unit CapsuleIndications:Prote inuria,Essential hypertension,Hypercalcem ia Take by mouth daily. 016 ascorbic acid (VITAMIN C) 500 mg Tablet, ChewableIndications:Prot einuria,Essential hypertension,Hypercalcem ia Take by mouth. 10/15/2015 terbinafine (LAMISIL) 250 mg tablet Take 250 mg by mouth daily. 12/09/2015 CARDIZEM LA 240 mg Tablet SR daily. 10/31/2012 10/15/2015 KLOR-CON M20 20 mEq extended release tablet 2 times daily. 10/31/2012 simvastatin (ZOCOR) 10 mg tablet nightly. 10/31/2012 03/29/2017 triamcinolone (ARISTOCORT) 0.5 % cream 10/24/201209/2017 Valsartan-Hydrochlorothi azide 160-25 mg Tab daily. 10/31/2012 10/15/19 16 documented as of this encounter Plan of Treatment Upcoming Encounters Date Type Department Care Team (Late st Contact Info) Description 01/22/2024 10:30 AM EST Appointment Mammography[place] [phone] Ladi Mendosa MD [facility] HEMATOLOGY/[place] [address] 01/30/2024 11:30 AM EST Office Visit Dermatology at [address] [phone] Nilda Luis MD [facility] DR LID[address] [place] [address] 02/15/2024 9:30 AM [place] [phone] [place] [address] documented as of this encounter Procedures Procedure Name Priority Date/Time Associated Diagnosis Comments MAMMO 2D DIGITAL SCREEN BOB BILATERAL Routine 12/04/2014 10:12 AM EDT Screening breast examination documented in this encounter Results * Mammo Screen Bob 2D Bilateral (12/04/2014 10:12 AM EDT) Anatomical Region Laterality Modality Breast Bilateral Mammography Narrative 12/04/2014 10:56 AM EDT BILATERAL MAMMOGRAPHY REASON FOR EXAM: Screening TECHNIQUE: [...] stable. CONCLUSION: No mammographic evidence of malignancy. RECOMMENDATION Routine screening mammography is recommended with the frequency dependent on the patient? s age, breast cancer risk factors and preference. Additional studies may be recommended for women with higher than average risk for breast cancer. A result letter has been sent to this patient by [facility]. BIRADS CATEGORY 1: NEGATIVE Trinh Coates MD IMG MAMMO ORDERABLES documented in this encounter Visit Diagnoses Diagnosis Screening breast examination (Not by Mammogram) Other screening breast examination documented in this encounter Care Teams Power Distribution Engineer Relationship Specialty Start Date End Date Trinh Coates MD [facility] [address] [facility] [address] [place] [address] PCP - General 01/11/10 documented as of this encounter
--- OUTSIDE RECORDS SUMMARY | 2023-09-07 11:36 | XMS_ITS | Encounter Summary ---
Author Organization [facility] Address [facility] [place] [address] Care Team Providers Care Lithographer Helper Name Role Phone Trinh Coates MD Primary Care Provider [phone] Encounter Details Date Type Department Care Team (Late st Contact Info) Description 10/30/2012 [place] [phone] Usman Payne MD [facility] [place] [address] Abnormal findings on diagnostic imaging of breast (Primary Dx) Social History Tobacco Use Types Packs/Day Years Used Date Smoking Tobacco: Never Assessed Sex and Gender Information Value Date Recorded Sex Assigned at Not on file Gender Identity Not on file Sexual Orientation Not on file documented as of this encounter Plan of Treatment Upcoming Encounters Date Type Department Care Team (Late st Contact Info) Description 01/22/2024 10:30 AM EST Appointment Mammography/[place] [phone] Ladi Mendosa MD [facility] HEMATOLOGY/[place] [address] 01/30/2024 11:30 AM EST Office Visit Dermatology at [facility] [address] [place] [phone] Nilda Luis MD [facility] DR [address] [place] [address] 02/15/2024 9:30 AM [place] [address] [place] [address] documented as of this encounter Results * Mammo specimen (11/07/2012 11:03 AM EDT) Anatomical Region Laterality Modality Breast N/A Mammography 11/07/2012 11:0 3 AM EDT Impressions 11/11/2012 12:34 PM EDT Impression: concordant Recommendation: Follow up mammogram with magnification views in 6 months. Results discussed with Ms. Sandoval on 11/09/12. ?? I performed the procedure without a resident. Home phone: [phone] Work phone: [phone] Narrative 11/11/2012 12:34 PM EDT VACUUM ASSISTED STEREOTACTIC GUIDED BIOPSY OF THE RIGHT BREAST ON 11/07/12: Informed consent was obtained. Using sterile technique and 1% lidocaine used for local anesthesia, a skin incision was made and a biopsy was performed from a CC approach using stereotactic guidance for image guidance. Clinical indication: Right breast 6mm cluster of calcifications in the upper central quadrant at 1200, 8.5 to 9cm from the nipple. An AccutFit Lorad Stage drape was used to cover the track of the biopsy device. ?? 9-gauge Eviva Regular device 6 core biopsy specimens obtained. The specimen was X-rayed; the calcifications are present on specimen digital X-ray. A NLT SPINE Eviva-Stereo 13 Cylinder marker clip was placed. Cranio-caudal and lateral digital mammography performed to determine biopsy marker placement, which was shown to be at the biopsy site. Satisfactory sampling was obtained. There were no procedural complications. Imaging diagnosis: Adenosis versus DCIS. Pathologic diagnosis: 1. Intraductal papilloma with columnar cell ?hyperplasia, usual ductal hyperplasia, and ?apocrine change (largely excised) ? 2. Clustered apocrine cysts ? Microcalcifications: ??Associated with intraductal papilloma ? CR-0 Procedure Note Mary Sanchez MD - 11/11/2012 VACUUM ASSISTED STEREOTACTIC GUIDED BIOPSY OF THE RIGHT BREAST ON11/07/12: Informed consent was obtained. Using sterile technique and 1% lidocaineused for local anesthesia, a skin incision was made and a biopsy was performedfrom a CC approach using stereotactic guidance for image guidance. Clinical indication: Right breast 6mm cluster of calcifications in theupper central quadrant at 1200, 8.5 to 9cm from the nipple. An AccutFit Lorad Stage drape was used to cover the track of the biopsydevice. 9-gauge Eviva Regular device 6 core biopsy specimens obtained. The specimen was X-rayed; the calcifications are present on specimendigital X-ray. A Lexyrk Eviva-Stereo 13 Cylinder marker clip was placed. Cranio-caudal and lateral digital mammography performed to determine biopsy markerplacement, which was shown to be at the biopsy site. Satisfactory sampling was obtained. There were no procedural complications. Imaging diagnosis: Adenosis versus DCIS. Pathologic diagnosis: 1. Intraductal papilloma with columnar cell hyperplasia, usual ductal hyperplasia, and apocrine change (largely excised) 2. Clustered apocrine cysts Microcalcifications: Associated with intraductal papilloma CR-0 IMPRESSION Impression: concordant Recommendation: Follow up mammogram with magnification views in 6 months. Results discussed with Ms. Sandoval on 11/09/12. I performed the procedure without a resident. Home phone: [phone] Work phone: [phone] Usman Payne MD IMG MAMMO ORDERABLES * Mammo stereotactic (11/07/2012 11:03 AM EDT) Anatomical Region Laterality Modality Breast N/A Mammography 11/07/2012 11:0 3 AM EDT Impressions 11/11/2012 12:34 PM EDT Impression: concordant Recommendation: Follow up mammogram with magnification views in 6 months. Results discussed with Ms. Sandoval on 11/09/12. ?? I performed the procedure without a resident. Home phone: [phone] Work phone: [phone] Narrative 11/11/2012 12:34 PM EDT VACUUM ASSISTED STEREOTACTIC GUIDED BIOPSY OF THE RIGHT BREAST ON 11/07/12: Informed consent was obtained. Using sterile technique and 1% lidocaine used for local anesthesia, a skin incision was made and a biopsy was performed from a CC approach using stereotactic guidance for image guidance. Clinical indication: Right breast 6mm cluster of calcifications in the upper central quadrant at 1200, 8.5 to 9cm from the nipple. An AccutFit Lorad Stage drape was used to cover the track of the biopsy device. ?? 9-gauge Eviva Regular device 6 core biopsy specimens obtained. The specimen was X-rayed; the calcifications are present on specimen digital X-ray. A Lexyrk Eviva-Stereo 13 Cylinder marker clip was placed. Cranio-caudal and lateral digital mammography performed to determine biopsy marker placement, which was shown to be at the biopsy site. Satisfactory sampling was obtained. There were no procedural complications. Imaging diagnosis: Adenosis versus DCIS. Pathologic diagnosis: 1. Intraductal papilloma with columnar cell ?hyperplasia, usual ductal hyperplasia, and ?apocrine change (largely excised) ? 2. Clustered apocrine cysts ? Microcalcifications: ??Associated with intraductal papilloma ? CR-0 Procedure Note Mary Sanchez MD - 11/11/2012 VACUUM ASSISTED STEREOTACTIC GUIDED BIOPSY OF THE RIGHT BREAST ON11/07/12: Informed consent was obtained. Using sterile technique and 1% lidocaineused for local anesthesia, a skin incision was made and a biopsy was performedfrom a CC approach using stereotactic guidance for image guidance. Clinical indication: Right breast 6mm cluster of calcifications in theupper central quadrant at 1200, 8.5 to 9cm from the nipple. An AccutFit Lorad Stage drape was used to cover the track of the biopsydevice. 9-gauge Eviva Regular device 6 core biopsy specimens obtained. The specimen was X-rayed; the calcifications are present on specimendigital X-ray. A SMark Eviva-Stereo 13 Cylinder marker clip was placed. Cranio-caudal and lateral digital mammography performed to determine biopsy markerplacement, which was shown to be at the biopsy site. Satisfactory sampling was obtained. There were no procedural complications. Imaging diagnosis: Adenosis versus DCIS. Pathologic diagnosis: 1. Intraductal papilloma with columnar cell hyperplasia, usual ductal hyperplasia, and apocrine change (largely excised) 2. Clustered apocrine cysts Microcalcifications: Associated with intraductal papilloma CR-0 IMPRESSION Impression: concordant Recommendation: Follow up mammogram with magnification views in 6 months. Results discussed with Ms. Sandoval on 11/09/12. I performed the procedure without a resident. Home phone: [phone] Work phone: [phone] Usman Payne MD IMG MAMMO ORDERABLES * Mammo direct digital unilateral (11/07/2012 11:01 AM EDT) Anatomical Region Laterality Modality Breast N/A Mammography 11/07/2012 11:0 1 AM EDT Impressions 11/11/2012 12:34 PM EDT Impression: concordant Recommendation: Follow up mammogram with magnification views in 6 months. Results discussed with Mary Jo Lori on 11/09/12. ?? I performed the procedure without a resident. Home phone: [phone] Work phone: [phone] Narrative 11/11/2012 12:34 PM EDT VACUUM ASSISTED STEREOTACTIC GUIDED BIOPSY OF THE RIGHT BREAST ON 11/07/12: Informed consent was obtained. Using sterile technique and 1% lidocaine used for local anesthesia, a skin incision was made and a biopsy was performed from a CC approach using stereotactic guidance for image guidance. Clinical indication: Right breast 6mm cluster of calcifications in the upper central quadrant at 1200, 8.5 to 9cm from the nipple. An AccutFit Lorad Stage drape was used to cover the track of the biopsy device. ?? 9-gauge Eviva Regular device 6 core biopsy specimens obtained. The specimen was X-rayed; the calcifications are present on specimen digital X-ray. A SMark Eviva-Stereo 13 Cylinder marker clip was placed. Cranio-caudal and lateral digital mammography performed to determine biopsy marker placement, which was shown to be at the biopsy site. Satisfactory sampling was obtained. There were no procedural complications. Imaging diagnosis: Adenosis versus DCIS. Pathologic diagnosis: 1. Intraductal papilloma with columnar cell ?hyperplasia, usual ductal hyperplasia, and ?apocrine change (largely excised) ? 2. Clustered apocrine cysts ? Microcalcifications: ??Associated with intraductal papilloma ? CR-0 Procedure Note Mary Sanchez MD - 11/11/2012 VACUUM ASSISTED STEREOTACTIC GUIDED BIOPSY OF THE RIGHT BREAST ON11/07/12: Informed consent was obtained. Using sterile technique and 1% lidocaineused for local anesthesia, a skin incision was made and a biopsy was performedfrom a CC approach using stereotactic guidance for image guidance. Clinical indication: Right breast 6mm cluster of calcifications in theupper central quadrant at 1200, 8.5 to 9cm from the nipple. An AccutFit Lorad Stage drape was used to cover the track of the biopsydevice. 9-gauge Eviva Regular device 6 core biopsy specimens obtained. The specimen was X-rayed; the calcifications are present on specimendigital X-ray. A SMark Eviva-Stereo 13 Cylinder marker clip was placed. Cranio-caudal and lateral digital mammography performed to determine biopsy markerplacement, which was shown to be at the biopsy site. Satisfactory sampling was obtained. There were no procedural complications. Imaging diagnosis: Adenosis versus DCIS. Pathologic diagnosis: 1. Intraductal papilloma with columnar cell hyperplasia, usual ductal hyperplasia, and apocrine change (largely excised) 2. Clustered apocrine cysts Microcalcifications: Associated with intraductal papilloma CR-0 IMPRESSION Impression: concordant Recommendation: Follow up mammogram with magnification views in 6 months. Results discussed with Ms. Sandoval on 11/09/12. I performed the procedure without a resident. Home phone: [phone] Work phone: [phone] Usman Payne MD IMG MAMMO ORDERABLES documented in this encounter Visit Diagnoses Diagnosis Abnormal findings on diagnostic imaging of breast- Primary Other (abnormal) findings on radiological examination of breast Abnormal findings on diagnostic imaging of breast Other (abnormal) findings on radiological examination of breast Breast calcifications Other (abnormal) findings on radiological examination of breast Abnormal findings on diagnostic imaging of breast Other (abnormal) findings on radiological examination of breast Abnormal findings on diagnostic imaging of breast Other (abnormal) findings on radiological examination of breast documented in this encounter Care Teams Lithographer Helper Relationship Specialty Start Date End Date Trinh Coates MD [facility] [address] [place] [address] PCP - General 01/11/10 documented as of this encounter
--- OUTSIDE RECORDS SUMMARY | 2023-09-07 11:36 | XMS_ITS | Encounter Summary ---
Author Organization [facility] Address [facility] [place] [address] Care Team Providers Care Art Therapist Name Role Phone Trinh Coates MD Primary Care Provider [phone] Reason for Visit * Reason Onset Date Comments Medication Refill 03/30/2014 Encounter Details Date Type Department Care Team (Late st Contact Info) Description 03/30/2014 Refill Dermatology at [facility] [address] [place] [phone] Ernestine Gaines MD [facility] [address] [address] Psoriasis Social History Tobacco Use Types Packs/Day Years Used Date Smoking Tobacco: Former Sex and Gender Information Value Date Recorded Sex Assigned at Not on file Gender Identity Not on file Sexual Orientation Not on file documented as of this encounter Plan of Treatment Upcoming Encounters Date Type Department Care Team (Late st Contact Info) Description 01/22/2024 10:30 AM EST Appointment Mammography/[place] [phone] Ladi Mendosa MD [facility] [place]ATOLOG[place] [address] 01/30/2024 11:30 AM EST Office Visit Dermatology at [facility] [address] [place] [address] Nilda Luis MD [facility] [address] [address] 02/15/2024 9:30 AM EST [place] [phone] [place] [address] documented as of this encounter Visit Diagnoses Diagnosis Psoriasis Other psoriasis documented in this encounter Care Teams Art Therapist Relationship Specialty Start Date End Date Trinh Coates MD [facility] [address] [facility] [address] [place] [address] PCP - General 01/11/10 documented as of this encounter
--- OUTSIDE RECORDS SUMMARY | 2023-09-07 11:36 | XMS_ITS | Encounter Summary ---
Author Organization [facility] Address [facility] [place] [address] Care Team Providers Care Machine Inker Name Role Phone Trinh Coates MD Primary Care Provider [phone] Reason for Visit * Reason Onset Date Comments Medication Refill 04/16/2014 Encounter Details Date Type Department Care Team (Late st Contact Info) Description 04/16/2014 Refill Dermatology at [facility] [address] [place] [phone] Ernestine Gaines MD [facility] [address] [place] [address] Psoriasis Social History Tobacco Use Types Packs/Day [...] AM EST Appointment Mammography/[place] [address] Ladi Mendosa MD [facility] HEMATOLOGY/[place] [address] 01/30/2024 11:30 AM EST Office Visit Dermatology at [facility] [address] [place] [address] Nilda Luis MD [facility] [address] [place] [address] 02/15/2024 9:30 AM EST [place] [phone] [place] [address] documented as of this encounter Visit Diagnoses Diagnosis Psoriasis Other psoriasis documented in this encounter Care Teams Machine Inker Relationship Specialty Start Date End Date Trinh Coates MD [facility] [facility] [address] [place] [address] PCP - General 01/11/10 documented as of this encounter
--- OUTSIDE RECORDS SUMMARY | 2023-09-07 11:36 | XMS_ITS | Encounter Summary ---
Author Organization [facility] [place] [address] Care Team Providers Care Melter Operator Name Role Phone Trinh Coates MD Primary Care Provider [phone] Reason for Referral * Diagnostic Test (Routine) - Closed Specialty Diagnoses / Procedures Referred By Diamante marin Referred To Contact Radiology Diagnoses Hyperparathyroidism, primary Procedures NM Parathyroid w/Spect & Thyroid Imaging Valentina Lucas MD [facility] [place] [address] [place] [address] Referral ID Status Reason Start Date Expiration Date V isits Requested Visits Authorized [id number] Closed Specialty Service Requested 09/25/2015 09/24/2016 3 3 Encounter Details Date Type Department Care Team (Late st Contact Info) Description 09/25/2015 Orders [place] [address] Valentina Lucas MD [facility] [place] [address] Hyperparathyroidism, primary Social History Tobacco Use Types Packs/Day Years Used Date Smoking Tobacco: Former Sex and Gender Information Value Date Recorded Sex Assigned at Not on file Gender Identity Not on file Sexual Orientation Not on file documented as of this encounter Plan of Treatment Upcoming Encounters Date Type Department Care Team (Late st Contact Info) Description 01/22/2024 10:30 AM EST Appointment Mammography/[place] [address] Ladi Mendosa MD [facility] HEMATOLOGY/[place] [address] 01/30/2024 11:30 AM EST Office Visit Dermatology at [place] [address] [place] [address] Nilda Luis MD [facility] [address] [place] [address] 02/15/2024 9:30 AM [place] [address] [place] [address] documented as of this encounter Results * NM Parathyroid w/Spect & Thyroid Imaging (10/15/2015 2:16 PM EDT) Anatomical Region Laterality Modality Nuclear Medicine Impressions 10/15/2015 2:39 PM EDT Right lower pole parathyroid adenoma. Narrative 10/15/2015 2:39 PM EDT EXAMINATION: NM PARATHYROID W/SPECT AND THYROID IMAGING CLINICAL HISTORY: Hyperparathyroidism TECHNIQUE: Technetium-99m sestamibi was administered intravenously at a dose of 19.2 mCi. 15 minutes later, anterior image of the neck and chest was obtained. Two hours later, the anterior image of the neck and chest was repeated. Tomographic imaging of the neck and chest was then performed with the images reconstruction in the axial, coronal and sagittal planes. A low dose CT scan was acquired for attenuation correction and anatomic localization. Technetium-99m pertechnetate was then administered intravenously at a dose of 18.4 mCi. 20 minutes later, the anterior image of the neck and chest was repeated. COMPARISON: None FINDINGS: There is a focus of increased tracer activity that is retained in the delayed image corresponding to a nodule located inferior and posterior to the right lobe of the thyroid gland. This nodule is not visualized in the thyroid scan. Procedure Note Bruno Gray MD - 10/15/2015 EXAMINATION: NM PARATHYROID W/SPECT AND THYROID IMAGING CLINICAL HISTORY: Hyperparathyroidism TECHNIQUE: Technetium-99m sestamibi was administered intravenously at a dose of 19.2mCi. 15 minutes later, anterior image of the neck and chest was obtained. Two hours later, the anterior image of the neck and chest was repeated. Tomographic imaging of the neck and chest was then performed with theimages reconstruction in the axial, coronal and sagittal planes. A low dose CTscan was acquired for attenuation correction and anatomic localization. Technetium-99m pertechnetate was then administered intravenously at a doseof 18.4 mCi. 20 minutes later, the anterior image of the neck and chest was repeated. COMPARISON: None FINDINGS: There is a focus of increased tracer activity that is retained in thedelayed image corresponding to a nodule located inferior and posterior to theright lobe of the thyroid gland. This nodule is not visualized in the thyroid scan. IMPRESSION Right lower pole parathyroid adenoma. Valentina Lucas MD [facility] [place] ORDERABLES * VIT D Total Evaluation (10/15/2015 10:41 AM EDT) 25-OH Vit D Total 52 30 - 100 ng/mL [facility] Comment: Deficient <10 ng/mL Insufficient 10 to 29 ng/mL Sufficient 30 to 100 ng/mL Potential Intoxication >100 ng/mL According to the [place] National Osteoporosis Foundation, Vitamin D concentrations >30 ng/mL are sufficient to protect bone health. ??The National Kidney Foundation has similarly stated that patients with Vitamin D concentrations <30ng/mL should be considered to be insufficient or deficient. http://Where Was it Filmed/DHnatlkidneyfoundation http://Where Was it Filmed/DHVitD The [employer] iSYS Vitamin D Immunoassay detects both 25-OH Vitamin D2 and 25-OH Vitamin D3, but only a total Vitamin D concentration is reported. Blood specimen (specimen) 10/15/2015 10:41 AM EDT 10/15/2015 10:51 AM EDT Narrative Resulting Agency Comment Spec In Lab Valentina Lucas MD CHEMISTRY ORDERAB LES Performing Organization Address [facility] Co de Phone Number [facility] [place] [address] * (ABNORMAL) PTH (10/15/2015 10:41 AM EDT) PTH 77(H) 15 - 65 pg/mL [facility] Blood specimen (specimen) 10/15/2015 10:41 AM EDT 10/15/2015 10:51 AM EDT Narrative Resulting Agency Comment Spec In Lab Valentina Lucas MD CHEMISTRY ORDERAB LES Performing Organization Address [facility] Co de Phone Number [facility] [place] [address] * (ABNORMAL) Calcium (10/15/2015 10:41 AM EDT) Calcium 11.3(H) 8.5 - 10.5 mg/dL [facility] Blood specimen (specimen) 10/15/2015 10:41 AM EDT 10/15/2015 10:51 AM EDT Narrative Resulting Agency Comment Spec In Lab Valentina Lucas MD CHEMISTRY ORDERAB LES Performing Organization Address [facility] Co de Phone Number [facility] [place] [address] documented in this encounter Visit Diagnoses Diagnosis Hyperparathyroidism, primary Primary hyperparathyroidism Hyperparathyroidism, primary Primary hyperparathyroidism documented in this encounter Care Teams Melter Operator Relationship Specialty Start Date End Date Trinh Coates MD [address] [place] [address] PCP - General 01/11/10 documented as of this encounter
--- OUTSIDE RECORDS SUMMARY | 2023-09-07 11:36 | XMS_ITS | Encounter Summary ---
Author Organization Replaced By [facility] Address [facility] [place] [address] Care Team Providers Care Industrial Gas Fitter Name Role Phone Trinh Coates MD Primary Care Provider [phone] Reason for Visit * Auth/Cert Specialty Diagnoses / Procedures Referred By Diamante marin Referred To Contact Diagnoses Hyperparathyroidism HYPERPARATHYROIDISM Procedures PRO EXPLORE PARATHYROID GLANDS PRG EMG, LARYNX PARATHYROIDECTOMY OR EXPLORATION OF PARATHYROID(S) FACIAL NERVE MONITORING, SETUP LARYNGEAL Referral ID Status Reason Start Date Expiration Date Visits Re quested Visits Authorized [id number] 1 1 Encounter Details Date Type Department Care Team (Late st Contact Info) Description 11/02/2015 7:30 AM EDT - 11/02/2015 10:57 AM EDT Surgery [place] [address] Sherine Fontana MD [facility] [place] [address] PARATHYROIDECTOMY OR EXPLORATION OF PARATHYROID(S) (WRVU 15.6) Social History Tobacco Use Types Packs/Day Years [...] Sign Reading Time Taken Comments Blood Pressure 157/91 11/02/2015 6:50 AM EDT Pulse 63 11/02/2015 6:50 AM EDT Temperature 37.2 ??C (99 ??F) 11/02/2015 6:50 AM EDT Respiratory Rate 16 11/02/2015 6:50 AM EDT Oxygen Saturation 98% 11/02/2015 6:50 AM EDT Inhaled Oxygen Concentration - - Weight 77.1 kg (170 lb) 11/02/2015 6:50 AM EDT Height 152.4 cm (5') 11/02/2015 6:50 AM EDT Body Mass Index 33.2 11/02/2015 5:19 PM EDT documented in this encounter Discharge Summaries * Nathaly Saenz, CORPORATION OFFICER - 11/03/2015 10:00 AM EDT General Surgery Inpatient - Discharge Summary Patient Name: Wedny Sandoval Patient Age: 50 y.o. Birthdate: 1965 Admit date: 11/02/2015 Discharge date: 11/03/15 Admitting Physician: Sherine Fontana MD Primary Diagnosis: Hyperparathyroidism Secondary Diagnosis: Active Hospital Problems Diagnosis ??? Hyperparathyroidism Resolved Hospital Problems Diagnosis Date Resolved No resolved problems to display. Active Non-Hospital Problems Diagnosis ??? Obstructive sleep apnea (adult) (pediatric) ??? OA (osteoarthritis) ??? Overweight(278.02) ??? Hypertension ??? Depression HPI: Obtained from Dr. Sherine Fontana's Office Visit noted dated 10/15/15. Ms. Wendy Sandoval is a very pleasant 50 y.o. year old female who presents for evaluation of primary hyperparathyroidism as a referral from Dr. Coates. Hypercalcemia was first noted on routine bloodwork in 2013, with levels in the high 10s (10.7-10.9) over the past 2 years. There is a remote history of nephrolithiasis, with a clinically significant episode in 1988 or . She has never had another episode to her knowledge. She has never had a DEXA scan. Apparently, when she was 16, she had an ankle fracture without an inciting trauma, but there have been no fractures since. She does complain of many symptoms of hyperparathyroidism including mood depression, nocturia x 2-3, bone pain (mainly in the thighs and shins), abdominal cramps/constipation, fatigue and malaise. There is no history of previous parathyroid exploration or thyroid surgery. Her father had a parathyroidectomy for hypercalcemia, but she does not know any details and he is now . No other family history of endo crinopathies or endocrine malignancies. She presents today for consideration of surgical managementof her hyperparathyroidism. Operations/Major Procedures: Operations: 11/02/2015 Surgeon(s) and Role: * Sherine Fontana MD - Primary * Cayden Palacio MD: Procedure(s): PARATHYROIDECTOMY OR EXPLORATION OF PARATHYROID(S) FACIAL NERVE MONITORING, SETUP LARYNGEAL THYMECTOMY, TRANSCERVICAL APPROACH Operative Findings: The muscles were somewhat adherent to the thyroid surface. We identified a significantly enlarged right upper parathyroid gland in the tracheoesophageal groove which we were able to remove. Because our intraoperative parathyroid hormone levels did not decrease appropriately, we e lected to explore the other three parathyroid glands intraoperatively. IOPTH findings: Baseline:?? 284?? pg/mL?? Preexcision?? 255?? pg/mL?? 10-min post-excision?? 79?? pg/mL?? 15-min post-excision?? 66?? pg/mL?? 11:44 am PTH level?? 14?? pg/mL?? Hospital Course: Wendy Sandoval was taken to the operating room where the above procedures were performed. She tolerated the operation well and without complication. She was admitted post-operatively for clinical monitoring and further management. The patient's hospital course was uncomplicated and she was deemed stable for discharge on post-operative day. Important Studies and Lab Data: See below. Pathology: Final Surgical Pathology pending. Microbiology: None. Labs: Lab Results Component Value Date PTH 7 (L) 11/03/2015 CALCIUM 9.4 11/03/2015 PHOS 3.2 11/12/2014 No results found for: NA, K, CL, CO2, BUN, CREATININE, GLUCOSE CBC No results found for: WBC, HGB, HCT, PLATELET Pending Lab Data at Discharge: Final Surgical Pathology pending. Studies: None. Discharge Exam: Last value Range last 12 hrs Temperature Temp: 37.2 ??C (99 ??F) (recheck on vitals do to patient feeling weak, and faitgue ) Temp: [36.9 ??C (98.4 ??F)-37.2 ??C (99 ??F)] Heart Rate Heart Rate: 79 Heart Rate: [79-80] Blood Pressure BP: (!) 151/98 BP: (132-155)/(87-98) Respiratory Rate Resp: 18 Resp: [16-18] SpO2 SpO2: 97 % SpO2: [95 %-98 %] I/Os: I/O last 3 completed shifts: In: 1920 [P.O.:320; I.V.:1600] Out: 892 [Urine:875; Blood:17] Gen: NAD, alert & oriented x3, pain well controlled per patient with PRN Tylenol Neuro: Denies any perioral or peripheral extremity numbness/tingling. Pulm: Slightly diminished in the bases bilaterally; IS encouraged - pt reaching 750 on IS. Denies SOB. Card: RRR, no CP. Abd: Non-distended, soft, non-tender. + belching, - flatus, hypoactive bowel sounds, LBM 9/ priorto surgery. Wound: anterior transverse neck incision SIDE DOOR MAN with dermabond; no swelling, erythema, or drainage. Ext: no edema, 2+ peripheral pulses Discharge Plans: Discharge to: Home VNA: No Discharge Conditions/Prognosis: Stable Discharge Medications: The following medications have been prescribed for you. If you notice any adverse reactions to your medications, please contact your primary care physician immediately or go tothe nearest Emergency Department. Your Medications New Medications Dose Details acetaminophen 325 mg Tab Commonly known as: TYLENOL Take 2 tablets by mouth every 4 hours as needed for Pain. 650 mg Refills: 0 calciTRIol 0.25 mcg Cap Commonly known as: ROCALTROL Take 1 capsule by mouth daily. 0.25 mcg Quantity: 30 tablet Refills: 3 ibuprofen 400 mg Tab Commonly known as: ADVIL;MOTRIN Take 1 tablet by mouth every 6 hours as needed for Pain. 400 mg Refills: 0 Continued medications, unchanged Dose Details b complex vitamins Cap Take 1 capsule by mouth daily. 1 capsule Refills: 0 clobetasol 0.05 % Crea Commonly [...] by mouth daily. 324 mg Refills: 0 fish oil-omega-3 fatty acids 1,000 mg Cap Take 1 g by mouth every other day. 1 g Refills: 0 FLUoxetine 40 mg Cap Commonly known as: PROzac daily. Refills: 0 furosemide 20 mg Tab Commonly known as: LASIX Take 1 tablet by mouth daily as needed. 1 tablet Refills: 0 KLOR-CON M20 20 mEq Tbtq 2 times daily. Generic drug: potassium chloride Refills: 0 norethindrone 5 mg Tab Commonly known as: AYGESTIN Take 1 tablet by mouth daily. 1 tablet Refills: 0 simvastatin 10 mg Tab Commonly known as: ZOCOR nightly. Refills: 0 terbinafine 250 mg Tab Commonly known as: LamISIL Take 250 mg by mouth daily. 250 mg Refills: 0 triamcinolone 0.5 % Crea Commonly known as: ARISTOCORT Refills: 0 valsartan 160 mg Tab Commonly known as: DIOVAN Take 1 tablet by mouth daily. 1 tablet Refills: 0 STOPPED Medications cholecalciferol (Vitamin D3) 2,000 unit Cap Updated Allergies/ADRs: Allergies Allergen Reactions ??? Pcn [Penicillins] ??? Zoloft [Sertraline] PSORIASIS FLARE Scheduled Appointments: Future Appointments Date Time Provider Department Center 12/09/2015 10:00 AM LAB, [facility] L [facility] 12/09/2015 11:00 AM [facility] Font[facility] Outpatient Services/Studies: Calcium Standing Status: Future Standing Exp. Date: 11/02/16 Instructions Given to Patient at Discharge:. An After Visit Summary was printed and given to the patient. Patient Instructions PARATHYROIDECTOMY PATIENT DISCHARGE INSTRUCTIONS What to Expect Following Surgery: Swelling and/or bruising under and around the incision is normal. It is usually greatest on the second or third day following surgery. You may also feel the sensation of swelling or firmness that canlast for a month or more Your scar will be most visible for 1-2 months following your operation and will gradually fade overthe next 6-8 months. As it heals, a scar often looks more pink or red than the skin around it. You may feel a ???healing ridge?? directly under the incision. This is completely normal and is the result of swelling, healing, and scar formation. Usually, this will go away when healing is complete in 3-6 months. The skin just above and below your incision will feel numb. This will improve over several months but some patients may have long-term decrease in sensation over these areas. You may notice minor difficulty in swallowing which will improve over time. Your voice may be hoarse or weak at first--this is normal and does not mean there was damage done to the nerves that make the vocal cords move. Your voice will usually go back to normal after severaldays to a few weeks. Incision Care: Neck incisions heal rapidly--usually within a week or two. The incision can get wet in the shower 24 hours after surgery. However, do not submerge the incision underwater (i.e. bath tub, swimming pool, hot tub, etc.) for at least 2 weeks after your operation. Pat the incision dry immediately following your shower. Do not scrub the area vigorously for the next 2 weeks. You have a skin glue closure, and you may notice tiny pieces of yellow/white material on your washcloth or there may be a thin clear or whitish crust around the edges of the incision. This is normal.The glue will start to come off about a week after surgery. Do not pull off the skin glue in order to allow time for the incision to heal completely. Do not use any ointments/salves/Vitamin E on the incision until after your first follow-up appointment as these may impair early wound healing. Incisions are sensitive to sunlight. For at least 1 year after surgery you should use sunscreen when outdoors for long periods of time to prevent permanent darkening of the scar. This includes tanning booths. Pain Management: You may apply ice or cold packs to the incision for 15-20 minutes several times a day for the first2-3 days following surgery to help with discomfort. You may feel some stiffness/soreness in your shoulders, back, and neck. This may take a few days orweeks to go away completely. You may use moist warm heat, a heating pad, or massage to these areas for 15-20 minutes several times a day. Do not be afraid to move your neck - gently flexing and stretching your neck muscles and light massage will help prevent stiffness NSAIDs (non-steroidal anti-inflammatory drugs) such as ibuprofen (Motrin, Advil) and naproxen (Naprosyn, Aleve) or acetaminophen (Tylenol) are most helpful for the pain experienced after surgery. Generally, these are even more effective than the stronger pain medications (narcotics or opioids) after thyroid surgery. Take NSAIDS or Tylenol every 6 hours [id number] for the first 3-5 days following surgery to help minimize pain. Use opioid (oxycodone) pain medications for severe pain, and never take with alcohol. Per our discussion, no opioid pain medication was prescribed as you would prefer to manage your pain with Tylenoland Ibuprofen at home (since the Oxycodone made you feel lightheaded and you didn't want to try a smaller dose or try Dilaudid). Opioid medications typically cause constipation, so we suggest using a stool softener in addition (metamucil, colace...etc.). Diet & Activity: No restrictions in your diet are necessary. Activity as tolerated by your comfort level. You may return to work as soon as you would like. However, if your job requires heavy lifting or strenuous physical activity, your surgeon may ask you to wait to return to work until after your two-week post-operative appointment. NO DRIVING for at least 8 hours following any dose of an opioid pain medication if one was prescribed for you. Calcium Supplementation: Your body???s calcium levels may temporarily fall following a parathyroid operation. Therefore, allpatients should take calcium supplementation after surgery. We recommend that you purchase your calcium supplement from a pharmacy or grocery store, as it is available [id number] and does not require a prescription. The cost is approximately $10-$15 per bottle. The calcium supplement we recommend is Citrical Maxium (calcium citrate 630mg with 500IU Vitamin D3). You need to take 2 tabs (to equal a dose of 1260mg calcium and 1000 IU of Vitamin D3) three times daily unless instructed differently by your surgeon. If you notice a tingling sensation in your hands, feet, around your mouth, or develop muscle spasms, please call the General Surgery nurse at [phone], since this may mean that you need more calcium. Pathology Report: All specimens removed at surgery are analyzed by a pathologist. This report usually takes approximately 4 business days to be ready. Dr. Fontana will call you with this report as soon as it is available. Follow-up Appointment: Will be scheduled with Dr. Fontana in 6 weeks with a lab appointment to check your calcium Date and time will be mailed to you Please call [phone] to confirm the date and time of your appointment if you do not hear from us in the next 2 weeks Call Doctor for: Call if you have trouble talking or breathing (call [phone] if this is severe) Call if you develop numbness or tingling around your mouth/lips or on the tips of your fingers or your hands, as this may mean your calcium is low. This may also be related to pain medication, where the breathing tube was positioned against your lips, the positioning of your arms and hands in the operating room, or how you were positioned when sleeping. If the sensation does not go away within a half hour, or if it worsens prior to that, call us immediately so we can discuss increasing your calcium if we think you need it. Call if your incision becomes red or begins to drain fluid. Call if you have fevers greater than 101 degrees F Call if you have persistent nausea or vomiting (this may be related to opioid pain medications). Call if you begin feeling worse, rather than better, several days after surgery. Who to call? If you have concerns or questions: - During the day, it is best to call the [facility] to speak with the Surgery nurses. The number is [phone]. - During the night or weekends call the [facility] foil operator at [phone] and ask to speak to the surgery resident business continuity strategy director for general surgery. Please note: Your surgeon may not be Data Acquisition Technician, especially during the night or on weekends, so be ready to describe yourself and your surgery when you call. Follow up appointments: Future Appointments Date Time Provider Department Center 12/09/2015 10:00 AM LAB, THREE L Lab 3L [facility] 12/09/2015 11:00 AM Sherine Fontana MD [facility] [x] Follow-up appointment with General Surgery has already been scheduled [] A request for a follow-up appointment has been made and you should receive information via phone/mail in the next week. If you do not hear anything, please call the clinic at [phone] to confirm or reschedule. If you need a prior authorization, please call the General Surgery Clinic nurses [phone] for prior authorizations assistance General Instructions None Follow-up Recommendations for Providers: Routine post-operative care. Per our discussion, no opioid pain medication was prescribed as patient would prefer to manage her pain with Tylenol and Ibuprofen at home (since the Oxycodone made her feel lightheaded and she didn't want to try a smaller dose or try Dilaudid). CC: TRINH COATES MD Signed: Nathaly Saenz APRN Surgical Oncology Service Team Pager #[phone] 11/03/2015 2:46 PM documented in this encounter Discharge Instructions * Patient Instructions* Nathaly Saenz APRN - 11/03/2015 10:01 AM EDT PARATHYROIDECTOMY PATIENT DISCHARGE INSTRUCTIONS What to Expect Following Surgery: Swelling and/or bruising under and around the incision is normal. It is usually greatest on the second or third day following surgery. You may also feel the sensation of swelling or firmness that canlast for a month or more Your scar will be most visible for 1-2 months following your operation and will gradually fade overthe next 6-8 months. As it heals, a scar often looks more pink or red than the skin around it. You may feel a ???healing ridge?? directly under the incision. This is completely normal and is the result of swelling, healing, and scar formation. Usually, this will go away when healing is complete in 3-6 months. The skin just above and below your incision will feel numb. This will improve over several months but some patients may have long-term decrease in sensation over these areas. You may notice minor difficulty in swallowing which will improve over time. Your voice may be hoarse or weak at first--this is normal and does not mean there was damage done to the nerves that make the vocal cords move. Your voice will usually go back to normal after severaldays to a few weeks. Incision Care: Neck incisions heal rapidly--usually within a week or two. The incision can get wet in the shower 24 hours after surgery. However, do not submerge the incision underwater (i.e. bath tub, swimming pool, hot tub, etc.) for at least 2 weeks after your operation. Pat the incision dry immediately following your shower. Do not scrub the area vigorously for the next 2 weeks. You have a skin glue closure, and you may notice tiny pieces of yellow/white material on your washcloth or there may be a thin clear or whitish crust around the edges of the incision. This is normal.The glue will start to come off about a week after surgery. Do not pull off the skin glue in order to allow time for the incision to heal completely. Do not use any ointments/salves/Vitamin E on the incision until after your first follow-up appointment as these may impair early wound healing. Incisions are sensitive to sunlight. For at least 1 year after surgery you should use sunscreen when outdoors for long periods of time to prevent permanent darkening of the scar. This includes tanning booths. Pain Management: You may apply ice or cold packs to the incision for 15-20 minutes several times a day for the first2-3 days following surgery to help with discomfort. You may feel some stiffness/soreness in your shoulders, back, and neck. This may take a few days orweeks to go away completely. You may use moist warm heat, a heating pad, or massage to these areas for 15-20 minutes several times a day. Do not be afraid to move your neck - gently flexing and stretching your neck muscles and light massage will help prevent stiffness NSAIDs (non-steroidal anti-inflammatory drugs) such as ibuprofen (Motrin, Advil) and naproxen (Naprosyn, Aleve) or acetaminophen (Tylenol) are most helpful for the pain experienced after surgery. Generally, these are even more effective than the stronger pain medications (narcotics or opioids) after thyroid surgery. Take NSAIDS or Tylenol every 6 hours odsxrl-cgh-syoxq for the first 3-5 days following surgery to help minimize pain. Use opioid (oxycodone) pain medications for severe pain, and never take with alcohol. Per our discussion, no opioid pain medication was prescribed as you would prefer to manage your pain with Tylenoland Ibuprofen at home (since the Oxycodone made you feel lightheaded and you didn't want to try a smaller dose or try Dilaudid). Opioid medications typically cause constipation, so we suggest using a stool softener in addition (metamucil, colace...etc.). Diet & Activity: No restrictions in your diet are necessary. Activity as tolerated by your comfort level. You may return to work as soon as you would like. However, if your job requires heavy lifting or strenuous physical activity, your surgeon may ask you to wait to return to work until after your two-week post-operative appointment. NO DRIVING for at least 8 hours following any dose of an opioid pain medication if one was prescribed for you. Calcium Supplementation: Your body???s calcium levels may temporarily fall following a parathyroid operation. Therefore, allpatients should take calcium supplementation after surgery. We recommend that you purchase your calcium supplement from a pharmacy or grocery store, as it is available ejot-rvz-cbnkpir and does not require a prescription. The cost is approximately $10-$15 per bottle. The calcium supplement we recommend is Citrical Maxium (calcium citrate 630mg with 500IU Vitamin D3). You need to take 2 tabs (to equal a dose of 1260mg calcium and 1000 IU of Vitamin D3) three times daily unless instructed differently by your surgeon. If you notice a tingling sensation in your hands, feet, around your mouth, or develop muscle spasms, please call the General Surgery nurse at [phone], since this may mean that you need more calcium. Pathology Report: All specimens removed at surgery are analyzed by a pathologist. This report usually takes approximately 4 business days to be ready. Dr. Fontana will call you with this report as soon as it is available. Follow-up Appointment: Will be scheduled with Dr. Fontana in 6 weeks with a lab appointment to check your calcium Date and time will be mailed to you Please call [phone] to confirm the date and time of your appointment if you do not hear from us in the next 2 weeks Call Doctor for: Call if you have trouble talking or breathing (call 911 if this is severe) Call if you develop numbness or tingling around your mouth/lips or on the tips of your fingers or your hands, as this may mean your calcium is low. This may also be related to pain medication, where the breathing tube was positioned against your lips, the positioning of your arms and hands in the operating room, or how you were positioned when sleeping. If the sensation does not go away within a half hour, or if it worsens prior to that, call us immediately so we can discuss increasing your calcium if we think you need it. Call if your incision becomes red or begins to drain fluid. Call if you have fevers greater than 101 degrees F Call if you have persistent nausea or vomiting (this may be related to opioid pain medications). Call if you begin feeling worse, rather than better, several days after surgery. Who to call? If you have concerns or questions: - During the day, it is best to call the [facility] to speak with the Surgery nurses. The number is [phone]. - During the night or weekends call the [facility] foil operator at [phone] and ask to speak to the surgery resident business continuity strategy director for general surgery. Please note: Your surgeon may not be Data Acquisition Technician, especially during the night or on weekends, so be ready to describe yourself and your surgery when you call. Follow up appointments: Future Appointments Date Time Provider Department Center 12/09/2015 10:00 AM LAB, THREE L Lab 3L [facility] 12/09/2015 11:00 AM Sherine Fontana MD [facility] [x] Follow-up appointment with General Surgery has already been scheduled [] A request for a follow-up appointment has been made and you should receive information via phone/mail in the next week. If you do not hear anything, please call the clinic at [phone] to confirm or reschedule. If you need a prior authorization, please call the [facility] nurses [phone] for prior authorizations assistance documented in this encounter Medications at Time of Discharge Medication Sig Dispensed Refills Start Date End Date ferrous gluconate 324 mg (37.5 mg iron) TabletIndications:Prote inuria,Essential hypertension,Hypercalce osmin Take 324 mg by mouth daily. fluoxetine (PROZAC) 40 mg capsule Take 40 mg by mouth daily. 10/31/2012 DILTiazem (CARDIZEM CD) 240 mg Capsule, Sust. [...] tablet 1 CAP daily 03/27/2014 024 acetaminophen (TYLENOL) 325 mg Tablet Take 2 [...] Take 1 capsule by mouth daily. 03/29/2017 terbinafine (LAMISIL) 250 mg tablet Take 250 mg by mouth daily. 12/09/2015 KLOR-CON M20 20 mEq extended release tablet 2 times daily. 10/31/2012 simvastatin (ZOCOR) 10 mg tablet nightly. 10/31/2012 03/29/2017 triamcinolone (ARISTOCORT) 0.5 % cream 10/24/2012 03/29/2017 documented as of this encounter Progress Notes * Lakeisha Peñaloza RN - 11/03/2015 4:24 PM EDT Wendy Sandoval discharged to Home by private car with Family member. All belongings sent with patient. STACY removed, incision healing well, no significant drainage, no dehiscence, no significant erythema, skin free from pressure ulcers. Discharge instructions, medications, and follow-up appointments reviewed, education provided on wound care, paper prescriptions given to patient, all questions answered. Patient instructed to call with concerns. * Miriam Randall RN - 11/03/2015 11:03 AM EDT Office of Care Management Initial Assessment MIRIAM RANDALL RN reviewed record and discussed patient with Care Team. Source of Information: Chart review, communication with primary team and patient interview Introduced self/reviewed role; services accepted. Reason for Hospitalization: POD#1 parathryoidectomy Past Medical History Diagnosis Date ??? Fibrocystic breast determined by biopsy ??? Hyperlipidemia ??? Hypertension ??? Impaired fasting glucose ??? Obstructive sleep apnea on CPAP ??? Proteinuria Hospitalizations Within the Past 30 Days: none Anticipated Length Of Stay (If known): Current Decision-Making Capacity: yes Advance Care Planning: Does not have-education provided and did not want to complete at this time, but in agreement to accepting [place] advanced planning booklet and reviewing at home. 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 limitations Home Environment: Two level home with bedroom on second floor-no concerns about managing on discharge Social & Family Supports/Community Resources: - able to assist if needed. Has 2 children who are away at school. Behavioral Health History: n/a Substance Use/Abuse: denies recreational drug or marijuanna use; rare alcohol intake; does not smoke Other Pertinent/Service Specific Information: n/a Health/Prescription Coverage: Primary Insurance: MVP Secondary Insurance: none Prescription Coverage: MVP Preferred Pharmacy: [facility] Other: Also uses [facility], but prefers [facility] for any new scripts related to this discharge Primary Care Provider: TRINH COATES MD [phone] Patient/Caregiver Goals of Treatment: Home without services when medically ready Potential Needs for Transition of Care: Rehab/SNF: not indicated Home Health: not indicated DME: none Dialysis: none Community Resources: n/a Transportation: Other: n/a Anticipated Barriers to Discharge/Special Considerations: none Plan: Home without services when medically ready. A member of the Care Management team will continue to monitor progress, follow for continuity of care and assist with transition of care planning. MIRIAM RANDALL RN Pager: covering for pager [phone] * Tawana Arrieta, RN - 11/02/2015 4:19 PM EDT Wendy Sandoval arrived to 511B @ 1600 from [facility] Day. She is on 3 Liter O2 NC, in NAD. Oriented to room, call [place] within reach, educated on importance of using prior to getting OOB, AVSS, no wound, incision healing well, no significant drainage, no dehiscence, no significant erythema, belongingsupdated in eDH, bed locked in low position, purposeful hourly rounding, bed/chair alarm on, room near nurses station. Phillip with patient. * Lio Le RN - 11/02/2015 12:45 PM EDT Pt arrives in [facility]. EKG denotes significany St depression in leads V and 2. DR Scooby Vieira at bedside and aware. No 12 lead EKG ordered at this time. Pt denies Chest pain, SOB or any other discomfort. Dr vieira to reassess Ekg in a few minutes 1300: Dr Alberto at bedside assessing Pt. EkG continues to denote St Depression Pt continues to deny Chest pain. Dr Palacio notified an Troponin levels ordered 1340: 12 lead ekg done 1410: Dr jean at bedside Hr 110-128. Labetolol 10mg iv ordered. 12 Lead ekg results reviwed byDr alberto. Troponin sent to lab 1530: Dr Clarke at bedside EKG denotes NSR. VS stable Ok for pt to go to floor documented in this encounter H&P Notes * Sherine Fontana MD - 11/02/2015 6:58 AM EDT Patient Name: Wendy Sandoval Patient Age: 50 y.o. Birthdate: 1965 Admit date: 11/02/2015 Attending Physician: Sherine Fontana MD Endocrine Surgery Pre-Operative H&P Wendy Sandoval is a 50 y.o. female with primary hyperparathyroidism. There have been no significant changes since my office note dated 10/14. PMH and PSH unchanged since office visit. Last value Range last 24 hrs Temperature Temp: 37.2 ??C (99 ??F) Temp: [37.2 ??C (99 ??F)] Heart Rate Heart Rate: 63 Heart Rate: [63] Blood Pressure BP: (!) 157/91 BP: (157)/(91) Respiratory Rate Resp: 16 Resp: [16] SpO2 SpO2: 98 % SpO2: [98 %] Art BP BP (Arterial Line): -- NAD RRR CTAB Pre-operative labs and imaging reviewed. A/P: 50 y.o. female with primary hyperparathyroidism. Plan is to proceed to the OR for parathyroidectomy (will target the right lower gland and do IOPTH monitoring, with conversion to 4-gland exploration as needed). documented in this encounter Miscellaneous Notes * Plan of Care - Becki Colon, JENNYFER - 11/03/2015 6:15 AM EDT Problem: General Plan of Care Goal: Plan of Care Review Outcome: Ongoing (Interventions Implemented as Appropriate) 11/03/15 0604 Coping/Psychosocial Response Interventions Plan of Care Reviewed with patient Plan of Care Review Plan of Care Outcome Status ongoing (interventions implemented as appropriate) Progress progress toward functional goals as expected OUTCOME EVALUATION NOTE: OUTCOME SUMMARY: Vital signs for past 24 H Temp: [36.4 ??C (97.5 ??F)-37.2 ??C (99 ??F)] Heart Rate: [76-108] Resp: [10-18] BP: (132-176)/(82-113) SpO2: [90 %-98 %] Heart Rate from SPO2: [78 bpm-108 bpm] A&O x4, strengths 5/5 for all, PERRL, VSS, Pain in anterior neck incision region. Pain was managed with PRN oxycodone and tylenol. Effective management attained at 10mg oxycodone with 650mg tylenol Q 4H. Ecchymosis present around surgical region. Incision is CDI with no drainage, swelling, or redness. paged to obtain a treat level for BP as BP was 168/106 at 2333 11/01 and increased to 176/113 at 0040 due to anxiety and stress. BP is to be treated for >160 systolic BP not controlled with home medications. Pt given 5mg meTOPROLOL IV with positive effects. 2100 Valsarten dose arrived by tube to unit at 2330 and was administered. PLAN MOVING FORWARD: Continue to monitor patient progress with treatment. Plan for discharge. Pain management. Calcium control with supplementation INDIVIDUALIZED FALL PREVENTION INTERVENTIONS : Pt at RISK OF FALLS. Patient-specific fall risk factors per assessment: [current deficits]: Pt mobility is very good. Risk factors include attached equipment monitoring device, and environment. Assistance [level of assistance required for transfers and ambulation]: SBA Supervision [direct monitoring required during toileting and ADLs]: Monitoring during toileting andADLs eyes on Surveillance [continuous indirect monitoring]: Bed locked in low position, call [place] within reach, Hourly rounding by RN/SLOPE RUNNER. Close to nurse's station. Bed alarm / Chair alarm. Patient-specific fall prevention interventions for sensory deficits provided, if applicable: [X] Yes CPG GOAL OUTCOME EVALUATION: Goal: Individualization and Mutuality Outcome: Ongoing (Interventions Implemented as Appropriate) 11/02/15 1800 Mutuality/Individual Preferences What anxieties, fears or concerns do you have about your health or care? none What questions do you have about your health or care? none What information would help us give you more personalized care? none Goal: Fall Prevention-Safe Patient Handling Outcome: Ongoing (Interventions Implemented as Appropriate) 11/02/15 1800 11/02/15202911/03/15603 Safety Interventions Safety Precautions/Fall Reduction -- bed alarm;fall reduction program maintained;lighting adjusted for task/safety;low bed;nonskid shoes/slippers when out of bed;room near unit station;supervised activity -- Musculoskeletal Interventions Activity/Level of Assistance -- with stand by assist -- Positioning HOB up 30 degrees -- -- Muscle Strengthening -- -- activity/mobility promoted;mobility in bed promoted;personal routines for BADL/IADL promoted;sitting on edge of bed encouraged;up in chair encouraged for meals and activities Self-Care Promotion -- -- assistance provided to decrease frustration;independence encouraged whileproviding assistance;personal routines for BADL/IADL promoted;personal/BADL objects within reach [place] Fall Risk History of Falling -- 0 -- Secondary Diagnosis -- 15 -- Ambulatory Aids -- 0 -- Intravenous Therapy/Heparin/Saline Lock -- 20 -- Gait/Transferring -- 0 -- Mental Status -- 0 -- Score -- 35 -- Activity and Safety Assistive Device -- None -- OTHER [place] Fall Risk -- Med -- Goal: Infection Control 11/02/15202911/03/15603 Safety Interventions Isolation Precautions -- standard precautions maintained Infection Prevention bronchial hygiene promoted;environmental surveillance;hydration promoted;nutrition promoted;promote handwashing;rest/sleep promoted -- Coping/Psychosocial Response Interventions Counseling -- calming techniques promoted;emotional support provided;reassurance provided;understanding of situation facilitated;verbalization of feelings encouraged Goal: Discharge Needs Assessment Outcome: Ongoing (Interventions Implemented as Appropriate) 11/02/15 1800 Living Environment Transportation Available car;family or friend will provide Problem: Skin Integrity Impairment, Risk/Actual (Adult, Obstetrics) Goal: Identify Signs and Symptoms and Related Risk Factors Signs and symptoms and related risk factors are identified upon initiation of Human Response Clinical Practice Guideline (CPG) Outcome: Ongoing (Interventions Implemented as Appropriate) 11/03/15603 Skin Integrity Impairment, Risk/Actual Personal Related Risk Factors (Skin Integrity Impairment, Risk/Actual) sleep deprivation;stress Physiological Related Risk Factors (Skin Integrity Impairment, Risk/Actual) scar tissue;skin turgoralteration Treatment Related Related Risk Factors (Skin Integrity Impairment, Risk/Actual) invasive catheters;medication;surgery Goal: Skin Integrity/Wound Healing Patient will demonstrate the desired outcomes. Outcome: Ongoing (Interventions Implemented as Appropriate) 11/03/15603 Skin Integrity Impairment, Risk/Actual (Adult, Obstetrics) Skin Integrity/Wound Healing making progress toward outcome Problem: Pain, Acute (Adult, Obstetrics) Goal: Identify Signs and Symptoms and Related Risk Factors Signs and symptoms and related risk factors are identified upon initiation of Human Response Clinical Practice Guideline (CPG) Outcome: Ongoing (Interventions Implemented as Appropriate) 11/03/15603 Pain, Acute Related Risk Factors (Acute Pain) anxiety;comorbidities;stress;surgery Signs and Symptoms (Acute Pain) alteration in muscle tone;facial mask of pain/grimace;verbalizationof pain descriptors Goal: Acceptable Pain Control/Comfort Level Patient will demonstrate the desired outcomes. Outcome: Ongoing (Interventions Implemented as Appropriate) 11/03/15603 Pain, Acute (Adult, Obstetrics) Acceptable Pain Control/Comfort Level making progress toward outcome Problem: Anxiety (Adult, Obstetrics) Goal: Identify Signs and Symptoms and Related Risk Factors Signs and symptoms and related risk factors are identified upon initiation of Human Response Clinical Practice Guideline (CPG) Outcome: Ongoing (Interventions Implemented as Appropriate) 11/03/15603 Anxiety Related Risk Factors (Anxiety) coping patterns, ineffective;knowledge deficit;loss of control;pain Signs and Symptoms (Anxiety) apprehension/being worried;muscle tension;nervousness/tension/restlessness;perceived dangers/fears;physical complaints/symptoms;sleep disturbance Goal: Reduction/Resolution Patient will demonstrate the desired outcomes. Outcome: Ongoing (Interventions Implemented as Appropriate) 11/03/15603 Anxiety (Adult, Obstetrics) Reduction/Resolution making progress toward outcome * Op Note - Sherine Fontana MD - 11/02/2015 12:19 PM EDT [facility] Operative Note Patient Name: Wendy Sandoval : [id number] MR#: [id number] Case Date: 11/02/2015 Surgeon: Surgeon(s) and Role: * Sherine Fontana MD - Primary * Cayden Palacio MD Preoperative diagnosis: HYPERPARATHYROIDISM Postoperative diagnosis: HYPERPARATHYROIDISM Procedure(s): PARATHYROIDECTOMY OR EXPLORATION OF PARATHYROID(S) FACIAL NERVE MONITORING, SETUP LARYNGEAL THYMECTOMY, TRANSCERVICAL APPROACH Anesthesia: General Estimated Blood Loss: 25cc Specimens removed during surgery: right lower parathyroid gland; cervical thymus (frozen section = parathyroid gland); ? right-sided parathyroid gland x 2 (frozens, both were fat); ? left upper parathyroid gland (confirmed); central neck contents; left carotid sheath mass Drains: Surgical Closure: Primary Closure - closure [...] details pertinent to this patient.) HPI/Surgical Indications: Ms. Wendy Sandoval is a very pleasant 50 y.o. year old female who presents for evaluation of primary hyperparathyroidism as a referral from Dr. Coates. Hypercalcemia was first noted on routine bloodwork in 2013, with levels in the high 10s (10.7-10.9) over the past 2 years. There is a remote history of nephrolithiasis, with a clinically significant episode in 1988 or . She has never had another episode to her knowledge. She has never had a DEXA scan. Apparently, when she was 16, she had an ankle fracture without an inciting trauma, but there have been no fractures since. She does complain of many symptoms of hyperparathyroidism including mood depression, nocturia x 2-3, bone pain (mainly in the thighs and shins), abdominal cramps/constipation, fatigue and malaise. There is no history of previous parathyroid exploration or thyroid surgery. Her father had a parathyroidectomy for hypercalcemia, but she does not know any details and he is now . No other family history of endocrinopathies or endocrine malignancies. She presents today for consideration of surgical management of her hyperparathyroidism. Recent labs: Serum calcium 11.3 mg/dL PTH 77 pg/mL Vitamin D 52 ng/mL Sestamibi scan and ultrasound were suggestive of a right lower parathyroid adenoma. Procedure Description: The patient was taken to the operating room and placed on the operating table in the supine position. Adequate general anesthesia was completed by anesthesiology with the [employer] recurrent laryngeal nerve monitoring system. A crease on the anterior neck was identified and marked, and this area was infiltrated with 10 cc 0.25% marcaine with epinephrine. She was then prepped and draped in the usual sterile fashion over the anterior neck. A timeout procedure was done, and all members of the OR team were in agreement. The procedure began by making a curvilinear incision along the lower anterior neck along the previously marked skin crease with a scalpel. Electrocautery was used to continue dissection through the subcutaneous tissue and through the platysma muscle. Subplatysmal flaps were created in cranial and caudal directions. The median raphe of the strap muscles was divided with electrocautery. We developed a plane between the right strap muscles down to the right internal jugular vein, and florentino a baseline PTH from the internal jugular vein. IOPTH levels are noted in the below. We then dissected the strap muscles off the thyroid lobe out to its lateral aspect. The muscles were somewhat adherent to the thyroid surface. The middle thyroidal veins were ligated. The central neck was full of tissue--fatand benign-appearing nodes. We identified a nodule in the central neck that was a slightly darker color than the surrounding adipose tissue, which appeared to be a somewhat small, intrathymic parathyroid gland. We dissected it free onto its vascular pedicle and sent it for frozen section, since it was somewhat smaller than we would have expected from the preoperative imaging. The frozen section returned fat and veins. In the meantime, because we knew that this nodule did not look like an enlarged parthyroid gland, we continued exploration. We dissected into the paratracheal and paraesophageal space and identified the recurrent laryngeal nerve as it ran into the tracheoesophageal groove and carefully preserved this. We identified a significantly enlarged right upper parathyroid gland in the tracheoesophageal groove. We dissected it free onto its vascular pedicle. We florentino a pre-excision PTH from the internal jugular vein. We then removed the right upper parathyroid gland and ligated its vascular pedicle with3-0 silk sutures, and passed it off the table as a permanent specimen. At 10 and 15 minutes, we florentino post-excision PTHs from the internal jugular vein. We then irrigated the operative field. A Valsalva to 30 millimeters of mercury was accomplished by Anesthesia. Hemostasis was assured. The recurrent laryngeal nerve was tested again, and it was fullyfunctional on the nerve monitor. We placed Surgicel in the paratracheal space, closed the strap muscles using running 3-0 Vicryl suture, the platysma with interrupted 3-0 Vicryl suture, and the skin with running 5-0 Prolene subcuticular suture, followed by placement of Dermabond and removal of the Prolene suture. Because our intraoperative parathyroid hormone levels did not decrease appropriately, we elected toexplore the other three parathyroid glands. This was done in similar fashion to the first gland explored. The left upper parathyroid gland was identified and was morphologically normal. A tiny piece of the gland was sent for frozen section confirmation. The left cervical thymus was prominent and nodular. It was pulled into the neck, and amputated at its base. There was a nodule that was a possible parathyroid within this tissue that was sent for frozen section. While we were waiting for this result, we continued exploring. We opened the carotid sheath on the left, and there was brannon tissue within it. This was sent for permanent section. At this point, the frozen section from the thymic tissue returned and was in fact parathyroid tissue. At this point, we decided to send a PTH level from the left jugular vein, and then we then returned to exploring the right side. We sent two separate frozen sections from candidate right-sided parathyroid glands, but both were only fat. No abnormal parathyroid gland was visualized. The final PTH level returned 14, and we decided to conclude the casewithout locating the 4th parathyroid gland. We then irrigated the operative field. A Valsalva to 30 millimeters of mercury was accomplished by Anesthesia. Hemostasis was assured bilaterally. The recurrent laryngeal nerve were tested again, andboth were fully functional on the nerve monitor. We placed Surgicel in the paratracheal space, closed the strap muscles using running 3-0 Vicryl suture, the platysma with interrupted 3-0 Vicryl suture, and the skin with running 5-0 Prolene subcuticular suture, followed by placement of Dermabond andremoval of the Prolene suture. IOPTH findings: Baseline: 284 pg/mL Preexcision 255 pg/mL 10-min post-excision 79 pg/mL 15-min post-excision 66 pg/mL 11:44 am PTH level 14 pg/mL Infection Bundle used? N/A Attestation: Case Date: 11/02/2015 I was present and I participated during the entire procedure (does not need to include opening and closing). SHERINE FONTANA MD 11/02/2015 documented in this encounter Plan of Treatment Upcoming Encounters Date Type Department Care Team (Late st Contact Info) Description 01/22/2024 10:30 AM EST Appointment Mammography/[place] [phone] Ladi Mendosa MD [facility] HEMATOLOGY/[place] [address] 01/30/2024 11:30 AM EST Office Visit Dermatology at [address] [phone] Nilda Luis MD [facility] DR L[place] [address] 02/15/2024 9:30 AM EST [place] [phone] [place] [address] documented as of this encounter Procedures Procedure Name Priority Date/Time Associated Diagnosis Comments ECG SCAN 11/04/2015 12:00 AM EDT PTH Routine 11/03/2015 7:36 AM EDT CALCIUM Routine 11/03/2015 7:36 AM EDT CARDIAC ENZYMES ([facility]) Routine 11/02/2015 2:00 PM EDT EKG 12-LEAD STAT 11/02/2015 1:47 PM EDT Essential hypertension, hypertension with unspecified goal SPECIMEN TO PATHOLOGY Routine 11/02/2015 12:24 PM EDT SPECIMEN TO PATHOLOGY STAT 11/02/2015 11:59 AM EDT INTRAOPERATIVE PTH ([facility]) STAT 11/02/2015 11:46 AM EDT SPECIMEN TO PATHOLOGY STAT 11/02/2015 11:42 AM EDT SPECIMEN TO PATHOLOGY STAT 11/02/2015 11:13 AM EDT SPECIMEN TO PATHOLOGY STAT 11/02/2015 11:00 AM EDT SPECIMEN TO PATHOLOGY STAT 11/02/2015 10:45 AM EDT INTRAOPERATIVE PTH ([facility]) STAT 11/02/2015 9:50 AM EDT INTRAOPERATIVE PTH ([facility]) STAT 11/02/2015 9:45 AM EDT SPECIMEN TO PATHOLOGY Routine 11/02/2015 9:38 AM EDT INTRAOPERATIVE PTH ([facility]) STAT 11/02/2015 9:35 AM EDT SPECIMEN TO PATHOLOGY Routine 11/02/2015 9:21 AM EDT SPECIMEN TO PATHOLOGY STAT 11/02/2015 9:17 AM EDT SURGICAL PATHOLOGY REPORT Routine 11/02/2015 9:16 AM EDT INTRAOPERATIVE PTH ([facility]) STAT 11/02/2015 9:12 AM EDT INTRAOPERATIVE PTH ([facility]) STAT 11/02/2015 8:59 AM EDT THYMECTOMY, TRANSCERVICAL APPROACH (WRVU 17.16) 11/02/2015 7:39 AM EDT HYPERPARATHYROIDISM FACIAL NERVE MONITORING, SETUP LARYNGEAL (WRVU 1.57) 11/02/2015 7:39 AM EDT HYPERPARATHYROIDISM PARATHYROIDECTOMY OR EXPLORATION OF PARATHYROID(S) (WRVU 15.6) 11/02/2015 7:39 AM EDT HYPERPARATHYROIDISM documented in this encounter Results * Calcium (12/09/2015 10:20 AM EDT) Calcium 9.3 8.5 - 10.5 mg/dL [facility] Blood specimen (specimen) 12/09/2015 10:20 AM EDT 12/09/2015 10:25 AM EDT Narrative Resulting Agency Comment Spec In Lab Sherine Fontana MD CHEMISTRY ORDERAB LES Performing Organization Address [facility] Co de Phone Number [facility] [place] [address] * SCAN DOC: ECG (11/04/2015 12:00 AM EDT) Scanning Provider MEDIA MGR SCAN EXT O RDR/RSLT * Calcium (11/03/2015 7:36 AM EDT) Calcium 9.4 8.5 - 10.5 mg/dL [facility] Blood specimen (specimen) 11/03/2015 7:36 AM EDT 11/03/2015 7:44 AM EDT Narrative Resulting Agency Comment Spec In Lab Sherine Fontana MD CHEMISTRY ORDERAB LES Performing Organization Address City/[facility]/ZIP Co de Phone Number [facility] [place] [address] * (ABNORMAL) PTH (11/03/2015 7:36 AM EDT) PTH 7(L) 15 - 65 pg/mL [facility] Blood specimen (specimen) 11/03/2015 7:36 AM EDT 11/03/2015 7:44 AM EDT Narrative Resulting Agency Comment Spec In Lab Sherine Fontana MD CHEMISTRY ORDERAB LES Performing Organization Address [facility] Co de Phone Number [facility] [place] [address] * Cardiac Enzymes (11/02/2015 2:00 PM EDT) Pathologist [facility] Troponin-T <0.03 <=0.03 ng/mL [facility] Comment: 0.03 ng/mL: Represents the 99th percentile upper reference limit for normals. >0.03 ng/mL: Elevated cardiac troponin T level indicative of myocardial damage. Diagnosis of acute, evolving or recent SD requires a typical rise and gradual fall of cTnT with at least ONE of the following: a) Ischemic symptoms b) Development of pathologic Q waves on the ECG c) ECG changes indicative of eschemia (S-T segment elevation/depression) d) Coronary artery intervention Serial bloods should be obtained for testing on admission, at 6 to 9 hrs and again at 12 to 24 hrs if earlier samples are negative and the clinical index of suspicion is high. Reference: [Myocardial infarction redefined? a consensus document of the Joint Society of Cardiology/[employer] Committee for the redefinition of myocardial infarction. ??Journal of the [place] [employer] 2000; 36: 959-969] CK, Total 130 0 - 160 unit/L [facility] Blood specimen (specimen) 11/02/2015 2:00 PM EDT 11/02/2015 2:02 PM EDT Narrative Resulting Agency Comment Spec In Lab Sherine Fontana MD CHEMISTRY ORDERAB LES Performing Organization Address [facility] Co de Phone Number [facility] [place] [address] * EKG 12 Lead (11/02/2015 1:47 PM EDT) Ventricular rate 110 BPM MUSE SYSTEM Atrial Rate 110 BPM MUSE SYSTEM P-R Interval 96 ms MUSE SYSTEM QRS Duration 82 ms MUSE SYSTEM Q-T Interval 488 ms MUSE SYSTEM QTC Calculated (Bezet) 660 ms MUSE SYSTEM Calculated R Saxis -22 degrees MUSE SYSTEM Calculated T Saxis 44 degrees MUSE SYSTEM INTERPRETATION Sinus tachycardia with short PA Nonspecific ST and T wave abnormality Abnormal ECG No previous ECGs available Confirmed by MD Alex, Denny ([id number]) on 11/02/2015 4:12:47 PM MUSE SYSTEM 11/02/2015 1:47 PM EDT 11/02/2015 4:12 PM EDT Maximilian Alberto MD ECG ORDERABLES Performing Organization Address [facility] Co de Phone Number MUSE SYSTEM * Specimen to Pathology (surgical or derm) (11/02/2015 12:24 PM EDT) AP Specimen 11/02/2015 12:2 4 PM EDT 11/02/2015 12:24 PM EDT Narrative [facility] - 11/02/2015 12:24 PM EDT Specimen requisition ordered. ??Separate Pathology report to follow Sherine Fontana MD PATHOLOGY/CYTOLOG Y ORDERABLES Performing Organization Address [facility] Co de Phone Number [facility] [place] [address] * Specimen to Pathology (surgical or derm) (11/02/2015 11:59 AM EDT) AP Specimen 11/02/2015 11:5 9 AM EDT 11/02/2015 11:59 AM EDT Narrative [facility] - 11/02/2015 11:59 AM EDT Specimen requisition ordered. ??Separate Pathology report to follow Sherine Fontana MD PATHOLOGY/CYTOLOG Y ORDERABLES Performing Organization Address [facility] Co de Phone Number [facility] [place] [address] * (ABNORMAL) Intraoperative PTH (11/02/2015 11:46 AM EDT) Intraoper PTH 14(L) 15 - 65 pg/mL [facility] Comment: Called by: harry, Read back by: kevin barbosa, Date/Time:11/02/15 12:34. A 50 % decrease in venous iPTH levels at 10 min post adenoma excision is expected if all the hypersecreting parathyroid tissue has been removed (David BHAT et al. Surgery 1993:114; [id number]) Blood specimen (specimen) 11/02/2015 11:46 AM EDT 11/02/2015 11:52 AM EDT Narrative Resulting Agency Comment Spec In Lab Sherine Fontana MD CHEMISTRY ORDERAB LES Performing Organization Address [facility] [place] [address] * Specimen to Pathology (surgical or derm) (11/02/2015 11:42 AM EDT) AP Specimen 11/02/2015 11:4 2 AM EDT 11/02/2015 11:42 AM EDT Narrative [facility] - 11/02/2015 11:42 AM EDT Specimen requisition ordered. ??Separate Pathology report to follow Sherine Fontana MD PATHOLOGY/CYTOLOG Y ORDERABLES Performing Organization Address [facility] [place] [address] * Specimen to Pathology (surgical or derm) (11/02/2015 11:13 AM EDT) AP Specimen 11/02/2015 11:1 3 AM EDT 11/02/2015 11:13 AM EDT Narrative [facility] - 11/02/2015 11:13 AM EDT Specimen requisition ordered. ??Separate Pathology report to follow Sherine Fontana MD PATHOLOGY/CYTOLOG Y ORDERABLES Performing Organization Address [facility] [place] [address] * Specimen to Pathology (surgical or derm) (11/02/2015 11:00 AM EDT) AP Specimen 11/02/2015 11:0 0 AM EDT 11/02/2015 11:00 AM EDT Narrative [facility] - 11/02/2015 11:00 AM EDT Specimen requisition ordered. ??Separate Pathology report to follow Sherine Fontana MD PATHOLOGY/CYTOLOG Y ORDERABLES Performing Organization Address City/[facility]/ZIP Co de Phone Number [facility] [place] [address] * Specimen to Pathology (surgical or derm) (11/02/2015 10:45 AM EDT) AP Specimen 11/02/2015 10:4 5 AM EDT 11/02/2015 10:45 AM EDT Narrative [facility] - 11/02/2015 10:45 AM EDT Specimen requisition ordered. ??Separate Pathology report to follow Sherine Fontana MD PATHOLOGY/CYTOLOG Y ORDERABLES Performing Organization Address [facility] [place] [address] * (ABNORMAL) Intraoperative PTH (11/02/2015 9:50 AM EDT) Intraoper PTH 66(H) 15 - 65 pg/mL [facility] Comment: Called by: RENETTA, Read back by: Kevin, Date/Time:11/02/15 10:24 15-min post excision. A 50 % decrease in venous iPTH levels at 10 min post adenoma excision is expected if all the hypersecreting parathyroid tissue has been removed (David GL et al. Surgery 1993:114; [id number]) Blood specimen (specimen) 11/02/2015 9:50 AM EDT 11/02/2015 9:55 AM EDT Narrative Resulting Agency Comment Spec In Lab Sherine Fontana MD CHEMISTRY ORDERAB LES Performing Organization Address City/[facility]/ZIP Co de Phone Number [facility] [place] [address] * (ABNORMAL) Intraoperative PTH (11/02/2015 9:45 AM EDT) Intraoper PTH 79(H) 15 - 65 pg/mL [facility] Comment: Called by: RENETTA, Read back by: Edith, Date/Time:11/02/15 10:18 *10-min post-excision. A 50 % decrease in venous iPTH levels at 10 min post adenoma excision is expected if all the hypersecreting parathyroid tissue has been removed (David BHAT et al. Surgery 1993:114; [id number]) Blood specimen (specimen) 11/02/2015 9:45 AM EDT 11/02/2015 9:49 AM EDT Narrative Resulting Agency Comment Spec In Lab Sherine Fontana MD CHEMISTRY ORDERAB LES Performing Organization Address [facility] Co de Phone Number [facility] [place] [address] * Specimen to Pathology (surgical or derm) (11/02/2015 9:38 AM EDT) AP Specimen 11/02/2015 9:38 AM EDT 11/02/2015 9:38 AM EDT Narrative [facility] - 11/02/2015 9:38 AM EDT Specimen requisition ordered. ??Separate Pathology report to follow Sherine Fontana MD PATHOLOGY/CYTOLOG Y ORDERABLES Performing Organization Address [facility] [place] [place] [address] * (ABNORMAL) Intraoperative PTH (11/02/2015 9:35 AM EDT) Intraoper PTH 255(H) 15 - 65 pg/mL [facility] Comment: Called by: RENETTA, Read back by: Edith, Date/Time:11/02/15 10:10. *repeat pre-excision A 50 % decrease in venous iPTH levels at 10 min post adenoma excision is expected if all the hypersecreting parathyroid tissue has been removed (David GL et al. Surgery 1993:114; [id number]) Blood specimen (specimen) 11/02/2015 9:35 AM EDT 11/02/2015 9:39 AM EDT Narrative Resulting Agency Comment Spec In Lab Sherine Fontana MD CHEMISTRY ORDERAB LES Performing Organization Address [facility] Co de Phone Number [facility] [place] [address] * Specimen to Pathology (surgical or derm) (11/02/2015 9:21 AM EDT) AP Specimen 11/02/2015 9:21 AM EDT 11/02/2015 9:21 AM EDT Narrative [facility] - 11/02/2015 9:21 AM EDT Specimen requisition ordered. ??Separate Pathology report to follow Sherine Fontana MD PATHOLOGY/CYTOLOG Y ORDERABLES Performing Organization Address [facility] [place] [address] * Specimen to Pathology (surgical or derm) (11/02/2015 9:17 AM EDT) AP Specimen 11/02/2015 9:17 AM EDT 11/02/2015 9:17 AM EDT Narrative [facility] - 11/02/2015 9:17 AM EDT Specimen requisition ordered. ??Separate Pathology report to follow Sherine Fontana MD PATHOLOGY/CYTOLOG Y ORDERABLES Performing Organization Address [facility] [place] [address] * Surgical Pathology Report (11/02/2015 9:16 AM EDT) Pathologist [facility] Surgical Pathology Report [id number] ? [facility]; [facility]; B The signing pathologist has (i) examined the relevant preparation(s) for the specimen(s) and (ii) rendered or confirmed the diagnosis(es). . ?Frozen Section FROZEN SECTION DIAGNOSIS A - Right lower parathyroid, for frozen section No parathyroid present D - ? Right upper parathyroid for frozen section: No parathyroid present E - ? Left upper parathyroid for frozen section: parathyroid gland identified F - ? Cervical thymus for frozen section: parathyroid gland identified. H - ? Right parathyroid gland for frozen section: No parathyroid seen Electronically signed by: ??Krishna Zaman MD Verified: ??11/12/2015 ?Pathologist This intraoperative consultation should be interpreted as a preliminary diagnosis pending review of the entire specimen and special studies, if any. ?Surgical Pathology DIAGNOSIS A - Right lower parathyroid, for frozen [...] neck contents: Two benign lymph nodes (0/2). Electronically signed by: ??Tammy Maldonado DO Verified: ??11/09/2015 ?Pathologist . CLINICAL INFORMATION Specimen Submitted: A - Right lower parathyroid B - Central neck contents C - Right lower parathyroid D - ? Right upper parathyroid for frozen section E - ? Left upper parathyroid for frozen section F - ? Cervical thymus for frozen section G - Left carotid sheath mass H - Question right parathyroid gland for frozen section I - Central neck contents Clinical History: Hyperparathyroidi sm Clinical Diagnosis: Same FROZEN SECTION Frozen section(s) performed. ??Please refer to separate electronic frozen section report(s). SPECIMEN PROCESSING A- ??Labeled/Fixativ e:? Right lower parathyroid, fresh. Quantity/Size: Single, 0.7 x 0.3 x 0.1 cm, weighing 0.01 grams. Tissue Description: [place] tissue, frozen section remnant. Sections/Processi ng: Specimen is submitted in its entirety. (T1) B- ??Labeled/Fixativ e: Central neck contents, fresh. Quantity/Size: Multiple, 2.0 x 1.9 x 0.8 cm in aggregate. Tissue Description: Two rubbery fragments of fibrofatty tissue. Sections/Processi ng: Specimen surface is inked black and specimen is submitted in its entirety. (R4) C- ??Labeled/Fixativ e: Right lower parathyroid, fresh. Quantity/Size: Single, 2.5 x 1.1 x 0.6 cm, and weighing 1.1 grams. Tissue Description: Rubbery, brown, fibrofatty tissue with superficial vessels. Cut surface reveals homogenous white tissue and no apparent lesions. Sections/Processi ng: The specimen is serially sectioned and submitted in its entirety. (T2) D- ??Labeled/Fixativ e:? Right upper parathyroid, fresh. Quantity/Size: Single, 0.5 x 0.4 x 0.1 cm, weighing 0.04 grams. Tissue Description: [place] tissue fragment, frozen section remnants. Sections/Processi ng: Specimen is submitted in its entirety. (T1) E- ??Labeled/Fixativ e:? Left upper parathyroid, fresh. Quantity/Size: Single, 0.4 x 0.3 x 0.1 cm, weighing 0.02 grams. Tissue Description: Frozen section remnants. Sections/Processi ng: Specimen is submitted in its entirety. (T1) F- ??Labeled/Fixativ e:? Cervical thymus, fresh. Quantity/Size: Single, 1.5 x 1.3 x 0.3 cm, weighing 0.5 grams. Tissue Description: Soft yellow tissue, frozen section remnants. Sections/Processi ng: Specimen is submitted in its entirety. (T1) G- ??Labeled/Fixativ e: Left carotid sheath mass, fresh. Quantity/Size: Single, 1.3 x 0.9 x 0.3 cm. Tissue Description: Round, fibro-fatty tissue with attached 0.3 x 0.3 cm lymph node. Sections/Processi ng: The specimen surface is inked black, serially sectioned and submitted in its entirety. (T1) H- ??Labeled/Fixativ e: Question right parathyroid gland, fresh. Quantity/Size: Single, 0.5 x 0.3 x 0.1 cm, weighing 0.01 grams. . SPECIMEN PROCESSING Tissue Description: Fatty tissue, frozen section remnants. Sections/Processi ng: The specimen is submitted in its entirety. (T1) I- ??Labeled/Fixativ e: Central neck contents, fresh. Quantity/Size: Single, 2.0 x 1.1 x 0.6 cm. Tissue Description: Fibrofatty tissue containing six lymph nodes, the largest measuring 0.9 x 0.6 cm. Sections/Processi ng: All lymphoid tissue is submitted as follows: (1) 2 intact nodes, differentially inked; (2) one node, bisected; (3) 2 intact nodes, differentially inked; (4)one intact node.(R4) ??rm _ [facility] 11/02/2015 9:16 AM EDT Sherine Fontana MD PATHOLOGY/CYTOLOG Y ORDERABLES Performing Organization Address [facility] Co de Phone Number [facility] [place] [address] * (ABNORMAL) Intraoperative PTH (11/02/2015 9:12 AM EDT) Intraoper PTH 380(H) 15 - 65 pg/mL [facility] Comment: Called by: RENETTA, Read back by: Kevin Bocanegra, Date/Time:11/02/15 09:47. Pre-Excision #1 A 50 % decrease in venous iPTH levels at 10 min post adenoma excision is expected if all the hypersecreting parathyroid tissue has been removed (David GL et al. Surgery 1993:114; [id number]) Corrected from 380 pg/mL [HI] on 11/02/15 09:56 by Tahira Munguia Blood specimen (specimen) 11/02/2015 9:12 AM EDT 11/02/2015 9:16 AM EDT Narrative Resulting Agency Comment Spec In Lab Sherine Fontana MD CHEMISTRY ORDERAB LES Performing Organization Address [facility] Co de Phone Number [facility] [place] [address] * (ABNORMAL) Intraoperative PTH (11/02/2015 8:59 AM EDT) Intraoper PTH 284(H) 15 - 65 pg/mL [facility] Comment: Called by: RENETTA, Read back by: Kevin Webb, Date/Time:11/02/15 09:32. *Baseline A 50 % decrease in venous iPTH levels at 10 min post adenoma excision is expected if all the hypersecreting parathyroid tissue has been removed (David GL et al. Surgery 1993:114; [id number]) Blood specimen (specimen) 11/02/2015 8:59 AM EDT 11/02/2015 9:02 AM EDT Narrative Resulting Agency Comment Spec In Lab Sherine Fontana MD CHEMISTRY ORDERAB LES [facility] [place] [address] documented in this encounter Visit Diagnoses Not on filedocumented in this encounter Admitting Diagnoses Diagnosis Hyperparathyroidism Hyperparathyroidism, unspecified documented in this encounter Administered Medications Inactive Administered Medications - up to 3 most recent administrations Medication Order MAR Action Action Date Dose Rate Site acetaminophen (TYLENOL) tablet 1,000 mg 1,000 mg, Oral, ONCE, 1 dose, On Sun11/02/15 at 0745, Maximum dose of acetaminophen is 4000 mg from all sources in 24 hours., Day of Surgery (Day of Procedure), Routine Given 11/02/2015 7:45 AM EDT 1,000 mg acetaminophen (TYLENOL) tablet 650 mg 650 mg, Oral, EVERY 4 HOURS PRN, Starting on Sun11/02/15 at 1425, Until Sun11/03/15 at 1825, Pain, Maximum dose of acetaminophen is 4000 mg from all sources in 24 hours., Routine Given 11/03/2015 1:11 PM EDT 650 mg Given 11/03/2015 3:55 AM EDT 650 mg Given 11/02/2015 10:19 PM EDT 650 mg BUpivacaine-EPINEPHrine 0.25 %-1:200,000 injection ONCE PRN, Starting on Sun11/02/15 at 0836, Until Sun11/03/15 at 1825, Intra-Operative (Intra-Procedure), Routine Given 11/02/2015 8:36 AM EDT 25 mg calcium carbonate (TUMS) chewable tablet 1,000 mg 1,000 mg, Oral, 3 TIMES DAILY, First dose on Sun11/02/15 at 2100, Until Discontinued, Give scheduled. For Ca replacement., Routine Given 11/03/2015 3:00 PM EDT 1,000 mg Given 11/03/2015 8:44 AM EDT 1,000 mg Given 11/02/2015 10:20 PM EDT 1,000 mg calcium carbonate (TUMS) chewable tablet 1,000 mg 1,000 mg, Oral, ONCE, 1 dose, On Sun11/03/15 at 1130, Routine Given 11/03/2015 1:08 PM EDT 1,000 mg cholecalciferol (Vitamin D3) tablet 800 Units 800 Units, Oral, 3 TIMES DAILY, First dose on Sun11/02/15 at 2100, Until Discontinued, Routine Given 11/03/2015 2:59 PM EDT 800 Units Given 11/03/2015 8:45 AM EDT 800 Units Given 11/02/2015 10:20 PM EDT 800 Units DILTiazem (DILTIAZEM CD) ER capsule 240 mg 240 mg, Oral, DAILY, First dose on Sun11/02/15 at 1730, Until Discontinued, DO NOT CRUSH OR OPEN, Routine Given 11/02/2015 10:20 PM EDT 240 mg FLUoxetine (PROzac) capsule 40 mg 40 mg, Oral, DAILY, First dose on Sun11/02/15 at 1730, Until Discontinued, Routine Given 11/03/2015 8:44 AM EDT 40 mg Given 11/02/2015 5:14 PM EDT 40 mg furosemide (LASIX) tablet 20 mg 20 mg, Oral, DAILY, First dose on Sun11/02/15 at 1730, Until Discontinued, Routine Given 11/03/2015 8:44 AM EDT 20 mg HYDROmorphone (DILAUDID) syringe 0.2-0.4 mg 0.2-0.4 mg, Intravenous, EVERY 5 MIN PRN, Pain, Starting on Sun11/02/15 at 1021, Until Sun11/02/15 at 1542, For moderate pain (4-6) give: 0.2 mg every 5 minute prn For severe pain (7-10) give: 0.4 mg every 5 minutes prn Maximum dose: 4 mg per hour Hold for respiratory rate less than 10 per minute., PACU Recovery Given 11/02/2015 1:25 PM EDT 0.4 mg Given 11/02/2015 1:19 PM EDT 0.4 mg ketorolac (TORADOL) injection 15 mg 15 mg, Intravenous, EVERY 6 HOURS, 20 doses, First dose on Sun11/02/15 at 1400, Last dose on Sun11/07/15 at 0800, Routine Given 11/02/2015 1:44 PM EDT 15 mg labetalol (NORMODYNE,TRANDATE) injection 10 mg 10 mg, Intravenous, EVERY 2 HOURS PRN, Starting on Sun11/02/15 at 1404, Until Sun11/03/15 at 1825, High Blood Pressure, Routine Given 11/02/2015 2:09 PM EDT 10 mg lactated ringers infusion 1,000 mL 1,000 mL, at 100 mL/hr, Intravenous, CONTINUOUS, Starting on Sun11/02/15 at 0745, Until Sun11/02/15 at 1334, Day of Surgery (Day of Procedure) New Bag 11/02/2015 9:49 AM EDT New Bag 11/02/2015 7:45 AM EDT 1,000 mLs 100 mL/hr meTOPROLOL (LOPRESSOR) injection 5 mg 5 mg, Intravenous, EVERY 5 MIN PRN, Starting on Sun11/02/15 at 1406, Until Sun11/03/15 at 1825, Elevated Heart Rate, may give up to 15 mg, For systolic blood pressure >160, not controlled by home medications, hold for HR <60 Given 11/03/2015 12:48 AM EDT 5 mg Given 11/02/2015 2:24 PM EDT 5 mg norethindrone (AYGESTIN) tablet 5 mg 5 mg, Oral, DAILY, First dose on Sun11/02/15 at 1730, Until Discontinued, Routine Given 11/02/2015 10:20 PM EDT 2.5 mg ondansetron (ZOFRAN) injection 4 mg 4 mg, Intravenous, EVERY 8 HOURS PRN, Starting on 9/13/16 at 1556, Until Sun11/03/15 at 1825, Nausea, May repeat times one in 30 minutes if ineffective. If multiple antiemetics are ordered, give ondansetron first. ondansetron (ZOFRAN) tablet 4 mg 4 mg, Oral, EVERY 8 HOURS PRN, Starting on Sun11/02/15 at 1556, Until Sun11/03/15 at 1825, Nausea, Vomiting, If multiple antiemetics are ordered, use ondansetron first. PO Preferred. If patient unable to take PO, may give IV if ordered. May repeat times one in 45 minutes if ineffective. If unable to take PO, may give IV., Routine Given 11/03/2015 10:53 AM EDT 4 mg oxyCODONE (ROXICODONE) immediate release tablet 5 mg 5 mg, Oral, EVERY 4 HOURS PRN, Starting on Sun11/02/15 at 1425, Until Sun11/03/15 at 1825, Pain, May repeat once in 30 minutes if ineffective., Routine Given 11/03/2015 1:11 PM EDT 5 mg Given 11/03/2015 5:52 AM EDT 5 mg Given 11/02/2015 10:20 PM EDT 5 mg potassium chloride (K-DUR/KLOR-CON) extended release tablet 20 mEq 20 mEq, Oral, 2 TIMES DAILY, First dose on Sun11/02/15 at 2100, Until Discontinued, 20 mEq tablet may be dissolved in water for administration, Routine Given 11/03/2015 8:44 AM EDT 20 mEq Given 11/02/2015 10:19 PM EDT 20 mEq simvastatin (ZOCOR) tablet 10 mg 10 mg, Oral, DAILY WITH DINNER, First dose on Sun11/02/15 at 1700, Until Discontinued Given 11/02/2015 10:20 PM EDT 10 mg valsartan (DIOVAN) tablet 160 mg 160 mg, Oral, DAILY, First dose on Sun11/02/15 at 1730, Until Discontinued, Routine Given 11/02/2015 11:2 5 PM EDT 160 mg documented in this encounter Active and Recently Administered Medications Times are shown in EDT. Scheduled Medication Order 11/01/2015 11/02/2015 11/03/2015 acetaminophen (TYLENOL) tablet 1,000 mg (COMPLETED) 1,000 mg, Oral, ONCE, 1 dose, On Sun11/02/15 at 0745, Maximum dose of acetaminophen is 4000 mg from all sources in 24 hours., Day of Surgery (Day of Procedure), Routine 0745 (Given - Provider: Karlee Camacho RN) calcium carbonate (TUMS) chewable tablet 1,000 mg 1,000 mg, Oral, 3 TIMES DAILY, First dose on Sun11/02/15 at 2100, Until Discontinued, Give scheduled. For Ca replacement., Routine 2220 (Given - Provider: Becki Colon RN) 0844 (Given - Provider: Mariel Dill RN)1500 (Given - Provider: Mariel Dill RN) calcium carbonate (TUMS) chewable tablet 1,000 mg (COMPLETED) 1,000 mg, Oral, ONCE, 1 dose, On Sun11/03/15 at 1130, Routine 1308 (Given - Provid er: Mariel Dill RN) cholecalciferol (Vitamin D3) tablet 800 Units 800 Units, Oral, 3 TIMES DAILY, First dose on Sun11/02/15 at 2100, Until Discontinued, Routine 2220 (Given - Provider: Becki Colon RN) 0845 (Given - Provider: Mariel Dill RN)1459 (Given - Provider: Mariel Dill RN) DILTiazem (DILTIAZEM CD) ER capsule 240 mg 240 mg, Oral, DAILY, First dose on Sun11/02/15 at 1730, Until Discontinued, DO NOT CRUSH OR OPEN, Routine 2220 (Given - Provider: Becki Colon RN) 0900 (Not Given - Provider: Mariel Dill RN - Reason: Patient/family refused - Comment: pt will take it at home tonight) FLUoxetine (PROzac) capsule 40 mg 40 mg, Oral, DAILY, First dose on Sun11/02/15 at 1730, Until Discontinued, Routine 1714 (Given - Provider: Tawana Arrieta RN) 0844 (Given - Provider: Mariel Dill RN) furosemide (LASIX) tablet 20 mg 20 mg, Oral, DAILY, First dose on Sun11/02/15 at 1730, Until Discontinued, Routine 1730 (Not Given - Provider: Tawana Arrieta RN - Reason: Patient/family refused) 0844 (Given - Provider: Mariel Dill RN) ketorolac (TORADOL) injection 15 mg (CANCELED) 15 mg, Intravenous, EVERY 6 HOURS, 20 doses, First dose on Sun11/02/15 at 1400, Last dose on Sun11/07/15 at 0800, Routine 1344 (Given - Provider: Lio Le, JENNYFER) norethindrone (AYGESTIN) tablet 5 mg 5 mg, Oral, DAILY, First dose on Sun11/02/15 at 1730, Until Discontinued, Routine 2220 (Given - Provider: Becki Colon RN - Comment: pt reports that she only takes half of the pill (2.5 mg)) 0900 (Not Given - Provider: Mariel Dill RN - Reason: Patient/family refused) potassium chloride (K-DUR/KLOR-CON) extended release tablet 20 mEq 20 mEq, Oral, 2 TIMES DAILY, First dose on Sun11/02/15 at 2100, Until Discontinued, 20 mEq tablet may be dissolved in water for administration, Routine 2219 (Given - Provider: Becki Colon, JENNYFER) 0844 (Given - Provider: Mariel Dill, JENNYFER) simvastatin (ZOCOR) tablet 10 mg 10 mg, Oral, DAILY WITH DINNER, First dose on Sun11/02/15 at 1700, Until Discontinued 2220 (Given - Provider: Becki Colon, JENNYFER) valsartan (DIOVAN) tablet 160 mg 160 mg, Oral, DAILY, First dose on Sun11/02/15 at 1730, Until Discontinued, Routine 2100 (Hold - Provider: Becki Colon, JENNYFER - Reason: Medication not available - Comment: pharmacy has been requested to send to unit)2325 (Given - Provider: Becki Colon RN - Comment: late delivery from pharmacy) 0900 (Not Given - Provider: Mariel Dill RN - Reason: Patient/family refused - Comment: pt will take it at home tonight) Continuous Medication Order 11/01/2015 11/02/2015 11/03/2015 lactated ringers infusion 1,000 mL (CANCELED) 1,000 mL, at 100 mL/hr, Intravenous, CONTINUOUS, Starting on Sun11/02/15 at 0745, Until Sun11/02/15 at 1334, Day of Surgery (Day of Procedure) 0745 (New Bag - Provider: Haskins RN)0949 (New Bag - Provider: Franky Naranjo MD)1219 (Anesthesia Volume Adjustment - Provider: Franky Naranjo MD) PRN Medication Order 11/01/2015 11/02/2015 11/03/2015 acetaminophen (TYLENOL) tablet 650 mg 650 mg, Oral, EVERY 4 HOURS PRN, Starting on Sun11/02/15 at 1425, Until Sun11/03/15 at 1825, Pain, Maximum dose of acetaminophen is 4000 mg from all sources in 24 hours., Routine 1435 (Given - Provider: Lio Le, RN)1751 (Given - Provider: Tawana Arrieta RN)2219 (Given - Provider: Becki Colon RN) 0355 (Given - Provider: Mariposa Wynne RN)1311 (Given - Provider: Mariel Dill RN) BUpivacaine-EPINEPHrine 0.25 %-1:200,000 injection (CANCELED) ONCE PRN, Starting on Sun11/02/15 at 0836, Until Sun11/03/15 at 1825, Intra-Operative (Intra-Procedure), Routine 0836 (Given - Provider: Sherine Fontana MD) HYDROmorphone (DILAUDID) syringe 0.2-0.4 mg (CANCELED) 0.2-0.4 mg, Intravenous, EVERY 5 MIN PRN, Pain, Starting on Sun11/02/15 at 1021, Until Sun11/02/15 at 1542, For moderate pain (4-6) give: 0.2 mg every 5 minute prn For severe pain (7-10) give: 0.4 mg every 5 minutes prn Maximum dose: 4 mg per hour Hold for respiratory rate less than 10 per minute., PACU Recovery 1319 (Given - Provider: Lio Le RN)1325 (Given - Provider: Lio Le RN) labetalol (NORMODYNE,TRANDATE) injection 10 mg 10 mg, Intravenous, EVERY 2 HOURS PRN, Starting on Sun11/02/15 at 1404, Until Sun11/03/15 at 1825, High Blood Pressure, Routine 1409 (Given - Provider: Lio Le RN) meTOPROLOL (LOPRESSOR) injection 5 mg 5 mg, Intravenous, EVERY 5 MIN PRN, Starting on Sun11/02/15 at 1406, Until Sun11/03/15 at 1825, Elevated Heart Rate, may give up to 15 mg, For systolic blood pressure >160, not controlled by home medications, hold for HR <60 1424 (Given - Provider: Lio Le, RN) 0048 (Given - Provider: Becki Colon, RN) ondansetron (ZOFRAN) injection 4 mg(Linked Group 1) 4 mg, Intravenous, EVERY 8 HOURS PRN, Starting on Sun11/02/15 at 1556, Until Sun11/03/15 at 1825, Nausea, May repeat times one in 30 minutes if ineffective. If multiple antiemetics are ordered, give ondansetron first. 1053 (See Alternativ e - Provider: Mariel Dill RN) ondansetron (ZOFRAN) tablet 4 mg(Linked Group 1) 4 mg, Oral, EVERY 8 HOURS PRN, Starting on Sun11/02/15 at 1556, Until Sun11/03/15 at 1825, Nausea, Vomiting, If multiple antiemetics are ordered, use ondansetron first. PO Preferred. If patient unable to take PO, may give IV if ordered. May repeat times one in 45 minutes if ineffective. If unable to take PO, may give IV., Routine 1053 (Given - Provid er: Mariel Dill RN) oxyCODONE (ROXICODONE) immediate release tablet 5 mg 5 mg, Oral, EVERY 4 HOURS PRN, Starting on Sun11/02/15 at 1425, Until Sun11/03/15 at 1825, Pain, May repeat once in 30 minutes if ineffective., Routine 1434 (Given - Provider: Lio Le RN)1751 (Given - Provider: Tawana Arrieta RN)2220 (Given - Provider: Becki Colon, RN) 0552 (Given - Provider: Becki Colon, RN)1311 (Given - Provider: Mariel Dill RN) Linked Groups Order Group 1: ondansetron (ZOFRAN) tablet 4 mgJump to med 4 mg, Oral, EVERY 8 HOURS PRN, Starting on Sun11/02/15 at 1556, Until Sun11/03/15 at 1825, Nausea, Vomiting, If multiple antiemetics are ordered, use ondansetron first. PO Preferred. If patient unable to take PO, may give IV if ordered. May repeat times one in 45 minutes if ineffective. If unable to take PO, may give IV., Routine Or ondansetron (ZOFRAN) injection 4 mgJump to med 4 mg, Intravenous, EVERY 8 HOURS PRN, Starting on Sun11/02/15 at 1556, Until Sun11/03/15 at 1825, Nausea, May repeat times one in 30 minutes if ineffective. If multiple antiemetics are ordered, give ondansetron first. documented in this encounter Care Teams Industrial Gas Fitter Relationship Specialty Start Date End Date Trinh Coates MD [address] [place] [address] PCP - General 01/11/10 documented as of this encounter
--- OUTSIDE RECORDS SUMMARY | 2023-09-07 11:36 | XMS_ITS | Encounter Summary ---
Author Organization [facility] [place] [address] Care Team Providers Care Long Chain Dyeing Machine Operator Name Role Phone Trinh Coates MD Primary Care Provider [phone] Reason for Visit * Reason Onset Date Comments Pre Procedure Call 10/08/2013 Encounter Details Date Type Department Care Team (Late st Contact Info) Description 10/08/2013 Telephone Dermatology at [facility] [address] [place] [address] Becki Linares LPN Pre Procedure Call Social History Tobacco Use Types Packs/Day Years Used Date Smoking Tobacco: Former Sex and Gender Information Value Date Recorded Sex Assigned at Not on file Gender Identity Not on file Sexual Orientation Not on file documented as of this encounter Miscellaneous Notes * Telephone Encounter - Becki Linares LPN - 10/08/2013 9:54 AM EDT Pre-Op excision phone call Date of Call: 10/08/13 Surgical procedure to be done: Excision atypical nevus, left neck on 10/10/13 with Colette Lara MD Spoke with Wendy Sandoval by phone to review the following. Review of medications: instructed to take all medications as directed before procedure. Does not take any blood thinners. Does not have any allergies to Lidocaine or epinephrine. Does not take antibiotics before dental procedures. Does not have any cardiac issues, murmurs or valve replacements. Does not have a pacemaker or defibrillator. Has not had a total joint replacement with in the past 2 years. Recommend that she be accompanied by someone who can drive her home if needed. Discussed length of procedure and time variables. Post operative instructions reviewed including physical limitations after procedure. Phone number given should any questions or concerns arise before or after the procedure. Wendy Sandoval states that she understands all of the above. Becki Linares LPN documented in this encounter Plan of Treatment Upcoming Encounters Date Type Department Care Team (Late st Contact Info) Description 01/22/2024 10:30 AM EST Appointment Mammography/[place] [phone] Ladi Mendosa MD [facility] [place] [address] 01/30/2024 11:30 AM EST Office Visit Dermatology at [address] [place] [phone] Nilda Lius MD [facility] [address] [address] 02/15/2024 9:30 AM EST [place] [phone] [place] [address] documented as of this encounter Visit Diagnoses Not on filedocumented in this encounter Care Teams Long Chain Dyeing Machine Operator Relationship Specialty Start Date End Date Trinh Coates MD [facility] [address] [place] [address] PCP - General 01/11/10 documented as of this encounter
--- OUTSIDE RECORDS SUMMARY | 2023-09-07 11:36 | XMS_ITS | Encounter Summary ---
Author Organization [facility] [place] [address] Care Team Providers Care Back Shoe Cutter Name Role Phone Trinh Coates MD Primary Care Provider [phone] Encounter Details Date Type Department Care Team (Latest Contact Info) Description 12/05/2013 1:00 PM EDT - 12/05/2013 11:59 PM EDT Hospital [place] [address] CLINIC, Trinh Medina MD [facility] [address] [place] [address] Discharge Disposition: Home Social History Tobacco Use Types Packs/Day Years Used Date Smoking Tobacco: Former Sex and Gender Information Value Date Recorded Sex Assigned at Not on file Gender Identity Not on file Sexual Orientation Not on file documented as of this encounter Medications at Time of Discharge Medication Sig Dispensed Refills Start Date End Date fluoxetine (PROZAC) 40 mg capsule Take 40 mg by mouth daily. 10/31/2012 clobetasol (TEMOVATE) 0.05 % creamIndications:Psori asis Apply to affected areas on knees, elbows and hands twice daily for two week cycles as needed. 60 g 1 09/08/2013 03/30/2014 Calcipotriene (DOVONEX) 0.005 % CreaIndications:Psoria sis Apply twice daily for two weeks then stop, alternating with Clobetasol 60 g 1 09/08/2013 11/12/2014 terbinafine (LAMISIL) 250 mg tablet Take 250 mg by mouth daily. 12/09/2015 CARDIZEM LA 240 mg Tablet SR daily. 10/31/2012 10/15/2015 KLOR-CON M20 20 mEq extended release tablet 2 times daily. 10/31/2012 08/03/2017 simvastatin (ZOCOR) 10 mg tablet nightly. 10/31/2012 03/29/2017 triamcinolone (ARISTOCORT) 0.5 % cream 10/24/2012 03/29/2017 Valsartan-Hydrochlorot hiazide 160-25 mg Tab daily. 10/31/20122015 documented as of this encounter Plan of Treatment Upcoming Encounters Date Type Department Care Team (Late st Contact Info) Description 01/22/2024 10:30 AM EST Appointment Mammography/[place] [phone] Ladi Mendosa MD [facility] HEMATOLOGY/[place] [address] 01/30/2024 11:30 AM EST Office Visit Dermatology at [address] [phone] Nilda Luis MD [facility] [address] AME[place]CU[place] [address] 02/15/2024 9:30 AM [place] [address] [place] [address] documented as of this encounter Procedures Procedure Name Priority Date/Time Associated Diagnosis Comments MAMMO SCREENING CAD BILATERAL Routine 12/05/2013 1:26 PM EDT documented in this encounter Results * Mammo digital bilateral Screening with CAD (12/05/2013 1:26 PM EDT) Anatomical Region Laterality Modality Breast Bilateral Mammography 12/05/2013 1:26 PM EDT Narrative 12/09/2013 7:23 AM EDT Reason for Exam: Screening ?? Technique: Craniocaudal (CC) and Medio-lateral Oblique (MLO) views of both breasts obtained with direct digital capture. In addition to routine 2-D imaging, this exam was also performed with 3-D Tomographic Imaging (MLO and CC). ?? The exam was evaluated by CAD version 8.3.17. ?? Findings: ?? This is a negative mammogram (ACR Category 1). There is a stable fibroglandular pattern without significant change from prior studies. There is no mammographic evidence of cancer. The breasts are of scattered density. ?? CONCLUSION: This is a NEGATIVE mammogram (ACR Category 1). ?? Routine screening mammography is recommended with the frequency dependent upon the patients age and breast cancer risk factors. A letter has been sent to this patient by the [facility]. ?? Procedure Note Ira Emmanuel MD - 12/09/2013 Reason for Exam: Screening Technique: Craniocaudal (CC) and Medio-lateral Oblique (MLO) views of both breasts obtained with direct digital capture. In addition to routine 2-D imaging, this exam was also performed with 3-D Tomographic Imaging (MLOand CC). The exam was evaluated by CAD version 8.3.17. Findings: This is a negative mammogram (ACR Category 1). There is a stablefibroglandular pattern without significant change from prior studies. There is no mammographic evidence of cancer. The breasts are of scattered density. CONCLUSION: This is a NEGATIVE mammogram (ACR Category 1). Routine screening mammography is recommended with the frequency dependentupon the patients age and breast cancer risk factors. A letter has been sent to this patient by the [facility]. Trinh Coates MD IMG MAMMO ORDERABLES documented in this encounter Visit Diagnoses Not on filedocumented in this encounter Care Teams Back Shoe Cutter Relationship Specialty Start Date End Date Trinh Coates MD [address] [place], [place] [address] [place] [id number] PCP - General 01/11/10 documented as of this encounter
--- OUTSIDE RECORDS SUMMARY | 2023-09-07 11:36 | XMS_ITS | Encounter Summary ---
Author Organization [facility] Address [facility] [place] [address] Care Team Providers Care Auto Service Advisor Name Role Phone Trinh Coates MD Primary Care Provider [phone] Encounter Details Date Type Department Care Team (Late st Contact Info) Description 09/30/2013 Orders Only Dermatology at [facility] [address] [place] [phone] Colette Lara MD [facility] [address] [place] [address] Social History Tobacco Use Types Packs/Day Years Used Date Smoking Tobacco: Former Sex and Gender Information Value Date Recorded Sex Assigned at Not on file Gender Identity Not on file Sexual Orientation Not on file documented as of this encounter Progress Notes * Becki Linares LPN - 09/30/2013 8:59 AM EDT Labels printed for upcoming surgical procedure on 10/10/13 with Colette Linares LPN documented in this encounter Plan of Treatment Upcoming Encounters Date Type Department Care Team (Late st Contact Info) Description 01/22/2024 10:30 AM EST Appointment Mammography/[place] [phone] Ladi Mendosa MD [facility] HEMATOLOGY/[place] [address] 01/30/2024 11:30 AM EST Office Visit Dermatology at [facility] [address] [place] [address] Nilda Luis MD [facility] [address] [place] [address] 02/15/2024 9:30 AM EST [place] [phone] [place] [address] documented as of this encounter Visit Diagnoses Not on filedocumented in this encounter Care Teams Auto Service Advisor Relationship Specialty Start Date End Date Trinh Coates MD [facility] [address] [place] [address] PCP - General 01/11/10 documented as of this encounter
--- OUTSIDE RECORDS SUMMARY | 2023-09-07 11:36 | XMS_ITS | Encounter Summary ---
Author Organization [facility] [place] [address] Care Team Providers Care Transition Specialist Name Role Phone Trinh Coates MD Primary Care Provider [phone] Encounter Details Date Type Department Care Team (Latest Contact Info) Description 11/07/2012 9:55 AM EDT - 11/07/2012 11:59 PM EDT Hospital [place] [address] CLINIC, Trinh Medina MD [facility] [address] [place] [address] Abnormal findings on diagnostic imaging of breast; Breast calcifications Discharge Disposition: Home Social History Tobacco Use [...] Take 40 mg by mouth daily. 10/31/2012 CARDIZEM LA 240 mg Tablet SR daily. 10/31/2012 10/15/2015 [place], 0.3-30 mg-mcg per tablet 10/31/2012 10/08/2013 KLOR-CON M20 20 mEq extended release tablet 2 times daily. 10/31/2012 simvastatin (ZOCOR) 10 mg tablet nightly. 10/31/2012 03/29/2017 triamcinolone (ARISTOCORT) 0.5 % cream 10/24/201209/2017 Valsartan-Hydrochlorothia zide 160-25 mg Tab daily. 10/31/2012 6 documented as of this encounter Plan of Treatment Upcoming Encounters Date Type Department Care Team (Late st Contact Info) Description 01/22/2024 10:30 AM EST Appointment Mammography[place] [phone] Ladi Mendosa MD [facility] HEMATOLOGY/[place] [address] 01/30/2024 11:30 AM EST Office Visit Dermatology at [place] [address] [place] [phone] Nilda Luis MD [facility] DR [address] [address] 02/15/2024 9:30 AM EST [place] [address] [place] [address] documented as of this encounter Procedures Procedure Name Priority Date/Time Associated Diagnosis Comments MAMMO STEREOTACTIC BIOPSY Routine 11/07/2012 11:03 AM EDT Abnormal findings on diagnostic imaging of breast SPECIMEN TO PATHOLOGY Routine 11/07/2012 10:40 AM EDT Breast calcifications documented in this encounter Results * Mammo stereotactic (11/07/2012 11:03 AM EDT) Anatomical Region Laterality Modality Breast N/A Mammography 11/07/2012 11:0 3 AM EDT Impressions 11/11/2012 12:34 PM EDT Impression: concordant Recommendation: Follow up mammogram with magnification views in 6 months. Results discussed with Ms. Sandoval on 11/09/12. ?? I performed the procedure without a resident. Home phone: [phone] Work phone: [phone] Narrative 11/11/2012 12:34 PM EDT VACUUM ASSISTED [...] are present on specimen digital X-ray. A [employer]ar[employer]od[employer] Eviva-Stereo 13 Cylinder marker clip was placed. [...] the procedure without a resident. Home phone: [phone] Work phone: [phone] Usman Payne MD IMG MAMMO ORDERABLES * Specimen to Pathology (surgical or derm) (11/07/2012 10:40 AM EDT) AP Specimen 11/07/2012 10:4 0 AM EDT 11/07/2012 10:40 AM EDT Narrative AINSLEY TOWNSEND - 11/07/2012 10:40 AM EDT Specimen requisition ordered. ??Separate Pathology report to follow Mary Sanchez MD PATHOLOGY/CYTOLOGY O SHANITA Performing Organization Address City/State/[facility] Co de Phone Number AINSLEY TOWNSEND documented in this encounter Visit Diagnoses Diagnosis Abnormal findings on diagnostic imaging of breast [...] mg, Intradermal, ONCE, 1 dose, On Sosa 11/07/12 at 1030, Routine Given 11/07/2012 10:30 AM EDT 10 mg lidocaine-epiNEPHrine 1 %-1:100,000 injection 20 mL 20 mL, Intradermal, ONCE, 1 dose, On Sosa 11/07/12 at 1030, Routine Given 11/07/2012 10:30 AM EDT 20 mLs documented in this encounter Care Teams Transition Specialist Relationship Specialty Start Date End Date Trinh Coates MD [address] [place] [address] PCP - General 01/11/10 documented as of this encounter
--- OUTSIDE RECORDS SUMMARY | 2023-09-07 11:36 | XMS_ITS | Encounter Summary ---
Author Organization [facility] [place] [address] Care Team Providers Care Nuclear Station Operator Name Role Phone Trinh Coates MD Primary Care Provider [phone] Reason for Visit * Auth/Cert Specialty Diagnoses / Procedures Referred By Diamante marin Referred To Contact Diagnoses Hyperparathyroidism HYPERPARATHYROIDISM Procedures PRO EXPLORE PARATHYROID GLANDS PRG EMG, LARYNX PARATHYROIDECTOMY OR EXPLORATION OF PARATHYROID(S) FACIAL NERVE MONITORING, SETUP LARYNGEAL Referral ID Status Reason Start Date Expiration Date Visits Re quested Visits Authorized [id number] 1 1 Encounter Details Date Type Department Care Team (Latest Contact Info) Description 11/02/2015 6:03 AM EDT - 11/03/2015 4:00 PM EDT Hospital Encounter [address] [place] [address] Sherine Fontana MD [facility] [place] [address] Essential hypertension, hypertension with unspecified goal Discharge Disposition: Home Social History Tobacco Use [...] Sign Reading Time Taken Comments Blood Pressure 151/98 11/03/2015 10:20 AM EDT Pulse 79 11/03/2015 10:20 AM EDT Temperature 37.2 ??C (99 ??F) 11/03/2015 10: 20 AM EDT recheck on vitals do to patient feeling weak, and fachingumonique Respiratory Rate 18 11/03/2015 10:2 0 AM EDT Oxygen Saturation 97% 11/03/2015 10: 20 AM EDT Inhaled Oxygen Concentration - - Weight 77.1 kg (170 lb) 11/02/2015 5:19 PM EDT Height 152.4 cm (5') 11/02/2015 5:19 PM EDT Body Mass Index 33.2 11/02/2015 5:19 PM EDT documented in this encounter Discharge Summaries * Nathaly Saenz APRN - 11/03/2015 10:00 AM EDT General Surgery Inpatient - Discharge Summary Patient Name: Wendy Sandoval Patient Age: 50 [...] belching, - flatus, hypoactive bowel sounds, LBM 9/13 priorto surgery. Wound: anterior transverse neck incision WESLEY with dermabond; no swelling, erythema, or drainage. [...] Time Provider Department Center 12/09/2015 10:00 AM NADJA, JOSSY L Lab 3L LADI VANESSAVT 12/09/2015 11:00 AM Sherine Fontana MD [facility] Outpatient Services/Studies: Calcium Standing Status: Future [...] Take NSAIDS or Tylenol every 6 hours [id number] for the first 3-5 days following surgery [...] or grocery store, as it is available [id number] and does not require a prescription. The [...] please call the General Surgery nurse at [phone], since this may mean that you need [...] will be mailed to you Please call [phone] to confirm the date and time of [...] with the Surgery nurses. The number is [phone]. - During the night or weekends call the [facility] wrap knitting machine operator at [phone] and ask to speak to the surgery resident personal financial representative for general surgery. Please note: Your surgeon may not be Wrapping Machine Helper, especially during the night or on weekends, so be ready to describe yourself and your surgery when you call. Follow up appointments: Future Appointments Date Time Provider Department Center 12/09/2015 10:00 AM NADJA, JOSSY L Lab 3L LADI HENDRIX 12/09/2015 11:00 AM Sherine Fontana MD [facility] [x] Follow-up appointment with General Surgery has already been scheduled [] A request for a follow-up appointment has been made and you should receive information via phone/mail in the next week. If you do not hear anything, please call the clinic at [phone] to confirm or reschedule. If you need a prior authorization, please call the General Surgery Clinic nurses [phone] for prior authorizations assistance General Instructions None [...] Saenz APRN Surgical Oncology Service Team Pager #[phone] 11/03/2015 2:46 PM documented in this encounter [...] Take NSAIDS or Tylenol every 6 hours [id number] for the first 3-5 days following surgery [...] or grocery store, as it is available [id number] and does not require a prescription. The [...] please call the General Surgery nurse at [phone], since this may mean that you need [...] will be mailed to you Please call [phone] to confirm the date and time of [...] day, it is best to call the 4 General Surgery Clinic to speak with the Surgery nurses. The number is [phone]. - During the night or weekends call the [facility] wrap knitting machine operator at [phone] and ask to speak to the surgery resident personal financial representative for general surgery. Please note: Your surgeon may not be Wrapping Machine Helper, especially during the night or on weekends, so be ready to describe yourself and your surgery when you call. Follow up appointments: Future Appointments Date Time Provider Department [place] 12/09/2015 10:00 AM LAB, THREE L Lab 3L LADI VANESSAVT 12/09/2015 11:00 AM Sherine Fontana MD [facility] [x] Follow-up appointment with General Surgery has already been scheduled [] A request for a follow-up appointment has been made and you should receive information via phone/mail in the next week. If you do not hear anything, please call the clinic at [phone] to confirm or reschedule. If you need a prior authorization, please call the General Surgery Clinic nurses [phone] for prior authorizations assistance documented in this [...] mg DR tablet 1 CAP daily 03/27/2014 acetaminophen (TYLENOL) 325 mg Tablet Take 2 [...] this time, but in agreement to accepting [place] advanced planning booklet and reviewing at home. 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 limitations Home Environment: [...] Coverage: MVP Preferred Pharmacy: [facility] Other: Also uses [facility], but prefers [facility] for any new scripts related to this discharge Primary Care Provider: TRINH COATES MD [phone] Patient/Caregiver Goals of Treatment: Home without services [...] MIRIAM RANDALL RN Pager: covering for pager [phone] * Tawana Arrieta RN - 11/02/2015 4:19 PM EDT Wendy [...] Notes * Plan of Care - Becki Colon RN - 11/03/2015 6:15 AM EDT Problem: General [...] call [place] within reach, Hourly rounding by RN/SUCTION OPERATOR. Close to nurse's station. Bed alarm / [...] Fontana MD - 11/02/2015 12:19 PM EDT [facility] Operative Note Patient Name: Wendy Sandoval : [id number] MR#: [id number] Case Date: 11/02/2015 Surgeon: Surgeon(s) and Role: [...] anesthesia was completed by anesthesiology with the [employer] recurrent laryngeal nerve monitoring system. A crease [...] 01/22/2024 10:30 AM EST Appointment Mammography/[place] [phone] Ladi Mendosa MD [facility] [place] [address] 01/30/2024 11:30 AM EST Office Visit Dermatology at [address] [place] [address] Nilda Luis MD [facility] [address] [place] [address] 02/15/2024 9:30 AM EST [place] [phone] Joanna Watts MD [place], [place] [id number] documented as of this encounter Procedures Procedure Name Priority Date/Time Associated Diagnosis Comments ECG SCAN 11/04/2015 12:00 AM EDT PTH Routine 11/03/2015 7:36 AM EDT CALCIUM Routine 11/03/2015 7:36 AM EDT CARDIAC ENZYMES ([facility]) Routine 11/02/2015 2:00 PM EDT EKG 12-LEAD STAT 11/02/2015 1:47 PM EDT Essential hypertension, hypertension with unspecified goal SPECIMEN TO PATHOLOGY Routine 11/02/2015 12:24 PM EDT SPECIMEN TO PATHOLOGY STAT 11/02/2015 11:59 AM EDT INTRAOPERATIVE PTH ([facility]) STAT 11/02/2015 11:46 AM EDT SPECIMEN TO PATHOLOGY STAT 11/02/2015 11:42 AM EDT SPECIMEN TO PATHOLOGY STAT 11/02/2015 11:13 AM EDT SPECIMEN TO PATHOLOGY STAT 11/02/2015 11:00 AM EDT SPECIMEN TO PATHOLOGY STAT 11/02/2015 10:45 AM EDT INTRAOPERATIVE PTH ([facility]) STAT 11/02/2015 9:50 AM EDT INTRAOPERATIVE PTH ([facility]) STAT 11/02/2015 9:45 AM EDT SPECIMEN TO PATHOLOGY Routine 11/02/2015 9:38 AM EDT INTRAOPERATIVE PTH ([facility]) STAT 11/02/2015 9:35 AM EDT SPECIMEN TO PATHOLOGY Routine 11/02/2015 9:21 AM EDT SPECIMEN TO PATHOLOGY STAT 11/02/2015 9:17 AM EDT SURGICAL PATHOLOGY REPORT Routine 11/02/2015 9:16 AM EDT INTRAOPERATIVE PTH ([facility]) STAT 11/02/2015 9:12 AM EDT INTRAOPERATIVE PTH ([facility]) STAT 11/02/2015 8:59 AM EDT THYMECTOMY, TRANSCERVICAL APPROACH (WRVU 17.16) 11/02/2015 7:39 AM EDT HYPERPARATHYROIDISM FACIAL NERVE MONITORING, SETUP LARYNGEAL (WRVU 1.57) 11/02/2015 7:39 AM EDT HYPERPARATHYROIDISM PARATHYROIDECTOMY OR EXPLORATION OF PARATHYROID(S) (WRVU 15.6) 11/02/2015 7:39 AM EDT HYPERPARATHYROIDISM documented in this encounter Results * Calcium (12/09/2015 10:20 AM EDT) Calcium 9.3 8.5 - 10.5 mg/dL [facility] Blood specimen (specimen) 12/09/2015 10:20 AM EDT 12/09/2015 10:25 AM EDT Narrative Resulting Agency Comment Spec In Lab Sherine Fontana MD CHEMISTRY ORDERAB LES Performing Organization Address [facility]/ZIP Co de Phone Number [facility] [place] [place] [address] * SCAN DOC: ECG (11/04/2015 12:00 AM EDT) Scanning Provider MEDIA MGR SCAN EXT O RDR/RSLT * Calcium (11/03/2015 7:36 AM EDT) Calcium 9.4 8.5 - 10.5 mg/dL [facility] Blood specimen (specimen) 11/03/2015 7:36 AM EDT 11/03/2015 7:44 AM EDT Narrative Resulting Agency Comment Spec In Lab Sherine Fontana MD CHEMISTRY ORDERAB LES [facility] [place] [address] * (ABNORMAL) PTH (11/03/2015 7:36 AM EDT) PTH 7(L) 15 - 65 pg/mL [facility] Blood specimen (specimen) 11/03/2015 7:36 AM EDT 11/03/2015 7:44 AM EDT Narrative Resulting Agency Comment Spec In Lab Sherine Fontana MD CHEMISTRY ORDERAB LES Performing Organization Address [facility] Co de Phone Number [facility] [place] [place] [address] * Cardiac Enzymes (11/02/2015 2:00 PM EDT) [facility] Troponin-T <0.03 <=0.03 ng/mL [facility] Comment: 0.03 ng/mL: Represents the 99th percentile upper reference limit for normals. >0.03 ng/mL: Elevated cardiac troponin T level indicative of myocardial damage. Diagnosis of acute, evolving or recent [place] requires a typical rise and gradual fall [...] consensus document of the Joint Society of Cardiology/[place] College of Cardiology Committee for the redefinition of myocardial infarction. ??Journal of the [place] College of Cardiology 2000; 36: 959-969] CK, Total 130 0 - 160 unit/L [facility] Blood specimen (specimen) 11/02/2015 2:00 PM EDT 11/02/2015 2:02 PM EDT Narrative Resulting Agency Comment Spec In Lab Sherine Fontana MD CHEMISTRY ORDERAB LES Performing Organization Address [facility] Co de Phone Number [facility] [place] [place] [address] * EKG 12 Lead (11/02/2015 1:47 PM EDT) [facility] Ventricular rate 110 BPM MUSE SYSTEM Atrial Rate 110 BPM MUSE SYSTEM P-R Interval 96 ms MUSE SYSTEM QRS Duration 82 ms MUSE SYSTEM Q-T Interval 488 ms MUSE SYSTEM QTC Calculated (Bezet) 660 ms MUSE SYSTEM Calculated R [place] -22 degrees MUSE SYSTEM Calculated T [place] 44 degrees MUSE SYSTEM INTERPRETATION Sinus tachycardia with short [facility] Nonspecific ST and T wave abnormality Abnormal ECG No previous ECGs available Confirmed by MD Alex, Denny ([id number]) on 11/02/2015 4:12:47 PM MUSE SYSTEM 11/02/2015 1:47 PM EDT 11/02/2015 4:12 PM EDT Maximilian Alberto MD ECG ORDERABLES Performing Organization Address [facility] Co de Phone Number MUSE SYSTEM * Specimen to Pathology (surgical or derm) (11/02/2015 12:24 PM EDT) AP Specimen 11/02/2015 12:2 4 PM EDT 11/02/2015 12:24 PM EDT Narrative [facility] - 11/02/2015 12:24 PM EDT Specimen requisition ordered. ??Separate Pathology report to follow Sherine Fontana MD PATHOLOGY/CYTOLOG Y ORDERABLES Performing Organization Address [facility] Co de Phone Number [facility] [place] [address] * Specimen to Pathology (surgical or derm) (11/02/2015 11:59 AM EDT) AP Specimen 11/02/2015 11:5 9 AM EDT 11/02/2015 11:59 AM EDT Narrative [facility] - 11/02/2015 11:59 AM EDT Specimen requisition ordered. ??Separate Pathology report to follow Sherine Fontana MD PATHOLOGY/CYTOLOG Y ORDERABLES Performing Organization Address [facility] Co de Phone Number [facility] [place] [address] * (ABNORMAL) Intraoperative PTH (11/02/2015 11:46 AM EDT) Intraoper PTH 14(L) 15 - 65 pg/mL [facility] Comment: Called by: harry, Read back by: kevin barbosa, Date/Time:11/02/15 12:34. A 50 % decrease in venous iPTH levels at 10 min post adenoma excision is expected if all the hypersecreting parathyroid tissue has been removed (David GL et al. Surgery 1993:114; 9996-1256) Blood specimen (specimen) 11/02/2015 11:46 AM EDT 11/02/2015 11:52 AM EDT Narrative Resulting Agency Comment Spec In Lab Sherine Fontana MD CHEMISTRY ORDERAB LES Performing Organization Address [facility] [place] [address] * Specimen to Pathology (surgical or derm) (11/02/2015 11:42 AM EDT) AP Specimen 11/02/2015 11:4 2 AM EDT 11/02/2015 11:42 AM EDT Narrative [facility] - 11/02/2015 11:42 AM EDT Specimen requisition ordered. ??Separate Pathology report to follow Sherine Fontana MD PATHOLOGY/CYTOLOG Y ORDERABLES Performing Organization Address [facility] [place] [address] * Specimen to Pathology (surgical or derm) (11/02/2015 11:13 AM EDT) AP Specimen 11/02/2015 11:1 3 AM EDT 11/02/2015 11:13 AM EDT Narrative [facility] - 11/02/2015 11:13 AM EDT Specimen requisition ordered. ??Separate Pathology report to follow Sherine Fontana MD PATHOLOGY/CYTOLOG Y ORDERABLES Performing Organization Address [facility] [place] [address] * Specimen to Pathology (surgical or derm) (11/02/2015 11:00 AM EDT) AP Specimen 11/02/2015 11:0 0 AM EDT 11/02/2015 11:00 AM EDT Narrative [facility] - 11/02/2015 11:00 AM EDT Specimen requisition ordered. ??Separate Pathology report to follow Sherine Fontana MD PATHOLOGY/CYTOLOG Y ORDERABLES Performing Organization Address [facility]/ZIP Co de Phone Number [facility] [place] [place] [address] * Specimen to Pathology (surgical or derm) (11/02/2015 10:45 AM EDT) AP Specimen 11/02/2015 10:4 5 AM EDT 11/02/2015 10:45 AM EDT Narrative [facility] - 11/02/2015 10:45 AM EDT Specimen requisition ordered. ??Separate Pathology report to follow Sherine Fontana MD PATHOLOGY/CYTOLOG Y ORDERABLES Performing Organization Address [facility] [place] [address] * (ABNORMAL) Intraoperative PTH (11/02/2015 9:50 AM EDT) Intraoper PTH 66(H) 15 - 65 pg/mL [facility] Comment: Called by: RENETTA, Read back by: Kevin, Date/Time:11/02/15 10:24 15-min post excision. A 50 % decrease in venous iPTH levels at 10 min post adenoma excision is expected if all the hypersecreting parathyroid tissue has been removed (David GL et al. Surgery 1993:114; [id number]) Blood specimen (specimen) 11/02/2015 9:50 AM EDT 11/02/2015 9:55 AM EDT Narrative Resulting Agency Comment Spec In Lab Sherine Fontana MD CHEMISTRY ORDERAB LES Performing Organization Address [facility] Co de Phone Number [facility] [place] [address] * (ABNORMAL) Intraoperative PTH (11/02/2015 9:45 AM EDT) Intraoper PTH 79(H) 15 - 65 pg/mL [facility] Comment: Called by: SV, Read back by: Edith, Date/Time:11/02/15 10:18 *10-min post-excision. A 50 % decrease in venous iPTH levels at 10 min post adenoma excision is expected if all the hypersecreting parathyroid tissue has been removed (David BHAT et al. Surgery 1993:114; 6953-0214) Blood specimen (specimen) 11/02/2015 9:45 AM EDT 11/02/2015 9:49 AM EDT Narrative Resulting Agency Comment Spec In Lab Sherine Fontana MD CHEMISTRY ORDERAB LES Performing Organization Address [facility]/ZIP Co de Phone Number [facility] [place] [place] [address] * Specimen to Pathology (surgical or derm) (11/02/2015 9:38 AM EDT) AP Specimen 11/02/2015 9:38 AM EDT 11/02/2015 9:38 AM EDT Narrative [facility] - 11/02/2015 9:38 AM EDT Specimen requisition ordered. ??Separate Pathology report to follow Sherine Fontana MD PATHOLOGY/CYTOLOG Y ORDERABLES Performing Organization Address City/[facility]/[place] [address] * (ABNORMAL) Intraoperative PTH (11/02/2015 9:35 AM EDT) Intraoper PTH 255(H) 15 - 65 pg/mL [facility] Comment: Called by: RENETTA, Read back by: Edith, Date/Time:11/02/15 10:10. *repeat pre-excision A 50 % decrease in venous iPTH levels at 10 min post adenoma excision is expected if all the hypersecreting parathyroid tissue has been removed (David BHAT et al. Surgery 1993:114; 7400-4865) Blood specimen (specimen) 11/02/2015 9:35 AM EDT 11/02/2015 9:39 AM EDT Narrative Resulting Agency Comment Spec In Lab Sherine Fontana MD CHEMISTRY ORDERAB LES Performing Organization Address [facility] [place] [address] * Specimen to Pathology (surgical or derm) (11/02/2015 9:21 AM EDT) AP Specimen 11/02/2015 9:21 AM EDT 11/02/2015 9:21 AM EDT Narrative [facility] - 11/02/2015 9:21 AM EDT Specimen requisition ordered. ??Separate Pathology report to follow Sherine Fontana MD PATHOLOGY/CYTOLOG Y ORDERABLES Performing Organization Address [facility] Co de Phone Number [facility] [place] [address] * Specimen to Pathology (surgical or derm) (11/02/2015 9:17 AM EDT) AP Specimen 11/02/2015 9:17 AM EDT 11/02/2015 9:17 AM EDT Narrative [facility] - 11/02/2015 9:17 AM EDT Specimen requisition ordered. ??Separate Pathology report to follow Sherine Fontana MD PATHOLOGY/CYTOLOG Y ORDERABLES Performing Organization Address [facility] Co de Phone Number [facility] [place] [address] * Surgical Pathology Report (11/02/2015 9:16 AM EDT) Surgical Pathology Report [id number] ? Location: [facility]; [facility]; B The signing pathologist has (i) examined [...] section: No parathyroid seen Electronically signed by: ??Junie RENEE, Krishna German Verified: ??11/12/2015 ?Pathologist This intraoperative consultation should [...] 0.1 cm, weighing 0.01 grams. Tissue Description: [place] tissue, frozen section remnant. Sections/Processi ng: Specimen [...] 0.1 cm, weighing 0.04 grams. Tissue Description: [place] tissue fragment, frozen section remnants. Sections/Processi ng: [...] differentially inked; (4)one intact node.(R4) ??rm _ [facility] 11/02/2015 9:16 AM EDT Sherine Fontana MD PATHOLOGY/CYTOLOG Y ORDERABLES Performing Organization Address [facility] Co de Phone Number [facility] [place] [address] * (ABNORMAL) Intraoperative PTH (11/02/2015 9:12 AM EDT) Intraoper PTH 380(H) 15 - 65 pg/mL [facility] Comment: Called by: RENETTA, Read back by: Kevin Bocanegra, Date/Time:11/02/15 09:47. Pre-Excision #1 A 50 % decrease in venous iPTH levels at 10 min post adenoma excision is expected if all the hypersecreting parathyroid tissue has been removed (David GL et al. Surgery 1993:114; 0082-1329) Corrected from 380 pg/mL [HI] on 11/02/15 09:56 by Tahira Munguia Blood specimen (specimen) 11/02/2015 9:12 AM EDT 11/02/2015 9:16 AM EDT Narrative Resulting Agency Comment Spec In Lab Sherine Fontana MD CHEMISTRY ORDERAB LES Performing Organization Address [facility] Co de Phone Number [facility] [place] [address] * (ABNORMAL) Intraoperative PTH (11/02/2015 8:59 AM EDT) Intraoper PTH 284(H) 15 - 65 pg/mL [facility] Comment: Called by: RENETTA, Read back by: Kevin Webb, Date/Time:11/02/15 09:32. *Baseline A 50 % decrease in venous iPTH levels at 10 min post adenoma excision is expected if all the hypersecreting parathyroid tissue has been removed (David BHAT et al. Surgery 1993:114; 6587-0171) Blood specimen (specimen) 11/02/2015 8:59 AM EDT 11/02/2015 9:02 AM EDT Narrative Resulting Agency Comment Spec In Lab Sherine Fontana MD CHEMISTRY ORDERAB LES [facility] [place] [address] documented in this encounter Visit Diagnoses Diagnosis Hyperparathyroidism- Primary Hyperparathyroidism, unspecified Essential hypertension, hypertension with unspecified goal documented in this encounter Admitting Diagnoses Diagnosis Hyperparathyroidism [...] Given 11/02/2015 10:19 PM EDT 650 mg calcium carbonate (TUMS) chewable tablet 1,000 [...] Discontinued, Routine 2220 (Given - Provider: Becki Colon, RN) 0845 (Given - Provider: Mariel Dill [...] Discontinued, Routine 1714 (Given - Provider: Tawana Arrieta, JENNYFER) 0844 (Given - Provider: Mariel Dill RN) furosemide (LASIX) tablet 20 mg 20 mg, Oral, DAILY, First dose on Sun11/02/15 at 1730, Until Discontinued, Routine 1730 (Not Given - Provider: Tawana Arrieta, JENNYFER - Reason: Patient/family refused) 0844 (Given - Provider: Mariel Dill RN) ketorolac (TORADOL) injection 15 mg (CANCELED) 15 mg, Intravenous, EVERY 6 HOURS, 20 doses, First dose on Sun11/02/15 at 1400, Last dose on Sun11/07/15 at 0800, Routine 1344 (Given - Provider: Lio Le RN) norethindrone (AYGESTIN) tablet 5 mg 5 [...] administration, Routine 2219 (Given - Provider: Becki Colon RN) 0844 (Given - Provider: Mariel Dill RN) simvastatin (ZOCOR) tablet 10 mg 10 mg, Oral, DAILY WITH DINNER, First dose on Sun11/02/15 at 1700, Until Discontinued 2220 (Given - Provider: Becki Colon, JENNYFER) valsartan (DIOVAN) tablet 160 mg 160 mg, Oral, DAILY, First dose on Sun11/02/15 at 1730, Until Discontinued, Routine 2100 (Hold - Provider: Becki Colon RN - Reason: Medication not available - Comment: [...] hours., Routine 1435 (Given - Provider: Lio Le RN)1751 (Given - Provider: Tawana Arrieta, JENNYFER)2219 (Given - Provider: Becki Colon, RN) 0355 (Given - Provider: Mariposa Wynne, RN)1311 (Given - Provider: Mariel Dill RN) [...] Lio Le RN)1325 (Given - Provider: Lio Le, RN) labetalol (NORMODYNE,TRANDATE) injection 10 mg 10 mg, Intravenous, EVERY 2 HOURS PRN, Starting on Sun11/02/15 at 1404, Until Sun11/03/15 at 1825, High Blood Pressure, Routine 1409 (Given - Provider: Lio Le, JENNYFER) meTOPROLOL (LOPRESSOR) injection 5 mg 5 mg, [...] first. documented in this encounter Care Teams Nuclear Station Operator Relationship Specialty Start Date End Date Trinh Coates MD [address] [place] [address] PCP - General 01/11/10 documented as of this encounter
--- OUTSIDE RECORDS SUMMARY | 2023-09-07 11:36 | XMS_ITS | Encounter Summary ---
Author Organization [facility] [place] [address] Care Team Providers Care Retail Product Demo Specialist Name Role Phone Trinh Coates MD Primary Care Provider [phone] Reason for Visit * Consultation (Routine) - Closed Specialty Diagnoses / Procedures Referred By Diamante marin Referred To Contact General Surgery Diagnoses Hyperparathyroidism Procedures Consult, Test & Treat Trinh Coates MD [facility] [address] [place] [address] [facility] Gen Surgery [address] [place] [address] Referral ID Status Reason Start Date Expiration Date V isits Requested Visits Authorized [id number] Closed Consult, Test & Treat Connection [facility] 09/24/2015 09/23/2016 1 1 Encounter Details Date Type Department Care Team (Late st Contact Info) Description 10/15/2015 3:15 PM EDT Office [place] [address] Valentina Lucas MD [facility] [place] [address] Hyperparathyroidism, primary Social History Tobacco Use Types Packs/Day Years Used Date Smoking Tobacco: Former Sex and Gender Information Value Date Recorded Sex Assigned at Not on file Gender Identity Not on file Sexual Orientation Not on file documented as of this encounter Last Filed Vital Signs Vital Sign Reading Time Taken Comments Blood Pressure 148/83 10/15/2015 3:02 PM EDT Pulse 66 10/15/2015 3:02 PM EDT Temperature - - Respiratory Rate 18 10/15/2015 3:02 PM EDT Oxygen Saturation 98% 10/15/2015 3:02 PM EDT Inhaled Oxygen Concentration - - Weight 77.1 kg (170 lb) 10/15/2015 3:02 PM EDT Height 152.4 cm (5') 10/15/2015 3:02 PM EDT Body Mass Index 33.2 10/15/2015 3:02 PM EDT documented in this encounter Progress Notes * Valentina Lucas MD - 10/15/2015 3:15 PM EDT Images from the original note were not included. Endocrine Surgery Initial Consultation HPI: Ms. Wendy Sandoval is a very pleasant [...] Apparently, when she was 16, she had anankle fracture without an inciting trauma, but there have been no fractures since. She does complain of many symptoms of hyperparathyroidism including mood depression, nocturia x 2-3, bone pain (mainly in the thighs and shins), abdominal cramps/constipation, fatigue and malaise. There is no historyof previous parathyroid exploration or thyroid surgery. Her father had a parathyroidectomy for hypercalcemia, but she does not know any details and he is now . No other family history of endoc rinopathies or endocrine malignancies. She presents today for consideration of surgical management of her hyperparathyroidism. Recent labs: Serum calcium 11.3 mg/dL PTH 77 pg/mL Vitamin D 52 ng/mL Ionized calcium N/A mmol/L Phosphorus N/A mg/dL 24 hr urine calcium N/A mg/24hr Recent studies: Recent DEXA scan: not done Sestamibi scan: possible right lower parathyroid abnormality Cervical ultrasound has not yet been performed. Past Medical History Diagnosis Date ??? Fibrocystic breast determined by biopsy ??? Hyperlipidemia ??? Hypertension ??? Impaired fasting glucose ??? Obstructive sleep apnea on CPAP ??? Proteinuria Past Surgical History Procedure Laterality Date ??? Breast biopsy Right 11/01 ??? Umbilical hernia repair ??? Hand surgery Right ??? Shoulder surgery Left ??? section x 2 Current Outpatient Prescriptions on File Prior to Visit Medication Sig Dispense Refill ??? ferrous gluconate 324 mg (37.5 mg iron) Tablet Take 324 mg by mouth daily. ??? cholecalciferol, Vitamin D3, 2,000 unit Capsule Take by mouth daily. ??? clobetasol (TEMOVATE) 0.05 % Cream Apply to affected areas on knees, elbows and hands twice daily for two week cycles as needed. 60 g 3 ??? terbinafine (LAMISIL) 250 mg tablet Take 250 mg by mouth daily. ??? fluoxetine (PROZAC) 40 mg capsule daily. ??? KLOR-CON M20 20 mEq extended release tablet 2 times daily. ??? simvastatin (ZOCOR) 10 mg tablet nightly. ??? triamcinolone (ARISTOCORT) 0.5 % cream No current facility-administered medications on file prior to visit. Allergies as of 10/15/2015 - Review Complete 10/15/2015 Allergen Reaction Noted ??? Pcn [penicillins] 03/15/2013 ??? Zoloft [sertraline] 11/12/2014 Family History: Father had a parathyroidectomy. He is now of an aneurysm. Mother living, has a history of uterine fibroids and breast cancer. Several members of the family have hypertension.A maternal aunt and a cousin have been treated for breast cancer. Another cousin has stomach cancer. No family history of thyroid cancer. No pituitary, pancreas or adrenal tumors. Social History: , two children ages 23 and 21. Nonsmoker (quit before her children were born). Occasional EtOH. 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 No professional public speaking or singing Review of Systems: Negative/Normal Positive/Abnormal Energy Level [] Fatigue, malaise Fever [x] Appetite [x] Weight Loss/Gain [x] ENT [x] Cardiovascular [x] Respiratory [x] Gastrointestinal [] cramping and constipation Bleeding [x] Bruising [x] Genitourinary [] Nocturnal frequency Musculoskeletal [] Some aching in bones Endocrine [x] Neuro [x] Psych [] Decreased concentration and mood Encounter Vitals: BP 148/83 Pulse 66 Resp 18 Ht 152.4 cm (5') Wt 77.1 kg (170 lb) SpO2 98% BMI 33.2 kg/m2 Physical Exam: System Normal Abnl Findings General [x] [] Well nourished, appears well Skin [x] [] Warm and dry Neck [x] [] No thyromegaly, no masses, trachea midline Lymph Nodes [x] [] No cervical lymphadenopathy Lungs [x] [] Normal respiratory effort, clear to auscultation bilaterally Cardiovascular [x] [] Regular rate and rhythm, no murmurs Extremities [x] [] Warm, no edema, full ROM Neuro [x] [] Motor intact, voice normal Psych [x] [] Normal mood and affect; responds to questions appropriately Procedures performed this visit: Thyroid, Parathyroid and Cervical Ultrasound I performed a thyroid, parathyroid and cervical ultrasound at the time of the clinic visit today using the 12 mHz linear ultrasound transducer. The thyroid, parathyroid and central and bilateral lateral neck lymph node basins were evaluated. The findings include: Thyroid Isthmus: Thickness: 0.19 cm Nodules: None Right lobe: Lobe: 4.1 x 1.28 x 1.81 cm Nodules: None Left lobe: Lobe: 3.72 x 1.52 x 1.19 cm Nodules: None In the right lower parathyroid location is a hypoechoic nodule measuring 1.77 x 0.83 x 0.58 Cervical lymph nodes Central neck: Normal ultrasonographic appearing lymph nodes Right lateral neck: Normal ultrasonographic appearing lymph nodes Left lateral neck: Normal ultrasonographic appearing lymph nodes Sestamibi Scan (10/15/15): There is a focus of increased tracer activity that is retained in the delayed image corresponding to a nodule located inferior and posterior to the right lobe of the thyroidgland. This nodule is not visualized in the thyroid scan. Consistent with right lower parathyroid adenoma Assessment and Plan: Ms. Wendy Sandoval is a 50 y.o. year old female with symptomatic primary hyperparathyroidism with localization studies including ultrasound and sestamibi scan indicating a right lower parathyroid abnormality. We discussed the typical work up and management of primary hyperparathyroidism. I therefore recommended minimally invasive parathyroidectomy with intraoperative parathyroid hormone monitoring. If IOPTH levels do not decrease appropriately, we will proceed with a bilateral exploration. Idiscussed the risks of parathyroidectomy with the patient including, but not limited to, nerve injury resulting in voice changes or hoarseness of voice, low calcium related to removal of parathyroid tissue, bleeding which may require reoperation, infection and complications related to anesthesia. She confirmed understanding of these risks and consent was obtained today. Surgery will be scheduled for the soonest mutually convenient date. She will be admitted overnight because of her sleep apnea.She will bring her CPAP machine. [facility] Data Patient Characteristics Body mass index is 33.2 kg/(m^2). Patient Ethnicity & Race Ethnic Group Patient Race Not nor White Prior neck irradiation: no Prior anterior neck surgery: no Pre-operative laryngoscopy: no Anti-coagulation meds (aspirin, warfarin, clopidogrel, heparin, oral thrombin or factor Xa inhibitors): no Disease Characteristics Primary Pre-Operative Diagnosis: sporadic primary hyperparathyroidism Persistent/Recurrent Hyperparathyroidism: No Calcium: high 24-hour Urine calcium: not examined GFR decreased: No Ionized calcium: not examined PTH:high [id number] D: normal Subjective Symptoms: yes Objective Symptoms: yes Imaging Studies: Localization studies performed: yes Localization study type: ultrasound, sestamibi Ultrasound result: Localized single gland with high confidence Sestamibi result: Localized single gland with high confidence documented in this encounter H&P Notes * Valentina Lucas MD - 10/15/2015 3:15 PM EDT Please see my office note dated 10/15/15 documented in this encounter Plan of Treatment Upcoming Encounters Date Type Department Care Team (Late st Contact Info) Description 01/22/2024 10:30 AM EST Appointment Mammography/[place] [address] Ladi Mendosa MD [facility] [address] HEMATOLOGY/[place] [address] 01/30/2024 11:30 AM EST Office Visit Dermatology at [facility] [address] [place] [phone] Nilda Luis MD [facility] [address] [address] 02/15/2024 9:30 AM [place] [address] [place] [address] documented as of this encounter Visit Diagnoses Diagnosis Hyperparathyroidism, primary Primary hyperparathyroidism documented in this encounter Care Teams Retail Product Demo Specialist Relationship Specialty Start Date End Date Trinh Coates MD [facility] [address] [facility] [address] [place] [address] PCP - General 01/11/10 documented as of this encounter
--- OUTSIDE RECORDS SUMMARY | 2023-09-07 11:36 | XMS_ITS | Encounter Summary ---
Author Organization [facility] [place] [address] Care Team Providers Care Editor Dictionary Name Role Phone Trinh Coates MD Primary Care Provider [phone] Reason for Visit * Reason Onset Date Comments Medication Refill 04/07/2014 Encounter Details Date Type Department Care Team (Late st Contact Info) Description 04/07/2014 Refill Dermatology at [address] [phone] Eliseo Sorensen III, MD [facility] [place] [address] Psoriasis Social History Tobacco Use Types Packs/Day Years Used Date Smoking Tobacco: Former Sex and Gender Information Value Date Recorded Sex Assigned at Not on file Gender Identity Not on file Sexual Orientation Not on file documented as of this encounter Miscellaneous Notes * Telephone Encounter - Eliseo Sorensen III, MD - 04/07/2014 4:13 PM EST Please have the patient make an appointment for further refills. documented in this encounter Plan of Treatment Upcoming Encounters Date Type Department Care Team (Late st Contact Info) Description 01/22/2024 10:30 AM EST Appointment Mammography[place] [address] Ladi Mendosa MD [facility] HEMATOLOGY/[place] [address] 01/30/2024 11:30 AM EST Office Visit Dermatology at [facility] [address] [place] [phone] Nilda Luis MD [facility] [address] [place] [address] 02/15/2024 9:30 AM [place] [phone] [place] [address] documented as of this encounter Visit Diagnoses Diagnosis Psoriasis Other psoriasis documented in this encounter Care Teams Editor Dictionary Relationship Specialty Start Date End Date Trinh Coates MD [facility] [address] [place] [address] PCP - General 01/11/10 documented as of this encounter
--- OUTSIDE RECORDS SUMMARY | 2023-09-07 11:36 | XMS_ITS | Encounter Summary ---
Author Organization [facility] [place] [address] Care Team Providers Care Carpenter Cradle And Dolly Name Role Phone Trinh Coates MD Primary Care Provider [phone] Reason for Visit * Reason Comments Procedure Encounter Details Date Type Department Care Team (Latest Contact Info) Description 10/10/2013 9:30 AM EDT Procedure visit Dermatology at [facility] [address] [place] [address] Colette Hudson MD [facility] [address] [place] [address] Atypical nevus (Primary Dx) Discharge Disposition: Home Social History Tobacco Use Types Packs/Day Years Used Date Smoking Tobacco: Former Sex and Gender Information Value Date Recorded Sex Assigned at Not on file Gender Identity Not on file Sexual Orientation Not on file documented as of this encounter Last Filed Vital Signs Vital Sign Reading Time Taken Comments Blood Pressure 151/86 10/10/2013 10:06 AM EDT Pulse 65 10/10/2013 10:06 AM EDT Temperature - - Respiratory Rate - - Oxygen Saturation - - Inhaled Oxygen Concentration - - Weight - - Height - - Body Mass Index - - documented in this encounter Patient Instructions * Patient Instructions* Jimbo De La Rosa LPN - 10/10/2013 10:08 AM EDT Section of Dermatology Treatment and Wound Care Instructions Wound Care Instructions: POST OPERATIVE INSTRUCTIONS Wash your hands before changing the dressing. The dressing on the side should remain in place and dry until Sunday, then dressing should then be removed gently. After removing the dressing, daily wound care should be performed as follows: ?? Clean the wound with warm water and pat dry gently. ?? Apply Vaseline or Aquaphor. ?? Cover the wound with a new dressing such as Telfa and tape or a Band-Aid. ?? Follow this regimen every day until your suture removal. For discomfort, you may take Tylenol. Avoid aspirin and ibuprofen, as they increase your risk of bleeding. If bleeding should occur, pressure should be applied constantly for 15 minutes on the dressing withthe help of a towel, wash cloth, or piece of gauze. If bleeding continues, repeat pressure for another 15 minutes. If this does not stop the bleeding, please call to clinic or go to an Emergency Room. A small amount of yellow drainage is part of normal healing, the wound is not considered healed until the drainage stops. It may take up to 3 - 4 weeks depending upon the area treated. Signs of infection include increasing tenderness or pain, drainage or redness that becomes hard or swollen surrounding the wound. If you notice any of these symptoms, please contact the clinic. It is important that you avoid strenuous and/or vigorous activities, heavy lifting (more than 5-10 lbs) and bending for a period of 2 weeks. The sutures should be removed in 7 days. If you have any questions, please contact the clinic during the day at . You may also contact your nurse: JIMBO DE LA ROSA LPN during the day at . In the case of urgency after 5PM and on weekends, please call the hospital number and ask for the Animal Feeder irrigation pump installer. Doctor Colette Hudson MD Nurse JIMBO DE LA ROSA LPN documented in this encounter Progress Notes * Eliseo Sorensen III, MD - 10/10/2013 5:48 PM EDT I was the supervising physician working with dermatology resident Dr. Hudson in the dermatology clinic during this patient visit. The level of Resident supervision for this patient visit was indirect supervision with direct supervision immediately available. (definition: [facility] Policy Statement on Graduate Medical Education, Supervision of Graduate Medical Trainees) I was immediately available to Dr. Hudson for questions and discussion regarding this visit. I have reviewed her encounter note details and level of service. ELISEO SORENSEN III, MD Staff Physician * Colette Hudson MD - 10/10/2013 10:42 AM EDT Dermatology Resident Surgical Procedure Note Surgeon: COLETTE HUDSON MD Attending Physician: Eliseo Sorensen MD Hand Endband Cutter: Jimbo De La Rosa LPN Ms. Sandoval is a 48 y.o. year old female, referred by Dr. Gaines for the excision of an atypical melanocytic proliferation on the left neck . No changes in health since last visit. Answers to Pre-Op Questions: Allergy to lidocaine/epinephrine/iodine? Denies Pacemaker/Defibrillator? Denies Artificial Joints or Heart Valves? Denies Blood Thinners? Denies Need for antibiotics prior to procedures? Denies Suspected Diagnosis: Previous Biopsy Results: ---Pathologic Diagnosis--- Skin, left neck, punch biopsy: Atypical lentiginous junctional melanocytic proliferation, extending to the peripheral margin, and associated lentiginous compound nevus,---Comment--- There is a proliferation of single and nested junctional melanocytes which is concerning because it is on actinically damaged skin. We do not see enough proliferation for the diagnosis of melanoma in situ, and there is a central nevus component. However, because the nature of the proliferation is not certain, re-excision is recommended to fully remove the lesion and prevent recurrence. Procedure: A. Atypical melanocytic proliferation. Excision of benign lesion, original lesion size:0.6cm Description of Lesion: pink scar with pigment at superior edge Margins: 0.3 cm Total size: 0.9 cm Intermediate repair, length 3.0 cm Site: left neck Suture: 4-0 Monocryl deep, 4-0 prolene superficial Anesthesia used: Lidocaine with epinephrine Filed Vitals: 10/10/13 1006 BP: 151/86 Pulse: 65 Discussed treatment, expectations, need for follow-up. Informed consent obtained. See CIS for current medications, drug sensitivities and vital signs. Sterile skin prep performed. Local anesthesia: buffered 1% lidocaine with 1/100,000 epinephrine. A time-out was conducted just before the start of the procedure to verify the correct patient and procedure, procedure location, and all relevant critical information. The excision was designed with clinically clear-appearing margins of at least 0.3 cm in order to remove the lesion. The lesion was excised down to the level of fat. An intermediate closure was required in order to close potential space and to reduce the risk of dehiscence. Hemostasis was achieved. A layered closure was performed. Multiple buried absorbable sutures were placed to reappose deep fat. The epidermis and dermis were reapposed using monofilament suture. There were no complications; the patient tolerated the procedure well. Specimen to Pathology. The wound was dressed. Post-procedure expectations (including discomfort management), wound care and activity restrictions were reviewed. Patient will be notified by letter or phone call of pathology results. Suture removal:7 days. Patient prefers to have this done closer to home. Will call with questions/concerns. RTC as scheduled with Primary Animal Feeder, Dr. Gaines. COLETTE HUDSON MD Resident in Dermatology Patient discussed with Supervising Animal Feeder: Eliseo Sorensen MD Section of Dermatology [facility] Level of Resident Supervision: Indirect supervision with direct supervision immediately available (the supervising physician is physically within the confines of the site of patient care, and is immediately available to provide Direct Supervision) documented in this encounter Plan of Treatment Upcoming Encounters Date Type Department Care Team (Late st Contact Info) Description 01/22/2024 10:30 AM EST Appointment Mammography/[place] [address] Ladi Mendosa MD [facility] HEMATOLOGY/[place] [address] 01/30/2024 11:30 AM EST Office Visit Dermatology at [facility] [address] [place] [address] Nilda Luis MD [facility] [address] [place] [address] 02/15/2024 9:30 AM EST [place] [phone] [place] [address] documented as of this encounter Procedures Procedure Name Priority Date/Time Associated Diagnosis Comments SPECIMEN TO PATHOLOGY (NON-OR) Routine 10/10/2013 11:29 AM EDT Atypical nevus SURGICAL PATHOLOGY REPORT Routine 10/10/2013 11:29 AM EDT documented in this encounter Results * Surgical Pathology Report (10/10/2013 11:29 AM EDT) Surgical Pathology Report ? [facility] ? Provider: ?? COLETTE HUDSON ? Pt. Name: ?? LORI WENDY Lanier ? Acc #: ?[id number] ? Pt. ? Col Date: ?? 10/10/2013 ? /Sex: ?1965,(48 years),Female ? Rec Date: ?? 10/10/2013 ? LOC: ?[facility] ? SURGICAL PATHOLOGY ? ---Pathologic Diagnosis--- ? Skin, left neck, excision: ? -NO RESIDUAL of the previously diagnosed atypical lentiginous junctional ? melanocytic proliferation ? -REPARATIVE CHANGES CONSISTENT WITH PREVIOUS OPERATIVE SITE ? 10/13/13 ? ANW ? 10/13/13 Verified by: ? Mya RENEE, Tom Avila ? Dermatopathologis t, Bone & Soft Tissue ? Pathologist ? (Electronic Signature) ? The attending pathologist whose signature appears on this report has ? reviewed all diagnostic slides and has edited the gross and/or ? microscopic portion of the report in rendering the final pathologic ? diagnosis. ? ---Gross Description--- ? A - Labeled/Fixative: Left neck, formalin. ? Quantity/Size: Single, 2.7 x 1.1 x 0.3 cm. ? Tissue Description: An ellipse of caputo skin. ? Sections/Processi ng: The specimen is inked and serially sectioned. ? The ends are submitted in (1); the remainder in (2-4). (T4) ??sns ? ---Clinical Information--- ? Specimen Submitted: ? A - Skin, left neck, excision (1) ? Clinical History: ? 6 mm pink scar pigmented at superior edge. ??See previous [id number]. ? Clinical Diagnosis: ? Atypical nevus [facility] 10/10/2013 11:2 9 AM EDT Colette Hudson MD PATHOLOGY/CYTOLOGY O RDERABLES Performing Organization Address [facility] Co de Phone Number [facility] * Specimen to Pathology (NON-OR) (10/10/2013 11:29 AM EDT) AP Specimen 10/10/2013 11:2 9 AM EDT 10/10/2013 11:29 AM EDT Narrative [facility] 10/10/2013 11:29 AM EDT Specimen requisition ordered. ??Separate Pathology report to follow Eliseo Sorensen III, MD PATHOLOGY/CYTOL OGY ORDERABLES Performing Organization Address [facility] Co de Phone Number [facility] documented in this encounter Visit Diagnoses Diagnosis Atypical nevus- Primary Benign neoplasm of skin, site unspecified documented in this encounter Care Teams Carpenter Cradle And Dolly Relationship Specialty Start Date End Date Trinh Coates MD [address] [place] [address] PCP - General 01/11/10 documented as of this encounter
--- OUTSIDE RECORDS SUMMARY | 2023-09-07 11:36 | XMS_ITS | Encounter Summary ---
Author Organization [facility] [place] [address] Care Team Providers Care Tire Changer Name Role Phone Trinh Coates MD Primary Care Provider [phone] Encounter Details Date Type Department Care Team (Latest Contact Info) Description 11/07/2012 9:56 AM EDT - 11/07/2012 11:59 PM EDT Hospital [place] [phone] Abnormal findings on diagnostic imaging of breast Social History Tobacco Use Types [...] 240 mg Tablet SR daily. 10/31/2012 10/15/2015 MARISA, Shannon, 0.3-30 mg-mcg per tablet 10/31/2012 10/08/2013 KLOR-CON M20 20 mEq extended release tablet 2 times daily. 10/31/2012 simvastatin (ZOCOR) 10 mg tablet nightly. 10/31/2012 03/29/2017 triamcinolone (ARISTOCORT) 0.5 % cream 10/24/201209/2017 Valsartan-Hydrochlorothia zide 160-25 mg Tab daily. 10/31/2012 6 documented as of this encounter Progress Notes * Vicente Sanchez MD - 11/06/2012 7:18 AM EDT Procedure date: scheduled for 11/07/12 Procedure type: right Breast stereotactic biopsy Special Instructions: none Allergies: Review of patient's allergies indicates not on file. Medications: No current outpatient prescriptions on file. Anticoagulation status: none Imaging reviewed and procedural plan approved by Dr. VICENTE SANCHEZ MD documented in this encounter Plan of Treatment Upcoming Encounters Date Type Department Care Team (Late st Contact Info) Description 01/22/2024 10:30 AM EST Appointment Mammography/[place] [phone] Ladi Mendosa MD [facility] HEMATOLOGY/[place] [address] 01/30/2024 11:30 AM EST Office Visit Dermatology at [address] [address] Nilda Luis MD [facility] [address] [address] 02/15/2024 9:30 AM EST [place] [phone] [place] [address] documented as of this encounter Procedures Procedure Name Priority Date/Time Associated Diagnosis Comments MAMMO DIRECT DIGITAL UNILATERAL Routine 11/07/2012 11:01 AM EDT Abnormal findings on diagnostic imaging of breast documented in this encounter Results * Mammo direct digital unilateral (11/07/2012 11:01 AM EDT) Anatomical Region Laterality Modality Breast N/A Mammography 11/07/2012 11:0 1 AM EDT Impressions 11/11/2012 12:34 PM EDT Impression: concordant Recommendation: Follow up mammogram with magnification views in 6 months. Results discussed with Ms. Sandoval on 11/09/12. ?? I performed the procedure without a resident. Home phone: [phone] Work phone: [phone] Narrative 11/11/2012 12:34 PM EDT VACUUM ASSISTED [...] are present on specimen digital X-ray. A ZQGamerk Eviva-Stereo 13 Cylinder marker clip was placed. [...] with intraductal papilloma ? CR-0 Procedure Note Vicente Sanchez MD - 11/11/2012 VACUUM ASSISTED STEREOTACTIC [...] calcifications are present on specimendigital X-ray. A ZQGamerk Eviva-Stereo 13 Cylinder marker clip was placed. [...] the procedure without a resident. Home phone: [phone] Work phone: [phone] Usman Payne MD IMG MAMMO ORDERABLES documented in this encounter Visit Diagnoses Diagnosis Abnormal findings on diagnostic imaging of breast Other (abnormal) findings on radiological examination of breast documented in this encounter Care Teams Tire Changer Relationship Specialty Start Date End Date Trinh Coates MD [address] [place] [address] PCP - General 01/11/10 documented as of this encounter
--- OUTSIDE RECORDS SUMMARY | 2023-09-07 11:36 | XMS_ITS | Encounter Summary ---
Author Organization [facility] [place] [address] Care Team Providers Care Inspector Rag Sorting Name Role Phone Trinh Coates MD Primary Care Provider [phone] Encounter Details Date Type Department Care Team (Latest Contact Info) Description 05/20/2013 12:59 PM EDT - 05/20/2013 11:59 PM EDT Hospital [place] [address] CLINIC, Trinh Medina MD [facility] [address] [place] [address] Abnormal mammogram Discharge Disposition: Home Social History Tobacco Use [...] Take 40 mg by mouth daily. 10/31/2012 terbinafine (LAMISIL) 250 mg tablet Take 250 mg by mouth daily. 12/09/2015 CARDIZEM [place] 240 mg Tablet SR daily. 10/31/2012 10/15/2015 Shannon [place], 0.3-30 mg-mcg per tablet 10/31/2012 10/08/2013 KLOR-CON M20 20 mEq extended release tablet 2 times daily. 10/31/2012 simvastatin (ZOCOR) 10 mg tablet nightly. 10/31/2012 03/29/2017 triamcinolone (ARISTOCORT) 0.5 % cream 10/24/201209/2017 Valsartan-Hydrochlorothi azide 160-25 mg Tab daily. 10/31/2012 10/15/19 16 clobetasol (TEMOVATE) 0.05 % creamIndications:Psorias is Apply to affected areas on knees, elbows and hands twice daily for two week cycles as needed. 60 g 1 03/15/2013 09/08/2013 documented as of this encounter Plan of Treatment Upcoming Encounters Date Type Department Care Team (Late st Contact Info) Description 01/22/2024 10:30 AM EST Appointment Mammography/[place] [phone] Ladi Mendosa MD [facility] HEMATOLOGY/[place] [address] 01/30/2024 11:30 AM EST Office Visit Dermatology at [address] [phone] Nilda Luis MD [facility] DR [address] [address] 02/15/2024 9:30 AM EST [place] [phone] [place] [address] documented as of this encounter Procedures Procedure Name Priority Date/Time Associated Diagnosis Comments MAMMO CALL BACK DIAGNOSTIC EXTRA VIEW UNILATERAL Routine 05/20/2013 1:36 PM EDT Abnormal mammogram documented in this encounter Results * Mammo call back diagnostic extra view unilateral (05/20/2013 1:36 PM EDT) Anatomical Region Laterality Modality Breast N/A Mammography 05/20/2013 1:36 PM EDT Impressions 05/20/2013 6:25 PM EDT IMPRESSION: This is a (BIRADS Category 2) BENIGN FINDING for an area of small post-biopsy change with no residual calcifications seen in the Right breast. The patient may return to her regularly scheduled screening mammography interval dependent upon her age and risk factors. 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 TECHNIQUE: 2D- CC, MLO, mag CC and mag ML views of the Right breast were obtained with direct digital capture. FINDINGS: There is a post-biopsy clip seen in the upper central quadrant at the 1200 position, approximately 9cm from the nipple. There is a small area of adjacent post-biopsy change. No residual calcifications are seen. No suspicious mammographic findings are seen throughout the remainder of the breast. Procedure Note Mary Sanchez MD - 05/20/2013 DIAGNOSTIC RIGHT MAMMOGRAM ON 05/20/13: CLINICAL INDICATION: Six-month follow-up mammogram following stereotactic guided biopsy of an area of benign calcifications (Path: intraductalpapilloma with apocrine change and ductal hyperplasia). TECHNIQUE: 2D- CC, MLO, mag CC and mag ML views of the Right breast were obtained with direct digital capture. FINDINGS: There is a post-biopsy clip seen in the upper central quadrantat the 1200 position, approximately 9cm from the nipple. There is a small area of adjacent post-biopsy change. No residual calcifications are seen. Nosuspicious mammographic findings are seen throughout the remainder of the breast. IMPRESSION IMPRESSION: This is a (BIRADS Category 2) BENIGN FINDING for an area of smallpost-biopsy change with no residual calcifications seen in the Right breast. Thepatient may return to her regularly scheduled screening mammography intervaldependent upon her age and risk factors. Film and interpretation reviewed by the attending Mary Sanchez MD IMG MAMMO ORDERABLES documented in this encounter Visit Diagnoses Diagnosis Abnormal mammogram Abnormal mammogram, unspecified documented in this encounter Care Teams Inspector Rag Sorting Relationship Specialty Start Date End Date Trinh Coates MD [address] [place] [address] PCP - General 01/11/10 documented as of this encounter
--- OUTSIDE RECORDS SUMMARY | 2023-09-07 11:36 | XMS_ITS | Encounter Summary ---
Author Organization [facility] [place] [address] Care Team Providers Care Lead Ramp Service Man Name Role Phone Trinh Coates MD Primary Care Provider [phone] Reason for Visit * Diagnostic Test (Routine) - Closed Specialty Diagnoses / Procedures Referred By Diamante marin Referred To Contact Radiology Diagnoses Hyperparathyroidism, primary Procedures NM Parathyroid w/Spect & Thyroid Imaging Valentina Lucas MD [facility] [place] [address] [place] [address] Referral ID Status Reason Start Date Expiration Date V isits Requested Visits Authorized [id number] Closed Specialty Service Requested 09/25/2015 09/24/2016 3 3 Encounter Details Date Type Department Care Team (Latest Contact Info) Description 10/15/2015 10:48 AM EDT Hospital Encounter [place] [address] Valentina Lucas MD [facility] [place] [address] Discharge Disposition: Home Social History [...] 1 tablet by mouth daily. 07/26/2015 03/29/2017 cholecalciferol, Vitamin D3, 2,000 unit CapsuleIndications:Prot einuria,Essential hypertension,Hypercalce osmin Take by mouth daily. 016 terbinafine (LAMISIL) 250 mg tablet Take 250 [...] 01/22/2024 10:30 AM EST Appointment Mammography[place] [address] Ladi Mendosa MD [facility] HEMATOLOGY/[place] [address] 01/30/2024 11:30 AM EST Office Visit Dermatology at [facility] [address] [place] [phone] Nilda Luis MD [facility] DR [address] [place] [address] 02/15/2024 9:30 AM [place] [phone] [place] [address] documented as of this encounter Procedures Procedure Name Priority Date/Time Associated Diagnosis Comments NM PARATHYROID W SPECT AND THYROID IMAGING (WENCESLAO) Routine 10/15/2015 2:16 PM EDT Hyperparathyroidism , primary documented in this encounter Results * NM Parathyroid w/Spect [...] lower pole parathyroid adenoma. Valentina Lucas MD [facility] [place] ORDERABLES documented in this encounter Visit Diagnoses Not on filedocumented in this encounter Care Teams Lead Ramp Service Man Relationship Specialty Start Date End Date Trinh Coates MD [facility] [address] [place] [address] PCP - General 01/11/10 documented as of this encounter
--- OUTSIDE RECORDS SUMMARY | 2023-09-07 11:36 | XMS_ITS | Encounter Summary ---
Author Organization [facility] Address [facility] [place] [address] Care Team Providers Care Small Equipment Operator Name Role Phone Trinh Coates MD Primary Care Provider [phone] Encounter Details Date Type Department Care Team (Latest Contact Info) Description 10/15/2015 11:00 AM EDT Laboratory Appointment Lab [address] [place] [phone] Hyperparathyroidism , primary Social History Tobacco Use Types Packs/Day [...] 10:30 AM EST Appointment Mammography/[place] [phone] Ladi Mendosa MD [facility] HEMATOLOGY/[place] [address] 01/30/2024 11:30 AM EST Office Visit Dermatology at [facility] [address] [place] [phone] Nilda Luis MD [facility] [address] [place] [address] 02/15/2024 9:30 AM EST Appointment [place] [address] [place] [address] documented as of this encounter Procedures Procedure Name Priority Date/Time Associated Diagnosis Comments PTH Routine 10/15/2015 10:41 AM EDT Hyperparathyroidism , primary VITAMIN D, 25-HYDROXY Routine 10/15/2015 10:41 AM EDT Hyperparathyroidism , primary CALCIUM Routine 10/15/2015 10:41 AM EDT Hyperparathyroidism , primary documented in this encounter Results * VIT D Total Evaluation (10/15/2015 10:41 AM EDT) 25-OH Vit D Total 52 30 - 100 ng/mL [facility] Comment: Deficient <10 ng/mL Insufficient 10 to 29 ng/mL Sufficient 30 to 100 ng/mL Potential Intoxication >100 ng/mL According to the [place] National Osteoporosis Foundation, Vitamin D concentrations >30 ng/mL are sufficient to protect bone health. ??The National Kidney Foundation has similarly stated that patients with Vitamin D concentrations <30ng/mL should be considered to be insufficient or deficient. http://[employer] – TULSAnatlkidneyfoundation http://[employer] – TULSAVitD The [employer] Vitamin D Immunoassay detects both 25-OH Vitamin D2 and 25-OH Vitamin D3, but only a total Vitamin D concentration is reported. Blood specimen (specimen) 10/15/2015 10:41 AM EDT 10/15/2015 10:51 AM EDT Narrative Resulting Agency Comment Spec In Lab Valentina Lucas MD CHEMISTRY ORDERAB LES [facility] [place] [address] * (ABNORMAL) PTH (10/15/2015 10:41 AM EDT) PTH 77(H) 15 - 65 pg/mL [facility] Blood specimen (specimen) 10/15/2015 10:41 AM EDT 10/15/2015 10:51 AM EDT Narrative Resulting Agency Comment Spec In Lab Valentina Lucas MD CHEMISTRY ORDERAB LES Performing Organization Address City/[facility]/ZIP Co de Phone Number [facility] [place] [address] * (ABNORMAL) Calcium (10/15/2015 10:41 AM EDT) Calcium 11.3(H) 8.5 - 10.5 mg/dL [facility] Blood specimen (specimen) 10/15/2015 10:41 AM EDT 10/15/2015 10:51 AM EDT Narrative Resulting Agency Comment Spec In Lab Valentina Lucas MD CHEMISTRY ORDERAB LES Performing Organization Address [facility]/ZIP Co de Phone Number [facility] [place] [address] documented in this encounter Visit Diagnoses Diagnosis Hyperparathyroidism, primary Primary hyperparathyroidism documented in this encounter Care Teams Small Equipment Operator Relationship Specialty Start Date End Date Trinh Coates MD [address] [place] [address] PCP - General 01/11/10 documented as of this encounter
--- OUTSIDE RECORDS SUMMARY | 2023-09-07 11:36 | XMS_ITS | Encounter Summary ---
Author Organization [facility] [place] [address] Care Team Providers Care Top Installer Name Role Phone rTinh Coates MD Primary Care Provider [phone] Reason for Visit * Diagnostic Test (Routine) - Closed Specialty Diagnoses / Procedures Referred By Diamante marin Referred To Contact Radiology Diagnoses Hyperparathyroidism, primary Procedures NM Parathyroid w/Spect & Thyroid Imaging Valentina Lucas MD [facility] [place] [address] [place] [address] Referral ID Status Reason Start Date Expiration Date V isits Requested Visits Authorized [id number] Closed Specialty Service Requested 09/25/2015 09/24/2016 3 3 Encounter Details Date Type Department Care Team (Latest Contact Info) Description 10/15/2015 1:24 PM EDT - 10/15/2015 11:59 PM EDT Hospital Encounter [place] [address] Valentina Lucas MD [facility] [place] [address] Discharge Disposition: Home Social History [...] Take 1 capsule by mouth daily. 03/29/2017 cholecalciferol, Vitamin D3, 2,000 unit CapsuleIndications:Prot [...] 01/22/2024 10:30 AM EST Appointment Mammography[place] [phone] Ladi Mendosa MD [facility] HEMATOLOGY/[place] [address] 01/30/2024 11:30 AM EST Office Visit Dermatology at [address] [phone] Nilda Luis MD [facility] DR [address] [place] [address] 02/15/2024 9:30 AM EST [place] [phone] [place] [address] documented as of this encounter Procedures Procedure Name Priority Date/Time Associated Diagnosis Comments NM PARATHYROID W SPECT AND THYROID IMAGING (WENCESLAO) Routine 10/15/2015 2:16 PM EDT Hyperparathyroidism , primary documented in this encounter Visit Diagnoses Not on filedocumented in this encounter Administered Medications Inactive Administered Medications - up to 3 most recent administrations Medication Order MAR Action Action Date Dose Rate Site technetium (Tc-99m) pertechnetate (TC04) injection 18.4 mCi 18.4 mCi, Intravenous, ONCE PRN, 1 dose, Starting on Sun10/15/15 at 1405, Until Sun10/15/15 at 1400, Per Protocol, Routine Given 10/15/2015 2:00 PM EDT 18.4 mCi documented in this encounter Care Teams Top Installer Relationship Specialty Start Date End Date Trinh Coates MD [address] [facility] [place] [address] PCP - General 01/11/10 documented as of this encounter
--- OUTSIDE RECORDS SUMMARY | 2023-09-07 11:36 | XMS_ITS | Encounter Summary ---
Author Organization [facility] Address [facility] [place] [address] Care Team Providers Care Delicatessen Store Manager Name Role Phone Trinh Coates MD Primary Care Provider [phone] Encounter Details Date Type Department Care Team (Late st Contact Info) Description 11/11/2012 [place] [phone] Mary Sanchez MD [facility] [place] [address] Abnormal mammogram (Primary Dx) Social History Tobacco Use Types [...] 10:30 AM EST Appointment Mammography/[place] [phone] Ladi Mendosa MD [facility] [place]EMATOLOGY/[place] [address] 01/30/2024 11:30 AM EST Office Visit Dermatology at [facility] [address] [place] [phone] Nilda Luis MD [facility] [place] [address] 02/15/2024 9:30 AM EST Appointment [place] [address] [place] [address] documented as of this encounter Results * Mammo call back [...] in this encounter Visit Diagnoses Diagnosis Abnormal mammogram- Primary Abnormal mammogram, unspecified Abnormal mammogram Abnormal mammogram, unspecified documented in this encounter Care Teams Delicatessen Store Manager Relationship Specialty Start Date End Date Trinh Coates MD [address] [place] [address] PCP - General 01/11/10 documented as of this encounter
--- OUTSIDE RECORDS SUMMARY | 2023-09-07 11:36 | XMS_ITS | Encounter Summary ---
Author Organization [facility] Address [facility] [place] [address] Care Team Providers Care Academic Support Center Director Name Role Phone Trinh Coates MD Primary Care Provider [phone] Reason for Visit * Reason Comments Psoriasis Encounter Details Date Type Department Care Team (Late st Contact Info) Description 09/08/2013 1:45 PM EDT Follow-Up Dermatology at [facility] [address] [place] [address] Rebecca Gaines MD [facility] [address] [address] Psoriasis (Primary Dx); Neoplasm of unspecified nature of bone, soft tissue, and skin; Multiple benign nevi Discharge Disposition: Home Social History Tobacco Use Types Packs/Day Years Used Date Smoking Tobacco: Former Sex and Gender Information Value Date Recorded Sex Assigned at Not on file Gender Identity Not on file Sexual Orientation Not on file documented as of this encounter Patient Instructions * Patient Instructions* Kera Chawla LPN - 09/08/2013 2:40 PM EDT You had a biopsy of your skin (removal of a small piece of tissue for examination under a microscope). Keep area covered and moist with a band aid and Vaseline, change daily. The results will be available in about 7 days. Your doctor or nurse will tell you the results by phone or letter and plan any follow up treatment if necessary. documented in this encounter Progress Notes * Rebecca Gaines MD - 09/08/2013 2:11 PM EDT Date of office visit: 09/08/2013 Ruben Sandoval : 1965 Provider: Rebecca Gaines MD SKIN HISTORY: Psoriasis HPI Ruben Sandoval is a 48 y.o. year old female who was last seen by me on 03/15/13 and is here for follow up of psoriasis. She has been using Clobetasol for two weeks on and two weeks off and alternating with Triamcinolone which helps somewhat. Her worse areas of concern today are her elbows, leftknee, left posterior leg, right ankle. She also notes a new dark mole on the neck PAST MEDICAL HX Patient Active Problem List Diagnosis Code ??? Hypertension 401.9 ??? Depression 311 MEDS: Current Outpatient Prescriptions Medication Sig Dispense Refill ??? terbinafine (LAMISIL) 250 mg tablet Take 250 mg by mouth daily. ??? CARDIZEM LA 240 mg Tablet SR ??? fluoxetine (PROZAC) 40 mg capsule ??? CRYSELLE, 28, 0.3-30 mg-mcg per tablet ??? KLOR-CON M20 20 mEq extended release tablet ??? simvastatin (ZOCOR) 10 mg tablet ??? triamcinolone (ARISTOCORT) 0.5 % cream ??? Valsartan-Hydrochlorothiazide 160-25 mg Tab ??? clobetasol (TEMOVATE) 0.05 % cream Apply to affected areas on knees, elbows and hands twice daily for two week cycles as needed. 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 Significant skin findings: Skin: Skin examination of Elbows, left knee, left posterior leg, right ankle. Significant skin findings: 1. Brantley scaling papules, elbows, left knee, left posterior leg, right ankle. Erythema is moderate The amount of scale is mild Nails: uninvolved The worst areas of psoriasis for this patient are elbows, left knee, left posterior leg, right ankle. 2. Multiple, 0.3-0.5cm, medium-brown, evenly-pigmented macules and papules. All with regular pigment pattern on dermoscopy. 3. 3mm dark macule, irregularly pigmented, asymmetric on the left neck ASSESSMENT/PLAN 1. Mild Psoriasis -Discussed therapeutic options including tar and oral medications. Recommendation: -MG217 topical OTC, apply before bedtime nightly -Continue with Clobetasol 0.05% cream (refill)twice daily for two weeks alternating with Calcipotriene (Dovonex) x 2 weeks Prescription: -Dovonex 0.05% Cream, apply twice daily for two weeks alternating with Clobetasol 0.05% cream x 2 weeks 2. Benign-appearing Nevi - All with even pigmentation and well defined margins. - We will continue to monitor. - Encouraged patient to monitor these lesions for any changes and call if such occurs. - Discussed ABCDE's of melanoma. 3. Nevus rule out atypia Procedure: Skin biopsy by punch technique. Location: left neck Discussed indications for the procedure and expectations including risks and benefits. Verbal consent obtained. Skin prep with alcohol. Local anesthesia: buffered 1% lidocaine with 1/100,000 epinephrine. A 4 mm punch biopsy to the level of the subcutis was performed. Wound closed with monofilament suture. There were no complications; the patient tolerated the procedure well. The wound was dressed. Post-procedure expectations (including discomfort management), wound care and activity restrictions were reviewed. Follow-up based on pathology results. Suture removal: 10 days, patient will have removed closer to home -An After Visit Summary was printed and given to the patient. Return to clinic: PRN I am documenting this encounter acting as the scribe for and in the presence of Dr. Gaines: Kera Chawla LPN I reviewed and edited this note above, a scribed service performed by my nurse, and on closure of this note I agree with the accuracy of the documentation in this encounter. I performed the visit service though my nurse assisted me by scribing the note. I reviewed and edited this note above, a scribed service performed by my nurse, and on closure of this note I agree with the accuracy of the documentation in this encounter.MD Rebecca OCAMPO MD Section of Dermatology [facility] documented in this encounter Plan of Treatment Upcoming Encounters Date Type Department Care Team (Late st Contact Info) Description 01/22/2024 10:30 AM EST Appointment Mammography/[place] [phone] Ladi Mendosa MD [facility] HEMATOLOGY/[place] [address] 01/30/2024 11:30 AM EST Office Visit Dermatology at [place] [address] [place] [address] Nilda Luis MD [facility] DR [address] [place] [address] 02/15/2024 9:30 AM EST [place] [phone] [place] [address] documented as of this encounter Procedures Procedure Name Priority Date/Time Associated Diagnosis Comments SPECIMEN TO PATHOLOGY (NON-OR) Routine 09/08/2013 4:17 PM EDT Neoplasm of unspecified nature of bone, soft tissue, and skin SURGICAL PATHOLOGY REPORT Routine 09/08/2013 4:17 PM EDT documented in this encounter Results * Surgical Pathology Report (09/08/2013 4:17 PM EDT) Surgical Pathology Report ? [facility] ? Provider: ?? REBECCA GAINES ?Pt. Name: ?? RUBEN SANDOVAL ? Acc #: ?[id number] ? Pt. ? Col Date: ?? 09/08/2013 ? /Sex: ?1965,(48 years),Female ? Rec Date: ?? 09/08/2013 ? LOC: ?[facility] ? SURGICAL PATHOLOGY ? ---Pathologic Diagnosis--- ? Skin, left neck, punch biopsy: ? Atypical lentiginous junctional melanocytic proliferation, extending to the ? peripheral margin, and associated lentiginous compound nevus, (see ? Comment). ? CR-0 ? 09/09/13 ? BJM ? 09/11/13 Verified by: ? Melodie Han MD ? Dermatopathologist ? (Electronic Signature) ? The attending pathologist whose signature appears on this report has ? reviewed all diagnostic slides and has edited the gross and/or ? microscopic portion of the report in rendering the final pathologic ? diagnosis. ? ---Comment--- ? There is a proliferation of single and nested junctional melanocytes which ? is concerning because it is on actinically damaged skin. ??We do not see ? enough proliferation for the diagnosis of melanoma in situ, and there is a ? central nevus component. ??However, because the nature of the proliferation ? is not certain, re-excision is recommended to fully remove the lesion and ? prevent recurrence. ? Dr. Matos also examined the case and concurs with the interpretation. ? ---Gross Description--- ? A - Labeled/Fixative: Patient demographics, formalin. ? Quantity/Size: Single, 0.4 x 0.3 cm. ? Tissue Description: Punch of caputo skin with a 0.3 cm dark brown macule. ? Sections/Processing: Bisected. (T1) ??sns ? ---Clinical Information--- ? Specimen Submitted: ? A - Skin, left neck, punch (1) ? Clinical History: ? 3 mm dark macule. ? Clinical Diagnosis: ? Nevus, rule out atypia CERNER MILLENNIUM 09/08/2013 4:17 PM EDT Rebecca Gaines MD PATHOLOGY/CYTOLOGY O SHANITA Performing Organization Address City/[facility] Co de Phone Number AINSLEY VANCEENNIUM * Specimen to Pathology (NON-OR) (09/08/2013 4:17 PM EDT) AP Specimen 09/08/2013 4:17 PM EDT 09/08/2013 4:17 PM EDT Narrative CERNER MILLENNIUM - 09/08/2013 4:17 PM EDT Specimen requisition ordered. ??Separate Pathology report to follow Rebecca Gaines MD PATHOLOGY/CYTOLOGY O SHNAITA AINSLEY QUINTANILLAIUM documented in this encounter Visit Diagnoses Diagnosis Psoriasis- Primary Other psoriasis Neoplasm of unspecified nature of bone, soft tissue, and skin Multiple benign nevi Benign neoplasm of skin, site unspecified documented in this encounter Care Teams Academic Support Center Director Relationship Specialty Start Date End Date Trinh Coates MD [address] [place] [address] PCP - General 01/11/10 documented as of this encounter
--- OUTSIDE RECORDS SUMMARY | 2023-09-07 11:36 | XMS_ITS | Encounter Summary ---
Author Organization [facility] Address [facility] [place] [address] Care Team Providers Care Certified Legal Investigator Name Role Phone Trinh Coates MD Primary Care Provider [phone] Encounter Details Date Type Department Care Team (Late st Contact Info) Description 04/13/2014 Telephone Dermatology at [facility] [address] [place] [phone] Ernestine Gaines MD [facility] [address] [place] [address] Social History Tobacco Use Types Packs/Day Years Used Date Smoking Tobacco: Former Sex and Gender Information Value Date Recorded Sex Assigned at Not on file Gender Identity Not on file Sexual Orientation Not on file documented as of this encounter Miscellaneous Notes * Telephone Encounter - Ander Mcfarland - 04/13/2014 10:31 AM EST Patient called looking for a refill on her clobetasol (TEMOVATE) 0.05 % Cream would like it called into [facility] documented in this encounter Plan of Treatment Upcoming Encounters Date Type Department Care Team (Late st Contact Info) Description 01/22/2024 10:30 AM EST Appointment Mammography/[place] [phone] Ladi Mendosa MD [facility] HEMATOLOGY/[place] [address] 01/30/2024 11:30 AM EST Office Visit Dermatology at [facility] [address] [place] [phone] Nilda Luis MD [facility] [address] [place] [address] 02/15/2024 9:30 AM EST Appointment [place] [phone] [place] [address] documented as of this encounter Visit Diagnoses Not on filedocumented in this encounter Care Teams Certified Legal Investigator Relationship Specialty Start Date End Date Trinh Coates MD [address] [place] [address] PCP - General 01/11/10 documented as of this encounter
--- OUTSIDE RECORDS SUMMARY | 2023-09-07 11:36 | XMS_ITS | Encounter Summary ---
Author Organization [facility] [place] [address] Care Team Providers Care Coal Pipeline Operator Name Role Phone Trinh Coates MD Primary Care Provider [phone] Reason for Referral * Diagnostic Test (Routine) - Closed Specialty Diagnoses / Procedures Referred By Contac t Referred To Contact Radiology Diagnoses Hyperparathyroidism, primary Procedures NM Parathyroid w/Spect & Thyroid Imaging Valentina Lucas MD [facility] [place] [address] [place] [address] Referral ID Status Reason Start Date Expiration Date V isits Requested Visits Authorized [id number] Closed Specialty Service Requested 09/25/2015 09/24/2016 3 3 Reason for Visit * Diagnostic Test (Routine) - Closed Specialty Diagnoses / Procedures Referred By Contac t Referred To Contact Radiology Diagnoses Hyperparathyroidism, primary Procedures NM Parathyroid w/Spect & Thyroid Imaging Valentina Lucas MD [facility] [place] [address] [place] [address] Referral ID Status Reason Start Date Expiration Date V isits Requested Visits Authorized [id number] Closed Specialty Service Requested 09/25/2015 09/24/2016 3 3 Encounter Details Date Type Department Care Team (Latest Contact Info) Description 10/15/2015 10:47 AM EDT Hospital Encounter Nuclear Medicine at [facility] [place] [address] Valentina Lucas MD [facility] [place] [address] Hyperparathyroidism , primary Discharge Disposition: Home Social History Tobacco Use [...] 01/22/2024 10:30 AM EST Appointment Mammography/[place] [address] Ladi Mendosa MD [facility] HEMATOLOGY/ONCOLOGY [place], [place] [id number] 01/30/2024 11:30 AM EST Office Visit Dermatology at [address] [phone] Nilda Luis MD [facility] [address] [address] 02/15/2024 9:30 AM EST Appointment [place] [address] [place] [address] documented as of this encounter Procedures Procedure [...] lower pole parathyroid adenoma. Valentina Lucas MD IMG NM ORDERABLES documented in this encounter Visit Diagnoses Diagnosis Hyperparathyroidism, primary Primary hyperparathyroidism documented in this encounter Administered Medications Inactive Administered Medications - up to 3 most recent administrations Medication Order MAR Action Action Date Dose Rate Site technetium (Tc-99m) sestamibi injection 19.2 mCi 19.2 mCi, Intravenous, ONCE PRN, 1 dose, Starting on Sun10/15/15 at 1140, Until Sun10/15/15 at 1140, Per Protocol, Routine Given 10/15/2015 11:40 AM EDT 19.2 mCi Left Arm documented in this encounter Care Teams Coal Pipeline Operator Relationship Specialty Start Date End Date Trinh Coates MD [address] [place] [address] PCP - General 01/11/10 documented as of this encounter
--- OUTSIDE RECORDS SUMMARY | 2023-09-07 11:36 | XMS_ITS | Encounter Summary ---
Author Organization [facility] [place] [address] Care Team Providers Care Master [employer] Name Role Phone Trinh Coates MD Primary Care Provider [phone] Encounter Details Date Type Department Care Team (Latest Contact Info) Description 11/07/2012 9:56 AM EDT - 11/07/2012 11:59 PM EDT Hospital [place] [phone] Abnormal findings on diagnostic imaging of breast [...] 01/22/2024 10:30 AM EST Appointment Mammography/[place] [phone] Ladi Mendosa MD [facility] HEMATOLOGY/[place] [address] 01/30/2024 11:30 AM EST Office Visit Dermatology at [place] [address] [place] [address] Nilda Luis MD [facility] DR [address] [place] [address] 02/15/2024 9:30 AM EST [place] [address] [place] [address] documented as of this encounter Procedures Procedure Name Priority Date/Time Associated Diagnosis Comments MAMMO SPECIMEN Routine 11/07/2012 11:03 AM EDT Abnormal findings on diagnostic imaging of breast SURGICAL PATHOLOGY REPORT Routine 11/07/2012 10:40 AM EDT documented in this encounter Results * Mammo specimen (11/07/2012 11:03 AM EDT) Anatomical Region Laterality Modality Breast N/A Mammography 11/07/2012 11:0 3 AM EDT Impressions 11/11/2012 12:34 PM EDT Impression: concordant Recommendation: Follow up mammogram with magnification views in 6 months. Results discussed with Ms. Arriaga on 11/09/12. ?? I performed the procedure without a resident. Home phone: [phone] Work phone: [phone] Narrative 11/11/2012 12:34 PM EDT VACUUM ASSISTED [...] are present on specimen digital X-ray. A [employer] 13 Cylinder marker clip was placed. Cranio-caudal [...] calcifications are present on specimendigital X-ray. A [employer] 13 Cylinder marker clip was placed. Cranio-caudal [...] in 6 months. Results discussed with Ms. Arriaga on 11/09/12. I performed the procedure without a resident. Home phone: [phone] Work phone: [phone] Usman Payne MD IMG MAMMO ORDERABLES * Surgical Pathology Report (11/07/2012 10:40 AM EDT) Surgical Pathology Report ? [facility] ? Provider: ?? VICENTE SANCHEZ ? Pt. Name: ?? WENDY ARRIAGA ? Acc #: ?[id number] ?Pt. ? Col Date: ?? 11/07/2012 ? /Sex: ?1965,(47 years),Female ? Rec Date: ?? 11/07/2012 ? LOC: ?3S ? SURGICAL PATHOLOGY ? ---Pathologic Diagnosis--- ? Needle biopsies: ?Right breast. ? Diagnosis: ?1. Intraductal papilloma with columnar cell ?hyperplasia, usual ductal hyperplasia, and ?apocrine change (see Comment) ? 2. Clustered apocrine cysts ? Microcalcificatio ns: ??Associated with intraductal papilloma ? CR-0 ? 11/08/12 ? MURPHY ? 11/08/12 Verified by: ? Sally RENEE, Bill Avila ? Pathologist ? (Electronic Signature) ? The attending pathologist whose signature appears on this report has ? reviewed all diagnostic slides and has edited the gross and/or ? microscopic portion of the report in rendering the final pathologic ? diagnosis. ? ---Comment--- ? Based on the imaging findings of a 6 mm cluster of calcifications, the ? lesion appears to be largely excised; recommend radiologic correlation. ? Dr. Maldonado reviewed select slides (A2) and agrees with the diagnosis. ? Additional levels (A1,A2) were examined. ? ---Gross Description--- ? A - Received in two containers: ? 1 - Labeled/Fixative: Right breast, calcs, formalin. ? Quantity/Size: Three, from 2.1 x 0.3 cm to 3.3 x 0.3 cm. ? Description: Soft, caputo-yellow core biopsies. ? Sections/Processi ng: Submitted in (A1-A2). ? 2 - Labeled/Fixative: Right breast, no calcs, formalin. ? Quantity/Size: Fragments, aggregating to 1.9 x 1.3-0.3 cm. ? Description: Soft, caputo-yellow core biopsies and fragments. ? Sections/Processi ng: Submitted in (A3). ? Ischemic Time: Eight minutes. (T3) ??pps ? ---Clinical Information--- ? Specimen Submitted: ? [facility] ? Provider: ?? VICENTE SANCHEZ ? Pt. Name: ?? WENDY ARRIAGA ? Acc #: ?[id number] ?Pt. ? Col Date: ?? 11/07/2012 ? /Sex: ?1965,(47 years),Female ? Rec Date: ?? 11/07/2012 ? LOC: ?3S ? SURGICAL PATHOLOGY ? A - Right breast, SBx, 9 gauge with and without calcifications ? 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 Clinical Diagnosis: ? Same ? Report to: ? Trinh Coates MD ? [facility] ? [address] ? [place] [address] AINSLEY TOWNSEND 11/07/2012 10:4 0 AM EDT Vicente Sanchez MD PATHOLOGY/CYTOLOGY O RDERABLES Performing Organization Address City/State/[facility] Co de Phone Number AINSLEY TOWNSEND documented in this encounter Visit Diagnoses Diagnosis Abnormal findings on diagnostic imaging of breast Other (abnormal) findings on radiological examination of breast documented in this encounter Care Teams Master [employer] Relationship Specialty Start Date End Date Trinh Coates MD [address] [place] [address] PCP - General 01/11/10 documented as of this encounter
--- OUTSIDE RECORDS SUMMARY | 2023-09-07 11:36 | XMS_ITS | Encounter Summary ---
Author Organization [facility] Address [facility] [place] [address] Care Team Providers Care Gas Leak Inspector Helper Name Role Phone Trinh Navarrete MD Primary Care Provider [phone] Encounter Details Date Type Department Care Team (Latest Contact Info) Description 11/12/2014 10:30 AM EDT Office Visit Neph[place] [address] Khris Thornton MD [facility] [place] [address] Proteinuria (Primary Dx); Essential hypertension; Hypercalcemia Discharge Disposition: Home Social History Tobacco Use Types Packs/Day Years Used Date Smoking Tobacco: Former Sex and Gender Information Value Date Recorded Sex Assigned at Not on file Gender Identity Not on file Sexual Orientation Not on file documented as of this encounter Last Filed Vital Signs Vital Sign Reading Time Taken Comments Blood Pressure 152/82 11/12/2014 10:32 AM EDT Pulse 72 11/12/2014 10:32 AM EDT Temperature - - Respiratory Rate - - Oxygen Saturation - - Inhaled Oxygen Concentration - - Weight 77.6 kg (171 lb) 11/12/2014 10:32 AM EDT Height 157.5 cm (5' 2) 11/12/2014 10:32 AM EDT Body Mass Index 31.28 11/12/2014 10:32 AM EDT documented in this encounter Progress Notes * Khris Thornton MD - 11/12/2014 11:05 AM EDT Hypertension/Nephrology Consultation Wendy Arriaga [id number] ID: [id number] y.o. old female seen at the request of Dr. Navarrete for evaluation of proteinuria. Past Medical History: 1. Hypertension 2. H/o preeclampsia 3. Proteinuria 4. JACQUELYN 5. DJD 6. Psoriasis 7. H/o nephrolithiasis History of Present Illness: Mrs. Arriaga presents today for evaluation of proteinuria and hypercalcemia. She has longstanding hypertension and proteinuria since having preeclampsia during a 22 years ago. She reports that the proteinuria has been up and down since her . Her blood pressure has been well controlled on current medications, with home readings usually < 130/80 and review of the record shows a recent reading at Dr. Navarrete' office of 120/80. She does not use NSAIDS or herbal medications. She reports some chronic LE edema but this has not worsened in recent years. Dr. Navarrete' notes also indicate that she has mild hypercalcemia with a PTH of 93. Medications: Outpatient Encounter Prescriptions as of 11/12/2014 Medication Sig Dispense Refill ??? ferrous gluconate 324 mg (37.5 mg iron) Tablet Take 324 mg by mouth daily. ??? cholecalciferol, Vitamin D3, 2,000 unit Capsule Take by mouth daily. ??? ascorbic acid (VITAMIN C) 500 mg Tablet, Chewable Take by mouth. ??? clobetasol (TEMOVATE) 0.05 % Cream Apply to affected areas on knees, elbows and hands twice daily for two week cycles as needed. 60 g 3 ??? terbinafine (LAMISIL) 250 mg tablet Take 250 mg by mouth daily. ??? CARDIZEM LA 240 mg Tablet SR daily. ??? fluoxetine (PROZAC) 40 mg capsule daily. ??? KLOR-CON M20 20 mEq extended release tablet 2 times daily. ??? simvastatin (ZOCOR) 10 mg tablet nightly. ??? triamcinolone (ARISTOCORT) 0.5 % cream ??? Valsartan-Hydrochlorothiazide 160-25 mg Tab daily. ??? [DISCONTINUED] Calcipotriene (DOVONEX) 0.005 % Crea Apply twice daily for two weeks then stop, alternating with Clobetasol 60 g 1 No facility-administered encounter medications on file as of 11/12/2014. Allergies / ADRs: Allergies Allergen Reactions ??? Pcn [Penicillins] ??? Zoloft [Sertraline] PSORIASIS FLARE Family History: Father with kidney stones Social History: , former smoker, no ETOH, no drugs. 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 Review of Systems: System Abnormalities Constitutional No fevers, malaise Eye No visual changes ENT No dysphagia CV No chest pain Resp No dyspnea GI No n/v No dysuria Skin + psoriasis Allergy No allergies Endocrine No DM Neurologic No headaches Musculoskeletal Chronic joint pain Lymph Chronic edema Psych No anxiety/depression Y N All other systems reviewed and negative. Physical Examination: Filed Vitals: 11/12/14 1032 BP: 152/82 Pulse: 72 Height: 157.5 cm (5' 2) Weight: 77.565 kg (171 lb) General: WDWN female NAD Eye: PERRL, conjunctivae clear ENT: TMs clear, OP clear Neck: S/NT, no bruits CV: S1S2, reg, II/ early systolic murmur Resp: CTA Abd: S/NT, no HSM Lymph: No cervical/supraclavicular adenopathy Ext: Tr edema BLE Skin: Warm/dry Neuro: MURPHY well, EOMI, speech intact Psych: A&O, affect appropriate Labs: UA (performed by me): SG 1.010, 2+ protein, tr blood. Urine micro shows TNTC squamous epithelial cells. No casts. Renal US December [address] Navarrete' office shows normal kidney size but some right renal cysts and left renal calculi. Results for WENDY ARRIAGA ( ) as of 11/12/2014 16:23 Ref. Range 11/12/2014 11:13 WBC Latest Range: 4.0-10.0 x10(3)/mcL 10.4 (H) RBC Latest Range: 3.93-5.22 x10(6)/mcL 4.33 Hemoglobin Latest Range: 11.2-15.7 gm/dL 13.7 Hematocrit Latest Range: 34.0-45.0 % 40.5 MCV Latest Range: 79.0-94.0 fL 93.5 MCH Latest Range: 26.6-32.2 pg 31.6 MCHC Latest Range: 32.0-36.5 gm/dL 33.8 RDWSD Latest Range: 35.0-46.0 fL 46.8 (H) RDWCV Latest Range: 10.9-14.4 % 13.7 Platelets Latest Range: 145-370 x10(3)/mcL 374 (H) MPV Latest Range: 9.0-12.0 fL 10.0 Neutr Abs (ANC) Latest Range: 1.50-6.30 x10(3)/mcL 7.21 (H) Neutrophils % No range found 69.0 Immature Gran % No range found 0.30 Lymphocytes % No range found 19.3 Monocytes % No range found 6.9 Eosinophils % No range found 3.6 Basophils % No range found 0.9 Nova Gran Abs Latest Range: 0.00-0.05 x10(3)/mcL 0.03 Lymphocytes Abs Latest Range: 1.0-3.6 x10(3)/mcL 2.0 Monocyte Abs Latest Range: 0.2-1.0 x10(3)/mcL 0.7 Eosinophils Abs Latest Range: 0.0-0.5 x10(3)/mcL 0.4 Basophils Abs Latest Range: 0.0-0.2 x10(3)/mcL 0.1 Sodium Latest Range: 135-145 mmol/L 141 Potassium Latest Range: 3.5-5.0 mmol/L 3.5 Chloride Latest Range: 98-107 mmol/L 105 CO2 Latest Range: 22-31 mmol/L 22 Anion Gap Latest Range: 5-15 mmol/L 14 BUN Latest Range: 8-18 mg/dL 16 Creatinine Latest Range: 0.70-1.20 mg/dL 0.92 Estimated GFR Latest Range: >=60 >60 Glucose Lvl Latest Range: 65-199 mg/dL 148 Calcium Latest Range: 8.5-10.5 mg/dL 10.9 (H) Phosphorus Latest Range: 2.5-4.5 mg/dL 3.2 Albumin Latest Range: 3.2-5.2 gm/dL 4.3 Ferritin Latest Range: 30-400 ng/mL 43 Total Prot Elec Latest Range: 6.1-8.0 gm/dL 6.8 Albumin Elect Latest Range: 3.60-6.00 gm/dL 4.24 Alpha1-Globulin Latest Range: 0.10-0.30 gm/dL 0.16 Alpha2-Globulin Latest Range: 0.40-0.90 gm/dL 0.96 (H) Beta Globulin Latest Range: 0.50-1.00 gm/dL 0.80 Gamma Globulin Latest Range: 0.50-1.30 gm/dL 0.64 M1 Band Latest Range: None Detected gm/dL None Detected Scan No range found See Note PTH Latest Range: 15-65 pg/mL 75 (H) Results for WENDY ARRIAGA ( ) as of 11/12/2014 16:23 Ref. Range 11/12/2014 11:00 U Creatinine No range found 107 Prot/Cre Ratio No range found 1.3 U Protein Ran Latest Range: 0-12 mg/dL 144 (H) A/P: 1. Renal: subnephrotic proteinuria with normal renal function. She reports proteinuria and hypertension since having preeclampsia, and this likely represents some mild residual injury from that event. Renal function is normal and BP is well controlled at home and in other settings. - continue valsartan - f/u 1 year 2. Hypercalcemia: mild, asymptomatic hypercalcemia in the setting of HCTZ therapy and elevated PTH.Likely primary hyperparathyroidism exacerbated by thiazide therapy. - check SPEP/UPEP to r/o paraprotein disease - consider d/c HCTZ Thank you for allowing me to participate in the care of this interesting patient. >the total time spent [id number] AND total time the provider spent counseling was xxx minutes. Please CC to: TRINH NAVARRETE MD (General) @[email or web address]@ documented in this encounter Plan of Treatment Upcoming Encounters Date Type Department Care Team (Late st Contact Info) Description 01/22/2024 10:30 AM EST Appointment Mammography/[place] [id number] Ladi Mendosa MD [facility] HEMATOLOGY/[place] [address] 01/30/2024 11:30 AM EST Office Visit Dermatology at [facility] [address] [place] [address] Nilda uLis MD [facility] DR [place] [address] 02/15/2024 9:30 AM EST [place]ment [place] [phone] [place] [address] documented as of this encounter Procedures Procedure Name Priority Date/Time Associated Diagnosis Comments PTH Routine 11/12/2014 11:13 AM EDT Proteinuria Essential hypertension Hypercalcemia HEMOGRAM Routine 11/12/2014 11:13 AM EDT Proteinuria Essential hypertension Hypercalcemia DIFFERENTIAL, AUTOMATED Routine 11/12/2014 11:13 AM EDT Proteinuria Essential hypertension Hypercalcemia CBC (WITH DIFF) Routine 11/12/2014 11:13 AM EDT Proteinuria Essential hypertension Hypercalcemia PROTEIN ELECTROPHORESIS, SERUM Routine 11/12/2014 11:13 AM EDT Proteinuria Essential hypertension Hypercalcemia PHOSPHORUS Routine 11/12/2014 11:13 AM EDT Proteinuria Essential hypertension Hypercalcemia FERRITIN Routine 11/12/2014 11:13 AM EDT Proteinuria Essential hypertension Hypercalcemia ALBUMIN LEVEL Routine 11/12/2014 11:13 AM EDT Proteinuria Essential hypertension Hypercalcemia BASIC METABOLIC PANEL (NON-FASTING) Routine 11/12/2014 11:13 AM EDT Proteinuria Essential hypertension Hypercalcemia PROTEIN/CREATININE RATIO, URINE Routine 11/12/2014 11:00 AM EDT Proteinuria Essential hypertension Hypercalcemia PROTEIN ELECTROPHORESIS, URINE, RANDOM Routine 11/12/2014 11:00 AM EDT Proteinuria Essential hypertension Hypercalcemia documented in this encounter Results * (ABNORMAL) Differential, Automated (11/12/2014 11:13 AM EDT) Neutrophils % 69.0 % CERNER MILLENNIUM Neutr Abs (ANC) 7.21(H) 1.50 - 6.30 x10(3)/mc L CERNER MILLENNIUM Lymphocytes % 19.3 % CERNER MILLENNIUM Lymphocytes Abs 2.0 1.0 - 3.6 x10(3)/mc L CERNER MILLENNIUM Monocytes % 6.9 % CERNER MILLENNIUM Monocyte Abs 0.7 0.2 - 1.0 x10(3)/mc L CERNER MILLENNIUM Eosinophils % 3.6 % CERNER MILLENNIUM Eosinophils Abs 0.4 0.0 - 0.5 x10(3)/mc L CERNER MILLENNIUM Basophils % 0.9 % CERNER MILLENNIUM Basophils Abs 0.1 0.0 - 0.2 x10(3)/mc L CERNER MILLENNIUM Immature Gran % 0.30 % CERN ER MILLENNIUM Comment: Immature granulocytes(IG's)percentage and absolute count will include metamyelocytes, myelocytes, and promyelocytes. Blood smears from CBCs yielding IG's will be scanned manually for concordance. If this scan disagrees with the automated IG or if promyelocytes are noted, a manual differential will be performed. Nova Gran Abs 0.03 0.00 - 0.05 x10(3)/mc L CERNER MILLENNIUM Blood specimen (specimen) 11/12/2014 11:13 AM EDT 11/12/2014 11:31 AM EDT Narrative Resulting Agency Comment Spec In Lab Khris Thornton MD HEMATOLOGY ORDERABLE S CERBLADIMIR VANCEENNIUM * (ABNORMAL) Hemogram (11/12/2014 11:13 AM EDT) WBC 10.4(H) 4.0 - 10.0 x10(3)/mcL CERNER MILLENNIUM RBC 4.33 3.93 - 5.22 x10(6)/mcL CERNER MILLENNIUM Hemoglobin 13.7 11.2 - 15.7 gm/dL CERNER MILLENNIUM Hematocrit 40.5 34.0 - 45.0 % CERNER MILLENNIUM MCV 93.5 79.0 - 94.0 fL CERNER MILLENNIUM MCH 31.6 26.6 - 32.2 pg CERNER MILLENNIUM MCHC 33.8 32.0 - 36.5 gm/dL CERNER MILLENNIUM Platelets 374(H) 145 - 370 x10(3)/mcL CERNER MILLENNIUM RDWSD 46.8(H) 35.0 - 46.0 fL CERNER MILLENNIUM RDWCV 13.7 10.9 - 14.4 % CERNER MILLENNIUM MPV 10.0 9.0 - 12.0 fL CERNER MILLENNIUM Blood specimen (specimen) 11/12/2014 11:13 AM EDT 11/12/2014 11:31 AM EDT Narrative Resulting Agency Comment Spec In Lab Khris Thornton MD HEMATOLOGY ORDERABLE S CERNER MILLENNIUM * (ABNORMAL) Protein Electrophoresis, serum (11/12/2014 11:13 AM EDT) Total Prot Elec 6.8 6.1 - 8.0 gm/dL CERNER MILLENNIUM Albumin Elect 4.24 3.60 - 6.00 gm/dL CERNER MILLENNIUM Alpha1-Globuli n 0.16 0.10 - 0.30 gm/dL CERNER MILLENNIUM Alpha2-Globuli n 0.96(H) 0.40 - 0.90 gm/dL CERNER MILLENNIUM Beta Globulin 0.80 0.50 - 1.00 gm/dL CERNER MILLENNIUM Gamma Globulin 0.64 0.50 - 1.30 gm/dL CERNER MILLENNIUM M1 Band None Detected None Detected gm/dL CERNER MILLENNIUM Scan See Note CERNER MILLENNIUM Comment:Please see scanned r eport in Chart Review under the D-H Laboratory Heading. Blood specimen (specimen) 11/12/2014 11:13 AM EDT 11/12/2014 11:31 AM EDT Narrative Resulting Agency Comment Spec In Lab Khris Thornton MD CHEMISTRY ORDERABLES Performing Organization Address City/[facility]/ZIP Co de Phone Number [facility] * Phosphorus (11/12/2014 11:13 AM EDT) Phosphorus 3.2 2.5 - 4.5 mg/dL [facility] Blood specimen (specimen) 11/12/2014 11:13 AM EDT 11/12/2014 11:31 AM EDT Narrative Resulting Agency Comment Spec In Lab Khris Thornton MD CHEMISTRY ORDERABLES Performing Organization Address [facility] Co de Phone Number [facility] * Albumin Level (11/12/2014 11:13 AM EDT) [facility] Albumin 4.3 3.2 - 5.2 gm/dL [facility] Blood specimen (specimen) 11/12/2014 11:13 AM EDT 11/12/2014 11:31 AM EDT Narrative Resulting Agency Comment Spec In Lab Khris Thornton MD CHEMISTRY ORDERABLES Performing Organization Address [facility] de Phone Number [facility] * Ferritin (11/12/2014 11:13 AM EDT) [facility] Ferritin 43 30 - 400 ng/mL [facility] Comment: Pediatric reference ranges not verified at [facility], interpret with caution. Reference ranges for females greater than 50 years of age approach values for men, i.e., 30-400 ng/mL. Blood specimen (specimen) 11/12/2014 11:13 AM EDT 11/12/2014 11:31 AM EDT Narrative Resulting Agency Comment Spec In Lab Khris Thornton MD CHEMISTRY ORDERABLES Performing Organization Address City/[facility] Co de Phone Number [facility] * (ABNORMAL) PTH (11/12/2014 11:13 AM EDT) PTH 75(H) 15 - 65 pg/mL CERNER MILLENNIUM Blood specimen (specimen) 11/12/2014 11:13 AM EDT 11/12/2014 11:31 AM EDT Narrative Resulting Agency Comment Spec In Lab Khris Thornton MD CHEMISTRY ORDERABLES CERNER MILLENNIUM * (ABNORMAL) Basic Metabolic Panel (non-fasting) (11/12/2014 11:13 AM EDT) Glucose Lvl 148 65 - 199 mg/dL CERNER MILLENNIUM Comment:Diabetes: >=200 mg/d L plus symptoms BUN 16 8 - 18 mg/dL CERNER MILLENNIUM Creatinine 0.92 0.70 - 1.20 mg/dL CERNER MILLENNIUM Comment: Please note that the pediatric reference intervals supplied above were not validated at [facility]. Results from pediatric patients should be interpreted in conjunction to the patient's age, height and muscle mass. Sodium 141 135 - 145 mmol/L CERNER MILLENNIUM Potassium 3.5 3.5 - 5.0 mmol/L CERNER MILLENNIUM Comment: Please note: ??Patients with WBC >100,000 may have falsely elevated Potassium levels. ??For accurate Potassium quantification in these patients send serum separator tube (gold top) for subsequent determinations. ??Contact the Clinical Chemistry Laboratory if there are any questions. Chloride 105 98 - 107 mmol/L CERNER MILLENNIUM CO2 22 22 - 31 mmol/L CERNER MILLENNIUM Anion Gap 14 5 - 15 mmol/L CERNER MILLENNIUM Calcium 10.9(H) 8.5 - 10.5 mg/dL CERNER MILLENNIUM Estimated GFR >60 >=60 CERNER MILLENNIUM Comment: This estimated GFR (eGFR) value was calculated using the MDRD equation which has been validated on patients between the ages of 18 and 70. The MDRD should not be used to assess kidney function in patients < 18 years of age or in patients with extremes of body mass, or in patients with acute kidney failure. This value should be multiplied by 1.2 for patients. For further information please copy and paste the following links into your internet browser. [email or web address] [email or web address] Blood specimen (specimen) 11/12/2014 11:13 AM EDT 11/12/2014 11:31 AM EDT Narrative Resulting Agency Comment Spec In Lab Khris Thornton MD CHEMISTRY ORDERABLES Performing Organization Address [facility] Co de Phone Number CERNER MILLENNIUM * (ABNORMAL) Protein/Creatinine Ratio, urine (11/12/2014 11:00 AM EDT) U Creatinine 107 mg/dL CERNER MILLENNIUM U Protein Ran 144(H) 0 - 12 mg/dL CERNER MILLENNIUM Prot/Cre Ratio 1.3 ratio CERNE R MILLENNIUM Urine specimen (specimen) 11/12/2014 11:00 AM EDT 11/12/2014 1:35 PM EDT Narrative Resulting Agency Comment Spec In Lab Khris Thornton MD URINE ORDERABLES Performing Organization Address [facility] de Phone Number CERNER MILLENNIUM * (ABNORMAL) Protein Electrophoresis, urine, random (11/12/2014 11:00 AM EDT) U Protein Ran 144(H) 0 - 12 mg/dL CER NER MILLENNIUM U Albumin 83 % total CERNER MILLENNIUM U Globulin 17 % total CERNER MILLENNIUM U M Band None Detected None Detected % total CERNER MILLENNIUM U Scan See Note CERNER MILLENNIUM Comment:Please see scanned r eport in Chart Review under the D-H Laboratory Heading. Urine specimen (specimen) 11/12/2014 11:00 AM EDT 11/12/2014 1:35 PM EDT Narrative Resulting Agency Comment Spec In Lab Khris Thornton MD URINE ORDERABLES Performing Organization Address [facility] Co de Phone Number CERNER MILLENNIUM documented in this encounter Visit Diagnoses Diagnosis Proteinuria- Primary Essential hypertension Unspecified essential hypertension Hypercalcemia documented in this encounter Care Teams Gas Leak Inspector Helper Relationship Specialty Start Date End Date Trinh Navarrete MD [address] [place] [address] PCP - General 01/11/10 documented as of this encounter
--- OUTSIDE RECORDS SUMMARY | 2023-09-07 11:36 | XMS_ITS | Encounter Summary ---
Author Organization [facility] Address [facility] [place] [address] Care Team Providers Care City Planner Name Role Phone Trinh Coates MD Primary Care Provider [phone] Reason for Visit * Auth/Cert Specialty Diagnoses / Procedures Referred By Diamante marin Referred To Contact Diagnoses Hyperparathyroidism HYPERPARATHYROIDISM Procedures PRO EXPLORE PARATHYROID GLANDS PRG EMG, LARYNX PARATHYROIDECTOMY OR EXPLORATION OF PARATHYROID(S) FACIAL NERVE MONITORING, SETUP LARYNGEAL Referral ID Status Reason Start Date Expiration Date Visits Re quested Visits Authorized [id number] 1 1 Encounter Details Date Type Department Care Team (Late st Contact Info) Description 11/02/2015 7:36 AM EDT Anesthesia Event [place] [address] Maximilian [address] MD [facility] [place] [address] Franky Naranjo MD [facility] [place] [address] Anesthesia Record Procedure Summary Procedure Name Responsible Anesthesiologist Anesthesia Start Time Anesthesia Stop Time PARATHYROIDECTOMY OR EXPLORATION OF PARATHYROID(S) (WRVU 15.6) (Neck) Maximilian Mccord MD 11/02/15 0736 11/02/15 1257 Events Date Time Event Comment 11/02/2015 0704 0736 Start 0740 AN Verify 0740 An Start Data 0746 An Induction 0750 An Intubation 0752 Anesthesia Ready 0829 Procedure Start 1023 Quick Note Post excision P TH returned elevated - surgical incision reopened 1237 Extubation/LMA Out 1240 an stop data 1257 Recovery or ICU Handoff Adriana ent care was transferred to the destination unit staff after review of the patient's medical history, current anesthetic/surgical status and plan, according to the Provider Handoff Checklist. 1257 Stop Meds Name Total Midazolam 2 mg fentaNYL 100 mcg IV Lidocaine 77 mg Propofol 310 mg Rocuronium 50 mg ePHEDrine 15 mg Ondansetron 4 mg Dexamethasone 8 mg Neostigmine 2 mg Glycopyrrolate 0.4 mg HYDROmorphone 1 mg lactated ringers infusion 1,000 mL 1,600 mL * Agents Name O2 Air N2O Sevoflurane (et) * Blood No blood administrations on file. Lines, Drains, and Airways Type Details Placement Removal (RETIRED) Peripheral IV Line - Single Lumen 11/02/15; 0735; metacarpal vein right (top of hand); foyf-kdo-tfvyhr catheter system; 20 gauge; Karlee Camacho RN; intradermal injection, tolerated well, age-appropriate response; 11/03/15; 1436 11/02/15 0735 by Karlee Camacho RN 11/03/15 1436 by Mariel Dill, JENNYFER ETT Mask Ventilation: Ea sy (1); ETT Type: Cuffed, Oral, NIM; ETT Size: 6 mm; Mac Blade: 3; Notes: Pre-O2, Stylette; Attempts: 1; Laryngoscopy Grade: 1; ETT Placement Verified By: Auscultation, Capnometry, Visual; Secured at Teeth: 21 cm; Intubation Injury: Soft Tissue; Inserted by: MD Jose A; Removal Date: 11/02/15; Removal Time: 1237 11/02/15 0750 by Franky Naranjo MD 11/02/15 1237 by Scooby Betancourt MD documented in this encounter Social History Tobacco [...] OR Notes * Anesthesia Postprocedure Evaluation - Maximilian Mccord MD - 11/02/2015 3:27 PM EDT [facility] Department of Anesthesiology Post-procedure Note Patient: Wendy Sandoval Procedure Summary Date Anesthesia Start Anesthesia Stop Room / Location 11/02/15 0736 1257 [facility] OR [facility] / [facility] Procedure Diagnosis Surgeon Responsible Provider PARATHYROIDECTOMY OR EXPLORATION OF PARATHYROID(S) (N/A Neck); FACIAL NERVE MONITORING, SETUP LARYNGEAL (N/A Neck); THYMECTOMY, TRANSCERVICAL APPROACH (N/A Chest) (HYPERPARATHYROIDISM) Valentina Lucas MD [place], James R, MD All Anesthesia Providers: Anesthesiologist: Maximilian Mccord MD Community Health Consultant: Scooby Betancourt MD; Franky Naranjo MD Last (1hr) Vitals: BP 159/83 (11/02/15 1500) Temp 36.6 ??C (97.9 ??F) (11/02/15 1500) Pulse 83 (11/02/15 1500) Resp 17 (11/02/15 1500) SpO2 93 % (11/02/15 1500) Patient Location: PACU/[facility] Level of Consciousness: Awake and Alert Pain Management: Pain Being Addressed PONV: None Cardiovascular Status: At Baseline Respiratory Status: At Baseline Postoperative Fluid Status: Intravascular EUvolemia Possible Anesthetic Complications: NONE apparent at time of evaluation Final Primary Anesthesia Type: General (The anesthetic type performed was the same as planned.) Comments: * Anesthesia Preprocedure Evaluation - Maximilian Mccord MD - 11/01/2015 5:28 PM EDT Pre-Anesthesia Evaluation for: Wendy Sandoval a 50 y.o. female. Procedure(s): PARATHYROIDECTOMY OR EXPLORATION OF PARATHYROID(S) FACIAL NERVE MONITORING, SETUP LARYNGEAL Patient Active Problem List Diagnosis ??? Obstructive sleep apnea (adult) (pediatric) ??? OA (osteoarthritis) ??? Overweight(278.02) ??? Hypertension ??? Depression Past Medical History Diagnosis Date ??? Fibrocystic breast determined by biopsy ??? Hyperlipidemia ??? Hypertension ??? Impaired fasting glucose ??? Obstructive sleep apnea on CPAP ??? Proteinuria Past Surgical History Procedure Laterality Date ??? Breast biopsy Right 11/01 ??? Umbilical hernia repair ??? Hand surgery Right ??? Shoulder surgery Left ??? section x 2 Social History Substance Use Topics ??? Smoking [...] or weight on file to calculate BMI. Anesthesia Physical Exam Anesthesia Plan: ASA 2 general, with a(n) intravenous induction 50 F w PMH of JACQUELYN on CPAP, obesity, HTN, depression, psorasis and primary hyperparathyroidism who presents for parathyroidectomy. Allergies: Penicillin -> thrush, Sertraline -> exacerbates psorasis Medications: - DILTiazem (CARDIZEM CD) 240 mg qd - furosemide (LASIX) 20 mg prn - norethindrone (AYGESTIN) 5 mg qd - valsartan (DIOVAN) 160 mg qd - terbinafine (LAMISIL) 250 mg qd - fluoxetine (PROZAC) 40 mg qd - simvastatin (ZOCOR) 10 mg qhs Labs notable for WBC 10.4, Plt 374, Calcium 11.3 No prior problems with anesthesia Plan: GA c neuromonitoring endotracheal tube. IV induction. Standard ASA monitors. Risks and benefits discussed. All of patients questions answered. Patient understands and agrees toproceed as planned. Region - Other Informed Consent: Anesthetic plan and risks discussed with patient. Plan discussed with resident. PAT Staff Note documented in this encounter Plan of Treatment Upcoming Encounters Date Type Department Care Team (Late st Contact Info) Description 01/22/2024 10:30 AM EST Appointment Mammography/[place] [address] Ladi Mendosa MD [facility] [address] HEMATOLOGY/[place] [address] 01/30/2024 11:30 AM EST Office Visit Dermatology at [facility] [address] [place] [phone] Nilda Luis MD [facility] [address] [place] [address] 02/15/2024 9:30 AM EST Appointment [place] [address] [place] [address] documented as of this encounter Visit Diagnoses Not on filedocumented in this encounter Administered Medications Inactive Administered Medications - up to 3 most recent administrations Medication Order MAR Action Action Date Dose Rate Site dexamethasone (DECADRON) injection PRN, Starting on Sun11/02/15 at 0811, Until Sun11/02/15 at 1257, Anesthesia Intra-op, Routine Given 11/02/2015 8:11 AM EDT 8 mg ePHEDrine 5 mg/mL multi-dose injection PRN, Starting on Sun11/02/15 at 0824, Until Sun11/02/15 at 1257, Anesthesia Intra-op, Routine Given 11/02/2015 8:33 AM EDT 10 mg Given 11/02/2015 8:24 AM EDT 5 mg fentaNYL 50 mcg/mL multi-dose injection PRN, Starting on Sun11/02/15 at 0746, Until Sun11/02/15 at 1257, Pain, Anesthesia Intra-op, Routine Given 11/02/2015 7:46 AM EDT 100 mcg glycopyrrolate (ROBINUL) multi-dose injection PRN, Starting on Sun11/02/15 at 1001, Until Sun11/02/15 at 1257, Anesthesia Intra-op, Routine Given 11/02/2015 10:01 AM EDT 0.4 mg HYDROmorphone (DILAUDID) injection PRN, Starting on Sun11/02/15 at 1004, Until Sun11/02/15 at 1257, Pain, Anesthesia Intra-op, Routine Given 11/02/2015 11:51 AM EDT 0.2 mg Given 11/02/2015 10:33 AM EDT 0.4 mg Given 11/02/2015 10:04 AM EDT 0.4 mg lactated ringers infusion 1,000 mL 1,000 mL, at 100 mL/hr, Intravenous, CONTINUOUS, Starting on Sun11/02/15 at 0745, Until Sun11/02/15 at 1334, Day of Surgery (Day of Procedure) New Bag 11/02/2015 9:49 AM EDT New Bag 11/02/2015 7:45 AM EDT 1,000 mLs 100 mL/hr lidocaine (PF) (XYLOCAINE) 100 mg/5 mL (2 %) injection PRN, Starting on Sun11/02/15 at 1002, Until Sun11/02/15 at 1257, Anesthesia Intra-op, Routine Given 11/02/2015 10:02 AM EDT 77 mg midazolam (PF) (VERSED) 1 mg/mL multi-dose injection PRN, Starting on Sun11/02/15 at 0734, Until Sun11/02/15 at 1257, Sleep, Anesthesia Intra-op, Routine Given 11/02/2015 7:34 AM EDT 2 mg neostigmine (PROSTIGMINE) multi-dose injection PRN, Starting on Sun11/02/15 at 1001, Until Sun11/02/15 at 1257, Anesthesia Intra-op, Routine Given 11/02/2015 10:01 AM EDT 2 mg ondansetron (ZOFRAN) injection PRN, Starting on Sun11/02/15 at 1001, Until Sun11/02/15 at 1257, Nausea, Anesthesia Intra-op, Routine Given 11/02/2015 10:01 AM EDT 4 mg propofol (DIPRIVAN) 10 mg/mL bolus injection (Anesthesia) PRN, Starting on Sun11/02/15 at 0746, Until Sun11/02/15 at 1257, Anesthesia Intra-op Given 11/02/2015 12:30 PM EDT 10 mg Given 11/02/2015 10:45 AM EDT 30 mg Given 11/02/2015 10:16 AM EDT 30 mg rocuronium (ZEMURON) multi-dose injection PRN, Starting on Sun11/02/15 at 0746, Until Sun11/02/15 at 1257, Anesthesia Intra-op, Routine Given 11/02/2015 7:46 AM EDT 50 mg documented in this encounter Care Teams City Planner Relationship Specialty Start Date End Date Trinh Coates MD [address] [place] [address] PCP - General 01/11/10 documented as of this encounter
--- OUTSIDE RECORDS SUMMARY | 2023-09-07 11:36 | XMS_ITS | Encounter Summary ---
Author Organization [facility] Address [facility] [place] [address] Care Team Providers Care Housing Court Judge Name Role Phone Trinh Coates MD Primary Care Provider [phone] Reason for Visit * Reason Comments Psoriasis Encounter Details Date Type Department Care Team (Late st Contact Info) Description 03/15/2013 11:15 AM EST Office Visit Dermatology at [facility] [address] [place] [address] Ernestine Gaines MD [facility] [place] [address] Psoriasis (Primary Dx) Discharge Disposition: Home Social History Tobacco Use Types Packs/Day Years Used Date Smoking Tobacco: Former Sex and Gender Information Value Date Recorded Sex Assigned at Not on file Gender Identity Not on file Sexual Orientation Not on file documented as of this encounter Progress Notes * Ernestine Gaines MD - 03/15/2013 11:29 AM EST DERMATOLOGY New Patient Date of service: 03/15/2013 Wendy Sandoval : 1965 Provider: Ernestine Gaines MD Chief Complaint/problem. Psoriasis HPI Wendy Sandoval is a 47 y.o. year old female. This is a new patient to me. Referred by PCP for treatment options. Psoriasis since age 17. Worst areas elbows, knees and hands. Past treatments limited to topicals currently using Triamcinolone and has used Dovonex in the past. Dovonex not helpful. Patient denies joint pain. Patient feels psoriasis flares with menses. Left shoulder surgery one weekago on rotator cuff. Patient is currently talking oral Lamisil for fungal infection left thumb. PROBLEM LIST: hypertension depression MEDS: No current outpatient prescriptions on file prior to visit. ADR: Allergies Allergen Reactions ??? 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 EXAM General: NAD, pleasant, cooperative Skin: Skin examination of Face, back, abdomen, right arm, bilateral hands, bilateral legs and feet. Significant skin findings: [place] scaling papules, grouped on dorsum of hands, elbows, knees. Erythema is moderate The amount of scale is mild Nails: uninvolved The worst areas of psoriasis for this patient are knees, elbows and hands ASSESSMENT/PLAN: 1. Mild psoriasis: reviewed diagnosis with patient and counseled on etiology and pathogenesis. Discussed that there is often a genetic component, and there are also triggers (stress, medications, alcohol, etc). Discussed that many therapeutic options are available, including: ?? Topical Steroids ?? Topical Vitamin D analogues (Calcipotriene) - has tried, not helpful. ? Light treatments: nbUVB - far from treatment sites ? Oral methotrexate ? Injectable biologic agents including Enbrel, Humira, Stelara, Remicaide - she is not interested in biologic treatment. After reviewing risks and benefits of each, the patient agreed to start therapy with Clobetasol cream 2 weeks on and 2 weeks off. SPots only. I cautioned regarding atrophy. I also discussed low dose methotrexate as an options, but her limited disease seems most appropriate for topical therapy. She will return in 4 months for check/ follow-up to assess response. Note Initiated by: CORIN DE LA ROSA LPN I performed the visit service though my nurse assisted me by scribing the note. I reviewed and edited this note above, a scribed service performed by my nurse, and on closure of this note I agree with the accuracy of the documentation in this encounter. RTC: 4 months Ernestine Gaines MD Section of Dermatology [facility] documented in this encounter Plan of Treatment Upcoming Encounters Date Type Department Care Team (Late st Contact Info) Description 01/22/2024 10:30 AM EST Appointment Mammography/[place] [phone] Ladi Mendosa MD [facility] HEMATOLOGY/[place] [address] 01/30/2024 11:30 AM EST Office Visit Dermatology at [address] [place] [phone] Nilda Luis MD [facility] [address] [place] [address] 02/15/2024 9:30 AM EST [place] [phone] [place] [address] documented as of this encounter Visit Diagnoses Diagnosis Psoriasis- Primary Other psoriasis documented in this encounter Care Teams Housing Court Judge Relationship Specialty Start Date End Date Trinh Coates MD [facility] [address] [place] [address] PCP - General 01/11/10 documented as of this encounter
--- OUTSIDE RECORDS SUMMARY | 2023-09-07 11:37 | XMS_ITS | Referral Summary ---
Author Organization [facility] Address [address] [place] [address] Care Team Providers Care Waxed Bag Machine Operator Name Role Phone Trinh Coates MD Primary Care Provider [phone] Social History Tobacco Use Types Packs/Day Years Used Date Smoking Tobacco: Never Assessed Interpersonal Safety Answer Date Record ed Physically Hurt Never 09/21/2019 Verbally Threaten Not on file 09/21/2019 Sex and Gender Information Value Date Recorded Sex Assigned at Not on file Gender Identity Not on file Sexual Orientation Not on file Plan of Treatment Not on file Procedures Procedure Name Priority Date/Time Associated Diagnosis Comments HEPATITIS C AB W REFLEX TO HCV RNA BY PCR Routine 01/31/2021 10:05 EST from Last 3 Months or Most Recently Relevant to Health Maintenance Results * HEPATITIS C AB W REFLEX TO HCV RNA BY PCR (01/31/2021 10:05 EST) Hep C Antibody Negative Negative 02/01/2021 9:49 EST [facility] Blood VENOUS BLOOD / Unknown 01/31/2021 10:05 EST 01/31/2021 21:04 EST Provider Outr Resulting Lab CHEMISTRY & BLOOD GAS ORDERABLES [facility] [address] [place] [address] from Last 3 Months or Most Recently Relevant to Health Maintenance Care Teams Waxed Bag Machine Operator Relationship Specialty Start Date End Date Trinh Coates MD [address] [phone] PCP - General 12/02/09
--- OUTSIDE RECORDS SUMMARY | 2023-09-07 11:37 | XMS_ITS | Encounter Summary ---
Author Organization [facility] Address [address] [place] [address] Care Team Providers Care Custom Harvester Name Role Phone Trinh Navarrete MD Primary Care Provider [phone] Encounter Details Date Type Department Care Team (Late st Contact Info) Description 01/26/2014 Results Only [facility] [phone] Cece Harrison MD [facility] [facility] [address] [place], [place] [id number] Social History Tobacco Use Types Packs/Day Years Used Date Smoking Tobacco: Never Assessed Sex and Gender Information Value Date Recorded Sex Assigned at Not on file Gender Identity Not on file Sexual Orientation Not on file documented as of this encounter Plan of Treatment Not on file documented as of this encounter Procedures Procedure Name Priority Date/Time Associated Diagnosis Comments SURGICAL PATHOLOGY Routine 01/26/2014 15 :26 EST documented in this encounter Results * SURGICAL PATHOLOGY (01/26/2014 15:26 EST) Pathology Report: SURGICAL PATHOLOGY REPORT Reports generated via electronic interface contain original data; however they are lacking the format of the original report. Caution should be taken when reading/interpretin g unformatted reports. Name: ? RUBEN ARRIAGA ? Accession #: ? [id number] ? : ? 1965 (Age: 48) ??F ? Collect Date: ? 01/26/2014 ? Location: ? [facility] ? Receive Date: ? 01/26/2014 ? Provider: CECE HARRISON MD Copy to: TRINH NAVARRETE MD ? Final Pathologic Diagnosis: A. DUODENUM BIOPSY: - ??No specific pathologic features. B. STOMACH, POLYP BIOPSY: - ??Gastric body type mucosa with mild reactive gastropathy. - ??Deeper levels examined. C. ESOPHAGUS, GASTROESOPHAGEAL JUNCTION, BIOPSY: - ??Junctional type mucosa with no specific pathologic features. Document reviewed and electronically signed by: TAVON PIERCE MD Report ??Date: 01/28/2014 12:59 By the signature above, the attending physician certifies that he/she has personally conducted a gross and/or microscopic examination of the described specimens and rendered or confirmed the above diagnosis. Specimen(s) Received: A. ?Bx duodenum B. ? Gastric polyp C. ? Bx GE junction Clinical History: Abdominal pain, bloating Gross Description: A. ?Received in formalin labelled with proper patient identification (initials G., C.) and 1. bx duodenum are two pink-caputo tissues (0.2 x 0.2 x 0.1 cm and 0.5 x 0.2 x 0.2 cm). Entirely submitted in A1. B. ?Received in formalin labelled with proper patient identification (initials G., C.) and 2. gastric polyp is a single pink-caputo tissue fragment (0.4 x 0.2 x 0.2 cm). Submitted intact in B1. C ?Received in formalin labelled with proper patient identification (initials G., C.) and 3. bx GE junction are three pink-caputo tissues (0.1 x 0.1 x 0.1 cm, to 0.5 x 0.2 x 0.1 cm). Entirely submitted in C1. Dr. Edward 01/26/2014 07:52 PM End of Report [facility] 01/26/2014 15:2 6 EST 01/26/2014 15:26 EST Cece Harrison MD PATHOLOGY ORDERMonserrat ESQUIVEL [facility] [address] [place] [address] documented in this encounter Visit Diagnoses Not on filedocumented in this encounter Care Teams Custom Harvester Relationship Specialty Start Date End Date Trinh Navarrete MD [address] [place] [phone] PCP - General 12/02/09 documented as of this encounter
--- OUTSIDE RECORDS SUMMARY | 2023-09-07 11:37 | XMS_ITS | Encounter Summary ---
Author Organization [facility] Address [address] [place] [address] Care Team Providers Care Nutter Up Name Role Phone Trinh Coates MD Primary Care Provider [phone] Encounter Details Date Type Department Care Team (Late st Contact Info) Description 01/29/2020 Lab Requisition [facility] Pathology & Laboratory Medicine - [facility] [address] [place], [place] [address] Outr Resulting Lab, Provider Social History Tobacco Use Types Packs/Day Years [...] Procedure Name Priority Date/Time Associated Diagnosis Comments SPEP, INCLUDES QUANTITATION OF MONOCLONAL SPIKE Routine 01/29/2020 10:21 EST documented in this encounter Results * (ABNORMAL) SPEP, INCLUDES QUANTITATION OF MONOCLONAL SPIKE (01/29/2020 10:21 EST) Total Protein 6.9 6.3 - 8.2 g/dL 01/30/2020 12:32 EST [facility] Albumin % 58.6 55.8 - 66.1 % 01/30/2020 12:32 EST [facility] Alpha-1 % 4.9 2.9 - 4.9 % 01/30/2020 12:32 EST [facility] Alpha-2 % 12.2(H) 7.1 - 11.8 % 01/30/2020 12:32 EST [facility] Beta % 12.0 8.4 - 13.1 % 01/30/2020 12:32 EST [facility] Gamma % 12.3 11.1 - 18.8 % 01/30/2020 12:32 EST [facility] SPEP Comment No apparent monoclonal protein seen on serum electrophoresis 01/30/2020 12:32 EST [facility] Comment:See scanned/suppleme ntary report. Blood VENOUS BLOOD / Unknown 01/29/2020 10:21 EST 01/29/2020 16:23 EST Provider Outr Resulting Lab CHEMISTRY & BLOOD GAS ORDERABLES [facility] [address] [place] [address] documented in this encounter Visit Diagnoses Not on filedocumented in this encounter Care Teams Nutter Up Relationship Specialty Start Date End Date Trinh Coates MD [address] [place] [phone] PCP - General 12/02/09 documented as of this encounter
--- OUTSIDE RECORDS SUMMARY | 2023-09-07 11:37 | XMS_ITS | Encounter Summary ---
Author Organization [facility] Address [address] [place] [address] Care Team Providers Care Dehydrating Press Operator Name Role Phone Trinh Navarrete MD Primary Care Provider [phone] Encounter Details Date Type Department Care Team (Late st Contact Info) Description 03/07/2013 Results Only [facility] [phone] Becki Camp MD [address] [place] [address] Social History Tobacco Use Types Packs/Day Years Used Date Smoking Tobacco: Never Assessed Sex and Gender Information Value Date Recorded Sex Assigned at Not on file Gender Identity Not on file Sexual Orientation Not on file documented as of this encounter Plan of Treatment Not on file documented as of this encounter Procedures Procedure Name Priority Date/Time Associated Diagnosis Comments SURGICAL PATHOLOGY Routine 03/07/2013 8:38 EST documented in this encounter Results * SURGICAL PATHOLOGY (03/07/2013 8:38 EST) Pathology Report: SURGICAL PATHOLOGY REPORT Reports generated via electronic interface contain original data; however they are lacking the format of the original report. Caution should be taken when reading/interpreti ng unformatted reports. Name: ? RUBEN ARRIAGA ? Accession #: ? [id number] ? : ? 1965 (Age: 47) ??F ? Collect Date: ? 03/07/2013 ? Location: ? [facility] ? Receive Date: ? 03/07/2013 ? Provider: RUFINO KANG MD Copy to: TRINH NAVARRETE MD ? Final Pathologic Diagnosis: SUBMITTED LEFT SUBACROMIAL BURSA AND DISTAL CLAVICLE, EXCISION: - ??Bone and cartilage with remodeling changes and features suggestive of osteoarthritis. ?? - ??Benign fibrovascular-adip ose tissue. Document reviewed and electronically signed by: Geovanni Juarez MD Report ??Date: 03/14/2013 16:29 By the signature above, the attending physician certifies that he/she has personally conducted a gross and/or microscopic examination of the described specimens and rendered or confirmed the above diagnosis. Specimen(s) Received: Subacromial bursa and distal clavicle (left) Clinical History: Chronic rotator cuff impingement with A-C joint arthritis and rotator cuff tendonitis + sub deltoid bursitis Gross Description: ? Received in formalin labelled with proper patient identification (initials G, C) and 1. Left subacromial bursa and distal clavicle is an irregularly shaped piece of bone (2.1 x 1.5 cm x 1.1 cm in greatest length). There is also a separate white focally light yellow soft fibrous-like piece of tissue (1.8 x 1.2 x 0.6 cm). ?The resection margin of the bone is smooth, caputo and white. The opposite end of the bone is slightly convex, rough to focally smooth, and santamaria-white with a scanty amount of loosely adherent caputo-white fibrous tissue. ??The bone has a hard santamaria-white cut surface. ?One surface of the separately received soft fibrous-like piece of tissue is smooth, while the opposite surface is slightly rough. Wallcovering Texturer sections of the specimen are submitted as follows: BLOCK HORTA 1- ??full thickness section of bone, submitted for decalcification 2- ??two sections of separately received soft fibrous white piece of tissue Jarod Sabillon 03/10/2013 10:21 AM End of Report [facility] 03/07/2013 8:38 EST 03/07/2013 8:38 EST Rufino Kang MD PATHOLOGY ORDERABLE S [facility] [address] [place] [address] documented in this encounter Visit Diagnoses Not on filedocumented in this encounter Care Teams Dehydrating Press Operator Relationship Specialty Start Date End Date Trinh Navarrete MD [address] [place] [phone] PCP - General 12/02/09 documented as of this encounter
--- OUTSIDE RECORDS SUMMARY | 2023-09-07 11:37 | XMS_ITS | Encounter Summary ---
Author Organization [facility] Address [address] [place] [address] Care Team Providers Care Agricultural Equipment Sales Manager Name Role Phone Trinh Coates MD Primary Care Provider [phone] Encounter Details Date Type Department Care Team (Latest Contact Info) Description 12/11/2013 11:56 EDT - 12/11/2013 23:59 EDT Hospital Encounter [address] [address] Unknown, Provider, Discharge Disposition: Home or Self Care Social History Tobacco Use Types Packs/Day Years Used Date Smoking Tobacco: Never Assessed Sex and Gender Information Value Date Recorded Sex Assigned at Not on file Gender Identity Not on file Sexual Orientation Not on file documented as of this encounter Discharge Disposition Disposition Code Departure Means Destination Home or Self [facility] documented in this encounter Plan of Treatment Not on file documented as of this encounter Visit Diagnoses Not on filedocumented in this encounter Care Teams Agricultural Equipment Sales Manager Relationship Specialty Start Date End Date Trinh Coates MD [address] [place] [phone] PCP - General 12/02/09 documented as of this encounter
--- OUTSIDE RECORDS SUMMARY | 2023-09-07 11:37 | XMS_ITS | Encounter Summary ---
Author Organization [facility] Address [address] [place] [address] Care Team Providers Care Bone Char Kiln Tender Name Role Phone Unknown, Provider Primary Care Provider Encounter Details Date Type Department Care Team (Late st Contact Info) Description 04/23/2002 Results Only [facility] [place] [address] [place] [address] Trinh Navarrete MD [address] [phone] Social History Tobacco Use Types Packs/Day Years Used Date Smoking Tobacco: Never Assessed Sex and Gender Information Value Date Recorded Sex Assigned at Not on file Gender Identity Not on file Sexual Orientation Not on file documented as of this encounter Plan of Treatment Not on file documented as of this encounter Procedures Procedure Name Priority Date/Time Associated Diagnosis Comments CYTOPATHOLOGY Routine 04/23/2002 0:00 EST documented in this encounter Results * CYTOPATHOLOGY (04/23/2002 0:00 EST) Pathology Report: CYTOPATHOLOGY REPORT Reports generated via electronic interface contain original data; however they are lacking the format of the original report. Caution should be taken when reading/interpreti ng unformatted reports. Name: ? RUBEN ARRIAGA ? Accession #: ? [id number] : ? 1965 (Age: 36) ??F ?Collect Date: ? 04/23/2002 Location: ? [facility] ? Receive Date: ? 04/25/2002 Provider: ?TRINH NAVARRETE MD Copy to: ? Specimen/Source: ?ThinPrep Pap Test, Cervix/Endocervix Last Menstrual Period: ? 03/26/02 Hormonal/Contracep tive Status: ? Tubal ligation: 1993 Other: ? Additional clinical information: L breast bx 05/24/99. 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 HPVA - HPV testing requested if ASC-US on the current ThinPrep Pap test. ? SPECIMEN ADEQUACY ? Satisfactory for Evaluation - transformation zone component present GENERAL CATEGORIZATION ? Negative for Intraepithelial Lesion or Malignancy ? Document reviewed and electronically signed by: ? MESERET Alcantar(ASCP) ? Report Date: ??04/28/2002 12:24 End of Report [facility] 04/23/2002 04/25/2002 Trinh Navarrete MD PATHOLOGY ORDERABLES Performing Organization Address City/State/[facility] Co de Phone Number [facility] [address] [place] [address] documented in this encounter Visit Diagnoses Not on filedocumented in this encounter Care Teams Bone Char Kiln Tender Relationship Specialty Start Date End Date Unknown, Provider, PCP - General 02/22/09 12/01/09 documented as of this encounter
--- OUTSIDE RECORDS SUMMARY | 2023-09-07 11:37 | XMS_ITS ---
[place] [address] Care Team Providers Care Ware Cleaner Name Role Phone Trinh Coates MD Primary Care Provider [phone] Status:Ineligible (Enrolling) Start date:07/13/2023 Enrollment reason:Ineligible - Insurance Mandate Linked medications:ustekinumab (Active) Linked problems:Psoriasis (Active) Continued Care and Services Coordination
--- OUTSIDE RECORDS SUMMARY | 2023-09-07 11:37 | XMS_ITS | Encounter Summary ---
Author Organization [facility] Address [facility] [place] [address] Care Team Providers Care Software Test Manager Name Role Phone Trinh Coates MD Primary Care Provider [phone] Encounter Details Date Type Department Care Team (Late st Contact Info) Description 05/20/2010 [place] [phone] Ira Emmanuel MD [facility] [place] [address] Social History Tobacco Use Types Packs/Day Years Used Date Smoking Tobacco: Never Assessed Sex and Gender Information Value Date Recorded Sex Assigned at Not on file Gender Identity Not on file Sexual Orientation Not on file documented as of this encounter Plan of Treatment Upcoming Encounters Date Type Department Care Team (Late st Contact Info) Description 01/22/2024 10:30 AM EST Appointment Mammography/[place] [phone] Ladi Mendosa MD [facility] [place] [address] 01/30/2024 11:30 AM EST Office Visit Dermatology at [facility] [address] [place] [phone] Nilda Luis MD [facility] [address] [place] [address] 02/15/2024 9:30 AM EST Appoint[place] [phone] [place] [address] documented as of this encounter Procedures Procedure Name Priority Date/Time Associated Diagnosis Comments FILM LIBRARY STORAGE ONLY MAMMO Routine 05/20/2010 9:20 AM EDT documented in this encounter Results * Film Library- Storage only Mammo (05/20/2010 9:20 AM EDT) 05/20/2010 9:20 AM EDT Narrative RAD - 10/15/2013 11:28 AM EDT This is a non-reportable exam. Procedure Note Venkata Clark - 10/15/2013 This is a non-reportable exam. Ira Emmanuel MD IMG FILM LIBR SHERIDAN ORDERABLES [facility] [address] [facility] [place] [address] documented in this encounter Visit Diagnoses Not on filedocumented in this encounter Care Teams Software Test Manager Relationship Specialty Start Date End Date Trinh Coates MD Abis[address]ADO [address] [place] [address] PCP - General 01/11/10 documented as of this encounter
--- OUTSIDE RECORDS SUMMARY | 2023-09-07 11:37 | XMS_ITS | Encounter Summary ---
Author Organization [facility] Address [address] [place] [address] Care Team Providers Care Wool Merchant Name Role Phone Trinh Coates MD Primary Care Provider Encounter Details Date Type Department Care Team (Late st Contact Info) Description 01/31/2021 Lab Requisition [facility] Pathology & Laboratory Medicine - [facility] [address], [place] [id number] Outr Resulting Lab, Provider Social History Tobacco [...] RNA BY PCR Routine 01/31/2021 10:05 EST documented in this encounter Results * HEPATITIS C AB W REFLEX TO HCV RNA BY PCR (01/31/2021 10:05 EST) Hep C Antibody Negative Negative 02/01/2021 9:49 EST [facility] Blood VENOUS BLOOD / Unknown 01/31/2021 10:05 EST 01/31/2021 21:04 EST Provider Outr Resulting Lab CHEMISTRY & BLOOD GAS ORDERABLES [facility] [address] [place] [address] documented in this encounter Visit Diagnoses Not on filedocumented in this encounter Care Teams Wool Merchant Relationship Specialty Start Date End Date Trinh Coates MD [address] [place] [phone] PCP - General 12/02/09 documented as of this encounter
--- OUTSIDE RECORDS SUMMARY | 2023-09-07 11:37 | XMS_ITS | Encounter Summary ---
Author Organization [facility] Address [address] [place] [address] Care Team Providers Care Silverware Buffer Name Role Phone Trinh Navarrete MD Primary Care Provider [phone] Encounter Details Date Type Department Care Team (Late st Contact Info) Description 09/12/2010 Results Only [facility] Laboratory Services - [facility] ([facility] [address] [place], [place] [phone] Carlos Trevino MD [address] [place] [address] Social History Tobacco Use Types Packs/Day Years Used Date Smoking Tobacco: Never Assessed Sex and Gender Information Value Date Recorded Sex Assigned at Not on file Gender Identity Not on file Sexual Orientation Not on file documented as of this encounter Plan of Treatment Not on file documented as of this encounter Procedures Procedure Name Priority Date/Time Associated Diagnosis Comments SURGICAL PATHOLOGY Routine 09/12/2010 0:00 EDT documented in this encounter Results * SURGICAL PATHOLOGY (09/12/2010 0:00 EDT) Pathology Report: SURGICAL PATHOLOGY REPORT ? Reports generated via electronic interface contain original data; ? however they are lacking the format of the original report. ? Caution should be taken when reading/interpreti ng unformatted reports. ? Name: ? GUIDOSH, RUBEN ? Accession #: ? [id number] ? : ? 1965 (Age: 45) ??F ? Collect Date: ? 09/12/2010 ? Location: ? [facility] ? Receive Date: ? 09/12/2010 ? Provider: ACRLOS TREVINO MD ? Copy to: TRINH NAVARRETE MD ? Final Pathologic Diagnosis: ? A. ?Rectum, biopsies: ? 1. ?Hyperplastic polyp and lymphoglandular complex. ? B. ?Anus, external hemorrhoidal skin tags, excision: ? 1. ?Hemorrhoids. ? Document reviewed and electronically signed by: ? RAUL S JACQUELIN MD ? Report ??Date: 09/14/2010 15:11 ? By the signature above, the attending physician certifies that he/she has ? personally conducted a gross and/or microscopic examination of the described ? specimens and rendered or confirmed the above diagnosis. ? Specimen(s) Received: ? A. ?Bx rectum ? B. ? Ext hemorrhoidal skin tags ? Clinical History: ? Constipation, rectal bleeding, FH. Colon Ca. External hemorrhoid skin tags ? Gross Description: ? Received in formalin labelled Guidosh, Ruben and bx rectum are six ?? caputo-pink irregular soft tissue fragments ranging from 0.2 x 0.2 x 0.1 cm to 0.3 x 0.3 x 0.2 cm. ??The specimen is entirely submitted as (A1) and (A2). ? Received in formalin labelled Lori, Ruben and external hemorrhoids are four caputo-pink, smooth to wrinkled portions of mucosa and underlying soft tissue ranging from 1.2 x 0.7 x 0.5 cm to 1.8 x 1.8 x 0.5 cm. ??The cut surfaces are ? caputo-pink, focally hemorrhagic and diffusely edematous. ??No definitive nodules ?? are present. ??A community relations representative section of each tissue is submitted as (B1) and ?? (B2). (Kevyn Domínguez)/mpl ? End of Report ? [facility] 09/12/2010 09/12/2010 8:2 8 EDT Carlos Trevino MD PATHOLOGY ORDERABLE S [facility] [address] [place] [address] documented in this encounter Visit Diagnoses Not on filedocumented in this encounter Care Teams Silverware Buffer Relationship Specialty Start Date End Date Trinh Navarrete MD [address] [place] [phone] PCP - General 12/02/09 documented as of this encounter
--- OUTSIDE RECORDS SUMMARY | 2023-09-07 11:37 | XMS_ITS | Encounter Summary ---
Author Organization [facility] Address [address] [place] [address] Care Team Providers Care Pole Sander Operator Name Role Phone Trinh Coates MD Primary Care Provider [phone] Encounter Details Date Type Department Care Team (Late st Contact Info) Description 03/14/2021 Lab Requisition [facility] Pathology & Laboratory Medicine - [facility] [address] [place] [address] Franco Mota MD [address] [place] [address] [address] [place], [place] [phone] Personal history of colonic polyps; Encounter for screening for malignant neoplasm of colon Social History Tobacco Use Types Packs/Day Years [...] Priority Date/Time Associated Diagnosis Comments SURGICAL PATHOLOGY Today 03/14/2021 10 :21 EST Personal history of colonic polyps Encounter for screening for malignant neoplasm of colon documented in this encounter Results * SURGICAL PATHOLOGY (03/14/2021 10:21 EST) Note to Patient The following pathology results have been interpreted by your pathologist and may be available to you before your health provider has had the opportunity to review them. Please allow time for your provider to receive these results and explore management options, if applicable. 03/15/2021 16:09 [facility] Final Diagnosis A. COLON, TRANSVERSE, POLYP, BIOPSY: - Consistent with sessile serrated adenoma. - Deeper sections x3 examined. B. COLON, TRANSVERSE, POLYP, BIOPSY: - Benign submucosal leiomyoma. - Deeper sections x3 examined. C. COLON, DESCENDING, POLYPS X2, BIOPSY: - Colonic mucosa with no significant diagnostic abnormalities. - No definite polyp identified. - Benign reactive lymphoid aggregates noted. - Deeper sections x3 examined. D. COLON, SIGMOID, POLYP, BIOPSY: - Tubular adenoma. 03/15/2021 16:09 [facility] Attestation By the signature below, the attending physician certifies that they have 1) personally conducted a gross and/or microscopic examination of the described specimen(s), and/or personally interpreted the results of laboratory testing of the described specimen(s), and 2) personally rendered or confirmed the above diagnosis. 03/15/2021 16:09 [facility] at 1609 Clinical History Colon cancer screening; history of polyps; family history of colorectal cancer 03/15/2021 16:09 [facility] Gross Description A. Received in formalin labelled with proper patient identification (initials G, C) and 1. Transverse colon polyp are 3 fragments of pink-caputo soft tissue (each averaging 0.2 x 0.2 x 0.2 cm). The specimen is entirely submitted in A1. B. Received in formalin labelled with proper patient identification (initials G, C) and 2. Transverse colon polyp is a single fragment of pink-caputo soft tissue (is 0.4 x 0.3 x 0.2 cm). The specimen is entirely submitted in B1. C. Received in formalin labelled with proper patient identification (initials G, C) and descending colon polyps x2 are 2 fragments of caputo soft tissue (0.4 x 0.3 x 0.2 cm). The specimen is entirely submitted in C1. D. Received in formalin labelled with proper patient identification (initials G, C) and sigmoid colon polyp is a single fragment of caputo-yellow soft tissue (0.6 x 0.4 x 0.2 cm). The specimen is entirely submitted in D1. STEVAN KOROMA(ASCP) 03/14/2021 16:46 03/15/2021 16:09 EST [facility] Performing Lab [facility] 03/15/2021 16:09 EST [facility] Scanned Images 03/15/2021 16:09 EST [facility] Tissue POLYP OF COLON / Unknown 03/14/2021 10:21 EST 03/14/2021 16:23 EST Tissue specimen (specimen) POLYP OF COLON / Unknown 03/14/2021 10:21 EST 03/14/2021 16:23 EST Tissue specimen (specimen) POLYP OF COLON / Unknown 03/14/2021 10:21 EST 03/14/2021 16:23 EST Tissue specimen (specimen) POLYP OF COLON / Unknown 03/14/2021 10:21 EST 03/14/2021 16:23 EST Franco Mota MD PATHOLOGY ORDERA [facility] [address] [place] [address] documented in this encounter Visit Diagnoses Diagnosis Personal history of colonic polyps Encounter for screening for malignant neoplasm of colon Special screening for malignant neoplasms, colon documented in this encounter Care Teams Pole Sander Operator Relationship Specialty Start Date End Date Trinh Coates MD [address] [place] [phone] PCP - General 12/02/09 documented as of this encounter
--- OUTSIDE RECORDS SUMMARY | 2023-09-07 11:37 | XMS_ITS | Encounter Summary ---
Author Organization [facility] Address [address] [place] [address] Care Team Providers Care Rehabilitation Manager Name Role Phone Trinh Coates MD Primary Care Provider [phone] Encounter Details Date Type Department Care Team (Late st Contact Info) Description 08/01/2021 Lab Requisition [facility] Pathology & Laboratory Medicine - [facility] [address] [place], [place] [address] Outr Resulting Lab, Provider Social History Tobacco [...] Name Priority Date/Time Associated Diagnosis Comments PTH INTACT Routine 08/01/2021 11:11 EDT documented in this encounter Results * PTH INTACT (08/01/2021 11:11 EDT) Intact PTH 28 19 - 88 pg/mL 08/02/2021 9:16 EDT [facility] Blood VENOUS BLOOD / Unknown 08/01/2021 11:11 EDT 08/01/2021 21:38 EDT Provider Outr Resulting Lab CHEMISTRY & BLOOD GAS ORDERABLES [facility] [address] [place] [address] documented in this encounter Visit Diagnoses Not on filedocumented in this encounter Care Teams Rehabilitation Manager Relationship Specialty Start Date End Date Trinh Coates MD [address] [place] [phone] PCP - General 12/02/09 documented as of this encounter
--- OUTSIDE RECORDS SUMMARY | 2023-09-07 11:37 | XMS_ITS | Encounter Summary ---
Author Organization [facility] Address [address] [place] [address] Care Team Providers Care Glazier Structural Glass Name Role Phone Trinh Coates MD Primary Care Provider [phone] Encounter Details Date Type Department Care Team (Late st Contact Info) Description 12/09/2019 Lab Requisition [facility] Pathology & Laboratory Medicine - [facility] [address], [place] [address] Outr Resulting Lab, Provider Social History Tobacco [...] Procedure Name Priority Date/Time Associated Diagnosis Comments DO NOT ORDER STANDALONE - BROAD COVID TEST Today 12/09/2019 9:58 EDT COVID-19 TESTING Routine 12/09/2019 9:58 EDT documented in this encounter Results * DO NOT ORDER STANDALONE - BROAD COVID TEST (12/09/2019 9:58 EDT) COVID-19 rt-PCR Result NEGATIVE Negative 12/10/2019 23:09 EDT [facility] Comment: 2019-novel Coronavirus (2019-nCoV) not detected by the qRT-PCR assay. Consider testing for other respiratory viruses or re-collecting for 2019-nCoV testing. Note: Optimum timing for peak viral levels during infections caused by 2019-nCoV have not been determined. Collection of multiple specimens from the same patient may be necessary to detect the virus. Limitations Positive results are indicative of active infection with SARS-CoV-2 but do not rule out bacterial infection or co-infection with other viruses. The agent detected may not be the definite cause of disease. In addition, detection of viral RNA may not indicate the presence of infectious virus or that SARS-CoV-2 is the causative agent for clinical symptoms. Negative results do not preclude SARS-CoV-2 infection and should not be used as the sole basis for patient management decisions. Negative results must be combined with clinical observations, patient history, and epidemiological information. False negative results may also occur if amplification inhibitors are present in the specimen or if inadequate numbers of organisms are present in the specimen. Optimum specimen types and timing for peak viral levels during infections caused by SARS-CoV-2 have not been fully determined. Collection of multiple specimens (types and time points) from the same patient may be necessary to detect the virus. The test was validated for use with upper respiratory specimens obtained via nasopharyngeal or oropharyngeal swabs in VTM, UTM, M4, M5, M6, saline, and MTM media. The performance of this test has not been established for other specimens. Specimens collected using other FDA recommended Specimen Collection Materials listed in the FDA COVID-19 Diagnostic [employer] communication (May 15, 2019) are processed with the caveat that they were not all validated for use with this test and the result must be interpreted in this context. Furthermore, a false negative results may occur if a specimen is improperly collected, transported or handled. If the virus mutates in the RT-PCR target region, SARS-CoV-2 may not be detected or may be detected less predictably. Inhibitors or other types of interference may produce a false negative result. An interference study evaluating the effect of common cold medications was not performed. This test is not FDA-cleared but its performance characteristics were established by our CLIA-certified, CAP-accredited, high complexity laboratory in accordance with CLIA regulations, [employer] (CAP) guidelines (May 08, 2019), and FDA guidance (Apr 19, 2019). This test is only for use under the Food and Drug Administration's Emergency Use Authorization. Swab ENTIRE NASOPHARYNX / Unknown 12/09/2019 9:58 EDT 12/09/2019 17:18 EDT Provider Outr Resulting Lab MICROBIOLOGY - GENERAL ORDERABLES [facility] [place], [place] * COVID-19 TESTING (12/09/2019 9:58 EDT) COVID-19 rt-PCR Result NEGATIVE Negative 12/11/2019 2:03 EDT [facility] Comment: 2019-novel Coronavirus (2019-nCoV) not detected by the qRT-PCR assay. Consider testing for other respiratory viruses or re-collecting for 2019-nCoV testing. Note: Optimum timing for peak viral levels during infections caused by 2019-nCoV have not been determined. Collection of multiple specimens from the same patient may be necessary to detect the virus. Limitations Positive results are indicative of active infection with SARS-CoV-2 but do not rule out bacterial infection or co-infection with other viruses. The agent detected may not be the definite cause of disease. In addition, detection of viral RNA may not indicate the presence of infectious virus or that SARS-CoV-2 is the causative agent for clinical symptoms. Negative results do not preclude SARS-CoV-2 infection and should not be used as the sole basis for patient management decisions. Negative results must be combined with clinical observations, patient history, and epidemiological information. False negative results may also occur if amplification inhibitors are present in the specimen or if inadequate numbers of organisms are present in the specimen. Optimum specimen types and timing for peak viral levels during infections caused by SARS-CoV-2 have not been fully determined. Collection of multiple specimens (types and time points) from the same patient may be necessary to detect the virus. The test was validated for use with upper respiratory specimens obtained via nasopharyngeal or oropharyngeal swabs in VTM, UTM, M4, M5, M6, saline, and MTM media. The performance of this test has not been established for other specimens. Specimens collected using other FDA recommended Specimen Collection Materials listed in the FDA COVID-19 [employer] communication (May 15, 2019) are processed with the caveat that they were not all validated for use with this test and the result must be interpreted in this context. Furthermore, a false negative results may occur if a specimen is improperly collected, transported or handled. If the virus mutates in the RT-PCR target region, SARS-CoV-2 may not be detected or may be detected less predictably. Inhibitors or other types of interference may produce a false negative result. An interference study evaluating the effect of common cold medications was not performed. This test is not FDA-cleared but its performance characteristics were established by our CLIA-certified, CAP-accredited, high complexity laboratory in accordance with CLIA regulations, College [employer]ologists (CAP) guidelines (May 08, 2019), and FDA guidance (Apr 19, 2019). This test is only for use under the Food and Drug Administration's Emergency Use Authorization. Performing Lab [facility] 12/11/2019 2:03 EDT [facility] Swab 12/09/2019 9:58 EDT 12/09/2019 17:18 EDT Provider Outr Resulting Lab MICROBIOLOGY - GENERAL ORDERABLES [facility] [address] [place] [address] [facility] [place], [place] documented in this encounter Visit Diagnoses Not on filedocumented in this encounter Care Teams Glazier Structural Glass Relationship Specialty Start Date End Date Trinh Coates MD [address] [place] [phone] PCP - General 12/02/09 documented as of this encounter
--- OUTSIDE RECORDS SUMMARY | 2023-09-07 11:37 | XMS_ITS | Encounter Summary ---
Author Organization [facility] Address [address] [place] [address] Care Team Providers Care Building Custodial Supervisor Name Role Phone Trinh Coates MD Primary Care Provider Reason for Visit * (Routine) - Receiving Office to Obtain Authorization Specialty Diagnoses / Procedures Referred By Diamante marin Referred To Contact Procedures CT OUTSIDE IMAGES NEURO Unknown, Provider, Referral ID Status Reason Start Date Expiration Date Visits Requested Visits Authorized [id number] Receiving Office to Obtain Authorization 9 1 1 Encounter Details Date Type Department Care Team (Late st Contact Info) Description 01/06/2019 - 01/06/2019 23:59 EST Hospital Encounter [facility] Radiology - Main [facility] [address] [place] [address] Social History Tobacco Use Types Packs/Day Years Used Date Smoking Tobacco: Never Assessed Sex and Gender Information Value Date Recorded Sex Assigned at Not on file Gender Identity Not on file Sexual Orientation Not on file documented as of this encounter Plan of Treatment Not on file documented as of this encounter Procedures Procedure Name Priority Date/Time Associated Diagnosis Comments CT OUTSIDE IMAGES NEURO Routine 01/07/2019 22:50 EST documented in this encounter Results * CT OUTSIDE IMAGES NEURO (01/07/2019 22:50 EST) Narrative CESAR - 01/07/2019 22:50 EST This is a non-reportable exam. Him Only No Signature Required IMG OTHER IMAGING ORDERABLES JANICE documented in this encounter Visit Diagnoses Not on filedocumented in this encounter Care Teams Building Custodial Supervisor Relationship Specialty Start Date End Date Trinh Coates MD [address] [place] [address] [phone] PCP - General 12/02/09 documented as of this encounter
--- OUTSIDE RECORDS SUMMARY | 2023-09-07 11:37 | XMS_ITS | Encounter Summary ---
Author Organization [facility] Address [facility] [place] [address] Care Team Providers Care Rehabilitation Program Coordinator Name Role Phone Trinh Coates MD Primary Care Provider [phone] Encounter Details Date Type Department Care Team (Latest Contact Info) Description 10/18/2012 9:15 AM EDT - 10/18/2012 11:59 PM EDT Hospital Encounter XRay at [address] [place] [address] CL[address], [address] BADILLO Discharge Disposition: Home Social History Tobacco Use [...] 01/22/2024 10:30 AM EST Appointment Mammography/[place] [address] Ladi Mendosa MD [facility] HEMATOLOGY/[place] [address] 01/30/2024 11:30 AM EST Office Visit Dermatology at [facility] [address] [place] [phone] Nilda Luis MD [facility] [address] [place] [address] 02/15/2024 9:30 AM EST [place] [address] [place] [address] documented as of this encounter Visit Diagnoses Not on filedocumented in this encounter Care Teams Rehabilitation Program Coordinator Relationship Specialty Start Date End Date Trinh Coates MD [facility] [address] [place] [address] PCP - General 01/11/10 documented as of this encounter
--- OUTSIDE RECORDS SUMMARY | 2023-09-07 11:37 | XMS_ITS | Encounter Summary ---
Author Organization [facility] Address [address] [place] [address] Care Team Providers Care Data Base Design Analyst Name Role Phone Karlos Navarrete MD Primary Care Provider [phone] Encounter Details Date Type Department Care Team (Late st Contact Info) Description 01/06/2013 Results Only [facility]- [facility] [phone] Sony Camp MD [address] [place] [address] Social History Tobacco Use Types Packs/Day Years Used Date Smoking Tobacco: Never Assessed Sex and Gender Information Value Date Recorded Sex Assigned at Not on file Gender Identity Not on file Sexual Orientation Not on file documented as of this encounter Plan of Treatment Not on file documented as of this encounter Procedures Procedure Name Priority Date/Time Associated Diagnosis Comments SURGICAL PATHOLOGY Routine 01/06/2013 15 :38 EST PAP TEST- RESULT ONLY Routine 01/06/2013 0:00 EST documented in this encounter Results * SURGICAL PATHOLOGY (01/06/2013 15:38 EST) Pathology Report: SURGICAL PATHOLOGY REPORT Reports generated via electronic interface contain original data; however they are lacking the format of the original report. Caution should be taken when reading/interpreti ng unformatted reports. Name: ? RUBEN ARRIAGA ? Accession #: ? [id number] ? : ? 1965 (Age: 47) ??F ? Collect Date: ? 01/06/2013 ? Location: ? [facility] ? Receive Date: ? 01/06/2013 ? Provider: SONY CAMP MD Copy to: KARLOS NAVARRETE MD ? Final Pathologic Diagnosis: ENDOMETRIUM, BIOPSY: ? - ??Predominantly blood clot admixed with minute benign endometrial tissue with tubal metaplasia and small fragments of superficial squamous debris. ??See comment. Comment: The amount of endometrial tissue is extremely limited and may not be logistics service representative. ??Clinical correlation is recommended. ??Results were attempted to be communicating to Dr. Camp at 0850 hr on ??01/07/2013. Results were directly communicated to Dr. Camp at 950 hours on 01/07/[address] Santiago 01/07/2013 08:57 AM Document reviewed and electronically signed by: Geovanni Juarez MD Report ??Date: 01/07/2013 16:15 By the signature above, the attending physician certifies that he/she has personally conducted a gross and/or microscopic examination of the described specimens and rendered or confirmed the above diagnosis. Specimen(s) Received: Endometrial biopsy Clinical History: Menorrhagia since April 2012, despite OCPs Gross Description: ? Received in formalin labelled with proper patient identification (initials G, C) and bx endometrial is an aggregate of caputo-brown tissue admixed with red-brown blood clot (3.5 x 2.5 x 0.7 cm). ??Submitted in toto in cassettes 1 and 2. Susana Casey 01/06/2013 04:01 PM End of Report [facility] 01/06/2013 15:3 8 EST 01/06/2013 15:38 EST Sony Camp MD PATHOLOGY ORDERABLES [facility] [address] [place] [address] * PAP TEST- RESULT ONLY (01/06/2013 0:00 EST) Pathology Report: CYTOPATHOLOGY REPORT Reports generated via electronic interface contain original data; however they are lacking the format of the original report. Caution should be taken when reading/interpreti ng unformatted reports. Name: ? RUBEN ARRIAGA ? Accession #: ? [id number] ? : ? 1965 (Age: 47) ??F ?Collect Date: ? 01/06/2013 ? Location: ? [facility] ? Receive Date: ? 01/07/2013 ? Provider: SONY CAMP MD Copy to: KARLOS NAVARRETE MD ? Final Report SPECIMEN ADEQUACY ? Satisfactory for Evaluation - transformation zone component present GENERAL CATEGORIZATION ? Negative for Intraepithelial Lesion or Malignancy ?? Menstrual/Pregnanc y Status: ??Menorrhagia Other: Additional clinical information: LAST PAP WNL, no hx dysplasia Specimen/Source: ??Pap Test, Cervix/Endocervix, ThinPrep Imaging System with manual evaluation Document reviewed and electronically signed by: ? MESERET Garner(ASCP) ? Report ??Date: 01/13/2013 11:32 HPV with Pap Test ? Date Ordered: ? 01/13/2013 ? Status: ?? Signed Out ?Date Complete: ? 01/15/2013 ? By: ??System Interface ? Date Reported: ? 01/15/2013 ? Interpretation RESULT: Negative for HPV. No E6 or E7 mRNA is detected from HPV types 16,18,31,33,35, 39,45,51,52,56,58, 59,66, and 68 by software engineering associate manager mediated amplification. Comments Document reviewed and electronically signed by: ? System Interface ? Report date: 01/15/2013 By the signature above, the attending physician certifies that he/she has personally conducted a gross and/or microscopic examination of the described specimens and rendered or confirmed the above diagnosis. End of Report [facility] 01/06/2013 01/07/2013 Sony Camp MD PATHOLOGY ORDERABLES Performing Organization Address City/State/[facility] Co de Phone Number [facility] [address] [place] [address] documented in this encounter Visit Diagnoses Not on filedocumented in this encounter Care Teams Data Base Design Analyst Relationship Specialty Start Date End Date Karlos Navarrete MD [address] [place] [phone] PCP - General 12/02/09 documented as of this encounter
--- OUTSIDE RECORDS SUMMARY | 2023-09-07 11:37 | XMS_ITS | Encounter Summary ---
Author Organization [facility] Address [address] [place] [address] Care Team Providers Care Health Information Specialist Name Role Phone Unknown, Provider Primary Care Provider [phone] Encounter Details Date Type Department Care Team (Late st Contact Info) Description 02/18/2009 Orders Only [facility] Laboratory Services - [facility] ([facility]) [address] [place], [place] [phone] Carlos Trevino MD [address] [place] [phone] Social History Tobacco Use Types Packs/Day Years Used Date Smoking Tobacco: Never Assessed Sex and Gender Information Value Date Recorded Sex Assigned at Not on file Gender Identity Not on file Sexual Orientation Not on file documented as of this encounter Plan of Treatment Not on file documented as of this encounter Procedures Procedure Name Priority Date/Time Associated Diagnosis Comments SURGICAL PATHOLOGY Routine 02/18/2009 0:00 EST documented in this encounter Results * SURGICAL PATHOLOGY (02/18/2009 0:00 EST) Pathology Report: SURGICAL PATHOLOGY REPORT ? Reports generated via electronic interface contain original data; ? however they are lacking the format of the original report. ? Caution should be taken when reading/interpreting unformatted reports. ? Name: ? GUIDOSH, RUBEN ? Accession #: ? [id number] ? : ? 1965 (Age: 43) ??F ? Collect Date: ? 02/18/2009 ? Location: ? [facility] ? Receive Date: ? 02/18/2009 ? Provider: CARLOS TREVINO MD ? Copy to: KARLOS NAVARRETE MD ? Final Pathologic Diagnosis: ? Breast, right, 10:00, 6 cm from nipple, core biopsy: ? - ??Nodular fibrosis with areas of fibroadenomatoid changes. ??See comment. ? Comment: ? The specimen predominantly consists of benign breast tissue with focal ? areas of fibroadenomatoid changes. ? Immunohistochemical staining was performed on this case to further ? characterize the lesion. ??Positive and negative controls stained appropriately. ? Block ?Antibody (Clone) ? Result ? A2 ?P63 (4A4, Lab Vision) ? Positive ? Heavy Chain Myosin (SMMS-1, Dako) ? Positive ? The positive result for P63 and Heavy Chain Myosin confirms the benign nature of the changes present in the core biopsies. ??This case was reviewed in the ? intradepartmental consultation conference. ??This case was discussed with . ? Flex Trevino on February 26, 2009. (Dr. Wilson)/mpl ? NOTE: ??One or more of the reagents used in immunohistochemical testing in this case may not have been cleared or approved by the U.S. Food and Drug ? Administration (FDA). ??The FDA has determined that such clearance or approval is not necessary. ??These tests are used for clinical purposes. ??They should not be regarded as investigational or for research. ??These reagents' ??performance ? characteristics have been determined by [facility]. ??This ? laboratory is certified under the Clinical Laboratory Improvement Amendments of 1988 (CLIA-88) as qualified to perform high complexity clinical laboratory ? testing. ? Document reviewed and electronically signed by: ? Terry Wilson MD ? Report ??Date: 02/26/2009 14:39 ? By the signature above, the attending physician certifies that he/she has ? personally conducted a gross and/or microscopic examination of the described ? specimens and rendered or confirmed the above diagnosis. ? Specimen(s) Received: ? Rt breast, 10 o'clock, 6 cm from nipple, core ? Clinical History: ? Category 4 U/S ? Gross Description: ? Collected and placed in formalin on February 18, 2009, at 12 o'clock PM ? with four-day processing labelled Guidosh, Ruben and core bx right are six caputo-yellow to white, fibrofatty, focally hemorrhagic, cylindrical soft tissues ?? ranging from 0.3 to 0.7 cm in length, each with a diameter of 0.2 cm. ??The ? specimens are entirely submitted as (A1) and (A2). ??(Kevyn Domínguez)/naima ? End of Report ? [facility] 02/18/2009 02/18/2009 13: 30 EST Carlos Trevino MD PATHOLOGY ORDERABLE S Performing Organization Address City/State/[facility] Co de Phone Number [facility] [address] [place] [address] documented in this encounter Visit Diagnoses Not on filedocumented in this encounter Care Teams Health Information Specialist Relationship Specialty Start Date End Date Unknown, Provider, PCP - General 02/22/09 12/01/09 documented as of this encounter
--- OUTSIDE RECORDS SUMMARY | 2023-09-07 11:37 | XMS_ITS | Encounter Summary ---
Author Organization [facility] Address [address] [place] [address] Care Team Providers Care Editing Intern Name Role Phone Trinh Coates MD Primary Care Provider [phone] Encounter Details Date Type Department Care Team (Latest Contact Info) Description 01/06/2013 10:23 EST - 01/06/2013 23:59 EST Hospital Encounter [address] [address] Unknown, Provider, Discharge Disposition: Home or Self [...] on filedocumented in this encounter Care Teams Editing Intern Relationship Specialty Start Date End Date Trinh Coates MD [address] [place] [phone] PCP - General 12/02/09 documented as of this encounter
--- OUTSIDE RECORDS SUMMARY | 2023-09-07 11:37 | XMS_ITS | Encounter Summary ---
Author Organization [facility] Address [address] [place] [address] Care Team Providers Care Ship Rigger Apprentice Name Role Phone Trinh Navarrete MD Primary Care Provider [phone] Encounter Details Date Type Department Care Team (Late st Contact Info) Description 07/03/2011 Results Only [facility] Laboratory Services - [facility] ([facility]) [address] [place], [place] [phone] Trinh Navarrete MD [address] [phone] Social History Tobacco Use Types Packs/Day Years Used Date Smoking Tobacco: Never Assessed Sex and Gender Information Value Date Recorded Sex Assigned at Not on file Gender Identity Not on file Sexual Orientation Not on file documented as of this encounter Plan of Treatment Not on file documented as of this encounter Procedures Procedure Name Priority Date/Time Associated Diagnosis Comments PAP TEST- RESULT ONLY Routine 07/03/2011 0:00 EDT documented in this encounter Results * PAP TEST- RESULT ONLY (07/03/2011 0:00 EDT) Pathology Report: CYTOPATHOLOGY REPORT Reports generated via electronic interface contain original data; however they are lacking the format of the original report. Caution should be taken when reading/interpreti ng unformatted reports. Name: ? RUBEN ARRIAGA ? Accession #: ? [id number] ? : ? 1965 (Age: 46) ??F ?Collect Date: ? 07/03/2011 ? Location: ? [facility] ? Receive Date: ? 07/04/2011 ? Provider: TRINH NAVARRETE MD Copy to: ? Final Report SPECIMEN ADEQUACY ? Satisfactory for Evaluation - transformation zone component present GENERAL CATEGORIZATION ? Negative for Intraepithelial Lesion or Malignancy ?? Last Menstural Period: 05/31 Hormonal/Contracep tive status: Tubal ligation Other: Additional clinical information: STD: genital herpes Specimen/Source: ??Pap Test, Cervix/Endocervix, ThinPrep Imaging System with manual evaluation Document reviewed and electronically signed by: ? Isabel Jean, CT(ASCP) ? Report ??Date: 07/06/2011 15:54 HPV with Pap Test ? Date Ordered: ? 07/06/2011 ? Status: ?? Signed Out ?Date Complete: ? 07/11/2011 ? By: ??System Interface ? Date Reported: ? 07/11/2011 ? Interpretation RESULT: Negative for HPV. No E6 or E7 mRNA is detected from HPV types 16,18,31,33,35, 39,45,51,52,56,58, 59,66, and 68 by superintendent track mediated amplification. Comments Document reviewed and electronically signed by: ? System Interface ? Report date: 07/11/2011 By the signature above, the attending physician certifies that he/she has personally conducted a gross and/or microscopic examination of the described specimens and rendered or confirmed the above diagnosis. End of Report [facility] 07/03/2011 07/04/2011 Trinh Navarrete MD PATHOLOGY ORDERABLES [facility] [address] [place] [address] documented in this encounter Visit Diagnoses Not on filedocumented in this encounter Care Teams Ship Rigger Apprentice Relationship Specialty Start Date End Date Trinh Navarrete MD [address] [place] [phone] PCP - General 12/02/09 documented as of this encounter
--- OUTSIDE RECORDS SUMMARY | 2023-09-07 11:37 | XMS_ITS | Encounter Summary ---
Author Organization [facility] Address [address] [place] [address] Care Team Providers Care Glass Cutter Hand Name Role Phone Unavailable Primary Care Provider Unavailabl e Encounter Details Date Type Department Care Team (Late st Contact Info) Description 12/25/2008 Orders Only [facility] Laboratory Services - [facility] ([facility]) [address] [place], [place] [id number] Trinh Navarrete MD [address] [facility] [address] [place] [phone] Social History Tobacco Use Types Packs/Day Years Used Date Smoking Tobacco: Never Assessed Sex and Gender Information Value Date Recorded Sex Assigned at Not on file Gender Identity Not on file Sexual Orientation Not on file documented as of this encounter Plan of Treatment Not on file documented as of this encounter Procedures Procedure Name Priority Date/Time Associated Diagnosis Comments CYTOPATHOLOGY Routine 12/25/2008 0:00 EST documented in this encounter Results * CYTOPATHOLOGY (12/25/2008 0:00 EST) Pathology Report: CYTOPATHOLOGY REPORT ? Reports generated via electronic interface contain original data; ? however they are lacking the format of the original report. ? Caution should be taken when reading/interpreti ng unformatted reports. ? Name: ? RUBEN ARRIAGA ? Accession #: ? [id number] ? : ? 1965 (Age: 43) ??F ?Collect Date: ? 12/25/2008 ? Location: ? [facility] ? Receive Date: ? 12/28/2008 ? Provider: ?TRINH NAVARRETE MD ? Copy to: ? Specimen/Source: ?Pap Test, Cervix/Endocervix, ThinPrep Imaging System ? with manual evaluation ? Last Menstrual Period: ? 10/22/09 ? Other: ? Additional clinical information: Left breast vx 4/4/00 fibrocystic & ductal ? hyperplasia ? HPVA - HPV testing requested if ASC-US on the current ThinPrep Pap test. ? SPECIMEN ADEQUACY ? Satisfactory for Evaluation ? - transformation zone component present ? GENERAL CATEGORIZATION ? Negative for Intraepithelial Lesion or Malignancy ? INTERPRETATION ? Reactive cellular changes associated with inflammation present (includes ?? repair). ? Document reviewed and electronically signed by: ? ABDELMONEM ELHOSSEINY MD ? Report Date: ??01/05/2009 11:41 ? End of Report ? [facility] 12/25/2008 12/28/2008 Trinh Navarrete MD PATHOLOGY ORDERABLES [facility] [address] [place] [address] documented in this encounter Visit Diagnoses Not on filedocumented in this encounter
--- OUTSIDE RECORDS SUMMARY | 2023-09-07 11:37 | XMS_ITS | Encounter Summary ---
Author Organization [facility] Address [facility] [place] [address] Care Team Providers Care Residential Energy Auditor Name Role Phone Trinh Coates MD Primary Care Provider [phone] Encounter Details Date Type Department Care Team (Late st Contact Info) Description 10/18/2012 [place] [phone] Trinh Coates MD [facility] [address] [place] [address] Social History Tobacco Use Types [...] 01/22/2024 10:30 AM EST Appointment Mammography/[place] [phone] Ladi Mendosa MD [facility] HEMATOLOGY/[place] [address] 01/30/2024 11:30 AM EST Office Visit Dermatology at [facility] [address] [place] [phone] Nilda Luis MD [facility] [address] L[place] [address] 02/15/2024 9:30 AM [place] [address] [place] [address] documented as of this encounter Procedures Procedure Name Priority Date/Time Associated Diagnosis Comments REQUEST FOR 2ND READ MAMMO Routine 10/18/2012 9:20 AM EDT documented in this encounter Results * Request for 2nd read Mammo (10/18/2012 9:20 AM EDT) Anatomical Region Laterality Modality Other 10/18/2012 9:20 AM EDT Narrative 10/23/2012 8:01 AM EDT INTERPRETATION OF OUTSIDE MAMMOGRAMS (PERFORMED ON 10/09/12 AND 10/02/12) FROM [facility] DATED 10/18/12: ?? DIAGNOSTIC IMAGING SUMMARY: ?? RIGHT BREAST LESION 1: SUSPICIOUS (BIRADS Category 4B-intermediate concern for malignancy). ?? Finding: Clustered, amorphous and pleomorphic calcifications. ?? Size: 6mm. ?? Location: 1200, 8.5 - 9.0cm radial distance from the nipple. ?? Recommendation: Stereotactic core needle biopsy. ?? RIGHT BREAST LESION 2: ASSESSMENT IS INCOMPLETE: NEEDS ADDITIONAL EVALUATION (BIRADS Category 0). ?? Finding: Oval focal asymmetry. ?? Size: 3cm. ?? Location: [phone], 12cm radial distance from the nipple. ?? Recommendation: Additional mammography and possibly sonography. ?? We will contact the patient to schedule both the diagnostic exam and the biopsy as requested. ?? The Left breast is NEGATIVE (BIRADS Category 1). ? NARRATIVE: ?? CLINICAL INDICATION: I have been asked to consult on this patient by Dr. Trinh Coates because Dr. Coates believes a review of this study may change or alter the care of this patient. Question appropriateness and feasibility of biopsy recommendation for Right breast calcifications. ?? TECHNIQUE: Digital mammography is submitted from [facility] and includes a standard screening mammogram from 10/02/12, diagnostic right mammography from 10/09/12 consisting of focal magnification CC and MLO views and comparison mammography from 05/30 and 01/27. ?? FINDINGS: The breasts are heterogeneously dense which limits sensitivity. ?? The Left breast is unchanged and unremarkable. There is a calcified fibroadenoma in the upper, inner quadrant. ?? In the deep upper central Right breast at 1200, 8.5cm radial distance from the nipple there is a 6mm cluster of amorphous and questionably pleomorphic calcifications without associated mass or focal asymmetry. The calcifications have increased from previous and are suspect based on morphology and interval change. ? On the standard views there is a questionable oval mass or focal asymmetry measuring approximately 3cm and located in the upper, outer quadrant at approximately 6325-3257, 11.5cm radial distance from the nipple. This may reflect superimposed parenchyma or a genuine abnormality. There was a mass like opacity in that region previously although it appeared more lateral and inferior than the current abnormality in question. Further evaluation with mammography and possibly sonography of this site is recommended. Procedure Note Usman Payne MD - 10/23/2012 INTERPRETATION OF OUTSIDE MAMMOGRAMS (PERFORMED ON 10/09/12 AND 10/02/12)FROM [facility] DATED 10/18/12: DIAGNOSTIC IMAGING SUMMARY: RIGHT BREAST LESION 1: SUSPICIOUS (BIRADS Category 4B-intermediate concernfor malignancy). Finding: Clustered, amorphous and pleomorphic calcifications. Size: 6mm. Location: 1200, 8.5 - 9.0cm radial distance from the nipple. Recommendation: Stereotactic core needle biopsy. RIGHT BREAST LESION 2: ASSESSMENT IS INCOMPLETE: NEEDS ADDITIONALEVALUATION (BIRADS Category 0). Finding: Oval focal asymmetry. Size: 3cm. Location: 9202-4944, 12cm radial distance from the nipple. Recommendation: Additional mammography and possibly sonography. We will contact the patient to schedule both the diagnostic exam and thebiopsy as requested. The Left breast is NEGATIVE (BIRADS Category 1). NARRATIVE: CLINICAL INDICATION: I have been asked to consult on this patient by Dr.Dana Coates because Dr. Coates believes a review of this study may change oralter the care of this patient. Question appropriateness and feasibility of biopsy recommendation for Right breast calcifications. TECHNIQUE: Digital mammography is submitted from [facility] and includes astandard screening mammogram from 10/02/12, diagnostic right mammography from10/09/12 consisting of focal magnification CC and MLO views and comparisonmammography from 05/30 and 01/27. FINDINGS: The breasts are heterogeneously dense which limits sensitivity. The Left breast is unchanged and unremarkable. There is a calcified fibroadenoma in the upper, inner quadrant. In the deep upper central Right breast at 1200, 8.5cm radial distance fromthe nipple there is a 6mm cluster of amorphous and questionably pleomorphic calcifications without associated mass or focal asymmetry. Thecalcifications have increased from previous and are suspect based on morphology andinterval change. On the standard views there is a questionable oval mass or focal asymmetry measuring approximately 3cm and located in the upper, outer quadrant at approximately 3001-6191, 11.5cm radial distance from the nipple. This may reflect superimposed parenchyma or a genuine abnormality. There was a masslike opacity in that region previously although it appeared more lateral and inferior than the current abnormality in question. Further evaluation with mammography and possibly sonography of this site is recommended. Trinh Coates MD IMG OUTSIDE INTERPRE TATION ORDERABLES documented in this encounter Visit Diagnoses Not on filedocumented in this encounter Care Teams Residential Energy Auditor Relationship Specialty Start Date End Date Trinh Coates MD [address] [place] [address] [address] [place] [address] PCP - General 01/11/10 documented as of this encounter
--- OUTSIDE RECORDS SUMMARY | 2023-09-07 11:37 | XMS_ITS | Encounter Summary ---
Author Organization [facility] Address [address] [place] [address] Care Team Providers Care Principal Architectural Firm Name Role Phone Trinh Coates MD Primary Care Provider [phone] Encounter Details Date Type Department Care Team (Late st Contact Info) Description 11/19/2020 Lab Requisition [facility] Pathology & Laboratory Medicine - [facility] [address] [place], [place] [address] Outr Resulting Lab, Provider Social History Tobacco [...] Procedure Name Priority Date/Time Associated Diagnosis Comments ZZCOVID-19 TEST [facility] PCR Today 11/19/2020 9:47 EDT COVID-19 TESTING Routine 11/19/2020 9:47 EDT documented in this encounter Results * COVID-19 TEST [facility] PCR (11/19/2020 9:47 EDT) Swab ENTIRE NASOPHARYNX / Unknown 11/19/2020 9:47 EDT 11/19/2020 22:19 EDT Provider Outr Resulting Lab MICROBIOLOGY - GENERAL ORDERABLES [facility] [address] [place] [address] * COVID-19 TESTING (11/19/2020 9:47 EDT) COVID-19 rt-PCR Result Negative Negative 11/20/2020 12:05 EDT [facility] Comment: This test has not been FDA cleared or approved. This test has been authorized by FDA under an EUA for use by authorized laboratories. This test has been authorized only for detection of nucleic acid from 2019-nCoV, not for any other viruses or pathogens. This test is only authorized for the duration of the declaration that circumstances exist justifying the authorization of emergency use of in vitro diagnostic tests for detection and/or diagnosis of 2019-nCoV under section 564(b)(1) of Act, 21 U.S.C ?? 360bbb-3(b) (1), unless the authorization is terminated or revoked sooner. Negative results do not preclude 2019-nCoV infection and should not be used as the sole basis for treatment or other patient management decisions. Negative results must be combined with clinical observations, patient history, and epidemiological information. Performed on the [employer] Fusion instrument Performing Lab [place] [facility] 11/20/2020 12:05 EDT [facility] Swab 11/19/2020 9:47 EDT 11/19/2020 22:19 EDT Provider Outr Resulting Lab MICROBIOLOGY - GENERAL ORDERABLES [facility] [address] [place] [address] documented in this encounter Visit Diagnoses Not on filedocumented in this encounter Care Teams Principal Architectural Firm Relationship Specialty Start Date End Date Trinh Coates MD [address] [place] [phone] PCP - General 12/02/09 documented as of this encounter
--- OUTSIDE RECORDS SUMMARY | 2023-09-07 11:37 | XMS_ITS | Encounter Summary ---
Author Organization [facility] Address [address] [place] [address] Care Team Providers Care Wide Load Escort Name Role Phone Karlos Navarrete MD Primary Care Provider [phone] Encounter Details Date Type Department Care Team (Late st Contact Info) Description 12/11/2013 Results Only [facility] [phone] Sony Camp MD [address] [place] [address] Social History Tobacco Use Types Packs/Day Years Used Date Smoking Tobacco: Never Assessed Sex and Gender Information Value Date Recorded Sex Assigned at Not on file Gender Identity Not on file Sexual Orientation Not on file documented as of this encounter Plan of Treatment Not on file documented as of this encounter Procedures Procedure Name Priority Date/Time Associated Diagnosis Comments SURGICAL PATHOLOGY Routine 12/11/2013 17 :51 EDT documented in this encounter Results * SURGICAL PATHOLOGY (12/11/2013 17:51 EDT) Pathology Report: SURGICAL PATHOLOGY REPORT Reports generated via electronic interface contain original data; however they are lacking the format of the original report. Caution should be taken when reading/interpreting unformatted reports. Name: ? RUBEN ARRIAGA ? Accession #: ? [id number] ? : ? 1965 (Age: 48) ??F ? Collect Date: ? 12/11/2013 ? Location: ? [facility] ? Receive Date: ? 12/11/2013 ? Provider: SONY CAMP MD Copy to: KARLOS NAVARRETE MD ? Final Pathologic Diagnosis: SKIN OF VULVA, PUNCH BIOPSY: - Features of lichen simplex chronicus. ??See comment. Comment: The biopsy shows features of lichen simplex chronicus including epidermal hyperplasia, slight hyperkeratosis, and mildly thickened collagen bundles. There is minimal inflammation associated with these changes. ??No fungal organisms are identified. ??Although psoriasis is characterized by epidermal hyperplasia, the other features (such as the lack of parakeratosis, absence of neutrophilic exocytosis, preservation of the granular layer, and irregular nature of the epidermal hyperplasia) make psoriasis unlikely. ??(Dr. Haro)/[facility] Microscopic Description: Sections consist of a punch biopsy of skin to the deep reticular dermis. ??The stratum corneum is slightly thickened by compact orthokeratin. ??The epidermis is hyperplastic with an irregular rete ridge pattern of thickened and elongate ridges. ??The keratinocytes show registered appraiser maturation with mild reactive changes. The granular layer is intact and, focally, accentuated. ??There is slight intercellular edema with exocytosis of rare lymphocytes. ??The dermis has slightly thickened collagen bundles that extend into papillae. ??There are reactive vessels, some of which are dilated. ??There is minimal inflammation consisting of rare lymphomononuclear cells. ??Deeper sections show similar features. ??No fungal organisms are identified on sections prepared with PAS-amylase stain. ??(Dr. Haro)/[facility] Document reviewed and electronically signed by: QUIN HARO MD Report ??Date: 12/15/2013 16:16 By the signature above, the attending physician certifies that he/she has personally conducted a gross and/or microscopic examination of the described specimens and rendered or confirmed the above diagnosis. Specimen(s) Received: Punch biopsy of vulvar rash Clinical History: Well-demarcated, tender, erythematous rash over mons, labia majora & inguinal areas, history of psoriasis of upper extremities ? Gross Description: ? Received in formalin labelled with proper patient identification (initials G, C) and punch bx of vulvar rash is a punch biopsy of white skin (0.4 x 0.3 cm in diameter and 0.2 cm in thickness). Submitted intact in 1. Venessa Randolphe 12/12/2013 08:33 AM End of Report [facility] 12/11/2013 17:5 1 EDT 12/11/2013 17:51 EDT Sony Camp MD PATHOLOGY ORDERABLES [facility] [address] [place] [address] documented in this encounter Visit Diagnoses Not on filedocumented in this encounter Care Teams Wide Load Escort Relationship Specialty Start Date End Date Karlos Navarrete MD [address] [place] [phone] PCP - General 12/02/09 documented as of this encounter
--- OUTSIDE RECORDS SUMMARY | 2023-09-07 11:37 | XMS_ITS | Encounter Summary ---
Author Organization [facility] Address [address] [place] [address] Care Team Providers Care Door Clamp Operator Name Role Phone Trinh Coates MD Primary Care Provider [phone] Encounter Details Date Type Department Care Team (Latest Contact Info) Description 01/26/2014 17:04 EST - 01/26/2014 23:59 [facility] Hospital Encounter [address] [address] Unknown, Provider, Discharge Disposition: Home or Self [...] on filedocumented in this encounter Care Teams Door Clamp Operator Relationship Specialty Start Date End Date Trinh Coates MD [address] [place] [phone] PCP - General 12/02/09 documented as of this encounter
--- OUTSIDE RECORDS SUMMARY | 2023-09-07 11:37 | XMS_ITS | Encounter Summary ---
Author Organization [facility] Address [address] [place] [address] Care Team Providers Care Nuclear Equipment Design Engineer Name Role Phone Trinh Navarrete MD Primary Care Provider [phone] Encounter Details Date Type Department Care Team (Late st Contact Info) Description 06/12/2018 Results Only [facility] [phone] Franco Mota MD [facility] [facility] [place] [address] Social History Tobacco Use Types [...] Diagnosis Comments PAP TEST- RESULT ONLY Routine 06/12/2018 0:00 EDT documented in this encounter Results * PAP TEST- RESULT ONLY (06/12/2018 0:00 EDT) Pathology Report: CYTOPATHOLOGY REPORT Reports generated via electronic interface contain original data; however they are lacking the format of the original report. Caution should be taken when reading/interpreti ng unformatted reports. Name: ? RUBEN ARRIAGA ? Accession #: ? [id number] ? : ? 1965 (Age: 52) ??F ?Collect Date: ? 06/12/2018 ? Location: ? [facility] ? Receive Date: ? 06/14/2018 ? Provider: TRINH NAVARRETE MD Copy to: ? Final Report SPECIMEN ADEQUACY ? Satisfactory for Evaluation - transformation zone component absent GENERAL CATEGORIZATION ? Negative for Intraepithelial Lesion or Malignancy INTERPRETATION ? Fungal organisms present morphologically consistent with Dia species. Last Menstrual Period: 2018 Other: Additional clinical information: Z00.00 Z12.4 Z11.51 Additional clinical information: not sure if adeqaute specimen Specimen/Source: ??Pap Test, Cervix, ThinPrep Imaging System with manual evaluation Document reviewed and electronically signed by: ? MESERET Garner(ASCP) ? Report ??Date: 06/18/2018 12:01 HPV with Pap Test ? Date Ordered: ? 06/18/2018 ? Status: ?? Signed Out ?Date Complete: ? 06/19/2018 ? By: ??System Interface ? Date Reported: ? 06/19/2018 ? Interpretation RESULT: Negative for HPV. No E6 or E7 mRNA is detected from HPV types 16,18,31,33,35, 39,45,51,52,56,58, 59,66, and 68 by flowers salesperson mediated amplification. Comments Document reviewed and electronically signed by: ? System Interface ? Report date: 06/19/2018 By the signature above, the attending physician certifies that he/she has personally conducted a gross and/or microscopic examination of the described specimens and rendered or confirmed the above diagnosis. End of Report [facility] 06/12/2018 06/14/2018 Trinh Navarrete MD PATHOLOGY ORDERABLES [facility] [address] [place] [address] documented in this encounter Visit Diagnoses Not on filedocumented in this encounter Care Teams Nuclear Equipment Design Engineer Relationship Specialty Start Date End Date Trinh Navarrete MD [address] [place] [phone] PCP - General 12/02/09 documented as of this encounter
--- OUTSIDE RECORDS SUMMARY | 2023-09-07 11:37 | XMS_ITS | Encounter Summary ---
Author Organization [facility] Address [address] [place] [address] Care Team Providers Care Billiard Table Mechanic Name Role Phone Unknown, Provider Primary Care Provider [phone] Encounter Details Date Type Department Care Team (Late st Contact Info) Description 2006 Results Only [facility] [address] [place] [address] Trinh Navarrete MD [address] [phone] Social History Tobacco Use Types [...] Priority Date/Time Associated Diagnosis Comments CYTOPATHOLOGY Routine 2006 0:00 EDT documented in this encounter Results * CYTOPATHOLOGY (2006 0:00 EDT) Pathology Report: CYTOPATHOLOGY REPORT Reports generated via electronic interface contain original data; however they are lacking the format of the original report. Caution should be taken when reading/interpreti ng unformatted reports. Name: ? RUBEN ARRIAGA ? Accession #: ? [id number] : ? 1965 (Age: 41) ??F ?Collect Date: ? 2006 Location: ? [facility] ? Receive Date: ? 06/28/2006 Provider: ?TRINH NAVARRETE MD Copy to: ? Specimen/Source: ?ThinPrep Pap Test, Cervix/Endocervix, processed on [employer] ThinPrep Imaging System, with manual evaluation Last Menstrual Period: ? 06/12/06 Hormonal/Contracep tive Status: ? Provera Other: ? Additional clinical information: (L) breast bx 05/24/99 fibrocystic & ductal hyperplasia 05/24/99 HPVA - HPV testing requested if ASC-US on the current ThinPrep Pap test. ? SPECIMEN ADEQUACY ? Satisfactory for Evaluation - transformation zone component present GENERAL CATEGORIZATION ? Negative for Intraepithelial Lesion or Malignancy ? Document reviewed and electronically signed by: ? MESERET Garner(ASCP) ? Report Date: ??07/02/2006 10:19 End of Report [facility] 2006 06/28/2006 Trinh Navarrete MD PATHOLOGY ORDERABLES [facility] [address] [place] [address] documented in this encounter Visit Diagnoses Not on filedocumented in this encounter Care Teams Billiard Table Mechanic Relationship Specialty Start Date End Date Unknown, Provider, PCP - General 02/22/09 12/01/09 documented as of this encounter
--- OUTSIDE RECORDS SUMMARY | 2023-09-07 11:37 | XMS_ITS | Encounter Summary ---
Author Organization [facility] Address [facility] [place] [address] Care Team Providers Care Homicide Squad Sergeant Name Role Phone Trinh Coates MD Primary Care Provider [phone] Encounter Details Date Type Department Care Team (Late st Contact Info) Description 10/22/2012 [place] [phone] Usman Payne MD [facility] DIAGNOSTIC [place] [address] Abnormal mammogram, unspecified (Primary Dx) Social History Tobacco Use Types [...] 01/22/2024 10:30 AM EST Appointment Mammography/[place] [phone] Ladi Mendosa MD [facility] HEMATOLOGY/[place] [address] 01/30/2024 11:30 AM EST Office Visit Dermatology at [facility] [address] [place] [phone] Nilda Luis MD [facility] DR LIDIA AMEZCUA-[place] [address] 02/15/2024 9:30 AM EST Appointment [place] [address] [place] [address] documented as of this encounter Results * Mammo direct digital unilateral (10/30/2012 3:13 PM EDT) Anatomical Region Laterality Modality Breast N/A Mammography 10/30/2012 3:13 PM EDT Narrative 10/31/2012 12:04 PM EDT DIAGNOSTIC RIGHT MAMMOGRAPHY ON 10/30/12: ?? DIAGNOSTIC IMAGING SUMMARY: ?? RIGHT BREAST LESION 1: SUSPICIOUS (BIRADS Category 4B-intermediate concern). ?? Finding: Clustered amorphous and pleomorphic calcifications. ?? Size: 6mm. ?? Location: 1200, 8.5 - 9cm radial distance from the nipple. ?? Recommendation: Stereotactic core needle biopsy which has been scheduled for 11/07/12 at 10:00am. ?? RIGHT BREAST LESION 2: Negative (BIRADS Category 1). ?? Preliminary report E-mailed to Dr. Trinh Coates on 10/31/12. ?? NARRATIVE: ?? CLINICAL INDICATION: Nodular asymmetry questioned on outside images (see my consultation report of 10/18/12). ?? TECHNIQUE: Focal compression CC, focal compression MLO, ML and MLO views of the Right breast obtained with direct digital capture. This exam was evaluated by CAD version 8.3.17. ?? COMPARISON: [facility] Right mammography 10/01, 05/30 and 01/27. ?? FINDINGS: The previously noted nodular asymmetry effaces with focal compression consistent with tissue overlap. ? Right breast lesion 1 (scheduled for stereotactic needle biopsy) is again noted at 1200 in the central Right breast and has been previously reported. Procedure Note Usman Payne MD - 10/31/2012 DIAGNOSTIC RIGHT MAMMOGRAPHY ON 10/30/12: DIAGNOSTIC IMAGING SUMMARY: RIGHT BREAST LESION 1: SUSPICIOUS (BIRADS Category 4B-intermediateconcern). Finding: Clustered amorphous and pleomorphic calcifications. Size: 6mm. Location: 1200, 8.5 - 9cm radial distance from the nipple. Recommendation: Stereotactic core needle biopsy which has been scheduledfor 11/07/12 at 10:00am. RIGHT BREAST LESION 2: Negative (BIRADS Category 1). Preliminary report E-mailed to Dr. Trinh oCates on 10/31/12. NARRATIVE: CLINICAL INDICATION: Nodular asymmetry questioned on outside images (seemy consultation report of 10/18/12). TECHNIQUE: Focal compression CC, focal compression MLO, ML and MLO viewsof the Right breast obtained with direct digital capture. This exam was evaluatedby CAD version 8.3.17. COMPARISON: [facility] Right mammography 10/01, 05/30 and 01/27. FINDINGS: The previously noted nodular asymmetry effaces with focalcompression consistent with tissue overlap. Right breast lesion 1 (scheduled for stereotactic needle biopsy) is againnoted at 1200 in the central Right breast and has been previously reported. Usman Payne MD IMG MAMMO ORDERABLES documented in this encounter Visit Diagnoses Diagnosis Abnormal mammogram, unspecified- Primary Abnormal mammogram, unspecified documented in this encounter Care Teams Homicide Squad Sergeant Relationship Specialty Start Date End Date Trinh Coates MD [address] [place] [address] [facility] [address] [place] [address] PCP - General 01/11/10 documented as of this encounter
--- OUTSIDE RECORDS SUMMARY | 2023-09-07 11:37 | XMS_ITS | Encounter Summary ---
Author Organization [facility] Address [address] [place] [address] Care Team Providers Care Senior Storage Administrator Name Role Phone Unknown, Provider Primary Care Provider Encounter Details Date Type Department Care Team (Late st Contact Info) Description 11/23/2000 Results Only [facility] [address] [place] [address] Trinh Navarrete MD [address] [address] Social History Tobacco Use Types [...] Priority Date/Time Associated Diagnosis Comments CYTOPATHOLOGY Routine 11/23/2000 0:00 EDT documented in this encounter Results * CYTOPATHOLOGY (11/23/2000 0:00 EDT) Pathology Report: CYTOPATHOLOGY REPORT Reports generated via electronic interface contain original data; however they are lacking the format of the original report. Caution should be taken when reading/interpreti ng unformatted reports. Name: ? RUBEN ARRIAGA ? Accession #: ? [id number] : ? 1965 (Age: 35) ??F ?Collect Date: ? 11/23/2000 Location: ? [facility] ? Receive Date: ? 11/27/2000 Provider: ?TRINH NAVARRETE MD Copy to: ? Specimen/Source: ?Conventional Pap Test, Cervix/Endocervix Last Menstrual Period: ? 10/20 ? SPECIMEN ADEQUACY ? Satisfactory for evaluation. GENERAL CATEGORIZATION ? Within Normal Limits ? Document reviewed and electronically signed by: ? MESERET Flores(ASCP) ? Report Date: ??11/29/2000 07:37 End of Report [facility] 11/23/2000 11/27/2000 Trinh Navarrete MD PATHOLOGY ORDERABLES [facility] [address] [place] [address] documented in this encounter Visit Diagnoses Not on filedocumented in this encounter Care Teams Senior Storage Administrator Relationship Specialty Start Date End Date Unknown, Provider, PCP - General 02/22/09 12/01/09 documented as of this encounter
--- OUTSIDE RECORDS SUMMARY | 2023-09-07 11:37 | XMS_ITS | Clinical Summary ---
Author Organization [facility] Address [address] [place] [address] Care Team Providers Care Area Manager Name Role Phone Trinh Coates MD Primary Care Provider [phone] Social History Tobacco Use Types Packs/Day Years Used Date Smoking Tobacco: Never Assessed Interpersonal Safety Answer Date Record ed Physically Hurt Never 09/21/2019 Verbally Threaten Not on file 09/21/2019 Sex and Gender Information Value Date Recorded Sex Assigned at Not on file Gender Identity Not on file Sexual Orientation Not on file Plan of Treatment Health Maintenance Due Date Last Done Comments COVID-19 Vaccine (2022-24 season) 2022 RSV Immunization ( o r 60+ Years) (1 - 1-dose 60+ series) 2023 Hepatitis C Screen Completed 01/31/2021 Procedures Procedure Name Priority Date/Time Associated Diagnosis Comments HEPATITIS C AB W REFLEX TO HCV RNA BY PCR Routine 01/31/2021 10:05 EST from Last 3 Months or Most Recently Relevant to Health Maintenance Results * HEPATITIS C AB W REFLEX TO HCV RNA BY PCR (01/31/2021 10:05 EST) Hep C Antibody Negative Negative 02/01/2021 9:49 EST [facility] Blood VENOUS BLOOD / Unknown 01/31/2021 10:05 EST 01/31/2021 21:04 EST Provider Outr Resulting Lab CHEMISTRY & BLOOD GAS ORDERABLES [facility] [address] [place] [address] from Last 3 Months or Most Recently Relevant to Health Maintenance Care Teams Area Manager Relationship Specialty Start Date End Date Trinh Coates MD [address] [place] [phone] [facility] - General 12/02/09
--- OUTSIDE RECORDS SUMMARY | 2023-09-07 11:37 | XMS_ITS | Encounter Summary ---
Author Organization [facility] Address [address] [place] [address] Care Team Providers Care Order Management Specialist Name Role Phone Unknown, Provider Primary Care Provider Encounter Details Date Type Department Care Team (Late st Contact Info) Description 11/29/2009 Results Only [facility] - [facility] [place] [place] [address] [place] [phone] Carlos Trevino MD [address] [place] [phone] Social History Tobacco Use Types Packs/Day Years Used Date Smoking Tobacco: Never Assessed Sex and Gender Information Value Date Recorded Sex Assigned at Not on file Gender Identity Not on file Sexual Orientation Not on file documented as of this encounter Plan of Treatment Not on file documented as of this encounter Procedures Procedure Name Priority Date/Time Associated Diagnosis Comments SURGICAL PATHOLOGY Routine 11/29/2009 0:00 EDT documented in this encounter Results * SURGICAL PATHOLOGY (11/29/2009 0:00 EDT) Pathology Report: SURGICAL PATHOLOGY REPORT ? Reports generated via electronic interface contain original data; ? however they are lacking the format of the original report. ? Caution should be taken when reading/interpreting unformatted reports. ? Name: ? GUIDOSH, RUBEN ? Accession #: ? [id number] ? : ? 1965 (Age: 44) ??F ? Collect Date: ? 11/29/2009 ? Location: ? [facility] ? Receive Date: ? 11/30/2009 ? Provider: CARLOS TREVINO MD ? Copy to: KARLOS NAVARRETE MD ? Final Pathologic Diagnosis: ? Breast, right, 10 o'clock, excision: ? 1. ?? Pseudoangiomatous stromal hyperplasia (PASH) (3.0 cm in greatest ? dimension). ? 2. ?? Intraductal papilloma with atypia and increased mitoses, completely ?? excised. ??See comment. ? 3. ?? Fibrocystic changes including: ? - Moderate epithelial hyperplasia. ? - Adenosis. ? - Apocrine metaplasia. ? - Interlobular fibrosis. ? Comment: ? Sports Medicine Trainer sections were reviewed by Dr. Terry Wilson who concurs with ?? the diagnosis. The atypical papilloma is best seen on section A23. ??( ? Jessy)/cjh ? Document reviewed and electronically signed by: ? RASHEED JAMES MD ? Report ??Date: 12/02/2009 09:06 ? By the signature above, the attending physician certifies that he/she has ? personally conducted a gross and/or microscopic examination of the described ? specimens and rendered or confirmed the above diagnosis. ? Specimen(s) Received: ? R breast mass 10 o'clock, long suture lateral, short suture superior, ? double suture anterior ? Clinical History: ? Mass central R breast S/P core bx ? Gross Description: ? Received in formalin labelled Juanmoreno, Ruben and R breast mass is a ?? 25.0 gram portion of fibrofatty tissue received oriented as per the surgical ? pathology requisition slip which measures 5.0 cm medial to lateral, 3.5 cm ? superior to inferior, and 3.3 cm anterior to posterior. ??The specimen is ? received with a needle localizing wire which enters from the lateral aspect of ?? the specimen. ??The margins are inked as follows: anterior yellow, posterior ? black, medial red, lateral orange, superior blue, inferior green. ??The specimen is sectioned from lateral (level 1) to medial (level 12) revealing a well ? delineated, firm, white, lobular, focally hyperemic mass which measures 3.0 cm ?? superior to inferior, 2.7 cm medial to lateral, and 2.4 cm anterior to posterior which comes to within 0.1 cm of the anterior margin, 0.1 cm of the superior ? margin, 0.4 cm of the posterior margin, 0.5 cm of the inferior margin, and is ?? greater than 1.0 cm from meal margins. ??The remaining specimen is composed of ?? light yellow, lobular adipose tissue admixed with white, fibrous breast tissue. The specimen is entirely submitted from lateral (level 1) to medial (level 12) ?? as follows: ? Time in formalin: ??12:15 hours on November 29, 2009 ? Time out of formalin: ??19:00 hours on November 30, 2009 ? BLOCK HORTA ? A1-A3 ?Level 1 (lateral margin) seven perpendicular sections ? A4 ?Level 2 superior half ? A5 ?Level 2 inferior half ? A6 ?Level 3 superior half ? A7 ?Level 3 inferior half ? A8 ?Level 4 superior half ? A9 ?Level 4 inferior half ? A10 ?Level 5 superior half ? A11 ?Level 5 inferior half ? A12 ?Level 6 superior half ? A13 ?Level 6 inferior half ? A14 ?Level 7 superior half ? A15,A16 ? Level 7 superior half (A16 only includes thinned posterior margin) ?? A17 ?Level 8 superior half ? A18 ?Level 8 inferior half ? A19 ?Level 9 superior half ? A20 ?Level 9 inferior half ? A21 ?Level 10 superior half ? A22 ?Level 10 inferior half ? A23 ?Level 11 superior half ? A24 ?Level 11 inferior half ? A25,A26 ? Level 12 (medial margin) three perpendicular sections ? (J. Tessitore)/cjh ? End of Report ? [facility] 11/29/2009 11/30/2009 8:0 8 EDT Carlos Trevino MD PATHOLOGY ORDERABLE S [facility] [address] [place] [address] documented in this encounter Visit Diagnoses Not on filedocumented in this encounter Care Teams Order Management Specialist Relationship Specialty Start Date End Date Unknown, Provider, PCP - General 02/22/09 12/01/09 documented as of this encounter
--- OUTSIDE RECORDS SUMMARY | 2023-09-07 11:37 | XMS_ITS | Encounter Summary ---
Author Organization [facility] [place] [address] Care Team Providers Care Folding Machine Setter Name Role Phone Trinh Coates MD Primary Care Provider [phone] Encounter Details Date Type Department Care Team (Latest Contact Info) Description 10/30/2012 1:59 PM EDT - 10/30/2012 11:59 PM EDT Hospital Encounter [place] [address] CLINIC, Trinh Medina MD [facility] [address] [place] [address] Abnormal mammogram, unspecified Discharge Disposition: Home Social History Tobacco Use Types Packs/Day Years Used Date Smoking Tobacco: Never Assessed Sex and Gender Information Value Date Recorded Sex Assigned at Not on file Gender Identity Not on file Sexual Orientation Not on file documented as of this encounter Medications at Time of Discharge Medication Sig Dispensed Refills Start Date End Date triamcinolone (ARISTOCORT) 0.5 % cream 03/29/2017 documented as of this encounter Miscellaneous Notes * Miscellaneous - Provider, Scanning - 12/31/2012 11:28 AM EST documented in this encounter Plan of Treatment Upcoming Encounters Date Type Department Care Team (Late st Contact Info) Description 01/22/2024 10:30 AM EST Appointment Mammography/[place] [address] Ladi Mendosa MD [facility] [place]ATOLOGY/[place] [address] 01/30/2024 11:30 AM EST Office Visit Dermatology at [facility] [address] [place] [phone] Nilda Luis MD [facility] DR [place] [address] 02/15/2024 9:30 AM EST Appointment [place] [address] Joanna Watts MD [place], [place] [phone] documented as of this encounter Procedures Procedure Name Priority Date/Time Associated Diagnosis Comments MAMMO DIRECT DIGITAL UNILATERAL Routine 10/30/2012 3:13 PM EDT Abnormal mammogram, unspecified documented in this encounter Results * Mammo [...] evaluated by CAD version 8.3.17. ?? COMPARISON: [facility] Right mammography 10/01, 05/30 and 01/27. [...] 1). Preliminary report E-mailed to Dr. Trinh Coates on 10/31/12. NARRATIVE: CLINICAL INDICATION: Nodular asymmetry questioned on outside images (seemy consultation report of 10/18/12). TECHNIQUE: Focal compression CC, focal compression MLO, ML and MLO viewsof the Right breast obtained with direct digital capture. This exam was evaluatedby CAD version 8.3.17. COMPARISON: [facility] Right mammography 10/01, 05/30 and 01/27. FINDINGS: The previously noted nodular asymmetry effaces with focalcompression consistent with tissue overlap. Right breast lesion 1 (scheduled for stereotactic needle biopsy) is againnoted at 1200 in the central Right breast and has been previously reported. Usman Payne MD IMG MAMMO ORDERABLES documented in this encounter Visit Diagnoses Diagnosis Abnormal mammogram, unspecified documented in this encounter Care Teams Folding Machine Setter Relationship Specialty Start Date End Date Trinh Coates MD [address] [place] [address] [address] PCP - General 01/11/10 documented as of this encounter
--- OUTSIDE RECORDS SUMMARY | 2023-09-07 11:37 | XMS_ITS | Encounter Summary ---
Author Organization [facility] Address [address] [place] [address] Care Team Providers Care Food Handler Name Role Phone Trinh Coates MD Primary Care Provider [phone] Encounter Details Date Type Department Care Team (Late st Contact Info) Description 08/01/2021 Lab Requisition [facility] - [facility] [address] [place], [place] [phone] Outr Resulting Lab, Provider Social History Tobacco [...] Procedure Name Priority Date/Time Associated Diagnosis Comments HIV 1/2 ANTIGEN AND ANTIBODY, 4TH GENERATION Routine 08/01/2021 11:11 EDT documented in this encounter Results * HIV 1/2 ANTIGEN AND ANTIBODY, 4TH GENERATION (08/01/2021 11:11 EDT) HIV 1 and 2 Antibody/p24 Antigen, 4th Generation Negative Negative 08/02/2021 10:04 EDT [facility] Comment:If acute HIV-1 infec tion is suspected in a high risk patient, submit plasma specimen for HIV-1 RNA quantitation test. Blood VENOUS BLOOD / Unknown 08/01/2021 11:11 EDT 08/01/2021 21:40 EDT Narrative [facility] - 08/02/2021 10:04 EDT Fourth Generation assay performed on the Siemens Centaur XPT. Provider Outr Resulting Lab IMMUNOLOGY A ND SEROLOGY ORDERABLES [facility] [address] [place] [address] documented in this encounter Visit Diagnoses Not on filedocumented in this encounter Care Teams Food Handler Relationship Specialty Start Date End Date Trinh Coates MD [address] [place] [phone] PCP - General 12/02/09 documented as of this encounter
[2023-09-07 19:21] LABS: Anion Gap 10.5 mmol/L (3-11); BUN 41 mg/dL (7-18); CO2 26.5 mmol/L (21.0-32.0); CREATININE 2.1 mg/dL (0.55-1.02); Calcium 9.3 mg/dL (8.5-10.1); Chloride 104 mmol/L (98-107); Estimated GFR 26.48 (mL/min/1.73m2); Glucose 98 mg/dL (74-106); Magnesium 2.1 mg/dL (1.8-2.4); Potassium 4.6 mmol/L (3.5-5.1); Sodium 141 mmol/L (136-145)
== END 2023-09-07 11:14 | disposition home or self-care (01) ==
LOC: NCHCN 11:13
PROVIDERS: PCP Family Medicine; Visit Provider Family Medicine
DX: N18.32 Chronic kidney disease, stage 3b (principal)
CPT/HCPCS: 80048; 83735

== ENCOUNTER 2023-09-25 11:37 | Day surgery (SDC) | payer OTHER, SELFPAY ==
--- NOTE | 2023-09-24 18:17 | ANES.PREOP_ITS ---
General Info Date of Service Date Performed: 09/25/23 Height: 5 ft Weight: 83.461 kg Body Mass Index (BMI): 35.9 Surgical Procedure: Operation Date: 09/25/23 07:40 Proposed Procedure Side Surgeon p Exam Under Anesthesia Susana Acosta DO s Possible Internal & External Hemorrhoidectomy Susana Acosta DO Meds Allergies and Home Medications Allergies Allergy/AdvReac Type Severity Reaction Status Date / Time sertraline (From Zoloft) Allergy Skin Rash Verified 09/25/23 06:51 Penicillins AdvReac Intermediate Thrush Verified 09/25/23 06:51 Home Medication ?Medication ?Instructions ?Recorded diltiazem HCl 240 mg 240 mg PO HS 01/06/13 capsule,extended release 24 hr fluoxetine 40 mg capsule (Prozac) 40 mg PO DAILY 01/06/13 cholecalciferol (vitamin D3) 25 1,000 units PO DAILY 03/06/13 mcg (1,000 unit) tablet ferrous sulfate 325 mg (65 mg 1 tab PO DAILY 01/26/14 iron) tablet (Feosol) losartan 25 mg tablet 100 mg PO DAILY 10/24/17 gabapentin 300 mg capsule 300 mg PO BID 07/27/19 spironolactone 25 mg tablet 25 mg PO DAILY 07/27/19 rosuvastatin 10 mg tablet (Crestor) 10 mg PO DAILY 09/24/20 exemestane 25 mg tablet 25 mg PO DAILY 12/22/20 calcium carbonate (Calcium 600) 600 mg PO DAILY 12/06/21 aspirin 81 mg tablet,delayed 81 mg PO DAILY 09/19/22 release acetaminophen 500 mg tablet 650 mg (1.3 x 500 mg) PO QID #0 05/21/23 tabs docusate sodium 100 mg capsule 100 mg PO TID #0 caps 05/21/23 (Colace) polyethylene glycol 3350 17 gram 17 g PO BID #0 ea 05/21/23 oral powder packet ustekinumab 45 mg/0.5 mL 45 mg subcut Q12W 05/23/23 subcutaneous syringe (Stelara) liraglutide 0.6 mg/0.1 mL (18 mg/3 1.2 mg subcut DAILY 08/06/23 mL) subcutaneous pen injector semaglutide (weight loss) 1 mg/0.5 1 mg subcut Q7D 09/21/23 mL subcutaneous pen injector ([employer]) dibucaine 1 % rectal ointment 1 applic MN QID PRN #56 grams 09/24/23 Current Visit Medications: Current Medications Generic Name Dose Route Start Last Admin Trade Name Tammi PRN Reason Stop Dose Admin Ringer's Solution 1,000 mls @ 80 mls/hr 09/25/23 06:00 IV 09/25/23 23:59 INFUSION GEORGINA IV Miscellaneous Supplies 1 each 09/25/23 06:00 Iv Access IV 09/25/23 23:59 DIRECTED GEORGINA Sodium Chloride 0 ml 09/25/23 06:00 Normal Saline Flush 10 Ml Syr IV 09/25/23 23:59 PRN PRN Sodium Chloride 0 ml 09/25/23 06:00 Normal Saline 10 Ml Vial IJ 09/25/23 23:59 DIRECTED PRN Sterile Water 0 ml 09/25/23 06:00 Water,Injection,Sterile 10 Ml Vial IJ 09/25/23 23:59 DIRECTED PRN PFSH Active Problems Active Problems: Problem Status Onset Code Internal hemorrhoids Acute K64.8 Hypermagnesemia Acute E83.41 Hyperkalemia Acute E87.5 Difficult intravenous access Acute Z78.9 Intractable back pain Acute M54.9 Severe back pain Acute M54.9 Acute medial meniscus tear of left knee Acute ~10/07/22 S83.242A Brain aneurysm Acute I67.1 External hemorrhoids Acute K64.4 Sessile colonic polyp Acute K63.5 Tubular adenoma of colon Acute D12.6 Screening for colon cancer Acute Z12.11 Acute lateral meniscal injury of left knee Acute S83.8X2A JACQUELYN (obstructive sleep apnea) Chronic G47.33 Left ACL tear Acute ~03/2020 S83.512A Medical History Medical History (Updated 09/24/23 @ 20:10 by Susana Acosta DO) Constipation Lichen simplex chronicus Exophthalmos History of left breast cancer Sciatica Prediabetes Chronic kidney disease Peripheral neuropathy Lymphedema Left arm Hyperaldosteronism Right rotator cuff tendonitis Right lateral epicondylitis Trigger ring finger of right hand Biceps tendinitis of right shoulder s/p right shoulder arthroscopy DOS: 12/12/19 Arthritis of right acromioclavicular joint s/p right shoulder arthroscopy DOS: 10/23/20 Vulvar rash (12/11/13) lichen simplex chronicus, w/ features of psoriasis which pt has on hands and elsewhere. treated w/ steroids Tinnitus (10/27/15) Left ureteral stone (03/02/17) Irregular bleeding (05/14/14) currently treated w/ POPs, to amenorhea History of hyperparathyroidism (03/02/17) Bursitis of shoulder (12/30/12) Bilateral kidney stones (03/02/17) Abnormal auditory perception (10/27/15) Obesity Hypertension Psoriasis Proteinuria Impaired fasting glucose Kidney stone Hyperlipidemia Herpes, genital Fibrocystic breast Depression Attention deficit disorder (ADD) Hypomagnesemia Hx of hypoparathyroidism History of hypothyroidism Psoriasis Breast cancer Seroma complicating a procedure Leukocytosis Hypokalemia Surgical History Surgical History (Updated 09/21/23 @ 13:57 by Jose Angel Fernandes) Brain surgery within last 3 months angiogram for stent Hx of knee surgery History of ankle surgery Left Hx of shoulder surgery Left Hx of bilateral mastectomy Hx of shoulder surgery L arm clavicle and muscle Rotator cuff tear, right s/p right shoulder arthroscopy with arthroscopic biceps tenodesis DOS: 12/12/19 RIGHT THUMB ARTHROPLASTY (01/27/15) DR. KANG Colonoscopy - MAC (~02/2021) Tobacco Smoking/Tobacco Use Status: Former Tobacco Use Alcohol Alcohol Intake: current Alcohol intake frequency: a few times a week Substance Use Substance use: Never Substance use type: does not use Vital Signs and Lab Results Vital Signs Most Recent Vital Signs in EMR: Temp Pulse Resp BP Pulse Ox 36.7 C 84 16 131/98 H 98 09/25/23 06:44 09/25/23 06:44 09/25/23 06:44 09/25/23 06:44 09/25/23 06:44 Lab Results Blood Type / Crossmatch: No Data to Display Complete Blood Count: No Data to Display Complete Metabolic Panel: Sodium 141 mmol/L (136-145) 09/07/23 10:20 Potassium 4.6 mmol/L (3.5-5.1) 09/07/23 10:20 Chloride 104 mmol/L (98-107) 09/07/23 10:20 Carbon Dioxide 26.5 mmol/L (21.0-32.0) 09/07/23 10:20 BUN 41 mg/dL (7-18) H 09/07/23 10:20 Creatinine 2.1 mg/dL (0.55-1.02) H 09/07/23 10:20 Est GFR (CKD-EPI 2020) 26.48 (mL/min/1.73m2) 09/07/23 10:20 Magnesium 2.1 mg/dL (1.8-2.4) 09/07/23 10:20 Calcium 9.3 mg/dL (8.5-10.1) 09/07/23 10:20 Glucose 98 mg/dL (74-106) 09/07/23 10:20 Liver Function Panel: No Data to Display Coagulation Panel: No Data to Display Cardiac Panel: No Data to Display Arterial Blood Gas: No Data to Display Venous Blood Gas: No Data to Display Pancreas Panel: No Data to Display Thyroid Panel: No Data to Display Infectious Disease: No Data to Display Blood Cultures: No Data to Display Toxicology Panel: No Data to Display Imaging and Studies Imaging and Studies Study information below may be from another EMR and interpreted by another provider. Please see original notes in EMR for more complete details. Echocardiogram Summary: 12/11: LVEF 55-60%, no sig valve dz. [place] [facility] [place] EF 70%, Mild LVH, Trace MR, Other valves normal. Anesthesia Assessment and Plan Anesthesia History Personal History: No History of Anesthesia Complications Family History: No Family History of Anesthesia Complications Exercise Tolerance Exercise Tolerance: Metabolic Equivalents>4 Cardiac & Pulmonary Exam Cardiac Exam: Normal S1/S2 Heart Sounds Pulmonary Exam: Clear Bilateral Breath Sounds Implantable Cardiac Device Does patient have a Pacemaker or an ICD?: No Airway Exam Known Difficult Airway: No Mallampati Class: 2 Mouth Opening: Normal (> 3cm) Thyromental Distance: Less than 3 cm Neck Range of Motion: Full ROM Neck Circumference: Normal Teeth Condition: Normal Dentition ASA Classification ASA Score: ASA 2 Emergency Case?: No NPO Status NPO Status: NPO Clears >2 hours, Solids >8 hours Anesthesia Plan Resuscitation Status: Full Code Anesthesia Technique: General Anesthesia Airway Planned: Endotracheal Tube Monitors Used: Standard Monitors Preoperative Comments:: 57 yo female for EUA. 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 flow diverting stent embolization performed 08/11 [facility] [place] preDM, elevated BMI (semaglutide), hyperaldosteronism, beast CA (mastectomy, radiation, chemo), CKD, former smoker (quit 1992), occ ETOH. Previous Anes: - ACL reconstruction, easy mask, mac 3 grade 1. - colo, prop, natural airway, no issues. - ACL, dex/ketamine, prop, glide 3 grade 1, easy mask. femoral nerve block, 15 mL 0.5%, exparel 10 mL, 9/10 pain on post op note. - shoulder, prop, phenyl, glide 3 grade 1, easy mask. ISB, 15 mL 0.5% bup, exparel 10 mL - [facility] [place] mastectomy, mac 3 marquise 1. Discussed spinal vs GA, would like GA. Will be ETT due to prone positioning.
--- NOTE | 2023-09-24 20:09 | W.PM.DSUDISC ---
Date of service: 09/25/23 Time of Service: 09:24 Discharge Plan Disposition Patient Disposition: Home Condition: Good Discharge Details Reason For Visit: Hemorrhoid removal Attending Provider: Susana Acosta Primary Care Provider: Trinh Coates Home Meds and New Rx's Prescriptions: New dibucaine 1 % ointment 1 applic PA QID PRNQty: 56 3RF tramadol 50 mg tablet 50 mg PO Q6H PRNQty: 14 0RF Rx Instructions: This medication causes constipation Continued calcium carbonate [Calcium 600] 600 mg calcium (1,500 mg) tablet 600 mg PO DAILY liraglutide 0.6 mg/0.1 mL (18 mg/3 mL) pen injector 1.2 mg subcut DAILY fluoxetine [Prozac] 40 MG capsule 40 mg PO DAILY diltiazem HCl 240 MG capsule,extended release 24hr 240 mg PO HS rosuvastatin [Crestor] 10 mg tablet 10 mg PO DAILY cholecalciferol (vitamin D3) 1,000 UNITS tablet 1,000 units PO DAILY ferrous sulfate [Feosol] 325 MG tablet 1 tab PO DAILY losartan 25 mg Tablet 100 mg PO DAILY polyethylene glycol 3350 17 gram Powder In Packet 17 g PO BID Qty: 0 0RF acetaminophen 500 mg Tablet 650 mg PO QID Qty: 0 0RF docusate sodium [Colace] 100 mg Capsule 100 mg PO TID Qty: 0 0RF Stelara 45 mg/0.5 mL syringe 45 mg SUBCUT Q12W Wegovy 1 mg/0.5 mL pen injector 1 mg SUBCUT Q7D Patient Comments: HAS NOT STARTED YET 09/25/23 FS RN spironolactone 25 mg tablet 25 mg PO DAILY Patient Comments: TAKE 1 TABLET BY MOUTH ONCE DAILY gabapentin 300 mg capsule 300 mg PO BID Patient Comments: TK 1 C PO IN THE MORNING AND HS exemestane 25 mg tablet 25 mg PO DAILY Patient Comments: TAKE 1 TABLET BY MOUTH DAILY Held aspirin 81 mg tablet,delayed release (DR/EC) 81 mg PO DAILY Hold Instructions: Resume on 10/09/23. Discharge Instructions Additional Instructions: Home Care Instructions after Rectal Surgery Pain/muscle spasms are normal after surgery. Use the prescribed pain medications, valium and topical creams. Do not use any other creams unless specifically prescribed for you. Do not take the pain medication and valium at the same time. It takes oral pain meds an hour to take effect. Do not get behind on your pain meds. You can alternate with NSAID?s (ibuprofen 400-600mg) every 8 hours. Take with food; do not take if you have ulcers or sensitivity to aspirin. Constipation occurs with the use of narcotic pain medications. The first bowel movement after surgery will be painful. Do not let yourself get constipated. Stay on a stool softener while you are on the narcotics. It is recommended that you use a fiber supplement (Metamucil, Citrucel) daily (1 tablespoon in 8 oz of water). If you do not have a bowel movement daily, use Milk of Magnesia or Miralax. Continue to use the Colace as previously prescribed. It is normal to have bleeding or drainage after rectal surgery; especially when you move your bowels. Use a sanitary napkin to collect the discharge. If you are passing large clots or having to change the pad more than every 4 hours, call the clinic or go to the ER. You may experience spasms in the rectal muscles. This is normal after surgery and last for about two weeks. They can become more intense with bowel movements. You can use the valium as a muscle relaxant (do not take at the same time as the pain medications). You can also try sitz bathes (sitting in a bath tub of PLAIN lukewarm water; soap can add to rectal irritation). Or you can try ice packs. You will have to see what works best for you. It is ok to shower. Avoid soap on the surgical area. Use a pillow to sit on. Follow a mild bland diet. Avoid alcohol, spicy food, citrus, and tomatoes. Avoid strenuous activity (running, jogging, and power walking, swimming, weight lifting) for two weeks. No lifting over 5 pounds for 2 [address] if taking pain medications, or cannot turn or twist your body without hesitation. You can return to work when you are no longer taking the pain meds, can sit comfortably for 8 hours or when the weight restrictions are lifted. Urinary retention is common. Sit in a warm tub to try to relax the bladder. If you are unable to urinate after 8 hours, call the office or go to the ER. You do have rectal packing in the rectum. The first time you move you go to the bathroom this will fall out. If you have stitches in place, they will fall out in about 7-10 days. They may develop an ?odor?. Follow up in 2 weeks- call the office for an appointment, After hours= ER: Stand Alone Forms: Anesthesia Discharge Maximus Maria (DSU) Activity:: see above Diet:: As Tolerated Discharge Orders Discharge Orders: Discharge Order (Routine); Ordered 09/25/23 Ordered By: Susana Acosta DS: Diagnosis Discharge Diagnosis (1) Difficult intravenous access: Status: Acute (2) Sessile colonic polyp: Status: Acute (3) External hemorrhoids: Status: Acute Asessment and Plan: The patient is doing well post-op from their hemorrhoid surgery.? They are having no nausea or vomiting. They are tolerating liquids and a snack. The pt is not having any chest pain or SOB.? Their pain is adequately controlled. They have been able to urinate.? ?HEENT:? no eye pain/drainage/redness/swelling. Mild sore throat ?Cardio- NSR, no chest pain, BP stable- see VS record ?Pulm: no sob or productive cough. No hemoptysis ?Incision- dressing is c/d/i w/ no excessive bleeding or drainage ?I discussed with the patient the findings at the time of surgery and the patient?s progress. ?We reviewed expectations at home; what the patient could expect for recovery time, and in the post-operative period.? We discussed the importance of walking to avoid blood clots and pneumonia.? We discussed and reviewed the patient's post-operative wound care and dressing needs.?? We reviewed their step-lerner pain management plan, Rx called to the pharmacy of their choice.? We reviewed activity and limitations-see discharge instructions. We reviewed warning signs, and when to seek medical attention- see d/c instructions.?? Patient was given a postoperative follow-up appointment. Patient verbalized understanding of their postoperative instructions, how do to take care of themselves and their incision, and the pain management plan. Please see discharge instructions.? (4) Internal hemorrhoids: Status: Acute (5) Brain aneurysm: Status: Acute (6) JACQUELYN (obstructive sleep apnea): Status: Chronic (7) Hypertension: (8) Hyperlipidemia: (9) Prediabetes: (10) Hyperaldosteronism:
--- NOTE | 2023-09-24 20:30 | W.COLOREPORT ---
Colonoscopy Report Pre-op diagnosis general: serrated adenoma/ internal hemorrhoids Surgeon: Susana Acosta Anesthesia Type: General:No Airway Complications: None Disposition: same day Prep: Miralax/Dulcolax Procedure Description: After informed consent was obtained, explaining risks of the procedure, including but not limits to: bleeding, infections, complications of anesthesia, perforations (which may require antibiotics and /or surgery and stay in the hospital), and abdominal pain/cramping. The patient was taken to the procedure room and placed in a left decubitous position. Monitors were applied and a time out was done. The patients name, date of , procedure, allergies to medications and metal in their body was reviewed. The patient was then sedated. Once sedated and comfortable a rectal exam was done. External exam was normal. Internal exam revealed a normal sphincter tone and no palpable masses. The prostate []. The previously lubricated Olympus scope was then introduced (see RN notes for scope number) and retrofelexed. [] internal hemorrhoids were identified. The scope was then advanced to the cecum without difficulty. The TI and appendiceal orifice were identified. The scope was then slowly retracted over [] minutes back into the rectum. Polyps: []. Diverticula: []. The mucosa is pink and healthy w/ a normal vascular pattern. The scope was removed, and the patient was woken up and taken back to Same day surgery in stable condition. The patient tolerated the procedure well and there were no immediate complications. Follow up: The patient should follow up in [] years, unless they develop changes in bowel habits or other new gastrointestinal complaints.
[2023-09-25] VITALS (18 sets, daily range): BP systolic 131–155; BP diastolic 80–103; PULSE 61–84; RESP 14–21; TEMP 36.1–36.7; O2SAT 90–98; BMI 35.9
[2023-09-25] MEDS: Lactated Ringers 1,000 ML 80 ML IV (07:37)
--- NOTE | 2023-09-25 07:43 | W.ANESVAS ---
Midline Placement Date Performed: 09/25/23 Procedure Time: 07:32 Requesting Provider: Sushant Montoya Procedure Location: Day Surgery Unit Sedation Given (Indicate Dose Given): No Sedation given Patient Mental Status: Awake Sterility: Hand Hygiene, Surgical Cap and Chlorhexidine Laterality: Right Insertion Site: Basilic Midline Device: PowerGlide Pro 20G Catheter Length: 10 cm Midline Procedure Procedure: 1% Lidocaine to skin and subcutaneous tissue with 25g needle and Catheter placed without resistance Dressing: Tegaderm Applied Blood Return: Present Flushes: Easily Ultrasound: Sterile probe cover and gel used Ultrasound Image Saved?: Yes Number of Attempts (See previous attempts in note section): 2 Procedure Tolerated: No Complications Procedure Outcome: Successful Performed By: Sushant Montoya
[2023-09-25] MEDS: Acetaminophen 500 MG TAB 1000 MG PO (07:45)
[2023-09-25] MEDS: Gabapentin 300 MG CAP 600 MG PO (07:45)
--- NOTE | 2023-09-25 07:47 | HPE_ITS ---
Date of service: 09/25/23 Time of Service: 07:47 Assessment and Plan Assessment and plan (1) External hemorrhoids: Status: Acute Assessment and plan: I discussed with the pt what hemorrhoids are and what they could expect during surgery.? It would be an out-pt procedure.? They would need someone to drive them home that day.? They may or may not having packing in after the surgery. Risks of surgery include but are not limited to: bleeding/infection/pneumonia/blood clots.? Possible postoperative urinary retention (particularly in men).? Complications of the anethesetic- which will be reviewed by anesthesia.? The rare complication of damage to the sphincters that would include loss of control or stricture. We d/w the importance of avoiding straining to move your bowels.? Straining can cause worsening of the hemorrhoids, recurrence, other ano-rectal problems, and diverticular disease. ?We d/w the importance of a high fiber diet, water, and regular exercise.? We reviewed the consideration of adding in a fiber supplement and how to use fiber. I also reviewed home care after surgery.? We talked about spasms after surgery, and the best way to control this is with topical analgesia and warm sitz baths.? Spasms last for about two weeks after surgery.? And really, the best treatment for spasms is to soak in a tub of warm water.? (2) Internal hemorrhoids: Status: Acute (3) JACQUELYN (obstructive sleep apnea): Status: Chronic (4) Brain aneurysm: Status: Acute (5) Difficult intravenous access: Status: Acute (6) Hypertension: Qualifiers: Hypertension type: secondary to endocrine disorders Qualified Code(s): I15.2 - Hypertension secondary to endocrine disorders (7) Hyperlipidemia: (8) Prediabetes: History of Present Illness Narrative: Patient is here today for internal and external hemorrhoidectomy they not having any chest pain or shortness of breath, currently.? They are not experiencing any fever or chills.? They deny any productive cough or upper respiratory tract infection signs or symptoms.? They are not having abdominal pain, or nausea and vomiting.? They have not had any changes in medications, past medical history or past surgical history since previously being seen in the office. They have not had any accidents or have been in the ER since the clinic pre-operative evaluation. ??I reviewed the procedure with the patient today, including risks and benefits of the procedure, and what they could expect at home for recovery.? All questions are answered to the patient?s satisfaction today, and they are stable to proceed with the proposed procedure. Her brain surgery was over a year ago. Wendy has been dealing with chronic internal/external hemorrhoid issues. She was previously set up for surgical intervention of the fall 2022 however this was postponed due to her needing treatment for brain aneurysm. This has been completed and she is ready to proceed with more finite treatment of her hemorrhoids. Discussed proceeding with an exam under anesthesia with possible external h emorrhoidectomy and internal hemorrhoidectomy versus banding. All questions were answered to patient's satisfaction and she wishes to proceed. Rectal exam was not performed today. Anesthesia: general (without airway) Previous surgical intolerances: None Previous surgical complications: None Pulmonary risk factors: None PFT's: None Planned procedure: Yes Sleep apnea risks: No Can climb one flight of stairs (12-13 steps) in less than 30 seconds without stopping and without symptoms: Yes The surgery proposed for this patient is: Low risk Active cardiac conditions: None ECHO: None Stress Test: None Active risk factors: None ASA (acetylsalicylic acid):Yes Beta blockers: No Anti-coagulation: N/A Medications to be held: Vitamins and supplements x 5 days prior Liraglutide day of surgery 58-year-old female with a history of prediabetes, chronic kidney disease, obesity, brain aneurysm status post coil, JACQUELYN and peripheral neuropathy presents to discuss proceeding with treatment for her chronic hemorrhoids. She was previously seen by Dr. Mota in September 2022 and they were planning on moving ahead with surgical intervention for treatment of her internal and external hemorrhoids. However unfortunately solicit been diagnosed with a brain aneurysm and was going to need brain surgery for this. So her procedure for her hemorrhoids was canceled. She describes having frequent bleeding of her hemorrhoids. She describes an incident where she had showered and was getting ready, she had not had a bowel movement and her hemorrhoids started bleeding. She also describes that when she has bowel movements maintaining hygiene is very difficult due to the extra tissue. Denies chest pain, palpitations, dyspnea or dyspnea with exertion. Denies personal or family history of adverse reactions to anesthesia. Denies any history of DE, stroke, seizures, bleeding or clotting disorders. Denies having any implanted metal. She recevied treatment for breast cancer in the past. Review of Systems All systems reviewed & are unremarkable except as noted in HPI and below PFSH All Active Problems (Updated 09/25/23 @ 07:51 by Susana Acosta DO) Internal hemorrhoids (Acute) Difficult intravenous access (Acute) Intractable back pain (Acute) Severe back pain (Acute) Acute medial meniscus tear of left knee (Acute ~10/07/22) Brain aneurysm (Acute) 2022 External hemorrhoids (Acute) Sessile colonic polyp (Acute) Tubular adenoma of colon (Acute) Screening for colon cancer (Acute) Acute lateral meniscal injury of left knee (Acute) JACQUELYN (obstructive sleep apnea) (Chronic) Left ACL tear (Acute ~03/2020) Medical History Constipation Lichen simplex chronicus Exophthalmos History of left breast cancer Sciatica Prediabetes Chronic kidney disease Peripheral neuropathy Lymphedema Left arm Hyperaldosteronism Right rotator cuff tendonitis Right lateral epicondylitis Trigger ring finger of right hand Biceps tendinitis of right shoulder s/p right shoulder arthroscopy DOS: 12/12/19 Arthritis of right acromioclavicular joint s/p right shoulder arthroscopy DOS: 12/12/19 Vulvar rash (12/11/13) lichen simplex chronicus, w/ features of psoriasis which pt has on hands and elsewhere. treated w/ steroids Tinnitus (10/27/15) Left ureteral stone (03/02/17) Irregular bleeding (05/14/14) currently treated w/ POPs, to amenorhea History of hyperparathyroidism (03/02/17) Bursitis of shoulder (12/30/12) Bilateral kidney stones (03/02/17) Abnormal auditory perception (10/27/15) Obesity Hypertension Psoriasis Proteinuria Impaired fasting glucose Kidney stone Hyperlipidemia Herpes, genital Fibrocystic breast Depression Attention deficit disorder (ADD) Hypomagnesemia Hx of hypoparathyroidism History of hypothyroidism Psoriasis Breast cancer Seroma complicating a procedure Leukocytosis Hypokalemia Surgical History Brain surgery within last 3 months angiogram for stent Hx of knee surgery History of ankle surgery Left Hx of shoulder surgery Left Hx of bilateral mastectomy Hx of shoulder surgery L arm clavicle and muscle Rotator cuff tear, right s/p right shoulder arthroscopy with arthroscopic biceps tenodesis DOS: 12/12/19 RIGHT THUMB ARTHROPLASTY (01/27/15) DR. KANG [facility] (~02/2021) Family History Mother Lymphoma Social History Smoking/Tobacco Use Status: Former Tobacco Use Quit Date: 02/20/92 Smoking risk assessment performed?: Yes Alcohol Intake: current Alcohol Intake frequency: a few times a week Drug use: Never Substance use type: does not use Housing: house Current gender identity: female Seatbelt use: always Do you feel safe at home: Yes (UTAP) Do you feel safe in your relationship?: Yes Meds Allergies and Home Medications Allergies Allergy/AdvReac Type Severity Reaction Status Date / Time sertraline (From Zoloft) Allergy Skin Rash Verified 09/25/23 06:51 Penicillins AdvReac Intermediate Thrush Verified 09/25/23 06:51 Home Medications ?Medication ?Instructions ?Recorded ?Confirmed ?Type diltiazem HCl 240 mg 240 mg PO HS 01/06/13 09/25/23 History capsule,extended release 24 hr fluoxetine 40 mg capsule (Prozac) 40 mg PO DAILY 01/06/13 09/25/23 History cholecalciferol (vitamin D3) 25 1,000 units PO DAILY 03/06/13 09/25/23 History mcg (1,000 unit) tablet ferrous sulfate 325 mg (65 mg 1 tab PO DAILY 01/26/14 09/25/23 History iron) tablet (Feosol) losartan 25 mg tablet 100 mg PO DAILY 10/24/17 09/25/23 History gabapentin 300 mg capsule 300 mg PO BID 07/27/19 09/25/23 History spironolactone 25 mg tablet 25 mg PO DAILY 07/27/19 09/25/23 History rosuvastatin 10 mg tablet (Crestor) 10 mg PO DAILY 09/24/20 09/25/23 History exemestane 25 mg tablet 25 mg PO DAILY 12/22/20 09/25/23 History calcium carbonate (Calcium 600) 600 mg PO DAILY 12/06/21 09/25/23 History aspirin 81 mg tablet,delayed 81 mg PO DAILY 09/19/22 09/21/23 History release acetaminophen 500 mg tablet 650 mg (1.3 x 500 mg) PO QID #0 05/21/23 09/25/23 Rx tabs docusate sodium 100 mg capsule 100 mg PO TID #0 caps 05/21/23 09/25/23 Rx (Colace) polyethylene glycol 3350 17 gram 17 g PO BID #0 ea 05/21/23 09/25/23 Rx oral powder packet ustekinumab 45 mg/0.5 mL 45 mg subcut Q12W 05/23/23 09/25/23 History subcutaneous syringe (Stelara) liraglutide 0.6 mg/0.1 mL (18 mg/3 1.2 mg subcut DAILY 08/06/23 09/25/23 History mL) subcutaneous pen injector semaglutide (weight loss) 1 mg/0.5 1 mg subcut Q7D 09/21/23 09/21/23 History mL subcutaneous pen injector (Wegovy) dibucaine 1 % rectal ointment 1 applic CA QID PRN #56 grams 09/24/23 Rx Exam Narrative Exam Narrative: PHYSICAL EXAM GENERAL APPEARANCE: Alert, healthy appearance, oriented, x 3,? in no acute distress HYDRATION: Well hydrated HEAD, EYES, EARS, NECK, THROAT: Head is normocephalic, pupils equal, round, reactive to light and accommodation, ocular movement intact, sclera clear and no jaundice. ?Dentition intact. LUNGS: normal respiration/normal chest excursion. ?Clear to auscultation bilaterally. ?No wheeze. ?HEART: Regular rate and rhythm. no murmurs ABDOMEN: soft and non-tender to palpation.? Normal bowel sounds.? Rectal exam shows nonthrombosed external hemorrhoids. Internal hemorrhoids are visualized. There is no signs of active bleeding today. Patient denies loss of control Results Last Vital Signs Temp 36.7 C 09/25/23 06:44 Pulse 84 09/25/23 06:44 Resp 16 09/25/23 06:44 BP 131/98 H 09/25/23 06:44 Pulse Ox 98 09/25/23 06:44 Time Spent Time spent with Patient: <40 minutes Time was spent: preparing to see the patient(eg.review tests), obtaining and/or reviewing separately otained hiistory, ordering medications,tests, procedures, referring, communicating with other health day care director, indepentently interpreting results, counseling the patient, care coordination and other
[2023-09-25] MEDS: Bupivacaine LIPOSOME/PF 133 MG/10 ML VIAL IJ (08:27)
[2023-09-25] MEDS: Bupivacaine 0.25% Pres-Free W/EPI 30 ML VIAL (08:27)
[2023-09-25] MEDS: Dibucaine 1% 28 GM TUBE TP (08:32)
--- NOTE | 2023-09-25 08:36 | HEM_PTH ---
PATIENT: Wendy Sandoval LOC: [facility] U#:[id number] AGE/SX: 58/F ROOM: RE09/25/[address]: Susana Acosta : 1965 BED: DIS: 09/25/2023 SPEC #: [id number] RECD: 09/25/23 12:40 STATUS: SPIKE REQ #: [id number] SNOW: 09/25/23 08:[address]: Susana Acosta DEPT: Surgical Specimen RECD BY: Adriane Asencio ENTERED: 09/25/23 12:41 SP TYPE: Hem OTHR DR: Trinh Coates Tissues: 1 - HEMORRHOIDS Procedures: GROSS AND MICRO LEVEL 3 Comments: [id number]
--- NOTE | 2023-09-25 09:25 | ROE_ITS ---
Date of service: 09/25/23 Time of Service: 09:25 Operative Note Operative Note DATE OF PROCEDURE: 09/25/23 PRE-OP DIAGNOSIS: Internal and external grade 2 bleeding hemorrhoids x 3 column POST-OP DIAGNOSIS: same PROCEDURE: Open and internal hemorrhoid feed x 3 columns SURGEON: Susana Acosta ANESTHESIA TYPE: Local By Surgeon and General LMA/ETT Refer to Anesthesia Record ESTIMATED BLOOD LOSS: 5 PATHOLOGY: other COMPLICATIONS: None Patient was transported to: PACU Patient's condition: stable Procedure Description: The patient has a history of chronic bleeding hemorrhoids and is here today for hemorrhoidectomy, after having failed outpatient conservative medical management. Due to other medical comorbidities she does need to remain on life long anticoagulation and thus exacerbating her problems. She is on Colace and MiraLAX and stool softeners. I urged her to consider also adding in a fiber supplement. I discussed with the pt what hemorrhoids are and what they could expect during surgery.? It would be an out-pt procedure.? They would need someone to drive them home that day.? They may or may not having packing in after the surgery- this will pass on its own and does not need to be removed Risks of surgery include but are not limited to: bleeding/infection/pneumonia/blood clots.? Possible postoperative urinary retent ion (particularly in men).? Complications of the anethesetic- which will be reviewed by anesthesia.? The rare complication of damage to the sphincters that would include loss of control or stricture. We d/w the importance of avoiding straining to move your bowels.? Straining can cause worsening of the hemorrhoids, recurrence, other ano-rectal problems, and diverticular disease. ?We d/w the importance of a high fiber diet, water, and regular exercise.? We reviewed the consideration of adding in a fiber supplement and how to use fiber. I also reviewed home care after surgery.? We talked about spasms after surgery, and the best way to control this is with topical analgesia and warm sitz baths.? Spasms last for about two weeks after surgery.? And really, the best treatment for spasms is to soak in a tub of warm water.? Patient is brought to the operative room suite and placed in the supine position. Anesthesia is administered per the department of anesthesia. Patient is then placed in the prone position with all bony surfaces padded. Patient is prepped and draped in the usual sterile fashion using a Betadine scrub solution. Timeout is performed. Antibiotics are not indicated. Patient is then placed in the jackknife position. She does have both internal and external hemorrhoids grade 2. The internal hemorrhoids shows significant erosion and irritation. I also think she does have a minor amount of incomplete mucosal prolapse as well. Each of the 3 columns is grasped and attended to in the same fashion. Stay sutures placed with 4-0 Vicryl. Elliptical incision is made through the skin and Metzenbaums is used to excise the internal and external hemorrhoidal complex down to but not including the external sphincters. The incision is then closed in a running fashion. No bleeding is noted. There is 1 small additional internal hemorrhoid that is banded. Dibucaine impregnated Gelfoam was placed in the anal rectal vault. No bleeding is noted. Patient tolerated procedure well without complication and transferred to the recovery in stable condition.
--- NOTE | 2023-09-25 09:28 | W.ANESPOSTOP ---
Postoperative Evaluation Date, Time and Location Date Performed: 09/25/23 Time Performed: :28 Patient Location: PACU Vital Signs Most Recent Imported Vital Signs: Most Recent Vital Signs Temp Pulse Resp BP Pulse Ox 36.3 C L 68 16 146/99 H 95 09/25/23 09:17 09/25/23 09:17 09/25/23 09:17 09/25/23 09:17 09/25/23 09:17 Pain Score Most Recent Pain Score: Most Recent Pain Score Pain Level 0 09/25/23 09:17 Assessment Mental Status: Arousable with meaningful communication Airway and Respiratory Function: Patent airway with normal (patient baseline) respiratory exam Cardiovascular Function: Hemodynamically Stable Hydration Status: Adequately Hydrated Nausea & Vomiting: No Nausea or Vomiting Pain: Pain is tolerable per patient Peripheral Nerve Block: Patient did not receive a nerve block
[2023-09-25] MEDS: Ketorolac 15 MG/ML VIAL IVP (09:41)
--- OUTSIDE RECORDS SUMMARY | 2023-09-25 11:40 | XMS_ITS | Encounter Summary ---
Author Organization [facility] [address] Care Team Providers Care Paper Slitter Name Role Phone Trinh Coates MD Primary Care Provider [phone] Encounter Details Date Type Department Care Team (Late st Contact Info) Description 07/30/2023 Telephone [place] [address] Felisa Chavis Social History Tobacco [...] 01/22/2024 10:30 AM EST Appointment Mammography/[place] [address] Ladi Mendosa MD [facility] DR HEMATOLOGY [place] [address] 01/30/2024 11:30 AM EST Office Visit Dermatology at [facility] [address] [place] [address] Nilda Luis MD [facility] [address] 02/14/2024 7:30 AM EST [place]ment [place] [address] Joanna Watts MD [facility] [place] [address] documented as of this encounter Visit Diagnoses Not on filedocumented in this encounter Care Teams Paper Slitter Relationship Specialty Start Date End Date Trinh Coates MD [facility] [address] [place] [address] PCP - General 01/11/10 documented as of this encounter
--- OUTSIDE RECORDS SUMMARY | 2023-09-25 11:40 | XMS_ITS | Encounter Summary ---
Author [place] [address] Care Team Providers Care Mud Analysis Well Logging Operator Name Role Phone Trinh Coates MD Primary Care Provider [phone] Reason for Visit * Reason Comments Prior Authorization Stelara 45mg/0.5ml s osy Encounter Details Date Type Department Care Team (Late st Contact Info) Description 09/07/2023 Specialty [place] [address] Valeria Posadas, MOBILE PET GROOMER Social History Tobacco Use Types Packs/Day Years [...] as of this encounter Progress Notes * Valeria Posadas CPHT - 09/07/2023 4:17 PM EDT [facility], Medication Prior Authorization Submission Patient: Wendy Sandoval Patient : 1965 [facility] [address] ([facility]) Medication Name: STELARA 45 MG/0.5 ML SUBCUTANEOUS SYRINGE Medication ID: [id number] Subscriber Insurance: [employer] (ADV) Subscriber Insurance Comment: Phone: Fax: Physician: NILDA LUIS Physician Comment: Sent Via: Fax La: Dion#: Medication Strength Frequency Requested: INJECT 1 SYRINGE SUBCUTANEOUSLY EVERY 12 WEEKS. REFRIGERATE. DO NOT FREEZE Qty/Day Supply: New Start: Renewal Diagnosis & ICD-10 Code: Psoriasis L40.9 Patient Notified: No Submission Notes: None Valeria Posadas CPHT 09/07/23 4:18 PM * Tsering Edward CPHT - 09/07/2023 4:17 PM EDT [facility], Medication Prior Authorization Submission Patient: Wendy Sandoval Patient : 1965 Patient Address: [address] [place] [address] (home) Medication Name: STELARA 45 MG/0.5 ML SUBCUTANEOUS SYRINGE Medication ID: [id number] Subscriber Insurance: 1,2,3 [facility] Subscriber Insurance Comment: Phone: Fax: Physician: NILDA LUIS Physician Comment: Sent Via: Fax La: Dion#: Faxed to [facility] at [phone] Medication Strength Frequency Requested: INJECT 1 SYRINGE SUBCUTANEOUSLY EVERY 12 WEEKS. REFRIGERATE. DO NOT FREEZE Qty/Day Supply: New Start: Renewal Diagnosis & ICD-10 Code: Psoriasis L40.9 Patient Notified: No Submission Notes: None Tsering Edward CPHT 09/19/23 9:12 AM * Valeria Posadas CPHT - 09/07/2023 4:17 PM EDT [facility], Prior Authorization Approval Medication Name: STELARA 45 MG/0.5 ML SUBCUTANEOUS SYRINGE Medication ID: [id number] Approval Dates: 09/11/2023 to 09/10/2024 Insurance requirements/notes: - Must fill through [facility] Specialty Other Notes: None Case/Reference #: [id number] Approval notification Received via: Fax Copay: unknown Copay assistance: Other (Enter Comment) Copay Notes: Unable to obtain copay information as patient must fill through [facility] Specialty Insurance mandated Pharmacy: [facility] Specialty Fillable at [facility] Specialty Pharmacy: No Patient Notified: No Pharmacy staff will be reaching out to the patient to inform them of their medication's approval [facility] [employer] insurance. If applicable, a pharmacist will speak with the patient to offer our specialty pharmacy services and to arrange delivery of their medication. Valeria Posadas CPHT 09/20/23 9:51 AM documented in this encounter Plan of Treatment Upcoming Encounters Date Type Department Care Team (Late st Contact Info) Description 01/22/2024 10:30 AM EST Appointment Mammography/[place] [address] Ladi Mendosa MD [facility] DR HEMATOLOGY [place] [address] 01/30/2024 11:30 AM EST Office Visit Dermatology at [facility] [address] [place] [address] Nilda Luis MD [facility] [place] [address] 02/14/2024 7:30 AM EST Appointment [place] [phone] Joanna Watts MD [facility] [place] [address] documented as of this encounter Visit Diagnoses Not on filedocumented in this encounter Care Teams Mud Analysis Well Logging Operator Relationship Specialty Start Date End Date Trinh Coates MD [facility] [address] [place] [address] PCP - General 01/11/10 documented as of this encounter
--- OUTSIDE RECORDS SUMMARY | 2023-09-25 11:40 | XMS_ITS ---
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 I told her that if it is [...] treatments are documented for this patient in [facility]. Treatments may have been administered in another system. Lifetime Dose Tracking * Chemical Lifetime Dose Automatic Entry Manual Entr y doxorubicin 236.163 mg/m2 (439.2 mg) 236.163 mg/m2 (4 39.2 mg) 0 mg/m2 (0 mg)
--- OUTSIDE RECORDS SUMMARY | 2023-09-25 11:40 | XMS_ITS | Encounter Summary ---
Author Organization [facility] Address [facility] [place] [address] Care Team Providers Care Quality Assurance Coach Name Role Phone Trinh Coates MD Primary Care Provider [phone] Reason for Visit * Reason Comments Skin Cancer Examination Encounter Details Date Type Department Care Team (Late st Contact Info) Description 07/17/2023 11:00 AM EDT Office Visit Dermatology at [place] [address] [place] [address] Jay Luis MD [facility] [place] [address] Psoriasis; High risk medication use; Neoplasm of [...] pathology results will be released to your [facility] portal at the same timethey are [...] non-urgent questions, please call the clinic at [phone] (weekdays, 8 am to 5 pm). After 5 pm, and on weekends and holidays, for urgent concerns that cannot wait until the next business day, please call the hospital at [phone] and ask for the [facility]cher [facility] On-Call. documented in this encounter Progress Notes [...] - psoriasis Social History Occupation: Works at [employer] Pre-Procedure Questions Details Allergy to lidocaine, epinephrine, [...] continue to monitor. 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 - Explained that these are hereditary and adult-acquired. Reassured patient of benign nature. No treatment necessary. E. Milia - Firm, round, white subcutaneous papules on the right lower eyelid. - Discussed benign nature and provided reassurance. No treatment necessary. - Noted option of cosmetic removal with our cosmetic provider or instructional support assistant; patient not interested in pursuing at this [...] 6 months for SCS []Note routed to secretary receptionist []Recall placed in scheduling system [x]Appointment scheduled at checkout Scribe attestation: Samantha Sanchez RN has performed the documentation for this encounter in the presence of and acting as a scribe for JAY LUIS MD. I performed the above scribed service and agree with the accuracy of the documentation in this encounter. Reviewed and signed by: JAY LUIS MD Dermatology [facility] * Jay Luis MD - 07/17/2023 11:00 [...] 01/22/2024 10:30 AM EST Appointment Mammography/[place] [phone] Ladi Mendosa MD [facility] HEMATOLOGY [place] [address] 01/30/2024 11:30 AM EST Office Visit Dermatology at [facility] [address] [place] [phone] Jay Luis MD [facility] [place] [place] [address] 02/14/2024 7:30 AM EST [place] [phone] Joanna Watts MD [facility] [place] [address] documented as of this encounter Procedures Procedure Name Priority Date/Time Associated Diagnosis Comments SPECIMEN TO PATHOLOGY Routine 07/17/2023 12:46 PM EDT Neoplasm of unspecified behavior of bone, soft tissue, and skin SURGICAL PATHOLOGY REPORT Routine 07/17/2023 11:35 AM EDT documented in this encounter Results * Specimen to Pathology (07/17/2023 12:46 PM EDT) AP Specimen 07/17/2023 12:4 6 PM EDT 07/17/2023 12:46 PM EDT [facility] LABORATORY - 07/17/2023 12:46 PM EDT Specimen requisition ordered. ??Separate Pathology report to follow Jay Luis MD PATHOLOGY/CYTOLOGY ORDERABLES [facility] [place] [address] * QuantiFERON-TB Gold (07/17/2023 12:07 PM EDT) Quantiferon Nil 0.029 IU/mL [facility] QFT TB Ag1-Nil -0.003 IU/mL [facility] QFT TB Ag2-Nil 0.006 IU/mL [facility] Quantiferon Mitogen-Nil 9.971 IU/mL [facility] Quantiferon-TB Gold Negative Negative [facility] Quantiferon Tb Interp M. tuberculosis infection NOT likely A [...] affect immune function, or other immunological factors. [facility] Blood 07/17/2023 12:0 7 PM EDT 07/18/2023 11:35 AM EDT Narrative Resulting Agency Comment Spec In Lab Jay Luis MD CHEMISTRY ORDERABLE S [facility] [place] [address] * (ABNORMAL) Comprehensive metabolic panel (non-fasting) (07/17/2023 12:07 PM EDT) Glucose 91 65 - 199 mg/dL [facility] Comment:Diabetes: >=200 mg/d L plus symptoms Blood Urea Nitrogen 34(H) 8 - 18 mg/dL [facility] Creatinine 1.82(H) 0.70 - 1.20 mg/dL [facility] Sodium 143 135 - 145 mmol/L [facility] Potassium 4.7 3.5 - 5.0 mmol/L [facility] Comment: Please note: ??Patients with WBC >100,000 may have falsely elevated Potassium levels. ??For accurate Potassium quantification in these patients send serum separator tube ([facility] top) for subsequent determinations. ??Contact the Clinical Chemistry Laboratory if there are any questions. Chloride 107 98 - 107 mmol/L [facility] Carbon Dioxide 22 22 - 31 mmol/L [facility] Anion Gap 14 5 - 15 mmol/L [facility] Calcium 9.5 8.5 - 10.5 mg/dL [facility] Protein, Total 7.1 6.1 - 8.0 g/dL [facility] Albumin 4.5 3.2 - 5.2 g/dL [facility] Aspartate Aminotransferase 15 0 - 30 unit/L [facility] Alanine Aminotransferase 16 0 - 30 unit/L [facility] Alkaline Phosphatase 111(H) 35 - 105 unit/L [facility] Bilirubin, Total 0.5 0.2 - 1.3 mg/dL [facility] Est Glomerular Filtration Rate 31(L) >=60 mL/min/1. 73 m?? [facility] Comment: This patient's estimated GFR [...] Lab Jay Luis MD CHEMISTRY ORDERABLE S [facility] [place] [address] * Surgical Pathology Report (07/17/2023 11:35 AM EDT) Final Diagnosis [id number] ? Location: [facility] The signing pathologist has (i) examined the relevant preparation(s) for the specimen(s) and (ii) rendered or confirmed the diagnosis(es). . ?Surgical Pathology DIAGNOSIS L eft medial lower leg, skin shave biopsy: - Pigmented macular ??seborrheic keratosis Electronically signed by: ?Oscar RENEE, PhD, Pk [place] Verified: ??07/24/2023 8:42 ?? Dermatopathologist, Bone & Soft Tissue Pathologist Performed at: ??-[facility] Dept. of Pathology, [place] [address] Devops Engineer: Yoselin Pimentel MD, FCAP, ??CLIA Certificate: [id number] SPECIMEN(S) SUBMITTED A - left medial lower [...] as follows: ?A1: ??Tips ?A2: ??Body ??sdy 07/24/2023 8:[address] [facility] SPECIMEN FROM SKIN / Unknown 07/17/2023 11:35 AM EDT 07/17/2023 11:35 AM EDT Jay Luis MD PATHOLOGY/CYTOLOGY ORDERABLES Performing Organization Address City/State/[facility] Co de Phone Number [facility] [place] [address] documented in this encounter Visit Diagnoses Diagnosis [...] cyst documented in this encounter Care Teams Quality Assurance Coach Relationship Specialty Start Date End Date Trinh Coates MD [address] [place] [address] PCP - General 01/11/10 documented as of this encounter
--- OUTSIDE RECORDS SUMMARY | 2023-09-25 11:40 | XMS_ITS | Encounter Summary ---
Author Organization [facility] [place] [address] Care Team Providers Care Senior Information Developer Name Role Phone Trinh Coates MD Primary Care Provider [phone] Encounter Details Date Type Department Care Team (Latest Contact Info) Description 07/17/2023 11:50 AM EDT Laboratory Appointment Lab at [place] [address] [place] [phone] High risk medication use Social History Tobacco [...] 10:30 AM EST Appointment Mammography/[place] [phone] Ladi Mendosa MD [facility] HEMATOLOGY [place] [address] 01/30/2024 11:30 AM EST Office Visit Dermatology at [facility] [address] [place] [phone] Nilda Luis MD [facility] [place] [address] 02/14/2024 7:30 AM EST App[place]ment [place] [phone] Joanna Watts MD [facility] [place] [address] documented as of this encounter Procedures Procedure Name Priority Date/Time Associated Diagnosis Comments QUANTIFERON-TB GOLD Routine 07/17/2023 1 2:07 PM EDT High risk medication use HEMOGRAM Routine 07/17/2023 12:07 PM EDT High risk medication use DIFFERENTIAL, AUTOMATED Routine 07/17/2023 12:07 PM EDT High risk medication use CBC (WITH DIFF) Routine 07/17/2023 12:07 PM EDT High risk medication use COMPREHENSIVE METABOLIC PANEL Routine 07/17/2023 12:07 PM EDT High risk medication use documented in this encounter Results * (ABNORMAL) Differential, Automated (07/17/2023 12:07 PM EDT) Neutrophil % 60.1 % [facility] Neutrophil Absolute 5.99 1.70 - 6.10 x10(3)/mc L [facility] Lymph % 21.1 % [facility] Lymphocytes Abs 2.1 0.9 - 3.2 x10(3)/mc L [facility] Monocyte % 11.5 % [facility] Monocyte Abs 1.2(H) 0.3 - 0.9 x10(3)/ L [facility] Eos % 5.4 % [facility] Eosinophils Abs 0.5(H) 0.0 - 0.4 x10(3)/ L [facility] Basophil % 1.6 % [facility] Baso Absolute 0.2(H) 0.0 - 0.1 x10(3)/ L [facility] Immature Gran % 0.30 % [facility] Comment: Immature granulocytes(IG's)percentage and absolute count will include metamyelocytes, myelocytes, and promyelocytes. Blood smears from CBCs yielding IG's will be scanned manually for concordance. If this scan disagrees with the automated IG or if promyelocytes are noted, a manual differential will be performed. Immature Gran Absolute 0.03 0.00 - 0.04 x10(3)/[facility] Blood 07/17/2023 12:0 7 PM EDT 07/17/2023 4:05 PM EDT Narrative Resulting Agency Comment Spec In Lab Nilda Luis MD HEMATOLOGY ORDERABL ES [facility] [place] [address] * (ABNORMAL) Hemogram (07/17/2023 12:07 PM EDT) White Blood Cell 10.0(H) 4.0 - 9.5 x10(3)/ L [facility] Red Blood Cell 3.91(L) 4.00 - 5.21 x10(6)/[facility] Hemoglobin 12.3 11.7 - 15.5 g/dL [facility] Hematocrit 39.0 35.7 - 45.8 % [facility] Mean Cell Volume 99.7(H) 82.6 - 94.[address] [facility] Mean Cell Hemoglobin 31.5 27.1 - 32.[address] [facility] Mean Cell Hemoglobin Concentration 31.5(L) 31.7 - 35.0 g/dL [facility] Platelet 344 145 - 357 x10(3)/mc L [facility] RDW Standard Deviation 53.5(H) 37.0 - 46.[address] [facility] RDW coefficient of variation 14.4(H) 11.5 - 14.1 % [facility] Mean Platelet Volume 9.8 7.6 - 12.[address] [facility] NRBC% auto 0.0 % [facility] NRBC Absolute 0.000 0.000 - 0.000 x10(3)/mc L [facility] Blood 07/17/2023 12:0 7 PM EDT 07/17/2023 4:05 PM EDT Narrative Resulting Agency Comment Spec In Lab Nilda Luis MD HEMATOLOGY ORDERABL ES [facility] [place] [address] * (ABNORMAL) Comprehensive metabolic panel (non-fasting) (07/17/2023 12:07 PM EDT) Glucose 91 65 - 199 mg/dL [facility] Comment:Diabetes: >=200 mg/d L plus symptoms Blood Urea Nitrogen 34(H) 8 - 18 mg/dL [facility] Creatinine 1.82(H) 0.70 - 1.20 mg/dL [facility] Sodium 143 135 - 145 mmol/L [facility] Potassium 4.7 3.5 - 5.0 mmol/L [facility] Comment: Please note: ??Patients with WBC >100,000 may have falsely elevated Potassium levels. ??For accurate Potassium quantification in these patients send serum separator tube (gold top) for subsequent determinations. ??Contact the Clinical Chemistry Laboratory if there are any questions. Chloride 107 98 - 107 mmol/L [facility] Carbon Dioxide 22 22 - 31 mmol/L [facility] Anion Gap 14 5 - 15 mmol/L [facility] Calcium 9.5 8.5 - 10.5 mg/dL [facility] Protein, Total 7.1 6.1 - 8.0 g/dL [facility] Albumin 4.5 3.2 - 5.2 g/dL [facility] Aspartate Aminotransferase 15 0 - 30 unit/L [facility] Alanine Aminotransferase 16 0 - 30 unit/L [facility] Alkaline Phosphatase 111(H) 35 - 105 unit/L [facility] Bilirubin, Total 0.5 0.2 - 1.3 mg/dL [facility] Est Glomerular Filtration Rate 31(L) >=60 mL/min/1. 73 m?? [facility] Comment: This patient's estimated GFR [...] Lab Nilda Luis MD CHEMISTRY ORDERABLE S [facility] [place] [address] * QuantiFERON-TB Gold (07/17/2023 12:07 PM EDT) Quantiferon Nil 0.029 IU/mL [facility] QFT TB Ag1-Nil -0.003 IU/mL [facility] QFT TB Ag2-Nil 0.006 IU/mL [facility] Quantiferon Mitogen-Nil 9.971 IU/mL [facility] Quantiferon-TB Gold Negative Negative [facility] Quantiferon Tb Interp M. tuberculosis [...] other immunological factors. [facility] Blood 07/17/2023 12:0 7 PM EDT 07/18/2023 11:35 AM EDT Narrative Resulting Agency Comment Spec In Lab Nilda Luis MD CHEMISTRY ORDERABLE S [facility] [place] [address] documented in this encounter Visit Diagnoses Diagnosis High risk medication use Encounter for long-term (current) use of other medications documented in this encounter Care Teams Senior Information Developer Relationship Specialty Start Date End Date Trinh Coates MD [address] [place] [address] PCP - General 01/11/10 documented as of this encounter
--- OUTSIDE RECORDS SUMMARY | 2023-09-25 11:40 | XMS_ITS | Encounter Summary ---
Author Organization [facility] Address [facility] [place] [address] Care Team Providers Care Mental Tester Name Role Phone Trinh Coates MD Primary Care Provider [phone] Reason for Visit * Reason Onset Date Comments Appointment 05/25/2023 Encounter Details Date Type Department Care Team (Late st Contact Info) Description 05/25/2023 [place] [address] Joanna Watts MD [facility] [place] [address] Appointment Social History Tobacco Use Types Packs/Day [...] 01/22/2024 10:30 AM EST Appointment Mammography/DXA at [place] [phone] Ladi Mendosa MD [facility] [place] [address] 01/30/2024 11:30 AM EST Office Visit Dermatology at [address] [phone] Nilda Luis MD [facility] [place] [address] 02/14/2024 7:30 AM [place] [address] Joanna Watts MD [facility] [place] [address] documented as of this encounter Visit Diagnoses Not on filedocumented in this encounter Care Teams Mental Tester Relationship Specialty Start Date End Date Trinh Coates MD [facility] [address] [address] PCP - General 01/11/10 documented as of this encounter
--- OUTSIDE RECORDS SUMMARY | 2023-09-25 11:40 | XMS_ITS | Continuity of Care Document ---
Author Organization [place] - [facility] Address [address] [place] [address] Care Team Providers Care Physical Education Instructor Name Role Phone MOO WOODALL Child Welfare Director KSENIA NAZARIO Orthopedic Surgeon PRISCILA CALIXTO Neurosurgeon JAY BARRAZA Wind Turbine Service Technician RANDY MAYFIELD Medical Oncologist Assessment No assessment recorded. Plan of Treatment Reminders Order Date Submit Date Provider Last Modified By Organization Details Last Modified Time Details Appointments Follow Up 30 2023 03:00P Yannick Coates Not available Not available Not available Lab BMP, serum or plasma 2023 024 [facility] (Registration ), [address] [place] [address] [place], [address], 09/09/2023 19:38:34 magnesium , serum or plasma 2023 024 [facility] (Registration ), [address] [place] [address] [place], [address], 09/09/2023 19:38:19 Referral None recorded. Procedures None recorded. Surgeries None recorded. Imaging None recorded. Medication Orders Victoza 3-Steve 0.6 mg/0.1 mL (18 mg/3 mL) subcutane ous pen injector 2023 024 [facility], [address] [place], [address], 09/07/2023 10:19:53 Wegovy 0.25 mg/0.5 mL subcutane ous pen injector 2023 024 [facility], [address] [place], [address], 09/07/2023 11:55:02 Wegovy 0.5 mg/0.5 mL subcutane ous pen injector 2023 024 [facility], [address] [place], [address], 09/07/2023 11:57:35 Wegovy 1 mg/0.5 mL subcutane ous pen injector 2023 024 [facility], [address] [place], [address], 09/07/2023 11:57:35 Patient TargetsNo targets recorded. Patient Instructions Encounter Date Encounter Id Patient Instructions Last Modified By Organization Details Last Modified Time 09/07/2023 [id number] diet Not available 09/06 10:19:51 exercise Not available 2023 10:19:51 Reason for Referral None Reported. Results Created Date Observation Date Name Description Value Unit Range Abnormal Flag LastModifiedBy Organization Detail LastModifiedTime 09/04/19 24 09/04/2023 XR, knee, 3 view Patien t Name: Tosin Palacio Unit #: [id number] Loc: [facility] Orderi ng Provid er: Ksenia Nazario M.D. Accoun t #: [id number] Status : PRE CLI Primar y Care Provid er: Trinh Coates M.D. Date of Exam: Sex: F Admiss ion Date: : 1965 Age: 58 Exam(s ) XR KNEE LT 2V AP,LAT EXAM: XR KNEE LT 2V AP,LAT CLINIC AL HISTOR Y: F/U KNEE SURGER Y. TECHNI QUE: 2D digita l imagin g was perfor med. COMPAR ANGELINA: CR XR KNEE LT 2V AP,LAT from 2022 FINDIN GS: Two views- AP and latera l No eviden ce of fractu re but there is a promin ent joint effusi on again noted. Again noted is eviden ce of prior a seal surger y with interv al revisi on, as there are now 2 identi kee fixati on plates along the outer cortex of the distal latera l femora l metaph ysis (previ ously was a single plate on the 2022 images ). In additi on, the tibial channe l has been deep end and the fixati on but min is locate d more caudal ly than on the previo us images . There is signif icant narrow ing of the medial compar tment eviden t on the weight -beari ng view and margin al osteop hytes off the medial compar tment, more so than previo us. The latera l compar tment con tinues to exhibi t normal height . Bone densit y normal . No osseou s lesion s. IMPRES KENDRA: Compar ed to images of 2022 there has been interv al revisi on of the ACL graft which was shown to be discon tinuou s-torn on MRI scan of 2022. There has been progre ssion of degene rative change in the medial compar tment of the knee. There is a joint effusi on again noted in the suprap atella r bursa. DATA REPOSI TORY: RADIAT ION DOSE DELIVE RED: Ordere d By: Ksenia Nazario M.D. CC: ------ ------ ------ ------ ------ ------ ------ ------ ------ ------ ------ ------ - Dictat ed By: Renny Pfeiffer M.D. [id number] Transc ribed By: Jennifer Pfeiffer MD 1056 This is privil eged, confid ential inform ation intend ed only for the provid er named. Any use or distri bution by any person other than this provid er is strict ly prohib ited. If you receiv e this report in error, please notify us immedi alicja at and return the origin al report to us at the addres s above. Thank- you. [facility] [address] , [place], [address] 09/05/2023 08:09:45 Result Notes None recorded. Problems Name Status Onset Date Resolution Date Notes Provider Name and Address Organization Details Recorded Time Hyperlipidemi a Active 1999 on statin MD [address], [facility] [address] , [facility] 4 20:39:05 Essential hypertension Active [address], [facility] [address] , [facility] 4 20:37:05 Obstructive sleep apnea syndrome Active 2006 CPAP MD [address], [facility] [address] , [facility] 4 20:44:49 Psoriasis Active [address], [facility] [address] , [facility] 4 20:44:11 History of urinary stone Active [address], [place], [address] , [facility] 4 20:38:50 Proteinuria Active [address], [place], [address] , [facility] 4 20:43:58 Herpesvirus infection Active 2009 valtrex MD [address], [facility] [address] , [facility] 4 15:46:17 Obesity Active [address], [address] 4 20:44:39 Attention deficit hyperactivity disorder, predominantly inattentive type Active 2012 no medications MD [address], [place] [address] , [facility] 4 20:33:36 Exophthalmos Active [address], [address] 4 20:37:18 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 Problem Code: R13.10; Problem Code Type: ICD-10; Not Available [facility] 3 03:58:22 Adult health examination Active [address], [facility] [id number] [place] [address] 4 10:10:24 Increased frequency of urination Completed 201608/30/2016 08/23/2016 - Comments only - Trinh Coates MD - We will check UA to make sure that there is no blood in her urine. If urine culture is negative, or symptoms do not resolve with Cipro 500 twice a day for 7 days, would proceed with pelvic/bladde r ultrasound. Problem Code: R35.0; Problem Code Type: ICD-10; Not Available [facility] 3 03:58:22 Hypokalemia Completed 201602/21/2017 Problem Code: E87.6; Problem Code Type: ICD-10; Not Available [facility] 3 03:58:22 Left side sciatica Active [address], [facility] [address] , [facility] 4 20:39:31 Personal history of primary malignant neoplasm of breast Active 2017 left 02/2017: node positive, s/p BL mastectomy and adjuvant chemo MD [address], [facility] [address] , [facility] 4 20:42:54 Ulceration of vulva Completed 201711/26/2017 11/12/2017 - Comments only - Trinh Coates MD - likely herpes. Viral culture obtained. Start VALTREX 500 mg po BID for 3 days. If culture negative and not improving, to [facility]. I told her that if it is herpes she needs to let her oncologist know prior to this weeks chemotherapy dosing. Problem Code: N76.6; Problem Code Type: ICD-10; Not Available [facility] 3 03:58:23 Prediabetes Active [address], [facility] [address] , [facility] 4 20:43:02 Lymphedema Active 2018 Left arm MD [address], [place], [address] , [facility] 4 20:40:08 Candidiasis of vagina Completed 201807/31/2018 Problem Code: B37.3; Problem Code Type: ICD-10; Not Available [facility] 3 03:58:23 Chronic kidney disease stage 3B Active [address], [place], [address] , [facility] 4 20:36:52 Pain in left arm Completed 201903/21/2019 Problem Code: M79.602; Problem Code Type: ICD-10; Not Available [facility] 3 03:58:23 Pre-surgery evaluation Completed 201904/21/2019 04/07/2019 - Comments only - Trinh Coates MD - she is medically stable for upcoming low risk surgery. Problem Code: Z01.818; Problem Code Type: ICD-10; Not Available [facility] 3 03:58:24 Fatigue Completed 201907/18/2019 07/04/2019 - Comments only - Trinh Coates MD - will check CBC and ferritin. Continue CPAP. Try stopping atorvastatin for few weeks, call me if symptoms are better off. Problem Code: R53.83; Problem Code Type: ICD-10; Not Available [facility] 3 03:58:24 Benign paroxysmal positional vertigo Completed 201908/29/2019 Problem Code: H81.10; Problem Code Type: ICD-10; Not Available [facility] 3 03:58:24 Other idiopathic peripheral neuropathy NOS Active 2019 gabapentin MD [address], [place], [address] , [facility] 4 20:41:49 Acute bronchospasm Completed 202012/03/2020 11/19/2020 - Comments only - Trinh Coates MD - pollo woodall. Albuterol with spacer 2 puffs q 4-6 hours prn Prednisone 40 mg daily for 5 days, then 20 mg daily for 5 days. Problem Code: J98.01; Problem Code Type: ICD-10; Not Available [facility] 3 03:58:24 Acute stress disorder Completed 202106/29/2021 Problem Code: F43.0; Problem Code Type: ICD-10; Not Available [facility] 3 03:58:24 Active immunization Completed 202108/30/2021 Problem Code: Z23; Problem Code Type: ICD-10; Not Available [facility] 3 03:58:24 Dysuria Completed 202103/01/2023 11/17/2021 - Comments only - Tien Bunn RPA - Symptoms consistent with uncomplicated UTI. Urine positive for leukocytes and blood. We will send for culture. Empiric antibiotic. She is prone to vaginal candidiasis so we will send Diflucan to have on hand. She will call if symptoms fail to improve over the next several days. Problem Code: R30.0; Problem Code Type: ICD-10; MD [address], [facility] [address] , [facility] 4 20:36:56 Family history of neurological disorder Completed 202103/01/2023 02/16/2022 - Unchanged - Trinh Coates MD - MRA brain ordered given 3 family members, including BOTH parents with brain aneurysms. Problem Code: Z82.0; Problem Code Type: ICD-10; MD [address], [facility] [address] , [facility] 4 20:37:27 Adjustment disorder Completed 202103/01/2023 02/16/2022 - Comments only - Trinh Coates MD - supportive listening Problem Code: F43.20; Problem Code Type: ICD-10; MD [address], [place], [address] , [facility] 4 20:32:51 Imaging of central nervous system abnormal Completed 202203/01/2023 Problem Code: R90.89; Problem Code Type: ICD-10; MD [address], [facility] [address] , [facility] 4 20:39:23 Bilateral acquired absence of breast Active 2022 TRINH COATES MD [address], [place], [address] , [facility] 4 20:33:48 Disorder of skin and/or subcutaneous tissue Completed 202008/12/2021 Problem Code: L98.9; Problem Code Type: ICD-10; Not Available [facility] 3 03:58:28 Renal function tests outside reference range Completed 201712/03/2017 Problem Code: R94.4; Problem Code Type: ICD-10; Not Available [facility] 3 03:58:29 Hypocalcemia Completed 201710/19/2017 Problem Code: E83.51; Problem Code Type: ICD-10; Not Available [facility] 3 03:58:29 Paresthesia Completed 201511/25/2015 Problem Code: R20.2; Problem Code Type: ICD-10; Not Available [facility] 3 03:58:29 Hyperkalemia Completed 201711/15/2022 Problem Code: E87.5; Problem Code Type: ICD-10; Not Available [facility] 3 03:58:30 Onychomycosis due to dermatophyte Completed 201408/09/2020 Problem Code: B35.1; Problem Code Type: ICD-10; Not Available [facility] 3 03:58:30 Fibrocystic disease of breast Completed 199908/09/2020 Problem Code: N60.19; Problem Code Type: ICD-10; Not Available [facility] 3 03:58:30 Impaired fasting glycemia Completed 200602/06/2018 Problem Code: R73.01; Problem Code Type: ICD-10; Not Available [facility] 3 03:58:30 Pain in thoracic spine Completed 201505/24/2016 Problem Code: M54.9; Problem Code Type: ICD-10; Not Available [facility] 3 03:58:31 Lump on face Completed 201505/24/2016 Not Available [facility] 3 03:58:31 Low back pain Completed 201402/03/2015 Problem Code: M54.5; Problem Code Type: ICD-10; Not Available [facility] 3 03:58:31 Pain in finger Completed 201402/03/2015 Problem Code: M79.646; Problem Code Type: ICD-10; Not Available [facility] 3 03:58:31 Personal history of primary malignant neoplasm of breast Completed 201011/15/2022 Problem Code: Z85.3; Problem Code Type: ICD-10; TRINH COATES MD [address], [place], [address] [facility] 4 20:42:54 Hypercalcemia Completed 201411/25/2015 Problem Code: E83.52; Problem Code Type: ICD-10; Not Available [facility] 3 03:58:32 Acute upper respiratory infection Completed 202001/31/2021 Problem Code: J06.9; Problem Code Type: ICD-10; Not Available [facility] 3 03:58:32 Lichen simplex chronicus Completed 201308/09/2020 Problem Code: L28.0; Problem Code Type: ICD-10; Not Available [facility] 3 03:58:32 Overweight Completed 200611/15/2022 08/12/2014 - Comments only - Trinh Coates MD - She is congratulated on her recent weight loss. Not Available [facility] 3 03:58:33 Depressive disorder Completed Not Available [facility] 3 03:58:33 Sleep apnea Completed 200611/15/2022 Not Available [facility] 3 03:58:33 Foot pain Completed 202008/12/2021 Problem Code: M79.673; Problem Code Type: ICD-10; Not Available [facility] 3 03:58:34 Exposure to communicable disease Completed 201902/02/2020 Problem Code: Z20.828; Problem Code Type: ICD-10; Not Available [facility] 3 03:58:34 Vulval and/or perineal noninflammato ry disorders Completed 201804/07/2019 Problem Code: N90.9; Problem Code Type: ICD-10; Not Available [facility] 3 03:58:34 Genital herpes simplex Completed 200911/15/2022 Problem Code: 054.10; Problem Code Type: ICD-9; Not Available [facility] 3 03:58:34 Neck pain Completed 201402/03/2015 Problem Code: M54.2; Problem Code Type: ICD-10; Not Available [facility] 3 03:58:34 Kidney stone Completed Not Available [facility] 3 03:58:35 Blood in urine Completed 201604/07/2019 Problem Code: R31.9; Problem Code Type: ICD-10; Not Available [facility] 3 03:58:35 Hyperglycemia Completed 201711/15/2022 Problem Code: R73.9; Problem Code Type: ICD-10; Not Available [facility] 3 03:58:35 Primary malignant neoplasm of female breast Completed 201711/15/2022 Problem Code: C50.919; Problem Code Type: ICD-10; Not Available [facility] 3 03:58:35 Chronic kidney disease stage 3 Completed 201811/15/2022 02/02/2020 - Comments only - Trinh Coates MD - stable based on recent labs, continue to follow BMP and magnesium q 3 months. Not Available [facility] 3 03:58:36 Hypothyroidis m Completed 201606/12/2018 Problem Code: E03.9; Problem Code Type: ICD-10; Not Available [facility] 3 03:58:36 Gastritis Completed 201302/03/2015 Not Available [facility] 3 03:58:36 Hypokalemia Completed 201702/02/2020 Problem Code: E87.6; Problem Code Type: ICD-10; Not Available [facility] 3 03:58:37 Ingrowing nail Completed 201910/03/2019 Problem Code: L60.0; Problem Code Type: ICD-10; Not Available [facility] 3 03:58:38 Fibrocystic disease of breast Completed Problem Code: 610.1; Problem Code Type: ICD-9; Not Available [facility] 3 03:58:38 Derangement of left knee Completed 202001/31/2021 Problem Code: M23.92; Problem Code Type: ICD-10; Not Available [facility] 3 03:58:38 Screening for malignant neoplasm of cervix Completed 201804/07/2019 Problem Code: Z12.4; Problem Code Type: ICD-10; Not Available [facility] 3 03:58:39 Syncope and collapse Completed 201801/13/2019 Problem Code: R55; Problem Code Type: ICD-10; Not Available [facility] 3 03:58:39 Hypertensive disorder Completed 200611/15/2022 02/03/2015 - Comments only - Trinh Coates MD - As noted above, we'll take the hydrochloroth iazide out of her Diovan combination medication. If she has intermittent fluid retention, such as with travel, she can use 10 mg of furosemide when necessary. We'll need to monitor her blood pressure carefully with this change in her medication Not Available [facility] 3 03:58:39 Pain of right shoulder joint Completed 201901/31/2021 Problem Code: M25.511; Problem Code Type: ICD-10; Not Available [facility] 3 03:58:39 Fatigue Completed 201405/24/2016 Problem Code: R53.83; Problem Code Type: ICD-10; Not Available [facility] 3 03:58:40 Osteopenia Active 10/2021 Femoral neck T score -1.[address], [place], [address] , [facility] 4 20:36:41 Intracranial aneurysm Active 2022 s/p stenting 07/2021 [facility] neurosurgery MD [address], [place], [address] , [facility] 4 20:48:16 Dyspnea Active 202211/03/2022 - Comments only - Trinh Coates MD - Has had chemotherapy for breast cancer. Other risk factors for CHF include HTN, obesity, sleep apnea, prediabetes. Last ECHO was 5 years ago, will repeat along with BNP. Denies any chest pain, if progressive or any chest pain would proceed with stress testing. Problem Code: R06.09; Problem Code Type: ICD-10; Not Available [facility] 4 05:36:37 Dysuria Completed 202212/13/2022 Problem Code: R30.0; Problem Code Type: ICD-10; Not Available [facility] 4 05:36:37 Acute cystitis Completed 202212/19/2022 Problem Code: N30.01; Problem Code Type: ICD-10; Not Available [facility] 4 05:36:38 Nervous system and sense organ diseases Active 202211/03/2022 - Comments only - Trinh Coates MD - relieved to have had workup and treatment and that she will have routine follow up. 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 MD [address], [place], [address] , [facility] 4 20:00:37 Problem Notes None recorded. Procedures Surgical History Date Name Laterality Status Provider Name and Address Organization Details Recorded Time 04/20/19 24 reconstruction of anterior cruciate ligament of knee joint completed HAFSA HIGHTOWER, [facility] 04/23/2023 09:11:45 04/20/19 18 Bilateral Mastectomy completed MD [address], [place], [address], [facility] 03/01/2023 20:55:27 Imaging Results None recorded. Procedure Notes None recorded. Medical Equipment None Reported. Allergies Allergen ID Allergen Name Allergen Category Reaction Reaction Severity Criticality Documentation Date Start Date Code Code System Note Provider Name and Address Organization Details Recorded Time 36861 Medicinal product containin g penicilli n and acting as antibacte rial agent (product) medicatio n other mild Not available 12/29/20222007 43366 05 SNOMED thrus h Aller gyCod e: '8340 61'; Aller gyNam e: 'PENI CILLI N'; Aller gyCon ceptT ype: 'RX Norm' ; Aller gyRea ction : 'thru sh'; Not Available [facility] 3 16:26:27 Medications Name Sig Start Date Stop Date Status Note LastModified by Organization Details LastModified Time Prescript ion - Prior Authoriza tion Request active Not Available Not Available Not Available fluoxetin e 40 mg capsule TAKE ONE CAPSULE BY MOUTH EVERY DAY active Not Available Not Available No t Available Miralax 17 gram/dose oral powder pwd .QD 1 TBS PRN 02/03 completed Not Available Not Available Not Available methocarb germain 500 mg tablet TAKE TWO TABLETS BY MOUTH THREE TIMES A DAY NEEDED FOR SPASMS 04/19 /2024 completed Not Available Not Available Not Available anastrozo le 1 mg tablet Take 1 by mouth once a day 10/11 completed Not Available Not Available Not Available Colace 100 mg capsule 1 CAP twice daily 02/03 completed Not Available Not Available Not Available acetamino phen 325 mg tablet 2 tabs by mouth q 4 hrs as needed for mild pain. Do not exceed 3 g/day 2017 active [facility] Not Available Not Available Not Avai lable prednison e 10 mg tablet 07/22 completed Not Available Not Available Not Available doxycycli ne hyclate 100 mg capsule TAKE TWO CAPSULES BY MOUTH A SINGLE DOSE 03/01 completed Not Available Not Available Not Available atorvasta tin 20 mg tablet Take 1 tablet once a day 08/09 completed Not Available Not Available Not Available Rocaltrol 0.25 mcg capsule 1 capsule by mouth daily 01/25 completed Not Available Not Available Not Available clindamyc in HCl 300 mg capsule Take 1 cap by mouth every 6 hours 02/04 completed Not Available Not Available Not Available triamcino lone acetonide 0.5 % topical cream three times a day 08/12 completed [facility] Not Available Not Available Not Available fosfomyci n trometham ine 3 gram oral packet DRINK ONE PACKET DISSOLVE D IN WATER FOR A SINGLE DOSE 03/01 completed Not Available Not Available Not Available fluconazo le 150 mg tablet TAKE 1 TABLET BY MOUTH EVERY 3 DAYS 03/01 completed Not Available Not Available Not Available benzonata te 200 mg capsule Take 1 capsule by mouth three times a day as needed for cough 01/31 completed Not Available Not Available Not Available Decadron 4 mg tablet take 1 tab PO BID with meals 02/06 completed [facility] Not Available Not Available Not Available Keflex 500 mg capsule Take 1 tab by mouth four times daily ON HOLD UNTIL INSTRUCT S 12/18 completed [facility] Not Available Not Available Not Available diltiazem CD 240 mg capsule,e xtended release 24 hr TAKE 1 CAPSULE BY MOUTH EVERY DAY 2023 active Not Available Not Available Not Avai lable Levaquin 750 mg tablet 1 tab daily 02/03 completed Not Available Not Available Not Available Flonase 50 mcg/DOSE nasal inhaler 2 SPRAY daily 01/03 completed Not Available Not Available Not Available Medrol (Steve) 4 mg tablets in a dose pack 1 TAB DIRECTED 06/12 completed Not Available Not Available Not Available prednison e 20 mg tablet TAKE TWO TABLETS BY MOUTH EVERY DAY 06/07 completed Not Available Not Available Not Available fluoroura cil 5 % topical cream APPLY A THIN LAYER TO AFFECTED AREA(S) ON RIGHT UPPER LIP TWO TIMES A DAY (IN THE MORNING AND AT NIGHT) TOLERATE D FOR 2 WEEKS 03/01 completed Not Available Not Available Not Available Prilosec 20 mg capsule,d elayed release take 1 tablet daily 01/25 completed Not Available Not Available Not Available simvastat in 10 mg tablet Take 1 tab by mouth daily at bedtime 05/24 completed Not Available Not Available Not Available Pyridium 100 mg tablet 1 -2 tabs tid prn 08/26 completed Not Available Not Available Not Available clobetaso l 0.05 % topical cream Apply as directed 08/12 completed Not Available Not Available Not Available naproxen 250 mg tablet TAKE ONE TO TWO TABLETS BY MOUTH TWICE A DAY NEEDED FOR MODERATE PAIN AND SWELLING 06/07 completed Not Available Not Available Not Available phentermi ne 15 mg capsule TAKE ONE CAPSULE BY MOUTH EVERY DAY 06/07 completed Not Available Not Available Not Available Zithromax 250 mg tablet 05/15 completed Not Available Not Available Not Available Wellbutri n SR 150 mg tablet, 12 hr sustained -release 1 TAB BID 07/22 completed Not Available Not Available Not Available Haorldo Low Dose Aspirin 81 mg tablet,de layed release Take 1 tablet by mouth once a day active Not Available Not Available No t Available diltiazem ER 240 mg capsule,2 4 hr,extend ed release TAKE ONE CAPSULE BY MOUTH EVERY DAY 03/02 completed Not Available Not Available Not Available topiramat e 25 mg tablet TAKE ONE TABLET BY MOUTH TWICE A DAY 04/02 completed Not Available Not Available Not Available metronida zole 500 mg tablet TAKE ONE TABLET BY MOUTH TWICE A DAY FOR 7 DAYS 03/01 completed Not Available Not Available Not Available clopidogr el 75 mg tablet Take 1 tablet by mouth once a day until january 19 completed Not Available Not Available Not Available valacyclo vir 500 mg tablet 1 by mouth twice a day as needed for 3 days active Not Available Not Available No t Available sulfameth oxazole 800 mg-trimet hoprim 160 mg tablet TAKE ONE TABLET BY MOUTH TWICE A DAY 03/01 completed Not Available Not Available Not Available omeprazol e 40 mg capsule,d elayed release Take 1 tab by mouth daily. 06/12 completed [facility] Not Available Not Available Not Available Wellbutri n SR 100 mg tablet, 12 hr sustained -release 1 TAB BID 08/12 completed Not Available Not Available Not Available spironola ctone 25 mg tablet TAKE ONE TABLET BY MOUTH EVERY DAY active Not Available Not Available No t Available [facility] Levothyro xine Sodium 50 mcg tablet 1 TAB DAILY 07/11 completed Not Available Not Available Not Available lorazepam 0.5 mg tablet take 1 tablet PO Q6H PRN anxiety 02/06 completed [facility] Not Available Not Available Not Available exemestan e 25 mg tablet TAKE ONE TABLET BY MOUTH EVERY DAY active Not Available Not Available No t Available Lamisil 250 mg tablet 1 po daily for one week, then once weekly for 6-12 months 11/12 completed Not Available Not Available Not Available dexametha sone 1 mg tablet 1tab daily 12/13 completed Not Available Not Available Not Available meclizine 25 mg tablet 2 tabs Take as needed. 11/24 completed Not Available Not Available Not Available amlodipin e 10 mg tablet Take 1 tab by mouth daily 12/12 completed Not Available Not Available Not Available paroxetin e 20 mg tablet 2 qd 07/22 completed Not Available Not Available Not Available simvastat in 20 mg tablet 1 TAB QHS 05/18 completed Not Available Not Available Not Available erythromy zack 5 mg/gram (0.5 %) eye ointment APPLY A 1 CM RIBBION INTO THE LOWER CONJUNCT IVAL SAC(S) IN THE AFFECTED AREA(S) BY OPTHALMI C ROUTE 4 TIMES A DAY FOR 7 DAYS 09/06 completed Not Available Not Available Not Available ferrous sulfate 325 mg (65 mg iron) tablet 1 TAB daily 07/11 completed Not Available Not Available Not Available Hyzaar 100 mg-25 mg tablet 1 TAB QD 02/24 completed Not Available Not Available Not Available Cipro 500 mg tablet Take 1 tablet by mouth twice a day 02/16 completed Not Available Not Available Not Available Norvasc 5 mg tablet 1 TAB QD 11/11 completed Not Available Not Available Not Available lidocaine 5 % topical patch APPLY 2 PATCHES TO SKIN ON MOST PAINFUL AREA FOR UP TO 12 HOURS 06/07 completed Not Available Not Available Not Available promethaz ine 25 mg tablet 1 tablet PO Q4H PRN nausea 12/18 completed [facility] Not Available Not Available Not Available ferrous gluconate 240 mg (27 mg iron) tablet 1 cap daily 2013 active Not Available Not Available Not Avai lable valsartan 320 mg tablet TAKE ONE TABLET BY MOUTH EVERY DAY 06/07 completed fatigue Not Available Not Available Not Available Diovan HCT 160 mg-12.5 mg tablet Take 1 tab by mouth daily 10/09 completed Not Available Not Available Not Available oxycodone 5 mg capsule 1 capsule PO Q4H PRN severe pain 10/11 completed [facility] Not Available Not Available Not Available ibuprofen 400 mg tablet Take 1 tab q 6 hrs daily as needed 2015 active Not Available Not Available Not Avai lable metoprolo l tartrate 50 mg tablet 1 TAB BID 10/14 completed Not Available Not Available Not Available K+ Potassium 20 mEq oral packet 1tab daily 09/27 completed Not Available Not Available Not Available Magnesium -Oxide 400 mg tablet Take 1 tab by mouth twice daily 11/12 completed [facility] Not Available Not Available Not Available gabapenti n 300 mg capsule TAKE ONE CAPSULE BY MOUTH EVERY DAY IN THE MORNING AND 2 CAPSULE IN THE EVENING active Not Available Not Available No t Available Adderall XR 10 mg capsule,e xtended release Take 1 cap by mouth daily 08/23 completed Not Available Not Available Not Available hydroxyzi ne HCl 25 mg tablet 1 TAB three times daily 07/11 completed Not Available Not Available Not Available hydrochlo rothiazid e 25 mg tablet Take 1 tab by mouth daily until replacem ent medicati on arrives 10/09 completed Not Available Not Available Not Available furosemid e 20 mg tablet 1/2 tab daily as needed for fluid retentio n 11/12 completed Not Available Not Available Not Available Synthroid 112 mcg tablet Take 1 tab by mouth daily 11/12 completed Not Available Not Available Not Available norethind cady acetate 5 mg tablet take one tab daily 11/12 completed Not Available Not Available Not Available gabapenti n 100 mg capsule Take 1 cap by mouth 2-3 times daily 07/03 completed Not Available Not Available Not Available clobetaso l 0.05 % topical ointment APPLY TO VULVA SCANT AMOUNT TWO TIMES A DAY FOR 2 WEEKS AND THEN NIGHTLY active Not Available Not Available No t Available Diprolene (augmente d) 0.05 % topical ointment ointment TWICE DAILY 01/02 completed Not Available Not Available Not Available albuterol sulfate HFA 90 mcg/actua tion aerosol inhaler Inhale 2 puff using inhaler every four hours as needed 08/12 completed Not Available Not Available Not Available Naprosyn 500 mg tablet 1 TAB twice daily 07/11 completed Not Available Not Available Not Available ketoconaz ole 2 % topical cream Apply twice a day 08/09 completed Not Available Not Available Not Available Prozac 10 mg tablet 1 TAB QAM 08/12 completed Not Available Not Available Not Available Diltiazem CD 240 mg capsule,e xtended release 1TAB daily 01/29 completed Not Available Not Available Not Available cefdinir 300 mg capsule TAKE ONE CAPSULE BY MOUTH EVERY 12 HOURS FOR 7 DAYS 09/06 completed Not Available Not Available Not Available losartan 100 mg tablet TAKE ONE TABLET BY MOUTH EVERY DAY active Not Available Not Available No t Available fluoxetin e 20 mg capsule Take 1 tab by mouth daily along with 40 mg for total of 60 mg daily 07/03 completed Not Available Not Available Not Available Diovan 160 mg tablet 1 po daily 05/24 completed Not Available Not Available Not Available doxycycli ne hyclate 100 mg tablet Take 1 tablet by mouth twice a day 01/31 completed Not Available Not Available Not Available tamoxifen 20 mg tablet 1 po daily 01/08 completed Not Available Not Available Not Available diazepam 5 mg tablet TAKE 1 TABLET BY MOUTH 3 TIMES DAILY NEEDED FOR MUSCLE SPASM 06/07 completed Not Available Not Available Not Available oxycodone 5 mg tablet TAKE ONE TO TWO TABLETS BY MOUTH EVERY 4 TO 6 HOURS NEEDED FOR SEVERE PAIN 06/07 completed Not Available Not Available Not Available Lo/Ovral- 28 0.3 mg-30 mcg tablet 1 TAB daily 07/11 completed Not Available Not Available Not Available rosuvasta tin 10 mg tablet TAKE ONE TABLET BY MOUTH EVERY DAY IN THE EVENING active Not Available Not Available No t Available Crestor 20 mg tablet Take 1 tab by mouth daily at bedtime 06/18 completed Not Available Not Available Not Available Prilosec OTC 20 mg tablet,de layed release 1 CAP daily 2014 active Not Available Not Available Not Avai lable topiramat e 50 mg tablet TAKE ONE TABLET BY MOUTH TWICE A DAY 04/02 completed Not Available Not Available Not Available Nexium 40 mg intraveno us solution 1 tab daily 03/05 completed Not Available Not Available Not Available clobetaso l 04/22 completed Not Available Not Available Not Available Cheratuss in AC t tsp q6h 02/03 completed Not Available Not Available Not Available Adderall XR (10mg) 1 TAB DAILY 12/17 completed Not Available Not Available Not Available cholecalc iferol (vitamin D3) 25 mcg (1,000 unit) tablet Take 1 tablet by mouth once a day 2017 active [facility] Not Available Not Available Not Avai lable NAC 600 mg capsule Take 1-2 capsule by mouth twice a day OTC-TWIC E A DAY or as needed. 11/03 completed Not Available Not Available Not Available magnesium oxide 500 mg capsule Take 1 tab by mouth daily 03/07 completed Not Available Not Available Not Available Stelara 90 mg/mL subcutane ous syringe 45mg/ML sq 2018 active [facility] Not Available Not Available Not Avai lable Stelara 45 mg/0.5 mL subcutane ous syringe 45 mg active Not Available Not Available Not Available Victoza 3-Steve 0.6 mg/0.1 mL (18 mg/3 mL) subcutane ous pen injector take 0.6 mg daily for 1 month, then increase to 1.2 mg daily 2023 active Not Available Not Available Not Avai lable potassium chloride ER 20 mEq tablet,ex tended release Take 1 by mouth daily 01/28 completed [facility] Not Available Not Available Not Available TechLITE Pen Needle 32 gauge x 32 active Not Available Not Available Not Available Intrarosa 6.[address] VAGINALL Y DAILY 06/07 completed Not Available Not Available Not Available Wegovy 1.7 mg/0.75 mL subcutane ous pen injector Inject 1.7 mg every week by subcutan eous route. active Not Available Not Available No t Available Wegovy 1 mg/0.5 mL subcutane ous pen injector INJECT 1MG UDNER THE SKIN ONCE WEEKLY active Not Available Not Available No t Available Wegovy 0.25 mg/0.5 mL subcutane ous pen injector Inject 0.25 mg every week by subcutan eous route for 28 days. 2023 active Not Available Not Available Not Avai lable Wegovy 0.5 mg/0.5 mL subcutane ous pen injector Inject 0.5 mg every week by subcutan eous route. active Not Available Not Available No t Available Vitals Date Recorded Body height Body mass index (BMI) Body weight Body temperature Oxygen saturation Oxygen saturation in Arterial blood by Pulse oximetry Heart rate Respiratory rate Systolic blood pressure Diastolic blood pressure Provider Name and Address Organization Details Last Updated DateTime 4 155.7 cm 33.9 kg/m2 48047.2 2 g 97.5 [degF] 96 % 96 % 82 /min 16 /min 118 mm[Hg] 80 mm[Hg] ARELI MEDEIROS LPN [facility] 4 10:03:35 Social History Question Answer Notes LastModified by Organizat ion Details LastModified Time Tobacco Smoking Status Former Smoker ARELI MEDEIROS LPN [facility], [facility] 03/02/2023 15:03:25 Would You Say That, In General, Your Health Is Good Information not available 03/02/2023 How Often Does Anyone, Including Family, Physically Hurt You? Never Information not available 03/02/2023 How Often Does Anyone, Including Family, Insult Or Talk Down To You? Never Information no t available 03/02/2023 How Often Does Anyone, Including Family, Threaten You With Harm? Never Information not available 03/02/2023 How Often Does Anyone, Including Family, Scream Or Curse At You? Never Information not available 03/02/2023 Within The Past 12 Months, You Worried That Your Food Would Run Out Before You Got Money To Buy More. Never True Information n ot available 03/02/2023 Within The Past 12 Months, The Food You Bought Just Didn't Last And You Didn't Have Money To Get More. Never True Information not available 03/02/2023 How Hard Is It For You To Pay For The Very Basics Like Food, Housing, Medical Care, And Heating? Would You Say It Is: Not Hard At All Information not available 03/02/2023 In The Past 12 Months, Has Lack Of Reliable Transportation Kept You From Medical Appointments, Meetings, Work Or From Getting Things Needed For Daily Living? No Information not available 03/02/2023 What Is Your Housing Situation Today? I Have Housing. Information not available 03/02/2023 How Often In The Past Year Have You Used Marijuana (including Smoking, Vaping, Dabbing, Or Edibles)? Never Information not available 03/02/2023 How Often In The Past Year Have You Used Prescription Medications That Were Not Prescribed To You? Never Information not available 03/02/2023 How Often In The Past Year Have You Taken Your Own Prescription Medication More Than The Way It Was Prescribed Or For Different Reasons Than Its Intended Purpose? Never Information not available 03/02/2023 How Often In The Past Year Have You Used Other Drugs (for Example, Heroin, Cocaine, Meth, Salvia, Inhalants)? Never Information not available 03/02/2023 Have You Ever Used IV Drugs? No Information not available 03/02/2023 Date Of Most Recent SBINS 03/02/2023 Information not available 03/02/2023 What Was The Date Of Your Most Recent Tobacco Screening? 03/02/2023 Information n ot available 03/02/2023 Has Tobacco Cessation Counseling Been Provided? No Information not available 03/02/2023 Do You Or Have You Ever Used Any Other Forms Of Tobacco Or Nicotine? No Information not available 03/02/2023 Sex: Female Functional Status None recorded. Mental Status None recorded. Family History Relationship Description Onset Age of this Age Resolved Age Notes Unspecified Relation Family history of breast cancer Aunt-double masectomy Relative: 'Aunt'; Unspecified Relation Family history of breast cancer Aunt-double masectomy Relative: 'Cousin (female)'; Unspecified Relation Family history of cancer of colon Relative: 'Uncle'; Unspecified Relation Family history of malignant neoplasm Relative: 'Cousin (female)'; Maternal Grandfather Family history of cancer of colon Father Family history of malignant neoplasm Father Family history of stroke Maternal Grandmother Family history of malignant neoplasm of ovary Notes:*Problem: Mother: Lia amaya hyperlipidemia, HTN, breast cancer. 2020 new cancer Father: of brain aneurism, age 73, DM, HTN. Sisters: 1 Brothers: none Children: two Family History of: Hypertension: yes Hyperlipidemia: yes Coronary heart disease: no Diabetes mellitus: yes Breast cancer: maternal aunt, and 1st cousin Colorectal cancer: yes maternal GF, in late 70s Alcoholism: no Mental illness: no Other: Cousin w/ stomach cancer passed 3 yrs ago, her brother was dx w/ stomach cancer a yr ago and is not doing well. Medical History No medical history recorded. Gynecological HistoryNo gynecological history recorded. Obstetrics History GPAL:G 0 P 0 0 0 0 Immunizations Vaccine Type Date Status Provider Name and Address Organization Details Recorded Time Tdap 07/01/2007 completed Not Available [facility] 05:28:47 Tdap 08/11/2020 completed Not Available [facility] 05:28:47 Td(adult) unspecified formulation 03/23/1996 completed Not Available [facility] 12/29/2022 05:28:48 zoster recombinant 08/23/2021 completed Not Available [facility] 12/29/2022 05:28:49 zoster recombinant 10/31/2021 completed Not Available [facility] 12/29/2022 05:28:49 COVID-19, mRNA, LNP-S, PF, 100 mcg/0.5mL dose or 50 mcg/0.25mL dose 05/06/2020 completed Not Available [facility] 12/30/19 05:28:49 COVID-19, mRNA, LNP-S, PF, 100 mcg/0.5mL dose or 50 mcg/0.25mL dose 06/04/2020 completed Not Available [facility] 12/30/19 05:28:49 COVID-19, mRNA, LNP-S, PF, 100 mcg/0.5mL dose or 50 mcg/0.25mL dose 08/29/2021 completed Not Available [facility] 12/30/19 05:28:49 COVID-19, mRNA, LNP-S, PF, 100 mcg/0.5mL dose or 50 mcg/0.25mL dose 01/31/2021 completed Not Available [facility] 12/30/19 05:28:49 Past Encounters Encounter ID Performer Location Encounter Start Date Encounter Closed Date Diagnosis/Indication Diagnosis SNOMED-CT Code [id number] TRINH COATES MD [address] [place] [address] 09/07/2023 09:53:16 09/07/2023 10:31:13 Chronic kidney disease stage 3B [id number] Obesity [id number] Health Concerns Section Related Observation LastModified by Organization Detai ls LastModified Time None Recorded Concern Status LastModified by Organization Details LastModified Time None Recorded Payers Encounter Date Sequence Insurance Name Policy Number Policy Arroyo Covered Member ID Arroyo Member ID Guarantor Name 09/07/2023 1 [facility] [id number] Wendy Sandoval [id number] Wendy Sandoval Notes Date Note Type Note Provider Name and Address Organization Details Recorded Time 09/07/2023 text/html HPI Notes: Here for follow up of multiple problems as noted below: Victoza 1.2 mg daily, tolerating well. It is helping to curb appetite, now she has to get an exercise regimen. Weight is down just 1 pound. Only had nausea once or twice. Due for q3-4 month labs (BMP, magnesium) Having hemorrhoid surgery soon. They have been bleeding regularly. Saw neurosurgery, doing PT, more careful with lifting, back has been okay. Saw scrap iron cutter, had mole removed, benign, psoriasis is stable with the stelara. TRINH COATES MD [address], [place], [address], [facility]. 09/07/2023 11:58:01 OBGyn Episode No OBEpisode recorded.
--- OUTSIDE RECORDS SUMMARY | 2023-09-25 11:40 | XMS_ITS | Encounter Summary ---
Author Organization [facility] Address [facility] [place] [address] Care Team Providers Care Percussion Instructor Name Role Phone Trinh Coates MD Primary Care Provider [phone] Encounter Details Date Type Department Care Team [...] 01/22/2024 10:30 AM EST Appointment Mammography/[place] [address] Ladi Mendosa MD [facility] [place] [address] 01/30/2024 11:30 AM EST Office Visit Dermatology at [facility] [address] [place] [address] Nilda Luis MD [facility] [place] [address] 02/14/2024 7:30 AM EST [place]ment [place] [address] Joanna Watts MD [facility] [place] [address] documented as of this encounter Visit Diagnoses Not on filedocumented in this encounter Care Teams Percussion Instructor Relationship Specialty Start Date End Date Trinh Coates MD [facility] [place] [address] [address] PCP - General 01/11/10 documented as of this encounter
--- OUTSIDE RECORDS SUMMARY | 2023-09-25 11:40 | XMS_ITS | Encounter Summary ---
Author Organization [facility] Address [facility] [place] [address] Care Team Providers Care General Cleaner Name Role Phone Trinh Coates MD Primary Care Provider [phone] Encounter Details Date Type Department Care Team (Late st Contact Info) Description 06/13/2023 2:00 PM EDT Office [place] [address] Joanna Watts MD [facility] [place] [address] Sciatica of right side Social History Tobacco [...] The prior night she bent over to diamond picker a toy for her dog and felt something shift or pop in her back, but it wasn't painful. She has had prior L sided sciatic pain, but no prior back surgeries, injections, or other intervention. Got progressively worse, then went to the ED at [facility] via EMS. No incontinence or retention, but [...] Muscle Soft Tissue 05/24/2023 Khris Adorno MD [facility] RAD CT SCAN HAND SURGERY Right IR ARTERIOGRAM CEREBRAL 05/19/2022 IR Arteriogram Cerebral 05/19/2022 Joanna Watts MD [facility] INTERVENTIONL RAD IR ARTERIOGRAM CEREBRAL 01/31/2023 IR Arteriogram Cerebral 01/31/2023 Joanna Watts MD [facility] INTERVENTIONL RAD IR DRAIN CHECK/CHANGE/REMOVE 11/20/2017 IR Drain Check/Change/Remove 11/20/2017 Marcos Dey MD [facility] INTERVENTIONL RAD IR EMBOLIZATION CEREBRAL 07/24/2022 IR Embolization Cerebral 07/24/2022 Joanna Watts MD [facility] INTERVENTIONL RAD IR MEDIPORT REMOVAL 01/25/2018 IR Mediport Removal 01/25/2018 Scooby Muñoz, OPTICAL EFFECTS LAYOUT PERSON [facility] INTERVENTIONL RAD PRG EMG, LARYNX N/A 11/02/2015 FACIAL NERVE MONITORING, SETUP LARYNGEAL performed by Valentina Lucas MD at [facility] MAIN OR PRO BREAST RECONSTRUCTION IMMT/DLYD W/TISS SURVIVAL SPECIALIST SBSQ EXPANSION Bilateral 04/26/2017 BREAST RECONSTRUCTION, IMMEDIATE OR DELAYED, W/ TISSUE SURVIVAL SPECIALIST, INCLUDING SUBSEQUENT EXPANSION (WRVU 18.5) performed by Andre Gimenez MD at [facility] MAIN OR PRO BREAST RECONSTRUCTION W FREE FLAP Bilateral 04/26/2017 @BREAST RECONSTRUCTION W/ FREE FLAP, SUSAN (WRVU 42.58) performed by Andre Gimenez MD at [facility] LLOYD PRO BREAST RECONSTRUCTION W/LATSMS D/SI FLAP WO PRSTHC IMPL Bilateral 12/12/2017 @BREAST RECONSTRUCTION W/ LAT DORSI FLAP,W/O IMPLANT, SUSAN (WRVU 23.36) performed by Andre Gimenez MD at [facility] MAIN OR PRO DEBRIDEMENT SUBCUTANEOUS TISSUE 20 SQCM/< 06/22/2017 DEBRIDEMENT SKIN AND SUBCU, BREAST (WRVU 1.01) performed by Andre Gimenez MD at [facility] MAIN OR PRO EXPLORE PARATHYROID GLANDS N/A 11/02/2015 PARATHYROIDECTOMY OR EXPLORATION OF PARATHYROID(S) performed by Valentina Lucas MD at [facility] MAIN OR [facility] FULL THICK GRFT TRUNK <20 SQCM Bilateral 04/26/2017 FTSG, FREE, DIR CLOSE DONOR SITE, TRUNK, 20 SQ CM OR LESS (WRVU 9.15) performed by Andre Gimenez MD at [facility] MAIN OR [facility] INCISION OF LYMPH CHANNELS Left 10/18/2018 INCISION & DRAINAGE LYMPHOCELE (WRVU 6.81) performed by Andre Gimenez MD at [facility] OR [facility] IV INJ TO TEST BLOOD FLOW IN FLAP/GRAFT Left 10/18/2018 IV INJECTION, AGENT TO TEST VASC FLOW IN FLAP OR GRAFT, ENT (WRVU 1.95) performed by Andre Gimenez MD at [facility] MAIN OR [facility] MASTECTOMY, SIMPLE, COMPLETE Bilateral 04/26/2017 MASTECTOMY, SIMPLE, COMPLETE-SUSAN (WRVU 15.85) performed by Jolie Menendez MD at [facility] MAIN OR [facility] PARTIAL REMOVAL OF RIB Bilateral 04/26/2017 EXCISION OF RIB, PARTIAL (WRVU 7.26) performed by Andre Gimenez MD at [facility] MAIN OR [facility] PERM OCCLUSION/EMBOLIZATION, PERCUT, PROCEDURE TECH N/A 07/24/2022 @TRANSCATHETER OCCLUSION/EMBOLIZATION FOR TUMOR DESTRUCTION (WRVU 20.12) performed by Joanna Watts MD at [facility] ENRIQUE PRO REMOVE ARMPITS LYMPH NODES COMPLT Left 04/26/2017 LYMPHADENECTOMY, AXILLARY, COMPLETE (WRVU 13.87) performed by Jolie Menendez MD at [facility] MAIN OR [facility] REPLACE TISSUE SURVIVAL SPECIALIST Bilateral 12/12/2017 TISSUE SURVIVAL SPECIALIST REPLACEMENT, WITH PERMANENT PROSTHESIS, SUSAN (WRVU 8.01) performed by Andre Gimenez MD at [facility] MAIN OR PRO REVISION RECONSTRUCTED BREAST Left 06/22/2017 REVISION OF RECONSTRUCTED BREAST (WRVU 10.41) performed by Andre Gimenez MD at [facility] MAIN OR PRO REVISION RECONSTRUCTED BREAST Bilateral 12/12/2017 REVISION OFRECONSTRUCTED BREAST, SUSAN (WRVU 10.41) performed by Andre Gimenez MD at [facility] MAIN OR [facility] THYMECTOMY, TRANSCERVICAL N/A 11/02/2015 THYMECTOMY, TRANSCERVICAL APPROACH performed by Valentina Lucas MD at [facility] MAIN OR SHOULDER SURGERY Left UMBILICAL [...] Extension 5 5 Wrist Dorsiflexion Finger Abduction Well Tester 5 5 Hip Flexion 5 5 Knee [...] attending Section of Neurosurgery Department of Surgery [facility] documented in this encounter Plan of Treatment Upcoming Encounters Date Type Department Care Team (Late st Contact Info) Description 01/22/2024 10:30 AM EST Appointment Mammography/[place] [phone] Ladi Mendosa MD [facility] [address] [place] [address] 01/30/2024 11:30 AM EST Office Visit Dermatology at [address] [address] Nilda Luis MD [facility] [place] [address] 02/14/2024 7:30 AM EST Appointment Radiology at [place] [phone] Joanna Watts MD [facility] [place] [address] documented as of this encounter Visit Diagnoses Diagnosis Sciatica of right side Sciatica documented in this encounter Care Teams General Cleaner Relationship Specialty Start Date End Date Trinh Coates MD [facility] [address] [place] [address] PCP - General 01/11/10 documented as of this encounter
--- OUTSIDE RECORDS SUMMARY | 2023-09-25 11:40 | XMS_ITS | Encounter Summary ---
Author Organization [facility] [place] [address] Care Team Providers Care Boots And Shoes Supervisor Name Role Phone Trinh Coates MD Primary Care Provider [phone] Reason for Referral * Diagnostic Test (Routine) - Closed Specialty Diagnoses / Procedures Referred By Contac t Referred To Contact Radiology Diagnoses Abdominal pain, unspecified abdominal location Procedures CT Guided Aspiration Muscle Soft Tissue Juan Kat PA [facility] [address] [place] [address] [facility] [place] [address] Referral ID Status Reason Start Date Expiration Date V isits Requested Visits Authorized [id number] Closed Specialty Service Requested 05/22/2023 11/20/2024 1 1 Reason for Visit * Diagnostic Test (Routine) - Closed Specialty Diagnoses / Procedures Referred By Contac t Referred To Contact Radiology Diagnoses Abdominal pain, unspecified abdominal location Procedures CT Guided Aspiration Muscle Soft Tissue Juan Kat PA [facility] [place] [address] [facility] [place] [address] Referral ID Status Reason Start Date Expiration Date V isits Requested Visits Authorized [id number] Closed Specialty Service Requested 05/22/2023 11/20/2024 1 1 Encounter Details Date Type Department Care Team (Latest Contact Info) Description 05/24/2023 2:50 PM EDT - 05/24/2023 11:59 PM EDT Hospital Encounter CT Scan at [facility] [place] [address] Andre Crowley MD [facility] [address] [place] [address] Abdominal pain, unspecified abdominal location Discharge Disposition: [...] is during regular office hours, please call [phone]. If it is after regular office hours, or on weekends or holidays, please call [phone] and ask to speak to the [employer] library paraprofessional for Interventional Radiology. You have received medication [...] Sig Dispensed Refills Start Date End Date ibuprofen (Motrin) 400 mg tablet Take 1 [...] by mouth daily. 90 tablet 3 07/23/2018 losartan (COZAAR) 100 mg Tablet take 1 tablet by mouth once daily 0 10/09/2017 cholecalciferol, Vitamin D3, 125 mcg (5,000 unit) Tablet Take by mouth daily. ferrous gluconate 324 mg (37.5 mg iron) TabletIndications:Prote inuria,Essential hypertension,Hypercalce osmin Take 324 mg by mouth daily. fluoxetine (PROZAC) 40 mg capsule Take 40 mg by mouth daily. 10/31/2012 Stelara 45 mg/0.5 mL subcutaneous injectionIndications:Ps oriasis MAINTENANCE: INJECT 1 SYRINGE SUBCUTANEOUSLY EVERY 12 WEEKS. REFRIGERATE. DO NOT FREEZE 0.5 mL 2 01/30/2023 07/17/2023 documented as of this encounter Progress Notes * Arabella Ford, RN - 05/24/2023 4:54 PM EDT [facility] DATABASE Name: Wendy Sandoval Date of : 1965 AGE: 57 y.o. Address: [address] [place] [phone] (home) [phone] (work) Mobile: Telephone Information: Referring Provider: Juan Kat REASON FOR VISIT: Order Questions Answers Where will study be performed? [facility] Radiology [120] Is the patient on anticoagulant [...] in this encounter H&P Notes * Isidoro Cao, - 05/24/2023 3:25 PM EDT Interventional Radiology [...] 01/22/2024 10:30 AM EST Appointment Mammography/[place] [address] Ladi Mendosa MD [facility] DR HEMATOLOGY [place] [address] 01/30/2024 11:30 AM EST Office Visit Dermatology at [facility] [address] [place] [address] Nilda Luis MD [facility] [place] [address] 02/14/2024 7:30 AM EST Appointment Radiology at [facility] [place] [phone] Joanna Watts MD [facility] [place] [address] documented as of this encounter Procedures Procedure [...] EDT) Anaerobic Culture No anaerobic organisms isolated [facility] Fluid 05/24/2023 5:30 PM EDT 05/24/2023 6:18 PM EDT Comment:Left L5/S1 facet flu id Narrative Resulting Agency Comment Spec In Lab Khris Adorno MD MICROBIOLOGY - GENER AL ORDERABLES Performing Organization Address [facility] Co de Phone Number [facility] [place] [address] * Body Fluid Culture, Aerobic (05/24/2023 5:30 PM EDT) Body Fluid Culture No growth [facility] Gram Stain Few Neutrophils seen No microorganisms seen. [facility] Fluid 05/24/2023 5:30 PM EDT 05/24/2023 6:18 PM EDT Comment:Left L5/S1 facet flu id Narrative Resulting Agency Comment Spec In Lab Khris Adorno MD MICROBIOLOGY - GENER AL ORDERABLES Performing Organization Address [facility] [place] [place] [address] * Anaerobic Culture (05/24/2023 5:20 PM EDT) Anaerobic Culture No anaerobic organisms isolated [facility] Fluid 05/24/2023 5:20 PM EDT 05/24/2023 6:17 PM EDT Comment:Enhancing right psoa s lesion on MRI, Abdominal pain, unspecified abdominal location Narrative Resulting Agency Comment Spec In Lab Khris Adorno MD MICROBIOLOGY - GENER AL ORDERABLES Performing Organization Address [facility] Co de Phone Number [facility] [place] [address] * Body Fluid Culture, Aerobic (05/24/2023 5:20 PM EDT) Body Fluid Culture No growth [facility] Gram Stain Few Neutrophils seen No microorganisms seen. [facility] Fluid 05/24/2023 5:20 PM EDT 05/24/2023 6:17 PM EDT Comment:Enhancing right psoa s lesion on MRI, Abdominal pain, unspecified abdominal location Narrative Resulting Agency Comment Spec In Lab Khris Adorno MD MICROBIOLOGY - GENER AL ORDERABLES [facility] [place] [address] documented in this encounter Visit Diagnoses Diagnosis Abdominal pain, unspecified abdominal location documented in this encounter Administered Medications Inactive Administered Medications - up to 3 most recent administrations Medication Order MAR Action Action Date Dose Rate Site fentaNYL (pf) (50 mcg/mL) multi-dose injection 25-50 mcg 25-50 mcg, Intravenous, EVERY 3 MIN PRN, Starting on Sosa 05/24/23 at 1529, Until Sosa 424 at 1811, [...] mg documented in this encounter Care Teams Boots And Shoes Supervisor Relationship Specialty Start Date End Date Trinh Coates MD [address] [place] [address] PCP - General 01/11/10 documented as of this encounter
--- OUTSIDE RECORDS SUMMARY | 2023-09-25 11:40 | XMS_ITS | Encounter Summary ---
Author Organization [facility] [place] [address] Care Team Providers Care Leather Leveler Name Role Phone Trinh Coates MD Primary Care Provider [phone] Encounter Details Date Type Department Care Team (Late st Contact Info) Description 09/17/2023 Telephone [place] [address] Felisa Chavis Social History Tobacco [...] * Telephone Encounter - Felisa Chavis - 09/17/2023 9:14 AM EDT Left message to reschedule DSA in January with Dr. Watts documented in this encounter Plan of Treatment Upcoming Encounters Date Type Department Care Team (Late st Contact Info) Description 01/22/2024 10:30 AM EST Appointment Mammography/[place] [address] Ladi Mendosa MD [facility] DR HEMATOLOGY [place] [phone] 01/30/2024 11:30 AM EST Office Visit Dermatology at [facility] [address] [place] [address] Nilda Luis MD [facility] [place] [address] 02/14/2024 7:30 AM EST Appointment [place] [address] Joanna Watts MD [facility] [address] documented as of this encounter Visit Diagnoses Not on filedocumented in this encounter Care Teams Leather Leveler Relationship Specialty Start Date End Date Trinh Coates MD [facility] [address] [facility] [address] [place] [address] PCP - General 01/11/10 documented as of this encounter
--- OUTSIDE RECORDS SUMMARY | 2023-09-25 11:40 | XMS_ITS | Encounter Summary ---
Author Organization [facility] Address [facility] [place] [address] Care Team Providers Care Risk Management Manager Name Role Phone Trinh Coates MD Primary Care Provider [phone] Encounter Details Date Type Department Care Team [...] 01/22/2024 10:30 AM EST Appointment Mammography/[place] [address] Ladi Mendosa MD [facility] [address] [place] [address] 01/30/2024 11:30 AM EST Office Visit Dermatology at [facility] [address] [place] [phone] Nilda Luis MD [facility] [place] [address] 02/14/2024 7:30 AM EST [place] [address] Joanna Watts MD [facility] [address] documented as of this encounter Visit Diagnoses Not on filedocumented in this encounter Care Teams Risk Management Manager Relationship Specialty Start Date End Date Trinh Coates MD [facility] [address] [address] PCP - General 01/11/10 documented as of this encounter
--- OUTSIDE RECORDS SUMMARY | 2023-09-25 11:40 | XMS_ITS | Clinical Summary ---
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 I told her that if it is [...] Encounters Date Type Department Care Team Description 09/17/2023 [place] [phone] Felisa Chavis 09/07/2023 [place] [phone] Valeria Posadas CPHT 07/30/2023 [place] [address] Felisa Chavis 07/17/2023 11:50 AM EDT Laboratory Appointment Lab at [facility] [address] [place] [address] High risk medication use 07/17/2023 11:00 AM EDT Office Visit Dermatology at [facility] [address] [place] [address] Nilda Luis MD Psoriasis; High risk medication use; Neoplasm of unspecified behavior of bone, soft tissue, and skin; Actinic keratoses; Seborrheic keratoses; Lentigo; History of atypical nevus; Sebaceous hyperplasia; Milia 07/17/2023 Travel from Last 3 Months Immunizations Name Administration Dates Next Due Moderna Covid-19 Monovalent 12Yr+ (Bread Icer 100mc g) 06/04/2020,05/06/2020 Td Adult, Unspecified Formulation [...] 01/22/2024 10:30 AM EST Appointment Mammography/[place] [address] Ladi Mendosa MD [facility] [place]AT[place] [address] 01/30/2024 11:30 AM EST Office Visit Dermatology at [place] [address] [place] [phone] Nilda Luis MD [facility] [place] [address] 02/14/2024 7:30 AM [place] [phone] Joanna Watts MD [facility] [place] [address] Health Maintenance Due Date Last Done Comments CT Colonography 1963 Colonoscopy 1963 Colorectal Cancer Screening 1963 FIT DNA 1963 FIT 1963 Sigmoidoscopy (10 year) with FIT yearly 1963 Sigmoidoscopy 1963 HIV screen 06/26/1981 Breast Cancer Share Decision Needed 2003 Advance Directive 06/26/2018 Breast Cancer screening 03/12/2019 03/12/19 18, 01/07/2016, 12/04/2014, Additional history exists Covid-19 Vaccine (5 - 2023-2 4 season) 2022 08/29/2021, 01/31/2021, 06/04/2020, Additional [...] history exists Medical Devices Implanted Type Area Migration Specialist Device Identifier Shelf Expiration Date Model / Serial / Lot Breast Clip-03/20/2017 Implanted:Qty: 1 on 03/20/2017 by Kim Rodriguez MD Breast Clip Left: Breast [id number] / / [id number] Description:SANGEETHA Breast Clip-03/29/2017 Implanted:03/29 by Kim Rodriguez MD (Quantity not on file) Breast Clip Left: Axilla ULTRACOR TWIRL / / [id number] Description:TWIRL Expand,Tiss,Art oura,600cc ([id number]) (Autoreq) - [id number] Implanted:Qty: 1 on 04/26/2017 by Andre Gimenez MD at [facility] IMPLANTS Right: Breast DO NOT USE [place] [employer] - [id number] 12/17/2020 [id number] / [id number] Expand,Tiss,Art oura,600cc ([id number]) (Autoreq) - [id number] Implanted:Qty: 1 on 04/26/2017 by Andre Gimenez MD at [facility] IMPLANTS Left: Breast DO NOT USE [place] [employer] - [id number] 04/01/2020 [id number] / [id number] / [id number] Mamma,Gel,Xtra, Mod+,Rnd,405cc ([id number]) (Autoreq) - [id number] Implanted:Qty: 1 on 12/12/2017 by Andre Gimenez MD at [facility]S [facility] [employer] 12/14/2021 [id number] / [id number] Mamma,Gel,Xtra, Mod+,Rnd,405cc ([id number]) (Autoreq) - [id number] Implanted:Qty: 1 on 12/12/2017 by Andre Gimenez MD at [facility] IMPL[facility]S [facility] [employer] 12/13/2021 [id number] / [id number] Coil Embolization Stent Pipeline 5.0x25mm N Coat ([id number] Implanted:Qty: 1 on 07/24/2022 by Joanna Watts MD IMPLANTS Right: Arterial [employer] 06/06/2025 [id number] Description:AXEL Explanted Type Area Migration Specialist Device Identifier Shelf Expiration Date Model / Serial / Lot Nuclear Plant Instrument Technician,Gold, 3.0mm ([id number]) - [id number] Implanted:Qty : 1 Explanted:Qty : 1 on 04/26/2017 by Andre Gimenez MD at [facility] IMPLANTS Left: Breast [employer] - - [id number] 01/08/2022 [id number] / / [id number] Nuclear Plant Instrument Technician,Gold, 3.0mm ([id number]) - [id number] Implanted:Qty : 1 Explanted:Qty : 1 on 04/26/2017 by Andre Gimenez MD at [facility] IMPLANTS Left: Breast [employer] - - [id number] 12/14/2021 [id number] / / [id number] Nuclear Plant Instrument Technician,Gold, 3.0mm ([id number]) - [id number] Implanted:Qty : 1 Explanted:Qty : 1 on 04/26/2017 by Andre Gimenez MD at [facility] IMPLANTS Right: Breast [employer] - - [id number] 01/08/2022 [id number] / / [id number] Port,Ct,Low Profile,Vacce ss ([id number])-06/19 Implanted:Qty : 1 on 07/03/2017 by Scooby Muñoz APRN Explanted:Qty : 1 on 01/25/2018 by Scooby Muñoz APRN IMPLANTS Right: Vein [employer] - [id number] / / [id number] Description:6fr low profile power vaccess Procedures Procedure Name Priority Date/Time Associated Diagnosis Comments LAB SCAN 09/07/2023 12:00 AM EDT LAB SCAN 09/07/2023 12:00 AM EDT LAB SCAN 09/07/2023 12:00 AM EDT SPECIMEN TO PATHOLOGY Routine 07/17/2023 12:46 PM EDT Neoplasm of unspecified behavior of bone, soft tissue, and skin DIFFERENTIAL, AUTOMATED Routine 07/17/2023 12:07 PM EDT High risk medication use HEMOGRAM Routine 07/17/2023 12:07 PM EDT High risk medication use COMPREHENSIVE METABOLIC PANEL Routine 07/17/2023 12:07 PM EDT High risk medication use CBC (WITH DIFF) Routine 07/17/2023 12:07 PM EDT High risk medication use QUANTIFERON-TB GOLD Routine 07/17/2023 1 2:07 PM EDT High risk medication use SURGICAL PATHOLOGY REPORT Routine 07/17/2023 11:35 AM EDT HPV Routine 11/10/2022 11:30 AM EDT MEDICAL DOCTOR CYTOLOGY FINAL REPORT Routine 11/10/2022 11:30 AM EDT HEPATITIS C ANTIBODY Routine 07/24/2018 4:14 PM EDT High risk medications (not anticoagulants) long-term use MAMMO SCREENING CAD AND BOB BILATERAL Routine 03/12/2017 1:38 PM EST Encounter for screening mammogram for breast cancer from Last 3 Months or Most Recently Relevant to Health Maintenance Results * Scan Doc: Lab (09/07/2023 12:00 AM EDT) Only the most recent of3 resultswithin the time period is included. Narrative 09/07/2023 12:00 AM EDT Ordered by an unspecified provider. Scanning Provider MEDIA MGR SCAN EXT O RDR/RSLT * Specimen to Pathology (07/17/2023 12:46 PM EDT) AP Specimen 07/17/2023 12:4 6 PM EDT 07/17/2023 12:46 PM EDT Narrative [facility] - 07/17/2023 12:46 PM EDT Specimen requisition ordered. ??Separate Pathology report to follow Nilda Luis MD PATHOLOGY/CYTOLOGY ORDERABLES [facility] [place] [address] * QuantiFERON-TB Gold (07/17/2023 12:07 PM EDT) Quantiferon Nil 0.029 IU/mL [facility] QFT TB Ag1-Nil -0.003 IU/mL [facility] QFT TB Ag2-Nil 0.006 IU/mL [facility] Quantiferon Mitogen-Nil 9.971 IU/mL [facility] Quantiferon-TB Gold Negative Negative [facility] Quantiferon Tb Interp M. tuberculosis [...] affect immune function, or other immunological factors. [facility] Blood 07/17/2023 12:0 7 PM EDT 07/18/2023 11:35 AM EDT Narrative Resulting Agency Comment Spec In Lab Nilda Luis MD CHEMISTRY ORDERABLE S [facility] [place] [address] * (ABNORMAL) Hemogram (07/17/2023 12:07 PM EDT) White Blood Cell 10.0(H) 4.0 - 9.5 x10(3)/mc L [facility] Red Blood Cell 3.91(L) 4.00 - 5.21 x10(6)/mc L [facility] Hemoglobin 12.3 11.7 - 15.5 g/dL [facility] Hematocrit 39.0 35.7 - 45.8 % [facility] Mean Cell Volume 99.7(H) 82.6 - 94.4 fL [facility] Mean Cell Hemoglobin 31.5 27.1 - 32.0 pg [facility] Mean Cell Hemoglobin Concentration 31.5(L) 31.7 - 35.0 g/dL [facility] Platelet 344 145 - 357 x10(3)/mc L [facility] RDW Standard Deviation 53.5(H) 37.0 - 46.0 fL [facility] RDW coefficient of variation 14.4(H) 11.5 - 14.1 % [facility] Mean Platelet Volume 9.8 7.6 - 12.9 fL [facility] NRBC% auto 0.0 % [facility] NRBC Absolute 0.000 0.000 - 0.000 x10(3)/[facility] Blood 07/17/2023 12:0 7 PM EDT 07/17/2023 4:05 PM EDT Narrative Resulting Agency Comment Spec In Lab Nilda Luis MD HEMATOLOGY ORDERABL ES [facility] [place] [address] * (ABNORMAL) Differential, Automated (07/17/2023 12:07 PM EDT) Neutrophil % 60.1 % [facility] Neutrophil Absolute 5.99 1.70 - 6.10 x10(3)/[facility] Lymph % 21.1 % [facility] Lymphocytes Abs 2.1 0.9 - 3.2 x10(3)/[facility] Monocyte % 11.5 % [facility] Monocyte Abs 1.2(H) 0.3 - 0.9 x10(3)/[facility] Eos % 5.4 % [facility] Eosinophils Abs 0.5(H) 0.0 - 0.4 x10(3)/[facility] Basophil % 1.6 % [facility] Baso Absolute 0.2(H) 0.0 - 0.1 x10(3)/ L [facility] Immature Gran % 0.30 % [facility] Comment: Immature granulocytes(IG's)percentage and absolute count will include metamyelocytes, myelocytes, and promyelocytes. Blood smears from CBCs yielding IG's will be scanned manually for concordance. If this scan disagrees with the automated IG or if promyelocytes are noted, a manual differential will be performed. Immature Gran Absolute 0.03 0.00 - 0.04 x10(3)/ L [facility] Blood 07/17/2023 12:0 7 PM EDT 07/17/2023 4:05 PM EDT Narrative Resulting Agency Comment Spec In Lab Nilda Luis MD HEMATOLOGY ORDERABL ES [facility] [place] [address] * (ABNORMAL) Comprehensive metabolic panel (non-fasting) (07/17/2023 12:07 PM EDT) Glucose 91 65 - 199 mg/dL [facility] Comment:Diabetes: >=200 mg/d L plus symptoms Blood Urea Nitrogen 34(H) 8 - 18 mg/dL [facility] Creatinine 1.82(H) 0.70 - 1.20 mg/dL [facility] Sodium 143 135 - 145 mmol/L [facility] Potassium 4.7 3.5 - 5.0 mmol/L [facility] Comment: Please note: ??Patients with WBC >100,000 may have falsely elevated Potassium levels. ??For accurate Potassium quantification in these patients send serum separator tube (gold top) for subsequent determinations. ??Contact the Clinical Chemistry Laboratory if there are any questions. Chloride 107 98 - 107 mmol/L [facility] Carbon Dioxide 22 22 - 31 mmol/L [facility] Anion Gap 14 5 - 15 mmol/L [facility] Calcium 9.5 8.5 - 10.5 mg/dL [facility] Protein, Total 7.1 6.1 - 8.0 g/dL [facility] Albumin 4.5 3.2 - 5.2 g/dL [facility] Aspartate Aminotransferase 15 0 - 30 unit/L [facility] Alanine Aminotransferase 16 0 - 30 unit/L [facility] Alkaline Phosphatase 111(H) 35 - 105 unit/L [facility] Bilirubin, Total 0.5 0.2 - 1.3 mg/dL [facility] Est Glomerular Filtration Rate 31(L) >=60 mL/min/1. 73 m?? [facility] [...] MD CHEMISTRY ORDERABLE S Performing Organization Address City/State/[facility] Co de Phone Number [facility] [place] [address] * Surgical Pathology Report (07/17/2023 11:35 AM EDT) Final Diagnosis [id number] ? Location: HDM The signing pathologist has (i) examined the relevant preparation(s) for the specimen(s) and (ii) rendered or confirmed the diagnosis(es). . ?Surgical Pathology DIAGNOSIS L eft medial lower leg, skin shave biopsy: - Pigmented macular ??seborrheic keratosis Electronically signed by: ?Oscar RENEE, PhD, Pk Lanier Verified: ??07/24/2023 8:42 ?? Dermatopathologist, Bone & Soft Tissue Pathologist Performed at: ??-[facility] Dept. of Pathology, [place] [address] [employer] Flight Attendant: Yoselin Pimentel MD, AP, ??CLIA Certificate: [id number] SPECIMEN(S) SUBMITTED A - left medial lower [...] ?A2: ??Body ??sdy 07/24/2023 8:42 AM EDT [facility] SPECIMEN FROM SKIN / Unknown 07/17/2023 11:35 AM EDT 07/17/2023 11:35 AM EDT Nilda Luis MD PATHOLOGY/CYTOLOGY ORDERABLES [facility] [place] [address] * HPV (11/10/2022 11:30 AM EDT) HPV16 NEGATIVE NEGATIVE [facility] HPV 18 NEGATIVE NEGATIVE [facility] HPV Other HR NEGATIVE NEGATIVE [facility] HPV Interpretation See Comment [facility] Comment: NEGATIVE for high-risk HPV [...] CNM PATHOLOGY/CYTOLO GY ORDERABLES Performing Organization Address [facility]/State/ZIP Co de Phone Number [facility] [place] [address] * Valet Runner Cytology Final Report (11/10/2022 11:30 AM EDT) Valet Runner Cytology Final Report [id number] ? Location: 5L The signing pathologist has (i) examined the relevant preparation(s) for the specimen(s) and (ii) rendered or confirmed the diagnosis(es). . ? Valet Runner Final DIAGNOSIS Normal Negative for intraepithelial lesion or malignancy (NILM). For consensus guidelines for the management of cervical cancer screening test results, please see: ?? http://www.asccp.o rg . Electronically signed by: ?Bk CARL(ASCP)Jillian Verified: ??11/27/2022 12:15 ??Millinery Copyist Performed at: ??-[facility] Dept. of Pathology, [place] [address] International Flight Attendant: Yoselin Pimentel MD, FCAP, ??CLIA Certificate: [id number] DISCUSSION Shift in faheem suggestive of bacterial [...] detect low risk HPV types. Method: Josesito nole HPV test (FDA-approved for clinical use) Specimen: HPV Testing ?? - Cytology Liquid Based Prep This test is validated for cervical specimens only for use in cervical cancer screening. ??Other uses or specimen types are not validated/rec ommended. The Josesito noel ? HPV test was validated, performed and results reported through the [facility] ([facility]) at [facility]. ? - Dave Arizmendi, PhD, [facility], Director-[facility] STATEMENT OF ADEQUACY Specimen submitted is satisfactory. Endocervical component present. CLINICAL INFORMATION HPV Option: ?Concurrent HPV and Pap CT/NG Option: ?No Preparation: ? Liquid based Pap Specimen Source: ? Cervical/Endocervi kee LMP: ? postmenopause Hysterectomy: ?No : ?No : ?No I.U.D.: ?No Pelvic Radiation: ?No Hist Abnl Pap/Biopsy: ?Yes, history of previous abnormal Pap Prior MEDICAL DOCTOR Therapy: ? No . CLINICAL INFORMATION Hist [...] variables. For further information please contact the [facility] Laboratory. Reference: Kalyan RODRIGUEZ. [employer] Cleaner of Pap Smear Results. In: Shaggy BS, Laci HH, ed. The Pap Smear. [facility] [place]: Adebayo, 2002: 71-77. [facility] 11/10/2022 11:3 0 AM EDT Abby Phoenix CNM PATHOLOGY/CYTOLO GY ORDERABLES Performing Organization Address City/[facility]/ZIP Co de Phone Number [facility] [place] [address] * Hepatitis C Antibody (07/24/2018 4:14 PM EDT) Hepatitis C Antibody Negative Negative [facility] Blood specimen (specimen) 07/24/2018 4:14 PM EDT 07/24/2018 6:02 PM EDT Narrative Resulting Agency Comment Spec In Lab Ernestine Gaines MD CHEMISTRY ORDERABLES Performing Organization Address [facility] Co de Phone Number [facility] [address] * Mammo Screen CAD and Bob Bilat [...] Status decision made by: Patient Care Teams Radiology Rn Relationship Specialty Start Date End Date Trinh Coates MD [facility] [address] [place] [address] PCP - General 01/11/10
--- OUTSIDE RECORDS SUMMARY | 2023-09-25 11:40 | XMS_ITS | Data Portability ---
Author Organization [facility] Address [address] [place] [address] Care Team Providers Care User Experience Developer Name Role Phone MOO WOODALL Rubber Tubing Backer KSENIA NAZARIO Orthopedic Surgeon PRISCILA CALIXTO Neurosurgeon JAY BARRAZA Associate Professor Of English RANDY MAYFIELD Medical Oncologist Assessment Encounter Date Assessment Date Assessment LastModified by Organization Details LastModified Time 06/08/2023 06/08/2023 The total time devoted to today's encounter, including both the aytv-ds-lagu time with the patient and/or family/caregi vicente and bxm-cdcl-cu-f ritika time I personally spent is 42 minutes. Not available 06/08/2023 17:23:22 Plan of Treatment Reminders Order Date Submit Date Provider Last Modified By Organization Details Last Modified Time Details Appointments Follow Up 30 2023 03:00P Yannick Coates Not available Not available Not available Lab HbA1c (hemoglob in A1c), blood 2023 024 [facility] (Registration ), [address] [place] [address] [place], [address], 03/09/2023 08:58:09 BMP, serum or plasma 2023 024 [facility] (Registration ), [address] [place] [address] [place], [address], 03/09/2023 08:58:09 BMP, serum or plasma 2023 024 [facility] (Registration ), [address] [place] [address] [place], [address], 04/09/2023 11:45:37 BMP, serum or plasma 2023 024 [facility] (Registration ), [address] [place] [address] [place], [address], 09/09/2023 19:38:34 magnesium , serum or plasma 2023 024 [facility] (Registration ), [address] [place] [address] [place], [address], 09/09/2023 19:38:19 Referral None recorded. Procedures None recorded. Surgeries None recorded. Imaging None recorded. Medication Orders gabapenti n 300 mg capsule 2023 024 [email or web address] [facility], [address] [place] [address], [id number], 03/02/2023 16:35:03 fluoxetin e 40 mg capsule 2023 024 [facility], [address] [place], [address], 03/02/2023 16:35:03 valacyclo vir 500 mg tablet 2023 024 TOMA [facility], [address] [place], [address], 03/02/2023 16:55:48 rosuvasta tin 10 mg tablet 2023 024 [facility], [address] [place], [address], 03/02/2023 16:25:28 topiramat e 25 mg tablet 2023 024 [facility], [address] [place] [address], [id number], 04/02/2023 18:53:04 phentermi ne 15 mg capsule 2023 024 [facility], [address] [place] [address], [id number], 06/08/2023 14:35:48 topiramat e 50 mg tablet 2023 024 [facility], [address] [place] [address], [address], 04/02/2023 18:53:11 exemestan e 25 mg tablet 2023 024 [email or web address] [facility], [address] [place] [address], [address], 03/02/2023 16:35:03 diltiazem CD 240 mg capsule,e xtended release 24 hr 2023 024 [email or web address] [facility], [address] [place] [address], [address], 03/02/2023 16:25:28 spironola ctone 25 mg tablet 2023 024 [email or web address] [facility], [address] [place] [address], [address], 03/02/2023 16:25:28 losartan 100 mg tablet 2023 024 [email or web address] [facility], [address] [place] [address], [address], 04/02/2023 18:53:48 erythromy zack 5 mg/gram (0.5 %) eye ointment 2023 024 TOMA [facility], [address] [place] [address], [id number], 09/07/2023 09:59:40 cefdinir 300 mg capsule 2023 024 TOMA [facility], [address] [place] [address], [id number], 09/07/2023 09:59:24 Wegovy 0.25 mg/0.5 mL subcutane ous pen injector 2023 024 [email or web address] [facility], [address] [place] [address], [address], 09/07/2023 10:00:11 valacyclo vir 500 mg tablet 2023 024 TOMA [facility], [address] [place] [address], [address], 06/08/2023 14:31:37 Victoza 3-Steve 0.6 mg/0.1 mL (18 mg/3 mL) subcutane ous pen injector 2023 024 [email or web address] [facility], [address] [place] [address], [id number], 09/07/2023 10:19:53 Wegovy 0.25 mg/0.5 mL subcutane ous pen injector 2023 024 TOMA [facility], [address] [place] [address], [address], 09/07/2023 11:55:02 Wegovy 0.5 mg/0.5 mL subcutane ous pen injector 2023 024 TOMA [facility], [address] [place] [address], [address], 09/07/2023 11:57:35 Wegovy 1 mg/0.5 mL subcutane ous pen injector 2023 024 TOMA [facility], [address] [place], [address], 09/07/2023 11:57:35 Patient TargetsNo targets recorded. Patient Instructions Encounter Date Encounter Id Patient Instructions Last Modified By Organization Details Last Modified Time 03/02/2023 [id number] Try starting phentermine 15 mg daily. After a week start topiramate 25 mg once a day for a few days, then twice a day. After 2 weeks, increase to 50 mg twice a day. the topiramate may cause metal taste. May make your numbness and tingling better or worse. Not available 03/02/2023 15:33:29 06/05/2023 [id number] cellulitis of th e eye: care instructions [email or web address] Not available 06/05/2023 11:05:38 06/08/2023 [id number] I am going to e if your insurance will cover WEGOVY or ZEPBOUND which are the obesity versions of these diabetic medications- if they are too expensive/ not covered, we could try the once a day version VICTOZA through [facility] mail away pharmacy When you have the medication, call to set up an appointment with Brittney, our diabetic nurse. Not available 06/08/2023 14:48:53 09/07/2023 [id number] diet Not available 09/06 10:19:51 exercise Not available 2023 10:19:51 Reason for Referral None Reported. Results Created Date Observation Date Name Description Value Unit Range Abnormal Flag LastModifiedBy Organization Detail LastModifiedTime 03/02/1903/02/2023 HEMOG LOBIN A1C hemoglobin A1C 5.8 % <5.7 high Not Available [facility] (Registration ) [address] [place] [address] [place], [address], 03/02/2023 19:35:17 03/02/19 24 03/02/2023 BASIC METAB OLIC PANEL calcium 9.7 mg/dL 8.5-10 .1 normal Not Available [address] [place], [address] 03/02/2023 22:08:34 03/02/19 24 03/02/2023 BASIC METAB OLIC PANEL glucose 101 mg/dL 74-106 normal Not Available [address] [place], [address] 03/02/2023 22:08:34 03/02/19 24 03/02/2023 BASIC METAB OLIC PANEL BUN 38 mg/dL 7-18 high Not Available [facility] [address], [address] 03/02/2023 22:08:34 03/02/19 24 03/02/2023 BASIC METAB OLIC PANEL creatinine 2.2 mg/dL 0.55-1 .02 high Not Available [address] [place], [address] 03/02/2023 22:08:34 03/02/19 24 03/02/2023 BASIC METAB OLIC PANEL estimated GFR 25.20 mL/min /1.73m 2 Not Available [address] [place], [address] 03/02/2023 22:08:34 03/02/19 24 03/02/2023 BASIC METAB OLIC PANEL sodium 140 mmol/ L 136-14 5 normal Not Available [address] [place], [address] 03/02/2023 22:08:34 03/02/19 24 03/02/2023 BASIC METAB OLIC PANEL potassium 4.4 mmol/ L 3.5-5. 1 normal Not Available [address] [place], [address] 03/02/2023 22:08:34 03/02/19 24 03/02/2023 BASIC METAB OLIC PANEL chloride 105 mmol/ L 98-107 normal Not Available [address] [place], [address] 03/02/2023 22:08:34 03/02/19 24 03/02/2023 BASIC METAB OLIC PANEL CO2 25.2 mmol/ L 21.0-3 2.0 normal Not Available [address] [place], [address] 03/02/2023 22:08:34 03/02/19 24 03/02/2023 BASIC METAB OLIC PANEL anion gap 9.8 mmol/ L 3-11 normal Not Available [address] [place], [address] 03/02/2023 22:08:34 04/02/19 24 04/02/2023 BASIC METAB OLIC PANEL calcium 9.5 mg/dL 8.5-10 .1 normal Not Available [address] [place], [address] 04/02/2023 16:03:26 04/02/19 24 04/02/2023 BASIC METAB OLIC PANEL glucose 93 mg/dL 74-106 normal Not Available [facility] [address] [place], [address] 04/02/2023 16:03:26 04/02/19 24 04/02/2023 BASIC METAB OLIC PANEL BUN 31 mg/dL 7-18 high Not Available [facility] [address] [place], [address] 04/02/2023 16:03:26 04/02/19 24 04/02/2023 BASIC METAB OLIC PANEL creatinine 1.9 mg/dL 0.55-1 .02 high Not Available [address] [place], [address] 04/02/2023 16:03:26 04/02/19 24 04/02/2023 BASIC METAB OLIC PANEL estimated GFR 30.04 mL/min /1.73m 2 Not Available [address] [place], [address] 04/02/2023 16:03:26 04/02/19 24 04/02/2023 BASIC METAB OLIC PANEL sodium 146 mmol/ L 136-14 5 high Not Available [address] [place], [address] 04/02/2023 16:03:26 04/02/19 24 04/02/2023 BASIC METAB OLIC PANEL potassium 5.1 mmol/ L 3.5-5. 1 normal Not Available [address] [place], [address] 04/02/2023 16:03:26 04/02/19 24 04/02/2023 BASIC METAB OLIC PANEL chloride 110 mmol/ L 98-107 high Not Available [address] [place], [address] 04/02/2023 16:03:26 04/02/19 24 04/02/2023 BASIC METAB OLIC PANEL CO2 23.3 mmol/ L 21.0-3 2.0 normal Not Available [address] [place], [address] 04/02/2023 16:03:26 04/02/19 24 04/02/2023 BASIC METAB OLIC PANEL anion gap 12.7 mmol/ L 3-11 high Not Available [address] [place], [address] 04/02/2023 16:03:26 05/20/19 24 05/20/2023 COMPL ETE BLOOD COUNT W/DIF F WBC 12.31 10_3/ uL 4.4-10 .8 high Not Available [address] [place], [address] 05/20/2023 14:54:36 05/20/19 24 05/20/2023 COMPL ETE BLOOD COUNT W/DIF F RBC 4.09 10_6/ uL 3.93-5 .22 normal Not Available [address] [place], [address] 05/20/2023 14:54:36 05/20/19 24 05/20/2023 COMPL ETE BLOOD COUNT W/DIF F HGB 12.7 g/dL 11.2-1 5.7 normal Not Available [address] [place], [address] 05/20/2023 14:54:36 05/20/19 24 05/20/2023 COMPL ETE BLOOD COUNT W/DIF F HCT 39.2 % 36.0-4 6.0 normal Not Available [address] [place], [address] 05/20/2023 14:54:36 05/20/19 24 05/20/2023 COMPL ETE BLOOD COUNT W/DIF F MCV 96 fL 80-95 high Not Available [facility] [address] [place], [address] 05/20/2023 14:54:36 05/20/19 24 05/20/2023 COMPL ETE BLOOD COUNT W/DIF F MCH 31.1 pg 27.0-3 3.0 normal Not Available [address] [place], [address] 05/20/2023 14:54:36 05/20/19 24 05/20/2023 COMPL ETE BLOOD COUNT W/DIF F MCHC 32.4 % 32.0-3 6.0 normal Not Available [address] [place], [address] 05/20/2023 14:54:36 05/20/19 24 05/20/2023 COMPL ETE BLOOD COUNT W/DIF F RDW 13.6 % 11.7-1 4.6 normal Not Available [address] [place], [address] 05/20/2023 14:54:36 05/20/19 24 05/20/2023 COMPL ETE BLOOD COUNT W/DIF F platelet count 347 10_3/ uL 130-40 0 normal Not Available [address] [place], [address] 05/20/2023 14:54:36 05/20/19 24 05/20/2023 COMPL ETE BLOOD COUNT W/DIF F MPV 9.5 fL 8.0-11 .0 normal Not Available [address] [place], [address] 05/20/2023 14:54:36 05/20/19 24 05/20/2023 COMPL ETE BLOOD COUNT W/DIF F neutrophils % 71.6 Not Available [address] [place], [address] 05/20/2023 14:54:36 05/20/19 24 05/20/2023 COMPL ETE BLOOD COUNT W/DIF F lymphocytes % 14.9 Not Available [address] [place], [address] 05/20/2023 14:54:36 05/20/19 24 05/20/2023 COMPL ETE BLOOD COUNT W/DIF F monocytes % 10.6 Not Available [address] [place], [address] 05/20/2023 14:54:36 05/20/19 24 05/20/2023 COMPL ETE BLOOD COUNT W/DIF F eosinophils % 1.6 Not Available [address] [place], [address] 05/20/2023 14:54:36 05/20/19 24 05/20/2023 COMPL ETE BLOOD COUNT W/DIF F basophils % 0.9 Not Available [address] [place], [address] 05/20/2023 14:54:36 05/20/19 24 05/20/2023 COMPL ETE BLOOD COUNT W/DIF F immature grans % 0.4 Not Available [address] [place], [address] 05/20/2023 14:54:36 05/20/19 24 05/20/2023 COMPL ETE BLOOD COUNT W/DIF F nucleated RBC 0.0 % 0.0-0. 3 normal Not Available [address] [place], [address] 05/20/2023 14:54:36 05/20/19 24 05/20/2023 COMPL ETE BLOOD COUNT W/DIF F absolute neutrophil count 8.81 10_3/ uL 1.2-6. 7 high Not Available [address] [place], [address] 05/20/2023 14:54:36 05/20/19 24 05/20/2023 COMPL ETE BLOOD COUNT W/DIF F absolute lymphocyte count 1.83 10_3/ uL 1.2-3. 4 normal Not Available [address] [place], [address] 05/20/2023 14:54:36 05/20/19 24 05/20/2023 COMPL ETE BLOOD COUNT W/DIF F absolute monocyte count 1.30 10_3/ uL 0.1-0. 8 high Not Available [address] [place], [address] 05/20/2023 14:54:36 05/20/19 24 05/20/2023 COMPL ETE BLOOD COUNT W/DIF F absolute eosinophil count 0.20 10_3/ uL 0.0-0. 7 normal Not Available [address] [place], [address] 05/20/2023 14:54:36 05/20/19 24 05/20/2023 COMPL ETE BLOOD COUNT W/DIF F absolute basophil count 0.11 10_3/ uL 0.0-0. 2 normal Not Available [address] [place], [address] 05/20/2023 14:54:36 05/20/19 24 05/20/2023 ESR ESR 63 mm/HR 0-30 high Not Available [address] [place], [address] 05/20/2023 14:54:37 05/20/19 24 05/20/2023 COMPR EHENS FARHAT METAB OLIC PANEL calcium 9.0 mg/dL 8.5-10 .1 normal Not Available [address] [place], [address] 05/20/2023 15:17:38 05/20/19 24 05/20/2023 COMPR EHENS FARHAT METAB OLIC PANEL glucose 78 mg/dL 74-106 normal Not Available [address] [place], [address] 05/20/2023 15:17:38 05/20/19 24 05/20/2023 COMPR EHENS FARHAT METAB OLIC PANEL BUN 39 mg/dL 7-18 high Not Available [address] [place], [address] 05/20/2023 15:17:38 05/20/19 24 05/20/2023 COMPR EHENS FARHAT METAB OLIC PANEL creatinine 1.9 mg/dL 0.55-1 .02 high Not Available [address] [place], [address] 05/20/2023 15:17:38 05/20/19 24 05/20/2023 COMPR EHENS FARHAT METAB OLIC PANEL estimated GFR 30.04 mL/min /1.73m 2 Not Available [address] [place], [address] 05/20/2023 15:17:38 05/20/19 24 05/20/2023 COMPR EHENS FARHAT METAB OLIC PANEL total protein 8.2 g/dL 6.4-8. 2 normal Not Available [address] [place], [address] 05/20/2023 15:17:38 05/20/19 24 05/20/2023 COMPR EHENS FARHAT METAB OLIC PANEL albumin 3.6 g/dL 3.4-5. 0 normal Not Available [address] [place], [address] 05/20/2023 15:17:38 05/20/19 24 05/20/2023 COMPR EHENS FARHAT METAB OLIC PANEL bilirubin, total 0.6 mg/dL 0.2-1. 0 normal Not Available [address] [place], [address] 05/20/2023 15:17:38 05/20/19 24 05/20/2023 COMPR EHENS FARHAT METAB OLIC PANEL alk phos 117 U/L 46-116 high Not Available [address] [place], [address] 05/20/2023 15:17:38 05/20/19 24 05/20/2023 COMPR EHENS FARHAT METAB OLIC PANEL sodium 141 mmol/ L 136-14 5 normal Not Available [address] [place], [address] 05/20/2023 15:17:38 05/20/19 24 05/20/2023 COMPR EHENS FARHAT METAB OLIC PANEL potassium 3.9 mmol/ L 3.5-5. 1 normal Not Available [address] [place], [address] 05/20/2023 15:17:38 05/20/19 24 05/20/2023 COMPR EHENS FARHAT METAB OLIC PANEL chloride 105 mmol/ L 98-107 normal Not Available [address] [place], [address] 05/20/2023 15:17:38 05/20/19 24 05/20/2023 COMPR EHENS FARHAT METAB OLIC PANEL CO2 24.4 mmol/ L 21.0-3 2.0 normal Not Available [address] [place], [address] 05/20/2023 15:17:38 05/20/19 24 05/20/2023 COMPR EHENS FARHAT METAB OLIC PANEL anion gap 11.6 mmol/ L 3-11 high Not Available [address] [place], [address] 05/20/2023 15:17:38 05/20/19 24 05/20/2023 COMPR EHENS FARHAT METAB OLIC PANEL AST 13 U/L 15-37 low Not Available [address] [place], [address] 05/20/2023 15:17:38 05/20/19 24 05/20/2023 COMPR EHENS FARHAT METAB OLIC PANEL ALT 23 U/L 14-59 normal Not Available [address] [place], [address] 05/20/2023 15:17:38 05/20/19 24 05/20/2023 C-JAMAAL CTIVE PROTE IN C-reactive protein 8.98 mg/dL <or=0. 5 high Not Available [address] [place], [address] 05/20/2023 15:17:38 05/20/19 24 05/21/2023 LLOOD CULTU RE ( AGE => 8 YRS) llood culture ( age => 8 yrs) Not Available [address] [place], [address] 05/21/2023 18:40:42 05/20/19 24 05/21/2023 LLOOD CULTU RE ( AGE => 8 YRS) llood culture ( age => 8 yrs) Not Available [address] [place], [address] 05/21/2023 18:40:43 05/20/19 24 05/22/2023 LLOOD CULTU RE ( AGE => 8 YRS) llood culture ( age => 8 yrs) Not Available [address] [place], [address] 05/22/2023 18:41:37 05/20/19 24 05/22/2023 LLOOD CULTU RE ( AGE => 8 YRS) llood culture ( age => 8 yrs) Not Available [address] [place], [address] 05/22/2023 18:41:38 05/20/19 24 05/23/2023 LLOOD CULTU RE ( AGE => 8 YRS) llood culture ( age => 8 yrs) Not Available [address] [place], [address] 05/25/2023 10:34:28 05/20/19 24 05/23/2023 LLOOD CULTU RE ( AGE => 8 YRS) llood culture ( age => 8 yrs) Not Available [address] [place], [address] 05/25/2023 10:34:28 05/20/19 24 05/24/2023 LLOOD CULTU RE ( AGE => 8 YRS) llood culture ( age => 8 yrs) Not Available [address] [place], [address] 05/25/2023 10:35:27 05/20/19 24 05/24/2023 LLOOD CULTU RE ( AGE => 8 YRS) llood culture ( age => 8 yrs) Not Available [address] [place], [address] 05/25/2023 10:35:28 05/20/19 24 05/25/2023 LLOOD CULTU RE ( AGE => 8 YRS) llood culture ( age => 8 yrs) Not Available [address] [place], [address] 05/25/2023 18:42:49 05/20/19 24 05/25/2023 LLOOD CULTU RE ( AGE => 8 YRS) llood culture ( age => 8 yrs) Not Available [address] [place], [address] 05/25/2023 18:42:50 05/21/19 24 05/21/2023 URINA LYSIS color Yellow yellow Not Available [address] [place], [address] 05/21/2023 08:38:00 05/21/19 24 05/21/2023 URINA LYSIS clarity Clear clear Not Available [address] [place], [address] 05/21/2023 08:38:00 05/21/19 24 05/21/2023 URINA LYSIS specific gravity 1.020 1.005- 1.025 normal Not Available [address] [place], [address] 05/21/2023 08:38:00 05/21/19 24 05/21/2023 URINA LYSIS pH 5.5 5-8 normal Not Available [facility] [address] [place], [address] 05/21/2023 08:38:00 05/21/19 24 05/21/2023 URINA LYSIS leukocyte esterase Negati ve negati ve Not Available [address] [place], [address] 05/21/2023 08:38:00 05/21/19 24 05/21/2023 URINA LYSIS nitrite Negati ve negati ve Not Available [address] [place], [address] 05/21/2023 08:38:00 05/21/19 24 05/21/2023 URINA LYSIS protein 100 mg/dL neg-tr ritika abnormal Not Available [address] [place], [address] 05/21/2023 08:38:00 05/21/19 24 05/21/2023 URINA LYSIS glucose 100 mg/dL negati ve abnormal Not Available [address] [place], [address] 05/21/2023 08:38:00 05/21/19 24 05/21/2023 URINA LYSIS ketones Negati ve mg/dL negati ve Not Available [address] [place], [address] 05/21/2023 08:38:00 05/21/19 24 05/21/2023 URINA LYSIS urobilinogen 0.2 mg/dL up to 0.2 Not Available [address] [place], [address] 05/21/2023 08:38:00 05/21/19 24 05/21/2023 URINA LYSIS bilirubin Negati ve negati ve Not Available [address] [place], [address] 05/21/2023 08:38:00 05/21/19 24 05/21/2023 URINA LYSIS blood Negati ve negati ve Not Available [address] [place], [address] 05/21/2023 08:38:00 05/21/19 24 05/21/2023 URINA LYSIS color Yellow yellow Not Available [facility] [address] [place], [address] 05/21/2023 08:45:03 05/21/19 24 05/21/2023 URINA LYSIS clarity Clear clear Not Available [address] [place], [address] 05/21/2023 08:45:03 05/21/19 24 05/21/2023 URINA LYSIS specific gravity 1.020 1.005- 1.025 normal Not Available [address] [place], [address] 05/21/2023 08:45:03 05/21/19 24 05/21/2023 URINA LYSIS pH 5.5 5-8 normal Not Available [facility] [address] [place], [address] 05/21/2023 08:45:03 05/21/19 24 05/21/2023 URINA LYSIS leukocyte esterase Negati ve negati ve Not Available [address] [place], [address] 05/21/2023 08:45:03 05/21/19 24 05/21/2023 URINA LYSIS nitrite Negati ve negati ve Not Available [address] [place], [address] 05/21/2023 08:45:03 05/21/19 24 05/21/2023 URINA LYSIS protein 100 mg/dL neg-tr ritika abnormal Not Available [address] [place], [address] 05/21/2023 08:45:03 05/21/19 24 05/21/2023 URINA LYSIS glucose 100 mg/dL negati ve abnormal Not Available [address] [place], [address] 05/21/2023 08:45:03 05/21/19 24 05/21/2023 URINA LYSIS ketones Negati ve mg/dL negati ve Not Available [address] [place], [address] 05/21/2023 08:45:03 05/21/19 24 05/21/2023 URINA LYSIS urobilinogen 0.2 mg/dL up to 0.2 Not Available [address] [place], [address] 05/21/2023 08:45:03 05/21/19 24 05/21/2023 URINA LYSIS bilirubin Negati ve negati ve Not Available [address] [place], [address] 05/21/2023 08:45:03 05/21/19 24 05/21/2023 URINA LYSIS blood Negati ve negati ve Not Available [address] [place], [address] 05/21/2023 08:45:03 05/21/19 24 05/21/2023 MICRO SCOPI C FINDI NGS WBC Negati ve hpf 0-5 Not Available [address] [place], [address] 05/21/2023 08:45:04 05/21/19 24 05/21/2023 MICRO SCOPI C FINDI NGS RBC Negati ve hpf 0-2 Not Available [address] [place], [address] 05/21/2023 08:45:04 05/21/19 24 05/21/2023 MICRO SCOPI C FINDI NGS epithelial cells Few hpf negati ve Not Available [address] [place], [address] 05/21/2023 08:45:04 05/21/19 24 05/21/2023 MICRO SCOPI C FINDI NGS bacteria Negati ve hpf negati ve Not Available [address] [place], [address] 05/21/2023 08:45:04 05/21/19 24 05/21/2023 MICRO SCOPI C FINDI NGS crystals Negati ve hpf negati ve Not Available [address] [place], [address] 05/21/2023 08:45:04 05/21/19 24 05/21/2023 MICRO SCOPI C FINDI NGS mucus Negati ve negati ve Not Available [address] [place], [address] 05/21/2023 08:45:04 05/21/19 24 05/21/2023 MICRO SCOPI C FINDI NGS casts 5-10 Hyalin e lpf negati ve Not Available [address] [place], [address] 05/21/2023 08:45:04 05/21/19 24 05/21/2023 MICRO SCOPI C FINDI NGS C S indicated? No Not Available [address] [place], [address] 05/21/2023 08:45:04 05/21/19 24 05/21/2023 COMPL ETE BLOOD COUNT W/DIF F WBC 16.46 10_3/ uL 4.4-10 .8 high Not Available [address] [place], [address] 05/21/2023 18:00:36 05/21/19 24 05/21/2023 COMPL ETE BLOOD COUNT W/DIF F RBC 3.58 10_6/ uL 3.93-5 .22 low Not Available [address] [place], [address] 05/21/2023 18:00:36 05/21/19 24 05/21/2023 COMPL ETE BLOOD COUNT W/DIF F HGB 11.1 g/dL 11.2-1 5.7 low Not Available [address] [place], [address] 05/21/2023 18:00:36 05/21/19 24 05/21/2023 COMPL ETE BLOOD COUNT W/DIF F HCT 33.8 % 36.0-4 6.0 low Not Available [address] [place], [address] 05/21/2023 18:00:36 05/21/19 24 05/21/2023 COMPL ETE BLOOD COUNT W/DIF F MCV 94 fL 80-95 normal Not Available [address] [place], [address] 05/21/2023 18:00:36 05/21/19 24 05/21/2023 COMPL ETE BLOOD COUNT W/DIF F MCH 31.0 pg 27.0-3 3.0 normal Not Available [address] [place], [address] 05/21/2023 18:00:36 05/21/19 24 05/21/2023 COMPL ETE BLOOD COUNT W/DIF F MCHC 32.8 % 32.0-3 6.0 normal Not Available [address] [place], [address] 05/21/2023 18:00:36 05/21/19 24 05/21/2023 COMPL ETE BLOOD COUNT W/DIF F RDW 13.2 % 11.7-1 4.6 normal Not Available [address] [place], [address] 05/21/2023 18:00:36 05/21/19 24 05/21/2023 COMPL ETE BLOOD COUNT W/DIF F platelet count 332 10_3/ uL 130-40 0 normal Not Available [address] [place], [address] 05/21/2023 18:00:36 05/21/19 24 05/21/2023 COMPL ETE BLOOD COUNT W/DIF F MPV 9.2 fL 8.0-11 .0 normal Not Available [address] [facility] [place], [address] 05/21/2023 18:00:36 05/21/19 24 05/21/2023 COMPL ETE BLOOD COUNT W/DIF F neutrophils % 87.5 Not Available [address] [place], [address] 05/21/2023 18:00:36 05/21/19 24 05/21/2023 COMPL ETE BLOOD COUNT W/DIF F lymphocytes % 6.8 Not Available [address] [facility] [place], [address] 05/21/2023 18:00:36 05/21/19 24 05/21/2023 COMPL ETE BLOOD COUNT W/DIF F monocytes % 4.7 Not Available [address] [facility] [place], [address] 05/21/2023 18:00:36 05/21/19 24 05/21/2023 COMPL ETE BLOOD COUNT W/DIF F eosinophils % 0.0 Not Available [address] [place], [address] 05/21/2023 18:00:36 05/21/19 24 05/21/2023 COMPL ETE BLOOD COUNT W/DIF F basophils % 0.1 Not Available [address] [facility] [place], [address] 05/21/2023 18:00:36 05/21/19 24 05/21/2023 COMPL ETE BLOOD COUNT W/DIF F immature grans % 0.9 Not Available [address] [place], [address] 05/21/2023 18:00:36 05/21/19 24 05/21/2023 COMPL ETE BLOOD COUNT W/DIF F nucleated RBC 0.0 % 0.0-0. 3 normal Not Available [address] [place], [address] 05/21/2023 18:00:36 05/21/19 24 05/21/2023 COMPL ETE BLOOD COUNT W/DIF F absolute neutrophil count 14.40 10_3/ uL 1.2-6. 7 high Not Available [address] [place], [address] 05/21/2023 18:00:36 05/21/19 24 05/21/2023 COMPL ETE BLOOD COUNT W/DIF F absolute lymphocyte count 1.12 10_3/ uL 1.2-3. 4 low Not Available [address] [place], [address] 05/21/2023 18:00:36 05/21/19 24 05/21/2023 COMPL ETE BLOOD COUNT W/DIF F absolute monocyte count 0.77 10_3/ uL 0.1-0. 8 normal Not Available [address] [place], [address] 05/21/2023 18:00:36 05/21/19 24 05/21/2023 COMPL ETE BLOOD COUNT W/DIF F absolute eosinophil count 0.00 10_3/ uL 0.0-0. 7 normal Not Available [address] [place], [address] 05/21/2023 18:00:36 05/21/19 24 05/21/2023 COMPL ETE BLOOD COUNT W/DIF F absolute basophil count 0.02 10_3/ uL 0.0-0. 2 normal Not Available [address] [place], [address] 05/21/2023 18:00:36 05/21/19 24 05/21/2023 COMPR EHENS FARHAT METAB OLIC PANEL calcium 8.6 mg/dL 8.5-10 .1 normal Not Available [address] [place], [address] 05/21/2023 18:17:38 05/21/19 24 05/21/2023 COMPR EHENS FARHAT METAB OLIC PANEL glucose 275 mg/dL 74-106 high Not Available [facility] [address] [place], [address] 05/21/2023 18:17:38 05/21/19 24 05/21/2023 COMPR EHENS FARHAT METAB OLIC PANEL BUN 42 mg/dL 7-18 high Not Available [facility] [address] [place], [address] 05/21/2023 18:17:38 05/21/19 24 05/21/2023 COMPR EHENS FARHAT METAB OLIC PANEL creatinine 1.9 mg/dL 0.55-1 .02 high Not Available [address] [place], [address] 05/21/2023 18:17:38 05/21/19 24 05/21/2023 COMPR EHENS FARHAT METAB OLIC PANEL estimated GFR 30.04 mL/min /1.73m 2 Not Available [address] [place], [address] 05/21/2023 18:17:38 05/21/19 24 05/21/2023 COMPR EHENS FARHAT METAB OLIC PANEL total protein 6.9 g/dL 6.4-8. 2 normal Not Available [address] [place], [address] 05/21/2023 18:17:38 05/21/19 24 05/21/2023 COMPR EHENS FARHAT METAB OLIC PANEL albumin 2.8 g/dL 3.4-5. 0 low Not Available [address] [place], [address] 05/21/2023 18:17:38 05/21/19 24 05/21/2023 COMPR EHENS FARHAT METAB OLIC PANEL bilirubin, total 0.4 mg/dL 0.2-1. 0 normal Not Available [address] [place], [address] 05/21/2023 18:17:38 05/21/19 24 05/21/2023 COMPR EHENS FARHAT METAB OLIC PANEL alk phos 101 U/L 46-116 normal Not Available [address] [place], [address] 05/21/2023 18:17:38 05/21/19 24 05/21/2023 COMPR EHENS FARHAT METAB OLIC PANEL sodium 139 mmol/ L 136-14 5 normal Not Available [address] [place], [address] 05/21/2023 18:17:38 05/21/19 24 05/21/2023 COMPR EHENS FARHAT METAB OLIC PANEL potassium 4.5 mmol/ L 3.5-5. 1 normal Not Available [address] [place], [address] 05/21/2023 18:17:38 05/21/19 24 05/21/2023 COMPR EHENS FARHAT METAB OLIC PANEL chloride 105 mmol/ L 98-107 normal Not Available [address] [place], [address] 05/21/2023 18:17:38 05/21/19 24 05/21/2023 COMPR EHENS FARHAT METAB OLIC PANEL CO2 20.7 mmol/ L 21.0-3 2.0 low Not Available [address] [place], [address] 05/21/2023 18:17:38 05/21/19 24 05/21/2023 COMPR EHENS FARHAT METAB OLIC PANEL anion gap 13.3 mmol/ L 3-11 high Not Available [address] [place], [address] 05/21/2023 18:17:38 05/21/19 24 05/21/2023 COMPR EHENS FARHAT METAB OLIC PANEL AST 19 U/L 15-37 normal Not Available [address] [place], [address] 05/21/2023 18:17:38 05/21/19 24 05/21/2023 COMPR EHENS FARHAT METAB OLIC PANEL ALT 29 U/L 14-59 normal Not Available [address] [place], [address] 05/21/2023 18:17:38 05/21/19 24 05/21/2023 C-JAMAAL CTIVE PROTE IN C-reactive protein 5.85 mg/dL <or=0. 5 high Not Available [address] [place], [address] 05/21/2023 18:17:39 05/23/19 24 05/23/2023 COMPL ETE BLOOD COUNT W/DIF F WBC 16.70 10_3/ uL 4.4-10 .8 high Not Available [address] [place], [address] 05/23/2023 07:10:01 05/23/19 24 05/23/2023 COMPL ETE BLOOD COUNT W/DIF F RBC 3.88 10_6/ uL 3.93-5 .22 low Not Available [address] [place], [address] 05/23/2023 07:10:01 05/23/19 24 05/23/2023 COMPL ETE BLOOD COUNT W/DIF F HGB 12.0 g/dL 11.2-1 5.7 normal Not Available [address] [place], [address] 05/23/2023 07:10:01 05/23/19 24 05/23/2023 COMPL ETE BLOOD COUNT W/DIF F HCT 37.0 % 36.0-4 6.0 normal Not Available [address] [place], [address] 05/23/2023 07:10:01 05/23/19 24 05/23/2023 COMPL ETE BLOOD COUNT W/DIF F MCV 95 fL 80-95 normal Not Available [address] [place], [address] 05/23/2023 07:10:01 05/23/19 24 05/23/2023 COMPL ETE BLOOD COUNT W/DIF F MCH 30.9 pg 27.0-3 3.0 normal Not Available [address] [place], [address] 05/23/2023 07:10:01 05/23/19 24 05/23/2023 COMPL ETE BLOOD COUNT W/DIF F MCHC 32.4 % 32.0-3 6.0 normal Not Available [address] [place], [address] 05/23/2023 07:10:01 05/23/19 24 05/23/2023 COMPL ETE BLOOD COUNT W/DIF F RDW 13.2 % 11.7-1 4.6 normal Not Available [address] [place], [address] 05/23/2023 07:10:01 05/23/19 24 05/23/2023 COMPL ETE BLOOD COUNT W/DIF F platelet count 370 10_3/ uL 130-40 0 normal Not Available [address] [place], [address] 05/23/2023 07:10:01 05/23/19 24 05/23/2023 COMPL ETE BLOOD COUNT W/DIF F MPV 9.3 fL 8.0-11 .0 normal Not Available [address] [place], [address] 05/23/2023 07:10:01 05/23/19 24 05/23/2023 COMPL ETE BLOOD COUNT W/DIF F neutrophils % 81.8 Not Available [address] [place], [address] 05/23/2023 07:10:01 05/23/19 24 05/23/2023 COMPL ETE BLOOD COUNT W/DIF F lymphocytes % 8.8 Not Available [address] [place], [address] 05/23/2023 07:10:01 05/23/19 24 05/23/2023 COMPL ETE BLOOD COUNT W/DIF F monocytes % 7.2 Not Available [address] [place], [address] 05/23/2023 07:10:01 05/23/19 24 05/23/2023 COMPL ETE BLOOD COUNT W/DIF F eosinophils % 0.0 Not Available [address] [place], [address] 05/23/2023 07:10:01 05/23/19 24 05/23/2023 COMPL ETE BLOOD COUNT W/DIF F basophils % 0.2 Not Available [address] [place], [address] 05/23/2023 07:10:01 05/23/19 24 05/23/2023 COMPL ETE BLOOD COUNT W/DIF F immature grans % 2.0 Not Available [address] [place], [address] 05/23/2023 07:10:01 05/23/19 24 05/23/2023 COMPL ETE BLOOD COUNT W/DIF F nucleated RBC 0.0 % 0.0-0. 3 normal Not Available [address] [place], [address] 05/23/2023 07:10:01 05/23/19 24 05/23/2023 COMPL ETE BLOOD COUNT W/DIF F absolute neutrophil count 13.66 10_3/ uL 1.2-6. 7 high Not Available [address] [place], [address] 05/23/2023 07:10:01 05/23/19 24 05/23/2023 COMPL ETE BLOOD COUNT W/DIF F absolute lymphocyte count 1.47 10_3/ uL 1.2-3. 4 normal Not Available [address] [place], [address] 05/23/2023 07:10:01 05/23/19 24 05/23/2023 COMPL ETE BLOOD COUNT W/DIF F absolute monocyte count 1.20 10_3/ uL 0.1-0. 8 high Not Available [address] [place], [address] 05/23/2023 07:10:01 05/23/19 24 05/23/2023 COMPL ETE BLOOD COUNT W/DIF F absolute eosinophil count 0.00 10_3/ uL 0.0-0. 7 normal Not Available [address] [place], [address] 05/23/2023 07:10:01 05/23/19 24 05/23/2023 COMPL ETE BLOOD COUNT W/DIF F absolute basophil count 0.03 10_3/ uL 0.0-0. 2 normal Not Available [address] [place], [address] 05/23/2023 07:10:01 05/24/19 24 05/24/2023 PROTH ROMBI N TIME prothrombin time 10.1 sec 9.1-11 .1 normal Not Available [address] [place], [address] 05/25/2023 10:20:22 05/24/19 24 05/24/2023 PROTH ROMBI N TIME INR 1.0 0.9-1. 1 normal Not Available [address] [place], [address] 05/25/2023 10:20:22 05/24/19 24 05/24/2023 PTT ACTIV ATED PTT activated 29.5 sec 23.6-3 2.8 normal Not Available [address] [place], [address] 05/25/2023 10:20:23 05/24/19 24 05/24/2023 COMPL ETE BLOOD COUNT W/DIF F WBC 15.70 10_3/ uL 4.4-10 .8 high Not Available [address] [place], [address] 05/25/2023 10:20:25 05/24/19 24 05/24/2023 COMPL ETE BLOOD COUNT W/DIF F RBC 3.91 10_6/ uL 3.93-5 .22 low Not Available [address] [place], [address] 05/25/2023 10:20:25 05/24/19 24 05/24/2023 COMPL ETE BLOOD COUNT W/DIF F HGB 12.0 g/dL 11.2-1 5.7 normal Not Available [address] [place], [address] 05/25/2023 10:20:25 05/24/19 24 05/24/2023 COMPL ETE BLOOD COUNT W/DIF F HCT 37.1 % 36.0-4 6.0 normal Not Available [address] [place], [address] 05/25/2023 10:20:25 05/24/19 24 05/24/2023 COMPL ETE BLOOD COUNT W/DIF F MCV 95 fL 80-95 normal Not Available [facility] [address] [place], [address] 05/25/2023 10:20:25 05/24/19 24 05/24/2023 COMPL ETE BLOOD COUNT W/DIF F MCH 30.7 pg 27.0-3 3.0 normal Not Available [address] [place], [address] 05/25/2023 10:20:25 05/24/19 24 05/24/2023 COMPL ETE BLOOD COUNT W/DIF F MCHC 32.3 % 32.0-3 6.0 normal Not Available [address] [place], [address] 05/25/2023 10:20:25 05/24/19 24 05/24/2023 COMPL ETE BLOOD COUNT W/DIF F RDW 13.3 % 11.7-1 4.6 normal Not Available [address] [place], [address] 05/25/2023 10:20:25 05/24/19 24 05/24/2023 COMPL ETE BLOOD COUNT W/DIF F platelet count 366 10_3/ uL 130-40 0 normal Not Available [address] [place], [address] 05/25/2023 10:20:25 05/24/19 24 05/24/2023 COMPL ETE BLOOD COUNT W/DIF F MPV 9.3 fL 8.0-11 .0 normal Not Available [address] [place], [address] 05/25/2023 10:20:25 05/24/19 24 05/24/2023 COMPL ETE BLOOD COUNT W/DIF F neutrophils % 74.9 Not Available [address] [place], [address] 05/25/2023 10:20:25 05/24/19 24 05/24/2023 COMPL ETE BLOOD COUNT W/DIF F lymphocytes % 11.5 Not Available [address] [place], [address] 05/25/2023 10:20:25 05/24/19 24 05/24/2023 COMPL ETE BLOOD COUNT W/DIF F monocytes % 9.0 Not Available Raj [email or web address] [place], [address] 05/25/2023 10:20:25 05/24/19 24 05/24/2023 COMPL ETE BLOOD COUNT W/DIF F eosinophils % 0.1 Not Available [address] [place], [address] 05/25/2023 10:20:25 05/24/19 24 05/24/2023 COMPL ETE BLOOD COUNT W/DIF F basophils % 0.3 Not Available Raj [email or web address] [address], [address] 05/25/2023 10:20:25 05/24/19 24 05/24/2023 COMPL ETE BLOOD COUNT W/DIF F immature grans % 4.2 Not Available [address] [place], [address] 05/25/2023 10:20:25 05/24/19 24 05/24/2023 COMPL ETE BLOOD COUNT W/DIF F nucleated RBC 0.0 % 0.0-0. 3 normal Not Available [address] [place], [address] 05/25/2023 10:20:25 05/24/19 24 05/24/2023 COMPL ETE BLOOD COUNT W/DIF F absolute neutrophil count 11.76 10_3/ uL 1.2-6. 7 high Not Available [address] [place], [address] 05/25/2023 10:20:25 05/24/19 24 05/24/2023 COMPL ETE BLOOD COUNT W/DIF F absolute lymphocyte count 1.81 10_3/ uL 1.2-3. 4 normal Not Available [address] [place], [address] 05/25/2023 10:20:25 05/24/19 24 05/24/2023 COMPL ETE BLOOD COUNT W/DIF F absolute monocyte count 1.41 10_3/ uL 0.1-0. 8 high Not Available [address] [place], [address] 05/25/2023 10:20:25 05/24/19 24 05/24/2023 COMPL ETE BLOOD COUNT W/DIF F absolute eosinophil count 0.02 10_3/ uL 0.0-0. 7 normal Not Available [address] [place], [address] 05/25/2023 10:20:25 05/24/19 24 05/24/2023 COMPL ETE BLOOD COUNT W/DIF F absolute basophil count 0.05 10_3/ uL 0.0-0. 2 normal Not Available [address] [place], [address] 05/25/2023 10:20:25 05/24/19 24 05/24/2023 COMPL ETE BLOOD COUNT W/DIF F diff comment Diff Review ed Not Available [address] [place], [address] 05/25/2023 10:20:25 05/24/19 24 05/24/2023 COMPL ETE BLOOD COUNT W/DIF F RBC morphology Normal Not Available [address] [place], [address] 05/25/2023 10:20:25 05/24/19 24 05/24/2023 LASIC METAB OLIC PANEL calcium 8.9 mg/dL 8.5-10 .1 normal Not Available [address] [place], [address] 05/25/2023 10:20:28 05/24/19 24 05/24/2023 LASIC METAB OLIC PANEL glucose 196 mg/dL 74-106 high Not Available [address] [place], [address] 05/25/2023 10:20:28 05/24/19 24 05/24/2023 LASIC METAB OLIC PANEL BUN 53 mg/dL 7-18 high Not Available [address] [place], [address] 05/25/2023 10:20:28 05/24/19 24 05/24/2023 LASIC METAB OLIC PANEL creatinine 2.0 mg/dL 0.55-1 .02 high Not Available [address] [place], [address] 05/25/2023 10:20:28 05/24/19 24 05/24/2023 LASIC METAB OLIC PANEL estimated GFR 28.25 mL/min /1.73m 2 Not Available [address] [place], [address] 05/25/2023 10:20:28 05/24/19 24 05/24/2023 LASIC METAB OLIC PANEL sodium 139 mmol/ L 136-14 5 normal Not Available [address] [place], [address] 05/25/2023 10:20:28 05/24/19 24 05/24/2023 LASIC METAB OLIC PANEL potassium 5.4 mmol/ L 3.5-5. 1 high Not Available [address] [place], [address] 05/25/2023 10:20:28 05/24/19 24 05/24/2023 LASIC METAB OLIC PANEL chloride 105 mmol/ L 98-107 normal Not Available [address] [place], [address] 05/25/2023 10:20:28 05/24/19 24 05/24/2023 LASIC METAB OLIC PANEL CO2 23.9 mmol/ L 21.0-3 2.0 normal Not Available [address] [place], [address] 05/25/2023 10:20:28 05/24/19 24 05/24/2023 LASIC METAB OLIC PANEL anion gap 10.1 mmol/ L 3-11 normal Not Available [address] [place], [address] 05/25/2023 10:20:28 05/24/19 24 05/24/2023 MAGNE SIUM magnesium 2.9 mg/dL 1.8-2. 4 high Not Available [address] [place], [address] 05/25/2023 10:20:28 05/24/19 24 05/24/2023 LASIC METAB OLIC PANEL glucose 144 mg/dL 74-106 high Not Available [facility] [address] [place], [address] 05/25/2023 10:21:43 05/24/19 24 05/24/2023 LASIC METAB OLIC PANEL BUN 52 mg/dL 7-18 high Not Available [facility] [address] [place], [address] 05/25/2023 10:21:43 05/24/19 24 05/24/2023 LASIC METAB OLIC PANEL creatinine 1.9 mg/dL 0.55-1 .02 high Not Available [address] [place], [address] 05/25/2023 10:21:43 05/24/19 24 05/24/2023 LASIC METAB OLIC PANEL estimated GFR 30.04 mL/min /1.73m 2 Not Available [address] [place], [address] 05/25/2023 10:21:43 05/24/19 24 05/24/2023 LASIC METAB OLIC PANEL sodium 139 mmol/ L 136-14 5 normal Not Available [address] [place], [address] 05/25/2023 10:21:43 05/24/19 24 05/24/2023 LASIC METAB OLIC PANEL potassium 5.5 mmol/ L 3.5-5. 1 high Not Available [address] [place], [address] 05/25/2023 10:21:43 05/24/19 24 05/24/2023 LASIC METAB OLIC PANEL chloride 103 mmol/ L 98-107 normal Not Available [address] [place], [address] 05/25/2023 10:21:43 05/24/19 24 05/24/2023 LASIC METAB OLIC PANEL CO2 26.6 mmol/ L 21.0-3 2.0 normal Not Available [address] [place], [address] 05/25/2023 10:21:43 05/24/19 24 05/24/2023 LASIC METAB OLIC PANEL anion gap 9.4 mmol/ L 3-11 normal Not Available [address] [place], [address] 05/25/2023 10:21:43 05/24/19 24 05/24/2023 LASIC METAB OLIC PANEL calcium 9.1 mg/dL 8.5-10 .1 normal Not Available [address] [place], [address] 05/25/2023 10:21:45 05/24/19 24 05/24/2023 LASIC METAB OLIC PANEL glucose 144 mg/dL 74-106 high Not Available [address] [place], [address] 05/25/2023 10:21:45 05/24/19 24 05/24/2023 LASIC METAB OLIC PANEL BUN 52 mg/dL 7-18 high Not Available [address] [place], [address] 05/25/2023 10:21:45 05/24/19 24 05/24/2023 LASIC METAB OLIC PANEL creatinine 1.9 mg/dL 0.55-1 .02 high Not Available [address] [place], [address] 05/25/2023 10:21:45 05/24/19 24 05/24/2023 LASIC METAB OLIC PANEL estimated GFR 30.04 mL/min /1.73m 2 Not Available [address] [place], [address] 05/25/2023 10:21:45 05/24/19 24 05/24/2023 LASIC METAB OLIC PANEL sodium 139 mmol/ L 136-14 5 normal Not Available [address] [place], [address] 05/25/2023 10:21:45 05/24/19 24 05/24/2023 LASIC METAB OLIC PANEL potassium 5.5 mmol/ L 3.5-5. 1 high Not Available [address] [place], [address] 05/25/2023 10:21:45 05/24/19 24 05/24/2023 LASIC METAB OLIC PANEL chloride 103 mmol/ L 98-107 normal Not Available [address] [place], [address] 05/25/2023 10:21:45 05/24/19 24 05/24/2023 LASIC METAB OLIC PANEL CO2 26.6 mmol/ L 21.0-3 2.0 normal Not Available [address] [place], [address] 05/25/2023 10:21:45 05/24/19 24 05/24/2023 LASIC METAB OLIC PANEL anion gap 9.4 mmol/ L 3-11 normal Not Available [address] [place], [address] 05/25/2023 10:21:45 05/24/19 24 05/24/2023 POTAS SIUM potassium 5.1 mmol/ L 3.5-5. 1 normal Not Available [address] [place], [address] 05/25/2023 10:25:47 05/25/19 24 05/25/2023 LASIC METAB OLIC PANEL calcium 8.2 mg/dL 8.5-10 .1 low Not Available [address] [place], [address] 05/25/2023 10:25:52 05/25/19 24 05/25/2023 LASIC METAB OLIC PANEL glucose 163 mg/dL 74-106 high Not Available [address] [place], [address] 05/25/2023 10:25:52 05/25/19 24 05/25/2023 LASIC METAB OLIC PANEL BUN 56 mg/dL 7-18 high Not Available [address] [place], [address] 05/25/2023 10:25:52 05/25/19 24 05/25/2023 LASIC METAB OLIC PANEL creatinine 1.8 mg/dL 0.55-1 .02 high Not Available [address] [place], [address] 05/25/2023 10:25:52 05/25/19 24 05/25/2023 LASIC METAB OLIC PANEL estimated GFR 32.06 mL/min /1.73m 2 Not Available [address] [place], [address] 05/25/2023 10:25:52 05/25/19 24 05/25/2023 LASIC METAB OLIC PANEL sodium 142 mmol/ L 136-14 5 normal Not Available [address] [place], [address] 05/25/2023 10:25:52 05/25/19 24 05/25/2023 LASIC METAB OLIC PANEL potassium 5.1 mmol/ L 3.5-5. 1 normal Not Available [address] [place], [address] 05/25/2023 10:25:52 05/25/19 24 05/25/2023 LASIC METAB OLIC PANEL chloride 105 mmol/ L 98-107 normal Not Available [address] [place], [address] 05/25/2023 10:25:52 05/25/19 24 05/25/2023 LASIC METAB OLIC PANEL CO2 27.8 mmol/ L 21.0-3 2.0 normal Not Available [address] [place], [address] 05/25/2023 10:25:52 05/25/19 24 05/25/2023 LASIC METAB OLIC PANEL anion gap 9.2 mmol/ L 3-11 normal Not Available [address] [place], [address] 05/25/2023 10:25:52 05/25/19 24 05/25/2023 MAGNE SIUM magnesium 2.8 mg/dL 1.8-2. 4 high Not Available [address] [place], [address] 05/25/2023 10:25:53 05/25/19 24 05/25/2023 COMPL ETE BLOOD COUNT W/DIF F WBC 14.99 10_3/ uL 4.4-10 .8 high Not Available [address] [place], [address] 05/25/2023 10:26:19 05/25/19 24 05/25/2023 COMPL ETE BLOOD COUNT W/DIF F RBC 4.08 10_6/ uL 3.93-5 .22 normal Not Available [address] [place], [address] 05/25/2023 10:26:19 05/25/19 24 05/25/2023 COMPL ETE BLOOD COUNT W/DIF F HGB 12.4 g/dL 11.2-1 5.7 normal Not Available [address] [place], [address] 05/25/2023 10:26:19 05/25/19 24 05/25/2023 COMPL ETE BLOOD COUNT W/DIF F HCT 38.5 % 36.0-4 6.0 normal Not Available [address] [place], [address] 05/25/2023 10:26:19 05/25/19 24 05/25/2023 COMPL ETE BLOOD COUNT W/DIF F MCV 94 fL 80-95 normal Not Available [address] [place], [address] 05/25/2023 10:26:19 05/25/19 24 05/25/2023 COMPL ETE BLOOD COUNT W/DIF F MCH 30.4 pg 27.0-3 3.0 normal Not Available [address] [place], [address] 05/25/2023 10:26:19 05/25/19 24 05/25/2023 COMPL ETE BLOOD COUNT W/DIF F MCHC 32.2 % 32.0-3 6.0 normal Not Available [address] [place], [address] 05/25/2023 10:26:19 05/25/19 24 05/25/2023 COMPL ETE BLOOD COUNT W/DIF F RDW 13.6 % 11.7-1 4.6 normal Not Available [address] [place], [address] 05/25/2023 10:26:19 05/25/19 24 05/25/2023 COMPL ETE BLOOD COUNT W/DIF F platelet count 375 10_3/ uL 130-40 0 normal Not Available [address] [place], [address] 05/25/2023 10:26:19 05/25/19 24 05/25/2023 COMPL ETE BLOOD COUNT W/DIF F MPV 8.9 fL 8.0-11 .0 normal Not Available [address] [place], [address] 05/25/2023 10:26:19 05/25/19 24 05/25/2023 COMPL ETE BLOOD COUNT W/DIF F neutrophils % 66.0 Not Available [address] [place], [address] 05/25/2023 10:26:19 05/25/19 24 05/25/2023 COMPL ETE BLOOD COUNT W/DIF F lymphocytes % 23.0 Not Available [address] [place], [address] 05/25/2023 10:26:19 05/25/19 24 05/25/2023 COMPL ETE BLOOD COUNT W/DIF F monocytes % 9.0 Not Available [address] [place], [address] 05/25/2023 10:26:19 05/25/19 24 05/25/2023 COMPL ETE BLOOD COUNT W/DIF F eosinophils % 0.0 Not Available [address] [place], [address] 05/25/2023 10:26:19 05/25/19 24 05/25/2023 COMPL ETE BLOOD COUNT W/DIF F basophils % 0.0 Not Available [address] [place], [address] 05/25/2023 10:26:19 05/25/19 24 05/25/2023 COMPL ETE BLOOD COUNT W/DIF F nucleated RBC 0.0 % 0.0-0. 3 normal Not Available [address] [place], [address] 05/25/2023 10:26:19 05/25/19 24 05/25/2023 COMPL ETE BLOOD COUNT W/DIF F metamyelocyt es % 2 Not Available [address] [place], [address] 05/25/2023 10:26:19 05/25/19 24 05/25/2023 COMPL ETE BLOOD COUNT W/DIF F absolute neutrophil count 9.89 10_3/ uL 1.2-6. 7 high Not Available [address] [place], [address] 05/25/2023 10:26:19 05/25/19 24 05/25/2023 COMPL ETE BLOOD COUNT W/DIF F absolute lymphocyte count 3.45 10_3/ uL 1.2-3. 4 high Not Available [address] [place], [address] 05/25/2023 10:26:19 05/25/19 24 05/25/2023 COMPL ETE BLOOD COUNT W/DIF F absolute monocyte count 1.35 10_3/ uL 0.1-0. 8 high Not Available [address] [place], [address] 05/25/2023 10:26:19 05/25/19 24 05/25/2023 COMPL ETE BLOOD COUNT W/DIF F absolute eosinophil count 0.00 10_3/ uL 0.0-0. 7 normal Not Available [address] [place], [address] 05/25/2023 10:26:19 05/25/19 24 05/25/2023 COMPL ETE BLOOD COUNT W/DIF F absolute basophil count 0.00 10_3/ uL 0.0-0. 2 normal Not Available [address] [place], [address] 05/25/2023 10:26:19 05/25/19 24 05/25/2023 COMPL ETE BLOOD COUNT W/DIF F diff comment Manual Differ ential Not Available [address] [place], [address] 05/25/2023 10:26:19 05/25/19 24 05/25/2023 COMPL ETE BLOOD COUNT W/DIF F RBC morphology See Below Not Available [address] [place], [address] 05/25/2023 10:26:19 05/25/19 24 05/25/2023 COMPL ETE BLOOD COUNT W/DIF F anisocytosis 1+ Not Available Nor [address] [place], [address] 05/25/2023 10:26:19 05/25/19 24 05/25/2023 COMPL ETE BLOOD COUNT W/DIF F polychromasi a Presen t Not Available [address] [place], [address] 05/25/2023 10:26:19 09/07/19 24 09/07/2023 BASIC METAB OLIC PANEL calcium 9.3 mg/dL 8.5-10 .1 normal Not Available [facility] (Registration ) [address] [place] [address] [place], [address], 09/07/2023 19:27:43 09/07/19 24 09/07/2023 BASIC METAB OLIC PANEL glucose 98 mg/dL 74-106 normal Not Available [facility] (Registration ) [address] [place] [address] [place], [address], 09/07/2023 19:27:43 09/07/19 24 09/07/2023 BASIC METAB OLIC PANEL BUN 41 mg/dL 7-18 high Not Available [facility] (Registration ) [address] [place] [address] [place], [address], 09/07/2023 19:27:43 09/07/19 24 09/07/2023 BASIC METAB OLIC PANEL creatinine 2.1 mg/dL 0.55-1 .02 high Not Available [facility] (Registration ) [address] [place] [address] [place], [address], 09/07/2023 19:27:43 09/07/19 24 09/07/2023 BASIC METAB OLIC PANEL estimated GFR 26.48 mL/min /1.73m 2 Not Available [facility] (Registration ) [address] [place] [address] [place], [address], 09/07/2023 19:27:43 09/07/19 24 09/07/2023 BASIC METAB OLIC PANEL sodium 141 mmol/ L 136-14 5 normal Not Available [facility] (Registration ) [address] [place] [address] [place], [address], 09/07/2023 19:27:43 09/07/19 24 09/07/2023 BASIC METAB OLIC PANEL potassium 4.6 mmol/ L 3.5-5. 1 normal Not Available [facility] (Registration ) [address] [place] [address] [facility] [place], [address], 09/07/2023 19:27:43 09/07/19 24 09/07/2023 BASIC METAB OLIC PANEL chloride 104 mmol/ L 98-107 normal Not Available [facility] (Registration ) [address] [place] [address] [place], [address], 09/07/2023 19:27:43 09/07/19 24 09/07/2023 BASIC METAB OLIC PANEL CO2 26.5 mmol/ L 21.0-3 2.0 normal Not Available [facility] (Registration ) [address] [place] [address] [facility] [place], [address], 09/07/2023 19:27:43 09/07/19 24 09/07/2023 BASIC METAB OLIC PANEL anion gap 10.5 mmol/ L 3-11 normal Not Available [facility] (Registration ) [address] [place] [address] [place], [address], 09/07/2023 19:27:43 09/07/19 24 09/07/2023 MAGNE SIUM magnesium 2.1 mg/dL 1.8-2. 4 normal Not Available [facility] (Registration ) [address] [place] [address] [place], [address], 09/07/2023 19:27:43 05/18/19 24 05/18/2023 CT, thora cic spine , w/o contr ast Patien t Name: Tosin Palacio Unit #: [id number] Loc: ER Orderi ng Provid er: Nel Perdomo i, M.D. Accoun t #: [id number] Status : REG ER Primar y [facility] er: Trinh Coates M.D. Date of Exam: Sex: F : 1965 Age: 57 Exam(s ) a CT:CT thorac ic lumbar spine wo Exam(s ) CT THORAC IC LUMBAR SPINE WO EXAM: CT THORAC IC LUMBAR SPINE WO CLINIC AL HISTOR Y: back pain. TECHNI QUE: Imagin g Protoc ol: Axial, bartholomew l and sagitt al images were recons tructe d utiliz ing bone and soft tissue algori thm. COMPAR ANGELINA: CT RENAL COLIC WO CONTRA ST from [address] CHEST W from 2019 FINDIN GS: THORAC IC SPINE: Bones: No fractu res are seen. The alignm ent of the spine is normal includ ing the cervic othora cic juncti on. There are endpla te osteop hytes which projec t anteri sj. No encroa chment into the centra l canal are neural forame n. Mild facet joint degene rative change s. Soft tissue s: The soft tissue s of the chest are unrema rkable . No large disk hernia tions are identi fied. No acute pulmon inocencio abnorm ality. Tiny hiatal hernia . LUMBAR SPINE: No fractu re is identi fied. Degene rative disc change s and facet degene rative change s are presen t. Soft tissue s: There is no large disc hernia tion. Mild disc bulgin g at L2-3. Narrow ing of the L3-4 disc space eccent obdulia toward the right with endpla te osteop hytes. Minima l disc bulgin g. Right neural forami nal narrow ing. No parasp inal hemato ma. Mild disc bulgin g at L4-5. Facet degene rative change s and ligame ntous hypert rophy combin e to produc e mild centra l canal stenos is. Mild disc bulgin g at L5-S1. Mild bilate ral neural forami nal narrow ing. 6 millim eter nonobs tructi ng stone upper pole left kidney . Additi onal smalle r stone inferi sj. IMPRES KENRDA: No acute abnorm ality of the thorac ic or lumbar spine. Degene rative change s as above. RADIAT ION DOSE DELIVE RED: Total DLP DATA REPOSI TORY: All CT scans at this facili ty are submit jaycob to the Nation al Radiol ogy Data Regist ry (NRDR) Dose Index Regist ry (DIR) with the [place] j[place] am[place] of Radiol ogy (ACR). RADIAT ION OPTIMI ZATION : All CT scans at this facili ty use at least one of these dose optimi zation techni ques: automa jaycob exposu re contro l; mA and/or kV adjust ment per patien t size (inclu dione target ed exams where dose is matche d to clinic al indica tion); or iterat farhat recons tructi on. 0329-0 013: Total DLP = 0.00 mGy-cm Ordere d By: Nel Perdomo i, M.D. CC: ------ ------ ------ ------ ------ ------ ------ ------ ------ ------ ------ ------ ---- Dictat ed By: Gorge York 958 Transc ribed By: Chapo Katz 59 This is privil eged, confid ential inform ation intend ed only for the provid er named. Any use or distri bution by any person other than this provid er is strict ly prohib ited. If you receiv e this report in error, please notify us immedi locoly at and return the origin al report to us at the addres s above. Thank- you. [facility] [address], [place], [address] 06/07/2023 19:50:15 05/18/19 24 05/18/2023 CT, pelvi s, w/o contr ast Patien t Name: Tosin Palacio Unit #: [id number] Loc: ER Orderi ng Provid er: Nel Perdomo i, M.D. Accoun t #: [id number] Status : REG ER Primar y Care Provid er: Trinh Coates M.D. Date of Exam: Sex: F : 1965 Age: 57 Exam(s ) a CT:CT pelvis wo Exam(s ) CT PELVIC WO EXAM: CT PELVIC WO CLINIC AL HISTOR Y: back pain fall hip pain. TECHNI QUE: Imagin g Protoc ol: Axial comput ed tomogr aphy images with bartholomew irma and sagitt al reform atted images were create d and review ed. AISHWARYA MEEHAN MATERI AL: Oral: / no COMPAR ANGELINA: CT RENAL COLIC WO CONTRA ST from 2016 FINDIN GS: Bladde r: Symmet obdulia disten tion, no gross wall thicke jaye. Bowel: No obstru ction or bowel wall thicke jaye. Modera te quanti ty of stool. Perito slava cavity : No ascite s, collec tion or mesent marisela inflam matory respon se. Reprod uctive : Unrema rkable . Bones: No fractu re. No signif icant degene rative change s of the hips. SI joints and pubic symphy sis are unrema rkable . No lytic or blasti c lesion s. Soft tissue s: Surgic al clips in anteri or abdomi nal wall. No eviden ce of recurr ence hernia . IMPRES KENDRA: No acute abnorm ality. RADIAT ION DOSE DELIVE RED: Total DLP DATA REPOSI TORY: All CT scans at this facili ty are submit jaycob to the [facility] al Radiol ogy Data Regist ry (NRDR) Dose Index Regist ry (DIR) with the [place] am[place] of Radiol ogy (ACR). RADIAT ION OPTIMI ZATION : All CT scans at this facili ty use at least one of these dose optimi zation techni ques: automa jaycob exposu re contro l; mA and/or kV adjust ment per patien t size (inclu dione target ed exams where dose is matche d to clinic al indica tion); or iterat farhat recons tructi on. 0329-0 014: Total DLP = 0.00 mGy-cm Ordere d By: Nel Perdomo i, M.D. CC: ------ ------ ------ ------ ------ ------ ------ ------ ------ ------ ------ ------ ---- Dictat ed By: Gorge York 1001 1001 Transc ribed By: Chapo Katz 1001 This is privil eged, confid ential inform ation intend ed only for the provid er named. Any use or distri bution by any person other than this provid er is strict ly prohib ited. If you receiv e this report in error, please notify us immedi ately at and return the origin al report to us at the addres s above. Thank- you. [facility] [address], [place], [address] 06/07/2023 19:47:38 05/21/19 24 05/21/2023 MRI, lumba r spine , w/wo contr ast Patien t Name: Tosin Palacio Unit #: [id number] Loc: Orderi ng Provid er: Mariposa Aj M.D. Accoun t #: [id number] Status : ADM DEBI Primar y Care Provid er: Trinh Coates M.D. Date of Exam: 03/14 Sex: F Admiss ion Date: : 1965 Age: 57 Exam(s ) MR LUMBAR SPINE WO/W EXAM: MR LUMBAR SPINE WO/W CLINIC AL HISTOR Y: acute back pain, r/o discit is. TECHNI QUE: Multip lanar multis equenc e MRI of the Lumbar Spine was perfor med. CONTRA ST MATERI AL: IV Contra st: 17 mL of Dotare m contra st admini stered . COMPAR ANGELINA: CT RENAL COLIC WO CONTRA ST from [address] THORAC IC LUMBAR SPINE WO from 2023 FINDIN GS: Bones: The last interv ertebr al disc space is design ated the L5/S1 level for the number ing purpos e of this examin ation. The verteb ral body height s are well mainta ined. Alignm ent is satisf actory . There is hyperi ntense signal seen on the T2 weight ed images in the L3-L4 disc space. Also at this level mild degene rative endpla te signal change s are seen. There is also mild diffus e disc bulge. There is loss of height of the disc space at this level. The irregu larity of the inferi or cortex of L3 is unchan ged dating back to the CT scan from 2016. There are degene rative change s of the facets seen at L4-L5. Cord: The conus tip ends at the T12 level. It is of normal size and signal intens ity. T12-L1 : No disc hernia tions or bulges are presen t. No centra l spinal canal or neural forami nal stenos is. L1-2: No disc hernia tions or bulges are presen t. No centra l spinal canal or neural forami nal stenos is. L2-3: No disc hernia tions or bulges are presen t. No centra l spinal canal or neural forami nal stenos is. L3-4: There is a mild diffus e disc bulge. No signif icant centra l spinal canal stenos is is seen. No abnorm al fluid collec tion is seen in the adjace nt soft tissue s. Mild bilate ral neural forami nal stenos is is seen, right greate r than left. L4-5: Facet. No signif icant centra l spinal canal stenos is is seen. No right neural forami nal stenos is. There is mild-t o-mode rate left neural forami nal stenos is. L5-S1: No disc hernia tions or bulges are presen t. There are degene rative change s of the facets , left greate r than right. No signif icant centra l spinal canal stenos is is seen. There is no right neural forami nal stenos is. There is mild narrow ing of the left neural forame n. Soft tissue s: The visual ized SI joints and sacrum are well mainta ined. Bilate ral simple renal cysts are seen. No follow -up is recomm ended. There is a 1 x 0.7 cm periph erally enhanc ing fluid collec tion in the parasp inal soft tissue s chucking lathe operator ior to the left L5-S1 facet joint. (Serie s 11464 image 13). This may repres ent a synovi al cyst or an absces s. There is no abnorm al enhanc ement seen in the L3-4 disc space. There is mild enhanc ement at the inferi or endpla te of L3 and the superi or endpla te of L4. This may be degene rative in nature . No enhanc ing fluid collec tion is seen in the soft tissue s adjace nt to the L3-L4 disc space. IMPRES KENDRA: 1. 1 x 0.7 cm periph erally enhanc ing fluid collec tion in the parasp inal soft tissue s chucking lathe operator ior to the left L5-S1 facet joint. This may repres ent a synovi al cyst or absces s. 2. Multil evel degene rative change s in the lumbar spine from L3-4 throug h L5-S1. No signif icant centra l spinal canal stenos is. Varyin g degree s of neural forami nal stenos is is seen. Please see the above discus kendra for level by level detail s. 3. T2 hyperi ntense signal seen in the L3-4 disc but no abnorm al enhanc ement is seen follow ing contra st admini strati on. No fluid collec tion is seen in the parasp inal soft tissue s around L3-4 to sugges t an absces s. If sympto ms persis t, a follow -up MRI of the lumbar spine should be consid ered for re-[place]. DATA REPOSI TORY: Ordere d By: Mariposa Aj M.D. CC: ------ ------ ------ ------ ------ ------ ------ ------ ------ ------ ------ ------ - Dictat ed By: Lukasz Lei M.D. 114 114 Transc ribed By: Lukasz Lei 1140 This is privil eged, confid ential inform ation intend ed only for the provid er named. Any use or distri bution by any person other than this provid er is strict ly prohib ited. If you receiv e this report in error, please notify us immedi ately at and return the origin al report to us at the addres s above. Thank- you. [facility] [address] [place], [address] 06/07/2023 19:47:15 09/04/19 24 09/04/2023 XR, knee, 3 view Patien t Name: Tosin Palacio Unit #: [id number] Loc: DIORS Orderi ng Provid er: Ksenia Nazario M.D. Accoun t #: [id number] Status : PRE CLI Primar y Care [...] Pfeiffer M.D. [id number] Transc ribed By: Kentrell RENEE,Jennifer george 1056 This is privil eged, confid ential inform ation intend ed only for the provid er named. Any use or distri bution by any person other than this provid er is strict ly prohib ited. If you receiv e this report in error, please notify us immedi alicja at [phone] and return the origin al report to us at the addres s above. Thank- you. [facility] [address] , [place], [address] 09/05/2023 08:09:45 Result Notes None recorded. Problems Name Status Onset Date Resolution Date Notes Provider Name and Address Organization Details Recorded Time Hyperlipidemi a Active 1999 on statin MD [address], [place], [address] , [facility] 4 20:39:05 Essential hypertension Active [address], [place], [address] , [facility] 4 20:37:05 Obstructive sleep apnea syndrome Active 2006 CPAP MD [address], [place], [address] , [facility] 4 20:44:49 Psoriasis Active [address], [place] [address] , [facility] 4 20:44:11 History of urinary stone Active [address], [place] [address] , [facility] 4 20:38:50 Proteinuria Active [address], [address] 4 20:43:58 Herpesvirus infection Active 2009 valtrex prn MD [address], [place] [address] , [facility] 4 15:46:17 Obesity Active [address], [place] [address] , [facility] 4 20:44:39 Attention deficit hyperactivity disorder, predominantly inattentive type Active 2012 no medications MD [address], [facility] [address] , [facility] 4 20:33:36 Exophthalmos Active [address], [place] [address] , [facility] 4 20:37:18 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 Problem Code: R13.10; Problem Code Type: ICD-10; Not Available [facility] 3 03:58:22 Adult health examination Active [address], [place], [address] , [facility] 4 10:10:24 Increased frequency of urination Completed [...] R35.0; Problem Code Type: ICD-10; Not Available [facility] 3 03:58:22 Hypokalemia Completed 201602/21/2017 Problem Code: E87.6; Problem Code Type: ICD-10; Not Available [facility] 3 03:58:22 Left side sciatica Active [address], [place], [address] , [facility] 4 20:39:31 Personal history of primary malignant neoplasm of breast Active 2017 left 02/2017: node positive, s/p BL mastectomy and adjuvant chemo MD [address], [place], [address] , [facility] 4 20:42:54 Ulceration of vulva Completed 201711/26/201711/12/2017 - Comments only - Trinh Coates MD - likely herpes. Viral culture obtained. Start VALTREX 500 mg po BID for 3 days. If culture negative and not improving, to [employer]. I told her that if it is herpes she needs to let her oncologist know prior to this weeks chemotherapy dosing. Problem Code: N76.6; Problem Code Type: ICD-10; Not Available [facility] 3 03:58:23 Prediabetes Active [address], [place], [address] , [facility] 4 20:43:02 Lymphedema Active 2018 Left arm MD [address], [place], [place], [address] [place] [address] , [facility] 4 20:40:08 Candidiasis of vagina Completed 201807/31/2018 Problem Code: B37.3; Problem Code Type: ICD-10; Not Available [facility] 3 03:58:23 Chronic kidney disease stage 3B Active [address], [place], [place], [address] [place] [address] , [facility] 4 20:36:52 Pain in left arm Completed 201903/21/2019 Problem Code: M79.602; Problem Code Type: ICD-10; Not Available [facility] 3 03:58:23 Pre-surgery evaluation Completed 201904/21/2019 04/07/2019 - Comments only - Trinh Coates MD - she is medically stable for upcoming low risk surgery. Problem Code: Z01.818; Problem Code Type: ICD-10; Not Available [facility] 3 03:58:24 Fatigue Completed 201907/18/2019 07/04/2019 - Comments only - Trinh Coates MD - will check CBC and ferritin. Continue CPAP. Try stopping atorvastatin for few weeks, call me if symptoms are better off. Problem Code: R53.83; Problem Code Type: ICD-10; Not Available [facility] 3 03:58:24 Benign paroxysmal positional vertigo Completed 201908/29/2019 Problem Code: H81.10; Problem Code Type: ICD-10; Not Available [facility] 3 03:58:24 Other idiopathic peripheral neuropathy NOS Active 2019 gabapentin MD [address], [place], [address] , [facility] 4 20:41:49 Acute bronchospasm Completed 202012/03/2020 11/19/2020 - Comments only - Trinh Coates MD - pollo woodall. Albuterol with spacer 2 puffs q 4-6 hours prn Prednisone 40 mg daily for 5 days, then 20 mg daily for 5 days. Problem Code: J98.01; Problem Code Type: ICD-10; Not Available [facility] 3 03:58:24 Acute stress disorder Completed 202106/29/2021 Problem Code: F43.0; Problem Code Type: ICD-10; Not Available [facility] 3 03:58:24 Active immunization Completed 202108/30/2021 Problem Code: Z23; Problem Code Type: ICD-10; Not Available [facility] 3 03:58:24 Dysuria Completed 202103/01/2023 11/17/2021 - [...] Code Type: ICD-10; MD [address], [place], [address] , [facility] 4 20:36:56 Family history of neurological disorder Completed 202103/01/2023 02/16/2022 - Unchanged - Trinh Coates MD - MRA brain ordered given 3 family members, including BOTH parents with brain aneurysms. Problem Code: Z82.0; Problem Code Type: ICD-10; MD [address], [place], [place], [address] [place] [address] , [facility] 4 20:37:27 Adjustment disorder Completed 202103/01/2023 02/16/2022 - Comments only - Trinh Coates MD - supportive listening Problem Code: F43.20; Problem Code Type: ICD-10; MD [address], [place] [address] , [facility] 4 20:32:51 Imaging of central nervous system abnormal Completed 202203/01/2023 Problem Code: R90.89; Problem Code Type: ICD-10; MD [address], [place] [address] , [facility] 4 20:39:23 Bilateral acquired absence of breast Active [address], [place] [address] , [facility] 4 20:33:48 Disorder of skin and/or subcutaneous tissue Completed 202008/12/2021 Problem Code: L98.9; Problem Code Type: ICD-10; Not Available [facility] 3 03:58:28 Renal function tests outside reference range Completed 201712/03/2017 Problem Code: R94.4; Problem Code Type: ICD-10; Not Available [facility] 3 03:58:29 Hypocalcemia Completed 201710/19/2017 Problem Code: E83.51; Problem Code Type: ICD-10; Not Available [facility] 3 03:58:29 Paresthesia Completed 201511/25/2015 Problem Code: R20.2; Problem Code Type: ICD-10; Not Available [facility] 3 03:58:29 Hyperkalemia Completed 201711/15/2022 Problem Code: E87.5; Problem Code Type: ICD-10; Not Available [facility] 3 03:58:30 Onychomycosis due to dermatophyte Completed 201408/09/2020 Problem Code: B35.1; Problem Code Type: ICD-10; Not Available [facility] 3 03:58:30 Fibrocystic disease of breast Completed 199908/09/2020 Problem Code: N60.19; Problem Code Type: ICD-10; Not Available [facility] 3 03:58:30 Impaired fasting glycemia Completed 200602/06/2018 Problem Code: R73.01; Problem Code Type: ICD-10; Not Available [facility] 3 03:58:30 Pain in thoracic spine Completed 201505/24/2016 Problem Code: M54.9; Problem Code Type: ICD-10; Not Available [facility] 3 03:58:31 Lump on face Completed 201505/24/2016 Not Available [facility] 3 03:58:31 Low back pain Completed 201402/03/2015 Problem Code: M54.5; Problem Code Type: ICD-10; Not Available [facility] 3 03:58:31 Pain in finger Completed 201402/03/2015 Problem Code: M79.646; Problem Code Type: ICD-10; Not Available [facility] 3 03:58:31 Personal history of primary malignant neoplasm of breast Completed 201011/15/2022 Problem Code: Z85.3; Problem Code Type: ICD-10; TRINH COATES MD [address], [place], [place], [address] , [facility] 4 20:42:54 Hypercalcemia Completed 201411/25/2015 Problem Code: E83.52; Problem Code Type: ICD-10; Not Available [facility] 3 03:58:32 Acute upper respiratory infection Completed 202001/31/2021 Problem Code: J06.9; Problem Code Type: ICD-10; Not Available [facility] 3 03:58:32 Lichen simplex chronicus Completed 201308/09/2020 Problem Code: L28.0; Problem Code Type: ICD-10; Not Available [facility] 3 03:58:32 Overweight Completed 200611/15/2022 08/12/2014 - Comments only - Trinh Coates MD - She is congratulated on her recent weight loss. Not Available [facility] 3 03:58:33 Depressive disorder Completed Not Available [facility] 3 03:58:33 Sleep apnea Completed 200611/15/2022 Not Available [facility] 3 03:58:33 Foot pain Completed 202008/12/2021 Problem Code: M79.673; Problem Code Type: ICD-10; Not Available [facility] 3 03:58:34 Exposure to communicable disease Completed 201902/02/2020 Problem Code: Z20.828; Problem Code Type: ICD-10; Not Available [facility] 3 03:58:34 Vulval and/or perineal noninflammato ry disorders Completed 201804/07/2019 Problem Code: N90.9; Problem Code Type: ICD-10; Not Available [facility] 3 03:58:34 Genital herpes simplex Completed 200911/15/2022 Problem Code: 054.10; Problem Code Type: ICD-9; Not Available [facility] 3 03:58:34 Neck pain Completed 201402/03/2015 Problem Code: M54.2; Problem Code Type: ICD-10; Not Available [facility] 3 03:58:34 Kidney stone Completed Not Available [facility] 3 03:58:35 Blood in urine Completed 201604/07/2019 Problem Code: R31.9; Problem Code Type: ICD-10; Not Available [facility] 3 03:58:35 Hyperglycemia Completed 201711/15/2022 Problem Code: R73.9; Problem Code Type: ICD-10; Not Available [facility] 3 03:58:35 Primary malignant neoplasm of female breast Completed 201711/15/2022 Problem Code: C50.919; Problem Code Type: ICD-10; Not Available [facility] 3 03:58:35 Chronic kidney disease stage 3 Completed 201811/15/2022 02/02/2020 - Comments only - Trinh Caotes MD - stable based on recent labs, continue to follow BMP and magnesium q 3 months. Not Available [facility] 3 03:58:36 Hypothyroidis m Completed 201606/12/2018 Problem Code: E03.9; Problem Code Type: ICD-10; Not Available [facility] 3 03:58:36 Gastritis Completed 201302/03/2015 Not Available [facility] 3 03:58:36 Hypokalemia Completed 201702/02/2020 Problem Code: E87.6; Problem Code Type: ICD-10; Not Available [facility] 3 03:58:37 Ingrowing nail Completed 201910/03/2019 Problem Code: L60.0; Problem Code Type: ICD-10; Not Available [facility] 3 03:58:38 Fibrocystic disease of breast Completed Problem Code: 610.1; Problem Code Type: ICD-9; Not Available [facility] 3 03:58:38 Derangement of left knee Completed 202001/31/2021 Problem Code: M23.92; Problem Code Type: ICD-10; Not Available [facility] 3 03:58:38 Screening for malignant neoplasm of cervix Completed 201804/07/2019 Problem Code: Z12.4; Problem Code Type: ICD-10; Not Available [facility] 3 03:58:39 Syncope and collapse Completed 201801/13/2019 Problem Code: R55; Problem Code Type: ICD-10; Not Available [facility] 3 03:58:39 Hypertensive disorder Completed 200611/15/2022 02/03/2015 [...] this change in her medication Not Available [facility] 3 03:58:39 Pain of right shoulder joint Completed 201901/31/2021 Problem Code: M25.511; Problem Code Type: ICD-10; Not Available [facility] 3 03:58:39 Fatigue Completed 201405/24/2016 Problem Code: R53.83; Problem Code Type: ICD-10; Not Available [facility] 3 03:58:40 Osteopenia Active 10/2021 Femoral neck T score -1.[address], [place], [address] , [facility] 4 20:36:41 Intracranial aneurysm Active 2022 s/p stenting 07/2021 [facility] neurosurgery MD [address], [place], [address] , [facility] 4 20:48:16 Dyspnea Active 202211/03/2022 - [...] R06.09; Problem Code Type: ICD-10; Not Available [facility] 4 05:36:37 Dysuria Completed 202212/13/2022 Problem Code: R30.0; Problem Code Type: ICD-10; Not Available [facility] 4 05:36:37 Acute cystitis Completed 202212/19/2022 Problem Code: N30.01; Problem Code Type: ICD-10; Not Available [facility] 4 05:36:38 Nervous system and sense organ diseases Active 202211/03/2022 - Comments only - Trinh Coates MD - relieved to have had workup and treatment and that she will have routine follow up. 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 MD [address], [place], [address] , [facility] 4 20:00:37 Problem Notes None recorded. Procedures Surgical History Date Name Laterality Status Provider Name and Address Organization Details Recorded Time 04/20/19 24 reconstruction of anterior cruciate ligament of knee joint completed ARELI MEDEIROS LPN [facility], [facility] 04/23/2023 09:11:45 04/20/19 18 Bilateral Mastectomy completed MD [address], [place], [address], [facility] 03/01/2023 20:55:27 Imaging Results Imaging Date Name Status LastModified by Organiz ation Details LastModified Time 05/18/2023 CT, thoracic spine, w/o contrast completed [facility] [address] , [place], [address] 06/07/2023 19:50:15 05/18/2023 CT, pelvis, w/o contrast completed [address] [place], [address] 06/07/2023 19:47:38 05/21/2023 MRI, lumbar spine, w/wo contrast completed [address] [place], [address] 06/07/2023 19:47:15 09/04/2023 XR, knee, 3 view completed [address] [place], [address] 09/05/2023 08:09:45 Procedure Notes None recorded. Medical Equipment None Reported. Allergies Allergen ID Allergen Name Allergen Category Reaction Reaction Severity Criticality Documentation Date Start Date Code Code System Note Provider Name and Address Organization Details Recorded Time 50116 Medicinal product containin g penicilli n and acting as antibacte rial agent (product) medicatio n other mild Not available 12/29/20222007 48190 05 SNOMED thrus h Aller gyCod e: '8340 61'; Aller gyNam e: 'PENI CILLI N'; Aller gyCon ceptT ype: 'RX Norm' ; Aller gyRea ction : 'thru sh'; Not Available [facility] 16:26:27 Medications Name Sig Start Date Stop [...] THREE TIMES A DAY NEEDED FOR SPASMS 06/07 completed Not Available Not Available Not [...] Do not exceed 3 g/day 2017 active [facility] Not Available Not Available Not Avai lable [...] cream three times a day 08/12 completed [facility] Not Available Not Available Not Available fosfomyci [...] tab PO BID with meals 02/06 completed [facility] Not Available Not Available Not Available Keflex 500 mg capsule Take 1 tab by mouth four times daily ON HOLD UNTIL MD INSTRUCT S 12/18 completed [facility] Not Available [...] completed Not Available Not Available Not Available [facility] Low Dose Aspirin 81 mg tablet,de layed [...] 1 tab by mouth daily. 06/12 completed [facility] Not Available Not Available Not Available Wellbutri [...] tablet PO Q6H PRN anxiety 02/06 completed [facility] Not Available Not Available Not Available exemestan [...] subcutane ous syringe 45mg/ML sq 2018 active [facility] Not Available Not Available Not Avai lable [...] Available TechLITE Pen Needle 32 gauge x active Not Available Not Available Not Available [...] mass index (BMI) Body weight Body temperature Respiratory rate Heart rate Systolic blood pressure Diastolic blood pressure Provider Name and Address Organization Details Last Updated DateTime 4 155.7 cm 34.8 kg/m2 69298.1 8 g 97.8 [degF] 18 /min 64 /min 120 mm[Hg] 84 mm[Hg] ARELI MEDEIROS LPN [facility] 4 15:01:27 Date Recorded Body height Body mass index (BMI) Body weight Respiratory rate Body temperature Oxygen saturation Oxygen saturation in Arterial blood by Pulse oximetry Heart rate Systolic blood pressure Diastolic blood pressure Provider Name and Address Organization Details Last Updated DateTime 4 155.7 cm 34.8 kg/m2 47565.1 8 g 18 /min 97.5 [degF] 98 % 98 % 80 /min 136 mm[Hg] 85 mm[Hg] Zully Vigil MA [facility] 4 10:17:46 Date Recorded Body height Body mass index (BMI) Body weight Body temperature Respiratory rate Systolic blood pressure Diastolic blood pressure Provider Name and Address Organization Details Last Updated DateTime 4 155.7 cm 34.1 kg/m2 77715.8 1 g 97.5 [degF] 16 /min 110 mm[Hg] 70 mm[Hg] ARELI MEDEIROS LPN [facility] 4 14:18:09 Date Recorded Body height Body mass index (BMI) Body weight Body temperature Oxygen saturation Oxygen saturation in Arterial blood by Pulse oximetry Heart rate Respiratory rate Systolic blood pressure Diastolic blood pressure Provider Name and Address Organization Details Last Updated DateTime 4 155.7 cm 33.9 kg/m2 11864.2 2 g 97.5 [degF] 96 % 96 % 82 /min 16 /min 118 mm[Hg] 80 mm[Hg] ARELI MEDEIROS LPN [facility], [facility] 4 10:03:35 Social History Question Answer Notes LastModified by Organizat ion Details LastModified Time Tobacco Smoking Status Former Smoker ARELI MEDEIROS LPN [facility], [facility] 03/02/2023 15:03:25 Would You Say That, In [...] of malignant neoplasm of ovary Notes:*Problem: Mother: Aliv e hyperlipidemia, HTN, breast cancer. 2020 new cancer [...] Recorded Time Tdap 07/01/2007 completed Not Available [facility] 05:28:47 Tdap 08/11/2020 completed Not Available [facility] 05:28:47 Td(adult) unspecified formulation 03/23/1996 completed Not Available [facility] 12/29/2022 05:28:48 zoster recombinant 08/23/[address] [facility] 12/29/2022 05:28:49 zoster recombinant 10/31/[address] [facility] 12/29/2022 05:28:49 COVID-19, mRNA, LNP-S, PF, 100 mcg/0.5mL dose or 50 mcg/0.25mL dose 05/06/2020 completed Not Available [facility] 12/30/19 05:28:49 COVID-19, mRNA, LNP-S, PF, 100 mcg/0.5mL dose or 50 mcg/0.25mL dose 06/04/2020 completed Not Available [facility] 12/30/19 05:28:49 COVID-19, mRNA, LNP-S, PF, 100 mcg/0.5mL dose or 50 mcg/0.25mL dose 08/29/2021 completed Not Available [facility] 12/30/19 05:28:49 COVID-19, mRNA, LNP-S, PF, 100 mcg/0.5mL dose or 50 mcg/0.25mL dose 01/31/2021 completed Not Available [facility] 12/30/19 05:28:49 Past Encounters Encounter ID Performer Location Encounter Start Date Encounter Closed Date Diagnosis/Indication Diagnosis SNOMED-CT Code [id number] TRINH COATES MD [place] [address] [place] [address] 03/02/2023 14:52:10 03/02/2023 16:13:17 Adult health examination 188214970 Obesity 929778380 Chronic ki dney disease stage 3B 598294453 Essential hypertension 92190528 Hyperlipidemia 39550504 Herpesvirus infection 23 830329 Insomnia 807034384 Prediabetes 411325495 Idiopathic peripheral neuropathy 66815141 Chronic depression 21634 0009 Personal h istory of primary malignant neoplasm of breast 209587162 [id number] TRINH COATES MD [facility] [address] [place] [address] 04/02/2023 08:24:15 04/02/2023 08:35:37 Chronic kidney disease stage 3B 604428210 [id number] ALENA KOENIG [address],[facility] [address] [place] [address] 06/05/2023 09:22:36 06/05/2023 11:07:04 Preseptal cellulitis 954218372 [id number] TRINH COATES MD [address] [place] [address] 06/08/2023 14:06:24 06/08/2023 14:55:06 Herpesvirus infection 55777805 Obesity 206830345 Hordeolum externum of upper eyelid of left eye 99903365355365 2 Low back p ain co-occurrent with neuralgia of right sciatic nerve 92617117079056 5 Chronic ki dney disease stage 3B 748753907 [id number] TRINH COATES MD [facility] [place] [address] 09/07/2023 09:53:16 09/07/2023 10:31:13 Chronic kidney disease stage 3B 275379434 Obesity 344439487 Health Concerns Section Related Observation LastModified by Organization Detai ls LastModified Time None Recorded Concern Status LastModified by Organization Details LastModified Time None Recorded Advance Directives Directive None Recorded Payers Encounter Date Sequence Insurance Name Policy Number Policy Arroyo Covered Member ID Arroyo Member ID Guarantor Name 03/02/2023 1 [place] [facility] [facility] [facility] [place] [facility] [place] [place] [id number] Wendy Yannick Guidosh [id number] Wendy Yannick Guidosh 04/02/2023 1 [place] [facility] [facility] [facility] [place] [facility] [place] [place] [id number] Wendy M Guidosh [id number] Wendy Yannick Guidosh 06/05/2023 1 [place] [facility] [facility] [facility] [place] [place] [id number] Wendy M Guidosh [id number] Wendy Yannick Guidosh 06/08/2023 1 [place] [facility] [place] [facility] [place] [id number] Wendy M Guidosh [id number] Wendy M Guidosh 09/07/2023 1 [facility] [place] [id number] Wendy M Guidosh [id number] Wendy Yannick Guidosh Notes Date Note Type Note Provider Name and Address Organization Details Recorded Time 03/02/2023 text/html HPI Notes: Here for Annual Exam. Interval history form was reviewed, including comprehensive ROS form- negative through except for weight change trouble falling asleep Hemorrhoids- sometimes constipated or straining. External, get irritated easily. Has TUCKS and preparation H. She postponed surgery. Left knee pain, she was working hard breaking up ice. She has a surgery scheduled with Dr. Nazario April 19 for inner meniscal. Denies chest pain, sob, HODGES and visual issues. She is off blood thinners. WOULD INSURANCE COVER GLP1 inhibitor?? Dyspnea on exertion. that has been better. Prediabetes. A1C with upcoming labs Chronic kidney disease (CKD); stage 3 bneprhology. Hypertension; benign essential has not been checking at home, good about taking meds. Hx of intracranial aneurysm (s/p stenting 07/2021). Angiogram scheduled for 12/2023. Depression- mood has been fine. Still taking the fluoxetine. Sleep apnea- using CPAP. Breast cancer- still seeing oncology q 6 months. Psoriasis- quiet on stelara. TRINH COATES MD [address], [place], [address], [facility]. 03/02/2023 16:57:00 06/05/2023 text/html HPI Notes: 4 day s ago, patient noted mild L eyelid swelling. Swelling has been worsening the last few days, with redness, with some sensitivity to touch, and yesterday, with some L eye discharge. Woke with it crusted shut with yellow mucopurulent drainage this AM, and having to frequently wipe eye. Denies vision changes or pain with eye movement. No fevers. Does report a mild headache. Denies any symptoms to R eye. Patient does wear contacts, but has not worn them for several months. Denies any recent nasal congestion, sinus pressure, rhinitis. No identifiable traumas or open wounds to the skin in this area. ALENA KOENIG [address], [place], [address], [facility]. 06/05/2023 11:29:42 06/08/2023 text/html HPI Notes: Here to follow up due to hospitalization 05/20-05/24 for intractable R LBP with sciatica. Admission and discharge notes, labs and x-rays and interventional radiology notes were all reviewed. There was a fluid filled collection noted on MRI of the lumbar spine as well as in the right psoas , she went to [facility] and IR drained both: culture: negative aerobic and anaerobic at both sites. Has been going to PT, was told that she has hypermobility syndrome. The sciatica pain is gone. She was also seen 06/04: treatment L eye mucopurulent drainage with erythromycin ointment, and Rx for cefdinir 300 mg BID (PCN allergy was adverse reaction of thrush only) for suspected L preseptal cellulitis Plan 3 months ago: Try starting phentermine 15 mg daily. After a week start topiramate 25 mg once a day for a few days, then twice a day. After 2 weeks, increase to 50 mg twice a day. the topiramate may cause metal taste. May make your numbness and tingling better or worse. She stopped as she had terrible taste in her mouth with both the combination and even with just the phentermine. HTN-She felt tired and weak on the valsartan, went back on the losartan and felt better. CKD-recent note with that turbine engine assembler reviewed MD [address], [place], [address], [facility] 06/08/2023 17:24:38 09/07/2023 text/html HPI Notes: Here for follow [...] with lifting, back has been okay. Saw marketing strategy manager, had mole removed, benign, psoriasis is stable with the stelara. MD [address], [place], [address], [facility] 09/07/2023 11:58:01 OBGyn Episode No OBEpisode recorded.
--- OUTSIDE RECORDS SUMMARY | 2023-09-25 11:40 | XMS_ITS | Encounter Summary ---
Author Organization [facility] Address [facility] [place] [address] Care Team Providers Care Printing Assistant Name Role Phone Trinh Coates MD Primary Care Provider [phone] Encounter Details Date Type Department Care Team [...] 01/22/2024 10:30 AM EST Appointment Mammography/[place] [address] Ladi Mendosa MD [facility] [address] [place] [address] 01/30/2024 11:30 AM EST Office Visit Dermatology at [facility] [address] [place] [address] Nilda Luis MD [facility] [place] [address] 02/14/2024 7:30 AM [place] [address] Joanna Watts MD [facility] [address] documented as of this encounter Visit Diagnoses Not on filedocumented in this encounter Care Teams Printing Assistant Relationship Specialty Start Date End Date Trinh Coates MD [facility] [place]AN [address] [address] [address] PCP - General 01/11/10 documented as of this encounter
--- OUTSIDE RECORDS SUMMARY | 2023-09-25 11:41 | XMS_ITS | Encounter Summary ---
Author Organization [facility] Address [facility] [place] [address] Care Team Providers Care Boat Carpenter Mechanic Name Role Phone Trinh Coates MD Primary Care Provider Reason for Visit * Reason Comments Medication Refill Encounter Details Date Type Department Care Team (Late st Contact Info) Description 01/30/2023 Refill Dermatology at [facility] [address] [place] [address] Nilda Luis MD [facility] [place] [address] Psoriasis Social History Tobacco Use Types Packs/Day [...] in June - Appropriate to refill: pending approval documented in this encounter Plan of Treatment Upcoming Encounters Date Type Department Care Team (Late st Contact Info) Description 01/22/2024 10:30 AM EST Appointment Mammography/[place] [address] Ladi Mendosa MD [facility] [place] [address] 01/30/2024 11:30 AM EST Office Visit Dermatology at [place] [address] [place] [address] Nilda Luis MD [facility] [place] [address] 02/14/2024 7:30 AM [place] [address] Joanna Watts MD [facility] [place] [address] documented as of this encounter Visit Diagnoses Diagnosis Psoriasis Other psoriasis documented in this encounter Care Teams Boat Carpenter Mechanic Relationship Specialty Start Date End Date Trinh Coates MD [facility] [address] [place] [address] PCP - General 01/11/10 documented as of this encounter
--- OUTSIDE RECORDS SUMMARY | 2023-09-25 11:41 | XMS_ITS | Encounter Summary ---
Author Organization [facility] Address [facility] [place] [address] Care Team Providers Care Traditional Maori Health Practitioner Name Role Phone Trinh Coates MD Primary Care Provider [phone] Encounter Details Date Type Department Care Team (Latest Contact Info) Description 01/31/2023 8:44 PM EST - 01/31/2023 10:14 PM [facility] Hospital [place] [address] Araceli Levi APRN [facility] [place] [address] Discharge Disposition: Home Social History Tobacco Use [...] Take 40 mg by mouth daily. 10/31/2012 doxycycline (Vibramycin) 100 mg capsule TAKE TWO [...] 01/22/2024 10:30 AM EST Appointment Mammography/[place] [address] Ladi Mendosa MD [facility] HEMATOLOGY [place] [address] 01/30/2024 11:30 AM EST Office Visit Dermatology at [address] [address] Nilda Luis MD [facility] [place] [address] 02/14/2024 7:30 AM [place] [address] Joanna Watts MD [facility] NEUROSURGERY [place], [place] [phone] documented as of this encounter Procedures Procedure [...] who have questions please contact the health emergency care tech that requested your imaging first. ? Narrative 01/31/2023 8:56 PM EST EXAMINATION: CT HEAD WO CONTRAST (GENERIC) CLINICAL HISTORY: headache s/p DSA TECHNIQUE: CT head performed without intravenous contrast administration. COMPARISON: CT angiogram of the [place] 11/08/2022. Head CT 07/24/2022 FINDINGS: [...] contrast administration. COMPARISON: CT angiogram of the [place] 11/08/2022. Head CT 07/24/2022 FINDINGS: [...] patients who have questions please contactthe health emergency care tech that requested your imaging first. Araceli Leach Levi FRONT END TECHNICIAN IMG CT ORDERABLES documented in this encounter Visit Diagnoses Not on filedocumented in this encounter Care Teams Traditional Maori Health Practitioner Relationship Specialty Start Date End Date Trinh Coates MD [address] [place] [address] PCP - General 01/11/10 documented as of this encounter
--- OUTSIDE RECORDS SUMMARY | 2023-09-25 11:41 | XMS_ITS | Encounter Summary ---
Author Organization [facility] Address [facility] [place] [address] Care Team Providers Care Forming Machine Operator Name Role Phone Trinh Coates MD Primary Care Provider [phone] Encounter Details Date Type Department Care Team (Latest Contact Info) Description 05/15/2023 3:00 PM EDT Office Visit [place] [address] Zackery Dawson MD [facility] [address] Chronic kidney disease, unspecified CKD stage; Hyperaldosteronism [...] IR Arteriogram Cerebral 05/19/2022 Joanna Watts MD [facility] INTERVENTIONL RAD IR ARTERIOGRAM CEREBRAL 01/31/2023 IR Arteriogram Cerebral 01/31/2023 Joanna Watts MD [facility] INTERVENTIONL RAD IR DRAIN CHECK/CHANGE/REMOVE 11/20/2017 IR Drain Check/Change/Remove 11/20/2017 Marcos Dey MD [facility] INTERVENTIONL RAD IR EMBOLIZATION CEREBRAL 07/24/2022 IR Embolization Cerebral 07/24/2022 Joanna Watts MD [facility] INTERVENTIONL RAD IR MEDIPORT REMOVAL 01/25/2018 IR Mediport Removal 01/25/2018 Scooby Muñoz APRN [facility] INTERVENTIONL RAD PRG EMG, LARYNX N/A 11/02/2015 FACIAL NERVE MONITORING, SETUP LARYNGEAL performed by Valentina Lucas MD at [facility] MAIN OR PRO BREAST RECONSTRUCTION IMMT/DLYD W/TISS DIRECTOR OF BANDS SBSQ EXPANSION Bilateral 04/26/2017 BREAST RECONSTRUCTION, IMMEDIATE OR DELAYED, W/ TISSUE DIRECTOR OF BANDS, INCLUDING SUBSEQUENT EXPANSION (WRVU 18.5) performed by Andre Gimenez MD at [facility] MAIN OR PRO BREAST RECONSTRUCTION W FREE FLAP Bilateral 04/26/2017 @BREAST RECONSTRUCTION W/ FREE FLAP, SUSAN (WRVU 42.58) performed by Andre Gimenez MD at [facility] LLOYD PRO BREAST RECONSTRUCTION W/LATSMS D/SI FLAP WO PRSTHC IMPL Bilateral 12/12/2017 @BREAST RECONSTRUCTION W/ LAT DORSI FLAP,W/O IMPLANT, SUSAN (WRVU 23.36) performed by Andre Gimenez MD at [facility] MAIN OR PRO DEBRIDEMENT SUBCUTANEOUS TISSUE 20 SQCM/< 06/22/2017 DEBRIDEMENT SKIN AND SUBCU, BREAST (WRVU 1.01) performed by Andre Gimenez MD at [facility] MAIN OR PRO EXPLORE PARATHYROID GLANDS N/A 11/02/2015 PARATHYROIDECTOMY OR EXPLORATION OF PARATHYROID(S) performed by Valentina Lucas MD at [facility] MAIN OR PRO FULL THICK GRFT TRUNK <20 SQCM Bilateral 04/26/2017 FTSG, FREE, DIR CLOSE DONOR SITE, TRUNK, 20 SQ CM OR LESS (WRVU 9.15) performed by Andre Gimenez MD at [facility] MAIN OR [facility] INCISION OF LYMPH CHANNELS Left 10/18/2018 INCISION & DRAINAGE LYMPHOCELE (WRVU 6.81) performed by Andre Gimenez MD at [facility] OR [facility] IV INJ TO TEST BLOOD FLOW IN FLAP/GRAFT Left 10/18/2018 IV INJECTION, AGENT TO TEST VASC FLOW IN FLAP OR GRAFT, ENT (WRVU 1.95) performed by Andre Gimenez MD at [facility] MAIN OR PRO MASTECTOMY, SIMPLE, COMPLETE Bilateral 04/26/2017 MASTECTOMY, SIMPLE, COMPLETE-SUSAN (WRVU 15.85) performed by Jolie Menendez MD at [facility] OR [facility] PARTIAL REMOVAL OF RIB Bilateral 04/26/2017 EXCISION OF RIB, PARTIAL (WRVU 7.26) performed by Andre Gimenez MD at [facility] OR [facility] PERM OCCLUSION/EMBOLIZATION, PERCUT, PLATE FITTER N/A 07/24/2022 @TRANSCATHETER OCCLUSION/EMBOLIZATION FOR TUMOR DESTRUCTION (WRVU 20.12) performed by Joanna Watts MD at [facility] ENRIQUE PRO REMOVE ARMPITS LYMPH NODES COMPLT Left 04/26/2017 LYMPHADENECTOMY, AXILLARY, COMPLETE (WRVU 13.87) performed by Jolie Menendez MD at [facility] MAIN OR [facility] REPLACE TISSUE DIRECTOR OF BANDS Bilateral 12/12/2017 TISSUE DIRECTOR OF BANDS REPLACEMENT, WITH PERMANENT PROSTHESIS, SUSAN (WRVU 8.01) performed by Andre Gimenez MD at [facility] MAIN OR PRO REVISION RECONSTRUCTED BREAST Left 06/22/2017 REVISION OF RECONSTRUCTED BREAST (WRVU 10.41) performed by Andre Gimenez MD at [facility] MAIN OR PRO REVISION RECONSTRUCTED BREAST Bilateral 12/12/2017 REVISION OFRECONSTRUCTED BREAST, SUSAN (WRVU 10.41) performed by Andre Gimenez MD at [facility] MAIN OR PRO THYMECTOMY, TRANSCERVICAL N/A 11/02/2015 THYMECTOMY, TRANSCERVICAL APPROACH performed by Valentina Lucas MD at [facility] OR SHOULDER SURGERY Left [...] spent on encounter greater than 50% direct career placement services counselor with patient Zackery Dawson MD, MPH Section of Nephrology #[id number] documented in this encounter Plan of Treatment Upcoming Encounters Date Type Department Care Team (Late st Contact Info) Description 01/22/2024 10:30 AM EST Appointment Mammography/DXA at [place] [phone] Ladi Mendosa MD [facility] [place] [address] 01/30/2024 11:30 AM EST Office Visit Dermatology at [address] [address] Nilda Luis MD [facility] [place] [address] 02/14/2024 7:30 AM EST [place] [phone] Joanna Watts MD [facility] [place] [address] Scheduled Orders Name Type Priority Associated Diagnoses [...] Protein/Creatinine Ratio, urine (05/15/2023 3:00 PM EDT) Creatinine, Urine 82 mg/dL [facility] Protein, Urine 45(H) 0 - 12 mg/dL [facility] Protein / Creatinine Ratio, Urine 0.5 ratio [facility] Urine Urine / Unknown 05/15/2023 3 :00 PM EDT 05/15/2023 4:35 PM EDT Narrative Resulting Agency Comment Spec In Lab Zackery Dawson MD URINE ORDERABLES [facility] [place] [address] * (ABNORMAL) U Albumin/Cre Ratio (05/15/2023 3:00 PM EDT) Albumin / Creatinin Ratio, Urine 430(H) 0 - 29 mcg/mg Cr [facility] Comment: Reference Ranges: <30 mcg/mg: [...] [employer] Supplements (2012) 2, 357? 362 Albumin, Urine 352.8 mg/L [facility] Creatinine, Urine 82 mg/dL [facility] PERE[facility] Urine Urine / Unknown 05/15/2023 3 :00 PM EDT 05/15/2023 4:35 PM EDT Narrative Resulting Agency Comment Spec In Lab Zackery Dawson MD URINE ORDERABLES [facility] [place] [address] documented in this encounter Visit Diagnoses Diagnosis Chronic kidney disease, unspecified CKD stage Hyperaldosteronism Hyperaldosteronism, unspecified documented in this encounter Care Teams Forming Machine Operator Relationship Specialty Start Date End Date Trinh Coates MD [address] [place] [address] PCP - General 01/11/10 documented as of this encounter
--- OUTSIDE RECORDS SUMMARY | 2023-09-25 11:41 | XMS_ITS | Encounter Summary ---
Author Organization [facility] [place] [address] Care Team Providers Care Corporate Claims Examiner Name Role Phone Trinh Coates MD Primary Care Provider [phone] Encounter Details Date Type Department Care Team (Latest Contact Info) Description 01/24/2023 7:33 AM EST - 01/24/2023 11:59 PM [facility] Hospital [place] [phone] Discharge Disposition: Home Social History Tobacco Use [...] 01/22/2024 10:30 AM EST Appointment Mammography/[place] [phone] Ladi Mendosa MD [facility] HEMATOLOGY [place] [address] 01/30/2024 11:30 AM EST Office Visit Dermatology at [address] [phone] Nilda Luis MD [facility] [place] [address] 02/14/2024 7:30 AM [place] [phone] Joanna Watts MD [facility] [place] [address] documented as of this encounter Visit Diagnoses Not on filedocumented in this encounter Care Teams Corporate Claims Examiner Relationship Specialty Start Date End Date Trinh Coates MD [facility] [address]AN [address] [place] [address] PCP - General 01/11/10 documented as of this encounter
--- OUTSIDE RECORDS SUMMARY | 2023-09-25 11:41 | XMS_ITS | Encounter Summary ---
Author Organization [facility] Address [facility] [place] [address] Care Team Providers Care Cartographic Designer Name Role Phone Trinh Coates MD Primary Care Provider [phone] Encounter Details Date Type Department Care Team (Latest Contact Info) Description 05/15/2023 1:30 PM EDT Laboratory Appointment Lab [address] [place] [phone] Chronic kidney disease, unspecified CKD stage Social [...] 01/22/2024 10:30 AM EST Appointment Mammography/[place] [phone] Ladi Mendosa MD [facility] [address] [place] [address] 01/30/2024 11:30 AM EST Office Visit Dermatology at [facility] [address] [place] [phone] Nilda Luis MD [facility] [place] [place] [address] 02/14/2024 7:30 AM EST Appointment Radiology at [facility] [place] [phone] Joanna Watts MD [facility] [address] documented as of this encounter Procedures Procedure Name Priority Date/Time Associated Diagnosis Comments PTH Routine 05/15/2023 1:15 PM EDT Chronic kidney disease, unspecified CKD stage VITAMIN D, 25-HYDROXY Routine 05/15/2023 1:15 PM EDT Chronic kidney disease, unspecified CKD stage MAGNESIUM Routine 05/15/2023 1:15 PM EDT Chronic kidney disease, unspecified CKD stage BASIC METABOLIC PANEL Routine 05/15/2023 1:15 PM EDT Chronic kidney disease, unspecified CKD stage documented in this encounter Results * (ABNORMAL) Basic Metabolic Panel (non-fasting) (05/15/2023 1:15 PM EDT) Glucose 184 65 - 199 mg/dL [facility] Comment:Diabetes: >=200 mg/d L plus symptoms Blood Urea Nitrogen 40(H) 8 - 18 mg/dL [facility] Creatinine 1.89(H) 0.70 - 1.20 mg/dL [facility] Sodium 141 135 - 145 mmol/L [facility] Potassium 4.7 3.5 - 5.0 mmol/L [facility] Comment: Please note: ??Patients with WBC >100,000 may have falsely elevated Potassium levels. ??For accurate Potassium quantification in these patients send serum separator tube (gold top) for subsequent determinations. ??Contact the Clinical Chemistry Laboratory if there are any questions. Chloride 106 98 - 107 mmol/L [facility] Carbon Dioxide 22 22 - 31 mmol/L [facility] Anion Gap 13 5 - 15 mmol/L [facility] Calcium 9.4 8.5 - 10.5 mg/dL [facility] Est Glomerular Filtration Rate 30(L) >=60 mL/min/1. 73 m?? [facility] Comment: This patient's estimated GFR [...] Dawson MD CHEMISTRY ORDERABLES Performing Organization Address City/[facility]/ZIP Co de Phone Number [facility] [place] [address] * Magnesium (05/15/2023 1:15 PM EDT) Magnesium 0.95 0.69 - 1.07 mmol/L [facility] Blood 05/15/2023 1:15 PM EDT 05/15/2023 1:18 PM EDT Narrative Resulting Agency Comment Spec In Lab Zackery Dawson MD CHEMISTRY ORDERABLES [facility] [place] [address] * PTH (05/15/2023 1:15 PM EDT) Parathyroid Hormone 47 15 - 65 pg/mL [facility] Blood 05/15/2023 1:15 PM EDT 05/15/2023 1:18 PM EDT Narrative Resulting Agency Comment Spec In Lab Zackery Dawson MD CHEMISTRY ORDERABLES Performing Organization Address City/[facility]/ZIP Co de Phone Number [facility] [place] [address] * Vitamin D, 25-Hydroxy (05/15/2023 1:15 PM EDT) Vitamin D Total 25 OH 62 21 - 100 ng/mL [facility] Vit D Interp Sufficient [facility] Blood 05/15/2023 1:15 PM EDT 05/15/2023 1:18 PM EDT Narrative Resulting Agency Comment Spec In Lab Zackery Dawson MD CHEMISTRY ORDERABLES Performing Organization Address City/[facility]/ZIP Co de Phone Number [facility] [place] [address] documented in this encounter Visit Diagnoses Diagnosis Chronic kidney disease, unspecified CKD stage documented in this encounter Care Teams Cartographic Designer Relationship Specialty Start Date End Date Trinh Coates MD [facility] [address] [place] [address] PCP - General 01/11/10 documented as of this encounter
--- OUTSIDE RECORDS SUMMARY | 2023-09-25 11:41 | XMS_ITS | Encounter Summary ---
Author Organization [facility] [place] [address] Care Team Providers Care Node Js Developer Name Role Phone Trinh Coates MD Primary Care Provider [phone] Reason for Visit * Diagnostic Test (Routine) - Closed Specialty Diagnoses / Procedures Referred By Diamante marin Referred To Contact Radiology Diagnoses Right internal carotid artery aneurysm Procedures IR Arteriogram Cerebral Araceli Levi [facility] [place] [address] [place] [address] Referral ID Status Reason Start Date Expiration Date V isits Requested Visits Authorized [id number] Closed Specialty Service Requested 09/20/2022 03/23/2024 1 1 Encounter Details Date Type Department Care Team (Latest Contact Info) Description 01/31/2023 12:36 PM EST - 01/31/2023 8:43 PM EST Hospital [place] [phone] Araceli Levi [facility] [place] [address] 4mm AXEL aneurysm - likely [...] Posadas RN - 01/31/2023 3:35 PM EST [facility] Interventional Radiology Post Angiography Instructions Procedure: [...] or hoildays, call and ask for the vice president planning general road production manager. OR Vascular Department at until 4:45pm. After 4:45pm call and ask for the Vascular resident general road production manager. 10. If you are a diabetic and [...] . Please call the Neurosurgery Office at [phone] if you do not receive a scheduled appointment within two weeks. You will follow-up with: [x] Dr. Watts [] Dr. Durbin [] Dr. Meyer Imaging: [facility] HOW TO REACH NEUROSURGERY Office Hours (Sunday through Sunday 8am-5pm): Call On weekends or after office hours (after 5pm or before 8am): Call [phone] and ask the linderman machine operator to page the Neurosurgery Resident/Advanced Practice Provider general road production manager. *Your surgeon may not be crew caller (especially after office hours or on the weekend) so be ready totell about yourself and your surgery when you call. Neurosurgery Providers Adult Neurosurgery Dr. Nevan Nathan Dr. Sherman Echt Dr. Willissaige Colunga Pediatric Neurosurgery Dr. Arpita Jarrett Advanced Practice Providers Nallely Barry, Nurse Practitioner (outpatient telehealth) Jackie Sarmiento, Physician Cost And Sales Record Supervisor (inpatient/outpatient: neuro-oncology) Christy Bentley, Physician Cost And Sales Record Supervisor (inpatient) Manuel Nunez, Nurse Practitioner (outpatient: pediatric) Araceli Levi, Nurse Practitioner (outpatient: vascular) Venessa Mckeon, Physician Cost And Sales Record Supervisor (outpatient: spine) Mitch Aguilar, Physician Cost And Sales Record Supervisor (outpatient) Outpatient Nurses Rachna Guerrero, JENNYFER Zuluaga [...] SBP<160 -Discharge once criteria met PLEASE PAGE [phone] WITH QUESTIONS There are no hospital problems [...] Depression Maximilian Sanchez MD 01/31/2023 * Susana Posadas RN - 01/31/2023 2:26 PM EST [facility] NURSING DATABASE Name: Wendy Sandoval Date of : 1965 AGE: 57 y.o. Address: [address] [place] [phone] (home) [phone] (work) Mobile: Telephone Information: Referring Provider: Araceli Levi REASON FOR VISIT: Order Questions Answers Where will study be performed? [facility] Radiology [120] Is the patient on anticoagulant [...] this encounter H&P Notes * Araceli Levi, SKIP HOIST OPERATOR - 01/31/2023 10:54 AM EST NEURORADIOLOGY BRIEF [...] Operative Note Patient Name: Wendy Sandoval : [id number] MR#: [id number] Case Date: 01/31/2023 Surgeon: Mac Preoperative diagnosis: AXEL aneurism Postoperative diagnosis: AXEL aneurism DSA R Radial access attempted R TRUST MAIL CLERK, Closed with angioseal Anesthesia: Concious sedation Findings: [...] 01/22/2024 10:30 AM EST Appointment Mammography/[place] [phone] Ladi Mendosa MD [facility] DR [place] [address] 01/30/2024 11:30 AM EST Office Visit Dermatology at [place] [address] [place] [address] Nilda Luis MD [facility] [place] [address] 02/14/2024 7:30 AM EST [place] [phone] Joanna Watts MD [facility] [place] [address] Scheduled Orders Name Type Priority Associated Diagnoses [...] who have questions please contact the health skin care consultant that requested your imaging first. ? Electronically signed by: Bill Smith MD, [facility] ([phone]), at 01/31/2023 8:56 PM Narrative 01/31/2023 8:56 PM EST EXAMINATION: CT HEAD WO CONTRAST (GENERIC) CLINICAL HISTORY: headache s/p [facility] TECHNIQUE: CT head performed without intravenous contrast administration. COMPARISON: CT angiogram of the [place] 11/08/2022. Head CT 07/24/2022 FINDINGS: [...] contrast administration. COMPARISON: CT angiogram of the [place] 11/08/2022. Head CT 07/24/2022 FINDINGS: [...] patients who have questions please contactthe health skin care consultant that requested your imaging first. Electronically signed by: Bill Smith MD, [facility]([phone]), at 01/31/2023 8:56 PM Araceli Haylee Gurmeet [facility] CT ORDERABLES documented in [...] mL/hr documented in this encounter Care Teams Node Js Developer Relationship Specialty Start Date End Date Trinh Coates MD [facility] [address] [place] [address] PCP - General 01/11/10 documented as of this encounter
--- OUTSIDE RECORDS SUMMARY | 2023-09-25 11:41 | XMS_ITS | Encounter Summary ---
Author Organization [facility] Address [facility] [place] [address] Care Team Providers Care Heddler Name Role Phone Trinh Coates MD Primary Care Provider [phone] Encounter Details Date Type Department Care Team (Late st Contact Info) Description 02/05/2023 [place]phone [place] [phone] Joanna Watts MD [facility] [place] [address] Social History Tobacco Use Types Packs/Day Years [...] AM EST Appointment Mammography/DXA at [place] [phone] Ladi Mendosa MD [facility] DR [place] [address] 01/30/2024 11:30 AM EST Office Visit Dermatology at [address] [address] Nilda Luis MD [facility] [place] [address] 02/14/2024 7:30 AM EST Appointment Radiology at [place] [phone] Joanna Watts MD [facility] [place] [address] documented as of this encounter Visit Diagnoses Not on filedocumented in this encounter Care Teams Heddler Relationship Specialty Start Date End Date Trinh Coates MD [facility] [address] [place] [address] PCP - General 01/11/10 documented as of this encounter
--- OUTSIDE RECORDS SUMMARY | 2023-09-25 11:41 | XMS_ITS | Encounter Summary ---
Author Organization [facility] Address [facility] [place] [address] Care Team Providers Care Wet Sander Name Role Phone Trinh Coates MD Primary Care Provider [phone] Encounter Details Date Type Department Care Team [...] 01/22/2024 10:30 AM EST Appointment Mammography/[place] [address] Ladi Mendosa MD [facility] [address] [place] [address] 01/30/2024 11:30 AM EST Office Visit Dermatology at [facility] [address] [place] [phone] Nilda Luis MD [facility] [place] [address] 02/14/2024 7:30 AM EST Appointment [place] [address] Joanna Watts MD [facility] [address] documented as of this encounter Visit Diagnoses Not on filedocumented in this encounter Care Teams Wet Sander Relationship Specialty Start Date End Date Trinh Coates MD [facility] EVAN [address]LIN [address] [address] PCP - General 01/11/10 documented as of this encounter
--- OUTSIDE RECORDS SUMMARY | 2023-09-25 11:41 | XMS_ITS | Encounter Summary ---
Author Organization [facility] [place] [address] Care Team Providers Care Financial Operations Consultant Name Role Phone Trinh Coates MD Primary Care Provider Reason for Referral * Diagnostic Test (Routine) - Closed Specialty Diagnoses / Procedures Referred By Diamante t Referred To Contact Radiology Diagnoses Brain aneurysm Procedures CT Angiogram Alfred Martínez MD [facility] [place] [address] [facility] [place] [address] Referral ID Status Reason Start Date Expiration Date V isits Requested Visits Authorized [id number] Closed Specialty Service Requested 10/26/2022 04/24/2023 1 1 Reason for Visit * Diagnostic Test (Routine) - Closed Specialty Diagnoses / Procedures Referred By Diamante marin Referred To Contact Radiology Diagnoses Brain aneurysm Procedures CT Angiogram Alfred Martínez MD [facility] [place] [place] [address] [facility] [place] [address] Referral ID Status Reason Start Date Expiration Date V isits Requested Visits Authorized [id number] Closed Specialty Service Requested 10/26/2022 04/24/2023 1 1 Encounter Details Date Type Department Care Team (Latest Contact Info) Description 11/08/2022 11:14 AM EDT - 11/08/2022 11:59 PM EDT Hospital Encounter CT Scan at [facility] [place] [address] Joanna Watts MD [facility] [place] [address] Brain aneurysm Discharge Disposition: Home Social History [...] Take 40 mg by mouth daily. 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 30 tablet 11 10/13/2021 01/08/2023 documented as of this encounter Plan of Treatment Upcoming Encounters Date Type Department Care Team (Late st Contact Info) Description 01/22/2024 10:30 AM EST Appointment Mammography/[place] [address] Ladi Mendosa MD [facility] HEMATOLOGY [place] [address] 01/30/2024 11:30 AM EST Office Visit Dermatology at [facility] [address] [place] [address] Nilda Luis MD [facility] [place] [address] 02/14/2024 7:30 AM EST Appointment [place] [address] Joanna Watts MD [facility] [place] [place] [address] documented as of this encounter Procedures Procedure Name Priority Date/Time Associated Diagnosis Comments CT [place] W CONTRAST Routine 11/08/2022 12:15 PM EDT Brain aneurysm documented in this encounter Results * CT Angiogram [place] (11/08/2022 12:15 PM EDT) Anatomical [...] who have questions please contact the health occasional caregiver that requested your imaging first. ? 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 No evidence for recurrence. Apparent filling defect within the right ICA at the horizontal/cavernous junction which may reflect dissection. Anterior communicating artery complex is normal. Vertebrobasilar system is normal. No central branch occlusion in the [place]. origin left SUPERVISOR DECORATING. 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 No evidence for recurrence. Apparent filling defect within theright ICA at the horizontal/cavernous junction which may reflect dissection.Anterior communicating artery complex is normal. Vertebrobasilar system is normal.No central branch occlusion in the [place]. origin left SUPERVISOR DECORATING. 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 Thank you for letting us participate in the care of this patient. If youare a health care provider and have any questions regarding this report,please contact the number below. For patients who have questions please contactthe health occasional caregiver that requested your imaging first. Joanna Watts MD IM CT ORDERABLES documented in this encounter Visit [...] mLs documented in this encounter Care Teams Financial Operations Consultant Relationship Specialty Start Date End Date Trinh Coates MD [address] [place] [address] PCP - General 01/11/10 documented as of this encounter
--- OUTSIDE RECORDS SUMMARY | 2023-09-25 11:41 | XMS_ITS | Encounter Summary ---
Author Organization [facility] Address [facility] [place] [address] Care Team Providers Care Top Lift And Automatic Window Repairer Name Role Phone Trinh Coates MD Primary Care Provider [phone] Encounter Details Date Type Department Care Team [...] 01/22/2024 10:30 AM EST Appointment Mammography/[place] [address] Ladi Mendosa MD [facility] [address] [place] [address] 01/30/2024 11:30 AM EST Office Visit Dermatology at [facility] [address] [place] [address] Nilda Luis MD [facility] [place] [address] 02/14/2024 7:30 AM EST [place] [address] Joanna Watts MD [facility] [place] [address] documented as of this encounter Visit Diagnoses Not on filedocumented in this encounter Care Teams Top Lift And Automatic Window Repairer Relationship Specialty Start Date End Date Trinh Coates MD [facility] [address] [address] PCP - General 01/11/10 documented as of this encounter
--- OUTSIDE RECORDS SUMMARY | 2023-09-25 11:41 | XMS_ITS | Encounter Summary ---
Author Organization [facility] [place] [address] Care Team Providers Care Automobile Mechanic Helper Name Role Phone Trinh Coates MD Primary Care Provider Reason for Visit * Reason Comments Specialty Pharmacy Review Encounter Details Date Type Department Care Team (Late st Contact Info) Description 01/30/2023 Specialty [place] [phone] Mike Cavazos, [facility] Social History Tobacco Use Types [...] Cavazos - 01/30/2023 11:59 PM EST The [facility] has completed a benefits investigation for Wendy Sandoval to review their eligibility to fill at [facility]. Per patient's medication list they are prescribed STELARA 45 MG/0.5 ML and the medication is not able to be filled at the [facility]. At this time insurance mandates this medication must be filled through [facility]. documented in this encounter Plan of Treatment Upcoming Encounters Date Type Department Care Team (Late st Contact Info) Description 01/22/2024 10:30 AM EST Appointment Mammography/[place] [address] Ladi Mendosa MD [facility] [place] [address] 01/30/2024 11:30 AM EST Office Visit Dermatology at [place] [address] [place] [address] Nilda Luis MD [facility] [address] 02/14/2024 7:30 AM EST [place] [address] Joanna Watts MD [facility] [place] [address] documented as of this encounter Visit Diagnoses Not on filedocumented in this encounter Care Teams Automobile Mechanic Helper Relationship Specialty Start Date End Date Trinh Coates MD [facility] [address] [place] [address] PCP - General 01/11/10 documented as of this encounter
--- OUTSIDE RECORDS SUMMARY | 2023-09-25 11:41 | XMS_ITS | Encounter Summary ---
Author Organization [facility] [address] Care Team Providers Care Office Machines Sales Representative Name Role Phone Trinh Coates MD Primary Care Provider [phone] Encounter Details Date Type Department Care Team (Late st Contact Info) Description 03/01/2023 [place] [address] Gerald Zuluaga, RN Social History [...] EST Received call back from Xiomara at [facility]. They will proceed with patient's surgery [...] - 03/01/2023 5:05 PM EST Copied from [facility] #[id number]. Topic: Specialty Dept CRMs - Generic Call [...] 01/22/2024 10:30 AM EST Appointment Mammography/[place] [address] Ladi Mendosa MD [facility] [place] [address] 01/30/2024 11:30 AM EST Office Visit Dermatology at [address] [address] Nilda Luis MD [facility] [place] [address] 02/14/2024 7:30 AM EST [place] [address] Joanna Watts MD [facility] [place] [address] documented as of this encounter Visit Diagnoses Not on filedocumented in this encounter Care Teams Office Machines Sales Representative Relationship Specialty Start Date End Date Trinh Coates MD [address] [place] [address] PCP - General 01/11/10 documented as of this encounter
--- OUTSIDE RECORDS SUMMARY | 2023-09-25 11:41 | XMS_ITS | Encounter Summary ---
Author Organization [facility] Address [facility] [place] [address] Care Team Providers Care Incident Analyst Name Role Phone Trinh Coates MD Primary Care Provider [phone] Encounter Details Date Type Department Care Team (Late st Contact Info) Description 03/05/2023 Telephone [place] [address] Tawana Booth RN Social History [...] EST Received call back from Xiomara at [facility]. They will proceed with patient's surgery with her on aspirin. documented in this encounter Plan of Treatment Upcoming Encounters Date Type Department Care Team (Late st Contact Info) Description 01/22/2024 10:30 AM EST Appointment Mammography/[place] [address] Ladi Mendosa MD [facility] DR HEMATOLOGY [place] [address] 01/30/2024 11:30 AM EST Office Visit Dermatology at [facility] [address] [place] [address] Nilda Luis MD [facility] [place] [address] 02/14/2024 7:30 AM EST Appointment Radiology at [facility] [place] [address] Joanna Watts MD [facility] [place] [address] documented as of this encounter Visit Diagnoses Not on filedocumented in this encounter Care Teams Incident Analyst Relationship Specialty Start Date End Date Trinh Coates MD [facility] [address] [place] [address] PCP - General 01/11/10 documented as of this encounter
--- OUTSIDE RECORDS SUMMARY | 2023-09-25 11:41 | XMS_ITS | Encounter Summary ---
Author Organization [facility] [place] [address] Care Team Providers Care Staffing Executive Name Role Phone Trinh Coates MD Primary Care Provider [phone] Encounter Details Date Type Department Care Team (Late st Contact Info) Description 02/01/2023 Telephone [place] [address] Erich Davis MD [facility] [place] [address] Social History Tobacco Use Types Packs/Day Years [...] to schedule angiogram Erich Davis MD P [facility] Agile Tester Courtney, This patient will follow up with Dr Watts with a repeat cerebral angiogram in one year. Thank you, Arian documented in this encounter Plan of Treatment Upcoming Encounters Date Type Department Care Team (Late st Contact Info) Description 01/22/2024 10:30 AM EST Appointment Mammography/[place] [address] Ladi Mendosa MD [facility] H[place]AT[place] [address] 01/30/2024 11:30 AM EST Office Visit Dermatology at [address] [place] [phone] Nilda Luis MD [facility] [place] [address] 02/14/2024 7:30 AM EST Appointment [place] [address] Joanna Watts MD [facility] [place] [address] documented as of this encounter Visit Diagnoses Not on filedocumented in this encounter Care Teams Staffing Executive Relationship Specialty Start Date End Date Trinh Coates MD [facility] [address] [place] [address] PCP - General 01/11/10 documented as of this encounter
--- OUTSIDE RECORDS SUMMARY | 2023-09-25 11:41 | XMS_ITS | Encounter Summary ---
Author Organization [facility] Address [facility] [place] [address] Care Team Providers Care Forest Products Teacher Name Role Phone Trinh Coates MD Primary Care Provider [phone] Encounter Details Date Type Department Care Team [...] 01/22/2024 10:30 AM EST Appointment Mammography/[place] [address] Ladi Mendosa MD [facility] [address] [place] [address] 01/30/2024 11:30 AM EST Office Visit Dermatology at [facility] [address] [place] [phone] Nilda Luis MD [facility] [place] [address] 02/14/2024 7:30 AM EST Appointment [place] [address] Joanna Watts MD [facility] [place] [address] documented as of this encounter Visit Diagnoses Not on filedocumented in this encounter Care Teams Forest Products Teacher Relationship Specialty Start Date End Date Trinh Coates MD [facility] [address] [address] PCP - General 01/11/10 documented as of this encounter
--- OUTSIDE RECORDS SUMMARY | 2023-09-25 11:41 | XMS_ITS | Encounter Summary ---
Author Organization [facility] Address [facility]ita [facility] [place] [address] Care Team Providers Care Communications Advisor Name Role Phone Trinh Coates MD Primary Care Provider [phone] Encounter Details Date Type Department Care Team (Late st Contact Info) Description 05/15/2023 Orders Only Neph[place] [address] Zackery Dawson MD [facility] [place] [address] Chronic kidney disease, unspecified CKD stage Social [...] 01/22/2024 10:30 AM EST Appointment Mammography/[place] [address] Ladi Mendosa MD [facility] [place] [address] 01/30/2024 11:30 AM EST Office Visit Dermatology at [facility] [address] [place] [address] Nilda Luis MD [facility] [place] [address] 02/14/2024 7:30 AM EST [place] [address] Joanna Watts MD [facility] [place] [address] documented as of this encounter Results * Vitamin D, 25-Hydroxy (05/15/2023 1:15 PM EDT) [facility] Vitamin D Total 25 OH 62 21 - 100 ng/mL [facility] Vit D Interp Sufficient [facility] Blood 05/15/2023 1:15 PM EDT 05/15/2023 1:18 PM EDT Narrative Resulting Agency Comment Spec In Lab Zackery Dawson MD CHEMISTRY ORDERABLES Performing Organization Address City/[facility]/ZIP Co de Phone Number [facility] [place] [address] * PTH (05/15/2023 1:15 PM EDT) [facility] Parathyroid Hormone 47 15 - 65 pg/mL [facility] Blood 05/15/2023 1:15 PM EDT 05/15/2023 1:18 PM EDT Narrative Resulting Agency Comment Spec In Lab Zackery Dawson MD CHEMISTRY ORDERABLES Performing Organization Address City/[facility]/ZIP Co de Phone Number [facility] [place] [address] * Magnesium (05/15/2023 1:15 PM EDT) [facility] Magnesium 0.95 0.69 - 1.07 mmol/L [facility] Blood 05/15/2023 1:15 PM EDT 05/15/2023 1:18 PM EDT Narrative Resulting Agency Comment Spec In Lab Zackery Dawson MD CHEMISTRY ORDERABLES [facility] [place] [address] * (ABNORMAL) Basic Metabolic Panel (non-fasting) (05/15/2023 1:15 PM EDT) Glucose 184 65 - 199 mg/dL [facility] Comment:Diabetes: >=200 mg/d L plus symptoms Blood Urea Nitrogen 40(H) 8 - 18 mg/dL [facility] Creatinine 1.89(H) 0.70 - 1.20 mg/dL [facility] Sodium 141 135 - 145 mmol/L [facility] Potassium 4.7 3.5 - 5.0 mmol/L [facility] Comment: Please note: ??Patients with WBC >100,000 may have falsely elevated Potassium levels. ??For accurate Potassium quantification in these patients send serum separator tube (gold top) for subsequent determinations. ??Contact the Clinical Chemistry Laboratory if there are any questions. Chloride 106 98 - 107 mmol/L [facility] Carbon Dioxide 22 22 - 31 mmol/L [facility] Anion Gap 13 5 - 15 mmol/L [facility] Calcium 9.4 8.5 - 10.5 mg/dL [facility] Est Glomerular Filtration Rate 30(L) >=60 mL/min/1. 73 m?? [facility] [...] Dawson MD CHEMISTRY ORDERABLES Performing Organization Address City/State/[facility] Co de Phone Number [facility] [place] [address] documented in this encounter Visit Diagnoses Diagnosis Chronic kidney disease, unspecified CKD stage documented in this encounter Care Teams Communications Advisor Relationship Specialty Start Date End Date Trinh Coates MD [facility] [address] [place] [address] PCP - General 01/11/10 documented as of this encounter
--- OUTSIDE RECORDS SUMMARY | 2023-09-25 11:41 | XMS_ITS | Encounter Summary ---
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 [...] 01/22/2024 10:30 AM EST Appointment Mammography[place] [address] Ladi Mendosa MD [facility] DR HEMATOLOGY [place] [address] 01/30/2024 11:30 AM EST Office Visit Dermatology at [facility] [address] [place] [address] Nilda Luis MD [facility] [place] [address] 02/14/2024 7:30 AM EST Appointment Radiology at [facility] [place] [address] Joanna Watts MD [facility] [place] [address] documented as of this encounter Procedures Procedure Name Priority Date/Time Associated Diagnosis Comments HC PLATELET COUNT STAT 01/24/2023 12: 12 PM EST 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 BASIC METABOLIC PANEL STAT 01/24/2023 12:12 PM EST 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 documented in this encounter Results * (ABNORMAL) Basic Metabolic Panel (non-fasting) (01/24/2023 12:12 PM EST) Glucose 76 65 - 199 mg/dL [facility] Comment:Diabetes: >=200 mg/d L plus symptoms Blood Urea Nitrogen 35(H) 8 - 18 mg/dL [facility] Creatinine 1.91(H) 0.70 - 1.20 mg/dL [facility] Sodium 143 135 - 145 mmol/L [facility] Potassium 4.5 3.5 - 5.0 mmol/L [facility] Comment: Please note: ??Patients with WBC >100,000 may have falsely elevated Potassium levels. ??For accurate Potassium quantification in these patients send serum separator tube (gold top) for subsequent determinations. ??Contact the Clinical Chemistry Laboratory if there are any questions. Chloride 106 98 - 107 mmol/L [facility] Carbon Dioxide 24 22 - 31 mmol/L [facility] Anion Gap 13 5 - 15 mmol/L [facility] Calcium 10.2 8.5 - 10.5 mg/dL [facility] Est Glomerular Filtration Rate 30(L) >=60 mL/min/1. 73 m?? [facility] Comment: This patient's estimated GFR [...] Agency Comment Spec In Lab Araceli Levi TELEVISION INSTALLER CHEMISTRY ORDERABLES [facility] [place] [address] * (ABNORMAL) Platelet count (01/24/2023 12:12 PM EST) Platelet 375(H) 145 - 357 x10(3)/mc L [facility] Immature Plt % 0.8 0.0 - 7.4 % [facility] Comment: Limitation of the Immature Platelet Fraction (IPF)-May be less reliable when the platelet count is less than 57g708/uL due to statistical imprecision. The IPF value [...] in a decreased state of production. References: [employer] The Clinical Value of the Immature Platelet Fraction (IPF) in Cell Recovery Document Number [id number] 07/2010 [employer] 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
--- OUTSIDE RECORDS SUMMARY | 2023-09-25 11:41 | XMS_ITS | Encounter Summary ---
[place] [address] Care Team Providers Care Broadcast Maintenance Technician Name Role Phone Trinh Coates MD Primary Care Provider [phone] Encounter Details Date Type Department Care Team (Late st Contact Info) Description 11/29/2022 [place] [address] Rachna Guerrero RN Social History [...] 11/29/2022 12:38 PM EDT Copied from [facility] #[id number]. Topic: Specialty Dept CRMs - Generic Call [...] 01/22/2024 10:30 AM EST Appointment Mammography/[place] [address] Ladi Mendosa MD [facility] HEMATOLOGY [place] [address] 01/30/2024 11:30 AM EST Office Visit Dermatology at [facility] [address] [place] [address] Nilda Luis MD [facility] [place] [address] 02/14/2024 7:30 AM EST Appointment Radiology at [facility] [place] [address] Joanna Watts MD [facility] [place] [address] documented as of this encounter Visit Diagnoses Not on filedocumented in this encounter Care Teams Broadcast Maintenance Technician Relationship Specialty Start Date End Date Trinh Coates MD [facility] [address] [place] [address] PCP - General 01/11/10 documented as of this encounter
--- OUTSIDE RECORDS SUMMARY | 2023-09-25 11:41 | XMS_ITS | Encounter Summary ---
Author Organization [facility] [place] [address] Care Team Providers Care Loin Puller Name Role Phone Trinh Coates MD Primary Care Provider [phone] Encounter Details Date Type Department Care Team (Late st Contact Info) Description 05/21/2023 3:05 PM EDT Ancillary Procedure [place] [phone] Marcos Dey MD [facility] [place] [address] Social History Tobacco Use Types Packs/Day Years [...] 01/22/2024 10:30 AM EST Appointment Mammography/[place] [phone] Ladi Mendosa MD [facility] HEMATOLOG[place] [address] 01/30/2024 11:30 AM EST Office Visit Dermatology at [facility] [address] [place] [address] Nilda Luis MD [facility] [place] [address] 02/14/2024 7:30 AM EST Appointment [place] [address] Joanna Watts MD [facility] [place] [address] documented as of this encounter Procedures Procedure Name Priority Date/Time Associated Diagnosis Comments FILM LIBRARY STORAGE ONLY MR SPINE Routine 05/21/2023 3:00 PM EDT documented in this encounter Results * Film Library- Storage Only MR Spine (05/21/2023 3:00 PM EDT) Narrative [facility] - 05/21/2023 3:00 PM EDT This exam is auto-finalizing. It's purpose is for storage only. Marcos Dey MD IMG FILM LIBRARY ORD ERABLES [place], [place] documented in this encounter Visit Diagnoses Not on filedocumented in this encounter Care Teams Loin Puller Relationship Specialty Start Date End Date Trinh Coates MD [facility] [address] [place] [address] PCP - General 01/11/10 documented as of this encounter
--- OUTSIDE RECORDS SUMMARY | 2023-09-25 11:41 | XMS_ITS | Encounter Summary ---
Author Organization [facility] Address [facility] [place] [address] Care Team Providers Care Search Engine Marketing Strategist Name Role Phone Trinh Coates MD Primary Care Provider [phone] Encounter Details Date Type Department Care Team (Late st Contact Info) Description 05/21/2023 Telephone [place] [phone] Marilin Patel MD [facility] [place] [address] Social History Tobacco Use Types Packs/Day Years [...] a call from Mary Alberts APRN of [facility] regarding Wendy Sandoval who is a 57 y.o. 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 Watts) who presented to OSH [...] AM EST Appointment Mammography/DXA at [place] [phone] Ladi Mendosa MD [facility] HEMATOLOGY [place] [address] 01/30/2024 11:30 AM EST Office Visit Dermatology at [address] [phone] Nilda Luis MD [facility] [place] [address] 02/14/2024 7:30 AM EST Appointment [place] [address] Joanna Watts MD [facility] [place] [address] documented as of this encounter Visit Diagnoses Not on filedocumented in this encounter Care Teams Search Engine Marketing Strategist Relationship Specialty Start Date End Date Trinh Coates MD [address] [facility] [address] [place] [address] PCP - General 01/11/10 documented as of this encounter
--- OUTSIDE RECORDS SUMMARY | 2023-09-25 11:41 | XMS_ITS | Encounter Summary ---
Author Organization [facility] [place] [address] Care Team Providers Care Banquet Supervisor Name Role Phone Trinh Coates MD Primary Care Provider [phone] Encounter Details Date Type Department Care Team (Late st Contact Info) Description 02/05/2023 [place] [address] Tawana Booth RN Social History [...] 01/22/2024 10:30 AM EST Appointment Mammography/[place] [address] Ladi Mendosa MD [facility] HEMATOLOGY [place] [address] 01/30/2024 11:30 AM EST Office Visit Dermatology at [place] [address] [place] [phone] Nilda Luis MD [facility] [place] [address] 02/14/2024 7:30 AM EST [place] [address] Joanna Watts MD [facility] [address] documented as of this encounter Visit Diagnoses Not on filedocumented in this encounter Care Teams Banquet Supervisor Relationship Specialty Start Date End Date Trinh Coates MD [address] [place] [address] PCP - General 01/11/10 documented as of this encounter
--- OUTSIDE RECORDS SUMMARY | 2023-09-25 11:41 | XMS_ITS | Encounter Summary ---
Author Organization [facility] Address [facility] [place] [address] Care Team Providers Care Scutcher Tender Name Role Phone Trinh Coates MD Primary Care Provider [phone] Encounter Details Date Type Department Care Team [...] 01/22/2024 10:30 AM EST Appointment Mammography[place] [address] Ladi Mendosa MD [facility] [address] HEMATOLOGY [place] [address] 01/30/2024 11:30 AM EST Office Visit Dermatology at [facility] [address] [place] [phone] Nilda Luis MD [facility] [place] [address] 02/14/2024 7:30 AM EST [place] [address] Joanna Watts MD [facility] [place] [address] documented as of this encounter Visit Diagnoses Not on filedocumented in this encounter Care Teams Scutcher Tender Relationship Specialty Start Date End Date Trinh Coates MD [facility] [address] [address] PCP - General 01/11/10 documented as of this encounter
--- OUTSIDE RECORDS SUMMARY | 2023-09-25 11:41 | XMS_ITS | Encounter Summary ---
Author Organization [facility] [place] [address] Care Team Providers Care Prep Manager Name Role Phone Trinh Coates MD Primary Care Provider [phone] Encounter Details Date Type Department Care Team (Late st Contact Info) Description 02/14/2023 Notes [place] [address] Araceli Levi, DEBT COLLECTION SPECIALIST [facility] [place] [address] Social History Tobacco Use Types Packs/Day Years [...] 01/22/2024 10:30 AM EST Appointment Mammography/[place] [address] Ladi Mendosa MD [facility] DR HEMATOLOGY [place] [address] 01/30/2024 11:30 AM EST Office Visit Dermatology at [facility] [address] [place] [address] Nilda Luis MD [facility] [place] [address] 02/14/2024 7:30 AM EST [place] [address] Joanna Watts MD [facility] [place] [address] Scheduled Orders Name Type Priority Associated Diagnoses Orde r Schedule Creatinine Lab STAT Hypertension, unspecified type Expected: 08/16/2023, Expires: 02/15/2024 documented as of this encounter Visit Diagnoses Diagnosis Hypertension, unspecified type documented in this encounter Care Teams Prep Manager Relationship Specialty Start Date End Date Trinh Coates MD [facility] [address] [place] [address] PCP - General 01/11/10 documented as of this encounter
--- OUTSIDE RECORDS SUMMARY | 2023-09-25 11:41 | XMS_ITS | Encounter Summary ---
Author Organization [facility] [place] [address] Care Team Providers Care Homicide Squad Sergeant Name Role Phone Trinh Coates MD Primary Care Provider [phone] Encounter Details Date Type Department Care Team (Late st Contact Info) Description 01/26/2023 Notes [place] [address] Araceli Levi APRN [facility] [place] [address] Social History Tobacco Use Types Packs/Day Years [...] 5 mL, Intravenous, BID, Levi, Araceli L, [employer] TEACHER sodium chloride 0.9 % (flush) (BD PosiFlush Normal Saline 0.9) flush 5-20 mL, 5- 20 mL, Intravenous,Q1 Min PRN, Levi, Araceli L, [employer] ED TEACHER lidocaine (Xylocaine) 1% (10 mg/mL) injection 3 mg, 0.3 mL, Subcutaneous, Once PRN, Levi, Araceli L, [employer] SPECIAL ED TEACHER sodium chloride 0.9 % (flush) (BD PosiFlush Normal Saline 0.9) flush 10 mL, 10 mL, Intravenous, Daily PRN, Levi, Araceli L, [employer] ED TEACHER fentaNYL (pf) (50 mcg/mL) multi-dose injection 25-50 mcg, 25-50 mcg, Intravenous, Q3 Min PRN, Levi, Araceli L, [employer] SPECIAL ED TEACHER flumazeniL (Romazicon) (0.1 mg/mL) injection 0.2 mg, 0.2 mg, Intravenous, Q2 Min PRN, Levi, AmberL, [employer] ED TEACHER naloxone (NARCAN) injection 1 mg/mL 0.1 mg, 0.1 mg, Intravenous, Q2 Min PRN, Levi, Araceli L, [employer] ED TEACHER midazolam (pf) (Versed) (1 mg/mL) multi-dose injection 0.5-1 mg, 0.5-1 mg, Intravenous, Q3 Min PRN,Levi, Araceli L, [employer] ED TEACHER ondansetron (pf) (Zofran) (2 mg/mL) injection 4 mg, 4 mg, Intravenous, Once PRN, Levi, Araceli L, [employer] ED TEACHER sodium chloride 0.9% infusion, 100 mL/hr, Intravenous, Continuous, Levi, Araceli L, [employer] ED TEACHER sodium chloride 0.9 % (flush) (BD PosiFlush [...] 01/22/2024 10:30 AM EST Appointment Mammography/DXA at [place] [phone] Ladi Mendosa MD [facility] DR HEMATOLOGY [place] [address] 01/30/2024 11:30 AM EST Office Visit Dermatology at [facility] [address] [place] [address] Nilda Luis MD [facility] [place] [address] 02/14/2024 7:30 AM EST Appointment Radiology at [place] [phone] Joanna Watts MD [facility] [place] [address] documented as of this encounter Visit Diagnoses Not on filedocumented in this encounter Care Teams Homicide Squad Sergeant Relationship Specialty Start Date End Date Trinh Coates MD [facility] [address] [place] [address] PCP - General 01/11/10 documented as of this encounter
--- OUTSIDE RECORDS SUMMARY | 2023-09-25 11:41 | XMS_ITS | Encounter Summary ---
Author Organization [facility] Address [facility] [place] [address] Care Team Providers Care Armature Coil Winder Name Role Phone Trinh Coates MD Primary Care Provider [phone] Encounter Details Date Type Department Care Team (Late st Contact Info) Description 11/08/2022 10:25 AM EDT Laboratory Appointment Lab [address] [place] [phone] Social History Tobacco Use Types Packs/Day Years [...] 10:30 AM EST Appointment Mammography/[place] [address] Ladi Mendosa MD [facility] [place] [address] 01/30/2024 11:30 AM EST Office Visit Dermatology at [facility] [address] [address] Nilda Luis MD [facility] [address] 02/14/2024 7:30 AM EST Appointment Radiology at [facility] [place] [address] Joanna Watts MD [facility] [place] [address] documented as of this encounter Procedures Procedure Name Priority Date/Time Associated Diagnosis Comments TSH Routine 11/08/2022 10:02 AM EDT MAGNESIUM Routine 11/08/2022 10:02 AM EDT HEMOGLOBIN A1C Routine 11/08/2022 10:02 AM EDT BASIC METABOLIC PANEL Routine 11/08/2022 10:02 AM EDT documented in this encounter Results * (ABNORMAL) Basic Metabolic Panel (non-fasting) (11/08/2022 10:02 AM EDT) Glucose 107 65 - 199 mg/dL [facility] Comment:Diabetes: >=200 mg/d L plus symptoms Blood Urea Nitrogen 41(H) 8 - 18 mg/dL [facility] Creatinine 1.87(H) 0.70 - 1.20 mg/dL [facility] Sodium 138 135 - 145 mmol/L [facility] Potassium 4.9 3.5 - 5.0 mmol/L [facility] Comment: Please note: ??Patients with WBC >100,000 may have falsely elevated Potassium levels. ??For accurate Potassium quantification in these patients send serum separator tube (gold top) for subsequent determinations. ??Contact the Clinical Chemistry Laboratory if there are any questions. Chloride 102 98 - 107 mmol/L [facility] Carbon Dioxide 23 22 - 31 mmol/L [facility] Anion Gap 13 5 - 15 mmol/L [facility] Calcium 10.2 8.5 - 10.5 mg/dL [facility] Est Glomerular Filtration Rate 31(L) >=60 mL/min/1. 73 m?? [facility] Comment: This patient's estimated GFR [...] Narrative Resulting Agency Comment Spec In Lab Trnih Coates MD CHEMISTRY ORDERABLES [facility] [place] [address] * (ABNORMAL) Hemoglobin A1c (11/08/2022 10:02 AM EDT) Hemoglobin A1c 5.7(H) 4.3 - 5.6 % [facility] Comment: Reference Range: 4.3 [...] Mellitus, Diabetes Care 2013; 36: Suppl. 1, F67-08 Estimated Average Glucose 117 mg/dL [facility] Comment: eAG equivalents for HbA1c percentages: [...] into estimated average glucose values. ??Diabetes Care 2008:31(8):0233-2737. Blood Venous Draw / Unknown 11/08/2022 10:02 AM EDT 11/08/2022 10:41 AM EDT Narrative Resulting Agency Comment Spec In Lab Trinh Coates MD CHEMISTRY ORDERABLES Performing Organization Address [facility] de Phone Number [facility] [place] [address] * Magnesium (11/08/2022 10:02 AM EDT) Magnesium 0.89 0.69 - 1.07 mmol/L [facility] Blood Venous Draw / Unknown 11/08/2022 10:02 AM EDT 11/08/2022 10:44 AM EDT Narrative Resulting Agency Comment Spec In Lab Trinh Coates MD CHEMISTRY ORDERABLES Performing Organization Address [facility] de Phone Number [facility] [place] [address] * (ABNORMAL) TSH (11/08/2022 10:02 AM EDT) Thyroid Stimulating Hormone 4.55(H) 0.27 - 4.20 mcIU/mL [facility] Comment: Reference Interval (mcIU/mL): Females: ??First Trimester: 0.23-3.88 ??Second Trimester: 0.22-3.90 ??Third Trimester: 0.44-4.66 Blood Venous Draw / Unknown 11/08/2022 10:02 AM EDT 11/08/2022 10:44 AM EDT Narrative Resulting Agency Comment Spec In Lab Trinh Coates MD CHEMISTRY ORDERABLES Performing Organization Address City/State/[facility] Co de Phone Number [facility] [place] [address] documented in this encounter Visit Diagnoses Not on filedocumented in this encounter Care Teams Armature Coil Winder Relationship Specialty Start Date End Date Trinh Coates MD [address] [place], [place] [address] [place] [address] PCP - General 01/11/10 documented as of this encounter
--- OUTSIDE RECORDS SUMMARY | 2023-09-25 11:41 | XMS_ITS | Encounter Summary ---
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 [...] 01/22/2024 10:30 AM EST Appointment Mammography/[place] [phone] Ladi Mendosa MD [facility] DR [place] [address] 01/30/2024 11:30 AM EST Office Visit Dermatology at [facility] [address] [place] [address] Nilda Luis MD [facility] [place] [address] 02/14/2024 7:30 AM EST Appointment [place] [phone] Joanna Watts MD [facility] [place] [address] documented as of this encounter Procedures Procedure Name Priority Date/Time Associated Diagnosis Comments CREATININE STAT 11/08/2022 10:02 AM EDT 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 73 m?? 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
--- OUTSIDE RECORDS SUMMARY | 2023-09-25 11:41 | XMS_ITS | Encounter Summary ---
Author Organization [facility] Address [facility] [address] Care Team Providers Care Skoog Patching Machine Operator Name Role Phone Trinh Coates MD Primary Care Provider [phone] Encounter Details Date Type Department Care Team (Late st Contact Info) Description 02/05/2023 Telephone [place]iology [place] [phone] Joanna Watts MD [facility] [place] [address] Social History Tobacco Use Types Packs/Day Years [...] 01/22/2024 10:30 AM EST Appointment Mammography/[place] [address] Ladi Mendosa MD [facility] HEMATOLOGY [place] [address] 01/30/2024 11:30 AM EST Office Visit Dermatology at [place] [address] [place] [phone] Nilda Luis MD [facility] [place] [address] 02/14/2024 7:30 AM EST Appointment [place]iology [place] [address] Joanna Watts MD [facility] [place] [address] documented as of this encounter Visit Diagnoses Not on filedocumented in this encounter Care Teams Skoog Patching Machine Operator Relationship Specialty Start Date End Date Trinh Coates MD [facility] [address] [place] [address] PCP - General 01/11/10 documented as of this encounter
--- OUTSIDE RECORDS SUMMARY | 2023-09-25 11:41 | XMS_ITS | Encounter Summary ---
Author Organization [facility] Address [facility] [place] [address] Care Team Providers Care Wind Up Operator Name Role Phone Trinh Coates MD Primary Care Provider [phone] Encounter Details Date Type Department Care Team [...] 01/22/2024 10:30 AM EST Appointment Mammography/[place] [address] Ladi Mendosa MD [facility] DR [place] [address] 01/30/2024 11:30 AM EST Office Visit Dermatology at [facility] [address] [place] [address] Nilda Luis MD [facility] [place] [address] 02/14/2024 7:30 AM EST Appointment [place] [address] Joanna Watts MD [facility] [place] [place] [address] documented as of this encounter Visit Diagnoses Not on filedocumented in this encounter Care Teams Wind Up Operator Relationship Specialty Start Date End Date Trinh Coates MD [facility] [address] [address] PCP - General 01/11/10 documented as of this encounter
--- OUTSIDE RECORDS SUMMARY | 2023-09-25 11:41 | XMS_ITS | Encounter Summary ---
[place] [address] Care Team Providers Care Commercial Collector Name Role Phone Trinh Coates MD Primary Care Provider [phone] Reason for Visit * Auth/Cert (Routine) Specialty Diagnoses / Procedures Referred By Diamante marin Referred To Contact Diagnoses Headache Post-Op monitoring Procedures ER OBSVO Joanna Watts MD [facility] [place] [address] [facility] Referral ID Status Reason Start Date Expiration Date Visits Re quested Visits Authorized [id number] 1 1 Encounter Details Date Type Department Care Team (Latest Contact Info) Description 01/31/2023 10:15 PM EST - 02/01/2023 10:08 AM EST Hospital Encounter [place] [address] Joanna Watts MD [facility] [place] [place] [address] Discharge Disposition: Home Social History Tobacco Use [...] Hospital Course: Patient was admitted electively to [facility] via the same day surgery program and [...] hours (after 5pm or before 8am): Call [phone] and ask the soap drier operator to page the Neurosurgery Resident/Advanced Practice Provider parts counter salesperson. *Your surgeon may not be faculty i on call medical assistant (especially after office hours or on the weekend) so be ready totell about yourself and your surgery when you call. Neurosurgery Providers Adult Neurosurgery Dr. Curtis Colunga Pediatric Neurosurgery Dr. Arpita Jarrett Advanced Practice Providers Nallely Barry, Nurse Practitioner (outpatient telehealth) Jackie Sarmiento, Physician Jewel Lathe Operator (inpatient/outpatient: neuro-oncology) Christy Bentley, Physician Jewel Lathe Operator (inpatient) Manuel Nunez, Nurse Practitioner (outpatient: pediatric) Araceli Levi, Nurse Practitioner (outpatient: vascular) Venessa Mckeon Physician Jewel Lathe Operator (outpatient: spine) Mitch Aguilar Physician Jewel Lathe Operator (outpatient) Outpatient Nurses Rahcna Guerrero, JENNYFER Zuluaga RN General Instructions None Future Appointments and Orders Future Appointments and Orders Future Appointments Provider Department Dept Phone 02/06/2023 11:20 AM Abby Phoenix CNM Obstetrics and Gynecology at [facility] Arrive at: [facility] [phone] 07/17/2023 11:00 AM Nilda Luis MD Dermatology at [facility] Arrive at: [facility] [address] [place] [address] Scheduled Appointments: Future Appointments Date Time Provider Department Center 02/06/2023 11:20 AM Abby Phoenix CNM [facility] OBG 5L [facility] 07/17/2023 11:00 AM Nilda Luis MD [facility] Primary Care Doctor: Trinh Coates MD [phone] Signed: Erich Davis MD 02/01/2023 documented in [...] hours (after 5pm or before 8am): Call [phone] and ask the soap drier operator to page the Neurosurgery Resident/Advanced Practice Provider parts counter salesperson. *Your surgeon may not be faculty i on call medical assistant (especially after office hours or on the weekend) so be ready totell about yourself and your surgery when you call. Neurosurgery Providers Adult Neurosurgery Dr. Curtis Colunga Pediatric Neurosurgery Dr. Arpita Jarrett Advanced Practice Providers Nallely Barry, Nurse Practitioner (outpatient telehealth) Jackie Sarmiento, Physician Jewel Lathe Operator (inpatient/outpatient: neuro-oncology) Christy Bentley, Physician Jewel Lathe Operator (inpatient) Manuel Nunez, Nurse Practitioner (outpatient: pediatric) Araceli Levi, Nurse Practitioner (outpatient: vascular) Venessa Mckeon, Physician Jewel Lathe Operator (outpatient: spine) Mitch Aguilar, Physician Jewel Lathe Operator (outpatient) Outpatient Nurses Rachna uGerrero, RN Gerald Zuluaga RN documented in this [...] Ye RN - 02/01/2023 10:07 AM EST [facility] Short Stay Unit Discharge Note All [...] repeat angio in 1 year PLEASE PAGE [phone] WITH QUESTIONS Active Hospital Problems Diagnosis Headache [...] s/p flow diverting stent placement via R CASTING MACHINE OPERATOR AUTOMATIC (07/24/22; Dr. Watts) who returned 01/31/23 for surveillance DSA (via R CASTING MACHINE OPERATOR AUTOMATIC) with hypertension to 180s post-procedure s/p hydralazine [...] IR Arteriogram Cerebral 05/19/2022 Joanna Watts MD [facility] INTERVENTIONL RAD IR DRAIN CHECK/CHANGE/REMOVE 11/20/2017 IR Drain Check/Change/Remove 11/20/2017 Marcos Dey MD [facility] INTERVENTIONL RAD IR EMBOLIZATION CEREBRAL 07/24/2022 IR Embolization Cerebral 07/24/2022 Joanna Watts MD [facility] INTERVENTIONL RAD IR MEDIPORT REMOVAL 01/25/2018 IR Mediport Removal 01/25/2018 Scooby Muñoz, SURVEYING CREW RODMAN [facility] INTERVENTIONL RAD PRG EMG, LARYNX N/A 11/02/2015 FACIAL NERVE MONITORING, SETUP LARYNGEAL performed by Valentina Lucas MD at [facility] MAIN OR PRO BREAST RECONSTRUCTION IMMT/DLYD W/TISS AVIONICS SHOP SUPERVISOR SBSQ EXPANSION Bilateral 04/26/2017 BREAST RECONSTRUCTION, IMMEDIATE OR DELAYED, W/ TISSUE AVIONICS SHOP SUPERVISOR, INCLUDING SUBSEQUENT EXPANSION (WRVU 18.5) performed by Andre Gimenez MD at [facility] MAIN OR PRO BREAST RECONSTRUCTION W FREE FLAP Bilateral 04/26/2017 @BREAST RECONSTRUCTION W/ FREE FLAP, SUSAN (WRVU 42.58) performed by Andre Gimenez MD at [facility] LLOYD PRO BREAST RECONSTRUCTION W/LATSMS D/SI FLAP WO PRSTHC IMPL Bilateral 12/12/2017 @BREAST RECONSTRUCTION W/ LAT DORSI FLAP,W/O IMPLANT, SUSAN (WRVU 23.36) performed by Andre Gimenez MD at [facility] MAIN OR PRO DEBRIDEMENT SUBCUTANEOUS TISSUE 20 SQCM/< 06/22/2017 DEBRIDEMENT SKIN AND SUBCU, BREAST (WRVU 1.01) performed by Andre Gimenez MD at [facility] EXPLORE PARATHYROID GLANDS N/A 11/02/2015 PARATHYROIDECTOMY OR EXPLORATION OF PARATHYROID(S) performed by Valentina Lucas MD at [facility] FULL THICK GRFT TRUNK <20 SQCM Bilateral 04/26/2017 FTSG, FREE, DIR CLOSE DONOR SITE, TRUNK, 20 SQ CM OR LESS (WRVU 9.15) performed by Andre Gimenez MD at [facility] INCISION OF LYMPH CHANNELS Left 10/18/2018 INCISION & DRAINAGE LYMPHOCELE (WRVU 6.81) performed by Andre Gimenez MD at [facility] IV INJ TO TEST BLOOD FLOW IN FLAP/GRAFT Left 10/18/2018 IV INJECTION, AGENT TO TEST VASC FLOW IN FLAP OR GRAFT, ENT (WRVU 1.95) performed by Andre Gimenez MD at [facility] MASTECTOMY, SIMPLE, COMPLETE Bilateral 04/26/2017 MASTECTOMY, SIMPLE, COMPLETE-SUSAN (WRVU 15.85) performed by Jolie Menendez MD at [facility] PARTIAL REMOVAL OF RIB Bilateral 04/26/2017 EXCISION OF RIB, PARTIAL (WRVU 7.26) performed by Andre Gimenez MD at [facility] PERM OCCLUSION/EMBOLIZATION, PERCUT, WOUND CARE TECHNICIAN N/A 07/24/2022 @TRANSCATHETER OCCLUSION/EMBOLIZATION FOR TUMOR DESTRUCTION (WRVU 20.12) performed by Joanna Watts MD at [facility] ENRIQUE PRO REMOVE ARMPITS LYMPH NODES COMPLT Left 04/26/2017 LYMPHADENECTOMY, AXILLARY, COMPLETE (WRVU 13.87) performed by Jolie Menendez MD at [facility] OR PRO REPLACE TISSUE AVIONICS SHOP SUPERVISOR Bilateral 12/12/2017 TISSUE AVIONICS SHOP SUPERVISOR REPLACEMENT, WITH PERMANENT PROSTHESIS, SUSAN (WRVU 8.01) performed by Andre Gimenez MD at [facility] MAIN OR PRO REVISION RECONSTRUCTED BREAST Left 06/22/2017 REVISION OF RECONSTRUCTED BREAST (WRVU 10.41) performed by Andre Gimenez MD at [facility] REVISION RECONSTRUCTED BREAST Bilateral 12/12/2017 REVISION OFRECONSTRUCTED BREAST, SUSAN (WRVU 10.41) performed by Andre Gimenez MD at [facility] MAIN OR PRO THYMECTOMY, TRANSCERVICAL N/A 11/02/2015 THYMECTOMY, TRANSCERVICAL APPROACH performed by Valentina Lucas MD at [facility] MAIN OR SHOULDER SURGERY Left UMBILICAL HERNIA REPAIR Medications: Current Facility-Administered Medications on File Prior to Encounter Medication Dose Route Frequency Provider Last Rate Last Admin [COMPLETED] lidocaine (Xylocaine) 1% (10 mg/mL) injection 10 mg 10 mg Subcutaneous Once LeviAraceli castrejon SURVEYING CREW RODMAN 10 mg at 01/31/23 1513 [COMPLETED] iodixanoL (Visipaque) (320 mg/mL) injection solution 1-400 mL 1-400 mL Intra-arterial Once LeviAraceli castrejon SURVEYING CREW RODMAN 25 mL at 01/31/23 1315 [] sodium chloride 0.9% infusion 250 mL/hr Intravenous Continuous LeviAraceli castrejon APRN [] sodium chloride 0.9% infusion 100 mL/hr Intravenous Continuous LeviAraceli castrejon APRN hydrALAZINE (Apresoline) (20 mg/mL) injection 10 mg 10 mg Intravenous Q6H PRN Maximilian Sanchez MD 10 mg at 01/31/23 1632 [COMPLETED] hydrALAZINE (Apresoline) (20 mg/mL) injection 10 mg 10 mg Intravenous Once PRN Araceli Levi SURVEYING CREW RODMAN 10 mg at 01/31/23 1836 [COMPLETED] acetaminophen [...] mL Intravenous Daily PRN Araceli Levi L, SURVEYING CREW RODMAN [DISCONTINUED] fentaNYL (pf) (50 mcg/mL) multi-dose injection 25-50 mcg 25-50 mcg Intravenous Q3 Min PRN Araceli Levi, SURVEYING CREW RODMAN 50 mcg at 01/31/23 1542 [DISCONTINUED] flumazeniL (Romazicon) (0.1 mg/mL) injection 0.2 mg 0.2 mg Intravenous Q2 Min PRN LeviAraceli castrejon, SURVEYING CREW RODMAN [DISCONTINUED] naloxone (NARCAN) injection 1 mg/mL 0.1 mg 0.1 mg Intravenous Q2 Min PRN Levi, Araceli Leach, SURVEYING CREW RODMAN [DISCONTINUED] midazolam (pf) (Versed) (1 mg/mL) multi-dose injection 0.5-1 mg 0.5-1 mg IntravenousQ3 Min PRN Araceli Levi, SURVEYING CREW RODMAN 0.5 mg at 01/31/23 1542 [DISCONTINUED] sodium chloride 0.9% infusion 1,000 mL Intravenous Continuous LeviAraceli castrejon SURVEYING CREW RODMAN 100 mL/hr at 01/31/23 1428 1,000 mL at 01/31/23 1428 [DISCONTINUED] nitroGLYcerin 100 mcg/mL intracoronary dilution 200 mcg 200 mcg Intra-arterial Once LeviAraceli, SURVEYING CREW RODMAN [DISCONTINUED] verapamiL (Isoptin) (2.5 mg/mL) injection 2.5 mg 2.5 mg Intra- arterial Once Levi, Araceli Leach SURVEYING CREW RODMAN [DISCONTINUED] heparin (porcine) (1,000 units/mL) injection 3,000 Units 3,000 Units Intra-arterial Once LeviAraceli SURVEYING CREW RODMAN [DISCONTINUED] ondansetron (pf) (Zofran) (2 mg/mL) injection 4 mg 4 mg Intravenous Once PRN Levi,Araceli Leach SURVEYING CREW RODMAN [DISCONTINUED] sodium chloride 0.9 % (flush) (BD PosiFlush Normal Saline 0.9) flush 5 mL 5 mL Intravenous BID LeviAraceli SURVEYING CREW RODMAN [DISCONTINUED] sodium chloride 0.9 % (flush) (BD PosiFlush Normal Saline 0.9) flush 5-20 mL 5-20 mLIntravenous Q1 Min PRN Levi, Araceli Leach SURVEYING CREW RODMAN [DISCONTINUED] lidocaine (Xylocaine) 1% (10 mg/mL) injection 3 mg 0.3 mL Subcutaneous Once PRN Levi, Araceli L, SURVEYING CREW RODMAN [DISCONTINUED] sodium chloride 0.9 % (flush) (BD PosiFlush Normal Saline 0.9) flush 10 mL 10 mL Intravenous Daily PRN Levi, Araceli L, SURVEYING CREW RODMAN [DISCONTINUED] fentaNYL (pf) (50 mcg/mL) multi-dose injection 25-50 mcg 25-50 mcg Intravenous Q3 Min PRN Levi, Araceli L, SURVEYING CREW RODMAN [DISCONTINUED] flumazeniL (Romazicon) (0.1 mg/mL) injection 0.2 mg 0.2 mg Intravenous Q2 Min PRN Levi, Araceli L, SURVEYING CREW RODMAN [DISCONTINUED] naloxone (NARCAN) injection 1 mg/mL 0.1 mg 0.1 mg Intravenous Q2 Min PRN Levi, Araceli L, SURVEYING CREW RODMAN [DISCONTINUED] midazolam (pf) (Versed) (1 mg/mL) multi-dose injection 0.5-1 mg 0.5-1 mg IntravenousQ3 Min PRN Levi, Araceli L, SURVEYING CREW RODMAN [DISCONTINUED] ondansetron (pf) (Zofran) (2 mg/mL) injection 4 mg 4 mg Intravenous Once PRN Levi,Araceli L, SURVEYING CREW RODMAN [DISCONTINUED] sodium chloride 0.9% infusion 100 mL/hr Intravenous Continuous Levi, Araceli L, SURVEYING CREW RODMAN [DISCONTINUED] sodium chloride 0.9 % (flush) (BD [...] Watts MD - 02/05/2023 8:51 PM EST I, Joanna Watts, discussed the patient with the resident/ASHTYN team and personally reviewed the imaging. Suspect post-contrast headache and flat time related neck discomfort. Low suspicion for othermore serious etiologies of headache at this time, particularly given patient had not received any pain control, including Tylenol, at the time of evaluation. Plan to monitor closely. Joanna aWtts MD Open cerebrovascular and endovascular neurosurgery attending documented in this encounter Miscellaneous Notes * Care Management - Shayna Hutson RN - 02/01/2023 10:08 AM EST Hospital Course: Patient was admitted electively to [facility] via the same day surgery program and [...] 01/22/2024 10:30 AM EST Appointment Mammography/[place] [phone] aLdi Mendosa MD [facility] [place] [address] 01/30/2024 11:30 AM EST Office Visit Dermatology at [address] [place] [id number] Nilda Luis MD [facility] [place] [address] 02/14/2024 7:30 AM EST Appointment Radiology at [facility] [place] [phone] Joanna Watts MD [facility] [place] [place] [address] documented as of this encounter Procedures Procedure Name Priority Date/Time Associated Diagnosis Comments HEMOGRAM Routine 02/01/2023 2:45 AM EST DIFFERENTIAL, AUTOMATED Routine 02/01/2023 2:45 AM EST CBC (WITH DIFF) Routine 02/01/2023 2:45 AM EST BASIC METABOLIC PANEL Routine 02/01/2023 2:45 AM EST documented in this encounter Results * (ABNORMAL) Differential, Automated (02/01/2023 2:45 AM EST) Neutrophil % 62.8 % [facility] Neutrophil Absolute 5.62 1.70 - 6.10 x10(3)/mc L [facility] Lymph % 20.2 % [facility] Lymphocytes Abs 1.8 0.9 - 3.2 x10(3)/mc L [facility] Monocyte % 10.9 % [facility] Monocyte Abs 1.0(H) 0.3 - 0.9 x10(3)/mc L [facility] Eos % 4.0 % [facility] Eosinophils Abs 0.4 0.0 - 0.4 x10(3)/mc L [facility] Basophil % 1.5 % [facility] Baso Absolute 0.1 0.0 - 0.1 x10(3)/mc L [facility] Immature Gran % 0.60 % [facility] Comment: Immature granulocytes(IG's)percentage and absolute count will include metamyelocytes, myelocytes, and promyelocytes. Blood smears from CBCs yielding IG's will be scanned manually for concordance. If this scan disagrees with the automated IG or if promyelocytes are noted, a manual differential will be performed. Immature Gran Absolute 0.05(H) 0.00 - 0.04 x10(3)/mc L [facility] Blood 02/01/2023 2:45 AM EST 02/01/2023 2:56 AM EST Narrative Resulting Agency Comment Spec In Lab Marilin Patel MD HEMATOLOGY ORDERAB LES [facility] [place] [address] * (ABNORMAL) Hemogram (02/01/2023 2:45 AM EST) White Blood Cell 9.0 4.0 - 9.5 x10(3)/mc L [facility] Red Blood Cell 3.78(L) 4.00 - 5.21 x10(6)/mc L [facility] Hemoglobin 12.1 11.7 - 15.5 g/dL [facility] Hematocrit 36.2 35.7 - 45.8 % [facility] Mean Cell Volume 95.8(H) 82.6 - 94.4 fL [facility] Mean Cell Hemoglobin 32.0 27.1 - 32.0 pg [facility] Mean Cell Hemoglobin Concentration 33.4 31.7 - 35.0 g/dL [facility] Platelet 332 145 - 357 x10(3)/mc L [facility] RDW Standard Deviation 49.1(H) 37.0 - 46.0 fL [facility] RDW coefficient of variation 13.8 11.5 - 14.1 % [facility] Mean Platelet Volume 8.8 7.6 - 12.9 fL [facility] NRBC% auto 0.0 % [facility] NRBC Absolute 0.000 0.000 - 0.000 x10(3)/mc L [facility] Blood 02/01/2023 2:45 AM EST 02/01/2023 2:56 AM EST Narrative Resulting Agency Comment Spec In Lab Marilin Patel MD HEMATOLOGY ORDERAB LES [facility] [place] [address] * (ABNORMAL) Basic Metabolic Panel (non-fasting) (02/01/2023 2:45 AM EST) Glucose 79 65 - 199 mg/dL [facility] Comment:Diabetes: >=200 mg/d L plus symptoms Blood Urea Nitrogen 32(H) 8 - 18 mg/dL [facility] Creatinine 1.63(H) 0.70 - 1.20 mg/dL [facility] Sodium 138 135 - 145 mmol/L [facility] Potassium 4.3 3.5 - 5.0 mmol/L [facility] Comment: Please note: ??Patients with WBC >100,000 may have falsely elevated Potassium levels. ??For accurate Potassium quantification in these patients send serum separator tube (gold top) for subsequent determinations. ??Contact the Clinical Chemistry Laboratory if there are any questions. Chloride 108(H) 98 - 107 mmol/L [facility] Carbon Dioxide 22 22 - 31 mmol/L [facility] Anion Gap 8 5 - 15 mmol/L [facility] Calcium 8.6 8.5 - 10.5 mg/dL [facility] Est Glomerular Filtration Rate 36(L) >=60 mL/min/1. 73 m?? [facility] Comment: This patient's estimated [...] Lab Joanna Watts MD CHEMISTRY ORDERABLE S [facility] [place] [address] documented in this encounter Visit Diagnoses Diagnosis [...] Oral, EVERY OTHER DAY, First dose on Sosa 02/01/23 at 0900, Until Discontinued Given 02/01/2023 8:36 AM EST 500 mg cholecalciferol (Vitamin D3) tablet 5,000 Units 5,000 Units, Oral, DAILY, First dose on Sosa 02/01/23 [...] Sosa 02/01/23 at 0900, Until Discontinued, Routine 0840 (Given - Provid er: Flip Ye RN) calcium carbonate (TUMS) chewable tablet 500 mg 500 mg, Oral, EVERY OTHER DAY, First dose on Sosa 02/01/23 at 0900, Until Discontinued 0836 (Given - Provid er: Flip Ye RN) cholecalciferol (Vitamin D3) tablet 5,000 Units 5,000 Units, Oral, DAILY, First dose on Sosa 02/01/23 at 0900, Until Discontinued, Routine 0836 (Given [...] 30mg toradol IV and page provider., Routine 2309 (Given - Provider: Jacqueline Mcfarlane RN) ferrous gluconate (Ferate) tablet 324 mg 324 mg, Oral, DAILY, First dose on Sun02/01/23 at 0900, Until Discontinued 08 (Given - Provid er: Flip Ye RN) FLUoxetine (PROzac) capsule 40 mg 40 mg, Oral, DAILY, First dose on Sun02/01/23 at 0900, Until Discontinued, Routine 08 (Given - Provid er: Flip Ye RN) gabapentin (Neurontin) capsule 300 mg(Linked Group 2) 300 mg, Oral, EVERY MORNING, First dose on Sun02/01/23 at 0700, Until Discontinued, Routine 06 (Given - Provid er: Jacqueline Mcfarlane RN) gabapentin (Neurontin) capsule 600 mg(Linked Group 2) 600 mg, Oral, NIGHTLY, First dose on Sun01/31/23 at 2315, Until Discontinued, Routine 2241 (Given - Provider: Jacqueline Mcfarlane RN) losartan [...] 30mg toradol IV and page provider., Routine 231 (Given - Provider: Jacqueline Mcfarlane RN) rosuvastatin (Crestor) tablet 10 mg 10 mg, Oral, NIGHTLY, First dose on Sun01/31/23 at 2315, Until Discontinued, Routine 2241 (Given - Provider: Jacqueline Mcfarlane RN) senna-docusate (Pericolace) 8.6-50 mg per tablet 2 tablet 2 tablet, Oral, 2 TIMES DAILY, First dose on Sun01/31/23 at 2315, Until Discontinued, Hold for loose stool. , Routine 2315 (Not Given - Provider: Jacqueline Mcfarlane RN - Reason: Patient/family refused) 0900 (Not Given - Provider: Flip Ye RN - Reason: Patient/family refused) sodium chloride 0.9 % (flush) (BD PosiFlush Normal Saline 0.9) flush 5 mL 5 mL, Intravenous, 2 TIMES DAILY, First dose on Sun01/31/23 at 2315, Until Discontinued, Recovery (Recovery-Hospital Unit), Routine 2248 (Given - Provider: Jacqueline Mcfarlane RN) 0842 (Given - Provider: Flip Ye RN) sodium chloride 0.9% 1,000 mL IV bolus (COMPLETED) Intravenous, ONCE, 1 dose, On Sun01/31/23 at 2345 2310 (New Bag - Provider: Jacqueline Mcfarlane RN) spironolactone (Aldactone) tablet 25 mg 25 mg, Oral, DAILY, First dose on Ssoa 02/01/23 at 0900, Until Discontinued, DO NOT [...] on Sun02/01/23 at 0700, Until Discontinued, Routine And gabapentin (Neurontin) capsule 600 mgJump to med 600 mg, Oral, NIGHTLY, First dose on Sun01/31/23 at 2315, Until Discontinued, Routine Group 3: ondansetron (Zofran) tablet 4 mgJump to med 4 mg, Oral, EVERY 8 HOURS PRN, Starting on Sun01/31/23 at 2215, Until Sun02/01/23 at 1209, Nausea, Vomiting, If multiple antiemetics [...] hours documented in this encounter Care Teams Commercial Collector Relationship Specialty Start Date End Date Trinh Coates MD [address] [place] [address] PCP - General 01/11/10 documented as of this encounter
--- OUTSIDE RECORDS SUMMARY | 2023-09-25 11:41 | XMS_ITS | Encounter Summary ---
Author Organization [facility] Address [facility] [place] [address] Care Team Providers Care Farm Supervisor Name Role Phone Trinh Coates MD Primary Care Provider [phone] Encounter Details Date Type Department Care Team [...] 01/22/2024 10:30 AM EST Appointment Mammography/[place] [address] Ladi Mendosa MD [facility] [place] [address] 01/30/2024 11:30 AM EST Office Visit Dermatology at [facility] [address] [place] [phone] Nilda Luis MD [facility] [address] 02/14/2024 7:30 AM EST [place] [address] Joanna Watts MD [facility] [address] documented as of this encounter Visit Diagnoses Not on filedocumented in this encounter Care Teams Farm Supervisor Relationship Specialty Start Date End Date Trinh Coates MD [facility] [address] [address] PCP - General 01/11/10 documented as of this encounter
--- OUTSIDE RECORDS SUMMARY | 2023-09-25 11:41 | XMS_ITS | Encounter Summary ---
Author Organization [facility] Address [facility] [place] [address] Care Team Providers Care Candle Pourer Name Role Phone Trinh Coates MD Primary Care Provider [phone] Reason for Visit * Reason Comments Follow-up Encounter Details Date Type Department Care Team (Late st Contact Info) Description 01/02/2023 9:00 AM EST Office Visit Hematology [place] [address] Ladi Mendosa MD [facility] [address] [place] [address] Malignant neoplasm of upper-outer quadrant of left [...] in March 2017. 2.0 cm cancer, high-grade. ER/MI +++, HER-2/pat negative, 4/18 nodes (1/18 additional [...] her mother's side. Oct 2017 Genetic testing: [employer] Common Hereditary Cancers Panel showed no mutation was detected. This means that Wendy does not carry a mutation in the genes detectable by this test. The following genes were evaluated for sequence changes and exonic deletions/duplications: APC, AMAURY, AXIN2, BARD1, BMPR1A, BRCA1, BRCA2, BRIP1, CDH1, CDKN2A (p14ARF), CDKN2A (b20SCD6m), CHEK2, CTNNA1, DICER1, EPCAM (EPCAM: Deletion/duplication testing only ([id number]), GREM1 (GREM1: Promoter region deletion/duplication testing only.), KIT, MEN1, MLH1, MSH2, MSH3, MSH6, MUTYH, NBN, NF1, PALB2, PDGFRA, PMS2, POLD1, POLE, PTEN, RAD50, RAD51C, RAD51D, SDHB, SDHC, SDHD, SMAD4, SMARCA4, STK11, TP53, TSC1, TSC 2, VHL. The following genes were evaluated for sequence changes only: HOXB13 (c.251G>A, p.Jhe04Arl variant only), NTHL1 (NTHL1: Deletion/duplication analysis is not offered for this gene ([id number]), and SDHA. A variant of uncertain significance in the AMAURY gene, specifically c.5727G>A (p.[id number]), was detected. Exam Visit Vitals Last value [...] with a high-grade, node-positive left breast cancer ER+/MI+/HER2-. She is s/p bilateral mastectomy, completed adjuvant [...] 01/22/2024 10:30 AM EST Appointment Mammography/DXA at [place] [phone] Ladi Mendosa MD [facility] [place] [address] 01/30/2024 11:30 AM EST Office Visit Dermatology at [address] [address] Nilda Luis MD [facility] [place] [address] 02/14/2024 7:30 AM EST Appointment Radiology at [place] [phone] Joanna Watts MD [facility] [place] [address] Scheduled Orders Name Type Priority Associated Diagnoses [...] positive documented in this encounter Care Teams Candle Pourer Relationship Specialty Start Date End Date Trinh Coates MD [address] [place] [address] PCP - General 01/11/10 documented as of this encounter
--- OUTSIDE RECORDS SUMMARY | 2023-09-25 11:41 | XMS_ITS | Encounter Summary ---
Author Organization [facility] [place] [address] Care Team Providers Care Agency Owner Name Role Phone Trinh Coates MD Primary Care Provider [phone] Reason for Referral * Diagnostic Test (Routine) - Closed Specialty Diagnoses / Procedures Referred By Diamante marin Referred To Contact Radiology Diagnoses Abdominal pain, unspecified abdominal location Procedures CT Guided Aspiration Muscle Soft Tissue Juan Kat PA [facility] [place] [address] [facility] [place] [address] Referral ID Status Reason Start Date Expiration Date V isits Requested Visits Authorized [id number] Closed Specialty Service Requested 05/22/2023 11/20/2024 1 1 Encounter Details Date Type Department Care Team (Late st Contact Info) Description 05/22/2023 [place] [address] Juan Kat PA [facility] DR [place] [address] Social History Tobacco Use Types [...] included. Interventional Radiology Focused Pre-procedure H&P: PCP: Trinh Coates MD Procedure indication: Abdominal pain, enhancing right psoas lesion on MRI IR workflow: Interventional Radiology Service contacted by [facility] at 1140 regarding the procedure [...] s/p flow diverting stent placement via R SENIOR BILLING CONSULTANT (07/24/22;Dr. Watts) who presented to OSH yesterday [...] IR Arteriogram Cerebral 05/19/2022 Joanna Watts MD [facility] INTERVENTIONL RAD IR ARTERIOGRAM CEREBRAL 01/31/2023 IR Arteriogram Cerebral 01/31/2023 Joanna Watts MD [facility] INTERVENTIONL RAD IR DRAIN CHECK/CHANGE/REMOVE 11/20/2017 IR Drain Check/Change/Remove 11/20/2017 Marcos Dey MD [facility] INTERVENTIONL RAD IR EMBOLIZATION CEREBRAL 07/24/2022 IR Embolization Cerebral 07/24/2022 Joanna Watts MD [facility] INTERVENTIONL RAD IR MEDIPORT REMOVAL 01/25/2018 IR Mediport Removal 01/25/2018 Scooby Muñoz APRN [facility] INTERVENTIONL RAD PRG EMG, LARYNX N/A 11/02/2015 FACIAL NERVE MONITORING, SETUP LARYNGEAL performed by Valentina Lucas MD at [facility] MAIN OR PRO BREAST RECONSTRUCTION IMMT/DLYD W/TISS OCTAVE BOARD ASSEMBLER SBSQ EXPANSION Bilateral 04/26/2017 BREAST RECONSTRUCTION, IMMEDIATE OR DELAYED, W/ TISSUE OCTAVE BOARD ASSEMBLER, INCLUDING SUBSEQUENT EXPANSION (WRVU 18.5) performed by Andre Gimenez MD at [facility] OR PRO BREAST RECONSTRUCTION W FREE FLAP Bilateral 04/26/2017 @BREAST RECONSTRUCTION W/ FREE FLAP, SUSAN (WRVU 42.58) performed by Andre Gimenez MD at [facility] LLOYD PRO BREAST RECONSTRUCTION W/LATSMS D/SI FLAP WO PRSTHC IMPL Bilateral 12/12/2017 @BREAST RECONSTRUCTION W/ LAT DORSI FLAP,W/O IMPLANT, SUSAN (WRVU 23.36) performed by Andre Gimenez MD at [facility] OR [facility] DEBRIDEMENT SUBCUTANEOUS TISSUE 20 SQCM/< 06/22/2017 DEBRIDEMENT SKIN AND SUBCU, BREAST (WRVU 1.01) performed by Andre Gimenez MD at [facility] OR [facility] EXPLORE PARATHYROID GLANDS N/A 11/02/2015 PARATHYROIDECTOMY OR EXPLORATION OF PARATHYROID(S) performed by Valentina Lucas MD at [facility] OR [facility] FULL THICK GRFT TRUNK <20 SQCM Bilateral 04/26/2017 FTSG, FREE, DIR CLOSE DONOR SITE, TRUNK, 20 SQ CM OR LESS (WRVU 9.15) performed by Andre Gimenez MD at [facility] OR [facility] INCISION OF LYMPH CHANNELS Left 10/18/2018 INCISION & DRAINAGE LYMPHOCELE (WRVU 6.81) performed by Andre Gimenez MD at [facility] OR [facility] IV INJ TO TEST BLOOD FLOW IN FLAP/GRAFT Left 10/18/2018 IV INJECTION, AGENT TO TEST VASC FLOW IN FLAP OR GRAFT, ENT (WRVU 1.95) performed by Andre Gimenez MD at [facility] OR PRO MASTECTOMY, SIMPLE, COMPLETE Bilateral 04/26/2017 MASTECTOMY, SIMPLE, COMPLETE-SUSAN (WRVU 15.85) performed by Jolie Menendez MD at [facility] OR [facility] PARTIAL REMOVAL OF RIB Bilateral 04/26/2017 EXCISION OF RIB, PARTIAL (WRVU 7.26) performed by Andre Gimenez MD at [facility] OR [facility] PERM OCCLUSION/EMBOLIZATION, PERCUT, PEDIATRIC CLINICAL DIETICIAN N/A 07/24/2022 @TRANSCATHETER OCCLUSION/EMBOLIZATION FOR TUMOR DESTRUCTION (WRVU 20.12) performed by Joanna Watts MD at [facility] ENRIQUE PRO REMOVE ARMPITS LYMPH NODES COMPLT Left 04/26/2017 LYMPHADENECTOMY, AXILLARY, COMPLETE (WRVU 13.87) performed by Jolie Menendez MD at [facility] MAIN OR PRO REPLACE TISSUE OCTAVE BOARD ASSEMBLER Bilateral 12/12/2017 TISSUE OCTAVE BOARD ASSEMBLER REPLACEMENT, WITH PERMANENT PROSTHESIS, SUSAN (WRVU 8.01) performed by Andre Gimenez MD at [facility] MAIN OR PRO REVISION RECONSTRUCTED BREAST Left 06/22/2017 REVISION OF RECONSTRUCTED BREAST (WRVU 10.41) performed by Andre Gimenez MD at [facility] MAIN OR PRO REVISION RECONSTRUCTED BREAST Bilateral 12/12/2017 REVISION OFRECONSTRUCTED BREAST, SUSAN (WRVU 10.41) performed by Andre Gimenez MD at [facility] MAIN OR PRO THYMECTOMY, TRANSCERVICAL N/A 11/02/2015 THYMECTOMY, TRANSCERVICAL APPROACH performed by Valentina Lucas MD at [facility] MAIN OR SHOULDER SURGERY Left UMBILICAL [...] 01/22/2024 10:30 AM EST Appointment Mammography/[place] [address] Ladi Mendosa MD [facility] HEMATOLOGY [place] [address] 01/30/2024 11:30 AM EST Office Visit Dermatology at [facility] [address] [place] [address] Nilda Luis MD [facility] [place] [address] 02/14/2024 7:30 AM [place] [phone] Joanna Watts MD [facility] [place] [address] documented as of this encounter Results * [...] location documented in this encounter Care Teams Agency Owner Relationship Specialty Start Date End Date Trinh Coates MD [address] [place] [address] PCP - General 01/11/10 documented as of this encounter
--- OUTSIDE RECORDS SUMMARY | 2023-09-25 11:41 | XMS_ITS | Encounter Summary ---
Author Organization [facility] [place] [address] Care Team Providers Care Safety Investigator/Cause Analyst Name Role Phone Trinh Coates MD Primary Care Provider Reason for Referral * Diagnostic Test (Routine) - New Request Specialty Diagnoses / Procedures Referred By Diamante marin Referred To Contact Radiology Diagnoses Right internal carotid artery aneurysm Procedures IR Arteriogram Cerebral Joanna Watts MD [facility] [place] [address] [place] [address] Referral ID Status Reason Start Date Expiration Date Visits Requested Visits Authorized [id number] New Request Specialty Service Requested 3 08/07/2024 1 1 Encounter Details Date Type Department Care Team (Late st Contact Info) Description 02/06/2023 Orders [place] [address] Joanna Watts MD [facility] [address] 4mm AXEL aneurysm - likely [...] 01/22/2024 10:30 AM EST Appointment Mammography/[place] [address] Ladi Mendosa MD [facility] [place] [address] 01/30/2024 11:30 AM EST Office Visit Dermatology at [place] [address] [place] [address] Nilda Luis MD [facility] [place] [address] 02/14/2024 7:30 AM EST [place] [phone] Joanna Watts MD [facility] [place] [address] Scheduled Orders Name Type Priority Associated Diagnoses Orde r Schedule IR Arteriogram Cerebral Imaging Routine 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
--- OUTSIDE RECORDS SUMMARY | 2023-09-25 11:41 | XMS_ITS | Encounter Summary ---
Author Organization [facility] Address [facility] [place] [address] Care Team Providers Care Urologic Nurse Name Role Phone Trinh Coates MD Primary Care Provider [phone] Encounter Details Date Type Department Care Team (Late st Contact Info) Description 02/06/2023 [place] [phone] Joanna Watts MD [facility] [place] [address] Social History Tobacco Use Types Packs/Day Years [...] 01/22/2024 10:30 AM EST Appointment Mammography/[place] [phone] Ladi Mendosa MD [facility] HEMATOLOGY [place] [address] 01/30/2024 11:30 AM EST Office Visit Dermatology at [place] [address] [place] [phone] Nilda Luis MD [facility] [place] [address] 02/14/2024 7:30 AM [place] [address] Joanna Watts MD [facility] [place] [address] documented as of this encounter Visit Diagnoses Not on filedocumented in this encounter Care Teams Urologic Nurse Relationship Specialty Start Date End Date Trinh Coates MD [facility] [address] [place] [address] PCP - General 01/11/10 documented as of this encounter
--- OUTSIDE RECORDS SUMMARY | 2023-09-25 11:41 | XMS_ITS | Encounter Summary ---
Author Organization [facility] Address [facility] [place] [address] Care Team Providers Care Gun Repair Clerk Name Role Phone Trinh Coates MD Primary Care Provider [phone] Encounter Details Date Type Department Care Team (Late st Contact Info) Description 11/08/2022 2:00 PM EDT Office [place] [address] [facility] [place] [address] Right internal carotid artery aneurysm Social History [...] IR Arteriogram Cerebral 05/19/[address] [facility] INTERVENTIONL RAD IR DRAIN CHECK/CHANGE/REMOVE 11/20/2017 IR Drain Check/Change/Remove 11/20/[address] [facility] INTERVENTIONL RAD IR EMBOLIZATION CEREBRAL 07/24/2022 IR Embolization Cerebral 07/24/[address] [facility] INTERVENTIONL RAD IR MEDIPORT REMOVAL 01/25/2018 IR Mediport Removal 01/25/2018 Scooby Muñoz, COMMERCIAL RELIEF DRIVER [facility] INTERVENTIONL RAD PRG EMG, LARYNX N/A 11/02/2015 FACIAL NERVE MONITORING, SETUP LARYNGEAL performed by Valentina Lucas MD at [facility] MAIN OR PRO BREAST RECONSTRUCTION IMMT/DLYD W/TISS OCCUPANCY SPECIALIST SBSQ EXPANSION Bilateral 04/26/2017 BREAST RECONSTRUCTION, IMMEDIATE OR DELAYED, W/ TISSUE OCCUPANCY SPECIALIST, INCLUDING SUBSEQUENT EXPANSION (WRVU 18.5) performed by Andre Gimenez MD at [facility] OR PRO BREAST RECONSTRUCTION W FREE FLAP Bilateral 04/26/2017 @BREAST RECONSTRUCTION W/ FREE FLAP, SUSAN (WRVU 42.58) performed by Andre Gimenez MD at [facility] L[place]YD PRO BREAST RECONSTRUCTION W/LATSMS D/SI FLAP WO PRSTHC IMPL Bilateral 12/12/2017 @BREAST RECONSTRUCTION W/ LAT DORSI FLAP,W/O IMPLANT, SUSAN (WRVU 23.36) performed by Andre Gimenez MD at [facility] OR [facility] DEBRIDEMENT SUBCUTANEOUS TISSUE 20 SQCM/< 06/22/2017 DEBRIDEMENT SKIN AND SUBCU, BREAST (WRVU 1.01) performed by Andre Gimenez MD at [facility] OR [facility] EXPLORE PARATHYROID GLANDS N/A 11/02/2015 PARATHYROIDECTOMY OR EXPLORATION OF PARATHYROID(S) performed by Valentina Lucas MD at [facility] OR [facility] FULL THICK GRFT TRUNK <20 SQCM Bilateral 04/26/2017 FTSG, FREE, DIR CLOSE DONOR SITE, TRUNK, 20 SQ CM OR LESS (WRVU 9.15) performed by Andre Gimenez MD at [facility] OR [facility] INCISION OF LYMPH CHANNELS Left 10/18/2018 INCISION & DRAINAGE LYMPHOCELE (WRVU 6.81) performed by Andre Gimenez MD at [facility] OR [facility] IV INJ TO TEST BLOOD FLOW IN FLAP/GRAFT Left 10/18/2018 IV INJECTION, AGENT TO TEST VASC FLOW IN FLAP OR GRAFT, ENT (WRVU 1.95) performed by Andre Gimenez MD at [facility] OR PRO MASTECTOMY, SIMPLE, COMPLETE Bilateral 04/26/2017 MASTECTOMY, SIMPLE, COMPLETE-SUSAN (WRVU 15.85) performed by Jolie Menendez MD at [facility] OR PRO PARTIAL REMOVAL OF RIB Bilateral 04/26/2017 EXCISION OF RIB, PARTIAL (WRVU 7.26) performed by Andre Gimenez MD at [facility] OR PRO PERM OCCLUSION/EMBOLIZATION, PERCUT, MATERIAL DAMAGE ADJUSTER N/A 07/24/2022 @TRANSCATHETER OCCLUSION/EMBOLIZATION FOR TUMOR DESTRUCTION (WRVU 20.12) performed by Joanna Watts MD at [facility] ENRIQUE PRO REMOVE ARMPITS LYMPH NODES COMPLT Left 04/26/2017 LYMPHADENECTOMY, AXILLARY, COMPLETE (WRVU 13.87) performed by Jolie Menendez MD at [facility] MAIN OR PRO REPLACE TISSUE OCCUPANCY SPECIALIST Bilateral 12/12/2017 TISSUE OCCUPANCY SPECIALIST REPLACEMENT, WITH PERMANENT PROSTHESIS, SUSAN (WRVU 8.01) performed by Andre Gimenez MD at [facility] MAIN OR PRO REVISION RECONSTRUCTED BREAST Left 06/22/2017 REVISION OF RECONSTRUCTED BREAST (WRVU 10.41) performed by Andre Gimenez MD at [facility] MAIN OR PRO REVISION RECONSTRUCTED BREAST Bilateral 12/12/2017 REVISION OFRECONSTRUCTED BREAST, SUSAN (WRVU 10.41) performed by Andre Gimenez MD at [facility] MAIN OR PRO THYMECTOMY, TRANSCERVICAL N/A 11/02/2015 THYMECTOMY, TRANSCERVICAL APPROACH performed by Valentina Lucas MD at [facility] MAIN OR SHOULDER SURGERY Left [...] of Neurosurgery Department of Surgery [facility] documented in this encounter Plan of Treatment Upcoming Encounters Date Type Department Care Team (Late st Contact Info) Description 01/22/2024 10:30 AM EST Appointment Mammography/[place] [phone] Ladi Mendosa MD [facility] DR HEMATOLOGY [place] [address] 01/30/2024 11:30 AM EST Office Visit Dermatology at [address] [phone] Nilda Luis MD [facility] [place] [address] 02/14/2024 7:30 AM EST [place] [phone] Joanna Watts MD [facility] [place] [address] documented as of this encounter Visit Diagnoses Diagnosis Right internal carotid artery aneurysm Cerebral aneurysm, nonruptured documented in this encounter Care Teams Gun Repair Clerk Relationship Specialty Start Date End Date Trinh Coates MD [facility] [address] [place] [address] PCP - General 01/11/10 documented as of this encounter
--- OUTSIDE RECORDS SUMMARY | 2023-09-25 11:41 | XMS_ITS | Encounter Summary ---
Author Organization [facility] Address [facility] [place] [address] Care Team Providers Care Beehive Kiln Charcoal Burner Name Role Phone Trinh Coates MD Primary Care Provider [phone] Reason for Visit * Reason Comments Annual Exam Encounter Details Date Type Department Care Team (Late st Contact Info) Description 11/10/2022 10:40 AM EDT Office Visit Obstetrics [place] [address] [address] [facility] [address] [facility] [place] [address] Irritation of vulva; Cervical cancer screening; Vaginal [...] file. postmenopausal female who presents for annual RN ENDOSCOPY exam. Wendy Sandoval would like to discuss today: needs a pap; also has been having some pain with urination or a different sensation she had a CT with contrast earlier this week Med hx significant for: Breast cancer survivor- currently taking Exemestane R ICA Aneurysm- doing well, on ASA and Plavix Steeplechase Jockey Health Maintenance: - Menopausal at age: early [...] time ago - Pregnancies: - Deliveries: - RN ENDOSCOPY surgeries: just 2 c-sections - Hx of Polyps or Fibroids: n - Hx of DVT/Blood clot:NO Sexual Health: - Currently having sex of any kind? 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 declined - Sexual questions/concerns: vaginal dryness Steeplechase Jockey Focused ROS (bold indicates positive): - Breast [...] IR Arteriogram Cerebral 05/19/2022 Joanna Watts MD [facility] INTERVENTIONL RAD IR DRAIN CHECK/CHANGE/REMOVE 11/20/2017 IR Drain Check/Change/Remove 11/20/2017 Marcos Dey MD [facility] INTERVENTIONL RAD IR EMBOLIZATION CEREBRAL 07/24/2022 IR Embolization Cerebral 07/24/2022 Joanna Watts MD [facility] INTERVENTIONL RAD IR MEDIPORT REMOVAL 01/25/2018 IR Mediport Removal 01/25/2018 Scooby Muñoz R, GLAZE MAKER [facility] INTERVENTIONL RAD PRG EMG, LARYNX N/A 11/02/2015 FACIAL NERVE MONITORING, SETUP LARYNGEAL performed by Valentina Lucas MD at [facility] MAIN OR PRO BREAST RECONSTRUCTION IMMT/DLYD W/TISS SAP PI ARCHITECT SBSQ EXPANSION Bilateral 04/26/2017 BREAST RECONSTRUCTION, IMMEDIATE OR DELAYED, W/ TISSUE SAP PI ARCHITECT, INCLUDING SUBSEQUENT EXPANSION (WRVU 18.5) performed by Andre Gimenez MD at [facility] MAIN OR PRO BREAST RECONSTRUCTION W FREE FLAP Bilateral 04/26/2017 @BREAST RECONSTRUCTION W/ FREE FLAP, SUSAN (WRVU 42.58) performed by Andre Gimenez MD at [facility] LLOYD PRO BREAST RECONSTRUCTION W/LATSMS D/SI FLAP WO PRSTHC IMPL Bilateral 12/12/2017 @BREAST RECONSTRUCTION W/ LAT DORSI FLAP,W/O IMPLANT, SUSAN (WRVU 23.36) performed by Andre Gimenez MD at [facility] MAIN OR PRO DEBRIDEMENT SUBCUTANEOUS TISSUE 20 SQCM/< 06/22/2017 DEBRIDEMENT SKIN AND SUBCU, BREAST (WRVU 1.01) performed by Andre Gimenez MD at [facility] EXPLORE PARATHYROID GLANDS N/A 11/02/2015 PARATHYROIDECTOMY OR EXPLORATION OF PARATHYROID(S) performed by Valentina Lucas MD at [facility] FULL THICK GRFT TRUNK <20 SQCM Bilateral 04/26/2017 FTSG, FREE, DIR CLOSE DONOR SITE, TRUNK, 20 SQ CM OR LESS (WRVU 9.15) performed by Andre Gimenez MD at [facility] INCISION OF LYMPH CHANNELS Left 10/18/2018 INCISION & DRAINAGE LYMPHOCELE (WRVU 6.81) performed by Andre Gimenez MD at [facility] IV INJ TO TEST BLOOD FLOW IN FLAP/GRAFT Left 10/18/2018 IV INJECTION, AGENT TO TEST VASC FLOW IN FLAP OR GRAFT, ENT (WRVU 1.95) performed by Andre Gimenez MD at [facility] MASTECTOMY, SIMPLE, COMPLETE Bilateral 04/26/2017 MASTECTOMY, SIMPLE, COMPLETE-SUSAN (WRVU 15.85) performed by Jolie Menendez MD at [facility] PARTIAL REMOVAL OF RIB Bilateral 04/26/2017 EXCISION OF RIB, PARTIAL (WRVU 7.26) performed by Andre Gimenez MD at [facility] PERM OCCLUSION/EMBOLIZATION, PERCUT, APPLICATIONS INTERN N/A 07/24/2022 @TRANSCATHETER OCCLUSION/EMBOLIZATION FOR TUMOR DESTRUCTION (WRVU 20.12) performed by Joanna Watts MD at [facility] ENRIQUE PRO REMOVE ARMPITS LYMPH NODES COMPLT Left 04/26/2017 LYMPHADENECTOMY, AXILLARY, COMPLETE (WRVU 13.87) performed by Jolie Menendez MD at [facility] REPLACE TISSUE SAP PI ARCHITECT Bilateral 12/12/2017 TISSUE SAP PI ARCHITECT REPLACEMENT, WITH PERMANENT PROSTHESIS, SUSAN (WRVU 8.01) performed by Andre Gimenez MD at [facility] REVISION RECONSTRUCTED BREAST Left 06/22/2017 REVISION OF RECONSTRUCTED BREAST (WRVU 10.41) performed by Andre Gimenez MD at [facility] REVISION RECONSTRUCTED BREAST Bilateral 12/12/2017 REVISION OFRECONSTRUCTED BREAST, SUSAN (WRVU 10.41) performed by Andre Gimenez MD at [facility] MAIN OR PRO THYMECTOMY, TRANSCERVICAL N/A 11/02/2015 THYMECTOMY, TRANSCERVICAL APPROACH performed by Valentina Lucas MD at [facility] MAIN OR SHOULDER SURGERY Left UMBILICAL [...] mobile Adnexa - non-tender, no palpable masses In Home Caregiver present for exam Assessment/ Plan: Healthy 57 y.o. woman here for postmenopausal ob/gyn nurse exam. Pap/HPV today Vulvar psoriasis or LS?- [...] 01/22/2024 10:30 AM EST Appointment Mammography/[place] [phone] Ladi Mendosa MD [facility] H[place]ATOLOGY [place] [address] 01/30/2024 11:30 AM EST Office Visit Dermatology at [facility] [address] [place] [address] [facility] [place] [address] 02/14/2024 7:30 AM EST Appointment Radiology at [facility] [place] [phone] Joanna Watts MD [facility] [address] documented as of this encounter Procedures Procedure Name Priority Date/Time Associated Diagnosis Comments HPV Routine 11/10/2022 11:30 AM EDT RN ENDOSCOPY CYTOLOGY INTERPRETATION Routine 11/10/2022 11:30 AM EDT RN ENDOSCOPY CYTOLOGY FINAL REPORT Routine 11/10/2022 11:30 AM EDT CYTOPATHOLOGY GYNECOLOGICAL Routine 11/10/2022 11:30 AM EDT Cervical cancer screening URINALYSIS MICROSCOPIC EXAM Routine 11/10/2022 10:40 AM EDT URINALYSIS WITH REFLEX CULTURE Routine 11/10/2022 10:40 AM EDT YEAST CULTURE Routine 11/10/2022 10:40 AM EDT Irritation of vulva URINE CULTURE Routine 11/10/2022 10:40 AM EDT POCT URINE DIPSTICK Routine 11/10/2022 Dysuria documented in this encounter Results * RN ENDOSCOPY Cytology Interpretation (11/10/2022 11:30 AM EDT) [employer] Cytology Interpretation [facility] Comment:[employer]lech[employer] Jockey Cytology Final R eport [employer] Cytology Comment Present [facility] Endocervical Component Present [facility] AP Specimen 11/10/2022 11:3 0 AM EDT 11/27/2022 12:15 PM EDT Abby Phoenix CNM PATHOLOGY/CYTOLO GY ORDERABLES [facility] [place] [id number] * [employer] Cytology Final Report (11/10/2022 11:30 AM EDT) [employer] Cytology Final Report [id number] ? Location: 5L The signing pathologist has (i) examined the relevant preparation(s) for the specimen(s) and (ii) rendered or confirmed the diagnosis(es). . ? [employer]ockey Final DIAGNOSIS Normal Negative for intraepithelial lesion or malignancy (NILM). For consensus guidelines for the management of cervical cancer screening test results, please see: ?? [email or web address].[email or web address].o [email or web address] . Electronically signed by: ?Bk CARL(ASCP)Jillian Verified: ??11/27/2022 12:15 ??Correction Officer Supervisor Performed at: ??-[facility] Dept. of Pathology, [place] [address] Office Clin Asst: Yoselin Pimentel MD, FCAP, ??CLIA Certificate: [id number] DISCUSSION Shift in faheem suggestive of bacterial [...] Clinical Genomics and Advanced Technology (CGAT) at [facility]. ? - Dave Arizmendi, PhD, [facility], Director-[facility] STATEMENT OF ADEQUACY Specimen submitted is satisfactory. Endocervical component present. CLINICAL INFORMATION HPV Option: ?Concurrent HPV and Pap CT/NG Option: ?No Preparation: ? Liquid based Pap Specimen Source: ? Cervical/Endocervi kee LMP: ? postmenopause Hysterectomy: ?No : ?No : ?No I.U.D.: ?No Pelvic Radiation: ?No Hist Abnl Pap/Biopsy: ?Yes, history of previous abnormal Pap Prior RN ENDOSCOPY Therapy: ? No . CLINICAL INFORMATION Hist of HPV Vaccine: ? No ICD Diagnosis: ? Z12.4 Encounter for screening for malignant neoplasm of cervix Clinical Data, Significant Therapy and Clinical Impression ?? : ?_ This Pap Test has been evaluated with the assistance of the [employer] Pap Test Imaging System. Note: The Pap test is a screening test for cervical cancer with an inherent false-negative rate dependent upon several variables. For further information please contact the [facility] Laboratory. Reference: Kalyan RODRIGUEZ. Mobile Phlebotomist of Pap Smear Results. In: Shaggy BS, Laci HH, ed. The Pap Smear. [facility]: Adebayo, 2002: 71-77. [facility] 11/10/2022 11:3 0 AM EDT Abby MEANS PATHOLOGY/CYTOLO GY ORDERABLES Performing Organization Address City/[facility]/ZIP Co de Phone Number [facility] [place] [address] * HPV (11/10/2022 11:30 AM EDT) HPV16 NEGATIVE NEGATIVE [facility] HPV 18 NEGATIVE NEGATIVE [facility] HPV Other HR NEGATIVE NEGATIVE [facility] HPV Interpretation See Comment [facility] Comment: NEGATIVE for high-risk HPV [...] Lab Abby Phoenix CNM PATHOLOGY/CYTOLO GY ORDERABLES [facility] [place] [address] * Cytopathology Gynecological (11/10/2022 11:30 AM EDT) AP Specimen 11/10/2022 11:3 0 AM EDT 11/10/2022 11:30 AM EDT Narrative [facility] - 11/10/2022 11:30 AM EDT Specimen requisition ordered. ??Separate Pathology report to follow Abby Phoenix CNM PATHOLOGY/CYTOLO GY ORDERABLES [facility] [place] [address] * (ABNORMAL) Urine culture (11/10/2022 10:40 AM EDT) Urine Culture 10,000-49,000 cfu/ml Escherichia coli(A) [facility] Organism Escherichia coli(A) [facility] Urine 11/10/2022 10:4 0 AM [...] Phoenix CNM MICROBIOLOGY - G ENERAL ORDERABLES [facility] [place] [address] * (ABNORMAL) Urinalysis Microscopic Exam (11/10/2022 10:40 AM EDT) RBC, Urine 2 0 - 4 /HPF [facility] WBC, Urine >100(H) 0 - 5 /HPF [facility] Bacteria, Urine Few(A) None /HPF [facility] Squamous Epithelial Cells Raw Data, Urine 5(H) <=4 /HPF [facility] Hyaline Casts, Urine 6(H) 0 - 2 /LPF [facility] Urine Urine / Unknown 11/10/2022 1 0:40 AM EDT 11/10/2022 3:59 PM EDT Narrative Resulting Agency Comment Spec In Lab Abby Phoenix [facility] URINE ORDERABLES [facility] [place] [address] * (ABNORMAL) Urinalysis with reflex Culture (11/10/2022 10:40 AM EDT) Glucose, Urine Dipstick Negative Negative mg/dL [facility] Protein, Urine Dipstick 100(A) Negative mg/dL [facility] Bilirubin, Urine Dipstick Negative Negative mg/dL [facility] Comment: Clinical correlation required for positive Urine Bilirubin results as false positive may occur with some drugs and drug related products. If a false positive is suspected a serum total bilirubin should be considered if clinically indicated. Urobilinogen, Urine Dipstick Normal Normal mg/dL [facility] pH, Urn (dipstick) 6.5 5.0 - 8.0 [facility] Blood, Urine Dipstick Trace(A) Negative mg/dL [facility] Ketone, Urine Dipstick Negative Negative mg/dL [facility] Nitrite, Urine Dipstick Negative Negative [facility] Leukocytes, Urine Dipstick Large(A) Negative [facility] Appearance, Urine Dipstick Cloudy(A) Clear [facility] Specific Maynard Urine Automated 1.018 1.005 - 1.030 [facility] Color, Urine Dipstick Yellow Yellow [facility] Reflex to Culture Yes [facility] Urine Urine / Unknown 11/10/2022 1 0:40 AM EDT 11/10/2022 3:59 PM EDT Narrative Resulting Agency Comment Spec In Lab Abbyarvin Phoenix CLARY URINE ORDERABLES Performing Organization Address City/[facility]/[place] [address] * Yeast culture Other (11/10/2022 10:40 AM EDT) Yeast Culture No Yeast isolated [facility] Other 11/10/2022 10:4 0 AM EDT 11/10/2022 4:30 PM EDT Comment:vulva Narrative Resulting Agency Comment Spec In Lab bAby Phoenix CLARY MICROBIOLOGY - G ENERAL ORDERABLES Performing Organization Address [facility] [place] [address] * (ABNORMAL) POCT urine dipstick (11/10/2022) POC Sp Maynard 1.0(A) 1.002 - 1.030 POC pH, UA [...] UA 50 Negative - Negative dany/uL Abby Terri Lizett MEANS POINT OF CARE TE ST ORDERABLES documented in this encounter Visit Diagnoses Diagnosis Irritation of vulva Other specified noninflammatory disorder of vulva and perineum Cervical cancer screening Screening for malignant neoplasm of the cervix Vaginal dryness, menopausal Symptomatic menopausal or female climacteric states Dysuria Encounter for gynecological examination with abnormal finding Routine gynecological examination documented in this encounter Care Teams Beehive Kiln Charcoal Burner Relationship Specialty Start Date End Date Trinh Coates MD [address] [place] [address] PCP - General 01/11/10 documented as of this encounter
--- OUTSIDE RECORDS SUMMARY | 2023-09-25 11:42 | XMS_ITS | Encounter Summary ---
Author Organization [facility] [place] [address] Care Team Providers Care Mechanical Unit Repairer Name Role Phone Trinh Coates MD Primary Care Provider [phone] Reason for Visit * Reason Comments Specialty Pharmacy Review Encounter Details Date Type Department Care Team (Late st Contact Info) Description 2022 Specialty [place] [phone] Mike Cavazos, [facility] Social History Tobacco Use Types Packs/Day [...] Cavazos - 2022 11:59 PM EDT The [facility] has completed a benefits investigation for Wendy Sandoval to review their eligibility to fill at [facility]. Per patient's medication list they are prescribed STELARA 45 MG/0.5 ML and the medication is not able to be filled at the [facility]. At this time insurance mandates this medication must be filled through [facility]. documented in this encounter Plan of Treatment Upcoming Encounters Date Type Department Care Team (Late st Contact Info) Description 01/22/2024 10:30 AM EST Appointment Mammography/[place] [address] Ladi Mendosa MD [facility] HEMATOLOGY [place] [address] 01/30/2024 11:30 AM EST Office Visit Dermatology at [place] [address] [place] [address] Nilda Luis MD [facility] [address] 02/14/2024 7:30 AM EST [place] [address] Joanna Watts MD [facility] [place] [address] documented as of this encounter Visit Diagnoses Not on filedocumented in this encounter Care Teams Mechanical Unit Repairer Relationship Specialty Start Date End Date Trinh Coates MD [facility] [address] [place] [address] PCP - General 01/11/10 documented as of this encounter
--- OUTSIDE RECORDS SUMMARY | 2023-09-25 11:42 | XMS_ITS | Encounter Summary ---
Author Organization [facility] Address [facility] [place] [address] Care Team Providers Care Dental Hygienist Name Role Phone Trinh Coates MD Primary Care Provider [phone] Encounter Details Date Type Department Care Team [...] 01/22/2024 10:30 AM EST Appointment Mammography/[place] [address] Ladi Mendosa MD [facility] [address] [place] [address] 01/30/2024 11:30 AM EST Office Visit Dermatology at [facility] [address] [place] [phone] Nilda Luis MD [facility] [place] [address] 02/14/2024 7:30 AM EST [place] [address] Joanna Watts MD [facility] [address] documented as of this encounter Visit Diagnoses Not on filedocumented in this encounter Care Teams Dental Hygienist Relationship Specialty Start Date End Date Trinh Coates MD [facility] [address] [address] PCP - General 01/11/10 documented as of this encounter
--- OUTSIDE RECORDS SUMMARY | 2023-09-25 11:42 | XMS_ITS | Encounter Summary ---
Author [place] [address] Care Team Providers Care Heavy Antiarmor Weapons Infantryman Name Role Phone Trinh Coates MD Primary Care Provider [phone] Reason for Referral * Diagnostic Test (Routine) - Closed Specialty Diagnoses / Procedures Referred By Diamante marin Referred To Contact Radiology Diagnoses Right internal carotid artery aneurysm Procedures IR Embolization Cerebral Joanna Watts MD [facility] [place] [address] [place] [address] Referral ID Status Reason Start Date Expiration Date V isits Requested Visits Authorized [id number] Closed Specialty Service Requested 05/19/2022 11/19/2023 1 1 Reason for Visit * Auth/Cert (Routine) Specialty Diagnoses / Procedures Referred By Diamante marin Referred To Contact Diagnoses Cerebral aneurysm, nonruptured AXEL pipeline Procedures PRO PERM OCCLUSION/EMBOLIZATION, PERCUT, METAL OR WOOD BLOCKER @TRANSCATHETER OCCLUSION/EMBOLIZATION FOR TUMOR DESTRUCTION (WRVU 20.12) Joanna Watts MD [facility] [place] [address] [facility] Referral ID Status Reason Start Date Expiration Date Visits Re quested Visits Authorized [id number] 1 1 Encounter Details Date Type Department Care Team (Latest Contact Info) Description 07/24/2022 7:30 AM EDT - 07/24/2022 11:59 PM EDT Hospital Encounter Radiology at [facility] [place] [address] Joanna Watts MD [facility] [address] Right internal carotid artery aneurysm Discharge Disposition: [...] encounter Discharge Instructions * Discharge Instructions* Joan Mason RN - 07/24/2022 8:20 AM EDT [facility] Interventional Radiology Post Angiography Instructions Procedure: Cerebral [...] call and ask for the vice president of sales bd special education teacher 10. If you are a diabetic and [...] for Pain. 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 Address: [address] [place] [phone] (home) [phone] (work) Mobile: Telephone Information: Referring Provider: Joanna Watts REASON FOR VISIT: Order Questions Answers Where will study be performed? [facility] Radiology [120] Does this patient have any [...] 4 mg IV and fentanyl 200 mcg 3 Cerebral Arteriogram - diagnostic Fentanyl 125 mcg, [...] AXEL aneurysm Description of the procedure: R ELECTROLOG OPERATOR 6Fr access. Attempted 6Fr angioseal closure with [...] AM EST Appointment Mammography/[place] [address] Ladi Mendosa MD [facility] [place] [address] 01/30/2024 11:30 AM EST Office Visit Dermatology at [facility] [address] [place] [address] Nilda Luis MD [facility] [place] [address] 02/14/2024 7:30 AM [place] [phone] Joanna Watts MD [facility] [place] [address] documented as of this encounter Procedures Procedure [...] who have questions please contact the health auto care center manager that requested your imaging first. ? Electronically signed by: Joanna Watts MD, [facility] ([phone]), at 07/24/2022 1:42 PM Narrative 07/24/2022 1:42 [...] flexible Glidewire with Terumo torque device. 4. ??6-Zambian, 90-cm NeuronMax 5. ??5-Zambian Envoy guide catheter. 6. ??5-Zambian, 125-cm Mann II angiographic catheter. 7. ??5-Zambian NARESH catheter. 8. ??5-Zambian 0.055 ??x 125 cm Mary Distal Access Catheter 9. ??Phenom 27 microcatheter. 10. ??0.014 Synchro 2 hydrophilic guidewire. 11. ??Pipeline Shield 5.0 x 25mm 12. ??6-Zambian Angio-Seal Device ?? PROCEDURE COMMENTS: After explaining [...] exchanged for an introducer followed by a 6-Zambian ??90 cm vascular sheath utilizing a Bentson wire. The sheath was then double flushed and hooked to heparinized saline via pressure bag. Subsequently a Mann 2 angiographic catheter was initially used to attempt selection of the right common carotid artery which was unsuccessful. This was switched out for a 5-Zambian ??VERT catheter which was used to selectively catheterize the right common carotid artery. The sheath was advanced up to the level of the first carotid loop, and the angiographic catheter and Glidewire were removed. A 5 Zambian Mary was introduced into the sheath and snaked up to the level of the petrous right internal carotid artery. A Glidewire was introduced into the 5 Zambian Reanna up to the level of the [...] and microwire were withdrawn from the 5 Zambian Reanna. The access sheath was withdrawn to the level of the distal common carotid artery, leaving the [address] [place] [address] to maintain access across [...] in the usual sterile fashion. ??A 6 Zambian Angio-Seal closure device was subsequently prepared and [...] flexible Glidewire with Terumo torque device. 4. 6-Zambian, 90-cm NeuronMax 5. 5-Zambian Envoy guide catheter. 6. 5-Zambian, 125-cm Mann II angiographic catheter. 7. 5-Zambian NARESH catheter. 8. 5-Zambian 0.055 x 125 cm Mary Distal Access Catheter 9. Phenom 27 microcatheter. 10. 0.014 Synchro 2 hydrophilic guidewire. 11. Pipeline Shield 5.0 x 25mm 12. 6-Zambian Angio-Seal Device PROCEDURE COMMENTS: After explaining the [...] angiography table. General anesthesia was induced by [facility] anesthesiology service. Both groins were prepped [...] exchanged for an introducer followed by a 6-Zambian 90 cm vascularsheath utilizing a Bentson wire. [...] catheter and Glidewire were removed. A 5 Zambian Sofiawas introduced into the sheath and snaked [...] microcatheter and microwire were withdrawnfrom the 5 Zambian Reanna. The access sheath was withdrawn to the level of thedistal common carotid artery, leaving the [address] [place] [address] to maintainaccess across the [...] draped in the usual sterile fashion. A6 Zambian Angio-Seal closure device was subsequently prepared and [...] patients who have questions please contactthe health auto care center manager that requested your imaging first. Joanna Watts MD IM IR ORDERABLES documented [...] mLs documented in this encounter Care Teams Heavy Antiarmor Weapons Infantryman Relationship Specialty Start Date End Date Trinh Coates MD [facility] [address] [place] [address] PCP - General 01/11/10 documented as of this encounter
--- OUTSIDE RECORDS SUMMARY | 2023-09-25 11:42 | XMS_ITS | Encounter Summary ---
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 [...] 01/22/2024 10:30 AM EST Appointment Mammography/[place] [address] Ladi Mendosa MD [facility] [place]ATOLOG[place] [address] 01/30/2024 11:30 AM EST Office Visit Dermatology at [facility] [address] [place] [address] Nilda Luis MD [facility] [place] [address] 02/14/2024 7:30 AM EST [place] [address] Joanna Watts MD [facility] [place] [address] documented as of this encounter Results * (ABNORMAL) Creatinine (11/08/2022 10:02 AM EDT) Creatinine 1.87(H) 0.70 - 1.20 mg/dL [facility] Est Glomerular Filtration Rate 31(L) >=60 mL/min/1. 73 m?? 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
--- OUTSIDE RECORDS SUMMARY | 2023-09-25 11:42 | XMS_ITS | Encounter Summary ---
Author Organization [facility] [place] [address] Care Team Providers Care Payer Specialist Name Role Phone Trinh Coates MD Primary Care Provider [phone] Encounter Details Date Type Department Care Team (Latest Contact Info) Description 2022 3:00 PM EDT Laboratory Appointment Lab at [facility] [address] [place] [address] High risk medication use Social History Tobacco [...] 01/22/2024 10:30 AM EST Appointment Mammography/[place] [address] Ladi Mendosa MD [facility] [place] [address] 01/30/2024 11:30 AM EST Office Visit Dermatology at [facility] [address] [place] [address] Nilda Luis MD [facility] [place] [address] 02/14/2024 7:30 AM [place] [phone] Joanna Watts MD [facility] [place] [address] documented as of this encounter Procedures Procedure Name Priority Date/Time Associated Diagnosis Comments QUANTIFERON-TB GOLD Routine 2022 3 :01 PM EDT High risk medication use HEMOGRAM Routine 2022 3:01 PM EDT High risk medication use DIFFERENTIAL, AUTOMATED Routine 2022 3:01 PM EDT High risk medication use HC CBC,PLT & AUTO DIFF Routine 3:01 PM EDT High risk medication use COMPREHENSIVE METABOLIC PANEL Routine 2022 3:01 PM EDT High risk medication use documented in this encounter Results * (ABNORMAL) Differential, Automated (2022 3:01 PM EDT) Neutrophil % 64.9 % [facility] Neutrophil Absolute 5.92 1.70 - 6.10 x10(3)/mc L [facility] Lymph % 19.0 % [facility] Lymphocytes Abs 1.7 0.9 - 3.2 x10(3)/[facility] Monocyte % 8.5 % [facility] Monocyte Abs 0.8 0.3 - 0.9 x10(3)/[facility] Eos % 5.6 % [facility] Eosinophils Abs 0.5(H) 0.0 - 0.4 x10(3)/[facility] Basophil % 1.6 % [facility] Baso Absolute 0.2(H) 0.0 - 0.1 x10(3)/[facility] Immature Gran % 0.40 % [facility] Comment: Immature granulocytes(IG's)percentage and absolute count will include metamyelocytes, myelocytes, and promyelocytes. Blood smears from CBCs yielding IG's will be scanned manually for concordance. If this scan disagrees with the automated IG or if promyelocytes are noted, a manual differential will be performed. Immature Gran Absolute 0.04 0.00 - 0.04 x10(3)/[facility] Blood 2022 3:01 PM EDT 2022 4:12 PM EDT Narrative Resulting Agency Comment Spec In Lab Nilda Luis MD HEMATOLOGY ORDERABL ES [facility] [place] [address] * (ABNORMAL) Hemogram (2022 3:01 PM EDT) White Blood Cell 9.1 4.0 - 9.5 x10(3)/[facility] Red Blood Cell 4.05 4.00 - 5.21 x10(6)/[facility] Hemoglobin 13.0 11.7 - 15.5 g/dL [facility] Hematocrit 39.4 35.7 - 45.8 % [facility] Mean Cell Volume 97.3(H) 82.6 - 94.4 fL [facility] Mean Cell Hemoglobin 32.1(H) 27.1 - 32.0 pg [facility] Mean Cell Hemoglobin Concentration 33.0 31.7 - 35.0 g/dL [facility] Platelet 343 145 - 357 x10(3)/mc L [facility] RDW Standard Deviation 50.4(H) 37.0 - 46.0 fL [facility] RDW coefficient of variation 13.9 11.5 - 14.1 % [facility] Mean Platelet Volume 9.9 7.6 - 12.9 fL [facility] NRBC% auto 0.0 % [facility] NRBC Absolute 0.000 0.000 - 0.000 x10(3)/mc L [facility] Blood 2022 3:01 PM EDT 2022 4:12 PM EDT Narrative Resulting Agency Comment Spec In Lab Nilda Luis MD HEMATOLOGY ORDERABL ES [facility] [place] [address] * QuantiFERON-TB Gold (2022 3:01 PM EDT) Quantiferon Nil 0.005 IU/mL [facility] QFT TB Ag1-Nil 0.012 IU/mL [facility] QFT TB Ag2-Nil 0.014 IU/mL [facility] Quantiferon Mitogen-Nil 9.995 IU/mL [facility] Quantiferon-TB Gold Negative Negative [facility] Quantiferon Tb Interp M. tuberculosis infection [...] affect immune function, or other immunological factors. [facility] Blood 2022 3:01 PM EDT 06/28/2022 9:38 AM EDT Narrative Resulting Agency Comment Spec In Lab Nilda Luis MD CHEMISTRY ORDERABLE S [facility] [place] [address] * (ABNORMAL) Comprehensive metabolic panel (non-fasting) (2022 3:01 PM EDT) Glucose 100 65 - 199 mg/dL [facility] Comment:Diabetes: >=200 mg/d L plus symptoms Blood Urea Nitrogen 34(H) 8 - 18 mg/dL [facility] Creatinine 1.60(H) 0.70 - 1.20 mg/dL [facility] Sodium 130(L) 135 - 145 mmol/L [facility] Potassium 4.2 3.5 - 5.0 mmol/L [facility] Comment: Please note: ??Patients with WBC >100,000 may have falsely elevated Potassium levels. ??For accurate Potassium quantification in these patients send serum separator tube (gold top) for subsequent determinations. ??Contact the Clinical Chemistry Laboratory if there are any questions. Chloride 97(L) 98 - 107 mmol/L [facility] Carbon Dioxide 24 22 - 31 mmol/L [facility] Anion Gap 9 5 - 15 mmol/L [facility] Calcium 9.3 8.5 - 10.5 mg/dL [facility] Protein, Total 6.7 6.1 - 8.0 g/dL [facility] Albumin 4.3 3.2 - 5.2 g/dL [facility] Aspartate Aminotransferase 13 0 - 30 unit/L [facility] Alanine Aminotransferase 16 0 - 30 unit/L [facility] Alkaline Phosphatase 90 35 - 105 unit/L [facility] Bilirubin, Total 0.3 0.2 - 1.3 mg/dL [facility] Est Glomerular Filtration Rate 37(L) >=60 mL/min/1. 73 m?? [facility] Comment: This patient's estimated [...] MD CHEMISTRY ORDERABLE S Performing Organization Address City/State/[facility] [place] [address] documented in this encounter Visit Diagnoses Diagnosis High risk medication use Encounter for long-term (current) use of other medications documented in this encounter Care Teams Payer Specialist Relationship Specialty Start Date End Date Trinh Coates MD [address] [place] [address] PCP - General 01/11/10 documented as of this encounter
--- OUTSIDE RECORDS SUMMARY | 2023-09-25 11:42 | XMS_ITS | Encounter Summary ---
Author Organization [facility] Address [facility] [place] [address] Care Team Providers Care [employer] Lieutenant Name Role Phone Trinh Coates MD Primary Care Provider [phone] Encounter Details Date Type Department Care Team (Late st Contact Info) Description 08/04/2022 Telephone Dermatology at [facility] [address] [place] [address] Nilda Luis MD [facility] [place] [address] Social History Tobacco Use Types Packs/Day Years [...] 08/04/2022 9:37 AM EDT I returned Wendy Martinezmoreno call and was unable to reach them at the call back number provided. I left my number to return my call [phone] (Dr. Flores / Dr. Luis) or to send a message via My . documented in this encounter Plan of Treatment Upcoming Encounters Date Type Department Care Team (Late st Contact Info) Description 01/22/2024 10:30 AM EST Appointment Mammography/[place] [address] Ladi Mendosa MD [facility] HEMATOLOGY [place] [address] 01/30/2024 11:30 AM EST Office Visit Dermatology at [address] [address] Nilda Luis MD [facility] [place] [address] 02/14/2024 7:30 AM EST Appointment [place] [address] Joanna Watts MD [facility] [address] documented as of this encounter Visit Diagnoses Not on filedocumented in this encounter Care Teams [employer] Lieutenant Relationship Specialty Start Date End Date Trinh Coates MD [facility] [address] [place] [address] PCP - General 01/11/10 documented as of this encounter
--- OUTSIDE RECORDS SUMMARY | 2023-09-25 11:42 | XMS_ITS | Encounter Summary ---
Author Organization [facility] Address [facility] [facility] [place] [address] Care Team Providers Care Heater Operator Helper Name Role Phone Trinh Coates MD Primary Care Provider [phone] Reason for Visit * Reason Comments Skin Check Encounter Details Date Type Department Care Team (Late st Contact Info) Description 2022 2:15 PM EDT Office Visit Dermatology at [facility] [address] [place] [address] Jay Luis MD [facility] [place] [address] Psoriasis; History of dysplastic nevus; High risk [...] Psoriasis (Mother) Social History Occupation: Works at [employer] Hobbies: Other: ?? Pre-Procedure Questions Details Allergy [...] 1 year for FSE []Note routed to secretary of police [x]Recall placed in scheduling system []Appointment scheduled at checkout Scribe attestation: RANDY Villatoro has performed the documentation for this encounter in the presence of and acting as a scribe for JAY LUIS MD. I performed the above scribed service and agree with the accuracy of the documentation in this encounter. Reviewed and signed by: JAY LUIS MD Dermatology [facility] documented in this encounter Plan of Treatment Upcoming Encounters Date Type Department Care Team (Late st Contact Info) Description 01/22/2024 10:30 AM EST Appointment Mammography/[place] [address] Ladi Mendosa MD [facility] HEMATOLOGY [place] [address] 01/30/2024 11:30 AM EST Office Visit Dermatology at [facility] [address] [place] [address] Jay Luis MD [facility] [place] [address] 02/14/2024 7:30 AM EST Appointment Radiology at [place] [phone] Joanna Watts MD [facility] NEUROSURGERY [place], [place] [phone] documented as of this encounter Results * QuantiFERON-TB Gold (2022 3:01 PM EDT) Quantiferon Nil 0.005 IU/mL [facility] QFT TB Ag1-Nil 0.012 IU/mL [facility] QFT TB Ag2-Nil 0.014 IU/mL [facility] Quantiferon Mitogen-Nil 9.995 IU/mL [facility] Quantiferon-TB Gold Negative Negative [facility] Quantiferon Tb Interp M. [...] affect immune function, or other immunological factors. [facility] Blood 2022 3:01 PM EDT 06/28/2022 9:38 AM EDT Narrative Resulting Agency Comment Spec In Lab Jay Luis MD CHEMISTRY ORDERABLE S [facility] [place] [address] * (ABNORMAL) Comprehensive metabolic panel (non-fasting) (2022 3:01 PM EDT) Glucose 100 65 - 199 mg/dL [facility] Comment:Diabetes: >=200 mg/d L plus symptoms Blood Urea Nitrogen 34(H) 8 - 18 mg/dL [facility] Creatinine 1.60(H) 0.70 - 1.20 mg/dL [facility] Sodium 130(L) 135 - 145 mmol/L [facility] Potassium 4.2 3.5 - 5.0 mmol/L [facility] Comment: Please note: ??Patients with WBC >100,000 may have falsely elevated Potassium levels. ??For accurate Potassium quantification in these patients send serum separator tube (gold top) for subsequent determinations. ??Contact the Clinical Chemistry Laboratory if there are any questions. Chloride 97(L) 98 - 107 mmol/L [facility] Carbon Dioxide 24 22 - 31 mmol/L [facility] Anion Gap 9 5 - 15 mmol/L [facility] Calcium 9.3 8.5 - 10.5 mg/dL [facility] Protein, Total 6.7 6.1 - 8.0 g/dL [facility] Albumin 4.3 3.2 - 5.2 g/dL [facility] Aspartate Aminotransferase 13 0 - 30 unit/L [facility] Alanine Aminotransferase 16 0 - 30 unit/L [facility] Alkaline Phosphatase 90 35 - 105 unit/L [facility] Bilirubin, Total 0.3 0.2 - 1.3 mg/dL [facility] Est Glomerular Filtration Rate 37(L) >=60 mL/min/1. 73 m?? [facility] Comment: This patient's estimated [...] MD CHEMISTRY ORDERABLE S Performing Organization Address City/State/[facility] [place] [address] documented in this encounter Visit Diagnoses Diagnosis Psoriasis Other psoriasis History of dysplastic nevus Personal history of diseases of skin and subcutaneous tissue High risk medication use Encounter for long-term (current) use of other medications Lentigines Other dyschromia Seborrheic keratoses [place] (actinic keratosis) Actinic keratosis documented in this encounter Care Teams Heater Operator Helper Relationship Specialty Start Date End Date Trinh Coates MD [address] [place] [address] PCP - General 01/11/10 documented as of this encounter
--- OUTSIDE RECORDS SUMMARY | 2023-09-25 11:42 | XMS_ITS | Encounter Summary ---
Author Organization [facility] Address [facility] [place] [address] Care Team Providers Care Swimming Coach Name Role Phone Trinh Coates MD Primary Care Provider [phone] Encounter Details Date Type Department Care Team (Late st Contact Info) Description 08/03/2022 10:15 AM EDT Office Visit Radiation Oncology at [address] [address] Tahira Cardenas, SELF PAY COLLECTOR [facility] [place] [address] Hormone receptor positive malignant neoplasm [...] sparing mast . Arreaga and Arimedex switched [facility] [place] [address] Phone: RADIATION ONCOLOGY FOLLOW UP NOTE Date [...] pN2a. Adjuvant chemo then given, followed by financial sales associate exchange for implants. She was taking arreaga, [...] rotator cuff by Ortho group in [facility]. Subjective: Aches & pains in joints [...] 22 and she is following closely with [facility] allergy department. She does not have any [...] completely. Wendy brought her mother here from [place] for her treatment. There is a ceratin amt of concern for memory issues and perhaps a bit of chemo brain fog in this regard there is concern about her mother wanting to return to home in [place] without the support s he needs. We [...] IR Arteriogram Cerebral 05/19/2022 Joanna Watts MD [facility] INTERVENTIONL RAD IR DRAIN CHECK/CHANGE/REMOVE 11/20/2017 IR Drain Check/Change/Remove 11/20/2017 Marcos Dey MD [facility] INTERVENTIONL RAD IR MEDIPORT REMOVAL 01/25/2018 IR Mediport Removal 01/25/2018 Scooby Muñoz, SELF PAY COLLECTOR [facility] INTERVENTIONL RAD PRG EMG, LARYNX N/A 11/02/2015 FACIAL NERVE MONITORING, SETUP LARYNGEAL performed by Valentina Lucas MD at [facility] MAIN OR PRO BREAST RECONSTRUCTION IMMT/DLYD W/TISS TOWER EXCAVATOR OPERATOR SBSQ EXPANSION Bilateral 04/26/2017 BREAST RECONSTRUCTION, IMMEDIATE OR DELAYED, W/ TISSUE TOWER EXCAVATOR OPERATOR, INCLUDING SUBSEQUENT EXPANSION (WRVU 18.5) performed by Andre Gimenez MD at [facility] MAIN OR PRO BREAST RECONSTRUCTION W FREE FLAP Bilateral 04/26/2017 @BREAST RECONSTRUCTION W/ FREE FLAP, SUSAN (WRVU 42.58) performed by Andre Gimenez MD at [facility] LLOYD PRO BREAST RECONSTRUCTION W/LATSMS D/SI FLAP WO PRSTHC IMPL Bilateral 12/12/2017 @BREAST RECONSTRUCTION W/ LAT DORSI FLAP,W/O IMPLANT, SUSAN (WRVU 23.36) performed by Andre Gimenez MD at [facility] MAIN OR PRO DEBRIDEMENT SUBCUTANEOUS TISSUE 20 SQCM/< 06/22/2017 DEBRIDEMENT SKIN AND SUBCU, BREAST (WRVU 1.01) performed by Andre Gimenez MD at [facility] MAIN OR PRO EXPLORE PARATHYROID GLANDS N/A 11/02/2015 PARATHYROIDECTOMY OR EXPLORATION OF PARATHYROID(S) performed by Valentina Lucas MD at [facility] MAIN OR PRO FULL THICK GRFT TRUNK <20 SQCM Bilateral 04/26/2017 FTSG, FREE, DIR CLOSE DONOR SITE, TRUNK, 20 SQ CM OR LESS (WRVU 9.15) performed by Andre Gimenez MD at [facility] MAIN OR [facility] INCISION OF LYMPH CHANNELS Left 10/18/2018 INCISION & DRAINAGE LYMPHOCELE (WRVU 6.81) performed by Andre Gimenez MD at [facility] MAIN OR PRO IV INJ TO TEST BLOOD FLOW IN FLAP/GRAFT Left 10/18/2018 IV INJECTION, AGENT TO TEST VASC FLOW IN FLAP OR GRAFT, ENT (WRVU 1.95) performed by Andre Gimenez MD at [facility] MAIN OR PRO MASTECTOMY, SIMPLE, COMPLETE Bilateral 04/26/2017 MASTECTOMY, SIMPLE, COMPLETE-SUSAN (WRVU 15.85) performed by Jolie Menendez MD at [facility] MAIN OR [facility] PARTIAL REMOVAL OF RIB Bilateral 04/26/2017 EXCISION OF RIB, PARTIAL (WRVU 7.26) performed by Andre Gimenez MD at [facility] MAIN OR [facility] REMOVE ARMPITS LYMPH NODES COMPLT Left 04/26/2017 LYMPHADENECTOMY, AXILLARY, COMPLETE (WRVU 13.87) performed by Jolie Menendez MD at [facility] MAIN OR [facility] REPLACE TISSUE TOWER EXCAVATOR OPERATOR Bilateral 12/12/2017 TISSUE TOWER EXCAVATOR OPERATOR REPLACEMENT, WITH PERMANENT PROSTHESIS, SUSAN (WRVU 8.01) performed by Andre Gimenez MD at [facility] MAIN OR PRO REVISION RECONSTRUCTED BREAST Left 06/22/2017 REVISION OF RECONSTRUCTED BREAST (WRVU 10.41) performed by Andre Gimenez MD at [facility] MAIN OR PRO REVISION RECONSTRUCTED BREAST Bilateral 12/12/2017 REVISION OFRECONSTRUCTED BREAST, SUSAN (WRVU 10.41) performed by Andre Gimenez MD at [facility] MAIN OR PRO THYMECTOMY, TRANSCERVICAL N/A 11/02/2015 THYMECTOMY, TRANSCERVICAL APPROACH performed by Valentina Lucas MD at [facility] OR SHOULDER SURGERY Left UMBILICAL HERNIA REPAIR [...] [facility] # lifestyle/wellness concerns: # Reviewed: Symptoms [...] no mammogram is scheduled. Tahira Cardenas MSN, SELF PAY COLLECTOR, CROP DUSTER HELPER-C Nurse Practitioner Radiation Oncology documented in this encounter Plan of Treatment Upcoming Encounters Date Type Department Care Team (Late st Contact Info) Description 01/22/2024 10:30 AM EST Appointment Mammography/[place] [address] Ladi Mendosa MD [facility] HEMATOLOGY [place] [address] 01/30/2024 11:30 AM EST Office Visit Dermatology at [place] [address] [place] [address] Nilda Luis MD [facility] [place] [address] 02/14/2024 7:30 AM EST Appointment Radiology at [place] [phone] Joanna Watts MD [facility] [place] [address] documented as of this encounter Visit Diagnoses Diagnosis 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
--- OUTSIDE RECORDS SUMMARY | 2023-09-25 11:42 | XMS_ITS | Encounter Summary ---
Author Organization [facility] [place] [address] Care Team Providers Care Retail Director Name Role Phone Trinh Coates MD Primary Care Provider [phone] Reason for Visit * Reason Comments Medication Refill Encounter Details Date Type Department Care Team (Late st Contact Info) Description 10/04/2022 Refill Dermatology at [facility] [address] [place] [address] Nilda Luis MD [facility] [place] [address] Actinic cheilitis Social History Tobacco Use Types [...] 01/22/2024 10:30 AM EST Appointment Mammography/[place] [address] Ladi Mendosa MD [facility] HEMATOLOGY [place] [address] 01/30/2024 11:30 AM EST Office Visit Dermatology at [facility] [address] [place] [address] Nilda Luis MD [facility] [place] [address] 02/14/2024 7:30 AM EST [place] [phone] Joanna Watts MD [facility] [address] documented as of this encounter Visit Diagnoses Diagnosis Actinic cheilitis Acute dermatitis due to solar radiation documented in this encounter Care Teams Retail Director Relationship Specialty Start Date End Date Trinh Coates MD [facility] [address] [facility] [address] [place] [address] PCP - General 01/11/10 documented as of this encounter
--- OUTSIDE RECORDS SUMMARY | 2023-09-25 11:42 | XMS_ITS | Encounter Summary ---
[place] [address] Care Team Providers Care Log Skidder Name Role Phone Trinh Coates MD Primary Care Provider [phone] Reason for Visit * Reason Comments Prior Authorization Stelara 45mg/0.5mL S OSY Encounter Details Date Type Department Care Team (Late st Contact Info) Description 09/07/2022 Specialty [place] [address] Jose Cullen, PARISH VISITOR Social History Tobacco Use Types Packs/Day Years [...] Patient : 1965 Patient Address: [address] [facility] [address] (home) Medication Name: STELARA 45 MG/0.5 ML SUBCUTANEOUS SYRINGE Medication ID: Subscriber Insurance: [employer] (ADV) Subscriber Insurance Comment: Fax: Physician: NILDA LUIS Physician Comment: Sent Via: Fax La: Ref/Case/PA#: Medication Strength Frequency Requested: Stelara 45mg/0.5mL SOSY. Inject the contents of one syringe (45mg) SQ every 12 weeks Qty/Day Supply: New Start: Renewal Diagnosis & ICD-10 Code: Psoriasis L40.9 Patient Notified: No Submission Notes: None Jose Cullen 09/07/22 11:21 AM * Jose Cullen - 09/07/2022 11:19 AM EDT [facility], Prior Authorization Approval Medication Name: STELARA 45 MG/0.5 ML SUBCUTANEOUS SYRINGE Medication ID: Approval Dates: 09/07/2022 to 09/15/2023 Insurance requirements/notes: - For Reauth only, currently filling with [facility] Other Notes: None Case/Reference #: N/A Approval notification Received via: Fax Copay: Copay assistance: Copay Card Copay Notes: Insurance mandated Pharmacy: [facility] Fillable at [facility]: No Patient Notified: No [...] 01/22/2024 10:30 AM EST Appointment Mammography/[place] [address] Ladi Mendosa MD [facility] [place] [address] 01/30/2024 11:30 AM EST Office Visit Dermatology at [address] [place] [phone] Nilda Luis MD [facility] [place] [address] 02/14/2024 7:30 AM EST Appointment Radiology at [place] [phone] Joanna Watts MD [facility] [place] [address] documented as of this encounter Visit Diagnoses Not on filedocumented in this encounter Care Teams Log Skidder Relationship Specialty Start Date End Date Trinh Coates MD [facility] [address] [place] [address] PCP - General 01/11/10 documented as of this encounter
--- OUTSIDE RECORDS SUMMARY | 2023-09-25 11:42 | XMS_ITS | Encounter Summary ---
[place] [address] Care Team Providers Care Lithoduplicator Operator Name Role Phone Trinh Coates MD Primary Care Provider [phone] Reason for Referral * Diagnostic Test (Routine) - Closed Specialty Diagnoses / Procedures Referred By Diamante marin Referred To Contact Radiology Diagnoses Brain aneurysm Procedures CT Angiogram [place] Alfred Stover MD [facility] [address] [place] [address] [facility] [place] [address] Referral ID Status Reason Start Date Expiration Date V isits Requested Visits Authorized [id number] Closed Specialty Service Requested 10/26/2022 04/24/2023 1 1 Reason for Visit * Auth/Cert (Routine) Specialty Diagnoses / Procedures Referred By Diamante marin Referred To Contact Diagnoses Cerebral aneurysm, nonruptured AXEL pipeline Procedures PRO PERM OCCLUSION/EMBOLIZATION, PERCUT, TIMBER MANAGEMENT TECHNICIAN @TRANSCATHETER OCCLUSION/EMBOLIZATION FOR TUMOR DESTRUCTION (WRVU 20.12) Joanna Watts MD [facility] [address] [facility] Referral ID Status Reason Start Date Expiration Date Visits Re quested Visits Authorized [id number] 1 1 Encounter Details Date Type Department Care Team (Latest Contact Info) Description 07/24/2022 6:06 AM EDT - 07/25/2022 4:40 PM EDT Hospital Encounter Surgical [place] [address] Joanna Watts MD [facility] [address] Brain aneurysm; Neuropathy due to chemotherapeutic drug; [...] Hospital Course: Patient was [facility] [place] [facility] via the same day surgery program and [...] provider. Please call the Neurosurgery Office at [phone] if you do not receive a scheduled [...] have tobacco dependence clinics in these locations: [facility] for Tobacco-Free Communities: Alexys [place] [facility] Treatment [place], [place] Other Programs at [facility] in [place] Living Free of Tobacco support group: For anyone who has quit tobacco or is considering quitting tobacco. [facility] Health Education Center, Level 4, East Mall 3:30 to 4:30 p.m. on the sunday of every month. Other Programs in the Area [facility] in [place] One-on-one counseling, hypnosis. Arpita Bess [facility] in [place], [place] One-on-one counseling, QuitLine, classes. Alejandra Hall [facility]: One-on-one counseling. All ages and incomes eligible. Breann Sheffield [facility]: Classes & support group. Camden George [facility] in [place], [place] One-on-one counseling, QuitLine, classes, hypnosis therapy. Lorie Linares Information about Quitting Smoking and Tobacco See our Quitting Smoking - Information and Materials page ([email or web address]- [email or web address]/information_on_quitting_smoking.html) for educational information about quitting smoking, downloadable smoking cessation materials, podcasts, websites, helplines, and more. FOLLOW UP PLAN: Future Appointments Date Time Provider Department Center 08/03/2022 10:15 AM Tahira Cardenas APRN [facility] Rad Off [place] [facility] HOW TO REACH NEUROSURGERY Office Hours (Sunday through Sunday 8am-5pm): Call On weekends or after office hours (after 5pm or before 8am): Call [phone] and ask the separator operator shellfish meats to page the Neurosurgery Resident/Advanced Practice Provider out of town collection clerk. *Your surgeon may not be callisthenics instructor (especially after office hours or on the weekend) so be ready totell about yourself and your surgery when you call. Neurosurgery Providers Adult Neurosurgery Dr. Curtis Mann Pediatric Neurosurgery Dr. Arpita Jarrett Advanced Practice Providers Nallely Barry, Nurse Practitioner (outpatient) Jackie Sarmiento, Physician Weaving Professor (inpatient/outpatient: neuro-oncology) Halie Grande, Nurse Practitioner (inpatient) Christy Bentley, Physician Weaving Professor (inpatient) Manuel Nunez, Nurse Practitioner (outpatient: pediatric) Araceli Levi, Nurse Practitioner (outpatient: vascular) Venessa Mckeon, Physician Weaving Professor (outpatient: spine) Kana Melendrez, Nurse Practitioner (inpatient/outpatient) Mitch Aguilar, Physician Weaving Professor (outpatient) Outpatient Nurses Rachna Guerrero General Instructions None Future Appointments and Orders Future Appointments and Orders Future Appointments Provider Department Dept Phone 08/03/2022 10:15 AM Tahira Cardenas APRN Radiation Oncology at [facility] Arrive at: [facility] door at end of hallway [phone] Future Orders Complete By Expires CT Angiogram [place] [facility] [place] [[id number] Custom] 10/25/2022 04/26/2023 Process Instructions: Scheduling Instructions: Questions: Clinical information / arteaga questions for radiologist: Where will study be performed?: [facility] Radiology Stat read required?: Does patient require sedation?: GA rationale: Date of injury if applicable: Notify physician (specify) [[id number] Custom] As directed Process Instructions: Scheduling Instructions: Comments: *Nausea or vomiting *Temperature of Greater than 100.4 Degrees Farenheit *Redness, tenderness, odor, or discharge around the incision site *Severe Pain Questions: Scheduled Appointments: Future Appointments Date Time Provider Department Center 08/03/2022 10:15 AM Tahira Cardenas, DIRECTOR EXPERIMENTAL MEDICINE [facility] Rad Off [facility] Primary Care Doctor: Trinh Coates MD [phone] Signed: STEVAN Pink 07/25/2022 documented in this [...] provider. Please call the Neurosurgery Office at [phone] if you do not receive a scheduled [...] have tobacco dependence clinics in these locations: [facility] for Tobacco-Free Communities: DEMETRIA Reardon [facility] [place], [place] Other Programs at [facility] [place] Free of Tobacco support group: For anyone who has quit tobacco or is considering quitting tobacco. [facility] Health Education Center, Level 4, [place] 3:30 to 4:30 p.m. on the sunday of every month. Other Programs in the Area [facility] in [place] One-on-one counseling, hypnosis. Arpita Bess [facility] in [place], [place] One-on-one counseling, QuitLine, classes. Alejandra Hall [facility]: One-on-one counseling. All ages and incomes eligible. Breann Sheffield [facility]: Classes & support group. [place] [facility] in [place], [place] One-on-one counseling, QuitLine, classes, hypnosis therapy. Lorie Linares Information about Quitting Smoking and Tobacco See our Quitting Smoking - Information and Materials page ([email or web address]- information/smoking/information_on_quitting_smoking.html) for educational information about quitting smoking, downloadable smoking cessation materials, podcasts, websites, helplines, and more. FOLLOW UP PLAN: Future Appointments Date Time Provider Department [place] 08/03/2022 10:15 AM Tahira Cardenas APRN [facility] Rad Off [place] [facility] HOW TO REACH NEUROSURGERY Office Hours (Sunday through Sunday 8am-5pm): Call On weekends or after office hours (after 5pm or before 8am): Call [phone] and ask the separator operator shellfish meats to page the Neurosurgery Resident/Advanced Practice Provider out of town collection clerk. *Your surgeon may not be callisthenics instructor (especially after office hours or on the weekend) so be ready totell about yourself and your surgery when you call. Neurosurgery Providers Adult Neurosurgery Dr. Nevan Nathan Dr. Sherman Delroy Mann Pediatric Neurosurgery Dr. Arpita Jarrett Advanced Practice Providers Nlalely Barry, Nurse Practitioner (outpatient) Jackie Sarmiento, Physician Weaving Professor (inpatient/outpatient: neuro-oncology) Halie Grande, Nurse Practitioner (inpatient) Christy Bentley, Physician Weaving Professor (inpatient) Manuel Nunez, Nurse Practitioner (outpatient: pediatric) Araceli Levi, Nurse Practitioner (outpatient: vascular) Venessa Mckeon, Physician Weaving Professor (outpatient: spine) Kana Melendrez, Nurse Practitioner (inpatient/outpatient) Mitch Aguilar, Physician Weaving Professor (outpatient) Outpatient Nurses Rachna Guerrero documented in [...] AM EDT NEUROSURGERY PROGRESS NOTE PLEASE PAGE [phone] WITH QUESTIONS ID: Wendy Sandoval is a [...] s/p flow diverting stent placement via R DRESSMAKER HELPER. HD# 1 POD # 1 Day Post-Op 07/24/22, Dr. 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 -D/c Treviño and ensure voiding -Mobilize -ADAT -D/c home with f/u as follows: --continue DAPT --f/u in 2wks with ASHTYN for check up --f/u in 3 months with AM with CTA --f/u in 6 months with AM for DSA -PT/OT/ROBOTIC TOY INVENTOR : } -DISPOSITION: home today -FULL CODE Please page [phone] with questions/concerns for in-house NSGY patients IMAGING: [...] who have questions please contact the health child caregiver private home that requested your imaging first. CATIONS: Scheduled [...] IR Arteriogram Cerebral 05/19/2022 Joanna Watts MD [facility] INTERVENTIONL RAD IR DRAIN CHECK/CHANGE/REMOVE 11/20/2017 IR Drain Check/Change/Remove 11/20/2017 Marcos Dey MD [facility] INTERVENTIONL RAD IR MEDIPORT REMOVAL 01/25/2018 IR Mediport Removal 01/25/2018 Scooby Muñoz, DIRECTOR EXPERIMENTAL MEDICINE [facility] INTERVENTIONL RAD PRG EMG, LARYNX N/A 11/02/2015 FACIAL NERVE MONITORING, SETUP LARYNGEAL performed by Valentina Lucas MD at [facility] MAIN OR PRO BREAST RECONSTRUCTION IMMT/DLYD W/TISS PIGMENT PUSHER SBSQ EXPANSION Bilateral 04/26/2017 BREAST RECONSTRUCTION, IMMEDIATE OR DELAYED, W/ TISSUE PIGMENT PUSHER, INCLUDING SUBSEQUENT EXPANSION (WRVU 18.5) performed by Andre Gimenez MD at [facility] MAIN OR PRO BREAST RECONSTRUCTION W FREE FLAP Bilateral 04/26/2017 @BREAST RECONSTRUCTION W/ FREE FLAP, SUSAN (WRVU 42.58) performed by Andre Gimenez MD at [facility] LLOYD PRO BREAST RECONSTRUCTION W/LATSMS D/SI FLAP WO PRSTHC IMPL Bilateral 12/12/2017 @BREAST RECONSTRUCTION W/ LAT DORSI FLAP,W/O IMPLANT, SUSAN (WRVU 23.36) performed by Andre Gimenez MD at [facility] MAIN OR PRO DEBRIDEMENT SUBCUTANEOUS TISSUE 20 SQCM/< 06/22/2017 DEBRIDEMENT SKIN AND SUBCU, BREAST (WRVU 1.01) performed by Andre Gimenez MD at [facility] MAIN OR [facility] EXPLORE PARATHYROID GLANDS N/A 11/02/2015 PARATHYROIDECTOMY OR EXPLORATION OF PARATHYROID(S) performed by Valentina Lucas MD at [facility] OR [facility] FULL THICK GRFT TRUNK <20 SQCM Bilateral 04/26/2017 FTSG, FREE, DIR CLOSE DONOR SITE, TRUNK, 20 SQ CM OR LESS (WRVU 9.15) performed by Andre Gimenez MD at [facility] OR [facility] INCISION OF LYMPH CHANNELS Left 10/18/2018 INCISION & DRAINAGE LYMPHOCELE (WRVU 6.81) performed by Andre Gimenez MD at [facility] OR [facility] IV INJ TO TEST BLOOD FLOW IN FLAP/GRAFT Left 10/18/2018 IV INJECTION, AGENT TO TEST VASC FLOW IN FLAP OR GRAFT, ENT (WRVU 1.95) performed by Andre Gimenez MD at [facility] OR [facility] MASTECTOMY, SIMPLE, COMPLETE Bilateral 04/26/2017 MASTECTOMY, SIMPLE, COMPLETE-SUSAN (WRVU 15.85) performed by Jolie Menendez MD at [facility] OR [facility] PARTIAL REMOVAL OF RIB Bilateral 04/26/2017 EXCISION OF RIB, PARTIAL (WRVU 7.26) performed by Andre Gimenez MD at [facility] OR [facility] REMOVE ARMPITS LYMPH NODES COMPLT Left 04/26/2017 LYMPHADENECTOMY, AXILLARY, COMPLETE (WRVU 13.87) performed by Jolie Menendez MD at [facility] OR [facility] REPLACE TISSUE PIGMENT PUSHER Bilateral 12/12/2017 TISSUE PIGMENT PUSHER REPLACEMENT, WITH PERMANENT PROSTHESIS, SUSAN (WRVU 8.01) performed by Andre Gimenez MD at [facility] OR [facility] REVISION RECONSTRUCTED BREAST Left 06/22/2017 REVISION OF RECONSTRUCTED BREAST (WRVU 10.41) performed by Andre Gimenez MD at [facility] OR [facility] REVISION RECONSTRUCTED BREAST Bilateral 12/12/2017 REVISION OFRECONSTRUCTED BREAST, SUSAN (WRVU 10.41) performed by Andre Gimenez MD at [facility] OR PRO THYMECTOMY, TRANSCERVICAL N/A 11/02/2015 THYMECTOMY, TRANSCERVICAL APPROACH performed by Valentina Lucas MD at [facility] MAIN OR SHOULDER SURGERY Left UMBILICAL HERNIA [...] IR Arteriogram Cerebral 05/19/2022 Joanna Watts MD [facility] INTERVENTIONL RAD IR DRAIN CHECK/CHANGE/REMOVE 11/20/2017 IR Drain Check/Change/Remove 11/20/2017 Marcos Dey MD [facility] INTERVENTIONL RAD IR MEDIPORT REMOVAL 01/25/2018 IR Mediport Removal 01/25/2018 Scooby Muñoz, DIRECTOR EXPERIMENTAL MEDICINE [facility] INTERVENTIONL RAD PRG EMG, LARYNX N/A 11/02/2015 FACIAL NERVE MONITORING, SETUP LARYNGEAL performed by Valentina Lucas MD at [facility] MAIN OR PRO BREAST RECONSTRUCTION IMMT/DLYD W/TISS PIGMENT PUSHER SBSQ EXPANSION Bilateral 04/26/2017 BREAST RECONSTRUCTION, IMMEDIATE OR DELAYED, W/ TISSUE PIGMENT PUSHER, INCLUDING SUBSEQUENT EXPANSION (WRVU 18.5) performed by Andre Gimenez MD at [facility] MAIN OR PRO BREAST RECONSTRUCTION W FREE FLAP Bilateral 04/26/2017 @BREAST RECONSTRUCTION W/ FREE FLAP, SUSAN (WRVU 42.58) performed by Andre Gimenez MD at [facility] [place] PRO BREAST RECONSTRUCTION W/LATSMS D/SI FLAP WO PRSTHC IMPL Bilateral 12/12/2017 @BREAST RECONSTRUCTION W/ LAT DORSI FLAP,W/O IMPLANT, SUSAN (WRVU 23.36) performed by Andre Gimenez MD at [facility] MAIN OR PRO DEBRIDEMENT SUBCUTANEOUS TISSUE 20 SQCM/< 06/22/2017 DEBRIDEMENT SKIN AND SUBCU, BREAST (WRVU 1.01) performed by Andre Gimenez MD at [facility] OR [facility] EXPLORE PARATHYROID GLANDS N/A 11/02/2015 PARATHYROIDECTOMY OR EXPLORATION OF PARATHYROID(S) performed by Valentina Lucas MD at [facility] OR [facility] FULL THICK GRFT TRUNK <20 SQCM Bilateral 04/26/2017 FTSG, FREE, DIR CLOSE DONOR SITE, TRUNK, 20 SQ CM OR LESS (WRVU 9.15) performed by Andre Gimenez MD at [facility] OR [facility] INCISION OF LYMPH CHANNELS Left 10/18/2018 INCISION & DRAINAGE LYMPHOCELE (WRVU 6.81) performed by Andre Gimenez MD at [facility] OR [facility] IV INJ TO TEST BLOOD FLOW IN FLAP/GRAFT Left 10/18/2018 IV INJECTION, AGENT TO TEST VASC FLOW IN FLAP OR GRAFT, ENT (WRVU 1.95) performed by Andre Gimenez MD at [facility] OR [facility] MASTECTOMY, SIMPLE, COMPLETE Bilateral 04/26/2017 MASTECTOMY, SIMPLE, COMPLETE-SUSAN (WRVU 15.85) performed by Jolie Menendez MD at [facility] OR [facility] PARTIAL REMOVAL OF RIB Bilateral 04/26/2017 EXCISION OF RIB, PARTIAL (WRVU 7.26) performed by Andre Gimenez MD at [facility] OR [facility] REMOVE ARMPITS LYMPH NODES COMPLT Left 04/26/2017 LYMPHADENECTOMY, AXILLARY, COMPLETE (WRVU 13.87) performed by Jolie Menendez MD at [facility] OR [facility] REPLACE TISSUE PIGMENT PUSHER Bilateral 12/12/2017 TISSUE PIGMENT PUSHER REPLACEMENT, WITH PERMANENT PROSTHESIS, SUSAN (WRVU 8.01) performed by Andre Gimenez MD at [facility] OR [facility] REVISION RECONSTRUCTED BREAST Left 06/22/2017 REVISION OF RECONSTRUCTED BREAST (WRVU 10.41) performed by Andre Gimenez MD at [facility] OR [facility] REVISION RECONSTRUCTED BREAST Bilateral 12/12/2017 REVISION OFRECONSTRUCTED BREAST, SUSAN (WRVU 10.41) performed by Andre Gimenez MD at [facility] OR [facility] THYMECTOMY, TRANSCERVICAL N/A 11/02/2015 THYMECTOMY, TRANSCERVICAL APPROACH performed by Valentina Lucas MD at [facility] OR SHOULDER SURGERY Left UMBILICAL [...] and her son. Her Daughter lives in [place] and is planning on staying with her for a short while after discharge. 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 Reason for Hospitalization: flow diverting stent placement via R DRESSMAKER HELPER. Covid Vaccination Status: 1st, 2nd & booster [...] surrogate would be surrogate decision maker per [place] surrogate decision making law. (Only good for 180 days) Any patient receiving care in [place] must abide by [place] law. The hierarchy for surrogate decision making [...] (i) The agent with financial power of senior attorney or a conservator appointed in accordance [...] Current DME: none Home Address confirmed as: [address] [place] [phone] Social & Family Supports: All names listed below confirmed with patient as current and correct Extended Emergency Contact Information Primary Emergency Contact: Phillip Sandoval Address: [address] [place] [phone] [facility] Relation: Spouse Current Care [...] time Health/Prescription Coverage: Primary Insurance: MVP Payor: P / Plan: P [place] / Product Type: *No Product type* / Secondary Insurance: N/A ; Prescription Coverage: Yes Preferred Pharmacy: [facility] - [place], [place] - [address] [facility] [address] [facility] - [place], [place] - [address] [place] [address] [facility] - [place], [place] - [address] [facility] [address] [facility] [address] - [place], [place] - [address] [facility] [address] [facility] [address] [place] Status: Patient is a : No Primary Care Provider confirmed: Trinh Coates MD [phone] Patient/Caregiver Goals of Treatment: return home when medically ready for discharge. Potential Needs for Transition of Care: none Agency Referrals: Not Applicable Transportation: no concerns Transportation Anticipated: family or friend will provide Concerns to be Addressed: denies needs/concerns at this time Assessment: Patient is admitted to neurosurgery service for flow diverting stent placement via R DRESSMAKER HELPER. Plan: patient will have treviño removed, will need to work with PT/OT/ROBOTIC TOY INVENTOR, team is hoping to discharge today. A member of the Care Management team will continue to monitor progress, follow for continuity of care and assist with transition of care planning. Rachna VIGIL RN Phone: [phone] Pager: [phone] documented in this encounter Plan of Treatment Upcoming Encounters Date Type Department Care Team (Late st Contact Info) Description 01/22/2024 10:30 AM EST Appointment Mammography/[place] [phone] Ladi Mendosa MD [facility] [address] [place] [address] 01/30/2024 11:30 AM EST Office Visit Dermatology at [facility] [address] [phone] Nilda Luis MD [facility] [place] [address] 02/14/2024 7:30 AM EST Appointment Radiology at [facility] [place] [phone] Joanna Watts MD [facility] [place] [address] documented as of this encounter Procedures Procedure Name Priority Date/Time Associated Diagnosis Comments HEMOGRAM Routine 07/25/2022 2:21 AM EDT DIFFERENTIAL, AUTOMATED Routine 07/25/2022 2:21 AM EDT CBC (WITH DIFF) Routine 07/25/2022 2:21 AM EDT PHOSPHORUS Routine 07/25/2022 2:21 AM EDT MAGNESIUM Routine 07/25/2022 2:21 AM EDT BASIC METABOLIC PANEL Routine 07/25/2022 2:[address] HEAD WO CONTRAST (GENERIC) STAT 07/24/2022 12:21 PM EDT POCT GLUCOSE Routine 07/24/2022 11:58 AM EDT Perm Occlusion/Embolizati on, Percut, Event Executive ([id number]) 07/24/2022 7:37 AM EDT AXEL pipeline documented in this encounter Results * CT Angiogram [place] (11/08/2022 12:15 PM EDT) Anatomical [...] who have questions please contact the health child caregiver private home that requested your imaging first. ? 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 No evidence for recurrence. Apparent filling defect within the right ICA at the horizontal/cavernous junction which may reflect dissection. Anterior communicating artery complex is normal. Vertebrobasilar system is normal. No central branch occlusion in the [place]. origin left BIOSTATISTICS TEACHER. 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 No evidence for recurrence. Apparent filling defect within theright ICA at the horizontal/cavernous junction which may reflect dissection.Anterior communicating artery complex is normal. Vertebrobasilar system is normal.No central branch occlusion in the [place]. origin left BIOSTATISTICS TEACHER. 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 Thank you for letting us participate in the care of this patient. If youare a health care provider and have any questions regarding this report,please contact the number below. For patients who have questions please contactthe health child caregiver private home that requested your imaging first. Joanna Watts MD IMG CT ORDERABLES * (ABNORMAL) Differential, Automated (07/25/2022 2:21 AM EDT) Neutrophil % 84.0 % [facility] Neutrophil Absolute 11.68(H) 1.70 - 6.10 x10(3)/mc L [facility] Lymph % 7.7 % [facility] Lymphocytes Abs 1.1 0.9 - 3.2 x10(3)/mc L [facility] Monocyte % 7.3 % [facility] Monocyte Abs 1.0(H) 0.3 - 0.9 x10(3)/mc L [facility] Eos % 0.0 % [facility] Eosinophils Abs 0.0 0.0 - 0.4 x10(3)/mc L [facility] Basophil % 0.3 % [facility] Baso Absolute 0.0 0.0 - 0.1 x10(3)/mc L [facility] Immature Gran % 0.70 % [facility] Comment: Immature granulocytes(IG's)percentage and absolute count will include metamyelocytes, myelocytes, and promyelocytes. Blood smears from CBCs yielding IG's will be scanned manually for concordance. If this scan disagrees with the automated IG or if promyelocytes are noted, a manual differential will be performed. Immature Gran Absolute 0.10(H) 0.00 - 0.04 x10(3)/mc L [facility] Blood 07/25/2022 2:21 AM EDT 07/25/2022 2:26 AM EDT Narrative Resulting Agency Comment Spec In Lab Senia CALLES HEMATOLOGY ORDERABLE S Performing Organization Address City/[facility]/ZIP Co de Phone Number [facility] [place] [address] * (ABNORMAL) Hemogram (07/25/2022 2:21 AM EDT) White Blood Cell 13.9(H) 4.0 - 9.5 x10(3)/mc L [facility] Red Blood Cell 3.37(L) 4.00 - 5.21 x10(6)/mc L [facility] Hemoglobin 10.5(L) 11.7 - 15.5 g/dL [facility] Hematocrit 32.0(L) 35.7 - 45.8 % [facility] Mean Cell Volume 95.0(H) 82.6 - 94.4 fL [facility] Mean Cell Hemoglobin 31.2 27.1 - 32.0 pg [facility] Mean Cell Hemoglobin Concentration 32.8 31.7 - 35.0 g/dL [facility] Platelet 266 145 - 357 x10(3)/mc L [facility] RDW Standard Deviation 48.1(H) 37.0 - 46.0 fL [facility] RDW coefficient of variation 13.8 11.5 - 14.1 % [facility] Mean Platelet Volume 9.0 7.6 - 12.9 fL [facility] NRBC% auto 0.0 % [facility] NRBC Absolute 0.000 0.000 - 0.000 x10(3)/mc L [facility] Blood 07/25/2022 2:21 AM EDT 07/25/2022 2:26 AM EDT Narrative Resulting Agency Comment Spec In Lab Senia CALLES HEMATOLOGY ORDERABLE S Performing Organization Address City/[facility]/ZIP Co de Phone Number [facility] [place] [address] * Phosphorus (07/25/2022 2:21 AM EDT) Phosphorus 2.7 2.5 - 4.5 mg/dL [facility] Blood 07/25/2022 2:21 AM EDT 07/25/2022 2:26 AM EDT Narrative Resulting Agency Comment Spec In Lab Joanna Watts MD CHEMISTRY ORDERABLE S Performing Organization Address [facility] Co de Phone Number [facility] [place] [address] * Magnesium (07/25/2022 2:21 AM EDT) Magnesium 0.74 0.69 - 1.07 mmol/L [facility] Blood 07/25/2022 2:21 AM EDT 07/25/2022 2:26 AM EDT Narrative Resulting Agency Comment Spec In Lab Joanna Watts MD CHEMISTRY ORDERABLE S Performing Organization Address [facility] Co de Phone Number [facility] [place] [address] * (ABNORMAL) Basic Metabolic Panel (non-fasting) (07/25/2022 2:21 AM EDT) Glucose 189 65 - 199 mg/dL [facility] Comment:Diabetes: >=200 mg/d L plus symptoms Blood Urea Nitrogen 33(H) 8 - 18 mg/dL [facility] Creatinine 1.46(H) 0.70 - 1.20 mg/dL [facility] Sodium 141 135 - 145 mmol/L [facility] Potassium 4.2 3.5 - 5.0 mmol/L [facility] Comment: Please note: ??Patients with WBC >100,000 may have falsely elevated Potassium levels. ??For accurate Potassium quantification in these patients send serum separator tube (gold top) for subsequent determinations. ??Contact the Clinical Chemistry Laboratory if there are any questions. Chloride 112(H) 98 - 107 mmol/L [facility] Carbon Dioxide 18(L) 22 - 31 mmol/L [facility] Anion Gap 11 5 - 15 mmol/L [facility] Calcium 7.7(L) 8.5 - 10.5 mg/dL [facility] Est Glomerular Filtration Rate 41(L) >=60 mL/min/1. 73 m?? [facility] Comment: This patient's estimated GFR was [...] Lab Joanna Watts MD CHEMISTRY ORDERABLE S [facility] [place] [address] * CT Head wo Contrast (Generic) (07/24/2022 [...] who have questions please contact the health child caregiver private home that requested your imaging first. ? Electronically signed by: Mitch Pastel, [facility] ([phone]), at 07/24/2022 12:27 PM Narrative 07/24/2022 12:27 [...] patients who have questions please contactthe health child caregiver private home that requested your imaging first. Electronically signed by: LORENA Munson [facility]([phone]), at 07/24/2022 12:27 PM Joanna Watts MD IMG CT ORDERABLES * POCT Glucose (07/24/2022 11:58 AM EDT) [facility] Signature Glucose, POC 113 65 - 199 mg/dL [facility] Comment: Supplemental ranges: <140 mg/dL before meals <180 mg/dL all other times of the day Blood 07/24/2022 11:5 8 AM EDT 07/24/2022 11:58 AM EDT Joanna Watts MD POINT OF CARE TEST ORDERABLES [facility] [place] [address] documented in this encounter Visit Diagnoses Diagnosis [...] EDT New Bag 07/24/2022 7:37 AM EDT Bag 07/24/2022 7:17 AM EDT 1,000 mLs [...] Verify 07/25/2022 6:00 AM EDT 25 mL/hr 07/25/2022 4:52 AM EDT 2 g 25 [...] 0928 (Given - Provid er: Enoch Lewis RN) [...] DO NOT SPLIT, CRUSH OR OPEN, Routine 09 (Given - Provid er: Enoch Lewis RN) [...] Palomino RN)0600 (Rate/Dose Verify - Provider: Morena Shanks RN)0652 (Stopped - Provider: Morena Shanks RN) rosuvastatin [...] Barrera RN)1255 (Rate/Dose Change - Provider: Usman Barrera RN)1300 (Rate/Dose Change - Provider: Usman Barrera RN)1310 (Rate/Dose Change - Provider: Usman Barrera RN)1320 (Stopped - Provider: Usman Barrera RN)1600 (Restarted - Provider: Usman Barrera RN)1610 (Rate/Dose Change - Provider: Usman Barrera RN)1700 (Rate/Dose Change - Provider: Usman Barrera RN)1935 (Rate/Dose Verify - Provider: Morena Shanks RN)2200 (Rate/Dose Verify - Provider: Morena Shanks RN)2346 (Rate/Dose Verify - Provider: Mroena Shanks RN) 0400 (Rate/Dose Verify - Provider: Morena Shanks RN)0600 (Rate/Dose Verify - Provider: Morena Shanks RN)0627 (Stopped - Provider: Morena Shanks RN) sodium chloride 0.9% infusion (CANCELED) 100 mL/hr, Intravenous, CONTINUOUS, Starting on Sun07/24/22 at 1245, Until Sun07/25/22 at 1517, PACU Recovery 1239 (New Bag - Provider: Usman Barerra RN)1935 (Rate/Dose Verify - Provider: Morena Shanks RN)2200 (Rate/Dose Verify - Provider: Morena Shanks RN)2346 (Rate/Dose Verify - Provider: Morena Shanks RN) 0400 (Rate/Dose Verify - Provider: Morena Shanks RN)0600 (Rate/Dose Verify - Provider: Morena Shanks RN)0808 (New Bag - Provider: Sumi Vela RN)1150 (Stopped - Provider: Sumi Vela RN) PRN [...] Recovery, Routine 1207 (Given - Provider: Lou Stock V RN) heparin (porcine) (1,000 units/mL) injection 3,000 [...] 1840, Nausea 1200 (Given - Provider: Usman Barrera, JENNYFER) oxyCODONE (Roxicodone) tablet 5 mg 5 mg, [...] Routine documented in this encounter Care Teams Lithoduplicator Operator Relationship Specialty Start Date End Date Trinh Coates MD [facility] [address] [place] [address] PCP - General 01/11/10 documented as of this encounter
--- OUTSIDE RECORDS SUMMARY | 2023-09-25 11:42 | XMS_ITS | Encounter Summary ---
Author Organization [facility] Address [facility] [place] [address] Care Team Providers Care Therapeutic Dietitian Name Role Phone Trinh Coates MD Primary Care Provider [phone] Reason for Visit * Reason Comments Skin Lesion Encounter Details Date Type Department Care Team (Late st Contact Info) Description 09/26/2022 10:00 AM EDT Office Visit Dermatology at [facility] [address] [place] [address] Jay Luis MD [facility] [place] [place] [address] Actinic cheilitis; Seborrheic keratosis; Nevus; Sebaceous hyperplasia [...] Psoriasis (Mother) Social History Occupation: Works at [employer] Pre-Procedure Questions Details Allergy to lidocaine, epinephrine, [...] No treatment necessary. 4. Actinic Cheilitis - [place], erythematous patch on the upper right cutaneous [...] November for 5FU f/u []Note routed to coverage analyst []Recall placed in scheduling system [x]Appointment scheduled at checkout Scribe attestation: Rochelle Diehl [facility] has performed the documentation for this encounter in the presence of and acting as a scribe for JAY LUIS MD. I performed the above scribed service and agree with the accuracy of the documentation in this encounter. Reviewed and signed by: JAY LUIS MD Dermatology [facility] documented in this encounter Plan of Treatment Upcoming Encounters Date Type Department Care Team (Late st Contact Info) Description 01/22/2024 10:30 AM EST Appointment Mammography/[place] [phone] Ladi Mendosa MD [facility] HEMATOLOGY AND ONCOLOGY [place], [place] [id number] 01/30/2024 11:30 AM EST Office Visit Dermatology at [facility] [address] [place] [address] Jay Luis MD [facility] [place] [address] 02/14/2024 7:30 AM EST [place] [phone] Joanna Watts MD [facility] [place] [address] documented as of this encounter Visit Diagnoses Diagnosis Actinic cheilitis Acute dermatitis due to solar radiation Seborrheic keratosis Other seborrheic keratosis Nevus Benign neoplasm of skin, site unspecified Sebaceous hyperplasia Other specified disease of sebaceous glands documented in this encounter Care Teams Therapeutic Dietitian Relationship Specialty Start Date End Date Trinh Coates MD [address] [place], [place] [address] [address] [place] [address] PCP - General 01/11/10 documented as of this encounter
--- OUTSIDE RECORDS SUMMARY | 2023-09-25 11:42 | XMS_ITS | Encounter Summary ---
Author Organization [facility] Address [facility] [place] [address] Care Team Providers Care Cash Analyst Name Role Phone Trinh Coates MD Primary Care Provider [phone] Encounter Details Date Type Department Care Team [...] 01/22/2024 10:30 AM EST Appointment Mammography/[place] [address] Ladi Mendosa MD [facility] DR HEMATOLOGY [place] [address] 01/30/2024 11:30 AM EST Office Visit Dermatology at [facility] [address] [place] [phone] Nilda Luis MD [facility] [place] [address] 02/14/2024 7:30 AM EST [place] [address] Joanna Watts MD [facility] [place] [address] documented as of this encounter Visit Diagnoses Not on filedocumented in this encounter Care Teams Cash Analyst Relationship Specialty Start Date End Date Trinh Coates MD [facility] [address] [address] PCP - General 01/11/10 documented as of this encounter
--- OUTSIDE RECORDS SUMMARY | 2023-09-25 11:42 | XMS_ITS | Encounter Summary ---
Author Organization [facility] Address [facility] [place] [address] Care Team Providers Care Emissions Testing And Repair Technician Name Role Phone Trinh Coates MD Primary Care Provider [phone] Encounter Details Date Type Department Care Team (Late st Contact Info) Description 05/22/2022 [place] [phone] Joanna Watts MD [facility] [place] [address] Social History Tobacco Use Types Packs/Day Years [...] Telehealth with Dr. Watts, [place] for time of call. Closing Encounter * Telephone Encounter - Lindsey Gonzalez - 05/22/2022 2:59 PM EDT Patient called in will be responding to Jazmyn's Cashier Live message through the portal. Please advise. * Telephone Encounter - Jazmyn Bowen - 05/22/2022 2:08 PM EDT LMOM for patient to call back to schedule Appt with Dr. Watts Sent a [email or web address] message to patient as well regarding scheduling. PSC Scheduling Instructions Provider: Joanna Watts MD Visit Type: OV Appt Note: OV, To Discuss angiogram results Angio 05/19 Imaging appt needed?: None PSC to ask patient Screening Questions? N/A PSC to coordinate same day appt with Radiology? N/A Additional Info Needed: Schedule next in person appt unless pt can get to [place], Dr. Watts is not licensed in [place] so can not do a Telehealth appt. From: Joanna Watts <[email or web address]> Sent: Thursday, May 19, 2022 11:38 AM To: Jazmyn Bowen [email or web address]> Subject: Fwd: New flow diverter case Can you set this patient up with a virtual visit to discuss questions before the procedure sometimenext week or the following? Thanks! Joanna Watts MD documented in this encounter Plan of Treatment Upcoming Encounters Date Type Department Care Team (Late st Contact Info) Description 01/22/2024 10:30 AM EST Appointment Mammography/[place] [address] Ladi Mendosa MD [facility] [place] [address] 01/30/2024 11:30 AM EST Office Visit Dermatology at [place] [address] [place] [phone] Nilda Luis MD [facility] [place] [address] 02/14/2024 7:30 AM EST [place] [phone] Joanna Watts MD [facility] [place] [address] documented as of this encounter Visit Diagnoses Not on filedocumented in this encounter Care Teams Emissions Testing And Repair Technician Relationship Specialty Start Date End Date Trinh Coates MD [facility] [address] [facility] [address] [place] [address] PCP - General 01/11/10 documented as of this encounter
--- OUTSIDE RECORDS SUMMARY | 2023-09-25 11:42 | XMS_ITS | Encounter Summary ---
Author Organization [facility] Address [facility] [place] [address] Care Team Providers Care Director Dermatology Name Role Phone Trinh Coates MD Primary Care Provider [phone] Encounter Details Date Type Department Care Team (Latest Contact Info) Description 08/24/2022 9:40 AM EDT TH Visit (TeleHealth) [place] [address] Araceli Levi, CANDY DIPPER [facility] [address] 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 [...] as of this encounter Progress Notes * Aarceli Levi APRN - 08/24/2022 9:40 AM EDT [...] 01/22/2024 10:30 AM EST Appointment Mammography/[place] [phone] Ladi Mendosa MD [facility] [address] [place] [address] 01/30/2024 11:30 AM EST Office Visit Dermatology at [facility] [address] [place] [address] Nilda Luis MD [facility] [place] [address] 02/14/2024 7:30 AM EST Appoint[place] [address] Joanna Watts MD 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
--- OUTSIDE RECORDS SUMMARY | 2023-09-25 11:42 | XMS_ITS | Encounter Summary ---
Author Organization [facility] [place] [address] Care Team Providers Care Card Setter Name Role Phone Trinh Coates MD Primary Care Provider [phone] Encounter Details Date Type Department Care Team (Late st Contact Info) Description 05/24/2022 [place] [address] Felisa Chavis Social History Tobacco [...] 01/22/2024 10:30 AM EST Appointment Mammography/[place] [address] Ladi Mendosa MD [facility] DR HEMATOLOGY [place] [address] 01/30/2024 11:30 AM EST Office Visit Dermatology at [facility] [address] [place] [address] Nilda Luis MD [facility] [place] [address] 02/14/2024 7:30 AM EST [place] [address] Joanna Watts MD [facility] [place] [address] documented as of this encounter Visit Diagnoses Not on filedocumented in this encounter Care Teams Card Setter Relationship Specialty Start Date End Date Trinh Coates MD [facility] [address] [place] [address] PCP - General 01/11/10 documented as of this encounter
--- OUTSIDE RECORDS SUMMARY | 2023-09-25 11:42 | XMS_ITS | Encounter Summary ---
Author Organization [facility] Address [facility] [place] [address] Care Team Providers Care Engineering Program Analyst Name Role Phone Trinh Coates MD Primary Care Provider [phone] Encounter Details Date Type Department Care Team (Latest Contact Info) Description 07/20/2022 11:30 AM EDT Laboratory Appointment Lab [address] [place] [address] intermediate manager current use of antithrombotics/ant iplatelets; 4mm AXEL [...] 01/22/2024 10:30 AM EST Appointment Mammography[place] [address] Ladi Mendosa MD [facility] DR HEMATOLOGY [place] [address] 01/30/2024 11:30 AM EST Office Visit Dermatology at [facility] [address] [place] [address] Nilda Luis MD [facility] [place] [address] 02/14/2024 7:30 AM EST Appointment Radiology at [facility] [place] [address] Joanna Watts MD [facility] [place] [address] documented as of this encounter Procedures Procedure Name Priority Date/Time Associated Diagnosis Comments P2Y12 ANTIPLATELET ([facility]) Routine 07/20/2022 11:44 AM EDT intermediate manager current use of antithrombotics/ant iplatelets 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 BASIC METABOLIC PANEL Routine 07/20/2022 11:44 AM EDT High risk medication use documented in this encounter Results * (ABNORMAL) Basic Metabolic Panel (non-fasting) (07/20/2022 11:44 AM EDT) Glucose 92 65 - 199 mg/dL [facility] Comment:Diabetes: >=200 mg/d L plus symptoms Blood Urea Nitrogen 36(H) 8 - 18 mg/dL [facility] Creatinine 1.70(H) 0.70 - 1.20 mg/dL [facility] Sodium 140 135 - 145 mmol/L [facility] Potassium 4.8 3.5 - 5.0 mmol/L [facility] Comment: Please note: ??Patients with WBC >100,000 may have falsely elevated Potassium levels. ??For accurate Potassium quantification in these patients send serum separator tube (gold top) for subsequent determinations. ??Contact the Clinical Chemistry Laboratory if there are any questions. Chloride 105 98 - 107 mmol/L [facility] Carbon Dioxide 24 22 - 31 mmol/L [facility] Anion Gap 11 5 - 15 mmol/L [facility] Calcium 9.5 8.5 - 10.5 mg/dL [facility] Est Glomerular Filtration Rate 34(L) >=60 mL/min/1. 73 m?? [facility] Comment: This patient's estimated [...] MD CHEMISTRY ORDERABLE S Performing Organization Address City/[facility]/ZIP Co de Phone Number [facility] [place] [address] * P2Y12 Antiplatelet ([facility]) (07/20/2022 11:44 AM EDT) [facility] Signature P2Y12 36 PRU [facility] Comment: Test results are reported in [...] Comment Spec In Lab Araceli Levi APRN HEMATOLOGY ORDERABLE S Performing Organization Address City/[facility]/ZIP Co de Phone Number [facility] [place] [address] documented in this encounter Visit Diagnoses Diagnosis intermediate manager current use of antithrombotics/antiplatelets Encounter for long-term (current) use of antiplatelets/antithrombotics 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
--- OUTSIDE RECORDS SUMMARY | 2023-09-25 11:42 | XMS_ITS | Encounter Summary ---
Author Organization [facility] Address [facility] [place] [address] Care Team Providers Care Supervisor Area Name Role Phone Trinh Coates MD Primary Care Provider [phone] Encounter Details Date Type Department Care Team (Late st Contact Info) Description 05/25/2022 10:40 AM EDT TH Visit (TeleHealth) [place] [address] Joanna Watts MD [facility] [address] Right internal carotid artery aneurysm Social History [...] IR Drain Check/Change/Remove 11/20/2017 Marcos Dey MD [facility] INTERVENTIONL RAD ??? IR MEDIPORT REMOVAL 01/25/2018 IR Mediport Removal 01/25/2018 Scooby Muñoz, SURVEILLANCE SYSTEMS ANALYST [facility] INTERVENTIONL RAD ??? PRG EMG, LARYNX N/A 11/02/2015 FACIAL NERVE MONITORING, SETUP LARYNGEAL performed by Valentina uLcas MD at [facility] MAIN OR ??? PRO BREAST RECONSTRUCTION IMMT/DLYD W/TISS MANAGER LAW SBSQ EXPANSION Bilateral 04/26/2017 BREAST RECONSTRUCTION, IMMEDIATE OR DELAYED, W/ TISSUE MANAGER LAW, INCLUDING SUBSEQUENT EXPANSION (WRVU 18.5) performed by Andre Gimenez MD at [facility] MAIN OR ??? PRO BREAST RECONSTRUCTION W FREE FLAP Bilateral 04/26/2017 @BREAST RECONSTRUCTION W/ FREE FLAP, SUSAN (WRVU 42.58) performed by Andre Gimenez MD at [facility] LLOYD ??? PRO BREAST RECONSTRUCTION W/LATSMS D/SI FLAP WO PRSTHC IMPL Bilateral 12/12/2017 @BREAST RECONSTRUCTION W/ LAT DORSI FLAP,W/O IMPLANT, SUSAN (WRVU 23.36) performed by Andre Gimenez MD at [facility] MAIN OR ? ? PRO DEBRIDEMENT SUBCUTANEOUS TISSUE 20 SQCM/< 06/22/2017 DEBRIDEMENT SKIN AND SUBCU, BREAST (WRVU 1.01) performed by Andre Gimenez MD at [facility] OR ??? PRO EXPLORE PARATHYROID GLANDS N/A 11/02/2015 PARATHYROIDECTOMY OR EXPLORATION OF PARATHYROID(S) performed by Valentina Lucas MD at [facility] OR ? ? PRO FULL THICK GRFT TRUNK <20 SQCM Bilateral 04/26/2017 FTSG, FREE, DIR CLOSE DONOR SITE, TRUNK, 20 SQ CM OR LESS (WRVU 9.15) performed by Andre Gimenez MD at [facility] OR ??? PRO INCISION OF LYMPH CHANNELS Left 10/18/2018 INCISION & DRAINAGE LYMPHOCELE (WRVU 6.81) performed by Andre Gimenez MD at [facility] OR ??? PRO IV INJ TO TEST BLOOD FLOW IN FLAP/GRAFT Left 10/18/2018 IV INJECTION, AGENT TO TEST VASC FLOW IN FLAP OR GRAFT, ENT (WRVU 1.95) performed by Andre Gimenez MD at [facility] OR ??? PRO MASTECTOMY, SIMPLE, COMPLETE Bilateral 04/26/2017 MASTECTOMY, SIMPLE, COMPLETE-SUSAN (WRVU 15.85) performed by Jolie Menendez MD at [facility] OR ??? PRO PARTIAL REMOVAL OF RIB Bilateral 04/26/2017 EXCISION OF RIB, PARTIAL (WRVU 7.26) performed by Andre Gimenez MD at [facility] OR ??? PRO REMOVE ARMPITS LYMPH NODES COMPLT Left 04/26/2017 LYMPHADENECTOMY, AXILLARY, COMPLETE (WRVU 13.87) performed by Jolie Menendez MD at [facility] OR ??? PRO REPLACE TISSUE MANAGER LAW Bilateral 12/12/2017 TISSUE MANAGER LAW REPLACEMENT, WITH PERMANENT PROSTHESIS, SUSAN (WRVU 8.01) performed by Andre Gimenez MD at [facility] OR ??? PRO REVISION RECONSTRUCTED BREAST Left 06/22/2017 REVISION OF RECONSTRUCTED BREAST (WRVU 10.41) performed by Andre Gimenez MD at [facility] OR ??? PRO REVISION RECONSTRUCTED BREAST Bilateral 12/12/2017 REVISION OFRECONSTRUCTED BREAST, SUSAN (WRVU 10.41) performed by Andre Gimenez MD at [facility] OR ??? PRO THYMECTOMY, TRANSCERVICAL N/A 11/02/2015 THYMECTOMY, TRANSCERVICAL APPROACH performed by Valentina Lucas MD at [facility] MAIN OR ??? SHOULDER SURGERY Left ??? [...] stent for this location of aneurysm and [place] vessel configuration. The aneurysm is small, but [...] worse on DAPT than otherwise. We discussed thattaniya would be willing to receive a blood [...] attending Section of Neurosurgery Department of Surgery [facility] documented in this encounter Plan of Treatment Upcoming Encounters Date Type Department Care Team (Late st Contact Info) Description 01/22/2024 10:30 AM EST Appointment Mammography/[place] [phone] Ladi Mendosa MD [facility] [address] [place] [address] 01/30/2024 11:30 AM EST Office Visit Dermatology at [address] [address] Nilda Luis MD [facility] [place] [address] 02/14/2024 7:30 AM EST [place] [address] Joanna [place] MD [facility] [place] [address] documented as of this encounter Visit Diagnoses Diagnosis Right internal carotid artery aneurysm Cerebral aneurysm, nonruptured documented in this encounter Care Teams Supervisor Area Relationship Specialty Start Date End Date Trinh Coates MD [facility] [address] [place] [address] PCP - General 01/11/10 documented as of this encounter
--- OUTSIDE RECORDS SUMMARY | 2023-09-25 11:42 | XMS_ITS | Encounter Summary ---
Author Organization [facility] Address [facility] [place] [address] Care Team Providers Care Pediatric Assistant Name Role Phone Trinh Coates MD Primary Care Provider [phone] Encounter Details Date Type Department Care Team (Late st Contact Info) Description 07/20/2022 1:00 PM EDT Office [place] [address] Araceli Levi APRN [facility] [place] [address] 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 [...] this encounter Progress Notes * Araceli Levi, DISTRICT FIRE CHIEF - 07/20/2022 1:00 PM EDT CHIEF COMPLAINT [...] 01/22/2024 10:30 AM EST Appointment Mammography/[place] [phone] Ladi Mendosa MD [facility] [place] [address] 01/30/2024 11:30 AM EST Office Visit Dermatology at 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
--- OUTSIDE RECORDS SUMMARY | 2023-09-25 11:42 | XMS_ITS | Encounter Summary ---
Author Organization [facility] Address [facility] [place] [address] Care Team Providers Care Data Center Architect Name Role Phone Trinh Coates MD Primary Care Provider [phone] Encounter Details Date Type Department Care Team (Late st Contact Info) Description 06/30/2022 Orders Only Dermatology at [facility] [address] [place] [address] Nilda Luis MD [facility] [place] [address] High risk medication use Social History Tobacco [...] 10:30 AM EST Appointment Mammography/[place] [address] Ladi Mendosa MD [facility] [place] [address] 01/30/2024 11:30 AM EST Office Visit Dermatology at [facility] [address] [place] [phone] Nilda Luis MD [facility] DERMATOLOGY [place], [place] [address] 02/14/2024 7:30 AM EST Appointment [place] [address] Joanna Watts MD [facility] [place] [address] documented as of this encounter Results * (ABNORMAL) Basic Metabolic Panel (non-fasting) (07/20/2022 11:44 AM EDT) [facility] Glucose 92 65 - 199 mg/dL [facility] Comment:Diabetes: >=200 mg/d L plus symptoms Blood Urea Nitrogen 36(H) 8 - 18 mg/dL [facility] Creatinine 1.70(H) 0.70 - 1.20 mg/dL [facility] Sodium 140 135 - 145 mmol/L [facility] Potassium 4.8 3.5 - 5.0 mmol/L [facility] Comment: Please note: ??Patients with WBC >100,000 may have falsely elevated Potassium levels. ??For accurate Potassium quantification in these patients send serum separator tube (gold top) for subsequent determinations. ??Contact the Clinical Chemistry Laboratory if there are any questions. Chloride 105 98 - 107 mmol/L [facility] Carbon Dioxide 24 22 - 31 mmol/L [facility] Anion Gap 11 5 - 15 mmol/L [facility] Calcium 9.5 8.5 - 10.5 mg/dL [facility] Est Glomerular Filtration Rate 34(L) >=60 mL/min/1. 73 m?? [facility] Comment: This patient's [...] MD CHEMISTRY ORDERABLE S Performing Organization Address City/State/[facility] [place] [address] documented in this encounter Visit Diagnoses Diagnosis High risk medication use Encounter for long-term (current) use of other medications documented in this encounter Care Teams Data Center Architect Relationship Specialty Start Date End Date Trinh Coates MD [address] [place] [address] PCP - General 01/11/10 documented as of this encounter
--- OUTSIDE RECORDS SUMMARY | 2023-09-25 11:42 | XMS_ITS | Encounter Summary ---
Author Organization [facility] Address [facility] [place] [address] Care Team Providers Care Inventory Manager Name Role Phone Trinh Coates MD Primary Care Provider [phone] Encounter Details Date Type Department Care Team (Late st Contact Info) Description 07/20/2022 2:30 PM EDT [place] [address] Social History Tobacco Use Types Packs/Day Years [...] 01/22/2024 10:30 AM EST Appointment Mammography/[place] [address] Ladi Mendosa MD [facility] HEMATOLOGY [place] [address] 01/30/2024 11:30 AM EST Office Visit Dermatology at [facility] [address] [place] [phone] Nilda Luis MD [facility] [place] [address] 02/14/2024 7:30 AM [place] [phone] Joanna Watts MD [facility] [place] [address] documented as of this encounter Visit Diagnoses Not on filedocumented in this encounter Care Teams Inventory Manager Relationship Specialty Start Date End Date Trinh Coates MD [facility] [address] [facility] [address] [place] [address] PCP - General 01/11/10 documented as of this encounter
--- OUTSIDE RECORDS SUMMARY | 2023-09-25 11:42 | XMS_ITS | Encounter Summary ---
Author Organization [facility] [place] [address] Care Team Providers Care Truck Rental Clerk Name Role Phone Trinh Coates MD Primary Care Provider [phone] Reason for Referral * Diagnostic Test (Routine) - Closed Specialty Diagnoses / Procedures Referred By Diamante marin Referred To Contact Radiology Diagnoses Right internal carotid artery aneurysm Procedures IR Arteriogram Cerebral Araceli Levi APRN [facility] [place] [place] [address] [place] [address] Referral ID Status Reason Start Date Expiration Date V isits Requested Visits Authorized [id number] Closed Specialty Service Requested 09/20/2022 03/23/2024 1 1 Encounter Details Date Type Department Care Team (Late st Contact Info) Description 09/19/2022 [place]phone [place] [address] Rachna Guerrero RN Social History [...] of this encounter Progress Notes * Araceli Levi, AARTI - 09/20/2022 12:07 PM EDT NEURORADIOLOGY BRIEF PRE-PROCEDURE NOTE Name: Wendy Sandoval Date of : 1965 Referring provider: Araceli Levi APRN Indication: AXEL aneurysm stent placement Planned Procedure: diagnostic cerebral angiogram, Dr. Watts Chief Complaint/HPI: Wedny Sandoval is a 57 y.o. female Allergies: [...] - 09/19/2022 1:51 PM EDT Copied from [facility] #[id number]. Topic: Specialty Dept CRMs - Generic Call >> Sep 19, 2022 1:41 PM Lindsey Gonzalez wrote: Specialist: Dr. Watts Relationship (if other than patient-full name): Dr. Wood from [facility] Reason for Call: reaching out to Dr. Watts, provider stated this is not an urgent request, but wondering if Dr. Watts can call to discuss patient coming off of Plavix for an elective surgery. Provider wants to consult about this prior to setting up the appointment for patient. [phone] documented in this encounter Plan of Treatment Upcoming Encounters Date Type Department Care Team (Ricardo Contact Info) Description 01/22/2024 10:30 AM EST Appointment Mammography/[place] [address] Ladi Mendosa MD [facility] [place] [address] 01/30/2024 11:30 AM EST Office Visit Dermatology at [facility] [address] [place] [address] Nilda Luis MD [facility] [place] [address] 02/14/2024 7:30 AM EST App[place] [address] Joanna Watts MD [facility] [place] [address] documented as of this encounter [...] who have questions please contact the health spiritual care coordinator that requested your imaging first. ? Electronically signed by: Joanna Watts MD, [facility] ([phone]), at 02/06/2023 9:38 AM Narrative 02/06/2023 9:38 [...] being administered. The above times reflect physician/patient gyna-qs-[id number] time. MEDICATIONS: 1% Lidocaine 10 ml SC [...] ??0.035 x 180 cm angled Glidewire 4. ??5-Citizen [place] ??45 cm vascular sheath. 5. ??5-Citizen [place] VERT catheter, 100cm 6. ??6-Citizen [place] Angio-Seal Device PROCEDURE COMMENTS: After explaining the [...] exchanged for an introducer followed by a 5-Citizen [place] ??45 cm vascular sheath utilizing a Bentson wire. ??The sheath was then double flushed and hooked to heparinized saline via pressure bag. ??Subsequently a 5-Citizen [place] ??VERT catheter and wire were used to selectively catheterize the vessels enumerated above. Multiple angiographic runs were performed. At the conclusion of the procedure, all catheters and equipment were removed. ??A 6 [place] Angio-Seal closure device was subsequently prepared and [...] wasbeing administered. The above times reflect physician/patient qlsv-mm-pbhmkhfv. MEDICATIONS: 1% Lidocaine 10 ml SC Fentanyl [...] 0.035 x 180 cm angled Glidewire 4. 5-Citizen [place] 45 cm vascular sheath. 5. 5-Citizen [place] VERT catheter, 100cm 6. 6-Citizen [place] Angio-Seal Device PROCEDURE COMMENTS: After explaining the [...] exchanged for an introducer followed by a 5-Citizen [place] 45 cm vascularsheath utilizing a [employer] wire. The sheath was then double flushed and hookedto heparinized saline via pressure bag. Subsequently a 5-Citizen [place] VERTcatheter and wire were used to selectively catheterize the vessels enumerated above.Multiple angiographic runs were performed. At the conclusion of the procedure, all catheters and equipment wereremoved. A 6 Citizen [place] Angio-Seal closure device was subsequently prepared and [...] patients who have questions please contactthe health spiritual care coordinator that requested your imaging first. Electronically signed by: Joanna Watts MD, [facility]([phone]), at 02/06/2023 9:38 AM Araceli Levi APRN IMG IR ORDERABLES * (ABNORMAL) Platelet count (01/24/2023 12:12 PM EST) Platelet 375(H) 145 - 357 x10(3)/mc L [facility] Immature Plt % 0.8 0.0 - 7.4 % [facility] Comment: Limitation of the Immature Platelet Fraction (IPF)-May be less reliable when the platelet count is less than 51t618/uL due to statistical imprecision. The IPF value [...] in a decreased state of production. References: [employer] The Clinical Value of the Immature Platelet Fraction (IPF) in Cell Recovery Document Number 10-1143 07/2010 [employer] The Role of the Immature Platelet Fraction (IPF) in the Differential Diagnosis of Thrombocytopenia, Document MKT-[id number] V05/02/01 P014 Blood 01/24/2023 12:1 2 PM EST 01/24/2023 12:16 PM EST Narrative Resulting Agency Comment Spec In Lab Araceli Levi CAPACITOR ASSEMBLER HEMATOLOGY ORDERABLE S Performing Organization Address City/State/[facility] Co de Phone Number [facility] [place] [address] * (ABNORMAL) Basic Metabolic Panel (non-fasting) (01/24/2023 12:12 PM EST) Glucose 76 65 - 199 mg/dL [facility] Comment:Diabetes: >=200 mg/d L plus symptoms Blood Urea Nitrogen 35(H) 8 - 18 mg/dL [facility] Creatinine 1.91(H) 0.70 - 1.20 mg/dL [facility] Sodium 143 135 - 145 mmol/L [facility] Potassium 4.5 3.5 - 5.0 mmol/L [facility] Comment: Please note: ??Patients with WBC >100,000 may have falsely elevated Potassium levels. ??For accurate Potassium quantification in these patients send serum separator tube (gold top) for subsequent determinations. ??Contact the Clinical Chemistry Laboratory if there are any questions. Chloride 106 98 - 107 mmol/L [facility] Carbon Dioxide 24 22 - 31 mmol/L [facility] Anion Gap 13 5 - 15 mmol/L [facility] Calcium 10.2 8.5 - 10.5 mg/dL [facility] Est Glomerular Filtration Rate 30(L) >=60 mL/min/1. 73 m?? 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
--- OUTSIDE RECORDS SUMMARY | 2023-09-25 11:42 | XMS_ITS | Encounter Summary ---
Author Organization [facility] Address [facility] [place] [address] Care Team Providers Care Tray Drier Name Role Phone Trinh Coates MD Primary Care Provider [phone] Reason for Visit * Reason Comments Medication Refill Encounter Details Date Type Department Care Team (Late st Contact Info) Description 06/15/2022 Refill Obstetrics [place] [address] Joseaf Herbert APRN [facility] [place] [address] Social History Tobacco Use Types Packs/Day Years [...] 01/22/2024 10:30 AM EST Appointment Mammography/[place] [address] Ladi Mendosa MD [facility] [address] [place] [address] 01/30/2024 11:30 AM EST Office Visit Dermatology at [facility] [address] [place] [address] Nilda Luis MD [facility] [place] [address] 02/14/2024 7:30 AM EST Appointment [place] [phone] Joanna Watts MD [facility] [place] [address] documented as of this encounter Visit Diagnoses Not on filedocumented in this encounter Care Teams Tray Drier Relationship Specialty Start Date End Date Trinh Coates MD [address] [place] [address] PCP - General 01/11/10 documented as of this encounter
--- OUTSIDE RECORDS SUMMARY | 2023-09-25 11:42 | XMS_ITS | Encounter Summary ---
Author Organization [facility] Address [facility] [place] [address] Care Team Providers Care Silvering Applicator Name Role Phone Trinh Coates MD Primary Care Provider [phone] Encounter Details Date Type Department Care Team [...] 01/22/2024 10:30 AM EST Appointment Mammography/[place] [address] Ladi Mendosa MD [facility] DR HEMATOLOGY [place] [address] 01/30/2024 11:30 AM EST Office Visit Dermatology at [facility] [address] [place] [address] Nilda Luis MD [facility] [place] [address] 02/14/2024 7:30 AM EST [place] [address] Joanna [place] MD [facility] [place] [address] documented as of this encounter Visit Diagnoses Not on filedocumented in this encounter Care Teams Silvering Applicator Relationship Specialty Start Date End Date Trinh Coates MD [facility] [address] [address] PCP - General 01/11/10 documented as of this encounter
--- OUTSIDE RECORDS SUMMARY | 2023-09-25 11:42 | XMS_ITS | Encounter Summary ---
Author Organization [facility] [address] Care Team Providers Care Taxation Inspector Name Role Phone Trinh Coates MD Primary Care Provider [phone] Reason for Visit * Reason Comments Specialty Pharmacy Review Encounter Details Date Type Department Care Team (Late st Contact Info) Description 09/26/2022 Specialty [place] [phone] Mike Cavazos, [facility] Social History Tobacco Use Types Packs/Day [...] Cavazos - 09/26/2022 11:59 PM EDT The [facility] has completed a benefits investigation for Wendy Sandoval to review their eligibility to fill at [facility]. Per patient's medication list they are prescribed STELARA 45 MG/0.5 ML and the medication is not able to be filled at the [facility]. At this time insurance mandates this medication must be filled through [facility]. documented in this encounter Plan of Treatment Upcoming Encounters Date Type Department Care Team (Late st Contact Info) Description 01/22/2024 10:30 AM EST Appointment Mammography/[place] [address] Ladi Mendosa MD [facility] [place]ATOLOGY [place] [address] 01/30/2024 11:30 AM EST Office Visit Dermatology at [place] [address] [place] [address] Nilda Luis MD [facility] [place] [address] 02/14/2024 7:30 AM EST [place] [address] Joanna [place] MD [facility] [address] documented as of this encounter Visit Diagnoses Not on filedocumented in this encounter Care Teams Taxation Inspector Relationship Specialty Start Date End Date Trinh Coates MD [facility] [address] [place] [address] PCP - General 01/11/10 documented as of this encounter
--- OUTSIDE RECORDS SUMMARY | 2023-09-25 11:42 | XMS_ITS | Encounter Summary ---
Author Organization [facility] Address [facility] [place] [address] Care Team Providers Care Visual Manager Name Role Phone Trinh Coates MD Primary Care Provider [phone] Encounter Details Date Type Department Care Team [...] 01/22/2024 10:30 AM EST Appointment Mammography/[place] [address] Ladi Mendosa MD [facility] DR HEMATOLOGY [place] [address] 01/30/2024 11:30 AM EST Office Visit Dermatology at [facility] [address] [place] [id number] Nilda Luis MD [facility] [place] [address] 02/14/2024 7:30 AM EST Appointment [place] [address] Joanna Watts MD [facility] [place] [address] documented as of this encounter Visit Diagnoses Not on filedocumented in this encounter Care Teams Visual Manager Relationship Specialty Start Date End Date Trinh Coates MD [facility] [place] [address] [address] PCP - General 01/11/10 documented as of this encounter
--- OUTSIDE RECORDS SUMMARY | 2023-09-25 11:42 | XMS_ITS | Encounter Summary ---
Author Organization [facility] [place] [address] Care Team Providers Care Parking Control Officer Name Role Phone Trinh Coates MD Primary Care Provider [phone] Reason for Visit * Auth/Cert (Routine) Specialty Diagnoses / Procedures Referred By Diamante t Referred To Contact Diagnoses Cerebral aneurysm, nonruptured AXEL pipeline Procedures PRO PERM OCCLUSION/EMBOLIZATION, PERCUT, END USER CONSULTANT @TRANSCATHETER OCCLUSION/EMBOLIZATION FOR TUMOR DESTRUCTION (WRVU 20.12) Joanna Watts MD [facility] [place] [address] [facility] Referral ID Status Reason Start Date Expiration Date Visits Re quested Visits Authorized [id number] 1 1 Encounter Details Date Type Department Care Team (Late st Contact Info) Description 07/24/2022 7:30 AM EDT - 07/24/2022 11:50 [place] [address] Joanna Watts MD [facility] [place] [address] @TRANSCATHETER OCCLUSION/EMBOLIZATION FOR TUMOR DESTRUCTION (WRVU 20.12) [...] Hospital Course: Patient was admitted electively to [facility] via the same day surgery program and [...] provider. Please call the Neurosurgery Office at [phone] if you do not receive a scheduled [...] have tobacco dependence clinics in these locations: [facility]: DEMETRIA Reardon [facility] Tobacco Treatment [place], [place] Other Programs at [facility] in [place] Living Free of Tobacco support group: For anyone who has quit tobacco or is considering quitting tobacco. [facility] Health Education Center, Level 4, [place] 3:30 to 4:30 p.m. on the sunday of every month. Other Programs in the Area [facility] in [place] One-on-one counseling, hypnosis. Arpita Bess [facility] in [place], [place] One-on-one counseling, QuitLine, classes. Alejandra Hall [facility]: One-on-one counseling. All ages and incomes eligible. Breann Sheffield [facility]: Classes & support group. Camden George [facility] in [place], [place] One-on-one counseling, QuitLine, classes, hypnosis therapy. Lorie Linares Information about Quitting Smoking and Tobacco See our Quitting Smoking - Information and Materials page (http://www.[facility].org/medical- information/smoking/information_on_quitting_smoking.html) for educational information about quitting smoking, downloadable smoking cessation materials, podcasts, websites, helplines, and more. FOLLOW UP PLAN: Future Appointments Date Time Provider Department Center 08/03/2022 10:15 AM Tahira Cardenas APRN [facility] [place] [facility] HOW TO REACH NEUROSURGERY Office Hours (Sunday through Sunday 8am-5pm): Call On weekends or after office hours (after 5pm or before 8am): Call [phone] and ask the pouring crane operator to page the Neurosurgery Resident/Advanced Practice Provider construction assistant. *Your surgeon may not be line ordering clinician (especially after office hours or on the weekend) so be ready totell about yourself and your surgery when you call. Neurosurgery Providers Adult Neurosurgery Dr. Curtis Mann Pediatric Neurosurgery Dr. Arpita Jarrett Advanced Practice Providers Nallely Barry, Nurse Practitioner (outpatient) Jackie Sarmiento, Physician Funeral Pre Arrangement Specialist (inpatient/outpatient: neuro-oncology) Halie Grande, Nurse Practitioner (inpatient) Christy Bentley, Physician Funeral Pre Arrangement Specialist (inpatient) Manuel Nunez, Nurse Practitioner (outpatient: pediatric) Araceli Levi, Nurse Practitioner (outpatient: vascular) Venessa Mckeon, Physician Funeral Pre Arrangement Specialist (outpatient: spine) Kana Melendrez, Nurse Practitioner (inpatient/outpatient) Mitch Aguilar, Physician Funeral Pre Arrangement Specialist (outpatient) Outpatient Nurses Rachna Guerrero General Instructions None Future Appointments and Orders Future Appointments and Orders Future Appointments Provider Department Dept Phone 08/03/2022 10:15 AM Tahira Cardenas APRN Radiation Oncology at [facility] Arrive at: [facility] door at end of hallway [phone] Future Orders Complete By Expires CT Angiogram [place] [facility] [place] [[id number] Custom] 10/25/2022 04/26/2023 Process Instructions: Scheduling Instructions: Questions: Clinical information / arteaga questions for radiologist: Where will study be performed?: [facility] Radiology Stat read required?: Does patient require sedation?: GA rationale: Date of injury if applicable: Notify physician (specify) [CSE571 Custom] As directed Process Instructions: Scheduling Instructions: Comments: *Nausea or vomiting *Temperature of Greater than 100.4 Degrees Farenheit *Redness, tenderness, odor, or discharge around the incision site *Severe Pain Questions: Scheduled Appointments: Future Appointments Date Time Provider Department Center 08/03/2022 10:15 AM Tahira Cardenas APRN [facility] Rad [facility] Primary Care Doctor: Trinh Coates MD [phone] Signed: STEVAN Pink 07/25/2022 documented in this [...] provider. Please call the Neurosurgery Office at [phone] if you do not receive a scheduled [...] have tobacco dependence clinics in these locations: [facility]: Alexys AR [facility] Tobacco Treatment [place], [place] Other Programs at [facility] in [place] Living Free of Tobacco support group: For anyone who has quit tobacco or is considering quitting tobacco. [facility] Health Education Center, Level 4, [facility] 3:30 to 4:30 p.m. on the second Sunday of every month. Other Programs in the Area [facility] in [place] One-on-one counseling, hypnosis. Arpita Bess [facility] in [place], [place] One-on-one counseling, QuitLine, classes. Alejandra Hall [facility]: One-on-one counseling. All ages and incomes eligible. Breann Sheffield [facility]: Classes & support group. Cam[facility] in [place], [place] One-on-one counseling, QuitLine, classes, hypnosis therapy. Lorie Linares Information about Quitting Smoking and Tobacco See our Quitting Smoking - Information and Materials page (http://www.[email or web address]/medical- information/smoking/information_on_quitting_smoking.html) for educational information about quitting smoking, downloadable smoking cessation materials, podcasts, websites, helplines, and more. FOLLOW UP PLAN: Future Appointments Date Time Provider Department Center 08/03/2022 10:15 AM Tahira Cardenas APRN [facility] [place] [facility] HOW TO REACH NEUROSURGERY Office Hours (Sunday through Sunday 8am-5pm): Call On weekends or after office hours (after 5pm or before 8am): Call [phone] and ask the pouring crane operator to page the Neurosurgery Resident/Advanced Practice Provider construction assistant. *Your surgeon may not be line ordering clinician (especially after office hours or on the weekend) so be ready totell about yourself and your surgery when you call. Neurosurgery Providers Adult Neurosurgery Dr. Curtis Mann Pediatric Neurosurgery Dr. Arpita Jarrett Advanced Practice Providers Nallely Barry, Nurse Practitioner (outpatient) Jackie Sarmiento, Physician Funeral Pre Arrangement Specialist (inpatient/outpatient: neuro-oncology) Halie Grande, Nurse Practitioner (inpatient) Christy Bentley, Physician Funeral Pre Arrangement Specialist (inpatient) Manuel Nunez, Nurse Practitioner (outpatient: pediatric) Araceli Levi, Nurse Practitioner (outpatient: vascular) Venessa Mckeon, Physician Funeral Pre Arrangement Specialist (outpatient: spine) Kana Melendrez, Nurse Practitioner (inpatient/outpatient) Mitch Aguilar, Physician Funeral Pre Arrangement Specialist (outpatient) Outpatient Nurses Rachna Guerrero documented in [...] AM EDT NEUROSURGERY PROGRESS NOTE PLEASE PAGE [phone] WITH QUESTIONS ID: Wendy Sandoval is a [...] s/p flow diverting stent placement via R GLAZIER ARTIST. HD# 1 POD # 1 Day Post-Op 07/24/22, Dr. 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 -D/c Treviño and ensure voiding -Mobilize -ADAT -D/c home with f/u as follows: --continue DAPT --f/u in 2wks with ASHTYN for check up --f/u in 3 months with AM with CTA --f/u in 6 months with AM for DSA -PT/OT/PRODUCTION DIRECTOR : } -DISPOSITION: home today -FULL CODE Please page [phone] with questions/concerns for in-house NSGY patients IMAGING: [...] who have questions please contact the health resident care provider that requested your imaging first. CATIONS: Scheduled [...] IR Arteriogram Cerebral 05/19/2022 Joanna Watts MD [facility] INTERVENTIONL RAD IR DRAIN CHECK/CHANGE/REMOVE 11/20/2017 IR Drain Check/Change/Remove 11/20/2017 Marcos Dey MD [facility] INTERVENTIONL RAD IR MEDIPORT REMOVAL 01/25/2018 IR Mediport Removal 01/25/2018 Scooby Muñoz, MANAGER PROCESS EXCELLENCE [facility] INTERVENTIONL RAD PRG EMG, LARYNX N/A 11/02/2015 FACIAL NERVE MONITORING, SETUP LARYNGEAL performed by Valentina Lucas MD at [facility] MAIN OR PRO BREAST RECONSTRUCTION IMMT/DLYD W/TISS DIRECTOR OF FOOD AND NUTRITION SERVICES SBSQ EXPANSION Bilateral 04/26/2017 BREAST RECONSTRUCTION, IMMEDIATE OR DELAYED, W/ TISSUE DIRECTOR OF FOOD AND NUTRITION SERVICES, INCLUDING SUBSEQUENT EXPANSION (WRVU 18.5) performed by Andre Gimenez MD at [facility] OR PRO BREAST RECONSTRUCTION W FREE FLAP Bilateral 04/26/2017 @BREAST RECONSTRUCTION W/ FREE FLAP, SUSAN (WRVU 42.58) performed by Andre Gimenez MD at [facility] LLOYD PRO BREAST RECONSTRUCTION W/LATSMS D/SI FLAP WO PRSTHC IMPL Bilateral 12/12/2017 @BREAST RECONSTRUCTION W/ LAT DORSI FLAP,W/O IMPLANT, SUSAN (WRVU 23.36) performed by Andre Gimenez MD at [facility] OR PRO DEBRIDEMENT SUBCUTANEOUS TISSUE 20 SQCM/< 06/22/2017 DEBRIDEMENT SKIN AND SUBCU, BREAST (WRVU 1.01) performed by Andre Gimenez MD at [facility] MAIN OR PRO EXPLORE PARATHYROID GLANDS N/A 11/02/2015 PARATHYROIDECTOMY OR EXPLORATION OF PARATHYROID(S) performed by Valentina Lucas MD at [facility] OR [facility] FULL THICK GRFT TRUNK <20 SQCM Bilateral 04/26/2017 FTSG, FREE, DIR CLOSE DONOR SITE, TRUNK, 20 SQ CM OR LESS (WRVU 9.15) performed by Andre Gimenez MD at [facility] OR PRO INCISION OF LYMPH CHANNELS Left 10/18/2018 INCISION & DRAINAGE LYMPHOCELE (WRVU 6.81) performed by Andre Gimenez MD at [facility] OR PRO IV INJ TO TEST BLOOD FLOW IN FLAP/GRAFT Left 10/18/2018 IV INJECTION, AGENT TO TEST VASC FLOW IN FLAP OR GRAFT, ENT (WRVU 1.95) performed by Andre Gimenez MD at [facility] MAIN OR PRO MASTECTOMY, SIMPLE, COMPLETE Bilateral 04/26/2017 MASTECTOMY, SIMPLE, COMPLETE-SUSAN (WRVU 15.85) performed by Jolie Menendez MD at [facility] MAIN OR PRO PARTIAL REMOVAL OF RIB Bilateral 04/26/2017 EXCISION OF RIB, PARTIAL (WRVU 7.26) performed by Andre Gimenez MD at [facility] MAIN OR PRO REMOVE ARMPITS LYMPH NODES COMPLT Left 04/26/2017 LYMPHADENECTOMY, AXILLARY, COMPLETE (WRVU 13.87) performed by Jolie Menendez MD at [facility] MAIN OR PRO REPLACE TISSUE DIRECTOR OF FOOD AND NUTRITION SERVICES Bilateral 12/12/2017 TISSUE DIRECTOR OF FOOD AND NUTRITION SERVICES REPLACEMENT, WITH PERMANENT PROSTHESIS, SUSAN (WRVU 8.01) performed by Andre Gimenez MD at [facility] MAIN OR PRO REVISION RECONSTRUCTED BREAST Left 06/22/2017 REVISION OF RECONSTRUCTED BREAST (WRVU 10.41) performed by Andre Gimenez MD at [facility] MAIN OR PRO REVISION RECONSTRUCTED BREAST Bilateral 12/12/2017 REVISION OFRECONSTRUCTED BREAST, SUSAN (WRVU 10.41) performed by Andre Gimenez MD at [facility] MAIN OR PRO THYMECTOMY, TRANSCERVICAL N/A 11/02/2015 THYMECTOMY, TRANSCERVICAL APPROACH performed by Valentina Lucas MD at [facility] MAIN OR SHOULDER SURGERY Left UMBILICAL [...] IR Arteriogram Cerebral 05/19/2022 Joanna Watts MD [facility] INTERVENTIONL RAD IR DRAIN CHECK/CHANGE/REMOVE 11/20/2017 IR Drain Check/Change/Remove 11/20/2017 Marcos Dey MD [facility] INTERVENTIONL RAD IR MEDIPORT REMOVAL 01/25/2018 IR Mediport Removal 01/25/2018 Scooby Muñoz R, MANAGER PROCESS EXCELLENCE [facility] INTERVENTIONL RAD PRG EMG, LARYNX N/A 11/02/2015 FACIAL NERVE MONITORING, SETUP LARYNGEAL performed by Valentina Lucas MD at [facility] MAIN OR PRO BREAST RECONSTRUCTION IMMT/DLYD W/TISS DIRECTOR OF FOOD AND NUTRITION SERVICES SBSQ EXPANSION Bilateral 04/26/2017 BREAST RECONSTRUCTION, IMMEDIATE OR DELAYED, W/ TISSUE DIRECTOR OF FOOD AND NUTRITION SERVICES, INCLUDING SUBSEQUENT EXPANSION (WRVU 18.5) performed by Andre Gimenez MD at [facility] OR PRO BREAST RECONSTRUCTION W FREE FLAP Bilateral 04/26/2017 @BREAST RECONSTRUCTION W/ FREE FLAP, SUSAN (WRVU 42.58) performed [facility] BREAST RECONSTRUCTION W/LATSMS D/SI FLAP WO PRSTHC IMPL Bilateral 12/12/2017 @BREAST RECONSTRUCTION W/ LAT DORSI FLAP,W/O IMPLANT, SUSAN (WRVU 23.36) performed by Andre Gimenez MD at [facility] OR [facility] DEBRIDEMENT SUBCUTANEOUS TISSUE 20 SQCM/< 06/22/2017 DEBRIDEMENT SKIN AND SUBCU, BREAST (WRVU 1.01) performed by Andre Gimenez MD at [facility] OR [facility] EXPLORE PARATHYROID GLANDS N/A 11/02/2015 PARATHYROIDECTOMY OR EXPLORATION OF PARATHYROID(S) performed by Valentina Lucas MD at [facility] OR [facility] FULL THICK GRFT TRUNK <20 SQCM Bilateral 04/26/2017 FTSG, FREE, DIR CLOSE DONOR SITE, TRUNK, 20 SQ CM OR LESS (WRVU 9.15) performed by Andre Gimenez MD at [facility] OR [facility] INCISION OF LYMPH CHANNELS Left 10/18/2018 INCISION & DRAINAGE LYMPHOCELE (WRVU 6.81) performed by Andre Gimenez MD at [facility] OR PRO IV INJ TO TEST BLOOD FLOW IN FLAP/GRAFT Left 10/18/2018 IV INJECTION, AGENT TO TEST VASC FLOW IN FLAP OR GRAFT, ENT (WRVU 1.95) performed by Andre Gimenez MD at [facility] MAIN OR PRO MASTECTOMY, SIMPLE, COMPLETE Bilateral 04/26/2017 MASTECTOMY, SIMPLE, COMPLETE-SUSAN (WRVU 15.85) performed by Jolie Menendez MD at [facility] MAIN OR PRO PARTIAL REMOVAL OF RIB Bilateral 04/26/2017 EXCISION OF RIB, PARTIAL (WRVU 7.26) performed by Andre Gimenez MD at [facility] MAIN OR PRO REMOVE ARMPITS LYMPH NODES COMPLT Left 04/26/2017 LYMPHADENECTOMY, AXILLARY, COMPLETE (WRVU 13.87) performed by Jolie Menendez MD at [facility] OR PRO REPLACE TISSUE DIRECTOR OF FOOD AND NUTRITION SERVICES Bilateral 12/12/2017 TISSUE DIRECTOR OF FOOD AND NUTRITION SERVICES REPLACEMENT, WITH PERMANENT PROSTHESIS, SUSAN (WRVU 8.01) performed by Andre Gimenez MD at [facility] OR PRO REVISION RECONSTRUCTED BREAST Left 06/22/2017 REVISION OF RECONSTRUCTED BREAST (WRVU 10.41) performed by Andre Gimenez MD at [facility] OR PRO REVISION RECONSTRUCTED BREAST Bilateral 12/12/2017 REVISION OFRECONSTRUCTED BREAST, SUSAN (WRVU 10.41) performed by Andre Gimenez MD at [facility] MAIN OR PRO THYMECTOMY, TRANSCERVICAL N/A 11/02/2015 THYMECTOMY, TRANSCERVICAL APPROACH performed by Valentina Lucas MD at [facility] OR SHOULDER SURGERY Left UMBILICAL HERNIA REPAIR [...] and her son. Her Daughter lives in [place] and is planning on staying with her for a short while after discharge. 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 Reason for Hospitalization: flow diverting stent placement via R GLAZIER ARTIST. Covid Vaccination Status: 1st, 2nd & booster [...] surrogate would be surrogate decision maker per [place] surrogate decision making law. (Only good for 180 days) Any patient receiving care in [place] must abide by [place] law. The hierarchy for surrogate decision making [...] (i) The agent with financial power of jig and fixture maker or a conservator appointed in accordance with [...] DME: none Home Address confirmed as: [address] [facility] [facility] [address] Social & Family Supports: All names listed below confirmed with patient as current and correct Extended Emergency Contact Information Primary Emergency Contact: Phillip aSndoval Address: [address] [place] [id number] [facility] Mobile Relation: Spouse Current Care Provided by: [...] N/A ; Prescription Coverage: Yes Preferred Pharmacy: [facility] - [place], [place] - [address] [facility] [address] [facility] [address] [facility] [place] - STEVAN Dom[facility]uez - [address] [facility] [address] [facility] [address] [address] [facility] - [place], [place] - [address] [facility] [address] [facility] [address] - [place], [place] - [address] [facility] [address] [facility] [id number] [place] Status: Patient is a : No Primary Care Provider confirmed: Trinh Coates MD [phone] Patient/Caregiver Goals of Treatment: return home when medically ready for discharge. Potential Needs for Transition of Care: none Agency Referrals: Not Applicable Transportation: no concerns Transportation Anticipated: family or friend will provide Concerns to be Addressed: denies needs/concerns at this time Assessment: Patient is admitted to neurosurgery service for flow diverting stent placement via R GLAZIER ARTIST. Plan: patient will have treviño removed, will need to work with PT/OT/PRODUCTION DIRECTOR, team is hoping to discharge today. A member of the Care Management team will continue to monitor progress, follow for continuity of care and assist with transition of care planning. Rachna VIGIL RN Phone: [phone] Pager: [phone] documented in this encounter Plan of Treatment Upcoming Encounters Date Type Department Care Team (Late st Contact Info) Description 01/22/2024 10:30 AM EST Appointment Mammography/DXA at [place] [phone] Ladi Mendosa MD [facility] H[place]AT[place] [address] 01/30/2024 11:30 AM EST Office Visit Dermatology at [address] [phone] Nilda Luis MD [facility] [place] [address] 02/14/2024 7:30 AM EST [place] [address] Joanna Watts MD [facility] [place] [address] [phone] (work) documented as of this encounter Procedures Procedure [...] 11:58 AM EDT Perm Occlusion/Embolizati on, Percut, Atomic Fuel Assembler ([id number]) 07/24/2022 7:37 AM EDT AXEL pipeline documented in this encounter Results * CT Angiogram [place] (11/08/2022 12:15 PM EDT) Anatomical [...] who have questions please contact the health resident care provider that requested your imaging first. ? 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 No evidence for recurrence. Apparent filling defect within the right ICA at the horizontal/cavernous junction which may reflect dissection. Anterior communicating artery complex is normal. Vertebrobasilar system is normal. No central branch occlusion in the [place] of [place]. origin left BIT SHARPENER. 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 No evidence for recurrence. Apparent filling defect within theright ICA at the horizontal/cavernous junction which may reflect dissection.Anterior communicating artery complex is normal. Vertebrobasilar system is normal.No central branch occlusion in the pok[place] of [place]. origin left BIT SHARPENER. 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 Thank you for letting us participate in the care of this patient. If youare a health care provider and have any questions regarding this report,please contact the number below. For patients who have questions please contactthe health resident care provider that requested your imaging first. Electronically signed by: LORENA Francis [facility]([phone]), at 11/08/2022 2:44 PM Joanna Watts MD IMG CT ORDERABLES * (ABNORMAL) Differential, Automated (07/25/2022 2:21 AM EDT) Neutrophil % 84.0 % [facility] Neutrophil Absolute 11.68(H) 1.70 - 6.10 x10(3)/mc L [facility] Lymph % 7.7 % [facility] Lymphocytes Abs 1.1 0.9 - 3.2 x10(3)/mc L [facility] Monocyte % 7.3 % [facility] Monocyte Abs 1.0(H) 0.3 - 0.9 x10(3)/mc L [facility] Eos % 0.0 % [facility] Eosinophils Abs 0.0 0.0 - 0.4 x10(3)/ L [facility] Basophil % 0.3 % [facility] Baso Absolute 0.0 0.0 - 0.1 x10(3)/mc L [facility] Immature Gran % 0.70 % [facility] Comment: Immature granulocytes(IG's)percentage and absolute count will include metamyelocytes, myelocytes, and promyelocytes. Blood smears from CBCs yielding IG's will be scanned manually for concordance. If this scan disagrees with the automated IG or if promyelocytes are noted, a manual differential will be performed. Immature Gran Absolute 0.10(H) 0.00 - 0.04 x10(3)/ L [facility] Blood 07/25/2022 2:21 AM EDT 07/25/2022 2:26 AM EDT Narrative Resulting Agency Comment Spec In Lab Senia CALLES HEMATOLOGY ORDERABLE S [facility] [place] [address] * (ABNORMAL) Hemogram (07/25/2022 2:21 AM EDT) White Blood Cell 13.9(H) 4.0 - 9.5 x10(3)/mc L [facility] Red Blood Cell 3.37(L) 4.00 - 5.21 x10(6)/mc L [facility] Hemoglobin 10.5(L) 11.7 - 15.5 g/dL [facility] Hematocrit 32.0(L) 35.7 - 45.8 % [facility] Mean Cell Volume 95.0(H) 82.6 - 94.4 fL [facility] Mean Cell Hemoglobin 31.2 27.1 - 32.0 pg [facility] Mean Cell Hemoglobin Concentration 32.8 31.7 - 35.0 g/dL [facility] Platelet 266 145 - 357 x10(3)/mc L [facility] RDW Standard Deviation 48.1(H) 37.0 - 46.0 fL [facility] RDW coefficient of variation 13.8 11.5 - 14.1 % [facility] Mean Platelet Volume 9.0 7.6 - 12.9 fL [facility] NRBC% auto 0.0 % [facility] NRBC Absolute 0.000 0.000 - 0.000 x10(3)/mc L [facility] Blood 07/25/2022 2:21 AM EDT 07/25/2022 2:26 AM EDT Narrative Resulting Agency Comment Spec In Lab Senia CALLES HEMATOLOGY ORDERABLE S [facility] [place] [address] * Phosphorus (07/25/2022 2:21 AM EDT) Phosphorus 2.7 2.5 - 4.5 mg/dL [facility] Blood 07/25/2022 2:21 AM EDT 07/25/2022 2:26 AM EDT Narrative Resulting Agency Comment Spec In Lab Joanna Watts MD CHEMISTRY ORDERABLE S [facility] [place] [address] * Magnesium (07/25/2022 2:21 AM EDT) Magnesium 0.74 0.69 - 1.07 mmol/L [facility] Blood 07/25/2022 2:21 AM EDT 07/25/2022 2:26 AM EDT Narrative Resulting Agency Comment Spec In Lab Joanna Watts MD CHEMISTRY ORDERABLE S [facility] [place] [address] * (ABNORMAL) Basic Metabolic Panel (non-fasting) (07/25/2022 2:21 AM EDT) Glucose 189 65 - 199 mg/dL [facility] Comment:Diabetes: >=200 mg/d L plus symptoms Blood Urea Nitrogen 33(H) 8 - 18 mg/dL [facility] Creatinine 1.46(H) 0.70 - 1.20 mg/dL [facility] Sodium 141 135 - 145 mmol/L [facility] Potassium 4.2 3.5 - 5.0 mmol/L [facility] Comment: Please note: ??Patients with WBC >100,000 may have falsely elevated Potassium levels. ??For accurate Potassium quantification in these patients send serum separator tube (gold top) for subsequent determinations. ??Contact the Clinical Chemistry Laboratory if there are any questions. Chloride 112(H) 98 - 107 mmol/L [facility] Carbon Dioxide 18(L) 22 - 31 mmol/L [facility] Anion Gap 11 5 - 15 mmol/L [facility] Calcium 7.7(L) 8.5 - 10.5 mg/dL [facility] Est Glomerular Filtration Rate 41(L) >=60 mL/min/1. 73 m?? [facility] Comment: This patient's estimated GFR was [...] Lab Joanna Watts MD CHEMISTRY ORDERABLE S [facility] [place] [address] * CT Head wo Contrast (Generic) (07/24/2022 [...] who have questions please contact the health resident care provider that requested your imaging first. ? Narrative [...] patients who have questions please contactthe health resident care provider that requested your imaging first. Joanna Watts MD IMG CT ORDERABLES * POCT Glucose (07/24/2022 11:58 AM EDT) Glucose, POC 113 65 - 199 mg/dL [facility] Comment: Supplemental ranges: <140 mg/dL before meals <180 mg/dL all other times of the day Blood 07/24/2022 11:5 8 AM EDT 07/24/2022 11:58 AM EDT Joanna Watts MD POINT OF CARE TEST ORDERABLES [facility] [place] [address] documented in this encounter Visit Diagnoses Not on filedocumented in this encounter Admitting Diagnoses Diagnosis Brain aneurysm Cerebral aneurysm, nonruptured documented in this encounter Administered Medications Inactive Administered Medications - up to 3 most recent administrations Medication Order MAR Action Action Date Dose Rate Site acetaminophen (Tylenol) tablet 975 mg 975 mg, Oral, EVERY 6 HOURS PRN, Starting on 07/24/22 at 2020, Until Sun07/25/22 at 1840, Pain, [...] suppositories? Yes 1255 (Given - Provider: Usman Barrera, JENNYFER) aspirin chewable tablet 81 mg 81 mg, [...] Routine 928 (Given - Provid er: Enoch [place], JENNYFER) gabapentin (Neurontin) capsule 300 mg (CANCELED) 300 [...] Barrera RN)1610 (Rate/Dose Change - Provider: Usman Barrera, JENNYFER)1700 (Rate/Dose Change - Provider: Usman Barrera, RN)1935 (Rate/Dose Verify - Provider: Morena Shanks, RN)2200 (Rate/Dose Verify - Provider: Morena Shanks [...] Routine documented in this encounter Care Teams Parking Control Officer Relationship Specialty Start Date End Date Trinh Coates MD [facility] [address] [place] [address] PCP - General 01/11/10 documented as of this encounter
--- OUTSIDE RECORDS SUMMARY | 2023-09-25 11:42 | XMS_ITS | Encounter Summary ---
Author Organization [facility] [place] [address] Care Team Providers Care Staff Anesthesiologist Name Role Phone Trinh Coates MD Primary Care Provider [phone] Reason for Visit * Reason Onset Date Comments Appointment 08/08/2022 Encounter Details Date Type Department Care Team (Late st Contact Info) Description 08/08/2022 [place] [address] Rachna Guerrero, RN Appointment Social [...] this Sunday, 08/11 at 1:00 Sent a Clip Interactive message to pt with appt details as [...] on/around 10/24/22 ~~~~~~~~~~~~~~~~~~~~~~~~~~~~~~~~~~~~~~~~~~~~~~~ Rachna Guerrero RN P [facility] Neurosurgery [place] Just looking through patients chart and they [...] 01/22/2024 10:30 AM EST Appointment Mammography[place] [phone] Ladi Mendosa MD [facility] DR HEMATOLOGY [place] [address] 01/30/2024 11:30 AM EST Office Visit Dermatology at [facility] [address] [place] [phone] Nilda Luis MD [facility] [place] [address] 02/14/2024 7:30 AM EST [place] [address] Joanna Watts MD [facility] [place] [address] documented as of this encounter Visit Diagnoses Not on filedocumented in this encounter Care Teams Staff Anesthesiologist Relationship Specialty Start Date End Date Trinh Coates MD [facility] [address] [address] PCP - General 01/11/10 documented as of this encounter
--- OUTSIDE RECORDS SUMMARY | 2023-09-25 11:42 | XMS_ITS | Encounter Summary ---
Author Organization [facility] [place] [address] Care Team Providers Care Marketing Production Specialist Name Role Phone Trinh Coates MD Primary Care Provider [phone] Reason for Visit * Auth/Cert (Routine) Specialty Diagnoses / Procedures Referred By Diamante marin Referred To Contact Diagnoses Cerebral aneurysm, nonruptured AXEL pipeline Procedures PRO PERM OCCLUSION/EMBOLIZATION, PERCUT, GAMING CAGE WORKER @TRANSCATHETER OCCLUSION/EMBOLIZATION FOR TUMOR DESTRUCTION (WRVU 20.12) Joanna Watts MD [facility] [address] [facility] Referral ID Status Reason Start Date Expiration Date Visits Re quested Visits Authorized [id number] 1 1 Encounter Details Date Type Department Care Team (Late st Contact Info) Description 07/24/2022 7:37 AM EDT [place]est[place] [address] Bill [place] MD [facility] [place] [address] Richelle Aguillon APRN [place] [address] Anesthesia Record Procedure Summary Procedure Name Responsible [...] 01/31/23; 1424 12/12/17 1805 by Constanza Corona, RN 01/31/23 142 by Susana Posadas RN [...] by: Marquis; Removal Date: 07/24/22; Removal Time: 1133 07/24/22 0802 by Juan Cho CRNA 07/24/22 1133 by Juan Cho CRNA (RETIRED) Peripheral IV Line - Single Lumen 07/24/22; 0821; dorsal arch vein (top of hand), right; [id number]-cel-[id number] catheter system; Anatomical Landmarks; 18 gauge; weed; [...] Procedure Summary Date: 07/24/22 Room / Location: [facility]Y / [facility] Anesthesia Start: 07 Anesthesia Stop: 1154 Procedure: @TRANSCATHETER OCCLUSION/EMBOLIZATION FOR TUMOR DESTRUCTION (WRVU 20.12) Diagnosis: (AXEL pipeline) Surgeons: Joanna Watts MD Responsible Provider: Bill [place] MD Anesthesia Type: general ASA Status: 3 All Anesthesia Providers: Anesthesiologist: Bill [place] MD MACADAM RAKER: Juan Cho CRNA Vitals Value Taken Time [...] of left breast in female, estrogen receptor wultirul37/10/2018 ??? Hyperparathyroidism 11/02/2015 ??? Obstructive sleep apnea [...] of left breast in female, estrogen receptor xubmdfol51/10/2018 ??? Obstructive sleep apnea on CPAP ??? Proteinuria Past Surgical History: Procedure Laterality Date ??? BREAST BIOPSY Right 11/01 ??? SECTION x 2 ??? HAND SURGERY Right ??? IR ARTERIOGRAM CEREBRAL 05/19/2022 IR Arteriogram Cerebral 05/19/2022 Joanna Watts MD [facility] INTER[facility] RAD ??? IR DRAIN CHECK/CHANGE/REMOVE 11/20/2017 IR Drain Check/Change/Remove 11/20/2017 Marcos Dey MD [facility] INTERVENT[facility] RAD ??? IR MEDIPORT REMOVAL 01/25/2018 IR Mediport Removal 01/25/2018 Scooby Muñoz, TOE PULLER [facility] INTERVENTION[facility] RAD ??? PRG EMG, LARYNX N/A 11/02/2015 FACIAL NERVE MONITORING, SETUP LARYNGEAL performed by Valentina Lucas MD at [facility] MAIN OR ??? PRO BREAST RECONSTRUCTION IMMT/DLYD W/TISS DIRECTOR LEARNING AND DEVELOPMENT SBSQ EXPANSION Bilateral 04/26/2017 BREAST RECONSTRUCTION, IMMEDIATE OR DELAYED, W/ TISSUE DIRECTOR LEARNING AND DEVELOPMENT, INCLUDING SUBSEQUENT EXPANSION (WRVU 18.5) performed by Andre Gimenez MD at [facility] MAIN OR ??? PRO BREAST RECONSTRUCTION W FREE FLAP Bilateral 04/26/2017 @BREAST RECONSTRUCTION W/ FREE FLAP, SUSAN (WRVU 42.58) performed by Andre Gimenez MD at [facility] LLOYD ??? PRO BREAST RECONSTRUCTION W/LATSMS D/SI FLAP WO PRSTHC IMPL Bilateral 12/12/2017 @BREAST RECONSTRUCTION W/ LAT DORSI FLAP,W/O IMPLANT, SUSAN (WRVU 23.36) performed by Andre Gimenez MD at [facility] OR ? ? PRO DEBRIDEMENT SUBCUTANEOUS TISSUE 20 SQCM/< 06/22/2017 DEBRIDEMENT SKIN AND SUBCU, BREAST (WRVU 1.01) performed by Andre Gimenez MD at [facility] OR ??? PRO EXPLORE PARATHYROID GLANDS N/A 11/02/2015 PARATHYROIDECTOMY OR EXPLORATION OF PARATHYROID(S) performed by Valentina Lucas MD at [facility] OR ? ? PRO FULL THICK GRFT TRUNK <20 SQCM Bilateral 04/26/2017 FTSG, FREE, DIR CLOSE DONOR SITE, TRUNK, 20 SQ CM OR LESS (WRVU 9.15) performed by Andre Gimenez MD at [facility] OR ??? PRO INCISION OF LYMPH CHANNELS Left 10/18/2018 INCISION & DRAINAGE LYMPHOCELE (WRVU 6.81) performed by Andre Gimenez MD at [facility] OR ??? PRO IV INJ TO TEST BLOOD FLOW IN FLAP/GRAFT Left 10/18/2018 IV INJECTION, AGENT TO TEST VASC FLOW IN FLAP OR GRAFT, ENT (WRVU 1.95) performed by Andre Gimenez MD at [facility] OR ??? PRO MASTECTOMY, SIMPLE, COMPLETE Bilateral 04/26/2017 MASTECTOMY, SIMPLE, COMPLETE-SUSAN (WRVU 15.85) performed by Jolie Menendez MD at [facility] OR ??? PRO PARTIAL REMOVAL OF RIB Bilateral 04/26/2017 EXCISION OF RIB, PARTIAL (WRVU 7.26) performed by Andre Gimenez MD at [facility] OR ??? PRO REMOVE ARMPITS LYMPH NODES COMPLT Left 04/26/2017 LYMPHADENECTOMY, AXILLARY, COMPLETE (WRVU 13.87) performed by Jolie Menendez MD at [facility] OR ??? PRO REPLACE TISSUE DIRECTOR LEARNING AND DEVELOPMENT Bilateral 12/12/2017 TISSUE DIRECTOR LEARNING AND DEVELOPMENT REPLACEMENT, WITH PERMANENT PROSTHESIS, SUSAN (WRVU 8.01) performed by Andre Gimenez MD at [facility] OR ??? PRO REVISION RECONSTRUCTED BREAST Left 06/22/2017 REVISION OF RECONSTRUCTED BREAST (WRVU 10.41) performed by Andre Gimenez MD at [facility] MAIN OR ??? PRO REVISION RECONSTRUCTED BREAST Bilateral 12/12/2017 REVISION OFRECONSTRUCTED BREAST, SUSAN (WRVU 10.41) performed by Andre Gimenez MD at [facility] MAIN OR ??? PRO THYMECTOMY, TRANSCERVICAL N/A 11/02/2015 THYMECTOMY, TRANSCERVICAL APPROACH performed by Valentina Lucas MD at [facility] MAIN OR ??? SHOULDER SURGERY Left [...] consented to blood products. Plan discussed with MACADAM RAKER and attending. Anesthesia Screening Note: Date and [...] aneurysm with Dr. Watts 07/24/22. Seen in [facility] given known CKD III (GFR 37) [...] 07/24/2022 1:06 PM EDT Addendum created 07/24/22 6606 by Juan Cho CRNA Intraprocedure Event edited, Intraprocedure Meds edited documented in this encounter Plan of Treatment Upcoming Encounters Date Type Department Care Team (Late st Contact Info) Description 01/22/2024 10:30 AM EST Appointment Mammography/[place] [address] Ladi Mendosa MD [facility] DR HEMATOLOGY [place] [address] 01/30/2024 11:30 AM EST Office Visit Dermatology at [facility] [address] [place] [address] Nilda Luis MD [facility] [place] [address] 02/14/2024 7:30 AM EST Appointment [place] [phone] Joanna Watts MD [facility] [place] [address] documented as of this encounter Visit Diagnoses [...] mg documented in this encounter Care Teams Marketing Production Specialist Relationship Specialty Start Date End Date Trinh Coates MD [address] [place] [address] PCP - General 01/11/10 documented as of this encounter
--- OUTSIDE RECORDS SUMMARY | 2023-09-25 11:42 | XMS_ITS | Encounter Summary ---
Author Organization [facility] [place] [address] Care Team Providers Care Hr Analyst Name Role Phone Trinh Coates MD Primary Care Provider Encounter Details Date Type Department Care Team (Late st Contact Info) Description 11/07/2022 Telephone Dermatology at [facility] [address] [place] [address] Nilda Luis MD [facility] [place] [address] Social History Tobacco Use Types Packs/Day Years [...] [place] - 11/07/2022 3:02 PM EDT Wendy Sandoval left a voicemail on 11/07 in regards to her appointment on 12/12. She stated that she is hesitant to begin the efudex cream. She mentioned possibly doing it after she returns from a trip in December. documented in this encounter Plan of Treatment Upcoming Encounters Date Type Department Care Team (Late st Contact Info) Description 01/22/2024 10:30 AM EST Appointment Mammography/[place] [address] Ladi Mendosa MD [facility] [place] [address] 01/30/2024 11:30 AM EST Office Visit Dermatology at [place] [address] [place] [address] Nilda Luis MD [facility] [place] [address] 02/14/2024 7:30 AM EST Appointment [place] [address] Joanna Watts MD [facility] [place] [address] documented as of this encounter Visit Diagnoses Not on filedocumented in this encounter Care Teams Hr Analyst Relationship Specialty Start Date End Date Trinh Coates MD [facility] [address] [place] [address] PCP - General 01/11/10 documented as of this encounter
--- OUTSIDE RECORDS SUMMARY | 2023-09-25 11:42 | XMS_ITS | Encounter Summary ---
Author Organization [facility] [place] [address] Care Team Providers Care Cracking Still Operator Name Role Phone Trinh Coates MD Primary Care Provider [phone] Encounter Details Date Type Department Care Team (Late st Contact Info) Description 07/20/2022 2:00 PM EDT Clinical [place] [phone] Social History Tobacco Use Types Packs/Day Years [...] for pre-op testing. Pt refused referral to emergency vehicle driver documented in this encounter Plan of Treatment Upcoming Encounters Date Type Department Care Team (Late st Contact Info) Description 01/22/2024 10:30 AM EST Appointment Mammography/[place] [phone] Ladi Mendosa MD [facility] DR HEMATOLOGY [place] [address] 01/30/2024 11:30 AM EST Office Visit Dermatology at [address] [phone] Nilda Luis MD [facility] [place] [address] 02/14/2024 7:30 AM EST [place] [address] Joanna Watts MD [facility] [place] [place] [address] documented as of this encounter Visit Diagnoses Not on filedocumented in this encounter Care Teams Cracking Still Operator Relationship Specialty Start Date End Date Trinh Coates MD [address] [place] [address] PCP - General 01/11/10 documented as of this encounter
--- OUTSIDE RECORDS SUMMARY | 2023-09-25 11:43 | XMS_ITS | Encounter Summary ---
Author Organization [facility] [place] [address] Care Team Providers Care Product Manager E Commerce Name Role Phone Trinh Coates MD Primary Care Provider [phone] Reason for Referral * Diagnostic Test (Routine) - Closed Specialty Diagnoses / Procedures Referred By Diamante marin Referred To Contact Radiology Diagnoses Right internal carotid artery aneurysm Procedures IR Embolization Cerebral Joanna Watts MD [facility] [place] [address] [place] [address] Referral ID Status Reason Start Date Expiration Date V isits Requested Visits Authorized [id number] Closed Specialty Service Requested 05/19/2022 11/19/2023 1 1 Encounter Details Date Type Department Care Team (Late st Contact Info) Description 05/19/2022 Orders [place] [address] Joanna Watts MD [facility] [place] [address] Right internal carotid artery aneurysm [...] EST Appointment Mammography/[place] [phone] Ladi Mendosa MD [facility] [place] [address] 01/30/2024 11:30 AM EST Office Visit Dermatology at [facility] [address] [place] [phone] Nilda Luis MD [facility] [place] [address] 02/14/2024 7:30 AM EST [place] [phone] Joanna Watts MD [facility] [place] [address] documented as of this encounter Results * [...] who have questions please contact the health care transport nurse that requested your imaging first. ? Narrative 07/24/2022 1:42 PM EDT PROCEDURE NAME: [...] Bentson Guidewire. 3. ??0.035 flexible Glidewire with Popdustumo torque device. 4. ??6-Gambian, 90-cm NeuronMax 5. ??5-Gambian Envoy guide catheter. 6. ??5-Gambian, 125-cm Mann II angiographic catheter. 7. ??5-Gambian NARESH catheter. 8. ??5-Gambian 0.055 ??x 125 cm Mary Distal Access Catheter 9. ??Phenom 27 microcatheter. 10. ??0.014 Synchro 2 hydrophilic guidewire. 11. ??Pipeline Shield 5.0 x 25mm 12. ??6-Gambian Angio-Seal Device ?? PROCEDURE COMMENTS: After explaining [...] exchanged for an introducer followed by a 6-Gambian ??90 cm vascular sheath utilizing a virocyt wire. The sheath was then double flushed and hooked to heparinized saline via pressure bag. Subsequently a Impactia 2 angiographic catheter was initially used to attempt selection of the right common carotid artery which was unsuccessful. This was switched out for a 5-Gambian ??VERT catheter which was used to selectively catheterize the right common carotid artery. The sheath was advanced up to the level of the first carotid loop, and the angiographic catheter and Glidewire were removed. A 5 Gambian Mary was introduced into the sheath and snaked up to the level of the petrous right internal carotid artery. A Glidewire was introduced into the 5 Gambian Reanna up to the level of the [...] and microwire were withdrawn from the 5 Gambian Reanna. The access sheath was withdrawn to the level of the distal common carotid artery, leaving the [address] to maintain access across [...] in the usual sterile fashion. ??A 6 Gambian Angio-Seal closure device was subsequently prepared and [...] Bentson Guidewire. 3. 0.035 flexible Glidewire with [employer] torque device. 4. 6-Gambian, 90-cm NeuronMax 5. 5-Gambian Envoy guide catheter. 6. 5-Gambian, 125-cm Mann II angiographic catheter. 7. 5-Gambian NARESH catheter. 8. 5-Gambian 0.055 x 125 cm Mary Distal Access Catheter 9. Phenom 27 microcatheter. 10. 0.014 Synchro 2 hydrophilic guidewire. 11. Pipeline Shield 5.0 x 25mm 12. 6-Gambian Angio-Seal Device PROCEDURE COMMENTS: After explaining the [...] angiography table. General anesthesia was induced by [facility] anesthesiology service. Both groins were [...] exchanged for an introducer followed by a 6-Gambian 90 cm vascularsheath utilizing a virocyt wire. The sheath was then double flushed and hookedto heparinized saline via pressure bag. Subsequently a Impactia 2angiographic catheter was initially used to attempt selection of the right commoncarotid artery which was unsuccessful. This was switched out for a 5-FrenchVERT catheter which was used to selectively catheterize the right commoncarotid artery. The sheath was advanced up to the level of the first carotid loop,and the angiographic catheter and Glidewire were removed. A 5 Gambian Sofiawas introduced into the sheath and snaked [...] microcatheter and microwire were withdrawnfrom the 5 Gambian Reanna. The access sheath was withdrawn to the level of thedistal common carotid artery, leaving the [address] to maintainaccess across the [...] draped in the usual sterile fashion. A6 Gambian Angio-Seal closure device was subsequently prepared and [...] patients who have questions please contactthe health care transport nurse that requested your imaging first. 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
--- OUTSIDE RECORDS SUMMARY | 2023-09-25 11:43 | XMS_ITS | Encounter Summary ---
Author Organization [facility] [place] [address] Care Team Providers Care Respiratory Therapy Director Name Role Phone Trinh Coates MD Primary Care Provider [phone] Reason for Referral * Diagnostic Test (Routine) - Closed Specialty Diagnoses / Procedures Referred By Diamante marin Referred To Contact Radiology Diagnoses Right internal carotid artery aneurysm Procedures IR Arteriogram Cerebral IR Arteriogram Cerebral Araceli Levi APRN [facility] [place] [address] [facility] [place] [address] Referral ID Status Reason Start Date Expiration Date V isits Requested Visits Authorized [id number] Closed Specialty Service Requested 04/07/2022 10/06/2023 1 1 Reason for Visit * Consultation (Routine) - Closed Specialty Diagnoses / Procedures Referred By Diamante marin Referred To Contact Neurosurgery Diagnoses Family history of brain aneurysm Abnormal finding on MRI of brain Trinh Coates MD [facility] [place] [address] [address] [facility] Neurosurgery [address] [place] [phone] Referral ID Status Reason Start Date Expiration Date V isits Requested Visits Authorized [id number] Closed Consult, Test & Treat PCP Updated and/or Approved 03/30/2022 03/30/2023 6 6 Encounter Details Date Type Department Care Team (Late st Contact Info) Description 04/07/2022 11:20 AM EST Office Visit Neurosurgery at [place] [address] Araceli Levi, POULTRY PROCESSOR [facility] [place] [address] Right internal carotid artery aneurysm Social History [...] this encounter Progress Notes * Araceli Levi, POULTRY PROCESSOR - 04/07/2022 11:20 AM EST Ms. Sandoval is a 56 y.o. female who was found to have cerebral aneurysm on workup for family history of aneurysm. Accompanied by her spouse, Phillip. Family history of cerebral aneurysm. Father from anuerysmal SAH. Mother from aneurysmal SAH from giant aneurysm, here at [facility] 12/2021. Grandparents also had cerebral aneurysm hemorrhage. [...] IR Mediport Removal 01/25/2018 Scooby Muñoz APRN [facility] INTERVENTIONL RAD ??? PRG EMG, LARYNX N/A 11/02/2015 FACIAL NERVE MONITORING, SETUP LARYNGEAL performed by Valentina Lucas MD at [facility] OR ??? PRO BREAST RECONSTRUCTION IMMT/DLYD W/TISS LAPEL STITCHER SBSQ EXPANSION Bilateral 04/26/2017 BREAST RECONSTRUCTION, IMMEDIATE OR DELAYED, W/ TISSUE LAPEL STITCHER, INCLUDING SUBSEQUENT EXPANSION (WRVU 18.5) performed by Andre Gimenez MD at [facility] OR ??? PRO BREAST RECONSTRUCTION W FREE FLAP Bilateral 04/26/2017 @BREAST RECONSTRUCTION W/ FREE FLAP, SUSAN (WRVU 42.58) [facility] ??? PRO BREAST RECONSTRUCTION W/LATSMS D/SI FLAP WO PRSTHC IMPL Bilateral 12/12/2017 @BREAST RECONSTRUCTION W/ LAT DORSI FLAP,W/O IMPLANT, SUSAN (WRVU 23.36) performed by Andre Gimenez MD at [facility] OR ? ? PRO DEBRIDEMENT [...] GENERAL HOSPITAL OR ??? PRO REPLACE TISSUE LAPEL STITCHER Bilateral 12/12/2017 TISSUE LAPEL STITCHER REPLACEMENT, WITH PERMANENT PROSTHESIS, SUSAN (WRVU 8.01) [...] APPROACH performed by Valentina Lucas MD at [facility] OR ??? SHOULDER SURGERY Left [...] 1.20 mg/dL Final Imaging: MRA head in [facility]. Assessment: 56 y.o. female with the [...] EST Appointment Mammography/[place] [address] Ladi Mendosa MD [facility] HEMATOLOGY [place] [address] 01/30/2024 11:30 AM EST Office Visit Dermatology at [facility] [address] [place] [address] Nilda Luis MD [facility] [place] [address] 02/14/2024 7:30 AM EST Appointment [place] [address] Joanna Watts MD [facility] [place] [address] documented as of this encounter Results * [...] who have questions please contact the health home care associate that requested your imaging first. ? Narrative 06/06/2022 3:20 PM EDT PROCEDURE NAME: [...] being administered. The above times reflect physician/patient ppri-ol-fczn time. MEDICATIONS: 1% Lidocaine 10 ml SC [...] EQUIPMENT: ?? 1. ??Micropuncture access kit. 2. ??5-Maltese, 10 cm radial Glidesheath 3. ??5-Maltese Mann II Glidecatheter 4. ??1.5 J Glidewire [...] without difficulty under ultrasound guidance and the 5-Maltese, 10 cm radial Glidesheath was placed and [...] wasbeing administered. The above times reflect physician/patient vwnm-rt-xfmrytyl. MEDICATIONS: 1% Lidocaine 10 ml SC Fentanyl [...] None. EQUIPMENT: 1. Micropuncture access kit. 2. 5-Maltese, 10 cm radial Glidesheath 3. 5-Maltese Mann II Glidecatheter 4. 1.5 J Glidewire [...] without difficulty under ultrasound guidance and the 5-Maltese, 10 cmradial Glidesheath was placed and flushed. [...] patients who have questions please contactthe health home care associate that requested your imaging first. Araceli Levi APRN IMG IR ORDERABLES * Platelet count (05/19/2022 6:45 AM EDT) Platelet 337 145 - 357 x10(3)/mc L [facility] Immature Plt % 1.0 0.0 - 7.4 % [facility] Comment: Limitation of the Immature Platelet Fraction (IPF)-May be less reliable when the platelet count is less than 61s895/uL due to statistical imprecision. The IPF value [...] in a decreased state of production. References: [employer] The Clinical Value of the Immature Platelet Fraction (IPF) in Cell Recovery Document Number 10-1143 07/2010 [employer] The Role of the Immature Platelet Fraction (IPF) in the Differential Diagnosis of Thrombocytopenia, Document [id number] V006/30/13 P007/02 Blood 05/19/2022 6:45 AM EDT 05/19/2022 6:56 AM EDT Narrative Resulting Agency Comment Spec In Lab Araceli L Gurmeet [facility] ORDERABLE S Performing Organization Address City/State/[facility] Co de Phone Number [facility] [place] [address] * (ABNORMAL) Creatinine (05/19/2022 6:45 AM EDT) Creatinine 1.65(H) 0.70 - 1.20 mg/dL [facility] Est Glomerular Filtration Rate 36(L) >=60 mL/min/1. 73 m?? [facility] Comment: This patient's estimated GFR [...] In Lab Araceli Levi APRN [place] [address] documented in this encounter Visit Diagnoses Diagnosis Right internal carotid artery aneurysm Cerebral aneurysm, nonruptured Right internal carotid artery aneurysm Cerebral aneurysm, nonruptured documented in this encounter Care Teams Respiratory Therapy Director Relationship Specialty Start Date End Date Trinh Coates MD [address] [place] [address] PCP - General 01/11/10 documented as of this encounter
--- OUTSIDE RECORDS SUMMARY | 2023-09-25 11:43 | XMS_ITS | Encounter Summary ---
Author Organization [facility] Address [facility] [place] [address] Care Team Providers Care Data Coder Operator Name Role Phone Trinh Coates MD Primary Care Provider [phone] Reason for Visit * Reason Comments Radiation Follow-up Encounter Details Date Type Department Care Team (Late st Contact Info) Description 07/12/2020 1:00 PM EDT Office Visit Radiation Oncology at [address] [phone] Emily Choi MD [facility] [place] [address] Hormone receptor positive malignant neoplasm [...] & recommend you contactDr. Barnett's office @ [phone] & ask if it might help to [...] for breast ca, L, IDC, gr 3, ER+TX+, Her2 FISH neg, s/p B skin sparing mastectomies w/B free nipple grafts & L ax dissxn; immed B free flap recon attempted but could not be done due to flap arterial spasms; expanders placed; pT1c pN2a. Adjuvant chemo then given, followed by copying machine mechanic exchange for implants. She is taking anne, [...] R rotator cuff by Ortho group in [facility]. Subjective: Aches & pains in joints & [...] LARYNGEAL performed by Valentina Lucas MD at [facility] OR ??? PRO BREAST RECONSTRUC W FREE FLAP Bilateral 04/26/2017 @BREAST RECONSTRUCTION W/ FREE FLAP, SUSAN (WRVU 42.58) performed by Andre Gimenez MD at [facility] ??? PRO BREAST RECONSTRUC W FREE FLAP, W/O IMPLANT Bilateral 12/12/2017 @BREAST RECONSTRUCTION W/ LAT DORSI FLAP,W/O IMPLANT, SUSAN (WRVU 23.36) performed by Andre Gimenez MD at [facility] OR ??? PRO BREAST RECONSTRUC W TISS EXPANDR Bilateral 04/26/2017 BREAST RECONSTRUCTION, IMMEDIATE OR DELAYED, W/ TISSUE SCREWDOWN OPERATOR, INCLUDING SUBSEQUENT EXPANSION (WRVU 18.5) performed by Andre Gimenez MD at [facility] OR ? ? PRO DEBRIDEMENT SUBCUTANEOUS TISSUE 20 SQCM/< 06/22/2017 DEBRIDEMENT SKIN AND SUBCU, BREAST (WRVU 1.01) performed [facility] ??? PRO INCISION OF LYMPH CHANNELS Left 10/18/2018 INCISION & DRAINAGE LYMPHOCELE (WRVU 6.81) performed by Andre Gimenez MD at [facility] OR ??? PRO IV INJ TO TEST BLOOD FLOW IN FLAP/GRAFT Left 10/18/2018 IV INJECTION, AGENT TO TEST VASC FLOW IN FLAP OR GRAFT, ENT (WRVU 1.95) performed [facility] ??? PRO REPLACE TISSUE SCREWDOWN OPERATOR Bilateral 12/12/2017 TISSUE SCREWDOWN OPERATOR REPLACEMENT, WITH PERMANENT PROSTHESIS, SUSAN (WRVU 8.01) performed by Andre Gimenez MD at [facility] OR ??? PRO REVISION RECONSTRUCTED BREAST Left 06/22/2017 REVISION OF RECONSTRUCTED BREAST (WRVU 10.41) performed by Andre Gimenez MD at [facility] OR ??? PRO REVISION RECONSTRUCTED BREAST Bilateral 12/12/2017 REVISION OFRECONSTRUCTED BREAST, SUSAN (WRVU 10.41) performed by Andre Gimenez MD at [facility] OR ??? PRO THYMECTOMY, TRANSCERVICAL N/A 11/02/2015 THYMECTOMY, TRANSCERVICAL APPROACH performed by Valentina Lucas MD at [facility] OR ??? SHOULDER SURGERY [...] 01/22/2024 10:30 AM EST Appointment Mammography/DXA at [place] [phone] Ladi Mendosa MD [facility] [address] [place] [address] 01/30/2024 11:30 AM EST Office Visit Dermatology at [facility] [address] [place] [address] Nilda Luis MD [facility] [place] [address] 02/14/2024 7:30 AM EST [place] [address] Joanna Watts MD [facility] [place] [address] documented as of this encounter Visit Diagnoses Diagnosis 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
--- OUTSIDE RECORDS SUMMARY | 2023-09-25 11:43 | XMS_ITS | Encounter Summary ---
Author Organization [facility] [place] [address] Care Team Providers Care Lithograph Press Operator Tinware Name Role Phone Trinh Coates MD Primary Care Provider [phone] Encounter Details Date Type Department Care Team (Late st Contact Info) Description 10/07/2021 Orders Only Obstetrics [place] [phone] [address] [facility] OBSTETRICS [place] [address] Social History Tobacco Use Types Packs/Day Years [...] AM EST Appointment Mammography/[place] [address] Ladi Mendosa MD [facility] DR HEMATOLOGY [place] [address] 01/30/2024 11:30 AM EST Office Visit Dermatology at [facility] [address] [place] [address] Nilda Luis MD [facility] [place] [address] 02/14/2024 7:30 AM EST [place] [phone] Joanna Watts MD [facility] [place] [address] documented as of this encounter Visit Diagnoses Not on filedocumented in this encounter Care Teams Lithograph Press Operator Tinware Relationship Specialty Start Date End Date Trinh Coates MD [address] [place] [address] [address] [place] [address] PCP - General 01/11/10 documented as of this encounter
--- OUTSIDE RECORDS SUMMARY | 2023-09-25 11:43 | XMS_ITS | Encounter Summary ---
Author Organization [facility] Address [facility] [place] [address] Care Team Providers Care Cotton Tipper Name Role Phone Trinh Coates MD Primary Care Provider [phone] Encounter Details Date Type Department Care Team (Late st Contact Info) Description 05/11/2021 Refill Dermatology at [facility] [address] [place] [address] Nilda Luis MD [facility] [place] [address] Psoriasis Social History Tobacco Use Types Packs/Day [...] 01/22/2024 10:30 AM EST Appointment Mammography/[place] [phone] Ladi Mendosa MD [facility] [place] [address] 01/30/2024 11:30 AM EST Office Visit Dermatology at [facility] [address] [place] [address] Nilda Luis MD [facility] [place] [address] 02/14/2024 7:30 AM EST [place] [phone] Joanna Watts MD [facility] [place] [address] documented as of this encounter Visit Diagnoses Diagnosis Psoriasis Other psoriasis documented in this encounter Care Teams Cotton Tipper Relationship Specialty Start Date End Date Trinh Coates MD [facility] [address] [place] [address] PCP - General 01/11/10 documented as of this encounter
--- OUTSIDE RECORDS SUMMARY | 2023-09-25 11:43 | XMS_ITS | Encounter Summary ---
Author Organization [facility] Address [facility] [place] [address] Care Team Providers Care B2B Sales Professional Name Role Phone Trinh Coates MD Primary Care Provider [phone] Encounter Details Date Type Department Care Team [...] 01/22/2024 10:30 AM EST Appointment Mammography/[place] [address] Ladi Mendosa MD [facility] [address] [place] [address] 01/30/2024 11:30 AM EST Office Visit Dermatology at [facility] [address] [place] [phone] Nilda Luis MD [facility] [place] [address] 02/14/2024 7:30 AM EST Appointment [place] [address] Joanna Watts MD [facility] [address] documented as of this encounter Visit Diagnoses Not on filedocumented in this encounter Care Teams B2B Sales Professional Relationship Specialty Start Date End Date Trinh Coates MD [facility] [address] [address] PCP - General 01/11/10 documented as of this encounter
--- OUTSIDE RECORDS SUMMARY | 2023-09-25 11:43 | XMS_ITS | Encounter Summary ---
Author Organization [facility] [place] [address] Care Team Providers Care Rn First Assist Name Role Phone Tirnh Coates MD Primary Care Provider [phone] Reason for Visit * Reason Comments Specialty Pharmacy Review Encounter Details Date Type Department Care Team (Late st Contact Info) Description 05/02/2022 Specialty [place] [phone] Mike Cavazos, [facility] Social History Tobacco Use Types [...] Cavazos - 05/02/2022 11:59 PM EDT [facility] [...] mandates this medication must be filled through [facility] Specialty Pharm[facility]. documented in this encounter Plan of Treatment Upcoming Encounters Date Type Department Care Team (Late st Contact Info) Description 01/22/2024 10:30 AM EST Appointment Mammography/[place] [address] Ladi Mendosa MD [facility] HEMATOLOGY [place] [address] 01/30/2024 11:30 AM EST Office Visit Dermatology at [place] [address] [place] [address] Nilda Luis MD [facility] [place] [place] [address] 02/14/2024 7:30 AM EST [place] [address] Joanna Watts MD [facility] [place] [address] documented as of this encounter Visit Diagnoses Not on filedocumented in this encounter Care Teams Rn First Assist Relationship Specialty Start Date End Date Trinh Coates MD [facility] [address] [place] [address] PCP - General 01/11/10 documented as of this encounter
--- OUTSIDE RECORDS SUMMARY | 2023-09-25 11:43 | XMS_ITS | Encounter Summary ---
Author Organization [facility] [place] [address] Care Team Providers Care Plate Keeper Name Role Phone Trinh Coates MD Primary Care Provider [phone] Reason for Referral * Diagnostic Test (Routine) - Closed Specialty Diagnoses / Procedures Referred By Contac t Referred To Contact Radiology Diagnoses Right internal carotid artery aneurysm Procedures IR Arteriogram Cerebral IR Arteriogram Cerebral Araceli Levi APRN [facility] [place] [address] [place] [address] Referral ID Status Reason Start Date Expiration Date V isits Requested Visits Authorized [id number] Closed Specialty Service Requested 04/07/2022 10/06/2023 1 1 Reason for Visit * Diagnostic Test (Routine) - Closed Specialty Diagnoses / Procedures Referred By Contac t Referred To Contact Radiology Diagnoses Right internal carotid artery aneurysm Procedures IR Arteriogram Cerebral IR Arteriogram Cerebral Araceli Levi APRN [facility] [place] [address] [place] [address] Referral ID Status Reason Start Date Expiration Date V isits Requested Visits Authorized [id number] Closed Specialty Service Requested 04/07/2022 10/06/2023 1 1 Encounter Details Date Type Department Care Team (Latest Contact Info) Description 05/19/2022 6:33 AM EDT - 05/19/2022 11:59 PM EDT Hospital [place] [address] Araceli Levi, AARTI [facility] [place] [address] Right internal carotid artery aneurysm Discharge Disposition: [...] kee and ask for the NeurologyRadiology resident electronic publishing specialist. OR Peripheral IV site -- slight redness, [...] of : 1965 AGE: 56 y.o. Address: [address] [place] [phone] (home) [phone] (work) Mobile: Telephone Information: Referring Provider: Araceli Levi REASON FOR VISIT: No data recorded Allergies Allergen Reactions ??? Penicillins Thrush ??? Zoloft [Sertraline] PSORIASIS FLARE Order Questions Answers Where will study be performed? [facility] Radiology [120] Is the patient on [...] of left breast in female, estrogen receptor fcveafpzD31.412, Z17.0 ??? S/P breast reconstruction, bilateral Z98.890 [...] R drain removed. Fentanyl 50 mcg IV? [id number] Left breast aspiration/ 30 ml Fentanyl 100 [...] this encounter H&P Notes * Araceli Levi, MAINTENANCE SERVICE TECHNICIAN - 05/18/2022 5:41 PM EDT NEURORADIOLOGY BRIEF [...] WATTS All Staff: Staff Role Kelly Vang Cavalry Officer Jan Durbin MD Attending Krishna Pittman, director of land acquisition Nurse Priscila Watts MD Visitor Christy Rizo [...] 01/22/2024 10:30 AM EST Appointment Mammography/[place] [address] Ladi Mendosa MD [facility] [place] [address] 01/30/2024 11:30 AM EST Office Visit Dermatology at [facility] [address] [place] [phone] Nilda Luis MD [facility] [place] [address] 02/14/2024 7:30 AM EST [place] [phone] Priscila Watts MD [facility] [place] [address] documented as of this encounter Procedures Procedure Name Priority Date/Time Associated Diagnosis Comments IR ARTERIOGRAM CEREBRAL Routine 05/19/2022 9:12 AM EDT Right internal carotid artery aneurysm CREATININE Routine 05/19/2022 6:45 AM EDT Right [...] who have questions please contact the health primary care sales representative that requested your imaging first. ? Electronically signed by: Priscila Watts MD, [facility] ([phone]), at 06/06/2022 3:20 PM Narrative 06/06/2022 3:20 [...] being administered. The above times reflect physician/patient [id number]-[id number] time. MEDICATIONS: 1% Lidocaine 10 ml SC [...] EQUIPMENT: ?? 1. ??Micropuncture access kit. 2. ??5-[place]orese, 10 cm radial Glidesheath 3. ??5-[place]ore[place] Mann II Glidecatheter 4. ??1.5 J Glidewire [...] without difficulty under ultrasound guidance and the 5-[place]orese, 10 cm radial Glidesheath was placed and [...] wasbeing administered. The above times reflect physician/patient [id number]. MEDICATIONS: 1% Lidocaine 10 ml SC Fentanyl [...] None. EQUIPMENT: 1. Micropuncture access kit. 2. 5-[place]orese, 10 cm radial Glidesheath 3. 5-[place] Mann II Glidecatheter 4. 1.5 J Glidewire [...] without difficulty under ultrasound guidance and the 5-[place]orese, 10 cmradial Glidesheath was placed and flushed. [...] patients who have questions please contactthe health primary care sales representative that requested your imaging first. Electronically signed by: Priscila Watts MD, [facility]([phone]), at 06/06/2022 3:20 PM Araceli L Levi MAINTENANCE SERVICE TECHNICIAN IMG IR ORDERABLES * (ABNORMAL) Creatinine (05/19/2022 6:45 AM EDT) Creatinine 1.65(H) 0.70 - 1.20 mg/dL [facility] Est Glomerular Filtration Rate 36(L) >=60 mL/min/1. 73 m?? [facility] Comment: This patient's estimated [...] Comment Spec In Lab Araceli L Levi MAINTENANCE SERVICE TECHNICIAN CHEMISTRY ORDERABLES [facility] [place] [address] * Platelet count (05/19/2022 6:45 AM EDT) Platelet 337 145 - 357 x10(3)/mc L [facility] Immature Plt % 1.0 0.0 - 7.4 % [facility] Comment: Limitation of the Immature Platelet Fraction (IPF)-May be less reliable when the platelet count is less than 33n195/uL due to statistical imprecision. The IPF value [...] in a decreased state of production. References: [employer] The Clinical Value of the Immature Platelet Fraction (IPF) in Cell Recovery Document Number [id number] 07/2010 [employer] The Role of the Immature Platelet Fraction (IPF) in the Differential Diagnosis of Thrombocytopenia, Document [id number] V05 P0514 Blood 05/19/2022 6:45 AM EDT 05/19/2022 6:56 AM EDT Narrative Resulting Agency Comment Spec In Lab Araceli Levi MAINTENANCE SERVICE TECHNICIAN HEMATOLOGY ORDERABLE S Performing Organization Address City/State/[facility] Co de Phone Number [facility] [place] [address] documented in this encounter Visit Diagnoses Diagnosis [...] mL/hr documented in this encounter Care Teams Plate Keeper Relationship Specialty Start Date End Date Trinh Coates MD [facility] [address] [place] [address] PCP - General 01/11/10 documented as of this encounter
--- OUTSIDE RECORDS SUMMARY | 2023-09-25 11:43 | XMS_ITS | Encounter Summary ---
Author Organization [facility] [place] [address] Care Team Providers Care Director Workers Compensation Name Role Phone Trinh Coates MD Primary Care Provider [phone] Encounter Details Date Type Department Care Team (Late st Contact Info) Description 03/28/2022 Ancillary Procedure [place] [address] Trinh Coates MD [address] [place] [address] [address] [place] [address] Social History Tobacco Use Types [...] 01/22/2024 10:30 AM EST Appointment Mammography/[place] [address] Ladi Mendosa MD [facility] [address] HEMATOLOGY [place] [address] 01/30/2024 11:30 AM EST Office Visit Dermatology at [facility] [address] [place] [address] Nilda Luis MD [facility] [place] [address] 02/14/2024 7:30 AM EST [place] [phone] Joanna Watts MD [facility] [place] [address] documented as of this encounter Procedures Procedure Name Priority Date/Time Associated Diagnosis Comments FILM LIBRARY STORAGE ONLY MR HEAD Routine 03/28/2022 12:00 AM EST documented in this encounter Results * Film Library- Storage Only MR Head (03/28/2022 12:00 AM EST) Narrative [facility] - 03/30/2022 4:04 PM EST This exam is auto-finalizing. It's purpose is for storage only. Trinh Coates MD IMG FILM LIBRARY ORD ERABLES Performing Organization Address City/State/[facility] Co de Phone Number [place], [place] documented in this encounter Visit Diagnoses Not on filedocumented in this encounter Care Teams Director Workers Compensation Relationship Specialty Start Date End Date Trinh Coates MD [address] [place] [address] [address] [place] [address] PCP - General 01/11/10 documented as of this encounter
--- OUTSIDE RECORDS SUMMARY | 2023-09-25 11:43 | XMS_ITS | Encounter Summary ---
Author Organization [facility] Address [facility] [place] [address] Care Team Providers Care Sergeant Of Officers Name Role Phone Trinh Coates MD Primary Care Provider [phone] Reason for Referral * Diagnostic Test (Routine) - Closed Specialty Diagnoses / Procedures Referred By Diamante marin Referred To Contact Radiology Diagnoses Malignant neoplasm of upper-outer quadrant of left breast in female, estrogen receptor positive Procedures DXA Central Spine, Hip, and/or Whole Body (Generic) Piter Barnett MD [facility] HEMATOLOGY/[place] [address] [place] [address] Referral ID Status Reason Start Date Expiration Date V isits Requested Visits Authorized [id number] Closed Specialty Service Requested 02/24/2021 08/24/2022 1 1 Reason for Visit * Reason Comments Follow-up Encounter Details Date Type Department Care Team (Late st Contact Info) Description 02/24/2021 10:45 AM EST Office Visit [place] [address] Piter Barnett MD [facility] HEMATOLOGY/[place] [address] Malignant neoplasm of upper-outer quadrant [...] in March 2017. 2.0 cm cancer, high-grade. ER/CO +++, HER-2/pat negative, 4/18 nodes (1/18 additional [...] her mother's side. Oct 2017 Genetic testing: [employer] Common Hereditary Cancers Panel showed no mutation was detected. This means that Wendy does not carry a mutation in the genes detectable by this test. The following genes were evaluated for sequence changes and exonic deletions/duplications: APC, AMAURY, AXIN2, BARD1, BMPR1A, BRCA1, BRCA2, BRIP1, CDH1, CDKN2A (p14ARF), CDKN2A (p28RZY2v), CHEK2, CTNNA1, DICER1, EPCAM (EPCAM: Deletion/duplication testing only (NM_[id number]), GREM1 (GREM1: Promoter region deletion/duplication testing only.), KIT, MEN1, MLH1, MSH2, MSH3, MSH6, MUTYH, NBN, NF1, PALB2, PDGFRA, PMS2, POLD1, POLE, PTEN, RAD50, RAD51C, RAD51D, SDHB, SDHC, SDHD, SMAD4, SMARCA4, STK11, TP53, TSC1, TSC 2, VHL. The following genes were evaluated for sequence changes only: HOXB13 (c.251G>A, p.Myw45Pwj variant only), NTHL1 (NTHL1: Deletion/duplication analysis is not offered for this gene (NM_002528.6), and SDHA. A variant of uncertain significance in the AMAURY gene, specifically c.5727G>A (p.Opi4857Vql), was detected. Interval Hx/ROS: Prior switching between [...] with a high-grade, node-positive left breast cancer ER+/CO+/HER2-. She is s/p bilateral mastectomy, completed adjuvant [...] 01/22/2024 10:30 AM EST Appointment Mammography[place] [address] Ladi Mendosa MD [facility] [place] [address] 01/30/2024 11:30 AM EST Office Visit Dermatology at [facility] [address] [phone] Nilda Luis MD [facility] DERMATOLOGY [place], [place] [phone] 02/14/2024 7:30 AM EST [place] [address] Joanna Watts MD [facility] [place] [address] documented as of this encounter Results * [...] BMD measurements and plots are available in [employer] [facility] under the imaging tab. Paper copies will be sent to providers without [employer] access. If you have received this report without the data sheet and do not have access to [employer] [facility], please contact Radiology Crossbar [employer] Wirer at [phone] Sunday thru Sunday 8am-4pm. ? Bone Density Report ? Name: ?Wendy Sandoval Age: ? 56 Sex: ? Female Ethnicity: ? White Date of : 1965 Referring Provider: PITER BARNETT Study: Bone densitometry was performed. Exam Date: November 15, 2021 Accession number: [id number] Bone Density: Region ?BMD ?T-score ??Z-score ? [...] who have questions please contact the health critical care specialist that requested your imaging first. ? Electronically signed by: Ophelia Carver MD, [facility] ([phone]), at 11/15/2021 1:36 PM Narrative 11/15/2021 1:36 PM EDT EXAMINATION: DXA CENTRAL SPINE, HIP, AND/OR WHOLE BODY (GENERIC) CLINICAL HISTORY: ??56 years Female Aromatase inhibitor therapy for BrCa (as entered by ordering provider) TECHNIQUE: Scans were acquired at the lumbar spine, distal right forearm and left hip using the [employer] A system. FINDINGS: Femoral neck BMD: 0.723 g/cm2 Lowest T-score at the diagnostic region of interest: T-score: -1.1, BUSHRA: Femoral neck, WHO diagnosis: osteopenia. ......... Comparison......... Baseline scan:January 29, 2019 Total spine: Compared to the baseline, 0.033 g/cm2 (3 %) increase. At [facility], least significant change for bone mineral density measurements at the spine region of interest: 0.031 g/cm2 Total hip: Compared to the baseline, -0.042 g/cm2 (5 %) decrease. At [facility], least significant change for bone mineral density measurements at the left total hip region of interest: 0.025 g/cm2 Procedure Note Ophelia Carver MD - 11/15/2021 EXAMINATION: DXA CENTRAL SPINE, HIP, AND/OR WHOLE BODY (GENERIC) CLINICAL HISTORY: 56 years Female Aromatase inhibitor therapy for BrCa(as entered by ordering provider) TECHNIQUE: Scans were acquired at the lumbar spine, distal right forearmand left hip using the We[employer]orce A system. FINDINGS: Femoral neck BMD: 0.723 g/cm2 Lowest T-score at the diagnostic region of interest: T-score: -1.1, BUSHRA: Femoral neck, WHO diagnosis: osteopenia. ......... Comparison......... Baseline scan:January 29, 2019 Total spine: Compared to the baseline, 0.033 g/cm2 (3 %) increase. At [facility], least significant change for bonemineral density measurements at the spine region of interest: 0.031 g/cm2 Total hip: Compared to the baseline, -0.042 g/cm2 (5 %) decrease. At [facility], least significant change for bonemineral density measurements [...] BMD measurements and plots are available in [facility] the imaging tab. Paper copies will be sent to providers without [employer] [facility] access.If you have received this report without the data sheet and do not haveaccess to [employer] [employer] [facility], please contact Radiology [employer] at [phone] Sunday thruFriday 8am-4pm. Bone Density Report Name: Wendy Sandoval Age: 56 Sex: Female Ethnicity: White Date of : 1965 Referring Provider: PITER BARNETT Study: Bone densitometry was performed. Exam Date: November 15, 2021 Accession number: [id number] Bone Density: Region BMD T-score Z-score AP [...] patients who have questions please contactthe health critical care specialist that requested your imaging first. Electronically signed by: Ophelia Carver MD, [facility]([phone]), at 11/15/2021 1:36 PM Piter Barnett MD IMG DEXA ORDERABLES documented in this encounter Visit Diagnoses Diagnosis Malignant neoplasm of upper-outer quadrant of left breast in female, estrogen receptor positive Malignant neoplasm of upper-outer quadrant of left breast in female, estrogen receptor positive documented in this encounter Care Teams Sergeant Of Officers Relationship Specialty Start Date End Date Trinh Coates MD [address] [place] [address] PCP - General 01/11/10 documented as of this encounter
--- OUTSIDE RECORDS SUMMARY | 2023-09-25 11:43 | XMS_ITS | Encounter Summary ---
Author Organization [facility] Address [facility] [place] [address] Care Team Providers Care Mechanical Engineering Director Name Role Phone Trinh Coates MD Primary Care Provider [phone] Encounter Details Date Type Department Care Team (Late st Contact Info) Description 07/21/2021 1:45 PM EDT Office Visit Radiation Oncology at [address] [address] Tahira Cardenas, MENTAL MEASUREMENTS TEACHER [facility] [place] [address] Hormone receptor positive malignant neoplasm [...] switched [facility] [place] [address] Phone: RADIATION ONCOLOGY FOLLOW UP NOTE Date [...] for breast ca, L, IDC, 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 Adjuvant chemo then given, followed by shoddy mill worker exchange for implants. ?? She was taking [...] R rotator cuff by Ortho group in [facility]. ?? Subjective: Aches & pains in joints [...] completely. Wendy brought her mother here from [place] for her treatment. There is a ceratin amt of concern for memory issues and perhaps a bit of chemo brain fog in this regard there is concern about her mother wanting to return to home in [place] without the support s he needs. We [...] IR Drain Check/Change/Remove 11/20/2017 Marcos Dey MD [facility] INTERVENTIONL RAD ??? IR MEDIPORT REMOVAL 01/25/2018 IR Mediport Removal 01/25/2018 Scooby Muñoz APRN [facility] INTERVENTIONL RAD ??? PRG EMG, LARYNX N/A 11/02/2015 FACIAL NERVE MONITORING, SETUP LARYNGEAL performed by Valentina Lucas MD at [facility] MAIN OR ??? PRO BREAST RECONSTRUCTION IMMT/DLYD W/TISS LIFE SCIENCE RESEARCH ASSISTANT SBSQ EXPANSION Bilateral 04/26/2017 BREAST RECONSTRUCTION, IMMEDIATE OR DELAYED, W/ TISSUE LIFE SCIENCE RESEARCH ASSISTANT, INCLUDING SUBSEQUENT EXPANSION (WRVU 18.5) performed by Andre Gimenez MD at [facility] OR ??? PRO BREAST RECONSTRUCTION W FREE FLAP Bilateral 04/26/2017 @BREAST RECONSTRUCTION W/ FREE FLAP, SUSAN (WRVU 42.58) performed by Andre Gimenez MD at [facility] ??? PRO BREAST RECONSTRUCTION W/LATSMS D/SI FLAP WO PRSTHC IMPL Bilateral 12/12/2017 @BREAST RECONSTRUCTION W/ LAT DORSI FLAP,W/O IMPLANT, SUSAN (WRVU 23.36) performed by Andre Gimenez MD at [facility] OR ? ? PRO DEBRIDEMENT SUBCUTANEOUS TISSUE 20 SQCM/< 06/22/2017 DEBRIDEMENT SKIN AND SUBCU, BREAST (WRVU 1.01) performed by Andre Gimenez MD at [facility] OR ??? PRO EXPLORE PARATHYROID GLANDS N/A 11/02/2015 PARATHYROIDECTOMY OR EXPLORATION OF PARATHYROID(S) performed by Valentina Lucas MD at [facility] OR ? ? PRO FULL THICK GRFT TRUNK <20 SQCM Bilateral 04/26/2017 FTSG, FREE, DIR CLOSE DONOR SITE, TRUNK, 20 SQ CM OR LESS (WRVU 9.15) performed by Andre Gimenez MD at [facility] OR ??? PRO INCISION OF LYMPH CHANNELS Left 10/18/2018 INCISION & DRAINAGE LYMPHOCELE (WRVU 6.81) performed by Andre Gimenez MD at [facility] OR ??? PRO IV INJ TO TEST BLOOD FLOW IN FLAP/GRAFT Left 10/18/2018 IV INJECTION, AGENT TO TEST VASC FLOW IN FLAP OR GRAFT, ENT (WRVU 1.95) performed by Andre Gimenez MD at [facility] OR ??? PRO MASTECTOMY, SIMPLE, COMPLETE Bilateral 04/26/2017 MASTECTOMY, SIMPLE, COMPLETE-SUSAN (WRVU 15.85) performed by Jolie Menendez MD at [facility] OR ??? PRO PARTIAL REMOVAL OF RIB Bilateral 04/26/2017 EXCISION OF RIB, PARTIAL (WRVU 7.26) performed by Andre Gimenez MD at [facility] MAIN OR ??? PRO REMOVE ARMPITS LYMPH NODES COMPLT Left 04/26/2017 LYMPHADENECTOMY, AXILLARY, COMPLETE (WRVU 13.87) performed by Jolie Menendez MD at [facility] OR ??? PRO REPLACE TISSUE LIFE SCIENCE RESEARCH ASSISTANT Bilateral 12/12/2017 TISSUE LIFE SCIENCE RESEARCH ASSISTANT REPLACEMENT, WITH PERMANENT PROSTHESIS, SUSAN (WRVU 8.01) performed by Andre Gimenez MD at [facility] OR ??? PRO REVISION RECONSTRUCTED BREAST Left 06/22/2017 REVISION OF RECONSTRUCTED BREAST (WRVU 10.41) performed by Andre Gimenez MD at [facility] OR ??? PRO REVISION RECONSTRUCTED BREAST Bilateral 12/12/2017 REVISION OFRECONSTRUCTED BREAST, SUSAN (WRVU 10.41) performed by Andre Gimenez MD at [facility] OR ??? PRO THYMECTOMY, TRANSCERVICAL N/A 11/02/2015 THYMECTOMY, TRANSCERVICAL APPROACH performed by Valentina Lucas MD at [facility] MAIN OR ??? SHOULDER SURGERY [...] her mother returning to her home in [place] with some mentation/cognitive issues. # lifestyle/wellness concerns: [...] no mammogram is scheduled. Tahira Cardenas MSN, MENTAL MEASUREMENTS TEACHER, VOLCANOLOGIST-C Nurse Practitioner Radiation Oncology documented in this encounter Plan of Treatment Upcoming Encounters Date Type Department Care Team (Late st Contact Info) Description 01/22/2024 10:30 AM EST Appointment Mammography[place] [address] Ladi Mendosa MD [facility] HEMATOLOGY [place] [address] 01/30/2024 11:30 AM EST Office Visit [facility] at [facility] [address] [place] [address] Nilda Luis MD [facility] [place] [address] 02/14/2024 7:30 AM [place] [phone] Joanna Watts MD [facility] [place] [address] documented as of this encounter Visit Diagnoses Diagnosis 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
--- OUTSIDE RECORDS SUMMARY | 2023-09-25 11:43 | XMS_ITS | Encounter Summary ---
Author Organization [facility] [place] [address] Care Team Providers Care Air Sampler Name Role Phone Trinh Coates MD Primary Care Provider [phone] Encounter Details Date Type Department Care Team (Late st Contact Info) Description 10/04/2021 Telephone Obstetrics [place] [address] Mnaa Juárez RN Social History Tobacco Use Types [...] AM EST Appointment Mammography/DXA at [place] [phone] Ladi Mendosa MD [facility] HEMATOLOGY [place] [address] 01/30/2024 11:30 AM EST Office Visit Dermatology at [address] [address] Nilda Luis MD [facility] [place] [address] 02/14/2024 7:30 AM [place] [address] Joanna Watts MD [facility] [place] [address] documented as of this encounter Visit Diagnoses Not on filedocumented in this encounter Care Teams Air Sampler Relationship Specialty Start Date End Date Trinh Coates MD [facility] [address] [place] [address] PCP - General 01/11/10 documented as of this encounter
--- OUTSIDE RECORDS SUMMARY | 2023-09-25 11:43 | XMS_ITS | Encounter Summary ---
Author Organization [facility] [place] [address] Care Team Providers Care Director Of Early Childhood Education Name Role Phone Trinh Coates MD Primary Care Provider [phone] Reason for Visit * Reason Comments Specialty Pharmacy Review Encounter Details Date Type Department Care Team (Late st Contact Info) Description 05/04/2020 Specialty [place] [phone] [facility] Social History Tobacco Use Types [...] to review their eligibility to fill at Replaced By [facility]. Per patient's medication list they are prescribed STELARA 45 MG/0.5 ML and the medication is not able to be filled at the - Specialty Pharmacy. documented in this encounter Plan of Treatment Upcoming Encounters Date Type Department Care Team (Late st Contact Info) Description 01/22/2024 10:30 AM EST Appointment Mammography/[place] [address] Ladi Mendosa MD [facility] [place] [address] 01/30/2024 11:30 AM EST Office Visit Dermatology at [facility] [address] [place] [address] Nilda Luis MD [facility] [place] [address] 02/14/2024 7:30 AM EST Appointment Radiology at [place] [phone] Joanna Watts MD [facility] [place] [address] documented as of this encounter Visit Diagnoses Not on filedocumented in this encounter Care Teams Director Of Early Childhood Education Relationship Specialty Start Date End Date Trinh Coates MD [facility] [address] [place] [address] PCP - General 01/11/10 documented as of this encounter
--- OUTSIDE RECORDS SUMMARY | 2023-09-25 11:43 | XMS_ITS | Encounter Summary ---
[place] [address] Care Team Providers Care Summer Child Caregiver Name Role Phone Trinh Coates MD Primary Care Provider [phone] Reason for Visit * Reason Onset Date Comments Follow-up 09/03/2020 restart Encounter Details Date Type Department Care Team (Late st Contact Info) Description 09/03/2020 Telephone H[place]ology [place] [phone] Arpita Ordonez RN Follow-up (restart ) Social [...] note were not included. Message received from secretary to the vice president: Kim Sanchez [facility] Hem Onc Triage Breast Good morning, Wendy called to give an update on how she is doing since re-starting her Anastrazole. Could you please give her a call at [phone]? Doing okay back on anastrozole. Total body ache that is waking her up. It is in her muscles and canhardly go up a flight of stairs without stopping with pain. End of day is worse. Appointment with vision specialist is in September. . Will stop [...] 01/22/2024 10:30 AM EST Appointment Mammography/[place] [phone] Ladi Mendosa MD [facility] [address] [place] [address] 01/30/2024 11:30 AM EST Office Visit Dermatology at [place] [address] [place] [phone] Nilda Luis MD [facility] [place] [address] 02/14/2024 7:30 AM EST [place] [phone] Joanna Watts MD [facility] [place] [address] documented as of this encounter Visit Diagnoses Not on filedocumented in this encounter Care Teams Summer Child Caregiver Relationship Specialty Start Date End Date Trinh Coates MD [address] [place] [address] PCP - General 01/11/10 documented as of this encounter
--- OUTSIDE RECORDS SUMMARY | 2023-09-25 11:43 | XMS_ITS | Encounter Summary ---
[place] [address] Care Team Providers Care Power Shear Operator Name Role Phone Trinh Coates MD Primary Care Provider [phone] Reason for Visit * Reason Comments Prior Authorization Stelara 45mg/0.5 mL SOSY Encounter Details Date Type Department Care Team (Late st Contact Info) Description 05/16/2022 Specialty [place] [address] Mike Cavazos, TUBING SUPERVISOR Social History Tobacco Use Types Packs/Day Years [...] Patient : 1965 Patient Address: [address] [facility] [address] (home) Medication Name: STELARA 45 MG/0.5 ML SUBCUTANEOUS SYRINGE Medication ID: [id number] Subscriber Insurance: [employer] (ADV) Subscriber Insurance Comment: Fax: Physician: NILDA LUIS Physician Comment: Sent Via: [facility] La: [id number] Ref/Case/PA#: [id number] Medication Strength Frequency Requested: Inject the contents of 1 syringe (45 mg) subcutaneously once every 12 weeks Qty/Day Supply: New Start: Renewal Diagnosis & ICD-10 Code: L40.9 Psoriasis Patient Notified: Yes Submission Notes: None Mike Cavazos 05/16/22 8:36 AM * Mike Cavazos - 05/16/2022 8:33 AM EDT [facility], Prior Authorization Approval Medication Name: STELARA 45 MG/0.5 ML SUBCUTANEOUS SYRINGE Medication ID: [id number] Approval Dates: 09/14/2021 to 09/14/2022 Insurance requirements/notes: None Other Notes: None Case/Reference #: Approval notification Received via: Telephone Copay: Copay assistance: Other (Enter Comment) Copay Notes: Unable to obtain copay information as the patient fills with [facility] Specialty Insurance mandated Pharmacy: [facility] Specialty Fillable at [facility] Specialty Pharmacy: No Patient Notified: Yes Pharmacy staff will be reaching out to the patient to inform them of their [facility]. If applicable, a pharmacist will speak with the patient to offer our specialty pharmacy services and to arrange delivery of their medication. Mike Cavazos 05/16/22 3:06 PM documented in this encounter Plan of Treatment Upcoming Encounters Date Type Department Care Team (Late st Contact Info) Description 01/22/2024 10:30 AM EST Appointment Mammography[place] [address] Ladi Mendosa MD [facility] [place] [address] 01/30/2024 11:30 AM EST Office Visit Dermatology at [place] [address] [place] [address] Nilda Luis MD [facility] [place] [address] 02/14/2024 7:30 AM EST Appointment Radiology at [place] [phone] Joanna Watts MD [facility] [place] [address] documented as of this encounter Visit Diagnoses Not on filedocumented in this encounter Care Teams Power Shear Operator Relationship Specialty Start Date End Date Trinh Coates MD [facility] [address] [place] [address] PCP - General 01/11/10 documented as of this encounter
--- OUTSIDE RECORDS SUMMARY | 2023-09-25 11:43 | XMS_ITS | Encounter Summary ---
Author Organization [facility] Address [facility] [place] [address] Care Team Providers Care Office Analyst Name Role Phone Trinh Coates MD Primary Care Provider [phone] Reason for Visit * Reason Comments Medication Refill Encounter Details Date Type Department Care Team (Late st Contact Info) Description 05/16/2022 Refill Dermatology at [facility] [address] [place] [address] Nilda Luis MD [facility] [place] [address] Psoriasis Social History Tobacco Use Types Packs/Day [...] 01/22/2024 10:30 AM EST Appointment Mammography/[place] [phone] Ladi Mendosa MD [facility] [place] [address] 01/30/2024 11:30 AM EST Office Visit Dermatology at [address] [phone] Nilda Luis MD [facility] [place] [address] 02/14/2024 7:30 AM [place] [phone] Joanna Watts MD [facility] NEUROSURGERY [place] [phone] documented as of this encounter Visit Diagnoses Diagnosis Psoriasis Other psoriasis documented in this encounter Care Teams Office Analyst Relationship Specialty Start Date End Date Trinh Coates MD [address] [place] [address] PCP - General 01/11/10 documented as of this encounter
--- OUTSIDE RECORDS SUMMARY | 2023-09-25 11:43 | XMS_ITS | Encounter Summary ---
Author Organization [facility] [place] [address] Care Team Providers Care Skein Bander Name Role Phone Trinh Coates MD Primary Care Provider [phone] Encounter Details Date Type Department Care Team (Late st Contact Info) Description 05/19/2022 Notes [place] [address] Araceli Levi, [employer] DEALER [facility] [place] [address] Social History Tobacco Use Types Packs/Day Years [...] 01/22/2024 10:30 AM EST Appointment Mammography/[place] [address] Ladi Mendosa MD [facility] [address] [place] [address] 01/30/2024 11:30 AM EST Office Visit Dermatology at [facility] [address] [place] [address] Nilda Luis MD [facility] [place] [address] 02/14/2024 7:30 AM EST Appoint[place] [phone] Joanna Watts MD [facility] [place] [address] documented as of this encounter Visit Diagnoses Diagnosis Right internal carotid artery aneurysm Cerebral aneurysm, nonruptured documented in this encounter Care Teams Skein Bander Relationship Specialty Start Date End Date Trinh Coates MD [address] [place] [address] PCP - General 01/11/10 documented as of this encounter
--- OUTSIDE RECORDS SUMMARY | 2023-09-25 11:43 | XMS_ITS | Encounter Summary ---
Author Organization [facility] [place] [address] Care Team Providers Care Casing Blower Name Role Phone Trinh Coates MD Primary Care Provider [phone] Reason for Visit * Reason Comments Follow-up Urgent visit Encounter Details Date Type Department Care Team (Late st Contact Info) Description 10/04/2021 3:40 PM EDT Office Visit Obstetrics [place] [address] [facility] [place] [address] Labial lesion Social History Tobacco Use Types [...] 10/04/2021 3:40 PM EDT CC: Subjective: Wendy Sandoval is a 56 y.o. female who is [...] of left breast in female, estrogen receptor lfneigxf50/10/2018 ??? Hyperparathyroidism 11/02/2015 ??? Obstructive sleep apnea [...] IR Drain Check/Change/Remove 11/20/2017 Marcos Dey MD [facility] ??? IR MEDIPORT REMOVAL 01/25/2018 IR Mediport Removal 01/25/2018 Scooby Muñoz, PARKING METER SERVICER [facility] ??? PRG EMG, LARYNX N/A 11/02/2015 FACIAL NERVE MONITORING, SETUP LARYNGEAL performed by Valentina Lucas MD at [facility] OR ??? PRO BREAST RECONSTRUCTION IMMT/DLYD W/TISS COMPUTER LAB AIDE SBSQ EXPANSION Bilateral 04/26/2017 BREAST RECONSTRUCTION, IMMEDIATE OR DELAYED, W/ TISSUE COMPUTER LAB AIDE, INCLUDING SUBSEQUENT EXPANSION (WRVU 18.5) performed by Andre Gimenez MD at [facility] OR ??? PRO BREAST RECONSTRUCTION W FREE FLAP Bilateral 04/26/2017 @BREAST RECONSTRUCTION W/ FREE FLAP, SUSAN (WRVU 42.58) performed by Andre Gimenez MD at [facility] ??? PRO BREAST RECONSTRUCTION W/LATSMS D/SI FLAP WO PRSTHC IMPL Bilateral 12/12/2017 @BREAST RECONSTRUCTION W/ LAT DORSI FLAP,W/O IMPLANT, SUSAN (WRVU 23.36) performed by Andre Gimenez MD at [facility] OR ? ? PRO DEBRIDEMENT SUBCUTANEOUS TISSUE 20 SQCM/< 06/22/2017 DEBRIDEMENT SKIN AND SUBCU, BREAST (WRVU 1.01) performed by Andre Gimenez MD at [facility] OR ??? PRO EXPLORE PARATHYROID GLANDS N/A 11/02/2015 PARATHYROIDECTOMY OR EXPLORATION OF PARATHYROID(S) performed by Valentina Lucas MD at [facility] OR ? ? PRO FULL THICK GRFT TRUNK <20 SQCM Bilateral 04/26/2017 FTSG, FREE, DIR CLOSE DONOR SITE, TRUNK, 20 SQ CM OR LESS (WRVU 9.15) performed by Andre Gimenez MD at [facility] OR ??? PRO INCISION OF LYMPH CHANNELS Left 10/18/2018 INCISION & DRAINAGE LYMPHOCELE (WRVU 6.81) performed by Andre Gimenez MD at [facility] OR ??? PRO IV INJ TO TEST BLOOD FLOW IN FLAP/GRAFT Left 10/18/2018 IV INJECTION, AGENT TO TEST VASC FLOW IN FLAP OR GRAFT, ENT (WRVU 1.95) performed by Andre Gimenez MD at [facility] OR ??? PRO MASTECTOMY, SIMPLE, COMPLETE Bilateral 04/26/2017 MASTECTOMY, SIMPLE, COMPLETE-SUSAN (WRVU 15.85) performed by Jolie Menendez MD at [facility] OR ??? PRO PARTIAL REMOVAL OF RIB Bilateral 04/26/2017 EXCISION OF RIB, PARTIAL (WRVU 7.26) performed by Andre Gimenez MD at [facility] OR ??? PRO REMOVE ARMPITS LYMPH NODES COMPLT Left 04/26/2017 LYMPHADENECTOMY, AXILLARY, COMPLETE (WRVU 13.87) performed by Jolie Menendez MD at [facility] OR ??? PRO REPLACE TISSUE COMPUTER LAB AIDE Bilateral 12/12/2017 TISSUE COMPUTER LAB AIDE REPLACEMENT, WITH PERMANENT PROSTHESIS, SUSAN (WRVU 8.01) performed by Andre Gimenez MD at [facility] OR ??? PRO REVISION RECONSTRUCTED BREAST Left 06/22/2017 REVISION OF RECONSTRUCTED BREAST (WRVU 10.41) performed by Andre Gimenez MD at [facility] OR ??? PRO REVISION RECONSTRUCTED BREAST Bilateral 12/12/2017 REVISION OFRECONSTRUCTED BREAST, SUSAN (WRVU 10.41) performed by Andre Gimenez MD at [facility] OR ??? PRO THYMECTOMY, TRANSCERVICAL N/A 11/02/2015 THYMECTOMY, TRANSCERVICAL APPROACH performed by Valentina Lucas MD at [facility] OR ??? SHOULDER SURGERY Left [...] about the size of a pin head. Multiple Drum Sander Helper present Assessment/Plan: Wendy is a 56 yo [...] 01/22/2024 10:30 AM EST Appointment Mammography/[place] [phone] Ladi Mendosa MD [facility] HEMATOLOGY [place] [address] 01/30/2024 11:30 AM EST Office Visit Dermatology at [facility] [address] [place] [phone] Nilda Luis MD [facility] [place] [address] 02/14/2024 7:30 AM EST [place] [phone] Joanna Watts MD [facility] [place] [address] documented as of this encounter Procedures Procedure Name Priority Date/Time Associated Diagnosis Comments 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
--- OUTSIDE RECORDS SUMMARY | 2023-09-25 11:43 | XMS_ITS | Encounter Summary ---
Author Organization [facility] [place] [address] Care Team Providers Care Lockstitch Waistband Setter Name Role Phone Trinh Coates MD Primary Care Provider [phone] Reason for Referral * Consultation (Routine) - Closed Specialty Diagnoses / Procedures Referred By Diamante marin Referred To Contact Neurosurgery Diagnoses Family history of brain aneurysm Abnormal finding on MRI of brain Trinh Coates MD [address] [place] [address] [facility] Neurosurgery [address] [place] [phone] Referral ID Status Reason Start Date Expiration Date V isits Requested Visits Authorized [id number] Closed Consult, Test & Treat PCP Updated and/or Approved 03/30/2022 03/30/2023 6 6 Encounter Details Date Type Department Care Team (Latest Contact Info) Description 03/30/2022 Transcribe Orders eDH Incoming Referrals [phone] Trinh Coates MD [address] [place] [address] Family history of brain aneurysm; [...] 01/22/2024 10:30 AM EST Appointment Mammography/DXA at [place] [phone] Ladi Mendosa MD [facility] DR HEMATOLOGY [place] [address] 01/30/2024 11:30 AM EST Office Visit Dermatology at [place] [address] [place] [phone] Nilda Luis MD [facility] [place] [address] 02/14/2024 7:30 AM EST Appointment [place] [phone] Joanna Watts MD [facility] [place] [address] Scheduled Referrals Name Type Priority Associated Diagnoses [...] head documented in this encounter Care Teams Lockstitch Waistband Setter Relationship Specialty Start Date End Date Trinh Coates MD [address] [place] [address] PCP - General 01/11/10 documented as of this encounter
--- OUTSIDE RECORDS SUMMARY | 2023-09-25 11:43 | XMS_ITS | Encounter Summary ---
[place] [address] Care Team Providers Care Plate And Weld Inspector Name Role Phone Trinh Coates MD Primary Care Provider [phone] Reason for Visit * Reason Onset Date Comments Follow-up 07/13/2020 AI s/s Encounter Details Date Type Department Care Team (Late st Contact Info) Description 07/13/2020 Telephone Hematology [place] [phone] Arpita Ordonez RN Follow-up (AI s/s) Social [...] note were not included. Message received from office secretary: Lakia Alfaro [facility] T[place] Breast Call back [phone] Wendy called with c/o joint, muscle, overall [...] AM EST Appointment Mammography/DXA at [place] [phone] Ladi Mendosa MD [facility] [place] [address] 01/30/2024 11:30 AM EST Office Visit Dermatology at [address] [address] Nilda Luis MD [facility] [place] [address] 02/14/2024 7:30 AM EST Appointment [place] [address] Joanna Watts MD [facility] NEUROSURGERY [place], [place] [phone] documented as of this encounter Visit Diagnoses Not on filedocumented in this encounter Care Teams Plate And Weld Inspector Relationship Specialty Start Date End Date Trinh Coates MD [facility] [address] [place] [address] PCP - General 01/11/10 documented as of this encounter
--- OUTSIDE RECORDS SUMMARY | 2023-09-25 11:43 | XMS_ITS | Encounter Summary ---
[place] [address] Care Team Providers Care Machine Stuffer Automatic Name Role Phone Trinh Coates MD Primary Care Provider [phone] Reason for Visit * Reason Onset Date Comments Follow-up 08/11/2020 AI Holiday anast rozole Encounter Details Date Type Department Care Team (Late st Contact Info) Description 08/11/2020 Telephone Hematology [place] [phone] Arpita Ordonez RN Follow-up (AI Holiday anastrozole) [...] the original note were not included. Arpita Odronez RN P [facility] Triage Breast Follow up AI [...] 01/22/2024 10:30 AM EST Appointment Mammography/DXA at [place] [phone] Ladi Mendosa MD [facility] [place] [address] 01/30/2024 11:30 AM EST Office Visit Dermatology at [address] [phone] Nilda Luis MD [facility] [place] [address] 02/14/2024 7:30 AM EST App[place] [address] Joanna Watts MD [facility] [place] [address] documented as of this encounter Visit Diagnoses Not on filedocumented in this encounter Care Teams Machine Stuffer Automatic Relationship Specialty Start Date End Date Trinh Coates MD [facility] [address] [place] [address] PCP - General 01/11/10 documented as of this encounter
--- OUTSIDE RECORDS SUMMARY | 2023-09-25 11:43 | XMS_ITS | Encounter Summary ---
Author Organization [facility] Address [place] [address] Care Team Providers Care Airplane Fueler Name Role Phone Trinh Coates MD Primary Care Provider [phone] Encounter Details Date Type Department Care Team (Late st Contact Info) Description 04/14/2022 Telephone Dermatology at [facility] [address] [place] [address] Nilda Luis MD [facility] [place] [address] Social History Tobacco Use Types Packs/Day Years [...] EST I left a message for Wendy Lanier Lori returning her voicemail to get scheduled with Dr. Luis. documented in this encounter Plan of Treatment Upcoming Encounters Date Type Department Care Team (Late st Contact Info) Description 01/22/2024 10:30 AM EST Appointment Mammography/[place] [address] Ladi Mendosa MD [facility] HEMATOLOGY [place] [address] 01/30/2024 11:30 AM EST Office Visit Dermatology at [facility] [address] [place] [phone] Nilda Luis MD [facility] [place] [address] 02/14/2024 7:30 AM EST Appointment Radiology at [place] [phone] Joanna Watts MD [facility] [place] [address] documented as of this encounter Visit Diagnoses Not on filedocumented in this encounter Care Teams Airplane Fueler Relationship Specialty Start Date End Date Trinh Coates MD [facility] [address] [place] [address] PCP - General 01/11/10 documented as of this encounter
--- OUTSIDE RECORDS SUMMARY | 2023-09-25 11:43 | XMS_ITS | Encounter Summary ---
Author Organization [facility] Address [facility] [place] [address] Care Team Providers Care Finisher Plate Name Role Phone Trinh Coates MD Primary Care Provider [phone] Reason for Visit * Reason Comments Medication Refill Encounter Details Date Type Department Care Team (Late st Contact Info) Description 03/01/2021 Refill Dermatology at [facility] [address] [place] [address] Anderson Zhou MD [facility] [place] [address] Psoriasis Social History Tobacco Use Types Packs/Day [...] AM EST Appointment Mammography/[place] [address] Ladi Mendosa MD [facility] HEMATOLOGY [place] [address] 01/30/2024 11:30 AM EST Office Visit Dermatology at [facility] [address] [place] [address] Nilda Luis MD [facility] [place] [address] 02/14/2024 7:30 AM EST Appoint[place] [phone] Joanna Watts MD [facility] [place] [address] documented as of this encounter Visit Diagnoses Diagnosis Psoriasis Other psoriasis documented in this encounter Care Teams Finisher Plate Relationship Specialty Start Date End Date Trinh Coates MD [facility] [address] [place] [address] PCP - General 01/11/10 documented as of this encounter
--- OUTSIDE RECORDS SUMMARY | 2023-09-25 11:43 | XMS_ITS | Encounter Summary ---
[place] [address] Care Team Providers Care Through Operator Name Role Phone Trinh Coates MD Primary Care Provider [phone] Reason for Visit * Reason Onset Date Comments Follow-up 08/03/2020 AI Holiday Encounter Details Date Type Department Care Team (Late st Contact Info) Description 08/03/2020 Telephone Hematology [place] [phone] Arpita Ordonez RN Follow-up (AI Holiday) Social [...] were not included. Arpita Ordonez RN P [facility] Hem Onc Triage Breast Follow up AI [...] 01/22/2024 10:30 AM EST Appointment Mammography/[place] [address] Ladi Mendosa MD [facility] HEMATOLOGY [place] [address] 01/30/2024 11:30 AM EST Office Visit Dermatology at [address] [phone] Nilda Luis MD [facility] [place] [address] 02/14/2024 7:30 AM EST [place] [address] Joanna Watts MD [facility] [place] [address] documented as of this encounter Visit Diagnoses Not on filedocumented in this encounter Care Teams Through Operator Relationship Specialty Start Date End Date Trinh Coates MD [address] [facility] [address] [place] [address] PCP - General 01/11/10 documented as of this encounter
--- OUTSIDE RECORDS SUMMARY | 2023-09-25 11:43 | XMS_ITS | Encounter Summary ---
[place] [address] Care Team Providers Care Field Engineer Name Role Phone Trinh Coates MD Primary Care Provider [phone] Reason for Referral * Consultation (Routine) - Canceled Specialty Diagnoses / Procedures Referred By Diamante marin Referred To Contact Orthopaedics Diagnoses Acute meniscal injury of knee, left, initial encounter Rupture of anterior cruciate ligament of left knee, initial encounter ACUTE meniscal injury of knee, left Rupture of anterior cruciate ligament of left knee Samm Nazario MD [address] [place] [address] [facility] Orthopaedics [address] [place] [phone] Referral ID Status Reason Start Date Expiration Date Visits Requested Visits Authorized [id number] Canceled Consult, Test & Treat PCP Updated and/or Approved 01/06/2022 01/06/2023 6 6 Encounter Details Date Type Department Care Team (Latest Contact Info) Description 01/06/2022 Transcribe Orders eDH Incoming Referrals [phone] Samm Nazario MD [address] [place] [address] Acute meniscal injury of knee, [...] 01/22/2024 10:30 AM EST Appointment Mammography/[place] [address] Ladi Mendosa MD [facility] HEMATOLOGY [place] [address] 01/30/2024 11:30 AM EST Office Visit Dermatology at [address] [place] [address] Nilda Luis MD [facility] [place] [address] 02/14/2024 7:30 AM EST Appointment [place] [phone] Joanna Watts MD [facility] [address] Scheduled Referrals Name Type Priority Associated Diagnoses [...] encounter documented in this encounter Care Teams Field Engineer Relationship Specialty Start Date End Date Trinh Coates MD [address] [place] [address] PCP - General 01/11/10 documented as of this encounter
--- OUTSIDE RECORDS SUMMARY | 2023-09-25 11:43 | XMS_ITS | Encounter Summary ---
Author Organization [facility] Address [facility] [place] [address] Care Team Providers Care Maid Cleaning Cooking Name Role Phone Trinh Coates MD Primary Care Provider [phone] Encounter Details Date Type Department Care Team (Latest Contact Info) Description 03/11/2021 11:00 AM EST Office Visit [place] [address] Zackery Dawson MD [facility] [place] [address] Hypertension, unspecified type; Aldosteronism Social History Tobacco [...] Improved compared to prior spot checks in 2015. [...] IR Drain Check/Change/Remove 11/20/2017 Marcos Dey MD [facility] ??? IR MEDIPORT REMOVAL 01/25/2018 IR Mediport Removal 01/25/2018 ToniScooby marques Carlos Alberto, RETAIL SALES MERCHANDISER [facility] ??? PRG EMG, LARYNX N/A 11/02/2015 FACIAL NERVE MONITORING, SETUP LARYNGEAL performed by Valentina Lucas MD at [facility] OR ??? PRO BREAST RECONSTRUCTION IMMT/DLYD W/TISS SERVOMECHANISM ASSEMBLER SBSQ EXPANSION Bilateral 04/26/2017 BREAST RECONSTRUCTION, IMMEDIATE OR DELAYED, W/ TISSUE SERVOMECHANISM ASSEMBLER, INCLUDING SUBSEQUENT EXPANSION (WRVU 18.5) performed by Andre Gimenez MD at [facility] OR ??? PRO BREAST RECONSTRUCTION W FREE FLAP Bilateral 04/26/2017 @BREAST RECONSTRUCTION W/ FREE FLAP, SUSAN (WRVU 42.58) [facility]?? PRO BREAST RECONSTRUCTION W/LATSMS D/SI FLAP WO PRSTHC IMPL Bilateral 12/12/2017 @BREAST RECONSTRUCTION W/ LAT DORSI FLAP,W/O IMPLANT, SUSAN (WRVU 23.36) performed by Andre Gimenez MD at [facility] OR ? ? PRO DEBRIDEMENT SUBCUTANEOUS TISSUE 20 SQCM/< 06/22/2017 DEBRIDEMENT SKIN AND SUBCU, BREAST (WRVU 1.01) performed by Andre Gimenez MD at [facility] OR ??? PRO EXPLORE PARATHYROID GLANDS N/A 11/02/2015 PARATHYROIDECTOMY OR EXPLORATION OF PARATHYROID(S) performed by Valentina Lucas MD at [facility] OR ? ? PRO FULL THICK GRFT TRUNK <20 SQCM Bilateral 04/26/2017 FTSG, FREE, DIR CLOSE DONOR SITE, TRUNK, 20 SQ CM OR LESS (WRVU 9.15) performed by Andre Gimenez MD at [facility] OR ??? PRO INCISION OF LYMPH CHANNELS Left 10/18/2018 INCISION & DRAINAGE LYMPHOCELE (WRVU 6.81) performed by Andre Gimenez MD at [facility] OR ??? PRO IV INJ TO TEST BLOOD FLOW IN FLAP/GRAFT Left 10/18/2018 IV INJECTION, AGENT TO TEST VASC FLOW IN FLAP OR GRAFT, ENT (WRVU 1.95) performed by Andre Gimenez MD at [facility] OR ??? PRO MASTECTOMY, SIMPLE, COMPLETE Bilateral 04/26/2017 MASTECTOMY, SIMPLE, COMPLETE-SUSAN (WRVU 15.85) performed by Jolie Menendez MD at [facility] OR ??? PRO PARTIAL REMOVAL OF RIB Bilateral 04/26/2017 EXCISION OF RIB, PARTIAL (WRVU 7.26) performed by Andre Gimenez MD at [facility] OR ??? PRO REMOVE ARMPITS LYMPH NODES COMPLT Left 04/26/2017 LYMPHADENECTOMY, AXILLARY, COMPLETE (WRVU 13.87) performed by Jolie Menendez MD at [facility] OR ??? PRO REPLACE TISSUE SERVOMECHANISM ASSEMBLER Bilateral 12/12/2017 TISSUE SERVOMECHANISM ASSEMBLER REPLACEMENT, WITH PERMANENT PROSTHESIS, SUSAN (WRVU 8.01) performed by Andre Gimenez MD at [facility] OR ??? PRO REVISION RECONSTRUCTED BREAST Left 06/22/2017 REVISION OF RECONSTRUCTED BREAST (WRVU 10.41) performed by Andre Gimenez MD at [facility] OR ??? PRO REVISION RECONSTRUCTED BREAST Bilateral 12/12/2017 REVISION OFRECONSTRUCTED BREAST, SUSAN (WRVU 10.41) performed by Andre Gimenez MD at [facility] OR ??? PRO THYMECTOMY, TRANSCERVICAL N/A 11/02/2015 THYMECTOMY, TRANSCERVICAL APPROACH performed by Valentina Lucas MD at [facility] OR ??? SHOULDER SURGERY Left [...] Zackery Dawson MD, MPH Section of Nephrology #[id number] documented in this encounter Plan of Treatment Upcoming Encounters Date Type Department Care Team (Late st Contact Info) Description 01/22/2024 10:30 AM EST Appointment Mammography/DXA at [place] [phone] Ladi Mendosa MD [facility] DR HEMATOLOG[place] [address] 01/30/2024 11:30 AM EST Office Visit Dermatology at [facility] [address] [place] [address] Nilda Luis MD [facility] [place] [address] 02/14/2024 7:30 AM EST Appointment Radiology at [place] [phone] Joanna Watts MD [facility] [place] [address] documented as of this encounter Visit Diagnoses Diagnosis Hypertension, unspecified type Aldosteronism Hyperaldosteronism, unspecified documented in this encounter Care Teams Maid Cleaning Cooking Relationship Specialty Start Date End Date Trinh Coates MD [facility] [address] [facility] [address] [place] [address] PCP - General 01/11/10 documented as of this encounter
--- OUTSIDE RECORDS SUMMARY | 2023-09-25 11:43 | XMS_ITS | Encounter Summary ---
Author Organization [facility] Address [facility] [place] [address] Care Team Providers Care Morgue Keeper Name Role Phone Trinh Coates MD Primary Care Provider [phone] Encounter Details Date Type Department Care Team [...] 01/22/2024 10:30 AM EST Appointment Mammography/[place] [address] Ladi Mendosa MD [facility] [address] HEMATOLOGY [place] [address] 01/30/2024 11:30 AM EST Office Visit Dermatology at [facility] [address] [place] [phone] Nilda Luis MD [facility] [place] [address] 02/14/2024 7:30 AM EST [place] [address] Joanna Watts MD [facility] [place] [address] documented as of this encounter Visit Diagnoses Not on filedocumented in this encounter Care Teams Morgue Keeper Relationship Specialty Start Date End Date Trinh Coates MD [facility] [address] [address] PCP - General 01/11/10 documented as of this encounter
--- OUTSIDE RECORDS SUMMARY | 2023-09-25 11:43 | XMS_ITS | Encounter Summary ---
Author Organization [facility] [address] Care Team Providers Care Clinical Research Scientist Name Role Phone Trinh Coates MD Primary Care Provider [phone] Encounter Details Date Type Department Care Team (Late st Contact Info) Description 02/22/2022 Telephone [place] [address] Tahira Gray Social History Tobacco [...] 01/22/2024 10:30 AM EST Appointment Mammography/[place] [address] Ladi Mendosa MD [facility] [address] [place] [address] 01/30/2024 11:30 AM EST Office Visit Dermatology at [facility] [address] [place] [address] Nilda Luis MD [facility] [place] [address] 02/14/2024 7:30 AM EST [place] [address] Joanna Watts MD [facility] [place] [address] documented as of this encounter Visit Diagnoses Not on filedocumented in this encounter Care Teams Clinical Research Scientist Relationship Specialty Start Date End Date Trinh Coates MD [facility] [address] [facility] [address] [place] [address] PCP - General 01/11/10 documented as of this encounter
--- OUTSIDE RECORDS SUMMARY | 2023-09-25 11:43 | XMS_ITS | Encounter Summary ---
Author Organization [facility] Address [facility] [place] [address] Care Team Providers Care Security Tech Name Role Phone Trinh Coates MD Primary Care Provider [phone] Encounter Details Date Type Department Care Team [...] 01/22/2024 10:30 AM EST Appointment Mammography/[place] [address] Ladi Mendosa MD [facility] [address] [place] [address] 01/30/2024 11:30 AM EST Office Visit Dermatology at [facility] [address] [place] [phone] Nilda Luis MD [facility] [place] [address] 02/14/2024 7:30 AM EST Appointment [place] [address] Joanna Watts MD [facility] [place] [address] documented as of this encounter Visit Diagnoses Not on filedocumented in this encounter Care Teams Security Tech Relationship Specialty Start Date End Date Trinh Coates MD [facility] [place] [address] [address] PCP - General 01/11/10 documented as of this encounter
--- OUTSIDE RECORDS SUMMARY | 2023-09-25 11:43 | XMS_ITS | Encounter Summary ---
Author Organization [facility] [place] [address] Care Team Providers Care Co Director Name Role Phone Trinh Coates MD Primary Care Provider [phone] Reason for Visit * Reason Onset Date Comments Medication Refill 10/13/2021 Encounter Details Date Type Department Care Team (Late st Contact Info) Description 10/13/2021 Refill Hematology [place] [phone] Arpita Ordonez RN Malignant neoplasm of upper-outer [...] us. Please call and discuss with her [phone] Received request via [employer] for refill of exemestane. Per review of [...] 01/22/2024 10:30 AM EST Appointment Mammography/DXA at [place] [phone] Ladi Mendosa MD [facility] [place] [address] 01/30/2024 11:30 AM EST Office Visit Dermatology at [address] [address] Nilda Luis MD [facility] [place] [address] 02/14/2024 7:30 AM EST [place] [phone] Joanna Watts MD [facility] [place] [address] documented as of this encounter Visit Diagnoses Diagnosis Malignant neoplasm of upper-outer quadrant of left breast in female, estrogen receptor positive documented in this encounter Care Teams Co Director Relationship Specialty Start Date End Date Trinh Coates MD [facility] [place] [address] PCP - General 01/11/10 documented as of this encounter
--- OUTSIDE RECORDS SUMMARY | 2023-09-25 11:43 | XMS_ITS | Encounter Summary ---
Author Organization [facility] Address [facility] [place] [address] Care Team Providers Care Business Analytics Intern Name Role Phone Trinh Coates MD Primary Care Provider [phone] Reason for Visit * Consultation (Routine) - Closed Specialty Diagnoses / Procedures Referred By Diamante marin Referred To Contact Dermatology Diagnoses Disorder of the skin and subcutaneous tissue, unspecified Lesion - on face Trinh Coates MD [facility] [address] [place] [address] [facility] Dermatology [address] [place] [address] Referral ID Status Reason Start Date Expiration Date V isits Requested Visits Authorized [id number] Closed Consult, [facility] PCP Updated and/or Approved 01/31/2021 01/31/2022 6 6 Encounter Details Date Type Department Care Team (Late st Contact Info) Description 05/10/2021 10:00 AM EDT Office Visit Dermatology at [facility] [address] [place] [address] [facility] [place] [address] Psoriasis; Actinic keratoses; Milia; Sebaceous [...] 1 year for FSE []Note routed to clerk secretary [x]Recall placed in scheduling system []Appointment scheduled at checkout Scribe attestation: RANDY Vaughn has performed the documentation for this encounter in the presence of and acting as a scribe for JAY LUIS MD. I performed the above scribed service and agree with the accuracy of the documentation in this encounter. Reviewed and signed by: JAY LUIS MD Dermatology [facility] * Jay Luis MD - 05/10/2021 10:00 AM EDT Just a note to let you know I reviewed your recent labs, and it is OK to continue the Kami. Jay Luis documented in this encounter Plan of Treatment Upcoming Encounters Date Type Department Care Team (Late st Contact Info) Description 01/22/2024 10:30 AM EST Appointment Mammography/[place] [phone] [facility] HEMATOLOGY [place] [address] 01/30/2024 11:30 AM EST Office Visit Dermatology at [address] [address] [facility] [place] [address] 02/14/2024 7:30 AM EST [place] [phone] [facility] [place] [address] documented as of this encounter Procedures Procedure Name Priority Date/Time Associated Diagnosis Comments HC VENIPUNCTURE Routine 05/10/2021 10:45 AM EDT High risk medication use HEMOGRAM Routine 05/10/2021 10:45 AM EDT High risk medication use DIFFERENTIAL, AUTOMATED Routine 05/10/2021 10:45 AM EDT High risk medication use HC CBC,PLT & AUTO DIFF Routine 10:45 AM EDT High risk medication use COMPREHENSIVE METABOLIC PANEL Routine 05/10/2021 10:45 AM EDT High risk medication use documented in this encounter Results * (ABNORMAL) Differential, Automated (05/10/2021 10:45 AM EDT) Neutrophil % 63.6 % [facility] Neutrophil Absolute 5.56 1.70 - 6.10 x10(3)/mc L [facility] Lymph % 18.2 % [facility] Lymphocytes Abs 1.6 0.9 - 3.2 x10(3)/mc L [facility] Monocyte % 11.3 % [facility] Monocyte Abs 1.0(H) 0.3 - 0.9 x10(3)/mc L [facility] Eos % 4.7 % [facility] Eosinophils Abs 0.4 0.0 - 0.4 x10(3)/mc L [facility] Basophil % 1.7 % [facility] Baso Absolute 0.2(H) 0.0 - 0.1 x10(3)/mc L [facility] Immature Gran % 0.50 % [facility] Comment: Immature granulocytes(IG's)percentage and absolute count will include metamyelocytes, myelocytes, and promyelocytes. Blood smears from CBCs yielding IG's will be scanned manually for concordance. If this scan disagrees with the automated IG or if promyelocytes are noted, a manual differential will be performed. Immature Gran Absolute 0.04 0.00 - 0.04 x10(3)/mc L [facility] Blood 05/10/2021 10:4 5 AM EDT 05/10/2021 1:04 PM EDT Narrative Resulting Agency Comment Spec In Lab Jay Luis MD HEMATOLOGY ORDERABL ES [facility] [place] [address] * (ABNORMAL) Hemogram (05/10/2021 10:45 AM EDT) [facility] White Blood Cell 8.7 4.0 - 9.5 x10(3)/ L [facility] Red Blood Cell 4.54 4.00 - 5.21 x10(6)/[facility] Hemoglobin 14.0 11.7 - 15.5 g/dL [facility] Hematocrit 42.9 35.7 - 45.8 % [facility] Mean Cell Volume 94.5(H) 82.6 - 94.4 fL [facility] Mean Cell Hemoglobin 30.8 27.1 - 32.0 pg [facility] Mean Cell Hemoglobin Concentration 32.6 31.7 - 35.0 g/dL [facility] Platelet 318 145 - 357 x10(3)/[facility] RDW Standard Deviation 47.3(H) 37.0 - 46.0 [facility] RDW coefficient of variation 13.6 11.5 - 14.1 % [facility] Mean Platelet Volume 9.9 7.6 - 12.9 [facility] NRBC% auto 0.0 % [facility] NRBC Absolute 0.000 0.000 - 0.000 x10(3)/[facility] Blood 05/10/2021 10:4 5 AM EDT 05/10/2021 1:04 PM EDT Narrative Resulting Agency Comment Spec In Lab Jay Luis MD HEMATOLOGY ORDERABL ES [facility] [place] [address] * QuantiFERON-TB Gold (05/10/2021 10:45 AM EDT) [facility] Quantiferon Nil 0.037 IU/mL [facility] QFT TB Ag1-Nil 0.010 IU/mL [facility] QFT TB Ag2-Nil 0.021 IU/mL [facility] Quantiferon Mitogen-Nil 9.963 IU/mL [facility] Quantiferon-TB Gold Negative Negative [facility] Quantiferon Tb Interp M. tuberculosis [...] immune function, or other immunological factors. [facility] Blood 05/10/2021 10:4 5 AM EDT 05/12/2021 6:45 AM EDT Narrative Resulting Agency Comment Spec In Lab aJy Luis MD CHEMISTRY ORDERABLE S [facility] [place] [address] * (ABNORMAL) Comprehensive metabolic panel (non-fasting) (05/10/2021 10:45 AM EDT) Pathologist [facility] Glucose 90 65 - 199 mg/dL [facility] Comment:Diabetes: >=200 mg/d L plus symptoms Blood Urea Nitrogen 27(H) 8 - 18 mg/dL [facility] Creatinine 1.47(H) 0.70 - 1.20 mg/dL [facility] Sodium 139 135 - 145 mmol/L [facility] Potassium 4.3 3.5 - 5.0 mmol/L [facility] Comment: Please note: ??Patients with WBC >100,000 may have falsely elevated Potassium levels. ??For accurate Potassium quantification in these patients send serum separator tube (gold top) for subsequent determinations. ??Contact the Clinical Chemistry Laboratory if there are any questions. Chloride 108(H) 98 - 107 mmol/L [facility] Carbon Dioxide 23 22 - 31 mmol/L [facility] Anion Gap 8 5 - 15 mmol/L [facility] Calcium 9.1 8.5 - 10.5 mg/dL [facility] Protein, Total 6.8 6.1 - 8.0 g/dL [facility] Albumin 4.2 3.2 - 5.2 g/dL [facility] Aspartate Aminotransferase 15 0 - 30 unit/L [facility] Alanine Aminotransferase 17 0 - 30 unit/L [facility] Alkaline Phosphatase 116(H) 35 - 105 unit/L [facility] Bilirubin, Total 0.4 0.2 - 1.3 mg/dL [facility] Est Glomerular Filtration Rate 39(L) >=60 mL/min/1. 73 m?? [facility] Comment: This patient? s estimated glomerular [...] Lab Jay Luis MD CHEMISTRY ORDERABLE S [facility] [place] [address] documented in this encounter Visit Diagnoses Diagnosis Psoriasis Other psoriasis Actinic keratoses Actinic keratosis Milia Sebaceous cyst Sebaceous hyperplasia Other specified disease of sebaceous glands High risk medication use Encounter for long-term (current) use of other medications documented in this encounter Care Teams Business Analytics Intern Relationship Specialty Start Date End Date Trinh Coates MD [address] [place] [address] PCP - General 01/11/10 documented as of this encounter
--- OUTSIDE RECORDS SUMMARY | 2023-09-25 11:43 | XMS_ITS | Encounter Summary ---
Author Organization [facility] Address [facility] [place] [address] Care Team Providers Care Licensed Physical Therapist Assistant Name Role Phone Trinh Coates MD Primary Care Provider [phone] Reason for Visit * Reason Comments Follow-up Encounter Details Date Type Department Care Team (Late st Contact Info) Description 10/07/2020 1:15 PM EDT Office Visit Hematology [place] [address] Josias Barnett MD [facility] [place]ATOLOG[place] [address] Shruthi Carlson MD [facility] HEMATOLOGY/[place] [address] Malignant neoplasm of upper-outer quadrant of left [...] in March 2017. 2.0 cm cancer, high-grade. ER/WY +++, HER-2/pat negative, 4/18 nodes (1/18 additional [...] BRCA1, BRCA2, BRIP1, CDH1, CDKN2A (p14ARF), CDKN2A (x10AKN5c), CHEK2, CTNNA1, DICER1, EPCAM (EPCAM: Deletion/duplication testing only ([id number]), GREM1 (GREM1: Promoter region deletion/duplication testing only.), KIT, MEN1, MLH1, MSH2, MSH3, MSH6, MUTYH, NBN, NF1, PALB2, PDGFRA, PMS2, POLD1, POLE, PTEN, RAD50, RAD51C, RAD51D, SDHB, SDHC, SDHD, SMAD4, SMARCA4, STK11, TP53, TSC1, TSC 2, VHL. The following genes were evaluated for sequence changes only: HOXB13 (c.251G>A, p.Lyp29Ieb variant only), NTHL1 (NTHL1: Deletion/duplication analysis is not offered for this gene ([id number]), and SDHA. A variant of uncertain significance in the AMAURY gene, specifically c.5727G>A (p.[id number]), was detected. Interval Hx/ROS: Prior switching between [...] this didn't get better (will be seeing pet care associate). Reports no new problems with frequent headaches, double vision, cough, SOB at rest, bleeding, chronic heartburn or diarrhea. ROS otherwise neg. Exam No exam Assessment and Plan: 55 yo woman diagnosed in Mar 2017 with a high-grade, node-positive left breast cancer ER+/WY+/HER2-. She is s/p bilateral mastectomy, completed adjuvant [...] Total time of visit, with >50% in geyu-nt-fssd counselin min. RTC 3 mo. documented in this encounter Plan of Treatment Upcoming Encounters Date Type Department Care Team (Late st Contact Info) Description 01/22/2024 10:30 AM EST Appointment Mammography/DXA at [place] [phone] Ladi Mendosa MD [facility] [place] [address] 01/30/2024 11:30 AM EST Office Visit Dermatology at [address] [phone] Nilda Luis MD [facility] [place] [address] 02/14/2024 7:30 AM EST [place] [address] Joanna Watts MD [facility] [place] [address] documented as of this encounter Visit Diagnoses Diagnosis Malignant neoplasm of upper-outer quadrant of left breast in female, estrogen receptor positive documented in this encounter Care Teams Licensed Physical Therapist Assistant Relationship Specialty Start Date End Date Trinh Coates MD [address] [place] [address] PCP - General 01/11/10 documented as of this encounter
--- OUTSIDE RECORDS SUMMARY | 2023-09-25 11:43 | XMS_ITS | Encounter Summary ---
Author Organization [facility] Address [facility] [place] [address] Care Team Providers Care Circuit Breaker Supervisor Name Role Phone Trinh Coates MD Primary Care Provider [phone] Reason for Referral * Diagnostic Test (Routine) - Closed Specialty Diagnoses / Procedures Referred By Contac t Referred To Contact Radiology Diagnoses Malignant neoplasm of upper-outer quadrant of left breast in female, estrogen receptor positive Procedures DXA Central Spine, Hip, and/or Whole Body (Generic) Piter Barnett MD [facility] HEMATOLOGY/[place] [address] [facility] [address] [place] [address] [place] [address] Referral ID Status Reason Start Date Expiration Date V isits Requested Visits Authorized [id number] Closed Specialty Service Requested 02/24/2021 08/24/2022 1 1 Reason for Visit * Diagnostic Test (Routine) - Closed Specialty Diagnoses / Procedures Referred By Contac t Referred To Contact Radiology Diagnoses Malignant neoplasm of upper-outer quadrant of left breast in female, estrogen receptor positive Procedures DXA Central Spine, Hip, and/or Whole Body (Generic) Piter Barnett MD [facility] HEMATOLOGY/[place] [address] [facility] [address] [place] [address] [place] [address] Referral ID Status Reason Start Date Expiration Date V isits Requested Visits Authorized [id number] Closed Specialty Service Requested 02/24/2021 08/24/2022 1 1 Encounter Details Date Type Department Care Team (Latest Contact Info) Description 11/15/2021 10:04 AM EDT - 11/15/2021 11:59 PM EDT Hospital Encounter Mammography/DXA at [facility], [place], operated [facility] [place] [address] Piter Barnett MD [facility] HEMATOLOGY/[place] [address] Malignant neoplasm of upper-outer quadrant of left [...] 01/22/2024 10:30 AM EST Appointment Mammography[place] [address] Ladi Mendosa MD [facility] [place] [address] 01/30/2024 11:30 AM EST Office Visit [facility] at [facility] [address] [place] [address] Nilda Luis MD [facility] [place] [address] 02/14/2024 7:30 AM EST Appointment Radiology at [facility], [place], [facility] [place] [address] Joanna Watts MD [facility] [place] [address] documented as of this encounter Procedures Procedure [...] BMD measurements and plots are available in ERep under the imaging tab. Paper copies will be sent to providers without ERep access. If you have received this report without the data sheet and do not have access to Mailcloud, please contact Radiology Senior Cyber Intelligence Analyst at [phone] Sunday thru Sunday 8am-4pm. ? Bone Density Report ? Name: ?Wendy Sandoval Age: ? 56 Sex: ? Female Ethnicity: ? White Date of : 1965 Referring Provider: PITER BARNETT Study: Bone densitometry was performed. Exam Date: November 15, 2021 Accession number: [id number] Bone Density: Region ?BMD ?T-score ??Z-score ? [...] who have questions please contact the health adult daycare coordinator that requested your imaging first. ? Electronically signed by: Ophelia Carver MD, [facility] ([phone]), at 11/15/2021 1:36 PM Narrative 11/15/2021 1:36 PM EDT EXAMINATION: DXA CENTRAL SPINE, HIP, AND/OR WHOLE BODY (GENERIC) CLINICAL HISTORY: ??56 years Female Aromatase inhibitor therapy for BrCa (as entered by ordering provider) TECHNIQUE: Scans were acquired at the lumbar spine, distal right forearm and left hip using the Pearltrees A system. FINDINGS: Femoral neck BMD: 0.723 g/cm2 Lowest T-score at the diagnostic region of interest: T-score: -1.1, BUSHRA: Femoral neck, WHO diagnosis: osteopenia. ......... Comparison......... Baseline scan:January 29, 2019 Total spine: Compared to the baseline, 0.033 g/cm2 (3 %) increase. At [facility], least significant change for bone mineral density measurements at the spine region of interest: 0.031 g/cm2 Total hip: Compared to the baseline, -0.042 g/cm2 (5 %) decrease. At [facility], least significant change for bone mineral [...] distal right forearmand left hip using the Pearltrees A system. FINDINGS: Femoral neck BMD: 0.723 g/cm2 Lowest T-score at the diagnostic region of interest: T-score: -1.1, BUSHRA: Femoral neck, WHO diagnosis: osteopenia. ......... Comparison......... Baseline scan:January 29, 2019 Total spine: Compared to the baseline, 0.033 g/cm2 (3 %) increase. At [facility], least significant change for bonemineral density measurements at the spine region of interest: 0.031 g/cm2 Total hip: Compared to the baseline, -0.042 g/cm2 (5 %) decrease. At [facility], least significant change for bonemineral density [...] BMD measurements and plots are available in ERepunder the imaging tab. Paper copies will be sent to providers without Mailcloud access.If you have received this report without the data sheet and do not haveaccess to ERep, please contact Radiology Senior Cyber Intelligence Analyst at [phone] Sunday thrrid 8am-4pm. Bone Density Report Name: Wendy Sandoval Age: 56 Sex: Female Ethnicity: White Date of : 1965 Referring Provider: PITER BARNETT Study: Bone densitometry was performed. Exam Date: November 15, 2021 Accession number: [id number] Bone Density: Region BMD T-score Z-score AP [...] patients who have questions please contactthe health adult daycare coordinator that requested your imaging first. Piter Barnett MD IMG DEXA ORDERABLES documented in this encounter Visit Diagnoses Diagnosis Malignant neoplasm of upper-outer quadrant of left breast in female, estrogen receptor positive documented in this encounter Care Teams Circuit Breaker Supervisor Relationship Specialty Start Date End Date Trinh Coates MD [facility] [address] [facility] [address] [place] [address] PCP - General 01/11/10 documented as of this encounter
--- OUTSIDE RECORDS SUMMARY | 2023-09-25 11:43 | XMS_ITS | Encounter Summary ---
Author Organization [facility] Address [facility] [place] [address] Care Team Providers Care Tie Layer Name Role Phone Trinh Coates MD Primary Care Provider [phone] Reason for Visit * Reason Onset Date Comments Medication Refill 05/18/2020 Encounter Details Date Type Department Care Team (Late st Contact Info) Description 05/18/2020 Refill Dermatology at [facility] [address] [place] [address] Nilda Luis MD [facility] [place] [address] Psoriasis Social History Tobacco Use Types Packs/Day [...] AM EST Appointment Mammography[place] [address] Ladi Mendosa MD [facility] [place]ATOLOGY [place] [address] 01/30/2024 11:30 AM EST Office Visit Dermatology at [place] [address] [place] [address] Nlida Luis MD [facility] [place] [address] 02/14/2024 7:30 AM EST Appointment Radiology at [place] [phone] Joanna Watts MD [facility] [place] [address] documented as of this encounter Visit Diagnoses Diagnosis Psoriasis Other psoriasis documented in this encounter Care Teams Tie Layer Relationship Specialty Start Date End Date Trinh Coates MD [facility] [address] [place] [address] PCP - General 01/11/10 documented as of this encounter
--- OUTSIDE RECORDS SUMMARY | 2023-09-25 11:43 | XMS_ITS | Encounter Summary ---
Author Organization [facility] Address [facility] [place] [address] Care Team Providers Care Trial Management Associate Name Role Phone Trinh Coates MD Primary Care Provider [phone] Reason for Visit * Reason Onset Date Comments Medication Refill 03/02/2021 Encounter Details Date Type Department Care Team (Late st Contact Info) Description 03/02/2021 Refill Dermatology at [facility] [address] [place] [address] Nilda Luis MD [facility] [place] [address] Psoriasis Social History Tobacco Use Types Packs/Day [...] 01/22/2024 10:30 AM EST Appointment Mammography/[place] [address] Ladi Mendosa MD [facility] HEMATOLOGY [place] [address] 01/30/2024 11:30 AM EST Office Visit Dermatology at [address] [place] [address] Nilda Luis MD [facility] [place] [address] 02/14/2024 7:30 AM EST [place] [address] Joanna Watts MD [facility] [place] [address] documented as of this encounter Visit Diagnoses Diagnosis Psoriasis Other psoriasis documented in this encounter Care Teams Trial Management Associate Relationship Specialty Start Date End Date Trinh Coates MD [facility] [address] [place] [address] PCP - General 01/11/10 documented as of this encounter
--- OUTSIDE RECORDS SUMMARY | 2023-09-25 11:43 | XMS_ITS | Encounter Summary ---
Author Organization [facility] Address [facility] [place] [address] Care Team Providers Care Heel Cover Splitter Name Role Phone Trinh Coates MD Primary Care Provider [phone] Encounter Details Date Type Department Care Team [...] 01/22/2024 10:30 AM EST Appointment Mammography[place] [address] Ladi Mendosa MD [facility] DR HEMATOLOGY [place] [address] 01/30/2024 11:30 AM EST Office Visit Dermatology at [facility] [address] [place] [address] Nilda Luis MD [facility] [place] [address] 02/14/2024 7:30 AM EST [place] [address] Joanna Watts MD [facility] [place] [address] documented as of this encounter Visit Diagnoses Not on filedocumented in this encounter Care Teams Heel Cover Splitter Relationship Specialty Start Date End Date Trinh Coates MD [facility] [address] [place] [address] PCP - General 01/11/10 documented as of this encounter
--- OUTSIDE RECORDS SUMMARY | 2023-09-25 11:43 | XMS_ITS | Encounter Summary ---
Author Organization [facility] Address [facility] [place] [address] Care Team Providers Care In Store Banker Name Role Phone Trinh Coates MD Primary Care Provider [phone] Encounter Details Date Type Department Care Team (Latest Contact Info) Description 04/28/2022 3:00 PM EST TH Visit (TeleHealth) [place] [address] Zackery Dawson MD [facility] [place] [address] Stage 3 chronic kidney disease, unspecified whether [...] Check/Change/Remove 11/20/2017 Marcos Dey MD [facility] INTERVENTIONL RAD ??? IR MEDIPORT REMOVAL 01/25/2018 IR Mediport Removal 01/25/2018 Scooby Muñoz APRN [facility] INTERVENTIONL RAD ??? PRG EMG, LARYNX N/A 11/02/2015 FACIAL NERVE MONITORING, SETUP LARYNGEAL performed by Valentina Lucas MD at [facility] MAIN OR ??? PRO BREAST RECONSTRUCTION IMMT/DLYD W/TISS ENROLLMENT SPECIALIST SBSQ EXPANSION Bilateral 04/26/2017 BREAST RECONSTRUCTION, IMMEDIATE OR DELAYED, W/ TISSUE ENROLLMENT SPECIALIST, INCLUDING SUBSEQUENT EXPANSION (WRVU 18.5) performed by Andre Gimenez MD at [facility] OR ??? PRO BREAST RECONSTRUCTION W FREE FLAP Bilateral 04/26/2017 @BREAST RECONSTRUCTION W/ FREE FLAP, SUSAN (WRVU 42.58) performed [facility] ??? PRO BREAST RECONSTRUCTION W/LATSMS D/SI FLAP WO PRSTHC IMPL Bilateral 12/12/2017 @BREAST RECONSTRUCTION W/ LAT DORSI FLAP,W/O IMPLANT, SUSAN (WRVU 23.36) performed by Andre Gimenez MD at [facility] OR ? ? PRO DEBRIDEMENT SUBCUTANEOUS TISSUE 20 SQCM/< 06/22/2017 DEBRIDEMENT SKIN AND SUBCU, BREAST (WRVU 1.01) performed by Andre Gimenez MD at [facility] OR ??? PRO EXPLORE PARATHYROID GLANDS N/A 11/02/2015 PARATHYROIDECTOMY OR EXPLORATION OF PARATHYROID(S) performed by Valentina Lucas MD at [facility] OR ? ? PRO FULL THICK GRFT TRUNK <20 SQCM Bilateral 04/26/2017 FTSG, FREE, DIR CLOSE DONOR SITE, TRUNK, 20 SQ CM OR LESS (WRVU 9.15) performed by Andre Gimenez MD at [facility] OR ??? PRO INCISION OF LYMPH CHANNELS Left 10/18/2018 INCISION & DRAINAGE LYMPHOCELE (WRVU 6.81) performed by Andre Gimenez MD at [facility] OR ??? PRO IV INJ TO TEST BLOOD FLOW IN FLAP/GRAFT Left 10/18/2018 IV INJECTION, AGENT TO TEST VASC FLOW IN FLAP OR GRAFT, ENT (WRVU 1.95) performed by Andre Gimenez MD at [facility] OR ??? PRO MASTECTOMY, SIMPLE, COMPLETE Bilateral 04/26/2017 MASTECTOMY, SIMPLE, COMPLETE-SUSAN (WRVU 15.85) performed by Jolie Menendez MD at [facility] OR ??? PRO PARTIAL REMOVAL OF RIB Bilateral 04/26/2017 EXCISION OF RIB, PARTIAL (WRVU 7.26) performed by Andre Gimenez MD at [facility] MAIN OR ??? PRO REMOVE ARMPITS LYMPH NODES COMPLT Left 04/26/2017 LYMPHADENECTOMY, AXILLARY, COMPLETE (WRVU 13.87) performed by Jolie Menendez MD at [facility] MAIN OR ??? PRO REPLACE TISSUE ENROLLMENT SPECIALIST Bilateral 12/12/2017 TISSUE ENROLLMENT SPECIALIST REPLACEMENT, WITH PERMANENT PROSTHESIS, SUSAN (WRVU 8.01) performed by Andre Gimenez MD at [facility] MAIN OR ??? PRO REVISION RECONSTRUCTED BREAST Left 06/22/2017 REVISION OF RECONSTRUCTED BREAST (WRVU 10.41) performed by Andre Gimenez MD at [facility] MAIN OR ??? PRO REVISION RECONSTRUCTED BREAST Bilateral 12/12/2017 REVISION OFRECONSTRUCTED BREAST, SUSAN (WRVU 10.41) performed by Andre Gimenez MD at [facility] MAIN OR ??? PRO THYMECTOMY, TRANSCERVICAL N/A 11/02/2015 THYMECTOMY, TRANSCERVICAL APPROACH performed by Valentina Lucas MD at [facility] MAIN OR ??? SHOULDER SURGERY Left ??? [...] spent on encounter greater than 50% direct benefits counselor with patient Zackery Dawson MD, MPH Section of Nephrology #[id number] documented in this encounter Plan of Treatment Upcoming Encounters Date Type Department Care Team (Late st Contact Info) Description 01/22/2024 10:30 AM EST Appointment Mammography/[place] [phone] Ladi Mendosa MD [facility] [place]ATOLOGY [place] [address] 01/30/2024 11:30 AM EST Office Visit Dermatology at [address] [place] [address] Nilda Luis MD [facility] [place] [address] 02/14/2024 7:30 AM [place] [address] Joanna Watts MD [facility] [address] documented as of this encounter Visit Diagnoses Diagnosis Stage 3 chronic kidney disease, unspecified whether stage 3a or 3b CKD Hypertension, unspecified type documented in this encounter Care Teams In Store Banker Relationship Specialty Start Date End Date Trinh Coates MD [facility] [address] [place] [address] PCP - General 01/11/10 documented as of this encounter
--- OUTSIDE RECORDS SUMMARY | 2023-09-25 11:43 | XMS_ITS | Encounter Summary ---
Author Organization [facility] Address [facility] [place] [address] Care Team Providers Care Transfer Iron Operator Name Role Phone Trinh Coates MD Primary Care Provider [phone] Encounter Details Date Type Department Care Team (Late st Contact Info) Description 01/20/2021 1:00 PM EST Office Visit Radiation Oncology at [address] [address] Tahira Cardenas, CIGAR TOBACCO PROCESSING SUPERVISOR [facility] [place] [address] Hormone receptor positive malignant neoplasm [...] sparing mast . Arreaga and Arimedex switched [facility] [place] [address] Phone: RADIATION ONCOLOGY FOLLOW UP NOTE Date [...] for breast ca, L, IDC, gr 3, ER+MS+, 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 Adjuvant chemo then given, followed by non destructive evaluation technician exchange for implants. ?? She was taking [...] Dr. Gimenez. ?? 10/30/18 fu w/A. Azevedo, CIGAR TOBACCO PROCESSING SUPERVISOR Plastics, resume PT for lymphedema. ?? 07/09/19 [...] group in [facility]. ?? Subjective: Aches & pains [...] is going to have her physician in [place] to find out what is going on there she perhaps may send her son out to [place] to help figure out what is going on with her mother. Medications 10/08/20 0076 Medication Sig Taking? exemestane (Aromasin) 25 mg [...] MD [facility] INTERVENTIONL RAD ??? IR MEDIPORT REMOVAL 01/25/2018 IR Mediport Removal 01/25/2018 Scooby Muñoz APRN [facility] INTER[facility] RAD ??? PRG EMG, LARYNX N/A 11/02/2015 FACIAL NERVE MONITORING, SETUP LARYNGEAL performed by Valentina Lucas MD at [facility] MAIN OR ??? PRO BREAST RECONSTRUC W FREE FLAP Bilateral 04/26/2017 @BREAST RECONSTRUCTION W/ FREE FLAP, SUSAN (WRVU 42.58) performed by Andre Gimenez MD at [facility] ??? PRO BREAST RECONSTRUC W FREE FLAP, W/O IMPLANT Bilateral 12/12/2017 @BREAST RECONSTRUCTION W/ LAT DORSI FLAP,W/O IMPLANT, SUSAN (WRVU 23.36) performed by Andre Gimenez MD at [facility] OR ??? PRO BREAST RECONSTRUC W TISS EXPANDR Bilateral 04/26/2017 BREAST RECONSTRUCTION, IMMEDIATE OR DELAYED, W/ TISSUE SKY LINE YARDER, INCLUDING SUBSEQUENT EXPANSION (WRVU 18.5) performed by Andre Gimenez MD at [facility] OR ? ? PRO DEBRIDEMENT SUBCUTANEOUS TISSUE 20 SQCM/< 06/22/2017 DEBRIDEMENT SKIN AND SUBCU, BREAST (WRVU 1.01) performed by Andre Gimenez MD at [facility] OR ??? PRO EXPLORE PARATHYROID GLANDS N/A 11/02/2015 PARATHYROIDECTOMY OR EXPLORATION OF PARATHYROID(S) performed by Valentina Lucas MD at [facility] OR ? ? PRO FULL THICK GRFT TRUNK <20 SQCM Bilateral 04/26/2017 FTSG, FREE, DIR CLOSE DONOR SITE, TRUNK, 20 SQ CM OR LESS (WRVU 9.15) performed by Andre Gimenez MD at [facility] OR ??? PRO INCISION OF LYMPH CHANNELS Left 10/18/2018 INCISION & DRAINAGE LYMPHOCELE (WRVU 6.81) performed by Andre Gimenez MD at [facility] OR ??? PRO IV INJ TO TEST BLOOD FLOW IN FLAP/GRAFT Left 10/18/2018 IV INJECTION, AGENT TO TEST VASC FLOW IN FLAP OR GRAFT, ENT (WRVU 1.95) performed by Andre Gimenez MD at [facility] OR ??? PRO MASTECTOMY, SIMPLE, COMPLETE Bilateral 04/26/2017 MASTECTOMY, SIMPLE, COMPLETE-SUSAN (WRVU 15.85) performed by Jolie Menendez MD at [facility] OR ??? PRO PARTIAL REMOVAL OF RIB Bilateral 04/26/2017 EXCISION OF RIB, PARTIAL (WRVU 7.26) performed by Andre Gimenez MD at [facility] OR ??? PRO REMOVE ARMPITS LYMPH NODES COMPLT Left 04/26/2017 LYMPHADENECTOMY, AXILLARY, COMPLETE (WRVU 13.87) performed by Jolie Menendez MD at [facility] MAIN OR ??? PRO REPLACE TISSUE SKY LINE YARDER Bilateral 12/12/2017 TISSUE SKY LINE YARDER REPLACEMENT, WITH PERMANENT PROSTHESIS, SUSAN (WRVU 8.01) performed by Andre Gimenez MD at [facility] MAIN OR ??? PRO REVISION RECONSTRUCTED BREAST Left 06/22/2017 REVISION OF RECONSTRUCTED BREAST (WRVU 10.41) performed by Andre Gimenez MD at [facility] MAIN OR ??? PRO REVISION RECONSTRUCTED BREAST Bilateral 12/12/2017 REVISION OFRECONSTRUCTED BREAST, SUSAN (WRVU 10.41) performed by Andre Gimenez MD at [facility] OR ??? PRO THYMECTOMY, TRANSCERVICAL N/A 11/02/2015 THYMECTOMY, TRANSCERVICAL APPROACH performed by Valentina Lucas MD at [facility] MAIN OR ??? SHOULDER SURGERY Left ??? [...] recent diagnosis and need for treatment in [place] of great concern to her. She may send her son out to [place] to see how he may be of [...] no mammogram is scheduled. Tahira Cardenas MSN, CIGAR TOBACCO PROCESSING SUPERVISOR, CUT OFF MACHINE UNLOADER-C Nurse Practitioner Radiation Oncology documented in this encounter Plan of Treatment Upcoming Encounters Date Type Department Care Team (Late st Contact Info) Description 01/22/2024 10:30 AM EST Appointment Mammography/[place] [address] Ladi Mendosa MD [facility] [place] [address] 01/30/2024 11:30 AM EST Office Visit Dermatology at [facility] [address] [place] [address] Nilda Luis MD [facility] [place] [address] 02/14/2024 7:30 AM [place] [phone] Joanna Watts MD [facility] [place] [address] documented as of this encounter Visit Diagnoses Diagnosis Hormone receptor positive malignant neoplasm of left breast documented in this encounter Care Teams Transfer Iron Operator Relationship Specialty Start Date End Date Trinh Coates MD [address] [place] [address] PCP - General 01/11/10 documented as of this encounter
--- OUTSIDE RECORDS SUMMARY | 2023-09-25 11:43 | XMS_ITS | Encounter Summary ---
Author Organization [facility]ly [facility] Address [facility] [place] [address] Care Team Providers Care Gas Operations Superintendent Name Role Phone Trinh Coates MD Primary Care Provider [phone] Encounter Details Date Type Department Care Team (Latest Contact Info) Description 07/29/2020 11:15 AM EDT TH Visit (TeleHealth) [place] [address] Josias Barnett MD [facility] HEMATOLOGY/[place] [address] Malignant neoplasm of upper-outer quadrant of left [...] in March 2017. 2.0 cm cancer, high-grade. ER/NJ +++, HER-2/pat negative, 4/18 nodes (1/18 additional [...] mother's side. Oct 2017 Genetic testing: [employer]'s Common Hereditary Cancers Panel showed no mutation was detected. This means that Wendy does not carry a mutation in the genes detectable by this test. The following genes were evaluated for sequence changes and exonic deletions/duplications: APC, AMAURY, AXIN2, BARD1, BMPR1A, BRCA1, BRCA2, BRIP1, CDH1, CDKN2A (p14ARF), CDKN2A ([id number]), CHEK2, CTNNA1, DICER1, EPCAM (EPCAM: Deletion/duplication testing only (NM_002354.2), GREM1 (GREM1: Promoter region deletion/duplication testing only.), KIT, MEN1, MLH1, MSH2, MSH3, MSH6, MUTYH, NBN, NF1, PALB2, PDGFRA, PMS2, POLD1, POLE, PTEN, RAD50, RAD51C, RAD51D, SDHB, SDHC, SDHD, SMAD4, SMARCA4, STK11, TP53, TSC1, TSC 2, VHL. The following genes were evaluated for sequence changes only: HOXB13 (c.251G>A, p.Kvj66Raf variant only), NTHL1 (NTHL1: Deletion/duplication analysis is not offered for this gene (NM_002528.6), and SDHA. A variant of uncertain significance in the AMAURY gene, specifically c.5727G>A (p.[id number]), was detected. Interval Hx/ROS: Prior switching between [...] with a high-grade, node-positive left breast cancer ER+/NJ+/HER2-. She is s/p bilateral mastectomy, completed adjuvant [...] 01/22/2024 10:30 AM EST Appointment Mammography/[place] [address] Ladi Mendosa MD [facility] [place] [address] 01/30/2024 11:30 AM EST Office Visit Dermatology at [facility] [address] [place] [address] Nilda Luis MD [facility] [place] [address] 02/14/2024 7:30 AM EST [place] [address] Joanna Watts MD [facility] [place] [address] documented as of this encounter Visit Diagnoses Diagnosis Malignant neoplasm of upper-outer quadrant of left breast in female, estrogen receptor positive documented in this encounter Care Teams Gas Operations Superintendent Relationship Specialty Start Date End Date Trinh Coates MD [facility] [place] [address] [address] PCP - General 01/11/10 documented as of this encounter
--- OUTSIDE RECORDS SUMMARY | 2023-09-25 11:43 | XMS_ITS | Encounter Summary ---
Author Organization [facility] Address [facility] [place] [address] Care Team Providers Care Bread Jockey Name Role Phone Trinh Coates MD Primary Care Provider [phone] Encounter Details Date Type Department Care Team (Late st Contact Info) Description 11/15/2021 11:30 AM EDT Office Visit Hematology [place] [address] Ladi Mendosa MD [facility] [place] [address] Malignant neoplasm of upper-outer quadrant of left [...] in March 2017. 2.0 cm cancer, high-grade. ??ER/RI +++, HER-2/pat negative, 4/18 nodes (03/08 additional nodes with ITC). ??LVI negative. ?? [...] her mother's side. Oct 2017 Genetic testing: [employer]'s Common Hereditary Cancers Panel??showed no mutation was detected. ??This means that??Wendy??does??not carry a??mutation??in the genes??detectable by this test.?The following genes were evaluated for sequence changes and exonic deletions/duplications: APC, AMAURY, AXIN2, BARD1, BMPR1A, BRCA1, BRCA2, BRIP1, CDH1, CDKN2A (p14ARF), CDKN2A (y96PFU8w), CHEK2, CTNNA1, DICER1, EPCAM (EPCAM: Deletion/duplication testing only (NM_[id number]), GREM1 (GREM1: Promoter region deletion/duplication testing only.), KIT, MEN1, MLH1, MSH2, MSH3, MSH6, MUTYH, NBN, NF1, PALB2,PDGFRA, PMS2, POLD1, POLE, PTEN, RAD50, RAD51C, RAD51D, SDHB, SDHC, SDHD, SMAD4, SMARCA4, STK11, TP53, TSC1, TSC2, VHL. ??The following genes were evaluated for sequence changes only: HOXB13 (c.251G>A, p.Qvp51Ohk variant only), NTHL1 (NTHL1: Deletion/duplication analysis is not offered for this gene (NM_002528.6), and SDHA. ??A variant of uncertain significance in the AMAURY??gene, specifically c. 5727G>A (p.[id number]), was detected. ? Interval Hx/ROS: Prior switching [...] 01/22/2024 10:30 AM EST Appointment Mammography/[place] [address] Ladi Mendosa MD [facility] [place] [address] 01/30/2024 11:30 AM EST Office Visit Dermatology at [facility] [address] [place] [address] Nilda Luis MD [facility] [place] [address] 02/14/2024 7:30 AM EST Appoint[place] [phone] Joanna Watts MD [facility] [place] [address] documented as of this encounter Visit Diagnoses Diagnosis Malignant neoplasm of upper-outer quadrant of left breast in female, estrogen receptor positive documented in this encounter Care Teams Bread Jockey Relationship Specialty Start Date End Date Trinh Coates MD [facility] [place] [facility] [address] [place] [address] PCP - General 01/11/10 documented as of this encounter
--- OUTSIDE RECORDS SUMMARY | 2023-09-25 11:44 | XMS_ITS | Encounter Summary ---
Author Organization [facility] Address [facility] [place] [address] Care Team Providers Care Production Internship Name Role Phone Trinh Coates MD Primary Care Provider [phone] Reason for Visit * Reason Comments Radiation Follow-up Encounter Details Date Type Department Care Team (Late st Contact Info) Description 06/30/2019 2:30 PM EDT Office Visit Radiation Oncology at [address] [phone] Emily Choi MD [facility] [place] [address] Hormone receptor positive malignant neoplasm [...] schedule bone scan & CT chest @ [facility]. Cr blood level needs to be drawn [...] for breast ca, L, IDC, gr 3, ER+ID+, Her2 FISH neg, s/p B skin sparing mastectomies w/B free nipple grafts & L ax dissxn; immed B freeflap recon attempted but could not be done due to flap arterial spasms; expanders placed; pT1c pN2a. Adjuvant chemo then given, followed by forest fire control officer exchange for implants. She is taking anne, [...] IR Drain Check/Change/Remove 11/20/2017 Marcos Dey MD [facility] INTERVENTIONL RAD ??? IR MEDIPORT REMOVAL 01/25/2018 IR Mediport Removal 01/25/2018 Scooby Muñoz APRN [facility] INTERVENTIONL RAD ??? PRG EMG, LARYNX N/A 11/02/2015 FACIAL NERVE MONITORING, SETUP LARYNGEAL performed by Valentina Lucas MD at [facility] OR ??? PRO BREAST RECONSTRUC W FREE FLAP Bilateral 04/26/2017 @BREAST RECONSTRUCTION W/ FREE FLAP, SUSAN (WRVU 42.58) performed [facility] ??? PRO BREAST RECONSTRUC W FREE FLAP, W/O IMPLANT Bilateral 12/12/2017 @BREAST RECONSTRUCTION W/ LAT DORSI FLAP,W/O IMPLANT, SUSAN (WRVU 23.36) performed by Andre Gimenez MD at [facility] OR ??? PRO BREAST RECONSTRUC W TISS EXPANDR Bilateral 04/26/2017 BREAST RECONSTRUCTION, IMMEDIATE OR DELAYED, W/ TISSUE RIGGER APPRENTICE, INCLUDING SUBSEQUENT EXPANSION (WRVU 18.5) performed by Andre Gimenez MD at [facility] OR ? ? PRO DEBRIDEMENT SUBCUTANEOUS TISSUE 20 SQCM/< 06/22/2017 DEBRIDEMENT SKIN AND SUBCU, BREAST (WRVU 1.01) performed by Andre Gimenez MD at [facility] OR ??? PRO EXPLORE PARATHYROID GLANDS N/A 11/02/2015 PARATHYROIDECTOMY OR EXPLORATION OF PARATHYROID(S) performed by Valentina Lucas MD at [facility] OR ? ? PRO FULL THICK GRFT TRUNK <20 SQCM Bilateral 04/26/2017 FTSG, FREE, DIR CLOSE DONOR SITE, TRUNK, 20 SQ CM OR LESS (WRVU 9.15) performed by Andre Gimenez MD at [facility] OR ??? PRO INCISION OF LYMPH CHANNELS Left 10/18/2018 INCISION & DRAINAGE LYMPHOCELE (WRVU 6.81) performed by Andre Gimenez MD at [facility] OR ??? PRO IV INJ TO TEST BLOOD FLOW IN FLAP/GRAFT Left 10/18/2018 IV INJECTION, AGENT TO TEST VASC FLOW IN FLAP OR GRAFT, ENT (WRVU 1.95) performed by Andre Gimenez MD at [facility] OR ??? PRO MASTECTOMY, SIMPLE, COMPLETE Bilateral 04/26/2017 MASTECTOMY, SIMPLE, COMPLETE-SUSAN (WRVU 15.85) performed by Jolie Menendez MD at [facility] OR ??? PRO PARTIAL REMOVAL OF RIB Bilateral 04/26/2017 EXCISION OF RIB, PARTIAL (WRVU 7.26) performed by Andre Gimenez MD at [facility] OR ??? PRO REMOVE ARMPITS LYMPH NODES COMPLT Left 04/26/2017 LYMPHADENECTOMY, AXILLARY, COMPLETE (WRVU 13.87) performed by Jolie Menendez MD at [facility] OR ??? PRO REPLACE TISSUE RIGGER APPRENTICE Bilateral 12/12/2017 TISSUE RIGGER APPRENTICE REPLACEMENT, WITH PERMANENT PROSTHESIS, SUSAN (WRVU 8.01) performed by Andre Gimenez MD at [facility] OR ??? PRO REVISION RECONSTRUCTED BREAST Left 06/22/2017 REVISION OF RECONSTRUCTED BREAST (WRVU 10.41) performed by Andre Gimenez MD at [facility] OR ??? PRO REVISION RECONSTRUCTED BREAST Bilateral 12/12/2017 REVISION OFRECONSTRUCTED BREAST, SUSAN (WRVU 10.41) performed by Andre Gimenez MD at [facility] OR ??? PRO THYMECTOMY, TRANSCERVICAL N/A 11/02/2015 THYMECTOMY, TRANSCERVICAL APPROACH performed by Valentina Lucas MD at [facility] OR ??? SHOULDER SURGERY Left ??? 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
--- OUTSIDE RECORDS SUMMARY | 2023-09-25 11:44 | XMS_ITS | Encounter Summary ---
Author Organization Formerly [facility] [place] [address] Care Team Providers Care Coal Handler Name Role Phone Trinh Coates MD Primary Care Provider [phone] Reason for Visit * Consultation (Routine) - Closed Specialty Diagnoses / Procedures Referred By Diamante marin Referred To Contact Neurology Diagnoses Dysesthesia of scalp Anderson Zhou MD [facility] DR LIDIA [place] [address] [facility] [address] [place] [phone] Referral ID Status Reason Start Date Expiration Date V isits Requested Visits Authorized [id number] Closed Consult, Test & Treat 10/20/2019 10/19/2020 1 1 Encounter Details Date Type Department Care Team (Latest Contact Info) Description 01/13/2020 4:00 PM EST TH Visit (TeleHealth) [place] [address] Antwon Dowell MD [facility] [place] [address] Paresthesia of foot, bilateral (Primary [...] of left breast in female, estrogen receptor sklowugm53/10/2018 ??? Hyperparathyroidism 11/02/2015 ??? Obstructive sleep apnea (adult) (pediatric) 11/12/2014 ??? OA (osteoarthritis) 11/12/2014 ??? Overweight(278.02) 11/12/2014 ??? Hypertension 03/15/2013 ??? Depression 03/15/2013 Past Surgical History: Procedure Laterality Date ??? BREAST BIOPSY Right 11/01 ??? SECTION x 2 ??? HAND SURGERY Right ??? IR DRAIN CHECK/CHANGE/REMOVE 11/20/2017 IR Drain Check/Change/Remove 11/20/2017 Marcos Dey MD [facility] INTERVENTIONL RAD ??? IR MEDIPORT REMOVAL 01/25/2018 IR Mediport Removal 01/25/2018 Scooby Muñoz APRN [facility] INTERVENTIONL RAD ??? PRG EMG, LARYNX N/A 11/02/2015 FACIAL NERVE MONITORING, SETUP LARYNGEAL performed by Valentina Lucas MD at [facility] MAIN OR ??? PRO BREAST RECONSTRUC W FREE FLAP Bilateral 04/26/2017 @BREAST RECONSTRUCTION W/ FREE FLAP, SUSAN (WRVU 42.58) performed by Andre Gimenez MD at [facility] [place] ??? PRO BREAST RECONSTRUC W FREE FLAP, W/O IMPLANT Bilateral 12/12/2017 @BREAST RECONSTRUCTION W/ LAT DORSI FLAP,W/O IMPLANT, SUSAN (WRVU 23.36) performed by Andre Gimenez MD at [facility] MA[facility] OR ??? PRO BREAST RECONSTRUC W TISS EXPANDR Bilateral 04/26/2017 BREAST RECONSTRUCTION, IMMEDIATE OR DELAYED, W/ TISSUE TRAIN ATTENDANT, INCLUDING SUBSEQUENT EXPANSION (WRVU 18.5) performed by Andre Gimenez MD at [facility] OR ? ? PRO DEBRIDEMENT SUBCUTANEOUS TISSUE 20 SQCM/< 06/22/2017 DEBRIDEMENT SKIN AND SUBCU, BREAST (WRVU 1.01) performed by Andre Gimenez MD at [facility] OR ??? PRO EXPLORE PARATHYROID GLANDS N/A 11/02/2015 PARATHYROIDECTOMY OR EXPLORATION OF PARATHYROID(S) performed by Valentina Lucas MD at [facility] OR ? ? PRO FULL THICK GRFT TRUNK <20 SQCM Bilateral 04/26/2017 FTSG, FREE, DIR CLOSE DONOR SITE, TRUNK, 20 SQ CM OR LESS (WRVU 9.15) performed by Andre Gimenez MD at [facility] OR ??? PRO INCISION OF LYMPH CHANNELS Left 10/18/2018 INCISION & DRAINAGE LYMPHOCELE (WRVU 6.81) performed by Andre Gimenez MD at [facility] OR ??? PRO IV INJ TO TEST BLOOD FLOW IN FLAP/GRAFT Left 10/18/2018 IV INJECTION, AGENT TO TEST VASC FLOW IN FLAP OR GRAFT, ENT (WRVU 1.95) performed by Andre Gimenez MD at [facility] OR ??? PRO MASTECTOMY, SIMPLE, COMPLETE Bilateral 04/26/2017 MASTECTOMY, SIMPLE, COMPLETE-SUSAN (WRVU 15.85) performed by Jolie Menendez MD at [facility] OR ??? PRO PARTIAL REMOVAL OF RIB Bilateral 04/26/2017 EXCISION OF RIB, PARTIAL (WRVU 7.26) performed by Andre Gimenez MD at [facility] OR ??? PRO REMOVE ARMPITS LYMPH NODES COMPLT Left 04/26/2017 LYMPHADENECTOMY, AXILLARY, COMPLETE (WRVU 13.87) performed by Jolie Menendez MD at [facility] OR ??? PRO REPLACE TISSUE TRAIN ATTENDANT Bilateral 12/12/2017 TISSUE TRAIN ATTENDANT REPLACEMENT, WITH PERMANENT PROSTHESIS, SUSAN (WRVU 8.01) performed by Andre Gimenez MD at [facility] OR ??? PRO REVISION RECONSTRUCTED BREAST Left 06/22/2017 REVISION OF RECONSTRUCTED BREAST (WRVU 10.41) performed by Andre Gimenez MD at [facility] OR ??? PRO REVISION RECONSTRUCTED BREAST Bilateral 12/12/2017 REVISION OFRECONSTRUCTED BREAST, SUSAN (WRVU 10.41) performed by Andre Gimenez MD at [facility] MA[facility] OR ??? PRO THYMECTOMY, TRANSCERVICAL N/A 11/02/2015 THYMECTOMY, TRANSCERVICAL APPROACH performed by Valentina Lucas MD at [facility] MA[facility] OR ??? SHOULDER SURGERY Left [...] history: She lives with her outside of [place]. She does not smoke and drinks alcohol [...] We can send lab work requisition to [facility] for neuropathy screen including B12, vitamin B1, [...] [place] [address] Ladi Mendosa MD [facility] HEMATOLOGY [place] [address] 01/30/2024 11:30 AM EST Office Visit Dermatology at [place] [address] [place] [address] Nilda Luis MD [facility] [place] [address] 02/14/2024 7:30 AM EST Appointment [place] [address] Joanna Watts MD [facility] [place] [address] documented as of this encounter Visit Diagnoses Diagnosis Paresthesia of foot, bilateral- Primary Dysesthesia of scalp documented in this encounter Care Teams Coal Handler Relationship Specialty Start Date End Date Trinh Coates MD [facility] [address] [place] [address] PCP - General 01/11/10 documented as of this encounter
--- OUTSIDE RECORDS SUMMARY | 2023-09-25 11:44 | XMS_ITS | Encounter Summary ---
Author Organization [facility] Address [facility] [place] [address] Care Team Providers Care Hot Mill Roller Name Role Phone Trinh Coates MD Primary Care Provider [phone] Reason for Referral * Consultation (Routine) - Closed Specialty Diagnoses / Procedures Referred By Diamante marin Referred To Contact Orthopaedic Surgery Diagnoses Osteoarthritis of multiple joints, unspecified osteoarthritis type Emily Choi MD [facility] [place] [address] Referral ID Status Reason Start Date Expiration Date V isits Requested Visits Authorized [id number] Closed Consult, Test & Treat 07/11/2019 01/07/2020 1 1 Reason for Visit * Reason Onset Date Comments Other 07/11/2019 Encounter Details Date Type Department Care Team (Late st Contact Info) Description 07/11/2019 Telephone [place] [address] Emily Choi MD [facility] [place] [address] Other Social History Tobacco Use Types Packs/Day [...] to Ortho group ([facility]) in [facility]. I also advised her tocontact Dr. Coates for help w/managing the arthritic pain. Will speak w/her after plain xray C spine& R shoulder result available. Rtc 6 mos. Cc: Dr. Coates documented in this encounter Plan of Treatment Upcoming Encounters Date Type Department Care Team (Late st Contact Info) Description 01/22/2024 10:30 AM EST Appointment Mammography/[place] [address] Ladi Mendosa MD [facility] [place] [address] 01/30/2024 11:30 AM EST Office Visit Dermatology at [facility] [address] [place] [address] Nilda Luis MD [facility] [address] 02/14/2024 7:30 AM [place] [address] Joanna Watts MD [facility] [address] Scheduled Referrals Name Type Priority Associated Diagnoses Orde r Schedule Referral to Orthopaedics Outpatient Referral Routine Osteoarthritis of multiple joints, unspecified osteoarthritis type Ordered: 07/11/2019 documented as of this encounter Visit Diagnoses Diagnosis 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
--- OUTSIDE RECORDS SUMMARY | 2023-09-25 11:44 | XMS_ITS | Encounter Summary ---
Author Organization [facility] [place] [address] Care Team Providers Care Auto Seat Cover Installer Name Role Phone Trinh Coates MD Primary Care Provider [phone] Reason for Visit * Reason Comments Medication Refill Encounter Details Date Type Department Care Team (Late st Contact Info) Description 03/03/2020 Refill Dermatology at [facility] [address] [place] [address] Tino Mann MD [facility] DR [place] [address] Psoriasis Social History Tobacco Use Types Packs/Day [...] 01/22/2024 10:30 AM EST Appointment Mammography/[place] [address] Ladi Mendosa MD [facility] [place] [address] 01/30/2024 11:30 AM EST Office Visit Dermatology at [facility] [address] [place] [address] Nilda Luis MD [facility] [place] [address] 02/14/2024 7:30 AM [place] [address] Joanna Watts MD [facility] [place] [address] documented as of this encounter Visit Diagnoses Diagnosis Psoriasis Other psoriasis documented in this encounter Care Teams Auto Seat Cover Installer Relationship Specialty Start Date End Date Trinh Coates MD [address] [facility] 1 [place] [address] PCP - General 01/11/10 documented as of this encounter
--- OUTSIDE RECORDS SUMMARY | 2023-09-25 11:44 | XMS_ITS | Encounter Summary ---
Author Organization [facility] [place] [address] Care Team Providers Care In Flight Crew Member Name Role Phone Trinh Coates MD Primary Care Provider [phone] Reason for Visit * Reason Onset Date Comments TeleHealth 01/12/2020 Encounter Details Date Type Department Care Team (Late st Contact Info) Description 01/12/2020 Telephone [place] [address] Antwon Dowell MD [facility] [place] [address] TeleHealth Social History Tobacco Use Types Packs/Day [...] 10:30 AM EST Appointment Mammography/[place] [address] Ladi Mendosa MD [facility] HEMATOLOGY [place] [address] 01/30/2024 11:30 AM EST Office Visit Dermatology at [place] [address] [place] [address] Nilda Luis MD [facility] [place] [place] [address] 02/14/2024 7:30 AM EST Appointment [place] [address] Joanna Watts MD [facility] [place] [address] documented as of this encounter Visit Diagnoses Not on filedocumented in this encounter Care Teams In Flight Crew Member Relationship Specialty Start Date End Date Trinh Coates MD [facility] [place] [place] [address] PCP - General 01/11/10 documented as of this encounter
--- OUTSIDE RECORDS SUMMARY | 2023-09-25 11:44 | XMS_ITS | Encounter Summary ---
Author Organization [facility] Address [facility] [place] [address] Care Team Providers Care Medical Support Specialist Name Role Phone Trinh Coates MD Primary Care Provider [phone] Encounter Details Date Type Department Care Team (Late st Contact Info) Description 06/29/2019 Telephone Hematology/Oncology at [address] [address] Cosme Sawyer Social History Tobacco [...] 01/22/2024 10:30 AM EST Appointment Mammography/DXA at [place] [phone] Ladi Mendosa MD [facility] HEMATOLOG[place] [address] 01/30/2024 11:30 AM EST Office Visit Dermatology at [address] [address] Nilda Luis MD [facility] [place] [address] 02/14/2024 7:30 AM EST [place] [address] Joanna Watts MD [facility] [place] [address] documented as of this encounter Visit Diagnoses Not on filedocumented in this encounter Care Teams Medical Support Specialist Relationship Specialty Start Date End Date Trinh Coates MD [address] [place] [address] PCP - General 01/11/10 documented as of this encounter
--- OUTSIDE RECORDS SUMMARY | 2023-09-25 11:44 | XMS_ITS | Encounter Summary ---
Author Organization Formerly [facility] Address [facility] [place] [address] Care Team Providers Care Pole Lift Operator Name Role Phone Trinh Coates MD Primary Care Provider [phone] Reason for Referral * Diagnostic Test (Routine) - Closed Specialty Diagnoses / Procedures Referred By Diamante marin Referred To Contact Radiology Diagnoses Malignant neoplasm of upper-outer quadrant of left breast in female, estrogen receptor positive Procedures DXA Central Spine, Hip, and/or Whole Body (Generic) Josias Barnett MD [facility] HEMATOLOGY/[place] [address] [place] [address] Referral ID Status Reason Start Date Expiration Date V isits Requested Visits Authorized [id number] Closed Specialty Service Requested 1 1 Reason for Visit * Reason Comments Follow-up Encounter Details Date Type Department Care Team (Late st Contact Info) Description 12/06/2018 10:30 AM EDT Office Visit Hematology and Oncology at [facility] [place] [address] Josias Barnett MD [facility] HEMATOLOGY/[place] [address] Malignant neoplasm of upper-outer quadrant [...] in March 2017. 2.0 cm cancer, high-grade. ER/PA +++, HER-2/pat negative, 4/18 nodes (1/18 additional [...] her mother's side. Oct 2017 Genetic testing: [employer]'s Common Hereditary Cancers Panel showed no mutation was detected. This means that Wendy does not carry a mutation in the genes detectable by this test. The following genes were evaluated for sequence changes and exonic deletions/duplications: APC, AMAURY, AXIN2, BARD1, BMPR1A, BRCA1, BRCA2, BRIP1, CDH1, CDKN2A (p14ARF), CDKN2A (f02CHE8q), CHEK2, CTNNA1, DICER1, EPCAM (EPCAM: Deletion/duplication testing only (NM_[id number]), GREM1 (GREM1: Promoter region deletion/duplication testing only.), KIT, MEN1, MLH1, MSH2, MSH3, MSH6, MUTYH, NBN, NF1, PALB2, PDGFRA, PMS2, POLD1, POLE, PTEN, RAD50, RAD51C, RAD51D, SDHB, SDHC, SDHD, SMAD4, SMARCA4, STK11, TP53, TSC1, TSC 2, VHL. The following genes were evaluated for sequence changes only: HOXB13 (c.251G>A, p.Nog07Fct variant only), NTHL1 (NTHL1: Deletion/duplication analysis is not offered for this gene (NM_002528.6), and SDHA. A variant of uncertain significance in the AMAURY gene, specifically c.5727G>A (p.Ipa9464Dfr), was detected. Interval Hx/ROS: Persistent neuropathy of [...] a high-grade, node- positive left breast cancer ER+/PA+/HER2-. She is s/p bilateral mastectomy, completed adjuvant [...] 01/22/2024 10:30 AM EST Appointment Mammography/[place] [phone] Ladi Mendosa MD [facility] [place] [address] 01/30/2024 11:30 AM EST Office Visit Dermatology at [facility] [address] [place] [address] Nilda Luis MD [facility] [place] [address] 02/14/2024 7:30 AM EST [place] [phone] Joanna Watts MD [facility] [place] [address] documented as of this encounter Results * [...] BMD measurements and plots are available in [employer] under the imaging tab. Paper copies will be sent to providers without [employer] access. If you have received this report without the data sheet and do not have access to PA Semi, please contact Radiology Conservation Policy Analyst at [phone] Sunday thru Sunday 8am-4pm. Thank you for [...] were acquired at the right forearm. Densitometer: [employer] Discovery A COMPARISON: None FINDINGS: Lowest T-score [...] were acquired at the right forearm. Densitometer: [employer] Discovery A COMPARISON: None FINDINGS: Lowest T-score [...] BMD measurements and plots are available in EPerpetuuiti Techno[employer] Servicesunder the imaging tab. Paper copies will be sent to providers without E- access.If you have received this report without the data sheet and do not haveaccess to E-, please contact Radiology Conservation Policy Analyst at [phone] Sunday thr 8am-4pm. Thank you for letting us participate in the care of this patient. Forquestions regarding this report, please contact the number below. Josias Barnett MD IMG DEXA ORDERABLES * Follicle Stimulating Hormone (12/06/2018 11:12 AM EDT) Follicle Stimulating Hormone 34.3 mlU/ML [facility] Comment: Reference Ranges: Females: Follicular: ? 3.5-12.5 mIU/mL Ovulation: ?4.7-21.5 mIU/mL Luteal: ? 1.7-7.7 mIU/mL Postmenopausal: 25.8-134.8 mIU/mL Blood specimen (specimen) 12/06/2018 11:12 AM EDT 12/06/2018 11:35 AM EDT Narrative Resulting Agency Comment Spec In Lab Josias Barnett MD CHEMISTRY ORDERABLES [facility] [place] [address] * Estradiol (12/06/2018 11:12 AM EDT) Estradiol <5 pg/mL [facility] Comment: Reference ranges: Males: Adult: ? 11 to 43 pg/mL Females: Non- females: ?Follicular: ??12-233 pg/mL ?Ovulation: ?? 41-398 pg/mL ?Luteal: ?22-341 pg/mL ?Postmenopausal: ?? <5 -138 pg/mL females: ?1st trimester: ??154-3243 pg/mL ?2nd trimester: ??1561-15946 pg/mL ?3rd trimester: ??8525- >01698 pg/mL Blood specimen (specimen) 12/06/2018 11:12 AM EDT 12/06/2018 11:35 AM EDT Narrative Resulting Agency Comment Spec In Lab Josias Barnett MD CHEMISTRY ORDERABLES [facility] [place] [address] documented in this encounter Visit Diagnoses Diagnosis Malignant neoplasm of upper-outer quadrant of left breast in female, estrogen receptor positive Malignant neoplasm of upper-outer quadrant of left breast in female, estrogen receptor positive documented in this encounter Care Teams Pole Lift Operator Relationship Specialty Start Date End Date Trinh Coates MD [address] [place] [address] PCP - General 01/11/10 documented as of this encounter
--- OUTSIDE RECORDS SUMMARY | 2023-09-25 11:44 | XMS_ITS | Encounter Summary ---
Author Organization [facility] Address [facility] [place] [address] Care Team Providers Care Commercial Illustrator Name Role Phone Trinh Coates MD Primary Care Provider [phone] Reason for Visit * Reason Comments Radiation Follow-up Encounter Details Date Type Department Care Team (Late st Contact Info) Description 12/29/2019 3:00 PM EST Office Visit Radiation Oncology at [address] [phone] Emily Choi MD [facility] [place] [address] Hormone receptor positive malignant neoplasm [...] (03/11/18) for breast ca, L, IDC, gr3, ER+WI+, Her2 FISH neg, s/p B skin sparing mastectomies w/B free nipple grafts & L ax dissxn;immed B free flap recon attempted but could not be done due to flap arterial spasms; expanders placed; pT1c pN2a. Adjuvant chemo then given, followed by paster hat lining exchange for implants. She is taking anne, [...] rotator cuff by Ortho group in [facility]. Subjective: Recovering well from R shoulder surgery, [...] IR Drain Check/Change/Remove 11/20/2017 Marcos Dey MD [facility] ??? IR MEDIPORT REMOVAL 01/25/2018 IR Mediport Removal 01/25/2018 Scooby Muñoz, AARTI [facility] RAD ??? PRG EMG, LARYNX N/A 11/02/2015 FACIAL NERVE MONITORING, SETUP LARYNGEAL performed by Valentina Lucas MD at [facility] OR ??? PRO BREAST RECONSTRUC W FREE FLAP Bilateral 04/26/2017 @BREAST RECONSTRUCTION W/ FREE FLAP, SUSAN (WRVU 42.58) performed by Andre Gimenez MD at [facility] ??? PRO BREAST RECONSTRUC W FREE FLAP, W/O IMPLANT Bilateral 12/12/2017 @BREAST RECONSTRUCTION W/ LAT DORSI FLAP,W/O IMPLANT, SUSAN (WRVU 23.36) performed by Andre Gimenez MD at [facility] OR ??? PRO BREAST RECONSTRUC W TISS EXPANDR Bilateral 04/26/2017 BREAST RECONSTRUCTION, IMMEDIATE OR DELAYED, W/ TISSUE MEDART OPERATOR, INCLUDING SUBSEQUENT EXPANSION (WRVU 18.5) performed by Andre Gimenez MD at [facility] OR ? ? PRO DEBRIDEMENT SUBCUTANEOUS TISSUE 20 SQCM/< 06/22/2017 DEBRIDEMENT SKIN AND SUBCU, BREAST (WRVU 1.01) performed by Andre Gimenez MD at [facility] OR ??? PRO EXPLORE PARATHYROID GLANDS N/A 11/02/2015 PARATHYROIDECTOMY OR EXPLORATION OF PARATHYROID(S) performed by Valentina Lucas MD at [facility] OR ? ? PRO FULL THICK GRFT TRUNK <20 SQCM Bilateral 04/26/2017 FTSG, FREE, DIR CLOSE DONOR SITE, TRUNK, 20 SQ CM OR LESS (WRVU 9.15) performed by Andre Gimenez MD at [facility] OR ??? PRO INCISION OF LYMPH CHANNELS Left 10/18/2018 INCISION & DRAINAGE LYMPHOCELE (WRVU 6.81) performed by Andre Gimenez MD at [facility] OR ??? PRO IV INJ TO TEST BLOOD FLOW IN FLAP/GRAFT Left 10/18/2018 IV INJECTION, AGENT TO TEST VASC FLOW IN FLAP OR GRAFT, ENT (WRVU 1.95) performed by Andre Gimenez MD at [facility] OR ??? PRO MASTECTOMY, SIMPLE, COMPLETE Bilateral 04/26/2017 MASTECTOMY, SIMPLE, COMPLETE-SUSAN (WRVU 15.85) performed by Jolie Menendez MD at [facility] OR ??? PRO PARTIAL REMOVAL OF RIB Bilateral 04/26/2017 EXCISION OF RIB, PARTIAL (WRVU 7.26) performed by Andre Gimenez MD at [facility] OR ??? PRO REMOVE ARMPITS LYMPH NODES COMPLT Left 04/26/2017 LYMPHADENECTOMY, AXILLARY, COMPLETE (WRVU 13.87) performed by Jolie Menendez MD at [facility] OR ??? PRO REPLACE TISSUE MEDART OPERATOR Bilateral 12/12/2017 TISSUE MEDART OPERATOR REPLACEMENT, WITH PERMANENT PROSTHESIS, SUSAN (WRVU 8.01) performed by Andre Gimenez MD at [facility] OR ??? PRO REVISION RECONSTRUCTED BREAST Left 06/22/2017 REVISION OF RECONSTRUCTED BREAST (WRVU 10.41) performed by Andre Gimenez MD at [facility] OR ??? PRO REVISION RECONSTRUCTED BREAST Bilateral 12/12/2017 REVISION OFRECONSTRUCTED BREAST, SUSAN (WRVU 10.41) performed by Andre Gimenez MD at [facility] OR ??? PRO THYMECTOMY, TRANSCERVICAL N/A 11/02/2015 THYMECTOMY, TRANSCERVICAL APPROACH performed by Valentina Lucas MD at [facility] OR ??? 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
--- OUTSIDE RECORDS SUMMARY | 2023-09-25 11:44 | XMS_ITS | Encounter Summary ---
Author Organization [facility]ly [facility] Address [facility] [place] [address] Care Team Providers Care Speech And Language Specialist Name Role Phone Trinh Coates MD Primary Care Provider [phone] Encounter Details Date Type Department Care Team (Late st Contact Info) Description 03/07/2019 Telephone Dermatology at [facility] [address] [place] [address] Anderson Zhou MD [facility] [address] [address] Social History Tobacco Use Types Packs/Day Years [...] EST DERMATOLOGY TELEPHONE NOTE Wendy Sandoval 03/07/2019 [id number] Reason for call: Discuss biopsy results I [...] 01/22/2024 10:30 AM EST Appointment Mammography/DXA at [place] [phone] Ladi Mendosa MD [facility] [place] [address] 01/30/2024 11:30 AM EST Office Visit Dermatology at [place] [address] [place] [phone] Nilda Luis MD [facility] [place] [address] 02/14/2024 7:30 AM EST [place] [address] Joanna Watts MD [facility] [place] [address] documented as of this encounter Visit Diagnoses Not on filedocumented in this encounter Care Teams Speech And Language Specialist Relationship Specialty Start Date End Date Trinh Coates MD [facility] [address] [place] [address] PCP - General 01/11/10 documented as of this encounter
--- OUTSIDE RECORDS SUMMARY | 2023-09-25 11:44 | XMS_ITS | Encounter Summary ---
Author Organization [facility] [place] [address] Care Team Providers Care Data Examination Clerk Name Role Phone Trnih Coates MD Primary Care Provider [phone] Reason for Visit * Reason Onset Date Comments Appointment 12/25/2018 Urgent Referral Encounter Details Date Type Department Care Team (Late st Contact Info) Description 12/25/2018 Telephone [place] [phone] Aida Hale Appointment (Urgent Referral) Social History [...] Patient has not heard from anyone at [facility]. They requested patient be contacted today Appt Needed and Reason: Yes CKD III Provider: TBD documented in this encounter Plan of Treatment Upcoming Encounters Date Type Department Care Team (Late st Contact Info) Description 01/22/2024 10:30 AM EST Appointment Mammography/[place] [phone] Ladi Mendosa MD [facility] HEMATOLOGY [place] [address] 01/30/2024 11:30 AM EST Office Visit Dermatology at [address] [place] [phone] Nilda Luis MD [facility] [place] [address] 02/14/2024 7:30 AM EST [place] [address] Joanna Watts MD [facility] [place] [address] documented as of this encounter Visit Diagnoses Not on filedocumented in this encounter Care Teams Data Examination Clerk Relationship Specialty Start Date End Date Trinh Coates MD [address] [place] [address] PCP - General 01/11/10 documented as of this encounter
--- OUTSIDE RECORDS SUMMARY | 2023-09-25 11:44 | XMS_ITS | Encounter Summary ---
Author Organization [facility] [place] [address] Care Team Providers Care Computer Network Specialist Name Role Phone Trinh Coates MD Primary Care Provider [phone] Reason for Visit * Reason Comments Follow-up fse Skin Lesion itchy scalp Encounter Details Date Type Department Care Team (Late st Contact Info) Description 03/04/2019 10:00 AM EST Office Visit Dermatology at [address] [address] Anderson Zhou MD [facility] [address] [place] [address] High risk medication use; Psoriasis vulgaris; Scalp [...] psoriasis ?? 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 [employer] Hobbies: Gardening Sun protection: Wears sunscreen [...] by: Anderson Zhou MD Resident in Dermatology [facility] Patient seen and evaluated with staff intelligence clerk: Natasha Ascencio MD Section of Dermatology [facility] * Natasha Ascencio MD - 03/04/2019 [...] AM EST Appointment Mammography/[place] [address] Ladi Mendosa MD [facility] HEMATOLOGY [place] [address] 01/30/2024 11:30 AM EST Office Visit Dermatology at [facility] [address] [place] [address] Nilda Luis MD [facility] [address] 02/14/2024 7:30 AM [place] [phone] Joanna Watts MD [facility] [place] [address] documented as of this encounter Procedures Procedure [...] (ABNORMAL) Differential, Automated (03/04/2019 10:31 AM EST) Neutrophil % 67.8 % [facility] Neutrophil Absolute 5.56 1.70 - 6.10 x10(3)/mc L [facility] Lymph % 15.1 % [facility] Lymphocytes Abs 1.2 0.9 - 3.2 x10(3)/mc L [facility] Monocyte % 9.3 % [facility] Monocyte Abs 0.8 0.3 - 0.9 x10(3)/mc L [facility] Eos % 5.9 % [facility] Eosinophils Abs 0.5(H) 0.0 - 0.4 x10(3)/mc L [facility] Basophil % 1.3 % [facility] Baso Absolute 0.1 0.0 - 0.1 x10(3)/mc L [facility] Immature Gran % 0.60 % [facility] Comment: Immature granulocytes(IG's)percentage and absolute count will include metamyelocytes, myelocytes, and promyelocytes. Blood smears from CBCs yielding IG's will be scanned manually for concordance. If this scan disagrees with the automated IG or if promyelocytes are noted, a manual differential will be performed. Immature Gran Absolute 0.05(H) 0.00 - 0.04 x10(3)/mc L [facility] Blood specimen (specimen) 03/04/2019 10:31 AM EST 03/04/2019 12:46 PM EST Narrative Resulting Agency Comment Spec In Lab Anderson Zhou MD HEMATOLOGY ORDERABLE S Performing Organization Address City/State/[facility] Co de Phone Number [facility] [place] [address] * (ABNORMAL) Hemogram (03/04/2019 10:31 AM EST) White Blood Cell 8.2 4.0 - 9.5 x10(3)/ L [facility] Red Blood Cell 4.34 4.00 - 5.21 x10(6)/mc L [facility] Hemoglobin 13.6 11.7 - 15.5 gm/dL [facility] Hematocrit 43.2 35.7 - 45.8 % [facility] Mean Cell Volume 99.5(H) 82.6 - 94.4 fL [facility] Mean Cell Hemoglobin 31.3 27.1 - 32.0 pg [facility] Mean Cell Hemoglobin Concentration 31.5(L) 31.7 - 35.0 gm/dL [facility] Platelet 348 145 - 357 x10(3)/ L [facility] RDW Standard Deviation 47.1(H) 37.0 - 46.0 fL [facility] RDW coefficient of variation 12.7 11.5 - 14.1 % [facility] Mean Platelet Volume 9.6 7.6 - 12.9 fL [facility] NRBC% auto 0.0 % [facility] NRBC Absolute 0.000 0.000 - 0.000 x10(3)/mc L [facility] Blood specimen (specimen) 03/04/2019 10:31 AM EST 03/04/2019 12:46 PM EST Narrative Resulting Agency Comment Spec In Lab Anderson Zhou MD HEMATOLOGY ORDERABLE S [facility] [place] [address] * (ABNORMAL) Comprehensive metabolic panel (non-fasting) (03/04/2019 10:31 AM EST) Glucose 132 65 - 199 mg/dL [facility] Comment:Diabetes: >=200 mg/d L plus symptoms Blood Urea Nitrogen 27(H) 8 - 18 mg/dL [facility] Creatinine 1.34(H) 0.70 - 1.20 mg/dL [facility] Sodium 142 135 - 145 mmol/L [facility] Potassium 4.8 3.5 - 5.0 mmol/L [facility] Comment: Please note: ??Patients with WBC >100,000 may have falsely elevated Potassium levels. ??For accurate Potassium quantification in these patients send serum separator tube (gold top) for subsequent determinations. ??Contact the Clinical Chemistry Laboratory if there are any questions. Chloride 107 98 - 107 mmol/L [facility] Carbon Dioxide 23 22 - 31 mmol/L [facility] Anion Gap 12 5 - 15 mmol/L [facility] Calcium 9.4 8.5 - 10.5 mg/dL [facility] Protein, Total 6.9 6.1 - 8.0 gm/dL [facility] Albumin 4.2 3.2 - 5.2 gm/dL [facility] Aspartate Aminotransferase 17 0 - 30 unit/L [facility] Alanine Aminotransferase 18 0 - 30 unit/L [facility] Alkaline Phosphatase 94 35 - 105 unit/L [facility] Bilirubin, Total 0.3 0.2 - 1.3 mg/dL [facility] Est Glomerular Filtration Rate 44(L) >=60 mL/min/1. 73 m?? [facility] Comment: The eGFR was calculated using the CKD-EPI equation. As with all creatinine based estimates of kidney function, eGFR values calculated with the CKD-EPI equation are not accurate in patients with acute kidney failure, extremes of body mass or the acutely ill. http://First Coverage/[facility] eGFR 52(L) >=60 mL/min/1. 73 m?? [facility] Comment: The eGFR was calculated using the CKD-EPI equation. As with all creatinine based estimates of kidney function, eGFR values calculated with the CKD-EPI equation are not accurate in patients with acute kidney failure, extremes of body mass or the acutely ill. http://First Coverage/[facility] PRAGUEnkf Blood specimen (specimen) 03/04/2019 10:31 AM EST 03/04/2019 1:00 PM EST Narrative Resulting Agency Comment Spec In Lab Natasha Ascencio MD CHEMISTRY ORDERABLES Performing Organization Address City/[facility]/ZIP Co de Phone Number [facility] [place] [address] * Specimen to Pathology (03/04/2019 10:17 AM EST) AP Specimen 03/04/2019 10:1 7 AM EST 03/04/2019 6:31 PM EST Narrative [facility] - 03/04/2019 6:31 PM EST Specimen requisition ordered. ??Separate Pathology report to follow Resulting Agency Comment Spec In Lab Natasha Ascencio MD PATHOLOGY/CYTOLOGY O RDERABLES [facility] [place] [address] * Surgical Pathology Report (03/04/2019 10:10 AM EST) Final Diagnosis [id number] ? Location: HDM The signing pathologist has [...] MD Verified: ??03/06/2019 ?Dermatopathol ogist Performed at: ??-[facility] Dept. of Pathology, [place], [place] ADDITIONAL STUDIES Multiple step-leveled sections are [...] submitted in 1 cassette labeled A1. ??MLL 03/06/2019 12:39 PM EST [facility] SPECIMEN FROM SKIN / Unknown 03/04/2019 10:10 AM EST 03/04/2019 10:10 AM EST Anderson Zhou MD PATHOLOGY/CYTOLOGY O RDERABLES [facility] [place] [address] documented in this encounter Visit Diagnoses Diagnosis High risk medication use Encounter for long-term (current) use of other medications Psoriasis vulgaris Other psoriasis Scalp pruritus Unspecified pruritic disorder Brachioradial pruritus Nevus Benign neoplasm of skin, site unspecified documented in this encounter Care Teams Computer Network Specialist Relationship Specialty Start Date End Date Trinh Coates MD [address] [place] [address] PCP - General 01/11/10 documented as of this encounter
--- OUTSIDE RECORDS SUMMARY | 2023-09-25 11:44 | XMS_ITS | Encounter Summary ---
Author Organization [facility] Address [facility] [place] [address] Care Team Providers Care Embroidery Patternmaker Name Role Phone Trinh Coates MD Primary Care Provider [phone] Reason for Referral * Diagnostic Test (Routine) - Closed Specialty Diagnoses / Procedures Referred By Contac t Referred To Contact Radiology Diagnoses Malignant neoplasm of upper-outer quadrant of left breast in female, estrogen receptor positive Procedures DXA Central Spine, Hip, and/or Whole Body (Generic) Josias Barnett MD [facility] HEMATOLOGY/[place] [address] [facility] [address] [place] [address] [place] [address] Referral ID Status Reason Start Date Expiration Date V isits Requested Visits Authorized [id number] Closed Specialty Service Requested 1 1 Reason for Visit * Diagnostic Test (Routine) - Closed Specialty Diagnoses / Procedures Referred By Contac t Referred To Contact Radiology Diagnoses Malignant neoplasm of upper-outer quadrant of left breast in female, estrogen receptor positive Procedures DXA Central Spine, Hip, and/or Whole Body (Generic) Josias Barnett MD [facility] HEMATOLOGY/[place] [address] [facility] Rad Xray [address] [place] [address] [place] [address] Referral ID Status Reason Start Date Expiration Date V isits Requested Visits Authorized [id number] Closed Specialty Service Requested 1 1 Encounter Details Date Type Department Care Team (Latest Contact Info) Description 01/29/2019 9:15 AM EST - 01/29/2019 11:59 PM EST Hospital Encounter XRay at [address] [place] [address] Josias Barnett MD [facility] HEMATOLOGY/[place] [address] Malignant neoplasm of upper-outer quadrant of left [...] 5 01/07/2019 10/20/2019 anastrozole (ARIMIDEX) 1 mg TabletIndications:Stan bañuelos neoplasm of upper-outer quadrant [...] 1 07/24/2018 11/15/2021 gabapentin (NEURONTIN) 300 mg CapsuleIndications:Elaine rojas neoplasm of upper-outer quadrant of left breast in female, estrogen receptor positive,Neuropathy due to chemotherapeutic drug Take 1 capsule by mouth 3 times daily. 90 capsule 3 05/29/2018 07/25/2022 potassium chloride 20 mEq Tablet Sustained Release 1 tablet daily. 0 09/17/2017 07/12/2020 atorvastatin (LIPITOR) 20 mg Tablet Take 1 tablet by mouth daily. 0 03/02/2017 07/12/2020 acetaminophen (TYLENOL) 325 mg Tablet Take 2 tablets by mouth every 4 hours as needed for Pain. 11/03/2015 07/25/2022 clobetasol (TEMOVATE) 0.05 % CreamIndications:Psoria sis Apply to affected areas on knees, elbows and hands twice daily for two week cycles as needed. 60 g 3 04/16/2014 10/20/2019 documented as of this encounter Plan of Treatment Upcoming Encounters Date Type Department Care Team (Late st Contact Info) Description 01/22/2024 10:30 AM EST Appointment Mammography/[place] [address] Ladi Mendosa MD [facility] [place] [address] 01/30/2024 11:30 AM EST Office Visit Dermatology at [facility] [address] [place] [address] Nilda Luis MD [facility] [place] [address] 02/14/2024 7:30 AM EST Appointment [place]iology [place] [address] Joanna Watts MD [facility] [place] [address] documented as of this encounter Procedures Procedure [...] BMD measurements and plots are available in [employer] under the imaging tab. Paper copies will be sent to providers without [employer] access. If you have received this report without the data sheet and do not have access to [employer], please contact Radiology [place] at [phone] Sunday thru Sunday 8am-4pm. Thank you for [...] BMD measurements and plots are available in [employer] the imaging tab. Paper copies will be sent to providers without [employer] access.If you have received this report without the data sheet and do not haveaccess to [employer], please contact Radiology [facility] at [phone] Sunday thruFriday 8am-4pm. Thank you for letting us participate in the care of this patient. Forquestions regarding this report, please contact the number below. Josias Barnett MD IMG DEXA ORDERABLES documented in this encounter Visit Diagnoses Diagnosis Malignant neoplasm of upper-outer quadrant of left breast in female, estrogen receptor positive documented in this encounter Care Teams Embroidery Patternmaker Relationship Specialty Start Date End Date Trinh Coates MD [address] [place] [address] PCP - General 01/11/10 documented as of this encounter
--- OUTSIDE RECORDS SUMMARY | 2023-09-25 11:44 | XMS_ITS | Encounter Summary ---
Author Organization [facility] Address [facility] [place] [address] Care Team Providers Care Plastic Block Boiler Reliner Name Role Phone Trinh Coates MD Primary Care Provider [phone] Reason for Visit * Reason Comments Skin Cancer Examination Encounter Details Date Type Department Care Team (Late st Contact Info) Description 05/04/2020 10:15 AM EDT Office Visit Dermatology at [address] [address] Nilda Luis MD [facility] [place] [address] High risk medications (not anticoagulants) long-term use; [...] CLINIC NOTE Date of Service: 05/04/2020 Wendy Yannick Sandoval : 1965 Provider: Nilda Luis MD [...] to discuss care with N/A Preferred pharmacy [facility] in [place], [place] Procedure Screening Questions Y/N Allergies to [...] the scalp, is unlikely to be main front end loader driver of the pruritus. - Discussed treatment options, [...] up - psoriasis [] Note routed to secretary to board of commissioners to schedule [x] Recall placed in scheduling system [] Appointment scheduled before exiting Note initiated by: Ailyn Cornejo CMA I am documenting this encounter acting as the scribe for and in the presence of Dr. Luis: Abby Espinal I performed the above scribed service and agree with the accuracy of the documentation in this encounter. Nilda Luis MD Reclamation Worker of Dermatology Department of Dermatology [facility] cc: Trinh Coates MD * Nilda [...] AM EST Appointment Mammography/[place] [address] Ladi Mendosa MD [facility] [place] [address] 01/30/2024 11:30 AM EST Office Visit Dermatology at [facility] [address] [place] [address] Nilda Luis MD [facility] [place] [address] 02/14/2024 7:30 AM EST Appointment Radiology at [facility] [place] [phone] Joanna Watts MD [facility] [place] [address] documented as of this encounter Procedures Procedure [...] (ABNORMAL) Differential, Automated (05/04/2020 11:06 AM EDT) Neutrophil % 65.4 % [facility] Neutrophil Absolute 5.84 1.70 - 6.10 x10(3)/mc L [facility] Lymph % 18.2 % [facility] Lymphocytes Abs 1.6 0.9 - 3.2 x10(3)/mc L [facility] Monocyte % 9.3 % [facility] Monocyte Abs 0.8 0.3 - 0.9 x10(3)/mc L [facility] Eos % 5.3 % [facility] Eosinophils Abs 0.5(H) 0.0 - 0.4 x10(3)/ L [facility] Basophil % 1.6 % [facility] Baso Absolute 0.1 0.0 - 0.1 x10(3)/ L [facility] Immature Gran % 0.20 % [facility] Comment: Immature granulocytes(IG's)percentage and absolute count will include metamyelocytes, myelocytes, and promyelocytes. Blood smears from CBCs yielding IG's will be scanned manually for concordance. If this scan disagrees with the automated IG or if promyelocytes are noted, a manual differential will be performed. Immature Gran Absolute 0.02 0.00 - 0.04 x10(3)/[facility] Blood specimen (specimen) 05/04/2020 11:06 AM EDT 05/04/2020 1:26 PM EDT Narrative Resulting Agency Comment Spec In Lab Nilda Luis MD HEMATOLOGY ORDERABL ES [facility] [place] [address] * (ABNORMAL) Hemogram (05/04/2020 11:06 AM EDT) White Blood Cell 8.9 4.0 - 9.5 x10(3)/[facility] Red Blood Cell 4.34 4.00 - 5.21 x10(6)/ L [facility] Hemoglobin 13.7 11.7 - 15.5 gm/dL [facility] Hematocrit 42.4 35.7 - 45.8 % [facility] Mean Cell Volume 97.7(H) 82.6 - 94.4 fL [facility] Mean Cell Hemoglobin 31.6 27.1 - 32.0 pg [facility] Mean Cell Hemoglobin Concentration 32.3 31.7 - 35.0 gm/dL [facility] Platelet 309 145 - 357 x10(3)/mc L [facility] RDW Standard Deviation 46.6(H) 37.0 - 46.0 fL [facility] RDW coefficient of variation 13.1 11.5 - 14.1 % [facility] Mean Platelet Volume 10.3 7.6 - 12.9 fL [facility] NRBC% auto 0.0 % [facility] NRBC Absolute 0.000 0.000 - 0.000 x10(3)/mc L [facility] Blood specimen (specimen) 05/04/2020 11:06 AM EDT 05/04/2020 1:26 PM EDT Narrative Resulting Agency Comment Spec In Lab Nilda Luis MD HEMATOLOGY ORDERABL ES [facility] [place] [address] * (ABNORMAL) Comprehensive metabolic panel (non-fasting) (05/04/2020 11:06 AM EDT) Glucose 97 65 - 199 mg/dL [facility] Comment:Diabetes: >=200 mg/d L plus symptoms Blood Urea Nitrogen 27(H) 8 - 18 mg/dL [facility] Creatinine 1.34(H) 0.70 - 1.20 mg/dL [facility] Sodium 143 135 - 145 mmol/L [facility] Potassium 4.5 3.5 - 5.0 mmol/L [facility] Comment: Please note: ??Patients with WBC >100,000 may have falsely elevated Potassium levels. ??For accurate Potassium quantification in these patients send serum separator tube (gold top) for subsequent determinations. ??Contact the Clinical Chemistry Laboratory if there are any questions. Chloride 108(H) 98 - 107 mmol/L [facility] Carbon Dioxide 24 22 - 31 mmol/L [facility] Anion Gap 11 5 - 15 mmol/L [facility] Calcium 9.5 8.5 - 10.5 mg/dL [facility] Protein, Total 7.5 6.1 - 8.0 gm/dL [facility] Albumin 4.5 3.2 - 5.2 gm/dL [facility] Aspartate Aminotransferase 19 0 - 30 unit/L [facility] Alanine Aminotransferase 29 0 - 30 unit/L [facility] Alkaline Phosphatase 97 35 - 105 unit/L [facility] Bilirubin, Total 0.4 0.2 - 1.3 mg/dL [facility] Est Glomerular Filtration Rate 44(L) >=60 mL/min/1. 73 m?? [facility] Comment: This patient? s estimated [...] MD CHEMISTRY ORDERABLE S Performing Organization Address City/State/[facility] Co de Phone Number [facility] [place] [address] * QuantiFERON-TB Gold (05/04/2020 11:06 AM EDT) Quantiferon Nil 0.010 IU/mL [facility] QFT TB Ag1-Nil 0.000 IU/mL [facility] QFT TB Ag2-Nil 0.000 IU/mL [facility] Quantiferon Mitogen-Nil 9.410 IU/mL [facility] Quantiferon-TB Gold Negative Negative [facility] Quantiferon Tb Interp M. tuberculosis [...] affect immune function, or other immunological factors. [facility] Comment: The performance of the [...] Lab Nilda Luis MD CHEMISTRY ORDERABLE S [facility] [place] [address] * Tissue transglutaminase, IgA (05/04/2020 11:06 AM EDT) TTG IgA Ab 1.0 0.1 - 10.0 u/ml [facility] Comment: Negative = <7 U/mL Equivocal = 7-10 U/mL Positive = >10 U/mL Blood specimen (specimen) 05/04/2020 11:06 AM EDT 05/04/2020 3:28 PM EDT Narrative Resulting Agency Comment Spec In Lab Nilda Luis MD IMMUNOLOGY ORDERABL ES [facility] [place] [address] documented in this encounter Visit Diagnoses Diagnosis [...] tissue documented in this encounter Care Teams Plastic Block Boiler Reliner Relationship Specialty Start Date End Date Trinh Coates MD [address] [place] [address] PCP - General 01/11/10 documented as of this encounter
--- OUTSIDE RECORDS SUMMARY | 2023-09-25 11:44 | XMS_ITS | Encounter Summary ---
Author Organization [facility] Address [facility] [place] [address] Care Team Providers Care Tile Sorter Name Role Phone Trinh Coates MD Primary Care Provider [phone] Encounter Details Date Type Department Care Team (Latest Contact Info) Description 06/16/2019 4:15 PM EDT TH Visit (TeleHealth) [place] [address] Josias Barnett MD [facility] HEMATOLOGY/[place] [address] Malignant neoplasm of upper-outer quadrant of left [...] in March 2017. 2.0 cm cancer, high-grade. ER/MT +++, HER-2/pat negative, 4/18 nodes (1/18 additional [...] her mother's side. Oct 2017 Genetic testing: [employer] Common Hereditary Cancers Panel showed no mutation was detected. This means that Wendy does not carry a mutation in the genes detectable by this test. The following genes were evaluated for sequence changes and exonic deletions/duplications: APC, AMAURY, AXIN2, BARD1, BMPR1A, BRCA1, BRCA2, BRIP1, CDH1, CDKN2A (p14ARF), CDKN2A ([id number]), CHEK2, CTNNA1, DICER1, EPCAM (EPCAM: Deletion/duplication testing only ([id number]), GREM1 (GREM1: Promoter region deletion/duplication testing only.), KIT, MEN1, MLH1, MSH2, MSH3, MSH6, MUTYH, NBN, NF1, PALB2, PDGFRA, PMS2, POLD1, POLE, PTEN, RAD50, RAD51C, RAD51D, SDHB, SDHC, SDHD, SMAD4, SMARCA4, STK11, TP53, TSC1, TSC 2, VHL. The following genes were evaluated for sequence changes only: HOXB13 (c.251G>A, p.[id number] variant only), NTHL1 (NTHL1: Deletion/duplication analysis is not offered for this gene ([id number]), and SDHA. A variant of uncertain significance in the AMAURY gene, specifically c.5727G>A (p.[id number]), was detected. Interval Hx/ROS: Persistent neuropathy in [...] a high-grade, node- positive left breast cancer ER+/MT+/HER2-. She is s/p bilateral mastectomy, completed adjuvant [...] 01/22/2024 10:30 AM EST Appointment Mammography/[place] [address] Ladi Mendosa MD [facility] [place] [address] 01/30/2024 11:30 AM EST Office Visit Dermatology at [address] [phone] Nilda Luis MD [facility] [place] [address] 02/14/2024 7:30 AM EST [place] [address] Joanna Watts MD [facility] [address] documented as of this encounter Visit Diagnoses Diagnosis Malignant neoplasm of upper-outer quadrant of left breast in female, estrogen receptor positive documented in this encounter Care Teams Tile Sorter Relationship Specialty Start Date End Date Trinh Coates MD [facility] [address] [place] [address] PCP - General 01/11/10 documented as of this encounter
--- OUTSIDE RECORDS SUMMARY | 2023-09-25 11:44 | XMS_ITS | Encounter Summary ---
Author Organization [facility] Address [facility] [place] [address] Care Team Providers Care Slitter Scorer Name Role Phone Trinh Coates MD Primary Care Provider [phone] Encounter Details Date Type Department Care Team (Late st Contact Info) Description 07/09/2019 Ancillary Procedure [place] [phone] Emily Choi MD [facility] [place] [address] Social History Tobacco Use Types Packs/Day Years [...] 01/22/2024 10:30 AM EST Appointment Mammography/[place] [address] Ladi Mendosa MD [facility] HEMATOLOGY [place] [address] 01/30/2024 11:30 AM EST Office Visit Dermatology at [facility] [address] [place] [address] Nilda Luis MD [facility] [place] [address] 02/14/2024 7:30 AM EST [place] [phone] Joanna Watts MD [facility] [place] [address] documented as of this encounter Procedures Procedure Name Priority Date/Time Associated Diagnosis Comments FILM LIBRARY STORAGE ONLY CT CHEST Routine 07/09/2019 12:00 AM EDT documented in this encounter Results * Film Library- Storage Only CT Chest (07/09/2019 12:00 AM EDT) Narrative [facility] - 07/10/2019 6:51 AM EDT This exam is auto-finalizing. It's purpose is for storage only. Emily Choi MD IMG FILM LIBRARY ORD ERABLES [place], [place] documented in this encounter Visit Diagnoses Not on filedocumented in this encounter Care Teams Slitter Scorer Relationship Specialty Start Date End Date Trinh Coates MD [address] [place] [address] PCP - General 01/11/10 documented as of this encounter
--- OUTSIDE RECORDS SUMMARY | 2023-09-25 11:44 | XMS_ITS | Encounter Summary ---
Author Organization [place] [address] Care Team Providers Care Foreign Diplomat Name Role Phone Trinh Coates MD Primary Care Provider [phone] Encounter Details Date Type Department Care Team (Late st Contact Info) Description 04/07/2019 Telephone Nephrology [place] [address] Alejandra aGrcia Social History Tobacco Use Types Packs/Day Years [...] 01/22/2024 10:30 AM EST Appointment Mammography/[place] [address] Ladi Mendosa MD [facility] DR HEMATOLOGY [place] [address] 01/30/2024 11:30 AM EST Office Visit Dermatology at [facility] [address] [place] [address] Nilda Luis MD [facility] [place] [address] 02/14/2024 7:30 AM EST Appoint[place] [address] Joanna Watts MD [facility] [place] [address] documented as of this encounter Visit Diagnoses Not on filedocumented in this encounter Care Teams Foreign Diplomat Relationship Specialty Start Date End Date Trinh Coates MD [facility] [address] [facility] [address] [place] [address] PCP - General 01/11/10 documented as of this encounter
--- OUTSIDE RECORDS SUMMARY | 2023-09-25 11:44 | XMS_ITS | Encounter Summary ---
Author Organization [place] [address] Care Team Providers Care Ball Mill Mixer Name Role Phone Trinh Coates MD Primary Care Provider [phone] Reason for Visit * Reason Onset Date Comments Medical Care Coordination 03/06/2019 Encounter Details Date Type Department Care Team (Late st Contact Info) Description 03/06/2019 Telephone [place] [phone] Gail Rowley, RN Medical Care Coordination Social [...] 01/22/2024 10:30 AM EST Appointment Mammography/DXA at [place] [phone] Ladi Mendosa MD [facility] [place] [address] 01/30/2024 11:30 AM EST Office Visit Dermatology at [address] [phone] Nilda Luis MD [facility] [place] [address] 02/14/2024 7:30 AM EST Appointment [place] [address] Joanna Watts MD [facility] [place] [address] documented as of this encounter Visit Diagnoses Not on filedocumented in this encounter Care Teams Ball Mill Mixer Relationship Specialty Start Date End Date Trinh Coates MD [facility] [address] [place] [address] PCP - General 01/11/10 documented as of this encounter
--- OUTSIDE RECORDS SUMMARY | 2023-09-25 11:44 | XMS_ITS | Encounter Summary ---
Author Organization [facility] Address [facility] Marg[facility] [place] [address] Care Team Providers Care Birth Certificate Clerk Name Role Phone Trinh Coates MD Primary Care Provider [phone] Reason for Visit * Reason Comments Specialty Pharmacy Review Encounter Details Date Type Department Care Team (Late st Contact Info) Description 10/20/2019 Specialty [place] [address] SlySneha Social History Tobacco Use Types Packs/Day [...] 01/22/2024 10:30 AM EST Appointment Mammography/[place] [address] Ladi Mnedosa MD [facility] DR HEMATOLOGY [place] [address] 01/30/2024 11:30 AM EST Office Visit Dermatology at [facility] [address] [place] [phone] Nilda Luis MD [facility] [place] [address] 02/14/2024 7:30 AM EST [place]ment [place] [phone] Joanna Watts MD [facility] [place] [address] documented as of this encounter Visit Diagnoses Not on filedocumented in this encounter Care Teams Birth Certificate Clerk Relationship Specialty Start Date End Date Trinh Coates MD [facility] [address] [facility] [address] [place] [address] PCP - General 01/11/10 documented as of this encounter
--- OUTSIDE RECORDS SUMMARY | 2023-09-25 11:44 | XMS_ITS | Encounter Summary ---
Author Organization [facility] Address [facility] [place] [address] Care Team Providers Care Citrus Picker Name Role Phone Trinh Coates MD Primary Care Provider [phone] Encounter Details Date Type Department Care Team (Late st Contact Info) Description 2019 Telephone Radiation Oncology at [address] [address] Narcisa Hair RN Social History [...] PM EDT Radiation Oncology Nurse Telephone Note [facility] [place], [place] ---- Message from Cosme Sawyer sent [...] 01/22/2024 10:30 AM EST Appointment Mammography/DXA at [place] [phone] Ladi Mendosa MD [facility] [place] [address] 01/30/2024 11:30 AM EST Office Visit Dermatology at [address] [phone] Nilda Luis MD [facility] [place] [address] 02/14/2024 7:30 AM EST [place] [address] Joanna Watts MD [facility] [place] [address] documented as of this encounter Visit Diagnoses Not on filedocumented in this encounter Care Teams Citrus Picker Relationship Specialty Start Date End Date Trinh Coates MD [facility] [address] [place] [address] PCP - General 01/11/10 documented as of this encounter
--- OUTSIDE RECORDS SUMMARY | 2023-09-25 11:44 | XMS_ITS | Encounter Summary ---
Author Organization [facility] Address [facility] [place] [address] Care Team Providers Care Wrapper Rewinder Name Role Phone Trinh Coates MD Primary Care Provider [phone] Encounter Details Date Type Department Care Team (Latest Contact Info) Description 01/30/2020 10:30 AM EST [place] [address] Antwon Dowell MD [facility] [place] [address] Polyneuropathy; Dysesthesia of scalp Social History Tobacco [...] 01/22/2024 10:30 AM EST Appointment Mammography/[place] [phone] Ladi Mendosa MD [facility] DR [place] [address] 01/30/2024 11:30 AM EST Office Visit Dermatology at [address] [address] Nilda Luis MD [facility] [place] [address] 02/14/2024 7:30 AM [place] [phone] Joanna Watts MD [facility] [place] [address] documented as of this encounter Visit Diagnoses Diagnosis Polyneuropathy Unspecified hereditary and idiopathic peripheral neuropathy Dysesthesia of scalp documented in this encounter Care Teams Wrapper Rewinder Relationship Specialty Start Date End Date Trinh Coates MD [facility] EV[facility] [place], [place] [id number] PCP - General 01/11/10 documented as of this encounter
--- OUTSIDE RECORDS SUMMARY | 2023-09-25 11:44 | XMS_ITS | Encounter Summary ---
Author Organization [facility] [place] [address] Care Team Providers Care Technical Services Rep Name Role Phone Trinh Coates MD Primary Care Provider [phone] Reason for Visit * Reason Comments Follow Up Surgery left arm lymphedena Encounter Details Date Type Department Care Team (Late st Contact Info) Description 03/12/2019 9:20 AM EST Office [place] [address] Jolene Azevedo APRN [facility] [place] [address] Surgery follow-up Social History Tobacco Use Types [...] and closure. Debridement of umbilicus. Deflation of lead solutions architect volume, This leaves 450 cc in the left tissue lead solutions architect and 500 cc on the right side Date of surgery: 04/26/17 Procedure(s): Bilateral breast reconstruction with attempted SALVADOR flaps, eventual tissue lead solutions architect placement with Menno Artoura 600 cc expanders placed bilaterally and [...] 01/22/2024 10:30 AM EST Appointment Mammography/[place] [address] Ladi Mendosa MD [facility] HEMATOLOGY [place] [address] 01/30/2024 11:30 AM EST Office Visit Dermatology at [place] [address] [place] [phone] Nilda Luis MD [facility] [place] [address] 02/14/2024 7:30 AM [place] [address] Joanna Watts MD [facility] [place] [address] documented as of this encounter Visit Diagnoses Diagnosis Surgery follow-up Follow-up examination, following unspecified surgery documented in this encounter Care Teams Technical Services Rep Relationship Specialty Start Date End Date Trinh Coates MD [facility] [address] [place] [address] PCP - General 01/11/10 documented as of this encounter
--- OUTSIDE RECORDS SUMMARY | 2023-09-25 11:44 | XMS_ITS | Encounter Summary ---
Author Organization [facility] Address [facility] [place] [address] Care Team Providers Care Hydrotechnical Specialist Name Role Phone Trinh Coates MD Primary Care Provider [phone] Encounter Details Date Type Department Care Team (Late st Contact Info) Description 09/01/2019 Telephone Radiation Oncology at [address] [address] Mayda Calvert RN Social History [...] 01/22/2024 10:30 AM EST Appointment Mammography/[place] [phone] Ladi Mendosa MD [facility] DR HEMATOLOGY [place] [address] 01/30/2024 11:30 AM EST Office Visit Dermatology at [address] [phone] Nilda Luis MD [facility] [place] [address] 02/14/2024 7:30 AM [place] [address] Joanna Watts MD [facility] [place] [address] documented as of this encounter Visit Diagnoses Not on filedocumented in this encounter Care Teams Hydrotechnical Specialist Relationship Specialty Start Date End Date Trinh Coates MD [facility] [address] [place] [address] PCP - General 01/11/10 documented as of this encounter
--- OUTSIDE RECORDS SUMMARY | 2023-09-25 11:44 | XMS_ITS | Encounter Summary ---
Author Organization [facility] Address [facility] [place] [address] Care Team Providers Care Phthalic Acid Purifier Name Role Phone Trinh Coates MD Primary Care Provider [phone] Encounter Details Date Type Department Care Team (Late st Contact Info) Description 09/11/2019 Telephone Dermatology at [facility] [address] [place] [address] Tino Mann MD [facility] DR LIDIA [place] [address] Social History Tobacco Use Types Packs/Day Years [...] Received call from Wendy Sandoval stating that [facility] sent her a letter stating that a prior authorization needed to be done for her Tristan and that a notification was sent to the Dermatology team, please start prior authorization. documented in this encounter Plan of Treatment Upcoming Encounters Date Type Department Care Team (Late st Contact Info) Description 01/22/2024 10:30 AM EST Appointment Mammography/[place] [address] Ladi Mendosa MD [facility] HEMATOLOGY [place] [address] 01/30/2024 11:30 AM EST Office Visit Dermatology at [place] [address] [place] [phone] Nilda Luis MD [facility] [place] [address] 02/14/2024 7:30 AM EST [place] [address] Joanna Watts MD [facility] [place] [address] documented as of this encounter Visit Diagnoses Not on filedocumented in this encounter Care Teams Phthalic Acid Purifier Relationship Specialty Start Date End Date Trinh Coates MD [facility] [address] [place] [address] PCP - General 01/11/10 documented as of this encounter
--- OUTSIDE RECORDS SUMMARY | 2023-09-25 11:44 | XMS_ITS | Encounter Summary ---
[place] [address] Care Team Providers Care Critical Care Nurse Name Role Phone Trinh Coates MD Primary Care Provider [phone] Reason for Visit * Reason Comments Prior Authorization Stelara 45mg/0.5mL S OSY Encounter Details Date Type Department Care Team (Late st Contact Info) Description 09/16/2019 Specialty [place] [address] Carrington Encarnacion Social History Tobacco Use Types [...] Carrington Encarnacion - 09/16/2019 9:36 AM EDT [facility], Prior Authorization Approval Medication Name: STELARA 45 MG/0.5 ML SUBCUTANEOUS SYRINGE Medication ID: [id number] Fillable at [facility]: No Approval Dates: 09/15/2019 to 09/14/2020 Insurance requirements/notes: MUST BE FILLED THROUGH [facility] Other Notes: None Case/Reference #: [id number] Approval notification Received via: Telephone Copay: Copay assistance: Copay Card Copay Notes: PATIENT CAN GET COPAY CARD IF PT DOES NOT HAVE COPAY CARD ALREADY Insurance mandated Pharmacy: [facility] staff will be reaching out to the patient to inform them of their medication's approval bytheir insurance. If applicable, a pharmacist will speak with the patient to offer our specialty pharmacy services and to arrange delivery of their medication. documented in this encounter Plan of Treatment Upcoming Encounters Date Type Department Care Team (Late st Contact Info) Description 01/22/2024 10:30 AM EST Appointment Mammography/[place] [address] Ladi Mendosa MD [facility] [place] [address] 01/30/2024 11:30 AM EST Office Visit Dermatology at [place] [address] [place] [phone] Nilda Luis MD [facility] [place] [address] 02/14/2024 7:30 AM EST [place] [phone] Joanna Watts MD [facility] [place] [address] documented as of this encounter Visit Diagnoses Not on filedocumented in this encounter Care Teams Critical Care Nurse Relationship Specialty Start Date End Date Trinh Coates MD [facility] [address] [place] [address] PCP - General 01/11/10 documented as of this encounter
--- OUTSIDE RECORDS SUMMARY | 2023-09-25 11:44 | XMS_ITS | Encounter Summary ---
Author Organization [facility] Address [facility] [place] [address] Care Team Providers Care Plater Helper Name Role Phone Trinh Coates MD Primary Care Provider [phone] Reason for Visit * Reason Comments Follow-up Encounter Details Date Type Department Care Team (Latest Contact Info) Description 01/07/2020 11:30 AM EST Office Visit Hematology [place] [address] Josias Barnett MD [facility] DR HEMATOLOGY/[place] [address] Malignant neoplasm of upper-outer quadrant of left [...] her mother's side. Oct 2017 Genetic testing: [employer]'s Common Hereditary Cancers Panel showed no mutation was detected. This means that eWndy does not carry a mutation in the genes detectable by this test. The following genes were evaluated for sequence changes and exonic deletions/duplications: APC, AMAURY, AXIN2, BARD1, BMPR1A, BRCA1, BRCA2, BRIP1, CDH1, CDKN2A (p14ARF), CDKN2A ([id number]), CHEK2, CTNNA1, DICER1, EPCAM (EPCAM: Deletion/duplication testing only (NM_[id number]), GREM1 (GREM1: Promoter region deletion/duplication testing only.), KIT, MEN1, MLH1, MSH2, MSH3, MSH6, MUTYH, NBN, NF1, PALB2, PDGFRA, PMS2, POLD1, POLE, PTEN, RAD50, RAD51C, RAD51D, SDHB, SDHC, SDHD, SMAD4, SMARCA4, STK11, TP53, TSC1, TSC 2, VHL. The following genes were evaluated for sequence changes only: HOXB13 (c.251G>A, p.Hqi77Khm variant only), NTHL1 (NTHL1: Deletion/duplication analysis is not offered for this gene (NM_[id number]), and SDHA. A variant of uncertain significance in the AMAURY gene, specifically c.5727G>A (p.[id number]), was detected. Interval Hx/ROS: Today reports that [...] AM EST Appointment Mammography/DXA at [place] [phone] Ladi Mendosa MD [facility] [place]AT[place] [address] 01/30/2024 11:30 AM EST Office Visit Dermatology at [address] [address] Nilda Luis MD [facility] [address] 02/14/2024 7:30 AM EST [place] [address] Joanna Watts MD [facility] [address] documented as of this encounter Visit Diagnoses Diagnosis Malignant neoplasm of upper-outer quadrant of left breast in female, 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
--- OUTSIDE RECORDS SUMMARY | 2023-09-25 11:44 | XMS_ITS | Encounter Summary ---
Author Organization [facility] Address [facility] [place] [address] Care Team Providers Care Dining Car Steward Name Role Phone Trinh Coates MD Primary Care Provider [phone] Reason for Visit * Reason Comments Medication Refill Encounter Details Date Type Department Care Team (Late st Contact Info) Description 08/20/2019 Refill Dermatology at [facility] [address] [place] [address] Tino Mann MD [facility] [place] [address] Psoriasis Social History Tobacco Use Types Packs/Day [...] AM EST Appointment Mammography[place] [address] Ladi Mendosa MD [facility] HEMATOLOGY [place] [address] 01/30/2024 11:30 AM EST Office Visit Dermatology at [facility] [address] [place] [phone] Nilda Luis MD [facility] [place] [address] 02/14/2024 7:30 AM EST [place] [address] Joanna Watts MD [facility] [address] documented as of this encounter Visit Diagnoses Diagnosis Psoriasis Other psoriasis documented in this encounter Care Teams Dining Car Steward Relationship Specialty Start Date End Date Trinh Coates MD [facility] [address] [place] [address] PCP - General 01/11/10 documented as of this encounter
--- OUTSIDE RECORDS SUMMARY | 2023-09-25 11:44 | XMS_ITS | Encounter Summary ---
Author Organization [facility] [place] [address] Care Team Providers Care Buttonhole Machine Operator Name Role Phone Trinh Coates MD Primary Care Provider [phone] Reason for Visit * Reason Comments Medication Refill Encounter Details Date Type Department Care Team (Late st Contact Info) Description 03/17/2020 Refill Dermatology at [facility] [address] [place] [address] Tino Mann MD [facility] DR LIDIA AMEZCUA[place] [address] Psoriasis Social History Tobacco Use Types Packs/Day [...] 01/22/2024 10:30 AM EST Appointment Mammography[place] [address] Ladi Mendosa MD [facility] HEMATOLOGY [place] [address] 01/30/2024 11:30 AM EST Office Visit Dermatology at [facility] [address] [place] [address] Nilda Luis MD [facility] [place] [address] 02/14/2024 7:30 AM [place] [phone] Joanna Watts MD [facility] [place] [address] documented as of this encounter Visit Diagnoses Diagnosis Psoriasis Other psoriasis documented in this encounter Care Teams Buttonhole Machine Operator Relationship Specialty Start Date End Date Trinh Coates MD [address] [facility] [address] [place] [address] PCP - General 01/11/10 documented as of this encounter
--- OUTSIDE RECORDS SUMMARY | 2023-09-25 11:44 | XMS_ITS | Encounter Summary ---
Author Organization [facility] Address [facility] [place] [address] Care Team Providers Care Tool Mechanic Name Role Phone Trinh Coates MD Primary Care Provider [phone] Reason for Visit * Reason Comments Psoriasis Scalp pruritus Encounter Details Date Type Department Care Team (Late st Contact Info) Description 01/07/2019 9:15 AM EST Office Visit Dermatology at 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 female, [...] documentation in this encounter. Nilda Luis MD [facility] Department of Surgery [facility] documented in this encounter Plan of Treatment Upcoming Encounters Date Type Department Care Team (Late st Contact Info) Description 01/22/2024 10:30 AM EST Appointment Mammography/DXA at [place] [phone] Ladi Mendosa MD [facility] HEMATOLOGY [place] [address] 01/30/2024 11:30 AM EST Office Visit Dermatology at [address] [phone] Nilda Luis MD [facility] [place] [address] 02/14/2024 7:30 AM EST Appointment [place] [address] Joanna Watts MD [facility] [place] [address] documented as of this encounter Visit Diagnoses Diagnosis Folliculitis Other specified disease of hair and hair follicles Psoriasis Other psoriasis documented in this encounter Care Teams Tool Mechanic Relationship Specialty Start Date End Date Trinh Coates MD [address] [place] [address] PCP - General 01/11/10 documented as of this encounter
--- OUTSIDE RECORDS SUMMARY | 2023-09-25 11:44 | XMS_ITS | Encounter Summary ---
Author Organization [facility] [place] [address] Care Team Providers Care Policy Specialist Name Role Phone Trinh Coates MD Primary Care Provider [phone] Reason for Visit * Consultation (Urgent) - Specialty Diagnoses / Procedures Referred By Contrenan t Referred To Contact Nephrology Diagnoses Essential (primary) hypertension Chronic kidney disease, stage 3 (moderate) HYPERTENSION, CHRONIC KIDNEY DISEASE STAGE 3 Trinh Coates MD [facility] [address] [place] [address] [facility] [address] [place] [phone] Referral ID Status Reason Start Date Expiration Date V isits Requested Visits Authorized [id number] Consult, Test & Treat [facility] PCP Updated and/or Approved 12/13/2018 12/13/2019 6 6 Encounter Details Date Type Department Care Team (Latest Contact Info) Description 01/23/2019 2:00 PM EST Office Visit Neph[place] [address] Zackery Dawson MD [facility] [place] [address] Hypertension, unspecified type Social History Tobacco [...] - 01/23/2019 2:00 PM EST PATIENT: Wendy Sandoval : 1965 REASON FOR CONSULTATION: Creatinine fluctuation [...] Social history: Patient works from home for [employer]. Denies tobacco/Illicit Drug Use Family History Denies [...] Mediport Removal 01/25/2018 Scooby Muñoz Carlos Alberto, DONOR SUPPORT TECHNICIAN [facility] INTERVENTIONL RAD ??? PRG EMG, LARYNX N/A 11/02/2015 FACIAL NERVE MONITORING, SETUP LARYNGEAL performed by Valentina Lucas MD at [facility] OR ??? PRO BREAST RECONSTRUC W FREE FLAP Bilateral 04/26/2017 @BREAST RECONSTRUCTION W/ FREE FLAP, SUSAN (WRVU 42.58) performed [facility] ??? PRO BREAST RECONSTRUC W FREE FLAP, W/O IMPLANT Bilateral 12/12/2017 @BREAST RECONSTRUCTION W/ LAT DORSI FLAP,W/O IMPLANT, SUSAN (WRVU 23.36) performed by Andre Gimenez MD at [facility] OR ??? PRO BREAST RECONSTRUC W TISS EXPANDR Bilateral 04/26/2017 BREAST RECONSTRUCTION, IMMEDIATE OR DELAYED, W/ [place] PROGRAM TECHNICIAN, INCLUDING SUBSEQUENT EXPANSION (WRVU 18.5) performed by Andre Gimenez MD at [facility] OR ? ? PRO DEBRIDEMENT SUBCUTANEOUS TISSUE 20 SQCM/< 06/22/2017 DEBRIDEMENT SKIN AND SUBCU, BREAST (WRVU 1.01) performed by Andre Gimenez MD at [facility] OR ??? PRO EXPLORE PARATHYROID GLANDS N/A 11/02/2015 PARATHYROIDECTOMY OR EXPLORATION OF PARATHYROID(S) performed by Valentina Lucas MD at [facility] OR ? ? PRO FULL THICK GRFT TRUNK <20 SQCM Bilateral 04/26/2017 FTSG, FREE, DIR CLOSE DONOR SITE, TRUNK, 20 SQ CM OR LESS (WRVU 9.15) performed by Andre Gimenez MD at [facility] OR ??? PRO INCISION OF LYMPH CHANNELS Left 10/18/2018 INCISION & DRAINAGE LYMPHOCELE (WRVU 6.81) performed by Andre Gimenez MD at [facility] OR ??? PRO IV INJ TO TEST BLOOD FLOW IN FLAP/GRAFT Left 10/18/2018 IV INJECTION, AGENT TO TEST VASC FLOW IN FLAP OR GRAFT, ENT (WRVU 1.95) performed by Andre Gimenez MD at [facility] OR ??? PRO MASTECTOMY, SIMPLE, COMPLETE Bilateral 04/26/2017 MASTECTOMY, SIMPLE, COMPLETE-SUSAN (WRVU 15.85) performed by Jolie Menendez MD at [facility] OR ??? PRO PARTIAL REMOVAL OF RIB Bilateral 04/26/2017 EXCISION OF RIB, PARTIAL (WRVU 7.26) performed by Andre Gimenez MD at [facility] OR ??? PRO REMOVE ARMPITS LYMPH NODES COMPLT Left 04/26/2017 LYMPHADENECTOMY, AXILLARY, COMPLETE (WRVU 13.87) performed by Jolie Menendez MD at [facility] OR ??? PRO REPLACE [place] PROGRAM TECHNICIAN Bilateral 12/12/2017 [place] PROGRAM TECHNICIAN REPLACEMENT, WITH PERMANENT PROSTHESIS, SUSAN (WRVU 8.01) performed by Andre Gimenez MD at [facility] OR ??? PRO REVISE BREAST RECONSTRUCTION Left 06/22/2017 REVISION OF RECONSTRUCTED BREAST (WRVU 10.41) performed by Andre Gimenez MD at [facility] OR ??? PRO REVISE BREAST RECONSTRUCTION Bilateral 12/12/2017 REVISION OFRECONSTRUCTED BREAST, SUSAN (WRVU 10.41) performed by Andre Gimenez MD at [facility] OR ??? PRO THYMECTOMY, TRANSCERVICAL N/A 11/02/2015 THYMECTOMY, TRANSCERVICAL APPROACH performed by Valentina Lucas MD at [facility] OR ??? SHOULDER SURGERY Left ??? UMBILICAL [...] Zackery Dawson MD, MPH Section of Nephrology #[id number] documented in this encounter Plan of Treatment Upcoming Encounters Date Type Department Care Team (Late st Contact Info) Description 01/22/2024 10:30 AM EST Appointment Mammography/[place] [address] Ladi Mendosa MD [facility] HEMATOLOGY [place] [address] 01/30/2024 11:30 AM EST Office Visit Dermatology at [facility] [address] [phone] Nilda Luis MD [facility] [place] [address] 02/14/2024 7:30 AM EST [place] [phone] Joanna Watts MD [facility] [place] [address] documented as of this encounter Procedures Procedure [...] Panel (non-fasting) (09/19/2019 10:05 AM EDT) Glucose 96 65 - 199 mg/dL [facility] Comment:Diabetes: >=200 mg/d L plus symptoms Blood Urea Nitrogen 37(H) 8 - 18 mg/dL [facility] Creatinine 1.65(H) 0.70 - 1.20 mg/dL [facility] Sodium 141 135 - 145 mmol/L [facility] Potassium 4.9 3.5 - 5.0 mmol/L [facility] Comment: Please note: ??Patients with WBC >100,000 may have falsely elevated Potassium levels. ??For accurate Potassium quantification in these patients send serum separator tube (gold top) for subsequent determinations. ??Contact the Clinical Chemistry Laboratory if there are any questions. Chloride 107 98 - 107 mmol/L [facility] Carbon Dioxide 22 22 - 31 mmol/L [facility] Anion Gap 12 5 - 15 mmol/L [facility] Calcium 9.3 8.5 - 10.5 mg/dL [facility] Est Glomerular Filtration Rate 34(L) >=60 mL/min/1. 73 m?? [facility] Comment: The eGFR was calculated using the CKD-EPI equation. As with all creatinine based estimates of kidney function, eGFR values calculated with the CKD-EPI equation are not accurate in patients with acute kidney failure, extremes of body mass or the acutely ill. http://Knotch/Acamicankf eGFR 40(L) >=60 mL/min/1. 73 m?? [facility] Comment: The eGFR was calculated using the CKD-EPI equation. As with all creatinine based estimates of kidney function, eGFR values calculated with the CKD-EPI equation are not accurate in patients with acute kidney failure, extremes of body mass or the acutely ill. http://Knotch/DHnkf Blood specimen (specimen) 09/19/2019 10:05 AM EDT 09/19/2019 10:20 AM EDT Narrative Resulting Agency Comment Spec In Lab Zackery Dawson MD CHEMISTRY ORDERABLES [facility] [place] [address] * (ABNORMAL) U Albumin/Cre Ratio (01/23/2019 2:00 PM EST) Albumin / Creatinin Ratio, Urine 318(H) 0 - 29 mcg/mg Cr [facility] Comment: Reference Ranges: <30 mcg/mg: [...] Supplements (2012) 2, 357? 362 Albumin, Urine 429.8 mg/L [facility] Creatinine, Urine 135 mg/dL [facility] Urine specimen (specimen) 01/23/2019 2:00 PM EST 01/23/2019 3:57 PM EST Narrative Resulting Agency Comment Spec In Lab Zackery Dawson MD URINE ORDERABLES Performing Organization Address [facility] Co de Phone Number [facility] [place] [address] * (ABNORMAL) Protein/Creatinine Ratio, urine (01/23/2019 2:00 PM EST) Creatinine, Urine 135 mg/dL [facility] Protein, Urine 64(H) 0 - 12 mg/dL [facility] Protein / Creatinine Ratio, Urine 0.5 ratio [facility] Urine specimen (specimen) 01/23/2019 2:00 PM EST 01/23/2019 3:57 PM EST Narrative Resulting Agency Comment Spec In Lab Zackery Dawson MD URINE ORDERABLES Performing Organization Address [facility] Co de Phone Number [facility] [place] [address] * (ABNORMAL) Urinalysis without microscopic (01/23/2019 2:00 PM EST) Glucose, Urine Dipstick Negative Negative mg/dL [facility] Protein, Urine Dipstick 100(A) Negative mg/dL [facility] Bilirubin, Urine Dipstick Negative Negative mg/dL [facility] Comment: Clinical correlation required for positive Urine Bilirubin results as false positive may occur with some drugs and drug related products. If a false positive is suspected a serum total bilirubin should be considered if clinically indicated. Urobilinogen, Urine Dipstick Normal Normal mg/dL [facility] pH, Urn (dipstick) 5.0 5.0 - 8.0 [facility] Blood, Urine Dipstick Negative Negative mg/dL [facility] Ketone, Urine Dipstick Negative Negative mg/dL [facility] Nitrite, Urine Dipstick Negative Negative [facility] Leukocytes, Urine Dipstick Negative Negative [facility] Appearance, Urine Dipstick Cloudy Clear [facility] Specific Vera Urine Automated 1.019 1.002 - 1.030 [facility] Color, Urine Dipstick Yellow Yellow [facility] Urine specimen (specimen) 01/23/2019 2:00 PM EST 01/23/2019 3:57 PM EST Narrative Resulting Agency Comment Spec In Lab Zackery Dawson MD URINE ORDERABLES [facility] [place] [address] documented in this encounter Visit Diagnoses Diagnosis Hypertension, unspecified type documented in this encounter Care Teams Policy Specialist Relationship Specialty Start Date End Date Trinh Coates MD [address] [place] [address] PCP - General 01/11/10 documented as of this encounter
--- OUTSIDE RECORDS SUMMARY | 2023-09-25 11:44 | XMS_ITS | Encounter Summary ---
Author Organization [facility] Address [facility] [place] [address] Care Team Providers Care Microsoft Dynamics Developer Name Role Phone Trinh Coates MD Primary Care Provider [phone] Encounter Details Date Type Department Care Team (Late st Contact Info) Description 01/14/2020 [place] [address] Antwon Dowell MD [facility] [place] [address] Social History Tobacco Use Types Packs/Day Years [...] can you please send lab work ??to [facility]. Faxed this am. documented in this encounter Plan of Treatment Upcoming Encounters Date Type Department Care Team (Late st Contact Info) Description 01/22/2024 10:30 AM EST Appointment Mammography/[place] [phone] Ladi Mendosa MD [facility] [place] [address] 01/30/2024 11:30 AM EST Office Visit Dermatology at [place] [address] [place] [phone] Nilda Luis MD [facility] [place] [address] 02/14/2024 7:30 AM EST [place] [address] Joanna Watts MD [facility] [place] [address] documented as of this encounter Visit Diagnoses Not on filedocumented in this encounter Care Teams Microsoft Dynamics Developer Relationship Specialty Start Date End Date Trinh Coates MD [facility] [address] [place] [address] PCP - General 01/11/10 documented as of this encounter
--- OUTSIDE RECORDS SUMMARY | 2023-09-25 11:44 | XMS_ITS | Encounter Summary ---
Author Organization [facility] [place] [address] Care Team Providers Care Storage Specialist Name Role Phone Trinh Coates MD Primary Care Provider [phone] Reason for Referral * Consultation (Routine) - Canceled Specialty Diagnoses / Procedures Referred By Diamante marin Referred To Contact Neurology Diagnoses S/P breast reconstruction, bilateral Numbness and tingling in left arm Mali Lakhani MD [facility] [place] [address] [facility] [address] [place] [phone] Referral ID Status Reason Start Date Expiration Date V isits Requested Visits Authorized [id number] Canceled Consult, Test & Treat 04/16/2019 04/15/2020 1 1 Reason for Visit * Reason Comments Follow Up Surgery rediscuss lympnoid t ransfer left arm Encounter Details Date Type Department Care Team (Late st Contact Info) Description 04/16/2019 11:45 AM EST Office [place] [address] Mali Lakhani MD [facility] [place] [address] Surgery follow-up; S/P breast reconstruction, [...] and closure. Debridement of umbilicus. Deflation of elementary principal volume, This leaves 450 cc in the left tissue elementary principal and 500 cc on the right side Date of surgery: 04/26/17 Procedure(s): Bilateral breast reconstruction with attempted SALVADOR flaps, eventual tissue elementary principal placement with [place] Artoura 600 cc expanders placed bilaterally and [...] 01/22/2024 10:30 AM EST Appointment Mammography/[place] [address] Ladi Mendosa MD [facility] [place] [address] 01/30/2024 11:30 AM EST Office Visit Dermatology at [facility] [address] [place] [address] Nilda Luis MD [facility] [place] [address] 02/14/2024 7:30 AM EST [place]oint[place] [address] Joanna Watts MD [facility] [place] [address] Scheduled Referrals Name Type Priority Associated Diagnoses [...] lymphedema documented in this encounter Care Teams Storage Specialist Relationship Specialty Start Date End Date Trinh Coates MD [facility] [address] [place] [address] PCP - General 01/11/10 documented as of this encounter
--- OUTSIDE RECORDS SUMMARY | 2023-09-25 11:44 | XMS_ITS | Encounter Summary ---
Author Organization [facility] Address [facility] [place] [address] Care Team Providers Care Order Expediter Name Role Phone Trinh Coates MD Primary Care Provider [phone] Encounter Details Date Type Department Care Team (Late st Contact Info) Description 07/09/2019 12:05 AM EDT Ancillary Procedure [place] [phone] Emily Choi MD [facility] [place] [address] Social History Tobacco Use Types Packs/Day Years [...] 01/22/2024 10:30 AM EST Appointment Mammography/[place] [phone] Ladi Mendosa MD [facility] [address] [place] [address] 01/30/2024 11:30 AM EST Office Visit Dermatology at [facility] [address] [place] [address] Nilda Luis MD [facility] [place] [address] 02/14/2024 7:30 AM EST [place] [phone] Joanna Watts MD [facility] [place] [place] [address] documented as of this encounter Procedures Procedure Name Priority Date/Time Associated Diagnosis Comments FILM LIBRARY STORAGE ONLY NUCLEAR MEDICINE Routine 07/09/2019 12:05 AM EDT documented in this encounter Results * Film Library- Storage Only nuclear medicine (07/09/2019 12:05 AM EDT) Narrative [facility] - 07/10/2019 6:52 AM EDT This exam is auto-finalizing. It's purpose is for storage only. Emily Choi MD IMG FILM LIBRARY ORD ERABLES [place], [place] documented in this encounter Visit Diagnoses Not on filedocumented in this encounter Care Teams Order Expediter Relationship Specialty Start Date End Date Trinh Coates MD [facility] [address] [place] [address] PCP - General 01/11/10 documented as of this encounter
--- OUTSIDE RECORDS SUMMARY | 2023-09-25 11:44 | XMS_ITS | Encounter Summary ---
Author Organization [facility] [place] [address] Care Team Providers Care Round Up Ring Hand Name Role Phone Trinh Coates MD Primary Care Provider [phone] Encounter Details Date Type Department Care Team (Latest Contact Info) Description 12/06/2018 10:54 AM EDT - 12/06/2018 11:59 PM EDT Hospital Encounter [place] [address] Malignant neoplasm of upper-outer quadrant of left [...] daily 03/27/2014 024 anastrozole (ARIMIDEX) 1 mg TabletIndications:Stan bañuelos neoplasm [...] daily. 01/23/2019 gabapentin (NEURONTIN) 300 mg CapsuleIndications:Elaine rojas neoplasm [...] 01/22/2024 10:30 AM EST Appointment Mammography/[place] [address] Ladi Mendosa MD [facility] [place]AT[place] [address] 01/30/2024 11:30 AM EST Office Visit Dermatology at [facility] [address] [place] [phone] Nilda Luis MD [facility] [place] [address] 02/14/2024 7:30 AM EST Appointment Radiology at [place] [phone] Joanna Watts MD [facility] [address] documented as of this encounter [...] AM EDT) Follicle Stimulating Hormone 34.3 mlU/ML [facility] Comment: Reference Ranges: Females: Follicular: ? 3.5-12.5 mIU/mL Ovulation: ?4.7-21.5 mIU/mL Luteal: ? 1.7-7.7 mIU/mL Postmenopausal: 25.8-134.8 mIU/mL Blood specimen (specimen) 12/06/2018 11:12 AM EDT 12/06/2018 11:35 AM EDT Narrative Resulting Agency Comment Spec In Lab Josias Barnett MD CHEMISTRY ORDERABLES Performing Organization Address [facility] de Phone Number [facility] [place] [address] * Estradiol (12/06/2018 11:12 AM EDT) Estradiol <5 pg/mL [facility] Comment: Reference ranges: Males: Adult: ? 11 to 43 pg/mL Females: Non- females: ?Follicular: ??12-233 pg/mL ?Ovulation: ?? 41-398 pg/mL ?Luteal: ?22-341 pg/mL ?Postmenopausal: ?? <5 -138 pg/mL females: ?1st trimester: ??154-3243 pg/mL ?2nd trimester: ??1561-97979 pg/mL ?3rd trimester: ??8525- >65602 pg/mL Blood specimen (specimen) 12/06/2018 11:12 AM EDT 12/06/2018 11:35 AM EDT Narrative Resulting Agency Comment Spec In Lab Josias Barnett MD CHEMISTRY ORDERABLES Performing Organization Address [facility] [[email or web address]] Co de Phone Number [facility] [place] [address] documented in this encounter Visit Diagnoses Diagnosis Malignant neoplasm of upper-outer quadrant of left breast in female, estrogen receptor positive documented in this encounter Care Teams Round Up Ring Hand Relationship Specialty Start Date End Date Trinh Coates MD [address] [place] [address] PCP - General 01/11/10 documented as of this encounter
--- OUTSIDE RECORDS SUMMARY | 2023-09-25 11:44 | XMS_ITS | Encounter Summary ---
Author Organization [facility] Address [facility] [place] [address] Care Team Providers Care Sound Recording Technician Name Role Phone Trinh Coates MD Primary Care Provider Encounter Details Date Type Department Care Team (Latest Contact Info) Description 09/19/2019 11:00 AM EDT Office Visit Neph[place] [address] Zackery Dawson MD [facility] [place] [address] Hypertension, unspecified type; Aldosteronism; GREGORY (acute kidney [...] IR Drain Check/Change/Remove 11/20/2017 Marcos Dey MD [facility] INTERVENTIONL RAD ??? IR MEDIPORT REMOVAL 01/25/2018 IR Mediport Removal 01/25/2018 Scooby Muñoz, AARTI [facility] INTERVENTIONL RAD ??? PRG EMG, LARYNX N/A 11/02/2015 FACIAL NERVE MONITORING, SETUP LARYNGEAL performed by Valentina Lucas MD at [facility] OR ??? PRO BREAST RECONSTRUC W FREE FLAP Bilateral 04/26/2017 @BREAST RECONSTRUCTION W/ FREE FLAP, SUSAN (WRVU 42.58) [facility]?? PRO BREAST RECONSTRUC W FREE FLAP, W/O IMPLANT Bilateral 12/12/2017 @BREAST RECONSTRUCTION W/ LAT DORSI FLAP,W/O IMPLANT, SUSAN (WRVU 23.36) performed by Andre Gimenez MD at [facility] OR ??? PRO BREAST RECONSTRUC W TISS EXPANDR Bilateral 04/26/2017 BREAST RECONSTRUCTION, IMMEDIATE OR DELAYED, W/ TISSUE ROLL SCALE WORKER, INCLUDING SUBSEQUENT EXPANSION (WRVU 18.5) performed by Andre Gimenez MD at [facility] OR ? ? PRO DEBRIDEMENT [...] MEDICAL CENTER OR ??? PRO REPLACE TISSUE ROLL SCALE WORKER Bilateral 12/12/2017 TISSUE ROLL SCALE WORKER REPLACEMENT, WITH PERMANENT PROSTHESIS, SUSAN (WRVU [...] APPROACH performed by Valentina Lucas MD at [facility] OR ??? SHOULDER SURGERY Left [...] Zackery Dawson MD, MPH Section of Nephrology #[id number] documented in this encounter Plan of Treatment Upcoming Encounters Date Type Department Care Team (Late st Contact Info) Description 01/22/2024 10:30 AM EST Appointment Mammography/[place] [address] Ladi Mendosa MD [facility] HEMATOLOGY [place] [address] 01/30/2024 11:30 AM EST Office Visit Dermatology at [facility] [address] [place] [phone] Nilda Luis MD [facility] DERMATOLOGY [place], [place] [phone] 02/14/2024 7:30 AM EST Appointment Radiology at [place] [phone] Joanna Watts MD [facility] NEUROSURGERY [place], [place] [phone] documented as of this encounter Procedures Procedure Name Priority Date/Time Associated Diagnosis Comments HC PROTEIN, QUANTITATIVE, URINE Routine 09/19/2019 11:05 AM EDT Hypertension, unspecified type documented in this encounter Results * (ABNORMAL) Protein/Creatinine Ratio, urine (09/19/2019 11:05 AM EDT) Creatinine, Urine 92 mg/dL [facility] Protein, Urine 36(H) 0 - 12 mg/dL [facility] Protein / Creatinine Ratio, Urine 0.4 ratio [facility] Urine specimen (specimen) 09/19/2019 11:05 AM EDT 09/19/2019 11:34 AM EDT Narrative Resulting Agency Comment Spec In Lab Zackery Dawson MD URINE ORDERABLES [facility] [place] [address] documented in this encounter Visit Diagnoses Diagnosis Hypertension, unspecified type Aldosteronism Hyperaldosteronism, unspecified GREGORY (acute kidney injury) Acute kidney failure, unspecified documented in this encounter Care Teams Sound Recording Technician Relationship Specialty Start Date End Date Trinh Coates MD [address] [facility] [address] [place] [address] PCP - General 01/11/10 documented as of this encounter
--- OUTSIDE RECORDS SUMMARY | 2023-09-25 11:44 | XMS_ITS | Encounter Summary ---
Author Organization [facility] Address 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 Adjuvant chemo then given, followed by advertising campaign manager exchange for implants. She is taking [...] MLD effective. Recent return from trip to [place], [place] where she spent a lot of [...] IR Drain Check/Change/Remove 11/20/2017 Marcos Dey MD [facility] INTERVENTIONL RAD ??? IR MEDIPORT REMOVAL 01/25/2018 IR Mediport Removal 01/25/2018 Scooby Muñoz, AARTI [facility] INTERVENTIONL RAD ??? PRG EMG, LARYNX N/A 11/02/2015 FACIAL NERVE MONITORING, SETUP LARYNGEAL performed by Valentina Lucas MD at [facility] OR ??? PRO BREAST RECONSTRUC W FREE FLAP Bilateral 04/26/2017 @BREAST RECONSTRUCTION W/ FREE FLAP, SUSAN (WRVU 42.58) performed by [facility] ??? PRO BREAST RECONSTRUC W FREE FLAP, W/O IMPLANT Bilateral 12/12/2017 @BREAST RECONSTRUCTION W/ LAT DORSI FLAP,W/O IMPLANT, SUSAN (WRVU 23.36) performed by Andre Gimenez MD at [facility] OR ??? PRO BREAST RECONSTRUC W TISS EXPANDR Bilateral 04/26/2017 BREAST RECONSTRUCTION, IMMEDIATE OR DELAYED, W/ TISSUE GRAIN OILSEED OR PASTURE FARM WORKER, INCLUDING SUBSEQUENT EXPANSION (WRVU 18.5) performed by Andre Gimenez MD at [facility] OR ? ? PRO DEBRIDEMENT SUBCUTANEOUS TISSUE 20 SQCM/< 06/22/2017 DEBRIDEMENT SKIN AND SUBCU, BREAST (WRVU 1.01) performed by Andre Gimenez MD at [facility] OR ??? PRO EXPLORE PARATHYROID GLANDS N/A 11/02/2015 PARATHYROIDECTOMY OR EXPLORATION OF PARATHYROID(S) performed by Valentina Lucas MD at [facility] OR ? ? PRO FULL THICK GRFT TRUNK <20 SQCM Bilateral 04/26/2017 FTSG, FREE, DIR CLOSE DONOR SITE, TRUNK, 20 SQ CM OR LESS (WRVU 9.15) performed by Andre Gimenez MD at [facility] OR ??? PRO INCISION OF LYMPH CHANNELS Left 10/18/2018 INCISION & DRAINAGE LYMPHOCELE (WRVU 6.81) performed by Andre Gimenez MD at [facility] OR ??? PRO IV INJ TO TEST BLOOD FLOW IN FLAP/GRAFT Left 10/18/2018 IV INJECTION, AGENT TO TEST VASC FLOW IN FLAP OR GRAFT, ENT (WRVU 1.95) performed by Andre Gimenez MD at [facility] OR ??? PRO MASTECTOMY, SIMPLE, COMPLETE Bilateral 04/26/2017 MASTECTOMY, SIMPLE, COMPLETE-SUSAN (WRVU 15.85) performed by Jolie Menendez MD at [facility] OR ??? PRO PARTIAL REMOVAL OF RIB Bilateral 04/26/2017 EXCISION OF RIB, PARTIAL (WRVU 7.26) performed by Andre Gimenez MD at [facility] OR ??? PRO REMOVE ARMPITS LYMPH NODES COMPLT Left 04/26/2017 LYMPHADENECTOMY, AXILLARY, COMPLETE (WRVU 13.87) performed by Jolie Menendez MD at [facility] OR ??? PRO REPLACE TISSUE GRAIN OILSEED OR PASTURE FARM WORKER Bilateral 12/12/2017 TISSUE GRAIN OILSEED OR PASTURE FARM WORKER REPLACEMENT, WITH PERMANENT PROSTHESIS, SUSAN (WRVU 8.01) performed by Andre Gimenez MD at [facility] OR ??? PRO REVISE BREAST RECONSTRUCTION Left 06/22/2017 REVISION OF RECONSTRUCTED BREAST (WRVU 10.41) performed by Andre Gimenez MD at [facility] OR ??? PRO REVISE BREAST RECONSTRUCTION Bilateral 12/12/2017 REVISION OFRECONSTRUCTED BREAST, SUSAN (WRVU 10.41) performed by Andre Gimenez MD at [facility] OR ??? PRO THYMECTOMY, TRANSCERVICAL N/A 11/02/2015 THYMECTOMY, TRANSCERVICAL APPROACH performed by Valentina Lucas MD at [facility] OR ??? SHOULDER SURGERY Left ??? 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
--- OUTSIDE RECORDS SUMMARY | 2023-09-25 11:44 | XMS_ITS | Encounter Summary ---
Author Organization [facility] [place] [address] Care Team Providers Care Surface Plate Finisher Name Role Phone Trinh Coates MD Primary Care Provider [phone] Encounter Details Date Type Department Care Team (Late st Contact Info) Description 07/27/2019 Ancillary Procedure [place] [phone] Trinh Coates MD [facility] [address] [facility] [address] [place] [address] Social History Tobacco Use Types [...] 01/22/2024 10:30 AM EST Appointment Mammography/[place] [address] aLdi Mendosa MD [facility] [place] [address] 01/30/2024 11:30 AM EST Office Visit Dermatology at [facility] [address] [place] [address] Nilda Luis MD [facility] [place] [address] 02/14/2024 7:30 AM [place] [phone] Joanna Watts MD [facility] [place] [address] documented as of this encounter Procedures Procedure Name Priority Date/Time Associated Diagnosis Comments FILM LIBRARY STORAGE ONLY CT HEAD Routine 07/27/2019 12:00 AM EDT documented in this encounter Results * Film Library- Storage Only CT Head (07/27/2019 12:00 AM EDT) Narrative [facility] - 03/30/2022 4:02 PM EST This exam is auto-finalizing. It's purpose is for storage only. Trinh Coates MD [facility] [place] [place] documented in this encounter Visit Diagnoses Not on filedocumented in this encounter Care Teams Surface Plate Finisher Relationship Specialty Start Date End Date Trinh Coates MD [address] [place] [address] [address] [place] [address] PCP - General 01/11/10 documented as of this encounter
--- OUTSIDE RECORDS SUMMARY | 2023-09-25 11:44 | XMS_ITS | Encounter Summary ---
Author Organization [facility] Address [facility] [place] [address] Care Team Providers Care Independent Living Specialist Name Role Phone Trinh Coates MD Primary Care Provider [phone] Encounter Details Date Type Department Care Team (Latest Contact Info) Description 09/19/2019 10:00 AM EDT Laboratory Appointment Lab [address] [place] [phone] Hypertension, unspecified type Social History Tobacco Use [...] 01/22/2024 10:30 AM EST Appointment Mammography/[place] [phone] Ladi Mendosa MD [facility] HEMATOLOGY [place] [address] 01/30/2024 11:30 AM EST Office Visit Dermatology at [facility] [address] [place] [phone] Nilda Luis MD [facility] [place] [address] 02/14/2024 7:30 AM EST Appointment [place] [phone] Joanna Watts MD [facility] [place] [address] documented as of this encounter Procedures Procedure Name Priority Date/Time Associated Diagnosis Comments MAGNESIUM Routine 09/19/2019 10:05 AM EDT HC VENIPUNCTURE Routine 09/19/2019 10:05 AM EDT Hypertension, unspecified type documented in this encounter Results * Magnesium (09/19/2019 10:05 AM EDT) Pathologist [facility] Magnesium 0.86 0.69 - 1.07 mmol/L [facility] Blood specimen (specimen) Venous Draw / Unknown 09/19/2019 10:05 AM EDT 09/19/2019 10:28 AM EDT Narrative Resulting Agency Comment Spec In Lab Zackery Dawson MD CHEMISTRY ORDERABLES [facility] [place] [address] * (ABNORMAL) Basic Metabolic Panel (non-fasting) (09/19/2019 10:05 AM EDT) Pathologist [facility] Glucose 96 65 - 199 mg/dL [facility] Comment:Diabetes: >=200 mg/d L plus symptoms Blood Urea Nitrogen 37(H) 8 - 18 mg/dL [facility] Creatinine 1.65(H) 0.70 - 1.20 mg/dL [facility] Sodium 141 135 - 145 mmol/L [facility] Potassium 4.9 3.5 - 5.0 mmol/L [facility] Comment: Please note: ??Patients with WBC >100,000 may have falsely elevated Potassium levels. ??For accurate Potassium quantification in these patients send serum separator tube (gold top) for subsequent determinations. ??Contact the Clinical Chemistry Laboratory if there are any questions. Chloride 107 98 - 107 mmol/L [facility] Carbon Dioxide 22 22 - 31 mmol/L [facility] Anion Gap 12 5 - 15 mmol/L [facility] Calcium 9.3 8.5 - 10.5 mg/dL [facility] Est Glomerular Filtration Rate 34(L) >=60 mL/min/1. 73 m?? [facility] Comment: The eGFR was calculated using the CKD-EPI equation. As with all creatinine based estimates of kidney function, eGFR values calculated with the CKD-EPI equation are not accurate in patients with acute kidney failure, extremes of body mass or the acutely ill. [email or web address]AHnkf eGFR 40(L) >=60 mL/min/1. 73 m?? [facility] Comment: The eGFR was calculated using the CKD-EPI equation. As with all creatinine based estimates of kidney function, eGFR values calculated with the CKD-EPI equation are not accurate in patients with acute kidney failure, extremes of body mass or the acutely ill. [email or web address] Blood specimen (specimen) 09/19/2019 10:05 AM EDT 09/19/2019 10:20 AM EDT Narrative Resulting Agency Comment Spec In Lab Zackery Dawson MD CHEMISTRY ORDERABLES [facility] [place] [address] documented in this encounter Visit Diagnoses Diagnosis Hypertension, unspecified type documented in this encounter Care Teams Independent Living Specialist Relationship Specialty Start Date End Date Trinh Coates MD [address] [place] [address] PCP - General 01/11/10 documented as of this encounter
--- OUTSIDE RECORDS SUMMARY | 2023-09-25 11:44 | XMS_ITS | Encounter Summary ---
[place] [address] Care Team Providers Care Polish Compounder Name Role Phone Trinh Coates MD Primary Care Provider [phone] Encounter Details Date Type Department Care Team (Late st Contact Info) Description 08/26/2019 Telephone [place] [phone] Tahira Cedeno Social History Tobacco Use Types [...] Recall Report Outcome: Left Message Phone number: [phone] Phone Type: ?? Comm. type: Telephone Call type: Outgoing Contact: Wendy Sandoval Relation to patient: Self User: TAHIRA CEDENO Date/time: 08/26/19 10:54 AM Comment: letter sent x2 Context: [place]asta Recall Report Outcome: No Answer - Letter Sent Phone number: [phone] Phone Type: ?? Comm. type: Telephone Call type: Outgoing Contact: LoriWendy Relation to patient: Self User: SANDIE TONEY Date/time: 07/23/19 2:30 PM Comment: Sent ltr. x1 Context: [place]asta Recall Report Outcome: No Answer - Letter Sent Phone number: [phone] Phone Type: ?? Comm. type: Telephone Call type: Outgoing Contact: JuanWendy mayer Relation to patient: Self User: GUDELIANSANDIE Date/time: 07/23/19 2:11 PM Comment: LMOM x1 Context: [place] Recall Report Outcome: Left Message Phone number: [phone] Phone Type: ?? Comm. type: Telephone Call type: Outgoing Contact: Wendy Sandoval Relation to patient: Self documented in this encounter Plan of Treatment Upcoming Encounters Date Type Department Care Team (Late st Contact Info) Description 01/22/2024 10:30 AM EST Appointment Mammography/DXA at [place] [phone] Ladi Mendosa MD [facility] HEMATOLOGY [place] [address] 01/30/2024 11:30 AM EST Office Visit Dermatology at [address] [phone] Nilda Luis MD [facility] [place] [address] 02/14/2024 7:30 AM EST [place] [address] Joanna Watts MD [facility] [place] [address] documented as of this encounter Visit Diagnoses Not on filedocumented in this encounter Care Teams Polish Compounder Relationship Specialty Start Date End Date Trinh Coates MD [address] [facility] 1 [place] [address] PCP - General 01/11/10 documented as of this encounter
--- OUTSIDE RECORDS SUMMARY | 2023-09-25 11:44 | XMS_ITS | Encounter Summary ---
Author Organization [facility] Address [facility] [place] [address] Care Team Providers Care Sap Portal Architect Name Role Phone Trinh Coates MD Primary Care Provider Encounter Details Date Type Department Care Team (Late Contact Info) Description 06/25/2019 Telephone Radiation Oncology at [address] [address] Cosme Sawyer Social History Tobacco [...] 01/22/2024 10:30 AM EST Appointment Mammography/[place] [address] Ladi Mendosa MD [facility] HEMATOLOGY [place] [address] 01/30/2024 11:30 AM EST Office Visit Dermatology at [facility] [address] [place] [phone] Nilda Luis MD [facility] [place] [address] 02/14/2024 7:30 AM EST Appointment [place] [phone] Joanna Watts MD [facility] [place] [address] documented as of this encounter Visit Diagnoses Not on filedocumented in this encounter Care Teams Sap Portal Architect Relationship Specialty Start Date End Date Trinh Coates MD [facility] [address] [facility] 1 [place] [address] PCP - General 01/11/10 documented as of this encounter
--- OUTSIDE RECORDS SUMMARY | 2023-09-25 11:44 | XMS_ITS | Encounter Summary ---
Author Organization [facility] Address [facility] [place] [address] Care Team Providers Care Climbing Guide Name Role Phone Trinh Coates MD Primary Care Provider [phone] Encounter Details Date Type Department Care Team (Late st Contact Info) Description 01/30/2020 External Results [place] [phone] Antwon Dowell MD [facility] [place] [address] Social History Tobacco Use Types Packs/Day Years [...] 01/22/2024 10:30 AM EST Appointment Mammography/[place] [phone] Ladi Mendosa MD [facility] DR HEMATOLOGY [place] [address] 01/30/2024 11:30 AM EST Office Visit Dermatology at [address] [place] [address] Nilda Luis MD [facility] [address] 02/14/2024 7:30 AM EST Appointment Radiology at [facility] [place] [phone] Joanna Watts MD [facility] [place] [address] documented as of this encounter Procedures Procedure Name Priority Date/Time Associated Diagnosis Comments EMG SCAN Routine 01/30/2020 documented in this encounter Results * Scan Doc: EMG (01/30/2020) Antwon Dowell MD MEDIA MGR SCAN EXT O RDR/RSLT documented in this encounter Visit Diagnoses Not on filedocumented in this encounter Care Teams Climbing Guide Relationship Specialty Start Date End Date Trinh Coates MD [address] [place] [address] PCP - General 01/11/10 documented as of this encounter
--- OUTSIDE RECORDS SUMMARY | 2023-09-25 11:44 | XMS_ITS | Encounter Summary ---
Author Organization [facility] [place] [address] Care Team Providers Care Forming Operator Name Role Phone Trinh Coates MD Primary Care Provider [phone] Reason for Visit * Reason Onset Date Comments Follow-up 11/19/2019 Encounter Details Date Type Department Care Team (Late st Contact Info) Description 11/19/2019 Telephone Hematology [place] [address] Korin Guzman, RN Follow-up Social [...] 11/19/2019 1:17 PM EDT Message received from school secretary: Call back [phone] Wendy called to ask some questions prior [...] 01/22/2024 10:30 AM EST Appointment Mammography/[place] [phone] Ladi Mendosa MD [facility] [place] [address] 01/30/2024 11:30 AM EST Office Visit Dermatology at [address] [address] Nilda Luis MD [facility] [place] [address] 02/14/2024 7:30 AM EST Appoint[place] [address] Joanna Watts MD [facility] [place] [address] documented as of this encounter Visit Diagnoses Not on filedocumented in this encounter Care Teams Forming Operator Relationship Specialty Start Date End Date Trinh Coates MD [address] [place] [address] PCP - General 01/11/10 documented as of this encounter
--- OUTSIDE RECORDS SUMMARY | 2023-09-25 11:44 | XMS_ITS | Encounter Summary ---
Author Organization [facility] [place] [address] Care Team Providers Care Senior Case Manager Name Role Phone Trinh Coates MD Primary Care Provider [phone] Reason for Referral * Consultation (Routine) - Closed Specialty Diagnoses / Procedures Referred By Diamante marin Referred To Contact Neurology Diagnoses Dysesthesia of scalp Anderson Zhou MD [facility] DR [facility] [place] [address] [facility] Neurology [address] [place] [phone] Referral ID Status Reason Start Date Expiration Date V isits Requested Visits Authorized [id number] Closed Consult, Test & Treat 10/20/2019 10/19/2020 1 1 Reason for Visit * Reason Comments Psoriasis Encounter Details Date Type Department Care Team (Late st Contact Info) Description 10/20/2019 3:00 PM EDT Office Visit Dermatology at [facility] [address] [place] [address] Anderson Zhou MD [facility] DR [facility] [place] [address] SK (seborrheic keratosis); Psoriasis; Folliculitis; Pruritus; Dysesthesia [...] psoriasis ?? 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 Medications: Current [...] Campus Patient seen and evaluated with staff clerical and office support workers: Isabel Flores MD Department of Dermatology [facility] * Isabel Flores MD - 10/20/2019 3:00 PM EDT I was the supervising physician working with dermatology resident Dr. Zhou in the dermatology clinic during this patient visit. The level of resident supervision for this patient visit was indirectsupervision with direct supervision immediately available. (definition: [facility] GME Policy Statement on Graduate Medical Education, [...] 01/22/2024 10:30 AM EST Appointment Mammography/[place] [address] Ladi Mendosa MD [facility] HEMATOLOGY [place] [address] 01/30/2024 11:30 AM EST Office Visit Dermatology at [facility] [address] [place] [address] Nilda Luis MD [facility] [place] [address] 02/14/2024 7:30 AM [place] [phone] Joanna Watts MD [facility] [place] [address] Scheduled Referrals Name Type Priority Associated Diagnoses Orde r Schedule Referral to Neurology Outpatient Referral Routine Dysesthesia of scalp Ordered: 10/20/2019 documented as of this encounter Visit Diagnoses Diagnosis SK (seborrheic keratosis) Other seborrheic keratosis Psoriasis Other psoriasis Folliculitis Other specified disease of hair and hair follicles Pruritus Unspecified pruritic disorder Dysesthesia of scalp documented in this encounter Care Teams Senior Case Manager Relationship Specialty Start Date End Date Trinh Coates MD [facility] [address] [place] [address] PCP - General 01/11/10 documented as of this encounter
--- OUTSIDE RECORDS SUMMARY | 2023-09-25 11:44 | XMS_ITS | Encounter Summary ---
Author Organization [facility] Address [facility] [place] [address] Care Team Providers Care Tread Tuber Machine Operator Name Role Phone Trinh Coates MD Primary Care Provider [phone] Reason for Visit * Reason Comments Follow Up Surgery Lymphatic mapping le ft arm Encounter Details Date Type Department Care Team (Late st Contact Info) Description 01/07/2019 10:15 AM EST Office [place] [address] Mali Lakhani MD [facility] [address] Surgery follow-up Social History Tobacco Use Types [...] and closure. Debridement of umbilicus. Deflation of scraper operator volume, This leaves 450 cc in the left tissue scraper operator and 500 cc on the right side Date of surgery: 04/26/17 Procedure(s): Bilateral breast reconstruction with attempted SALVADOR flaps, eventual tissue scraper operator placement with Whitney Artoura 600 cc expanders placed bilaterally and [...] 01/22/2024 10:30 AM EST Appointment Mammography/[place] [phone] Ladi Mendosa MD [facility] HEMATOLOGY [place] [address] 01/30/2024 11:30 AM EST Office Visit Dermatology at [address] [address] Nilda Luis MD [facility] [place] [address] 02/14/2024 7:30 AM EST Appointment Radiology at [place] [phone] Joanna Watts MD [facility] [place] [address] documented as of this encounter Visit Diagnoses Diagnosis Surgery follow-up Follow-up examination, following unspecified surgery documented in this encounter Care Teams Tread Tuber Machine Operator Relationship Specialty Start Date End Date Trinh Coates MD [facility] [address] [place] [address] PCP - General 01/11/10 documented as of this encounter
--- OUTSIDE RECORDS SUMMARY | 2023-09-25 11:45 | XMS_ITS | Encounter Summary ---
Author Organization [facility] [place] [address] Care Team Providers Care Consumer Marketing Analyst Name Role Phone Trinh Coates MD Primary Care Provider [phone] Reason for Referral * Diagnostic Test (Routine) - Closed Specialty Diagnoses / Procedures Referred By Contac t Referred To Contact Radiology Diagnoses Primary hyperaldosteronism Procedures IR Adrenal Vein Sampling Marcos Dey MD [facility] [place] [address] [place] [address] Referral ID Status Reason Start Date Expiration Date V isits Requested Visits Authorized [id number] Closed Specialty Service Requested 06/26/2018 06/26/2019 1 1 Reason for Visit * Diagnostic Test (Routine) - Closed Specialty Diagnoses / Procedures Referred By Contac t Referred To Contact Radiology Diagnoses Primary hyperaldosteronism Procedures IR Adrenal Vein Sampling Marcos Dey MD [facility] [place] [address] [facility] [place] [address] Referral ID Status Reason Start Date Expiration Date V isits Requested Visits Authorized [id number] Closed Specialty Service Requested 06/26/2018 06/26/2019 1 1 Encounter Details Date Type Department Care Team (Latest Contact Info) Description 07/12/2018 6:27 AM EDT - 07/12/2018 11:59 PM EDT Hospital Encounter Radiology at [facility] [place] [address] Marcos Dey MD [facility] [place] [address] Pre-op testing; Hypertension, unspecified type; Primary hyperaldosteronism [...] Licea RN - 07/12/2018 10:11 AM EDT [facility] Vascular and Interventional Radiology Discharge Instructions [...] is during regular office hours, please call [phone]. If it is after regular office hours, or on weekends or holidays, please call [phone] and ask to speak to the [employer] technical support professional for Interventional Radiology. You have received medication [...] q 6 hrs daily as needed 11/15/2015 losartan (COZAAR) 100 mg Tablet take 1 [...] Tablet 0.5 tablets daily. 0 02/06/2018 07/23/2018 potassium chloride 20 mEq Tablet Sustained Release 1 tablet daily. 0 09/17/2017 07/12/2020 omeprazole (PRILOSEC) 40 mg Capsule, Delayed Release(E.C.) Take 1 capsule by mouth daily. 90 capsule 11 08/23/2017 08/23/2018 atorvastatin (LIPITOR) 20 mg Tablet Take 1 tablet by mouth daily. 0 03/02/2017 07/12/2020 triamcinolone (ARISTOCORT) 0.5 % CreamIndications:plaque psoriasis Apply topically 3 times daily. To hand, elbow and lower back Indications: Plaque Psoriasis 07/24/2018 acetaminophen (TYLENOL) 325 mg Tablet Take 2 tablets by mouth every 4 hours as needed for Pain. 11/03/2015 07/25/2022 DILTiazem (CARDIZEM CD) 240 mg Capsule, Sust. Release 24 hr Take 1 capsule by mouth daily. 07/26/2015 10/17/2018 clobetasol (TEMOVATE) 0.05 % CreamIndications:Psoriasi s Apply to affected areas on knees, elbows and hands twice daily for two week cycles as needed. 60 g 3 04/16/2014 10/20/2019 documented as of this encounter Progress Notes * Jadyn Hammer RN - 07/09/2018 2:31 PM EDT [facility] Name: WENDY SANDOVAL Date of : 1965 AGE: 53 y.o. Address: [address] [place] [id number] (home) [phone] (work) Mobile: Telephone Information: Referring Provider: Marcos Dey REASON FOR VISIT: Adrenal vein sampling Order Questions Answers Where will study be performed? [facility] [120] Reason for exam and clinical [...] of left breast in female, estrogen receptor [id number], Z17.0 ??? S/P breast reconstruction, bilateral Z98.890 [...] IR Drain Check/Change/Remove 11/20/2017 Marcos Dey MD [facility] ??? IR MEDIPORT REMOVAL 01/25/2018 IR Mediport Removal 01/25/2018 Scooby Muñoz, AARTI [facility] ??? PRG EMG, LARYNX N/A 11/02/2015 FACIAL NERVE MONITORING, SETUP LARYNGEAL performed by Valentina Lucas MD at [facility] OR ??? PRO BREAST RECONSTRUC W FREE FLAP Bilateral 04/26/2017 @BREAST RECONSTRUCTION W/ FREE FLAP, SUSAN (WRVU 42.58) performed [facility] ??? PRO BREAST RECONSTRUC W FREE FLAP, W/O IMPLANT Bilateral 12/12/2017 @BREAST RECONSTRUCTION W/ LAT DORSI FLAP,W/O IMPLANT, SUSAN (WRVU 23.36) performed by Andre Gimenez MD at [facility] OR ??? PRO BREAST RECONSTRUC W TISS EXPANDR Bilateral 04/26/2017 BREAST RECONSTRUCTION, IMMEDIATE OR DELAYED, W/ TISSUE PURCHASING INTERNSHIP, INCLUDING SUBSEQUENT EXPANSION (WRVU 18.5) performed by Andre Gimenez MD at [facility] OR ? ? PRO DEBRIDEMENT SUBCUTANEOUS TISSUE 20 SQCM/< 06/22/2017 DEBRIDEMENT SKIN AND SUBCU, BREAST (WRVU 1.01) performed by Andre Gimenez MD at [facility] OR ??? PRO EXPLORE PARATHYROID GLANDS N/A 11/02/2015 PARATHYROIDECTOMY OR EXPLORATION OF PARATHYROID(S) performed by Valentina Lucas MD at [facility] OR ? ? PRO FULL THICK GRFT TRUNK <20 SQCM Bilateral 04/26/2017 FTSG, FREE, DIR CLOSE DONOR SITE, TRUNK, 20 SQ CM OR LESS (WRVU 9.15) performed by Andre Gimenez MD at [facility] OR ??? PRO MASTECTOMY, SIMPLE, COMPLETE Bilateral 04/26/2017 MASTECTOMY, SIMPLE, COMPLETE-SUSAN (WRVU 15.85) performed by Jolie Menendez MD at [facility] OR ??? PRO PARTIAL REMOVAL OF RIB Bilateral 04/26/2017 EXCISION OF RIB, PARTIAL (WRVU 7.26) performed by Andre Gimenez MD at [facility] OR ??? PRO REMOVE ARMPITS LYMPH NODES COMPLT Left 04/26/2017 LYMPHADENECTOMY, AXILLARY, COMPLETE (WRVU 13.87) performed by Jolie Menendez MD at [facility] OR ??? PRO REPLACE TISSUE PURCHASING INTERNSHIP Bilateral 12/12/2017 TISSUE PURCHASING INTERNSHIP REPLACEMENT, WITH PERMANENT PROSTHESIS, SUSAN (WRVU 8.01) performed by Andre Gimenez MD at [facility] OR ??? PRO REVISE BREAST RECONSTRUCTION Left 06/22/2017 REVISION OF RECONSTRUCTED BREAST (WRVU 10.41) performed by Andre Gimenez MD at [facility] OR ??? PRO REVISE BREAST RECONSTRUCTION Bilateral 12/12/2017 REVISION OFRECONSTRUCTED BREAST, SUSAN (WRVU 10.41) performed by Andre Gimenez MD at [facility] OR ??? PRO THYMECTOMY, TRANSCERVICAL N/A 11/02/2015 THYMECTOMY, TRANSCERVICAL APPROACH performed by Valentina Lucas MD at [facility] OR ??? SHOULDER SURGERY Left ??? [...] R drain removed. Fentanyl 50 mcg IV? [id number] Left breast aspiration/ 30 ml Fentanyl 100 [...] y.o. 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 Lab studies show normal cortisol, but she has renin of <0.6 and aldosterone of 21 ng/dl. Hypertension relatively contro lled, but with K 2.8. To evaluate for unilateral aldosterone production, adrenal vein sampling is desired. ?? HPI: diagnosed with toxemia during her [id number], but hypertension persisted after delivery. treated with [...] IR Drain Check/Change/Remove 11/20/2017 Marcos Dey MD [facility] ??? IR MEDIPORT REMOVAL ?? 01/25/2018 ?? IR Mediport Removal 01/25/2018 Scooby Muñoz APRN [facility] ??? PRG EMG, LARYNX N/A 11/02/2015 ?? FACIAL NERVE MONITORING, SETUP LARYNGEAL performed by Valentina Lucas MD at [facility] OR ??? PRO BREAST RECONSTRUC W FREE FLAP Bilateral 04/26/2017 ?? @BREAST RECONSTRUCTION W/ FREE FLAP, SUSAN (WRVU 42.58) performed by Andre Gimenez MD at [facility] OR ??? PRO BREAST RECONSTRUC W FREE FLAP, W/O IMPLANT Bilateral 12/12/2017 ?? @BREAST RECONSTRUCTION W/ LAT DORSI FLAP,W/O IMPLANT, SUSAN (WRVU 23.36) performed by Andre Gimenez MD at [facility] OR ??? PRO BREAST RECONSTRUC W TISS EXPANDR Bilateral 04/26/2017 ?? BREAST RECONSTRUCTION, IMMEDIATE OR DELAYED, W/ TISSUE PURCHASING INTERNSHIP, INCLUDING SUBSEQUENT EXPANSION (WRVU 18.5) performed by Andre Gimenez MD at [facility] OR ? ? PRO DEBRIDEMENT SUBCUTANEOUS TISSUE 20 SQCM/< ?? 06/22/2017 ?? DEBRIDEMENT SKIN AND SUBCU, BREAST (WRVU 1.01) performed by Andre Gimenez MD at [facility] OR ??? PRO EXPLORE PARATHYROID GLANDS N/A 11/02/2015 ?? PARATHYROIDECTOMY OR EXPLORATION OF PARATHYROID(S) performed by Valentina Lucas MD at [facility] OR ? ? PRO FULL THICK GRFT TRUNK <20 SQCM Bilateral 04/26/2017 ?? FTSG, FREE, DIR CLOSE DONOR SITE, TRUNK, 20 SQ CM OR LESS (WRVU 9.15) performed by Susana Gimenez MD at [facility] OR ??? PRO MASTECTOMY, SIMPLE, COMPLETE Bilateral 04/26/2017 ?? MASTECTOMY, SIMPLE, COMPLETE-SUSAN (WRVU 15.85) performed by Jolie Menendez MD at [facility] OR ??? PRO PARTIAL REMOVAL OF RIB Bilateral 04/26/2017 ?? EXCISION OF RIB, PARTIAL (WRVU 7.26) performed by Andre Gimenez MD at [facility] OR ??? PRO REMOVE ARMPITS LYMPH NODES COMPLT Left 04/26/2017 ?? LYMPHADENECTOMY, AXILLARY, COMPLETE (WRVU 13.87) performed by Jolie Menendez MD at [facility] OR ??? PRO REPLACE TISSUE PURCHASING INTERNSHIP Bilateral 12/12/2017 ?? TISSUE PURCHASING INTERNSHIP REPLACEMENT, WITH PERMANENT PROSTHESIS, SUSAN (WRVU 8.01) performed by Andre Gimenez MD at [facility] OR ??? PRO REVISE BREAST RECONSTRUCTION Left 06/22/2017 ?? REVISION OF RECONSTRUCTED BREAST (WRVU 10.41) performed by Andre Gimenez MD at [facility] OR ??? PRO REVISE BREAST RECONSTRUCTION Bilateral 12/12/2017 ?? REVISION OFRECONSTRUCTED BREAST, SUSAN (WRVU 10.41) performed by Andre Gimenez MD at [facility] OR ??? PRO THYMECTOMY, TRANSCERVICAL N/A 11/02/2015 ?? THYMECTOMY, TRANSCERVICAL APPROACH performed by Valentina Lucas MD at [facility] OR ??? SHOULDER SURGERY Left ? UMBILICAL [...] Gets together: Not on file ? Attends synagogue service: Not on file ? Active member [...] 01/22/2024 10:30 AM EST Appointment Mammography/[place] [address] Ladi Mendosa MD [facility] [place] [address] 01/30/2024 11:30 AM EST Office Visit Dermatology at [address] [place] [address] Nilda Luis MD [facility] [place] [address] 02/14/2024 7:30 AM EST Appointment [place] [address] Joanna Watts MD [facility] [address] documented as of this encounter Procedures Procedure [...] saturation. ??Procedure was performed in accordance with [facility] protocol. ??An IV infusion of 50 [...] obtained with wire in place through a [id number]. ??Specimen was sent for stat cortisol (08:34)and [...] (ABNORMAL) Aldosterone (07/12/2018 9:44 AM EDT) Aldosterone (1989(H) <=21 ng/dL [facility] Comment: ADDITIONAL INFORMATION Reference range for patients 11 years and older is based on upright A.M. collection from subjects without sodium restrictions. This test was developed and its performance characteristics determined by [facility] in a manner consistent with CLIA requirements. This test has not been cleared or approved by the U.S. Food and Drug Administration. Test Performed by: [place] [address] Blood specimen (specimen) 07/12/2018 9:44 AM EDT 07/12/2018 11:28 AM EDT Narrative Resulting Agency Comment Spec In Lab Marcos Dey MD LAB SEND OUT ORDERAB LES Performing Organization Address [facility]/ZIP Co de Phone Number [facility] [place] [address] * Cortisol (07/12/2018 9:44 AM EDT) Cortisol 775.5 mcg/dL [facility] Comment: Reference ranges: ??AM (6-10am): ??4.8-19.5 mcg/dL ??PM (4-8pm) : ??2.5-11.9 mcg/dL Blood specimen (specimen) 07/12/2018 9:44 AM EDT 07/12/2018 9:58 AM EDT Narrative Resulting Agency Comment Spec In Lab Marcos Dey MD CHEMISTRY ORDERABLES Performing Organization Address [facility] Co de Phone Number [facility] [place] [address] * (ABNORMAL) Aldosterone (07/12/2018 9:02 AM EDT) Aldosterone (JUNE) 37(H) <=21 ng/dL [facility] Comment: ADDITIONAL INFORMATION Reference range for patients 11 years and older is based on upright A.M. collection from subjects without sodium restrictions. This test was developed and its performance characteristics determined by [facility] in a manner consistent with CLIA requirements. This test has not been cleared or approved by the U.S. Food and Drug Administration. Test Performed by: [facility] - [address] [address] Blood specimen (specimen) 07/12/2018 9:02 AM EDT 07/12/2018 12:44 PM EDT Narrative Resulting Agency Comment Spec In Lab Marcos Dey MD LAB SEND OUT ORDERAB LES Performing Organization Address City/[facility]/ZIP Co de Phone Number [facility] [place] [address] * Cortisol (07/12/2018 9:02 AM EDT) Cortisol 35.8 mcg/dL [facility] Comment: Reference ranges: ??AM (6-10am): ??4.8-19.5 mcg/dL ??PM (4-8pm) : ??2.5-11.9 mcg/dL Blood specimen (specimen) 07/12/2018 9:02 AM EDT 07/12/2018 9:58 AM EDT Narrative Resulting Agency Comment Spec In Lab Marcos Dey MD CHEMISTRY ORDERABLES Performing Organization Address [facility]/ZIP Co de Phone Number [facility] [place] [address] * (ABNORMAL) Aldosterone (07/12/2018 8:46 AM EDT) Aldosterone (JUNE) 36(H) <=21 ng/dL [facility] Comment: ADDITIONAL INFORMATION Reference range for patients 11 years and older is based on upright A.M. collection from subjects without sodium restrictions. This test was developed and its performance characteristics determined by [facility] in a manner consistent with CLIA requirements. This test has not been cleared or approved by the U.S. Food and Drug Administration. Test Performed by: [facility] - [facility] [address] [place] [address] Blood specimen (specimen) 07/12/2018 8:46 AM EDT 07/12/2018 11:28 AM EDT Narrative Resulting Agency Comment Spec In Lab Marcos Dey MD LAB SEND OUT ORDERAB LES Performing Organization Address [facility]/ZIP Co de Phone Number [facility] [place] [address] * Cortisol (07/12/2018 8:46 AM EDT) Cortisol 30.6 mcg/dL [facility] Comment: Reference ranges: ??AM (6-10am): ??4.8-19.5 mcg/dL ??PM (4-8pm) : ??2.5-11.9 mcg/dL Blood specimen (specimen) 07/12/2018 8:46 AM EDT 07/12/2018 9:24 AM EDT Narrative Resulting Agency Comment Spec In Lab Marcos Dey MD CHEMISTRY ORDERABLES Performing Organization Address [facility]/ZIP Co de Phone Number [facility] [place] [address] * (ABNORMAL) Aldosterone (07/12/2018 8:41 AM EDT) Aldosterone (JUNE) 2570(H) <=21 ng/dL [facility] Comment: ADDITIONAL INFORMATION Reference range for patients 11 years and older is based on upright A.M. collection from subjects without sodium restrictions. This test was developed and its performance characteristics determined by [facility] in a manner consistent with CLIA requirements. This test has not been cleared or approved by the U.S. Food and Drug Administration. Test Performed by: [facility] [address] [place] [address] Blood specimen (specimen) 07/12/2018 8:41 AM EDT 07/12/2018 11:28 AM EDT Narrative Resulting Agency Comment Spec In Lab Marcos Dey MD LAB SEND OUT ORDERAB LES Performing Organization Address [facility] Co de Phone Number [facility] [place] [address] * Cortisol (07/12/2018 8:41 AM EDT) Cortisol 724.0 mcg/dL [facility] Comment: Reference ranges: ??AM (6-10am): ??4.8-19.5 mcg/dL ??PM (4-8pm) : ??2.5-11.9 mcg/dL Blood specimen (specimen) 07/12/2018 8:41 AM EDT 07/12/2018 9:22 AM EDT Narrative Resulting Agency Comment Spec In Lab Marcos Dey MD CHEMISTRY ORDERABLES Performing Organization Address [facility] Co de Phone Number [facility] [place] [address] * (ABNORMAL) Aldosterone (07/12/2018 8:37 AM EDT) Aldosterone (JUNE) 2410(H) <=21 ng/dL [facility] Comment: ADDITIONAL INFORMATION Reference range for patients 11 years and older is based on upright A.M. collection from subjects without sodium restrictions. This test was developed and its performance characteristics determined by [facility] in a manner consistent with CLIA requirements. This test has not been cleared or approved by the U.S. Food and Drug Administration. Test Performed by: [facility] [address] [place] [address] Blood specimen (specimen) 07/12/2018 8:37 AM EDT 07/12/2018 11:28 AM EDT Narrative Resulting Agency Comment Spec In Lab Marcos Dey MD LAB SEND OUT ORDERAB LES Performing Organization Address [facility] Co de Phone Number [facility] [place] [address] * Cortisol (07/12/2018 8:34 AM EDT) Cortisol 512.0 mcg/dL [facility] Comment: Called by: paige, Read back by: Elisa Lei, Date/Time:07/12/18 09:46. Reference ranges: ??AM (6-10am): ??4.8-19.5 mcg/dL ??PM (4-8pm) : ??2.5-11.9 mcg/dL Blood specimen (specimen) 07/12/2018 8:34 AM EDT 07/12/2018 8:45 AM EDT Narrative Resulting Agency Comment Spec In Lab Marcos Dey MD CHEMISTRY ORDERABLES Performing Organization Address [facility] Co de Phone Number [facility] [place] [address] * Creatinine (07/12/2018 6:22 AM EDT) Creatinine 0.98 0.70 - 1.20 mg/dL [facility] Est Glomerular Filtration Rate 65 >=60 mL/min/1.7 3 m?? [facility] Comment: The eGFR was calculated using the CKD-EPI equation. As with all creatinine based estimates of kidney function, eGFR values calculated with the CKD-EPI equation are not accurate in patients with acute kidney failure, extremes of body mass or the acutely ill. http://[employer]/DHMCnkf eGFR 75 >=60 mL/min/1.7 3 m?? [facility] Comment: The eGFR was calculated using the CKD-EPI equation. As with all creatinine based estimates of kidney function, eGFR values calculated with the CKD-EPI equation are not accurate in patients with acute kidney failure, extremes of body mass or the acutely ill. http://[employer]/[facility] Blood specimen (specimen) 07/12/2018 6:22 AM EDT 07/12/2018 6:25 AM EDT Narrative Resulting Agency Comment Spec In Lab Marcos Dey MD CHEMISTRY ORDERABLES [facility] [place] [address] * (ABNORMAL) Platelet count (07/12/2018 6:22 AM EDT) Platelet 365(H) 145 - 357 x10(3)/mc L [facility] Immature Plt % 0.5 0.0 - 7.4 % [facility] Comment: Limitation of the Immature Platelet Fraction (IPF)-May be less reliable when the platelet count is less than 68a851/uL due to statistical imprecision. The IPF value [...] in a decreased state of production. References: [employer] The Clinical Value of the Immature Platelet Fraction (IPF) in Cell Recovery Document Number 10-1143 07/2010 [employer] The Role of the Immature Platelet Fraction (IPF) in the Differential Diagnosis of Thrombocytopenia, Document [id number] V05 P05/14 Blood specimen (specimen) 07/12/2018 6:22 AM EDT 07/12/2018 6:25 AM EDT Narrative Resulting Agency Comment Spec In Lab Marcos Dey MD HEMATOLOGY ORDERABLE S [facility] [place] [address] documented in this encounter Visit Diagnoses Diagnosis [...] mL/hr documented in this encounter Care Teams Consumer Marketing Analyst Relationship Specialty Start Date End Date Trinh Coates MD [address] [place] [address] PCP - General 01/11/10 documented as of this encounter
--- OUTSIDE RECORDS SUMMARY | 2023-09-25 11:45 | XMS_ITS | Encounter Summary ---
Author Organization [facility] Address [facility] [place] [address] Care Team Providers Care Tip Bander Name Role Phone Trinh Coates MD Primary Care Provider [phone] Encounter Details Date Type Department Care Team (Late st Contact Info) Description 09/09/[address] [facility] [address] [place] [address] Tino Mann MD [facility] DR [address] [place] [address] Social History Tobacco Use Types Packs/Day Years [...] 01/22/2024 10:30 AM EST Appointment Mammography/[place] [address] Ladi Mendosa MD [facility] [place]EMATOLOGY [place] [address] 01/30/2024 11:30 AM EST Office Visit Dermatology at [facility] [address] [place] [address] Nilda Luis MD [facility] [place] [address] 02/14/2024 7:30 AM EST Appointment Radiology at [place] [phone] Joanna Watts MD [facility] [place] [address] documented as of this encounter Visit Diagnoses Not on filedocumented in this encounter Care Teams Tip Bander Relationship Specialty Start Date End Date Trinh Coates MD [facility] [address] [place] [address] PCP - General 01/11/10 documented as of this encounter
--- OUTSIDE RECORDS SUMMARY | 2023-09-25 11:45 | XMS_ITS | Encounter Summary ---
Author Organization [facility] Address [facility] Margarita [place] [address] Care Team Providers Care Master Police Detective Name Role Phone Trinh Coates MD Primary Care Provider [phone] Encounter Details Date Type Department Care Team (Late st Contact Info) Description 08/14/2018 Telephone Dermatology at [facility] [address] [place] [address] Tino Mann MD [facility] [address] [place] [address] Social History Tobacco Use Types Packs/Day Years [...] the medication needs to be sent to [facility]. * Telephone Encounter - Ailyn Kee - 08/14/2018 3:49 PM EDT Wendy Yannick Sandoval's ustekinumab (STELARA) 45 mg/0.5 mL Syringe script has been approved starting today until August 15, 2019. The approval number is [id number]. Ailyn Kee, Clinical [employer] documented in this encounter Plan of Treatment Upcoming Encounters Date Type Department Care Team (Late st Contact Info) Description 01/22/2024 10:30 AM EST Appointment Mammography/[place] [address] Ladi Mendosa MD [facility] DR [place] [address] 01/30/2024 11:30 AM EST Office Visit Dermatology at [address] [address] Nilda Luis MD [facility] [place] [address] 02/14/2024 7:30 AM [place] [address] Joanna Watts MD [facility] [place] [address] documented as of this encounter Visit Diagnoses Not on filedocumented in this encounter Care Teams Master Police Detective Relationship Specialty Start Date End Date Trinh Coates MD [address] [place] [address] PCP - General 01/11/10 documented as of this encounter
--- OUTSIDE RECORDS SUMMARY | 2023-09-25 11:45 | XMS_ITS | Encounter Summary ---
Author Organization [facility] Address [facility] [place] [address] Care Team Providers Care Key Ringer Name Role Phone Trinh Coates MD Primary Care Provider [phone] Encounter Details Date Type Department Care Team (Late st Contact Info) Description 09/03/2018 Refill Dermatology at [facility] [address] [place] [address] Tino Mann MD [facility] [address] [place] [address] Psoriasis Social History Tobacco Use Types Packs/Day [...] 10:30 AM EST Appointment Mammography[place] [address] Ladi Mendosa MD [facility] [place] [address] 01/30/2024 11:30 AM EST Office Visit Dermatology at [facility] [address] [place] [address] Nilda Luis MD [facility] [address] 02/14/2024 7:30 AM EST [place] [address] Joanna Watts MD [facility] [place] [address] documented as of this encounter Visit Diagnoses Diagnosis Psoriasis Other psoriasis documented in this encounter Care Teams Key Ringer Relationship Specialty Start Date End Date Trinh Coates MD [facility] [address] [address] PCP - General 01/11/10 documented as of this encounter
--- OUTSIDE RECORDS SUMMARY | 2023-09-25 11:45 | XMS_ITS | Encounter Summary ---
Author Organization [facility] [place] [address] Care Team Providers Care Fitting Room Supervisor Name Role Phone Trinh Coates MD Primary Care Provider [phone] Reason for Visit * Reason Comments Follow Up Surgery Discuss lymphoscinti graphy Encounter Details Date Type Department Care Team (Late st Contact Info) Description 08/19/2018 2:15 PM EDT Office [place] [address] Mali Gimenez MD [facility] [place] [address] S/P breast reconstruction, bilateral Social History Tobacco [...] appointment. Feel free to call our office [phone] if you have any nursingquestions or concerns. We monitor the phones from 8-5 Sunday through Sunday. Expect a call from the Same Day Dept the business day before surgery to go over your list of medications and instruct you on arrival time, and when to stop eating and drinking. For questions pertaining to your surgery date or time please call Tawana at [phone]. documented in this encounter Progress Notes * [...] and closure. Debridement of umbilicus. Deflation of spreader volume, This leaves 450 cc in the left tissue spreader and 500 cc on the right side Date of surgery: 04/26/17 Procedure(s): Bilateral breast reconstruction with attempted SALVADOR flaps, eventual tissue spreader placement with Butler Artoura 600 cc expanders placed bilaterally and [...] None Procedure: Lymphatic mapping, lymphevenous bypass CPT: 77628, 83728 Surgical site: Arm Side: Left Anesthesia: General [...] 01/22/2024 10:30 AM EST Appointment Mammography/[place] [address] Ladi Mendosa MD [facility] [place] [address] 01/30/2024 11:30 AM EST Office Visit Dermatology at [place] [address] [place] [address] Nilda Luis MD [facility] [place] [address] 02/14/2024 7:30 AM EST Appointment Radiology at [place] [phone] Joanna Watts MD [facility] [place] [address] documented as of this encounter Procedures Procedure Name Priority Date/Time Associated Diagnosis Comments INCISION & DRAINAGE LYMPHOCELE Routine 08/19/2018 2:44 PM EDT S/P breast reconstruction, bilateral documented in this encounter Visit Diagnoses Diagnosis S/P breast reconstruction, bilateral Breast replaced by other means documented in this encounter Care Teams Fitting Room Supervisor Relationship Specialty Start Date End Date Trinh Coates MD [address] [place] [address] PCP - General 01/11/10 documented as of this encounter
--- OUTSIDE RECORDS SUMMARY | 2023-09-25 11:45 | XMS_ITS | Encounter Summary ---
Author Organization [facility] [place] [address] Care Team Providers Care Aircraft Painter Apprentice Name Role Phone Trinh Coates MD Primary Care Provider [phone] Reason for Referral * Diagnostic Test (Routine) - Closed Specialty Diagnoses / Procedures Referred By Diamante marin Referred To Contact Radiology Diagnoses S/P breast reconstruction, bilateral Procedures NM Lymphoscintigraphy w Imaging Peripheral Edema Mali Lakhani MD [facility] [place] [address] [place] [address] Referral ID Status Reason Start Date Expiration Date V isits Requested Visits Authorized [id number] Closed Specialty Service Requested 07/24/2018 07/24/2019 1 1 Reason for Visit * Reason Comments Follow Up Surgery f/u bilat latiss Encounter Details Date Type Department Care Team (Late st Contact Info) Description 07/24/2018 11:30 AM EDT Office [place] [phone] Mali Lakhani MD [facility] [place] [address] S/P breast reconstruction, bilateral Social [...] and closure. Debridement of umbilicus. Deflation of radio time buyer volume, This leaves 450 cc in the left tissue radio time buyer and 500 cc on the right side Date of surgery: 04/26/17 Procedure(s): Bilateral breast reconstruction with attempted SALVADOR flaps, eventual tissue radio time buyer placement with Hackberry Artoura 600 cc expanders placed bilaterally and filled with 450 cc of methyleneblue impregnated saline.) Complications: right parietal and visceral pleural tear, arterial flap failure bilaterally Chemotherapy: yes - last dose 11/15 Radiation: yes. On left side. HPI: Pt reports she has been experiencing psoriasis on the incisions of her back and free nipple grafts. She is seeing her stone polisher hand today regarding the psoriasis and lesions on [...] 01/22/2024 10:30 AM EST Appointment Mammography/[place] [address] Ladi Mendosa MD [facility] [place] [address] 01/30/2024 11:30 AM EST Office Visit Dermatology at [facility] [address] [place] [address] Nilda Luis MD [facility] [place] [address] 02/14/2024 7:30 AM EST Appointment [place] [phone] Joanna Watts MD [facility] [place] [address] documented as of this encounter Results * [...] this report, please contact the number below. Mali Lakhani MD IMG NM ORDERABLES documented in this encounter Visit Diagnoses Diagnosis S/P breast reconstruction, bilateral Breast replaced by other means S/P breast reconstruction, bilateral Breast replaced by other means documented in this encounter Care Teams Aircraft Painter Apprentice Relationship Specialty Start Date End Date Trinh Coates MD [address] [place] [address] PCP - General 01/11/10 documented as of this encounter
--- OUTSIDE RECORDS SUMMARY | 2023-09-25 11:45 | XMS_ITS | Encounter Summary ---
Author Organization [facility] Address [facility] [place] [place] [address] Care Team Providers Care Taker Away Name Role Phone Trinh Coates MD Primary Care Provider [phone] Encounter Details Date Type Department Care Team (Late st Contact Info) Description 10/16/2018 9:00 AM EDT Office Visit Hematology [place] [address] Jolie Menendez MD [facility] [address] History of breast cancer Social History Tobacco [...] A. 2.0 cm cancer, high-grade, grade 3. ER/CO +++, HER-2/pat negative, 4/18 nodes (1/18 [...] her mother's side. Oct 2017 Genetic testing: [employer]'s Common Hereditary Cancers Panel showed no mutation [...] PMH of high-grade, node-positive left breast cancer ER+/CO+/HER2- (dx 03/2017, s/p bilateral mastectomy) who completed [...] 01/22/2024 10:30 AM EST Appointment Mammography/DXA at [place] [phone] Ladi Mendosa MD [facility] H[place]AT[place] [address] 01/30/2024 11:30 AM EST Office Visit Dermatology at [address] [phone] Nilda Luis MD [facility] [place] [address] 02/14/2024 7:30 AM EST Appointment Radiology at [place] [phone] Joanna Watts MD [facility] [place] [address] documented as of this encounter Visit Diagnoses Diagnosis History of breast cancer Personal history of malignant neoplasm of breast documented in this encounter Care Teams Taker Away Relationship Specialty Start Date End Date Trinh Coates MD [facility] [address] [place] [address] PCP - General 01/11/10 documented as of this encounter
--- OUTSIDE RECORDS SUMMARY | 2023-09-25 11:45 | XMS_ITS | Encounter Summary ---
Author Organization [facility] Address [facility] [place] [address] Care Team Providers Care Olericulture Teacher Name Role Phone Trinh Coates MD Primary Care Provider [phone] Reason for Visit * Auth/Cert Specialty Diagnoses [...] Expiration Date Visits Re quested Visits Authorized [id number] 1 1 Encounter Details Date Type Department Care Team (Late st Contact Info) Description 10/18/2018 1:56 PM EDT - 10/18/2018 4:19 PM EDT [place] [phone] Mali Lakhani MD [facility] [place] [address] INCISION & DRAINAGE LYMPHOCELE (WRVU 6.81) Social [...] office hours: Sunday - Sunday 8am-5pm call [phone]. On weekends or after hours call [phone] and ask the under cutting machine operator to page the plastic surgery resident account consultant. MEDICATIONS: You may resume your home medications. CONTACT INFORMATION: During office hours: Sunday through Sunday 8 am to 5 pm Call [phone] On weekends or after hours: Call [phone] and ask the under cutting machine operator to page the Plastic Surgery Resident account consultant. NEXT STEPS: You will have an appointment [...] mouth daily. 01/23/2019 tamoxifen (NOLVADEX) 20 mg TabletIndications:Stan kennedyt neoplasm of upper-outer quadrant of left breast in female, estrogen receptor positive Take 1 tablet by mouth daily. 90 tablet 3 05/29/2018 12/06/2018 gabapentin (NEURONTIN) 300 mg CapsuleIndications:Elaine rojas neoplasm [...] 04/16/2014 10/20/2019 documented as of this encounter H&P Notes [...] [facility] RAD ??? IR MEDIPORT REMOVAL 01/25/2018 IR Mediport Removal 01/25/2018 Scooby Muñoz APRN [facility] INTERVENTIONL RAD ??? PRG EMG, LARYNX N/A 11/02/2015 FACIAL NERVE MONITORING, SETUP LARYNGEAL performed by Valentina Lucas MD at [facility] OR ??? PRO BREAST RECONSTRUC W FREE FLAP Bilateral 04/26/2017 @BREAST RECONSTRUCTION W/ FREE FLAP, SUSAN (WRVU 42.58) performed by Mali Lakhani MD at [facility] [place] ??? PRO BREAST RECONSTRUC W FREE FLAP, W/O IMPLANT Bilateral 12/12/2017 @BREAST RECONSTRUCTION W/ LAT DORSI FLAP,W/O IMPLANT, SUSAN (WRVU 23.36) performed by Mali Lakhani MD at [facility] OR ??? PRO BREAST RECONSTRUC W TISS EXPANDR Bilateral 04/26/2017 BREAST RECONSTRUCTION, IMMEDIATE OR DELAYED, W/ TISSUE ONLINE ACTIVIST, INCLUDING SUBSEQUENT EXPANSION (WRVU 18.5) performed by Mali Lakhani MD at [facility] OR ? ? PRO DEBRIDEMENT SUBCUTANEOUS TISSUE 20 SQCM/< 06/22/2017 DEBRIDEMENT SKIN AND SUBCU, BREAST (WRVU 1.01) performed by Mali Lakhani MD at [facility] OR ??? PRO EXPLORE PARATHYROID GLANDS N/A 11/02/2015 PARATHYROIDECTOMY OR EXPLORATION OF PARATHYROID(S) performed by Valentina Lucas MD at [facility] OR ? ? PRO FULL THICK GRFT TRUNK <20 SQCM Bilateral 04/26/2017 FTSG, FREE, DIR CLOSE DONOR SITE, TRUNK, 20 SQ CM OR LESS (WRVU 9.15) performed by Mali Lakhani MD at [facility] OR ??? PRO MASTECTOMY, SIMPLE, COMPLETE Bilateral 04/26/2017 MASTECTOMY, SIMPLE, COMPLETE-SUSAN (WRVU 15.85) performed by Jolie Menendez MD at [facility] OR ??? PRO PARTIAL REMOVAL OF RIB Bilateral 04/26/2017 EXCISION OF RIB, PARTIAL (WRVU 7.26) performed by Mali Lakhani MD at [facility] OR ??? PRO REMOVE ARMPITS LYMPH NODES COMPLT Left 04/26/2017 LYMPHADENECTOMY, AXILLARY, COMPLETE (WRVU 13.87) performed by Jolie Menendez MD at [facility] OR ??? PRO REPLACE TISSUE ONLINE ACTIVIST Bilateral 12/12/2017 TISSUE ONLINE ACTIVIST REPLACEMENT, WITH PERMANENT PROSTHESIS, SUSAN (WRVU 8.01) performed by Mali Lakhani MD at [facility] OR ??? PRO REVISE BREAST RECONSTRUCTION Left 06/22/2017 REVISION OF RECONSTRUCTED BREAST (WRVU 10.41) performed by Mali Lakhani MD at [facility] OR ??? PRO REVISE BREAST RECONSTRUCTION Bilateral 12/12/2017 REVISION OFRECONSTRUCTED BREAST, SUSAN (WRVU 10.41) performed by Mali Lakhani MD at [facility] OR ??? [...] file Gets together: Not on file Attends voodoo service: Not on file Active member of [...] Lakhani MD - 10/18/2018 8:57 PM EDT [facility] Operative Note Patient Name: Wendy Sandoval : [id number] MR#: [id number] Case Date: 10/18/2018 Surgeon: Surgeon(s) and Role: [...] began by performing lymphatic imaging utilizing the [employer] imaging system. Small aliquots of indocyanine green [...] 01/22/2024 10:30 AM EST Appointment Mammography/[place] [address] Ladi Mendosa MD [facility] [place] [address] 01/30/2024 11:30 AM EST Office Visit Dermatology at [facility] [address] [place] [address] Nilda Luis MD [facility] [place] [address] 02/14/2024 7:30 AM EST Appointment [place] [address] Joanna Watts MD [facility] [address] documented as of this encounter Procedures Procedure Name Priority Date/Time Associated Diagnosis Comments Iv Inj To Test Blood Flow In Flap/Graft (58567) Yes 10/18/2018 3:43 PM EDT S/P breast reconstruction, bilateral Incision Of Lymph Channels (45159) Yes 10/18/2018 3:43 PM EDT S/P breast [...] 1355 (Given - Provid er: Natalya Murillo RN)2050 (Given - Provider: Jasmin Wilson RN) bacitracin [...] Sosa 10/17/18 at 1958, Until Sun10/18/18 at 225, Pain, Routine prochlorperazine (COMPAZINE) injection 5 mg [...] RN) documented in this encounter Care Teams Olericulture Teacher Relationship Specialty Start Date End Date Trinh Coates MD [facility] [address] [place] [address] PCP - General 01/11/10 documented as of this encounter
--- OUTSIDE RECORDS SUMMARY | 2023-09-25 11:45 | XMS_ITS | Encounter Summary ---
Author Organization [facility] [place] [address] Care Team Providers Care Grinder Operator Tool Name Role Phone Trinh Coates MD Primary Care Provider [phone] Reason for Referral * Diagnostic Test (Routine) - Closed Specialty Diagnoses / Procedures Referred By Diamante marin Referred To Contact Radiology Diagnoses Primary hyperaldosteronism Procedures IR Adrenal Vein Sampling Marcos Dey MD [facility] [place] [address] [place] [address] Referral ID Status Reason Start Date Expiration Date V isits Requested Visits Authorized [id number] Closed Specialty Service Requested 06/26/2018 06/26/2019 1 1 Encounter Details Date Type Department Care Team (Latest Contact Info) Description 06/26/2018 [place] [address] Marcos Dey MD [facility] [place] [address] Primary hyperaldosteronism Social History Tobacco [...] female with history of Invasive ductal carcinoma ER/GA +++, HER-2/pat negative [id number], s/p bilateral mastectomy and adjuvant chemotherapy, primary hyperparathyroidism s/p parathyroidectomy, and longstanding hypertension who presented to Endocrine clinic for evaluation of hypokalemia. Lab studies show normal cortisol, but she has renin of <0.6 and aldosterone of 21 ng/dl. Hypertension relatively controlle d, but with K 2.8. To evaluate for unilateral aldosterone production, adrenal vein sampling is desired. HPI: diagnosed with toxemia during her [id number], but hypertension persisted after delivery. treated with [...] IR Drain Check/Change/Remove 11/20/2017 Marcos Dey MD [facility] INTERVENTIONL RAD ??? IR MEDIPORT REMOVAL 01/25/2018 IR Mediport Removal 01/25/2018 Scooby Muñoz APRN [facility] INTERVENTIONL RAD ??? PRG EMG, LARYNX N/A 11/02/2015 FACIAL NERVE MONITORING, SETUP LARYNGEAL performed by Valentina Lucas MD at [facility] MAIN OR ??? PRO BREAST RECONSTRUC W FREE FLAP Bilateral 04/26/2017 @BREAST RECONSTRUCTION W/ FREE FLAP, SUSAN (WRVU 42.58) performed by Andre Gimenez MD at [facility] [place] ??? PRO BREAST RECONSTRUC W FREE FLAP, W/O IMPLANT Bilateral 12/12/2017 @BREAST RECONSTRUCTION W/ LAT DORSI FLAP,W/O IMPLANT, SUSAN (WRVU 23.36) performed by Andre Gimenez MD at [facility] MAIN OR ??? PRO BREAST RECONSTRUC W TISS EXPANDR Bilateral 04/26/2017 BREAST RECONSTRUCTION, IMMEDIATE OR DELAYED, W/ TISSUE LABORER EGG PRODUCING FARM, INCLUDING SUBSEQUENT EXPANSION (WRVU 18.5) performed by Andre Gimenez MD at [facility] OR ? ? PRO DEBRIDEMENT SUBCUTANEOUS TISSUE 20 SQCM/< 06/22/2017 DEBRIDEMENT SKIN AND SUBCU, BREAST (WRVU 1.01) performed by Andre Gimenez MD at [facility] OR ??? PRO EXPLORE PARATHYROID GLANDS N/A 11/02/2015 PARATHYROIDECTOMY OR EXPLORATION OF PARATHYROID(S) performed by Valentina Lucas MD at [facility] OR ? ? PRO FULL THICK GRFT TRUNK <20 SQCM Bilateral 04/26/2017 FTSG, FREE, DIR CLOSE DONOR SITE, TRUNK, 20 SQ CM OR LESS (WRVU 9.15) performed by Andre Gimenez MD at [facility] OR ??? PRO MASTECTOMY, SIMPLE, COMPLETE Bilateral 04/26/2017 MASTECTOMY, SIMPLE, COMPLETE-SUSAN (WRVU 15.85) performed by Jolie Menendez MD at [facility] OR ??? PRO PARTIAL REMOVAL OF RIB Bilateral 04/26/2017 EXCISION OF RIB, PARTIAL (WRVU 7.26) performed by Andre Gimenez MD at [facility] OR ??? PRO REMOVE ARMPITS LYMPH NODES COMPLT Left 04/26/2017 LYMPHADENECTOMY, AXILLARY, COMPLETE (WRVU 13.87) performed by Jolie Menendez MD at [facility] OR ??? PRO REPLACE TISSUE LABORER EGG PRODUCING FARM Bilateral 12/12/2017 TISSUE LABORER EGG PRODUCING FARM REPLACEMENT, WITH PERMANENT PROSTHESIS, SUSAN (WRVU 8.01) performed by Andre Gimenez MD at [facility] OR ??? PRO REVISE BREAST RECONSTRUCTION Left 06/22/2017 REVISION OF RECONSTRUCTED BREAST (WRVU 10.41) performed by Andre Gimenez MD at [facility] OR ??? PRO REVISE BREAST RECONSTRUCTION Bilateral 12/12/2017 REVISION OFRECONSTRUCTED BREAST, SUSAN (WRVU 10.41) performed by nAdre Gimenez MD at [facility] OR ??? PRO THYMECTOMY, TRANSCERVICAL N/A 11/02/2015 THYMECTOMY, TRANSCERVICAL APPROACH performed by Valentina Lucas MD at [facility] OR ??? SHOULDER SURGERY Left [...] file Gets together: Not on file Attends presybeterian service: Not on file Active member of [...] 01/22/2024 10:30 AM EST Appointment Mammography/[place] [address] Ladi Mendosa MD [facility] HEMATOLOGY [place] [address] 01/30/2024 11:30 AM EST Office Visit Dermatology at [facility] [address] [place] [address] Nilda Luis MD [facility] [place] [address] 02/14/2024 7:30 AM [place] [address] Joanna Watts MD [facility] [place] [address] documented as of this encounter Results * [...] saturation. ??Procedure was performed in accordance with [facility] protocol. ??An IV infusion of 50 [...] obtained with wire in place through a [id number]. ??Specimen was sent for stat cortisol (08:34)and [...] unspecified documented in this encounter Care Teams Grinder Operator Tool Relationship Specialty Start Date End Date Trinh Coates MD [address] [facility] [address] [place] [address] PCP - General 01/11/10 documented as of this encounter
--- OUTSIDE RECORDS SUMMARY | 2023-09-25 11:45 | XMS_ITS | Encounter Summary ---
Author Organization [facility] Address [facility] [place] [address] Care Team Providers Care Production Lapping Machine Operator Name Role Phone Trinh Coates MD Primary Care Provider [phone] Encounter Details Date Type Department Care Team (Late st Contact Info) Description 11/22/2018 Telephone Hematology [place] [address] Mana Hardin RN Social History [...] for compression glove and sleeve refaxed to [facility] at [phone]. documented in this encounter Plan of Treatment Upcoming Encounters Date Type Department Care Team (Late st Contact Info) Description 01/22/2024 10:30 AM EST Appointment Mammography/[place] [address] Ladi Mendosa MD [facility] [place] [address] 01/30/2024 11:30 AM EST Office Visit Dermatology at [facility] [address] [place] [address] Nilda Luis MD [facility] [place] [address] 02/14/2024 7:30 AM EST Appointment Radiology at [facility] [place] [address] Joanna Watts MD [facility] [place] [address] documented as of this encounter Visit Diagnoses Not on filedocumented in this encounter Care Teams Production Lapping Machine Operator Relationship Specialty Start Date End Date Trinh Coates MD [facility] [address] [facility] [address] [place] [address] PCP - General 01/11/10 documented as of this encounter
--- OUTSIDE RECORDS SUMMARY | 2023-09-25 11:45 | XMS_ITS | Encounter Summary ---
Author Organization [facility] [place] [address] Care Team Providers Care Service Desk Associate Name Role Phone Trinh Coates MD Primary Care Provider [phone] Reason for Referral * Diagnostic Test (Routine) - Closed Specialty Diagnoses / Procedures Referred By Contac t Referred To Contact Radiology Diagnoses S/P breast reconstruction, bilateral Procedures NM Lymphoscintigraphy w Imaging Peripheral Edema Andre Gimenez MD [facility] [place] [address] [place] [address] Referral ID Status Reason Start Date Expiration Date V isits Requested Visits Authorized [id number] Closed Specialty Service Requested 07/24/2018 07/24/2019 1 1 Reason for Visit * Diagnostic Test (Routine) - Closed Specialty Diagnoses / Procedures Referred By Contac t Referred To Contact Radiology Diagnoses S/P breast reconstruction, bilateral Procedures NM Lymphoscintigraphy w Imaging Peripheral Edema Andre Gimenez MD [facility] [place] [address] [place] [address] Referral ID Status Reason Start Date Expiration Date V isits Requested Visits Authorized [id number] Closed Specialty Service Requested 07/24/2018 07/24/2019 1 1 Encounter Details Date Type Department Care Team (Latest Contact Info) Description 08/14/2018 9:47 AM EDT Hospital Encounter Nuclear Medicine at [facility] [place] [address] Andre Gimenez MD [facility] [place] [address] S/P breast reconstruction, bilateral Discharge Disposition: Home [...] 01/22/2024 10:30 AM EST Appointment Mammography/[place] [address] Ladi Mendosa MD [facility] DR HEMATOLOGY [place] [address] 01/30/2024 11:30 AM EST Office Visit Dermatology at [facility] [address] [place] [address] Nilda Luis MD [facility] [place] [address] 02/14/2024 7:30 AM EST [place] [phone] Joanna Watts MD [facility] [place] [address] documented as of this encounter Procedures Procedure [...] this report, please contact the number below. Andre Gimenez MD [facility] NM ORDERABLES documented in this encounter Visit [...] mCi documented in this encounter Care Teams Service Desk Associate Relationship Specialty Start Date End Date Trinh Coates MD [address] [place] [address] PCP - General 01/11/10 documented as of this encounter
--- OUTSIDE RECORDS SUMMARY | 2023-09-25 11:45 | XMS_ITS | Encounter Summary ---
Author Organization [facility] Address [facility] [place] [address] Care Team Providers Care Crossband Layer Name Role Phone Trinh Coates MD Primary Care Provider [phone] Encounter Details Date Type Department Care Team (Late st Contact Info) Description 09/04/2018 Telephone Dermatology at [facility] [address] [place] [address] Tino Mann MD [facility] [address] [place] [address] Social History Tobacco Use Types Packs/Day Years [...] 01/22/2024 10:30 AM EST Appointment Mammography/[place] [address] Ladi Mendosa MD [facility] [place] [address] 01/30/2024 11:30 AM EST Office Visit Dermatology at [place] [address] [place] [address] Nilda Luis MD [facility] [place] [address] 02/14/2024 7:30 AM EST Appointment Radiology at [place] [phone] Joanna Watts MD [facility] [place] [address] documented as of this encounter Visit Diagnoses Not on filedocumented in this encounter Care Teams Crossband Layer Relationship Specialty Start Date End Date Trinh Coates MD [facility] [address] [place] [address] PCP - General 01/11/10 documented as of this encounter
--- OUTSIDE RECORDS SUMMARY | 2023-09-25 11:45 | XMS_ITS | Encounter Summary ---
Author Organization [facility] [place] [address] Care Team Providers Care Office Services Clerk Name Role Phone Trinh Coates MD Primary Care Provider [phone] Encounter Details Date Type Department Care Team (Late st Contact Info) Description 07/31/2018 Telephone Dermatology at [facility] [address] [place] [phone] Katie Lombardo, RN Social History Tobacco Use [...] 01/22/2024 10:30 AM EST Appointment Mammography/[place] [address] Ladi Mendosa MD [facility] HEMATOLOGY [place] [address] 01/30/2024 11:30 AM EST Office Visit Dermatology at [place] [address] [place] [address] Nilda Luis MD [facility] [address] 02/14/2024 7:30 AM EST Appointment Radiology at [place] [phone] Joanna Watts MD [facility] [place] [address] documented as of this encounter Visit Diagnoses Diagnosis High risk medication use Encounter for long-term (current) use of other medications documented in this encounter Care Teams Office Services Clerk Relationship Specialty Start Date End Date Trinh Coates MD [address] [place] [address] PCP - General 01/11/10 documented as of this encounter
--- OUTSIDE RECORDS SUMMARY | 2023-09-25 11:45 | XMS_ITS | Encounter Summary ---
Author Organization [facility] Address [facility] [place] [address] Care Team Providers Care Is Architect Name Role Phone Trinh Coates MD Primary Care Provider [phone] Encounter Details Date Type Department Care Team (Late st Contact Info) Description 09/02/2018 Telephone Dermatology at [facility] [address] [place] [address] Tino Mann MD [facility] [address] [place] [address] Social History Tobacco Use Types Packs/Day Years [...] from Wendy Sandoval stating she called the [facility] specialty pharmacy in regards to her stelara medication and they had no record of receiving anything from us. I noticed that a script was sent on 08/16. I told Wendy I would send a message to Dr. Mann to see if he could follow up on this. The best number to reach her back is [phone] and it is ok to leave a detailedmessage. documented in this encounter Plan of Treatment Upcoming Encounters Date Type Department Care Team (Late st Contact Info) Description 01/22/2024 10:30 AM EST Appointment Mammography/DXA at [place] [phone] Ladi Mendosa MD [facility] HEMATOLOGY [place] [address] 01/30/2024 11:30 AM EST Office Visit Dermatology at [facility] [address] [place] [address] Nilda Luis MD [facility] [place] [place] [address] 02/14/2024 7:30 AM EST Appointment Radiology at [place] [phone] Joanna Watts MD [facility] [place] [address] documented as of this encounter Visit Diagnoses Not on filedocumented in this encounter Care Teams Is Architect Relationship Specialty Start Date End Date Trinh Coates MD [facility] [address] [place] [address] PCP - General 01/11/10 documented as of this encounter
--- OUTSIDE RECORDS SUMMARY | 2023-09-25 11:45 | XMS_ITS | Encounter Summary ---
Author Organization [facility] Address [facility] [place] [address] Care Team Providers Care Stamp Maker Name Role Phone Trinh Coates MD Primary Care Provider [phone] Encounter Details Date Type Department Care Team (Late st Contact Info) Description 08/08/2018 Telephone Dermatology at [facility] [address] [place] [address] Tino Mann MD [facility] [address] [place] [address] Social History Tobacco Use Types Packs/Day Years [...] Wendy's medication. He will be available at [phone] until 1pm. Message passed along to Dr. Mann verbally. documented in this encounter Plan of Treatment Upcoming Encounters Date Type Department Care Team (Late st Contact Info) Description 01/22/2024 10:30 AM EST Appointment Mammography/[place] [address] Ladi Mendosa MD [facility] [place] [address] 01/30/2024 11:30 AM EST Office Visit Dermatology at [place] [address] [place] [address] Nilda Luis MD [facility] [place] [address] 02/14/2024 7:30 AM EST Appointment [place] [address] Joanna Watts MD [facility] [place] [address] documented as of this encounter Visit Diagnoses Not on filedocumented in this encounter Care Teams Stamp Maker Relationship Specialty Start Date End Date Trinh Coates MD [facility] [address] [place] [address] PCP - General 01/11/10 documented as of this encounter
--- OUTSIDE RECORDS SUMMARY | 2023-09-25 11:45 | XMS_ITS | Encounter Summary ---
Author Organization [facility] Address [facility] [place] [address] Care Team Providers Care Inspector Golf Ball Name Role Phone Trinh Coates MD Primary Care Provider [phone] Reason for Visit * Auth/Cert Specialty Diagnoses [...] Expiration Date Visits Re quested Visits Authorized [id number] 1 1 Encounter Details Date Type Department Care Team (Late st Contact Info) Description 10/18/2018 3:44 PM EDT Anesthesia Event [place] [address] Cesario Segundo MD [facility] [place] [address] Lakeisha Morse MD [facility] [place] [address] Anesthesia Record Procedure Summary Procedure Name Responsible [...] without issue. VSS. Full report given to CASING COOKER. Meds Name Total Propofol 180 mg Propofol [...] 10/17/21 1715 by Yara Ly Incision 12/12/17; 1632; scapula; 10/17/21 (LDA [...] cephalic vein (lateral side of arm), right; [id number] catheter system; 22 gauge, 1 in length, [...] Procedure Summary Date: 10/18/18 Room / Location: [facility] OR [facility] MAIN OR Anesthesia Start: 1543 Anesthesia Stop: [...] Anesthesiologist: Dinesh Gupta MD; Cesario Segundo MD RESHIPPING CLERK: Kelly Garsia CRNA Nurses Supervisor: Lakeisha Morse MD Vitals Value Taken Time BP 133/92 10/18/2018 7:45 PM Temp Pulse Resp SpO2 92 % 10/18/2018 7:51 PM Pain Level Vitals shown include unvalidated device data. Patient [facility] Level of Consciousness: Awake and Alert Pain [...] IR Mediport Removal 01/25/2018 Scooby Muñoz, AARTI [facility] INTERVENTIONL RAD ??? PRG EMG, LARYNX N/A 11/02/2015 FACIAL NERVE MONITORING, SETUP LARYNGEAL performed by Valentina Lucas MD at [facility] MAIN OR ??? PRO BREAST RECONSTRUC W FREE FLAP Bilateral 04/26/2017 @BREAST RECONSTRUCTION W/ FREE FLAP, SUSAN (WRVU 42.58) performed by Andre Gimenez MD at [facility] [place] ??? PRO BREAST RECONSTRUC W FREE FLAP, W/O IMPLANT Bilateral 12/12/2017 @BREAST RECONSTRUCTION W/ LAT DORSI FLAP,W/O IMPLANT, SUSAN (WRVU 23.36) performed by Andre Gimenez MD at [facility] MAIN OR ??? PRO BREAST RECONSTRUC W TISS EXPANDR Bilateral 04/26/2017 BREAST RECONSTRUCTION, IMMEDIATE OR DELAYED, W/ TISSUE TABLE MACHINE OPERATOR, INCLUDING SUBSEQUENT EXPANSION (WRVU 18.5) performed by Andre Gimenez MD at [facility] OR ? ? PRO DEBRIDEMENT SUBCUTANEOUS TISSUE 20 SQCM/< 06/22/2017 DEBRIDEMENT SKIN AND SUBCU, BREAST (WRVU 1.01) performed by Andre Gimenez MD at [facility] OR ??? PRO EXPLORE PARATHYROID GLANDS N/A 11/02/2015 PARATHYROIDECTOMY OR EXPLORATION OF PARATHYROID(S) performed by Valentina Lucas MD at [facility] OR ? ? PRO FULL THICK GRFT TRUNK <20 SQCM Bilateral 04/26/2017 FTSG, FREE, DIR CLOSE DONOR SITE, TRUNK, 20 SQ CM OR LESS (WRVU 9.15) performed by Andre Gimenez MD at [facility] OR ??? PRO MASTECTOMY, SIMPLE, COMPLETE Bilateral 04/26/2017 MASTECTOMY, SIMPLE, COMPLETE-SUSAN (WRVU 15.85) performed by Jolie Menendez MD at [facility] OR ??? PRO PARTIAL REMOVAL OF RIB Bilateral 04/26/2017 EXCISION OF RIB, PARTIAL (WRVU 7.26) performed by Andre Gimenez MD at [facility] OR ??? PRO REMOVE ARMPITS LYMPH NODES COMPLT Left 04/26/2017 LYMPHADENECTOMY, AXILLARY, COMPLETE (WRVU 13.87) performed by Jolie Menendez MD at [facility] OR ??? PRO REPLACE TISSUE TABLE MACHINE OPERATOR Bilateral 12/12/2017 TISSUE TABLE MACHINE OPERATOR REPLACEMENT, WITH PERMANENT PROSTHESIS, SUSAN (WRVU 8.01) performed by Andre Gimenez MD at [facility] OR ??? PRO REVISE BREAST RECONSTRUCTION Left 06/22/2017 REVISION OF RECONSTRUCTED BREAST (WRVU 10.41) performed by Andre Gimenez MD at [facility] OR ??? PRO REVISE BREAST RECONSTRUCTION Bilateral 12/12/2017 REVISION OFRECONSTRUCTED BREAST, SUSAN (WRVU 10.41) performed by Andre Gimenez MD at [facility] OR ??? PRO THYMECTOMY, TRANSCERVICAL N/A 11/02/2015 THYMECTOMY, TRANSCERVICAL APPROACH performed by Valentina Lucas MD at [facility] OR ??? SHOULDER SURGERY Left ??? [...] 36.5 -- PLATELET 338 365* 07/24/18 07/12/181613 06 NA 143 -- K 3.8 -- CL [...] 01/22/2024 10:30 AM EST Appointment Mammography/DXA at [place] [phone] Ladi Mendosa MD [facility] [address] [place] [address] 01/30/2024 11:30 AM EST Office Visit Dermatology at [address] [address] Nilda Luis MD [facility] [place] [address] 02/14/2024 7:30 AM EST [place] [address] Joanna Watts MD [facility] [place] [address] documented as of this encounter Visit Diagnoses [...] mL/hr documented in this encounter Care Teams Inspector Golf Ball Relationship Specialty Start Date End Date Trinh Coates MD [facility] [address] [place] [address] PCP - General 01/11/10 documented as of this encounter
--- OUTSIDE RECORDS SUMMARY | 2023-09-25 11:45 | XMS_ITS | Encounter Summary ---
Author Organization [facility] Address [facility] [place] [address] Care Team Providers Care Embedded Software Development Engineer Name Role Phone Trinh Coates MD Primary Care Provider [phone] Reason for Referral * Physical Therapy (Routine) - Closed Specialty Diagnoses / Procedures Referred By Diamante marin Referred To Contact Diagnoses Lymphedema Jolene Azevedo APRN [facility] [place] [address] Unknown None Referral ID Status Reason Start Date Expiration Date V isits Requested Visits Authorized [id number] Closed Evaluate and Treat 10/30/2018 04/28/2019 12 12 Reason for Visit * Reason Comments Follow Up Surgery s/p lymphatic mappin g, lymphevenous bypass Encounter Details Date Type Department Care Team (Late st Contact Info) Description 10/30/2018 10:20 AM EDT Office [place] [address] oJlene Azevedo WOOD MOLDER [facility] [place] [address] Lymphedema Social History Tobacco Use Types Packs/Day [...] and closure. Debridement of umbilicus. Deflation of asphalt heater tender volume, This leaves 450 cc in the left tissue asphalt heater tender and 500 cc on the right side Date of surgery: 04/26/17 Procedure(s): Bilateral breast reconstruction with attempted SALVADOR flaps, eventual tissue asphalt heater tender placement with Richardson Artoura 600 cc expanders placed bilaterally and [...] no erythema, no evidence of cellulitis. Impression: Wendy Sandoval is a 53 y.o. [...] 01/22/2024 10:30 AM EST Appointment Mammography[place] [phone] Ladi Mendosa MD [facility] [place] [address] 01/30/2024 11:30 AM EST Office Visit Dermatology at [address] [phone] Nilda Luis MD [facility] [place] [address] 02/14/2024 7:30 AM EST Appointment Radiology at [place] [phone] Joanna Watts MD [facility] [place] [address] Scheduled Referrals Name Type Priority Associated Diagnoses Orde r Schedule Referral to Physical Therapy Outpatient Referral Routine Lymphedema Ordered: 10/30/2018 documented as of this encounter Visit Diagnoses Diagnosis Lymphedema Other lymphedema documented in this encounter Care Teams Embedded Software Development Engineer Relationship Specialty Start Date End Date Trinh Coates MD [facility] [address] [place] [address] PCP - General 01/11/10 documented as of this encounter
--- OUTSIDE RECORDS SUMMARY | 2023-09-25 11:45 | XMS_ITS | Encounter Summary ---
Author Organization [facility] Address [facility] [place] [address] Care Team Providers Care Wind Science And Planning Name Role Phone Trinh Coates MD Primary Care Provider [phone] Reason for Visit * Reason Comments Psoriasis * Consultation (Routine) - Specialty Diagnoses / Procedures Referred By Diamante marin Referred To Contact Dermatology Diagnoses PSORIASIS Trinh Coates MD [facility] [address] [place] [address] [facility] [address] [place] [address] Referral ID Status Reason Start Date Expiration Date V isits Requested Visits Authorized [id number] Consult, Test & Treat Connection Center 07/01/2018 07/01/2019 6 6 Encounter Details Date Type Department Care Team (Late st Contact Info) Description 07/24/2018 3:30 PM EDT Office Visit Dermatology at [facility] [address] [place] [address] Tino Mann MD [facility] DR LIDIA [place] [address] High risk medications (not anticoagulants) [...] her nipples are. She has been using Tana moisture lotion. No other topicals. Hx of [...] by Tino Mann MD Resident in Dermatology [facility] Patient seen in conjunction with staff marketing education teacher: Section of Dermatology [facility] * Ernestine Gaines MD - 07/24/2018 3:30 [...] 10:30 AM EST Appointment Mammography/[place] [address] Ladi Mendosa MD [facility] H[place]ATOLOG[place] [address] 01/30/2024 11:30 AM EST Office Visit Dermatology at [facility] [address] [place] [address] Nilda Luis MD [facility] [place] [address] 02/14/2024 7:30 AM EST Appointment [place] [address] Joanna Watts MD [facility] [place] [address] documented as of this encounter Procedures Procedure [...] (not anticoagulants) long-term use COMPREHENSIVE METABOLIC PANEL Routine 07/24/2018 4:14 PM EDT High risk medications (not anticoagulants) long-term use documented in this encounter Results * (ABNORMAL) Differential, Automated (07/24/2018 4:14 PM EDT) Neutrophil % 69.5 % [facility] Neutrophil Absolute 6.68(H) 1.70 - 6.10 x10(3)/mc L [facility] Lymph % 14.6 % [facility] Lymphocytes Abs 1.4 0.9 - 3.2 x10(3)/mc L [facility] Monocyte % 9.0 % [facility] Monocyte Abs 0.9 0.3 - 0.9 x10(3)/mc L [facility] Eos % 5.3 % [facility] Eosinophils Abs 0.5(H) 0.0 - 0.4 x10(3)/mc L [facility] Basophil % 1.2 % [facility] Baso Absolute 0.1 0.0 - 0.1 x10(3)/mc L [facility] Immature Gran % 0.40 % [facility] Comment: Immature granulocytes(IG's)percentage and absolute count will include metamyelocytes, myelocytes, and promyelocytes. Blood smears from CBCs yielding IG's will be scanned manually for concordance. If this scan disagrees with the automated IG or if promyelocytes are noted, a manual differential will be performed. Immature Gran Absolute 0.04 0.00 - 0.04 x10(3)/mc L [facility] Blood specimen (specimen) 07/24/2018 4:14 PM EDT 07/24/2018 5:55 PM EDT Narrative Resulting Agency Comment Spec In Lab Tino Mann MD HEMATOLOGY ORDERABLE S [facility] [place] [address] * (ABNORMAL) Hemogram (07/24/2018 4:14 PM EDT) White Blood Cell 9.6(H) 4.0 - 9.5 x10(3)/mc L [facility] Red Blood Cell 3.83(L) 4.00 - 5.21 x10(6)/mc L [facility] Hemoglobin 11.8 11.7 - 15.5 gm/dL [facility] Hematocrit 36.5 35.7 - 45.8 % [facility] Mean Cell Volume 95.3(H) 82.6 - 94.4 fL [facility] Mean Cell Hemoglobin 30.8 27.1 - 32.0 pg [facility] Mean Cell Hemoglobin Concentration 32.3 31.7 - 35.0 gm/dL [facility] Platelet 338 145 - 357 x10(3)/mc L [facility] RDW Standard Deviation 50.1(H) 37.0 - 46.0 fL [facility] RDW coefficient of variation 14.3(H) 11.5 - 14.1 % [facility] Mean Platelet Volume 9.5 7.6 - 12.9 fL [facility] NRBC% auto 0.0 % [facility] NRBC Absolute 0.000 0.000 - 0.000 x10(3)/mc L [facility] Blood specimen (specimen) 07/24/2018 4:14 PM EDT 07/24/2018 5:55 PM EDT Narrative Resulting Agency Comment Spec In Lab Tino Mann MD HEMATOLOGY ORDERABLE S Performing Organization Address [facility]/ZIP Co de Phone Number [facility] [place] [address] * Hepatitis C Antibody (07/24/2018 4:14 PM EDT) Hepatitis C Antibody Negative Negative [facility] Blood specimen (specimen) 07/24/2018 4:14 PM EDT 07/24/2018 6:02 PM EDT Narrative Resulting Agency Comment Spec In Lab Ernestine Gaines MD CHEMISTRY ORDERABLES Performing Organization Address [facility] Co de Phone Number [facility] [place] [address] * Hepatitis B Surface Antigen (07/24/2018 4:14 PM EDT) Hepatitis B Surface Antigen Negative Negative [facility] Blood specimen (specimen) 07/24/2018 4:14 PM EDT 07/24/2018 6:02 PM EDT Narrative Resulting Agency Comment Spec In Lab Ernestine Gaines MD CHEMISTRY ORDERABLES Performing Organization Address [facility] Co de Phone Number [facility] [place] [address] * Hepatitis B Surface Antibody (07/24/2018 4:14 PM EDT) Hepatitis B Surface Antibody, Quantitative <3.5 IU/L [facility] Comment: HepB Surface Ab Quant: Unvaccinated: < 8.5 IU/L Vaccinated: > 11.5 IU/L Hepatitis B Surface Antibody Negative [facility] Comment: Patient is presumed to be not vaccinated or immune to HBV infection. Expected Results: Vaccinated: Positive Unvaccinated: Negative Blood specimen (specimen) 07/24/2018 4:14 PM EDT 07/24/2018 6:02 PM EDT Narrative Resulting Agency Comment Spec In Lab Ernestine Gaines MD CHEMISTRY ORDERABLES Performing Organization Address City/[facility]/ZIP Co de Phone Number [facility] [place] [address] * Hepatitis A Antibody, Total (07/24/2018 4:14 PM EDT) Hepatitis A ANTIBODY, TOTAL Negative Negative [facility] Blood specimen (specimen) 07/24/2018 4:14 PM EDT 07/24/2018 6:02 PM EDT Narrative Resulting Agency Comment Spec In Lab Ernestine Gaines MD CHEMISTRY ORDERABLES Performing Organization Address City/[facility] Co de Phone Number [facility] [place] [address] * QuantiFERON-TB Gold (07/24/2018 4:14 PM EDT) Quantiferon Nil 0.040 IU/mL [facility] QFT TB Ag1-Nil 0.000 IU/mL [facility] QFT TB Ag2-Nil -0.020 IU/mL [facility] Quantiferon Mitogen-Nil >10.000 IU/mL [facility] Quantiferon-TB Gold Negative Negative [facility] Quantiferon Tb Interp M. tuberculosis [...] affect immune function, or other immunological factors. [facility] Comment: The performance of the [...] In Lab Ernestine Gaines MD CHEMISTRY ORDERABLES [facility] [place] [address] * (ABNORMAL) Comprehensive metabolic panel (non-fasting) (07/24/2018 4:14 PM EDT) Glucose 141 65 - 199 mg/dL [facility] Comment:Diabetes: >=200 mg/d L plus symptoms Blood Urea Nitrogen 29(H) 8 - 18 mg/dL [facility] Creatinine 1.27(H) 0.70 - 1.20 mg/dL [facility] Sodium 143 135 - 145 mmol/L [facility] Potassium 3.8 3.5 - 5.0 mmol/L [facility] Comment: Please note: ??Patients with WBC >100,000 may have falsely elevated Potassium levels. ??For accurate Potassium quantification in these patients send serum separator tube (gold top) for subsequent determinations. ??Contact the Clinical Chemistry Laboratory if there are any questions. Chloride 102 98 - 107 mmol/L [facility] Carbon Dioxide 27 22 - 31 mmol/L [facility] Anion Gap 14 5 - 15 mmol/L [facility] Calcium 9.1 8.5 - 10.5 mg/dL [facility] Protein, Total 6.7 6.1 - 8.0 gm/dL [facility] Albumin 3.9 3.2 - 5.2 gm/dL [facility] Aspartate Aminotransferase 21 0 - 30 unit/L [facility] Alanine Aminotransferase 21 0 - 30 unit/L [facility] Alkaline Phosphatase 79 40 - 104 unit/L [facility] Bilirubin, Total 0.5 0.2 - 1.3 mg/dL [facility] Est Glomerular Filtration Rate 47(L) >=60 mL/min/1. 73 m?? [facility] Comment: The eGFR was calculated using the CKD-EPI equation. As with all creatinine based estimates of kidney function, eGFR values calculated with the CKD-EPI equation are not accurate in patients with acute kidney failure, extremes of body mass or the acutely ill. http://[employer]nk[facility] eGFR 55(L) >=60 mL/min/1. 73 m?? [facility] Comment: The eGFR was calculated using the CKD-EPI equation. As with all creatinine based estimates of kidney function, eGFR values calculated with the CKD-EPI equation are not accurate in patients with acute kidney failure, extremes of body mass or the acutely ill. http://[employer]nk[facility] Blood specimen (specimen) 07/24/2018 4:14 PM EDT 07/24/2018 6:02 PM EDT Narrative Resulting Agency Comment Spec In Lab Ernestine Gaines MD [place] [address] documented in this encounter Visit Diagnoses Diagnosis High risk medications (not anticoagulants) long-term use Encounter for long-term (current) use of other medications Psoriasis Other psoriasis documented in this encounter Care Teams Wind Science And Planning Relationship Specialty Start Date End Date Trinh Coates MD [address] [place] [address] PCP - General 01/11/10 documented as of this encounter
--- OUTSIDE RECORDS SUMMARY | 2023-09-25 11:45 | XMS_ITS | Encounter Summary ---
Author Organization [facility] [place] [address] Care Team Providers Care Casting Molder Name Role Phone Trinh Coates MD Primary Care Provider [phone] Reason for Visit * Auth/Cert Specialty Diagnoses [...] Expiration Date Visits Re quested Visits Authorized [id number] 1 1 Encounter Details Date Type Department Care Team (Latest Contact Info) Description 10/18/2018 1:05 PM EDT - 10/18/2018 8:57 PM EDT Hospital Encounter [place] [phone] Mali Lakhani MD [facility] [place] [address] S/P breast reconstruction, bilateral Discharge Disposition: Home [...] office hours: Sunday - Sunday 8am-5pm call [phone]. On weekends or after hours call [phone] and ask the cocoa press operator to page the plastic surgery resident substation mechanic. MEDICATIONS: You may resume your home medications. CONTACT INFORMATION: During office hours: Sunday through Sunday 8 am to 5 pm Call [phone] On weekends or after hours: Call [phone] and ask the cocoa press operator to page the Plastic Surgery Resident substation mechanic. NEXT STEPS: You will have an appointment [...] IR Drain Check/Change/Remove 11/20/2017 Marcos Dey MD [facility] RAD ??? IR MEDIPORT REMOVAL 01/25/2018 IR Mediport Removal 01/25/2018 Scooby Muñoz APRN [facility] RAD ??? PRG EMG, LARYNX N/A 11/02/2015 FACIAL NERVE MONITORING, SETUP LARYNGEAL performed by Valentina Lucas MD at [facility] OR ??? PRO BREAST RECONSTRUC W FREE FLAP Bilateral 04/26/2017 @BREAST RECONSTRUCTION W/ FREE FLAP, SUSAN (WRVU 42.58) performed by Mali Lakhani MD at [facility] [place] ??? PRO BREAST RECONSTRUC W FREE FLAP, W/O IMPLANT Bilateral 12/12/2017 @BREAST RECONSTRUCTION W/ LAT DORSI FLAP,W/O IMPLANT, SUSAN (WRVU 23.36) performed by Mali Lakhani MD at [facility] OR ??? PRO BREAST RECONSTRUC W TISS EXPANDR Bilateral 04/26/2017 BREAST RECONSTRUCTION, IMMEDIATE OR DELAYED, W/ TISSUE CORPORATE LOGISTICS MANAGER, INCLUDING SUBSEQUENT EXPANSION (WRVU 18.5) performed by Mali Lakhani MD at [facility] OR ? ? PRO DEBRIDEMENT SUBCUTANEOUS TISSUE 20 SQCM/< 06/22/2017 DEBRIDEMENT SKIN AND SUBCU, BREAST (WRVU 1.01) performed by Mali Lakhani MD at [facility] OR ??? PRO EXPLORE PARATHYROID GLANDS N/A 11/02/2015 PARATHYROIDECTOMY OR EXPLORATION OF PARATHYROID(S) performed by Valentina Lucas MD at [facility] OR ? ? PRO FULL THICK GRFT TRUNK <20 SQCM Bilateral 04/26/2017 FTSG, FREE, DIR CLOSE DONOR SITE, TRUNK, 20 SQ CM OR LESS (WRVU 9.15) performed by Mali Lakhani MD at [facility] OR ??? PRO MASTECTOMY, SIMPLE, COMPLETE Bilateral 04/26/2017 MASTECTOMY, SIMPLE, COMPLETE-SUSAN (WRVU 15.85) performed by Jolie Menendez MD at [facility] OR ??? PRO PARTIAL REMOVAL OF RIB Bilateral 04/26/2017 EXCISION OF RIB, PARTIAL (WRVU 7.26) performed by Mali Lakhani MD at [facility] OR ??? PRO REMOVE ARMPITS LYMPH NODES COMPLT Left 04/26/2017 LYMPHADENECTOMY, AXILLARY, COMPLETE (WRVU 13.87) performed by Jolie Menendez MD at [facility] OR ??? PRO REPLACE TISSUE CORPORATE LOGISTICS MANAGER Bilateral 12/12/2017 TISSUE CORPORATE LOGISTICS MANAGER REPLACEMENT, WITH PERMANENT PROSTHESIS, USSAN (WRVU 8.01) performed by Mali Lakhani MD at [facility] OR ??? PRO REVISE BREAST RECONSTRUCTION Left 06/22/2017 REVISION OF RECONSTRUCTED BREAST (WRVU 10.41) performed by Mali Lakhani MD at [facility] OR ??? PRO REVISE BREAST RECONSTRUCTION Bilateral 12/12/2017 REVISION OFRECONSTRUCTED BREAST, SUSAN (WRVU 10.41) performed by Mali Lakhani MD at [facility] OR ??? [...] file Gets together: Not on file Attends samaritan service: Not on file Active member of [...] Lakhani MD - 10/18/2018 8:57 PM EDT [facility] Operative Note Patient Name: Wendy Sandoval : [id number] MR#: [id number] Case Date: 10/18/2018 Surgeon: Surgeon(s) and Role: [...] began by performing lymphatic imaging utilizing the [employer] imaging system. Small aliquots of indocyanine green [...] 01/22/2024 10:30 AM EST Appointment Mammography/[place] [address] Ladi Mendosa MD [facility] HEMATOLOGY [place] [address] 01/30/2024 11:30 AM EST Office Visit Dermatology at [facility] [address] [place] [address] Nilda Luis MD [facility] [place] [address] 02/14/2024 7:30 AM EST [place] [phone] Joanna Watts MD [facility] [place] [address] documented as of this encounter Procedures Procedure Name Priority Date/Time Associated Diagnosis Comments Iv Inj To Test Blood Flow In Flap/Graft (55685) Yes 10/18/2018 3:43 PM EDT S/P breast reconstruction, bilateral Incision Of Lymph Channels (86249) Yes 10/18/2018 3:43 PM EDT S/P breast [...] 1355 (Given - Provid er: Natalya Murillo RN)2049 (Given - Provider: Jasmin Wilson RN) bacitracin ointment (CANCELED) ONCE PRN, Starting on Sun10/18/18 at 1908, Until Sun10/18/18 at 2257, Intra-Operative (Intra-Procedure) 190 (Given - Provid er: Mali Lakhani MD) [...] RN) documented in this encounter Care Teams Casting Molder Relationship Specialty Start Date End Date Trinh Coates MD [facility] [address] [address] PCP - General 01/11/10 documented as of this encounter
--- OUTSIDE RECORDS SUMMARY | 2023-09-25 11:45 | XMS_ITS | Encounter Summary ---
Author Organization [facility] Address [facility] [place] [address] Care Team Providers Care Advertising Dispatch Clerks Supervisor Name Role Phone Trinh Coates MD Primary Care Provider [phone] Encounter Details Date Type Department Care Team (Late st Contact Info) Description 09/11/2018 Telephone Dermatology at [facility] [address] [place] [address] Tino Mann MD [facility] DR [address] [address] Social History Tobacco Use Types Packs/Day Years [...] 01/22/2024 10:30 AM EST Appointment Mammography/[place] [address] Ladi Mendosa MD [facility] [address] [place] [address] 01/30/2024 11:30 AM EST Office Visit Dermatology at [place] [address] [place] [address] Nilda Luis MD [facility] [place] [address] 02/14/2024 7:30 AM EST [place] [address] Joanna Watts MD [facility] [place] [address] documented as of this encounter Visit Diagnoses Not on filedocumented in this encounter Care Teams Advertising Dispatch Clerks Supervisor Relationship Specialty Start Date End Date Trinh Coates MD [facility] [address] [place] [address] PCP - General 01/11/10 documented as of this encounter
--- OUTSIDE RECORDS SUMMARY | 2023-09-25 11:45 | XMS_ITS | Encounter Summary ---
Author Organization [facility] Address [facility] [place] [address] Care Team Providers Care Net Developer With Wcf Name Role Phone Trinh Coates MD Primary Care Provider [phone] Encounter Details Date Type Department Care Team (Late st Contact Info) Description 07/23/2018 Orders [place] [phone] Lakeisha Reza MD [facility] [place] [address] Hyperaldosteronism Social History Tobacco Use Types Packs/Day [...] 01/22/2024 10:30 AM EST Appointment Mammography/[place] [address] Ladi Mendosa MD [facility] DR HEMATOLOGY [place] [address] 01/30/2024 11:30 AM EST Office Visit Dermatology at [facility] [address] [place] [address] Nilda Luis MD [facility] [place] [address] 02/14/2024 7:30 AM EST [place] [address] Joanna Watts MD [facility] [place] [address] documented as of this encounter Visit Diagnoses Diagnosis Hyperaldosteronism Hyperaldosteronism, unspecified documented in this encounter Care Teams Net Developer With Wcf Relationship Specialty Start Date End Date Trinh Coates MD [facility] [address] [place] [address] PCP - General 01/11/10 documented as of this encounter
--- OUTSIDE RECORDS SUMMARY | 2023-09-25 11:45 | XMS_ITS | Encounter Summary ---
Author Organization [facility] [place] [address] Care Team Providers Care Rn Acls Name Role Phone Trinh Coates MD Primary Care Provider [phone] Encounter Details Date Type Department Care Team (Late st Contact Info) Description 06/14/2018 Telephone [place] [phone] Lakeisha Reza MD [facility] [place] [address] Social History Tobacco Use Types Packs/Day Years [...] radiology and spoke with Diana Azevedo (IR MEAT COOLER) who will assist in coordinating initial IR review and scheduli ng. Lakeisha Reza PGY 4 Endocrinology Pager [phone] documented in this encounter Plan of Treatment Upcoming Encounters Date Type Department Care Team (Late st Contact Info) Description 01/22/2024 10:30 AM EST Appointment Mammography/[place] [phone] Ladi Mendosa MD [facility] [place] [address] 01/30/2024 11:30 AM EST Office Visit Dermatology at [address] [phone] Nilda Luis MD [facility] [place] [address] 02/14/2024 7:30 AM EST Appointment [place] [address] Joanna Watts MD [facility] [place] [address] documented as of this encounter Visit Diagnoses Not on filedocumented in this encounter Care Teams Rn Acls Relationship Specialty Start Date End Date Trinh Coates MD [address] [place] [address] PCP - General 01/11/10 documented as of this encounter
--- OUTSIDE RECORDS SUMMARY | 2023-09-25 11:45 | XMS_ITS | Encounter Summary ---
Author Organization [facility] [place] [address] Care Team Providers Care Community Director Name Role Phone Trinh Coates MD Primary Care Provider [phone] Encounter Details Date Type Department Care Team (Late st Contact Info) Description 08/12/2018 Telephone Hematology [place] [address] Mana Hardin RN Social History [...] 08/12/2018 2:53 PM EDT Message received from pumper gager apprentice: Wendy calls today and states that she mentioned to Dr. Barnett at her last visit that since starting Tamoxifen, she has been having itching attacks over her entire body. More disturbing to her are that the inside of her ear and her entire scalp are incessantly itchy. She saw her pin setter who confirmed that the itching is not being caused by her psoriasis. She would like to speak with someone about what she can do about the itching, and would be interested in switching to a different medication if possible. Could you please call her at her home number [phone] to discuss her options? T/C to pt: [...] try something else. Plan: Per Sally Ren TUMBLER DRIER OPERATOR: Please ask her to stop tamoxifen for 2 weeks and see if itching resolves. Pt verbalized agreement and understanding. This RN will call pt in 2 weeks to assess symptoms. documented in this encounter Plan of Treatment Upcoming Encounters Date Type Department Care Team (Late st Contact Info) Description 01/22/2024 10:30 AM EST Appointment Mammography/[place] [address] Ladi Mendosa MD [facility] [place] [address] 01/30/2024 11:30 AM EST Office Visit Dermatology at [address] [address] Nilda Luis MD [facility] [place] [address] 02/14/2024 7:30 AM EST [place] [address] Joanna Watts MD [facility] [place] [address] documented as of this encounter Visit Diagnoses Not on filedocumented in this encounter Care Teams Community Director Relationship Specialty Start Date End Date Trinh Coates MD [address] [place] [address] PCP - General 01/11/10 documented as of this encounter
--- OUTSIDE RECORDS SUMMARY | 2023-09-25 11:45 | XMS_ITS | Encounter Summary ---
Author Organization [facility] Address [facility] [place] [address] Care Team Providers Care Registered Nurse Practitioner Name Role Phone Trinh Coates MD Primary Care Provider [phone] Encounter Details Date Type Department Care Team (Late st Contact Info) Description 11/15/2018 Telephone [place]ology [place] [address] Susana Paulson APRN [facility] DR HEMATOLOGY [place] [address] Social History Tobacco Use Types Packs/Day Years [...] received. Orders entered, signed, and faxed to [facility] at [phone]. documented in this encounter Plan of Treatment Upcoming Encounters Date Type Department Care Team (Late st Contact Info) Description 01/22/2024 10:30 AM EST Appointment Mammography/[place] [address] Ladi Mendosa MD [facility] HEMATOLOGY [place] [address] 01/30/2024 11:30 AM EST Office Visit Dermatology at [facility] [address] [place] [address] Nilda Luis MD [facility] [place] [address] 02/14/2024 7:30 AM EST [place] [address] Joanna Watts MD [facility] [place] [address] documented as of this encounter Visit Diagnoses Diagnosis Malignant neoplasm of upper-outer quadrant of left breast in female, estrogen receptor positive documented in this encounter Care Teams Registered Nurse Practitioner Relationship Specialty Start Date End Date Trinh Coates MD [facility] [address] [address] PCP - General 01/11/10 documented as of this encounter
--- OUTSIDE RECORDS SUMMARY | 2023-09-25 11:45 | XMS_ITS | Encounter Summary ---
Author Organization [facility] [place] [address] Care Team Providers Care Poultry Sexer Name Role Phone Trinh Coates MD Primary Care Provider [phone] Reason for Visit * Reason Comments Medication Management Encounter Details Date Type Department Care Team (Late st Contact Info) Description 09/12/2018 Specialty [place] [phone] Trudi Vidal RPH Social History Tobacco Use [...] 01/22/2024 10:30 AM EST Appointment Mammography/[place] [address] Ladi Mendosa MD [facility] HEMATOLOGY [place] [address] 01/30/2024 11:30 AM EST Office Visit Dermatology at [facility] [address] [place] [address] Nilda Luis MD [facility] [place] [address] 02/14/2024 7:30 AM [place] [address] Joanna Watts MD [facility] [place] [address] documented as of this encounter Visit Diagnoses Not on filedocumented in this encounter Care Teams Poultry Sexer Relationship Specialty Start Date End Date Trinh Coates MD [facility] [address] [facility] 1 [place] [address] PCP - General 01/11/10 documented as of this encounter
--- OUTSIDE RECORDS SUMMARY | 2023-09-25 11:45 | XMS_ITS | Encounter Summary ---
[place] [address] Care Team Providers Care Emergency Medical Technician Name Role Phone Trinh Coates MD Primary Care Provider [phone] Encounter Details Date Type Department Care Team (Late st Contact Info) Description 07/19/2018 Telephone [place] [address] Susana Cabezas LPN Social History Tobacco Use [...] 01/22/2024 10:30 AM EST Appointment Mammography/[place] [address] Ladi Mendosa MD [facility] HEMATOLOGY [place] [address] 01/30/2024 11:30 AM EST Office Visit Dermatology at [place] [address] [place] [address] Nilda Luis MD [facility] [place] [address] 02/14/2024 7:30 AM EST Appointment Radiology at [place] [phone] Joanna Watts MD [facility] [place] [address] documented as of this encounter Visit Diagnoses Not on filedocumented in this encounter Care Teams Emergency Medical Technician Relationship Specialty Start Date End Date Trinh Coates MD [facility] [address] [place] [address] PCP - General 01/11/10 documented as of this encounter
--- OUTSIDE RECORDS SUMMARY | 2023-09-25 11:45 | XMS_ITS | Encounter Summary ---
Author Organization [facility] [place] [address] Care Team Providers Care Automation Tender Name Role Phone Trinh Coates MD Primary Care Provider [phone] Encounter Details Date Type Department Care Team (Late st Contact Info) Description 07/31/2018 Telephone Dermatology at [facility] [address] [place] [address] Katie Lombardo, RN Social History Tobacco Use [...] 12:46 PM EDT [facility] [place] [facility]. Gave patient results and patient states she is having issues with her potassium right now and was unsure if this could be the cause of the kidney decreased function. Patient asked for labs to be sent to [facility] in [facility] for 08/07/18. Patient asked about coverage [...] 01/22/2024 10:30 AM EST Appointment Mammography/[place] [address] Ladi Mendosa MD [facility] [place] [address] 01/30/2024 11:30 AM EST Office Visit Dermatology at [place] [address] [place] [address] Nilda Luis MD [facility] [place] [address] 02/14/2024 7:30 AM EST Appointment [place] [phone] Joanna Watts MD [facility] [place] [address] documented as of this encounter Visit Diagnoses Diagnosis High risk medication use Encounter for long-term (current) use of other medications documented in this encounter Care Teams Automation Tender Relationship Specialty Start Date End Date Trinh Coates MD [address] [place] [address] PCP - General 01/11/10 documented as of this encounter
--- OUTSIDE RECORDS SUMMARY | 2023-09-25 11:45 | XMS_ITS | Encounter Summary ---
Author Organization [facility] [address] Care Team Providers Care Roll Mechanic Name Role Phone Trinh Coates MD Primary Care Provider [phone] Reason for Visit * Diagnostic Test (Routine) - Closed Specialty Diagnoses / Procedures Referred By Contac t Referred To Contact Radiology Diagnoses S/P breast reconstruction, bilateral Procedures NM Lymphoscintigraphy w Imaging Peripheral Edema Andre Gimenez MD [facility] [place] [address] [place] [address] Referral ID Status Reason Start Date Expiration Date V isits Requested Visits Authorized [id number] Closed Specialty Service Requested 07/24/2018 07/24/2019 1 1 Encounter Details Date Type Department Care Team (Latest Contact Info) Description 08/14/2018 9:48 AM EDT - 08/14/2018 11:59 PM EDT Hospital Encounter [place] [address] Andre Gimenez MD [facility] [place] [address] Discharge Disposition: Home Social History [...] [place] [address] Ladi Mendosa MD [facility] [place] [address] 01/30/2024 11:30 AM EST Office Visit Dermatology at [facility] [address] [place] [address] Nilda Luis MD [facility] [place] [address] 02/14/2024 7:30 AM EST [place] [address] Joanna Watts MD [facility] [place] [address] documented as of this encounter Procedures Procedure [...] contact the number below. Andre Gimenez MD IMG [place] ORDERABLES documented in this encounter Visit Diagnoses Not on filedocumented in this encounter Care Teams Roll Mechanic Relationship Specialty Start Date End Date Trinh Coates MD [address] [place] [address] PCP - General 01/11/10 documented as of this encounter
--- OUTSIDE RECORDS SUMMARY | 2023-09-25 11:45 | XMS_ITS | Encounter Summary ---
Author Organization [facility] Address [facility] [place] [address] Care Team Providers Care Fitting Room Operator Name Role Phone Trinh Coates MD Primary Care Provider [phone] Reason for Visit * Reason Comments Follow-up Encounter Details Date Type Department Care Team (Late st Contact Info) Description 09/12/2018 9:30 AM EDT Office Visit Dermatology at [address] [address] Andre Lara MD [facility] DR [address] [place] [address] Psoriasis; High risk medication use Social History [...] into the right upper arm. Subcutaneous injection. [facility]: [id number] Drug lot: [id number] Expires: 09/2020 ?? RTC: [...] by: Andre Lara MD Resident in Dermatology [facility] Patient seen and evaluated with staff paedodontist: Eliseo Sorensen MD Section of Dermatology [facility] * Eliseo Sorensen III, MD - 09/12/2018 [...] 01/22/2024 10:30 AM EST Appointment Mammography/DXA at [place] [phone] Ladi Mendosa MD [facility] HEMATOLOGY [place] [address] 01/30/2024 11:30 AM EST Office Visit Dermatology at [address] [phone] Nilda Luis MD [facility] [place] [address] 02/14/2024 7:30 AM EST [place]oint[place] [address] Joanna Watts MD [facility] [place] [address] documented as of this encounter Visit Diagnoses Diagnosis Psoriasis Other psoriasis High risk medication use Encounter for long-term (current) use of other medications documented in this encounter Care Teams Fitting Room Operator Relationship Specialty Start Date End Date Trinh Coates MD [facility] [address] [place] [address] PCP - General 01/11/10 documented as of this encounter
--- OUTSIDE RECORDS SUMMARY | 2023-09-25 11:45 | XMS_ITS | Encounter Summary ---
[place] [address] Care Team Providers Care Bed Setter Name Role Phone Trinh Coates MD Primary Care Provider [phone] Reason for Visit * Reason Onset Date Comments Prior Authorization 07/26/2018 Stelara 45mg /0.5mL Encounter Details Date Type Department Care Team (Late st Contact Info) Description 07/26/2018 [place] [address] Carrington Encarnacion Prior Authorization (Stelara 45mg/0.5mL) Social [...] Authorization Denial Medication Name: Kami Case/Reference #: [id number] Denial Summary: Scanning Denial Letter into EDH [...] pharmacist, or the specialty pharmacy team at [facility] * Telephone Encounter - Carrington Encarnacion - 07/26/2018 1:02 PM EDT [facility], Medication Prior Authorization Patient: Wendy Sandoval Patient : [id number] Patient Address: [address] [place] [address] (home) Medication: Stelara 45mg/0.5mL SOSY Subscriber Insurance: [email or web address]) ([facility]) Physician: Tino Mann Sent Via: [facility] La: [id number] Ref/Case/PA#: Medication Strength Frequency Requested: [...] 01/22/2024 10:30 AM EST Appointment Mammography[place] [address] Ladi Mendosa MD [facility] DR HEMATOLOGY [place] [address] 01/30/2024 11:30 AM EST Office Visit Dermatology at [facility] [address] [place] [address] Nilda Luis MD [facility] [place] [address] 02/14/2024 7:30 AM EST [place] [address] Joanna Watts MD [facility] [place] [address] documented as of this encounter Visit Diagnoses Not on filedocumented in this encounter Care Teams Bed Setter Relationship Specialty Start Date End Date Trinh Coates MD [facility] [address] [facility] 1 [place] [address] PCP - General 01/11/10 documented as of this encounter
--- OUTSIDE RECORDS SUMMARY | 2023-09-25 11:45 | XMS_ITS | Encounter Summary ---
Author Organization [facility] [place] [address] Care Team Providers Care Operating Room Tech Name Role Phone Trinh Coates MD Primary Care Provider [phone] Encounter Details Date Type Department Care Team (Late st Contact Info) Description 07/23/2018 Telephone [place] [address] Lakeisha Reza MD [facility] [place] [address] Social History Tobacco Use Types Packs/Day Years [...] message with contact details and will send [facility] message. Lakeisha Reza PGY 4 Endocrinology Pager [phone] documented in this encounter Plan of Treatment Upcoming Encounters Date Type Department Care Team (Late st Contact Info) Description 01/22/2024 10:30 AM EST Appointment Mammography/[place] [address] Ladi Mendosa MD [facility] HEMATOLOGY [place] [address] 01/30/2024 11:30 AM EST Office Visit Dermatology at [facility] [address] [place] [address] Nilda Luis MD [facility] [place] [address] 02/14/2024 7:30 AM EST Appointment Radiology at [place] [phone] Joanna Watts MD [facility] [place] [address] documented as of this encounter Visit Diagnoses Not on filedocumented in this encounter Care Teams Operating Room Tech Relationship Specialty Start Date End Date Trinh Coates MD [facility] [address] [place] [address] PCP - General 01/11/10 documented as of this encounter
--- OUTSIDE RECORDS SUMMARY | 2023-09-25 11:45 | XMS_ITS | Encounter Summary ---
Author Organization [facility] Address [facility] [place] [address] Care Team Providers Care Aircraft Avionics Technician Name Role Phone Trinh Coates MD Primary Care Provider [phone] Reason for Visit * Reason Onset Date Comments Medication Refill 09/12/2018 Encounter Details Date Type Department Care Team (Late st Contact Info) Description 09/12/2018 Refill Dermatology at [address] [address] CallAndre MD [facility] DR [address] [address] Psoriasis Social History Tobacco Use Types Packs/Day [...] 01/22/2024 10:30 AM EST Appointment Mammography/[place] [address] Ladi Mendosa MD [facility] [place] [address] 01/30/2024 11:30 AM EST Office Visit Dermatology at [facility] [address] [place] [address] Nilda Luis MD [facility] [place] [address] 02/14/2024 7:30 AM EST Appointment Radiology at [place] [phone] Joanna Watts MD [facility] [place] [address] documented as of this encounter Visit Diagnoses Diagnosis Psoriasis Other psoriasis documented in this encounter Care Teams Aircraft Avionics Technician Relationship Specialty Start Date End Date Trinh Coates MD [facility] [address] [place] [address] PCP - General 01/11/10 documented as of this encounter
--- OUTSIDE RECORDS SUMMARY | 2023-09-25 11:45 | XMS_ITS | Encounter Summary ---
Author Organization [facility] Address [facility] [place] [place] [address] Care Team Providers Care Handle Assembler Name Role Phone Trinh Coates MD Primary Care Provider [phone] Reason for Visit * Reason Comments Establish Care hard lesion on R s ludmila, red itchy rash, x 1 year, not visible today. Vulvodynia painful intercourse * Consultation (Routine) - Closed Specialty Diagnoses / Procedures Referred By Contac t Referred To Contact Obstetrics and Gynecology Diagnoses VULVA LESION Trinh Coates MD [facility] [address] [facility] 1 [place] [address] [facility] [place] [place] Neonatal Pediatric Nurse [address] [place] [address] Referral ID Status Reason Start Date Expiration Date V isits Requested Visits Authorized [id number] Closed Consult, Test & Treat Connection [facility] 07/01/2018 07/01/2019 1 1 Encounter Details Date Type Department Care Team (Late st Contact Info) Description 10/16/2018 11:00 AM EDT Office Visit Obstetrics [place] [address] Vaishali Allison MD [facility] OBSTETRICS [place] [address] Vulvar itching; Vulvar rash; Psoriasis [...] of left breast in female, estrogen receptor jefmmclt53/10/2018 ??? Hyperparathyroidism 11/02/2015 ??? Obstructive sleep apnea [...] 01/22/2024 10:30 AM EST Appointment Mammography/[place] [address] Ladi Mendosa MD [facility] [place] [address] 01/30/2024 11:30 AM EST Office Visit Dermatology at [facility] [address] [place] [address] Nilda Luis MD [facility] [place] [address] 02/14/2024 7:30 AM [place] [address] Joanna Watts MD [facility] [place] [address] documented as of this encounter Procedures Procedure Name Priority Date/Time Associated Diagnosis Comments HC FUNGUS CULTURE, MISC SOURCE Routine 10/16/2018 4:18 PM EDT Vulvar itching Vulvar rash documented in this encounter Results * Yeast culture Vaginal (10/16/2018 4:18 PM EDT) Yeast Culture No Yeast isolated [facility] Vaginal 10/16/2018 4:18 PM EDT 10/16/2018 4:18 PM EDT Narrative Resulting Agency Comment Spec In Lab Vaishali Allison MD MICROBIOLOGY - GENE [facility] ORDERABLES [facility] [place] [address] documented in this encounter Visit Diagnoses Diagnosis Vulvar itching Pruritus of genital organs Vulvar rash Rash and other nonspecific skin eruption Psoriasis Other psoriasis documented in this encounter Care Teams Handle Assembler Relationship Specialty Start Date End Date Trinh Coates MD [address] [place] [address] PCP - General 01/11/10 documented as of this encounter
--- OUTSIDE RECORDS SUMMARY | 2023-09-25 11:45 | XMS_ITS | Encounter Summary ---
Author Organization [facility] Address [facility] [place] [address] Care Team Providers Care Entry Level Recruiter Name Role Phone Trinh Coates MD Primary Care Provider [phone] Encounter Details Date Type Department Care Team (Latest Contact Info) Description 07/12/2018 7:00 AM EDT Laboratory [place] [address] Pre-op testing; Hypertension, unspecified type Social History [...] 01/22/2024 10:30 AM EST Appointment Mammography[place] [address] Ladi Mendosa MD [facility] [place] [address] 01/30/2024 11:30 AM EST Office Visit Dermatology at [facility] [address] [place] [address] Nilda Luis MD [facility] [place] [address] 02/14/2024 7:30 AM EST Appointment Radiology at [facility] [place] [address] Joanna Watts MD [facility] [place] [address] documented as of this encounter Procedures Procedure [...] of body mass or the acutely ill. http://[employer]/[facility] eGFR 75 >=60 mL/min/1.7 3 m?? [facility] Comment: The eGFR was calculated using the CKD-EPI equation. As with all creatinine based estimates of kidney function, eGFR values calculated with the CKD-EPI equation are not accurate in patients with acute kidney failure, extremes of body mass or the acutely ill. http://[employer]/[facility] Blood specimen (specimen) 07/12/2018 6:22 AM EDT 07/12/2018 6:25 AM EDT Narrative Resulting Agency Comment Spec In Lab Marcos Dey MD CHEMISTRY ORDERABLES [facility] [place] [address] * (ABNORMAL) Platelet count (07/12/2018 6:22 AM EDT) Platelet 365(H) 145 - 357 x10(3)/mc L [facility] Immature Plt % 0.5 0.0 - 7.4 % [facility] Comment: Limitation of the Immature Platelet Fraction (IPF)-May be less reliable when the platelet count is less than 69j973/uL due to statistical imprecision. The IPF value [...] in a decreased state of production. References: [employer] The Clinical Value of the Immature Platelet Fraction (IPF) in Cell Recovery Document Number 10-1143 07/2010 [employer] The Role of the Immature Platelet Fraction (IPF) in the Differential Diagnosis of Thrombocytopenia, Document [id number] V05 P0514 Blood specimen (specimen) 07/12/2018 6:22 AM EDT 07/12/2018 6:25 AM EDT Narrative Resulting Agency Comment Spec In Lab Marcos Dey MD HEMATOLOGY ORDERABLE S [facility] [place] [address] documented in this encounter Visit Diagnoses Diagnosis Pre-op testing Preoperative examination, unspecified Hypertension, unspecified type documented in this encounter Care Teams Entry Level Recruiter Relationship Specialty Start Date End Date Trinh Coates MD [address] [facility] 1 [place] [address] PCP - General 01/11/10 documented as of this encounter
--- OUTSIDE RECORDS SUMMARY | 2023-09-25 11:45 | XMS_ITS | Encounter Summary ---
Author Organization [facility] Address [facility] [place] [address] Care Team Providers Care Development Manager Name Role Phone Trinh Coates MD Primary Care Provider [phone] Encounter Details Date Type Department Care Team (Late st Contact Info) Description 08/20/2018 Orders Only Dermatology at [facility] [address] [place] [address] CallAndre MD [facility] [address] LIDIA [place] [address] Psoriasis Social History Tobacco Use Types Packs/Day [...] 01/22/2024 10:30 AM EST Appointment Mammography/[place] [phone] Ladi Mendosa MD [facility] [place] [address] 01/30/2024 11:30 AM EST Office Visit Dermatology at [facility] [address] [place] [address] Nilda Luis MD [facility] [place] [address] 02/14/2024 7:30 AM EST Appointment [place] [phone] Joanna Watts MD [facility] [place] [address] documented as of this encounter Visit Diagnoses Diagnosis Psoriasis Other psoriasis documented in this encounter Care Teams Development Manager Relationship Specialty Start Date End Date Trinh Coates MD [facility] [address] [address] PCP - General 01/11/10 documented as of this encounter
--- OUTSIDE RECORDS SUMMARY | 2023-09-25 11:45 | XMS_ITS | Encounter Summary ---
Author Organization [facility] Address [facility] [place] [address] Care Team Providers Care Educational Aide Name Role Phone Trinh Coates MD Primary Care Provider [phone] Encounter Details Date Type Department Care Team (Late st Contact Info) Description 08/22/2018 Orders Only Dermatology at [facility] [address] [place] [address] [address]Andre [address] [facility] [address] LIDIA [place] [address] Psoriasis Social History Tobacco Use Types Packs/Day [...] 01/22/2024 10:30 AM EST Appointment Mammography[place] [phone] Ladi Mendosa MD [facility] [place] [address] 01/30/2024 11:30 AM EST Office Visit Dermatology at [facility] [address] [place] [address] Nilda Luis MD [facility] [address] 02/14/2024 7:30 AM [place] [phone] Joanna Watts MD [facility] [place] [address] documented as of this encounter Visit Diagnoses Diagnosis Psoriasis Other psoriasis documented in this encounter Care Teams Educational Aide Relationship Specialty Start Date End Date Trinh Coates MD [facility] [address] [address] PCP - General 01/11/10 documented as of this encounter
--- OUTSIDE RECORDS SUMMARY | 2023-09-25 11:45 | XMS_ITS | Encounter Summary ---
Author Organization [facility] Address [facility] Margarita [facility] [place] [address] Care Team Providers Care Diversified Crops Farmer Name Role Phone Trinh Coates MD Primary Care Provider [phone] Encounter Details Date Type Department Care Team (Late st Contact Info) Description 08/14/[address] [facility] [address] [place] [address] Tino Mann MD [facility] DR LIDIA [place] [address] Psoriasis Social History Tobacco Use Types Packs/Day [...] RPH Transfer of Services Wendy Sandoval [address] [facility] [address] Telephone Information: The [facility] has [...] to call the [facility] at [phone] with any questions or concerns on this referral. Thank you, Mana Lei RPH 08/14/18 4:51 PM Patient understands no changes to current drug regimen were made at this time. documented in this encounter Plan of Treatment Upcoming Encounters Date Type Department Care Team (Late st Contact Info) Description 01/22/2024 10:30 AM EST Appointment Mammography/DXA at [place] [phone] Ladi Mendosa MD [facility] HEMATOLOGY [place] [address] 01/30/2024 11:30 AM EST Office Visit Dermatology at [address] [phone] Nilda Luis MD [facility] [place] [address] 02/14/2024 7:30 AM [place] [phone] Joanna Watts MD [facility] [place] [address] documented as of this encounter Visit Diagnoses Diagnosis Psoriasis Other psoriasis documented in this encounter Care Teams Diversified Crops Farmer Relationship Specialty Start Date End Date Trinh Coates MD [facility] [address] [place] [address] PCP - General 01/11/10 documented as of this encounter
--- OUTSIDE RECORDS SUMMARY | 2023-09-25 11:46 | XMS_ITS | Encounter Summary ---
Author Organization [facility] [place] [address] Care Team Providers Care Document Management Consultant Name Role Phone Trinh Coates MD Primary Care Provider [phone] Reason for Referral * Diagnostic Test (Routine) - Closed Specialty Diagnoses / Procedures Referred By Contac t Referred To Contact Radiology Diagnoses Malignant neoplasm of upper-outer quadrant of left breast in female, estrogen receptor positive Procedures IR Mediport Removal Josias Barnett MD [facility] DR HEMATOLOGY/[place] [address] [facility] [address] Referral ID Status Reason Start Date Expiration Date V isits Requested Visits Authorized [id number] Closed Specialty Service Requested 01/07/2018 01/07/2019 1 1 Reason for Visit * Diagnostic Test (Routine) - Closed Specialty Diagnoses / Procedures Referred By Contac t Referred To Contact Radiology Diagnoses Malignant neoplasm of upper-outer quadrant of left breast in female, estrogen receptor positive Procedures IR Mediport Removal Josias Barnett MD [facility] HEMATOLOGY/[place] [address] [facility] [address] Referral ID Status Reason Start Date Expiration Date V isits Requested Visits Authorized [id number] Closed Specialty Service Requested 01/07/2018 01/07/2019 1 1 Encounter Details Date Type Department Care Team (Latest Contact Info) Description 01/25/2018 1:00 PM EST - 01/25/2018 11:59 PM EST Hospital Encounter [place] [address] Josias Barnett MD [facility] HEMATOLOGY/ON[place] [address] Malignant neoplasm of upper-outer quadrant of left [...] Agosto RN - 01/25/2018 2:19 PM EST [facility] Vascular and Interventional Radiology Discharge Instructions [...] not peel them off. There may be [place]-tyson (skin glue) also, allow this to flake [...] is during regular office hours, please call [phone]. If it is after regular office hours, or on weekends or holidays, please call [phone] and ask to speak to the Bankruptcy Assistant special education supervisor for Interventional Radiology. You have received medication [...] (moderate pain (4-6)). 8 tablet 12/25/2017 03/05/2018 gabapentin (NEURONTIN) 100 mg Capsule Take 1 capsule by mouth nightly as needed. If no benefit after a week, can increase to 200mg, then 300mg at night if not too sedating. 60 capsule 2 12/05/2017 05/29/2018 tamoxifen (NOLVADEX) 20 mg Tablet Take 1 tablet by mouth daily. Start 2-3 weeks after radiation therapy is completed. 90 tablet 3 12/05/2017 05/29/2018 dexamethasone (DECADRON) 4 mg Tablet Take 1 tablet by mouth 2 times daily (with meals). 20 tablet 10/19/2017 02/26/2018 potassium chloride 20 mEq Tablet Sustained Release [...] of : 1965 AGE 52 y.o. [address]: [address] [place] [phone] (home) [phone] (work) Mobile: Telephone Information: Referring Provider: Josias Barnett REASON FOR VISIT: Date/time of procedure: Pertinent info from Pre-call (if any): Labs ordered: Med's stopped: Question Answer Comment Where will study be performed? [facility] Reason for exam and clinical history: [...] of left breast in female, estrogen receptor csnfqzirE03.412, Z17.0 ??? S/P breast reconstruction, bilateral Z98.890 [...] IR Drain Check/Change/Remove 11/20/2017 Marcos Dey MD [facility] INTERVENTIONL RAD ??? PRG EMG, LARYNX N/A 11/02/2015 FACIAL NERVE MONITORING, SETUP LARYNGEAL performed by Valentina Lucas MD at [facility] MAIN OR ??? PRO BREAST RECONSTRUC W FREE FLAP Bilateral 04/26/2017 @BREAST RECONSTRUCTION W/ FREE FLAP, SUSAN (WRVU 42.58) performed by Andre Gimenez MD at [facility] [place] ??? PRO BREAST RECONSTRUC W FREE FLAP, W/O IMPLANT Bilateral 12/12/2017 @BREAST RECONSTRUCTION W/ LAT DORSI FLAP,W/O IMPLANT, SUSAN (WRVU 23.36) performed by Andre Gimenez MD at [facility] MAIN OR ??? PRO BREAST RECONSTRUC W TISS EXPANDR Bilateral 04/26/2017 BREAST RECONSTRUCTION, IMMEDIATE OR DELAYED, W/ TISSUE GRANITE CUTTER, INCLUDING SUBSEQUENT EXPANSION (WRVU 18.5) performed by Andre Gimenez MD at [facility] OR ? ? PRO DEBRIDEMENT SUBCUTANEOUS TISSUE 20 SQCM/< 06/22/2017 DEBRIDEMENT SKIN AND SUBCU, BREAST (WRVU 1.01) performed by Andre Gimenez MD at [facility] OR ??? PRO EXPLORE PARATHYROID GLANDS N/A 11/02/2015 PARATHYROIDECTOMY OR EXPLORATION OF PARATHYROID(S) performed by Valentina Lucas MD at [facility] OR ? ? PRO FULL THICK GRFT TRUNK <20 SQCM Bilateral 04/26/2017 FTSG, FREE, DIR CLOSE DONOR SITE, TRUNK, 20 SQ CM OR LESS (WRVU 9.15) performed by Andre Gimenez MD at [facility] OR ??? PRO MASTECTOMY, SIMPLE, COMPLETE Bilateral 04/26/2017 MASTECTOMY, SIMPLE, COMPLETE-SUSAN (WRVU 15.85) performed by Jolie Menendez MD at [facility] OR ??? PRO PARTIAL REMOVAL OF RIB Bilateral 04/26/2017 EXCISION OF RIB, PARTIAL (WRVU 7.26) performed by Andre Gimenez MD at [facility] OR ??? PRO REMOVE ARMPITS LYMPH NODES COMPLT Left 04/26/2017 LYMPHADENECTOMY, AXILLARY, COMPLETE (WRVU 13.87) performed by Jolie Menendez MD at [facility] OR ??? PRO REPLACE TISSUE GRANITE CUTTER Bilateral 12/12/2017 TISSUE GRANITE CUTTER REPLACEMENT, WITH PERMANENT PROSTHESIS, SUSAN (WRVU 8.01) performed by Andre Gimenez MD at [facility] OR ??? PRO REVISE BREAST RECONSTRUCTION Left 06/22/2017 REVISION OF RECONSTRUCTED BREAST (WRVU 10.41) performed by Andre Gimenez MD at [facility] OR ??? PRO REVISE BREAST RECONSTRUCTION Bilateral 12/12/2017 REVISION OFRECONSTRUCTED BREAST, SSUAN (WRVU 10.41) performed by Andre Gimenez MD at [facility] OR ??? PRO THYMECTOMY, TRANSCERVICAL N/A 11/02/2015 THYMECTOMY, TRANSCERVICAL APPROACH performed by Valentina Lucas MD at [facility] OR ??? SHOULDER SURGERY Left [...] R drain removed. Fentanyl 50 mcg IV? [id number] Left breast aspiration/ 30 ml Fentanyl 100 [...] Questions Answers Where will study be performed? [facility] [120] Reason for exam and clinical [...] of left breast in female, estrogen receptor [id number], Z17.0 ??? S/P breast reconstruction, bilateral Z98.890 [...] IR Drain Check/Change/Remove 11/20/2017 Marcos Dey MD [facility] INTERVENTIONL RAD ??? PRG EMG, LARYNX N/A 11/02/2015 FACIAL NERVE MONITORING, SETUP LARYNGEAL performed by Valentina Lucas MD at [facility] MAIN OR ??? PRO BREAST RECONSTRUC W FREE FLAP Bilateral 04/26/2017 @BREAST RECONSTRUCTION W/ FREE FLAP, SUSAN (WRVU 42.58) [facility] ??? PRO BREAST RECONSTRUC W FREE FLAP, W/O IMPLANT Bilateral 12/12/2017 @BREAST RECONSTRUCTION W/ LAT DORSI FLAP,W/O IMPLANT, SUSAN (WRVU 23.36) performed by Andre Gimenez MD at [facility] OR ??? PRO BREAST RECONSTRUC W TISS EXPANDR Bilateral 04/26/2017 BREAST RECONSTRUCTION, IMMEDIATE OR DELAYED, W/ TISSUE GRANITE CUTTER, INCLUDING SUBSEQUENT EXPANSION (WRVU 18.5) performed by Andre Gimenez MD at [facility] MAIN OR ? ? PRO DEBRIDEMENT SUBCUTANEOUS TISSUE 20 SQCM/< 06/22/2017 DEBRIDEMENT SKIN AND SUBCU, BREAST (WRVU 1.01) performed by Andre Gimenez MD at [facility] OR ??? PRO EXPLORE PARATHYROID GLANDS N/A 11/02/2015 PARATHYROIDECTOMY OR EXPLORATION OF PARATHYROID(S) performed by Valentina Lucas MD at [facility] OR ? ? PRO FULL THICK GRFT TRUNK <20 SQCM Bilateral 04/26/2017 FTSG, FREE, DIR CLOSE DONOR SITE, TRUNK, 20 SQ CM OR LESS (WRVU 9.15) performed by Andre Gimenez MD at [facility] MAIN OR ??? PRO MASTECTOMY, SIMPLE, COMPLETE Bilateral 04/26/2017 MASTECTOMY, SIMPLE, COMPLETE-SUSAN (WRVU 15.85) performed by Jolie Menendez MD at [facility] OR ??? PRO PARTIAL REMOVAL OF RIB Bilateral 04/26/2017 EXCISION OF RIB, PARTIAL (WRVU 7.26) performed by Andre Gimenez MD at [facility] OR ??? PRO REMOVE ARMPITS LYMPH NODES COMPLT Left 04/26/2017 LYMPHADENECTOMY, AXILLARY, COMPLETE (WRVU 13.87) performed by Jolie Menendez MD at [facility] OR ??? PRO REPLACE TISSUE GRANITE CUTTER Bilateral 12/12/2017 TISSUE GRANITE CUTTER REPLACEMENT, WITH PERMANENT PROSTHESIS, SUSAN (WRVU 8.01) performed by Andre Gimenez MD at [facility] OR ??? PRO REVISE BREAST RECONSTRUCTION Left 06/22/2017 REVISION OF RECONSTRUCTED BREAST (WRVU 10.41) performed by Andre Gimenez MD at [facility] OR ??? PRO REVISE BREAST RECONSTRUCTION Bilateral 12/12/2017 REVISION OFRECONSTRUCTED BREAST, SUSAN (WRVU 10.41) performed by Andre Gimenez MD at [facility] OR ??? PRO THYMECTOMY, TRANSCERVICAL N/A 11/02/2015 THYMECTOMY, TRANSCERVICAL APPROACH performed by Valentina Lucas MD at [facility] OR ??? SHOULDER SURGERY Left [...] 01/22/2024 10:30 AM EST Appointment Mammography/[place] [phone] Ladi Mendosa MD [facility] HEMATOLOGY [place] [address] 01/30/2024 11:30 AM EST Office Visit Dermatology at [address] [phone] Nilda Luis MD [facility] [place] [address] 02/14/2024 7:30 AM EST Appointment [place] [phone] Joanna Watts MD [facility] [place] [address] documented as of this encounter Procedures Procedure [...] APRN Attending: Dr. Dey Josias Barnett MD [facility] IR ORDERABLES documented in this encounter Visit [...] mg documented in this encounter Care Teams Document Management Consultant Relationship Specialty Start Date End Date Trinh Coates MD [address] [place] [address] PCP - General 01/11/10 documented as of this encounter
--- OUTSIDE RECORDS SUMMARY | 2023-09-25 11:46 | XMS_ITS | Encounter Summary ---
Author Organization [facility] Address [facility] [place] [address] Care Team Providers Care Railroad Car Repair Supervisor Name Role Phone Trinh Coates MD Primary Care Provider [phone] Encounter Details Date Type Department Care Team (Late st Contact Info) Description 03/11/2018 Notes Only Radiation Oncology at [address] [address] Mayda Calvert, RN Social History [...] EST Appointment Mammography/[place] [phone] Ladi Mendosa MD [facility] [place]AT[place] [address] 01/30/2024 11:30 AM EST Office Visit Dermatology at [place] [address] [place] [address] Nilda Luis MD [facility] [place] [address] 02/14/2024 7:30 AM EST Appointment Radiology at [place] [phone] Joanna Watts MD [facility] [place] [address] documented as of this encounter Visit Diagnoses Not on filedocumented in this encounter Care Teams Railroad Car Repair Supervisor Relationship Specialty Start Date End Date Trinh Coates MD [address] [place] [address] PCP - General 01/11/10 documented as of this encounter
--- OUTSIDE RECORDS SUMMARY | 2023-09-25 11:46 | XMS_ITS | Encounter Summary ---
Author Organization [facility] Address [facility] [place] [address] Care Team Providers Care Junior Software Engineer Name Role Phone Trinh Coates MD Primary Care Provider [phone] Reason for Visit * Reason Comments On Treatment Visit Encounter Details Date Type Department Care Team (Late st Contact Info) Description 01/29/2018 1:00 PM EST Office Visit Radiation Oncology at [address] [phone] Emily Choi MD [facility] [place] [address] Malignant neoplasm of upper-outer quadrant [...] DIAGNOSIS: Breast ca, L, IDC, 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 Adjuvant chemo then given, followed by distribution a class lineman exchange for implants. CURRENT TREATMENT DOSE: 1.8 Gy L supraclav, L axilla & L reconstructed breast/chest wall ANTICIPATED TOTAL DOSE: 50.4 Gy L supraclav, L axilla & L reconstructed breast/chest wall Current # of xrt received: 1 Anticipated total # of xrt txs: 28 Evaluation of port verification films: Approved. For details, see electronic film record in [employer] System. Changes in Medical Condition: None. Sees [...] 10:30 AM EST Appointment Mammography/[place] [address] Ladi Mendosa MD [facility] [place] [address] 01/30/2024 11:30 AM EST Office Visit Dermatology at [facility] [address] [place] [address] Nilda Luis MD [facility] [place] [address] 02/14/2024 7:30 AM EST Appointment Radiology at [place] [phone] Joanna Watts MD [facility] [place] [address] documented as of this encounter Visit Diagnoses Diagnosis Malignant neoplasm of upper-outer quadrant of left female breast, unspecified estrogen receptor status documented in this encounter Care Teams Junior Software Engineer Relationship Specialty Start Date End Date Trinh Coates MD [facility] [address] [place] [address] PCP - General 01/11/10 documented as of this encounter
--- OUTSIDE RECORDS SUMMARY | 2023-09-25 11:46 | XMS_ITS | Encounter Summary ---
Author Organization [facility] Address [facility] [place] [address] Care Team Providers Care Manager Market Development Name Role Phone Trinh Coates MD Primary Care Provider [phone] Encounter Details Date Type Department Care Team (Late st Contact Info) Description 01/16/2018 Notes Only Radiation Oncology at [address] [phone] Miriam Carrillo, HOSPITAL ATTENDANT OFFICE OF CARE MANAGEMENT Social History Tobacco [...] any issues with transportation. 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 Her schedule is [...] at this time. Plan: Informed pt of HOSPITAL ATTENDANT availability and will follow for support and resources. documented in this encounter Plan of Treatment Upcoming Encounters Date Type Department Care Team (Late st Contact Info) Description 01/22/2024 10:30 AM EST Appointment Mammography/DXA at [place] [phone] Ladi Mendosa MD [facility] [place] [address] 01/30/2024 11:30 AM EST Office Visit Dermatology at [address] [phone] Nilda Luis MD [facility] [place] [address] 02/14/2024 7:30 AM EST [place] [address] Joanna Watts MD [facility] [place] [address] documented as of this encounter Visit Diagnoses Not on filedocumented in this encounter Care Teams Manager Market Development Relationship Specialty Start Date End Date Trinh Coates MD [facility] [address] [place] [address] PCP - General 01/11/10 documented as of this encounter
--- OUTSIDE RECORDS SUMMARY | 2023-09-25 11:46 | XMS_ITS | Encounter Summary ---
Author Organization [facility] Address [facility] Margarita [facility] [place] [address] Care Team Providers Care Retail Store Clerk Name Role Phone Trinh Coates MD Primary Care Provider Encounter Details Date Type Department Care Team (Late st Contact Info) Description 03/11/2018 Notes Only Radiation Oncology at [address] [phone] Emily Choi MD [facility] [place] [address] Social History Tobacco Use Types [...] for breast ca, L, IDC, gr 3, ER+HI+, Her2 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 Adjuvantchemo then given, followed by education program associate exchange for implants. The course of xrt [...] 01/22/2024 10:30 AM EST Appointment Mammography/[place] [phone] Ladi Mendosa MD [facility] [address] [place] [address] 01/30/2024 11:30 AM EST Office Visit Dermatology at [facility] [address] [place] [phone] Nilda Luis MD [facility] [place] [address] 02/14/2024 7:30 AM EST Appointment [place] [phone] Joanna Watts MD [facility] [address] documented as of this encounter Visit Diagnoses Not on filedocumented in this encounter Care Teams Retail Store Clerk Relationship Specialty Start Date End Date Trinh Coates MD [facility] [address] [facility] [address] [place] [address] PCP - General 01/11/10 documented as of this encounter
--- OUTSIDE RECORDS SUMMARY | 2023-09-25 11:46 | XMS_ITS | Encounter Summary ---
Author Organization [facility] Address [facility] [place] [address] Care Team Providers Care Street Cleaner Name Role Phone Trinh Coates MD Primary Care Provider [phone] Encounter Details Date Type Department Care Team (Late st Contact Info) Description 03/13/2018 Telephone Radiation Oncology at [address] [phone] Narcisa Hair, RN Social History Tobacco Use Types [...] PM EST Radiation Oncology Nurse Telephone Note [facility] [place], [place] ----- Message from Jimbo Lei sent at 03/13/2018 3:18 PM EST ----- Regarding: Pt has oozing sore under breast- please call back Contact: Good Afternoon, Wendy called and said that she has a sore area under her breast that has now started to ooze. Please give her a call back at [phone]. Thanks, Jimbo 03/13/18 3:35 Telephone to pt [...] 01/22/2024 10:30 AM EST Appointment Mammography/DXA at [place] [phone] Ladi Mendosa MD [facility] [place]AT[place] [address] 01/30/2024 11:30 AM EST Office Visit Dermatology at [address] [phone] Nilda Luis MD [facility] [place] [address] 02/14/2024 7:30 AM EST [place] [phone] Joanna Watts MD [facility] [place] [address] documented as of this encounter Visit Diagnoses Not on filedocumented in this encounter Care Teams Street Cleaner Relationship Specialty Start Date End Date Trinh Coates MD [address] [place] [address] PCP - General 01/11/10 documented as of this encounter
--- OUTSIDE RECORDS SUMMARY | 2023-09-25 11:46 | XMS_ITS | Encounter Summary ---
Author Organization [facility], [facility] Address [facility] [place] [address] Care Team Providers Care Pizza Baker Name Role Phone Trinh Coates MD Primary Care Provider [phone] Reason for Referral * Physical Therapy (Routine) - Specialty Diagnoses / Procedures Referred By Diamante marin Referred To Contact Physical Therapy Diagnoses Malignant neoplasm of upper-outer quadrant of left female breast, unspecified estrogen receptor status Emily Choi MD [facility] [place] [address] Referral ID Status Reason Start Date Expiration Date V isits Requested Visits Authorized [id number] Evaluate and Treat 01/01/2018 06/30/2018 12 12 [...] CONSULT CONTINUING PRG RADIATION MANAGEMENT, 5 TREATMENTS [id number] Emily Choi MD [facility] [place] [address] [facility] Rad Onc Office [address] [place] [phone] Referral ID Status Reason Start Date Expiration Date V isits Requested Visits Authorized [id number] Consult, Test & Treat 01/01/2018 04/22/2018 28 28 Encounter Details Date Type Department Care Team (Latest Contact Info) Description 01/01/2018 11:30 AM EST Ancillary Appointment Radiation Oncology at [address] [address] Emily Choi MD [facility] [place] [address] Malignant neoplasm of upper-outer quadrant of left [...] your treatment to your nurse or doctor. [facility] Radiation Oncology Our normal business hours are: Sunday - Sunday 8 AM to 5 PM [facility] [place], [place] For emergent situations after hours please call for either location and ask for the Radiation Oncologist clinical research monitor. documented in this encounter Progress Notes * [...] 1 hour prior to XRT PRN Referrals: tray line worker today per routine. * Emily Choi MD - 01/01/2018 11:30 AM EST Here for sim. 11/15/17 chemo completed. 12/12/17 B credit collection associate replacement w/implants. 2 drains placed on each [...] 01/22/2024 10:30 AM EST Appointment Mammography/DXA at [place] [phone] Ladi Mendosa MD [facility] DR HEMATOLOGY [place] [address] 01/30/2024 11:30 AM EST Office Visit Dermatology at [place] [address] [place] [address] Nilda Luis MD [facility] [place] [address] 02/14/2024 7:30 AM EST Appointment Radiology at [place] [phone] Joanna Watts MD [facility] [place] [address] Scheduled Referrals Name Type Priority Associated Diagnoses Orde r Schedule Referral to Physical Therapy Outpatient Referral Routine Malignant neoplasm of upper-outer quadrant of left female breast, unspecified estrogen receptor status Ordered: 01/01/2018 documented as of this encounter Visit Diagnoses Diagnosis Malignant neoplasm of upper-outer quadrant of left female breast, unspecified estrogen receptor status documented in this encounter Care Teams Pizza Baker Relationship Specialty Start Date End Date Trinh Coates MD [address] [place] [address] PCP - General 01/11/10 documented as of this encounter
--- OUTSIDE RECORDS SUMMARY | 2023-09-25 11:46 | XMS_ITS | Encounter Summary ---
Author Organization [facility] [place] [address] Care Team Providers Care Safety Person Name Role Phone Trinh Coates MD Primary Care Provider [phone] Reason for Visit * Reason Comments Follow Up Surgery Encounter Details Date Type Department Care Team (Late st Contact Info) Description 01/02/2018 10:40 AM EST Office Visit [place] [address] Jolene Azevedo APRN [facility] [place] [address] Surgery follow-up Social History Tobacco Use Types [...] and closure. Debridement of umbilicus. Deflation of conveyor monitor volume, This leaves 450 cc in the left tissue conveyor monitor and 500 cc on the right side Date of surgery: 04/26/17 Procedure(s): Bilateral breast reconstruction with attempted SALVADOR flaps, eventual tissue conveyor monitor placement with [place] Artoura 600 cc expanders placed bilaterally and [...] AM EST Appointment Mammography/DXA at [place] [phone] Ladi Mendosa MD [facility] [place] [address] 01/30/2024 11:30 AM EST Office Visit Dermatology at [address] [address] Nilda Luis MD [facility] [place] [address] 02/14/2024 7:30 AM EST Appointment Radiology at [place] [phone] Joanna Watts MD [facility] [place] [address] documented as of this encounter Visit Diagnoses Diagnosis Surgery follow-up Follow-up examination, following unspecified surgery documented in this encounter Care Teams Safety Person Relationship Specialty Start Date End Date Trinh Coates MD [facility] [address] [place] [address] PCP - General 01/11/10 documented as of this encounter
--- OUTSIDE RECORDS SUMMARY | 2023-09-25 11:46 | XMS_ITS | Encounter Summary ---
Author Organization [facility] Address [facility] [place] [address] Care Team Providers Care Limo Driver Name Role Phone Trinh Coates MD Primary Care Provider [phone] Reason for Visit * Consultation (Routine) - Specialty Diagnoses / Procedures Referred By Diamante marin Referred To Contact Endocrinology Diagnoses HYPOKALEMIA Trinh Coates MD [address] [place] [address] [facility] [address] [place] [address] [facility] Endocrinology [address] [place] [phone] Referral ID Status Reason Start Date Expiration Date V isits Requested Visits Authorized [id number] Consult, Test & Treat [facility] 12/10/2017 12/10/2018 6 6 Encounter Details Date Type Department Care Team (Late st Contact Info) Description 03/12/2018 10:30 AM EST Office [place] [address] [facility] [place] [address] 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 History of Presenting Illness: Ms. Sandovla was diagnosed with toxemia during her , [...] of left breast in female, estrogen receptor lcacsdnbR33.412, Z17.0 ??? S/P breast reconstruction, bilateral Z98.890 ??? Surgery follow-up Z09 ??? Abdominal wound dehiscence T81.30XA ??? Hypokalemia E87.6 ??? Bacterial conjunctivitis H10.9 ??? Seroma of breast N64.89 ??? History of breast cancer Z85.3 Invasive Ductal carcinoma-L breast Bilateral mastectomy on 04/26/18 ??2.0 cm cancer, high-grade, grade 3. ??ER/AR +++, HER-2/pat negative, 4/18 nodes (1/18 additional nodes with ITC). ??LVI negative. 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 Lives in [facility] with and son (26 yoa). Daughter lives in [place], but moved home recently to help during [...] - 30 unit/L 18 <5 Assessment: Wendy Sandoval is a 52 yoa F with PMH of Invasive ductal carcinoma ER/AR +++, HER-2/pat negatives/p bilateral mastectomy and adjuvant chemotherapy, primary hyperparathyroidism s/p parathyroidectomy, and longstanding hypertension who presents to Endocrine clinic for evaluation of hypokalemia. HTN at a young age (diagnosed ~28 yoa) and persistent HTN on 2 antihypertensives with hypokalemia raises concern for hyperaldosteronism or Toledo's syndrome. However, primary adrenal issue is felt to be less likely based on normal adrenal glands on relatively recent MRI abdomen. As she is currently on spironolactone, cannot test for hyperaldosteronism for several weeks after transitioning to an alte rnative antihypertensive. Consequently, plan to test for Toledo's syndrome first with Dexamethasone suppression testing. Though [...] normal. Plan: #HTN with hypokalemia -Evaluate for Toledo's syndrome with Dexamethasone suppression test (dexamethasone provided and aswell as external lab slip) -If 8am cortisol <1.8 following dexamethasone (negative Justina's screen), discontinue spironolactone and start HCTZ with weekly K checks x 4 weeks -Once off spironolactone x 4 weeks will obtain Renin and Aldosterone -If above work up is unrevealing, consider urine electrolyte testing as may have renal tubular lossas etiology for hypokalemia (eg. Type 1 RTA) This case has been discussed with Dr. Angel of Endocrinology. Lakeisha Reza PGY 4 Endocrinology Pager [phone] * Flip Angel MD - 03/12/2018 10:30 AM EST I have seen the patient and reviewed Dr Reza's history and I agree with the details as written. The assessment and plan were formulated in discussion with me and I agree with them as documented. Flip Angel MD Custodial Maintenance Workerroute supervisor Endocrinology Section [facility] documented in this encounter Plan of Treatment Upcoming Encounters Date Type Department Care Team (Late st Contact Info) Description 01/22/2024 10:30 AM EST Appointment Mammography/[place] [phone] [facility] HEMATOLOGY [place] [address] 01/30/2024 11:30 AM EST Office Visit Dermatology at [facility] [address] [place] [address] [facility] [address] 02/14/2024 7:30 AM EST App[place] [address] [facility] [place] [address] documented as of this encounter Visit Diagnoses Diagnosis Hypokalemia Hypopotassemia Hypertension, unspecified type documented in this encounter Care Teams Limo Driver Relationship Specialty Start Date End Date Trinh Coates MD [facility] [address] [place] [address] PCP - General 01/11/10 documented as of this encounter
--- OUTSIDE RECORDS SUMMARY | 2023-09-25 11:46 | XMS_ITS | Encounter Summary ---
Author Organization [facility] Address [facility] [place] [address] Care Team Providers Care Crown Wheel Assembler Name Role Phone Trinh Coates MD Primary Care Provider [phone] Reason for Visit * Reason Comments Follow-up Encounter Details Date Type Department Care Team (Latest Contact Info) Description 05/29/2018 3:00 PM EDT Office Visit H[place]ology [place] [address] Josias Barnett MD [facility] DR HEMATOLOGY/[place] [address] Malignant neoplasm of upper-outer quadrant of left [...] A. 2.0 cm cancer, high-grade, grade 3. ER/VT +++, HER-2/pat negative, 4/18 nodes (1/18 additional [...] her mother's side. Oct 2017 Genetic testing: [employer] Common Hereditary Cancers Panel showed no mutation was detected. This means that Wendy does not carry a mutation in the genes detectable by this test. The following genes were evaluated for sequence changes and exonic deletions/duplications: APC, AMAURY, AXIN2, BARD1, BMPR1A, BRCA1, BRCA2, BRIP1, CDH1, CDKN2A (p14ARF), CDKN2A ([id number]), CHEK2, CTNNA1, DICER1, EPCAM (EPCAM: Deletion/duplication testing only (NM_[id number]), GREM1 (GREM1: Promoter region deletion/duplication testing only.), KIT, MEN1, MLH1, MSH2, MSH3, MSH6, MUTYH, NBN, NF1, PALB2, PDGFRA, PMS2, POLD1, POLE, PTEN, RAD50, RAD51C, RAD51D, SDHB, SDHC, SDHD, SMAD4, SMARCA4, STK11, TP53, TSC1, TSC 2, VHL. The following genes were evaluated for sequence changes only: HOXB13 (c.251G>A, p.Vuw71Pvk variant only), NTHL1 (NTHL1: Deletion/duplication analysis is not offered for this gene (NM_002528.6), and SDHA. A variant of uncertain significance in the AMAURY gene, specifically c.5727G>A (p.[id number]), was detected. Interval Hx/ROS: Since seen last [...] PMH of high-grade, node-positive left breast cancer ER+/VT+/HER2- (dx 03/2017, s/p bilateral mastectomy) who completed [...] AM EST Appointment Mammography/[place] [address] Ladi Mendosa MD [facility] HEMATOLOGY AND ONCOLOGY [place], [place] [address] 01/30/2024 11:30 AM EST Office Visit Dermatology at [facility] [address] [place] [address] Nilda Luis MD [facility] [place] [address] 02/14/2024 7:30 AM EST [place] [address] Joanna Watts MD [facility] [place] [address] documented as of this encounter Visit Diagnoses Diagnosis Malignant neoplasm of upper-outer quadrant of left breast in female, estrogen receptor positive 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
--- OUTSIDE RECORDS SUMMARY | 2023-09-25 11:46 | XMS_ITS | Encounter Summary ---
Author Organization [facility] Address [facility] [place] [address] Care Team Providers Care Snowmobile Mechanic Name Role Phone Trinh Coates MD Primary Care Provider [phone] Encounter Details Date Type Department Care Team (Latest Contact Info) Description 03/04/2018 Unscheduled Encounter Radiation Oncology at [address] [address] Mayda Calvert RN Contact dermatitis [...] requested that silvadene prescription be sent to [facility]. Plan: Weekly otv with Dr. Choi tomorrow. Nursing otv daily prn. documented in this encounter Plan of Treatment Upcoming Encounters Date Type Department Care Team (Late st Contact Info) Description 01/22/2024 10:30 AM EST Appointment Mammography/DXA at [place] [phone] Ladi Mendosa MD [facility] [address] [place] [address] 01/30/2024 11:30 AM EST Office Visit Dermatology at [address] [phone] Nilda Luis MD [facility] [place] [address] 02/14/2024 7:30 AM EST Appointment Radiology at [place] [phone] Joanna Watts MD [facility] [place] [address] documented as of this encounter Visit Diagnoses Diagnosis 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 [address] [address] PCP - General 01/11/10 documented as of this encounter
--- OUTSIDE RECORDS SUMMARY | 2023-09-25 11:46 | XMS_ITS | Encounter Summary ---
Author Organization [facility] Address [facility] [place] [address] Care Team Providers Care Automatic I Threading Machine Feeder Name Role Phone Trinh Coates MD Primary Care Provider [phone] Encounter Details Date Type Department Care Team (Late st Contact Info) Description 04/15/2018 Orders [place] [phone] Lakeisha Reza MD [facility] [place] [address] Social History Tobacco Use Types Packs/Day Years [...] 01/22/2024 10:30 AM EST Appointment Mammography/[place] [address] Ladi Mendosa MD [facility] DR [place] [address] 01/30/2024 11:30 AM EST Office Visit Dermatology at [facility] [address] [place] [address] Nilda Luis MD [facility] [address] 02/14/2024 7:30 AM [place] [phone] Joanna Watts MD [facility] [place] [address] documented as of this encounter Visit Diagnoses Not on filedocumented in this encounter Care Teams Automatic I Threading Machine Feeder Relationship Specialty Start Date End Date Trinh Coates MD [facility] [address] [facility] 1 [place] [address] PCP - General 01/11/10 documented as of this encounter
--- OUTSIDE RECORDS SUMMARY | 2023-09-25 11:46 | XMS_ITS | Encounter Summary ---
Author Organization [facility] Address [facility] [place] [address] Care Team Providers Care Tube Knitter Name Role Phone Trinh Coates MD Primary Care Provider Reason for Visit * Reason Comments Radiation Follow-up Encounter Details Date Type Department Care Team (Late st Contact Info) Description 05/14/2018 11:00 AM EDT Office Visit Radiation Oncology at [address] [phone] Emily Choi MD [facility] [place] [address] Malignant neoplasm of upper-outer quadrant [...] pN2a. Adjuvant chemo then given, followed by securities attorney exchange for implants. She is taking anne, started after xrt completion. ROS: Her psoriasis has started acting up, in areas of nipple grafts & along scars & on back. She plans to start triamcinolone cream for it, which Dr. Coates has rec'd & will pharmacy picking technician refillof clobetasol cream when she sees Dr. [...] IR Drain Check/Change/Remove 11/20/2017 Marcos Dey MD [facility] INTERVENTIONL RAD ??? IR MEDIPORT REMOVAL 01/25/2018 IR Mediport Removal 01/25/2018 Scooby Muñoz APRN [facility] INTERVENTIONL RAD ??? PRG EMG, LARYNX N/A 11/02/2015 FACIAL NERVE MONITORING, SETUP LARYNGEAL performed by Valentina Lucas MD at [facility] OR ??? PRO BREAST RECONSTRUC W FREE FLAP Bilateral 04/26/2017 @BREAST RECONSTRUCTION W/ FREE FLAP, SUSAN (WRVU 42.58) performed [facility] ??? PRO BREAST RECONSTRUC W FREE FLAP, W/O IMPLANT Bilateral 12/12/2017 @BREAST RECONSTRUCTION W/ LAT DORSI FLAP,W/O IMPLANT, SUSAN (WRVU 23.36) performed by Andre Gimenez MD at [facility] OR ??? PRO BREAST RECONSTRUC W TISS EXPANDR Bilateral 04/26/2017 BREAST RECONSTRUCTION, IMMEDIATE OR DELAYED, W/ TISSUE OPHTHALMIC LENS INSPECTOR, INCLUDING SUBSEQUENT EXPANSION (WRVU 18.5) performed by [...] performed by Andre Gimenez MD at [facility]IN OR ??? PRO MASTECTOMY, SIMPLE, [...] GENERAL HOSPITAL OR ??? PRO REPLACE TISSUE OPHTHALMIC LENS INSPECTOR Bilateral 12/12/2017 TISSUE OPHTHALMIC LENS INSPECTOR REPLACEMENT, WITH PERMANENT PROSTHESIS, SUSAN (WRVU 8.01) performed by Andre Gimenez MD at [facility] OR ??? PRO REVISE BREAST RECONSTRUCTION Left 06/22/2017 REVISION OF RECONSTRUCTED BREAST (WRVU 10.41) performed by Andre Gimenez MD at [facility] OR ??? PRO REVISE BREAST RECONSTRUCTION Bilateral 12/12/2017 REVISION OFRECONSTRUCTED BREAST, SUASN (WRVU 10.41) performed by Andre Gimenez MD [...] 01/22/2024 10:30 AM EST Appointment Mammography/[place] [phone] Ladi Mendosa MD [facility] HEMATOLOGY [place] [address] 01/30/2024 11:30 AM EST Office Visit Dermatology at [address] [place] [address] Nilda Luis MD [facility] [place] [address] 02/14/2024 7:30 AM EST [place] [address] Joanna Watts MD [facility] [place] [address] documented as of this encounter Visit Diagnoses Diagnosis Malignant neoplasm of upper-outer quadrant of left female breast, unspecified estrogen receptor status documented in this encounter Care Teams Tube Knitter Relationship Specialty Start Date End Date Trinh Coates MD [facility] [address] [place] [address] PCP - General 01/11/10 documented as of this encounter
--- OUTSIDE RECORDS SUMMARY | 2023-09-25 11:46 | XMS_ITS | Encounter Summary ---
Author Organization [facility] Address [facility] [place] [address] Care Team Providers Care Trustee Of Estate Name Role Phone Trinh Coates MD Primary Care Provider [phone] Encounter Details Date Type Department Care Team (Late st Contact Info) Description 01/08/2018 Telephone Hematology [place] [phone] Angela [place], JENNYFER Social History Tobacco Use [...] AM EST Appointment Mammography/[place] [phone] Ladi Mendosa MD [facility] DR HEMATOLOGY [place] [address] 01/30/2024 11:30 AM EST Office Visit Dermatology at [facility] [address] [place] [address] Nilda Luis MD [facility] [place] [address] 02/14/2024 7:30 AM [place] [address] Joanna Watts MD [facility] [place] [address] documented as of this encounter Visit Diagnoses Diagnosis Malignant neoplasm of upper-outer quadrant of left breast in female, estrogen receptor positive S/P breast reconstruction, bilateral Breast replaced by other means documented in this encounter Care Teams Trustee Of Estate Relationship Specialty Start Date End Date Trinh Coates MD [address] [place] [address] [address] PCP - General 01/11/10 documented as of this encounter
--- OUTSIDE RECORDS SUMMARY | 2023-09-25 11:46 | XMS_ITS | Encounter Summary ---
Author Organization [facility] Address [facility] [place] [address] Care Team Providers Care Superintendent Oil Field Drilling Name Role Phone Trinh Coates MD Primary Care Provider [phone] Encounter Details Date Type Department Care Team (Late st Contact Info) Description 05/27/2018 Orders [place] [phone] Lakeisha Reza MD [facility] [place] [address] Social History Tobacco Use Types Packs/Day Years [...] 01/22/2024 10:30 AM EST Appointment Mammography[place] [address] Ladi Mendosa MD [facility] DR [place] [address] 01/30/2024 11:30 AM EST Office Visit Dermatology at [facility] [address] [place] [address] Nilda Luis MD [facility] [place] [address] 02/14/2024 7:30 AM EST Appointment [place] [phone] Joanna Watts MD [facility] [place] [address] documented as of this encounter Visit Diagnoses Not on filedocumented in this encounter Care Teams Superintendent Oil Field Drilling Relationship Specialty Start Date End Date Trinh Coates MD [facility] [address] [facility] 1 [place] [address] PCP - General 01/11/10 documented as of this encounter
--- OUTSIDE RECORDS SUMMARY | 2023-09-25 11:46 | XMS_ITS | Encounter Summary ---
Author Organization [facility] [place] [address] Care Team Providers Care Trail Construction Worker Name Role Phone Trinh Coates MD Primary Care Provider [phone] Encounter Details Date Type Department Care Team (Late st Contact Info) Description 04/15/2018 Telephone [place] [phone] Lakeisha Reza MD [facility] [place] [address] Social History Tobacco Use Types Packs/Day Years [...] future. Lakeisha Reza PGY 4 Endocrinology Pager [phone] documented in this encounter Plan of Treatment Upcoming Encounters Date Type Department Care Team (Late st Contact Info) Description 01/22/2024 10:30 AM EST Appointment Mammography/[place] [address] Ladi Mendosa MD [facility] [place] [address] 01/30/2024 11:30 AM EST Office Visit Dermatology at [address] [place] [phone] Nilda Luis MD [facility] [place] [address] 02/14/2024 7:30 AM EST Appointment Radiology at [place] [phone] Joanna Watts MD [facility] [place] [address] documented as of this encounter Visit Diagnoses Diagnosis Hypokalemia Hypopotassemia documented in this encounter Care Teams Trail Construction Worker Relationship Specialty Start Date End Date Trinh Coates MD [address] [place] [address] PCP - General 01/11/10 documented as of this encounter
--- OUTSIDE RECORDS SUMMARY | 2023-09-25 11:46 | XMS_ITS | Encounter Summary ---
Author Organization [facility] Address [facility] [place] [address] Care Team Providers Care Dianetic Counselor Name Role Phone Trinh Coates MD Primary Care Provider [phone] Encounter Details Date Type Department Care Team (Late st Contact Info) Description 05/15/2018 Orders [place] [phone] Lakeisha Reza MD [facility] [place] [address] Hypokalemia; Hypertension, unspecified type Social History Tobacco [...] EST Appointment Mammography/[place] [phone] Ladi Mendosa MD [facility] [address] [place] [address] 01/30/2024 11:30 AM EST Office Visit Dermatology at [address] [place] [address] Nilda Luis MD [facility] [place] [address] 02/14/2024 7:30 AM EST Appointment Radiology at [facility] [place] [phone] Joanna Watts MD [facility] [place] [address] documented as of this encounter Visit Diagnoses Diagnosis Hypokalemia Hypopotassemia Hypertension, unspecified type documented in this encounter Care Teams Dianetic Counselor Relationship Specialty Start Date End Date Trinh Coates MD [facility] [address] [place] [address] PCP - General 01/11/10 documented as of this encounter
--- OUTSIDE RECORDS SUMMARY | 2023-09-25 11:46 | XMS_ITS | Encounter Summary ---
Author Organization [facility] [place] [address] Care Team Providers Care Piece Goods Packer Name Role Phone Trinh Coates MD Primary Care Provider [phone] Reason for Visit * Reason Comments Follow Up Surgery s/p implant replacem ent dos 12/12 Encounter Details Date Type Department Care Team (Late st Contact Info) Description 12/25/2017 11:20 AM EST Office [place] [address] Jolene Azevedo APRN [facility] [place] [place] [address] Surgery follow-up Social History Tobacco Use Types [...] and closure. Debridement of umbilicus. Deflation of laborer pullet farm volume, This leaves 450 cc in the left tissue laborer pullet farm and 500 cc on the right side Date of surgery: 04/26/17 Procedure(s): Bilateral breast reconstruction with attempted SALVADOR flaps, eventual tissue laborer pullet farm placement with [place]ra 600 cc expanders placed bilaterally and [...] AM EST Appointment Mammography/[place] [phone] Ladi Mendosa MD [facility] [place] [address] 01/30/2024 11:30 AM EST Office Visit Dermatology at [address] [place] [address] Nilda Luis MD [facility] [place] [address] 02/14/2024 7:30 AM EST Appointment Radiology at [facility] [place] [place] [phone] Joanna Watts MD [facility] [place] [address] documented as of this encounter Visit Diagnoses Diagnosis Surgery follow-up Follow-up examination, following unspecified surgery documented in this encounter Care Teams Piece Goods Packer Relationship Specialty Start Date End Date Trinh Coates MD [facility] [address] [place] [address] PCP - General 01/11/10 documented as of this encounter
--- OUTSIDE RECORDS SUMMARY | 2023-09-25 11:46 | XMS_ITS | Encounter Summary ---
Author Organization [facility] Address [facility] [place] [address] Care Team Providers Care Landscape Artist Name Role Phone Trinh Coates MD Primary Care Provider [phone] Encounter Details Date Type Department Care Team (Late st Contact Info) Description 04/10/2018 Telephone [place] [address] Patricia Betancourt MD [facility] [place] [address] Social History Tobacco Use Types Packs/Day Years [...] Dr Chen returns. Patricia Betancourt MD PGY-4 [facility] Endocrinology Fellow Pager #[phone] documented in this encounter Plan of Treatment Upcoming Encounters Date Type Department Care Team (Late st Contact Info) Description 01/22/2024 10:30 AM EST Appointment Mammography/DXA at [place] [phone] Ladi Mendosa MD [facility] DR [place] [address] 01/30/2024 11:30 AM EST Office Visit Dermatology at [facility] [address] [place] [address] Nilda Luis MD [facility] [place] [address] 02/14/2024 7:30 AM EST Appointment Radiology at [place] [phone] Joanna Watts MD [facility] [place] [address] documented as of this encounter Visit Diagnoses Not on filedocumented in this encounter Care Teams Landscape Artist Relationship Specialty Start Date End Date Trinh Coates MD [facility] [address] [place] [address] PCP - General 01/11/10 documented as of this encounter
--- OUTSIDE RECORDS SUMMARY | 2023-09-25 11:46 | XMS_ITS | Encounter Summary ---
Author Organization [facility] Address [facility] [place] [address] Care Team Providers Care Community Recreation Coordinator Name Role Phone Trinh Coates MD Primary Care Provider Encounter Details Date Type Department Care Team (Late st Contact Info) Description 03/12/2018 Orders Only Hematology [place] [address] Ricarda Mcclendon Social History Tobacco Use Types [...] 01/22/2024 10:30 AM EST Appointment Mammography/[place] [address] [facility] [address] [place] [address] 01/30/2024 11:30 AM EST Office Visit Dermatology at [facility] [address] [place] [address] [facility] [place] [address] 02/14/2024 7:30 AM EST Appointment [place] [phone] Joanna Watts MD [facility] [place] [address] documented as of this encounter Visit Diagnoses Not on filedocumented in this encounter Care Teams Community Recreation Coordinator Relationship Specialty Start Date End Date Trinh Coates MD [facility] [address] [facility] [address] [place] [address] PCP - General 01/11/10 documented as of this encounter
--- OUTSIDE RECORDS SUMMARY | 2023-09-25 11:46 | XMS_ITS | Encounter Summary ---
Author Organization [facility]ly [facility] Address [facility] [place] [address] Care Team Providers Care Weather Anchor Name Role Phone Trinh Coates MD Primary Care Provider [phone] Reason for Referral * Consultation (Routine) - [...] CONSULT CONTINUING PRG RADIATION MANAGEMENT, 5 TREATMENTS [address] Emily Choi MD [facility] [place] [address] [facility] On[facility] [address] [place] [phone] Referral ID Status Reason Start Date Expiration Date V isits Requested Visits Authorized [id number] Consult, Test & Treat 01/01/2018 04/22/2018 28 28 Encounter Details Date Type Department Care Team (Late st Contact Info) Description 12/18/2017 Orders Only Radiation Oncology at [address] [address] Emily Choi MD [facility] [place] [address] Malignant neoplasm of upper-outer quadrant of left [...] 01/22/2024 10:30 AM EST Appointment Mammography/DXA at [place] [phone] Ladi Mendosa MD [facility] [place] [address] 01/30/2024 11:30 AM EST Office Visit Dermatology at [address] [phone] Nilda Luis MD [facility] [place] [address] 02/14/2024 7:30 AM [place] [phone] Joanna Watts MD [facility] [place] [address] Scheduled Orders Name Type Priority Associated Diagnoses Orde r Schedule Simulation for Radiation Therapy Planning Procedures Routine Malignant neoplasm of upper-outer quadrant of left female breast, unspecified estrogen receptor status Ordered: 12/18/2017 documented as of this encounter Visit Diagnoses Diagnosis Malignant neoplasm of upper-outer quadrant of left female breast, unspecified estrogen receptor status documented in this encounter Care Teams Weather Anchor Relationship Specialty Start Date End Date Trinh Coates MD [address] [facility] 1 [place] [address] PCP - General 01/11/10 documented as of this encounter
--- OUTSIDE RECORDS SUMMARY | 2023-09-25 11:46 | XMS_ITS | Encounter Summary ---
Author Organization [facility] Address [facility] [place] [address] Care Team Providers Care Search Engine Optimization Analyst Name Role Phone Trinh Coates MD Primary Care Provider Reason for Visit * Auth/Cert Specialty Diagnoses / Procedures Referred By Diamante t Referred To Contact Diagnoses Malignant neoplasm of upper-outer quadrant of left female breast Estrogen receptor positive status (ER+) hx of breast cancer Procedures PRO REVISE BREAST RECONSTRUCTION PRO REPLACE TISSUE WIRE COATING OPERATOR METAL PRO SURGERY OF BREAST CAPSULE REVISION OFRECONSTRUCTED BREAST, SUSAN (WRVU 10.41) TISSUE WIRE COATING OPERATOR METAL REPLACEMENT, WITH PERMANENT PROSTHESIS, SUSAN (WRVU 8.01) BREAST, CAPSULOTOMY, OPEN PERIPROSTHETIC -SUSAN (WRVU 9.17) Referral ID Status Reason Start Date Expiration Date Visits Re quested Visits Authorized [id number] 1 1 Encounter Details Date Type Department Care Team (Latest Contact Info) Description 12/12/2017 1:02 PM EDT - 12/16/2017 4:31 PM EDT Hospital Encounter [address] [place] [address] Mali Lakhani MD [facility] [place] [address] Discharge Disposition: Home Social History Tobacco Use [...] flaps, placement of permanent implants, capsulotomies CPT: 30429, 85174, 57068, 58376 Surgical site: Breasts, back Side: susan Anesthesia: General Follow up: 10-14 Days After discharge AEE PAT: No Implants needed: 3x @BREAST RECONSTRUCTION W/ LAT DORSI FLAP,W/O IMPLANT, SUSAN (WRVU 23.36) TISSUE WIRE COATING OPERATOR METAL REPLACEMENT, WITH PERMANENT PROSTHESIS, SUSAN (WRVU 8.01) 04/26/17 Procedure(s): Bilateral breast reconstruction with attempted SALVADOR flaps, eventual tissue curtain cutter hand placement with Whitney Artdenissea??600 cc expanders placed bilaterally and filled??with 450 cc of methylene blue impregnated saline.) Complications: right??parietal and visceral pleural tear, arterial flap failure bilaterally ?? Date of surgery: 06/22/17 Procedure(s) left breast wound debridement, excision and closure. Debridement of umbilicus. Deflation of curtain cutter hand volume, This leaves 450 cc in the left tissue curtain cutter hand and 500 cc on the right side [...] PM Emily Choi MD Radiation Oncology at [facility] [phone] 12/25/2017 11:20 AM Jolene Azevedo APRN Plastic Surgery at [place] Arrive at: Etl Consultant Area 4M [phone] 03/12/2018 10:30 AM Lakeisha Reza MD; Flip Angel MD Endocrinology at [place] Arrive at: Etl Consultant Area [phone] 06/05/2018 2:30 PM Josias Barnett MD Hematology and Oncology at [place] Arrive at: Etl Consultant Area [phone] MEDICATIONS: Your Medications New Medications Dose Details [...] called in to our prescription line at [phone]. Narcotic renewals may be requested from 8am-4pm [...] called in to our prescription line at [phone]. Narcotic renewals may be requested from 8am-4pm [...] Sunday 8 am to 5 pm Call [phone] On weekends or after hours: Call [phone] and ask the composition board press operator to page the Plastic Surgery Resident weight control engineer. General Instructions None Future Appointments and Orders Future Appointments and Orders Future Appointments Provider Department Dept Phone 12/24/2017 3:00 PM Emily Choi MD Radiation Oncology at [facility] [phone] 12/25/2017 11:20 AM Jolene Azevedo APRN Plastic Surgery at [place] Arrive at: Etl Consultant Area 4M [phone] 03/12/2018 10:30 AM Lakeisha Reza MD; Flip Angel MD Endocrinology at [place] Arrive at: Etl Consultant Area [phone] 06/05/2018 2:30 PM Josias Barnett MD Hematology and Oncology at [place] Arrive at: Etl Consultant Area 3K [phone] Discharge References/Attachments: Discharge References/Attachments None Electronically Signed [...] PM Emily Choi MD Radiation Oncology at [facility] [phone] 12/25/2017 11:20 AM Jolene Azevedo APRN Plastic Surgery at [place] Arrive at: Etl Consultant Area 4M [phone] 03/12/2018 10:30 AM Lakeisha Reza MD; Flip Angel MD Endocrinology at [place] Arrive at: Etl Consultant Area [phone] 06/05/2018 2:30 PM Josias Barnett MD Hematology and Oncology at [place] Arrive at: Etl Consultant Area 3K [phone] MEDICATIONS: Your Medications New Medications Dose Details [...] called in to our prescription line at [phone]. Narcotic renewals may be requested from 8am-4pm [...] called in to our prescription line at [phone]. Narcotic renewals may be requested from 8am-4pm [...] Sunday 8 am to 5 pm Call [phone] On weekends or after hours: Call [phone] and ask the composition board press operator to page the Plastic Surgery Resident weight control engineer. documented in this encounter Medications at Time [...] (moderate pain (4-6)). 20 tablet 12/16/2017 12/25/2017 gabapentin (NEURONTIN) 100 mg Capsule Take 1 [...] post-op course Kaveh Whiteside MD 12/15/2017 Pager: [phone] * Aly Jaimes MD - 12/14/2017 7:06 [...] hematoma or infection, appropriately TTP A/P: Wendy Snadoval is a 52 y.o. female patient s/p [...] post-op course Aly Jaimes MD 12/14/2017 Pager: [phone] * Lakia Casey RN - 12/13/2017 8:59 PM EDT Images from the original note were not included. Infiltration/Extravasation Scale Wendy Sandoval [id number]/[id number] Infiltration appearance: Infiltration harm % for [...] PM Name of Plastics MD (if consulted) SENIOR ELECTRICAL CONTROLS ENGINEER CARING FOR THIS PATIENT WILL CONTINUE TO [...] post-op course Aly Jaimes MD 12/13/2017 Pager: [phone] * Andreea Garcia MD - 12/13/2017 12:33 [...] to monitor -home CPAP Andreea Garcia Pager: [phone] 12/13/17 12:39 AM * Valerie Stratton RN [...] 04/26/2017 Performed by Mali Lakhani MD at [facility] OR ??? BREAST BIOPSY Right 11/01 ??? BREAST RECONSTRUCTION, IMMEDIATE OR DELAYED, W/ TISSUE WIRE COATING OPERATOR METAL, INCLUDING SUBSEQUENT EXPANSION(WRVU 18.5) Bilateral 04/26/2017 Performed by Mali Lakhani MD at [facility] OR ??? SECTION x 2 ??? DEBRIDEMENT SKIN AND SUBCU, BREAST (WRVU 1.01) 06/22/2017 Performed by Mali Lakhani MD at [facility] OR ??? EXCISION OF RIB, PARTIAL (WRVU 7.26) Bilateral 04/26/2017 Performed by Mali Lakhani MD at [facility] OR ??? FACIAL NERVE MONITORING, SETUP LARYNGEAL (WRVU 1.57) N/A 11/02/2015 Performed by Valentina Lucas MD at [facility] OR ??? FTSG, FREE, DIR CLOSE DONOR SITE, TRUNK, 20 SQ CM OR LESS (WRVU 9.15) Bilateral 04/26/2017 Performed by Mali Lakhani MD at [facility] OR ??? HAND SURGERY Right ??? LYMPHADENECTOMY, AXILLARY, COMPLETE (WRVU 13.87) Left 04/26/2017 Performed by Jolie Menendez MD at [facility] OR ??? MASTECTOMY, SIMPLE, COMPLETE-SUSAN (WRVU 15.85) Bilateral 04/26/2017 Performed by Jolie Menendez MD at [facility] OR ??? MODIFIER , NIPPLE SPARING Bilateral 04/26/2017 Performed by Jolie Menendez MD at [facility] OR ??? PARATHYROIDECTOMY OR EXPLORATION OF PARATHYROID(S) (WRVU 15.6) N/A 11/02/2015 Performed by Valentina Lucas MD at [facility] OR ??? PRG EMG, LARYNX N/A 11/02/2015 FACIAL NERVE MONITORING, SETUP LARYNGEAL performed by Valentina Lucas MD at [facility] OR ??? PRO BREAST RECONSTRUC W FREE FLAP Bilateral 04/26/2017 @BREAST RECONSTRUCTION W/ FREE FLAP, SUSAN (WRVU 42.58) performed by Mali Lakhani MD at [facility] ??? PRO BREAST RECONSTRUC W TISS EXPANDR Bilateral 04/26/2017 BREAST RECONSTRUCTION, IMMEDIATE OR DELAYED, W/ TISSUE WIRE COATING OPERATOR METAL, INCLUDING SUBSEQUENT EXPANSION (WRVU 18.5) performed by Mali Lakhani MD at [facility] OR ? ? PRO DEBRIDEMENT SUBCUTANEOUS TISSUE 20 SQCM/< 06/22/2017 DEBRIDEMENT SKIN AND SUBCU, BREAST (WRVU 1.01) performed by Mali Lakhani MD at [facility] OR ??? PRO EXPLORE PARATHYROID GLANDS N/A 11/02/2015 PARATHYROIDECTOMY OR EXPLORATION OF PARATHYROID(S) performed by Valentina Lucas MD at [facility] OR ? ? PRO FULL THICK GRFT TRUNK <20 SQCM Bilateral 04/26/2017 FTSG, FREE, DIR CLOSE DONOR SITE, TRUNK, 20 SQ CM OR LESS (WRVU 9.15) performed by Mali Lakhani MD at [facility] OR ??? PRO MASTECTOMY, SIMPLE, COMPLETE Bilateral 04/26/2017 MASTECTOMY, SIMPLE, COMPLETE-SUSAN (WRVU 15.85) performed by Jolie Menendez MD at [facility] OR ??? PRO PARTIAL REMOVAL OF RIB Bilateral 04/26/2017 EXCISION OF RIB, PARTIAL (WRVU 7.26) performed by Mali Lakhani MD at [facility] OR ??? PRO REMOVE ARMPITS LYMPH NODES COMPLT Left 04/26/2017 LYMPHADENECTOMY, AXILLARY, COMPLETE (WRVU 13.87) performed by Jolie Menendez MD at [facility] OR ??? PRO REVISE BREAST RECONSTRUCTION Left 06/22/2017 REVISION OF RECONSTRUCTED BREAST (WRVU 10.41) performed by Mali Lakhani MD at [facility] OR ??? PRO THYMECTOMY, TRANSCERVICAL N/A 11/02/2015 THYMECTOMY, TRANSCERVICAL APPROACH performed by Valentina Lucas MD at [facility] OR ??? REVISION OF RECONSTRUCTED BREAST (WRVU 10.41) Left 06/22/2017 Performed by Mali Lakhani MD at [facility] OR ??? SHOULDER SURGERY Left ??? THYMECTOMY, TRANSCERVICAL APPROACH (WRVU 17.16) N/A 11/02/2015 Performed by Valentina Lucas MD at [facility] OR ??? UMBILICAL HERNIA REPAIR [...] Pallavi Green MD Plastic Surgery Resident P# [id number] documented in this encounter Miscellaneous Notes * Op Note - Mali Lakhani MD - 12/16/2017 4:31 PM EDT [facility] Operative Note Patient Name: Wendy Sandoval : [id number] MR#: [id number] Case Date: 12/12/2017 Surgeon: Surgeon(s) and Role: * Mali Lakhani MD - Primary * Pallavi Green MD - Resident-Surgeon Hubert Preoperative diagnosis: hx of breast cancer Postoperative diagnosis: hx of breast cancer Procedure(s) (LRB): REVISION OFRECONSTRUCTED BREAST, SUSAN (WRVU 10.41) (Bilateral) @BREAST RECONSTRUCTION W/ LAT DORSI FLAP,W/O IMPLANT, SUSAN (WRVU 23.36) (Bilateral) TISSUE WIRE COATING OPERATOR METAL REPLACEMENT, WITH PERMANENT PROSTHESIS, SUSAN (WRVU 8.01) (Bilateral) Anesthesia: General Estimated Blood Loss: 100 mL Implant Name Type Inv. Item Serial No. Collator Hand Lot No. LRB No. Used Action MAMMA,GEL,XTRA,MOD+,RND,405CC ([id number]) (AUTOREQ) - [id number] IMPLANTS MAMMA,GEL,XTRA,MOD+,RND,405CC ([id number]) (AUTOREQ) [id number] [employer] [id number] Right 1 Implanted MAMMA,GEL,XTRA,MOD+,RND,405CC ([id number]) (AUTOREQ) - [id number] IMPLANTS MAMMA,GEL,XTRA,MOD+,RND,405CC ([id number]) (AUTOREQ) [id number] [employer] [id number] Left 1 Implanted Specimens removed during surgery: None Drains: # 15 juilano x 4 Drain/Device Site 12/12/17 1805 Left [...] both sides we thendissected into the tissue curtain cutter hand pocket on both sides and removed intact [...] EVALUATION: * Consult Note - Lanre Odonnell [facility] - 12/15/2017 10:12 AM EDT Clinical Pharmacist Note - Renal Dose Adjustment for Antimicrobials Wendy Sandoval (A# [id number]) is being treated with the following antimicrobial [...] have shown less than 100 output during chain dyer.Patient's pain has been well controlled. Will continue [...] Treviño was pulled today. Due to void [id number]. Daughter at bedside. PLAN MOVING FORWARD: Pain [...] ??complicated by intraoperative demise followed by Tissue Global Supply Chain Vice President placement. Pt had Chemo after surgery and it was completed 11/15. Pt is , works from home, dtr is going to move to [place] and be a speech pathologist, her son is not working presently and is at home. He states he will stay with me until I am feeling good. Pt will have RT and has met with Dr Mendoza. I explained what to expect when she goes M-F. Pt has used [facility] in the past but does not [...] Operative Note Patient Name: Wendy Sandoval : [id number] MR#: [id number] Case Date: 12/12/2017 Surgeon: Surgeon(s) and Role: * Mali Lakhani MD - Primary * Pallavi Green MD - Resident-Surgeon Hubert Preoperative diagnosis: hx of breast cancer Postoperative diagnosis: hx of breast cancer Procedure(s) (LRB): REVISION OFRECONSTRUCTED BREAST, SUSAN (WRVU 10.41) (Bilateral) @BREAST RECONSTRUCTION W/ LAT DORSI FLAP,W/O IMPLANT, SUSAN (WRVU 23.36) (Bilateral) TISSUE WIRE COATING OPERATOR METAL REPLACEMENT, WITH PERMANENT PROSTHESIS, SUSAN (WRVU 8.01) (Bilateral) Anesthesia: General Findings: Implant Name Type Inv. Item Serial No. Collator Hand Lot No. LRB No. Used Action MAMMA,GEL,XTRA,MOD+,RND,405CC ([id number]) (AUTOREQ) - [id number] IMPLANTS MAMMA,GEL,XTRA,MOD+,RND,405CC ([id number]) (AUTOREQ) [id number] [employer] [id number] Right 1 Implanted MAMMA,GEL,XTRA,MOD+,RND,405CC ([id number]) (AUTOREQ) - [id number] IMPLANTS MAMMA,GEL,XTRA,MOD+,RND,405CC ([id number]) (AUTOREQ) [id number] [employer] [id number] Left 1 Implanted Complications: none Estimated Blood [...] 01/22/2024 10:30 AM EST Appointment Mammography/[place] [address] Ladi Mendosa MD [facility] DR HEMATOLOGY [place] [address] 01/30/2024 11:30 AM EST Office Visit Dermatology at [address] [place] [address] Nilda Luis MD [facility] [place] [address] 02/14/2024 7:30 AM EST Appointment Radiology at [facility] [place] [id number] Joanna Watts MD [facility] [place] [address] documented as of this encounter Procedures Procedure Name Priority Date/Time Associated Diagnosis Comments COMPREHENSIVE METABOLIC PANEL Routine 12/15/2017 3:20 PM EDT HEMOGRAM Routine 12/15/2017 10:05 AM EDT DIFFERENTIAL, AUTOMATED Routine 12/16/19 18 10:05 AM EDT CBC (WITH DIFF) Routine 12/15/2017 10:05 AM EDT BASIC METABOLIC PANEL Routine 12/15/2017 10:05 AM EDT BASIC METABOLIC PANEL Routine 12/14/2017 4:40 AM EDT SCAN, PERIPHERAL BLOOD Routine 8 5:16 AM EDT HEMOGRAM Routine 12/13/2017 5:16 AM EDT DIFFERENTIAL, AUTOMATED Routine 12/14/19 18 5:16 AM EDT CBC (WITH DIFF) Routine 12/13/2017 5:16 AM EDT MAGNESIUM Routine 12/13/2017 5:16 AM EDT BASIC METABOLIC PANEL Routine 12/13/2017 5:16 AM EDT TISSUE WIRE COATING OPERATOR METAL REPLACEMENT, WITH PERMANENT PROSTHESIS, SUSAN (WRVU 7.49) Yes 12/12/2017 3:52 PM EDT hx of breast cancer @BREAST RECONSTRUCTION W/ LAT DORSI FLAP,W/O IMPLANT, SUSAN (WRVU 23.36) Yes 12/12/2017 3:52 PM EDT hx of breast cancer REVISION OFRECONSTRUCTED BREAST, SUSAN (WRVU 11.17) Yes 12/12/2017 3:52 PM EDT hx of breast cancer TISSUE WIRE COATING OPERATOR METAL REPLACE, W/PERMANENT PROSTHESIS, SUSAN Routine 12/12/2017 1:13 PM EDT BREAST RECONSTRUCTION W/ LAT DORSI FLAP,W OR W/O IMPLANT, SUSAN Routine 12/12/2017 1:13 PM EDT TONG SETTER SCAN 12/12/2017 12:00 AM EDT documented in this encounter Results * (ABNORMAL) Comprehensive metabolic panel (non-fasting) (12/15/2017 3:20 PM EDT) Glucose 182 65 - 199 mg/dL [facility] Comment:Diabetes: >=200 mg/d L plus symptoms Blood Urea Nitrogen 24(H) 8 - 18 mg/dL [facility] Creatinine 1.35(H) 0.70 - 1.20 mg/dL [facility] Sodium 144 135 - 145 mmol/L [facility] Potassium 3.8 3.5 - 5.0 mmol/L [facility] Comment: Please note: ??Patients with WBC >100,000 may have falsely elevated Potassium levels. ??For accurate Potassium quantification in these patients send serum separator tube (gold top) for subsequent determinations. ??Contact the Clinical Chemistry Laboratory if there are any questions. Chloride 109(H) 98 - 107 mmol/L [facility] Carbon Dioxide 22 22 - 31 mmol/L [facility] Anion Gap 13 5 - 15 mmol/L [facility] Calcium 8.2(L) 8.5 - 10.5 mg/dL [facility] Protein, Total 5.5(L) 6.1 - 8.0 gm/dL [facility] Albumin 2.6(L) 3.2 - 5.2 gm/dL [facility] Aspartate Aminotransferase 15 0 - 30 unit/L [facility] Alanine Aminotransferase <5 0 - 30 unit/L [facility] Alkaline Phosphatase 77 40 - 104 unit/L [facility] Bilirubin, Total <0.2(L) 0.2 - 1.3 mg/dL [facility] Est Glomerular Filtration Rate 44(L) >=60 mL/min/1. 73 m?? [facility] Comment: The eGFR was calculated using the CKD-EPI equation. As with all creatinine based estimates of kidney function, eGFR values calculated with the CKD-EPI equation are not accurate in patients with acute kidney failure, extremes of body mass or the acutely ill. [email or web address]/[email or web address] eGFR 51(L) >=60 mL/min/1. 73 m?? [facility] Comment: The eGFR was calculated using the CKD-EPI equation. As with all creatinine based estimates of kidney function, eGFR values calculated with the CKD-EPI equation are not accurate in patients with acute kidney failure, extremes of body mass or the acutely ill. [email or web address] Blood specimen (specimen) 12/15/2017 3:20 PM EDT 12/15/2017 3:29 PM EDT Narrative Resulting Agency Comment Spec In Lab Mali Lakhani MD CHEMISTRY ORDERABLES [facility] [place] [address] * (ABNORMAL) Differential, Automated (12/15/2017 10:05 AM EDT) Neutrophil % 76.4 % [facility] Neutrophil Absolute 9.98(H) 1.70 - 6.10 x10(3)/mc L [facility] Lymph % 8.9 % [facility] Lymphocytes Abs 1.2 0.9 - 3.2 x10(3)/mc L [facility] Monocyte % 7.8 % [facility] Monocyte Abs 1.0(H) 0.3 - 0.9 x10(3)/[facility] Eos % 5.2 % [facility] Eosinophils Abs 0.7(H) 0.0 - 0.4 x10(3)/[facility] Basophil % 0.7 % [facility] Baso Absolute 0.1 0.0 - 0.1 x10(3)/[facility] Immature Gran % 1.00 % [facility] Comment: Immature granulocytes(IG's)percentage and absolute count will include metamyelocytes, myelocytes, and promyelocytes. Blood smears from CBCs yielding IG's will be scanned manually for concordance. If this scan disagrees with the automated IG or if promyelocytes are noted, a manual differential will be performed. Immature Gran Absolute 0.13(H) 0.00 - 0.04 x10(3)/[facility] Blood specimen (specimen) 12/15/2017 10:05 AM EDT 12/15/2017 10:23 AM EDT Narrative Resulting Agency Comment Spec In Lab Aly Jaimes MD HEMATOLOGY ORDERABLE S [facility] [place] [address] * (ABNORMAL) Hemogram (12/15/2017 10:05 AM EDT) White Blood Cell 13.1(H) 4.0 - 9.5 x10(3)/[facility] Red Blood Cell 2.50(L) 4.00 - 5.21 x10(6)/[facility] Hemoglobin 7.7(L) 11.7 - 15.5 gm/dL [facility] Hematocrit 24.6(L) 35.7 - 45.8 % [facility] Mean Cell Volume 98.4(H) 82.6 - 94.4 fL [facility] Mean Cell Hemoglobin 30.8 27.1 - 32.0 pg [facility] Mean Cell Hemoglobin Concentration 31.3(L) 31.7 - 35.0 gm/dL [facility] Platelet 339 145 - 357 x10(3)/mc L [facility] RDW Standard Deviation 55.8(H) 37.0 - 46.0 fL [facility] RDW coefficient of variation 15.6(H) 11.5 - 14.1 % [facility] Mean Platelet Volume 9.2 7.6 - 12.9 [facility] NRBC% auto 0.0 % [facility] NRBC Absolute 0.000 0.000 - 0.000 x10(3)/mc L [facility] Blood specimen (specimen) 12/15/2017 10:05 AM EDT 12/15/2017 10:23 AM EDT Narrative Resulting Agency Comment Spec In Lab Aly Jaimes MD HEMATOLOGY ORDERABLE S [facility] [place] [address] * (ABNORMAL) Basic Metabolic Panel (non-fasting) (12/15/2017 10:05 AM EDT) Glucose 199 65 - 199 mg/dL [facility] Comment:Diabetes: >=200 mg/d L plus symptoms Blood Urea Nitrogen 28(H) 8 - 18 mg/dL [facility] Creatinine 1.40(H) 0.70 - 1.20 mg/dL [facility] Sodium 143 135 - 145 mmol/L [facility] Potassium 3.6 3.5 - 5.0 mmol/L [facility] Comment: Please note: ??Patients with WBC >100,000 may have falsely elevated Potassium levels. ??For accurate Potassium quantification in these patients send serum separator tube (gold top) for subsequent determinations. ??Contact the Clinical Chemistry Laboratory if there are any questions. Chloride 110(H) 98 - 107 mmol/L [facility] Carbon Dioxide 22 22 - 31 mmol/L [facility] Anion Gap 11 5 - 15 mmol/L [facility] Calcium 8.2(L) 8.5 - 10.5 mg/dL [facility] Est Glomerular Filtration Rate 42(L) >=60 mL/min/1. 73 m?? [facility] Comment: The eGFR was calculated using the CKD-EPI equation. As with all creatinine based estimates of kidney function, eGFR values calculated with the CKD-EPI equation are not accurate in patients with acute kidney failure, extremes of body mass or the acutely ill. [email or web address]/[email or web address] eGFR 49(L) >=60 mL/min/1. 73 m?? [facility] Comment: The eGFR was calculated using the CKD-EPI equation. As with all creatinine based estimates of kidney function, eGFR values calculated with the CKD-EPI equation are not accurate in patients with acute kidney failure, extremes of body mass or the acutely ill. [email or web address] Blood specimen (specimen) 12/15/2017 10:05 AM EDT 12/15/2017 10:23 AM EDT Narrative Resulting Agency Comment Spec In Lab Mali Lakhani MD CHEMISTRY ORDERABLES [facility] [place] [address] * (ABNORMAL) Basic Metabolic Panel (non-fasting) (12/14/2017 4:40 AM EDT) Glucose 159 65 - 199 mg/dL [facility] Comment:Diabetes: >=200 mg/d L plus symptoms Blood Urea Nitrogen 34(H) 8 - 18 mg/dL [facility] Comment:delta result recheck ed-KLA Creatinine 2.20(H) 0.70 - 1.20 mg/dL [facility] Comment:delta result recheck ed-KLA Sodium 137 135 - 145 mmol/L [facility] Potassium 3.5 3.5 - 5.0 mmol/L [facility] Comment: Please note: ??Patients with WBC >100,000 may have falsely elevated Potassium levels. ??For accurate Potassium quantification in these patients send serum separator tube (gold top) for subsequent determinations. ??Contact the Clinical Chemistry Laboratory if there are any questions. Chloride 99 98 - 107 mmol/L [facility] Carbon Dioxide 22 22 - 31 mmol/L [facility] Anion Gap 16(H) 5 - 15 mmol/L [facility] Calcium 7.6(L) 8.5 - 10.5 mg/dL [facility] Est Glomerular Filtration Rate 25(L) >=60 mL/min/1. 73 m?? [facility] Comment: The eGFR was calculated using the CKD-EPI equation. As with all creatinine based estimates of kidney function, eGFR values calculated with the CKD-EPI equation are not accurate in patients with acute kidney failure, extremes of body mass or the acutely ill. [email or web address] eGFR 29(L) >=60 mL/min/1. 73 m?? [facility] Comment: The eGFR was calculated using the CKD-EPI equation. As with all creatinine based estimates of kidney function, eGFR values calculated with the CKD-EPI equation are not accurate in patients with acute kidney failure, extremes of body mass or the acutely ill. [email or web address] Blood specimen (specimen) 12/14/2017 4:40 AM EDT 12/14/2017 4:57 AM EDT Narrative Resulting Agency Comment Spec In Lab Mali Lakhani MD CHEMISTRY ORDERABLES [facility] [place] [address] * Scan, Peripheral Blood (12/13/2017 5:16 AM EDT) Plat estimate Increased [facility] RBC Morphology Abnormal [facility] Macrocyte 1-5 /HPF [facility] Sammie Cells 1-5 /HPF [facility] Blood specimen (specimen) 12/13/2017 5:16 AM EDT 12/13/2017 5:25 AM EDT Narrative Resulting Agency Comment Spec In Lab Pallavi Green MD HEMATOLOGY ORDERABLES [facility] [place] [address] * (ABNORMAL) Differential, Automated (12/13/2017 5:16 AM EDT) Neutrophil % 89.7 % [facility] Neutrophil Absolute 20.59(H) 1.70 - 6.10 x10(3)/mc L [facility] Lymph % 1.9 % [facility] Lymphocytes Abs 0.4(L) 0.9 - 3.2 x10(3)/mc L [facility] Monocyte % 7.4 % [facility] Monocyte Abs 1.7(H) 0.3 - 0.9 x10(3)/mc L [facility] Eos % 0.0 % [facility] Eosinophils Abs 0.0 0.0 - 0.4 x10(3)/mc L [facility] Basophil % 0.2 % [facility] Baso Absolute 0.0 0.0 - 0.1 x10(3)/mc L [facility] Immature Gran % 0.80 % [facility] Comment: Immature granulocytes(IG's)percentage and absolute count will include metamyelocytes, myelocytes, and promyelocytes. Blood smears from CBCs yielding IG's will be scanned manually for concordance. If this scan disagrees with the automated IG or if promyelocytes are noted, a manual differential will be performed. Immature Gran Absolute 0.18(H) 0.00 - 0.04 x10(3)/mc L [facility] Blood specimen (specimen) 12/13/2017 5:16 AM EDT 12/13/2017 5:25 AM EDT Narrative Resulting Agency Comment Spec In Lab Pallavi Green MD HEMATOLOGY ORDERABLES [facility] [place] [address] * (ABNORMAL) Hemogram (12/13/2017 5:16 AM EDT) White Blood Cell 23.0(H) 4.0 - 9.5 x10(3)/mc L [facility] Red Blood Cell 2.89(L) 4.00 - 5.21 x10(6)/mc L [facility] Hemoglobin 9.0(L) 11.7 - 15.5 gm/dL [facility] Hematocrit 28.4(L) 35.7 - 45.8 % [facility] Mean Cell Volume 98.3(H) 82.6 - 94.4 fL [facility] Mean Cell Hemoglobin 31.1 27.1 - 32.0 pg [facility] Mean Cell Hemoglobin Concentration 31.7 31.7 - 35.0 gm/dL [facility] Platelet 380(H) 145 - 357 x10(3)/mc L [facility] RDW Standard Deviation 54.8(H) 37.0 - 46.0 fL [facility] RDW coefficient of variation 15.1(H) 11.5 - 14.1 % [facility] Mean Platelet Volume 8.9 7.6 - 12.9 fL [facility] NRBC% auto 0.0 % [facility] NRBC Absolute 0.000 0.000 - 0.000 x10(3)/mc L [facility] Blood specimen (specimen) 12/13/2017 5:16 AM EDT 12/13/2017 5:25 AM EDT Narrative Resulting Agency Comment Spec In Lab Pallavi Green MD HEMATOLOGY ORDERABLES Performing Organization Address City/[facility]/ZIP Co de Phone Number [facility] [place] [address] * (ABNORMAL) Magnesium (12/13/2017 5:16 AM EDT) Magnesium 0.63(L) 0.69 - 1.07 mmol/L [facility] Blood specimen (specimen) 12/13/2017 5:16 AM EDT 12/13/2017 5:25 AM EDT Narrative Resulting Agency Comment Spec In Lab Mali Lakhani MD CHEMISTRY ORDERABLES Performing Organization Address [facility] Co de Phone Number [facility] [place] [address] * (ABNORMAL) Basic Metabolic Panel (non-fasting) (12/13/2017 5:16 AM EDT) Pathologist [facility] Glucose 184 65 - 199 mg/dL [facility] Comment:Diabetes: >=200 mg/d L plus symptoms Blood Urea Nitrogen 14 8 - 18 mg/dL [facility] Creatinine 1.19 0.70 - 1.20 mg/dL [facility] Sodium 142 135 - 145 mmol/L [facility] Potassium 3.2(L) 3.5 - 5.0 mmol/L [facility] Comment: Please note: ??Patients with WBC >100,000 may have falsely elevated Potassium levels. ??For accurate Potassium quantification in these patients send serum separator tube (gold top) for subsequent determinations. ??Contact the Clinical Chemistry Laboratory if there are any questions. Chloride 103 98 - 107 mmol/L [facility] Carbon Dioxide 20(L) 22 - 31 mmol/L [facility] Anion Gap 19(H) 5 - 15 mmol/L [facility] Calcium 7.8(L) 8.5 - 10.5 mg/dL [facility] Est Glomerular Filtration Rate 52(L) >=60 mL/min/1. 73 m?? [facility] Comment: The eGFR was calculated using the CKD-EPI equation. As with all creatinine based estimates of kidney function, eGFR values calculated with the CKD-EPI equation are not accurate in patients with acute kidney failure, extremes of body mass or the acutely ill. [email or web address]/[email or web address] eGFR 60 >=60 mL/min/1. 73 m?? [facility] Comment: The eGFR was calculated using the CKD-EPI equation. As with all creatinine based estimates of kidney function, eGFR values calculated with the CKD-EPI equation are not accurate in patients with acute kidney failure, extremes of body mass or the acutely ill. [email or web address]/[facility] Blood specimen (specimen) 12/13/2017 5:16 AM EDT 12/13/2017 5:25 AM EDT Narrative Resulting Agency Comment Spec In Lab Mali Lakhani MD CHEMISTRY ORDERABLES [facility] [place] [place] [address] * SCAN DOC: TONG SETTER (12/12/2017 12:00 AM EDT) Anatomical Region Laterality [...] ONCE, 1 dose, On Sosa 12/13/17 at 0100, Routine Given 12/13/2017 12:36 AM EDT 10 mg labetalol (NORMODYNE,TRANDATE) injection 20 mg 20 mg, Intravenous, ONCE, 1 dose, On Sun12/13/17 at 0315, STAT Given 12/13/2017 2:55 AM [...] infusion 75 mL/hr, Intravenous, CONTINUOUS, Starting on Sun12/13/17 at 2230, Until Sun12/16/17 at 1831 New [...] 100 mg, Oral, DAILY, First dose on Sun12/13/17 [...] 20 mEq, Oral, DAILY, First dose on Sosa 12/13/17 at 0115, Until Discontinued, 20 mEq tablet [...] Routine 0551 (Given - Provider: Jamil Wallace RN)1418 (Given - Provider: Karley Easton RN)2023 (Given - Provider: Celine German, JENNYFER) 0530 (Given - Provider: Celine German, JENNYFER)1429 (Given - Provider: Karley Easton RN)2047 (Given - Provider: Gerald Vanessa, JENNYFER) 0617 (Given - Provider: Gerald Vanessa, JENNYFER)1349 (Given - Provider: Andreea Singleton RN) atorvastatin (LIPITOR) tablet 20 mg 20 mg, Oral, EVERY EVENING, First dose on Sun12/12/17 at 2300, Until Discontinued, Routine 2023 (Given - Provider: Celine German, JENNYFER) 2046 (Given - Provider: Gerald Vanessa, JENNYFER) ceFAZolin (ANCEF) [...] HOURS, First dose (after last reorder) on [place] 12/15/17 at 1400, Until Discontinued, Administer over 30 Minutes, Renally dosed per P&T approved Renal Dosing Policy, Indication for (Active or Suspected): Prophylaxis 1430 (New Bag - Provider: Karley Easton RN)1500 (Stopped - Provider: Karley Easton RN) 0135 (New Bag - Provider: Gerald Vanessa, JENNYFER)0205 (Stopped - Provider: Gerald Vanessa RN) ceFAZolin (ANCEF) 1g in dextrose 5% 50mL 1 g, Intravenous, EVERY 8 HOURS, First dose (after last modification) on [place] 12/16/17 at 1000, Until Discontinued, Administer over [...] Discontinued, Routine 0552 (Given - Provider: Jamil Wallace, JENNYFER)1419 (Given - Provider: Karley Easton RN) 0009 (Given - Provider: Celine German RN)0928 (Given - Provider: Karley Easton RN)1429 (Given - Provider: Karley Easton, JENNYFER)204 (Given - Provider: Gerald Vanessa RN) 06 (Given - Provider: Gerald Vanessa RN)134 (Given [...] - Provider: Alyssa Cruz)2024 (Given - Provider: Cleine German RN) 09 (Given - Provider: Karley Easton RN)2046 (Given - Provider: Gerald Vanessa RN) 0849 (Given - Provider: Andreea Singleton RN) enoxaparin (LOVENOX) injection 40 mg 40 mg, Subcutaneous, NIGHTLY, First dose on Sun12/13/17 at 2100, Until Discontinued, Routine 2023 (Given - Provider: Celine German, JENNYFER) 2046 (Given - Provider: Gerald Vanessa RN) FLUoxetine (PROzac) capsule 40 mg 40 mg, Oral, DAILY, First dose on Sun12/13/17 at 0900, Until Discontinued, Routine 0918 (Given [...] 100 mg, Oral, DAILY, First dose on Sun12/13/17 at 0900, Until Discontinued, Routine 1200 (Not [...] RN) 09 (Given - Provider: Karley Easton RN)142 (Given [...] running)2023 (Given - Provider: Celine German RN) 0929 (Given - Provider: Karley Easton, RN)2047 (Given - Provider: Gerald Vanessa, RN) 0847 (Given - Provider: Andreea Singleton RN) [...] Wallace RN)1058 (See Alternative - Provider: Alyssa Cruz)1836 (See Alternative - Provider: Karley Easton, JENNYFER) 0604 (See Alternative - Provider: Celine German RN)2046 (See Alternative - Provider: Gerald Vanessa RN) 0919 (See Alternative - Provider: Andreea Singleton RN)1556 (See Alternative - Provider: Andreea Singleton RN) [...] Easton RN) 0604 (Given - Provider: Celine German, JENNYFER)204 (Given - Provider: Gerald Vanessa RN) 0919 (Given - Provider: Andreea Singleton RN)1556 (Given - Provider: Andreea Singleton RN) polyethylene glycol (MIRALAX) packet 17 g 17 g, Oral, DAILY PRN, Starting on 12/15/17 at 2100, Until 12/16/17 at 1831, Constipation, Routine 0617 (Given - Provider: Gerald Vanessa RN) sodium chloride 0.9 % flush 5-20 [...] Routine documented in this encounter Care Teams Search Engine Optimization Analyst Relationship Specialty Start Date End Date Trinh Coates MD [facility] [address] [facility] [address] [place] [address] PCP - General 01/11/10 documented as of this encounter
--- OUTSIDE RECORDS SUMMARY | 2023-09-25 11:46 | XMS_ITS | Encounter Summary ---
[place] [address] Care Team Providers Care Supervisory Air Intercept Controller Name Role Phone Trinh Coates MD Primary Care Provider [phone] Encounter Details Date Type Department Care Team (Late st Contact Info) Description 12/14/2017 Telephone Hematology [place] [address] Arpita Culver, RN Social History [...] 01/22/2024 10:30 AM EST Appointment Mammography/[place] [phone] Ladi Mendosa MD [facility] [place] [address] 01/30/2024 11:30 AM EST Office Visit Dermatology at [facility] [address] [place] [phone] Nilda Luis MD [facility] [place] [address] 02/14/2024 7:30 AM EST Appointment Radiology at [place] [phone] Joanna Watts MD [facility] [place] [address] documented as of this encounter Visit Diagnoses Diagnosis History of breast cancer Personal history of malignant neoplasm of breast documented in this encounter Care Teams Supervisory Air Intercept Controller Relationship Specialty Start Date End Date Trinh Coates MD [facility] [address] [place] [address] PCP - General 01/11/10 documented as of this encounter
--- OUTSIDE RECORDS SUMMARY | 2023-09-25 11:46 | XMS_ITS | Encounter Summary ---
Author Organization [facility] Address [facility] [place] [address] Care Team Providers Care Dinkey Operator Slate Name Role Phone Trinh Coates MD Primary Care Provider [phone] Encounter Details Date Type Department Care Team (Late st Contact Info) Description 03/19/2018 Orders [place] [phone] Lakeisha Reza MD [facility] [place] [address] Hypokalemia; Hypertension, unspecified type Social History Tobacco [...] 01/22/2024 10:30 AM EST Appointment Mammography/[place] [phone] Ladi Mendosa MD [facility] DR HEMATOLOGY [place] [address] 01/30/2024 11:30 AM EST Office Visit Dermatology at [address] [place] [address] Nilda Luis MD [facility] [address] 02/14/2024 7:30 AM EST Appointment Radiology at [facility] [place] [phone] Joanna [place] MD [facility] [place] [address] documented as of this encounter Visit Diagnoses Diagnosis Hypokalemia Hypopotassemia Hypertension, unspecified type documented in this encounter Care Teams Dinkey Operator Slate Relationship Specialty Start Date End Date Trinh Coates MD [facility] [address] [place] [address] PCP - General 01/11/10 documented as of this encounter
--- OUTSIDE RECORDS SUMMARY | 2023-09-25 11:46 | XMS_ITS | Encounter Summary ---
Author Organization [facility] Address [facility] [place] [address] Care Team Providers Care Dean Of Women Name Role Phone Trinh Coates MD Primary Care Provider [phone] Reason for Visit * Reason Comments On Treatment Visit Encounter Details Date Type Department Care Team (Late st Contact Info) Description 02/13/2018 10:00 AM EST Office Visit Radiation Oncology at [address] [phone] Emily Choi MD [facility] [place] [address] Malignant neoplasm of upper-outer quadrant [...] DIAGNOSIS: Breast ca, L, IDC, gr 3, ER+ID+, 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 Adjuvant chemo then given, followed by dry pan feeder exchange for implants. CURRENT TREATMENT DOSE: 19.8 [...] For details, see electronic film record in [employer]. Changes in Medical Condition: No change [...] 01/22/2024 10:30 AM EST Appointment Mammography/[place] [address] Ladi Mendosa MD [facility] [place] [address] 01/30/2024 11:30 AM EST Office Visit Dermatology at [address] [phone] Nilda Luis MD [facility] [place] [address] 02/14/2024 7:30 AM EST Appointment [place] [address] Joanna Watts MD [facility] [place] [address] documented as of this encounter Visit Diagnoses Diagnosis Malignant neoplasm of upper-outer quadrant of left female breast, unspecified estrogen receptor status documented in this encounter Care Teams Dean Of Women Relationship Specialty Start Date End Date Trinh Coates MD [address] [place] [address] PCP - General 01/11/10 documented as of this encounter
--- OUTSIDE RECORDS SUMMARY | 2023-09-25 11:46 | XMS_ITS | Encounter Summary ---
Author Organization [facility] Address [facility] [place] [address] Care Team Providers Care Hammerer Name Role Phone Trinh Coates MD Primary Care Provider [phone] Reason for Visit * Reason Comments On Treatment Visit Encounter Details Date Type Department Care Team (Late st Contact Info) Description 02/20/2018 10:30 AM EST Office Visit Radiation Oncology at [address] [phone] Emily Choi MD [facility] [place] [address] Malignant neoplasm of upper-outer quadrant [...] DIAGNOSIS: Breast ca, L, IDC, gr 3, ER+DE+, 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 Adjuvant chemo then given, followed by clinical sciences professor exchange for implants. CURRENT TREATMENT DOSE: 27 [...] For details, see electronic film record in [employer] System. Changes in Medical Condition: New red [...] 01/22/2024 10:30 AM EST Appointment Mammography/DXA at [place] [phone] Ladi Mendosa MD [facility] HEMATOLOGY [place] [address] 01/30/2024 11:30 AM EST Office Visit Dermatology at [address] [phone] Nilda Luis MD [facility] [place] [address] 02/14/2024 7:30 AM EST [place] [phone] Joanna Watts MD [facility] NEUROSURGERY [place], [place] [phone] documented as of this encounter Visit Diagnoses Diagnosis Malignant neoplasm of upper-outer quadrant of left female breast, unspecified estrogen receptor status documented in this encounter Care Teams Hammerer Relationship Specialty Start Date End Date Trinh Coates MD [address] [place] [address] PCP - General 01/11/10 documented as of this encounter
--- OUTSIDE RECORDS SUMMARY | 2023-09-25 11:46 | XMS_ITS | Encounter Summary ---
Author Organization [facility] Address [facility] [place] [address] Care Team Providers Care Physician Ophthalmologist Name Role Phone Trinh Coates MD Primary Care Provider Reason for Visit * Reason Comments Follow Up Surgery f/u josefina salvador Encounter Details Date Type Department Care Team (Late st Contact Info) Description 03/19/2018 10:00 AM EST Office [place] [address] Mali Lakhani MD [facility] [place] [address] S/P breast reconstruction, bilateral Social History Tobacco [...] and closure. Debridement of umbilicus. Deflation of track hoe operator volume, This leaves 450 cc in the left tissue track hoe operator and 500 cc on the right side Date of surgery: 04/26/17 Procedure(s): Bilateral breast reconstruction with attempted SALVADOR flaps, eventual tissue track hoe operator placement with [place] Artoura 600 cc expanders placed bilaterally and [...] 01/22/2024 10:30 AM EST Appointment Mammography/[place] [phone] Ladi Mendosa MD [facility] [address] [place] [address] 01/30/2024 11:30 AM EST Office Visit Dermatology at [address] [place] [phone] Nilda Luis MD [facility] [place] [address] 02/14/2024 7:30 AM EST [place] [phone] Joanna Watts MD [facility] [place] [address] documented as of this encounter Visit Diagnoses Diagnosis S/P breast reconstruction, bilateral Breast replaced by other means documented in this encounter Care Teams Physician Ophthalmologist Relationship Specialty Start Date End Date Trinh Coates MD [facility] [address] [place] [address] PCP - General 01/11/10 documented as of this encounter
--- OUTSIDE RECORDS SUMMARY | 2023-09-25 11:46 | XMS_ITS | Encounter Summary ---
[place] [address] Care Team Providers Care Student Life Vice President Name Role Phone Trinh Coates MD Primary Care Provider [phone] Encounter Details Date Type Department Care Team (Late Contact Info) Description 01/17/2018 Telephone Hematology [place] [phone] Sneha Vo, RN Social History [...] - 01/17/2018 10:25 AM EST Message received: [employer] called- Wendy is asking for a prescription for two more gloves and two more sleeves - [phone] Orders entered, faxed to the above number, confirmation received documented in this encounter Plan of Treatment Upcoming Encounters Date Type Department Care Team (Late Contact Info) Description 01/22/2024 10:30 AM EST Appointment Mammography/[place] [phone] Ladi Mendosa MD [facility] [place] [address] 01/30/2024 11:30 AM EST Office Visit Dermatology at [facility] [address] [place] [phone] Nilda Luis MD [facility] [place] [address] 02/14/2024 7:30 AM EST Appointment [place] [phone] Joanna Watts MD [facility] [place] [address] documented as of this encounter Visit Diagnoses Diagnosis Malignant neoplasm of upper-outer quadrant of left breast in female, estrogen receptor positive documented in this encounter Care Teams Student Life Vice President Relationship Specialty Start Date End Date Trinh Coates MD [facility] [address] [facility] 1 [place] [address] PCP - General 01/11/10 documented as of this encounter
--- OUTSIDE RECORDS SUMMARY | 2023-09-25 11:46 | XMS_ITS | Encounter Summary ---
Author Organization [facility] Address [facility] [place] [address] Care Team Providers Care Political Science Chair Name Role Phone Trinh Coates MD Primary Care Provider [phone] Reason for Visit * Reason Comments On Treatment Visit Encounter Details Date Type Department Care Team (Late st Contact Info) Description 02/05/2018 1:00 PM EST Office Visit Radiation Oncology at [address] [phone] Emily Choi MD [facility] [place] [address] Malignant neoplasm of upper-outer quadrant [...] DIAGNOSIS: Breast ca, L, IDC, gr 3, ER+KS+, 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 Adjuvant chemo then given, followed by gear hobber set up operator exchange for implants. CURRENT TREATMENT DOSE: 10.8 [...] For details, see electronic film record in [employer]. Changes in Medical Condition: Has noticed [...] AM EST Appointment Mammography/DXA at [place] [phone] Ladi Mendosa MD [facility] [place] [address] 01/30/2024 11:30 AM EST Office Visit Dermatology at [address] [phone] Nilda Luis MD [facility] [place] [address] 02/14/2024 7:30 AM EST [place] [phone] Joanna Watts MD [facility] [place] [address] documented as of this encounter Visit Diagnoses Diagnosis Malignant neoplasm of upper-outer quadrant of left female breast, unspecified estrogen receptor status documented in this encounter Care Teams Political Science Chair Relationship Specialty Start Date End Date Trinh Coates MD [address] [place] [address] PCP - General 01/11/10 documented as of this encounter
--- OUTSIDE RECORDS SUMMARY | 2023-09-25 11:46 | XMS_ITS | Encounter Summary ---
Author Organization [facility] Address [facility] [place] [address] Care Team Providers Care Armored Machine Operator Name Role Phone Trinh Coates MD Primary Care Provider [phone] Reason for Referral * Consultation (Routine) - Duplicate Referral Specialty Diagnoses / Procedures Referred By Diamante marin Referred To Contact Radiation Oncology Diagnoses Malignant neoplasm of upper-outer quadrant of left female breast, unspecified estrogen receptor status Procedures Simulation for Radiation Therapy Planning Emily Choi MD [facility] [place] [address] St Rad Onc Office [address] [place] [phone] Referral ID Status Reason Start Date Expiration Date Visits Requested Visits Authorized [id number] Duplicate Referral Consult, Test & Treat 8 01/01/2019 1 1 Encounter Details Date Type Department Care Team (Late st Contact Info) Description 01/01/2018 Orders Only Radiation Oncology at [address] [phone] Emily Choi MD [facility] [place] [address] Malignant neoplasm of upper-outer quadrant of left [...] 01/22/2024 10:30 AM EST Appointment Mammography/DXA at [place] [phone] Ladi Mendosa MD [facility] H[place]AT[place] [address] 01/30/2024 11:30 AM EST Office Visit Dermatology at [address] [place] [address] Nilda Luis MD [facility] [place] [address] 02/14/2024 7:30 AM EST Appointment Radiology at [place] [phone] Joanna Watts MD [facility] [place] [address] Scheduled Orders Name Type Priority Associated Diagnoses Orde r Schedule Simulation for Radiation Therapy Planning Procedures Routine Malignant neoplasm of upper-outer quadrant of left female breast, unspecified estrogen receptor status Ordered: 01/01/2018 documented as of this encounter Visit Diagnoses Diagnosis Malignant neoplasm of upper-outer quadrant of left female breast, unspecified estrogen receptor status documented in this encounter Care Teams Armored Machine Operator Relationship Specialty Start Date End Date Trinh Coates MD [address] [place] [address] PCP - General 01/11/10 documented as of this encounter
--- OUTSIDE RECORDS SUMMARY | 2023-09-25 11:46 | XMS_ITS | Encounter Summary ---
Author Organization [facility] Address [facility] [place] [address] Care Team Providers Care Associate Professor Of Chemistry Name Role Phone Trinh Coates MD Primary Care Provider [phone] Reason for Visit * Reason Comments On Treatment Visit Encounter Details Date Type Department Care Team (Late st Contact Info) Description 02/26/2018 10:00 AM EST Office Visit Radiation Oncology at [address] [phone] Emily Choi MD [facility] [place] [address] Malignant neoplasm of upper-outer quadrant [...] DIAGNOSIS: Breast ca, L, IDC, gr 3, ER+MD+, 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 Adjuvant chemo then given, followed by v block saw operator exchange for implants. CURRENT TREATMENT DOSE: 34.2 [...] For details, see electronic film record in [employer]. Changes in Medical Condition: No [...] 01/22/2024 10:30 AM EST Appointment Mammography/DXA at [place] [phone] Ladi Mendosa MD [facility] [place] [address] 01/30/2024 11:30 AM EST Office Visit Dermatology at [address] [phone] Nilda Luis MD [facility] [place] [address] 02/14/2024 7:30 AM EST App[place] [address] Joanna Watts MD [facility] [place] [address] documented as of this encounter Visit Diagnoses Diagnosis Malignant neoplasm of upper-outer quadrant of left female breast, unspecified estrogen receptor status documented in this encounter Care Teams Associate Professor Of Chemistry Relationship Specialty Start Date End Date Trinh Coates MD [address] [place] [address] PCP - General 01/11/10 documented as of this encounter
--- OUTSIDE RECORDS SUMMARY | 2023-09-25 11:46 | XMS_ITS | Encounter Summary ---
Author Organization [facility] Address [facility] [place] [address] Care Team Providers Care Director Of Architecture Name Role Phone Trinh Coates MD Primary Care Provider [phone] Reason for Visit * Consultation (Routine) - Duplicate Referral Specialty Diagnoses / Procedures Referred By Diamante marin Referred To Contact Radiation Oncology Diagnoses Malignant neoplasm of upper-outer quadrant of left female breast, unspecified estrogen receptor status Procedures Simulation for Radiation Therapy Planning Emily Choi MD [facility] [place] [address] [facility] Rad Onc Office [address] [place] [phone] Referral ID Status Reason Start Date Expiration Date Visits Requested Visits Authorized [id number] Duplicate Referral Consult, Test & Treat 8 01/01/2019 1 1 Encounter Details Date Type Department Care Team (Latest Contact Info) Description 01/16/2018 10:00 AM EST Ancillary Appointment Radiation Oncology at [address] [phone] Emily Choi MD [facility] [place] [address] Malignant neoplasm of upper-outer quadrant of left [...] for sim. 11/15/17 chemo completed. 12/12/17 B transcriber replacement w/implants. 2 drains placed each side. 12/25/17 fu w/[facility] [employer]; resume PT for lymphedema. 01/02/18 fu w/[facility] [employer] [employer]; drains removed; rtc after xrt. Sim: [...] 01/22/2024 10:30 AM EST Appointment Mammography/[place] [address] Ladi Mendosa MD [facility] DR [place] [address] 01/30/2024 11:30 AM EST Office Visit Dermatology at [facility] [address] [place] [phone] Nilda Luis MD [facility] [place] [address] 02/14/2024 7:30 AM [place] [address] Joanna Watts MD [facility] [place] [address] documented as of this encounter Visit Diagnoses Diagnosis Malignant neoplasm of upper-outer quadrant of left female breast, unspecified estrogen receptor status documented in this encounter Care Teams Director Of Architecture Relationship Specialty Start Date End Date Trinh Coates MD [facility] [address] [address] PCP - General 01/11/10 documented as of this encounter
--- OUTSIDE RECORDS SUMMARY | 2023-09-25 11:46 | XMS_ITS | Encounter Summary ---
[place] [address] Care Team Providers Care Health And Fitness Instructor Name Role Phone Trinh Coates MD Primary Care Provider [phone] Encounter Details Date Type Department Care Team (Late st Contact Info) Description 04/24/2018 Telephone [place] [address] Lakeisha Reza MD [facility] [place] [address] Social History Tobacco Use Types Packs/Day Years [...] message. Lakeisha Reza PGY 4 Endocrinology Pager [phone] documented in this encounter Plan of Treatment Upcoming Encounters Date Type Department Care Team (Late st Contact Info) Description 01/22/2024 10:30 AM EST Appointment Mammography/[place] [address] Ladi Mendosa MD [facility] [place] [address] 01/30/2024 11:30 AM EST Office Visit Dermatology at [facility] [address] [place] [phone] Nilda Luis MD [facility] [place] [address] 02/14/2024 7:30 AM EST Appointment Radiology at [place] [phone] Joanna Watts MD [facility] [place] [address] documented as of this encounter Visit Diagnoses Not on filedocumented in this encounter Care Teams Health And Fitness Instructor Relationship Specialty Start Date End Date Trinh Coates MD [facility] [address] [place] [address] PCP - General 01/11/10 documented as of this encounter
--- OUTSIDE RECORDS SUMMARY | 2023-09-25 11:46 | XMS_ITS | Encounter Summary ---
Author Organization [facility] Address [facility] [place] [address] Care Team Providers Care Classifier Operator Name Role Phone Trinh Coates MD Primary Care Provider [phone] Reason for Visit * Reason Comments On Treatment Visit Encounter Details Date Type Department Care Team (Late st Contact Info) Description 03/05/2018 10:00 AM EST Office Visit Radiation Oncology at [address] [phone] Puneet Choi [address] 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 Adjuvant chemo then given, followed by permit agent exchange for implants. CURRENT TREATMENT DOSE: 43.2 [...] AM EST Appointment Mammography/DXA at [place] [phone] Ladi Mendosa MD [facility] HEMATOLOGY [place] [address] 01/30/2024 11:30 AM EST Office Visit Dermatology at [address] [phone] Nilda Luis MD [facility] [place] [address] 02/14/2024 7:30 AM EST [place] [phone] Joanna Watts MD [facility] [place] [address] documented as of this encounter Visit Diagnoses Diagnosis Malignant neoplasm of upper-outer quadrant of left female breast, unspecified estrogen receptor status documented in this encounter Care Teams Classifier Operator Relationship Specialty Start Date End Date Trinh Coates MD [address] [place] [address] PCP - General 01/11/10 documented as of this encounter
--- OUTSIDE RECORDS SUMMARY | 2023-09-25 11:47 | XMS_ITS | Encounter Summary ---
Author Organization [facility] Address [facility] [place] [address] Care Team Providers Care Locator Specialist Name Role Phone Trinh Coates MD Primary Care Provider [phone] Encounter Details Date Type Department Care Team (Late st Contact Info) Description 10/24/2017 Telephone Hematology [place] [address] Jonathan Brown MD [facility] DR HEMATOLOGY/[place] [address] Social History Tobacco Use Types Packs/Day Years [...] 01/22/2024 10:30 AM EST Appointment Mammography[place] [phone] Ladi Mendosa MD [facility] [place] [address] 01/30/2024 11:30 AM EST Office Visit Dermatology at [address] [place] [phone] Nilda Luis MD [facility] [place] [address] 02/14/2024 7:30 AM EST [place] [address] Joanna Watts MD [facility] [place] [address] documented as of this encounter Visit Diagnoses Not on filedocumented in this encounter Care Teams Locator Specialist Relationship Specialty Start Date End Date Trinh Coates MD [facility] [address] [place] [address] PCP - General 01/11/10 documented as of this encounter
--- OUTSIDE RECORDS SUMMARY | 2023-09-25 11:47 | XMS_ITS | Encounter Summary ---
Author Organization [facility] [place] [address] Care Team Providers Care Finishing Inspector Name Role Phone Trinh Coates MD Primary Care Provider [phone] Reason for Referral * Diagnostic Test (Routine) - Closed Specialty Diagnoses / Procedures Referred By Contac t Referred To Contact Radiology Diagnoses Malignant neoplasm of left female breast, unspecified estrogen receptor status, unspecified site of breast Procedures IR Drain Check/Change/Remove Doreen Mcgovern MD [facility] [place] [address] [place] [address] Referral ID Status Reason Start Date Expiration Date V isits Requested Visits Authorized [id number] Closed Specialty Service Requested 11/16/2017 11/16/2018 1 1 Reason for Visit * Diagnostic Test (Routine) - Closed Specialty Diagnoses / Procedures Referred By Contac t Referred To Contact Radiology Diagnoses Malignant neoplasm of left female breast, unspecified estrogen receptor status, unspecified site of breast Procedures IR Drain Check/Change/Remove Doreen Mcgovern MD [facility] [place] [address] [place] [address] Referral ID Status Reason Start Date Expiration Date V isits Requested Visits Authorized [id number] Closed Specialty Service Requested 11/16/2017 11/16/2018 1 1 Encounter Details Date Type Department Care Team (Latest Contact Info) Description 11/20/2017 9:46 AM EDT - 11/20/2017 11:59 PM EDT Hospital [place] [address] Marcos Dey MD [facility] [place] [address] Malignant neoplasm of left female breast, unspecified [...] is during regular office hours, please call [phone]. If it is after regular office hours, or on weekends or holidays, please call [phone] and ask to speak to the Recoil [place] Winder suction operator for Interventional Radiology. XX You have received [...] 4 hours if needed 0 10/08/2017 11/30/2017 potassium chloride 20 mEq Tablet Sustained Release 1 tablet daily. 0 09/17/2017 07/12/2020 promethazine (PHENERGAN) 25 mg Tablet take 1 [...] by mouth daily. 30 tablet 05/01/2017 12/12/2017 atorvastatin (LIPITOR) 20 mg Tablet Take 1 [...] of left breast in female, estrogen receptor [id number], Z17.0 ??? S/P breast reconstruction, bilateral Z98.890 [...] LARYNGEAL performed by Valentina Lucas MD at [facility] OR ??? PRO BREAST RECONSTRUC W FREE FLAP Bilateral 04/26/2017 @BREAST RECONSTRUCTION W/ FREE FLAP, SUSAN (WRVU 42.58) performed by Andre Gimenez MD at [facility] ??? PRO BREAST RECONSTRUC W TISS EXPANDR Bilateral 04/26/2017 BREAST RECONSTRUCTION, IMMEDIATE OR DELAYED, W/ TISSUE FITNESS TEACHER, INCLUDING SUBSEQUENT EXPANSION (WRVU 18.5) performed by [...] 7.26) performed by Andre Gimenez MD at [facility] OR ??? PRO REMOVE ARMPITS LYMPH NODES COMPLT Left 04/26/2017 LYMPHADENECTOMY, AXILLARY, COMPLETE (WRVU 13.87) performed by Jolie Menendez MD at [facility] OR ??? PRO REVISE BREAST RECONSTRUCTION Left 06/22/2017 REVISION OF RECONSTRUCTED BREAST (WRVU 10.41) performed by Andre Gimenez MD at [facility] OR ??? PRO THYMECTOMY, TRANSCERVICAL N/A 11/02/2015 THYMECTOMY, TRANSCERVICAL APPROACH performed by Valentina Lucas MD at [facility] OR ??? SHOULDER SURGERY [...] of : 1965 AGE 52 y.o. Address: [address] [place] [phone] (home) [phone] (work) Mobile: Telephone Information: Referring Provider: Doreen Mcgovern REASON FOR VISIT: Order Questions Question Answer Comment Where will study be performed? [facility] Reason for exam and clinical history: [...] of left breast in female, estrogen receptor [id number], Z17.0 ??? S/P breast reconstruction, bilateral Z98.890 [...] [facility] PRO BREAST RECONSTRUC W TISS EXPANDR Bilateral 04/26/2017 BREAST RECONSTRUCTION, IMMEDIATE OR DELAYED, W/ TISSUE FITNESS TEACHER, INCLUDING SUBSEQUENT EXPANSION (WRVU 18.5) performed by [...] 7.26) performed by Andre Gimenez MD at [facility] OR ??? PRO REMOVE ARMPITS LYMPH NODES COMPLT Left 04/26/2017 LYMPHADENECTOMY, AXILLARY, COMPLETE (WRVU 13.87) performed by Jolie Menendez MD at [facility] OR ??? PRO REVISE BREAST RECONSTRUCTION Left 06/22/2017 REVISION OF RECONSTRUCTED BREAST (WRVU 10.41) performed by Andre Gimenez MD at [facility] OR ??? PRO THYMECTOMY, TRANSCERVICAL N/A 11/02/2015 THYMECTOMY, TRANSCERVICAL APPROACH performed by Valentina Lucas MD at [facility] OR ??? SHOULDER SURGERY [...] R drain removed. Fentanyl 50 mcg IV? [id number] Left breast aspiration/ 30 ml Fentanyl 100 [...] 1 tablet by mouth daily. 11/15/17 Sally eRn APRN dexamethasone (DECADRON) 4 mg Tablet Take [...] 01/22/2024 10:30 AM EST Appointment Mammography/[place] [address] Ladi Mendosa MD [facility] [place] [address] 01/30/2024 11:30 AM EST Office Visit Dermatology at [address] [place] [phone] Nilda Luis MD [facility] [place] [address] 02/14/2024 7:30 AM EST Appointment Radiology at [facility] [place] [phone] Joanna Watts MD [facility] [place] [address] documented as of this encounter Procedures Procedure [...] within residual collection adjacent to left breast white lead filterer. Recommend: continue drain to bulb suction. ??Flush [...] breast documented in this encounter Care Teams Finishing Inspector Relationship Specialty Start Date End Date Trinh Coates MD [address] [place] [address] PCP - General 01/11/10 documented as of this encounter
--- OUTSIDE RECORDS SUMMARY | 2023-09-25 11:47 | XMS_ITS | Encounter Summary ---
Author Organization [facility] Address [facility] [place] [address] Care Team Providers Care Electromechanic Name Role Phone Trinh Coates MD Primary Care Provider [phone] Encounter Details Date Type Department Care Team (Latest Contact Info) Description 11/30/2017 10:55 AM EDT Laboratory Appointment Lab [address] [place] [phone] Malignant neoplasm of upper-outer quadrant of left [...] AM EST Appointment Mammography/[place] [phone] Ladi Mendosa MD [facility] DR [place] [address] 01/30/2024 11:30 AM EST Office Visit Dermatology at [facility] [address] [place] [phone] Nilda Luis MD [facility] [place] [address] 02/14/2024 7:30 AM EST Appointment [place] [phone] Joanna Watts MD [facility] [place] [address] documented as of this encounter Procedures Procedure [...] Results * APTT (11/30/2017 10:29 AM EDT) Partial Thromboplastin Time 33 25 - 37 sec [facility] Comment: The PTT is NOT appropriate for heparin monitoring. Use the Anti-Xa level for heparin monitoring (HEP UFH) or LMWH monitoring (HEP LMW). A PTT less than 37 seconds generally indicates adequate hemostasis. Blood specimen (specimen) 11/30/2017 10:29 AM EDT 11/30/2017 10:45 AM EDT Narrative Resulting Agency Comment Spec In Lab Jolene Azevedo APRN HEMATOLOGY ORDERABLE S [facility] [place] [address] * Prothrombin Time (11/30/2017 10:29 AM EDT) Prothrombin Time 12.3 9.4 - 12.5 sec [facility] International Normalization Ratio 1.1 [facility] Comment: An INR <2.0 indicates [...] APRN HEMATOLOGY ORDERABLE S Performing Organization Address City/State/[facility] Co de Phone Number [facility] [place] [address] documented in this encounter Visit Diagnoses Diagnosis Malignant neoplasm of upper-outer quadrant of left breast in female, estrogen receptor positive documented in this encounter Care Teams Electromechanic Relationship Specialty Start Date End Date Trinh Coates MD [address] [place] [address] PCP - General 01/11/10 documented as of this encounter
--- OUTSIDE RECORDS SUMMARY | 2023-09-25 11:47 | XMS_ITS | Encounter Summary ---
Author Organization [facility] [place] [address] Care Team Providers Care Phototypesetting Equipment Monitor Name Role Phone Trinh Coates MD Primary Care Provider [phone] Reason for Visit * Treatment/Therapy Plan Authorization (Routine) - Closed Specialty Diagnoses / Procedures Referred By Diamante marin Referred To Contact Diagnoses Malignant neoplasm of upper-outer quadrant of left breast in female, estrogen receptor positive Procedures TC PACLITAXEL, 1MG, INJ TC PEGFILGRASTIM, 6MG, INJECTION Josias Barnett MD [facility] DR HEMATOLOGY/[place] [address] [facility] Onc [address] [place] [address] Referral ID Status Reason Start Date Expiration Date Visits Re quested Visits Authorized [id number] Closed 10/01/2017 10/01/2018 21 21 Encounter Details Date Type Department Care Team (Latest Contact Info) Description 11/01/2017 10:00 AM EDT - 11/01/2017 10:16 AM EDT Hospital Encounter [place]ematology [place] [address] Malignant neoplasm of upper-outer quadrant [...] 01/22/2024 10:30 AM EST Appointment Mammography/[place] [address] Ladi Mendosa MD [facility] HEMATOLOGY [place] [address] 01/30/2024 11:30 AM EST Office Visit Dermatology at [address] [place] [address] Nilda Luis MD [facility] [place] [address] 02/14/2024 7:30 AM EST Appointment Radiology at [address] [place] [phone] Joanna Watts MD [facility] [place] [address] documented as of this encounter Procedures Procedure [...] female, estrogen receptor positive COMPREHENSIVE METABOLIC PANEL STAT 11/01/2017 10:30 AM EDT Malignant neoplasm of upper-outer quadrant of left breast in female, estrogen receptor positive documented in this encounter Results * (ABNORMAL) Differential, Automated (11/01/2017 10:30 AM EDT) Neutrophil % 69.4 % [facility] Neutrophil Absolute 7.00(H) 1.70 - 6.10 x10(3)/mc L [facility] Lymph % 8.6 % [facility] Lymphocytes Abs 0.9 0.9 - 3.2 x10(3)/mc L [facility] Monocyte % 12.7 % [facility] Monocyte Abs 1.3(H) 0.3 - 0.9 x10(3)/mc L [facility] Eos % 7.9 % [facility] Eosinophils Abs 0.8(H) 0.0 - 0.4 x10(3)/[facility] Basophil % 0.7 % [facility] Baso Absolute 0.1 0.0 - 0.1 x10(3)/[facility] Immature Gran % 0.70 % [facility] Comment: Immature granulocytes(IG's)percentage and absolute count will include metamyelocytes, myelocytes, and promyelocytes. Blood smears from CBCs yielding IG's will be scanned manually for concordance. If this scan disagrees with the automated IG or if promyelocytes are noted, a manual differential will be performed. Immature Gran Absolute 0.07(H) 0.00 - 0.04 x10(3)/[facility] Blood specimen (specimen) 11/01/2017 10:30 AM EDT 11/01/2017 11:03 AM EDT Narrative Resulting Agency Comment Spec In Lab Josias Barnett MD HEMATOLOGY ORDERABLE S [facility] [place] [address] * (ABNORMAL) Hemogram (11/01/2017 10:30 AM EDT) White Blood Cell 10.1(H) 4.0 - 9.5 x10(3)/[facility] Red Blood Cell 3.01(L) 4.00 - 5.21 x10(6)/[facility] Hemoglobin 9.6(L) 11.7 - 15.5 gm/dL [facility] Hematocrit 29.6(L) 35.7 - 45.8 % [facility] Mean Cell Volume 98.3(H) 82.6 - 94.4 fL [facility] Mean Cell Hemoglobin 31.9 27.1 - 32.0 pg [facility] Mean Cell Hemoglobin Concentration 32.4 31.7 - 35.0 gm/dL [facility] Platelet 359(H) 145 - 357 x10(3)/mc L [facility] RDW Standard Deviation 64.3(H) 37.0 - 46.0 fL [facility] RDW coefficient of variation 17.7(H) 11.5 - 14.1 % [facility] Mean Platelet Volume 9.0 7.6 - 12.9 fL [facility] NRBC% auto 0.0 % [facility] NRBC Absolute 0.000 0.000 - 0.000 x10(3)/mc L [facility] Blood specimen (specimen) 11/01/2017 10:30 AM EDT 11/01/2017 11:03 AM EDT Narrative Resulting Agency Comment Spec In Lab Josias Barnett MD HEMATOLOGY ORDERABLE S [facility] [place] [address] * Comprehensive metabolic panel (non-fasting) (11/01/2017 10:30 AM EDT) Glucose 131 65 - 199 mg/dL [facility] Comment:Diabetes: >=200 mg/d L plus symptoms Blood Urea Nitrogen 16 8 - 18 mg/dL [facility] Creatinine 0.89 0.70 - 1.20 mg/dL [facility] Sodium 140 135 - 145 mmol/L [facility] Potassium 3.7 3.5 - 5.0 mmol/L [facility] Comment: Please note: ??Patients with WBC >100,000 may have falsely elevated Potassium levels. ??For accurate Potassium quantification in these patients send serum separator tube (gold top) for subsequent determinations. ??Contact the Clinical Chemistry Laboratory if there are any questions. Chloride 101 98 - 107 mmol/L [facility] Carbon Dioxide 25 22 - 31 mmol/L [facility] Anion Gap 14 5 - 15 mmol/L [facility] Calcium 9.3 8.5 - 10.5 mg/dL [facility] Protein, Total 6.4 6.1 - 8.0 gm/dL [facility] Albumin 3.5 3.2 - 5.2 gm/dL [facility] Aspartate Aminotransferase 15 0 - 30 unit/L [facility] Alanine Aminotransferase 27 0 - 30 unit/L [facility] Alkaline Phosphatase 86 40 - 104 unit/L [facility] Bilirubin, Total 0.5 0.2 - 1.3 mg/dL [facility] Est Glomerular Filtration Rate 73 >=60 mL/min/1. 73 m?? [facility] Comment: The eGFR was calculated using the CKD-EPI equation. As with all creatinine based estimates of kidney function, eGFR values calculated with the CKD-EPI equation are not accurate in patients with acute kidney failure, extremes of body mass or the acutely ill. [email or web address]-in/[email or web address] eGFR 85 >=60 mL/min/1. 73 m?? [facility] Comment: The eGFR was calculated using the CKD-EPI equation. As with all creatinine based estimates of kidney function, eGFR values calculated with the CKD-EPI equation are not accurate in patients with acute kidney failure, extremes of body mass or the acutely ill. [email or web address]-[email or web address] Blood specimen (specimen) 11/01/2017 10:30 AM EDT 11/01/2017 11:03 AM EDT Narrative Resulting Agency Comment Spec In Lab Josias Barnett MD CHEMISTRY ORDERABLES [facility] [place] [address] documented in this encounter Visit Diagnoses Diagnosis Malignant neoplasm of upper-outer quadrant of left breast in female, estrogen receptor positive documented in this encounter Administered Medications Inactive Administered Medications - up to 3 most recent administrations Medication Order MAR Action Action Date Dose Rate Site sodium chloride 0.9 % flush 5-20 mL 5-20 mL, Intravenous, EVERY 1 MIN PRN, Starting on Sun11/01/17 at 1022, Until 9/14/18 at 0442, Line Care, Flush pertains to all indwelling lines. Flush per protocol found in the job aid using the link provided on this medication record. Refer to Intravenous (IV) Job Aid: Adult Flushing & Catheter Care (3435) job aid for additional information regarding guidelines and administration., Routine Given 11/01/2017 10:35 AM EDT 20 mLs documented in this encounter Care Teams Phototypesetting Equipment Monitor Relationship Specialty Start Date End Date Trinh Coates MD [facility] [address] [address] [place] [address] PCP - General 01/11/10 documented as of this encounter
--- OUTSIDE RECORDS SUMMARY | 2023-09-25 11:47 | XMS_ITS | Encounter Summary ---
Author Organization [facility] [place] [address] Care Team Providers Care Automotive Paint Technician Name Role Phone Trinh Coates MD Primary Care Provider [phone] Reason for Referral * Diagnostic Test (Routine) - Closed Specialty Diagnoses / Procedures Referred By Diamante marin Referred To Contact Radiology Diagnoses Malignant neoplasm of left female breast, unspecified estrogen receptor status, unspecified site of breast Procedures IR Drain Check/Change/Remove Doreen Mcgovern MD [facility] [place] [address] [place] [address] Referral ID Status Reason Start Date Expiration Date V isits Requested Visits Authorized [id number] Closed Specialty Service Requested 11/16/2017 11/16/2018 1 1 Encounter Details Date Type Department Care Team (Late st Contact Info) Description 11/16/2017 Orders [place] [address] Doreen Mcgovern MD [facility] [place] [address] Malignant neoplasm of left female [...] 01/22/2024 10:30 AM EST Appointment Mammography/[place] [phone] Ladi Mendosa MD [facility] [place] [address] 01/30/2024 11:30 AM EST Office Visit Dermatology at [place] [address] [place] [phone] Nilda Luis MD [facility] [place] [address] 02/14/2024 7:30 AM EST Appointment Radiology at [place] [phone] Joanna Watts MD [facility] [place] [address] documented as of this encounter Results * IR Drain Check/Change/Remove (11/20/2017 10:58 AM EDT) Anatomical Region Laterality Modality Head X-Ray Angiograph y Impressions 12/27/2017 3:40 PM EST : ?? Drain within residual collection adjacent to left breast offal roller. Recommend: continue drain to bulb suction. ??Flush [...] breast documented in this encounter Care Teams Automotive Paint Technician Relationship Specialty Start Date End Date Trinh Coates MD [address] [place] [address] PCP - General 01/11/10 documented as of this encounter
--- OUTSIDE RECORDS SUMMARY | 2023-09-25 11:47 | XMS_ITS | Encounter Summary ---
Author Organization [facility] Address [facility] [place] [address] Care Team Providers Care Director Industrial Museum Name Role Phone Trinh Coates MD Primary Care Provider [phone] Reason for Visit * Reason Comments Genetic Evaluation recent dx of breast cancer and fam hx of breast and other cancers * Consultation (Routine) - Closed Specialty Diagnoses / Procedures Referred By Diamante marin Referred To Contact Hematology and Oncology Diagnoses Malignant neoplasm of upper-outer quadrant of left breast in female, estrogen receptor positive Sally Ren, AARTI [facility] [place] [address] [facility] Hem Onc Office [address] [place] [phone] Referral ID Status Reason Start Date Expiration Date V isits Requested Visits Authorized [id number] Closed Consult, Test & Treat 05/30/2017 05/30/2018 1 1 Encounter Details Date Type Department Care Team (Late st Contact Info) Description 10/31/2017 1:00 PM EDT Office Visit Hematology/Oncolog y at [address] [address] Corine Barron LGC [facility] HEMATOLOGY/[place] [address] Malignant neoplasm of left breast [...] Sandoval was seen by Cindy Barron [facility] in consultation at the request of Dr. [...] node positive, left breast cancer.??Her tumor was ER/AZ positive, HER-2/pat negative. ?? She was treated with bilateral mastectomy and SALVADOR reconstruction. She is currently undergoing adjuvant chemotherapy. Age at 1st menses: 10 Age at 1st child: 26 Menopause status: Perimenopausal with last menstrual cycle in April of 2017. Oral contraceptive use: In the past, for a total of over 10 years. Hormone replacement therapy use: In the past from 5755-0058 (Progestin). Family History of Cancer Problem Relation [...] (grandmother's mother) 57 Maternal ethnic background is [place]ian. Paternal ethnic background is unknown. Genetic risk [...] genetic testing. Wendy opted for testing with [facility] Common Hereditary Cancers Panel, a next generation sequencing panel that simultaneously analyzes 46 genes, including BRCA1 and BRCA2,that contribute to increased risk for cancer, including breast, colon and ovarian. Wendy was consented. Her blood sample was drawn and sent to [facility]. Testing will take approximately 3 weeks. Wendy [...] 01/22/2024 10:30 AM EST Appointment Mammography/[place] [address] Ladi Mendosa MD [facility] [place]AT[place] [address] 01/30/2024 11:30 AM EST Office Visit Dermatology at [facility] [address] [place] [address] Nilda Luis MD [facility] [place] [address] 02/14/2024 7:30 AM EST [place] [phone] Joanna Watts MD [facility] [place] [address] Scheduled Referrals Name Type Priority Associated Diagnoses [...] tract documented in this encounter Care Teams Director Industrial Museum Relationship Specialty Start Date End Date Trinh Coates MD [facility] [address] [place] [address] PCP - General 01/11/10 documented as of this encounter
--- OUTSIDE RECORDS SUMMARY | 2023-09-25 11:47 | XMS_ITS | Encounter Summary ---
Author Organization [facility] Address [facility] [place] [address] Care Team Providers Care Silk Conditioner Name Role Phone Trinh Coates MD Primary Care Provider [phone] Encounter Details Date Type Department Care Team (Late st Contact Info) Description 11/16/2017 Orders [place] [phone] Jolene Azevedo APRN [facility] [place] [address] Social History Tobacco Use Types Packs/Day Years [...] 01/22/2024 10:30 AM EST Appointment Mammography/[place] [phone] Ladi Mendosa MD [facility] [address] [place] [address] 01/30/2024 11:30 AM EST Office Visit Dermatology at [facility] [address] [place] [address] Nilda Luis MD [facility] [place] [address] 02/14/2024 7:30 AM EST [place] [phone] Joanna aWtts MD [facility] [place] [address] documented as of this encounter Visit Diagnoses Not on filedocumented in this encounter Care Teams Silk Conditioner Relationship Specialty Start Date End Date Trinh Coates MD [facility] [address] [place] [address] PCP - General 01/11/10 documented as of this encounter
--- OUTSIDE RECORDS SUMMARY | 2023-09-25 11:47 | XMS_ITS | Encounter Summary ---
Author Organization [facility] [place] [address] Care Team Providers Care Rags Laborer Name Role Phone Trinh Coates MD Primary Care Provider [phone] Reason for Visit * Reason Comments Breast Cancer Chemotherapy * Treatment/Therapy Plan Authorization (Routine) - Closed Specialty Diagnoses / Procedures Referred By Diamante marin Referred To Contact Diagnoses Malignant neoplasm of upper-outer quadrant of left breast in female, estrogen receptor positive Procedures TC PACLITAXEL, 1MG, INJ TC PEGFILGRASTIM, 6MG, INJECTION Josias Barnett MD [facility] DR HEMATOLOGY/[place] [address] [facility] Hem Onc [address] [place] [address] Referral ID Status Reason Start Date Expiration Date Visits Re quested Visits Authorized [id number] Closed 10/01/2017 10/01/2018 21 21 Encounter Details Date Type Department Care Team (Latest Contact Info) Description 11/15/2017 10:06 AM EDT - 11/15/2017 11:59 PM EDT Hospital Encounter [place]ology [place] [address] Malignant neoplasm of upper-outer quadrant [...] 01/22/2024 10:30 AM EST Appointment Mammography/DXA at [place] [phone] Ladi Mendosa MD [facility] [place] [address] 01/30/2024 11:30 AM EST Office Visit Dermatology at [address] [address] Nilda Luis MD [facility] [place] [address] 02/14/2024 7:30 AM EST [place] [address] Joanna Watts MD [facility] [place] [address] documented as of this encounter Results * (ABNORMAL) Comprehensive metabolic panel (non-fasting) (11/15/2017 10:45 AM EDT) Glucose 108 65 - 199 mg/dL [facility] Comment:Diabetes: >=200 mg/d L plus symptoms Blood Urea Nitrogen 13 8 - 18 mg/dL [facility] Creatinine 0.88 0.70 - 1.20 mg/dL [facility] Sodium 143 135 - 145 mmol/L [facility] Potassium 3.6 3.5 - 5.0 mmol/L [facility] Comment: Please note: ??Patients with WBC >100,000 may have falsely elevated Potassium levels. ??For accurate Potassium quantification in these patients send serum separator tube ([facility] top) for subsequent determinations. ??Contact the Clinical Chemistry Laboratory if there are any questions. Chloride 105 98 - 107 mmol/L [facility] Carbon Dioxide 23 22 - 31 mmol/L [facility] Anion Gap 15 5 - 15 mmol/L [facility] Calcium 8.5 8.5 - 10.5 mg/dL [facility] Protein, Total 6.7 6.1 - 8.0 gm/dL [facility] Albumin 3.9 3.2 - 5.2 gm/dL [facility] Aspartate Aminotransferase 19 0 - 30 unit/L [facility] Alanine Aminotransferase 28 0 - 30 unit/L [facility] Alkaline Phosphatase 111(H) 40 - 104 unit/L [facility] Bilirubin, Total 0.3 0.2 - 1.3 mg/dL [facility] Est Glomerular Filtration Rate 74 >=60 mL/min/1. 73 m?? [facility] Comment: The eGFR was calculated using the CKD-EPI equation. As with all creatinine based estimates of kidney function, eGFR values calculated with the CKD-EPI equation are not accurate in patients with acute kidney failure, extremes of body mass or the acutely ill. [email or web address] eGFR 86 >=60 mL/min/1. 73 m?? [facility] Comment: The eGFR was calculated using the CKD-EPI equation. As with all creatinine based estimates of kidney function, eGFR values calculated with the CKD-EPI equation are not accurate in patients with acute kidney failure, extremes of body mass or the acutely ill. [email or web address] Blood specimen (specimen) 11/15/2017 10:45 AM EDT 11/15/2017 11:32 AM EDT Narrative Resulting Agency Comment Spec In Lab Josias Barnett MD CHEMISTRY ORDERABLES [facility] [place] [address] documented in this encounter Visit Diagnoses Diagnosis [...] (IV) Procedure: Accessing Implanted Vascular Access Devices (894) procedure and/or Intravenous (IV) Job Aid: Adult Flushing & Catheter Care (9210) job aid for additional information regarding guidelines [...] Job Aid: Adult Flushing & Catheter Care (6534) job aid for additional information regarding guidelines and administration., Routine Given 11/15/2017 5:01 PM EDT 20 mLs documented in this encounter Care Teams Rags Laborer Relationship Specialty Start Date End Date Trinh Coates MD [address] [place] [address] PCP - General 01/11/10 documented as of this encounter
--- OUTSIDE RECORDS SUMMARY | 2023-09-25 11:47 | XMS_ITS | Encounter Summary ---
Author Organization [facility] Address [facility] [place] [address] Care Team Providers Care Rn Radiology Name Role Phone Trinh Coates MD Primary Care Provider [phone] Encounter Details Date Type Department Care Team (Late st Contact Info) Description 10/18/2017 9:00 AM EDT Office Visit Hematology [place] [address] Sally Ren APRN [facility] [place] [address] Malignant neoplasm of upper-outer quadrant of left [...] this encounter Progress Notes * Sally Ren, DESILVERIZER - 10/18/2017 9:00 AM EDT Subjective: Patient [...] was unremarkable. Core biopsy demonstrated invasive cancer, ER/ME positive, HER- 2/pat negative. Breast MRI demonstrated [...] left chest. No axillary adenopathy bilaterally. Left reconstruction/research clerk larger than right. Abdominal: Soft. Bowel sounds [...] Wendy Sandoval is a 52 y.o. with ER/ME positive, HER-2/pat negative left breast cancer. She is s/p bilateral MRM with attempted SALVADOR flap reconstruction. This failed and she has expanders in place. This was complicated by delayed wound healing and infection. She has developed a fairly large seroma behind her left breast research clerk. Drain remains in place and she is [...] 01/22/2024 10:30 AM EST Appointment Mammography/[place] [phone] Ladi Mendosa MD [facility] [place] [address] 01/30/2024 11:30 AM EST Office Visit Dermatology at [address] [phone] Nilda Luis MD [facility] [place] [address] 02/14/2024 7:30 AM EST [place] [phone] Joanna Watts MD [facility] [place] [address] documented as of this encounter Visit Diagnoses Diagnosis Malignant neoplasm of upper-outer quadrant of left breast in female, estrogen receptor positive documented in this encounter Care Teams Rn Radiology Relationship Specialty Start Date End Date Trinh Coates MD [address] [place] [address] PCP - General 01/11/10 documented as of this encounter
--- OUTSIDE RECORDS SUMMARY | 2023-09-25 11:47 | XMS_ITS | Encounter Summary ---
Author Organization Formerly [facility] Address [facility]arita [facility] [place] [address] Care Team Providers Care Informatica Architect Name Role Phone Trinh Coates MD Primary Care Provider [phone] Encounter Details Date Type Department Care Team (Late st Contact Info) Description 10/28/2017 Telephone Hematology [place] [address] [facility] DR HEMATOLOGY/[place] [address] Social History Tobacco Use Types Packs/Day Years [...] Received a call from lucas Nuñez at [facility] calling to discuss Mrs. Sandoval's care. (please [...] . Has labs ordered for tomorrow at [facility], but asked if these couldbe deferred until [...] have US today (and we don't at [facility]), so if there was high enough suspicion for DVT based off of their exam, recommended a dose of lovenox with outpatient US tomorrow (which is what we would do at the [facility] ED on a weekend). EKG was normal and no CP/SOB/tachycardia to suggest PE. All questions were answered and they were encouraged to call with any other concerns. Asked Mrs. Sandoval to call the clinic tomorrow with any updates. CC: Dr. Barnett [facility] Breast Onc pharmacy technology instructor Abby Stevenson MD Hematology/Oncology Fellow 10/28/17 documented in this encounter Plan of Treatment Upcoming Encounters Date Type Department Care Team (Late st Contact Info) Description 01/22/2024 10:30 AM EST Appointment Mammography/[place] [address] [facility] [place] [address] 01/30/2024 11:30 AM EST Office Visit Dermatology at [facility] [address] [place] [address] [facility] [place] [address] 02/14/2024 7:30 AM [place] [address] [facility] [place] [address] documented as of this encounter Visit Diagnoses Not on filedocumented in this encounter Care Teams Informatica Architect Relationship Specialty Start Date End Date Trinh Coates MD [facility] [address] [facility] [address] [place] [address] PCP - General 01/11/10 documented as of this encounter
--- OUTSIDE RECORDS SUMMARY | 2023-09-25 11:47 | XMS_ITS | Encounter Summary ---
Author Organization [facility] [place] [address] Care Team Providers Care De Icer Name Role Phone Trinh Coates MD Primary Care Provider [phone] Reason for Visit * Treatment/Therapy Plan Authorization (Routine) - Closed Specialty Diagnoses / Procedures Referred By Diamante marin Referred To Contact Diagnoses Malignant neoplasm of upper-outer quadrant of left breast in female, estrogen receptor positive Procedures TC PACLITAXEL, 1MG, INJ TC PEGFILGRASTIM, 6MG, INJECTION Josias Barnett MD [facility] DR HEMATOLOGY/[place] [address] [facility] [address] [place] [address] Referral ID Status Reason Start Date Expiration Date Visits Re quested Visits Authorized [id number] Closed 10/01/2017 10/01/2018 21 21 Encounter Details Date Type Department Care Team (Latest Contact Info) Description 11/15/2017 10:05 AM EDT Hospital Encounter Hematology [place] [address] Malignant neoplasm of upper-outer quadrant [...] 01/22/2024 10:30 AM EST Appointment Mammography/[place] [address] Ladi Mendosa MD [facility] [place] [address] 01/30/2024 11:30 AM EST Office Visit Dermatology at [facility] [address] [place] [phone] Nilda Luis MD [facility] [place] [address] 02/14/2024 7:30 AM EST Appointment Radiology at [facility] [place] [address] Joanna Watts MD [facility] [place] [address] documented as of this encounter Procedures Procedure [...] estrogen receptor positive COMPREHENSIVE METABOLIC PANEL STAT 11/15/2017 10:45 AM EDT Malignant neoplasm of upper-outer quadrant of left breast in female, estrogen receptor positive documented in this encounter Results * (ABNORMAL) Differential, Automated (11/15/2017 10:45 AM EDT) Neutrophil % 64.2 % [facility] Neutrophil Absolute 4.89 1.70 - 6.10 x10(3)/mc L [facility] Lymph % 11.2 % [facility] Lymphocytes Abs 0.8(L) 0.9 - 3.2 x10(3)/mc L [facility] Monocyte % 16.8 % [facility] Monocyte Abs 1.3(H) 0.3 - 0.9 x10(3)/mc L [facility] Eos % 5.4 % [facility] Eosinophils Abs 0.4 0.0 - 0.4 x10(3)/mc L [facility] Basophil % 1.4 % [facility] Baso Absolute 0.1 0.0 - 0.1 x10(3)/[facility] Immature Gran % 1.00 % [facility] Comment: Immature granulocytes(IG's)percentage and absolute count will include metamyelocytes, myelocytes, and promyelocytes. Blood smears from CBCs yielding IG's will be scanned manually for concordance. If this scan disagrees with the automated IG or if promyelocytes are noted, a manual differential will be performed. Immature Gran Absolute 0.08(H) 0.00 - 0.04 x10(3)/[facility] Blood specimen (specimen) 11/15/2017 10:45 AM EDT 11/15/2017 11:32 AM EDT Narrative Resulting Agency Comment Spec In Lab Josias Barnett MD HEMATOLOGY ORDERABLE S Performing Organization Address City/State/[facility] Co de Phone Number [facility] [place] [address] * (ABNORMAL) Hemogram (11/15/2017 10:45 AM EDT) White Blood Cell 7.6 4.0 - 9.5 x10(3)/[facility] Red Blood Cell 3.06(L) 4.00 - 5.21 x10(6)/[facility] Hemoglobin 9.7(L) 11.7 - 15.5 gm/dL [facility] Hematocrit 30.1(L) 35.7 - 45.8 % [facility] Mean Cell Volume 98.4(H) 82.6 - 94.4 fL [facility] Mean Cell Hemoglobin 31.7 27.1 - 32.0 pg [facility] Mean Cell Hemoglobin Concentration 32.2 31.7 - 35.0 gm/dL [facility] Platelet 327 145 - 357 x10(3)/[facility] RDW Standard Deviation 56.2(H) 37.0 - 46.0 fL [facility] RDW coefficient of variation 15.6(H) 11.5 - 14.1 % [facility] Mean Platelet Volume 8.8 7.6 - 12.9 fL [facility] NRBC% auto 0.0 % [facility] NRBC Absolute 0.000 0.000 - 0.000 x10(3)/mc L [facility] Blood specimen (specimen) 11/15/2017 10:45 AM EDT 11/15/2017 11:32 AM EDT Narrative Resulting Agency Comment Spec In Lab Josias Barnett MD HEMATOLOGY ORDERABLE S [facility] [place] [address] * (ABNORMAL) Comprehensive metabolic panel (non-fasting) (11/15/2017 10:45 AM EDT) Glucose 108 65 - 199 mg/dL [facility] Comment:Diabetes: >=200 mg/d L plus symptoms Blood Urea Nitrogen 13 8 - 18 mg/dL [facility] Creatinine 0.88 0.70 - 1.20 mg/dL [facility] Sodium 143 135 - 145 mmol/L [facility] Potassium 3.6 3.5 - 5.0 mmol/L [facility] Comment: Please note: ??Patients with WBC >100,000 may have falsely elevated Potassium levels. ??For accurate Potassium quantification in these patients send serum separator tube (gold top) for subsequent determinations. ??Contact the Clinical Chemistry Laboratory if there are any questions. Chloride 105 98 - 107 mmol/L [facility] Carbon Dioxide 23 22 - 31 mmol/L [facility] Anion Gap 15 5 - 15 mmol/L [facility] Calcium 8.5 8.5 - 10.5 mg/dL [facility] Protein, Total 6.7 6.1 - 8.0 gm/dL [facility] Albumin 3.9 3.2 - 5.2 gm/dL [facility] Aspartate Aminotransferase 19 0 - 30 unit/L [facility] Alanine Aminotransferase 28 0 - 30 unit/L [facility] Alkaline Phosphatase 111(H) 40 - 104 unit/L [facility] Bilirubin, Total 0.3 0.2 - 1.3 mg/dL [facility] Est Glomerular Filtration Rate 74 >=60 mL/min/1. 73 m?? [facility] Comment: The eGFR was calculated using the CKD-EPI equation. As with all creatinine based estimates of kidney function, eGFR values calculated with the CKD-EPI equation are not accurate in patients with acute kidney failure, extremes of body mass or the acutely ill. http://[email or web address].menkf eGFR 86 >=60 mL/min/1. 73 m?? [facility] Comment: The eGFR was calculated using the CKD-EPI equation. As with all creatinine based estimates of kidney function, eGFR values calculated with the CKD-EPI equation are not accurate in patients with acute kidney failure, extremes of body mass or the acutely ill. http://Shopintoit/DHnkf Blood specimen (specimen) 11/15/2017 10:45 AM EDT 11/15/2017 11:32 AM EDT Narrative Resulting Agency Comment Spec In Lab Josias Barnett MD CHEMISTRY ORDERABLES [facility] [address] documented in this encounter Visit Diagnoses Diagnosis [...] Starting on Sosa 11/15/17 at 1012, Until Sun11/16/17 at 0441, Line Care, Flush pertains to all indwelling lines. Flush per protocol found in the job aid using the link provided on this medication record. Refer to Intravenous (IV) Job Aid: Adult Flushing & Catheter Care (6625) job aid for additional information regarding guidelines and administration., Routine Given 11/15/2017 11:08 AM EDT 20 mLs documented in this encounter Care Teams De Icer Relationship Specialty Start Date End Date Trinh Coates MD [address] [place] [address] PCP - General 01/11/10 documented as of this encounter
--- OUTSIDE RECORDS SUMMARY | 2023-09-25 11:47 | XMS_ITS | Encounter Summary ---
Author Organization [facility] [place] [address] Care Team Providers Care Biometric Technician Name Role Phone Trinh Coates MD Primary Care Provider [phone] Reason for Visit * Reason Comments Breast Cancer * Treatment/Therapy Plan Authorization (Routine) - Closed Specialty Diagnoses / Procedures Referred By Diamante marin Referred To Contact Diagnoses Malignant neoplasm of upper-outer quadrant of left breast in female, estrogen receptor positive Procedures TC PACLITAXEL, 1MG, INJ TC PEGFILGRASTIM, 6MG, INJECTION Josias Barnett MD [facility] DR HEMATOLOGY/[place] [address] [facility] [address] [place] [address] Referral ID Status Reason Start Date Expiration Date Visits Re quested Visits Authorized [id number] Closed 10/01/2017 10/01/2018 21 21 Encounter Details Date Type Department Care Team (Latest Contact Info) Description 11/01/2017 10:17 AM EDT - 11/01/2017 11:59 PM EDT Hospital Encounter Hematology [place] [address] Malignant neoplasm of upper-outer quadrant [...] 10:30 AM EST Appointment Mammography/[place] [address] Ladi Mendosa MD [facility] HEMATOLOGY [place] [address] 01/30/2024 11:30 AM EST Office Visit Dermatology at [place] [address] [place] [address] Nilda Luis MD [facility] [place] [address] 02/14/2024 7:30 AM EST [place] [address] Joanna Watts MD [facility] [place] [address] documented as of this encounter Visit Diagnoses [...] Job Aid: Adult Flushing & Catheter Care (3395) job aid for additional information regarding guidelines [...] Job Aid: Adult Flushing & Catheter Care (9334) job aid for additional information regarding guidelines and administration., Routine Given 11/01/2017 4:42 PM EDT 10 mLs documented in this encounter Care Teams Biometric Technician Relationship Specialty Start Date End Date Trinh Coates MD [address] [place] [address] PCP - General 01/11/10 documented as of this encounter
--- OUTSIDE RECORDS SUMMARY | 2023-09-25 11:47 | XMS_ITS | Encounter Summary ---
Author Organization [facility] Address [facility] [place] [address] Care Team Providers Care Chief Pharmacist Name Role Phone Trinh Coates MD Primary Care Provider [phone] Encounter Details Date Type Department Care Team (Late st Contact Info) Description 10/28/2017 Telephone Hematology [place] [address] Abby Stevenson MD [facility] DR HEMATOLOGY/[place] [address] Social History Tobacco Use Types Packs/Day Years [...] two weeks, requiring 2 ED visits to [facility] with potassium of 1.8 a few weeks ago requiring ICU monitoring, and a potassium of 2.7 on last check lastweek. She also reports left arm swelling - noticed today - with tingling in her L. Hand without associated redness or warmth. Otherwise denies fevers, CP, palpitations, SOB, abd pain, N/V or any other symptoms. Though she has labs set up at [facility] tomorrow, given her history of significant hypokalemia [...] getting labs checked tomorrow and faxed to [facility] for follow up. Encouraged her to call back if she has any further questions. Abby Stevenson MD Hematology/Oncology Fellow 10/28/17 CC: Dr. Barnett & Breast staff occupational therapist documented in this encounter Plan of Treatment Upcoming Encounters Date Type Department Care Team (Late st Contact Info) Description 01/22/2024 10:30 AM EST Appointment Mammography/DXA at [place] [phone] Ladi Mendosa MD [facility] DR [place] [address] 01/30/2024 11:30 AM EST Office Visit Dermatology at [facility] [address] [place] [address] Nilda Luis MD [facility] [place] [address] 02/14/2024 7:30 AM EST Appointment [place] [address] Joanna Watts MD [facility] [place] [address] documented as of this encounter Visit Diagnoses Not on filedocumented in this encounter Care Teams Chief Pharmacist Relationship Specialty Start Date End Date Trinh Coates MD [address] [facility] 1 [place] [address] PCP - General 01/11/10 documented as of this encounter
--- OUTSIDE RECORDS SUMMARY | 2023-09-25 11:47 | XMS_ITS | Encounter Summary ---
Author Organization [facility] Address [place] [address] Care Team Providers Care Speaker Wirer Name Role Phone Trinh Coates MD Primary Care Provider [phone] Reason for Visit * Reason Comments Follow Up Surgery s/p bilat expanders Encounter Details Date Type Department Care Team (Late st Contact Info) Description 12/05/2017 8:40 AM EDT Office [place] [address] Jolene Azevedo APRN [facility] [place] [address] S/P breast reconstruction, bilateral Social History Tobacco [...] reconstruction with attempted SALVADOR flaps, eventual tissue training and development project leader placement with [place] [employer] 600 cc expanders placed bilaterally and filled with 450 cc of methyleneblue impregnated saline.) Complications: right parietal and visceral pleural tear, arterial flap failure bilaterally Date of surgery: 06/22/17 Procedure(s) left breast wound debridement, excision and closure. Debridement of umbilicus. Deflation of training and development project leader volume, This leaves 450 cc in the left tissue training and development project leader and 500 cc on the right side [...] flaps, placement of permanent implants, capsulotomies CPT: 95857, 15518, 73842, 24216 Surgical site: Breasts, back Side: iain Anesthesia: General Follow up: 10-14 Days After discharge AEE PAT: No Implants needed: 3x [id number] 350CC 12.3 RSZ-WNK434K FJJD108 370CC 12.6 RSZ-YAV851T KGHX752 405CC 12.7 RSZ-VCY878X SXTZ571 440CC 13.1 RSZ-HNW186G DRTZ823 465CC 13.3 RSZ-BRI202J HNTC243 490CC 13.6 RSZ-HPL674N WEFB982 525CC 13.9 RSZ-THY985B QMOX440 545CC 14 RSZ-AHV697W RNVI152 560CC 14.3 RSZ-JTS518D EHPF872 605CC 14.5 RSZ-IOV767C I, Nimo Llamas, have performed the documentation [...] 01/22/2024 10:30 AM EST Appointment Mammography/DXA at [place] [phone] Ladi Mendosa MD [facility] HEMATOLOGY [place] [address] 01/30/2024 11:30 AM EST Office Visit Dermatology at [place] [address] [place] [address] Nilda Luis MD [facility] [place] [address] 02/14/2024 7:30 AM EST Appointment Radiology at [place] [phone] Joanna Watts MD [facility] [address] documented as of this encounter Visit Diagnoses Diagnosis S/P breast reconstruction, bilateral Breast replaced by other means documented in this encounter Care Teams Speaker Wirer Relationship Specialty Start Date End Date Trinh Coates MD [facility] [address] [place] [address] PCP - General 01/11/10 documented as of this encounter
--- OUTSIDE RECORDS SUMMARY | 2023-09-25 11:47 | XMS_ITS | Encounter Summary ---
Author Organization [facility] [place] [address] Care Team Providers Care Chief Airline Radio Operator Name Role Phone Trinh Coates MD Primary Care Provider [phone] Encounter Details Date Type Department Care Team (Late st Contact Info) Description 11/14/2017 Telephone Hematology [place] [address] Corine Barron [facility] HEMATOLOGY/[place] [address] Social History Tobacco Use Types Packs/Day Years [...] is provided below. Please be advised that [place] law requires that allhealth care workers respect the confidentiality of this information and not pass it along to other health care providers, insurance companies, or individuals without the written permission of the patient. The Familial Cancer Program welcomes any questions about these matters. Our phone number is: [phone]. On October 31, 2017, Wendy underwent genetic testing for a hereditary predisposition to common hereditary cancers, including breast, gynecologic and gastrointestinal cancers. Following are the results of this test. Result: [facility]'s Common Hereditary Cancers Panel showed no mutation was detected. This means that Wendy does not carry a mutation in the genes detectable by this test. The following genes were evaluated for sequence changes and exonic deletions/duplications: APC, AMAURY, AXIN2, BARD1, BMPR1A, BRCA1, BRCA2,BRIP1, CDH1, CDKN2A (p14ARF), CDKN2A ([id number]), CHEK2, CTNNA1, DICER1, EPCAM (EPCAM: Deletion/duplication testing only ([id number]), GREM1 (GREM1: Promoter region deletion/duplication testing only.), KIT, MEN1, MLH1, MSH2, MSH3, MSH6, MUTYH, NBN, NF1, PALB2, PDGFRA, PMS2, POLD1, POLE, PTEN, RAD50, RAD51C, RAD51D, SDHB, SDHC, SDHD, SMAD4, SMARCA4, STK11, TP53, TSC1, TSC2, VHL. The following genes were evaluated for sequence changes only: HOXB13 (c.251G>A, p.Nmo01Dzd variant only), NTHL1 (NTHL1: Deletion/duplication analysis is not offered for this gene ([id number]), and SDHA. A variant of uncertain significance in the AMAURY gene, specifically c.5727G>A (p.Brx2909Zdv), was detected. [facility] enclosing a printed copy of Wendy's test results. Interpretation: It is unclear at this time whether the AMAURY variant of uncertain significance identified in Wendy is a cancer associated mutation or is a benign change in the gene with no increased cancer risks. [facility] is continually collecting and analyzing their data, [...] screening studies in addition to an annual UNIT LEADER exam at this time. Other cancer screening ?? Periodic colonoscopy screening as recommended by Wendy's director state pharmacy. ?? Periodic skin exams documented in this encounter Plan of Treatment Upcoming Encounters Date Type Department Care Team (Late st Contact Info) Description 01/22/2024 10:30 AM EST Appointment Mammography/[place] [address] Ladi Mendosa MD [facility] DR [place] [address] 01/30/2024 11:30 AM EST Office Visit Dermatology at [facility] [address] [place] [address] Nilda Luis MD [facility] [place] [address] 02/14/2024 7:30 AM EST [place] [address] Joanna Watts MD [facility] [place] [address] documented as of this encounter Visit Diagnoses Not on filedocumented in this encounter Care Teams Chief Airline Radio Operator Relationship Specialty Start Date End Date Trinh Coates MD [facility] [address] [address] PCP - General 01/11/10 documented as of this encounter
--- OUTSIDE RECORDS SUMMARY | 2023-09-25 11:47 | XMS_ITS | Encounter Summary ---
Author Organization [place] [address] Care Team Providers Care Biometrics Consultant Name Role Phone Trinh Coates MD Primary Care Provider Reason for Visit * Treatment/Therapy Plan Authorization (Routine) - Closed Specialty Diagnoses / Procedures Referred By Diamante marin Referred To Contact Diagnoses Malignant neoplasm of upper-outer quadrant of left breast in female, estrogen receptor positive Procedures TC PACLITAXEL, 1MG, INJ TC PEGFILGRASTIM, 6MG, INJECTION Josias Barnett MD [facility] DR HEMATOLOGY/[place] [address] [facility] Hem Onc [address] [place] [address] Referral ID Status Reason Start Date Expiration Date Visits Re quested Visits Authorized [id number] Closed 10/01/2017 10/01/2018 21 21 Encounter Details Date Type Department Care Team (Latest Contact Info) Description 10/18/2017 8:00 AM EDT - 10/18/2017 8:14 AM EDT Hospital Encounter Hematology [place] [address] Malignant neoplasm of upper-outer quadrant [...] 01/22/2024 10:30 AM EST Appointment Mammography/[place] [address] Ladi Mendosa MD [facility] [address] [place] [address] 01/30/2024 11:30 AM EST Office Visit Dermatology at [address] [place] [address] Nilda Luis MD [facility] [place] [address] 02/14/2024 7:30 AM EST Appointment Radiology at [facility] [place] [phone] Joanna Watts MD [facility] [place] [address] documented as of this encounter Procedures Procedure [...] estrogen receptor positive COMPREHENSIVE METABOLIC PANEL STAT 10/18/2017 8:30 AM EDT Malignant neoplasm of upper-outer quadrant of left breast in female, estrogen receptor positive documented in this encounter Results * Scan, Peripheral Blood (10/18/2017 8:30 AM EDT) Plat estimate Normal [facility] RBC Morphology Abnormal [facility] Microcyte 1-5 /HPF [facility] Ovalocytes 1-5 /HPF [facility] Plat, Giant Less than 1 /HPF [facility] Blood specimen (specimen) 10/18/2017 8:30 AM EDT 10/18/2017 8:32 AM EDT Narrative Resulting Agency Comment Spec In Lab Josias Barnett MD HEMATOLOGY ORDERABLE S Performing Organization Address City/[facility]/ZIP Co de Phone Number [facility] [place] [address] * (ABNORMAL) Differential, Automated (10/18/2017 8:30 AM EDT) Neutrophil % 75.9 % [facility] Neutrophil Absolute 14.84(H) 1.70 - 6.10 x10(3)/mc L [facility] Lymph % 5.9 % [facility] Lymphocytes Abs 1.2 0.9 - 3.2 x10(3)/ L [facility] Monocyte % 9.7 % [facility] Monocyte Abs 1.9(H) 0.3 - 0.9 x10(3)/ L [facility] Eos % 1.9 % [facility] Eosinophils Abs 0.4 0.0 - 0.4 x10(3)/[facility] Basophil % 1.7 % [facility] Baso Absolute 0.3(H) 0.0 - 0.1 x10(3)/ L [facility] Immature Gran % 4.90 % [facility] Comment: Immature granulocytes(IG's)percentage and absolute count will include metamyelocytes, myelocytes, and promyelocytes. Blood smears from CBCs yielding IG's will be scanned manually for concordance. If this scan disagrees with the automated IG or if promyelocytes are noted, a manual differential will be performed. Immature Gran Absolute 0.97(H) 0.00 - 0.04 x10(3)/mc L [facility] Blood specimen (specimen) 10/18/2017 8:30 AM EDT 10/18/2017 8:32 AM EDT Narrative Resulting Agency Comment Spec In Lab Josias aBrnett MD HEMATOLOGY ORDERABLE S Performing Organization Address City/[facility]/ZIP Co de Phone Number [facility] [place] [address] * (ABNORMAL) Hemogram (10/18/2017 8:30 AM EDT) Pathologist [facility] White Blood Cell 19.6(H) 4.0 - 9.5 x10(3)/mc L [facility] Red Blood Cell 3.15(L) 4.00 - 5.21 x10(6)/mc L [facility] Hemoglobin 9.9(L) 11.7 - 15.5 gm/dL [facility] Hematocrit 30.1(L) 35.7 - 45.8 % [facility] Mean Cell Volume 95.6(H) 82.6 - 94.4 fL [facility] Mean Cell Hemoglobin 31.4 27.1 - 32.0 pg [facility] Mean Cell Hemoglobin Concentration 32.9 31.7 - 35.0 gm/dL [facility] Platelet 337 145 - 357 x10(3)/ L [facility] RDW Standard Deviation 63.4(H) 37.0 - 46.0 [facility] RDW coefficient of variation 18.5(H) 11.5 - 14.1 % [facility] Mean Platelet Volume 8.8 7.6 - 12.9 fL [facility] NRBC% auto 0.3 % [facility] NRBC Absolute 0.050(H) 0.000 - 0.000 x10(3)/ L [facility] Blood specimen (specimen) 10/18/2017 8:30 AM EDT 10/18/2017 8:32 AM EDT Narrative Resulting Agency Comment Spec In Lab Josias Barnett MD HEMATOLOGY ORDERABLE S [facility] [place] [address] * (ABNORMAL) Comprehensive metabolic panel (non-fasting) (10/18/2017 8:30 AM EDT) Pathologist [facility] Glucose 121 65 - 199 mg/dL [facility] Comment:Diabetes: >=200 mg/d L plus symptoms Blood Urea Nitrogen 27(H) 8 - 18 mg/dL [facility] Creatinine 1.36(H) 0.70 - 1.20 mg/dL [facility] Sodium 139 135 - 145 mmol/L [facility] Potassium 4.3 3.5 - 5.0 mmol/L [facility] Comment: Please note: ??Patients with WBC >100,000 may have falsely elevated Potassium levels. ??For accurate Potassium quantification in these patients send serum separator tube (gold top) for subsequent determinations. ??Contact the Clinical Chemistry Laboratory if there are any questions. Chloride 104 98 - 107 mmol/L [facility] Carbon Dioxide 20(L) 22 - 31 mmol/L [facility] Anion Gap 15 5 - 15 mmol/L [facility] Calcium 9.0 8.5 - 10.5 mg/dL [facility] Protein, Total 6.9 6.1 - 8.0 gm/dL [facility] Albumin 3.9 3.2 - 5.2 gm/dL [facility] Aspartate Aminotransferase 13 0 - 30 unit/L [facility] Alanine Aminotransferase 24 0 - 30 unit/L [facility] Alkaline Phosphatase 139(H) 40 - 104 unit/L [facility] Bilirubin, Total 0.3 0.2 - 1.3 mg/dL [facility] Est Glomerular Filtration Rate 44(L) >=60 mL/min/1. 73 m?? [facility] Comment: The eGFR was calculated using the CKD-EPI equation. As with all creatinine based estimates of kidney function, eGFR values calculated with the CKD-EPI equation are not accurate in patients with acute kidney failure, extremes of body mass or the acutely ill. [email or web address] eGFR 51(L) >=60 mL/min/1. 73 m?? [facility] Comment: The eGFR was calculated using the CKD-EPI equation. As with all creatinine based estimates of kidney function, eGFR values calculated with the CKD-EPI equation are not accurate in patients with acute kidney failure, extremes of body mass or the acutely ill. [email or web address] Blood specimen (specimen) 10/18/2017 8:30 AM EDT 10/18/2017 8:32 AM EDT Narrative Resulting Agency Comment Spec In Lab Josias Barnett MD CHEMISTRY ORDERABLES [facility] [place] [address] documented in this encounter Visit Diagnoses Diagnosis [...] Job Aid: Adult Flushing & Catheter Care (8986) job aid for additional information regarding guidelines and administration., Routine Given 10/18/2017 8:26 AM EDT 20 mLs documented in this encounter Care Teams Biometrics Consultant Relationship Specialty Start Date End Date Trinh Coates MD [address] [place] [address] PCP - General 01/11/10 documented as of this encounter
--- OUTSIDE RECORDS SUMMARY | 2023-09-25 11:47 | XMS_ITS | Encounter Summary ---
Author Organization [facility] [place] [address] Care Team Providers Care Key Worker Name Role Phone Trinh Coates MD Primary Care Provider [phone] Encounter Details Date Type Department Care Team (Late st Contact Info) Description 11/14/2017 Telephone Hematology [place] [address] Corine Barron [facility] HEMATOLOGY/[place] [address] Social History Tobacco Use Types Packs/Day Years [...] 01/22/2024 10:30 AM EST Appointment Mammography/[place] [address] Ladi Mendosa MD [facility] HEMATOLOGY [place] [address] 01/30/2024 11:30 AM EST Office Visit Dermatology at [facility] [address] [place] [phone] Nilda Luis MD [facility] [place] [address] 02/14/2024 7:30 AM EST Appointment Radiology at [place] [phone] Joanna Watts MD [facility] [place] [address] documented as of this encounter Visit Diagnoses Not on filedocumented in this encounter Care Teams Key Worker Relationship Specialty Start Date End Date Trinh Coates MD [facility] [address] [place] [address] PCP - General 01/11/10 documented as of this encounter
--- OUTSIDE RECORDS SUMMARY | 2023-09-25 11:47 | XMS_ITS | Encounter Summary ---
Author Organization [facility] Address [facility] [place] [address] Care Team Providers Care Sports Development Officer Name Role Phone Trinh Coates MD Primary Care Provider [phone] Reason for Visit * Auth/Cert Specialty Diagnoses / Procedures Referred By Diamante t Referred To Contact Diagnoses Malignant neoplasm of upper-outer quadrant of left female breast Estrogen receptor positive status (ER+) hx of breast cancer Procedures PRO REVISE BREAST RECONSTRUCTION PRO REPLACE TISSUE DOOR PERSON PRO SURGERY OF BREAST CAPSULE REVISION OFRECONSTRUCTED BREAST, SUSAN (WRVU 10.41) TISSUE DOOR PERSON REPLACEMENT, WITH PERMANENT PROSTHESIS, SUSAN (WRVU 8.01) BREAST, CAPSULOTOMY, OPEN PERIPROSTHETIC -SUSAN (WRVU 9.17) Referral ID Status Reason Start Date Expiration Date Visits Re quested Visits Authorized [id number] 1 1 Encounter Details Date Type Department Care Team (Late st Contact Info) Description 12/12/2017 3:04 PM EDT - 12/12/2017 8:32 PM EDT [place] [address] Mali Lakhani MD [facility] [place] [address] @BREAST RECONSTRUCTION W/ LAT DORSI FLAP,W/O IMPLANT, [...] flaps, placement of permanent implants, capsulotomies CPT: 92763, 65839, 61280, 31115 Surgical site: Breasts, back Side: susan Anesthesia: General Follow up: 10-14 Days After discharge AEE PAT: No Implants needed: 3x @BREAST RECONSTRUCTION W/ LAT DORSI FLAP,W/O IMPLANT, SUSAN (WRVU 23.36) TISSUE DOOR PERSON REPLACEMENT, WITH PERMANENT PROSTHESIS, SUSAN (WRVU 8.01) 04/26/17 Procedure(s): Bilateral breast reconstruction with attempted SALVADOR flaps, eventual tissue cna ltc placement with Cla[place]on Artdenissea??600 cc expanders placed bilaterally and filled??with 450 cc of methylene blue impregnated saline.) Complications: right??parietal and visceral pleural tear, arterial flap failure bilaterally ?? Date of surgery: 06/22/17 Procedure(s) left breast wound debridement, excision and closure. Debridement of umbilicus. Deflation of cna ltc volume, This leaves 450 cc in the left tissue cna ltc and 500 cc on the right side [...] PM Emily Choi MD Radiation Oncology at [facility] [phone] 12/25/2017 11:20 AM Jolene Azevedo APRN Plastic Surgery at [place] Arrive at: [facility] Area 03/12/2018 10:30 AM Lakeisha Reza MD; Flip Angel MD Endocrinology at [facility] Arrive at: [facility] [phone] 06/05/2018 2:30 PM Josias Barnett MD Hematology and Oncology at [facility] Arrive at: [facility] 3K [phone] MEDICATIONS: Your Medications New Medications Dose Details [...] called in to our prescription line at [phone]. Narcotic renewals may be requested from 8am-4pm [...] called in to our prescription line at [phone]. Narcotic renewals may be requested from 8am-4pm [...] Sunday 8 am to 5 pm Call [phone] On weekends or after hours: Call [phone] and ask the clarifier operator helper to page the Plastic Surgery Resident senior application software engineer. General Instructions None Future Appointments and Orders Future Appointments and Orders Future Appointments Provider Department Dept Phone 12/24/2017 3:00 PM Emily Choi MD Radiation Oncology at [facility] [phone] 12/25/2017 11:20 AM Jolene Azevedo APRN Plastic Surgery at [facility] Arrive at: [facility] Area 4M [phone] 03/12/2018 10:30 AM Lakeisha Reza MD; Flip Angel MD Endocrinology at [facility] Arrive at: [facility] Area 5C [phone] 06/05/2018 2:30 PM Josias Barnett MD Hematology and Oncology at [facility] Arrive at: [facility] Area [phone] Discharge References/Attachments: Discharge References/Attachments None Electronically Signed [...] PM Emily Choi MD Radiation Oncology at [facility] [phone] 12/25/2017 11:20 AM Jolene Azevedo APRN Plastic Surgery at [facility] Arrive at: [facility] Area 4M [phone] 03/12/2018 10:30 AM Lakeisha Reza MD; Flip Angel MD Endocrinology at [facility] Arrive at: [facility] Area 5C [phone] 06/05/2018 2:30 PM Josias Barnett MD Hematology and Oncology at [facility] Arrive at: [facility] 3K [phone] MEDICATIONS: Your Medications New Medications Dose Details [...] called in to our prescription line at [phone]. Narcotic renewals may be requested from 8am-4pm [...] called in to our prescription line at [phone]. Narcotic renewals may be requested from 8am-4pm [...] Cliff 8 am to 5 pm Call [phone] On weekends or after hours: Call [phone] and ask the clarifier operator helper to page the Plastic Surgery Resident senior application software engineer. documented in this encounter Medications at [...] post-op course Kaveh Whiteside MD 12/15/2017 Pager: [phone] * Aly Jaimes MD - 12/14/2017 7:06 [...] post-op course Aly Jaimes MD 12/14/2017 Pager: [phone] * Lakia Casey RN - 12/13/2017 8:59 PM EDT Images from the original note were not included. Infiltration/Extravasation Scale Wendy [facility] [id number] 311/311-B Infiltration appearance: Infiltration harm % for [...] PM Name of Plastics MD (if consulted) ACCOUNT UNDERWRITER CARING FOR THIS PATIENT WILL CONTINUE TO [...] post-op course Aly Jaimes MD 12/13/2017 Pager: [phone] * Andreea Garcia MD - 12/13/2017 12:33 [...] Neuro: grossly nonfocal, moving all extremities AP eWndy Sandoval is a 52 y.o. female status post bilateral breast reconstruction with bilaterallatissimus dorsi flaps, currently in stable condition and in need of pain control (and by extension, blood pressure control). - increased pain meds to oxycodone 5-15mg q3h prn - labetalol 10 mg IV x1 for SBP 180 - UOP adequate -continue to monitor -home CPAP Andreea Garcia Pager: [phone] 12/13/17 12:39 AM * Valerie Stratton RN [...] 04/26/2017 Performed by Mali Lakhani MD at [facility] OR ??? BREAST BIOPSY Right 11/01 ??? BREAST RECONSTRUCTION, IMMEDIATE OR DELAYED, W/ TISSUE DOOR PERSON, INCLUDING SUBSEQUENT EXPANSION(WRVU 18.5) Bilateral 04/26/2017 Performed by Mali Lakhani MD at [facility] OR ??? SECTION x 2 ??? DEBRIDEMENT SKIN AND SUBCU, BREAST (WRVU 1.01) 06/22/2017 Performed by Mali Lakhani MD at [facility] OR ??? EXCISION OF RIB, PARTIAL (WRVU 7.26) Bilateral 04/26/2017 Performed by Mali Lakhani MD at [facility] OR ??? FACIAL NERVE MONITORING, SETUP LARYNGEAL (WRVU 1.57) N/A 11/02/2015 Performed by Valentina Lucas MD at [facility] OR ??? FTSG, FREE, DIR CLOSE DONOR SITE, TRUNK, 20 SQ CM OR LESS (WRVU 9.15) Bilateral 04/26/2017 Performed by Mali Lakhani MD at [facility] OR ??? HAND SURGERY Right ??? LYMPHADENECTOMY, AXILLARY, COMPLETE (WRVU 13.87) Left 04/26/2017 Performed by Jolie Menendez MD at [facility] OR ??? MASTECTOMY, SIMPLE, COMPLETE-SUSAN (WRVU 15.85) Bilateral 04/26/2017 Performed by Jolie Menendez MD at [facility] OR ??? MODIFIER , NIPPLE SPARING Bilateral 04/26/2017 Performed by Jolie Menendez MD at [facility] OR ??? PARATHYROIDECTOMY OR EXPLORATION OF PARATHYROID(S) (WRVU 15.6) N/A 11/02/2015 Performed by Valentina Lucas MD at [facility] OR ??? PRG EMG, LARYNX N/A 11/02/2015 FACIAL NERVE MONITORING, SETUP LARYNGEAL performed by Valentina Lucas MD at [facility] OR ??? PRO BREAST RECONSTRUC W FREE FLAP Bilateral 04/26/2017 @BREAST RECONSTRUCTION W/ FREE FLAP, SUSAN (WRVU 42.58) performed by Mali Lakhani MD at [facility] ??? PRO BREAST RECONSTRUC W TISS EXPANDR Bilateral 04/26/2017 BREAST RECONSTRUCTION, IMMEDIATE OR DELAYED, W/ TISSUE DOOR PERSON, INCLUDING SUBSEQUENT EXPANSION (WRVU 18.5) performed by Mali Lakhani MD at [facility] OR ? ? PRO DEBRIDEMENT SUBCUTANEOUS TISSUE 20 SQCM/< 06/22/2017 DEBRIDEMENT SKIN AND SUBCU, BREAST (WRVU 1.01) performed by Mali Lakhani MD at [facility] OR ??? PRO EXPLORE PARATHYROID GLANDS N/A 11/02/2015 PARATHYROIDECTOMY OR EXPLORATION OF PARATHYROID(S) performed by Valentina Lucas MD at [facility] OR ? ? PRO FULL THICK GRFT TRUNK <20 SQCM Bilateral 04/26/2017 FTSG, FREE, DIR CLOSE DONOR SITE, TRUNK, 20 SQ CM OR LESS (WRVU 9.15) performed by Mali Lakhani MD at [facility] OR ??? PRO MASTECTOMY, SIMPLE, COMPLETE Bilateral 04/26/2017 MASTECTOMY, SIMPLE, COMPLETE-SUSAN (WRVU 15.85) performed by Jolie Menendez MD at [facility] OR ??? PRO PARTIAL REMOVAL OF RIB Bilateral 04/26/2017 EXCISION OF RIB, PARTIAL (WRVU 7.26) performed by Mali Lakhani MD at [facility] OR ??? PRO REMOVE ARMPITS LYMPH NODES COMPLT Left 04/26/2017 LYMPHADENECTOMY, AXILLARY, COMPLETE (WRVU 13.87) performed by Jolie Menendez MD at [facility] OR ??? PRO REVISE BREAST RECONSTRUCTION Left 06/22/2017 REVISION OF RECONSTRUCTED BREAST (WRVU 10.41) performed by Mali Lakhani MD at [facility] OR ??? PRO THYMECTOMY, TRANSCERVICAL N/A 11/02/2015 THYMECTOMY, TRANSCERVICAL APPROACH performed by Valentina Lucas MD at [facility] OR ??? REVISION OF RECONSTRUCTED BREAST (WRVU 10.41) Left 06/22/2017 Performed by Mali Lakhani MD at [facility] OR ??? SHOULDER SURGERY Left ??? THYMECTOMY, TRANSCERVICAL APPROACH (WRVU 17.16) N/A 11/02/2015 Performed by Valentina Lucas MD at [facility] OR ??? UMBILICAL HERNIA [...] Pallavi Green MD Plastic Surgery Resident P# [id number] documented in this encounter Miscellaneous Notes * Op Note - Mali Lakhani MD - 12/16/2017 4:31 PM EDT [facility] Operative Note Patient Name: Wendy Sandoval : [id number] MR#: [id number] Case Date: 12/12/2017 Surgeon: Surgeon(s) and Role: * Mali Lakhani MD - Primary * Pallavi Green MD - Resident-Surgeon Hubert Preoperative diagnosis: hx of breast cancer Postoperative diagnosis: hx of breast cancer Procedure(s) (LRB): REVISION OFRECONSTRUCTED BREAST, SUSAN (WRVU 10.41) (Bilateral) @BREAST RECONSTRUCTION W/ LAT DORSI FLAP,W/O IMPLANT, SUSAN (WRVU 23.36) (Bilateral) TISSUE DOOR PERSON REPLACEMENT, WITH PERMANENT PROSTHESIS, SUSAN (WRVU 8.01) (Bilateral) Anesthesia: General Estimated Blood Loss: 100 mL Implant Name Type Inv. Item Serial No. Distribution Superintendent Lot No. LRB No. Used Action MAMMA,GEL,XTRA,MOD+,RND,405CC ([id number]) (AUTOREQ) - [id number] IMPLANTS MAMMA,GEL,XTRA,MOD+,RND,405CC ([id number]) (AUTOREQ) [id number] [employer] [id number] Right 1 Implanted MAMMA,GEL,XTRA,MOD+,RND,405CC ([id number]) (AUTOREQ) - [id number] IMPLANTS MAMMA,GEL,XTRA,MOD+,RND,405CC ([id number]) (AUTOREQ) [id number] [employer] [id number] Left 1 Implanted Specimens removed during surgery: [...] both sides we thendissected into the tissue cna ltc pocket on both sides and removed intact [...] Dose Adjustment for Antimicrobials Wendy Sandoval (A# [id number]) is being treated with the following antimicrobial [...] have shown less 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 Will continue [...] ??complicated by intraoperative demise followed by Tissue Flight Mechanic placement. Pt had Chemo after surgery and it was completed 11/15. Pt is , works from home, dtr is going to move to [place] and be a speech pathologist, her son is not working presently and is at home. He states he will stay with me until I am feeling good. Pt will have RT and has met with Dr Mendoza. I explained what to expect when she goes M-F. Pt has used [facility] in the past but does not [...] Operative Note Patient Name: Wendy Sandoval : [id number] MR#: [id number] Case Date: 12/12/2017 Surgeon: Surgeon(s) and Role: * Mali Lakhani MD - Primary * Pallavi Green MD - Resident-Surgeon Hubert Preoperative diagnosis: hx of breast cancer Postoperative diagnosis: hx of breast cancer Procedure(s) (LRB): REVISION OFRECONSTRUCTED BREAST, SUSAN (WRVU 10.41) (Bilateral) @BREAST RECONSTRUCTION W/ LAT DORSI FLAP,W/O IMPLANT, SUSAN (WRVU 23.36) (Bilateral) TISSUE DOOR PERSON REPLACEMENT, WITH PERMANENT PROSTHESIS, SUSAN (WRVU 8.01) (Bilateral) Anesthesia: General Findings: Implant Name Type Inv. Item Serial No. Distribution Superintendent Lot No. LRB No. Used Action MAMMA,GEL,XTRA,MOD+,RND,405CC ([id number]) (AUTOREQ) - [id number] IMPLANTS MAMMA,GEL,XTRA,MOD+,RND,405CC ([id number]) (AUTOREQ) [id number] [employer] [id number] Right 1 Implanted MAMMA,GEL,XTRA,MOD+,RND,405CC ([id number]) (AUTOREQ) - [id number] IMPLANTS MAMMA,GEL,XTRA,MOD+,RND,405CC ([id number]) (AUTOREQ) [id number] [employer] [id number] Left 1 Implanted Complications: none Estimated Blood [...] 01/22/2024 10:30 AM EST Appointment Mammography/[place] [id number] Ladi Mendosa MD [facility] [address] HEMATOLOGY [place] [address] 01/30/2024 11:30 AM EST Office Visit Dermatology at [address] [place] [address] Nilda Luis MD [facility] [place] [address] 02/14/2024 7:30 AM EST Appointment Radiology at [facility] [place] [phone] Joanna Watts MD [facility] [address] documented as of this encounter Procedures Procedure [...] PANEL Routine 12/13/2017 5:16 AM EDT TISSUE DOOR PERSON REPLACEMENT, WITH PERMANENT PROSTHESIS, SUSAN (WRVU 7.49) Yes 12/12/2017 3:52 PM EDT hx of breast cancer @BREAST RECONSTRUCTION W/ LAT DORSI FLAP,W/O IMPLANT, SUSAN (WRVU 23.36) Yes 12/12/2017 3:52 PM EDT hx of breast cancer REVISION OFRECONSTRUCTED BREAST, SUSAN (WRVU 11.17) Yes 12/12/2017 3:52 PM EDT hx of breast cancer TISSUE DOOR PERSON REPLACE, W/PERMANENT PROSTHESIS, SUSAN Routine 12/12/2017 1:13 PM EDT BREAST RECONSTRUCTION W/ LAT DORSI FLAP,W OR W/O IMPLANT, SUSAN Routine 12/12/2017 1:13 PM EDT TRUCKER SCAN 12/12/2017 12:00 AM EDT documented in this encounter Results * (ABNORMAL) Comprehensive metabolic panel (non-fasting) (12/15/2017 3:20 PM EDT) Glucose 182 65 - 199 mg/dL [facility] Comment:Diabetes: >=200 mg/d L plus symptoms Blood Urea Nitrogen 24(H) 8 - 18 mg/dL [facility] Creatinine 1.35(H) 0.70 - 1.20 mg/dL [facility] Sodium 144 135 - 145 mmol/L [facility] [...] questions. Chloride 109(H) 98 - 107 mmol/L [facility] Carbon Dioxide 22 22 - 31 mmol/L [facility] Anion Gap 13 5 - 15 mmol/L [facility] Calcium 8.2(L) 8.5 - 10.5 mg/dL [facility] Protein, Total 5.5(L) 6.1 - 8.0 gm/dL [facility] Albumin 2.6(L) 3.2 - 5.2 gm/dL [facility] Aspartate Aminotransferase 15 0 - 30 unit/L [facility] Alanine Aminotransferase <5 0 - 30 unit/L [facility] Alkaline Phosphatase 77 40 - 104 unit/L [facility] Bilirubin, Total <0.2(L) 0.2 - 1.3 mg/dL [facility] Est Glomerular Filtration Rate 44(L) >=60 mL/min/1. 73 m?? [facility] Comment: The eGFR was calculated using the CKD-EPI equation. As with all creatinine based estimates of kidney function, eGFR values calculated with the CKD-EPI equation are not accurate in patients with acute kidney failure, extremes of body mass or the acutely ill. [email or web address] Surfing/[facility] eGFR 51(L) >=60 mL/min/1. 73 m?? [facility] Comment: The eGFR was calculated using the CKD-EPI equation. As with all creatinine based estimates of kidney function, eGFR values calculated with the CKD-EPI equation are not accurate in patients with acute kidney failure, extremes of body mass or the acutely ill. [email or web address] [email or web address] Blood specimen (specimen) 12/15/2017 3:20 PM EDT 12/15/2017 3:29 PM EDT Narrative Resulting Agency Comment Spec In Lab Mali Lakhani MD CHEMISTRY ORDERABLES [facility] [place] [address] * (ABNORMAL) Differential, Automated (12/15/2017 10:05 AM EDT) Neutrophil % 76.4 % [facility] Neutrophil Absolute 9.98(H) 1.70 - 6.10 x10(3)/mc L [facility] Lymph % 8.9 % [facility] Lymphocytes Abs 1.2 0.9 - 3.2 x10(3)/mc L [facility] Monocyte % 7.8 % [facility] Monocyte Abs 1.0(H) 0.3 - 0.9 x10(3)/mc L [facility] Eos % 5.2 % [facility] Eosinophils Abs 0.7(H) 0.0 - 0.4 x10(3)/[facility] Basophil % 0.7 % [facility] Baso Absolute 0.1 0.0 - 0.1 x10(3)/[facility] Immature Gran % 1.00 % [facility] Comment: Immature granulocytes(IG's)percentage and absolute count will include metamyelocytes, myelocytes, and promyelocytes. Blood smears from CBCs yielding IG's will be scanned manually for concordance. If this scan disagrees with the automated IG or if promyelocytes are noted, a manual differential will be performed. Immature Gran Absolute 0.13(H) 0.00 - 0.04 x10(3)/[facility] Blood specimen (specimen) 12/15/2017 10:05 AM EDT 12/15/2017 10:23 AM EDT Narrative Resulting Agency Comment Spec In Lab Aly Jaimes MD HEMATOLOGY ORDERABLE S [facility] [place] [address] * (ABNORMAL) Hemogram (12/15/2017 10:05 AM EDT) White Blood Cell 13.1(H) 4.0 - 9.5 x10(3)/[facility] Red Blood Cell 2.50(L) 4.00 - 5.21 x10(6)/ L [facility] Hemoglobin 7.7(L) 11.7 - 15.5 gm/dL [facility] Hematocrit 24.6(L) 35.7 - 45.8 % [facility] Mean Cell Volume 98.4(H) 82.6 - 94.4 fL [facility] Mean Cell Hemoglobin 30.8 27.1 - 32.0 pg [facility] Mean Cell Hemoglobin Concentration 31.3(L) 31.7 - 35.0 gm/dL [facility] Platelet 339 145 - 357 x10(3)/mc L [facility] RDW Standard Deviation 55.8(H) 37.0 - 46.0 fL [facility] RDW coefficient of variation 15.6(H) 11.5 - 14.1 % [facility] Mean Platelet Volume 9.2 7.6 - 12.9 fL [facility] NRBC% auto 0.0 % [facility] NRBC Absolute 0.000 0.000 - 0.000 x10(3)/mc L [facility] Blood specimen (specimen) 12/15/2017 10:05 AM EDT 12/15/2017 10:23 AM EDT Narrative Resulting Agency Comment Spec In Lab Aly Jaimes MD HEMATOLOGY ORDERABLE S [facility] [place] [address] * (ABNORMAL) Basic Metabolic Panel (non-fasting) (12/15/2017 10:05 AM EDT) Glucose 199 65 - 199 mg/dL [facility] Comment:Diabetes: >=200 mg/d L plus symptoms Blood Urea Nitrogen 28(H) 8 - 18 mg/dL [facility] Creatinine 1.40(H) 0.70 - 1.20 mg/dL [facility] Sodium 143 135 - 145 mmol/L [facility] Potassium 3.6 3.5 - 5.0 mmol/L [facility] Comment: Please note: ??Patients with WBC >100,000 may have falsely elevated Potassium levels. ??For accurate Potassium quantification in these patients send serum separator tube (gold top) for subsequent determinations. ??Contact the Clinical Chemistry Laboratory if there are any questions. Chloride 110(H) 98 - 107 mmol/L [facility] Carbon Dioxide 22 22 - 31 mmol/L [facility] Anion Gap 11 5 - 15 mmol/L [facility] Calcium 8.2(L) 8.5 - 10.5 mg/dL [facility] Est Glomerular Filtration Rate 42(L) >=60 mL/min/1. 73 m?? [facility] Comment: The eGFR was calculated using the CKD-EPI equation. As with all creatinine based estimates of kidney function, eGFR values calculated with the CKD-EPI equation are not accurate in patients with acute kidney failure, extremes of body mass or the acutely ill. [email or web address]://Che[employer] Surfing/[facility] eGFR 49(L) >=60 mL/min/1. 73 m?? [facility] Comment: The eGFR was calculated using the CKD-EPI equation. As with all creatinine based estimates of kidney function, eGFR values calculated with the CKD-EPI equation are not accurate in patients with acute kidney failure, extremes of body mass or the acutely ill. [email or web address] [email or web address] Blood specimen (specimen) 12/15/2017 10:05 AM EDT 12/15/2017 10:23 AM EDT Narrative Resulting Agency Comment Spec In Lab Mali Lakhani MD CHEMISTRY ORDERABLES [facility] [place] [address] * (ABNORMAL) Basic Metabolic Panel (non-fasting) (12/14/2017 4:40 AM EDT) Glucose 159 65 - 199 mg/dL [facility] Comment:Diabetes: >=200 mg/d L plus symptoms Blood Urea Nitrogen 34(H) 8 - 18 mg/dL [facility] Comment:delta result recheck ed-KLA Creatinine 2.20(H) 0.70 - 1.20 mg/dL [facility] Comment:delta result recheck ed-KLA Sodium 137 135 - 145 mmol/L [facility] [...] questions. Chloride 99 98 - 107 mmol/L [facility] Carbon Dioxide 22 22 - 31 mmol/L [facility] Anion Gap 16(H) 5 - 15 mmol/L [facility] Calcium 7.6(L) 8.5 - 10.5 mg/dL [facility] Est Glomerular Filtration Rate 25(L) >=60 mL/min/1. 73 m?? [facility] Comment: The eGFR was calculated using the CKD-EPI equation. As with all creatinine based estimates of kidney function, eGFR values calculated with the CKD-EPI equation are not accurate in patients with acute kidney failure, extremes of body mass or the acutely ill. [email or web address]/[facility] eGFR 29(L) >=60 mL/min/1. 73 m?? [facility] Comment: The eGFR was calculated using the CKD-EPI equation. As with all creatinine based estimates of kidney function, eGFR values calculated with the CKD-EPI equation are not accurate in patients with acute kidney failure, extremes of body mass or the acutely ill. [email or web address] Blood specimen (specimen) 12/14/2017 4:40 AM EDT 12/14/2017 4:57 AM EDT Narrative Resulting Agency Comment Spec In Lab Mali Lakhani MD CHEMISTRY ORDERABLES [facility] [place] [address] * Scan, Peripheral Blood (12/13/2017 5:16 AM EDT) Plat estimate Increased [facility] RBC Morphology Abnormal [facility] Macrocyte 1-5 /HPF [facility] [place] Cells 1-5 /HPF [facility] Blood specimen (specimen) 12/13/2017 5:16 AM EDT 12/13/2017 5:25 AM EDT Narrative Resulting Agency Comment Spec In Lab Pallavi Green MD HEMATOLOGY ORDERABLES [facility] [place] [address] * (ABNORMAL) Differential, Automated (12/13/2017 5:16 AM EDT) Neutrophil % 89.7 % [facility] [place] [facility] Neutrophil Absolute 20.59(H) 1.70 - 6.10 x10(3)/mc L [facility] Lymph % 1.9 % [facility] Lymphocytes Abs 0.4(L) 0.9 - 3.2 x10(3)/[facility] LAB[facility]ATORY Monocyte % 7.4 % [facility] Monocyte Abs 1.7(H) 0.3 - 0.9 x10(3)/mc L [facility] Eos % 0.0 % [facility] Eosinophils Abs 0.0 0.0 - 0.4 x10(3)/[facility] LABORATORY Basophil % 0.2 % [facility] Baso Absolute 0.0 0.0 - 0.1 x10(3)/ L [facility] Immature Gran % 0.80 % [facility] Comment: Immature granulocytes(IG's)percentage and absolute count will include metamyelocytes, myelocytes, and promyelocytes. Blood smears from CBCs yielding IG's will be scanned manually for concordance. If this scan disagrees with the automated IG or if promyelocytes are noted, a manual differential will be performed. Immature Gran Absolute 0.18(H) 0.00 - 0.04 x10(3)/mc L [facility] Blood specimen (specimen) 12/13/2017 5:16 AM EDT 12/13/2017 5:25 AM EDT Narrative Resulting Agency Comment Spec In Lab Pallavi Green MD HEMATOLOGY ORDERABLES [facility] [place] [address] * (ABNORMAL) Hemogram (12/13/2017 5:16 AM EDT) White Blood Cell 23.0(H) 4.0 - 9.5 x10(3)/mc L [facility] Red Blood Cell 2.89(L) 4.00 - 5.21 x10(6)/mc L [facility] Hemoglobin 9.0(L) 11.7 - 15.5 gm/dL [facility] Hematocrit 28.4(L) 35.7 - 45.8 % [facility] Mean Cell Volume 98.3(H) 82.6 - 94.4 fL [facility] Mean Cell Hemoglobin 31.1 27.1 - 32.0 [facility] LABORATORY Mean Cell Hemoglobin Concentration 31.7 31.7 - 35.0 gm/dL [facility] Platelet 380(H) 145 - 357 x10(3)/mc L [facility] RDW Standard Deviation 54.8(H) 37.0 - 46.0 [facility] LABORATORY RDW coefficient of variation 15.1(H) 11.5 - 14.1 % [facility] Mean Platelet Volume 8.9 7.6 - 12.9 [facility] LABORATORY NRBC% auto 0.0 % [facility] NRBC Absolute 0.000 0.000 - 0.000 x10(3)/ L [facility] Blood specimen (specimen) 12/13/2017 5:16 AM EDT 12/13/2017 5:25 AM EDT Narrative Resulting Agency Comment Spec In Lab Pallavi Green MD HEMATOLOGY ORDERABLES [facility] [place] [address] * (ABNORMAL) Magnesium (12/13/2017 5:16 AM EDT) Magnesium 0.63(L) 0.69 - 1.07 mmol/L [facility] Blood specimen (specimen) 12/13/2017 5:16 AM EDT 12/13/2017 5:25 AM EDT Narrative Resulting Agency Comment Spec In Lab Mali Lakhani MD CHEMISTRY ORDERABLES [facility] [place] [address] * (ABNORMAL) Basic Metabolic Panel (non-fasting) (12/13/2017 5:16 AM EDT) Pathologist [facility] Glucose 184 65 - 199 mg/dL [facility] Comment:Diabetes: >=200 mg/d L plus symptoms Blood Urea Nitrogen 14 8 - 18 mg/dL [facility] Creatinine 1.19 0.70 - 1.20 mg/dL [facility] Sodium 142 135 - 145 mmol/L [facility] Potassium 3.2(L) 3.5 - 5.0 mmol/L [facility] Comment: Please note: ??Patients with WBC >100,000 may have falsely elevated Potassium levels. ??For accurate Potassium quantification in these patients send serum separator tube (gold top) for subsequent determinations. ??Contact the Clinical Chemistry Laboratory if there are any questions. Chloride 103 98 - 107 mmol/L [facility] Carbon Dioxide 20(L) 22 - 31 mmol/L [facility] Anion Gap 19(H) 5 - 15 mmol/L [facility] Calcium 7.8(L) 8.5 - 10.5 mg/dL [facility] Est Glomerular Filtration Rate 52(L) >=60 mL/min/1. 73 m?? [facility] Comment: The eGFR was calculated using the CKD-EPI equation. As with all creatinine based estimates of kidney function, eGFR values calculated with the CKD-EPI equation are not accurate in patients with acute kidney failure, extremes of body mass or the acutely ill. http://[employer]/[facility] OKLAHOMA CITYnkf eGFR 60 >=60 mL/min/1. 73 m?? [facility] Comment: The eGFR was calculated using the CKD-EPI equation. As with all creatinine based estimates of kidney function, eGFR values calculated with the CKD-EPI equation are not accurate in patients with acute kidney failure, extremes of body mass or the acutely ill. [email or web address]/[facility]nkf Blood specimen (specimen) 12/13/2017 5:16 AM EDT 12/13/2017 5:25 AM EDT Narrative Resulting Agency Comment Spec In Lab Mali Lakhani MD CHEMISTRY ORDERABLES [facility] [place] [address] * SCAN DOC: TRUCKER (12/12/2017 12:00 AM EDT) Anatomical Region Laterality [...] Easton RN)2047 (Given - Provider: Gerald Vanessa, RN) 0617 (Given - Provider: Gerald Vanessa, RN)1349 (Given - Provider: Andreea Singleton RN) [...] Karley Easton RN)1907 (Stopped - Provider: Gerald Vanessa, JENNYFER) 0247 (New Bag - Provider: Celine German, [...] Prophylaxis 1020 (New Bag - Provider: Andreea Singleton, JENNYFER)1050 (Stopped - Provider: Andreea Singleton RN) diazePAM (VALIUM) tablet 5 mg 5 mg, Oral, EVERY 8 HOURS, First dose (after last modification) on Sosa 12/13/17 at 1345, Until Discontinued, Routine 0552 (Given - Provider: Jamil Wallace RN)1419 (Given - Provider: Karley Easton RN) 0009 (Given - Provider: Celine German, JENNYFER)0928 (Given - Provider: Karley Easton, JENNYFER)1429 (Given - Provider: Karley Easton RN)204 (Given - Provider: Gerald Vanessa RN) 0617 (Given - Provider: Gerald Vanessa, JENNYFER)1349 (Given - Provider: Andreea Singleton RN) dilTIAZem [...] Sosa 12/13/17 at 0900, Until Discontinued, Routine 0918 (Given [...] Sosa 12/13/17 at 0900, Until Discontinued, Routine 09 (Given - Provider: Alyssa Crzu) 09 (Given - Provider: Karley Easton RN) [...] Intravenous, 2 TIMES DAILY, First dose on 12/12/17 at 2315, Until Discontinued, Recovery (Recovery-Hospital Unit), Routine 0900 (Not Given - Provider: Alyssa Cruz - Reason: See comment - Comment: ivf running)2023 (Given - Provider: Celine German, JENNYFER) 09 (Given - Provider: Kraley Easton, JENNYFER)2047 (Given - Provider: Gerald Vanessa, [...] Routine 0322 (Given - Provider: Jamil Wallace JENNYFER)1058 (See Alternative - Provider: Alyssa Cruz)1836 (See Alternative - Provider: Karley Easton, JENNYFER) 0604 (See Alternative - Provider: Celine German, RN)2046 (See Alternative - Provider: Gerald Vanessa, RN) 0919 (See Alternative - Provider: Andreea Singleton, RN)1556 (See Alternative - Provider: Andreea Singleton, RN) [...] score)1836 (Given - Provider: Karley Easton RN) 0604 (Given - Provider: Celine German, JENNYFER)2046 (Given [...] Routine documented in this encounter Care Teams Sports Development Officer Relationship Specialty Start Date End Date Trinh Coates MD [address] [place] [address] PCP - General 01/11/10 documented as of this encounter
--- OUTSIDE RECORDS SUMMARY | 2023-09-25 11:47 | XMS_ITS | Encounter Summary ---
Author Organization [facility]ly [facility] Address [facility] [place] [address] Care Team Providers Care Stem Setter Name Role Phone Trinh Coates MD Primary Care Provider [phone] Reason for Visit * Auth/Cert Specialty Diagnoses / Procedures Referred By Diamante t Referred To Contact Diagnoses Malignant neoplasm of upper-outer quadrant of left female breast Estrogen receptor positive status (ER+) hx of breast cancer Procedures PRO REVISE BREAST RECONSTRUCTION PRO REPLACE TISSUE PLUM PACKER PRO SURGERY OF BREAST CAPSULE REVISION OFRECONSTRUCTED BREAST, SUSAN (WRVU 10.41) TISSUE PLUM PACKER REPLACEMENT, WITH PERMANENT PROSTHESIS, SUSAN (WRVU 8.01) BREAST, CAPSULOTOMY, OPEN PERIPROSTHETIC -SUSAN (WRVU 9.17) Referral ID Status Reason Start Date Expiration Date Visits Re quested Visits Authorized [id number] 1 1 Encounter Details Date Type Department Care Team (Late st Contact Info) Description 12/12/2017 3:54 PM EDT Anesthesia Event [place] [address] Carmen Sena MD [facility] [place] [address] Dave Rubi MD [facility] [place] [address] Anesthesia Record Procedure Summary Procedure Name Responsible Anesthesiologist Anesthesia Start Time Anesthesia Stop Time REVISION OFRECONSTRUCTED BREAST, SUSAN (WRVU 11.17) (Bilateral: Trunk) Carmen Sena MD 12/12/17 1554 12/12/17 2043 Events Date Time Event Comment 12/12/2017 1452 1554 AN Verify 1554 Start 1554 An Start Data 1601 An Induction 1606 An Intubation 1616 Anesthesia Ready 1650 Break/Relief In Ermias Correia alex, ARCADE TECHNICIAN 1824 Handoff Intra-procedure anesthesia care was transferred after review of the patient's history, current anesthetic/surgical status and plan, according to the [facility] Provider Handoff Checklist. 1845 Quick Note Pt. [...] 1407; metacarpal vein (top of hand), right; iitt-ial-jnqurg catheter system; 22 gauge, 1 in length; [...] 12/12/17; 1624; other (see comments) (right saphenous); wtfm-riw-qxfnag catheter system; 18 gauge; april teran; 12/12/17; [...] Constanza Corona RN 12/13/17 1606 by Lizbeth Hodges, NEUROPSYCHIATRIC AIDE Incision 12/12/17; 1632; scap nia; 10/17/21 (LDA [...] admission; 01/31/23; 1423 12/12/17 1807 by Constanza Corona RN 01/31/23 1423 by Susana Posadas RN [...] Sena MD - 12/12/2017 10:56 PM EDT [facility] [place] of Anesthesiology Post-procedure Note Patient: Wendy Sandoval Procedure Summary Date: 12/12/17 Room / Location: [address] MAIN OR Anesthesia Start: 1553 Anesthesia Stop: 2042 Procedures: REVISION OFRECONSTRUCTED BREAST, SUSAN (WRVU 10.41) (Bilateral Trunk) @BREAST RECONSTRUCTION W/ LAT DORSI FLAP,W/O IMPLANT, SUSAN (WRVU 23.36) (Bilateral Breast) TISSUE PLUM PACKER REPLACEMENT, WITH PERMANENT PROSTHESIS, SUSAN (WRVU 8.01) (Bilateral Breast) Diagnosis: (hx of breast cancer) Surgeon: Andre Gimenez MD Responsible Provider: Carmen Sena MD Anesthesia Type: general ASA Status: 3 All Anesthesia Providers: Anesthesiologist: Carmen Sena MD; Tino Booker MD ARCADE TECHNICIAN: Poly Galloway CRNA Most Recent Vitals: 12/12/17 2254 BP: (!) 191/108 Pulse: Resp: 18 Temp: 36.7 ??C (98.1 ??F) SpO2: 99% Pain 8 (12/12/17 2313) Patient Location: PACU/[facility] Level of Consciousness: Conscious but Sleepy Pain [...] DORSI FLAP,W/O IMPLANT, SUSAN (WRVU 23.36) TISSUE PLUM PACKER REPLACEMENT, WITH PERMANENT PROSTHESIS, SUSAN (WRVU 8.01) [...] risks discussed with patient. Plan discussed with ARCADE TECHNICIAN. PAT Staff Note documented in this encounter Plan of Treatment Upcoming Encounters Date Type Department Care Team (Late st Contact Info) Description 01/22/2024 10:30 AM EST Appointment Mammography/[place] [address] Ladi Mendosa MD [facility] DR HEMATOLOGY [place] [address] 01/30/2024 11:30 AM EST Office Visit Dermatology at [facility] [address] [place] [address] Nilda Luis MD [facility] [place] [address] 02/14/2024 7:30 AM EST Appointment Radiology at [facility] [place] [place] [address] Joanna Watts MD [facility] [place] [address] documented as of this encounter Visit Diagnoses [...] on Sun12/12/17 at 1554, Until Sun12/12/17 at 204, Anesthesia Intra-op New Bag 12/12/2017 3:54 PM [...] at 1616, Until Sun12/12/17 at 2043, Anesthesia Intra-op New Bag 12/12/2017 4:16 PM EDT documented in this encounter Care Teams Stem Setter Relationship Specialty Start Date End Date Trinh Coates MD [address] [place] [address] PCP - General 01/11/10 documented as of this encounter
--- OUTSIDE RECORDS SUMMARY | 2023-09-25 11:47 | XMS_ITS | Encounter Summary ---
Author Organization On License Of [facility] Address [facility] [place] [address] Care Team Providers Care Orthopedics Teacher Name Role Phone Trinh Coates MD Primary Care Provider [phone] Reason for Visit * Reason Comments Follow Up Surgery s/p bilat expanders Encounter Details Date Type Department Care Team (Late st Contact Info) Description 11/30/2017 11:20 AM EDT Office [place] [address] Jolene Azevedo PIERCING SPECIALIST [facility] [place] [address] Malignant neoplasm of upper-outer quadrant of left [...] Daiana's Wort. May resume 48 hours after surgery, [...] appointment. Feel free to call our office [phone] if you have any nursingquestions or concerns. We monitor the phones from 8-5 Sunday through Sunday. Expect a call from the Same Day Dept the business day before surgery to go over your list of medications and instruct you on arrival time, and when to stop eating and drinking. For questions pertaining to your surgery date or time please call Tawana at [phone]. documented in this encounter Progress Notes * Jolene Azevedo, PIERCING SPECIALIST - 11/30/2017 11:20 AM EDT Plastic Surgery Follow Up Note Date of surgery: 04/26/17 Procedure(s): Bilateral breast reconstruction with attempted SALVADOR flaps, eventual tissue dental aide placement with [place] Artoura 600 cc expanders placed bilaterally and filled with 450 cc of methyleneblue impregnated saline.) Complications: right parietal and visceral pleural tear, arterial flap failure bilaterally Date of surgery: 06/22/17 Procedure(s) left breast wound debridement, excision and closure. Debridement of umbilicus. Deflation of dental aide volume, This leaves 450 cc in the left tissue dental aide and 500 cc on the right side [...] with exchange to permanent implants, capsulotomies CPT: 75854, 85014, 35275 Surgical site: Breasts Side: Fredo Anesthesia: General Follow up: 10-14 Days AEE when JN in clinic PAT: No Implants needed: 3x [id number] 350CC 12.3 [id number] 370CC 12.6 RSZ-[id number] 405CC 12.7 [id number] [id number] 440CC 13.1 RSZ-[id number] 465CC 13.3 RSZ-[id number] 490CC 13.6 [id number] 525CC 13.9 RSZ-[id number] 545CC 14 RSZ-[id number] 560CC 14.3 RSZ-[id number] 605CC 14.5 [id number]-[id number] I, Nimo Llamas, have performed the documentation [...] 01/22/2024 10:30 AM EST Appointment Mammography/[place] [address] Ladi Mendosa MD [facility] [place] [address] 01/30/2024 11:30 AM EST Office Visit Dermatology at [place] [address] [place] [phone] Nilda Luis MD [facility] [place] [address] 02/14/2024 7:30 AM [place] [address] Joanna Watts MD [facility] [place] [address] documented as of this encounter Procedures Procedure Name Priority Date/Time Associated Diagnosis Comments REVISION, RECONSTRUCTED BREAST, FREDO Routine 11/30/2017 11:26 AM EDT documented in this encounter Results * APTT (11/30/2017 10:29 AM EDT) Partial Thromboplastin Time 33 25 - 37 sec [facility] Comment: The PTT is NOT appropriate for heparin monitoring. Use the Anti-Xa level for heparin monitoring (HEP UFH) or LMWH monitoring (HEP LMW). A PTT less than 37 seconds generally indicates adequate hemostasis. Blood specimen (specimen) 11/30/2017 10:29 AM EDT 11/30/2017 10:45 AM EDT Narrative Resulting Agency Comment Spec In Lab Jolene Azevedo APRN HEMATOLOGY ORDERABLE S Performing Organization Address [facility] Co de Phone Number [facility] [place] [address] * Prothrombin Time (11/30/2017 10:29 AM EDT) Prothrombin Time 12.3 9.4 - 12.5 sec [facility] International Normalization Ratio 1.1 [facility] Comment: An INR <2.0 indicates adequate [...] APRN HEMATOLOGY ORDERABLE S Performing Organization Address City/[facility] [place] [address] documented in this encounter Visit Diagnoses Diagnosis Malignant neoplasm of upper-outer quadrant of left breast in female, estrogen receptor positive documented in this encounter Care Teams Orthopedics Teacher Relationship Specialty Start Date End Date Trinh Coates MD [address] [place] [address] PCP - General 01/11/10 documented as of this encounter
--- OUTSIDE RECORDS SUMMARY | 2023-09-25 11:47 | XMS_ITS | Encounter Summary ---
Author Organization [place] [address] Care Team Providers Care Investment Consultant Name Role Phone Trinh Coates MD Primary Care Provider [phone] Encounter Details Date Type Department Care Team (Latest Contact Info) Description 12/05/2017 9:30 AM EDT - 12/05/2017 11:59 PM EDT Hospital Encounter [place] [address] Malignant neoplasm of upper-outer quadrant of left [...] 01/22/2024 10:30 AM EST Appointment Mammography/[place] [phone] [facility] [address] [place] [address] 01/30/2024 11:30 AM EST Office Visit Dermatology at [place] [address] [place] [phone] Nilda Luis MD [facility] [address] 02/14/2024 7:30 AM [place] [phone] [facility] [place] [address] documented as of this encounter Procedures Procedure [...] estrogen receptor positive COMPREHENSIVE METABOLIC PANEL STAT 12/05/2017 10:24 AM EDT Malignant neoplasm of upper-outer quadrant of left breast in female, estrogen receptor positive documented in this encounter Results * (ABNORMAL) Differential, Automated (12/05/2017 10:24 AM EDT) Neutrophil % 70.1 % [facility] Neutrophil Absolute 7.54(H) 1.70 - 6.10 x10(3)/mc L [facility] Lymph % 13.0 % [facility] Lymphocytes Abs 1.4 0.9 - 3.2 x10(3)/mc L [facility] Monocyte % 11.1 % [facility] Monocyte Abs 1.2(H) 0.3 - 0.9 x10(3)/mc L [facility] Eos % 3.5 % [facility] Eosinophils Abs 0.4 0.0 - 0.4 x10(3)/mc L [facility] Basophil % 1.2 % [facility] Baso Absolute 0.1 0.0 - 0.1 x10(3)/mc L [facility] Immature Gran % 1.10 % [facility] Comment: Immature granulocytes(IG's)percentage and absolute count will include metamyelocytes, myelocytes, and promyelocytes. Blood smears from CBCs yielding IG's will be scanned manually for concordance. If this scan disagrees with the automated IG or if promyelocytes are noted, a manual differential will be performed. Immature Gran Absolute 0.12(H) 0.00 - 0.04 x10(3)/mc L [facility] Blood specimen (specimen) 12/05/2017 10:24 AM EDT 12/05/2017 10:38 AM EDT Narrative Resulting Agency Comment Spec In Lab Sally Mendezjayme [facility]EMAT[facility] ORDERABL ES Performing Organization Address City/[facility]/ZIP [place] [address] * (ABNORMAL) Hemogram (12/05/2017 10:24 AM EDT) White Blood Cell 10.8(H) 4.0 - 9.5 x10(3)/mc L [facility] Red Blood Cell 3.22(L) 4.00 - 5.21 x10(6)/mc L [facility] Hemoglobin 10.1(L) 11.7 - 15.5 gm/dL [facility] Hematocrit 31.2(L) 35.7 - 45.8 % [facility] Mean Cell Volume 96.9(H) 82.6 - 94.4 fL [facility] Mean Cell Hemoglobin 31.4 27.1 - 32.0 pg [facility] Mean Cell Hemoglobin Concentration 32.4 31.7 - 35.0 gm/dL [facility] Platelet 403(H) 145 - 357 x10(3)/mc L [facility] RDW Standard Deviation 54.4(H) 37.0 - 46.0 fL [facility] RDW coefficient of variation 15.4(H) 11.5 - 14.1 % [facility] Mean Platelet Volume 8.6 7.6 - 12.9 fL [facility] NRBC% auto 0.0 % [facility] NRBC Absolute 0.000 0.000 - 0.000 x10(3)/mc L [facility] Blood specimen (specimen) 12/05/2017 10:24 AM EDT 12/05/2017 10:38 AM EDT Narrative Resulting Agency Comment Spec In Lab Sally Leach Gela [facility] HEMATOLOG[facility] ORDERABL ES [facility] [place] [place] [address] * (ABNORMAL) Comprehensive metabolic panel (non-fasting) (12/05/2017 10:24 AM EDT) Glucose 118 65 - 199 mg/dL [facility] Comment:Diabetes: >=200 mg/d L plus symptoms Blood Urea Nitrogen 12 8 - 18 mg/dL [facility] Creatinine 0.89 0.70 - 1.20 mg/dL [facility] Sodium 145 135 - 145 mmol/L [facility] Potassium 3.5 3.5 - 5.0 mmol/L [facility] Comment: Please note: ??Patients with WBC >100,000 may have falsely elevated Potassium levels. ??For accurate Potassium quantification in these patients send serum separator tube (gold top) for subsequent determinations. ??Contact the Clinical Chemistry Laboratory if there are any questions. Chloride 105 98 - 107 mmol/L [facility] Carbon Dioxide 25 22 - 31 mmol/L [facility] Anion Gap 15 5 - 15 mmol/L [facility] Calcium 9.1 8.5 - 10.5 mg/dL [facility] Protein, Total 6.6 6.1 - 8.0 gm/dL [facility] Albumin 3.9 3.2 - 5.2 gm/dL [facility] Aspartate Aminotransferase 15 0 - 30 unit/L [facility] Alanine Aminotransferase 18 0 - 30 unit/L [facility] Alkaline Phosphatase 122(H) 40 - 104 unit/L [facility] Bilirubin, Total 0.2 0.2 - 1.3 mg/dL [facility] Est Glomerular Filtration Rate 73 >=60 mL/min/1. 73 m?? [facility] Comment: The eGFR was calculated using the CKD-EPI equation. As with all creatinine based estimates of kidney function, eGFR values calculated with the CKD-EPI equation are not accurate in patients with acute kidney failure, extremes of body mass or the acutely ill. [email or web address] eGFR 85 >=60 mL/min/1. 73 m?? [facility] Comment: The eGFR was calculated using the CKD-EPI equation. As with all creatinine based estimates of kidney function, eGFR values calculated with the CKD-EPI equation are not accurate in patients with acute kidney failure, extremes of body mass or the acutely ill. [email or web address] Blood specimen (specimen) 12/05/2017 10:24 AM EDT 12/05/2017 10:38 AM EDT Narrative Resulting Agency Comment Spec In Lab Sally Ren SOAP TENDER CHEMISTRY ORDERABLE S [facility] [place] [address] documented in this encounter Visit Diagnoses Diagnosis [...] dose, Starting on Sun12/05/17 at 1011, Until Sun12/05/17 at 1025, Line Care, Dormant flush every [...] mLs documented in this encounter Care Teams Investment Consultant Relationship Specialty Start Date End Date Trinh Coates MD [address] [place] [address] PCP - General 01/11/10 documented as of this encounter
--- OUTSIDE RECORDS SUMMARY | 2023-09-25 11:47 | XMS_ITS | Encounter Summary ---
Author Organization [facility] Address [facility] [place] [address] Care Team Providers Care Mirror Maker Name Role Phone Trinh Coates MD Primary Care Provider [phone] Reason for Visit * Reason Comments Follow-up Encounter Details Date Type Department Care Team (Late st Contact Info) Description 11/15/2017 11:00 AM EDT Office Visit Hematology [place] [address] Sally Ren APRN [facility] [place] [address] Malignant neoplasm of upper-outer quadrant of left [...] this encounter Progress Notes * Sally Ren, SENIOR MICROSOFT CONSULTANT - 11/15/2017 11:00 AM EDT Subjective: Patient [...] left chest. No axillary adenopathy bilaterally. Left reconstruction/chief fundraising officer larger than right. Abdominal: Soft. Bowel sounds [...] fairly large seroma behind her left breast chief fundraising officer. Drain remains in place and she is [...] a radiation follow up for her in [facility]. She will likely start this one month after her surgery. She will follow up in one month with Dr. Barnett. All questions answered. Sally Ren APRN documented in this encounter Plan of Treatment Upcoming Encounters Date Type Department Care Team (Late Contact Info) Description 01/22/2024 10:30 AM EST Appointment Mammography/[place] [phone] Ladi Mendosa MD [facility] [place]ATOLOG[place] [address] 01/30/2024 11:30 AM EST Office Visit Dermatology at [address] [address] Nilda Luis MD [facility] [place] [address] 02/14/2024 7:30 AM EST Appointment [place] [phone] Joanna Watts MD [facility] [place] [address] documented as of this encounter Results * (ABNORMAL) Comprehensive metabolic panel (non-fasting) (12/05/2017 10:24 AM EDT) Glucose 118 65 - 199 mg/dL [facility] Comment:Diabetes: >=200 mg/d L plus symptoms Blood Urea Nitrogen 12 8 - 18 mg/dL [facility] Creatinine 0.89 0.70 - 1.20 mg/dL [facility] Sodium 145 135 - 145 mmol/L [facility] Potassium 3.5 3.5 - 5.0 mmol/L [facility] Comment: Please note: ??Patients with WBC >100,000 may have falsely elevated Potassium levels. ??For accurate Potassium quantification in these patients send serum separator tube (gold top) for subsequent determinations. ??Contact the Clinical Chemistry Laboratory if there are any questions. Chloride 105 98 - 107 mmol/L [facility] Carbon Dioxide 25 22 - 31 mmol/L [facility] Anion Gap 15 5 - 15 mmol/L [facility] Calcium 9.1 8.5 - 10.5 mg/dL [facility] Protein, Total 6.6 6.1 - 8.0 gm/dL [facility] Albumin 3.9 3.2 - 5.2 gm/dL [facility] Aspartate Aminotransferase 15 0 - 30 unit/L [facility] Alanine Aminotransferase 18 0 - 30 unit/L [facility] Alkaline Phosphatase 122(H) 40 - 104 unit/L [facility] Bilirubin, Total 0.2 0.2 - 1.3 mg/dL [facility] Est Glomerular Filtration Rate 73 >=60 mL/min/1. 73 m?? [facility] Comment: The eGFR was calculated using the CKD-EPI equation. As with all creatinine based estimates of kidney function, eGFR values calculated with the CKD-EPI equation are not accurate in patients with acute kidney failure, extremes of body mass or the acutely ill. http://[email or web address] eGFR 85 >=60 mL/min/1. 73 m?? [facility] Comment: The eGFR was calculated using the CKD-EPI equation. As with all creatinine based estimates of kidney function, eGFR values calculated with the CKD-EPI equation are not accurate in patients with acute kidney failure, extremes of body mass or the acutely ill. [email or web address] Blood specimen (specimen) 12/05/2017 10:24 AM EDT 12/05/2017 10:38 AM EDT Narrative Resulting Agency Comment Spec In Lab Sally Haylee Ren SENIOR MICROSOFT CONSULTANT CHEMISTRY ORDERABLE S Performing Organization Address City/State/[facility] Co de Phone Number [facility] [place] [address] documented in this encounter Visit Diagnoses Diagnosis Malignant neoplasm of upper-outer quadrant of left breast in female, estrogen receptor positive documented in this encounter Care Teams Mirror Maker Relationship Specialty Start Date End Date Trinh Coates MD [address] [place] [address] PCP - General 01/11/10 documented as of this encounter
--- OUTSIDE RECORDS SUMMARY | 2023-09-25 11:47 | XMS_ITS | Encounter Summary ---
Author Organization [facility] Address [facility] [place] [address] Care Team Providers Care Document Management Analyst Name Role Phone Trinh Coates MD Primary Care Provider [phone] Encounter Details Date Type Department Care Team (Late st Contact Info) Description 10/23/2017 Notes Only Hematology [place] [address] Josias Barnett MD [facility] DR HEMATOLOGY/[place] [address] Social History Tobacco Use Types Packs/Day Years [...] 01/22/2024 10:30 AM EST Appointment Mammography/[place] [address] Ladi Mendosa MD [facility] [place]OLOGY [place] [address] 01/30/2024 11:30 AM EST Office Visit Dermatology at [place] [address] [place] [phone] Nilda Luis MD [facility] [place] [address] 02/14/2024 7:30 AM EST Appointment Radiology at [place] [phone] Joanna aWtts MD [facility] [place] [address] documented as of this encounter Visit Diagnoses Not on filedocumented in this encounter Care Teams Document Management Analyst Relationship Specialty Start Date End Date Trinh Coates MD [facility] [address] [place] [address] PCP - General 01/11/10 documented as of this encounter
--- OUTSIDE RECORDS SUMMARY | 2023-09-25 11:47 | XMS_ITS | Encounter Summary ---
Author Organization [facility] [place] [address] Care Team Providers Care Studio Grip Name Role Phone Trinh Coates MD Primary Care Provider [phone] Reason for Referral * Diagnostic Test (Routine) - Closed Specialty Diagnoses / Procedures Referred By Diamante marin Referred To Contact Radiology Diagnoses Malignant neoplasm of upper-outer quadrant of left breast in female, estrogen receptor positive Procedures IR Mediport Removal Piter Barnett MD [facility] DR HEMATOLOGY/[place] [address] [facility] [place] [address] Referral ID Status Reason Start Date Expiration Date V isits Requested Visits Authorized [id number] Closed Specialty Service Requested 01/07/2018 01/07/2019 1 1 Encounter Details Date Type Department Care Team (Late st Contact Info) Description 12/05/2017 10:30 AM EDT Office Visit Hematology [place] [address] Piter Barnett MD [facility] HEMATOLOGY/[place] [address] Malignant neoplasm of upper-outer quadrant [...] 2.0 cm cancer, high-grade, grade 3. ER/[place] +++, HER-2/pat negative, 4/18 nodes (1/18 additional [...] PMH of high-grade, node-positive left breast cancer ER+/[place]+/HER2- (dx 03/2017, s/p bilateral mastectomy) who completed [...] months Abby Stevenson MD Hematology/Oncology Fellow Pager #[phone] 12/05/17 * Piter Barnett MD - 12/05/2017 [...] EST Appointment Mammography/[place] [address] Ladi Mendosa MD [facility] [place] [address] 01/30/2024 11:30 AM EST Office Visit Dermatology at [address] [phone] Nilda Luis MD [facility] [place] [address] 02/14/2024 7:30 AM EST Appointment [place] [address] Joanna Watts MD [facility] [place] [address] documented as of this encounter Results * [...] positive documented in this encounter Care Teams Studio Grip Relationship Specialty Start Date End Date Trinh Coates MD [address] [place] [address] PCP - General 01/11/10 documented as of this encounter
--- OUTSIDE RECORDS SUMMARY | 2023-09-25 11:47 | XMS_ITS | Encounter Summary ---
Author Organization [facility] Address [facility] [place] [address] Care Team Providers Care Third Officer Name Role Phone Trinh Coates MD Primary Care Provider [phone] Encounter Details Date Type Department Care Team (Late st Contact Info) Description 10/19/2017 Orders Only Hematology [place] [phone] Sally Ren APRN [facility] [place] [address] Social History Tobacco Use Types Packs/Day Years [...] 01/22/2024 10:30 AM EST Appointment Mammography/[place] [address] Ladi Mendosa MD [facility] [place] [address] 01/30/2024 11:30 AM EST Office Visit Dermatology at [facility] [address] [place] [address] Nilda Luis MD [facility] [place] [address] 02/14/2024 7:30 AM EST [place] [phone] Joanna Watts MD [facility] [place] [address] documented as of this encounter Visit Diagnoses Not on filedocumented in this encounter Care Teams Third Officer Relationship Specialty Start Date End Date Trinh Coates MD [facility] [address] [address] PCP - General 01/11/10 documented as of this encounter
--- OUTSIDE RECORDS SUMMARY | 2023-09-25 11:47 | XMS_ITS | Encounter Summary ---
Author Organization [facility] Address [facility] [place] [address] Care Team Providers Care Tappet Adjuster Name Role Phone Trinh Coates MD Primary Care Provider [phone] Reason for Visit * Reason Comments Follow Up Surgery f/u breast recon, dr knight check Encounter Details Date Type Department Care Team (Late st Contact Info) Description 11/01/2017 9:20 AM EDT Office [place] [address] Jolene Azevedo APRN [facility] [place] [address] S/P breast reconstruction, bilateral Social History Tobacco [...] reconstruction with attempted SALVADOR flaps, eventual tissue production controller placement with Acme Artoura 600 cc expanders placed bilaterally and filled with 450 cc of methyleneblue impregnated saline.) Complications: right parietal and visceral pleural tear, arterial flap failure bilaterally Date of surgery: 06/22/17 Procedure(s) left breast wound debridement, excision and closure. Debridement of umbilicus. Deflation of production controller volume, This leaves 450 cc in the left tissue production controller and 500 cc on the right side [...] 01/22/2024 10:30 AM EST Appointment Mammography/[place] [address] Ladi Mendosa MD [facility] [place] [address] 01/30/2024 11:30 AM EST Office Visit Dermatology at [facility] [address] [place] [address] Nilda Luis MD [facility] [place] [address] 02/14/2024 7:30 AM EST [place] [phone] Joanna Watts MD [facility] [place] [address] documented as of this encounter Visit Diagnoses Diagnosis S/P breast reconstruction, bilateral Breast replaced by other means documented in this encounter Care Teams Tappet Adjuster Relationship Specialty Start Date End Date Trinh Coates MD [facility] [address] [facility] [place] [address] PCP - General 01/11/10 documented as of this encounter
--- OUTSIDE RECORDS SUMMARY | 2023-09-25 11:47 | XMS_ITS | Encounter Summary ---
Author Organization [facility] Address [facility] [place] [address] Care Team Providers Care Nurse Extern Name Role Phone Trinh Coates MD Primary Care Provider [phone] Reason for Referral * Physical Therapy (Routine) - Specialty Diagnoses / Procedures Referred By Diamante marin Referred To Contact Physical Therapy Diagnoses Malignant neoplasm of upper-outer quadrant of left breast in female, estrogen receptor positive Josias Barnett MD [facility] DR HEMATOLOGY/[place] [address] Referral ID Status Reason Start Date Expiration Date V isits Requested Visits Authorized [id number] Evaluate and Treat 11/01/2017 04/30/2018 12 12 Encounter Details Date Type Department Care Team (Late st Contact Info) Description 11/01/2017 11:00 AM EDT Office Visit Hematology [place] [address] Josias Barnett MD [facility] HEMATOLOGY/[place] [address] Malignant neoplasm of upper-outer quadrant of left [...] seen here. Had visits to ER up [place], with fatigue, dehydration and K=2.7. Feeing better [...] Patient prefers to receive therapy closer to [place], [place]. RN Placed call to [facility] PT department ([phone]), who confirmed they do havea lymphedema certified physical therapist. RN will notify secretaries to set up referral. [facility] PT . documented in this encounter Plan of Treatment Upcoming Encounters Date Type Department Care Team (Late st Contact Info) Description 01/22/2024 10:30 AM EST Appointment Mammography/[place] [phone] Ladi Mendosa MD [facility] HEMATOLOGY [place] [address] 01/30/2024 11:30 AM EST Office Visit Dermatology at [address] [phone] Nilda Luis MD [facility] [place] [address] 02/14/2024 7:30 AM EST [place] [address] Joanna Watts MD [facility] [place] [address] Scheduled Referrals Name Type Priority Associated Diagnoses Orde r Schedule Referral to Physical Therapy Outpatient Referral Routine Malignant neoplasm of upper-outer quadrant of left breast in female, estrogen receptor positive Ordered: 11/01/2017 documented as of this encounter Visit Diagnoses Diagnosis Malignant neoplasm of upper-outer quadrant of left breast in female, estrogen receptor positive documented in this encounter Care Teams Nurse Extern Relationship Specialty Start Date End Date Trinh Coates MD [address] [place] [address] PCP - General 01/11/10 documented as of this encounter
--- OUTSIDE RECORDS SUMMARY | 2023-09-25 11:48 | XMS_ITS | Encounter Summary ---
Author Organization [facility] [place] [address] Care Team Providers Care Field Laboratory Operator Name Role Phone Trinh Coates MD Primary Care Provider [phone] Reason for Visit * Reason Onset Date Comments Diarrhea 09/10/2017 Encounter Details Date Type Department Care Team (Late st Contact Info) Description 09/10/2017 Telephone Hematology [place] [address] Elisa Abbott RN Diarrhea Social [...] 09/10/2017 11:33 AM EDT Message received from grain operator: Update on patients diarrhea still has it, [...] 01/22/2024 10:30 AM EST Appointment Mammography/DXA at [place] [phone] Ladi Mendosa MD [facility] [place] [address] 01/30/2024 11:30 AM EST Office Visit Dermatology at [address] [address] Nilda Luis MD [facility] [place] [address] 02/14/2024 7:30 AM EST [place] [address] Joanna Watts MD [facility] [place] [address] documented as of this encounter Visit Diagnoses Not on filedocumented in this encounter Care Teams Field Laboratory Operator Relationship Specialty Start Date End Date Trinh Coates MD [address] [place] [address] PCP - General 01/11/10 documented as of this encounter
--- OUTSIDE RECORDS SUMMARY | 2023-09-25 11:48 | XMS_ITS | Encounter Summary ---
Author Organization [facility] Address [facility] [place] [address] Care Team Providers Care Meat Counter Clerk Name Role Phone Trinh Coates MD Primary Care Provider [phone] Reason for Visit * Reason Comments Chemotherapy [...] TC PEGFILGRASTIM, 6MG, INJECTION Gustavo Mota MD [facility] DR HEMATOLOGY/[place] [address] [facility] Infusion [address] [place] [address] Referral ID Status Reason Start Date Expiration Date Visits Re quested Visits Authorized [id number] Closed 07/02/2017 07/02/2018 12 12 Encounter Details Date Type Department Care Team (Latest Contact Info) Description 09/20/2017 8:47 AM EDT - 09/20/2017 11:59 PM EDT Hospital Encounter Hematology [place] [address] Malignant neoplasm of upper-outer quadrant [...] q 6 hrs daily as needed 11/15/2015 cholecalciferol, Vitamin D3, 125 mcg (5,000 unit) [...] 1 CAP daily 03/27/2014 024 potassium chloride 20 mEq Tablet Sustained Release 1 tablet daily. 0 09/17/2017 07/12/2020 amoxicillin-clavulana te (AUGMENTIN) 875-125 mg TabletIndications:S/P breast [...] 1 tablet by mouth daily. 02/20/2017 10/10/2017 atorvastatin (LIPITOR) 20 mg Tablet Take 1 [...] 01/22/2024 10:30 AM EST Appointment Mammography/[place] [address] Ladi Mendosa MD [facility] [place] [address] 01/30/2024 11:30 AM EST Office Visit Dermatology at [place] [address] [place] [address] Nilda Luis MD [facility] [place] [address] 02/14/2024 7:30 AM EST Appointment [place] [address] Joanna Watts MD [facility] [place] [address] documented as of this encounter Visit Diagnoses [...] 2 minutes is a recommendation from the helicopter mechanic., Routine Given 09/20/2017 12:26 PM EDT 130 [...] Job Aid: Adult Flushing & Catheter Care (4284) job aid for additional information regarding guidelines [...] mg documented in this encounter Care Teams Meat Counter Clerk Relationship Specialty Start Date End Date Trinh Coates MD [address] [place] [address] PCP - General 01/11/10 documented as of this encounter
--- OUTSIDE RECORDS SUMMARY | 2023-09-25 11:48 | XMS_ITS | Encounter Summary ---
Author Organization [facility] Address [facility] [place] [address] Care Team Providers Care Whale Fisherman Name Role Phone Trinh Coates MD Primary Care Provider [phone] Encounter Details Date Type Department Care Team (Late st Contact Info) Description 10/03/2017 Orders Only Hematology [place] [address] Josias Barnett MD [facility] DR HEMATOLOGY/[place] [address] Social History Tobacco Use Types Packs/Day Years [...] AM EST Appointment Mammography/[place] [address] Ladi Mendosa MD [facility] DR HEMATOLOGY [place] [address] 01/30/2024 11:30 AM EST Office Visit Dermatology at [facility] [address] [place] [address] Nilad Luis MD [facility] [place] [address] 02/14/2024 7:30 AM EST [place] [phone] Joanna Watts MD [facility] [place] [address] documented as of this encounter Visit Diagnoses Not on filedocumented in this encounter Care Teams Whale Fisherman Relationship Specialty Start Date End Date Trinh Coates MD [facility] [address] [address] PCP - General 01/11/10 documented as of this encounter
--- OUTSIDE RECORDS SUMMARY | 2023-09-25 11:48 | XMS_ITS | Encounter Summary ---
Author Organization [facility] [place] [address] Care Team Providers Care Mat Gauger Name Role Phone Trinh Coates MD Primary Care Provider [phone] Reason for Visit * Reason Comments Breast Cancer Chemotherapy * Treatment/Therapy Plan Authorization (Routine) - Closed Specialty Diagnoses / Procedures Referred By Diamante marin Referred To Contact Diagnoses Malignant neoplasm of upper-outer quadrant of left breast in female, estrogen receptor positive Procedures TC PACLITAXEL, 1MG, INJ TC PEGFILGRASTIM, 6MG, INJECTION Josias Barnett MD [facility] DR HEMATOLOGY/[place] [address] [facility] Hem Onc [address] [place] [address] Referral ID Status Reason Start Date Expiration Date Visits Re quested Visits Authorized [id number] Closed 10/01/2017 10/01/2018 21 21 Encounter Details Date Type Department Care Team (Latest Contact Info) Description 10/04/2017 7:20 AM EDT - 10/04/2017 11:59 PM EDT Hospital Encounter [place] [address] Malignant neoplasm of upper-outer quadrant [...] Release 1 tablet daily. 0 09/17/2017 07/12/2020 cephalexin (KEFLEX) 500 mg Capsule Take 1 [...] 01/22/2024 10:30 AM EST Appointment Mammography/[place] [address] Ladi Mendosa MD [facility] [place] [address] 01/30/2024 11:30 AM EST Office Visit Dermatology at [address] [place] [address] Nilda Luis MD [facility] [place] [address] 02/14/2024 7:30 AM EST Appointment Radiology at [place] [phone] Joanna Watts MD [facility] [place] [address] documented as of this encounter Visit Diagnoses [...] Job Aid: Adult Flushing & Catheter Care (5840) job aid for additional information regarding guidelines and administration., Routine Given 10/04/2017 3:02 PM EDT 500 Units LORazepam (ATIVAN) injection 0.5 mg 0.5 mg, Intravenous, EVERY 4 HOURS PRN, Starting on Sosa 10/04/17 at 1154, Until Ossa 10/04/17 at 2353, Anxiety, Nausea, Vomiting, If multiple [...] Arm documented in this encounter Care Teams Mat Gauger Relationship Specialty Start Date End Date Trinh Coates MD [facility] [address] [place] [address] PCP - General 01/11/10 documented as of this encounter
--- OUTSIDE RECORDS SUMMARY | 2023-09-25 11:48 | XMS_ITS | Encounter Summary ---
Author Organization [facility] Address [facility] [place] [address] Care Team Providers Care Loan Consultant Name Role Phone Trinh Coates MD Primary Care Provider [phone] Reason for Visit * Reason Comments Follow Up Surgery check breast drain Encounter Details Date Type Department Care Team (Late st Contact Info) Description 10/10/2017 10:20 AM EDT Office [place] [address] Jolene Azevedo APRN [facility] [place] [address] Surgery follow-up Social History Tobacco Use Types [...] reconstruction with attempted SALVADOR flaps, eventual tissue computer technology trainer placement with [place] Artoura 600 cc expanders placed bilaterally and filled with 450 cc of methyleneblue impregnated saline.) Complications: right parietal and visceral pleural tear, arterial flap failure bilaterally Date of surgery: 06/22/17 Procedure(s) left breast wound debridement, excision and closure. Debridement of umbilicus. Deflation of computer technology trainer volume, This leaves 450 cc in the left tissue computer technology trainer and 500 cc on the right side Chemotherapy: yes Radiation: yes Anticipated timeline: chemotherapy completion, when recovered will have expanders removed and permanent implants placed, approximately 3 weeks later will begin radiation. HPI: Pt reports that she has been okay. She has been feeling weird and reports facial numbness. She was seen in the ED at [facility] where she was treated by Dr. [...] 01/22/2024 10:30 AM EST Appointment Mammography/DXA at [place] [phone] Ladi Mendosa MD [facility] [place] [address] 01/30/2024 11:30 AM EST Office Visit Dermatology at [address] [address] Nilda Luis MD [facility] [place] [address] 02/14/2024 7:30 AM EST Appointment Radiology at [place] [phone] Joanna Watts MD [facility] [place] [address] documented as of this encounter Visit Diagnoses Diagnosis Surgery follow-up Follow-up examination, following unspecified surgery documented in this encounter Care Teams Loan Consultant Relationship Specialty Start Date End Date Trinh Coates MD [facility] [address] [place] [address] PCP - General 01/11/10 documented as of this encounter
--- OUTSIDE RECORDS SUMMARY | 2023-09-25 11:48 | XMS_ITS | Encounter Summary ---
Author Organization [facility] Address [facility] [place] [address] Care Team Providers Care Information Services Assistant Name Role Phone Trinh Coates MD Primary Care Provider [phone] Reason for Visit * Reason Comments Follow-up Encounter Details Date Type Department Care Team (Latest Contact Info) Description 09/06/2017 1:00 PM EDT Office Visit [place] [address] Sally Ren APRN [facility] [place] [address] Malignant neoplasm of upper-outer quadrant of left [...] this encounter Progress Notes * Sally Ren, ELECTRICIAN HELPER AUTOMOTIVE - 09/06/2017 1:00 PM EDT Subjective: Patient [...] fairly large seroma behind her left breast bellhop. She had a drain put in in [...] 01/22/2024 10:30 AM EST Appointment Mammography[place] [address] Ladi Mendosa MD [facility] HEMATOLOGY [place] [address] 01/30/2024 11:30 AM EST Office Visit Dermatology at [facility] [address] [place] [phone] Nilda Luis MD [facility] [place] [address] 02/14/2024 7:30 AM [place] [address] Joanna Watts MD [facility] [place] [address] documented as of this encounter Visit Diagnoses Diagnosis Malignant neoplasm of upper-outer quadrant of left breast in female, estrogen receptor positive Bacterial conjunctivitis Other conjunctivitis documented in this encounter Care Teams Information Services Assistant Relationship Specialty Start Date End Date Trinh Coates MD [address] [place] [address] PCP - General 01/11/10 documented as of this encounter
--- OUTSIDE RECORDS SUMMARY | 2023-09-25 11:48 | XMS_ITS | Encounter Summary ---
Author Organization [place] [address] Care Team Providers Care Home Health Specialist Name Role Phone Trinh Coates MD Primary Care Provider [phone] Reason for Visit * Reason Comments Follow Up Surgery f/u expanders Encounter Details Date Type Department Care Team (Late st Contact Info) Description 09/06/2017 9:15 AM EDT Office [place] [address] Andre Gimenez MD [facility] [place] [address] S/P breast reconstruction, bilateral; Seroma of breast [...] reconstruction with attempted SALVADOR flaps, eventual tissue event planner placement with [place] Artoura 600 cc expanders placed bilaterally and filled with 450 cc of methyleneblue impregnated saline.) Complications: right parietal and visceral pleural tear, arterial flap failure bilaterally Date of surgery: 06/22/17 Procedure(s) left breast wound debridement, excision and closure. Debridement of umbilicus. Deflation of event planner volume, This leaves 450 cc in the left tissue event planner and 500 cc on the right side [...] 01/22/2024 10:30 AM EST Appointment Mammography/[place] [address] Ladi Mendosa MD [facility] [place] [address] 01/30/2024 11:30 AM EST Office Visit Dermatology at [facility] [address] [place] [address] Nilda Luis MD [facility] [place] [address] 02/14/2024 7:30 AM EST [place] [address] Joanna Watts MD [facility] [place] [address] documented as of this encounter Results * [...] breast documented in this encounter Care Teams Home Health Specialist Relationship Specialty Start Date End Date Trinh Coates MD [facility] [address] [place] [address] PCP - General 01/11/10 documented as of this encounter
--- OUTSIDE RECORDS SUMMARY | 2023-09-25 11:48 | XMS_ITS | Encounter Summary ---
Author Organization [facility] Address [facility] [place] [address] Care Team Providers Care Perpetual Inventory Clerk Name Role Phone Trinh Coates MD Primary Care Provider [phone] Reason for Visit * Treatment/Therapy Plan Authorization (Routine) - Closed Specialty Diagnoses / Procedures Referred By Diamante marin Referred To Contact Hematology and Oncology Diagnoses Malignant neoplasm of upper-outer quadrant of left breast in female, estrogen receptor positive Procedures TC PALONOSETRON HCL, 25MCG, INJECTION (ALOXI) TC DOXORUBICIN HCL, 10MG, INJECTION (ADRIAMYCIN) TC CYCLOPHOSPHAMIDE, 100MG (CYTOXAN) TC PEGFILGRASTIM, 6MG, INJECTION Gustvao Mota MD [facility] DR HEMATOLOGY/[place] [address] [address] Referral ID Status Reason Start Date Expiration Date Visits Re quested Visits Authorized [id number] Closed 07/02/2017 07/02/2018 12 12 Encounter Details Date Type Department Care Team (Latest Contact Info) Description 08/23/2017 10:09 AM EDT - 08/23/2017 11:59 PM EDT Hospital Encounter [place] [address] Malignant neoplasm of upper-outer quadrant [...] 01/22/2024 10:30 AM EST Appointment Mammography[place] [address] Ladi Mendosa MD [facility] DR [place] [address] 01/30/2024 11:30 AM EST Office Visit Dermatology at [facility] [address] [place] [address] Nilda Luis MD [facility] [place] [address] 02/14/2024 7:30 AM [place] [address] Joanna Watts MD [facility] [place] [address] documented as of this encounter Procedures Procedure [...] estrogen receptor positive COMPREHENSIVE METABOLIC PANEL STAT 08/23/2017 10:35 AM EDT Malignant neoplasm of upper-outer quadrant of left breast in female, estrogen receptor positive documented in this encounter Results * Scan, Peripheral Blood (08/23/2017 10:35 AM EDT) Plat estimate Increased [facility] RBC Morphology Normal [facility] Blood specimen (specimen) 08/23/2017 10:35 AM EDT 08/23/2017 10:54 AM EDT Narrative Resulting Agency Comment Spec In Lab Gustavo Mota MD HEMATOLOGY ORDERABLE S [facility] [place] [address] * (ABNORMAL) Differential, Automated (08/23/2017 10:35 AM EDT) Neutrophil % 70.0 % [facility] Neutrophil Absolute 11.42(H) 1.70 - 6.10 x10(3)/mc L [facility] Lymph % 7.6 % [facility] Lymphocytes Abs 1.2 0.9 - 3.2 x10(3)/mc L [facility] Monocyte % 8.0 % [facility] Monocyte Abs 1.3(H) 0.3 - 0.9 x10(3)/mc L [facility] Eos % 2.5 % [facility] Eosinophils Abs 0.4 0.0 - 0.4 x10(3)/ L [facility] Basophil % 1.4 % [facility] Baso Absolute 0.2(H) 0.0 - 0.1 x10(3)/ L [facility] Immature Gran % 10.50 % [facility] Comment: Immature granulocytes(IG's)percentage and absolute count will include metamyelocytes, myelocytes, and promyelocytes. Blood smears from CBCs yielding IG's will be scanned manually for concordance. If this scan disagrees with the automated IG or if promyelocytes are noted, a manual differential will be performed. Immature Gran Absolute 1.71(H) 0.00 - 0.04 x10(3)/ L [facility] Blood specimen (specimen) 08/23/2017 10:35 AM EDT 08/23/2017 10:54 AM EDT Narrative Resulting Agency Comment Spec In Lab Gustavo Mota MD HEMATOLOGY ORDERABLE S [facility] [place] [address] * (ABNORMAL) Hemogram (08/23/2017 10:35 AM EDT) White Blood Cell 16.3(H) 4.0 - 9.5 x10(3)/ L [facility] Red Blood Cell 3.96(L) 4.00 - 5.21 x10(6)/mc L [facility] Hemoglobin 11.7 11.7 - 15.5 gm/dL [facility] Hematocrit 35.3(L) 35.7 - 45.8 % [facility] Mean Cell Volume 89.1 82.6 - 94.4 fL [facility] Mean Cell Hemoglobin 29.5 27.1 - 32.0 pg [facility] Mean Cell Hemoglobin Concentration 33.1 31.7 - 35.0 gm/dL [facility] Platelet 205 145 - 357 x10(3)/mc L [facility] RDW Standard Deviation 47.4(H) 37.0 - 46.0 fL [facility] RDW coefficient of variation 14.8(H) 11.5 - 14.1 % [facility] Mean Platelet Volume 9.3 7.6 - 12.9 fL [facility] NRBC% auto 0.0 % [facility] NRBC Absolute 0.000 0.000 - 0.000 x10(3)/mc L [facility] Blood specimen (specimen) 08/23/2017 10:35 AM EDT 08/23/2017 10:54 AM EDT Narrative Resulting Agency Comment Spec In Lab Gustavo Mota MD HEMATOLOGY ORDERABLE S [facility] [place] [address] * (ABNORMAL) Comprehensive metabolic panel (non-fasting) (08/23/2017 10:35 AM EDT) Glucose 178 65 - 199 mg/dL [facility] Comment:Diabetes: >=200 mg/d L plus symptoms Blood Urea Nitrogen 23(H) 8 - 18 mg/dL [facility] Creatinine 1.28(H) 0.70 - 1.20 mg/dL [facility] Sodium 141 135 - 145 mmol/L [facility] Potassium 3.5 3.5 - 5.0 mmol/L [facility] Comment: Please note: ??Patients with WBC >100,000 may have falsely elevated Potassium levels. ??For accurate Potassium quantification in these patients send serum separator tube (gold top) for subsequent determinations. ??Contact the Clinical Chemistry Laboratory if there are any questions. Chloride 100 98 - 107 mmol/L [facility] Carbon Dioxide 26 22 - 31 mmol/L [facility] Anion Gap 15 5 - 15 mmol/L [facility] Calcium 9.1 8.5 - 10.5 mg/dL [facility] Protein, Total 6.8 6.1 - 8.0 gm/dL [facility] Albumin 3.8 3.2 - 5.2 gm/dL [facility] Aspartate Aminotransferase 14 0 - 30 unit/L [facility] Alanine Aminotransferase 16 0 - 30 unit/L [facility] Alkaline Phosphatase 151(H) 40 - 104 unit/L [facility] Bilirubin, Total 0.2 0.2 - 1.3 mg/dL [facility] Est Glomerular Filtration Rate 47(L) >=60 mL/min/1. 73 m?? [facility] Comment: The eGFR was calculated using the CKD-EPI equation. As with all creatinine based estimates of kidney function, eGFR values calculated with the CKD-EPI equation are not accurate in patients with acute kidney failure, extremes of body mass or the acutely ill. http://LendFriend/Coherent Pathnkdep http://LendFriend/MCnkf eGFR 55(L) >=60 mL/min/1. 73 m?? [facility] Comment: The eGFR was calculated using the CKD-EPI equation. As with all creatinine based estimates of kidney function, eGFR values calculated with the CKD-EPI equation are not accurate in patients with acute kidney failure, extremes of body mass or the acutely ill. http://LendFriend/Coherent Pathnkdep http://LendFriend/[facility]f Blood specimen (specimen) 08/23/2017 10:35 AM EDT 08/23/2017 10:54 AM EDT Narrative Resulting Agency Comment Spec In Lab Gustavo Mota MD CHEMISTRY ORDERABLES [facility] [address] [place] [address] documented in this encounter Visit Diagnoses Diagnosis [...] Starting on Sosa 08/23/17 at 1014, Until 08/24/17 at 0438, Line Care, Flush pertains to all indwelling lines. Flush per protocol found in the job aid using the link provided on this medication record. Refer to Intravenous (IV) Job Aid: Adult Flushing & Catheter Care (7629) job aid for additional information regarding guidelines and administration., Routine Given 08/23/2017 10:39 AM EDT 20 mLs documented in this encounter Care Teams Perpetual Inventory Clerk Relationship Specialty Start Date End Date Trinh Coates MD [address] [place] [address] PCP - General 01/11/10 documented as of this encounter
--- OUTSIDE RECORDS SUMMARY | 2023-09-25 11:48 | XMS_ITS | Encounter Summary ---
Author Organization [facility] [place] [address] Care Team Providers Care Phonograph Mechanic Name Role Phone Trinh Coates MD Primary Care Provider [phone] Reason for Visit * Reason Comments Follow Up Surgery Encounter Details Date Type Department Care Team (Late st Contact Info) Description 10/18/2017 10:20 AM EDT Office Visit [place] [address] Jolene Azevedo APRN [facility] [place] [address] Surgery follow-up Social History Tobacco Use Types [...] reconstruction with attempted SALVADOR flaps, eventual tissue radiological technologist placement with [place] Artoura 600 cc expanders placed bilaterally and filled with 450 cc of methyleneblue impregnated saline.) Complications: right parietal and visceral pleural tear, arterial flap failure bilaterally Date of surgery: 06/22/17 Procedure(s) left breast wound debridement, excision and closure. Debridement of umbilicus. Deflation of radiological technologist volume, This leaves 450 cc in the left tissue radiological technologist and 500 cc on the right side [...] 01/22/2024 10:30 AM EST Appointment Mammography/[place] [address] Ladi Mendosa MD [facility] [place] [address] 01/30/2024 11:30 AM EST Office Visit Dermatology at [facility] [address] [place] [address] Nilda Luis MD [facility] [place] [address] 02/14/2024 7:30 AM EST Appointment [place] [address] Joanna Watts MD [facility] [place] [place] [address] documented as of this encounter Visit Diagnoses Diagnosis Surgery follow-up Follow-up examination, following unspecified surgery documented in this encounter Care Teams Phonograph Mechanic Relationship Specialty Start Date End Date Trinh Coates MD [facility] [address] [place] [address] PCP - General 01/11/10 documented as of this encounter
--- OUTSIDE RECORDS SUMMARY | 2023-09-25 11:48 | XMS_ITS | Encounter Summary ---
Author Organization [facility] [place] [address] Care Team Providers Care Planer Chain Offbearer Name Role Phone Trinh Coates MD Primary Care Provider [phone] Reason for Visit * Reason Comments Follow Up Surgery Encounter Details Date Type Department Care Team (Late st Contact Info) Description 09/18/2017 10:00 AM EDT Office [place] [address] Jolene Azevedo APRN [facility] [place] [address] Surgery follow-up; S/P breast reconstruction, bilateral; Seroma [...] with attempted SALVADOR flaps, eventual tissue heat treater placement with [place] Artoura 600 cc expanders placed bilaterally and filled with 450 cc of methyleneblue impregnated saline.) Complications: right parietal and visceral pleural tear, arterial flap failure bilaterally Date of surgery: 06/22/17 Procedure(s) left breast wound debridement, excision and closure. Debridement of umbilicus. Deflation of heat treater volume, This leaves 450 cc in the left tissue heat treater and 500 cc on the right side [...] 01/22/2024 10:30 AM EST Appointment Mammography/[place] [address] Ladi Mendosa MD [facility] [place] [address] 01/30/2024 11:30 AM EST Office Visit Dermatology at [facility] [address] [place] [phone] Nilda Luis MD [facility] [place] [address] 02/14/2024 7:30 AM EST [place] [address] Joanna Watts MD [facility] [place] [address] documented as of this encounter Visit Diagnoses Diagnosis Surgery follow-up Follow-up examination, following unspecified surgery S/P breast reconstruction, bilateral Breast replaced by other means Seroma of breast documented in this encounter Care Teams Planer Chain Offbearer Relationship Specialty Start Date End Date Trinh Coates MD [facility] [address] [address] PCP - General 01/11/10 documented as of this encounter
--- OUTSIDE RECORDS SUMMARY | 2023-09-25 11:48 | XMS_ITS | Encounter Summary ---
Author Organization [facility] Address [facility] [place] [address] Care Team Providers Care Director Of Rehabilitative Services Name Role Phone Trinh Coates MD Primary Care Provider [phone] Encounter Details Date Type Department Care Team (Late st Contact Info) Description 10/06/2017 Telephone Hematology [place] [address] García Chapin MD [facility] DR HEMATOLOGY/[place] [address] Social History Tobacco Use Types Packs/Day Years [...] 01/22/2024 10:30 AM EST Appointment Mammography[place] [phone] Ladi Mendosa MD [facility] [place] [address] 01/30/2024 11:30 AM EST Office Visit Dermatology at [address] [phone] Nilda Luis MD [facility] [place] [address] 02/14/2024 7:30 AM EST [place] [address] Joanna Watts MD [facility] [place] [address] documented as of this encounter Visit Diagnoses Not on filedocumented in this encounter Care Teams Director Of Rehabilitative Services Relationship Specialty Start Date End Date Trinh Coates MD [address] [place] [address] PCP - General 01/11/10 documented as of this encounter
--- OUTSIDE RECORDS SUMMARY | 2023-09-25 11:48 | XMS_ITS | Encounter Summary ---
Author Organization [facility] [place] [place] [address] Care Team Providers Care Range Technician Name Role Phone Trinh Coates MD Primary Care Provider [phone] Reason for Visit * Treatment/Therapy Plan Authorization (Routine) - Closed Specialty Diagnoses / Procedures Referred By Diamante marin Referred To Contact Diagnoses Malignant neoplasm of upper-outer quadrant of left breast in female, estrogen receptor positive Procedures TC PACLITAXEL, 1MG, INJ TC PEGFILGRASTIM, 6MG, INJECTION Josias Barnett MD [facility] DR HEMATOLOGY/[place] [address] [facility] Hem Onc [address] [place] [address] Referral ID Status Reason Start Date Expiration Date Visits Re quested Visits Authorized [id number] Closed 10/01/2017 10/01/2018 21 21 Encounter Details Date Type Department Care Team (Latest Contact Info) Description 10/04/2017 7:15 AM EDT - 10/04/2017 7:19 AM EDT Hospital Encounter Hematology [place] [address] Malignant neoplasm of upper-outer quadrant [...] 10:30 AM EST Appointment Mammography[place] [phone] Ladi Mendosa MD [facility] DR HEMATOLOGY [place] [address] 01/30/2024 11:30 AM EST Office Visit Dermatology at [facility] [address] [place] [phone] Nilda Luis MD [facility] [place] [address] 02/14/2024 7:30 AM EST [place] [address] Joanna Watts MD [facility] [place] [address] documented as of this encounter Procedures Procedure Name Priority Date/Time Associated Diagnosis Comments PATHOLOGY SLIDE REVIEW Routine 8 7:30 AM EDT DIFFERENTIAL, MANUAL STAT 10/04/2017 7:30 AM EDT HEMOGRAM STAT 10/04/2017 7:30 AM EDT Malignant neoplasm of upper-outer quadrant of left breast in female, estrogen receptor positive CBC (WITH DIFF) STAT 10/04/2017 7:30 AM EDT Malignant neoplasm of upper-outer quadrant of left breast in female, estrogen receptor positive COMPREHENSIVE METABOLIC PANEL STAT 10/04/2017 7:30 AM EDT Malignant neoplasm of upper-outer quadrant of left breast in female, estrogen receptor positive documented in this encounter Results * Smear Review Report (10/04/2017 7:30 AM EDT) Smear Review Report [id number] ? Location: The signing pathologist has (i) examined the relevant preparation(s) for the specimen(s) and (ii) rendered or confirmed the diagnosis(es). . ? Smear Review DIAGNOSIS PERIPHERAL BLOOD, SMEAR: ?? 1. ??Moderate normochromic normocytic anemia ?? 2. ??Left-shifted granulocytosis Electronically signed by: ??Marcos Dickinson MD Verified: ??10/05/2017 ?Hematopathologi st Performed at: ??-[facility] Dept. of Pathology, [place], [place] DISCUSSION The findings are likely related to the patient ?? 's history of cancer treatment and neulasta therapy. Clinical correlation is recommended. ADDITIONAL STUDIES WBC ??15.20p449/uL, RBC 3.20x10 6/uL, HGB 9.7g/dL, HCT 29.6%, [...] review. The clinical history is significant for ER/OH positive HER-2/pat negative breast cancer. She is s/p MRM and SALVADOR reconstruction, complicated by infection and delayed wound healing. She is on aduvant chemotherapy and also on neulasta, with the last dose given on 10/04/2017. [facility] 10/04/2017 7:30 AM EDT Josias Barnett MD HEMATOLOGY ORDERABLE S [facility] [place] [address] * (ABNORMAL) Differential, Manual (10/04/2017 7:30 AM EDT) Segmented Neutrophils Manual 77 % [facility] Lymphocyte Manual 5 % [facility] Monocyte Manual 7 % [facility] Eosinophil Manual 4 % [facility] Basophil Manual 2 % [facility] Metamyelocyte Manual 4 % [facility] Blasts Manual 1 % [facility] Segs Absolute Manual 12.2(H) 1.5 - 6.3 x10(3)/mc L [facility] ANC 12.19(H) 1.70 - 6.10 x10(3)/[facility] Lymph Absolute Manual 0.8(L) 1.0 - 3.6 x10(3)/[facility] Monocyte Absolute Manual 1.1(H) 0.2 - 1.0 x10(3)/[facility] Eos Absolute Manual 0.6(H) 0.0 - 0.5 x10(3)/[facility] Baso Absolute Manual 0.3(H) 0.0 - 0.2 x10(3)/[facility] Levasy Absolute Manual 0.6(H) 0.0 - 0.0 x10(3)/[facility] Blasts Absolute Manual 0.2(H) 0.0 - 0.0 x10(3)/[facility] Total Cells Ct 100 [facility] Plat estimate Normal [facility] RBC Morphology Abnormal [facility] Microcyte 1-5 /HPF [facility] Ovalocytes 1-5 /HPF [facility] Toxic Granulation Present [facility] Dohle Bodies Present [facility] Plat, Giant Less than 1 /HPF [facility] Blood specimen (specimen) 10/04/2017 7:30 AM EDT 10/04/2017 7:39 AM EDT Narrative Resulting Agency Comment Spec In Lab Josias Barnett MD HEMATOLOGY ORDERABLE S [facility] [place] [address] * (ABNORMAL) Hemogram (10/04/2017 7:30 AM EDT) White Blood Cell 15.8(H) 4.0 - 9.5 x10(3)/[facility] Red Blood Cell 3.20(L) 4.00 - 5.21 x10(6)/mc L [facility] Hemoglobin 9.7(L) 11.7 - 15.5 gm/dL [facility] Hematocrit 29.6(L) 35.7 - 45.8 % [facility] Mean Cell Volume 92.5 82.6 - 94.4 fL [facility] Mean Cell Hemoglobin 30.3 27.1 - 32.0 pg [facility] Mean Cell Hemoglobin Concentration 32.8 31.7 - 35.0 gm/dL [facility] Platelet 247 145 - 357 x10(3)/mc L [facility] RDW Standard Deviation 55.8(H) 37.0 - 46.0 fL [facility] RDW coefficient of variation 16.6(H) 11.5 - 14.1 % [facility] Mean Platelet Volume 9.2 7.6 - 12.9 fL [facility] NRBC% auto 0.1 % [facility] NRBC Absolute 0.020(H) 0.000 - 0.000 x10(3)/mc L [facility] Blood specimen (specimen) 10/04/2017 7:30 AM EDT 10/04/2017 7:39 AM EDT Narrative Resulting Agency Comment Spec In Lab Josias Barnett MD HEMATOLOGY ORDERABLE S [facility] [place] [address] * (ABNORMAL) Comprehensive metabolic panel (non-fasting) (10/04/2017 7:30 AM EDT) Glucose 104 65 - 199 mg/dL [facility] Comment:Diabetes: >=200 mg/d L plus symptoms Blood Urea Nitrogen 15 8 - 18 mg/dL [facility] Creatinine 0.97 0.70 - 1.20 mg/dL [facility] Sodium 140 135 - 145 mmol/L [facility] Potassium 3.6 3.5 - 5.0 mmol/L [facility] Comment: Please note: ??Patients with WBC >100,000 may have falsely elevated Potassium levels. ??For accurate Potassium quantification in these patients send serum separator tube (gold top) for subsequent determinations. ??Contact the Clinical Chemistry Laboratory if there are any questions. Chloride 102 98 - 107 mmol/L [facility] Carbon Dioxide 24 22 - 31 mmol/L [facility] Anion Gap 14 5 - 15 mmol/L [facility] Calcium 8.5 8.5 - 10.5 mg/dL [facility] Protein, Total 6.7 6.1 - 8.0 gm/dL [facility] Albumin 3.8 3.2 - 5.2 gm/dL [facility] Aspartate Aminotransferase 9 0 - 30 unit/L [facility] Alanine Aminotransferase 15 0 - 30 unit/L [facility] Alkaline Phosphatase 122(H) 40 - 104 unit/L [facility] Bilirubin, Total 0.2 0.2 - 1.3 mg/dL [facility] Est Glomerular Filtration Rate 66 >=60 mL/min/1. 73 m?? [facility] Comment: The eGFR was calculated using the CKD-EPI equation. As with all creatinine based estimates of kidney function, eGFR values calculated with the CKD-EPI equation are not accurate in patients with acute kidney failure, extremes of body mass or the acutely ill. [email or web address] eGFR 77 >=60 mL/min/1. 73 m?? [facility] Comment: The eGFR was calculated using the CKD-EPI equation. As with all creatinine based estimates of kidney function, eGFR values calculated with the CKD-EPI equation are not accurate in patients with acute kidney failure, extremes of body mass or the acutely ill. [email or web address] Blood specimen (specimen) 10/04/2017 7:30 AM EDT 10/04/2017 7:39 AM EDT Narrative Resulting Agency Comment Spec In Lab Josias Barnett MD CHEMISTRY ORDERABLES [facility] [place] [address] documented in this encounter Visit Diagnoses Diagnosis [...] Job Aid: Adult Flushing & Catheter Care (6068) job aid for additional information regarding guidelines and administration., Routine Given 10/04/2017 7:32 AM EDT 20 mLs documented in this encounter Care Teams Range Technician Relationship Specialty Start Date End Date Trinh Coates MD [address] [place] [address] PCP - General 01/11/10 documented as of this encounter
--- OUTSIDE RECORDS SUMMARY | 2023-09-25 11:48 | XMS_ITS | Encounter Summary ---
Author Organization [facility] Address [place] [address] Care Team Providers Care Candy Puller Name Role Phone Trinh Coates MD Primary Care Provider [phone] Reason for Visit * Treatment/Therapy Plan Authorization (Routine) - Closed Specialty Diagnoses / Procedures Referred By Diamante marin Referred To Contact Hematology and Oncology Diagnoses Malignant neoplasm of upper-outer quadrant of left breast in female, estrogen receptor positive Procedures TC PALONOSETRON HCL, 25MCG, INJECTION (ALOXI) TC DOXORUBICIN HCL, 10MG, INJECTION (ADRIAMYCIN) TC CYCLOPHOSPHAMIDE, 100MG (CYTOXAN) TC PEGFILGRASTIM, 6MG, INJECTION Gustavo Mota MD [facility] DR HEMATOLOGY/[place] [address] [address] Referral ID Status Reason Start Date Expiration Date Visits Re quested Visits Authorized [id number] Closed 07/02/2017 07/02/2018 12 12 Encounter Details Date Type Department Care Team (Latest Contact Info) Description 09/06/2017 9:30 AM EDT - 09/06/2017 9:47 AM EDT Hospital Encounter [place] [address] Malignant neoplasm of upper-outer quadrant [...] 01/22/2024 10:30 AM EST Appointment Mammography[place] [address] [facility] [place] [address] 01/30/2024 11:30 AM EST Office Visit Dermatology at [facility] [address] [place] [address] [facility] [place] [address] 02/14/2024 7:30 AM [place] [address] [facility] [place] [address] documented as of this encounter Procedures Procedure [...] estrogen receptor positive COMPREHENSIVE METABOLIC PANEL STAT 09/06/2017 10:00 AM EDT Malignant neoplasm of upper-outer quadrant of left breast in female, estrogen receptor positive documented in this encounter Results * (ABNORMAL) Differential, Manual (09/06/2017 10:00 AM EDT) Segmented Neutrophils Manual 78 % [facility] Lymphocyte Manual 8 % [facility] Monocyte Manual 3 % [facility] Eosinophil Manual 4 % [facility] Metamyelocyte Manual 7 % [facility] Segs Absolute Manual 14.9(H) 1.5 - 6.3 x10(3)/mc L [facility] ANC 14.91(H) 1.70 - 6.10 x10(3)/mc L [facility] Lymph Absolute Manual 1.5 1.0 - 3.6 x10(3)/mc L [facility] Monocyte Absolute Manual 0.6 0.2 - 1.0 x10(3)/mc L [facility] Eos Absolute Manual 0.8(H) 0.0 - 0.5 x10(3)/mc L [facility] Irving Absolute Manual 1.3(H) 0.0 - 0.0 x10(3)/mc L [facility] Total Cells Ct 100 [facility] Plat estimate Normal [facility] RBC Morphology Normal [facility] Plat, Giant Less than 1 /HPF [facility] Blood specimen (specimen) 09/06/2017 10:00 AM EDT 09/06/2017 10:24 AM EDT Narrative Resulting Agency Comment Spec In Lab Gustavo Mota MD HEMATOLOGY ORDERABLE S [facility] [place] [address] * (ABNORMAL) Hemogram (09/06/2017 10:00 AM EDT) White Blood Cell 19.1(H) 4.0 - 9.5 x10(3)/mc L [facility] Red Blood Cell 3.70(L) 4.00 - 5.21 x10(6)/mc L [facility] Hemoglobin 11.4(L) 11.7 - 15.5 gm/dL [facility] Hematocrit 33.0(L) 35.7 - 45.8 % [facility] Mean Cell Volume 89.2 82.6 - 94.[address] [facility] Mean Cell Hemoglobin 30.8 27.1 - 32.[address] [facility] Mean Cell Hemoglobin Concentration 34.5 31.7 - 35.0 gm/dL [facility] Platelet 251 145 - 357 x10(3)/mc L [facility] RDW Standard Deviation 49.5(H) 37.0 - 46.[address] [facility] RDW coefficient of variation 15.9(H) 11.5 - 14.1 % [facility] Mean Platelet Volume 9.4 7.6 - 12.[address] [facility] NRBC% auto 0.2 % [facility] NRBC Absolute 0.040(H) 0.000 - 0.000 x10(3)/mc L [facility] Blood specimen (specimen) 09/06/2017 10:00 AM EDT 09/06/2017 10:24 AM EDT Narrative Resulting Agency Comment Spec In Lab Gustavo Mota MD HEMATOLOGY ORDERABLE S [facility] [place] [address] * (ABNORMAL) Comprehensive metabolic panel (non-fasting) (09/06/2017 10:00 AM EDT) Glucose 151 65 - 199 mg/dL [facility] Comment:Diabetes: >=200 mg/d L plus symptoms Blood Urea Nitrogen 17 8 - 18 mg/dL [facility] Creatinine 1.03 0.70 - 1.20 mg/dL [facility] Sodium 142 135 - 145 mmol/L [facility] Potassium 3.1(L) 3.5 - 5.0 mmol/L [facility] Comment: Please note: ??Patients with WBC >100,000 may have falsely elevated Potassium levels. ??For accurate Potassium quantification in these patients send serum separator tube (gold top) for subsequent determinations. ??Contact the Clinical Chemistry Laboratory if there are any questions. Chloride 99 98 - 107 mmol/L [facility] Carbon Dioxide 26 22 - 31 mmol/L [facility] Anion Gap 17(H) 5 - 15 mmol/L [facility] Calcium 8.6 8.5 - 10.5 mg/dL [facility] Protein, Total 6.9 6.1 - 8.0 gm/dL [facility] Albumin 3.9 3.2 - 5.2 gm/dL [facility] Aspartate Aminotransferase 12 0 - 30 unit/L [facility] Alanine Aminotransferase 16 0 - 30 unit/L [facility] Alkaline Phosphatase 152(H) 40 - 104 unit/L [facility] Bilirubin, Total <0.2(L) 0.2 - 1.3 mg/dL [facility] Est Glomerular Filtration Rate 62 >=60 mL/min/1. 73 m?? [facility] Comment: The eGFR was calculated using the CKD-EPI equation. As with all creatinine based estimates of kidney function, eGFR values calculated with the CKD-EPI equation are not accurate in patients with acute kidney failure, extremes of body mass or the acutely ill. http://[employer]ep http://[employer] eGFR 71 >=60 mL/min/1. 73 m?? [facility] Comment: The eGFR was calculated using the CKD-EPI equation. As with all creatinine based estimates of kidney function, eGFR values calculated with the CKD-EPI equation are not accurate in patients with acute kidney failure, extremes of body mass or the acutely ill. http://[employer] Journey/[employer]nkdep http://[employer]f Blood specimen (specimen) 09/06/2017 10:00 AM EDT 09/06/2017 10:24 AM EDT Narrative Resulting Agency Comment Spec In Lab Gustavo Mota MD CHEMISTRY ORDERABLES [facility] [place] [address] documented in this encounter Visit Diagnoses Diagnosis [...] (IV) Procedure: Accessing Implanted Vascular Access Devices (194) procedure and/or Intravenous (IV) Job Aid: Adult Flushing & Catheter Care (2811) job aid for additional information regarding guidelines [...] Job Aid: Adult Flushing & Catheter Care (4664) job aid for additional information regarding guidelines and administration., Routine Given 09/06/2017 10:04 AM EDT 20 mLs documented in this encounter Care Teams Candy Puller Relationship Specialty Start Date End Date Trinh Coates MD [facility] [address] [place] [address] PCP - General 01/11/10 documented as of this encounter
--- OUTSIDE RECORDS SUMMARY | 2023-09-25 11:48 | XMS_ITS | Encounter Summary ---
Author Organization [facility] Address [facility]ita [facility] [place] [address] Care Team Providers Care White Shoe Ragger Name Role Phone Trinh Coates MD Primary Care Provider [phone] Reason for Visit * Reason Comments Chemotherapy [...] [facility] DR HEMATOLOGY/[place] [address] [facility] [address] [place] [address] Referral ID Status Reason Start Date Expiration Date Visits Re quested Visits Authorized [id number] Closed 07/02/2017 07/02/2018 12 12 Encounter Details Date Type Department Care Team (Latest Contact Info) Description 08/23/2017 10:09 AM EDT - 08/23/2017 11:59 PM EDT Hospital Encounter Hematology [place] [address] Malignant neoplasm of upper-outer quadrant [...] EST Appointment Mammography[place] [address] Ladi Mendosa MD [facility] [address] [place] [address] 01/30/2024 11:30 AM EST Office Visit Dermatology at [facility] [address] [place] [address] Nilda Luis MD [facility] [place] [address] 02/14/2024 7:30 AM EST Appointment [place] [address] Joanna Watts MD [facility] [address] documented as of this encounter Visit Diagnoses [...] (IV) Procedure: Accessing Implanted Vascular Access Devices (564) procedure and/or Intravenous (IV) Job Aid: Adult Flushing & Catheter Care (5082) job aid for additional information regarding guidelines [...] Job Aid: Adult Flushing & Catheter Care (8158) job aid for additional information regarding guidelines and administration., Routine Given 08/23/2017 3:09 PM EDT 20 mLs documented in this encounter Care Teams White Shoe Ragger Relationship Specialty Start Date End Date Trinh Coates MD [address] [facility] [address] [place] [address] PCP - General 01/11/10 documented as of this encounter
--- OUTSIDE RECORDS SUMMARY | 2023-09-25 11:48 | XMS_ITS | Encounter Summary ---
Author Organization [facility] Address [facility] [place] [address] Care Team Providers Care Emergency Medcl Emt Name Role Phone Trinh Coates MD Primary Care Provider [phone] Encounter Details Date Type Department Care Team (Late st Contact Info) Description 08/09/2017 11:00 AM EDT Office Visit Hematology [place] [address] Jimmie Mays APRN [facility] [place] [address] Malignant neoplasm of upper-outer quadrant of left [...] this encounter Progress Notes * Jimmie Mays, PATTERNMAKER APPRENTICE METAL - 08/09/2017 11:00 AM EDT Subjective: Patient [...] was unremarkable. Core biopsy demonstrated invasive cancer, ER/ND positive, HER- 2/pat negative. Breast MRI demonstrated [...] Wendy Sandoval is a 52 y.o. with ER/ND positive, HER-2/pat negative left breast cancer. She [...] 01/22/2024 10:30 AM EST Appointment Mammography/[place] [phone] Ladi Mendosa MD [facility] [place]ATOLOG[place] [address] 01/30/2024 11:30 AM EST Office Visit Dermatology at [address] [phone] Nilda Luis MD [facility] [place] [address] 02/14/2024 7:30 AM EST [place] [address] Joanna Watts MD [facility] [place] [address] documented as of this encounter Visit Diagnoses Diagnosis Malignant neoplasm of upper-outer quadrant of left breast in female, estrogen receptor positive documented in this encounter Care Teams Emergency Medcl Emt Relationship Specialty Start Date End Date Trinh Coates MD [facility] [address] [place] [address] PCP - General 01/11/10 documented as of this encounter
--- OUTSIDE RECORDS SUMMARY | 2023-09-25 11:48 | XMS_ITS | Encounter Summary ---
Author Organization [facility] Address [facility] [place] [address] Care Team Providers Care Creative Art Director Name Role Phone Trinh Coates MD Primary Care Provider [phone] Encounter Details Date Type Department Care Team (Latest Contact Info) Description 09/06/2017 10:43 AM EDT - 09/06/2017 11:28 AM EDT Hospital En[place] [address] [facility] [place] [address] S/P breast reconstruction, bilateral; Seroma of breast [...] 01/22/2024 10:30 AM EST Appointment Mammography/[place] [phone] [facility] HEMATOLOGY [place] [address] 01/30/2024 11:30 AM EST Office Visit Dermatology at [place] [address] [place] [address] [facility] [place] [address] 02/14/2024 7:30 AM EST Appointment [place] [address] [facility] [address] documented as of this encounter Procedures Procedure [...] breast documented in this encounter Care Teams Creative Art Director Relationship Specialty Start Date End Date Trinh Coates MD [address] [facility] [place] [address] PCP - General 01/11/10 documented as of this encounter
--- OUTSIDE RECORDS SUMMARY | 2023-09-25 11:48 | XMS_ITS | Encounter Summary ---
Author Organization [facility] Address [facility] [place] [address] Care Team Providers Care Distributor Of Directories Name Role Phone Trinh Coates MD Primary Care Provider [phone] Encounter Details Date Type Department Care Team (Late st Contact Info) Description 10/04/2017 8:30 AM EDT Office Visit Hematology [place] [address] Josias Barnett MD [facility] HEMATOLOGY/[place] [address] Malignant neoplasm of upper-outer quadrant of left [...] A. 2.0 cm cancer, high-grade, grade 3. ER/OR +++, HER-2/pat negative, 4/18 nodes (1/18 additional [...] 01/22/2024 10:30 AM EST Appointment Mammography/[place] [address] Ladi Mendosa MD [facility] [place] [address] 01/30/2024 11:30 AM EST Office Visit Dermatology at [facility] [address] [place] [phone] Nilda Luis MD [facility] [place] [address] 02/14/2024 7:30 AM EST Appointment [place] [address] Joanna Watts MD [facility] [place] [address] documented as of this encounter Visit Diagnoses Diagnosis Malignant neoplasm of upper-outer quadrant of left breast in female, estrogen receptor positive documented in this encounter Care Teams Distributor Of Directories Relationship Specialty Start Date End Date Trinh Coates MD [facility] [address] [address] PCP - General 01/11/10 documented as of this encounter
--- OUTSIDE RECORDS SUMMARY | 2023-09-25 11:48 | XMS_ITS | Encounter Summary ---
Author Organization [facility] Address [facility] [place] [address] Care Team Providers Care Special Service Representative Name Role Phone Trinh Coates MD Primary Care Provider [phone] Reason for Visit * Reason Comments Follow-up Encounter Details Date Type Department Care Team (Late st Contact Info) Description 09/20/2017 10:00 AM EDT Office Visit Hematology [place] [address] Salyl Ren APRN [facility] [place] [address] Essential hypertension; Malignant neoplasm of upper-outer quadrant [...] this encounter Progress Notes * Sally Ren, TREATING INSPECTOR - 09/20/2017 10:00 AM EDT Subjective: Patient [...] was unremarkable. Core biopsy demonstrated invasive cancer, ER/AR positive, HER- 2/pat negative. Breast MRI demonstrated [...] Wendy Sandoval is a 52 y.o. with ER/AR positive, HER-2/pat negative left breast cancer. She is s/p bilateral MRM with attempted SALVADOR flap reconstruction. This failed and she has expanders in place. This was complicated by delayed wound healing and infection. She had cycle 3 of AC 4 weeks ago. She has developed a fairly large seroma behind her left breast fuse spooler. Drain remains in place and she is [...] AM EST Appointment Mammography/DXA at [place] [phone] Ladi Mendosa MD [facility] DR HEMATOLOGY [place] [address] 01/30/2024 11:30 AM EST Office Visit Dermatology at [address] [phone] Nilda Luis MD [facility] [place] [address] 02/14/2024 7:30 AM EST Appointment Radiology at [place] [phone] Joanna Watts MD [facility] [place] [address] documented as of this encounter Visit Diagnoses Diagnosis Essential hypertension Unspecified essential hypertension Malignant neoplasm of upper-outer quadrant of left breast in female, estrogen receptor positive Seroma of breast documented in this encounter Care Teams Special Service Representative Relationship Specialty Start Date End Date Trinh Coates MD [facility] [address] [place] [address] PCP - General 01/11/10 documented as of this encounter
--- OUTSIDE RECORDS SUMMARY | 2023-09-25 11:48 | XMS_ITS | Encounter Summary ---
Author Organization [facility] Address [facility] [place] [address] Care Team Providers Care Air Export Operations Agent Name Role Phone Trinh Coates MD Primary Care Provider [phone] Reason for Visit * Reason Comments Follow Up Surgery breast drain Encounter Details Date Type Department Care Team (Late st Contact Info) Description 10/04/2017 8:00 AM EDT Office [place] [address] Jolene Azevedo APRN [facility] [place] [address] S/P breast reconstruction, bilateral Social History Tobacco [...] 04/26/17 Procedure(s): Bilateral breast reconstruction with attempted SALVDAOR flaps, eventual tissue battery inspector placement with [place] Artoura 600 cc expanders placed bilaterally and filled with 450 cc of methyleneblue impregnated saline.) Complications: right parietal and visceral pleural tear, arterial flap failure bilaterally Date of surgery: 06/22/17 Procedure(s) left breast wound debridement, excision and closure. Debridement of umbilicus. Deflation of battery inspector volume, This leaves 450 cc in the left tissue battery inspector and 500 cc on the right side [...] 01/22/2024 10:30 AM EST Appointment Mammography/[place] [address] Ladi Mendosa MD [facility] DR HEMATOLOGY [place] [address] 01/30/2024 11:30 AM EST Office Visit Dermatology at [facility] [address] [place] [address] Nilda Luis MD [facility] [place] [address] 02/14/2024 7:30 AM EST [place] [address] Joanna Watts MD [facility] [place] [address] documented as of this encounter Visit Diagnoses Diagnosis S/P breast reconstruction, bilateral Breast replaced by other means documented in this encounter Care Teams Air Export Operations Agent Relationship Specialty Start Date End Date Trinh Coates MD [facility] [address] [place] [address] PCP - General 01/11/10 documented as of this encounter
--- OUTSIDE RECORDS SUMMARY | 2023-09-25 11:48 | XMS_ITS | Encounter Summary ---
Author Organization [facility] [address] Care Team Providers Care Superintendent Division Name Role Phone Trinh Coates MD Primary Care Provider [phone] Encounter Details Date Type Department Care Team (Latest Contact Info) Description 09/20/2017 8:45 AM EDT - 09/20/2017 8:46 AM EDT Hospital Encounter Hematology [place] [address] Malignant neoplasm of upper-outer quadrant of left [...] 01/22/2024 10:30 AM EST Appointment Mammography/DXA at [place] [phone] Ladi Mendosa MD [facility] DR [place] [address] 01/30/2024 11:30 AM EST Office Visit Dermatology at [address] [address] Nilda Luis MD [facility] [place] [address] 02/14/2024 7:30 AM EST [place] [address] Joanna Watts MD [facility] [place] [address] documented as of this encounter Procedures Procedure [...] estrogen receptor positive COMPREHENSIVE METABOLIC PANEL STAT 09/20/2017 9:00 AM EDT Malignant neoplasm of upper-outer quadrant of left breast in female, estrogen receptor positive documented in this encounter Results * Scan, Peripheral Blood (09/20/2017 9:00 AM EDT) Pathologist [facility] Plat estimate Increased [facility] RBC Morphology Abnormal [facility] Microcyte 1-5 /HPF [facility] Blood specimen (specimen) 09/20/2017 9:00 AM EDT 09/20/2017 9:29 AM EDT Narrative Resulting Agency Comment Spec In Lab Sally Ren TRIMMER AND REINFORCER HEMATOLOGY ORDERABL ES [facility] [place] [address] * (ABNORMAL) Differential, Automated (09/20/2017 9:00 AM EDT) [facility] Neutrophil % 69.6 % [facility] Neutrophil Absolute 8.82(H) 1.70 - 6.10 x10(3)/mc L [facility] Lymph % 7.8 % [facility] Lymphocytes Abs 1.0 0.9 - 3.2 x10(3)/mc L [facility] Monocyte % 12.8 % [facility] Monocyte Abs 1.6(H) 0.3 - 0.9 x10(3)/mc L [facility] Eos % 6.3 % [facility] Eosinophils Abs 0.8(H) 0.0 - 0.4 x10(3)/ L [facility] Basophil % 2.5 % [facility] Baso Absolute 0.3(H) 0.0 - 0.1 x10(3)/ L [facility] Immature Gran % 1.00 % [facility] Comment: Immature granulocytes(IG's)percentage and absolute count will include metamyelocytes, myelocytes, and promyelocytes. Blood smears from CBCs yielding IG's will be scanned manually for concordance. If this scan disagrees with the automated IG or if promyelocytes are noted, a manual differential will be performed. Immature Gran Absolute 0.13(H) 0.00 - 0.04 x10(3)/[facility] Blood specimen (specimen) 09/20/2017 9:00 AM EDT 09/20/2017 9:29 AM EDT Narrative Resulting Agency Comment Spec In Lab Sally Ren TRIMMER AND REINFORCER HEMATOLOGY ORDERABL ES [facility] [place] [address] * (ABNORMAL) Hemogram (09/20/2017 9:00 AM EDT) White Blood Cell 12.7(H) 4.0 - 9.5 x10(3)/ L [facility] Red Blood Cell 3.49(L) 4.00 - 5.21 x10(6)/ L [facility] Hemoglobin 10.4(L) 11.7 - 15.5 gm/dL [facility] Hematocrit 31.7(L) 35.7 - 45.8 % [facility] Mean Cell Volume 90.8 82.6 - 94.4 fL [facility] Mean Cell Hemoglobin 29.8 27.1 - 32.0 pg [facility] Mean Cell Hemoglobin Concentration 32.8 31.7 - 35.0 gm/dL [facility] Platelet 533(H) 145 - 357 x10(3)/ L [facility] RDW Standard Deviation 55.2(H) 37.0 - 46.0 fL [facility] RDW coefficient of variation 16.5(H) 11.5 - 14.1 % [facility] Mean Platelet Volume 8.7 7.6 - 12.9 fL [facility] NRBC% auto 0.0 % [facility] NRBC Absolute 0.000 0.000 - 0.000 x10(3)/mc L [facility] Blood specimen (specimen) 09/20/2017 9:00 AM EDT 09/20/2017 9:29 AM EDT Narrative Resulting Agency Comment Spec In Lab Sally Ren TRIMMER AND REINFORCER HEMATOLOGY ORDERABL ES [facility] [place] [address] * (ABNORMAL) Comprehensive metabolic panel (non-fasting) (09/20/2017 9:00 AM EDT) Glucose 141 65 - 199 mg/dL [facility] Comment:Diabetes: >=200 mg/d L plus symptoms Blood Urea Nitrogen 19(H) 8 - 18 mg/dL [facility] Creatinine 1.01 0.70 - 1.20 mg/dL [facility] Sodium 139 135 - 145 mmol/L [facility] Potassium 3.3(L) 3.5 - 5.0 mmol/L [facility] Comment: Please note: ??Patients with WBC >100,000 may have falsely elevated Potassium levels. ??For accurate Potassium quantification in these patients send serum separator tube (gold top) for subsequent determinations. ??Contact the Clinical Chemistry Laboratory if there are any questions. Chloride 98 98 - 107 mmol/L [facility] Carbon Dioxide 27 22 - 31 mmol/L [facility] Anion Gap 14 5 - 15 mmol/L [facility] Calcium 9.6 8.5 - 10.5 mg/dL [facility] Protein, Total 6.7 6.1 - 8.0 gm/dL [facility] Albumin 3.8 3.2 - 5.2 gm/dL [facility] Aspartate Aminotransferase 16 0 - 30 unit/L [facility] Alanine Aminotransferase 24 0 - 30 unit/L [facility] Alkaline Phosphatase 112(H) 40 - 104 unit/L [facility] Bilirubin, Total 0.3 0.2 - 1.3 mg/dL [facility] Est Glomerular Filtration Rate 63 >=60 mL/min/1. 73 m?? [facility] Comment: The eGFR was calculated using the CKD-EPI equation. As with all creatinine based estimates of kidney function, eGFR values calculated with the CKD-EPI equation are not accurate in patients with acute kidney failure, extremes of body mass or the acutely ill. http://Nauchime.org/[email or web address]ULSAnkf eGFR 73 >=60 mL/min/1. 73 m?? [facility] Comment: The eGFR was calculated using the CKD-EPI equation. As with all creatinine based estimates of kidney function, eGFR values calculated with the CKD-EPI equation are not accurate in patients with acute kidney failure, extremes of body mass or the acutely ill. http://Nauchime.org/[facility]MCnkf Blood specimen (specimen) 09/20/2017 9:00 AM EDT 09/20/2017 9:29 AM EDT Narrative Resulting Agency Comment Spec In Lab Sally Ren TRIMMER AND REINFORCER CHEMISTRY ORDERABLE S [facility] [place] [address] documented in this encounter Visit Diagnoses Diagnosis Malignant neoplasm of upper-outer quadrant of left breast in female, estrogen receptor positive documented in this encounter Administered Medications Inactive Administered Medications - up to 3 most recent administrations Medication Order MAR Action Action Date Dose Rate Site sodium chloride 0.9 % flush 10 mL 10 mL, Intravenous, EVERY 1 MIN PRN, Starting on Sosa 09/20/17 at 0849, Until Sun09/21/17 at 0437, To maintain line, Implanted IV Ports- Intermittent Flush; Give before and after medications or transfusions, Routine Given 09/20/2017 9:13 AM EDT 20 mLs documented in this encounter Care Teams Superintendent Division Relationship Specialty Start Date End Date Trinh Coates MD [address] [place] [address] PCP - General 01/11/10 documented as of this encounter
--- OUTSIDE RECORDS SUMMARY | 2023-09-25 11:48 | XMS_ITS | Encounter Summary ---
Author Organization [facility] Address [facility] [place] [address] Care Team Providers Care Wrapper Caser Name Role Phone Trinh Coates MD Primary Care Provider [phone] Reason for Visit * Reason Comments Follow-up Encounter Details Date Type Department Care Team (Late st Contact Info) Description 08/23/2017 11:30 AM EDT Office Visit Hematology [place] [address] Gustavo Mota MD [facility] HEMATOLOGY/[place] [address] Malignant neoplasm of upper-outer quadrant of left [...] A. 2.0 cm cancer, high-grade, grade 3. ER/TX +++, HER-2/pat negative, 4/18 nodes (1/ 18 [...] in sodium chloride 0.9% 304.9 mL chemo [id number] mg/m2/dose (Treatment Plan Recorded) Intravenous Once Gustavo [...] from 08/23/2017 in Hematology and Oncology at [place] Weight 78.5 kg (173 lb) Height 157.2 [...] 01/22/2024 10:30 AM EST Appointment Mammography/[place] [address] Ladi Mendosa MD [facility] HEMATOLOGY [place] [address] 01/30/2024 11:30 AM EST Office Visit Dermatology at [place] [address] [place] [address] Nilda Luis MD [facility] [place] [address] 02/14/2024 7:30 AM EST App[place] [address] Joanna Watts MD [facility] [place] [address] documented as of this encounter Visit Diagnoses Diagnosis Malignant neoplasm of upper-outer quadrant of left breast in female, estrogen receptor positive Essential hypertension Unspecified essential hypertension Obstructive sleep apnea (adult) (pediatric) Hyperparathyroidism Hyperparathyroidism, unspecified documented in this encounter Care Teams Wrapper Caser Relationship Specialty Start Date End Date Trinh Coates MD [facility] [address] [place] [address] PCP - General 01/11/10 documented as of this encounter
--- OUTSIDE RECORDS SUMMARY | 2023-09-25 11:48 | XMS_ITS | Encounter Summary ---
Author Organization [facility] [place] [address] Care Team Providers Care Band Salvager Name Role Phone Trinh Coates MD Primary Care Provider [phone] Reason for Visit * Reason Comments Breast Cancer * Treatment/Therapy Plan Authorization (Routine) - Closed Specialty Diagnoses / Procedures Referred By Diamante marin Referred To Contact Diagnoses Malignant neoplasm of upper-outer quadrant of left breast in female, estrogen receptor positive Procedures TC PACLITAXEL, 1MG, INJ TC PEGFILGRASTIM, 6MG, INJECTION Josias Barnett MD [facility] DR HEMATOLOGY/[place] [address] [facility] [address] [place] [address] Referral ID Status Reason Start Date Expiration Date Visits Re quested Visits Authorized [id number] Closed 10/01/2017 10/01/2018 21 21 Encounter Details Date Type Department Care Team (Latest Contact Info) Description 10/18/2017 8:15 AM EDT - 10/18/2017 11:59 PM EDT Hospital Encounter [place]ology [place] [address] Malignant neoplasm of upper-outer quadrant [...] 01/22/2024 10:30 AM EST Appointment Mammography/[place] [address] Ladi eMndosa MD [facility] HEMATOLOGY [place] [address] 01/30/2024 11:30 AM EST Office Visit Dermatology at [place] [address] [place] [address] Nilda Luis MD [facility] [place] [address] 02/14/2024 7:30 AM EST [place] [phone] Joanna Watts MD [facility] [place] [address] documented as of this encounter Visit Diagnoses [...] Job Aid: Adult Flushing & Catheter Care (0858) job aid for additional information regarding guidelines [...] Job Aid: Adult Flushing & Catheter Care (7724) job aid for additional information regarding guidelines and administration., Routine Given 10/18/2017 3:37 PM EDT 20 mLs sodium chloride 0.9% infusion 1,000 mL, at 999 mL/hr, Intravenous, ONCE, 1 dose, On Sosa 10/18/17 at 1045 New Bag 10/18/2017 11:20 AM EDT 1,000 mLs 999 mL/hr Implanted Port documented in this encounter Care Teams Band Salvager Relationship Specialty Start Date End Date Trinh Coates MD [address] [place] [address] PCP - General 01/11/10 documented as of this encounter
--- OUTSIDE RECORDS SUMMARY | 2023-09-25 11:48 | XMS_ITS | Encounter Summary ---
Author Organization [facility] Address [facility] [place] [address] Care Team Providers Care Medical Education Specialist Name Role Phone Trinh Coates MD Primary Care Provider [phone] Encounter Details Date Type Department Care Team (Late st Contact Info) Description 09/28/2017 Orders [place] [address] Andre Gimenez MD [facility] DR [place] [address] Social History Tobacco Use Types Packs/Day Years [...] 01/22/2024 10:30 AM EST Appointment Mammography/[place] [address] Ladi Mendosa MD [facility] DR HEMATOLOGY [place] [address] 01/30/2024 11:30 AM EST Office Visit Dermatology at [facility] [address] [place] [address] Nilda Luis MD [facility] [place] [address] 02/14/2024 7:30 AM EST [place] [phone] Joanna Watts MD [facility] [place] [address] documented as of this encounter Visit Diagnoses Not on filedocumented in this encounter Care Teams Medical Education Specialist Relationship Specialty Start Date End Date Trinh Coates MD [facility] [address] [facility] [address] [place] [address] PCP - General 01/11/10 documented as of this encounter
--- OUTSIDE RECORDS SUMMARY | 2023-09-25 11:48 | XMS_ITS | Encounter Summary ---
Author Organization [place] [address] Care Team Providers Care Transition Rn Name Role Phone Trinh Coates MD Primary Care Provider [phone] Reason for Referral * Diagnostic Test (Routine) - Canceled Specialty Diagnoses / Procedures Referred By Shadyac t Referred To Contact Radiology Diagnoses Surgery follow-up Procedures IR Breast Drain Placement Jolene Azevedo PRINTING ASSISTANT [facility] [place] [address] [place] [address] Referral ID Status Reason Start Date Expiration Date Visits Requested Visits Authorized [id number] Canceled Specialty Service Requested 07/03/2017 07/03/2018 1 1 Reason for Visit * Diagnostic Test (Routine) - Canceled Specialty Diagnoses / Procedures Referred By Contrenan t Referred To Contact Radiology Diagnoses Surgery follow-up Procedures IR Breast Drain Placement Jolene Azevedo APRN [facility] [place] [address] [place] [address] Referral ID Status Reason Start Date Expiration Date Visits Requested Visits Authorized [id number] Canceled Specialty Service Requested 07/03/2017 07/03/2018 1 1 Encounter Details Date Type Department Care Team (Latest Contact Info) Description 09/06/2017 11:29 AM EDT - 09/06/2017 11:59 PM EDT Hospital [place] [address] Jolene Azevedo APRN [facility] [place] [address] Surgery follow-up Discharge Disposition: Home Social History [...] is during regular office hours, please call [phone]. If it is after regular office hours, or on weekends or holidays, please call [phone] and ask to speak to the College Basketball Coach title one teacher for Interventional Radiology. XX You have received [...] (home) Telephone Information: PCP Trinh Coates MD [phone] Date/Time of call: September 07, 2017/9:42 AM [...] days. Risks (including hemorrhage, infection, damage to administrative court justice), and benefits discussed and patient consented to [...] of left breast in female, estrogen receptor ffmheglxK62.412, Z17.0 ??? S/P breast reconstruction, bilateral Z98.890 [...] [facility] OR ??? PRO BREAST RECONSTRUC W FREE FLAP Bilateral 04/26/2017 ?? @BREAST RECONSTRUCTION W/ FREE FLAP, SUSAN (WRVU 42.58) performed by Andre Gimenez MD at [facility] OR ??? PRO BREAST RECONSTRUC W TISS EXPANDR Bilateral 04/26/2017 ?? BREAST RECONSTRUCTION, IMMEDIATE OR DELAYED, W/ TISSUE OPERATIONS PROJECT MANAGER, INCLUDING SUBSEQUENT EXPANSION (WRVU 18.5) performed by Andre Gimenez MD at [facility] OR ? ? PRO DEBRIDEMENT SUBCUTANEOUS TISSUE 20 SQCM/< ?? 06/22/2017 ?? DEBRIDEMENT SKIN AND SUBCU, BREAST (WRVU 1.01) performed by Andre Gimenez MD at [facility] OR ??? PRO EXPLORE PARATHYROID GLANDS N/A 11/02/2015 ?? PARATHYROIDECTOMY OR EXPLORATION OF PARATHYROID(S) performed by Valentina Lucas MD at [facility] OR ? ? PRO FULL THICK GRFT TRUNK <20 SQCM Bilateral 04/26/2017 ?? FTSG, FREE, DIR CLOSE DONOR SITE, TRUNK, 20 SQ CM OR LESS (WRVU 9.15) performed by Susana Gimenez MD at [facility] OR [...] at [facility] OR ??? PRO REVISE BREAST RECONSTRUCTION Left 06/22/2017 ?? REVISION OF RECONSTRUCTED BREAST (WRVU 10.41) performed by Andre Gimenez MD at [facility] OR ??? PRO THYMECTOMY, TRANSCERVICAL N/A 11/02/2015 ?? THYMECTOMY, TRANSCERVICAL APPROACH performed by Valentina Lucas MD at [facility] OR ??? SHOULDER SURGERY Left ? UMBILICAL [...] Units 500 Units Intravenous Once PRN Gustavo Moat MD ? 500 Units at 09/06/17 1004 [...] of : 1965 AGE 52 y.o. Address: [address] [place] [address] (home) [phone] (work) Mobile: Telephone Information: Referring Provider: Jolene [...] of left breast in female, estrogen receptor fclebftiB02.412, Z17.0 ??? S/P breast reconstruction, bilateral Z98.890 ??? Surgery follow-up Z09 ??? Abdominal wound dehiscence T81.30XA ??? Hypokalemia E87.6 Pertinent PSH: Past Surgical History: Procedure Laterality Date ??? BREAST BIOPSY Right 11/01 ??? SECTION x 2 ??? HAND SURGERY Right ??? PRG EMG, LARYNX N/A 11/02/2015 FACIAL NERVE MONITORING, SETUP LARYNGEAL performed by Valentina Lucas MD at [facility] OR ??? PRO BREAST RECONSTRUC W FREE FLAP Bilateral 04/26/2017 @BREAST RECONSTRUCTION W/ FREE FLAP, SUSAN (WRVU 42.58) performed by Andre Gimenez MD at [facility] ??? PRO BREAST RECONSTRUC W TISS EXPANDR Bilateral 04/26/2017 BREAST RECONSTRUCTION, IMMEDIATE OR DELAYED, W/ TISSUE OPERATIONS PROJECT MANAGER, INCLUDING SUBSEQUENT EXPANSION (WRVU 18.5) performed [...] at [facility] OR ??? PRO REVISE BREAST [...] R drain removed. Fentanyl 50 mcg IV? [id number] Left breast aspiration/ 30 ml Fentanyl 100 [...] of left breast in female, estrogen receptor jucgotgpN27.412, Z17.0 ??? S/P breast reconstruction, bilateral Z98.890 [...] performed by Valentina Lucas MD at [facility] OR ??? PRO BREAST RECONSTRUC W FREE FLAP Bilateral 04/26/2017 @BREAST RECONSTRUCTION W/ FREE FLAP, SUSAN (WRVU 42.58) performed by Andre Gimenez MD at [facility] ??? PRO BREAST RECONSTRUC W TISS EXPANDR Bilateral 04/26/2017 BREAST RECONSTRUCTION, IMMEDIATE OR DELAYED, W/ TISSUE OPERATIONS PROJECT MANAGER, INCLUDING SUBSEQUENT EXPANSION (WRVU 18.5) performed [...] at [facility] OR ??? PRO REVISE BREAST [...] U/S showed fluid surrounding the Left breast administrative court justice as seen on the breast US from [...] and looped in the breast around the administrative court justice under fluoroscopy, position within the collection confirmed [...] Impression: 1. Left breast drain placement, 8 [place]. 2. 320 cc of mildly cloudy pale [...] 01/22/2024 10:30 AM EST Appointment Mammography/[place] [address] Ladi Mendosa MD [facility] HEMATOLOGY [place] [address] 01/30/2024 11:30 AM EST Office Visit Dermatology at [facility] [address] [place] [phone] Nilda Luis MD [facility] [place] [address] 02/14/2024 7:30 AM EST [place]ment [place] [address] Joanna Watts MD [facility] [place] [address] documented as of this encounter Procedures Procedure [...] Indication for Procedure: Per Wendy Maldonado APRN [place] is a 52 y.o. female with a [...] U/S showed fluid surrounding the Left breast administrative court justice as seen on the ??breast US from [...] and looped in the breast around the administrative court justice under fluoroscopy, position within the collection confirmed [...] Impression: 1. ??Left breast drain placement, 8 [place]. 2. ??320 cc of mildly cloudy pale yellow fluid aspirated, sample sent for labs. Resident/Fellow: ??Dr. Mcgovern. Attending: I, Dr. Crowley performed this procedure. ?? Jolene Azevedo APRN IMG IR ORDERABLES * Anaerobic Culture (09/06/2017 1:25 PM EDT) Anaerobic Culture No anaerobic organisms isolated [facility] Fluid specimen (specimen) 09/06/2017 1:25 PM EDT 09/06/2017 2:03 PM EDT Comment:FLUID COLLECTION IN THE LEFT BREAST S/P BREAST RECON Narrative Resulting Agency Comment Spec In Lab Trinh Coates MD MICROBIOLOGY - GENER AL ORDERABLES Performing Organization Address City/[facility]/ZIP Co de Phone Number [facility] [place] [address] * (ABNORMAL) Body Fluid Culture, Aerobic (09/06/2017 1:25 PM EDT) Body Fluid Culture Few Escherichia coli(A) [facility] Gram Stain Cytocentrifuge Gram Stain performed Many White Blood Cells seen Rare Gram Positive Cocci seen (A) [facility] Organism Escherichia coli(A) [facility] Organism Gram Positive Cocci(A) [facility] Fluid specimen (specimen) 09/06/2017 1:25 PM [...] - GENER AL ORDERABLES Performing Organization Address City/[facility]/ZIP Co de Phone Number [facility] [place] [address] documented in this encounter Visit Diagnoses Diagnosis [...] mL/hr documented in this encounter Care Teams Transition Rn Relationship Specialty Start Date End Date Trinh Coates MD [address] [place] [address] PCP - General 01/11/10 documented as of this encounter
--- OUTSIDE RECORDS SUMMARY | 2023-09-25 11:48 | XMS_ITS | Encounter Summary ---
Author Organization [facility] [place] [address] Care Team Providers Care Microsoft Crm Developer Name Role Phone Trinh Coates MD Primary Care Provider [phone] Reason for Visit * Reason Comments Follow Up Surgery Encounter Details Date Type Department Care Team (Late st Contact Info) Description 09/13/2017 11:20 AM EDT Office [place] [address] Jolene Azevedo APRN [facility] [place] [address] Surgery follow-up Social History Tobacco Use Types [...] reconstruction with attempted SALVADOR flaps, eventual tissue fabrication operator placement with [place] Artoura 600 cc expanders placed bilaterally and filled with 450 cc of methyleneblue impregnated saline.) Complications: right parietal and visceral pleural tear, arterial flap failure bilaterally Date of surgery: 06/22/17 Procedure(s) left breast wound debridement, excision and closure. Debridement of umbilicus. Deflation of fabrication operator volume, This leaves 450 cc in the left tissue fabrication operator and 500 cc on the right [...] AM EST Appointment Mammography/DXA at [place] [phone] Ladi Mendosa MD [facility] [place] [address] 01/30/2024 11:30 AM EST Office Visit Dermatology at [address] [address] Nilda Luis MD [facility] [place] [address] 02/14/2024 7:30 AM EST Appointment Radiology at [place] [phone] Joanna Watts MD [facility] [place] [address] documented as of this encounter Procedures Procedure Name Priority Date/Time Associated Diagnosis Comments HEMOGRAM Routine 09/13/2017 12:42 PM EDT Surgery follow-up DIFFERENTIAL, AUTOMATED Routine 09/13/2017 12:42 PM EDT Surgery follow-up CBC (WITH DIFF) Routine 09/13/2017 12:42 PM EDT Surgery follow-up documented in this encounter Results * (ABNORMAL) Differential, Automated (09/13/2017 12:42 PM EDT) Neutrophil % 71.7 % [facility] Neutrophil Absolute 12.25(H) 1.70 - 6.10 x10(3)/mc L [facility] Lymph % 7.5 % [facility] Lymphocytes Abs 1.3 0.9 - 3.2 x10(3)/ L [facility] Monocyte % 14.4 % [facility] Monocyte Abs 2.5(H) 0.3 - 0.9 x10(3)/ L [facility] Eos % 3.2 % [facility] Eosinophils Abs 0.6(H) 0.0 - 0.4 x10(3)/mc L [facility] Basophil % 1.7 % [facility] Baso Absolute 0.3(H) 0.0 - 0.1 x10(3)/ L [facility] Immature Gran % 1.50 % [facility] Comment: Immature granulocytes(IG's)percentage and absolute count will include metamyelocytes, myelocytes, and promyelocytes. Blood smears from CBCs yielding IG's will be scanned manually for concordance. If this scan disagrees with the automated IG or if promyelocytes are noted, a manual differential will be performed. Immature Gran Absolute 0.25(H) 0.00 - 0.04 x10(3)/ L [facility] Blood specimen (specimen) 09/13/2017 12:42 PM EDT 09/13/2017 12:54 PM EDT Narrative Resulting Agency Comment Spec In Lab Jolene Azevedo APRN HEMATOLOGY ORDERABLE S [facility] [place] [address] * (ABNORMAL) Hemogram (09/13/2017 12:42 PM EDT) White Blood Cell 17.1(H) 4.0 - 9.5 x10(3)/mc L [facility] Red Blood Cell 3.53(L) 4.00 - 5.21 x10(6)/mc L [facility] Hemoglobin 10.8(L) 11.7 - 15.5 gm/dL [facility] Hematocrit 32.6(L) 35.7 - 45.8 % [facility] Mean Cell Volume 92.4 82.6 - 94.4 fL [facility] Mean Cell Hemoglobin 30.6 27.1 - 32.0 pg [facility] Mean Cell Hemoglobin Concentration 33.1 31.7 - 35.0 gm/dL [facility] Platelet 573(H) 145 - 357 x10(3)/mc L [facility] RDW Standard Deviation 54.9(H) 37.0 - 46.0 fL [facility] RDW coefficient of variation 16.7(H) 11.5 - 14.1 % [facility] Mean Platelet Volume 8.6 7.6 - 12.9 fL [facility] NRBC% auto 0.0 % [facility] NRBC Absolute 0.000 0.000 - 0.000 x10(3)/mc L [facility] Blood specimen (specimen) 09/13/2017 12:42 PM EDT 09/13/2017 12:54 PM EDT Narrative Resulting Agency Comment Spec In Lab Jolene Azevedo APRN HEMATOLOGY ORDERABLE S [facility] [place] [address] documented in this encounter Visit Diagnoses Diagnosis Surgery follow-up Follow-up examination, following unspecified surgery documented in this encounter Care Teams Microsoft Crm Developer Relationship Specialty Start Date End Date Trinh Coates MD [address] [facility] [place] [address] PCP - General 01/11/10 documented as of this encounter
--- OUTSIDE RECORDS SUMMARY | 2023-09-25 11:48 | XMS_ITS | Encounter Summary ---
Author Organization [facility] Address [facility] [place] [address] Care Team Providers Care Orthopedic Mechanic Name Role Phone rTinh Coates MD Primary Care Provider [phone] Reason for Visit * Reason Comments Follow Up Surgery check breast drain Encounter Details Date Type Department Care Team (Late st Contact Info) Description 09/26/2017 10:00 AM EDT Office Visit [place] [address] Jolene Azevedo APRN [facility] [place] [address] Surgery follow-up Social History Tobacco Use Types [...] 04/26/17 Procedure(s): Bilateral breast reconstruction with attempted SALVAODR flaps, eventual tissue operations analyst placement with [place] Artoura 600 cc expanders placed bilaterally and filled with 450 cc of methyleneblue impregnated saline.) Complications: right parietal and visceral pleural tear, arterial flap failure bilaterally Date of surgery: 06/22/17 Procedure(s) left breast wound debridement, excision and closure. Debridement of umbilicus. Deflation of operations analyst volume, This leaves 450 cc in the left tissue operations analyst and 500 cc on the right side [...] 01/22/2024 10:30 AM EST Appointment Mammography/[place] [address] Ladi Mendosa MD [facility] [address] [place] [address] 01/30/2024 11:30 AM EST Office Visit Dermatology at [facility] [address] [place] [address] Nilda Luis MD [facility] [place] [address] 02/14/2024 7:30 AM EST Appointment [place] [address] Joanna Watts MD [facility] [place] [address] documented as of this encounter Visit Diagnoses Diagnosis Surgery follow-up Follow-up examination, following unspecified surgery documented in this encounter Care Teams Orthopedic Mechanic Relationship Specialty Start Date End Date Trinh Coates MD [facility] [address] [facility] [address] [place] [address] PCP - General 01/11/10 documented as of this encounter
--- OUTSIDE RECORDS SUMMARY | 2023-09-25 11:48 | XMS_ITS | Encounter Summary ---
Author Organization [facility] Address [facility] [place] [address] Care Team Providers Care Computer Systems Information Director Name Role Phone Trinh Coates MD Primary Care Provider [phone] Encounter Details Date Type Department Care Team (Late st Contact Info) Description 10/01/2017 Orders Only Hematology [place] [phone] Sally Ren APRN [facility] [place] [address] Social History Tobacco Use Types Packs/Day Years [...] 01/22/2024 10:30 AM EST Appointment Mammography[place] [address] Ladi Mendosa MD [facility] [place] [address] 01/30/2024 11:30 AM EST Office Visit Dermatology at [facility] [address] [place] [address] Nilda Luis MD [facility] [place] [address] 02/14/2024 7:30 AM EST [place] [phone] Joanna Watts MD [facility] [place] [address] documented as of this encounter Visit Diagnoses Not on filedocumented in this encounter Care Teams Computer Systems Information Director Relationship Specialty Start Date End Date Trinh Coates MD [facility] [address] [address] PCP - General 01/11/10 documented as of this encounter
--- OUTSIDE RECORDS SUMMARY | 2023-09-25 11:48 | XMS_ITS | Encounter Summary ---
Author Organization [facility] Address [facility] [place] [address] Care Team Providers Care Prep Person Name Role Phone Trinh Coates MD Primary Care Provider [phone] Encounter Details Date Type Department Care Team (Late st Contact Info) Description 10/07/2017 Orders Only Hematology [place] [phone] García Chapin MD [facility] DR HEMATOLOGY/[place] [address] Social History Tobacco Use Types Packs/Day Years [...] 01/22/2024 10:30 AM EST Appointment Mammography[place] [phone] Ladi Mendosa MD [facility] DR HEMATOLOGY [place] [address] 01/30/2024 11:30 AM EST Office Visit Dermatology at [facility] [address] [place] [address] Nilda Luis MD [facility] [place] [address] 02/14/2024 7:30 AM EST Appointment [place] [phone] Joanna Watts MD [facility] [place] [address] documented as of this encounter Visit Diagnoses Not on filedocumented in this encounter Care Teams Prep Person Relationship Specialty Start Date End Date Trinh Coates MD [facility] [address] [address] [address] PCP - General 01/11/10 documented as of this encounter
--- OUTSIDE RECORDS SUMMARY | 2023-09-25 11:48 | XMS_ITS | Encounter Summary ---
Author Organization [facility] Address [facility] [place] [address] Care Team Providers Care Public Works Supervisor Name Role Phone Trinh Coates MD Primary Care Provider [phone] Encounter Details Date Type Department Care Team (Late st Contact Info) Description 09/19/2017 Orders Only Hematology [place] [phone] Sally Ren APRN [facility] [place] [address] Social History Tobacco Use Types Packs/Day Years [...] EST Appointment Mammography/[place] [address] Ladi Mendosa MD [facility] [address] [place] [address] 01/30/2024 11:30 AM EST Office Visit Dermatology at [facility] [address] [place] [address] Nilda Luis MD [facility] [place] [address] 02/14/2024 7:30 AM EST Appointment [place] [phone] Joanna Watts MD [facility] [place] [address] documented as of this encounter Visit Diagnoses Not on filedocumented in this encounter Care Teams Public Works Supervisor Relationship Specialty Start Date End Date Trinh Coates MD [facility] [address] [address] [address] PCP - General 01/11/10 documented as of this encounter
--- OUTSIDE RECORDS SUMMARY | 2023-09-25 11:49 | XMS_ITS | Encounter Summary ---
[place] [address] Care Team Providers Care Senior Advisory Name Role Phone Trinh Coates MD Primary Care Provider [phone] Reason for Referral * Diagnostic Test (Routine) - Closed Specialty Diagnoses / Procedures Referred By Contac t Referred To Contact Radiology Diagnoses S/P breast reconstruction Procedures IR Breast Drain Placement IR All Drainage Procedures Jolene Azevedo APRN [facility] [place] [address] [place] [address] Referral ID Status Reason Start Date Expiration Date V isits Requested Visits Authorized [id number] Closed Specialty Service Requested 06/26/2017 06/26/2018 1 1 Reason for Visit * Diagnostic Test (Routine) - Closed Specialty Diagnoses / Procedures Referred By Diamante t Referred To Contact Radiology Diagnoses S/P breast reconstruction Procedures IR Breast Drain Placement IR All Drainage Procedures Jolene Azevedo TRANSCRIBING [employer]PERAT[employer] SUPERVISOR [facility] [place] [address] [place] [address] Referral ID Status Reason Start Date Expiration Date V isits Requested Visits Authorized [id number] Closed Specialty Service Requested 06/26/2017 06/26/2018 1 1 Encounter Details Date Type Department Care Team (Latest Contact Info) Description 06/26/2017 2:26 PM EDT - 06/26/2017 11:59 PM EDT Hospital [place] [address] Jolene Azevedo APRN [facility] [place] [address] S/P breast reconstruction Discharge Disposition: Home Social [...] Wong RN - 06/26/2017 3:51 PM EDT [facility] Vascular [...] is during regular office hours, please call [phone]. If it is after regular office hours, or on weekends or holidays, please call [phone] and ask to speak to the [employer] microphone operator for Interventional Radiology. You have received medication [...] as needed. 60 g 3 04/16/2014 10/20/2019 KLOR-CON M20 20 mEq extended release tablet 2 times daily. 10/31/2012 documented as of this encounter Progress Notes * Agapito Schrader RN - 06/26/2017 11:59 PM EDT Interventional and Vascular Radiology Post-Procedure Call Name: Wendy Sandoval Age: 52 y.o. Sex; Female Date of : 1965 (home) Telephone Information: PCP Trinh Coates MD [phone] Date/Time of call: 2017/8:50 AM Procedure: Breast [...] of : 1965 AGE 52 y.o. Address: [address] [place] [phone] (home) [phone] (work) Mobile: Telephone Information: Referring Provider: Jolene Azevedo REASON FOR VISIT: Date/time of procedure: Pertinent info from Pre-call (if any): Labs ordered: Med's stopped: Where will study be performed? [facility] Laterality Left Reason for exam and [...] of left breast in female, estrogen receptor mhysprsaE09.412, Z17.0 ??? S/P breast reconstruction Z98.82 ??? Surgery follow-up Z09 ??? Abdominal wound dehiscence T81.30XA Pertinent PSH: Past Surgical History: Procedure Laterality Date ??? BREAST BIOPSY Right 11/01 ??? SECTION x 2 ??? HAND SURGERY Right ??? PRG EMG, LARYNX N/A 11/02/2015 FACIAL NERVE MONITORING, SETUP LARYNGEAL performed by Valentina Lucas MD at [facility] MAIN OR ??? PRO BREAST RECONSTRUC W FREE FLAP Bilateral 04/26/2017 @BREAST RECONSTRUCTION W/ FREE FLAP, SUSAN (WRVU 42.58) performed by Andre Gimenez MD at [facility] [place] ??? PRO BREAST RECONSTRUC W TISS EXPANDR Bilateral 04/26/2017 BREAST RECONSTRUCTION, IMMEDIATE OR DELAYED, W/ TISSUE BEAD PREPARER, INCLUDING SUBSEQUENT EXPANSION (WRVU 18.5) performed by Andre Gimenez MD at [facility] MAIN OR ? ? PRO DEBRIDEMENT [...] R drain removed. Fentanyl 50 mcg IV? [id number] Left breast aspiration/ 30 ml Fentanyl 100 [...] Procedure: Drainage of fluid around LEFT breast disability coordinator Procedure Indication: Recurrent, palpable fluid around disability coordinator Presenting Diagnosis/ Complaint: Wendy Sandoval is a [...] debridement, excision and closure, with decrease in disability coordinator on left to 450cc. Postoperative visit today demonstrated a palpable mass around the disability coordinator on the LEFT; US showed small fluid collection. Past Medical/Surgical History: Patient Active Problem List Diagnosis Code ??? Hypertension I10 ??? Depression F32.9 ??? Obstructive sleep apnea (adult) (pediatric) G47.33 ??? OA (osteoarthritis) M19.90 ??? Overweight(278.02) E66.3 ??? Hyperparathyroidism E21.3 ??? Malignant neoplasm of upper-outer quadrant of left breast in female, estrogen receptor zwjrwhxzS89.412, Z17.0 ??? S/P breast reconstruction Z98.82 ??? [...] LARYNGEAL performed by Valentina Lucas MD at [facility] OR ??? PRO BREAST RECONSTRUC W FREE FLAP Bilateral 04/26/2017 @BREAST RECONSTRUCTION W/ FREE FLAP, SUSAN (WRVU 42.58) [facility] ??? PRO BREAST RECONSTRUC W TISS EXPANDR Bilateral 04/26/2017 BREAST RECONSTRUCTION, IMMEDIATE OR DELAYED, W/ TISSUE BEAD PREPARER, INCLUDING SUBSEQUENT EXPANSION (WRVU 18.5) performed by [...] 9.15) performed by Andre Gimenez MD at [facility] MAIN OR ??? PRO MASTECTOMY, SIMPLE, [...] for recurrent fluid collection aroundLEFT breast tissue disability coordinator. Insufficient volume for drain placement, but can [...] debridement, excision and closure, with decrease in disability coordinator on left to 450cc. ?? Postoperative visit today demonstrated a palpable mass around the disability coordinator on the LEFT; US showed small fluid [...] 01/22/2024 10:30 AM EST Appointment Mammography/DXA at [place] [phone] Ladi Mendosa MD [facility] HEMATOLOGY [place] [address] 01/30/2024 11:30 AM EST Office Visit Dermatology at [address] [address] Nilda Luis MD [facility] [place] [address] 02/14/2024 7:30 AM EST Appointment [place] [address] Joanna Watts MD [facility] [place] [address] documented as of this encounter Procedures Procedure [...] debridement, excision and closure, with decrease in disability coordinator on left to 450cc. ?? Postoperative visit today demonstrated a palpable mass around the disability coordinator on the LEFT; US showed small fluid [...] EDT) Abscess/Wound Aspirate Culture Few Escherichia coli(A) [facility] Gram Stain Moderate White Blood Cells seen No microorganisms seen. (A) [facility] Organism Escherichia coli(A) [facility] Fluid specimen (specimen) LEFT [...] Azevedo APRN MICROBIOLOGY - GENER AL ORDERABLES [facility] [place] [place] [address] documented in this encounter Visit Diagnoses Diagnosis S/P breast reconstruction Breast replaced by other means documented in this encounter Administered Medications Inactive Administered Medications - up to 3 most recent administrations Medication Order MAR Action Action Date Dose Rate Site fentaNYL 50 mcg/mL multi-dose injection 25-50 mcg, Intravenous, EVERY 5 MIN PRN, Starting on Sun06/26/17 at 1508, Until Sun06/26/17 at 1553, Pain, per unit protocol, - [...] mL/hr documented in this encounter Care Teams Senior Advisory Relationship Specialty Start Date End Date Trinh Coates MD [address] [place] [address] PCP - General 01/11/10 documented as of this encounter
--- OUTSIDE RECORDS SUMMARY | 2023-09-25 11:49 | XMS_ITS | Encounter Summary ---
Author Organization [facility] Address [facility] [place] [address] Care Team Providers Care Plate Worker Name Role Phone Trinh Coates MD Primary Care Provider [phone] Reason for Visit * Treatment/Therapy Plan Authorization (Routine) - Closed Specialty Diagnoses / Procedures Referred By Diamante t Referred To Contact Hematology and Oncology Diagnoses Malignant neoplasm of upper-outer quadrant of left breast in female, estrogen receptor positive Procedures TC PALONOSETRON HCL, 25MCG, INJECTION (ALOXI) TC DOXORUBICIN HCL, 10MG, INJECTION (ADRIAMYCIN) TC CYCLOPHOSPHAMIDE, 100MG (CYTOXAN) TC PEGFILGRASTIM, 6MG, INJECTION Gustavo Mota MD [facility] DR HEMATOLOGY/[place] [address] [address] Referral ID Status Reason Start Date Expiration Date Visits Re quested Visits Authorized [id number] Closed 07/02/2017 07/02/2018 12 12 Encounter Details Date Type Department Care Team (Latest Contact Info) Description 07/20/2017 11:20 AM EDT - 07/20/2017 11:59 PM EDT Hospital Encounter Hematology [place] [address] Malignant neoplasm of upper-outer [...] EST Appointment Mammography/[place] [address] Ladi Mendosa MD [facility] [place] [address] 01/30/2024 11:30 AM EST Office Visit Dermatology at [address] [phone] Nilda Luis MD [facility] [place] [address] 02/14/2024 7:30 AM EST Appointment [place] [address] Joanna Watts MD [facility] NEUROSURGERY [place] [phone] documented as of this encounter Procedures Procedure Name Priority Date/Time Associated Diagnosis Comments POTASSIUM STAT 07/20/2017 12:05 PM EDT S/P breast reconstruction, bilateral documented in this encounter Results * (ABNORMAL) Potassium (07/20/2017 12:05 PM EDT) Potassium 3.4(L) 3.5 - 5.0 mmol/L [facility] [...] In Lab Dave Ortiz MD CHEMISTRY ORDERABLES [facility] [place] [address] documented in this encounter Visit Diagnoses Diagnosis [...] Job Aid: Adult Flushing & Catheter Care (2158) job aid for additional information regarding guidelines and administration., Routine Given 07/20/2017 12:04 PM EDT 20 mLs documented in this encounter Care Teams Plate Worker Relationship Specialty Start Date End Date Trinh Coates MD [facility] [address] [place] [address] PCP - General 01/11/10 documented as of this encounter
--- OUTSIDE RECORDS SUMMARY | 2023-09-25 11:49 | XMS_ITS | Encounter Summary ---
Author Organization [facility] Address [facility] [place] [address] Care Team Providers Care Snowboard Instructor Name Role Phone Trinh Coates MD Primary Care Provider [phone] Encounter Details Date Type Department Care Team (Latest Contact Info) Description 07/03/2017 1:30 PM EDT - 07/03/2017 11:59 PM EDT Hospital En[place] [address] Jolene Azevedo APRN [facility] [place] [address] Surgery follow-up Discharge Disposition: Home Social History [...] 01/22/2024 10:30 AM EST Appointment Mammography/[place] [phone] Ladi Mendosa MD [facility] DR HEMATOLOGY [place] [address] 01/30/2024 11:30 AM EST Office Visit Dermatology at [facility] [address] [place] [address] Nilda Luis MD [facility] [place] [address] 02/14/2024 7:30 AM EST Appointment Radiology at [facility] [place] [address] Joanna Watts MD [facility] [place] [address] documented as of this encounter Procedures Procedure [...] surgery documented in this encounter Care Teams Snowboard Instructor Relationship Specialty Start Date End Date Trinh Coates MD [address] [facility] [address] [place] [address] PCP - General 01/11/10 documented as of this encounter
--- OUTSIDE RECORDS SUMMARY | 2023-09-25 11:49 | XMS_ITS | Encounter Summary ---
Author Organization [facility] [place] [address] Care Team Providers Care Sander Wooden Pencils Name Role Phone Trinh Coates MD Primary Care Provider [phone] Encounter Details Date Type Department Care Team (Latest Contact Info) Description 08/09/2017 9:44 AM EDT - 08/09/2017 11:59 PM EDT Hospital Encounter Hematology [place] [address] Malignant neoplasm of upper-outer quadrant of left [...] AM EST Appointment Mammography/DXA at [place] [phone] Ladi Mendosa MD [facility] [place] [address] 01/30/2024 11:30 AM EST Office Visit Dermatology at [address] [phone] Nilda Luis MD [facility] [place] [address] 02/14/2024 7:30 AM EST [place] [address] Joanna Watts MD [facility] [place] [address] documented as of this encounter Procedures Procedure [...] estrogen receptor positive COMPREHENSIVE METABOLIC PANEL STAT 08/09/2017 10:20 AM EDT Malignant neoplasm of upper-outer quadrant of left breast in female, estrogen receptor positive documented in this encounter Results * Scan, Peripheral Blood (08/09/2017 10:20 AM EDT) Plat estimate Increased [facility] RBC Morphology Normal [facility] Plat, Giant Less than 1 /HPF [facility] Blood specimen (specimen) 08/09/2017 10:20 AM EDT 08/09/2017 11:04 AM EDT Narrative Resulting Agency Comment Spec In Lab Sally Ren APRN HEMATOLOGY ORDERABL ES [facility] [place] [address] * (ABNORMAL) Differential, Automated (08/09/2017 10:20 AM EDT) Neutrophil % 61.8 % [facility] Neutrophil Absolute 7.02(H) 1.70 - 6.10 x10(3)/mc L [facility] Lymph % 14.6 % [facility] Lymphocytes Abs 1.7 0.9 - 3.2 x10(3)/mc L [facility] Monocyte % 12.7 % [facility] Monocyte Abs 1.4(H) 0.3 - 0.9 x10(3)/mc L [facility] Eos % 2.0 % [facility] Eosinophils Abs 0.2 0.0 - 0.4 x10(3)/mc L [facility] Basophil % 2.6 % [facility] Baso Absolute 0.3(H) 0.0 - 0.1 x10(3)/mc L [facility] Immature Gran % 6.30 % [facility] Comment: Immature granulocytes(IG's)percentage and absolute count will include metamyelocytes, myelocytes, and promyelocytes. Blood smears from CBCs yielding IG's will be scanned manually for concordance. If this scan disagrees with the automated IG or if promyelocytes are noted, a manual differential will be performed. Immature Gran Absolute 0.72(H) 0.00 - 0.04 x10(3)/ L [facility] Blood specimen (specimen) 08/09/2017 10:20 AM EDT 08/09/2017 11:04 AM EDT Narrative Resulting Agency Comment Spec In Lab Sally Ren ATHLETIC SCOUT HEMATOLOGY ORDERABL ES [facility] [place] [address] * (ABNORMAL) Hemogram (08/09/2017 10:20 AM EDT) White Blood Cell 11.4(H) 4.0 - 9.5 x10(3)/[facility] Red Blood Cell 4.33 4.00 - 5.21 x10(6)/[facility] Hemoglobin 12.9 11.7 - 15.5 gm/dL [facility] Hematocrit 38.7 35.7 - 45.8 % [facility] Mean Cell Volume 89.4 82.6 - 94.4 fL [facility] Mean Cell Hemoglobin 29.8 27.1 - 32.0 pg [facility] Mean Cell Hemoglobin Concentration 33.3 31.7 - 35.0 gm/dL [facility] Platelet 486(H) 145 - 357 x10(3)/ L [facility] RDW Standard Deviation 44.2 37.0 - 46.0 [facility] RDW coefficient of variation 13.7 11.5 - 14.1 % [facility] Mean Platelet Volume 8.8 7.6 - 12.9 fL [facility] NRBC% auto 0.2 % [facility] NRBC Absolute 0.020(H) 0.000 - 0.000 x10(3)/ L [facility] Blood specimen (specimen) 08/09/2017 10:20 AM EDT 08/09/2017 11:04 AM EDT Narrative Resulting Agency Comment Spec In Lab Sally Ren ATHLETIC SCOUT HEMATOLOGY ORDERABL ES [facility] [address] [place] [address] * (ABNORMAL) Comprehensive metabolic panel (non-fasting) (08/09/2017 10:20 AM EDT) Glucose 155 65 - 199 mg/dL [facility] Comment:Diabetes: >=200 mg/d L plus symptoms Blood Urea Nitrogen 18 8 - 18 mg/dL [facility] Creatinine 0.95 0.70 - 1.20 mg/dL [facility] Sodium 140 135 - 145 mmol/L [facility] Potassium 3.0(Criti kee) 3.5 - 5.0 mmol/L [facility] Comment: Result rechecked. Called by: ROXANNE, Read back by: Argentina Conner, Date/Time:08/09/17 11:57. Please note: ??Patients with WBC >100,000 may have falsely elevated Potassium levels. ??For accurate Potassium quantification in these patients send serum separator tube (gold top) for subsequent determinations. ??Contact the Clinical Chemistry Laboratory if there are any questions. Chloride 98 98 - 107 mmol/L [facility] Carbon Dioxide 27 22 - 31 mmol/L [facility] Anion Gap 15 5 - 15 mmol/L [facility] Calcium 8.9 8.5 - 10.5 mg/dL [facility] Protein, Total 6.9 6.1 - 8.0 gm/dL [facility] Albumin 4.1 3.2 - 5.2 gm/dL [facility] Aspartate Aminotransferase 16 0 - 30 unit/L [facility] Alanine Aminotransferase 21 0 - 30 unit/L [facility] Alkaline Phosphatase 138(H) 40 - 104 unit/L [facility] Bilirubin, Total <0.2(L) 0.2 - 1.3 mg/dL [facility] Est Glomerular Filtration Rate 68 >=60 mL/min/1. 73 m?? [facility] Comment: The eGFR was calculated using the CKD-EPI equation. As with all creatinine based estimates of kidney function, eGFR values calculated with the CKD-EPI equation are not accurate in patients with acute kidney failure, extremes of body mass or the acutely ill. http://[employer]/LightTablenkdep http://[employer]/LightTablenkf eGFR 79 >=60 mL/min/1. 73 m?? [facility] Comment: The eGFR was calculated using the CKD-EPI equation. As with all creatinine based estimates of kidney function, eGFR values calculated with the CKD-EPI equation are not accurate in patients with acute kidney failure, extremes of body mass or the acutely ill. http://[employer]/LightTablenkdep http://[employer]/LightTablenkf Blood specimen (specimen) 08/09/2017 10:20 AM EDT 08/09/2017 11:04 AM EDT Narrative Resulting Agency Comment Spec In Lab Sally Ren ATHLETIC SCOUT CHEMISTRY ORDERABLE S Performing Organization Address City/State/[facility] Co de Phone Number [facility] [place] [address] documented in this encounter Visit Diagnoses Diagnosis [...] mLs documented in this encounter Care Teams Sander Wooden Pencils Relationship Specialty Start Date End Date Trinh Coates MD [address] [place] [address] PCP - General 01/11/10 documented as of this encounter
--- OUTSIDE RECORDS SUMMARY | 2023-09-25 11:49 | XMS_ITS | Encounter Summary ---
Author Organization [facility] Address [facility] [place] [address] Care Team Providers Care Levee Superintendent Name Role Phone Trinh Coates MD Primary Care Provider [phone] Reason for Visit * Reason Comments Follow-up Encounter Details Date Type Department Care Team (Late st Contact Info) Description 07/20/2017 1:00 PM EDT Office Visit Hematology [place] [address] Sally Ren APRN [facility] [place] [address] Malignant neoplasm of upper-outer quadrant of left [...] this encounter Progress Notes * Sally Ren, TABULAR TYPIST - 07/20/2017 1:00 PM EDT Subjective: Patient [...] was unremarkable. Core biopsy demonstrated invasive cancer, ER/GA positive, HER- 2/pat negative. Breast MRI demonstrated [...] Wendy Sandoval is a 52 y.o. with ER/GA positive, HER-2/pat negative left breast cancer. She [...] AM EST Appointment Mammography/[place] [phone] Ladi Mendosa MD [facility] HEMATOLOGY [place] [address] 01/30/2024 11:30 AM EST Office Visit Dermatology at [facility] [address] [place] [address] Nilda Luis MD [facility] [address] 02/14/2024 7:30 AM [place] [phone] Joanna Watts MD [facility] [place] [address] documented as of this encounter Visit Diagnoses Diagnosis Malignant neoplasm of upper-outer quadrant of left breast in female, estrogen receptor positive- Primary Hypokalemia Hypopotassemia documented in this encounter Care Teams Levee Superintendent Relationship Specialty Start Date End Date Trinh Coates MD [facility] [address] [facility] [address] [place] [address] PCP - General 01/11/10 documented as of this encounter
--- OUTSIDE RECORDS SUMMARY | 2023-09-25 11:49 | XMS_ITS | Encounter Summary ---
Author Organization [facility] Address [facility] [place] [address] Care Team Providers Care Check Processing Clerk Name Role Phone Trinh Coates MD Primary Care Provider [phone] Encounter Details Date Type Department Care Team (Latest Contact Info) Description 06/26/2017 12:41 PM EDT - 06/26/2017 2:25 PM EDT Hospital [place] [address] Jolene Azevedo APRN [facility] [place] [address] Discharge Disposition: Home Social History Tobacco Use [...] 01/22/2024 10:30 AM EST Appointment Mammography[place] [address] Ladi Mendosa MD [facility] HEMATOLOGY [place] [address] 01/30/2024 11:30 AM EST Office Visit Dermatology at [facility] [address] [place] [phone] Nilda Luis MD [facility] [place] [address] 02/14/2024 7:30 AM [place] [address] Joanna Watts MD [facility] [place] [address] documented as of this encounter Procedures Procedure [...] on filedocumented in this encounter Care Teams Check Processing Clerk Relationship Specialty Start Date End Date Trinh Coates MD [facility] [address] [place] [address] PCP - General 01/11/10 documented as of this encounter
--- OUTSIDE RECORDS SUMMARY | 2023-09-25 11:49 | XMS_ITS | Encounter Summary ---
Author Organization [facility] Address [facility] [place] [address] Care Team Providers Care Scrum Master Name Role Phone Trinh Coates MD Primary Care Provider [phone] Reason for Visit * Reason Comments Follow Up Surgery expansion, Encounter Details Date Type Department Care Team (Late st Contact Info) Description 06/20/2017 11:00 AM EDT Office [place] [address] Jolene Azevedo APRN [facility] [place] [address] Surgery follow-up Social History Tobacco Use Types [...] reconstruction with attempted SALVADOR flaps, eventual tissue swedger placement with [place] Artoura 600 cc expanders placed bilaterally [...] able to attend her daughter's graduation in [place] next week, and wonders if this is [...] breast wound. Possible abdominal wound debridement. CPT: 60235, 36004, 99050 Surgical site: breast Side: left Anesthesia: General [...] AM EST Appointment Mammography/DXA at [place] [phone] Ladi Mendosa MD [facility] [place] [address] 01/30/2024 11:30 AM EST Office Visit Dermatology at [address] [phone] Nilda Luis MD [facility] [place] [address] 02/14/2024 7:30 AM EST Appointment Radiology at [place] [phone] Joanna Watts MD [facility] [place] [address] documented as of this encounter Visit Diagnoses Diagnosis Surgery follow-up Follow-up examination, following unspecified surgery documented in this encounter Care Teams Scrum Master Relationship Specialty Start Date End Date Trinh Coates MD [address] [place] [address] PCP - General 01/11/10 documented as of this encounter
--- OUTSIDE RECORDS SUMMARY | 2023-09-25 11:49 | XMS_ITS | Encounter Summary ---
Author Organization [facility] Address [facility] [place] [address] Care Team Providers Care Drying Rack Changer Name Role Phone Trinh Coates MD Primary Care Provider [phone] Encounter Details Date Type Department Care Team (Late st Contact Info) Description 07/04/2017 [place]phone [place] [phone] Ann Marie Smalls Social History Tobacco Use [...] 01/22/2024 10:30 AM EST Appointment Mammography/[place] [address] Ladi Mendosa MD [facility] DR [place] [address] 01/30/2024 11:30 AM EST Office Visit Dermatology at [facility] [address] [place] [phone] Nilda Luis MD [facility] [address] 02/14/2024 7:30 AM [place] [phone] Joanna Watts MD [facility] [place] [address] documented as of this encounter Visit Diagnoses Not on filedocumented in this encounter Care Teams Drying Rack Changer Relationship Specialty Start Date End Date Trinh Coates MD [facility] [address] [place] [address] PCP - General 01/11/10 documented as of this encounter
--- OUTSIDE RECORDS SUMMARY | 2023-09-25 11:49 | XMS_ITS | Encounter Summary ---
Author Organization [facility] Address [facility] Margarita [facility] [place] [address] Care Team Providers Care Lead Javascript Developer Name Role Phone Trinh Coates MD Primary Care Provider [phone] Reason for Visit * Reason Comments Chemotherapy [...] [facility] DR HEMATOLOGY/[place] [address] [facility] [address] [place] [address] Referral ID Status Reason Start Date Expiration Date Visits Re quested Visits Authorized [id number] Closed 07/02/2017 07/02/2018 12 12 Encounter Details Date Type Department Care Team (Latest Contact Info) Description 08/09/2017 9:43 AM EDT Hospital Encounter [place]ology [place] [address] Malignant neoplasm of upper-outer quadrant [...] 01/22/2024 10:30 AM EST Appointment Mammography/[place] [phone] Ladi Mendosa MD [facility] [place] [address] 01/30/2024 11:30 AM EST Office Visit Dermatology at [facility] [address] [place] [address] Nilda Luis MD [facility] [place] [address] 02/14/2024 7:30 AM EST [place] [phone] Joanna Watts MD [facility] [place] [place] [address] documented as of this encounter Visit Diagnoses [...] Job Aid: Adult Flushing & Catheter Care (1190) job aid for additional information regarding guidelines [...] mg documented in this encounter Care Teams Lead Javascript Developer Relationship Specialty Start Date End Date Trinh Coates MD [facility] [address] [place] [address] PCP - General 01/11/10 documented as of this encounter
--- OUTSIDE RECORDS SUMMARY | 2023-09-25 11:49 | XMS_ITS | Encounter Summary ---
Author Organization [facility] Address [facility] Margarita [facility] [place] [address] Care Team Providers Care Occ Therapy Asst Name Role Phone Trinh Coates MD Primary Care Provider [phone] Encounter Details Date Type Department Care Team (Latest Contact Info) Description 06/11/2017 10:15 AM EDT Laboratory Appointment Lab [address] [place] [phone] Postoperative wound infection, initial encounter Social History [...] 01/22/2024 10:30 AM EST Appointment Mammography[place] [phone] Ladi Mendosa MD [facility] [place] [address] 01/30/2024 11:30 AM EST Office Visit Dermatology at [facility] [address] [place] [phone] Nilda Luis MD [facility] [place] [address] 02/14/2024 7:30 AM EST Appointment Radiology at [facility] [place] [phone] Joanna Watts MD [facility] [place] [address] documented as of this encounter Procedures Procedure Name Priority Date/Time Associated Diagnosis Comments HEMOGRAM Routine 06/11/2017 9:44 AM EDT Postoperative wound infection, initial encounter DIFFERENTIAL, AUTOMATED Routine 06/11/2017 9:44 AM EDT Postoperative wound infection, initial encounter CBC (WITH DIFF) Routine 06/11/2017 9:44 AM EDT Postoperative wound infection, initial encounter documented in this encounter Results * (ABNORMAL) Differential, Automated (06/11/2017 9:44 AM EDT) Neutrophil % 66.3 % [facility] Neutrophil Absolute 7.86(H) 1.70 - 6.10 x10(3)/mc L [facility] Lymph % 17.3 % [facility] Lymphocytes Abs 2.0 0.9 - 3.2 x10(3)/mc L [facility] Monocyte % 7.5 % [facility] Monocyte Abs 0.9 0.3 - 0.9 x10(3)/mc L [facility] Eos % 6.8 % [facility] Eosinophils Abs 0.8(H) 0.0 - 0.4 x10(3)/mc L [facility] Basophil % 1.2 % [facility] Baso Absolute 0.1 0.0 - 0.1 x10(3)/mc L [facility] Immature Gran % 0.90 % [facility] Comment: Immature granulocytes(IG's)percentage and absolute count will include metamyelocytes, myelocytes, and promyelocytes. Blood smears from CBCs yielding IG's will be scanned manually for concordance. If this scan disagrees with the automated IG or if promyelocytes are noted, a manual differential will be performed. Immature Gran Absolute 0.11(H) 0.00 - 0.04 x10(3)/mc L [facility] Blood specimen (specimen) 06/11/2017 9:44 AM EDT 06/11/2017 9:54 AM EDT Narrative Resulting Agency Comment Spec In Lab Yo Krueger MD HEMATOLOGY ORDERABLE S [facility] [place] [address] * (ABNORMAL) Hemogram (06/11/2017 9:44 AM EDT) White Blood Cell 11.9(H) 4.0 - 9.5 x10(3)/mc L [facility] Red Blood Cell 4.12 4.00 - 5.21 x10(6)/mc L [facility] Hemoglobin 12.6 11.7 - 15.5 gm/dL [facility] Hematocrit 37.9 35.7 - 45.8 % [facility] Mean Cell Volume 92.0 82.6 - 94.4 fL [facility] Mean Cell Hemoglobin 30.6 27.1 - 32.0 pg [facility] Mean Cell Hemoglobin Concentration 33.2 31.7 - 35.0 gm/dL [facility] Platelet 421(H) 145 - 357 x10(3)/mc L [facility] RDW Standard Deviation 43.7 37.0 - 46.0 fL [facility] RDW coefficient of variation 13.0 11.5 - 14.1 % [facility] Mean Platelet Volume 8.8 7.6 - 12.9 fL [facility] NRBC% auto 0.0 % [facility] NRBC Absolute 0.000 0.000 - 0.000 x10(3)/mc L [facility] Blood specimen (specimen) 06/11/2017 9:44 AM EDT 06/11/2017 9:54 AM EDT Narrative Resulting Agency Comment Spec In Lab Yo Krueger MD HEMATOLOGY ORDERABLE S [facility] [place] [address] documented in this encounter Visit Diagnoses Diagnosis Postoperative wound infection, initial encounter documented in this encounter Care Teams Occ Therapy Asst Relationship Specialty Start Date End Date Trinh Coates MD [address] [place] [address] PCP - General 01/11/10 documented as of this encounter
--- OUTSIDE RECORDS SUMMARY | 2023-09-25 11:49 | XMS_ITS | Encounter Summary ---
Author Organization Counts Include [facility] Address [facility] Margarita [facility] [place] [address] Care Team Providers Care Patient Case Manager Name Role Phone Trinh Coates MD Primary Care Provider [phone] Reason for Visit * Auth/Cert Specialty Diagnoses [...] Expiration Date Visits Re quested Visits Authorized [id number] 1 1 Encounter Details Date Type Department Care Team (Late st Contact Info) Description 06/22/2017 4:42 PM EDT Anesthesia Event [place] [address] Leola Anguiano MD [facility] DR [place] [address] Fermin Pinon, HOSPICE SPIRITUAL CARE COORDINATOR [facility] [place] [address] Anesthesia Record Procedure Summary Procedure Name Responsible [...] 1050; median vein (underside of arm), right; fcdq-dzm-nyzadr catheter system; 24 gauge, 3/4 in length; [...] 1631; median cubital vein (antecubital fossa), right; wjgd-vue-yoggst catheter system; 20 gauge, 1 in length; Natalya Murillo RN; distraction, intradermal injection, tolerated well, appears comfortable; 1; metacarpal vein (top of hand), right; 06/22/17; 192006/22/17 1631 by Natalya Murillo RN 06/22/171920 by Carrie Ahumada RN Supraglottic Mask Ventilation: Byron gonzalez (1); [...] Anguiano MD - 06/22/2017 6:28 PM EDT [facility] Department of Anesthesiology Post-procedure Note Patient: Wendy Sandoval Procedure Summary Date Anesthesia Start Anesthesia Stop Room / Location 06/22/17 1642 1748 [facility] OR [facility] OR Procedure Diagnosis Surgeon Responsible Provider DEBRIDEMENT SKIN AND SUBCU, BREAST (WRVU 1.01) (Abdomen); REVISION OF RECONSTRUCTED BREAST (WRVU 10.41) (Left Breast) (left breast wound ) Andre Gimenez MD Burchman, Corey A, MD All Anesthesia Providers: Anesthesiologist: Leola Anguiano MD HOSPICE SPIRITUAL CARE COORDINATOR: Thang Scott CRNA Most Recent Vitals: 06/22/17 1815 BP: (!) 143/102 Pulse: Resp: Temp: SpO2: 96% Pain 0 (06/22/17 1749) Patient Location: PACU/LOCATED WITHIN [facility] Level of Consciousness: Awake and [...] REHABILITATION CENTEROR ??? PRO BREAST RECONSTRUC W TISS EXPANDR Bilateral 04/26/2017 BREAST RECONSTRUCTION, IMMEDIATE OR DELAYED, W/ TISSUE DUMP ATTENDANT, INCLUDING SUBSEQUENT EXPANSION (WRVU 18.5) performed by Ander Gimenez MD at [facility] OR [...] APPROACH performed by Valentina Lucas MD at [facility] MAIN OR ??? SHOULDER SURGERY Left [...] risks discussed with patient. Plan discussed with HOSPICE SPIRITUAL CARE COORDINATOR. PAT Staff Note documented in this encounter Plan of Treatment Upcoming Encounters Date Type Department Care Team (Late st Contact Info) Description 01/22/2024 10:30 AM EST Appointment Mammography/[place] [address] Ladi Mendosa MD [facility] DR HEMATOLOGY [place] [address] 01/30/2024 11:30 AM EST Office Visit Dermatology at [facility] [address] [place] [phone] Nilda Luis MD [facility] [place] [address] 02/14/2024 7:30 AM EST Appointment [place] [phone] Joanna Watts MD [facility] [place] [address] documented as of this encounter Visit Diagnoses [...] mg documented in this encounter Care Teams Patient Case Manager Relationship Specialty Start Date End Date Trinh Coates MD [address] [place] [address] PCP - General 01/11/10 documented as of this encounter
--- OUTSIDE RECORDS SUMMARY | 2023-09-25 11:49 | XMS_ITS | Encounter Summary ---
Author Organization [facility] [place] [address] Care Team Providers Care Plasterer Apprentice Name Role Phone Trinh Coates MD Primary Care Provider [phone] Reason for Visit * Reason Comments Follow Up Surgery s/p left breast woun d debridement dos 06/22 Encounter Details Date Type Department Care Team (Late st Contact Info) Description 07/20/2017 10:40 AM EDT Office [place] [address] Jolene Azevedo APRN [facility] [place] [address] Surgery follow-up Social History Tobacco Use Types [...] reconstruction with attempted SALVADOR flaps, eventual tissue bottom pounder cement shoes placement with [place] Artoura 600 cc expanders placed bilaterally and filled with 450 cc of methyleneblue impregnated saline.) Complications: right parietal and visceral pleural tear, arterial flap failure bilaterally Date of surgery: 06/22/17 Procedure(s) left breast wound debridement, excision and closure. Debridement of umbilicus. Deflation of bottom pounder cement shoes volume, This leaves 450 cc in the left tissue bottom pounder cement shoes and 500 cc on the right side Chemotherapy: yes Radiation: TBD HPI: Pt reports she has generally been very well. She has not noticed any new drainage or swelling.She notes the bottom pounder cement shoes has been uncomfortable. She is wearing a soft bra. She will begin chemotherapy today, with infusions every other week. Examination: Patient is alert, conversant, comfortable, ambulating Left tissue bottom pounder cement shoes appears to have maintained its fill volume [...] 01/22/2024 10:30 AM EST Appointment Mammography/DXA at [place] [phone] Ladi Mendosa MD [facility] HEMATOLOGY [place] [address] 01/30/2024 11:30 AM EST Office Visit Dermatology at [address] [place] [phone] Nilda Luis MD [facility] [place] [address] 02/14/2024 7:30 AM EST Appointment Radiology at [place] [phone] Joanna Watts MD [facility] [place] [address] documented as of this encounter Visit Diagnoses Diagnosis Surgery follow-up Follow-up examination, following unspecified surgery documented in this encounter Care Teams Plasterer Apprentice Relationship Specialty Start Date End Date Trinh Coates MD [facility] [address] [place] [address] PCP - General 01/11/10 documented as of this encounter
--- OUTSIDE RECORDS SUMMARY | 2023-09-25 11:49 | XMS_ITS | Encounter Summary ---
Author Organization [facility] Address [facility] [place] [address] Care Team Providers Care Batching Operator Name Role Phone Trinh Coates MD Primary Care Provider Encounter Details Date Type Department Care Team (Latest Contact Info) Description 07/05/2017 9:00 AM EDT Laboratory Appointment Lab [address] [place] [phone] Malignant neoplasm of upper-outer quadrant of left [...] 01/22/2024 10:30 AM EST Appointment Mammography/[place] [phone] Ladi Mendosa MD [facility] DR [place] [address] 01/30/2024 11:30 AM EST Office Visit Dermatology at [facility] [address] [place] [phone] Nilda Luis MD [facility] [place] [address] 02/14/2024 7:30 AM EST [place] [phone] Joanna Watts MD [facility] [place] [address] documented as of this encounter Procedures Procedure [...] estrogen receptor positive COMPREHENSIVE METABOLIC PANEL STAT 07/05/2017 8:44 AM EDT Malignant neoplasm of upper-outer quadrant of left breast in female, estrogen receptor positive documented in this encounter Results * (ABNORMAL) Differential, Automated (07/05/2017 8:44 AM EDT) Neutrophil % 73.6 % [facility] Neutrophil Absolute 9.66(H) 1.70 - 6.10 x10(3)/mc L [facility] Lymph % 11.7 % [facility] Lymphocytes Abs 1.5 0.9 - 3.2 x10(3)/mc L [facility] Monocyte % 6.5 % [facility] Monocyte Abs 0.9 0.3 - 0.9 x10(3)/mc L [facility] Eos % 5.9 % [facility] Eosinophils Abs 0.8(H) 0.0 - 0.4 x10(3)/mc L [facility] Basophil % 1.4 % [facility] Baso Absolute 0.2(H) 0.0 - 0.1 x10(3)/ L [facility] Immature Gran % 0.90 % [facility] Comment: Immature granulocytes(IG's)percentage and absolute count will include metamyelocytes, myelocytes, and promyelocytes. Blood smears from CBCs yielding IG's will be scanned manually for concordance. If this scan disagrees with the automated IG or if promyelocytes are noted, a manual differential will be performed. Immature Gran Absolute 0.12(H) 0.00 - 0.04 x10(3)/ L [facility] Blood specimen (specimen) 07/05/2017 8:44 AM EDT 07/05/2017 8:51 AM EDT Narrative Resulting Agency Comment Spec In Lab Gustavo Mota MD HEMATOLOGY ORDERABLE S Performing Organization Address City/State/[facility] Co de Phone Number [facility] [place] [address] * (ABNORMAL) Hemogram (07/05/2017 8:44 AM EDT) White Blood Cell 13.2(H) 4.0 - 9.5 x10(3)/ L [facility] Red Blood Cell 3.97(L) 4.00 - 5.21 x10(6)/ L [facility] Hemoglobin 12.2 11.7 - 15.5 gm/dL [facility] Hematocrit 36.9 35.7 - 45.8 % [facility] Mean Cell Volume 92.9 82.6 - 94.4 fL [facility] Mean Cell Hemoglobin 30.7 27.1 - 32.0 pg [facility] Mean Cell Hemoglobin Concentration 33.1 31.7 - 35.0 gm/dL [facility] Platelet 414(H) 145 - 357 x10(3)/ L [facility] RDW Standard Deviation 45.3 37.0 - 46.0 fL [facility] RDW coefficient of variation 13.3 11.5 - 14.1 % [facility] Mean Platelet Volume 8.6 7.6 - 12.9 [facility] NRBC% auto 0.0 % [facility] NRBC Absolute 0.000 0.000 - 0.000 x10(3)/mc L [facility] Blood specimen (specimen) 07/05/2017 8:44 AM EDT 07/05/2017 8:51 AM EDT Narrative Resulting Agency Comment Spec In Lab Gustavo Mota MD HEMATOLOGY ORDERABLE S [facility] [place] [address] * (ABNORMAL) Comprehensive metabolic panel (non-fasting) (07/05/2017 8:44 AM EDT) Glucose 195 65 - 199 mg/dL [facility] Comment:Diabetes: >=200 mg/d L plus symptoms Blood Urea Nitrogen 16 8 - 18 mg/dL [facility] Creatinine 0.92 0.70 - 1.20 mg/dL [facility] Sodium 141 135 - 145 mmol/L [facility] Potassium 3.1(L) 3.5 - 5.0 mmol/L [facility] Comment: Please note: ??Patients with WBC >100,000 may have falsely elevated Potassium levels. ??For accurate Potassium quantification in these patients send serum separator tube (gold top) for subsequent determinations. ??Contact the Clinical Chemistry Laboratory if there are any questions. Chloride 99 98 - 107 mmol/L [facility] Carbon Dioxide 25 22 - 31 mmol/L [facility] Anion Gap 17(H) 5 - 15 mmol/L [facility] Calcium 8.5 8.5 - 10.5 mg/dL [facility] Protein, Total 6.7 6.1 - 8.0 gm/dL [facility] Albumin 3.6 3.2 - 5.2 gm/dL [facility] Aspartate Aminotransferase 16 0 - 30 unit/L [facility] Alanine Aminotransferase 21 0 - 30 unit/L [facility] Alkaline Phosphatase 112(H) 40 - 104 unit/L [facility] Bilirubin, Total 0.3 0.2 - 1.3 mg/dL [facility] Est Glomerular Filtration Rate >60 >=60 [facility] Comment: The reported eGFR should be multiplied by 1.2 for patients. The MDRD is not an appropriate measure of renal function for patients with body mass extremes or in patients with acute kidney failure. http://buySAFE/DHnkdep http://buySAFE/DHMCnkf Blood specimen (specimen) 07/05/2017 8:44 AM EDT 07/05/2017 8:51 AM EDT Narrative Resulting Agency Comment Spec In Lab Gustavo Mota MD CHEMISTRY ORDERABLES [facility] [place] [address] documented in this encounter Visit Diagnoses Diagnosis Malignant neoplasm of upper-outer quadrant of left breast in female, estrogen receptor positive documented in this encounter Care Teams Batching Operator Relationship Specialty Start Date End Date Trinh Coates MD [address] [place] [address] PCP - General 01/11/10 documented as of this encounter
--- OUTSIDE RECORDS SUMMARY | 2023-09-25 11:49 | XMS_ITS | Encounter Summary ---
Author Organization [facility] Address [facility] [place] [address] Care Team Providers Care Rn Float Name Role Phone Trinh Coates MD Primary Care Provider [phone] Reason for Visit * Reason Comments Follow Up Surgery check breast wound Encounter Details Date Type Department Care Team (Late st Contact Info) Description 06/11/2017 9:30 AM EDT Office [place] [address] Mali Lakhani MD [facility] [place] [address] S/P breast reconstruction, bilateral Social History Tobacco [...] SALVADOR flaps debrided and TE expanderbreast reconstruction ([place] Artura 600 cc expanders placed bilaterally and [...] she would like to do it in [place]. Her Mediport was not placed last week. [...] 01/22/2024 10:30 AM EST Appointment Mammography/DXA at [place] [phone] Ladi Mendosa MD [facility] [place] [address] 01/30/2024 11:30 AM EST Office Visit Dermatology at [address] [phone] Nilda Luis MD [facility] [place] [address] 02/14/2024 7:30 AM [place] [address] Joanna Watts MD [facility] [place] [address] documented as of this encounter Visit Diagnoses Diagnosis S/P breast reconstruction, bilateral Breast replaced by other means documented in this encounter Care Teams Rn Float Relationship Specialty Start Date End Date Trinh Coates MD [facility] [address] [place] [address] PCP - General 01/11/10 documented as of this encounter
--- OUTSIDE RECORDS SUMMARY | 2023-09-25 11:49 | XMS_ITS | Encounter Summary ---
Author Organization [facility] [place] [address] Care Team Providers Care Client Development Director Name Role Phone Trinh Coates MD Primary Care Provider [phone] Reason for Visit * Diagnostic Test (Routine) - Closed Specialty Diagnoses / Procedures Referred By Diamante marin Referred To Contact Radiology Diagnoses Malignant neoplasm of upper-outer quadrant of left breast in female, estrogen receptor positive Procedures IR Mediport Placement / Exchange Sally Ren APRN [facility] [place] [address] [place] [address] Referral ID Status Reason Start Date Expiration Date V isits Requested Visits Authorized [id number] Closed Specialty Service Requested 06/01/2017 06/01/2018 1 1 Encounter Details Date Type Department Care Team (Latest Contact Info) Description 07/03/2017 11:11 AM EDT - 07/03/2017 1:29 PM EDT Hospital En[place] [address] Sally Ren CAT SCANNER OPERATOR [facility] [place] [address] Discharge Disposition: Home Social History [...] from the original note were not included. [facility] Department of Vascular and Interventional Radiology Discharge [...] provided with an ID card stating the shop estimator and type of port you have. Please carry this with you in a safe place. Bandage: There is a sterile dressing over the port site consisting of small gauze with a clear dressing (Tegaderm or [id number] ). This dressing should be left in [...] is during regular office hours, please call [phone]. If it is after regular office hours, or on weekends or holidays, please call [phone] and ask to speak to the [place] director of admissions for Interventional Radiology. XXX You have received [...] (home) Telephone Information: PCP Trinh Coates MD [phone] Date/Time of call: July 04, 2017/8:30 AM [...] of : 1965 AGE 52 y.o. Address: [address] [place] [phone] (home) [phone] (work) Mobile: Telephone Information: Referring Provider: Sally Ren REASON FOR VISIT: Date/time of procedure: Pertinent info from Pre-call (if any): Labs ordered: Med's stopped: Question Answer Comment Where will study be performed? [facility] Is the patient on anticoagulant / [...] of left breast in female, estrogen receptor rrlobmsrF68.412, Z17.0 ??? S/P breast reconstruction Z98.82 ??? Surgery follow-up Z09 ??? Abdominal wound dehiscence T81.30XA Pertinent PSH: Past Surgical History: Procedure Laterality Date ??? BREAST BIOPSY Right 11/01 ??? SECTION x 2 ??? HAND SURGERY Right ??? PRG EMG, LARYNX N/A 11/02/2015 FACIAL NERVE MONITORING, SETUP LARYNGEAL performed by Valentina Lucas MD at [facility] MAIN OR ??? PRO BREAST RECONSTRUC W FREE FLAP Bilateral 04/26/2017 @BREAST RECONSTRUCTION W/ FREE FLAP, SUSAN (WRVU 42.58) [facility] ??? PRO BREAST RECONSTRUC W TISS EXPANDR Bilateral 04/26/2017 BREAST RECONSTRUCTION, IMMEDIATE OR DELAYED, W/ TISSUE NETWORK DESIGNER, INCLUDING SUBSEQUENT EXPANSION (WRVU 18.5) performed by [...] R drain removed. Fentanyl 50 mcg IV? [id number] Left breast aspiration/ 30 ml Fentanyl 100 [...] of left breast in female, estrogen receptor schveyneB56.412, Z17.0 ??? S/P breast reconstruction Z98.82 ??? [...] 42.58) performed by Andre Gimenez MD at [facility] [place] ??? PRO BREAST RECONSTRUC W TISS EXPANDR Bilateral 04/26/2017 BREAST RECONSTRUCTION, IMMEDIATE OR DELAYED, W/ TISSUE NETWORK DESIGNER, INCLUDING SUBSEQUENT EXPANSION (WRVU 18.5) performed by Andre Gimenez MD at [facility] MAIN OR ? ? PRO DEBRIDEMENT [...] 9.15) performed by Andre Gimenez MD at [facility] MAIN OR ??? PRO MASTECTOMY, SIMPLE, [...] 01/22/2024 10:30 AM EST Appointment Mammography/[place] [phone] Ladi Mendosa MD [facility] [place] [address] 01/30/2024 11:30 AM EST Office Visit Dermatology at [address] [phone] Nilda Luis MD [facility] [place] [address] 02/14/2024 7:30 AM EST Appointment [place] [phone] Joanna Watts MD [facility] [place] [address] documented as of this encounter Procedures Procedure [...] PRN, Starting on Sun07/03/17 at 1120, Until Sun07/03/17 at 1339, Pain, per unit protocol, - [...] at 1212, Until Sun07/03/17 at 1308, CORY VALENCIA.: natashainet override midazolam (PF) (VERSED) 1 mg/mL multi-dose injection 0.5-1 mg 0.5-1 mg, Intravenous, EVERY 3 MIN PRN, Starting on e 07/03/17 at 1120, Until Sun07/03/17 at 1339, Sleep, - Start dose; 1 [...] mg documented in this encounter Care Teams Client Development Director Relationship Specialty Start Date End Date Trinh Coates MD [address] [place] [address] PCP - General 01/11/10 documented as of this encounter
--- OUTSIDE RECORDS SUMMARY | 2023-09-25 11:49 | XMS_ITS | Encounter Summary ---
Author Organization [facility] Address [facility] [place] [address] Care Team Providers Care Mail Handler Sorter Name Role Phone Trinh oCates MD Primary Care Provider [phone] Encounter Details Date Type Department Care Team (Late st Contact Info) Description 07/19/2017 Orders Only Hematology [place] [address] Sally Ren APRN [facility] [place] [address] Malignant neoplasm of upper-outer quadrant of left [...] 10:30 AM EST Appointment Mammography/[place] [address] Ladi Mendosa MD [facility] [place] [address] 01/30/2024 11:30 AM EST Office Visit Dermatology at [facility] [address] [place] [address] Nilda Luis MD [facility] [place] [address] 02/14/2024 7:30 AM EST Appointment [place] [phone] Joanna Watts MD [facility] [place] [address] documented as of this encounter Visit Diagnoses Diagnosis Malignant neoplasm of upper-outer quadrant of left breast in female, estrogen receptor positive documented in this encounter Care Teams Mail Handler Sorter Relationship Specialty Start Date End Date Trinh Coates MD [facility] [address] [place] [address] PCP - General 01/11/10 documented as of this encounter
--- OUTSIDE RECORDS SUMMARY | 2023-09-25 11:49 | XMS_ITS | Encounter Summary ---
Author Organization [facility] Address [facility] [place] [place] [address] Care Team Providers Care Advanced Developer Name Role Phone Trinh Coates MD Primary Care Provider [phone] Reason for Visit * Reason Comments Follow Up Surgery Encounter Details Date Type Department Care Team (Late st Contact Info) Description 07/10/2017 8:30 AM EDT Office [place] [address] Mali Lakhani MD [facility] [place] [address] S/P breast reconstruction, bilateral Social History Tobacco [...] reconstruction with attempted SALVADOR flaps, eventual tissue cafeteria attendant placement with [place] Yulia 600 cc expanders placed bilaterally and filled with 450 cc of methyleneblue impregnated saline.) Complications: right parietal and visceral pleural tear, arterial flap failure bilaterally Date of surgery: 06.22.17 Procedure(s) left breast wound debridement, excision and closure. Debridement of umbilicus. Deflation of cafeteria attendant volume, This leaves 450 cc in the left tissue cafeteria attendant and 500 cc on the right side [...] past and is concerned that allowed the cafeteria attendant to flip. She has questions about when she can begin chemotherapy. Examination: Patient is alert, conversant, comfortable, ambulating Left tissue cafeteria attendant appears to have maintained its fill volume Suture line is intact No sign of drainage No cellultitis Do not palpate any fluid collection Pt has a new Mediport placed in the right breast No sign of purulence in the umbilical remnant Impression: Wendy Sandoval is a 52 y.o. female who was seen today for follow- up after the above procedure. Please see the operative note for details. We discussed that the cafeteria attendant may have flipped from the front to the back. This could be adjusted in the future, but I recommend the patient further heal. We may not be able to fill from the back of the cafeteria attendant,however, I will discuss this withthe Rep from [...] AM EST Appointment Mammography/[place] [phone] Ladi Mendosa MD [facility] [place] [address] 01/30/2024 11:30 AM EST Office Visit Dermatology at [address] [phone] Nilda Luis MD [facility] [place] [address] 02/14/2024 7:30 AM [place] [phone] Joanna Watts MD [facility] [address] documented as of this encounter Visit Diagnoses Diagnosis S/P breast reconstruction, bilateral Breast replaced by other means documented in this encounter Care Teams Advanced Developer Relationship Specialty Start Date End Date Trinh Coates MD [facility] [address] [place] [address] PCP - General 01/11/10 documented as of this encounter
--- OUTSIDE RECORDS SUMMARY | 2023-09-25 11:49 | XMS_ITS | Encounter Summary ---
Author Organization [facility] [place] [address] Care Team Providers Care Roofer Gypsum Name Role Phone Trinh Coates MD Primary Care Provider [phone] Reason for Visit * Reason Comments Follow-up Encounter Details Date Type Department Care Team (Late st Contact Info) Description 07/05/2017 10:00 AM EDT Office Visit Hematology [place] [address] Gustavo Mota MD [facility] HEMATOLOGY/[place] [address] Sally Ren APRN [facility] [place] [address] Malignant neoplasm of upper-outer quadrant of left [...] documented in this encounter Progress Notes * MarlysrashidSally Haylee, DESIGN MANAGER - 07/05/2017 10:00 AM EDT Subjective: Patient [...] was unremarkable. Core biopsy demonstrated invasive cancer, ER/CO positive, HER- 2/pat negative. Breast MRI demonstrated [...] 01/22/2024 10:30 AM EST Appointment Mammography[place] [address] Ladi Mendosa MD [facility] DR [place] [address] 01/30/2024 11:30 AM EST Office Visit Dermatology at [facility] [address] [place] [address] Nilda Luis MD [facility] [place] [address] 02/14/2024 7:30 AM EST [place] [phone] Joanna Watts MD [facility] [place] [address] documented as of this encounter Visit Diagnoses Diagnosis Malignant neoplasm of upper-outer quadrant of left breast in female, estrogen receptor positive documented in this encounter Care Teams Roofer Gypsum Relationship Specialty Start Date End Date Trinh Coates MD [address] [facility] [address] [place] [address] PCP - General 01/11/10 documented as of this encounter
--- OUTSIDE RECORDS SUMMARY | 2023-09-25 11:49 | XMS_ITS | Encounter Summary ---
[place] [address] Care Team Providers Care Tail End Rider Name Role Phone Trinh Coates MD Primary Care Provider [phone] Reason for Referral * Diagnostic Test (Routine) - Closed Specialty Diagnoses / Procedures Referred By Diamante marin Referred To Contact Radiology Diagnoses S/P breast reconstruction Procedures IR Breast Drain Placement IR All Drainage Procedures Jolene Azevedo APRN [facility] [address] [place] [address] Referral ID Status Reason Start Date Expiration Date V isits Requested Visits Authorized [id number] Closed Specialty Service Requested 06/26/2017 06/26/2018 1 1 Reason for Visit * Reason Comments Follow Up Surgery Encounter Details Date Type Department Care Team (Latest Contact Info) Description 06/26/2017 10:00 AM EDT Office [place] [address] Jolene Azevedo APRN [facility] [place] [address] Surgery follow-up; S/P breast reconstruction [...] reconstruction with attempted SALVADOR flaps, eventual tissue emulsification operator placement with [place] Artoura 600 cc expanders placed bilaterally and filled with 450 cc of methyleneblue impregnated saline.) Complications: right parietal and visceral pleural tear, arterial flap failure bilaterally Date of surgery: 06.22.17 Procedure(s) left breast wound debridement, excision and closure. Debridement of umbilicus. Deflation of emulsification operator volume, This leaves 450 cc in the left tissue emulsification operator and 500 cc on the right side Chemotherapy: To begin July 05 Radiation: TBD HPI: Pt reports some breast soreness after her surgery. She notes tenderness at her inferior pole on the left. She took Tylenol only for one day, then did not feel she needed it. She will be leaving for [place] in two days for her daughter's graduation. She remains on a course of Keflex. She arrives accompanied by her partner. Examination: Patient is alert, conversant, comfortable, ambulating Breast tissue expanders in place. Right NAC well healed. Left breast incision intact, sutures in place Palpable fluid collection surrounding emulsification operator. Mild erythema on inferior pole. Impression: Wendy [...] AM EST Appointment Mammography/DXA at [place] [phone] Ladi Mendosa MD [facility] HEMATOLOGY [place] [address] 01/30/2024 11:30 AM EST Office Visit Dermatology at [address] [phone] Nilda Luis MD [facility] [place] [address] 02/14/2024 7:30 AM [place] [address] Joanna Watts MD [facility] NEUROSURGERY [place] [phone] documented as of this encounter Procedures Procedure [...] debridement, excision and closure, with decrease in emulsification operator on left to 450cc. ?? Postoperative visit today demonstrated a palpable mass around the emulsification operator on the LEFT; US showed small fluid [...] GENER AL ORDERABLES [facility] [place] [address] * US Breast Limited Left (06/26/2017 1:19 [...] means documented in this encounter Care Teams Tail End Rider Relationship Specialty Start Date End Date Trinh Coates MD [address] [place] [address] PCP - General 01/11/10 documented as of this encounter
--- OUTSIDE RECORDS SUMMARY | 2023-09-25 11:49 | XMS_ITS | Encounter Summary ---
Author Organization [facility] Address [facility] Marg[facility]ita [facility] [place] [address] Care Team Providers Care Support Analyst Name Role Phone Trinh Coates MD Primary Care Provider [phone] Encounter Details Date Type Department Care Team (Late st Contact Info) Description 08/08/2017 Orders Only Hematology [place] [address] Sally Ren APRN [facility] [place] [place] [address] Malignant neoplasm of upper-outer quadrant of left [...] 01/22/2024 10:30 AM EST Appointment Mammography/[place] [address] Ladi Mendosa MD [facility] DR [place] [address] 01/30/2024 11:30 AM EST Office Visit Dermatology at [facility] [address] [place] [address] Nilda Luis MD [facility] [place] [address] 02/14/2024 7:30 AM EST [place] [phone] Joanna Watts MD [facility] [place] [address] documented as of this encounter Results * (ABNORMAL) Comprehensive metabolic panel (non-fasting) (08/09/2017 10:20 AM EDT) Glucose 155 65 - 199 mg/dL [facility] Comment:Diabetes: >=200 mg/d L plus symptoms Blood Urea Nitrogen 18 8 - 18 mg/dL [facility] Creatinine 0.95 0.70 - 1.20 mg/dL [facility] Sodium 140 135 - 145 mmol/L [facility] Potassium 3.0(Criti kee) 3.5 - 5.0 mmol/L [facility] Comment: Result rechecked. Called by: ROXANNE, Read back by: Argentina Conner, Date/Time:08/09/17 11:57. Please note: ??Patients with WBC >100,000 may have falsely elevated Potassium levels. ??For accurate Potassium quantification in these patients send serum separator tube (gold top) for subsequent determinations. ??Contact the Clinical Chemistry Laboratory if there are any questions. Chloride 98 98 - 107 mmol/L [facility] Carbon Dioxide 27 22 - 31 mmol/L [facility] Anion Gap 15 5 - 15 mmol/L [facility] Calcium 8.9 8.5 - 10.5 mg/dL [facility] Protein, Total 6.9 6.1 - 8.0 gm/dL [facility] Albumin 4.1 3.2 - 5.2 gm/dL [facility] Aspartate Aminotransferase 16 0 - 30 unit/L [facility] Alanine Aminotransferase 21 0 - 30 unit/L [facility] Alkaline Phosphatase 138(H) 40 - 104 unit/L [facility] Bilirubin, Total <0.2(L) 0.2 - 1.3 mg/dL [facility] Est Glomerular Filtration Rate 68 >=60 mL/min/1. 73 m?? [facility] Comment: The eGFR was calculated using the CKD-EPI equation. As with all creatinine based estimates of kidney function, eGFR values calculated with the CKD-EPI equation are not accurate in patients with acute kidney failure, extremes of body mass or the acutely ill. http://[employer]/Ynsectnkdep http://[employer]/Ynsectnkf eGFR 79 >=60 mL/min/1. 73 m?? [facility] Comment: The eGFR was calculated using the CKD-EPI equation. As with all creatinine based estimates of kidney function, eGFR values calculated with the CKD-EPI equation are not accurate in patients with acute kidney failure, extremes of body mass or the acutely ill. http://[employer]/Ynsectnkdep http://[employer]/DHnkf Blood specimen (specimen) 08/09/2017 10:20 AM EDT 08/09/2017 11:04 AM EDT Narrative Resulting Agency Comment Spec In Lab Sally Ren RESIDENTIAL ENERGY AUDITOR CHEMISTRY ORDERABLE S [facility] [place] [address] documented in this encounter Visit Diagnoses Diagnosis Malignant neoplasm of upper-outer quadrant of left breast in female, estrogen receptor positive documented in this encounter Care Teams Support Analyst Relationship Specialty Start Date End Date Trinh Coates MD [address] [place] [address] PCP - General 01/11/10 documented as of this encounter
--- OUTSIDE RECORDS SUMMARY | 2023-09-25 11:49 | XMS_ITS | Encounter Summary ---
Author Organization [facility] Address [facility] [place] [address] Care Team Providers Care Activated Sludge Attendant Name Role Phone Trinh Coates MD Primary Care Provider [phone] Reason for Visit * Auth/Cert Specialty Diagnoses [...] Expiration Date Visits Re quested Visits Authorized [id number] 1 1 Encounter Details Date Type Department Care Team (Latest Contact Info) Description 06/22/2017 3:33 PM EDT - 06/22/2017 7:26 PM EDT Hospital Encounter [place] [phone] Mali Lakhani MD [facility] [place] [address] Discharge Disposition: Home Social History Tobacco Use [...] office hours: Sunday - Sunday 8am-5pm call [phone]. On weekends or after hours call [phone] and ask the paper bags sewing machine operator to page the plastic surgery resident concrete paving supervisor. CONTACT INFORMATION: During office hours (Sunday through Sunday 8 am to 5 pm): Call [phone]. On weekends or after hours: Call [phone] and ask the paper bags sewing machine operator to speak to the Plastic Surgery Resident on-call. FOLLOW-UP APPOINTMENTS: Your follow-up has been scheduled: Future Appointments Date Time Provider Department Center 06/26/2017 10:00 AM Jolene Azevedo APRN [facility] 4 [facility] 07/03/2017 12:00 PM [facility] IR ROOM 2 IR [facility] 07/05/2017 8:45 AM LABORATORY, TECH [facility] Inf 3K [facility] 07/05/2017 10:00 AM Gustavo Mota MD [facility] Hem Onc [facility] 07/05/2017 11:30 AM LEB INFUSION THERAPY [facility] Inf 3K [facility] 10/31/2017 1:00 PM Corine Barron, [facility] Hem Off [place] [facility] documented in this encounter Medications at [...] Lakhani MD - 06/22/2017 7:26 PM EDT [facility] Operative Note Patient Name: Wendy Sandoval : [id number] MR#: [id number] Case Date: 06/22/2017 Surgeon: Surgeon(s) and Role: * Mali Lakhani MD - Primary * Yo Krueegr MD Preoperative diagnosis: left breast wound Postoperative [...] fluid was removed from the left tissue fuel tank sealer and tester. This leaves 450 cc in the left tissue fuel tank sealer and tester and 500cc on the right side. Next [...] Operative Note Patient Name: Wendy Sandoval : [id number] MR#: [id number] Case Date: 06/22/2017 Surgeon: Surgeon(s) and Role: [...] 01/22/2024 10:30 AM EST Appointment Mammography/[place] [address] Ladi Mendosa MD [facility] [place] [address] 01/30/2024 11:30 AM EST Office Visit Dermatology at [facility] [address] [place] [address] Nilda Luis MD [facility] [place] [address] 02/14/2024 7:30 AM EST Appointment Radiology at [facility] [place] [phone] Joanna Watts MD [facility] [place] [address] documented as of this encounter Procedures Procedure [...] Procedure), Indication for (Active or Suspected): Prophylaxis 4126 (Given - Provid er: Thang Scott CRNA) [...] Routine documented in this encounter Care Teams Activated Sludge Attendant Relationship Specialty Start Date End Date Trinh Coates MD [address] [place] [address] PCP - General 01/11/10 documented as of this encounter
--- OUTSIDE RECORDS SUMMARY | 2023-09-25 11:49 | XMS_ITS | Encounter Summary ---
Author Organization [facility] [place] [address] Care Team Providers Care Die Storage Clerk Name Role Phone Trinh Coates MD Primary Care Provider [phone] Encounter Details Date Type Department Care Team (Late st Contact Info) Description 07/05/2017 11:20 AM EDT Office [place] [address] Jolene Azevedo APRN [facility] [place] [address] Surgery follow-up Social History Tobacco Use Types [...] reconstruction with attempted SALVADOR flaps, eventual tissue tire rebuilder placement with [place] Artoura 600 cc expanders placed bilaterally and filled with 450 cc of methyleneblue impregnated saline.) Complications: right parietal and visceral pleural tear, arterial flap failure bilaterally Date of surgery: 06.22.17 Procedure(s) left breast wound debridement, excision and closure. Debridement of umbilicus. Deflation of tire rebuilder volume, This leaves 450 cc in the left tissue tire rebuilder and 500 cc on the right side [...] 01/22/2024 10:30 AM EST Appointment Mammography/[place] [address] Ladi Mendosa MD [facility] H[place] [address] 01/30/2024 11:30 AM EST Office Visit Dermatology at [place] [address] [place] [address] Nilda Luis MD [facility] [place] [address] 02/14/2024 7:30 AM EST App[place] [address] Joanna Watts MD [facility] [address] documented as of this encounter Visit Diagnoses Diagnosis Surgery follow-up Follow-up examination, following unspecified surgery documented in this encounter Care Teams Die Storage Clerk Relationship Specialty Start Date End Date Trinh Coates MD [facility] [address] [place] [address] PCP - General 01/11/10 documented as of this encounter
--- OUTSIDE RECORDS SUMMARY | 2023-09-25 11:49 | XMS_ITS | Encounter Summary ---
Author Organization [facility] Address [facility] [place] [address] Care Team Providers Care Splash Line Operator Name Role Phone Trinh Coates MD Primary Care Provider [phone] Reason for Visit * Treatment/Therapy Plan Authorization (Routine) - Closed Specialty Diagnoses / Procedures Referred By Diamante marin Referred To Contact Hematology and Oncology Diagnoses Malignant neoplasm of upper-outer quadrant of left breast in female, estrogen receptor positive Procedures TC PALONOSETRON HCL, 25MCG, INJECTION (ALOXI) TC DOXORUBICIN HCL, 10MG, INJECTION (ADRIAMYCIN) TC CYCLOPHOSPHAMIDE, 100MG (CYTOXAN) TC PEGFILGRASTIM, 6MG, INJECTION Gustavo Mota MD [facility] DR HEMATOLOGY/[place] [address] [address] Referral ID Status Reason Start Date Expiration Date Visits Re quested Visits Authorized [id number] Closed 07/02/2017 07/02/2018 12 12 Encounter Details Date Type Department Care Team (Latest Contact Info) Description 08/03/2017 8:51 AM EDT - 08/03/2017 11:59 PM EDT Hospital Encounter Hematology [place] [address] Malignant neoplasm of upper-outer quadrant [...] 01/22/2024 10:30 AM EST Appointment Mammography/[place] [address] Ladi Mendosa MD [facility] HEMATOLOGY [place] [address] 01/30/2024 11:30 AM EST Office Visit Dermatology at [place] [address] [place] [address] Nilda Luis MD [facility] [place] [address] 02/14/2024 7:30 AM EST Appointment [place] [address] Joanna Watts MD [facility] [place] [address] documented as of this encounter Procedures Procedure [...] estrogen receptor positive COMPREHENSIVE METABOLIC PANEL STAT 08/03/2017 9:15 AM EDT Malignant neoplasm of upper-outer quadrant of left breast in female, estrogen receptor positive documented in this encounter Results * (ABNORMAL) Differential, Automated (08/03/2017 9:15 AM EDT) Neutrophil % 15.9 % [facility] Neutrophil Absolute 0.42(Crit ical) 1.70 - 6.10 x10(3)/mc L [facility] Comment: This result has been called to EDWIN HYMAN by Antwon Aguilar on 08 03 2017 at 1005, and has been read back. Lymph % 46.0 % [facility] Lymphocytes Abs 1.2 0.9 - 3.2 x10(3)/mc L [facility] Monocyte % 21.7 % [facility] Monocyte Abs 0.6 0.3 - 0.9 x10(3)/mc L [facility] Eos % 8.4 % [facility] Eosinophils Abs 0.2 0.0 - 0.4 x10(3)/mc L [facility] Basophil % 3.4 % [facility] Baso Absolute 0.1 0.0 - 0.1 x10(3)/mc L [facility] Immature Gran % 4.60 % [facility] Comment: Immature granulocytes(IG's)percentage and absolute count will include metamyelocytes, myelocytes, and promyelocytes. Blood smears from CBCs yielding IG's will be scanned manually for concordance. If this scan disagrees with the automated IG or if promyelocytes are noted, a manual differential will be performed. Immature Gran Absolute 0.12(H) 0.00 - 0.04 x10(3)/mc L [facility] Blood specimen (specimen) 08/03/2017 9:15 AM EDT 08/03/2017 9:38 AM EDT Narrative Resulting Agency Comment Spec In Lab Gustavo Mota MD HEMATOLOGY ORDERABLE S [facility] [place] [address] * (ABNORMAL) Hemogram (08/03/2017 9:15 AM EDT) White Blood Cell 2.6(L) 4.0 - 9.5 x10(3)/mc L [facility] Red Blood Cell 4.33 4.00 - 5.21 x10(6)/mc L [facility] Hemoglobin 12.8 11.7 - 15.5 gm/dL [facility] Hematocrit 38.9 35.7 - 45.8 % [facility] Mean Cell Volume 89.8 82.6 - 94.4 fL [facility] Mean Cell Hemoglobin 29.6 27.1 - 32.0 pg [facility] Mean Cell Hemoglobin Concentration 32.9 31.7 - 35.0 gm/dL [facility] Platelet 294 145 - 357 x10(3)/mc L [facility] RDW Standard Deviation 44.4 37.0 - 46.0 fL [facility] RDW coefficient of variation 13.5 11.5 - 14.1 % [facility] Mean Platelet Volume 8.5 7.6 - 12.9 fL [facility] NRBC% auto 0.0 % [facility] NRBC Absolute 0.000 0.000 - 0.000 x10(3)/mc L [facility] Blood specimen (specimen) 08/03/2017 9:15 AM EDT 08/03/2017 9:38 AM EDT Narrative Resulting Agency Comment Spec In Lab Gustavo Mota MD HEMATOLOGY ORDERABLE S [facility] [place] [address] * (ABNORMAL) Comprehensive metabolic panel (non-fasting) (08/03/2017 9:15 AM EDT) Glucose 158 65 - 199 mg/dL [facility] Comment:Diabetes: >=200 mg/d L plus symptoms Blood Urea Nitrogen 18 8 - 18 mg/dL [facility] Creatinine 0.95 0.70 - 1.20 mg/dL [facility] Sodium 140 135 - 145 mmol/L [facility] Potassium 3.3(L) 3.5 - 5.0 mmol/L [facility] Comment: Please note: ??Patients with WBC >100,000 may have falsely elevated Potassium levels. ??For accurate Potassium quantification in these patients send serum separator tube (gold top) for subsequent determinations. ??Contact the Clinical Chemistry Laboratory if there are any questions. Chloride 99 98 - 107 mmol/L [facility] Carbon Dioxide 25 22 - 31 mmol/L [facility] Anion Gap 16(H) 5 - 15 mmol/L [facility] Calcium 8.9 8.5 - 10.5 mg/dL [facility] Protein, Total 6.8 6.1 - 8.0 gm/dL [facility] Albumin 3.9 3.2 - 5.2 gm/dL [facility] Aspartate Aminotransferase 13 0 - 30 unit/L [facility] Alanine Aminotransferase 18 0 - 30 unit/L [facility] Alkaline Phosphatase 139(H) 40 - 104 unit/L [facility] Bilirubin, Total <0.2(L) 0.2 - 1.3 mg/dL [facility] Est Glomerular Filtration Rate 68 >=60 mL/min/1. 73 m?? [facility] Comment: The eGFR was calculated using the CKD-EPI equation. As with all creatinine based estimates of kidney function, eGFR values calculated with the CKD-EPI equation are not accurate in patients with acute kidney failure, extremes of body mass or the acutely ill. http://[employer]/Endoclearnkdep http://[employer]/Endoclearnkf eGFR 79 >=60 mL/min/1. 73 m?? [facility] Comment: The eGFR was calculated using the CKD-EPI equation. As with all creatinine based estimates of kidney function, eGFR values calculated with the CKD-EPI equation are not accurate in patients with acute kidney failure, extremes of body mass or the acutely ill. http://[employer]/Endoclearnkdep http://[employer]/EndoclearMCnkf Blood specimen (specimen) 08/03/2017 9:15 AM EDT 08/03/2017 9:38 AM EDT Narrative Resulting Agency Comment Spec In Lab Gustavo Mota MD CHEMISTRY ORDERABLES [facility] [place] [address] documented in this encounter Visit Diagnoses Diagnosis [...] Job Aid: Adult Flushing & Catheter Care (5170) job aid for additional information regarding guidelines and administration., Routine Given 08/03/2017 9:18 AM EDT 20 mLs documented in this encounter Care Teams Splash Line Operator Relationship Specialty Start Date End Date Trinh Coates MD [facility] [address] [facility] [address] [place] [address] PCP - General 01/11/10 documented as of this encounter
--- OUTSIDE RECORDS SUMMARY | 2023-09-25 11:49 | XMS_ITS | Encounter Summary ---
Author Organization [facility] [place] [address] Care Team Providers Care Road Traffic Controller Name Role Phone Trinh Coates MD Primary Care Provider [phone] Encounter Details Date Type Department Care Team (Late st Contact Info) Description 07/05/2017 Telephone [place] [address] Jolene Azevedo APRN [facility] [place] [address] Social History Tobacco Use Types Packs/Day Years [...] AM EST Appointment Mammography[place] [address] Ladi Mendosa MD [facility] HEMATOLOGY [place] [address] 01/30/2024 11:30 AM EST Office Visit Dermatology at [facility] [address] [place] [address] Nilda Luis MD [facility] [place] [address] 02/14/2024 7:30 AM EST Appointment Radiology at [place] [phone] Joanna Watts MD [facility] [place] [address] documented as of this encounter Visit Diagnoses Not on filedocumented in this encounter Care Teams Road Traffic Controller Relationship Specialty Start Date End Date Trinh Coates MD [facility] [address] [place] [address] PCP - General 01/11/10 documented as of this encounter
--- OUTSIDE RECORDS SUMMARY | 2023-09-25 11:49 | XMS_ITS | Encounter Summary ---
Author Organization [facility] [place] [address] Care Team Providers Care Banking Assistant Name Role Phone Trinh Coates MD Primary Care Provider [phone] Encounter Details Date Type Department Care Team (Late st Contact Info) Description 07/02/2017 [place] [phone] Kaveh Whiteside MD [facility] [place] [address] Social History Tobacco Use Types Packs/Day Years [...] EDT Ms Sandoval called last night from [place]. She had noted some swelling to the [...] 01/22/2024 10:30 AM EST Appointment Mammography/[place] [address] Ladi Mendosa MD [facility] [place] [address] 01/30/2024 11:30 AM EST Office Visit Dermatology at [facility] [address] [place] [address] Nilda Luis MD [facility] [place] [address] 02/14/2024 7:30 AM EST Appointment [place] [address] Joanna Watts MD [facility] [place] [address] documented as of this encounter Visit Diagnoses Not on filedocumented in this encounter Care Teams Banking Assistant Relationship Specialty Start Date End Date Trinh Coates MD [address] [place] [address] PCP - General 01/11/10 documented as of this encounter
--- OUTSIDE RECORDS SUMMARY | 2023-09-25 11:49 | XMS_ITS | Encounter Summary ---
[place] [address] Care Team Providers Care Executive Account Manager Name Role Phone Trinh Coates MD Primary Care Provider [phone] Reason for Referral * Diagnostic Test (Routine) - Canceled Specialty Diagnoses / Procedures Referred By Diamante marin Referred To Contact Radiology Diagnoses Surgery follow-up Procedures IR Breast Drain Placement Jolene Azevedo APRN [facility] [place] [address] [place] [address] Referral ID Status Reason Start Date Expiration Date Visits Requested Visits Authorized [id number] Canceled Specialty Service Requested 07/03/2017 07/03/2018 1 1 Reason for Visit * Reason Comments Follow Up Surgery incision check, left breast, ? fluid Encounter Details Date Type Department Care Team (Latest Contact Info) Description 07/03/2017 8:00 AM EDT Clinical [place] [address] Surgery follow-up Social History Tobacco [...] reconstruction with attempted SALVADOR flaps, eventual tissue application development project manager placement with Yasmine Bender??600 cc expanders placed [...] approximated, bacitracin applied after wound care wash. ASSOCIATE PROJECT MANAGER Jolene Azevedo into evaluate the left [...] 01/22/2024 10:30 AM EST Appointment Mammography[place] [address] Ladi Mendosa MD [facility] [place] [address] 01/30/2024 11:30 AM EST Office Visit Dermatology at [address] [phone] Nilda Luis MD [facility] [place] [address] 02/14/2024 7:30 AM EST [place] [address] Joanna Watts MD [facility] [place] [address] documented as of this encounter Results * IR Breast Drain Placement (09/06/2017 1:55 PM EDT) Anatomical Region Laterality Modality X-Ray Angiograph y Narrative 09/06/2017 4:00 PM EDT IR PROCEDURE NOTE Procedure: Left breast drain placement. Indication for Procedure: Per Norberto Muñoz APRN Wendy Sandoval is a 52 y.o. female [...] U/S showed fluid surrounding the Left breast application development project manager as seen on the ??breast US from [...] and looped in the breast around the application development project manager under fluoroscopy, position within the collection confirmed [...] Impression: 1. ??Left breast drain placement, 8 Latvian. 2. ??320 cc of mildly cloudy pale yellow fluid aspirated, sample sent for labs. Resident/Fellow: ??Dr. Mcgovern. Attending: IDr. Crowley performed this procedure. ?? Jolene Azevedo [...] surgery documented in this encounter Care Teams Executive Account Manager Relationship Specialty Start Date End Date Trinh Coates MD [facility] [address] [place] [address] PCP - General 01/11/10 documented as of this encounter
--- OUTSIDE RECORDS SUMMARY | 2023-09-25 11:49 | XMS_ITS | Encounter Summary ---
Author Organization [facility] Address [facility] [place] [address] Care Team Providers Care Storage Management Architect Name Role Phone Trinh Coates MD [...] Expiration Date Visits Re quested Visits Authorized [id number] 1 1 Encounter Details Date Type Department Care Team (Late st Contact Info) Description 06/22/2017 4:44 PM EDT - 06/22/2017 6:12 PM EDT Surgery [place] [phone] Mali Lakhani MD [facility] [place] [address] REVISION OF RECONSTRUCTED BREAST (WRVU 11.17) Social [...] office hours: Sunday - Sunday 8am-5pm call [phone]. On weekends or after hours call [phone] and ask the tomahawk weapon system operator to page the plastic surgery resident bonderizer operator. CONTACT INFORMATION: During office hours (Sunday through Sunday 8 am to 5 pm): Call [phone]. On weekends or after hours: Call [phone] and ask the tomahawk weapon system operator to speak to the Plastic Surgery Resident on-call. FOLLOW-UP APPOINTMENTS: Your follow-up has been scheduled: Future Appointments Date Time Provider Department Center 06/26/2017 10:00 AM Jolene Azevedo APRN [facility] 4 [facility] 07/03/2017 12:00 PM [facility] IR ROOM 2 IR [facility] Rad Clin 07/05/2017 8:45 AM LABORATORY, TECH Le[facility] Inf 3K [facility] 07/05/2017 10:00 AM Gustavo Mota MD Leb Hem Onc [facility] 07/05/2017 11:30 AM LEB INFUSION THERAPY [facility] 10/31/2017 1:00 PM Corine Barron, [facility] Hem Off [place] [facility] documented in [...] of this encounter Progress Notes * Carrie Ahumada, RN - 06/22/2017 7:25 PM EDT Patient [...] herhealth, medical/surgical history, or medications. From Dr. Lahkani's clinic note: S/p bilateral SALVADOR flaps with [...] Miscellaneous Notes * Op Note - Mali Lakhnai MD - 06/22/2017 7:26 PM EDT [facility] Operative Note Patient Name: Wendy Sandoval : [id number] MR#: [id number] Case Date: 06/22/2017 Surgeon: Surgeon(s) and Role: [...] fluid was removed from the left tissue spearer. This leaves 450 cc in the left tissue spearer and 500cc on the right side. Next [...] Operative Note Patient Name: Wendy Sandoval : [id number] MR#: [id number] Case Date: 06/22/2017 Surgeon: Surgeon(s) and Role: [...] 01/22/2024 10:30 AM EST Appointment Mammography/[place] [address] Ladi Mendosa MD [facility] HEMATOLOGY [place] [address] 01/30/2024 11:30 AM EST [facility] [address] [place] [address] Nilda Luis MD [facility] [place] [address] 02/14/2024 7:30 AM EST [place] [phone] Joanna Watts MD [facility] [place] [address] documented as of this encounter Procedures Procedure [...] Routine documented in this encounter Care Teams Storage Management Architect Relationship Specialty Start Date End Date Trinh Coates MD [address] [place] [address] PCP - General 01/11/10 documented as of this encounter
--- OUTSIDE RECORDS SUMMARY | 2023-09-25 11:49 | XMS_ITS | Encounter Summary ---
Author Organization [facility] Address [facility] [place] [address] Care Team Providers Care Passenger Car Cleaning Supervisor Name Role Phone Trinh Coates MD Primary Care Provider [phone] Reason for Visit * Treatment/Therapy Plan Authorization (Routine) - Closed Specialty Diagnoses / Procedures Referred By Diamante marin Referred To Contact Hematology and Oncology Diagnoses Malignant neoplasm of upper-outer quadrant of left breast in female, estrogen receptor positive Procedures TC PALONOSETRON HCL, 25MCG, INJECTION (ALOXI) TC DOXORUBICIN HCL, 10MG, INJECTION (ADRIAMYCIN) TC CYCLOPHOSPHAMIDE, 100MG (CYTOXAN) TC PEGFILGRASTIM, 6MG, INJECTION Gustavo Mota MD [facility] DR HEMATOLOGY/[place] [address] [address] Referral ID Status Reason Start Date Expiration Date Visits Re quested Visits Authorized [id number] Closed 07/02/2017 07/02/2018 12 12 Encounter Details Date Type Department Care Team (Latest Contact Info) Description 07/20/2017 11:19 AM EDT Hospital Encounter Hematology [place] [address] Malignant neoplasm of upper-outer quadrant [...] 07/20/2017 Attending Physician: No att. providers found Patient completed cytoxan without issue. ONPRO applied and instructions given. Patient states understanding. Pt ambulated out at 1816, driving home. documented in this encounter Plan of Treatment Upcoming Encounters Date Type Department Care Team (Late st Contact Info) Description 01/22/2024 10:30 AM EST Appointment Mammography/DXA at [place] [phone] [facility] HEMATOLOGY [place] [address] 01/30/2024 11:30 AM EST Office Visit Dermatology at [address] [phone] Nilda Luis MD [facility] [place] [address] 02/14/2024 7:30 AM [place] [address] [facility] [place] [address] documented as of this encounter [...] (IV) Procedure: Accessing Implanted Vascular Access Devices (534) procedure and/or Intravenous (IV) Job Aid: Adult Flushing & Catheter Care (5658) job aid for additional information regarding guidelines [...] Job Aid: Adult Flushing & Catheter Care (3221) job aid for additional information regarding guidelines and administration., Routine Given 07/20/2017 6:13 PM EDT 20 mLs documented in this encounter Care Teams Passenger Car Cleaning Supervisor Relationship Specialty Start Date End Date Trinh Coates MD [facility] [address] [place] [address] PCP - General 01/11/10 documented as of this encounter
--- OUTSIDE RECORDS SUMMARY | 2023-09-25 11:49 | XMS_ITS | Encounter Summary ---
Author Organization [facility] Address [facility] [place] [address] Care Team Providers Care Salesforce Specialist Name Role Phone Trinh Coates MD Primary Care Provider Reason for Visit * Reason Comments Follow Up Surgery Encounter Details Date Type Department Care Team (Latest Contact Info) Description 06/06/2017 11:30 AM EDT Office [place] [address] Yo Krueger MD [facility] [place] [address] Postoperative wound infection, initial encounter (Primary Dx) [...] SALVADOR flaps debrided and TE expanderbreast reconstruction ([place]??600 cc expanders placed bilaterally and filled??with [...] SALVADOR flaps, SALVADOR flaps debrided and TE chalk molding machine operator breast reconstruction ([place]??600 cc expanders placed bilaterally and filled??with [...] an indication for urgent removal of the chalk molding machine operator today, though it is a possibility that [...] 01/22/2024 10:30 AM EST Appointment Mammography/[place] [phone] Ladi Mendosa MD [facility] HEMATOLOGY [place] [address] 01/30/2024 11:30 AM EST Office Visit Dermatology at [facility] [address] [place] [address] Nilda Luis MD [facility] [place] [address] 02/14/2024 7:30 AM EST [place] [phone] Joanna Watts MD [facility] [place] [address] documented as of this encounter Procedures Procedure Name Priority Date/Time Associated Diagnosis Comments HEMOGRAM Routine 06/06/2017 1:22 PM EDT Postoperative wound infection, initial encounter DIFFERENTIAL, AUTOMATED Routine 06/06/2017 1:22 PM EDT Postoperative wound infection, initial encounter CBC (WITH DIFF) Routine 06/06/2017 1:22 PM EDT Postoperative wound infection, initial encounter documented in this encounter Results * (ABNORMAL) Differential, Automated (06/06/2017 1:22 PM EDT) Neutrophil % 59.7 % [facility] Neutrophil Absolute 7.16(H) 1.70 - 6.10 x10(3)/mc L [facility] Lymph % 21.1 % [facility] Lymphocytes Abs 2.5 0.9 - 3.2 x10(3)/mc L [facility] Monocyte % 9.8 % [facility] Monocyte Abs 1.2(H) 0.3 - 0.9 x10(3)/mc L [facility] Eos % 7.3 % [facility] Eosinophils Abs 0.9(H) 0.0 - 0.4 x10(3)/mc L [facility] Basophil % 1.4 % [facility] Baso Absolute 0.2(H) 0.0 - 0.1 x10(3)/mc L [facility] Immature Gran % 0.70 % [facility] Comment: Immature granulocytes(IG's)percentage and absolute count will include metamyelocytes, myelocytes, and promyelocytes. Blood smears from CBCs yielding IG's will be scanned manually for concordance. If this scan disagrees with the automated IG or if promyelocytes are noted, a manual differential will be performed. Immature Gran Absolute 0.08(H) 0.00 - 0.04 x10(3)/mc L [facility] Blood specimen (specimen) 06/06/2017 1:22 PM EDT 06/06/2017 1:28 PM EDT Narrative Resulting Agency Comment Spec In Lab Yo Krueger MD HEMATOLOGY ORDERABLE S [facility] [place] [address] * (ABNORMAL) Hemogram (06/06/2017 1:22 PM EDT) White Blood Cell 12.0(H) 4.0 - 9.5 x10(3)/mc L [facility] Red Blood Cell 4.00 4.00 - 5.21 x10(6)/mc L [facility] Hemoglobin 12.2 11.7 - 15.5 gm/dL [facility] Hematocrit 36.9 35.7 - 45.8 % [facility] Mean Cell Volume 92.3 82.6 - 94.4 fL [facility] Mean Cell Hemoglobin 30.5 27.1 - 32.0 pg [facility] Mean Cell Hemoglobin Concentration 33.1 31.7 - 35.0 gm/dL [facility] Platelet 416(H) 145 - 357 x10(3)/mc L [facility] RDW Standard Deviation 43.5 37.0 - 46.0 fL [facility] RDW coefficient of variation 12.9 11.5 - 14.1 % [facility] Mean Platelet Volume 8.7 7.6 - 12.9 fL [facility] NRBC% auto 0.0 % [facility] NRBC Absolute 0.000 0.000 - 0.000 x10(3)/mc L [facility] Blood specimen (specimen) 06/06/2017 1:22 PM EDT 06/06/2017 1:28 PM EDT Narrative Resulting Agency Comment Spec In Lab Yo Krueger MD HEMATOLOGY ORDERABLE S [facility] [place] [address] documented in this encounter Visit Diagnoses Diagnosis Postoperative wound infection, initial encounter- Primary documented in this encounter Care Teams Salesforce Specialist Relationship Specialty Start Date End Date Trinh Coates MD [address] [place] [address] PCP - General 01/11/10 documented as of this encounter
--- OUTSIDE RECORDS SUMMARY | 2023-09-25 11:49 | XMS_ITS | Encounter Summary ---
Author Organization [facility] Address [facility] [place] [address] Care Team Providers Care Transmission Systems Operator Name Role Phone Trinh Coates MD Primary Care Provider [phone] Reason for Visit * Reason Comments Follow-up Encounter Details Date Type Department Care Team (Late st Contact Info) Description 08/03/2017 10:00 AM EDT Office Visit Hematology [place] [address] Sally Ren APRN [facility] [place] [address] Malignant neoplasm of upper-outer quadrant of left [...] this encounter Progress Notes * Sally Ren, TYPESETTING MACHINE OPERATOR/TENDER - 08/03/2017 10:00 AM EDT Subjective: Patient [...] was unremarkable. Core biopsy demonstrated invasive cancer, ER/AL positive, HER- 2/pat negative. Breast MRI demonstrated [...] Wendy Sandoval is a 52 y.o. with ER/AL positive, HER-2/pat negative left breast cancer. She [...] 01/22/2024 10:30 AM EST Appointment Mammography/[place] [address] Ladi Mendosa MD [facility] [place] [address] 01/30/2024 11:30 AM EST Office Visit Dermatology at [place] [address] [place] [phone] Nilda Luis MD [facility] [place] [address] 02/14/2024 7:30 AM EST [place] [address] Joanna Watts MD [facility] [place] [address] documented as of this encounter Visit Diagnoses Diagnosis Malignant neoplasm of upper-outer quadrant of left breast in female, estrogen receptor positive documented in this encounter Care Teams Transmission Systems Operator Relationship Specialty Start Date End Date Trinh Coates MD [facility] [address] [place] [address] PCP - General 01/11/10 documented as of this encounter
--- OUTSIDE RECORDS SUMMARY | 2023-09-25 11:50 | XMS_ITS | Encounter Summary ---
Author Organization [facility], 1930–[address] [place] [address] Care Team Providers Care Psychology Tech Name Role Phone Trinh Coates MD Primary Care Provider [phone] Reason for Referral * Diagnostic Test (Emergency) - Closed Specialty Diagnoses / Procedures Referred By Diamante t Referred To Contact Radiology Diagnoses Surgery follow-up Procedures CTA Chest for Pulmonary Embolus w Contrast Jolene Azevedo APRN [facility] [place] [address] [facility] [place] [address] Referral ID Status Reason Start Date Expiration Date V isits Requested Visits Authorized [id number] Closed Specialty Service Requested 05/10/2017 06/24/2017 1 1 Reason for Visit * Reason Comments Follow Up Surgery s/p breast recon, po ssible drain removal * Auth/Cert Specialty Diagnoses / Procedures Referred By Contac t Referred To Contact Diagnoses Abdominal wound dehiscence, initial encounter INFECTION Procedures ELA IPI Referral ID Status Reason Start Date Expiration Date Visits Re quested Visits Authorized [id number] 1 1 Encounter Details Date Type Department Care Team (Late st Contact Info) Description 05/10/2017 11:40 AM EDT Office [place] [address] Jolene Azevedo APRN [facility] [address] [place] [address] Surgery follow-up Social History Tobacco Use Types [...] this encounter Progress Notes * Jolene Azevedo, DIRECTOR OF OFFICIATING - 05/10/2017 11:40 AM EDT Plastic Surgery [...] 01/22/2024 10:30 AM EST Appointment Mammography/[place] [address] Ladi Mendosa MD [facility] [place] [address] 01/30/2024 11:30 AM EST Office Visit Dermatology at [facility] [address] [place] [address] Nilda Luis MD [facility] [address] 02/14/2024 7:30 AM EST Appointment [place] [address] Joanna Watts MD [facility] [place] [address] documented as of this encounter Procedures Procedure Name Priority Date/Time Associated Diagnosis Comments SCAN, PERIPHERAL BLOOD Routine 05/10/2017 2:13 PM EDT HEMOGRAM Routine 05/10/2017 2:13 PM EDT Surgery follow-up DIFFERENTIAL, AUTOMATED Routine 05/10/2017 2:13 PM EDT Surgery follow-up CBC (WITH DIFF) Routine 05/10/2017 2:13 PM EDT Surgery follow-up BASIC METABOLIC PANEL Routine 05/10/2017 2:13 PM EDT Surgery follow-up documented in this encounter Results * Scan, Peripheral Blood (05/10/2017 2:13 PM EDT) Plat estimate Increased [facility] RBC Morphology Normal [facility] Blood specimen (specimen) 05/10/2017 2:13 PM EDT 05/10/2017 2:18 PM EDT Narrative Resulting Agency Comment Spec In Lab Jolene E Roberto Carlos DIRECTOR OF OFFICIATING HEMATOLOGY ORDERABLE S [facility] [place] [address] * (ABNORMAL) Differential, Automated (05/10/2017 2:13 PM EDT) Neutrophil % 72.4 % [facility] Neutrophil Absolute 14.37(H) 1.70 - 6.10 x10(3)/ L [facility] Lymph % 13.4 % [facility] Lymphocytes Abs 2.7 0.9 - 3.2 x10(3)/[facility] Monocyte % 7.8 % [facility] Monocyte Abs 1.5(H) 0.3 - 0.9 x10(3)/[facility] Eos % 3.6 % [facility] Eosinophils Abs 0.7(H) 0.0 - 0.4 x10(3)/[facility] Basophil % 1.4 % [facility] Baso Absolute 0.3(H) 0.0 - 0.1 x10(3)/[facility] Immature Gran % 1.40 % [facility] Comment: Immature granulocytes(IG's)percentage and absolute count will include metamyelocytes, myelocytes, and promyelocytes. Blood smears from CBCs yielding IG's will be scanned manually for concordance. If this scan disagrees with the automated IG or if promyelocytes are noted, a manual differential will be performed. Immature Gran Absolute 0.27(H) 0.00 - 0.04 x10(3)/ L [facility] Blood specimen (specimen) 05/10/2017 2:13 PM EDT 05/10/2017 2:18 PM EDT Narrative Resulting Agency Comment Spec In Lab Jolene Kraig Roberto Carlos BROUSSARD HEMATOLOGY ORDERABLE S [facility] [place] [address] * (ABNORMAL) Hemogram (05/10/2017 2:13 PM EDT) [facility] White Blood Cell 19.8(H) 4.0 - 9.5 x10(3)/ L [facility] Red Blood Cell 3.93(L) 4.00 - 5.21 x10(6)/ L [facility] Hemoglobin 12.5 11.7 - 15.5 gm/dL [facility] Hematocrit 36.8 35.7 - 45.8 % [facility] Mean Cell Volume 93.6 82.6 - 94.4 fL [facility] Mean Cell Hemoglobin 31.8 27.1 - 32.0 pg [facility] Mean Cell Hemoglobin Concentration 34.0 31.7 - 35.0 gm/dL [facility] Platelet 571(H) 145 - 357 x10(3)/ L [facility] RDW Standard Deviation 46.3(H) 37.0 - 46.0 [facility] RDW coefficient of variation 13.5 11.5 - 14.1 % [facility] Mean Platelet Volume 8.3 7.6 - 12.9 fL [facility] NRBC% auto 0.0 % [facility] NRBC Absolute 0.000 0.000 - 0.000 x10(3)/[facility] Blood specimen (specimen) 05/10/2017 2:13 PM EDT 05/10/2017 2:18 PM EDT Narrative Resulting Agency Comment Spec In Lab Jolene Azevedo APRN HEMATOLOGY ORDERABLE S [facility] [place] [address] * (ABNORMAL) Basic Metabolic Panel (non-fasting) (05/10/2017 2:13 PM EDT) [facility] Glucose 105 65 - 199 mg/dL [facility] Comment:Diabetes: >=200 mg/d L plus symptoms Blood Urea Nitrogen 20(H) 8 - 18 mg/dL [facility] Creatinine 0.87 0.70 - 1.20 mg/dL [facility] Sodium 141 135 - 145 mmol/L [facility] Potassium 3.4(L) 3.5 - 5.0 mmol/L [facility] Comment: Please note: ??Patients with WBC >100,000 may have falsely elevated Potassium levels. ??For accurate Potassium quantification in these patients send serum separator tube (gold top) for subsequent determinations. ??Contact the Clinical Chemistry Laboratory if there are any questions. Chloride 100 98 - 107 mmol/L [facility] Carbon Dioxide 25 22 - 31 mmol/L [facility] Anion Gap 16(H) 5 - 15 mmol/L [facility] Calcium 8.6 8.5 - 10.5 mg/dL [facility] Est Glomerular Filtration Rate >60 >=60 [facility] Comment: The reported eGFR should be multiplied by 1.2 for patients. The MDRD is not an appropriate measure of renal function for patients with body mass extremes or in patients with acute kidney failure. http://ArticleAlley/DHnkdep http://ArticleAlley/DHMCnkf Blood specimen (specimen) 05/10/2017 2:13 PM EDT 05/10/2017 2:18 PM EDT Narrative Resulting Agency Comment Spec In Lab Jolene Azevedo APRN CHEMISTRY ORDERABLES [facility] [place] [address] * CTA Chest for Pulmonary Embolus w [...] with clinicaland laboratory signs of infection/inflammation. Jolene E Roberto Carlos BROUSSARD IMG CT ORDERABLES documented in this encounter Visit Diagnoses Diagnosis Surgery follow-up Follow-up examination, following unspecified surgery Surgery follow-up Follow-up examination, following unspecified surgery documented in this encounter Care Teams Psychology Tech Relationship Specialty Start Date End Date Trinh Coates MD [address] [place] [address] PCP - General 01/11/10 documented as of this encounter
--- OUTSIDE RECORDS SUMMARY | 2023-09-25 11:50 | XMS_ITS | Encounter Summary ---
Author Organization [facility] [place] [address] Care Team Providers Care Fire Chief'S Aide Name Role Phone Trinh Coates MD Primary Care Provider [phone] Reason for Visit * Reason Comments Follow Up Surgery s/p salvador with tissue health program director, wound vac Encounter Details Date Type Department Care Team (Late st Contact Info) Description 05/30/2017 10:00 AM EDT Office [place] [address] Jolene Azevedo APRN [facility] [place] [address] Surgery follow-up Social History Tobacco Use Types [...] SALVADOR flaps debrided and TE expanderbreast reconstruction ([place] 600 cc expanders placed bilaterally and [...] 01/22/2024 10:30 AM EST Appointment Mammography/[place] [address] Ladi Mendosa MD [facility] [place] [address] 01/30/2024 11:30 AM EST Office Visit Dermatology at [facility] [address] [place] [phone] Nilda Luis MD [facility] [place] [address] 02/14/2024 7:30 AM EST [place] [address] Joanna Watts MD [facility] [address] documented as of this encounter Visit Diagnoses Diagnosis Surgery follow-up Follow-up examination, following unspecified surgery documented in this encounter Care Teams Fire Chief'S Aide Relationship Specialty Start Date End Date Trinh Coates MD [facility] [address] [place] [address] PCP - General 01/11/10 documented as of this encounter
--- OUTSIDE RECORDS SUMMARY | 2023-09-25 11:50 | XMS_ITS | Encounter Summary ---
Author Organization [facility] [place] [address] Care Team Providers Care Junior Sales Assistant Name Role Phone Trinh Coates MD Primary Care Provider [phone] Reason for Referral * Diagnostic Test (Routine) - Closed Specialty Diagnoses / Procedures Referred By Shadyac t Referred To Contact Cardiology Diagnoses Malignant neoplasm of upper-outer quadrant of left breast in female, estrogen receptor positive Hyperparathyroidism Essential hypertension Depression, unspecified depression type Obstructive sleep apnea (adult) (pediatric) Procedures Echocardiogram Transthoracic(Leb) Gustavo Mota MD [facility] DR HEMATOLOGY/[place] [address] [facility] [place] [address] Referral ID Status Reason Start Date Expiration Date V isits Requested Visits Authorized [id number] Closed Specialty Service Requested 05/22/2017 05/22/2018 1 1 Reason for Visit * Diagnostic Test (Routine) - Closed Specialty Diagnoses / Procedures Referred By Contac t Referred To Contact Cardiology Diagnoses Malignant neoplasm of upper-outer quadrant of left breast in female, estrogen receptor positive Hyperparathyroidism Essential hypertension Depression, unspecified depression type Obstructive sleep apnea (adult) (pediatric) Procedures Echocardiogram Transthoracic(Leb) Gustavo Mota MD [facility] DR HEMATOLOGY/[place] [address] [facility] [place] [address] Referral ID Status Reason Start Date Expiration Date V isits Requested Visits Authorized [id number] Closed Specialty Service Requested 05/22/2017 05/22/2018 1 1 Encounter Details Date Type Department Care Team (Latest Contact Info) Description 06/01/2017 1:31 PM EDT - 06/01/2017 11:59 PM EDT Hospital Encounter Non-Invasive [place] [address] Gustavo Mota MD [facility] HEMATOLOGY/ONCOL [place]OU[place] DEPT. [place], [place] [phone] Malignant neoplasm of upper-outer quadrant of left [...] tablet by mouth daily. 0 01/25/2017 06/20/2017 atorvastatin (LIPITOR) 20 mg Tablet Take 1 [...] 01/22/2024 10:30 AM EST Appointment Mammography/[place] [phone] Ladi Mendosa MD [facility] DR HEMATOLOGY [place] [address] 01/30/2024 11:30 AM EST Office Visit Dermatology at [facility] [address] [place] [address] Nilda Luis MD [facility] [place] [address] 02/14/2024 7:30 AM EST Appointment Radiology at [facility] [place] [phone] Joanna Watts MD [facility] [place] [address] documented as of this encounter Procedures Procedure [...] PM EDT Procedure: ?Transthoracic Echocardiogram Patient: ?CORINA WEDNY M ? (Age): 1965(51y) Med Rec#: ? [id number] ?Sex: ?F ? Site Loc: ? [facility] [place]Ht / Wt: ??152(cm)/79.2(kg Pt. Loc: ?Echo Lab ?BSA: ?1.76 Study Date: ?? 06/01/2017 ?Pt. Type: Outpatient Tape: ? Referring: KENZIE Reading: Javier Donohue ([id number]) Tug Hand: Tammy Gonzalez Diagnosis: *ICD-10-PCS Malignant neoplasm of [...] ? Mid-Inferior ?Normal ? Mid-Inferoseptal ?Normal ? [place]-Septal ? Normal ? [place]-Anterior ? Normal ? [place]-Lateral ?Normal ? [place]-Inferior ? Normal ? [place]-Tip ?Normal ? This report has been electronically signed by: Javier Donohue M.D. ? 06/01/2017 15:02:16 Images reviewed and interpretation verified [facility] Cardiac Ultrasound Laboratory Procedure Note Javier Donohue MD - 06/01/2017 Procedure: Transthoracic Echocardiogram Patient: CORINA Lanier (Age): 1965(51y) Med Rec#: [id number] Sex: F Site Loc: [facility] Ht / Wt: 152(cm)/79.2(kg Pt. Loc: Echo Lab BSA: 1.76 Study Date: 06/01/2017 Pt. Type: Outpatient Tape: Referring: KENZIE Reading: Javier Donohue ([id number]) Tug Hand: Tammy Gonzalez Diagnosis: *ICD-10-PCS Malignant neoplasm of [...] Normal Mid-Posterolateral Normal Mid-Inferior Normal Mid-Inferoseptal Normal [place]-Septal Normal [place]-Anterior Normal Leon-Lateral Normal Leon-Inferior Normal [place]-Tip Normal This report has been electronically signed by: Javier Donohue M.D. 06/01/2017 15:02:16 Images reviewed and interpretation verified [facility] Cardiac Ultrasound Laboratory Gustavo Mota MD ECHO ORDER[facility]LES documented in this encounter Visit Diagnoses Diagnosis Malignant neoplasm of upper-outer quadrant of left breast in female, estrogen receptor positive Hyperparathyroidism Hyperparathyroidism, unspecified Essential hypertension Unspecified essential hypertension Depression, unspecified depression type Obstructive sleep apnea (adult) (pediatric) documented in this encounter Care Teams Junior Sales Assistant Relationship Specialty Start Date End Date Trinh Coates MD [facility] [address] [facility] [address] [place] [address] PCP - General 01/11/10 documented as of this encounter
--- OUTSIDE RECORDS SUMMARY | 2023-09-25 11:50 | XMS_ITS | Encounter Summary ---
Author Organization [facility] [place] [address] Care Team Providers Care Gum Sprayer Name Role Phone Trinh Coates MD Primary Care Provider [phone] Reason for Referral * Diagnostic Test (Routine) - Closed Specialty Diagnoses / Procedures Referred By Diamante marin Referred To Contact Cardiology Diagnoses Malignant neoplasm of upper-outer quadrant of left breast in female, estrogen receptor positive Hyperparathyroidism Essential hypertension Depression, unspecified depression type Obstructive sleep apnea (adult) (pediatric) Procedures Echocardiogram Transthoracic(Leb) Bobby Harrison MD [facility] DR HEMATOLOGY/[place] [address] [facility] [place] [address] Referral ID Status Reason Start Date Expiration Date V isits Requested Visits Authorized [id number] Closed Specialty Service Requested 05/22/2017 05/22/2018 1 1 Reason for Visit * Reason Comments Follow-up Encounter Details Date Type Department Care Team (Late st Contact Info) Description 05/21/2017 12:30 PM EDT Office Visit Hematology [place] [address] [facility] DR HEMATOLOGY/[place] [address] Rasheeda Trent RN Malignant neoplasm of upper-outer [...] was unremarkable. Core biopsy demonstrated invasive cancer, ER/WA positive, HER- 2/pat negative. Breast MRI demonstrated [...] history potentially a variant of unknown significance. 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 OR ??? PRO BREAST RECONSTRUC W FREE FLAP Bilateral 04/26/2017 @BREAST RECONSTRUCTION W/ FREE FLAP, SUSAN (WRVU 42.58) performed by Andre Gimenez MD at [facility] ??? PRO BREAST RECONSTRUC W TISS EXPANDR Bilateral 04/26/2017 BREAST RECONSTRUCTION, IMMEDIATE OR DELAYED, W/ TISSUE SUPERINTENDENT PIPELINES, INCLUDING SUBSEQUENT EXPANSION (WRVU 18.5) performed by Andre Gimenez MD at [facility] OR ??? PRO EXPLORE PARATHYROID GLANDS N/A 11/02/2015 PARATHYROIDECTOMY OR EXPLORATION OF PARATHYROID(S) performed by Valentina Lucas MD at [facility] OR ? ? PRO FULL THICK GRFT TRUNK <20 SQCM Bilateral 04/26/2017 FTSG, FREE, DIR CLOSE DONOR SITE, TRUNK, 20 SQ CM OR LESS (WRVU 9.15) performed by Andre Gimenez MD at [facility] OR ??? PRO MASTECTOMY, SIMPLE, COMPLETE Bilateral 04/26/2017 MASTECTOMY, SIMPLE, COMPLETE-SUSAN (WRVU 15.85) performed by Jolie Menendez MD at [facility] OR ??? PRO PARTIAL REMOVAL OF RIB Bilateral 04/26/2017 EXCISION OF RIB, PARTIAL (WRVU 7.26) performed by Andre Gimenez MD at [facility] OR ??? PRO REMOVE ARMPITS LYMPH NODES COMPLT Left 04/26/2017 LYMPHADENECTOMY, AXILLARY, COMPLETE (WRVU 13.87) performed by Jolie Menendez MD at [facility] OR ??? PRO THYMECTOMY, TRANSCERVICAL N/A 11/02/2015 THYMECTOMY, TRANSCERVICAL APPROACH performed by Valentina Lucas MD at [facility] OR ??? SHOULDER SURGERY Left ??? [...] A. 2.0 cm cancer, high-grade, grade 3. ER/WA plus plus plus, HER-2/pat negative, 4/18 nodes [...] EST Appointment Mammography/[place] [address] [facility] [place] [address] 01/30/2024 11:30 AM EST Office Visit Dermatology at [place] [address] [place] [address] [facility] [place] [address] 02/14/2024 7:30 AM EST Appointment Radiology at [facility] [place] [phone] Joanna Watts MD [facility] [place] [address] documented as of this encounter Results * ECHO LMTD W/O CONTRAST W LMTD SPEC DOPP COLOR DOPP (06/01/2017 2:59 PM EDT) EF 70 HEARTLAB SYSTEM Anatomical Region Laterality Modality Other 06/01/2017 Narrative 06/01/2017 3:02 PM EDT Procedure: ?Transthoracic Echocardiogram Patient: ?CORINA Lanier ? (Age): 1965(51y) Med Rec#: ? [id number] ?Sex: ?F ? [place] Loc: ? [facility] [place] ?Ht / Wt: ??152(cm)/79.2(kg Pt. Loc: ?Echo Lab ?BSA: ?1.76 Study Date: ?? 06/01/2017 ?Pt. Type: Outpatient Tape: ? Referring: KENZIE Reading: Javier Donohue ([id number]) Labourers: Tammy Gonzalez Diagnosis: *ICD-10-PCS Malignant neoplasm of [...] ? Mid-Inferior ?Normal ? Mid-Inferoseptal ?Normal ? [place]-Septal ? Normal ? [place]-Anterior ? Normal ? [place]-Lateral ?Normal ? [place]-Inferior ? Normal ? [place]-Tip ?Normal ? This report has been electronically signed by: Javier Donohue M.D. ? 06/01/2017 15:02:16 Images reviewed and interpretation verified [facility] Cardiac Ultrasound Laboratory Procedure Note Javier Donohue MD - 06/01/2017 Procedure: Transthoracic Echocardiogram Patient: CORINA Lanier (Age): 1965(51y) Med Rec#: [id number] Sex: F Site Loc: [facility] [place] Ht / Wt: 152(cm)/79.2(kg Pt. Loc: Echo Lab BSA: 1.76 Study Date: 06/01/2017 Pt. Type: Outpatient Tape: Referring: HUNTERESTELA Reading: Javier Donohue ([id number]) Labourers: Tammy Gonzalez Diagnosis: *ICD-10-PCS Malignant neoplasm of [...] Normal Mid-Posterolateral Normal Mid-Inferior Normal Mid-Inferoseptal Normal [place]-Septal Normal [place]-Anterior Normal [place]-Lateral Normal [place]-Inferior Normal [place]-Tip Normal This report has been electronically signed by: Javier Donohue M.D. 06/01/2017 15:02:16 Images reviewed and interpretation verified [facility] Cardiac Ultrasound Laboratory Bobby Harrison MD ECHO [...] (pediatric) documented in this encounter Care Teams Gum Sprayer Relationship Specialty Start Date End Date Trinh Coates MD [address] [place] [address] PCP - General 01/11/10 documented as of this encounter
--- OUTSIDE RECORDS SUMMARY | 2023-09-25 11:50 | XMS_ITS | Encounter Summary ---
Author Organization [facility] [place] [address] Care Team Providers Care Palliative Care Specialist Name Role Phone Trinh Coates MD Primary Care Provider [phone] Reason for Referral * Physical Therapy (Routine) - Closed Specialty Diagnoses / Procedures Referred By Diamante marin Referred To Contact Physical Therapy Diagnoses Surgery follow-up Jolene Azevedo APRN [facility] [place] [address] Romy Abarca, PT [facility] PHYSICAL MEDICINE & [place] [address] Referral ID Status Reason Start Date Expiration Date V isits Requested Visits Authorized [id number] Closed Evaluate and Treat 05/25/2017 05/25/2018 1 1 Reason for Visit * Reason Comments Follow Up Surgery s/p breast recon, wo und check Encounter Details Date Type Department Care Team (Late st Contact Info) Description 05/25/2017 9:40 AM EDT Office Visit [place] [address] Jolene Azevedo APRN [facility] [place] [address] Surgery follow-up Social History Tobacco Use Types [...] Date of surgery: 04/26/17 Procedure(s): Bilateral TE marketing programs specialist breast reconstruction ([place] 600 cc expanders placed bilaterally and [...] 01/22/2024 10:30 AM EST Appointment Mammography/[place] [phone] Ladi Mendosa MD [facility] DR HEMAT[place] [address] 01/30/2024 11:30 AM EST Office Visit Dermatology at [facility] [address] [place] [phone] Nilda Luis MD [facility] [place] [address] 02/14/2024 7:30 AM EST Appointment [place] [phone] Joanna Watts MD [facility] [place] [address] Scheduled Referrals Name Type Priority Associated Diagnoses Orde r Schedule Referral to Physical Therapy Outpatient Referral Routine Surgery follow-up Ordered: 05/25/2017 documented as of this encounter Visit Diagnoses Diagnosis Surgery follow-up Follow-up examination, following unspecified surgery documented in this encounter Care Teams Palliative Care Specialist Relationship Specialty Start Date End Date Trinh Coates MD [facility] [address] [place] [address] PCP - General 01/11/10 documented as of this encounter
--- OUTSIDE RECORDS SUMMARY | 2023-09-25 11:50 | XMS_ITS | Encounter Summary ---
Author Organization [facility] Address [facility]arita [facility] [place] [address] Care Team Providers Care Mate Chief Name Role Phone Trinh Coates MD Primary Care Provider [phone] Encounter Details Date Type Department Care Team (Late st Contact Info) Description 05/10/2017 Orders [place] [address] Gerri Kendrick, RN S/P breast reconstruction, bilateral [...] 01/22/2024 10:30 AM EST Appointment Mammography/[place] [address] Ladi Mendosa MD [facility] [place] [address] 01/30/2024 11:30 AM EST Office Visit Dermatology at [facility] [address] [place] [phone] Nilda Luis MD [facility] [place] [address] 02/14/2024 7:30 AM [place] [phone] Joanna Watts MD [facility] [place] [address] documented as of this encounter Visit Diagnoses Diagnosis S/P breast reconstruction, bilateral Breast replaced by other means documented in this encounter Care Teams Mate Chief Relationship Specialty Start Date End Date Trinh Coates MD [facility] [address] [facility] [address] [place] [address] PCP - General 01/11/10 documented as of this encounter
--- OUTSIDE RECORDS SUMMARY | 2023-09-25 11:50 | XMS_ITS | Encounter Summary ---
Author Organization [facility] Address [facility] [place] [address] Care Team Providers Care Key Maker Name Role Phone Trinh Coates MD Primary Care Provider [phone] Reason for Referral * Diagnostic Test (Routine) - Closed Specialty Diagnoses / Procedures Referred By Diamante marin Referred To Contact Radiology Diagnoses Malignant neoplasm of female breast, unspecified estrogen receptor status, unspecified laterality, unspecified site of breast Procedures IR Drain Check/Change/Remove Diana Azevedo APRN [facility] [place] [address] [place] [address] Referral ID Status Reason Start Date Expiration Date V isits Requested Visits Authorized [id number] Closed Specialty Service Requested 05/30/2017 05/30/2018 1 1 Encounter Details Date Type Department Care Team (Late st Contact Info) Description 05/30/2017 Orders [place] [address] Diana Azevedo APRN [facility] [place] [address] Malignant neoplasm of female breast, [...] 01/22/2024 10:30 AM EST Appointment Mammography/DXA at [place] [phone] Ladi Mendosa MD [facility] HEMATOLOGY [place] [address] 01/30/2024 11:30 AM EST Office Visit Dermatology at [address] [address] Nilda Luis MD [facility] [place] [address] 02/14/2024 7:30 AM EST Appointment [place] [address] Joanna Watts MD [facility] [place] [address] documented as of this encounter Results * IR Drain Check/Change/Remove (06/06/2017 12:05 PM EDT) Anatomical Region Laterality Modality Head X-Ray Angiograph y Narrative 06/06/2017 1:23 PM EDT IR Procedure Note Procedure: ?1. Right breast drain removal ?2. Left breast drain injection ?3. US evaluation of the left breast History/indication: 51 y.o. female with history of left breast cancer s/p bilateral mastectomy, with tissue mail carrier technician placement. Seen in Plastic Surgery clinic yesterday [...] of the left breast demonstrated the tissue mail carrier technician with several folds but no discreet adjacent fluid collection. Images and exam were reviewed with Dr. Rodriguez (Breast Division) Left breast drain injection showing : The drain is patent; a portion of the contrast collects around the drain laterally; contrast also opacifies a curvilinear space surrounding the mail carrier technician. Complications: ?None immediate; ??EBL=0 Medications: ??1% lidocaine (<10 cc); fentanyl 50 mcg Contrast: ??5 cc non-ionic/omniapque Fluoroscopy time: 1.6 minutes Findings: 1. Right breast drain removal. 2. Left breast US with no fluid collection adjacent to the mail carrier technician observed 3. Left breast drain injection showing contrast collecting around the drain laterally as well as opacifying a curvilinear space around the mail carrier technician. Attending: ?Rashaad Paulson MD ? I was [...] breast documented in this encounter Care Teams Key Maker Relationship Specialty Start Date End Date Trinh Coates MD [address] [facility] 1 [place] [address] PCP - General 01/11/10 documented as of this encounter
--- OUTSIDE RECORDS SUMMARY | 2023-09-25 11:50 | XMS_ITS | Encounter Summary ---
Author Organization [facility] [place] [address] Care Team Providers Care Business Department Chair Name Role Phone Trinh Coates MD Primary Care Provider [phone] Reason for Referral * Diagnostic Test (Routine) - Closed Specialty Diagnoses / Procedures Referred By Contac t Referred To Contact Radiology Diagnoses Malignant neoplasm of left female breast, unspecified estrogen receptor status, unspecified site of breast Procedures IR Drain Check/Change/Remove Christy Keenan MD [facility] [place] [address] [facility] [address] Referral ID Status Reason Start Date Expiration Date V isits Requested Visits Authorized [id number] Closed Specialty Service Requested 05/15/2017 05/15/2018 1 1 Reason for Visit * Diagnostic Test (Routine) - Closed Specialty Diagnoses / Procedures Referred By Contac t Referred To Contact Radiology Diagnoses Malignant neoplasm of left female breast, unspecified estrogen receptor status, unspecified site of breast Procedures IR Drain Check/Change/Remove Christy Keenan MD [facility] [place] [address] [facility] [address] Referral ID Status Reason Start Date Expiration Date V isits Requested Visits Authorized [id number] Closed Specialty Service Requested 05/15/2017 05/15/2018 1 1 Encounter Details Date Type Department Care Team (Latest Contact Info) Description 05/25/2017 10:47 AM EDT - 05/25/2017 11:59 PM EDT Hospital [place] [phone] Flip Paulson MD [facility] [place] [address] Malignant neoplasm of left female breast, unspecified [...] q 6 hrs daily as needed 11/15/2015 ferrous gluconate 324 mg (37.5 mg iron) [...] ??complicated by intraoperative demise followed by Tissue Identity Access Management Architect placement. Patient had a RIGHT breast insitu [...] of left breast in female, estrogen receptor upvlgazdY10.412, Z17.0 ??? Status post bilateral breast reconstruction [...] 42.58) performed by Andre Gimenez MD at [facility] ??? PRO BREAST RECONSTRUC W TISS EXPANDR Bilateral 04/26/2017 BREAST RECONSTRUCTION, IMMEDIATE OR DELAYED, W/ TISSUE HAIR BALER, INCLUDING SUBSEQUENT EXPANSION (WRVU 18.5) performed by Andre Gimenez MD at [facility] OR ??? PRO EXPLORE PARATHYROID GLANDS N/A 11/02/2015 PARATHYROIDECTOMY OR EXPLORATION OF PARATHYROID(S) performed by [facility] [...] ??complicated by intraoperative demise followed by Tissue Identity Access Management Architect placement. Patient had a RIGHT breast insitu [...] of : 1965 AGE 51 y.o. Address: [address] [place] [address] (home) [phone] (work) Mobile: Telephone Information: Referring Provider: Christy Keenan REASON FOR VISIT: Order Questions Question Answer Where will study be performed? [facility] Reason for exam and clinical history: [...] of left breast in female, estrogen receptor glqlqclsZ55.412, Z17.0 ??? Status post bilateral breast reconstruction Z98.890 ??? Surgery follow-up Z09 ??? Abdominal wound dehiscence T81.30XA Pertinent PSH: Past Surgical History: Procedure Laterality Date ??? BREAST BIOPSY Right 11/01 ??? SECTION x 2 ??? HAND SURGERY Right ??? PRG EMG, LARYNX N/A 11/02/2015 FACIAL NERVE MONITORING, SETUP LARYNGEAL performed by Valentina Lucas MD at [facility] ??? PRO BREAST RECONSTRUC W FREE FLAP Bilateral 04/26/2017 @BREAST RECONSTRUCTION W/ FREE FLAP, SUSAN (WRVU 42.58) performed by Andre Gimenez MD at [facility] ??? PRO BREAST RECONSTRUC W TISS EXPANDR Bilateral 04/26/2017 BREAST RECONSTRUCTION, IMMEDIATE OR DELAYED, W/ TISSUE HAIR BALER, INCLUDING SUBSEQUENT EXPANSION (WRVU 18.5) performed by Andre Gimenez MD at [facility] OR ??? PRO EXPLORE PARATHYROID GLANDS N/A 11/02/2015 PARATHYROIDECTOMY OR EXPLORATION OF PARATHYROID(S) performed by Valentina Lucsa MD at [facility] OR [...] 01/22/2024 10:30 AM EST Appointment Mammography/[place] [address] Ladi Mendosa MD [facility] HEMATOLOGY AND ONCOLOGY [place], [place] [address] 01/30/2024 11:30 AM EST Office Visit Dermatology at [address] [phone] Nilda Luis MD [facility] DERMATOLOGY [place], [place] [phone] 02/14/2024 7:30 AM [place] [address] Joanna Watts MD [facility] [place] [address] documented as of this encounter Procedures Procedure [...] ??complicated by intraoperative demise followed by Tissue Identity Access Management Architect placement. Patient had a RIGHT breast insitu [...] injection fills a space surrounding the tissue sound editor. The drain was flushed and re-connected to [...] injection fills a space surrounding the tissue sound editor. The drain was flushed and re-connected to [...] mLs documented in this encounter Care Teams Business Department Chair Relationship Specialty Start Date End Date Trinh Coates MD [facility] [address] [place] [address] PCP - General 01/11/10 documented as of this encounter
--- OUTSIDE RECORDS SUMMARY | 2023-09-25 11:50 | XMS_ITS | Encounter Summary ---
[place] [address] Care Team Providers Care Vibration Technician Name Role Phone Trinh Coates MD Primary Care Provider [phone] Reason for Referral * Diagnostic Test (Routine) - Closed Specialty Diagnoses / Procedures Referred By Contac t Referred To Contact Radiology Diagnoses Status post bilateral breast reconstruction Procedures IR Drain Check/Change/Remove Mali Crowley MD [facility] [address] [place] [address] [place] [address] Referral ID Status Reason Start Date Expiration Date V isits Requested Visits Authorized [id number] Closed Specialty Service Requested 04/30/2017 04/30/2018 1 1 Reason for Visit * Auth/Cert Specialty Diagnoses / Procedures Referred By Contac t Referred To Contact Diagnoses Abdominal wound dehiscence, initial encounter INFECTION Procedures ELA IPI Referral ID Status Reason Start Date Expiration Date Visits Re quested Visits Authorized [id number] 1 1 Encounter Details Date Type Department Care Team (Latest Contact Info) Description 05/10/2017 3:03 PM EDT - 05/15/2017 4:24 PM EDT Hospital Encounter [address] [place] [address] [facility] [place] [address] Status post bilateral breast reconstruction Discharge Disposition: [...] : 51 y.o. 1965 Language, race, ethnicity: Welsh, White, Not nor Date of Admission: 05/10/2017 [...] of JACQUELYN on CPAP, left breast CA ER/CT+, HEr2-, HTN, HLD s/p bilateral mastectomy with [...] LARYNGEAL performed by Valentina Lucas MD at [facility] OR ??? PRO BREAST RECONSTRUC W FREE FLAP Bilateral 04/26/2017 @BREAST RECONSTRUCTION W/ FREE FLAP, SUSAN (WRVU 42.58) [facility] ??? PRO BREAST RECONSTRUC W TISS EXPANDR Bilateral 04/26/2017 BREAST RECONSTRUCTION, IMMEDIATE OR DELAYED, W/ TISSUE SPORTS DEVELOPMENT OFFICER, INCLUDING SUBSEQUENT EXPANSION (WRVU 18.5) performed by Mali Lakhani MD at [facility] OR ??? PRO EXPLORE PARATHYROID GLANDS N/A 11/02/2015 PARATHYROIDECTOMY OR EXPLORATION OF PARATHYROID(S) performed by Valentina Lucas MD at [facility] OR ? ? PRO FULL THICK GRFT TRUNK <20 SQCM Bilateral 04/26/2017 FTSG, FREE, DIR CLOSE DONOR SITE, TRUNK, 20 SQ CM OR LESS (WRVU 9.15) performed by Mali Lakhani MD at [facility] OR ??? PRO MASTECTOMY, SIMPLE, COMPLETE Bilateral 04/26/2017 MASTECTOMY, SIMPLE, COMPLETE-SUSAN (WRVU 15.85) performed by Jolie Menendez MD at [facility] OR ??? PRO PARTIAL REMOVAL OF RIB Bilateral 04/26/2017 EXCISION OF RIB, PARTIAL (WRVU 7.26) performed by Mali Lakhani MD at [facility] OR ??? PRO REMOVE ARMPITS LYMPH NODES COMPLT Left 04/26/2017 LYMPHADENECTOMY, AXILLARY, COMPLETE (WRVU 13.87) performed by Jolie Menendez MD at [facility] MAIN OR ??? PRO THYMECTOMY, TRANSCERVICAL N/A 11/02/2015 THYMECTOMY, TRANSCERVICAL APPROACH performed by Valentina Lucas MD at [facility] MAIN OR ??? SHOULDER SURGERY Left [...] flattened peripheral fluid collections around the tissue packing and shipping clerk. There are as follows: ?? Left 3:00 [...] office hours: Sunday - Sunday 8am-5pm call [phone]. On weekends or after hours call [phone] and ask the data processing operator to page the plastic surgery resident slag production worker. CONTACT INFORMATION: During office hours: Sunday through Sunday 8 am to 5 pm Call [phone] On weekends or after hours: Call [phone] and ask the data processing operator to page the Plastic Surgery Resident slag production worker. Post-Op Plan: - Follow up in 10-14 days for wound check Future Appointments Date Time Provider Department Center 05/21/2017 8:[address] [facility]an [facility] 05/21/2017 9:00 AM Emily Choi MD [facility] 05/21/2017 12:30 PM Gustavo Mota MD [facility] Hem Onc [facility] 05/25/2017 9:40 AM Jolene Azevedo APRN [facility] 4 [facility] 05/25/2017 10:30 AM [facility] IR ROOM 4 [facility] Le[facility] Rad Clin General Instructions INTERVENTIONAL [...] is during regular office hours, please call [phone]. If it is after regular office hours, or on weekends or holidays, please call [phone] and ask to speak to the Personnel Clerk slag production worker for Interventional Radiology. XX You have received [...] [facility] Radiation Oncology at [facility] [phone] 05/21/2017 9:00 AM Emily Choi MD Radiation Oncology at [facility] [phone] 05/21/2017 12:30 PM Rasheeda Trent RN; Gustavo Mota MD; [facility], SOCIAL WORK Hematology and Oncology at [place] [facility] [phone] 05/25/2017 9:40 AM Jolene Azevedo APRN Plastic Surgery at [place] [facility] [phone] 05/25/2017 10:30 AM [facility] IR ROOM 4 Radiology at [place] [phone] Please expect a call from a radiology nurse within 3 days of your exam, you will need to follow theinstructions given at that time. Future Orders Complete By Expires Referral to Home Health - at DISCHARGE [[id number] CPT(R)] As directed Process Instructions: Scheduling Instructions: Comments: DOCUMENTATION FOR VNA SERVICES (INCLUDING THOSE PATIENTS WITH MEDICARE COVERAGE REQUIRING HOME VNA SERVICES AND/OR HOSPICE SERVICES) PATIENT'S LOCATION: Wendy Sandoval [address] [place] [phone] (home) Cell: Telephone Information: Regulatory Compliance Engineer's Name: self and spouse In discussion with the attending physician, it is certified that this patient is under their care and that they, or a Nurse Practitioner,Clinical Nurse specialist or Physician Leveler who is working directly with them, had [...] for managing ADL's and evaluate need for TRIMMING CUTTER MACHINE as appropriate HOME HEALTH CARE AGENCY: [facility] PHONE: [phone] FAX: [phone] Start of care: 24 hrs after discharge Please note that any additional orders needs or changes will need to be obtained from this patient's PCP: MD Abisai Fuller DR / [facility] [id number] All [facility] agencies which cover the area of patient's residence have been reviewed, either verbally luana writing, and patient/family have chosen the home health care agency noted Questions: Agency name and contact information: [facility] Patient location post discharge: home What services [...] Dept Phone 05/21/2017 8:30 AM Suraj Mckeon, [facility] Radiation Oncology at [facility] [phone] 05/21/2017 9:00 AM Emily Choi MD Radiation Oncology at [facility] [phone] 05/21/2017 12:30 PM Rasheeda Trent RN; Gustavo Mota MD; [facility], SOCIAL WORK Hematology and Oncology at [place] [phone] 05/25/2017 9:40 AM Jolene Azevedo APRN Plastic Surgery at [place] [phone] 05/25/2017 10:30 AM [facility] IR ROOM 4 Radiology at [place] [phone] Please expect a call from a radiology nurse within 3 days of your exam, you will need to follow theinstructions given at that time. Future Orders Complete By Expires Referral to Home Health - at DISCHARGE [[id number] CPT(R)] As directed Process Instructions: Scheduling Instructions: Comments: DOCUMENTATION FOR VNA SERVICES (INCLUDING THOSE PATIENTS WITH MEDICARE COVERAGE REQUIRING HOME VNA SERVICES AND/OR HOSPICE SERVICES) PATIENT'S LOCATION: Wendy Sandoval [address] [place] [phone] (home) Cell: Telephone Information: Regulatory Compliance Engineer's Name: self and spouse In discussion with the attending physician, it is certified that this patient is under their care and that they, or a Nurse Practitioner,Clinical Nurse specialist or Physician Leveler who is working directly with them, had [...] for managing ADL's and evaluate need for TRIMMING CUTTER MACHINE as appropriate HOME HEALTH CARE AGENCY: [facility]. PHONE: [phone] FAX: [phone] Start of care: 24 hrs after discharge Please note that any additional orders needs or changes will need to be obtained from this patient's PCP: MD Abisai Fuller [address] / [facility] [id number] All [facility] agencies which cover the area of patient's residence have been reviewed, either verbally luana writing, and patient/family have chosen the home health care agency noted Questions: Agency name and contact information: [facility] Patient location post discharge: home What services are requested: Registered Nurse Physical Therapy Start date: Responsible MD post discharge contact info: PCP Future Appointments Date Time Provider Department Center 05/21/2017 8:[address] [facility] [place] [facility] 05/21/2017 9:00 AM Emily Choi MD [facility] [place] [facility] 05/21/2017 12:30 PM Gustavo Mota MD [facility] 05/25/2017 9:40 AM Jolene Azevedo APRN Leb Plas 4M [facility] 05/25/2017 10:30 AM [facility] IR ROOM 4 IR [facility] Rad Clin Primary Care Provider: Trinh Coates MD [phone] VNA: Discharge Procedure Orders Referral to Home Health - at DISCHARGE Order Comments: DOCUMENTATION FOR VNA SERVICES (INCLUDING THOSE PATIENTS WITH MEDICARE COVERAGE REQUIRING HOME VNA SERVICES AND/OR HOSPICE SERVICES) PATIENT'S LOCATION: [address] [phone] (home) Cell: Telephone Information: Regulatory Compliance Engineer's Name: self and spouse In discussion with the attending physician, it is certified that this patient is under their care and that they, or a Nurse Practitioner,Clinical Nurse specialist or Physician Leveler who is working directly with them, had [...] for managing ADL's and evaluate need for TRIMMING CUTTER MACHINE as appropriate HOME HEALTH CARE AGENCY: [facility]. PHONE: [phone] FAX: [phone] Start of care: 24 hrs after discharge Please note that any additional orders needs or changes will need to be obtained from this patient's PCP: Trinh Coates MD [address] / [facility] [id number] All VNA agencies which cover the area of patient's residence have been reviewed, either verbally luana writing, and patient/family have chosen the home health care agency noted Order Specific Question Answer Comments Agency name and contact information [facility] Patient location post discharge home What services [...] is during regular office hours, please call [phone]. If it is after regular office hours, or on weekends or holidays, please call [phone] and ask to speak to the Personnel Clerk slag production worker for Interventional Radiology. XX You have received [...] by the Plastic SurgeryTeam at [facility]. If you haveany questions or concerns, please feel free to contact us. Provider Contact Information: Plastic Surgery Clinic: [facility] (after business hours): documented in this [...] is during regular office hours, please call [phone]. If it is after regular office hours, or on weekends or holidays, please call [phone] and ask to speak to the Personnel Clerk slag production worker for Interventional Radiology. XX You have received [...] office hours: Sunday - Sunday 8am-5pm call [phone]. On weekends or after hours call [phone] and ask the data processing operator to page the plastic surgery resident slag production worker. CONTACT INFORMATION: During office hours: Sunday through Sunday 8 am to 5 pm Call [phone] On weekends or after hours: Call [phone] and ask the data processing operator to page the Plastic Surgery Resident slag production worker. Post-Op Plan: - Follow up in 10-14 days for wound check Future Appointments Date Time Provider Department Center 05/21/2017 8:[address] [facility] [place] [facility] 05/21/2017 9:00 AM Emily Choi MD [facility] [place] [facility] 05/21/2017 12:30 PM Gustavo Mota MD [facility] Hem Onc [facility] 05/25/2017 9:40 AM Jolene Azevedo APRN [facility] Pl[facility] 4 [facility] 05/25/2017 10:30 AM [facility] IR ROOM 4 [facility] documented in this [...] 1 capsule by mouth daily. 07/26/2015 10/17/2018 norethindrone (AYGESTIN) 5 mg Tablet Take 1 tablet by mouth daily. 09/30/2015 05/25/2017 clobetasol (TEMOVATE) 0.05 % CreamIndications:Psori asis Apply [...] today. CM will confirm services with VNA. [facility]. PHONE: [phone] FAX: [phone] [id number] vac. Anticipate discharge later today. [facility] [...] completed and signed by and faxed to [facility]- awaiting confirmation/release. CM will contact [facility] and alert need for services to being [...] ??complicated by intraoperative demise followed by Tissue Feed Preparation Operator placement.??Patient has a RIGHT breast insitu with [...] check in 2 weeks, order placed and pharmacy scheduler notified. Christy Keenan Interventional Radiology Personnel Clerk PGY2 05/15/2017 * Alma Castillo PA - 05/15/2017 7:38 AM EDT PLASTIC SURGERY INPATIENT PROGRESS NOTE Attending: MALI LAKHANI Patient Location: [address] [place] [address] Hospital Admission Date: 05/10/2017 ID: Wendy Sandoval is a 51 y.o. female patient with PMH of JACQUELYN on CPAP, left breast CA, ER/CT+, HEr2-, HTN, HLD s/p bilateral mastectomy and [...] UA Latest Ref Range: Clear Clear Spec [place] UA Latest Ref Range: 1.002 - 1.030 [...] AM [facility] Qu[facility] Lawson [facility] [place] [facility] 05/21/2017 9:00 AM Emily Choi MD ST [facility] [place] [facility] 05/21/2017 12:30 PM Gustavo Mota MD Leb Hem Onc [facility] 05/25/2017 10:30 AM [facility] IR ROOM 4 IR [facility] Rad Clin Alma Castillo PA-C Plastic Surgery Pager [phone] * Darcy García RN - 05/14/2017 5:40 [...] PROGRESS NOTE Attending: MALI LAKHANI Patient Location: [facility] Hospital Admission Date: 05/10/2017 ID: Wendy Sandoval is a 51 y.o. female patient with PMH of JACQUELYN on CPAP, left breast CA, ER/CT+, HEr2-, HTN, HLD s/p bilateral mastectomy and [...] 8:[address] [facility] 05/21/2017 9:00 AM Emily Choi MD [facility] 05/21/2017 12:30 PM Gustavo Mota MD Le Hem Onc [facility] 05/25/2017 10:30 AM [facility] IR ROOM 4 IR Le[facility] Rad Clin [...] of : 1965 AGE 51 y.o. Address: [address] [place] [phone] (home) [phone] (work) Mobile: Telephone Information: Referring Provider: No ref. provider found REASON FOR VISIT: L axillary drain (Assessment/Plan: 51 y.o. female ??with breast CA to the left. ?Pt underwent bilateral breast reconstruction after mastectomy with SALVADOR flaps (04/26/17); ??complicated by intraoperative demise followed by Tissue Feed Preparation Operator placement.??Patient has a RIGHT breast insitu with [...] of left breast in female, estrogen receptor ddjesbxkZ53.412, Z17.0 ??? Status post bilateral breast reconstruction Z98.890 ??? Surgery follow-up Z09 ??? Abdominal wound dehiscence T81.30XA Pertinent PSH: Past Surgical History: Procedure Laterality Date ??? BREAST BIOPSY Right 11/01 ??? SECTION x 2 ??? HAND SURGERY Right ??? PRG EMG, LARYNX N/A 11/02/2015 FACIAL NERVE MONITORING, SETUP LARYNGEAL performed by Valentina Lucas MD at [facility] OR ??? PRO BREAST RECONSTRUC W FREE FLAP Bilateral 04/26/2017 @BREAST RECONSTRUCTION W/ FREE FLAP, SUSAN (WRVU 42.58) [facility] ??? PRO BREAST RECONSTRUC W TISS EXPANDR Bilateral 04/26/2017 BREAST RECONSTRUCTION, IMMEDIATE OR DELAYED, W/ TISSUE SPORTS DEVELOPMENT OFFICER, INCLUDING SUBSEQUENT EXPANSION (WRVU 18.5) performed by Mali Lakhani MD at [facility] OR ??? PRO EXPLORE PARATHYROID GLANDS N/A 11/02/2015 PARATHYROIDECTOMY OR EXPLORATION OF PARATHYROID(S) performed by Valentina Lucas MD at [facility] OR ? ? PRO FULL THICK GRFT TRUNK <20 SQCM Bilateral 04/26/2017 FTSG, FREE, DIR CLOSE DONOR SITE, TRUNK, 20 SQ CM OR LESS (WRVU 9.15) performed by Mali Lakhani MD at [facility] OR ??? PRO MASTECTOMY, SIMPLE, COMPLETE Bilateral 04/26/2017 MASTECTOMY, SIMPLE, COMPLETE-SUSAN (WRVU 15.85) performed by Jolie Menendez MD at [facility] OR ??? PRO PARTIAL REMOVAL OF RIB Bilateral 04/26/2017 EXCISION OF RIB, PARTIAL (WRVU 7.26) performed by Mali Lakhani MD at [facility] OR ??? PRO REMOVE ARMPITS LYMPH NODES COMPLT Left 04/26/2017 LYMPHADENECTOMY, AXILLARY, COMPLETE (WRVU 13.87) performed by Jolie Menendez MD at [facility] OR ??? PRO THYMECTOMY, TRANSCERVICAL N/A 11/02/2015 THYMECTOMY, TRANSCERVICAL APPROACH performed by Valentina Lucas MD at [facility] OR ??? SHOULDER SURGERY Left [...] ??complicated by intraoperative demise followed by Tissue Feed Preparation Operator placement. Patient has a RIGHT breast insitu [...] of left breast in female, estrogen receptor ronkowfdI94.412, Z17.0 ??? Status post bilateral breast reconstruction [...] LARYNGEAL performed by Valentina Lucas MD at [facility] OR ??? PRO BREAST RECONSTRUC W FREE FLAP Bilateral 04/26/2017 @BREAST RECONSTRUCTION W/ FREE FLAP, SUSAN (WRVU 42.58) performed by Mali Lakhani MD at [facility] [place] ??? PRO BREAST RECONSTRUC W TISS EXPANDR Bilateral 04/26/2017 BREAST RECONSTRUCTION, IMMEDIATE OR DELAYED, W/ TISSUE SPORTS DEVELOPMENT OFFICER, INCLUDING SUBSEQUENT EXPANSION (WRVU 18.5) performed by Mali Lakhani MD at [facility] MA[facility] OR ??? PRO EXPLORE PARATHYROID GLANDS N/A 11/02/2015 PARATHYROIDECTOMY OR EXPLORATION OF PARATHYROID(S) performed by Valentina Lucas MD at [facility] MA[facility] OR ? ? PRO FULL THICK GRFT TRUNK <20 SQCM Bilateral 04/26/2017 FTSG, FREE, DIR CLOSE DONOR SITE, TRUNK, 20 SQ CM OR LESS (WRVU 9.15) performed by Mali Lakhani MD at [facility] MA[facility] OR ??? PRO MASTECTOMY, SIMPLE, COMPLETE Bilateral 04/26/2017 MASTECTOMY, SIMPLE, COMPLETE-SUSAN (WRVU 15.85) performed by Jolie Menendez MD at [facility] OR ??? PRO PARTIAL REMOVAL OF RIB Bilateral 04/26/2017 EXCISION OF RIB, PARTIAL (WRVU 7.26) performed by Mali Lakhani MD at [facility] OR ??? PRO REMOVE ARMPITS LYMPH NODES COMPLT Left 04/26/2017 LYMPHADENECTOMY, AXILLARY, COMPLETE (WRVU 13.87) performed by Jolie Menendez MD at [facility] OR ??? PRO THYMECTOMY, TRANSCERVICAL N/A 11/02/2015 THYMECTOMY, TRANSCERVICAL APPROACH performed by Valentina Lucas MD at [facility] OR ??? SHOULDER SURGERY Left [...] ??complicated by intraoperative demise followed by Tissue Feed Preparation Operator placement. Patient has a RIGHT breast insitu [...] ultrasound for AM Lucina Pedersen MD P. [id number] Attending: Plan discussed and agree as documented. * Bernardo De La Garza - 05/13/2017 3:56 PM EDT Practice Performance Manager Encounter Note Patient Name: Wendy Sandoval : [id number] MR#: [id number] Admit Date: 05/10/2017 3:03 PM Hospital Day 3 days Narrative: Visited to introduce and assess acceptance of Practice Performance Manager services. Pt was awake, alert, oriented and in bed watching TV. Assessment: Patient coping positively with stresses of illness/hospitalization at this time. Pt says that she is feeling better and has supportive family care. Pt said that her is caring and children there. Pt asked for prayers and blessings. Intervention and Outcome: Provided emotional, spiritual support and encouraging presence. Practice Performance Manager services accepted.Conversation to build trusting relationship.Provided prayer.Provided pastoral presence.Provided spiritual guidance. Follow-up: yes Time in Direct Care:20 Mins Bernardo De La Garza 05/13/2017 * Johnathan Salgado MD - 05/13/2017 10:22 AM EDT PLASTIC SURGERY INPATIENT PROGRESS NOTE Attending: MALI LAKHANI Patient Location: [address] [place] [address] Hospital Admission Date: 05/10/2017 ID: Wendy Sandoval is a 51 y.o. female patient with PMH of JACQUELYN on CPAP, left breast CA, ER/CT+, HEr2-, HTN, HLD s/p bilateral mastectomy and [...] 9:00 AM NURSE, PLASTIC SURGERY [facility] 05/14/2017 10:00 AM Jolie Menendez MD Leb Surg [facility] 05/14/2017 3:30 PM Gustavo Mota MD Leb Hem Onc [facility] 05/21/2017 8:[address] J [facility] [place] [facility] 05/21/2017 9:00 AM Emily Choi MD [facility] [place] [facility] 05/25/2017 10:30 AM [facility] IR ROOM 4 IR [facility] Rad Clin Kaveh Whiteside MD Plastic Surgery, PGY-7 Attending: Plan discussed and agree as documented. * Johnathan Salgado MD - 05/12/2017 10:01 AM EDT PLASTIC SURGERY INPATIENT PROGRESS NOTE Attending: MALI LAKHANI Patient Location: [facility] Hospital Admission Date: 05/10/2017 ID: Wendy Sandoval is a 51 y.o. female patient with PMH of JACQUELYN on CPAP, left breast CA, ER/CT+, HEr2-, HTN, HLD s/p bilateral mastectomy and [...] 9:00 AM NURSE, PLASTIC SURGERY [facility] 05/14/2017 10:00 AM Jolie Menendez MD Leb Surg [facility] 05/14/2017 3:30 PM Gustavo Mota MD Leb Hem Onc [facility] 05/21/2017 8:30 AM Rad Nurse, [facility] [place] [facility] 05/21/2017 9:00 AM Emily Choi MD ST [facility] [place] [facility] 05/25/2017 10:30 AM [facility] IR ROOM 4 IR [facility] Rad Clin [...] of left breast in female, estrogen receptor ogqovgasJ34.412, Z17.0 ??? Status post bilateral breast reconstruction [...] of this encounter: 72.6 kg (160 lb). Surprise Body Weight (IBW): Surprise body weight: 45.5 kg (100 lb 4.9 [...] PROGRESS NOTE Attending: MALI LAKHANI Patient Location: [address] [place] [address] Hospital Admission Date: 05/10/2017 ID: Wendy Sandoval is a 51 y.o. female patient with PMH of JACQUELYN on CPAP, left breast CA, ER/CT+, HEr2-, HTN, HLD s/p bilateral mastectomy and [...] AM NURSE, PLASTIC SURGERY [facility] 05/14/2017 10:00 AM Jolie Menendez MD [facility]urg [facility] 05/14/2017 3:30 PM Gustavo Mota MD Leb Hem Onc [facility] 05/21/2017 8:[address] Quan Mckeon [facility] [place] [facility] 05/21/2017 9:00 AM Emily Choi MD [facility] [place] [facility] 05/25/2017 10:30 AM [facility] IR ROOM 4 IR Le[facility] Rad Clin Alma Castillo PA-C Plastic Surgery Pager [phone] * Libertad Mcfarlane RN - 05/11/2017 11:01 AM EDT 1101 To procedure room 3 via stretcher. Onto table in supine position. All monitors, O2, safety strap in place. Med's per protocol. * Christy Keenan MD - 05/11/2017 10:41 AM EDT PRE-SEDATION ASSESSMENT / FOCUSED H&P Addendum: 51 yo female with left breast ca w/ left tissue packing and shipping clerk placement presenting with a left axillary fluid [...] (soft palate, uvula, fauces visible) Christy Keenan Personnel Clerk PGY-2 Pager [phone] * Libertad Mcfarlane RN - 05/11/2017 7:44 AM EDT [facility] NURSING DATABASE Name: WENDY SANDOVAL Date of : 1965 AGE 51 y.o. Address: [address] [place] [phone] (home) [phone] (work) Mobile: Telephone Information: Referring Provider: No ref. provider found REASON FOR VISIT: Order Questions Question Answer Comment Where will study be performed? [facility] Is the patient on anticoagulant / [...] (04/26/17); ??complicated by intraoperative demise followedby Tissue Feed Preparation Operator placement. Patient has a RIGHT breast insitu [...] of left breast in female, estrogen receptor dfnueficH83.412, Z17.0 ??? Status post bilateral breast reconstruction Z98.890 ??? Surgery follow-up Z09 ??? Abdominal wound dehiscence T81.30XA Pertinent PSH: Past Surgical History: Procedure Laterality Date ??? BREAST BIOPSY Right 11/01 ??? SECTION x 2 ??? HAND SURGERY Right ??? PRG EMG, LARYNX N/A 11/02/2015 FACIAL NERVE MONITORING, SETUP LARYNGEAL performed by Valentina Lucas MD at [facility] OR ??? PRO BREAST RECONSTRUC W FREE FLAP Bilateral 04/26/2017 @BREAST RECONSTRUCTION W/ FREE FLAP, SUSAN (WRVU 42.58) [facility]?? PRO BREAST RECONSTRUC W TISS EXPANDR Bilateral 04/26/2017 BREAST RECONSTRUCTION, IMMEDIATE OR DELAYED, W/ TISSUE SPORTS DEVELOPMENT OFFICER, INCLUDING SUBSEQUENT EXPANSION (WRVU 18.5) performed by Mali Lakhani MD at [facility] ??? PRO EXPLORE PARATHYROID GLANDS N/A 11/02/2015 PARATHYROIDECTOMY OR EXPLORATION OF PARATHYROID(S) performed by Valentina Lucas MD at [facility] ? ? PRO FULL THICK GRFT TRUNK <20 SQCM Bilateral 04/26/2017 FTSG, FREE, DIR CLOSE DONOR SITE, TRUNK, 20 SQ CM OR LESS (WRVU 9.15) performed by Mali Lakhani MD at [facility] ??? PRO MASTECTOMY, SIMPLE, COMPLETE Bilateral 04/26/2017 MASTECTOMY, SIMPLE, COMPLETE-SUSAN (WRVU 15.85) performed by Jolie Menendez MD at [facility] ??? PRO PARTIAL REMOVAL OF RIB Bilateral 04/26/2017 EXCISION OF RIB, PARTIAL (WRVU 7.26) performed by Mali Lakhani MD at [facility] ??? PRO REMOVE ARMPITS LYMPH NODES COMPLT Left 04/26/2017 LYMPHADENECTOMY, AXILLARY, COMPLETE (WRVU 13.87) performed by Jolie Menendez MD at [facility] ??? PRO THYMECTOMY, TRANSCERVICAL N/A 11/02/2015 THYMECTOMY, TRANSCERVICAL APPROACH performed by Valentina Lucas MD at [facility] ??? SHOULDER SURGERY Left [...] complicated by intraoperative demise followed by Tissue Feed Preparation Operator placement. Patient has a RIGHT breast insitu [...] of left breast in female, estrogen receptor bipxwdkxR29.412, Z17.0 ??? Status post bilateral breast reconstruction [...] LARYNGEAL performed by Valentina Lucas MD at [facility] ??? PRO BREAST RECONSTRUC W FREE FLAP Bilateral 04/26/2017 @BREAST RECONSTRUCTION W/ FREE FLAP, SUSAN (WRVU 42.58) [facility] ??? PRO BREAST RECONSTRUC W TISS EXPANDR Bilateral 04/26/2017 BREAST RECONSTRUCTION, IMMEDIATE OR DELAYED, W/ TISSUE SPORTS DEVELOPMENT OFFICER, INCLUDING SUBSEQUENT EXPANSION (WRVU 18.5) performed by Mali Lakhani MD at [facility] ??? PRO EXPLORE PARATHYROID GLANDS N/A 11/02/2015 PARATHYROIDECTOMY OR EXPLORATION OF PARATHYROID(S) performed by Valentina Lucas MD at [facility] ? ? PRO FULL THICK GRFT TRUNK <20 SQCM Bilateral 04/26/2017 FTSG, FREE, DIR CLOSE DONOR SITE, TRUNK, 20 SQ CM OR LESS (WRVU 9.15) performed by Mali Lakhani MD at [facility] ??? PRO MASTECTOMY, SIMPLE, COMPLETE Bilateral 04/26/2017 MASTECTOMY, SIMPLE, COMPLETE-SUSAN (WRVU 15.85) performed by Jolie Menendez MD at [facility] ??? PRO PARTIAL REMOVAL OF RIB Bilateral 04/26/2017 EXCISION OF RIB, PARTIAL (WRVU 7.26) performed by Mali Lakhani MD at [facility] ??? PRO REMOVE ARMPITS LYMPH NODES COMPLT Left 04/26/2017 LYMPHADENECTOMY, AXILLARY, COMPLETE (WRVU 13.87) performed by Jolie Menendez MD at [facility] ??? PRO THYMECTOMY, TRANSCERVICAL N/A 11/02/2015 THYMECTOMY, TRANSCERVICAL APPROACH performed by Valentina Lucas MD at [facility] ??? SHOULDER SURGERY Left [...] complicated by intraoperative demise followed by Tissue Feed Preparation Operator placement. Patient has a RIGHT breast insitu [...] Wendy Sandoval Age: 51 y.o. Patient Location: [address] [place] [address] Admission Date: 05/10/2017 3:03 PM Chief Complaint: abdominal pain History of Present Illness: 51yo F pt with history of JACQUELYN on CPAP, left breast CA ER/CT+, HEr2-, HTN, HLD s/p bilateral mastectomy with [...] LARYNGEAL performed by Valentina Lucas MD at [facility] ??? PRO BREAST RECONSTRUC W FREE FLAP Bilateral 04/26/2017 @BREAST RECONSTRUCTION W/ FREE FLAP, SUSAN (WRVU 42.58) performed [facility] ??? PRO BREAST RECONSTRUC W TISS EXPANDR Bilateral 04/26/2017 BREAST RECONSTRUCTION, IMMEDIATE OR DELAYED, W/ TISSUE SPORTS DEVELOPMENT OFFICER, INCLUDING SUBSEQUENT EXPANSION (WRVU 18.5) performed by Mali Lakhani MD at [facility] ??? PRO EXPLORE PARATHYROID GLANDS N/A 11/02/2015 PARATHYROIDECTOMY OR EXPLORATION OF PARATHYROID(S) performed by aVlentina Lucas MD at [facility] ? ? PRO FULL THICK GRFT TRUNK <20 SQCM Bilateral 04/26/2017 FTSG, FREE, DIR CLOSE DONOR SITE, TRUNK, 20 SQ CM OR LESS (WRVU 9.15) performed by Mali Lakhani MD at [facility] ??? PRO MASTECTOMY, SIMPLE, COMPLETE Bilateral 04/26/2017 MASTECTOMY, SIMPLE, COMPLETE-SUSAN (WRVU 15.85) performed by Jolie Menendez MD at [facility] ??? PRO PARTIAL REMOVAL OF RIB Bilateral 04/26/2017 EXCISION OF RIB, PARTIAL (WRVU 7.26) performed by Mali Lakhani MD at [facility] ??? PRO REMOVE ARMPITS LYMPH NODES COMPLT Left 04/26/2017 LYMPHADENECTOMY, AXILLARY, COMPLETE (WRVU 13.87) performed by Jolie Menendez MD at [facility] OR ??? PRO THYMECTOMY, TRANSCERVICAL N/A 11/02/2015 THYMECTOMY, TRANSCERVICAL APPROACH performed by Valentina Lucas MD at [facility] OR ??? SHOULDER SURGERY Left [...] [facility] Surg [facility] 05/14/2017 2:00 PM [facility] IR ROOM 3 [facility] Rad Clin 05/14/2017 3:30 PM Gustavo Mota MD [facility] Hem Onc [facility] 05/21/2017 8:30 AM Rad Nurse, [facility] Rad [facility] [place] [facility] 05/21/2017 9:00 AM Emily Choi MD [facility] [place] [facility] Alma Castillo PA-C Plastic Surgery Pager [phone] documented in this encounter Miscellaneous Notes * [...] Telfa and ABD pads. Sutures to breasts [place]. Bilateral nipples and umbilicus black in color, [...] vrs [facility] support.- is familiar with [facility]. The patient/telesales representative has been provided a list of Home Health Agencies/DME vendors which servetheir preferred geographic area. A letter describing our affiliations was reviewed with them and they were educated about their right to choose where referrals are placed. Patient requests referral to [facility]. PHONE: [phone] FAX: [phone] Expected date of discharge: TBD Referral routed to the Circulation Representative for matching with agency/vendor and to provide any required information. The patient/telesales representative has been provided a list of Home Health Agencies/DME vendors which servetheir preferred geographic area. A letter describing our affiliations was reviewed with them and they were educated about their right to choose where referrals are placed. Patient requests referral [place], [place] or 2. Expected date of discharge: TBD Referral routed to the Circulation Representative for matching with agency/vendor and to provide any required information. At this time will initiate referral to [facility] for wound VAC and follow. Pt would [...] Outcome: Ongoing (Interventions Implemented as Appropriate) 05/13/17 0242 Plan of Care Review Progress progress toward [...] 01/22/2024 10:30 AM EST Appointment Mammography/[place] [address] [facility] HEMATOLOGY [place] [address] 01/30/2024 11:30 AM EST Office Visit Dermatology at [facility] [address] [place] [address] [facility] [place] [address] 02/14/2024 7:30 AM EST Appointment Radiology at [facility] [place] [phone] [facility] [place] [address] documented as of this encounter Procedures Procedure [...] ??complicated by intraoperative demise followed by Tissue Feed Preparation Operator placement. Patient had a RIGHT breast [...] injection fills a space surrounding the tissue packing and shipping clerk. The drain was flushed and re-connected [...] injection fills a space surrounding the tissue packing and shipping clerk. The drain was flushed and re-connected to suction bulb. 2. ??Left axillary drain check: no significant cavity observed on either drain injection or US evaluation. 3. ??Over the wire removal of the left axillary drain as above. Attending: ?Rashaad Paulson MD ? I was present during the intraservice time as documented by the IR Nurse. Mali Crowley MD [facility] IR ORDERABLES * (ABNORMAL) Urinalysis Microscopic Exam (05/14/2017 5:30 PM EDT) RBC, Urine 2 0 - 4 /HPF [facility] WBC, Urine 2 0 - 5 /HPF [facility] Squamous Epithelial Cells Raw Data, Urine 1 <=4 /HPF [facility] Hyaline Casts, Urine 4(H) 0 - 2 /LPF [facility] Urine specimen obtained by clean catch procedure (specimen) 05/14/2017 5:30 PM EDT 05/14/2017 6:07 PM EDT Narrative Resulting Agency Comment Spec In Lab Kaveh Whiteside MD URINE ORDERA BLES Performing Organization Address [facility] Co de Phone Number [facility] [place] [address] * Urine Hold (05/14/2017 5:30 PM EDT) Hold, Urine Sample in lab. [facility] Urine specimen (specimen) Urine / Unknown 05/14/2017 5:30 PM EDT 05/14/2017 6:08 PM EDT Kaveh Whiteside MD URINE ORDERA BLES Performing Organization Address [facility] Co de Phone Number [facility] [place] [address] * (ABNORMAL) Urinalysis with reflex Culture (05/14/2017 5:30 PM EDT) Glucose, Urine Dipstick Negative Negative mg/dL [facility] Protein, Urine Dipstick 100(A) Negative mg/dL [facility] Bilirubin, Urine Dipstick Negative Negative mg/dL [facility] Comment: Clinical correlation required for positive Urine Bilirubin results as false positive may occur with some drugs and drug related products. If a false positive is suspected a serum total bilirubin should be considered if clinically indicated. Urobilinogen, Urine Dipstick Normal Normal mg/dL [facility] pH, Urn (dipstick) 6.0 5.0 - 8.0 [facility] Blood, Urine Dipstick Negative Negative mg/dL [facility] Ketone, Urine Dipstick Negative Negative mg/dL [facility] Nitrite, Urine Dipstick Negative Negative [facility] Leukocytes, Urine Dipstick Negative Negative [facility] Appearance, Urine Dipstick Clear Clear [facility] Specific [place] Urine Automated 1.018 1.002 - 1.030 [facility] Color, Urine Dipstick Yellow Yellow [facility] Reflex to Culture No [facility] Urine specimen obtained by clean catch procedure (specimen) 05/14/2017 5:30 PM EDT 05/14/2017 6:07 PM EDT Narrative Resulting Agency Comment Spec In Lab Mali Lakhani MD URINE ORDERABLES [facility] [place] [address] * IR All Drainage Procedures (05/14/2017 3:49 [...] EDT) Anaerobic Culture No anaerobic organisms isolated [facility] Fluid specimen (specimen) 05/14/2017 3:29 PM EDT 05/14/2017 4:02 PM EDT Comment:LEFT AXIALLARY DRAIN Narrative Resulting Agency Comment Spec In Lab Mali Lakhani MD MICROBIOLOGY - GENER AL ORDERABLES Performing Organization Address [facility] Co de Phone Number [facility] [place] [phone] * Body Fluid Culture, Aerobic (05/14/2017 3:29 PM EDT) Body Fluid Culture No growth [facility] Reviewed Stain No WBC's seen. No microorganisms seen. [facility] Gram Stain Cytocentrifuge Gram Stain performed No WBC's seen. No microorganisms seen. [facility] Fluid specimen (specimen) 05/14/2017 3:29 PM EDT 05/14/2017 4:02 PM EDT Comment:LEFT AXIALLARY DRAIN Narrative Resulting Agency Comment Spec In Lab Mali Lakhani MD MICROBIOLOGY - GENER AL ORDERABLES Performing Organization Address [facility] Co de Phone Number [facility] [place] [address] * US Breast Limited Left (05/14/2017 9:10 AM EDT) Anatomical Region Laterality Modality Breast Left Mammography Impressions 05/14/2017 10:27 AM EDT Fluid collections as described. The periimplant collections are not significant. Clinical follow-up advised. BI-RADS Category 2: Benign Findings Narrative 05/14/2017 10:27 AM EDT EXAMINATION: US ??BREAST LIMITED LEFT CLINICAL HISTORY: 51 y.o. female patient with PMH of JCAQUELYN on CPAP, left breast CA, ER/CT+, HEr2-, HTN, HLD s/p bilateral mastectomy and failed SIEA, left axillary SLN excision and reconstruction with bilateral TE 04/26/2017, now with increased left axillary swelling TECHNIQUE: I performed high-resolution ultrasound of the left axilla and left breast mound/implant COMPARISON: This study was compared with prior images. FINDINGS: There are 3 flattened peripheral fluid collections around the tissue packing and shipping clerk. There are as follows: Left 3:00 2.5 [...] (ABNORMAL) Differential, Automated (05/14/2017 3:32 AM EDT) Neutrophil % 63.2 % [facility] Neutrophil Absolute 7.79(H) 1.70 - 6.10 x10(3)/mc L [facility] Lymph % 16.7 % [facility] Lymphocytes Abs 2.1 0.9 - 3.2 x10(3)/mc L [facility] Monocyte % 9.9 % [facility] Monocyte Abs 1.2(H) 0.3 - 0.9 x10(3)/mc L [facility] Eos % 7.6 % [facility] Eosinophils Abs 0.9(H) 0.0 - 0.4 x10(3)/mc L [facility] Basophil % 1.8 % [facility] Baso Absolute 0.2(H) 0.0 - 0.1 x10(3)/[facility] Immature Gran % 0.80 % [facility] Comment: Immature granulocytes(IG's)percentage and absolute count will include metamyelocytes, myelocytes, and promyelocytes. Blood smears from CBCs yielding IG's will be scanned manually for concordance. If this scan disagrees with the automated IG or if promyelocytes are noted, a manual differential will be performed. Immature Gran Absolute 0.10(H) 0.00 - 0.04 x10(3)/[facility] Blood specimen (specimen) 05/14/2017 3:32 AM EDT 05/14/2017 4:03 AM EDT Narrative Resulting Agency Comment Spec In Lab Kaveh Whiteside MD HEMATOLOGY O RDERABLES [facility] [place] [address] * (ABNORMAL) Hemogram (05/14/2017 3:32 AM EDT) White Blood Cell 12.3(H) 4.0 - 9.5 x10(3)/[facility] Red Blood Cell 3.46(L) 4.00 - 5.21 x10(6)/[facility] Hemoglobin 10.6(L) 11.7 - 15.5 gm/dL [facility] Hematocrit 32.4(L) 35.7 - 45.8 % [facility] Mean Cell Volume 93.6 82.6 - 94.4 fL [facility] Mean Cell Hemoglobin 30.6 27.1 - 32.0 pg [facility] Mean Cell Hemoglobin Concentration 32.7 31.7 - 35.0 gm/dL [facility] Platelet 575(H) 145 - 357 x10(3)/[facility] RDW Standard Deviation 46.7(H) 37.0 - 46.0 fL [facility] RDW coefficient of variation 13.7 11.5 - 14.1 % [facility] Mean Platelet Volume 8.7 7.6 - 12.9 fL [facility] NRBC% auto 0.0 % [facility] NRBC Absolute 0.000 0.000 - 0.000 x10(3)/mc L [facility] Blood specimen (specimen) 05/14/2017 3:32 AM EDT 05/14/2017 4:03 AM EDT Narrative Resulting Agency Comment Spec In Lab Kaveh Whiteside MD HEMATOLOGY O RDERABLES [facility] [place] [address] * (ABNORMAL) Differential, Automated (05/13/2017 3:46 AM EDT) Neutrophil % 61.8 % [facility] Neutrophil Absolute 8.09(H) 1.70 - 6.10 x10(3)/mc L [facility] Lymph % 16.8 % [facility] Lymphocytes Abs 2.2 0.9 - 3.2 x10(3)/mc L [facility] Monocyte % 10.7 % [facility] Monocyte Abs 1.4(H) 0.3 - 0.9 x10(3)/mc L [facility] Eos % 8.1 % [facility] Eosinophils Abs 1.1(H) 0.0 - 0.4 x10(3)/mc L [facility] Basophil % 1.7 % [facility] Baso Absolute 0.2(H) 0.0 - 0.1 x10(3)/mc L [facility] Immature Gran % 0.90 % [facility] Comment: Immature granulocytes(IG's)percentage and absolute count will include metamyelocytes, myelocytes, and promyelocytes. Blood smears from CBCs yielding IG's will be scanned manually for concordance. If this scan disagrees with the automated IG or if promyelocytes are noted, a manual differential will be performed. Immature Gran Absolute 0.12(H) 0.00 - 0.04 x10(3)/mc L [facility] Blood specimen (specimen) 05/13/2017 3:46 AM EDT 05/13/2017 4:22 AM EDT Narrative Resulting Agency Comment Spec In Lab Kaveh Whiteside MD HEMATOLOGY O RDERABLES [facility] [place] [address] * (ABNORMAL) Hemogram (05/13/2017 3:46 AM EDT) White Blood Cell 13.1(H) 4.0 - 9.5 x10(3)/mc L [facility] Red Blood Cell 3.27(L) 4.00 - 5.21 x10(6)/mc L [facility] Hemoglobin 10.4(L) 11.7 - 15.5 gm/dL [facility] Hematocrit 31.1(L) 35.7 - 45.8 % [facility] Mean Cell Volume 95.1(H) 82.6 - 94.4 fL [facility] Mean Cell Hemoglobin 31.8 27.1 - 32.0 pg [facility] Mean Cell Hemoglobin Concentration 33.4 31.7 - 35.0 gm/dL [facility] Platelet 558(H) 145 - 357 x10(3)/mc L [facility] RDW Standard Deviation 47.8(H) 37.0 - 46.0 fL [facility] RDW coefficient of variation 13.8 11.5 - 14.1 % [facility] Mean Platelet Volume 8.7 7.6 - 12.9 fL [facility] NRBC% auto 0.0 % [facility] NRBC Absolute 0.000 0.000 - 0.000 x10(3)/mc L [facility] Blood specimen (specimen) 05/13/2017 3:46 AM EDT 05/13/2017 4:22 AM EDT Narrative Resulting Agency Comment Spec In Lab Kaveh Whiteside MD HEMATOLOGY O RDERABLES [facility] [place] [address] * (ABNORMAL) Urine culture Clean Catch Urine (05/11/2017 2:48 PM EDT) Urine Culture 10,000-49,000 cfu/ml Escherichia coli 10,000-49,000 cfu/ml Enterococcus faecium * VRE, Vancomycin Resistance * (A) [facility] Organism Escherichia coli(A) [facility] Organism Enterococcus faecium(A) [facility] Urine specimen obtained by clean catch [...] METHOD Resistant Mali Lakhani MD MICROBIOLOGY - GENER AL ORDERABLES [facility] [place] [address] * IR All Drainage Procedures (05/11/2017 11:38 [...] ??complicated by intraoperative demise followed by Tissue Feed Preparation Operator placement. Patient has a RIGHT breast insitu [...] EDT) Anaerobic Culture No anaerobic organisms isolated [facility] Fluid specimen (specimen) 05/11/2017 11:20 AM EDT 05/11/2017 12:03 PM EDT Comment:S/P BREAST RECONSTRU CTION WITH TISSUE EXPANDERS NOW WITH FLUID COLLECTION TO LEFT AXILLA Narrative Resulting Agency Comment Spec In Lab Mali Lakhani MD MICROBIOLOGY - GENER AL ORDERABLES [facility] [place] [address] * Body Fluid Culture, Aerobic (05/11/2017 11:20 AM EDT) Body Fluid Culture No growth [facility] Gram Stain Cytocentrifuge Gram Stain performed No WBC's seen. No microorganisms seen. [facility] Fluid specimen (specimen) 05/11/2017 11:20 AM EDT 05/11/2017 12:03 PM EDT Comment:S/P BREAST RECONSTRU CTION WITH TISSUE EXPANDERS NOW WITH FLUID COLLECTION TO LEFT AXILLA Narrative Resulting Agency Comment Spec In Lab Mali Lakhani MD MICROBIOLOGY - GENER AL ORDERABLES [facility] [place] [address] * (ABNORMAL) Differential, Automated (05/10/2017 5:20 PM EDT) Neutrophil % 72.0 % [facility] Neutrophil Absolute 13.44(H) 1.70 - 6.10 x10(3)/ L [facility] Lymph % 13.0 % [facility] Lymphocytes Abs 2.4 0.9 - 3.2 x10(3)/ L [facility] Monocyte % 8.7 % [facility] Monocyte Abs 1.6(H) 0.3 - 0.9 x10(3)/ L [facility] Eos % 3.8 % [facility] Eosinophils Abs 0.7(H) 0.0 - 0.4 x10(3)/[facility] Basophil % 1.3 % [facility] Baso Absolute 0.2(H) 0.0 - 0.1 x10(3)/ L [facility] Immature Gran % 1.20 % [facility] Comment: Immature granulocytes(IG's)percentage and absolute count will include metamyelocytes, myelocytes, and promyelocytes. Blood smears from CBCs yielding IG's will be scanned manually for concordance. If this scan disagrees with the automated IG or if promyelocytes are noted, a manual differential will be performed. Immature Gran Absolute 0.22(H) 0.00 - 0.04 x10(3)/ L [facility] Blood specimen (specimen) 05/10/2017 5:20 PM EDT 05/10/2017 5:40 PM EDT Narrative Resulting Agency Comment Spec In Lab Alma CLALES HEMATOLOGY ORDERABL ES [facility] [place] [address] * (ABNORMAL) Hemogram (05/10/2017 5:20 PM EDT) White Blood Cell 18.6(H) 4.0 - 9.5 x10(3)/mc L [facility] Red Blood Cell 3.71(L) 4.00 - 5.21 x10(6)/mc L [facility] Hemoglobin 11.7 11.7 - 15.5 gm/dL [facility] Hematocrit 35.3(L) 35.7 - 45.8 % [facility] Mean Cell Volume 95.1(H) 82.6 - 94.4 fL [facility] Mean Cell Hemoglobin 31.5 27.1 - 32.0 pg [facility] Mean Cell Hemoglobin Concentration 33.1 31.7 - 35.0 gm/dL [facility] Platelet 567(H) 145 - 357 x10(3)/mc L [facility] RDW Standard Deviation 47.4(H) 37.0 - 46.0 fL [facility] RDW coefficient of variation 13.5 11.5 - 14.1 % [facility] Mean Platelet Volume 8.9 7.6 - 12.9 fL [facility] NRBC% auto 0.0 % [facility] NRBC Absolute 0.000 0.000 - 0.000 x10(3)/mc L [facility] Blood specimen (specimen) 05/10/2017 5:20 PM EDT 05/10/2017 5:40 PM EDT Narrative Resulting Agency Comment Spec In Lab Alma CALLES HEMATOLOGY ORDERABL ES Performing Organization Address City/[facility]/ZIP Co de Phone Number [facility] [place] [address] * (ABNORMAL) Prealbumin (05/10/2017 5:20 PM EDT) Prealbumin 46(H) 20 - 40 mg/dL [facility] Comment: Prealbumin levels are generally lower in the pediatric population; adult concentrations are usually attained near puberty. Blood specimen (specimen) 05/10/2017 5:20 PM EDT 05/10/2017 5:40 PM EDT Narrative Resulting Agency Comment Spec In Lab Mali Lakhani MD CHEMISTRY ORDERABLES Performing Organization Address [facility] Co de Phone Number [facility] [place] [address] documented in this encounter Visit Diagnoses Diagnosis [...] Starting on Sosa 05/10/17 at 1627, Until Sosa 05/10/17 at 1727, Pain, Maximum dose of acetaminophen is 4000 mg from all sources in 24 hours., Routine Given 05/10/2017 4:54 PM EDT 650 mg atorvastatin (LIPITOR) tablet 20 mg 20 mg, Oral, EVERY EVENING, First dose on Sosa 05/10/17 at 1700, Until Discontinued, Routine Given 05/14/2017 [...] 1053, Until Sun05/11/17 at 1105, [address]: cabinet override fentaNYL 50 mcg/mL multi-dose injection [...] 12.5 mg, Oral, DAILY, First dose on Sun05/10/17 at 1800, Until Discontinued, Routine Given 05/14/2017 8:49 PM EDT 12.5 mg Given 05/13/2017 8:13 PM EDT 12.5 mg Given 05/12/2017 9:44 PM EDT 12.5 mg Lactobacillus (BACID) tablet 1 tablet 1 tablet, Oral, DAILY, First dose on Sun05/10/17 at 1645, Until Discontinued, Routine Given 05/15/2017 [...] Rochelle Garcia) 0039 (Given - Provider: Elisa Hagen, RN)0601 (Given - Provider: Elisa Hagen RN)1349 (Given - Provider: Darcy García RN - Comment: moved per patient request)1745 (Not Given - Provider: Darcy García RN - Reason: Patient/family refused)2345 (Not Given [...] Ailyn Pruitt RN)0626 (Stopped - Provider: Milagro Pollard, JENNYFER)1340 (New Bag - Provider: Milagro Pollard, JENNYFER)141 (Stopped - Provider: Milagro Pollard, JENNYFER)2012 (New Bag - Provider: Elisa Hagen RN)2042 (Stopped - Provider: Elisa Hagen RN) 0600 (New Bag - Provider: Elisa Hagen RN)0630 (Stopped - Provider: Darcy García RN)1349 (New Bag - Provider: Darcy García RN)1419 (Stopped - Provider: Darcy García, JENNYFER)211 (New Bag - Provider: Kristal Alberto RN)214 (Stopped - Provider: Kristal Alberto RN) 0538 (New Bag - Provider: Kristal Alberto RN)0608 (Stopped - Provider: Lucina Allred, JENNYFER)1231 (New Bag - Provider: Lucina Allred, JENNYFER)1301 (Stopped - Provider: Lucina Allred RN) dilTIAZem [...] Discontinued, Routine 0834 (Given - Provider: Milagro Pollard, JENNYFER)2012 (Given - Provider: Elisa Hagen RN) 0900 (Not Given - Provider: Darcy García RN - Reason: Patient/family refused)2047 (Given - Provider: Kristal Alberto RN) 09 (Given - Provider: Lucina Allred, JENNYFER) ferrous gluconate tablet 324 mg 324 mg, Oral, DAILY, First dose on Sosa 05/10/17 at 1645, Until Discontinued 08 (Given - Provider: Milagro Pollard RN) 999 (Given - Provider: Darcy García RN) 0900 (Not Given - Provider: Lucina Allred [...] Sosa 05/10/17 at 1645, Until Discontinued, Routine 0833 (Given - Provider: Milagro Pollard RN) 1000 (Given - Provider: Darcy García RN) 09 (Given - Provider: Lucina Allred RN) levothyroxine (SYNTHROID) tablet 112 mcg 112 mcg, Oral, EVERY MORNING, First dose on Sun05/11/17 at 0600, Until Discontinued, Routine 0555 (Given - Provider: Ailyn Pruitt RN) 06 (Given - Provider: Elisa Hagen RN) 0538 (Given - Provider: Kristal Alberto RN) norethindrone (AYGESTIN) tablet 5 mg 5 mg, Oral, DAILY, First dose on Sosa 05/10/17 at 1800, Until Discontinued, Routine 0835 (Not [...] RN)2012 (Given - Provider: Elisa Hagen RN) 1000 (Given - Provider: Darcy García JENNYFER)2048 (Given - Provider: Kristal Alberto, JENNYFER) 0929 (Given - Provider: Lucina Allred, JENNYFER) silver sulfADIAZINE (SILVADENE) 1 % cream Topical (Top), 2 TIMES DAILY, First dose on Sosa 05/10/17 at 2100, Until Discontinued, BID to umbilicus and nipples Completely wipe off before reapplying 0837 (Given - Provider: Milagro Pollard RN)2146 (Given - Provider: Elisa Hagen RN) 999 (Given - Provider: Darcy García RN)2109 (Given - Provider: Kristal Alberto, JENNYFER) 0945 (Given - Provider: Lucina Allred, JENNYFER) sodium chloride 0.9 % flush 5 mL 5 mL, Intravenous, 2 TIMES DAILY, First dose on Sosa 05/10/17 at 2100, Until Discontinued, Recovery (Recovery-Hospital Unit), Routine 0837 (Given - Provider: Milagro Pollard RN)2013 (Given - Provider: Elisa Hagen RN) 1043 (Given - Provider: Darcy García RN)2109 (Given - Provider: Kristal Alberto, JENNYFER) 0946 (Given - Provider: Lucina Allred, JENNYFER) valsartan (DIOVAN) tablet 160 mg(Linked Group 1) 160 mg, Oral, DAILY, First dose on Sosa 05/10/17 at 1800, Until Discontinued, Routine 2012 (Given - Provider: Elisa Hagen RN) 2047 (Given - Provider: Kristal Alberto, JENNYFER) PRN Medication Order 05/13/2017 05/14/2017 05/15/2017 bisacodyl (DULCOLAX) suppository 10 mg 10 mg, Rectal, DAILY PRN, Starting on Sosa 05/10/17 at 1627, Until Sun05/15/17 at 1824, Constipation, Administer if needed per [...] 1155, Until Sun05/15/17 at 1824, Heartburn, Routine 1226 (Given - Provid er: Lucina Allred, JENNYFER)1238 (Given - Provider: uLcina Allred RN - Comment: Given with OK from [place]) fentaNYL 50 mcg/mL multi-dose injection (CANCELED) 25-50 [...] (Intra-Procedure), Routine 1520 (Given - Provider: Jazmyn Burrell, JENNYFER)1530 (Given - Provider: Jazmyn Burrell RN) lidocaine (XYLOCAINE) 10 mg/mL (1 %) injection 3 mg 3 mg (0.3 mL), Subcutaneous, ONCE PRN, 1 dose, Starting on Sosa 05/10/17 at 1627, Until Sun05/15/17 at 1824, for discomfort with PIV insertion, Recovery (Recovery-Hospital Unit), Routine ondansetron (ZOFRAN) injection 4 mg(Linked Group 2) 4 mg, Intravenous, EVERY 8 HOURS PRN, Starting on Sosa 05/10/17 at 1627, Until e 05/15/17 at 1824, Nausea, May repeat times one in 30 minutes if ineffective. If multiple antiemetics are ordered, use ondanstron first, Recovery (Recovery-Hospital Unit) 1349 (See Alternative - Provider: Darcy García RN) 0542 (See Alternative - Provider: Kristal Alberto RN)1226 (See Alternative - Provider: Lucina Allred RN) ondansetron (ZOFRAN) tablet 4 mg(Linked Group [...] Unit), Routine 1349 (Given - Provider: Darcy García RN) 0542 (Given - Provider: Kristal Alberto RN)1226 (Given - Provider: Lucina Allred RN - Comment: ppx for nausea with ABX dose) oxyCODONE (ROXICODONE) immediate release tablet 5 mg 5 mg, Oral, EVERY 4 HOURS PRN, Starting on Sosa 05/10/17 at 1727, Until 05/15/17 at 1824, Pain, Routine prochlorperazine (COMPAZINE) injection 10 mg(Linked Group 3) 10 mg, Intravenous, EVERY 6 HOURS PRN, Starting on Sosa 18 at 1627, Until 05/15/17 at 1824, Nausea, [...] EVERY 1 MIN PRN, Starting on Sosa 18 at 1627, Until Tue 18 at 1824, flush, Flush pertains to all [...] Routine documented in this encounter Care Teams Vibration Technician Relationship Specialty Start Date End Date Trinh Coaets MD [address] [place] [address] PCP - General 01/11/10 documented as of this encounter
--- OUTSIDE RECORDS SUMMARY | 2023-09-25 11:50 | XMS_ITS | Encounter Summary ---
Author Organization [facility] Address [facility] [place] [address] Care Team Providers Care Inventory And Pricing Associate Name Role Phone Trinh Coates MD Primary Care Provider [phone] Encounter Details Date Type Department Care Team (Latest Contact Info) Description 05/09/2017 Multidisciplinary Ca re Committee [place] [address] Jolie Menendez MD [facility] [place] [address] Social History Tobacco Use Types Packs/Day Years [...] right breast was normal. Biopsy revealed strongly ER/VT+, HER2- IDC. MRI was then obtainedfor surgical planning. This revealed a possible second lesion 2 cm from the index lesion as well asabnormal appearing nodes. The right breast was normal. Biopsy of the node was positive. Wendy has a strong family history of cancer (breast and colon). She opted for bilateral mastectomy with immediate reconstruction (SALVADOR converted to sales service promoter). Pathology revealed: 4/18 nodes with focal SANGEETHA [...] 01/22/2024 10:30 AM EST Appointment Mammography/[place] [phone] Ladi Mendosa MD [facility] HEMATOLOGY [place] [address] 01/30/2024 11:30 AM EST Office Visit Dermatology at [address] [address] Nilda Luis MD [facility] [place] [address] 02/14/2024 7:30 AM EST [place] [address] Joanna Watts MD [facility] [place] [address] documented as of this encounter Visit Diagnoses Not on filedocumented in this encounter Care Teams Inventory And Pricing Associate Relationship Specialty Start Date End Date Trinh Coates MD [address] [place] [address] PCP - General 01/11/10 documented as of this encounter
--- OUTSIDE RECORDS SUMMARY | 2023-09-25 11:50 | XMS_ITS | Encounter Summary ---
Author Organization [facility] Address [facility] [place] [address] Care Team Providers Care Quality Control Tech Name Role Phone Trinh Coates MD Primary Care Provider [phone] Reason for Visit * Reason Comments Radiation Consult * Consultation (Routine) - Closed Specialty Diagnoses / Procedures Referred By Diamante marin Referred To Contact Radiation Oncology Diagnoses Breast cancer Jolie Menendez MD [facility] [place] [address] St Rad Onc Office [address] [place] [phone] Referral ID Status Reason Start Date Expiration Date Visits Re quested Visits Authorized [id number] Closed 04/26/2017 04/26/2018 1 1 Encounter Details Date Type Department Care Team (Late st Contact Info) Description 06/04/2017 9:00 AM EDT Office Visit Radiation Oncology at [address] [address] Emily Choi MD [facility] [place] [address] Malignant neoplasm of left female breast, unspecified [...] Family. Barriers to treatment: none identified. Referrals/Interventions: INSIDE SALES COORDINATOR on day of simulation. RADIATION SPECIFIC TEACHING: [...] cm from nipple. Path: IDC, high gr, ER+UT+, Her2 FISH neg. 03/27/17 B breast MRI: [...] which cannot be determined by CT appearance. 3/23/18 US showed posterior L axillary fluid collection & w/US guidance IR aspirated 45 cc clear serous fluid w/trace amount fluid remaining. Increased axillary swelling. 05/14/17 US L axilla & L breast mount/implant: 3 flattened peripheral fluid collections deemed not significant around tissue counselor supervisor. 5.5 x 2.7 x 4.5 cm postop [...] Plastics. ROS: Healing ok. Periodically L breast counselor supervisor is very tender (level 5 on 1-10 [...] LARYNGEAL performed by Valentina Lucas MD at [facility] MAIN OR ??? PRO BREAST RECONSTRUC W FREE FLAP Bilateral 04/26/2017 @BREAST RECONSTRUCTION W/ FREE FLAP, SUSAN (WRVU 42.58) performed by Andre Gimenez MD at [facility] [place] ??? PRO BREAST RECONSTRUC W TISS EXPANDR Bilateral 04/26/2017 BREAST RECONSTRUCTION, IMMEDIATE OR DELAYED, W/ TISSUE CRUCIBLE FURNACE TENDER, INCLUDING SUBSEQUENT EXPANSION (WRVU 18.5) performed by Andre Gimenez MD at [facility] MAIN OR ??? PRO EXPLORE PARATHYROID GLANDS N/A 11/02/2015 PARATHYROIDECTOMY OR EXPLORATION OF PARATHYROID(S) performed by Valentina Lucas MD at [facility] MAIN OR ? ? PRO FULL THICK GRFT TRUNK <20 SQCM Bilateral 04/26/2017 FTSG, FREE, DIR CLOSE DONOR SITE, TRUNK, 20 SQ CM OR LESS (WRVU 9.15) performed by Andre Gimenez MD at [facility] MAIN OR ??? PRO MASTECTOMY, SIMPLE, COMPLETE Bilateral 04/26/2017 MASTECTOMY, SIMPLE, COMPLETE-SUSAN (WRVU 15.85) performed by Jolie Menendez MD at [facility] OR ??? PRO PARTIAL REMOVAL OF RIB Bilateral 04/26/2017 EXCISION OF RIB, PARTIAL (WRVU 7.26) performed by Andre Gimenez MD at [facility] MAIN OR ??? PRO REMOVE ARMPITS LYMPH NODES COMPLT Left 04/26/2017 LYMPHADENECTOMY, AXILLARY, COMPLETE (WRVU 13.87) performed by Jolie Menendez MD at [facility] MAIN OR ??? PRO THYMECTOMY, TRANSCERVICAL [...] A: Breast ca, L, IDC, gr 3, ER+UT+, Her2 FISH neg, s/p B skin sparing [...] 3-4 wks after chemo completion or after counselor supervisor exchange for implant. Possible side effects of [...] extremity turns pink or starts to swell. Late/assistant terminal manager side effects of xrt discussed include: Treated [...] iated 2nd malignancy. We discussed risk of counselor supervisor/implant contracture/loss as well as risk of fat necrosis. Need for CTsim prior to xrt discussed. At CTsim, she will be evaluated for use of deep inspiration breath hold (DIBH) to decrease dose of xrt to heart. She would like to proceed w/plan for xrt & will be contacted as she nears chemo completion regarding CTsim appt, which will depend on timing of counselor supervisor exchange. She has appt w/PT locally in near future for arm ROM. 25 mins of 40 min face to face visit w/Wendy spent discussing rationale for xrt; hoped for benefit of xrt; possible side effects/complications of xrt; prevention/management of side effects/complications of xrt; logistics of daily xrt; timing of xrt vis a vis chemo/counselor supervisor exchange; CTsimulation w/eval for DIBH; arm position required for xrt; followup after completion of xrt. Radiation garcia:Post mastectomy Radiation boost:No Total dose of radiation: 50.4 Gy documented in this encounter Plan of Treatment Upcoming Encounters Date Type Department Care Team (Late st Contact Info) Description 01/22/2024 10:30 AM EST Appointment Mammography/[place] [phone] Ladi Mendosa MD [facility] HEMATOLOGY [place] [address] 01/30/2024 11:30 AM EST Office Visit Dermatology at [facility] [address] [place] [address] Nilda Luis MD [facility] [place] [address] 02/14/2024 7:30 AM EST [place] [phone] Joanna Watts MD [facility] [place] [address] documented as of this encounter Visit Diagnoses Diagnosis Malignant neoplasm of left female breast, unspecified estrogen receptor status, unspecified site of breast documented in this encounter Care Teams Quality Control Tech Relationship Specialty Start Date End Date Trinh Coates MD [address] [place] [address] PCP - General 01/11/10 documented as of this encounter
--- OUTSIDE RECORDS SUMMARY | 2023-09-25 11:50 | XMS_ITS | Encounter Summary ---
Author Organization [facility] Address [facility] [place] [address] Care Team Providers Care Claim Inspector Name Role Phone Trinh Coates MD Primary Care Provider Encounter Details Date Type Department Care Team (Late st Contact Info) Description 05/10/2017 Orders [place] [phone] Andre Gimenez MD [facility] [place] [address] S/P breast reconstruction Social History Tobacco Use [...] 01/22/2024 10:30 AM EST Appointment Mammography/[place] [phone] Ladi Mendosa MD [facility] DR HEMATOLOGY [place] [address] 01/30/2024 11:30 AM EST Office Visit Dermatology at [facility] [address] [place] [address] Nilda Luis MD [facility] [place] [address] 02/14/2024 7:30 AM EST Appointment [place] [phone] Joanna Watts MD [facility] [place] [address] documented as of this encounter Visit Diagnoses Diagnosis S/P breast reconstruction Breast replaced by other means documented in this encounter Care Teams Claim Inspector Relationship Specialty Start Date End Date Trinh Coates MD [facility] [address] [facility] [address] [place] [address] PCP - General 01/11/10 documented as of this encounter
--- OUTSIDE RECORDS SUMMARY | 2023-09-25 11:50 | XMS_ITS | Encounter Summary ---
Author Organization [facility] Address [facility] [place] [address] Care Team Providers Care Patent Engineer Name Role Phone Trinh Coates MD Primary Care Provider [phone] Encounter Details Date Type Department Care Team (Late st Contact Info) Description 05/21/2017 Notes Only Care Management [facility] [place] [phone] Gail Yo MSW Social History Tobacco Use [...] 01/22/2024 10:30 AM EST Appointment Mammography[place] [address] Ladi Mendosa MD [facility] [place] [address] 01/30/2024 11:30 AM EST Office Visit Dermatology at [facility] [address] [place] [phone] Nilda Luis MD [facility] [place] [address] 02/14/2024 7:30 AM EST [place] [phone] Joanna Watts MD [facility] [place] [address] documented as of this encounter Visit Diagnoses Not on filedocumented in this encounter Care Teams Patent Engineer Relationship Specialty Start Date End Date Trinh Coates MD [facility] [address] [place] [address] PCP - General 01/11/10 documented as of this encounter
--- OUTSIDE RECORDS SUMMARY | 2023-09-25 11:50 | XMS_ITS | Encounter Summary ---
Author Organization [facility] [place] [address] Care Team Providers Care Information Security Architect Name Role Phone Trinh Coates MD Primary Care Provider [phone] Reason for Referral * Diagnostic Test (Routine) - Closed Specialty Diagnoses / Procedures Referred By Contac t Referred To Contact Radiology Diagnoses Fluid collection at surgical site, initial encounter Procedures IR All Drainage Procedures Jarod Damico MD [facility] [place] [address] [place] [address] Referral ID Status Reason Start Date Expiration Date V isits Requested Visits Authorized [id number] Closed Specialty Service Requested 06/05/2017 06/05/2018 1 1 Reason for Visit * Diagnostic Test (Routine) - Closed Specialty Diagnoses / Procedures Referred By Contac t Referred To Contact Radiology Diagnoses Fluid collection at surgical site, initial encounter Procedures IR All Drainage Procedures Jarod Damico MD [facility] [place] [address] [place] [address] Referral ID Status Reason Start Date Expiration Date V isits Requested Visits Authorized [id number] Closed Specialty Service Requested 06/05/2017 06/05/2018 1 1 Encounter Details Date Type Department Care Team (Latest Contact Info) Description 06/06/2017 10:43 AM EDT - 06/06/2017 11:59 PM EDT Hospital Encounter Radiology at [facility] [place] [address] Jarod Damico MD [facility] [place] [address] Fluid collection at surgical site, initial encounter [...] 01/22/2024 10:30 AM EST Appointment Mammography/[place] [address] Ladi Mendosa MD [facility] [place] [address] 01/30/2024 11:30 AM EST Office Visit Dermatology at [facility] [address] [place] [address] Nilda Luis MD [facility] [place] [address] 02/14/2024 7:30 AM [place] [phone] Joanna Watts MD [facility] [place] [address] documented as of this encounter Procedures Procedure [...] breast cancer s/p bilateral mastectomy, with tissue inbound sales representative placement. Seen in Plastic Surgery clinic yesterday [...] of the left breast demonstrated the tissue inbound sales representative with several folds but no discreet adjacent fluid collection. Images and exam were reviewed with Dr. Rodriguez (Breast Division) Left breast drain injection showing : The drain is patent; a portion of the contrast collects around the drain laterally; contrast also opacifies a curvilinear space surrounding the inbound sales representative. Complications: ?None immediate; ??EBL=0 Medications: ??1% lidocaine (<10 cc); fentanyl 50 mcg Contrast: ??5 cc non-ionic/omniapque Fluoroscopy time: 1.6 minutes Findings: 1. Right breast drain removal. 2. Left breast US with no fluid collection adjacent to the inbound sales representative observed 3. Left breast drain injection showing contrast collecting around the drain laterally as well as opacifying a curvilinear space around the inbound sales representative. Attending: ?Rashaad Paulson MD ? I was present during the intraservice time as documented by the IR Nurse. Jarod Damico MD [facility] IR ORDERABLES documented in this encounter Visit Diagnoses Diagnosis Fluid collection at surgical site, initial encounter documented in this encounter Care Teams Information Security Architect Relationship Specialty Start Date End Date Trinh Coates MD [address] [place] [address] PCP - General 01/11/10 documented as of this encounter
--- OUTSIDE RECORDS SUMMARY | 2023-09-25 11:50 | XMS_ITS | Encounter Summary ---
Author Organization [facility] [place] [address] Care Team Providers Care Wool Fleece Sorter Name Role Phone Trinh Coates MD Primary Care Provider [phone] Reason for Referral * Diagnostic Test (Routine) - Closed Specialty Diagnoses / Procedures Referred By Diamante marin Referred To Contact Radiology Diagnoses Malignant neoplasm of upper-outer quadrant of left breast in female, estrogen receptor positive Procedures IR Mediport Placement / Exchange Sally Ren APRN [facility] [place] [address] [place] [address] Referral ID Status Reason Start Date Expiration Date V isits Requested Visits Authorized [id number] Closed Specialty Service Requested 06/01/2017 06/01/2018 1 1 Encounter Details Date Type Department Care Team (Late st Contact Info) Description 06/01/2017 Orders Only Hematology [place] [address] Sally Ren APRN [facility] [place] [address] Malignant neoplasm of upper-outer quadrant [...] EST Appointment Mammography/[place] [phone] Ladi Mendosa MD [facility] [place] [address] 01/30/2024 11:30 AM EST Office Visit Dermatology at [address] [place] [address] Nilda Luis MD [facility] [place] [address] 02/14/2024 7:30 AM EST Appointment [place] [address] Joanna Watts MD [facility] [address] documented as of this encounter Results * [...] meets criteria. 2) Port ready for use. Deskidding Machine Operator(s): Associate Provider: Scooby Muñoz APRN. I was present during the intraservice time as documented by the IR nurse. Attending: Dr. Dey 07/03/2017 Sally Ren APRN [facility] IR ORDERABLES documented in this encounter Visit Diagnoses Diagnosis Malignant neoplasm of upper-outer quadrant of left breast in female, estrogen receptor positive documented in this encounter Care Teams Wool Fleece Sorter Relationship Specialty Start Date End Date Trinh Coates MD [address] [place] [address] PCP - General 01/11/10 documented as of this encounter
--- OUTSIDE RECORDS SUMMARY | 2023-09-25 11:50 | XMS_ITS | Encounter Summary ---
[place] [address] Care Team Providers Care Learning Disabled Teacher Name Role Phone Trinh Coates MD Primary Care Provider [phone] Encounter Details Date Type Department Care Team (Late Contact Info) Description 06/04/2017 Telephone Radiation Oncology at [address] [address] Mayda Calvert RN Social History [...] 01/22/2024 10:30 AM EST Appointment Mammography/[place] [phone] Ladi Mendosa MD [facility] [place] [address] 01/30/2024 11:30 AM EST Office Visit Dermatology at [facility] [address] [place] [phone] Nilda Luis MD [facility] [place] [address] 02/14/2024 7:30 AM EST Appointment Radiology at [place] [phone] Joanna Wtats MD [facility] [place] [address] documented as of this encounter Visit Diagnoses Not on filedocumented in this encounter Care Teams Learning Disabled Teacher Relationship Specialty Start Date End Date Trinh Coates MD [facility] [address] [place] [address] PCP - General 01/11/10 documented as of this encounter
--- OUTSIDE RECORDS SUMMARY | 2023-09-25 11:50 | XMS_ITS | Encounter Summary ---
[place] [address] Care Team Providers Care Senior Software Quality Analyst Name Role Phone Trinh Coates MD Primary Care Provider [phone] Encounter Details Date Type Department Care Team (Late st Contact Info) Description 06/01/2017 Telephone Hematology [place] [phone] Gayatri Okeefe Social History Tobacco Use Types [...] 01/22/2024 10:30 AM EST Appointment Mammography/[place] [address] Ladi Mendosa MD [facility] HEMATOLOGY [place] [address] 01/30/2024 11:30 AM EST Office Visit Dermatology at [facility] [address] [place] [phone] Nilda Luis MD [facility] [place] [address] 02/14/2024 7:30 AM EST [place] [address] Joanna Watts MD [facility] [address] documented as of this encounter Visit Diagnoses Not on filedocumented in this encounter Care Teams Senior Software Quality Analyst Relationship Specialty Start Date End Date Trinh Coates MD [address] [place] [address] PCP - General 01/11/10 documented as of this encounter
--- OUTSIDE RECORDS SUMMARY | 2023-09-25 11:50 | XMS_ITS | Encounter Summary ---
Author Organization [facility] Address [facility] [place] [address] Care Team Providers Care Thread Marker Name Role Phone Trinh Coates MD Primary Care Provider [phone] Reason for Referral * Consultation (Routine) - Closed Specialty Diagnoses / Procedures Referred By Diamante marin Referred To Contact Hematology and Oncology Diagnoses Malignant neoplasm of upper-outer quadrant of left breast in female, estrogen receptor positive Sally Ren APRN [facility] [place] [address] [facility] Hem Onc Office [address] [place] [phone] Referral ID Status Reason Start Date Expiration Date V isits Requested Visits Authorized [id number] Closed Consult, Test & Treat 05/30/2017 05/30/2018 1 1 Encounter Details Date Type Department Care Team (Late st Contact Info) Description 05/30/2017 Orders Only Hematology [place] [address] Sally Ren APRN [facility] [place] [address] Malignant neoplasm of upper-outer quadrant of left [...] 01/22/2024 10:30 AM EST Appointment Mammography/DXA at [place] [phone] Ladi Mendosa MD [facility] [place] [address] 01/30/2024 11:30 AM EST Office Visit Dermatology at [address] [address] Nilda Luis MD [facility] [place] [address] 02/14/2024 7:30 AM EST Appointment Radiology at [place] [phone] Joanna Watts MD [facility] [place] [address] Scheduled Referrals Name Type Priority Associated Diagnoses Orde r Schedule Referral to Familial Cancer Outpatient Referral Routine Malignant neoplasm of upper-outer quadrant of left breast in female, estrogen receptor positive Ordered: 05/30/2017 documented as of this encounter Visit Diagnoses Diagnosis Malignant neoplasm of upper-outer quadrant of left breast in female, estrogen receptor positive documented in this encounter Care Teams Thread Marker Relationship Specialty Start Date End Date Trinh Coates MD [facility] [address] [place] [address] PCP - General 01/11/10 documented as of this encounter
--- OUTSIDE RECORDS SUMMARY | 2023-09-25 11:50 | XMS_ITS | Encounter Summary ---
[place] [address] Care Team Providers Care Reservoir Caretaker Name Role Phone Trinh Coates MD Primary Care Provider [phone] Reason for Referral * Diagnostic Test (Routine) - Closed Specialty Diagnoses / Procedures Referred By Contrenan t Referred To Contact Radiology Diagnoses Malignant neoplasm of female breast, unspecified estrogen receptor status, unspecified laterality, unspecified site of breast Procedures IR Drain Check/Change/Remove Diana Azevedo APRN [facility] [place] [address] [place] [address] Referral ID Status Reason Start Date Expiration Date V isits Requested Visits Authorized [id number] Closed Specialty Service Requested 05/30/2017 05/30/2018 1 1 Reason for Visit * Diagnostic Test (Routine) - Closed Specialty Diagnoses / Procedures Referred By Diamante t Referred To Contact Radiology Diagnoses Malignant neoplasm of female breast, unspecified estrogen receptor status, unspecified laterality, unspecified site of breast Procedures IR Drain Check/Change/Remove Diana Azevedo APRN [facility] [place] [address] [place] [address] Referral ID Status Reason Start Date Expiration Date V isits Requested Visits Authorized [id number] Closed Specialty Service Requested 05/30/2017 05/30/2018 1 1 Encounter Details Date Type Department Care Team (Latest Contact Info) Description 06/06/2017 9:35 AM EDT - 06/06/2017 10:42 AM EDT Hospital Encounter Radiology at [facility] [place] [phone] Diana Azevedo APRN [facility] DR [place] [address] Malignant neoplasm of female breast, unspecified estrogen [...] Mcelroy RN - 06/06/2017 11:57 AM EDT [facility] Vascular and Interventional Radiology Discharge Instructions [...] is during regular office hours, please call [phone]. If it is after regular office hours, or on weekends or holidays, please call [phone] and ask to speak to the Digital Account Executive wafer fabrication operator for Interventional Radiology. You may resume your [...] of : 1965 AGE 51 y.o. Address: [address] [place] [address] (home) [phone] (work) Mobile: Telephone Information: Referring Provider: Diana [...] of left breast in female, estrogen receptor [id number], Z17.0 ??? Status post bilateral breast reconstruction Z98.890 ??? Surgery follow-up Z09 ??? Abdominal wound dehiscence T81.30XA Pertinent PSH: Past Surgical History: Procedure Laterality Date ??? BREAST BIOPSY Right 11/01 ??? SECTION x 2 ??? HAND SURGERY Right ??? PRG EMG, LARYNX N/A 11/02/2015 FACIAL NERVE MONITORING, SETUP LARYNGEAL performed by Valentina Lucas MD at [facility] MAIN OR ??? PRO BREAST RECONSTRUC W FREE FLAP Bilateral 04/26/2017 @BREAST RECONSTRUCTION W/ FREE FLAP, SUSAN (WRVU 42.58) performed by Andre Gimenez MD at [facility] [place] ??? PRO BREAST RECONSTRUC W TISS EXPANDR Bilateral 04/26/2017 BREAST RECONSTRUCTION, IMMEDIATE OR DELAYED, W/ TISSUE LEGAL FINANCIAL SPECIALIST, INCLUDING SUBSEQUENT EXPANSION (WRVU 18.5) performed by Andre Gimenez MD at [facility] MAIN OR ??? PRO EXPLORE PARATHYROID [...] AM EST Appointment Mammography/[place] [phone] Ladi Mendosa MD [facility] HEMATOLOGY [place] [address] 01/30/2024 11:30 AM EST Office Visit Dermatology at [address] [phone] Nilda Lusi MD [facility] [address] 02/14/2024 7:30 AM EST [place] [address] Joanna Watts MD [facility] [place] [address] documented as of this encounter Procedures Procedure [...] breast cancer s/p bilateral mastectomy, with tissue probation and patrol agent placement. Seen in Plastic Surgery clinic yesterday [...] of the left breast demonstrated the tissue probation and patrol agent with several folds but no discreet adjacent fluid collection. Images and exam were reviewed with Dr. Rodriguez (Breast Division) Left breast drain injection showing : The drain is patent; a portion of the contrast collects around the drain laterally; contrast also opacifies a curvilinear space surrounding the probation and patrol agent. Complications: ?None immediate; ??EBL=0 Medications: ??1% lidocaine (<10 cc); fentanyl 50 mcg Contrast: ??5 cc non-ionic/omniapque Fluoroscopy time: 1.6 minutes Findings: 1. Right breast drain removal. 2. Left breast US with no fluid collection adjacent to the probation and patrol agent observed 3. Left breast drain injection showing contrast collecting around the drain laterally as well as opacifying a curvilinear space around the probation and patrol agent. Attending: ?Rashaad Paulson MD ? I was [...] mLs documented in this encounter Care Teams Reservoir Caretaker Relationship Specialty Start Date End Date Trinh Coates MD [facility] [address] [place] [address] PCP - General 01/11/10 documented as of this encounter
--- OUTSIDE RECORDS SUMMARY | 2023-09-25 11:50 | XMS_ITS | Encounter Summary ---
Author Organization [facility] [place] [address] Care Team Providers Care Technology Services Manager Name Role Phone Trinh Coates MD Primary Care Provider [phone] Reason for Visit * Diagnostic Test (Routine) - Closed Specialty Diagnoses / Procedures Referred By Diamante marin Referred To Contact Radiology Diagnoses Status post bilateral breast reconstruction Procedures IR Drain Check/Change/Remove Andre Crowley MD [facility] [place] [address] [place] [address] Referral ID Status Reason Start Date Expiration Date V isits Requested Visits Authorized [id number] Closed Specialty Service Requested 04/30/2017 04/30/2018 1 1 Encounter Details Date Type Department Care Team (Latest Contact Info) Description 05/25/2017 10:46 AM EDT Hospital [place] [address] Andre Crowley MD [facility] [place] [address] Discharge Disposition: Home Social History Tobacco Use [...] of : 1965 AGE 51 y.o. Address: [address] [place] [address] (home) [phone] (work) Mobile: Telephone Information: Referring Provider: Andre Crowley REASON FOR VISIT: Order Questions Question Answer Comment Where will study be performed? [facility] Reason for exam and clinical history: [...] of left breast in female, estrogen receptor [id number], Z17.0 ??? Status post bilateral breast reconstruction Z98.890 ??? Surgery follow-up Z09 ??? Abdominal wound dehiscence T81.30XA Pertinent PSH: Past Surgical History: Procedure Laterality Date ??? BREAST BIOPSY Right 11/01 ??? SECTION x 2 ??? HAND SURGERY Right ??? PRG EMG, LARYNX N/A 11/02/2015 FACIAL NERVE MONITORING, SETUP LARYNGEAL performed by Valentina Lucas MD at [facility] OR ??? PRO BREAST RECONSTRUC W FREE FLAP Bilateral 04/26/2017 @BREAST RECONSTRUCTION W/ FREE FLAP, SUSAN (WRVU 42.58) performed [facility] ??? PRO BREAST RECONSTRUC W TISS EXPANDR Bilateral 04/26/2017 BREAST RECONSTRUCTION, IMMEDIATE OR DELAYED, W/ TISSUE PATTERN SCRATCHER, INCLUDING SUBSEQUENT EXPANSION (WRVU 18.5) performed by Andre Gimenez MD at [facility] OR ??? PRO EXPLORE PARATHYROID GLANDS N/A 11/02/2015 PARATHYROIDECTOMY OR EXPLORATION OF PARATHYROID(S) performed by Valentina Lucas MD at [facility] OR ? ? PRO FULL THICK GRFT TRUNK <20 SQCM Bilateral 04/26/2017 FTSG, FREE, DIR CLOSE DONOR SITE, TRUNK, 20 SQ CM OR LESS (WRVU 9.15) performed by Andre Gimenez MD at [facility] OR ??? PRO MASTECTOMY, SIMPLE, COMPLETE Bilateral 04/26/2017 MASTECTOMY, SIMPLE, COMPLETE-SUSAN (WRVU 15.85) performed by Jolie Menendez MD at [facility] OR ??? PRO PARTIAL REMOVAL OF RIB Bilateral 04/26/2017 EXCISION OF RIB, PARTIAL (WRVU 7.26) performed by Andre Gimenez MD at [facility] OR ??? PRO REMOVE ARMPITS LYMPH NODES COMPLT Left 04/26/2017 LYMPHADENECTOMY, AXILLARY, COMPLETE (WRVU 13.87) performed by Jolie Menendez MD at [facility] OR ??? PRO THYMECTOMY, TRANSCERVICAL N/A 11/02/2015 THYMECTOMY, TRANSCERVICAL APPROACH performed by Valentina Lucas MD at [facility] OR ??? SHOULDER SURGERY [...] [place] [address] Ladi Mendosa MD [facility] [place]AT[place] [address] 01/30/2024 11:30 AM EST Office Visit Dermatology at [facility] [address] [place] [address] Nilda Luis MD [facility] [place] [address] 02/14/2024 7:30 AM EST [place] [address] Joanna Watts MD [facility] [place] [address] documented as of this encounter Procedures Procedure [...] Bottle documented in this encounter Care Teams Technology Services Manager Relationship Specialty Start Date End Date Trinh Coates MD [facility] [address] [place] [address] PCP - General 01/11/10 documented as of this encounter
--- OUTSIDE RECORDS SUMMARY | 2023-09-25 11:50 | XMS_ITS | Encounter Summary ---
Author Organization [facility] [place] [address] Care Team Providers Care Warehouse Pricing And Inventory Clerk Name Role Phone Trinh Coates MD Primary Care Provider [phone] Reason for Referral * Diagnostic Test (Routine) - Closed Specialty Diagnoses / Procedures Referred By Diamante marin Referred To Contact Radiology Diagnoses Malignant neoplasm of left female breast, unspecified estrogen receptor status, unspecified site of breast Procedures IR Drain Check/Change/Remove Christy Keenan MD [facility] [place] [place] [address] [place] [address] Referral ID Status Reason Start Date Expiration Date V isits Requested Visits Authorized [id number] Closed Specialty Service Requested 05/15/2017 05/15/2018 1 1 Encounter Details Date Type Department Care Team (Late st Contact Info) Description 05/15/2017 Orders [place] [address] Christy Keenan MD [facility] [place] [address] Malignant neoplasm of left female [...] 01/22/2024 10:30 AM EST Appointment Mammography/DXA at [place] [phone] Ladi Mendosa MD [facility] HEMATOLOGY [place] [address] 01/30/2024 11:30 AM EST Office Visit Dermatology at [address] [phone] Nilda Luis MD [facility] [place] [address] 02/14/2024 7:30 AM EST Appointment [place] [address] Joanna Watts MD [facility] [place] [address] documented as of this encounter Results * [...] ??complicated by intraoperative demise followed by Tissue Morning Show Producer placement. Patient had a RIGHT breast insitu [...] injection fills a space surrounding the tissue steam pipe fitter. The drain was flushed and re-connected to [...] injection fills a space surrounding the tissue steam pipe fitter. The drain was flushed and re-connected to [...] breast documented in this encounter Care Teams Warehouse Pricing And Inventory Clerk Relationship Specialty Start Date End Date Trinh Coates MD [address] [facility] [place] [address] PCP - General 01/11/10 documented as of this encounter
--- OUTSIDE RECORDS SUMMARY | 2023-09-25 11:50 | XMS_ITS | Encounter Summary ---
Author Organization [facility] Address [facility] [place] [address] Care Team Providers Care Assistant Drafter Name Role Phone Trinh Coates MD Primary Care Provider [phone] Reason for Visit * Reason Comments Chemotherapy Teaching Encounter Details Date Type Department Care Team (Late st Contact Info) Description 06/01/2017 11:00 AM EDT Office Visit Hematology [place] [address] Sally Ren APRN [facility] [place] [address] Malignant neoplasm of upper-outer quadrant of left [...] encounter Progress Notes * Sally Ren Haylee, CINETECHNICIAN - 06/01/2017 11:00 AM EDT PATIENT ID: Wendy Sandoval is a 51 y.o. with ER+/IA+/Her2- node positive left breast cancer who presents [...] effects and management strategies. In addition the [facility] DVD was viewed. She was [...] days. - Neulasta will be arranged at [facility]. o Antiemetics were reviewed with Wendy [...] EST Appointment Mammography/[place] [address] Ladi Mendosa MD [facility] [place] [address] 01/30/2024 11:30 AM EST Office Visit Dermatology at [facility] [address] [place] [address] Nilda Luis MD [facility] [place] [address] 02/14/2024 7:30 AM EST Appointment [place] [address] Joanna Watts MD [facility] [place] [address] documented as of this encounter Visit Diagnoses Diagnosis Malignant neoplasm of upper-outer quadrant of left breast in female, estrogen receptor positive documented in this encounter Care Teams Assistant Drafter Relationship Specialty Start Date End Date Trinh Coates MD [facility] [address] [facility] 1 [place] [address] PCP - General 01/11/10 documented as of this encounter
--- OUTSIDE RECORDS SUMMARY | 2023-09-25 11:50 | XMS_ITS | Encounter Summary ---
Author Organization [facility] [place] [address] Care Team Providers Care Kiln Maintenance Name Role Phone Trinh Coates MD Primary Care Provider [phone] Reason for Referral * Diagnostic Test (Routine) - Closed Specialty Diagnoses / Procedures Referred By Diamante marin Referred To Contact Radiology Diagnoses Fluid collection at surgical site, initial encounter Procedures IR All Drainage Procedures Jarod Damico MD [facility] [place] [address] [place] [address] Referral ID Status Reason Start Date Expiration Date V isits Requested Visits Authorized [id number] Closed Specialty Service Requested 06/05/2017 06/05/2018 1 1 Reason for Visit * Reason Comments Follow-up ? left breast seroma Encounter Details Date Type Department Care Team (Latest Contact Info) Description 06/05/2017 2:00 PM EDT Clinical Support [place] [address] Fluid collection at surgical site, [...] SALVADOR flaps debrided and TE expanderbreast reconstruction ([place] Artura??600 cc expanders placed bilaterally and filled??with [...] Assessment: Possible fluid collection behind left breast cartographic technician. Plan: Per who reviewed with Dr. Damico [...] 01/22/2024 10:30 AM EST Appointment Mammography/[place] [phone] Ladi Mendosa MD [facility] [place] [address] 01/30/2024 11:30 AM EST Office Visit Dermatology at [place] [address] [place] [phone] Nilda Luis MD [facility] [place] [address] 02/14/2024 7:30 AM EST Appointment [place] [phone] Joanna Watts MD [facility] [place] [address] documented as of this encounter Results * IR All Drainage Procedures (06/06/2017 12:06 PM EDT) Anatomical Region Laterality Modality X-Ray Angiograph y Narrative 06/06/2017 1:23 PM EDT IR Procedure Note Procedure: ?1. Right breast drain removal ?2. Left breast drain injection ?3. US evaluation of the left breast History/indication: 51 y.o. female with history of left breast cancer s/p bilateral mastectomy, with tissue cartographic technician placement. Seen in Plastic Surgery clinic [...] of the left breast demonstrated the tissue cartographic technician with several folds but no discreet adjacent fluid collection. Images and exam were reviewed with Dr. Rodriguez (Breast Division) Left breast drain injection showing : The drain is patent; a portion of the contrast collects around the drain laterally; contrast also opacifies a curvilinear space surrounding the cartographic technician. Complications: ?None immediate; ??EBL=0 Medications: ??1% lidocaine (<10 cc); fentanyl 50 mcg Contrast: ??5 cc non-ionic/omniapque Fluoroscopy time: 1.6 minutes Findings: 1. Right breast drain removal. 2. Left breast US with no fluid collection adjacent to the cartographic technician observed 3. Left breast drain injection showing contrast collecting around the drain laterally as well as opacifying a curvilinear space around the cartographic technician. Attending: ?Rashaad Paulson MD ? I was present during the intraservice time as documented by the IR Nurse. Jarod Damico MD IMG IR ORDERABLES documented in this encounter Visit Diagnoses Diagnosis Fluid collection at surgical site, initial encounter- Primary Surgery follow-up Follow-up examination, following unspecified surgery Fluid collection at surgical site, initial encounter documented in this encounter Care Teams Kiln Maintenance Relationship Specialty Start Date End Date Trinh Coates MD [facility] [address] [place] [address] PCP - General 01/11/10 documented as of this encounter
--- OUTSIDE RECORDS SUMMARY | 2023-09-25 11:50 | XMS_ITS | Encounter Summary ---
Author Organization Replaced By [facility] [place] [address] Care Team Providers Care Director Of Front Office Name Role Phone Trinh Coates MD Primary Care Provider [phone] Reason for Referral * Diagnostic Test (Emergency) - Closed Specialty Diagnoses / Procedures Referred By Diamante t Referred To Contact Radiology Diagnoses Surgery follow-up Procedures CTA Chest for Pulmonary Embolus w Contrast Jolene Azevedo APRN [facility] [place] [address] [facility] [place] [address] Referral ID Status Reason Start Date Expiration Date V isits Requested Visits Authorized [id number] Closed Specialty Service Requested 05/10/2017 06/24/2017 1 1 Reason for Visit * Auth/Cert Specialty Diagnoses / Procedures Referred By Diamante t Referred To Contact Diagnoses Abdominal wound dehiscence, initial encounter INFECTION Procedures ELA IPI Referral ID Status Reason Start Date Expiration Date Visits Re quested Visits Authorized [id number] 1 1 Encounter Details Date Type Department Care Team (Latest Contact Info) Description 05/10/2017 12:21 PM EDT - 05/10/2017 3:02 PM EDT [place] [address] Jolene Azevedo APRN [facility] [place] [address] Surgery follow-up Discharge Disposition: Home Social History [...] 01/22/2024 10:30 AM EST Appointment Mammography/[place] [address] Ladi Mendosa MD [facility] DR HEMATOLOGY [place] [address] 01/30/2024 11:30 AM EST Office Visit Dermatology at [facility] [address] [place] [address] Nilda Luis MD [facility] [place] [address] 02/14/2024 7:30 AM EST Appointment Radiology at [facility] [place] [id number] Joanna Watts MD [facility] [place] [address] documented as of this encounter Procedures Procedure [...] laboratory signs of infection/inflammation. Jolene Azevedo APRN [facility] CT ORDERABLES documented in this encounter Visit Diagnoses Diagnosis Surgery follow-up Follow-up examination, following unspecified surgery documented in this encounter Administered Medications Inactive Administered Medications - up to 3 most recent administrations Medication Order MAR Action Action Date Dose Rate Site iohexol (OMNIPAQUE) 350 mg/mL solution 0-200 mL 0-200 mL, Intravenous, ONCE PRN, 1 dose, Starting on Sosa 05/10/17 at 1244, Until Sosa 18 at 1305, Per Protocol, Warning Vesicant/Irritant Medication , Radiology Contrast, Routine Given 05/10/2017 1:05 PM EDT 53 mLs documented in this encounter Care Teams Director Of Front Office Relationship Specialty Start Date End Date Trinh Coates MD [address] [place] [address] PCP - General 01/11/10 documented as of this encounter
--- OUTSIDE RECORDS SUMMARY | 2023-09-25 11:51 | XMS_ITS | Encounter Summary ---
Author Organization [facility] [place] [address] Care Team Providers Care Lance Crewmember Name Role Phone Trinh Coates MD Primary Care Provider [phone] Reason for Visit * Auth/Cert Specialty Diagnoses / Procedures Referred By iDamante marin Referred To Contact Diagnoses Left breast cancer Procedures PRO BREAST RECONSTRUC W FREE FLAP @BREAST RECONSTRUCTION W/ FREE FLAP, SUSAN (WRVU 42.58) Referral ID Status Reason Start Date Expiration Date Visits Re quested Visits Authorized [id number] 1 1 Encounter Details Date Type Department Care Team (Latest Contact Info) Description 04/26/2017 6:09 AM EST - 05/01/2017 12:20 PM EDT Hospital Encounter [address] [place] [address] Mali Lakhani MD [facility] [place] [address] Status post bilateral breast reconstruction Discharge Disposition: [...] : 51 y.o. 1965 Language, race, ethnicity: German, White, Not nor Date of Admission: 04/26/2017 [...] BREAST RECONSTRUCTION, IMMEDIATE OR DELAYED, W/ TISSUE ENTERTAINMENT DIRECTOR, INCLUDING SUBSEQUENT EXPANSION (WRVU 18.5) FTSG, FREE, DIR CLOSE DONOR SITE, TRUNK, 20 SQ CM OR LESS (WRVU 9.15) 04/26/2017 - 04/27/2017 History of Presentation: 51yo F pt with history of Er/TN+, HEr2- right breast CA. Per office note [...] 1 surgery, but her last surgeries at [facility] went very smoothly with anesthesia. She currently [...] Hospital Course: Patient was admitted electively to [facility] via the same day surgery program and [...] LARYNGEAL performed by Valentina Lucas MD at [facility] OR ??? PRO BREAST RECONSTRUC W FREE FLAP Bilateral 04/26/2017 @BREAST RECONSTRUCTION W/ FREE FLAP, SUSAN (WRVU 42.58) [facility] ??? PRO BREAST RECONSTRUC W TISS EXPANDR Bilateral 04/26/2017 BREAST RECONSTRUCTION, IMMEDIATE OR DELAYED, W/ TISSUE ENTERTAINMENT DIRECTOR, INCLUDING SUBSEQUENT EXPANSION (WRVU 18.5) performed by Mali Lakhani MD at [facility] OR ??? PRO EXPLORE PARATHYROID GLANDS N/A 11/02/2015 PARATHYROIDECTOMY OR EXPLORATION OF PARATHYROID(S) performed by Valentina Lucas MD at [facility] OR ? ? PRO FULL THICK GRFT TRUNK <20 SQCM Bilateral 04/26/2017 FTSG, FREE, DIR CLOSE DONOR SITE, TRUNK, 20 SQ CM OR LESS (WRVU 9.15) performed by Mali Lakhani MD at [facility] OR ??? PRO MASTECTOMY, SIMPLE, COMPLETE Bilateral 04/26/2017 MASTECTOMY, SIMPLE, COMPLETE-SUSAN (WRVU 15.85) performed by Ria Menendez MD at [facility] OR ??? PRO PARTIAL REMOVAL OF RIB Bilateral 04/26/2017 EXCISION OF RIB, PARTIAL (WRVU 7.26) performed by Mali Lakhani MD at [facility] MAIN OR ??? PRO REMOVE ARMPITS LYMPH NODES COMPLT Left 04/26/2017 LYMPHADENECTOMY, AXILLARY, COMPLETE (WRVU 13.87) performed by Ria Menendez MD at [facility] MAIN OR ??? PRO THYMECTOMY, TRANSCERVICAL N/A 11/02/2015 THYMECTOMY, TRANSCERVICAL APPROACH performed by Valentina Lucas MD at [facility] MAIN OR ??? SHOULDER SURGERY Left [...] BREAST RECONSTRUCTION, IMMEDIATE OR DELAYED, W/ TISSUE ENTERTAINMENT DIRECTOR, INCLUDING SUBSEQUENT EXPANSION (WRVU 18.5) FTSG, FREE, [...] Your medications were sent electronically to the [facility] pharmacy The healing process after breast [...] and only as needed. ??? Take an ivwh-wxb-zaccikd stool softener, such as Colace while taking [...] about scheduling, please contact our administrative officesat [phone] For clinical questions, please call our nurses at [phone] Both offices are open Sunday thru Sunday 8a - 5p. With emergencies after hours, call the hospital calender roll press operator at [phone] and ask for the Plastic Surgery Resident seconds inspector. Narcotics: You may be given a prescription [...] called in to our prescription line at [phone]. Narcotic renewals may be requested from 8am-4pm [...] arrival. Post-Op Plan: - Follow up with PHYSICIAN PRACTICE MARKET MANAGER/nurse - A nurse from clinic will call [...] [facility] Surg [facility] 05/14/2017 2:00 PM [facility] IR ROOM 3 IR [facility] 05/14/2017 3:30 PM Gustavo Mota MD [facility] Hem Onc [facility] 05/21/2017 8:[address] [facility] 05/21/2017 9:00 AM Emily Choi MD [facility] General Instructions INTERVENTIONAL RADIOLOGY DRAIN CARE [...] is during regular office hours, please call [phone]. If it is after regular office hours, or on weekends or holidays, please call [phone] and ask to speak to the Exerciser seconds inspector for Interventional Radiology. Revised 03/05/15 Drainage Record NAME: Date of Surgery: Date: Time: If more than one drain, which one: Drainage Amount (per drain) Total Amount (per drain; in 24 hours) Future Appointments and Orders Future Appointments Provider Department Dept Phone 05/07/2017 10:00 AM Romy Abarca PT [facility] [place] [phone] 05/14/2017 9:00 AM NURSE, PLASTIC SURGERY [facility] [place] [phone] 05/14/2017 10:00 AM Ria Menendez MD [facility] [place] [phone] 05/14/2017 2:00 PM [facility] IR ROOM 3 Radiology [facility] [place] [phone] Please expect a call from a radiology nurse within 3 days of your exam, you will need to follow theinstructions given at that time. 05/14/2017 3:30 PM Rasheeda Trent RN; Gustavo Mota MD; CBP, SOCIAL WORK Hematology and Oncology [facility] [place] [phone] 05/21/2017 8:30 AM Rad Nurse, [facility] Radiation Oncology at [facility] [phone] 05/21/2017 9:00 AM Emily Choi MD Radiation Oncology at [facility] [phone] Discharge Medications: Your Medications New Medications Dose [...] AM Romy Abarca, PT [facility] [place] [phone] 05/14/2017 9:00 AM NURSE, PLASTIC SURGERY [facility] [place] [phone] 05/14/2017 10:00 AM Ria Menendez MD General Surgery [facility] [place] [phone] 05/14/2017 2:00 PM [facility] IR ROOM 3 Radiology [facility] [place] [phone] Please expect a call from a radiology nurse within 3 days of your exam, you will need to follow theinstructions given at that time. 05/14/2017 3:30 PM Rasheeda Trent RN; Gustavo Mota MD; [facility], SOCIAL WORK Hematology and Oncology [facility] [place] [phone] 05/21/2017 8:[address] [facility] Radiation Oncology at [facility] [phone] 05/21/2017 9:00 AM Emily Choi MD Radiation Oncology at [facility] [phone] Future Appointments Date Time Provider Department Center 05/07/2017 10:00 AM Romy Abarca[facility] PT [facility] 05/14/2017 9:00 AM NURSE, PLASTIC SURGERY [facility] Plas 4M [facility] 05/14/2017 10:00 AM Ria Menendez MD [facility] Surg [facility] 05/14/2017 2:00 PM [facility] IR ROOM 3 IR [facility] Rad Clin 05/14/2017 3:30 PM Gustavo Mota MD [facility] Hem Onc [facility] 05/21/2017 8:[address] [facility] [address] [facility] 05/21/2017 9:00 AM Emily Choi MD ST [facility] Primary Care Provider: Trinh Coates MD [phone] VNA: No discharge procedures on file. General [...] is during regular office hours, please call [phone]. If it is after regular office hours, or on weekends or holidays, please call [phone] and ask to speak to the Exerciser seconds inspector for Interventional Radiology. Revised 03/05/15 Drainage Record NAME: Date of Surgery: Date: Time: If more than one drain, which one: Drainage Amount (per drain) Total Amount (per drain; in 24 hours) Your care was managed by the Plastic SurgeryTeam at [facility]. If you haveany questions or concerns, please feel free to contact us. Provider Contact Information: Plastic Surgery Clinic: [facility] (after business hours): documented in this encounter [...] is during regular office hours, please call [phone]. If it is after regular office hours, or on weekends or holidays, please call [phone] and ask to speak to the Exerciser seconds inspector for Interventional Radiology. Revised 03/05/15 Drainage Record NAME: Date of Surgery: Date: Time: If more than one drain, which one: Drainage Amount (per drain) Total Amount (per drain; in 24 hours) * Patient Instructions* Alma Castillo PA - 05/01/2017 7:35 AM EDT Implant Based Reconstruction Post-op Instructions Your medications were sent electronically to the [facility] pharmacy The healing process after breast [...] and only as needed. ??? Take an ugrq-rlt-jyonppu stool softener, such as Colace while taking [...] about scheduling, please contact our administrative officesat [phone] For clinical questions, please call our nurses at [phone] Both offices are open Sunday thru Sunday 8a - 5p. With emergencies after hours, call the hospital calender roll press operator at [phone] and ask for the Plastic Surgery Resident seconds inspector. Narcotics: You may be given a prescription [...] called in to our prescription line at [phone]. Narcotic renewals may be requested from 8am-4pm [...] arrival. Post-Op Plan: - Follow up with PHYSICIAN PRACTICE MARKET MANAGER/nurse - A nurse from clinic will call [...] [facility] Surg [facility] 05/14/2017 2:00 PM [facility] IR ROOM 3 IR [facility] Rad Clin 05/14/2017 3:30 PM Gustavo Mota MD Le[facility] Hem Onc [facility] 05/21/2017 8:[address] [facility] 05/21/2017 9:00 AM Emily Choi MD [facility] documented in this encounter Medications at [...] daily. 09/30/2015 05/25/2017 clobetasol (TEMOVATE) 0.05 % CreamIndications:Psoria sis Apply [...] flaps that failed intraoperatively and then Tissue Merchandising Representative placement with FNG. Precautions/Restrictions: (P) fall, other [...] 0 JASMYN PRICE PT, DPT 05/01/2017 Pager: [phone] Physical Therapy Inpatient Rehabilitation Department * Diana Azevedo, FLOORWORKER LASTING - 05/01/2017 6:30 AM EDT Images from [...] by intraoperative tissue demise followed by tissue lens blocker placement. ?? Patient has a RIGHT breast [...] ??complicated by intraoperative demise followed by Tissue Merchandising Representative placement. Past Medical History: Diagnosis Date ??? [...] Contact Information Primary Emergency Contact: Phillip Sandoval [facility] Mobile Relation: Spouse Behavioral Health History: No-per chart review Substance Use/Abuse: chart review -none listed Other Pertinent/Service Specific Information: None Health/Prescription Coverage: Primary Insurance: Payor: MVP / Plan: MVP NON REFERRAL / Product Type: *No Product type* / Secondary Insurance: Prescription Coverage: see above Preferred Pharmacy: [phone] [address] [place], [place] - [address] [facility] [address] [facility] [address] [facility] [address] Other: None Primary Care Provider: Trinh Coates MD [phone] Patient/Caregiver Goals of Treatment: Safe discharge Potential [...] of care planning. IRA ARTIS RN Pager: [phone] * Shannan Galan RN - 04/30/2017 11:02 [...] from home with assist. Please page this senior medical writer if you have any questions, thank you. Jasmyn Price, PT Pager #[phone] Physical Therapy Inpatient Rehabilitation * Chau Lei - 04/30/2017 8:40 AM EDT Brand Specialist Encounter Note Patient Name: Wendy Sandoval : [id number] MR#: [id number] Admit Date: 04/26/2017 6:09 AM Hospital Day 4 days Narrative: Visited to assess need for loan coordinator services Assessment: Patent stated that she was fine and didn't need to see a locomotive supervisor Intervention and Outcome: None Follow-up: Brand Specialist services remain available Time in Direct Care: 2 minutes Chau Lei 04/30/2017 * Shannan Galan RN - 04/30/2017 8:39 AM EDT [facility] NURSING DATABASE Name: WENDY SANDOVAL Date of : 1965 AGE 51 y.o. Address: [address] [place] [id number] (home) [phone] (work) Mobile: Telephone Information: Referring Provider: Ria Menendez REASON FOR VISIT: Laterality Right Reason for exam and clinical history: s/p breast reconstruction with bilateral tissue expanders, high drain output, RIGHT breast drain dislodged partially dislodged (still in place), need to replace to prevent fluid accumulation around lens blocker Exam/Procedure requested: drain repalcement Is the patient [...] complicated by intraoperative demise followed by Tissue Merchandising Representative placement. ?? Patient has a RIGHT breast insitu with large volume output. The drain has become partially dislodged. ?? Assessment: 51 y.o. female with breast CA to the left. Pt underwent bilateral breast reconstructionafter mastectomy with SALVADOR flaps (04/26/17); complicated by intraoperative demise followed by Tissue Merchandising Representative placement. ?? Patient has a RIGHT breast [...] of left breast in female, estrogen receptor fcomcmggT73.412, Z17.0 ??? Status post bilateral breast reconstruction Z98.890 Pertinent PSH: Past Surgical History: Procedure Laterality Date ??? BREAST BIOPSY Right 11/01 ??? SECTION x 2 ??? HAND SURGERY Right ??? PRG EMG, LARYNX N/A 11/02/2015 FACIAL NERVE MONITORING, SETUP LARYNGEAL performed by Valentina Lucas MD at [facility] MAIN OR ??? PRO BREAST RECONSTRUC W FREE FLAP Bilateral 04/26/2017 @BREAST RECONSTRUCTION W/ FREE FLAP, SUSAN (WRVU 42.58) performed by Mali Lakhani MD at [facility] ??? PRO BREAST RECONSTRUC W TISS EXPANDR Bilateral 04/26/2017 BREAST RECONSTRUCTION, IMMEDIATE OR DELAYED, W/ TISSUE ENTERTAINMENT DIRECTOR, INCLUDING SUBSEQUENT EXPANSION (WRVU 18.5) performed by Mali Lakhani MD at [facility] MAIN OR ??? PRO EXPLORE PARATHYROID GLANDS N/A 11/02/2015 PARATHYROIDECTOMY OR EXPLORATION OF PARATHYROID(S) performed by Valentina Lucas MD at [facility] OR ? ? PRO FULL THICK GRFT TRUNK <20 SQCM Bilateral 04/26/2017 FTSG, FREE, DIR CLOSE DONOR SITE, TRUNK, 20 SQ CM OR LESS (WRVU 9.15) performed by Mali Lakhani MD at [facility] OR ??? PRO MASTECTOMY, SIMPLE, COMPLETE Bilateral 04/26/2017 MASTECTOMY, SIMPLE, COMPLETE-SUSAN (WRVU 15.85) performed by Ria Menendez MD at [facility] OR ??? PRO PARTIAL REMOVAL OF RIB Bilateral 04/26/2017 EXCISION OF RIB, PARTIAL (WRVU 7.26) performed by Mali Lakhani MD at [facility] OR ??? PRO REMOVE ARMPITS LYMPH NODES COMPLT Left 04/26/2017 LYMPHADENECTOMY, AXILLARY, COMPLETE (WRVU 13.87) performed by Ria Menendez MD at [facility] OR ??? PRO THYMECTOMY, TRANSCERVICAL N/A 11/02/2015 THYMECTOMY, TRANSCERVICAL APPROACH performed by Valentina Lucas MD at [facility] OR ??? SHOULDER SURGERY Left ??? [...] PROGRESS NOTE Attending: MALI LAKHANI Patient Location: [address] [place] [address] Hospital Admission Date: 04/26/2017 ID: Wendy Sandoval is a 51 y.o. female patient with hx of JACQUELYN on CPAP, HTN, hyperlipidemia, and breast CA to the left. Pt underwent bilateral breast reconstruction after mastectomy with SALVADOR flapscomplicated by intraoperative demise followed by Tissue Merchandising Representative placement with FNG. POD5 S/IE: No acute [...] dilaudid for pain. Regular diet, NPO at [place] for procedure Ambulation as tolerated Pt will need VNA upon discharge Discharge planning for Sunday pending pt condition Future Appointments Date Time Provider Department Center 04/30/2017 9:00 AM [facility] PENDING IR IR [facility] 05/07/2017 10:00 AM Romy Abarca, PT PT Rehab [facility] 05/14/2017 9:00 AM NURSE, PLASTIC SURGERY [facility] Pl[facility] 4 [facility] 05/14/2017 10:00 AM Ria Menendze MD [facility] Surg [facility] 05/14/2017 3:30 PM Gustavo Mota MD [facility] Hem Onc [facility] 05/21/2017 8:[address] [facility] 05/21/2017 9:00 AM Emily Choi MD [facility] Alma Castillo PA-C Plastic Surgery Pager [phone] * Diana Azevedo, FLOORWORKER LASTING - 04/30/2017 8:16 AM EDT INTERVENTIONAL RADIOLOGY [...] complicated by intraoperative demise followed by Tissue Merchandising Representative placement. Patient has a RIGHT breast insitu with large volume output. The drain has become partially dislodged. Past Medical/Surgical History: Patient Active Problem List Diagnosis Code ??? Hypertension I10 ??? Depression F32.9 ??? Obstructive sleep apnea (adult) (pediatric) G47.33 ??? OA (osteoarthritis) M19.90 ??? Overweight(278.02) E66.3 ??? Hyperparathyroidism E21.3 ??? Malignant neoplasm of upper-outer quadrant of left breast in female, estrogen receptor xzkyqmhjU20.412, Z17.0 ??? Status post bilateral breast reconstruction [...] performed by Valentina Lucas MD at [facility] MA[facility] OR ??? PRO BREAST RECONSTRUC W FREE FLAP Bilateral 04/26/2017 @BREAST RECONSTRUCTION W/ FREE FLAP, SUSAN (WRVU 42.58) performed by Mali Lakhani MD at [facility] ??? PRO BREAST RECONSTRUC W TISS EXPANDR Bilateral 04/26/2017 BREAST RECONSTRUCTION, IMMEDIATE OR DELAYED, W/ TISSUE ENTERTAINMENT DIRECTOR, INCLUDING SUBSEQUENT EXPANSION (WRVU 18.5) performed by Mali Lakhani MD at [facility] OR ??? PRO EXPLORE PARATHYROID GLANDS N/A 11/02/2015 PARATHYROIDECTOMY OR EXPLORATION OF PARATHYROID(S) performed by Valentina Lucas MD at [facility] OR ? ? PRO FULL THICK GRFT TRUNK <20 SQCM Bilateral 04/26/2017 FTSG, FREE, DIR CLOSE DONOR SITE, TRUNK, 20 SQ CM OR LESS (WRVU 9.15) performed by Mali Lakhani MD at [facility] OR ??? PRO MASTECTOMY, SIMPLE, COMPLETE Bilateral 04/26/2017 MASTECTOMY, SIMPLE, COMPLETE-SUSAN (WRVU 15.85) performed by Ria Menendez MD at [facility] OR ??? PRO PARTIAL REMOVAL OF RIB Bilateral 04/26/2017 EXCISION OF RIB, PARTIAL (WRVU 7.26) performed by Mali Lakhani MD at [facility] OR ??? PRO REMOVE ARMPITS LYMPH NODES COMPLT Left 04/26/2017 LYMPHADENECTOMY, AXILLARY, COMPLETE (WRVU 13.87) performed by Ria Menendez MD at [facility] OR ??? PRO THYMECTOMY, TRANSCERVICAL N/A 11/02/2015 THYMECTOMY, TRANSCERVICAL APPROACH performed by Valentina Lucas MD at [facility] OR ??? SHOULDER SURGERY Left ??? [...] complicated by intraoperative demise followed by Tissue Merchandising Representative placement. Patient has a RIGHT breast insitu [...] PROGRESS NOTE Attending: MALI LAKHANI Patient Location: [address] [place] [address] Hospital Admission Date: 04/26/2017 ID: Wendy Sandoval is a 51 y.o. female patient with hx of JACQUELYN on CPAP, HTN, hyperlipidemia, and breast CA to the left. Pt underwent bilateral breast reconstruction after mastectomy with SALVADOR flapscomplicated by intraoperative demise followed by Tissue Merchandising Representative placement with FNG. POD3 S/IE: No acute [...] no acute distress, pleasant, cooperative, resting comfortably, SEARCH PLANNER at bedside performing sponge bath HEENT: atraumatic, [...] dilaudid for pain. Regular diet, NPO at HI for procedure Ambulation as tolerated Pt will need VNA upon discharge Future Appointments Date Time Provider Department Center 05/07/2017 10:00 AM Romy Abarca, PT PT Rehab [facility] 05/14/2017 9:00 AM NURSE, PLASTIC SURGERY [facility] 05/14/2017 10:00 AM Ria Menendez MD [facility] Surg [facility] 05/14/2017 3:30 PM Gustavo Mota MD [facility] Hem Onc [facility] 05/21/2017 8:[address] [facility] 05/21/2017 9:00 AM Emily Choi MD [facility] Yo Krueger MD Plastic Surgery, PGY-4 [id number] * Yo Krueger MD - 04/28/2017 11:07 AM EST PLASTIC SURGERY INPATIENT PROGRESS NOTE Attending: MALI LAKHANI Patient Location: [address] [place] [address] Hospital Admission Date: 04/26/2017 ID: Wendy Sandoval is a 51 y.o. female patient with hx of JACQEULYN on CPAP, HTN, hyperlipidemia, and breast CA to the left. Pt underwent bilateral breast reconstruction after mastectomy with SALVADOR flapscomplicated by intraoperative demise followed by Tissue Merchandising Representative placement with FNG. POD2. S/IE: No acute [...] AM NURSE, PLASTIC SURGERY [facility] 4[facility] 05/14/2017 10:00 AM Ria Menendez MD [facility] Surg [facility] 05/14/2017 3:30 PM Gustavo Mota MD [facility] Hem Onc [facility] 05/21/2017 8:30 AM Rad Nurse, ST [facility] 05/21/2017 9:00 AM Emily Choi MD [facility] Yo Krueger MD Plastic Surgery, PGY-4 [...] PROGRESS NOTE Attending: MALI LAKHANI Patient Location: [address] Hospital Admission Date: 04/26/2017 ID: Wendy Sandoval is a 51 y.o. female patient with hx of JACQUELYN on CPAP, HTN, hyperlipidemia, and breast CA to the left. Pt underwent bilateral breast reconstruction after mastectomy with SALVADOR flapsthat failed intraoperatively and then Tissue Merchandising Representative placement with FNG. POD1. S: No acute [...] 10:00 AM Romy Abarca, PT PT Rehab [facility] 05/14/2017 9:00 AM NURSE, [facility]LASTIC [facility]ERY [facility] 05/14/2017 10:00 AM Ria Menendez MD [facility] S[facility] 05/14/2017 3:30 PM Gustavo Mota MD [facility] Hem Onc [facility] 05/21/2017 8:[address] [facility] 05/21/2017 9:00 AM Emily Choi MD [facility] Alma Castillo PA-C Plastic Surgery Pager [phone] * Lucina Pedersen MD - 04/27/2017 3:09 AM EST Post-Operative Check Wendy Sandoval is a 51 y.o. female s/p Procedure(s): @BREAST RECONSTRUCTION W/ FREE FLAP, SUSAN (WRVU 42.58) EXCISION OF RIB, PARTIAL (WRVU 7.26) MASTECTOMY, SIMPLE, COMPLETE-SUSAN (WRVU 15.85) MODIFIER , NIPPLE SPARING LYMPHADENECTOMY, AXILLARY, COMPLETE (WRVU 13.87) BREAST RECONSTRUCTION, IMMEDIATE OR DELAYED, W/ TISSUE ENTERTAINMENT DIRECTOR, INCLUDING SUBSEQUENT EXPANSION (WRVU 18.5) FTSG, FREE, [...] Pt resting intermittently. 0700- Spoke with plastics internal auditor seconds inspector regaurding pts pain 6/10 and getting worse. All pain medications utilized at this time. Per internal auditor fine to give another 5mg now since [...] performed by Valentina Lucas MD at [facility] MA[facility] OR ??? PRO EXPLORE PARATHYROID GLANDS N/A 11/02/2015 PARATHYROIDECTOMY OR EXPLORATION OF PARATHYROID(S) performed by Valentina Lucas MD at [facility] MAIN OR ??? PRO THYMECTOMY, TRANSCERVICAL N/A 11/02/2015 THYMECTOMY, TRANSCERVICAL APPROACH performed by Valentina Lucas MD at [facility] MA[facility] OR ??? SHOULDER SURGERY Left [...] AXILLARY, COMPLETE (WRVU 13.87) Opioid PDMP 04/05/2017 [place] PDMP Query Date 04/26/2017 [place] PDMP QUERY DATE: 04/26/17 Risk Assessment Category: [...] 05/14/2017 9:00 AM NURSE, PLASTIC SURGERY [facility] [address] Kaveh Whiteside MD Plastic Surgery Resident, [...] The right breast was normal. Biopsy revealed stronglyER/TN+, HER2- IDC. MRI was then obtained for [...] complicated by intraoperative demise followed by Tissue Merchandising Representative placement. ??Patient has a RIGHT breast insitu [...] showed a space circumferentially around the tissue lens blocker. A 10Fr catheter was placed over the [...] Lakhani MD - 04/30/2017 5:18 PM EDT [facility] Operative Note Patient Name: Wendy Sandoval : [id number] MR#: [id number] Case Date: 04/26/2017 - 04/27/2017 Surgeon: Surgeon(s) [...] BREAST RECONSTRUCTION, IMMEDIATE OR DELAYED, W/ TISSUE ENTERTAINMENT DIRECTOR, INCLUDING SUBSEQUENT EXPANSION (WRVU 18.5) (Bilateral) FTSG, FREE, DIR CLOSE DONOR SITE, TRUNK, 20 SQ CM OR LESS (WRVU 9.15) (Bilateral) Anesthesia: General Estimated Blood Loss: 80 mL Implant Name Type Inv. Item Serial No. Alum Mixer Lot No. LRB No. Used Action METALLURGICAL ENGINEERING TECHNICIAN,GOLD,3.0MM ([id number]) - [id number] IMPLANTS METALLURGICAL ENGINEERING TECHNICIAN,GOLD,3.0MM ([id number]) [employer] - - [id number] Left 1 Implanted and Explanted METALLURGICAL ENGINEERING TECHNICIAN,GOLD,3.0MM ([id number]) - [id number] IMPLANTS METALLURGICAL ENGINEERING TECHNICIAN,GOLD,3.0MM ([id number]) [employer] - - [id number] Left 1 Implanted and Explanted METALLURGICAL ENGINEERING TECHNICIAN,GOLD,3.0MM ([id number]) - [id number] IMPLANTS METALLURGICAL ENGINEERING TECHNICIAN,GOLD,3.0MM ([id number]) [employer] - - [id number] Right 1 Implanted and Explanted EXPAND,TISS,ARTOURA,600CC ([id number]) (AUTOREQ) - [id number] IMPLANTS EXPAND,TISS,ARTOURA,600CC ([id number]) (AUTOREQ) [id number] [employer] - [id number] Right 1 Implanted EXPAND,TISS,ARTOURA,600CC ([id number]) (AUTOREQ) - [id number] IMPLANTS EXPAND,TISS,ARTOURA,600CC ([id number]) (AUTOREQ) [id number] [employer] - [id number] Left 1 Implanted Specimens removed during surgery: Order Name Source Comment Collection Info Order Time SPECIMEN TO PATHOLOGY Short Stitch=Superior, Long Stitch=Lateral, Single Stitch=Base of Nipple. 70181 Left Breast Cancer Left Breast Yes Excision 04/26/2017 10:52 AM Time removed from patient: 10:50 AM SPECIMEN TO PATHOLOGY 27037 Left Breast Cancer Left Axillary Dissection Yes [...] performed a coupled anastomoses with 3 mm radiographer between the superficial inferior epigastric vein andthe [...] anastomosis with a 3 mm synovis micro radiographer between the superficial inferior epigastric vein and [...] cc of methylene blue impregnated saline. The lens blocker tabs were sewn to the pectoralis muscle [...] our donor defect inthe abdomen over #19 [place] Juliano drains. Closure was performed in multiple [...] flaps that failed intraoperatively and then Tissue Merchandising Representative placement with FNG. Pt reported that her [...] assist for gait. Cosme Coleman, PT Pager: [phone] Inpatient Physical Therapy 04/29/17 1155 Rehab Evaluation [...] flaps that failed intraoperatively and then Tissue Merchandising Representative placement with FNG. Precautions/Restrictions fall;other (see comments) [...] Assessment/Treatment (Group);Transfer Assessment/Treatment (Group) Bed Mobility Assessment/Treatment Hguhmu-wl-Pwi [place] (Bed Mobility) minimum assist (75% patient effort) Ntq-dh-Qsgbpn [place] (Bed Mobility) minimum assist (75% patient effort) Impairments (Bed Mobility) pain Comment (Bed Mobility) Slow transition Transfer Assessment/Treatment [place] (Sit-Stand Transfers) contact guard assist [place] (Stand-Sit Transfers) contact guard assist Nir-Upmbo-Isq Assistive Device (Transfers) rolling walker [place] (Toilet Transfers) (SBA) Assistive Device (Toilet Transfers) grab bar;rolling walker Impairments (Transfers) pain;strength decreased Comment (Transfers) Pt had difficulty with transition secondary to pain. Gait Assessment/Treatment [place] (Gait) (SBA) Assistive Device (Gait) rolling walker Distance in Feet (Gait) 10ft x 2 Gait Pattern Analysis swing-through gait Deviations (Gait) radha decreased;step length decreased Impairments (Gait) pain Comment (Gait) Pt limited by pain but steady with walking Stairs Assessment/Treatment Number of Stairs (Stairs) 1 Handrail Location (Stairs) none [place] (Stairs) moderate assist (50% patient effort) Impairments (Stairs) pain;strength decreased Comment (Stairs) Hand hold assist. Pt reports it felt like her back was going to give out but that her pain was tolerable. Motor Skills/Interventions Additional Documentation Balance Skills Training (Group) Balance Skills Training Sitting Balance: Static good balance Sitting Balance: Dynamic good balance Xyz-nr-Hywle Balance fair balance Standing Balance: Static fair [...] to sit/sit to supine Bed Mobility Goal, [place] Level independent Bed Mobility Goal, Date Goal Reviewed 04/29/17 Bed Mobility Goal, Outcome Achieved goal ongoing Gait Training Goal Gait Training Goal, Date Established 04/28/17 Gait Training Goal, Time to Achieve by discharge Gait Training Goal, [place] Level independent Gait Training Goal, Assist Device walker, rolling Gait Training Goal, Distance to Achieve 100ft Gait Training Goal, Additional Goal Ascend/descent 2 steps Gait Training Goal, Date Goal Reviewed 04/29/17 Gait Training Goal, Outcome goal ongoing Transfer Training Goal Transfer Training Goal, Date Established 04/28/17 Transfer Training Goal, Time to Achieve by discharge Transfer Training Goal, Activity Type hzn-ph-cxzau/ocsri-xs-eqj;ksg-sk-zrjui/vmozj-lr-lpt Transfer Train Goal, [place] Level independent Transfer Training Goal, Assist Device [...] Appropriate) 04/28/17 1523 Skin Integrity Impairment, Risk/Actual (Infant) Skin Integrity [...] flaps that failed intraoperatively and then Tissue Merchandising Representative placement with FNG. Precautions/Restrictions: fall, other (see [...] assist with gait Cosme Coleman, PT Pager: [phone] Inpatient Physical Therapy 04/28/17 1105 Rehab Evaluation [...] flaps that failed intraoperatively and then Tissue Merchandising Representative placement with FNG. Precautions/Restrictions fall;other (see comments) [...] Assessment/Treatment (Group);Transfer Assessment/Treatment (Group) Bed Mobility Assessment/Treatment Jruuon-kt-Qyc [place] (Bed Mobility) minimum assist (75% patient effort) Wjb-qk-Enmtch [place] (Bed Mobility) minimum assist (75% patient effort) Impairments (Bed Mobility) pain;strength decreased Comment (Bed Mobility) Slow transitions Transfer Assessment/Treatment [place] (Sit-Stand Transfers) contact guard assist [place] (Stand-Sit Transfers) contact guard assist Rbs-Svert-Qsk Assistive Device (Transfers) rolling walker [place] (Toilet Transfers) (SBA) Assistive Device (Toilet Transfers) grab bar;rolling walker Impairments (Transfers) pain;strength decreased Comment (Transfers) Pt limited by pain. Gait Assessment/Treatment [place] (Gait) (SBA) Assistive Device (Gait) rolling walker [...] good balance Sitting Balance: Dynamic good balance Maa-jh-Eoqoc Balance fair balance Standing Balance: Static fair [...] to sit/sit to supine Bed Mobility Goal, [place] Level independent Gait Training Goal Gait Training Goal, Date Established 04/28/17 Gait Training Goal, Time to Achieve by discharge Gait Training Goal, [place] Level independent Gait Training Goal, Assist Device walker, rolling Gait Training Goal, Distance to Achieve 100ft Gait Training Goal, Additional Goal Ascend/descent 2 steps Transfer Training Goal Transfer Training Goal, Date Established 04/28/17 Transfer Training Goal, Time to Achieve by discharge Transfer Training Goal, Activity Type szx-nv-muuum/wrhve-pn-zwk;trx-wv-xoohr/halfa-nu-ksb Transfer Train Goal, [place] Level independent Transfer Training Goal, Assist Device [...] promoted;ambulation promoted Pain Management Interventions analgesic trial initiated;ajcrfm-zzc-hhxge dosing utilized;pain management plan reviewed with patient/caregiver Safety Interventions Medication Review/Management medications reviewed Intervention: Mutually Develop/Implement Acute Pain Management Plan 04/27/171822 Manage Acute Burn Pain Pain Management Interventions analgesic trial initiated;bizpsx-xas-jbdxd dosing utilized;pain management plan reviewed with patient/caregiver [...] toward outcome Problem: Skin Integrity Impairment, Risk/Actual (Infant) Goal: Identify Related Risk Factors and Signs [...] 04/27/17 1823 Skin Integrity Impairment, Risk/Actual () Skin Integrity [...] agreement. Treviño pulled at 1700, DTV between [phone]. PLAN MOVING FORWARD: Continue to medicate for [...] flaps that failed intraoperatively and then Tissue Merchandising Representative placement with FNG. Past Medical History: Diagnosis [...] LARYNGEAL performed by Valentina Lucas MD at [facility] OR ??? PRO BREAST RECONSTRUC W FREE FLAP Bilateral 04/26/2017 @BREAST RECONSTRUCTION W/ FREE FLAP, SUSAN (WRVU 42.58) [facility] ??? PRO BREAST RECONSTRUC W TISS EXPANDR Bilateral 04/26/2017 BREAST RECONSTRUCTION, IMMEDIATE OR DELAYED, W/ TISSUE ENTERTAINMENT DIRECTOR, INCLUDING SUBSEQUENT EXPANSION (WRVU 18.5) performed by Mali Lakhani MD at [facility] OR ??? PRO EXPLORE PARATHYROID GLANDS N/A 11/02/2015 PARATHYROIDECTOMY OR EXPLORATION OF PARATHYROID(S) performed by Valentina Lucas MD at [facility] OR ? ? PRO FULL THICK GRFT TRUNK <20 SQCM Bilateral 04/26/2017 FTSG, FREE, DIR CLOSE DONOR SITE, TRUNK, 20 SQ CM OR LESS (WRVU 9.15) performed by Mali Lakhani MD at [facility] OR ??? PRO MASTECTOMY, SIMPLE, COMPLETE Bilateral 04/26/2017 MASTECTOMY, SIMPLE, COMPLETE-SUSAN (WRVU 15.85) performed by Ria Menendez MD at [facility] OR ??? PRO PARTIAL REMOVAL OF RIB Bilateral 04/26/2017 EXCISION OF RIB, PARTIAL (WRVU 7.26) performed by Mali Lakhani MD at [facility] OR ??? PRO REMOVE ARMPITS LYMPH NODES COMPLT Left 04/26/2017 LYMPHADENECTOMY, AXILLARY, COMPLETE (WRVU 13.87) performed by Ria Menendez MD at [facility] OR ??? PRO THYMECTOMY, TRANSCERVICAL N/A 11/02/2015 THYMECTOMY, TRANSCERVICAL APPROACH performed by Valentina Lucas MD at [facility] OR ??? SHOULDER SURGERY Left ??? [...] flaps that failed intraoperatively and then Tissue Merchandising Representative placement with FNG. Precautions Comments Full code; [...] (Bed Mobility) bed rails;draw sheet (HOB raised) Wbhjsb-rg-Mvr [place] (Bed Mobility) minimum assist (75% patient effort);verbal cues required Dbn-fu-Rezpnj [place] (Bed Mobility) moderate assist (50% patient effort);verbal cues required Safety Issues (Bed Mobility) impaired trunk control for bed mobility Impairments (Bed Mobility) pain;balance impaired;strength decreased;ROM (range of motion) decreased (functional endurance limited post op ) Comment (Bed Mobility) performed with increased time Transfer Assessment/Treatment [place] (Sit-Stand Transfers) minimum assist (75% patient effort);2 person assist required [place] (Stand-Sit Transfers) minimum assist (75% patient effort);2 person assist required Cyv-Niywm-Fbg Assistive Device (Transfers) ((B) Hand hold support) Impairments (Transfers) pain;balance impaired;strength decreased;ROM (range of motion) decreased (functional endurance limited post op) Comment (Transfers) performed with increased time; Performed marching at EOB x1 min, unable to progress gait 2/2 pain however anticipate with rehearsal would demonstrate improved tolerance. Gait Assessment/Treatment [place] (Gait) not appropriate to assess (limited by [...] of left breast in female, estrogen receptor erpahzjbP44.412, Z17.0 ??? Status post bilateral breast reconstruction [...] this evaluation. JASMYN PRICE PT, DPT Pager: [phone] Inpatient Physical Therapy * Op Note - Alyx Estrella MD - 04/27/2017 1:58 PM EST [facility] Operative Note Patient Name: Wendy Sandoval : [id number] MR#: [id number] Case Date: 04/26/2017 - 04/27/2017 Surgeon: Surgeon(s) [...] BREAST RECONSTRUCTION, IMMEDIATE OR DELAYED, W/ TISSUE ENTERTAINMENT DIRECTOR, INCLUDING SUBSEQUENT EXPANSION (WRVU 18.5) (Bilateral) FTSG, [...] size. This was then reinforced with 2 aqmwef-yy-azfogkwjlytt also in 4-0 PDS. The leak, although [...] Oliverio Machado - 04/27/2017 3:00 AM EST [facility] Department of Thoracic Surgery Inpatient Consultation Note [place], [place] [address] FAX: Patient Name: Wendy Sandoval Patient : 1965 Patient Patient Location: [address] This consultation request was made by: MALI LAKHANI Consulting thoracic surgery attending: Alyx Estrella MD HPI: Wendy Sandoval is a 51 y.o. 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 She presented to [facility] on 04/26/2017 for a scheduled bilateral mastectomy [...] of left breast in female, estrogen receptor zddkpcpy97/10/2018 ??? Hyperparathyroidism 11/02/2015 ??? Obstructive sleep apnea [...] performed by Valentina Lucas MD at [facility] OR ??? PRO EXPLORE PARATHYROID GLANDS N/A 11/02/2015 PARATHYROIDECTOMY OR EXPLORATION OF PARATHYROID(S) performed by Valentina Lucas MD at [facility] OR ??? PRO THYMECTOMY, TRANSCERVICAL N/A 11/02/2015 THYMECTOMY, TRANSCERVICAL APPROACH performed by Valentina Lucas MD at [facility] OR ??? SHOULDER SURGERY Left [...] Admission (Current) from 04/26/2017 in PACU at [facility] Office Visit from 04/05/2017 in Plastic Surgery at [place] Weight 76.7 kg (169 lb) 1 04/26/2017 [...] 51 y.o. female with PMHx significant for ER/TN+ HER2- invasive ductal carcinoma s/p bilateral mastectomy [...] Stratton MD 04/27/2017 Thoracic Surgery Service Pager [phone] Associated attestation - Alyx Estrella MD - [...] Whiteside MD - 04/27/2017 12:27 AM EST [facility] Brief Operative Note Patient Name: Wendy Sandoval : 1965 MR#: [id number] Case Date: 04/26/2017 Surgeon: Surgeon(s) and Role: MD Ammy - Primary MD Stevo Preoperative diagnosis: Left breast cancer Postoperative diagnosis: Left breast cancer Procedure(s): @BREAST RECONSTRUCTION W/ FREE FLAP, SUSAN (WRVU 42.58) EXCISION OF RIB, PARTIAL (WRVU 7.26) BREAST RECONSTRUCTION, IMMEDIATE OR DELAYED, W/ TISSUE ENTERTAINMENT DIRECTOR, INCLUDING SUBSEQUENT EXPANSION (WRVU 18.5) FTSG, FREE, DIR CLOSE DONOR SITE, TRUNK, 20 SQ CM OR LESS (WRVU 9.15) Anesthesia: gen Estimated Blood Loss: 100cc Specimens removed during surgery: see Dr Menendez's portion of case Drains: 19F x 2 abdomen, 15F b/l breast Surgical Closure: prolene Implant(s): Implant Name Type Inv. Item Serial No. Alum Mixer Lot No. LRB No. Used Action METALLURGICAL ENGINEERING TECHNICIAN,GOLD,3.0MM ([id number]) - [id number] IMPLANTS METALLURGICAL ENGINEERING TECHNICIAN,GOLD,3.0MM ([id number]) [employer] - - [id number] Left 1 Implanted and Explanted METALLURGICAL ENGINEERING TECHNICIAN,GOLD,3.0MM ([id number]) - [id number] IMPLANTS METALLURGICAL ENGINEERING TECHNICIAN,GOLD,3.0MM ([id number]) [employer] - - [id number] Left 1 Implanted and Explanted METALLURGICAL ENGINEERING TECHNICIAN,GOLD,3.0MM ([id number]) - [id number] IMPLANTS METALLURGICAL ENGINEERING TECHNICIAN,GOLD,3.0MM ([id number]) [employer] - - [id number] Right 1 Implanted and Explanted EXPAND,TISS,ARTOURA,600CC ([id number]) (AUTOREQ) - [id number] IMPLANTS EXPAND,TISS,ARTOURA,600CC ([id number]) (AUTOREQ) [id number] [id number] Right 1 Implanted EXPAND,TISS,ARTOURA,600CC ([id number]) (AUTOREQ) - [id number] IMPLANTS EXPAND,TISS,ARTOURA,600CC ([id number]) (AUTOREQ) [id number] [facility] [id number] Left 1 Implanted Disposition: awakened from anesthesia, [...] 10:00 AM Romy Abarca, PT PT Rehab [facility] 05/14/2017 9:00 AM NURSE, PLASTIC SURGERY [facility] [address] [place] [address] 05/14/2017 10:00 AM Ria Menendez MD Leb Surg [facility] 05/14/2017 3:30 PM Gustavo Mota MD Leb Hem Onc [facility] 05/21/2017 8:[address] Quan Mckeon [facility] 05/21/2017 9:00 AM Emily Choi MD [facility] Kaveh Whiteside MD Plastic Surgery, PGY-7 * Op Note - iRa Menendez MD - 04/26/2017 1:02 PM EST [facility] Operative Note Patient Name: Wendy Sandoval : [id number] MR#: [id number] Case Date: 04/26/2017 Surgeon: Surgeon(s) and Role: [...] Stitch=Superior, Long Stitch=Lateral, Single Stitch=Base of Nipple. 10350 Left Breast Cancer Left Breast Yes Excision 04/26/2017 10:52 AM Time removed from patient: 10:50 AM SPECIMEN TO PATHOLOGY 72285 Left Breast Cancer Left Axillary Dissection Yes [...] 01/22/2024 10:30 AM EST Appointment Mammography/[place] [address] Ladi Mendosa MD [facility] [place] [address] 01/30/2024 11:30 AM EST Office Visit Dermatology at [place] [address] [place] [address] Nilda Luis MD [facility] [place] [address] 02/14/2024 7:30 AM EST Appointment Radiology at [facility] [place] [address] Joanna Watts MD [facility] [place] [address] documented as of this encounter Procedures Procedure Name Priority Date/Time Associated Diagnosis Comments IMPLANTABLE DEVICES SCAN 05/02/2017 12:00 AM EDT HEMOGRAM Routine 05/01/2017 3:39 AM EDT DIFFERENTIAL, AUTOMATED Routine 05/01/2017 3:39 AM EDT CBC (WITH DIFF) Routine 05/01/2017 3:39 AM EDT MAGNESIUM Routine 05/01/2017 3:39 AM EDT BASIC METABOLIC PANEL Routine 05/01/2017 3:39 AM EDT IR BREAST DRAIN PLACEMENT Routine 04/30/2017 11:18 AM EDT HEMOGRAM Routine 04/30/2017 3:27 AM EDT DIFFERENTIAL, AUTOMATED Routine 04/30/2017 3:27 AM EDT CBC (WITH DIFF) Routine 04/30/2017 3:27 AM EDT MAGNESIUM Routine 04/30/2017 3:27 AM EDT BASIC METABOLIC PANEL Routine 04/30/2017 3:27 AM EDT HEMOGRAM Routine 04/29/2017 8:09 AM EDT DIFFERENTIAL, AUTOMATED Routine 04/29/2017 8:09 AM EDT CBC (WITH DIFF) Routine 04/29/2017 8:09 AM EDT MAGNESIUM Routine 04/29/2017 8:09 AM EDT BASIC METABOLIC PANEL Routine 04/29/2017 8:09 AM EDT HEMOGRAM Routine 04/28/2017 4:26 AM EST DIFFERENTIAL, AUTOMATED Routine 04/28/2017 4:26 AM EST CBC (WITH DIFF) Routine 04/28/2017 4:26 AM EST MAGNESIUM Routine 04/28/2017 4:26 AM EST BASIC METABOLIC PANEL Routine 04/28/2017 4:26 AM EST EKG 12-LEAD [...] BREAST RECONSTRUCTION, IMMEDIATE OR DELAYED, W/ TISSUE ENTERTAINMENT DIRECTOR, INCLUDING SUBSEQUENT EXPANSION (WRVU 14.84) 04/26/2017 7:40 [...] (ABNORMAL) Differential, Automated (05/01/2017 3:39 AM EDT) Neutrophil % 63.4 % [facility] Neutrophil Absolute 10.92(H) 1.70 - 6.10 x10(3)/ L [facility] Lymph % 16.8 % [facility] Lymphocytes Abs 2.9 0.9 - 3.2 x10(3)/[facility] Monocyte % 9.8 % [facility] Monocyte Abs 1.7(H) 0.3 - 0.9 x10(3)/[facility] Eos % 5.1 % [facility] Eosinophils Abs 0.9(H) 0.0 - 0.4 x10(3)/[facility] Basophil % 1.5 % [facility] Baso Absolute 0.2(H) 0.0 - 0.1 x10(3)/[facility] Immature Gran % 3.40 % [facility] Comment: Immature granulocytes(IG's)percentage and absolute count will include metamyelocytes, myelocytes, and promyelocytes. Blood smears from CBCs yielding IG's will be scanned manually for concordance. If this scan disagrees with the automated IG or if promyelocytes are noted, a manual differential will be performed. Immature Gran Absolute 0.59(H) 0.00 - 0.04 x10(3)/[facility] Blood specimen (specimen) 05/01/2017 3:39 AM EDT 05/01/2017 3:51 AM EDT Narrative Resulting Agency Comment Spec In Lab Yo Krueger MD HEMATOLOGY ORDERABLE S [facility] [place] [address] * (ABNORMAL) Hemogram (05/01/2017 3:39 AM EDT) White Blood Cell 17.2(H) 4.0 - 9.5 x10(3)/[facility] Red Blood Cell 3.87(L) 4.00 - 5.21 x10(6)/[facility] Hemoglobin 12.2 11.7 - 15.5 gm/dL [facility] Hematocrit 36.4 35.7 - 45.8 % [facility] Mean Cell Volume 94.1 82.6 - 94.4 fL [facility] Mean Cell Hemoglobin 31.5 27.1 - 32.0 pg [facility] Mean Cell Hemoglobin Concentration 33.5 31.7 - 35.0 gm/dL [facility] Platelet 402(H) 145 - 357 x10(3)/mc L [facility] RDW Standard Deviation 47.7(H) 37.0 - 46.0 fL [facility] RDW coefficient of variation 14.0 11.5 - 14.1 % [facility] Mean Platelet Volume 8.9 7.6 - 12.9 fL [facility] NRBC% auto 0.0 % [facility] NRBC Absolute 0.000 0.000 - 0.000 x10(3)/mc L [facility] Blood specimen (specimen) 05/01/2017 3:39 AM EDT 05/01/2017 3:51 AM EDT Narrative Resulting Agency Comment Spec In Lab Yo Krueger MD HEMATOLOGY ORDERABLE S Performing Organization Address City/[facility] Co de Phone Number [facility] [place] [address] * Magnesium (05/01/2017 3:39 AM EDT) Magnesium 0.78 0.69 - 1.07 mmol/L [facility] Blood specimen (specimen) 05/01/2017 3:39 AM EDT 05/01/2017 3:51 AM EDT Narrative Resulting Agency Comment Spec In Lab Mali Lakhani MD CHEMISTRY ORDERABLES Performing Organization Address City/[facility]/ZIP Co de Phone Number [facility] [place] [address] * (ABNORMAL) Basic Metabolic Panel (non-fasting) (05/01/2017 3:39 AM EDT) Glucose 95 65 - 199 mg/dL [facility] Comment:Diabetes: >=200 mg/d L plus symptoms Blood Urea Nitrogen 17 8 - 18 mg/dL [facility] Creatinine 1.01 0.70 - 1.20 mg/dL [facility] Sodium 142 135 - 145 mmol/L [facility] Potassium 3.7 3.5 - 5.0 mmol/L [facility] Comment: Please note: ??Patients with WBC >100,000 may have falsely elevated Potassium levels. ??For accurate Potassium quantification in these patients send serum separator tube (gold top) for subsequent determinations. ??Contact the Clinical Chemistry Laboratory if there are any questions. Chloride 102 98 - 107 mmol/L [facility] Carbon Dioxide 27 22 - 31 mmol/L [facility] Anion Gap 13 5 - 15 mmol/L [facility] Calcium 8.5 8.5 - 10.5 mg/dL [facility] Est Glomerular Filtration Rate 57(L) >=60 [facility] Comment: The reported eGFR should be multiplied by 1.2 for patients. The MDRD is not an appropriate measure of renal function for patients with body mass extremes or in patients with acute kidney failure. http://[employer]/DHnkdep http://[employer]/DHMCnkf Blood specimen (specimen) 05/01/2017 3:39 AM EDT 05/01/2017 3:51 AM EDT Narrative Resulting Agency Comment Spec In Lab Mali Lakhani MD CHEMISTRY ORDERABLES [facility] [place] [address] * IR Breast Drain Placement (04/30/2017 11:18 [...] ??complicated by intraoperative demise followed by Tissue Merchandising Representative placement. ??Patient has a RIGHT breast insitu [...] showed a space circumferentially around the tissue lens blocker. A 10Fr catheter was placed over the [...] (ABNORMAL) Differential, Automated (04/30/2017 3:27 AM EDT) Neutrophil % 61.8 % [facility] Neutrophil Absolute 9.05(H) 1.70 - 6.10 x10(3)/[facility] Lymph % 19.6 % [facility] Lymphocytes Abs 2.9 0.9 - 3.2 x10(3)/[facility] Monocyte % 9.3 % [facility] Monocyte Abs 1.4(H) 0.3 - 0.9 x10(3)/[facility] Eos % 5.3 % [facility] Eosinophils Abs 0.8(H) 0.0 - 0.4 x10(3)/[facility] Basophil % 1.3 % [facility] Baso Absolute 0.2(H) 0.0 - 0.1 x10(3)/[facility] Immature Gran % 2.70 % [facility] Comment: Immature granulocytes(IG's)percentage and absolute count will include metamyelocytes, myelocytes, and promyelocytes. Blood smears from CBCs yielding IG's will be scanned manually for concordance. If this scan disagrees with the automated IG or if promyelocytes are noted, a manual differential will be performed. Immature Gran Absolute 0.40(H) 0.00 - 0.04 x10(3)/[facility] Blood specimen (specimen) 04/30/2017 3:27 AM EDT 04/30/2017 3:47 AM EDT Narrative Resulting Agency Comment Spec In Lab Yo Krueger MD HEMATOLOGY ORDERABLE S [facility] [place] [address] * (ABNORMAL) Hemogram (04/30/2017 3:27 AM EDT) Pathologist [facility] White Blood Cell 14.7(H) 4.0 - 9.5 x10(3)/[facility] Red Blood Cell 3.62(L) 4.00 - 5.21 x10(6)/mc L [facility] Hemoglobin 11.5(L) 11.7 - 15.5 gm/dL [facility] Hematocrit 34.5(L) 35.7 - 45.8 % [facility] Mean Cell Volume 95.3(H) 82.6 - 94.4 fL [facility] Mean Cell Hemoglobin 31.8 27.1 - 32.0 pg [facility] Mean Cell Hemoglobin Concentration 33.3 31.7 - 35.0 gm/dL [facility] Platelet 350 145 - 357 x10(3)/mc L [facility] RDW Standard Deviation 49.0(H) 37.0 - 46.0 [facility] RDW coefficient of variation 13.9 11.5 - 14.1 % [facility] Mean Platelet Volume 9.1 7.6 - 12.9 [facility] NRBC% auto 0.0 % [facility] NRBC Absolute 0.000 0.000 - 0.000 x10(3)/mc L [facility] Blood specimen (specimen) 04/30/2017 3:27 AM EDT 04/30/2017 3:47 AM EDT Narrative Resulting Agency Comment Spec In Lab Yo Krueger MD HEMATOLOGY ORDERABLE S Performing Organization Address City/State/[facility] Co de Phone Number [facility] [place] [address] * Magnesium (04/30/2017 3:27 AM EDT) Magnesium 0.84 0.69 - 1.07 mmol/L [facility] Blood specimen (specimen) 04/30/2017 3:27 AM EDT 04/30/2017 3:47 AM EDT Narrative Resulting Agency Comment Spec In Lab Mali Lakhani MD CHEMISTRY ORDERABLES Performing Organization Address City/[facility]/ZIP Co de Phone Number [facility] [place] [address] * (ABNORMAL) Basic Metabolic Panel (non-fasting) (04/30/2017 3:27 AM EDT) Glucose 99 65 - 199 mg/dL [facility] Comment:Diabetes: >=200 mg/d L plus symptoms Blood Urea Nitrogen 16 8 - 18 mg/dL [facility] Creatinine 1.00 0.70 - 1.20 mg/dL [facility] Sodium 145 135 - 145 mmol/L [facility] Potassium 3.8 3.5 - 5.0 mmol/L [facility] Comment: Please note: ??Patients with WBC >100,000 may have falsely elevated Potassium levels. ??For accurate Potassium quantification in these patients send serum separator tube (gold top) for subsequent determinations. ??Contact the Clinical Chemistry Laboratory if there are any questions. Chloride 106 98 - 107 mmol/L [facility] Carbon Dioxide 26 22 - 31 mmol/L [facility] Anion Gap 13 5 - 15 mmol/L [facility] Calcium 8.3(L) 8.5 - 10.5 mg/dL [facility] Est Glomerular Filtration Rate 58(L) >=60 [facility] Comment: The reported eGFR should be multiplied by 1.2 for patients. The MDRD is not an appropriate measure of renal function for patients with body mass extremes or in patients with acute kidney failure. http://[employer]/DHnkdep http://[employer]time Worlds/DHMCnkf Blood specimen (specimen) 04/30/2017 3:27 AM EDT 04/30/2017 3:47 AM EDT Narrative Resulting Agency Comment Spec In Lab Mali Lakhani MD CHEMISTRY ORDERABLES Performing Organization Address City/[facility]/ZIP Co de Phone Number [facility] [place] [address] * (ABNORMAL) Differential, Automated (04/29/2017 8:09 AM EDT) Neutrophil % 70.4 % [facility] Neutrophil Absolute 11.03(H) 1.70 - 6.10 x10(3)/[facility] Lymph % 14.7 % [facility] Lymphocytes Abs 2.3 0.9 - 3.2 x10(3)/[facility] Monocyte % 9.1 % [facility] Monocyte Abs 1.4(H) 0.3 - 0.9 x10(3)/[facility] Eos % 3.7 % [facility] Eosinophils Abs 0.6(H) 0.0 - 0.4 x10(3)/[facility] Basophil % 1.0 % [facility] Baso Absolute 0.2(H) 0.0 - 0.1 x10(3)/[facility] Immature Gran % 1.10 % [facility] Comment: Immature granulocytes(IG's)percentage and absolute count will include metamyelocytes, myelocytes, and promyelocytes. Blood smears from CBCs yielding IG's will be scanned manually for concordance. If this scan disagrees with the automated IG or if promyelocytes are noted, a manual differential will be performed. Immature Gran Absolute 0.18(H) 0.00 - 0.04 x10(3)/[facility] Blood specimen (specimen) 04/29/2017 8:09 AM EDT 04/29/2017 8:16 AM EDT Narrative Resulting Agency Comment Spec In Lab Yo Krueger MD HEMATOLOGY ORDERABLE S [facility] [place] [address] * (ABNORMAL) Hemogram (04/29/2017 8:09 AM EDT) White Blood Cell 15.7(H) 4.0 - 9.5 x10(3)/mc L [facility] Red Blood Cell 3.70(L) 4.00 - 5.21 x10(6)/mc L [facility] Hemoglobin 11.8 11.7 - 15.5 gm/dL [facility] Hematocrit 34.6(L) 35.7 - 45.8 % [facility] Mean Cell Volume 93.5 82.6 - 94.4 fL [facility] Mean Cell Hemoglobin 31.9 27.1 - 32.0 pg [facility] Mean Cell Hemoglobin Concentration 34.1 31.7 - 35.0 gm/dL [facility] Platelet 300 145 - 357 x10(3)/[facility]ORY RDW Standard Deviation 47.6(H) 37.0 - 46.0 [facility] RDW coefficient of variation 13.9 11.5 - 14.1 % [facility] Mean Platelet Volume 9.2 7.6 - 12.9 [facility] NRBC% auto 0.0 % [facility] NRBC Absolute 0.000 0.000 - 0.000 x10(3)/ L [facility] Blood specimen (specimen) 04/29/2017 8:09 AM EDT 04/29/2017 8:16 AM EDT Narrative Resulting Agency Comment Spec In Lab Yo Krueger MD HEMATOLOGY ORDERABLE S [facility] [place] [address] * Magnesium (04/29/2017 8:09 AM EDT) Magnesium 0.88 0.69 - 1.07 mmol/L [facility] Blood specimen (specimen) 04/29/2017 8:09 AM EDT 04/29/2017 8:16 AM EDT Narrative Resulting Agency Comment Spec In Lab Mali Lakhani MD CHEMISTRY ORDERABLES Performing Organization Address City/[facility]/ZIP Co de Phone Number [facility] [place] [address] * (ABNORMAL) Basic Metabolic Panel (non-fasting) (04/29/2017 8:09 AM EDT) Glucose 114 65 - 199 mg/dL [facility] Comment:Diabetes: >=200 mg/d L plus symptoms Blood Urea Nitrogen 16 8 - 18 mg/dL [facility] Creatinine 0.89 0.70 - 1.20 mg/dL [facility] Sodium 142 135 - 145 mmol/L [facility] Potassium 3.5 3.5 - 5.0 mmol/L [facility] Comment: Please note: ??Patients with WBC >100,000 may have falsely elevated Potassium levels. ??For accurate Potassium quantification in these patients send serum separator tube (gold top) for subsequent determinations. ??Contact the Clinical Chemistry Laboratory if there are any questions. Chloride 104 98 - 107 mmol/L [facility] Carbon Dioxide 25 22 - 31 mmol/L [facility] Anion Gap 13 5 - 15 mmol/L [facility] Calcium 7.9(L) 8.5 - 10.5 mg/dL [facility] Est Glomerular Filtration Rate >60 >=60 [facility] Comment: The reported eGFR should be multiplied by 1.2 for patients. The MDRD is not an appropriate measure of renal function for patients with body mass extremes or in patients with acute kidney failure. http://[employer]/DHnkdep http://[employer]/DHMCnkf Blood specimen (specimen) 04/29/2017 8:09 AM EDT 04/29/2017 8:16 AM EDT Narrative Resulting Agency Comment Spec In Lab Mali Lakhani MD CHEMISTRY ORDERABLES Performing Organization Address City/[facility]/ZIP Co de Phone Number [facility] [place] [address] * (ABNORMAL) Differential, Automated (04/28/2017 4:26 AM EST) Neutrophil % 78.7 % [facility] Neutrophil Absolute 14.15(H) 1.70 - 6.10 x10(3)/[facility] Lymph % 8.4 % [facility] Lymphocytes Abs 1.5 0.9 - 3.2 x10(3)/[facility] Monocyte % 11.2 % [facility] Monocyte Abs 2.0(H) 0.3 - 0.9 x10(3)/[facility] Eos % 0.4 % [facility] Eosinophils Abs 0.1 0.0 - 0.4 x10(3)/[facility] Basophil % 0.4 % [facility] Baso Absolute 0.1 0.0 - 0.1 x10(3)/[facility] Immature Gran % 0.90 % [facility] Comment: Immature granulocytes(IG's)percentage and absolute count will include metamyelocytes, myelocytes, and promyelocytes. Blood smears from CBCs yielding IG's will be scanned manually for concordance. If this scan disagrees with the automated IG or if promyelocytes are noted, a manual differential will be performed. Immature Gran Absolute 0.17(H) 0.00 - 0.04 x10(3)/[facility] Blood specimen (specimen) 04/28/2017 4:26 AM EST 04/28/2017 4:50 AM EST Narrative Resulting Agency Comment Spec In Lab Yo Krueger MD HEMATOLOGY ORDERABLE S [facility] [place] [address] * (ABNORMAL) Hemogram (04/28/2017 4:26 AM EST) White Blood Cell 18.0(H) 4.0 - 9.5 x10(3)/mc L [facility] Red Blood Cell 3.43(L) 4.00 - 5.21 x10(6)/mc L [facility] Hemoglobin 10.7(L) 11.7 - 15.5 gm/dL [facility] Hematocrit 31.6(L) 35.7 - 45.8 % [facility] Mean Cell Volume 92.1 82.6 - 94.4 fL [facility] Mean Cell Hemoglobin 31.2 27.1 - 32.0 pg [facility] Mean Cell Hemoglobin Concentration 33.9 31.7 - 35.0 gm/dL [facility] Platelet 289 145 - 357 x10(3)/[facility] RDW Standard Deviation 46.9(H) 37.0 - 46.0 fL [facility] RDW coefficient of variation 13.8 11.5 - 14.1 % [facility] Mean Platelet Volume 9.4 7.6 - 12.9 fL [facility] NRBC% auto 0.0 % [facility] NRBC Absolute 0.000 0.000 - 0.000 x10(3)/ L [facility] Blood specimen (specimen) 04/28/2017 4:26 AM EST 04/28/2017 4:50 AM EST Narrative Resulting Agency Comment Spec In Lab Yo Krueger MD HEMATOLOGY ORDERABLE S [facility] [place] [address] * (ABNORMAL) Magnesium (04/28/2017 4:26 AM EST) Magnesium 1.20(H) 0.69 - 1.07 mmol/L [facility] Comment:result rechecked-imm Blood specimen (specimen) 04/28/2017 4:26 AM EST 04/28/2017 4:50 AM EST Narrative Resulting Agency Comment Spec In Lab Mali Lakhani MD CHEMISTRY ORDERABLES Performing Organization Address City/[facility]/ZIP Co de Phone Number [facility] [place] [address] * (ABNORMAL) Basic Metabolic Panel (non-fasting) (04/28/2017 4:26 AM EST) Glucose 149 65 - 199 mg/dL [facility] Comment:Diabetes: >=200 mg/d L plus symptoms Blood Urea Nitrogen 29(H) 8 - 18 mg/dL [facility] Creatinine 1.09 0.70 - 1.20 mg/dL [facility] Sodium 139 135 - 145 mmol/L [facility] Potassium 3.2(L) 3.5 - 5.0 mmol/L [facility] Comment: Please note: ??Patients with WBC >100,000 may have falsely elevated Potassium levels. ??For accurate Potassium quantification in these patients send serum separator tube (gold top) for subsequent determinations. ??Contact the Clinical Chemistry Laboratory if there are any questions. Chloride 102 98 - 107 mmol/L [facility] Carbon Dioxide 23 22 - 31 mmol/L [facility] Anion Gap 14 5 - 15 mmol/L [facility] Calcium 7.3(L) 8.5 - 10.5 mg/dL [facility] Est Glomerular Filtration Rate 53(L) >=60 [facility] Comment: The reported eGFR should be multiplied by 1.2 for patients. The MDRD is not an appropriate measure of renal function for patients with body mass extremes or in patients with acute kidney failure. http://[employer]/DHnkdep http://[employer]/DHMCnkf Blood specimen (specimen) 04/28/2017 4:26 AM EST 04/28/2017 4:50 AM EST Narrative Resulting Agency Comment Spec In Lab Mali Lakhani MD CHEMISTRY ORDERABLES Performing Organization Address City/[facility]/ZIP Co de Phone Number [facility] [place] [address] * EKG 12 Lead (04/27/2017 3:45 PM EST) Ventricular rate 101 BPM MUSE SYSTEM Atrial Rate 101 BPM MUSE SYSTEM P-R Interval 164 ms MUSE SYSTEM QRS Duration 84 ms MUSE SYSTEM Q-T Interval 362 ms MUSE SYSTEM QTC Calculated (Bezet) 469 ms MUSE SYSTEM Calculated P Slovan 36 degrees MUSE SYSTEM Calculated R Slovan -8 degrees MUSE SYSTEM Calculated T Slovan 47 degrees MUSE SYSTEM INTERPRETATION Sinus tachycardia Nonspecific T wave abnormality Abnormal ECG When compared with ECG of 02-NOV-2015 13:47, Nonspecific T wave abnormality, worse in Inferior leads QT has shortened Confirmed by MD ROYER, MALI ([id number]) on 04/28/2017 4:17:57 PM MUSE SYSTEM [...] at 04/27/2017 3:54 PM Mali Lakhani MD [facility] DX ORDERABLES * XR Chest PA or [...] IMPRESSION No visible pneumothorax. Mali Lakhani MD [facility] DX ORDERABLES * Scan, Peripheral Blood (04/27/2017 1:00 AM EST) Plat estimate Normal [facility] RBC Morphology Abnormal [facility] Sammie Cells 1-5 /HPF [facility] Blood specimen (specimen) 04/27/2017 1:00 AM EST 04/27/2017 1:20 AM EST Narrative Resulting Agency Comment Spec In Lab Kaveh Whiteside MD HEMATOLOGY O RDERABLES [facility] [place] [address] * (ABNORMAL) Differential, Automated (04/27/2017 1:00 AM EST) Neutrophil % 81.9 % [facility] Neutrophil Absolute 18.61(H) 1.70 - 6.10 x10(3)/mc L [facility] Lymph % 4.8 % [facility] Lymphocytes Abs 1.1 0.9 - 3.2 x10(3)/mc L [facility] Monocyte % 12.3 % [facility] Monocyte Abs 2.8(H) 0.3 - 0.9 x10(3)/mc L [facility] Eos % 0.0 % [facility] Eosinophils Abs 0.0 0.0 - 0.4 x10(3)/mc L [facility] Basophil % 0.2 % [facility] Baso Absolute 0.0 0.0 - 0.1 x10(3)/mc L [facility] Immature Gran % 0.80 % [facility] Comment: Immature granulocytes(IG's)percentage and absolute count will include metamyelocytes, myelocytes, and promyelocytes. Blood smears from CBCs yielding IG's will be scanned manually for concordance. If this scan disagrees with the automated IG or if promyelocytes are noted, a manual differential will be performed. Immature Gran Absolute 0.19(H) 0.00 - 0.04 x10(3)/mc L [facility] Blood specimen (specimen) 04/27/2017 1:00 AM EST 04/27/2017 1:20 AM EST Narrative Resulting Agency Comment Spec In Lab Kaveh Whiteside MD HEMATOLOGY O RDERABLES [facility] [place] [address] * (ABNORMAL) Hemogram (04/27/2017 1:00 AM EST) White Blood Cell 22.7(H) 4.0 - 9.5 x10(3)/[facility] Red Blood Cell 3.79(L) 4.00 - 5.21 x10(6)/[facility] Hemoglobin 12.0 11.7 - 15.5 gm/dL [facility] Hematocrit 36.3 35.7 - 45.8 % [facility] Mean Cell Volume 95.8(H) 82.6 - 94.4 fL [facility] Mean Cell Hemoglobin 31.7 27.1 - 32.0 pg [facility] Mean Cell Hemoglobin Concentration 33.1 31.7 - 35.0 gm/dL [facility] Platelet 337 145 - 357 x10(3)/[facility] RDW Standard Deviation 47.4(H) 37.0 - 46.0 [facility] RDW coefficient of variation 13.4 11.5 - 14.1 % [facility] Mean Platelet Volume 9.3 7.6 - 12.9 fL [facility] NRBC% auto 0.0 % [facility] NRBC Absolute 0.000 0.000 - 0.000 x10(3)/ L [facility] Blood specimen (specimen) 04/27/2017 1:00 AM EST 04/27/2017 1:20 AM EST Narrative Resulting Agency Comment Spec In Lab Kaveh Whiteside MD HEMATOLOGY O RDERABLES Performing Organization Address [facility] Co de Phone Number [facility] [place] [address] * (ABNORMAL) Phosphorus (04/27/2017 1:00 AM EST) Phosphorus 6.3(H) 2.5 - 4.5 mg/dL [facility] Blood specimen (specimen) 04/27/2017 1:00 AM EST 04/27/2017 1:20 AM EST Narrative Resulting Agency Comment Spec In Lab Mali Lakhani MD CHEMISTRY ORDERABLES Performing Organization Address [facility] de Phone Number [facility] [place] [address] * (ABNORMAL) Magnesium (04/27/2017 1:00 AM EST) Magnesium 0.56(L) 0.69 - 1.07 mmol/L [facility] Blood specimen (specimen) 04/27/2017 1:00 AM EST 04/27/2017 1:20 AM EST Narrative Resulting Agency Comment Spec In Lab Mali Lakhani MD CHEMISTRY ORDERABLES Performing Organization Address [facility] Co de Phone Number [facility] [place] [address] * (ABNORMAL) Calcium (04/27/2017 1:00 AM EST) Calcium 7.2(L) 8.5 - 10.5 mg/dL [facility] Blood specimen (specimen) 04/27/2017 1:00 AM EST 04/27/2017 1:20 AM EST Narrative Resulting Agency Comment Spec In Lab Mali Lakhani MD CHEMISTRY ORDERABLES Performing Organization Address [facility] Co de Phone Number [facility] [place] [address] * (ABNORMAL) Creatinine (04/27/2017 1:00 AM EST) Creatinine 1.40(H) 0.70 - 1.20 mg/dL [facility] Est Glomerular Filtration Rate 39(L) >=60 [facility] Comment: The reported eGFR should be multiplied by 1.2 for patients. The MDRD is not an appropriate measure of renal function for patients with body mass extremes or in patients with acute kidney failure. http://[employer]/DHnkdep http://Language [employer]/DHMCnkf Blood specimen (specimen) 04/27/2017 1:00 AM EST 04/27/2017 1:20 AM EST Narrative Resulting Agency Comment Spec In Lab Mali Lakhani MD CHEMISTRY ORDERABLES Performing Organization Address [facility] Co de Phone Number [facility] [place] [address] * (ABNORMAL) BUN (04/27/2017 1:00 AM EST) Blood Urea Nitrogen 25(H) 8 - 18 mg/dL [facility] Blood specimen (specimen) 04/27/2017 1:00 AM EST 04/27/2017 1:20 AM EST Narrative Resulting Agency Comment Spec In Lab Mali Lakhani MD CHEMISTRY ORDERABLES Performing Organization Address [facility]/ZIP Co de Phone Number [facility] [place] [address] * (ABNORMAL) Electrolytes panel (04/27/2017 1:00 AM EST) Sodium 140 135 - 145 mmol/L [facility] Potassium 3.4(L) 3.5 - 5.0 mmol/L [facility] Comment: Please note: ??Patients with WBC >100,000 may have falsely elevated Potassium levels. ??For accurate Potassium quantification in these patients send serum separator tube (gold top) for subsequent determinations. ??Contact the Clinical Chemistry Laboratory if there are any questions. Chloride 98 98 - 107 mmol/L [facility] Carbon Dioxide 18(L) 22 - 31 mmol/L [facility] Anion Gap 24(H) 5 - 15 mmol/L [facility] Blood specimen (specimen) 04/27/2017 1:00 AM EST 04/27/2017 1:20 AM EST Narrative Resulting Agency Comment Spec In Lab Mali Lakhani MD CHEMISTRY ORDERABLES Performing Organization Address City/[facility]/[place] [address] * Specimen to Pathology (04/26/2017 11:57 AM EST) AP Specimen 04/26/2017 11:5 7 AM EST 04/26/2017 12:34 PM EST Narrative [facility] - 04/26/2017 12:34 PM EST Specimen requisition ordered. ??Separate Pathology report to follow Resulting Agency Comment Spec In Lab Mali Lakhani MD PATHOLOGY/CYTOLOGY O RDERABLES Performing Organization Address [facility]/[place] [address] * Specimen to Pathology (04/26/2017 10:52 AM EST) AP Specimen 04/26/2017 10:5 2 AM EST 04/26/2017 12:34 PM EST Narrative [facility] - 04/26/2017 12:34 PM EST Specimen requisition ordered. ??Separate Pathology report to follow Resulting Agency Comment Spec In Lab Ria Menendez MD PATHOLOGY/CYTOLOGY ORDERABLES Performing Organization Address City/[facility]/[place] [address] * Specimen to Pathology (04/26/2017 10:52 AM EST) AP Specimen 04/26/2017 10:5 2 AM EST 04/26/2017 12:34 PM EST Narrative [facility] - 04/26/2017 12:34 PM EST Specimen requisition ordered. ??Separate Pathology report to follow Resulting Agency Comment Spec In Lab Ria Menendez MD PATHOLOGY/CYTOLOGY ORDERABLES [facility] [place] [address] * Surgical Pathology Report (04/26/2017 10:50 AM EST) Final Diagnosis [id number] ? Location: [facility]; [facility]; A The signing pathologist has (i) examined [...] ?? Invasive ductal carcinoma ? Histologic Grade ([place] Histologic Score) ?Glandular (Acinar) / Tubular Differentiation: [...] AJCC 8th Edition CAP Annual Release ER, TN, and HER2 testing (performed on prior biopsy, [id number]): ER: Positive ( >90%, strong) TN: Positive ( >90%, strong) HER2 FISH: Negative Electronically signed by: ??Bill Zavala MD Verified: ??05/02/2017 ?Pathologist Performed at: ??-[facility] [place] Dept. of [place]ology, [place], [place] CLINICAL INFORMATION Specimen Submitted: A - [...] margin to lesion III; (8) slice III, [employer] normal parenchyma, upper inner quadrant; (9) slice III, [employer] normal parenchyma, lower inner quadrant; (10-11) slice IV, lesion IV to nearest deep-black margin; (12) slice V, lesion V to deep-black margin; (13) slice V, lesion V to deep- black margin; (14-15) slice , lesion V to closest deep-black margin, with clip in A14; (16-17) slice VII, lesion to nearest superficial-blue margin; (18) slice , [employer] normal parenchyma, lower outer quadrant, with skin; (19) slice , [employer] normal parenchyma, upper outer quadrant; (20) slice V, nipple base; (21) slice , [employer] subareolar tissue ?? . (R21) Ischemic Time: [...] (13) slice , lesional area abutting the [id number] margin; (14) slice , lesional area abutting the superficial-blue margin; (15) slice VII, lesional area abutting the deep-black margin; (16) slice VII, lesional area abutting the superficial-blue margin; (17) slice VIII, lesional area to vnorkzuujyi-hsu-rfhj margin; (18) slice IX, lesional area to lateral margin; (19) slice IV, nipple base; (20) slice , [employer] skin . (R20) Ischemic Time: 170 minutes 05/02/2017 10:[address] [facility] BREAST STRUCTURE / Unknown 04/26/2017 10:50 AM EST 04/26/2017 10:50 AM EST BREAST STRUCTURE / Unknown 04/26/2017 10:50 AM EST 04/26/2017 10:50 AM EST BREAST STRUCTURE / Unknown 04/26/2017 10:50 AM EST 04/26/2017 10:50 AM EST Ria Menendez MD PATHOLOGY/CY[place] [address] documented in this encounter Visit Diagnoses Diagnosis [...] Until Sun04/30/17 at 1030, Shannan Galan: janice vo fentaNYL 50 mcg/mL multi-dose injection 25-50 mcg, [...] 600 mg, Oral, ONCE, 1 dose, On Sosa 04/26/17 at 0645, Day of Surgery (Day of [...] PRN, Starting on 04/28/17 at 2054, Until Tu05/01/17 at 1420, High Blood Pressure, SBP > [...] Sun04/30/17 at 1030, Shannan Galan: cabinet override midazolam (PF) (VERSED) 1 mg/mL multi-dose [...] Mann RN)1507 (Given - Provider: Carrie Mann RN)2007 (Given - Provider: Karley Easton RN)2319 (Given - Provider: Karley Easton RN) 0339 (Given - Provider: Karley Easton RN)0801 (Given - Provider: Christy Tang RN)1208 (Given - Provider: Christy Tang RN)1531 (Given - Provider: Christy Tang, JENNYFER)2004 (Given - Provider: Karley Easton RN) 0003 [...] on Sun04/27/17 at 0900, Until Discontinued, Routine 812 (Given - Provider: Carrie Mann RN)2007 (Given - Provider: Karley Easton RN) 801 (Given - Provider: Christy Tang RN)2004 (Given [...] dose on Sun04/27/17 at 0900, Until Discontinued 814 (Given - Provider: Carrie Mann RN) 08 (Given - Provider: Christy Tang RN) 0816 (Given - Provider: Senia Meeks RN) FLUoxetine (PROzac) capsule 40 mg 40 mg, Oral, DAILY, First dose on Sun04/27/17 at 0900, Until Discontinued, Routine 08 (Given - Provider: Carrie Mann RN) 0802 (Given - Provider: Christy Tang RN) 0816 (Given - Provider: Senia Meeks RN) hydroCHLOROthiazide (HYDRODIURIL) tablet 12.5 mg 12.5 mg, Oral, DAILY, First dose on Sun04/27/17 at 1730, Until Discontinued, Routine 08 (Given - Provider: Carrie Mann RN) 0804 (Given - Provider: Christy Tang RN) 0816 (Given - Provider: Senia Meeks RN) Lactobacillus (BACID) tablet 1 tablet 1 tablet, Oral, DAILY, First dose on Sun04/27/17 at 0900, Until Discontinued, Routine 0814 (Given - Provider: Carrie Mann RN) 08 (Given - Provider: Christy Tang RN) 0816 (Given - Provider: Senia Meeks, JENNYFER) levothyroxine (SYNTHROID) tablet 112 mcg 112 mcg, [...] Routine 1030 (Given - Provider: Shannan Galan, JENNYFER)1035 (Given - Provider: Shannan Galan, JENNYFER)1045 (Given - Provider: Shannan Galan, JENNYFER)1050 (Given - Provider: Shannan Galan, JENNYFER) HYDROmorphone [...] minutes., Routine 0502 (Given - Provider: Karley Easton RN) ibuprofen (ADVIL;MOTRIN) tablet 600 mg 600 mg, Oral, EVERY 6 HOURS PRN, Starting on Sun04/29/17 at 1156, Until Sun05/01/17 at 1420, Pain, Administer orally with milk or food to minimize GI irritation. Maximum dose of 3200 mg from all sources in 24 hours, Routine 1552 (Given - Provider: Christy Tang, JENNYFER) 0407 (Given - Provider: Karley Easton RN) iohexol (OMNIPAQUE) 350 mg/mL solution 50 mL (COMPLETED) 50 mL, Other, ONCE PRN, 1 dose, Starting on 04/30/17 at 1105, Until 04/30/17 at 1106, Per Protocol, Warning Vesicant/Irritant Medication , Angio/IR (Intra-Procedure), Routine 1106 (Given - Provider: Keon Bunn) labetalol (NORMODYNE,TRANDATE) injection 20 mg 20 mg, Intravenous, EVERY 4 HOURS PRN, Starting on 04/28/17 at 2054, Until Tu05/01/17 at 1420, High Blood Pressure, SBP > [...] Intravenous, EVERY 3 MIN PRN, Starting on 04/30/17 at 0944, Until Sun04/30/17 at 1103, Sleep, [...] Shannan Galan RN)1035 (Given - Provider: Shannan Galan, JENNYFER)1045 (Given - Provider: Shannan Galan, JENNYFER)1050 (Given - Provider: Shannan Galan, JENNYFER) ondansetron [...] Oral, EVERY 8 HOURS PRN, Starting on 04/27/17 at 0038, Until Sun05/01/17 at 1420, Nausea, Vomiting, If multiple antiemetics are ordered, use ondansetron first. PO Preferred. If patient unable to take PO, may give IV if ordered. May repeat times one in 45 minutes if ineffective., Recovery (Recovery-Hospital Unit), Routine 0934 (Given - Provider: Carrie Mann RN) 0831 (See Alternative - Provider: Christy Tang RN) 0945 (Given - Provider: Senia Meeks, JENNYFER) [...] Christy Tang RN)1401 (Given - Provider: Christy Tang, JENNYFER)1831 (Given - Provider: Christy Tang RN) 0003 [...] Easton RN)0802 (See Alternative - Provider: Christy Tang, JENNYFER)1401 (See Alternative - Provider: Christy Tang RN)1831 [...] Intravenous, EVERY 8 HOURS PRN, Starting on 04/27/17 at 0038, Until Tu05/01/17 at 1420, Nausea, May repeat times one in 30 minutes if ineffective. If multiple antiemetics are ordered, use ondanstron first, Recovery (Recovery- Hospital Unit) Group 3: oxyCODONE (ROXICODONE) immediate release tablet 5 mgJump to med 5 mg, Oral, EVERY 4 HOURS PRN, Starting on 04/29/17 at 1034, Until Tu05/01/17 at 1420, Pain, mild pain (1-3), May [...] at 1034, Until Tu05/01/17 at 1420, Pain, severe pain or opiate tolerant patient (7-10), Do not start patient with 15 mg dose. Do not give 15 mg if patient is opiate niave., Routine documented in this encounter Care Teams Lance Crewmember Relationship Specialty Start Date End Date Trinh Coates MD [address] [place] [address] PCP - General 01/11/10 documented as of this encounter
--- OUTSIDE RECORDS SUMMARY | 2023-09-25 11:51 | XMS_ITS | Encounter Summary ---
Author Organization [facility] [place] [address] Care Team Providers Care Boring Machine Set Up Operator Jig Name Role Phone Trinh Coates MD Primary Care Provider [phone] Reason for Referral * Diagnostic Test (Routine) - Closed Specialty Diagnoses / Procedures Referred By Diamante marin Referred To Contact Radiology Diagnoses Status post bilateral breast reconstruction Procedures IR Drain Check/Change/Remove Andre Crowley MD [facility] [place] [address] [place] [address] Referral ID Status Reason Start Date Expiration Date V isits Requested Visits Authorized [id number] Closed Specialty Service Requested 04/30/2017 04/30/2018 1 1 Encounter Details Date Type Department Care Team (Late st Contact Info) Description 04/30/2017 [place] [address] Andre Crowley MD [facility] [place] [address] Status post bilateral breast reconstruction [...] 01/22/2024 10:30 AM EST Appointment Mammography/[place] [address] Ladi Mendosa MD [facility] HEMATOLOGY [place] [address] 01/30/2024 11:30 AM EST Office Visit Dermatology at [facility] [address] [place] [phone] Nilda Luis MD [facility] [place] [address] 02/14/2024 7:30 AM [place] [phone] Joanna Watts MD [facility] [place] [address] documented as of this encounter Results * [...] ??complicated by intraoperative demise followed by Tissue Home Health Aide placement. Patient had a RIGHT breast insitu [...] injection fills a space surrounding the tissue quality control microbiologist. The drain was flushed and re-connected to [...] injection fills a space surrounding the tissue quality control microbiologist. The drain was flushed and re-connected to suction bulb. 2. ??Left axillary drain check: no significant cavity observed on either drain injection or US evaluation. 3. ??Over the wire removal of the left axillary drain as above. Attending: ?Rashaad Paulson MD ? I was present during the intraservice time as documented by the IR Nurse. Andre Crowley MD [facility] [place] [facility] [place] documented in this encounter Visit Diagnoses Diagnosis Status post bilateral breast reconstruction Breast replaced by other means documented in this encounter Care Teams Boring Machine Set Up Operator Jig Relationship Specialty Start Date End Date Trinh Coates MD [facility] [address] [place] [address] PCP - General 01/11/10 documented as of this encounter
--- OUTSIDE RECORDS SUMMARY | 2023-09-25 11:51 | XMS_ITS | Encounter Summary ---
Author Organization [facility] [place] [address] Care Team Providers Care Warp Dyeing Tender Name Role Phone Trinh Coates MD Primary Care Provider [phone] Reason for Visit * Auth/Cert Specialty Diagnoses / Procedures Referred By Diamante marin Referred To Contact Diagnoses Left breast cancer Procedures PRO BREAST RECONSTRUC W FREE FLAP @BREAST RECONSTRUCTION W/ FREE FLAP, SUSAN (WRVU 42.58) Referral ID Status Reason Start Date Expiration Date Visits Re quested Visits Authorized [id number] 1 1 Encounter Details Date Type Department Care Team (Late st Contact Info) Description 04/26/2017 7:30 AM EST - 04/26/2017 3:58 PM EST Surgery [place] [address] Mali Lakhani MD [facility] [place] [address] @BREAST RECONSTRUCTION W/ FREE FLAP, SUSAN (WRVU [...] : 51 y.o. 1965 Language, race, ethnicity: Romanian, White, Not nor Date of Admission: 04/26/2017 [...] BREAST RECONSTRUCTION, IMMEDIATE OR DELAYED, W/ TISSUE CARROT BUNCHER, INCLUDING SUBSEQUENT EXPANSION (WRVU 18.5) FTSG, FREE, DIR CLOSE DONOR SITE, TRUNK, 20 SQ CM OR LESS (WRVU 9.15) 04/26/2017 - 04/27/2017 History of Presentation: 51yo F pt with history of Er/NM+, HEr2- right breast CA. Per office note [...] 1 surgery, but her last surgeries at [facility] went very smoothly with anesthesia. She [...] Hospital Course: Patient was admitted electively to [facility] via the same day surgery program and [...] LARYNGEAL performed by Valentina Lucas MD at [facility] OR ??? PRO BREAST RECONSTRUC W FREE FLAP Bilateral 04/26/2017 @BREAST RECONSTRUCTION W/ FREE FLAP, SUSAN (WRVU 42.58) [facility]?? PRO BREAST RECONSTRUC W TISS EXPANDR Bilateral 04/26/2017 BREAST RECONSTRUCTION, IMMEDIATE OR DELAYED, W/ TISSUE CARROT BUNCHER, INCLUDING SUBSEQUENT EXPANSION (WRVU 18.5) performed by Mali Lakhani MD at [facility] OR ??? PRO EXPLORE PARATHYROID GLANDS N/A 11/02/2015 PARATHYROIDECTOMY OR EXPLORATION OF PARATHYROID(S) performed by Valentina Lucas MD at [facility] OR ? ? PRO FULL THICK GRFT TRUNK <20 SQCM Bilateral 04/26/2017 FTSG, FREE, DIR CLOSE DONOR SITE, TRUNK, 20 SQ CM OR LESS (WRVU 9.15) performed by Mali Lakhani MD at [facility] OR ??? PRO MASTECTOMY, SIMPLE, COMPLETE Bilateral 04/26/2017 MASTECTOMY, SIMPLE, COMPLETE-SUSAN (WRVU 15.85) performed by Ria Menendez MD at [facility] OR ??? PRO PARTIAL REMOVAL OF RIB Bilateral 04/26/2017 EXCISION OF RIB, PARTIAL (WRVU 7.26) performed by Mali Lakhani MD at [facility] OR ??? PRO REMOVE ARMPITS LYMPH NODES COMPLT Left 04/26/2017 LYMPHADENECTOMY, AXILLARY, COMPLETE (WRVU 13.87) performed by Ria Menendez MD at [facility] ??? PRO THYMECTOMY, TRANSCERVICAL N/A 11/02/2015 THYMECTOMY, TRANSCERVICAL APPROACH performed by Valentina Lucas MD at [facility] OR ??? SHOULDER SURGERY Left [...] BREAST RECONSTRUCTION, IMMEDIATE OR DELAYED, W/ TISSUE CARROT BUNCHER, INCLUDING SUBSEQUENT EXPANSION (WRVU 18.5) FTSG, FREE, [...] Your medications were sent electronically to the [facility] pharmacy The healing process after breast reconstruction [...] and only as needed. ??? Take an ycvz-edr-mabrkmd stool softener, such as Colace while taking [...] about scheduling, please contact our administrative officesat [phone] For clinical questions, please call our nurses at [phone] Both offices are open Sunday thru Sunday 8a - 5p. With emergencies after hours, call the hospital can bander operator at [phone] and ask for the Plastic Surgery Resident permastone applicator. Narcotics: You may be given a prescription [...] called in to our prescription line at [phone]. Narcotic renewals may be requested from 8am-4pm [...] arrival. Post-Op Plan: - Follow up with ENGINEERED WOOD DESIGNER/nurse - A nurse from clinic will call [...] [facility] Surg [facility] 05/14/2017 2:00 PM [facility] IR [facility] 3 IR [facility] 05/14/2017 3:30 PM Gustavo Mota MD [facility] Hem Onc [facility] 05/21/2017 8:[address] [facility] 05/21/2017 9:00 AM Emily Choi MD [facility] General Instructions INTERVENTIONAL RADIOLOGY DRAIN CARE [...] is during regular office hours, please call [phone]. If it is after regular office hours, or on weekends or holidays, please call [phone] and ask to speak to the Counseling Department Chair permastone applicator for Interventional Radiology. Revised 03/05/15 Drainage Record NAME: Date of Surgery: Date: Time: If more than one drain, which one: Drainage Amount (per drain) Total Amount (per drain; in 24 hours) Future Appointments and Orders Future Appointments Provider Department Dept Phone 05/07/2017 10:00 AM Romy Abarca PT Physical [facility] [place] [phone] 05/14/2017 9:00 AM NURSE, PLASTIC SURGERY Plastic Surgery [facility] [place] [phone] 05/14/2017 10:00 AM Ria Menendez MD General Surgery [facility] [place] [phone] 05/14/2017 2:00 PM [facility] IR ROOM 3 Radiology at [place] [phone] Please expect a call from a radiology nurse within 3 days of your exam, you will need to follow theinstructions given at that time. 05/14/2017 3:30 PM Rasheeda Trent RN; Gustavo Mota MD; [facility], SOCIAL WORK Hematology and Oncology at [place] [phone] 05/21/2017 8:30 AM Rad Nurse, [facility] Radiation Oncology at [facility] [phone] 05/21/2017 9:00 AM Emily Choi MD Radiation Oncology at [facility] [phone] Discharge Medications: Your Medications New Medications Dose [...] AM Romy Abarca, CALLUM [facility] [place] [phone] 05/14/2017 9:00 AM NURSE, PLASTIC SURGERY Plastic Surgery [facility] [place] [phone] 05/14/2017 10:00 AM Ria Menendez MD General Surgery [facility] [place] [phone] 05/14/2017 2:00 PM [facility] IR RO[facility] 3 Radiology at [place] [phone] Please expect a call from a radiology nurse within 3 days of your exam, you will need to follow theinstructions given at that time. 05/14/2017 3:30 PM Rasheeda Trent RN; Gustavo Mota MD; [facility], SOCIAL WORK Hematology and Oncology at [place] [phone] 05/21/2017 8:[address] [facility] Radiation Oncology at [facility] [phone] 05/21/2017 9:00 AM Emily Choi MD Radiation Oncology at [facility] [phone] Future Appointments Date Time Provider Department Center 05/07/2017 10:00 AM Romy Abarca PT PT Rehab [facility] 05/14/2017 9:00 AM NURSE, PLASTIC SURGERY [facility] 4M [facility] 05/14/2017 10:00 AM Ria Menendez MD [facility] S[facility] 05/14/2017 2:00 PM [facility] IR [facility] 3 IR [facility] 05/14/2017 3:30 PM Gustavo Mota MD Leb Hem Onc [facility] 05/21/2017 8:[address] [facility] 05/21/2017 9:00 AM Emily Choi MD [facility] Primary Care Provider: Trinh Coates MD [phone] VNA: No discharge procedures on file. General [...] is during regular office hours, please call [phone]. If it is after regular office hours, or on weekends or holidays, please call [phone] and ask to speak to the Counseling Department Chair permastone applicator for Interventional Radiology. Revised 03/05/15 Drainage Record NAME: Date of Surgery: Date: Time: If more than one drain, which one: Drainage Amount (per drain) Total Amount (per drain; in 24 hours) Your care was managed by the Plastic SurgeryTeam at [facility]. If you haveany questions or concerns, please feel free to contact us. Provider Contact Information: Plastic Surgery Clinic: [facility] (after business hours): documented in this encounter [...] is during regular office hours, please call [phone]. If it is after regular office hours, or on weekends or holidays, please call [phone] and ask to speak to the Counseling Department Chair permastone applicator for Interventional Radiology. Revised 03/05/15 Drainage Record NAME: Date of Surgery: Date: Time: If more than one drain, which one: Drainage Amount (per drain) Total Amount (per drain; in 24 hours) * Patient Instructions* Alma Castillo PA - 05/01/2017 7:35 AM EDT Implant Based Reconstruction Post-op Instructions Your medications were sent electronically to the [facility] pharmacy The healing process after breast reconstruction [...] and only as needed. ??? Take an uddn-ehy-zgujzwu stool softener, such as Colace while taking [...] about scheduling, please contact our administrative officesat [phone] For clinical questions, please call our nurses at [phone] Both offices are open Sunday thru Sunday 8a - 5p. With emergencies after hours, call the hospital can bander operator at [phone] and ask for the Plastic Surgery Resident permastone applicator. Narcotics: You may be given a prescription [...] called in to our prescription line at [phone]. Narcotic renewals may be requested from 8am-4pm [...] arrival. Post-Op Plan: - Follow up with ENGINEERED WOOD DESIGNER/nurse - A nurse from clinic will call [...] Leb Surg [facility] 05/14/2017 2:00 PM [facility] IR RO[facility] 3 IR [facility] 05/14/2017 3:30 PM Gustavo Mota MD Leb Hem Onc [facility] 05/21/2017 8:30 AM [facility] 05/21/2017 9:00 AM Emily Choi MD [facility] documented in this encounter Medications at [...] flaps that failed intraoperatively and then Tissue Precision Layout Worker placement with FNG. Precautions/Restrictions: (P) fall, other [...] 0 JASMYN PRICE PT, DPT 05/01/2017 Pager: [phone] Physical Therapy Inpatient Rehabilitation Department * Diana Azevedo, ADMISSIONS EVALUATOR - 05/01/2017 6:30 AM EDT Images from [...] by intraoperative tissue demise followed by tissue project management professor placement. ?? Patient has a RIGHT breast [...] ??complicated by intraoperative demise followed by Tissue Precision Layout Worker placement. Past Medical History: Diagnosis Date ??? [...] Contact Information Primary Emergency Contact: Phillip Sandoval [facility] Mobile Relation: Spouse Behavioral Health History: No-per chart review Substance Use/Abuse: chart review -none listed Other Pertinent/Service Specific Information: None Health/Prescription Coverage: Primary Insurance: Payor: MVP / Plan: MVP NON REFERRAL / Product Type: *No Product type* / Secondary Insurance: Prescription Coverage: see above Preferred Pharmacy: [phone] [phone] [place], [place] - [address] [facility] [address] [facility] [address] [facility] [address] Other: None Primary Care Provider: Trinh Coates MD [phone] Patient/Caregiver Goals of Treatment: Safe discharge Potential [...] of care planning. IRA ARTIS RN Pager: [phone] * Shannan Galan RN - 04/30/2017 11:02 [...] from home with assist. Please page this designer/writer if you have any questions, thank you. Jasmyn Price, PT Pager #[phone] Physical Therapy Inpatient Rehabilitation * Chau Lei - 04/30/2017 8:40 AM EDT Supervisor Molding Encounter Note Patient Name: Wendy Sandoval : [id number] MR#: [id number] Admit Date: 04/26/2017 6:09 AM Hospital Day 4 days Narrative: Visited to assess need for special education tutor services Assessment: Patent stated that she was fine and didn't need to see a retail experience specialist Intervention and Outcome: None Follow-up: Supervisor Molding services remain available Time in Direct Care: 2 minutes Chau Lei 04/30/2017 * Shannan Galan, RN - 04/30/2017 8:39 AM EDT [facility] NURSING DATABASE Name: WENDY SANDOVAL Date of : 1965 AGE 51 y.o. [address]: [address] [place] [id number] (home) [phone] (work) Mobile: Telephone Information: Referring Provider: Ria Menendez REASON FOR VISIT: Laterality Right Reason for exam and clinical history: s/p breast reconstruction with bilateral tissue expanders, high drain output, RIGHT breast drain dislodged partially dislodged (still in place), need to replace to prevent fluid accumulation around project management professor Exam/Procedure requested: drain repalcement Is the patient [...] complicated by intraoperative demise followed by Tissue Precision Layout Worker placement. ?? Patient has a RIGHT breast insitu with large volume output. The drain has become partially dislodged. ?? Assessment: 51 y.o. female with breast CA to the left. Pt underwent bilateral breast reconstructionafter mastectomy with SALVADOR flaps (04/26/17); complicated by intraoperative demise followed by Tissue Precision Layout Worker placement. ?? Patient has a RIGHT breast [...] of left breast in female, estrogen receptor ygpvazxcM85.412, Z17.0 ??? Status post bilateral breast reconstruction Z98.890 Pertinent PSH: Past Surgical History: Procedure Laterality Date ??? BREAST BIOPSY Right 11/01 ??? SECTION x 2 ??? HAND SURGERY Right ??? PRG EMG, LARYNX N/A 11/02/2015 FACIAL NERVE MONITORING, SETUP LARYNGEAL performed by Valentina Lucas MD at [facility] OR ??? PRO BREAST RECONSTRUC W FREE FLAP Bilateral 04/26/2017 @BREAST RECONSTRUCTION W/ FREE FLAP, SUSAN (WRVU 42.58) [facility] ??? PRO BREAST RECONSTRUC W TISS EXPANDR Bilateral 04/26/2017 BREAST RECONSTRUCTION, IMMEDIATE OR DELAYED, W/ TISSUE CARROT BUNCHER, INCLUDING SUBSEQUENT EXPANSION (WRVU 18.5) performed by Mali Lakhani MD at [facility] OR ??? PRO EXPLORE PARATHYROID GLANDS N/A 11/02/2015 PARATHYROIDECTOMY OR EXPLORATION OF PARATHYROID(S) performed by Valentina Lucas MD at [facility] OR ? ? PRO FULL THICK GRFT TRUNK <20 SQCM Bilateral 04/26/2017 FTSG, FREE, DIR CLOSE DONOR SITE, TRUNK, 20 SQ CM OR LESS (WRVU 9.15) performed by Mali Lakhani MD at [facility] OR ??? PRO MASTECTOMY, SIMPLE, COMPLETE Bilateral 04/26/2017 MASTECTOMY, SIMPLE, COMPLETE-SUSAN (WRVU 15.85) performed by Ria Menendez MD at [facility] OR ??? PRO PARTIAL REMOVAL OF RIB Bilateral 04/26/2017 EXCISION OF RIB, PARTIAL (WRVU 7.26) performed by Mali Lakhani MD at [facility] OR ??? PRO REMOVE ARMPITS LYMPH NODES COMPLT Left 04/26/2017 LYMPHADENECTOMY, AXILLARY, COMPLETE (WRVU 13.87) performed by Ria Menendez MD at [facility] OR ??? PRO THYMECTOMY, TRANSCERVICAL N/A 11/02/2015 THYMECTOMY, TRANSCERVICAL APPROACH performed by Valentina Lucas MD at [facility] OR ??? SHOULDER SURGERY Left ??? UMBILICAL [...] as needed for Pain. 11/03/15 Nathaly Saenz, ADMISSIONS EVALUATOR * Alma Castillo PA - 04/30/2017 8:25 AM EDT PLASTIC SURGERY INPATIENT PROGRESS NOTE Attending: MALI LAKHANI Patient Location: [address] [place] [address] Hospital Admission Date: 04/26/2017 ID: Wendy Sandoval is a 51 y.o. female patient with hx of JACQUELYN on CPAP, HTN, hyperlipidemia, and breast CA to the left. Pt underwent bilateral breast reconstruction after mastectomy with SALVADOR flapscomplicated by intraoperative demise followed by Tissue Precision Layout Worker placement with FNG. POD5 S/IE: No acute [...] dilaudid for pain. Regular diet, NPO at [place] for procedure Ambulation as tolerated Pt will need VNA upon discharge Discharge planning for Sunday pending pt condition Future Appointments Date Time Provider Department Center 04/30/2017 9:00 AM [facility] PENDING IR [facility] 05/07/2017 10:00 AM Romy Abarca, PT PT Rehab [facility] 05/14/2017 9:00 AM NURSE, PLASTIC SURGERY [facility] 05/14/2017 10:00 AM Ria Menendez MD [facility] Surg [facility] 05/14/2017 3:30 PM Gustavo Mota MD [facility] Hem Onc [facility] 05/21/2017 8:[address] [facility] 05/21/2017 9:00 AM Emily Choi MD [facility] Alma Castillo PA-C Plastic Surgery Pager [phone] * Diana Azevedo, ADMISSIONS EVALUATOR - 04/30/2017 8:16 AM EDT INTERVENTIONAL RADIOLOGY [...] complicated by intraoperative demise followed by Tissue Precision Layout Worker placement. Patient has a RIGHT breast insitu with large volume output. The drain has become partially dislodged. Past Medical/Surgical History: Patient Active Problem List Diagnosis Code ??? Hypertension I10 ??? Depression F32.9 ??? Obstructive sleep apnea (adult) (pediatric) G47.33 ??? OA (osteoarthritis) M19.90 ??? Overweight(278.02) E66.3 ??? Hyperparathyroidism E21.3 ??? Malignant neoplasm of upper-outer quadrant of left breast in female, estrogen receptor tfbilhajO56.412, Z17.0 ??? Status post bilateral breast reconstruction [...] LARYNGEAL performed by Valentina Lucas MD at [facility] OR ??? PRO BREAST RECONSTRUC W FREE FLAP Bilateral 04/26/2017 @BREAST RECONSTRUCTION W/ FREE FLAP, SUSAN (WRVU 42.58) performed by Mali Lakhani MD at [facility] ??? PRO BREAST RECONSTRUC W TISS EXPANDR Bilateral 04/26/2017 BREAST RECONSTRUCTION, IMMEDIATE OR DELAYED, W/ TISSUE CARROT BUNCHER, INCLUDING SUBSEQUENT EXPANSION (WRVU 18.5) performed by Mali Lakhani MD at [facility] OR ??? PRO EXPLORE PARATHYROID GLANDS N/A 11/02/2015 PARATHYROIDECTOMY OR EXPLORATION OF PARATHYROID(S) performed by Valentina Lucas MD at [facility] OR ? ? PRO FULL THICK GRFT TRUNK <20 SQCM Bilateral 04/26/2017 FTSG, FREE, DIR CLOSE DONOR SITE, TRUNK, 20 SQ CM OR LESS (WRVU 9.15) performed by Mali Lakhani MD at [facility] OR ??? PRO MASTECTOMY, SIMPLE, COMPLETE Bilateral 04/26/2017 MASTECTOMY, SIMPLE, COMPLETE-SUSAN (WRVU 15.85) performed by Ria Menendez MD at [facility] OR ??? PRO PARTIAL REMOVAL OF RIB Bilateral 04/26/2017 EXCISION OF RIB, PARTIAL (WRVU 7.26) performed by Mali Lakhani MD at [facility] OR ??? PRO REMOVE ARMPITS LYMPH NODES COMPLT Left 04/26/2017 LYMPHADENECTOMY, AXILLARY, COMPLETE (WRVU 13.87) performed by Ria Menendez MD at [facility] OR ??? PRO THYMECTOMY, TRANSCERVICAL N/A 11/02/2015 THYMECTOMY, TRANSCERVICAL APPROACH performed by Valentina Lucas MD at [facility] OR ??? SHOULDER SURGERY Left ??? UMBILICAL [...] complicated by intraoperative demise followed by Tissue Precision Layout Worker placement. Patient has a RIGHT breast insitu [...] PROGRESS NOTE Attending: MALI LAKHANI Patient Location: [address] [place] [address] Hospital Admission Date: 04/26/2017 ID: Wendy Sandoval is a 51 y.o. female patient with hx of JACQUELYN on CPAP, HTN, hyperlipidemia, and breast CA to the left. Pt underwent bilateral breast reconstruction after mastectomy with SALVADOR flapscomplicated by intraoperative demise followed by Tissue Precision Layout Worker placement with FNG. POD3 S/IE: No acute [...] no acute distress, pleasant, cooperative, resting comfortably, PATROL SERGEANT at bedside performing sponge bath HEENT: atraumatic, [...] dilaudid for pain. Regular diet, NPO at [place] for procedure Ambulation as tolerated Pt will need VNA upon discharge Future Appointments Date Time Provider Department Center 05/07/2017 10:00 AM Romy Abarca, PT PT Rehab [facility] 05/14/2017 9:00 AM NURSE, PLASTIC SURGERY [facility] 4[facility] 05/14/2017 10:00 AM Ria Menendez MD Leb Surg [facility] 05/14/2017 3:30 PM Gustavo Mota MD Leb Hem Onc [facility] 05/21/2017 8:30 AM Rad , [facility] 05/21/2017 9:00 AM Emily Choi MD [facility] Yo Krueger MD Plastic Surgery, PGY-4 [id number] * Yo Krueger MD - 04/28/2017 11:07 AM EST PLASTIC SURGERY INPATIENT PROGRESS NOTE Attending: MALI LAKHANI Patient Location: [address] [place] [address] Hospital Admission Date: 04/26/2017 ID: Wendy Sandovla is a 51 y.o. female patient with hx of JACQUELYN on CPAP, HTN, hyperlipidemia, and breast CA to the left. Pt underwent bilateral breast reconstruction after mastectomy with SALVADOR flapscomplicated by intraoperative demise followed by Tissue Precision Layout Worker placement with FNG. POD2. S/IE: No acute [...] AM NURSE, PLASTIC SURGERY [facility] 4[facility] 05/14/2017 10:00 AM Ria Menendez MD Leb Surg [facility] 05/14/2017 3:30 PM Gustavo Mota MD Leb Hem Onc [facility] 05/21/2017 8:30 AM Rad Nurse, [facility] ST [facility] 05/21/2017 9:00 AM Emily Choi MD [facility] Yo Krueger MD Plastic Surgery, PGY-4 [...] PROGRESS NOTE Attending: MALI LAKHANI [facility] Date: 04/26/2017 ID: Wendy Sandoval is a 51 y.o. female patient with hx of JACQUELYN on CPAP, HTN, hyperlipidemia, and breast CA to the left. Pt underwent bilateral breast reconstruction after mastectomy with SALVADOR flapsthat failed intraoperatively and then Tissue Precision Layout Worker placement with FNG. POD1. S: No acute [...] 10:00 AM Romy Abarca, PT PT Rehab [facility] 05/14/2017 9:00 AM NURSE, PLASTIC SURGERY [facility] 05/14/2017 10:00 AM Ria Menendez MD Leb Surg [facility] 05/14/2017 3:30 PM Gustavo Mota MD Leb Hem Onc [facility] 05/21/2017 8:[address] [facility] 05/21/2017 9:00 AM Emily Choi MD [facility] Alma Castillo PA-C Plastic Surgery Pager [phone] * Lucina Pedersen MD - 04/27/2017 3:09 AM EST Post-Operative Check Wendy Sandoval is a 51 y.o. female s/p Procedure(s): @BREAST RECONSTRUCTION W/ FREE FLAP, SUSAN (WRVU 42.58) EXCISION OF RIB, PARTIAL (WRVU 7.26) MASTECTOMY, SIMPLE, COMPLETE-SUSAN (WRVU 15.85) MODIFIER , NIPPLE SPARING LYMPHADENECTOMY, AXILLARY, COMPLETE (WRVU 13.87) BREAST RECONSTRUCTION, IMMEDIATE OR DELAYED, W/ TISSUE CARROT BUNCHER, INCLUDING SUBSEQUENT EXPANSION (WRVU 18.5) FTSG, FREE, [...] Pt resting intermittently. 0700- Spoke with plastics process engineering intern permastone applicator regaurding pts pain 6/10 and getting worse. All pain medications utilized at this time. Per process engineering intern fine to give another 5mg now since [...] LARYNGEAL performed by Valentina Lucas MD at [facility] ??? PRO EXPLORE PARATHYROID GLANDS N/A 11/02/2015 PARATHYROIDECTOMY OR EXPLORATION OF PARATHYROID(S) performed by Valentina Luacs MD at [facility] ??? PRO THYMECTOMY, TRANSCERVICAL N/A 11/02/2015 THYMECTOMY, TRANSCERVICAL APPROACH performed by Valentina Lucas MD at [facility] OR ??? SHOULDER SURGERY Left [...] AXILLARY, COMPLETE (WRVU 13.87) [place]ioid PDMP 04/05/2017 [place] Query Date 04/26/2017 [place] QUERY DATE: 04/26/17 Risk Assessment Category: [...] 05/14/2017 9:00 AM NURSE, PLASTIC SURGERY [facility] 4[facility] Kaveh Whiteside MD Plastic Surgery Resident, PGY-7 [...] The right breast was normal. Biopsy revealed stronglyER/NM+, HER2- IDC. MRI was then obtained for [...] complicated by intraoperative demise followed by Tissue Precision Layout Worker placement. ??Patient has a RIGHT breast insitu [...] showed a space circumferentially around the tissue project management professor. A 10Fr catheter was placed over the [...] Lakhani MD - 04/30/2017 5:18 PM EDT [facility] Operative Note Patient Name: Wendy Sandoval : [id number] MR#: [id number] Case Date: 04/26/2017 - 04/27/2017 Surgeon: Surgeon(s) [...] BREAST RECONSTRUCTION, IMMEDIATE OR DELAYED, W/ TISSUE CARROT BUNCHER, INCLUDING SUBSEQUENT EXPANSION (WRVU 18.5) (Bilateral) FTSG, FREE, DIR CLOSE DONOR SITE, TRUNK, 20 SQ CM OR LESS (WRVU 9.15) (Bilateral) Anesthesia: General Estimated Blood Loss: 80 mL Implant Name Type Inv. Item Serial No. Clinic Lead Lot No. LRB No. Used Action ZANJERO,GOLD,3.0MM ([id number]) - [id number] IMPLANTS ZANJERO,GOLD,3.0MM ([id number]) [employer] - - [id number] Left 1 Implanted and Explanted ZANJERO,GOLD,3.0MM ([id number]) - [id number] IMPLANTS ZANJERO,GOLD,3.0MM ([id number]) [employer] - - [id number] Left 1 Implanted and Explanted ZANJERO,GOLD,3.0MM ([id number]) - [id number] IMPLANTS ZANJERO,GOLD,3.0MM ([id number]) [employer] - - [id number] Right 1 Implanted and Explanted EXPAND,TISS,ARTOURA,600CC ([id number]) (AUTOREQ) - [id number] IMPLANTS EXPAND,TISS,ARTOURA,600CC ([id number]) (AUTOREQ) [id number] [employer] - [id number] Right 1 Implanted EXPAND,TISS,ARTOURA,600CC ([id number]) (AUTOREQ) - [id number] IMPLANTS EXPAND,TISS,ARTOURA,600CC ([id number]) (AUTOREQ) [id number] [employer] - [id number] Left 1 Implanted Specimens removed during surgery: Order Name Source Comment Collection Info Order Time SPECIMEN TO PATHOLOGY Short Stitch=Superior, Long Stitch=Lateral, Single Stitch=Base of Nipple. 90203 Left Breast Cancer Left Breast Yes Excision 04/26/2017 10:52 AM Time removed from patient: 10:50 AM SPECIMEN TO PATHOLOGY 00545 Left Breast Cancer Left Axillary Dissection Yes [...] performed a coupled anastomoses with 3 mm assembler dry cell and battery between the superficial inferior epigastric vein andthe [...] anastomosis with a 3 mm synovis micro assembler dry cell and battery between the superficial inferior epigastric vein and [...] cc of methylene blue impregnated saline. The project management professor tabs were sewn to the pectoralis muscle [...] our donor defect inthe abdomen over #19 [place] Juliano drains. Closure was performed in multiple [...] OUTCOME EVALUATION: * Plan of Care - Comse Coleman, PT - 04/29/2017 1:10 PM EDT Physical Therapy Treatment Treatment Number PT: (P) 3 Pertinent History of Current Problem: (P) 51 y.o. female with PMH including JACQUELYN on CPAP, HTN, hyperlipidemia, and breast CA (L) - newly diagnosed admitted on 04/26/[address] Lakhani, Mali Pinto MD for bilateral breast reconstruction after mastectomy with SALVADOR flaps that failed intraoperatively and then Tissue Precision Layout Worker placement with FNG. Pt reported that her [...] assist for gait. Cosme Coleman, PT Pager: [phone] Inpatient Physical Therapy 04/29/17 1155 Rehab Evaluation [...] flaps that failed intraoperatively and then Tissue Precision Layout Worker placement with FNG. Precautions/Restrictions fall;other (see comments) [...] Assessment/Treatment (Group);Transfer Assessment/Treatment (Group) Bed Mobility Assessment/Treatment Fhcnaw-pu-Dvt [place] (Bed Mobility) minimum assist (75% patient effort) Sau-mo-Crryyp [place] (Bed Mobility) minimum assist (75% patient effort) Impairments (Bed Mobility) pain Comment (Bed Mobility) Slow transition Transfer Assessment/Treatment [place] (Sit-Stand Transfers) contact guard assist [place] (Stand-Sit Transfers) contact guard assist Xlh-Lbgup-Sgl Assistive Device (Transfers) rolling walker [place] (Toilet Transfers) (SBA) Assistive Device (Toilet Transfers) grab bar;rolling walker Impairments (Transfers) pain;strength decreased Comment (Transfers) Pt had difficulty with transition secondary to pain. Gait Assessment/Treatment [place] (Gait) (SBA) Assistive Device (Gait) rolling walker Distance in Feet (Gait) 10ft x 2 Gait Pattern Analysis swing-through gait Deviations (Gait) radha decreased;step length decreased Impairments (Gait) pain Comment (Gait) Pt limited by pain but steady with walking Stairs Assessment/Treatment Number of Stairs (Stairs) 1 Handrail Location (Stairs) none [place] (Stairs) moderate assist (50% patient effort) Impairments (Stairs) pain;strength decreased Comment (Stairs) Hand hold assist. Pt reports it felt like her back was going to give out but that her pain was tolerable. Motor Skills/Interventions Additional Documentation Balance Skills Training (Group) Balance Skills Training Sitting Balance: Static good balance Sitting Balance: Dynamic good balance Kir-su-Kgpvb Balance fair balance Standing Balance: Static fair [...] to sit/sit to supine Bed Mobility Goal, [place] Level independent Bed Mobility Goal, Date Goal Reviewed 04/29/17 Bed Mobility Goal, Outcome Achieved goal ongoing Gait Training Goal Gait Training Goal, Date Established 04/28/17 Gait Training Goal, Time to Achieve by discharge Gait Training Goal, [place] Level independent Gait Training Goal, Assist Device walker, rolling Gait Training Goal, Distance to Achieve 100ft Gait Training Goal, Additional Goal Ascend/descent 2 steps Gait Training Goal, Date Goal Reviewed 04/29/17 Gait Training Goal, Outcome goal ongoing Transfer Training Goal Transfer Training Goal, Date Established 04/28/17 Transfer Training Goal, Time to Achieve by discharge Transfer Training Goal, Activity Type oxq-yw-ksabb/qvelj-kf-fns;qjc-dl-zprbw/ioxdu-ks-qlo Transfer Train Goal, [place] Level independent Transfer Training Goal, Assist Device [...] newly diagnosed admitted on 04/26/[address] aLkhani, Mali Pinto MD for bilateral breast reconstruction after mastectomy with SALVADOR flaps that failed intraoperatively and then Tissue Precision Layout Worker placement with FNG. Precautions/Restrictions: fall, other (see [...] assist with gait Cosme Coleman, PT Pager: [phone] Inpatient Physical Therapy 04/28/17 1105 Rehab Evaluation [...] flaps that failed intraoperatively and then Tissue Precision Layout Worker placement with FNG. Precautions/Restrictions fall;other (see comments) [...] Assessment/Treatment (Group);Transfer Assessment/Treatment (Group) Bed Mobility Assessment/Treatment Hgzgxb-im-Wdd [place] (Bed Mobility) minimum assist (75% patient effort) Xqh-wi-Xxnaox [place] (Bed Mobility) minimum assist (75% patient effort) Impairments (Bed Mobility) pain;strength decreased Comment (Bed Mobility) Slow transitions Transfer Assessment/Treatment [place] (Sit-Stand Transfers) contact guard assist [place] (Stand-Sit Transfers) contact guard assist Oum-Dvixf-Iqc Assistive Device (Transfers) rolling walker [place] (Toilet Transfers) (SBA) Assistive Device (Toilet Transfers) grab bar;rolling walker Impairments (Transfers) pain;strength decreased Comment (Transfers) Pt limited by pain. Gait Assessment/Treatment [place] (Gait) (SBA) Assistive Device (Gait) rolling walker [...] good balance Sitting Balance: Dynamic good balance Gee-gd-Xrqzx Balance fair balance Standing Balance: Static fair [...] to sit/sit to supine Bed Mobility Goal, [place] Level independent Gait Training Goal Gait Training Goal, Date Established 04/28/17 Gait Training Goal, Time to Achieve by discharge Gait Training Goal, [place] Level independent Gait Training Goal, Assist Device walker, rolling Gait Training Goal, Distance to Achieve 100ft Gait Training Goal, Additional Goal Ascend/descent 2 steps Transfer Training Goal Transfer Training Goal, Date Established 04/28/17 Transfer Training Goal, Time to Achieve by discharge Transfer Training Goal, Activity Type rnz-bg-twapq/lapnl-jl-fhh;tda-bn-cahea/bnvvc-ij-ecg Transfer Train Goal, [place] Level independent Transfer Training Goal, Assist Device [...] promoted;ambulation promoted Pain Management Interventions analgesic trial initiated;clirqf-nge-tizwr dosing utilized;pain management plan reviewed with patient/caregiver Safety Interventions Medication Review/Management medications reviewed Intervention: Mutually Develop/Implement Acute Pain Management Plan 04/27/171822 Manage Acute Burn Pain Pain Management Interventions analgesic trial initiated;mhrlqq-fnc-ygcwf dosing utilized;pain management plan reviewed with patient/caregiver [...] 04/27/17 182 Skin Integrity Impairment, Risk/Actual (Infant) Skin Integrity [...] agreement. Treviño pulled at 1700, DTV between 5118-2356. PLAN MOVING FORWARD: Continue to medicate for [...] flaps that failed intraoperatively and then Tissue Precision Layout Worker placement with FNG. Past Medical History: Diagnosis [...] LARYNGEAL performed by Valentina Lucas MD at [facility] OR ??? PRO BREAST RECONSTRUC W FREE FLAP Bilateral 04/26/2017 @BREAST RECONSTRUCTION W/ FREE FLAP, SUSAN (WRVU 42.58) performed [facility] Mali [facility] ??? PRO BREAST RECONSTRUC W TISS EXPANDR Bilateral 04/26/2017 BREAST RECONSTRUCTION, IMMEDIATE OR DELAYED, W/ TISSUE CARROT BUNCHER, INCLUDING SUBSEQUENT EXPANSION (WRVU 18.5) performed by Mali Lakhani MD at [facility] OR ??? PRO EXPLORE PARATHYROID GLANDS N/A 11/02/2015 PARATHYROIDECTOMY OR EXPLORATION OF PARATHYROID(S) performed by Valentina Lucas MD at [facility] OR ? ? PRO FULL THICK GRFT TRUNK <20 SQCM Bilateral 04/26/2017 FTSG, FREE, DIR CLOSE DONOR SITE, TRUNK, 20 SQ CM OR LESS (WRVU 9.15) performed by Mali Lakhani MD at [facility] OR ??? PRO MASTECTOMY, SIMPLE, COMPLETE Bilateral 04/26/2017 MASTECTOMY, SIMPLE, COMPLETE-SUSAN (WRVU 15.85) performed by Ria Menendez MD at [facility] OR ??? PRO PARTIAL REMOVAL OF RIB Bilateral 04/26/2017 EXCISION OF RIB, PARTIAL (WRVU 7.26) performed by Mali Lakhani MD at [facility] OR ??? PRO REMOVE ARMPITS LYMPH NODES COMPLT Left 04/26/2017 LYMPHADENECTOMY, AXILLARY, COMPLETE (WRVU 13.87) performed by Ria Menendez MD at [facility] OR ??? PRO THYMECTOMY, TRANSCERVICAL N/A 11/02/2015 THYMECTOMY, TRANSCERVICAL APPROACH performed by Valentina Lucas MD at [facility] OR ??? SHOULDER SURGERY Left ??? UMBILICAL [...] flaps that failed intraoperatively and then Tissue Precision Layout Worker placement with FNG. Precautions Comments Full code; [...] (Bed Mobility) bed rails;draw sheet (HOB raised) Uqsflp-gv-Nwe [place] (Bed Mobility) minimum assist (75% patient effort);verbal cues required Lhb-au-Xutipk [place] (Bed Mobility) moderate assist (50% patient effort);verbal cues required Safety Issues (Bed Mobility) impaired trunk control for bed mobility Impairments (Bed Mobility) pain;balance impaired;strength decreased;ROM (range of motion) decreased (functional endurance limited post op ) Comment (Bed Mobility) performed with increased time Transfer Assessment/Treatment [place] (Sit-Stand Transfers) minimum assist (75% patient effort);2 person assist required [place] (Stand-Sit Transfers) minimum assist (75% patient effort);2 person assist required Ojg-Bghuq-Yuo Assistive Device (Transfers) ((B) Hand hold support) Impairments (Transfers) pain;balance impaired;strength decreased;ROM (range of motion) decreased (functional endurance limited post op) Comment (Transfers) performed with increased time; Performed marching at EOB x1 min, unable to progress gait 2/2 pain however anticipate with rehearsal would demonstrate improved tolerance. Gait Assessment/Treatment [place] (Gait) not appropriate to assess (limited by [...] of left breast in female, estrogen receptor anyljkpvW28.412, Z17.0 ??? Status post bilateral breast reconstruction [...] this evaluation. JASMYN PRICE PT, DPT Pager: [phone] Inpatient Physical Therapy * Op Note - Alyx Estrella MD - 04/27/2017 1:58 PM EST [facility] Operative Note Patient Name: Wendy Sandoval : [id number] MR#: [id number] Case Date: 04/26/2017 - 04/27/2017 Surgeon: Surgeon(s) [...] BREAST RECONSTRUCTION, IMMEDIATE OR DELAYED, W/ TISSUE CARROT BUNCHER, INCLUDING SUBSEQUENT EXPANSION (WRVU 18.5) (Bilateral) FTSG, [...] size. This was then reinforced with 2 lbrfby-up-qkcrutrmvqoc also in 4-0 PDS. The leak, although [...] Oliverio Machado - 04/27/2017 3:00 AM EST [facility] Department of Thoracic Surgery Inpatient Consultation Note [address] [place] [address] FAX: Patient Name: Wendy Sandoval Patient : 1965 Patient Patient Location: [address] This consultation request was made by: MALI LAKHANI Consulting thoracic surgery attending: Alyx Estrella MD HPI: Wendy Sandoval is a 51 y.o. 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 She presented to [facility] on 04/26/2017 for a scheduled bilateral mastectomy [...] of left breast in female, estrogen receptor jkfyxxwt50/10/2018 ??? Hyperparathyroidism 11/02/2015 ??? Obstructive sleep apnea [...] LARYNGEAL performed by Valentina Lucas MD at [facility] OR ??? PRO EXPLORE PARATHYROID GLANDS N/A 11/02/2015 PARATHYROIDECTOMY OR EXPLORATION OF PARATHYROID(S) performed by Valentina Lucas MD at [facility] OR ??? PRO THYMECTOMY, TRANSCERVICAL N/A 11/02/2015 THYMECTOMY, TRANSCERVICAL APPROACH performed by Valentina Lucas MD at [facility] OR ??? SHOULDER SURGERY Left [...] Admission (Current) from 04/26/2017 in PACU at [facility] Office Visit from 04/05/2017 in Plastic Surgery at [place] Weight 76.7 kg (169 lb) 1 04/26/2017 [...] 51 y.o. female with PMHx significant for ER/NM+ HER2- invasive ductal carcinoma s/p bilateral mastectomy [...] Stratton MD 04/27/2017 Thoracic Surgery Service Pager [phone] Associated attestation - Alyx Estrella MD - [...] Whiteside MD - 04/27/2017 12:27 AM EST [facility] Brief Operative Note Patient Name: Wendy Sandoval : 1965 MR#: [id number] Case Date: 04/26/2017 Surgeon: Surgeon(s) and Role: MD Ammy - Primary MD Stevo Preoperative diagnosis: Left breast cancer Postoperative diagnosis: Left breast cancer Procedure(s): @BREAST RECONSTRUCTION W/ FREE FLAP, SUSAN (WRVU 42.58) EXCISION OF RIB, PARTIAL (WRVU 7.26) BREAST RECONSTRUCTION, IMMEDIATE OR DELAYED, W/ TISSUE CARROT BUNCHER, INCLUDING SUBSEQUENT EXPANSION (WRVU 18.5) FTSG, FREE, DIR CLOSE DONOR SITE, TRUNK, 20 SQ CM OR LESS (WRVU 9.15) Anesthesia: gen Estimated Blood Loss: 100cc Specimens removed during surgery: see Dr Menendez's portion of case Drains: 19F x 2 abdomen, 15F b/l breast Surgical Closure: prolene Implant(s): Implant Name Type Inv. Item Serial No. Clinic Lead Lot No. LRB No. Used Action ZANJERO,GOLD,3.0MM ([id number]) - [id number] IMPLANTS ZANJERO,GOLD,3.0MM (6003869) [employer] - - [id number] Left 1 Implanted and Explanted ZANJERO,GOLD,3.0MM ([id number]) - [id number] IMPLANTS ZANJERO,GOLD,3.0MM ([id number]) [employer] - - [id number] Left 1 Implanted and Explanted ZANJERO,GOLD,3.0MM (7234574) - [id number] IMPLANTS ZANJERO,GOLD,3.0MM (4463779) [employer] - - [id number] Right 1 Implanted and Explanted EXPAND,TISS,ARTOURA,600CC ([id number]) (AUTOREQ) - [id number] IMPLANTS EXPAND,TISS,ARTOURA,600CC ([id number]) (AUTOREQ) [id number] [employer] [facility] [id number] Right 1 Implanted EXPAND,TISS,ARTOURA,600CC ([id number]) (AUTOREQ) - [id number] IMPLANTS EXPAND,TISS,ARTOURA,600CC ([id number]) (AUTOREQ) [id number] [facility]1 [id number] Left 1 Implanted Disposition: awakened from anesthesia, [...] 10:00 AM Romy Abarca PT PT Rehab [facility] 05/14/2017 9:00 AM NURSE, PLASTIC SURGERY [facility] [address] [place] [address] CLIN 05/14/2017 10:00 AM Ria Menendez MD [facility] 05/14/2017 3:30 PM Gustavo Mota MD [facility] Hem Onc [facility] 05/21/2017 8:[address] [facility] 05/21/2017 9:00 AM Emily Choi MD [facility] [place] [facility] Kaveh Whiteside MD Plastic Surgery, PGY-7 * Op Note - Ria Menendez MD - 04/26/2017 1:02 PM EST [facility] Operative Note Patient Name: Wendy Sandoval : [id number] MR#: [id number] Case Date: 04/26/2017 Surgeon: Surgeon(s) and Role: [...] Stitch=Superior, Long Stitch=Lateral, Single Stitch=Base of Nipple. 36336 Left Breast Cancer Left Breast Yes Excision 04/26/2017 10:52 AM Time removed from patient: 10:50 AM SPECIMEN TO PATHOLOGY 37999 Left Breast Cancer Left Axillary Dissection Yes [...] 01/22/2024 10:30 AM EST Appointment Mammography/[place] [address] Ladi Mendosa MD [facility] [place] [address] 01/30/2024 11:30 AM EST Office Visit Dermatology at [place] [address] [place] [address] Nilda Luis MD [facility] [place] [address] 02/14/2024 7:30 AM EST Appointment Radiology at [facility] [place] [id number] Joanna Watts MD [facility] [address] [place] [address] documented as of this encounter Procedures Procedure [...] BREAST RECONSTRUCTION, IMMEDIATE OR DELAYED, W/ TISSUE CARROT BUNCHER, INCLUDING SUBSEQUENT EXPANSION (WRVU 14.84) 04/26/2017 7:40 [...] 3:39 AM EDT) Neutrophil % 63.4 % [facility] Neutrophil Absolute 10.92(H) 1.70 - 6.10 x10(3)/ L [facility] Lymph % 16.8 % [facility] Lymphocytes Abs 2.9 0.9 - 3.2 x10(3)/[facility] Monocyte % 9.8 % [facility] Monocyte Abs 1.7(H) 0.3 - 0.9 x10(3)/[facility] Eos % 5.1 % [facility] Eosinophils Abs 0.9(H) 0.0 - 0.4 x10(3)/[facility] Basophil % 1.5 % [facility] Baso Absolute 0.2(H) 0.0 - 0.1 x10(3)/[facility] Immature Gran % 3.40 % [facility] Comment: Immature granulocytes(IG's)percentage and absolute count will include metamyelocytes, myelocytes, and promyelocytes. Blood smears from CBCs yielding IG's will be scanned manually for concordance. If this scan disagrees with the automated IG or if promyelocytes are noted, a manual differential will be performed. Immature Gran Absolute 0.59(H) 0.00 - 0.04 x10(3)/[facility] Blood specimen (specimen) 05/01/2017 3:39 AM EDT 05/01/2017 3:51 AM EDT Narrative Resulting Agency Comment Spec In Lab Yo Krueger MD HEMATOLOGY ORDERABLE S [facility] [place] [address] * (ABNORMAL) Hemogram (05/01/2017 3:39 AM EDT) White Blood Cell 17.2(H) 4.0 - 9.5 x10(3)/[facility] Red Blood Cell 3.87(L) 4.00 - 5.21 x10(6)/[facility] Hemoglobin 12.2 11.7 - 15.5 gm/dL [facility] Hematocrit 36.4 35.7 - 45.8 % [facility] Mean Cell Volume 94.1 82.6 - 94.4 [facility] Mean Cell Hemoglobin 31.5 27.1 - 32.0 pg [facility] Mean Cell Hemoglobin Concentration 33.5 31.7 - 35.0 gm/dL [facility] Platelet 402(H) 145 - 357 x10(3)/mc L [facility] RDW Standard Deviation 47.7(H) 37.0 - 46.0 [facility] RDW coefficient of variation 14.0 11.5 - 14.1 % [facility] Mean Platelet Volume 8.9 7.6 - 12.9 [facility] NRBC% auto 0.0 % [facility] NRBC Absolute 0.000 0.000 - 0.000 x10(3)/ L [facility] Blood specimen (specimen) 05/01/2017 3:39 AM EDT 05/01/2017 3:51 AM EDT Narrative Resulting Agency Comment Spec In Lab Yo Krueger MD HEMATOLOGY ORDERABLE S Performing Organization Address City/[facility] Co de Phone Number [facility] [place] [address] * Magnesium (05/01/2017 3:39 AM EDT) Magnesium 0.78 0.69 - 1.07 mmol/L [facility] Blood specimen (specimen) 05/01/2017 3:39 AM EDT 05/01/2017 3:51 AM EDT Narrative Resulting Agency Comment Spec In Lab Mali Lakhani MD CHEMISTRY ORDERABLES Performing Organization Address City/[facility]/ZIP Co de Phone Number [facility] [place] [address] * (ABNORMAL) Basic Metabolic Panel (non-fasting) (05/01/2017 3:39 AM EDT) Glucose 95 65 - 199 mg/dL [facility] Comment:Diabetes: >=200 mg/d L plus symptoms Blood Urea Nitrogen 17 8 - 18 mg/dL [facility] [...] - 10.5 mg/dL [facility] Est Glomerular Filtration Rate 57(L) >=60 [facility] Comment: The reported eGFR should be multiplied by 1.2 for patients. The MDRD is not an appropriate measure of renal function for patients with body mass extremes or in patients with acute kidney failure. http://[employer]/DHnkdep http://[employer]/DHMCnkf Blood specimen (specimen) 05/01/2017 3:39 AM EDT 05/01/2017 3:51 AM EDT Narrative Resulting Agency Comment Spec In Lab Mali Lakhani MD CHEMISTRY ORDERABLES [facility] [place] [address] * IR Breast Drain Placement (04/30/2017 11:18 [...] ??complicated by intraoperative demise followed by Tissue Precision Layout Worker placement. ??Patient has a RIGHT breast insitu [...] showed a space circumferentially around the tissue project management professor. A 10Fr catheter was placed over the [...] 3:27 AM EDT) Neutrophil % 61.8 % [facility] Neutrophil Absolute 9.05(H) 1.70 - 6.10 x10(3)/[facility] Lymph % 19.6 % [facility] Lymphocytes Abs 2.9 0.9 - 3.2 x10(3)/[facility] Monocyte % 9.3 % [facility] Monocyte Abs 1.4(H) 0.3 - 0.9 x10(3)/[facility] Eos % 5.3 % [facility] Eosinophils Abs 0.8(H) 0.0 - 0.4 x10(3)/[facility] Basophil % 1.3 % [facility] Baso Absolute 0.2(H) 0.0 - 0.1 x10(3)/[facility] Immature Gran % 2.70 % [facility] Comment: Immature granulocytes(IG's)percentage and absolute count will include metamyelocytes, myelocytes, and promyelocytes. Blood smears from CBCs yielding IG's will be scanned manually for concordance. If this scan disagrees with the automated IG or if promyelocytes are noted, a manual differential will be performed. Immature Gran Absolute 0.40(H) 0.00 - 0.04 x10(3)/[facility] Blood specimen (specimen) 04/30/2017 3:27 AM EDT 04/30/2017 3:47 AM EDT Narrative Resulting Agency Comment Spec In Lab Yo Krueger MD HEMATOLOGY ORDERABLE S [facility] [place] [address] * (ABNORMAL) Hemogram (04/30/2017 3:27 AM EDT) White Blood Cell 14.7(H) 4.0 - 9.5 x10(3)/mc L [facility] Red Blood Cell 3.62(L) 4.00 - 5.21 x10(6)/mc L [facility] Hemoglobin 11.5(L) 11.7 - 15.5 gm/dL [facility] Hematocrit 34.5(L) 35.7 - 45.8 % [facility] Mean Cell Volume 95.3(H) 82.6 - 94.4 fL [facility] Mean Cell Hemoglobin 31.8 27.1 - 32.0 pg [facility] Mean Cell Hemoglobin Concentration 33.3 31.7 - 35.0 gm/dL [facility] Platelet 350 145 - 357 x10(3)/[facility] RDW Standard Deviation 49.0(H) 37.0 - 46.0 [facility] RDW coefficient of variation 13.9 11.5 - 14.1 % [facility] Mean Platelet Volume 9.1 7.6 - 12.9 [facility] NRBC% auto 0.0 % [facility] NRBC Absolute 0.000 0.000 - 0.000 x10(3)/[facility] Blood specimen (specimen) 04/30/2017 3:27 AM EDT 04/30/2017 3:47 AM EDT Narrative Resulting Agency Comment Spec In Lab Yo Krueger MD HEMATOLOGY ORDERABLE S [facility] [place] [address] * Magnesium (04/30/2017 3:27 AM EDT) Magnesium 0.84 0.69 - 1.07 mmol/L [facility] Blood specimen (specimen) 04/30/2017 3:27 AM EDT 04/30/2017 3:47 AM EDT Narrative Resulting Agency Comment Spec In Lab Mlai Lakhani MD CHEMISTRY ORDERABLES Performing Organization Address City/[facility]/ZIP Co de Phone Number [facility] [place] [address] * (ABNORMAL) Basic Metabolic Panel (non-fasting) (04/30/2017 3:27 AM EDT) Glucose 99 65 - 199 mg/dL [facility] Comment:Diabetes: >=200 mg/d L plus symptoms Blood Urea Nitrogen 16 8 - 18 mg/dL [facility] mmol/L [facility] Carbon Dioxide 26 22 - 31 mmol/L [facility] Anion Gap 13 5 - 15 mmol/L [facility] Calcium 8.3(L) 8.5 - 10.5 mg/dL [facility] Est Glomerular Filtration Rate 58(L) >=60 [facility] Comment: The reported eGFR should be multiplied by 1.2 for patients. The MDRD is not an appropriate measure of renal function for patients with body mass extremes or in patients with acute kidney failure. http://[employer]/DHnkdep http://[employer]/DHMCnkf Blood specimen (specimen) 04/30/2017 3:27 AM EDT 04/30/2017 3:47 AM EDT Narrative Resulting Agency Comment Spec In Lab Mali Lakhani MD CHEMISTRY ORDERABLES Performing Organization Address City/[facility]/ZIP Co de Phone Number [facility] [place] [address] * (ABNORMAL) Differential, Automated (04/29/2017 8:09 AM EDT) Pathologist [facility] Neutrophil % 70.4 % [facility] Neutrophil Absolute 11.03(H) 1.70 - 6.10 x10(3)/ L [facility] Lymph % 14.7 % [facility] Lymphocytes Abs 2.3 0.9 - 3.2 x10(3)/[facility] Monocyte % 9.1 % [facility] Monocyte Abs 1.4(H) 0.3 - 0.9 x10(3)/[facility] Eos % 3.7 % [facility] Eosinophils Abs 0.6(H) 0.0 - 0.4 x10(3)/[facility] Basophil % 1.0 % [facility] Baso Absolute 0.2(H) 0.0 - 0.1 x10(3)/[facility] Immature Gran % 1.10 % [facility] Comment: Immature granulocytes(IG's)percentage and absolute count will include metamyelocytes, myelocytes, and promyelocytes. Blood smears from CBCs yielding IG's will be scanned manually for concordance. If this scan disagrees with the automated IG or if promyelocytes are noted, a manual differential will be performed. Immature Gran Absolute 0.18(H) 0.00 - 0.04 x10(3)/ L [facility] Blood specimen (specimen) 04/29/2017 8:09 AM EDT 04/29/2017 8:16 AM EDT Narrative Resulting Agency Comment Spec In Lab Yo Krueger MD HEMATOLOGY ORDERABLE S [facility] [place] [address] * (ABNORMAL) Hemogram (04/29/2017 8:09 AM EDT) Pathologist [facility] [place] Blood Cell 15.7(H) 4.0 - 9.5 x10(3)/ L [facility] Red Blood Cell 3.70(L) 4.00 - 5.21 x10(6)/mc L [facility] Hemoglobin 11.8 11.7 - 15.5 gm/dL [facility] Hematocrit 34.6(L) 35.7 - 45.8 % [facility] Mean Cell Volume 93.5 82.6 - 94.4 fL [facility] Mean Cell Hemoglobin 31.9 27.1 - 32.0 pg [facility] Mean Cell Hemoglobin Concentration 34.1 31.7 - 35.0 gm/dL [facility] Platelet 300 145 - 357 x10(3)/[facility] RDW Standard Deviation 47.6(H) 37.0 - 46.0 fL [facility] RDW coefficient of variation 13.9 11.5 - 14.1 % [facility] Mean Platelet Volume 9.2 7.6 - 12.9 fL [facility] NRBC% auto 0.0 % [facility] NRBC Absolute 0.000 0.000 - 0.000 x10(3)/[facility] Blood specimen (specimen) 04/29/2017 8:09 AM EDT 04/29/2017 8:16 AM EDT Narrative Resulting Agency Comment Spec In Lab Yo Krueger MD HEMATOLOGY ORDERABLE S [facility] [place] [address] * Magnesium (04/29/2017 8:09 AM EDT) Magnesium 0.88 0.69 - 1.07 mmol/L [facility] Blood specimen (specimen) 04/29/2017 8:09 AM EDT 04/29/2017 8:16 AM EDT Narrative Resulting Agency Comment Spec In Lab Mali Lakhani MD CHEMISTRY ORDERABLES Performing Organization Address City/[facility]/ZIP Co de Phone Number [facility] [place] [address] * (ABNORMAL) Basic Metabolic Panel (non-fasting) (04/29/2017 8:09 AM EDT) Glucose 114 65 - 199 mg/dL [facility] Comment:Diabetes: >=200 mg/d L plus symptoms Blood Urea Nitrogen 16 8 - 18 mg/dL [facility] [...] mmol/L [facility] Carbon Dioxide 25 22 - 31 mmol/L [facility] Anion Gap 13 5 - 15 mmol/L [facility] Calcium 7.9(L) 8.5 - 10.5 mg/dL [facility] Est Glomerular Filtration Rate >60 >=60 [facility] Comment: The reported eGFR should be multiplied by 1.2 for patients. The MDRD is not an appropriate measure of renal function for patients with body mass extremes or in patients with acute kidney failure. http://[employer]/DHnkdep http://[employer]com/DHMCnkf Blood specimen (specimen) 04/29/2017 8:09 AM EDT 04/29/2017 8:16 AM EDT Narrative Resulting Agency Comment Spec In Lab Mali Lakhani MD CHEMISTRY ORDERABLES Performing Organization Address City/[facility]/ZIP [place] [address] * (ABNORMAL) Differential, Automated (04/28/2017 4:26 AM EST) Pathologist [facility] Neutrophil % 78.7 % [facility] Neutrophil Absolute 14.15(H) 1.70 - 6.10 x10(3)/mc L [facility] Lymph % 8.4 % [facility] Lymphocytes Abs 1.5 0.9 - 3.2 x10(3)/ L [facility] Monocyte % 11.2 % [facility] Monocyte Abs 2.0(H) 0.3 - 0.9 x10(3)/ L [facility] Eos % 0.4 % [facility] Eosinophils Abs 0.1 0.0 - 0.4 x10(3)/[facility] Basophil % 0.4 % [facility] Baso Absolute 0.1 0.0 - 0.1 x10(3)/ L [facility] Immature Gran % 0.90 % [facility] Comment: Immature granulocytes(IG's)percentage and absolute count will include metamyelocytes, myelocytes, and promyelocytes. Blood smears from CBCs yielding IG's will be scanned manually for concordance. If this scan disagrees with the automated IG or if promyelocytes are noted, a manual differential will be performed. Immature Gran Absolute 0.17(H) 0.00 - 0.04 x10(3)/ L [facility] Blood specimen (specimen) 04/28/2017 4:26 AM EST 04/28/2017 4:50 AM EST Narrative Resulting Agency Comment Spec In Lab Yo Krueger MD HEMATOLOGY ORDERABLE S [facility] [place] [address] * (ABNORMAL) Hemogram (04/28/2017 4:26 AM EST) [facility] [place] Blood Cell 18.0(H) 4.0 - 9.5 x10(3)/ L [facility] Red Blood Cell 3.43(L) 4.00 - 5.21 x10(6)/mc L [facility] Hemoglobin 10.7(L) 11.7 - 15.5 gm/dL [facility] Hematocrit 31.6(L) 35.7 - 45.8 % [facility] Mean Cell Volume 92.1 82.6 - 94.4 fL [facility] Mean Cell Hemoglobin 31.2 27.1 - 32.0 pg [facility] Mean Cell Hemoglobin Concentration 33.9 31.7 - 35.0 gm/dL [facility] Platelet 289 145 - 357 x10(3)/[facility] RDW Standard Deviation 46.9(H) 37.0 - 46.0 fL [facility] RDW coefficient of variation 13.8 11.5 - 14.1 % [facility] Mean Platelet Volume 9.4 7.6 - 12.9 fL [facility] NRBC% auto 0.0 % [facility] NRBC Absolute 0.000 0.000 - 0.000 x10(3)/[facility] Blood specimen (specimen) 04/28/2017 4:26 AM EST 04/28/2017 4:50 AM EST Narrative Resulting Agency Comment Spec In Lab Yo Krueger MD HEMATOLOGY ORDERABLE S [facility] [place] [address] * (ABNORMAL) Magnesium (04/28/2017 4:26 AM EST) Magnesium 1.20(H) 0.69 - 1.07 mmol/L [facility] Comment:result rechecked-imm Blood specimen (specimen) 04/28/2017 4:26 AM EST 04/28/2017 4:50 AM EST Narrative Resulting Agency Comment Spec In Lab Mali Lakhani MD CHEMISTRY ORDERABLES Performing Organization Address City/[facility]/ZIP Co de Phone Number [facility] [place] [address] * (ABNORMAL) Basic Metabolic Panel (non-fasting) (04/28/2017 4:26 AM EST) Glucose 149 65 - 199 mg/dL [facility] Comment:Diabetes: >=200 mg/d L plus symptoms Blood Urea Nitrogen 29(H) 8 - 18 mg/dL [facility] [...] mmol/L [facility] Carbon Dioxide 23 22 - 31 mmol/L [facility] Anion Gap 14 5 - 15 mmol/L [facility] Calcium 7.3(L) 8.5 - 10.5 mg/dL [facility] Est Glomerular Filtration Rate 53(L) >=60 [facility] Comment: The reported eGFR should be multiplied by 1.2 for patients. The MDRD is not an appropriate measure of renal function for patients with body mass extremes or in patients with acute kidney failure. http://[employer]/DHnkdep http://[employer]/DHMCnkf Blood specimen (specimen) 04/28/2017 4:26 AM EST 04/28/2017 4:50 AM EST Narrative Resulting Agency Comment Spec In Lab Mali Lakhani MD CHEMISTRY ORDERABLES [facility] [place] [address] * EKG 12 Lead (04/27/2017 3:45 PM EST) Ventricular rate 101 BPM MUSE SYSTEM Atrial Rate 101 BPM MUSE SYSTEM P-R Interval 164 ms MUSE SYSTEM QRS Duration 84 ms MUSE SYSTEM Q-T Interval 362 ms MUSE SYSTEM QTC Calculated (Bezet) 469 ms MUSE SYSTEM Calculated P [place] 36 degrees MUSE SYSTEM Calculated R [place] -8 degrees MUSE SYSTEM Calculated T [place] 47 degrees MUSE SYSTEM INTERPRETATION Sinus tachycardia Nonspecific T wave abnormality Abnormal ECG When compared with ECG of 02-NOV-2015 13:47, Nonspecific T wave abnormality, worse in Inferior leads QT has shortened Confirmed by MD ROYER, MALI ([id number]) on 04/28/2017 4:17:57 PM MUSE SYSTEM 04/27/2017 3:45 PM EST 04/28/2017 4:17 PM EST Mali Lakhani MD ECG ORDERABLES Performing Organization Address [facility] Co de Phone Number MUSE SYSTEM * XR Chest PA or [...] at 04/27/2017 3:54 PM Mali Lakhani MD [facility] DX ORDERABLES * XR Chest PA or [...] Scan, Peripheral Blood (04/27/2017 1:00 AM EST) Pathologist [facility] Plat estimate Normal [facility] RBC Morphology Abnormal [facility] [place] Cells 1-5 /HPF [facility] Blood specimen (specimen) 04/27/2017 1:00 AM EST 04/27/2017 1:20 AM EST Narrative Resulting Agency Comment Spec In Lab Kaveh Whiteside MD HEMATOLOGY O RDERABLES [facility] [place] [address] * (ABNORMAL) Differential, Automated (04/27/2017 1:00 AM EST) Pathologist [facility] Neutrophil % 81.9 % [facility] Neutrophil Absolute 18.61(H) 1.70 - 6.10 x10(3)/mc L [facility] Lymph % 4.8 % [facility] Lymphocytes Abs 1.1 0.9 - 3.2 x10(3)/mc L [facility] Monocyte % 12.3 % [facility] Monocyte Abs 2.8(H) 0.3 - 0.9 x10(3)/mc L [facility] Eos % 0.0 % [facility] Eosinophils Abs 0.0 0.0 - 0.4 x10(3)/mc L [facility] Basophil % 0.2 % [facility] Baso Absolute 0.0 0.0 - 0.1 x10(3)/mc L [facility] Immature Gran % 0.80 % [facility] Comment: Immature granulocytes(IG's)percentage and absolute count will include metamyelocytes, myelocytes, and promyelocytes. Blood smears from CBCs yielding IG's will be scanned manually for concordance. If this scan disagrees with the automated IG or if promyelocytes are noted, a manual differential will be performed. Immature Gran Absolute 0.19(H) 0.00 - 0.04 x10(3)/mc L [facility] Blood specimen (specimen) 04/27/2017 1:00 AM EST 04/27/2017 1:20 AM EST Narrative Resulting Agency Comment Spec In Lab Kaveh Whiteside MD HEMATOLOGY O RDERABLES Performing Organization Address City/State/[facility] Co de Phone Number [facility] [place] [address] * (ABNORMAL) Hemogram (04/27/2017 1:00 AM EST) White Blood Cell 22.7(H) 4.0 - 9.5 x10(3)/[facility] Red Blood Cell 3.79(L) 4.00 - 5.21 x10(6)/[facility] Hemoglobin 12.0 11.7 - 15.5 gm/dL [facility] Hematocrit 36.3 35.7 - 45.8 % [facility] Mean Cell Volume 95.8(H) 82.6 - 94.4 fL [facility] Mean Cell Hemoglobin 31.7 27.1 - 32.0 pg [facility] Mean Cell Hemoglobin Concentration 33.1 31.7 - 35.0 gm/dL [facility] Platelet 337 145 - 357 x10(3)/[facility] RDW Standard Deviation 47.4(H) 37.0 - 46.0 [facility] RDW coefficient of variation 13.4 11.5 - 14.1 % [facility] Mean Platelet Volume 9.3 7.6 - 12.9 [facility] NRBC% auto 0.0 % [facility] NRBC Absolute 0.000 0.000 - 0.000 x10(3)/ L [facility] Blood specimen (specimen) 04/27/2017 1:00 AM EST 04/27/2017 1:20 AM EST Narrative Resulting Agency Comment Spec In Lab Kaveh Whiteside MD HEMATOLOGY O RDERABLES Performing Organization Address [facility] [place] [address] * (ABNORMAL) Phosphorus (04/27/2017 1:00 AM EST) Phosphorus 6.3(H) 2.5 - 4.5 mg/dL [facility] Blood specimen (specimen) 04/27/2017 1:00 AM EST 04/27/2017 1:20 AM EST Narrative Resulting Agency Comment Spec In Lab Mali Lakhani MD CHEMISTRY ORDERABLES Performing Organization Address [facility] [place] [address] * (ABNORMAL) Magnesium (04/27/2017 1:00 AM EST) Magnesium 0.56(L) 0.69 - 1.07 mmol/L [facility] Blood specimen (specimen) 04/27/2017 1:00 AM EST 04/27/2017 1:20 AM EST Narrative Resulting Agency Comment Spec In Lab Mali Lakhani MD CHEMISTRY ORDERABLES Performing Organization Address [facility] [place] [address] * (ABNORMAL) Calcium (04/27/2017 1:00 AM EST) Calcium 7.2(L) 8.5 - 10.5 mg/dL [facility] Blood specimen (specimen) 04/27/2017 1:00 AM EST 04/27/2017 1:20 AM EST Narrative Resulting Agency Comment Spec In Lab Mali Lakhani MD CHEMISTRY ORDERABLES Performing Organization Address [facility] Co de Phone Number [facility] [place] [address] * (ABNORMAL) Creatinine (04/27/2017 1:00 AM EST) Creatinine 1.40(H) 0.70 - 1.20 mg/dL [facility] Est Glomerular Filtration Rate 39(L) >=60 [facility] Comment: The reported eGFR should be multiplied by 1.2 for patients. The MDRD is not an appropriate measure of renal function for patients with body mass extremes or in patients with acute kidney failure. http://[employer]/DHnkdep http://[employer]/DHMCnkf Blood specimen (specimen) 04/27/2017 1:00 AM EST 04/27/2017 1:20 AM EST Narrative Resulting Agency Comment Spec In Lab Mali Lakhani MD CHEMISTRY ORDERABLES Performing Organization Address [facility] Co de Phone Number [facility] [place] [address] * (ABNORMAL) BUN (04/27/2017 1:00 AM EST) Blood Urea Nitrogen 25(H) 8 - 18 mg/dL [facility] Blood specimen (specimen) 04/27/2017 1:00 AM EST 04/27/2017 1:20 AM EST Narrative Resulting Agency Comment Spec In Lab Mali Lakhani MD CHEMISTRY ORDERABLES Performing Organization Address [facility]/ZIP Co de Phone Number [facility] [place] [address] * (ABNORMAL) Electrolytes panel (04/27/2017 1:00 AM [...] mmol/L [facility] Carbon Dioxide 18(L) 22 - 31 mmol/L [facility] Anion Gap 24(H) 5 - 15 mmol/L [facility] Blood specimen (specimen) 04/27/2017 1:00 AM EST 04/27/2017 1:20 AM EST Narrative Resulting Agency Comment Spec In Lab Mali Lakhani MD CHEMISTRY ORDERABLES Performing Organization Address City/[facility]/[place] [address] * Specimen to Pathology (04/26/2017 11:57 AM EST) AP Specimen 04/26/2017 11:5 7 AM EST 04/26/2017 12:34 PM EST Narrative [facility] - 04/26/2017 12:34 PM EST Specimen requisition ordered. ??Separate Pathology report to follow Resulting Agency Comment Spec In Lab Mali Lakhani MD PATHOLOGY/CYTOLOGY O RDERABLES Performing Organization Address City/[facility]/[place] [address] * Specimen to Pathology (04/26/2017 10:52 AM EST) AP Specimen 04/26/2017 10:5 2 AM EST 04/26/2017 12:34 PM EST Narrative [facility] - 04/26/2017 12:34 PM EST Specimen requisition ordered. ??Separate Pathology report to follow Resulting Agency Comment Spec In Lab Ria Menendez MD PATHOLOGY/CYTOLOGY ORDERABLES Performing Organization Address City/[facility]/[place] [address] * Specimen to Pathology (04/26/2017 10:52 AM EST) AP Specimen 04/26/2017 10:5 2 AM EST 04/26/2017 12:34 PM EST Narrative [facility] - 04/26/2017 12:34 PM EST Specimen requisition ordered. ??Separate Pathology report to follow Resulting Agency Comment Spec In Lab Ria Menendez MD PATHOLOGY/CYTOLOGY ORDERABLES [facility] [place] [address] * Surgical Pathology Report (04/26/2017 10:50 AM EST) Final Diagnosis [id number] ? Location: [facility]; [facility]; A The signing pathologist has (i) [...] AJCC 8th Edition CAP Annual Release ER, NM, and HER2 testing (performed on prior biopsy, [id number]): ER: Positive ( >90%, strong) NM: Positive ( >90%, strong) HER2 FISH: Negative Electronically signed by: ??Bill Zavala MD Verified: ??05/02/2017 ?Pathologist Performed at: ??-[facility] [place] CLINICAL INFORMATION Specimen Submitted: A - [...] margin to lesion III; (8) slice III, guest relations representative normal parenchyma, upper inner quadrant; (9) slice III, guest relations representative normal parenchyma, lower inner quadrant; (10-11) slice IV, lesion IV to nearest deep-black margin; (12) slice V, lesion V to deep-black margin; (13) slice V, lesion V to deep- black margin; (14-15) slice , lesion V to closest deep-black margin, with clip in A14; (16-17) slice VII, lesion to nearest superficial-blue margin; (18) slice , guest relations representative normal parenchyma, lower outer quadrant, with skin; (19) slice , guest relations representative normal parenchyma, upper outer quadrant; (20) slice V, nipple base; (21) slice , guest relations representative subareolar tissue ?? . (R21) Ischemic [...] (13) slice , lesional area abutting the araw-yna-wgzmn margin; (14) slice , lesional area abutting the superficial-blue margin; (15) slice VII, lesional area abutting the deep-black margin; (16) slice VII, lesional area abutting the superficial-blue margin; (17) slice VIII, lesional area to dkltsbnjzqf-qeg-bqbm margin; (18) slice IX, lesional area to lateral margin; (19) slice IV, nipple base; (20) slice , guest relations representative skin . (R20) Ischemic Time: 170 minutes 05/02/2017 10:07 AM [facility] BREAST STRUCTURE / Unknown 04/26/2017 10:50 AM EST 04/26/2017 10:50 AM EST BREAST STRUCTURE / Unknown 04/26/2017 10:50 AM EST 04/26/2017 10:50 AM EST BREAST STRUCTURE / Unknown 04/26/2017 10:50 AM EST 04/26/2017 10:50 AM EST Ria Menendez MD PATHOLOGY/CYTOLOGY ORDERABLES [facility] [address] documented in this encounter Visit Diagnoses Not [...] Starting on Sosa 04/26/17 at 1749, Until 05/01/17 at 1420, Administer over 2 Minutes, Intra-Operative [...] Tang RN)1531 (Given - Provider: Christy Tang RN)2004 (Given - Provider: Karley Easton RN) 0003 [...] Discontinued, DO NOT CRUSH OR OPEN, Routine 812 (Given - Provider: Carrie Mann RN) 08 (Given - Provider: Christy Tang RN) 816 (Given - Provider: Senia Meeks RN) docusate [...] on Sun04/27/17 at 0900, Until Discontinued, Routine 813 (Given - Provider: Carrie Mann RN) 08 (Given - Provider: Christy Tang RN) 0816 (Given - Provider: Senia Meeks RN) hydroCHLOROthiazide (HYDRODIURIL) tablet 12.5 mg 12.5 mg, Oral, DAILY, First dose on Sun04/27/17 at 1730, Until Discontinued, Routine 812 (Given - Provider: Carrie Mann RN) 0804 [...] umbilicus 1531 (Given - Provider: Christy Tang, RN)2010 (Given - Provider: Karley Easton, JENNYFER) 817 (Given - Provider: Senia Meeks, JENNYFER) sodium chloride 0.9 % flush 5 mL 5 mL, Intravenous, 2 TIMES DAILY, First dose on Sun04/27/17 at 0100, Until Discontinued, Recovery (Recovery-Hospital Unit), Routine 0824 (Given - Provider: Carrie Mann RN)2009 (Given - Provider: Karley Easton, JENNYFER) 08 (Given - Provider: Christy Tang, JENNYFER)2009 (Given - Provider: Karley Easton, JENNYFER) 08 (Given - Provider: Senia Meeks, JENNYFER) valsartan (DIOVAN) tablet 160 mg 160 mg, Oral, DAILY, First dose on Sun04/27/17 at 1730, Until Discontinued, Routine 0815 (Given - Provider: Carrie Mann RN) 08 (Given - Provider: Christy Tang RN) 0816 (Given - Provider: Senia Meeks, JENNYFER) PRN Medication Order 04/29/2017 04/30/2017 05/01/2017 bisacodyl [...] Galan, JENNYFER)1035 (Given - Provider: Shannan Galan, RN)1045 (Given - Provider: Shannan Galan RN)1050 (Given - Provider: Shannan Galan RN) HYDROmorphone [...] hours, Routine 1552 (Given - Provider: Christy Tang RN) 0407 (Given - Provider: Karley Easton RN) [...] Shannan Galan RN)1045 (Given - Provider: Shannan Galan, JENNYFER)1050 (Given - Provider: Shannan Galan, RN) ondansetron (ZOFRAN) injection 4 mg(Linked Group 2) 4 mg, Intravenous, EVERY 8 HOURS PRN, Starting on Sun04/27/17 at 0038, Until Sun05/01/17 at 1420, Nausea, May repeat times one in 30 minutes if ineffective. If multiple antiemetics are ordered, use ondanstron first, Recovery (Recovery-Hospital Unit) 0934 (See Alternative - Provider: Carrie Mann RN) 0831 (Given - Provider: Christy Tang RN) 0945 (See Alternative - Provider: Senia Meeks, [...] Christy Tang, JENNYFER)1831 (Given - Provider: Christy Tang, JENNYFER) 0003 [...] Mann RN)2319 (See Alternative - Provider: Karley Easton, JENNYFER) 0340 (See Alternative - Provider: Karley Easton RN)0802 (See Alternative - Provider: Christy Tang RN)1401 (See Alternative - Provider: Christy Tang, JENNYFER)1831 (See Alternative - Provider: Christy Tang, JENNYFER) 0003 (See Alternative - Provider: Karley Easton [...] Tang, JENNYFER)1401 (See Alternative - Provider: Christy Tang, JENNYFER)1831 (See Alternative - Provider: Christy Tang RN) [...] Sun04/27/17 at 0038, Until Tu05/01/17 at 1420, flush, Flush pertains to all [...] Routine documented in this encounter Care Teams Warp Dyeing Tender Relationship Specialty Start Date End Date Trinh Coates MD Abisai [address] [place] [address] PCP - General 01/11/10 documented as of this encounter
--- OUTSIDE RECORDS SUMMARY | 2023-09-25 11:51 | XMS_ITS | Encounter Summary ---
Author Organization [facility] [place] [address] Care Team Providers Care Station Repairer Name Role Phone Trinh Coates MD Primary Care Provider [phone] Reason for Referral * Diagnostic Test (Routine) - Closed Specialty Diagnoses / Procedures Referred By Contac t Referred To Contact Radiology Diagnoses Malignant neoplasm of female breast, unspecified estrogen receptor status, unspecified laterality, unspecified site of breast Procedures MRI Abdomen wwo Contrast (Generic) Jolie Menendez MD [facility] [place] [address] [place] [address] Referral ID Status Reason Start Date Expiration Date V isits Requested Visits Authorized [id number] Closed Specialty Service Requested 04/13/2017 05/28/2017 1 1 Reason for Visit * Diagnostic Test (Routine) - Closed Specialty Diagnoses / Procedures Referred By Contrenan t Referred To Contact Radiology Diagnoses Malignant neoplasm of female breast, unspecified estrogen receptor status, unspecified laterality, unspecified site of breast Procedures MRI Abdomen wwo Contrast (Generic) Jolie Menendez MD [facility] [place] [address] [place] [address] Referral ID Status Reason Start Date Expiration Date V isits Requested Visits Authorized [id number] Closed Specialty Service Requested 04/13/2017 05/28/2017 1 1 Encounter Details Date Type Department Care Team (Latest Contact Info) Description 04/18/2017 3:28 PM EST - 04/18/2017 11:59 PM EST Hospital Encounter MRI at [facility] [place] [address] Jolie Menendez MD [facility] [place] [address] Malignant neoplasm of female breast, unspecified estrogen [...] 01/22/2024 10:30 AM EST Appointment Mammography/[place] [address] Ladi Mendosa MD [facility] HEMATOLOGY [place] [address] 01/30/2024 11:30 AM EST Office Visit Dermatology at [facility] [address] [place] [address] Nilda Luis MD [facility] [address] [place] [address] 02/14/2024 7:30 AM EST Appointment Radiology [place] [address] Joanna Watts MD [facility] [place] [place] [address] documented as of this encounter Procedures Procedure [...] mLs documented in this encounter Care Teams Station Repairer Relationship Specialty Start Date End Date Trinh Coates MD [facility] [address] [place] [address] PCP - General 01/11/10 documented as of this encounter
--- OUTSIDE RECORDS SUMMARY | 2023-09-25 11:51 | XMS_ITS | Encounter Summary ---
Author Organization [facility] Address [facility] [address] Care Team Providers Care Clay Dry Press Mixer Operator Name Role Phone Trinh Coates MD Primary Care Provider [phone] Encounter Details Date Type Department Care Team (Latest Contact Info) Description 05/04/2017 12:23 PM EDT - 05/04/2017 11:59 PM EDT Hospital Encounter XRay at [address] [place] [address] Andre Gimenez MD [facility] [place] [address] S/P breast reconstruction Discharge Disposition: Home Social [...] 01/22/2024 10:30 AM EST Appointment Mammography/[place] [address] Ladi Mendosa MD [facility] [place] [address] 01/30/2024 11:30 AM EST Office Visit Dermatology at [address] [place] [address] Nilda Luis MD [facility] [place] [address] 02/14/2024 7:30 AM EST [place] [address] Joanna Watts MD [facility] [place] [address] documented as of this encounter Procedures Procedure [...] means documented in this encounter Care Teams Clay Dry Press Mixer Operator Relationship Specialty Start Date End Date Trinh Coates MD [address] [place] [address] PCP - General 01/11/10 documented as of this encounter
--- OUTSIDE RECORDS SUMMARY | 2023-09-25 11:51 | XMS_ITS | Encounter Summary ---
Author Organization [facility] Address [facility] [place] [address] Care Team Providers Care Archives Director Name Role Phone Trinh Coates MD Primary Care Provider Reason for Visit * Auth/Cert Specialty Diagnoses / Procedures Referred By Diamante marin Referred To Contact Diagnoses Left breast cancer Procedures PRO BREAST RECONSTRUC W FREE FLAP @BREAST RECONSTRUCTION W/ FREE FLAP, SUSAN (WRVU 42.58) Referral ID Status Reason Start Date Expiration Date Visits Re quested Visits Authorized [id number] 1 1 Encounter Details Date Type Department Care Team (Late st Contact Info) Description 04/26/2017 7:41 AM EST Anesthesia Event [place] [address] Jalil Givens MD [facility] [place] [address] Scooby Hanks MD [facility] [place] [address] Anesthesia Record Procedure Summary Procedure Name Responsible Anesthesiologist Anesthesia Start Time Anesthesia Stop Time @BREAST RECONSTRUCTION W/ FREE FLAP, SUSAN (WRVU 42.58) (Bilateral: Breast) Jalil Givens MD 04/26/17 0741 04/27/17 0104 Events [...] 1055; median cubital vein (antecubital fossa), right; iuzu-rko-dogila catheter system; 1 in length, 20 gauge; 05/25/17; 1304 04/11/17 1055 by Venessa Posadas 05/25/17 1304 by Alejandra Valencia RN (RETIRED) Peripheral IV Line - Single Lumen 04/26/17; 0636; metacarpal vein (top of hand), right; gpip-gks-ugsmjb catheter system; 20 gauge, 1 in length; [...] Time: 1630 04/26/17 0747 by Sneha Jaramillo, LAMBSKIN TRIMMER 04/26/17 1630 by Eddi Ruiz MD Arterial Line 04/26/17; 0755; radi al artery, right; 20 gauge; Scooby Hanks MD; Sterile Prep, Sterile Gloves; removed in OR prior to arrival in PACU; no longer indicated; 04/26/17; 1800 04/26/17 0755 by Sneha Jaramillo, LAMBSKIN TRIMMER 04/26/17 1800 by Veronica Gardner RN Urethral [...] 0803; median cubital vein (antecubital fossa), right; ioxm-pgt-nmpnxn catheter system; 18 gauge; Sneha Jaramillo LAMBSKIN TRIMMER; 04/30/17; 1002 04/26/17 0803 by Sneha Jaramillo E, LAMBSKIN TRIMMER 04/30/17 1002 by Ailyn Bryson RN Incision [...] Givens MD - 04/27/2017 1:43 AM EST [facility] Department of Anesthesiology Post-procedure Note Patient: Wendy Sandoval Procedure Summary Date Anesthesia Start Anesthesia Stop Room / Location 04/26/17 0741 0104 (04/27/17) [facility] OR [address] [place] [address] MAIN OR Procedure Diagnosis Surgeon Responsible Provider @BREAST RECONSTRUCTION W/ FREE FLAP, SUSAN (WRVU 42.58) (Bilateral Breast); EXCISION OF RIB, PARTIAL (WRVU 7.26) (Bilateral Chest); BREAST RECONSTRUCTION, IMMEDIATE OR DELAYED, W/ TISSUE DRYWALL INSTALLER, INCLUDING SUBSEQUENT EXPANSION (WRVU 18.5) (Bilateral Breast); [...] Anesthesiologist: Jalil Givens MD; Scooby Hanks MD LAMBSKIN TRIMMER: Sneha Jaramillo CRNA; Scooby Daniels CRNA; Wang Medrano CRNA Most Recent Vitals: 04/27/17 0130 BP: 158/81 Pulse: (!) 110 Resp: 15 Temp: SpO2: 92% Pain 0 (04/27/17129) Patient Location: PACU/[facility] Level of Consciousness: Conscious but Sleepy [...] LARYNGEAL performed by Valentina Lucas MD at [facility] MAIN OR ??? PRO EXPLORE PARATHYROID GLANDS N/A 11/02/2015 PARATHYROIDECTOMY OR EXPLORATION OF PARATHYROID(S) performed by Valentina Lucas MD at [facility] MAIN OR ??? PRO THYMECTOMY, TRANSCERVICAL N/A 11/02/2015 THYMECTOMY, TRANSCERVICAL APPROACH performed by Valentina Lucas MD at [facility] MAIN OR ??? SHOULDER SURGERY Left [...] 01/22/2024 10:30 AM EST Appointment Mammography/[place] [address] Ladi Mendosa MD [facility] [place] [address] 01/30/2024 11:30 AM EST Office Visit Dermatology at [facility] [address] [place] [address] Nilda Luis MD [facility] [place] [address] 02/14/2024 7:30 AM EST [place] [address] Joanna Watts MD [facility] [place] [address] documented as of this encounter Visit Diagnoses [...] mg dexamethasone (DECADRON) injection PRN, Starting on Sun04/26/17 at 0745, Until Sun04/27/17 at 0104, Anesthesia Intra-op, Routine Given 04/26/2017 7:45 AM EST 8 mg dexmedetomidine (PRECEDEX) injection PRN, Starting on Sun04/26/17 at 2243, Until Sun04/27/17 at 0104, Anesthesia [...] mg documented in this encounter Care Teams Archives Director Relationship Specialty Start Date End Date Trinh Coates MD [address] [place] [address] PCP - General 01/11/10 documented as of this encounter
--- OUTSIDE RECORDS SUMMARY | 2023-09-25 11:51 | XMS_ITS | Encounter Summary ---
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 Silver Sulfadiazine (Silvadene) is an antibiotic cream. What should my doctor know before recommending I use silver sulfadiazine? He/She needs to know if you have any of these conditions or take any of these medications: Anemia or other blood disorders; liver or kidney disease; porphyria; byajpdn-4-tmsyeohvg dehydrogenase deficiency; allergies to sulfites, sulfa drugs, [...] 01/22/2024 10:30 AM EST Appointment Mammography/[place] [address] Ladi Mendosa MD [facility] [place] [address] 01/30/2024 11:30 AM EST Office Visit Dermatology at [place] [address] [place] [address] Nilda Luis MD [facility] [place] [address] 02/14/2024 7:30 AM EST Appointment [place] [address] Joanna Watts MD [facility] [place] [address] documented as of this encounter Results * [...] means documented in this encounter Care Teams Corking Machine Operator Relationship Specialty Start Date End Date Trinh Coates MD [address] [place] [address] PCP - General 01/11/10 documented as of this encounter
--- OUTSIDE RECORDS SUMMARY | 2023-09-25 11:51 | XMS_ITS | Encounter Summary ---
Author Organization [facility] [place] [address] Care Team Providers Care Exchange Mechanic Name Role Phone Trinh Coates MD Primary Care Provider [phone] Reason for Referral * Diagnostic Test (Routine) - Closed Specialty Diagnoses / Procedures Referred By Diamante marin Referred To Contact Radiology Diagnoses Malignant neoplasm of female breast, unspecified estrogen receptor status, unspecified laterality, unspecified site of breast Procedures MRI Abdomen wwo Contrast (Generic) Jolie Menendez MD [facility] [place] [address] [place] [address] Referral ID Status Reason Start Date Expiration Date V isits Requested Visits Authorized [id number] Closed Specialty Service Requested 04/13/2017 05/28/2017 1 1 Encounter Details Date Type Department Care Team (Late st Contact Info) Description 04/13/2017 Orders [place] [address] Jolie Menendez MD [facility] [place] [address] Malignant neoplasm of female breast, [...] 01/22/2024 10:30 AM EST Appointment Mammography/[place] [address] Ladi Mendosa MD [facility] HEMATOLOGY [place] [address] 01/30/2024 11:30 AM EST Office Visit Dermatology at [address] [phone] Nilda Luis MD [facility] [place] [address] 02/14/2024 7:30 AM EST [place] [address] Joanna Watts MD [facility] [place] [address] documented as of this encounter Results * [...] breast documented in this encounter Care Teams Exchange Mechanic Relationship Specialty Start Date End Date Trinh Coates MD [address] [place] [address] PCP - General 01/11/10 documented as of this encounter
--- OUTSIDE RECORDS SUMMARY | 2023-09-25 11:52 | XMS_ITS | Encounter Summary ---
Author Organization [facility] Address [facility] [place] [address] Care Team Providers Care Agricultural Sciences Professor Name Role Phone Trinh Coates MD Primary Care Provider [phone] Reason for Visit * Reason Comments Follow-up Encounter Details Date Type Department Care Team (Latest Contact Info) Description 12/09/2015 11:00 AM EDT Office [place] [address] Valentina Lucas MD [facility] [place] [address] History of hyperparathyroidism Social History Tobacco Use [...] 01/22/2024 10:30 AM EST Appointment Mammography[place] [address] Ladi Mendosa MD [facility] [place] [address] 01/30/2024 11:30 AM EST Office Visit Dermatology at [place] [address] [place] [address] Nilda Luis MD [facility] [place] [address] 02/14/2024 7:30 AM EST [place] [address] Joanna Watts MD [facility] [place] [address] documented as of this encounter Results * PTH (12/09/2015 10:20 AM EDT) Parathyroid Hormone 18 15 - 65 pg/mL [facility] Blood specimen (specimen) 12/09/2015 10:20 AM EDT 12/09/2015 10:25 AM EDT Narrative Resulting Agency Comment Spec In Lab Valentina Lucas MD [place] [address] documented in this encounter Visit Diagnoses Diagnosis History of hyperparathyroidism Personal history of other endocrine, metabolic, and immunity disorders documented in this encounter Care Teams Agricultural Sciences Professor Relationship Specialty Start Date End Date Trinh Coates MD [address] [place] [address] PCP - General 01/11/10 documented as of this encounter
--- OUTSIDE RECORDS SUMMARY | 2023-09-25 11:52 | XMS_ITS | Encounter Summary ---
Author Organization [facility] Address [facility] [place] [address] Care Team Providers Care Materials And Processes Manager Name Role Phone Trinh Coates MD Primary Care Provider [phone] Encounter Details Date Type Department Care Team (Late st Contact Info) Description 04/05/2017 Telephone [place] [address] Flor Salguero Social History Tobacco Use Types [...] 01/22/2024 10:30 AM EST Appointment Mammography/[place] [address] Ladi Mendosa MD [facility] [place] [address] 01/30/2024 11:30 AM EST Office Visit Dermatology at [facility] [address] [place] [address] Nilda Luis MD [facility] [place] [address] 02/14/2024 7:30 AM EST [place] [address] Joanna Watts MD [facility] [place] [address] documented as of this encounter Visit Diagnoses Not on filedocumented in this encounter Care Teams Materials And Processes Manager Relationship Specialty Start Date End Date Trinh Coates MD [address] [place] [address] PCP - General 01/11/10 documented as of this encounter
--- OUTSIDE RECORDS SUMMARY | 2023-09-25 11:52 | XMS_ITS | Encounter Summary ---
Author Organization [facility] Address [facility] [place] [address] Care Team Providers Care Sternman Name Role Phone Trinh Coates MD Primary Care Provider [phone] Encounter Details Date Type Department Care Team (Late st Contact Info) Description 03/30/2017 Notes Only [place] [address] Josias Barnett MD [facility] DR HEMATOLOGY/[place] [address] Social History Tobacco Use Types Packs/Day Years [...] 01/22/2024 10:30 AM EST Appointment Mammography[place] [address] Ladi Mendosa MD [facility] [place] [address] 01/30/2024 11:30 AM EST Office Visit Dermatology at [place] [address] [place] [phone] Nilda Luis MD [facility] [place] [address] 02/14/2024 7:30 AM EST Appointment Radiology at [place] [phone] Joanna Watts MD [facility] [place] [address] documented as of this encounter Visit Diagnoses Not on filedocumented in this encounter Care Teams Sternman Relationship Specialty Start Date End Date Trinh Coates MD [facility] [address] [place] [address] PCP - General 01/11/10 documented as of this encounter
--- OUTSIDE RECORDS SUMMARY | 2023-09-25 11:52 | XMS_ITS | Encounter Summary ---
Author Organization [facility] [place] [address] Care Team Providers Care Document Processing Specialist Name Role Phone Trinh Coates MD Primary Care Provider [phone] Reason for Visit * Diagnostic Test (Routine) - Closed Specialty Diagnoses / Procedures Referred By Diamante marin Referred To Contact Radiology Diagnoses Malignant neoplasm of left female breast, unspecified estrogen receptor status, unspecified site of breast Procedures CT Chest Abdomen Pelvis w Contrast (Generic) Jolie Menendez MD [facility] [place] [address] [facility] [place] [address] Referral ID Status Reason Start Date Expiration Date V isits Requested Visits Authorized [id number] Closed Specialty Service Requested 04/04/2017 05/19/2017 3 3 Encounter Details Date Type Department Care Team (Latest Contact Info) Description 04/11/2017 1:28 PM EST - 04/11/2017 11:59 PM [facility] Hospital Encounter [place] [address] Jolie Menendez MD [facility] [place] [address] Discharge Disposition: Home Social History [...] 01/22/2024 10:30 AM EST Appointment Mammography/DXA at [place] [phone] Ladi Mendosa MD [facility] [place] [address] 01/30/2024 11:30 AM EST Office Visit Dermatology at [address] [phone] Nilda Luis MD [facility] [place] [address] 02/14/2024 7:30 AM EST Appointment [place] [address] Joanna Watts MD [facility] NEUROSURGERY [place], [place] [phone] documented as of this encounter Procedures Procedure [...] at 04/11/2017 4:[address] [facility] [place] ORDERABLES documented in this encounter Visit Diagnoses Not on filedocumented in this encounter Care Teams Document Processing Specialist Relationship Specialty Start Date End Date Trinh Coates MD [facility] [address] [place] [address] PCP - General 01/11/10 documented as of this encounter
--- OUTSIDE RECORDS SUMMARY | 2023-09-25 11:52 | XMS_ITS | Encounter Summary ---
Author Organization [facility] Address [facility] [place] [address] Care Team Providers Care Quality Tester Name Role Phone Trinh Coates MD Primary Care Provider [phone] Encounter Details Date Type Department Care Team (Late st Contact Info) Description 12/09/2015 10:15 AM EDT Laboratory Appointment Lab [address] [place] [address] Social History Tobacco Use Types Packs/Day Years [...] AM EST Appointment Mammography/[place] [address] Ladi Mendosa MD [facility] HEMATOLOGY [place] [address] 01/30/2024 11:30 AM EST Office Visit Dermatology at [facility] [address] [place] [address] Nilda Luis MD [facility] [place] [address] 02/14/2024 7:30 AM [place] [address] Joanna Watts MD [facility] [place] [address] documented as of this encounter Procedures Procedure Name Priority Date/Time Associated Diagnosis Comments HEMOGLOBIN A1C Routine 12/09/2015 10:20 AM EDT documented in this encounter Results * (ABNORMAL) Hemoglobin A1c (12/09/2015 10:20 AM EDT) Hemoglobin A1c 6.2(H) 4.3 - 5.6 % [facility] Comment: Reference Range: 4.3 [...] Diabetes Care 2013; 36: Suppl. 1, S67-74 Estimated Average Glucose 131 mg/dL [facility] Comment: eAG equivalents for HbA1c percentages: HbA1c(%) ?eAG(mg/dL) 6.0 ?126 6.5 ?140 7.0 ?154 7.5 ?169 8.0 ?183 8.5 ?197 9.0 ?212 9.5 ?226 10.0 ? 240 Limitations: The eAG calculation has not been validated on women, individuals below 18 years old and above 70 years old, and individuals with hemoglobinopathies. Additional resources are available on the ADA website: http://[employer].GEOCOMtms/DHadacalc Prosper JERONIMO, Hank J, Yunior R, et al. ??Translating the A1C assay into estimated average glucose values. ??Diabetes Care 2008:31(8):7647-2787. Blood specimen (specimen) Venous Draw / Unknown 12/09/2015 10:20 AM EDT 12/09/2015 10:25 AM EDT Narrative Resulting Agency Comment Spec In Lab Trinh Coates MD CHEMISTRY ORDERABLES [facility] [place] [address] documented in this encounter Visit Diagnoses Not on filedocumented in this encounter Care Teams Quality Tester Relationship Specialty Start Date End Date Trinh Coates MD [address] [place] [address] PCP - General 01/11/10 documented as of this encounter
--- OUTSIDE RECORDS SUMMARY | 2023-09-25 11:52 | XMS_ITS | Encounter Summary ---
Author Organization [facility] [place] [address] Care Team Providers Care Home Weatherizing Worker Name Role Phone Trinh Coates MD Primary Care Provider [phone] Reason for Visit * Consultation (Routine) - Closed Specialty Diagnoses / Procedures Referred By Diamante marin Referred To Contact Hematology and Oncology Diagnoses Breast cancer Trinh Coates MD [address] [place] [address] [facility] [address] [place] [address] [facility] Hem Onc [address] [place] [address] Referral ID Status Reason Start Date Expiration Date Visits Re quested Visits Authorized [id number] Closed 03/21/2017 03/21/2018 1 1 Encounter Details Date Type Department Care Team (Late st Contact Info) Description 03/29/2017 11:00 AM EST Office Visit [place] [address] Jolie Menendez MD [facility] [place] [place] [address] Rasheeda Trent, RN Ureteral stone; [...] Exercises handout created by physical therapists at [facility] [place]. 7. Breast Cancer Treatment Process care map [...] The right breast was normal. Biopsy revealed stronglyER/MI+, HER2- IDC. MRI was then obtained for [...] 01/22/2024 10:30 AM EST Appointment Mammography/[place] [address] Ladi Mendosa MD [facility] [place] [address] 01/30/2024 11:30 AM EST Office Visit Dermatology at [place] [address] [place] [address] Nilda Luis MD [facility] [place] [address] 02/14/2024 7:30 AM EST Appointment Radiology at [place] [phone] Joanna Watts MD [facility] NEUROSURGERY [place] [id number] documented as of this encounter Procedures Procedure Name Priority Date/Time Associated Diagnosis Comments SURGICAL PATHOLOGY REPORT Routine 03/29/2017 3:20 PM EST documented in this encounter Results * Surgical Pathology Report (03/29/2017 3:20 PM EST) Final Diagnosis [id number] ? Location: 4L The signing pathologist has (i) examined the relevant preparation(s) for the specimen(s) and (ii) rendered or confirmed the diagnosis(es). . ?Surgical Pathology DIAGNOSIS Needle biopsies: ?Left axilla Diagnosis: ?Lymph node with metastatic carcinoma (see Discussion) Microcalcification s: ??N/A Electronically signed by: ??Sally RENEE, Bill Avila Verified: ??03/30/2017 ?Pathologist Performed at: ??-[facility] [place] Dept. of Pathology, [place], [place] DISCUSSION The tumor morphologically resembles the patient ?? 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 CLINICAL INFORMATION Specimen Submitted: A - Left axilla bx 14g, biopsy (3) Clinical History: Node Clinical Diagnosis: 1. Met 2. Hyperplasia SPECIMEN PROCESSING A - ??Labeled/Fixative : Left axilla BX, formalin. Quantity/Size: Five, ranging from 0.3 x 0.2 cm to 1.0 x 0.2 cm. Tissue Description: Fibrofatty needle core biopsies. Ischemic Time: 5 minutes. Sections/Processin g: (T2) ??sns 03/30/2017 12:03 PM EST [facility] BREAST STRUCTURE / Unknown 03/29/2017 3:20 PM EST 03/29/2017 3:20 PM EST Kim Rodriguez MD PATHOLOGY/CYTOLOGY ORDERABLES [facility] [place] [address] * (ABNORMAL) Urinalysis with reflex Culture (03/29/2017 2:27 PM EST) Glucose, Urine Dipstick Negative Negative mg/dL [facility] Protein, Urine Dipstick >=500(A) Negative mg/dL [facility] Bilirubin, Urine Dipstick Negative Negative mg/dL [facility] Comment: Clinical correlation required for positive Urine Bilirubin results as false positive may occur with some drugs and drug related products. If a false positive is suspected a serum total bilirubin should be considered if clinically indicated. Urobilinogen, Urine Dipstick Normal Normal mg/dL [facility] pH, Urn (dipstick) 5.0 5.0 - 8.0 [facility] Blood, Urine Dipstick Negative Negative mg/dL [facility] Ketone, Urine Dipstick Negative Negative mg/dL [facility] Nitrite, Urine Dipstick Negative Negative [facility] Leukocytes, Urine Dipstick Negative Negative [facility] Appearance, Urine Dipstick Hazy(A) Clear [facility] Specific [place] Urine Automated 1.024 1.002 - 1.030 [facility] Color, Urine Dipstick Yellow Yellow [facility] Reflex to Culture No [facility] Urine specimen obtained by clean catch procedure (specimen) 03/29/2017 2:27 PM EST 03/29/2017 2:34 PM EST Narrative Resulting Agency Comment Spec In Lab Jolie Menendez MD URINE ORDERABLES Performing Organization Address City/State/[facility] Co de Phone Number [facility] [place] [address] documented in this encounter Visit Diagnoses Diagnosis Ureteral stone Calculus of ureter Malignant neoplasm of upper-outer quadrant of left breast in female, estrogen receptor positive documented in this encounter Care Teams Home Weatherizing Worker Relationship Specialty Start Date End Date Trinh Coates MD [address] [place] [address] PCP - General 01/11/10 documented as of this encounter
--- OUTSIDE RECORDS SUMMARY | 2023-09-25 11:52 | XMS_ITS | Encounter Summary ---
Author Organization [facility]ly [facility] Address [facility] [place] [address] Care Team Providers Care Telepathist Name Role Phone Trinh Coates MD Primary Care Provider [phone] Encounter Details Date Type Department Care Team (Late st Contact Info) Description 11/15/2015 Telephone [place] [address] Venessa Amato MD [facility] [place] [address] Social History Tobacco Use Types Packs/Day Years [...] labs. [place] [facility] so I recommended that she present to her local ED [facility]. She is in agreement with this plan. Venessa Amato MD PGY 2 General Surgery Pgr [phone] documented in this encounter Plan of Treatment Upcoming Encounters Date Type Department Care Team (Late st Contact Info) Description 01/22/2024 10:30 AM EST Appointment Mammography/[place] [phone] Ladi Mendosa MD [facility] HEMATOLOGY [place] [address] 01/30/2024 11:30 AM EST Office Visit Dermatology at [address] [address] Nilda Luis MD [facility] [place] [address] 02/14/2024 7:30 AM [place] [phone] Joanna Watts MD [facility] [address] documented as of this encounter Visit Diagnoses Not on filedocumented in this encounter Care Teams Telepathist Relationship Specialty Start Date End Date Trinh Coates MD [facility] [address] [place] [address] PCP - General 01/11/10 documented as of this encounter
--- OUTSIDE RECORDS SUMMARY | 2023-09-25 11:52 | XMS_ITS | Encounter Summary ---
Author Organization [facility] Address [facility] [place] [address] Care Team Providers Care Strategic Business Development Name Role Phone Trinh Coates MD Primary Care Provider [phone] Encounter Details Date Type Department Care Team (Latest Contact Info) Description 03/20/2017 2:16 PM EST - 03/20/2017 11:59 PM [facility] [place] [address] Jhonatan Resendiz MD [facility] [place] [address] Abnormal finding on breast imaging Discharge Disposition: [...] tablet by mouth daily. 0 03/02/2017 07/12/2020 terbinafine (LAMISIL) 250 mg Tablet Take 250 [...] mouth daily. 30 tablet 3 11/03/2015 03/29/2017 DILTiazem (CARDIZEM CD) 240 mg Capsule, Sust. Release 24 hr Take 1 capsule by mouth daily. 07/26/2015 10/17/2018 furosemide (LASIX) 20 mg Tablet Take 1 [...] Take 1 capsule by mouth daily. 03/29/2017 clobetasol (TEMOVATE) 0.05 % CreamIndications:Psoria sis Apply [...] 01/22/2024 10:30 AM EST Appointment Mammography[place] [phone] Ladi Mendosa MD [facility] HEMATOLOGY [place] [address] 01/30/2024 11:30 AM EST Office Visit Dermatology at [place] [address] [place] [address] Nilda Luis MD [facility] [place] [address] 02/14/2024 7:30 AM EST [place] [address] Joanna Watts MD [facility] [place] [address] documented as of this encounter Procedures Procedure [...] obtained using a 14-gauge automated device. A Bit[employer] [place] 14G marker clip was placed. The clip [...] breast documented in this encounter Care Teams Strategic Business Development Relationship Specialty Start Date End Date Trinh Coates MD [address] [place] [address] PCP - General 01/11/10 documented as of this encounter
--- OUTSIDE RECORDS SUMMARY | 2023-09-25 11:52 | XMS_ITS | Encounter Summary ---
Author Organization Formerly [facility] [place] [address] Care Team Providers Care Seafood Preparer Name Role Phone Trinh Coates MD Primary Care Provider [phone] Encounter Details Date Type Department Care Team (Latest Contact Info) Description 03/12/2017 1:21 PM EST - 03/12/2017 11:59 PM [facility] [place] [address] Trinh Coates MD [address] [place] [address] [address] [place] [address] Encounter for screening mammogram for [...] 01/22/2024 10:30 AM EST Appointment Mammography/[place] [phone] Ladi Mendosa MD [facility] [place] [address] 01/30/2024 11:30 AM EST Office Visit Dermatology at [place] [address] [place] [phone] Nilda Luis MD [facility] [place] [address] 02/14/2024 7:30 AM EST [place] [phone] Joanna Watts MD [facility] [address] documented as of this encounter Procedures Procedure [...] cancer documented in this encounter Care Teams Seafood Preparer Relationship Specialty Start Date End Date Trinh Coates MD [address] [place] [address] [facility] 1 [place] [address] PCP - General 01/11/10 documented as of this encounter
--- OUTSIDE RECORDS SUMMARY | 2023-09-25 11:52 | XMS_ITS | Encounter Summary ---
Author Organization [facility] [address] Care Team Providers Care Research Anthropologist Name Role Phone Trinh Coates MD Primary Care Provider [phone] Encounter Details Date Type Department Care Team (Late st Contact Info) Description 03/20/2017 Notes [place] [address] Jhonatan Resendiz MD [facility] [place] [address] Social History Tobacco Use Types Packs/Day Years [...] 01/22/2024 10:30 AM EST Appointment Mammography/[place] [phone] Ladi Mendosa MD [facility] [place] [address] 01/30/2024 11:30 AM EST [facility] [address] [place] [phone] Nilda Luis MD [facility] [place] [address] 02/14/2024 7:30 AM EST [place] [phone] Joanna Watts MD [facility] [place] [address] documented as of this encounter Visit Diagnoses Not on filedocumented in this encounter Care Teams Research Anthropologist Relationship Specialty Start Date End Date Trinh Coates MD [facility] [address] [place] [address] PCP - General 01/11/10 documented as of this encounter
--- OUTSIDE RECORDS SUMMARY | 2023-09-25 11:52 | XMS_ITS | Encounter Summary ---
Author Organization [facility] Address [facility] [place] [address] Care Team Providers Care Presentation Designer Name Role Phone Trinh Coates MD Primary Care Provider [phone] Encounter Details Date Type Department Care Team (Latest Contact Info) Description 03/29/2017 9:55 AM EST Laboratory Appointment Lab [address]L [place] [phone] Malignant neoplasm of left female breast, unspecified [...] 01/22/2024 10:30 AM EST Appointment Mammography/[place] [phone] [facility] [place] [address] 01/30/2024 11:30 AM EST Office Visit Dermatology at [facility] [address] [place] [phone] [facility] [place] [address] 02/14/2024 7:30 AM EST Appointment Radiology at [facility] [place] [phone] Joanna Watts MD [facility] [place] [address] documented as of this encounter Procedures Procedure [...] unspecified site of breast COMPREHENSIVE METABOLIC PANEL Routine 03/29/2017 10:21 AM EST Malignant neoplasm of left female breast, unspecified estrogen receptor status, unspecified site of breast documented in this encounter Results * (ABNORMAL) Urinalysis Microscopic Exam (03/29/2017 2:27 PM EST) RBC, Urine 3 0 - 4 /HPF [facility] WBC, Urine 5 0 - 5 /HPF [facility] Bacteria, Urine Rare(A) None /HPF [facility] Squamous Epithelial Cells Raw Data, Urine 3 <=4 /HPF [facility] Hyaline Casts, Urine 1 0 - 2 /LPF [facility] Urine specimen obtained by clean catch procedure (specimen) 03/29/2017 2:27 PM EST 03/29/2017 2:34 PM EST Narrative Resulting Agency Comment Spec In Lab Jolie Menendez MD URINE ORDERABLES Performing Organization Address [facility] Co de Phone Number [facility] [place] [address] * (ABNORMAL) Urinalysis with reflex Culture (03/29/2017 2:27 PM EST) Glucose, Urine Dipstick Negative Negative mg/dL [facility] Protein, Urine Dipstick >=500(A) Negative mg/dL [facility] Bilirubin, Urine Dipstick Negative Negative mg/dL [facility] Comment: Clinical correlation required for positive Urine Bilirubin results as false positive may occur with some drugs and drug related products. If a false positive is suspected a serum total bilirubin should be considered if clinically indicated. Urobilinogen, Urine Dipstick Normal Normal mg/dL [facility] pH, Urn (dipstick) 5.0 5.0 - 8.0 [facility] Blood, Urine Dipstick Negative Negative mg/dL [facility] Ketone, Urine Dipstick Negative Negative mg/dL [facility] Nitrite, Urine Dipstick Negative Negative [facility] Leukocytes, Urine Dipstick Negative Negative [facility] Appearance, Urine Dipstick Hazy(A) Clear [facility] Specific [place] Urine Automated 1.024 1.002 - 1.030 [facility] Color, Urine Dipstick Yellow Yellow [facility] Reflex to Culture No [facility] Urine specimen obtained by clean catch procedure (specimen) 03/29/2017 2:27 PM EST 03/29/2017 2:34 PM EST Narrative Resulting Agency Comment Spec In Lab Jolie Menendez MD URINE ORDERABLES Performing Organization Address City/[facility]/ZIP Co de Phone Number [facility] [place] [address] * (ABNORMAL) Differential, Automated (03/29/2017 10:21 AM EST) Pathologist [facility] Neutrophil % 69.5 % [facility] Neutrophil Absolute 11.31(H) 1.70 - 6.10 x10(3)/mc L [facility] Lymph % 16.1 % [facility] Lymphocytes Abs 2.6 0.9 - 3.2 x10(3)/ L [facility] Monocyte % 8.9 % [facility] Monocyte Abs 1.4(H) 0.3 - 0.9 x10(3)/ L [facility] Eos % 2.8 % [facility] Eosinophils Abs 0.5(H) 0.0 - 0.4 x10(3)/[facility] Basophil % 1.2 % [facility] Baso Absolute 0.2(H) 0.0 - 0.1 x10(3)/ L [facility] Immature Gran % 1.50 % [facility] Comment: Immature granulocytes(IG's)percentage and absolute count will include metamyelocytes, myelocytes, and promyelocytes. Blood smears from CBCs yielding IG's will be scanned manually for concordance. If this scan disagrees with the automated IG or if promyelocytes are noted, a manual differential will be performed. Immature Gran Absolute 0.25(H) 0.00 - 0.04 x10(3)/ L [facility] Blood specimen (specimen) 03/29/2017 10:21 AM EST 03/29/2017 10:30 AM EST Narrative Resulting Agency Comment Spec In Lab Jolie Menendez MD HEMATOLOGY ORDERABL ES [facility] [place] [address] * (ABNORMAL) Hemogram (03/29/2017 10:21 AM EST) White Blood Cell 16.3(H) 4.0 - 9.5 x10(3)/ L [facility] Red Blood Cell 4.50 4.00 - 5.21 x10(6)/ L [facility] Hemoglobin 14.3 11.7 - 15.5 gm/dL [facility] Hematocrit 41.6 35.7 - 45.8 % [facility] Mean Cell Volume 92.4 82.6 - 94.4 fL [facility] Mean Cell Hemoglobin 31.8 27.1 - 32.0 pg [facility] Mean Cell Hemoglobin Concentration 34.4 31.7 - 35.0 gm/dL [facility] Platelet 341 145 - 357 x10(3)/[facility] RDW Standard Deviation 44.7 37.0 - 46.0 [facility] RDW coefficient of variation 13.1 11.5 - 14.1 % [facility] Mean Platelet Volume 9.1 7.6 - 12.9 [facility] NRBC% auto 0.0 % [facility] NRBC Absolute 0.000 0.000 - 0.000 x10(3)/[facility] Blood specimen (specimen) 03/29/2017 10:21 AM EST 03/29/2017 10:30 AM EST Narrative Resulting Agency Comment Spec In Lab Jolie Menendez MD HEMATOLOGY ORDERABL ES [facility] [place] [address] * (ABNORMAL) Comprehensive metabolic panel (non-fasting) (03/29/2017 10:21 AM EST) Glucose 134 65 - 199 mg/dL [facility] Comment:Diabetes: >=200 mg/d L plus symptoms Blood Urea Nitrogen 16 8 - 18 mg/dL [facility] Creatinine 1.01 0.70 - 1.20 mg/dL [facility] Sodium 141 135 - 145 mmol/L [facility] Potassium 3.7 3.5 - 5.0 mmol/L [facility] Comment: Please note: ??Patients with WBC >100,000 may have falsely elevated Potassium levels. ??For accurate Potassium quantification in these patients send serum separator tube (gold top) for subsequent determinations. ??Contact the Clinical Chemistry Laboratory if there are any questions. Chloride 101 98 - 107 mmol/L [facility] Carbon Dioxide 27 22 - 31 mmol/L [facility] Anion Gap 13 5 - 15 mmol/L [facility] Calcium 9.0 8.5 - 10.5 mg/dL [facility] Protein, Total 6.6 6.1 - 8.0 gm/dL [facility] Albumin 3.9 3.2 - 5.2 gm/dL [facility] Aspartate Aminotransferase 12 0 - 30 unit/L [facility] Alanine Aminotransferase 21 0 - 30 unit/L [facility] Alkaline Phosphatase 79 40 - 104 unit/L [facility] Bilirubin, Total 0.5 0.2 - 1.3 mg/dL [facility] Est Glomerular Filtration Rate 57(L) >=60 [facility] Comment: The reported eGFR should be multiplied by 1.2 for patients. The MDRD is not an appropriate measure of renal function for patients with body mass extremes or in patients with acute kidney failure. http://2threads.[employer]/DHnkdep http://2threads.[employer]/DHMCnkf Blood specimen (specimen) 03/29/2017 10:21 AM EST 03/29/2017 10:30 AM EST Narrative Resulting Agency Comment Spec In Lab Jolie Menendez MD CHEMISTRY ORDERABLE S [facility] [place] [address] documented in this encounter Visit Diagnoses Diagnosis Malignant neoplasm of left female breast, unspecified estrogen receptor status, unspecified site of breast Ureteral stone Calculus of ureter documented in this encounter Care Teams Presentation Designer Relationship Specialty Start Date End Date Trinh Coates MD [facility] [address] [facility] [address] [place] [address] PCP - General 01/11/10 documented as of this encounter
--- OUTSIDE RECORDS SUMMARY | 2023-09-25 11:52 | XMS_ITS | Encounter Summary ---
Author Organization [facility] Address [facility] [place] [address] Care Team Providers Care Rap Artist Name Role Phone Trinh Coates MD Primary Care Provider [phone] Encounter Details Date Type Department Care Team (Late st Contact Info) Description 03/28/2017 Orders [place] [phone] Jolie Menendez MD [facility] [place] [address] Malignant neoplasm of female breast, unspecified estrogen [...] AM EST Appointment Mammography/[place] [phone] Ladi Mendosa MD [facility] DR HEMATOLOGY [place] [address] 01/30/2024 11:30 AM EST Office [facility] [address] [place] [address] Nilda Luis MD [facility] [place] [place] [address] 02/14/2024 7:30 AM EST [place] [phone] Joanna Watts MD [facility] [place] [address] documented as of this encounter Results * [...] breast documented in this encounter Care Teams Rap Artist Relationship Specialty Start Date End Date Trinh Coates MD [address] [place] [address] PCP - General 01/11/10 documented as of this encounter
--- OUTSIDE RECORDS SUMMARY | 2023-09-25 11:52 | XMS_ITS | Encounter Summary ---
Author Organization [facility] Address [facility] [place] [address] Care Team Providers Care Communications Equipment Operator Name Role Phone Trinh Coates MD Primary Care Provider [phone] Encounter Details Date Type Department Care Team (Late st Contact Info) Description 03/22/2017 Orders [place] [address] Jolie Menendez MD [facility] [place] [address] Social History Tobacco Use Types Packs/Day Years [...] EST Appointment Mammography/[place] [address] Ladi Mendosa MD [facility] HEMATOLOGY [place] [address] 01/30/2024 11:30 AM EST Office Visit Dermatology at [facility] [address] [place] [address] Nilda Luis MD [facility] [place] [address] 02/14/2024 7:30 AM EST [place] [phone] Joanna Watts MD [facility] [place] [address] documented as of this encounter Visit Diagnoses Not on filedocumented in this encounter Care Teams Communications Equipment Operator Relationship Specialty Start Date End Date Trinh Coates MD [facility] [address] [facility] [address] [place] [address] PCP - General 01/11/10 documented as of this encounter
--- OUTSIDE RECORDS SUMMARY | 2023-09-25 11:52 | XMS_ITS | Encounter Summary ---
Author Organization [facility] [place] [address] Care Team Providers Care Accounting Director Name Role Phone Trinh Coates MD Primary Care Provider [phone] Encounter Details Date Type Department Care Team (Late st Contact Info) Description 03/29/2017 Notes [place] [address] Jhonatan Resendiz MD [facility] [place] [address] Social History Tobacco Use Types Packs/Day Years [...] 01/22/2024 10:30 AM EST Appointment Mammography/[place] [address] Ladi Mendosa MD [facility] DR HEMATOLOGY AND ONCOLOGY [place], [place] [address] 01/30/2024 11:30 AM EST Office Visit Dermatology at [place] [address] [place] [phone] Nilda Luis MD [facility] [place] [address] 02/14/2024 7:30 AM EST Appointment [place] [address] Joanna Watts MD [facility] [place] [address] documented as of this encounter Visit Diagnoses Not on filedocumented in this encounter Care Teams Accounting Director Relationship Specialty Start Date End Date Trinh Coates MD [facility] [address] [address] PCP - General 01/11/10 documented as of this encounter
--- OUTSIDE RECORDS SUMMARY | 2023-09-25 11:52 | XMS_ITS | Encounter Summary ---
Author Organization [facility] [place] [address] Care Team Providers Care Rn Informatics Name Role Phone Trinh Coates MD Primary Care Provider [phone] Reason for Referral * Diagnostic Test (Routine) - Closed Specialty Diagnoses / Procedures Referred By Diamante marin Referred To Contact Radiology Diagnoses Malignant neoplasm of left female breast, unspecified estrogen receptor status, unspecified site of breast Procedures MRI Breast wwo Contrast Bilat Jolie Menendez MD [facility] [place] [address] [place] [address] Referral ID Status Reason Start Date Expiration Date V isits Requested Visits Authorized [id number] Closed Specialty Service Requested 03/23/2017 05/07/2017 1 1 Encounter Details Date Type Department Care Team (Late st Contact Info) Description 03/21/2017 Orders [place] [address] Jolie Menendez MD [facility] [place] [address] Malignant neoplasm of left female [...] 01/22/2024 10:30 AM EST Appointment Mammography[place] [phone] Ladi Mendosa MD [facility] HEMATOLOGY [place] [address] 01/30/2024 11:30 AM EST Office Visit Dermatology at [place] [address] [place] [phone] Nilda Luis MD [facility] [place] [address] 02/14/2024 7:30 AM [place] [address] Joanna Watts MD [facility] [place] [address] documented as of this encounter Results * (ABNORMAL) Comprehensive metabolic panel (non-fasting) (03/29/2017 10:21 AM EST) Glucose 134 65 - 199 mg/dL [facility] Comment:Diabetes: >=200 mg/d L plus symptoms Blood Urea Nitrogen 16 8 - 18 mg/dL [facility] Creatinine 1.01 0.70 - 1.20 mg/dL [facility] Sodium 141 135 - 145 mmol/L [facility] Potassium 3.7 3.5 - 5.0 mmol/L [facility] Comment: Please note: ??Patients with WBC >100,000 may have falsely elevated Potassium levels. ??For accurate Potassium quantification in these patients send serum separator tube (gold top) for subsequent determinations. ??Contact the Clinical Chemistry Laboratory if there are any questions. Chloride 101 98 - 107 mmol/L [facility] Carbon Dioxide 27 22 - 31 mmol/L [facility] Anion Gap 13 5 - 15 mmol/L [facility] Calcium 9.0 8.5 - 10.5 mg/dL [facility] Protein, Total 6.6 6.1 - 8.0 gm/dL [facility] Albumin 3.9 3.2 - 5.2 gm/dL [facility] Aspartate Aminotransferase 12 0 - 30 unit/L [facility] Alanine Aminotransferase 21 0 - 30 unit/L [facility] Alkaline Phosphatase 79 40 - 104 unit/L [facility] Bilirubin, Total 0.5 0.2 - 1.3 mg/dL [facility] Est Glomerular Filtration Rate 57(L) >=60 [facility] Comment: The reported eGFR should be multiplied by 1.2 for patients. The MDRD is not an appropriate measure of renal function for patients with body mass extremes or in patients with acute kidney failure. http://June Blackbox.tvCompass/DHnkdep http://Ignite100/DHMCnkf Blood specimen (specimen) 03/29/2017 10:21 AM EST 03/29/2017 10:30 AM EST Narrative Resulting Agency Comment Spec In Lab Jolie Menendez MD CHEMISTRY ORDERABLE S [facility] [place] [place] [address] * MRI Breast wwo Contrast Bilat (03/27/2017 [...] contrast enhancement curve analysis was performed, using [employer] software. COMPARISON STUDIES: Compared and/or correlated with [...] breast documented in this encounter Care Teams Rn Informatics Relationship Specialty Start Date End Date Trinh Coates MD [address] [place] [address] PCP - General 01/11/10 documented as of this encounter
--- OUTSIDE RECORDS SUMMARY | 2023-09-25 11:52 | XMS_ITS | Encounter Summary ---
Author Organization [facility] [place] [address] Care Team Providers Care 911 Emergency Dispatcher Name Role Phone Trinh Coates MD Primary Care Provider [phone] Encounter Details Date Type Department Care Team (Late st Contact Info) Description 11/05/2015 Orders Only [place] [phone] Dyan Martino, RN Hypocalcemia Social History Tobacco [...] Sunday. Will have calcium level drawn at [facility] and results faxed to Dr. Lucas. Wendy [...] 01/22/2024 10:30 AM EST Appointment Mammography/[place] [phone] Ladi Mendosa MD [facility] [place] [address] 01/30/2024 11:30 AM EST Office Visit Dermatology at [place] [address] [place] [phone] Nilda Luis MD [facility] [place] [address] 02/14/2024 7:30 AM EST Appointment Radiology at [place] [phone] Joanna Watts MD [facility] [place] [address] documented as of this encounter Visit Diagnoses Diagnosis Hypocalcemia documented in this encounter Care Teams 911 Emergency Dispatcher Relationship Specialty Start Date End Date Trinh Coates MD [address] [place] [address] PCP - General 01/11/10 documented as of this encounter
--- OUTSIDE RECORDS SUMMARY | 2023-09-25 11:52 | XMS_ITS | Encounter Summary ---
Author Organization [facility] Address [facility] [place] [address] Care Team Providers Care Wellness Nurse Name Role Phone Trinh Coates MD Primary Care Provider [phone] Encounter Details Date Type Department Care Team (Latest Contact Info) Description 03/29/2017 12:58 PM EST - 03/29/2017 2:25 PM [facility] Hospital [place] [address] Jolie Menendez MD [facility] [place] [address] Malignant neoplasm of female breast, unspecified estrogen [...] 01/22/2024 10:30 AM EST Appointment Mammography[place] [phone] Ladi Mendosa MD [facility] [place] [address] 01/30/2024 11:30 AM EST Office Visit Dermatology at [facility] [address] [place] [address] Nilda Luis MD [facility] [place] [address] 02/14/2024 7:30 AM EST Appointment Radiology at [facility] [place] [address] Joanna Watts MD [facility] [place] [address] documented as of this encounter Procedures Procedure [...] breast documented in this encounter Care Teams Wellness Nurse Relationship Specialty Start Date End Date Trinh Coates MD [facility] [address] [facility] 1 [place] [address] PCP - General 01/11/10 documented as of this encounter
--- OUTSIDE RECORDS SUMMARY | 2023-09-25 11:52 | XMS_ITS | Encounter Summary ---
Author Organization [facility] Address [facility] [place] [address] Care Team Providers Care Credit Review Analyst Name Role Phone Trinh Coates MD Primary Care Provider [phone] Encounter Details Date Type Department Care Team (Latest Contact Info) Description 03/20/2017 1:48 PM EST - 03/20/2017 2:15 PM [facility] Hospital [place] [address] Javier Shaffer MD [facility] [place] [place] [address] Abnormal finding on breast imaging Discharge Disposition: [...] 01/22/2024 10:30 AM EST Appointment Mammography/[place] [phone] Ladi Mendosa MD [facility] [place] [address] 01/30/2024 11:30 AM EST Office Visit Dermatology at [place] [address] [place] [address] Nilda Luis MD [facility] [place] [address] 02/14/2024 7:30 AM EST [place] [address] Joanna Watts MD [facility] [place] [address] documented as of this encounter Procedures Procedure [...] breast documented in this encounter Care Teams Credit Review Analyst Relationship Specialty Start Date End Date Trinh Coates MD [address] [place] [address] PCP - General 01/11/10 documented as of this encounter
--- OUTSIDE RECORDS SUMMARY | 2023-09-25 11:52 | XMS_ITS | Encounter Summary ---
Author Organization [facility] Address [facility] [place] [address] Care Team Providers Care Exchange Floor Manager Name Role Phone Trinh Navarrete MD Primary Care Provider Encounter Details Date Type Department Care Team (Latest Contact Info) Description 03/20/2017 2:16 PM EST - 03/20/2017 11:59 PM [facility] Hospital [place] [address] Kim Rodriguez MD [facility] [place] [address] Abnormal finding on breast imaging Discharge Disposition: [...] 01/22/2024 10:30 AM EST Appointment Mammography[place] [phone] Ladi Mendosa MD [facility] HEMATOLOGY [place] [address] 01/30/2024 11:30 AM EST Office Visit Dermatology at [place] [address] [place] [address] Nilda Luis MD [facility] [place] [address] 02/14/2024 7:30 AM EST [place] [phone] Joanna Watts MD [facility] [place] [address] documented as of this encounter Procedures Procedure [...] obtained using a 14-gauge automated device. A [employer] 14G marker clip was placed. The clip [...] DIAGNOSIS: Invasive carcinoma PATHOLOGIC DIAGNOSIS: Invasive carcinoma Kim Rodriguez MD IMG MAMMO ORDERABL ES * Surgical Pathology Report (03/20/2017 2:54 PM EST) Final Diagnosis [id number] ? Location: 3L The signing pathologist has [...] FISH. ??Direct analysis was performed using the EventCombo Kit. ??Slide adequacy and signal enumeration were [...] factor receptor 2 testing in breast cancer: [place] Society of Clinical Oncology/College of [place] Pathologists clinical practice guideline update. J Clin Oncol. 2013 Dec 20. Reviewed by: Susana Ramirez MD Interior Design Project Manager, Molecular Pathology _ Electronically signed by: ??Susana Ramirez MD Verified: ??03/28/2017 ?Pathologist Performed at: ??-[facility] [place] [place], [place], [place] ? Addendum ADDENDUM DISCUSSION Immunohistochemist ry Studies Specimen: Left breast, core needle biopsy (A1) ER immunoreactivity: Positive ( ??>90% cancer cells with immunostaining) Stain intensity: Strong . ADDENDUM DISCUSSION VT immunoreactivity: Positive ( ??>90%) cancer cells with [...] ??The assays were performed according to the attending radiologist ??'s instructions using Anti-ER (SP1) and Anti-VT (16) antibodies. Electronically signed by: ??Mana Ly DO Verified: ??03/22/2017 ?Pathologist Performed at: ??-[facility] 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 [facility] [place], [place], [place] DISCUSSION Studies for ER, VT, and HER2 have been ordered; results will be issued in an addendum. CLINICAL INFORMATION Specimen Submitted: A - Left breast us guided bx 14 g Clinical History: Mass 1. [facility] 2. [facility] Report to: TRINH NAVARRETE SPECIMEN PROCESSING Labeled/Fixative: left breast us guided bx, formalin. Quantity/Size: 3, 0.2 cm in diameter, ranging from 1.5 to 2.2 cm in length. Tissue Description: caputo soft needle core biopsies. Ischemic Time: 6 minutes. Sections/Processin g: (T1) nsm 03/28/2017 3:44 PM EST [facility] BREAST STRUCTURE / Unknown 03/20/2017 2:54 PM EST 03/20/2017 2:54 PM EST Kim Rodriguez MD PATHOLOGY/CYTOLOGY ORDERABLES Performing Organization Address City/[facility] [place] [address] * Specimen to Pathology (03/20/2017 2:54 PM EST) AP Specimen 03/20/2017 2:54 PM EST 03/20/2017 2:54 PM EST Narrative [facility] - 03/20/2017 2:54 PM EST Specimen requisition ordered. ??Separate Pathology report to follow Kim Rodriguez MD PATHOLOGY/CYTOLOGY ORDERABLES Performing Organization Address City/[facility] [place] [address] documented in this encounter Visit Diagnoses Diagnosis Abnormal finding on breast imaging Other (abnormal) findings on radiological examination of breast documented in this encounter Administered Medications Inactive Administered Medications - up to 3 most recent administrations Medication Order MAR Action Action Date Dose Rate Site lidocaine (XYLOCAINE) 10 mg/mL (1 %) injection 10 mg 10 mg, Intradermal, ONCE, 1 dose, On Sun03/20/17 at 1445, Routine Given 03/20/2017 2:38 PM EST 10 mg documented in this encounter Care Teams Exchange Floor Manager Relationship Specialty Start Date End Date Trinh Navarrete MD [address] [place] [address] PCP - General 01/11/10 documented as of this encounter
--- OUTSIDE RECORDS SUMMARY | 2023-09-25 11:52 | XMS_ITS | Encounter Summary ---
Author Organization [facility] Address [facility]ita [facility] [place] [address] Care Team Providers Care Offset Proof Press Operator Name Role Phone Trinh Coates MD Primary Care Provider [phone] Encounter Details Date Type Department Care Team (Latest Contact Info) Description 12/09/2015 10:00 AM EDT Laboratory Appointment Lab [address] [place] [phone] Essential hypertension; History of hyperparathyroidism Social History [...] 01/22/2024 10:30 AM EST Appointment Mammography/[place] [phone] Ladi Mendosa MD [facility] [place] [address] 01/30/2024 11:30 AM EST Office Visit Dermatology at [facility] [address] [place] [phone] Nilda Luis MD [facility] [place] [address] 02/14/2024 7:30 AM EST Appointment [place] [phone] Joanna Watts MD [facility] [place] [place] [address] documented as of this encounter Procedures Procedure Name Priority Date/Time Associated Diagnosis Comments PTH Routine 12/09/2015 10:20 AM EDT History of hyperparathyroidism CALCIUM Routine 12/09/2015 10:20 AM EDT Essential hypertension documented in this encounter Results * PTH (12/09/2015 10:20 AM EDT) Parathyroid Hormone 18 15 - 65 pg/mL [facility] Blood specimen (specimen) 12/09/2015 10:20 AM EDT 12/09/2015 10:25 AM EDT Narrative Resulting Agency Comment Spec In Lab Valentina Lucas MD CHEMISTRY ORDERAB LES Performing Organization Address City/[facility]/ZIP Co de Phone Number [facility] [place] [place] [address] * Calcium (12/09/2015 10:20 AM EDT) Calcium 9.3 8.5 - 10.5 mg/dL [facility] Blood specimen (specimen) 12/09/2015 10:20 AM EDT 12/09/2015 10:25 AM EDT Narrative Resulting Agency Comment Spec In Lab Valentina Lucas MD CHEMISTRY ORDERAB LES Performing Organization Address City/[facility]/ZIP Co de Phone Number [facility] [place] [address] documented in this encounter Visit Diagnoses Diagnosis Essential hypertension Unspecified essential hypertension History of hyperparathyroidism Personal history of other endocrine, metabolic, and immunity disorders documented in this encounter Care Teams Offset Proof Press Operator Relationship Specialty Start Date End Date Trinh Coates MD [address] [place] [address] PCP - General 01/11/10 documented as of this encounter
--- OUTSIDE RECORDS SUMMARY | 2023-09-25 11:52 | XMS_ITS | Encounter Summary ---
Author Organization [facility] [place] [address] Care Team Providers Care Cookie Mixer Helper Name Role Phone Trinh Coates MD Primary Care Provider [phone] Reason for Referral * Diagnostic Test (Routine) - Closed Specialty Diagnoses / Procedures Referred By Diamante marin Referred To Contact Radiology Diagnoses Malignant neoplasm of left female breast, unspecified estrogen receptor status, unspecified site of breast Procedures MRI Breast wwo Contrast Jolie Butterfield MD [facility] [place] [address] [place] [address] Referral ID Status Reason Start Date Expiration Date V isits Requested Visits Authorized [id number] Closed Specialty Service Requested 03/23/2017 05/07/2017 1 1 Reason for Visit * Diagnostic Test (Routine) - Closed Specialty Diagnoses / Procedures Referred By Diamante marin Referred To Contact Radiology Diagnoses Malignant neoplasm of left female breast, unspecified estrogen receptor status, unspecified site of breast Procedures MRI Breast wwo Contrast Jolie Butterfield MD [facility] [place] [address] [place] [address] Referral ID Status Reason Start Date Expiration Date V isits Requested Visits Authorized [id number] Closed Specialty Service Requested 03/23/2017 05/07/2017 1 1 Encounter Details Date Type Department Care Team (Latest Contact Info) Description 03/27/2017 6:09 PM EST - 03/27/2017 11:59 PM EST Hospital Encounter MRI at [facility] [place] [address] Jolie Menendez MD [facility] [place] [address] Malignant neoplasm of left female breast, unspecified [...] 01/22/2024 10:30 AM EST Appointment Mammography/[place] [address] Ladi Mendosa MD [facility] [address] [place] [address] 01/30/2024 11:30 AM EST [facility] [address] [place] [address] Nilda Luis MD [facility] [place] [place] [address] 02/14/2024 7:30 AM EST Appointment Radiology at [facility] [place] [address] Joanna Watts MD [facility] [place] [address] documented as of this encounter Procedures Procedure [...] contrast enhancement curve analysis was performed, using [employer] software. COMPARISON STUDIES: Compared and/or correlated with [...] in the chest wall or skin.. Jolie ALMARAZ MRI ORDERABLES documented in this encounter Visit [...] mLs documented in this encounter Care Teams Cookie Mixer Helper Relationship Specialty Start Date End Date Trinh Coates MD [facility] [address] [place] [address] PCP - General 01/11/10 documented as of this encounter
--- OUTSIDE RECORDS SUMMARY | 2023-09-25 11:52 | XMS_ITS | Encounter Summary ---
Author Organization [place] [address] Care Team Providers Care Open Hearth Furnace Laborer Name Role Phone Trinh Coates MD Primary Care Provider [phone] Encounter Details Date Type Department Care Team (Latest Contact Info) Description 01/07/2016 1:31 PM EST - 01/07/2016 11:59 PM [facility] Hospital [place] [address] Trinh Coates MD [facility] [address] [place] [address] Encounter for screening mammogram for [...] 01/22/2024 10:30 AM EST Appointment Mammography/[place] [address] Ladi Mendosa MD [facility] [place] [address] 01/30/2024 11:30 AM EST Office Visit Dermatology at [facility] [address] [place] [phone] Nilda Luis MD [facility] [place] [address] 02/14/2024 7:30 AM EST [place] [address] Joanna Watts MD [facility] [address] documented as of this encounter Procedures Procedure [...] No mammographic evidence of malignancy. RECOMMENDATION: The [place] [employer] and The Society of [...] mammogram documented in this encounter Care Teams Open Hearth Furnace Laborer Relationship Specialty Start Date End Date Trinh Coates MD [address] [place] [address] PCP - General 01/11/10 documented as of this encounter
--- OUTSIDE RECORDS SUMMARY | 2023-09-25 11:52 | XMS_ITS | Encounter Summary ---
Author Organization Formerly [facility] [place] [address] Care Team Providers Care Inspector General Name Role Phone Trinh Coates MD Primary Care Provider Reason for Referral * Diagnostic Test (Routine) - Specialty Diagnoses / Procedures Referred By Contrenan t Referred To Contact Radiology Diagnoses Malignant neoplasm of upper-outer quadrant of left breast in female, estrogen receptor positive Procedures CT Angiogram Abdomen & Pelvis CT Angiogram Abdomen Andre Gimenez MD [facility] [place] [address] [facility] [place] [address] Referral ID Status Reason Start Date Expiration Date Visits Requested Visits Authorized [id number] Specialty Service Requested 04/05/2017 05/19/2017 1 1 * Diagnostic Test (Routine) - Closed Specialty Diagnoses / Procedures [facility] Referred To Contact Radiology Diagnoses Malignant neoplasm of left female breast, unspecified estrogen receptor status, unspecified site of breast Procedures CT Chest Abdomen Pelvis w Contrast (Generic) Jolie Menendez MD [facility] [place] [address] [facility] [place] [address] Referral ID Status Reason Start Date Expiration Date V isits Requested Visits Authorized [id number] Closed Specialty Service Requested 04/04/2017 05/19/2017 3 3 Reason for Visit * Diagnostic Test (Routine) - Closed Specialty Diagnoses / Procedures Referred By Contrenan marin Referred To Contact Radiology Diagnoses Malignant neoplasm of left female breast, unspecified estrogen receptor status, unspecified site of breast Procedures CT Chest Abdomen Pelvis w Contrast (Generic) Jolie Menendez MD [facility] [address] [facility] [place] [address] Referral ID Status Reason Start Date Expiration Date V isits Requested Visits Authorized [id number] Closed Specialty Service Requested 04/04/2017 05/19/2017 3 3 Encounter Details Date Type Department Care Team (Latest Contact Info) Description 04/11/2017 11:09 AM EST - 04/11/2017 1:27 PM EST Hospital [place] [address] Andre Gimenez MD [facility] [place] [address] Malignant neoplasm of left female breast, unspecified [...] 01/22/2024 10:30 AM EST Appointment Mammography/[place] [phone] Ladi Mendosa MD [facility] [place] [address] 01/30/2024 11:30 AM EST Office Visit Dermatology at [address] [phone] Nilda Luis MD [facility] [place] [address] 02/14/2024 7:30 AM [place] [address] Joanna Watts MD [facility] [place] [address] documented as of this encounter Procedures Procedure [...] the anterior perimbilicalabdominal wall. Andre Gimenez MD [facility] CT ORDERABLES * CT Chest Abdomen Pelvis [...] mLs documented in this encounter Care Teams Inspector General Relationship Specialty Start Date End Date Trinh Coates MD [facility] [address] [place] [address] PCP - General 01/11/10 documented as of this encounter
--- OUTSIDE RECORDS SUMMARY | 2023-09-25 11:52 | XMS_ITS | Encounter Summary ---
Author Organization [facility] Address [facility] [place] [address] Care Team Providers Care Pricer Name Role Phone Trinh Coates MD Primary Care Provider Encounter Details Date Type Department Care Team (Late st Contact Info) Description 03/29/2017 Notes Only Care Management [facility] [place] [phone] Kassi Gates Social History Tobacco Use Types [...] 12:29 PM EST OFFICE OF CARE MANAGEMENT/CONTINUING SERVICE CENTER SPECIALIST Reason for referral: Wendy Sandoval is a 51 y/o, woman who is seen for surgical consultation following a recent dx of ER/PA+ left breast IDC. Drop Crew Laborer Diazo Technician met with pt to complete a psychosocial assessment and to explain the role of social work in the breast program. Pt was encouraged to contact me or SESAR Castro, VICENTE if she has any questions or concerns. Living arrangements/social supports: Pt lives in [facility] with her , Phillip. She reports that [...] Menendez today following a recent dx of ER/PA+ left breast IDC. Pt appeared overwhelmed and [...] with their psychosocial needs. Kassi Gates BA Drop Crew Laborer Diazo Technician [facility]/[place] [address] documented in this encounter Plan of Treatment Upcoming Encounters Date Type Department Care Team (Late st Contact Info) Description 01/22/2024 10:30 AM EST Appointment Mammography/[place] [address] Ladi Mendosa MD [facility] [place] [address] 01/30/2024 11:30 AM EST Office Visit Dermatology at [facility] [address] [place] [address] Nilda Luis MD [facility] [place] [address] 02/14/2024 7:30 AM [place] [phone] Joanna Watts MD [facility] [address] documented as of this encounter Visit Diagnoses Not on filedocumented in this encounter Care Teams Pricer Relationship Specialty Start Date End Date Trinh Coates MD [facility] [facility] [address] [place] [address] PCP - General 01/11/10 documented as of this encounter
--- OUTSIDE RECORDS SUMMARY | 2023-09-25 11:52 | XMS_ITS | Encounter Summary ---
Author Organization [facility] [place] [address] Care Team Providers Care Assistant Food Service Director Name Role Phone Trinh Coates MD Primary Care Provider [phone] Encounter Details Date Type Department Care Team (Latest Contact Info) Description 03/29/2017 2:45 PM EST - 03/29/2017 11:59 PM [facility] Hospital [place] [address] Jolie Menendez MD [facility] [place] [address] Discharge Disposition: Home Social History Tobacco Use [...] 01/22/2024 10:30 AM EST Appointment Mammography/[place] [address] Ladi Mendosa MD [facility] [place] [address] 01/30/2024 11:30 AM EST Office Visit Dermatology at [facility] [address] [place] [phone] Nilda Luis MD [facility] [place] [address] 02/14/2024 7:30 AM EST [place] [address] Joanna Watts MD [facility] [place] [address] documented as of this encounter Procedures Procedure [...] PM EST 03/29/2017 3:20 PM EST Narrative [facility] - 03/29/2017 3:20 PM EST Specimen requisition ordered. ??Separate Pathology report to follow Kim Rodriguez MD PATHOLOGY/CYTOLOGY ORDERABLES [facility] [place] [address] documented in this encounter Visit Diagnoses Not [...] mg documented in this encounter Care Teams Assistant Food Service Director Relationship Specialty Start Date End Date Trinh Coates MD [address] [place] [address] PCP - General 01/11/10 documented as of this encounter
--- OUTSIDE RECORDS SUMMARY | 2023-09-25 11:52 | XMS_ITS | Encounter Summary ---
Author Organization [facility] [place] [address] Care Team Providers Care Director Epidemiology Name Role Phone Trinh Coates MD Primary Care Provider [phone] Encounter Details Date Type Department Care Team (Late st Contact Info) Description 03/22/2017 Telephone [place] [phone] Rasheeda Trent RN Social History Tobacco Use [...] a 51 y.o. female with newly diagnosed ER/WV+/HER2 pat pending left breast IDC (left breast U/S guided biopsy 03/20/2017 at [facility]). Wendy sounds positive and has support. Her will accompany her to appointments. She appears to be coping well but is anxious to meet with a breast surgeon to determine a treatment plan. She is not interested in having a trained volunteer from [employer] ([employer]) patient support corps accompany her to provider appts. She has access to [facility]. Plan: Appointments for breast MRI and surgical [...] 01/22/2024 10:30 AM EST Appointment Mammography/[place] [address] Ladi Mendosa MD [facility] [place] [address] 01/30/2024 11:30 AM EST Office Visit Dermatology at [facility] [address] [place] [address] Nilda Luis MD [facility] [place] [address] 02/14/2024 7:30 AM [place] [phone] Joanna Watts MD [facility] [place] [address] documented as of this encounter Visit Diagnoses Not on filedocumented in this encounter Care Teams Director Epidemiology Relationship Specialty Start Date End Date Trinh Coates MD [facility] [address] [place] [address] PCP - General 01/11/10 documented as of this encounter
--- OUTSIDE RECORDS SUMMARY | 2023-09-25 11:52 | XMS_ITS | Encounter Summary ---
Author Organization [facility] [place] [address] Care Team Providers Care Hospital Staff Pharmacist Name Role Phone Trinh Coates MD Primary Care Provider [phone] Reason for Referral * Diagnostic Test (Routine) - Specialty Diagnoses / Procedures Referred By Contac t Referred To Contact Radiology Diagnoses Malignant neoplasm of left female breast, unspecified estrogen receptor status, unspecified site of breast Procedures NM Whole Body Bone Scan Jolie Menendez MD [facility] [place] [address] [facility] [employer] [place] [address] Referral ID Status Reason Start Date Expiration Date Visits Requested Visits Authorized [id number] Specialty Service Requested 04/02/2017 04/02/2018 3 3 Reason for Visit * Diagnostic Test (Routine) - Closed Specialty Diagnoses / Procedures Referred By Contac t Referred To Contact Radiology Diagnoses Malignant neoplasm of left female breast, unspecified estrogen receptor status, unspecified site of breast Procedures CT Chest Abdomen Pelvis w Contrast (Generic) Jolie Menendez MD [facility] [place] [address] [facility] [place] [address] Referral ID Status Reason Start Date Expiration Date V isits Requested Visits Authorized [id number] Closed Specialty Service Requested 04/04/2017 05/19/2017 3 3 Encounter Details Date Type Department Care Team (Latest Contact Info) Description 04/11/2017 10:36 AM EST - 04/11/2017 11:08 AM [facility] Hospital Encounter [place] [phone] Jolie Menendez MD [facility] [place] [address] Malignant neoplasm of left female breast, unspecified [...] 01/22/2024 10:30 AM EST Appointment Mammography/[place] [address] Ladi Mendosa MD [facility] [place] [address] 01/30/2024 11:30 AM EST Office Visit Dermatology at [facility] [address] [place] [address] Nilda Luis MD [facility] [place] [address] 02/14/2024 7:30 AM EST Appointment Radiology at [facility] [place] [phone] Joanna Watts MD [facility] [place] [address] documented as of this encounter Procedures Procedure Name Priority Date/Time Associated Diagnosis Comments NC BONE SCAN WHOLE BODY Routine 04/11/2017 2:00 PM EST Malignant neoplasm of left female breast, unspecified estrogen receptor status, unspecified site of breast documented in this encounter Results * NC Whole Body Bone Scan (04/11/2017 2:00 PM EST) Anatomical Region Laterality Modality Nuclear Medicine Impressions 04/11/2017 4:59 PM EST No skeletal metastasis. I have personally reviewed the image(s) and the residents interpretation and agree with the findings, Dinesh Kearney at 04/11/2017 4:59 PM Narrative 04/11/2017 4:59 PM EST EXAMINATION: NC WHOLE BODY BONE SCAN CLINICAL HISTORY: locally [...] Note Dinesh Kearney MD - 04/11/2017 EXAMINATION: NC WHOLE BODY BONE SCAN CLINICAL HISTORY: locally [...] mCi documented in this encounter Care Teams Hospital Staff Pharmacist Relationship Specialty Start Date End Date Trinh Coates MD [address] [place] [address] PCP - General 01/11/10 documented as of this encounter
--- OUTSIDE RECORDS SUMMARY | 2023-09-25 11:52 | XMS_ITS | Encounter Summary ---
Author Organization [facility] Address [facility] [place] [address] Care Team Providers Care National Sales Executive Name Role Phone Trinh Coates MD Primary Care Provider [phone] Encounter Details Date Type Department Care Team (Late st Contact Info) Description 11/09/2015 Telephone [place] [phone] Valentina Lucas MD [facility] [place] [address] Social History Tobacco Use Types Packs/Day Years [...] of her normal calcium level (8.7) last Cliff, I told her she can experiment with [...] 01/22/2024 10:30 AM EST Appointment Mammography/DXA at [place] [phone] Ladi Mendosa MD [facility] [place] [address] 01/30/2024 11:30 AM EST Office Visit Dermatology at [address] [phone] Nilda Luis MD [facility] [place] [address] 02/14/2024 7:30 AM EST Appointment Radiology at [place] [phone] Joanna Watts MD [facility] [place] [address] documented as of this encounter Visit Diagnoses Not on filedocumented in this encounter Care Teams National Sales Executive Relationship Specialty Start Date End Date Trinh Coates MD [address] [place] [address] PCP - General 01/11/10 documented as of this encounter
--- OUTSIDE RECORDS SUMMARY | 2023-09-25 11:52 | XMS_ITS | Encounter Summary ---
Author Organization [facility] Address [facility] [place] [address] Care Team Providers Care Customer Marketing Manager Name Role Phone Trinh Coates MD Primary Care Provider [phone] Encounter Details Date Type Department Care Team (Latest Contact Info) Description 03/20/2017 1:45 PM EST - 03/20/2017 1:47 PM EST Hospital En[place] [address] Javier Shaffer MD [facility] [place] [address] Abnormal finding on breast imaging Discharge Disposition: [...] 01/22/2024 10:30 AM EST Appointment Mammography/[place] [phone] Ladi Mendosa MD [facility] [place] [address] 01/30/2024 11:30 AM EST Office Visit Dermatology at [place] [address] [place] [address] Nilda Luis MD [facility] [place] [address] 02/14/2024 7:30 AM EST Appointment [place] [address] Joanna Watts MD [facility] [place] [address] documented as of this encounter Procedures Procedure Name Priority Date/Time Associated Diagnosis Comments MAMMO CALL BACK DIAGNOSTIC STROM WITHOUT CAD LEFT Routine 03/20/2017 2:14 PM [...] breast documented in this encounter Care Teams Customer Marketing Manager Relationship Specialty Start Date End Date Trinh Coates MD [address] [place] [address] PCP - General 01/11/10 documented as of this encounter
--- OUTSIDE RECORDS SUMMARY | 2023-09-25 11:52 | XMS_ITS | Encounter Summary ---
Author Organization [facility] [place] [address] Care Team Providers Care Silk Top Hat Body Maker Name Role Phone Trinh Coates MD Primary Care Provider [phone] Reason for Referral * Diagnostic Test (Routine) - Closed Specialty Diagnoses / Procedures Referred By Contac t Referred To Contact Radiology Diagnoses Malignant neoplasm of left female breast, unspecified estrogen receptor status, unspecified site of breast Procedures CT Chest Abdomen Pelvis w Contrast (Generic) Jolie Menendez MD [facility] [place] [address] [facility] [place] [address] Referral ID Status Reason Start Date Expiration Date V isits Requested Visits Authorized [id number] Closed Specialty Service Requested 04/04/2017 05/19/2017 3 3 * Diagnostic Test (Routine) - Specialty Diagnoses / Procedures Referred By Contac t Referred To Contact Radiology Diagnoses Malignant neoplasm of left female breast, unspecified estrogen receptor status, unspecified site of breast Procedures NM Whole Body Bone Scan Jolie Menendez MD [facility] [place] [address] [facility] [place] [address] Referral ID Status Reason Start Date Expiration Date Visits Requested Visits Authorized [id number] Specialty Service Requested 04/02/2017 04/02/2018 3 3 Encounter Details Date Type Department Care Team (Late st Contact Info) Description 04/02/2017 Orders Only General Surgery at [place] [phone] Jolie Menendez MD [facility] [place] [address] Malignant neoplasm of left female breast, unspecified [...] 01/22/2024 10:30 AM EST Appointment Mammography/[place] [address] Ladi Mendosa MD [facility] [place] [address] 01/30/2024 11:30 AM EST Office Visit Dermatology at [address] [phone] Nilda Luis MD [facility] [place] [address] 02/14/2024 7:30 AM EST Appointment Radiology at [place] [phone] Joanna Watts MD [facility] [place] [address] documented as of this encounter Results * [...] at 04/11/2017 4:59 PM Jolie Menendez MD [facility] ORDERABLES * CT Chest Abdomen Pelvis w [...] positive documented in this encounter Care Teams Silk Top Hat Body Maker Relationship Specialty Start Date End Date Trinh Coates MD [address] [place] [address] PCP - General 01/11/10 documented as of this encounter
--- OUTSIDE RECORDS SUMMARY | 2023-09-25 11:52 | XMS_ITS | Encounter Summary ---
Author Organization [place] [address] Care Team Providers Care Nailing Machine Operator Name Role Phone Trinh Coates MD Primary Care Provider [phone] Reason for Referral * Diagnostic Test (Routine) - Specialty Diagnoses / Procedures Referred By Diamante marin Referred To Contact Radiology Diagnoses Malignant neoplasm of upper-outer quadrant of left breast in female, estrogen receptor positive Procedures CT Angiogram Abdomen & Pelvis CT Angiogram Abdomen Mali Lakhani MD [facility] [place] [address] [facility] [place] [address] Referral ID Status Reason Start Date Expiration Date Visits Requested Visits Authorized [id number] Specialty Service Requested 04/05/2017 05/19/2017 1 1 Reason for Visit * Reason Comments Advice Only breast recon consult Encounter Details Date Type Department Care Team (Late st Contact Info) Description 04/05/2017 10:00 AM EST Office [place] [address] Mali Lakhani MD [facility] [place] [address] Malignant neoplasm of upper-outer quadrant [...] appointment. Feel free to call our office [phone] if you have any questions or concerns. [...] 1 surgery, but her last surgeries at [facility] went very smoothly with anesthesia. She currently wears a size C-cup bra and wishes to be the same size after surgery. The patient's mother, aunt, cousin, and her maternal aunt have all had breast cancer. She denies smoking cigarettes. 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 The Specialists On Call informational link on breast reconstruction was received: [...] LARYNGEAL performed by Valentina Lucas MD at [facility] MAIN OR ??? PRO EXPLORE PARATHYROID GLANDS N/A 11/02/2015 PARATHYROIDECTOMY OR EXPLORATION OF PARATHYROID(S) performed by Valentina Lucas MD at [facility] MAIN OR ??? PRO THYMECTOMY, TRANSCERVICAL N/A 11/02/2015 THYMECTOMY, TRANSCERVICAL APPROACH performed by Valentina Lucas MD at [facility] MAIN OR ??? SHOULDER SURGERY [...] option of implant based reconstruction with an memorial adviser placed initially. The longevity ofimplants were discussed [...] to her visit today she watched the Specialists On Call informational link on breast reconstruction. I also [...] informed decision 5. Recommended web sites including: www.surgery.med.[facility] [email or web address] www.breastimplantsafety.org www.breasthealthonline.com 6. Brochure on the Section of Plastic Surgery's policy on cigarette smoking 7. My business card including contact information and information on how to access [employer]. The risks of these procedures were covered [...] the safety of silicone implants and the [place] brochure: Silicone implants, making an informed decision. [...] Dr. Menendez Procedure: Breast reconstruction CPT: SALVADOR: 11346, rib resection: 06282 Surgical site: Breast, abdomen Side: Bilateral Anesthesia: [...] to surgery unless otherwise advised by patient's PCP/Bilingual Instructor for cardiac symptoms, to perform the pre-op [...] 01/22/2024 10:30 AM EST Appointment Mammography[place] [address] Ladi Mendosa MD [facility] [place] [address] 01/30/2024 11:30 AM EST Office Visit Dermatology at [address] [phone] Nilda Luis MD [facility] [place] [address] 02/14/2024 7:30 AM EST Appointment Radiology at [place] [phone] Joanna Watts MD [facility] [place] [address] documented as of this encounter Procedures Procedure [...] positive documented in this encounter Care Teams Nailing Machine Operator Relationship Specialty Start Date End Date Trinh Coates MD [address] [place] [address] PCP - General 01/11/10 documented as of this encounter
--- OUTSIDE RECORDS SUMMARY | 2023-09-25 11:53 | XMS_ITS | Encounter Summary ---
Author Organization [facility] [place] [address] Care Team Providers Care Poacher Operator Name Role Phone Trinh Coates MD Primary Care Provider [phone] Encounter Details Date Type Department Care Team (Latest Contact Info) Description 11/07/2012 9:56 AM EDT - 11/07/2012 11:59 PM EDT Hospital [place] [phone] Abnormal findings on diagnostic imaging of breast [...] 01/22/2024 10:30 AM EST Appointment Mammography/[place] [address] Ladi Mendosa MD [facility] HEMATOLOGY [place] [address] 01/30/2024 11:30 AM EST Office Visit Dermatology at [address] [address] Nilda Luis MD [facility] [address] 02/14/2024 7:30 AM EST [place] [address] Joanna Watts MD [facility] [place] [address] documented as of this encounter Procedures Procedure [...] the procedure without a resident. Home phone: [phone] Work phone: [phone] Narrative 11/11/2012 12:34 PM EDT VACUUM ASSISTED [...] are present on specimen digital X-ray. A Categoricalrk Eviva-Stereo 13 Cylinder marker clip was placed. [...] the procedure without a resident. Home phone: [phone] Work phone: [phone] Usman Payne MD IMG MAMMO ORDERABLES documented in this encounter Visit Diagnoses Diagnosis Abnormal findings on diagnostic imaging of breast Other (abnormal) findings on radiological examination of breast documented in this encounter Care Teams Poacher Operator Relationship Specialty Start Date End Date Trinh Coates MD [address] [place] [address] PCP - General 01/11/10 documented as of this encounter
--- OUTSIDE RECORDS SUMMARY | 2023-09-25 11:53 | XMS_ITS | Encounter Summary ---
Author Organization [facility] Address [facility] [place] [address] Care Team Providers Care Mixed Animal Veterinarian Name Role Phone Trinh Coates MD Primary Care Provider [phone] Encounter Details Date Type Department Care Team (Late st Contact Info) Description 08/13/2014 Ancillary Procedure [place] [address] Trinh Coates MD [address] [place] [address] [facility] [address] [place] [address] Social History Tobacco Use Types [...] 01/22/2024 10:30 AM EST Appointment Mammography/[place] [phone] Ladi Mendosa MD [facility] [place] [address] 01/30/2024 11:30 AM EST Office Visit Dermatology at [facility] [address] [place] [address] Nilda Luis MD [facility] [place] [address] 02/14/2024 7:30 AM EST [place] [phone] Joanna Watts MD [facility] [place] [address] documented as of this encounter Procedures Procedure Name Priority Date/Time Associated Diagnosis Comments FILM LIBRARY STORAGE ONLY DX HAND Routine 08/13/2014 12:00 AM EDT documented in this encounter Results * Film Library- Storage Only DX Hand (08/13/2014 12:00 AM EDT) Narrative [facility] - 12/01/2021 4:34 AM EDT This exam is auto-finalizing. It's purpose is for storage only. Trinh Coates MD IMG FILM LIBRARY ORD ERABLES Performing Organization Address City/State/[facility] Co de Phone Number [place], [place] documented in this encounter Visit Diagnoses Not on filedocumented in this encounter Care Teams Mixed Animal Veterinarian Relationship Specialty Start Date End Date Trinh Coates MD [facility] [address] [place] [address] PCP - General 01/11/10 documented as of this encounter
--- OUTSIDE RECORDS SUMMARY | 2023-09-25 11:53 | XMS_ITS | Encounter Summary ---
Author Organization [facility] [place] [address] Care Team Providers Care Oyster Cultivator Name Role Phone Trinh Coates MD Primary Care Provider [phone] Encounter Details Date Type Department Care Team (Latest Contact Info) Description 05/20/2013 12:59 PM EDT - 05/20/2013 11:59 PM EDT Hospital En[place] [address] CLINIC, Trinh Medina MD [facility] [address] [place] [address] Abnormal mammogram Discharge Disposition: Home [...] AM EST Appointment Mammography/[place] [address] Ladi Mendosa MD [facility] HEMATOLOGY [place] [address] 01/30/2024 11:30 AM EST Office Visit Dermatology at [address] [address] Nilda Luis MD [facility] [place] [address] 02/14/2024 7:30 AM EST [place] [address] Joanna Watts MD [facility] [place] [address] documented as of this encounter Procedures Procedure [...] unspecified documented in this encounter Care Teams Oyster Cultivator Relationship Specialty Start Date End Date Trinh Coates MD [address] [place] [address] PCP - General 01/11/10 documented as of this encounter
--- OUTSIDE RECORDS SUMMARY | 2023-09-25 11:53 | XMS_ITS | Encounter Summary ---
Author Organization [facility] Address [facility] [place] [address] Care Team Providers Care Professional Organizer Name Role Phone Trinh Coates MD Primary Care Provider [phone] Encounter Details Date Type Department Care Team (Late st Contact Info) Description 04/13/2014 Telephone Dermatology at [facility] [address] [place] [phone] Ernestine Gaines MD [facility] [address] [place] [address] Social History Tobacco Use Types Packs/Day Years [...] % Cream would like it called into [facility] documented in this encounter Plan of Treatment Upcoming Encounters Date Type Department Care Team (Late st Contact Info) Description 01/22/2024 10:30 AM EST Appointment Mammography/[place] [phone] Ladi Mendosa MD [facility] [place] [address] 01/30/2024 11:30 AM EST Office Visit Dermatology at [facility] [address] [place] [address] Nilda Luis MD [facility] [place] [address] 02/14/2024 7:30 AM EST Appointment Radiology at [facility] [place] [address] Joanna Watts MD [facility] [place] [address] documented as of this encounter Visit Diagnoses Not on filedocumented in this encounter Care Teams Professional Organizer Relationship Specialty Start Date End Date Trinh Coates MD [facility] [address] [place] [address] PCP - General 01/11/10 documented as of this encounter
--- OUTSIDE RECORDS SUMMARY | 2023-09-25 11:53 | XMS_ITS | Encounter Summary ---
Author Organization [facility] Address [facility] [place] [address] Care Team Providers Care Cast Shell Grinder Name Role Phone Trinh Coates MD Primary Care Provider [phone] Encounter Details Date Type Department Care Team (Late st Contact Info) Description 03/30/2014 Telephone Dermatology at [facility] [address] [place] [address] Ernestine Gaines MD [facility] [address] [facility] [address] Social History Tobacco Use Types Packs/Day Years [...] her prescription for clobetasol be sent to [facility] [address] [place] [address], [facility] [address] [place] [address] since it is cheaper. Please advise when her prescription has been sent, and I can notify her at [phone]. Thank you, Kamilla * Telephone Encounter - Ander Mcfarland - 03/30/2014 10:48 AM EST PATIENT CALLED TODAY WOULD LIKE A REFILL ON clobetasol (TEMOVATE) 0.05 % cream PATIENTS #[phone] documented in this encounter Plan of Treatment Upcoming Encounters Date Type Department Care Team (Late st Contact Info) Description 01/22/2024 10:30 AM EST Appointment Mammography/[place] [address] Ladi Mendosa MD [facility] [place] [address] 01/30/2024 11:30 AM EST Office Visit Dermatology at [place] [address] [place] [address] Nilda Luis MD [facility] [place] [address] 02/14/2024 7:30 AM EST Appoint[place] [address] Joanna Watts MD [facility] [place] [address] documented as of this encounter Visit Diagnoses Not on filedocumented in this encounter Care Teams Cast Shell Grinder Relationship Specialty Start Date End Date Trinh Coates MD [address] [place] [address] PCP - General 01/11/10 documented as of this encounter
--- OUTSIDE RECORDS SUMMARY | 2023-09-25 11:53 | XMS_ITS | Encounter Summary ---
Author Organization [facility] [place] [address] Care Team Providers Care Otr [employer] Truck Driver Name Role Phone Trinh Coates MD Primary Care Provider [phone] Reason for Visit * Reason Onset Date Comments Medication Refill 04/07/2014 Encounter Details Date Type Department Care Team (Late st Contact Info) Description 04/07/2014 Refill Dermatology at [address] [phone] Eliseo Sorensen III, MD [facility] [place] [address] Psoriasis Social History Tobacco Use Types Packs/Day [...] 10:30 AM EST Appointment Mammography/[place] [address] Ladi Mendosa MD [facility] [place] [address] 01/30/2024 11:30 AM EST Office Visit Dermatology at [place] [address] [place] [phone] Nilda Luis MD [facility] [place] [address] 02/14/2024 7:30 AM EST Appointment [place] [address] Joanna Watts MD [facility] [place] [address] documented as of this encounter Visit Diagnoses Diagnosis Psoriasis Other psoriasis documented in this encounter Care Teams [employer] Truck Driver Relationship Specialty Start Date End Date Trinh Coates MD [facility] [address] [place] [address] PCP - General 01/11/10 documented as of this encounter
--- OUTSIDE RECORDS SUMMARY | 2023-09-25 11:53 | XMS_ITS | Encounter Summary ---
Author Organization [facility] [place] [address] Care Team Providers Care Lab Intern Name Role Phone Trinh Coates MD Primary Care Provider Reason for Visit * Reason Onset Date Comments Pre Procedure Call 10/08/2013 Encounter Details Date Type Department Care Team (Late st Contact Info) Description 10/08/2013 Telephone Dermatology at [facility] [address] [place] [address] Becki Linares LPN Pre Procedure [...] 01/22/2024 10:30 AM EST Appointment Mammography/[place] [address] Ladi Mendosa MD [facility] [place] [address] 01/30/2024 11:30 AM EST Office Visit Dermatology at [facility] [address] [place] [address] Nilda Luis MD [facility] [address] 02/14/2024 7:30 AM EST Appointment [place] [address] Joanna Watts MD [facility] [place] [address] documented as of this encounter Visit Diagnoses Not on filedocumented in this encounter Care Teams Lab Intern Relationship Specialty Start Date End Date Trinh Coates MD [facility] [address] [place] [address] PCP - General 01/11/10 documented as of this encounter
--- OUTSIDE RECORDS SUMMARY | 2023-09-25 11:53 | XMS_ITS | Encounter Summary ---
Author Organization [facility] [place] [address] Care Team Providers Care Land Inspector Name Role Phone Trinh Coates MD Primary Care Provider [phone] Reason for Visit * Diagnostic Test (Routine) - Closed Specialty Diagnoses / Procedures Referred By Diamante marin Referred To Contact Radiology Diagnoses Hyperparathyroidism, primary Procedures NM Parathyroid w/Spect & Thyroid Imaging Valentina Lucas MD [facility] [place] [address] [place] [address] Referral ID Status Reason Start Date Expiration Date V isits Requested Visits Authorized [id number] Closed Specialty Service Requested 09/25/2015 09/24/2016 3 3 Encounter Details Date Type Department Care Team (Latest Contact Info) Description 10/15/2015 10:48 AM EDT Hospital Encounter [place] [address] Valentina Lucas MD [facility] [place] [address] Discharge Disposition: Home Social History [...] hypertension,Hypercalce osmin Take by mouth daily. 016 clobetasol (TEMOVATE) 0.05 % CreamIndications:Psoria sis Apply to affected areas on knees, elbows and hands twice daily for two week cycles as needed. 60 g 3 04/16/2014 10/20/2019 terbinafine (LAMISIL) 250 mg tablet Take 250 [...] 01/22/2024 10:30 AM EST Appointment Mammography[place] [address] Ladi Mendosa MD [facility] HEMATOLOGY [place] [address] 01/30/2024 11:30 AM EST Office Visit Dermatology at [facility] [address] [place] [address] Nilda Luis MD [facility] [place] [address] 02/14/2024 7:30 AM EST [place] [address] Joanna Watts MD [facility] [place] [address] documented as of this encounter Procedures Procedure [...] lower pole parathyroid adenoma. Valentina Lucas MD [facility] [place] ORDERABLES documented in this encounter Visit Diagnoses Not on filedocumented in this encounter Care Teams Land Inspector Relationship Specialty Start Date End Date Trinh Coates MD [facility] [address] [place] [address] PCP - General 01/11/10 documented as of this encounter
--- OUTSIDE RECORDS SUMMARY | 2023-09-25 11:53 | XMS_ITS | Encounter Summary ---
Author Organization Counts Include [facility] Address [facility] [place] [address] Care Team Providers Care Plywood Stock Grader Name Role Phone Trinh Coates MD Primary Care Provider [phone] Encounter Details Date Type Department Care Team (Late st Contact Info) Description 11/11/2012 Orders [place] [address] Mary Sanchez MD [facility] DIAGNOST[place] [address] Abnormal mammogram (Primary Dx) Social History Tobacco [...] 01/22/2024 10:30 AM EST Appointment Mammography/[place] [address] Ladi Mendosa MD [facility] HEMATOLOGY [place] [address] 01/30/2024 11:30 AM EST Office Visit Dermatology at [facility] [address] [place] [phone] Nilda Luis MD [facility] [address] 02/14/2024 7:30 AM EST Appointment Radiology at [facility] [place] [address] Joanna Watts MD [facility] [place] [address] documented as of this encounter Results * [...] unspecified documented in this encounter Care Teams Plywood Stock Grader Relationship Specialty Start Date End Date Trinh Coates MD [address] [place] [address] PCP - General 01/11/10 documented as of this encounter
--- OUTSIDE RECORDS SUMMARY | 2023-09-25 11:53 | XMS_ITS | Encounter Summary ---
Author Organization [facility] Address [facility] [place] [address] Care Team Providers Care Copy Center Operator Name Role Phone Trinh Coates MD Primary Care Provider [phone] Reason for Visit * Reason Onset Date Comments Medication Refill 04/16/2014 Encounter Details Date Type Department Care Team (Late st Contact Info) Description 04/16/2014 Refill Dermatology at [facility] [address] [place] [address] Ernestine Gaines MD [facility] [address] [place] [address] Psoriasis Social History Tobacco Use Types Packs/Day Years Used Date Smoking Tobacco: Former Sex and Gender Information Value Date Recorded Sex Assigned at Not on file Gender Identity Not on file Sexual Orientation Not on file documented as of this encounter Plan of Treatment Upcoming Encounters Date Type Department Care Team (Late st Contact Info) Description 01/22/2024 10:30 AM EST Appointment Mammography/[place] [phone] Ladi Mendosa MD [facility] HEMATOLOGY [place] [address] 01/30/2024 11:30 AM EST Office Visit Dermatology at [facility] [address] [place] [address] Nilda Luis MD [facility] [place] [address] 02/14/2024 7:30 AM EST [place] [address] Joanna Watts MD [facility] [place] [address] documented as of this encounter Visit Diagnoses Diagnosis Psoriasis Other psoriasis documented in this encounter Care Teams Copy Center Operator Relationship Specialty Start Date End Date Trinh Coates MD [facility] [address] [place] [address] PCP - General 01/11/10 documented as of this encounter
--- OUTSIDE RECORDS SUMMARY | 2023-09-25 11:53 | XMS_ITS | Encounter Summary ---
Author Organization [facility] [place] [address] Care Team Providers Care Batter Scaler Name Role Phone Trinh Coates MD Primary Care Provider [phone] Encounter Details Date Type Department Care Team (Latest Contact Info) Description 12/04/2014 9:48 AM EDT - 12/04/2014 11:59 PM EDT Hospital Encounter [place] [address] Trinh Coates MD [address] [place] [address] [address] [place] [address] Screening breast examination Discharge Disposition: [...] einuria,Essential hypertension,Hypercalcem ia Take by mouth. 10/15/2015 clobetasol (TEMOVATE) 0.05 % CreamIndications:Psorias is Apply [...] 01/22/2024 10:30 AM EST Appointment Mammography/[place] [address] Ladi Mendosa MD [facility] [place] [address] 01/30/2024 11:30 AM EST Office Visit Dermatology at [place] [address] [place] [address] Nilda Luis MD [facility] [place] [address] 02/14/2024 7:30 AM EST Appointment Radiology at [place] [phone] Joanna Watts MD [facility] [place] [address] documented as of this encounter Procedures Procedure [...] examination documented in this encounter Care Teams Batter Scaler Relationship Specialty Start Date End Date Trinh Coates MD [facility] [address] [place] [address] PCP - General 01/11/10 documented as of this encounter
--- OUTSIDE RECORDS SUMMARY | 2023-09-25 11:53 | XMS_ITS | Encounter Summary ---
Author Organization [facility] Address [facility] [place] [address] Care Team Providers Care Adhesive Primer Name Role Phone Trinh Coates MD Primary Care Provider [phone] Reason for Visit * Reason Onset Date Comments Medication Refill 03/30/2014 Encounter Details Date Type Department Care Team (Late st Contact Info) Description 03/30/2014 Refill Dermatology at [facility] [address] [place] [phone] Ernestine Gaines MD [facility] [address] [place] [address] Psoriasis Social History Tobacco Use Types Packs/Day [...] AM EST Appointment Mammography/[place] [phone] Ladi Mendosa MD [facility] [place] [address] 01/30/2024 11:30 AM EST Office Visit Dermatology at [facility] [address] [place] [address] Nilda Luis MD [facility] [place] [address] 02/14/2024 7:30 AM EST Appoint[place] [phone] Joanna Watts MD [facility] [place] [address] documented as of this encounter Visit Diagnoses Diagnosis Psoriasis Other psoriasis documented in this encounter Care Teams Adhesive Primer Relationship Specialty Start Date End Date Trinh Coates MD [employer] [address] [place] [address] PCP - General 01/11/10 documented as of this encounter
--- OUTSIDE RECORDS SUMMARY | 2023-09-25 11:53 | XMS_ITS | Encounter Summary ---
Author Organization [facility] Address [facility] [place] [address] Care Team Providers Care Military Source Operations Officer Name Role Phone Trinh Coates MD Primary Care Provider [phone] Encounter Details Date Type Department Care Team (Late st Contact Info) Description 09/30/2013 Orders Only Dermatology at [facility] [address] [place] [phone] Colette Lara MD [facility] [address] [place] [address] Social History Tobacco Use Types Packs/Day Years [...] 01/22/2024 10:30 AM EST Appointment Mammography/[place] [address] Ladi Mendosa MD [facility] HEMATOLOGY [place] [address] 01/30/2024 11:30 AM EST Office Visit Dermatology at [facility] [address] [place] [address] Nilda Luis MD [facility] [place] [address] 02/14/2024 7:30 AM EST Appointment Radiology at [facility] [address] Joanna Watts MD [facility] [place] [address] documented as of this encounter Visit Diagnoses Not on filedocumented in this encounter Care Teams Military Source Operations Officer Relationship Specialty Start Date End Date Trinh Coates MD [facility] [address] [place] [address] PCP - General 01/11/10 documented as of this encounter
--- OUTSIDE RECORDS SUMMARY | 2023-09-25 11:53 | XMS_ITS | Encounter Summary ---
Author Organization Formerly [facility] [address] Care Team Providers Care Bean Picker Machine Operator Name Role Phone Trinh Coates MD Primary Care Provider [phone] Reason for Referral * Diagnostic Test (Routine) - Closed Specialty Diagnoses / Procedures Referred By Contac t Referred To Contact Radiology Diagnoses Hyperparathyroidism, primary Procedures NM Parathyroid w/Spect & Thyroid Imaging Valentina Lucas MD [facility] [address] [place] [address] Referral ID Status Reason Start Date Expiration Date V isits Requested Visits Authorized [id number] Closed Specialty Service Requested 09/25/2015 09/24/2016 3 3 Reason for Visit * Diagnostic Test (Routine) - Closed Specialty Diagnoses / Procedures Referred By Contac t Referred To Contact Radiology Diagnoses Hyperparathyroidism, primary Procedures NM Parathyroid w/Spect & Thyroid Imaging Valentina Lucas MD [facility] [place] [address] [place] [address] Referral ID Status Reason Start Date Expiration Date V isits Requested Visits Authorized [id number] Closed Specialty Service Requested 09/25/2015 09/24/2016 3 3 Encounter Details Date Type Department Care Team (Latest Contact Info) Description 10/15/2015 10:47 AM EDT Hospital Encounter [place] [address] Valentina Lucas MD [facility] [place] [address] Hyperparathyroidism , primary Discharge Disposition: Home Social [...] AM EST Appointment Mammography/[place] [phone] Ladi Mendosa MD [facility] DR [place] [address] 01/30/2024 11:30 AM EST Office Visit Dermatology at [address] [phone] Nilda Luis MD [facility] [place] [address] 02/14/2024 7:30 AM [place] [address] Joanna Watts MD [facility] [place] [address] documented as of this encounter Procedures Procedure [...] Arm documented in this encounter Care Teams Bean Picker Machine Operator Relationship Specialty Start Date End Date Trinh Coates MD [address] [facility] [facility] [address] [place] [address] PCP - General 01/11/10 documented as of this encounter
--- OUTSIDE RECORDS SUMMARY | 2023-09-25 11:53 | XMS_ITS | Encounter Summary ---
Author Organization [facility] [place] [address] Care Team Providers Care Emergency Planning And Response Manager Name Role Phone Trinh Coates MD Primary Care Provider Reason for Visit * Diagnostic Test (Routine) - Closed Specialty Diagnoses / Procedures Referred By Diamante marin Referred To Contact Radiology Diagnoses Hyperparathyroidism, primary Procedures NM Parathyroid w/Spect & Thyroid Imaging Valentina Lucas MD [facility] [place] [address] [place] [address] Referral ID Status Reason Start Date Expiration Date V isits Requested Visits Authorized [id number] Closed Specialty Service Requested 09/25/2015 09/24/2016 3 3 Encounter Details Date Type Department Care Team (Latest Contact Info) Description 10/15/2015 1:24 PM EDT - 10/15/2015 11:59 PM EDT Hospital Encounter [place] [address] Valentina Lucas MD [facility] [place] [address] Discharge Disposition: Home Social History [...] 01/22/2024 10:30 AM EST Appointment Mammography/[place] [address] Ladi Mendosa MD [facility] HEMATOLOGY [place] [address] 01/30/2024 11:30 AM EST Office Visit Dermatology at [address] [phone] Nilda Luis MD [facility] [place] [address] 02/14/2024 7:30 AM EST [place] [address] Joanna Watts MD [facility] [place] [address] documented as of this encounter Procedures Procedure [...] mCi documented in this encounter Care Teams Emergency Planning And Response Manager Relationship Specialty Start Date End Date Trinh Coates MD [facility] [address] [place] [address] PCP - General 01/11/10 documented as of this encounter
--- OUTSIDE RECORDS SUMMARY | 2023-09-25 11:53 | XMS_ITS | Encounter Summary ---
Author Organization [facility] Address [facility] [place] [address] Care Team Providers Care World Language Teacher Name Role Phone Trinh Coates MD Primary Care Provider [phone] Reason for Visit * Reason Comments Procedure Encounter Details Date Type Department Care Team (Latest Contact Info) Description 10/10/2013 9:30 AM EDT Procedure visit Dermatology at [facility] [address] [place] [address] Colette Hudson MD [facility] [address] [place] [address] Atypical nevus (Primary Dx) Discharge Disposition: Home [...] the hospital number and ask for the Hopper Filler transmission repairer. Doctor Colette Hudson MD Nurse JIMBO DE LA ROSA LPN documented in this encounter Progress Notes * Eliseo Sorensen III, MD - 10/10/2013 5:48 PM EDT I was the supervising physician working with dermatology resident Dr. Hudson in the dermatology clinic during this patient visit. The level of Resident supervision for this patient visit was indirect supervision with direct supervision immediately available. (definition: [facility] GME Policy Statement on Graduate Medical Education, [...] HUDSON MD Attending Physician: Eliseo Sorensen MD Law Enforcement Officer: Jimbo De La Rosa LPN Ms. Sandoval [...] with questions/concerns. RTC as scheduled with Primary Hopper Filler, Dr. Gaines. COLETTE HUDSON MD Resident in Dermatology Patient discussed with Supervising Hopper Filler: Eliseo Sorensen MD Section of Dermatology [facility] Level of Resident Supervision: Indirect supervision with direct supervision immediately available (the supervising physician is physically within the confines of the site of patient care, and is immediately available to provide Direct Supervision) documented in this encounter Plan of Treatment Upcoming Encounters Date Type Department Care Team (Late st Contact Info) Description 01/22/2024 10:30 AM EST Appointment Mammography/[place] [address] Ladi Mendosa MD [facility] HEMATOLOGY [place] [address] 01/30/2024 11:30 AM EST Office Visit Dermatology at [facility] [address] [place] [address] Nilda Luis MD [facility] [place] [address] 02/14/2024 7:30 AM EST Appointment Radiology at [facility] [place] [phone] Joanna Watts MD [facility] [place] [place] [address] documented as of this encounter Procedures Procedure Name Priority Date/Time Associated Diagnosis Comments SPECIMEN TO PATHOLOGY (NON-OR) Routine 10/10/2013 11:29 AM EDT Atypical nevus SURGICAL PATHOLOGY REPORT Routine 10/10/2013 11:29 AM EDT documented in this encounter Results * Surgical Pathology Report (10/10/2013 11:29 AM EDT) Final Diagnosis ? [facility] ? Provider: ?? COLETTE HUDSON ? Pt. Name: ?? WENDY SANDOVAL ? Acc #: ?[id number] ? Pt. ? Col Date: ?? 10/10/2013 [...] scar pigmented at superior edge. ??See previous [id number]. ? Clinical Diagnosis: ? Atypical nevus 10/13/2013 2:01 PM EDT [facility] SPECIMEN FROM SKIN / Unknown 10/10/2013 11:29 AM EDT 10/10/2013 11:29 AM EDT Colette Hudson MD PATHOLOGY/CYTOLOGY O RDERABLES [facility] [place] [address] * Specimen to Pathology (NON-OR) (10/10/2013 11:29 AM EDT) AP Specimen 10/10/2013 11:2 9 AM EDT 10/10/2013 11:29 AM EDT Narrative [facility] - 10/10/2013 11:29 AM EDT Specimen requisition ordered. ??Separate Pathology report to follow Eliseo Sorensen III, MD PATHOLOGY/CYTOL OGY ORDERABLES Performing Organization Address City/State/[facility] Co ma Phone Number [facility] documented in this encounter Visit Diagnoses Diagnosis Atypical nevus- Primary Benign neoplasm of skin, site unspecified documented in this encounter Care Teams World Language Teacher Relationship Specialty Start Date End Date Trinh Coates MD [facility] [address] [facility] [address] [place] [address] PCP - General 01/11/10 documented as of this encounter
--- OUTSIDE RECORDS SUMMARY | 2023-09-25 11:53 | XMS_ITS | Encounter Summary ---
Author Organization [facility] [place] [address] Care Team Providers Care Occ Therapist Name Role Phone Trinh Coates MD Primary Care Provider [phone] Reason for Visit * Auth/Cert Specialty Diagnoses / Procedures Referred By Diamante marin Referred To Contact Diagnoses Hyperparathyroidism HYPERPARATHYROIDISM Procedures PRO EXPLORE PARATHYROID GLANDS PRG EMG, LARYNX PARATHYROIDECTOMY OR EXPLORATION OF PARATHYROID(S) FACIAL NERVE MONITORING, SETUP LARYNGEAL Referral ID Status Reason Start Date Expiration Date Visits Re quested Visits Authorized [id number] 1 1 Encounter Details Date Type Department Care Team (Latest Contact Info) Description 11/02/2015 6:03 AM EDT - 11/03/2015 4:00 PM EDT Hospital Encounter [address] [place] [address] Sherine Fontana MD [facility] [place] [place] [address] Essential hypertension, hypertension with unspecified goal Discharge [...] vitals do to patient feeling weak, and rsoalio Respiratory Rate 18 11/03/2015 10:2 0 AM [...] priorto surgery. 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 [...] AM NADJA, JOSSY L Lab 3L LAD[facility] VANESSADANN 12/09/2015 11:00 AM Sherine Fontana MD [facility] Outpatient Services/Studies: Calcium Standing Status: Future [...] Take NSAIDS or Tylenol every 6 hours brqoeg-pjf-ilbbx for the first 3-5 days following surgery [...] or grocery store, as it is available [id number] and does not require a prescription. The [...] please call the General Surgery nurse at [phone], since this may mean that you need [...] will be mailed to you Please call [phone] to confirm the date and time of [...] with the Surgery nurses. The number is [phone]. - During the night or weekends call the [facility] gravure press set up operator at [phone] and ask to speak to the surgery resident cash applications coordinator for general surgery. Please note: Your surgeon may not be Manager Reporting, especially during the night or on weekends, so be ready to describe yourself and your surgery when you call. Follow up appointments: Future Appointments Date Time Provider Department Center 12/09/2015:00 AM NADJA, JOSSY L Lab 3L LAD[facility] HENDRIX 12/09/2015 11:00 AM Sherine Fontana MD [facility] [x] Follow-up appointment with General Surgery has already been scheduled [] A request for a follow-up appointment has been made and you should receive information via phone/mail in the next week. If you do not hear anything, please call the clinic at [phone] to confirm or reschedule. If you need a prior authorization, please call the General Surgery Clinic nurses [phone] for prior authorizations assistance General Instructions None [...] Saenz APRN Surgical Oncology Service Team Pager #[phone] 11/03/2015 2:46 PM documented in this encounter [...] Take NSAIDS or Tylenol every 6 hours bypxtm-tol-gtzrq for the first 3-5 days following surgery [...] or grocery store, as it is available lemp-pol-pmvkhps and does not require a prescription. The [...] please call the General Surgery nurse at [phone], since this may mean that you need [...] will be mailed to you Please call [phone] to confirm the date and time of [...] with the Surgery nurses. The number is [phone]. - During the night or weekends call the [facility] gravure press set up operator at [phone] and ask to speak to the surgery resident cash applications coordinator for general surgery. Please note: Your surgeon may not be Manager Reporting, especially during the night or on weekends, so be ready to describe yourself and your surgery when you call. Follow up appointments: Future Appointments Date Time Provider Department Center 12/09/2015 10:00 AM LAB, THREE L Lab 3L LAD[facility] VANESSATN 12/09/2015 11:00 AM Sherine Fontana MD [facility] [x] Follow-up appointment with General Surgery has already been scheduled [] A request for a follow-up appointment has been made and you should receive information via phone/mail in the next week. If you do not hear anything, please call the clinic at [phone] to confirm or reschedule. If you need a prior authorization, please call the General Surgery Clinic nurses [phone] for prior authorizations assistance documented in this [...] this time, but in agreement to accepting [place] advanced planning booklet and reviewing at home. 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 limitations Home Environment: [...] Coverage: MVP Preferred Pharmacy: [facility] Other: Also uses [facility], but prefers [facility] for any new scripts related to this discharge Primary Care Provider: TRINH COATES MD [phone] Patient/Caregiver Goals of Treatment: Home without services [...] MIRIAM RANDALL RN Pager: covering for pager [phone] * Tawana Arrieta RN - 11/02/2015 4:19 [...] call [place] within reach, Hourly rounding by RN/WIRELESS MANAGER. Close to nurse's station. Bed alarm / [...] progress toward outcome * Op Note - Sheirne Fontana MD - 11/02/2015 12:19 PM EDT [facility] Operative Note Patient Name: Wedny Sandoval : [id number] MR#: [id number] Case Date: 11/02/2015 Surgeon: Surgeon(s) and Role: [...] anesthesia was completed by anesthesiology with the [employer] recurrent laryngeal nerve monitoring system. A crease [...] 01/22/2024 10:30 AM EST Appointment Mammography/[place] [phone] Ladi Mendosa MD [facility] [place] [address] 01/30/2024 11:30 AM EST Office Visit Dermatology at [facility] [address] [place] [address] Nilda Luis MD [facility] [place] [address] 02/14/2024 7:30 AM [place] [phone] Joanna Watts MD [facility] [place] [address] documented as of this encounter Procedures Procedure Name Priority Date/Time Associated Diagnosis Comments ECG SCAN 11/04/2015 12:00 AM EDT PTH Routine 11/03/2015 7:36 AM EDT CALCIUM Routine 11/03/2015 7:36 AM EDT CARDIAC ENZYMES ([facility]) Routine 11/02/2015 2:00 PM EDT EKG 12-LEAD STAT 11/02/2015 1:47 PM EDT Essential hypertension, hypertension with unspecified goal SPECIMEN TO PATHOLOGY Routine 11/02/2015 12:24 PM EDT SPECIMEN TO PATHOLOGY STAT 11/02/2015 11:59 AM EDT INTRAOPERATIVE PTH ([facility]) STAT 11/02/2015 11:46 AM EDT SPECIMEN TO PATHOLOGY STAT 11/02/2015 11:42 AM EDT SPECIMEN TO PATHOLOGY STAT 11/02/2015 11:13 AM EDT SPECIMEN TO PATHOLOGY STAT 11/02/2015 11:00 AM EDT SPECIMEN TO PATHOLOGY STAT 11/02/2015 10:45 AM EDT INTRAOPERATIVE PTH ([facility] STAT 11/02/2015 9:50 AM EDT INTRAOPERATIVE PTH ([facility] STAT 11/02/2015 9:45 AM EDT SPECIMEN TO PATHOLOGY Routine 11/02/2015 9:38 AM EDT INTRAOPERATIVE PTH ([facility]) STAT 11/02/2015 9:35 AM EDT SPECIMEN TO PATHOLOGY Routine 11/02/2015 9:21 AM EDT SPECIMEN TO PATHOLOGY STAT 11/02/2015 9:17 AM EDT SURGICAL PATHOLOGY REPORT Routine 11/02/2015 9:16 AM EDT INTRAOPERATIVE PTH ([facility] STAT 11/02/2015 9:12 AM EDT INTRAOPERATIVE PTH ([facility] STAT 11/02/2015 8:59 AM EDT THYMECTOMY, TRANSCERVICAL APPROACH (WRVU 17.16) 11/02/2015 7:39 AM EDT HYPERPARATHYROIDISM FACIAL NERVE MONITORING, SETUP LARYNGEAL (WRVU 1.57) 11/02/2015 7:39 AM EDT HYPERPARATHYROIDISM PARATHYROIDECTOMY OR EXPLORATION OF PARATHYROID(S) (WRVU 15.6) 11/02/2015 7:39 AM EDT HYPERPARATHYROIDISM documented in this encounter Results * Calcium (12/09/2015 10:20 AM EDT) Calcium 9.3 8.5 - 10.5 mg/dL [facility] Blood specimen (specimen) 12/09/2015 10:20 AM EDT 12/09/2015 10:25 AM EDT Narrative Resulting Agency Comment Spec In Lab Sherine Fontana MD CHEMISTRY ORDERAB LES Performing Organization Address [facility]/ZIP Co de Phone Number [facility] [place] [place] [address] * SCAN DOC: ECG (11/04/2015 12:00 AM EDT) Scanning Provider MEDIA MGR SCAN EXT O RDR/RSLT * Calcium (11/03/2015 7:36 AM EDT) Calcium 9.4 8.5 - 10.5 mg/dL [facility] Blood specimen (specimen) 11/03/2015 7:36 AM EDT 11/03/2015 7:44 AM EDT Narrative Resulting Agency Comment Spec In Lab Sherine Fontana MD CHEMISTRY ORDERAB LES Performing Organization Address City/[facility]/ZIP Co de Phone Number [facility] [place] [address] * (ABNORMAL) PTH (11/03/2015 7:36 AM EDT) Parathyroid Hormone 7(L) 15 - 65 pg/mL [facility] Blood specimen (specimen) 11/03/2015 7:36 AM EDT 11/03/2015 7:44 AM EDT Narrative Resulting Agency Comment Spec In Lab Sherine Fontana MD CHEMISTRY ORDERAB LES Performing Organization Address [facility] Co de Phone Number [facility] [place] [address] * Cardiac Enzymes (11/02/2015 2:00 PM EDT) [facility] Troponin-T <0.03 <=0.03 ng/mL [facility] Comment: 0.03 ng/mL: Represents the 99th percentile upper reference limit for normals. >0.03 ng/mL: Elevated cardiac troponin T level indicative of myocardial damage. Diagnosis of acute, evolving or recent RI requires a typical rise and gradual fall [...] consensus document of the Joint Society of Cardiology/[place] College of Cardiology Committee for the redefinition of myocardial infarction. ??Journal of the [place] College of Cardiology 2000; 36: 959-969] Creatine Kinase 130 0 - 160 unit/L [facility] Blood specimen (specimen) 11/02/2015 2:00 PM EDT 11/02/2015 2:02 PM EDT Narrative Resulting Agency Comment Spec In Lab Sherine Fontana MD CHEMISTRY ORDERAB LES Performing Organization Address [facility] Co de Phone Number [facility] [place] [place] [address] * EKG 12 Lead (11/02/2015 1:47 PM EDT) [facility] Ventricular rate 110 BPM MUSE SYSTEM Atrial Rate 110 BPM MUSE SYSTEM P-R Interval 96 ms MUSE SYSTEM QRS Duration 82 ms MUSE SYSTEM Q-T Interval 488 ms MUSE SYSTEM QTC Calculated (Bezet) 660 ms MUSE SYSTEM Calculated R [place] -22 degrees MUSE SYSTEM Calculated T [place] 44 degrees MUSE SYSTEM INTERPRETATION Sinus tachycardia with short CO Nonspecific ST and T wave abnormality Abnormal ECG No previous ECGs available Confirmed by MD Alex, Denny ([id number]) on 11/02/2015 4:12:47 PM MUSE SYSTEM 11/02/2015 1:47 PM EDT 11/02/2015 4:12 PM EDT Maximilian Alberto MD ECG ORDERABLES Performing Organization Address [facility] de Phone Number MUSE SYSTEM * Specimen to Pathology (surgical or derm) (11/02/2015 12:24 PM EDT) AP Specimen 11/02/2015 12:2 4 PM EDT 11/02/2015 12:24 PM EDT Narrative [facility] - 11/02/2015 12:24 PM EDT Specimen requisition ordered. ??Separate Pathology report to follow Sherine Fontana MD PATHOLOGY/CYTOLOG Y ORDERABLES Performing Organization Address [facility] Co de Phone Number [facility] [place] [address] * Specimen to Pathology (surgical or derm) (11/02/2015 11:59 AM EDT) AP Specimen 11/02/2015 11:5 9 AM EDT 11/02/2015 11:59 AM EDT Narrative [facility] - 11/02/2015 11:59 AM EDT Specimen requisition ordered. ??Separate Pathology report to follow Sherine Fontana MD PATHOLOGY/CYTOLOG Y ORDERABLES Performing Organization Address [facility] Co de Phone Number [facility] [place] [address] * (ABNORMAL) Intraoperative PTH (11/02/2015 11:46 AM EDT) PTH, Intraoperative 14(L) 15 - 65 pg/mL [facility] Comment: Called by: harry, Read back by: kevin barbosa, Date/Time:11/02/15 12:34. A 50 % decrease in venous iPTH levels at 10 min post adenoma excision is expected if all the hypersecreting parathyroid tissue has been removed (David GL et al. Surgery 1993:114; 8463-7808) Blood specimen (specimen) 11/02/2015 11:46 AM EDT 11/02/2015 11:52 AM EDT Narrative Resulting Agency Comment Spec In Lab Sherine Fontana MD CHEMISTRY ORDERAB LES Performing Organization Address [facility] Co de Phone Number [facility] [place] [address] * Specimen to Pathology (surgical or derm) (11/02/2015 11:42 AM EDT) AP Specimen 11/02/2015 11:4 2 AM EDT 11/02/2015 11:42 AM EDT Narrative [facility] - 11/02/2015 11:42 AM EDT Specimen requisition ordered. ??Separate Pathology report to follow Sherine Fontana MD PATHOLOGY/CYTOLOG Y ORDERABLES Performing Organization Address [facility] [place] [address] * Specimen to Pathology (surgical or derm) (11/02/2015 11:13 AM EDT) AP Specimen 11/02/2015 11:1 3 AM EDT 11/02/2015 11:13 AM EDT Narrative [facility] - 11/02/2015 11:13 AM EDT Specimen requisition ordered. ??Separate Pathology report to follow Sherine Fontana MD PATHOLOGY/CYTOLOG Y ORDERABLES Performing Organization Address [facility] [place] [address] * Specimen to Pathology (surgical or derm) (11/02/2015 11:00 AM EDT) AP Specimen 11/02/2015 11:0 0 AM EDT 11/02/2015 11:00 AM EDT Narrative [facility] - 11/02/2015 11:00 AM EDT Specimen requisition ordered. ??Separate Pathology report to follow Sherine Fontana MD PATHOLOGY/CYTOLOG Y ORDERABLES Performing Organization Address City/[facility]/ZIP Co de Phone Number [facility] [place] [address] * Specimen to Pathology (surgical or derm) (11/02/2015 10:45 AM EDT) AP Specimen 11/02/2015 10:4 5 AM EDT 11/02/2015 10:45 AM EDT Narrative [facility] - 11/02/2015 10:45 AM EDT Specimen requisition ordered. ??Separate Pathology report to follow Sherine Fonatna MD PATHOLOGY/CYTOLOG Y ORDERABLES Performing Organization Address [facility] [place] [address] * (ABNORMAL) Intraoperative PTH (11/02/2015 9:50 AM EDT) PTH, Intraoperative 66(H) 15 - 65 pg/mL [facility] Comment: Called by: RENETTA, Read back by: Kevin, Date/Time:11/02/15 10:24 15-min post excision. A 50 % decrease in venous iPTH levels at 10 min post adenoma excision is expected if all the hypersecreting parathyroid tissue has been removed (David GL et al. Surgery 1993:114; 2671-2171) Blood specimen (specimen) 11/02/2015 9:50 AM EDT 11/02/2015 9:55 AM EDT Narrative Resulting Agency Comment Spec In Lab Sherine Fontana MD CHEMISTRY ORDERAB LES Performing Organization Address [facility]/ZIP Co de Phone Number [facility] [place] [address] * (ABNORMAL) Intraoperative PTH (11/02/2015 9:45 AM EDT) PTH, Intraoperative 79(H) 15 - 65 pg/mL [facility] Comment: Called by: RENETTA, Read back by: Edith, Date/Time:11/02/15 10:18 *10-min post-excision. A 50 % decrease in venous iPTH levels at 10 min post adenoma excision is expected if all the hypersecreting parathyroid tissue has been removed (David BHAT et al. Surgery 1993:114; 3502-0360) Blood specimen (specimen) 11/02/2015 9:45 AM EDT 11/02/2015 9:49 AM EDT Narrative Resulting Agency Comment Spec In Lab Sherine Fontana MD CHEMISTRY ORDERAB LES Performing Organization Address [facility]/ZIP Co de Phone Number [facility] [place] [address] * Specimen to Pathology (surgical or derm) (11/02/2015 9:38 AM EDT) AP Specimen 11/02/2015 9:38 AM EDT 11/02/2015 9:38 AM EDT Narrative [facility] - 11/02/2015 9:38 AM EDT Specimen requisition ordered. ??Separate Pathology report to follow Sherine Fontana MD PATHOLOGY/CYTOLOG Y ORDERABLES Performing Organization Address [facility] Co de Phone Number [facility] [place] [place] [address] * (ABNORMAL) Intraoperative PTH (11/02/2015 9:35 AM EDT) PTH, Intraoperative 255(H) 15 - 65 pg/mL [facility] Comment: Called by: RENETTA, Read back by: Edith, Date/Time:11/02/15 10:10. *repeat pre-excision A 50 % decrease in venous iPTH levels at 10 min post adenoma excision is expected if all the hypersecreting parathyroid tissue has been removed (David BHAT et al. Surgery 1993:114; 9411-1322) Blood specimen (specimen) 11/02/2015 9:35 AM EDT 11/02/2015 9:39 AM EDT Narrative Resulting Agency Comment Spec In Lab Sherine Fontana MD CHEMISTRY ORDERAB LES Performing Organization Address [facility] Co de Phone Number [facility] [place] [address] * Specimen to Pathology (surgical or derm) (11/02/2015 9:21 AM EDT) AP Specimen 11/02/2015 9:21 AM EDT 11/02/2015 9:21 AM EDT Narrative [facility] - 11/02/2015 9:21 AM EDT Specimen requisition ordered. ??Separate Pathology report to follow Sherine Fontana MD PATHOLOGY/CYTOLOG Y ORDERABLES Performing Organization Address [facility] Co de Phone Number [facility] [place] [place] [address] * Specimen to Pathology (surgical or derm) (11/02/2015 9:17 AM EDT) AP Specimen 11/02/2015 9:17 AM EDT 11/02/2015 9:17 AM EDT Narrative [facility] - 11/02/2015 9:17 AM EDT Specimen requisition ordered. ??Separate Pathology report to follow Sherine Fontana MD PATHOLOGY/CYTOLOG Y ORDERABLES Performing Organization Address [facility] Co de Phone Number [facility] [place] [address] * Surgical Pathology Report (11/02/2015 9:16 AM EDT) Final Diagnosis [id number] ? [facility]; B The signing pathologist has [...] 0.1 cm, weighing 0.01 grams. Tissue Description: [place] tissue, frozen section remnant. Sections/Processi ng: Specimen [...] 0.1 cm, weighing 0.04 grams. Tissue Description: [place] tissue fragment, frozen section remnants. Sections/Processi ng: [...] differentially inked; (4)one intact node.(R4) ??rm _ 11/12/2015 2:20 PM EDT [facility] LYMPH NODE SPECIMEN / Unknown 11/02/2015 9:16 AM EDT 11/02/2015 9:16 AM EDT LYMPH NODE SPECIMEN / Unknown 11/02/2015 9:16 AM EDT 11/02/2015 9:16 AM EDT THYROID STRUCTURE / Unknown 11/02/2015 9:16 AM EDT 11/02/2015 9:16 AM EDT Frozen Specimen 11/02/2015 9 :16 AM EDT 11/02/2015 9:16 AM EDT Frozen Specimen 11/02/2015 9 :16 AM EDT 11/02/2015 9:16 AM EDT Frozen Specimen 11/02/2015 9 :16 AM EDT 11/02/2015 9:16 AM EDT BIOPSY SPECIMEN / Unknown 11/02/2015 9:16 AM EDT 11/02/2015 9:16 AM EDT Frozen Specimen 11/02/2015 9 :16 AM EDT 11/02/2015 9:16 AM EDT LYMPH NODE SPECIMEN / Unknown 11/02/2015 9:16 AM EDT 11/02/2015 9:16 AM EDT Sherine Fontana MD PATHOLOGY/CYTOLOG Y ORDERABLES [facility] [place] [address] * (ABNORMAL) Intraoperative PTH (11/02/2015 9:12 AM EDT) PTH, Intraoperative 380(H) 15 - 65 pg/mL [facility] Comment: Called by: RENETTA, Read back by: Kevin Bocanegra, Date/Time:11/02/15 09:47. Pre-Excision #1 A 50 % decrease in venous iPTH levels at 10 min post adenoma excision is expected if all the hypersecreting parathyroid tissue has been removed (David GL et al. Surgery 1993:114; 7766-1141) Corrected from 380 pg/mL [HI] on 11/02/15 09:56 by Tahira Munguia Blood specimen (specimen) 11/02/2015 9:12 AM EDT 11/02/2015 9:16 AM EDT Narrative Resulting Agency Comment Spec In Lab Sherine Fontana MD CHEMISTRY ORDERAB LES Performing Organization Address City/[facility]/ZIP Co de Phone Number [facility] [place] [phone] * (ABNORMAL) Intraoperative PTH (11/02/2015 8:59 AM EDT) PTH, Intraoperative 284(H) 15 - 65 pg/mL [facility] Comment: Called by: RENETTA, Read back by: Kevin Webb, Date/Time:11/02/15 09:32. *Baseline A 50 % decrease in venous iPTH levels at 10 min post adenoma excision is expected if all the hypersecreting parathyroid tissue has been removed (David GL et al. Surgery 1993:114; 4505-4170) Blood specimen (specimen) 11/02/2015 8:59 AM EDT 11/02/2015 9:02 AM EDT Narrative Resulting Agency Comment Spec In Lab Sherine Fontana MD CHEMISTRY ORDERAB LES [facility] [place] [place] [address] documented in this encounter Visit Diagnoses Diagnosis [...] Colon RN) 0844 (Given - Provider: Mariel Dill, JENNYFER)1500 (Given - Provider: Mariel Dill, JENNYFER) calcium carbonate (TUMS) chewable tablet 1,000 mg (COMPLETED) 1,000 mg, Oral, ONCE, 1 dose, On Sun11/03/15 at 1130, Routine 1308 (Given - Provid er: Mariel Dill RN) cholecalciferol (Vitamin D3) tablet 800 Units 800 Units, Oral, 3 TIMES DAILY, First dose on Sun11/02/15 at 2100, Until Discontinued, Routine 2220 (Given - Provider: Becki Colon RN) 0845 (Given - Provider: Mariel Dill, JENNYFER)1459 (Given - Provider: Mariel Dill, JENNYFER) DILTiazem (DILTIAZEM CD) ER capsule 240 mg 240 mg, Oral, DAILY, First dose on Sun11/02/15 at 1730, Until Discontinued, DO NOT CRUSH OR OPEN, Routine 2220 (Given - Provider: Becki Colon, RN) 0900 (Not Given - Provider: Mariel [...] Colon, JENNYFER) 0844 (Given - Provider: Mariel Dill RN) simvastatin (ZOCOR) tablet 10 mg 10 mg, Oral, DAILY WITH DINNER, First dose on Sun11/02/15 at 1700, Until Discontinued 2220 (Given - Provider: Becki Colno, RN) valsartan (DIOVAN) tablet 160 mg 160 [...] Routine 1435 (Given - Provider: Lio Le, JENNYFER)1751 (Given - Provider: Tawana Arrieta, JENNYFER)2219 (Given - Provider: Becki Colon RN) 0355 (Given - Provider: Mariposa Wynne, JENNYFER)1311 (Given - Provider: Mariel Dill, JENNYFER) BUpivacaine-EPINEPHrine 0.25 %-1:200,000 injection (CANCELED) ONCE PRN, [...] HR <60 1424 (Given - Provider: Lio Le RN) 0048 (Given - Provider: Becki Colon RN) ondansetron (ZOFRAN) injection 4 mg(Linked Group [...] Routine 1053 (Given - Provid er: Mariel Dlil RN) oxyCODONE (ROXICODONE) immediate release tablet 5 mg 5 mg, Oral, EVERY 4 HOURS PRN, Starting on Sun11/02/15 at 1425, Until Sun11/03/15 at 1825, Pain, May repeat once in 30 minutes if ineffective., Routine 1434 (Given - Provider: Lio Le, RN)1751 (Given - Provider: Tawana Arrieta, JENNYFER)2220 (Given - Provider: Becki Colon, RN) 0552 [...] first. documented in this encounter Care Teams Occ Therapist Relationship Specialty Start Date End Date Trinh Coates MD [address] [place] [address] PCP - General 01/11/10 documented as of this encounter
--- OUTSIDE RECORDS SUMMARY | 2023-09-25 11:53 | XMS_ITS | Encounter Summary ---
Author Organization [facility] Address [facility] [place] [address] Care Team Providers Care Shafting Cleaner Name Role Phone Trinh Coates MD Primary Care Provider [phone] Reason for Visit * Auth/Cert Specialty Diagnoses / Procedures Referred By Diamante marin Referred To Contact Diagnoses Hyperparathyroidism HYPERPARATHYROIDISM Procedures PRO EXPLORE PARATHYROID GLANDS PRG EMG, LARYNX PARATHYROIDECTOMY OR EXPLORATION OF PARATHYROID(S) FACIAL NERVE MONITORING, SETUP LARYNGEAL Referral ID Status Reason Start Date Expiration Date Visits Re quested Visits Authorized [id number] 1 1 Encounter Details Date Type Department Care Team (Late st Contact Info) Description 11/02/2015 7:36 AM EDT Anesthesia [place] [address] Maximilian Mccord MD [facility] [place] [address] Franky Naranjo MD [facility] [place] [address] Anesthesia Record Procedure Summary Procedure Name Responsible [...] 0735; metacarpal vein right (top of hand); [id number] catheter system; 20 gauge; Karlee Camacho RN; [...] Mccord MD - 11/02/2015 3:27 PM EDT [facility] Department of Anesthesiology Post-procedure Note Patient: Wendy Sandoval Procedure Summary Date Anesthesia Start Anesthesia Stop Room / Location 11/02/15 0736 1257 [facility] OR 22 / [facility] MAIN OR Procedure Diagnosis Surgeon Responsible Provider PARATHYROIDECTOMY OR EXPLORATION OF PARATHYROID(S) (N/A Neck); FACIAL NERVE MONITORING, SETUP LARYNGEAL (N/A Neck); THYMECTOMY, TRANSCERVICAL APPROACH (N/A Chest) (HYPERPARATHYROIDISM) Valentina Lucas MD [place], James R, MD All Anesthesia Providers: Anesthesiologist: Maximilian Mccord MD Publicity Writer: Scooby Betancourt MD; Franky Naranjo MD Last (1hr) Vitals: BP 159/83 (11/02/15 1500) Temp 36.6 ??C (97.9 ??F) (11/02/15 1500) Pulse 83 (11/02/15 1500) Resp 17 (11/02/15 1500) SpO2 93 % (11/02/15 1500) Patient Location: PACU/[facility] Level of Consciousness: Awake and Alert Pain [...] 01/22/2024 10:30 AM EST Appointment Mammography/[place] [address] Ladi Mendosa MD [facility] DR H[place]ATOLOG[place] [address] 01/30/2024 11:30 AM EST Office Visit Dermatology at [address] [place] [address] Nilda Luis MD [facility] [place] [address] 02/14/2024 7:30 AM EST [place] [phone] Joanna Watts MD [facility] [address] documented as of this encounter Visit Diagnoses [...] mg documented in this encounter Care Teams Shafting Cleaner Relationship Specialty Start Date End Date Trinh Coates MD [address] [place] [address] PCP - General 01/11/10 documented as of this encounter
--- OUTSIDE RECORDS SUMMARY | 2023-09-25 11:53 | XMS_ITS | Encounter Summary ---
Author Organization [facility] [place] [address] Care Team Providers Care Round Boner Name Role Phone Trinh Coates MD Primary Care Provider [phone] Encounter Details Date Type Department Care Team (Latest Contact Info) Description 12/05/2013 1:00 PM EDT - 12/05/2013 11:59 PM EDT Hospital Encounter [place] [address] CLINIC, Trinh Medina MD [facility] [address] [place] [address] Discharge Disposition: Home Social History [...] 10:30 AM EST Appointment Mammography/[place] [phone] Ladi Mendosa MD [facility] [place] [address] 01/30/2024 11:30 AM EST Office Visit Dermatology at [address] [phone] Nilda Luis MD [facility] [place] [address] 02/14/2024 7:30 AM EST App[place]ment [place] [address] Joanna Watts MD [facility] [place] [address] documented as of this encounter Procedures Procedure [...] been sent to this patient by the [facility] [place]. ?? Procedure Note Ira Emmanuel MD - [...] been sent to this patient by the [facility]. Trinh Coates MD IMG MAMMO ORDERABLES documented in this encounter Visit Diagnoses Not on filedocumented in this encounter Care Teams Round Boner Relationship Specialty Start Date End Date Trinh Coates MD [address] [place] [address] [address] [place] [address] PCP - General 01/11/10 documented as of this encounter
--- OUTSIDE RECORDS SUMMARY | 2023-09-25 11:53 | XMS_ITS | Encounter Summary ---
Author Organization [facility] [place] [address] Care Team Providers Care Molten Iron Pourer Name Role Phone Trinh Coates MD Primary Care Provider [phone] Encounter Details Date Type Department Care Team (Latest Contact Info) Description 11/07/2012 9:55 AM EDT - 11/07/2012 11:59 PM EDT Hospital [place] [address] CLINIC, Trinh Medina MD [facility] [address] [place] [address] Abnormal findings on diagnostic imaging [...] AM EST Appointment Mammography/[place] [phone] Ladi Mendosa MD [facility] [place] [address] 01/30/2024 11:30 AM EST Office Visit Dermatology at [facility] [address] [place] [address] Nilda Luis MD [facility] [place] [address] 02/14/2024 7:30 AM EST [place] [phone] Joanna Watts MD [facility] [place] [address] documented as of this encounter Procedures Procedure [...] the procedure without a resident. Home phone: [phone] Work phone: [phone] Narrative 11/11/2012 12:34 PM EDT VACUUM ASSISTED [...] are present on specimen digital X-ray. A [employer] Eviva-Stereo 13 Cylinder marker clip was placed. [...] the procedure without a resident. Home phone: [phone] Work phone: [phone] Usman Payne MD IMG MAMMO ORDERABLES * Specimen to Pathology (surgical or derm) (11/07/2012 10:40 AM EDT) AP Specimen 11/07/2012 10:4 0 AM EDT 11/07/2012 10:40 AM EDT Narrative AINSLEY TOWNSEND - 11/07/2012 10:40 AM EDT Specimen requisition ordered. ??Separate Pathology report to follow Mary Sanchez MD PATHOLOGY/CYTOLOGY O RDERABLES AINSLEY TOWNSEND documented in this encounter Visit [...] mLs documented in this encounter Care Teams Molten Iron Pourer Relationship Specialty Start Date End Date Trinh Coates MD [facility] [address] [place] [address] PCP - General 01/11/10 documented as of this encounter
--- OUTSIDE RECORDS SUMMARY | 2023-09-25 11:53 | XMS_ITS | Encounter Summary ---
Author Organization [facility] [place] [address] Care Team Providers Care Floor Runner Name Role Phone Trinh Coates MD Primary Care Provider [phone] Reason for Visit * Consultation (Routine) - Closed Specialty Diagnoses / Procedures Referred By Diamante marin Referred To Contact General Surgery Diagnoses Hyperparathyroidism Procedures Consult, Test & Treat Trinh Coates MD [facility] [address] [facility] [address] [place] [address] [facility] Gen Surgery [address] [place] [address] Referral ID Status Reason Start Date Expiration Date V isits Requested Visits Authorized [id number] Closed Consult, Test & Treat [facility] 09/24/2015 09/23/2016 1 1 Encounter Details Date Type Department Care Team (Late st Contact Info) Description 10/15/2015 3:15 PM EDT Office Visit [place] [address] Valentina Lucas MD [facility] [place] [address] Hyperparathyroidism, primary Social History Tobacco [...] sleep apnea.She will bring her CPAP machine. [facility] Data Patient Characteristics Body mass index is [...] decreased: No Ionized calcium: not examined PTH:high [id number] D: normal Subjective Symptoms: yes Objective Symptoms: [...] 01/22/2024 10:30 AM EST Appointment Mammography/[place] [address] Ladi Mendosa MD [facility] [address] [place] [address] 01/30/2024 11:30 AM EST [facility] [address] [place] [phone] Nilda Luis MD [facility] [place] [address] 02/14/2024 7:30 AM EST Appointment [place] [address] Joanna Watts MD [facility] [place] [address] documented as of this encounter Visit Diagnoses Diagnosis Hyperparathyroidism, primary Primary hyperparathyroidism documented in this encounter Care Teams Floor Runner Relationship Specialty Start Date End Date Trinh Coates MD [facility] [address] [place] [address] PCP - General 01/11/10 documented as of this encounter
--- OUTSIDE RECORDS SUMMARY | 2023-09-25 11:53 | XMS_ITS | Encounter Summary ---
Author Organization [facility] Address [facility] [place] [address] Care Team Providers Care Toll Testboard Worker Name Role Phone Trinh Navarrete MD Primary Care Provider [phone] Encounter Details Date Type Department Care Team (Latest Contact Info) Description 11/12/2014 10:30 AM EDT Office Visit Nephrology [place] [address] Khris Thornton MD [facility] [place] [address] Proteinuria (Primary Dx); Essential hypertension; Hypercalcemia Discharge [...] 11:05 AM EDT Hypertension/Nephrology Consultation Wendy Arriaga [id number] 1965 ID: [id number] y.o. old female seen [...] no ETOH, no drugs. 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 Review of Systems: System Abnormalities Constitutional [...] this interesting patient. >the total time spent [id number] AND total time the provider spent counseling was xxx minutes. Please CC to: TRINH NAVARRETE MD (General) @[email or web address]@ documented in this encounter Plan of Treatment Upcoming Encounters Date Type Department Care Team (Late st Contact Info) Description 01/22/2024 10:30 AM EST Appointment Mammography/[place] [address] Ladi Mendosa MD [facility] [place] [address] 01/30/2024 11:30 AM EST Office Visit Dermatology at [address] [place] [address] Nilda Luis MD [facility] [place] [address] 02/14/2024 7:30 AM EST Appointment [place] [address] Joanna Watts MD [facility] [place] [address] documented as of this encounter Procedures Procedure [...] Proteinuria Essential hypertension Hypercalcemia BASIC METABOLIC PANEL Routine 11/12/2014 11:13 AM EDT Proteinuria Essential hypertension Hypercalcemia PROTEIN/CREATININE RATIO, URINE Routine 11/12/2014 11:00 AM EDT Proteinuria Essential hypertension Hypercalcemia PROTEIN ELECTROPHORESIS, URINE, RANDOM Routine 11/12/2014 11:00 AM EDT Proteinuria Essential hypertension Hypercalcemia documented in this encounter Results * (ABNORMAL) Differential, Automated (11/12/2014 11:13 AM EDT) Neutrophil % 69.0 % CERNER MILLENNIUM Neutrophil Absolute 7.21(H) 1.50 - 6.30 x10(3)/mc L CERNER MILLENNIUM Lymph % 19.3 % CERNER MILLENNIUM Lymphocytes Abs 2.0 1.0 - 3.6 x10(3)/mc L CERNER MILLENNIUM Monocyte % 6.9 % CERNER MILLENNIUM Monocyte Abs 0.7 0.2 - 1.0 x10(3)/mc L CERNER MILLENNIUM Eos % 3.6 % CERNER MILLENNIUM Eosinophils Abs 0.4 0.0 - 0.5 x10(3)/mc L CERNER MILLENNIUM Basophil % 0.9 % CERNER MILLENNIUM Baso Absolute 0.1 0.0 - 0.2 x10(3)/mc L CERNER [...] performed. Immature Gran Absolute 0.03 0.00 - 0.05 x10(3)/mc L CERNER MILLENNIUM Blood specimen (specimen) 11/12/2014 11:13 AM EDT 11/12/2014 11:31 AM EDT Narrative Resulting Agency Comment Spec In Lab Khris Thornton MD HEMATOLOGY ORDERABLE S CERBLADIMIR VANCEENNIUM * (ABNORMAL) Hemogram (11/12/2014 11:13 AM EDT) White Blood Cell 10.4(H) 4.0 - 10.0 x10(3)/mc L CERNER MILLENNIUM Red Blood Cell 4.33 3.93 - 5.22 x10(6)/mc L CERNER MILLENNIUM Hemoglobin 13.7 11.2 - 15.7 gm/dL CERNER MILLENNIUM Hematocrit 40.5 34.0 - 45.0 % CERNER MILLENNIUM Mean Cell Volume 93.5 79.0 - 94.0 fL CERNER MILLENNIUM Mean Cell Hemoglobin 31.6 26.6 - 32.2 pg CERNER MILLENNIUM Mean Cell Hemoglobin Concentration 33.8 32.0 - 36.5 gm/dL CERNER MILLENNIUM Platelet 374(H) 145 - 370 x10(3)/mc L CERNER MILLENNIUM RDW Standard Deviation 46.8(H) 35.0 - 46.0 fL CERNER MILLENNIUM RDW coefficient of variation 13.7 10.9 - 14.4 % CERNER MILLENNIUM Mean Platelet Volume 10.0 9.0 - 12.0 fL CERNER MILLENNIUM Blood specimen (specimen) 11/12/2014 11:13 AM EDT 11/12/2014 11:31 AM EDT Narrative Resulting Agency Comment Spec In Lab Khris Thornton MD HEMATOLOGY ORDERABLE S CERNER MILLENNIUM * (ABNORMAL) Protein Electrophoresis, serum (11/12/2014 11:13 AM EDT) Total Prot Electrophoresis 6.8 6.1 - 8.0 gm/dL CERNER MILLENNIUM Albumin Electrophoresis 4.24 3.60 - 6.00 gm/dL CERNER MILLENNIUM Alpha 1 Globulin 0.16 0.10 - 0.30 gm/dL CERNER MILLENNIUM Alpha 2 Globulin 0.96(H) 0.40 - 0.90 gm/dL CERNER MILLENNIUM [...] Thornton MD CHEMISTRY ORDERABLES Performing Organization Address City/[facility] Co de Phone Number AINSLEY QUINTANILLAIUM * Phosphorus (11/12/2014 11:13 AM EDT) Phosphorus 3.2 2.5 - 4.5 mg/dL [facility] Blood specimen (specimen) 11/12/2014 11:13 AM EDT 11/12/2014 11:31 AM EDT Narrative Resulting Agency Comment Spec In Lab Khris Thornton MD CHEMISTRY ORDERABLES Performing Organization Address [facility] Co de Phone Number [facility] SOCORROIUM * Albumin Level (11/12/2014 11:13 AM EDT) Albumin 4.3 3.2 - 5.2 gm/dL [facility] Blood specimen (specimen) 11/12/2014 11:13 AM EDT 11/12/2014 11:31 AM EDT Narrative Resulting Agency Comment Spec In Lab Khris Thornton MD CHEMISTRY ORDERABLES Performing Organization Address [facility] de Phone Number [facility] * Ferritin (11/12/2014 11:13 AM EDT) Ferritin 43 30 - 400 ng/mL [facility] Comment: Pediatric reference ranges not verified at [facility], interpret with caution. Reference ranges for females greater than 50 years of age approach values for men, i.e., 30-400 ng/mL. Blood specimen (specimen) 11/12/2014 11:13 AM EDT 11/12/2014 11:31 AM EDT Narrative Resulting Agency Comment Spec In Lab Khris Thornton MD CHEMISTRY ORDERABLES Performing Organization Address City/[facility] Co de Phone Number [facility] * (ABNORMAL) PTH (11/12/2014 11:13 AM EDT) Parathyroid Hormone 75(H) 15 - 65 pg/mL CERNER MILLENNIUM Blood specimen (specimen) 11/12/2014 11:13 AM EDT 11/12/2014 11:31 AM EDT Narrative Resulting Agency Comment Spec In Lab Khris Thornton MD CHEMISTRY ORDERABLES CERNER MILLENNIUM * (ABNORMAL) Basic Metabolic Panel (non-fasting) (11/12/2014 11:13 AM EDT) [facility] Signature Glucose 148 65 - 199 mg/dL CERNER MILLENNIUM Comment:Diabetes: >=200 mg/d L plus symptoms Blood Urea Nitrogen 16 8 - 18 mg/dL CERNER MILLENNIUM Creatinine 0.92 0.70 - 1.20 mg/dL CERNER MILLENNIUM Comment: Please note that the pediatric reference intervals supplied above were not validated at [facility]. Results from pediatric patients should be interpreted [...] 105 98 - 107 mmol/L CERNER MILLENNIUM Carbon Dioxide 22 22 - 31 mmol/L CERNER MILLENNIUM Anion Gap 14 5 - 15 mmol/L CERNER MILLENNIUM Calcium 10.9(H) 8.5 - 10.5 mg/dL CERNER MILLENNIUM Est Glomerular Filtration Rate >60 >=60 CERNER MILLENNIUM Comment: This estimated [...] the following links into your internet browser. [email or web address] Blood specimen (specimen) 11/12/2014 11:13 AM EDT 11/12/2014 11:31 AM EDT Narrative Resulting Agency Comment Spec In Lab Khris Thornton MD CHEMISTRY ORDERABLES Performing Organization Address [facility] Co de Phone Number CERNER MILLENNIUM * (ABNORMAL) Protein/Creatinine Ratio, urine (11/12/2014 11:00 AM EDT) Creatinine, Urine 107 mg/dL CERNER MILLENNIUM Protein, Urine 144(H) 0 - 12 mg/dL CERNER MILLENNIUM Protein / Creatinine Ratio, Urine 1.3 ratio CERNER MILLENNIUM Urine specimen (specimen) 11/12/2014 11:00 AM EDT 11/12/2014 1:35 PM EDT Narrative Resulting Agency Comment Spec In Lab Khris Thornton MD URINE ORDERABLES Performing Organization Address [facility] de Phone Number CERNER MILLENNIUM * (ABNORMAL) Protein Electrophoresis, urine, random (11/12/2014 11:00 AM EDT) Protein, Urine 144(H) 0 - 12 mg/dL CE RNER MILLENNIUM U Albumin 83 % total CERNER MILLENNIUM Globulin, Urine 17 % total CERNER MILLENNIUM M1 Band, Urine None Detected None Detected % total CERNER MILLENNIUM U Scan See Note CERNER MILLENNIUM Comment:Please see scanned r eport in Chart Review under the [facility] Laboratory Heading. Urine specimen (specimen) 11/12/2014 11:00 AM EDT 11/12/2014 1:35 PM EDT Narrative Resulting Agency Comment Spec In Lab Khris Thornton MD URINE ORDERABLES Performing Organization Address [facility] Co de Phone Number CERNER MILLENNIUM documented in this encounter Visit Diagnoses Diagnosis Proteinuria- Primary Essential hypertension Unspecified essential hypertension Hypercalcemia documented in this encounter Care Teams Toll Testboard Worker Relationship Specialty Start Date End Date Trinh Navarrete MD [address] [place] [address] PCP - General 01/11/10 documented as of this encounter
--- OUTSIDE RECORDS SUMMARY | 2023-09-25 11:53 | XMS_ITS | Encounter Summary ---
Author Organization [facility] [place] [address] Care Team Providers Care Fish Culturist Name Role Phone Trinh Coates MD Primary Care Provider [phone] Encounter Details Date Type Department Care Team (Latest Contact Info) Description 11/07/2012 9:56 AM EDT - 11/07/2012 11:59 PM EDT Hospital [place] [phone] Abnormal findings on diagnostic imaging of breast [...] 01/22/2024 10:30 AM EST Appointment Mammography/[place] [address] Ladi Mendosa MD [facility] [place] [address] 01/30/2024 11:30 AM EST Office Visit Dermatology at [place] [address] [place] [address] Nilda Luis MD [facility] [place] [address] 02/14/2024 7:30 AM [place] [address] Joanna Watts MD [facility] [address] documented as of this encounter Procedures Procedure [...] the procedure without a resident. Home phone: [phone] Work phone: [phone] Narrative 11/11/2012 12:34 PM EDT VACUUM ASSISTED [...] are present on specimen digital X-ray. A [employer] Eviva-Stereo 13 Cylinder marker clip was placed. [...] the procedure without a resident. Home phone: [phone] Work phone: [phone] Usman Payne MD IM MAMMO ORDERABLES * Surgical Pathology Report (11/07/2012 10:40 AM EDT) Surgical Pathology Report ? [facility] ? Provider: ?? VICENTE SANCHEZ ? Pt. Name: ?? WENDY ARRIAGA ? Acc #: ?[id number] ?Pt. ? Col Date: ?? 11/07/2012 ? [...] ? ---Clinical Information--- ? Specimen Submitted: ? [facility] ? Provider: ?? VICENTE SANCHEZ ? Pt. Name: ?? WENDY ARRIAGA ? Acc #: ?[id number] ?Pt. ? Col Date: ?? 11/07/2012 ? /Sex: ?1965,(47 years),Female ? Rec Date: ?? 11/07/2012 ? LOC: ?3S ? SURGICAL PATHOLOGY ? A - Right breast, SBx, 9 gauge with and without calcifications ? 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 Clinical Diagnosis: ? Same ? Report to: ? Trinh Coates MD ? [facility] ? [address] ? [place] [address] AINSLEY TOWNSEND 11/07/2012 10:4 0 AM EDT Vicente Sanchez MD PATHOLOGY/CYTOLOGY O RDERABLES Performing Organization Address City/State/[place] Co de Phone Number AINSLEY TOWNSEND documented in this encounter Visit Diagnoses Diagnosis Abnormal findings on diagnostic imaging of breast Other (abnormal) findings on radiological examination of breast documented in this encounter Care Teams Fish Culturist Relationship Specialty Start Date End Date Trinh Coates MD [address] [place] [address] PCP - General 01/11/10 documented as of this encounter
--- OUTSIDE RECORDS SUMMARY | 2023-09-25 11:53 | XMS_ITS | Encounter Summary ---
Author Organization [facility] Address [facility] [place] [address] Care Team Providers Care Order Entry Technician Name Role Phone Trinh Coates MD Primary Care Provider Encounter Details Date Type Department Care Team (Latest Contact Info) Description 10/15/2015 11:00 AM EDT Laboratory Appointment Lab [address] [place] [id number] Hyperparathyroidism , primary Social History Tobacco Use [...] 10:30 AM EST Appointment Mammography/[place] [address] Ladi Mendosa MD [facility] [address] [place] [address] 01/30/2024 11:30 AM EST Office Visit Dermatology at [facility] [address] [place] [phone] Nilda Luis MD [facility] [place] [address] 02/14/2024 7:30 AM EST Appointment [place] [address] Joanna Watts MD [facility] [place] [address] documented as of this encounter Procedures Procedure Name Priority Date/Time Associated Diagnosis Comments PTH Routine 10/15/2015 10:41 AM EDT Hyperparathyroidism , primary VITAMIN D, 25-HYDROXY Routine 10/15/2015 10:41 AM EDT Hyperparathyroidism , primary CALCIUM Routine 10/15/2015 10:41 AM EDT Hyperparathyroidism , primary documented in this encounter Results * VIT D Total Evaluation (10/15/2015 10:41 AM EDT) Vitamin D Total 25 OH 52 30 - 100 ng/mL [facility] [...] be considered to be insufficient or deficient. [email or web address] The [employer] Vitamin D Immunoassay detects both 25-OH Vitamin D2 and 25-OH Vitamin D3, but only a total Vitamin D concentration is reported. Blood specimen (specimen) 10/15/2015 10:41 AM EDT 10/15/2015 10:51 AM EDT Narrative Resulting Agency Comment Spec In Lab Valentina Lucas MD CHEMISTRY ORDERAB LES [facility] [place] [address] * (ABNORMAL) PTH (10/15/2015 10:41 AM EDT) Parathyroid Hormone 77(H) 15 - 65 pg/mL [facility] Blood specimen (specimen) 10/15/2015 10:41 AM EDT 10/15/2015 10:51 AM EDT Narrative Resulting Agency Comment Spec In Lab Valentina Lucas MD CHEMISTRY ORDERAB LES Performing Organization Address [facility]/[place] [address] * (ABNORMAL) Calcium (10/15/2015 10:41 AM EDT) Calcium 11.3(H) 8.5 - 10.5 mg/dL [facility] Blood specimen (specimen) 10/15/2015 10:41 AM EDT 10/15/2015 10:51 AM EDT Narrative Resulting Agency Comment Spec In Lab Valentina Lucas MD CHEMISTRY ORDERAB LES Performing Organization Address [facility] Co de Phone Number [facility] [place] [address] documented in this encounter Visit Diagnoses Diagnosis Hyperparathyroidism, primary Primary hyperparathyroidism documented in this encounter Care Teams Order Entry Technician Relationship Specialty Start Date End Date Trinh Coates MD [address]is[address] [place] [address] PCP - General 01/11/10 documented as of this encounter
--- OUTSIDE RECORDS SUMMARY | 2023-09-25 11:53 | XMS_ITS | Encounter Summary ---
Author Organization [facility] Address [facility] [place] [address] Care Team Providers Care Tool Marker Name Role Phone Trinh Coates MD Primary Care Provider [phone] Reason for Visit * Auth/Cert Specialty Diagnoses / Procedures Referred By Diamante marin Referred To Contact Diagnoses Hyperparathyroidism HYPERPARATHYROIDISM Procedures PRO EXPLORE PARATHYROID GLANDS PRG EMG, LARYNX PARATHYROIDECTOMY OR EXPLORATION OF PARATHYROID(S) FACIAL NERVE MONITORING, SETUP LARYNGEAL Referral ID Status Reason Start Date Expiration Date Visits Re quested Visits Authorized [id number] 1 1 Encounter Details Date Type Department Care Team (Late st Contact Info) Description 11/02/2015 7:30 AM EDT - 11/02/2015 10:57 AM EDT Surgery [place] [address] Sherine Fontana MD [facility] [place] [address] PARATHYROIDECTOMY OR EXPLORATION OF PARATHYROID(S) (WRVU 15.6) [...] this encounter Discharge Summaries * Nathaly Saenz, KILN DRAWER - 11/03/2015 10:00 AM EDT General Surgery [...] priorto surgery. Wound: anterior transverse neck incision ABALONE FISHERMAN with dermabond; no swelling, erythema, or drainage. [...] AM LAB, THREE L Lab 3L [facility] 12/09/2015 11:00 AM Sherine Fontana MD [facility] Outpatient Services/Studies: Calcium Standing Status: Future [...] Take NSAIDS or Tylenol every 6 hours [id number] for the first 3-5 days following surgery [...] or grocery store, as it is available [id number] and does not require a prescription. The [...] please call the General Surgery nurse at [phone], since this may mean that you need [...] will be mailed to you Please call [phone] to confirm the date and time of [...] with the Surgery nurses. The number is [phone]. - During the night or weekends call the [facility] undercutter operator at [phone] and ask to speak to the surgery resident content developer for general surgery. Please note: Your surgeon may not be Supplier Relationship Director, especially during the night or on weekends, so be ready to describe yourself and your surgery when you call. Follow up appointments: Future Appointments Date Time Provider Department Center 12/09/2015 10:00 AM LAB, THREE L Lab 3L [facility] HENDRIX 12/09/2015 11:00 AM Sherine Fontana MD [facility] [x] Follow-up appointment with General Surgery has already been scheduled [] A request for a follow-up appointment has been made and you should receive information via phone/mail in the next week. If you do not hear anything, please call the clinic at [phone] to confirm or reschedule. If you need a prior authorization, please call the General Surgery Clinic nurses [phone] for prior authorizations assistance General Instructions None [...] Saenz APRN Surgical Oncology Service Team Pager #[phone] 11/03/2015 2:46 PM documented in this encounter [...] Take NSAIDS or Tylenol every 6 hours afzbxu-jts-iicbr for the first 3-5 days following surgery [...] or grocery store, as it is available ixhh-itu-zhsaool and does not require a prescription. The [...] please call the General Surgery nurse at [phone], since this may mean that you need [...] will be mailed to you Please call [phone] to confirm the date and time of [...] with the Surgery nurses. The number is [phone]. - During the night or weekends call the [facility] undercutter operator at [phone] and ask to speak to the surgery resident content developer for general surgery. Please note: Your surgeon may not be Supplier Relationship Director, especially during the night or on weekends, so be ready to describe yourself and your surgery when you call. Follow up appointments: Future Appointments Date Time Provider Department [place] 12/09/2015 10:00 AM LAB, THREE L Lab 3L LAD[facility] RASHEEDAAZ 12/09/2015 11:00 AM Sherine Fontana MD [facility] [x] Follow-up appointment with General Surgery has already been scheduled [] A request for a follow-up appointment has been made and you should receive information via phone/mail in the next week. If you do not hear anything, please call the clinic at [phone] to confirm or reschedule. If you need a prior authorization, please call the General Surgery Clinic nurses [phone] for prior authorizations assistance documented in this [...] this time, but in agreement to accepting [place] advanced planning booklet and reviewing at home. 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 limitations Home Environment: [...] Coverage: MVP Preferred Pharmacy: [facility] Other: Also uses [facility], but prefers [facility] for any new scripts related to this discharge Primary Care Provider: TRINH COATES MD [phone] Patient/Caregiver Goals of Treatment: Home without services [...] MIRIAM RANDALL RN Pager: covering for pager [phone] * Tawana Arrieta, RN - 11/02/2015 4:19 [...] call [place] within reach, Hourly rounding by RN/CLERICAL OFFICE. Close to nurse's station. Bed alarm / [...] Fontana MD - 11/02/2015 12:19 PM EDT [facility] Operative Note Patient Name: Wendy Sandoval : [id number] MR#: [id number] Case Date: 11/02/2015 Surgeon: Surgeon(s) and Role: [...] anesthesia was completed by anesthesiology with the [employer] recurrent laryngeal nerve monitoring system. A crease [...] 01/22/2024 10:30 AM EST Appointment Mammography/[place] [address] Ladi Mendosa MD [facility] HEMATOLOGY [place] [address] 01/30/2024 11:30 AM EST Office Visit Dermatology at [address] [phone] Nilda Luis MD [facility] [place] [address] 02/14/2024 7:30 AM EST App[place]ment [place] [address] Joanna Watts MD [facility] [place] [address] documented as of this encounter Procedures Procedure Name Priority Date/Time Associated Diagnosis Comments ECG SCAN 11/04/2015 12:00 AM EDT PTH Routine 11/03/2015 7:36 AM EDT CALCIUM Routine 11/03/2015 7:36 AM EDT CARDIAC ENZYMES ([facility]) Routine 11/02/2015 2:00 PM EDT EKG 12-LEAD STAT 11/02/2015 1:47 PM EDT Essential hypertension, hypertension with unspecified goal SPECIMEN TO PATHOLOGY Routine 11/02/2015 12:24 PM EDT SPECIMEN TO PATHOLOGY STAT 11/02/2015 11:59 AM EDT INTRAOPERATIVE PTH ([facility]) STAT 11/02/2015 11:46 AM EDT SPECIMEN TO PATHOLOGY STAT 11/02/2015 11:42 AM EDT SPECIMEN TO PATHOLOGY STAT 11/02/2015 11:13 AM EDT SPECIMEN TO PATHOLOGY STAT 11/02/2015 11:00 AM EDT SPECIMEN TO PATHOLOGY STAT 11/02/2015 10:45 AM EDT INTRAOPERATIVE PTH ([facility]) STAT 11/02/2015 9:50 AM EDT INTRAOPERATIVE PTH ([facility]) STAT 11/02/2015 9:45 AM EDT SPECIMEN TO PATHOLOGY Routine 11/02/2015 9:38 AM EDT INTRAOPERATIVE PTH ([facility]) STAT 11/02/2015 9:35 AM EDT SPECIMEN TO PATHOLOGY Routine 11/02/2015 9:21 AM EDT SPECIMEN TO PATHOLOGY STAT 11/02/2015 9:17 AM EDT SURGICAL PATHOLOGY REPORT Routine 11/02/2015 9:16 AM EDT INTRAOPERATIVE PTH ([facility]) STAT 11/02/2015 9:12 AM EDT INTRAOPERATIVE PTH ([facility]) STAT 11/02/2015 8:59 AM EDT THYMECTOMY, TRANSCERVICAL APPROACH (WRVU 17.16) 11/02/2015 7:39 AM EDT HYPERPARATHYROIDISM FACIAL NERVE MONITORING, SETUP LARYNGEAL (WRVU 1.57) 11/02/2015 7:39 AM EDT HYPERPARATHYROIDISM PARATHYROIDECTOMY OR EXPLORATION OF PARATHYROID(S) (WRVU 15.6) 11/02/2015 7:39 AM EDT HYPERPARATHYROIDISM documented in this encounter Results * Calcium (12/09/2015 10:20 AM EDT) Calcium 9.3 8.5 - 10.5 mg/dL [facility] Blood specimen (specimen) 12/09/2015 10:20 AM EDT 12/09/2015 10:25 AM EDT Narrative Resulting Agency Comment Spec In Lab Sherine Fontana MD CHEMISTRY ORDERAB LES Performing Organization Address [facility]/ZIP Co de Phone Number [facility] [place] [address] * SCAN DOC: ECG (11/04/2015 12:00 AM EDT) Scanning Provider MEDIA MGR SCAN EXT O RDR/RSLT * Calcium (11/03/2015 7:36 AM EDT) Calcium 9.4 8.5 - 10.5 mg/dL [facility] Blood specimen (specimen) 11/03/2015 7:36 AM EDT 11/03/2015 7:44 AM EDT Narrative Resulting Agency Comment Spec In Lab Sherine Fontana MD CHEMISTRY ORDERAB LES Performing Organization Address City/[facility]/ZIP Co de Phone Number [facility] [place] [address] * (ABNORMAL) PTH (11/03/2015 7:36 AM EDT) Parathyroid Hormone 7(L) 15 - 65 pg/mL [facility] Blood specimen (specimen) 11/03/2015 7:36 AM EDT 11/03/2015 7:44 AM EDT Narrative Resulting Agency Comment Spec In Lab Sherine Fontana MD CHEMISTRY ORDERAB LES Performing Organization Address [facility] Co de Phone Number [facility] [place] [address] * Cardiac Enzymes (11/02/2015 2:00 PM EDT) [facility] Troponin-T <0.03 <=0.03 ng/mL [facility] Comment: 0.03 ng/mL: Represents the 99th percentile upper reference limit for normals. >0.03 ng/mL: Elevated cardiac troponin T level indicative of myocardial damage. Diagnosis of acute, evolving or recent [place] requires a typical rise and gradual fall [...] consensus document of the Joint Society of Cardiology/[place] College [employer]iology Committee for the redefinition of myocardial infarction. ??Journal of the [place] College of [employer]iology 2000; 36: 959-969] Creatine Kinase 130 0 - 160 unit/L [facility] Blood specimen (specimen) 11/02/2015 2:00 PM EDT 11/02/2015 2:02 PM EDT Narrative Resulting Agency Comment Spec In Lab Sherine Fontana MD CHEMISTRY ORDERAB LES Performing Organization Address [facility] Co de Phone Number [facility] [place] [address] * EKG 12 Lead (11/02/2015 1:47 PM EDT) [facility] Ventricular rate 110 BPM MUSE SYSTEM Atrial Rate 110 BPM MUSE SYSTEM P-R Interval 96 ms MUSE SYSTEM QRS Duration 82 ms MUSE SYSTEM Q-T Interval 488 ms MUSE SYSTEM QTC Calculated (Bezet) 660 ms MUSE SYSTEM Calculated R Jerome -22 degrees MUSE SYSTEM Calculated T Jerome 44 degrees MUSE SYSTEM INTERPRETATION Sinus tachycardia with short [place] Nonspecific ST and T wave abnormality Abnormal ECG No previous ECGs available Confirmed by MD Alex, Denny ([id number]) on 11/02/2015 4:12:47 PM MUSE SYSTEM 11/02/2015 1:47 PM EDT 11/02/2015 4:12 PM EDT Maximilian Alberto MD ECG ORDERABLES Performing Organization Address City/[facility] Co de Phone Number MUSE SYSTEM * Specimen to Pathology (surgical or derm) (11/02/2015 12:24 PM EDT) AP Specimen 11/02/2015 12:2 4 PM EDT 11/02/2015 12:24 PM EDT Narrative [facility] - 11/02/2015 12:24 PM EDT Specimen requisition ordered. ??Separate Pathology report to follow Sherine Fontana MD PATHOLOGY/CYTOLOG Y ORDERABLES Performing Organization Address [facility] Co de Phone Number [facility] [place] [address] * Specimen to Pathology (surgical or derm) (11/02/2015 11:59 AM EDT) AP Specimen 11/02/2015 11:5 9 AM EDT 11/02/2015 11:59 AM EDT Narrative [facility] - 11/02/2015 11:59 AM EDT Specimen requisition ordered. ??Separate Pathology report to follow Sherine Fontana MD PATHOLOGY/CYTOLOG Y ORDERABLES Performing Organization Address City/[facility] Co de Phone Number [facility] [place] [address] * (ABNORMAL) Intraoperative PTH (11/02/2015 11:46 AM EDT) PTH, Intraoperative 14(L) 15 - 65 pg/mL [facility] Comment: Called by: harry, Read back by: kevin barbosa, Date/Time:11/02/15 12:34. A 50 % decrease in venous iPTH levels at 10 min post adenoma excision is expected if all the hypersecreting parathyroid tissue has been removed (David BHAT et al. Surgery 1993:114; [id number]) Blood specimen (specimen) 11/02/2015 11:46 AM EDT 11/02/2015 11:52 AM EDT Narrative Resulting Agency Comment Spec In Lab Sherine Fontana MD CHEMISTRY ORDERAB LES Performing Organization Address [facility] [place] [address] * Specimen to Pathology (surgical or derm) (11/02/2015 11:42 AM EDT) AP Specimen 11/02/2015 11:4 2 AM EDT 11/02/2015 11:42 AM EDT Narrative [facility] - 11/02/2015 11:42 AM EDT Specimen requisition ordered. ??Separate Pathology report to follow Sherine Fontana MD PATHOLOGY/CYTOLOG Y ORDERABLES Performing Organization Address [facility] [place] [address] * Specimen to Pathology (surgical or derm) (11/02/2015 11:13 AM EDT) AP Specimen 11/02/2015 11:1 3 AM EDT 11/02/2015 11:13 AM EDT Narrative [facility] - 11/02/2015 11:13 AM EDT Specimen requisition ordered. ??Separate Pathology report to follow Sherine Fontana MD PATHOLOGY/CYTOLOG Y ORDERABLES Performing Organization Address [facility] [place] [address] * Specimen to Pathology (surgical or derm) (11/02/2015 11:00 AM EDT) AP Specimen 11/02/2015 11:0 0 AM EDT 11/02/2015 11:00 AM EDT Narrative [facility] - 11/02/2015 11:00 AM EDT Specimen requisition ordered. ??Separate Pathology report to follow Sherine Fontana MD PATHOLOGY/CYTOLOG Y ORDERABLES [facility] [place] [address] * Specimen to Pathology (surgical or derm) (11/02/2015 10:45 AM EDT) AP Specimen 11/02/2015 10:4 5 AM EDT 11/02/2015 10:45 AM EDT Narrative [facility] - 11/02/2015 10:45 AM EDT Specimen requisition ordered. ??Separate Pathology report to follow Sherine Fontana MD PATHOLOGY/CYTOLOG Y ORDERABLES Performing Organization Address [facility] [place] [address] * (ABNORMAL) Intraoperative PTH (11/02/2015 9:50 AM EDT) PTH, Intraoperative 66(H) 15 - 65 pg/mL [facility] Comment: Called by: RENETTA, Read back by: Kevin, Date/Time:11/02/15 10:24 15-min post excision. A 50 % decrease in venous iPTH levels at 10 min post adenoma excision is expected if all the hypersecreting parathyroid tissue has been removed (David GL et al. Surgery 1993:114; [id number]) Blood specimen (specimen) 11/02/2015 9:50 AM EDT 11/02/2015 9:55 AM EDT Narrative Resulting Agency Comment Spec In Lab Sherine Fontana MD CHEMISTRY ORDERAB LES Performing Organization Address City/[facility]/ZIP Co de Phone Number [facility] [place] [address] * (ABNORMAL) Intraoperative PTH (11/02/2015 9:45 AM EDT) PTH, Intraoperative 79(H) 15 - 65 pg/mL [facility] Comment: Called by: RENETTA, Read back by: Edith, Date/Time:11/02/15 10:18 *10-min post-excision. A 50 % decrease in venous iPTH levels at 10 min post adenoma excision is expected if all the hypersecreting parathyroid tissue has been removed (David BHAT et al. Surgery 1993:114; [id number]) Blood specimen (specimen) 11/02/2015 9:45 AM EDT 11/02/2015 9:49 AM EDT Narrative Resulting Agency Comment Spec In Lab Sherine Fontana MD CHEMISTRY ORDERAB LES Performing Organization Address [facility] Co de Phone Number [facility] [place] [address] * Specimen to Pathology (surgical or derm) (11/02/2015 9:38 AM EDT) AP Specimen 11/02/2015 9:38 AM EDT 11/02/2015 9:38 AM EDT Narrative [facility] - 11/02/2015 9:38 AM EDT Specimen requisition ordered. ??Separate Pathology report to follow Sherine Fontana MD PATHOLOGY/CYTOLOG Y ORDERABLES Performing Organization Address [facility] [place] [address] * (ABNORMAL) Intraoperative PTH (11/02/2015 9:35 AM EDT) PTH, Intraoperative 255(H) 15 - 65 pg/mL [facility] Comment: Called by: RENETTA, Read back by: Edith, Date/Time:11/02/15 10:10. *repeat pre-excision A 50 % decrease in venous iPTH levels at 10 min post adenoma excision is expected if all the hypersecreting parathyroid tissue has been removed (David BHAT et al. Surgery 1993:114; [id number]) Blood specimen (specimen) 11/02/2015 9:35 AM EDT 11/02/2015 9:39 AM EDT Narrative Resulting Agency Comment Spec In Lab Sherine Fontana MD CHEMISTRY ORDERAB LES Performing Organization Address City/[facility] Co de Phone Number [facility] [place] [address] * Specimen to Pathology (surgical or derm) (11/02/2015 9:21 AM EDT) AP Specimen 11/02/2015 9:21 AM EDT 11/02/2015 9:21 AM EDT Narrative [facility] - 11/02/2015 9:21 AM EDT Specimen requisition ordered. ??Separate Pathology report to follow Sherine Fontana MD PATHOLOGY/CYTOLOG Y ORDERABLES Performing Organization Address [facility] [place] [address] * Specimen to Pathology (surgical or derm) (11/02/2015 9:17 AM EDT) AP Specimen 11/02/2015 9:17 AM EDT 11/02/2015 9:17 AM EDT Narrative [facility] - 11/02/2015 9:17 AM EDT Specimen requisition ordered. ??Separate Pathology report to follow Sherine Fontana MD PATHOLOGY/CYTOLOG Y ORDERABLES Performing Organization Address [facility] [place] [address] * Surgical Pathology Report (11/02/2015 9:16 AM EDT) Final Diagnosis [id number] ? [facility]; B The signing pathologist has (i) [...] 0.1 cm, weighing 0.01 grams. Tissue Description: [place] tissue, frozen section remnant. Sections/Processi ng: Specimen [...] 0.1 cm, weighing 0.04 grams. Tissue Description: [place] tissue fragment, frozen section remnants. Sections/Processi ng: [...] node.(R4) ??rm _ 11/12/2015 2:20 PM EDT [facility] LYMPH NODE SPECIMEN / Unknown 11/02/2015 [...] EDT Sherine Fontana MD PATHOLOGY/CYTOLOG Y ORDERABLES [facility] [place] [address] * (ABNORMAL) Intraoperative PTH (11/02/2015 9:12 AM EDT) PTH, Intraoperative 380(H) 15 - 65 pg/mL [facility] Comment: Called by: RENETTA, Read back by: Kevin Bocanegra, Date/Time:11/02/15 09:47. Pre-Excision #1 A 50 % decrease in venous iPTH levels at 10 min post adenoma excision is expected if all the hypersecreting parathyroid tissue has been removed (David GL et al. Surgery 1993:114; [id number]) Corrected from 380 pg/mL [HI] on 11/02/15 09:56 by Tahira Munguia Blood specimen (specimen) 11/02/2015 9:12 AM EDT 11/02/2015 9:16 AM EDT Narrative Resulting Agency Comment Spec In Lab Sherine Fontana MD CHEMISTRY ORDERAB LES Performing Organization Address [facility] Co de Phone Number [facility] [place] [address] * (ABNORMAL) Intraoperative PTH (11/02/2015 8:59 AM EDT) PTH, Intraoperative 284(H) 15 - 65 pg/mL [facility] Comment: Called by: RENETTA, Read back by: Kevin Webb, Date/Time:11/02/15 09:32. *Baseline A 50 % decrease in venous iPTH levels at 10 min post adenoma excision is expected if all the hypersecreting parathyroid tissue has been removed (David GL et al. Surgery 1993:114; [id number]) Blood specimen (specimen) 11/02/2015 8:59 AM EDT 11/02/2015 9:02 AM EDT Narrative Resulting Agency Comment Spec In Lab Sherine Fontana MD CHEMISTRY ORDERAB LES Performing Organization Address City/[facility] Co de Phone Number [facility] [place] [address] documented in this encounter Visit Diagnoses Not [...] Discontinued 2220 (Given - Provider: Becki Colon, RN) valsartan (DIOVAN) tablet 160 mg 160 [...] Arrieta, JENNYFER)2219 (Given - Provider: Becki Colon, JENNYFER) 0355 (Given - Provider: Mariposa Wynne, JENNYFER)1311 [...] PACU Recovery 1319 (Given - Provider: Lio Le, RN)1325 (Given - Provider: Lio Le, RN) [...] <60 1424 (Given - Provider: Lio Le, JENNYFER) 0048 (Given - Provider: Becki Colon RN) [...] Routine 1053 (Given - Provid er: Mariel Dill, RN) oxyCODONE (ROXICODONE) immediate release tablet 5 mg 5 mg, Oral, EVERY 4 HOURS PRN, Starting on Sun11/02/15 at 1425, Until Sun11/03/15 at 1825, Pain, May repeat once in 30 minutes if ineffective., Routine 1434 (Given - Provider: Lio Le, RN)1751 (Given - Provider: Tawana Arrieta, RN)2220 (Given - Provider: Becki Colon, RN) [...] first. documented in this encounter Care Teams Tool Marker Relationship Specialty Start Date End Date Trinh Coates MD [facility] [address] [place] [address] PCP - General 01/11/10 documented as of this encounter
--- OUTSIDE RECORDS SUMMARY | 2023-09-25 11:53 | XMS_ITS | Encounter Summary ---
Author Organization [facility] Address [facility] [place] [address] Care Team Providers Care Machine Operator Picker Name Role Phone Trinh Coates MD Primary Care Provider [phone] Reason for Visit * Reason Comments Psoriasis Encounter Details Date Type Department Care Team (Late st Contact Info) Description 09/08/2013 1:45 PM EDT Follow-Up Dermatology at [facility] [address] [place] [address] Ernestine Garcia MD [facility] DR MURILLO -[place] [address] Psoriasis (Primary Dx); Neoplasm of unspecified nature [...] documented in this encounter Progress Notes * Ernestine Garcia MD - 09/08/2013 2:11 PM EDT Date of office visit: 09/08/2013 Wendy Arriaga : 1965 Provider: Ernestine Garcia MD SKIN HISTORY: Psoriasis HPI Wendy Arriaga is a 48 y.o. 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 Significant skin findings: Skin: Skin examination of Elbows, left knee, left posterior leg, right ankle. Significant skin findings: 1. Schlater scaling papules, elbows, left knee, left posterior [...] for and in the presence of Dr. Garcia: Kera Chawla LPN I reviewed and edited [...] accuracy of the documentation in this encounter.MD Ernestine OCAMPO MD Section of Dermatology [facility] documented in this encounter Plan of Treatment Upcoming Encounters Date Type Department Care Team (Late st Contact Info) Description 01/22/2024 10:30 AM EST Appointment Mammography/[place] [phone] Ladi Mendosa MD [facility] [place] [address] 01/30/2024 11:30 AM EST Office Visit Dermatology at [facility] [address] [place] [address] Nilda Luis MD [facility] [place] [address] 02/14/2024 7:30 AM EST Appointment Radiology at [place] [phone] Joanna Watts MD [facility] [place] [address] documented as of this encounter Procedures Procedure Name Priority Date/Time Associated Diagnosis Comments SPECIMEN TO PATHOLOGY (NON-OR) Routine 09/08/2013 4:17 PM EDT Neoplasm of unspecified nature of bone, soft tissue, and skin SURGICAL PATHOLOGY REPORT Routine 09/08/2013 4:17 PM EDT documented in this encounter Results * Surgical Pathology Report (09/08/2013 4:17 PM EDT) Final Diagnosis ? [facility] ? Provider: ?? ERNESTINE GARCIA ?Pt. Name: ?? WENDY ARRIAGA ? Acc #: ?[id number] ? Pt. ? Col Date: ?? 09/08/2013 [...] Clinical Diagnosis: ? Nevus, rule out atypia 09/11/2013 4:16 PM EDT [facility] SPECIMEN FROM SKIN / Unknown 09/08/2013 4:17 PM EDT 09/08/2013 4:17 PM EDT Ernestine Garcia MD PATHOLOGY/CYTOLOGY O SHANITA Performing Organization Address [facility] Co de Phone Number AINSLEY PINKYPAT [facility] [place] [address] * Specimen to Pathology (NON-OR) (09/08/2013 4:17 PM EDT) AP Specimen 09/08/2013 4:17 PM EDT 09/08/2013 4:17 PM EDT Narrative [facility] - 09/08/2013 4:17 PM EDT Specimen requisition ordered. ??Separate Pathology report to follow Ernestine Garcia MD PATHOLOGY/CYTOLOGY O SHANITA Performing Organization Address [facility] Co de Phone Number [facility] documented in this encounter Visit Diagnoses Diagnosis Psoriasis- Primary Other psoriasis Neoplasm of unspecified nature of bone, soft tissue, and skin Multiple benign nevi Benign neoplasm of skin, site unspecified documented in this encounter Care Teams Machine Operator Picker Relationship Specialty Start Date End Date Trinh Coates MD [address] [place] [address] PCP - General 01/11/10 documented as of this encounter
--- OUTSIDE RECORDS SUMMARY | 2023-09-25 11:53 | XMS_ITS | Encounter Summary ---
Author Organization [facility] [place] [address] Care Team Providers Care Prosthetic Technician Name Role Phone Trinh Coates MD Primary Care Provider [phone] Reason for Referral * Diagnostic Test (Routine) - Closed Specialty Diagnoses / Procedures Referred By Diamante marin Referred To Contact Radiology Diagnoses Hyperparathyroidism, primary Procedures NM Parathyroid w/Spect & Thyroid Imaging Valentina Lucas MD [facility] [place] [address] [place] [address] Referral ID Status Reason Start Date Expiration Date V isits Requested Visits Authorized [id number] Closed Specialty Service Requested 09/25/2015 09/24/2016 3 3 Encounter Details Date Type Department Care Team (Late st Contact Info) Description 09/25/2015 Orders Only [place] [address] Valentina Lucas MD [facility] [place] [address] Hyperparathyroidism, primary Social History Tobacco [...] 01/22/2024 10:30 AM EST Appointment Mammography/[place] [phone] Ladi Mendosa MD [facility] HEMATOLOGY [place] [address] 01/30/2024 11:30 AM EST Office Visit Dermatology at [place] [address] [place] [phone] Nilda Luis MD [facility] [place] [address] 02/14/2024 7:30 AM EST Appointment [place] [address] Joanna Watts MD [facility] [place] [address] documented as of this encounter Results * [...] lower pole parathyroid adenoma. Valentina Lucas MD [facility] NM ORDERABLES * VIT D Total Evaluation (10/15/2015 10:41 AM EDT) Vitamin D Total 25 OH 52 30 - 100 ng/mL [facility] Comment: Deficient <10 ng/mL Insufficient 10 to 29 ng/mL Sufficient 30 to 100 ng/mL Potential Intoxication >100 ng/mL According to the US National Osteoporosis Foundation, Vitamin D concentrations >30 ng/mL are sufficient to protect bone health. ??The National Kidney Foundation has similarly stated that patients with Vitamin D concentrations <30ng/mL should be considered to be insufficient or deficient. http://[employer].Productiv/DHnatlkidneyfoundation http://[employer] A/S/[facility] The IDS i[employer] Vitamin D Immunoassay detects both 25-OH Vitamin D2 and 25-OH Vitamin D3, but only a total Vitamin D concentration is reported. Blood specimen (specimen) 10/15/2015 10:41 AM EDT 10/15/2015 10:51 AM EDT Narrative Resulting Agency Comment Spec In Lab Valentina Lucas MD CHEMISTRY ORDERAB LES Performing Organization Address [facility] Co de Phone Number [facility] [place] [address] * (ABNORMAL) PTH (10/15/2015 10:41 AM EDT) Parathyroid Hormone 77(H) 15 - 65 pg/mL [facility] Blood specimen (specimen) 10/15/2015 10:41 AM EDT 10/15/2015 10:51 AM EDT Narrative Resulting Agency Comment Spec In Lab Valentina Lucas MD CHEMISTRY ORDERAB LES Performing Organization Address [facility] Co de Phone Number [facility] [place] [address] * (ABNORMAL) Calcium (10/15/2015 10:41 AM EDT) Calcium 11.3(H) 8.5 - 10.5 mg/dL [facility] Blood specimen (specimen) 10/15/2015 10:41 AM EDT 10/15/2015 10:51 AM EDT Narrative Resulting Agency Comment Spec In Lab Valentina Lucas MD CHEMISTRY ORDERAB LES Performing Organization Address [facility] Co de Phone Number [facility] [place] [address] documented in this encounter Visit Diagnoses Diagnosis Hyperparathyroidism, primary Primary hyperparathyroidism Hyperparathyroidism, primary Primary hyperparathyroidism documented in this encounter Care Teams Prosthetic Technician Relationship Specialty Start Date End Date Trinh Coates MD [address] [place] [address] PCP - General 01/11/10 documented as of this encounter
--- OUTSIDE RECORDS SUMMARY | 2023-09-25 11:53 | XMS_ITS | Encounter Summary ---
Author Organization [facility] Address [facility] [place] [address] Care Team Providers Care Linotype Machinist Apprentice Name Role Phone Trinh Coates MD Primary Care Provider [phone] Reason for Visit * Reason Comments Psoriasis Encounter Details Date Type Department Care Team (Late st Contact Info) Description 03/15/2013 11:15 AM EST Office Visit Dermatology at [address] [phone] Ernestine Gaines MD [facility] [place] [address] Psoriasis (Primary Dx) Discharge Disposition: Home Social [...] Denies family history of melanoma 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 EXAM General: NAD, pleasant, cooperative Skin: Skin examination of Face, back, abdomen, right arm, bilateral hands, bilateral legs and feet. Significant skin findings: Lodgepole scaling papules, grouped on dorsum of hands, [...] months Ernestine Gaines MD Section of Dermatology [facility] documented in this encounter Plan of Treatment Upcoming Encounters Date Type Department Care Team (Late st Contact Info) Description 01/22/2024 10:30 AM EST Appointment Mammography/[place] [phone] Ladi Mendosa MD [facility] HEMATOLOGY [place] [address] 01/30/2024 11:30 AM EST Office Visit Dermatology at [place] [address] [place] [phone] Nilda Luis MD [facility] [place] [address] 02/14/2024 7:30 AM EST Appointment [place] [phone] Joanna Watts MD [facility] [address] documented as of this encounter Visit Diagnoses Diagnosis Psoriasis- Primary Other psoriasis documented in this encounter Care Teams Linotype Machinist Apprentice Relationship Specialty Start Date End Date Trinh Coates MD [facility] [address] [place] [address] PCP - General 01/11/10 documented as of this encounter
--- OUTSIDE RECORDS SUMMARY | 2023-09-25 11:54 | XMS_ITS | Encounter Summary ---
Author Organization [facility] Address [address] [place] [address] Care Team Providers Care Director Of Anesthesia Services Name Role Phone Trinh Navarrete MD Primary Care Provider [phone] Encounter Details Date Type Department Care Team (Late st Contact Info) Description 09/12/2010 Results Only [facility] Laboratory Services - [facility] ([facility]) [address], [place] [id number] Carlos Trevino MD [address] [place] [address] Social History Tobacco Use Types Packs/Day Years [...] ? GUIDOSH, RUBEN ? Accession #: ? [id number] ? : ? 1965 (Age: 45) ??F ? Collect Date: ? 09/12/2010 ? Location: ? [facility] ? Receive Date: ? 09/12/2010 ? Provider: CARLOS TREVINO MD ? Copy to: TRINH NAVARRETE [...] ??No definitive nodules ?? are present. ??A career representative section of each tissue is submitted as (B1) and ?? (B2). (Kevyn Domínguez)/mpl ? End of Report ? [facility] 09/12/2010 09/12/2010 8:2 8 EDT Carlos Trevino MD PATHOLOGY ORDERABLE S [facility] [address] [place] [address] documented in this encounter Visit Diagnoses Not on filedocumented in this encounter Care Teams Director Of Anesthesia Services Relationship Specialty Start Date End Date Trinh Navarrete MD [address] [place] [phone] PCP - General 12/02/09 documented as of this encounter
--- OUTSIDE RECORDS SUMMARY | 2023-09-25 11:54 | XMS_ITS | Encounter Summary ---
Author Organization [facility] Address [address] [place] [address] Care Team Providers Care Material Handler Name Role Phone Trinh Navarrete MD Primary Care Provider [phone] Encounter Details Date Type Department Care Team (Late st Contact Info) Description 07/03/[address] [facility] Laboratory Services - [facility] ([facility]) [address] [place], [place] [phone] Trinh Navarrete MD [address] [address] Social History Tobacco Use Types [...] ? RUBEN ARRIAGA ? Accession #: ? [id number] ? : ? 1965 (Age: 46) ??F [...] types 16,18,31,33,35, 39,45,51,52,56,58, 59,66, and 68 by campaign management senior manager mediated amplification. Comments Document reviewed and electronically signed by: ? System Interface ? Report date: 07/11/2011 By the signature above, the attending physician certifies that he/she has personally conducted a gross and/or microscopic examination of the described specimens and rendered or confirmed the above diagnosis. End of Report [facility] 07/03/2011 07/04/2011 Trinh Navarrete MD PATHOLOGY ORDERABLES [facility] [address] [place] [address] documented in this encounter Visit Diagnoses Not on filedocumented in this encounter Care Teams Material Handler Relationship Specialty Start Date End Date Trinh Navarrete MD [address] [place] [phone] PCP - General 12/02/09 documented as of this encounter
--- OUTSIDE RECORDS SUMMARY | 2023-09-25 11:54 | XMS_ITS | Encounter Summary ---
Author Organization [facility] Address [facility] [place] [address] Care Team Providers Care Hair Boiler Name Role Phone Trinh Coates MD Primary Care Provider [phone] Encounter Details Date Type Department Care Team (Latest Contact Info) Description 10/18/2012 9:15 AM EDT - 10/18/2012 11:59 PM EDT Hospital Encounter XRay at [address] [place] [address] CLIN[address], DR BADILLO Discharge Disposition: Home Social [...] 10:30 AM EST Appointment Mammography/[place] [address] Ladi Mendosa MD [facility] [place] [address] 01/30/2024 11:30 AM EST Office Visit Dermatology at [facility] [address] [place] [phone] Nilda Luis MD [facility] [place] [address] 02/14/2024 7:30 AM EST [place]ment [place] [phone] Joanna Watts MD [facility] [place] [address] documented as of this encounter Visit Diagnoses Not on filedocumented in this encounter Care Teams Hair Boiler Relationship Specialty Start Date End Date Trinh Coates MD [facility] [address] [place] [address] PCP - General 01/11/10 documented as of this encounter
--- OUTSIDE RECORDS SUMMARY | 2023-09-25 11:54 | XMS_ITS | Encounter Summary ---
Author Organization [facility] Address [facility] [place] [address] Care Team Providers Care Director Regulatory Affairs Name Role Phone Trinh Coates MD Primary Care Provider [phone] Encounter Details Date Type Department Care Team (Late st Contact Info) Description 10/22/2012 [place] [phone] Usman Payne MD [facility] [place] [address] Abnormal mammogram, unspecified (Primary Dx) Social History [...] 01/22/2024 10:30 AM EST Appointment Mammography/[place] [phone] Ladi Mendosa MD [facility] [place] [address] 01/30/2024 11:30 AM EST Office Visit Dermatology at [facility] [address] [place] [phone] Nilda Luis MD [facility] [place] [address] 02/14/2024 7:30 AM EST [place] [phone] Joanna Watts MD [facility] [place] [place] [address] documented as of this encounter Results * [...] evaluated by CAD version 8.3.17. ?? COMPARISON: [facility] Right mammography 10/01, 05/30 and 01/27. ?? [...] exam was evaluatedby CAD version 8.3.17. COMPARISON: [facility] Right mammography 10/01, 05/30 and 01/27. FINDINGS: [...] unspecified documented in this encounter Care Teams Director Regulatory Affairs Relationship Specialty Start Date End Date Trinh Coates MD [address] [place] [address] [facility] [address] [place] [address] PCP - General 01/11/10 documented as of this encounter
--- OUTSIDE RECORDS SUMMARY | 2023-09-25 11:54 | XMS_ITS | Referral Summary ---
Author Organization [facility] Address [address] [place] [address] Care Team Providers Care Waiter/Waitress Take Out Name Role Phone Trinh Cotaes MD Primary Care Provider [phone] Social History Tobacco Use Types Packs/Day Years [...] C Antibody Negative Negative 02/01/2021 9:49 EST [facility] Blood VENOUS BLOOD / Unknown 01/31/2021 10:05 EST 01/31/2021 21:04 EST Provider Outr Resulting Lab CHEMISTRY & BLOOD GAS ORDERABLES [facility] [address] [place] [address] from Last 3 Months or Most Recently Relevant to Health Maintenance Care Teams Waiter/Waitress Take Out Relationship Specialty Start Date End Date Trinh Coates MD [address] [address] PCP - General 12/02/09
--- OUTSIDE RECORDS SUMMARY | 2023-09-25 11:54 | XMS_ITS | Encounter Summary ---
Author Organization [facility] Address [address] [place] [address] Care Team Providers Care Shoe Stamper Name Role Phone Unknown, Provider Primary Care Provider Encounter Details Date Type Department Care Team (Late st Contact Info) Description 2006 Results Only [facility] [address] [place] [address] Trinh Navarrete MD [address] [address] Social History Tobacco Use Types [...] ? RUBEN ARRIAGA ? Accession #: ? [id number] : ? 1965 (Age: 41) ??F ?Collect Date: ? 2006 Location: ? [facility] ? Receive Date: ? 06/28/2006 Provider: ?TRINH NAVARRETE MD Copy to: ? Specimen/Source: ?ThinPrep Pap Test, Cervix/Endocervix, processed on [employer] ThinPrep Imaging System, with manual evaluation Last [...] MD PATHOLOGY ORDERABLES [facility] [address] [place] [address] documented in this encounter Visit Diagnoses Not on filedocumented in this encounter Care Teams Shoe Stamper Relationship Specialty Start Date End Date Unknown, Provider, PCP - General 02/22/09 12/01/09 documented as of this encounter
--- OUTSIDE RECORDS SUMMARY | 2023-09-25 11:54 | XMS_ITS | Encounter Summary ---
Author Organization [facility] Address [address] [place] [address] Care Team Providers Care Audio Video Repairer Name Role Phone Karlos Navarrete MD Primary Care Provider [phone] Encounter Details Date Type Department Care Team (Late st Contact Info) Description 01/06/2013 Results Only [facility] [phone] Sony Camp MD [address] [place] [address] Social History Tobacco Use Types Packs/Day Years [...] ? RUBEN ARRIAGA ? Accession #: ? [id number] ? : ? 1965 (Age: 47) ??F [...] is extremely limited and may not be rental sales representative. ??Clinical correlation is recommended. ??Results were [...] and bx endometrial is an aggregate of caupto-brown tissue admixed with red-brown blood clot (3.5 x 2.5 x 0.7 cm). ??Submitted in toto in cassettes 1 and 2. Susana Casey 01/06/2013 04:01 PM End of Report [facility] 01/06/2013 15:3 8 EST 01/06/2013 15:38 EST Sony Camp MD PATHOLOGY ORDERABLES [facility] [address] [place] [address] * PAP TEST- RESULT ONLY (01/06/2013 0:00 EST) Pathology Report: CYTOPATHOLOGY REPORT Reports generated via electronic interface contain original data; however they are lacking the format of the original report. Caution should be taken when reading/interpreti ng unformatted reports. Name: ? RUBEN ARRIAGA ? Accession #: ? [id number] ? : ? 1965 (Age: 47) ??F [...] types 16,18,31,33,35, 39,45,51,52,56,58, 59,66, and 68 by animal caregiver mediated amplification. Comments Document reviewed and electronically signed by: ? System Interface ? Report date: 01/15/2013 By the signature above, the attending physician certifies that he/she has personally conducted a gross and/or microscopic examination of the described specimens and rendered or confirmed the above diagnosis. End of Report [facility] 01/06/2013 01/07/2013 Sony Camp MD PATHOLOGY ORDERABLES Performing Organization Address City/State/[facility] Co de Phone Number [facility] [address] [place] [address] documented in this encounter Visit Diagnoses Not on filedocumented in this encounter Care Teams Audio Video Repairer Relationship Specialty Start Date End Date Karlos Navarrete MD [address] [place] [phone] PCP - General 12/02/09 documented as of this encounter
--- OUTSIDE RECORDS SUMMARY | 2023-09-25 11:54 | XMS_ITS | Encounter Summary ---
Author Organization [facility] Address [address] [place] [address] Care Team Providers Care Medical Office Rep Name Role Phone Unknown, Provider Primary Care Provider Encounter Details Date Type Department Care Team (Late st Contact Info) Description 02/18/2009 Orders Only [facility] Laboratory Services - [facility] ([facility]) [address] [place], [place] [phone] Carlos Trevino MD [address] [place] [address] Social History Tobacco Use Types Packs/Day Years [...] ??performance ? characteristics have been determined by [facility]. ??This ? laboratory is certified under the [...] MD PATHOLOGY ORDERABLE S Performing Organization Address City/State/[facility] Co de Phone Number [facility] [address] [place] [address] documented in this encounter Visit Diagnoses Not on filedocumented in this encounter Care Teams Medical Office Rep Relationship Specialty Start Date End Date Unknown, Provider, PCP - General 02/22/09 12/01/09 documented as of this encounter
--- OUTSIDE RECORDS SUMMARY | 2023-09-25 11:54 | XMS_ITS | Encounter Summary ---
Author Organization [facility] Address [address] [place] [address] Care Team Providers Care Head Of Talent Management Name Role Phone Trinh Navarrete MD Primary Care Provider [phone] Encounter Details Date Type Department Care Team (Late st Contact Info) Description 03/07/2013 Results Only [facility] [phone] Becki Camp MD [address] [place] [address] Social History Tobacco Use Types Packs/Day Years [...] ? RUBEN ARRIAGA ? Accession #: ? [id number] ? : ? 1965 (Age: 47) ??F [...] while the opposite surface is slightly rough. Psychiatric Cns sections of the specimen are submitted as follows: BLOCK HORTA 1- ??full thickness section of bone, submitted for decalcification 2- ??two sections of separately received soft fibrous white piece of tissue Jarod Sabillon 03/10/2013 10:21 AM End of Report [facility] 03/07/2013 8:38 EST 03/07/2013 8:38 EST Rufino Kang MD PATHOLOGY ORDERABLE S [facility] [address] [place] [address] documented in this encounter Visit Diagnoses Not on filedocumented in this encounter Care Teams Head Of Talent Management Relationship Specialty Start Date End Date Trinh Navarrete MD [address] [place] [phone] PCP - General 12/02/09 documented as of this encounter
--- OUTSIDE RECORDS SUMMARY | 2023-09-25 11:54 | XMS_ITS | Encounter Summary ---
Author Organization [facility] Address [address] [place] [address] Care Team Providers Care Optician Name Role Phone Trinh Navarrete MD Primary Care Provider [phone] Encounter Details Date Type Department Care Team (Late st Contact Info) Description 01/26/2014 Results Only [facility] [phone] Cece Harrison MD [facility] [address] [place], [place] [phone] Social History Tobacco Use Types Packs/Day Years [...] ? RUBEN ARRIAGA ? Accession #: ? [id number] ? : ? 1965 (Age: 48) ??F [...] Edward 01/26/2014 07:52 PM End of Report [facility] 01/26/2014 15:2 6 EST 01/26/2014 15:26 EST Cece Harrison MD PATHOLOGY ORDERMonserrat ESQUIVEL [facility] [address] [place] [address] documented in this encounter Visit Diagnoses Not on filedocumented in this encounter Care Teams Optician Relationship Specialty Start Date End Date Trinh Navarrete MD [address] [place] [phone] PCP - General 12/02/09 documented as of this encounter
--- OUTSIDE RECORDS SUMMARY | 2023-09-25 11:54 | XMS_ITS | Encounter Summary ---
Author Organization [facility] Address [facility] [place] [address] Care Team Providers Care Client Support Administrator Name Role Phone Trinh Coates MD Primary Care Provider [phone] Encounter Details Date Type Department Care Team (Late st Contact Info) Description 10/18/2012 [place] [phone] Trinh Coates MD [facility] [address] [place] [address] Social History Tobacco Use Types [...] 01/22/2024 10:30 AM EST Appointment Mammography/[place] [phone] Ladi Mendosa MD [facility] [place] [address] 01/30/2024 11:30 AM EST Office Visit Dermatology at [facility] [address] [place] [phone] Nilda Luis MD [facility] [place] [address] 02/14/2024 7:30 AM EST Appointment Radiology at [facility] [place] [address] Joanna Watts MD [facility] [address] documented as of this encounter Procedures Procedure Name Priority Date/Time Associated Diagnosis Comments REQUEST FOR 2ND READ MAMMO Routine 10/18/2012 9:20 AM EDT documented in this encounter Results * Request for 2nd read Mammo (10/18/2012 9:20 AM EDT) Anatomical Region Laterality Modality Other 10/18/2012 9:20 AM EDT Narrative 10/23/2012 8:01 AM EDT INTERPRETATION OF OUTSIDE MAMMOGRAMS (PERFORMED ON 10/09/12 AND 10/02/12) FROM [facility] DATED 10/18/12: ?? DIAGNOSTIC IMAGING SUMMARY: ?? [...] focal asymmetry. ?? Size: 3cm. ?? Location: 1339-1777, 12cm radial distance from the nipple. ?? [...] ?? TECHNIQUE: Digital mammography is submitted from [facility] and includes a standard screening mammogram from [...] in the upper, outer quadrant at approximately 9538-6339, 11.5cm radial distance from the nipple. This [...] OUTSIDE MAMMOGRAMS (PERFORMED ON 10/09/12 AND 10/02/12)FROM [facility] DATED 10/18/12: DIAGNOSTIC IMAGING SUMMARY: RIGHT BREAST LESION 1: SUSPICIOUS (BIRADS Category 4B-intermediate concernfor malignancy). Finding: Clustered, amorphous and pleomorphic calcifications. Size: 6mm. Location: 1200, 8.5 - 9.0cm radial distance from the nipple. Recommendation: Stereotactic core needle biopsy. RIGHT BREAST LESION 2: ASSESSMENT IS INCOMPLETE: NEEDS ADDITIONALEVALUATION (BIRADS Category 0). Finding: Oval focal asymmetry. Size: 3cm. Location: 9740-1504, 12cm radial distance from the nipple. Recommendation: [...] calcifications. TECHNIQUE: Digital mammography is submitted from [facility] and includes astandard screening mammogram from 10/02/12, [...] in the upper, outer quadrant at approximately 0708-9040, 11.5cm radial distance from the nipple. This [...] on filedocumented in this encounter Care Teams Client Support Administrator Relationship Specialty Start Date End Date Trinh Coates MD [address] [place] [address] [address] [place] [address] PCP - General 01/11/10 documented as of this encounter
--- OUTSIDE RECORDS SUMMARY | 2023-09-25 11:54 | XMS_ITS | Encounter Summary ---
Author Organization [facility] Address [address] [place] [address] Care Team Providers Care Supervisor Bridges And Buildings Name Role Phone Trinh Coates MD Primary Care Provider [phone] Encounter Details Date Type Department Care Team (Late st Contact Info) Description 11/19/2020 Lab Requisition [facility] Pathology & Laboratory Medicine - [facility] [address] [place], [place] [address] Outr Resulting Lab, Provider Social History Tobacco [...] Outr Resulting Lab MICROBIOLOGY - GENERAL ORDERABLES [facility] [address] [place] [address] * COVID-19 TESTING (11/19/2020 9:47 EDT) COVID-19 rt-PCR Result Negative Negative 11/20/2020 12:05 EDT [facility] Comment: This test has not [...] history, and epidemiological information. Performed on the Book&Table Fusion instrument Performing Lab [place] [facility] Lab 11/20/2020 12:05 EDT [facility] Swab 11/19/2020 9:47 EDT 11/19/2020 22:19 EDT Provider Outr Resulting Lab MICROBIOLOGY - GENERAL ORDERABLES [facility] [address] [place] [address] documented in this encounter Visit Diagnoses Not on filedocumented in this encounter Care Teams Supervisor Bridges And Buildings Relationship Specialty Start Date End Date Trinh Coates MD [address] [place] [phone] PCP - General 12/02/09 documented as of this encounter
--- OUTSIDE RECORDS SUMMARY | 2023-09-25 11:54 | XMS_ITS | Encounter Summary ---
Author Organization [facility] Address [address] [place] [address] Care Team Providers Care Motion Picture Cameraman Name Role Phone Unknown, Provider Primary Care Provider [phone] Encounter Details Date Type Department Care Team (Late st Contact Info) Description 11/23/2000 Results Only [facility] [address] [place] [address] Trinh Navarrete MD [address] [phone] Social History Tobacco Use Types [...] ? RUBEN ARRIAGA ? Accession #: ? [id number] : ? 1965 (Age: 35) ??F ?Collect [...] Navarrete MD PATHOLOGY ORDERABLES [facility] [address] [place] [address] documented in this encounter Visit Diagnoses Not on filedocumented in this encounter Care Teams Motion Picture Cameraman Relationship Specialty Start Date End Date Unknown, Provider, PCP - General 02/22/09 12/01/09 documented as of this encounter
--- OUTSIDE RECORDS SUMMARY | 2023-09-25 11:54 | XMS_ITS | Encounter Summary ---
Author Organization [facility] Address [address] [place] [address] Care Team Providers Care Maintenance And Custodian Supervisor Name Role Phone Trinh Navarrete MD Primary Care Provider [phone] Encounter Details Date Type Department Care Team (Late st Contact Info) Description 06/12/2018 Results Only [facility] [phone] Franco Mota MD [facility] [facility] [place] [address] Social History Tobacco Use Types [...] ? RUBEN ARRIAGA ? Accession #: ? [id number] ? : ? 1965 (Age: 52) ??F [...] types 16,18,31,33,35, 39,45,51,52,56,58, 59,66, and 68 by president and cmo mediated amplification. Comments Document reviewed and electronically signed by: ? System Interface ? Report date: 06/19/2018 By the signature above, the attending physician certifies that he/she has personally conducted a gross and/or microscopic examination of the described specimens and rendered or confirmed the above diagnosis. End of Report [facility] 06/12/2018 06/14/2018 Trinh Navarrete MD PATHOLOGY ORDERABLES [facility] [address] [place] [address] documented in this encounter Visit Diagnoses Not on filedocumented in this encounter Care Teams Maintenance And Custodian Supervisor Relationship Specialty Start Date End Date Trinh Navarrete MD [address] [place] [phone] PCP - General 12/02/09 documented as of this encounter
--- OUTSIDE RECORDS SUMMARY | 2023-09-25 11:54 | XMS_ITS | Encounter Summary ---
Author Organization [facility] Address [address] [place] [address] Care Team Providers Care Cma Or Lpn Name Role Phone Unknown, Provider Primary Care Provider Encounter Details Date Type Department Care Team (Late st Contact Info) Description 11/29/2009 Results Only [facility] Services - [facility] [address] [place] [phone] Carlos Trevino MD [address] [place] [address] Social History Tobacco Use Types Packs/Day Years [...] ? GUIDOSH, RUBEN ? Accession #: ? [id number] ? : ? 1965 (Age: 44) ??F [...] ? - Interlobular fibrosis. ? Comment: ? Securities Analyst sections were reviewed by Dr. Terry Wilson [...] Gross Description: ? Received in formalin labelled Juanomreno, Ruben and R breast mass is a [...] PATHOLOGY ORDERABLE [facility] [address] [place] [address] documented in this encounter Visit Diagnoses Not on filedocumented in this encounter Care Teams Cma Or Lpn Relationship Specialty Start Date End Date Unknown, Provider, PCP - General 02/22/09 12/01/09 documented as of this encounter
--- OUTSIDE RECORDS SUMMARY | 2023-09-25 11:54 | XMS_ITS | Encounter Summary ---
Author Organization [facility] Address [address] [place] [address] Care Team Providers Care Enamel Pulverizer Name Role Phone Trinh Coates MD Primary Care Provider [phone] Encounter Details Date Type Department Care Team (Late st Contact Info) Description 12/09/2019 Lab Requisition [facility] Pathology & Laboratory Medicine - [facility] [address] [place], [place] [address] Outr Resulting Lab, Provider Social History Tobacco [...] rt-PCR Result NEGATIVE Negative 12/10/2019 23:09 EDT [facility] Comment: 2019-novel Coronavirus (2019-nCoV) not [...] in accordance with CLIA regulations, College [employer] [place] [employer] (CAP) guidelines (May 08, 2019), and FDA guidance (Apr 19, 2019). This test is only for use under the Food and Drug Administration's Emergency Use Authorization. Swab ENTIRE NASOPHARYNX / Unknown 12/09/2019 9:58 EDT 12/09/2019 17:18 EDT Provider Outr Resulting Lab MICROBIOLOGY - GENERAL ORDERABLES [facility] [place], [place] * COVID-19 TESTING (12/09/2019 9:58 EDT) COVID-19 rt-PCR Result NEGATIVE Negative 12/11/2019 2:03 EDT [facility] Comment: 2019-novel Coronavirus (2019-nCoV) not detected [...] in accordance with CLIA regulations, College of [place] [employer] (CAP) guidelines (May 08, 2019), and FDA guidance (Apr 19, 2019). This test is only for use under the Food and Drug Administration's Emergency Use Authorization. Performing Lab [facility] 12/11/2019 2:03 EDT [facility] Swab 12/09/2019 9:58 EDT 12/09/2019 17:18 EDT Provider Outr Resulting Lab MICROBIOLOGY - GENERAL ORDERABLES [facility] [address] [place] [address] [facility] [place], [place] documented in this encounter Visit Diagnoses Not on filedocumented in this encounter Care Teams Enamel Pulverizer Relationship Specialty Start Date End Date Trinh Coates MD [address] [place] [phone] PCP - General 12/02/09 documented as of this encounter
--- OUTSIDE RECORDS SUMMARY | 2023-09-25 11:54 | XMS_ITS | Clinical Summary ---
Author Organization [facility] Address [address] [place] [address] Care Team Providers Care Finance Controller Name Role Phone Trinh Coates MD Primary Care Provider [phone] Social History Tobacco Use Types Packs/Day Years [...] C Antibody Negative Negative 02/01/2021 9:49 EST [facility] Blood VENOUS BLOOD / Unknown 01/31/2021 10:05 EST 01/31/2021 21:04 EST Provider Outr Resulting Lab CHEMISTRY & BLOOD GAS ORDERABLES [facility] [address] [place] [address] from Last 3 Months or Most Recently Relevant to Health Maintenance Care Teams Finance Controller Relationship Specialty Start Date End Date Trinh Coates MD [address] [place] [phone] [facility] - General 12/02/09
--- OUTSIDE RECORDS SUMMARY | 2023-09-25 11:54 | XMS_ITS | Encounter Summary ---
Author Organization [facility] Address [address] [place] [address] Care Team Providers Care Chief Crew Scheduler Name Role Phone Karlos Navarrete MD Primary Care Provider [phone] Encounter Details Date Type Department Care Team (Late st Contact Info) Description 12/11/2013 Results Only [facility] [phone] Sony Camp MD [address] [place] [address] Social History Tobacco Use Types Packs/Day Years [...] ? RUBEN ARRIAGA ? Accession #: ? [id number] ? : ? 1965 (Age: 48) ??F [...] the epidermal hyperplasia) make psoriasis unlikely. ??(Dr. Haro)/[facility] Microscopic Description: Sections consist of a punch biopsy of skin to the deep reticular dermis. ??The stratum corneum is slightly thickened by compact orthokeratin. ??The epidermis is hyperplastic with an irregular rete ridge pattern of thickened and elongate ridges. ??The keratinocytes show java tech maturation with mild reactive changes. The granular [...] on sections prepared with PAS-amylase stain. ??(Dr. Haro)/[facility] Document reviewed and electronically signed by: [...] MD PATHOLOGY ORDERABLES [facility] [address] [place] [address] documented in this encounter Visit Diagnoses Not on filedocumented in this encounter Care Teams Chief Crew Scheduler Relationship Specialty Start Date End Date Karlos Navarrete MD [address] [place] [phone] PCP - General 12/02/09 documented as of this encounter
--- OUTSIDE RECORDS SUMMARY | 2023-09-25 11:54 | XMS_ITS | Encounter Summary ---
Author Organization [facility] Address [address] [place] [address] Care Team Providers Care Industry Analyst Name Role Phone Trinh Coates MD Primary Care Provider [phone] Reason for Visit * (Routine) - Receiving Office to Obtain Authorization Specialty Diagnoses / Procedures Referred By Diamante marin Referred To Contact Procedures CT OUTSIDE IMAGES NEURO Unknown, Provider, Referral ID Status Reason Start Date Expiration Date Visits Requested Visits Authorized [id number] Receiving Office to Obtain Authorization 9 1 1 Encounter Details Date Type Department Care Team (Late st Contact Info) Description 01/06/2019 - 01/06/2019 23:59 EST Hospital Encounter [facility] [address] [place] [address] Social History Tobacco Use Types Packs/Day Years [...] on filedocumented in this encounter Care Teams Industry Analyst Relationship Specialty Start Date End Date Trinh Coates MD [address] [place] [phone] PCP - General 12/02/09 documented as of this encounter
--- OUTSIDE RECORDS SUMMARY | 2023-09-25 11:54 | XMS_ITS | Encounter Summary ---
Author Organization [facility] Address [facility] [place] [address] Care Team Providers Care Imaging Services Director Name Role Phone Trinh Coates MD Primary Care Provider Encounter Details Date Type Department Care Team (Late st Contact Info) Description 05/20/2010 [place] [phone] Ira Emmanuel MD [facility] [place] [address] Social History Tobacco Use Types Packs/Day Years Used Date Smoking Tobacco: Never Assessed Sex and Gender Information Value Date Recorded Sex Assigned at Not on file Gender Identity Not on file Sexual Orientation Not on file documented as of this encounter Plan of Treatment Upcoming Encounters Date Type Department Care Team (Late st Contact Info) Description 01/22/2024 10:30 AM EST Appointment Mammography/[place] [phone] Ladi Mendosa MD [facility] [place] [address] 01/30/2024 11:30 AM EST Office Visit Dermatology at [facility] [address] [place] [address] Nilda Luis MD [facility] [place] [address] 02/14/2024 7:30 AM EST Appointment Radiology at [facility] [place] [phone] Joanna Watts MD [facility] [place] [address] documented as of this encounter Procedures Procedure [...] Emmanuel MD IMG FILM LIBR [place] ORDERABLES [facility] [address] [place] [address] documented in this encounter Visit Diagnoses Not on filedocumented in this encounter Care Teams Imaging Services Director Relationship Specialty Start Date End Date Trinh Coates MD [address] [place] [address] PCP - General 01/11/10 documented as of this encounter
--- OUTSIDE RECORDS SUMMARY | 2023-09-25 11:54 | XMS_ITS | Encounter Summary ---
Author Organization [facility] Address [address] [place] [address] Care Team Providers Care Credit Control Officer Name Role Phone Trinh Coates MD Primary Care Provider [phone] Encounter Details Date Type Department Care Team (Latest Contact Info) Description 01/26/2014 17:04 EST - 01/26/2014 23:59 [facility] Hospital Encounter [address] [address] Unknown, Provider, Discharge Disposition: Home or Self Care Social History Tobacco Use Types Packs/Day Years Used Date Smoking Tobacco: Never Assessed Sex and Gender Information Value Date Recorded Sex Assigned at Not on file Gender Identity Not on file Sexual Orientation Not on file documented as of this encounter Discharge Disposition Disposition Code Departure Means Destination Home or Self Alf documented in this encounter Plan of Treatment Not on file documented as of this encounter Visit Diagnoses Not on filedocumented in this encounter Care Teams Credit Control Officer Relationship Specialty Start Date End Date Trinh Coates MD [address] [place] [phone] PCP - General 12/02/09 documented as of this encounter
--- OUTSIDE RECORDS SUMMARY | 2023-09-25 11:54 | XMS_ITS ---
[place] [address] Care Team Providers Care Belt Operator Name Role Phone Trinh Coates MD Primary Care Provider [phone] Dermatology Status:Ineligible (Enrolling) Start date:07/13/2023 Enrollment reason:Ineligible - Insurance Mandate Linked medications:ustekinumab (Active) Linked problems:Psoriasis (Active) Continued Care and Services Coordination
--- OUTSIDE RECORDS SUMMARY | 2023-09-25 11:54 | XMS_ITS | Encounter Summary ---
Author Organization [facility] Address [address] [place] [address] Care Team Providers Care City Planner Name Role Phone Trinh Coates MD Primary Care Provider [phone] Encounter Details Date Type Department Care Team (Late st Contact Info) Description 08/01/2021 Lab Requisition [facility] Pathology & Laboratory Medicine - [facility] [address] [place], [place] [address] Outr Resulting Lab, Provider Social History Tobacco [...] 19 - 88 pg/mL 08/02/2021 9:16 EDT [facility] Blood VENOUS BLOOD / Unknown 08/01/2021 11:11 EDT 08/01/2021 21:38 EDT Provider Outr Resulting Lab CHEMISTRY & BLOOD GAS ORDERABLES [facility] [address] [place] [address] documented in this encounter Visit Diagnoses Not on filedocumented in this encounter Care Teams City Planner Relationship Specialty Start Date End Date Trinh Coates MD [address] [place] [phone] PCP - General 12/02/09 documented as of this encounter
--- OUTSIDE RECORDS SUMMARY | 2023-09-25 11:54 | XMS_ITS | Encounter Summary ---
Author Organization [facility] Address [address] [place] [address] Care Team Providers Care Records And Information Manager Name Role Phone Trinh Coates MD Primary Care Provider [phone] Encounter Details Date Type Department Care Team (Latest Contact Info) Description 12/11/2013 11:56 EDT - 12/11/2013 23:59 EDT Hospital Encounter [address] [address] Unknown, Provider, Discharge Disposition: Home or Self Care Social History Tobacco Use Types Packs/Day Years Used Date Smoking Tobacco: Never Assessed Sex and Gender Information Value Date Recorded Sex Assigned at Not on file Gender Identity Not on file Sexual Orientation Not on file documented as of this encounter Discharge Disposition Disposition Code Departure Means Destination Home or Self Snf documented in this encounter Plan of Treatment Not on file documented as of this encounter Visit Diagnoses Not on filedocumented in this encounter Care Teams Records And Information Manager Relationship Specialty Start Date End Date Trinh Coates MD [address] [place] [phone] PCP - General 12/02/09 documented as of this encounter
--- OUTSIDE RECORDS SUMMARY | 2023-09-25 11:54 | XMS_ITS | Encounter Summary ---
Author Organization [facility]ly [facility], [facility] Address [facility] [place] [address] Care Team Providers Care Iron Handler Name Role Phone Trinh Coates MD Primary Care Provider [phone] Encounter Details Date Type Department Care Team (Late st Contact Info) Description 10/30/2012 [place] [phone] Usman Payne MD [facility] [place] [address] Abnormal findings on diagnostic imaging of breast [...] AM EST Appointment Mammography/[place] [phone] Ladi Mendosa MD [facility] HEMATOLOGY AND ONCOLOGY [place], [place] [id number] 01/30/2024 11:30 AM EST Office Visit Dermatology at [facility] [address] [place] [phone] Nilda Luis MD [facility] [place] [address] 02/14/2024 7:30 AM [place] [phone] Joanna Watts MD [facility] [place] [address] documented as of this encounter Results * Mammo specimen (11/07/2012 11:03 AM EDT) Anatomical Region Laterality Modality Breast N/A Mammography 11/07/2012 11:0 3 AM EDT Impressions 11/11/2012 12:34 PM EDT Impression: concordant Recommendation: Follow up mammogram with magnification views in 6 months. Results discussed with Ms. Sandoval on 11/09/12. ?? I performed the procedure without a resident. Home phone: [phone] Work phone: [phone] Narrative 11/11/2012 12:34 PM EDT VACUUM ASSISTED [...] are present on specimen digital X-ray. A [employer]-Stereo 13 Cylinder marker clip was placed. Cranio-caudal [...] calcifications are present on specimendigital X-ray. A [employer] Eviva-Stereo 13 Cylinder marker clip was placed. [...] the procedure without a resident. Home phone: [phone] Work phone: [phone] Usman Payne MD IMG MAMMO ORDERABLES * Mammo stereotactic (11/07/2012 11:03 AM EDT) Anatomical Region Laterality Modality Breast N/A Mammography 11/07/2012 11:0 3 AM EDT Impressions 11/11/2012 12:34 PM EDT Impression: concordant Recommendation: Follow up mammogram with magnification views in 6 months. Results discussed with Ms. Sandoval on 11/09/12. ?? I performed the procedure without a resident. Home phone: [phone] Work phone: [phone] Narrative 11/11/2012 12:34 PM EDT VACUUM ASSISTED [...] are present on specimen digital X-ray. A [employer] Eviva-Stereo 13 Cylinder marker clip was placed. [...] the procedure without a resident. Home phone: [phone] Work phone: [phone] Usman Payne MD IMG MAMMO ORDERABLES * Mammo direct digital unilateral (11/07/2012 11:01 AM EDT) Anatomical Region Laterality Modality Breast N/A Mammography 11/07/2012 11:0 1 AM EDT Impressions 11/11/2012 12:34 PM EDT Impression: concordant Recommendation: Follow up mammogram with magnification views in 6 months. Results discussed with Ms. Sandoval on 11/09/12. ?? I performed the procedure without a resident. Home phone: [phone] Work phone: [phone] Narrative 11/11/2012 12:34 PM EDT VACUUM ASSISTED [...] the procedure without a resident. Home phone: [phone] Work phone: [phone] Usman Payne MD IMG MAMMO ORDERABLES documented [...] breast documented in this encounter Care Teams Iron Handler Relationship Specialty Start Date End Date Trinh Coates MD [address] [place] [address] PCP - General 01/11/10 documented as of this encounter
--- OUTSIDE RECORDS SUMMARY | 2023-09-25 11:54 | XMS_ITS | Encounter Summary ---
Author Organization [facility] Address [address] [place] [address] Care Team Providers Care Ob/Gyn Name Role Phone Trinh Coates MD Primary Care Provider [phone] Encounter Details Date Type Department Care Team (Late st Contact Info) Description 03/14/2021 Lab Requisition [facility] Pathology & Laboratory Medicine - [facility] [address] [place] [address] Franco Mota MD [address] [place] [address] [address] [place], [place] [id number] Personal history of colonic polyps; Encounter for [...] explore management options, if applicable. 03/15/2021 16:09 [facility] Final Diagnosis A. [...] POLYP, BIOPSY: - Tubular adenoma. 03/15/2021 16:09 [facility] Attestation By the signature below, the attending physician certifies that they have 1) personally conducted a gross and/or microscopic examination of the described specimen(s), and/or personally interpreted the results of laboratory testing of the described specimen(s), and 2) personally rendered or confirmed the above diagnosis. 03/15/2021 16:09 [facility] at 1609 Clinical History Colon cancer screening; history of polyps; family history of colorectal cancer 03/15/2021 16:09 [facility] Gross Description A. [...] STEVAN KOROMA(ASCP) 03/14/2021 16:46 03/15/2021 16:09 EST [facility] Performing Lab [facility] 03/15/2021 16:09 EST [facility] Scanned Images 03/15/2021 16:09 EST [facility] Tissue POLYP OF COLON / Unknown 03/14/2021 10:21 EST 03/14/2021 16:23 EST Tissue specimen (specimen) POLYP OF COLON / Unknown 03/14/2021 10:21 EST 03/14/2021 16:23 EST Tissue specimen (specimen) POLYP OF COLON / Unknown 03/14/2021 10:21 EST 03/14/2021 16:23 EST Tissue specimen (specimen) POLYP OF COLON / Unknown 03/14/2021 10:21 EST 03/14/2021 16:23 EST Franco Mota MD PATHOLOGY ORDERA SI[place] [facility] [address] [place] [address] documented in this encounter Visit Diagnoses Diagnosis Personal history of colonic polyps Encounter for screening for malignant neoplasm of colon Special screening for malignant neoplasms, colon documented in this encounter Care Teams Ob/Gyn Relationship Specialty Start Date End Date Trinh Coates MD [address] [place] [phone] PCP - General 12/02/09 documented as of this encounter
--- OUTSIDE RECORDS SUMMARY | 2023-09-25 11:54 | XMS_ITS | Encounter Summary ---
Author Organization [facility] Address [address] [place] [address] Care Team Providers Care Car Sander Name Role Phone Trinh Coates MD Primary Care Provider [phone] Encounter Details Date Type Department Care Team (Late st Contact Info) Description 01/31/2021 Lab Requisition [facility] Pathology & Laboratory Medicine - [facility] [address], [place] [phone] Outr Resulting Lab, Provider Social History Tobacco [...] C Antibody Negative Negative 02/01/2021 9:49 EST [facility] Blood VENOUS BLOOD / Unknown 01/31/2021 10:05 EST 01/31/2021 21:04 EST Provider Outr Resulting Lab CHEMISTRY & BLOOD GAS ORDERABLES [facility] [address] [place] [address] documented in this encounter Visit Diagnoses Not on filedocumented in this encounter Care Teams Car Sander Relationship Specialty Start Date End Date Tirnh Coates MD [address] [place] [phone] PCP - General 12/02/09 documented as of this encounter
--- OUTSIDE RECORDS SUMMARY | 2023-09-25 11:54 | XMS_ITS | Encounter Summary ---
Author Organization [facility] Address [address] [place] [address] Care Team Providers Care Cotton Feeder Name Role Phone Trinh Coates MD Primary Care Provider [phone] Encounter Details Date Type Department Care Team (Late st Contact Info) Description 01/29/2020 Lab Requisition [facility] Pathology & Laboratory Medicine - [facility] [address] [place], [place] [phone] Outr Resulting Lab, Provider Social History Tobacco [...] 6.3 - 8.2 g/dL 01/30/2020 12:32 EST [facility] Albumin % 58.6 55.8 - 66.1 % 01/30/2020 12:32 EST [facility] Alpha-1 % 4.9 2.9 - 4.9 % 01/30/2020 12:32 EST [facility] Alpha-2 % 12.2(H) 7.1 - 11.8 % 01/30/2020 12:32 EST [facility] Beta % 12.0 8.4 - 13.1 % 01/30/2020 12:32 EST [facility] Gamma % 12.3 11.1 - 18.8 % 01/30/2020 12:32 EST [facility] SPEP Comment No apparent monoclonal protein seen on serum electrophoresis 01/30/2020 12:32 EST [facility] Comment:See scanned/suppleme ntary report. Blood VENOUS BLOOD / Unknown 01/29/2020 10:21 EST 01/29/2020 16:23 EST Provider Outr Resulting Lab CHEMISTRY & BLOOD GAS ORDERABLES [facility] [address] [place] [address] documented in this encounter Visit Diagnoses Not on filedocumented in this encounter Care Teams Cotton Feeder Relationship Specialty Start Date End Date Trinh Coates MD [address] [place] [phone] PCP - General 12/02/09 documented as of this encounter
--- OUTSIDE RECORDS SUMMARY | 2023-09-25 11:54 | XMS_ITS | Encounter Summary ---
Author Organization [facility] Address [address] [place] [address] Care Team Providers Care Cylinder Sander Operator Name Role Phone Trinh Coates MD Primary Care Provider [phone] Encounter Details Date Type Department Care Team (Late st Contact Info) Description 08/01/2021 Lab Requisition [facility] Pathology & Laboratory Medicine - [facility] [address] [place], [place] [phone] Outr Resulting Lab, Provider Social History Tobacco [...] 4th Generation Negative Negative 08/02/2021 10:04 EDT [facility] Comment:If acute HIV-1 infec tion is suspected in a high risk patient, submit plasma specimen for HIV-1 RNA quantitation test. Blood VENOUS BLOOD / Unknown 08/01/2021 11:11 EDT 08/01/2021 21:40 EDT Narrative [facility] - 08/02/2021 10:04 EDT Fourth Generation assay performed on the Siemens Centaur XPT. Provider Outr Resulting Lab IMMUNOLOGY A ND SEROLOGY ORDERABLES [facility] [address] [place] [address] documented in this encounter Visit Diagnoses Not on filedocumented in this encounter Care Teams Cylinder Sander Operator Relationship Specialty Start Date End Date Trinh Coates MD [address] [place] [phone] PCP - General 12/02/09 documented as of this encounter
--- OUTSIDE RECORDS SUMMARY | 2023-09-25 11:54 | XMS_ITS | Encounter Summary ---
Author Organization [facility] [place] [address] Care Team Providers Care Copyright Manager Name Role Phone Trinh Coates MD Primary Care Provider [phone] Encounter Details Date Type Department Care Team (Latest Contact Info) Description 10/30/2012 1:59 PM EDT - 10/30/2012 11:59 PM EDT Hospital [place] [address] CLINIC, Trinh Medina MD [facility] [address] [place] [address] Abnormal mammogram, unspecified Discharge Disposition: [...] 01/22/2024 10:30 AM EST Appointment Mammography/[place] [address] Ladi Mendosa MD [facility] HEMATOLOGY [place] [address] 01/30/2024 11:30 AM EST Office Visit Dermatology at [facility] [address] [place] [phone] Nilda Luis MD [facility] [place] [address] 02/14/2024 7:30 AM EST [place] [address] Joanna Watts MD [facility] [place] [address] documented as of this encounter Procedures Procedure [...] evaluated by CAD version 8.3.17. ?? COMPARISON: [facility] Right mammography 10/01, 05/30 and 01/27. [...] exam was evaluatedby CAD version 8.3.17. COMPARISON: [facility] Right mammography 10/01, 05/30 and 01/27. [...] unspecified documented in this encounter Care Teams Copyright Manager Relationship Specialty Start Date End Date Trinh Coates MD [address] [place] [address] [address] [place] [address] PCP - General 01/11/10 documented as of this encounter
--- OUTSIDE RECORDS SUMMARY | 2023-09-25 11:54 | XMS_ITS | Encounter Summary ---
Author Organization [facility] Address [address] [place] [address] Care Team Providers Care Medicare Compliance Auditor Name Role Phone Unknown, Provider Primary Care Provider Encounter Details Date Type Department Care Team (Late st Contact Info) Description 04/23/2002 Results Only [facility] [address] [place] [address] Trinh Navarrete MD [address] [phone] Social History Tobacco Use Types [...] ? RUBEN ARRIAGA ? Accession #: ? [id number] : ? 1965 (Age: 36) ??F ?Collect [...] Navarrete MD PATHOLOGY ORDERABLES Performing Organization Address City/State/[facility] Co de Phone Number [facility] [address] [place] [address] documented in this encounter Visit Diagnoses Not on filedocumented in this encounter Care Teams Medicare Compliance Auditor Relationship Specialty Start Date End Date Unknown, Provider, PCP - General 02/22/09 12/01/09 documented as of this encounter
--- OUTSIDE RECORDS SUMMARY | 2023-09-25 11:54 | XMS_ITS | Encounter Summary ---
Author Organization [facility] Address [address] [place] [address] Care Team Providers Care Pattern Developer Name Role Phone Unavailable Primary Care Provider Unavailabl e Encounter Details Date Type Department Care Team (Late st Contact Info) Description 12/25/2008 Orders Only [facility] Services - [facility] [address] [place], [place] [address] Trinh Navarrete MD [address] [facility] [address] [place] [phone] Social History Tobacco Use Types Packs/Day [...] ? RUBEN ARRIAGA ? Accession #: ? [id number] ? : ? 1965 (Age: 43) ??F [...] MD PATHOLOGY ORDERABLES [facility] [address] [place] [address] documented in this encounter Visit Diagnoses Not on filedocumented in this encounter
--- OUTSIDE RECORDS SUMMARY | 2023-09-25 11:54 | XMS_ITS | Encounter Summary ---
Author Organization [facility] Address [address] [place] [address] Care Team Providers Care Noc Engineer Name Role Phone Trinh Coates MD Primary Care Provider [phone] Encounter Details Date Type Department Care Team (Latest Contact Info) Description 01/06/2013 10:23 EST - 01/06/2013 23:59 EST Hospital Encounter [address] [address] Unknown, Provider, Discharge Disposition: Home or Self Care Social History Tobacco Use Types Packs/Day Years Used Date Smoking Tobacco: Never Assessed Sex and Gender Information Value Date Recorded Sex Assigned at Not on file Gender Identity Not on file Sexual Orientation Not on file documented as of this encounter Discharge Disposition Disposition Code Departure Means Destination Home or Self Detention documented in this encounter Plan of Treatment Not on file documented as of this encounter Visit Diagnoses Not on filedocumented in this encounter Care Teams Noc Engineer Relationship Specialty Start Date End Date Trinh Coates MD [address] [place] [phone] PCP - General 12/02/09 documented as of this encounter
== END 2023-09-25 12:09 | disposition home or self-care (01) ==
LOC: SUR 11:37
PROVIDERS: PCP Family Medicine; Visit Provider Surgery
PROC: (CPT 46260; principal; 2023-09-25 07:30)
PROC: (CPT 46260; 2023-09-25 07:30)
DX: K64.8 Other hemorrhoids (principal); K64.4 Residual hemorrhoidal skin tags
CPT/HCPCS: 46260; 76942; 88304; C9290; J1100; J1885; J2405; J2704

== ENCOUNTER 2023-12-04 15:26 | Outpatient (CLI) | payer OTHER, SELFPAY ==
--- NOTE | 2023-12-04 14:00 | DI.RAD_ITS ---
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 TECHNIQUE: 2D digital imaging was performed. COMPARISON: CR XR KNEE LT 2V AP,LAT from 09/04/2023 FINDINGS: 3 views No evidence of acute fracture. Small amount of increased joint fluid is noted. There are mild-moderate degenerative changes in the medial compartment. No significant narrowing of the lateral compartment. Mild degenerative changes noted in the lateral aspect of the patellofemoral compartment. No patellar displacement evident. Bone density normal. No osseous lesions. IMPRESSION: Some degenerative changes described above. Small amount of increased joint fluid. DATA REPOSITORY: RADIATION DOSE DELIVERED:
== END 2023-12-04 15:27 | disposition home or self-care (01) ==
LOC: DIORS 15:26
PROVIDERS: PCP Family Medicine; Visit Provider Student in an Organized Health Care Education/Training Program
DX: M25.561 Pain in right knee (principal)
CPT/HCPCS: 73562

== ENCOUNTER 2023-12-07 16:17 | Outpatient (REF) | payer OTHER, SELFPAY ==
[2023-12-07 19:07] LABS: BUN 35 mg/dL (7-18); CREATININE 2.1 mg/dL (0.55-1.02); Calcium 9.4 mg/dL (8.5-10.1); Chloride 106 mmol/L (98-107); Estimated GFR 26.48 (mL/min/1.73m2); Glucose 82 mg/dL (74-106); Magnesium 2.1 mg/dL (1.8-2.4); Potassium 4.1 mmol/L (3.5-5.1); Sodium 144 mmol/L (136-145)
[2023-12-07 19:35] LABS: Hemoglobin A1C 5.6 % (<5.7)
== END 2023-12-07 16:18 | disposition home or self-care (01) ==
LOC: NCHCN 16:17
PROVIDERS: PCP Family Medicine; Visit Provider Family Medicine
DX: N18.32 Chronic kidney disease, stage 3b (principal); R73.03 Prediabetes
CPT/HCPCS: 80048; 83036; 83735

== ENCOUNTER 2023-12-25 01:16 | Outpatient (CLI) | payer OTHER, SELFPAY ==
--- NOTE | 2023-12-25 07:45 | DI.MRI_ITS ---
Exam(s) MR LOWER JOINT RT WO EXAM: MR LOWER JOINT RT WO CLINICAL HISTORY: ? MMT,ACUTE MEDIAL MENISCUS TEAR RT KNEE,[id number]. TECHNIQUE: Multiplanar multisequence MRI was performed. COMPARISON: CR XR KNEE RT 3V AP,LAT,ANNEL from 12/04/2023 FINDINGS: BONES: There is no fracture or contusion pattern. Mild spurring at the medial femoral condyle and m edial tibial plateau as well as lateral margin of the patella. JOINTS: A small joint effusion is present. Articular cartilage: Patellofemoral joint: Articular cartilage shows mild thinning. No focal defects or irregularity.. Medial femoral tibial joint: Thinning of the cartilage at the posterior aspect of the medial femoral condyle with adjacent degenerative signal changes in the bone. Lateral femoral tibial joint: Articular cartilage is unremarkable. LIGAMENTS/TENDONS: Anterior Cruciate: Unremarkable. Posterior Cruciate: Unremarkable. Medial Collateral:Edema around medial collateral ligament without visible tear. Lateral Collateral ligament complex: The IT band hamstring tendons are unremarkable. There is mild thickening but no edema at the femoral attachment of the lateral collateral ligament. Extensor mechanism: Small enthesophyte at quadriceps insertion. No abnormal high signal in the quadr iceps tendon. Medial retinaculum: Unremarkable. Lateral retinaculum: Unremarkable. Popliteus: Unremarkable. MENISCI: The medial meniscus is mildly peripherally displaced, consistent with degenerative changes. There is blunting of the apex of the posterior horn but no focal visible tear. The lateral meniscus is unremarkable. MUSCLES: Unremarkable. SOFT TISSUES: Edema in the subcutaneous fat. Edema seen medial to the medial head of gastrocnemius m uscle which could represent a ruptured Christensen's cyst. IMPRESSION: Edema around the medial collateral ligament without visible tear. Soft tissue edema. Small joint effusion. Blunting of the apex of the posterior horn of the medial meniscus without discrete visible tear. Deg enerative changes of the medial femoral tibial joint and medial meniscus. DATA REPOSITORY:
== END 2023-12-25 01:36 ==
LOC: DI 01:16
PROVIDERS: PCP Family Medicine; Visit Provider Student in an Organized Health Care Education/Training Program
DX: M25.561 Pain in right knee (principal); R22.41 Localized swelling, mass and lump, right lower limb
CPT/HCPCS: 73721

== ENCOUNTER 2024-02-08 00:18 | Outpatient (CLI) | payer OTHER, SELFPAY ==
--- NOTE | 2024-02-08 06:45 | DI.RAD_ITS ---
Exam(s) XR TOE LT GREAT EXAM: XR TOE LT GREAT CLINICAL HISTORY: comparison,pain lt foot,m79.672. TECHNIQUE: 2D digital imaging was performed. Three images were obtained. COMPARISON: No exams were available for comparison FINDINGS: BONES: No acute fracture is present. No bony destructive lesion is seen. JOINTS: No dislocation present. Moderate degenerative changes are seen at the 1st MTP joint with pablo nt space narrowing and osteophytes present. The sesamoids are grossly unremarkable. SOFT TISSUE: Normal. IMPRESSION: Moderate degenerative changes seen at the 1st MTP joint. DATA REPOSITORY: RADIATION DOSE DELIVERED:
--- NOTE | 2024-02-08 06:45 | DI.RAD_ITS ---
Exam(s) XR TOE RT GREAT EXAM: XR TOE RT GREAT CLINICAL HISTORY: pain rt great toe,m79.674. TECHNIQUE: 2D digital imaging was performed. Three views were obtained. COMPARISON: No exams were available for comparison FINDINGS: BONES: No acute fracture is present. No bony destructive lesion is seen. There is a chronic deformi ty involving the terminal tuft of the great toe. JOINTS: No dislocation present. There are marked degenerative changes seen at the 1st metatarsophala ngeal joint with joint space narrowing and osteophytes present. The sesamoids are grossly unremarkab le. No erosions are present. SOFT TISSUE: Normal. IMPRESSION: Marked degenerative changes seen at the 1st MTP joint. DATA REPOSITORY: RADIATION DOSE DELIVERED:
== END 2024-02-08 00:38 ==
LOC: DI 00:21
PROVIDERS: PCP Family Medicine; Visit Provider Podiatrist
DX: M79.674 Pain in right toe(s) (principal); M79.672 Pain in left foot
CPT/HCPCS: 73660

== ENCOUNTER 2024-03-07 10:02 | Outpatient (REF) | payer OTHER, SELFPAY ==
[2024-03-07 15:19] LABS: HCT 40.8 % (36.0-46.0); HGB 12.8 g/dL (11.2-15.7); MCH 30.3 pg (27.0-33.0); MCHC 31.4 % (32.0-36.0); MCV 97 fL (80-95); MPV 9.4 fL (8.0-11.0); Platelet Count 364 10^3/uL (130-400); RBC 4.22 10^6/uL (3.93-5.22); RDW 14.6 % (11.7-14.6); RDW-SD 51.5 fL; WBC 9.03 10^3/uL (4.4-10.8)
[2024-03-07 15:53] LABS: BUN 33 mg/dL (7-18); Calcium 8.9 mg/dL (8.5-10.1); Chloride 109 mmol/L (98-107); Estimated GFR 28.07 (mL/min/1.73m2); Ferritin 58 ng/mL (8-252); Glucose 140 mg/dL (74-106); Potassium 5.2 mmol/L (3.5-5.1); Sodium 146 mmol/L (136-145)
== END 2024-03-07 10:03 | disposition home or self-care (01) ==
LOC: NCHCN 10:02
PROVIDERS: PCP Family Medicine; Visit Provider Family Medicine
DX: N18.32 Chronic kidney disease, stage 3b (principal)
CPT/HCPCS: 80048; 85027; 82728

== ENCOUNTER 2024-05-08 12:08 | Outpatient (REF) | payer OTHER, SELFPAY ==
[2024-05-08 15:54] LABS: Anion Gap 7.7 mmol/L (3-11); BUN 30 mg/dL (7-18); CO2 28.3 mmol/L (21.0-32.0); CREATININE 1.9 mg/dL (0.55-1.02); Calcium 9.3 mg/dL (8.5-10.1); Chloride 107 mmol/L (98-107); Estimated GFR 29.86 (mL/min/1.73m2); Glucose 71 mg/dL (74-106); Potassium 4.9 mmol/L (3.5-5.1); Sodium 143 mmol/L (136-145)
== END 2024-05-08 12:09 | disposition home or self-care (01) ==
LOC: NCHCN 12:08
PROVIDERS: PCP Family Medicine; Visit Provider Family Medicine
DX: E87.5 Hyperkalemia (principal)
CPT/HCPCS: 80048

== ENCOUNTER 2024-06-23 12:59 | Outpatient (REF) | payer OTHER, SELFPAY ==
[2024-06-24 02:59] LABS: Bilirubin Negative (Negative); Blood Small (Negative); Clarity Sl Cloudy (Clear); Glucose Negative (Negative); Ketones Negative (Negative); Leukocyte Esterase Small (Negative); Nitrite Negative (Negative); Urobilinogen 0.2 mg/dL (Up to 0.2)
[2024-06-24 03:26] LABS: Bacteria Moderate HPF (Negative); Casts Negative LPF (Negative); Crystals Negative HPF (Negative); Epithelial Cells Few HPF (Negative); Mucus Moderate (Negative); WBC 20-50 HPF (0-5)
[2024-06-24 03:27] LABS: C & S Indicated? C&S Done As Ordered
== END 2024-06-23 13:00 | disposition home or self-care (01) ==
LOC: NCHCN 12:59
PROVIDERS: PCP Family Medicine; Visit Provider Family Medicine
DX: R30.0 Dysuria (principal); B96.29 Other Escherichia coli [E. coli] as the cause of diseases classified elsewhere
CPT/HCPCS: 87077; 81003; 81015; 87086; 87186

== ENCOUNTER 2024-08-08 09:43 | Day surgery (SDC) | payer OTHER, SELFPAY ==
--- NOTE | 2024-08-07 20:24 | PDOC.DSDIS_ITS ---
Date of service: 08/08/24 Discharge Plan Disposition Patient Disposition: Home Condition: Good Discharge Details Reason For Visit: screening colonoscopy Attending Provider: Tino Lei Primary Care Provider: Trinh Coates Home Meds and New Rx's Prescriptions: Continued calcium carbonate [Calcium 600] 600 mg calcium (1,500 mg) tablet 600 mg PO DAILY aspirin 81 mg tablet,delayed release (DR/EC) 81 mg PO DAILY polyethylene glycol 3350 17 gram powder in packet 17 g PO BID PRN fluoxetine [Prozac] 40 MG capsule 40 mg PO DAILY diltiazem HCl 240 MG capsule,extended release 24hr 240 mg PO HS rosuvastatin [Crestor] 10 mg tablet 10 mg PO DAILY Zepbound 5 mg/0.5 mL pen injector 5 mg subcut QWEEK cholecalciferol (vitamin D3) 1,000 UNITS tablet 1,000 units PO DAILY losartan 25 mg Tablet 100 mg PO DAILY acetaminophen 500 mg Tablet 650 mg PO QID Qty: 0 0RF docusate sodium [Colace] 100 mg Capsule 100 mg PO TID Qty: 0 0RF ustekinumab [Stelara] 45 mg/0.5 mL syringe 45 mg SUBCUT Q12W dibucaine 1 % ointment 1 applic VA QID PRNQty: 56 3RF spironolactone 25 mg tablet 25 mg PO DAILY Patient Comments: TAKE 1 TABLET BY MOUTH ONCE DAILY gabapentin 300 mg capsule 300 mg PO BID Patient Comments: TK 1 C PO IN THE MORNING AND HS exemestane 25 mg tablet 25 mg PO DAILY Patient Comments: TAKE 1 TABLET BY MOUTH DAILY Discontinued bisacodyl [Dulcolax (bisacodyl)] 5 mg tablet,delayed release (DR/EC) 5 mg PO ONCE Qty: 4 0RF Rx Instructions: Take per colonoscopy instructions provided by ordering providers office polyethylene glycol 3350 17 gram/dose powder 17 g PO ONCE Qty: 238 0RF Rx Instructions: Take per colonoscopy instructions provided by ordering providers office Discharge Instructions Instructions: Colon polyps, Diverticulosis Additional Instructions: Wendy, is a pleasure meeting you today, and hope you are comfortable through the procedure, and that you feel well this afternoon. Things went very smoothly. I did find, remove 3 polyps today. These were small. I do not find them particularly worrisome. These will be sent off to the pathologist for their review. Once I know the nature of these polyps, my office will be in touch with recommendations for future colonoscopies. Incidentally, you also have diverticulosis, and a rectocele. I think both of those things would benefit from bulking agents such as Metamucil or similar fiber products. If you need anything, or have any questions at all, please do not hesitate to ask, otherwise we will let you know as soon as the pathology results are available. 1. If tolerated, consume a soft, low fiber diet for 1-2 days. 2[address] Do not drive, drink alcohol, operate machinery, make critical decisions, or d o activities that require coordination or balance for 24 hours. 3. Because air was put into your colon during the procedure, expelling air from your rectum (passing gas or farting) is normal. 4. You may not have a bowel movement for 1-3 days because of the colonoscopy prep. This is normal. 5. Go directly to the emergency room if you notice any of the following: Develop chills (warm to touch), or if you have a thermometer and your temperature is above 101 Difficulty breathing or difficultly swallowing Persistent vomiting Severe abdominal pain, other than gas cramps Severe chest pain Black, tarry stools Any bleeding ? exceeding one tablespoon 6. Call your physician if the site where your intravenous was started becomes red, swollen, painful, and warm to touch. 7. Your physician has reviewed your pre-procedure medications. Please continue to take those medications as previously ordered. You will be given specific information/education regarding any changes to your medications before leaving. Stand Alone Forms: Anesthesia Discharge Inst., Maximus Maldonado (DSU) Activity:: Activity as Tolerated Diet:: As Tolerated Discharge Orders Discharge Orders: Discharge Order (Routine); Ordered 08/07/24 Ordered By: Tino Lei DS: Diagnosis Discharge Diagnosis (1) Encounter for screening colonoscopy: Status: Acute Asessment and Plan: Follow-up on polypectomy results
--- NOTE | 2024-08-07 20:32 | W.COLOREPORT ---
Date of service: 08/08/24 Time of Service: 11:48 Colonoscopy Report Date of procedure: 08/08/24 Pre-op diagnosis general: screening colonoscopy Post-op diagnosis procedure note: other (Rectocele, diverticulosis, colon polyps) Procedure: colonoscopy with polypectomy Surgeon: Tino Lei Anesthesia Type: General:No Airway Estimated blood loss (mL): 10 Pathology: other (0.25 cm rectal polyp, 0.25 cm polyp at 75 cm, 0.5 cm polyp at 30 cm) Complications: None Disposition: same day Indications: Wendy is a 59 year old woman who needs a screening colonoscopy Prep: Miralax/Dulcolax Procedure Start Time: 11:15 Procedure End Time: 11:38 Retraction Time: 8 Findings: Rectocele, diverticulosis, colon polyps Procedure Description: After the induction of monitored anesthetic care, and with the patient in left lateral decubitus position, I began by performing an external anorectal exam.? Perineum and skin were normal, as was the anal verge.? There are external hemorrhoids.? Next, I performed a digital rectal exam.? There is a rectocele.? Next, I advanced a colonoscope into the rectal vault.? I performed retroflexion.? There is scarring from previous hemorrhoid excision.? In the midportion of the rectal vault was a 0.25 cm flat polyp. Narrowband imaging was used to assist with the analysis. This appeared most consistent with a hyperplastic polyp, but given the history, to be safe, I did remove this with cold forceps. There was minimal bleeding. Using irrigation, I then advanced the colonoscope beyond the rectal folds and into the sigmoid colon before advancing towards the cecum.? There is extensive diverticulosis. The scope was noted to be in the cecum by identification of the ileocecal valve and appendiceal orifice.? I then began withdrawing the colonoscope using repeated irrigation as necessary for full evaluation of the colonic mucosa. Around 75 cm from the anal verge was a 0.25 cm flat polyp. This was removed with cold forceps with minimal bleeding. Another polyp was found around 30 cm from the anal verge. This was flat, and about 0.5 cm. Based on the appearance, I suspect this might actually be an inverted diverticula, but the periphery did appear consistent with polypoid tissue, therefore, I did remove this in piecemeal with cold forceps. There was minimal bleeding from this. Once the scope was withdrawn to the level of the rectum, great care was taken to examine portions of the rectal folds.? Finally, the scope was withdrawn and the patient was brought to the same-day surgery recovery unit as the anesthetic wore off. ?The findings and instructions were shared with the patient prior to discharge. [place] Bowel Prep [place] Bowel Prep Right Colon: 3 Left Colon: 3 Transverse Colon: 3 Total Score: 9
[2024-08-08 09:58] VITALS: BP 146/112; PULSE 77; RESP 18; TEMP 35.9; O2SAT 97
--- NOTE | 2024-08-08 10:02 | W.ANESPRE ---
General Info Date of Service Date Performed: 08/08/24 Height: 5 ft Weight: 73.6 kg Body Mass Index (BMI): 31.6 Surgical Procedure: Operation Date: 08/08/24 11:20 Proposed Procedure Side Surgeon dontae Lei MD Meds Allergies and Home Medications Allergies Allergy/AdvReac Type Severity Reaction Status Date / Time sertraline (From Zoloft) Allergy Skin Rash Verified 08/08/24 09:55 Penicillins AdvReac Intermediate Thrush Verified 08/08/24 09:55 Home Medication ?Medication ?Instructions ?Recorded diltiazem HCl 240 mg 240 mg PO HS 01/06/13 capsule,extended release 24 hr fluoxetine 40 mg capsule (Prozac) 40 mg PO DAILY 01/06/13 cholecalciferol (vitamin D3) 25 1,000 units PO DAILY 03/06/13 mcg (1,000 unit) tablet losartan 25 mg tablet 100 mg PO DAILY 10/24/17 gabapentin 300 mg capsule 300 mg PO BID 07/27/19 spironolactone 25 mg tablet 25 mg PO DAILY 07/27/19 rosuvastatin 10 mg tablet (Crestor) 10 mg PO DAILY 09/24/20 exemestane 25 mg tablet 25 mg PO DAILY 12/22/20 calcium carbonate (Calcium 600) 600 mg PO DAILY 12/06/21 aspirin 81 mg tablet,delayed 81 mg PO DAILY 09/19/22 release acetaminophen 500 mg tablet 650 mg (1.3 x 500 mg) PO QID #0 05/21/23 tabs docusate sodium 100 mg capsule 100 mg PO TID #0 caps 05/21/23 (Colace) ustekinumab 45 mg/0.5 mL 45 mg subcut Q12W 05/23/23 subcutaneous syringe (Stelara) dibucaine 1 % rectal ointment 1 applic FL QID PRN #56 grams 09/24/23 polyethylene glycol 3350 17 gram 17 g PO BID PRN 12/04/23 oral powder packet tirzepatide (weight loss) 5 mg/0.5 5 mg subcut QWEEK 06/17/24 mL subcutaneous pen injector (Zepbound) Current Visit Medications: Current Medications Generic Name Dose Route Start Last Admin Trade Name Freq PRN Reason Stop Dose Admin Ringer's Solution 1,000 mls @ 80 mls/hr 08/08/24 06:00 IV 08/08/24 23:59 [facility] IV Miscellaneous Supplies 1 each 08/08/24 06:00 Iv Access IV 08/08/24 23:59 DIRECTED GEORGINA Ondansetron HCl 4 mg 08/07/24 20:33 Ondansetron 4 Mg/2 Ml Vial IVP 09/06/24 20:32 Q4H PRN PRN Nausea / Vomiting Sodium Chloride 0 ml 08/08/24 06:00 Normal Saline Flush 10 Ml Syr IV 08/08/24 23:59 PRN PRN Sodium Chloride 0 ml 08/08/24 06:00 Normal Saline 10 Ml Vial IJ 08/08/24 23:59 DIRECTED PRN Sterile Water 0 ml 08/08/24 06:00 Water,Injection,Sterile 10 Ml Vial IJ 08/08/24 23:59 DIRECTED PRN PFSH Active Problems Active Problems: Problem Status Onset Code Encounter for screening colonoscopy Acute Z12.11 Ingrown toenail Acute L60.0 Skin lesion Acute L98.9 Fibroma Acute D21.9 Pain of right great toe Acute M79.674 Pain in left foot Acute M79.672 No-show for appointment Acute Z91.199 Acute medial meniscus tear of right knee Acute ~12/01/23 S83.241A Difficult intravenous access Acute Z78.9 Intractable back pain Acute M54.9 Severe back pain Acute M54.9 Acute medial meniscus tear of left knee Acute ~10/07/22 S83.242A Brain aneurysm Acute I67.1 Sessile colonic polyp Acute K63.5 Tubular adenoma of colon Acute D12.6 Acute lateral meniscal injury of left knee Acute S83.8X2A Lichen simplex chronicus Acute L28.0 JACQUELYN (obstructive sleep apnea) Chronic G47.33 Left ACL tear Acute ~03/2020 S83.512A Medical History Medical History Internal hemorrhoids External hemorrhoids Constipation Exophthalmos History of left breast cancer Sciatica Prediabetes Chronic kidney disease Peripheral neuropathy Lymphedema Left arm Hyperaldosteronism Right rotator cuff tendonitis Right lateral epicondylitis Trigger ring finger of right hand Biceps tendinitis of right shoulder s/p right shoulder arthroscopy DOS: 12/12/19 Arthritis of right acromioclavicular joint s/p right shoulder arthroscopy DOS: 12/12/19 Vulvar rash (12/11/13) lichen simplex chronicus, w/ features of psoriasis which pt has on hands and elsewhere. treated w/ steroids Tinnitus (10/27/15) Left ureteral stone (03/02/17) Irregular bleeding (05/14/14) currently treated w/ POPs, to amenorhea History of hyperparathyroidism (03/02/17) Bursitis of shoulder (12/30/12) Bilateral kidney stones (03/02/17) Abnormal auditory perception (10/27/15) Obesity Hypertension Psoriasis Proteinuria Impaired fasting glucose Kidney stone Hyperlipidemia Herpes, genital Fibrocystic breast Depression Attention deficit disorder (ADD) Hypomagnesemia Hx of hypoparathyroidism History of hypothyroidism Psoriasis Breast cancer Seroma complicating a procedure Leukocytosis Hypokalemia Surgical History Surgical History Status post hemorrhoidectomy Brain surgery within last 3 months angiogram for stent F/U with neuro last seen 03/2024 Hx of knee surgery History of ankle surgery Left Hx of shoulder surgery Left Hx of bilateral mastectomy Hx of shoulder surgery L arm clavicle and muscle Rotator cuff tear, right s/p right shoulder arthroscopy with arthroscopic biceps tenodesis DOS: 12/12/19 RIGHT THUMB ARTHROPLASTY (01/27/15) DR. KANG [place] [facility] [place] Tobacco Smoking/Tobacco Use Status: Former Tobacco Use Passive smoking exposure: No Alcohol Alcohol Intake: current Alcohol intake frequency: a few times a week Substance Use Substance use: Never Substance use type: does not use Vital Signs and Lab Results Vital Signs Most Recent Vital Signs in EMR: Most Recent Vital Signs Temp Pulse Resp BP Pulse Ox 35.9 C L 77 18 146/112 H 97 08/08/24 09:58 08/08/24 09:58 08/08/24 09:58 08/08/24 09:58 08/08/24 09:58 Imaging and Studies Imaging and Studies Study information below may be from another EMR and interpreted by another provider. Please see original notes in EMR for more complete details. Echocardiogram Summary: 12/11: LVEF 55-60%, no sig valve dz. 06/01/2017: [facility] [place]: EF 70%, Mild LVH, Trace MR, Other valves normal. Anesthesia Assessment and Plan Anesthesia History Personal History: No History of Anesthesia Complications Family History: No Family History of Anesthesia Complications Exercise Tolerance Exercise Tolerance: Metabolic Equivalents>4 Cardiac & Pulmonary Exam Cardiac Exam: Normal S1/S2 Heart Sounds Pulmonary Exam: Clear Bilateral Breath Sounds Implantable Cardiac Device Does patient have a Pacemaker or an ICD?: No Airway Exam Known Difficult Airway: No Mallampati Class: 2 Mouth Opening: Normal (> 3cm) Thyromental Distance: Less than 3 cm Neck Range of Motion: Full ROM Neck Circumference: Normal Teeth Condition: Normal Dentition ASA Classification ASA Score: ASA 3 Emergency Case?: No NPO Status NPO Status: NPO Clears >2 hours, Solids >8 hours Anesthesia Plan Resuscitation Status: Full Code Anesthesia Technique: General Anesthesia Airway Planned: Natural Airway Monitors Used: Standard Monitors Preoperative Comments:: 59 yo female for colo Sig PHMx: HTN (losartan/diltiazem - didnt' take today), JACQUELYN, 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 flow diverting stent embolization performed 08/11 [facility] [place] preDM, elevated BMI (zepbound), hyperaldosteronism, beast CA (mastectomy, radiation, chemo), CKD, former smoker (quit 1992), occ ETOH. Previous Anes: - ACL reconstruction, easy mask, mac 3 grade 1. - colo, prop, natural airway, no issues. - ACL, dex/ketamine, prop, glide 3 grade 1, easy mask. femoral nerve block, 15 mL 0.5%, exparel 10 mL, 9/10 pain on post op note. - shoulder, prop, phenyl, glide 3 grade 1, easy mask. ISB, 15 mL 0.5% bup, exparel 10 mL - [facility] [place] mastectomy, mac 3 marquise 1. IV started by me. DSU attempted, but unable to advance. Does have a large AC that was identified under US where a cath was placed
[2024-08-08 10:04] VITALS: BMI 31.6
[2024-08-08] MEDS: Lactated Ringers 1,000 ML 80 ML IV (10:26)
--- NOTE | 2024-08-08 10:33 | W.ANESVAS ---
Peripheral IV Placement Date Performed: 08/08/24 Procedure Time: 10:20 Requesting Provider: Tino Lei Procedure Location: Day Surgery Unit Sedation Given (Indicate Dose Given): No Sedation given Patient Mental Status: Awake Laterality: Right Insertion Site: Antecubital Size & Type: 20 ga. Dressing: Tegaderm Applied Ultrasound: Sterile probe cover and gel used Ultrasound Image Saved?: Yes Number of Attempts (See previous attempts in note section): 1 Procedure Tolerated: No Complications Procedure Outcome: Successful Performed By: Sushant Montoya
--- NOTE | 2024-08-08 11:18 | BOWEL_PTH ---
PATIENT: Wendy Sandoval LOC: [facility] U#:[id number] AGE/SX: 59/F ROOM: RE08/08/[address]: Tino Lei MD : [id number] BED: DIS: 08/08/2024 SPEC #: [id number] RECD: 08/08/24 13:04 STATUS: SPIKE RE #: [id number] SNOW: 08/08/24 11:[address]: Tino Lei DEPT: Surgical Specimen RECD BY: Micaela Iverson ENTERED: 08/08/24 13:06 SP TYPE: Bowel OTHR DR: Trinh Coates Tissues: 1 - BIOPSY BOWEL 2 - BIOPSY BOWEL 3 - BIOPSY BOWEL Procedures: GROSS AND MICRO LEVEL 4 Comments:
[2024-08-08 11:45] VITALS: BP 131/85; PULSE 78; RESP 16; TEMP 36; O2SAT 95
[2024-08-08 12:15] VITALS: BP 170/111; PULSE 67; RESP 18; TEMP 36.1; O2SAT 97
[2024-08-08 12:17] VITALS: BP 168/125
[2024-08-08 12:35] VITALS: BP 164/120
--- NOTE | 2024-08-08 13:03 | W.ANESPOSTOP ---
Postoperative Evaluation Date, Time and Location Date Performed: 08/08/24 Time Performed: 13:03 Patient Location: Day Surgery Unit Vital Signs Most Recent Imported Vital Signs: Most Recent Vital Signs Temp Pulse Resp BP Pulse Ox 36.1 C L 67 18 164/120 H 97 08/08/24 12:15 08/08/24 12:15 08/08/24 12:15 08/08/24 12:35 08/08/24 12:15 Pain Score Most Recent Pain Score: Most Recent Pain Score Pain Level 0 08/08/24 12:35 Assessment Mental Status: Awake (Alert & Oriented to Patient Baseline) Airway and Respiratory Function: Patent airway with normal (patient baseline) respiratory exam Cardiovascular Function: Hemodynamically Stable Hydration Status: Adequately Hydrated Nausea & Vomiting: No Nausea or Vomiting Pain: Pt. Denies Any Pain Peripheral Nerve Block: Patient did not receive a nerve block Postoperative Comments:: Seen earlier and doing well
== END 2024-08-08 12:38 | disposition home or self-care (01) ==
LOC: SUR 09:43
PROVIDERS: PCP Family Medicine; Visit Provider Surgery
PROC: 0DJD8ZZ Inspection of Lower Intestinal Tract, Via Natural or Artificial Opening Endoscopic (ICD-10-PCS; CPT 45378; principal; 2024-08-08 11:15)
DX: Z12.11 Encounter for screening for malignant neoplasm of colon (principal); K63.5 Polyp of colon; K57.30 Diverticulosis of large intestine without perforation or abscess without bleeding; N81.6 Rectocele; K63.89 Other specified diseases of intestine
CPT/HCPCS: 45380; 76942; 88305; J1885; J2704

== ENCOUNTER 2024-08-13 21:30 | Outpatient (REF) | payer OTHER, SELFPAY ==
[2024-08-13 21:13] LABS: Bilirubin Negative (Negative); Blood Small (Negative); Clarity Sl Cloudy (Clear); Glucose Negative (Negative); Ketones Negative (Negative); Leukocyte Esterase Small (Negative); Nitrite Positive (Negative); Urobilinogen 0.2 mg/dL (Up to 0.2); pH 5.5 (5-8)
[2024-08-13 21:18] LABS: Epithelial Cells Few HPF (Negative); Other Cells Rare Renal (Negative)
[2024-08-13 21:19] LABS: Bacteria Many HPF (Negative); C & S Indicated? Yes; Casts Negative LPF (Negative); Crystals Negative HPF (Negative); Mucus Trace (Negative)
== END 2024-08-13 21:31 | disposition home or self-care (01) ==
LOC: NCHCN 21:30
PROVIDERS: PCP Family Medicine; Visit Provider Family Medicine
DX: R39.9 Unspecified symptoms and signs involving the genitourinary system (principal); B96.29 Other Escherichia coli [E. coli] as the cause of diseases classified elsewhere
CPT/HCPCS: 87077; 81003; 81015; 87086; 87186

== ENCOUNTER 2024-08-15 00:16 | Outpatient (CLI) | payer OTHER, SELFPAY ==
--- NOTE | 2024-08-15 | DI.RAD_ITS ---
Exam(s) XR SACROILIAC JOINTS EXAM: XR SACROILIAC JOINTS CLINICAL HISTORY: PAIN RT SACROILIAC JOINT RT, M53.3, SACROCOCCYGEAL DISORDERS. TECHNIQUE: 2D digital imaging was performed. COMPARISON: CT CT PELVIC WO from 05/18/2023 MR MR LUMBAR SPINE WO/W from 05/21/2023 FINDINGS: Bones: No fracture is present. No bony destructive lesion is seen. Enthesophytes are present at the iliac crests. Joints: No fusion, erosions or sclerosis is seen. Minimal spurring. The hip joint spaces are maintained. There is mild acetabular spurring. Facet joint degenerative changes are noted in the lower lumbar spine. Soft Tissue: Multiple surgical clips IMPRESSION: Mild degenerative changes of the sacroiliac joints. No evidence of bony erosions. DATA REPOSITORY: RADIATION DOSE DELIVERED:
== END 2024-08-15 00:36 ==
LOC: DI 00:16
PROVIDERS: PCP Family Medicine; Visit Provider Family Medicine
DX: M53.3 Sacrococcygeal disorders, not elsewhere classified (principal)
CPT/HCPCS: 72202

== ENCOUNTER 2024-09-22 01:18 | Outpatient (CLI) | payer OTHER, SELFPAY ==
--- NOTE | 2024-09-22 | DI.MRI_ITS ---
Exam(s) MR LUMBAR SPINE WO/W EXAM: MR LUMBAR SPINE WO/W CLINICAL HISTORY: LUMBAGO W/SCIATICA RT SIDE BILAT LOW BACK PAIN WORSE W/PT AND RT SIDE, FU. TECHNIQUE: Multiplanar multisequence MRI of the Lumbar spine was performed with both pre and post contrast infused sequences.. IV contrast = Dotarem 15 mL COMPARISON: MR MR LUMBAR SPINE WO/W from 05/21/2023 CR XR SACROILIAC JOINTS from 08/15/2024 FINDINGS: Conus medullaris is at normal level. There is no evidence of conus mass nor subjacent clumping of intrathecal nerve roots to suggest arachnoiditis. The distal thecal sac appears unremarkable.There is no evidence of Tarlov intrasacral cysts nor other significant findings within the sacral canal Bones:There are no fractures nor ominous osseous lesions in the lumbar vertebral bodies and visualized sacrum. With respect to the individual levels... T12-L1: Unremarkable, and no abnormal enhancement L1-2: Normal disc height and signal. No disc herniation nor central canal stenosis.No foraminal stenosis. No abnormal enhancement L2-3: Normal disc height. No disc herniation nor central canal stenosis.No foraminal stenosis.No facet arthropathy. No abnormal enhancement. L3-4: There is chronic disc space narrowing at this level with asymmetric advanced narrowing on the right side of the disc space and bridging lateral right osteophytes. The left side of this disc space exhibits less narrowing. There is presently no abnormal signal nor enhancement within the diminished disc space. No evidence of discitis. There are mild Modic type 2 sub endplate fatty marrow changes. There is symmetrical broad annular bulging which extends into the floor both exiting neural foramina. There is mild central spinal canal stenosis, similar to previousthere is moderate asymmetric foraminal stenosis on the right side which is similar to the previous study and related to the asymmetric advanced disc height loss on the right side of the disc space, when compared to the left side. There is milder foraminal stenosis on the opposite- left side at this level again noted.There are only mild degenerative changes in the facet joints at this level. L4-5: This level exhibits normal disc height. No abnormal high signal nor enhancement evident within the disc space. However, posteriorly there is a significant disc herniation which extends posteriorly and caudally and compresses the thecal sac, extending posteriorly 7 mm and also extending caudally approximately 8 mm behind the superior aspect of L5 vertebral body. Abnormal signal and enhancement within/around both facet joints at this level. There are no distinct degenerative synovial cysts coming off of the facet joints. There is significant moderate-severe central spinal canal stenosis at this level due to the herniated disc as well as related to mild degenerative anterolisthesis of L4 upon L5 (which was not evident in May 2023) in short AP dimensions of the pedicles. There is significant foraminal stenosis on the left side at this level, similar to previous. No obvious foraminal stenosis on the right side. L5-S1: This level exhibits normal disc height and relatively preserved signal. There is some central subligamentous annular bulging at this level which is unchanged from May 2023. There is no new prominent disc herniation. Central canal dimensions are within normal limits. There does not appear to be significant abnormal enhancement at this level and no abnormal signal within nor enhancement of the facet joints at the L5-S1 level. There is mild bilateral foraminal stenosis at this level. Soft tissues: There is an abnormal fluid collection with peripheral enhancement enhancement in the posterior right paraspinal musculature subjacent to the deep subcutaneous fat which extends from L1 level down to upper L4 level. This collection measures 3 cm wide by 1 cm AP. It is difficult to measure in craniocaudal as the field of view on the sagittal images does not extend as lateral as this collection. First consideration is that this may represent an abscess. Correlation with any prior instrumentation such as spinal injections recommended. This finding was not evident on MRI scan of May 2023. Benign-appearing bilateral renal cysts are partially included in the field of view. These do not require follow-up. IMPRESSION: 1. Compared to the prior MRI scan of May 2023 there is now an abnormal fluid collection with peripheral enhancement in the posterior right paraspinal musculature extending from L1 to upper L4 level at the level of the iliocostalis and longissimus dorsi muscles. This may be concerning for an abscess, particularly if there has been prior instrumentation, such as percutaneous spinal injections. 2. There is also a central disc herniation now evident at L4-5 level significantly compressing the thecal sac and there is significant moderate- severe central canal stenosis at this level evident, also compounded by an element of mild degenerative anterolisthesis of L4 upon L5. 3. There is also abnormal signal and enhancement both facet joints at the L4-5 level as well as within the ligamentum flavum. Concerning for inflammatory process. Cannot exclude infectious process, particularly given the additional findings/possible abscess described in the posterior right musculature. 4. There is asymmetric foraminal stenosis on the left side at the L4-5 level Other findings as described individually above. DATA REPOSITORY:
[2024-09-22] MEDS: Gadoterate meglumine 20 ML SYRINGE 15 ML IVP (13:17)
[2024-09-22] MEDS: Normal Saline Flush 10 ML SYR IVP (13:18)
--- NOTE | 2024-09-22 17:04 | DI.VRAD_ITS ---
PROCEDURE INFORMATION: Exam: MR Lumbar Spine Without and With Contrast Exam date and time: 09/22/2024 1:14 PM Age: 59 years old Clinical indication: Pain; Lumbago with sciatica; Right; Additional info: Lumbago w/sciatica RT side bilat low back pain worse w/pt and RT side, fu TECHNIQUE: Imaging protocol: Magnetic resonance imaging of the lumbar spine without and with contrast. Contrast material: DOTAREM; Contrast volume: 15 ml; Contrast route: INTRAVENOUS (IV); COMPARISON: MR LUMBAR SPINE WO/W 05/21/2023 9:20 AM FINDINGS: Bones/joints: Loss of lumbar lordosis is presumed degenerative. There is mild anterolisthesis of L4 on L5 and minimal retrolisthesis of L3 on L4. Minimal chronic loss of vertebral body height No fracture. Spinal cord: Visualized cord, conus medullaris and cauda equina are unremarkable without compression. No abnormal nerve root enhancement. L1-L2: No significant disc bulge or herniation. No severe spinal canal stenosis. No significant neural foraminal narrowing. Facet hypertrophic changes noted L2-L3: No significant disc bulge or herniation. No severe spinal canal stenosis. No significant neural foraminal narrowing. Facet hypertrophic changes noted L3-L4: Disc bulge eccentric to the right combines with inferior osteophytes from L3 producing severe right and moderate left foraminal stenosis. Mild central canal stenosis Mild thickening of the ligamentum flavum L4-L5: Inferiorly directed central disc herniation with moderate nerve root compression sagittal image 8. Uncovering of the intervertebral disc and facet hypertrophic changes produce moderate to severe foraminal stenosis left greater than right. Thickening of the ligamentum flavum noted L5-S1: Mild disc bulging with facet hypertrophic changes produce moderate to severe left and moderate right foraminal stenosis. Mild central canal stenosis Soft tissues: Mild enhancement and edema adjacent to the L4-L5 facets Renal cysts bilaterally IMPRESSION: Central disc herniation at L4-L5 directed inferiorly with moderate nerve root compression. Left greater than right foraminal stenosis at L4-L5 Mild edema and abnormal enhancement adjacent to the L4-L5 facets presumed infectious/inflammatory Additional multilevel degenerative changes most pronounced at L3-L4 Dictated and Authenticated by: Ermias Grande MD. Orderin Amna Brar MD
== END 2024-09-22 01:38 ==
LOC: DI 01:18
PROVIDERS: PCP Family Medicine; Visit Provider Nurse Practitioner Family
DX: M54.41 Lumbago with sciatica, right side (principal); M51.26 Other intervertebral disc displacement, lumbar region
CPT/HCPCS: 72158

== ENCOUNTER 2024-10-17 15:29 | Outpatient (REF) | payer OTHER, SELFPAY ==
[2024-10-17 15:48] LABS: Anion Gap 8.2 mmol/L (3-11); BUN 46 mg/dL (7-18); CO2 28.8 mmol/L (21.0-32.0); Calcium 9.2 mg/dL (8.5-10.1); Chloride 105 mmol/L (98-107); Estimated GFR 33.91 (mL/min/1.73m2); Glucose 73 mg/dL (74-106); Magnesium 2.1 mg/dL (1.8-2.4); Potassium 4.3 mmol/L (3.5-5.1); Sodium 142 mmol/L (136-145)
== END 2024-10-17 15:30 | disposition home or self-care (01) ==
LOC: NCHCN 15:29
PROVIDERS: PCP Family Medicine; Visit Provider Family Medicine
DX: N18.32 Chronic kidney disease, stage 3b (principal)
CPT/HCPCS: 80048; 83735

== ENCOUNTER 2024-10-24 13:17 | Outpatient (REF) | payer OTHER, SELFPAY ==
[2024-10-24 20:55] LABS: Glucose Negative (Negative)
[2024-10-24 21:01] LABS: RBC 0-2 HPF (0-2); WBC >50 HPF (0-5)
== END 2024-10-24 13:18 | disposition home or self-care (01) ==
LOC: NCHCN 13:17
PROVIDERS: PCP Family Medicine; Visit Provider Family Medicine
DX: R30.0 Dysuria (principal); B96.29 Other Escherichia coli [E. coli] as the cause of diseases classified elsewhere; R82.89 Other abnormal findings on cytological and histological examination of urine
CPT/HCPCS: 81003; 81015

== ENCOUNTER 2025-01-19 13:45 | Outpatient (REF) | payer OTHER, SELFPAY ==
[2025-01-19 15:55] LABS: Hemoglobin A1C 5.2 % (<5.7)
[2025-01-19 16:10] LABS: Anion Gap 9.5 mmol/L (3-11); BUN 32 mg/dL (9-23); CO2 26.5 mmol/L (20.0-31.0); Calcium 9.7 mg/dL (8.3-10.6); Chloride 108 mmol/L (98-107); Glucose 91 mg/dL (74-106); Magnesium 2.1 mg/dL (1.6-2.6); Potassium 4.8 mmol/L (3.5-5.1); Sodium 144 mmol/L (136-145)
== END 2025-01-19 13:46 | disposition home or self-care (01) ==
LOC: NCHCN 13:45
PROVIDERS: PCP Family Medicine; Visit Provider Family Medicine
DX: E26.9 Hyperaldosteronism, unspecified (principal); R73.03 Prediabetes
CPT/HCPCS: 80048; 83036; 83735

== ENCOUNTER → 2025-01-27 00:38 | Outpatient (CLI) | payer OTHER, SELFPAY ==
--- NOTE | 2025-01-27 08:38 | DI.RAD_ITS ---
Exam(s) XR CLAVICLE LT EXAM: XR CLAVICLE LT CLINICAL HISTORY: COLLAR BONE PAIN, M89.8X1 OTHER SPECIFIED DISORDERS BONE SHOULDER. TECHNIQUE: 2D digital imaging was performed. COMPARISON: CT CT CHEST W from 07/09/2019 CR XR SHOULDER RT COMPLETE 2+V from 08/05/2019 FINDINGS: Two views: No evidence of acute fracture of the left clavicle. There is significant widening of the AC joint which is chronic appearing and probably postsurgical. Bone density normal. No osseous lesions. IMPRESSION: No acute osseous findings in the left clavicle. Widened AC joint as chronic appearance and probably postsurgical. DATA REPOSITORY: RADIATION DOSE DELIVERED:
== END ==
LOC: DI 00:38
PROVIDERS: PCP Family Medicine; Visit Provider Family Medicine
DX: M89.8X1 Other specified disorders of bone, shoulder (principal)
CPT/HCPCS: 73000